=== PATIENT | female | born 1980 | race Caucasian/White ===

== ENCOUNTER 2016-09-12 09:26 | Emergency (ER) | payer OTHER ==
[~2016-09-12] VITALS: Ht 162.6 cm; Wt 96.7 kg
[~2016-09-12 09:26] MED LIST: ALBU1AER9 INH; CIPR-255 PO; CYCL10TA6 PO; DPPI400; GABA1CAP5 PO; IBUP-1450 PO; LISI-461 PO; LPT40 PO; NXM/40 PO
[2016-09-12 09:31] VITALS: TEMP 36.8; Ht 162.6 cm; Wt 96.7 kg
--- NOTE | 2016-09-12 09:58 | DIAGNOSTIC IMAGING REPORT ---
RIGHT HAND MIN 3 VIEWS ROUTINE CLINICAL HISTORY: Right hand pain and swelling. COMPARISON: None DISCUSSION: There is an old fifth metacarpal fracture. There are mild degenerative changes. No acute fractures are visualized. There are no dislocations. There is possible mild osteopenia.. IMPRESSION: 1. Old fifth metacarpal fracture. No acute fractures or dislocations identified. Electronically signed by: Jayro Duke M.D. 09/12/2016 9:57 AM Dictated Date/Time: 09/12/2016 9:55 AM
[2016-09-12] MEDS ORDERED: IBUPROFEN 600 MG TAB PO STA (10:10)
[2016-09-12 10:38] VITALS: BP 119/79; PULSE 95; O2SAT 98
--- NOTE | 2016-09-12 16:39 | EMERGENCY ROOM VISIT NOTE ---
ED Visit Note First contact with patient: 09:37 Chief Complaint: Right hand pain. History of Present Illness: Ms. Gonzalez is a 36-year-old white female who ambulates into the ED complaining of right hand pain over the fifth metacarpal. Historically patient reports she has broken this bone in the past. Patient reports she was struck in the hand over the fifth metacarpal last night with a automatic vulcanizing operator that was on a retract of a leash. She reports since that time she has been having severe sharp pain in that area. She rates her discomfort . Her pain is nonradiating. Her pain worsens with palpation and flexion and extension of the fifth MCP joint. She has not identified any alleviating factors related to the pain. She reports she has been using [id number] medications without relief of her discomfort. Associated with her pain she reports she has a tingling sensation throughout the little finger. She denies forearm pain, wrist pain, hand pain, other finger pain. Review of Systems: As noted above in history of present illness. Past Medical History: (1) Asthma (2) Benign hypertension (3) Deep venous thrombosis (4) Diabetes mellitus (5) Dyslipidemia (6) Kidney stone (7) Sepsis Surgical Problems: (1) Cholecystectomy Current Medications: Medications Dose Route/Sig Max Daily Dose Days Date Category Dose Instructions Cipro (Ciprofloxacin Hcl) 500 Mg Tab 1 Tab PO BID 10 02/12/16 Rx Flexeril (Cyclobenzaprine Hcl) 10 Mg Tab 1 Tab PO BID PRN 30 02/12/16 Reported Motrin (Ibuprofen) 600 Mg Tab 600 Mg PO Q6H PRN 05/05/15 Reported TAKE WITH FOOD Glucophage Ext Rel (Metformin Hcl) 1,000 Mg Tab 1,000 Mg PO BID 03/17/15 Reported Neurontin (Gabapentin) 400 Mg Cap 1 Cap PO TID 30 12/04/14 Reported Depo-Provera Contraceptive (Medroxyprogesterone Acetate (A) 400 Mg/ Inj Q 3 MONTHS 09/26/14 Reported Nexium (Esomeprazole Magnesium) 40 Mg Capcr 40 Mg PO BID 06/01/14 Reported Proair Hfa (Albuterol Sulfate) 108 Mcg/ Aer 2 Puffs INH QID PRN 02/20/14 Reported Atorvastatin Calcium (Atorvastatin) 40 Mg Tab 40 Mg PO HS 02/20/14 Reported Lisinopril 10 Mg Tab 10 Mg PO DAILY 02/20/14 Reported Allergies to Medications: Azithromycin, cephalexin, lidocaine, penicillin, procaine, tramadol. Social History: Patient feels safe in her home environment; she admits to tobacco use. Physical Examination: Vital Signs: Date Time Temp Pulse Resp B/P Pulse Ox O2 Delivery O2 Flow Rate FiO2 09/12/16 10:38 95 119/79 98 Room Air 09/12/16 09:31 36.8 106 22 130/69 96 Room Air GENERAL: 36-year-old female in mild to moderate distress due to pain, nontoxic- appearing, afebrile and hemodynamically stable. NEUROLOGICAL: Awake, alert and oriented to person, place and time. Answering questions appropriately and following commands. SKIN: Warm, dry and pink. No soft tissue trauma noted. RIGHT HAND: No gross bony deformity. No swelling, ecchymosis or erythema. Moderate tenderness over the fifth metacarpal without bony deformity, bony crepitus, swelling or or ecchymosis. No tenderness throughout the distal radius and ulna and the right little finger. Throughout the finger the skin was warm and pink and capillary refill is brisk. She is able to distinguish light sensations through all dermatomes of the finger. She had full range of motion in flexion and extension of the MCP joint and flexion and extension of all interphalangeal joints. ED Course: Patient is assessed as noted above. Patient was given ice for pain and comfort; she initially refused pain medications. Right Hand X-Rays: Were read by myself and the radiologist showing no acute fractures or dislocations. Patient was educated about tonight's findings and instructed on her treatment plan; she verbalizes understanding and agreement with this plan. Patient was placed in a ulnar gutter splint and given 600 mg of ibuprofen by mouth for pain. Patient was educated about today's findings and instructed on her treatment plan ; she verbalizes understanding and agreement with this plan. Clinical Impression: Right hand pain. Possible early contusion. Decision-Making: Initially my differential diagnosis I considered contusion, fracture, dislocation, sprain and other causes. Disposition: Patient discharged home in stable condition; prior to departure she was reassessed and subjectively reported she was feeling slightly better and rated her discomfort 6/10. Plan: Comfort measures were discussed with the patient including rest, splint use, ice and alternating ibuprofen and acetaminophen as needed for pain. Patient was encouraged to follow-up with proposal specialist if no better in 7 -8 days. Patient was encouraged return the ED for worsening pain, worsening numbness/ tingling, swelling, redness, red streaking, fevers or any new/concerning symptoms.
[2016-11-11] MEDS ORDERED: LPT40 PO (14:15)
[2016-11-11] MEDS ORDERED: LSN5 PO (14:15)
[2016-11-11] MEDS ORDERED: TPRSR25 PO (14:15)
[2016-11-11] MEDS ORDERED: ASPEC81 PO (14:15)
[2016-11-11] MEDS ORDERED: PLV75 PO (14:15)
[2016-11-11] MEDS ORDERED: LEVO1TAB34 PO (14:15)
[2016-11-11] MEDS ORDERED: NTRGSL4 SL (14:23)
[2016-11-11] MEDS ORDERED: RANI150T2 PO (14:30)
[2017-03-01] MEDS ORDERED: VNTHFA/IN INH (02:28)
[2017-03-01] MEDS ORDERED: METF1TAB53 PO (09:59)
[2017-03-01] MEDS ORDERED: ASPI81TA28 PO (15:38)
[2017-03-01] MEDS ORDERED: ATOR-26 PO (15:39)
[2017-03-01] MEDS ORDERED: CLOP1TAB15 PO (15:40)
[2017-03-01] MEDS ORDERED: NXM/40 PO (15:40)
[2017-03-01] MEDS ORDERED: LISI-461 PO (15:41)
[2017-03-01] MEDS ORDERED: NTRGSL/4 UT (15:42)
[2017-03-01] MEDS ORDERED: METO25TA3 PO (15:42)
[2017-03-01] MEDS ORDERED: GABA800T PO (16:03)
[2017-03-01] MEDS ORDERED: ACET-1256 PO (16:04)
[2017-03-01] MEDS ORDERED: HYDR-5688 PO (17:07)
[2017-03-01] MEDS ORDERED: SULF800T23 PO (17:07)
[2017-03-01] MEDS ORDERED: FLUC150T54 PO (17:48)
== END 2016-09-12 10:51 | disposition home or self-care (01) ==
LOC: C.EDB 09:28
DX: M79.641 Pain in right hand (principal); I10 Essential (primary) hypertension; E11.9 Type 2 diabetes mellitus without complications; E78.5 Hyperlipidemia, unspecified; J45.909 Unspecified asthma, uncomplicated; Z87.442 Personal history of urinary calculi; Z86.718 Personal history of other venous thrombosis and embolism; Z90.49 Acquired absence of other specified parts of digestive tract; Z88.0 Allergy status to penicillin; Z88.1 Allergy status to other antibiotic agents; Z88.8 Allergy status to other drugs, medicaments and biological substances

== ENCOUNTER 2016-10-09 11:03 | Emergency (ER) | payer OTHER ==
[~2016-10-09] VITALS: Ht 162.6 cm; Wt 96.0 kg
[2016-10-09 11:10] VITALS: TEMP 36.8; Ht 162.6 cm; Wt 96.0 kg
[2016-10-09] MEDS ORDERED: ALBU18002 (11:22)
[2016-10-09] MEDS ORDERED: MEDR150I19 INJ (11:22)
--- NOTE | 2016-10-09 11:59 | EMERGENCY ROOM VISIT NOTE ---
ED Visit Note First contact with patient: 11:30 I have seen and examined this patient with Saba Art and generally agree with the treatment plan as discussed. Problem List Medical Problems: (1) Asthma Status: Chronic (2) Benign hypertension Status: Chronic (3) Deep venous thrombosis Status: Resolved (4) Diabetes mellitus Status: Chronic (5) Dyslipidemia Status: Chronic (6) Kidney stone Status: Resolved Surgical Problems: (1) Cholecystectomy Status: Resolved Current/Historical Medications Scheduled Atorvastatin (Atorvastatin Calcium), 40 MG PO HS Esomeprazole Magnesium (Nexium), 40 MG PO BID Gabapentin (Neurontin), 400 MG PO TID Lisinopril (Lisinopril), 10 MG PO DAILY Metformin Hcl (Glucophage Ext Rel), 1,000 MG PO BID Scheduled PRN Ibuprofen (Motrin), 600 MG PO Q6H PRN for Pain Miscellaneous Medications Albuterol Sulfate (Proair Respiclick) Medroxyprogesterone Acetate (C (Medroxyprogesterone Aceta) Allergies Coded Allergies: Lidocaine (Verified Allergy, Intermediate, HIVES, 10/09/16) Procaine (Verified Allergy, Intermediate, HIVES, 10/09/16) Penicillins (Verified Allergy, Mild, HAD NO PROBLEM WITH ZOSYN, 10/09/16) [place] (Verified Allergy, Mild, HIVES, 10/09/16) Cephalexin (Verified Allergy, Unknown, ., 10/09/16) Egg (Verified Allergy, Unknown, `, 10/09/16) Tramadol (Verified Allergy, Unknown, SEIZURES, 10/09/16) Azithromycin (Verified Adverse Reaction, Mild, STOMACH PAINS, 10/09/16) Vital Signs Date Time Temp Pulse Resp B/P (MAP) Pulse Ox O2 Delivery O2 Flow Rate FiO2 10/09/16 11:10 36.8 124 18 126/64 97 Room Air Departure Information Referrals Irvin Iverson M.D. (PCP) Patient Instructions My [facility]
[2016-10-09] MEDS ORDERED: HYDROCODONE/ACETAMOPHEN 5/325MG TAB PO STA (12:04)
--- NOTE | 2016-10-09 12:13 | EMERGENCY ROOM VISIT NOTE ---
ED Visit Note First contact with patient: 12:01 CHIEF COMPLAINT: Possible abscess in the groin HISTORY OF PRESENT ILLNESS: This 36-year-old female with a history of recurrent abscesses presents the ER with chief complaint of a small area of pain in the left groin area that hurts when it rubs against her inner thigh. The patient thinks she might have an abscess. The patient denies any fevers. REVIEW OF SYSTEMS: 6 system review was performed and was negative unless stated otherwise in history of present illness. PMH: See chronic problem list SOCIAL HISTORY: Unchanged from prior ER visit. PHYSICAL EXAM: Vital Signs: Blood pressure 126/84 Were reviewed Reviewed Nurse' s notes. GENERAL: 36 year-old obese white female appears in no acute distress. MENTAL Status: Alert and oriented 3. GROIN: Left side there are multiple scars from old abscess drainages. No palpable abscess is noted at this time. No erythema or edema noted. The area is tender to palpation. EMERGENCY DEPARTMENT COURSE: The patient's EMR medication list were reviewed. The patient was independently evaluated by Dr. Che who agrees with treatment plan. The patient was evaluated. The patient was given Mullens 5/325 mg to tell as per for pain. I accessed the prescription drug monitoring program and there are no current narcotic prescriptions. Therefore she will be given a few days of pain medications on discharge. The patient was informed that her blood pressure was 126/84 and that we recommend follow-up in her family physician in 2 days for blood pressure recheck. The patient was discharged home in stable condition. DIAGNOSIS: Left groin pain DISCHARGE INSTRUCTIONS & TREATMENT: Keep area is cool and dry as possible. Take doxycycline as prescribed. Ibuprofen as needed for pain. Take Mullens as needed for more severe pain. Do not drive with taking the Mullens. Blood pressure was 126/86 today in the ER. Follow-up with your family doctor in 2 days for blood pressure recheck. Problem List Medical Problems: (1) Asthma Status: Chronic (2) Benign hypertension Status: Chronic (3) Deep venous thrombosis Status: Resolved (4) Diabetes mellitus Status: Chronic (5) Dyslipidemia Status: Chronic (6) Kidney stone Status: Resolved Surgical Problems: (1) Cholecystectomy Status: Resolved Current/Historical Medications Scheduled Atorvastatin (Atorvastatin Calcium), 40 MG PO HS Doxycycline Hyclate (Vibramycin), 100 MG PO BID Esomeprazole Magnesium (Nexium), 40 MG PO BID Gabapentin (Neurontin), 400 MG PO TID Lisinopril (Lisinopril), 10 MG PO DAILY Metformin Hcl (Glucophage Ext Rel), 1,000 MG PO BID Scheduled PRN Hydrocodone/Acetaminophen 5MG/325MG (Mullens 5MG/325MG), 1-2 TABLET PO Q6 PRN for Pain Ibuprofen (Motrin), 600 MG PO Q6H PRN for Pain Miscellaneous Medications Albuterol Sulfate (Proair Respiclick) Medroxyprogesterone Acetate (C (Medroxyprogesterone Aceta) Allergies Coded Allergies: Lidocaine (Verified Allergy, Intermediate, HIVES, 10/09/16) Procaine (Verified Allergy, Intermediate, HIVES, 10/09/16) Penicillins (Verified Allergy, Mild, HAD NO PROBLEM WITH ZOSYN, 10/09/16) [place] (Verified Allergy, Mild, HIVES, 10/09/16) Cephalexin (Verified Allergy, Unknown, ., 10/09/16) Egg (Verified Allergy, Unknown, `, 10/09/16) Tramadol (Verified Allergy, Unknown, SEIZURES, 10/09/16) Azithromycin (Verified Adverse Reaction, Mild, STOMACH PAINS, 10/09/16) Vital Signs Date Time Temp Pulse Resp B/P (MAP) Pulse Ox O2 Delivery O2 Flow Rate FiO2 10/09/16 11:10 36.8 124 18 126/64 97 Room Air Medications Administered Medications (Trade) Dose Ordered Sig/Bonny Route Start Time Stop Time Status Last Admin Dose Admin Acetaminophen/ Hydrocodone Bitart (Mullens 5/325 Tab) 2 tab NOW STAT PO 10/09/16 12:04 10/09/16 12:05 DC 10/09/16 12:09 2 TAB Departure Information Prescriptions Hydrocodone/Acetaminophen 5MG/325MG (Mullens 5MG/325MG) Tab 1-2 TABLET PO Q6 Y for Pain, #14 TAB For Initial Treatment Prov: Destinee Art PA-C 10/09/16 Doxycycline Hyclate (VIBRAMYCIN) 100 Mg Cap 100 MG PO BID for 5 Days, #10 CAP Prov: Destinee Art PA-C 10/09/16 Referrals Irvin Iverson M.D. (PCP) Patient Instructions [facility]
[2016-10-09] MEDS ORDERED: DOXY100C2 PO (12:16)
[2016-10-09] MEDS ORDERED: HYDR-5688 PO (12:16)
[2016-10-09 12:25] VITALS: BP 121/73; PULSE 112; O2SAT 97
[2016-11-11] MEDS ORDERED: LSN5 PO (14:15)
[2016-11-11] MEDS ORDERED: LEVO1TAB34 PO (14:15)
[2016-11-11] MEDS ORDERED: LPT40 PO (14:15)
[2016-11-11] MEDS ORDERED: TPRSR25 PO (14:15)
[2016-11-11] MEDS ORDERED: PLV75 PO (14:15)
[2016-11-11] MEDS ORDERED: ASPEC81 PO (14:15)
[2016-11-11] MEDS ORDERED: NTRGSL4 SL (14:23)
[2016-11-11] MEDS ORDERED: RANI150T2 PO (14:30)
[2017-03-01] MEDS ORDERED: VNTHFA/IN INH (02:28)
[2017-03-01] MEDS ORDERED: METF1TAB53 PO (09:59)
[2017-03-01] MEDS ORDERED: ASPI81TA28 PO (15:38)
[2017-03-01] MEDS ORDERED: ATOR-26 PO (15:39)
[2017-03-01] MEDS ORDERED: CLOP1TAB15 PO (15:40)
[2017-03-01] MEDS ORDERED: NXM/40 PO (15:40)
[2017-03-01] MEDS ORDERED: LISI-461 PO (15:41)
[2017-03-01] MEDS ORDERED: NTRGSL/4 UT (15:42)
[2017-03-01] MEDS ORDERED: METO25TA3 PO (15:42)
[2017-03-01] MEDS ORDERED: GABA800T PO (16:03)
[2017-03-01] MEDS ORDERED: ACET-1256 PO (16:04)
[2017-03-01] MEDS ORDERED: SULF800T23 PO (17:07)
[2017-03-01] MEDS ORDERED: HYDR-5688 PO (17:07)
[2017-03-01] MEDS ORDERED: FLUC150T54 PO (17:48)
== END 2016-10-09 12:26 | disposition home or self-care (01) ==
LOC: C.EDB 11:06 → C.EDC 12:26
DX: R10.30 Lower abdominal pain, unspecified (principal); I10 Essential (primary) hypertension; E11.9 Type 2 diabetes mellitus without complications; E78.5 Hyperlipidemia, unspecified; J45.909 Unspecified asthma, uncomplicated; Z86.718 Personal history of other venous thrombosis and embolism; Z87.442 Personal history of urinary calculi; Z90.49 Acquired absence of other specified parts of digestive tract; Z79.84 Long term (current) use of oral hypoglycemic drugs; Z79.899 Other long term (current) drug therapy; Z88.0 Allergy status to penicillin; Z88.1 Allergy status to other antibiotic agents; Z88.2 Allergy status to sulfonamides; Z88.8 Allergy status to other drugs, medicaments and biological substances; Z91.012 Allergy to eggs; Z91.018 Allergy to other foods; Z91.09 Other allergy status, other than to drugs and biological substances

== ENCOUNTER 2016-11-09 00:23 | Emergency (ER) | payer OTHER ==
[~2016-11-09] VITALS: Ht 162.6 cm; Wt 95.3 kg
[~2016-11-09 00:23] MED LIST changes: +ALBU18002; -ALBU1AER9 INH; -CIPR-255 PO; -CYCL10TA6 PO; +DOXY100C2 PO; -DPPI400; +HYDR-5688 PO; +MEDR150I19 INJ; +METF1TAB53 PO
[2016-11-09 00:37] VITALS: TEMP 37.5; Ht 162.6 cm; Wt 95.3 kg
[2016-11-09] MEDS ORDERED: ALBUT/IPRATROP 3MG/0.5MG NEB 3 ML VIAL INH STA (01:15)
[2016-11-09] MEDS ORDERED: KETOROLAC TROMETHAMINE 30 MG/ML VIAL IV STA (01:15)
[2016-11-09 01:47] LABS: MEAN CELL VOLUME 85.5 fL (80-100); MEAN CORPUSCULAR HEMOGLOBIN 26.6 pg (25-34); MEAN CORPUSCULAR HGB CONC 31.1 g/dl (32-36); MEAN PLATELET VOLUME 9.9 fL (7.4-10.4); PLATELET COUNT 429 K/uL (130-400); RED BLOOD COUNT 4.33 M/uL (4.2-5.4); WHITE BLOOD COUNT 20.93 K/uL (4.8-10.8)
[2016-11-09 02:03] LABS: BUN/CREATININE RATIO 14.5 (10-20); POTASSIUM 3.6 mmol/L (3.5-5.1)
[2016-11-09 02:14] LABS: PREG INTERNAL NEGATIVE QC NEG CLEAR BACKGROUND; PREG INTERNAL POSITIVE QC POS CONTROL LINE
[2016-11-09 02:17] LABS: BASO ABS # 0.19 K/uL (0-0.2); BASOPHIL % 0.9 %; COMPLETE YES; EOSINOPHIL % 0.9 %; LYMPHOCYTE % 33.9 %; MYELOCYTE % 0.9 %; NEUTROPHILS % 59.1 %
[2016-11-09] MEDS ORDERED: VNTHFA/IN INH (02:28)
[2016-11-09] MEDS ORDERED: DOXY100C PO (02:29)
[2016-11-09 02:57] VITALS: BP 114/82; PULSE 90; O2SAT 97
--- NOTE | 2016-11-09 04:55 | EMERGENCY ROOM VISIT NOTE ---
History First contact with patient: 00:51 Chief Complaint: RIB PAIN Stated Complaint: LEFT SIDED RIB PAIN History of Present Illness The patient is a 36 year old female who presents to the Emergency Room with complaints of cough, congestion, left-sided chest pain for the past day he was diagnosed with pneumonia a few days ago by the family care who is currently on doxycycline and prednisone taper pack. Patient continues to smoke. She describes pain as aching, ranging in severity 5 out of 10 worse with coughing and better with rest. Patient felt a pop after coughing and notes when the pain started. Patient does have high blood pressure, cholesterol, diabetes and smokes at the family history of heart disease. No recent heart testing. Patient denies dyspnea, abdominal pain, diaphoresis, back pain, headache, neck stiffness, leg pain or swelling. Review of Systems See HPI for pertinent positives & negatives. A total of 10 systems reviewed and were otherwise negative. Past Medical/Surgical History Medical Problems: (1) Asthma (2) Benign hypertension (3) Deep venous thrombosis (4) Diabetes mellitus (5) Dyslipidemia (6) Kidney stone (7) Sepsis Surgical Problems: (1) Cholecystectomy Family History Diabetes mellitus FH: gallbladder disease FH: heart disease FH: lung disease Hypertension Kidney stones Social History Smoking Status: Current Every Day Smoker Alcohol Use: none Drug Use: none Marital Status: single Housing Status: lives with family Occupation Status: unemployed Current/Historical Medications Scheduled Atorvastatin (Atorvastatin Calcium), 40 MG PO HS Doxycycline Hyclate (Vibramycin), 100 MG PO BID Esomeprazole Magnesium (Nexium), 40 MG PO BID Gabapentin (Neurontin), 400 MG PO TID Lisinopril (Lisinopril), 10 MG PO DAILY Medroxyprogesterone Acetate (C (Medroxyprogesterone Aceta), 1 DOSE INJ [id number] Metformin Hcl (Glucophage Ext Rel), 1,000 MG PO BID Scheduled PRN Albuterol Hfa (Ventolin Hfa), 2 PUFFS INH Q6H PRN for SOB/Wheezing Ibuprofen (Motrin), 600 MG PO Q6H PRN for Pain Allergies Coded Allergies: Lidocaine (Verified Allergy, Intermediate, HIVES, 11/09/16) Procaine (Verified Allergy, Intermediate, HIVES, 11/09/16) Penicillins (Verified Allergy, Mild, HAD NO PROBLEM WITH ZOSYN, 11/09/16) [place] (Verified Allergy, Mild, HIVES, 11/09/16) Cephalexin (Verified Allergy, Unknown, ., 11/09/16) Egg (Verified Allergy, Unknown, `, 11/09/16) Tramadol (Verified Allergy, Unknown, SEIZURES, 11/09/16) Azithromycin (Verified Adverse Reaction, Mild, STOMACH PAINS, 11/09/16) Physical Exam Vital Signs Date Time Temp Pulse Resp B/P (MAP) Pulse Ox O2 Delivery O2 Flow Rate FiO2 11/09/16 02:57 90 18 114/82 97 11/09/16 02:42 92 18 136/72 95 Room Air 11/09/16 01:34 84 11/09/16 01:29 86 18 129/79 98 Room Air 11/09/16 00:37 37.5 89 20 134/77 99 Room Air Pain Rating (0-10): 7.0 Physical Exam VITALS: Vitals are noted on the nurse's note and reviewed by myself. Vital signs stable. GENERAL: Pleasant female, in no acute distress, nondiaphoretic, well-developed well-nourished. SKIN: The skin was without rashes, erythema, edema, or bruising. There is no tenting of the skin. Capillary reflex less than 2 seconds. HEAD: Normocephalic atraumatic. EARS: External auditory canals clear, tympanic membranes pearly bower without erythema or effusion bilaterally. EYES: Pupils equal round and reactive to light and accommodation. Conjunctivae without injection, sclerae without icterus. Extraocular movements intact. NOSE: Patent, turbinates without inflammation or discharge. MOUTH: Mucous membranes moist. pharynx without erythema or exudate. Uvula midline. Airway patent. Tongue does not deviate. NECK: Supple without nuchal rigidity. No lymphadenopathy. No thyromegaly. Cervical spine is nontender. No JVD. HEART: Regular rate and rhythm without murmurs gallops or rubs. Left lateral chest wall tender to palpation easily reproducing symptoms LUNGS: Mild diffuse end expiratory wheezes, without rales or rhonchi. No dullness to percussion. No retractions or accessory muscle use. ABDOMEN: Positive bowel sounds x 4. Normal tympanic percussion. Soft, nontender, without masses or organomegaly. Hunt sign negative. No guarding or rebound tenderness. MUSCULOSKELETAL: No muscle atrophy, erythema, or edema noted. NEURO: Patient was alert and oriented to person place and time. Normal sensation to light and sharp touch. No focal neurological deficits. Medical Decision & Procedures Laboratory Results 11/09/16 01:34 Red Blood Count 4.33, Mean Corpuscular Volume 85.5, Mean Corpuscular Hemoglobin 26.6, Mean Corpuscular Hemoglobin Concent 31.1, Mean Platelet Volume 9.9 11/09/16 01:34 Test 11/09/16 01:34 White Blood Count 20.93 K/uL (4.8-10.8) Red Blood Count 4.33 M/uL (4.2-5.4) Hemoglobin 11.5 g/dL (12.0-16.0) Hematocrit 37.0 % (37-47) Mean Corpuscular Volume 85.5 fL (80-100) Mean Corpuscular Hemoglobin 26.6 pg (25-34) Mean Corpuscular Hemoglobin Concent 31.1 g/dl (32-36) Platelet Count 429 K/uL (130-400) Mean Platelet Volume 9.9 fL (7.4-10.4) RDW Standard Deviation 51.7 fL (36.4-46.3) RDW Coefficient of Variation 16.4 % (11.5-14.5) Neutrophils % (Manual) 59.1 % Lymphocytes % (Manual) 33.9 % Monocytes % (Manual) 4.3 % Eosinophils % (Manual) 0.9 % Basophils % (Manual) 0.9 % Myelocytes % 0.9 % Neutrophils # (Manual) 12.37 K/uL (1.4-6.5) Total Absolute Neutrophils 12.37 K/uL (1.4-6.5) Lymphocytes # (Manual) 7.10 K/uL (1.2-3.4) Total Absolute Lymphocytes 7.10 K/uL (1.2-3.4) Monocytes # (Manual) 0.90 K/uL (0.11-0.59) Eosinophils # (Manual) 0.19 K/uL (0-0.5) Basophils # (Manual) 0.19 K/uL (0-0.2) Myelocytes # 0.19 K/uL (0-0) Red Blood Cell Morphology Unremarkable Anion Gap 11.0 mmol/L (3-11) Est Creatinine Clear Calc Drug Dose 85.4 ml/min Estimated GFR () 82.8 Estimated GFR (Non- 71.4 BUN/Creatinine Ratio 14.5 (10-20) Calcium Level 9.0 mg/dl (8.5-10.1) Troponin I 6.290 ng/ml (0-0.045) Human Chorionic Gonadotropin, Qual NEG (NEG) Medications Administered Medications (Trade) Dose Ordered Sig/Bonny Route Start Time Stop Time Status Last Admin Dose Admin Ketorolac Tromethamine (Toradol Inj) 30 mg NOW STAT IV 11/09/16 01:15 11/09/16 01:18 DC 11/09/16 02:03 30 MG Albuterol/ Ipratropium (Duoneb) 3 ml NOW STAT INH 11/09/16 01:15 11/09/16 01:18 DC 11/09/16 02:04 3 ML ED Course Prior records/ancillary studies reviewed. Triage Nursing notes reviewed. Additional history obtained from round. The patient's history was concerning for chest pain. Differential diagnosis: Etiologies such as cardiac ischemia, aortic dissection, pulmonary embolism, pneumonia, pneumothorax, musculoskeletal, infections, pericarditis, myocarditis , esophageal rupture, gastrointestinal, as well as others were entertained. Physical examination: As above. ER treatment provided: Nebulizer, Toradol On reassessment the patient felt better. Diagnostic interpretation by me: The electrocardiogram was normal sinus, minimal ST depression in the lateral leads, normal axis, rate of 94. Impression normal sinus rhythm with minimal ST depression in the lateral leads interpreted by myself repeat EKG is unchanged. The labs revealed leukocytosis, elevated troponin Imaging studies: Chest CT concerning for pneumonitis Rib x-ray series with no obvious fracture per my interpretation Exam and history seem consistent with non-STEMI. Patient is refusing admission as she is childcare issues. She is requesting to leave. She was informed that she is at risk for cardiac and further heart damage. Patient understands this and states she has to leave to care for her child and figure out childcare issues. Patient is advised she is welcome back in the meantime for further evaluation and workup. She has multiple risk factors for heart disease such as high blood pressure, cholesterol, diabetes, she smokes and her history of this.By the evaluation outlined above emergent etiologies such as aortic dissection, pulmonary embolism, pneumothorax, pericarditis, myocarditis, gastrointestinal, as well as others were deemed relatively unlikely. AMA paperwork was filled out. The pt informed about the findings as listed above. All questions were answered and pleased with the treatment. Return instructions were outlined and the patient was discharged in stable condition. Case reviewed with my attending Referral: The patient was referred back to ER for further workup and primary care physician for follow-up in 2 to 3 days for a recheck of the current condition. Medical Decision As above Impression Primary Impression: Non-STEMI (non-ST elevated myocardial infarction) Additional Impression: Pneumonitis Departure Information Dispostion Against Medical Advice Condition FAIR Forms WORK / SCHOOL INSTRUCTIONS, HOME CARE DOCUMENTATION FORM, IMPORTANT VISIT INFORMATION Patient Instructions Heart Attack Sx, Heart Attack Angina Recognize, My [facility] [employer] Additional Instructions Your are leaving AGAINST MEDICAL ADVICE. You're at risk for heart attack and/ or . I strongly recommend that you return to the ER for further cardiac workup. You're welcome to return at any time for further evaluation and workup. Problem Qualifiers
--- NOTE | 2016-11-09 07:14 | DIAGNOSTIC IMAGING REPORT ---
LEFT RIBS UNILATERAL WITH PA CHEST CLINICAL HISTORY: 36 years-old Female presenting with Left rib pain, cough. TECHNIQUE: Frontal and oblique views of the left ribs and PA view of the chest were obtained. COMPARISON: Chest CT from 2015. FINDINGS: Cardiomediastinal silhouette normal. Lungs and pleural spaces clear. Osseous structures normal. No evidence of rib fracture. Upper abdomen normal. IMPRESSION: 1. No acute cardiopulmonary disease or acute osseous injury. Electronically signed by: Irvin Fox M.D. 11/09/2016 7:12 AM Dictated Date/Time: 11/09/2016 7:10 AM
--- NOTE | 2016-11-09 07:19 | DIAGNOSTIC IMAGING REPORT ---
(CHEST) THORAX WITHOUT CLINICAL HISTORY: Severe left-sided chest pain after coughing. History of pneumonia. COMPARISON STUDY: 01/06/2015 CT DOSE: 1037.42 mGy.cm TECHNIQUE: CT of the thorax was performed from the thoracic inlet to the lung bases. Images are reviewed in the axial, sagittal, and coronal planes. IV contrast was not administered for this examination. FINDINGS: Thyroid: The thyroid appears mildly enlarged. There is an equivocal 18 mm left lobe thyroid nodule. Thoracic aorta: The thoracic aorta is normal in course and caliber, noting standard 3 vessel arch anatomy. Heart: There are coronary artery calcifications. There is no significant pericardial effusion. Lungs and pleural spaces: There is respiratory motion artifact. There are patchy left lower lobe airspace opacities, likely inflammatory. Imaging subsequent to treatment is recommended in follow-up. There is a suggestion of multiple tiny pulmonary nodules. This should be reassessed on follow-up imaging. No pneumothorax is visualized Mediastinum: Mediastinal lymph nodes are the upper limits of normal in size. Sameera: There is no evidence of pathologic hilar adenopathy given the limitations of a noncontrast study Axilla: Clear. Upper abdomen: The gallbladder surgically absent. Skeletal structures: There are old left-sided rib deformities. No acute fractures are evident. IMPRESSION: 1. Technically limited study secondary to respiratory motion artifact 2. Patchy left lower lobe airspace opacities, statistically inflammatory. 3. Equivocal diffuse miliary nodules, a finding not described on the preliminary report. 4. Mediastinal lymph nodes the upper limits of normal in size 5. No evidence of pneumothorax. No acute rib fractures identified 6. A 6 week follow-up CT scan subsequent to antibiotic therapy is recommended 7. 18 mm left lobe thyroid nodule Electronically signed by: Jayro Duke M.D. 11/09/2016 7:18 AM Dictated Date/Time: 11/09/2016 7:10 AM
[2016-11-11] MEDS ORDERED: ASPEC81 PO (14:15)
[2016-11-11] MEDS ORDERED: TPRSR25 PO (14:15)
[2016-11-11] MEDS ORDERED: LEVO1TAB34 PO (14:15)
[2016-11-11] MEDS ORDERED: PLV75 PO (14:15)
[2016-11-11] MEDS ORDERED: LPT40 PO (14:15)
[2016-11-11] MEDS ORDERED: LSN5 PO (14:15)
[2016-11-11] MEDS ORDERED: NTRGSL4 SL (14:23)
[2016-11-11] MEDS ORDERED: RANI150T2 PO (14:30)
== END 2016-11-09 02:57 | disposition left against medical advice (07) ==
LOC: C.EDB 00:24 → C.EDC 02:57
DX: I21.4 Non-ST elevation (NSTEMI) myocardial infarction (principal); J18.9 Pneumonia, unspecified organism; J45.909 Unspecified asthma, uncomplicated; I10 Essential (primary) hypertension; E11.9 Type 2 diabetes mellitus without complications; E78.5 Hyperlipidemia, unspecified; Z83.3 Family history of diabetes mellitus; Z82.49 Family history of ischemic heart disease and other diseases of the circulatory system; F17.200 Nicotine dependence, unspecified, uncomplicated

== ENCOUNTER 2016-11-10 15:58 | Inpatient (IN) | payer OTHER ==
[~2016-11-10] VITALS: Ht 162.6 cm; Wt 93.9 kg
[~2016-11-10 15:58] MED LIST changes: -ALBU18002; +DOXY100C PO; -DOXY100C2 PO; -HYDR-5688 PO; +VNTHFA/IN INH
[2016-11-10] MEDS ORDERED: NITROGLYCERIN OINT 2% 1GM PACKET EXT ONE (16:15)
[2016-11-10] MEDS ORDERED: METOPROLOL TARTRATE 1 MG/ML VIAL IV STA (16:15)
--- NOTE | 2016-11-10 16:23 | EMERGENCY ROOM VISIT NOTE ---
History First contact with patient: 16:03 Chief Complaint: CHEST PAIN Stated Complaint: CHEST PAIN Nursing Triage Summary: Presents via ALS with chest pain starting 1 1/2 hrs ago radiating into the left shoulder 10/10 pain. Verbalizing she was diagnosed with Pnx last Saturday and was started on abx with PCP, then last came to ED with CP, was told "my bloodwork said a probable heart attack but I left AMA because I didn't have anyone to take care of my son. The pain has been constant since then but got significantly worse today". Received 4 baby [employer] by ALS. History of Present Illness The patient is a 36 year old female who presents to the Emergency Room with complaints of severe, left-sided chest pain that started 1 hour prior to arrival. She has been experiencing intermittent chest pain over the last several days. The patient was evaluated in the emergency department 2 days ago for chest pain. She was found to have an elevated troponin and ST depressions on her EKG. It was recommended that she be admitted for an NSTEMI. The patient ended up signing out AGAINST MEDICAL ADVICE ago she did not have anyone to watch her child. Today with the chest pain, she is also complaining of feeling very sweaty and hot. She is mildly nauseated. She also is having slight shortness of breath. She no longer has a productive cough. She denies any fever symptoms. Review of Systems 10 system review performed and negative unless noted in HPI or below Past Medical/Surgical History Medical Problems: (1) Asthma (2) Benign hypertension (3) Chest pain (4) Deep venous thrombosis (5) Diabetes mellitus (6) Dyslipidemia (7) Kidney stone (8) Sepsis Surgical Problems: (1) Cholecystectomy Family History Diabetes mellitus FH: gallbladder disease FH: heart disease FH: lung disease Hypertension Kidney stones Social History Smoking Status: Current Every Day Smoker Alcohol Use: none Drug Use: none Marital Status: single Housing Status: lives with family Occupation Status: unemployed Current/Historical Medications Scheduled Atorvastatin (Atorvastatin Calcium), 40 MG PO HS Doxycycline Hyclate (Vibramycin), 100 MG PO BID Esomeprazole Magnesium (Nexium), 40 MG PO BID Gabapentin (Neurontin), 400 MG PO TID Lisinopril (Lisinopril), 10 MG PO DAILY Medroxyprogesterone Acetate (C (Medroxyprogesterone Aceta), 1 DOSE INJ [id number] Metformin Hcl (Glucophage Ext Rel), 1,000 MG PO BID Scheduled PRN Albuterol Hfa (Ventolin Hfa), 2 PUFFS INH Q6H PRN for SOB/Wheezing Ibuprofen (Motrin), 600 MG PO Q6H PRN for Pain Allergies Coded Allergies: Lidocaine (Verified Allergy, Intermediate, HIVES, 11/09/16) Procaine (Verified Allergy, Intermediate, HIVES, 11/09/16) Penicillins (Verified Allergy, Mild, HAD NO PROBLEM WITH ZOSYN, 11/09/16) Pollock (Verified Allergy, Mild, HIVES, 11/09/16) Cephalexin (Verified Allergy, Unknown, ., 11/09/16) Egg (Verified Allergy, Unknown, `, 11/09/16) Tramadol (Verified Allergy, Unknown, SEIZURES, 11/09/16) Azithromycin (Verified Adverse Reaction, Mild, STOMACH PAINS, 11/09/16) Physical Exam Vital Signs Date Time Temp Pulse Resp B/P (MAP) Pulse Ox O2 Delivery O2 Flow Rate FiO2 11/10/16 17:24 88 18 116/65 99 Nasal Cannula 2.0 11/10/16 16:44 88 22 116/61 97 Nasal Cannula 2.0 11/10/16 16:35 103 138/95 11/10/16 16:30 103 11/10/16 16:09 99 Room Air 11/10/16 16:09 99 Room Air 11/10/16 16:09 37.7 95 20 138/95 99 Room Air Physical Exam VITALS: Vitals are noted on the nurse's note and reviewed by myself. Vital signs stable. GENERAL: 36-year-old female, obese, anxious in appearance, nondiaphoretic SKIN: The skin was without rashes, erythema, edema, or bruising. HEAD: Normocephalic atraumatic. MOUTH: Mucous membranes slightly dry NECK: Supple without nuchal rigidity. No lymphadenopathy. Cervical spine is nontender. No JVD. HEART: Regular rate and rhythm. Faint systolic murmur noted. No rubs or gallops. LUNGS: Mild diffuse wheezing and decreased breath sounds at the left base ABDOMEN: Positive bowel sounds x 4.Soft, nontender, without organomegaly. No guarding or rebound tenderness. MUSCULOSKELETAL: No muscle atrophy, erythema, or edema noted. Strength 5/5 throughout. NEURO: Patient was alert and oriented to person place and time. Normal sensation to touch. No focal neurological deficits. Medical Decision & Procedures ER Provider Diagnostic Interpretation: Patient: ROGER WEEKS Address1: [address] [facility] Rec: [id number] Address2: Acct ID: [id number] [facility] Zip: [id number] Date: 1980 Sex: F Room/Bed: Ref Phy: Irvin Iverson M.D. SC: JACKIE Att Phy: Report #: [id number] Helga Phy: Irvin Iverson M.D. Test: [id number] Admit Phy: Bung Dropper: ANNALISE Interpreting Phy: Dale Art M.D. Diagnosis: CHEST PAIN Ordering Phy: Neela Diego PA-C Service Date: 11/10/16 Admit Date: 11/10/16 MNE: [id number] CONF: DICTATED BY: Dale Art M.D.]] CC: Irvin Iverson M.D., Kevin, D.O. Urban, Angela P., PA-C Endcc: [~ rep ct add3]] CHEST ONE VIEW PORTABLE CLINICAL HISTORY: L sided CP dyspnea COMPARISON STUDY: 12/28/2014 FINDINGS: Patchy basilar parenchymal infiltrates seen patient's recent CT the chest. There are no consolidative infiltrates. Pulmonary procedure clear. Subtle miliary changes present, also described IMPRESSION: Patchy basilar parenchymal infiltrates similar to the patient's CT examination dated 11/09/2016 The above report was generated using voice recognition software. It may contain grammatical, syntax or spelling errors. Electronically signed by: Dale Art M.D. 11/10/2016 5:04 PM Dictated Date/Time: 11/10/2016 5:03 PM The status of this report is Signed. Draft = Not yet reviewed or approved by Radiologist. Signed = Reviewed and approved by Radiologist. <AttendingPhy></AttendingPhy> <FamilyPhy>Irvin Iverson M.D.</FamilyPhy> < PrimaryPhy>Irvin Iverson M.D.</PrimaryPhy> <UnitNumber>[id number]</UnitNumber> < VisitNumber>[id number]</VisitNumber> <PatientName>ROGER WEEKS</PatientName > <DateOfBirth>1980</DateOfBirth> <Location>[facility]</Location> <ServiceDate> 11/10/16</ServiceDate> <MNE>ESINDI</MNE> <OrderingPhy>JohnathonNeela Horacio LAM</ OrderingPhy> <OrderingPhyMNE>f rep ord dr lawler</OrderingPhyMNE> <DictatingPhyMNE> f rep dict dr lawler</DictatingPhyMNE> <CCListMNE>f rep ct mne</CCListMNE> < AdmittingPhyMNE>f pt admit dr lawler</AdmittingPhyMNE> <AttendingPhyMNE Laboratory Results 11/10/16 16:15 Red Blood Count 4.44, Mean Corpuscular Volume 86.0, Mean Corpuscular Hemoglobin 27.7, Mean Corpuscular Hemoglobin Concent 32.2, Mean Platelet Volume 10.0, Neutrophils (%) (Auto) 90.6, Lymphocytes (%) (Auto) 6.8, Monocytes (%) (Auto) 1.9, Eosinophils (%) (Auto) 0.0, Basophils (%) (Auto) 0.1, Neutrophils # (Auto) 20.00, Lymphocytes # (Auto) 1.50, Monocytes # (Auto) 0.41, Eosinophils # (Auto) 0.00, Basophils # (Auto) 0.02 11/10/16 16:15 Test 11/10/16 16:15 White Blood Count 22.06 K/uL (4.8-10.8) Red Blood Count 4.44 M/uL (4.2-5.4) Hemoglobin 12.3 g/dL (12.0-16.0) Hematocrit 38.2 % (37-47) Mean Corpuscular Volume 86.0 fL (80-100) Mean Corpuscular Hemoglobin 27.7 pg (25-34) Mean Corpuscular Hemoglobin Concent 32.2 g/dl (32-36) Platelet Count 459 K/uL (130-400) Mean Platelet Volume 10.0 fL (7.4-10.4) Neutrophils (%) (Auto) 90.6 % Lymphocytes (%) (Auto) 6.8 % Monocytes (%) (Auto) 1.9 % Eosinophils (%) (Auto) 0.0 % Basophils (%) (Auto) 0.1 % Neutrophils # (Auto) 20.00 K/uL (1.4-6.5) Lymphocytes # (Auto) 1.50 K/uL (1.2-3.4) Monocytes # (Auto) 0.41 K/uL (0.11-0.59) Eosinophils # (Auto) 0.00 K/uL (0-0.5) Basophils # (Auto) 0.02 K/uL (0-0.2) RDW Standard Deviation 52.3 fL (36.4-46.3) RDW Coefficient of Variation 16.5 % (11.5-14.5) Immature Granulocyte % (Auto) 0.6 % Immature Granulocyte # (Auto) 0.13 K/uL (0.00-0.02) Prothrombin Time 10.8 SECONDS (9.0-12.0) Prothromb Time International Ratio 1.0 (0.9-1.1) Activated Partial Thromboplast Time 24.3 SECONDS (21.0-31.0) Partial Thromboplastin Ratio 0.9 D-Dimer 230 ug/L FEU (0-500) Anion Gap 13.0 mmol/L (3-11) Est Creatinine Clear Calc Drug Dose 65.7 ml/min Estimated GFR () 60.3 Estimated GFR (Non- 52.0 BUN/Creatinine Ratio 14.8 (10-20) Osmolality 302 mOsm/kg (280-300) Calcium Level 8.9 mg/dl (8.5-10.1) Magnesium Level 2.0 mg/dl (1.8-2.4) Total Bilirubin 0.2 mg/dl (0.2-1) Aspartate Amino Transf (AST/SGOT) 9 U/L (15-37) Alanine Aminotransferase (ALT/SGPT) 29 U/L (12-78) Alkaline Phosphatase 76 U/L (45-117) Total Protein 7.1 gm/dl (6.4-8.2) Albumin 3.7 gm/dl (3.4-5.0) Globulin 3.4 gm/dl (2.5-4.0) Albumin/Globulin Ratio 1.1 (0.9-2) Beta-Hydroxybutyric Acid 2.46 mg/dL (0.2-2.81) Medications Administered Medications (Trade) Dose Ordered Sig/Bonny Route Start Time Stop Time Status Last Admin Dose Admin Morphine Sulfate (MoRPHine SULFATE INJ) 4 mg Q1H PRN IV 11/10/16 16:15 11/10/16 19:51 DC 11/10/16 17:41 4 MG Nitroglycerin (Nitroglycerin 2% Oint) 1 inch NOW ONCE EXT 11/10/16 16:15 11/10/16 16:19 DC 11/10/16 16:35 1 INCH Metoprolol Tartrate (Lopressor Iv) 5 mg NOW STAT IV 11/10/16 16:15 11/10/16 16:19 DC 11/10/16 16:35 5 MG Sodium Chloride 1,000 ml @ 999 mls/hr Q1H1M ONCE IV 11/10/16 17:15 11/10/16 18:15 DC 11/10/16 17:42 999 MLS/HR Enoxaparin Sodium (Lovenox Inj) 100 mg ONE STAT SQ 11/10/16 17:23 11/10/16 17:24 DC 11/10/16 17:41 100 MG ECG Indication: chest pain Rate (beats per minute): 93 Rhythm: normal sinus Findings: nonspecific-ST abn Change: no significant change ED Course Patient was seen and examined Vital signs including blood pressure were reviewed medications list was verified with patient Labs were obtained, and a saline lock was established Nitroglycerin 1 inch was applied. She was given morphine 4 mg IV, Lopressor 5 mg IV The patient received 4 aspirin in route An EKG was performed and reviewed The case was discussed with my supervising physician The patient was given 1 dose of Lovenox 100 mg I discussed the case with the [facility] hospitalist who kindly agreed to admit the patient for further workup and treatment. Medical Decision Differential diagnosis: Acute myocardial infarction, cardiac arrhythmia, anemia , thyroid abnormality, pneumothorax, pneumonia, bronchitis, pericarditis, electrolyte imbalance, musculoskeletal pain, drug-seeking behavior This patient is a 36-year-old female that returns to the emergency department with complains of severe chest pain starting 1 hour prior to arrival. Patient was evaluated in the emergency department on 11/09 with complaints of chest pain. At that time, she had an elevated troponin at 6. The patient signed out AGAINST MEDICAL ADVICE because she did not have early childhood director. She does have significant cardiac risk factors including diabetes, hypertension, hyperlipidemia and a strong family history. She also smokes. Her troponin is now 0.6, which is improved from her troponin from yesterday. I believe she likely did suffer from a NSTEMI. Her EKG appears unchanged. She was started on Lovenox therapy in the emergency department in addition to nitroglycerin, beta vijay, morphine and oxygen. The patient will likely need further cardiac workup. She agreed to stay in the hospital overnight. Of note, the patient will also need further evaluation of possibly an atypical pneumonia, hyperglycemia and acute renal insufficiency Impression Primary Impression: Non-STEMI (non-ST elevated myocardial infarction) Departure Information Referrals No Doctor, Assigned (PCP) Patient Instructions [facility]
[2016-11-10 16:26] LABS: BASO % 0.1 %; BASO ABS # 0.02 K/uL (0-0.2); COMPLETE YES; HEMATOCRIT 38.2 % (37-47); IG% 0.6 %; LYMPH % 6.8 %; MEAN CORPUSCULAR HEMOGLOBIN 27.7 pg (25-34); MEAN CORPUSCULAR HGB CONC 32.2 g/dl (32-36); MONO % 1.9 %; NEUT % 90.6 %; PLATELET COUNT 459 K/uL (130-400); RED BLOOD COUNT 4.44 M/uL (4.2-5.4); WHITE BLOOD COUNT 22.06 K/uL (4.8-10.8)
[2016-11-10] MEDS: MoRPHine SULFATE 4 MG/ML 1 ML CARP IV PRN ×2 (16:35→17:41)
[2016-11-10 16:43] LABS: PARTIAL THROMBOPLASTIN RATIO 0.9; PROTHROMBIN TIME (PATIENT) 10.8 SECONDS (9.0-12.0)
[2016-11-10 16:52] LABS: BUN/CREATININE RATIO 14.8 (10-20); CALCIUM 8.9 mg/dl (8.5-10.1); CREATININE 1.3 mg/dl (0.60-1.20)
[2016-11-10 16:53] LABS: POTASSIUM 4.2 mmol/L (3.5-5.1)
[2016-11-10 16:59] LABS: ALB/GLOB RATIO 1.1 (0.9-2); CKMB/CK RATIO 5.1 (0-3.0)
--- NOTE | 2016-11-10 17:06 | DIAGNOSTIC IMAGING REPORT ---
CHEST ONE VIEW PORTABLE CLINICAL HISTORY: L sided CP dyspnea COMPARISON STUDY: 12/28/2014 FINDINGS: Patchy basilar parenchymal infiltrates seen patient's recent CT the chest. There are no consolidative infiltrates. Pulmonary procedure clear. Subtle miliary changes present, also described IMPRESSION: Patchy basilar parenchymal infiltrates similar to the patient's CT examination dated 11/09/2016 The above report was generated using voice recognition software. It may contain grammatical, syntax or spelling errors. Electronically signed by: Dale Art M.D. 11/10/2016 5:04 PM Dictated Date/Time: 11/10/2016 5:03 PM
[2016-11-10 17:10] LABS: BETA-HYDROXYBUTYRATE 2.46 mg/dL (0.2-2.81)
[2016-11-10] MEDS ORDERED: SODIUM CHLORIDE 0.9% 1000ML 1,000 ML IV ONE (17:15)
[2016-11-10] MEDS ORDERED: ENOXAPARIN 1 MG/KG SQ STA (17:17)
[2016-11-10] MEDS ORDERED: ENOXAPARIN 100 MG/1ML SYR SQ STA (17:23)
[2016-11-10] MEDS ORDERED: SODIUM CHLORIDE 0.9% 1000ML 1,000 ML IV SCH (18:38)
[2016-11-10] MEDS ORDERED: ONDANSETRON INJ 2 MG/ML 2 ML VIAL IV PRN ×2 (18:45→22:45)
[2016-11-10] MEDS ORDERED: ACETAMINOPHEN 325 MG TAB PO PRN (18:45)
[2016-11-10] MEDS ORDERED: LEVALBUTEROL/IPRATROPIUM NEB INH SCH (19:00)
[2016-11-10] MEDS ORDERED: INSULIN ASPART 100 UNITS/ML 3 ML PEN SC SCH (19:00)
[2016-11-10] MEDS ORDERED: LEVOFLOXACIN CONSULT ACTIVE PRN (19:00)
[2016-11-10] MEDS ORDERED: HHS GOAL RANGE 250-350 mg/dl ONE (19:00)
[2016-11-10] MEDS ORDERED: MODERATE STRESS LEVEL ONE (19:00)
[2016-11-10] MEDS ORDERED: PHARMACY GLYCEMIC MGMT CONSULT PRN (19:05)
[2016-11-10] MEDS ORDERED: NITROGLYCERIN 0.4 MG SL PER TAB CHARGE ONE ×2 (19:15→19:48)
--- NOTE | 2016-11-10 19:18 | Pharmacy Progress Note ---
Glycemic Control Intl Consult Date of Service Nov 10, 2016. Scope Glycemic Pharmacist consulted by Dr More on 11/10/16 for glycemic control and to write orders per [facility] inpatient glycemic control protocol Objective Weight (Kilograms): 95.100 Accuchecks BSG (last 24hrs): Test 11/10/16 16:15 Random Glucose 386 mg/dl (70-99) Laboratory Data (last 24hrs) Test 11/10/16 16:15 Anion Gap 13.0 mmol/L BUN/Creatinine Ratio 14.8 Blood Urea Nitrogen 19 mg/dl Creatinine 1.30 mg/dl Potassium Level 4.2 mmol/L Sodium Level 135 mmol/L White Blood Count 22.06 K/uL Red Blood Count 4.44 M/uL Hemoglobin 12.3 g/dL Hematocrit 38.2 % Mean Corpuscular Volume 86.0 fL Mean Corpuscular Hemoglobin 27.7 pg Mean Corpuscular Hemoglobin Concent 32.2 g/dl Platelet Count 459 K/uL Mean Platelet Volume 10.0 fL Neutrophils (%) (Auto) 90.6 % Lymphocytes (%) (Auto) 6.8 % Monocytes (%) (Auto) 1.9 % Eosinophils (%) (Auto) 0.0 % Basophils (%) (Auto) 0.1 % Neutrophils # (Auto) 20.00 K/uL Lymphocytes # (Auto) 1.50 K/uL Monocytes # (Auto) 0.41 K/uL Eosinophils # (Auto) 0.00 K/uL Basophils # (Auto) 0.02 K/uL HbA1c Item Value Date Time Hemoglobin A1c 11.1 % H 05/07/15 0728 Recent Pertinent Medications Outpatient Anti-diabetic Regimen: * Metformin ER 1 g PO BIDM * A1c not current, most recent from 04/2015 Risk Factors for Insulin Resistance: * Chest pain/recent NSTEMI * Recent prednisone taper as outpatient * Infection * Diet Assessment & Plan ASSESSMENT: * 36 yo F admitted with BSGs >350 mg/dL and chest pain (worsening over past 48 hours) * Patient is known to glycemic service from prior admission where her A1c in April 2015 was 11.1% * Of note, patient recently treated with Doxy PO and oral Prednisone as outpatient for pneumonia * Given severe hyperglycemia, has opted for insulin drip which I agree with * I am assuming she has a combination of steroid-induced hyperglycemia as well as baseline insulin resistance given A1c a year ago * Plan will be to initiate insulin drip per moderate stress protocol and attempt transition in the AM if BSGs allow * ADA & AACE recommend a goal blood sugar range 140-180 mg/dl for the majority of critically ill & non-critically ill patients. However, more stringent targets may be selected in individual cases. PLAN FOR INPATIENT GLYCEMIC CONTROL: * Starting IV insulin infusion per moderate stress protocol * Goal Range 140 - 180 mg/dl (tightened goal range to allow possible transition in the AM) * Hold outpatient metformin ER * Please note that the plan above was derived based on current level of insulin resistance and hospital stress. These recommendations are appropriate for inpatient admission only. Plan of care upon discharge will need to be reassessed to avoid potential outpatient hypo/hyperglycemia. Thank you.
[2016-11-10] MEDS ORDERED: INSULIN IV INFUSION PROTOCOL SCH (19:30)
--- NOTE | 2016-11-10 19:31 | History and Physical ---
History & Physical Date & Time of Service: Nov 10, 2016 at 19:22 Chief Complaint: Chest Pain Primary Care Physician: Irvin Iverson M.D. History of Present Illness Source: patient, clinic records, hospital records 36 year old female with history of DM, HTN, HLD, Smoking, and other problems noted below presenting with chest pain starting 2 days ago. Follow[address] with Dr. Iverson for Primary Care. About 5 days ago, patient presented to her PCP for productive cough and chest congestion. CXR showed possible left lower lobe pneumonia, and was given Doxycline and Prednisone taper. Her cough has been improving since then per patient. Patient presented to the ER last midnight for left sided chest pain, EKG showing non specific inferior lead t wave changes. Trop was 6. She declined admission and signed out AMA due to the fact that there was no one to take care of her child. She returns to the ER today with chest pain more on the lateral side. EKG still showing non specific inferior lead t wave changes. Trop 0.6. She was given Aspirin en route to the ER, started on Nitropaste, Metoprolol IV and Lovenox 100mg SC. On exam, patient was alert, oriented x 3, still reports left sided chest pain more on the lateral chest. Still has occasional productive cough but no active dyspnea, palpitations, dizziness. No other symptoms. Past Medical/Surgical History Medical Problems: (1) Asthma Status: Chronic (2) Benign hypertension Status: Chronic (3) Deep venous thrombosis Status: Resolved (4) Diabetes mellitus Status: Chronic (5) Dyslipidemia Status: Chronic (6) Kidney stone Status: Resolved Surgical Problems: (1) Cholecystectomy Status: Resolved Family History Diabetes mellitus FH: gallbladder disease FH: heart disease FH: lung disease Hypertension Kidney stones Social History Smoking Status: Current Every Day Smoker Smokeless Tobacco Use: No Alcohol Use: none Drug Use: none Marital Status: single Housing status: lives with family Occupational Status: unemployed Immunizations History of Influenza Vaccine: N/A History of Tetanus Vaccine?: Yes Tetanus Immunization Date: Aug 16, 2010 History of Pneumococcal: No History of Hepatitis B Vaccine: No Multi-Drug Resistant Organisms History of MDRO: No Allergies Coded Allergies: Lidocaine (Verified Allergy, Intermediate, HIVES, 11/09/16) Procaine (Verified Allergy, Intermediate, HIVES, 11/09/16) Penicillins (Verified Allergy, Mild, HAD NO PROBLEM WITH ZOSYN, 11/09/16) Delaplaine (Verified Allergy, Mild, HIVES, 11/09/16) Cephalexin (Verified Allergy, Unknown, ., 11/09/16) Egg (Verified Allergy, Unknown, `, 11/09/16) Tramadol (Verified Allergy, Unknown, SEIZURES, 11/09/16) Azithromycin (Verified Adverse Reaction, Mild, STOMACH PAINS, 11/09/16) Home Medications Scheduled Atorvastatin (Atorvastatin Calcium), 40 MG PO HS Doxycycline Hyclate (Vibramycin), 100 MG PO BID Esomeprazole Magnesium (Nexium), 40 MG PO BID Gabapentin (Neurontin), 400 MG PO TID Lisinopril (Lisinopril), 10 MG PO DAILY Medroxyprogesterone Acetate (C (Medroxyprogesterone Aceta), 1 DOSE INJ [id number] Metformin Hcl (Glucophage Ext Rel), 1,000 MG PO BID Scheduled PRN Albuterol Hfa (Ventolin Hfa), 2 PUFFS INH Q6H PRN for SOB/Wheezing Ibuprofen (Motrin), 600 MG PO Q6H PRN for Pain Review of Systems Constitutional- no fever; no weight loss Eyes- no acute visual changes ENT- no sinus drainage; no pharyngitis Pulmonary- (+) as noted above Cardiac-(+) as noted above GI- no nausea, no vomiting, no diarrhea, no melena, no hematochezia - no dysuria, no hematuria Musculoskeletal- no arthralgias, no myalgias Derm- no rashes, no new skin lesions, no changing skin lesions Hematologic- no unusual bruising, no unusual bleeding Lymphatics- no adenopathy Endocrine- no polyuria or polydipsia; no heat or cold intolerance Neuro- no headaches, no focal neurologic symptoms Psych- no anxiety, no depression Physical Exam Vital Signs Date Time Temp Pulse Resp B/P (MAP) Pulse Ox O2 Delivery O2 Flow Rate FiO2 11/10/16 17:24 88 18 116/65 99 Nasal Cannula 2.0 11/10/16 16:44 88 22 116/61 97 Nasal Cannula 2.0 11/10/16 16:35 103 138/95 11/10/16 16:30 103 11/10/16 16:09 99 Room Air 11/10/16 16:09 99 Room Air 11/10/16 16:09 37.7 95 20 138/95 99 Room Air General Appearance: WD/WN, no apparent distress Head: normocephalic, atraumatic Eyes: normal inspection, EOMI, sclerae normal ENT: normal ENT inspection, hearing grossly normal, pharynx normal Neck: supple, no adenopathy, thyroid normal, no JVD Respiratory/Chest: chest non-tender, lungs clear, normal breath sounds, no respiratory distress, no accessory muscle use Cardiovascular: regular rate, rhythm, no edema, no JVD, no murmur Abdomen/GI: normal bowel sounds, non tender, soft, no organomegaly Back: normal inspection, no CVA tenderness Extremities/Musculoskelatal: normal inspection, no calf tenderness, no pedal edema, normal range of motion Neurologic/Psych: 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 II-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 nml as tested, no motor/sensory deficits, alert, normal mood/affect, oriented x 3 Skin: normal color, warm/dry, no rash Lymphatic: no adenopathy Diagnostics Laboratory Results Results Past 24 Hours Test 11/10/16 16:15 11/10/16 18:46 Range/Units White Blood Count 22.06 4.8-10.8 K/uL Red Blood Count 4.44 4.2-5.4 M/uL Hemoglobin 12.3 12.0-16.0 g/dL Hematocrit 38.2 37-47 % Mean Corpuscular Volume 86.0 80-100 fL Mean Corpuscular Hemoglobin 27.7 25-34 pg Mean Corpuscular Hemoglobin Concent 32.2 32-36 g/dl Platelet Count 459 130-400 K/uL Mean Platelet Volume 10.0 7.4-10.4 fL Neutrophils (%) (Auto) 90.6 % Lymphocytes (%) (Auto) 6.8 % Monocytes (%) (Auto) 1.9 % Eosinophils (%) (Auto) 0.0 % Basophils (%) (Auto) 0.1 % Neutrophils # (Auto) 20.00 1.4-6.5 K/uL Lymphocytes # (Auto) 1.50 1.2-3.4 K/uL Monocytes # (Auto) 0.41 0.11-0.59 K/uL Eosinophils # (Auto) 0.00 0-0.5 K/uL Basophils # (Auto) 0.02 0-0.2 K/uL RDW Standard Deviation 52.3 36.4-46.3 fL RDW Coefficient of Variation 16.5 11.5-14.5 % Immature Granulocyte % (Auto) 0.6 % Immature Granulocyte # (Auto) 0.13 0.00-0.02 K/uL Prothrombin Time 10.8 9.0-12.0 SECONDS Prothromb Time International Ratio 1.0 0.9-1.1 Activated Partial Thromboplast Time 24.3 21.0-31.0 SECONDS Partial Thromboplastin Ratio 0.9 Sodium Level 135 136-145 mmol/L Potassium Level 4.2 3.5-5.1 mmol/L Chloride Level 104 98-107 mmol/L Carbon Dioxide Level 18 21-32 mmol/L Anion Gap 13.0 3-11 mmol/L Blood Urea Nitrogen 19 7-18 mg/dl Creatinine 1.30 0.60-1.20 mg/dl Est Creatinine Clear Calc Drug Dose 65.7 ml/min Estimated GFR () 60.3 Estimated GFR (Non- 52.0 BUN/Creatinine Ratio 14.8 10-20 Random Glucose 386 70-99 mg/dl Osmolality 302 280-300 mOsm/kg Calcium Level 8.9 8.5-10.1 mg/dl Magnesium Level 2.0 1.8-2.4 mg/dl Total Bilirubin 0.2 0.2-1 mg/dl Aspartate Amino Transf (AST/SGOT) 9 15-37 U/L Alanine Aminotransferase (ALT/SGPT) 29 12-78 U/L Alkaline Phosphatase 76 45-117 U/L Total Creatine Kinase 194 26-192 U/L Creatine Kinase MB 9.9 0.5-3.6 ng/ml Creatine Kinase MB Ratio 5.1 0-3.0 Troponin I 0.692 0-0.045 ng/ml Total Protein 7.1 6.4-8.2 gm/dl Albumin 3.7 3.4-5.0 gm/dl Globulin 3.4 2.5-4.0 gm/dl Albumin/Globulin Ratio 1.1 0.9-2 Beta-Hydroxybutyric Acid 2.46 0.2-2.81 mg/dL Diagnostic Radiology CHEST ONE VIEW PORTABLE CLINICAL HISTORY: L sided CP dyspnea COMPARISON STUDY: 12/28/2014 FINDINGS: Patchy basilar parenchymal infiltrates seen patient's recent CT the chest. There are no consolidative infiltrates. Pulmonary procedure clear. Subtle miliary changes present, also described IMPRESSION: Patchy basilar parenchymal infiltrates similar to the patient's CT examination dated 11/09/2016 EKG per H&P Impression Assessment and Plan 36 year old female with history of DM, HTN, HLD, Smoking, and other problems noted below presenting with chest pain starting 2 days ago. POSSIBLE NSTEMI - trend cardiac markers echo - received Lovenox 100mg SC at around 1800 heparin ordered to start at 6pm tomorrow BILATERAL PNEUMONIA R/O TB - CT chest: 11/09/16 miliary nodules - check sputum culture AFB x 3 - Levaquin IV Nebs Pulmonary Consult HYPERGLYCEMIA, POSSIBLE HHS DM 2 - serum osmolality ordered - Insulin drip for now PRP q4h Pharmacy consulted ACUTE RENAL FAILURE - IV fluids HTN - hold Lisinopril for elevated crea SMOKER - needs counselling on cessation HISTORY OF OPIOID DEPENDENCE - will be cautious on narcotics DVT prophylaxis - Lovenox--> heparin Full Code per patient Disposition - pending VTE Prophylaxis VTE Risk Assessment Done? Y/N: Yes Risk Level: Moderate Given or contraindicated: Enoxaparin (Lovenox)SQ, Unfractionated heparin SQ
[2016-11-10] MEDS: LEVALBUTEROL 1.25MG/0.5ML NEB INH SCH ×2 (19:58→20:01)
[2016-11-10] MEDS: IPRATROPIUM BROMIDE NEB SOLN 0.02% 2.5 ML VIAL INH SCH ×2 (19:58→20:00)
[2016-11-10] MEDS ORDERED: LEVOFLOXACIN / D5W 750 MG in PREMIXED IN D5W 150 ML IV SCH (20:00)
--- NOTE | 2016-11-10 20:27 | Cardiology Consultation ---
Cardiology Consultation Requesting Physician: Dr. Suleiman More Attending Social Work Coordinator: Dr. Tobin Gil History of Present Illness Patient is a 36 year old female presents to the emergency department with left- sided chest discomfort. I was contacted by the hospitalists for evaluation. The patient describes a severe sharp and stabbing chest pain which began approximately at 1 PM. She was recently evaluated in the emergency department on 11/09 due to chest discomfort as well. Recently diagnosed with pneumonia by her PCP on May 08. During her ER visit on 11/09 she was found to have a troponin of approximately 6. Inpatient admission was recommended however patient left AGAINST MEDICAL ADVICE due to childcare concerns. When her chest discomfort recurred earlier today she came back to the emergency department. She was treated with sublingual nitroglycerin, Nitropaste, subcutaneous Lovenox , intravenous Lopressor, and aspirin. Chest discomfort improved initially from 9-7 and then down to 4/10 with sublingual nitroglycerin. Her pain is currently 4/10. Her EKG demonstrates nonspecific ST abnormality. There is no ST elevation. CT angiogram of the chest was performed 11/09 negative for dissection. There is heavy coronary calcification noted. Patient carries a history of valvular disease, possible bicuspid valve with moderate aortic insufficiency. States she was evaluated with in the last year by cardiology, however, I do not have records of that consultation. Currently she is mildly diaphoretic with continued chest discomfort. Past Medical/Surgical History Problem List: Medical Problems: (1) Asthma (2) Benign hypertension (3) Chest pain (4) Deep venous thrombosis (5) Diabetes mellitus (6) Dyslipidemia (7) Kidney stone (8) Sepsis Surgical Problems: (1) Cholecystectomy Family History Diabetes mellitus FH: gallbladder disease FH: heart disease FH: lung disease Hypertension Kidney stones Mother with myocardial infarction at age 38. Social History Smoking Status: Current Every Day Smoker Smokeless Tobacco Use: No Alcohol Use: none Drug Use: none Marital Status: single Housing Status: lives with family Occupation: unemployed Review Of Systems General: The patient denies weight change, night sweats, fever, chills. Head: The patient denies headache and prior head trauma. Cardiovascular: The patient denies chest pain or chest discomfort, dyspnea on exertion, palpitations, PND, orthopnea, edema, spontaneous shortness of breath, syncope and near syncope. Pulmonary: The patient denies cough, wheeze, pleurisy, hemoptysis, sputum, and excessive snoring. Gastrointestinal: The patient denies nausea, vomiting, diarrhea, constipation, bloating, hematemesis, hematochezia, and abdominal pain. Skin: The patient denies diaphoresis and rash. Musculoskeletal: The patient denies joint pain, joint swelling, myalgia, back pain, neck pain and prior injuries. Neurological: The patient denies prior stroke and seizures Allergies Coded Allergies: Lidocaine (Verified Allergy, Intermediate, HIVES, 11/09/16) Procaine (Verified Allergy, Intermediate, HIVES, 11/09/16) Penicillins (Verified Allergy, Mild, HAD NO PROBLEM WITH ZOSYN, 11/09/16) [place] (Verified Allergy, Mild, HIVES, 11/09/16) Cephalexin (Verified Allergy, Unknown, ., 11/09/16) Egg (Verified Allergy, Unknown, `, 11/09/16) Tramadol (Verified Allergy, Unknown, SEIZURES, 11/09/16) Azithromycin (Verified Adverse Reaction, Mild, STOMACH PAINS, 11/09/16) Medications Reported Home Medications Medications Dose Route/Sig Max Daily Dose Days Date Category Dose Instructions Vibramycin (Doxycycline Hyclate) 100 Mg Cap 100 Mg PO BID 11/09/16 Reported Ventolin Hfa (Albuterol) 200 Puffs/07464 Mcg Aers 2 Puffs INH Q6H PRN 11/09/16 Reported Medroxyprogesterone Aceta (Medroxyprogesterone Acetate (C) 150 Mg/Ml Inj 1 Dose INJ [id number] 10/09/16 Reported Motrin (Ibuprofen) 600 Mg Tab 600 Mg PO Q6H PRN 05/05/15 Reported TAKE WITH FOOD Glucophage Ext Rel (Metformin Hcl) 1,000 Mg Tab 1,000 Mg PO BID 03/17/15 Reported Neurontin (Gabapentin) 400 Mg Cap 400 Mg PO TID 12/04/14 Reported Nexium (Esomeprazole Magnesium) 40 Mg Capcr 40 Mg PO BID 06/01/14 Reported Atorvastatin Calcium (Atorvastatin) 40 Mg Tab 40 Mg PO HS 02/20/14 Reported Lisinopril 10 Mg Tab 10 Mg PO DAILY 02/20/14 Reported Physical Exam Vital Signs (Last 8hrs): Last 8 Hrs Date Time Temp Pulse Resp B/P (MAP) Pulse Ox O2 Delivery O2 Flow Rate FiO2 11/10/16 19:32 37.7 80 20 108/75 96 11/10/16 19:10 80 20 108/75 96 Nasal Cannula 2.0 11/10/16 17:24 88 18 116/65 99 Nasal Cannula 2.0 11/10/16 16:44 88 22 116/61 97 Nasal Cannula 2.0 11/10/16 16:35 103 138/95 11/10/16 16:30 103 11/10/16 16:09 99 Room Air 11/10/16 16:09 99 Room Air 11/10/16 16:09 37.7 95 20 138/95 99 Room Air General Appearance: Alert and Oriented x3. Mild distress, mild diaphoresis. Head: Normocephalic Atraumatic. Eyes: PERRLA, EOMI, conjunctiva and sclera clear Neck: Supple. No carotid bruits noted. No JVD. No HJD. Respiratory: Breath sounds clear to auscultation bilaterally. No w/r/r. Cardiovascular: Reg rate and rhythm. S1 and S2 noted. 2/6 mid peaking systolic ejection murmur heard best at the right second intercostal space. No diastolic murmur appreciated. No rubs, gallops. PMI non displace. Abdomen: Normal bowel sounds, soft nontender. no abdominal bruits. Extremities: No edema, no clubbing or cyanosis. distal pulses 2/4 bilaterally. Neuro: No focal deficits. Psychiatric: Normal affect. Data Last 24 Hours Test 11/10/16 16:15 11/10/16 19:17 11/10/16 19:21 11/10/16 19:57 White Blood Count 22.06 K/uL Red Blood Count 4.44 M/uL Hemoglobin 12.3 g/dL Hematocrit 38.2 % Mean Corpuscular Volume 86.0 fL Mean Corpuscular Hemoglobin 27.7 pg Mean Corpuscular Hemoglobin Concent 32.2 g/dl Platelet Count 459 K/uL Mean Platelet Volume 10.0 fL Neutrophils (%) (Auto) 90.6 % Lymphocytes (%) (Auto) 6.8 % Monocytes (%) (Auto) 1.9 % Eosinophils (%) (Auto) 0.0 % Basophils (%) (Auto) 0.1 % Neutrophils # (Auto) 20.00 K/uL Lymphocytes # (Auto) 1.50 K/uL Monocytes # (Auto) 0.41 K/uL Eosinophils # (Auto) 0.00 K/uL Basophils # (Auto) 0.02 K/uL RDW Standard Deviation 52.3 fL RDW Coefficient of Variation 16.5 % Immature Granulocyte % (Auto) 0.6 % Immature Granulocyte # (Auto) 0.13 K/uL Prothrombin Time 10.8 SECONDS Prothromb Time International Ratio 1.0 Activated Partial Thromboplast Time 24.3 SECONDS Partial Thromboplastin Ratio 0.9 D-Dimer 230 ug/L FEU Sodium Level 135 mmol/L Potassium Level 4.2 mmol/L Chloride Level 104 mmol/L Carbon Dioxide Level 18 mmol/L Anion Gap 13.0 mmol/L Blood Urea Nitrogen 19 mg/dl Creatinine 1.30 mg/dl Est Creatinine Clear Calc Drug Dose 65.7 ml/min Estimated GFR () 60.3 Estimated GFR (Non- 52.0 BUN/Creatinine Ratio 14.8 Random Glucose 386 mg/dl Osmolality 302 mOsm/kg Calcium Level 8.9 mg/dl Magnesium Level 2.0 mg/dl Total Bilirubin 0.2 mg/dl Aspartate Amino Transf (AST/SGOT) 9 U/L Alanine Aminotransferase (ALT/SGPT) 29 U/L Alkaline Phosphatase 76 U/L Total Creatine Kinase 194 U/L Creatine Kinase MB 9.9 ng/ml Creatine Kinase MB Ratio 5.1 Troponin I 0.692 ng/ml Total Protein 7.1 gm/dl Albumin 3.7 gm/dl Globulin 3.4 gm/dl Albumin/Globulin Ratio 1.1 Beta-Hydroxybutyric Acid 2.46 mg/dL Bedside Glucose 271 mg/dl Imaging: Chest x-ray demonstrates bibasilar opacities concerning for inflammatory process. CT and examined the chest negative for dissection demonstrating coronary calcifications and a miliary pattern. EKG: Sinus rhythm, diffuse nonspecific ST changes. Telemetry reviewed: Sinus rhythm Assessment & Plan Final Impression: 1. 36-year-old female presents with unstable NSTEMI and ongoing chest discomfort despite intravenous Lopressor, topical nitrates, sublabel nitroglycerin. She is hemodynamically stable. 2. Systolic ejection murmur with probable bicuspid aortic valve per resting 2- D transthoracic echo performed in 2012. 3. Dyslipidemia 4. Active tobacco abuse 5. Family history of premature atherosclerotic coronary artery disease - mother age 36 6. DM-2 requiring insulin 7. Chronically elevated WBC's Plan/Recommendations: Recommend emergent cardiac catheterization with unstable NSTEMI and ongoing chest discomfort despite medical therapy. The risks, benefits, and alternatives to the procedure were discussed with the patient. She is agreeable. I also discussed the case with interventional cardiology who is agreeable to perform procedure at this time. Patient has received aspirin, Lovenox, beta vijay, and nitrates. I will titrate atorvastatin to 80 mg daily. A repeat 2-D transthoracic echo will be performed in the a.m. to assess severity of aortic valve disease. Further recommendations pending results of catheterization. 45 minutes critical care time was spent during bedside evaluation, formulating plan of care, contacting consultants and discussing plan of care, as well as reviewing chart, lab studies, and imaging. Tobin Gil DO, FACC
[2016-11-10] MEDS ORDERED: MIDAZOLAM HCL 1 MG/ML 2ML VIAL ONE ×2 (20:28→21:14)
[2016-11-10] MEDS ORDERED: HEPARIN SOD (PORCINE) 1000 UNIT/ML 10 ML VIAL ONE ×2 (20:28→21:32)
[2016-11-10] MEDS ORDERED: FENTANYL CITRATE INJ 50 MCG/1 ML 2 ML VIAL ONE ×2 (20:28→21:14)
[2016-11-10] MEDS ORDERED: NiCARDipine HCL INJ 2.5 MG/ML 10 ML AMP ONE (20:28)
[2016-11-10] MEDS ORDERED: NITROGLYCERIN/D5W 100MCG/ML 20ML SYR ONE (20:30)
[2016-11-10 20:40] LABS: CKMB/CK RATIO 5.5 (0-3.0)
--- NOTE | 2016-11-10 20:44 | Procedure Note ---
Pre-Mod Sedation Assessment General Date of Moderate Sedation: Nov 10, 2016. Vital Signs: Vital Signs Past 12 Hours Date Time Temp Pulse Resp B/P (MAP) Pulse Ox O2 Delivery O2 Flow Rate FiO2 11/10/16 19:32 37.7 80 20 108/75 96 11/10/16 19:10 80 20 108/75 96 Nasal Cannula 2.0 11/10/16 17:24 88 18 116/65 99 Nasal Cannula 2.0 11/10/16 16:44 88 22 116/61 97 Nasal Cannula 2.0 11/10/16 16:35 103 138/95 11/10/16 16:30 103 11/10/16 16:09 99 Room Air 11/10/16 16:09 99 Room Air 11/10/16 16:09 37.7 95 20 138/95 99 Room Air Review Cardiovascular: regular rate, rhythm, no edema Abdomen: normal bowel sounds, non tender Lungs: chest non-tender, lungs clear Airway Class: II Pre-Sedation Airway Assessment Oral Cavity: WNL Able to Visualize Vocal Cords: No Short Thick Neck: Yes Hx of Sleep Apnea: No Smoking Status: Current Every Day Smoker Mallampati Classification: Class III ASA Classification: Class III Procedure Planning Contraindications-for Mod Sed: None Yes Notes The planned sedation has been discussed with the patient and consent obtained. I have identified the patient, determined the appropriateness of sedation and have assessed the patient immediately prior to the procedure. All medicine(s) and interventions are by my order.
[2016-11-10] MEDS ORDERED: ATORVASTATIN 40 MG TAB PO SCH (21:00)
[2016-11-10] MEDS ORDERED: NITROGLYCERIN OINT 2% 1GM PACKET EXT SCH (22:00)
--- NOTE | 2016-11-10 22:11 | Procedure Note ---
Post-Mod Sedation Assessment General Date of Moderate Sedation Nov 10, 2016. Vital Signs: Vital Signs Past 12 Hours Date Time Temp Pulse Resp B/P (MAP) Pulse Ox O2 Delivery O2 Flow Rate FiO2 11/10/16 19:32 37.7 80 20 108/75 96 11/10/16 19:10 80 20 108/75 96 Nasal Cannula 2.0 11/10/16 17:24 88 18 116/65 99 Nasal Cannula 2.0 11/10/16 16:44 88 22 116/61 97 Nasal Cannula 2.0 11/10/16 16:35 103 138/95 11/10/16 16:30 103 11/10/16 16:09 99 Room Air 11/10/16 16:09 99 Room Air 11/10/16 16:09 37.7 95 20 138/95 99 Room Air Review - Discharge Criteria Vital Signs Stable: Yes Alert/Oriented/Conversant: Yes Returned to Baseline Mental St: Yes Nausea Absent/Minimal: Yes Pain/Discomfort/Absent/Minimal: Yes Normal/Baseline Respirations: Yes Active Bleeding?: No Pt Received D/C Instructions: N/A Prescriptions Given: None Specific Proced. D/C Criteria Distal Pulses Present (Cardiac: Yes Groin site assessed-Card Cath: N/A Voided Prior To Discharge: N/A Discharged Patients Adult Escort/Transportation: Yes
[2016-11-10] MEDS ORDERED: CLOPIDOGREL BISULFATE 300 MG TAB PO ONE (22:13)
--- NOTE | 2016-11-10 22:32 | Cardiac Catheterization ---
Procedure Note Procedure Date Nov 10, 2016. Pre-Procedure Diagnosis Non STEMI AUC Score 8 Post-Procedure Diagnosis Severe CAD, Successful PCI, Normal Intracardiac Pressures Procedure(s) Performed Coronary Angiography, Left Heart Cath, Drug Eluting Stent Government Professor Satnam Bulb Grower(s) Fang Estimated Blood Loss 20 Medication(s) Clopidogrel, Fentanyl, Heparin, Nicardipine, Nitroglycerin, Versed Summary of Findings Indication: High Risk NSTEMI Access: 6Fr Slender Right Radial Artery Catheters: Winkelman, JR4, Pigtail; EBU 3.5 guide Findings: LM - Angiographically normal LAD - Large caliber vessel, 40-50% eccentric plaque just before take-off of 1st diagonal, mid and distal segments with luminal irregularities as wraps around apex. Small 1st diagonal with 50% proximal stenosis. Circumflex - Moderate caliber vessel, luminal irregularities proximally, sequential 95%, 90% lesions in distal circumflex into L-PLB. Ramus - 80-90% mid segment stenosis RCA - Dominant, luminal irregularities, 20% mid R-PDA disease LVEDP - 14 Aortic valve gradient 8 -- PCI -- Antithrombotic therapy: Heparini Procedure: LM cannulated with EBU 3.5 guide BMW wire passed across lesion into distal circumflex/L-PLB Circumflex lesions predilated with 2.0 compliant balloon Dilated lesion stented with 2.25 x 30 Resolute distally overlapped proximally with 2.5 x 18 Resolute Stent post-dilated with 2.5 noncompliant balloon IC vasodilators administered for spasm BMW wire removed from circumflex and placed distally in Ramus Mid Ramus stenosis dilated with 2.0 compliant balloon Dilated lesion stented with 2.25 x 22 Resolute ROJAS, post-dilated with stent balloon. Post procedure GARFIELD 3 flow throughout, stents well expanded with minimal residual stenosis and no apparent cardiac complications. Arterial Closure: TR Band Summary: 1. Severe 2 vessel coronary artery disease - Sequential 95%, 90% distal circumflex lesions - 80-90% mid Ramus 2. Normal intracardiac filling pressure. No significant Aortic valve gradient. 3. Successful PCI of distal circumflex with 2 drug-eluting stents (2.5 x 18, 2.25 x 30 Resolute) 4. Successful PCI of Ramus with 1 drug-eluting stent (2.25 x 18 Resolute) Recommendations: To PCU for continued monitoring Loaded with Clopidogrel 600 mg Continue dual-antiplatelet therapy for at least 1 year Continue statin, ASCVD risk factor modification per Dr. Gil Smoking cessation. Consult cardiac Rehab Hemodynamics Rest Ao: 96/65/80 Final Ao: 105/71/86 LV: 118/14 Recommendations PCI without planned CABG Specimens None Radiation Exposure (mGy) 5340 Contrast (mls) 235 Visi Fluids (cc crystalloids) 192 Drains None Anesthesia Moderate (20:48 -- 22:09) Procedural Complication(s) None Disposition PCU ACC Data Cardiac Status Clinical evaluation leading to the procedure CAD Presntation: Non STEMI Anginal Classification: CCS IV Heart Failure: No, NYHA Class: CCS I Cardiogenic Shock w/in 24Hrs: No Cardiac Arrest w/in 24Hrs: No Imaging studies past 6 months: No Stress studies past 6 months: No Coronary Anatomy Dominant: Right Left Main (% Stenosis): Normal LAD (% Stenosis): Proximal (40-50) D1 (% Stenosis): Proximal (50) Circumflex (% Stenosis): Distal (95) L PL1 (% Stenosis): Proximal (90) RCA (% Stenosis): Normal Ramus (% Stenosis): Mid (80) Diagnostic Physician's Name: Liu Hay MD Status: Urgent Closure Device Percutaneous Entry Location: Radial Closure Device: Radial Band Recommendations: PCI without planned CABG PCI Indication: PCI for high risk Non-STEMI Lesion Segment Name: distal circumflex Culprit Artery: Yes Stenosis Prior to Rx (%): 95, 90 Chronic Total Occlusion: No IVUS: No FFR: No Ratio: less than or equal to 0.75% Pre-Procedure GARFIELD Flow: 3 Previously Treated Lesion: No Lesion Complexity: Non-High/Non-C Lesion Length (mm): 35 Thrombus Present: No Bifurcation Lesion: No Guidewire Across Lesion: Yes Guidewire: Stenosis Post-Procedure (%): 0 Post-Procedure GARFIELD Flow: 3 Device(s) Deployed: Yes Type of Device(s): ROJAS x3 Intraprocedure Events Significant Dissection: No Perforation: No
[2016-11-10 22:53] VITALS: BP 129/74; PULSE 86; TEMP 36.8; O2SAT 99; Ht 162.6 cm; Wt 93.9 kg
[2016-11-10] MEDS: SODIUM CHLORIDE 0.9% 1000ML 1,000 ML IV SCH (23:13)
[2016-11-10] MEDS: GABAPENTIN 400 MG CAP PO SCH (23:13)
[2016-11-10] MEDS: PANTOprazole SOD 40 MG TAB PO SCH (23:14)
[2016-11-10 23:15] VITALS: BP 114/70; PULSE 73; TEMP 36.5; O2SAT 98
[2016-11-10 23:30] VITALS: BP 115/75; PULSE 74; TEMP 36.6; O2SAT 99
[2016-11-10 23:42] VITALS: BP 118/64; PULSE 82; TEMP 36.6; O2SAT 98
[2016-11-10] MEDS ORDERED: DEXTROSE 50% 50 ML SYR IV PRN (23:45)
[2016-11-10] MEDS ORDERED: GLUCOSE 40% GEL 15 GM TUBE PO PRN (23:45)
[2016-11-10] MEDS ORDERED: GLUCOSE 10 TABS/TUBE PO PRN (23:45)
[2016-11-10] MEDS ORDERED: GLUCAGON FOR INJ 1 MG VIAL SQ PRN (23:45)
[2016-11-10] MEDS ORDERED: INSULIN ASPART 100 UNITS/ML 3 ML PEN SC STA (23:56)
[2016-11-10 23:59] LABS: BUN/CREATININE RATIO 20.3 (10-20); CALCIUM 8.3 mg/dl (8.5-10.1); CREATININE 0.88 mg/dl (0.60-1.20); POTASSIUM 4.1 mmol/L (3.5-5.1)
[2016-11-11] VITALS (10 sets, daily range): BP systolic 116–135; BP diastolic 67–84; PULSE 68–81; TEMP 36.6–36.9; O2SAT 96–99
[2016-11-11] MEDS ORDERED: INSULIN GLARGINE SOLOSTAR 100 UNITS/ML 3 ML PEN SC STA (00:24)
[2016-11-11] MEDS: LEVALBUTEROL 1.25MG/0.5ML NEB INH SCH ×3 (01:59→14:24)
[2016-11-11] MEDS: IPRATROPIUM BROMIDE NEB SOLN 0.02% 2.5 ML VIAL INH SCH ×3 (01:59→14:23)
[2016-11-11] MEDS ORDERED: INSULIN ASPART 100 UNITS/ML 3 ML PEN SC SCH (04:00)
[2016-11-11 06:12] LABS: HEMATOCRIT 36.9 % (37-47); MEAN CELL VOLUME 85.4 fL (80-100); MEAN CORPUSCULAR HEMOGLOBIN 26.2 pg (25-34); MEAN CORPUSCULAR HGB CONC 30.6 g/dl (32-36); MEAN PLATELET VOLUME 9.7 fL (7.4-10.4); PLATELET COUNT 426 K/uL (130-400); RED BLOOD COUNT 4.32 M/uL (4.2-5.4); WHITE BLOOD COUNT 20.58 K/uL (4.8-10.8)
[2016-11-11] MEDS: SODIUM CHLORIDE 0.9% 1000ML 1,000 ML IV SCH (06:21)
[2016-11-11 06:40] LABS: BUN/CREATININE RATIO 20.1 (10-20); CALCIUM 8.4 mg/dl (8.5-10.1); CREATININE 0.83 mg/dl (0.60-1.20); POTASSIUM 3.5 mmol/L (3.5-5.1)
[2016-11-11 06:45] LABS: CKMB/CK RATIO 6.9 (0-3.0)
[2016-11-11] MEDS ORDERED: PERFLUTREN LIPID MICROSPHERE (DEFINITY) IV ONE (07:03)
[2016-11-11] MEDS: INSULIN ASPART 100 UNITS/ML 3 ML PEN SC SCH ×2 (07:56→11:44)
[2016-11-11] MEDS: GABAPENTIN 400 MG CAP PO SCH ×2 (08:00→13:59)
[2016-11-11] MEDS: PANTOprazole SOD 40 MG TAB PO SCH (08:01)
[2016-11-11 08:27] LABS: BASO % 0.1 %; BASO ABS # 0.03 K/uL (0-0.2); COMPLETE YES; EOS % 0.6 %; IG% 0.5 %; LYMPH % 28.5 %; LYMPH ABS # 5.87 K/uL (1.2-3.4); MONO % 6.7 %; NEUT % 63.6 %
[2016-11-11] MEDS ORDERED: ASPIRIN 81 MG ECTAB PO SCH (09:00)
[2016-11-11] MEDS ORDERED: CLOPIDOGREL BISULFATE 75 MG TAB PO SCH ×2 (09:00→14:30)
[2016-11-11] MEDS ORDERED: METOPROLOL SUCC 25MG EXT REL TAB PO ONE (09:33)
[2016-11-11] MEDS ORDERED: LISINOPRIL 5 MG TAB PO ONE (09:49)
--- NOTE | 2016-11-11 09:49 | Cardiology Follow-Up ---
Subjective General Date of Service: Nov 11, 2016. Pt evaluation today including: conversation w/ patient, physical exam, chart review, lab review, review of studies, review of inpatient medication list History of Present Illness The patient is a 36 year old female seen in follow-up. Emergent cardiac catheterization performed last evening demonstrated two-vessel coronary disease with severe mid ramus stenosis and severe circumflex stenosis. Patient received drug-eluting stents to both vessels. Chest discomfort has resolved. This morning she is feeling well. Notes mild nonproductive cough. She is anxious for discharge due to childcare issues. Mild right wrist discomfort noted. Offers no other complaints this time. Allergies Coded Allergies: Lidocaine (Verified Allergy, Intermediate, HIVES, 11/09/16) Procaine (Verified Allergy, Intermediate, HIVES, 11/09/16) Penicillins (Verified Allergy, Mild, HAD NO PROBLEM WITH ZOSYN, 11/09/16) [place] (Verified Allergy, Mild, HIVES, 11/09/16) Cephalexin (Verified Allergy, Unknown, ., 11/09/16) Egg (Verified Allergy, Unknown, `, 11/09/16) Tramadol (Verified Allergy, Unknown, SEIZURES, 11/09/16) Azithromycin (Verified Adverse Reaction, Mild, STOMACH PAINS, 11/09/16) Social History Smoking Status: Current Every Day Smoker Hx Tobacco Use In Past Year?: Yes (1/2 PPD) Hx Alcohol Use - Type And Amou: No Hx Substance Use - Type And Am: No Problem List Medical Problems: (1) Abdominal pain Status: Acute (2) Abscess or cellulitis of scalp Status: Acute (3) Asthma Status: Chronic (4) Benign hypertension Status: Chronic (5) Colitis Status: Acute (6) Diabetes mellitus Status: Chronic (7) Dyslipidemia Status: Chronic (8) Infectious colitis Status: Acute (9) Left groin pain Status: Acute (10) Non-STEMI (non-ST elevated myocardial infarction) Status: Acute (11) Non-STEMI (non-ST elevated myocardial infarction) Status: Acute (12) Right hand pain Status: Acute Review of Systems Respiratory: + cough, + dyspnea on exertion, No sputum, No wheezing, No shortness of breath, No dyspnea at rest, No hemoptysis Cardiac: No chest pain, No orthopnea, No PND, No edema, No claudication, No palpitations Physical Exam Vital Signs Last Vital Signs Documentation Date Time Temp Pulse Resp B/P (MAP) Pulse Ox O2 Delivery O2 Flow Rate FiO2 11/11/16 07:43 36.8 81 18 135/84 (101) 96 Room Air 11/10/16 22:09 3 Physical Exam Constitutional: General Apperance: overweight Level of Distress: NAD Ambulation: ambulating normally ENMT: normal ENT inspection Neck: supple, trachea midline Lungs: Auscultation: breath sounds normal, no wheezing, no rales/crackles, no rhonchi Cardiovascular: Heart Auscultation: RRR, normal S1, normal S2, II/ MAXIME Musculoskeletal: normal Extremities: no cyanosis, no edema, no clubbing, no ulcers Neurologic: Gait & Station: pertinent finding (no focal motor deficit.) Cranial Nerves: grossly intact Assessment and Plan Assessment and Plan Final Impression: 1. 36-year-old female presents with NSTEMI s/p urgent cardiac catheterization and drug-eluting stent implantation to left circumflex and ramus intermedius. Moderate mid LAD stenosis noted. 2. Systolic ejection murmur with probable bicuspid aortic valve per resting 2- D transthoracic echo performed in 2012. - No significant gradients on invasive hemodynamic measurements of the aortic valve - 2-D echo pending 3. Dyslipidemia - tolerating 40 mg atorvastatin 4. Active tobacco abuse 5. Family history of premature atherosclerotic coronary artery disease - mother age 36 6. DM-2 requiring insulin 7. Chronically elevated WBC's 8. URI / possible TB Plan/Recommendations: I had long discussion with the patient regarding her NSTEMI and ROJAS implantation. Reviewed importance of continuing dual antiplatelet therapy uninterrupted for a minimum of 12 months post PCI. Patient voices understanding and agreement. Atorvastatin will be titrated to 80 mg daily. Toprol-XL 25 mg will be added today. Lisinopril will be resumed as well. Smoking cessation advised. I will review 2-D transthoracic echo when available. All questions answered to her satisfaction. I'll continue to follow during hospitalization. Laboratory Results Last 24 Hours Test 11/10/16 16:15 11/10/16 19:21 11/10/16 19:57 11/10/16 21:07 White Blood Count 22.06 K/uL Red Blood Count 4.44 M/uL Hemoglobin 12.3 g/dL Hematocrit 38.2 % Mean Corpuscular Volume 86.0 fL Mean Corpuscular Hemoglobin 27.7 pg Mean Corpuscular Hemoglobin Concent 32.2 g/dl Platelet Count 459 K/uL Mean Platelet Volume 10.0 fL Neutrophils (%) (Auto) 90.6 % Lymphocytes (%) (Auto) 6.8 % Monocytes (%) (Auto) 1.9 % Eosinophils (%) (Auto) 0.0 % Basophils (%) (Auto) 0.1 % Neutrophils # (Auto) 20.00 K/uL Lymphocytes # (Auto) 1.50 K/uL Monocytes # (Auto) 0.41 K/uL Eosinophils # (Auto) 0.00 K/uL Basophils # (Auto) 0.02 K/uL RDW Standard Deviation 52.3 fL RDW Coefficient of Variation 16.5 % Immature Granulocyte % (Auto) 0.6 % Immature Granulocyte # (Auto) 0.13 K/uL Prothrombin Time 10.8 SECONDS Prothromb Time International Ratio 1.0 Activated Partial Thromboplast Time 24.3 SECONDS Partial Thromboplastin Ratio 0.9 D-Dimer 230 ug/L FEU Sodium Level 135 mmol/L Potassium Level 4.2 mmol/L Chloride Level 104 mmol/L Carbon Dioxide Level 18 mmol/L Anion Gap 13.0 mmol/L Blood Urea Nitrogen 19 mg/dl Creatinine 1.30 mg/dl Est Creatinine Clear Calc Drug Dose 65.7 ml/min Estimated GFR () 60.3 Estimated GFR (Non- 52.0 BUN/Creatinine Ratio 14.8 Random Glucose 386 mg/dl Osmolality 302 mOsm/kg Calcium Level 8.9 mg/dl Magnesium Level 2.0 mg/dl Total Bilirubin 0.2 mg/dl Aspartate Amino Transf (AST/SGOT) 9 U/L Alanine Aminotransferase (ALT/SGPT) 29 U/L Alkaline Phosphatase 76 U/L Total Creatine Kinase 194 U/L 155 U/L Creatine Kinase MB 9.9 ng/ml 8.6 ng/ml Creatine Kinase MB Ratio 5.1 5.5 Troponin I 0.692 ng/ml 1.060 ng/ml Total Protein 7.1 gm/dl Albumin 3.7 gm/dl Globulin 3.4 gm/dl Albumin/Globulin Ratio 1.1 Beta-Hydroxybutyric Acid 2.46 mg/dL Bedside Glucose 271 mg/dl Lactic Acid Level 2.6 mmol/L [place] Activated Coagulation Time 175 SECONDS Test 11/10/16 21:26 11/10/16 21:41 11/10/16 23:17 11/11/16 00:22 Kaolin Activated Coagulation Time 208 SECONDS 230 SECONDS Sodium Level 139 mmol/L Potassium Level 4.1 mmol/L Chloride Level 108 mmol/L Carbon Dioxide Level 24 mmol/L Anion Gap 7.0 mmol/L Blood Urea Nitrogen 18 mg/dl Creatinine 0.88 mg/dl Est Creatinine Clear Calc Drug Dose 96.3 ml/min Estimated GFR () 96.6 Estimated GFR (Non- 83.3 BUN/Creatinine Ratio 20.3 Random Glucose 184 mg/dl Calcium Level 8.3 mg/dl Bedside Glucose 191 mg/dl Test 11/11/16 02:05 11/11/16 04:08 11/11/16 05:59 Lactic Acid Level 1.5 mmol/L Total Creatine Kinase 263 U/L 239 U/L Creatine Kinase MB 15.7 ng/ml 16.4 ng/ml Creatine Kinase MB Ratio 6.0 6.9 Troponin I 13.300 ng/ml 9.800 ng/ml Bedside Glucose 122 mg/dl White Blood Count 20.58 K/uL Red Blood Count 4.32 M/uL Hemoglobin 11.3 g/dL Hematocrit 36.9 % Mean Corpuscular Volume 85.4 fL Mean Corpuscular Hemoglobin 26.2 pg Mean Corpuscular Hemoglobin Concent 30.6 g/dl Platelet Count 426 K/uL Mean Platelet Volume 9.7 fL Neutrophils (%) (Auto) 63.6 % Lymphocytes (%) (Auto) 28.5 % Monocytes (%) (Auto) 6.7 % Eosinophils (%) (Auto) 0.6 % Basophils (%) (Auto) 0.1 % Neutrophils # (Auto) 13.07 K/uL Lymphocytes # (Auto) 5.87 K/uL Monocytes # (Auto) 1.38 K/uL Eosinophils # (Auto) 0.12 K/uL Basophils # (Auto) 0.03 K/uL RDW Standard Deviation 51.6 fL RDW Coefficient of Variation 16.4 % Immature Granulocyte % (Auto) 0.5 % Immature Granulocyte # (Auto) 0.11 K/uL Sodium Level 139 mmol/L Potassium Level 3.5 mmol/L Chloride Level 109 mmol/L Carbon Dioxide Level 25 mmol/L Anion Gap 5.0 mmol/L Blood Urea Nitrogen 17 mg/dl Creatinine 0.83 mg/dl Est Creatinine Clear Calc Drug Dose 102.1 ml/min Estimated GFR () 103.7 Estimated GFR (Non- 89.5 BUN/Creatinine Ratio 20.1 Random Glucose 122 mg/dl Calcium Level 8.4 mg/dl
--- NOTE | 2016-11-11 10:17 | Progress Note ---
Medicine Progress Note Date & Time of Visit: Nov 11, 2016 at 10:06. Subjective patient s/p Cardiac Cath with 3 stents placed last no acute issues overnight seen resting in bed, comfortable states she feels better overall chest pain has resolved no dyspnea, palpitations, dizziness less dry cough, no fever/chills denies other symptoms eager for discharge Objective Last 8 Hrs Date Time Temp Pulse Resp B/P (MAP) Pulse Ox O2 Delivery O2 Flow Rate FiO2 11/11/16 07:43 36.8 81 18 135/84 (101) 96 Room Air 11/11/16 07:11 68 16 96 Room Air 11/11/16 06:00 36.6 75 20 118/79 (92) 99 Room Air 11/11/16 04:00 Room Air 11/11/16 04:00 36.8 76 16 118/74 (89) 98 Room Air 11/11/16 03:00 36.8 81 16 116/67 (83) 97 Room Air Physical Exam: General- oriented x 3, not in distress, speaks in sentences with no effort Eyes- EOMI, anicteric ENT- oropharynx clear Neck- supple, no JVD Lungs- clear breath sounds bilaterally Heart- regular rhythm; no murmur, normal rate Abdomen- normal bowel sounds, soft, nontender Extremities- no pretibial edema, no calf tenderness Neuro- alert, oriented x 3; no gross focal deficits Skin- warm & dry Laboratory Results: Last 24 Hours Test 11/10/16 16:15 11/10/16 19:21 11/10/16 19:57 11/10/16 21:07 White Blood Count 22.06 K/uL Red Blood Count 4.44 M/uL Hemoglobin 12.3 g/dL Hematocrit 38.2 % Mean Corpuscular Volume 86.0 fL Mean Corpuscular Hemoglobin 27.7 pg Mean Corpuscular Hemoglobin Concent 32.2 g/dl Platelet Count 459 K/uL Mean Platelet Volume 10.0 fL Neutrophils (%) (Auto) 90.6 % Lymphocytes (%) (Auto) 6.8 % Monocytes (%) (Auto) 1.9 % Eosinophils (%) (Auto) 0.0 % Basophils (%) (Auto) 0.1 % Neutrophils # (Auto) 20.00 K/uL Lymphocytes # (Auto) 1.50 K/uL Monocytes # (Auto) 0.41 K/uL Eosinophils # (Auto) 0.00 K/uL Basophils # (Auto) 0.02 K/uL RDW Standard Deviation 52.3 fL RDW Coefficient of Variation 16.5 % Immature Granulocyte % (Auto) 0.6 % Immature Granulocyte # (Auto) 0.13 K/uL Prothrombin Time 10.8 SECONDS Prothromb Time International Ratio 1.0 Activated Partial Thromboplast Time 24.3 SECONDS Partial Thromboplastin Ratio 0.9 D-Dimer 230 ug/L FEU Sodium Level 135 mmol/L Potassium Level 4.2 mmol/L Chloride Level 104 mmol/L Carbon Dioxide Level 18 mmol/L Anion Gap 13.0 mmol/L Blood Urea Nitrogen 19 mg/dl Creatinine 1.30 mg/dl Est Creatinine Clear Calc Drug Dose 65.7 ml/min Estimated GFR () 60.3 Estimated GFR (Non- 52.0 BUN/Creatinine Ratio 14.8 Random Glucose 386 mg/dl Osmolality 302 mOsm/kg Calcium Level 8.9 mg/dl Magnesium Level 2.0 mg/dl Total Bilirubin 0.2 mg/dl Aspartate Amino Transf (AST/SGOT) 9 U/L Alanine Aminotransferase (ALT/SGPT) 29 U/L Alkaline Phosphatase 76 U/L Total Creatine Kinase 194 U/L 155 U/L Creatine Kinase MB 9.9 ng/ml 8.6 ng/ml Creatine Kinase MB Ratio 5.1 5.5 Troponin I 0.692 ng/ml 1.060 ng/ml Total Protein 7.1 gm/dl Albumin 3.7 gm/dl Globulin 3.4 gm/dl Albumin/Globulin Ratio 1.1 Beta-Hydroxybutyric Acid 2.46 mg/dL Bedside Glucose 271 mg/dl Lactic Acid Level 2.6 mmol/L Kaolin Activated Coagulation Time 175 SECONDS Test 11/10/16 21:26 11/10/16 21:41 11/10/16 23:17 11/11/16 00:22 Kaolin Activated Coagulation Time 208 SECONDS 230 SECONDS Sodium Level 139 mmol/L Potassium Level 4.1 mmol/L Chloride Level 108 mmol/L Carbon Dioxide Level 24 mmol/L Anion Gap 7.0 mmol/L Blood Urea Nitrogen 18 mg/dl Creatinine 0.88 mg/dl Est Creatinine Clear Calc Drug Dose 96.3 ml/min Estimated GFR () 96.6 Estimated GFR (Non- 83.3 BUN/Creatinine Ratio 20.3 Random Glucose 184 mg/dl Calcium Level 8.3 mg/dl Bedside Glucose 191 mg/dl Test 11/11/16 02:05 11/11/16 04:08 11/11/16 05:59 Lactic Acid Level 1.5 mmol/L Total Creatine Kinase 263 U/L 239 U/L Creatine Kinase MB 15.7 ng/ml 16.4 ng/ml Creatine Kinase MB Ratio 6.0 6.9 Troponin I 13.300 ng/ml 9.800 ng/ml Bedside Glucose 122 mg/dl White Blood Count 20.58 K/uL Red Blood Count 4.32 M/uL Hemoglobin 11.3 g/dL Hematocrit 36.9 % Mean Corpuscular Volume 85.4 fL Mean Corpuscular Hemoglobin 26.2 pg Mean Corpuscular Hemoglobin Concent 30.6 g/dl Platelet Count 426 K/uL Mean Platelet Volume 9.7 fL Neutrophils (%) (Auto) 63.6 % Lymphocytes (%) (Auto) 28.5 % Monocytes (%) (Auto) 6.7 % Eosinophils (%) (Auto) 0.6 % Basophils (%) (Auto) 0.1 % Neutrophils # (Auto) 13.07 K/uL Lymphocytes # (Auto) 5.87 K/uL Monocytes # (Auto) 1.38 K/uL Eosinophils # (Auto) 0.12 K/uL Basophils # (Auto) 0.03 K/uL RDW Standard Deviation 51.6 fL RDW Coefficient of Variation 16.4 % Immature Granulocyte % (Auto) 0.5 % Immature Granulocyte # (Auto) 0.11 K/uL Sodium Level 139 mmol/L Potassium Level 3.5 mmol/L Chloride Level 109 mmol/L Carbon Dioxide Level 25 mmol/L Anion Gap 5.0 mmol/L Blood Urea Nitrogen 17 mg/dl Creatinine 0.83 mg/dl Est Creatinine Clear Calc Drug Dose 102.1 ml/min Estimated GFR () 103.7 Estimated GFR (Non- 89.5 BUN/Creatinine Ratio 20.1 Random Glucose 122 mg/dl Calcium Level 8.4 mg/dl Assessment & Plan 36 year old female with history of DM, HTN, HLD, Smoking, and other problems noted below presenting with chest pain starting 2 days ago. NSTEMI - s./p Cardiac Cath 11/11/15 1. Severe 2 vessel coronary artery disease - Sequential 95%, 90% distal circumflex lesions - 80-90% mid Ramus 2. Normal intracardiac filling pressure. No significant Aortic valve gradient. 3. Successful PCI of distal circumflex with 2 drug-eluting stents (2.5 x 18, 2.25 x 30 Resolute) 4. Successful PCI of Ramus with 1 drug-eluting stent (2.25 x 18 Resolute) -- started on: Plavix, Aspirin, Metoprolol, Lisinopril -- chest pain free monitor in tele -- appreciate Cardio SVC input BILATERAL PNEUMONIA R/O TB - CT chest: 11/09/16 miliary nodules - check sputum culture: pending AFB x 3: pending - afebrile, WBC slightly better - Levaquin IV Day 2 Nebs Pulmonary Consulted HYPERGLYCEMIA, POSSIBLE HHS DM 2 - serum osmolality ordered: 302 - BSGs improved on ISS - appreciate Pharm Gly Mgt input ACUTE RENAL FAILURE - IV NSS given - resolved HTN - resumed Lisinopril added Metoprolol SMOKER - needs counselling on cessation HISTORY OF OPIOID DEPENDENCE - will be cautious on narcotics LEUKOCYTOSIS - appears chronic monitor as outpatient DVT prophylaxis - Lovenox--> heparin Full Code per patient Disposition - pending anticipate d/c home tomorrow Current Inpatient Medications: Current Inpatient Medications Medications (Trade) Dose Ordered Sig/Bonny Route Start Time Stop Time Status Last Admin Dose Admin Acetaminophen (Tylenol Tab) 650 mg Q4H PRN PO 11/10/16 18:45 12/10/16 18:44 11/11/16 02:08 650 MG Levofloxacin (Consult) 1 ea UD PRN N/A 11/10/16 19:00 12/10/16 18:59 Ipratropium [place] (Atrovent 0.02% 0.5MG/2.5ML Neb) 0.5 mg Q6R INH 11/10/16 21:00 12/10/16 20:59 11/11/16 07:11 0.5 MG Levalbuterol (Xopenex 1.25MG/ 0.5ML Neb) 1.25 mg Q6R INH 11/10/16 21:00 12/10/16 20:59 11/11/16 07:11 1.25 MG Miscellaneous Information (Consult Glycemic Management Pharmacy) 1 ea UD PRN N/A 11/10/16 19:05 12/10/16 19:04 Levofloxacin 750 mg/Prmx 150 ml @ 100 mls/hr Q24H IV 11/10/16 20:00 11/17/16 19:59 11/10/16 23:15 100 MLS/HR Gabapentin (Neurontin Cap) 400 mg TID PO 11/10/16 21:00 12/10/16 20:59 11/11/16 08:00 400 MG Pantoprazole Sodium (Protonix Tab) 40 mg BID PO 11/10/16 21:00 12/10/16 20:59 11/11/16 08:01 40 MG Aspirin (Ecotrin Tab) 81 mg QAM PO 11/11/16 09:00 12/11/16 08:59 11/11/16 08:01 81 MG Ondansetron HCl (Zofran Inj) 4 mg Q6H PRN IV 11/10/16 22:45 12/10/16 22:44 Clopidogrel Bisulfate (plAVix TAB) 75 mg QAM PO 11/11/16 09:00 12/11/16 08:59 11/11/16 08:00 75 MG Insulin Aspart (novoLOG ASPART) ACHS SLIDING SCALE ACHS SC 11/11/16 07:00 12/11/16 06:59 11/11/16 07:56 8 UNITS Glucose (Glucose 40% Gel) 15-30 GRAMS 15 GRAMS... UD PRN PO 11/10/16 23:45 12/10/16 23:44 Glucose (Glucose Chew Tab) 4-8 Tablets 4 Tabl... UD PRN PO 11/10/16 23:45 12/10/16 23:44 Dextrose (Dextrose 50% 50ML Syringe) 25-50ML OF 50% DW IV FOR... UD PRN IV 11/10/16 23:45 12/10/16 23:44 Glucagon (Glucagon Inj) 1 mg UD PRN SQ 11/10/16 23:45 12/10/16 23:44 Atorvastatin Calcium (Lipitor Tab) 80 mg HS PO 11/11/16 21:00 12/10/16 20:59 Metoprolol Succinate (Toprol Xl Tab) 25 mg QAM PO 11/12/16 09:00 12/12/16 08:59 Lisinopril (Zestril Tab) 5 mg QAM PO 11/12/16 09:00 12/12/16 08:59 UNV Lisinopril (Zestril Tab) 5 mg 0949 ONCE PO 11/11/16 09:49 11/11/16 09:50 UNV
--- NOTE | 2016-11-11 10:37 | ECHOCARDIOGRAM REPORT ---
*NOTICE TO RECEIVING [employer] This information is strictly Confidential and protected under [place] law. [place] law prohibits you from making any further disclosure of this information unless further disclosure is expressly permitted by the written consent of the person to whom it pertains or is authorized by law. A general authorization for the release of medical or other information is not sufficient for this purpose. Hospital accepts no responsibility if the information is made available to any other person, INCLUDING THE PATIENT. Interpretation Summary * Name: ROGER WEEKS Study Date: 11/11/2016 06:29 AM BP: 135/84 mmHg * Patient Location: C.2T\S\E215\S\1 HR: 71 * : 1980 (M/d/yyyy) Gender: Female Height: 64 in * Age: 36 yrs Ethnicity: [place] Weight: 209 lb * Ordering Physician: Suleiman More * Referring Physician: Self, Referred * Performed By: Carly Bullock RDCS * * Reason For Study: CHEST PAIN, S/P CATH * BSA: 2.0 m2 * The study was technically adequate. * Compared to prior study, changes are noted. * -- Conclusions -- * Ejection Fraction = 55-60%. * The base and mid lateral wall are mildly hypokinetic. * A bicuspid aortic valve cannot be excluded. * Aortic valve sclerosis mild, without significant aortic valvular stenosis. * Moderate aortic regurgitation. * Diastolic dysfunction, Grade II (pseudonormalization pattern). Procedure Details * A contrast injection of Definity was performed to improve assessment of LV function. * Contrast was injected into an intravenous site in the left arm. * One vial of Definity ultrasound contrast was diluted in normal saline to a total volume of 10 ml. A total of '2' ml of solution was administered during imaging. * Lot # [id number] of Definity utilized for procedure. * Expiration date DEC 14. * The attending nurse who injected the contrast agent was CLAUDIO Rodriguez RN. * A complete two-dimensional transthoracic echocardiogram was performed (2D, M-mode, Doppler and color flow Doppler). Left Ventricle * The left ventricle is normal in size. * There is no thrombus. * There is normal left ventricular wall thickness. * Ejection Fraction = 55-60%. * Left ventricular systolic function is normal. * The base and mid lateral wall are mildly hypokinetic. Right Ventricle * The right ventricle is normal size. * The right ventricular systolic function is normal as assessed by tricuspid annular plane systolic excursion (TAPSE) (normal >1.5 cm). Atria * The left atrial size is normal. * Right atrial size is normal. * There is no evidence of atrial septal defect, but resolution does not allow assessment for a patent foramen ovale. Mitral Valve * The mitral valve is normal. * There is no mitral valve stenosis. * Significant mitral regurgitation is absent. Tricuspid Valve * The tricuspid valve is normal. * There is no tricuspid stenosis. * Significant tricuspid regurgitation is absent. Aortic Valve * A bicuspid aortic valve cannot be excluded. * Aortic valve sclerosis mild, without significant aortic valvular stenosis. * Aortic stenosis is absent. * Moderate aortic regurgitation. Pulmonic Valve * The pulmonary valve is not well seen, but the Doppler examination is normal without significant regurgitation or stenosis. Great Vessels * The aortic root is normal size. Pericardium/Pleural * There is no pericardial effusion. Great Vessels * Normal inferior vena cava diameter and respiratory variation suggests normal central venous pressure. Left Ventricular Diastolic Function * Diastolic dysfunction, Grade II (pseudonormalization pattern). MMode 2D Measurements and Calculations IVSd 0.89 cm IVSs 1.5 cm LVIDd 4.5 cm LVIDs 3.1 cm LVPWd 1.3 cm LVPWs 1.8 cm IVS/LVPW 0.70 FS 30.9 % EDV(Teich) 94.0 ml ESV(Teich) 38.8 ml EF(Teich) 58.7 % EDV(cubed) 93.0 ml ESV(cubed) 30.7 ml EF(cubed) 67.0 % % IVS thick 70.0 % % LVPW thick 41.8 % LV mass(C)d 172.9 grams LV mass(C)dI 86.7 grams/m\S\2 LV mass(C)s 198.4 grams LV mass(C)sI 99.6 grams/m\S\2 SV(Teich) 55.1 ml SI(Teich) 27.7 ml/m\S\2 SV(cubed) 62.4 ml SI(cubed) 31.3 ml/m\S\2 Ao root diam 3.0 cm Ao root area 6.9 cm\S\2 LA dimension 3.8 cm LA/Ao 1.3 LVOT diam 2.4 cm LVOT area 4.5 cm\S\2 LVAd ap4 37.8 cm\S\2 LVLd ap4 9.2 cm EDV(MOD-sp4) 128.4 ml EDV(sp4-el) 131.6 ml LVAs ap4 24.4 cm\S\2 LVLs ap4 8.3 cm ESV(MOD-sp4) 62.7 ml ESV(sp4-el) 61.4 ml EF(MOD-sp4) 51.2 % EF(sp4-el) 53.4 % LVAd ap2 36.2 cm\S\2 LVLd ap2 9.1 cm EDV(MOD-sp2) 118.5 ml EDV(sp2-el) 122.6 ml LVAs ap2 21.8 cm\S\2 LVLs ap2 7.7 cm ESV(MOD-sp2) 50.9 ml ESV(sp2-el) 52.1 ml EF(MOD-sp2) 57.0 % EF(sp2-el) 57.5 % LVLd %diff -1.50 % EDV(MOD-bp) 124.8 ml LVLs %diff -6.66 % ESV(MOD-bp) 57.1 ml EF(MOD-bp) 54.2 % SV(MOD-sp4) 65.7 ml SI(MOD-sp4) 33.0 ml/m\S\2 SV(MOD-sp2) 67.6 ml SI(MOD-sp2) 33.9 ml/m\S\2 SV(MOD-bp) 67.6 ml SI(MOD-bp) 33.9 ml/m\S\2 SV(sp4-el) 70.2 ml SI(sp4-el) 35.2 ml/m\S\2 SV(sp2-el) 70.4 ml SI(sp2-el) 35.3 ml/m\S\2 Doppler Measurements and Calculations MV E max tiffanie 112.0 cm/sec MV A max tiffanie 89.4 cm/sec MV E/A 1.3 MV dec time 0.19 sec Ao V2 max 262.4 cm/sec Ao max PG 27.5 mmHg Ao max PG (full) 22.0 mmHg Ao V2 mean 180.1 cm/sec Ao mean PG 14.8 mmHg Ao mean PG (full) 11.7 mmHg Ao V2 VTI 54.5 cm PEDRO LUIS(I,A) 2.2 cm\S\2 PEDRO LUIS(I,D) 2.2 cm\S\2 PEDRO LUIS(V,A) 2.0 cm\S\2 PEDRO LUIS(V,D) 2.0 cm\S\2 AI max tiffanie 491.4 cm/sec AI max PG 96.6 mmHg AI dec slope 232.0 cm/sec\S\2 AI P1/2t 620.4 msec LV V1 max PG 5.6 mmHg LV V1 mean PG 3.2 mmHg LV V1 max 118.1 cm/sec LV V1 mean 83.3 cm/sec LV V1 VTI 27.3 cm SV(Ao) 376.3 ml SI(Ao) 188.8 ml/m\S\2 SV(LVOT) 122.2 ml SI(LVOT) 61.3 ml/m\S\2 TR max tiffanie 226.7 cm/sec
--- NOTE | 2016-11-11 11:11 | Pulmonary Consultation ---
History General Date of Service: Nov 11, 2016. Stated Complaint: Chest Pain HPI The patient is a 36 year old female who presents to [facility] with complaints of Chest Pain. The patient's primary care provider is Irvin Iverson M.D.. Ms. Gonzalez is a 36-year-old white female with history of mild intermittent asthma , hypertension, dyslipidemia, diabetes type 2, DVT during , previous history of pneumonia And hypoxic respiratory failure status post intubation in 2012, nephrolithiasis who presented on 11/10/2016 with complaints of constant left-sided chest pain that radiated to left-sided jaw and arm associated with diaphoresis. She states that her symptoms started 2 days prior and she was seen in the ER one day prior to admission for similar complaints of chest pain. At that time she had EKG findings of nonspecific T-wave changes in inferior leads and a troponin of 6. However she left AMA to arrange childcare for her son. Repeat EKG in the ER upon her return was unchanged and troponin had decreased to 0.6. Cardiology was consulted and she is status post cardiac cath and PCI with 3 drug eluting stents in two vessels. CT chest on 11/09/2016 showed patchy left lower lobe airspace opacity with diffuse miliary nodules. Chest x-ray from 11/11/2014 showed patchy bibasilar parenchymal infiltrates Patient states that about 5 days prior to admission she saw her PMD for a one- week history of cough with productive sputum associated with fevers and sweats. Outpatient chest x-ray revealed left lower lobe pneumonia. She was subsequently prescribed a course of doxycycline as well as prednisone taper and feels that her symptoms have significantly improved. She denies any further chills, fevers, chest pain, palpitations, shortness of breath, hemoptysis, night sweats, intolerance to hot or cold or weight loss. She still has mild intermittent cough. She has unlimited exercise tolerance. She denies any sick contacts or recent travel. She denies any known exposure to tuberculosis. She denies any inhalation of inhalation of drugs or caustic substances. In terms of her asthma, she uses albuterol prn about two times weekly. Historian: patient Onset: last week Complaint Status: improved Modifying Factors: none Review of Systems Constitutional: reports: as stated in HPI Eyes: reports: no symptoms ENT: reports: no symptoms Cardiovascular: reports: no symptoms Respiratory: reports: cough Gastrointestinal: reports: no symptoms Genitourinary - Female: reports: no symptoms Musculoskeletal: reports: no symptoms Integumentary: reports: no symptoms Neurologic: reports: no symptoms Psychiatric: reports: no symptoms Endocrine: no symptoms Hematologic / Lymphatic: no symptoms, as stated in HPI Allergic / Immunologic: no symptoms All Other Symptoms All Other Systems: Reviewed and Negative Past Medical History Past Medical History: Hypertension, hyperlipidemia, diabetes type 2 with neuropathy,mild intermittent asthma, pneumonia status post intubation Tobacco use disorder, DVT Past Surgical History: Cholecystectomy, right knee surgery, right hand surgery, lower back surgery. Family History Diabetes mellitus FH: gallbladder disease FH: heart disease FH: lung disease Hypertension Kidney stones Mother of premature heart disease in 50s. Had her first UT at 32. Patient unaware of biological father's medical history. Brother is currently in 30s and has throat cancer. Parent: Heart Disease, Sibling: Cancer Social History History of smoking since 12. Currently smokes about 1/2 ppd cigarettes. She has previous history of smoking marijuana, cocaine and dope, states last use was about 6 year ago. She currently takes care of her autistic son. Previously worked as [employer]. She denies any alcohol use. Hx Tobacco Use In Past Year?: Yes (1/2 PPD) Smoking Status: Current Every Day Smoker Alcohol: no current use Marital status: single Housing status: lives with family Occupational Status: unemployed Immunizations History of Influenza Vaccine: N/A History of Tetanus Vaccine?: Yes Tetanus Immunization Date: Aug 16, 2010 History of Pneumococcal: No History of Hepatitis B Vaccine: No History of MDRO History of MDRO: No Allergies Coded Allergies: Lidocaine (Verified Allergy, Intermediate, HIVES, 11/09/16) Procaine (Verified Allergy, Intermediate, HIVES, 11/09/16) Penicillins (Verified Allergy, Mild, HAD NO PROBLEM WITH ZOSYN, 11/09/16) [place] (Verified Allergy, Mild, HIVES, 11/09/16) Cephalexin (Verified Allergy, Unknown, ., 11/09/16) Egg (Verified Allergy, Unknown, `, 11/09/16) Tramadol (Verified Allergy, Unknown, SEIZURES, 11/09/16) Azithromycin (Verified Adverse Reaction, Mild, STOMACH PAINS, 11/09/16) Current Medications Reported Home Medications Medications Dose Route/Sig Max Daily Dose Days Date Category Dose Instructions Vibramycin (Doxycycline Hyclate) 100 Mg Cap 100 Mg PO BID 11/09/16 Reported Ventolin Hfa (Albuterol) 200 Puffs/68186 Mcg Aers 2 Puffs INH Q6H PRN 11/09/16 Reported Medroxyprogesterone Aceta (Medroxyprogesterone Acetate (C) 150 Mg/Ml Inj 1 Dose INJ [id number] 10/09/16 Reported Motrin (Ibuprofen) 600 Mg Tab 600 Mg PO Q6H PRN 05/05/15 Reported TAKE WITH FOOD Glucophage Ext Rel (Metformin Hcl) 1,000 Mg Tab 1,000 Mg PO BID 03/17/15 Reported Neurontin (Gabapentin) 400 Mg Cap 400 Mg PO TID 12/04/14 Reported Nexium (Esomeprazole Magnesium) 40 Mg Capcr 40 Mg PO BID 06/01/14 Reported Atorvastatin Calcium (Atorvastatin) 40 Mg Tab 40 Mg PO HS 02/20/14 Reported Lisinopril 10 Mg Tab 10 Mg PO DAILY 02/20/14 Reported Physical Physical Exam Vital Signs: Date Time Temp Pulse Resp B/P (MAP) Pulse Ox O2 Delivery O2 Flow Rate FiO2 11/11/16 08:00 Room Air 11/11/16 07:43 36.8 81 18 135/84 (101) 96 Room Air 11/11/16 07:11 68 16 96 Room Air 11/11/16 06:00 36.6 75 20 118/79 (92) 99 Room Air 11/11/16 04:00 Room Air 11/11/16 04:00 36.8 76 16 118/74 (89) 98 Room Air 11/11/16 03:00 36.8 81 16 116/67 (83) 97 Room Air 11/11/16 01:59 76 98 Room Air 11/11/16 01:00 36.8 75 20 125/76 (92) 98 Room Air 11/11/16 00:30 36.9 74 20 123/80 (94) 98 Room Air 11/11/16 00:00 Room Air 11/10/16 23:42 36.6 82 18 118/64 (82) 98 Room Air 11/10/16 23:30 36.6 74 18 115/75 (88) 99 Room Air 11/10/16 23:15 36.5 73 20 114/70 (85) 98 Room Air 11/10/16 22:53 36.8 86 20 129/74 99 Room Air 11/10/16 22:33 81 18 135/68 (90) 96 Room Air 11/10/16 22:30 Room Air 11/10/16 22:24 79 16 132/66 (88) 95 Room Air 11/10/16 22:09 83 18 142/89 (106) 99 Mask 3 11/10/16 19:32 37.7 80 20 108/75 96 11/10/16 19:10 80 20 108/75 96 Nasal Cannula 2.0 11/10/16 17:24 88 18 116/65 99 Nasal Cannula 2.0 11/10/16 16:44 88 22 116/61 97 Nasal Cannula 2.0 11/10/16 16:35 103 138/95 11/10/16 16:30 103 11/10/16 16:09 99 Room Air 11/10/16 16:09 99 Room Air 11/10/16 16:09 37.7 95 20 138/95 99 Room Air General Appearance: WD/WN, no apparent distress Head: normocephalic, atraumatic Eyes: normal inspection, EOMI, sclerae normal ENT: normal ENT inspection, hearing grossly normal, pharynx normal Neck: supple, no adenopathy, thyroid normal, no JVD Respiratory/Chest: chest non-tender, lungs clear, normal breath sounds, no respiratory distress, no accessory muscle use Cardiovascular: regular rate, rhythm, no edema, no JVD, no murmur Abdomen/GI: normal bowel sounds, non tender, soft, obese Back: normal inspection, no CVA tenderness Extremities/Musculoskelatal: normal inspection, no calf tenderness, no pedal edema, normal range of motion Neurologic/Psych: paunch trimmer II-XII nml as tested, no motor/sensory deficits, alert, normal mood/affect, oriented x 3 Diagnostics Labs Results Past 24 Hours Test 11/10/16 16:15 11/10/16 19:21 11/10/16 19:57 11/10/16 21:07 Range/Units White Blood Count 22.06 4.8-10.8 K/uL Red Blood Count 4.44 4.2-5.4 M/uL Hemoglobin 12.3 12.0-16.0 g/dL Hematocrit 38.2 37-47 % Mean Corpuscular Volume 86.0 80-100 fL Mean Corpuscular Hemoglobin 27.7 25-34 pg Mean Corpuscular Hemoglobin Concent 32.2 32-36 g/dl Platelet Count 459 130-400 K/uL Mean Platelet Volume 10.0 7.4-10.4 fL Neutrophils (%) (Auto) 90.6 % Lymphocytes (%) (Auto) 6.8 % Monocytes (%) (Auto) 1.9 % Eosinophils (%) (Auto) 0.0 % Basophils (%) (Auto) 0.1 % Neutrophils # (Auto) 20.00 1.4-6.5 K/uL Lymphocytes # (Auto) 1.50 1.2-3.4 K/uL Monocytes # (Auto) 0.41 0.11-0.59 K/uL Eosinophils # (Auto) 0.00 0-0.5 K/uL Basophils # (Auto) 0.02 0-0.2 K/uL RDW Standard Deviation 52.3 36.4-46.3 fL RDW Coefficient of Variation 16.5 11.5-14.5 % Immature Granulocyte % (Auto) 0.6 % Immature Granulocyte # (Auto) 0.13 0.00-0.02 K/uL Prothrombin Time 10.8 9.0-12.0 SECONDS Prothromb Time International Ratio 1.0 0.9-1.1 Activated Partial Thromboplast Time 24.3 21.0-31.0 SECONDS Partial Thromboplastin Ratio 0.9 D-Dimer 230 0-500 ug/L FEU Sodium Level 135 136-145 mmol/L Potassium Level 4.2 3.5-5.1 mmol/L Chloride Level 104 98-107 mmol/L Carbon Dioxide Level 18 21-32 mmol/L Anion Gap 13.0 3-11 mmol/L Blood Urea Nitrogen 19 7-18 mg/dl Creatinine 1.30 0.60-1.20 mg/dl Est Creatinine Clear Calc Drug Dose 65.7 ml/min Estimated GFR () 60.3 Estimated GFR (Non- 52.0 BUN/Creatinine Ratio 14.8 10-20 Random Glucose 386 70-99 mg/dl Osmolality 302 280-300 mOsm/kg Calcium Level 8.9 8.5-10.1 mg/dl Magnesium Level 2.0 1.8-2.4 mg/dl Total Bilirubin 0.2 0.2-1 mg/dl Aspartate Amino Transf (AST/SGOT) 9 15-37 U/L Alanine Aminotransferase (ALT/SGPT) 29 12-78 U/L Alkaline Phosphatase 76 45-117 U/L Total Creatine Kinase 194 155 26-192 U/L Creatine Kinase MB 9.9 8.6 0.5-3.6 ng/ml Creatine Kinase MB Ratio 5.1 5.5 0-3.0 Troponin I 0.692 1.060 0-0.045 ng/ml Total Protein 7.1 6.4-8.2 gm/dl Albumin 3.7 3.4-5.0 gm/dl Globulin 3.4 2.5-4.0 gm/dl Albumin/Globulin Ratio 1.1 0.9-2 Beta-Hydroxybutyric Acid 2.46 0.2-2.81 mg/dL Bedside Glucose 271 70-90 mg/dl Lactic Acid Level 2.6 0.4-2.0 mmol/L Kaolin Activated Coagulation Time 175 94-140 SECONDS Test 11/10/16 21:26 11/10/16 21:41 11/10/16 23:17 11/11/16 00:22 Range/Units Kaolin Activated Coagulation Time 208 230 94-140 SECONDS Sodium Level 139 136-145 mmol/L Potassium Level 4.1 3.5-5.1 mmol/L Chloride Level 108 98-107 mmol/L Carbon Dioxide Level 24 21-32 mmol/L Anion Gap 7.0 3-11 mmol/L Blood Urea Nitrogen 18 7-18 mg/dl Creatinine 0.88 0.60-1.20 mg/dl Est Creatinine Clear Calc Drug Dose 96.3 ml/min Estimated GFR () 96.6 Estimated GFR (Non- 83.3 BUN/Creatinine Ratio 20.3 10-20 Random Glucose 184 70-99 mg/dl Calcium Level 8.3 8.5-10.1 mg/dl Bedside Glucose 191 70-90 mg/dl Test 11/11/16 02:05 11/11/16 04:08 11/11/16 05:59 Range/Units Lactic Acid Level 1.5 0.4-2.0 mmol/L Total Creatine Kinase 263 239 26-192 U/L Creatine Kinase MB 15.7 16.4 0.5-3.6 ng/ml Creatine Kinase MB Ratio 6.0 6.9 0-3.0 Troponin I 13.300 9.800 0-0.045 ng/ml Bedside Glucose 122 70-90 mg/dl White Blood Count 20.58 4.8-10.8 K/uL Red Blood Count 4.32 4.2-5.4 M/uL Hemoglobin 11.3 12.0-16.0 g/dL Hematocrit 36.9 37-47 % Mean Corpuscular Volume 85.4 80-100 fL Mean Corpuscular Hemoglobin 26.2 25-34 pg Mean Corpuscular Hemoglobin Concent 30.6 32-36 g/dl Platelet Count 426 130-400 K/uL Mean Platelet Volume 9.7 7.4-10.4 fL Neutrophils (%) (Auto) 63.6 % Lymphocytes (%) (Auto) 28.5 % Monocytes (%) (Auto) 6.7 % Eosinophils (%) (Auto) 0.6 % Basophils (%) (Auto) 0.1 % Neutrophils # (Auto) 13.07 1.4-6.5 K/uL Lymphocytes # (Auto) 5.87 1.2-3.4 K/uL Monocytes # (Auto) 1.38 0.11-0.59 K/uL Eosinophils # (Auto) 0.12 0-0.5 K/uL Basophils # (Auto) 0.03 0-0.2 K/uL RDW Standard Deviation 51.6 36.4-46.3 fL RDW Coefficient of Variation 16.4 11.5-14.5 % Immature Granulocyte % (Auto) 0.5 % Immature Granulocyte # (Auto) 0.11 0.00-0.02 K/uL Sodium Level 139 136-145 mmol/L Potassium Level 3.5 3.5-5.1 mmol/L Chloride Level 109 98-107 mmol/L Carbon Dioxide Level 25 21-32 mmol/L Anion Gap 5.0 3-11 mmol/L Blood Urea Nitrogen 17 7-18 mg/dl Creatinine 0.83 0.60-1.20 mg/dl Est Creatinine Clear Calc Drug Dose 102.1 ml/min Estimated GFR () 103.7 Estimated GFR (Non- 89.5 BUN/Creatinine Ratio 20.1 10-20 Random Glucose 122 70-99 mg/dl Calcium Level 8.4 8.5-10.1 mg/dl Diagnostic Radiology CXR 11/10/2016 IMPRESSION: Patchy basilar parenchymal infiltrates similar to the patient's CT examination dated 11/09/2016 CT chest on 11/09/2016 IMPRESSION: 1. Technically limited study secondary to respiratory motion artifact 2. Patchy left lower lobe airspace opacities, statistically inflammatory. 3. Equivocal diffuse miliary nodules, a finding not described on the preliminary report. 4. Mediastinal lymph nodes the upper limits of normal in size 5. No evidence of pneumothorax. No acute rib fractures identified 6. A 6 week follow-up CT scan subsequent to antibiotic therapy is recommended 7. 18 mm left lobe thyroid nodule Impression Assessment and Plan Community-acquired pneumonia Tobacco use disorder Multiple subcentimeter pulmonary nodules At the current time patient appears to be improving clinically from pneumonia. Usually imaging lags at least 6 weeks behind patients clinical status. Continue with 1 week course of Levaquin. In regards to the miliary diffuse nodules that have been reported by radiology, this can be seen with infections and malignancies--usually metastatic disease. Pulmonary tuberculosis is unlikely as patient doesnt have any risk factors. I do suggest obtaining sputum AFB 3 to rule out active pulmonary TB, however. A PPD can be placed to determine exposure to mycobacteria. Samples can be obtained every 8 hours. Of note, she is not a candidate for non-emergent bronchoscopy at this time as has just had an NSTEMI, status post cardiac catheterization and PCI with drug eluting stents. She is now dual antiplatelet therapy for at least one year. I would recommend a repeat CT scan in 6-8 weeks after antibiotics to evaluate for interval resolution. Of note patient does have a 1.8 cm left lobe thyroid nodule that should be evaluated as an outpatient. Smoking cessation counseling given.
--- NOTE | 2016-11-11 11:40 | Pharmacy Progress Note ---
Glycemic Control Progress Note Date of Service Nov 11, 2016. Scope Glycemic Pharmacist consulted for glycemic control to write orders per [facility] inpatient glycemic control protocol. Objective Accuchecks BSG (last 24hrs): Test 11/10/16 16:15 11/10/16 19:21 11/10/16 23:17 11/11/16 00:22 Random Glucose 386 mg/dl (70-99) 184 mg/dl (70-99) Bedside Glucose 271 mg/dl (70-90) 191 mg/dl (70-90) Test 11/11/16 04:08 11/11/16 05:59 11/11/16 11:08 Bedside Glucose 122 mg/dl (70-90) 186 mg/dl (70-90) Random Glucose 122 mg/dl (70-99) HbA1c: Test 11/11/16 05:59 Recent Pertinent Medications The patient is currently receiving: * Basal insulin: Lantus 5 units x 1 overnight * Correctional Insulin: Novolog Correction per scale ACHS Goal Range: Low 110 mg/dL - High 140 mg/dL Correction Factor: 25 mg/dL/unit * Prandial insulin: Per carb ratio of 1 unit per 8 grams CHO consumed * Oral Agents: None at this time Outpatient Anti-Diabetic Meds Outpatient Anti-diabetic Regimen: * Metformin ER 1 g PO BIDM * A1c not current, most recent from 04/2015 Assessment & Plan ASSESSMENT: * See progress note from 11/10 for more background info, in short: * Pt receiving SQ basal bolus insulin regimen for hyperglycemia secondary to baseline DM (outpatient regimen on hold),stress/infection,recent surgery * Plan last evening was to initiate an insulin drip but this was never started because the patient went to the cath laboratory technician and had a BSG < 200 afterwards * Changes needed to insulin regimen: * AM Fasting BSG = 122 mg/dl. This is in goal range for patient based on inpatient targets and co-morbidities; however, patient will need more basal based upon insulin calculator estimates using patient's wt and stress level of 1. Will give additional dose now to not get behind with BSG control, then start BID dosing tonight. * Post-prandial BSGs are increasing but CF/CR already at stress of 2. Suspect these are increasing secondary to not enough basal on board. PLAN FOR INPATIENT GLYCEMIC CONTROL: * Additional 5 units of Lantus now, then 10 units BID * Continue correction factor of 25 mg/dl/unit * Continue carb ratio of 1 unit per 8 grams CHO consumed * Continue goal range of Low 110 mg/dL - High 140 mg/dL RECOMMENDATIONS FOR DISCHARGE: * Will be based on A1c, once available. Last A1c available > 1 yr ago and was significantly elevated * Please note that the plan above was derived based on current level of insulin resistance and hospital stress. These recommendations are appropriate for inpatient admission only. Plan of care upon discharge will need to be reassessed to avoid potential outpatient hypo/hyperglycemia. Thank you.
[2016-11-11] MEDS ORDERED: INSULIN GLARGINE SOLOSTAR 100 UNITS/ML 3 ML PEN SC ONE (11:45)
[2016-11-11 12:33] LABS: BUN/CREATININE RATIO 18.1 (10-20); CALCIUM 8.3 mg/dl (8.5-10.1); CREATININE 0.93 mg/dl (0.60-1.20); POTASSIUM 3.7 mmol/L (3.5-5.1)
[2016-11-11] MEDS ORDERED: TUBERCULIN SKIN TEST 5 TU in SYRINGE 0 ML ID ONE (13:00)
[2016-11-11] MEDS ORDERED: TPRSR25 PO (14:15)
[2016-11-11] MEDS ORDERED: PLV75 PO (14:15)
[2016-11-11] MEDS ORDERED: LEVO1TAB34 PO (14:15)
[2016-11-11] MEDS ORDERED: LSN5 PO (14:15)
[2016-11-11] MEDS ORDERED: ASPEC81 PO (14:15)
[2016-11-11] MEDS ORDERED: LPT40 PO (14:15)
[2016-11-11] MEDS ORDERED: NTRGSL4 SL (14:23)
--- NOTE | 2016-11-11 14:28 | Discharge Instructions ---
Discharge Instructions Date of Service Nov 11, 2016. Admission Reason for Admission: Chest Pain Discharge Discharge Diagnosis / Problem: HEART ATTACK (NON ST ELEVATION MYOCARDIAL INFARCTION); PNEUMONIA Discharge Goals Goal(s): Diagnostic testing, Therapeutic intervention Activity Recommendations Activity Limitations: as noted below (NO HEAVY EXERTION UNTIL SEEN BY PRIMARY CARE PHYSICIAN ON FOLLOW UP) Lifting Limitations: until after follow-up appointment Exercise/Sports Limitations: until after follow-up appointment May Resume Sexual Activity: after follow-up appointment Driving or Machine Use: NO DRIVING UNTIL FOLLOW UP WITH PRIMARY CARE PHYSICIAN . Instructions / Follow-Up Instructions / Follow-Up PLEASE REVIEW YOUR NEW MEDICATION LIST AND FOLLOW INSTRUCTIONS CAREFULLY. TAKE YOUR MEDICATIONS REGULARLY DIRECTED. IF YOU ARE HAVING RECURRENCE OF CHEST PAIN, TAKE 1 TABLET OF NITROSTAT AND CALL 911 IMMEDIATELY. CALL -- IMMEDIATELY IF YOU ARE HAVING RECURRENCE OF CHEST PAIN, SHORTNESS OF BREATH, DIZZINESS, WEAKNESS, NAUSEA, VOMITING, SWEATING. CALL YOUR PRIMARY CARE PHYSICIAN IMMEDIATELY IF YOU ARE HAVING WORSENING OF COUGH, FEVER/CHILLS. FOLLOW UP WITH YOUR PRIMARY CARE PHYSICIAN THIS WEEK (CLINIC WILL BE CALLING YOU FOR APPOINTMENT SOON). FOLLOW UP WITH [facility] IN 2 WEEKS. Home Care: * Take your medications exactly as directed. Don't skip doses. * Remember that recovery after a heart attack takes time. Plan to rest for at lease 4-8 weeks while you recover. Then return to normal activity when your doctor says it's okay. * Ask your doctor about joining a heart rehabilitation program. * Tell your doctor if you are feeling depressed. Feelings of sadness are common after a heart attack, but it is important that you speak to someone if you are feeling overwhelmed by these feelings. * If you are having chest pain, call 911 for an ambulance. Do NOT drive yourself to the hospital. * Ask your family members to learn CPR. * Learn to take your own blood pressure and pulse. Keep a record of your results. Ask your doctor when you should seek emergency medical attention. He or she will tell you which blood pressure reading is dangerous. Lifestyle Changes: * Maintain a healthy weight. Get help to lose any extra pounds. * Cut back on salt. * Limit canned, dried, packaged, and fast foods. * Don't add salt to your food. * Season foods with herbs instead of salt when you cook. * Break the smoking habit. Enroll in a stop-smoking program to improve your chances of success. * Limit fatty foods. * Check your lipid levels regularly. (Your doctor can show you how to do this.) * Build up your activity according to your doctor's recommendation. * Ask your doctor when it's okay to resume sexual activity. * Tell your doctor about any erectile dysfunction (ED) medication you are taking. Some ED medications are not safe if you take certain heart medications. * Try to manage stress. Follow Up: It is important for you to keep your follow up appointments with your medical provider. Current Hospital Diet Patient's current hospital diet: Diabetes Type 2 Diet, AHA Diet (Heart Healthy) Discharge Diet Recommended Diet: AHA Diet (Heart Healthy), Diabetes Type 2 Diet Procedures Procedures Performed: CARDIAC CATHETERIZATION, MULTIPLE STENT PLACEMENT Pending Studies Studies pending at discharge: yes List of pending studies: FOLLOW UP WITH [facility] Laboratory Results Hemoglobin A1c Test 11/11/16 05:59 Range/Units Medical Emergencies . Who to Call and When: Medical Emergencies: If at any time you feel your situation is an emergency, please call 911 immediately. Call 911 immediately or go to your nearest Emergency Room if you experience any of the following: Warning Signs and Symptoms of a Heart Attack * Chest pain that is not relieved by medication * Shortness of breath . Non-Emergent Contact Non-Emergency issues call your: Primary Care Provider, Drawer In [employer] Call Non-Emergent contact if: you have a fever, you have any medication questions . . "Provider Documentation" section prepared by Suleiman More. . AMI Core Measures Reason no ASA as I/P: Treatment provided - N/A Reason no ASA at D/C: Treatment provided - N/A Reason no statin as I/P: Treatment provided - N/A Reason no statin at D/C: Treatment provided - N/A VTE Core Measure Inpt VTE Proph given/why not?: Enoxaparin (Lovenox)SQ, Unfractionated heparin SQ
[2016-11-11] MEDS ORDERED: RANI150T2 PO (14:30)
--- NOTE | 2016-11-11 14:45 | Discharge Summary ---
Discharge Summary Date of Service Nov 11, 2016. Discharge Summary Admission Date: Nov 10, 2016 at 18:38 Discharge Date: Nov 11, 2016 Discharge Disposition: Home (AGAINST MEDICAL ADVICE) Principal Diagnosis: NSTEMI - s./p Cardiac Cath 11/11/15 Secondary Diagnoses/Problems: Please refer to hospital course below. Procedures: s/p Cardiac Cath with 3 Stents (11/10/[address] Liu Hay); Echo: -- Conclusions -- * Ejection Fraction = 55-60%. * The base and mid lateral wall are mildly hypokinetic. * A bicuspid aortic valve cannot be excluded. * Aortic valve sclerosis mild, without significant aortic valvular stenosis. * Moderate aortic regurgitation. * Diastolic dysfunction, Grade II (pseudonormalization pattern). (CHEST) THORAX WITHOUT CLINICAL HISTORY: Severe left-sided chest pain after coughing. History of pneumonia. COMPARISON STUDY: 01/06/2015 CT DOSE: 1037.42 mGy.cm TECHNIQUE: CT of the thorax was performed from the thoracic inlet to the lung bases. Images are reviewed in the axial, sagittal, and coronal planes. IV contrast was not administered for this examination. FINDINGS: Thyroid: The thyroid appears mildly enlarged. There is an equivocal 18 mm left lobe thyroid nodule. Thoracic aorta: The thoracic aorta is normal in course and caliber, noting standard 3 vessel arch anatomy. Heart: There are coronary artery calcifications. There is no significant pericardial effusion. Lungs and pleural spaces: There is respiratory motion artifact. There are patchy left lower lobe airspace opacities, likely inflammatory. Imaging subsequent to treatment is recommended in follow-up. There is a suggestion of multiple tiny pulmonary nodules. This should be reassessed on follow-up imaging. No pneumothorax is visualized Mediastinum: Mediastinal lymph nodes are the upper limits of normal in size. Sameera: There is no evidence of pathologic hilar adenopathy given the limitations of a noncontrast study Axilla: Clear. Upper abdomen: The gallbladder surgically absent. Skeletal structures: There are old left-sided rib deformities. No acute fractures are evident. IMPRESSION: 1. Technically limited study secondary to respiratory motion artifact 2. Patchy left lower lobe airspace opacities, statistically inflammatory. 3. Equivocal diffuse miliary nodules, a finding not described on the preliminary report. 4. Mediastinal lymph nodes the upper limits of normal in size 5. No evidence of pneumothorax. No acute rib fractures identified 6. A 6 week follow-up CT scan subsequent to antibiotic therapy is recommended 7. 18 mm left lobe thyroid nodule Consultations: Director Of Video Analytics Dr. Gil, Dr. Glen Hay; Pulmonary Dr. Mayfield Pending Studies/Follow-Up: Please refer to hospital course below. Medication Reconciliation New Medications: Levofloxacin (Levaquin) 500 Mg Tab 1 TAB PO DAILY for 6 Days, #6 TAB 0 Refills Nitroglycerin (Nitrostat) 0.4 Mg/1 Tab Subl 1 TAB SL UD PRN for chest pain, #[address] 1 tab under the tongue if with chest pain, then call immediately Ranitidine HCl (Ranitidine HCl) 150 Mg Tab 1 TAB PO BID for 30 Days, #60 TABS 1 Refill Aspirin (Aspirin EC Low Dose) 81 Mg Ectab 81 MG PO QAM for 30 Days, #30 TABS 1 Refill take with full stomach Atorvastatin (Atorvastatin Calcium) 40 Mg Tab 80 MG PO HS for 30 Days, #60 TAB 1 Refill Clopidogrel Bisulfate (Clopidogrel) 75 Mg Tab 75 MG PO QAM for 30 Days, #30 TAB 1 Refill Lisinopril (Lisinopril) 5 Mg Tab 5 MG PO QAM for 30 Days, #30 TAB 1 Refill Metoprolol Succinate (Metoprolol Succinate ER) 25 Mg Tabcr 25 MG PO QAM for 30 Days, #30 TAB 1 Refill Continued Medications: Albuterol Hfa (Ventolin Hfa) 200 Puffs/42036 Mcg Aers 2 PUFFS INH Q6H PRN for SOB/Wheezing, #1 INHALER Gabapentin (Neurontin) 400 Mg Cap 400 MG PO TID Metformin Hcl (Glucophage Ext Rel) 1,000 Mg Tab 1000 MG PO BID, TAB Discontinued Medications: Atorvastatin (Atorvastatin Calcium) 40 Mg Tab 40 MG PO HS Doxycycline Hyclate (Vibramycin) 100 Mg Cap 100 MG PO BID, CAP Esomeprazole Magnesium (Nexium) 40 Mg Capcr 40 MG PO BID, CAP Ibuprofen (Motrin) 600 Mg Tab 600 MG PO Q6H PRN for Pain, TAB TAKE WITH FOOD Lisinopril (Lisinopril) 10 Mg Tab 10 MG PO DAILY Medroxyprogesterone Acetate (C (Medroxyprogesterone Aceta) 150 Mg/Ml Inj 1 DOSE INJ [id number] Admission Information HPI (per Admitting provider): 36 year old female with history of DM, HTN, HLD, Smoking, and other problems noted below presenting with chest pain starting 2 days ago. Follow[address] with Dr. Iverson for Primary Care. About 5 days ago, patient presented to her PCP for productive cough and chest congestion. CXR showed possible left lower lobe pneumonia, and was given Doxycline and Prednisone taper. Her cough has been improving since then per patient. Patient presented to the ER last midnight for left sided chest pain, EKG showing non specific inferior lead t wave changes. Trop was 6. She declined admission and signed out AMA due to the fact that there was no one to take care of her child. She returns to the ER today with chest pain more on the lateral side. EKG still showing non specific inferior lead t wave changes. Trop 0.6. She was given Aspirin en route to the ER, started on Nitropaste, Metoprolol IV and Lovenox 100mg SC. On exam, patient was alert, oriented x 3, still reports left sided chest pain more on the lateral chest. Still has occasional productive cough but no active dyspnea, palpitations, dizziness. No other symptoms. Physical Exam (per Admitting): General Appearance: WD/WN, no apparent distress Head: normocephalic, atraumatic Eyes: normal inspection, EOMI, sclerae normal ENT: normal ENT inspection, hearing grossly normal, pharynx normal Neck: supple, no adenopathy, thyroid normal, no JVD Respiratory/Chest: chest non-tender, lungs clear, normal breath sounds, no respiratory distress, no accessory muscle use Cardiovascular: regular rate, rhythm, no edema, no JVD, no murmur Abdomen/GI: normal bowel sounds, non tender, soft, no organomegaly Back: normal inspection, no CVA tenderness Extremities/Musculoskelatal: normal inspection, no calf tenderness, no pedal edema, normal range of motion 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 NSTEMI, s/p Cardiac Catheterization with Stent Placement- 3 Drug Eluting Stents - presented to ER on November 09, 2016 with chest pain, Troponin level was 6, EKG non specific t wave changes, left against medical advice due to childcare issues returned to ER November 10, 2016 with persistent chest pain, Troponin 0.6, EKG unchanged - Cardiology consulted taken immediately to Cardiac Cath - s./p Cardiac Cath 11/11/15 1. Severe 2 vessel coronary artery disease - Sequential 95%, 90% distal circumflex lesions - 80-90% mid Ramus 2. Normal intracardiac filling pressure. No significant Aortic valve gradient. 3. Successful PCI of distal circumflex with 2 drug-eluting stents (2.5 x 18, 2.25 x 30 Resolute) 4. Successful PCI of Ramus with 1 drug-eluting stent (2.25 x 18 Resolute) -- started on: Plavix, Aspirin, Metoprolol, Lisinopril, increase dose of Atorvastatin -- chest pain free advised another 24 hour observation but due to childcare issues, she preferred to sign out AMA despite extensive discussion of risks involved discussed with patient and family member regarding medication adherence, precautions, things to watch out for at length -- discharge plan: Plavix 75 mg po daily Aspirin 81 mg po daily Metoprolol Succ 25mg po daily Lisinopril 5mg po daily Atorvastatin 80mg po daily Esomeprazole changed to Ranitidine to avoid interaction with Plavix -- follow up with PCP this week follow up with Director Of Video Analytics in 2 weeks BILATERAL PNEUMONIA, COMMUNITY ACQUIRED - CT chest: 11/09/16 IMPRESSION: 1. Technically limited study secondary to respiratory motion artifact 2. Patchy left lower lobe airspace opacities, statistically inflammatory. 3. Equivocal diffuse miliary nodules, a finding not described on the preliminary report. 4. Mediastinal lymph nodes the upper limits of normal in size 5. No evidence of pneumothorax. No acute rib fractures identified 6. A 6 week follow-up CT scan subsequent to antibiotic therapy is recommended 7. 18 mm left lobe thyroid nodule - afebrile but WBC still in the 20k consulted Pulmonary Dr. Mayfield, suspicion for TB low as patient do not have risk factors recommend PPD and AFB sputum x [address] chest in 6-8 weeks to follow up resolution - given Levaquin 500mg po x 6 days to complete 7 day course HYPERGLYCEMIA, DM 2 - BSGs improved given Insulin Sliding Scale - resume Insulin and Metformin ACUTE RENAL FAILURE - IV NSS given - crea improved from 1.3 to 0.9 HTN - Lisinopril decreased added Metoprolol - BP stable - monitor SMOKER - counselling on cessation done LEUKOCYTOSIS - appears chronic monitor as outpatient THYROID LOBE NODULE seen on CT scan of the chest: 18 mm left lobe thyroid nodule full report on Procedure section above further work up as outpatient HISTORY OF OPIOID DEPENDENCE DVT prophylaxis - Lovenox--> heparin given Full Code per patient Disposition left against medical advice ff up with PCP in 3-5 days ff up with Director Of Video Analytics in 2 weeks Total time spent on discharge = 60 minutes This includes examination of the patient, discharge planning, medication reconciliation, and communication with other providers. Discharge Instructions Discharge Instructions Date of Service Nov 11, 2016. Admission Reason for Admission: Chest Pain Discharge Discharge Diagnosis / Problem: HEART ATTACK (NON ST ELEVATION MYOCARDIAL INFARCTION); PNEUMONIA Discharge Goals Goal(s): Diagnostic testing, Therapeutic intervention Activity Recommendations Activity Limitations: as noted below (NO HEAVY EXERTION UNTIL SEEN BY PRIMARY CARE PHYSICIAN ON FOLLOW UP) Lifting Limitations: until after follow-up appointment Exercise/Sports Limitations: until after follow-up appointment May Resume Sexual Activity: after follow-up appointment Driving or Machine Use: NO DRIVING UNTIL FOLLOW UP WITH PRIMARY CARE PHYSICIAN . Instructions / Follow-Up Instructions / Follow-Up PLEASE REVIEW YOUR NEW MEDICATION LIST AND FOLLOW INSTRUCTIONS CAREFULLY. TAKE YOUR MEDICATIONS REGULARLY DIRECTED. IF YOU ARE HAVING RECURRENCE OF CHEST PAIN, TAKE 1 TABLET OF NITROSTAT AND CALL 911 IMMEDIATELY. CALL 9-1 IMMEDIATELY IF YOU ARE HAVING RECURRENCE OF CHEST PAIN, SHORTNESS OF BREATH, DIZZINESS, WEAKNESS, NAUSEA, VOMITING, SWEATING. CALL YOUR PRIMARY CARE PHYSICIAN IMMEDIATELY IF YOU ARE HAVING WORSENING OF COUGH, FEVER/CHILLS. FOLLOW UP WITH YOUR PRIMARY CARE PHYSICIAN THIS WEEK (CLINIC WILL BE CALLING YOU FOR APPOINTMENT SOON). FOLLOW UP WITH [facility] IN 2 WEEKS. Home Care: * Take your medications exactly as directed. Don't skip doses. * Remember that recovery after a heart attack takes time. Plan to rest for at lease 4-8 weeks while you recover. Then return to normal activity when your doctor says it's okay. * Ask your doctor about joining a heart rehabilitation program. * Tell your doctor if you are feeling depressed. Feelings of sadness are common after a heart attack, but it is important that you speak to someone if you are feeling overwhelmed by these feelings. * If you are having chest pain, call 911 for an ambulance. Do NOT drive yourself to the hospital. * Ask your family members to learn CPR. * Learn to take your own blood pressure and pulse. Keep a record of your results. Ask your doctor when you should seek emergency medical attention. He or she will tell you which blood pressure reading is dangerous. Lifestyle Changes: * Maintain a healthy weight. Get help to lose any extra pounds. * Cut back on salt. * Limit canned, dried, packaged, and fast foods. * Don't add salt to your food. * Season foods with herbs instead of salt when you cook. * Break the smoking habit. Enroll in a stop-smoking program to improve your chances of success. * Limit fatty foods. * Check your lipid levels regularly. (Your doctor can show you how to do this.) * Build up your activity according to your doctor's recommendation. * Ask your doctor when it's okay to resume sexual activity. * Tell your doctor about any erectile dysfunction (ED) medication you are taking. Some ED medications are not safe if you take certain heart medications. * Try to manage stress. Follow Up: It is important for you to keep your follow up appointments with your medical provider. Current Hospital Diet Patient's current hospital diet: Diabetes Type 2 Diet, AHA Diet (Heart Healthy) Discharge Diet Recommended Diet: AHA Diet (Heart Healthy), Diabetes Type 2 Diet Procedures Procedures Performed: CARDIAC CATHETERIZATION, MULTIPLE STENT PLACEMENT Pending Studies Studies pending at discharge: yes List of pending studies: FOLLOW UP WITH [facility] Laboratory Results Hemoglobin A1c Test 11/11/16 05:59 Range/Units Medical Emergencies . Who to Call and When: Medical Emergencies: If at any time you feel your situation is an emergency, please call 911 immediately. Call 911 immediately or go to your nearest Emergency Room if you experience any of the following: Warning Signs and Symptoms of a Heart Attack * Chest pain that is not relieved by medication * Shortness of breath .
[2016-11-11] MEDS ORDERED: INSULIN GLARGINE SOLOSTAR 100 UNITS/ML 3 ML PEN SC SCH (21:00)
[2016-11-11] MEDS ORDERED: ATORVASTATIN 40 MG TAB PO SCH (21:00)
[2016-11-11] MEDS ORDERED: NITROGLYCERIN OINT 2% 1GM PACKET EXT SCH (22:00)
[2016-11-12 06:52] LABS: ESTIMATED AVERAGE GLUCOSE 212 mg/dl; HA1C FLAG Normal (Normal)
[2016-11-12] MEDS ORDERED: LISINOPRIL 5 MG TAB PO SCH (09:00)
[2016-11-12] MEDS ORDERED: METOPROLOL SUCC 25MG EXT REL TAB PO SCH (09:00)
[2016-11-12] MEDS ORDERED: ASPI81TA28 PO (15:38)
[2016-11-12] MEDS ORDERED: ATOR-26 PO (15:39)
[2016-11-12] MEDS ORDERED: CLOP1TAB15 PO (15:40)
[2016-11-12] MEDS ORDERED: NXM/40 PO (15:40)
[2016-11-12] MEDS ORDERED: LISI-461 PO (15:41)
[2016-11-12] MEDS ORDERED: METO25TA3 PO (15:42)
[2016-11-12] MEDS ORDERED: NTRGSL/4 UT (15:42)
[2016-11-13] MEDS ORDERED: PPD CHECK ONE (13:00)
== END 2016-11-11 14:45 | disposition left against medical advice (07) | DRG 246 ==
LOC: EDBD 15:58 → C.EDC 16:01 → C.2T 18:38 → EDBEDREQ 18:47 → ENRESERV 19:02
PROVIDERS: ADMIT Internal Medicine; ATTEND Internal Medicine
PROC: 4A023N7 Measurement of Cardiac Sampling and Pressure, Left Heart, Percutaneous Approach (ICD-10-PCS; principal; 2016-11-10 20:35)
PROC: 027136Z Dilation of Coronary Artery, Two Arteries with Three Drug-eluting Intraluminal Devices, Percutaneous Approach (ICD-10-PCS; principal; 2016-11-10 20:35)
DX: I21.4 Non-ST elevation (NSTEMI) myocardial infarction (principal); J18.9 Pneumonia, unspecified organism; N17.9 Acute kidney failure, unspecified; I10 Essential (primary) hypertension; E11.65 Type 2 diabetes mellitus with hyperglycemia; E78.5 Hyperlipidemia, unspecified; J45.909 Unspecified asthma, uncomplicated; D72.829 Elevated white blood cell count, unspecified; Z79.84 Long term (current) use of oral hypoglycemic drugs; Z79.899 Other long term (current) drug therapy; F17.200 Nicotine dependence, unspecified, uncomplicated

== ENCOUNTER 2016-11-12 14:30 | Emergency (ER) | payer OTHER ==
[~2016-11-12] VITALS: Ht 165.1 cm; Wt 93.2 kg
[~2016-11-12 14:30] MED LIST changes: +ASPEC81 PO; -DOXY100C PO; -IBUP-1450 PO; +LEVO1TAB34 PO; -LISI-461 PO; +LSN5 PO; -MEDR150I19 INJ; +NTRGSL4 SL; +PLV75 PO; +RANI150T2 PO; +TPRSR25 PO
[2016-11-12 14:34] VITALS: TEMP 36.8; Ht 165.1 cm; Wt 93.2 kg
[2016-11-12] MEDS ORDERED: KETOROLAC TROMETHAMINE 60 MG/2 ML VIAL IM STA (15:01)
[2016-11-12] MEDS ORDERED: TUBERCULIN SKIN TEST 5 TU in SYRINGE 0 ML INTRAD ONE (15:15)
[2016-11-12] MEDS ORDERED: ASPI81TA28 PO (15:38)
[2016-11-12] MEDS ORDERED: ATOR-26 PO (15:39)
[2016-11-12] MEDS ORDERED: NXM/40 PO (15:40)
[2016-11-12] MEDS ORDERED: CLOP1TAB15 PO (15:40)
[2016-11-12] MEDS ORDERED: LISI-461 PO (15:41)
[2016-11-12] MEDS ORDERED: NTRGSL/4 UT (15:42)
[2016-11-12] MEDS ORDERED: METO25TA3 PO (15:42)
--- NOTE | 2016-11-12 16:29 | DIAGNOSTIC IMAGING REPORT ---
RIGHT VENOUS DOPPLER UPR EXT UNI HISTORY: Pain. Edema. right arm pain eval for dv Right COMPARISON STUDY: None. FINDINGS: The internal jugular vein is patent. There is normal flow within the subclavian vein. There is normal flow and compressibility within the left axillary, basilic, brachial, radial, ulnar, and visualized cephalic veins. IMPRESSION: No DVT within the upper extremity. The above report was generated using voice recognition software. It may contain grammatical, syntax or spelling errors. Electronically signed by: Dale Art M.D. 11/12/2016 4:27 PM Dictated Date/Time: 11/12/2016 4:27 PM
--- NOTE | 2016-11-12 16:30 | DIAGNOSTIC IMAGING REPORT ---
RIGHT ART DOP DUP UPPER EXT UNI CLINICAL HISTORY: right eval for pseudoaneurysm Right pseudoaneurysm. Pain. TECHNIQUE: Doppler ultrasound COMPARISON STUDY: None FINDINGS: Normal arterial study right arm. No evidence for pseudoaneurysm. IMPRESSION: Normal study. No evidence for pseudoaneurysm. No significant stenosis The above report was generated using voice recognition software. It may contain grammatical, syntax or spelling errors. Electronically signed by: Dale Art M.D. 11/12/2016 4:28 PM Dictated Date/Time: 11/12/2016 4:28 PM
[2016-11-12 17:05] VITALS: BP 112/77; PULSE 100; O2SAT 97
--- NOTE | 2016-11-12 20:52 | EMERGENCY ROOM VISIT NOTE ---
History Report prepared by Dottie: Jordan Smith Under the Supervision of: Dr. Max Estrada M.D. First contact with patient: 14:48 Chief Complaint: WRIST PAIN Stated Complaint: RIGHT WRIST/HAND PAIN History of Present Illness The patient is a 36 year old female who presents to the Emergency Room with complaints of constant right wrist pain beginning two days ago. The patient states that she was hospitalized two days ago for a heart catheterization and had a CT scan of her chest. She notes that the sight of where the IV was placed is now tender and it radiates into her last three fingers. She reports that she was diagnosed with pneumonia and told that she had a cyst. She denies any exposure to tuberculosis or any institutionalization. She states that her cough is getting much better. She notes that her sputum was clear. She denies chest pain, fevers, shortness of breath, night sweats, and chills. Source of History: patient Onset: 2 days ago Position: wrist (right) Timing: constant Associated Symptoms: + cough (mild), No fevers, No chills, No diaphoresis ( night), No chest pain, No SOB, No vomiting Review of Systems See HPI for pertinent positives & negatives. A total of 10 systems reviewed and were otherwise negative. Past Medical & Surgical Medical Problems: (1) Asthma (2) Benign hypertension (3) Chest pain (4) Deep venous thrombosis (5) Diabetes mellitus (6) Dyslipidemia (7) Kidney stone (8) Sepsis Surgical Problems: (1) Cholecystectomy Family History Diabetes mellitus FH: gallbladder disease FH: heart disease FH: lung disease Hypertension Kidney stones Social History Smoking Status: Current Every Day Smoker Alcohol Use: none Drug Use: none Marital Status: single Housing Status: lives with family Occupation Status: unemployed Current/Historical Medications Scheduled Aspirin (Aspirin Ec), 81 MG PO DAILY Atorvastatin (Lipitor), 80 MG PO HS Clopidogrel (Plavix), 75 MG PO QAM Esomeprazole Magnesium (Nexium), 40 MG PO BID Gabapentin (Neurontin), 400 MG PO TID Levofloxacin (Levaquin), 1 TAB PO DAILY Lisinopril (Zestril), 10 MG PO DAILY Metformin Hcl (Glucophage Ext Rel), 1,000 MG PO BID Metoprolol Succ (Toprol Xl) (Toprol-Xl), 25 MG PO QAM Nitroglycerin (Nitrostat), 0.4 MG UT PRN Scheduled PRN Albuterol Hfa (Ventolin Hfa), 2 PUFFS INH Q6H PRN for SOB/Wheezing Allergies Coded Allergies: Lidocaine (Verified Allergy, Intermediate, HIVES, 11/09/16) Procaine (Verified Allergy, Intermediate, HIVES, 11/09/16) Penicillins (Verified Allergy, Mild, HAD NO PROBLEM WITH ZOSYN, 11/09/16) [place] (Verified Allergy, Mild, HIVES, 11/09/16) Cephalexin (Verified Allergy, Unknown, ., 11/09/16) Egg (Verified Allergy, Unknown, `, 11/09/16) Tramadol (Verified Allergy, Unknown, SEIZURES, 11/09/16) Azithromycin (Verified Adverse Reaction, Mild, STOMACH PAINS, 11/09/16) Physical Exam Vital Signs Date Time Temp Pulse Resp B/P (MAP) Pulse Ox O2 Delivery O2 Flow Rate FiO2 11/12/16 17:05 100 20 112/77 97 11/12/16 16:36 100 112/77 11/12/16 14:34 36.8 117 20 113/65 97 Room Air Physical Exam Constitutional: Vital signs reviewed. Eyes: Pupils are equal round reactive to light. Conjunctiva are noninjected. ENT: Pharynx is clear without erythema or exudate. Mucous membranes are moist. Neck supple without meningeal signs. Respiratory: Clear to auscultation bilaterally. Breath sounds are equal bilaterally. Cardiovascular: Regular rate and rhythm. No rubs or gallops. GI: Soft, nondistended and nontender. Bowel sounds are present. Musculoskeletal: No peripheral edema. Right upper extremity: Puncture wound to the right radial artery which is intact with no drainage or erythema. Over the ulnar aspect there is another smaller puncture wound with ecchymosis and swelling extended upon the ulnar aspect of the forearm with tenderness, no evidence for compartment syndrome. Integumentary: As above. Neurological: The patient is awake and alert. No focal deficits. Motor and sensation are intact in the right upper extremity. Psychiatric: Normal affect. Medical Decision & Procedures ER Provider Diagnostic Interpretation: Radiology results as stated below per my review and the radiologist's interpretation: RIGHT ART DOP DUP UPPER EXT UNI CLINICAL HISTORY: right eval for pseudoaneurysm Right pseudoaneurysm. Pain. TECHNIQUE: Doppler ultrasound COMPARISON STUDY: None FINDINGS: Normal arterial study right arm. No evidence for pseudoaneurysm. IMPRESSION: Normal study. No evidence for pseudoaneurysm. No significant stenosis The above report was generated using voice recognition software. It may contain grammatical, syntax or spelling errors. Electronically signed by: Dale Art M.D. 11/12/2016 4:28 PM Dictated Date/Time: 11/12/2016 4:28 PM RIGHT VENOUS DOPPLER UPR EXT UNI HISTORY: Pain. Edema. right arm pain eval for dv Right COMPARISON STUDY: None. FINDINGS: The internal jugular vein is patent. There is normal flow within the subclavian vein. There is normal flow and compressibility within the left axillary, basilic, brachial, radial, ulnar, and visualized cephalic veins. IMPRESSION: No DVT within the upper extremity. The above report was generated using voice recognition software. It may contain grammatical, syntax or spelling errors. Electronically signed by: Dale Art M.D. 11/12/2016 4:27 PM Dictated Date/Time: 11/12/2016 4:27 PM Medications Administered Medications (Trade) Dose Ordered Sig/Bonny Route Start Time Stop Time Status Last Admin Dose Admin Tuberculin PPD 5 tu/Syringe 0.1 ml @ 0 mls/hr ONE ONCE INTRAD 11/12/16 15:15 11/12/16 15:16 DC 11/12/16 15:35 0.1 MLS/HR Ketorolac Tromethamine (Toradol Inj) 60 mg NOW STAT IM 11/12/16 15:01 11/12/16 15:09 DC 11/12/16 15:35 60 MG ED Course 1458: The patient was evaluated in room C12B. A complete history and physical exam was performed. 1501: Ordered Toradol Inj 60 mg IM 1515: Ordered Tuberculin PPD 5 tu/Syringe 0.1 ml @ 0 mls/hr INTRAD 1648: I discussed the patient's case with Dr. Hay, Cardiology. He agrees with discharging the patient home. 165: I reevaluated the patient and discussed her test results and exam findings. 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 The patient reports that she will not stay in the hospital again, even if advised. She has a follow-up appointment with her PCP to have her PPD read. The patient verbalized agreement with the discharge instructions. 1654: I spoke with the upper caser to help the patient schedule her follow-up appointment. Medical Decision This is a 36-year-old female who presents with right arm pain after a cardiac catheterization. Differential diagnosis includes pseudoaneurysm, superficial thrombophlebitis, DVT, strain, compartment syndrome. I did perform a limited focused review of portions of the patient's old chart on the electronic medical record. The patient has had a cardiac catheterization on November [address] Hay. Medication Reconciliation: I attest that I have personally reviewed the patient' s current medication list. Blood Pressure Screening: Patient was found to have normal blood pressure on screening and does not require follow-up. I did evaluate the patient as noted above. The patient is presenting with pain to her right arm after cardiac catheterization. She has ecchymosis and tenderness along the ulnar aspect where she states she had a venipuncture performed. Radial pulses normal. There is no evidence of compartment syndrome. She is neurovascularly intact. There was some question of tuberculosis given her CT findings. She was evaluated by pulmonology on her last admission who felt that tuberculosis is very unlikely. They recommended AFB sputum cultures and a PPD. Apparently this was not performed. I spoke to Dr. More who discharged the patient. 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 I did order a PPD here and Dr. More will arrange for interpretation of the PPD in 48 hours with her PCP. She was given IM Toradol for pain control. I did order Doppler of the right upper extremity. I did review the images myself as well as the radiology report as described above. There is no evidence of DVT or pseudoaneurysm. I did discuss the case with Dr. Hay who perform the catheterization. He agreed with my management and disposition. The patient was informed of her test results and will follow up with her doctor in 2 days for reevaluation and check of her PPD. The PPD was placed on her left arm and shows no signs of induration or inflammation at this time. Consults Time Called: 1645 Consulting Physician: Dr. Hay, Cardiology Returned Call: 1647 I discussed the patient's case with Dr. Hay, Cardiology. He agrees with discharging the patient home. Impression Primary Impression: Right arm pain Scribe Attestation The scribe's documentation has been prepared under my direct and personally reviewed by me in its entirety. I confirm that the note above accurately reflects all work, treatment, procedures, and medical decision making performed by me. Departure Information Dispostion Home / Self-Care Referrals Irvin Iverson M.D. (PCP) Forms HOME CARE DOCUMENTATION FORM, IMPORTANT VISIT INFORMATION, WORK / SCHOOL INSTRUCTIONS Patient Instructions Compartment Syndrome, My [facility] Additional Instructions You have been examined and treated today on an emergency basis only. This is not a substitute for, or an effort to provide, complete comprehensive medical care. It is impossible to recognize and treat all injuries or illnesses in a single emergency department visit. It is therefore important that you follow up closely with your physician within 48 hours for interpretation of your PPD. Call as soon as possible for an appointment. Return for worsening symptoms or if you develop fever, vomiting, chest pain, shortness of breath or any other concerning symptoms.
== END 2016-11-12 17:05 | disposition home or self-care (01) ==
LOC: C.EDB 14:32 → C.EDC 17:05
DX: M79.601 Pain in right arm (principal); J45.909 Unspecified asthma, uncomplicated; I10 Essential (primary) hypertension; Z86.718 Personal history of other venous thrombosis and embolism; E11.9 Type 2 diabetes mellitus without complications; E78.5 Hyperlipidemia, unspecified; Z87.442 Personal history of urinary calculi; Z83.3 Family history of diabetes mellitus; Z83.79 Family history of other diseases of the digestive system; Z82.49 Family history of ischemic heart disease and other diseases of the circulatory system; Z83.6 Family history of other diseases of the respiratory system; Z84.1 Family history of disorders of kidney and ureter; F17.210 Nicotine dependence, cigarettes, uncomplicated; Z79.82 Long term (current) use of aspirin; Z79.02 Long term (current) use of antithrombotics/antiplatelets; Z79.899 Other long term (current) drug therapy

== ENCOUNTER 2017-01-23 21:18 | Emergency (ER) | payer OTHER ==
[~2017-01-23] VITALS: Ht 162.6 cm; Wt 89.3 kg
[~2017-01-23 21:18] MED LIST changes: -ASPEC81 PO; +ASPI81TA28 PO; +ATOR-26 PO; +CLOP1TAB15 PO; +LISI-461 PO; -LPT40 PO; -LSN5 PO; +METO25TA3 PO; +NTRGSL/4 UT; -NTRGSL4 SL; -PLV75 PO; -RANI150T2 PO; -TPRSR25 PO
[2017-01-23 21:21] VITALS: TEMP 37.5; Ht 162.6 cm; Wt 89.3 kg
[2017-01-23] MEDS ORDERED: KETOROLAC TROMETHAMINE 60 MG/2 ML VIAL IM STA (21:43)
--- NOTE | 2017-01-23 22:25 | DIAGNOSTIC IMAGING REPORT ---
L-SPINE MIN 4 VIEWS ROUTINE HISTORY: Trauma. Pain. fall. Low back pain COMPARISON: 04/19/2014 FINDINGS: There is no fracture. No subluxation. Mild degenerative disc space changes throughout. Findings consistent with posterior laminectomy and fusion at L4-L5 and S1. This is unchanged in the prior study. No evidence for compression deformity. No evidence for new or interval process. IMPRESSION: Stable postoperative and mild degenerative change as discussed. No acute process. The above report was generated using voice recognition software. It may contain grammatical, syntax or spelling errors. Electronically signed by: Dale Art M.D. 01/23/2017 10:23 PM Dictated Date/Time: 01/23/2017 10:23 PM
[2017-01-23 23:00] VITALS: BP 158/96; PULSE 99; O2SAT 98
--- NOTE | 2017-01-24 04:23 | EMERGENCY ROOM VISIT NOTE ---
ED Visit Note First contact with patient: 21:34 CHIEF COMPLAINT: Low back pain HISTORY OF PRESENT ILLNESS: This 36-year-old female patient presents to the emergency department complaining of pain in the low back which began about 8 hours ago after falling down several stairs at home. The pain was gradual in onset, is now constant and worse with movement. The patient notes the pain as dull and a 7/10. The patient has taken nothing for relief of the pain. The patient denies any loss of control of their bowel or bladder functions. There has been no leg numbness or weakness, and no change in sensation. No nausea or vomiting or abdominal pain. No chest pain or shortness of breath. The patient has had previous back surgery with [facility]. No dysuria or increased urinary frequency. REVIEW OF SYSTEMS: A review of systems was performed with positives and pertinent negatives listed in the history of present illness. All other systems were reviewed and are negative. ALLERGIES: See EMR MEDICATIONS: See EMR PMH: History of chronic back pain SOCIAL HISTORY: Lives locally PHYSICAL EXAM: VITALS: Vitals are noted on the nurse's note and reviewed by myself. Vital signs stable. GENERAL: White female, in no acute distress, nondiaphoretic, well-developed well -nourished. SKIN: The skin was without rashes, erythema, edema, or bruising. Capillary refill less than 2 seconds. NECK: Supple without nuchal rigidity. No cervical spine tenderness. No paraspinous muscle tenderness. HEART: Regular rate and rhythm without murmurs gallops or rubs. LUNGS: Clear to auscultation bilaterally without wheezes, rales or rhonchi. ABDOMEN: Positive bowel sounds x 4. Normal tympanic percussion. Soft, nontender, without masses or organomegaly. Hunt sign negative. MUSCULOSKELETAL: No muscle atrophy, erythema, or edema noted of the back. There is moderate tenderness over the lumbar spinous processes. There is no significant tenderness over the paraspinous muscles. There is no tenderness over the thoracic spine and no paraspinous muscles. There are no muscle spasms present. The patient is slow to move around with maximum tenderness with flexion. Negative straight leg raise test. NEURO: Patient was alert and oriented to person place and time. Normal sensation to light and sharp touch. Deep tendon reflexes 2+ in the lower extremities. Dorsalis pedis pulse 2+ bilaterally. Strength 5/5 and equal in the bilateral lower extremities. L-SPINE MIN 4 VIEWS ROUTINE HISTORY: Trauma. Pain. fall. Low back pain COMPARISON: 04/19/2014 FINDINGS: There is no fracture. No subluxation. Mild degenerative disc space changes throughout. Findings consistent with posterior laminectomy and fusion at L4-L5 and S1. This is unchanged in the prior study. No evidence for compression deformity. No evidence for new or interval process. IMPRESSION: Stable postoperative and mild degenerative change as discussed. No acute process. EMERGENCY DEPARTMENT COURSE: nursing notes and EMR were reviewed. Physical exam was performed. The patient appears to have back pain for the past several hours after falling at home. She does not have significant neurologic deficit or concerning findings for cauda equina or hematoma. She was given 60 mg IM Toradol here in the department for pain control. X-ray was obtained and does not show evidence of acute process. Overall the patient appears well for discharge home. I suspect her pain is from the contusion from the fall. The patient is on a no narcotic prescription she will plan at this facility. She may use [id number] ibuprofen and Tylenol. She is to follow with her primary care physician for further care and management. She was otherwise invited back to the ER with any new, worsening, or concerning symptoms. Problem List Medical Problems: (1) Asthma Status: Chronic (2) Benign hypertension Status: Chronic (3) Deep venous thrombosis Status: Resolved (4) Diabetes mellitus Status: Chronic (5) Dyslipidemia Status: Chronic (6) Kidney stone Status: Resolved Surgical Problems: (1) Cholecystectomy Status: Resolved Current/Historical Medications Scheduled Aspirin (Aspirin Ec), 81 MG PO DAILY Atorvastatin (Lipitor), 80 MG PO HS Clopidogrel (Plavix), 75 MG PO QAM Esomeprazole Magnesium (Nexium), 40 MG PO BID Gabapentin (Neurontin), 400 MG PO TID Lisinopril (Zestril), 10 MG PO DAILY Metformin Hcl (Glucophage Ext Rel), 1,000 MG PO BID Metoprolol Succ (Toprol Xl) (Toprol-Xl), 25 MG PO QAM Nitroglycerin (Nitrostat), 0.4 MG UT PRN Scheduled PRN Albuterol Hfa (Ventolin Hfa), 2 PUFFS INH Q6H PRN for SOB/Wheezing Allergies Coded Allergies: Lidocaine (Verified Allergy, Intermediate, HIVES, 01/23/17) Procaine (Verified Allergy, Intermediate, HIVES, 01/23/17) Penicillins (Verified Allergy, Mild, HAD NO PROBLEM WITH ZOSYN, 01/23/17) [place] (Verified Allergy, Mild, HIVES, 01/23/17) Cephalexin (Verified Allergy, Unknown, ., 01/23/17) Egg (Verified Allergy, Unknown, `, 01/23/17) Tramadol (Verified Allergy, Unknown, SEIZURES, 01/23/17) Azithromycin (Verified Adverse Reaction, Mild, STOMACH PAINS, 01/23/17) Vital Signs Date Time Temp Pulse Resp B/P (MAP) Pulse Ox O2 Delivery O2 Flow Rate FiO2 01/23/17 23:00 99 19 158/96 98 01/23/17 21:21 37.5 109 18 96 Room Air Medications Administered Medications (Trade) Dose Ordered Sig/Bonny Route Start Time Stop Time Status Last Admin Dose Admin Ketorolac Tromethamine (Toradol Inj) 60 mg NOW STAT IM 01/23/17 21:43 01/23/17 21:47 DC 01/23/17 21:59 60 MG Departure Information Impression Primary Impression: Low back pain Dispostion Home / Self-Care Condition GOOD Forms HOME CARE DOCUMENTATION FORM, IMPORTANT VISIT INFORMATION Patient Instructions [facility] Additional Instructions You were seen and evaluated today on an emergency basis only. This is not a substitute for, or an effort to provide, complete comprehensive medical care. It is not possible to recognize and treat all injuries or illnesses in a single emergency department visit. For this reason it is recommended that you followup with your primary care physician or orthopedic surgeon for ongoing care and evaluation. For baseline pain relief you may alternate ibuprofen and acetaminophen every 4 hours for pain control. Take 600 mg ibuprofen (Advil) and then 4 hours later take 1000 mg acetaminophen (Tylenol). Do not take more than 3000 mg acetaminophen in a single day. You are welcome to return to the emergency department anytime with new, worsening, or concerning symptoms.
== END 2017-01-23 22:55 | disposition home or self-care (01) ==
LOC: C.EDB 21:19 → C.EDD 22:55
DX: S39.92XA Unspecified injury of lower back, initial encounter (principal); M54.5 Low back pain; W10.8XXA Fall (on) (from) other stairs and steps, initial encounter; Y92.89 Other specified places as the place of occurrence of the external cause; Z79.899 Other long term (current) drug therapy; E11.9 Type 2 diabetes mellitus without complications; I10 Essential (primary) hypertension

== ENCOUNTER 2017-03-10 15:08 | Emergency (ER) | payer OTHER ==
[~2017-03-10] VITALS: Ht 162.6 cm; Wt 86.1 kg
[~2017-03-10 15:08] MED LIST changes: +ACET-1256 PO; -GABA1CAP5 PO; +GABA800T PO; +HYDR-5688 PO; -LEVO1TAB34 PO; +SULF800T23 PO
[2017-03-10 15:10] VITALS: TEMP 37.2; Ht 162.6 cm; Wt 86.1 kg
[2017-03-10] MEDS ORDERED: OXYCODONE HCL IR 5 MG TAB (IMMEDIATE RELEASE) PO STA ×2 (15:26→18:30)
[2017-03-10 15:49] LABS: BASO % 0.3 %; BASO ABS # 0.06 K/uL (0-0.2); COMPLETE YES; EOS % 1.6 %; HEMATOCRIT 41.8 % (37-47); IG% 1.4 %; MEAN CELL VOLUME 77.4 fL (80-100); MEAN CORPUSCULAR HEMOGLOBIN 24.8 pg (25-34); MEAN CORPUSCULAR HGB CONC 32.1 g/dl (32-36); MEAN PLATELET VOLUME 9.4 fL (7.4-10.4); MONO % 4.3 %; NEUT % 78.4 %; PLATELET COUNT 480 K/uL (130-400); WHITE BLOOD COUNT 17.92 K/uL (4.8-10.8)
[2017-03-10 16:10] LABS: BUN/CREATININE RATIO 7.4 (10-20); C-REACTIVE PROTEIN 0.57 mg/dl (0-0.29); CALCIUM 9.4 mg/dl (8.5-10.1); CREATININE 0.98 mg/dl (0.60-1.20); POTASSIUM 4.4 mmol/L (3.5-5.1); URIC ACID 6.3 mg/dl (2.6-7.2)
--- NOTE | 2017-03-10 17:23 | EMERGENCY ROOM VISIT NOTE ---
ED Visit Note First contact with patient: 17:23 The patient was seen and examined with NELLY Peña. I agree with the history, physical and findings. Please see the note for disposition and details.
[2017-03-10] MEDS ORDERED: OXYC1TAB3 PO (18:58)
[2017-03-10] MEDS ORDERED: PRED20TA2 PO (18:58)
--- NOTE | 2017-03-10 19:00 | EMERGENCY ROOM VISIT NOTE ---
History First contact with patient: 15:19 Chief Complaint: HAND PAIN/INJURY Stated Complaint: LEFT HAND PAIN History of Present Illness The patient is a 37 year old female who presents to the Emergency Room via private vehicle with complaints of "left hand pain". The patient states that she was here week ago for pain and left hand, and was given antibiotics. She states that the redness is now gone, but the pain persists. She finished her last dose of antibiotics last night. She is afebrile. She is right-handed and unemployed. She rates her pain as a 7/10. Review of Systems A complete 6-point Review of Systems was discussed with the patient, with pertinent positives and negatives listed in the History of Present Illness. All remaining Review of Systems questions can be considered negative unless otherwise specified. Past Medical/Surgical History Medical Problems: (1) Asthma (2) Benign hypertension (3) Chest pain (4) Deep venous thrombosis (5) Diabetes mellitus (6) Dyslipidemia (7) Kidney stone (8) Sepsis Surgical Problems: (1) Cholecystectomy Family History Diabetes mellitus FH: gallbladder disease FH: heart disease FH: lung disease Hypertension Kidney stones Social History Smoking Status: Current Every Day Smoker Alcohol Use: none Drug Use: none Marital Status: single Housing Status: lives with family Occupation Status: unemployed Current/Historical Medications Scheduled Acetaminophen (Tylenol), 1,000 MG PO prn ud Aspirin (Aspirin Ec), 81 MG PO DAILY Atorvastatin (Lipitor), 80 MG PO HS Clopidogrel (Plavix), 75 MG PO QAM Esomeprazole Magnesium (Nexium), 40 MG PO BID Gabapentin (Neurontin), 800 MG PO TID Lisinopril (Zestril), 10 MG PO DAILY Metformin Hcl (Glucophage Ext Rel), 1,000 MG PO BID Metoprolol Succ (Toprol Xl) (Toprol-Xl), 25 MG PO QAM Nitroglycerin (Nitrostat), 0.4 MG UT PRN Prednisone (Prednisone Tab), 2 TAB PO DAILY Scheduled PRN Albuterol Hfa (Ventolin Hfa), 2 PUFFS INH Q6H PRN for SOB/Wheezing Oxycodone Ir (Roxicodone Ir), 1-2 TAB PO Q4H PRN for Pain Physical Exam Vital Signs Date Time Temp Pulse Resp B/P (MAP) Pulse Ox O2 Delivery O2 Flow Rate FiO2 03/10/17 19:12 106 16 121/85 98 03/10/17 17:19 106 18 125/71 100 Room Air 03/10/17 15:10 37.2 88 18 133/81 97 Room Air Physical Exam VITAL SIGNS - Vital signs and nursing notes were reviewed. Stable. GENERAL -37-year-old female appearing her stated age who is in no acute distress. Communicates well with provider and answers questions appropriately. SKIN - Without rashes. No petechial rashes. EXTREMITIES - No clubbing or peripheral cyanosis. No pretibial edema present. She is neurovascularly intact in the left hand. There is a small bump at the dorsal proximal base of the metacarpals. This is slightly fluctuant to palpation. +5/5 strength noted in UE/LE bilaterally. Medical Decision & Procedures Laboratory Results 03/10/17 15:40 Red Blood Count 5.40, Mean Corpuscular Volume 77.4, Mean Corpuscular Hemoglobin 24.8, Mean Corpuscular Hemoglobin Concent 32.1, Mean Platelet Volume 9.4, Neutrophils (%) (Auto) 78.4, Lymphocytes (%) (Auto) 14.0, Monocytes (%) (Auto) 4.3, Eosinophils (%) (Auto) 1.6, Basophils (%) (Auto) 0.3, Neutrophils # (Auto) 14.05, Lymphocytes # (Auto) 2.50, Monocytes # (Auto) 0.77, Eosinophils # (Auto) 0.29, Basophils # (Auto) 0.06 03/10/17 15:40 Test 03/10/17 00:00 03/10/17 15:40 Urine Test NEG (NEG) White Blood Count 17.92 K/uL (4.8-10.8) Red Blood Count 5.40 M/uL (4.2-5.4) Hemoglobin 13.4 g/dL (12.0-16.0) Hematocrit 41.8 % (37-47) Mean Corpuscular Volume 77.4 fL (80-100) Mean Corpuscular Hemoglobin 24.8 pg (25-34) Mean Corpuscular Hemoglobin Concent 32.1 g/dl (32-36) Platelet Count 480 K/uL (130-400) Mean Platelet Volume 9.4 fL (7.4-10.4) Neutrophils (%) (Auto) 78.4 % Lymphocytes (%) (Auto) 14.0 % Monocytes (%) (Auto) 4.3 % Eosinophils (%) (Auto) 1.6 % Basophils (%) (Auto) 0.3 % Neutrophils # (Auto) 14.05 K/uL (1.4-6.5) Lymphocytes # (Auto) 2.50 K/uL (1.2-3.4) Monocytes # (Auto) 0.77 K/uL (0.11-0.59) Eosinophils # (Auto) 0.29 K/uL (0-0.5) Basophils # (Auto) 0.06 K/uL (0-0.2) RDW Standard Deviation 50.7 fL (36.4-46.3) RDW Coefficient of Variation 17.9 % (11.5-14.5) Immature Granulocyte % (Auto) 1.4 % Immature Granulocyte # (Auto) 0.25 K/uL (0.00-0.02) Erythrocyte Sedimentation Rate 60 mm/hr (0-21) Anion Gap 12.0 mmol/L (3-11) Est Creatinine Clear Calc Drug Dose 81.9 ml/min Estimated GFR () 84.2 Estimated GFR (Non- 72.7 BUN/Creatinine Ratio 7.4 (10-20) Uric Acid 6.3 mg/dl (2.6-7.2) Calcium Level 9.4 mg/dl (8.5-10.1) C-Reactive Protein 0.57 mg/dl (0-0.29) Medications Administered Medications (Trade) Dose Ordered Sig/Bonny Route Start Time Stop Time Status Last Admin Dose Admin Oxycodone HCl (Roxicodone Immediate Rel Tab) 5 mg NOW STAT PO 03/10/17 15:26 03/10/17 15:27 DC 03/10/17 16:04 5 MG Oxycodone HCl (Roxicodone Immediate Rel Tab) 5 mg NOW STAT PO 03/10/17 18:30 03/10/17 18:31 DC 03/10/17 18:46 5 MG Medical Decision Patient was seen and evaluated as above. She presents to us today with left hand pain. I personally was involved in the patient's care on her previous visit. This is for near identical presentation with worsening of her symptoms. Fortunately, there is no erythema present at this time and she is no longer tachycardic. Previously when she was here she had left AMA and I was concerned for sepsis. Wrist upon her evaluation at that time I do believe that narcotic medication was warranted for the severity of pain of which was both subjectively and objectively observed. Today, I believe that she is likely experiencing a ganglion cyst. It is possible that last time there may be an underlying infection however today on exam as well as a the attending evaluation with believe she is likely experiencing a ganglion cyst. She has decreased ability to extend the fingers. It certainly does seem painful for her which I do believe warrants an additional short course prescription for her pain. This will only be for 3 or less days. She was informed she is to wear a splint which she was given last time and follow with orthopedics. She was educated upon management. I do not suspect sepsis or septic joint. IV access was established to evaluate for severe or emergent pathology. The PDMP was searched. There is leukocytosis of 17.92 of which appears to be similar to baseline. Platelet count high at 480. ESR high at 60. Sodium low 135. Anion gap of 12. Carbon dioxide low at 19. Glucose high at 292. CRP high 0.57. test negative. I did order an ultrasound however there was a significant delay in obtaining this patient preferred to go home. I believe this is reasonable. She'll be given a short prescription for oxycodone immediate release of which she was given here as well as educated upon management. She will also be given prednisone to help with any underlying potential gout. She was educated upon management, educated upon worrisome symptoms in which to return, had questions answered prior to discharge, and was discharged home in good condition. Medication list was reviewed. In she was found to be hypertensive today slightly which I believe secondary to situation and her level of pain. ] In the evaluation and treatment of this patient, the following differential diagnoses were considered: Wrist Sprain, Wrist Fracture, Wrist Dislocation, Scapholunate Dissociation, Carpal Fracture, Metacarpal Fracture, Radial Styloid Process Fracture, Ulnar Styloid Process Fracture, or Carpal Tunnel Syndrome. Impression Primary Impression: Ganglion cyst of tendon sheath of left hand Departure Information Dispostion Home / Self-Care Condition GOOD Prescriptions Prednisone (Prednisone Tab) 20 Mg Tab 2 TAB PO DAILY for 5 Days, #10 TAB Prov: Shalom Cutler PA-C 03/10/17 Oxycodone Ir (Roxicodone Ir) 5 Mg Tab 1-2 TAB PO Q4H Y for Pain, #15 TAB For Initial Treatment Prov: Shalom Cutler PA-C 03/10/17 Referrals Irvin Iverson M.D. (PCP) Darryl Becerra M.D. Patient Instructions My [facility] Additional Instructions You have been treated in the Emergency Department for Wrist Pain. You have received pain medicine in the emergency department which impairs your ability to operate a vehicle. It is illegal for you to drive after receiving these medicines. You have been prescribed Prednisone 40 mg to be taken orally once a day for the next 5 days. This is an anti-inflammatory medicine to be used to help minimize your symptoms. You should take the COMPLETE course of the medication. You have been prescribed OXY IR to be used for pain control. This is a narcotic medication. You cannot drive or consume alcohol while on this medicine. This medicine should only be used for pain that cannot be controlled with over-the- counter pain medicines. For pain control, you can use the following [id number] medicines : - Regular strength (325mg/tab) Tylenol (acetaminophen) 2 tabs every 4-6 hours as needed. Do not exceed 12 tablets in a 24 hour period. Avoid taking more than 3 grams (3000 mg) of Tylenol per day. This includes any other sources of acetaminophen you may take on a regular basis. - Regular strength (200 mg/tab) Advil (ibuprofen) 1-2 tabs every 4-6 hours as needed. Do not exceed a dose of 3200 mg per day. If this is a recent injury (<24 hrs), ice can be applied to the area of pain for the first 3 days to help decrease pain and inflammation. You have been provided the number for an Orthopaedic Surgeon. You should call this number as soon as possible to establish a follow-up visit from today's Emergency Department visit. Keep the brace/splint in place until evaluated by Orthopedics. Return to the Emergency Department if your current symptoms worsen despite treatment course outlined above, or if you develop any of the following symptoms : intractable pain despite aforementioned treatment course or new onset of numbness or tingling of the fingers. Please return with any new/concerning symptoms.
[2017-03-10 19:12] VITALS: BP 121/85; PULSE 106; O2SAT 98
== END 2017-03-10 19:17 | disposition home or self-care (01) ==
LOC: C.EDB 15:10 → C.EDD 19:17
DX: M67.442 Ganglion, left hand (principal); I10 Essential (primary) hypertension; J45.909 Unspecified asthma, uncomplicated; E11.9 Type 2 diabetes mellitus without complications; E78.5 Hyperlipidemia, unspecified; F17.200 Nicotine dependence, unspecified, uncomplicated; Z86.718 Personal history of other venous thrombosis and embolism; Z87.442 Personal history of urinary calculi; Z79.82 Long term (current) use of aspirin; Z79.84 Long term (current) use of oral hypoglycemic drugs; Z83.3 Family history of diabetes mellitus; Z82.49 Family history of ischemic heart disease and other diseases of the circulatory system; Z84.1 Family history of disorders of kidney and ureter

== ENCOUNTER 2017-06-02 12:24 | Emergency (ER) | payer OTHER ==
[~2017-06-02] VITALS: Ht 162.6 cm; Wt 82.1 kg
[~2017-06-02 12:24] MED LIST changes: -HYDR-5688 PO; +OXYC1TAB3 PO; -SULF800T23 PO
[2017-06-02 12:48] VITALS: TEMP 37; Ht 162.6 cm; Wt 82.1 kg
[2017-06-02] MEDS ORDERED: ETHYL CHLORIDE AER PER SPRAY 100 ML CAN ONE (13:32)
[2017-06-02] MEDS ORDERED: HYDROCODONE/ACETAMIN 5/325MG TAB PO STA (13:55)
[2017-06-02] MEDS ORDERED: CEPHALEXIN MONOHYDRATE 250 MG CAP PO ONE (14:00)
[2017-06-02] MEDS ORDERED: CEPH500C PO (14:00)
[2017-06-02] MEDS ORDERED: SULFAMETHOXAZOLE/TRIMETHOPRIM DS 800/160MG TAB PO ONE (14:00)
[2017-06-02] MEDS ORDERED: SULF800T23 PO (14:00)
[2017-06-02] MEDS ORDERED: GABA600T PO (14:02)
--- NOTE | 2017-06-02 14:03 | EMERGENCY ROOM VISIT NOTE ---
ED Visit Note First contact with patient: 13:05 CHIEF COMPLAINT: Abscess on the right forearm HISTORY OF PRESENT ILLNESS: This 37-year-old female presents to the emergency department with concern for an abscess on her right arm. She states she noticed a hard tender area on the right forearm 2 days ago. It is slowly getting larger, more painful and tender. The pain is constant, aching, 6/10. The patient has not tried any medications for the pain. No fever, chills, or loss of appetite. There has been no drainage from the area. There was no injury to the area preceding the infection. She reports a history of perineal abscesses in the past. She is a diabetic on oral medications only. She denies any history of IV drug abuse. She denies any headaches, chest pain, shortness of breath, abdominal pain, nausea or vomiting, diarrhea, urinary symptoms, or rash. REVIEW OF SYSTEMS: A complete 10 point review of systems was reviewed with the patient with pertinent positives and negatives as per history of present illness. All else were negative. PMH: Reviewed in the chart. SOCIAL HISTORY: Patient lives at home. She is a current every day smoker. ALLERGIES: Reviewed in the chart. Of note, patient states she is not allergic to any antibiotics, but they have caused her to have yeast infections in the past. PHYSICAL EXAM: Vital Signs: Reviewed Nurse's notes. Afebrile. CONSTITUTIONAL: Pleasant and cooperative. No acute distress. Well appearing and well nourished. HEENT: Normocephalic, atraumatic. Pupils equal, round and reactive to light, EOMI. TMs normal. Pharynx normal. NECK: Supple, full active range of motion without discomfort. RESPIRATORY: Clear to auscultation bilaterally with no wheezing, crackles, rhonchi or stridor. Equal expansion bilaterally. CARDIOVASCULAR: Regular rate and rhythm with no murmurs, rubs or gallops. Normal peripheral perfusion. No edema. GASTROINTESTINAL: Soft, nontender, nondistended. No palpable masses or HSM. Bowel sounds present in all quadrants. MUSCULOSKELETAL: Full range of motion of all joints without discomfort. INTEGUMENTARY: There is an indurated area on the anterior mid forearm which measures about 4 cm in diameter. Very tender to palpation. Warm to the touch. It is fluctuant but there is no pointing or drainage. There is a zone of inflammation around it but no lymphangitis. NEUROLOGIC: Alert and oriented X 4 with normal affect. No focal neurologic deficits noted. Normal speech. Normal gait observed. EMERGENCY DEPARTMENT COURSE: I examined the patient. Differential diagnosis includes abscess, cellulitis, sebaceous cyst, MRSA, among others. Exam findings consistent with abscess and surrounding mild cellulitis. Utilizing the bedside ultrasound, the right forearm was scanned, confirming a fluid collection in the area consistent with abscess. I obtained verbal consent from the patient to perform the procedure. The patient states she is allergic to lidocaine, she consented to having the procedure done without local anesthesia. Using saline and Betadine cleansing and sterile technique, the abscess cavity was incised with a #11 scalpel blade. Purulent material drained and more was expressed. Wound culture was collected and sent to the lab. The abscess cavity was flushed with copious amount of normal saline. Hemostasis was achieved. Patient tolerated the procedure well with no occasions. I did not feel the wound warranted packing. The wound was dressed with bacitracin and an occlusive sterile dressing. The patient was provided with syringe for continued flushing of the wound at home. The patient did request something for pain after the I&D, as we were unable to provide anesthesia during the procedure , she was given an oral [place] tablet. Given the mild cellulitis and the patient is a diabetic, will treat with antibiotics. Rx for Keflex and Bactrim were sent to the pharmacy, first dose given in the ED. The patient was given strict instructions for close follow-up regarding her wound, as well as wound care at home, and was given return precautions should her symptoms worsen, she verbalized understanding. The patient was discharged home in stable condition and ambulatory. Problem List Medical Problems: (1) Asthma Status: Chronic (2) Benign hypertension Status: Chronic (3) Deep venous thrombosis Status: Resolved (4) Diabetes mellitus Status: Chronic (5) Dyslipidemia Status: Chronic (6) Kidney stone Status: Resolved Surgical Problems: (1) Cholecystectomy Status: Resolved Current/Historical Medications Scheduled Acetaminophen (Tylenol), 1,000 MG PO prn ud Aspirin (Aspirin Ec), 81 MG PO DAILY Atorvastatin (Lipitor), 80 MG PO HS Cephalexin Monohydrate (Keflex), 500 MG PO QID Clopidogrel (Plavix), 75 MG PO QAM Esomeprazole Magnesium (Nexium), 40 MG PO BID Gabapentin (Neurontin), 600 MG PO TID Lisinopril (Zestril), 10 MG PO DAILY Metformin Hcl (Glucophage Ext Rel), 1,000 MG PO BID Metoprolol Succ (Toprol Xl) (Toprol-Xl), 25 MG PO QAM Nitroglycerin (Nitrostat), 0.4 MG UT PRN Sulfa/Trimethoprim (Bactrim Ds 800MG/160MG), 1 TAB PO BID Scheduled PRN Albuterol Hfa (Ventolin Hfa), 2 PUFFS INH Q6H PRN for SOB/Wheezing Allergies Coded Allergies: Cephalexin (Verified Allergy, Intermediate, YEAST INFECTIONS, 06/02/17) Egg (Verified Allergy, Intermediate, GI UPSET, 06/02/17) Lidocaine (Verified Allergy, Intermediate, HIVES, 06/02/17) Procaine (Verified Allergy, Intermediate, HIVES, 06/02/17) Penicillins (Verified Allergy, Mild, HAD NO PROBLEM WITH ZOSYN, 06/02/17) [place] (Verified Allergy, Mild, HIVES, 06/02/17) Tramadol (Verified Allergy, Unknown, SEIZURES, 06/02/17) Azithromycin (Verified Adverse Reaction, Mild, STOMACH PAINS, 06/02/17) Vital Signs Date Time Temp Pulse Resp B/P (MAP) Pulse Ox O2 Delivery O2 Flow Rate FiO2 06/02/17 14:26 72 20 135/88 99 06/02/17 12:48 37.0 104 16 143/84 100 Room Air Medications Administered Medications (Trade) Dose Ordered Sig/Bonny Route Start Time Stop Time Status Last Admin Dose Admin Acetaminophen/ Hydrocodone Bitart ([place] 5/325 Tab) 1 tab NOW STAT PO 06/02/17 13:55 06/02/17 13:58 DC 06/02/17 14:19 1 TAB Trimethoprim/ Sulfamethoxazole (Septra Ds 800/ 160MG Tab) 1 tab NOW ONCE PO 06/02/17 14:00 06/02/17 14:01 DC 06/02/17 14:19 1 TAB Cephalexin Monohydrate (Keflex Cap) 500 mg NOW ONCE PO 06/02/17 14:00 06/02/17 14:01 DC 06/02/17 14:19 500 MG Departure Information Impression Primary Impression: Abscess of right forearm Dispostion Home / Self-Care Condition GOOD Prescriptions Sulfa/Trimethoprim (Bactrim Ds 800MG/160MG) Tab 1 TAB PO BID for 10 Days, #20 TAB Prov: Gali Veliz, CONTROL PANEL OPERATOR [employer]IT 06/02/17 Cephalexin Monohydrate (Keflex) 500 Mg Cap 500 MG PO QID for 10 Days, #40 CAP Prov: Gali Veliz, CONTROL PANEL OPERATOR [employer] 06/02/17 Referrals Irvin Iverson M.D. (PCP) Patient Instructions ED Abscess Tanya Carter [facility] Additional Instructions You were seen in the Emergency Department for Incision and Drainage of the abscess on your right forearm. You were prescribed Keflex and Bactrim to be taken for 10 days. Both of these medications are antibiotics. Stop these medications and contact a medical provider if you were to develop any significant adverse side effects including: wheezing, shortness of breath, passing out, vomiting, or a diffuse rash. Always take antibiotics as directed and COMPLETE the ENTIRE course regardless of the improvement of your symptoms. All antibiotics have the potential of causing diarrhea, stomach upset, or yeast infections. To help prevent against this, you may take a daily probiotic or eat yogurt every day. Proper wound care is essential for adequate wound healing and infection prevention. You can shower and clean the wound with soap and water. Use the provided syringe to flush the wound 4-5 times twice a day with clean lukewarm tap water. Do not scour over the wound. Pat dry with a towel. Do not submerse the wound (i.e. bathe or dish wash) until the sutures have been removed. You can use an antibiotic ointment with a dressing over the wound for the next 3-4 days. After this time you may leave the wound dry and open to the air. If crust develops over the wound you can use a Q-tip to apply a 1:1 peroxide:water solution to clean the wound. As with any laceration you may have received nerve damage to the surrounding tissues. This damage may or may not be permanent. For pain control, you can use the following [id number] medicines (if >12 yo): - Extra strength (500mg/tab) Tylenol (acetaminophen) 1-2 tabs every 6-8 hours as needed. Do not exceed 6 tablets in a 24 hour period. Avoid taking more than 3 grams (3000 mg) of Tylenol per day. This includes any other sources of acetaminophen you may take on a regular basis. - Regular strength (200 mg/tab) Advil (ibuprofen) 1-2 tabs every 4-6 hours as needed. Do not exceed a dose of 2400 mg per day. Follow-up with your primary care provider in the next 2 days to have your wound rechecked, or sooner for worsening symptoms. If you're unable to get in with her primary care provider, please return to the emergency department to be rechecked. Look for signs of infection of the wound including: increased pain, redness, swelling, foul discharge, streaking up the arm, or fevers/chills. If any of these are noticed you should return to the Emergency Department for further assessment and treatment. Work Instructions Return To Work: 2 days
[2017-06-02 14:26] VITALS: BP 135/88; PULSE 72; O2SAT 99
--- NOTE | 2017-06-04 16:41 | Pharmacy Progress Note ---
ED Pharmacist Culture FollowUp Date of Service: Jun 04, 2017. Called patient regarding wound culture growing pseudomonas. Prescription for levofloxacin 750mg Q24 X 7 days called to [facility] at the patient's request. The patient was also informed to stop taking keflex at his time. Case discussed with Gali Veliz, who is the prescribing provider.
== END 2017-06-02 14:28 | disposition home or self-care (01) ==
LOC: C.EDB 12:25 → C.EDD 14:28
DX: L02.413 Cutaneous abscess of right upper limb (principal); E11.9 Type 2 diabetes mellitus without complications; I10 Essential (primary) hypertension; J45.909 Unspecified asthma, uncomplicated; E78.5 Hyperlipidemia, unspecified; F17.200 Nicotine dependence, unspecified, uncomplicated; Z86.718 Personal history of other venous thrombosis and embolism; Z87.442 Personal history of urinary calculi; Z90.49 Acquired absence of other specified parts of digestive tract; Z79.02 Long term (current) use of antithrombotics/antiplatelets; Z79.82 Long term (current) use of aspirin; Z79.84 Long term (current) use of oral hypoglycemic drugs; Z79.899 Other long term (current) drug therapy

== ENCOUNTER 2017-06-18 16:05 | Emergency (ER) | payer OTHER ==
[~2017-06-18] VITALS: Ht 162.6 cm; Wt 88.8 kg
[~2017-06-18 16:05] MED LIST changes: +GABA600T PO; -GABA800T PO; -OXYC1TAB3 PO
[2017-06-18 16:10] VITALS: TEMP 37.2; Ht 162.6 cm; Wt 88.8 kg
--- NOTE | 2017-06-18 16:26 | EMERGENCY ROOM VISIT NOTE ---
ED Visit Note First contact with patient: 16:13 I have seen and examined this patient with Dolly Rico and generally agree with the treatment plan as discussed. Problem List Medical Problems: (1) Asthma Status: Chronic (2) Benign hypertension Status: Chronic (3) Deep venous thrombosis Status: Resolved (4) Diabetes mellitus Status: Chronic (5) Dyslipidemia Status: Chronic (6) Kidney stone Status: Resolved Surgical Problems: (1) Cholecystectomy Status: Resolved Current/Historical Medications Scheduled Acetaminophen (Tylenol), 1,000 MG PO prn ud Aspirin (Aspirin Ec), 81 MG PO DAILY Atorvastatin (Lipitor), 80 MG PO HS Clopidogrel (Plavix), 75 MG PO QAM Esomeprazole Magnesium (Nexium), 40 MG PO BID Gabapentin (Neurontin), 600 MG PO TID Lisinopril (Zestril), 10 MG PO DAILY Metformin Hcl (Glucophage Ext Rel), 1,000 MG PO BID Metoprolol Succ (Toprol Xl) (Toprol-Xl), 25 MG PO QAM Nitroglycerin (Nitrostat), 0.4 MG UT PRN Scheduled PRN Albuterol Hfa (Ventolin Hfa), 2 PUFFS INH Q6H PRN for SOB/Wheezing Allergies Coded Allergies: Cephalexin (Verified Allergy, Intermediate, YEAST INFECTIONS, 06/02/17) Egg (Verified Allergy, Intermediate, GI UPSET, 06/02/17) Lidocaine (Verified Allergy, Intermediate, HIVES, 06/02/17) Procaine (Verified Allergy, Intermediate, HIVES, 06/02/17) Penicillins (Verified Allergy, Mild, HAD NO PROBLEM WITH ZOSYN, 06/02/17) [place] (Verified Allergy, Mild, HIVES, 06/02/17) Tramadol (Verified Allergy, Unknown, SEIZURES, 06/02/17) Azithromycin (Verified Adverse Reaction, Mild, STOMACH PAINS, 06/02/17) Vital Signs Date Time Temp Pulse Resp B/P (MAP) Pulse Ox O2 Delivery O2 Flow Rate FiO2 06/18/17 16:10 37.2 115 20 137/85 99 Room Air Departure Information Referrals Irvin Iverson M.D. (PCP) Patient Instructions My [facility]
[2017-06-18] MEDS ORDERED: SULFAMETHOXAZOLE/TRIMETHOPRIM DS 800/160MG TAB PO STA (16:28)
[2017-06-18] MEDS ORDERED: SULF800T23 PO (16:38)
--- NOTE | 2017-06-18 16:41 | EMERGENCY ROOM VISIT NOTE ---
ED Visit Note First contact with patient: 16:13 CHIEF COMPLAINT: Infection of the left hand HISTORY OF PRESENT ILLNESS: This [id number] female patient presents to the emergency department approximately 1 week after they noticed a hard, red , tender area on the dorsal aspect of the left hand. She states she was seen by her primary care provider last or Saturday and was started on Keflex. She states she has had no pain medication. She has been taking the Keflex as prescribed, but overnight noticed the wound becoming larger and more painful. It is slowly getting larger, more painful and tender. No fever, or loss of appetite. There has been no drainage from the area. There was no injury to the area preceding the infection. They rate the pain as sharp and 8/10. Tetanus shot is up to date. They have tried warm soaks and Keflex. The patient is diabetic. The patient has no history of subcutaneous abscesses. REVIEW OF SYSTEMS: A 10 system review of systems was performed with positives and pertinent negatives listed in the history of present illness. All other systems were reviewed and are negative. ALLERGIES: Lidocaine, azithromycin, tramadol MEDICATIONS: Metformin, aspirin, clopidogrel, lisinopril, gabapentin PMH: Cardiac stents, diabetes, hypertension, hyperlipidemia SOCIAL HISTORY: The patient lives locally with family. She denies drug, alcohol , tobacco use. PHYSICAL EXAM: Vital Signs: Reviewed Nurse's notes, vital signs stable. GENERAL : This is a 37-year-old white female, no acute distress, non toxic in appearance , well-developed well-nourished. SKIN: There is a mildly erythematous indurated area on the dorsal aspect of the left hand, between metatarsals #3 and 4, which measures about 1.5 cm in diameter. It is fluctuant and mobile but there is no pointing or drainage. There is no obvious zone of inflammation around it and no lymphangitis. Capillary refill less than 2 seconds. MUSCULOSKELETAL: There is mild limitation of the range of motion of the left hand due to pain. EMERGENCY DEPARTMENT COURSE: I examined the patient as above. The patient requests pain medication, and has not taken any medication at this time. I offered Tylenol, Motrin, or Toradol and the patient declines, stating "they do nothing for me." The patient is on our no narcotic list here in the ED due to drug-seeking behavior. Due to the location of the cyst and patient's already scheduled appointment with orthopedics on , the lesion will not be incised or drained at this time. I suspect a ganglion cyst vs. subcutaneous cyst /abscess. There is no pointing at this time and the infection does not seem to have spread significantly. The patient will be started on Bactrim to be taken in addition to Keflex. I did consult PDMP and noted that the patient recently was given a prescription for 5 days worth of Tylenol #[address] Bryan. The patient denies picking up this prescription and states she has not taken the medication. She initially denied even obtaining the prescription, but when I discussed with her that PDMP indicates differently, she states she believes a family member who she is living with picked the script up and she has not taken it. I discussed with her that she could use those narcotics to help with pain until she is able to be seen by orthopedics this . The patient was given her first dose of Bactrim while here in the ED and a prescription was sent to the pharmacy. The patient was discharged home in stable condition. I attest that I have personally reviewed the patient's current medication list. Patient was found to have normal blood pressure on screening and does not require follow-up. DIFFERENTIAL DIAGNOSIS: Abscess, cyst, cellulitis, laceration, ganglion cyst, malignancy, and others DIAGNOSIS: Cyst/abscess of the left hand. Problem List Medical Problems: (1) Asthma Status: Chronic (2) Benign hypertension Status: Chronic (3) Deep venous thrombosis Status: Resolved (4) Diabetes mellitus Status: Chronic (5) Dyslipidemia Status: Chronic (6) Kidney stone Status: Resolved Surgical Problems: (1) Cholecystectomy Status: Resolved Current/Historical Medications Scheduled Acetaminophen (Tylenol), 1,000 MG PO prn ud Aspirin (Aspirin Ec), 81 MG PO DAILY Atorvastatin (Lipitor), 80 MG PO HS Clopidogrel (Plavix), 75 MG PO QAM Esomeprazole Magnesium (Nexium), 40 MG PO BID Gabapentin (Neurontin), 600 MG PO TID Lisinopril (Zestril), 10 MG PO DAILY Metformin Hcl (Glucophage Ext Rel), 1,000 MG PO BID Metoprolol Succ (Toprol Xl) (Toprol-Xl), 25 MG PO QAM Nitroglycerin (Nitrostat), 0.4 MG UT PRN Sulfa/Trimethoprim (Bactrim Ds 800MG/160MG), 1 TAB PO BID Scheduled PRN Albuterol Hfa (Ventolin Hfa), 2 PUFFS INH Q6H PRN for SOB/Wheezing Allergies Coded Allergies: Cephalexin (Verified Allergy, Intermediate, YEAST INFECTIONS, 06/02/17) Egg (Verified Allergy, Intermediate, GI UPSET, 06/02/17) Lidocaine (Verified Allergy, Intermediate, HIVES, 06/02/17) Procaine (Verified Allergy, Intermediate, HIVES, 06/02/17) Penicillins (Verified Allergy, Mild, HAD NO PROBLEM WITH ZOSYN, 06/02/17) [place] (Verified Allergy, Mild, HIVES, 06/02/17) Tramadol (Verified Allergy, Unknown, SEIZURES, 06/02/17) Azithromycin (Verified Adverse Reaction, Mild, STOMACH PAINS, 06/02/17) Vital Signs Date Time Temp Pulse Resp B/P (MAP) Pulse Ox O2 Delivery O2 Flow Rate FiO2 06/18/17 16:59 78 20 137/84 96 06/18/17 16:10 37.2 115 20 137/85 99 Room Air Medications Administered Medications (Trade) Dose Ordered Sig/Bonny Route Start Time Stop Time Status Last Admin Dose Admin Trimethoprim/ Sulfamethoxazole (Septra Ds 800/ 160MG Tab) 1 tab NOW STAT PO 06/18/17 16:28 06/18/17 16:30 DC 06/18/17 16:56 1 TAB Departure Information Impression Primary Impression: Abscess of left hand including fingers Dispostion Home / Self-Care Condition GOOD Prescriptions Sulfa/Trimethoprim (Bactrim Ds 800MG/160MG) Tab 1 TAB PO BID for 10 Days, #20 TAB Prov: Dolly Rico PA-C 06/18/17 Referrals Irvin Iverson M.D. (PCP) Patient Instructions ED Cyst Ganglion, [facility] Additional Instructions You were seen and evaluated in the emergency department today for a cyst/ abscess on the left hand. Please continue taking the Keflex as prescribed. Trimethoprim-Sulfamethoxazole(Bactrim DS): Take one pill twice daily for 10 days for your skin infection. All antibiotics can cause diarrhea. If this occurs and you feel worse or it does not resolve in 1-2 days follow up with your doctor or return to the Emergency Department as this could be signs of serious underlying problems. Any medication can cause an allergic reaction, stop the pills immediately and return to the ER for rash, hives, breathing difficulties, or swelling. Take this medication in addition to Keflex. Continue warm soaks and warm compresses to help with discomfort and potentially aid in drainage. You may take the Tylenol #3 you were previously prescribed for pain. Ibuprofen(Motrin, Advil) may be used for fever or pain. Use 600mg every six hours as needed. Take with food. Avoid using more than 2400mg in a 24 hour period. Do not use 2400mg per day for more than three consecutive days without physician direction. Prolonged inappropriate use can lead to stomach upset or ulcers. (AND/OR) Acetaminophen(Tylenol) may be used for fever or pain. Use 1000mg every six hours as needed. Avoid using more than 3000mg in a 24 hour period. Follow-up with orthopedics as previously scheduled on . Return to the emergency department for significantly worsening redness, swelling , pain, purulent drainage, fever, or other concerning symptoms.
[2017-06-18 16:59] VITALS: BP 137/84; PULSE 78; O2SAT 96
== END 2017-06-18 17:00 | disposition home or self-care (01) ==
LOC: C.EDB 16:06 → C.EDD 17:00
DX: L02.512 Cutaneous abscess of left hand (principal); E11.9 Type 2 diabetes mellitus without complications; Z88.1 Allergy status to other antibiotic agents; Z88.4 Allergy status to anesthetic agent; Z88.8 Allergy status to other drugs, medicaments and biological substances; Z79.899 Other long term (current) drug therapy; Z79.82 Long term (current) use of aspirin; Z95.5 Presence of coronary angioplasty implant and graft; I10 Essential (primary) hypertension; E78.5 Hyperlipidemia, unspecified; J45.909 Unspecified asthma, uncomplicated; Z87.442 Personal history of urinary calculi; Z90.49 Acquired absence of other specified parts of digestive tract; Z86.718 Personal history of other venous thrombosis and embolism; Z79.02 Long term (current) use of antithrombotics/antiplatelets; Z79.84 Long term (current) use of oral hypoglycemic drugs

== ENCOUNTER 2017-08-22 23:07 | Emergency (ER) | payer OTHER ==
[~2017-08-22] VITALS: Ht 162.6 cm; Wt 73.0 kg
[2017-08-22 23:12] VITALS: TEMP 37; Ht 162.6 cm; Wt 73.0 kg
[2017-08-22] MEDS ORDERED: IBUPROFEN 600 MG TAB PO STA (23:19)
[2017-08-22] MEDS ORDERED: OXYCODONE/ACETAMINOPHEN 5-325 TAB PO ONE (23:30)
[2017-08-22 23:51] VITALS: BP 144/83; PULSE 114; O2SAT 98
--- NOTE | 2017-08-23 00:07 | EMERGENCY ROOM VISIT NOTE ---
History Report prepared by Dottie: Jordan Smith Under the Supervision of: Dr. Johan Che M.D. First contact with patient: 23:15 Chief Complaint: ANKLE PAIN Stated Complaint: ROLLED RT ANKLE TWICE History of Present Illness The patient is a 37 year old female who presents to the Emergency Room with complaints of constant, severe, right ankle pain beginning last night. The patient states she rolled her ankle twice at [employer] yesterday. She reports she took Tylenol 6 hours ago, and it is not helping. The patient notes walking increases her discomfort. She states she has been evaluated by [facility] previously. Source of History: patient Onset: last night Position: ankle (right) Symptom Intensity: severe Timing: constant Modifying Factors (Worsening): movement (walking) Review of Systems See HPI for pertinent positives & negatives. A total of 10 systems reviewed and were otherwise negative. Past Medical & Surgical Medical Problems: (1) Asthma (2) Benign hypertension (3) Chest pain (4) Deep venous thrombosis (5) Diabetes mellitus (6) Dyslipidemia (7) Kidney stone (8) Sepsis Surgical Problems: (1) Cholecystectomy Family History Diabetes mellitus FH: gallbladder disease FH: heart disease FH: lung disease Hypertension Kidney stones Social History Smoking Status: Current Every Day Smoker Alcohol Use: none Drug Use: none Marital Status: single Housing Status: lives with family Occupation Status: unemployed Current/Historical Medications Scheduled Acetaminophen (Tylenol), 1,000 MG PO prn ud Aspirin (Aspirin Ec), 81 MG PO DAILY Atorvastatin (Lipitor), 80 MG PO HS Clopidogrel (Plavix), 75 MG PO QAM Esomeprazole Magnesium (Nexium), 40 MG PO BID Gabapentin (Neurontin), 600 MG PO TID Lisinopril (Zestril), 10 MG PO DAILY Metformin Hcl (Glucophage Ext Rel), 1,000 MG PO BID Metoprolol Succ (Toprol Xl) (Toprol-Xl), 25 MG PO QAM Nitroglycerin (Nitrostat), 0.4 MG UT PRN Scheduled PRN Albuterol Hfa (Ventolin Hfa), 2 PUFFS INH Q6H PRN for SOB/Wheezing Allergies Coded Allergies: Cephalexin (Verified Allergy, Intermediate, YEAST INFECTIONS, 06/02/17) Egg (Verified Allergy, Intermediate, GI UPSET, 06/02/17) Lidocaine (Verified Allergy, Intermediate, HIVES, 06/02/17) Procaine (Verified Allergy, Intermediate, HIVES, 06/02/17) Penicillins (Verified Allergy, Mild, HAD NO PROBLEM WITH ZOSYN, 06/02/17) [place] (Verified Allergy, Mild, HIVES, 06/02/17) Tramadol (Verified Allergy, Unknown, SEIZURES, 06/02/17) Azithromycin (Verified Adverse Reaction, Mild, STOMACH PAINS, 06/02/17) Physical Exam Vital Signs Date Time Temp Pulse Resp B/P (MAP) Pulse Ox O2 Delivery O2 Flow Rate FiO2 08/22/17 23:51 114 18 144/83 98 Room Air 08/22/17 23:12 37.0 108 16 127/86 98 Room Air Physical Exam GENERAL: Awake, alert, well-appearing, in no acute distress HENT: Normocephalic, atraumatic. Oropharynx unremarkable. EYES: Normal conjunctiva. Sclera non-icteric. NECK: Supple. No nuchal rigidity. FROM. No JVD. RESPIRATORY: Clear to auscultation. CARDIAC: Regular rate, normal rhythm. Extremities warm and well perfused. Pulses equal. ABDOMEN: Soft, non-distended. No tenderness to palpation. No rebound or guarding. No masses. RECTAL: Deferred. MUSCULOSKELETAL: Chest examination reveals no tenderness. The back is symmetrical on inspection without obvious abnormality. There is no CVA tenderness to palpation. No joint edema to the rT ankle, Rt foot neurovascularly intact. no swelling, contusions to Rt ankle LOWER EXTREMITIES: Calves are equal size bilaterally and non-tender. No edema. No discoloration. NEURO: Normal sensorium. No sensory or motor deficits noted. SKIN: No rash or jaundice noted. Medical Decision & Procedures ER Provider Diagnostic Interpretation: X-ray results as stated below per interpretation by me: Three view right ankle: No evidence of dislocation, subluxation, or fracture. Medications Administered Medications (Trade) Dose Ordered Sig/Bonny Route Start Time Stop Time Status Last Admin Dose Admin Oxycodone/ Acetaminophen (Percocet 5-325mg Tab) 2 tab NOW ONCE PO 08/22/17 23:30 08/22/17 23:31 DC 08/22/17 23:27 2 TAB Ibuprofen (Motrin Tab) 600 mg NOW STAT PO 08/22/17 23:19 08/22/17 23:20 DC 08/22/17 23:27 600 MG ED Course 2317: Past medical records reviewed. The patient was evaluated in room A10. A complete history and physical examination was performed. 2318: Ordered Ibuprofen 600mg PO 2329: Ordered Oxycodone/Acetaminophen 2tab PO 2348: Upon reexamination the patient is resting. I discussed results and treatment plan with the patient. She verbalizes agreement and understanding. The patient is ready for discharge. Medical Decision Differential diagnosis: Etiologies such as fracture, dislocation, neurovascular compromise, compartment syndrome, soft tissue injury, as well as others were entertained. This is a 37-year-old female who presents the emergency department complaining of right ankle pain. I will note that the patient is on the no narcotic prescription list. In addition she has no evidence of injury to the ankle. X- rays do not show any evidence of dislocation subluxation or fracture. I stressed that the x-rays will be reread by radiologist in the morning and at the patient needs follow-up with orthopedics especially if she is continuing to have pain in a week or so. Patient was given Motrin as per as well as Percocet here in the emergency department. She is placed on crutches as well as an ankle splint. Patient will follow up with orthopedics. Medication Reconcilliation Current Medication List: was personally reviewed by me Blood Pressure Screening Patient's blood pressure: Elevated blood pressure Blood pressure disposition: Referred to PCP Impression Primary Impression: Right ankle pain Scribe Attestation The scribe's documentation has been prepared under my direction and personally reviewed by me in its entirety. I confirm that the note above accurately reflects all work, treatment, procedures, and medical decision making performed by me. Departure Information Dispostion Home / Self-Care Referrals Irvin Iverson M.D. (PCP) Kingsley Wright D.O. Forms HOME CARE DOCUMENTATION FORM, School Instructions, Work Instructions, IMPORTANT VISIT INFORMATION Patient Instructions Ankle Sprain, Crutches Non Weight Bearing Hi, My [facility], ED RICE Additional Instructions Follow up with Dr Wright's office You received narcotic or benzodiazepene medication while in the emergency room today. This is an addictive medication that may cause drowziness as well as constipation. Do not drive, operate heavy machinery, or drink alcohol under the influence of this medication. Take 600 mg Ibuprofen every 6 hours Take 1000 mg Tylenol every 6 hours Radiographs and CTs will be reread by a radiologist in the morning. You have been examined and treated today on an emergency basis only. This is not a substitute for, or an effort to provide, complete comprehensive medical care. It is impossible to recognize and treat all injuries or illnesses in a single emergency department visit. It is therefore important that you follow up closely with Dr Iverson. Call as soon as possible for an appointment. Thank you for your time and consideration. I look forward to speaking with you again soon. Please don't hesitate to call us if you have any questions. Problem Qualifiers Primary Impression: Right ankle pain Chronicity: acute Qualified Codes: M25.571 - Pain in right ankle and joints of right foot
--- NOTE | 2017-08-23 06:38 | DIAGNOSTIC IMAGING REPORT ---
R ANKLE MIN 3 VIEWS ROUTINE HISTORY: 37 years-old Female Pt c/o Rt ankle pain acute right-sided ankle pain COMPARISON: None available TECHNIQUE: 3 views of the right ankle FINDINGS: There is mild circumferential soft tissue swelling about the ankle, greatest anterolaterally without acute fracture, dislocation, osteochondral defect or significant degenerative changes identified. Minimal dorsal marginal spurring about the midfoot with small plantar and Achilles enthesophytes about the calcaneus. No radiopaque foreign body. IMPRESSION: Mild soft tissue swelling without fracture or dislocation. The above report was generated using voice recognition software. It may contain grammatical, syntax or spelling errors. Electronically signed by: Isidro Eli M.D. 08/23/2017 6:36 AM Dictated Date/Time: 08/23/2017 6:35 AM
== END 2017-08-22 23:55 | disposition home or self-care (01) ==
LOC: C.EDB 23:08 → C.EDA 23:55
DX: M25.571 Pain in right ankle and joints of right foot (principal); X50.0XXA Overexertion from strenuous movement or load, initial encounter; Y92.512 Supermarket, store or market as the place of occurrence of the external cause; J45.909 Unspecified asthma, uncomplicated; I10 Essential (primary) hypertension; Z86.718 Personal history of other venous thrombosis and embolism; E11.9 Type 2 diabetes mellitus without complications; E78.5 Hyperlipidemia, unspecified; Z87.442 Personal history of urinary calculi; Z90.49 Acquired absence of other specified parts of digestive tract; Z83.3 Family history of diabetes mellitus; Z82.49 Family history of ischemic heart disease and other diseases of the circulatory system; F17.210 Nicotine dependence, cigarettes, uncomplicated; Z79.82 Long term (current) use of aspirin; Z79.01 Long term (current) use of anticoagulants; Z79.84 Long term (current) use of oral hypoglycemic drugs; Z79.899 Other long term (current) drug therapy; Z88.1 Allergy status to other antibiotic agents; Z88.0 Allergy status to penicillin; Z88.8 Allergy status to other drugs, medicaments and biological substances; Z91.012 Allergy to eggs; Z91.018 Allergy to other foods

== ENCOUNTER 2017-08-29 16:25 | Inpatient (IN) | payer OTHER ==
[~2017-08-29] VITALS: Ht 162.6 cm; Wt 85.7 kg
[~2017-08-29 16:25] MED LIST changes: +ETOMIDATE 2 MG/ML 20 ML VIAL IV ONE; +FENTANYL CITRATE INJ 50 MCG/1 ML 2 ML VIAL IV ONE; +MIDAZOLAM HCL 5 MG/ML 2ML VIAL IV ONE; +SODIUM CHLORIDE 0.9% 10ML FLUSH IV ONE; +SUCCINYLCHOLINE CHLORIDE 20 MG/ML 10 ML VIAL IV ONE
[2017-08-29] MEDS ORDERED: SODIUM CHLORIDE 0.9% IV STA (16:58)
[2017-08-29] MEDS ORDERED: VANCOMYCIN IV STA (16:58)
[2017-08-29] MEDS ORDERED: CIPROFLOXACIN 400MG / 200ML D5W IV STA (16:58)
[2017-08-29] MEDS ORDERED: VANCOMYCIN CONSULT ACTIVE PRN ×2 (17:00→19:15)
[2017-08-29 17:15] LABS: BASO % 0.2 %; BASO ABS # 0.03 K/uL (0-0.2); EOS % 0.2 %; EOS ABS # 0.03 K/uL (0-0.5); HEMOGLOBIN 12.3 g/dL (12.0-16.0); IG# 0.04 K/uL (0.00-0.02); LYMPH % 4.4 %; LYMPH ABS # 0.57 K/uL (1.2-3.4); MEAN CELL VOLUME 86.9 fL (80-100); MEAN CORPUSCULAR HEMOGLOBIN 28.9 pg (25-34); MEAN CORPUSCULAR HGB CONC 33.2 g/dl (32-36); MEAN PLATELET VOLUME 10.4 fL (7.4-10.4); MONO % 1.6 %; MONO ABS # 0.21 K/uL (0.11-0.59); NEUT % 93.3 %; NEUT ABS # 11.97 K/uL (1.4-6.5); PLATELET COUNT 254 K/uL (130-400); RED CELL DISTRIBUTION WIDTH CV 15.6 % (11.5-14.5); WHITE BLOOD COUNT 12.85 K/uL (4.8-10.8)
--- NOTE | 2017-08-29 17:23 | DIAGNOSTIC IMAGING REPORT ---
SINGLE VIEW CHEST CLINICAL HISTORY: Fever. Sepsis. FINDINGS: An AP, portable, upright chest radiograph is compared to study dated 11/10/2016 and correlated with chest CT dated 11/09/2016. The heart appears enlarged. Mild pulmonary vascular congestion is suggested. Diffuse interstitial thickening and nodularity is noted. No lobar consolidation or large pleural effusion is identified. No pneumothorax is seen. The bony thorax is grossly intact. IMPRESSION: 1. The heart appears enlarged and mild pulmonary vascular congestion is suggested. 2. Diffuse interstitial thickening and nodularity is identified, which could represent a component of interstitial edema versus an infectious/inflammatory pneumonitis. Clinical correlation will be required. Electronically signed by: Ja Villanueva M.D. 08/29/2017 5:22 PM Dictated Date/Time: 08/29/2017 5:20 PM
[2017-08-29 17:25] LABS: INR 1.1 (0.9-1.1); PTT PATIENT 29.6 SECONDS (21.0-31.0)
[2017-08-29 17:34] LABS: CALCIUM 8.8 mg/dl (8.5-10.1); CREATININE 1.39 mg/dl (0.60-1.20); POTASSIUM 3.5 mmol/L (3.5-5.1)
[2017-08-29 17:37] LABS: TOTAL PROTEIN 6.8 gm/dl (6.4-8.2)
[2017-08-29] MEDS ORDERED: VANCOMYCIN IV 1,750 MG in SODIUM CHLORIDE 0.9% 500ML 500 ML IV STA (17:37)
[2017-08-29] MEDS ORDERED: ACETAMINOPHEN 500 MG TAB PO STA (17:46)
[2017-08-29] MEDS ORDERED: SODIUM CHLORIDE 0.9% 1000ML 1,000 ML IV STA ×2 (17:46)
[2017-08-29] MEDS ORDERED: CRAN1TAB PO (17:50)
[2017-08-29] MEDS ORDERED: MAGNESIUM HYDROXIDE SUSP 30 ML UDC PO PRN (19:00)
[2017-08-29] MEDS ORDERED: ONDANSETRON INJ 2 MG/ML 2 ML VIAL IV PRN (19:00)
[2017-08-29] MEDS ORDERED: DKA GOAL RANGE 150-250 mg/dl 1 EA ONE (19:00)
[2017-08-29] MEDS ORDERED: ICU PROTOCOL FOR HYPERGLYCEMIA PRN (19:00)
[2017-08-29] MEDS ORDERED: SEVERE STRESS LEVEL ONE (19:00)
[2017-08-29] MEDS ORDERED: LORAZEPAM 0.5 MG TAB PO PRN (19:00)
[2017-08-29] MEDS ORDERED: ALUMINUM/MAGNESIUM/SIMETH (MAALOX MAX) 30 ML UDC PO PRN (19:00)
[2017-08-29] MEDS ORDERED: INSULIN IV INFUSION PROTOCOL STA (19:00)
[2017-08-29] MEDS ORDERED: CONSULT PHARMACY STA (19:11)
[2017-08-29] MEDS ORDERED: LACTATED RINGER'S 1000ML 1,000 ML IV ONE (19:11)
[2017-08-29] MEDS ORDERED: LACTATED RINGER'S 1000ML 1,000 ML IV SCH (19:30)
--- NOTE | 2017-08-29 19:52 | History and Physical ---
History & Physical Date & Time of Service: August 29, 2017 at 19:52 Chief Complaint: Fever 103 Primary Care Physician: Irvin Iverson M.D. History of Present Illness Source: patient This is a 37-year-old female with past medical history of poorly controlled diabetes, coronary artery disease status post PTCA, hypertension, dyslipidemia, asthma history of lower extremity DVT off anticoagulation Presented to ER with complaint of fever chills Patient noticed a small boil/abscess on her right wrist which has progressively got larger , denies of any trauma or insect bite Was seen at [facility]- ordered p.o. Bactrim she took 2 tablets did not had any improvement of the pain and swelling on right wrist Developed cough/ fever /chills/ headache In ER patient was febrile/tachycardic/hypotensive/leukocytosis of 12 K Had I & D done of right wrist abscess- drainage of pus Past Medical/Surgical History Medical Problems: (1) Abdominal pain (2) Abscess of left hand including fingers (3) Abscess of right forearm (4) Abscess or cellulitis of scalp (5) Acute otitis media, left (6) Acute pyelonephritis (7) Acute sinusitis (8) Acute sinusitis (9) Allergic reaction (10) Anemia (11) Ankle sprain (12) Asthma (13) Back pain (14) Back strain (15) Benign hypertension (16) Bronchitis (17) Bronchitis (18) Bursitis of left shoulder (19) Cellulitis of buttock (20) Cellulitis of groin, right (21) Chest pain (22) Colitis (23) Conjunctivitis (24) Contusion, hip (25) Deep venous thrombosis (26) Diabetes mellitus (27) Dyslipidemia (28) Elbow contusion (29) Elbow injury (30) Elbow pain (31) Fall (32) Ganglion cyst of tendon sheath of left hand (33) H/O scabies (34) H/O scabies (35) Hand injury (36) Headache (37) Hepatosplenomegaly (38) Infectious colitis (39) Kidney stone (40) Knee pain (41) Knee pain (42) Left against medical advice (43) Left ankle sprain (44) Left groin pain (45) Left rib fracture (46) Left shoulder pain (47) Left thumb sprain (48) Left thumb sprain (49) Leg swelling (50) Low back pain (51) Near syncope (52) Non-STEMI (non-ST elevated myocardial infarction) (53) Non-STEMI (non-ST elevated myocardial infarction) (54) Perianal cellulitis (55) Periorbital cellulitis of right eye (56) Pharyngitis (57) Pneumonia (58) Pneumonitis (59) Rash (60) Renal failure (61) Right ankle pain (62) Right ankle pain (63) Right arm pain (64) Right hand pain (65) Scalp cyst (66) Sepsis (67) Shoulder pain (68) Sinusitis (69) Soft tissue abscess of suprapubic region (70) Sore throat (71) Sprain of knee (72) URI (upper respiratory infection) (73) Urinary tract infection Surgical Problems: (1) Cholecystectomy Family History Diabetes mellitus FH: gallbladder disease FH: heart disease FH: lung disease Hypertension Kidney stones Social History Smoking Status: Current Every Day Smoker Drug Use: none Marital Status: single Housing status: lives with family Occupational Status: unemployed Immunizations History of Influenza Vaccine: N/A History of Tetanus Vaccine?: Yes Tetanus Immunization Date: Aug 16, 2010 History of Pneumococcal: No History of Hepatitis B Vaccine: No Multi-Drug Resistant Organisms History of MDRO: No Allergies Coded Allergies: Cephalexin (Verified Allergy, Intermediate, YEAST INFECTIONS, 08/29/17) Egg (Verified Allergy, Intermediate, GI UPSET, 08/29/17) Lidocaine (Verified Allergy, Intermediate, HIVES, 08/29/17) Procaine (Verified Allergy, Intermediate, HIVES, 08/29/17) Penicillins (Verified Allergy, Mild, HAD NO PROBLEM WITH ZOSYN, 08/29/17) Argyle (Verified Allergy, Mild, HIVES, 08/29/17) Tramadol (Verified Allergy, Unknown, SEIZURES, 08/29/17) Azithromycin (Verified Adverse Reaction, Mild, STOMACH PAINS, 08/29/17) Home Medications Scheduled Acetaminophen (Tylenol), 1,000 MG PO prn ud Aspirin (Aspirin Ec), 81 MG PO DAILY Atorvastatin (Lipitor), 80 MG PO HS Clopidogrel (Plavix), 75 MG PO QAM Cranberry (Vaccinium Macrocarp (Cranberry), 1 TAB PO UD Esomeprazole Magnesium (Nexium), 40 MG PO BID Gabapentin (Neurontin), 600 MG PO TID Lisinopril (Zestril), 10 MG PO DAILY Metformin Hcl (Glucophage Ext Rel), 1,000 MG PO BID Metoprolol Succ (Toprol Xl) (Toprol-Xl), 25 MG PO QAM Nitroglycerin (Nitrostat), 0.4 MG UT PRN Scheduled PRN Albuterol Hfa (Ventolin Hfa), 2 PUFFS INH Q6H PRN for SOB/Wheezing Review of Systems Constitutional: + fever, + chills, + sweats, + weakness, + fatigue Respiratory: + cough, + sputum, + shortness of breath Abdomen: + nausea Musculoskeletal: + problem reported (Abscess in right wrist) Physical Exam Vital Signs Date Time Temp Pulse Resp B/P (MAP) Pulse Ox O2 Delivery O2 Flow Rate FiO2 08/29/17 19:44 112 18 105/64 97 08/29/17 19:18 112 18 105/64 97 Nasal Cannula 2.0 08/29/17 18:55 87 Room Air 08/29/17 18:40 116 18 103/59 93 Room Air 08/29/17 17:55 37.5 08/29/17 17:20 Room Air 08/29/17 17:02 135 08/29/17 16:30 38.4 146 20 118/69 95 Room Air General Appearance: no apparent distress Head: normocephalic, atraumatic Eyes: sclerae normal Neck: thyroid normal, no JVD Respiratory/Chest: no respiratory distress, no accessory muscle use, + crackles Cardiovascular: + tachycardia, + systolic murmur Abdomen/GI: normal bowel sounds, non tender, soft Extremities/Musculoskelatal: + pertinent finding (2.3 cm abscesses in her right wrist/with surrounding erythema and tenderness) Neurologic/Psych: no motor/sensory deficits, alert, oriented x 3 Diagnostics Laboratory Results Results Past 24 Hours Test 08/29/17 16:55 08/29/17 17:25 Range/Units White Blood Count 12.85 4.8-10.8 K/uL Red Blood Count 4.26 4.2-5.4 M/uL Hemoglobin 12.3 12.0-16.0 g/dL Hematocrit 37.0 37-47 % Mean Corpuscular Volume 86.9 80-100 fL Mean Corpuscular Hemoglobin 28.9 25-34 pg Mean Corpuscular Hemoglobin Concent 33.2 32-36 g/dl Platelet Count 254 130-400 K/uL Mean Platelet Volume 10.4 7.4-10.4 fL Neutrophils (%) (Auto) 93.3 % Lymphocytes (%) (Auto) 4.4 % Monocytes (%) (Auto) 1.6 % Eosinophils (%) (Auto) 0.2 % Basophils (%) (Auto) 0.2 % Neutrophils # (Auto) 11.97 1.4-6.5 K/uL Lymphocytes # (Auto) 0.57 1.2-3.4 K/uL Monocytes # (Auto) 0.21 0.11-0.59 K/uL Eosinophils # (Auto) 0.03 0-0.5 K/uL Basophils # (Auto) 0.03 0-0.2 K/uL RDW Standard Deviation 50.0 36.4-46.3 fL RDW Coefficient of Variation 15.6 11.5-14.5 % Immature Granulocyte % (Auto) 0.3 % Immature Granulocyte # (Auto) 0.04 0.00-0.02 K/uL Erythrocyte Sedimentation Rate 31 0-21 mm/hr Prothrombin Time 12.0 9.0-12.0 SECONDS Prothromb Time International Ratio 1.1 0.9-1.1 Activated Partial Thromboplast Time 29.6 21.0-31.0 SECONDS Partial Thromboplastin Ratio 1.1 Sodium Level 132 136-145 mmol/L Potassium Level 3.5 3.5-5.1 mmol/L Chloride Level 103 98-107 mmol/L Carbon Dioxide Level 18 21-32 mmol/L Anion Gap 11.0 3-11 mmol/L Blood Urea Nitrogen 12 7-18 mg/dl Creatinine 1.39 0.60-1.20 mg/dl Est Creatinine Clear Calc Drug Dose 59.1 ml/min Estimated GFR () 55.2 Estimated GFR (Non- 47.6 BUN/Creatinine Ratio 8.6 10-20 Random Glucose 257 70-99 mg/dl Calcium Level 8.8 8.5-10.1 mg/dl Total Bilirubin 0.8 0.2-1 mg/dl Direct Bilirubin 0.6 0-0.2 mg/dl Aspartate Amino Transf (AST/SGOT) 39 15-37 U/L Alanine Aminotransferase (ALT/SGPT) 26 12-78 U/L Alkaline Phosphatase 124 45-117 U/L C-Reactive Protein 10.80 0-0.29 mg/dl Total Protein 6.8 6.4-8.2 gm/dl Albumin 3.0 3.4-5.0 gm/dl Venous Blood pH 7.38 7.36-7.41 Venous Blood Partial Pressure CO2 34 38.0-50.0 mmHg Venous Blood Partial Pressure O2 29 mmHg Venous Blood HCO3 20 mmol/L Venous Blood Oxygen Saturation < 60.0 % Venous Blood Base Excess -5.0 mEq/L Lactic Acid Level 5.0 0.4-2.0 mmol/L Microbiology Results 08/29/17 Blood Culture, Received Pending 08/29/17 Blood Culture, Received Pending Diagnostic Radiology CHEST XRAY : IMPRESSION: 1. The heart appears enlarged and mild pulmonary vascular congestion is suggested. 2. Diffuse interstitial thickening and nodularity is identified, which could represent a component of interstitial edema versus an infectious/inflammatory pneumonitis. Clinical correlation will be required. Impression Assessment and Plan SEVERE SEPSIS: Meets criteria for severe sepsis: Presented with leukocytosis/fever temp 38 degree/tachycardia/hypotension/elevated lactic acid~5 Possible source of infection: Cellulitis/infected wound on right lower arm Status post I and d in ER: With drainage of approximately 3 cc of pus Patient started with fluid resuscitation 30 mL/kg per sepsis protocol Given 2 L normal saline bolus in ER Ordered for 1 more liter of IV LR bolus in 1 hour Then continue IV fluids LR at rate 200 mL/h patient is going to be admitted to ICU for close monitoring of hemodynamics Repeat lactic acid ordered in 4 hours Lactic acid/PRP will be continued to monitor every 4 hours to normalize Started with empiric antibiotic with IV vancomycin/Azactam within (patient is allergic to penicillin) Order for wound culture Blood cultures/urine culture obtained Requested ID evaluation HYPOTENSION Due to above Patient is continued with IV fluid resuscitation per sepsis protocol Admitted to ICU Consider IV pressors if blood pressure remains low after adequate fluid bolus Hold JEFFERY inhibitor Lopressor continued with holding parameters POORLY CONTROLLED DIABETES BSG elevated 237 With normal bicarb/no anion gap Hold metformin Patient started with IV insulin per ICU protocol Pharmacy consulted for glycemic management Order for hemoglobin A1c ACUTE RENAL FAILURE Due to severe sepsis/hypotension/dehydration Continue IV fluids resuscitation Order to monitor basic metabolic panel every 4 hours may need nephrology consultation If renal function does not improve after correction of volume depletion Order to hold JEFFERY inhibitor Avoid NSAID use/contrast studies HISTORY OF CORONARY ARTERY DISEASE /STATUS POST STENT patient denies of any chest pain chest heaviness or anginal symptoms We will continue with aspirin Plavix, beta-vijay with holding parameters JEFFERY inhibitor on hold for AJIT/hypotension HYPONATREMIA Due to dehydration/volume loss due to severe sepsis Continue IV fluids Monitor PRP HYPOXEMIA/PNEUMONIA Chest x-ray shows diffuse interstitial thickening/nodularity which could represent a component of interstitial edema versus an infectious/inflammatory pneumonitis Patient reports of cough for last 3-4 days On empiric antibiotic Continue oxygen supplementation As needed nebs Repeat chest x-ray in the next 24 hours Full code: Discussed with patient DVT prophylaxis: Subcu heparin Disposition: Expected to be discharged home when medically stable Level of Care Critical Care Resuscitation Status FULL RESUSCITATION VTE Prophylaxis Risk Level: Moderate Given or contraindicated: Unfractionated heparin SQ Additional Copies To Irvin Iverson M.D.
[2017-08-29] MEDS ORDERED: CONSULT PHARMACY PRN (20:15)
[2017-08-29] MEDS ORDERED: NovoLIN R BOLUS FROM BAG IV ONE (20:30)
[2017-08-29] MEDS ORDERED: AZTREONAM IV 2,000 MG in DEXTROSE 5% 100ML 100 ML IV SCH (20:45)
--- NOTE | 2017-08-29 20:54 | Pharmacy Progress Note ---
Pharmacy Antibiotic Consult Date of Service: August 29, 2017. Pharmacy Dosing Scope Pharmacy is consulted to initiate vancomycin IV dosing therapy, order appropriate labs and adjust drug dose/frequency. Subjective The patient is a 37 year old female admitted on August 29, 2017 at 19:10. Objective Height (Feet): 5 Height (Inches): 4.00 Weight (Kilograms): 90.000 Lab Results (24hrs): Test 08/29/17 16:55 08/29/17 17:25 08/29/17 20:00 White Blood Count 12.85 K/uL (4.8-10.8) Red Blood Count 4.26 M/uL (4.2-5.4) Hemoglobin 12.3 g/dL (12.0-16.0) Hematocrit 37.0 % (37-47) Mean Corpuscular Volume 86.9 fL (80-100) Mean Corpuscular Hemoglobin 28.9 pg (25-34) Mean Corpuscular Hemoglobin Concent 33.2 g/dl (32-36) Platelet Count 254 K/uL (130-400) Mean Platelet Volume 10.4 fL (7.4-10.4) Neutrophils (%) (Auto) 93.3 % Lymphocytes (%) (Auto) 4.4 % Monocytes (%) (Auto) 1.6 % Eosinophils (%) (Auto) 0.2 % Basophils (%) (Auto) 0.2 % Neutrophils # (Auto) 11.97 K/uL (1.4-6.5) Lymphocytes # (Auto) 0.57 K/uL (1.2-3.4) Monocytes # (Auto) 0.21 K/uL (0.11-0.59) Eosinophils # (Auto) 0.03 K/uL (0-0.5) Basophils # (Auto) 0.03 K/uL (0-0.2) RDW Standard Deviation 50.0 fL (36.4-46.3) RDW Coefficient of Variation 15.6 % (11.5-14.5) Immature Granulocyte % (Auto) 0.3 % Immature Granulocyte # (Auto) 0.04 K/uL (0.00-0.02) Erythrocyte Sedimentation Rate 31 mm/hr (0-21) Prothrombin Time 12.0 SECONDS (9.0-12.0) Prothromb Time International Ratio 1.1 (0.9-1.1) Activated Partial Thromboplast Time 29.6 SECONDS (21.0-31.0) Partial Thromboplastin Ratio 1.1 Sodium Level 132 mmol/L (136-145) Potassium Level 3.5 mmol/L (3.5-5.1) Chloride Level 103 mmol/L (98-107) Carbon Dioxide Level 18 mmol/L (21-32) Anion Gap 11.0 mmol/L (3-11) Blood Urea Nitrogen 12 mg/dl (7-18) Creatinine 1.39 mg/dl (0.60-1.20) Est Creatinine Clear Calc Drug Dose 59.1 ml/min Estimated GFR () 55.2 Estimated GFR (Non- 47.6 BUN/Creatinine Ratio 8.6 (10-20) Random Glucose 257 mg/dl (70-99) Calcium Level 8.8 mg/dl (8.5-10.1) Total Bilirubin 0.8 mg/dl (0.2-1) Direct Bilirubin 0.6 mg/dl (0-0.2) Aspartate Amino Transf (AST/SGOT) 39 U/L (15-37) Alanine Aminotransferase (ALT/SGPT) 26 U/L (12-78) Alkaline Phosphatase 124 U/L (45-117) C-Reactive Protein 10.80 mg/dl (0-0.29) Total Protein 6.8 gm/dl (6.4-8.2) Albumin 3.0 gm/dl (3.4-5.0) Procalcitonin 8.01 ng/ml (0-0.5) Venous Blood pH 7.38 (7.36-7.41) Venous Blood Partial Pressure CO2 34 mmHg (38.0-50.0) Venous Blood Partial Pressure O2 29 mmHg Venous Blood HCO3 20 mmol/L Venous Blood Oxygen Saturation < 60.0 % Venous Blood Base Excess -5.0 mEq/L Lactic Acid Level 5.0 mmol/L (0.4-2.0) Micro Results: Item Value Date Time MRSA DNA Surveillance Screen Received 08/29/172029 Nasal Pending Blood Culture Received 08/29/17 1725 Blood Pending Blood Culture Received 08/29/17 1655 Blood Pending Assessment & Plan Patient started on vancomycin and aztreonam after presenting with fever. Per physician note possible source of infection considering skin/bone/joint. Blood cultures x 2 are pending. MRSA nasal swab pending. Vancomycin: * LD of vancomycin 1750 mg (~20 mg/kg) iv x 1 given in the ED * Will start MD of vancomycin 1250 mg (~14 mg/kg) iv q 14 hr to achieve an estimated trough ~15-20 mcg/ml - will start MD slightly early since not full loading dose given * Baseline Scr closer 1.0 mg/dL - may need to adjust maintenance dose if Scr continues to improve; will order trough if vancomycin is to be continued Pharmacy will continue to follow and will adjust dose/frequency as necessary. Thank you
[2017-08-29 21:00] VITALS: BP 99/65; PULSE 104; TEMP 36; O2SAT 91; BMI 33.5
[2017-08-29] MEDS ORDERED: GLUCOSE 40% GEL 15 GM TUBE PO PRN (21:00)
[2017-08-29] MEDS ORDERED: CARBOHYDRATES FOR HYPOGLYCEMIA PO PRN (21:00)
[2017-08-29] MEDS ORDERED: DEXTROSE 50% 50 ML SYR IV PRN (21:00)
[2017-08-29] MEDS ORDERED: GLUCAGON FOR INJ 1 MG VIAL IM PRN (21:00)
[2017-08-29] MEDS ORDERED: GLUCOSE 10 TABS/TUBE PO PRN (21:00)
[2017-08-29] MEDS: INSULIN REGULAR 250 UNITS in SODIUM CHLORIDE 0.9% 250ML 250 ML IV SCH (21:11)
[2017-08-29] MEDS: HEPARIN SOD 5000 UNIT/0.5 ML CARP SQ SCH (21:20)
[2017-08-29 21:42] LABS: CALCIUM 7.6 mg/dl (8.5-10.1); CREATININE 1.06 mg/dl (0.60-1.20); POTASSIUM 3.9 mmol/L (3.5-5.1)
[2017-08-29] MEDS ORDERED: NITROGLYCERIN 0.4 MG SL PER TAB CHARGE UT PRN (21:45)
[2017-08-29] MEDS ORDERED: ALBUTEROL HFA 8 GM INHALER INH PRN (21:45)
[2017-08-29] MEDS ORDERED: PHARMACY GLYCEMIC MGMT CONSULT PRN (21:57)
[2017-08-29 22:00] VITALS: BP 99/65; PULSE 103; O2SAT 90
[2017-08-29] MEDS ORDERED: ATORVASTATIN 40 MG TAB PO ONE (22:00)
[2017-08-29] MEDS: INSULIN ASPART 100 UNITS/ML 3 ML PEN SC SCH (22:05)
[2017-08-29] MEDS: IMIPENEM-CILASTATIN 500 MG in DEXTROSE 5% 100ML 100 ML IV SCH (22:28)
[2017-08-29 23:58] LABS: CALCIUM 7.6 mg/dl (8.5-10.1); CREATININE 1.11 mg/dl (0.60-1.20)
[2017-08-29 23:59] VITALS: O2SAT 92
[2017-08-30] VITALS (25 sets, daily range): BP systolic 87–125; BP diastolic 51–83; PULSE 86–114; TEMP 36.6–36.9; O2SAT 86–100; BMI 34.7
--- NOTE | 2017-08-30 00:07 | Critical Care Consultation ---
Critical Care Consultation Date of Consultation: August 29, 2017. Attending Physician: Orlin Green M.D. Reason for Consultation: 37-year-old female with a significant past medical history for multiple recurrent skin infections as well as coronary artery disease, hypertension, and diabetes who presents with sepsis with presumed association to new abscess formation to the RIGHT wrist. Patient requiring close hemodynamic monitoring as well as close evaluation of oxygenation status with new O2 requirement. History of Present Illness This document reflects initial patient encounter date of 08/29/2017. Patient is a 37-year-old female with a significant past medical history of COPD , coronary artery disease, ACS, hypertension, diabetes mellitus, and recurrent skin infections who was admitted today secondary to sepsis from presumed skin stores. Patient has had an area of redness and induration to the RIGHT wrist for the past 4 days. She saw her primary care provider yesterday who placed her on Bactrim. She has taken 3 doses of the Bactrim, but reports feeling worse. Earlier today, the patient developed lightheadedness as well as cough and tachycardia shortly after taking her antibiotic. She took her temperature which was found to be 104F. At that point, she did elect to present to the emergency department. While in the emergency department, she received 2 L of normal saline, 1 g of Tylenol, IV vancomycin, and IV Cipro. She was found to have a slight leukocytosis as well as elevation in ESR and sed rate. Lactic acid was elevated at greater than 5 and pro-calcitonin was 8.01. She did have a slight AK I with a creatinine of 1.39. In addition, her blood glucose was moderately elevated at 257. She was started on an insulin drip in the emergency department by hospitalist and placed on aztreonam. She was transferred to the ICU for continued management. On evaluation, the patient is resting comfortably. She complains of slight headache which she reports is not completely uncommon for her. This is not the worst headache of her life. She complains of pain to the RIGHT wrist which she reports developed approximately 4 days ago. She does report a nonproductive cough that started today. She is a daily smoker. She has a significant past medical history of asthma. Despite this, she denies any worsening shortness of breath, pleuritic pain, or chest pain in general. She denies any hemoptysis. She reports no recent long distance travel. She reports a significant family history of pulmonary emboli as her mother had recurrence. She reports a personal history of DVT during . She has reported pain and swelling to the lower extremities bilaterally. She currently denies any blurry vision, double vision, slurred speech, facial droop, unilateral weakness/numbness, chest pain, palpitations, shortness of breath, nausea, vomiting, abdominal pain , hematochezia, melena, hematuria, or dysuria. Patient lives at home with family. She denies any other illicit drug use. She denies significant alcohol use. Past Medical/Surgical History Medical Problems: (1) Asthma (2) Benign hypertension (3) Chest pain (4) Deep venous thrombosis (5) Diabetes mellitus (6) Dyslipidemia (7) Kidney stone (8) Sepsis Surgical Problems: (1) Cholecystectomy Family History Diabetes mellitus FH: gallbladder disease FH: heart disease FH: lung disease Hypertension Kidney stones Social History Smoking Status: Current Every Day Smoker Smokeless Tobacco Use: No Alcohol Use: none Drug Use: none Marital Status: single Housing Status: lives with family Occupation Status: unemployed Allergies Coded Allergies: Cephalexin (Verified Allergy, Intermediate, YEAST INFECTIONS, 08/29/17) Egg (Verified Allergy, Intermediate, GI UPSET, 08/29/17) Lidocaine (Verified Allergy, Intermediate, HIVES, 08/29/17) Procaine (Verified Allergy, Intermediate, HIVES, 08/29/17) Penicillins (Verified Allergy, Mild, HAD NO PROBLEM WITH ZOSYN, 08/29/17) Dos Rios (Verified Allergy, Mild, HIVES, 08/29/17) Tramadol (Verified Allergy, Unknown, SEIZURES, 08/29/17) Azithromycin (Verified Adverse Reaction, Mild, STOMACH PAINS, 08/29/17) Home Medications Scheduled Acetaminophen (Tylenol), 1,000 MG PO prn ud Aspirin (Aspirin Ec), 81 MG PO DAILY Atorvastatin (Lipitor), 80 MG PO HS Clopidogrel (Plavix), 75 MG PO QAM Cranberry (Vaccinium Macrocarp (Cranberry), 1 TAB PO UD Esomeprazole Magnesium (Nexium), 40 MG PO BID Gabapentin (Neurontin), 600 MG PO TID Lisinopril (Zestril), 10 MG PO DAILY Metformin Hcl (Glucophage Ext Rel), 1,000 MG PO BID Metoprolol Succ (Toprol Xl) (Toprol-Xl), 25 MG PO QAM Nitroglycerin (Nitrostat), 0.4 MG UT PRN Scheduled PRN Albuterol Hfa (Ventolin Hfa), 2 PUFFS INH Q6H PRN for SOB/Wheezing Current Inpatient Medications Current Inpatient Medications Medications (Trade) Dose Ordered Sig/Bonny Route Start Time Stop Time Status Last Admin Dose Admin Heparin Sodium (Porcine) (Heparin Sq 5000 Unit/0.5ml) 5,000 unit Q8H SQ 08/29/17 22:00 09/28/17 21:59 08/29/17 21:20 5,000 UNIT Acetaminophen (Tylenol Tab) 650 mg Q4H PRN PO 08/29/17 19:00 09/28/17 18:59 Lorazepam (Ativan Tab) 0.5 mg Q4H PRN PO 08/29/17 19:00 09/28/17 18:59 Al Hydrox/Mg Hydrox/Simethicone (Maalox Max Susp) 15 ml Q4H PRN PO 08/29/17 19:00 09/28/17 18:59 Magnesium Hydroxide (Milk Of Magnesia Susp) 30 ml Q12H PRN PO 08/29/17 19:00 09/28/17 18:59 Ondansetron HCl (Zofran Inj) 4 mg Q6H PRN IV 08/29/17 19:00 09/28/17 18:59 Pantoprazole Sodium (Protonix Tab) 40 mg DAILY PO 08/30/17 09:00 09/29/17 08:59 Miscellaneous Information (Icu Protocol For Hyperglycemia) 1 ea PRN PRN N/A 08/29/17 19:00 08/31/17 18:59 Insulin Aspart (novoLOG ASPART) SLIDING SCALE PCHS SC 08/29/17 21:00 09/28/17 20:59 08/29/17 22:05 8 UNITS Miscellaneous Information (Pharmacy Consult) 1 ea UD PRN N/A 08/29/17 20:15 09/28/17 20:14 Vancomycin HCl 1250 mg/Sodium Chloride 275 ml @ 125 mls/hr Q14H IV 08/30/17 06:00 09/13/17 05:59 Miscellaneous Information (Consult) 1 ea UD PRN N/A 08/29/17 19:15 09/28/17 19:14 Lactated Ringer's 1,000 ml @ 100 mls/hr Q10H IV 08/29/17 19:30 09/28/17 19:29 08/29/17 21:14 200 MLS/HR Insulin Human Regular 250 units/ Sodium Chloride 252.5 ml @ 0 mls/hr Q24H IV 08/29/17 20:30 09/28/17 20:29 08/29/17 21:11 3.4 MLS/HR Glucose (Glucose 40% Gel) 15-30 GRAMS 15 GRAMS... UD PRN PO 08/29/17 21:00 09/28/17 20:59 Glucose (Glucose Chew Tab) 4-8 Tablets 4 Tabl... UD PRN PO 08/29/17 21:00 09/28/17 20:59 Dextrose (Dextrose 50% 50ML Syringe) 25-50ML 25ML FOR ... UD PRN IV 08/29/17 21:00 09/28/17 20:59 Glucagon (Glucagon Inj) 1 mg UD PRN IM 08/29/17 21:00 09/28/17 20:59 Carbohydrates (Carbohydrates For Hypoglycemia) 15-30 GRAMS 15 grams if BSG 54-69... UD PRN PO 08/29/17 21:00 09/28/17 20:59 Albuterol (Ventolin Hfa Inhaler) 2 puffs Q6H PRN INH 08/29/17 21:45 09/28/17 21:44 Aspirin (Ecotrin Tab) 81 mg DAILY PO 08/30/17 09:00 09/29/17 08:59 Atorvastatin Calcium (Lipitor Tab) 80 mg HS PO 08/30/17 21:00 09/29/17 20:59 Clopidogrel Bisulfate (plAVix TAB) 75 mg QAM PO 08/30/17 09:00 09/29/17 08:59 Gabapentin (Neurontin Tab) 600 mg TID PO 08/30/17 09:00 09/29/17 08:59 Metoprolol Succinate (Toprol Xl Tab) 25 mg QAM PO 08/30/17 09:00 09/29/17 08:59 Nitroglycerin (Nitrostat Tab) 0.4 mg UD PRN UT 08/29/17 21:45 09/28/17 21:44 Imipenem/ Cilastatin Sodium 500 mg/Dextrose 120 ml @ 100 mls/hr Q6H IV 08/29/17 22:00 09/08/17 21:59 08/29/17 22:28 100 MLS/HR Miscellaneous Information (Consult Glycemic Management Pharmacy) 1 ea UD PRN N/A 08/29/17 21:57 09/28/17 21:56 Review of Systems A complete 10-point Review of Systems was discussed with the patient, with pertinent positives and negatives listed in the History of Present Illness. All remaining Review of Systems questions can be considered negative unless otherwise specified. Physical Exam Date Time Temp Pulse Resp B/P (MAP) Pulse Ox O2 Delivery O2 Flow Rate FiO2 08/29/17 22:00 103 22 99/65 (76) 90 Nasal Cannula 2.0 08/29/17 21:00 36.0 104 18 99/65 91 Room Air 08/29/17 19:44 112 18 105/64 97 08/29/17 19:18 112 18 105/64 97 Nasal Cannula 2.0 08/29/17 18:55 87 Room Air 08/29/17 18:40 116 18 103/59 93 Room Air 08/29/17 17:55 37.5 08/29/17 17:20 Room Air 08/29/17 17:02 135 08/29/17 16:30 38.4 146 20 118/69 95 Room Air VITAL SIGNS - Vital signs and nursing notes were reviewed. GENERAL - [id number] female appearing much older than her stated age who is in no acute distress. Communicates well with provider and answers questions appropriately. SKIN - I&D site noted to the ventral surface of the distal RIGHT wrist overlying the ulnar surface. No significant surrounding erythema, edema, or ecchymosis present. No lymphangitic streaking present. HEAD - NC/AT. EYES - PERRL with EOMI bilaterally. Sclera anicteric. EARS - No deformities of external structures noted on gross examination bilaterally. NOSE - Midline and without cyanosis. No epistaxis or purulent drainage noted. MOUTH/OROPHARYNX - Without perioral cyanosis. Buccal mucosa pink and moist and without leukoplakia. Tongue midline with equal elevation of palate bilaterally. No tonsillar hypertrophy, erythema, or exudates noted. Edentulous NECK - Neck with FROM. Supple to palpation. LUNGS - Chest wall symmetric without accessory muscle use, intercostals retractions, or central cyanosis. Normal vesicular breath sounds CTA B/L. Inspiratory wheezes noted on exam. No rales or rhonchi appreciated. CARDIAC - RRR with S1/S2. No murmur, rubs, or gallops appreciated. No reproducible tenderness to palpation appreciated over the anterior chest wall. ABDOMEN - Abdominal contour obese and without pulsations or visible masses. BS normoactive all four quadrants. No tenderness, palpable masses, hepatosplenomegaly, or ascites noted. EXTREMITIES - Skin as above. No clubbing or peripheral cyanosis. Slight pretibial edema present bilaterally w/ RIGHT greater than left calf swelling. +3 /5 radial and dorsalis pedis pulses palpated throughout. +5/5 strength noted in UE/LE bilaterally. NEUROLOGIC - Cranial nerves II through XII grossly intact. Sensory intact to light touch throughout. PSYCH - A&Ox3 and cooperates fully with examiner. Pt is very pleasant and interacts well with examiner. Laboratory Results Last 24 Hours Test 08/29/17 16:55 08/29/17 17:25 08/29/17 21:11 08/29/17 21:58 White Blood Count 12.85 K/uL Red Blood Count 4.26 M/uL Hemoglobin 12.3 g/dL Hematocrit 37.0 % Mean Corpuscular Volume 86.9 fL Mean Corpuscular Hemoglobin 28.9 pg Mean Corpuscular Hemoglobin Concent 33.2 g/dl Platelet Count 254 K/uL Mean Platelet Volume 10.4 fL Neutrophils (%) (Auto) 93.3 % Lymphocytes (%) (Auto) 4.4 % Monocytes (%) (Auto) 1.6 % Eosinophils (%) (Auto) 0.2 % Basophils (%) (Auto) 0.2 % Neutrophils # (Auto) 11.97 K/uL Lymphocytes # (Auto) 0.57 K/uL Monocytes # (Auto) 0.21 K/uL Eosinophils # (Auto) 0.03 K/uL Basophils # (Auto) 0.03 K/uL RDW Standard Deviation 50.0 fL RDW Coefficient of Variation 15.6 % Immature Granulocyte % (Auto) 0.3 % Immature Granulocyte # (Auto) 0.04 K/uL Erythrocyte Sedimentation Rate 31 mm/hr Prothrombin Time 12.0 SECONDS Prothromb Time International Ratio 1.1 Activated Partial Thromboplast Time 29.6 SECONDS Partial Thromboplastin Ratio 1.1 Sodium Level 132 mmol/L 134 mmol/L Potassium Level 3.5 mmol/L 3.9 mmol/L Chloride Level 103 mmol/L 108 mmol/L Carbon Dioxide Level 18 mmol/L 18 mmol/L Anion Gap 11.0 mmol/L 8.0 mmol/L Blood Urea Nitrogen 12 mg/dl 11 mg/dl Creatinine 1.39 mg/dl 1.06 mg/dl Est Creatinine Clear Calc Drug Dose 59.1 ml/min 77.4 ml/min Estimated GFR () 55.2 76.6 Estimated GFR (Non- 47.6 66.1 BUN/Creatinine Ratio 8.6 10.7 Random Glucose 257 mg/dl 204 mg/dl Calcium Level 8.8 mg/dl 7.6 mg/dl Total Bilirubin 0.8 mg/dl Direct Bilirubin 0.6 mg/dl Aspartate Amino Transf (AST/SGOT) 39 U/L Alanine Aminotransferase (ALT/SGPT) 26 U/L Alkaline Phosphatase 124 U/L C-Reactive Protein 10.80 mg/dl Total Protein 6.8 gm/dl Albumin 3.0 gm/dl Procalcitonin 8.01 ng/ml Venous Blood pH 7.38 Venous Blood Partial Pressure CO2 34 mmHg Venous Blood Partial Pressure O2 29 mmHg Venous Blood HCO3 20 mmol/L Venous Blood Oxygen Saturation < 60.0 % Venous Blood Base Excess -5.0 mEq/L Lactic Acid Level 5.0 mmol/L 2.6 mmol/L Bedside Glucose 219 mg/dl Test 08/29/17 23:14 08/29/17 23:25 Bedside Glucose 206 mg/dl Sodium Level 136 mmol/L Potassium Level 4.0 mmol/L Chloride Level 109 mmol/L Carbon Dioxide Level 19 mmol/L Anion Gap 8.0 mmol/L Blood Urea Nitrogen 13 mg/dl Creatinine 1.11 mg/dl Est Creatinine Clear Calc Drug Dose 73.3 ml/min Estimated GFR () 72.4 Estimated GFR (Non- 62.5 BUN/Creatinine Ratio 11.5 Random Glucose 187 mg/dl Calcium Level 7.6 mg/dl Diagnostic Results Radiological imaging and reports were reviewed by myself. Radiologist's Interpretation as follows: SINGLE VIEW CHEST CLINICAL HISTORY: Fever. Sepsis. FINDINGS: An AP, portable, upright chest radiograph is compared to study dated 11/10/2016 and correlated with chest CT dated 11/09/2016. The heart appears enlarged. Mild pulmonary vascular congestion is suggested. Diffuse interstitial thickening and nodularity is noted. No lobar consolidation or large pleural effusion is identified. No pneumothorax is seen. The bony thorax is grossly intact. IMPRESSION: 1. The heart appears enlarged and mild pulmonary vascular congestion is suggested. 2. Diffuse interstitial thickening and nodularity is identified, which could represent a component of interstitial edema versus an infectious/inflammatory pneumonitis. Clinical correlation will be required. Assessment & Plan (1) Sepsis affecting skin (2) Abscess of upper extremity (3) Hyperglycemia (4) Hypoxemia (5) Elevated lactic acid level Reason Critically Ill: 37-year-old female with a significant past medical history for multiple recurrent skin infections as well as coronary artery disease, hypertension, and diabetes who presents with sepsis with presumed association to new abscess formation to the RIGHT wrist. Patient requiring close hemodynamic monitoring as well as close evaluation of oxygenation status with new O2 requirement. Neuro - * CAM ICU: NEGATIVE * Chronic pain complaints: * Encourage non-narcotics. * Anxiety: * PRN Ativan Cardiac - * Tachycardia: * Likely demand driven in the setting of fever/sepsis. * EKG: Sinus Tach 115bpm. Of note, T-wave inversions inferiorly (most prominent in III) noted. QTc 462ms. * Has improved w/ IVF. * Will add cardiac enzymes for the sake of completion and to rule out any other contributing factors in a pt w/ significant PMHx of CAD, etc. * CAD: * Continue home Rx. * EKGs w/ c/o pain. * Hypotension: * Currently not requiring any intervention. * Consider Levophed PRN to maintain MAPs >65. Respiratory - * Asthma w/ new cough: * Symptoms started today. * She had mild inspiratory wheezes on exam. * Will add nebs. * She offers no complaints of SOB, pleuritic pain, wheezing, hemoptysis. * CXR w/ ??RLL infiltrative change. Nothing profound, however. * She has a new O2 requirement of 2L NC and remains in the low 90s. At this point, she may certainly be experiencing s/s of a bronchopneumonia process or evolving randy pneumonia. Of concern, the patient has been tachy, has T wave changes on EKG, and significant PMH and FHx of thromboembolic disease. She continues to smoke as well. At this point, will add cardiac enzymes for evaluation of any cardiac strain given EKG. Will also check D-dimer while treating her presumed asthmatic process. * Encouraged smoking cessation. GI - * Prophylaxis: Protonix. * Diet: Diabetic, AHA RENAL/LYTES - * AJIT w/ Cr of 1.39 initially: * Has responded well to IVF. * Received 2L NSS in the ED. * Currently LR@200mL/hr - will change to 100mL/hr. * No significant electrolyte derangements. * Will monitor and replace as needed. - * Likely contaminated urine. * Will await culture. * Currently on Abx. ENDO - * DM w/ Hyperglycemia: * Initial BSG >250. * Insulin gtt stated per protocol. * No h/o Thyroid Dz. HEME - * Stable H&H. * Will monitor ID - * Sepsis from presumed Skin source: * Initially received IV Vanc/Cipro in the ED. * Placed on Aztreonam and Van inpatient. * Review of prior records demonstrates would culture growing out pseudomonas w / resistance to Aztreonam. While patient did receive Cipro in the ED, I feel this is poor overall coverage and lacks need for broad spectrum coverage in the critically ill patient. Based on her presentation w/ ??skin source w/ ??lung process w/ associated abx allergies, will change Aztreonam to Imipenem. Will keep vancomycin. * Currently lacking atypical coverage for ??pulm process. Did receive dose of IV Cipro in the ED. While this is not ideal coverage, will wait to add another agent (i.e. Doxy). * ProCal was elevated at >8. * Lactate >5. Continue to trend both. LINES/IV ACCESS - * PIVs x2 DVT PROPHYLAXIS - * Heparin sq I have personally spent 45 minutes of critical care time in the direct management of this patient. This is a life/limb threatening event. This includes time spent evaluating patient, direct bedside care, chart review, placing orders, interpretation of diagnostic studies, discussion with consultants, patient, and family members, as well as other required patient management activities. This time is exclusive of all separately billable procedures, and teaching time and separate from and in addition to any other critical care service time. Thank you for this consultation allow us to be part of this patient's care. Please refer to my attending physician's documentation for any further recommendations. I have personally evaluated and examined this patient. I agree with assessment and plan of Tiny Solares PA-C.
[2017-08-30 02:00] LABS: CKMB 12.2 ng/ml (0.5-3.6)
[2017-08-30] MEDS ORDERED: OPTIRAY 320 IV PRN ×2 (02:45→19:00)
[2017-08-30] MEDS: IPRATROPIUM BROMIDE NEB SOLN 0.02% 2.5 ML VIAL INH SCH ×3 (02:54→13:24)
[2017-08-30] MEDS: LEVALBUTEROL 1.25MG/0.5ML NEB INH SCH ×3 (02:54→13:24)
[2017-08-30] MEDS ORDERED: LEVALBUTEROL/IPRATROPIUM NEB INH SCH (03:00)
[2017-08-30] MEDS: IMIPENEM-CILASTATIN 500 MG in DEXTROSE 5% 100ML 100 ML IV SCH ×4 (04:18→21:11)
[2017-08-30] MEDS: METHYLPREDNISOLONE IV 40 MG in SYRINGE 0 ML IV SCH ×3 (04:18→19:25)
[2017-08-30 04:19] LABS: BASO % 0.2 %; BASO ABS # 0.03 K/uL (0-0.2); EOS % 0.8 %; HEMATOCRIT 31.2 % (37-47); HEMOGLOBIN 10.3 g/dL (12.0-16.0); IG# 0.05 K/uL (0.00-0.02); LYMPH % 12.2 %; LYMPH ABS # 1.48 K/uL (1.2-3.4); MEAN CELL VOLUME 86.7 fL (80-100); MEAN CORPUSCULAR HEMOGLOBIN 28.6 pg (25-34); MEAN PLATELET VOLUME 10.1 fL (7.4-10.4); MONO % 5.9 %; MONO ABS # 0.72 K/uL (0.11-0.59); NEUT % 80.5 %; NEUT ABS # 9.77 K/uL (1.4-6.5); PLATELET COUNT 209 K/uL (130-400); RED CELL DISTRIBUTION WIDTH CV 15.8 % (11.5-14.5); RED CELL DISTRIBUTION WIDTH SD 50.8 fL (36.4-46.3); WHITE BLOOD COUNT 12.15 K/uL (4.8-10.8)
[2017-08-30 04:37] LABS: INFLUENZA A PCR Neg for Influ A (NEG); INFLUENZA B PCR Neg for Influ B (NEG)
[2017-08-30 04:49] LABS: ALBUMIN 2.3 gm/dl (3.4-5.0); CALCIUM 7.8 mg/dl (8.5-10.1); CREATININE 0.93 mg/dl (0.60-1.20); PHOSPHORUS 3.9 mg/dl (2.5-4.9); TOTAL PROTEIN 5.4 gm/dl (6.4-8.2)
[2017-08-30] MEDS ORDERED: LEVALBUTEROL 1.25MG/3ML NEB INH PRN (05:30)
[2017-08-30] MEDS ORDERED: VANCOMYCIN IV 1,250 MG in SODIUM CHLORIDE 0.9% 250ML 250 ML IV SCH ×2 (06:00→18:00)
[2017-08-30] MEDS: DOXYCYCLINE IV 100 MG in DEXTROSE 5% 100ML 100 ML IV SCH ×2 (06:06→19:36)
[2017-08-30] MEDS: ACETAMINOPHEN 325 MG TAB PO PRN (06:06)
[2017-08-30] MEDS: HEPARIN SOD 5000 UNIT/0.5 ML CARP SQ SCH (06:07)
[2017-08-30] MEDS ORDERED: MAGNESIUM SULFATE 1GM / D5W 100 ML IV STA (06:11)
[2017-08-30 06:14] LABS: HEMOGLOBIN A1C 9.7 % (4.5-5.6)
--- NOTE | 2017-08-30 06:59 | DIAGNOSTIC IMAGING REPORT ---
(CHEST FOR PE) ANGIO WITH CT DOSE: 666.17 mGy.cm HISTORY: Chest pain dyspnea TECHNIQUE: Multiaxial CT images of the chest were performed following the intravenous administration of contrast to evaluate the pulmonary arteries. Maximal intensity projection images were also obtained. A dose lowering technique was utilized adhering to the principles of ALARA. COMPARISON STUDY: 11/09/2016 FINDINGS: The thoracic aorta is unremarkable. Pulmonary arterial vasculature enhances appropriately. There are no filling defects or pulmonary emboli. There are diffuse interstitial and/or groundglass infiltrative changes bilaterally. The appearance suggests a component of pulmonary edema, nonspecific pneumonitis, versus respiratory distress syndrome. IMPRESSION: 1. No evidence for pulmonary embolus. 2. Mild mediastinal and hilar adenopathy with nodes measuring up to 1.5 cm. 3. Diffuse bilateral interstitial and groundglass type infiltrative change suggesting pulmonary edema, adult respiratory distress, versus a nonspecific inflammatory process. The above report was generated using voice recognition software. It may contain grammatical, syntax or spelling errors. Electronically signed by: Dale Art M.D. 08/30/2017 6:58 AM Dictated Date/Time: 08/30/2017 6:55 AM
[2017-08-30] MEDS: GABAPENTIN 600 MG TAB PO SCH ×3 (07:31→19:58)
[2017-08-30] MEDS: CLOPIDOGREL BISULFATE 75 MG TAB PO SCH (07:32)
[2017-08-30] MEDS: INSULIN ASPART 100 UNITS/ML 3 ML PEN SC SCH ×4 (08:08→19:34)
[2017-08-30] MEDS ORDERED: METOPROLOL SUCC 25MG EXT REL TAB PO SCH (09:00)
[2017-08-30] MEDS ORDERED: ASPIRIN 81 MG ECTAB PO SCH (09:00)
[2017-08-30] MEDS ORDERED: PANTOprazole SOD 40 MG TAB PO SCH (09:00)
--- NOTE | 2017-08-30 09:36 | ECHOCARDIOGRAM REPORT ---
*NOTICE TO RECEIVING LIBERTARIAN AGENCY This information is strictly Confidential and protected under [place] law. [place] law prohibits you from making any further disclosure of this information unless further disclosure is expressly permitted by the written consent of the person to whom it pertains or is authorized by law. A general authorization for the release of medical or other information is not sufficient for this purpose. Hospital accepts no responsibility if the information is made available to any other person, INCLUDING THE PATIENT. Interpretation Summary * Name: ROGER WEEKS Study Date: 08/30/2017 06:42 AM BP: 112/66 mmHg * Patient Location: .MSICU\S\E107\S\1 HR: 104 * : 1980 (M/d/yyyy) Gender: Female Height: 64 in * Age: 37 yrs Ethnicity: CA Weight: 198 lb * Ordering Physician: Cande Heard * Referring Physician: Self, Referred * Performed By: Carly Bullock RDCS * * Reason For Study: MURMURS * BSA: 1.9 m2 * -- Conclusions -- * Sinus tachycardia is present during the study * The left ventricle is normal in size. * There is normal left ventricular wall thickness. * The left ventricular wall motion is normal. * Ejection Fraction = 55-60%. * The aortic valve leaflets are thickened and mildly calcified structure suggestive of bicuspid. Velocities are mildly elevated through the valve structure however leaflets appear mobile * No aortic regurgitation is present. Procedure Details * A contrast injection of Definity was performed to improve assessment of LV function. * Contrast was injected into an intravenous site in the left arm. * One vial of Definity ultrasound contrast was diluted in normal saline to a total volume of 10 ml. A total of '2' ml of solution was administered during imaging. * Lot # [id number] of Definity utilized for procedure. * Expiration date 1 JUN 17. * The attending nurse who injected the contrast agent was GALINA MONROE. * A complete two-dimensional transthoracic echocardiogram was performed (2D, M-mode, Doppler and color flow Doppler). Left Ventricle * The left ventricle is normal in size. * There is normal left ventricular wall thickness. * Ejection Fraction = 55-60%. * Left ventricular systolic function is normal. * The left ventricular wall motion is normal. Right Ventricle * The right ventricle is normal in size and function. Atria * The left atrial size is normal. * Right atrial size is normal. * No ASD detected; PFO is not assessed. Mitral Valve * The mitral valve anatomy is normal. * There is no mitral valve stenosis. * There is trace mitral regurgitation. Tricuspid Valve * The tricuspid valve anatomy is normal. * There is no tricuspid stenosis. * There is trace tricuspid regurgitation. Aortic Valve * The aortic valve leaflets are thickened and mildly calcified structure suggestive of bicuspid. Velocities are elevated through the valve structure of the leaflets appear mobile * No aortic regurgitation is present. Pulmonic Valve * The pulmonic valve is not well visualized. Great Vessels * The aortic root is normal size. Pericardium/Pleural * There is no pericardial effusion. Great Vessels * Normal inferior vena cava diameter and respiratory variation suggests normal central venous pressure. MMode 2D Measurements and Calculations IVSd 0.95 cm IVSs 1.2 cm LVIDd 4.1 cm LVIDs 2.8 cm LVPWd 1.1 cm LVPWs 1.3 cm IVS/LVPW 0.83 FS 31.1 % EDV(Teich) 74.5 ml ESV(Teich) 30.3 ml EF(Teich) 59.3 % EDV(cubed) 69.3 ml ESV(cubed) 22.7 ml EF(cubed) 67.3 % % IVS thick 27.6 % % LVPW thick 14.9 % LV mass(C)d 140.6 grams LV mass(C)dI 72.2 grams/m\S\2 LV mass(C)s 108.9 grams LV mass(C)sI 55.9 grams/m\S\2 SV(Teich) 44.2 ml SI(Teich) 22.7 ml/m\S\2 SV(cubed) 46.6 ml SI(cubed) 23.9 ml/m\S\2 LVAd ap4 36.7 cm\S\2 LVLd ap4 8.7 cm EDV(MOD-sp4) 126.9 ml EDV(sp4-el) 132.0 ml LVAs ap4 23.7 cm\S\2 LVLs ap4 7.7 cm ESV(MOD-sp4) 62.4 ml ESV(sp4-el) 62.2 ml EF(MOD-sp4) 50.8 % EF(sp4-el) 52.9 % LVAd ap2 37.4 cm\S\2 LVLd ap2 8.8 cm EDV(MOD-sp2) 133.0 ml EDV(sp2-el) 135.1 ml LVAs ap2 22.6 cm\S\2 LVLs ap2 7.2 cm ESV(MOD-sp2) 58.2 ml ESV(sp2-el) 60.1 ml EF(MOD-sp2) 56.3 % EF(sp2-el) 55.5 % LVLd %diff 1.8 % EDV(MOD-bp) 129.2 ml LVLs %diff -6.48 % ESV(MOD-bp) 62.2 ml EF(MOD-bp) 51.9 % SV(MOD-sp4) 64.5 ml SI(MOD-sp4) 33.1 ml/m\S\2 SV(MOD-sp2) 74.8 ml SI(MOD-sp2) 38.4 ml/m\S\2 SV(MOD-bp) 67.0 ml SI(MOD-bp) 34.4 ml/m\S\2 SV(sp4-el) 69.8 ml SI(sp4-el) 35.8 ml/m\S\2 SV(sp2-el) 75.0 ml SI(sp2-el) 38.5 ml/m\S\2 Doppler Measurements and Calculations MV E max tiffanie 132.8 cm/sec MV A max tiffanie 140.0 cm/sec MV E/A 0.95 MV dec time 0.14 sec Ao V2 max 314.3 cm/sec Ao max PG 39.5 mmHg Ao max PG (full) 29.2 mmHg Ao V2 mean 221.4 cm/sec Ao mean PG 22.3 mmHg Ao mean PG (full) 16.9 mmHg Ao V2 VTI 55.6 cm AI max tiffanie 411.5 cm/sec AI max PG 67.7 mmHg AI dec slope 185.0 cm/sec\S\2 AI P1/2t 651.6 msec LV V1 max PG 10.3 mmHg LV V1 mean PG 5.4 mmHg LV V1 max 160.4 cm/sec LV V1 mean 106.9 cm/sec LV V1 VTI 29.6 cm
[2017-08-30 09:40] LABS: CREATININE 0.95 mg/dl (0.60-1.20); POTASSIUM 3.7 mmol/L (3.5-5.1)
--- NOTE | 2017-08-30 09:45 | DIAGNOSTIC IMAGING REPORT ---
CHEST ONE VIEW PORTABLE CLINICAL HISTORY: Follow up exam. COMPARISON STUDY: Chest radiograph August 29, [address] August 30, 2017. FINDINGS: There is no pneumothorax or pleural effusion. There has been progression of dense bilateral airspace opacity since exam of August 30, 2017. Cardiomediastinal silhouette is stable. No cavitation is identified. IMPRESSION: Progression of extensive bilateral airspace opacities which may reflect multifocal pneumonia or pulmonary edema. Electronically signed by: Kush Rueda M.D. 08/30/2017 9:44 AM Dictated Date/Time: 08/30/2017 9:42 AM
[2017-08-30] MEDS: MAGNESIUM SULFATE 1GM / D5W 100 ML IV SCH ×2 (10:56→11:58)
--- NOTE | 2017-08-30 12:03 | Critical Care Progress Note ---
Critical Care Progress Note Date of Service August 30, 2017. ICU Day ICU Day Number: [address] Jaquez Subjective Some shortness of breath, improved from overnight. Is having subjective fever. No nausea no vomiting Objective General: Alert. nontoxic. Skin: Warm, dry, Head: Atraumatic Ears, nose, mouth and throat: airway patent Cardiovascular: Normal peripheral perfusion Respiratory: no respiratory distress Gastrointestinal: Non distended Musculoskeletal: No deformity Assessment & Plan Neuro - * CAM ICU: NEGATIVE * Chronic pain complaints: * Encourage non-narcotics. * Continue gabapentin * Anxiety: * PRN Ativan Cardiac - * Tachycardia: Resolved * Likely demand driven in the setting of fever/sepsis. * Prolonged QTC. * Avoid QT prolonging agents * CAD: * Continue home Rx. * EKGs w/ c/o pain. * Hypotension: * Resolved Respiratory - * Asthma w/ new cough: * Acute hypoxic respiratory failure * Tobacco abuse * And frankly concerned the patient may be moving towards acute respiratory distress syndrome. 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 * Check CHRISTIAN profile, RF, anti-GBM * Would encourage bronchoscopy if patient is intubated * She has been verbally consented for intubation and bronchoscopy will obtain formal written consent GI - * Prophylaxis: Protonix. * Diet: Diabetic, AHA * Mild elevation in LFTs, check hepatitis panel RENAL/LYTES - * AJIT w/ Cr of 1.39 initially: * Resolved * Repeat urinalysis to check urine sediment. * DC additional fluids at this time * No significant electrolyte derangements. * Will monitor and replace as needed. ENDO - * DM w/ Hyperglycemia: * Initial BSG >250. * Insulin gtt stated per protocol. * No h/o Thyroid Dz. HEME - * Anemia * Check reticulocyte count. * Lovenox for DVT prophylaxis * Patient verbally consented for blood transfusion, history of blood transfusion previously, reports after blood transfusion she had been tested for HIV which was negative ID - * Sepsis * I am concerned more about a pulmonary infection * Initially received IV Vanc/Cipro in the ED. * On vancomycin, Doxy, Primaxin * Unable to use Levaquin secondary to prolonged QTC. * I suspect this is more likely a viral pathogen as opposed to a bacterial pathogen, influenza is negative at this time * Repeat procalcitonin 72 hours * Significant improvement in lactic acidosis * Patient consented to checking HIV, will also check acute hepatitis panel LINES/IV ACCESS - * PIVs x2 DVT PROPHYLAXIS - * Lovenox * I discussed with the patient prognosis and possible decompensation. In the event of decompensation and she is unable to make decisions for herself the patient has designated Susan Gunn as her healthcare surrogate. Patient reports that she does not have parents beyond the stepfather, no living siblings, and one child who is under the age of 18. I have discussed the risks and benefits of central venous access, blood transfusion, intubation, bronchoscopy, arterial line with the patient and she agrees to proceed with procedures should they be warranted. I have personally spent 65 minutes of critical care time in the direct management of this patient. This is a life/limb threatening event. This includes time spent evaluating patient, direct bedside care, chart review, placing orders, interpretation of diagnostic studies, discussion with consultants, patient, and/or family members regarding treatment decisions, as well as other required patient management activities. This time is exclusive of all separately billable procedures, and teaching time and separate from and in addition to any other critical care service time. Data Medications: Current Inpatient Medications Medications (Trade) Dose Ordered Sig/Bonny Route Start Time Stop Time Status Last Admin Dose Admin Heparin Sodium (Porcine) (Heparin Sq 5000 Unit/0.5ml) 5,000 unit Q8H SQ 08/29/17 22:00 09/28/17 21:59 08/30/17 06:07 5,000 UNIT Acetaminophen (Tylenol Tab) 650 mg Q4H PRN PO 08/29/17 19:00 09/28/17 18:59 08/30/17 06:06 650 MG Lorazepam (Ativan Tab) 0.5 mg Q4H PRN PO 08/29/17 19:00 09/28/17 18:59 Al Hydrox/Mg Hydrox/Simethicone (Maalox Max Susp) 15 ml Q4H PRN PO 08/29/17 19:00 09/28/17 18:59 Magnesium Hydroxide (Milk Of Magnesia Susp) 30 ml Q12H PRN PO 08/29/17 19:00 09/28/17 18:59 Ondansetron HCl (Zofran Inj) 4 mg Q6H PRN IV 08/29/17 19:00 09/28/17 18:59 Pantoprazole Sodium (Protonix Tab) 40 mg DAILY PO 08/30/17 09:00 09/29/17 08:59 08/30/17 07:32 40 MG Miscellaneous Information (Icu Protocol For Hyperglycemia) 1 ea PRN PRN N/A 08/29/17 19:00 08/31/17 18:59 Insulin Aspart (novoLOG ASPART) SLIDING SCALE PCHS SC 08/29/17 21:00 09/28/17 20:59 08/30/17 08:08 4 UNITS Miscellaneous Information (Pharmacy Consult) 1 ea UD PRN N/A 08/29/17 20:15 09/28/17 20:14 Vancomycin HCl 1250 mg/Sodium Chloride 275 ml @ 125 mls/hr Q14H IV 08/30/17 06:00 09/06/17 05:59 08/30/17 06:06 125 MLS/HR Miscellaneous Information (Consult) 1 ea UD PRN N/A 08/29/17 19:15 09/28/17 19:14 Insulin Human Regular 250 units/ Sodium Chloride 252.5 ml @ 0 mls/hr Q24H IV 08/29/17 20:30 09/28/17 20:29 08/29/17 21:11 3.4 MLS/HR Glucose (Glucose 40% Gel) 15-30 GRAMS 15 GRAMS... UD PRN PO 08/29/17 21:00 09/28/17 20:59 Glucose (Glucose Chew Tab) 4-8 Tablets 4 Tabl... UD PRN PO 08/29/17 21:00 09/28/17 20:59 Dextrose (Dextrose 50% 50ML Syringe) 25-50ML 25ML FOR ... UD PRN IV 08/29/17 21:00 09/28/17 20:59 Glucagon (Glucagon Inj) 1 mg UD PRN IM 08/29/17 21:00 09/28/17 20:59 Carbohydrates (Carbohydrates For Hypoglycemia) 15-30 GRAMS 15 grams if BSG 54-69... UD PRN PO 08/29/17 21:00 09/28/17 20:59 Albuterol (Ventolin Hfa Inhaler) 2 puffs Q6H PRN INH 08/29/17 21:45 09/28/17 21:44 Aspirin (Ecotrin Tab) 81 mg DAILY PO 08/30/17 09:00 09/29/17 08:59 08/30/17 07:32 81 MG Atorvastatin Calcium (Lipitor Tab) 80 mg HS PO 08/30/17 21:00 09/29/17 20:59 Clopidogrel Bisulfate (plAVix TAB) 75 mg QAM PO 08/30/17 09:00 09/29/17 08:59 08/30/17 07:32 75 MG Gabapentin (Neurontin Tab) 600 mg TID PO 08/30/17 09:00 09/29/17 08:59 08/30/17 07:31 600 MG Metoprolol Succinate (Toprol Xl Tab) 25 mg QAM PO 08/30/17 09:00 09/29/17 08:59 08/30/17 07:32 25 MG Nitroglycerin (Nitrostat Tab) 0.4 mg UD PRN UT 08/29/17 21:45 09/28/17 21:44 Imipenem/ Cilastatin Sodium 500 mg/Dextrose 120 ml @ 100 mls/hr Q6H IV 08/29/17 22:00 09/05/17 21:59 08/30/17 10:06 100 MLS/HR Miscellaneous Information (Consult Glycemic Management Pharmacy) 1 ea UD PRN N/A 08/29/17 21:57 09/28/17 21:56 Ipratropium [place] (Atrovent 0.02% 0.5MG/2.5ML Neb) 0.5 mg Q6R INH 08/30/17 03:00 09/29/17 02:59 08/30/17 07:21 0.5 MG Levalbuterol (Xopenex 1.25MG/ 0.5ML Neb) 1.25 mg Q6R INH 08/30/17 03:00 09/29/17 02:59 08/30/17 07:21 1.25 MG Ioversol (Optiray 320) 93 ml UD PRN IV 08/30/17 02:45 09/03/17 02:44 Levalbuterol (Xopenex 1.25MG/ 3ML Neb) 1.25 mg Q2H PRN INH 08/30/17 05:30 09/29/17 05:29 08/30/17 05:48 1.25 MG Magnesium Sulfate 100 ml @ 100 mls/hr Q1H IV 08/30/17 10:30 08/30/17 12:29 08/30/17 10:56 100 MLS/HR Levofloxacin 750 mg/Prmx 150 ml @ 100 mls/hr Q24H IV 08/30/17 15:00 09/05/17 14:59 Methylprednisolone Sodium Succinate 40 mg/Syringe 0.64 ml @ 1.5 mls/min Q8H IV 08/30/17 20:00 09/29/17 19:59 Vital Signs: Date Time Temp Pulse Resp B/P (MAP) Pulse Ox O2 Delivery O2 Flow Rate FiO2 08/30/17 11:05 90 Nasal Cannula 5.0 08/30/17 11:00 92 27 116/72 (87) 90 Nasal Cannula 5.0 08/30/17 10:46 96 32 110/80 (90) 92 08/30/17 10:00 100 33 96 08/30/17 09:00 98 31 90 08/30/17 08:00 114 27 93 08/30/17 07:30 93 Nasal Cannula 4.0 08/30/17 07:24 36.9 97 20 113/76 (88) 97 Nasal Cannula 4.0 08/30/17 07:22 97 28 89 Nasal Cannula 4.0 08/30/17 07:00 104 33 89 08/30/17 06:00 108 37 112/66 (81) 90 Nasal Cannula 4.0 08/30/17 05:48 112 24 93 Nasal Cannula 3.0 08/30/17 04:00 91 Nasal Cannula 2.0 08/30/17 04:00 36.7 95 31 117/60 (79) 89 Nasal Cannula 2.0 08/30/17 02:54 108 20 95 Nasal Cannula 2.0 08/30/17 02:00 91 33 97/58 (71) 90 Nasal Cannula 2.0 08/30/17 00:00 92 33 98/51 (71) 08/30/17 00:00 36.7 92 33 98/51 (67) 92 Nasal Cannula 2.0 08/29/17 23:59 92 Nasal Cannula 2.0 08/29/17 22:00 103 22 99/65 (76) 90 Nasal Cannula 2.0 08/29/17 21:00 36.0 104 18 99/65 91 Room Air 08/29/17 19:44 112 18 105/64 97 5/3/18 19:18 112 18 105/64 97 Nasal Cannula 2.0 08/29/17 18:55 87 Room Air 08/29/17 18:40 116 18 103/59 93 Room Air 08/29/17 17:55 37.5 08/29/17 17:20 Room Air 08/29/17 17:02 135 08/29/17 16:30 38.4 146 20 118/69 95 Room Air Laboratory Results: Last 24 Hours Test 08/29/17 16:55 08/29/17 17:25 08/29/17 19:25 08/29/17 21:11 White Blood Count 12.85 K/uL Red Blood Count 4.26 M/uL Hemoglobin 12.3 g/dL Hematocrit 37.0 % Mean Corpuscular Volume 86.9 fL Mean Corpuscular Hemoglobin 28.9 pg Mean Corpuscular Hemoglobin Concent 33.2 g/dl Platelet Count 254 K/uL Mean Platelet Volume 10.4 fL Neutrophils (%) (Auto) 93.3 % Lymphocytes (%) (Auto) 4.4 % Monocytes (%) (Auto) 1.6 % Eosinophils (%) (Auto) 0.2 % Basophils (%) (Auto) 0.2 % Neutrophils # (Auto) 11.97 K/uL Lymphocytes # (Auto) 0.57 K/uL Monocytes # (Auto) 0.21 K/uL Eosinophils # (Auto) 0.03 K/uL Basophils # (Auto) 0.03 K/uL RDW Standard Deviation 50.0 fL RDW Coefficient of Variation 15.6 % Immature Granulocyte % (Auto) 0.3 % Immature Granulocyte # (Auto) 0.04 K/uL Erythrocyte Sedimentation Rate 31 mm/hr Prothrombin Time 12.0 SECONDS Prothromb Time International Ratio 1.1 Activated Partial Thromboplast Time 29.6 SECONDS Partial Thromboplastin Ratio 1.1 Sodium Level 132 mmol/L 134 mmol/L Potassium Level 3.5 mmol/L 3.9 mmol/L Chloride Level 103 mmol/L 108 mmol/L Carbon Dioxide Level 18 mmol/L 18 mmol/L Anion Gap 11.0 mmol/L 8.0 mmol/L Blood Urea Nitrogen 12 mg/dl 11 mg/dl Creatinine 1.39 mg/dl 1.06 mg/dl Est Creatinine Clear Calc Drug Dose 59.1 ml/min 77.4 ml/min Estimated GFR () 55.2 76.6 Estimated GFR (Non- 47.6 66.1 BUN/Creatinine Ratio 8.6 10.7 Random Glucose 257 mg/dl 204 mg/dl Estimated Average Glucose 232 mg/dl Hemoglobin A1c 9.7 % Calcium Level 8.8 mg/dl 7.6 mg/dl Total Bilirubin 0.8 mg/dl Direct Bilirubin 0.6 mg/dl Aspartate Amino Transf (AST/SGOT) 39 U/L Alanine Aminotransferase (ALT/SGPT) 26 U/L Alkaline Phosphatase 124 U/L C-Reactive Protein 10.80 mg/dl Total Protein 6.8 gm/dl Albumin 3.0 gm/dl Procalcitonin 8.01 ng/ml Venous Blood pH 7.38 Venous Blood Partial Pressure CO2 34 mmHg Venous Blood Partial Pressure O2 29 mmHg Venous Blood HCO3 20 mmol/L Venous Blood Oxygen Saturation < 60.0 % Venous Blood Base Excess -5.0 mEq/L Lactic Acid Level 5.0 mmol/L 2.6 mmol/L Bedside Glucose 275 mg/dl Test 08/29/17 21:58 08/29/17 23:14 08/29/17 23:25 08/30/17 00:02 Bedside Glucose 219 mg/dl 206 mg/dl 186 mg/dl Sodium Level 136 mmol/L Potassium Level 4.0 mmol/L Chloride Level 109 mmol/L Carbon Dioxide Level 19 mmol/L Anion Gap 8.0 mmol/L Blood Urea Nitrogen 13 mg/dl Creatinine 1.11 mg/dl Est Creatinine Clear Calc Drug Dose 73.3 ml/min Estimated GFR () 72.4 Estimated GFR (Non- 62.5 BUN/Creatinine Ratio 11.5 Random Glucose 187 mg/dl Calcium Level 7.6 mg/dl Test 08/30/17 01:07 08/30/17 01:09 08/30/17 03:01 08/30/17 03:30 Bedside Glucose 169 mg/dl 120 mg/dl D-Dimer 4930 ug/L FEU Total Creatine Kinase 488 U/L Creatine Kinase MB 12.2 ng/ml Creatine Kinase MB Ratio 2.5 Troponin I < 0.015 ng/ml Influenza Type A (RT-PCR) Neg for Influ A Influenza Type B (RT-PCR) Neg for Influ B Test 08/30/17 04:04 08/30/17 04:15 08/30/17 05:09 08/30/17 06:00 White Blood Count 12.15 K/uL Red Blood Count 3.60 M/uL Hemoglobin 10.3 g/dL Hematocrit 31.2 % Mean Corpuscular Volume 86.7 fL Mean Corpuscular Hemoglobin 28.6 pg Mean Corpuscular Hemoglobin Concent 33.0 g/dl Platelet Count 209 K/uL Mean Platelet Volume 10.1 fL Neutrophils (%) (Auto) 80.5 % Lymphocytes (%) (Auto) 12.2 % Monocytes (%) (Auto) 5.9 % Eosinophils (%) (Auto) 0.8 % Basophils (%) (Auto) 0.2 % Neutrophils # (Auto) 9.77 K/uL Lymphocytes # (Auto) 1.48 K/uL Monocytes # (Auto) 0.72 K/uL Eosinophils # (Auto) 0.10 K/uL Basophils # (Auto) 0.03 K/uL RDW Standard Deviation 50.8 fL RDW Coefficient of Variation 15.8 % Immature Granulocyte % (Auto) 0.4 % Immature Granulocyte # (Auto) 0.05 K/uL Sodium Level 136 mmol/L Potassium Level 4.0 mmol/L Chloride Level 109 mmol/L Carbon Dioxide Level 22 mmol/L Anion Gap 5.0 mmol/L Blood Urea Nitrogen 13 mg/dl Creatinine 0.93 mg/dl Est Creatinine Clear Calc Drug Dose 87.5 ml/min Estimated GFR () 89.7 Estimated GFR (Non- 77.4 BUN/Creatinine Ratio 14.4 Random Glucose 118 mg/dl Lactic Acid Level 1.5 mmol/L Calcium Level 7.8 mg/dl Phosphorus Level 3.9 mg/dl Magnesium Level 1.7 mg/dl Total Bilirubin 0.7 mg/dl Direct Bilirubin 0.4 mg/dl Aspartate Amino Transf (AST/SGOT) 51 U/L Alanine Aminotransferase (ALT/SGPT) 23 U/L Alkaline Phosphatase 87 U/L Total Protein 5.4 gm/dl Albumin 2.3 gm/dl Procalcitonin 23.05 ng/ml Bedside Glucose 132 mg/dl 162 mg/dl 174 mg/dl Test 08/30/17 08:15 08/30/17 09:17 08/30/17 10:00 Sodium Level 135 mmol/L Potassium Level 3.7 mmol/L Chloride Level 107 mmol/L Carbon Dioxide Level 20 mmol/L Anion Gap 8.0 mmol/L Blood Urea Nitrogen 12 mg/dl Creatinine 0.95 mg/dl Est Creatinine Clear Calc Drug Dose 87.3 ml/min Estimated GFR () 87.4 Estimated GFR (Non- 75.4 BUN/Creatinine Ratio 12.5 Random Glucose 214 mg/dl Calcium Level 8.0 mg/dl Lactic Acid Level 2.7 mmol/L Absolute Reticulocyte Count 0.08 10^6/uL Percent Reticulocyte Count 2.0 % Prealbumin 8.9 mg/dl Hepatitis B Surface Antigen NEG HIV (1&2) Ab and P24 Ag, 4th Gener NEG Anti-Streptolysin O Antibody Screen POS IU/ml Anti-Streptolysin O Antibody Titer 200 IU/ml
[2017-08-30 13:20] LABS: HEP C IGG 13 YRS+OLDER_RFLX PRELIM POS (NEG)
--- NOTE | 2017-08-30 13:54 | Progress Note ---
Progress Note Date of Service August 30, 2017. Progress Note ID Consult Dictated #[id number] A/P: 1. PNA 2. Right wrist abscess 3. Prelim + HCV -Concerned for IVDA, although denies, would suggest UDS -Follow cultures, blood cultures pending, if + staph vanco would be preferred agent over zyvox as zyvox is not bacterocidal for staph -Check sputum culture if able to provide, tentative bronch scheduled -Thank you
--- NOTE | 2017-08-30 14:28 | Progress Note ---
Internal Med Progress Note Date of Service: August 30, 2017. Provider Documentation: SUBJECTIVE: Patient remains in ICU. She is breathing on nasal cannula and reports that with some exertion she feels short of breath. OBJECTIVE: Exam: General- on nasal cannula Eyes- EOMI Neck- no JVD Lungs- fair air entry, no wheezing, on nasal cannula Heart- normal rate, a murmur is audible but echocardiogram normal Abdomen- soft, nontender, positive bowel sounds Extremities- there is a big red bump above the right wrist, no deficits in hand and finger mobility Neuro- awake and alert ASSESSMENT & PLAN: Admission CT chest 08/30/17 "1. No evidence for pulmonary embolus. 2. Mild mediastinal and hilar adenopathy with nodes measuring up to 1.5 cm. 3. Diffuse bilateral interstitial and groundglass type infiltrative change suggesting pulmonary edema, adult respiratory distress, versus a nonspecific inflammatory process." CXR 08/30/17 7 AM There has been progression of dense bilateral airspace opacity since exam of August 30, 2017 08/30/17 echocardiogram * Sinus tachycardia is present during the study * The left ventricle is normal in size. * There is normal left ventricular wall thickness. * The left ventricular wall motion is normal. * Ejection Fraction = 55-60%. * The aortic valve leaflets are thickened and mildly calcified structure suggestive of bicuspid. Velocities are mildly elevated through the valve structure however leaflets appear mobile * No aortic regurgitation is present. This is a 37 year old female with Acute hypoxic respiratory failure , tachycardia in the setting of fever/ sepsis, may be secondary to pneumonia and/ or right wrist abscess -current antibiotics is IV doxycycline, IV Primaxin, IV Linezolid (Zyvox) -urine toxicology negative -preliminary hepatitis C antibody positive -As per Infectious disease, Follow cultures, blood cultures pending, if there is positive staph then vancomycin would be preferred agent over Linezolid ( Zyvox) as Zyvox is not bactercidal for staph -the ICU has no current plans to do bronchoscopy as of now but this was considered given the diffuse interstitial lung findings on CT scan -ICU also working on the respiratory management, currently patient on nasal cannula, does not require intubation at this time, also getting solumedrol for breathing -Diabetes Type 2, pharmacy glycemic consult for diabetes management especially as patient receiving steroids which can drive hyperglycemia -AJIT resolving after IV fluids -DVT ppx with Lovenox, renal function adequate for Lovenox currently -echocardiogram unremarkable, continue aspirin, plavix, atorvastatin for hsitory of CAD with stent -blood pressure improving, hold lisinopril for now to avoid hypotension which could be exacerbated by sepsis Vital Signs: Date Time Temp Pulse Resp B/P (MAP) Pulse Ox O2 Delivery O2 Flow Rate FiO2 08/30/17 14:00 100 32 113/83 (93) 93 Nasal Cannula 5.0 08/30/17 13:33 101 34 125/71 (89) 91 08/30/17 13:24 86 29 92 Nasal Cannula 5.0 08/30/17 12:00 36.9 93 30 94 Nasal Cannula 5.0 08/30/17 11:05 90 Nasal Cannula 5.0 08/30/17 11:00 92 27 116/72 (87) 90 Nasal Cannula 5.0 08/30/17 10:46 96 32 110/80 (90) 92 08/30/17 10:00 100 33 96 08/30/17 09:00 98 31 90 08/30/17 08:00 114 27 93 08/30/17 07:30 93 Nasal Cannula 4.0 08/30/17 07:24 36.9 97 20 113/76 (88) 97 Nasal Cannula 4.0 08/30/17 07:22 97 28 89 Nasal Cannula 4.0 08/30/17 07:00 104 33 89 08/30/17 06:00 108 37 112/66 (81) 90 Nasal Cannula 4.0 08/30/17 05:48 112 24 93 Nasal Cannula 3.0 08/30/17 04:00 91 Nasal Cannula 2.0 08/30/17 04:00 36.7 95 31 117/60 (79) 89 Nasal Cannula 2.0 08/30/17 02:54 108 20 95 Nasal Cannula 2.0 08/30/17 02:00 91 33 97/58 (71) 90 Nasal Cannula 2.0 08/30/17 00:00 92 33 98/51 (71) 08/30/17 00:00 36.7 92 33 98/51 (67) 92 Nasal Cannula 2.0 08/29/17 23:59 92 Nasal Cannula 2.0 08/29/17 22:00 103 22 99/65 (76) 90 Nasal Cannula 2.0 08/29/17 21:00 36.0 104 18 99/65 91 Room Air 08/29/17 19:44 112 18 105/64 97 08/29/17 19:18 112 18 105/64 97 Nasal Cannula 2.0 08/29/17 18:55 87 Room Air 08/29/17 18:40 116 18 103/59 93 Room Air 08/29/17 17:55 37.5 08/29/17 17:20 Room Air 08/29/17 17:02 135 08/29/17 16:30 38.4 146 20 118/69 95 Room Air Lab Results: Results Past 24 Hours Test 08/29/17 16:55 08/29/17 17:25 08/29/17 19:25 08/29/17 21:11 Range/Units White Blood Count 12.85 4.8-10.8 K/uL Red Blood Count 4.26 4.2-5.4 M/uL Hemoglobin 12.3 12.0-16.0 g/dL Hematocrit 37.0 37-47 % Mean Corpuscular Volume 86.9 80-100 fL Mean Corpuscular Hemoglobin 28.9 25-34 pg Mean Corpuscular Hemoglobin Concent 33.2 32-36 g/dl Platelet Count 254 130-400 K/uL Mean Platelet Volume 10.4 7.4-10.4 fL Neutrophils (%) (Auto) 93.3 % Lymphocytes (%) (Auto) 4.4 % Monocytes (%) (Auto) 1.6 % Eosinophils (%) (Auto) 0.2 % Basophils (%) (Auto) 0.2 % Neutrophils # (Auto) 11.97 1.4-6.5 K/uL Lymphocytes # (Auto) 0.57 1.2-3.4 K/uL Monocytes # (Auto) 0.21 0.11-0.59 K/uL Eosinophils # (Auto) 0.03 0-0.5 K/uL Basophils # (Auto) 0.03 0-0.2 K/uL RDW Standard Deviation 50.0 36.4-46.3 fL RDW Coefficient of Variation 15.6 11.5-14.5 % Immature Granulocyte % (Auto) 0.3 % Immature Granulocyte # (Auto) 0.04 0.00-0.02 K/uL Erythrocyte Sedimentation Rate 31 0-21 mm/hr Prothrombin Time 12.0 9.0-12.0 SECONDS Prothromb Time International Ratio 1.1 0.9-1.1 Activated Partial Thromboplast Time 29.6 21.0-31.0 SECONDS Partial Thromboplastin Ratio 1.1 Sodium Level 132 134 136-145 mmol/L Potassium Level 3.5 3.9 3.5-5.1 mmol/L Chloride Level 103 108 98-107 mmol/L Carbon Dioxide Level 18 18 21-32 mmol/L Anion Gap 11.0 8.0 3-11 mmol/L Blood Urea Nitrogen 12 11 7-18 mg/dl Creatinine 1.39 1.06 0.60-1.20 mg/dl Est Creatinine Clear Calc Drug Dose 59.1 77.4 ml/min Estimated GFR () 55.2 76.6 Estimated GFR (Non- 47.6 66.1 BUN/Creatinine Ratio 8.6 10.7 10-20 Random Glucose 257 204 70-99 mg/dl Estimated Average Glucose 232 mg/dl Hemoglobin A1c 9.7 4.5-5.6 % Calcium Level 8.8 7.6 8.5-10.1 mg/dl Total Bilirubin 0.8 0.2-1 mg/dl Direct Bilirubin 0.6 0-0.2 mg/dl Aspartate Amino Transf (AST/SGOT) 39 15-37 U/L Alanine Aminotransferase (ALT/SGPT) 26 12-78 U/L Alkaline Phosphatase 124 45-117 U/L C-Reactive Protein 10.80 0-0.29 mg/dl Total Protein 6.8 6.4-8.2 gm/dl Albumin 3.0 3.4-5.0 gm/dl Procalcitonin 8.01 0-0.5 ng/ml Venous Blood pH 7.38 7.36-7.41 Venous Blood Partial Pressure CO2 34 38.0-50.0 mmHg Venous Blood Partial Pressure O2 29 mmHg Venous Blood HCO3 20 mmol/L Venous Blood Oxygen Saturation < 60.0 % Venous Blood Base Excess -5.0 mEq/L Lactic Acid Level 5.0 2.6 0.4-2.0 mmol/L Bedside Glucose 275 70-90 mg/dl Test 08/29/17 21:58 08/29/17 23:14 08/29/17 23:25 08/30/17 00:02 Range/Units Bedside Glucose 219 206 186 70-90 mg/dl Sodium Level 136 136-145 mmol/L Potassium Level 4.0 3.5-5.1 mmol/L Chloride Level 109 98-107 mmol/L Carbon Dioxide Level 19 21-32 mmol/L Anion Gap 8.0 3-11 mmol/L Blood Urea Nitrogen 13 7-18 mg/dl Creatinine 1.11 0.60-1.20 mg/dl Est Creatinine Clear Calc Drug Dose 73.3 ml/min Estimated GFR () 72.4 Estimated GFR (Non- 62.5 BUN/Creatinine Ratio 11.5 10-20 Random Glucose 187 70-99 mg/dl Calcium Level 7.6 8.5-10.1 mg/dl Test 08/30/17 01:07 08/30/17 01:09 08/30/17 03:01 08/30/17 03:30 Range/Units Bedside Glucose 169 120 70-90 mg/dl D-Dimer 4930 0-500 ug/L FEU Total Creatine Kinase 488 26-192 U/L Creatine Kinase MB 12.2 0.5-3.6 ng/ml Creatine Kinase MB Ratio 2.5 0-3.0 Troponin I < 0.015 0-0.045 ng/ml Influenza Type A (RT-PCR) Neg for Influ A NEG Influenza Type B (RT-PCR) Neg for Influ B NEG Test 08/30/17 04:04 08/30/17 04:15 08/30/17 05:09 08/30/17 06:00 Range/Units White Blood Count 12.15 4.8-10.8 K/uL Red Blood Count 3.60 4.2-5.4 M/uL Hemoglobin 10.3 12.0-16.0 g/dL Hematocrit 31.2 37-47 % Mean Corpuscular Volume 86.7 80-100 fL Mean Corpuscular Hemoglobin 28.6 25-34 pg Mean Corpuscular Hemoglobin Concent 33.0 32-36 g/dl Platelet Count 209 130-400 K/uL Mean Platelet Volume 10.1 7.4-10.4 fL Neutrophils (%) (Auto) 80.5 % Lymphocytes (%) (Auto) 12.2 % Monocytes (%) (Auto) 5.9 % Eosinophils (%) (Auto) 0.8 % Basophils (%) (Auto) 0.2 % Neutrophils # (Auto) 9.77 1.4-6.5 K/uL Lymphocytes # (Auto) 1.48 1.2-3.4 K/uL Monocytes # (Auto) 0.72 0.11-0.59 K/uL Eosinophils # (Auto) 0.10 0-0.5 K/uL Basophils # (Auto) 0.03 0-0.2 K/uL RDW Standard Deviation 50.8 36.4-46.3 fL RDW Coefficient of Variation 15.8 11.5-14.5 % Immature Granulocyte % (Auto) 0.4 % Immature Granulocyte # (Auto) 0.05 0.00-0.02 K/uL Sodium Level 136 136-145 mmol/L Potassium Level 4.0 3.5-5.1 mmol/L Chloride Level 109 98-107 mmol/L Carbon Dioxide Level 22 21-32 mmol/L Anion Gap 5.0 3-11 mmol/L Blood Urea Nitrogen 13 7-18 mg/dl Creatinine 0.93 0.60-1.20 mg/dl Est Creatinine Clear Calc Drug Dose 87.5 ml/min Estimated GFR () 89.7 Estimated GFR (Non- 77.4 BUN/Creatinine Ratio 14.4 10-20 Random Glucose 118 70-99 mg/dl Lactic Acid Level 1.5 0.4-2.0 mmol/L Calcium Level 7.8 8.5-10.1 mg/dl Phosphorus Level 3.9 2.5-4.9 mg/dl Magnesium Level 1.7 1.8-2.4 mg/dl Total Bilirubin 0.7 0.2-1 mg/dl Direct Bilirubin 0.4 0-0.2 mg/dl Aspartate Amino Transf (AST/SGOT) 51 15-37 U/L Alanine Aminotransferase (ALT/SGPT) 23 12-78 U/L Alkaline Phosphatase 87 45-117 U/L Total Protein 5.4 6.4-8.2 gm/dl Albumin 2.3 3.4-5.0 gm/dl Procalcitonin 23.05 0-0.5 ng/ml Bedside Glucose 132 162 174 70-90 mg/dl Test 08/30/17 08:02 08/30/17 08:15 08/30/17 09:03 08/30/17 09:17 Range/Units Bedside Glucose 223 287 70-90 mg/dl Sodium Level 135 136-145 mmol/L Potassium Level 3.7 3.5-5.1 mmol/L Chloride Level 107 98-107 mmol/L Carbon Dioxide Level 20 21-32 mmol/L Anion Gap 8.0 3-11 mmol/L Blood Urea Nitrogen 12 7-18 mg/dl Creatinine 0.95 0.60-1.20 mg/dl Est Creatinine Clear Calc Drug Dose 87.3 ml/min Estimated GFR () 87.4 Estimated GFR (Non- 75.4 BUN/Creatinine Ratio 12.5 10-20 Random Glucose 214 70-99 mg/dl Calcium Level 8.0 8.5-10.1 mg/dl Pro-B-Type Natriuretic Peptide 847 0-450 pg/ml Lactic Acid Level 2.7 0.4-2.0 mmol/L Test 08/30/17 10:00 08/30/17 12:15 Range/Units Absolute Reticulocyte Count 0.08 0.02-0.10 10^6/uL Percent Reticulocyte Count 2.0 0.5-2.0 % Prealbumin 8.9 20-40 mg/dl Hepatitis B Surface Antigen NEG NEG Hepatitis C Antibody PRELIM POS NEG HIV (1&2) Ab and P24 Ag, 4th Gener NEG NEG Anti-Streptolysin O Antibody Screen POS <200 IU IU/ml Anti-Streptolysin O Antibody Titer 200 <200 IU IU/ml Venous Blood pH 7.32 7.36-7.41 Venous Blood Partial Pressure CO2 41 38.0-50.0 mmHg Venous Blood Partial Pressure O2 25 mmHg Venous Blood HCO3 21 mmol/L Venous Blood Oxygen Saturation < 60.0 % Venous Blood Base Excess -4.8 mEq/L Lactic Acid Level 3.7 0.4-2.0 mmol/L Microbiology Results 08/29/17 Blood Culture, Received Pending 08/29/17 Blood Culture, Received Pending 08/29/17 MRSA DNA Surveillance Screen - Final, Complete Specimen Negative for MRSA by DNA Probe
[2017-08-30] MEDS ORDERED: LEVOFLOXACIN 750MG / D5W IV SCH (15:00)
--- NOTE | 2017-08-30 15:30 | INFECT. DISEASE CONSULTATION ---
DATE OF CONSULTATION: 08/30/2017 DATE OF CONSULTATION: 08/30/2017. HISTORY OF PRESENT ILLNESS: This is a 37-year-old female who was admitted to the hospital with subjective fevers and chills. She also recently noticed an abscess on her right wrist. She states that this was spontaneous and she has had abscesses like this in the past. She was recently seen at an outpatient facility where she was given prescription for Bactrim. She was tolerating this well, but only took a few doses before she began having fevers and was brought to the hospital. She was also noted to have significant shortness of breath. She does have a history of asthma, but states it has been under relatively good control. A flu swab was negative. On CAT scan of the chest, did not show any evidence of PE, but did show hilar lymphadenopathy and some infiltrative changes, which could be inflammatory, infectious or early ARDS. She is currently on nasal cannula oxygen and sitting out of bed to chair. She states her breathing is feeling better. She was given vancomycin in the ER and then placed on imipenem and doxycycline along with IV steroids. Her T-max is 38.4. She currently is afebrile. She denies any cough, shortness of breath or chest pain. She has no nausea, vomiting, diarrhea or abdominal pain. Overall, she is feeling better. A flu swab was negative. HIV testing was also negative. CHRISTIAN and rheumatoid factor are pending. Procalcitonin was elevated at 23. Blood cultures and urine cultures are pending. She is tolerating her antibiotics without difficulty. She denies any sick contacts recently. She does admit to some pain remaining in her right wrist, but otherwise her remaining review of systems is unremarkable. PAST MEDICAL HISTORY: Significant for abscesses, history of pyelonephritis, sinusitis, asthma, anemia, chronic back pain, hypertension, bronchitis, high cholesterol, history of DVT, diabetes, scabies, coronary artery disease. PAST SURGICAL HISTORY: Significant for cholecystectomy. FAMILY HISTORY: Noncontributory. SOCIAL HISTORY: Significant for daily tobacco use. She denies any alcohol or drug use. ALLERGIES: INCLUDE CEPHALEXIN, EGG, LIDOCAINE, PROCAINE, PENICILLIN, TRAMADOL AND AZITHROMYCIN. MEDICATIONS: Lipitor, Lovenox, Solu-Medrol, Zyvox, Protonix, Ecotrin, Plavix, doxycycline, Xopenex, Atrovent, imipenem, Ventolin, Tylenol, Ativan, Maalox, milk of magnesia, Zofran. PHYSICAL EXAMINATION: VITAL SIGNS: She is currently afebrile, pulse 86, respiratory rate is in the 20s, blood pressure 116/72, oxygen saturation is 92-94% on 5 liters nasal cannula. GENERAL: She is awake, alert and oriented x3. She is in no acute distress. HEENT: Mucous membranes are moist. Extraocular muscles are intact. HEART: Regular. LUNGS: Have decreased breath sounds bilaterally, but there is no wheezing. ABDOMEN: Soft and nondistended. There is no lower extremity edema. SKIN: Without rash. There is an abscess on the right forearm. There is no wound opening. There is no bleeding, drainage, surrounding erythema or warmth. LABORATORY STUDIES: CBC today reveals a white blood cell count of 12.1, hemoglobin 10.3, platelets 209. Sed rate is 31. Chemistry panel: Sodium 135, potassium 3.7, chloride 107, bicarbonate 20, BUN 12, creatinine 0.5, glucose 214, AST is 51, ALT is 23, procalcitonin is 23. UA had 10-30 wbc's, moderate leukocyte esterase, greater than 30 epithelial cells and 3+ bacteria. Urine test is negative. Hep C antibody is preliminarily positive. HIV is negative. Flu swab is negative. Urine culture is pinpoint and re-incubating. Blood cultures are pending. Chest x-ray done this morning shows opacities reflecting multifocal pneumonia. ASSESSMENT AND PLAN: 1. Pneumonia. 2. Right arm abscess. She will remain on broad-spectrum antibiotics pending blood and urine culture results. Certainly, there does appear to be a pulmonary component. She does admit to multiple abscesses and has a pulmonary positive Hepatitis C antibody; however, she denies any IV drug use. I would check urine drug screen for confirmation. Pending blood cultures, vancomycin may be superior to Zyvox as there is concern for bloodstream infection and Zyvox is not bacteriocidal for Staph aureus bloodstream infections, but certainly would be superior in treating on an isolated pulmonary event.
[2017-08-30] MEDS: LINEZOLID 600MG / D5W IV SCH (15:39)
--- NOTE | 2017-08-30 16:26 | Pharmacy Progress Note ---
Glycemic: Assessment & Plan Date of Service August 30, 2017. Assessment & Plan The patient is currently receiving an insulin drip (rates fluctuating ~ 2.6- 12.1 units/hr) over the last 24 hours. Patient's insulin drip needs increased dramatically throughout the day, most likely due to the addition of IV steroids. These were decreased from 40mg q6h to 40mg q8h. It is noted that the patient may also be stressed due to infectious processes. As discussed with the critical care team, the insulin drip will remain on given the patient's sensitivity to steroids. May consider the addition of basal lantus to assist with eventual drip transition when patient becomes more stable. The patient is ordered a diet. * Basal insulin: Insulin infusion * Correctional Insulin: Novolog Correction per scale [facility] Goal Range: Low 140 mg/dL - High 180 mg/dL * Prandial insulin: As per drip calculator Pharmacy will continue to monitor patient daily and write orders per [facility] inpatient glycemic control protocol. Thanks. * Please note that the plan above was derived based on current level of insulin resistance and hospital stress. These recommendations are appropriate for inpatient admission only. Plan of care upon discharge will need to be reassessed to avoid potential outpatient hypo/hyperglycemia.
[2017-08-30] MEDS ORDERED: SUCCINYLCHOLINE CHLORIDE 20 MG/ML 10 ML VIAL IV STA (16:29)
[2017-08-30] MEDS ORDERED: ETOMIDATE 2 MG/ML 20 ML VIAL IV ONE (16:30)
[2017-08-30] MEDS ORDERED: RAPID SEQUENCE INDUCTION BAG ONE (16:32)
[2017-08-30] MEDS ORDERED: DexMEDEtomidine HCL IV 200 MCG in SODIUM CHLORIDE 0.9% 50ML 48 ML IV SCH (16:50)
[2017-08-30] MEDS ORDERED: PROPOFOL IV EMULSION 10 MG/ML 100 ML VIAL ONE ×2 (16:53→18:05)
[2017-08-30] MEDS ORDERED: MIDAZOLAM 125MG/250ML D5W ONE (17:12)
[2017-08-30] MEDS: ACYCLOVIR SOD INJ 500 MG in DEXTROSE 5% 100ML 100 ML IV SCH (18:38)
[2017-08-30] MEDS: FENTANYL CITRATE INJ 50 MCG/1 ML 2 ML VIAL IV PRN (18:40)
--- NOTE | 2017-08-30 18:43 | Procedure Note ---
Procedure Note Date of Service August 30, 2017. Procedure Note Procedure date: August 30, 2017 Procedure: fiberoptic bronchoscopy Pre-procedure Diagnosis: Acute hypoxic respiratory failure, acute respiratory distress syndrome Post-procedure Diagnosis: same as above Prior to Procedure: Informed Consent: The risks, benefits, indications, potential complications, and alternatives were explained to the patient/family and informed consent obtained. Attending Staff: Elvin Jaquez DO Resident/APC: Margaret Roberto Skin Prep: Not applicable Anesthesia: IV propofol, IV Versed, 100 mcg fentanyl Indications: Patient is a 37-year-old female with concern for acute respiratory distress syndrome and significant hypoxic respiratory failure.. The identity of the patient was confirmed and a bedside time out was performed. Description of Procedure: Fiberoptic bronchoscopy was performed via endotracheal tube. Serial Bronchioalveolar lavage of the right middle lobe was performed. No evidence of diffuse alveolar hemorrhage was found. Minimal erythema and minimal secretions of the distal airways was noted. Most significantly the patient had excessive dynamic airway collapse and evidence of tracheomalacia with greater than 75% occlusion of the airways Complications: None Specimens: Bronchial washings sent for culture and Gram stain, cytology, fungal elements, and AFB stain and culture, as well as CMV and HSV cultures. Estimated blood loss: Zero
--- NOTE | 2017-08-30 18:46 | Procedure Note ---
Procedure Note Procedure Date August 30, 2017. Procedure Description Procedure Name: Left axillary arterial line Procedure time out: side/site verified, patient ID confirmed, correct procedure Consent obtained: written Time of procedure: 17:00 Performed by: attending Indications: diagnostic Contraindications: none Description: The left axilla was prepped with chlorhexidine and draped in a sterile fashion. Utilizing dynamic ultrasound guidance a 12 cm 20-gauge arterial line was inserted into the left axillary artery by Seldinger technique. The arterial line was secured by a commercial securement device. Complications: none Patient tolerated procedure: well Post-procedure vital signs: reviewed and stable Comments: Critical Care Medicine Point of Care Bedside Ultrasound Procedure: Procedural Ultrasound Procedure Date: August 30, 2017 Indication: Left axillary arterial line placement Attending: Elvin Jaquez DO Resident/Physician Textile Worker: Margaret Roberto Artery AND Vein visualized: Yes Guidewire or Short Catheter seen in artery prior to dilation: Yes Impression: Successful left axillary arterial line placement Images obtained are saved for permanent record
--- NOTE | 2017-08-30 18:47 | Procedure Note ---
Procedure Note Date of Service August 30, 2017. Procedure Note Procedure Date: August 30, 2017 Procedure: Endotracheal intubation Pre-procedure Diagnosis: Acute hypoxic respiratory failure Post-procedure Diagnosis: same as above Prior to Procedure: Informed Consent: Patient was informed of the risks benefits and informed consent was obtained Attending Staff: Elvin Jaquez DO Indications: Acute hypoxic respiratory failure The identity of the patient was confirmed and a bedside time out was performed. Description of Procedure: Patient was evaluated and required intubation for impending respiratory failure. The patient was prepared in the usual fashion. A 2 Lopez laryngoscope was used. A 8.0 Fr endotrachial tube was placed endotracheally to 23 cm at the gumline. A grade 2 view was obtained. The endotracheal tube was noted to pass through the vocal cords. Chest rise was bilateral. Bilateral breath sounds were heard without air sounds in the abdomen. Mist was noted in the endotracheal tube. End-tidal CO2 measurement was positive. Chest x-ray shows proper endotracheal tube placement. Complications: None Findings: not applicable Specimens: not applicable Estimated blood loss: Zero
--- NOTE | 2017-08-30 18:53 | DIAGNOSTIC IMAGING REPORT ---
CHEST ONE VIEW PORTABLE HISTORY: 37 years-old Female intubation bronch acute respiratory failure. COMPARISON: Chest radiograph 08/30/2017 at 9:19 AM TECHNIQUE: Portable AP view of the chest FINDINGS: Status post placement of an endotracheal tube, overlying the midline 4.5 cm superior to the misti. Enteric tube has been placed with distal tip projecting over the left upper quadrant, likely within the mid to distal gastric lumen. Surgical clips of the right upper quadrant are noted. Cardiac silhouette is enlarged. Multifocal mixed interstitial and alveolar opacities are again noted throughout all lung zones bilaterally. No pneumothorax or pleural effusion. Bones appear intact. IMPRESSION: 1. Endotracheal tube overlies the midline, 4.5 cm superior to the misti. 2. Distal enteric tube overlies the left upper quadrant, likely within the mid to distal gastric lumen. 3. Persistent bilateral mixed interstitial and alveolar opacities suggesting multifocal pneumonia or noncardiogenic pulmonary edema. No pleural effusion. The above report was generated using voice recognition software. It may contain grammatical, syntax or spelling errors. Electronically signed by: Isidro Eli M.D. 08/30/2017 6:51 PM Dictated Date/Time: 08/30/2017 6:49 PM
[2017-08-30] MEDS: INSULIN REGULAR 250 UNITS in SODIUM CHLORIDE 0.9% 250ML 250 ML IV SCH (19:25)
[2017-08-30] MEDS: ENOXAPARIN 40 MG/0.4 ML SYR SQ SCH (19:33)
[2017-08-30] MEDS ORDERED: ATORVASTATIN 40 MG TAB PO SCH (21:00)
[2017-08-30] MEDS: PROPOFOL IV EMULSION 10 MG/ML 100 ML VIAL IV PRN (21:18)
[2017-08-30] MEDS: IPRATROPIUM BROMIDE HFA INHALER INH SCH (23:20)
[2017-08-30] MEDS: LEValbuterol HFA 15GM INHALER INH SCH (23:21)
--- NOTE | 2017-08-30 23:55 | DIAGNOSTIC IMAGING REPORT ---
ABDOMEN AND PELVIS CT WITH IV CONTRAST CT DOSE: 1421.47 mGy.cm HISTORY: Acute sepsis with ARDS sepsis/ards TECHNIQUE: Multiaxial CT images of the abdomen and pelvis were performed following the use of intravenous contrast. A dose lowering technique was utilized adhering to the principles of ALARA. COMPARISON STUDY: Chest radiograph of same day at 6:30 PM, CTA chest 08/30/2017. FINDINGS: Extensive consolidative and groundglass opacities of the imaged lung bases without pleural effusion, progressed from comparison CTA chest of same day. Thin-walled 1.3 cm cyst of the posterior basal segment right lower lobe. Motion degraded exam without pneumatosis or pneumoperitoneum. Imaged inferior cardiac chambers are unremarkable. Coronary arterial calcifications are noted. Prior cholecystectomy. Liver is mildly enlarged. Spleen is also enlarged, 17.5 cm. Pancreas and right adrenal gland are unremarkable. There is thickening of the left adrenal gland. Prior cholecystectomy. Kidneys, and ureters are unremarkable. Decompressed bladder with Mayfield catheter in place. Uterus and adnexa are unremarkable. Mild mixed plaquing of the aorta and iliac vasculature. No bulky adenopathy. Enteric tube terminates within the mid gastric body. No bowel obstruction or focal bowel wall thickening. No significant mesenteric inflammatory changes. Mild colonic diverticulosis without diverticulitis. Normal appendix. Mild body wall edema. Posterior decompression with interbody gale and screw fusion L4-S1. Discectomy changes at L5-S1. IMPRESSION: 1. Extensive mixed consolidative and groundglass opacities of the imaged lung bases have progressed from comparison CTA chest earlier today suggesting noncardiogenic pulmonary edema with superimposed pneumonia difficult to exclude. 2. No infectious or inflammatory changes identified within the abdomen or pelvis. Normal appendix. 3. Hepatosplenomegaly. 4. Colonic diverticulosis without diverticulitis. 5. Coronary arterial disease. 6. Prior cholecystectomy. Electronically signed by: Isidro Eli M.D. 08/30/2017 11:54 PM Dictated Date/Time: 08/30/2017 11:46 PM
[2017-08-31] VITALS (29 sets, daily range): BP systolic 109–210; BP diastolic 50–76; PULSE 93–122; TEMP 36.8–37.5; O2SAT 92–100; BMI 36.4
[2017-08-31] MEDS: INSULIN ASPART 100 UNITS/ML 3 ML PEN SC SCH ×8 (00:21→21:00)
[2017-08-31] MEDS: PROPOFOL IV EMULSION 10 MG/ML 100 ML VIAL IV PRN ×7 (00:39→23:41)
[2017-08-31] MEDS: ACYCLOVIR SOD INJ 500 MG in DEXTROSE 5% 100ML 100 ML IV SCH ×2 (00:55→09:24)
[2017-08-31] MEDS: LEValbuterol HFA 15GM INHALER INH SCH ×6 (03:17→23:35)
[2017-08-31] MEDS: IPRATROPIUM BROMIDE HFA INHALER INH SCH ×6 (03:17→23:35)
[2017-08-31] MEDS: MIDAZOLAM 125MG/250ML D5W 250 ML IV PRN ×2 (03:19→15:21)
[2017-08-31] MEDS: LINEZOLID 600MG / D5W IV SCH (04:11)
[2017-08-31] MEDS: IMIPENEM-CILASTATIN 500 MG in DEXTROSE 5% 100ML 100 ML IV SCH ×4 (04:11→21:30)
[2017-08-31] MEDS: METHYLPREDNISOLONE IV 40 MG in SYRINGE 0 ML IV SCH ×2 (04:11→15:46)
[2017-08-31 04:28] LABS: BASO % 0.1 %; BASO ABS # 0.01 K/uL (0-0.2); HEMATOCRIT 30.2 % (37-47); HEMOGLOBIN 10.1 g/dL (12.0-16.0); IG# 0.09 K/uL (0.00-0.02); LYMPH % 7.6 %; LYMPH ABS # 1.33 K/uL (1.2-3.4); MEAN CELL VOLUME 86.5 fL (80-100); MEAN CORPUSCULAR HEMOGLOBIN 28.9 pg (25-34); MEAN CORPUSCULAR HGB CONC 33.4 g/dl (32-36); MONO % 4.7 %; MONO ABS # 0.82 K/uL (0.11-0.59); NEUT % 87.1 %; NEUT ABS # 15.16 K/uL (1.4-6.5); PLATELET COUNT 241 K/uL (130-400); RED CELL DISTRIBUTION WIDTH CV 15.9 % (11.5-14.5); RED CELL DISTRIBUTION WIDTH SD 50.8 fL (36.4-46.3); WHITE BLOOD COUNT 17.41 K/uL (4.8-10.8)
--- NOTE | 2017-08-31 04:31 | Critical Care Progress Note ---
Critical Care Progress Note Date of Service August 31, 2017. ICU Day ICU Day Number: [address] Jaquez Subjective Patient underwent endotracheal intubation with fiberoptic bronchoscopy in the setting of worsening labored breathing and progressive signs and symptoms of ARDS. Relatively unremarkable bronchoscopy reported. BAL pending. PJP/PCP testing added. Bactrim added for empiric coverage of PJP PNA. Started on tube feeds of Peptamen Bariatric with goal of 50mL/hr. Sedated with Propofol/ Midazolam gtts. Continue to titrate down FiO2 as tolerating. Uneventful night otherwise. Objective VITAL SIGNS - Vital signs and nursing notes were reviewed. GENERAL - 37-year-old female appearing much older than her stated age who is in no acute distress. Intubated and sedated. RASS -3. SKIN - I&D site noted to the ventral surface of the distal RIGHT wrist overlying the ulnar surface. No significant surrounding erythema, edema, or ecchymosis present. No lymphangitic streaking present. HEAD - NC/AT. MOUTH/OROPHARYNX - Endotracheally intubated. LUNGS - Tachypnea. Coarse breath sounds with slight inspiratory wheezes noted. No rales appreciated. CARDIAC - RRR with S1/S2. No murmur, rubs, or gallops appreciated. No reproducible tenderness to palpation appreciated over the anterior chest wall. ABDOMEN - Abdominal contour obese and without pulsations or visible masses. BS normoactive all four quadrants. No tenderness, palpable masses, hepatosplenomegaly, or ascites noted. EXTREMITIES - Skin as above. No clubbing or peripheral cyanosis. Slight pretibial edema present bilaterally. Assessment & Plan (1) Sepsis affecting skin (2) Abscess of upper extremity (3) Hyperglycemia (4) Hypoxemia (5) Elevated lactic acid level Neuro - * CAM ICU: Unable to assess 2/2 RASS -3/4 * Sedation: Propofol/Midazolam gtts. High doses noted to maintain sedation. * Agree with heavier than usual sedation in this patient in the setting of ARDS and need for control of ventilation. Cardiac - * Tachycardia: Resolved * Likely demand driven in the setting of fever/sepsis. * Prolonged QTC. * Avoid QT prolonging agents * CAD: * Continue home Rx. * Hypotension: * Resolved Respiratory - * Acute hypoxic respiratory failure --> ARDS: * Currently intubated/sedated. * Proceeding with ARDSNET protocol. Continue to titrate down FiO2 while allowing for higher PEEPs initially. * Pulmonary toilet. * Awaiting BAL results. * Abx coverage - see ID * Tobacco abuse GI - * Prophylaxis: Protonix. * Diet: Tube Feeds * Peptamen Bariatric w/ goal of 50mL/hr - titrate up per nurse-driven protocol. * Positive Hepatitis C serology. * Can be addressed when patient more clinically stable. * CT Abdomen/Pelvis demonstrates no acute findings. RENAL/LYTES - * AJIT w/ Cr of 1.39 initially: * Resolved * Repeat urinalysis to check urine sediment. * No significant electrolyte derangements. * Will monitor and replace as needed. ENDO - * DM w/ Hyperglycemia: * Initial BSG >250. * Insulin gtt stated per protocol. * No h/o Thyroid Dz. HEME - * Anemia * Check reticulocyte count - No significant findings. * Lovenox for DVT prophylaxis * Patient verbally consented for blood transfusion, history of blood transfusion previously, reports after blood transfusion she had been tested for HIV which was negative ID - * Sepsis * I am concerned more about a pulmonary infection * Initially received IV Vanc/Cipro in the ED. * ABX/Antiviral: Acyclovir, Doxy, Imipenem, Linezolid, Bactrim * Unable to use Levaquin secondary to prolonged QTC. * I suspect this is more likely a viral pathogen as opposed to a bacterial pathogen, influenza is negative at this time * Repeat procalcitonin 72 hours * PJP BAL pending - Bactrim for prophylactic tx * HIV NEGATIVE * Hep C POSITIVE * Initial blood cultures positive for yeast. --> Loading dose of Caspofungin 70mg followed by 50mg IV daily. LINES/IV ACCESS - * PIVs x4 * LEFT Axillary Arterial Line * [place] Catheter * Endotracheal Tube DVT PROPHYLAXIS - * Lovenox I have personally spent 35 minutes of critical care time in the direct management of this patient. This is a life/limb threatening event. This includes time spent evaluating patient, direct bedside care, chart review, placing orders, interpretation of diagnostic studies, discussion with consultants, patient, and/or family members regarding treatment decisions, as well as other required patient management activities. This time is exclusive of all separately billable procedures, and teaching time and separate from and in addition to any other critical care service time. I have personally evaluated and examined this patient. I agree with assessment and plan of S. Sujatha PA-C. If patient requires neuromuscular blockade I would utilize cis-atracurium Ophthalmology consult to rule out endophthalmitis Continue broad-spectrum antibiotics, repeat fungal culture tomorrow morning Will attempt to obtain speciation as well as resistant patterns of positive fungal culture Prolonged QT daily EKGs ARDS P to F ratio 255 Patient is hepatitis C positive, she denies IV drug use, however the abscess on her right hand is over superficial veins, and examination of her left hand there felt to be significant scar tissue over her venous system. HIV is negative but will require repeat testing if the patient could be in a window period. Patient has known hardware, will obtain repeat fungal blood cultures. Venous duplex of the bilateral lower extremities ordered. I have personally spent 60 minutes of critical care time in the direct management of this patient. This is a life/limb threatening event. This includes time spent evaluating patient, direct bedside care, chart review, placing orders, interpretation of diagnostic studies, discussion with consultants, patient, and/or family members regarding treatment decisions, as well as other required patient management activities. This time is exclusive of all separately billable procedures, and teaching time and separate from and in addition to any other critical care service time. Consults & Procedures Consultants: Dr. Camila Main Data Medications: Current Inpatient Medications Medications (Trade) Dose Ordered Sig/Bonny Route Start Time Stop Time Status Last Admin Dose Admin Acetaminophen (Tylenol Tab) 650 mg Q4H PRN PO 08/29/17 19:00 09/28/17 18:59 08/30/17 06:06 650 MG Lorazepam (Ativan Tab) 0.5 mg Q4H PRN PO 08/29/17 19:00 09/28/17 18:59 Al Hydrox/Mg Hydrox/Simethicone (Maalox Max Susp) 15 ml Q4H PRN PO 08/29/17 19:00 09/28/17 18:59 Magnesium Hydroxide (Milk Of Magnesia Susp) 30 ml Q12H PRN PO 08/29/17 19:00 09/28/17 18:59 Ondansetron HCl (Zofran Inj) 4 mg Q6H PRN IV 08/29/17 19:00 09/28/17 18:59 Pantoprazole Sodium (Protonix Tab) 40 mg DAILY PO 08/30/17 09:00 09/29/17 08:59 Future Hold 08/30/17 07:32 40 MG Miscellaneous Information (Icu Protocol For Hyperglycemia) 1 ea PRN PRN N/A 08/29/17 19:00 08/31/17 18:59 Insulin Aspart (novoLOG ASPART) SLIDING SCALE [facility] 08/29/17 21:00 09/28/17 20:59 08/30/17 12:05 4 UNITS Miscellaneous Information (Pharmacy Consult) 1 ea UD PRN N/A 08/29/17 20:15 09/28/17 20:14 Insulin Human Regular 250 units/ Sodium Chloride 252.5 ml @ 0 mls/hr Q24H IV 08/29/17 20:30 09/28/17 20:29 08/30/17 19:25 12.1 MLS/HR Glucose (Glucose 40% Gel) 15-30 GRAMS 15 GRAMS... UD PRN PO 08/29/17 21:00 09/28/17 20:59 Glucose (Glucose Chew Tab) 4-8 Tablets 4 Tabl... UD PRN PO 08/29/17 21:00 09/28/17 20:59 Dextrose (Dextrose 50% 50ML Syringe) 25-50ML 25ML FOR ... UD PRN IV 08/29/17 21:00 09/28/17 20:59 Glucagon (Glucagon Inj) 1 mg UD PRN IM 08/29/17 21:00 09/28/17 20:59 Carbohydrates (Carbohydrates For Hypoglycemia) 15-30 GRAMS 15 grams if BSG 54-69... UD PRN PO 08/29/17 21:00 09/28/17 20:59 Albuterol (Ventolin Hfa Inhaler) 2 puffs Q6H PRN INH 08/29/17 21:45 09/28/17 21:44 Aspirin (Ecotrin Tab) 81 mg DAILY PO 08/30/17 09:00 09/29/17 08:59 08/30/17 07:32 81 MG Atorvastatin Calcium (Lipitor Tab) 80 mg HS PO 08/30/17 21:00 09/29/17 20:59 08/30/17 19:33 80 MG Clopidogrel Bisulfate (plAVix TAB) 75 mg QAM PO 08/30/17 09:00 09/29/17 08:59 08/30/17 07:32 75 MG Gabapentin (Neurontin Tab) 600 mg TID PO 08/30/17 09:00 09/29/17 08:59 08/30/17 19:58 600 MG Metoprolol Succinate (Toprol Xl Tab) 25 mg QAM PO 08/30/17 09:00 09/29/17 08:59 08/30/17 07:32 25 MG Nitroglycerin (Nitrostat Tab) 0.4 mg UD PRN UT 08/29/17 21:45 09/28/17 21:44 Imipenem/ Cilastatin Sodium 500 mg/Dextrose 120 ml @ 100 mls/hr Q6H IV 08/29/17 22:00 09/05/17 21:59 08/30/17 21:11 100 MLS/HR Miscellaneous Information (Consult Glycemic Management Pharmacy) 1 ea UD PRN N/A 08/29/17 21:57 09/28/17 21:56 Ioversol (Optiray 320) 93 ml UD PRN IV 08/30/17 02:45 09/03/17 02:44 Doxycycline Hyclate 100 mg/ Dextrose 110 ml @ 50 mls/hr BID@0600,1800 IV 08/30/17 06:00 09/06/17 05:59 08/30/17 19:36 50 MLS/HR Levalbuterol (Xopenex 1.25MG/ 3ML Neb) 1.25 mg Q2H PRN INH 08/30/17 05:30 09/29/17 05:29 08/30/17 05:48 1.25 MG Methylprednisolone Sodium Succinate 40 mg/Syringe 0.64 ml @ 1.5 mls/min Q8H IV 08/30/17 20:00 09/29/17 19:59 08/30/17 19:25 1.5 MLS/MIN Enoxaparin Sodium (Lovenox Inj) 40 mg Q24H SQ 08/30/17 21:00 09/29/17 20:59 08/30/17 19:33 40 MG Linezolid 600 mg/ Prmx 300 ml @ 200 mls/hr Q12H IV 08/30/17 16:00 09/06/17 15:59 08/30/17 15:39 200 MLS/HR Fentanyl Citrate (Fentanyl Inj) 100 mcg Q2H PRN IV 08/30/17 16:30 09/13/17 16:29 08/30/17 18:40 100 MCG Dexmedetomidine HCl 200 mcg/ Sodium Chloride 50 ml @ 0 mls/hr Q0M IV 08/30/17 16:50 09/03/17 16:49 Pantoprazole Sodium 40 mg/ Syringe 10 ml @ 5 mls/min Q24H IV 08/31/17 07:00 09/30/17 06:59 Acyclovir Sodium 500 mg/Dextrose 110 ml @ 110 mls/hr Q8H IV 08/30/17 17:00 09/13/17 16:59 08/31/17 00:55 110 MLS/HR Ioversol (Optiray 320) 100 ml UD PRN IV 08/30/17 19:00 09/03/17 18:59 Enteral Nutritional Formula (Peptamen Intense VHP) 1,000 ml GOAL RATE = 50ML/HR OG 08/31/17 09:00 09/30/17 08:59 08/30/17 21:19 1,000 ML Propofol (Diprivan Iv Emulsion 100ml Vial) 1 dose UD PRN IV 08/30/17 19:15 09/02/17 19:14 08/31/17 00:39 1 DOSE Midazolam HCl 250 ml @ 0 mls/hr Q0M PRN IV 08/30/17 19:06 09/29/17 19:05 08/31/17 03:19 20 MLS/HR Levalbuterol (Xopenex Hfa Inhaler) 4 puffs Q4R INH 08/30/17 20:00 09/29/17 19:59 08/31/17 03:17 4 PUFFS Ipratropium Meridian (Atrovent Hfa Inhaler) 4 puffs Q4R INH 08/30/17 20:00 09/29/17 19:59 08/31/17 03:17 4 PUFFS Trimethoprim/ Sulfamethoxazole (Septra Ds 800/ 160MG Tab) 1 tab Q12 PO 08/31/17 09:00 09/07/17 08:59 Insulin Aspart (novoLOG ASPART) SLIDING SCALE Q4H SC 08/31/17 00:00 08/31/17 12:00 08/31/17 00:21 1 UNITS Vital Signs: Date Time Temp Pulse Resp B/P (MAP) Pulse Ox O2 Delivery O2 Flow Rate FiO2 08/31/17 03:17 65 08/31/17 02:01 65 08/31/17 02:00 104 36 119/65 (83) 97 Mechanical Ventilator 65 08/31/17 02:00 75 08/31/17 00:00 75 08/31/17 00:00 36.8 94 34 114/72 (86) 98 Mechanical Ventilator 75 08/30/17 23:59 98 Mechanical Ventilator 13.0 75 08/30/17 23:59 75 08/30/17 23:18 85 08/30/17 22:00 87 31 123/73 (90) 97 Mechanical Ventilator 85 08/30/17 20:00 36.7 101 28 99/57 (71) 99 Mechanical Ventilator 100 08/30/17 20:00 100 08/30/17 20:00 85 08/30/17 20:00 Mechanical Ventilator 100 08/30/17 18:00 108 16 99/64 (76) 100 Mechanical Ventilator 100 08/30/17 17:15 100 08/30/17 16:00 86 Oxymask 13.0 08/30/17 16:00 36.6 95 36 87/71 (76) 88 Oxymask 8.0 08/30/17 14:00 100 32 113/83 (93) 93 Nasal Cannula 5.0 08/30/17 13:33 101 34 125/71 (89) 91 08/30/17 13:24 86 29 92 Nasal Cannula 5.0 08/30/17 12:00 36.9 93 30 94 Nasal Cannula 5.0 08/30/17 11:05 90 Nasal Cannula 5.0 08/30/17 11:00 92 27 116/72 (87) 90 Nasal Cannula 5.0 08/30/17 10:46 96 32 110/80 (90) 92 08/30/17 10:00 100 33 96 08/30/17 09:00 98 31 90 08/30/17 08:00 114 27 93 08/30/17 07:30 93 Nasal Cannula 4.0 08/30/17 07:24 36.9 97 20 113/76 (88) 97 Nasal Cannula 4.0 08/30/17 07:22 97 28 89 Nasal Cannula 4.0 08/30/17 07:00 104 33 89 08/30/17 06:00 108 37 112/66 (81) 90 Nasal Cannula 4.0 08/30/17 05:48 112 24 93 Nasal Cannula 3.0 08/30/17 04:00 91 Nasal Cannula 2.0 08/30/17 04:00 36.7 95 31 117/60 (79) 89 Nasal Cannula 2.0 Laboratory Results: Last 24 Hours Test 08/30/17 04:04 08/30/17 04:15 08/30/17 05:09 08/30/17 06:00 White Blood Count 12.15 K/uL Red Blood Count 3.60 M/uL Hemoglobin 10.3 g/dL Hematocrit 31.2 % Mean Corpuscular Volume 86.7 fL Mean Corpuscular Hemoglobin 28.6 pg Mean Corpuscular Hemoglobin Concent 33.0 g/dl Platelet Count 209 K/uL Mean Platelet Volume 10.1 fL Neutrophils (%) (Auto) 80.5 % Lymphocytes (%) (Auto) 12.2 % Monocytes (%) (Auto) 5.9 % Eosinophils (%) (Auto) 0.8 % Basophils (%) (Auto) 0.2 % Neutrophils # (Auto) 9.77 K/uL Lymphocytes # (Auto) 1.48 K/uL Monocytes # (Auto) 0.72 K/uL Eosinophils # (Auto) 0.10 K/uL Basophils # (Auto) 0.03 K/uL RDW Standard Deviation 50.8 fL RDW Coefficient of Variation 15.8 % Immature Granulocyte % (Auto) 0.4 % Immature Granulocyte # (Auto) 0.05 K/uL Sodium Level 136 mmol/L Potassium Level 4.0 mmol/L Chloride Level 109 mmol/L Carbon Dioxide Level 22 mmol/L Anion Gap 5.0 mmol/L Blood Urea Nitrogen 13 mg/dl Creatinine 0.93 mg/dl Est Creatinine Clear Calc Drug Dose 87.5 ml/min Estimated GFR () 89.7 Estimated GFR (Non- 77.4 BUN/Creatinine Ratio 14.4 Random Glucose 118 mg/dl Lactic Acid Level 1.5 mmol/L Calcium Level 7.8 mg/dl Phosphorus Level 3.9 mg/dl Magnesium Level 1.7 mg/dl Total Bilirubin 0.7 mg/dl Direct Bilirubin 0.4 mg/dl Aspartate Amino Transf (AST/SGOT) 51 U/L Alanine Aminotransferase (ALT/SGPT) 23 U/L Alkaline Phosphatase 87 U/L Total Protein 5.4 gm/dl Albumin 2.3 gm/dl Procalcitonin 23.05 ng/ml Bedside Glucose 132 mg/dl 162 mg/dl 174 mg/dl Test 08/30/17 08:02 08/30/17 08:15 08/30/17 09:03 08/30/17 09:17 Bedside Glucose 223 mg/dl 287 mg/dl Sodium Level 135 mmol/L Potassium Level 3.7 mmol/L Chloride Level 107 mmol/L Carbon Dioxide Level 20 mmol/L Anion Gap 8.0 mmol/L Blood Urea Nitrogen 12 mg/dl Creatinine 0.95 mg/dl Est Creatinine Clear Calc Drug Dose 87.3 ml/min Estimated GFR () 87.4 Estimated GFR (Non- 75.4 BUN/Creatinine Ratio 12.5 Random Glucose 214 mg/dl Calcium Level 8.0 mg/dl Pro-B-Type Natriuretic Peptide 847 pg/ml Lactic Acid Level 2.7 mmol/L Test 08/30/17 10:00 08/30/17 10:03 08/30/17 11:00 08/30/17 12:00 Absolute Reticulocyte Count 0.08 10^6/uL Percent Reticulocyte Count 2.0 % Prealbumin 8.9 mg/dl Hepatitis B Surface Antigen NEG Hepatitis C Antibody PRELIM POS HIV (1&2) Ab and P24 Ag, 4th Gener NEG Anti-Streptolysin O Antibody Screen POS IU/ml Anti-Streptolysin O Antibody Titer 200 IU/ml Bedside Glucose 332 mg/dl 324 mg/dl 340 mg/dl Test 08/30/17 12:15 08/30/17 13:10 08/30/17 14:30 08/30/17 15:30 Venous Blood pH 7.32 Venous Blood Partial Pressure CO2 41 mmHg Venous Blood Partial Pressure O2 25 mmHg Venous Blood HCO3 21 mmol/L Venous Blood Oxygen Saturation < 60.0 % Venous Blood Base Excess -4.8 mEq/L Lactic Acid Level 3.7 mmol/L Bedside Glucose 316 mg/dl 286 mg/dl 266 mg/dl Test 08/30/17 16:29 08/30/17 17:37 08/30/17 18:30 08/30/17 18:33 Bedside Glucose 249 mg/dl 220 mg/dl 185 mg/dl Test 08/30/17 19:22 08/30/17 20:52 08/30/17 21:22 08/30/17 22:22 Bedside Glucose 166 mg/dl 142 mg/dl 151 mg/dl 124 mg/dl Test 08/30/17 22:50 08/30/17 23:01 08/30/17 23:18 08/31/17 00:13 Bedside Glucose 121 mg/dl 129 mg/dl 157 mg/dl 152 mg/dl Test 08/31/17 01:03 08/31/17 02:05 Bedside Glucose 145 mg/dl 155 mg/dl
[2017-08-31 04:56] LABS: ALBUMIN 2.2 gm/dl (3.4-5.0); CALCIUM 8.1 mg/dl (8.5-10.1); CREATININE 0.69 mg/dl (0.60-1.20); PHOSPHORUS 4.4 mg/dl (2.5-4.9); POTASSIUM 4.4 mmol/L (3.5-5.1); TOTAL PROTEIN 5.8 gm/dl (6.4-8.2)
[2017-08-31] MEDS ORDERED: CASPOFUNGIN INJ 70 MG in SODIUM CHLORIDE 0.9% 250ML 250 ML IV ONE (06:00)
[2017-08-31] MEDS: DOXYCYCLINE IV 100 MG in DEXTROSE 5% 100ML 100 ML IV SCH (06:01)
[2017-08-31 06:23] LABS: HEPATITIS A IGM TC 51813E NON-REACTIVE (NON-REACTIVE); HEPATITIS B CORE IGM TC51854R NON-REACTIVE (NON-REACTIVE)
--- NOTE | 2017-08-31 06:56 | Procedure Note ---
Procedure Note Procedure Date August 30, 2017. Procedure Description Procedure Name: Left radial arterial line Procedure time out: side/site verified, patient ID confirmed, correct procedure Consent obtained: written Time of procedure: 17:15 Performed by: attending Indications: diagnostic Contraindications: none Description: The left patient's left wrist was prepped with chlorhexidine and draped in a sterile fashion. Using dynamic ultrasound guidance a 20-gauge aero catheter was inserted into the left radial artery via modified Seldinger technique. Ultimately pulsatile flow was not noted from the catheter. It did appear to be within the lumen of the artery on ultrasound guidance. The catheter was discontinued and a pressure dressing was applied. Complications: none Patient tolerated procedure: well Post-procedure vital signs: reviewed and stable
[2017-08-31] MEDS ORDERED: PANTOprazole INJ 40 MG in SYRINGE 0 ML IV SCH (07:00)
--- NOTE | 2017-08-31 07:18 | DIAGNOSTIC IMAGING REPORT ---
CHEST ONE VIEW PORTABLE CLINICAL HISTORY: 37 years-old Female presenting with pna/ards. TECHNIQUE: Portable supine AP view of the chest was obtained. COMPARISON: 08/30/2017. FINDINGS: Endotracheal tube terminates in the mid thoracic trachea over 4 cm from the misti. Nasogastric tube descends below the diaphragm, terminus not visualized. Numerous external leads project over the thorax degrading evaluation. The patient is [place] rotated. Allowing for this, the cardiomediastinal silhouette is within normal limits. Persistent diffuse hazy lung opacities which are stable to increased from prior. No large pleural effusion or pneumothorax. Osseous structures normal. Upper abdomen normal. IMPRESSION: 1. Appropriately positioned endotracheal tube. Nasogastric tube descends below the diaphragm. 2. Stable to slight interval increase in diffuse hazy lung opacities most concerning for multifocal pneumonia, diffuse alveolar damage, or inhalation injury. Electronically signed by: Irvin Fox M.D. 08/31/2017 7:17 AM Dictated Date/Time: 08/31/2017 7:14 AM
--- NOTE | 2017-08-31 07:52 | Progress Note ---
Internal Med Progress Note Date of Service: August 31, 2017. Provider Documentation: SUBJECTIVE: Patient is currently s/p intubation, on mechanical ventilation, after she had underwent Patient underwent endotracheal intubation with fiberoptic bronchoscopy in the setting of worsening labored breathing and progressive signs and symptoms of ARDS. OBJECTIVE: Exam: General - sedated, on mechanical ventilation Lungs - on mechanical ventilation Heart- normal rate Abdomen- soft, positive bowel sounds Extremities- patient has arterial line, right wrist bump presumed to be abscess is not draining and no skin breaks of the right hand. Neuro- sedated ASSESSMENT & PLAN: This is a 37 year old female with Acute hypoxic respiratory failure , tachycardia in the setting of fever/ sepsis, may be secondary to pneumonia and/ or right wrist abscess As per ICU notes between 08/30/17 and 08/31/17: Patient underwent endotracheal intubation with fiberoptic bronchoscopy in the setting of worsening labored breathing and progressive signs and symptoms of ARDS. Relatively unremarkable bronchoscopy reported. Sepsis from skin source vs lung source -current antibiotics is IV doxycycline, IV Primaxin, IV Linezolid (Zyvox); bactrim was ordered overnight but not given yet because PCP coverage was considered after the BAL (Bronchoalveolar lavage) was done -also on Acyclovir -blood culture from 08/29/17 grew yeast, also on caspofungin -As per Infectious disease, Follow cultures, blood cultures pending, if there is positive staph then vancomycin would be preferred agent over Linezolid ( Zyvox) as Zyvox is not bactercidal for staph -urine screen was done to identify whether patient had risks of IV drug use, Urine toxicology negative -preliminary hepatitis C antibody positive, Hepatitis IgM antibody non reactive , Hepatitis B core IgM antibody non-reactive, HIV negative -Antistreptolysin is flagged positive but as per infectious disease the level in not clinically significant for streptococci exposure -appreciate further Infectious disease recommendations as patient on multiple agents for bacterial, viral, fungal coverage - Infectious disease consult recommends caspofungin, IV Primaxin, and IV Vancomycin on the telephone consult -ophthalmology consult requested for evaluation of the eyes given yeast growth in blood culture -rule out endocarditis Cardiology - Transthoracic echocardiogram 08/30/17 * Sinus tachycardia is present during the study * The left ventricle is normal in size. * There is normal left ventricular wall thickness. * The left ventricular wall motion is normal. * Ejection Fraction = 55-60%. * The aortic valve leaflets are thickened and mildly calcified structure suggestive of bicuspid. Velocities are mildly elevated through the valve structure however leaflets appear mobile * No aortic regurgitation is present. -have asked cardiology to evaluate with transesophageal echocardiogram to rule out endocarditis Other Cardiovascular -aspirin and atorvastatin can be held for now while STEVEN is being pursued -on this admission patient had tachycardia due to sepsis -previous to the intubation, patient on metoprolol succinate extended release. since this cannot be crushed for effects to work, will switch to metoprolol 5 mg IV q6 hr prn for heart rate above 110 bpm. If a standing longer acting beta vijay needed, can consider metoprolol tartrate crushed and put through NG tube -pressors as needed to maintain a Mean arterial pressure above 65 Respiratory -is intubated on mechanical ventilation, s/p bronchoscopy with BAL ( Bronchoalveolar lavage), follow BAL results -pneumonia vs ARDS -nebulizers as needed -pulmonary consult request Autoimmune workup -rheumatoid factor pending, CHRISTIAN pending, glomerular basement membrane antibody pending Diabetes Type 2, pharmacy glycemic consult for diabetes management especially as patient received steroids which can drive hyperglycemia AJIT - resolved with IV fluids, continue to monitor renal function Nutrition: Tube feeds, Tube feeds to be held while planning for STEVEN DVT PROPHYLAXIS: Heparin sq Full Code Status Patient's Health Care Agent: Susan Ramesh [phone] Vital Signs: Date Time Temp Pulse Resp B/P (MAP) Pulse Ox O2 Delivery O2 Flow Rate FiO2 08/31/17 07:41 60 08/31/17 06:00 99 34 119/65 (83) 99 Mechanical Ventilator 60 08/31/17 05:20 60 08/31/17 05:19 65 08/31/17 04:00 98 Mechanical Ventilator 13.0 65 08/31/17 04:00 65 08/31/17 04:00 36.8 102 39 130/60 (83) 100 Mechanical Ventilator 65 08/31/17 03:17 65 08/31/17 02:01 65 08/31/17 02:00 104 36 119/65 (83) 97 Mechanical Ventilator 65 08/31/17 02:00 75 08/31/17 00:00 75 08/31/17 00:00 36.8 94 34 114/72 (86) 98 Mechanical Ventilator 75 08/30/17 23:59 98 Mechanical Ventilator 13.0 75 08/30/17 23:59 75 08/30/17 23:18 85 08/30/17 22:00 87 31 123/73 (90) 97 Mechanical Ventilator 85 08/30/17 20:00 36.7 101 28 99/57 (71) 99 Mechanical Ventilator 100 08/30/17 20:00 100 08/30/17 20:00 85 08/30/17 20:00 Mechanical Ventilator 100 08/30/17 18:00 108 16 99/64 (76) 100 Mechanical Ventilator 100 08/30/17 17:15 100 08/30/17 16:00 86 Oxymask 13.0 08/30/17 16:00 36.6 95 36 87/71 (76) 88 Oxymask 8.0 08/30/17 14:00 100 32 113/83 (93) 93 Nasal Cannula 5.0 08/30/17 13:33 101 34 125/71 (89) 91 08/30/17 13:24 86 29 92 Nasal Cannula 5.0 08/30/17 12:00 36.9 93 30 94 Nasal Cannula 5.0 08/30/17 11:05 90 Nasal Cannula 5.0 08/30/17 11:00 92 27 116/72 (87) 90 Nasal Cannula 5.0 08/30/17 10:46 96 32 110/80 (90) 92 08/30/17 10:00 100 33 96 08/30/17 09:00 98 31 90 Lab Results: Results Past 24 Hours Test 08/30/17 09:03 08/30/17 09:17 08/30/17 10:00 08/30/17 10:03 Range/Units Bedside Glucose 287 332 70-90 mg/dl Lactic Acid Level 2.7 0.4-2.0 mmol/L Absolute Reticulocyte Count 0.08 0.02-0.10 10^6/uL Percent Reticulocyte Count 2.0 0.5-2.0 % Prealbumin 8.9 20-40 mg/dl Hepatitis A IgM Antibody NON-REACTIVE NON-REACTIVE Hepatitis B Surface Antigen NEG NEG Hepatitis B Core IgM Antibody NON-REACTIVE NON-REACTIVE Hepatitis C Antibody PRELIM POS NEG HIV (1&2) Ab and P24 Ag, 4th Gener NEG NEG Anti-Streptolysin O Antibody Screen POS <200 IU IU/ml Anti-Streptolysin O Antibody Titer 200 <200 IU IU/ml Test 08/30/17 11:00 08/30/17 12:00 08/30/17 12:15 08/30/17 13:10 Range/Units Bedside Glucose 324 340 316 70-90 mg/dl Venous Blood pH 7.32 7.36-7.41 Venous Blood Partial Pressure CO2 41 38.0-50.0 mmHg Venous Blood Partial Pressure O2 25 mmHg Venous Blood HCO3 21 mmol/L Venous Blood Oxygen Saturation < 60.0 % Venous Blood Base Excess -4.8 mEq/L Lactic Acid Level 3.7 0.4-2.0 mmol/L Test 08/30/17 14:30 08/30/17 15:30 08/30/17 16:29 08/30/17 17:37 Range/Units Bedside Glucose 286 266 249 220 70-90 mg/dl Test 08/30/17 18:30 08/30/17 18:33 08/30/17 19:22 08/30/17 20:52 Range/Units Bedside Glucose 185 166 142 70-90 mg/dl Test 08/30/17 21:22 08/30/17 22:22 08/30/17 22:50 08/30/17 23:01 Range/Units Bedside Glucose 151 124 121 129 70-90 mg/dl Test 08/30/17 23:18 08/31/17 00:13 08/31/17 01:03 08/31/17 02:05 Range/Units Bedside Glucose 157 152 145 155 70-90 mg/dl Test 08/31/17 03:00 08/31/17 04:14 08/31/17 04:18 08/31/17 05:04 Range/Units Urine Color YELLOW Urine Appearance CLEAR CLEAR Urine pH 6.5 4.5-7.5 Urine Specific [place] 1.038 1.000-1.030 Urine Protein NEG NEG Urine Glucose (UA) NEG NEG Urine Ketones NEG NEG Urine Occult Blood NEG NEG Urine Nitrite NEG NEG Urine Bilirubin NEG NEG Urine Urobilinogen POS NEG Urine Leukocyte Esterase TRACE NEG Urine WBC (Auto) 1-5 0-5 /hpf Urine RBC (Auto) 0-4 0-4 /hpf Urine Hyaline Casts (Auto) 1-5 0-5 /lpf Urine Epithelial Cells (Auto) >30 0-5 /lpf Urine Bacteria (Auto) NEG NEG Bedside Glucose 112 134 70-90 mg/dl White Blood Count 17.41 4.8-10.8 K/uL Red Blood Count 3.49 4.2-5.4 M/uL Hemoglobin 10.1 12.0-16.0 g/dL Hematocrit 30.2 37-47 % Mean Corpuscular Volume 86.5 80-100 fL Mean Corpuscular Hemoglobin 28.9 25-34 pg Mean Corpuscular Hemoglobin Concent 33.4 32-36 g/dl Platelet Count 241 130-400 K/uL Mean Platelet Volume 10.0 7.4-10.4 fL Neutrophils (%) (Auto) 87.1 % Lymphocytes (%) (Auto) 7.6 % Monocytes (%) (Auto) 4.7 % Eosinophils (%) (Auto) 0.0 % Basophils (%) (Auto) 0.1 % Neutrophils # (Auto) 15.16 1.4-6.5 K/uL Lymphocytes # (Auto) 1.33 1.2-3.4 K/uL Monocytes # (Auto) 0.82 0.11-0.59 K/uL Eosinophils # (Auto) 0.00 0-0.5 K/uL Basophils # (Auto) 0.01 0-0.2 K/uL RDW Standard Deviation 50.8 36.4-46.3 fL RDW Coefficient of Variation 15.9 11.5-14.5 % Immature Granulocyte % (Auto) 0.5 % Immature Granulocyte # (Auto) 0.09 0.00-0.02 K/uL Sodium Level 136 136-145 mmol/L Potassium Level 4.4 3.5-5.1 mmol/L Chloride Level 110 98-107 mmol/L Carbon Dioxide Level 21 21-32 mmol/L Anion Gap 5.0 3-11 mmol/L Blood Urea Nitrogen 14 7-18 mg/dl Creatinine 0.69 0.60-1.20 mg/dl Est Creatinine Clear Calc Drug Dose 120.2 ml/min Estimated GFR () 127.1 Estimated GFR (Non- 109.7 BUN/Creatinine Ratio 19.7 10-20 Random Glucose 102 70-99 mg/dl Calcium Level 8.1 8.5-10.1 mg/dl Phosphorus Level 4.4 2.5-4.9 mg/dl Magnesium Level 2.1 1.8-2.4 mg/dl Total Bilirubin 0.5 0.2-1 mg/dl Direct Bilirubin 0.2 0-0.2 mg/dl Aspartate Amino Transf (AST/SGOT) 51 15-37 U/L Alanine Aminotransferase (ALT/SGPT) 24 12-78 U/L Alkaline Phosphatase 93 45-117 U/L Total Protein 5.8 6.4-8.2 gm/dl Albumin 2.2 3.4-5.0 gm/dl Procalcitonin 14.51 0-0.5 ng/ml Test 08/31/17 06:04 08/31/17 07:40 08/31/17 08:05 Range/Units Bedside Glucose 166 127 149 70-90 mg/dl Microbiology Results 08/30/17 Fungal Smear - Final, Resulted 08/30/17 Fungal Culture, Resulted Pending 08/30/17 Acid Fast Stain, Received Pending 08/30/17 Mycobacterial Culture, Received Pending 08/30/17 Gram Stain - Final, Resulted 08/30/17 Bronchoalveolar Lavage Culture, Resulted Pending
[2017-08-31] MEDS ORDERED: METOPROLOL TARTRATE 1 MG/ML VIAL IV PRN (08:30)
[2017-08-31] MEDS ORDERED: VANCOMYCIN CONSULT ACTIVE PRN ×2 (08:30)
[2017-08-31] MEDS ORDERED: PEPTAMEN INTENSE VHP 1000ML BAG OG SCH (09:00)
[2017-08-31] MEDS: GABAPENTIN 600 MG TAB PO SCH ×4 (09:00→20:57)
[2017-08-31] MEDS ORDERED: VANCOMYCIN IV 2,000 MG in SODIUM CHLORIDE 0.9% 500ML 500 ML IV ONE (09:15)
--- NOTE | 2017-08-31 09:59 | Pharmacy Progress Note ---
Pharmacy Abx Initial Consult Date of Service August 31, 2017. Pharmacy Dosing Scope Date of Consult: 08/31/17 Consultation requested by: Dr. Green Pharmacy is consulted to re-initiate Vancomycin IV dosing therapy, order appropriate labs and adjust drug dose/frequency. Patient is also receiving Primaxin, Bactrim, Acyclovir, and Caspofungin for sepsis secondary to possible pulm vs skin source. Subjective Objective Height (Feet): 5 Height (Inches): 4.00 Weight (Kilograms): 96.300 Vital Signs (Past 12Hrs) Vital Signs Past 12 Hours Date Time Temp Pulse Resp B/P (MAP) Pulse Ox O2 Delivery O2 Flow Rate FiO2 08/31/17 08:00 96 Mechanical Ventilator 50 08/31/17 07:41 60 08/31/17 06:00 99 34 119/65 (83) 99 Mechanical Ventilator 60 08/31/17 05:20 60 08/31/17 05:19 65 08/31/17 04:00 98 Mechanical Ventilator 13.0 65 08/31/17 04:00 65 08/31/17 04:00 36.8 102 39 130/60 (83) 100 Mechanical Ventilator 65 08/31/17 03:17 65 08/31/17 02:01 65 08/31/17 02:00 104 36 119/65 (83) 97 Mechanical Ventilator 65 08/31/17 02:00 75 08/31/17 00:00 75 08/31/17 00:00 36.8 94 34 114/72 (86) 98 Mechanical Ventilator 75 08/30/17 23:59 98 Mechanical Ventilator 13.0 75 08/30/17 23:59 75 08/30/17 23:18 85 08/30/17 22:00 87 31 123/73 (90) 97 Mechanical Ventilator 85 Lab Results (24Hrs) Laboratory Tests (24 Hours) Test 08/30/17 12:15 08/31/17 04:18 Lactic Acid Level 3.7 mmol/L (0.4-2.0) *H White Blood Count 17.41 K/uL (4.8-10.8) H Red Blood Count 3.49 M/uL (4.2-5.4) L Hemoglobin 10.1 g/dL (12.0-16.0) L Hematocrit 30.2 % (37-47) L Mean Corpuscular Volume 86.5 fL (80-100) Mean Corpuscular Hemoglobin 28.9 pg (25-34) Mean Corpuscular Hemoglobin Concent 33.4 g/dl (32-36) Platelet Count 241 K/uL (130-400) Mean Platelet Volume 10.0 fL (7.4-10.4) Neutrophils (%) (Auto) 87.1 % Lymphocytes (%) (Auto) 7.6 % Monocytes (%) (Auto) 4.7 % Eosinophils (%) (Auto) 0.0 % Basophils (%) (Auto) 0.1 % Neutrophils # (Auto) 15.16 K/uL (1.4-6.5) H Lymphocytes # (Auto) 1.33 K/uL (1.2-3.4) Monocytes # (Auto) 0.82 K/uL (0.11-0.59) H Eosinophils # (Auto) 0.00 K/uL (0-0.5) Basophils # (Auto) 0.01 K/uL (0-0.2) Procalcitonin 14.51 ng/ml (0-0.5) H Micro Results Date/Time Source Procedure Growth Status 08/29/17 17:25 Blood Blood Culture - Preliminary YEAST Resulted 08/29/17 16:55 Blood Blood Culture - Preliminary NO GROWTH TO DATE. Resulted 08/29/17 20:30 Nasal MRSA DNA Surveillance Screen - Final Specimen Negative for MRSA by DNA Probe Complete 08/30/17 18:30 Bronchial Washings Right Middle Lobe Fungal Smear - Final Resulted 08/30/17 18:30 Bronchial Washings Right Middle Lobe Fungal Culture Pending Resulted 08/30/17 18:30 Bronchial Washings Right Middle Lobe Acid Fast Stain Pending Received 08/30/17 18:30 Bronchial Washings Right Middle Lobe Mycobacterial Culture Pending Received 08/30/17 18:30 Bronchial Washings Right Middle Lobe Gram Stain - Final Resulted 08/30/17 18:30 Bronchial Washings Right Middle Lobe Bronchoalveolar Lavage Culture Pending Resulted 08/29/17 00:00 Urine , Clean Catch Urine Culture - Preliminary PIN-POINT GROWTH PRESENT, REINCUBATING. Resulted Risk Factors for Resistance * Immunocompromised? * Antimicrobial use within the last 90 days Assessment & Plan Assessment 37 year old Hep C positive female receiving Primaxin, Bactrim PO, Acyclovir, + caspo for sepsis secondary to possible pulmonary/skin source? Caspo is covering yeast+ BC. Bactrim for PJP prophylaxis. If we are concerned for meningitis, would recommend changing primaxin to cefepime (+/- metronidazole) for better CSF penetration. Plan Stop linezolid and doxycycline and change to vancomycin for empiric therapy of sepsis. Continue other abx mentioned above (not pharmacy consult) Vancomycin IV * Loading dose: 2,000 mg (21 mg/kg) * Maintenance dose: 1,250 mg IV (14 mg/kg) every 10 hours * Goal trough level for sepsis : 15 to 20 mcg/mL * No trough/random level ordered at this time as it is just empiric therapy. Will order trough if vanco continued beyond 48hrs. Pharmacy will continue to follow and will adjust dose/frequency as necessary. Thank you.
--- NOTE | 2017-08-31 11:26 | Pulmonary Consultation ---
History General Date of Service: August 31, 2017. Stated Complaint: Sepsis with associated hypercapnia, hypoxemia and abnormal CT imaging: HPI The patient is a 37 year old female who presents to [facility] with complaints of Sepsis. The patient's primary care provider is Irvin Iverson M.D.. 37-year-old female Significant PmHx: Hypertension, obesity, type 2 diabetes, coronary artery disease/PTCA, lumbosacral degenerative disc disease, recurrent pneumonias, my clue nodular pulmonary disease, tobacco dependence, GERD, lower extremity DVT--not anticoagulation. Who presented to the emergency room with fever and chills and has had progressive respiratory insufficiency and abnormal bilateral groundglass/infiltrative process on CT imaging. Patient required prophylactic intubation and underwent bronchoscopy with bronchial lavage. She is currently being mechanically ventilated with a high minute ventilation at 17 L/min with her most recent ABG 7.4 /166/21 on mechanical ventilation of AC, rate set at 20, tidal volume set at 400 and PEEP set at 10 but setting a self rate of 36 breaths per minute. She is currently intubated and sedated and I cannot obtain any history outside of that from the medical records are the day staff. Current in-house workup Serum studies Hepatitis-C antibody: Positive Anti-Streptolysinlysine screening/Titer: Positive/ >200 Hepatitis-B antigen: Negative WBC: [id number] ESR: 31 D-dimer: 4930 CRP: 10.80 Procalcitonin: 8.0123.05--14.51 Albumin: 2.2 Pre-albumin: 8.7 Lactic acid: 5.0-- 2.6--2.7---3.7 Pro-BNP: 847 Total creatinine kinase: 488 CK-MB: 12.2 Troponin: <0.015 EKG: Sinus tachycardia rate 115 EKG 08/30/2017 at 10 100 hours: Normal sinus rhythm, QTC/QTC: 408/510 Echocardiogram 08/30/2017 LV: Mild LVH, EF=55-60% RV: Normal in size and function AV: Bicuspid valve, Mild aortic insufficiency MV: Trace mitral regurgitation TV: Trace tricuspid regurgitation PV: Poorly visualized RA: Normal in size LA: Normal in size IVC: Normal diameter and respiratory variation No pericardial effusion Microbiology Blood: Yeast Radiology CXR 08/29/2017: Hilar fullness, peribronchial cuffing, diffuse interstitial thickening, possible micronodular disease CTA chest 08/30/2017: Thyroid: Enlarge nodule with left cyst Mediastinum/hilum: Diffuse adenopathy Lung: Diffuse bilateral interstitial/ground-glass changes CT abdomen 08/30/2017 Lungs: Diffuse infiltrative pattern bilaterally, progression from earlier CT of the chest on the same day Hepatosplenomegaly Colonic diverticulosis without signs of diverticulitis CXR 08/31/2017: Increased bilateral airspace opacities, ETT 4cm above the misti, NG subdiaphragmatic Pending Venous Doppler evaluation lower extremities Previous workup Cardiac Echocardiogram 08/31/2011 LV: Normal left ventricular size and systolic function, EF equal 60%, mild LVH RV: Normal in size and function AV: Bicuspid valve, Mild aortic insufficiency MV: Mild mitral regurgitation TV: Mild tricuspid regurgitation PV: No pulmonic insufficiency RA: Normal in size LA: Normal in size Cardiac Echocardiogram 06/02/2014 LV: Mild LVH, EF=55-60%, RV: Normal in size and function AV: Bicuspid valve, Mild aortic insufficiency MV: Trace mitral regurgitation TV: Trace tricuspid regurgitation PV: No pulmonic insufficiency RA: Normal in size LA: Normal in size IVC: Normal collapsibility index Non-contrast CT thorax 01/06/2015: Lungs and pleura: Minimal interstitial changes Mediastinum/hilar region: No significant mediastinal adenopathy RLL (RB10) thin walled 15mm cyst Noncontrast CT chest 11/09/2016 Thyroid: Enlarged thyroid, 18 mm left lobe thyroid nodule Lungs: Patchy left lower lobe airspace opacities/multiple tiny nodules Mediastinum: Lymph nodes upper limits of normal Microbiology history Groin abscess 01/05/2011: Corynebacterium, coag-negative Staphylococcus Urine 01/13/2012: Gardnerella, lactobacillus Urine 07/15/2012: Group a beta strep Urine 08/07/2012: Lactobacillus species Urine 09/03/2012: Lactobacillus species Urine 12/02/2012: Lactobacillus species Scalp wound/abscess 05/05/2015: Staph aureus/MSSA Pelvic abscess 10/15/2015: Corynebacterium species, Actinomyces Right arm 06/02/2017 abscess: Pseudomonas, coag-negative Staph coccus Current pulmonary medications 1. Caspofungin 2. Pantoprazole 3. Bactrim 4. Vancomycin 5. Imipenem/Cilastin 6. Enoxaparin 40 mg q.day 7. Methylprednisolone 40 mg q.8 hours (equivalent dose of prednisone 150 daily) 8. Xopenex for puffs Q 4 hours 9. Atrovent 4 puffs q.4 hours 10. Acyclovir 500 mg q.8 hours PmHx: 1. Abnormal chest xray 2. Lower extremity DVT-not on anticoagulation 3. Non STEMI 4. History of infectious colitis 5. History recurrent multifocal cellulitis 6. Diagnosis of asthma 7. Major depression/suicide attempt--status post her mother's 8. History of Acute renal insufficiency 9. Angular cheilitis (528.5) 10. Aortic regurgitation 11. Asthma 12. Bicuspid aortic valve 13. Chronic pain 14. Diabetes mellitus 15. Diabetic peripheral neuropathy associated with type 2 diabetes mellitus 16. Disc degeneration, lumbosacral 17. Dyslipidemia 18. Esophageal reflux 19. History of scabies 20. Hypertension 21. Mitral regurgitation 22. Nicotine dependence 23. Obesity 24. Oral thrush 25. Vitamin B12 deficiency 26. GERD PsHx: 1. Hand surgery 2. Cholecystectomy 3. PTCA Family History: Diabetes, gallbladder disease, heart disease, lung disease, hypertension, kidney stone, valvular heart disease Social history: Tobacco: Current every day smoker IV drug use: Per the records none Marital status: Single Housing status: Lives with family Occupational status: Unemployed Home medications: Acetaminophen (Tylenol), 1,000 MG PO prn ud Aspirin (Aspirin Ec), 81 MG PO DAILY Atorvastatin (Lipitor), 80 MG PO HS Clopidogrel (Plavix), 75 MG PO QAM Cranberry (Vaccinium Macrocarp (Cranberry), 1 TAB PO UD Esomeprazole Magnesium (Nexium), 40 MG PO BID Gabapentin (Neurontin), 600 MG PO TID Lisinopril (Zestril), 10 MG PO DAILY Metformin Hcl (Glucophage Ext Rel), 1,000 MG PO BID Metoprolol Succ (Toprol Xl) (Toprol-Xl), 25 MG PO QAM Nitroglycerin (Nitrostat), 0.4 MG UT PRN Albuterol Hfa (Ventolin Hfa), 2 PUFFS INH Q6H PRN for SOB/Wheezing Allergies 1. Tramadol 2. Azithromycin TABS 3. Egg or Chicken-derived Drugs 4. Keflex TABS Historian: EMS Review of Systems 15 point review of systems unable to obtain as the patient is currently intubated and sedated Past Medical History Past Medical History: Please refer to HPI Past Surgical History: Please refer to HPI Family History Diabetes mellitus FH: gallbladder disease FH: heart disease FH: lung disease Hypertension Kidney stones Please refer to HPI Parent: Heart Disease, Sibling: Cancer Social History Hx Tobacco Use In Past Year?: Yes (1/2 PPD) Smoking Status: Current Every Day Smoker Alcohol: no current use Marital status: single Housing status: lives with family Occupational Status: unemployed Immunizations History of Influenza Vaccine: N/A History of Tetanus Vaccine?: Yes Tetanus Immunization Date: Aug 16, 2010 History of Pneumococcal: No History of Hepatitis B Vaccine: No History of MDRO History of MDRO: No Allergies Coded Allergies: Cephalexin (Verified Allergy, Intermediate, YEAST INFECTIONS, 08/29/17) Egg (Verified Allergy, Intermediate, GI UPSET, 08/29/17) Lidocaine (Verified Allergy, Intermediate, HIVES, 08/29/17) Procaine (Verified Allergy, Intermediate, HIVES, 08/29/17) Penicillins (Verified Allergy, Mild, HAD NO PROBLEM WITH ZOSYN, 08/29/17) [place] (Verified Allergy, Mild, HIVES, 08/29/17) Tramadol (Verified Allergy, Unknown, SEIZURES, 08/29/17) Azithromycin (Verified Adverse Reaction, Mild, STOMACH PAINS, 08/29/17) Current Medications Reported Home Medications Medications Dose Route/Sig Max Daily Dose Days Date Category Dose Instructions Cranberry (Cranberry (Vaccinium Macrocarp) Unknown Strength Tab 1 Tab PO UD 08/29/17 Reported Neurontin (Gabapentin) 600 Mg Tab 600 Mg PO TID 06/02/17 Reported Tylenol (Acetaminophen) 500 Mg Tab 1,000 Mg PO PRN UD 03/01/17 Reported Nitrostat (Nitroglycerin) 0.4 Mg Tab 0.4 Mg UT PRN 11/12/16 Reported NEEDED FOR CHEST PAIN : ONE TABLET UNDER THE TONGUE EVERY 5 MINUTES UP TO 3 DOSES. Toprol-Xl (Metoprolol Succinate) 25 Mg Tabcr 25 Mg PO QAM 11/12/16 Reported Zestril (Lisinopril) 10 Mg Tab 10 Mg PO DAILY 11/12/16 Reported Nexium (Esomeprazole Magnesium) 40 Mg Capcr 40 Mg PO BID 11/12/16 Reported Plavix (Clopidogrel Bisulfate) 75 Mg Tab 75 Mg PO QAM 11/12/16 Reported Lipitor (Atorvastatin Calcium) 80 Mg Tab 80 Mg PO HS 11/12/16 Reported Aspirin Ec (Aspirin) 81 Mg Tab 81 Mg PO DAILY 11/12/16 Reported TAKE THIS MED ON A FULL STOMACH. Ventolin Hfa (Albuterol) 200 Puffs/71966 Mcg Aers 2 Puffs INH Q6H PRN 11/09/16 Reported Glucophage Ext Rel (Metformin Hcl) 1,000 Mg Tab 1,000 Mg PO BID 03/17/15 Reported Physical Physical Exam Vital Signs: Date Time Temp Pulse Resp B/P (MAP) Pulse Ox O2 Delivery O2 Flow Rate FiO2 08/31/17 10:00 93 35 113/70 (84) 95 Mechanical Ventilator 50 08/31/17 09:00 95 34 124/59 (80) 96 Mechanical Ventilator 50 08/31/17 08:00 36.8 97 33 114/66 (82) 96 Mechanical Ventilator 50 08/31/17 08:00 96 Mechanical Ventilator 50 08/31/17 07:41 60 08/31/17 07:00 95 35 119/71 (87) 98 08/31/17 06:00 99 34 119/65 (83) 99 Mechanical Ventilator 60 08/31/17 05:20 60 08/31/17 05:19 65 08/31/17 04:00 98 Mechanical Ventilator 13.0 65 08/31/17 04:00 65 08/31/17 04:00 36.8 102 39 130/60 (83) 100 Mechanical Ventilator 65 08/31/17 03:17 65 08/31/17 02:01 65 08/31/17 02:00 104 36 119/65 (83) 97 Mechanical Ventilator 65 08/31/17 02:00 75 08/31/17 00:00 75 08/31/17 00:00 36.8 94 34 114/72 (86) 98 Mechanical Ventilator 75 08/30/17 23:59 98 Mechanical Ventilator 13.0 75 08/30/17 23:59 75 08/30/17 23:18 85 08/30/17 22:00 87 31 123/73 (90) 97 Mechanical Ventilator 85 08/30/17 20:00 36.7 101 28 99/57 (71) 99 Mechanical Ventilator 100 08/30/17 20:00 100 08/30/17 20:00 85 08/30/17 20:00 Mechanical Ventilator 100 08/30/17 18:00 108 16 99/64 (76) 100 Mechanical Ventilator 100 08/30/17 17:15 100 08/30/17 16:00 86 Oxymask 13.0 08/30/17 16:00 36.6 95 36 87/71 (76) 88 Oxymask 8.0 08/30/17 14:00 100 32 113/83 (93) 93 Nasal Cannula 5.0 08/30/17 13:33 101 34 125/71 (89) 91 08/30/17 13:24 86 29 92 Nasal Cannula 5.0 08/30/17 12:00 36.9 93 30 94 Nasal Cannula 5.0 08/30/17 11:05 90 Nasal Cannula 5.0 08/30/17 11:00 92 27 116/72 (87) 90 Nasal Cannula 5.0 General Appearance: other (Currently intubated sedated appears comfortable on vent but notable tachypnea) Head: NORMOCEPHALIC, ATRAUMATIC Eyes: PERRLA, NO DISCHARGE, EOMI, SCLERAE NORMAL ENT: other (ET tube in place unable to verify position secondary to ET tube rich[place] position, unable to evaluate posterior pharynx or tonsils as the patient has Mallampati of 1 with ET tube in place) Neck: NORMAL RANGE OF MOTION, TRACHEA MIDLINE Respiratory: other (Bilateral rhonchi appreciated, thoracic ultrasound shows B- lines bilaterally right greater than left at the apices) Cardiovasular: other (Tachycardic distant heart sounds 3 out of 6 systolic murmur best appreciated right upper sternal border) Abdomen: other (Obese, no guarding appreciated but patient currently sedated, no hepatosplenomegaly noted) Genitourinary - Female: EXTERNAL GENITALIA NORMAL Back: NORMAL INSPECTION, NO MIDLINE TENDERNESS, NO CVA TENDERNESS Upper Extremities: NO EDEMA, NO DEFORMITY, NORMAL ROM Lower Extremities: NO EDEMA, NO DEFORMITY, NORMAL ROM Pulses: carotid (R) (2+), carotid (L) (2+), posterior tibial (R) (2+), posterior tibial (L) (2+) Neuro: other (Intubated sedated, cranial nerves II through XII grossly intact, patient withdraws to painful stimulus bilaterally,) Reflexes: biceps (R) (1+), bicpes (L) (1+), achilles (R) (1+), achilles (L) (1+ ) Babinski Testing: right (downgoing), left (equivocal) Psychiatric: other (Intubated sedated) Diagnostics Labs Results Past 24 Hours Test 08/30/17 11:00 08/30/17 12:00 08/30/17 12:15 08/30/17 13:10 Range/Units Bedside Glucose 324 340 316 70-90 mg/dl Venous Blood pH 7.32 7.36-7.41 Venous Blood Partial Pressure CO2 41 38.0-50.0 mmHg Venous Blood Partial Pressure O2 25 mmHg Venous Blood HCO3 21 mmol/L Venous Blood Oxygen Saturation < 60.0 % Venous Blood Base Excess -4.8 mEq/L Lactic Acid Level 3.7 0.4-2.0 mmol/L Test 08/30/17 14:30 08/30/17 15:30 08/30/17 16:29 08/30/17 17:37 Range/Units Bedside Glucose 286 266 249 220 70-90 mg/dl Test 08/30/17 18:30 08/30/17 18:33 08/30/17 19:22 08/30/17 20:52 Range/Units Bedside Glucose 185 166 142 70-90 mg/dl Test 08/30/17 21:22 08/30/17 22:22 08/30/17 22:50 08/30/17 23:01 Range/Units Bedside Glucose 151 124 121 129 70-90 mg/dl Test 08/30/17 23:18 08/31/17 00:13 08/31/17 01:03 08/31/17 02:05 Range/Units Bedside Glucose 157 152 145 155 70-90 mg/dl Test 08/31/17 03:00 08/31/17 04:14 08/31/17 04:18 08/31/17 05:04 Range/Units Urine Color YELLOW Urine Appearance CLEAR CLEAR Urine pH 6.5 4.5-7.5 Urine Specific [place] 1.038 1.000-1.030 Urine Protein NEG NEG Urine Glucose (UA) NEG NEG Urine Ketones NEG NEG Urine Occult Blood NEG NEG Urine Nitrite NEG NEG Urine Bilirubin NEG NEG Urine Urobilinogen POS NEG Urine Leukocyte Esterase TRACE NEG Urine WBC (Auto) 1-5 0-5 /hpf Urine RBC (Auto) 0-4 0-4 /hpf Urine Hyaline Casts (Auto) 1-5 0-5 /lpf Urine Epithelial Cells (Auto) >30 0-5 /lpf Urine Bacteria (Auto) NEG NEG Bedside Glucose 112 134 70-90 mg/dl White Blood Count 17.41 4.8-10.8 K/uL Red Blood Count 3.49 4.2-5.4 M/uL Hemoglobin 10.1 12.0-16.0 g/dL Hematocrit 30.2 37-47 % Mean Corpuscular Volume 86.5 80-100 fL Mean Corpuscular Hemoglobin 28.9 25-34 pg Mean Corpuscular Hemoglobin Concent 33.4 32-36 g/dl Platelet Count 241 130-400 K/uL Mean Platelet Volume 10.0 7.4-10.4 fL Neutrophils (%) (Auto) 87.1 % Lymphocytes (%) (Auto) 7.6 % Monocytes (%) (Auto) 4.7 % Eosinophils (%) (Auto) 0.0 % Basophils (%) (Auto) 0.1 % Neutrophils # (Auto) 15.16 1.4-6.5 K/uL Lymphocytes # (Auto) 1.33 1.2-3.4 K/uL Monocytes # (Auto) 0.82 0.11-0.59 K/uL Eosinophils # (Auto) 0.00 0-0.5 K/uL Basophils # (Auto) 0.01 0-0.2 K/uL RDW Standard Deviation 50.8 36.4-46.3 fL RDW Coefficient of Variation 15.9 11.5-14.5 % Immature Granulocyte % (Auto) 0.5 % Immature Granulocyte # (Auto) 0.09 0.00-0.02 K/uL Sodium Level 136 136-145 mmol/L Potassium Level 4.4 3.5-5.1 mmol/L Chloride Level 110 98-107 mmol/L Carbon Dioxide Level 21 21-32 mmol/L Anion Gap 5.0 3-11 mmol/L Blood Urea Nitrogen 14 7-18 mg/dl Creatinine 0.69 0.60-1.20 mg/dl Est Creatinine Clear Calc Drug Dose 120.2 ml/min Estimated GFR () 127.1 Estimated GFR (Non- 109.7 BUN/Creatinine Ratio 19.7 10-20 Random Glucose 102 70-99 mg/dl Calcium Level 8.1 8.5-10.1 mg/dl Phosphorus Level 4.4 2.5-4.9 mg/dl Magnesium Level 2.1 1.8-2.4 mg/dl Total Bilirubin 0.5 0.2-1 mg/dl Direct Bilirubin 0.2 0-0.2 mg/dl Aspartate Amino Transf (AST/SGOT) 51 15-37 U/L Alanine Aminotransferase (ALT/SGPT) 24 12-78 U/L Alkaline Phosphatase 93 45-117 U/L Total Protein 5.8 6.4-8.2 gm/dl Albumin 2.2 3.4-5.0 gm/dl Procalcitonin 14.51 0-0.5 ng/ml Test 08/31/17 06:04 08/31/17 07:40 08/31/17 08:05 08/31/17 09:13 Range/Units Bedside Glucose 166 127 149 167 70-90 mg/dl Test 08/31/17 10:32 Range/Units Bedside Glucose 177 70-90 mg/dl Microbiology Results 08/30/17 Fungal Smear - Final, Resulted 08/30/17 Fungal Culture, Resulted Pending 08/30/17 Acid Fast Stain, Received Pending 08/30/17 Mycobacterial Culture, Received Pending 08/30/17 Gram Stain - Final, Resulted 08/30/17 Bronchoalveolar Lavage Culture, Resulted Pending Diagnostic Radiology Please refer to HPI EKG Please refer to HPI Impression Assessment and Plan 37-year-old female in respiratory failure: #1 Mechanical ventilator: Patient in hypoxic and hypercapnic respiratory insufficiency currently on mechanical ventilation at 7 cc/kg for lung volume protection. Patient continues to be notably tachypneic breathing 15-17 breaths per minute over current setting. At this time the patient is currently hyperventilating and I do agree with recent changes in her mechanical ventilation with a switch of her PEEP to 8 and mild titration down on her FiO2 from 60% to 50%. #2 Hypercapnia/Hypoxemia t: Patient most likely has an underlying atypical pneumonia as she is having an elevated pro-calcitonin as well as bilateral infiltrative process. As her HIV status is negative via serum evaluation and she is mounted appropriate immune response with elevated neutrophil percentage she is most likely not an immunocompetent states of covering at this time with Bactrim and acyclovir is most likely not warranted but will defer antibiotic/ antifungal/antivirals to infectious disease at this time. Patient did have a positive blood fungal culture and is currently treated with caspofungin and transesophageal echocardiogram pending. Atypical etiology such as cryptogenic organizing pneumonia, hypersensitivity pneumonia or even low probability such as acute eosinophilic/chronic use of pneumonias or granulomatous organizing pneumonia are possible but the patient is currently being covered with 150 mg per day of prednisone equivalent/methylprednisolone. The highest dose of steroids most likely necessary would be a prednisone equivalent of 1.5mg/Kg of ideal body weight would be 72 mg of methylprednisolone daily. We will switch her methylprednisolone dosing at this time to 80 mg daily/40 mg twice daily.
--- NOTE | 2017-08-31 11:35 | Pharmacy Progress Note ---
Pharmacy Glycemic Short Note 2 Date of Service August 31, 2017. OUTPATIENT ANTIDIABETIC REGIMEN: * Metformin 1000mg PO BID Test 08/30/17 12:00 08/30/17 13:10 08/30/17 14:30 08/30/17 15:30 Bedside Glucose 340 mg/dl (70-90) 316 mg/dl (70-90) 286 mg/dl (70-90) 266 mg/dl (70-90) Test 08/30/17 16:29 08/30/17 17:37 08/30/17 18:33 08/30/17 19:22 Bedside Glucose 249 mg/dl (70-90) 220 mg/dl (70-90) 185 mg/dl (70-90) 166 mg/dl (70-90) Test 08/30/17 20:52 08/30/17 21:22 08/30/17 22:22 08/30/17 22:50 Bedside Glucose 142 mg/dl (70-90) 151 mg/dl (70-90) 124 mg/dl (70-90) 121 mg/dl (70-90) Test 08/30/17 23:01 08/30/17 23:18 08/31/17 00:13 08/31/17 01:03 Bedside Glucose 129 mg/dl (70-90) 157 mg/dl (70-90) 152 mg/dl (70-90) 145 mg/dl (70-90) Test 08/31/17 02:05 08/31/17 04:14 08/31/17 04:18 08/31/17 05:04 Bedside Glucose 155 mg/dl (70-90) 112 mg/dl (70-90) 134 mg/dl (70-90) Random Glucose 102 mg/dl (70-99) Test 08/31/17 06:04 08/31/17 07:40 08/31/17 08:05 08/31/17 09:13 Bedside Glucose 166 mg/dl (70-90) 127 mg/dl (70-90) 149 mg/dl (70-90) 167 mg/dl (70-90) Test 08/31/17 10:32 Bedside Glucose 177 mg/dl (70-90) ASSESSMENT: * 37 year old female with acute hypoxic respiratory failure, tachycardia, fever/ sepsis, possibly secondary to pneumonia and/or right wrist abscess * On multiple antibiotics, Doxycycline and Zyvox just changed to IV Vancomycin today * On IV Solu-medrol 40mg IV Q8H * Tube feeds were at 20cc/hr prior to being held for STEVEN today, goal 50cc/hr * Patient has been maintained on IV insulin drip since 08/29 d/t all of the above compounding factors; current rate down to 3.5units/hr * Will eventually begin basal insulin in anticipation for drip to be discontinued PLAN FOR INPATIENT GLYCEMIC CONTROL: * Hold outpatient oral diabetes medications * IV Insulin infusion * Goal range - widened to decrease blood sugar checks - 120mg-200mg/dl * Basal insulin * will wait another day before adding basal insulin, as patient is still in critical condition with many changing factors * Bolus insulin * NovoLog Q4H to cover carbohydrates in Peptamen Bariatric - held when TFs held * Nutritional / Prandial insulin per carb ratio of 1 unit per 3 grams CHO consumed PLAN FOR DISCHARGE: * A1c = 9.7% - recommend adding basal insulin to outpatient regimen
[2017-08-31] MEDS ORDERED: MIDAZOLAM HCL 5 MG/ML 1 ML VIAL IV STA (11:37)
[2017-08-31] MEDS ORDERED: FENTANYL CITRATE INJ 50 MCG/1 ML 2 ML VIAL IV ONE (11:45)
[2017-08-31] MEDS: PANTOprazole INJ 40 MG in SYRINGE 0 ML IV SCH (11:50)
--- NOTE | 2017-08-31 11:51 | Procedure Note ---
Procedure Note Procedure Date August 31, 2017. Procedure Description Procedure Name: Gastric lavage Procedure time out: side/site verified, patient ID confirmed, correct procedure Consent obtained: emergent consent implied (Not applicable) Time of procedure: 08:45 Performed by: physician public address systems mechanic (Ja Roberto PA-C) Indications: other (empty stomach of tube feeds in preparation for STEVEN) Contraindications: none Description: OG tube was advanced to maximize suction of stomach contents. OG tube advanced from 53 cm to 65 cm at the lip. A total of 420 mls of sterile water was instilled until secretions were nearly clear. OGT was then placed on LIWS. A total of 400 mls was collected from suction prior to the STEVEN. The patient tolerated the procedure well and had no complications Complications: none Patient tolerated procedure: well Post-procedure vital signs: reviewed and stable
--- NOTE | 2017-08-31 12:27 | DIAGNOSTIC IMAGING REPORT ---
CHEST ONE VIEW PORTABLE CLINICAL HISTORY: 37 years-old Female presenting with Verify ET tube placement and OGT placement. TECHNIQUE: Portable upright AP view of the chest was obtained. COMPARISON: Sinusitis 08/2017 at 6:34 AM. FINDINGS: Endotracheal tube remains in the mid thoracic trachea over 4 cm from the misti. Nasogastric tube descends below the diaphragm though is looped and directed superiorly, terminating in the distal esophagus. Cardiac silhouette mildly prominent. Pulmonary vascular prominence. Mild diffuse patchy hazy lung opacities stable to slightly decreased from prior. No large effusion or pneumothorax. Osseous structures normal. Numerous external leads project over the lower mediastinum and upper abdomen. IMPRESSION: 1. Nasogastric tube is looped in the proximal stomach, directed superiorly and terminates in the distal esophagus. Repositioning recommended. 2. Appropriately positioned endotracheal tube. 3. Diffuse lung opacities stable to slightly decreased from prior. Electronically signed by: Irvin Fox M.D. 08/31/2017 12:26 PM Dictated Date/Time: 08/31/2017 12:24 PM
--- NOTE | 2017-08-31 13:06 | TEE ---
*NOTICE TO RECEIVING [employer] This information is strictly Confidential and protected under [place] law. [place] law prohibits you from making any further disclosure of this information unless further disclosure is expressly permitted by the written consent of the person to whom it pertains or is authorized by law. A general authorization for the release of medical or other information is not sufficient for this purpose. Hospital accepts no responsibility if the information is made available to any other person, INCLUDING THE PATIENT. Interpretation Summary * Name: ROGER WEEKS Study Date: 08/31/2017 10:54 AM BP: 113/70 mmHg * Patient Location: E107 HR: 120 * : 1980 (M/d/yyyy) Gender: Female * Age: 37 yrs Ethnicity: [place] Weight: 212 lb * Ordering Physician: Paresh Gonzales MD, [facility] * Performed By: Yadira Drew [facility] * * Reason For Study: ? AORTIC VEGETATION / POSITIVE BLOOD CULTURES * -- Conclusions -- * See full dictated report Procedure Details * STEVEN Probe #1 utilized for procedure. * The study was performed at bedside. * Time out was conducted by the physician, nurse, and residential tech with positive identification of patient and procedure. * An intravenous line was placed. A topical anesthetic agent was used for oropharangeal anesthesia. A bite block was inserted. * The patient's vital signs, including blood pressure, heart rate, pulse oximetry and cardiac rhythm were monitored throughout the procedure . * A multifrequency, multiplane transesopheageal echocardiographic endoscope was inserted and manipulated in the standard fashion to achieve multiplane views. * The transesophageal probe was passed without difficulty. * The usual views were obtained; basal, mid-esophageal, transgastric and aortic views. * A 2D transesophageal echocardiogram with spectral and color flow Doppler was performed. * A 2D transesophageal echocardiogram with Doppler and color flow Doppler was performed.
--- NOTE | 2017-08-31 13:43 | CARDIOLOGY CONSULTATION ---
DATE OF CONSULTATION: 08/31/2017 REFERRING PHYSICIANS: Enrique Jaquez DO and Dr. Orlin Green. INDICATIONS: Fungal septicemia, history of possibly bicuspid aortic valve. HISTORY OF PRESENT ILLNESS: The patient is a 37-year-old female with complex history of poorly controlled diabetes mellitus, atherosclerotic coronary disease with prior history of PTCA, hypertension, dyslipidemia, asthmatic lung disease, recurrent skin abscesses per records with extensive history as described. She presents this admission with acute worsening cough, shortness of breath, headache, tachycardia, and leukocytosis. The patient had progression in pulmonary decline and ultimately required intubation. Initial blood cultures are possibly growing yeast. She is referred for consideration of transesophageal echocardiogram. The patient intubated and sedated and unable to offer any additional information. Echocardiogram study of fair technical quality demonstrated sinus tachycardia, preserved LV systolic function. The aortic valvular leaflets appeared thickened suggestive of bicuspid aortic valve with velocities elevated through valve structure. No distinct vegetations were observed. Chest x-ray demonstrates increasing diffuse hazy opacity suggestive of either pneumonia or ARDS per records. ALLERGIES: AZITHROMYCIN, CEPHALEXIN\ EGGS, LIDOCAINE, PENICILLIN, PROCAINE, STRAWBERRY, AND TRAMADOL. MEDICATIONS: Per list prior to hospitalization were acetaminophen, albuterol, aspirin, atorvastatin, clopidogrel, cranberry, gabapentin, Nexium with lisinopril, metformin, metoprolol 25 mg q.a.m., and nitroglycerin p.r.n. PAST SURGICAL PROCEDURE: Notable for emergent cardiac catheterization done in 10/2016 demonstrating 2-vessel coronary disease with severe mid ramus and severe circumflex stenoses with drug-eluting stents to both vessels administered. The patient's past surgical history also includes prior cholecystectomy, history of recurrent renal lithiasis. FAMILY HISTORY: Positive for heart disease and lung disease. Mother had myocardial infarction at age 38. SOCIAL HISTORY: The patient is unable to give additional information, but per records carries a history of chronic tobacco use. PHYSICAL EXAMINATION: GENERAL: The patient is intubated and ventilated. VITAL SIGNS: Heart rate is 100, blood pressure is 119/65. NECK: Thick. There are orogastric and endotracheal oral tubes in place. LUNGS: Reveal coarse crackles with upper airway sounds. CARDIOVASCULAR: Regular. There is no S3 gallop. ABDOMEN: Soft. EXTREMITIES: Without cyanosis or clubbing. There is trace pedal edema at most. LABORATORY DATA: Reviewed. EKGs reveal sinus and sinus tachycardia but no ST segment changes or abnormalities. Echocardiogram as described in HPI demonstrated possibly bicuspid aortic valve as previously observed with poor visualization of leaflets, mild increase in LV outflow tract velocities, preserved LV systolic function. IMPRESSION: A 37-year-old female admitted with acute sepsis, possible fungal with respiratory failure and intubation. She has a probable bicuspid valve by past echocardiograms and given the septicemia, increased velocities through valve on resting study, she is referred for transesophageal echocardiogram. This will be performed later this morning. Tube feeds have been held. The patient sedated. Procedure being performed urgently. YOUSIFD
--- NOTE | 2017-08-31 14:19 | DIAGNOSTIC IMAGING REPORT ---
KUB CLINICAL HISTORY: 37 years-old Female presenting with Verify placement of OGT. TECHNIQUE: Single supine view of the abdomen was obtained. COMPARISON: 02/12/[address] from the previous day. FINDINGS: Orogastric tube is looped within the distal esophagus and directed superiorly. The terminus is not visualized as it is beyond the superior extent of the [id number]. Cholecystectomy clips noted. Nonobstructive bowel gas pattern. No gross pneumoperitoneum. Allowing for bowel gas and stool, no calcifications to suggest nephrolithiasis. Posterior lumbar fusion hardware. Lung bases clear. IMPRESSION: 1. The orogastric tube is looped in the distal esophagus and directed superiorly. The terminus is not visualized as it is superior to the [id number]. Repositioning recommended. The report will be called/faxed according to standard departmental protocol. Electronically signed by: Irvin Fox M.D. 08/31/2017 2:17 PM Dictated Date/Time: 08/31/2017 2:16 PM
--- NOTE | 2017-08-31 14:22 | DIAGNOSTIC IMAGING REPORT ---
KUB CLINICAL HISTORY: 37 years-old Female presenting with Verify position of new OGT. TECHNIQUE: Single supine view of the abdomen was obtained. COMPARISON: 08/31/2017 at 1:22 PM. FINDINGS: The orogastric tube has been repositioned, no longer looped in the esophagus but directed inferiorly. The terminus is located in the body the stomach with the sidehole at the fundus. Cholecystectomy clips noted. Nonobstructive bowel gas pattern. No gross pneumoperitoneum. Allowing for bowel gas and stool, no calcifications to suggest nephrolithiasis. Posterior lumbar fusion hardware of L4-S1. Lung bases clear. IMPRESSION: 1. Orogastric tube terminus and sidehole terminate within the stomach. Electronically signed by: Irvin Fox M.D. 08/31/2017 2:20 PM Dictated Date/Time: 08/31/2017 2:19 PM
--- NOTE | 2017-08-31 15:16 | DIAGNOSTIC IMAGING REPORT ---
VENOUS DOPPLER LWR EXT BILA CLINICAL HISTORY: 37 years-old Female presenting with hypoxia. TECHNIQUE: Real-time grayscale and color and spectral Doppler ultrasound imaging of the veins of the bilateral lower extremities was performed. Compression and augmentation were also utilized. COMPARISON: 02/14/2010. FINDINGS: Right: Common femoral vein: Patent. Greater saphenous vein: Patent. Deep femoral vein: Patent. Femoral vein: Patent. Popliteal vein: Patent. Calf veins: Patent. Left: Common femoral vein: Patent. Greater saphenous vein: Patent. Deep femoral vein: Patent. Femoral vein: Patent. Popliteal vein: Patent. Calf veins: Patent. Other: None. IMPRESSION: No evidence of deep venous thrombosis. Electronically signed by: Irvin Fox M.D. 08/31/2017 3:14 PM Dictated Date/Time: 08/31/2017 3:13 PM
[2017-08-31] MEDS: CLOPIDOGREL BISULFATE 75 MG TAB PO SCH (15:18)
[2017-08-31] MEDS: SULFAMETHOXAZOLE/TRIMETHOPRIM DS 800/160MG TAB PO SCH ×2 (15:18→20:57)
[2017-08-31] MEDS: PEPTAMEN INTENSE VHP 1000ML BAG OG SCH (15:46)
[2017-08-31] MEDS: FENTANYL CITRATE INJ 50 MCG/1 ML 2 ML VIAL IV PRN ×3 (17:23→22:52)
--- NOTE | 2017-08-31 19:01 | Critical Care Progress Note ---
Critical Care Progress Note Date of Service August 31, 2017. ICU Day ICU Day Number: [address] Jaquez Subjective Patient continued with progressive signs and symptoms of ARDs throughout the day. She was seen by the pulmonary team. Dr. Jensen input was appreciated. A transesophageal echocardiogram was completed by Dr. Gonzales and revealed no vegetation on the valves. She continues with sedation using propofol, midazolam, fentanyl drips. Her minute volume has been 13.5-15 L for most of the day. Blood pressures have been stable. To this point she has not been started on pressors as of yet. Initial blood cultures revealed yeast. I spoke with Dr. Wallace from infectious disease and will wait for species and sensitivities. He advises that there is no further utility in sending for speciation to reference lab. Patient's cousin called twice for an update with the code word. Patient's stepfather also stop by to visit. Objective GENERAL : Intermittent acute distress EYES: No icterus, gaze conjugate. NOSE: No evidence of epistaxis MOUTH: No lesions or candidiasis. Endotracheal tube and orogastric tube in place NECK: Supple. LUNGS: Coarse crackles at the bases. No rhonchi. HEART: Regular, tachycardic in the 110s. Normal sinus rhythm on telemetry ABDOMEN: Soft, NT, ND, BS Present EXTREMITIES: No LE edema, pedal pulses intact. Teds/SCDs in place NEURO: Sedated for mechanical ventilation Assessment & Plan FUNGEMIA * 1 out of 2 blood cultures with yeast * Continue caspofungin * Dr. Wallace from infectious disease following * STEVEN completed today negative for vegetation but with hyperdynamic * Chest x-ray will continues with multifocal pneumonia * Pulmonary consulted -patient seen by Dr. Jensen GI * Peptamen bariatric held secondary to vomiting * Orogastric tube removed for STEVEN * On replacement of OG tube it was found to be kinked at the tip. Tube was completely removed and replaced * Repeat KUB shows adequate placement * Keep n.p.o. overnight ID * Discontinue acyclovir and Bactrim per Dr. Wallace * Doubt PCP * HIV fourth-generation testing negative * Continue treated with caspofungin, doxycycline, change linezolid to vancomycin , continue imipenem CCT: 60 minutes in direct patient care. Please refer to Rodney Solares PA-C daily progress note for complete assessment and plan for today. Consults & Procedures Consultants: Dr. Camila Main Data Medications: Current Inpatient Medications Medications (Trade) Dose Ordered Sig/Bonny Route Start Time Stop Time Status Last Admin Dose Admin Acetaminophen (Tylenol Tab) 650 mg Q4H PRN PO 08/29/17 19:00 09/28/17 18:59 08/30/17 06:06 650 MG Al Hydrox/Mg Hydrox/Simethicone (Maalox Max Susp) 15 ml Q4H PRN PO 08/29/17 19:00 09/28/17 18:59 Magnesium Hydroxide (Milk Of Magnesia Susp) 30 ml Q12H PRN PO 08/29/17 19:00 09/28/17 18:59 Ondansetron HCl (Zofran Inj) 4 mg Q6H PRN IV 08/29/17 19:00 09/28/17 18:59 08/31/17 17:23 4 MG Miscellaneous Information (Icu Protocol For Hyperglycemia) 1 ea PRN PRN N/A 08/29/17 19:00 08/31/17 18:59 Insulin Aspart (novoLOG ASPART) [facility] 08/29/17 21:00 09/28/17 20:59 08/30/17 12:05 4 UNITS Miscellaneous Information (Pharmacy Consult) 1 ea UD PRN N/A 08/29/17 20:15 09/28/17 20:14 Insulin Human Regular 250 units/ Sodium Chloride 252.5 ml @ 0 mls/hr Q24H IV 08/29/17 20:30 09/28/17 20:29 08/30/17 19:25 12.1 MLS/HR Glucose (Glucose 40% Gel) 15-30 GRAMS 15 GRAMS... UD PRN PO 08/29/17 21:00 09/28/17 20:59 Glucose (Glucose Chew Tab) 4-8 Tablets 4 Tabl... UD PRN PO 08/29/17 21:00 09/28/17 20:59 Dextrose (Dextrose 50% 50ML Syringe) 25-50ML 25ML FOR ... UD PRN IV 08/29/17 21:00 09/28/17 20:59 Glucagon (Glucagon Inj) 1 mg UD PRN IM 08/29/17 21:00 09/28/17 20:59 Carbohydrates (Carbohydrates For Hypoglycemia) 15-30 GRAMS 15 grams if BSG 54-69... UD PRN PO 08/29/17 21:00 09/28/17 20:59 Albuterol (Ventolin Hfa Inhaler) 2 puffs Q6H PRN INH 08/29/17 21:45 09/28/17 21:44 Clopidogrel Bisulfate (plAVix TAB) 75 mg QAM PO 08/30/17 09:00 09/29/17 08:59 08/31/17 15:18 75 MG Gabapentin (Neurontin Tab) 600 mg TID PO 08/30/17 09:00 09/29/17 08:59 08/31/17 15:44 600 MG Nitroglycerin (Nitrostat Tab) 0.4 mg UD PRN UT 08/29/17 21:45 09/28/17 21:44 Imipenem/ Cilastatin Sodium 500 mg/Dextrose 120 ml @ 100 mls/hr Q6H IV 08/29/17 22:00 09/05/17 21:59 08/31/17 15:46 100 MLS/HR Miscellaneous Information (Consult Glycemic Management Pharmacy) 1 ea UD PRN N/A 08/29/17 21:57 09/28/17 21:56 Ioversol (Optiray 320) 93 ml UD PRN IV 08/30/17 02:45 09/03/17 02:44 Levalbuterol (Xopenex 1.25MG/ 3ML Neb) 1.25 mg Q2H PRN INH 08/30/17 05:30 09/29/17 05:29 08/30/17 05:48 1.25 MG Enoxaparin Sodium (Lovenox Inj) 40 mg Q24H SQ 08/30/17 21:00 09/29/17 20:59 08/30/17 19:33 40 MG Fentanyl Citrate (Fentanyl Inj) 100 mcg Q2H PRN IV 08/30/17 16:30 09/13/17 16:29 08/31/17 17:23 100 MCG Ioversol (Optiray 320) 100 ml UD PRN IV 08/30/17 19:00 09/03/17 18:59 Propofol (Diprivan Iv Emulsion 100ml Vial) 1 dose UD PRN IV 08/30/17 19:15 09/02/17 19:14 08/31/17 16:12 1 DOSE Midazolam HCl 250 ml @ 0 mls/hr Q0M PRN IV 08/30/17 19:06 09/29/17 19:05 08/31/17 15:21 20 MLS/HR Levalbuterol (Xopenex Hfa Inhaler) 4 puffs Q4R INH 08/30/17 20:00 09/29/17 19:59 08/31/17 16:03 4 PUFFS Ipratropium [place] (Atrovent Hfa Inhaler) 4 puffs Q4R INH 08/30/17 20:00 09/29/17 19:59 08/31/17 16:02 4 PUFFS Trimethoprim/ Sulfamethoxazole (Septra Ds 800/ 160MG Tab) 1 tab Q12 PO 08/31/17 09:00 09/07/17 08:59 08/31/17 15:18 1 TAB Caspofungin 50 mg/ Sodium Chloride 260 ml @ 250 mls/hr DAILY IV 09/01/17 09:00 09/08/17 08:59 Pantoprazole Sodium 40 mg/ Syringe 10 ml @ 5 mls/min DAILY@11 IV 08/31/17 11:00 09/30/17 10:59 08/31/17 11:50 5 MLS/MIN Miscellaneous Information (Consult) 1 ea UD PRN N/A 08/31/17 08:30 09/30/17 08:29 Vancomycin HCl 2000 mg/Sodium Chloride 540 ml @ 200 mls/hr Q10H IV 08/31/17 20:00 09/02/17 19:59 Metoprolol Tartrate (Lopressor Iv) 5 mg Q6H PRN IV 08/31/17 08:30 09/30/17 08:29 08/31/17 13:55 5 MG Methylprednisolone Sodium Succinate 40 mg/Syringe 0.64 ml @ 1.5 mls/min Q12H IV 08/31/17 16:00 09/30/17 15:59 08/31/17 15:46 1.5 MLS/MIN Enteral Nutritional Formula (Peptamen Intense VHP) 1,000 ml UD OG 08/31/17 13:00 09/30/17 12:59 08/31/17 15:46 1,000 ML I & O: 24-Hour Column 09/01/17 08:00 Intake Total 2113 ml Output Total 1300 ml Balance 813 ml Vital Signs: Date Time Temp Pulse Resp B/P (MAP) Pulse Ox O2 Delivery O2 Flow Rate FiO2 518 16:27 35 5/5/18 16:03 102 32 96 Mechanical Ventilator 35 5/5/18 16:00 93 Mechanical Ventilator 35 5/5/18 16:00 50 5/5/18 14:00 103 34 111/60 (77) 98 Mechanical Ventilator 45 5/5/18 13:55 117 115/58 5/18 13:45 45 5/5/18 13:00 113 36 113/62 (79) 97 Mechanical Ventilator 45 5// 12:00 37.3 110 37 113/50 (71) 95 Mechanical Ventilator 45 5// 12:00 96 Mechanical Ventilator 45 5/09/13 12:00 50 5//18 11:25 117 44 119/60 (79) 95 Mechanical Ventilator 45 5//18 11:20 117 41 113/55 (74) 94 Mechanical Ventilator 45 5/09/13 11:15 120 42 128/54 (78) 95 Mechanical Ventilator 45 5//18 11:10 122 42 120/54 (76) 98 Mechanical Ventilator 45 5//18 11:05 111 17 210/58 (108) 93 Mechanical Ventilator 45 5/09/13 11:00 101 34 117/56 (76) 96 Mechanical Ventilator 45 5/18 10:43 50 5/5/18 10:00 93 35 113/70 (84) 95 Mechanical Ventilator 50 5/18 09:00 95 34 124/59 (80) 96 Mechanical Ventilator 50 5/18 08:00 36.8 97 33 114/66 (82) 96 Mechanical Ventilator 50 5//18 08:00 50 5/5/18 08:00 96 Mechanical Ventilator 50 5//18 07:41 60 5/5/18 07:00 95 35 119/71 (87) 98 5//18 06:00 99 34 119/65 (83) 99 Mechanical Ventilator 60 5/5/18 05:20 60 5/5/18 05:19 65 5/5/18 04:00 98 Mechanical Ventilator 13.0 65 5/5/18 04:00 65 5/5/18 04:00 36.8 102 39 130/60 (83) 100 Mechanical Ventilator 65 08/31/17 03:17 65 08/31/17 02:01 65 08/31/17 02:00 104 36 119/65 (83) 97 Mechanical Ventilator 65 08/31/17 02:00 75 08/31/17 00:00 75 08/31/17 00:00 36.8 94 34 114/72 (86) 98 Mechanical Ventilator 75 08/30/17 23:59 98 Mechanical Ventilator 13.0 75 08/30/17 23:59 75 08/30/17 23:18 85 08/30/17 22:00 87 31 123/73 (90) 97 Mechanical Ventilator 85 08/30/17 20:00 36.7 101 28 99/57 (71) 99 Mechanical Ventilator 100 08/30/17 20:00 100 08/30/17 20:00 85 08/30/17 20:00 Mechanical Ventilator 100 Laboratory Results: Last 24 Hours Test 08/30/17 19:22 08/30/17 20:52 08/30/17 21:22 08/30/17 22:22 Bedside Glucose 166 mg/dl 142 mg/dl 151 mg/dl 124 mg/dl Test 08/30/17 22:50 08/30/17 23:01 08/30/17 23:18 08/31/17 00:13 Bedside Glucose 121 mg/dl 129 mg/dl 157 mg/dl 152 mg/dl Test 08/31/17 01:03 08/31/17 02:05 08/31/17 03:00 08/31/17 04:14 Bedside Glucose 145 mg/dl 155 mg/dl 112 mg/dl Urine Color YELLOW Urine Appearance CLEAR Urine pH 6.5 Urine Specific Siren 1.038 Urine Protein NEG Urine Glucose (UA) NEG Urine Ketones NEG Urine Occult Blood NEG Urine Nitrite NEG Urine Bilirubin NEG Urine Urobilinogen POS Urine Leukocyte Esterase TRACE Urine WBC (Auto) 1-5 /hpf Urine RBC (Auto) 0-4 /hpf Urine Hyaline Casts (Auto) 1-5 /lpf Urine Epithelial Cells (Auto) >30 /lpf Urine Bacteria (Auto) NEG Test 08/31/17 04:18 08/31/17 05:04 08/31/17 06:04 08/31/17 07:40 White Blood Count 17.41 K/uL Red Blood Count 3.49 M/uL Hemoglobin 10.1 g/dL Hematocrit 30.2 % Mean Corpuscular Volume 86.5 fL Mean Corpuscular Hemoglobin 28.9 pg Mean Corpuscular Hemoglobin Concent 33.4 g/dl Platelet Count 241 K/uL Mean Platelet Volume 10.0 fL Neutrophils (%) (Auto) 87.1 % Lymphocytes (%) (Auto) 7.6 % Monocytes (%) (Auto) 4.7 % Eosinophils (%) (Auto) 0.0 % Basophils (%) (Auto) 0.1 % Neutrophils # (Auto) 15.16 K/uL Lymphocytes # (Auto) 1.33 K/uL Monocytes # (Auto) 0.82 K/uL Eosinophils # (Auto) 0.00 K/uL Basophils # (Auto) 0.01 K/uL RDW Standard Deviation 50.8 fL RDW Coefficient of Variation 15.9 % Immature Granulocyte % (Auto) 0.5 % Immature Granulocyte # (Auto) 0.09 K/uL Sodium Level 136 mmol/L Potassium Level 4.4 mmol/L Chloride Level 110 mmol/L Carbon Dioxide Level 21 mmol/L Anion Gap 5.0 mmol/L Blood Urea Nitrogen 14 mg/dl Creatinine 0.69 mg/dl Est Creatinine Clear Calc Drug Dose 120.2 ml/min Estimated GFR () 127.1 Estimated GFR (Non- 109.7 BUN/Creatinine Ratio 19.7 Random Glucose 102 mg/dl Calcium Level 8.1 mg/dl Phosphorus Level 4.4 mg/dl Magnesium Level 2.1 mg/dl Total Bilirubin 0.5 mg/dl Direct Bilirubin 0.2 mg/dl Aspartate Amino Transf (AST/SGOT) 51 U/L Alanine Aminotransferase (ALT/SGPT) 24 U/L Alkaline Phosphatase 93 U/L Total Protein 5.8 gm/dl Albumin 2.2 gm/dl Procalcitonin 14.51 ng/ml Bedside Glucose 134 mg/dl 166 mg/dl 127 mg/dl Test 08/31/17 08:05 08/31/17 09:13 08/31/17 10:32 08/31/17 11:36 Bedside Glucose 149 mg/dl 167 mg/dl 177 mg/dl 198 mg/dl Test 08/31/17 13:51 08/31/17 14:34 08/31/17 15:59 08/31/17 17:33 Bedside Glucose 206 mg/dl 201 mg/dl 172 mg/dl 141 mg/dl
[2017-08-31] MEDS: VANCOMYCIN IV 2,000 MG in SODIUM CHLORIDE 0.9% 500ML 500 ML IV SCH (20:55)
[2017-08-31] MEDS: INSULIN REGULAR 250 UNITS in SODIUM CHLORIDE 0.9% 250ML 250 ML IV SCH (20:56)
[2017-08-31] MEDS: ENOXAPARIN 40 MG/0.4 ML SYR SQ SCH (20:58)
[2017-09-01] VITALS (25 sets, daily range): BP systolic 124–176; BP diastolic 70–106; PULSE 64–93; TEMP 36.8–37.7; O2SAT 95–99
[2017-09-01] MEDS: FENTANYL CITRATE INJ 50 MCG/1 ML 2 ML VIAL IV PRN ×7 (01:02→22:14)
[2017-09-01] MEDS: MIDAZOLAM 125MG/250ML D5W 250 ML IV PRN (02:25)
[2017-09-01] MEDS: PROPOFOL IV EMULSION 10 MG/ML 100 ML VIAL IV PRN ×7 (02:25→23:47)
[2017-09-01] MEDS: IPRATROPIUM BROMIDE HFA INHALER INH SCH ×5 (03:24→20:05)
[2017-09-01] MEDS: LEValbuterol HFA 15GM INHALER INH SCH ×5 (03:24→20:05)
[2017-09-01] MEDS: IMIPENEM-CILASTATIN 500 MG in DEXTROSE 5% 100ML 100 ML IV SCH ×4 (03:32→21:44)
[2017-09-01] MEDS: METHYLPREDNISOLONE IV 40 MG in SYRINGE 0 ML IV SCH ×2 (03:33→14:47)
[2017-09-01 04:18] LABS: BASO % 0.1 %; BASO ABS # 0.01 K/uL (0-0.2); EOS % 0.2 %; EOS ABS # 0.02 K/uL (0-0.5); HEMOGLOBIN 9.3 g/dL (12.0-16.0); IG# 0.13 K/uL (0.00-0.02); LYMPH % 13.8 %; LYMPH ABS # 1.77 K/uL (1.2-3.4); MEAN CELL VOLUME 86.7 fL (80-100); MEAN CORPUSCULAR HEMOGLOBIN 28.8 pg (25-34); MEAN CORPUSCULAR HGB CONC 33.2 g/dl (32-36); MEAN PLATELET VOLUME 10.1 fL (7.4-10.4); MONO % 5.9 %; MONO ABS # 0.75 K/uL (0.11-0.59); NEUT ABS # 10.13 K/uL (1.4-6.5); PLATELET COUNT 212 K/uL (130-400); RED CELL DISTRIBUTION WIDTH CV 15.9 % (11.5-14.5); RED CELL DISTRIBUTION WIDTH SD 51.3 fL (36.4-46.3); WHITE BLOOD COUNT 12.81 K/uL (4.8-10.8)
[2017-09-01 04:49] LABS: ALBUMIN 2.3 gm/dl (3.4-5.0); CREATININE 0.62 mg/dl (0.60-1.20); POTASSIUM 4.4 mmol/L (3.5-5.1)
[2017-09-01 04:52] LABS: PHOSPHORUS 4.2 mg/dl (2.5-4.9); TOTAL PROTEIN 5.9 gm/dl (6.4-8.2)
[2017-09-01] MEDS: VANCOMYCIN IV 2,000 MG in SODIUM CHLORIDE 0.9% 500ML 500 ML IV SCH (05:31)
[2017-09-01] MEDS: INSULIN ASPART 100 UNITS/ML 3 ML PEN SC SCH ×9 (07:14→23:51)
--- NOTE | 2017-09-01 08:17 | DIAGNOSTIC IMAGING REPORT ---
ADDENDUM Left-sided catheter is an arterial line, not a PICC. After confirming with the ICU team, the structure about the left neck is reported to be external to the patient. Electronically signed by: Isidro Eli M.D. 09/01/2017 8:33 AM Dictated Date/Time: 09/01/2017 8:32 AM ORIGINAL REPORT CHEST ONE VIEW PORTABLE HISTORY: 37 years-old Female intubation ARDS acute respiratory failure COMPARISON: Chest radiograph 08/31/2017 TECHNIQUE: Portable AP view of the chest FINDINGS: Cardiac silhouette is within normal limits. Endotracheal tube overlies the midline, 3.7 cm superior to the misti. Enteric tube courses below the diaphragm into the region of the gastric lumen outside the [id number]. Left-sided PICC is in place with distal tip appearing to overlie lateral aspect of the left third rib. Additionally, there is a catheter about the left neck appears to be discontinuous with the left-sided PICC. Small left pleural effusion with unchanged bilateral mixed interstitial and alveolar opacities. Bones of the chest appear grossly intact. IMPRESSION: 1. Left-sided PICC with distal tip overlying the lateral aspect of the left third rib. Apparent additional catheter about the left neck, possibly within the jugular vein or external to the patient. 2. Satisfactory positioning of endotracheal and enteric tubes. 3. Unchanged bilateral mixed interstitial and alveolar opacities with small left pleural effusion. The above report was generated using voice recognition software. It may contain grammatical, syntax or spelling errors. Electronically signed by: Isidro Eli M.D. 09/01/2017 8:16 AM Dictated Date/Time: 09/01/2017 8:11 AM
[2017-09-01] MEDS ORDERED: INSULIN GLARGINE SOLOSTAR 100 UNITS/ML 3 ML PEN SC ONE (08:30)
[2017-09-01] MEDS ORDERED: CASPOFUNGIN INJ 50 MG in SODIUM CHLORIDE 0.9% 250ML 250 ML IV SCH (09:00)
[2017-09-01] MEDS: GABAPENTIN 600 MG TAB PO SCH ×3 (09:17→20:40)
[2017-09-01] MEDS: SULFAMETHOXAZOLE/TRIMETHOPRIM DS 800/160MG TAB PO SCH ×2 (09:17→20:40)
[2017-09-01] MEDS: CLOPIDOGREL BISULFATE 75 MG TAB PO SCH (09:17)
--- NOTE | 2017-09-01 10:01 | Ophthalmology Consultation ---
Ophthalmology Consultation Date of Service: September 01, 2017. Requested By: [facility] ICU History of Present Illness: 37 y/o female admitted for infection of unknown source, respiratory failure requiring intubation. Blood cxs CC: r/o fungal endophthalmitis Vision: unknown, pt is nonverbal intubated Location (of CC): OU Quality/Severity: no vision complaints on presentation to ED Duration: unknown Timing: unknown Context: admitted to ICU Associated Signs/Symptoms: febrile, blood cx with 1 of 2 yeast Modifying Factors: none No other eye complaints. Mood and Affect: nonverbal intubated Past Ocular History: Right Eye: 1. unknown Left Eye: 1. unknown Medications: see EMR Relevant Past Medical History: IVDA, DM, CAD, smoker [place] OD: unable to measure but responds to light stimulus OS: unable to measure but responds to light stimulus IOP: 21 OU tonopen VF: unable to test Motility: unable to test but moves eyes with no apparent deficit External: The ocular adnexae are unremarkable. SLE: Lids/Lashes: wnl OU Conjunctiva/Sclera: quiet OU Cornea: clear OU Anterior Chamber: deep and quiet OU Iris: normal OU; no NVI OU Lens: clear OU Dilated fundus exam OD: vitreous: clear optic nerve: 0.1, no edema/pallor/NVD macula: familial drusen vessels: wnl midperiphery: nasal drusen periphery: no RT/RD Dilated fundus exam OS: vitreous: clear optic nerve: 0.1, no edema/pallor/NVD macula: familial drusen vessels: wnl midperiphery: nasal drusen periphery: no RT/RD Assessment and Plan: 1. Fungemia -no evidence of fungal endophthalmitis OU 2. 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
[2017-09-01] MEDS: PANTOprazole INJ 40 MG in SYRINGE 0 ML IV SCH (10:21)
[2017-09-01] MEDS ORDERED: MIDAZOLAM IV PRN (11:15)
[2017-09-01] MEDS ORDERED: D5W IV PRN (11:15)
[2017-09-01] MEDS: ALBUMIN HUMAN 25% 12.5 GM/50 ML VIAL IV SCH ×2 (13:22→19:20)
--- NOTE | 2017-09-01 13:23 | Pharmacy Progress Note ---
Pharmacy Glycemic Short Note 2 Date of Service September 01, 2017. OUTPATIENT ANTIDIABETIC REGIMEN: * Metformin 1000mg PO BID Test 08/31/17 13:51 08/31/17 14:34 08/31/17 15:59 08/31/17 17:33 Bedside Glucose 206 mg/dl (70-90) 201 mg/dl (70-90) 172 mg/dl (70-90) 141 mg/dl (70-90) Test 08/31/17 19:32 08/31/17 21:32 08/31/17 23:20 09/01/17 01:36 Bedside Glucose 160 mg/dl (70-90) 193 mg/dl (70-90) 160 mg/dl (70-90) 128 mg/dl (70-90) Test 09/01/17 03:28 09/01/17 04:10 09/01/17 04:49 09/01/17 05:29 Bedside Glucose 112 mg/dl (70-90) 128 mg/dl (70-90) 118 mg/dl (70-90) Random Glucose 112 mg/dl (70-99) Test 09/01/17 06:23 09/01/17 07:44 09/01/17 09:22 09/01/17 10:54 Bedside Glucose 128 mg/dl (70-90) 136 mg/dl (70-90) 142 mg/dl (70-90) 144 mg/dl (70-90) ASSESSMENT: 09/01/17 * Pt remains on multiple antibiotics, IV steroids, mechanical ventilation * Possible bronch today, TFs on hold * In anticipation of third spacing, pt placed on albumin and all IVs placed on minimum volume * BSGs at goal on insulin drip, insulin drip at steady rate of 2.7units/hr - will transition pt to basal bolus today 08/31/17 * 37 year old female with acute hypoxic respiratory failure, tachycardia, fever/ sepsis, possibly secondary to pneumonia and/or right wrist abscess * On multiple antibiotics, Doxycycline and Zyvox just changed to IV Vancomycin today * On IV Solu-medrol 40mg IV Q8H * Tube feeds were at 20cc/hr prior to being held for STEVEN today, goal 50cc/hr * Patient has been maintained on IV insulin drip since 08/29 d/t all of the above compounding factors; current rate down to 3.5units/hr * Will eventually begin basal insulin in anticipation for drip to be discontinued PLAN FOR INPATIENT GLYCEMIC CONTROL: * Hold outpatient oral diabetes medications * IV Insulin infusion * Goal range 120mg-200mg/dl * Discontinue at 1430 today (overlap with Lantus x6 hours) * Basal insulin * Lantus 70 units SQ x 1 dose today at 0830 then * Based on BSG: Lantus SQ BID * BSG < 100mg/dl - 0 units * BSG 100-180mg/dl - 35 units * BSG > 180mg/dl - 40 units * Bolus insulin * NovoLog Q4H to cover carbohydrates in Peptamen Bariatric - held when TFs held * NovoLog Q4H * CF: 15 mg/dl/unit * Nutritional / Prandial insulin per carb ratio of 1 unit per 3 grams CHO consumed PLAN FOR DISCHARGE: * A1c = 9.7% - recommend adding basal insulin to outpatient regimen
--- NOTE | 2017-09-01 14:07 | Pulmonology Progress Note ---
Pulmonary Progress Note Date of Service September 01, 2017. Attending Dr. 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 ETT by chest x-ray also notably within proper position. Mechanical ventilation continue current settings. Patient continues at 7 cc/KG for lung volume production. #2 Hypercapnia/Hypoxemia: Patient's hypoxemia has notably improved currently on 35% FiO2 and PEEP of 10. She does continue to have a notable hypercapnic respiratory insufficiency most likely being driven by underlying infection/ septic state. Patient is responding well to current interventions with steroids , antibiotics and antifungals. Once again the exact etiology of the patient's current respiratory distress is unknown. Will continue current methylprednisolone at 80 mg/daily total (40 mg/twice daily). Data Medications: Current Inpatient Medications Medications (Trade) Dose Ordered Sig/Bonny Route Start Time Stop Time Status Last Admin Dose Admin Acetaminophen (Tylenol Tab) 650 mg Q4H PRN PO 08/29/17 19:00 09/28/17 18:59 08/30/17 06:06 650 MG Al Hydrox/Mg Hydrox/Simethicone (Maalox Max Susp) 15 ml Q4H PRN PO 08/29/17 19:00 09/28/17 18:59 Magnesium Hydroxide (Milk Of Magnesia Susp) 30 ml Q12H PRN PO 08/29/17 19:00 09/28/17 18:59 Ondansetron HCl (Zofran Inj) 4 mg Q6H PRN IV 08/29/17 19:00 09/28/17 18:59 08/31/17 17:23 4 MG Miscellaneous Information (Pharmacy Consult) 1 ea UD PRN N/A 08/29/17 20:15 09/28/17 20:14 Insulin Human Regular 250 units/ Sodium Chloride 252.5 ml @ 0 mls/hr Q24H IV 08/29/17 20:30 09/01/17 14:30 08/31/17 20:56 4.2 MLS/HR Glucose (Glucose 40% Gel) 15-30 GRAMS 15 GRAMS... UD PRN PO 08/29/17 21:00 09/28/17 20:59 Glucose (Glucose Chew Tab) 4-8 Tablets 4 Tabl... UD PRN PO 08/29/17 21:00 09/28/17 20:59 Dextrose (Dextrose 50% 50ML Syringe) 25-50ML 25ML FOR ... UD PRN IV 08/29/17 21:00 09/28/17 20:59 Glucagon (Glucagon Inj) 1 mg UD PRN IM 08/29/17 21:00 09/28/17 20:59 Carbohydrates (Carbohydrates For Hypoglycemia) 15-30 GRAMS 15 grams if BSG 54-69... UD PRN PO 08/29/17 21:00 09/28/17 20:59 Albuterol (Ventolin Hfa Inhaler) 2 puffs Q6H PRN INH 08/29/17 21:45 09/28/17 21:44 Clopidogrel Bisulfate (plAVix TAB) 75 mg QAM PO 08/30/17 09:00 09/29/17 08:59 09/01/17 09:17 75 MG Gabapentin (Neurontin Tab) 600 mg TID PO 08/30/17 09:00 09/29/17 08:59 09/01/17 09:17 600 MG Nitroglycerin (Nitrostat Tab) 0.4 mg UD PRN UT 08/29/17 21:45 09/28/17 21:44 Imipenem/ Cilastatin Sodium 500 mg/Dextrose 120 ml @ 100 mls/hr Q6H IV 08/29/17 22:00 09/05/17 21:59 09/01/17 09:17 100 MLS/HR Miscellaneous Information (Consult Glycemic Management Pharmacy) 1 ea UD PRN N/A 08/29/17 21:57 09/28/17 21:56 Ioversol (Optiray 320) 93 ml UD PRN IV 08/30/17 02:45 09/03/17 02:44 Levalbuterol (Xopenex 1.25MG/ 3ML Neb) 1.25 mg Q2H PRN INH 08/30/17 05:30 09/29/17 05:29 08/30/17 05:48 1.25 MG Enoxaparin Sodium (Lovenox Inj) 40 mg Q24H SQ 08/30/17 21:00 09/29/17 20:59 08/31/17 20:58 40 MG Fentanyl Citrate (Fentanyl Inj) 100 mcg Q2H PRN IV 08/30/17 16:30 09/13/17 16:29 09/01/17 13:21 100 MCG Ioversol (Optiray 320) 100 ml UD PRN IV 08/30/17 19:00 09/03/17 18:59 Propofol (Diprivan Iv Emulsion 100ml Vial) 1 dose UD PRN IV 08/30/17 19:15 09/02/17 19:14 09/01/17 13:40 1 DOSE Levalbuterol (Xopenex Hfa Inhaler) 4 puffs Q4R INH 08/30/17 20:00 09/29/17 19:59 09/01/17 11:11 4 PUFFS Ipratropium [place] (Atrovent Hfa Inhaler) 4 puffs Q4R INH 08/30/17 20:00 09/29/17 19:59 09/01/17 11:10 4 PUFFS Trimethoprim/ Sulfamethoxazole (Septra Ds 800/ 160MG Tab) 1 tab Q12 PO 08/31/17 09:00 09/07/17 08:59 09/01/17 09:17 1 TAB Pantoprazole Sodium 40 mg/ Syringe 10 ml @ 5 mls/min DAILY@11 IV 08/31/17 11:00 09/30/17 10:59 09/01/17 10:21 5 MLS/MIN Miscellaneous Information (Consult) 1 ea UD PRN N/A 08/31/17 08:30 09/02/17 23:59 Metoprolol Tartrate (Lopressor Iv) 5 mg Q6H PRN IV 08/31/17 08:30 09/30/17 08:29 08/31/17 13:55 5 MG Methylprednisolone Sodium Succinate 40 mg/Syringe 0.64 ml @ 1.5 mls/min Q12H IV 08/31/17 16:00 09/30/17 15:59 09/01/17 03:33 1.5 MLS/MIN Enteral Nutritional Formula (Peptamen Intense VHP) 1,000 ml UD OG 08/31/17 13:00 09/30/17 12:59 08/31/17 15:46 1,000 ML Insulin Aspart (novoLOG ASPART) SLIDING SCALE Q4 SC 09/01/17 12:00 10/01/17 11:59 Insulin Aspart (novoLOG ASPART) SLIDING SCALE Q4 SC 09/01/17 12:00 10/01/17 11:59 Albumin Human (Albumin 25%) 50 gm Q8H IV 09/01/17 11:00 09/04/17 10:59 09/01/17 13:22 50 GM Caspofungin 50 mg/ Sodium Chloride 110 ml @ 250 mls/hr DAILY IV 09/02/17 09:00 09/08/17 08:59 Vancomycin HCl 2000 mg/Sodium Chloride 290 ml @ 200 mls/hr Q10H IV 09/01/17 16:00 09/02/17 23:59 Midazolam HCl 250 ml @ 0 mls/hr Q0M PRN IV 09/01/17 11:15 10/01/17 11:14 Insulin Glargine (Lantus Solostar Pen) SEE PROTOCOL BID SC 09/01/17 21:00 10/01/17 20:59 I & O: 24-Hour Column 09/02/17 07:59 Intake Total 1852 ml Output Total 950 ml Balance 902 ml Vital Signs: Date Time Temp Pulse Resp B/P (MAP) Pulse Ox O2 Delivery O2 Flow Rate FiO2 09/01/17 12:00 35 09/01/17 12:00 95 Mechanical Ventilator 35 09/01/17 11:12 30 09/01/17 10:25 30 09/01/17 10:00 93 41 155/99 (117) 95 Mechanical Ventilator 30 09/01/17 09:00 83 30 135/85 (102) 95 Mechanical Ventilator 30 09/01/17 08:00 37.2 91 30 150/96 (114) 95 Mechanical Ventilator 30 5/6/18 08:00 95 Mechanical Ventilator 35 5/6/18 08:00 35 5/6/18 07:37 35 5/6/18 07:00 90 31 147/90 (109) 97 Mechanical Ventilator 30 5/6/18 07:00 90 37 147/90 (100) 96 150/83 5/6/18 06:01 35 5/6/18 06:00 81 29 129/81 (92) 95 140/77 5/6/18 05:00 86 32 141/95 (110) 97 157/87 5/6/18 04:00 87 29 130/82 (94) 98 141/82 5/6/18 04:00 97 Mechanical Ventilator 35 5/6/18 04:00 36.9 5/6/18 04:00 35 5/6/18 03:24 35 5/6/18 03:00 88 29 134/79 (95) 97 141/79 5/6/18 02:42 35 5/6/18 02:00 93 30 124/79 (99) 97 138/78 (104) 5/6/18 01:00 92 36 130/83 (100) 97 143/82 5/6/18 00:01 37.2 5/6/18 00:00 90 29 134/81 (106) 97 5//18 23:59 35 5/5/18 23:59 94 Mechanical Ventilator 35 5/5/18 23:35 30 5/5/18 23:00 96 30 125/70 (96) 94 5/5/18 22:00 37.5 101 35 129/76 (101) 94 5/5/18 21:00 104 35 123/68 (93) 92 5/5/18 20:21 30 5/5/18 20:00 94 Mechanical Ventilator 30 5/5/18 20:00 37.5 5/5/18 20:00 30 5/5/18 20:00 105 37 130/67 (93) 94 5/5/18 19:00 101 32 122/68 (86) 94 Mechanical Ventilator 30 5/5/18 18:00 101 31 122/68 (86) 93 Mechanical Ventilator 30 5/5/18 17:16 100 36 113/62 (79) 93 Mechanical Ventilator 30 5/5/18 17:00 105 37 118/59 (78) 94 Mechanical Ventilator 30 08/31/17 16:27 35 08/31/17 16:03 102 32 96 Mechanical Ventilator 35 08/31/17 16:00 37.2 103 33 109/57 (74) 95 Mechanical Ventilator 35 08/31/17 16:00 93 Mechanical Ventilator 35 08/31/17 16:00 50 08/31/17 15:00 103 35 116/61 (79) 98 Mechanical Ventilator 40 Laboratory Results: Last 24 Hours Test 08/31/17 14:34 08/31/17 15:59 08/31/17 17:33 08/31/17 19:32 Bedside Glucose 201 mg/dl 172 mg/dl 141 mg/dl 160 mg/dl Test 08/31/17 21:32 08/31/17 23:20 09/01/17 01:36 09/01/17 03:28 Bedside Glucose 193 mg/dl 160 mg/dl 128 mg/dl 112 mg/dl Test 09/01/17 04:10 09/01/17 04:49 09/01/17 05:29 09/01/17 06:23 White Blood Count 12.81 K/uL Red Blood Count 3.23 M/uL Hemoglobin 9.3 g/dL Hematocrit 28.0 % Mean Corpuscular Volume 86.7 fL Mean Corpuscular Hemoglobin 28.8 pg Mean Corpuscular Hemoglobin Concent 33.2 g/dl Platelet Count 212 K/uL Mean Platelet Volume 10.1 fL Neutrophils (%) (Auto) 79.0 % Lymphocytes (%) (Auto) 13.8 % Monocytes (%) (Auto) 5.9 % Eosinophils (%) (Auto) 0.2 % Basophils (%) (Auto) 0.1 % Neutrophils # (Auto) 10.13 K/uL Lymphocytes # (Auto) 1.77 K/uL Monocytes # (Auto) 0.75 K/uL Eosinophils # (Auto) 0.02 K/uL Basophils # (Auto) 0.01 K/uL RDW Standard Deviation 51.3 fL RDW Coefficient of Variation 15.9 % Immature Granulocyte % (Auto) 1.0 % Immature Granulocyte # (Auto) 0.13 K/uL Sodium Level 135 mmol/L Potassium Level 4.4 mmol/L Chloride Level 109 mmol/L Carbon Dioxide Level 21 mmol/L Anion Gap 5.0 mmol/L Blood Urea Nitrogen 12 mg/dl Creatinine 0.62 mg/dl Est Creatinine Clear Calc Drug Dose 137.2 ml/min Estimated GFR () 131.6 Estimated GFR (Non- 113.6 BUN/Creatinine Ratio 19.2 Random Glucose 112 mg/dl Calcium Level 8.0 mg/dl Phosphorus Level 4.2 mg/dl Magnesium Level 2.0 mg/dl Total Bilirubin 0.4 mg/dl Aspartate Amino Transf (AST/SGOT) 35 U/L Alanine Aminotransferase (ALT/SGPT) 21 U/L Alkaline Phosphatase 104 U/L Total Protein 5.9 gm/dl Albumin 2.3 gm/dl Globulin 3.6 gm/dl Albumin/Globulin Ratio 0.6 Procalcitonin 6.91 ng/ml Bedside Glucose 128 mg/dl 118 mg/dl 128 mg/dl Test 09/01/17 07:44 09/01/17 09:22 09/01/17 10:54 09/01/17 13:18 Bedside Glucose 136 mg/dl 142 mg/dl 144 mg/dl 114 mg/dl
[2017-09-01] MEDS: VANCOMYCIN IV 2,000 MG in SODIUM CHLORIDE 0.9% 250ML 250 ML IV SCH (15:37)
[2017-09-01] MEDS: PEPTAMEN INTENSE VHP 1000ML BAG OG SCH (15:37)
--- NOTE | 2017-09-01 16:44 | Critical Care Progress Note ---
Critical Care Progress Note Date of Service September 01, 2017. ICU Day ICU Day Number: [address] Jaquez Subjective Patient seen and examined at bedside. Unable to obtain review of systems secondary to patient condition. Patient is intubated and currently sedated with midazolam drip and propofol with intermittent fentanyl pushes. She continues to have elevated oxygen requirements with minute volume of 15 L but appears more comfortable on the vent today. She continues on assist-control PRVC and is oxygenating adequately. Blood pressure has improved without pressors. She has no apparent discomfort. She continues to carry a high procalcitonin level. Objective GENERAL : Intermittent acute distress but less than yesterday EYES: No icterus, gaze conjugate. PERRL NOSE: No evidence of epistaxis MOUTH: No lesions or candidiasis. Endotracheal tube and orogastric tube in place NECK: Supple. No stridor or appreciation of air leak LUNGS: Coarse crackles at the bases. No rhonchi. HEART: Regular. Normal sinus rhythm on telemetry with a rate in the 80s ABDOMEN: Soft, NT, ND, BS Present EXTREMITIES: No LE edema, pedal pulses intact. Teds/SCDs in place NEURO: Sedated for mechanical ventilation Assessment & Plan FUNGEMIA * 1/2 blood cultures with yeast; 2/2 with no growth * Continue caspofungin * Dr. Wallace from infectious disease following * STEVEN negative for vegetation but with hyperdynamic wall motion * Chest x-ray with persistent multifocal pneumonia * Pulmonary consulted -patient seen by Dr. Jensen NEURO * Currently sedated on propofol and midazolam PULMONARY * Intubated for concern of developing ARDs * P: F ratio 310 today * Pulmonary on board -appreciate Dr. Jensen's input * No ventilator changes today -continue with assist control * Oxygenating better today * Continue with antibiotic treatment * Chronic tobacco abuser with unfiltered cigarettes that she rolls at home * Question about other inhalation products * Could be autoimmune process * CHRISTIAN, RF, anti-GBM ordered and pending CARDIOVASCULAR * Hemodynamically improved today with blood pressures in the 130s systolically * Tachycardia most likely driven by sepsis but will begin beta-blockade at low doses for known history of CAD * STEVEN yesterday negative for vegetation * Patient with history of CAD * Continue Plavix * Patient on Toprol XL at home -begin metoprolol tartrate 2.5 mg IV every 6 hours while vented * QTC of 440 ms 09/01/2017 * No arrhythmias on monitor FLUID STATUS * Cumulative intake is currently +3318. * Concern with fluid overload * RV and IVC collapsible with ultrasound yesterday which raises a concern for third spacing * Fluid conservation discussed with pharmacy * Concentrate Versed drip * Discontinue insulin drip * Concentrate caspofungin * Concentrated vancomycin today * Concentrate Primaxin * This will account for nearly 1200 cc of fluid * Reevaluate tomorrow * Started albumin 50 g 3 times daily first dose at 1 PM today * May benefit from a single dose of furosemide * Continue daily ultra sound monitoring GI * Peptamen bariatric held yesterday secondary to vomiting -restart at 10 mL/h with an end goal of 20 mL/h * Orogastric tube in good position on x-ray * Continue prophylaxis with pantoprazole * Elevated LFTs -preliminary hepatitis C panel positive -await final results to rule out false positive results ID * Discontinued acyclovir and Bactrim per Dr. Wallace * Doubt PCP * HIV fourth-generation testing negative * Continue treating with caspofungin, doxycycline, imipenem. Changed linezolid to vancomycin yesterday empirically. If no growth on culture by tomorrow, discontinue * Bronchoscopy washings negative for bacteria. Acid-fast bacilli smear is negative -mycobacteria cultures are still pending. Imaging with multilobar pneumonia * Lactic acidosis resolved * Continue broad-spectrum antibiotics per infectious disease but consider viral etiology with her initial cultures ENDOCRINOLOGY * Diabetes mellitus * Insulin drip discontinued today * Hemoglobin A1c 9.7 * Glycemic consult placed * Continue Lantus as well as NovoLog sliding scale insulin * Steroids decreased by pulmonary to 40 mg IV Solu-Medrol every 12 hours RENAL * Admitted with a creatinine of 1.39 * AKA resolved; creatinine 0.62 today * Strict I's and O HEME * Heme 9.3 (admitting hemoglobin was 12.3) * Absolute reticulocyte count 0.08; reticulocyte percentage 2.0 * No active bleeding and has not required transfusion this admission * Previous history of blood transfusion * Follow serial labs DVT PROPHYLAXIS * Enoxaparin 40 mg subcu daily * SCDs CCT: 65 minutes including chart review and discussion with specialists Thank you for including us in the care of this patient. We will continue to follow along. Please refer to Dr. Jaquez's addendum for further recommendations. I have personally reviewed the documentation. I agree with assessment and plan of Margaret Roberto PA-C. Consults & Procedures Consultants: Dr. Jensen -pulmonary Dr. Main -infectious disease Dr. Gonzales -cardiology Dr. Enriquez -ophthalmology Procedures: Endotracheal intubation 08/30/2017 Axillary arterial line 08/30/2017 Fiberoptic bronchoscopy 08/30/2017 Transesophageal echocardiogram 08/31/2017 Data Medications: Current Inpatient Medications Medications (Trade) Dose Ordered Sig/Bonny Route Start Time Stop Time Status Last Admin Dose Admin Acetaminophen (Tylenol Tab) 650 mg Q4H PRN PO 08/29/17 19:00 09/28/17 18:59 08/30/17 06:06 650 MG Al Hydrox/Mg Hydrox/Simethicone (Maalox Max Susp) 15 ml Q4H PRN PO 08/29/17 19:00 09/28/17 18:59 Magnesium Hydroxide (Milk Of Magnesia Susp) 30 ml Q12H PRN PO 08/29/17 19:00 09/28/17 18:59 Ondansetron HCl (Zofran Inj) 4 mg Q6H PRN IV 08/29/17 19:00 09/28/17 18:59 08/31/17 17:23 4 MG Miscellaneous Information (Pharmacy Consult) 1 ea UD PRN N/A 08/29/17 20:15 09/28/17 20:14 Glucose (Glucose 40% Gel) 15-30 GRAMS 15 GRAMS... UD PRN PO 08/29/17 21:00 09/28/17 20:59 Glucose (Glucose Chew Tab) 4-8 Tablets 4 Tabl... UD PRN PO 08/29/17 21:00 09/28/17 20:59 Dextrose (Dextrose 50% 50ML Syringe) 25-50ML 25ML FOR ... UD PRN IV 08/29/17 21:00 09/28/17 20:59 Glucagon (Glucagon Inj) 1 mg UD PRN IM 08/29/17 21:00 09/28/17 20:59 Carbohydrates (Carbohydrates For Hypoglycemia) 15-30 GRAMS 15 grams if BSG 54-69... UD PRN PO 08/29/17 21:00 09/28/17 20:59 Albuterol (Ventolin Hfa Inhaler) 2 puffs Q6H PRN INH 08/29/17 21:45 09/28/17 21:44 Clopidogrel Bisulfate (plAVix TAB) 75 mg QAM PO 08/30/17 09:00 09/29/17 08:59 09/01/17 09:17 75 MG Gabapentin (Neurontin Tab) 600 mg TID PO 08/30/17 09:00 09/29/17 08:59 09/01/17 09:17 600 MG Nitroglycerin (Nitrostat Tab) 0.4 mg UD PRN UT 08/29/17 21:45 09/28/17 21:44 Imipenem/ Cilastatin Sodium 500 mg/Dextrose 120 ml @ 100 mls/hr Q6H IV 08/29/17 22:00 09/05/17 21:59 09/01/17 15:37 100 MLS/HR Miscellaneous Information (Consult Glycemic Management Pharmacy) 1 ea UD PRN N/A 08/29/17 21:57 09/28/17 21:56 Ioversol (Optiray 320) 93 ml UD PRN IV 08/30/17 02:45 09/03/17 02:44 Levalbuterol (Xopenex 1.25MG/ 3ML Neb) 1.25 mg Q2H PRN INH 08/30/17 05:30 09/29/17 05:29 08/30/17 05:48 1.25 MG Enoxaparin Sodium (Lovenox Inj) 40 mg Q24H SQ 08/30/17 21:00 09/29/17 20:59 08/31/17 20:58 40 MG Fentanyl Citrate (Fentanyl Inj) 100 mcg Q2H PRN IV 08/30/17 16:30 09/13/17 16:29 09/01/17 13:21 100 MCG Ioversol (Optiray 320) 100 ml UD PRN IV 08/30/17 19:00 09/03/17 18:59 Propofol (Diprivan Iv Emulsion 100ml Vial) 1 dose UD PRN IV 08/30/17 19:15 09/02/17 19:14 09/01/17 13:40 1 DOSE Levalbuterol (Xopenex Hfa Inhaler) 4 puffs Q4R INH 08/30/17 20:00 09/29/17 19:59 09/01/17 15:16 4 PUFFS Ipratropium [place] (Atrovent Hfa Inhaler) 4 puffs Q4R INH 08/30/17 20:00 09/29/17 19:59 09/01/17 15:16 4 PUFFS Trimethoprim/ Sulfamethoxazole (Septra Ds 800/ 160MG Tab) 1 tab Q12 PO 08/31/17 09:00 09/07/17 08:59 09/01/17 09:17 1 TAB Pantoprazole Sodium 40 mg/ Syringe 10 ml @ 5 mls/min DAILY@11 IV 08/31/17 11:00 09/30/17 10:59 09/01/17 10:21 5 MLS/MIN Miscellaneous Information (Consult) 1 ea UD PRN N/A 08/31/17 08:30 09/02/17 23:59 Metoprolol Tartrate (Lopressor Iv) 5 mg Q6H PRN IV 08/31/17 08:30 09/30/17 08:29 08/31/17 13:55 5 MG Methylprednisolone Sodium Succinate 40 mg/Syringe 0.64 ml @ 1.5 mls/min Q12H IV 08/31/17 16:00 09/30/17 15:59 09/01/17 14:47 1.5 MLS/MIN Enteral Nutritional Formula (Peptamen Intense VHP) 1,000 ml UD OG 08/31/17 13:00 09/30/17 12:59 09/01/17 15:37 1,000 ML Insulin Aspart (novoLOG ASPART) SLIDING SCALE Q4 SC 09/01/17 12:00 10/01/17 11:59 Insulin Aspart (novoLOG ASPART) SLIDING SCALE Q4 SC 09/01/17 12:00 10/01/17 11:59 Albumin Human (Albumin 25%) 50 gm Q8H IV 09/01/17 11:00 09/04/17 10:59 09/01/17 13:22 50 GM Caspofungin 50 mg/ Sodium Chloride 110 ml @ 250 mls/hr DAILY IV 09/02/17 09:00 09/08/17 08:59 Vancomycin HCl 2000 mg/Sodium Chloride 290 ml @ 200 mls/hr Q10H IV 09/01/17 16:00 09/02/17 23:59 09/01/17 15:37 200 MLS/HR Midazolam HCl 250 ml @ 0 mls/hr Q0M PRN IV 09/01/17 11:15 10/01/17 11:14 Insulin Glargine (Lantus Solostar Pen) SEE PROTOCOL BID SC 09/01/17 21:00 10/01/17 20:59 I & O: 24-Hour Column 09/02/17 08:00 Intake Total 1852 ml Output Total 950 ml Balance 902 ml Vital Signs: Date Time Temp Pulse Resp B/P (MAP) Pulse Ox O2 Delivery O2 Flow Rate FiO2 09/01/17 15:19 30 09/01/17 15:00 82 30 142/90 (107) 95 Mechanical Ventilator 30 09/01/17 14:22 30 09/01/17 14:00 79 29 135/85 (102) 95 Mechanical Ventilator 30 09/01/17 13:00 86 31 155/96 (115) 96 Mechanical Ventilator 30 09/01/17 12:00 37.4 89 38 152/96 (114) 96 Mechanical Ventilator 30 09/01/17 12:00 35 09/01/17 12:00 Mechanical Ventilator 09/01/17 11:12 30 09/01/17 10:25 30 09/01/17 10:00 93 41 155/99 (117) 95 Mechanical Ventilator 30 09/01/17 09:00 83 30 135/85 (102) 95 Mechanical Ventilator 30 09/01/17 08:00 37.2 91 30 150/96 (114) 95 Mechanical Ventilator 30 09/01/17 08:00 95 Mechanical Ventilator 35 09/01/17 08:00 35 09/01/17 07:37 35 09/01/17 07:00 90 31 147/90 (109) 97 Mechanical Ventilator 30 09/01/17 07:00 90 37 147/90 (100) 96 150/83 09/01/17 06:01 35 09/01/17 06:00 81 29 129/81 (92) 95 140/77 09/01/17 05:00 86 32 141/95 (110) 97 157/87 09/01/17 04:00 87 29 130/82 (94) 98 141/82 09/01/17 04:00 97 Mechanical Ventilator 35 09/01/17 04:00 36.9 09/01/17 04:00 35 09/01/17 03:24 35 09/01/17 03:00 88 29 134/79 (95) 97 141/79 09/01/17 02:42 35 09/01/17 02:00 93 30 124/79 (99) 97 138/78 (104) 09/01/17 01:00 92 36 130/83 (100) 97 143/82 09/01/17 00:01 37.2 09/01/17 00:00 90 29 134/81 (106) 97 08/31/17 23:59 35 08/31/17 23:59 94 Mechanical Ventilator 35 08/31/17 23:35 30 08/31/17 23:00 96 30 125/70 (96) 94 08/31/17 22:00 37.5 101 35 129/76 (101) 94 08/31/17 21:00 104 35 123/68 (93) 92 08/31/17 20:21 30 08/31/17 20:00 94 Mechanical Ventilator 30 08/31/17 20:00 37.5 08/31/17 20:00 30 08/31/17 20:00 105 37 130/67 (93) 94 08/31/17 19:00 101 32 122/68 (86) 94 Mechanical Ventilator 30 08/31/17 18:00 101 31 122/68 (86) 93 Mechanical Ventilator 30 08/31/17 17:16 100 36 113/62 (79) 93 Mechanical Ventilator 30 08/31/17 17:00 105 37 118/59 (78) 94 Mechanical Ventilator 30 Laboratory Results: Last 24 Hours Test 08/31/17 17:33 08/31/17 19:32 08/31/17 21:32 08/31/17 23:20 Bedside Glucose 141 mg/dl 160 mg/dl 193 mg/dl 160 mg/dl Test 09/01/17 01:36 09/01/17 03:28 09/01/17 04:10 09/01/17 04:49 Bedside Glucose 128 mg/dl 112 mg/dl 128 mg/dl White Blood Count 12.81 K/uL Red Blood Count 3.23 M/uL Hemoglobin 9.3 g/dL Hematocrit 28.0 % Mean Corpuscular Volume 86.7 fL Mean Corpuscular Hemoglobin 28.8 pg Mean Corpuscular Hemoglobin Concent 33.2 g/dl Platelet Count 212 K/uL Mean Platelet Volume 10.1 fL Neutrophils (%) (Auto) 79.0 % Lymphocytes (%) (Auto) 13.8 % Monocytes (%) (Auto) 5.9 % Eosinophils (%) (Auto) 0.2 % Basophils (%) (Auto) 0.1 % Neutrophils # (Auto) 10.13 K/uL Lymphocytes # (Auto) 1.77 K/uL Monocytes # (Auto) 0.75 K/uL Eosinophils # (Auto) 0.02 K/uL Basophils # (Auto) 0.01 K/uL RDW Standard Deviation 51.3 fL RDW Coefficient of Variation 15.9 % Immature Granulocyte % (Auto) 1.0 % Immature Granulocyte # (Auto) 0.13 K/uL Sodium Level 135 mmol/L Potassium Level 4.4 mmol/L Chloride Level 109 mmol/L Carbon Dioxide Level 21 mmol/L Anion Gap 5.0 mmol/L Blood Urea Nitrogen 12 mg/dl Creatinine 0.62 mg/dl Est Creatinine Clear Calc Drug Dose 137.2 ml/min Estimated GFR () 131.6 Estimated GFR (Non- 113.6 BUN/Creatinine Ratio 19.2 Random Glucose 112 mg/dl Calcium Level 8.0 mg/dl Phosphorus Level 4.2 mg/dl Magnesium Level 2.0 mg/dl Total Bilirubin 0.4 mg/dl Aspartate Amino Transf (AST/SGOT) 35 U/L Alanine Aminotransferase (ALT/SGPT) 21 U/L Alkaline Phosphatase 104 U/L Total Protein 5.9 gm/dl Albumin 2.3 gm/dl Globulin 3.6 gm/dl Albumin/Globulin Ratio 0.6 Procalcitonin 6.91 ng/ml Test 09/01/17 05:29 09/01/17 06:23 09/01/17 07:44 09/01/17 09:22 Bedside Glucose 118 mg/dl 128 mg/dl 136 mg/dl 142 mg/dl Test 09/01/17 10:54 09/01/17 13:18 09/01/17 14:25 09/01/17 15:18 Bedside Glucose 144 mg/dl 114 mg/dl 103 mg/dl
[2017-09-01] MEDS ORDERED: FUROSEMIDE INJ 40 MG in SYRINGE 0 ML IV ONE (16:45)
--- NOTE | 2017-09-01 17:05 | Progress Note ---
Internal Med Progress Note Date of Service: September 01, 2017. Provider Documentation: SUBJECTIVE: Patient is currently on mechanical ventilation. Blood pressure on arterial line showing systolic blood pressure 180. Likely due to fluids from IV medications. Will start Lasix OBJECTIVE: Exam: General - sedated, on mechanical ventilation Lungs - on mechanical ventilation Heart- normal rate Abdomen- soft, positive bowel sounds Extremities- patient has arterial line, right wrist bump presumed to be abscess is not draining and no skin breaks of the right hand. Neuro- sedated ASSESSMENT & PLAN: This is a 37 year old female with Acute hypoxic respiratory failure , tachycardia in the setting of fever/ sepsis, may be secondary to pneumonia and/ or right wrist abscess vs fungemia As per ICU notes between 08/30/17 and 08/31/17: Patient underwent endotracheal intubation with fiberoptic bronchoscopy in the setting of worsening labored breathing and progressive signs and symptoms of ARDS. Relatively unremarkable bronchoscopy reported. Sepsis from skin source vs lung source (pneumonia) vs fungemia vs other unknown etiology -started on multiple antibiotics for broad spectrum coverage -was also on Acyclovir -but blood culture from 08/29/17 grew yeast, and started on caspofungin and with yeast identified the antibiotics narrowed to IV Vancomycin an IV Primaxin as per infectious disease consultation discussions -TTE performed on 08/31/17 without finding of endocarditis -BAL on 08/31/17 with results showing no acid fast, no -ophthalmology consult on 09/01/17 did not find evidence of fungal involvement in the eyes -urine screen was done to identify whether patient had risks of IV drug use, Urine toxicology negative, repeated toxicology screen to be sent -preliminary hepatitis C antibody positive, Hepatitis IgM antibody non reactive , Hepatitis B core IgM antibody non-reactive, HIV negative -Antistreptolysin is flagged positive but as per infectious disease the level in not clinically significant for streptococci exposure -fungal smear blood culture 09/01/17 pending, no yeast or fungal isolated -likely can further antibiotic de-escalation by tomorrow Autoimmune workup -rheumatoid factor pending, CHRISTIAN pending, glomerular basement membrane antibody pending Respiratory (pneumonia vs fungemia vs ARDS) -is intubated on mechanical ventilation -pulmonary consult has evaluated mechanical ventilation requirements, continue methylprednisolone at 80 mg/daily total -nebulizers as needed Cardiovascular -on this admission patient had tachycardia due to sepsis -previous to the intubation, patient on metoprolol succinate extended release. since this cannot be crushed for effects to work, will switch to metoprolol 5 mg IV q6 hr prn for heart rate above 110 bpm. If a standing longer acting beta vijay needed, can consider metoprolol tartrate crushed and put through NG tube -aspirin and atorvastatin was stopped while STEVEN was being pursued, STEVEN negative for endocarditics, can restart aspirin and atorvastatin as crushed medication -pressors as needed to maintain a Mean arterial pressure above 65; patient to receive albumin to reduce third spaced, been hypertensive likely from fluids from IV medications, IV Lasix 40 mg ordered x 1 Diabetes Type 2, pharmacy glycemic consult for diabetes management Nutrition: Tube feeds AJIT - resolved with IV fluids, continue to monitor renal function DVT PROPHYLAXIS: Lovenox 40 mg daily Full Code Status Patient's Health Care Agent: Susan Ramesh [phone] Vital Signs: Date Time Temp Pulse Resp B/P (MAP) Pulse Ox O2 Delivery O2 Flow Rate FiO2 09/01/17 15:19 30 09/01/17 15:00 82 30 142/90 (107) 95 Mechanical Ventilator 30 09/01/17 14:22 30 09/01/17 14:00 79 29 135/85 (102) 95 Mechanical Ventilator 30 09/01/17 13:00 86 31 155/96 (115) 96 Mechanical Ventilator 30 09/01/17 12:00 37.4 89 38 152/96 (114) 96 Mechanical Ventilator 30 09/01/17 12:00 35 09/01/17 12:00 Mechanical Ventilator 09/01/17 11:12 30 09/01/17 10:25 30 09/01/17 10:00 93 41 155/99 (117) 95 Mechanical Ventilator 30 09/01/17 09:00 83 30 135/85 (102) 95 Mechanical Ventilator 30 09/01/17 08:00 37.2 91 30 150/96 (114) 95 Mechanical Ventilator 30 09/01/17 08:00 95 Mechanical Ventilator 35 09/01/17 08:00 35 09/01/17 07:37 35 09/01/17 07:00 90 31 147/90 (109) 97 Mechanical Ventilator 30 09/01/17 07:00 90 37 147/90 (100) 96 150/83 09/01/17 06:01 35 09/01/17 06:00 81 29 129/81 (92) 95 140/77 5/6/18 05:00 86 32 141/95 (110) 97 157/87 09/01/17 04:00 87 29 130/82 (94) 98 141/82 09/01/17 04:00 97 Mechanical Ventilator 35 09/01/17 04:00 36.9 09/01/17 04:00 35 09/01/17 03:24 35 09/01/17 03:00 88 29 134/79 (95) 97 141/79 09/01/17 02:42 35 09/01/17 02:00 93 30 124/79 (99) 97 138/78 (104) 09/01/17 01:00 92 36 130/83 (100) 97 143/82 09/01/17 00:01 37.2 09/01/17 00:00 90 29 134/81 (106) 97 08/31/17 23:59 35 08/31/17 23:59 94 Mechanical Ventilator 35 08/31/17 23:35 30 08/31/17 23:00 96 30 125/70 (96) 94 08/31/17 22:00 37.5 101 35 129/76 (101) 94 08/31/17 21:00 104 35 123/68 (93) 92 08/31/17 20:21 30 08/31/17 20:00 94 Mechanical Ventilator 30 08/31/17 20:00 37.5 08/31/17 20:00 30 08/31/17 20:00 105 37 130/67 (93) 94 08/31/17 19:00 101 32 122/68 (86) 94 Mechanical Ventilator 30 08/31/17 18:00 101 31 122/68 (86) 93 Mechanical Ventilator 30 08/31/17 17:16 100 36 113/62 (79) 93 Mechanical Ventilator 30 Lab Results: Results Past 24 Hours Test 08/31/17 17:33 08/31/17 19:32 08/31/17 21:32 08/31/17 23:20 Range/Units Bedside Glucose 141 160 193 160 70-90 mg/dl Test 09/01/17 01:36 09/01/17 03:28 09/01/17 04:10 09/01/17 04:49 Range/Units Bedside Glucose 128 112 128 70-90 mg/dl White Blood Count 12.81 4.8-10.8 K/uL Red Blood Count 3.23 4.2-5.4 M/uL Hemoglobin 9.3 12.0-16.0 g/dL Hematocrit 28.0 37-47 % Mean Corpuscular Volume 86.7 80-100 fL Mean Corpuscular Hemoglobin 28.8 25-34 pg Mean Corpuscular Hemoglobin Concent 33.2 32-36 g/dl Platelet Count 212 130-400 K/uL Mean Platelet Volume 10.1 7.4-10.4 fL Neutrophils (%) (Auto) 79.0 % Lymphocytes (%) (Auto) 13.8 % Monocytes (%) (Auto) 5.9 % Eosinophils (%) (Auto) 0.2 % Basophils (%) (Auto) 0.1 % Neutrophils # (Auto) 10.13 1.4-6.5 K/uL Lymphocytes # (Auto) 1.77 1.2-3.4 K/uL Monocytes # (Auto) 0.75 0.11-0.59 K/uL Eosinophils # (Auto) 0.02 0-0.5 K/uL Basophils # (Auto) 0.01 0-0.2 K/uL RDW Standard Deviation 51.3 36.4-46.3 fL RDW Coefficient of Variation 15.9 11.5-14.5 % Immature Granulocyte % (Auto) 1.0 % Immature Granulocyte # (Auto) 0.13 0.00-0.02 K/uL Sodium Level 135 136-145 mmol/L Potassium Level 4.4 3.5-5.1 mmol/L Chloride Level 109 98-107 mmol/L Carbon Dioxide Level 21 21-32 mmol/L Anion Gap 5.0 3-11 mmol/L Blood Urea Nitrogen 12 7-18 mg/dl Creatinine 0.62 0.60-1.20 mg/dl Est Creatinine Clear Calc Drug Dose 137.2 ml/min Estimated GFR () 131.6 Estimated GFR (Non- 113.6 BUN/Creatinine Ratio 19.2 10-20 Random Glucose 112 70-99 mg/dl Calcium Level 8.0 8.5-10.1 mg/dl Phosphorus Level 4.2 2.5-4.9 mg/dl Magnesium Level 2.0 1.8-2.4 mg/dl Total Bilirubin 0.4 0.2-1 mg/dl Aspartate Amino Transf (AST/SGOT) 35 15-37 U/L Alanine Aminotransferase (ALT/SGPT) 21 12-78 U/L Alkaline Phosphatase 104 45-117 U/L Total Protein 5.9 6.4-8.2 gm/dl Albumin 2.3 3.4-5.0 gm/dl Globulin 3.6 2.5-4.0 gm/dl Albumin/Globulin Ratio 0.6 0.9-2 Procalcitonin 6.91 0-0.5 ng/ml Test 09/01/17 05:29 09/01/17 06:23 09/01/17 07:44 09/01/17 09:22 Range/Units Bedside Glucose 118 128 136 142 70-90 mg/dl Test 09/01/17 10:54 09/01/17 13:18 09/01/17 14:25 09/01/17 15:18 Range/Units Bedside Glucose 144 114 103 70-90 mg/dl Microbiology Results 09/01/17 Fungal Smear, Received Pending 09/01/17 Fungal Culture, Received Pending
[2017-09-01] MEDS: METOPROLOL TARTRATE 1 MG/ML VIAL IV. SCH ×2 (17:50→23:50)
[2017-09-01] MEDS: ENOXAPARIN 40 MG/0.4 ML SYR SQ SCH (20:40)
[2017-09-01] MEDS: INSULIN GLARGINE SOLOSTAR 100 UNITS/ML 3 ML PEN SC SCH (20:47)
[2017-09-01] MEDS ORDERED: FUROSEMIDE INJ 40 MG in SYRINGE 0 ML IV SCH (21:00)
[2017-09-01 21:10] LABS: HEMATOCRIT 29.4 % (37-47); HEMOGLOBIN 9.5 g/dL (12.0-16.0); MEAN CELL VOLUME 87.5 fL (80-100); MEAN CORPUSCULAR HEMOGLOBIN 28.3 pg (25-34); MEAN CORPUSCULAR HGB CONC 32.3 g/dl (32-36); MEAN PLATELET VOLUME 9.3 fL (7.4-10.4); PLATELET COUNT 194 K/uL (130-400); RED CELL DISTRIBUTION WIDTH SD 51.9 fL (36.4-46.3); WHITE BLOOD COUNT 11.44 K/uL (4.8-10.8)
[2017-09-01 21:42] LABS: CALCIUM 8.5 mg/dl (8.5-10.1); CREATININE 0.68 mg/dl (0.60-1.20); PHOSPHORUS 4.4 mg/dl (2.5-4.9); POTASSIUM 4.1 mmol/L (3.5-5.1)
[2017-09-02] VITALS (22 sets, daily range): BP systolic 129–177; BP diastolic 70–93; PULSE 66–112; TEMP 37–37.7; O2SAT 92–100
[2017-09-02] MEDS: VANCOMYCIN IV 2,000 MG in SODIUM CHLORIDE 0.9% 250ML 250 ML IV SCH (02:18)
[2017-09-02] MEDS ORDERED: FENTANYL CITRATE INJ 50 MCG/1 ML 2 ML VIAL IV PRN (02:30)
[2017-09-02] MEDS: ALBUMIN HUMAN 25% 12.5 GM/50 ML VIAL IV SCH ×3 (02:48→18:46)
[2017-09-02] MEDS: PROPOFOL IV EMULSION 10 MG/ML 100 ML VIAL IV PRN (03:18)
[2017-09-02] MEDS: IMIPENEM-CILASTATIN 500 MG in DEXTROSE 5% 100ML 100 ML IV SCH (03:40)
[2017-09-02] MEDS: METHYLPREDNISOLONE IV 40 MG in SYRINGE 0 ML IV SCH ×2 (03:40→16:38)
[2017-09-02] MEDS: INSULIN ASPART 100 UNITS/ML 3 ML PEN SC SCH ×6 (03:51→20:11)
[2017-09-02] MEDS: IPRATROPIUM BROMIDE HFA INHALER INH SCH ×7 (04:00→22:30)
[2017-09-02] MEDS: LEValbuterol HFA 15GM INHALER INH SCH ×7 (04:00→22:30)
[2017-09-02 04:07] LABS: BASO % 0.2 %; BASO ABS # 0.02 K/uL (0-0.2); EOS % 1.1 %; EOS ABS # 0.13 K/uL (0-0.5); HEMATOCRIT 27.5 % (37-47); HEMOGLOBIN 8.9 g/dL (12.0-16.0); IG# 0.19 K/uL (0.00-0.02); LYMPH ABS # 3.18 K/uL (1.2-3.4); MEAN CELL VOLUME 87.6 fL (80-100); MEAN CORPUSCULAR HEMOGLOBIN 28.3 pg (25-34); MEAN CORPUSCULAR HGB CONC 32.4 g/dl (32-36); MONO % 5.8 %; MONO ABS # 0.68 K/uL (0.11-0.59); NEUT % 64.3 %; NEUT ABS # 7.58 K/uL (1.4-6.5); PLATELET COUNT 192 K/uL (130-400); RED CELL DISTRIBUTION WIDTH SD 51.4 fL (36.4-46.3); WHITE BLOOD COUNT 11.78 K/uL (4.8-10.8)
[2017-09-02 04:26] LABS: ALBUMIN 3.8 gm/dl (3.4-5.0); CALCIUM 8.5 mg/dl (8.5-10.1); CREATININE 0.68 mg/dl (0.60-1.20); POTASSIUM 3.9 mmol/L (3.5-5.1)
[2017-09-02 04:33] LABS: PHOSPHORUS 3.8 mg/dl (2.5-4.9); TOTAL PROTEIN 6.8 gm/dl (6.4-8.2)
[2017-09-02] MEDS: METOPROLOL TARTRATE 1 MG/ML VIAL IV. SCH ×3 (05:54→16:37)
[2017-09-02] MEDS: FENTANYL CITRATE INJ 50 MCG/1 ML 2 ML VIAL IV PRN ×7 (06:00→21:27)
--- NOTE | 2017-09-02 07:16 | TEE ---
INDICATIONS: Rule out aortic vegetation, abnormal aortic valve, positive blood cultures. HISTORY OF PRESENT ILLNESS: The patient is a 37-year-old female, intubated in the intensive care unit, critically ill, referred for urgent transesophageal echocardiogram in the setting of possible fungal septicemia. DESCRIPTION OF PROCEDURE: The procedure was performed urgently. The patient was sedated and intubated on the ventilator. Additional sedation was given as well as topical anesthetic agent to the posterior oropharynx, and multiplane transesophageal probe passed into the esophagus without difficulty. Images were obtained using color flow as well as pulse wave and continuous wave Doppler analysis. Patient during the procedure received additional sedation via intensive care unit staffing to aid in sedation. Post procedure probe was removed and patient having tolerated without difficulty. RESULTS: The left ventricle was normal in size. Mild increase in left ventricular wall thickness, with hyperdynamic overall LV function, EF 70% or greater, without wall motion abnormality. The left atrium was mildly enlarged. The right atrium and ventricle upper limits of normal in size. The aortic root was not enlarged. The aortic valve appears congenitally abnormal with thickening of all leaflets and partial fusion of the noncoronary and left cusps. There is no visualized vegetation. Structure opens well. Peak aortic valve velocity through the valve structure was 2.9 m/sec in the setting of hyperdynamic function and tachycardia. The mitral valve and tricuspid valve anatomy was normal. The pulmonary valve and views obtained also appeared normal. There are no visualized vegetations or masses. There is no pericardial effusion. Doppler analysis revealed trivial aortic insufficiency only. The aortic root was normal in size but trending toward the smaller side of normal. The ascending and descending thoracic aorta free of atheroma, disease, or mass. FINAL IMPRESSION: 1. No evidence of infectious endocarditis with absence of vegetation or abscess. 2. Probably congenital abnormal aortic valve with moderate leaflet edge thickening and partial fusion. 3. Trivial aortic and tricuspid insufficiency. 4. Hyperdynamic left ventricular function, ejection fraction greater than 70%.
--- NOTE | 2017-09-02 07:21 | DIAGNOSTIC IMAGING REPORT ---
CHEST ONE VIEW PORTABLE CLINICAL HISTORY: 37 years-old Female presenting with intubation ARDS. TECHNIQUE: Portable upright AP view of the chest was obtained. COMPARISON: 09/01/2017. FINDINGS: Left upper extremity catheter terminates in the axillary region, reportedly an arterial line. Endotracheal tube terminates in the mid thoracic trachea 2.7 cm from the misti. Nasogastric tube descends below the diaphragm. Cardiomediastinal silhouette normal. Pulmonary vascular prominence unchanged. Diffusely increased density of the lungs unchanged. No large effusion or pneumothorax. Osseous structures normal. Upper abdomen normal. IMPRESSION: 1. Appropriately positioned endotracheal tube. 2. Diffusely increased density of the the lungs could be compatible with diffuse alveolar damage. Electronically signed by: Irvin Fox M.D. 09/02/2017 7:19 AM Dictated Date/Time: 09/02/2017 7:16 AM
[2017-09-02] MEDS: CLOPIDOGREL BISULFATE 75 MG TAB PO SCH (08:26)
[2017-09-02] MEDS: LISINOPRIL 10 MG TAB PO SCH (08:26)
[2017-09-02] MEDS: GABAPENTIN 600 MG TAB PO SCH ×3 (08:26→21:28)
[2017-09-02] MEDS: CASPOFUNGIN INJ 50 MG in SODIUM CHLORIDE 0.9% 100ML 100 ML IV SCH (08:27)
[2017-09-02] MEDS: INSULIN GLARGINE SOLOSTAR 100 UNITS/ML 3 ML PEN SC SCH ×2 (08:27→21:37)
[2017-09-02] MEDS: ASPIRIN 81 MG CHEW NG SCH (09:33)
[2017-09-02] MEDS: ATORVASTATIN 40 MG TAB NG SCH (09:33)
[2017-09-02] MEDS: PANTOprazole INJ 40 MG in SYRINGE 0 ML IV SCH (09:34)
--- NOTE | 2017-09-02 09:43 | Pharmacy Progress Note ---
Glycemic Control Progress Note Date of Service September 02, 2017. Scope Glycemic Pharmacist consulted for glycemic control to write orders per [facility] inpatient glycemic control protocol. Objective Accuchecks BSG (last 24hrs): Test 09/01/17 10:54 09/01/17 13:18 09/01/17 14:25 09/01/17 15:46 Bedside Glucose 144 mg/dl (70-90) 114 mg/dl (70-90) 103 mg/dl (70-90) 105 mg/dl (70-90) Test 09/01/17 19:46 09/01/17 20:45 09/01/17 21:01 09/01/17 23:47 Bedside Glucose 167 mg/dl (70-90) 174 mg/dl (70-90) 152 mg/dl (70-90) Random Glucose 174 mg/dl (70-99) Test 09/02/17 03:44 09/02/17 03:58 Bedside Glucose 108 mg/dl (70-90) Random Glucose 105 mg/dl (70-99) HbA1c: Test 08/29/17 16:55 Hemoglobin A1c 9.7 % (4.5-5.6) H Recent Pertinent Medications The patient is currently receiving: * Basal insulin: Lantus 70 units 5/6 AM (to transition off insulin drip) then BID based on BSG * 0 units for BSG less than 100 mg/dL * 35 units for BSG 100-180 mg/dL * 40 units for BSG greater than 180 mg/dL * Correctional Insulin: Novolog Correction per scale q4h Goal Range: Low 140 mg/dL - High 180 mg/dL Correction Factor: 15 mg/dL/unit * Prandial insulin: Per carb ratio of 1 unit per 3 grams CHO consumed * Oral Agents: On hold Outpatient Anti-Diabetic Meds Metformin 1000 mg po BID Assessment & Plan ASSESSMENT: * 37 yo F ventilated and in ICU with acute respiratory failure, sepsis 2nd fungemia and possible pneumonia and/or skin/skin structure infection 2nd abscess (s/p I&D) * Patient was on an insulin drip 08/29 to 09/01 which was running at high rates, ranging 3-12 units/hr * Transitioned to basal/bolus successfully yesterday with BSG's ranging 103-208 mg/dL in the last 24 hours * Assessment of stressors * Continues to require ventilation * Steroids continuing at current dose. * Antibiotics discontinued - now only on antifungal coverage * Per [employer]OT [employer]OVER, tubefeeds were resumed yesterday afternoon at 20 mL/hr. Increased to 40 mL/hr this AM. * OK to decrease goal range as patient should still receive CHO coverage for BSG 's less than 140 mg/dL and correctional insulin for BSG's above 150 mg/dL * Oral agent (metformin) to remain on hold 2nd critical illness PLAN FOR INPATIENT GLYCEMIC CONTROL: * Oral Agents * Continue to hold outpatient oral diabetes medications. * Adjust Basal insulin Lantus SQ BID based on BSG * 15 units for BSG less than 100 mg/dL (hold if tubefeeds less than or equal to 20 mL/hr) * 35 units for BSG 100-180 mg/dL * 50 units for BSG greater than 180 mg/dL * Bolus insulin * NovoLog per scale q4h * Decrease Goal Range: Low 120 mg/dL - High 150 mg/dL * Correction Factor: 15 mg/dL/unit * Nutritional / Prandial insulin per carb ratio of 1 unit per 3 grams CHO consumed * Please note that the plan above was derived based on current level of insulin resistance and hospital stress. These recommendations are appropriate for inpatient admission only. Plan of care upon discharge will need to be reassessed to avoid potential outpatient hypo/hyperglycemia. Thank you.
--- NOTE | 2017-09-02 10:53 | Progress Note ---
Subjective Date of Service: September 02, 2017. Subjective Pt evaluation today including: conversation w/ patient, physical exam, chart review, lab review pt now intubated, awake on vent. afebrile. initial blood cultures with yeast 1 bottle, now on caspo. echo negative, optho eval negative. tolerating antimicrobials. s/p bronch, cultures negative. ct abd pelvis negative but significant pulm edema noted. Problem List Medical Problems: (1) Abdominal pain Status: Acute (2) Abscess of left hand including fingers Status: Acute (3) Abscess of right forearm Status: Acute (4) Abscess of upper extremity Status: Acute (5) Abscess or cellulitis of scalp Status: Acute (6) Anemia Status: Acute (7) Asthma Status: Chronic (8) Benign hypertension Status: Chronic (9) Colitis Status: Acute (10) Diabetes mellitus Status: Chronic (11) Dyslipidemia Status: Chronic (12) Elevated lactic acid level Status: Acute (13) Ganglion cyst of tendon sheath of left hand Status: Acute (14) Hyperglycemia Status: Acute (15) Hypoxemia Status: Acute (16) Infectious colitis Status: Acute (17) Left groin pain Status: Acute (18) Low back pain Status: Acute (19) Non-STEMI (non-ST elevated myocardial infarction) Status: Acute (20) Right ankle pain Status: Acute (21) Right hand pain Status: Acute (22) Sepsis affecting skin Status: Acute Objective Vital Signs Date Time Temp Pulse Resp B/P (MAP) Pulse Ox O2 Delivery O2 Flow Rate FiO2 09/02/17 09:01 37.2 69 30 176/87 (116) 97 09/02/17 09:00 37.1 80 22 174/78 (110) 100 Mechanical Ventilator 09/02/17 08:00 40 09/02/17 08:00 37.0 80 35 143/92 (109) 93 Mechanical Ventilator 09/02/17 08:00 Mechanical Ventilator 40 09/02/17 07:47 40 09/02/17 06:03 72 30 139/84 (92) 95 161/75 09/02/17 06:01 37.1 Mechanical Ventilator 09/02/17 05:54 78 158/74 09/02/17 05:32 112 41 09/02/17 05:10 28 09/02/17 05:00 30 09/02/17 05:00 72 35 148/89 (107) 97 172/80 5/7/18 04:02 37.2 Mechanical Ventilator 09/02/17 04:02 71 31 152/85 (92) 98 168/80 09/02/17 04:00 Mechanical Ventilator 30 09/02/17 04:00 30 09/02/17 03:01 77 35 150/83 (113) 98 167/78 09/02/17 02:26 30 09/02/17 02:00 80 34 151/88 (97) 98 168/79 09/02/17 02:00 37.6 Mechanical Ventilator 09/02/17 01:00 78 32 145/83 (91) 99 163/78 09/02/17 00:00 85 36 129/83 (94) 92 162/78 (115) 09/02/17 00:00 30 09/02/17 00:00 Mechanical Ventilator 30 09/02/17 00:00 37.1 Mechanical Ventilator 30 09/01/17 23:50 73 142/74 5/18 23:23 30 09/01/17 23:00 64 27 142/74 (82) 98 166/73 09/01/17 22:40 68 26 163/79 (114) 98 162/74 09/01/17 22:04 36.8 Mechanical Ventilator 30 09/01/17 22:04 72 37 153/87 (97) 98 176/81 18 21:00 75 34 153/71 (96) 97 172/70 /18 20:06 30 18 20:00 96 Mechanical Ventilator 30 09/01/17 20:00 30 18 20:00 81 31 135/78 (109) 96 153/76 18 20:00 37.7 75 31 135/78 (97) 97 Mechanical Ventilator 30 18 19:00 84 38 164/93 (108) 98 164/84 5/6/18 18:00 78 35 163/106 (125) 99 Mechanical Ventilator 30 18 17:50 79 181/92 56/18 17:22 30 /18 17:00 83 35 175/97 (123) 98 Mechanical Ventilator 30 18 16:00 37.2 85 35 175/104 (127) 96 Mechanical Ventilator 30 18 16:00 35 5//18 16:00 Mechanical Ventilator 09/01/17 15:19 30 09/01/17 15:00 82 30 142/90 (107) 95 Mechanical Ventilator 30 09/01/17 14:22 30 09/01/17 14:00 79 29 135/85 (102) 95 Mechanical Ventilator 30 09/01/17 13:00 86 31 155/96 (115) 96 Mechanical Ventilator 30 09/01/17 12:00 37.4 89 38 152/96 (114) 96 Mechanical Ventilator 30 09/01/17 12:00 35 09/01/17 12:00 Mechanical Ventilator 09/01/17 11:12 30 Physical Exam General Appearance: WD/WN Eyes: normal inspection Neck: supple Respiratory/Chest: lungs clear, + decreased breath sounds Cardiovascular: regular rate, rhythm, no edema Abdomen: soft Extremities: non-tender, no pedal edema Neurologic/Psychiatric: alert Skin: normal color Laboratory Results Item Value Date Time Blood Culture - Preliminary Resulted 08/29/17 1725 Blood YEAST Gram Stain - Final Complete 08/30/17 1830 Bronchial Washings Right Middle Lobe Last 24 Hours Test 09/01/17 10:54 09/01/17 13:18 09/01/17 14:25 09/01/17 15:18 Bedside Glucose 144 mg/dl 114 mg/dl 103 mg/dl Test 09/01/17 15:46 09/01/17 19:46 09/01/17 20:45 09/01/17 21:01 Bedside Glucose 105 mg/dl 167 mg/dl 174 mg/dl White Blood Count 11.44 K/uL Red Blood Count 3.36 M/uL Hemoglobin 9.5 g/dL Hematocrit 29.4 % Mean Corpuscular Volume 87.5 fL Mean Corpuscular Hemoglobin 28.3 pg Mean Corpuscular Hemoglobin Concent 32.3 g/dl RDW Standard Deviation 51.9 fL RDW Coefficient of Variation 16.0 % Platelet Count 194 K/uL Mean Platelet Volume 9.3 fL Sodium Level 139 mmol/L Potassium Level 4.1 mmol/L Chloride Level 107 mmol/L Carbon Dioxide Level 23 mmol/L Anion Gap 9.0 mmol/L Blood Urea Nitrogen 16 mg/dl Creatinine 0.68 mg/dl Est Creatinine Clear Calc Drug Dose 122.9 ml/min Estimated GFR () 127.7 Estimated GFR (Non- 110.2 BUN/Creatinine Ratio 22.8 Random Glucose 174 mg/dl Calcium Level 8.5 mg/dl Phosphorus Level 4.4 mg/dl Magnesium Level 1.8 mg/dl Test 09/01/17 23:47 09/02/17 03:44 09/02/17 03:58 Bedside Glucose 152 mg/dl 108 mg/dl White Blood Count 11.78 K/uL Red Blood Count 3.14 M/uL Hemoglobin 8.9 g/dL Hematocrit 27.5 % Mean Corpuscular Volume 87.6 fL Mean Corpuscular Hemoglobin 28.3 pg Mean Corpuscular Hemoglobin Concent 32.4 g/dl Platelet Count 192 K/uL Mean Platelet Volume 10.0 fL Neutrophils (%) (Auto) 64.3 % Lymphocytes (%) (Auto) 27.0 % Monocytes (%) (Auto) 5.8 % Eosinophils (%) (Auto) 1.1 % Basophils (%) (Auto) 0.2 % Neutrophils # (Auto) 7.58 K/uL Lymphocytes # (Auto) 3.18 K/uL Monocytes # (Auto) 0.68 K/uL Eosinophils # (Auto) 0.13 K/uL Basophils # (Auto) 0.02 K/uL RDW Standard Deviation 51.4 fL RDW Coefficient of Variation 16.0 % Immature Granulocyte % (Auto) 1.6 % Immature Granulocyte # (Auto) 0.19 K/uL Red Blood Cell Morphology Unremarkable Sodium Level 140 mmol/L Potassium Level 3.9 mmol/L Chloride Level 111 mmol/L Carbon Dioxide Level 23 mmol/L Anion Gap 6.0 mmol/L Blood Urea Nitrogen 17 mg/dl Creatinine 0.68 mg/dl Est Creatinine Clear Calc Drug Dose 122.9 ml/min Estimated GFR () 127.7 Estimated GFR (Non- 110.2 BUN/Creatinine Ratio 24.4 Random Glucose 105 mg/dl Calcium Level 8.5 mg/dl Phosphorus Level 3.8 mg/dl Magnesium Level 1.9 mg/dl Total Bilirubin 0.6 mg/dl Aspartate Amino Transf (AST/SGOT) 30 U/L Alanine Aminotransferase (ALT/SGPT) 25 U/L Alkaline Phosphatase 115 U/L Total Protein 6.8 gm/dl Albumin 3.8 gm/dl Globulin 3.0 gm/dl Albumin/Globulin Ratio 1.3 Assessment and Plan (1) Fungemia Assessment & Plan: continue caspo for now, await final ID yeast, repeat blood cultures today. continue supportive care.
--- NOTE | 2017-09-02 11:47 | Critical Care Progress Note ---
Critical Care Progress Note Date of Service September 02, 2017. Attending Dr. Jaquez Subjective Unable to obtain history and ROS due to sedation. Patient does respond to her name and will open her eyes briefly. As the morning went on, she was able to respond to commands. Objective GENERAL : Intermittent acute distress EYES: No icterus, gaze conjugate. PERRL NOSE: No evidence of epistaxis MOUTH: No lesions or candidiasis. Endotracheal tube and orogastric tube in place NECK: Supple. No stridor or appreciation of air leak LUNGS: Coarse crackles at the bases. No rhonchi. HEART: Regular. Normal sinus rhythm on telemetry with a rate in the 80s ABDOMEN: Soft, NT, ND, BS Present EXTREMITIES: No LE edema, pedal pulses intact. Teds/SCDs in place NEURO: Sedated for mechanical ventilation Assessment & Plan Assessment: 37 yo female with a h/o HTN, T2DM, CAD, SC and suspected drug abuse presents with acute respiratory failure, abscess of the right wrist and sepsis. Blood cultures positive for yeast. Patient is being treated for sepsis secondary to fungemia vs pulmonary vs skin source. Overall plan for the day: Dc propofol, start to wean from vent, repeat ABG's, restart home cardio meds, dc vancomycin and imipenem. Follow I/O closely--will assess USG of IVC and right atrium to assess volume status. Neuro - -CAM positive, RASS+1 -Sedation; dc propofol. Continue Versed, Fentanyl -Patient responds to name and throughout the am, the patient was able to respond appropriately to simple commands -CT of the head if consciousness continues to wax and wane despite w/d of propofol and weaning off vent. 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 HCO3 24.2--->20.2 -Pulmonology following -CXR today revealed bilateral diffused increase in densities -Autoimmune work up includes CHRISTIAN, GBM antibodies--pending. RF, WNL GI - -Concern for aspiration--episode over the weekend -HOB>30 degrees -ppx--cont. ppi -Increased LFT's possibly 2/2 hep C (preliminarily positive) RENAL/LYTES - -No significant electrolyte imbalance -Cr. 1.39 at admission, AJIT has since resolved - -[place] intact ENDO - -h/o P5MS--hehfbqdo Lantus and ss NovoLog -A1C--9.7 HEM - -Hgb 8.9 today ID - -Fungemia--continue caspofungin -ID following -Hep c positive preliminarily -STEVEN no vegetations or abscess -CXR--persistent multifocal PNA LINES/IV ACCESS/FLUIDS - -PIVs intact. -follow I/O closely--+842 -USG of RV and IVC today -Concern for overload--concentrated IV medications and started Albumin 50mg 3 x day DVT PROPHYLAXIS - -Enoxaparin 40mg SQ Resident Physician Supervision Note: Dr. Lenin Hung was resident physician during care of patient. I separately evaluated patient and did history and exam. I discussed the case with the resident and generally agree with the findings and plan. Patient was discussed on multidisciplinary rounds. Patient has had significant improvement in her acute respiratory distress syndrome however her minute ventilation is very elevated. I suspect if the patient was extubated today her respiratory rate could lead to respiratory failure, I will continue her mechanical ventilation likely for another 24 hours and reassess tomorrow. We will continue the caspofungin for fungal anemia, there is no evidence of intraocular fungal infections. We have discontinued antibiotics at this time we will continue to monitor. I have personally spent 45 minutes of critical care time in the direct management of this patient. This is a life/limb threatening event. This includes time spent evaluating patient, direct bedside care, chart review, placing orders, interpretation of diagnostic studies, discussion with consultants, patient, and/or family members regarding treatment decisions, as well as other required patient management activities. This time is exclusive of all separately billable procedures, and teaching time and separate from and in addition to any other critical care service time. Documented By: Enrique Jaquez DO Consults & Procedures Consultants: Dr. Jensen -pulmonary Dr. Main -infectious disease Dr. Gonzales -cardiology Dr. Enriquez -ophthalmology Procedures: Endotracheal intubation 08/30/2017 Axillary arterial line 08/30/2017 Fiberoptic bronchoscopy 08/30/2017 Transesophageal echocardiogram 08/31/2017 Data Medications: Current Inpatient Medications Medications (Trade) Dose Ordered Sig/Bonny Route Start Time Stop Time Status Last Admin Dose Admin Acetaminophen (Tylenol Tab) 650 mg Q4H PRN PO 08/29/17 19:00 09/28/17 18:59 08/30/17 06:06 650 MG Al Hydrox/Mg Hydrox/Simethicone (Maalox Max Susp) 15 ml Q4H PRN PO 08/29/17 19:00 09/28/17 18:59 Magnesium Hydroxide (Milk Of Magnesia Susp) 30 ml Q12H PRN PO 08/29/17 19:00 09/28/17 18:59 Ondansetron HCl (Zofran Inj) 4 mg Q6H PRN IV 08/29/17 19:00 09/28/17 18:59 08/31/17 17:23 4 MG Glucose (Glucose 40% Gel) 15-30 GRAMS 15 GRAMS... UD PRN PO 08/29/17 21:00 09/28/17 20:59 Glucose (Glucose Chew Tab) 4-8 Tablets 4 Tabl... UD PRN PO 08/29/17 21:00 09/28/17 20:59 Dextrose (Dextrose 50% 50ML Syringe) 25-50ML 25ML FOR ... UD PRN IV 08/29/17 21:00 09/28/17 20:59 Glucagon (Glucagon Inj) 1 mg UD PRN IM 08/29/17 21:00 09/28/17 20:59 Carbohydrates (Carbohydrates For Hypoglycemia) 15-30 GRAMS 15 grams if BSG 54-69... UD PRN PO 08/29/17 21:00 09/28/17 20:59 Albuterol (Ventolin Hfa Inhaler) 2 puffs Q6H PRN INH 08/29/17 21:45 09/28/17 21:44 Clopidogrel Bisulfate (plAVix TAB) 75 mg QAM PO 08/30/17 09:00 09/29/17 08:59 09/02/17 08:26 75 MG Gabapentin (Neurontin Tab) 600 mg TID PO 08/30/17 09:00 09/29/17 08:59 09/02/17 08:26 600 MG Nitroglycerin (Nitrostat Tab) 0.4 mg UD PRN UT 08/29/17 21:45 09/28/17 21:44 Miscellaneous Information (Consult Glycemic Management Pharmacy) 1 ea UD PRN N/A 08/29/17 21:57 09/28/17 21:56 Ioversol (Optiray 320) 93 ml UD PRN IV 08/30/17 02:45 09/03/17 02:44 Levalbuterol (Xopenex 1.25MG/ 3ML Neb) 1.25 mg Q2H PRN INH 08/30/17 05:30 09/29/17 05:29 08/30/17 05:48 1.25 MG Enoxaparin Sodium (Lovenox Inj) 40 mg Q24H SQ 08/30/17 21:00 09/29/17 20:59 09/01/17 20:40 40 MG Ioversol (Optiray 320) 100 ml UD PRN IV 08/30/17 19:00 09/03/17 18:59 Levalbuterol (Xopenex Hfa Inhaler) 4 puffs Q4R INH 08/30/17 20:00 09/29/17 19:59 09/02/17 07:21 4 PUFFS Ipratropium Balsam (Atrovent Hfa Inhaler) 4 puffs Q4R INH 08/30/17 20:00 09/29/17 19:59 09/02/17 07:22 4 PUFFS Pantoprazole Sodium 40 mg/ Syringe 10 ml @ 5 mls/min DAILY@11 IV 08/31/17 11:00 09/30/17 10:59 09/02/17 09:34 5 MLS/MIN Metoprolol Tartrate (Lopressor Iv) 5 mg Q6H PRN IV 08/31/17 08:30 09/30/17 08:29 08/31/17 13:55 5 MG Methylprednisolone Sodium Succinate 40 mg/Syringe 0.64 ml @ 1.5 mls/min Q12H IV 08/31/17 16:00 09/30/17 15:59 09/02/17 03:40 1.5 MLS/MIN Enteral Nutritional Formula (Peptamen Intense VHP) 1,000 ml UD OG 08/31/17 13:00 09/30/17 12:59 09/01/17 15:37 1,000 ML Insulin Aspart (novoLOG ASPART) SLIDING SCALE Q4 SC 09/01/17 12:00 10/01/17 11:59 09/02/17 08:25 6 UNITS Albumin Human (Albumin 25%) 50 gm Q8H IV 09/01/17 11:00 09/04/17 10:59 09/02/17 02:48 50 GM Caspofungin 50 mg/ Sodium Chloride 110 ml @ 250 mls/hr DAILY IV 09/02/17 09:00 09/08/17 08:59 09/02/17 08:27 250 MLS/HR Midazolam HCl 250 ml @ 0 mls/hr Q0M PRN IV 09/01/17 11:15 10/01/17 11:14 09/01/17 17:11 6 MLS/HR Insulin Glargine (Lantus Solostar Pen) SEE PROTOCOL BID SC 09/01/17 21:00 10/01/17 20:59 09/02/17 08:27 40 UNITS Metoprolol Tartrate (Lopressor Iv) 2.5 mg Q6 IV. 09/01/17 18:00 10/01/17 17:59 09/02/17 05:54 2.5 MG Fentanyl Citrate (Fentanyl Inj) 50 mcg Q1H PRN IV 09/02/17 02:30 09/16/17 02:29 09/02/17 10:02 50 MCG Lisinopril (Zestril Tab) 10 mg DAILY PO 09/02/17 09:00 10/02/17 08:59 09/02/17 08:26 10 MG Aspirin (Aspirin Chew) 81 mg QAM NG 09/02/17 10:00 10/02/17 09:59 09/02/17 09:33 81 MG Atorvastatin Calcium (Lipitor Tab) 80 mg QAM NG 09/02/17 10:00 10/02/17 09:59 09/02/17 09:33 80 MG Vital Signs: Date Time Temp Pulse Resp B/P (MAP) Pulse Ox O2 Delivery O2 Flow Rate FiO2 09/02/17 09:01 37.2 69 30 176/87 (116) 97 09/02/17 09:00 37.1 80 22 174/78 (110) 100 Mechanical Ventilator 09/02/17 08:00 40 09/02/17 08:00 37.0 80 35 143/92 (109) 93 Mechanical Ventilator 09/02/17 08:00 Mechanical Ventilator 40 09/02/17 07:47 40 09/02/17 06:03 72 30 139/84 (92) 95 161/75 09/02/17 06:01 37.1 Mechanical Ventilator 09/02/17 05:54 78 158/74 09/02/17 05:32 112 41 09/02/17 05:10 28 09/02/17 05:00 30 09/02/17 05:00 72 35 148/89 (107) 97 172/80 09/02/17 04:02 37.2 Mechanical Ventilator 09/02/17 04:02 71 31 152/85 (92) 98 168/80 09/02/17 04:00 Mechanical Ventilator 30 09/02/17 04:00 30 09/02/17 03:01 77 35 150/83 (113) 98 167/78 09/02/17 02:26 30 09/02/17 02:00 80 34 151/88 (97) 98 168/79 09/02/17 02:00 37.6 Mechanical Ventilator 09/02/17 01:00 78 32 145/83 (91) 99 163/78 09/02/17 00:00 85 36 129/83 (94) 92 162/78 (115) 09/02/17 00:00 30 09/02/17 00:00 Mechanical Ventilator 30 09/02/17 00:00 37.1 Mechanical Ventilator 30 09/01/17 23:50 73 142/74 09/01/17 23:23 30 09/01/17 23:00 64 27 142/74 (82) 98 166/73 09/01/17 22:40 68 26 163/79 (114) 98 162/74 09/01/17 22:04 36.8 Mechanical Ventilator 30 09/01/17 22:04 72 37 153/87 (97) 98 176/81 09/01/17 21:00 75 34 153/71 (96) 97 172/70 09/01/17 20:06 30 09/01/17 20:00 96 Mechanical Ventilator 30 09/01/17 20:00 30 09/01/17 20:00 81 31 135/78 (109) 96 153/76 09/01/17 20:00 37.7 75 31 135/78 (97) 97 Mechanical Ventilator 30 09/01/17 19:00 84 38 164/93 (108) 98 164/84 09/01/17 18:00 78 35 163/106 (125) 99 Mechanical Ventilator 30 09/01/17 17:50 79 181/92 09/01/17 17:22 30 09/01/17 17:00 83 35 175/97 (123) 98 Mechanical Ventilator 30 09/01/17 16:00 37.2 85 35 175/104 (127) 96 Mechanical Ventilator 30 09/01/17 16:00 35 09/01/17 16:00 Mechanical Ventilator 09/01/17 15:19 30 09/01/17 15:00 82 30 142/90 (107) 95 Mechanical Ventilator 30 09/01/17 14:22 30 09/01/17 14:00 79 29 135/85 (102) 95 Mechanical Ventilator 30 09/01/17 13:00 86 31 155/96 (115) 96 Mechanical Ventilator 30 09/01/17 12:00 37.4 89 38 152/96 (114) 96 Mechanical Ventilator 30 09/01/17 12:00 35 09/01/17 12:00 Mechanical Ventilator 09/01/17 11:12 30 Laboratory Results: Last 24 Hours Test 09/01/17 10:54 09/01/17 13:18 09/01/17 14:25 09/01/17 15:18 Bedside Glucose 144 mg/dl 114 mg/dl 103 mg/dl Test 09/01/17 15:46 09/01/17 19:46 09/01/17 20:45 09/01/17 21:01 Bedside Glucose 105 mg/dl 167 mg/dl 174 mg/dl White Blood Count 11.44 K/uL Red Blood Count 3.36 M/uL Hemoglobin 9.5 g/dL Hematocrit 29.4 % Mean Corpuscular Volume 87.5 fL Mean Corpuscular Hemoglobin 28.3 pg Mean Corpuscular Hemoglobin Concent 32.3 g/dl RDW Standard Deviation 51.9 fL RDW Coefficient of Variation 16.0 % Platelet Count 194 K/uL Mean Platelet Volume 9.3 fL Sodium Level 139 mmol/L Potassium Level 4.1 mmol/L Chloride Level 107 mmol/L Carbon Dioxide Level 23 mmol/L Anion Gap 9.0 mmol/L Blood Urea Nitrogen 16 mg/dl Creatinine 0.68 mg/dl Est Creatinine Clear Calc Drug Dose 122.9 ml/min Estimated GFR () 127.7 Estimated GFR (Non- 110.2 BUN/Creatinine Ratio 22.8 Random Glucose 174 mg/dl Calcium Level 8.5 mg/dl Phosphorus Level 4.4 mg/dl Magnesium Level 1.8 mg/dl Test 09/01/17 23:47 09/02/17 03:44 09/02/17 03:58 Bedside Glucose 152 mg/dl 108 mg/dl White Blood Count 11.78 K/uL Red Blood Count 3.14 M/uL Hemoglobin 8.9 g/dL Hematocrit 27.5 % Mean Corpuscular Volume 87.6 fL Mean Corpuscular Hemoglobin 28.3 pg Mean Corpuscular Hemoglobin Concent 32.4 g/dl Platelet Count 192 K/uL Mean Platelet Volume 10.0 fL Neutrophils (%) (Auto) 64.3 % Lymphocytes (%) (Auto) 27.0 % Monocytes (%) (Auto) 5.8 % Eosinophils (%) (Auto) 1.1 % Basophils (%) (Auto) 0.2 % Neutrophils # (Auto) 7.58 K/uL Lymphocytes # (Auto) 3.18 K/uL Monocytes # (Auto) 0.68 K/uL Eosinophils # (Auto) 0.13 K/uL Basophils # (Auto) 0.02 K/uL RDW Standard Deviation 51.4 fL RDW Coefficient of Variation 16.0 % Immature Granulocyte % (Auto) 1.6 % Immature Granulocyte # (Auto) 0.19 K/uL Red Blood Cell Morphology Unremarkable Sodium Level 140 mmol/L Potassium Level 3.9 mmol/L Chloride Level 111 mmol/L Carbon Dioxide Level 23 mmol/L Anion Gap 6.0 mmol/L Blood Urea Nitrogen 17 mg/dl Creatinine 0.68 mg/dl Est Creatinine Clear Calc Drug Dose 122.9 ml/min Estimated GFR () 127.7 Estimated GFR (Non- 110.2 BUN/Creatinine Ratio 24.4 Random Glucose 105 mg/dl Calcium Level 8.5 mg/dl Phosphorus Level 3.8 mg/dl Magnesium Level 1.9 mg/dl Total Bilirubin 0.6 mg/dl Aspartate Amino Transf (AST/SGOT) 30 U/L Alanine Aminotransferase (ALT/SGPT) 25 U/L Alkaline Phosphatase 115 U/L Total Protein 6.8 gm/dl Albumin 3.8 gm/dl Globulin 3.0 gm/dl Albumin/Globulin Ratio 1.3
--- NOTE | 2017-09-02 14:38 | Progress Note ---
Internal Med Progress Note Date of Service: September 02, 2017. Provider Documentation: SUBJECTIVE: Patient is currently on mechanical ventilation. As per nurses, weaning trial attempted this AM but not successful. When medicine physician examined the patient she had some sedation medication withheld and able to open eyes and track toward medical doctor. Able to follow commands and give hand air conditioning supervisor OBJECTIVE: Exam: General - has been able to follow some commands Lungs - on mechanical ventilation Heart- normal rate Abdomen- soft, positive bowel sounds Extremities- no lower extremity edema, has arterial line for blood pressure monitoring ASSESSMENT & PLAN: This is a 37 year old female h/o HTN, T2DM, CAD, SC and suspected drug abuse presents with acute respiratory failure, abscess of the right wrist and sepsis. Blood cultures positive for yeast. Patient is being treated for sepsis secondary to fungemia vs pulmonary vs skin source. As per ICU notes between 08/30/17 and 08/31/17: Patient underwent endotracheal intubation with fiberoptic bronchoscopy in the setting of worsening labored breathing and progressive signs and symptoms of ARDS. Relatively unremarkable bronchoscopy reported. Sepsis from skin source vs lung source (pneumonia) vs fungemia vs other unknown etiology -started on multiple antibiotics for broad spectrum coverage -was also on Acyclovir -but blood culture from 08/29/17 grew yeast, and started on caspofungin and with yeast identified the antibiotics narrowed to IV Vancomycin an IV Primaxin as per infectious disease consultation discussions -TTE performed on 08/31/17 without finding of endocarditis -BAL on 08/31/17 with results showing no acid fast, no -ophthalmology consult on 09/01/17 did not find evidence of fungal involvement in the eyes -urine screen was done to identify whether patient had risks of IV drug use, Urine toxicology negative, repeated toxicology screen to be sent -preliminary hepatitis C antibody positive, Hepatitis IgM antibody non reactive , Hepatitis B core IgM antibody non-reactive, HIV negative -Antistreptolysin is flagged positive but as per infectious disease the level in not clinically significant for streptococci exposure -fungal smear blood culture 09/01/17 pending, no yeast or fungal isolated -vancomycin and imipenem discontinued on 09/02/17 and only on caspofungin Autoimmune workup -Autoimmune work up includes CHRISTIAN, GBM antibodies--pending. Rheumatoid factor is normal Respiratory (pneumonia vs fungemia vs ARDS) -is intubated on mechanical ventilation -pulmonary consult has evaluated mechanical ventilation requirements, continue methylprednisolone at 80 mg/daily total -nebulizers as needed Cardiovascular: PMH of HTN, T2DM, CAD and SC with stents -on this admission patient had tachycardia due to sepsis -HTN and concern for overload--concentrated IV medications and started Albumin 50mg 3 x day -Continue home meds; Plavix, Lipitor, lisinopril, ASA -Metoprolol IV 2.5 mg q 6h as scheduled, and additional prn if heart rate above 110 bpm Diabetes Type 2, HbA1C is 9.7 pharmacy glycemic consult for diabetes management, on insulin Nutrition: Tube feeds AJIT - resolved with IV fluids, continue to monitor renal function : [place] intact Anemia -Hgb 8.9 today DVT PROPHYLAXIS: Lovenox 40 mg daily Procedures: Endotracheal intubation 08/30/2017 Axillary arterial line 08/30/2017 Fiberoptic bronchoscopy 08/30/2017 Transesophageal echocardiogram 08/31/2017 Full Code Status Patient's Health Care Agent: Susan Ramesh [phone] Vital Signs: Date Time Temp Pulse Resp B/P (MAP) Pulse Ox O2 Delivery O2 Flow Rate FiO2 09/02/17 14:01 37.6 71 31 177/75 (109) 96 09/02/17 13:26 30 09/02/17 12:46 37.4 66 31 131/80 (97) 94 09/02/17 12:04 74 149/78 09/02/17 12:00 93 Mechanical Ventilator 30 09/02/17 12:00 30 09/02/17 12:00 37.3 73 25 160/80 (106) 95 09/02/17 11:14 30 09/02/17 11:01 37.1 71 31 168/76 (106) 94 09/02/17 09:01 37.2 69 30 176/87 (116) 97 09/02/17 09:00 37.1 80 22 174/78 (110) 100 Mechanical Ventilator 09/02/17 08:00 Mechanical Ventilator 40 09/02/17 08:00 40 09/02/17 08:00 37.0 80 35 143/92 (109) 93 Mechanical Ventilator 09/02/17 08:00 Mechanical Ventilator 40 09/02/17 07:47 40 09/02/17 06:03 72 30 139/84 (92) 95 161/75 09/02/17 06:01 37.1 Mechanical Ventilator 09/02/17 05:54 78 158/74 09/02/17 05:32 112 41 09/02/17 05:10 28 09/02/17 05:00 30 09/02/17 05:00 72 35 148/89 (107) 97 172/80 09/02/17 04:02 37.2 Mechanical Ventilator 09/02/17 04:02 71 31 152/85 (92) 98 168/80 09/02/17 04:00 Mechanical Ventilator 30 09/02/17 04:00 30 09/02/17 03:01 77 35 150/83 (113) 98 167/78 09/02/17 02:26 30 09/02/17 02:00 80 34 151/88 (97) 98 168/79 09/02/17 02:00 37.6 Mechanical Ventilator 09/02/17 01:00 78 32 145/83 (91) 99 163/78 09/02/17 00:00 85 36 129/83 (94) 92 162/78 (115) 09/02/17 00:00 30 09/02/17 00:00 Mechanical Ventilator 30 09/02/17 00:00 37.1 Mechanical Ventilator 30 09/01/17 23:50 73 142/74 09/01/17 23:23 30 09/01/17 23:00 64 27 142/74 (82) 98 166/73 09/01/17 22:40 68 26 163/79 (114) 98 162/74 09/01/17 22:04 36.8 Mechanical Ventilator 30 09/01/17 22:04 72 37 153/87 (97) 98 176/81 09/01/17 21:00 75 34 153/71 (96) 97 172/70 09/01/17 20:06 30 09/01/17 20:00 96 Mechanical Ventilator 30 09/01/17 20:00 30 09/01/17 20:00 81 31 135/78 (109) 96 153/76 09/01/17 20:00 37.7 75 31 135/78 (97) 97 Mechanical Ventilator 30 09/01/17 19:00 84 38 164/93 (108) 98 164/84 09/01/17 18:00 78 35 163/106 (125) 99 Mechanical Ventilator 30 09/01/17 17:50 79 181/92 09/01/17 17:22 30 09/01/17 17:00 83 35 175/97 (123) 98 Mechanical Ventilator 30 09/01/17 16:00 37.2 85 35 175/104 (127) 96 Mechanical Ventilator 30 09/01/17 16:00 35 09/01/17 16:00 Mechanical Ventilator 09/01/17 15:19 30 09/01/17 15:00 82 30 142/90 (107) 95 Mechanical Ventilator 30 Lab Results: Results Past 24 Hours Test 09/01/17 15:18 09/01/17 15:46 09/01/17 19:46 09/01/17 20:45 Range/Units Bedside Glucose 105 167 174 70-90 mg/dl Test 09/01/17 21:01 09/01/17 23:47 09/02/17 03:44 09/02/17 03:58 Range/Units White Blood Count 11.44 11.78 4.8-10.8 K/uL Red Blood Count 3.36 3.14 4.2-5.4 M/uL Hemoglobin 9.5 8.9 12.0-16.0 g/dL Hematocrit 29.4 27.5 37-47 % Mean Corpuscular Volume 87.5 87.6 80-100 fL Mean Corpuscular Hemoglobin 28.3 28.3 25-34 pg Mean Corpuscular Hemoglobin Concent 32.3 32.4 32-36 g/dl RDW Standard Deviation 51.9 51.4 36.4-46.3 fL RDW Coefficient of Variation 16.0 16.0 11.5-14.5 % Platelet Count 194 192 130-400 K/uL Mean Platelet Volume 9.3 10.0 7.4-10.4 fL Sodium Level 139 140 136-145 mmol/L Potassium Level 4.1 3.9 3.5-5.1 mmol/L Chloride Level 107 111 98-107 mmol/L Carbon Dioxide Level 23 23 21-32 mmol/L Anion Gap 9.0 6.0 3-11 mmol/L Blood Urea Nitrogen 16 17 7-18 mg/dl Creatinine 0.68 0.68 0.60-1.20 mg/dl Est Creatinine Clear Calc Drug Dose 122.9 122.9 ml/min Estimated GFR () 127.7 127.7 Estimated GFR (Non- 110.2 110.2 BUN/Creatinine Ratio 22.8 24.4 10-20 Random Glucose 174 105 70-99 mg/dl Calcium Level 8.5 8.5 8.5-10.1 mg/dl Phosphorus Level 4.4 3.8 2.5-4.9 mg/dl Magnesium Level 1.8 1.9 1.8-2.4 mg/dl Bedside Glucose 152 108 70-90 mg/dl Neutrophils (%) (Auto) 64.3 % Lymphocytes (%) (Auto) 27.0 % Monocytes (%) (Auto) 5.8 % Eosinophils (%) (Auto) 1.1 % Basophils (%) (Auto) 0.2 % Neutrophils # (Auto) 7.58 1.4-6.5 K/uL Lymphocytes # (Auto) 3.18 1.2-3.4 K/uL Monocytes # (Auto) 0.68 0.11-0.59 K/uL Eosinophils # (Auto) 0.13 0-0.5 K/uL Basophils # (Auto) 0.02 0-0.2 K/uL Immature Granulocyte % (Auto) 1.6 % Immature Granulocyte # (Auto) 0.19 0.00-0.02 K/uL Red Blood Cell Morphology Unremarkable Total Bilirubin 0.6 0.2-1 mg/dl Aspartate Amino Transf (AST/SGOT) 30 15-37 U/L Alanine Aminotransferase (ALT/SGPT) 25 12-78 U/L Alkaline Phosphatase 115 45-117 U/L Total Protein 6.8 6.4-8.2 gm/dl Albumin 3.8 3.4-5.0 gm/dl Globulin 3.0 2.5-4.0 gm/dl Albumin/Globulin Ratio 1.3 0.9-2 Test 09/02/17 05:43 Range/Units Blood Gas Specimen Type ARTERIAL Blood Gas Sample Site Art Line Blood Gas Patient Temperature 37.6 Bedside Blood Gas pH (LAB) 7.42 7.35-7.45 Bedside Blood Gas pCO2 (LAB) 37 35-46 mmHg Bedside Blood Gas pO2 (LAB) 421 80-95 mmHg Bedside Blood Gas HCO3 (LAB) 24 19-24 meq/L Bedside Blood Gas Total CO2 25 24-31 mEq/l Bedside Blood Gas Base Excess (LAB) 0.0 -9-1.8 meq/L Bedside Blood Gas O2 Saturation 100.0 90-95 % Oxygen Saturation (Pulse Oximetry) 100 % Caesar Test NOT PERFORMED Oxygen Delivery Device Ventilator Bedside Oxygen Rate (breaths/min) 20 Blood Gas Minute Ventilation 15 Blood Gas Tidal Volume 400 Blood Gas PEEP 10 Microbiology Results 09/02/17 Blood Culture, Received Pending 09/02/17 Blood Culture, Received Pending 09/01/17 Cryptococcal Antigen - Final, Complete NO CRYPTOCOCCAL ANTIGEN DETECTED
[2017-09-02] MEDS ORDERED: NURSING VERBAL MED ORDER ONE (17:45)
[2017-09-02 18:38] LABS: ANA SCREEN TC 249X NEGATIVE (NEGATIVE)
[2017-09-02] MEDS: DexMEDEtomidine HCL IV 200 MCG in SODIUM CHLORIDE 0.9% 50ML 48 ML IV PRN (20:05)
[2017-09-02] MEDS: ENOXAPARIN 40 MG/0.4 ML SYR SQ SCH (21:36)
--- NOTE | 2017-09-02 21:54 | DIAGNOSTIC IMAGING REPORT ---
VENOUS DOPPLER LWR EXT BILA HISTORY: Pain. Edema. r/o dvt COMPARISON STUDY: None. FINDINGS: There is normal compressibility, flow, and augmentation within the bilateral lower extremity deep venous systems. IMPRESSION: No DVT within the right or left lower extremity. The above report was generated using voice recognition software. It may contain grammatical, syntax or spelling errors. Electronically signed by: Dale Art M.D. 09/02/2017 9:53 PM Dictated Date/Time: 09/02/2017 9:53 PM
[2017-09-03] VITALS (27 sets, daily range): BP systolic 132–185; BP diastolic 66–92; PULSE 61–79; TEMP 37–37.6; O2SAT 93–100; Ht 162.6 cm; Wt 85.7 kg
[2017-09-03] MEDS: INSULIN ASPART 100 UNITS/ML 3 ML PEN SC SCH ×7 (00:38→23:38)
[2017-09-03] MEDS: METOPROLOL TARTRATE 1 MG/ML VIAL IV. SCH ×2 (01:23→05:54)
[2017-09-03] MEDS: ALBUMIN HUMAN 25% 12.5 GM/50 ML VIAL IV SCH (02:40)
[2017-09-03] MEDS: PEPTAMEN INTENSE VHP 1000ML BAG OG SCH (03:18)
[2017-09-03] MEDS: IPRATROPIUM BROMIDE HFA INHALER INH SCH ×2 (03:40→07:36)
[2017-09-03] MEDS: LEValbuterol HFA 15GM INHALER INH SCH ×2 (03:40→07:36)
[2017-09-03] MEDS: DexMEDEtomidine HCL IV 200 MCG in SODIUM CHLORIDE 0.9% 50ML 48 ML IV PRN ×2 (03:52→08:24)
[2017-09-03] MEDS: METHYLPREDNISOLONE IV 40 MG in SYRINGE 0 ML IV SCH (04:06)
[2017-09-03 04:26] LABS: BASO % 0.1 %; BASO ABS # 0.01 K/uL (0-0.2); EOS % 0.8 %; EOS ABS # 0.09 K/uL (0-0.5); HEMOGLOBIN 8.8 g/dL (12.0-16.0); IG# 0.31 K/uL (0.00-0.02); LYMPH % 26.3 %; LYMPH ABS # 3.04 K/uL (1.2-3.4); MEAN CELL VOLUME 87.7 fL (80-100); MEAN CORPUSCULAR HEMOGLOBIN 28.6 pg (25-34); MEAN CORPUSCULAR HGB CONC 32.6 g/dl (32-36); MEAN PLATELET VOLUME 9.7 fL (7.4-10.4); MONO % 6.5 %; MONO ABS # 0.75 K/uL (0.11-0.59); NEUT % 63.6 %; NEUT ABS # 7.37 K/uL (1.4-6.5); PLATELET COUNT 191 K/uL (130-400); RED CELL DISTRIBUTION WIDTH CV 15.4 % (11.5-14.5); RED CELL DISTRIBUTION WIDTH SD 49.9 fL (36.4-46.3); WHITE BLOOD COUNT 11.57 K/uL (4.8-10.8)
[2017-09-03 04:48] LABS: ALBUMIN 4.8 gm/dl (3.4-5.0); CALCIUM 9.1 mg/dl (8.5-10.1); CREATININE 0.66 mg/dl (0.60-1.20); POTASSIUM 3.7 mmol/L (3.5-5.1)
[2017-09-03 04:51] LABS: PHOSPHORUS 3.5 mg/dl (2.5-4.9); TOTAL PROTEIN 7.6 gm/dl (6.4-8.2)
[2017-09-03] MEDS: MAGNESIUM OXIDE 400 MG TAB PO SCH ×3 (05:53→13:59)
--- NOTE | 2017-09-03 06:57 | DIAGNOSTIC IMAGING REPORT ---
CHEST ONE VIEW PORTABLE HISTORY: 37 years-old Female intubation ARDS acute respiratory failure. COMPARISON: Chest radiograph 09/02/2017 TECHNIQUE: Portable AP view of the chest FINDINGS: Cardiomediastinal and hilar silhouettes are within normal limits. Endotracheal tube overlies the midline terminating proximally 3.6 cm superior to the level of the misti. Enteric tube courses below the diaphragm outside the [id number]. No pneumothorax or definite pleural effusion. Multifocal multisegmental distribution of bilateral alveolar opacities are redemonstrated which appear slightly improved from comparison. Bones of the chest are grossly intact. IMPRESSION: 1. Satisfactory positioning of life support apparatus. 2. Mildly improved aeration of the bilateral lungs with persistent multifocal multisegmental distribution of alveolar opacities suggesting persistent noncardiogenic pulmonary edema or pneumonia. The above report was generated using voice recognition software. It may contain grammatical, syntax or spelling errors. Electronically signed by: Isidro Eli M.D. 09/03/2017 6:55 AM Dictated Date/Time: 09/03/2017 6:53 AM
[2017-09-03] MEDS: ATORVASTATIN 40 MG TAB NG SCH (07:34)
[2017-09-03] MEDS: ASPIRIN 81 MG CHEW NG SCH (07:35)
[2017-09-03] MEDS: GABAPENTIN 600 MG TAB PO SCH ×3 (07:35→20:17)
[2017-09-03] MEDS: LISINOPRIL 10 MG TAB PO SCH (07:35)
[2017-09-03] MEDS: CLOPIDOGREL BISULFATE 75 MG TAB PO SCH (07:35)
[2017-09-03] MEDS: PANTOprazole INJ 40 MG in SYRINGE 0 ML IV SCH (07:38)
[2017-09-03] MEDS: INSULIN GLARGINE SOLOSTAR 100 UNITS/ML 3 ML PEN SC SCH ×2 (07:47→21:46)
--- NOTE | 2017-09-03 09:17 | Progress Note ---
Medicine Progress Note Date & Time of Visit: September 03, 2017 at 08:50 . Subjective Remains intubated on ventilator. More alert. Denies significant cough, pain, nausea, vomiting. . Objective Last 8 Hrs Date Time Temp Pulse Resp B/P (MAP) Pulse Ox O2 Delivery O2 Flow Rate FiO2 09/03/17 09:01 37.5 77 14 185/85 (118) 99 Mechanical Ventilator 09/03/17 08:00 97 Mechanical Ventilator 30 09/03/17 08:00 37.4 79 19 161/86 (111) 98 Mechanical Ventilator 09/03/17 08:00 30 09/03/17 07:36 30 09/03/17 06:01 37.3 67 33 144/77 (99) 95 Mechanical Ventilator 09/03/17 05:54 64 162/71 09/03/17 05:40 30 09/03/17 04:02 Mechanical Ventilator 30 09/03/17 04:02 30 09/03/17 04:02 37.6 71 26 152/73 (99) 96 Mechanical Ventilator 09/03/17 03:40 30 09/03/17 02:43 30 09/03/17 02:06 37.5 68 31 132/66 (88) 96 Mechanical Ventilator 157/77 (103) 09/03/17 01:23 71 167/60 Physical Exam: General- lying in bed, somewhat anxious, no acute distress ENT- oral ET tube; oral gastric tube Lungs- few scattered rhonchi, otherwise clear to auscultation; no respiratory distress Cardiovascular- RRR; no murmur or gallop appreciated; no JVD; trace pretibial edema Abdomen- + bowel sounds, soft, nontender Extremities- no cyanosis; no calf tenderness Neuro- alert, oriented, follows commands Skin- warm & dry . Laboratory Results: Last 24 Hours Test 09/02/17 11:54 09/02/17 16:34 09/02/17 20:08 09/03/17 00:34 Bedside Glucose 172 mg/dl 141 mg/dl 241 mg/dl 196 mg/dl Test 09/03/17 04:02 09/03/17 04:16 09/03/17 07:43 Bedside Glucose 159 mg/dl 272 mg/dl White Blood Count 11.57 K/uL Red Blood Count 3.08 M/uL Hemoglobin 8.8 g/dL Hematocrit 27.0 % Mean Corpuscular Volume 87.7 fL Mean Corpuscular Hemoglobin 28.6 pg Mean Corpuscular Hemoglobin Concent 32.6 g/dl Platelet Count 191 K/uL Mean Platelet Volume 9.7 fL Neutrophils (%) (Auto) 63.6 % Lymphocytes (%) (Auto) 26.3 % Monocytes (%) (Auto) 6.5 % Eosinophils (%) (Auto) 0.8 % Basophils (%) (Auto) 0.1 % Neutrophils # (Auto) 7.37 K/uL Lymphocytes # (Auto) 3.04 K/uL Monocytes # (Auto) 0.75 K/uL Eosinophils # (Auto) 0.09 K/uL Basophils # (Auto) 0.01 K/uL RDW Standard Deviation 49.9 fL RDW Coefficient of Variation 15.4 % Immature Granulocyte % (Auto) 2.7 % Immature Granulocyte # (Auto) 0.31 K/uL Stomatocytes 1+ Venous Blood pH 7.44 Venous Blood Partial Pressure CO2 34 mmHg Venous Blood Partial Pressure O2 80 mmHg Venous Blood HCO3 23 mmol/L Venous Blood Oxygen Saturation 94.1 % Venous Blood Base Excess -1.1 mEq/L Sodium Level 140 mmol/L Potassium Level 3.7 mmol/L Chloride Level 112 mmol/L Carbon Dioxide Level 23 mmol/L Anion Gap 5.0 mmol/L Blood Urea Nitrogen 22 mg/dl Creatinine 0.66 mg/dl Est Creatinine Clear Calc Drug Dose 125.1 ml/min Estimated GFR () 129.0 Estimated GFR (Non- 111.3 BUN/Creatinine Ratio 33.7 Random Glucose 149 mg/dl Calcium Level 9.1 mg/dl Phosphorus Level 3.5 mg/dl Magnesium Level 1.9 mg/dl Total Bilirubin 0.8 mg/dl Direct Bilirubin 0.3 mg/dl Aspartate Amino Transf (AST/SGOT) 17 U/L Alanine Aminotransferase (ALT/SGPT) 24 U/L Alkaline Phosphatase 106 U/L Total Protein 7.6 gm/dl Albumin 4.8 gm/dl Date/Time Source Procedure Growth Status 09/02/17 11:52 Blood Blood Culture Pending Received 09/02/17 11:51 Blood Blood Culture Pending Received Assessment & Plan SEVERE SEPSIS Met criteria for sepsis per Sepsis 1 definition and current CMS guidelines. Had abscess right wrist that was I&D'd. Serum lactate was 5.0. Mild hypotension with early systolic BPs in 90s and MAPs 67-76. Blood cultures obtained. Received fluid resuscitation and broad-spectrum antibiotics. 1 out of 2 blood cultures grew yeast, ID pending. ID consulted. Echo did not show any evidence of endocarditis. Chest x-ray showed bilateral infiltrates that have improved Influenza A/B PCR negative. Antimicrobial coverage narrowed to caspofungin for fungemia. Intermittent low-grade temps, but clinically improved. ACUTE HYPOXIC RESPIRATORY FAILURE Underlying asthma. Chest x-rays demonstrated bilateral infiltrates. Worsening oxygenation required intubation and mechanical ventilation. Influenza A/B PCR negative. Initially received broad-spectrum antibiotic coverage for pulmonary pathogens. Bronchoscopy performed 08/30/17-cultures negative. Antibacterial agents subsequently discontinued. Pulmonary status improved. Weaning/extubation per CCM. CORONARY ARTERY DISEASE Continue aspirin, metoprolol, statin. DM TYPE 2 Not well controlled. Hemoglobin A1c 9.7. Pharmacy consulted for glycemic management. Fingerstick blood sugars as high as 340. Blood sugar this morning 272. Management per protocol. Wean steroids as tolerated. ANEMIA Hemoglobin at time of admission was 12.3. Hemoglobin today = 8.8. Anemia probably multifactorial, secondary to infection, multiple phlebotomies, etc. Follow. + HEP C AB Hepatitis C viral load pending. VTE PROPHYLAXIS SQ enoxaparin. Ambulate as able. DISPOSITION To be determined. Family medicine follow-up with Dr. Iverson. . Current Inpatient Medications: Current Inpatient Medications Medications (Trade) Dose Ordered Sig/Bonny Route Start Time Stop Time Status Last Admin Dose Admin Acetaminophen (Tylenol Tab) 650 mg Q4H PRN PO 08/29/17 19:00 09/28/17 18:59 08/30/17 06:06 650 MG Al Hydrox/Mg Hydrox/Simethicone (Maalox Max Susp) 15 ml Q4H PRN PO 08/29/17 19:00 09/28/17 18:59 Magnesium Hydroxide (Milk Of Magnesia Susp) 30 ml Q12H PRN PO 08/29/17 19:00 09/28/17 18:59 Ondansetron HCl (Zofran Inj) 4 mg Q6H PRN IV 08/29/17 19:00 09/28/17 18:59 08/31/17 17:23 4 MG Glucose (Glucose 40% Gel) 15-30 GRAMS 15 GRAMS... UD PRN PO 08/29/17 21:00 6/2/18 20:59 Glucose (Glucose Chew Tab) 4-8 Tablets 4 Tabl... UD PRN PO 08/29/17 21:00 09/28/17 20:59 Dextrose (Dextrose 50% 50ML Syringe) 25-50ML 25ML FOR ... UD PRN IV 08/29/17 21:00 09/28/17 20:59 Glucagon (Glucagon Inj) 1 mg UD PRN IM 08/29/17 21:00 09/28/17 20:59 Carbohydrates (Carbohydrates For Hypoglycemia) 15-30 GRAMS 15 grams if BSG 54-69... UD PRN PO 08/29/17 21:00 09/28/17 20:59 Albuterol (Ventolin Hfa Inhaler) 2 puffs Q6H PRN INH 08/29/17 21:45 09/28/17 21:44 Clopidogrel Bisulfate (plAVix TAB) 75 mg QAM PO 08/30/17 09:00 09/29/17 08:59 09/03/17 07:35 75 MG Gabapentin (Neurontin Tab) 600 mg TID PO 08/30/17 09:00 09/29/17 08:59 09/03/17 07:35 600 MG Nitroglycerin (Nitrostat Tab) 0.4 mg UD PRN UT 08/29/17 21:45 09/28/17 21:44 Miscellaneous Information (Consult Glycemic Management Pharmacy) 1 ea UD PRN N/A 08/29/17 21:57 09/28/17 21:56 Levalbuterol (Xopenex 1.25MG/ 3ML Neb) 1.25 mg Q2H PRN INH 08/30/17 05:30 09/29/17 05:29 08/30/17 05:48 1.25 MG Enoxaparin Sodium (Lovenox Inj) 40 mg Q24H SQ 08/30/17 21:00 09/29/17 20:59 09/02/17 21:36 40 MG Ioversol (Optiray 320) 100 ml UD PRN IV 08/30/17 19:00 09/03/17 18:59 Levalbuterol (Xopenex Hfa Inhaler) 4 puffs Q4R INH 08/30/17 20:00 6/3/18 19:59 09/03/17 07:36 4 PUFFS Ipratropium [place] (Atrovent Hfa Inhaler) 4 puffs Q4R INH 08/30/17 20:00 09/29/17 19:59 09/03/17 07:36 4 PUFFS Pantoprazole Sodium 40 mg/ Syringe 10 ml @ 5 mls/min DAILY@11 IV 08/31/17 11:00 09/30/17 10:59 09/03/17 07:38 5 MLS/MIN Metoprolol Tartrate (Lopressor Iv) 5 mg Q6H PRN IV 08/31/17 08:30 09/30/17 08:29 08/31/17 13:55 5 MG Methylprednisolone Sodium Succinate 40 mg/Syringe 0.64 ml @ 1.5 mls/min Q12H IV 08/31/17 16:00 09/30/17 15:59 09/03/17 04:06 1.5 MLS/MIN Enteral Nutritional Formula (Peptamen Intense VHP) 1,000 ml UD OG 08/31/17 13:00 09/30/17 12:59 09/03/17 03:18 1,000 ML Insulin Aspart (novoLOG ASPART) SLIDING SCALE Q4 SC 09/01/17 12:00 10/01/17 11:59 09/03/17 07:46 13 UNITS Albumin Human (Albumin 25%) 50 gm Q8H IV 09/01/17 11:00 09/04/17 10:59 09/03/17 02:40 50 GM Caspofungin 50 mg/ Sodium Chloride 110 ml @ 250 mls/hr DAILY IV 09/02/17 09:00 09/08/17 08:59 09/02/17 08:27 250 MLS/HR Insulin Glargine (Lantus Solostar Pen) SEE PROTOCOL BID SC 09/01/17 21:00 10/01/17 20:59 09/03/17 07:47 50 UNITS Metoprolol Tartrate (Lopressor Iv) 2.5 mg Q6 IV. 09/01/17 18:00 10/01/17 17:59 09/03/17 05:54 2.5 MG Fentanyl Citrate (Fentanyl Inj) 50 mcg Q1H PRN IV 09/02/17 02:30 09/16/17 02:29 09/02/17 21:27 50 MCG Lisinopril (Zestril Tab) 10 mg DAILY PO 09/02/17 09:00 10/02/17 08:59 09/03/17 07:35 10 MG Aspirin (Aspirin Chew) 81 mg QAM NG 09/02/17 10:00 10/02/17 09:59 09/03/17 07:35 81 MG Atorvastatin Calcium (Lipitor Tab) 80 mg QAM NG 09/02/17 10:00 10/02/17 09:59 09/03/17 07:34 80 MG Dexmedetomidine HCl 200 mcg/ Sodium Chloride 50 ml @ 0 mls/hr Q0M PRN IV 09/02/17 20:00 09/06/17 19:27 09/03/17 08:24 15.3 MLS/HR Magnesium Oxide (Mag-Ox Tab) 400 mg Q4H PO 09/03/17 05:45 09/03/17 13:46 09/03/17 07:38 400 MG
[2017-09-03] MEDS: CASPOFUNGIN INJ 50 MG in SODIUM CHLORIDE 0.9% 100ML 100 ML IV SCH (10:11)
[2017-09-03] MEDS ORDERED: INSULIN HUMAN REGULAR PER UNIT 5 UNITS in SYRINGE 4.95 ML IV STA (10:23)
--- NOTE | 2017-09-03 10:28 | Critical Care Progress Note ---
Critical Care Progress Note Date of Service September 03, 2017. Attending Dr. Jaquez Subjective Patient is alert this morning with mechanical ventilation still in place. Will be extubated this am. The patient is able to respond to verbal commands. She denies pain with palpation of her abdomen and lower extremities. Objective GENERAL :Mild intermittent distress EYES: No icterus, gaze conjugate. PERRL NOSE: No evidence of epistaxis MOUTH: No lesions or candidiasis. Endotracheal tube and orogastric tube in place NECK: Supple. No stridor or appreciation of air leak LUNGS: Bilaterally crackles in the bases HEART: Regular. Normal sinus rhythm on telemetry with a rate in the 80s ABDOMEN: Soft, NT, ND, BS Present EXTREMITIES: No LE edema, pedal pulses intact. Teds/SCDs in place NEURO: alert--weaning mechanical ventilation Assessment & Plan Assessment: 37 yo female with a h/o HTN, T2DM, CAD, [place] and suspected drug abuse presents with acute respiratory failure, abscess of the right wrist and sepsis. Blood cultures positive for yeast. Patient is being treated for sepsis secondary to fungemia vs pulmonary vs skin source. Overall plan for the day: -Extubated this am, weaning O2 -Scaling back and finishing Precedex -Transitioning following meds to PO: steroids, narcotics, ppi, metoprolol -Dc'ing tube feeds, IVF Neuro - -Precedex-- Scale back and cont. until bag runs out -Patient responds to name and throughout the am, the patient was able to respond appropriately to simple commands -Transitioning from Fentanyl to Oxycodone IR, with the following wean; day 1-3: 15 mg q 6h---> 10mg q 6 hrs---> 5 mg q 6hrs -Starting Clonidine today for elevated BP and anxiety/withdraw symptoms. 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 Atrovent/Xopenex -Pulmonology following -CXR today--improved aeration, persistent bilateral opacities -Procalcitonin in the am -Transitioning to PO steroids--prednisone taper 40 mg, 30, 20, 10, 5---three day intervals -Negative autoimmune work up--CHRISTIAN, anti-GBM, RF GI - -Concern for aspiration--episode over the weekend -HOB>30 degrees -ppx--cont. ppi -Increased LFT's possibly 2/2 hep C (preliminarily positive) -LFT q 72 hrs -GI consultation in the outpatient for hep C treatment -Clear liquid diet--advance as tolerated RENAL/LYTES - -No significant electrolyte imbalance -Cr. 1.39 at admission, AJIT has since resolved - -[place] intact ENDO - -h/o Q5CD--jsjzpago Lantus and ss NovoLog -Diabetic education consult placed -A1C--9.7 HEM - -Hgb 8.8 today ID - -Fungemia--continue caspofungin -ID following -Hep c positive preliminarily -STEVEN no vegetations or abscess -CXR--persistent multifocal PNA LINES/IV ACCESS/FLUIDS - -PIVs intact. -follow I/O closely---negative global fluid balance -Dc albumin and IVF today DVT PROPHYLAXIS - -Enoxaparin 40mg SQ Thank you for allowing us to be part of this patient's care. Please refer to Dr. Jaquez's documentation for any further recommendations. Resident Physician Supervision Note: Dr. Lenin Hung was resident physician during care of patient. I separately evaluated patient and did history and exam. I discussed the case with the resident and generally agree with the findings and plan. Patient was successfully extubated this morning, patient did have significant narcotic requirement while on mechanical ventilation and sedation. The consideration of narcotic abuse has been raised, patient is hepatitis C positive , she has had superficial abscesses over areas commonly known for intravenous injection sites, there is a purported history of heavy narcotic use and drug- seeking behavior. Accordingly I have started every 6 hours empiric opiates at a decreased dose to taper over the next 48 hours and I have also started 0.1 mg of clonidine to hopefully ameliorate any aspects of narcotic withdrawal, this should also improve the patient's blood pressure as she does have a significant coronary artery disease history. There is been significant improvement in her acute respiratory distress syndrome. I have personally spent 40 minutes of critical care time in the direct management of this patient. This is a life/limb threatening event. This includes time spent evaluating patient, direct bedside care, chart review, placing orders, interpretation of diagnostic studies, discussion with consultants, patient, and/or family members regarding treatment decisions, as well as other required patient management activities. This time is exclusive of all separately billable procedures, and teaching time and separate from and in addition to any other critical care service time. Documented By: Enrique Jaquez DO Consults & Procedures Consultants: Dr. Jensen -pulmonary Dr. Main -infectious disease Dr. Gonzales -cardiology Dr. Enriquez -ophthalmology Procedures: Endotracheal intubation 08/30/2017 Axillary arterial line 08/30/2017 Fiberoptic bronchoscopy 08/30/2017 Transesophageal echocardiogram 08/31/2017 Data Medications: Current Inpatient Medications Medications (Trade) Dose Ordered Sig/Bonny Route Start Time Stop Time Status Last Admin Dose Admin Acetaminophen (Tylenol Tab) 650 mg Q4H PRN PO 08/29/17 19:00 09/28/17 18:59 08/30/17 06:06 650 MG Al Hydrox/Mg Hydrox/Simethicone (Maalox Max Susp) 15 ml Q4H PRN PO 08/29/17 19:00 09/28/17 18:59 Magnesium Hydroxide (Milk Of Magnesia Susp) 30 ml Q12H PRN PO 08/29/17 19:00 09/28/17 18:59 Ondansetron HCl (Zofran Inj) 4 mg Q6H PRN IV 08/29/17 19:00 09/28/17 18:59 08/31/17 17:23 4 MG Glucose (Glucose 40% Gel) 15-30 GRAMS 15 GRAMS... UD PRN PO 08/29/17 21:00 09/28/17 20:59 Glucose (Glucose Chew Tab) 4-8 Tablets 4 Tabl... UD PRN PO 08/29/17 21:00 09/28/17 20:59 Dextrose (Dextrose 50% 50ML Syringe) 25-50ML 25ML FOR ... UD PRN IV 08/29/17 21:00 09/28/17 20:59 Glucagon (Glucagon Inj) 1 mg UD PRN IM 08/29/17 21:00 09/28/17 20:59 Carbohydrates (Carbohydrates For Hypoglycemia) 15-30 GRAMS 15 grams if BSG 54-69... UD PRN PO 08/29/17 21:00 09/28/17 20:59 Albuterol (Ventolin Hfa Inhaler) 2 puffs Q6H PRN INH 08/29/17 21:45 09/28/17 21:44 Clopidogrel Bisulfate (plAVix TAB) 75 mg QAM PO 08/30/17 09:00 09/29/17 08:59 09/03/17 07:35 75 MG Gabapentin (Neurontin Tab) 600 mg TID PO 08/30/17 09:00 09/29/17 08:59 09/03/17 07:35 600 MG Nitroglycerin (Nitrostat Tab) 0.4 mg UD PRN UT 08/29/17 21:45 09/28/17 21:44 Miscellaneous Information (Consult Glycemic Management Pharmacy) 1 ea UD PRN N/A 08/29/17 21:57 09/28/17 21:56 Enoxaparin Sodium (Lovenox Inj) 40 mg Q24H SQ 08/30/17 21:00 09/29/17 20:59 09/02/17 21:36 40 MG Ioversol (Optiray 320) 100 ml UD PRN IV 08/30/17 19:00 09/03/17 18:59 Pantoprazole Sodium 40 mg/ Syringe 10 ml @ 5 mls/min DAILY@11 IV 08/31/17 11:00 09/30/17 10:59 09/03/17 07:38 5 MLS/MIN Metoprolol Tartrate (Lopressor Iv) 5 mg Q6H PRN IV 08/31/17 08:30 09/30/17 08:29 08/31/17 13:55 5 MG Methylprednisolone Sodium Succinate 40 mg/Syringe 0.64 ml @ 1.5 mls/min Q12H IV 08/31/17 16:00 09/30/17 15:59 09/03/17 04:06 1.5 MLS/MIN Insulin Aspart (novoLOG ASPART) SLIDING SCALE Q4 SC 09/01/17 12:00 10/01/17 11:59 09/03/17 07:46 13 UNITS Caspofungin 50 mg/ Sodium Chloride 110 ml @ 250 mls/hr DAILY IV 09/02/17 09:00 09/08/17 08:59 09/03/17 10:11 250 MLS/HR Insulin Glargine (Lantus Solostar Pen) SEE PROTOCOL BID SC 09/01/17 21:00 10/01/17 20:59 09/03/17 07:47 50 UNITS Fentanyl Citrate (Fentanyl Inj) 50 mcg Q1H PRN IV 09/02/17 02:30 09/16/17 02:29 09/02/17 21:27 50 MCG Lisinopril (Zestril Tab) 10 mg DAILY PO 09/02/17 09:00 10/02/17 08:59 09/03/17 07:35 10 MG Aspirin (Aspirin Chew) 81 mg QAM NG 09/02/17 10:00 10/02/17 09:59 09/03/17 07:35 81 MG Atorvastatin Calcium (Lipitor Tab) 80 mg QAM NG 09/02/17 10:00 10/02/17 09:59 09/03/17 07:34 80 MG Dexmedetomidine HCl 200 mcg/ Sodium Chloride 50 ml @ 0 mls/hr Q0M PRN IV 09/02/17 20:00 09/06/17 19:27 09/03/17 08:24 15.3 MLS/HR Magnesium Oxide (Mag-Ox Tab) 400 mg Q4H PO 09/03/17 05:45 09/03/17 13:46 09/03/17 07:38 400 MG Clonidine HCl (Catapres Tab) 0.1 mg Q6 PO 09/03/17 18:00 10/03/17 17:59 Oxycodone HCl (Roxicodone Immediate Rel Tab) 15 mg Q6 PO 09/03/17 12:00 09/04/17 06:01 Levalbuterol (Xopenex 1.25MG/ 3ML Neb) 1.25 mg Q4R PRN INH 09/03/17 10:15 10/03/17 10:14 Ipratropium [place] (Atrovent 0.02% 0.5MG/2.5ML Neb) 0.5 mg Q4R PRN INH 09/03/17 10:15 10/03/17 10:14 Metoprolol Succinate (Toprol Xl Tab) 25 mg QAM PO 09/03/17 12:00 10/03/17 11:59 I & O: -723 fluid balance since admission Vital Signs: Date Time Temp Pulse Resp B/P (MAP) Pulse Ox O2 Delivery O2 Flow Rate FiO2 09/03/17 09:01 37.5 77 14 185/85 (118) 99 Mechanical Ventilator 09/03/17 08:00 97 Mechanical Ventilator 30 09/03/17 08:00 37.4 79 19 161/86 (111) 98 Mechanical Ventilator 09/03/17 08:00 30 09/03/17 07:36 30 09/03/17 06:01 37.3 67 33 144/77 (99) 95 Mechanical Ventilator 09/03/17 05:54 64 162/71 09/03/17 05:40 30 09/03/17 04:02 Mechanical Ventilator 30 09/03/17 04:02 30 09/03/17 04:02 37.6 71 26 152/73 (99) 96 Mechanical Ventilator 09/03/17 03:40 30 09/03/17 02:43 30 09/03/17 02:06 37.5 68 31 132/66 (88) 96 Mechanical Ventilator 157/77 (103) 09/03/17 01:23 71 167/60 09/03/17 00:02 30 09/03/17 00:02 Mechanical Ventilator 30 09/03/17 00:02 37.4 78 32 161/73 (102) 95 Mechanical Ventilator 30 09/02/17 22:36 30 09/02/17 22:09 67 32 157/85 (109) 95 Mechanical Ventilator 161/70 (100) 09/02/17 20:53 30 09/02/17 20:48 30 09/02/17 20:00 30 09/02/17 20:00 37.6 68 26 164/81 (108) 96 Mechanical Ventilator 30 09/02/17 20:00 Mechanical Ventilator 30 09/02/17 18:00 37.5 68 31 165/70 (101) 95 09/02/17 17:00 37.7 70 29 148/93 (111) 97 09/02/17 16:37 71 155/86 09/02/17 16:01 37.6 72 33 172/76 (108) 97 09/02/17 16:00 30 09/02/17 16:00 97 Mechanical Ventilator 30 09/02/17 15:37 30 09/02/17 14:01 37.6 71 31 177/75 (109) 96 09/02/17 13:26 30 09/02/17 12:46 37.4 66 31 131/80 (97) 94 09/02/17 12:04 74 149/78 09/02/17 12:00 93 Mechanical Ventilator 30 09/02/17 12:00 30 09/02/17 12:00 37.3 73 25 160/80 (106) 95 09/02/17 11:14 30 09/02/17 11:01 37.1 71 31 168/76 (106) 94 Laboratory Results: Last 24 Hours Test 09/02/17 11:54 09/02/17 16:34 09/02/17 20:08 09/03/17 00:34 Bedside Glucose 172 mg/dl 141 mg/dl 241 mg/dl 196 mg/dl Test 09/03/17 04:02 09/03/17 04:16 09/03/17 07:43 Bedside Glucose 159 mg/dl 272 mg/dl White Blood Count 11.57 K/uL Red Blood Count 3.08 M/uL Hemoglobin 8.8 g/dL Hematocrit 27.0 % Mean Corpuscular Volume 87.7 fL Mean Corpuscular Hemoglobin 28.6 pg Mean Corpuscular Hemoglobin Concent 32.6 g/dl Platelet Count 191 K/uL Mean Platelet Volume 9.7 fL Neutrophils (%) (Auto) 63.6 % Lymphocytes (%) (Auto) 26.3 % Monocytes (%) (Auto) 6.5 % Eosinophils (%) (Auto) 0.8 % Basophils (%) (Auto) 0.1 % Neutrophils # (Auto) 7.37 K/uL Lymphocytes # (Auto) 3.04 K/uL Monocytes # (Auto) 0.75 K/uL Eosinophils # (Auto) 0.09 K/uL Basophils # (Auto) 0.01 K/uL RDW Standard Deviation 49.9 fL RDW Coefficient of Variation 15.4 % Immature Granulocyte % (Auto) 2.7 % Immature Granulocyte # (Auto) 0.31 K/uL Stomatocytes 1+ Venous Blood pH 7.44 Venous Blood Partial Pressure CO2 34 mmHg Venous Blood Partial Pressure O2 80 mmHg Venous Blood HCO3 23 mmol/L Venous Blood Oxygen Saturation 94.1 % Venous Blood Base Excess -1.1 mEq/L Sodium Level 140 mmol/L Potassium Level 3.7 mmol/L Chloride Level 112 mmol/L Carbon Dioxide Level 23 mmol/L Anion Gap 5.0 mmol/L Blood Urea Nitrogen 22 mg/dl Creatinine 0.66 mg/dl Est Creatinine Clear Calc Drug Dose 125.1 ml/min Estimated GFR () 129.0 Estimated GFR (Non- 111.3 BUN/Creatinine Ratio 33.7 Random Glucose 149 mg/dl Calcium Level 9.1 mg/dl Phosphorus Level 3.5 mg/dl Magnesium Level 1.9 mg/dl Total Bilirubin 0.8 mg/dl Direct Bilirubin 0.3 mg/dl Aspartate Amino Transf (AST/SGOT) 17 U/L Alanine Aminotransferase (ALT/SGPT) 24 U/L Alkaline Phosphatase 106 U/L Total Protein 7.6 gm/dl Albumin 4.8 gm/dl
[2017-09-03] MEDS ORDERED: OXYCODONE HCL IR 5 MG TAB (IMMEDIATE RELEASE) PO PRN (10:45)
[2017-09-03] MEDS: LEVALBUTEROL 1.25MG/3ML NEB INH PRN ×2 (11:12→14:59)
[2017-09-03] MEDS: IPRATROPIUM BROMIDE NEB SOLN 0.02% 2.5 ML VIAL INH PRN ×2 (11:12→14:59)
[2017-09-03] MEDS: METOPROLOL SUCC 25MG EXT REL TAB PO SCH (12:12)
[2017-09-03] MEDS: OXYCODONE HCL IR 5 MG TAB (IMMEDIATE RELEASE) PO SCH ×3 (12:12→23:31)
[2017-09-03] MEDS ORDERED: INSULIN GLARGINE SOLOSTAR 100 UNITS/ML 3 ML PEN SC ONE (12:15)
--- NOTE | 2017-09-03 12:29 | Pharmacy Progress Note ---
Glycemic Control Progress Note Date of Service September 03, 2017. Scope Glycemic Pharmacist consulted for glycemic control to write orders per [facility] inpatient glycemic control protocol. Objective Accuchecks BSG (last 24hrs): Test 09/02/17 16:34 09/02/17 20:08 09/03/17 00:34 09/03/17 04:02 Bedside Glucose 141 mg/dl (70-90) 241 mg/dl (70-90) 196 mg/dl (70-90) 159 mg/dl (70-90) Test 09/03/17 04:16 09/03/17 07:43 Random Glucose 149 mg/dl (70-99) Bedside Glucose 272 mg/dl (70-90) HbA1c: Test 08/29/17 16:55 Hemoglobin A1c 9.7 % (4.5-5.6) H Recent Pertinent Medications The patient is currently receiving: * Basal insulin: Lantus BID based on BSG (received 40 units 5/7 AM, 50 units 5/ 7 PM, and 50 units 5/8 AM) * Correctional Insulin: Novolog Correction per scale q4h Goal Range: Low 120 mg/dL - High 150 mg/dL Correction Factor: 15 mg/dL/unit * Prandial insulin: Per carb ratio of 1 unit per 3 grams CHO consumed * Oral Agents: On hold Assessment & Plan ASSESSMENT: 09/02/17 * 37 yo F ventilated and in ICU with acute respiratory failure, sepsis 2nd fungemia and possible pneumonia and/or skin/skin structure infection 2nd abscess (s/p I&D) * Patient was on an insulin drip 08/29 to 09/01 which was running at high rates, ranging 3-12 units/hr * Transitioned to basal/bolus successfully yesterday with BSG's ranging 103-208 mg/dL in the last 24 hours * Assessment of stressors * Continues to require ventilation * Steroids continuing at current dose. * Antibiotics discontinued - now only on antifungal coverage * Per [employer], tubefeeds were resumed yesterday afternoon at 20 mL/hr. Increased to 40 mL/hr this AM. * OK to decrease goal range as patient should still receive CHO coverage for BSG 's less than 140 mg/dL and correctional insulin for BSG's above 150 mg/dL * Oral agent (metformin) to remain on hold 2nd critical illness 09/03/17 * BSG's ranging 141-272 mg/dL over the last 24 hours. * Of note, BSG immediately post administration of methylprednisolone are persistently the most elevated (208, 241, and 272 mg/dL) while other BSG's are less so (141, 172, 196 mg/dL) * Steroids tapering today - prednisone starting tonight at time methylprednisolone would have been due, then will be ongoing qAM. Ongoing taper planned by ~10 mg/day every 3 days. * Patient may benefit from switching from Lantus to NPH tomorrow 2nd desirable pharmacokinetic properties of NPH while on once daily insulin. * To try to decrease dose of Lantus tonight to ease transition (and also 2nd hyperglycemia this AM), will give additional dose of Lantus now * BSG to 272 mg/dL this AM - gave IV insulin x1 * Patient extubated this AM and passed swallow eval - Peptamen changing to clear liquid diet (T2DM per protocol). Unclear if this will improve glycemic control as patient will not be getting continuous glucose administration or if it could worsen control as patient is likely to increase CHO intake (was receiving only 12 g q4h via tubefeed) * Will tighten correction factor and CHO ratio 2nd persistently elevated BSG's * Will increase goal range to help prevent hypoglycemia due to more aggressive tightening of correction factor and carb ratio with possible increased CHO intake PLAN FOR INPATIENT GLYCEMIC CONTROL: * Oral Agents * Continue to hold outpatient oral diabetes medications. * Increase Basal insulin with additional 20 units x1 now then resume ongoing Lantus SQ BID based on BSG * 15 units for BSG less than 100 mg/dL (hold if tubefeeds less than or equal to 20 mL/hr) * 35 units for BSG 100-180 mg/dL * 50 units for BSG greater than 180 mg/dL * Bolus insulin * NovoLog per scale ACHS with 2 overnight checks * Increase Goal Range: Low 130 mg/dL - High 160 mg/dL * Tighten Correction Factor: 10 mg/dL/unit * Tighten Nutritional / Prandial insulin per carb ratio of 1 unit per 2.5 grams CHO consumed * Please note that the plan above was derived based on current level of insulin resistance and hospital stress. These recommendations are appropriate for inpatient admission only. Plan of care upon discharge will need to be reassessed to avoid potential outpatient hypo/hyperglycemia. Thank you.
--- NOTE | 2017-09-03 14:38 | Progress Note ---
Subjective Date of Service: September 03, 2017. Subjective repeat blood cultures pending, remains on caspo, tolerating well. extubated.tmax 37.6. bronch cultures remain negative. ID yeast pending. Problem List Medical Problems: (1) Abdominal pain Status: Acute (2) Abscess of left hand including fingers Status: Acute (3) Abscess of right forearm Status: Acute (4) Abscess of upper extremity Status: Acute (5) Abscess or cellulitis of scalp Status: Acute (6) Anemia Status: Acute (7) Asthma Status: Chronic (8) Benign hypertension Status: Chronic (9) Colitis Status: Acute (10) Diabetes mellitus Status: Chronic (11) Dyslipidemia Status: Chronic (12) Elevated lactic acid level Status: Acute (13) Ganglion cyst of tendon sheath of left hand Status: Acute (14) Hyperglycemia Status: Acute (15) Hypoxemia Status: Acute (16) Infectious colitis Status: Acute (17) Left groin pain Status: Acute (18) Low back pain Status: Acute (19) Non-STEMI (non-ST elevated myocardial infarction) Status: Acute (20) Right ankle pain Status: Acute (21) Right hand pain Status: Acute (22) Sepsis affecting skin Status: Acute Objective Vital Signs Date Time Temp Pulse Resp B/P (MAP) Pulse Ox O2 Delivery O2 Flow Rate FiO2 09/03/17 14:01 37.6 68 22 174/69 (104) 95 Room Air 09/03/17 13:56 37.5 64 17 147/75 (99) 95 Room Air 09/03/17 12:01 37.5 73 23 148/68 (94) 95 Room Air 09/03/17 11:45 37.4 76 18 166/71 (102) 96 Room Air 09/03/17 11:30 Room Air 09/03/17 11:30 37.5 73 27 159/73 (101) 93 09/03/17 11:15 37.6 67 21 164/76 (105) 100 09/03/17 11:13 66 30 97 Room Air 09/03/17 11:01 37.6 70 13 161/92 (115) 98 09/03/17 11:00 37.6 64 15 179/82 (114) 99 09/03/17 10:45 37.5 66 23 178/79 (112) 98 09/03/17 10:30 37.5 61 31 175/75 (108) 96 09/03/17 10:15 37.5 62 31 174/78 (110) 96 09/03/17 10:00 37.5 64 30 141/81 (101) 96 09/03/17 09:45 37.4 62 34 173/78 (109) 95 09/03/17 09:30 37.4 63 29 171/77 (108) 95 09/03/17 09:01 37.5 77 14 185/85 (118) 99 Mechanical Ventilator 09/03/17 08:00 97 Mechanical Ventilator 30 09/03/17 08:00 37.4 79 19 161/86 (111) 98 Mechanical Ventilator 09/03/17 08:00 30 09/03/17 07:36 30 09/03/17 06:01 37.3 67 33 144/77 (99) 95 Mechanical Ventilator 09/03/17 05:54 64 162/71 09/03/17 05:40 30 09/03/17 04:02 Mechanical Ventilator 30 09/03/17 04:02 30 09/03/17 04:02 37.6 71 26 152/73 (99) 96 Mechanical Ventilator 09/03/17 03:40 30 09/03/17 02:43 30 09/03/17 02:06 37.5 68 31 132/66 (88) 96 Mechanical Ventilator 157/77 (103) 09/03/17 01:23 71 167/60 09/03/17 00:02 30 09/03/17 00:02 Mechanical Ventilator 30 09/03/17 00:02 37.4 78 32 161/73 (102) 95 Mechanical Ventilator 30 09/02/17 22:36 30 09/02/17 22:09 67 32 157/85 (109) 95 Mechanical Ventilator 161/70 (100) 09/02/17 20:53 30 09/02/17 20:48 30 09/02/17 20:00 30 09/02/17 20:00 37.6 68 26 164/81 (108) 96 Mechanical Ventilator 30 09/02/17 20:00 Mechanical Ventilator 30 09/02/17 18:00 37.5 68 31 165/70 (101) 95 09/02/17 17:00 37.7 70 29 148/93 (111) 97 09/02/17 16:37 71 155/86 09/02/17 16:01 37.6 72 33 172/76 (108) 97 09/02/17 16:00 30 09/02/17 16:00 97 Mechanical Ventilator 30 09/02/17 15:37 30 Laboratory Results Item Value Date Time Blood Culture Received 09/02/17 1152 Blood Pending Blood Culture Received 09/02/17 1151 Blood Pending Blood Culture - Preliminary Resulted 08/29/17 1725 Blood YEAST Gram Stain - Final Complete 08/30/17 1830 Bronchial Washings Right Middle Lobe Last 24 Hours Test 09/02/17 16:34 09/02/17 20:08 09/03/17 00:34 09/03/17 04:02 Bedside Glucose 141 mg/dl 241 mg/dl 196 mg/dl 159 mg/dl Test 09/03/17 04:16 09/03/17 07:43 White Blood Count 11.57 K/uL Red Blood Count 3.08 M/uL Hemoglobin 8.8 g/dL Hematocrit 27.0 % Mean Corpuscular Volume 87.7 fL Mean Corpuscular Hemoglobin 28.6 pg Mean Corpuscular Hemoglobin Concent 32.6 g/dl Platelet Count 191 K/uL Mean Platelet Volume 9.7 fL Neutrophils (%) (Auto) 63.6 % Lymphocytes (%) (Auto) 26.3 % Monocytes (%) (Auto) 6.5 % Eosinophils (%) (Auto) 0.8 % Basophils (%) (Auto) 0.1 % Neutrophils # (Auto) 7.37 K/uL Lymphocytes # (Auto) 3.04 K/uL Monocytes # (Auto) 0.75 K/uL Eosinophils # (Auto) 0.09 K/uL Basophils # (Auto) 0.01 K/uL RDW Standard Deviation 49.9 fL RDW Coefficient of Variation 15.4 % Immature Granulocyte % (Auto) 2.7 % Immature Granulocyte # (Auto) 0.31 K/uL Stomatocytes 1+ Venous Blood pH 7.44 Venous Blood Partial Pressure CO2 34 mmHg Venous Blood Partial Pressure O2 80 mmHg Venous Blood HCO3 23 mmol/L Venous Blood Oxygen Saturation 94.1 % Venous Blood Base Excess -1.1 mEq/L Sodium Level 140 mmol/L Potassium Level 3.7 mmol/L Chloride Level 112 mmol/L Carbon Dioxide Level 23 mmol/L Anion Gap 5.0 mmol/L Blood Urea Nitrogen 22 mg/dl Creatinine 0.66 mg/dl Est Creatinine Clear Calc Drug Dose 125.1 ml/min Estimated GFR () 129.0 Estimated GFR (Non- 111.3 BUN/Creatinine Ratio 33.7 Random Glucose 149 mg/dl Calcium Level 9.1 mg/dl Phosphorus Level 3.5 mg/dl Magnesium Level 1.9 mg/dl Total Bilirubin 0.8 mg/dl Direct Bilirubin 0.3 mg/dl Aspartate Amino Transf (AST/SGOT) 17 U/L Alanine Aminotransferase (ALT/SGPT) 24 U/L Alkaline Phosphatase 106 U/L Total Protein 7.6 gm/dl Albumin 4.8 gm/dl Bedside Glucose 272 mg/dl Assessment and Plan (1) Fungemia Assessment & Plan: continue caspo for now, await final ID yeast, repeat blood cultures today. continue supportive care.
[2017-09-03 15:13] LABS: HERPES SIMPLEX VIRUS CULT NOT ISOLATED (NOT ISOLATED)
[2017-09-03] MEDS: CLONIDINE HCL 0.1 MG TAB PO SCH ×2 (16:31→23:30)
[2017-09-03] MEDS: ENOXAPARIN 40 MG/0.4 ML SYR SQ SCH (20:18)
[2017-09-04] VITALS (16 sets, daily range): BP systolic 130–164; BP diastolic 67–92; PULSE 60–78; TEMP 36.5–37.1; O2SAT 91–100
[2017-09-04] MEDS: INSULIN ASPART 100 UNITS/ML 3 ML PEN SC SCH ×5 (04:00→21:00)
[2017-09-04 04:40] LABS: BASO % 0.1 %; BASO ABS # 0.01 K/uL (0-0.2); EOS % 0.8 %; EOS ABS # 0.13 K/uL (0-0.5); HEMATOCRIT 29.8 % (37-47); HEMOGLOBIN 9.8 g/dL (12.0-16.0); IG# 0.59 K/uL (0.00-0.02); LYMPH % 21.5 %; LYMPH ABS # 3.51 K/uL (1.2-3.4); MEAN CELL VOLUME 87.4 fL (80-100); MEAN CORPUSCULAR HEMOGLOBIN 28.7 pg (25-34); MEAN CORPUSCULAR HGB CONC 32.9 g/dl (32-36); MEAN PLATELET VOLUME 9.8 fL (7.4-10.4); MONO % 6.2 %; MONO ABS # 1.01 K/uL (0.11-0.59); NEUT % 67.8 %; NEUT ABS # 11.04 K/uL (1.4-6.5); PLATELET COUNT 247 K/uL (130-400); RED CELL DISTRIBUTION WIDTH CV 15.2 % (11.5-14.5); RED CELL DISTRIBUTION WIDTH SD 48.1 fL (36.4-46.3); WHITE BLOOD COUNT 16.29 K/uL (4.8-10.8)
[2017-09-04 05:15] LABS: CALCIUM 8.8 mg/dl (8.5-10.1); CREATININE 0.63 mg/dl (0.60-1.20); PHOSPHORUS 4.6 mg/dl (2.5-4.9); POTASSIUM 3.4 mmol/L (3.5-5.1)
[2017-09-04] MEDS: CLONIDINE HCL 0.1 MG TAB PO SCH ×3 (06:00→21:44)
[2017-09-04] MEDS: POTASSIUM CHLORIDE 20 MEQ TABCR PO SCH ×3 (06:00→13:24)
[2017-09-04] MEDS: OXYCODONE HCL IR 5 MG TAB (IMMEDIATE RELEASE) PO SCH ×2 (06:01→21:46)
[2017-09-04] MEDS: GABAPENTIN 600 MG TAB PO SCH ×3 (09:24→21:45)
[2017-09-04] MEDS: ATORVASTATIN 40 MG TAB NG SCH (09:24)
[2017-09-04] MEDS: PANTOprazole SOD 40 MG TAB PO SCH (09:24)
[2017-09-04] MEDS: CLOPIDOGREL BISULFATE 75 MG TAB PO SCH (09:24)
[2017-09-04] MEDS: ASPIRIN 81 MG CHEW NG SCH (09:25)
[2017-09-04] MEDS: METOPROLOL SUCC 25MG EXT REL TAB PO SCH (09:25)
[2017-09-04] MEDS: LISINOPRIL 10 MG TAB PO SCH (09:26)
[2017-09-04] MEDS: CASPOFUNGIN INJ 50 MG in SODIUM CHLORIDE 0.9% 100ML 100 ML IV SCH (10:02)
--- NOTE | 2017-09-04 11:14 | Progress Note ---
Subjective Date of Service: September 04, 2017. Subjective oob to chair, extubated yesterday. remains on caspo, no fevers. tolerating meds. repeat blood cultures negative. tmax 37.6 yesterday afternoon. Problem List Medical Problems: (1) Abdominal pain Status: Acute (2) Abscess of left hand including fingers Status: Acute (3) Abscess of right forearm Status: Acute (4) Abscess of upper extremity Status: Acute (5) Abscess or cellulitis of scalp Status: Acute (6) Anemia Status: Acute (7) Asthma Status: Chronic (8) Benign hypertension Status: Chronic (9) Colitis Status: Acute (10) Diabetes mellitus Status: Chronic (11) Dyslipidemia Status: Chronic (12) Elevated lactic acid level Status: Acute (13) Ganglion cyst of tendon sheath of left hand Status: Acute (14) Hyperglycemia Status: Acute (15) Hypoxemia Status: Acute (16) Infectious colitis Status: Acute (17) Left groin pain Status: Acute (18) Low back pain Status: Acute (19) Non-STEMI (non-ST elevated myocardial infarction) Status: Acute (20) Right ankle pain Status: Acute (21) Right hand pain Status: Acute (22) Sepsis affecting skin Status: Acute Objective Vital Signs Date Time Temp Pulse Resp B/P (MAP) Pulse Ox O2 Delivery O2 Flow Rate FiO2 09/04/17 11:07 37.0 67 19 97 09/04/17 10:00 67 19 09/04/17 09:22 72 19 147/89 (108) 09/04/17 08:00 78 23 97 Room Air 09/04/17 08:00 Room Air 09/04/17 07:00 37.0 63 17 100 Room Air 09/04/17 06:00 71 13 156/82 (106) 100 Room Air 09/04/17 04:00 37.1 77 21 145/83 (103) 92 Room Air 09/04/17 04:00 92 Room Air 09/04/17 02:00 61 20 136/67 (90) 91 Room Air 09/04/17 00:01 36.8 60 23 130/67 (88) 96 Room Air 09/03/17 23:59 96 Room Air 09/03/17 22:00 74 26 157/84 (108) 98 Room Air 09/03/17 20:00 98 Room Air 5/8/18 20:00 37.0 70 18 150/78 (102) 98 Room Air 09/03/17 18:26 71 20 161/88 (112) 98 Room Air 09/03/17 16:00 37.6 71 20 157/84 (108) 97 Room Air 09/03/17 16:00 Room Air 09/03/17 15:00 68 20 99 09/03/17 14:01 37.6 68 22 174/69 (104) 95 Room Air 09/03/17 13:56 37.5 64 17 147/75 (99) 95 Room Air 09/03/17 12:01 37.5 73 23 148/68 (94) 95 Room Air 09/03/17 11:45 37.4 76 18 166/71 (102) 96 Room Air 09/03/17 11:30 Room Air 09/03/17 11:30 37.5 73 27 159/73 (101) 93 09/03/17 11:15 37.6 67 21 164/76 (105) 100 09/03/17 11:13 66 30 97 Room Air Physical Exam General Appearance: WD/WN Neck: supple Respiratory/Chest: no respiratory distress Skin: normal color Laboratory Results Item Value Date Time Blood Culture - Preliminary Resulted 09/02/17 1152 Blood NO GROWTH TO DATE. Blood Culture - Preliminary Resulted 09/02/17 1151 Blood NO GROWTH TO DATE. Blood Culture - Preliminary Resulted 08/29/17 1725 Blood YEAST Last 24 Hours Test 09/03/17 11:59 09/03/17 15:37 09/03/17 20:15 09/03/17 23:34 Bedside Glucose 207 mg/dl 114 mg/dl 182 mg/dl 165 mg/dl Test 09/04/17 04:07 09/04/17 04:29 Bedside Glucose 107 mg/dl White Blood Count 16.29 K/uL Red Blood Count 3.41 M/uL Hemoglobin 9.8 g/dL Hematocrit 29.8 % Mean Corpuscular Volume 87.4 fL Mean Corpuscular Hemoglobin 28.7 pg Mean Corpuscular Hemoglobin Concent 32.9 g/dl Platelet Count 247 K/uL Mean Platelet Volume 9.8 fL Neutrophils (%) (Auto) 67.8 % Lymphocytes (%) (Auto) 21.5 % Monocytes (%) (Auto) 6.2 % Eosinophils (%) (Auto) 0.8 % Basophils (%) (Auto) 0.1 % Neutrophils # (Auto) 11.04 K/uL Lymphocytes # (Auto) 3.51 K/uL Monocytes # (Auto) 1.01 K/uL Eosinophils # (Auto) 0.13 K/uL Basophils # (Auto) 0.01 K/uL RDW Standard Deviation 48.1 fL RDW Coefficient of Variation 15.2 % Immature Granulocyte % (Auto) 3.6 % Immature Granulocyte # (Auto) 0.59 K/uL Sodium Level 140 mmol/L Potassium Level 3.4 mmol/L Chloride Level 111 mmol/L Carbon Dioxide Level 24 mmol/L Anion Gap 5.0 mmol/L Blood Urea Nitrogen 19 mg/dl Creatinine 0.63 mg/dl Est Creatinine Clear Calc Drug Dose 129.2 ml/min Estimated GFR () 131.0 Estimated GFR (Non- 113.0 BUN/Creatinine Ratio 29.6 Random Glucose 90 mg/dl Calcium Level 8.8 mg/dl Phosphorus Level 4.6 mg/dl Magnesium Level 2.1 mg/dl Procalcitonin 0.73 ng/ml Assessment and Plan (1) Fungemia Assessment & Plan: continue caspo will need 14 days from first negative culture , repeat blood cultures remain negative. continue supportive care.
[2017-09-04] MEDS ORDERED: OXYCODONE HCL IR 5 MG TAB (IMMEDIATE RELEASE) PO SCH (12:00)
--- NOTE | 2017-09-04 12:27 | Pharmacy Progress Note ---
Glycemic Control Progress Note Date of Service September 04, 2017. Scope Glycemic Pharmacist consulted for glycemic control to write orders per [facility] inpatient glycemic control protocol. Objective Accuchecks BSG (last 24hrs): Test 09/03/17 15:37 09/03/17 20:15 09/03/17 23:34 09/04/17 04:07 Bedside Glucose 114 mg/dl (70-90) 182 mg/dl (70-90) 165 mg/dl (70-90) 107 mg/dl (70-90) Test 09/04/17 04:29 Random Glucose 90 mg/dl (70-99) HbA1c: Test 08/29/17 16:55 Hemoglobin A1c 9.7 % (4.5-5.6) H Recent Pertinent Medications The patient is currently receiving: * Basal insulin: Lantus BID based on BSG (total of 120 units administered on 09/03 ) * Correctional Insulin: Novolog Correction per scale q4h Goal Range: Low 130 mg/dL - High 160 mg/dL Correction Factor: 10 mg/dL/unit * Prandial insulin: Per carb ratio of 1 unit per 2.5 grams CHO consumed * Oral Agents: On hold Assessment & Plan ASSESSMENT: 09/03/17 * BSG's ranging 141-272 mg/dL over the last 24 hours. * Of note, BSG immediately post administration of methylprednisolone are persistently the most elevated (208, 241, and 272 mg/dL) while other BSG's are less so (141, 172, 196 mg/dL) * Steroids tapering today - prednisone starting tonight at time methylprednisolone would have been due, then will be ongoing qAM. Ongoing taper planned by ~10 mg/day every 3 days. * Patient may benefit from switching from Lantus to NPH tomorrow 2nd desirable pharmacokinetic properties of NPH while on once daily insulin. * To try to decrease dose of Lantus tonight to ease transition (and also 2nd hyperglycemia this AM), will give additional dose of Lantus now * BSG to 272 mg/dL this AM - gave IV insulin x1 * Patient extubated this AM and passed swallow eval - Peptamen changing to clear liquid diet (T2DM per protocol). Unclear if this will improve glycemic control as patient will not be getting continuous glucose administration or if it could worsen control as patient is likely to increase CHO intake (was receiving only 12 g q4h via tubefeed) * Will tighten correction factor and CHO ratio 2nd persistently elevated BSG's * Will increase goal range to help prevent hypoglycemia due to more aggressive tightening of correction factor and carb ratio with possible increased CHO intake 09/04 * BSG's ranging 93-182 mg/dL over the last 24 hours * Steroids continuing to taper - anticipate increased insulin sensitivity therefore will significantly loosen regimen despite adequate BSG control * Switching Lantus to NPH for better PK parameters while on once-daily prednisone. But will still utilize Lantus this evening if BSG's elevated (do not want NPH active overnight 2nd increased risk for hypoglycemia) * Loosened CHO count at breakfast - will continue to loosen more at dinner as breakfast to lunch BSG only increased 93 to 124 mg/dL (and concern for stacking at this time increasing risk for lower BSG obtained at dinner) PLAN FOR INPATIENT GLYCEMIC CONTROL: * Oral Agents * Continue to hold outpatient oral diabetes medications. * Decrease and switch Basal insulin to NPH - 30 units x1 now * Lantus 15 units SC x1 tonight for BSG greater than 180 mg/dL * Ongoing AM NPH anticipated - dose dependent on trend in BSG's today and overnight tonight * Bolus insulin * NovoLog per scale ACHS with 2 overnight checks * Increase Goal Range: Low 140 mg/dL - High 180 mg/dL * Loosen Correction Factor: 15 mg/dL/unit * Loosen Nutritional / Prandial insulin per carb ratio of 1 unit per 5 grams CHO consumed * Please note that the plan above was derived based on current level of insulin resistance and hospital stress. These recommendations are appropriate for inpatient admission only. Plan of care upon discharge will need to be reassessed to avoid potential outpatient hypo/hyperglycemia. Thank you.
[2017-09-04] MEDS ORDERED: INSULIN HUMAN NPH SC ONE ×2 (12:30)
--- NOTE | 2017-09-04 12:33 | Critical Care Progress Note ---
Critical Care Progress Note Date of Service September 04, 2017. ICU Day ICU Day Number: [address] Jaquez Subjective No chest pain no shortness of breath, patient had bowel movement yesterday 2 Objective General: Alert. nontoxic. Skin: Warm, dry, Head: Atraumatic Ears, nose, mouth and throat: airway patent Cardiovascular: Normal peripheral perfusion Respiratory: no respiratory distress Gastrointestinal: Non distended Musculoskeletal: No deformity Assessment & Plan Assessment: 37 yo female with a h/o HTN, T2DM, CAD, TX and suspected drug abuse presents with acute respiratory failure, abscess of the right wrist and sepsis. Blood cultures positive for yeast. Patient is being treated for sepsis secondary to fungemia vs pulmonary vs skin source. 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 Atrovent/Xopenex -Pulmonology following -Transitioning to PO steroids--prednisone taper 40 mg, 30, 20, 10, 5---three day intervals -Negative autoimmune work up--CHRISTIAN, anti-GBM, RF Tracheomalacia -Patient should have pulmonary follow-up GI - -Increased LFT's possibly 2/2 hep C (preliminarily positive) -LFT q 72 hrs -GI consultation in the outpatient for hep C treatment Tolerating full diet RENAL/LYTES - AJIT has since resolved - -[place] discontinued yesterday ENDO - -h/o P1PP--cbpzscho Lantus and ss NovoLog -Diabetic education consult placed -A1C--9.7 HEM - -Hgb 8.8 today ID - -Fungemia--continue caspofungin -ID following -Hep c positive preliminarily -STEVEN no vegetations or abscess LINES/IV ACCESS/FLUIDS - -PIVs intact. -follow I/O closely---negative global fluid balance -Dc albumin and IVF today DVT PROPHYLAXIS - -Enoxaparin 40mg SQ Stable for downgrade to a MedSurg, discussed with Dr. Jennings of the hospitalist service Documented By: Enrique Jaquez DO Consults & Procedures Consultants: Dr. Jensen -pulmonary Dr. Main -infectious disease Dr. Gonzales -cardiology Dr. Enriquez -ophthalmology Procedures: Endotracheal intubation 08/30/2017 Axillary arterial line 08/30/2017 Fiberoptic bronchoscopy 08/30/2017 Transesophageal echocardiogram 08/31/2017 Data Medications: Current Inpatient Medications Medications (Trade) Dose Ordered Sig/Bonny Route Start Time Stop Time Status Last Admin Dose Admin Acetaminophen (Tylenol Tab) 650 mg Q4H PRN PO 08/29/17 19:00 09/28/17 18:59 08/30/17 06:06 650 MG Al Hydrox/Mg Hydrox/Simethicone (Maalox Max Susp) 15 ml Q4H PRN PO 08/29/17 19:00 09/28/17 18:59 Magnesium Hydroxide (Milk Of Magnesia Susp) 30 ml Q12H PRN PO 08/29/17 19:00 09/28/17 18:59 Ondansetron HCl (Zofran Inj) 4 mg Q6H PRN IV 08/29/17 19:00 09/28/17 18:59 08/31/17 17:23 4 MG Glucose (Glucose 40% Gel) 15-30 GRAMS 15 GRAMS... UD PRN PO 08/29/17 21:00 09/28/17 20:59 Glucose (Glucose Chew Tab) 4-8 Tablets 4 Tabl... UD PRN PO 08/29/17 21:00 09/28/17 20:59 Dextrose (Dextrose 50% 50ML Syringe) 25-50ML 25ML FOR ... UD PRN IV 08/29/17 21:00 09/28/17 20:59 Glucagon (Glucagon Inj) 1 mg UD PRN IM 08/29/17 21:00 09/28/17 20:59 Carbohydrates (Carbohydrates For Hypoglycemia) 15-30 GRAMS 15 grams if BSG 54-69... UD PRN PO 5/3/18 21:00 09/28/17 20:59 Albuterol (Ventolin Hfa Inhaler) 2 puffs Q6H PRN INH 08/29/17 21:45 09/28/17 21:44 Clopidogrel Bisulfate (plAVix TAB) 75 mg QAM PO 08/30/17 09:00 09/29/17 08:59 09/04/17 09:24 75 MG Gabapentin (Neurontin Tab) 600 mg TID PO 08/30/17 09:00 09/29/17 08:59 09/04/17 09:24 600 MG Nitroglycerin (Nitrostat Tab) 0.4 mg UD PRN UT 08/29/17 21:45 09/28/17 21:44 Miscellaneous Information (Consult Glycemic Management Pharmacy) 1 ea UD PRN N/A 08/29/17 21:57 09/28/17 21:56 Enoxaparin Sodium (Lovenox Inj) 40 mg Q24H SQ 08/30/17 21:00 09/29/17 20:59 09/03/17 20:18 40 MG Metoprolol Tartrate (Lopressor Iv) 5 mg Q6H PRN IV 08/31/17 08:30 09/30/17 08:29 08/31/17 13:55 5 MG Caspofungin 50 mg/ Sodium Chloride 110 ml @ 250 mls/hr DAILY IV 09/02/17 09:00 09/13/17 23:59 09/04/17 10:02 250 MLS/HR Lisinopril (Zestril Tab) 10 mg DAILY PO 09/02/17 09:00 10/02/17 08:59 09/04/17 09:26 10 MG Atorvastatin Calcium (Lipitor Tab) 80 mg QAM NG 09/02/17 10:00 10/02/17 09:59 09/04/17 09:24 80 MG Clonidine HCl (Catapres Tab) 0.1 mg Q6 PO 09/03/17 18:00 10/03/17 17:59 09/04/17 11:53 0.1 MG Levalbuterol (Xopenex 1.25MG/ 3ML Neb) 1.25 mg Q4R PRN INH 09/03/17 10:15 10/03/17 10:14 09/03/17 14:59 1.25 MG Ipratropium [place] (Atrovent 0.02% 0.5MG/2.5ML Neb) 0.5 mg Q4R PRN INH 09/03/17 10:15 10/03/17 10:14 09/03/17 14:59 0.5 MG Metoprolol Succinate (Toprol Xl Tab) 25 mg QAM PO 09/03/17 12:00 10/03/17 11:59 09/04/17 09:25 25 MG Prednisone (PredniSONE TAB) 40 mg Taper QAM PO 09/04/17 09:00 09/18/17 08:59 09/04/17 09:25 40 MG Oxycodone HCl (Roxicodone Immediate Rel Tab) 10 mg Taper Q6H PO 09/04/17 12:00 09/06/17 11:59 09/04/17 11:53 10 MG Oxycodone HCl (Roxicodone Immediate Rel Tab) 5 mg Q6H PRN PO 09/03/17 10:45 09/17/17 10:44 Pantoprazole Sodium (Protonix Tab) 40 mg QAM PO 09/04/17 09:00 10/04/17 08:59 09/04/17 09:24 40 MG Insulin Aspart (novoLOG ASPART) SLIDING SCALE ACHS SC 09/03/17 11:00 10/03/17 10:59 09/04/17 11:50 3 UNITS Potassium Chloride (Klor-Con Tab) 20 meq Q4H PO 09/04/17 05:30 09/04/17 13:31 09/04/17 09:27 20 MEQ Insulin Aspart (novoLOG ASPART) SLIDING SCALE TODAY@0000,0400 SC 09/05/17 00:00 09/05/17 04:01 Aspirin (Ecotrin Tab) 81 mg QAM PO 09/05/17 09:00 10/05/17 08:59 Insulin Human NPH (novoLIN-N NPH) 30 units TODAY@1230 ONCE SC 09/04/17 12:30 09/04/17 12:31 Vital Signs: Date Time Temp Pulse Resp B/P (MAP) Pulse Ox O2 Delivery O2 Flow Rate FiO2 09/04/17 11:07 37.0 67 19 97 09/04/17 10:00 67 19 09/04/17 09:22 72 19 147/89 (108) 09/04/17 08:00 78 23 97 Room Air 09/04/17 08:00 Room Air 09/04/17 07:00 37.0 63 17 100 Room Air 09/04/17 06:00 71 13 156/82 (106) 100 Room Air 09/04/17 04:00 37.1 77 21 145/83 (103) 92 Room Air 09/04/17 04:00 92 Room Air 09/04/17 02:00 61 20 136/67 (90) 91 Room Air 09/04/17 00:01 36.8 60 23 130/67 (88) 96 Room Air 09/03/17 23:59 96 Room Air 09/03/17 22:00 74 26 157/84 (108) 98 Room Air 09/03/17 20:00 98 Room Air 09/03/17 20:00 37.0 70 18 150/78 (102) 98 Room Air 09/03/17 18:26 71 20 161/88 (112) 98 Room Air 09/03/17 16:00 37.6 71 20 157/84 (108) 97 Room Air 09/03/17 16:00 Room Air 09/03/17 15:00 68 20 99 09/03/17 14:01 37.6 68 22 174/69 (104) 95 Room Air 09/03/17 13:56 37.5 64 17 147/75 (99) 95 Room Air Laboratory Results: Last 24 Hours Test 09/03/17 15:37 09/03/17 20:15 09/03/17 23:34 09/04/17 04:07 Bedside Glucose 114 mg/dl 182 mg/dl 165 mg/dl 107 mg/dl Test 09/04/17 04:29 White Blood Count 16.29 K/uL Red Blood Count 3.41 M/uL Hemoglobin 9.8 g/dL Hematocrit 29.8 % Mean Corpuscular Volume 87.4 fL Mean Corpuscular Hemoglobin 28.7 pg Mean Corpuscular Hemoglobin Concent 32.9 g/dl Platelet Count 247 K/uL Mean Platelet Volume 9.8 fL Neutrophils (%) (Auto) 67.8 % Lymphocytes (%) (Auto) 21.5 % Monocytes (%) (Auto) 6.2 % Eosinophils (%) (Auto) 0.8 % Basophils (%) (Auto) 0.1 % Neutrophils # (Auto) 11.04 K/uL Lymphocytes # (Auto) 3.51 K/uL Monocytes # (Auto) 1.01 K/uL Eosinophils # (Auto) 0.13 K/uL Basophils # (Auto) 0.01 K/uL RDW Standard Deviation 48.1 fL RDW Coefficient of Variation 15.2 % Immature Granulocyte % (Auto) 3.6 % Immature Granulocyte # (Auto) 0.59 K/uL Sodium Level 140 mmol/L Potassium Level 3.4 mmol/L Chloride Level 111 mmol/L Carbon Dioxide Level 24 mmol/L Anion Gap 5.0 mmol/L Blood Urea Nitrogen 19 mg/dl Creatinine 0.63 mg/dl Est Creatinine Clear Calc Drug Dose 129.2 ml/min Estimated GFR () 131.0 Estimated GFR (Non- 113.0 BUN/Creatinine Ratio 29.6 Random Glucose 90 mg/dl Calcium Level 8.8 mg/dl Phosphorus Level 4.6 mg/dl Magnesium Level 2.1 mg/dl Procalcitonin 0.73 ng/ml
--- NOTE | 2017-09-04 14:14 | Surgery Consultation ---
Consultation Date of Consultation: September 04, 2017. Attending Physician: Christiano Jennings M.D. History of Present Illness This is a 37-year-old female with past medical history of poorly controlled diabetes, coronary artery disease status post PTCA, hypertension, dyslipidemia, asthma history of lower extremity DVT off anticoagulation Presented to ER with complaint of fever chills Patient noticed a small boil/abscess on her right wrist which has progressively got larger , denies of any trauma or insect bite Was seen at [facility]- ordered p.o. Bactrim she took 2 tablets did not had any improvement of the pain and swelling on right wrist Developed cough/ fever /chills/ headache I saw pt at ICU, I reviewed pt's H/P with pt. now mpt is recovering from sepsis , pt as abscess on right arm for 3 months, now the abscess is redness, tenderness, Past Medical/Surgical History Medical Problems: (1) Abdominal pain Status: Acute (2) Abscess of left hand including fingers Status: Acute (3) Abscess of right forearm Status: Acute (4) Abscess of upper extremity Status: Acute (5) Abscess or cellulitis of scalp Status: Acute (6) Anemia Status: Acute (7) Asthma Status: Chronic (8) Benign hypertension Status: Chronic (9) Colitis Status: Acute (10) Diabetes mellitus Status: Chronic (11) Dyslipidemia Status: Chronic (12) Elevated lactic acid level Status: Acute (13) Ganglion cyst of tendon sheath of left hand Status: Acute (14) Hyperglycemia Status: Acute (15) Hypoxemia Status: Acute (16) Infectious colitis Status: Acute (17) Left groin pain Status: Acute (18) Low back pain Status: Acute (19) Non-STEMI (non-ST elevated myocardial infarction) Status: Acute (20) Right ankle pain Status: Acute (21) Right hand pain Status: Acute (22) Sepsis affecting skin Status: Acute Family History Diabetes mellitus FH: gallbladder disease FH: heart disease FH: lung disease Hypertension Kidney stones Social History Smoking Status: Current Every Day Smoker Smokeless Tobacco Use: No Alcohol Use: none Drug Use: none Marital Status: single Housing Status: lives with family Occupation Status: unemployed Allergies Coded Allergies: Lidocaine (Verified Allergy, Intermediate, HIVES, 08/29/17) Procaine (Verified Allergy, Intermediate, HIVES, 08/29/17) Penicillins (Verified Allergy, Mild, HAD NO PROBLEM WITH ZOSYN, 08/29/17) [place] (Verified Allergy, Mild, HIVES, 08/29/17) Cephalexin (Verified Adverse Reaction, Intermediate, YEAST INFECTIONS, 09/02) Egg (Verified Adverse Reaction, Intermediate, GI UPSET, 09/02/17) Azithromycin (Verified Adverse Reaction, Mild, STOMACH PAINS, 08/29/17) Tramadol (Verified Adverse Reaction, Unknown, SEIZURES, 09/02/17) Home Medications Scheduled Acetaminophen (Tylenol), 1,000 MG PO prn ud Aspirin (Aspirin Ec), 81 MG PO DAILY Atorvastatin (Lipitor), 80 MG PO HS Clopidogrel (Plavix), 75 MG PO QAM Cranberry (Vaccinium Macrocarp (Cranberry), 1 TAB PO UD Esomeprazole Magnesium (Nexium), 40 MG PO BID Gabapentin (Neurontin), 600 MG PO TID Lisinopril (Zestril), 10 MG PO DAILY Metformin Hcl (Glucophage Ext Rel), 1,000 MG PO BID Metoprolol Succ (Toprol Xl) (Toprol-Xl), 25 MG PO QAM Nitroglycerin (Nitrostat), 0.4 MG UT PRN Scheduled PRN Albuterol Hfa (Ventolin Hfa), 2 PUFFS INH Q6H PRN for SOB/Wheezing Current Inpatient Medications Current Inpatient Medications Medications (Trade) Dose Ordered Sig/Bonny Route Start Time Stop Time Status Last Admin Dose Admin Acetaminophen (Tylenol Tab) 650 mg Q4H PRN PO 08/29/17 19:00 09/28/17 18:59 08/30/17 06:06 650 MG Al Hydrox/Mg Hydrox/Simethicone (Maalox Max Susp) 15 ml Q4H PRN PO 08/29/17 19:00 09/28/17 18:59 Magnesium Hydroxide (Milk Of Magnesia Susp) 30 ml Q12H PRN PO 08/29/17 19:00 09/28/17 18:59 Ondansetron HCl (Zofran Inj) 4 mg Q6H PRN IV 08/29/17 19:00 09/28/17 18:59 08/31/17 17:23 4 MG Glucose (Glucose 40% Gel) 15-30 GRAMS 15 GRAMS... UD PRN PO 08/29/17 21:00 09/28/17 20:59 Glucose (Glucose Chew Tab) 4-8 Tablets 4 Tabl... UD PRN PO 08/29/17 21:00 09/28/17 20:59 Dextrose (Dextrose 50% 50ML Syringe) 25-50ML 25ML FOR ... UD PRN IV 08/29/17 21:00 09/28/17 20:59 Glucagon (Glucagon Inj) 1 mg UD PRN IM 08/29/17 21:00 09/28/17 20:59 Carbohydrates (Carbohydrates For Hypoglycemia) 15-30 GRAMS 15 grams if BSG 54-69... UD PRN PO 08/29/17 21:00 09/28/17 20:59 Albuterol (Ventolin Hfa Inhaler) 2 puffs Q6H PRN INH 08/29/17 21:45 09/28/17 21:44 Clopidogrel Bisulfate (plAVix TAB) 75 mg QAM PO 08/30/17 09:00 09/29/17 08:59 09/04/17 09:24 75 MG Gabapentin (Neurontin Tab) 600 mg TID PO 08/30/17 09:00 09/29/17 08:59 09/04/17 13:24 600 MG Nitroglycerin (Nitrostat Tab) 0.4 mg UD PRN UT 08/29/17 21:45 09/28/17 21:44 Miscellaneous Information (Consult Glycemic Management Pharmacy) 1 ea UD PRN N/A 08/29/17 21:57 09/28/17 21:56 Enoxaparin Sodium (Lovenox Inj) 40 mg Q24H SQ 08/30/17 21:00 09/29/17 20:59 09/03/17 20:18 40 MG Metoprolol Tartrate (Lopressor Iv) 5 mg Q6H PRN IV 08/31/17 08:30 09/30/17 08:29 08/31/17 13:55 5 MG Caspofungin 50 mg/ Sodium Chloride 110 ml @ 250 mls/hr DAILY IV 09/02/17 09:00 09/13/17 23:59 09/04/17 10:02 250 MLS/HR Lisinopril (Zestril Tab) 10 mg DAILY PO 09/02/17 09:00 10/02/17 08:59 09/04/17 09:26 10 MG Atorvastatin Calcium (Lipitor Tab) 80 mg QAM NG 09/02/17 10:00 10/02/17 09:59 09/04/17 09:24 80 MG Clonidine HCl (Catapres Tab) 0.1 mg Q6 PO 09/03/17 18:00 10/03/17 17:59 09/04/17 11:53 0.1 MG Levalbuterol (Xopenex 1.25MG/ 3ML Neb) 1.25 mg Q4R PRN INH 09/03/17 10:15 10/03/17 10:14 09/03/17 14:59 1.25 MG Ipratropium [place] (Atrovent 0.02% 0.5MG/2.5ML Neb) 0.5 mg Q4R PRN INH 09/03/17 10:15 10/03/17 10:14 09/03/17 14:59 0.5 MG Metoprolol Succinate (Toprol Xl Tab) 25 mg QAM PO 09/03/17 12:00 10/03/17 11:59 09/04/17 09:25 25 MG Prednisone (PredniSONE TAB) 40 mg Taper QAM PO 09/04/17 09:00 09/18/17 08:59 09/04/17 09:25 40 MG Oxycodone HCl (Roxicodone Immediate Rel Tab) 10 mg Taper Q6H PO 09/04/17 12:00 09/06/17 11:59 09/04/17 11:53 10 MG Oxycodone HCl (Roxicodone Immediate Rel Tab) 5 mg Q6H PRN PO 09/03/17 10:45 09/17/17 10:44 Pantoprazole Sodium (Protonix Tab) 40 mg QAM PO 09/04/17 09:00 10/04/17 08:59 09/04/17 09:24 40 MG Insulin Aspart (novoLOG ASPART) SLIDING SCALE ACHS SC 09/03/17 11:00 10/03/17 10:59 09/04/17 11:50 3 UNITS Insulin Aspart (novoLOG ASPART) SLIDING SCALE TODAY@0000,0400 SC 09/05/17 00:00 09/05/17 04:01 Aspirin (Ecotrin Tab) 81 mg QAM PO 09/05/17 09:00 10/05/17 08:59 Review of Systems Constitutional: + fever, + chills Eyes: No worsening of vision, No eye pain, No redness, No discharge, No diplopia, No problem reported ENT: No hearing loss, No unusual epistaxis, No nasal symptoms, No sore throat, No tinnitus, No dental problems, No trouble swallowing, No problem reported Respiratory: + shortness of breath Cardiovascular: No chest pain, No orthopnea, No PND, No edema, No claudication , No palpitations, No problem reported Abdomen: No pain, No nausea, No vomiting, No diarrhea, No constipation, No GI bleeding, No problem reported Musculoskeletal: No joint pain, No muscle pain, No swelling, No calf pain, No problem reported Neurologic: No memory loss, No paralysis, No weakness, No numbness/tingling, No vertigo, No balance problems, No problem reported Psychiatric: No depression symptoms, No anhedonism, No anxiety, No insomnia, No substance abuse, No problem reported Endocrine: No fatigue, No excessive thirst, No excessive urination, No problem reported Hematologic / Lymphatic: No abnormal bleeding/bruising, No clotting problems, No swollen lymph nodes, No night sweats, No problem reported Physical Exam Date Time Temp Pulse Resp B/P (MAP) Pulse Ox O2 Delivery O2 Flow Rate FiO2 09/04/17 12:00 Room Air 09/04/17 11:48 36.9 78 26 153/92 (112) 99 Room Air 09/04/17 11:07 37.0 67 19 97 09/04/17 10:00 67 19 09/04/17 09:22 72 19 147/89 (108) 09/04/17 08:00 78 23 97 Room Air 09/04/17 08:00 Room Air 09/04/17 07:00 37.0 63 17 100 Room Air 09/04/17 06:00 71 13 156/82 (106) 100 Room Air 09/04/17 04:00 37.1 77 21 145/83 (103) 92 Room Air 09/04/17 04:00 92 Room Air 09/04/17 02:00 61 20 136/67 (90) 91 Room Air 09/04/17 00:01 36.8 60 23 130/67 (88) 96 Room Air 09/03/17 23:59 96 Room Air 09/03/17 22:00 74 26 157/84 (108) 98 Room Air 09/03/17 20:00 98 Room Air 09/03/17 20:00 37.0 70 18 150/78 (102) 98 Room Air 09/03/17 18:26 71 20 161/88 (112) 98 Room Air 09/03/17 16:00 37.6 71 20 157/84 (108) 97 Room Air 09/03/17 16:00 Room Air 09/03/17 15:00 68 20 99 General Appearance: WD/WN, no apparent distress Head: normocephalic Eyes: normal inspection ENT: normal ENT inspection Neck: supple, no JVD Respiratory/Chest: chest non-tender, lungs clear Cardiovascular: regular rate, rhythm, no edema, no JVD Abdomen/GI: normal bowel sounds, non tender, soft Extremities/Musculoskelatal: + pertinent finding (one abscess on right arm size 2x2cm, redness, tenderness, ) Neurologic/Psych: no motor/sensory deficits, alert, oriented x 3 Skin: normal color, warm/dry, no rash Laboratory Results Last 24 Hours Test 09/03/17 15:37 09/03/17 20:15 09/03/17 23:34 09/04/17 04:07 Bedside Glucose 114 mg/dl 182 mg/dl 165 mg/dl 107 mg/dl Test 09/04/17 04:29 White Blood Count 16.29 K/uL Red Blood Count 3.41 M/uL Hemoglobin 9.8 g/dL Hematocrit 29.8 % Mean Corpuscular Volume 87.4 fL Mean Corpuscular Hemoglobin 28.7 pg Mean Corpuscular Hemoglobin Concent 32.9 g/dl Platelet Count 247 K/uL Mean Platelet Volume 9.8 fL Neutrophils (%) (Auto) 67.8 % Lymphocytes (%) (Auto) 21.5 % Monocytes (%) (Auto) 6.2 % Eosinophils (%) (Auto) 0.8 % Basophils (%) (Auto) 0.1 % Neutrophils # (Auto) 11.04 K/uL Lymphocytes # (Auto) 3.51 K/uL Monocytes # (Auto) 1.01 K/uL Eosinophils # (Auto) 0.13 K/uL Basophils # (Auto) 0.01 K/uL RDW Standard Deviation 48.1 fL RDW Coefficient of Variation 15.2 % Immature Granulocyte % (Auto) 3.6 % Immature Granulocyte # (Auto) 0.59 K/uL Sodium Level 140 mmol/L Potassium Level 3.4 mmol/L Chloride Level 111 mmol/L Carbon Dioxide Level 24 mmol/L Anion Gap 5.0 mmol/L Blood Urea Nitrogen 19 mg/dl Creatinine 0.63 mg/dl Est Creatinine Clear Calc Drug Dose 129.2 ml/min Estimated GFR () 131.0 Estimated GFR (Non- 113.0 BUN/Creatinine Ratio 29.6 Random Glucose 90 mg/dl Calcium Level 8.8 mg/dl Phosphorus Level 4.6 mg/dl Magnesium Level 2.1 mg/dl Procalcitonin 0.73 ng/ml Assessment & Plan Assessment: pt is a 37 year old female who is consult for abscess on right arm, IMP: abscess on right arm, Plan, I recommend to do I/D abscess on right arm, D/W benefits , risks and calternatives of the procedure, the risks - infection, bleeding , sepsis, pt understood, she agrees with the surgery, I answered all questions,
[2017-09-04 16:31] LABS: HEPATITIS C RNA TMA QUAL Detected
--- NOTE | 2017-09-04 19:43 | History & Physical Bridge Note ---
H&P Re-Evaluation Bridge Note: I have examined the patient, reviewed the History & Physical and in the interval since the performance of the History & Physical I have noted the following changes of clinical significance: No changes noted
[2017-09-04] MEDS ORDERED: FENTANYL CITRATE INJ 50 MCG/1 ML 2 ML VIAL ONE (20:10)
[2017-09-04] MEDS ORDERED: MIDAZOLAM HCL 1 MG/ML 2ML VIAL ONE ×2 (20:10)
[2017-09-04] MEDS ORDERED: ATROPINE SULFATE 0.1 MG/ML 5ML SYR IV PRN (20:15)
[2017-09-04] MEDS ORDERED: ONDANSETRON INJ 2 MG/ML 2 ML VIAL IV PRN (20:15)
[2017-09-04] MEDS ORDERED: HYDROmorphone INJ 2 MG/ML SYR/VIAL IV PRN (20:15)
[2017-09-04] MEDS ORDERED: FENTANYL CITRATE INJ 50 MCG/1 ML 2 ML VIAL IV PRN (20:15)
[2017-09-04] MEDS ORDERED: LABETALOL HCL IV 5 MG/ML 20ML IV PRN (20:15)
[2017-09-04] MEDS ORDERED: EpHEDrine SULFATE INJ 50 MG/ML AMP IV PRN (20:15)
[2017-09-04] MEDS ORDERED: MEPERIDINE HCL 25 MG/ML CARP IV PRN (20:15)
[2017-09-04] MEDS ORDERED: BACITRACIN OINT 15 GM TUBE ONE (20:23)
[2017-09-04] MEDS ORDERED: BUPIVACAINE 0.5 % 5 MG/1 ML MPF 30ML VIAL ONE (20:23)
--- NOTE | 2017-09-04 20:43 | [facility] Post Operative Brief Note ---
Immediate Operative Summary Operative Date September 04, 2017. Pre-Operative Diagnosis abscess on right arm Post-Operative Diagnosis same Procedure(s) Performed I & D abscess on right arm Surgeon Crystal Benton Bioinformaticist Surgeon(s) none Estimated Blood Loss 3 ml Findings Consistent with Post-Op Diagnosis abscess, wound culture sent Fluids (cc crystalloids) 300ml Specimens wound culture Drains None packing the wound Anesthesia Type MAC Complication(s) none Disposition Accompanied Pt To Recover: yes Disposition: Recovery Room / PACU
[2017-09-04] MEDS: ENOXAPARIN 40 MG/0.4 ML SYR SQ SCH (21:00)
--- NOTE | 2017-09-04 21:00 | Anesthesiology Progress Note ---
Anesthesia Post Op Note Date & Time September 04, 2017 at 20:58 Vital Signs Pain Intensity: 0.0 Vital Signs Past 12 Hours Date Time Temp Pulse Resp B/P (MAP) Pulse Ox O2 Delivery O2 Flow Rate FiO2 09/04/17 17:35 37.0 18 147/84 (105) 100 Room Air 09/04/17 16:00 100 Room Air 09/04/17 12:00 Room Air 09/04/17 11:48 36.9 78 26 153/92 (112) 99 Room Air 09/04/17 11:07 37.0 67 19 97 09/04/17 10:00 67 19 09/04/17 09:22 72 19 147/89 (108) Notes Mental Status: alert / awake / arousable, participated in evaluation Pt Amnestic to Procedure: Yes Nausea / Vomiting: adequately controlled Pain: adequately controlled Airway Patency, RR, SpO2: stable & adequate BP & HR: stable & adequate Hydration State: stable & adequate Anesthetic Complications: no major complications apparent Pt had procedure completed under minimal sedation. Awake alert and oriented at conclusion. Discharged directly back to 250. VSS. Report given to RN.
[2017-09-04] MEDS ORDERED: PROPOFOL IV EMULSION 10 MG/ML 20 ML VIAL ONE (21:19)
[2017-09-04] MEDS: CLINDAMYCIN 600 MG/54 ML D5W IV SCH (22:23)
--- NOTE | 2017-09-04 22:26 | Progress Note ---
Medicine Progress Note Date & Time of Visit: September 04, 2017 at 10:15 . Subjective Extubated yesterday. Oxygenating well on room air. Occasional cough productive of yellow sputum, no dyspnea. No chest pain. No nausea, vomiting, diarrhea. . Objective Last 8 Hrs Date Time Temp Pulse Resp B/P (MAP) Pulse Ox O2 Delivery O2 Flow Rate FiO2 09/04/17 21:42 36.6 60 20 158/90 (112) 98 Room Air 09/04/17 20:59 36.8 20 164/76 (105) 98 Room Air 09/04/17 17:35 37.0 18 147/84 (105) 100 Room Air 09/04/17 16:00 100 Room Air Physical Exam: General- sitting in chair, no distress Lungs- few scattered rhonchi, otherwise clear to auscultation; no respiratory distress Cardiovascular- RRR; no murmur or gallop appreciated; no JVD; trace pretibial edema Abdomen- + bowel sounds, soft, nontender Extremities- no cyanosis; no calf tenderness; apparent abscess left wrist ~ 2 cm , mild erythema Neuro- alert, oriented Skin- warm & dry . Laboratory Results: Last 24 Hours Test 09/03/17 23:34 09/04/17 04:07 09/04/17 04:29 09/04/17 07:23 Bedside Glucose 165 mg/dl 107 mg/dl 93 mg/dl White Blood Count 16.29 K/uL Red Blood Count 3.41 M/uL Hemoglobin 9.8 g/dL Hematocrit 29.8 % Mean Corpuscular Volume 87.4 fL Mean Corpuscular Hemoglobin 28.7 pg Mean Corpuscular Hemoglobin Concent 32.9 g/dl Platelet Count 247 K/uL Mean Platelet Volume 9.8 fL Neutrophils (%) (Auto) 67.8 % Lymphocytes (%) (Auto) 21.5 % Monocytes (%) (Auto) 6.2 % Eosinophils (%) (Auto) 0.8 % Basophils (%) (Auto) 0.1 % Neutrophils # (Auto) 11.04 K/uL Lymphocytes # (Auto) 3.51 K/uL Monocytes # (Auto) 1.01 K/uL Eosinophils # (Auto) 0.13 K/uL Basophils # (Auto) 0.01 K/uL RDW Standard Deviation 48.1 fL RDW Coefficient of Variation 15.2 % Immature Granulocyte % (Auto) 3.6 % Immature Granulocyte # (Auto) 0.59 K/uL Sodium Level 140 mmol/L Potassium Level 3.4 mmol/L Chloride Level 111 mmol/L Carbon Dioxide Level 24 mmol/L Anion Gap 5.0 mmol/L Blood Urea Nitrogen 19 mg/dl Creatinine 0.63 mg/dl Est Creatinine Clear Calc Drug Dose 129.2 ml/min Estimated GFR () 131.0 Estimated GFR (Non- 113.0 BUN/Creatinine Ratio 29.6 Random Glucose 90 mg/dl Calcium Level 8.8 mg/dl Phosphorus Level 4.6 mg/dl Magnesium Level 2.1 mg/dl Procalcitonin 0.73 ng/ml Test 09/04/17 11:12 09/04/17 16:39 09/04/17 21:09 Bedside Glucose 124 mg/dl 169 mg/dl 103 mg/dl Date/Time Source Procedure Growth Status 09/04/17 20:36 Abscess Arm Gram Stain Pending Received 09/04/17 20:36 Abscess Arm Bacterial Culture Pending Received Assessment & Plan SEVERE SEPSIS Met criteria for sepsis per Sepsis 1 definition and current CMS guidelines. Had abscess right wrist that was I&D'd. Serum lactate was 5.0. Mild hypotension with early systolic BPs in 90s and MAPs 67-76. Blood cultures obtained. Received fluid resuscitation and broad-spectrum antibiotics. 1 out of 2 blood cultures grew yeast, ID pending. ID consulted. Echo did not show any evidence of endocarditis. Chest x-ray showed bilateral infiltrates that have improved Influenza A/B PCR negative. Antimicrobial coverage narrowed to caspofungin for fungemia. Intermittent low-grade temps, but clinically improved. Apparent abscess right wrist- consult General Surgery for I&D. ACUTE HYPOXIC RESPIRATORY FAILURE Underlying asthma. Chest x-rays demonstrated bilateral infiltrates. Worsening oxygenation required intubation and mechanical ventilation. Influenza A/B PCR negative. Initially received broad-spectrum antibiotic coverage for pulmonary pathogens. Bronchoscopy performed 08/30/17-cultures negative. Antibacterial agents subsequently discontinued. Pulmonary status improved. Weaned and extubated. Now oxygenating well on room air. CORONARY ARTERY DISEASE Continue aspirin, metoprolol, statin. DM TYPE 2 Not well controlled. Hemoglobin A1c 9.7. Pharmacy consulted for glycemic management. Fingerstick blood sugars as high as 340. Blood sugar this morning = 93. Management per protocol. Wean steroids as tolerated. ANEMIA Hemoglobin at time of admission was 12.3 and fell as low as 8 8. Anemia probably multifactorial, secondary to infection, multiple phlebotomies, etc. No apparent GI bleeding. Hemoglobin today = 9.8. Follow. + HEP C AB Hepatitis c antibody screen positive; RNA confirmation positive as well. Will need follow-up with GI and / or ID. VTE PROPHYLAXIS SQ enoxaparin. Ambulate as able. DISPOSITION Discharge disposition to be determined. No longer critically ill. Transferred to Med-Surg Unit. PT / OT evals. Family medicine follow-up with Dr. Iverson. . Current Inpatient Medications: Current Inpatient Medications Medications (Trade) Dose Ordered Sig/Bonny Route Start Time Stop Time Status Last Admin Dose Admin Acetaminophen (Tylenol Tab) 650 mg Q4H PRN PO 08/29/17 19:00 09/28/17 18:59 08/30/17 06:06 650 MG Al Hydrox/Mg Hydrox/Simethicone (Maalox Max Susp) 15 ml Q4H PRN PO 08/29/17 19:00 09/28/17 18:59 Magnesium Hydroxide (Milk Of Magnesia Susp) 30 ml Q12H PRN PO 08/29/17 19:00 09/28/17 18:59 Ondansetron HCl (Zofran Inj) 4 mg Q6H PRN IV 08/29/17 19:00 09/28/17 18:59 08/31/17 17:23 4 MG Glucose (Glucose 40% Gel) 15-30 GRAMS 15 GRAMS... UD PRN PO 08/29/17 21:00 09/28/17 20:59 Glucose (Glucose Chew Tab) 4-8 Tablets 4 Tabl... UD PRN PO 08/29/17 21:00 09/28/17 20:59 Dextrose (Dextrose 50% 50ML Syringe) 25-50ML 25ML FOR ... UD PRN IV 08/29/17 21:00 09/28/17 20:59 Glucagon (Glucagon Inj) 1 mg UD PRN IM 08/29/17 21:00 09/28/17 20:59 Carbohydrates (Carbohydrates For Hypoglycemia) 15-30 GRAMS 15 grams if BSG 54-69... UD PRN PO 08/29/17 21:00 09/28/17 20:59 Albuterol (Ventolin Hfa Inhaler) 2 puffs Q6H PRN INH 08/29/17 21:45 09/28/17 21:44 Clopidogrel Bisulfate (plAVix TAB) 75 mg QAM PO 08/30/17 09:00 09/29/17 08:59 09/04/17 09:24 75 MG Gabapentin (Neurontin Tab) 600 mg TID PO 08/30/17 09:00 09/29/17 08:59 09/04/17 21:45 600 MG Nitroglycerin (Nitrostat Tab) 0.4 mg UD PRN UT 08/29/17 21:45 09/28/17 21:44 Miscellaneous Information (Consult Glycemic Management Pharmacy) 1 ea UD PRN N/A 08/29/17 21:57 09/28/17 21:56 Enoxaparin Sodium (Lovenox Inj) 40 mg Q24H SQ 08/30/17 21:00 09/29/17 20:59 09/03/17 20:18 40 MG Metoprolol Tartrate (Lopressor Iv) 5 mg Q6H PRN IV 08/31/17 08:30 09/30/17 08:29 08/31/17 13:55 5 MG Caspofungin 50 mg/ Sodium Chloride 110 ml @ 250 mls/hr DAILY IV 09/02/17 09:00 09/13/17 23:59 09/04/17 10:02 250 MLS/HR Lisinopril (Zestril Tab) 10 mg DAILY PO 09/02/17 09:00 10/02/17 08:59 09/04/17 09:26 10 MG Atorvastatin Calcium (Lipitor Tab) 80 mg QAM NG 09/02/17 10:00 10/02/17 09:59 09/04/17 09:24 80 MG Clonidine HCl (Catapres Tab) 0.1 mg Q6 PO 09/03/17 18:00 10/03/17 17:59 09/04/17 21:44 0.1 MG Levalbuterol (Xopenex 1.25MG/ 3ML Neb) 1.25 mg Q4R PRN INH 09/03/17 10:15 10/03/17 10:14 09/03/17 14:59 1.25 MG Ipratropium E[place]ora (Atrovent 0.02% 0.5MG/2.5ML Neb) 0.5 mg Q4R PRN INH 09/03/17 10:15 10/03/17 10:14 09/03/17 14:59 0.5 MG Metoprolol Succinate (Toprol Xl Tab) 25 mg QAM PO 09/03/17 12:00 10/03/17 11:59 09/04/17 09:25 25 MG Prednisone (PredniSONE TAB) 40 mg Taper QAM PO 09/04/17 09:00 09/18/17 08:59 09/04/17 09:25 40 MG Oxycodone HCl (Roxicodone Immediate Rel Tab) 5 mg Q6H PRN PO 09/03/17 10:45 09/17/17 10:44 Pantoprazole Sodium (Protonix Tab) 40 mg QAM PO 09/04/17 09:00 10/04/17 08:59 09/04/17 09:24 40 MG Insulin Aspart (novoLOG ASPART) SLIDING SCALE ACHS SC 09/03/17 11:00 10/03/17 10:59 09/04/17 11:50 3 UNITS Insulin Aspart (novoLOG ASPART) SLIDING SCALE TODAY@0000,0400 NH 09/05/17 00:00 09/05/17 04:01 Aspirin (Ecotrin Tab) 81 mg QAM PO 09/05/17 09:00 10/05/17 08:59 Clindamycin Phosphate (Cleocin 600mg/ 54ml D5W) 600 mg PREOP IV 09/04/17 20:00 09/05/17 19:59 09/04/17 22:23 600 MG Fentanyl Citrate (Fentanyl Inj) 50 mcg Q5M PRN IV 09/04/17 20:15 09/05/17 01:00 Hydromorphone HCl (Dilaudid Inj) 0.5 mg Q5M PRN IV 09/04/17 20:15 09/05/17 01:00 Meperidine HCl (Demerol Inj) 25 mg Q5M PRN IV 09/04/17 20:15 09/05/17 01:00 Ondansetron HCl (Zofran Inj) 4 mg ONE PRN IV 09/04/17 20:15 09/05/17 01:00 Labetalol HCl (Normodyne IV) 5 mg Q5M PRN IV 09/04/17 20:15 09/05/17 01:00 Ephedrine Sulfate (EpHEDrine SULFATE INJ) 5 mg Q5M PRN IV 09/04/17 20:15 09/05/17 01:00 Atropine Sulfate (Atropine Sulfate 0.1mg/ml Inj) 0.5 mg Q1M PRN IV 09/04/17 20:15 09/05/17 01:00 Oxycodone HCl (Roxicodone Immediate Rel Tab) 10 mg Taper Q6H PO 09/04/17 22:00 09/06/17 15:59 09/04/17 21:46 10 MG
[2017-09-05] VITALS (8 sets, daily range): BP systolic 132–149; BP diastolic 75–87; PULSE 53–74; TEMP 36.6–37.1; O2SAT 97–100
[2017-09-05] MEDS: CLONIDINE HCL 0.1 MG TAB PO SCH ×4 (00:15→18:04)
[2017-09-05] MEDS ORDERED: ZOLPIDEM TARTRATE 5 MG TAB PO ONE (01:15)
--- NOTE | 2017-09-05 02:24 | OPERATIVE REPORT ---
DATE OF OPERATION: 09/04/2017 PREOPERATIVE DIAGNOSIS: Abscess on the right arm. POSTOPERATIVE DIAGNOSIS: Abscess on the right arm. PROCEDURE: I and D, abscess on the right arm. SURGEON: Crystal Barnard MD ANESTHESIA: Conscious sedation plus local. ESTIMATED BLOOD LOSS: About 3 mL FINDINGS: Abscess, wound culture sent. COMPLICATIONS: None. INDICATIONS FOR THE PROCEDURE: This is a 37-year-old gentleman who is admitted to the hospital with the sepsis difficult to breath and patient had abscess on the right arm. The patient require to do I and D abscess on the right arm. I did talk to the patient about the benefit, risk, and alternate procedure. I indicated the risks may include but not limited such as bleeding, infection, sepsis. The patient understands. She signed informed consent and I answered all questions. DETAILS OF PROCEDURE: We brought the patient to the OR, put the patient in the supine position. The patient received SCD on bilateral legs to prevent DVT and patient received conscious sedation by the anesthesiology. The patient received 600 mg clindamycin IV for prophylactic antibiotics. The right arm was appropriately draped in routine sterile fashion. After time out, injection 0.5% Marcaine around the abscess. The abscess size was about 2 x 2 cm redness, tenderness. Then I used a 15 blade to open the abscess and there was some pus come out immediately. We send that for wound culture. Once we cleaned up the abscess. Packing the wound and hemostasis obtained. Then we put the dressing on. The patient tolerated the procedure well. All instrument, needle, sponge count correct x2 at the end the case. The patient transferred to her first room in stable condition. I attest to the content of the Intraoperative Record and any orders documented therein. Any exceptions are noted below. MTDD
[2017-09-05] MEDS: INSULIN ASPART 100 UNITS/ML 3 ML PEN SC SCH ×5 (04:00→17:14)
[2017-09-05] MEDS: OXYCODONE HCL IR 5 MG TAB (IMMEDIATE RELEASE) PO SCH ×3 (04:55→16:07)
[2017-09-05] MEDS: CLINDAMYCIN 600 MG/54 ML D5W IV SCH (06:00)
[2017-09-05 07:18] LABS: HEMATOCRIT 32.5 % (37-47); HEMOGLOBIN 10.3 g/dL (12.0-16.0); MEAN CELL VOLUME 88.3 fL (80-100); MEAN CORPUSCULAR HGB CONC 31.7 g/dl (32-36); MEAN PLATELET VOLUME 10.1 fL (7.4-10.4); PLATELET COUNT 306 K/uL (130-400); RED CELL DISTRIBUTION WIDTH CV 15.4 % (11.5-14.5); RED CELL DISTRIBUTION WIDTH SD 49.1 fL (36.4-46.3); WHITE BLOOD COUNT 15.29 K/uL (4.8-10.8)
[2017-09-05 07:48] LABS: CREATININE 0.76 mg/dl (0.60-1.20); POTASSIUM 3.5 mmol/L (3.5-5.1)
[2017-09-05] MEDS: PANTOprazole SOD 40 MG TAB PO SCH (07:58)
[2017-09-05] MEDS: GABAPENTIN 600 MG TAB PO SCH ×2 (07:59→13:58)
[2017-09-05] MEDS: METOPROLOL SUCC 25MG EXT REL TAB PO SCH (07:59)
[2017-09-05] MEDS: CLOPIDOGREL BISULFATE 75 MG TAB PO SCH (08:00)
[2017-09-05] MEDS: ATORVASTATIN 40 MG TAB NG SCH (08:00)
[2017-09-05] MEDS: LISINOPRIL 10 MG TAB PO SCH (08:08)
[2017-09-05] MEDS: CASPOFUNGIN INJ 50 MG in SODIUM CHLORIDE 0.9% 100ML 100 ML IV SCH (08:35)
[2017-09-05] MEDS ORDERED: ASPIRIN 81 MG ECTAB PO SCH (09:00)
--- NOTE | 2017-09-05 11:02 | Progress Note ---
Subjective Date of Service: September 05, 2017. Subjective Pt evaluation today including: conversation w/ patient, conversation w/ family , physical exam, chart review, lab review Patient is seen in follow-up examination. She has been transferred from the intensive care unit. She remains caspofungin and is tolerating this well. Her initial blood culture is now growing Diana d[place]ensis. Her repeat blood cultures are negative. She did go for I and D of her right forearm abscess yesterday. Wound cultures pending. She is on clindamycin empirically. Her breathing is much improved. She has been afebrile. Her white blood cell remains elevated at 15 but is trending down. She states she is anxious to go home. All remaining review of systems are reviewed and are unremarkable. Problem List Medical Problems: (1) Abdominal pain Status: Acute (2) Abscess of left hand including fingers Status: Acute (3) Abscess of right forearm Status: Acute (4) Abscess of upper extremity Status: Acute (5) Abscess or cellulitis of scalp Status: Acute (6) Anemia Status: Acute (7) Asthma Status: Chronic (8) Benign hypertension Status: Chronic (9) Colitis Status: Acute (10) Diabetes mellitus Status: Chronic (11) Dyslipidemia Status: Chronic (12) Elevated lactic acid level Status: Acute (13) Ganglion cyst of tendon sheath of left hand Status: Acute (14) Hyperglycemia Status: Acute (15) Hypoxemia Status: Acute (16) Infectious colitis Status: Acute (17) Left groin pain Status: Acute (18) Low back pain Status: Acute (19) Non-STEMI (non-ST elevated myocardial infarction) Status: Acute (20) Right ankle pain Status: Acute (21) Right hand pain Status: Acute (22) Sepsis affecting skin Status: Acute Objective Vital Signs Date Time Temp Pulse Resp B/P (MAP) Pulse Ox O2 Delivery O2 Flow Rate FiO2 09/05/17 08:00 97 Room Air 09/05/17 07:04 36.7 62 16 139/81 (100) 97 Room Air 09/05/17 03:20 36.6 74 18 132/78 (96) 98 09/05/17 00:00 37.1 74 17 147/80 (102) 97 Room Air 09/04/17 23:59 36.5 78 18 138/80 (99) 97 Room Air 09/04/17 23:59 Room Air 09/04/17 22:36 36.6 75 20 135/79 (97) 98 Room Air 09/04/17 21:42 36.6 60 20 158/90 (112) 98 Room Air 09/04/17 20:59 36.8 20 164/76 (105) 98 Room Air 09/04/17 17:35 37.0 18 147/84 (105) 100 Room Air 09/04/17 16:00 100 Room Air 09/04/17 12:00 Room Air 09/04/17 11:48 36.9 78 26 153/92 (112) 99 Room Air 09/04/17 11:07 37.0 67 19 97 Physical Exam General Appearance: WD/WN, no apparent distress Eyes: normal inspection, EOMI Neck: supple Respiratory/Chest: lungs clear, normal breath sounds, no respiratory distress Cardiovascular: regular rate, rhythm, no edema, no murmur Abdomen: non tender, soft Extremities: non-tender, no pedal edema Neurologic/Psychiatric: alert, oriented x 3 Skin: normal color Comments: The right hand dressing is clean dry and intact Laboratory Results Item Value Date Time Blood Culture - Final Complete 08/29/17 1725 Blood Diana Dubliniensis Blood Culture - Preliminary Resulted 09/02/17 1151 Blood NO GROWTH TO DATE. Blood Culture - Preliminary Resulted 09/02/17 1152 Blood NO GROWTH TO DATE. Gram Stain - Final Resulted 09/04/17 2036 Abscess Arm Last 24 Hours Test 09/04/17 11:12 09/04/17 16:39 09/04/17 21:09 09/05/17 06:31 Bedside Glucose 124 mg/dl 169 mg/dl 103 mg/dl White Blood Count 15.29 K/uL Red Blood Count 3.68 M/uL Hemoglobin 10.3 g/dL Hematocrit 32.5 % Mean Corpuscular Volume 88.3 fL Mean Corpuscular Hemoglobin 28.0 pg Mean Corpuscular Hemoglobin Concent 31.7 g/dl RDW Standard Deviation 49.1 fL RDW Coefficient of Variation 15.4 % Platelet Count 306 K/uL Mean Platelet Volume 10.1 fL Sodium Level 141 mmol/L Potassium Level 3.5 mmol/L Chloride Level 109 mmol/L Carbon Dioxide Level 21 mmol/L Anion Gap 11.0 mmol/L Blood Urea Nitrogen 21 mg/dl Creatinine 0.76 mg/dl Est Creatinine Clear Calc Drug Dose 105.3 ml/min Estimated GFR () 114.5 Estimated GFR (Non- 98.8 BUN/Creatinine Ratio 27.0 Random Glucose 95 mg/dl Calcium Level 9.0 mg/dl Test 09/05/17 07:10 Bedside Glucose 108 mg/dl Assessment and Plan (1) Fungemia Assessment & Plan: She will be transitioned to oral fluconazole. She will need to complete a 14 day course from her 1st negative blood culture. Her cultures from September 02 remain negative. (2) Abscess Assessment & Plan: She can continue clindamycin pending culture results.
[2017-09-05] MEDS: ACETAMINOPHEN 325 MG TAB PO PRN (12:16)
[2017-09-05] MEDS ORDERED: INSULIN HUMAN NPH SC ONE (12:30)
--- NOTE | 2017-09-05 14:25 | Pharmacy Progress Note ---
Pharmacy Glycemic Short Note 2 Date of Service September 05, 2017. OUTPATIENT ANTIDIABETIC REGIMEN: * Metformin 1000mg PO BID Item Value Date Time Bedside Glucose 107 mg/dl H 09/04/17 0407 Bedside Glucose 93 mg/dl H 09/04/17 0723 Bedside Glucose 124 mg/dl H 09/04/17 1112 Bedside Glucose 169 mg/dl H 09/04/17 1639 Bedside Glucose 103 mg/dl H 09/04/17 2109 Bedside Glucose 108 mg/dl H 09/05/17 0710 Bedside Glucose 221 mg/dl H 09/05/17 1131 ASSESSMENT: 09/04 * BSG's ranging 93-182 mg/dL over the last 24 hours * Steroids continuing to taper - anticipate increased insulin sensitivity therefore will significantly loosen regimen despite adequate BSG control * Switching Lantus to NPH for better PK parameters while on once-daily prednisone. But will still utilize Lantus this evening if BSG's elevated (do not want NPH active overnight 2nd increased risk for hypoglycemia) * Loosened CHO count at breakfast - will continue to loosen more at dinner as breakfast to lunch BSG only increased 93 to 124 mg/dL (and concern for stacking at this time increasing risk for lower BSG obtained at dinner) 09/05/17: * Adequate BSG control over the past 24 hours. Pt received 51 units of insulin. * Continue NPH 30 units daily to cover effect of prednisone 40 mg daily - will decrease NPH dose with each step down in steroid dose * Fasting BSG of 108 mg/dL is at goal * Post prandial BSGs are also at goal with the exception of lunch today (221 mg/ dL). I spoke with the patient's RN, who reported Fritz was drinking a soda just prior to BSG testing. PLAN FOR INPATIENT GLYCEMIC CONTROL: * Hold outpatient oral diabetes medications * Basal insulin * NPH 30 units SQ daily with lunch (while on Pred 40 mg) * Decrease to NPH 24 units on 09/05 * Bolus insulin - no change * NovoLog SQ ACHS * Goal range: 140 - 180 mg/dL * Correction Factor: 15 mg/dl/unit * Nutritional / Prandial insulin per carb ratio of 1 unit per 5 grams CHO consumed PLAN FOR DISCHARGE: * A1c = 9.7% - recommend adding basal insulin to outpatient regimen * Start at 16 units SQ once daily * If patient is discharged on prednisone, consider addition of once daily dose of weight based NPH * Pred 30 mg = NPH 24 units daily * Pred 20 mg or less= NPH 16 units daily
--- NOTE | 2017-09-05 16:22 | Surgery Progress Note ---
Surgery Progress Note Date of Service September 05, 2017. Patient seen at 1 pm Subjective Post OP Day: 1 (s/p I&D abscess right forearm) feeling much better states nurse changed dressing this am and packing fell out. Dressing clean and dry. No nausea or vomiting Objective Vital Signs: Date Time Temp Pulse Resp B/P (MAP) Pulse Ox O2 Delivery O2 Flow Rate FiO2 09/05/17 15:14 36.8 53 16 146/87 (106) 97 Room Air 09/05/17 08:00 97 Room Air 09/05/17 07:04 36.7 62 16 139/81 (100) 97 Room Air 09/05/17 03:20 36.6 74 18 132/78 (96) 98 09/05/17 00:00 37.1 74 17 147/80 (102) 97 Room Air 09/04/17 23:59 36.5 78 18 138/80 (99) 97 Room Air 09/04/17 23:59 Room Air 09/04/17 22:36 36.6 75 20 135/79 (97) 98 Room Air 09/04/17 21:42 36.6 60 20 158/90 (112) 98 Room Air 09/04/17 20:59 36.8 20 164/76 (105) 98 Room Air 09/04/17 17:35 37.0 18 147/84 (105) 100 Room Air General Appearance: WD/WN, no apparent distress Head: normocephalic, atraumatic Neck: trachea midline Respiratory/Chest: no respiratory distress, no accessory muscle use Extremities: + pertinent finding (RUE: dressing of the distal right forearm / wrist clean and dry, no drainage present) Laboratory Results: Results Past 24 Hours Test 09/04/17 16:39 09/04/17 21:09 09/05/17 06:31 09/05/17 07:10 Range/Units Bedside Glucose 169 103 108 70-90 mg/dl White Blood Count 15.29 4.8-10.8 K/uL Red Blood Count 3.68 4.2-5.4 M/uL Hemoglobin 10.3 12.0-16.0 g/dL Hematocrit 32.5 37-47 % Mean Corpuscular Volume 88.3 80-100 fL Mean Corpuscular Hemoglobin 28.0 25-34 pg Mean Corpuscular Hemoglobin Concent 31.7 32-36 g/dl RDW Standard Deviation 49.1 36.4-46.3 fL RDW Coefficient of Variation 15.4 11.5-14.5 % Platelet Count 306 130-400 K/uL Mean Platelet Volume 10.1 7.4-10.4 fL Sodium Level 141 136-145 mmol/L Potassium Level 3.5 3.5-5.1 mmol/L Chloride Level 109 98-107 mmol/L Carbon Dioxide Level 21 21-32 mmol/L Anion Gap 11.0 3-11 mmol/L Blood Urea Nitrogen 21 7-18 mg/dl Creatinine 0.76 0.60-1.20 mg/dl Est Creatinine Clear Calc Drug Dose 105.3 ml/min Estimated GFR () 114.5 Estimated GFR (Non- 98.8 BUN/Creatinine Ratio 27.0 10-20 Random Glucose 95 70-99 mg/dl Calcium Level 9.0 8.5-10.1 mg/dl Test 09/05/17 11:31 Range/Units Bedside Glucose 221 70-90 mg/dl Microbiology Results 09/04/17 Gram Stain - Final, Resulted 09/04/17 Bacterial Culture - Preliminary, Resulted YEAST Assessment & Plan POD # 1 s/p I&D of right forearm/wrist abscess - vitals stable, leukocytosis improving to 15K (16K yesterday), afebrile - decreased pain of the right wrist/forearm Plan: Nurse to change dressing daily, apply bacitracin to the wound daily Patient may follow-up with wound care clinic for further wound care Continue current medical management Wound culture still pending our services signing off, thank you for consultation Dr Barnard has seen and examined pt, agrees with above
--- NOTE | 2017-09-05 19:08 | Progress Note ---
Medicine Progress Note Date & Time of Visit: September 05, 2017 at 19:08 . Subjective Doing well. No fever. Minimal cough. No SOB. No chest pain. No nausea, vomiting, diarrhea. Ambulating. Would like to be discharged. . Objective Last 8 Hrs Date Time Temp Pulse Resp B/P (MAP) Pulse Ox O2 Delivery O2 Flow Rate FiO2 09/05/17 18:03 63 149/75 (99) 98 Room Air 09/05/17 16:00 100 Room Air 09/05/17 15:14 36.8 53 16 146/87 (106) 97 Room Air Physical Exam: General- no distress Lungs- clear to auscultation; no respiratory distress Cardiovascular- RRR; no murmur or gallop appreciated; no JVD; trace pretibial edema Abdomen- + bowel sounds, soft, nontender Extremities- no cyanosis; no calf tenderness; incision right ventral wrist without erythema or drainage Neuro- alert, oriented Skin- warm & dry . Laboratory Results: Last 24 Hours Test 09/04/17 21:09 09/05/17 06:31 09/05/17 07:10 09/05/17 11:31 Bedside Glucose 103 mg/dl 108 mg/dl 221 mg/dl White Blood Count 15.29 K/uL Red Blood Count 3.68 M/uL Hemoglobin 10.3 g/dL Hematocrit 32.5 % Mean Corpuscular Volume 88.3 fL Mean Corpuscular Hemoglobin 28.0 pg Mean Corpuscular Hemoglobin Concent 31.7 g/dl RDW Standard Deviation 49.1 fL RDW Coefficient of Variation 15.4 % Platelet Count 306 K/uL Mean Platelet Volume 10.1 fL Sodium Level 141 mmol/L Potassium Level 3.5 mmol/L Chloride Level 109 mmol/L Carbon Dioxide Level 21 mmol/L Anion Gap 11.0 mmol/L Blood Urea Nitrogen 21 mg/dl Creatinine 0.76 mg/dl Est Creatinine Clear Calc Drug Dose 105.3 ml/min Estimated GFR () 114.5 Estimated GFR (Non- 98.8 BUN/Creatinine Ratio 27.0 Random Glucose 95 mg/dl Calcium Level 9.0 mg/dl Test 09/05/17 16:13 Bedside Glucose 206 mg/dl Date/Time Source Procedure Growth Status 09/04/17 20:36 Abscess Arm Gram Stain - Final Resulted 09/04/17 20:36 Bacterial Culture - Preliminary YEAST Resulted Assessment & Plan SEVERE SEPSIS Met criteria for sepsis per Sepsis 1 definition and current CMS guidelines. Had abscess right wrist that was I&D'd. Serum lactate was 5.0. Mild hypotension with early systolic BPs in 90s and MAPs 67-76. Blood cultures obtained. Received fluid resuscitation and broad-spectrum antibiotics. 1 out of 2 blood cultures grew yeast, ID pending. ID consulted. Echo did not show any evidence of endocarditis. Funduscopic eye exam by Ophthalmology did not reveal any evidence of fungal and endophthalmitis. Chest x-ray showed bilateral infiltrates that have improved Influenza A/B PCR negative. Antimicrobial coverage narrowed to caspofungin for fungemia. Right wrist abscess incised and drained. Gram stain showed many WBC's, no organisms. Culture from abscess growing yeast. No apparent need for anti-bacterial coverage. Discharge on fluconazole 400 mg daily x 14 days. ACUTE HYPOXIC RESPIRATORY FAILURE Underlying asthma. Chest x-rays demonstrated bilateral infiltrates. Worsening oxygenation required intubation and mechanical ventilation. Influenza A/B PCR negative. Initially received broad-spectrum antibiotic coverage for pulmonary pathogens. Bronchoscopy performed 08/30/17-cultures negative. Antibacterial agents subsequently discontinued. Pulmonary status improved. Weaned and extubated. Oxygenating well on room air at time of discharge. CORONARY ARTERY DISEASE Continue aspirin, metoprolol, statin. DM TYPE 2 Not well controlled. Hemoglobin A1c 9.7. Pharmacy consulted for glycemic management. Fingerstick blood sugars as high as 340. Blood sugar this morning = 108. Management per protocol. Wean steroids as tolerated. Discharged on usual regimen. ANEMIA Hemoglobin at time of admission was 12.3 and fell as low as 8 8. Anemia probably multifactorial, secondary to infection, multiple phlebotomies, etc. No apparent GI bleeding. Hemoglobin today = 10.3. Follow. + HEP C AB Hepatitis c antibody screen positive; RNA confirmation positive as well. Discussed with GI. Will need follow-up with GI. VTE PROPHYLAXIS SQ enoxaparin. Ambulating. DISPOSITION Discharged to home. Family medicine follow-up with Dr. Iverson. . Current Inpatient Medications: Current Inpatient Medications Medications (Trade) Dose Ordered Sig/Bonny Route Start Time Stop Time Status Last Admin Dose Admin Acetaminophen (Tylenol Tab) 650 mg Q4H PRN PO 08/29/17 19:00 09/28/17 18:59 09/05/17 12:16 650 MG Al Hydrox/Mg Hydrox/Simethicone (Maalox Max Susp) 15 ml Q4H PRN PO 08/29/17 19:00 09/28/17 18:59 Magnesium Hydroxide (Milk Of Magnesia Susp) 30 ml Q12H PRN PO 08/29/17 19:00 09/28/17 18:59 Ondansetron HCl (Zofran Inj) 4 mg Q6H PRN IV 08/29/17 19:00 09/28/17 18:59 08/31/17 17:23 4 MG Glucose (Glucose 40% Gel) 15-30 GRAMS 15 GRAMS... UD PRN PO 08/29/17 21:00 09/28/17 20:59 Glucose (Glucose Chew Tab) 4-8 Tablets 4 Tabl... UD PRN PO 08/29/17 21:00 09/28/17 20:59 Dextrose (Dextrose 50% 50ML Syringe) 25-50ML 25ML FOR ... UD PRN IV 08/29/17 21:00 09/28/17 20:59 Glucagon (Glucagon Inj) 1 mg UD PRN IM 08/29/17 21:00 09/28/17 20:59 Carbohydrates (Carbohydrates For Hypoglycemia) 15-30 GRAMS 15 grams if BSG 54-69... UD PRN PO 08/29/17 21:00 09/28/17 20:59 Albuterol (Ventolin Hfa Inhaler) 2 puffs Q6H PRN INH 08/29/17 21:45 09/28/17 21:44 Clopidogrel Bisulfate (plAVix TAB) 75 mg QAM PO 08/30/17 09:00 09/29/17 08:59 09/05/17 08:00 75 MG Gabapentin (Neurontin Tab) 600 mg TID PO 08/30/17 09:00 09/29/17 08:59 09/05/17 13:58 600 MG Nitroglycerin (Nitrostat Tab) 0.4 mg UD PRN UT 08/29/17 21:45 09/28/17 21:44 Miscellaneous Information (Consult Glycemic Management Pharmacy) 1 ea UD PRN N/A 08/29/17 21:57 09/28/17 21:56 Enoxaparin Sodium (Lovenox Inj) 40 mg Q24H SQ 08/30/17 21:00 09/29/17 20:59 09/03/17 20:18 40 MG Metoprolol Tartrate (Lopressor Iv) 5 mg Q6H PRN IV 08/31/17 08:30 09/30/17 08:29 08/31/17 13:55 5 MG Lisinopril (Zestril Tab) 10 mg DAILY PO 09/02/17 09:00 10/02/17 08:59 09/05/17 08:08 10 MG Atorvastatin Calcium (Lipitor Tab) 80 mg QAM NG 09/02/17 10:00 10/02/17 09:59 Future Hold 09/05/17 08:00 80 MG Clonidine HCl (Catapres Tab) 0.1 mg Q6 PO 09/03/17 18:00 10/03/17 17:59 09/05/17 18:04 0.1 MG Levalbuterol (Xopenex 1.25MG/ 3ML Neb) 1.25 mg Q4R PRN INH 09/03/17 10:15 10/03/17 10:14 09/03/17 14:59 1.25 MG Ipratropium [place] (Atrovent 0.02% 0.5MG/2.5ML Neb) 0.5 mg Q4R PRN INH 09/03/17 10:15 10/03/17 10:14 09/03/17 14:59 0.5 MG Metoprolol Succinate (Toprol Xl Tab) 25 mg QAM PO 09/03/17 12:00 10/03/17 11:59 09/05/17 07:59 25 MG Prednisone (PredniSONE TAB) 40 mg Taper QAM PO 09/04/17 09:00 09/18/17 08:59 09/05/17 07:59 40 MG Oxycodone HCl (Roxicodone Immediate Rel Tab) 5 mg Q6H PRN PO 09/03/17 10:45 09/17/17 10:44 Pantoprazole Sodium (Protonix Tab) 40 mg QAM PO 09/04/17 09:00 10/04/17 08:59 09/05/17 07:58 40 MG Insulin Aspart (novoLOG ASPART) SLIDING SCALE ACHS SC 09/03/17 11:00 10/03/17 10:59 09/05/17 17:14 8 UNITS Aspirin (Ecotrin Tab) 81 mg QAM PO 09/05/17 09:00 10/05/17 08:59 09/05/17 08:00 81 MG Clindamycin Phosphate (Cleocin 600mg/ 54ml D5W) 600 mg PREOP IV 09/04/17 20:00 09/05/17 19:59 09/04/17 22:23 600 MG Oxycodone HCl (Roxicodone Immediate Rel Tab) 5 mg Taper Q6H PO 09/04/17 22:00 09/06/17 15:59 09/05/17 16:07 5 MG Fluconazole (Diflucan Tab) 400 mg QAM PO 09/06/17 09:00 09/16/17 08:59 Insulin Human NPH (novoLIN-N NPH) 24 units QDL SC 09/06/17 12:00 10/06/17 11:59 Bacitracin (Bacitracin Oint) 1 appln DAILY EXT 09/06/17 09:00 10/06/17 08:59
[2017-09-05] MEDS ORDERED: ATV5X PO (19:22)
[2017-09-05] MEDS ORDERED: TRAZ1TAB52 PO (19:22)
[2017-09-05] MEDS ORDERED: SERT1TAB92 PO (19:22)
[2017-09-05] MEDS ORDERED: DFL100 PO (19:26)
[2017-09-05] MEDS ORDERED: PRD10 PO (19:26)
--- NOTE | 2017-09-05 19:39 | Discharge Instructions ---
Discharge Instructions Date of Service September 05, 2017. Admission Reason for Admission: sepsis, trouble breathing . Discharge Discharge Diagnosis / Problem: sepsis (severe infection) due to yeast in bloodstream Discharge Goals Goal(s): Improve disease control Activity Recommendations Activity Limitations: resume your previous activity . Instructions / Follow-Up Instructions / Follow-Up APPOINTMENTS: FAMILY MEDICINE 09/11/2017 10:40 AM Irvin Iverson MD OTHER INSTRUCTIONS: Apply Bacitracin to incision right wrist daily and cover with sterile gauze dressing. Cultures from your blood and abscess on right wrist grew yeast. Take fluconazole (Diflucan) 400 mg daily for 11 days to complete treatment of yeast infection. Take prednisone as directed: 3 pills (30 mg) for 2 days 2 pills (20 mg) for 2 days 1 pill (10 mg) for 2 days then stop Please do not smoke. Please discuss with Dr. Iverson if you need guidance or assistance. Please do not drink excessive amounts of alcohol. Please do not use any recreation drugs. Seek medical attention if you have: * temperature above 101 * chest pain or trouble breathing * abdominal pain, nausea, vomiting * diarrhea, dark stools or bloody stools * abscess developing again; redness around incision; drainage from incision; poor healing of incision * any unanswered questions or concerns Call 911 if symptoms are severe. Call if you have any questions or problems. My cell # is [phone]. You can also reach a [facility] hospitalist on duty at [facility] 24 hours a day by calling [phone]. Please take good care of yourself. Christiano Jennings . Current Hospital Diet Patient's current hospital diet: Diabetes Type 2 Diet, AHA Diet (Heart Healthy) Discharge Diet Recommended Diet: AHA Diet (Heart Healthy), Diabetes Type 2 Diet Procedures Procedures Performed: Incision and drainage on abscess right arm Pending Studies Studies pending at discharge: no Laboratory Results Hemoglobin A1c Test 08/29/17 16:55 Range/Units Estimated Average Glucose 232 mg/dl Hemoglobin A1c 9.7 H 4.5-5.6 % Medical Emergencies . Who to Call and When: Medical Emergencies: If at any time you feel your situation is an emergency, please call 911 immediately. . Non-Emergent Contact Non-Emergency issues call your: Primary Care Provider, Hospital Doctor . . "Provider Documentation" section prepared by Christiano Jennings. . [facility] Drug Monitoring Program Search Results: patient reviewed within database, no issues identified
--- NOTE | 2017-09-05 20:24 | Progress Note ---
Post ICU Progress Note Date & Time September 05, 2017 at 20:24 Vital Signs Vital Signs Past 12 Hours Date Time Temp Pulse Resp B/P (MAP) Pulse Ox O2 Delivery O2 Flow Rate FiO2 09/05/17 20:08 36.8 63 16 98 Room Air 09/05/17 18:03 63 149/75 (99) 98 Room Air 09/05/17 16:00 100 Room Air 09/05/17 15:14 36.8 53 16 146/87 (106) 97 Room Air Notes Mental Status: alert / awake, participated in evaluation Nausea / Vomiting: adequately controlled Pain: adequately controlled Airway Patency, RR, SpO2: stable & adequate BP & HR: stable & adequate Fritz Gonzalez is a 37yo who entered the ICU on 08/29/2017 for sepsis 2/2 right wrist abscess. Pt ultimately went into ARDS and required intubation on 08/31 with bronchoscopy. Ultimately pts blood cultures returned positive for fungal infection. During hospitalization pt underwent STEVEN to roll out vegetation. Arterial line was placed and since removed without issue. Pt had only PIVs and did not undergo CVL placement or other invasive monitoring. Pt was extubated on 09/03 without issue and downgraded to telemetry the following day. I found her this evening standing in her doorway dressed and ready for discharge. She states she was just waiting for her paperwork to leave. She did undergo I&D of her right wrist yesterday and her bandage today was clean, dry, and intact. Lung sounds are much improved from prior otherwise no changes were found on physical exam. She is stable. Consider outpatient follow up in 1 to 2 weeks with: Appt already set with Dr. Iverson for 09/11 @ 10:40 Repeat imaging needed: NA Follow up cultures: None at this time Reviewed progress notes, labs, and inpatient medication list Continue current management Additional recommendations: * Dr. Jennings provided prescription for fluconazole (Diflucan) 400 mg daily for 11 days to complete treatment of yeast infection. Complete this even if all symptoms had resolved. * Closely monitor blood sugars, they will likely be elevated as you taper off the prednisone steroid. Please feel free to reconsult as needed CCT: 0 minutes; level 1 inpatient billing. Not including any billable procedures. Patient is hemodynamically stable. She is being discharged this evening. Thank you for including us in the care of this patient. Please review Dr. Enrique Jaquez's addendum for further recommendations. Consults & Procedures Consultants: Dr. Jensen -pulmonary Dr. Main -infectious disease Dr. Gonzales -cardiology Dr. Enriquez -ophthalmology Procedures: Endotracheal intubation 08/30/2017 Extubated: 09/03/17 Axillary arterial line 08/30/2017 Fiberoptic bronchoscopy 08/30/2017 Transesophageal echocardiogram 08/31/2017
[2017-09-06] MEDS ORDERED: BACITRACIN OINT 15 GM TUBE EXT SCH (09:00)
[2017-09-06] MEDS ORDERED: FLUCONAZOLE 100 MG TAB PO SCH (09:00)
[2017-09-06] MEDS ORDERED: INSULIN HUMAN NPH SC SCH (12:00)
--- NOTE | 2017-09-06 21:09 | EMERGENCY ROOM VISIT NOTE ---
History Report prepared by Dottie: Hilton Willis Under the Supervision of: Dr. Merlin Wells M.D. First contact with patient: 16:49 Chief Complaint: FEVER Stated Complaint: FEVER 103 History of Present Illness The patient is a 37 year old white female with a past medical history of asthma , hypertension, DVT, dyslipidemia, kidney stone, and diabetes who presents to the Emergency Room with complaints of a constant fever that she first noticed this afternoon at 1400, 3 hours ago. The patient states that she was started on Bactrum 2 days ago for an abscess on her right wrist. She took 2 dosages of this medication yesterday and 1 today. Her symptoms began this morning when she felt "disoriented" and "hazy." Her symptoms worsened at 1400 when her temperature jagjit to 104.1 degrees and she started to feel "shaky." The patient continued to mention that she has pain in her neck. Source of History: patient Onset: 3 hours ago Position: head, other (Globally) Quality: other (fever globally, "hazy" in head) Timing: constant (fever) Associated Symptoms: + neck pain Review of Systems See HPI for pertinent positives and negatives. A total of ten systems were reviewed and were otherwise negative. Past Medical & Surgical Medical Problems: (1) Asthma (2) Benign hypertension (3) Chest pain (4) Deep venous thrombosis (5) Diabetes mellitus (6) Dyslipidemia (7) Kidney stone (8) Sepsis Surgical Problems: (1) Cholecystectomy Family History Diabetes mellitus FH: gallbladder disease FH: heart disease FH: lung disease Hypertension Kidney stones Social History Smoking Status: Current Every Day Smoker Alcohol Use: none Drug Use: none Marital Status: single Housing Status: lives with family Occupation Status: unemployed Current/Historical Medications Scheduled Aspirin (Aspirin Ec), 81 MG PO DAILY Atorvastatin (Lipitor), 80 MG PO HS Clopidogrel (Plavix), 75 MG PO QAM Esomeprazole Magnesium (Nexium), 40 MG PO BID Fluconazole (Fluconazole), 400 MG PO QAM Gabapentin (Neurontin), 600 MG PO TID Lisinopril (Zestril), 10 MG PO DAILY Lorazepam (Lorazepam), 0.5 MG PO HS Metformin Hcl (Glucophage Ext Rel), 1,000 MG PO BID Nitroglycerin (Nitrostat), 0.4 MG UT PRN Prednisone (Prednisone), 0 PO UD Sertraline HCl (Sertraline HCl), 100 MG PO HS Trazodone Hcl (Desyrel), 150 MG PO HS Scheduled PRN Albuterol Hfa (Ventolin Hfa), 2 PUFFS INH Q6H PRN for SOB/Wheezing Allergies Coded Allergies: Lidocaine (Verified Allergy, Intermediate, HIVES, 08/29/17) Procaine (Verified Allergy, Intermediate, HIVES, 08/29/17) Penicillins (Verified Allergy, Mild, HAD NO PROBLEM WITH ZOSYN, 08/29/17) [place] (Verified Allergy, Mild, HIVES, 08/29/17) Cephalexin (Verified Adverse Reaction, Intermediate, YEAST INFECTIONS, 09/02) Egg (Verified Adverse Reaction, Intermediate, GI UPSET, 09/02/17) Azithromycin (Verified Adverse Reaction, Mild, STOMACH PAINS, 08/29/17) Tramadol (Verified Adverse Reaction, Unknown, SEIZURES, 09/02/17) Physical Exam Vital Signs Date Time Temp Pulse Resp B/P (MAP) Pulse Ox O2 Delivery O2 Flow Rate FiO2 08/29/17 19:44 112 18 105/64 97 08/29/17 19:18 112 18 105/64 97 Nasal Cannula 2.0 08/29/17 18:55 87 Room Air 08/29/17 18:40 116 18 103/59 93 Room Air 08/29/17 17:55 37.5 08/29/17 17:20 Room Air 08/29/17 17:02 135 08/29/17 16:30 38.4 146 20 118/69 95 Room Air Physical Exam GENERAL: Awake, alert, well-appearing, NAD HENT: Normocephalic, atraumatic. Patient is edentulous. EYES: Normal conjunctiva. Sclera non-icteric. PERRL. No anisocoria. NECK: Supple. No nuchal rigidity. FROM. RESPIRATORY: CTAB, no rhonchi, wheezing, crackles CARDIAC: Tachycardic rate, regular rhythm. Systolic ejection murmur. No RG ABDOMEN: Soft, NTND, BS+ MSK: No chest wall TTP, no LE edema NEURO: GCS 15, CN 2-12 intact, moves all 4s on command SKIN: No rash or jaundice noted. There is a 2 by 3 cm abscess over the distal volar right forearm, TTP, with fluctuance. Medical Decision & Procedures ER Provider Diagnostic Interpretation: Radiology results as stated below per my review and radiologist interpretation: SINGLE VIEW CHEST CLINICAL HISTORY: Fever. Sepsis. FINDINGS: An AP, portable, upright chest radiograph is compared to study dated 11/10/2016 and correlated with chest CT dated 11/09/2016. The heart appears enlarged. Mild pulmonary vascular congestion is suggested. Diffuse interstitial thickening and nodularity is noted. No lobar consolidation or large pleural effusion is identified. No pneumothorax is seen. The bony thorax is grossly intact. IMPRESSION: 1. The heart appears enlarged and mild pulmonary vascular congestion is suggested. 2. Diffuse interstitial thickening and nodularity is identified, which could represent a component of interstitial edema versus an infectious/inflammatory pneumonitis. Clinical correlation will be required. Electronically signed by: Ja Villanueva M.D. 08/29/2017 5:22 PM Dictated Date/Time: 08/29/2017 5:20 PM Laboratory Results 08/29/17 16:55 Red Blood Count 4.26, Mean Corpuscular Volume 86.9, Mean Corpuscular Hemoglobin 28.9, Mean Corpuscular Hemoglobin Concent 33.2, Mean Platelet Volume 10.4, Neutrophils (%) (Auto) 93.3, Lymphocytes (%) (Auto) 4.4, Monocytes (%) (Auto) 1.6, Eosinophils (%) (Auto) 0.2, Basophils (%) (Auto) 0.2, Neutrophils # (Auto) 11.97, Lymphocytes # (Auto) 0.57, Monocytes # (Auto) 0.21, Eosinophils # (Auto) 0.03, Basophils # (Auto) 0.03 08/29/17 16:55 Test 08/29/17 16:55 08/29/17 17:25 White Blood Count 12.85 K/uL (4.8-10.8) Red Blood Count 4.26 M/uL (4.2-5.4) Hemoglobin 12.3 g/dL (12.0-16.0) Hematocrit 37.0 % (37-47) Mean Corpuscular Volume 86.9 fL (80-100) Mean Corpuscular Hemoglobin 28.9 pg (25-34) Mean Corpuscular Hemoglobin Concent 33.2 g/dl (32-36) Platelet Count 254 K/uL (130-400) Mean Platelet Volume 10.4 fL (7.4-10.4) Neutrophils (%) (Auto) 93.3 % Lymphocytes (%) (Auto) 4.4 % Monocytes (%) (Auto) 1.6 % Eosinophils (%) (Auto) 0.2 % Basophils (%) (Auto) 0.2 % Neutrophils # (Auto) 11.97 K/uL (1.4-6.5) Lymphocytes # (Auto) 0.57 K/uL (1.2-3.4) Monocytes # (Auto) 0.21 K/uL (0.11-0.59) Eosinophils # (Auto) 0.03 K/uL (0-0.5) Basophils # (Auto) 0.03 K/uL (0-0.2) RDW Standard Deviation 50.0 fL (36.4-46.3) RDW Coefficient of Variation 15.6 % (11.5-14.5) Immature Granulocyte % (Auto) 0.3 % Immature Granulocyte # (Auto) 0.04 K/uL (0.00-0.02) Erythrocyte Sedimentation Rate 31 mm/hr (0-21) Prothrombin Time 12.0 SECONDS (9.0-12.0) Prothromb Time International Ratio 1.1 (0.9-1.1) Activated Partial Thromboplast Time 29.6 SECONDS (21.0-31.0) Partial Thromboplastin Ratio 1.1 Anion Gap 11.0 mmol/L (3-11) Est Creatinine Clear Calc Drug Dose 59.1 ml/min Estimated GFR () 55.2 Estimated GFR (Non- 47.6 BUN/Creatinine Ratio 8.6 (10-20) Calcium Level 8.8 mg/dl (8.5-10.1) Total Bilirubin 0.8 mg/dl (0.2-1) Direct Bilirubin 0.6 mg/dl (0-0.2) Aspartate Amino Transf (AST/SGOT) 39 U/L (15-37) Alanine Aminotransferase (ALT/SGPT) 26 U/L (12-78) Alkaline Phosphatase 124 U/L (45-117) C-Reactive Protein 10.80 mg/dl (0-0.29) Total Protein 6.8 gm/dl (6.4-8.2) Albumin 3.0 gm/dl (3.4-5.0) Venous Blood pH 7.38 (7.36-7.41) Venous Blood Partial Pressure CO2 34 mmHg (38.0-50.0) Venous Blood Partial Pressure O2 29 mmHg Venous Blood HCO3 20 mmol/L Venous Blood Oxygen Saturation < 60.0 % Venous Blood Base Excess -5.0 mEq/L Lactic Acid Level 5.0 mmol/L (0.4-2.0) Laboratory results reviewed by me Medications Administered Medications (Trade) Dose Ordered Sig/Bonny Route Start Time Stop Time Status Last Admin Dose Admin Ciprofloxacin/ Dextrose (Cipro / D5W) 400 mg NOW STAT IV 08/29/17 16:58 08/29/17 17:04 DC 08/29/17 17:28 400 MG Vancomycin HCl 1750 mg/Sodium Chloride 535 ml @ 200 mls/hr ONE STAT IV 08/29/17 17:37 08/29/17 20:17 08/29/17 17:52 200 MLS/HR Acetaminophen (Tylenol Tab) 1,000 mg NOW STAT PO 08/29/17 17:46 08/29/17 17:48 DC 08/29/17 17:52 1,000 MG Sodium Chloride 1,000 ml @ 999 mls/hr Q1H1M STAT IV 08/29/17 17:46 08/29/17 18:46 DC 08/29/17 17:30 999 MLS/HR Sodium Chloride 1,000 ml @ 999 mls/hr Q1H1M STAT IV 08/29/17 17:46 08/29/17 18:46 DC 08/29/17 17:00 999 MLS/HR Procedure Incision & Drainage Indication: Abscess. Location: Right volar forearm Verbal consent was obtained after the risks and benefits were explained, including but not limited to bleeding, scarring, infection, pain, and bone/joint /nerve damage. At this time, the risks of the procedure are less than the risks of NOT performing the procedure. A time out was taken and the correct patient and site identified. The skin was prepped with ChloraPrep and a sterile field set. The abscess cavity was entered with a number an 18 tor syringe, 3 cc expressed. A sterile dressing applied. Detailed wound care instructions and signs and symptoms of worsening infection reviewed with the patient. No complications and the patient tolerated the procedure well. ECG Per My Interpretation Indication: other (Sepsis) Rate (beats per minute): 115 Rhythm: sinus tachycardia Findings: other (Normal interval, normal axis, No STS changes, No TWI) ED Course 165: The patient was evaluated in room B3B. A complete history and physical exam was performed. 1835: I discussed the case with Dr. Aaliyah Huerta. She will evaluate the patient for further treatment. Medical Decision The patient is a 37 year old white female with a past medical history of asthma , hypertension, DVT, dyslipidemia, kidney stone, and diabetes who presents to the Emergency Room with complaints of a constant fever that she first noticed this afternoon at 1400, 3 hours ago. Nursing notes reviewed. Ancillary studies and prior records reviewed. Differential diagnosis: Etiologies such as viral syndrome, otitis, pharyngitis, pneumonia, influenza, meningitis, urinary tract infection, sepsis, bacteremia, as well as others were entertained. Patient was seen and evaluated at the bedside. Patient did present with tachycardia and fever.0 patient states that she had been started on some Bactrim the day before. Patient denies any history of alcohol drug abuse specifically IV drug abuse. Of note on exam the patient did have a systolic ejection murmur. The patient does have a notable right upper extremity abscess. Patient did have blood work completed along with IV fluids and broad-spectrum antibiotics. Patient did have an I&D of the abscess without complication. Patient did have an elevated lactate. White blood cell count was elevated. Patient's heart rate and fever improved with antipyretics as well as IV fluids and antibiotics. Patient initially was refusing to stay however after further discussion the patient was willing. Medication Reconcilliation Current Medication List: was personally reviewed by ma Blood Pressure Screening Patient's blood pressure: Normal blood pressure Consults Time Called: 1830 Consulting Physician: Dr. Aaliyah Huerta Returned Call: 1835 I discussed the case with Dr. Aaliyah Huerta. She will evaluate the patient for further treatment. Impression Primary Impression: Sepsis Additional Impressions: Abscess or cellulitis of wrist UTI (urinary tract infection) Hyperglycemia Lactic acid acidosis Critical Care I have personally spent greater than 75 minutes of critical care time in the direct management of this patient. This includes bedside care, interpretation of diagnostic studies, and testing, discussion with consultants, patient, and family members, and other required patient management activities. This 75 minutes is in excess of all separately billable procedures. Scribe Attestation The scribe's documentation has been prepared under my direction and personally reviewed by me in its entirety. I confirm that the note above accurately reflects all work, treatment, procedures, and medical decision making performed by me. Departure Information Dispostion Being Evaluated By Hospitalist Prescriptions Prednisone (Prednisone) 10 Mg Tab 0 PO UD, #12 TAB taper 19-27-30-20-10-10 Prov: Christiano Jennings M.D. 09/05/17 Fluconazole (Fluconazole) 100 Mg Tab 400 MG PO QAM, #44 TAB Take 4 pills (400 mg) daily. Do not take atorvastatin (Lipitor) while taking this medicine. Prov: Christiano Jennings M.D. 09/05/17 Referrals Irvin Iverson M.D. (PCP) Patient Instructions My [facility] Sepsis Post Crystalloid Evaluation Date: August 29, 2017 Time: 16:56 Capillary Refill Exam Normal (less than 2 seconds) Cardiopulmonary Evaluation Lung Exam: chest non-tender, lungs clear Heart Exam: + tachycardia, + systolic murmur Central Venous Evaluation Pulse Ox %: 93 Passive Leg Raise Positive (abnormal) Peripheral Pulse Evaluation Normal Skin Exam Diaphoretic Vitals Last Vital Signs Documentation Date Time Temp Pulse Resp B/P (MAP) Pulse Ox O2 Delivery O2 Flow Rate FiO2 08/29/17 19:44 112 18 105/64 97 08/29/17 19:18 2.0 08/29/17 17:55 37.5 Presence Of Severe Sepsis Problem Qualifiers Primary Impression: Sepsis Sepsis type: sepsis due to unspecified organism Qualified Codes: A41.9 - Sepsis, unspecified organism Additional Impressions: UTI (urinary tract infection) Urinary tract infection type: acute cystitis Hematuria presence: with hematuria Qualified Codes: N30.01 - Acute cystitis with hematuria
--- NOTE | 2017-09-07 19:08 | Discharge Summary ---
Discharge Summary Date of Service Discharge Summary Admission Date: August 29, 2017 at 21:04 Discharge Date: September 05, 2017 Discharge Disposition: Home Principal Diagnosis: severe sepsis secondary to Candidemia OTHER ACUTE / SECONDARY DIAGNOSES: abscess right wrist, Diana acute respiratory failure encephalopathy secondary to sepsis newly diagnosed hepatitis C . Secondary Diagnoses/Problems: Chronic and Resolved Medical Problems: (2) Asthma Status: Chronic (4) Coronary artery disease Status: Chronic (5) Deep venous thrombosis Status: Resolved (7) Diabetes mellitus, type 2 Status: Chronic (8) Dyslipidemia Status: Chronic (10) Hepatosplenomegaly Status: Chronic (11) History of DVT (deep vein thrombosis) Status: Chronic (12) Hypertension Status: Chronic (13) Kidney stone Status: Resolved Surgical Problems: (1) Cholecystectomy . Procedures: Cardiac monitoring IV medications IV fluids Endotracheal intubation Mechanical ventilation Echocardiogram CTA chest CT abdomen and pelvis Venous duplex lower extremities . Consultations: Critical Care Medicine Pulmonary Medicine Infectious Disease Ophthalmology General surgery . Pending Studies/Follow-Up: Please make referral for GI consultation regarding newly diagnosed hepatitis C. . Medication Reconciliation New Medications: Prednisone (Prednisone) 10 Mg Tab 0 PO UD, #12 TAB taper [id number] Fluconazole (Fluconazole) 100 Mg Tab 400 MG PO QAM, #44 TAB Take 4 pills (400 mg) daily. Do not take atorvastatin (Lipitor) while taking this medicine. Continued Medications: Albuterol Hfa (Ventolin Hfa) 200 Puffs/06886 Mcg Aers 2 PUFFS INH Q6H PRN for SOB/Wheezing, #1 INHALER Aspirin (Aspirin Ec) 81 Mg Tab 81 MG PO DAILY TAKE THIS MED ON A FULL STOMACH. Atorvastatin (Lipitor) 80 Mg Tab 80 MG PO HS, TAB Hold for 2 weeks, then restart after you have finished taking fluconazole (Diflucan). Clopidogrel (Plavix) 75 Mg Tab 75 MG PO QAM, TAB Esomeprazole Magnesium (Nexium) 40 Mg Capcr 40 MG PO BID, CAP Gabapentin (Neurontin) 600 Mg Tab 600 MG PO TID, TAB Lisinopril (Zestril) 10 Mg Tab 10 MG PO DAILY, TAB Lorazepam (Lorazepam) 0.5 Mg Tab 0.5 MG PO HS Metformin Hcl (Glucophage Ext Rel) 1,000 Mg Tab 1000 MG PO BID, TAB Nitroglycerin (Nitrostat) 0.4 Mg Tab 0.4 MG UT PRN, BTL NEEDED FOR CHEST PAIN : ONE TABLET UNDER THE TONGUE EVERY 5 MINUTES UP TO 3 DOSES. Sertraline HCl (Sertraline HCl) 100 Mg Tab 100 MG PO HS Trazodone Hcl (Desyrel) 150 Mg Tab 150 MG PO HS Admission Information HPI (per Admitting provider): This is a 37-year-old female with past medical history of poorly controlled diabetes, coronary artery disease status post PTCA, hypertension, dyslipidemia, asthma history of lower extremity DVT off anticoagulation Presented to ER with complaint of fever chills Patient noticed a small boil/abscess on her right wrist which has progressively got larger , denies of any trauma or insect bite Was seen at [facility]- ordered p.o. Bactrim she took 2 tablets did not had any improvement of the pain and swelling on right wrist Developed cough/ fever /chills/ headache In ER patient was febrile/tachycardic/hypotensive/leukocytosis of 12 K Had I & D done of right wrist abscess- drainage of pus Physical Exam (per Admitting): General Appearance: no apparent distress Head: normocephalic, atraumatic Eyes: sclerae normal Neck: thyroid normal, no JVD Respiratory/Chest: no respiratory distress, no accessory muscle use, + crackles Cardiovascular: + tachycardia, + systolic murmur Abdomen/GI: normal bowel sounds, non tender, soft Extremities/Musculoskelatal: + pertinent finding (2.3 cm abscesses in her right wrist/with surrounding erythema and tenderness) Neurologic/Psych: no motor/sensory deficits, alert, oriented x 3 Hospital Course SEVERE SEPSIS / CANDIDEMIA / ABSCESS RIGHT WRIST Met criteria for sepsis per Sepsis 1 definition and current CMS guidelines. Had abscess right wrist that was I&D'd. Serum lactate was 5.0. Mild hypotension with early systolic BPs in 90s and MAPs 67-76. Blood cultures obtained. Received fluid resuscitation and broad-spectrum antibiotics. 1 out of 2 blood cultures grew yeast, ID pending. ID consulted. Echo did not show any evidence of endocarditis. Funduscopic eye exam by Ophthalmology did not reveal any evidence of fungal and endophthalmitis. Chest x-ray showed bilateral infiltrates that have improved Influenza A/B PCR negative. Antimicrobial coverage narrowed to caspofungin for fungemia. Right wrist abscess incised and drained. Gram stain showed many WBC's, no organisms. Culture from abscess growing yeast. No apparent need for anti-bacterial coverage. Discharge on fluconazole 400 mg daily x 14 days. ACUTE HYPOXIC RESPIRATORY FAILURE Underlying asthma. Chest x-rays demonstrated bilateral infiltrates. Worsening oxygenation required intubation and mechanical ventilation. Influenza A/B PCR negative. Initially received broad-spectrum antibiotic coverage for pulmonary pathogens. Bronchoscopy performed 08/30/17-cultures negative. Antibacterial agents subsequently discontinued. Pulmonary status improved. Weaned and extubated. Oxygenating well on room air at time of discharge. CORONARY ARTERY DISEASE Continue aspirin, metoprolol, statin. DM TYPE 2 Not well controlled. Hemoglobin A1c 9.7. Pharmacy consulted for glycemic management. Fingerstick blood sugars as high as 340. Blood sugar this morning = 108. Management per protocol. Wean steroids as tolerated. Discharged on usual regimen. ANEMIA Hemoglobin at time of admission was 12.3 and fell as low as 8 8. Anemia probably multifactorial, secondary to infection, multiple phlebotomies, etc. No apparent GI bleeding. Hemoglobin today = 10.3. Follow. + HEP C AB Hepatitis c antibody screen positive; RNA confirmation positive as well. Discussed with GI. Will need follow-up with GI. VTE PROPHYLAXIS SQ enoxaparin. Ambulating. DISPOSITION Discharged to home. Family medicine follow-up with Dr. Iverson. Total time spent on discharge = 45 min. This includes examination of the patient, discharge planning, medication reconciliation, and communication with other providers. . Discharge Instructions Date of Service September 05, 2017. Admission Reason for Admission: sepsis, trouble breathing . Discharge Discharge Diagnosis / Problem: sepsis (severe infection) due to yeast in bloodstream Discharge Goals Goal(s): Improve disease control Activity Recommendations Activity Limitations: resume your previous activity . Instructions / Follow-Up Instructions / Follow-Up APPOINTMENTS: FAMILY MEDICINE 09/11/2017 10:40 AM Irvin Iverson MD OTHER INSTRUCTIONS: Apply Bacitracin to incision right wrist daily and cover with sterile gauze dressing. Cultures from your blood and abscess on right wrist grew yeast. Take fluconazole (Diflucan) 400 mg daily for 11 days to complete treatment of yeast infection. Take prednisone as directed: 3 pills (30 mg) for 2 days 2 pills (20 mg) for 2 days 1 pill (10 mg) for 2 days then stop Please do not smoke. Please discuss with Dr. Iverson if you need guidance or assistance. Please do not drink excessive amounts of alcohol. Please do not use any recreation drugs. Seek medical attention if you have: * temperature above 101 * chest pain or trouble breathing * abdominal pain, nausea, vomiting * diarrhea, dark stools or bloody stools * abscess developing again; redness around incision; drainage from incision; poor healing of incision * any unanswered questions or concerns Call 911 if symptoms are severe. Call if you have any questions or problems. My cell # is [phone]. You can also reach a [facility] hospitalist on duty at [facility] 24 hours a day by calling [phone]. Please take good care of yourself. Christiano Jennings . Current Hospital Diet Patient's current hospital diet: Diabetes Type 2 Diet, AHA Diet (Heart Healthy) Discharge Diet Recommended Diet: AHA Diet (Heart Healthy), Diabetes Type 2 Diet Procedures Procedures Performed: Incision and drainage on abscess right arm Pending Studies Studies pending at discharge: no Laboratory Results Hemoglobin A1c Test 08/29/17 16:55 Range/Units Estimated Average Glucose 232 mg/dl Hemoglobin A1c 9.7 H 4.5-5.6 % Medical Emergencies . Who to Call and When: Medical Emergencies: If at any time you feel your situation is an emergency, please call 911 immediately. . Non-Emergent Contact Non-Emergency issues call your: Primary Care Provider, Hospital Doctor . . "Provider Documentation" section prepared by Christiano Jennings. . [place] Drug Monitoring Program Search Results: patient reviewed within database, no issues identified Additional Copies To Torie Avalos,DO
== END 2017-09-05 21:00 | disposition home or self-care (01) | DRG 853 ==
LOC: C.EDB 16:25 → C.MSICU 19:10 → UNDOADMIN 19:10 → ENRESERV 19:18 → C.MSICU 19:45 → ENRESERV 09-04 13:51 → C.MS2W 09-04 15:08
PROVIDERS: ADMIT Hospitalist; ATTEND Hospitalist
PROC: 0J9G3ZZ Drainage of Right Lower Arm Subcutaneous Tissue and Fascia, Percutaneous Approach (ICD-10-PCS; principal; 2017-08-29)
PROC: 03HC33Z Insertion of Infusion Device into Left Radial Artery, Percutaneous Approach (ICD-10-PCS; 2017-08-30)
PROC: 0BH17EZ Insertion of Endotracheal Airway into Trachea, Via Natural or Artificial Opening (ICD-10-PCS; 2017-08-30)
PROC: 03H63DZ Insertion of Intraluminal Device into Left Axillary Artery, Percutaneous Approach (ICD-10-PCS; 2017-08-30)
PROC: 5A1945Z Respiratory Ventilation, 24-96 Consecutive Hours (ICD-10-PCS; 2017-08-30)
PROC: 0B9D8ZX Drainage of Right Middle Lung Lobe, Via Natural or Artificial Opening Endoscopic, Diagnostic (ICD-10-PCS; 2017-08-30)
PROC: 0D967ZZ Drainage of Stomach, Via Natural or Artificial Opening (ICD-10-PCS; 2017-08-31)
PROC: 0J9G0ZZ Drainage of Right Lower Arm Subcutaneous Tissue and Fascia, Open Approach (ICD-10-PCS; 2017-09-04)
DX: A41.9 Sepsis, unspecified organism (principal); J18.9 Pneumonia, unspecified organism; J96.01 Acute respiratory failure with hypoxia; J96.02 Acute respiratory failure with hypercapnia; L03.113 Cellulitis of right upper limb; N17.9 Acute kidney failure, unspecified; E87.1 Hypo-osmolality and hyponatremia; L02.413 Cutaneous abscess of right upper limb; B49 Unspecified mycosis; R65.20 Severe sepsis without septic shock; E11.65 Type 2 diabetes mellitus with hyperglycemia; E86.0 Dehydration; I95.9 Hypotension, unspecified; I10 Essential (primary) hypertension; I25.10 Atherosclerotic heart disease of native coronary artery without angina pectoris; R51 Headache; E78.5 Hyperlipidemia, unspecified; F17.200 Nicotine dependence, unspecified, uncomplicated; D64.9 Anemia, unspecified; J45.909 Unspecified asthma, uncomplicated; Z79.02 Long term (current) use of antithrombotics/antiplatelets; Z79.82 Long term (current) use of aspirin; Z79.84 Long term (current) use of oral hypoglycemic drugs; Z79.899 Other long term (current) drug therapy; Z95.5 Presence of coronary angioplasty implant and graft; Z83.3 Family history of diabetes mellitus; Z88.0 Allergy status to penicillin; Z88.1 Allergy status to other antibiotic agents; Z88.6 Allergy status to analgesic agent; Z91.012 Allergy to eggs; Z91.018 Allergy to other foods; Z86.718 Personal history of other venous thrombosis and embolism

== ENCOUNTER 2017-09-06 20:59 | Emergency (ER) | payer OTHER ==
[~2017-09-06] VITALS: Ht 162.6 cm; Wt 86.8 kg
[~2017-09-06 20:59] MED LIST changes: -ACET-1256 PO; +ATV5X PO; +DFL100 PO; -ETOMIDATE 2 MG/ML 20 ML VIAL IV ONE; -FENTANYL CITRATE INJ 50 MCG/1 ML 2 ML VIAL IV ONE; -METO25TA3 PO; -MIDAZOLAM HCL 5 MG/ML 2ML VIAL IV ONE; +PRD10 PO; +SERT1TAB92 PO; -SODIUM CHLORIDE 0.9% 10ML FLUSH IV ONE; -SUCCINYLCHOLINE CHLORIDE 20 MG/ML 10 ML VIAL IV ONE; +TRAZ1TAB52 PO
[2017-09-06 21:06] VITALS: TEMP 36.9; Ht 162.6 cm; Wt 86.8 kg
[2017-09-06] MEDS ORDERED: FLUCONAZOLE 100 MG TAB PO STA (21:21)
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
--- NOTE | 2017-09-06 22:09 | DIAGNOSTIC IMAGING REPORT ---
HEAD CT NONCONTRAST CT DOSE: 537.48 mGy.cm HISTORY: SEIZURE TECHNIQUE: Multiaxial CT images of the head were performed without the use of intravenous contrast. Automated exposure control was utilized for this study. A dose lowering technique was utilized adhering to the principles of ALARA. Comparison: Head CT 05/26/2015. Findings: The paranasal sinuses and mastoid air cells are clear. The calvarium and skull base are intact. The ventricles and sulci are within normal limits. There is no mass, hematoma, midline shift, or acute infarct. Impression: No acute intracranial abnormality. Electronically signed by: Arnol Kenney M.D. 09/06/2017 10:08 PM Dictated Date/Time: 09/06/2017 10:01 PM
[2017-09-06 22:37] LABS: BASO % 0.2 %; BASO ABS # 0.04 K/uL (0-0.2); EOS % 1.1 %; EOS ABS # 0.21 K/uL (0-0.5); HEMATOCRIT 32.7 % (37-47); HEMOGLOBIN 10.6 g/dL (12.0-16.0); IG# 0.28 K/uL (0.00-0.02); LYMPH % 18.5 %; LYMPH ABS # 3.54 K/uL (1.2-3.4); MEAN CELL VOLUME 87.9 fL (80-100); MEAN CORPUSCULAR HEMOGLOBIN 28.5 pg (25-34); MEAN CORPUSCULAR HGB CONC 32.4 g/dl (32-36); MEAN PLATELET VOLUME 10.1 fL (7.4-10.4); MONO % 6.3 %; NEUT % 72.4 %; NEUT ABS # 13.82 K/uL (1.4-6.5); PLATELET COUNT 379 K/uL (130-400); RED CELL DISTRIBUTION WIDTH CV 15.6 % (11.5-14.5); RED CELL DISTRIBUTION WIDTH SD 49.6 fL (36.4-46.3); WHITE BLOOD COUNT 19.09 K/uL (4.8-10.8)
[2017-09-06 22:47] LABS: INR 1.1 (0.9-1.1)
[2017-09-06 22:57] LABS: CALCIUM 8.9 mg/dl (8.5-10.1); CREATININE 0.84 mg/dl (0.60-1.20); PHOSPHORUS 3.8 mg/dl (2.5-4.9); POTASSIUM 3.6 mmol/L (3.5-5.1)
[2017-09-06] MEDS ORDERED: MAGNESIUM OXIDE 400 MG TAB PO STA (23:18)
[2017-09-06] MEDS ORDERED: ACETAMINOPHEN 500 MG TAB ONE (23:23)
[2017-09-06 23:50] VITALS: BP 125/82; PULSE 79; O2SAT 97
== END 2017-09-06 23:52 | disposition home or self-care (01) ==
LOC: EDBD 20:59 → C.EDC 21:01
DX: R56.9 Unspecified convulsions (principal); E83.42 Hypomagnesemia; K08.109 Complete loss of teeth, unspecified cause, unspecified class; F17.200 Nicotine dependence, unspecified, uncomplicated; Z71.6 Tobacco abuse counseling; B49 Unspecified mycosis; E78.5 Hyperlipidemia, unspecified; I10 Essential (primary) hypertension; Z79.02 Long term (current) use of antithrombotics/antiplatelets; Z79.82 Long term (current) use of aspirin; E11.9 Type 2 diabetes mellitus without complications; Z79.84 Long term (current) use of oral hypoglycemic drugs; Z86.718 Personal history of other venous thrombosis and embolism; Z87.09 Personal history of other diseases of the respiratory system; Z86.69 Personal history of other diseases of the nervous system and sense organs; Z88.8 Allergy status to other drugs, medicaments and biological substances; Z88.0 Allergy status to penicillin; Z88.1 Allergy status to other antibiotic agents; Z91.018 Allergy to other foods; Z91.012 Allergy to eggs; Z88.5 Allergy status to narcotic agent

== ENCOUNTER 2018-06-01 15:58 | Observation (INO) ==
[2018-06-01] MEDS ORDERED: KETOROLAC 30 MG/ML VIAL IV STA (16:14)
--- NOTE | 2018-06-01 16:48 | XRay Report ---
XR chest 1V portable CLINICAL HISTORY: Chest Pain dyspnea COMPARISON STUDY: 05/30/2018 FINDINGS: The bones soft tissues and hemidiaphragms are normal. The cardiomediastinal silhouette is n ormal. The lungs are clear. The pulmonary vasculature is normal. IMPRESSION: Negative chest. The above report was generated using voice recognition software. It may contain grammatical, syntax or spelling errors. Electronically signed by: Dale Art M.D. 06/01/2018 4:46 PM
[2018-06-01 16:49] LABS: Basophils # (auto) 0.04 K/uL (0-0.2); Basophils % (auto) 0.4 %; Eosinophils # (auto) 0.28 K/uL (0-0.5); Eosinophils % (auto) 2.5 %; Hematocrit (blood only) 37.3 % (37-47); Hemoglobin 12.1 g/dL (12.0-16.0); Immature Granulocytes # (auto) 0.01 K/uL (0.00-0.02); Immature Granulocytes % (auto) 0.1 %; Lymphocytes # (auto) 3.67 K/uL (1.2-3.4); Lymphocytes % (auto) 32.7 %; Mean Corpuscular Hgb Conc 32.4 g/dL (32-36); Mean Platelet Volume 10.9 fL (7.4-10.4); Monocytes # (auto) 0.74 K/uL (0.11-0.59); Monocytes % (auto) 6.6 %; Neutrophils # (auto) 6.48 K/uL (1.4-6.5); Neutrophils % (auto) 57.7 %; Platelet Count 277 K/uL (130-400); RDW Coefficient of Variation 15.7 % (11.5-14.5); RDW Standard Deviation 50.4 fL (36.4-46.3); Red Blood Count 4.24 M/uL (4.2-5.4); White Blood Count 11.22 K/uL (4.8-10.8)
[2018-06-01] MEDS ORDERED: NITROGLYCERIN 2% OINTMENT 30GM TUBE EXT ONE (16:58)
[2018-06-01 17:06] LABS: BUN Creatinine Ratio 14.2 (10-20); Blood Urea Nitrogen 11 mg/dl (7-18); Calcium 9.2 mg/dl (8.5-10.1); Carbon Dioxide 22 mmol/L (21-32); Chloride 107 mmol/L (98-107); Creatinine Clr Calc Pharmacy 95.8 ml/min; Est GFR (African American) 105.3; Est GFR (Non-African American) 90.8; Glucose 103 mg/dl (70-99); Potassium 4.2 mmol/L (3.5-5.1); Sodium 141 mmol/L (136-145)
--- NOTE | 2018-06-01 19:01 | History & Physical Report ---
Date of Service June 01, 2018 Assessment & Plan (1) Chest pain: (2) Coronary artery disease: Hx CAD, NSTEMI in 2017 s/p cardiac cath and 2 ROJAS to L circumflex and 1 ROJAS to ramus with known 40-50% plaque to LAD Pt reports intermittent L sided CP with radiation to L arm and neck past several days. Reports had some SOB today. Denies N/V, diaphoresis. Has had 3 ER visits for CP over the past couple of weeks. Today was given nitro x 3 and ASA in detention. In ER vitals stable. Has 1" nitropaste and no further CP. EKG without ST elevation, negative POC troponin, negative POC d-dimer. R/O ACS. Risk factors: CAD, HTN, hyperlipidemia, DM, obesity -Monitor Vitals -Repeat EKG in am -Will trend troponin -Echo -lipid panel in am, continue statin. Pt reports was not receiving statin in detention -continue plavix -continue aspirin, metoprolol -Nitropaste -npo after midnight -Cardiology consult appreciate recommendations (3) Diabetes mellitus, type 2: A1c: 9.7 on 08/2017 Pt was insulin dependent, now off insulin -hold glipizide, metformin while in hospital -Novolog, Lantus sliding scale per protocol (4) Hypertension: Stable. SBP: 116 -continue metoprolol -will hold am lisinopril and reassess BP as has nitropaste currently (5) Dyslipidemia: -lipid panel in am -atorvastatin. pt reports was not receiving while in detention (6) Seizure disorder: Denies recent seizure -continue keppra (7) Asthma: No acute exacerbation -albuterol neb prn (8) Depression: -continue buspirone, lexapro (9) GERD (gastroesophageal reflux disease): -continue PPI, H2 vijay (10) History of drug abuse: Denies recent drug abuse DVT Prophylaxis -Heparin SQ Full Code Follows with Dr Iverson for routine care Currently incarcerated [facility] Pt was seen with Dr Moon. See addendum History of Present Illness Chief Complaint: CP Primary Care Provider: [facility] Dr Iverson Pt is 38 y/o F with PMH CAD -NSTEMI in 2017 s/p cardiac cath and 2 ROJAS to L circumflex and 1 ROJAS to ramus with known 40-50% plaque to LAD, HTN, dyslipidemia , seizure disorder, GERD, asthma, Hepatitis C, depression, h/o drug abuse presented to ER from [facility] with c/o CP. This is pt's 3rd ER visit for CP, most recent being on 05/30/18. Pt reports continued intermittent L- sided chest pain with radiation to L arm and L neck that has been occurring 1-3 times a day and lasts for approx 5 minutes. Usually happens at rest. States today had SOB with CP. Denies dizziness, nausea or diaphoresis. Today was given 3 nitro and ASA in detention with some reported relief of CP. In ER has nitropaste and is CP free. Pt states hasn't been receiving her ASA or atorvastatin while in detention. Denies fever/chills, N/V/D/C, SUTTON, dizziness, syncope, vision changes , neck pain, orthopnea, palpitations, cough, sore throat, choking, otalgia, rhinorrhea, abdominal pain, paresthesias, weakness, extremity edema, rashes, urinary symptoms. Denies recent drug or ETOH use. Hx echo 08/2017: EF: 55-60% Hx STEVEN 08/2017: no evidence for endocarditis or vegitation. 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 Allergies Allergy/AdvReac Type Severity Reaction Status Date / Time lidocaine Allergy Intermediate HIVES Verified 06/01/18 16:22 procaine Allergy Intermediate HIVES Verified 06/01/18 16:22 Penicillins Allergy Mild HAD NO Verified 06/01/18 16:22 PROBLEM WITH ZOSYN strawberry Allergy Mild HIVES Verified 06/01/18 16:22 cephalexin AdvReac Intermediate YEAST Verified 06/01/18 16:22 INFECTIONS egg AdvReac Intermediate GI UPSET Verified 06/01/18 16:22 mivacurium AdvReac Mild STOMACH Verified 06/01/18 16:22 PAINS tramadol AdvReac Unknown SEIZURES Verified 06/01/18 16:22 azithromycin AdvReac Unknown Verified 06/01/18 16:22 Home Medications Home Medications Medication Instructions Recorded Confirmed Type clopidogrel [Plavix] 75 mg PO DAILY 05/30/18 06/01/18 History escitalopram oxalate [Lexapro] 20 mg PO DAILY 05/30/18 06/01/18 History glipizide 5 mg PO DAILY 05/30/18 06/01/18 History ibuprofen 400 mg PO BID PRN 05/30/18 06/01/18 History levetiracetam [Keppra] 500 mg PO BID 05/30/18 06/01/18 History lisinopril [Zestril] 10 mg PO DAILY 05/30/18 06/01/18 History metformin 1,000 mg PO BID 05/30/18 06/01/18 History omeprazole 20 mg PO BID 05/30/18 06/01/18 History ranitidine HCl 300 mg PO HS PRN 05/30/18 06/01/18 History trazodone 250 mg PO HS 05/30/18 06/01/18 History buspirone 30 mg PO BID 06/01/18 06/01/18 History trazodone 25 mg PO DAILY 06/01/18 06/01/18 History aspirin 81 mg PO DAILY 30 Days #30 tab 06/03/18 Rx atorvastatin 80 mg PO PM 30 Days #0 tab 06/03/18 06/01/18 Rx metoprolol tartrate 50 mg PO BID 30 Days #60 tab 06/03/18 Rx Past Med/Surg History Medical History History of drug abuse (Chronic) Depression (Chronic) GERD (gastroesophageal reflux disease) (Chronic) Seizure disorder (Chronic) Coronary artery disease (Chronic) Diabetes mellitus, type 2 (Chronic) Hypertension (Chronic) Hepatitis C (Chronic) "Antibiotic screen positive, quantitative RNA positive 08/30/17" Dyslipidemia (Chronic) History of renal calculi (Chronic) Asthma (Chronic) History of DVT (deep vein thrombosis) (Chronic) Hepatosplenomegaly (Chronic) Acute hypoxemic respiratory failure (Resolved) Fungemia (Resolved) Soft tissue abscess of suprapubic region (Resolved) Pneumonitis (Resolved) Sepsis (Resolved) CAD (coronary artery disease) DVT (deep venous thrombosis) Diabetes Surgical History History of lumbar spinal fusion (Resolved) Hx of tonsillectomy (Resolved) History of carpal tunnel surgery (Resolved) History of cardiac cath (Resolved) 2017- 1 ROJAS to ramus, 2 ROJAS to L circumflex. 40-50% plaque to LAD Status post cholecystectomy (Chronic) Family History Other Diabetes Heart disease Hypertension Kidney stones Seizures Social History Current Living Situation: Other Current Living Situation Comment: [facility] Feels Safe at Home: Yes Safety Concerns: Feels Safe At This Time Smoking Status: Current every day smoker Tobacco Type: cigarettes Hx Alcohol Use: No Hx Substance Use: No Beliefs That Will Affect Care: None Preferred Language: Frisian Review of Systems All systems reviewed & are unremarkable except as noted in HPI & below Physical Exam 2 Vital Signs (Past 24 Hours): Last Vital Signs Pulse 85 06/01/18 17:52 Resp 20 06/01/18 17:52 BP 116/73 06/01/18 17:52 Pulse Ox 99 06/01/18 17:52 Physical Exam: General: no distress, obese, appears older than stated age Head: normocephalic, atraumatic Eyes: PERRL, EOM's intact, conjunctiva non-injected, anicteric ENT: normal inspection external ears, nose, mucous membranes moist Neck: supple, trachea midline, non-tender Lungs: clear, no respiratory distress, no wheezing/rhonchi/rales. chest non- tender to palpation CV: RRR, +systolic murmur, no JVD, no pretibial edema Abd: normal BS, soft, non-tender Ext: no cyanosis, no calf tenderness Neuro: A&O x 3, no focal deficits noted, normal affect Skin: warm, dry Results & Data Laboratory Results Short CBC 06/01/18 Range/Units 16:40 WBC 11.22 H (4.8-10.8) K/uL Hgb 12.1 (12.0-16.0) g/dL Hct 37.3 (37-47) % Plt Count 277 (130-400) K/uL BMP 06/01/18 16:40 Sodium 141 Potassium 4.2 Chloride 107 Carbon Dioxide 22 BUN 11 Creatinine 0.81 Glucose 103 H Calcium 9.2 POC D-DIMER: 149 (0-450) POC TROPONIN: <0.03 (0-0.045) Diagnostic Findings CXR: IMPRESSION: Negative chest. ECG Rhythm: normal sinus Additional Comments: T wave inversion III, previous EKG 05/30/18 had flattening t wave III Supervising Physician Co-Signing Physician Notes Pt was seen and examined. Agreed with Trice LAM exam, assessment and plan. Present with intermittent Left sided chest pain intermittent with radiation to L arm and neck past several days. Currently denies any chest pain, palpitation and sob. EKG showed no ischemic changes. Initial troponin negative. Will continue monitor in telemetry. Check echo and follow troponin. Will consult cardiology for possible cardiac cath in am. Will make NPO after midnight. MD Sarai _ (1) Chest pain Chest pain type: other chest pain Ischemic chest pain type: Qualified Code( s): R07.89 - Other chest pain; R07.8 - Other chest pain
--- NOTE | 2018-06-01 19:32 | Emergency Department Note ---
Entered by Yuan Lott acting as a scribe for History of Present Illness General Chief complaint: Chest Pain Stated complaint: CHEST PAIN Source: patient History of Present Illness Onset (ago): day(s) 2 Location: chest (left-sided) Radiation: neck Pain Consistency: + intermittent Quality: + dull Associated symptoms: + other (Positive for SOB, diaphoresis, and leg cramping. Negative for fever, cough, lightheadedness, and leg swelling.) The patient is a 38 year old female who presents to the emergency department with complaints of intermittent, dull, left-sided, chest pain beginning two days ago. The patient states that she has been having intermittent left-sided chest pain for the last two days that worsened today. She notes that her chest pain is dull and now radiates into her neck. She reports that movement and exertion do not make her symptoms worse. The patient states that she was in the emergency department twice within the last month. She notes that her current pain is different than her previous pain as her pain was sharp at that time. She also complains of mild SOB, diaphoresis, and leg cramping. She reports that her leg cramping started two days ago when she started having her intermittent chest pain. She denies any fever, cough, lightheadedness, and leg swelling. The patient states that she had three stents placed in 2017. She notes that she is currently in group home and she reports that she is not very active there. Home Medications Home Medications Medication Instructions Recorded Confirmed Type clopidogrel [Plavix] 75 mg PO DAILY 05/30/18 06/01/18 History escitalopram oxalate [Lexapro] 20 mg PO DAILY 05/30/18 06/01/18 History glipizide 5 mg PO DAILY 05/30/18 06/01/18 History ibuprofen 400 mg PO BID PRN 05/30/18 06/01/18 History levetiracetam [Keppra] 500 mg PO BID 05/30/18 06/01/18 History lisinopril [Zestril] 10 mg PO DAILY 05/30/18 06/01/18 History metformin 1,000 mg PO BID 05/30/18 06/01/18 History metoprolol tartrate 25 mg PO DAILY 05/30/18 06/01/18 History omeprazole 20 mg PO BID 05/30/18 06/01/18 History ranitidine HCl 300 mg PO HS PRN 05/30/18 06/01/18 History trazodone 250 mg PO HS 05/30/18 06/01/18 History aspirin 81 mg PO DAILY 06/01/18 06/01/18 History atorvastatin 80 mg PO PM 06/01/18 06/01/18 History buspirone 30 mg PO BID 06/01/18 06/01/18 History trazodone 25 mg PO DAILY 06/01/18 06/01/18 History Allergies Allergy/AdvReac Type Severity Reaction Status Date / Time lidocaine Allergy Intermediate HIVES Verified 06/01/18 16:22 procaine Allergy Intermediate HIVES Verified 06/01/18 16:22 Penicillins Allergy Mild HAD NO Verified 06/01/18 16:22 PROBLEM WITH ZOSYN strawberry Allergy Mild HIVES Verified 06/01/18 16:22 cephalexin AdvReac Intermediate YEAST Verified 06/01/18 16:22 INFECTIONS egg AdvReac Intermediate GI UPSET Verified 06/01/18 16:22 mivacurium AdvReac Mild STOMACH Verified 06/01/18 16:22 PAINS tramadol AdvReac Unknown SEIZURES Verified 06/01/18 16:22 azithromycin AdvReac Unknown Verified 06/01/18 16:22 Past Med/Surg History Medical History History of drug abuse (Chronic) Depression (Chronic) GERD (gastroesophageal reflux disease) (Chronic) Seizure disorder (Chronic) Coronary artery disease (Chronic) Diabetes mellitus, type 2 (Chronic) Hypertension (Chronic) Hepatitis C (Chronic) "Antibiotic screen positive, quantitative RNA positive 08/30/17" Dyslipidemia (Chronic) History of renal calculi (Chronic) Asthma (Chronic) History of DVT (deep vein thrombosis) (Chronic) Hepatosplenomegaly (Chronic) Acute hypoxemic respiratory failure (Resolved) Fungemia (Resolved) Soft tissue abscess of suprapubic region (Resolved) Pneumonitis (Resolved) Sepsis (Resolved) CAD (coronary artery disease) DVT (deep venous thrombosis) Diabetes Surgical History History of lumbar spinal fusion (Resolved) Hx of tonsillectomy (Resolved) History of carpal tunnel surgery (Resolved) History of cardiac cath (Resolved) 2017- 1 ROJAS to ramus, 2 ROJAS to L circumflex. 40-50% plaque to LAD Status post cholecystectomy (Chronic) Family History Other Diabetes Heart disease Hypertension Kidney stones Seizures Social History Current Living Situation Comment: Currently resides in the local group home Feels Safe at Home: Yes Smoking Status: Former smoker Hx Alcohol Use: No Hx Substance Use: Yes (hx cocaine, meth, oxycodone in past. Denies recent drug use. 01/2018 - rehab) Communication Ability: Effective Visual Impairment: No Limitations Hearing Ability: Normal Review of Systems See HPI for pertinent positives & negatives. and A total of 10 systems reviewed and were otherwise negative Physical Exam Vital Signs Vital Signs - 24 hr 06/01/18 16:06 06/01/18 16:51 06/01/18 17:52 Temperature Source Oral Sepsis Recent Fever Within 48 Hours No Sepsis Action Taken by Nursing No Action Required Pulse Rate 85 Pulse Rate [Apical] 85 Respiratory Rate 20 20 Respiratory Effort / Characteristics Non-Labored Non-Labored Respiratory Depth Normal Blood Pressure 121/71 Blood Pressure [Right Arm] 116/73 Blood Pressure Mean 87 Blood Pressure Mean [Right Arm] 87 Pulse Oximetry 100 99 Oxygen Delivery Method Room Air Room Air Oxygen Flow Rate 96 Constitutional: Vital signs reviewed. Eyes: Pupils are equal round reactive to light. Conjunctiva are noninjected. ENT: Pharynx is clear without erythema or exudate. Mucous membranes are moist. Neck supple without meningeal signs. Respiratory: Clear to auscultation bilaterally. Breath sounds are equal bilaterally. Cardiovascular: Regular rate and rhythm. No rubs or gallops. GI: Soft, nondistended and nontender. Bowel sounds are present. Musculoskeletal: No peripheral edema. No lower extremity tenderness. Integumentary: No cyanosis. Neurological: The patient is awake and alert. No focal deficits. Psychiatric: Normal affect. Course 160: Past medical records reviewed. The patient was evaluated in room A10, and a complete history and physical examination were performed. 1648: I reevaluated and updated the patient. She states that her pain has improved but is still there. 1802: I rechecked the patient. Her chest pain is much better after receiving nitroglycerine. 1805: Upon reevaluation, the patient is stable. I discussed the results and treatment plan with the patient. She verbalizes understanding and agreement. I discussed the patient's case with [facility]. The patient will be evaluated for further management and care. Consultations Consultation #1: I reviewed the patient's case with [facility]. She will evaluate the patient for further management. Time: 18:05 Administered Medications Discontinued Medications Ketorolac Tromethamine (Toradol) 10 mg IV NOW STA Stop: 06/01/18 16:15 Last Admin: 06/01/18 16:57 Dose: 10 mg Nitroglycerin (Nitro-Bid 2%) 1 inch EXT NOW ONE Stop: 06/01/18 16:59 Last Admin: 06/01/18 17:52 Dose: 18 inch Medical Decision Making Differential Diagnosis Differential diagnoses include: pleurisy, unstable angina, MN, PE, pneumothorax , and malingering pain. Medical Records Attestation: I reviewed the patient's medical records. Home Medications Current Medication List: was personally reviewed by me Laboratory Data Attestation: I reviewed the patient's lab results. Result diagrams: 06/01/18 16:40 06/01/18 16:40 Lab Results 06/01/18 06/01/18 06/01/18 Range/Units 16:40 16:40 16:46 WBC 11.22 H (4.8-10.8) K/uL RBC 4.24 (4.2-5.4) M/uL Hgb 12.1 (12.0-16.0) g/dL Hct 37.3 (37-47) % MCV 88.0 (80-100) fL MCH 28.5 (25-34) pg MCHC 32.4 (32-36) g/dL RDW Std Deviation 50.4 H (36.4-46.3) fL RDW Coeff of Hannah 15.7 H (11.5-14.5) % Plt Count 277 (130-400) K/uL MPV 10.9 H (7.4-10.4) fL Immature Gran % (Auto) 0.1 % Neut % (Auto) 57.7 % Lymph % (Auto) 32.7 % [place] % (Auto) 6.6 % Eos % (Auto) 2.5 % Baso % (Auto) 0.4 % Immature Gran # (Auto) 0.01 (0.00-0.02) K/uL Neut # (Auto) 6.48 (1.4-6.5) K/uL Lymph # (Auto) 3.67 H (1.2-3.4) K/uL [place] # (Auto) 0.74 H (0.11-0.59) K/uL Eos # (Auto) 0.28 (0-0.5) K/uL Baso # (Auto) 0.04 (0-0.2) K/uL POC D-Dimer 149 (0-450) ng/mlFEU Sodium 141 (136-145) mmol/L Potassium 4.2 (3.5-5.1) mmol/L Chloride 107 (98-107) mmol/L Carbon Dioxide 22 (21-32) mmol/L Anion Gap 11.0 (3-11) BUN 11 (7-18) mg/dl Creatinine 0.81 (0.6-1.2) mg/dl Est Cr Clr Drug Dosing 95.8 ml/min Est GFR ( Amer) 105.3 Est GFR (Non-Af Amer) 90.8 BUN/Creatinine Ratio 14.2 (10-20) Glucose 103 H (70-99) mg/dl Calcium 9.2 (8.5-10.1) mg/dl POC Troponin I < 0.03 (0-0.045) ng/ml Imaging Data Radiologist's Impression: Radiology results as stated below per my review and the radiologist's interpretation: XR chest 1V portable CLINICAL HISTORY: Chest Pain dyspnea COMPARISON STUDY: 05/30/2018 FINDINGS: The bones soft tissues and hemidiaphragms are normal. The cardiomediastinal silhouette is normal. The lungs are clear. The pulmonary vasculature is normal. IMPRESSION: Negative chest. The above report was generated using voice recognition software. It may contain grammatical, syntax or spelling errors. Electronically signed by: Dale Art M.D. 06/01/2018 4:46 PM ECG Data Attestation: I personally reviewed and interpreted this ECG as follows: Indication: chest pain Rate (beats per minute): 92 Rhythm: normal sinus Findings: no PVC and no ST elevation Blood Pressure Blood Pressure Findings: Normal blood pressure Blood Pressure Disposition: did not require urgent referral MDM Narrative I did perform a limited focused review of portions of the patient's old chart on the electronic medical record. The patient was seen on 05/14/2018 and 2018. She was evaluated in the emergency department but was sent back to group home for follow up. She had an NSTEMI in September,. She had severe two vessel disease and three stents replaced at that time. She does have about 40-50% disease in the LAD. I did evaluate the patient as noted above. The patient has a known history of coronary artery disease with 3 stents placed. She is presenting with left- sided chest pain rating into her neck and her shoulder. IV access was established. The patient was placed on a continuous cardiac technician. I did treat her with Toradol IV and nitroglycerin paste. I did order and personally review the patient's 12-lead EKG and chest x-ray as described above. Her twelve -lead EKG does not demonstrate any acute ischemia. Chest x-ray is unremarkable. I did order and review the patient's blood work as noted in the electronic medical record. Initial troponin and d-dimer are negative. I did reassess the patient. She states her chest pain is significantly improved with the medications. This is her third visit for chest pain within the past month. She has known coronary artery disease and an outpatient stress test was not arranged for her since her first visit. I did feel it would be prudent to keep her in the hospital for repeat cardiac enzymes and possible stress testing in the morning. The patient was happy with this plan. I did discuss the test results with the patient. I did discuss the case with the hospitalist and complex case manager. Impression & Plan Acute chest pain Discharge Plan Visit Data Chief Complaint: Chest Pain Stated Complaint: CHEST PAIN ED Provider: Max Estrada Discharge Problem: Acute chest pain Patient Disposition: Being Evaluated by Hospitalist Forms Stand Alone Forms: Call Back Authorization, My [facility] Prescriptions Prescriptions: No Action levetiracetam [Keppra] 500 mg Tablet 500 mg PO BID RF: 0 ibuprofen 200 mg Capsule 400 mg PO BID PRN (Reason: Pain) RF: 0 clopidogrel [Plavix] 75 mg Tablet 75 mg PO DAILY RF: 0 trazodone 100 mg tablet 250 mg PO HS RF: 0 metformin 1,000 mg Tablet 1,000 mg PO BID RF: 0 ranitidine HCl 150 mg Tablet 300 mg PO HS PRN (Reason: Heartburn) RF: 0 lisinopril [Zestril] 10 mg tablet 10 mg PO DAILY RF: 0 glipizide 5 mg Tablet 5 mg PO DAILY RF: 0 escitalopram oxalate [Lexapro] 20 mg tablet 20 mg PO DAILY RF: 0 metoprolol tartrate 25 mg Tablet 25 mg PO DAILY RF: 0 omeprazole 20 mg Tablet,Delayed Release (Dr/Ec) 20 mg PO BID RF: 0 trazodone 50 mg Tablet 25 mg PO DAILY RF: 0 atorvastatin 80 mg Tablet 80 mg PO PM RF: 0 aspirin 81 mg Tablet,Delayed Release (Dr/Ec) 81 mg PO DAILY RF: 0 buspirone 30 mg Tablet 30 mg PO BID RF: 0 Referrals Referrals: [facility], [facility], [Primary Care Provider] - The osmaribe's documentation has been prepared under my direction and personally reviewed by me in its entirety. I confirm that the note above accurately reflects all work, treatment, procedures, and medical decision making performed by me.
[2018-06-01] MEDS ORDERED: ALBUTEROL 0.083% NEBU SOLN 3 ML VIAL NEB PRN (20:14)
[2018-06-01] MEDS ORDERED: GLUCOSE 40% GEL 15 GM TUBE PO PRN (20:14)
[2018-06-01] MEDS ORDERED: CARBOHYDRATES FOR HYPOGLYCEMIA PO PRN (20:14)
[2018-06-01] MEDS ORDERED: GLUCOSE 10 TABS/TUBE PO PRN (20:14)
[2018-06-01] MEDS ORDERED: DEXTROSE 50% 50 ML SYRINGE IV PRN (20:14)
[2018-06-01] MEDS ORDERED: GLUCAGON FOR INJ 1 MG VIAL SQ PRN (20:14)
[2018-06-01 21:01] LABS: INR 1.1 (0.9-1.1); Prothrombin Time 10.7 Seconds (9.0-12.0)
[2018-06-01 21:08] LABS: Magnesium 1.9 mg/dl (1.8-2.4); Troponin I < 0.015 ng/ml (0-0.045)
[2018-06-01] MEDS: INSULIN GLARGINE SOLOSTAR 100 UNITS/ML 3 ML PEN SC SCH (21:29)
[2018-06-01] MEDS: BusPIRone 15 MG TAB PO SCH (21:29)
[2018-06-01] MEDS: levETIRAcetam 500 MG TAB PO SCH (21:29)
[2018-06-01] MEDS: ATORVASTATIN 40 MG TAB PO SCH (21:29)
[2018-06-01] MEDS: PANTOprazole 40 MG TAB PO SCH (21:30)
[2018-06-01] MEDS: TRAZODONE HCL 100 MG TAB PO SCH (21:30)
[2018-06-01] MEDS: INSULIN ASPART 100 UNITS/ML 3 ML PEN SC SCH (21:30)
[2018-06-01] MEDS: NITROGLYCERIN 2% OINTMENT 30GM TUBE EXT SCH (23:39)
[2018-06-02 00:34] LABS: Amphetamines+Metham, Urine Neg (Neg); Barbiturates, Urine Neg (Neg); Benzodiazepine, Urine Neg (Neg); Cocaine, Urine Neg (Neg); MDMA (Ecstacy), Urine Neg (Neg); Methadone, Urine Neg (Neg); Opiate, Urine Neg (Neg); Phencyclidine, Urine Neg (Neg)
[2018-06-02 00:47] LABS: Partial Thromboplastin Time 25.4 Seconds (21.0-31.0)
[2018-06-02 04:05] LABS: Hematocrit (blood only) 36.6 % (37-47); Hemoglobin 12.1 g/dL (12.0-16.0); Mean Corpuscular Hgb Conc 33.1 g/dL (32-36); Mean Corpuscular Volume 87.8 fL (80-100); Mean Platelet Volume 10.6 fL (7.4-10.4); Platelet Count 236 K/uL (130-400); RDW Coefficient of Variation 15.8 % (11.5-14.5); RDW Standard Deviation 50.5 fL (36.4-46.3); Red Blood Count 4.17 M/uL (4.2-5.4); White Blood Count 10.83 K/uL (4.8-10.8)
[2018-06-02 04:21] LABS: Blood Urea Nitrogen 11 mg/dl (7-18); Calcium 8.9 mg/dl (8.5-10.1); Carbon Dioxide 22 mmol/L (21-32); Chloride 110 mmol/L (98-107); Creatinine Clr Calc Pharmacy 107.8 ml/min; Est GFR (African American) 125.6; Est GFR (Non-African American) 108.4; Glucose 108 mg/dl (70-99); Potassium 3.6 mmol/L (3.5-5.1); Sodium 139 mmol/L (136-145)
[2018-06-02 04:26] LABS: Chol HDL Ratio 7; Cholesterol 191 mg/dl (0-200); HDL Cholesterol 28 mg/dl; LDL Cholesterol Calculated 130 mg/dl; Triglycerides 166 mg/dl (0-150); Troponin I < 0.015 ng/ml (0-0.045); VLDL Cholesterol 33 mg/dl
[2018-06-02] MEDS: NITROGLYCERIN 2% OINTMENT 30GM TUBE EXT SCH ×3 (05:32→17:21)
[2018-06-02] MEDS: HEPARIN SOD 5,000 UNIT/0.5 ML VIAL SQ SCH ×3 (05:32→21:23)
[2018-06-02 07:15] LABS: Estimated Average Glucose 169 mg/dl
[2018-06-02] MEDS: INSULIN ASPART 100 UNITS/ML 3 ML PEN SC SCH ×4 (08:28→21:23)
[2018-06-02] MEDS: INSULIN GLARGINE SOLOSTAR 100 UNITS/ML 3 ML PEN SC SCH ×2 (08:29→21:25)
[2018-06-02] MEDS: BusPIRone 15 MG TAB PO SCH ×2 (08:31→21:21)
[2018-06-02] MEDS: ASPIRIN 81 MG ECTAB PO SCH (08:31)
[2018-06-02] MEDS: ESCITALOPRAM OXALATE 20 MG TAB PO SCH (08:32)
[2018-06-02] MEDS: levETIRAcetam 500 MG TAB PO SCH ×2 (08:32→21:22)
[2018-06-02] MEDS: CLOPIDOGREL BISULFATE 75 MG TAB PO SCH (08:32)
[2018-06-02] MEDS: PANTOprazole 40 MG TAB PO SCH ×2 (08:32→21:24)
[2018-06-02] MEDS: TRAZODONE HCL 50 MG TAB PO SCH (08:38)
[2018-06-02] MEDS ORDERED: METOPROLOL TARTRATE 25 MG TAB PO SCH (09:00)
--- NOTE | 2018-06-02 12:17 | Cardiology Consultation ---
Date of Consultation June 02, 2018 Assessment & Plan (1) Chest pain: Symptoms are concerning for angina though with patient with multiple complaints initial EKGs and enzymes do not reflect acute ischemia. Reviewed diagnostic cardiac catheterization of October 2016 with patient receiving stents to branch vessel coronaries the ramus and distal circumflex. The remainder residual disease in mid left anterior descending. Discussed options of management given persistent symptoms or complaints multiple ER presentations pain relieved by nitroglycerin repeat diagnostic cardiac catheterization will be performed. Will keep patient n.p.o. for the rest of today to allow procedure if schedule allows otherwise performed in a.m. An internal attempt to optimize medical therapy. Resume statin aspirin and appropriate dose beta-vijay. Continue lisinopril (2) History of cardiac cath: As above (3) Hypertension: (4) Dyslipidemia: History of Present Illness Reason for Consultation: Chest pain Requesting Physician: Dr. Debora Moon Attending Physician: Debora Moon MD History of Present Illness Patient is a 38-year-old female with complex history of multiple hospital and ER presentations. Her past cardiac history is notable for presentation with acute coronary syndrome October 2016 undergoing two-vessel coronary intervention for branch vessel stenoses receiving stents to the ramus intermedius and the distal circumflex. Underlying medical problems include type 2 diabetes mellitus , hypertension, hyperlipidemia multiple hospitalizations with infections and soft tissue lesions. Patient presents this admission having had multiple ER presentations with recurrent chest pain radiating to left shoulder and arm. Patient's been off medications including aspirin and statin recently. Symptoms of been recurrent and exacerbated with activity relieved with rest and nitroglycerin. She denies fevers chills or productive cough notes no melena hematochezia dysuria hematuria appetite and weight have been stable to the degree patient has known. Notes no bleeding issues chronically or in the past denies acute neurologic complaints. No prior history of TIA or stroke. Past history of seizure activity noted though no recent recurrence Allergies Allergy/AdvReac Type Severity Reaction Status Date / Time lidocaine Allergy Intermediate HIVES Verified 06/01/18 16:22 procaine Allergy Intermediate HIVES Verified 06/01/18 16:22 Penicillins Allergy Mild HAD NO Verified 06/01/18 16:22 PROBLEM WITH ZOSYN strawberry Allergy Mild HIVES Verified 06/01/18 16:22 cephalexin AdvReac Intermediate YEAST Verified 06/01/18 16:22 INFECTIONS egg AdvReac Intermediate GI UPSET Verified 06/01/18 16:22 mivacurium AdvReac Mild STOMACH Verified 06/01/18 16:22 PAINS tramadol AdvReac Unknown SEIZURES Verified 06/01/18 16:22 azithromycin AdvReac Unknown Verified 06/01/18 16:22 Home Medications Home Medications Medication Instructions Recorded Confirmed Type clopidogrel [Plavix] 75 mg PO DAILY 05/30/18 06/01/18 History escitalopram oxalate [Lexapro] 20 mg PO DAILY 05/30/18 06/01/18 History glipizide 5 mg PO DAILY 05/30/18 06/01/18 History ibuprofen 400 mg PO BID PRN 05/30/18 06/01/18 History levetiracetam [Keppra] 500 mg PO BID 05/30/18 06/01/18 History lisinopril [Zestril] 10 mg PO DAILY 05/30/18 06/01/18 History metformin 1,000 mg PO BID 05/30/18 06/01/18 History metoprolol tartrate 25 mg PO DAILY 05/30/18 06/01/18 History omeprazole 20 mg PO BID 05/30/18 06/01/18 History ranitidine HCl 300 mg PO HS PRN 05/30/18 06/01/18 History trazodone 250 mg PO HS 05/30/18 06/01/18 History aspirin 81 mg PO DAILY 06/01/18 06/01/18 History atorvastatin 80 mg PO PM 06/01/18 06/01/18 History buspirone 30 mg PO BID 06/01/18 06/01/18 History trazodone 25 mg PO DAILY 06/01/18 06/01/18 History Patient History Medical History History of drug abuse (Chronic) Depression (Chronic) GERD (gastroesophageal reflux disease) (Chronic) Seizure disorder (Chronic) Coronary artery disease (Chronic) Diabetes mellitus, type 2 (Chronic) Hypertension (Chronic) Hepatitis C (Chronic) "Antibiotic screen positive, quantitative RNA positive 08/30/17" Dyslipidemia (Chronic) History of renal calculi (Chronic) Asthma (Chronic) History of DVT (deep vein thrombosis) (Chronic) Hepatosplenomegaly (Chronic) Acute hypoxemic respiratory failure (Resolved) Fungemia (Resolved) Soft tissue abscess of suprapubic region (Resolved) Pneumonitis (Resolved) Sepsis (Resolved) CAD (coronary artery disease) DVT (deep venous thrombosis) Diabetes Surgical History History of lumbar spinal fusion (Resolved) Hx of tonsillectomy (Resolved) History of carpal tunnel surgery (Resolved) History of cardiac cath (Resolved) 2017- 1 ROJAS to ramus, 2 ROJAS to L circumflex. 40-50% plaque to LAD Status post cholecystectomy (Chronic) Family History Other Diabetes Heart disease Hypertension Kidney stones Seizures Social History Current Living Situation: Other Current Living Situation Comment: [facility] Feels Safe at Home: Yes Safety Concerns: Feels Safe At This Time Smoking Status: Current every day smoker Tobacco Type: cigarettes Hx Alcohol Use: No Hx Substance Use: No Beliefs That Will Affect Care: None Preferred Language: Kosovan Communication Ability: Effective Logistics Planning Manager Required: No Review of Systems As per HPI full review performed Physical Exam 2 Vital Signs (Past 24 Hours): Last Vital Signs Temp 37.1 C 06/02/18 11:30 Pulse 82 06/02/18 11:30 Resp 18 06/02/18 11:30 BP 119/74 06/02/18 11:30 Pulse Ox 98 06/02/18 11:30 Constitutional: WD/WN, vitals as above Eyes: PERRL, conjunctivae normal, anicteric sclerae ENMT: external ear and nose normal, oropharynx normal Neck: trachea midline, no thyromegaly Respiratory: no respiratory distress and no audible wheezes Auscultation: + diminished lung sounds (Mildly diminished) Cardiovascular: RRR, no murmur, no edema Vessels: femoral pulses present and radial pulses present; no JVD Extremities: no pedal edema Gastrointestinal (Abdomen): normal bowel sounds, soft, nontender, no hepatosplenomegaly Neurologic: Grossly intact Psychiatric: A+Ox3, euthymic affect Results & Data Laboratory Results Laboratory Results - last 24 hr 06/01/18 06/01/18 06/01/18 16:40 16:40 16:40 WBC 11.22 H RBC 4.24 Hgb 12.1 Hct 37.3 MCV 88.0 MCH 28.5 MCHC 32.4 RDW Std Deviation 50.4 H RDW Coeff of Hannah 15.7 H Plt Count 277 MPV 10.9 H Immature Gran % (Auto) 0.1 Neut % (Auto) 57.7 Lymph % (Auto) 32.7 Lane % (Auto) 6.6 Eos % (Auto) 2.5 Baso % (Auto) 0.4 Immature Gran # (Auto) 0.01 Neut # (Auto) 6.48 Lymph # (Auto) 3.[address] # (Auto) 0.74 H Eos # (Auto) 0.28 Baso # (Auto) 0.04 PT 10.7 INR 1.1 APTT PTT Ratio POC D-Dimer Sodium 141 Potassium 4.2 Chloride 107 Carbon Dioxide 22 Anion Gap 11.0 BUN 11 Creatinine 0.81 Est Cr Clr Drug Dosing 95.8 Est GFR ( Amer) 105.3 Est GFR (Non-Af Amer) 90.8 BUN/Creatinine Ratio 14.2 Glucose 103 H POC Glucose Estimat Average Glucose Hemoglobin A1c Calcium 9.2 Magnesium 1.9 POC Troponin I Troponin I < 0.015 Triglycerides Cholesterol LDL Cholesterol, Calc VLDL Cholesterol, Calc HDL Cholesterol Cholesterol/HDL Ratio TSH 0.682 Urine Opiates Screen Ur Methadone, Qual Urine Barbiturates Ur Phencyclidine (PCP) U Amphetamin/Meth Scrn MDMA (Ecstasy) Screen U Benzodiazepines Scrn Ur Cocaine Metabolite U Marijuana (THC) Screen 06/01/18 06/01/18 06/02/18 16:46 20:27 00:00 WBC RBC Hgb Hct MCV MCH MCHC RDW Std Deviation RDW Coeff of Hannah Plt Count MPV Immature Gran % (Auto) Neut % (Auto) Lymph % (Auto) Lane % (Auto) Eos % (Auto) Baso % (Auto) Immature Gran # (Auto) Neut # (Auto) Lymph # (Auto) Lane # (Auto) Eos # (Auto) Baso # (Auto) PT INR APTT PTT Ratio POC D-Dimer 149 Sodium Potassium Chloride Carbon Dioxide Anion Gap BUN Creatinine Est Cr Clr Drug Dosing Est GFR ( Amer) Est GFR (Non-Af Amer) BUN/Creatinine Ratio Glucose POC Glucose 119 H Estimat Average Glucose Hemoglobin A1c Calcium Magnesium POC Troponin I < 0.03 Troponin I Triglycerides Cholesterol LDL Cholesterol, Calc VLDL Cholesterol, Calc HDL Cholesterol Cholesterol/HDL Ratio TSH Urine Opiates Screen Neg Ur Methadone, Qual Neg Urine Barbiturates Neg Ur Phencyclidine (PCP) Neg U Amphetamin/Meth Scrn Neg MDMA (Ecstasy) Screen Neg U Benzodiazepines Scrn Neg Ur Cocaine Metabolite Neg U Marijuana (THC) Screen Neg 06/02/18 06/02/18 06/02/18 00:24 00:24 03:53 WBC RBC Hgb Hct MCV MCH MCHC RDW Std Deviation RDW Coeff of Hannah Plt Count MPV Immature Gran % (Auto) Neut % (Auto) Lymph % (Auto) Lane % (Auto) Eos % (Auto) Baso % (Auto) Immature Gran # (Auto) Neut # (Auto) Lymph # (Auto) Lane # (Auto) Eos # (Auto) Baso # (Auto) PT INR APTT 25.4 PTT Ratio 1.0 POC D-Dimer Sodium 139 Potassium 3.6 Chloride 110 H Carbon Dioxide 22 Anion Gap 7.0 BUN 11 Creatinine 0.70 Est Cr Clr Drug Dosing 107.8 Est GFR ( Amer) 125.6 Est GFR (Non-Af Amer) 108.4 BUN/Creatinine Ratio 15.0 Glucose 108 H POC Glucose Estimat Average Glucose Hemoglobin A1c Calcium 8.9 Magnesium POC Troponin I Troponin I < 0.015 < 0.015 Triglycerides 166 H Cholesterol 191 LDL Cholesterol, Calc 130 VLDL Cholesterol, Calc 33 HDL Cholesterol 28 Cholesterol/HDL Ratio 7 TSH Urine Opiates Screen Ur Methadone, Qual Urine Barbiturates Ur Phencyclidine (PCP) U Amphetamin/Meth Scrn MDMA (Ecstasy) Screen U Benzodiazepines Scrn Ur Cocaine Metabolite U Marijuana (THC) Screen 06/02/18 06/02/18 06/02/18 03:53 03:53 07:37 WBC 10.83 H RBC 4.17 L Hgb 12.1 Hct 36.6 L MCV 87.8 MCH 29.0 MCHC 33.1 RDW Std Deviation 50.5 H RDW Coeff of Hannah 15.8 H Plt Count 236 MPV 10.6 H Immature Gran % (Auto) Neut % (Auto) Lymph % (Auto) Lane % (Auto) Eos % (Auto) Baso % (Auto) Immature Gran # (Auto) Neut # (Auto) Lymph # (Auto) Lane # (Auto) Eos # (Auto) Baso # (Auto) PT INR APTT PTT Ratio POC D-Dimer Sodium Potassium Chloride Carbon Dioxide Anion Gap BUN Creatinine Est Cr Clr Drug Dosing Est GFR ( Amer) Est GFR (Non-Af Amer) BUN/Creatinine Ratio Glucose POC Glucose 148 H Estimat Average Glucose 169 Hemoglobin A1c 7.5 H Calcium Magnesium POC Troponin I Troponin I Triglycerides Cholesterol LDL Cholesterol, Calc VLDL Cholesterol, Calc HDL Cholesterol Cholesterol/HDL Ratio TSH Urine Opiates Screen Ur Methadone, Qual Urine Barbiturates Ur Phencyclidine (PCP) U Amphetamin/Meth Scrn MDMA (Ecstasy) Screen U Benzodiazepines Scrn Ur Cocaine Metabolite U Marijuana (THC) Screen 06/02/18 11:29 WBC RBC Hgb Hct MCV MCH MCHC RDW Std Deviation RDW Coeff of Hannah Plt Count MPV Immature Gran % (Auto) Neut % (Auto) Lymph % (Auto) Lane % (Auto) Eos % (Auto) Baso % (Auto) Immature Gran # (Auto) Neut # (Auto) Lymph # (Auto) Lane # (Auto) Eos # (Auto) Baso # (Auto) PT INR APTT PTT Ratio POC D-Dimer Sodium Potassium Chloride Carbon Dioxide Anion Gap BUN Creatinine Est Cr Clr Drug Dosing Est GFR ( Amer) Est GFR (Non-Af Amer) BUN/Creatinine Ratio Glucose POC Glucose 131 H Estimat Average Glucose Hemoglobin A1c Calcium Magnesium POC Troponin I Troponin I Triglycerides Cholesterol LDL Cholesterol, Calc VLDL Cholesterol, Calc HDL Cholesterol Cholesterol/HDL Ratio TSH Urine Opiates Screen Ur Methadone, Qual Urine Barbiturates Ur Phencyclidine (PCP) U Amphetamin/Meth Scrn MDMA (Ecstasy) Screen U Benzodiazepines Scrn Ur Cocaine Metabolite U Marijuana (THC) Screen ECG Additional Comments: Normal sinus rhythm at [address] segment changes or Q waves _ (1) Chest pain Chest pain type: other chest pain Ischemic chest pain type: Qualified Code( s): R07.89 - Other chest pain; R07.8 - Other chest pain
--- NOTE | 2018-06-02 14:11 | Hospitalist Progress Note ---
Date of Service June 02, 2018 Assessment & Plan (1) Chest pain: (2) Coronary artery disease: Present on admission with Left sided chest pain radiated to Left arm and neck associated with SOB Hx CAD, NSTEMI in 2017 s/p cardiac cath and 2 ROJAS to L circumflex and 1 ROJAS to ramus with known 40-50% plaque to LAD Received Nitro and Asa in detention Currently denies any chest pain Troponin x3 sets negative EKG showed no ischemic changes Echo showed no wall motion abnormality Cardiology on board and plan for cardiac cath later Continue plavix, aspirin and metoprolol and statin Keep NPO for now Continue tele monitor (3) Diabetes mellitus, type 2: Recent A1c: 7.5 on 06/02/18 Hold glipizide, metformin while in hospital Novolog, Lantus sliding scale per protocol Monitor BS (4) Hypertension: BP stable Continue metoprolol Will resume lisinopril in am after cardiac cath (5) Dyslipidemia: LDL 130 , chol 191, HDL 28 Starting on atorvastatin 80mg (6) Seizure disorder: Denies recent seizure Continue keppra (7) Asthma: No acute exacerbation On albuterol neb prn Stable (8) Depression: Continue buspirone, lexapro (9) GERD (gastroesophageal reflux disease): continue PPI, H2 vijay (10) History of drug abuse: UDS negative Stable DVT Prophylaxis On Heparin SQ CODE STATUS Full Code Disposition Will discharge once medically stable by cardio Subjective Pt was seen and examined Lying in bed with no distress with 2 senior security engineer present Pt said that she feels fine Denies any chest pain, palpitation, dizziness and SOB Physical Exam 2 Vital Signs (Past 24 Hours): Last Vital Signs Temp 37.1 C 06/02/18 11:30 Pulse 82 06/02/18 11:30 Resp 18 06/02/18 11:30 BP 119/74 06/02/18 11:30 Pulse Ox 98 06/02/18 11:30 Physical Exam: General- No acute distress Head- atraumatic Eyes- PERRL, EOMI, ENT- oropharynx clear Neck- supple, no JVD Lungs- No wheezing Heart- regular rhythm; no murmur Abdomen- normal bowel sounds, soft, nontender Extremities- no calf tenderness Neuro- alert, oriented x 3; PERRL, EOMI; no facial palsy; no dysarthria Skin- warm & dry _ (1) Chest pain Chest pain type: other chest pain Ischemic chest pain type: Qualified Code( s): R07.89 - Other chest pain; R07.8 - Other chest pain
[2018-06-02] MEDS: ACETAMINOPHEN 325 MG TAB PO PRN ×2 (14:22→18:25)
[2018-06-02] MEDS: METOPROLOL TARTRATE 25 MG TAB PO SCH (21:20)
[2018-06-02] MEDS: ATORVASTATIN 40 MG TAB PO SCH (21:22)
[2018-06-02] MEDS: TRAZODONE HCL 100 MG TAB PO SCH (21:23)
[2018-06-03] MEDS: NITROGLYCERIN 2% OINTMENT 30GM TUBE EXT SCH ×3 (00:45→15:09)
[2018-06-03] MEDS: HEPARIN SOD 5,000 UNIT/0.5 ML VIAL SQ SCH ×2 (06:17→15:14)
[2018-06-03] MEDS: INSULIN ASPART 100 UNITS/ML 3 ML PEN SC SCH ×3 (08:18→17:28)
[2018-06-03] MEDS: INSULIN GLARGINE SOLOSTAR 100 UNITS/ML 3 ML PEN SC SCH (08:22)
[2018-06-03] MEDS: BusPIRone 15 MG TAB PO SCH (08:23)
[2018-06-03] MEDS: TRAZODONE HCL 50 MG TAB PO SCH (08:24)
[2018-06-03] MEDS: METOPROLOL TARTRATE 25 MG TAB PO SCH (08:24)
[2018-06-03] MEDS: ASPIRIN 81 MG ECTAB PO SCH (08:24)
[2018-06-03] MEDS: levETIRAcetam 500 MG TAB PO SCH (08:24)
[2018-06-03] MEDS: ESCITALOPRAM OXALATE 20 MG TAB PO SCH (08:24)
[2018-06-03] MEDS: CLOPIDOGREL BISULFATE 75 MG TAB PO SCH (08:25)
[2018-06-03] MEDS: PANTOprazole 40 MG TAB PO SCH (08:25)
[2018-06-03] MEDS ORDERED: HEPARIN (PORCINE) 1000 UNIT/ML 10 ML (CATH LAB USE ONLY) ONE (08:46)
[2018-06-03] MEDS ORDERED: NITROGLYCERIN/D5W 100MCG/ML 20ML SYR ONE (08:46)
[2018-06-03] MEDS ORDERED: fentaNYL citrate 100 MCG/2 ML VIAL ONE ×2 (08:46→09:40)
[2018-06-03] MEDS ORDERED: NiCARDipine HCL INJ 2.5 MG/ML 10 ML AMP ONE (08:46)
[2018-06-03] MEDS ORDERED: MIDAZOLAM HCL 1 MG/ML 2ML VIAL ONE (08:46)
--- NOTE | 2018-06-03 08:53 | Pre Anesthesia Assessment ---
Date of Service June 03, 2018 Pre Sedation Assessment Vital Signs Temp Pulse Pulse Resp BP BP Pulse Ox 06/03/18 07:29 94 H 06/03/18 07:00 36.9 C 85 18 111/67 97 06/03/18 03:02 37.0 C 81 18 112/67 97 06/03/18 00:00 79 06/02/18 23:12 36.6 C 78 16 114/67 95 06/02/18 19:12 37 C 86 18 130/85 98 06/02/18 16:00 36.2 C L 85 127/83 96 06/02/18 11:30 37.1 C 82 18 119/74 98 Cardiovascular RRR, no murmur, no edema Respiratory + diminished lung sounds Pre-Sedation Airway Assessment Smoking Status: Current every day smoker Procedure Planning Contraindications for Sedation: none Current Medications Reviewed: Yes Notes The planned sedation has been discussed with the patient. Informed Consent was obtained. I have identified the patient, determined the appropriateness of sedation and have assessed the patient immediately prior to the procedure. All medicine(s) and interventions are by my order.
--- NOTE | 2018-06-03 09:46 | Cardiac Catheterization ---
Cardiac Cath Procedure: Brief Procedure Date June 03, 2018 Pre-Procedure Diagnosis Pre-Procedure Diagnosis: Angina and CAD AUC Score AUC Score: 8 Post-Procedure Diagnosis Post-Procedure Diagnosis: Moderate CAD Procedure(s) Performed Procedure(s) Performed: Coronary Angiography, Left Heart Cath and LV Angiography Paint Grinder Paresh Gonzales MD Material Distributor(s) Orville Barbosa RN Estimated Blood Loss Estimated Blood Loss: None Medication(s) Medication(s): Fentanyl, Heparin (5000 units IV), Lidocaine 1%, Nicardipine ( 300 mcg intra-arterial after sheath insertion prior to sheath removal), Nitroglycerin and Versed (1 mg IV x2) Preliminary Findings Right dominant coronary anatomy Widely patent stents in the left circumflex and ramus intermedius Distal branch vessel disease with 80% very distal posterior descending artery stenosis trivial sized vessel Left main: Large in caliber without disease Left anterior descending: Type III distribution giving rise to a large diagonal branch at the end of its proximal third coursing to beyond the apex. Vessel has a 40% narrowing in its proximal third and a 50% narrowing in its midportion smooth Left circumflex: Left circumflex is large but nondominant's rise to an obtuse marginal, trivial second marginal and a very large long posterior lateral branch. Within the left circumflex is a 30% narrowing in its proximal portion and a 30% narrowing within the proximal portion of the obtuse marginal. The distal circumflex has a widely patent stent along the AV groove Ramus intermedius: This is a moderately large vessel with mild luminal irregularities and widely patent stent in its midportion Right coronary artery right coronary artery is large and dominant gives rise to a conus branch at its origin, right ventricular brances in its proximal and mid thirds, at the AV groove gives rise to a long posterior descending artery and along the AV groove 2 small posterior ventricular branchs. In the very distal posterior descending artery as the vessel becomes trivial in size there is an 80 % focal narrowing. The right coronary is moderate irregularities throughout LV angiography: Normal to hyperdynamic ejection fraction EF 65% no mitral insufficiency LVEDP 4 No transaortic valve gradient on pullback Recommendations Recommendations: Medical Therapy and/or Counseling Specimens Specimens: None Fluids (cc crystalloids) Fluids (cc crystalloids): 50 cc Anesthesia Start time 859: Stop time 934 Procedural Complication(s) None Disposition PCU
--- NOTE | 2018-06-03 10:04 | Cardiac Catheterization ---
Cardiac Cath Procedure Full Procedure Date June 03, 2018 Pre-Procedure Diagnosis Pre-Procedure Diagnosis: Angina and CAD AUC Score AUC Score: 8 Post-Procedure Diagnosis Post-Procedure Diagnosis: Moderate CAD Procedure(s) Performed Procedure(s) Performed: Coronary Angiography, Left Heart Cath and LV Angiography Nursing Program Chair Paresh Gonzales MD Relish Blender(s) Orville Barbosa RN Estimated Blood Loss Estimated Blood Loss: None Medication(s) Medication(s): Fentanyl, Heparin (5000 units IV), Lidocaine 1%, Nicardipine ( 300 mcg intra-arterial after sheath insertion prior to sheath removal), Nitroglycerin and Versed (1 mg IV x2) Summary of Findings Right dominant coronary anatomy Widely patent stents in the left circumflex and ramus intermedius Distal branch vessel disease with 80% very distal posterior descending artery stenosis trivial sized vessel Left main: Large in caliber without disease Left anterior descending: Type III distribution giving rise to a large diagonal branch at the end of its proximal third coursing to beyond the apex. Vessel has a 40% narrowing in its proximal third and a 50% narrowing in its midportion smooth Left circumflex: Left circumflex is large but nondominant's rise to an obtuse marginal, trivial second marginal and a very large long posterior lateral branch. Within the left circumflex is a 30% narrowing in its proximal portion and a 30% narrowing within the proximal portion of the obtuse marginal. The distal circumflex has a widely patent stent along the AV groove Ramus intermedius: This is a moderately large vessel with mild luminal irregularities and widely patent stent in its midportion Right coronary artery right coronary artery is large and dominant gives rise to a conus branch at its origin, right ventricular brances in its proximal and mid thirds, at the AV groove gives rise to a long posterior descending artery and along the AV groove 2 small posterior ventricular branchs. In the very distal posterior descending artery as the vessel becomes trivial in size there is an 80 % focal narrowing. The right coronary is moderate irregularities throughout LV angiography: Normal to hyperdynamic ejection fraction EF 65% no mitral insufficiency LVEDP 4 No transaortic valve gradient on pullback Hemodynamics Rest Ao:: 111/70/90 Final Ao: 115/63/86 LV: 112/0/4 Recommendations Recommendations: Medical Therapy and/or Counseling Specimens Specimens: None Radiation Exposure (mGy) 1742 Contrast (mls) 119 Fluids (cc crystalloids) Fluids (cc crystalloids): 50 cc Anesthesia Start time 859: Stop time 934 Procedural Complication(s) None Disposition PCU ACC Data: Textile Chemist Cardiac Status Clinical evaluation leading to the procedure Patient presented with rest chest pain setting of known prior coronary disease, prior coronary intervention CAD Presenation: Unstable angina Anginal Classification: CCS IV Heart Failure: No Cardiogenic Shock within 24 Hours: No Cardiac Arrest within 24 Hours: No Imaging Studies Past 6 Months: Yes Stress Studies Past 6 Months: No Standard Exercise Test: No Stress Echocardiogram: No Stress Testing w/SPECT MPI: No Cardiac CTA: No Coronary Anatomy Dominant: Right Left Main (% Stenosis): Normal D1 (% Stenosis): Proximal (40%), Mid (50%) and Normal Circumflex (% Stenosis): Proximal (30%) OM1 (% Stenosis): Proximal (30%) OM2 (% Stenosis): Normal L PL1 (% Stenosis): Normal (Widely patent stent) RCA (% Stenosis): Normal R PDA (% Stenosis): Distal (Very distal 80%) R PL1 (% Stenosis): Normal R PL2 (% Stenosis): Normal Left Ventricular Angiography EF (%): 65 Mitral Regurgitation: None Diagnostic Physicians Name: Paresh Gonzales MD Status: Urgent Closure Device Percutaneous Entry Location: Radial Closure Device: Radial Band Recommendations: Medical Therapy and/or Counseling
[2018-06-03] MEDS ORDERED: SODIUM CHLORIDE 0.9% 1000ML 1,000 ML IV SCH (10:15)
[2018-06-03] MEDS ORDERED: Nursing to Pharmacy Communication ONE (14:37)
--- NOTE | 2018-06-03 15:21 | Cardiology Progress Note ---
Date of Service June 03, 2018 Assessment & Plan (1) Chest pain: Initial symptoms are concerning for angina though with patient with multiple complaints initial EKGs and enzymes do not reflect acute ischemia. Cardiac catheterization today demonstrated widely patent stents prior intervened vessels ramus intermedius and left circumflex. There is very distal vessel disease of 80% within the posterior descending artery vessel small caliber at this point Plan continued medical therapy, increase beta-vijay resume aspirin and statin consider addition of low-dose amlodipine (2) History of cardiac cath: As above (3) Hypertension: (4) Dyslipidemia: Physical Exam 2 Vital Signs (Past 24 Hours): Last Vital Signs Temp 36.9 C 06/03/18 12:30 Pulse 91 H 06/03/18 12:30 Resp 16 06/03/18 12:30 BP 118/74 06/03/18 12:30 Pulse Ox 98 06/03/18 12:30 Constitutional: WD/WN, vitals as above Eyes: PERRL, conjunctivae normal, anicteric sclerae ENMT: external ear and nose normal, oropharynx normal Neck: trachea midline, no thyromegaly Respiratory: no respiratory distress and no audible wheezes Auscultation: + diminished lung sounds Cardiovascular: RRR, no murmur, no edema Vessels: femoral pulses present and radial pulses present; no JVD Extremities: no pedal edema Right radial artery access site intact Gastrointestinal (Abdomen): normal bowel sounds, soft, nontender, no hepatosplenomegaly Psychiatric: A+Ox3, euthymic affect _ (1) Chest pain Chest pain type: other chest pain Ischemic chest pain type: Qualified Code( s): R07.89 - Other chest pain; R07.8 - Other chest pain
[2018-06-03] MEDS: ACETAMINOPHEN 325 MG TAB PO PRN (16:02)
--- NOTE | 2018-06-03 16:20 | Hospitalist Progress Note ---
Date of Service June 03, 2018 Assessment & Plan (1) Chest pain: (2) Coronary artery disease: Present on admission with Left sided chest pain radiated to Left arm and neck associated with SOB Hx CAD, NSTEMI in 2017 s/p cardiac cath and 2 ROJAS to L circumflex and 1 ROJAS to ramus with known 40-50% plaque to LAD Received Nitro and Asa in [facility] Currently denies any chest pain Troponin x3 sets negative EKG showed no ischemic changes Echo showed no wall motion abnormality Cardiology on board S/P cardiac cath done today showed widely patent stents prior intervened vessels ramus intermedius and left circumflex. There is very distal vessel disease of 80% within the posterior descending artery vessel small caliber at this point Continue plavix, aspirin,and statin Metoprolol increased to BID OK from cardiology standpoint to discharge today (3) Diabetes mellitus, type 2: Recent A1c: 7.5 on 06/02/18 Hold glipizide, metformin while in hospital Novolog, Lantus sliding scale per protocol Resume Glipizide and metformin after 48hr post cardiac cath Monitor BS (4) Hypertension: BP stable Continue metoprolol Resume lisinopril on discharge (5) Dyslipidemia: LDL 130 , chol 191, HDL 28 Continue atorvastatin 80mg (6) Seizure disorder: Denies recent seizure Continue keppra (7) Asthma: No acute exacerbation On albuterol neb prn Stable (8) Depression: Continue buspirone, lexapro (9) GERD (gastroesophageal reflux disease): continue PPI, H2 vijay (10) History of drug abuse: UDS negative Stable DVT Prophylaxis On Heparin SQ CODE STATUS Full Code Disposition Discharge today to correctional facility Subjective Pt was seen and examined Lying in bed with no distress with 2 guards present She had cardiac cath done this morning Denies any any chest pain, palpitation, dizziness and SOB Physical Exam 2 Vital Signs (Past 24 Hours): Last Vital Signs Temp 37.3 C 06/03/18 15:36 Pulse 85 06/03/18 16:16 Resp 24 06/03/18 15:36 BP 114/89 06/03/18 15:36 Pulse Ox 97 06/03/18 15:36 Physical Exam: General- No acute distress Head- atraumatic Eyes- PERRL, EOMI, ENT- oropharynx clear Neck- supple, no JVD Lungs- No wheezing Heart- regular rhythm; no murmur Abdomen- normal bowel sounds, soft, nontender Extremities- no calf tenderness, no hematoma in right wrist area Neuro- alert, oriented x 3; PERRL, EOMI; no facial palsy; no dysarthria Skin- warm & dry _ (1) Chest pain Chest pain type: other chest pain Ischemic chest pain type: Qualified Code( s): R07.89 - Other chest pain; R07.8 - Other chest pain
[2018-06-03] MEDS ORDERED: METOPROLOL TARTRATE 50 MG TAB PO SCH (21:00)
--- NOTE | 2018-06-05 23:33 | Discharge Summary ---
Date of Service June 03, 2018 Admission HPI Per Admitting Provider Pt is 38 y/o F with PMH CAD -NSTEMI in 2017 s/p cardiac cath and 2 ROJAS to L circumflex and 1 ROJAS to ramus with known 40-50% plaque to LAD, HTN, dyslipidemia , seizure disorder, GERD, asthma, Hepatitis C, depression, h/o drug abuse presented to ER from [facility] with c/o CP. This is pt's 3rd ER visit for CP, most recent being on 05/30/18. Pt reports continued intermittent L- sided chest pain with radiation to L arm and L neck that has been occurring 1-3 times a day and lasts for approx 5 minutes. Usually happens at rest. States today had SOB with CP. Denies dizziness, nausea or diaphoresis. Today was given 3 nitro and ASA in [facility] with some reported relief of CP. In ER has nitropaste and is CP free. Pt states hasn't been receiving her ASA or atorvastatin while in [facility]. Denies fever/chills, N/V/D/C, [place], dizziness, syncope, vision changes , neck pain, orthopnea, palpitations, cough, sore throat, choking, otalgia, rhinorrhea, abdominal pain, paresthesias, weakness, extremity edema, rashes, urinary symptoms. Denies recent drug or ETOH use. Hx echo 08/2017: EF: 55-60% Hx STEVEN 08/2017: no evidence for endocarditis or vegitation. 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 Admission Exam Per Admitting Provider General: no distress, obese, appears older than stated age Head: normocephalic, atraumatic Eyes: PERRL, EOM's intact, conjunctiva non-injected, anicteric ENT: normal inspection external ears, nose, mucous membranes moist Neck: supple, trachea midline, non-tender Lungs: clear, no respiratory distress, no wheezing/rhonchi/rales. chest non- tender to palpation CV: RRR, +systolic murmur, no JVD, no pretibial edema Abd: normal BS, soft, non-tender Ext: no cyanosis, no calf tenderness Neuro: A&O x 3, no focal deficits noted, normal affect Skin: warm, dry Principal Diagnosis Chest pain CAD Diabetes type 2 Hypertension Discharge Exam General- No acute distress Head- atraumatic Eyes- PERRL, EOMI, ENT- oropharynx clear Neck- supple, no JVD Lungs- No wheezing Heart- regular rhythm; no murmur Abdomen- normal bowel sounds, soft, nontender Extremities- no calf tenderness, no hematoma in right wrist area Neuro- alert, oriented x 3; PERRL, EOMI; no facial palsy; no dysarthria Skin- warm & dry Discharge Data Allergies Allergy/AdvReac Type Severity Reaction Status Date / Time lidocaine Allergy Intermediate HIVES Verified 06/01/18 16:22 procaine Allergy Intermediate HIVES Verified 06/01/18 16:22 Penicillins Allergy Mild HAD NO Verified 06/01/18 16:22 PROBLEM WITH ZOSYN strawberry Allergy Mild HIVES Verified 06/01/18 16:22 cephalexin AdvReac Intermediate YEAST Verified 06/01/18 16:22 INFECTIONS egg AdvReac Intermediate GI UPSET Verified 06/01/18 16:22 mivacurium AdvReac Mild STOMACH Verified 06/01/18 16:22 PAINS tramadol AdvReac Unknown SEIZURES Verified 06/01/18 16:22 azithromycin AdvReac Unknown Verified 06/01/18 16:22 Consultations 06/01/18 18:06 ED Decision to Admit Stat 06/01/18 20:14 Consult Cardiology Routine Procedures Performed Operation Date: 06/03/18 09:00 Actual Procedures p Cath, Left with Cors and Vent - Paresh Gonzales MD s Cineradiography w/Routine Exam - Paresh Gonzales MD Ordered Studies 06/03/18 07:56 CL Cath Imgs for PACS use only Routine XR chest 1V portable CLINICAL HISTORY: Chest Pain dyspnea COMPARISON STUDY: 05/30/2018 FINDINGS: The bones soft tissues and hemidiaphragms are normal. The cardiomediastinal silhouette is normal. The lungs are clear. The pulmonary vasculature is normal. IMPRESSION: Negative chest. Hospital Course (1) Chest pain: (2) Coronary artery disease: Present on admission with Left sided chest pain radiated to Left arm and neck associated with SOB Hx CAD, NSTEMI in 2017 s/p cardiac cath and 2 ROJAS to L circumflex and 1 ROJAS to ramus with known 40-50% plaque to LAD Received Nitro and Asa in [facility] Currently denies any chest pain Troponin x3 sets negative EKG showed no ischemic changes Echo showed no wall motion abnormality Cardiology on board S/P cardiac cath done today showed widely patent stents prior intervened vessels ramus intermedius and left circumflex. There is very distal vessel disease of 80% within the posterior descending artery vessel small caliber at this point Continue plavix, aspirin,and statin Metoprolol increased to BID OK from cardiology standpoint to discharge today (3) Diabetes mellitus, type 2: Recent A1c: 7.5 on 06/02/18 Hold glipizide, metformin while in hospital Novolog, Lantus sliding scale per protocol Resume Glipizide and metformin after 48hr post cardiac cath Monitor BS (4) Hypertension: BP stable Continue metoprolol Resume lisinopril on discharge (5) Dyslipidemia: LDL 130 , chol 191, HDL 28 Continue atorvastatin 80mg (6) Seizure disorder: Denies recent seizure Continue keppra (7) Asthma: No acute exacerbation On albuterol neb prn Stable (8) Depression: Continue buspirone, lexapro (9) GERD (gastroesophageal reflux disease): continue PPI, H2 vijay (10) History of drug abuse: UDS negative Stable DVT Prophylaxis On Heparin SQ CODE STATUS Full Code Disposition Discharge today to correctional facility Total Time Total Time Spent Total Time Spent (In Minutes): 35 minutes Total Time Includes: Examination of the Patient, Discharge Planning, Medication Reconciliation, Communication With Other Providers and Other Discharge Plan Discharge Items Patient Disposition: Correctional Facility Reason For Visit: CP Discharge Diagnosis: Chest pain CAD Diabetes type 2 Hypertension Discharge Goals: Decrease discomfort, Improve disease control, Improve function and Increase independence Activity: Resume your previous activity Activity Comment: as tolerated Non-emergency contact: Primary Care Provider Call non-emergency contact if: you have any medication questions, your wound has increased redness and your wound has increased drainage Diet: Carb Consistent or DM2 and Heart Healthy Addtl Provider Instructions: Follow up with your primary care provider Metformin and glipizide can resume after 48hr ( ) due to contrast during cardiac cath Keep the area for the cardiac cath clean and dry to avoid any infection Do not use creams, lotions or ointment on the wound site Do not take a bath, tub soak, go in a Jacuzzi, or swim in a pool or [place] for one week after the procedure. Do not participate in strenuous activities for 3 days after the procedure. Gradually increase your activities until you reach your normal activity level within two days after the procedure. Avoid heavy lifting (more than 10 pounds) and pushing or pulling heavy objects for the first 5 days after the procedure. Prescriptions: New metoprolol tartrate 50 mg tablet 50 mg PO BID 30 Days Qty: 60 RF: 0 Continue levetiracetam [Keppra] 500 mg Tablet 500 mg PO BID RF: 0 ibuprofen 200 mg Capsule 400 mg PO BID PRN (Reason: Pain) RF: 0 clopidogrel [Plavix] 75 mg Tablet 75 mg PO DAILY RF: 0 trazodone 100 mg tablet 250 mg PO HS RF: 0 metformin 1,000 mg Tablet 1,000 mg PO BID RF: 0 ranitidine HCl 150 mg Tablet 300 mg PO HS PRN (Reason: Heartburn) RF: 0 lisinopril [Zestril] 10 mg tablet 10 mg PO DAILY RF: 0 glipizide 5 mg Tablet 5 mg PO DAILY RF: 0 escitalopram oxalate [Lexapro] 20 mg tablet 20 mg PO DAILY RF: 0 omeprazole 20 mg Tablet,Delayed Release (Dr/Ec) 20 mg PO BID RF: 0 trazodone 50 mg Tablet 25 mg PO DAILY RF: 0 buspirone 30 mg Tablet 30 mg PO BID RF: 0 atorvastatin 80 mg Tablet 80 mg PO PM 30 Days Qty: 0 RF: 0 aspirin 81 mg Tablet,Delayed Release (Dr/Ec) 81 mg PO DAILY 30 Days Qty: 30 RF: 0 Discontinued metoprolol tartrate 25 mg Tablet 25 mg PO DAILY RF: 0 Stand-Alone Forms: Medication Instructions Krames/Other Patient Handouts: Metoprolol Tartrate Oral tablet, Aspirin Chewable tablet, Angina, Catheterization Cardiac, Heart Risk, Heart Attack Warning Signs Admission Data Admit Date/Time: 06/01/18 18:51 Attending Provider: Debora Moon Admit Provider: Debora Moon Primary Care Provider: [facility], [facility], Other Providers: Debora Moon ; Paresh Gonzales Service: Telemetry Medical Other Interventions: Discharge Summary Assessment (RN) Last Done: 06/03/18 18:02 [place] Date/Time DO NOT enter until pt leaves facility: 06/03/18 18:06
== END 2018-06-03 18:06 ==
LOC: 2N 15:58 → ED 15:58 → 2N 20:03 → 2E 06-03 10:02

== ENCOUNTER 2018-12-19 11:43 | Inpatient (IN) ==
[2018-12-19] MEDS ORDERED: NITROGLYCERIN 2% OINTMENT 30GM TUBE EXT STA (11:56)
[2018-12-19 12:08] LABS: Basophils # (auto) 0.05 K/uL (0-0.2); Basophils % (auto) 0.4 %; Eosinophils # (auto) 0.29 K/uL (0-0.5); Eosinophils % (auto) 2.5 %; Hematocrit (blood only) 38.7 % (37-47); Hemoglobin 12.8 g/dL (12.0-16.0); Immature Granulocytes # (auto) 0.03 K/uL (0.00-0.02); Immature Granulocytes % (auto) 0.3 %; Lymphocytes # (auto) 3.27 K/uL (1.2-3.4); Lymphocytes % (auto) 28.4 %; Mean Corpuscular Hemoglobin 28.5 pg (25-34); Mean Corpuscular Hgb Conc 33.1 g/dL (32-36); Mean Corpuscular Volume 86.2 fL (80-100); Mean Platelet Volume 11.7 fL (7.4-10.4); Monocytes # (auto) 0.63 K/uL (0.11-0.59); Monocytes % (auto) 5.5 %; Neutrophils # (auto) 7.25 K/uL (1.4-6.5); Neutrophils % (auto) 62.9 %; Platelet Count 273 K/uL (130-400); RDW Coefficient of Variation 16.3 % (11.5-14.5); RDW Standard Deviation 51.7 fL (36.4-46.3); Red Blood Count 4.49 M/uL (4.2-5.4); White Blood Count 11.52 K/uL (4.8-10.8)
[2018-12-19] MEDS ORDERED: ONDANSETRON INJ 2 MG/ML 2 ML VIAL IV STA (12:11)
[2018-12-19] MEDS ORDERED: MoRPHine SULFATE 4 MG/ML 1 ML CARP\\VIAL IV STA (12:11)
[2018-12-19 12:30] LABS: Alanine Aminotransferase 252 U/L (12-78); Albumin Level 3.4 gm/dl (3.4-5.0); Aspartate Aminotransferase 68 U/L (15-37); BUN Creatinine Ratio 13.2 (10-20); Blood Urea Nitrogen 12 mg/dl (7-18); Calcium 8.8 mg/dl (8.5-10.1); Carbon Dioxide 21 mmol/L (21-32); Chloride 109 mmol/L (98-107); Creatinine Clr Calc Pharmacy 91.8 ml/min; Est GFR (African American) 95.3; Est GFR (Non-African American) 82.2; Glucose 284 mg/dl (70-99); Lipase 291 U/L (73-393); Potassium 4.1 mmol/L (3.5-5.1); Sodium 138 mmol/L (136-145)
[2018-12-19 12:33] LABS: Pregnancy Test, Serum Negative (Negative)
[2018-12-19 12:37] LABS: Alkaline Phosphatase 95 U/L (45-117); Bilirubin,Total 0.4 mg/dl (0.2-1); Creatine Kinase 130 U/L (26-192); Creatine Kinase MB 6.1 ng/ml (0.5-3.6); Globulin 3.4 gm/dl (2.5-4.0); Total Protein 6.8 gm/dl (6.4-8.2); Troponin I < 0.015 ng/ml (0-0.045)
--- NOTE | 2018-12-19 12:47 | XRay Report ---
XR chest 1V portable CLINICAL HISTORY: Chest Pain dyspnea COMPARISON STUDY: 06/01/2018 FINDINGS: The bones soft tissues and hemidiaphragms are normal. The cardiomediastinal silhouette is n ormal. The lungs are clear. The pulmonary vasculature is normal. IMPRESSION: Negative chest. The above report was generated using voice recognition software. It may contain grammatical, syntax or spelling errors. Electronically signed by: Dale Art M.D. 12/19/2018 12:46 PM
[2018-12-19] MEDS ORDERED: OPTIRAY 320 125ml IV PRN (13:54)
--- NOTE | 2018-12-19 14:09 | CT Scan Report ---
CT ANGIOGRAM OF THE CHEST CLINICAL HISTORY: Atypical chest pain. Possible pulmonary embolism. COMPARISON STUDY: 08/30/2017, chest x-ray dated 11/29/2018 TECHNIQUE: Following the IV administration of 119 mL of [id number]-[id number], CT angiogram of the thorax was p erformed from the thoracic inlet to the lung bases utilizing the pulmonary embolus protocol. Images a re reviewed in the axial, sagittal, and coronal planes. IV contrast was administered without complica tion. MIP imaging was performed. A dose lowering technique was utilized adhering to the principles o f ALARA. CT DOSE: 1436.40 mGy.cm FINDINGS: There is a stable exophytic 11 mm rim calcified nodule arising from the lower pole the left lobe of the thyroid. Atheromatous changes involve the right proximal subclavian artery, similar to t he prior study. No pathologically enlarged axillary mediastinal or hilar lymph nodes were visualized. There was no evidence of thoracic aortic dilatation. There were no pulmonary artery filling defects to indicate acute pulmonary embolism. No pleural effusions are visualized. There are a few scattered lung cysts. There is subtle groundglass attenuation the lungs and a lower l obe predominance. There is an area of focal emphysema within the left lower lobe unchanged from the p rior study. There is no lobar consolidation. There is been near complete interval resolution of the p reviously identified extensive bilateral pulmonary airspace opacities IMPRESSION: 1. No evidence of acute pulmonary embolism 2. Interval resolution of the previously identified mediastinal and hilar adenopathy 3. Interval resolution of the extensive bilateral pulmonary airspace opacities 4. Subtle nonspecific groundglass attenuation the lungs with a lower lung zone predominance 5. Scattered lung cysts and blebs Electronically signed by: Jayro Duke M.D. 12/19/2018 2:08 PM
--- NOTE | 2018-12-19 14:15 | CT Scan Report ---
ABDOMEN AND PELVIS CT WITH IV CONTRAST HISTORY: Acute chest pain with elevated liver enzymes Pt c/o chest pain, elevated liver enzymes TECHNIQUE: Multiaxial CT images of the abdomen and pelvis were performed following the use of intrave nous contrast. A dose lowering technique was utilized adhering to the principles of ALARA. COMPARISON STUDY: CTA of the chest of same day, CT abdomen and pelvis 01/06/2018 FINDINGS: Mild mosaic attenuation of the lung bases is suggestive of air trapping. There are a few thin-walled cyst of the lung bases also noted. No pneumatosis or pneumoperitoneum. The imaged inferior cardiac ch ambers appear unremarkable. Coronary arterial calcifications are noted. Prior cholecystectomy. Mild i ntrahepatic and extrahepatic biliary ductal dilation is noted with the common bile duct measuring up to 9 mm. No filling defects or obstructing lesions of the biliary tree. These findings are likely on a postsurgical basis. Liver otherwise appears unremarkable. Spleen is enlarged measuring up to 15.5 c m in length. Pancreas and adrenal glands appear unremarkable. Patency of the hepatic and portal veins duplicated renal collecting system on the right with 2 ureters, likely emerging along the mid to dis kimberlee portions. Kidneys are otherwise unremarkable. Urinary bladder, uterus and adnexa are within cassia l limits. Mild to moderate mixed plaque about the aorta without aneurysm. Nonspecific mildly enlarged precaval lymph node measures up to 1.37 m in short axis. Mild wall thickening of the distal esophagus with small hiatal hernia. No bowel obstruction. Moderate formed stool of the rectum and sigmoid. Colonic diverticulosis without CT evidence of acute divertic ulitis. No definite bowel wall thickening identified. Normal appendix. No ascites or mesenteric infla mmation. Soft tissues are unremarkable. Bones appear to be intact. Laminectomy changes with posterior interbody gale and screw fusion is noted extending from L4-S1. Discectomy changes at L5-S1. Posterior disc osteophyte complex noted at L4-L5. IMPRESSION: 1. No acute intra-abdominal or intrapelvic abnormality identified. 2. No bowel obstruction or bowel wall thickening. Normal appendix. 3. Colonic diverticulosis without acute diverticulitis. 4. Mild intrahepatic and extrahepatic biliary ductal dilation with cholecystectomy. Findings are like ly postsurgical. Correlate with laboratory analysis. 5. Mild wall thickening of the distal esophagus with small hiatal hernia. 6. 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 Electronically signed by: Isidro Eli M.D. 12/19/2018 2:14 PM
--- NOTE | 2018-12-19 14:32 | Ultrasound Report ---
US abdomen limited HISTORY: Pain. Nausea. Pt c/o RUQ abd pain. COMPARISON: None. FINDINGS: Pancreas: The pancreas demonstrates a normal echotexture. Liver: Unremarkable. Gallbladder: Prior cholecystectomy CBD: 6 mm Right kidney: No hydronephrosis. IMPRESSION: Negative study postcholecystectomy. The above report was generated using voice recognition software. It may contain grammatical, syntax or spelling errors. Electronically signed by: Dale Art M.D. 12/19/2018 2:31 PM
[2018-12-19 14:51] LABS: Appearance Urine Clear (Clear); Bilirubin Urine Negative (Negative); Blood Urine Negative (Negative); Color Urine Yellow; Glucose Urine UA 2+ (Negative); Ketones Urine Negative (Negative); Leukocyte Esterase Urine Negative (Negative); Nitrite Urine Negative (Negative); Protein Urine Negative (Negative); Specific Gravity Urine 1.015 (1.000-1.030); Urobilinogen Urine Negative (Negative); pH Urine 6.5 (4.5-7.5)
--- NOTE | 2018-12-19 15:20 | Emergency Department Note ---
Entered by Jordan Smith acting as a scribe for Johan Che MD History of Present Illness General Chief complaint: Chest Pain Time Seen by Provider: 12/19/18 11:48 Source: patient and EMS History of Present Illness Onset (ago): hour(s) (this morning) Location: chest Pain Consistency: + constant Current Pain Intensity: 5 Relieved By: + medication (nitrogylcerin) Associated symptoms: no shortness of breath The patient is a 38 y/o female who presents to the ED w/ CC of constant chest pain beginning this morning. EMS states that she was given aspirin before arrival, and 2 doses of nitroglycerin in the ambulance which took the pain from an 8/10 to a 5/10, but the pain has since returned. Patient states she has a history of heart problems, including 3 stents, the most recent being placed on November 12, and an AK. EMS reports that she is currently on Plavix, but [facility] resulted in her not being able to take them for 3 weeks. She denies shortness of breath. Home Medications Home Medications Medication Instructions Recorded Confirmed Type escitalopram oxalate [Lexapro] 20 mg PO DAILY 05/30/18 12/19/18 History ibuprofen 400 mg PO BID PRN 05/30/18 12/19/18 History levetiracetam [Keppra] 500 mg PO BID 05/30/18 12/19/18 History trazodone 250 mg PO HS 05/30/18 12/19/18 History aspirin 81 mg PO DAILY 09/08/18 12/19/18 History glipizide 10 mg PO DAILY 09/08/18 12/19/18 History lisinopril 5 mg PO DAILY 09/08/18 12/19/18 History buspirone 30 mg PO BID 12/19/18 12/19/18 History gabapentin 600 mg PO TID 12/19/18 12/19/18 History liraglutide [Victoza 3-Zac] 0.6 mg SUBCUT DAILY 12/19/18 12/19/18 History metformin 1,000 mg PO BID 12/19/18 12/19/18 History metoprolol tartrate 25 mg PO BID 12/19/18 12/19/18 History omeprazole 20 mg PO DAILY 12/19/18 12/19/18 History simvastatin 40 mg PO DAILY 12/19/18 12/19/18 History Allergies Allergy/AdvReac Type Severity Reaction Status Date / Time lidocaine Allergy Intermediate HIVES Verified 12/19/18 12:47 procaine Allergy Intermediate HIVES Verified 12/19/18 12:47 Penicillins Allergy Mild HAD NO Verified 12/19/18 12:47 PROBLEM WITH ZOSYN strawberry Allergy Mild HIVES Verified 12/19/18 12:47 cephalexin AdvReac Intermediate YEAST Verified 12/19/18 12:47 INFECTIONS egg AdvReac Intermediate GI UPSET Verified 12/19/18 12:47 mivacurium AdvReac Mild STOMACH Verified 12/19/18 12:47 PAINS tramadol AdvReac Unknown SEIZURES Verified 12/19/18 12:47 azithromycin AdvReac Unknown Verified 12/19/18 12:47 Past Med/Surg History Medical History History of drug abuse (Chronic) Depression (Chronic) GERD (gastroesophageal reflux disease) (Chronic) Seizure disorder (Chronic) Coronary artery disease (Chronic) Diabetes mellitus, type 2 (Chronic) Hypertension (Chronic) Hepatitis C (Chronic) "Antibiotic screen positive, quantitative RNA positive 08/30/17" Dyslipidemia (Chronic) History of renal calculi (Chronic) Asthma (Chronic) History of DVT (deep vein thrombosis) (Chronic) Hepatosplenomegaly (Chronic) Acute hypoxemic respiratory failure (Resolved) Fungemia (Resolved) Soft tissue abscess of suprapubic region (Resolved) Pneumonitis (Resolved) Sepsis (Resolved) CAD (coronary artery disease) DVT (deep venous thrombosis) Diabetes Surgical History History of lumbar spinal fusion (Resolved) Hx of tonsillectomy (Resolved) History of carpal tunnel surgery (Resolved) History of cardiac cath (Resolved) 2017- 1 ROJAS to ramus, 2 ROJAS to L circumflex. 40-50% plaque to LAD Status post cholecystectomy (Chronic) Family History Other Diabetes Heart disease Hypertension Kidney stones Seizures Social History Preferred Language: Divehi Communication Ability: Effective Visual Impairment: No Limitations Hearing Ability: Normal [employer] [facility] Required: No Beliefs That Will Affect Care: None Current Living Situation: Other Current Living Situation Comment: [facility] Feels Safe at Home: Yes Smoking Status: Current every day smoker Tobacco Type: cigarettes ; Hx Alcohol Use: No Hx Substance Use: No Review of Systems See HPI for pertinent positives & negatives. and A total of 10 systems reviewed and were otherwise negative Physical Exam Vital Signs Vital Signs - 24 hr 12/19/18 11:45 12/19/18 11:52 12/19/18 12:00 Temperature 37.9 C H Temperature Source Oral Sepsis Recent Fever Within 48 Hours No Sepsis New/Unexplained Change in Mental Status No Sepsis Action Taken by Nursing No Action Required Pulse Oximetry Post Tiitration 98 Pulse Rate 87 79 75 Pulse Rate from SpO2 Sensor 80 74 Pulse Rhythm Regular Pulse Strength Normal Respiratory Rate 20 16 15 Respiratory Effort / Characteristics Non-Labored Spontaneous Respiratory Depth Normal Respiratory Pattern Regular Blood Pressure 111/82 132/76 111/82 Blood Pressure Mean 91 94 91 Blood Pressure Position Lying Pulse Oximetry 98 98 98 Oxygen Delivery Method Room Air 12/19/18 12:15 12/19/18 12:30 12/19/18 12:45 Temperature Temperature Source Sepsis Recent Fever Within 48 Hours Sepsis New/Unexplained Change in Mental Status Sepsis Action Taken by Nursing Pulse Oximetry Post Tiitration Pulse Rate 70 87 76 Pulse Rate from SpO2 Sensor 71 82 75 Pulse Rhythm Pulse Strength Respiratory Rate 23 34 H 25 H Respiratory Effort / Characteristics Respiratory Depth Respiratory Pattern Blood Pressure 109/72 Blood Pressure Mean 84 Blood Pressure Position Pulse Oximetry 97 99 97 Oxygen Delivery Method 12/19/18 13:00 12/19/18 13:15 12/19/18 13:30 Temperature Temperature Source Sepsis Recent Fever Within 48 Hours Sepsis New/Unexplained Change in Mental Status Sepsis Action Taken by Nursing Pulse Oximetry Post Tiitration Pulse Rate 97 H 78 77 Pulse Rate from SpO2 Sensor 77 78 Pulse Rhythm Pulse Strength Respiratory Rate 17 24 Respiratory Effort / Characteristics Respiratory Depth Respiratory Pattern Blood Pressure 107/77 134/89 Blood Pressure Mean 87 104 Blood Pressure Position Pulse Oximetry 98 97 Oxygen Delivery Method GENERAL: Awake, alert, well-appearing, in no acute distress HENT: Normocephalic, atraumatic. Oropharynx unremarkable. EYES: Normal conjunctiva. Sclera non-icteric. NECK: Supple. No nuchal rigidity. FROM. No JVD. RESPIRATORY: Clear to auscultation. CARDIAC: Regular rate, normal rhythm. Extremities warm and well perfused. Pulses equal. ABDOMEN: Soft, non-distended. No tenderness to palpation. No rebound or guarding. No masses. RECTAL: Deferred. MUSCULOSKELETAL: Chest examination reveals no tenderness. The back is symmetrical on inspection without obvious abnormality. There is no CVA tenderness to palpation. No joint edema. LOWER EXTREMITIES: Calves are equal size bilaterally and non-tender. No edema. No discoloration. NEURO: Normal sensorium. No sensory or motor deficits noted. SKIN: No rash or jaundice noted. Course 1152: Past medical records reviewed. The patient was evaluated in room B07. A complete history and physical exam was performed. 1418: I reviewed the patient's case with Caroline Perez PA-C, [facility] Hospitalist. She will evaluate the patient for further management. Administered Medications Ioversol (Optiray 320 125ml) 119 ml IV ONCE PRN PRN Reason: Interaction Checking Stop: 12/23/18 13:53 Last Admin: 12/19/18 13:55 Dose: 119 ml Documented by: [id number] Discontinued Medications Morphine Sulfate (Morphine Sulfate) 4 mg IV NOW STA Stop: 12/19/18 12:12 Last Admin: 12/19/18 12:19 Dose: 4 mg Documented by: [id number] Nitroglycerin (Nitro-Bid 2%) 1 inch EXT NOW STA Stop: 12/19/18 11:57 Last Admin: 12/19/18 12:19 Dose: 1 inch Documented by: [id number] Ondansetron HCl (Zofran) 4 mg IV NOW STA Stop: 12/19/18 12:12 Last Admin: 12/19/18 12:19 Dose: 4 mg Documented by: [id number] Medical Decision Making Differential Diagnosis Differential diagnoses includes but is not limited to acute coronary syndrome, myocardial infarction, pericarditis, pulmonary embolus, aortic dissection, pneumonia, pneumothorax, musculoskeletal, shingles, esophageal. Medical Records Attestation: I reviewed the patient's medical records. Home Medications Current Medication List: was personally reviewed by me Laboratory Data Attestation: I reviewed the patient's lab results. Result diagrams: 12/19/18 11:27 12/19/18 11:27 Lab Results 12/19/18 12/19/18 12/19/18 Range/Units 11:27 11:27 11:27 WBC 11.52 H (4.8-10.8) K/uL RBC 4.49 (4.2-5.4) M/uL Hgb 12.8 (12.0-16.0) g/dL Hct 38.7 (37-47) % MCV 86.2 (80-100) fL MCH 28.5 (25-34) pg MCHC 33.1 (32-36) g/dL RDW Std Deviation 51.7 H (36.4-46.3) fL RDW Coeff of Hannah 16.3 H (11.5-14.5) % Plt Count 273 (130-400) K/uL MPV 11.7 H (7.4-10.4) fL Immature Gran % (Auto) 0.3 % Neut % (Auto) 62.9 % Lymph % (Auto) 28.4 % [place] % (Auto) 5.5 % Eos % (Auto) 2.5 % Baso % (Auto) 0.4 % Immature Gran # (Auto) 0.03 H (0.00-0.02) K/uL Neut # (Auto) 7.25 H (1.4-6.5) K/uL Lymph # (Auto) 3.27 (1.2-3.4) K/uL [place] # (Auto) 0.63 H (0.11-0.59) K/uL Eos # (Auto) 0.29 (0-0.5) K/uL Baso # (Auto) 0.05 (0-0.2) K/uL Sodium 138 (136-145) mmol/L Potassium 4.1 (3.5-5.1) mmol/L Chloride 109 H (98-107) mmol/L Carbon Dioxide 21 (21-32) mmol/L Anion Gap 8.0 (3-11) BUN 12 (7-18) mg/dl Creatinine 0.88 (0.6-1.2) mg/dl Est Cr Clr Drug Dosing 91.8 ml/min Est GFR ( Amer) 95.3 Est GFR (Non-Af Amer) 82.2 BUN/Creatinine Ratio 13.2 (10-20) Glucose 284 H (70-99) mg/dl Calcium 8.8 (8.5-10.1) mg/dl Total Bilirubin 0.4 (0.2-1) mg/dl AST 68 H (15-37) U/L ALT 252 H (12-78) U/L Alkaline Phosphatase 95 (45-117) U/L Total Creatine Kinase 130 (26-192) U/L CK-MB (CK-2) 6.1 H (0.5-3.6) ng/ml CK/CKMB % Calc 4.7 H (0-3.0) Troponin I < 0.015 (0-0.045) ng/ml Total Protein 6.8 (6.4-8.2) gm/dl Albumin 3.4 (3.4-5.0) gm/dl Globulin 3.4 (2.5-4.0) gm/dl Albumin/Globulin Ratio 1.0 (0.9-2) Lipase 291 (73-393) U/L HCG, Qual Negative (Negative) Urine Color Urine Appearance (Clear) Urine pH (4.5-7.5) Ur Specific [place] (1.000-1.030) Urine Protein (Negative) Urine Glucose (UA) (Negative) Urine Ketones (Negative) Urine Blood (Negative) Urine Nitrite (Negative) Urine Bilirubin (Negative) Urine Urobilinogen (Negative) Ur Leukocyte Esterase (Negative) 12/19/18 Range/Units 13:25 WBC (4.8-10.8) K/uL RBC (4.2-5.4) M/uL Hgb (12.0-16.0) g/dL Hct (37-47) % MCV (80-100) fL MCH (25-34) pg MCHC (32-36) g/dL RDW Std Deviation (36.4-46.3) fL RDW Coeff of Hannah (11.5-14.5) % Plt Count (130-400) K/uL MPV (7.4-10.4) fL Immature Gran % (Auto) % Neut % (Auto) % Lymph % (Auto) % [place] % (Auto) % Eos % (Auto) % Baso % (Auto) % Immature Gran # (Auto) (0.00-0.02) K/uL Neut # (Auto) (1.4-6.5) K/uL Lymph # (Auto) (1.2-3.4) K/uL [place] # (Auto) (0.11-0.59) K/uL Eos # (Auto) (0-0.5) K/uL Baso # (Auto) (0-0.2) K/uL Sodium (136-145) mmol/L Potassium (3.5-5.1) mmol/L Chloride (98-107) mmol/L Carbon Dioxide (21-32) mmol/L Anion Gap (3-11) BUN (7-18) mg/dl Creatinine (0.6-1.2) mg/dl Est Cr Clr Drug Dosing ml/min Est GFR ( Amer) Est GFR (Non-Af Amer) BUN/Creatinine Ratio (10-20) Glucose (70-99) mg/dl Calcium (8.5-10.1) mg/dl Total Bilirubin (0.2-1) mg/dl AST (15-37) U/L ALT (12-78) U/L Alkaline Phosphatase (45-117) U/L Total Creatine Kinase (26-192) U/L CK-MB (CK-2) (0.5-3.6) ng/ml CK/CKMB % Calc (0-3.0) Troponin I (0-0.045) ng/ml Total Protein (6.4-8.2) gm/dl Albumin (3.4-5.0) gm/dl Globulin (2.5-4.0) gm/dl Albumin/Globulin Ratio (0.9-2) Lipase (73-393) U/L HCG, Qual (Negative) Urine Color Yellow Urine Appearance Clear (Clear) Urine pH 6.5 (4.5-7.5) Ur Specific [place] 1.015 (1.000-1.030) Urine Protein Negative (Negative) Urine Glucose (UA) 2+ H (Negative) Urine Ketones Negative (Negative) Urine Blood Negative (Negative) Urine Nitrite Negative (Negative) Urine Bilirubin Negative (Negative) Urine Urobilinogen Negative (Negative) Ur Leukocyte Esterase Negative (Negative) Imaging Data Radiologist's Impression: Radiology results as stated below per my review and the radiologist's interpretation: XR chest 1V portable CLINICAL HISTORY: Chest Pain dyspnea COMPARISON STUDY: 06/01/2018 FINDINGS: The bones soft tissues and hemidiaphragms are normal. The cardiomediastinal silhouette is normal. The lungs are clear. The pulmonary vasculature is normal. IMPRESSION: Negative chest. The above report was generated using voice recognition software. It may contain grammatical, syntax or spelling errors. Electronically signed by: Dale Art M.D. 12/19/2018 12:[address] ANGIOGRAM OF THE CHEST CLINICAL HISTORY: Atypical chest pain. Possible pulmonary embolism. COMPARISON STUDY: 08/30/2017, chest x-ray dated 11/29/2018 TECHNIQUE: Following the IV administration of 119 mL of [id number]-[id number], CT angiogram of the thorax was performed from the thoracic inlet to the lung bases utilizing the pulmonary embolus protocol. Images are reviewed in the axial, sagittal, and coronal planes. IV contrast was administered without complication. MIP imaging was performed. A dose lowering technique was utilized adhering to the principles of ALARA. CT DOSE: 1436.40 mGy.cm FINDINGS: There is a stable exophytic 11 mm rim calcified nodule arising from the lower pole the left lobe of the thyroid. Atheromatous changes involve the right proximal subclavian artery, similar to the prior study. No pathologically enlarged axillary mediastinal or hilar lymph nodes were visualized. There was no evidence of thoracic aortic dilatation. There were no pulmonary artery filling defects to indicate acute pulmonary embolism. No pleural effusions are visualized. There are a few scattered lung cysts. There is subtle groundglass attenuation the lungs and a lower lobe predominance. There is an area of focal emphysema wit hin the left lower lobe unchanged from the prior study. There is no lobar consolidation. There is been near complete interval resolution of the previously identified extensive bilateral pulmonary airspace opacities IMPRESSION: 1. No evidence of acute pulmonary embolism 2. Interval resolution of the previously identified mediastinal and hilar adenopathy 3. Interval resolution of the extensive bilateral pulmonary airspace opacities 4. Subtle nonspecific groundglass attenuation the lungs with a lower lung zone predominance 5. Scattered lung cysts and blebs Electronically signed by: Jayro Duke M.D. 12/19/2018 2:08 PM ABDOMEN AND PELVIS CT WITH IV CONTRAST HISTORY: Acute chest pain with elevated liver enzymes Pt c/o chest pain, elevated liver enzymes TECHNIQUE: Multiaxial CT images of the abdomen and pelvis were performed following the use of intravenous contrast. A dose lowering technique was utilized adhering to the principles of ALARA. COMPARISON STUDY: CTA of the chest of same day, CT abdomen and pelvis 01/06/2018 FINDINGS: Mild mosaic attenuation of the lung bases is suggestive of air trapping. There are a few thin-walled cyst of the lung bases also noted. No pneumatosis or pneumoperitoneum. The imaged inferior cardiac chambers appear unremarkable. Coronary arterial calcifications are noted. Prior cholecystectomy. Mild intrahepatic and extrahepatic biliary ductal dilation is noted with the common bile duct measuring up to 9 mm. No filling defects or obstructing lesions of the biliary tree. These findings are likely on a postsurgical basis. Liver otherwise appears unremarkable. Spleen is enlarged measuring up to 15.5 cm in length. Pancreas and adrenal glands appear unremarkable. Patency of the hepatic and portal veins duplicated renal collecting system on the right with 2 ureters, likely emerging along the mid to distal portions. Kidneys are otherwise unremarkable. Urinary bladder, uterus and adnexa are within normal limits. Mild to moderate mixed plaque about the aorta without aneurysm. Nonspecific mildly enlarged precaval lymph node measures up to 1.37 m in short axis. Mild wall thickening of the distal esophagus with small hiatal hernia. No bowel obstruction. Moderate formed stool of the rectum and sigmoid. Colonic diverticulosis without CT evidence of acute diverticulitis. No definite bowel wall thickening identified. Normal appendix. No ascites or mesenteric inflammation. Soft tissues are unremarkable. Bones appear to be intact. Laminectomy changes with posterior interbody gale and screw fusion is noted extending from L4-S1. Discectomy changes at L5-S1. Posterior disc osteophyte complex noted at L4-L5. IMPRESSION: 1. No acute intra-abdominal or intrapelvic abnormality identified. 2. No bowel obstruction or bowel wall thickening. Normal appendix. 3. Colonic diverticulosis without acute diverticulitis. 4. Mild intrahepatic and extrahepatic biliary ductal dilation with cholecystectomy. Findings are likely postsurgical. Correlate with laboratory analysis. 5. Mild wall thickening of the distal esophagus with small hiatal hernia. 6. 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 Electronically signed by: Isidro Eli M.D. 12/19/2018 2:14 PM US abdomen limited HISTORY: Pain. Nausea. Pt c/o RUQ abd pain. COMPARISON: None. FINDINGS: Pancreas: The pancreas demonstrates a normal echotexture. Liver: Unremarkable. Gallbladder: Prior cholecystectomy CBD: 6 mm Right kidney: No hydronephrosis. IMPRESSION: Negative study postcholecystectomy. The above report was generated using voice recognition software. It may contain grammatical, syntax or spelling errors Electronically signed by: Dale Art M.D. 12/19/2018 2:31 PM ECG Data Attestation: I personally reviewed and interpreted this ECG as follows: Indication: chest pain Rate (beats per minute): 81 Rhythm: normal sinus Findings: no ST depression, no ST elevation and no acute ischemic change Blood Pressure Blood Pressure Findings: Elevated blood pressure Blood Pressure Disposition: further management by hospitalist MDM Narrative This is a 38-year-old female who presents emergency department complaining of chest pain. Patient is on Plavix which was stopped approximately 3 weeks ago when she went to care home. She also has a history of [address] Based on this I feel the patient should be admitted to the hospital. She was given nitro for pain with some improvement in her pain. The patient does have a slight elevation of the liver enzymes and was sent for a CAT scan of the chest as well as abdomen and pelvis. At this point I feel the patient should be admitted to the hospital and discussed her case with the hospitalist service who readily admitted the patient. Patient was also given morphine and Zofran for her pain. Patient was in agreement with the treatment plan. Impression & Plan Acute chest pain Discharge Plan Visit Data Chief Complaint: Chest Pain ED Provider: Johan Che Discharge Problem: Acute chest pain Patient Disposition: Being Evaluated by Hospitalist Forms Stand Alone Forms: Call Back Authorization, [facility] Prescriptions Prescriptions: No Action levetiracetam [Keppra] 500 mg Tablet 500 mg PO BID RF: 0 ibuprofen 200 mg Capsule 400 mg PO BID PRN (Reason: Pain) RF: 0 trazodone 100 mg tablet 250 mg PO HS RF: 0 escitalopram oxalate [Lexapro] 20 mg tablet 20 mg PO DAILY RF: 0 gabapentin 600 mg Tablet 600 mg PO TID RF: 0 simvastatin 40 mg Tablet 40 mg PO DAILY RF: 0 buspirone 30 mg Tablet 30 mg PO BID RF: 0 omeprazole 20 mg Capsule,Delayed Release(Dr/Ec) 20 mg PO DAILY RF: 0 metoprolol tartrate 25 mg Tablet 25 mg PO BID RF: 0 Victoza 3-Zac 0.6 mg/0.1 mL (18 mg/3 mL) Pen Injector 0.6 mg SUBCUT DAILY RF: 0 metformin 1,000 mg Tablet 1,000 mg PO BID RF: 0 aspirin 81 mg tablet,delayed release (DR/EC) 81 mg PO DAILY RF: 0 glipizide 10 mg Tablet 10 mg PO DAILY RF: 0 lisinopril 5 mg Tablet 5 mg PO DAILY RF: 0 Referrals Referrals: [facility] [Primary Care Provider] - The scribe's documentation has been prepared under my direction and personally reviewed by me in its entirety. I confirm that the note above accurately reflects all work, treatment, procedures, and medical decision making performed by me.
[2018-12-19] MEDS ORDERED: CLOPIDOGREL BISULFATE 75 MG TAB PO ONE (15:37)
--- NOTE | 2018-12-19 15:37 | History & Physical Report ---
Date of Service December 19, 2018 Assessment & Plan (1) Chest pain: This is a 38-year-old [facility] with a PMH of CAD (s/p ROJAS x 3 in 2017), DM II, hepatitis C, asthma, seizure disorder, depression, history of drug abuse and other medical problems listed below who pr esents with chest pain starting this morning. -Has history of CAD with ROJAS x 3 in 2017, repeat cath in May 2018 with evidence of patent stents, distal disease of 80% within PDA. Medical management was encouraged -Patient recently went to senior care 3 weeks ago, has not been receiving Plavix but has been receiving statin and baby aspirin -EKG with normal sinus rhythm, chest x-ray with no acute abnormalities. Initial troponin negative. Chest CTA without any acute evidence of PE but subtle nonspecific groundglass attenuation and scattered lung cysts and blebs -Given 1" ntg paste with some improvement of pain -Noted to have a cardiac murmur on previous admissions and had TTE that revealed abnormal aortic valve morphology with thickened aortic valve and partial fusion of the left coronary cusp and noncoronary cusp -Had repeat TTE in May, that showed mild aortic stenosis as well as mild aortic valve regurgitation -Continue aspirin 81mg daily, clopidogrel 75 mg daily, metoprolol 50 mg twice daily, and atorvastatin 80 mg daily -Consult cardiology (2) Fever: Initial temperature of 37.9 -CXR, CT abd/pelvis without evidence of infection -Gastroenteritis present in senior care, patient had diarrhea 3 days ago that is since resolved -Blood culture pending. Add antibiotics if appropriate -Tylenol PRN (3) Seizure disorder: No recent seizures. Continue Keppra (4) Hypertension: Normotensive -Resumed on previous Lopressor 50 mg twice daily dose, per Dr. Rutherford -Continue lisinopril (5) Diabetes mellitus, type 2: Most recent A1c 7.5 in May 2018 -Repeat a1c -Hold home agents -SSI while in-patient -BSG AC HS (6) GERD (gastroesophageal reflux disease): Continue PPI (7) Depression: Continue SSRI DVT Ppx: SQ heparin Code status: FULL PCP: Lukasz Dispo: Observation telemetry. Plan to return home once medically stable. Patient seen in collaboration with Dr. Smith. Please see addendum. History of Present Illness Chief Complaint: chest pain Primary Care Provider: [facility] This is a 38-year-old female [facility] with a PMH of CAD (s/p ROJAS x 3 in 2017), DM II, hepatitis C, asthma, seizure disorder, depression, history of drug abuse and other medical problems listed below who presents with chest pain starting this morning. Patient states the chest pain is left-sided and feels like someone is sitting on her chest. Has pain radiating to left shoulder and occasionally to jaw. Has had 5 episodes of chest pain today lasting approximately 5-20 minutes that is worse with exertion and improved with rest. Endorses fever, chills, nausea and intermittent shortness of breath. Denies lightheadedness, visual changes, sore throat, cough, wheezing, palpitations, shortness of breath, vomiting, abdominal pain, dysuria, diarrhea, constipation or lower extremity swelling. Patient follows with Dr. Iverson as an outpatient but went to presents 3 weeks ago. States she found out this morning and inform her that she has not been receiving Plavix for the past few weeks. Per med rec in [facility], patient also on metformin, Victoza, gabapentin, Nexium and Suboxone that she has not been receiving in [facility]. States that chest pain is similar to pain experienced during 2017 and 2018 admission when she underwent cardiac cath. Cardiac cath in May 2018 with evidence of patent stents, distal disease of 80% within PDA. Medical management was recommended, with Lopressor increased to twice daily. Denies IV drug use since 1.5 years ago. Smoked crack/cocaine 3 weeks ago, just prior to incarceration. In ED today, found to be mildly febrile at 37.9. Leukocytosis of 11.52. EKG with normal sinus rhythm, chest x-ray with no acute abnormalities. Initial troponin negative. Chest CTA without any acute evidence of PE but subtle nonspecific groundglass attenuation and scattered lung cysts and blebs. CT abdo men pelvis without acute abnormality, evidence of bowel obstruction or diverticulitis. Mild wall thickening of the distal esophagus with small hiatal hernia. Abdomen ultrasound with negative study postcholecystectomy. Given 1" ntg paste but still chest pain has recurred. Allergies Allergy/AdvReac Type Severity Reaction Status Date / Time lidocaine Allergy Intermediate HIVES Verified 12/19/18 12:47 procaine Allergy Intermediate HIVES Verified 12/19/18 12:47 Penicillins Allergy Mild HAD NO Verified 12/19/18 12:47 PROBLEM WITH ZOSYN strawberry Allergy Mild HIVES Verified 12/19/18 12:47 cephalexin AdvReac Intermediate YEAST Verified 12/19/18 12:47 INFECTIONS egg AdvReac Intermediate GI UPSET Verified 12/19/18 12:47 tramadol AdvReac Intermediate SEIZURES Verified 12/20/18 12:17 mivacurium AdvReac Mild STOMACH Verified 12/19/18 12:47 PAINS azithromycin AdvReac Unknown Unknown Verified 12/20/18 12:17 Home Medications Home Medications Medication Instructions Recorded Confirmed Type escitalopram oxalate [Lexapro] 20 mg PO DAILY 05/30/18 12/19/18 History ibuprofen 400 mg PO BID PRN 05/30/18 12/19/18 History levetiracetam [Keppra] 500 mg PO BID 05/30/18 12/19/18 History trazodone 250 mg PO HS 05/30/18 12/19/18 History aspirin 81 mg PO DAILY 09/08/18 12/19/18 History glipizide 10 mg PO DAILY 09/08/18 12/19/18 History lisinopril 5 mg PO DAILY 09/08/18 12/19/18 History buspirone 30 mg PO BID 12/19/18 12/19/18 History gabapentin 600 mg PO TID 12/19/18 12/19/18 History liraglutide [Victoza 3-Zac] 0.6 mg SUBCUT DAILY 12/19/18 12/19/18 History metformin 1,000 mg PO BID 12/19/18 12/19/18 History metoprolol tartrate 25 mg PO BID 12/19/18 12/19/18 History omeprazole 20 mg PO DAILY 12/19/18 12/19/18 History simvastatin 40 mg PO DAILY 12/19/18 12/19/18 History Past Med/Surg History Medical History History of drug abuse (Chronic) Depression (Chronic) GERD (gastroesophageal reflux disease) (Chronic) Seizure disorder (Chronic) Coronary artery disease (Chronic) Diabetes mellitus, type 2 (Chronic) Hypertension (Chronic) Hepatitis C (Chronic) "Antibiotic screen positive, quantitative RNA positive 08/30/17" Dyslipidemia (Chronic) History of renal calculi (Chronic) Asthma (Chronic) History of DVT (deep vein thrombosis) (Chronic) Hepatosplenomegaly (Chronic) Surgical History History of lumbar spinal fusion (Resolved) Hx of tonsillectomy (Resolved) History of carpal tunnel surgery (Resolved) History of cardiac cath (Chronic) 2017- 1 ROJAS to ramus, 2 ROJAS to L circumflex. 40-50% plaque to LAD 2018- distal disease (80%) within PDA Status post cholecystectomy (Chronic) Family History Other Diabetes Heart disease Hypertension Kidney stones Seizures Social History Preferred Language: Vietnamese Communication Ability: Effective Visual Impairment: No Limitations Hearing Ability: Normal Him Clerk Required: No Beliefs That Will Affect Care: None Current Living Situation: Other Current Living Situation Comment: [facility] Feels Safe at Home: Yes Safety Concerns: Feels Safe At This Time Smoking Status: Former smoker Tobacco Type: cigarettes ; Cigarettes Per Day: 10 ; Do You Dip or Chew Tobacco: No ; Smoking End Date: 3 weeks ago ; Hx Alcohol Use: No Hx Substance Use: Yes substance use type: crack/cocaine Last Used Substance: Unknown Last Used Substance Other:: 3 weeks ago. Last used heroin 1.5 years ago Review of Systems Review of Systems: At least ten systems reviewed and negative except as noted in the HPI. Physical Exam Physical Exam: General Appearance: WD/WN, no apparent distress, resting com fortably Head: normocephalic, atraumatic Eyes: normal inspection, PERRL, EOMI ENT: hearing grossly normal, pharynx normal (moist mucous membranes) Neck: supple, no JVD, no adenopathy Respiratory/Chest: lungs clear to auscultation. No wheezes, rales or rhonchi. No respiratory distress or accessory muscle use Cardiovascular: regular rate, rhythm, systolic murmur heard throughout precordium, normal peripheral pulses, no BLE edema Abdomen/GI: normal bowel sounds, soft, RUQ and epigastric TTP but no guarding Extremities/Musculoskelatal: normal inspection, no calf tenderness, normal cap illary refill, no pedal edema Neurologic/Psych: alert, normal mood/affect, oriented x 3 Skin: normal color, warm/dry Results & Data Vital Signs (Past 12 Hours) Vital Signs Temp Pulse Resp BP Pulse Ox 12/19/18 15:30 77 113/78 97 12/19/18 15:15 75 99 12/19/18 15:00 76 98 12/19/18 14:51 88 98 12/19/18 13:30 77 24 134/89 97 12/19/18 13:15 78 17 98 12/19/18 13:00 97 H 107/77 12/19/18 12:45 76 25 H 97 12/19/18 12:30 87 34 H 109/72 99 12/19/18 12:15 70 23 97 12/19/18 12:00 75 15 111/82 98 12/19/18 11:52 79 16 132/76 98 12/19/18 11:45 37.9 C H 87 20 111/82 98 Laboratory Results Short CBC 12/19/18 Range/Units 11:27 WBC 11.52 H (4.8-10.8) K/uL Hgb 12.8 (12.0-16.0) g/dL Hct 38.7 (37-47) % Plt Count 273 (130-400) K/uL BMP 12/19/18 11:27 Sodium 138 Potassium 4.1 Chloride 109 H Carbon Dioxide 21 BUN 12 Creatinine 0.88 Glucose 284 H Calcium 8.8 Cardiac Enzymes 12/19/18 Range/Units 11:27 Total Creatine Kinase 130 (26-192) U/L CK-MB (CK-2) 6.1 H (0.5-3.6) ng/ml Troponin I < 0.015 (0-0.045) ng/ml Liver Function 12/19/18 Range/Units 11:27 Total Bilirubin 0.4 (0.2-1) mg/dl AST 68 H (15-37) U/L ALT 252 H (12-78) U/L Alkaline Phosphatase 95 (45-117) U/L Albumin 3.4 (3.4-5.0) gm/dl Urine 12/19/18 Range/Units 13:25 Urine Color Yellow Urine Appearance Clear (Clear) Urine pH 6.5 (4.5-7.5) Ur Specific Bowie 1.015 (1.000-1.030) Urine Protein Negative (Negative) Urine Glucose (UA) 2+ H (Negative) Diagnostic Findings CXR: IMPRESSION: Negative chest. Chest CTA: IMPRESSION: 1. No evidence of acute pulmonary embolism 2. Interval resolution of the previously identified mediastinal and hilar adenopathy 3. Interval resolution of the extensive bilateral pulmonary airspace opacities 4. Subtle nonspecific groundglass attenuation the lungs with a lower lung zone predominance 5. Scattered lung cysts and blebs Abd ultrasound: IMPRESSION: Negative study postcholecystectomy. CT abd/pelvis: IMPRESSION: 1. No acute intra-abdominal or intrapelvic abnormality identified. 2. No bowel obstruction or bowel wall thickening. Normal appendix. 3. Colonic diverticulosis without acute diverticulitis. 4. Mild intrahepatic and extrahepatic biliary ductal dilation with cholecystectomy. Findings are likely postsurgical. Correlate with laboratory analysis. 5. Mild wall thickening of the distal esophagus with small hiatal hernia. 6. 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 ECG Rhythm: normal sinus Supervising Physician Co-Signing Physician Notes I have seen and examined the patient and have discussed the case with the provider above. I agree with the assessment and plan as stated with the following exceptions. Patient is a 38-year-old prisoner who presents with chest pain. She has a history of cardiac disease status post stent over one year ago. She has been compliant with aspirin but noncompliant with Plavix for the last 3 weeks as she has been incarcerated. She has a history of smoking crack cocaine but denies any other illicit drug use. She is a smoker and was strongly advised to quit in the setting of coronary disease. Chest pain symptoms more present today is a new finding for her. Work-up at this time is unremarkable for active ischemia. However, she is high risk in the setting of known coronary disease and active smoking and should be here overnight for serial troponins and clini jose monitoring on telemetry. On physical exam she was hemodynamically stable and afebrile. She was denying any symptoms. She was tolerating p.o. Cardiac exam was unremarkable with S1-S2 heard without evidence of murmurs gallops or rubs. No peripheral edema was seen. There is no evidence of JVD. Lungs were clear to auscultation bilaterally. Abdomen was soft and nontender. She was in no acute distress or respiratory distress. Assessment: (1) chest pain, concerning for ACS in setting of known CAD, (2) Fever, (3) seizure disorder (4) hypertension (5) diabetes mellitus type 2 (6) GERD (7) depression (8) active smoking. Plan: Agree with plan to trend troponin overnight while monitoring on telemetry. Restart Plavix and continue aspirin, statin, nitroglycerin, metoprolol, and consult cardiology. Will monitor fever curve in the setting of recent gastroenteritis which has resolved. No antibiotics at this time. Continue Keppra for seizure disorder. DO Luis (1) Diabetes mellitus, type 2 Diabetes mellitus complication status: with unspecified complications Diabetes mellitus detention insulin use: without detention use Qualified Code(s): E11.8 - Type 2 diabetes mellitus with unspecified complications
[2018-12-19] MEDS ORDERED: ACETAMINOPHEN 325 MG TAB PO PRN (16:03)
--- NOTE | 2018-12-19 16:13 | Cardiology Consultation ---
Date of Consultation December 19, 2018 Assessment & Plan (1) Acute chest pain: EKG and troponin negative thus far. Given her history of known coronary heart disease, symptoms are certainly concerning. The patient was apparently incarcerated 3 weeks ago. She has had chest pain before she was incarcerated, and again today. She states that she is doing well with her medication prior to her incarceration with documented history of noncompliance per review of her chart. She is more than 1 year removed from her stents. Pt is to be on clopidogrel the time of discharge in May, at this time will be reinitiated. She is also to be on aspirin, metoprolol, and atorvastatin. Trend serial cardiac enzymes. No indication for emergent cardiac catheterization at present. Update echocardiogram. H/o mild noted as above. (2) Fever: check cultures, and start emperic antibiotics as per admitting team. History of Present Illness Attending Physician: Everardo Buchanan MD History of Present Illness Fritz Gonzalez is a 38 year old Female inmate seen in cardiology consultation per the request of Caroline Perez PA-C and Dr. Smith of the [facility] service for the evaluation of chest pain. She presented to the emergency department with chest pain onset this morning which was partially palliated with the administration of nitroglycerin by EMS. She states onset of chest pain was approximately 9 AM this morning. Currently during my interview with the patient in room 211 she continues to have chest discomfort. She is in no acute distress. She has an objective fever with most recent temperature of 37.9. She denies any pleuritic component of her chest pain, denies cough, denies dysuria. She has a history of type 2 diabetes mellitus, hypertension, dyslipidemia, hepatitis C and coronary heart disease with prior circumflex coronary stent and ramus intermediate stent placed in 2016. Her most recent cardiac catheterization took place by Dr. Gonzales of our practice on 06/03/2018 when she presented with chest discomfort. She was found to have a patent stent in the ramus intermedius, and a patent circumflex coronary stent, without significant obstruction. An 80% stenosis was noted in the right posterior descending artery branch of the distal right coronary artery which was 80% however it was a trivial sized vessel and ongoing medication management was recommended. At that time her discharge medications were to include aspirin 81 mg daily, clopidogrel 75 mg daily, metoprolol 50 mg twice daily, and atorvastatin 80 mg daily. She apparently has not been receiving clopidogrel at the [facility], but has been receiving aspirin 81 mg daily and atorvastatin 40 mg daily. In addition to her history of coronary heart disease, she had been ill with fungal septicemia in Aug, 2017. She was noted to have a cardiac murmur, and she underwent a transesophageal echocardiogram that revealed abnormal aortic valve morphology with thickened aortic valve and partial fusion of the left coronary cusp and noncoronary cusp. No stigmata of endocarditis was noted at the time of the transesophageal echocardiogram. This time for repeat transthoracic study in May,, mild aortic stenosis is felt to be present as well as mild aortic valve regurgitation. Allergies Allergy/AdvReac Type Severity Reaction Status Date / Time lidocaine Allergy Intermediate HIVES Verified 12/19/18 12:47 procaine Allergy Intermediate HIVES Verified 12/19/18 12:47 Penicillins Allergy Mild HAD NO Verified 12/19/18 12:47 PROBLEM WITH ZOSYN strawberry Allergy Mild HIVES Verified 12/19/18 12:47 cephalexin AdvReac Intermediate YEAST Verified 12/19/18 12:47 INFECTIONS egg AdvReac Intermediate GI UPSET Verified 12/19/18 12:47 mivacurium AdvReac Mild STOMACH Verified 12/19/18 12:47 PAINS tramadol AdvReac Unknown SEIZURES Verified 12/19/18 12:47 azithromycin AdvReac Unknown Verified 12/19/18 12:47 Home Medications Home Medications Medication Instructions Recorded Confirmed Type escitalopram oxalate [Lexapro] 20 mg PO DAILY 05/30/18 12/19/18 History ibuprofen 400 mg PO BID PRN 05/30/18 12/19/18 History levetiracetam [Keppra] 500 mg PO BID 05/30/18 12/19/18 History trazodone 250 mg PO HS 05/30/18 12/19/18 History aspirin 81 mg PO DAILY 09/08/18 12/19/18 History glipizide 10 mg PO DAILY 09/08/18 12/19/18 History lisinopril 5 mg PO DAILY 09/08/18 12/19/18 History buspirone 30 mg PO BID 12/19/18 12/19/18 History gabapentin 600 mg PO TID 12/19/18 12/19/18 History liraglutide [Victoza 3-Zac] 0.6 mg SUBCUT DAILY 12/19/18 12/19/18 History metformin 1,000 mg PO BID 12/19/18 12/19/18 History metoprolol tartrate 25 mg PO BID 12/19/18 12/19/18 History omeprazole 20 mg PO DAILY 12/19/18 12/19/18 History simvastatin 40 mg PO DAILY 12/19/18 12/19/18 History Patient History Medical History History of drug abuse (Chronic) Depression (Chronic) GERD (gastroesophageal reflux disease) (Chronic) Seizure disorder (Chronic) Coronary artery disease (Chronic) Diabetes mellitus, type 2 (Chronic) Hypertension (Chronic) Hepatitis C (Chronic) "Antibiotic screen positive, quantitative RNA positive 08/30/17" Dyslipidemia (Chronic) History of renal calculi (Chronic) Asthma (Chronic) History of DVT (deep vein thrombosis) (Chronic) Hepatosplenomegaly (Chronic) Acute hypoxemic respiratory failure (Resolved) Fungemia (Resolved) Soft tissue abscess of suprapubic region (Resolved) Pneumonitis (Resolved) Sepsis (Resolved) CAD (coronary artery disease) DVT (deep venous thrombosis) Diabetes Surgical History History of lumbar spinal fusion (Resolved) Hx of tonsillectomy (Resolved) History of carpal tunnel surgery (Resolved) History of cardiac cath (Resolved) 2017- 1 ROJAS to ramus, 2 ROJAS to L circumflex. 40-50% plaque to LAD Status post cholecystectomy (Chronic) Family History Other Diabetes Heart disease Hypertension Kidney stones Seizures Social History Preferred Language: Montserratian Communication Ability: Effective Visual Impairment: No Limitations Hearing Ability: Normal Telemetry Technician Required: No Beliefs That Will Affect Care: None Current Living Situation: Other Current Living Situation Comment: [facility] Feels Safe at Home: Yes Smoking Status: Current every day smoker Tobacco Type: cigarettes ; Hx Alcohol Use: No Hx Substance Use: No Physical Exam Physical Exam: Temp Pulse Resp BP Pulse Ox 37.9 C H 77 24 113/78 97 12/19/18 11:45 12/19/18 15:30 12/19/18 13:30 12/19/18 15:30 12/19/18 15:30 Constitutional: WD/WN, vitals as above Respiratory: normal respiratory effort, lungs clear to auscultation Cardiovascular: Rate/Rhythm: regular rhythm Heart Sounds: normal S1 and + murmur (1/6 systolic murmur) Vessels: no JVD Extremities: no edema Gastrointestinal (Abdomen): normal bowel sounds, soft, nontender, no hepatosplenomegaly Neurologic: PERRL, EOMI, accommodation nl, no face palsy, no dysarthria Results & Data Vital Signs (Past 12 Hours) Vital Signs Temp Pulse Resp BP Pulse Ox 12/19/18 15:30 77 113/78 97 12/19/18 15:15 75 99 12/19/18 15:00 76 98 12/19/18 14:51 88 98 12/19/18 13:30 77 24 134/89 97 12/19/18 13:15 78 17 98 12/19/18 13:00 97 H 107/77 12/19/18 12:45 76 25 H 97 12/19/18 12:30 87 34 H 109/72 99 12/19/18 12:15 70 23 97 12/19/18 12:00 75 15 111/82 98 12/19/18 11:52 79 16 132/76 98 12/19/18 11:45 37.9 C H 87 20 111/82 98 Laboratory Results Cardiac Enzymes 12/19/18 Range/Units 11:27 AST 68 H (15-37) U/L CK-MB (CK-2) 6.1 H (0.5-3.6) ng/ml Troponin I < 0.015 (0-0.045) ng/ml CBC 12/19/18 Range/Units 11:27 WBC 11.52 H (4.8-10.8) K/uL RBC 4.49 (4.2-5.4) M/uL Hgb 12.8 (12.0-16.0) g/dL Hct 38.7 (37-47) % Plt Count 273 (130-400) K/uL Neut # (Auto) 7.25 H (1.4-6.5) K/uL Lymph # (Auto) 3.27 (1.2-3.4) K/uL Sequoyah # (Auto) 0.63 H (0.11-0.59) K/uL Eos # (Auto) 0.29 (0-0.5) K/uL Baso # (Auto) 0.05 (0-0.2) K/uL Comprehensive Metabolic Panel 12/19/18 Range/Units 11:27 Sodium 138 (136-145) mmol/L Potassium 4.1 (3.5-5.1) mmol/L Chloride 109 H (98-107) mmol/L Carbon Dioxide 21 (21-32) mmol/L BUN 12 (7-18) mg/dl Creatinine 0.88 (0.6-1.2) mg/dl Glucose 284 H (70-99) mg/dl Calcium 8.8 (8.5-10.1) mg/dl AST 68 H (15-37) U/L ALT 252 H (12-78) U/L Alkaline Phosphatase 95 (45-117) U/L Total Protein 6.8 (6.4-8.2) gm/dl Albumin 3.4 (3.4-5.0) gm/dl Intake and Output 12/19/18 12/19/18 12/19/18 06:59 14:59 22:59 Other: Weight 89.1 kg Patient Weight 12/20/18 06:59 Weight 89.1 kg Diagnostic Findings EKG performed 12/19/2018 at 1155 and reviewed independently revealed sinus rhythm at 81 bpm, normal ST segments, unchanged compared to 06/02/2018.
[2018-12-19] MEDS ORDERED: GLUCOSE 10 TABS/TUBE PO PRN (16:20)
[2018-12-19] MEDS ORDERED: GLUCOSE 40% GEL 15 GM TUBE PO PRN (16:20)
[2018-12-19] MEDS ORDERED: DEXTROSE 50% 50 ML SYRINGE IV PRN (16:20)
[2018-12-19] MEDS ORDERED: CARBOHYDRATES FOR HYPOGLYCEMIA PO PRN (16:20)
[2018-12-19] MEDS ORDERED: GLUCAGON FOR INJ 1 MG VIAL SQ PRN (16:20)
[2018-12-19] MEDS ORDERED: INSULIN GLARGINE SOLOSTAR 100 UNITS/ML 3 ML PEN SC SCH (17:00)
[2018-12-19] MEDS: INSULIN ASPART 100 UNITS/ML 3 ML PEN SC SCH ×2 (18:27→20:57)
[2018-12-19] MEDS: GABAPENTIN 600 MG TAB PO SCH (19:47)
[2018-12-19] MEDS: BusPIRone 15 MG TAB PO SCH (19:48)
[2018-12-19] MEDS: TRAZODONE HCL 100 MG TAB PO SCH (19:49)
[2018-12-19] MEDS: levETIRAcetam 500 MG TAB PO SCH (19:49)
[2018-12-19 20:19] LABS: Hematocrit (blood only) 38.9 % (37-47); Hemoglobin 12.6 g/dL (12.0-16.0); Mean Corpuscular Hemoglobin 28.1 pg (25-34); Mean Corpuscular Hgb Conc 32.4 g/dL (32-36); Mean Corpuscular Volume 86.6 fL (80-100); Mean Platelet Volume 11.5 fL (7.4-10.4); Platelet Count 282 K/uL (130-400); RDW Coefficient of Variation 16.5 % (11.5-14.5); RDW Standard Deviation 52.1 fL (36.4-46.3); Red Blood Count 4.49 M/uL (4.2-5.4); White Blood Count 14.62 K/uL (4.8-10.8)
[2018-12-19 20:30] LABS: INR 1.1 (0.9-1.1); Partial Thromboplastin Ratio 0.9; Partial Thromboplastin Time 25.4 Seconds (21.0-31.0); Prothrombin Time 11.4 Seconds (9.0-12.0)
[2018-12-19] MEDS: METOPROLOL TARTRATE 50 MG TAB PO SCH (20:59)
[2018-12-19] MEDS: HEPARIN SOD 5,000 UNIT/0.5 ML VIAL SQ SCH (21:51)
[2018-12-20 00:36] LABS: Amphetamines+Metham, Urine Neg (Neg); Barbiturates, Urine Neg (Neg); Benzodiazepine, Urine Neg (Neg); Cocaine, Urine Neg (Neg); MDMA (Ecstacy), Urine Neg (Neg); Methadone, Urine Neg (Neg); Opiate, Urine Pos (Neg); Phencyclidine, Urine Neg (Neg)
[2018-12-20] MEDS: HEPARIN SOD 5,000 UNIT/0.5 ML VIAL SQ SCH ×3 (06:13→21:02)
[2018-12-20] MEDS ORDERED: NITROGLYCERIN SL 0.4 MG/TAB TAB ONE (06:32)
[2018-12-20 06:41] LABS: Hemoglobin 13.1 g/dL (12.0-16.0); Mean Corpuscular Hemoglobin 28.9 pg (25-34); Mean Corpuscular Hgb Conc 33.6 g/dL (32-36); Mean Corpuscular Volume 86.1 fL (80-100); Mean Platelet Volume 11.1 fL (7.4-10.4); Platelet Count 288 K/uL (130-400); RDW Coefficient of Variation 16.5 % (11.5-14.5); RDW Standard Deviation 52.3 fL (36.4-46.3); Red Blood Count 4.53 M/uL (4.2-5.4); White Blood Count 11.26 K/uL (4.8-10.8)
[2018-12-20 07:04] LABS: Estimated Average Glucose 148 mg/dl; Hemoglobin A1C 6.8 % (4.5-5.6)
[2018-12-20 07:15] LABS: BUN Creatinine Ratio 12.4 (10-20); Calcium 8.9 mg/dl (8.5-10.1); Creatinine Clr Calc Pharmacy 92.4 ml/min; Est GFR (African American) 96.6; Est GFR (Non-African American) 83.3; Potassium 4.3 mmol/L (3.5-5.1)
[2018-12-20] MEDS: NITROGLYCERIN SL 0.4 MG/TAB TAB SL PRN ×2 (08:23→08:36)
[2018-12-20] MEDS: METOPROLOL TARTRATE 50 MG TAB PO SCH ×2 (08:23→21:02)
[2018-12-20] MEDS: BusPIRone 15 MG TAB PO SCH ×2 (08:24→21:01)
[2018-12-20] MEDS: GABAPENTIN 600 MG TAB PO SCH ×3 (08:24→21:02)
[2018-12-20] MEDS: levETIRAcetam 500 MG TAB PO SCH ×2 (08:25→21:01)
[2018-12-20] MEDS: ATORVASTATIN 40 MG TAB PO SCH (08:26)
[2018-12-20] MEDS: ESCITALOPRAM OXALATE 20 MG TAB PO SCH (08:26)
[2018-12-20] MEDS: PANTOprazole 40 MG TAB PO SCH (08:26)
[2018-12-20] MEDS: ASPIRIN 81 MG ECTAB PO SCH (08:26)
[2018-12-20] MEDS: LISINOPRIL 5 MG TAB PO SCH (08:26)
[2018-12-20] MEDS: INSULIN GLARGINE SOLOSTAR 100 UNITS/ML 3 ML PEN SC SCH ×2 (08:29→21:00)
[2018-12-20] MEDS: INSULIN ASPART 100 UNITS/ML 3 ML PEN SC SCH ×4 (08:29→20:59)
[2018-12-20] MEDS ORDERED: CLOPIDOGREL BISULFATE 75 MG TAB PO SCH (09:00)
[2018-12-20] MEDS ORDERED: DOBUTamine HCL 12.5 MG/ML 20 ML VIAL IV ONE ×2 (10:42→10:48)
[2018-12-20] MEDS ORDERED: METOPROLOL TARTRATE 1 MG/ML VIAL IV ONE ×2 (10:42→11:46)
[2018-12-20] MEDS ORDERED: ATROPINE SULFATE 0.1 MG/ML 10ML SYR IV ONE ×2 (10:43→11:15)
[2018-12-20] MEDS ORDERED: DOBUTamine 500MG / 250ML D5W (CATH LAB USE ONLY) ONE (10:50)
--- NOTE | 2018-12-20 11:32 | Cardiology Progress Note ---
Date of Service December 20, 2018 Assessment & Plan (1) Chest pain: nonischemic dobutamine stress echocardiogram CE negative x 3 EKG without significant ischemic changes believe discomfort is due to branch vessel disease that has been documented as not suitable for intervention will titrate antianginal meds up cont metoprolol will start imdur 30mg po daily would monitor overight on monitor can give additional imdur later today if chest pain persists (2) Coronary artery disease: nonischemic dobutamine stress echo cardiac cath 06/17 with patent stents and branch vessel disease. cont aspirin stents over a year old, no need for plavix Subjective Pt seen and examined, continued chest discomfort overnight, approx 2/10, constant. Denies sob, palpitations, lightheadedness or dizziness. tele reviewed: sinus rhythm without arrhythmia or significant ectopy. Review of Systems Review of Systems: All systems reviewed & are unremarkable except as noted in HPI & below Physical Exam Physical Exam: General: Awake, alert and oriented x 3. No acute distress. HEENT: Normocephalic, atraumatic. Pupils equal, round and reactive to light and accommodation. Extraocular muscles are intact. Anicteric sclera. Moist mucous membranes. Neck: No JVD. No bruit. Cardiovascular: Regular. Positive S-4. Normal S-1 and S-2. No S-3. No murmurs or rubs. Pulmonary: Clear to auscultation B/L. No rales, rhonchi or wheezing Abdomen: Bowel sounds x 4, soft. No rebound, guarding or tenderness. No organomegaly. Extremities: No clubbing, cyanosis or edema. +2 pedal pulses bilaterally. Skin: Warm and dry. Results & Data Vital Signs (Past 12 Hours) Vital Signs Temp Pulse Resp BP Pulse Ox 12/20/18 07:41 37.6 C H 90 20 106/82 98 12/20/18 03:45 37.3 C 71 18 118/83 97 12/19/18 23:38 37.4 C 74 24 107/61 96
--- NOTE | 2018-12-20 12:29 | Hospitalist Progress Note ---
Date of Service December 20, 2018 Assessment & Plan (1) Chest pain: This is a 38-year-old female [facility] with a PMH of CAD (s/p ROJAS x 3 in 2017), DM II, hepatitis C, asthma, seizure disorder, depression, history of drug abuse and other medical problems listed below who pr esents with chest pain starting this morning. 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 -Tylenol PRN (3) Seizure disorder: No recent seizures. Continue Keppra No more seizures (4) Hypertension: Normotensive -Resumed on previous Lopressor 50 mg twice daily dose, per Dr. Rutherford -Continue lisinopril -Blood pressure is controlled (5) Diabetes mellitus, type 2: Most recent A1c 7.5 in May 2018 -Repeat a1c -improves at 6.8 -Hold home agents -SSI while in-patient -BSG AC HS (6) GERD (gastroesophageal reflux disease): Continue PPI (7) Depression: Continue SSRI DVT Ppx: SQ heparin Code status: FULL PCP: Lukasz Dispo: Observation telemetry. Plan to return home once medically stable. Will observe in telemetry Subjective 12/20 The patient was seen and examined in the telemetry unit This is a 38-year-old female from [facility] with a PMH of CAD (s/p ROJAS x 3 in 2017), DM II, hepatitis C, asthma, seizure disorder, depression, history of drug abuse and other medical problems listed below who presents with chest pain starting in the morning of admission Complaints to have ongoing precordial pain with radiation to left upper extremity without any other associated symptoms Denies any shortness of breath, palpitation, nausea and vomiting Review of Systems Review of Systems: All systems reviewed and are unremarkable except as noted below Cardiovascular: + chest pain (At rest, precordial with radiation to left upper extremity without any associated symptoms) and + radiating jaw, neck or arm pain; no dyspnea and no palpitations Physical Exam Physical Exam: Lying in bed with minimal discomfort due to precordial pain Constitutional: + acute distress (Minimal pain as above); not ill appearing Eyes: PERRL, conjunctivae normal, anicteric sclerae ENMT: external ear and nose normal, oropharynx normal Neck: trachea midline, no thyromegaly Respiratory: normal respiratory effort Auscultation: lungs clear to auscultation bilaterally Cardiovascular: Rate/Rhythm: regular rhythm Heart Sounds: normal S1 and + murmur (1/6 systolic murmur) Vessels: no JVD Extremities: no edema Gastrointestinal (Abdomen): Inspection/Auscultation: abdomen normal to inspection and normal bowel sounds Percussion/Palpation: abdomen soft Musculoskeletal: No precordial tenderness Neurologic: PERRL, EOMI, accommodation nl, no face palsy, no dysarthria Lymphatic: no cervical or axillary lymphadenopathy Results & Data Vital Signs (Past 12 Hours) Vital Signs Temp Pulse Resp BP Pulse Ox 12/20/18 12:04 37.2 C 106 H 25 H 100/78 97 12/20/18 07:41 37.6 C H 90 20 106/82 98 12/20/18 03:45 37.3 C 71 18 118/83 97 Laboratory Results Short CBC 12/19/18 12/20/18 Range/Units 19:56 06:09 WBC 14.62 H 11.26 H (4.8-10.8) K/uL Hgb 12.6 13.1 (12.0-16.0) g/dL Hct 38.9 39.0 (37-47) % Plt Count 282 288 (130-400) K/uL BMP 12/19/18 12/20/18 11:27 06:09 Sodium 138 140 Potassium 4.1 4.3 Chloride 109 H 110 H Carbon Dioxide 21 23 BUN 12 11 Creatinine 0.88 0.87 Glucose 284 H 162 H Calcium 8.8 8.9 Cardiac Enzymes 12/19/18 12/19/18 12/19/18 Range/Units 11:27 17:52 22:52 Total Creatine Kinase 130 (26-192) U/L CK-MB (CK-2) 6.1 H (0.5-3.6) ng/ml Troponin I < 0.015 < 0.015 < 0.015 (0-0.045) ng/ml Liver Function 12/19/18 Range/Units 11:27 Total Bilirubin 0.4 (0.2-1) mg/dl AST 68 H (15-37) U/L ALT 252 H (12-78) U/L Alkaline Phosphatase 95 (45-117) U/L Albumin 3.4 (3.4-5.0) gm/dl Urine 12/19/18 Range/Units 13:25 Urine Color Yellow Urine Appearance Clear (Clear) Urine pH 6.5 (4.5-7.5) Ur Specific [place] 1.015 (1.000-1.030) Urine Protein Negative (Negative) Urine Glucose (UA) 2+ H (Negative) Medications Administered Current Inpatient Medications Acetaminophen (Tylenol) 650 mg PO Q4H PRN PRN Reason: Pain or Fever Stop: 01/18/19 16:02 Aspirin (Ecotrin Ectab) 81 mg PO DAILY [facility] Stop: 01/19/19 08:59 Last Admin: 12/20/18 08:26 Dose: 81 mg Documented by: Atorvastatin Calcium (Lipitor) 80 mg PO QAM [facility] Stop: 01/19/19 08:59 Last Admin: 12/20/18 08:26 Dose: 80 mg Documented by: Buspirone HCl (Buspar) 30 mg PO BID [facility] Stop: 01/18/19 20:59 Last Admin: 12/20/18 08:24 Dose: 30 mg Documented by: Dextrose (Dextrose 50%) 25 - 50 ml IV UD PRN; Protocol PRN Reason: Hypoglycemia Protocol Stop: 01/18/19 16:19 Escitalopram Oxalate (Lexapro Tab) 20 mg PO DAILY [facility] Stop: 01/19/19 08:59 Last Admin: 12/20/18 08:26 Dose: 20 mg Documented by: Gabapentin (Neurontin) 600 mg PO TID [facility] Stop: 01/18/19 20:59 Last Admin: 12/20/18 08:24 Dose: 600 mg Documented by: Glucagon (Glucagen) 1 mg SQ UD PRN; Protocol PRN Reason: Hypoglycemia Protocol Stop: 01/18/19 16:19 Glucose (Glucose 40%) 15 - 30 gm PO UD PRN; Protocol PRN Reason: Hypoglycemia Protocol Stop: 01/18/19 16:19 Glucose (Dex4 Glucose) 4 - 8 tabs PO UD PRN; Protocol PRN Reason: Hypoglycemia Protocol Stop: 01/18/19 16:19 Heparin Sodium (Porcine) (Heparin Sodium (Porcine)) 5,000 units SQ Q8 [facility] Stop: 01/18/19 21:59 Last Admin: 12/20/18 06:13 Dose: 5,000 units Documented by: Insulin Aspart (Novolog Flexpen) 0 units SC ACHS [facility] Stop: 01/18/19 16:29 Last Admin: 12/20/18 08:29 Dose: 7 units Documented by: Insulin Glargine (Lantus Solostar Pen) 0 units SC BID [facility]; Protocol Stop: 01/19/19 08:59 Last Admin: 12/20/18 08:29 Dose: 10 units Documented by: Isosorbide Mononitrate (Imdur Extended Rel) 30 mg PO QAM [facility] Stop: 01/20/19 08:59 Isosorbide Mononitrate (Imdur Extended Rel) 30 mg PO 1230 ONE Stop: 12/20/18 12:31 Levetiracetam (Keppra) 500 mg PO BID [facility] Stop: 01/18/19 20:59 Last Admin: 12/20/18 08:25 Dose: 500 mg Documented by: Lisinopril (Zestril) 5 mg PO DAILY [facility] Stop: 01/19/19 08:59 Last Admin: 12/20/18 08:26 Dose: 5 mg Documented by: Metoprolol Tartrate (Lopressor) 50 mg PO BID [facility] Stop: 01/18/19 20:59 Last Admin: 12/20/18 08:23 Dose: 50 mg Documented by: Miscellaneous (Carbohydrates For Hypoglycemia) 15 - 30 gm PO UD PRN PRN Reason: Hypoglycemia Treatment Stop: 01/18/19 16:19 Nitroglycerin (Nitrostat) 0.4 mg SL PRN PRN PRN Reason: Chest Pain Stop: 01/19/19 06:26 Last Admin: 12/20/18 08:36 Dose: 0.4 mg Documented by: Ondansetron HCl (Zofran) 4 mg IV Q6H PRN PRN Reason: Nausea Stop: 01/18/19 16:02 Pantoprazole Sodium (Protonix) 40 mg PO DAILY [facility] Stop: 01/19/19 08:59 Last Admin: 12/20/18 08:26 Dose: 40 mg Documented by: Trazodone HCl (Desyrel) 250 mg PO HS [facility] Stop: 01/18/19 20:59 Last Admin: 12/19/18 19:49 Dose: 250 mg Documented by: (1) Diabetes mellitus, type 2 Diabetes mellitus complication status: with unspecified complications Diabetes mellitus long-term insulin use: without long term care social worker use Qualified Code(s): E11.8 - Type 2 diabetes mellitus with unspecified complications
[2018-12-20] MEDS ORDERED: ISOSORBIDE MONO EXTENDED REL 30 MG TABCR PO ONE (12:30)
[2018-12-20] MEDS: ONDANSETRON INJ 2 MG/ML 2 ML VIAL IV PRN (19:52)
[2018-12-20] MEDS: TRAZODONE HCL 100 MG TAB PO SCH (21:06)
[2018-12-21] MEDS: HEPARIN SOD 5,000 UNIT/0.5 ML VIAL SQ SCH ×2 (04:59→13:38)
[2018-12-21 06:36] LABS: Hematocrit (blood only) 40.3 % (37-47); Hemoglobin 13.1 g/dL (12.0-16.0); Mean Corpuscular Hemoglobin 28.2 pg (25-34); Mean Corpuscular Hgb Conc 32.5 g/dL (32-36); Mean Corpuscular Volume 86.7 fL (80-100); Mean Platelet Volume 11.1 fL (7.4-10.4); Platelet Count 270 K/uL (130-400); RDW Coefficient of Variation 16.5 % (11.5-14.5); RDW Standard Deviation 52.3 fL (36.4-46.3); Red Blood Count 4.65 M/uL (4.2-5.4); White Blood Count 10.56 K/uL (4.8-10.8)
[2018-12-21 07:13] LABS: BUN Creatinine Ratio 15.7 (10-20); Calcium 8.8 mg/dl (8.5-10.1); Creatinine Clr Calc Pharmacy 85.4 ml/min; Est GFR (Non-African American) 75.9; Potassium 4.1 mmol/L (3.5-5.1)
[2018-12-21] MEDS: ONDANSETRON INJ 2 MG/ML 2 ML VIAL IV PRN (08:52)
[2018-12-21] MEDS: LISINOPRIL 5 MG TAB PO SCH (08:54)
[2018-12-21] MEDS: ASPIRIN 81 MG ECTAB PO SCH (08:54)
[2018-12-21] MEDS: levETIRAcetam 500 MG TAB PO SCH (08:55)
[2018-12-21] MEDS: BusPIRone 15 MG TAB PO SCH (08:55)
[2018-12-21] MEDS: METOPROLOL TARTRATE 50 MG TAB PO SCH (08:55)
[2018-12-21] MEDS: GABAPENTIN 600 MG TAB PO SCH ×2 (08:56→14:01)
[2018-12-21] MEDS: ESCITALOPRAM OXALATE 20 MG TAB PO SCH (08:56)
[2018-12-21] MEDS: PANTOprazole 40 MG TAB PO SCH (08:56)
[2018-12-21] MEDS: ATORVASTATIN 40 MG TAB PO SCH (08:56)
[2018-12-21] MEDS: INSULIN GLARGINE SOLOSTAR 100 UNITS/ML 3 ML PEN SC SCH (08:57)
[2018-12-21] MEDS ORDERED: ISOSORBIDE MONO EXTENDED REL 30 MG TABCR PO SCH (09:00)
[2018-12-21] MEDS: INSULIN ASPART 100 UNITS/ML 3 ML PEN SC SCH ×2 (09:00→11:53)
--- NOTE | 2018-12-21 10:47 | Cardiology Progress Note ---
Date of Service December 21, 2018 Assessment & Plan (1) Chest pain: nonischemic dobutamine stress echocardiogram CE negative x 3 EKG without significant ischemic changes believe discomfort is due to branch vessel disease that has been documented as not suitable for intervention pain now resolved ok to discharge from cardiac standpoint on aspirin 81mg daily imdur 30mg daily metoprolol tartrate 50mg bid lisinopril 5mg daily atorvastatin 80mg daily (2) Coronary artery disease: nonischemic dobutamine stress echo cardiac cath 06/17 with patent stents and branch vessel disease. cont aspirin stents over a year old, no need for plavix ideally, would like to perform genetic testing for familial hyperlipidemia as an outpatient that may tailor medical therapy f/u when able to (currently incarcerated) Subjective Pt seen and examined, states that chest discomfort has all but resolved. Significantly improved after receiving imdur yesterday. Denies sob, palpitations, lightheadedness or dizzziness. tele reviewed: sinus rhythm without arrhythmia or significant ectopy Review of Systems Review of Systems: All systems reviewed & are unremarkable except as noted in HPI & below Physical Exam Physical Exam: General: Awake, alert and oriented x 3. No acute distress. HEENT: Normocephalic, atraumatic. Pupils equal, round and reactive to light and accommodation. Extraocular muscles are intact. Anicteric sclera. Moist mucous membranes. Neck: No JVD. No bruit. Cardiovascular: Regular. Positive S-4. Normal S-1 and S-2. No S-3. No murmurs or rubs. Pulmonary: Clear to auscultation B/L. No rales, rhonchi or wheezing Abdomen: Bowel sounds x 4, soft. No rebound, guarding or tenderness. No organomegaly. Extremities: No clubbing, cyanosis or edema. +2 pedal pulses bilaterally. Skin: Warm and dry. Results & Data Vital Signs (Past 12 Hours) Vital Signs Temp Pulse Pulse Resp BP Pulse Ox 12/21/18 10:14 80 12/21/18 07:50 37.5 C 91 H 20 128/66 96 12/21/18 04:56 116/64 12/21/18 04:09 36.9 C 69 17 89/52 L 97 12/21/18 00:08 37 C 71 16 113/70 95 12/21/18 00:00 80
--- NOTE | 2018-12-21 11:00 | Hospitalist Progress Note ---
Date of Service December 21, 2018 Assessment & Plan (1) Chest pain: This is a 38-year-old female from [facility] with a PMH of CAD (s/p ROJAS x 3 in 2017), DM II, hepatitis C, asthma, seizure disorder, depression, history of drug abuse and other medical problems listed below who pr esents with chest pain starting this morning. 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 mild valvular aortic stenosis with mild aortic regurgitation Nonischemic cath dobutamine stress echo Appreciate cardiology input and recommendation Continue aspirin 81mg daily, clopidogrel 75 mg daily( discontinued), metoprolol 50 mg twice daily, and atorvastatin 80 mg daily Suspected branch vessel disease as per cardiology not amenable to intervention ImDur 30 mg once daily added for pain control Remains stable and denies any more chest pain or cardiac symptoms Will discharge home today (2) Fever: Initial temperature of 37.9 -CXR, CT abd/pelvis without evidence of infection -Gastroenteritis present in custodial, patient had diarrhea 3 days ago that is since resolved -Blood culture -Negative -Tylenol PRN (3) Seizure disorder: No recent seizures. Continue Keppra No more seizures (4) Hypertension: Normotensive -Resumed on previous Lopressor 50 mg twice daily dose, per Dr. Rutherford -Continue lisinopril -Blood pressure is controlled (5) Diabetes mellitus, type 2: Most recent A1c 7.5 in May 2018 -Repeat a1c -improves at 6.8 -Hold home agents -SSI while in-patient -BSG AC HS (6) GERD (gastroesophageal reflux disease): Continue PPI (7) Depression: Continue SSRI DVT Ppx: SQ heparin Code status: FULL PCP: Lukasz Dispo: Observation telemetry. Plan to return home once medically stable. Discharge this afternoon 12/20 The patient was seen and examined in the telemetry unit This is a 38-year-old female from [facility] with a PMH of CAD (s/p ROJAS x 3 in 2017), DM II, hepatitis C, asthma, seizure disorder, depression, history of drug abuse and other medical problems listed below who presents with chest pain starting in the morning of admission Complaints to have ongoing precordial pain with radiation to left upper extremity without any other associated symptoms Denies any shortness of breath, palpitation, nausea and vomiting 12/21 Patient was seen and examined in telemetry unit She has a few nonspecific symptoms but denies to have any chest pain no shortness of breath She has been hemodynamically stable and without any significant blood test abnormalities Will be discharged this afternoon Review of Systems Review of Systems: All systems reviewed and are unremarkable except as noted below Cardiovascular: no chest pain, no dyspnea and no palpitations Physical Exam Physical Exam: No apparent distress at rest Constitutional: no acute distress Eyes: PERRL, conjunctivae normal, anicteric sclerae ENMT: external ear and nose normal, oropharynx normal Neck: trachea midline, no thyromegaly Respiratory: normal respiratory effort Auscultation: lungs clear to auscultation bilaterally Cardiovascular: Rate/Rhythm: regular rhythm Heart Sounds: normal S1 and + murmur (1/6 systolic murmur) Vessels: no JVD Extremities: no edema Gastrointestinal (Abdomen): Inspection/Auscultation: abdomen normal to inspection and normal bowel sounds Percussion/Palpation: abdomen soft Musculoskeletal: Does not have any acute arthritis in any joints Neurologic: PERRL, EOMI, accommodation nl, no face palsy, no dysarthria Lymphatic: no cervical or axillary lymphadenopathy Results & Data Vital Signs (Past 12 Hours) Vital Signs Temp Pulse Pulse Resp BP Pulse Ox 12/21/18 10:14 80 12/21/18 07:50 37.5 C 91 H 20 128/66 96 12/21/18 04:56 116/64 12/21/18 04:09 36.9 C 69 17 89/52 L 97 12/21/18 00:08 37 C 71 16 113/70 95 12/21/18 00:00 80 Laboratory Results Short CBC 12/21/18 Range/Units 06:12 WBC 10.56 (4.8-10.8) K/uL Hgb 13.1 (12.0-16.0) g/dL Hct 40.3 (37-47) % Plt Count 270 (130-400) K/uL BMP 12/21/18 06:12 Sodium 139 Potassium 4.1 Chloride 109 H Carbon Dioxide 23 BUN 15 Creatinine 0.94 Glucose 173 H Calcium 8.8 Diagnostic Findings Nonischemic dobutamine stress echocardiogram Medications Administered Current Inpatient Medications Acetaminophen (Tylenol) 650 mg PO Q4H PRN PRN Reason: Pain or Fever Stop: 01/18/19 16:02 Last Admin: 12/20/18 15:52 Dose: 650 mg Documented by: Aspirin (Ecotrin Ectab) 81 mg PO DAILY [facility] Stop: 01/19/19 08:59 Last Admin: 12/21/18 08:54 Dose: 81 mg Documented by: Atorvastatin Calcium (Lipitor) 80 mg PO QAM [facility] Stop: 01/19/19 08:59 Last Admin: 12/21/18 08:56 Dose: 80 mg Documented by: Buspirone HCl (Buspar) 30 mg PO BID [facility] Stop: 01/18/19 20:59 Last Admin: 12/21/18 08:55 Dose: 30 mg Documented by: Dextrose (Dextrose 50%) 25 - 50 ml IV UD PRN; Protocol PRN Reason: Hypoglycemia Protocol Stop: 01/18/19 16:19 Escitalopram Oxalate (Lexapro Tab) 20 mg PO DAILY [facility] Stop: 01/19/19 08:59 Last Admin: 12/21/18 08:56 Dose: 20 mg Documented by: Gabapentin (Neurontin) 600 mg PO TID [facility] Stop: 01/18/19 20:59 Last Admin: 12/21/18 08:56 Dose: 600 mg Documented by: Glucagon (Glucagen) 1 mg SQ UD PRN; Protocol PRN Reason: Hypoglycemia Protocol Stop: 01/18/19 16:19 Glucose (Glucose 40%) 15 - 30 gm PO UD PRN; Protocol PRN Reason: Hypoglycemia Protocol Stop: 01/18/19 16:19 Glucose (Dex4 Glucose) 4 - 8 tabs PO UD PRN; Protocol PRN Reason: Hypoglycemia Protocol Stop: 01/18/19 16:19 Heparin Sodium (Porcine) (Heparin Sodium (Porcine)) 5,000 units SQ Q8 [facility] Stop: 01/18/19 21:59 Last Admin: 12/21/18 04:59 Dose: 5,000 units Documented by: Insulin Aspart (Novolog Flexpen) 0 units SC ACHS [facility] Stop: 01/18/19 16:29 Last Admin: 12/21/18 09:00 Dose: 9 units Documented by: Insulin Glargine (Lantus Solostar Pen) 0 units SC BID [facility]; Protocol Stop: 01/19/19 08:59 Last Admin: 12/21/18 08:57 Dose: 10 units Documented by: Isosorbide Mononitrate (Imdur Extended Rel) 30 mg PO QAM [facility] Stop: 01/20/19 08:59 Last Admin: 12/21/18 08:57 Dose: 30 mg Documented by: Levetiracetam (Keppra) 500 mg PO BID [facility] Stop: 01/18/19 20:59 Last Admin: 12/21/18 08:55 Dose: 500 mg Documented by: Lisinopril (Zestril) 5 mg PO DAILY [facility] Stop: 01/19/19 08:59 Last Admin: 12/21/18 08:54 Dose: 5 mg Documented by: Metoprolol Tartrate (Lopressor) 50 mg PO BID [facility] Stop: 01/18/19 20:59 Last Admin: 12/21/18 08:55 Dose: 50 mg Documented by: Miscellaneous (Carbohydrates For Hypoglycemia) 15 - 30 gm PO UD PRN PRN Reason: Hypoglycemia Treatment Stop: 01/18/19 16:19 Nitroglycerin (Nitrostat) 0.4 mg SL PRN PRN PRN Reason: Chest Pain Stop: 01/19/19 06:26 Last Admin: 12/20/18 08:36 Dose: 0.4 mg Documented by: Ondansetron HCl (Zofran) 4 mg IV Q6H PRN PRN Reason: Nausea Stop: 01/18/19 16:02 Last Admin: 12/21/18 08:52 Dose: 4 mg Documented by: Pantoprazole Sodium (Protonix) 40 mg PO DAILY [facility] Stop: 01/19/19 08:59 Last Admin: 12/21/18 08:56 Dose: 40 mg Documented by: Trazodone HCl (Desyrel) 250 mg PO HS [facility] Stop: 01/18/19 20:59 Last Admin: 12/20/18 21:06 Dose: 250 mg Documented by: (1) Diabetes mellitus, type 2 Diabetes mellitus complication status: with unspecified complications Diabetes mellitus bander and cellophaner machine helper insulin use: without senior living use Qualified Code(s): E11.8 - Type 2 diabetes mellitus with unspecified complications
[2018-12-21] MEDS ORDERED: PROMETHAZINE HCL 12.5 MG in SODIUM CHLORIDE 0.9% 50 ML IV PRN (12:23)
[2018-12-21] MEDS ORDERED: BISACODYL 10 MG SUPP PR STA (13:02)
[2018-12-21] MEDS ORDERED: SOD PHOSPHATE/SOD BIPHOSPHATE ENEMA 132 ML BTL PR ONE (14:12)
--- NOTE | 2018-12-21 15:41 | Discharge Summary ---
Date of Service December 21, 2018 Admission HPI Per Admitting Provider This is a 38[facility]year-old [facility] with a PMH of CAD (s/p ROJAS x 3 in 2017), DM II, hepatitis C, asthma, seizure disorder, depression, history of drug abuse and other medical problems listed below who presents with chest pain starting this morning. Patient states the chest pain is left-sided and feels like someone is sitting on her chest. Has pain radiating to left shoulder and occasionally to jaw. Has had 5 episodes of chest pain today lasting approximately 5-20 minutes that is worse with exertion and improved with rest. Endorses fever, chills, nausea and intermittent shortness of breath. Denies lightheadedness, visual changes, sore throat, cough, wheezing, palpitations, shortness of breath, vomiting, abdominal pain, dysuria, diarrhea, constipation or lower extremity swelling. Patient follows with Dr. Iverson as an outpatient but went to presents 3 weeks ago. States she found out this morning and inform her that she has not been receiving Plavix for the past few weeks. Per med rec in [facility], patient also on metformin, Victoza, gabapentin, Nexium and Suboxone that she has not been receiving [facility]. States that chest pain is similar to pain experienced during 2017 and 2018 admission when she underwent cardiac cath. Cardiac cath in May 2018 with evidence of patent stents, distal disease of 80% within PDA. Medical management was recommended, with Lopressor increased to twice daily. Denies IV drug use since 1.5 years ago. Smoked crack/cocaine 3 weeks ago, just prior to incarceration. In ED today, found to be mildly febrile at 37.9. Leukocytosis of 11.52. EKG with normal sinus rhythm, chest x-ray with no acute abnormalities. Initial troponin negative. Chest CTA without any acute evidence of PE but subtle nonspecific groundglass attenuation and scattered lung cysts and blebs. CT abdomen pelvis without acute abnormality, evidence of bowel obstruction or diverticulitis. Mild wall thickening of the distal esophagus with small hiatal hernia. Abdomen ultrasound with negative study postcholecystectomy. Given 1" ntg paste but still chest pain has recurred. Admission Exam Per Admitting Provider Physical Exam: General Appearance: WD/WN, no apparent distress, resting comfortably Head: normocephalic, atraumatic Eyes: normal inspection, PERRL, EOMI ENT: hearing grossly normal, pharynx normal (moist mucous membranes) Neck: supple, no JVD, no adenopathy Respiratory/Chest: lungs clear to auscultation. No wheezes, rales or rhonchi. No respiratory distress or accessory muscle use Cardiovascular: regular rate, rhythm, systolic murmur heard throughout precordium, normal peripheral pulses, no BLE edema Abdomen/GI: normal bowel sounds, soft, RUQ and epigastric TTP but no guarding Extremities/Musculoskelatal: normal inspection, no calf tenderness, normal capillary refill, no pedal edema Neurologic/Psych: alert, normal mood/affect, oriented x 3 Skin: normal color, warm/dry Principal Diagnosis Chest pain likely secondary to branch vessel disease,not suitable for intervention, no ACS and negative dobutamine stress echo, h/o CAD status post stent placement Discharge Exam Constitutional no acute distress Eyes PERRL, conjunctivae normal, anicteric sclerae ENMT external ear and nose normal, oropharynx normal Neck trachea midline, no thyromegaly Respiratory normal respiratory effort Auscultation: lungs clear to auscultation bilaterally Cardiovascular Rate/Rhythm: regular rhythm Heart Sounds: normal S1 and + murmur (1/6 systolic murmur) Vessels: no JVD Extremities: no edema Gastrointestinal (Abdomen) Inspection/Auscultation: abdomen normal to inspection and normal bowel sounds Percussion/Palpation: abdomen soft Neurologic PERRL, EOMI, accommodation nl, no face palsy, no dysarthria Lymphatic no cervical or axillary lymphadenopathy Discharge Data Allergies Allergy/AdvReac Type Severity Reaction Status Date / Time lidocaine Allergy Intermediate HIVES Verified 12/19/18 12:47 procaine Allergy Intermediate HIVES Verified 12/19/18 12:47 Penicillins Allergy Mild HAD NO Verified 12/19/18 12:47 PROBLEM WITH ZOSYN strawberry Allergy Mild HIVES Verified 12/19/18 12:47 cephalexin AdvReac Intermediate YEAST Verified 12/19/18 12:47 INFECTIONS egg AdvReac Intermediate GI UPSET Verified 12/19/18 12:47 tramadol AdvReac Intermediate SEIZURES Verified 12/20/18 12:17 mivacurium AdvReac Mild STOMACH Verified 12/19/18 12:47 PAINS azithromycin AdvReac Unknown Unknown Verified 12/20/18 12:17 Consultations 12/19/18 14:18 ED Decision to Admit Stat 12/19/18 16:03 Consult Cardiology Routine Consult Case Management - Discharge Planning Routine Ordered Studies 12/19/18 12:09 CT angio chest PE protocol Stat 12/19/18 12:38 CT abd pelvis IV con only Stat US abdomen limited Stat Hospital Course (1) Chest pain: This is a 38-year-old female from [facility] with a PMH of CAD (s/p ROJAS x 3 in 2017), DM II, hepatitis C, asthma, seizure disorder, depression, history of drug abuse and other medical problems listed below who presents with chest pain starting this morning. 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 mild valvular aortic stenosis with mild aortic regurgitation Nonischemic cath dobutamine stress echo Appreciate cardiology input and recommendation Continue aspirin 81mg daily, clopidogrel 75 mg daily( discontinued), metoprolol 50 mg twice daily, and atorvastatin 80 mg daily Suspected branch vessel disease as per cardiology not amenable to intervention ImDur 30 mg once daily added for pain control Remains stable and denies any more chest pain or cardiac symptoms Will discharge home today (2) Fever: Initial temperature of 37.9 -CXR, CT abd/pelvis without evidence of infection -Gastroenteritis present in half-way, patient had diarrhea 3 days ago that is since resolved -Blood culture -Negative -Tylenol PRN (3) Seizure disorder: No recent seizures. Continue Keppra No more seizures (4) Hypertension: Normotensive -Resumed on previous Lopressor 50 mg twice daily dose, per Dr. Rutherford -Continue lisinopril -Blood pressure is controlled (5) Diabetes mellitus, type 2: Most recent A1c 7.5 in May 2018 -Repeat a1c -improves at 6.8 -Hold home agents -SSI while in-patient -BSG AC HS (6) GERD (gastroesophageal reflux disease): Continue PPI (7) Depression: Continue SSRI DVT Ppx: SQ heparin Code status: FULL PCP: Lukasz Dispo: Observation telemetry. Plan to return home once medically stable. Discharge this afternoon Total Time Total Time Spent Total Time Spent (In Minutes): 35 minutes Total Time Includes: Examination of the Patient, Discharge Planning, Medication Reconciliation and Communication With Other Providers Discharge Plan Discharge Items [facility] Reason For Visit: CHEST PAIN Discharge Diagnosis: Chest pain likely secondary to branch vessel disease,not suitable for intervention, no ACS and negative dobutamine stress echo, h/o CAD status post stent placement Condition: Good Discharge Goals: Decrease discomfort, Improve function and Increase independence Activity: Resume your previous activity Non-emergency contact: Primary Care Provider Call non-emergency contact if: you have any medication questions and your symptoms worsen Follow-up/Referrals: [facility] [Primary Care Provider] - Diet: Carb Consistent or DM2 and Heart Healthy Addtl Provider Instructions: You do not need any more Plavix and that has been discontinued. New medication-M. Dur 30 mg daily Simvastatin and ibuprofen have been discontinued Atorvastatin 80 mg daily and Metoprolol tartrate 50 mg twice daily Prescriptions: New atorvastatin 40 mg Tablet 80 mg PO QAM 30 Days Qty: 60 RF: 0 isosorbide mononitrate 30 mg Tablet Extended Release 24 Hr 30 mg PO QAM 30 Days Qty: 30 RF: 0 metoprolol tartrate 50 mg Tablet 50 mg PO BID 30 Days Qty: 60 RF: 0 Continued levetiracetam [Keppra] 500 mg Tablet 500 mg PO BID RF: 0 trazodone 100 mg tablet 250 mg PO HS RF: 0 escitalopram oxalate [Lexapro] 20 mg tablet 20 mg PO DAILY RF: 0 gabapentin 600 mg Tablet 600 mg PO TID RF: 0 buspirone 30 mg Tablet 30 mg PO BID RF: 0 omeprazole 20 mg Capsule,Delayed Release(Dr/Ec) 20 mg PO DAILY RF: 0 metoprolol tartrate 25 mg Tablet 25 mg PO BID RF: 0 Victoza 3-Zac 0.6 mg/0.1 mL (18 mg/3 mL) Pen Injector 0.6 mg SUBCUT DAILY RF: 0 metformin 1,000 mg Tablet 1,000 mg PO BID RF: 0 aspirin 81 mg tablet,delayed release (DR/EC) 81 mg PO DAILY RF: 0 glipizide 10 mg Tablet 10 mg PO DAILY RF: 0 lisinopril 5 mg Tablet 5 mg PO DAILY RF: 0 Discontinued ibuprofen 200 mg Capsule 400 mg PO BID PRN (Reason: Pain) RF: 0 simvastatin 40 mg Tablet 40 mg PO DAILY RF: 0 Stand-Alone Forms: Call Back Authorization, My [facility] Discharge Orders: Discharge Order (Routine); Ordered 12/21/18 Ordered By: Everardo Buchanan Admission Data Admit Date/Time: 12/20/18 00:15 Attending Provider: Everardo Buchanan Admit Provider: Zina Smith Primary Care Provider: [facility] Other Providers: Sandeep Hall Sabrina M. Service: Telemetry Other Interventions: Discharge Summary Assessment (RN) Last Done: 12/21/18 14:01 DC Date/Time DO NOT enter until pt leaves facility: 12/21/18 14:50
[2018-12-22 12:29] LABS: Codeine Urine NEGATIVE NG/ML (CUTOFF=50); Hydrocodone Urine NEGATIVE NG/ML (CUTOFF=50); Hydromor Urine NEGATIVE NG/ML (CUTOFF=50); Morphine Urine 488 NG/ML (CUTOFF=50); Norhydrocodone Conf Ur NEGATIVE NG/ML (CUTOFF=50); Noroxycodone Urine NEGATIVE NG/ML (CUTOFF=50); Oxycodone Urine NEGATIVE NG/ML (CUTOFF=50); Oxymorph Urine NEGATIVE NG/ML (CUTOFF=50)
== END 2018-12-21 14:50 | DRG 303 ==
LOC: 2E 11:43 → ED 11:43 → 2E 15:42

== ENCOUNTER 2020-02-09 07:41 | Inpatient (IN) ==
[2020-02-09] MEDS ORDERED: methylPREDNISolone 125 MG/2 ML VIAL IV STA (07:54)
[2020-02-09] MEDS ORDERED: ALBUT/IPRATROP 3MG/0.5MG NEB 3 ML VIAL INH STA (07:54)
[2020-02-09 08:12] LABS: Basophils # (auto) 0.02 K/uL (0-0.2); Basophils % (auto) 0.1 %; Eosinophils # (auto) 0.05 K/uL (0-0.5); Eosinophils % (auto) 0.2 %; Hematocrit (blood only) 32.2 % (37-47); Immature Granulocytes # (auto) 0.19 K/uL (0.00-0.02); Immature Granulocytes % (auto) 0.9 %; Lymphocytes # (auto) 1.47 K/uL (1.2-3.4); Lymphocytes % (auto) 6.9 %; Mean Corpuscular Hemoglobin 24.8 pg (25-34); Mean Corpuscular Hgb Conc 31.1 g/dL (32-36); Mean Corpuscular Volume 79.7 fL (80-100); Mean Platelet Volume 10.1 fL (7.4-10.4); Monocytes # (auto) 1.14 K/uL (0.11-0.59); Monocytes % (auto) 5.4 %; Neutrophils # (auto) 18.37 K/uL (1.4-6.5); Neutrophils % (auto) 86.5 %; Nucleated RBC # (auto) 0.09 K/uL (0-0); Nucleated RBC % (auto) 0.4 %; Platelet Count 453 K/uL (130-400); RDW Coefficient of Variation 18.4 % (11.5-14.5); RDW Standard Deviation 53.9 fL (36.4-46.3); Red Blood Count 4.04 M/uL (4.2-5.4); White Blood Count 21.24 K/uL (4.8-10.8)
--- NOTE | 2020-02-09 08:28 | XRay Report ---
XR chest 1V portable CLINICAL HISTORY: Dyspnea COMPARISON STUDY: 12/14/2019 FINDINGS: The heart is mildly enlarged. There are bilateral pulmonary airspace opacities, likely repr esenting pulmonary edema although an infectious/inflammatory processes could appear similar. The find ings are minimally progressive when compared the preceding study. There is subtle underlying nodulari ty of the lungs.[Radiographic follow-up is recommended to exclude true parenchymal nodules IMPRESSION: 1. Slightly progressive diffuse bilateral pulmonary airspace opacities. Pulmonary edema versus a bila teral infectious/inflammatory process. 2. Subtle underlying nodularity of the lung christina. 3. Clinical and radiographic follow-up recommended. ACT 112: Negative or not required by law. Electronically signed by: Jayro Duke M.D. 02/09/2020 8:27 AM
[2020-02-09 08:31] LABS: INR 1.1 (0.9-1.1); Partial Thromboplastin Ratio 0.9; Partial Thromboplastin Time 24.7 Seconds (21.0-31.0); Prothrombin Time 11.7 Seconds (9.0-12.0)
[2020-02-09 08:32] LABS: Albumin Level 2.9 gm/dl (3.4-5.0); BUN Creatinine Ratio 18.9 (10-20); Calcium 9.5 mg/dl (8.5-10.1); Creatinine Clr Calc Pharmacy 111.4 ml/min; Est GFR (African American) 117.7; Est GFR (Non-African American) 101.6; Potassium 3.7 mmol/L (3.5-5.1)
[2020-02-09 08:39] LABS: Albumin Globulin Ratio 0.6 (0.9-2); Bilirubin,Total 0.5 mg/dl (0.2-1); Globulin 5.1 gm/dl (2.5-4.0); Troponin I 0.875 ng/ml (0-0.045)
[2020-02-09 08:50] LABS: Base Excess VBG -1.3 mEq/L; Oxygen Saturation VBG 67.7 %; pH VBG 7.4 (7.36-7.41)
[2020-02-09] MEDS ORDERED: FUROSEMIDE 40 MG/4 ML VIAL IV STA (08:51)
[2020-02-09] MEDS ORDERED: ASPIRIN CHEW 324 MG PO STA (08:58)
[2020-02-09] MEDS ORDERED: levoFLOXacin/D5W 750 MG/150 ML BAG IV STA (08:58)
--- NOTE | 2020-02-09 08:58 | Emergency Department Note ---
History of Present Illness General Chief complaint: Shortness of Breath/Dyspnea Stated complaint: Resp distress Hx COPD Time Seen by Provider: 02/09/20 07:43 Source: patient Mode of arrival: EMS Limitations: no limitations History of Present Illness Provider complaint: Shortness of breath Maximum Pain Intensity: 0 This is a 40-year-old female who presents to the ED with a chief complaint of shortness of breath for the past couple of days. She states that she has been using her nebulizer at home. She has a productive cough for yellowish sputum. She states that she has had this for about a week. She is currently on prednisone. She does not use home oxygen. She does smoke a pack per day of cigarettes. The patient has not had a fever. No nausea or vomiting. No chest pains. Home Medications Home Medications Medication Instructions Recorded Confirmed Type escitalopram oxalate [Lexapro] 20 mg PO QAM 05/30/18 02/09/20 History levetiracetam [Keppra] 500 mg PO BID 05/30/18 02/09/20 History trazodone 250 mg PO HS 05/30/18 02/09/20 History aspirin 81 mg PO QAM 09/08/18 02/09/20 History lisinopril 5 mg PO QAM 09/08/18 02/09/20 History metformin 1,000 mg PO BID 12/19/18 02/09/20 History atorvastatin 80 mg PO HS 12/28/18 02/09/20 History insulin glargine [Lantus Solostar 10 unit SUBCUT HS 05/20/19 02/09/20 History U-100 Insulin] liraglutide [Victoza 2-Zac] 1.2 mg SUBCUT QAM 06/08/19 02/09/20 History albuterol sulfate 2 puff INHALATION Q4 PRN 11/06/19 02/09/20 History albuterol sulfate 2.5 mg INHALATION Q4 PRN 11/06/19 02/09/20 History buprenorphine-naloxone [Suboxone] 0.5 film SUBLINGUAL TID 11/06/19 02/09/20 History buspirone 15 mg PO BID 11/06/19 02/09/20 History clopidogrel [Plavix] 75 mg PO QAM 11/06/19 02/09/20 History diclofenac sodium 75 mg PO BID 11/06/19 02/09/20 History furosemide [Lasix] 20 mg PO QAM 11/06/19 02/09/20 History meclizine 25 mg PO TID PRN 11/06/19 02/09/20 History medroxyprogesterone [Depo-Provera] 150 mg IM Q3M 11/06/19 02/09/20 History nitroglycerin [Nitrostat] 0.4 mg SUBLINGUAL UD PRN 11/06/19 02/09/20 History pantoprazole [Protonix] 40 mg PO DAILY 11/06/19 02/09/20 History potassium chloride [Klor-Con M20] 20 meq PO QAM 11/06/19 02/09/20 History Saccharomyces boulardii [Florastor] 250 mg PO BID #20 cap 12/14/19 02/09/20 Rx Allergies Allergy/AdvReac Type Severity Reaction Status Date / Time lidocaine Allergy Intermediate HIVES Verified 02/09/20 08:41 procaine Allergy Intermediate HIVES Verified 02/09/20 08:41 Penicillins Allergy Mild HAD NO Verified 02/09/20 08:41 PROBLEM WITH ZOSYN strawberry Allergy Mild HIVES Verified 02/09/20 08:41 cephalexin AdvReac Intermediate YEAST Verified 02/09/20 08:41 INFECTIONS egg AdvReac Intermediate GI UPSET Verified 02/09/20 08:41 tramadol AdvReac Intermediate SEIZURES Verified 02/09/20 08:41 azithromycin AdvReac Mild STOMACH Verified 02/09/20 08:41 PAIN Past Med/Surg History Medical History Asthma Coronary artery disease Depression Diabetes mellitus, type 2 Dyslipidemia GERD (gastroesophageal reflux disease) Hepatitis C "Antibiotic screen positive, quantitative RNA positive 08/30/17" Hepatosplenomegaly History of drug abuse History of DVT (deep vein thrombosis) History of renal calculi Hypertension Seizure disorder Surgical History History of cardiac cath 2017- 1 ROJAS to ramus, 2 ROJAS to L circumflex. 40-50% plaque to LAD 2018- distal disease (80%) within PDA History of carpal tunnel surgery History of lumbar spinal fusion Hx of tonsillectomy Status post cholecystectomy Family History Other Diabetes Heart disease Hypertension Kidney stones Seizures Social History Smoking Status: Current every day smoker Tobacco Type: Cigarettes Cigarettes Per Day: 10; Hx Alcohol Use: No Hx Substance Use: Yes Last Used Substance: Unknown Last Used Substance Other:: 3 weeks ago. Last used heroin 1.5 years ago Preferred Language: [place] Communication Ability: Effective Visual Impairment: No Limitations Hearing Ability: Normal Rcis Required: No Beliefs That Will Affect Care: None Current Living Situation: Other Current Living Situation Comment: W/ roommates Feels Safe at Home: Yes Assistive Devices: None Review of Systems A total of 10 systems reviewed and were otherwise negative Physical Exam Vital Signs Vital Signs - 24 hr 02/09/20 07:49 02/09/20 07:55 02/09/20 08:05 Temperature 36.7 C Temperature Source Oral Pulse Rate 104 H Pulse Rate [Apical] 107 H Respiratory Rate 30 H 32 H Respiratory Effort / Characteristics Labored Spontaneous Short of Breath Respiratory Depth Blood Pressure 170/104 H Blood Pressure [Left Arm] Blood Pressure Mean 126 Blood Pressure Mean [Left Arm] Pulse Oximetry 83 L 92 93 Oxygen Delivery Method Nasal Cannula Nasal Cannula Nasal Cannula Oxygen Flow Rate 4 4 4 Sepsis Recent Fever Within 48 Hours No Sepsis New/Unexplained Change in Mental Status No Sepsis Action Taken by Nursing No Action Required Pulse Oximetry Post Tiitration 92 02/09/20 08:07 02/09/20 09:01 02/09/20 09:38 Temperature Temperature Source Pulse Rate Pulse Rate [Apical] 113 H 103 H 112 H Respiratory Rate 24 22 24 Respiratory Effort / Characteristics Non-Labored Respiratory Depth Normal Blood Pressure Blood Pressure [Left Arm] 148/91 H 143/87 H 150/96 H Blood Pressure Mean Blood Pressure Mean [Left Arm] 110 105 114 Pulse Oximetry 95 96 89 L Oxygen Delivery Method Nebulizer Nasal Cannula Nasal Cannula Oxygen Flow Rate 4 4 Sepsis Recent Fever Within 48 Hours Sepsis New/Unexplained Change in Mental Status Sepsis Action Taken by Nursing Pulse Oximetry Post Tiitration 02/09/20 10:38 Temperature Temperature Source Pulse Rate Pulse Rate [Apical] 101 H Respiratory Rate 22 Respiratory Effort / Characteristics Non-Labored Respiratory Depth Normal Blood Pressure Blood Pressure [Left Arm] 149/77 H Blood Pressure Mean Blood Pressure Mean [Left Arm] 101 Pulse Oximetry 94 Oxygen Delivery Method Nasal Cannula Oxygen Flow Rate 4 Sepsis Recent Fever Within 48 Hours Sepsis New/Unexplained Change in Mental Status Sepsis Action Taken by Nursing Pulse Oximetry Post Tiitration CONSTITUTIONAL/VITAL SIGNS: Reviewed / noted above. GENERAL: Non-toxic in appearance. INTEGUMENTARY: Warm, dry, and [place]. HEAD: Normocephalic. EYES: without scleral icterus or trauma. ENT/OROPHARYNX: clear and moist. LYMPHADENOPATHY/NECK: Is supple without lymphadenopathy or meningismus. RESPIRATORY: Lungs reveal some scattered wheezes and rhonchi. Mild increased work of breathing. CARDIOVASCULAR: Regular rate and rhythm. GI/ABDOMEN: Soft and nontender. No organomegaly or pulsatile mass. No rebound or guarding. Normal bowel sounds. EXTREMITIES: Warm and well perfused. BACK: No CVA tenderness. NEUROLOGICAL: Intact without focal deficits. PSYCHIATRIC: normal affect. MUSCULOSKELETAL: Normally developed with good muscle tone. TRIAGE NURSING DOCUMENTATION REVIEWED. Course Administered Medications Discontinued Medications Albuterol (Albut/Ipratrop 3mg/0.5mg Neb 3 Ml Vial) 3 ml INH NOW STA Stop: 02/09/20 07:55 Last Admin: 02/09/20 08:05 Dose: 3 ml Documented by: [id number] Aspirin (Aspirin Chew 324 Mg) 324 mg PO NOW STA Stop: 02/09/20 08:59 Last Admin: 02/09/20 09:32 Dose: 324 mg Documented by: [id number] Furosemide (Furosemide 40 Mg/4 Ml Vial) 40 mg IV NOW STA Stop: 02/09/20 08:52 Last Admin: 02/09/20 09:32 Dose: 40 mg Documented by: [id number] Levofloxacin/Dextrose (Levaquin/D5w) 750 mg in 150 mls @ 100 mls/hr IV NOW STA Stop: 02/09/20 10:27 Last Admin: 02/09/20 09:32 Dose: 100 mls/hr Documented by: [id number] Methylprednisolone (Methylprednisolone 125 Mg/2 Ml Vial) 125 mg IV NOW STA Stop: 02/09/20 07:55 Last Admin: 02/09/20 08:03 Dose: 125 mg Documented by: [id number] Medical Decision Making Differential Diagnosis The differential was considered includes acute myocardial infarction, acute coronary syndrome, myocarditis, pericarditis, pericardial effusions /tamponad, esophageal perforation, pulmonary embolism, pneumonia, pneumothorax, cardiomyopathy, congestive heart, anemia , COPD/asthma exacerbation. Laboratory Data Result diagrams: 02/09/20 08:00 02/09/20 08:00 Lab Results 02/09/20 02/09/20 02/09/20 Range/Units 08:00 08:00 08:00 WBC 21.24 H (4.8-10.8) K/uL RBC 4.04 L (4.2-5.4) M/uL Hgb 10.0 L (12.0-16.0) g/dL Hct 32.2 L (37-47) % MCV 79.7 L (80-100) fL MCH 24.8 L (25-34) pg MCHC 31.1 L (32-36) g/dL RDW Std Deviation 53.9 H (36.4-46.3) fL RDW Coeff of Hannah 18.4 H (11.5-14.5) % Plt Count 453 H (130-400) K/uL MPV 10.1 (7.4-10.4) fL Immature Gran % (Auto) 0.9 % Neut % (Auto) 86.5 % Lymph % (Auto) 6.9 % Vigo % (Auto) 5.4 % Eos % (Auto) 0.2 % Baso % (Auto) 0.1 % Neut # (Auto) 18.37 H (1.4-6.5) K/uL Lymph # (Auto) 1.47 (1.2-3.4) K/uL [place]igo # (Auto) 1.14 H (0.11-0.59) K/uL Eos # (Auto) 0.05 (0-0.5) K/uL Baso # (Auto) 0.02 (0-0.2) K/uL Immature Gran # (Auto) 0.19 H (0.00-0.02) K/uL Absolute Nucleated RBC 0.09 H (0-0) K/uL Nucleated RBC % (auto) 0.4 % PT 11.7 (9.0-12.0) Seconds INR 1.1 (0.9-1.1) APTT 24.7 (21.0-31.0) Seconds PTT Ratio 0.9 VBG pH (7.36-7.41) VBG pCO2 (38-50) mmHg VBG pO2 mmHg VBG HCO3 mmol/L VBG O2 Saturation % VBG Base Excess mEq/L Barometric Pressure mm/Hg Sodium 140 (136-145) mmol/L Potassium 3.7 (3.5-5.1) mmol/L Chloride 109 H (98-107) mmol/L Carbon Dioxide 23 (21-32) mmol/L Anion Gap 8.0 (3-11) BUN 14 (7-18) mg/dl Creatinine 0.73 (0.6-1.2) mg/dl Est Cr Clr Drug Dosing 111.4 ml/min Est GFR ( Amer) 117.7 Est GFR (Non-Af Amer) 101.6 BUN/Creatinine Ratio 18.9 (10-20) Glucose 179 H (70-99) mg/dl Lactate (0.4-2.0) mmol/L Calcium 9.5 (8.5-10.1) mg/dl Total Bilirubin 0.5 (0.2-1) mg/dl AST 88 H (15-37) U/L ALT 51 (12-78) U/L Alkaline Phosphatase 118 H (45-117) U/L Troponin I 0.875 H* (0-0.045) ng/ml NT-Pro-B Natriuret Pep 3405 H (0-450) pg/ml Total Protein 8.0 (6.4-8.2) gm/dl Albumin 2.9 L (3.4-5.0) gm/dl Globulin 5.1 H (2.5-4.0) gm/dl Albumin/Globulin Ratio 0.6 L (0.9-2) Adenovirus (PCR) (NotDetected) B. pertussis DNA (PCR) (NotDetected) B.parapertussis DNA PCR (NotDetected) C. pneumoniae DNA (PCR) (NotDetected) Coronavirus OC43 (PCR) (NotDetected) Coronavirus HKU1 (PCR) (NotDetected) Coronavirus 229E (PCR) (NotDetected) COVID-19 PCR (NotDetected) Coronavirus NL63 (PCR) (NotDetected) Human Metapneumovir PCR (NotDetected) Influenza Type A (PCR) (NotDetected) Influenza Type B (PCR) (NotDetected) M. pneumoniae (PCR) (NotDetected) Parainfluenza 1 (PCR) (NotDetected) Parainfluenza 2 (PCR) (NotDetected) Parainfluenza 3 (PCR) (NotDetected) Parainfluenza 4 (PCR) (NotDetected) RSV (PCR) (NotDetected) Entero/Rhino (PCR) (NotDetected) 02/09/20 02/09/20 02/09/20 Range/Units 08:38 09:17 09:30 WBC (4.8-10.8) K/uL RBC (4.2-5.4) M/uL Hgb (12.0-16.0) g/dL Hct (37-47) % MCV (80-100) fL MCH (25-34) pg MCHC (32-36) g/dL RDW Std Deviation (36.4-46.3) fL RDW Coeff of Hannah (11.5-14.5) % Plt Count (130-400) K/uL MPV (7.4-10.4) fL Immature Gran % (Auto) % Neut % (Auto) % Lymph % (Auto) % [place] % (Auto) % Eos % (Auto) % Baso % (Auto) % Neut # (Auto) (1.4-6.5) K/uL Lymph # (Auto) (1.2-3.4) K/uL [place] # (Auto) (0.11-0.59) K/uL Eos # (Auto) (0-0.5) K/uL Baso # (Auto) (0-0.2) K/uL Immature Gran # (Auto) (0.00-0.02) K/uL Absolute Nucleated RBC (0-0) K/uL Nucleated RBC % (auto) % PT (9.0-12.0) Seconds INR (0.9-1.1) APTT (21.0-31.0) Seconds PTT Ratio VBG pH 7.40 (7.36-7.41) VBG pCO2 39 (38-50) mmHg VBG pO2 39 mmHg VBG HCO3 23 mmol/L VBG O2 Saturation 67.7 % VBG Base Excess -1.3 mEq/L Barometric Pressure 731.0 mm/Hg Sodium (136-145) mmol/L Potassium (3.5-5.1) mmol/L Chloride (98-107) mmol/L Carbon Dioxide (21-32) mmol/L Anion Gap (3-11) BUN (7-18) mg/dl Creatinine (0.6-1.2) mg/dl Est Cr Clr Drug Dosing ml/min Est GFR ( Amer) Est GFR (Non-Af Amer) BUN/Creatinine Ratio (10-20) Glucose (70-99) mg/dl Lactate 1.9 (0.4-2.0) mmol/L Calcium (8.5-10.1) mg/dl Total Bilirubin (0.2-1) mg/dl AST (15-37) U/L ALT (12-78) U/L Alkaline Phosphatase (45-117) U/L Troponin I (0-0.045) ng/ml NT-Pro-B Natriuret Pep (0-450) pg/ml Total Protein (6.4-8.2) gm/dl Albumin (3.4-5.0) gm/dl Globulin (2.5-4.0) gm/dl Albumin/Globulin Ratio (0.9-2) Adenovirus (PCR) Not Detected (NotDetected) B. pertussis DNA (PCR) Not Detected (NotDetected) B.parapertussis DNA PCR Not Detected (NotDetected) C. pneumoniae DNA (PCR) Not Detected (NotDetected) Coronavirus OC43 (PCR) Not Detected (NotDetected) Coronavirus HKU1 (PCR) Not Detected (NotDetected) Coronavirus 229E (PCR) Not Detected (NotDetected) COVID-19 PCR Not Detected (NotDetected) Coronavirus NL63 (PCR) Not Detected (NotDetected) Human Metapneumovir PCR Not Detected (NotDetected) Influenza Type A (PCR) Not Detected (NotDetected) Influenza Type B (PCR) Not Detected (NotDetected) M. pneumoniae (PCR) Not Detected (NotDetected) Parainfluenza 1 (PCR) Not Detected (NotDetected) Parainfluenza 2 (PCR) Not Detected (NotDetected) Parainfluenza 3 (PCR) Not Detected (NotDetected) Parainfluenza 4 (PCR) Not Detected (NotDetected) RSV (PCR) Not Detected (NotDetected) Entero/Rhino (PCR) DETECTED A* (NotDetected) Imaging Data Radiologist's Impression: XR chest 1V portable CLINICAL HISTORY: Dyspnea COMPARISON STUDY: 12/14/2019 FINDINGS: The heart is mildly enlarged. There are bilateral pulmonary airspace opacities, likely representing pulmonary edema although an infectious/inflammatory processes could appear similar. The findings are minimally progressive when compared the preceding study. There is subtle underlying nodularity of the lungs.[Radiographic follow-up is recommended to exclude true parenchymal nodules IMPRESSION: 1. Slightly progressive diffuse bilateral pulmonary airspace opacities. Pulmonary edema versus a bilateral infectious/inflammatory process. 2. Subtle underlying nodularity of the lung christina. 3. Clinical and radiographic follow-up recommended. ECG Data Attestation: I personally reviewed and interpreted this ECG as follows: Indication: + SOB/dyspnea Rate (beats per minute): 102 Rhythm: + sinus rhythm ECG ST segments: no ST elevation ECG Findings: no PVCs MDM Narrative The patient presents with shortness of breath in addition to a productive cough for yellow sputum and history of smoking. She does chronically take Lasix as an outpatient as well. Her exam reveals some rhonchi as well as some scattered wheezes and a little increased work of breathing. Her white blood cell count was 21,000. Hemoglobin is 10. Troponin is elevated at 0.875. BNP is elevated at 3405. EKG did not show any acute ischemic changes/ST elevations. Lactate is normal. VBG is unremarkable. The patient's chest x-ray is suggestive of bilateral pulmonary opacities that could be pulmonary edema or infectious. The patient was given a DuoNeb treatment as well as some IV Solu-Medrol. She was given IV Lasix as well as IV Levaquin and p.o. aspirin. She will be seen by the hospitalist for further inpatient evaluation and care. Biofire testing positive for rhinovirus. Impression & Plan Pneumonia, Congestive heart failure, Acute exacerbation of chronic obstructive pulmonary disease, Non-ST elevation (NSTEMI) myocardial infarction Discharge Plan Visit Data Chief Complaint: Shortness of Breath/Dyspnea Stated Complaint: Resp distress Hx COPD ED Provider: Johan Viveros Discharge Problem: Pneumonia, Congestive heart failure, Acute exacerbation of chronic obstructive pulmonary disease, Non-ST elevation (NSTEMI) myocardial infarction Patient Disposition: Being Evaluated by Hospitalist Forms Stand Alone Forms: [facility] Prescriptions Prescriptions: No Action levetiracetam [Keppra] 500 mg Tablet 500 mg PO BID RF: 0 trazodone 100 mg tablet 250 mg PO HS RF: 0 escitalopram oxalate [Lexapro] 20 mg tablet 20 mg PO QAM RF: 0 metformin 1,000 mg Tablet 1,000 mg PO BID RF: 0 atorvastatin 80 mg Tablet 80 mg PO HS RF: 0 Lantus Solostar U-100 Insulin 100 unit/mL (3 mL) insulin pen 10 unit SUBCUT HS RF: 0 Victoza 2-Zac 0.6 mg/0.1 mL (18 mg/3 mL) pen injector 1.2 mg SUBCUT QAM RF: 0 albuterol sulfate 2.5 mg /3 mL (0.083 %) solution for nebulization 2.5 mg inhalation Q4 PRN (Reason: Shortness Of Breath Or Wheezing) RF: 0 clopidogrel [Plavix] 75 mg tablet 75 mg PO QAM RF: 0 potassium chloride [Klor-Con M20] 20 mEq tablet,ER particles/crystals 20 meq PO QAM RF: 0 meclizine 25 mg tablet 25 mg PO TID PRN (Reason: dizzyness) RF: 0 pantoprazole [Protonix] 40 mg tablet,delayed release (DR/EC) 40 mg PO DAILY RF: 0 nitroglycerin [Nitrostat] 0.4 mg Tablet, Sublingual 0.4 mg sublingual UD PRN (Reason: Chest Pain) RF: 0 diclofenac sodium 75 mg tablet,delayed release (DR/EC) 75 mg PO BID RF: 0 furosemide [Lasix] 20 mg tablet 20 mg PO QAM RF: 0 albuterol sulfate 90 mcg/actuation HFA aerosol inhaler 2 puff INHALATION Q4 PRN (Reason: Shortness Of Breath Or Wheezing) RF: 0 buspirone 15 mg tablet 15 mg PO BID RF: 0 medroxyprogesterone [Depo-Provera] 150 mg/mL Syringe 150 mg IM Q3M RF: 0 buprenorphine-naloxone [Suboxone] 8-2 mg film 0.5 film sublingual TID RF: 0 aspirin 81 mg tablet,delayed release (DR/EC) 81 mg PO QAM RF: 0 lisinopril 5 mg Tablet 5 mg PO QAM RF: 0 Saccharomyces boulardii [Florastor] 250 mg capsule 250 mg PO BID Qty: 20 RF: 0 Referrals Referrals: Irvin Iverson MD [Primary Care Provider] - Discharge Problem: Pneumonia Qualifiers: Pneumonia type: due to unspecified organism Laterality: bilateral Lung location: lower lobe of lung Qualified Code(s): J18.9 - Pneumonia, unspecified organism Congestive heart failure Qualifiers: Heart failure type: unspecified Heart failure chronicity: acute Qualified Code(s): I50.9 - Heart failure, unspecified
[2020-02-09 10:46] LABS: Adenovirus PCR Not Detected (NotDetected); Bordetella parapertussis PCR Not Detected (NotDetected); Bordetella pertussis PCR Not Detected (NotDetected); Chlamydia pneumoniae PCR Not Detected (NotDetected); Coronavirus 229E PCR Not Detected (NotDetected); Coronavirus CoV-2 (COVID19)PCR Not Detected (NotDetected); Coronavirus HKU1 PCR Not Detected (NotDetected); Coronavirus NL63 PCR Not Detected (NotDetected); Coronavirus OC43PCR Not Detected (NotDetected); Human Metapneumovirus PCR Not Detected (NotDetected); Influenza A PCR Not Detected (NotDetected); Influenza B PCR Not Detected (NotDetected); Mycoplasma pneumoniae PCR Not Detected (NotDetected); Parainfluenza Virus 1 PCR Not Detected (NotDetected); Parainfluenza Virus 2 PCR Not Detected (NotDetected); Parainfluenza Virus 3 PCR Not Detected (NotDetected); Parainfluenza Virus 4 PCR Not Detected (NotDetected); Respiratory Syncytial VirusPCR Not Detected (NotDetected)
[2020-02-09 10:49] LABS: Rhinovirus/Enterovirus PCR DETECTED (NotDetected)
--- NOTE | 2020-02-09 12:27 | History & Physical Report ---
Date of Service February 09, 2020 Assessment & Plan (1) Acute respiratory failure with hypoxia: (2) Acute bronchitis due to Rhinovirus: (3) Sepsis: (4) Asthma exacerbation: (5) Acute on chronic diastolic CHF (congestive heart failure): -Admit to telemetry -Patient presenting from home with reports of cough and shortness of breath x1 week. Placed on Augmentin and prednisone by PCP on 02/04 -Upon arrival to ED, saturating 83% on room air. Currently saturating well on 4L oxygen via nasal cannula -COVID-19 testing on 02/04 negative, respiratory panel today negative for COVID- 19 however positive for rhinovirus -CXR showing bilateral opacities, suggestive of pulmonary edema and/or infec tious process. proBNP 3405 -Hypoxia likely multifactorial secondary to bronchitis due to rhinovirus, asthma exacerbation, possible CHF and/or pneumonia -Patient meets sepsis criteria with WBC 21K and tachycardia. Noted that patient was recently on prednisone so that may be contributing to the leukocytosis. BP stable, lactic acid 1.9 -S/p DuoNeb, Solu-Medrol 125 mg IV, Levaquin 750 mg IV, Lasix 40 mg IV in ED -Continue diuresis with Lasix 40 mg IV twice daily -Continue Levaquin, check MRSA nasal swab and if positive, will add vancomycin -Solu-Medrol 40 mg IV every 8 hours, scheduled nebs -Pulmonary toilet with flutter valve and incentive spirometer -Echo 05/201819 grade 1 diastolic dysfunction, mild aortic stenosis. Update resting echo -Cardiology consult (6) Elevated troponin: (7) Coronary artery disease: -History of stent in 2017 to ramus and left circumflex -Troponin 0.875 -Reports of chest pain, EKG without acute ST changes -Likely demand ischemia in the setting of acute illness -Resting echo -Continue aspirin, Plavix, statin (8) Diabetes mellitus, type 2: -Hgb A1c 6.9 10/2019 -Lantus and NovoLog per protocol while hospitalized (9) History of drug abuse: -On Suboxone, will continue (10) Seizure disorder: -Stable, No recent seizures -Continue Keppra (11) DVT prophylaxis: -SQ Lovenox History of Present Illness Chief Complaint: Shortness of breath Primary Care Provider: Irvin Iverson MD 40-year-old female with PMH DM type II, CAD s/p stenting, aortic stenosis, HTN, seizure disorder, asthma, and other problems listed below who presents to the ED for evaluation of shortness of breath. Patient was evaluated by PCP on 02/04 for cough and congestion. COVID-19 testing at that time was negative. Patient was started on Augmentin and prednisone. Patient reports no improvement in her symptoms. She reports shortness of breath with minimal exertion. She has had a cough productive for brown sputum. She denies fevers and chills. She reports some mild orthopnea, no lower extremity edema. She does not weigh herself on a day-to-day basis. She denies chest pain. No lightheadedness, dizziness, diaphoresis, syncopal events. Denies abdominal pain, nausea, vomiting, diarrhea. No urinary symptoms. In the ED, patient was hypoxic on room air at 83%. She is currently saturating well on 4 L of oxygen via nasal cannula. Respiratory panel is positive for rhinovirus. CXR suggest CHF/pneumonia. T roponin 0 0.875, EKG without acute ST changes. proBNP 3405. Blood pressure is stable. She is mildly tachycardic. She received nebulizer treatment, full dose aspirin, Lasix 40 mg IV, Levaquin 750 mg IV, Solu-Medrol 125 mg IV. Allergies Allergy/AdvReac Type Severity Reaction Status Date / Time lidocaine Allergy Intermediate HIVES Verified 02/09/20 08:41 procaine Allergy Intermediate HIVES Verified 02/09/20 08:41 Penicillins Allergy Mild HAD NO Verified 02/09/20 08:41 PROBLEM WITH ZOSYN strawberry Allergy Mild HIVES Verified 02/09/20 08:41 cephalexin AdvReac Intermediate YEAST Verified 02/09/20 08:41 INFECTIONS egg AdvReac Intermediate GI UPSET Verified 02/09/20 08:41 tramadol AdvReac Intermediate SEIZURES Verified 02/09/20 08:41 azithromycin AdvReac Mild STOMACH Verified 02/09/20 08:41 PAIN Home Medications Home Medications Medication Instructions Recorded Confirmed Type escitalopram oxalate [Lexapro] 20 mg PO QAM 05/30/18 02/09/20 History levetiracetam [Keppra] 500 mg PO BID 05/30/18 02/09/20 History trazodone 250 mg PO HS 05/30/18 02/09/20 History aspirin 81 mg PO QAM 09/08/18 02/09/20 History lisinopril 5 mg PO QAM 09/08/18 02/09/20 History metformin 1,000 mg PO BID 12/19/18 02/09/20 History atorvastatin 80 mg PO HS 12/28/18 02/09/20 History insulin glargine [Lantus Solostar 10 unit SUBCUT HS 05/20/19 02/09/20 History U-100 Insulin] liraglutide [Victoza 2-Zac] 1.2 mg SUBCUT QAM 06/08/19 02/09/20 History albuterol sulfate 2 puff INHALATION Q4 PRN 11/06/19 02/09/20 History albuterol sulfate 2.5 mg INHALATION Q4 PRN 11/06/19 02/09/20 History buprenorphine-naloxone [Suboxone] 0.5 film SUBLINGUAL TID 11/06/19 02/09/20 History buspirone 15 mg PO BID 11/06/19 02/09/20 History clopidogrel [Plavix] 75 mg PO QAM 11/06/19 02/09/20 History furosemide [Lasix] 20 mg PO QAM 11/06/19 02/09/20 History meclizine 25 mg PO TID PRN 11/06/19 02/09/20 History medroxyprogesterone [Depo-Provera] 150 mg IM Q3M 11/06/19 02/09/20 History nitroglycerin [Nitrostat] 0.4 mg SUBLINGUAL UD PRN 11/06/19 02/09/20 History potassium chloride [Klor-Con M20] 20 meq PO QAM 11/06/19 02/09/20 History amoxicillin-pot clavulanate 1 tab PO BID 02/09/20 02/09/20 History esomeprazole magnesium 40 mg PO DAILY 02/09/20 02/09/20 History ferrous sulfate 325 mg PO DAILY 02/09/20 02/09/20 History fluticasone propionate [Flovent 2 puff INHALATION BID 02/09/20 02/09/20 History HFA] gabapentin 300 mg PO TID 02/09/20 02/09/20 History meloxicam 15 mg PO DAILY 02/09/20 02/09/20 History prednisone 40 mg PO DAILY 02/09/20 02/09/20 History Past Med/Surg History Medical History (Updated 02/09/20 @ 12:37 by JOSETTE Lowry) Asthma Chronic diastolic CHF (congestive heart failure) Coronary artery disease Depression Diabetes mellitus, type 2 Dyslipidemia GERD (gastroesophageal reflux disease) Hepatitis C "Antibiotic screen positive, quantitative RNA positive 08/30/17" Hepatosplenomegaly History of drug abuse History of DVT (deep vein thrombosis) History of renal calculi Hypertension Seizure disorder Surgical History History of cardiac cath 2017- 1 ROJAS to ramus, 2 ROJAS to L circumflex. 40-50% plaque to LAD 2018- distal disease (80%) within PDA History of carpal tunnel surgery History of lumbar spinal fusion Hx of tonsillectomy Status post cholecystectomy Family History Other Diabetes Heart disease Hypertension Kidney stones Seizures Social History Smoking Status: Current every day smoker Tobacco Type: Cigarettes Cigarettes Per Day: 10; Second Hand Exposure: No; Do You Dip or Chew Tobacco: No; Tobacco Cessation Education Requested by Patient: No Hx Alcohol Use: No Hx Substance Use: Yes Last Used Substance: Unknown Last Used Substance Other:: 3 weeks ago. Last used heroin 1.5 years ago Substance Use Type Other:: 1.5 years ago Preferred Language: Tuvaluan Communication Ability: Effective Visual Impairment: No Limitations Hearing Ability: Normal Rheumatology Specialist Required: No Beliefs That Will Affect Care: None Current Living Situation: Other Current Living Situation Comment: lives with roommates Other Information That Helps Us Care for You: No Feels Safe at Home: Yes Safety Concerns: Feels Safe At This Time Assistive Devices: None Review of Systems Review of Systems: ROS per HPI, all other systems reviewed and negative Physical Exam Constitutional: WD/WN, vitals as above Ill-appearing however in no acute distress Eyes: PERRL, conjunctivae normal, anicteric sclerae ENMT: external ear and nose normal, oropharynx normal Respiratory: + tachypneic (Mild, able to speak in full sentences) Auscultation: + diminished lung sounds, + rhonchi (Bilateral) and + wheezes (Bilateral, expiratory) Cardiovascular: Rate/Rhythm: regular rate and regular rhythm Vessels: normal peripheral pulses Extremities: no edema Gastrointestinal (Abdomen): normal bowel sounds, soft, nontender, no hepatosplenomegaly Musculoskeletal: no cyanosis or clubbing, extremities motor strength 5/5 Skin: no rashes, warm and dry Neurologic: PERRL, EOMI, accommodation nl, no face palsy, no dysarthria Psychiatric: A+Ox3, euthymic affect Results & Data Results & Data ([facility]) Vital Signs (Past 12 Hours) Vital Signs Temp Pulse Pulse Resp BP BP Pulse Ox 02/09/20 11:50 87 16 96 02/09/20 10:38 101 H 22 149/77 H 94 02/09/20 09:38 112 H 24 150/96 H 89 L 02/09/20 09:01 103 H 22 143/87 H 96 02/09/20 08:07 113 H 24 148/91 H 95 02/09/20 08:05 107 H 32 H 93 02/09/20 07:55 92 02/09/20 07:49 36.7 C 104 H 30 H 170/104 H 83 L Laboratory Results Short CBC 02/09/20 Range/Units 08:00 WBC 21.24 H (4.8-10.8) K/uL Hgb 10.0 L (12.0-16.0) g/dL Hct 32.2 L (37-47) % Plt Count 453 H (130-400) K/uL BMP 02/09/20 08:00 Sodium 140 Potassium 3.7 Chloride 109 H Carbon Dioxide 23 BUN 14 Creatinine 0.73 Glucose 179 H Calcium 9.5 Cardiac Enzymes 02/09/20 Range/Units 08:00 Troponin I 0.875 H* (0-0.045) ng/ml Liver Function 02/09/20 Range/Units 08:00 Total Bilirubin 0.5 (0.2-1) mg/dl AST 88 H (15-37) U/L ALT 51 (12-78) U/L Alkaline Phosphatase 118 H (45-117) U/L Albumin 2.9 L (3.4-5.0) gm/dl Diagnostic Findings CXR IMPRESSION: 1. Slightly progressive diffuse bilateral pulmonary airspace opacities. Pulmonary edema versus a bilateral infectious/inflammatory process. 2. Subtle underlying nodularity of the lung christina. 3. Clinical and radiographic follow-up recommended. Code Status & VTE Plan VTE Prophylaxis Plan VTE Prophylaxis will be ordered: Yes Supervising Physician Co-Signing Physician Notes I, Dr. Orlin Green, have seen and examined the patient with nurse practitioner and agree with the assessment and plan as above and would like to comment that On exam General: appears tired in appearance Lungs: no wheezing, diffuse congestion on auscultation Heart: regular rate Abdomen: soft, nontender, positive bowel sounds Neuro: moves all extremities, verbal, no facial droop Extremities: mild edema of bilateral lower extremities Assessment and Plan -This a patient with rhinovirus and pulmonary infiltrates which contribute to the hypoxia. The treatment is to give diuretics and respiratory antibiotics of Levaquin, IV solumedrol, nebulizer treatments. obtain further lung imaging with CTA. cardiac workup with echocardiogram, cardiology consult, and trend the troponins. patient does not appear to have chest pain and likely the elevated troponins are from respiratory illness. on droplet precautions. MRSA nasal swab. management of type 2 diabetes mellitus with insulin. continue home dose suboxone and Keppra -agree with other assessment and plans as documented by nurse practitioner (1) Diabetes mellitus, type 2 Diabetes mellitus complication status: with unspecified complications Diabetes mellitus long-term insulin use: without long-term use Qualified Code(s): E11.8 - Type 2 diabetes mellitus with unspecified complications
[2020-02-09 12:46] LABS: Allen Test Pos (Pos); Base Excess ABG -1.2 mEq/L (-9-1.8); HCO3 ABG 22 mmol/L (19-24); PCO2 ABG 33 mmHg (35-46); PO2 ABG 95 mmHg (80-95); pH ABG 7.45 (7.35-7.45)
[2020-02-09] MEDS ORDERED: GLUCOSE 40% GEL 15 GM TUBE PO PRN (12:48)
[2020-02-09] MEDS ORDERED: GLUCOSE 10 TABS/TUBE PO PRN (12:48)
[2020-02-09] MEDS ORDERED: DEXTROSE 50% 50 ML SYRINGE IV PRN (12:48)
[2020-02-09] MEDS ORDERED: CARBOHYDRATES FOR HYPOGLYCEMIA PO PRN (12:48)
[2020-02-09] MEDS ORDERED: ACETAMINOPHEN 325 MG TAB PO PRN (12:48)
[2020-02-09] MEDS ORDERED: GLUCAGON FOR INJ 1 MG VIAL SQ PRN (12:48)
[2020-02-09] MEDS: BUPRENORPHINE/NALOXONE 8/2 MG TAB SL SCH ×2 (13:36→20:30)
[2020-02-09] MEDS: methylPREDNISolone 40 MG in SYRINGE 0 ML IV SCH ×2 (13:36→22:43)
[2020-02-09] MEDS: GABAPENTIN 300 MG CAP PO SCH ×2 (13:36→20:32)
--- NOTE | 2020-02-09 14:14 | Electrocardiogram Report ---
Test Reason : Blood Pressure : / mmHG Vent. Rate : 102 BPM Atrial Rate : 102 BPM P-R Int : 138 ms QRS Dur : 074 ms QT Int : 358 ms P-R-T Axes : 051 053 -72 degrees QTc Int : 466 ms Poor data quality, interpretation may be adversely affected Sinus tachycardia Possible Left atrial enlargement Abnormal ECG When compared with ECG of 14-DEC-2019 19:39, Inverted T waves have replaced nonspecific T wave abnormality in Inferior leads Confirmed by Carlos Goodman ([id number]) on 02/09/2020 2:14:09 PM Referred By: REFERRED SELF Confirmed By:Carlos Goodman
[2020-02-09] MEDS: ALBUT/IPRATROP 3MG/0.5MG NEB 3 ML VIAL NEB SCH ×3 (14:56→22:49)
--- NOTE | 2020-02-09 15:27 | Cardiology Consultation ---
Date of Consultation February 09, 2020 Assessment & Plan (1) Acute on chronic diastolic CHF (congestive heart failure): -decompensation may be related to dietary indiscretion with salt along with her acute infection. -agree with intravenous Lasix 40 mg b.i.d.. -encouraged to follow a low-salt diet. -instructed on use of daily weights and sliding-scale diuretics. -continue lisinopril. (2) Elevated troponin: -likely demand ischemia related to the acute decompensation. -would trend troponin I levels. -consider addition of low-dose beta-blockade. (3) Coronary artery disease: -LCx and ramus intermedius ROJAS placed back in October 2016. -stents patent at time of cardiac catheterization May 2018. -80% right-sided PDA stenosis, small vessel, medical management, May 2018 -agree with continuation of aspirin, Plavix, and atorvastatin. (4) Aortic valvular disorder: -mild aortic stenosis and aortic insufficiency on echo November 2018. -repeat study pending. History of Present Illness Attending Physician: Orlin Green MD History of Present Illness Ms. Gonzalez is a 40-year-old female admitted earlier today in decompensated diastolic CHF. This consultation was ordered to assist in her cardiac management. The patient claims she was in her usual state of health until approximately 4-6 days prior to presentation. The patient began to experience progressive shortness of breath, increasing orthopnea, and lower extremity edema. At no time did she experience chest discomfort. On presentation to our emergency room, the patient was noted to be hypoxic with an oxygen saturation of 83%. Her COVID test was negative, however, rhino virus was positive. Chest x-ray showed significant pulmonary edema. The patient admits to noncompliance with a low-salt diet. She does not follow daily weights and sliding-scale diuretics. The patient carries a history of coronary artery disease. She had drug-eluting stents placed in the distal LCx and the ramus intermedius in October 2016. She underwent a repeat cardiac catheterization May 2018. This revealed patent stents and an 80% right PDA stenosis. The vessel was small and medical management was recommended. The patient was admitted in November 2018 with a chest pain syndrome. She had a negative dobutamine stress echocardiogram performed at that time. The echocardiogram also noted mild aortic stenosis and mild aortic insufficiency. Currently, patient is resting comfortably in bed without complaints. Past medical and surgical history 1. Coronary artery disease-see above 2. LCx ROJAS-October 2016 3. Ramus intermedius ROJAS-October 2016 4. Hypertension 5. Hypercholesterolemia 6. Mild aortic stenosis 7. Mild aortic insufficiency 8. Diabetes mellitus 9. COPD 10. GERD 11. Seizure disorder 12. Hepatitis-C 13. Nephrolithiasis 14. Depression 15. Carpal tunnel release 16. Lumbar fusion 17. History of IV drug abuse Social history Single, lives with her boyfriend Currently on disability Quit tobacco use in November 2018, 30 pack year history No alcohol No current drug abuse Family history Mother had CABG in her late 40s Father's history is unknown Review of systems A 10 review systems was undertaken and negative except for that described above. Allergies Allergy/AdvReac Type Severity Reaction Status Date / Time lidocaine Allergy Intermediate HIVES Verified 02/09/20 08:41 procaine Allergy Intermediate HIVES Verified 02/09/20 08:41 Penicillins Allergy Mild HAD NO Verified 02/09/20 08:41 PROBLEM WITH ZOSYN strawberry Allergy Mild HIVES Verified 02/09/20 08:41 cephalexin AdvReac Intermediate YEAST Verified 02/09/20 08:41 INFECTIONS egg AdvReac Intermediate GI UPSET Verified 02/09/20 08:41 tramadol AdvReac Intermediate SEIZURES Verified 02/09/20 08:41 azithromycin AdvReac Mild STOMACH Verified 02/09/20 08:41 PAIN Home Medications Home Medications Medication Instructions Recorded Confirmed Type escitalopram oxalate [Lexapro] 20 mg PO QAM 05/30/18 02/09/20 History levetiracetam [Keppra] 500 mg PO BID 05/30/18 02/09/20 History trazodone 250 mg PO 05/30/18 02/09/20 History aspirin 81 mg PO QAM 09/08/18 02/09/20 History lisinopril 5 mg PO QAM 09/08/18 02/09/20 History metformin 1,000 mg PO BID 12/19/18 02/09/20 History atorvastatin 80 mg PO HS 12/28/18 02/09/20 History insulin glargine [Lantus Solostar 10 unit SUBCUT HS 05/20/19 02/09/20 History U-100 Insulin] liraglutide [Victoza 2-Zac] 1.2 mg SUBCUT [facility] 06/08/19 02/09/20 History albuterol sulfate 2 puff INHALATION Q4 PRN 11/06/19 02/09/20 History albuterol sulfate 2.5 mg INHALATION Q4 PRN 11/06/19 02/09/20 History buprenorphine-naloxone [Suboxone] 0.5 film SUBLINGUAL TID 11/06/19 02/09/20 History buspirone 15 mg PO BID 11/06/19 02/09/20 History clopidogrel [Plavix] 75 mg PO QAM 11/06/19 02/09/20 History furosemide [Lasix] 20 mg PO QAM 11/06/19 02/09/20 History meclizine 25 mg PO TID PRN 11/06/19 02/09/20 History medroxyprogesterone [Depo-Provera] 150 mg IM Q3M 11/06/19 02/09/20 History nitroglycerin [Nitrostat] 0.4 mg SUBLINGUAL UD PRN 11/06/19 02/09/20 History potassium chloride [Klor-Con M20] 20 meq PO QAM 11/06/19 02/09/20 History amoxicillin-pot clavulanate 1 tab PO BID 02/09/20 02/09/20 History esomeprazole magnesium 40 mg PO DAILY 02/09/20 02/09/20 History ferrous sulfate 325 mg PO DAILY 02/09/20 02/09/20 History fluticasone propionate [Flovent 2 puff INHALATION BID 02/09/20 02/09/20 History HFA] gabapentin 300 mg PO TID 02/09/20 02/09/20 History meloxicam 15 mg PO DAILY 02/09/20 02/09/20 History prednisone 40 mg PO DAILY 02/09/20 02/09/20 History Patient History Medical History (Updated 02/09/20 @ 15:44 by Carlos Goodman MD) Asthma Chronic diastolic CHF (congestive heart failure) Coronary artery disease Depression Diabetes mellitus, type 2 Dyslipidemia GERD (gastroesophageal reflux disease) Hepatitis C "Antibiotic screen positive, quantitative RNA positive 08/30/17" Hepatosplenomegaly History of drug abuse History of DVT (deep vein thrombosis) History of renal calculi Hypertension Seizure disorder Surgical History History of cardiac cath 2017- 1 ROJAS to ramus, 2 ROJAS to L circumflex. 40-50% plaque to LAD 2018- distal disease (80%) within PDA History of carpal tunnel surgery History of lumbar spinal fusion Hx of tonsillectomy Status post cholecystectomy Family History Other Diabetes Heart disease Hypertension Kidney stones Seizures Social History Smoking Status: Current every day smoker Tobacco Type: Cigarettes Cigarettes Per Day: 10; Second Hand Exposure: No; Do You Dip or Chew Tobacco: No; Tobacco Cessation Education Requested by Patient: No Hx Alcohol Use: No Hx Substance Use: Yes Last Used Substance: Unknown Last Used Substance Other:: 3 weeks ago. Last used heroin 1.5 years ago Substance Use Type Other:: 1.5 years ago Preferred Language: Irish Communication Ability: Effective Visual Impairment: No Limitations Hearing Ability: Normal Vascular Tech Required: No Beliefs That Will Affect Care: None Current Living Situation: Other Current Living Situation Comment: lives with roommates Other Information That Helps Us Care for You: No Feels Safe at Home: Yes Safety Concerns: Feels Safe At This Time Assistive Devices: Denture - Upper and Denture - Lower Physical Exam Physical Exam: In general well-developed well-nourished white female no acute distress. HEENT exam is negative. Neck is supple with full carotid upstrokes. No obvious bruits or transmitted murmurs. Jugular venous pressure is to the angle of the jaw at 90. Cardiovascular exam reveals a regular rhythm with distant heart sounds. There is a 2/6 crescendo decrescendo systolic murmur heard loudest at the base. No diastolic murmurs. Lungs note scattered wheezes and rales. Abdomen is obese without bruits. Extremities reveal intact radial artery pulses bilaterally. There is trace pretibial and pedal edema. Results & Data ([facility]) Vital Signs (Past 12 Hours) Vital Signs Temp Pulse Pulse Resp BP BP Pulse Ox 02/09/20 12:48 36.5 C 91 H 26 H 139/87 94 02/09/20 11:50 87 16 96 02/09/20 10:38 101 H 22 149/77 H 94 02/09/20 09:38 112 H 24 150/96 H 89 L 02/09/20 09:01 103 H 22 143/87 H 96 02/09/20 08:07 113 H 24 148/91 H 95 02/09/20 08:05 107 H 32 H 93 02/09/20 07:55 92 02/09/20 07:49 36.7 C 104 H 30 H 170/104 H 83 L Laboratory Results CBC notes hemoglobin 10.0, hematocrit 32.2, white count 21.2, and platelet count of [id number]. Electrolytes noticed sodium of 140, potassium 3.7, chloride 109, bicarb 23, BUN 14, creatinine 0.73, and glucose of 179. Initial troponin was 0.875 with a follow-up I of 0.814. BNP is elevated at 3405. Diagnostic Findings Quick look at the echocardiogram notes normal left ventricular systolic function. EKG notes baseline artifact along sinus tachycardia and nonspecific ST and T-wave abnormality. This is unchanged from a tracing done December 14 2019. Chest x-ray notes cardiomegaly and diffuse interstitial edema. PG Care Time/CCT Total # of Minutes Spent Total Time Spent with Patient: Total time spent is greater than 50% in coordination of care (as documented) at patient's floor/unit and/or counseling patient: Coding Level of Care Code 96646 Inpt Consult Level 4 Diagnoses Acute on chronic diastolic CHF (congestive heart failure) I50.33 Elevated troponin R77.8 Coronary artery disease I25.10 Aortic valvular disorder I35.9
--- NOTE | 2020-02-09 16:28 | XCELERA ---
[id number]
[2020-02-09] MEDS: INSULIN ASPART 100 UNITS/ML 3 ML PEN SC SCH ×2 (16:40→20:35)
[2020-02-09] MEDS ORDERED: OPTIRAY 320 125ml IV ONE (20:02)
--- NOTE | 2020-02-09 20:28 | CT Scan Report ---
CT ANGIOGRAPHY OF THE CHEST, PULMONARY EMBOLUS PROTOCOL CLINICAL HISTORY: PE, hypoxia COMPARISON STUDY: Chest CT December 19, 2018. Chest radiograph February 09, 2020. TECHNIQUE: Following IV administration of 90 mL of Optiray-320, helical axial images of the chest wer e obtained utilizing the pulmonary embolus protocol. Maximal intensity projections and sagittal and coronal reformats were viewed on an independent 3D workstation. IV contrast was administered without complication. Automated exposure control was utilized for the study. A dose lowering technique was utilized adhering to the principles of ALARA. CT DOSE: 659.89 mGy.cm FINDINGS: No pulmonary emboli are identified. There is no thoracic aortic dissection. Mild cardiomeg araceli is noted. There is moderate coronary artery calcification. No pericardial effusion is noted. Note is made of multiple moderately enlarged mediastinal and bilateral hilar lymph nodes. These have deve loped since CT of December 19, 2018 but similar findings were shown on CT of August 30, 2017. Subcarinal no de measures 2.7 cm in short axis diameter. There is a small right pleural effusion. There is no pneum othorax. Lungs are suboptimally assessed due to respiratory motion. There is interlobular septal thic kening. Extensive airspace opacities within the lungs are also noted. A similar pattern was shown on CT of August 30, 2017. No suspicious lesions within the bony thorax are noted. There is no axillary lymph adenopathy. A 2 cm left thyroid nodule is unchanged. IMPRESSION: 1. No pulmonary emboli identified. 2. Interlobular septal thickening which favors interstitial pulmonary edema. Additional extensive caroline ateral airspace opacities within the lungs are nonspecific although favor alveolar edema. An infectio us process could appear similar. Small right pleural effusion. 3. Moderate mediastinal and bilateral hilar lymphadenopathy which is nonspecific however similar find ings were shown on CT of August 30, 2017 and then subsequently resolved. This lymphadenopathy may be reac tive although a lymphoproliferative process cannot be excluded. Short-term follow-up chest CT in 3 mo nths is recommended. 4. Mild cardiomegaly. Moderate coronary artery calcification. ACT 112: Negative or not required by law. Electronically signed by: Kush Rueda M.D. 02/09/2020 8:27 PM
[2020-02-09] MEDS: FLUTICASONE FUROATE 200MCG 14 PUFFS/INHALER INH SCH (20:31)
[2020-02-09] MEDS: busPIRone 15 MG TAB PO SCH (20:32)
[2020-02-09] MEDS: levETIRAcetam 500 MG TAB PO SCH (20:33)
[2020-02-09] MEDS: traZODone HCL 50 MG TAB PO SCH (20:33)
[2020-02-09] MEDS: ATORVASTATIN 40 MG TAB PO SCH (20:34)
[2020-02-09] MEDS: FUROSEMIDE 40 MG in SYRINGE 0 ML IV SCH (20:34)
[2020-02-09] MEDS: ENOXAPARIN INJ 40 MG/0.4 ML SYR SQ SCH (20:35)
[2020-02-09] MEDS ORDERED: INSULIN GLARGINE SOLOSTAR 100 UNITS/ML 3 ML PEN SQ SCH (21:00)
[2020-02-09] MEDS ORDERED: FUROSEMIDE 40 MG/4 ML VIAL IV SCH (21:00)
[2020-02-10] MEDS: ALBUT/IPRATROP 3MG/0.5MG NEB 3 ML VIAL NEB SCH ×6 (03:11→23:19)
[2020-02-10 05:07] LABS: Hematocrit (blood only) 28.6 % (37-47); Mean Corpuscular Hemoglobin 24.9 pg (25-34); Mean Corpuscular Hgb Conc 31.5 g/dL (32-36); Mean Corpuscular Volume 79.2 fL (80-100); Mean Platelet Volume 10.4 fL (7.4-10.4); Platelet Count 372 K/uL (130-400); RDW Coefficient of Variation 18.3 % (11.5-14.5); RDW Standard Deviation 52.8 fL (36.4-46.3); Red Blood Count 3.61 M/uL (4.2-5.4); White Blood Count 14.84 K/uL (4.8-10.8)
[2020-02-10 05:34] LABS: BUN Creatinine Ratio 23.5 (10-20); Calcium 8.6 mg/dl (8.5-10.1); Creatinine Clr Calc Pharmacy 83.8 ml/min; Est GFR (African American) 83.5; Potassium 3.6 mmol/L (3.5-5.1)
[2020-02-10] MEDS: methylPREDNISolone 40 MG in SYRINGE 0 ML IV SCH ×2 (06:39→14:17)
[2020-02-10 06:45] LABS: Estimated Average Glucose 134 mg/dl; Hemoglobin A1C 6.3 % (4.5-5.6)
[2020-02-10] MEDS: levETIRAcetam 500 MG TAB PO SCH ×2 (08:35→20:44)
[2020-02-10] MEDS: FUROSEMIDE 40 MG in SYRINGE 0 ML IV SCH (08:35)
[2020-02-10] MEDS: ESCITALOPRAM OXALATE 20 MG TAB PO SCH (08:36)
[2020-02-10] MEDS: FERROUS SULFATE 325 MG TAB PO SCH (08:36)
[2020-02-10] MEDS: busPIRone 15 MG TAB PO SCH ×2 (08:36→20:45)
[2020-02-10] MEDS: POTASSIUM CHLORIDE CRTAB 20 MEQ TABCR PO SCH (08:36)
[2020-02-10] MEDS: PANTOprazole 40 MG TAB PO SCH (08:36)
[2020-02-10] MEDS: GABAPENTIN 300 MG CAP PO SCH ×3 (08:36→20:46)
[2020-02-10] MEDS: ASPIRIN 81 MG ECTAB PO SCH (08:36)
[2020-02-10] MEDS: CLOPIDOGREL BISULFATE 75 MG TAB PO SCH (08:36)
[2020-02-10] MEDS: lisinopril 5 MG TAB PO SCH (08:36)
[2020-02-10] MEDS: INSULIN ASPART 100 UNITS/ML 3 ML PEN SC SCH ×4 (08:38→20:47)
[2020-02-10] MEDS: BUPRENORPHINE/NALOXONE 8/2 MG TAB SL SCH ×3 (08:39→20:52)
[2020-02-10] MEDS ORDERED: levoFLOXacin/D5W 750 MG/150 ML BAG IV SCH (09:00)
--- NOTE | 2020-02-10 11:16 | Cardiology Progress Note ---
Date of Service February 10, 2020 Assessment & Plan (1) Acute on chronic diastolic CHF (congestive heart failure): -decompensation may be related to dietary indiscretion with salt. -continue IV Lasix 40 mg b.i.d.. -encouraged to follow a low-salt diet. -daily weights and sliding-scale diuretics. -continue lisinopril. (2) Elevated troponin: -likely demand ischemia related to her acute decompensation. -troponin I level decreasing. -consider addition of low-dose beta-blockade. (3) Coronary artery disease: -LCx and ramus intermedius ROJAS placed back in October 2016. -stents patent at time of cardiac catheterization May 2018. -80% right-sided PDA stenosis, small vessel, medical management, May 2018 -agree with continuation of aspirin, Plavix, and atorvastatin. (4) Aortic valvular disorder: -mild aortic stenosis and aortic insufficiency on current echocardiogram. Admission and Anticipated Discharge Date Admission Date: February 09, 2020 Subjective The patient is resting comfortably in the bedside chair without complaints of chest pain. Her dyspnea is improved. Physical Exam Physical Exam: In general well-developed well-nourished white female no acute distress. HEENT exam is negative. Neck is supple with full carotid upstrokes. No obvious bruits or transmitted murmurs. Jugular venous pressure is flat at 90. Cardiovascular exam reveals a regular rhythm with distant heart sounds. There is a 2/6 crescendo decrescendo systolic murmur heard loudest at the base. No diastolic murmurs. Lungs note scattered wheezes and rales. Abdomen is obese without bruits. Extremities reveal intact radial artery pulses bilaterally. There is trace pretibial and pedal edema. Results & Data ([facility]) Vital Signs (Past 12 Hours) Vital Signs Temp Pulse Pulse Resp BP BP Pulse Ox 02/10/20 10:48 96 H 18 97 02/10/20 08:00 36.6 C 108 H 109 H 22 117/87 100 02/10/20 07:15 84 22 98 02/10/20 04:00 108 H 02/10/20 03:11 102 H 20 95 02/10/20 03:03 36.7 C 93 H 97/72 L 95 02/10/20 00:18 37.0 C 98 H 20 116/71 93 02/10/20 00:00 88 PG Care Time/CCT Total # of Minutes Spent Total Time Spent with Patient: Total time spent is greater than 50% in coordination of care (as documented) at patient's floor/unit and/or counseling patient: Coding Level of Care Code 59062 Subseq Hosp Care Lvl 3 Diagnoses Acute on chronic diastolic CHF (congestive heart failure) I50.33 Elevated troponin R77.8 Coronary artery disease I25.10 Aortic valvular disorder I35.9
[2020-02-10] MEDS ORDERED: INSULIN GLARGINE SOLOSTAR 100 UNITS/ML 3 ML PEN SQ STA (13:14)
--- NOTE | 2020-02-10 13:19 | Electrocardiogram Report ---
Test Reason : Blood Pressure : / mmHG Vent. Rate : 084 BPM Atrial Rate : 084 BPM P-R Int : 124 ms QRS Dur : 090 ms QT Int : 390 ms P-R-T Axes : 066 047 004 degrees QTc Int : 460 ms Poor data quality, interpretation may be adversely affected Normal sinus rhythm with sinus arrhythmia Normal ECG When compared with ECG of 09-FEB-2020 07:49, T wave inversion less evident in Inferior leads T wave inversion no longer evident in Lateral leads Confirmed by Carlos Goodman ([id number]) on 02/10/2020 1:19:16 PM Referred By: REFERRED SELF Confirmed By:Carlos Goodman
--- NOTE | 2020-02-10 16:45 | Hospitalist Progress Note ---
Date of Service February 10, 2020 Assessment & Plan (1) Acute respiratory failure with hypoxia: (2) Acute bronchitis due to Rhinovirus: (3) Sepsis: (4) Asthma exacerbation: (5) Acute on chronic diastolic CHF (congestive heart failure): -Patient presenting from home with reports of cough and shortness of breath x1 week. Placed on Augmentin and prednisone by PCP on 02/05/2020 -Upon arrival to ED on 02/10/2020, saturating 83% on room air and then required 4L/min oxygen via nasal cannula; COVID-19 testing on 02/04 negative, respiratory panel today negative for COVID-19; respiratory panel however positive for rhinovirus -CTA chest on 02/10/2020 No pulmonary emboli identified. Interlobular septal thickening which favors interstitial pulmonary edema. Additional extensive bilateral airspace opacities within the lungs are nonspecific although favor alveolar edema. An infectious process could appear similar. Small right pleural effusion. Moderate mediastinal and bilateral hilar lymphadenopathy which is nonspecific however similar findings were shown on CT of August 30, 2017 and then subsequently resolved. This lymphadenopathy may be reactive although a lymphoproliferative process cannot be excluded. Short-term follow-up chest CT in 3 months is recommended. Mild cardiomegaly. Moderate coronary artery calcification. -Patient met sepsis criteria with WBC 21K and tachycardia. Noted that patient was recently on prednisone so that may be contributing to the leukocytosis. -In the ED, patient was given solumedrol 125 mg IV x 1, Levaquin 750 mg IV x 1, and Lasix 40 mg IV x 1 -as of 02/10/2020, patient on room air in the afternoon. WBC downtrended to 14K. Continue the Levaquin daily, taper down the IV solumedrol dosing, monitor off IV Lasix and instead do Lasix BID orally -from cardiology point of view that some contribution for acute on chronic diastolic CHF (congestive heart failure), decompensation may be related to dietary indiscretion with salt, place on low salt diet -plan is to repeat CXR on 02/11/2020 AM (6) Elevated troponin: -likely demand ischemia related to her acute decompensation. -echocardiogram with normal ejection fraction -consider addition of low-dose beta-blockade as per [facility] cardiology and will give metoprolol succinate 25 mg daily. (7) Coronary artery disease: -History of stent in 2017 to ramus and left circumflex -Continue home dose aspirin, Plavix, statin, lisinopril (8) Diabetes mellitus, type 2: -Hgb A1c 6.9 10/2019 -Lantus and NovoLog per protocol while hospitalized -solumedrol taper as respiratory status improved and to reduce blood sugars (9) History of drug abuse: -On Suboxone, will continue (10) Seizure disorder: -Stable, No recent seizures -Continue Keppra (11) DVT prophylaxis: -SQ Lovenox Admission and Anticipated Discharge Date Admission Date: February 09, 2020 Subjective She was titrated off supplementary oxygen in the afternoon of 02/10/2020. Patient on room air eating the meal. some cough but no respiratory distress. denies acute pain. no chest pain or abdomen pain. denies other symptoms Review of Systems Review of Systems: All systems reviewed & are unremarkable except as noted in Subjective Physical Exam Constitutional: cooperative Eyes: PERRL, conjunctivae normal, anicteric sclerae EOM intact bilaterally ENMT: external ear and nose normal, oropharynx normal Neck: normal visual inspection Respiratory: normal respiratory effort on room air, lung auscultation with some congestion Cardiovascular: Rate/Rhythm: regular rate and regular rhythm Gastrointestinal (Abdomen): normal bowel sounds, soft, nontender, no hepatosplenomegaly Musculoskeletal: Head/Neck/Chest: normocephalic and head atraumatic Neurologic: PERRL, EOMI, accommodation nl, no face palsy, no dysarthria CN's II-XI intact bilaterally Psychiatric: A+Ox3, euthymic affect Results & Data Results & Data ([facility]) Vital Signs (Past 12 Hours) Vital Signs Temp Pulse Pulse Resp BP Pulse Ox 02/10/20 16:00 37.0 C 82 84 22 119/72 93 02/10/20 15:28 90 18 93 02/10/20 12:00 36.8 C 80 20 130/65 94 02/10/20 10:48 96 H 18 97 02/10/20 08:00 36.6 C 108 H 109 H 22 117/87 100 02/10/20 07:15 84 22 98 (1) Diabetes mellitus, type 2 Diabetes mellitus complication status: with unspecified complications 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
[2020-02-10] MEDS: METOPROLOL SUCC 25MG EXT REL TAB PO SCH (17:55)
[2020-02-10] MEDS: FUROSEMIDE 40 MG TAB PO SCH (17:55)
[2020-02-10] MEDS: FLUTICASONE FUROATE 200MCG 14 PUFFS/INHALER INH SCH (20:43)
[2020-02-10] MEDS: ENOXAPARIN INJ 40 MG/0.4 ML SYR SQ SCH (20:44)
[2020-02-10] MEDS: traZODone HCL 50 MG TAB PO SCH (20:45)
[2020-02-10] MEDS: ATORVASTATIN 40 MG TAB PO SCH (20:45)
[2020-02-10] MEDS: INSULIN GLARGINE SOLOSTAR 100 UNITS/ML 3 ML PEN SQ SCH (20:46)
[2020-02-11] MEDS: ALBUT/IPRATROP 3MG/0.5MG NEB 3 ML VIAL NEB SCH ×2 (03:32→07:23)
[2020-02-11 05:09] LABS: Basophils # (auto) 0.01 K/uL (0-0.2); Eosinophils # (auto) 0.04 K/uL (0-0.5); Eosinophils % (auto) 0.2 %; Hemoglobin 9.5 g/dL (12.0-16.0); Immature Granulocytes # (auto) 0.27 K/uL (0.00-0.02); Immature Granulocytes % (auto) 1.3 %; Lymphocytes % (auto) 21.5 %; Mean Corpuscular Hemoglobin 25.3 pg (25-34); Mean Corpuscular Hgb Conc 31.7 g/dL (32-36); Mean Corpuscular Volume 79.8 fL (80-100); Mean Platelet Volume 10.1 fL (7.4-10.4); Monocytes # (auto) 1.23 K/uL (0.11-0.59); Monocytes % (auto) 5.9 %; Neutrophils # (auto) 14.88 K/uL (1.4-6.5); Neutrophils % (auto) 71.1 %; Platelet Count 435 K/uL (130-400); RDW Coefficient of Variation 18.4 % (11.5-14.5); RDW Standard Deviation 53.5 fL (36.4-46.3); Red Blood Count 3.76 M/uL (4.2-5.4); White Blood Count 20.93 K/uL (4.8-10.8)
[2020-02-11 05:24] LABS: Albumin Level 2.9 gm/dl (3.4-5.0); BUN Creatinine Ratio 28.7 (10-20); Creatinine Clr Calc Pharmacy 73.4 ml/min; Est GFR (African American) 76.7; Est GFR (Non-African American) 66.2; Magnesium 1.9 mg/dl (1.8-2.4); Potassium 3.7 mmol/L (3.5-5.1)
[2020-02-11 05:27] LABS: Albumin Globulin Ratio 0.6 (0.9-2); Bilirubin,Total 0.4 mg/dl (0.2-1); Globulin 4.8 gm/dl (2.5-4.0); Phosphorus 4.1 mg/dl (2.5-4.9); Total Protein 7.7 gm/dl (6.4-8.2)
[2020-02-11] MEDS ORDERED: MAGNESIUM SULFATE / D5W 1 GM/100 ML BAG IV ONE (06:48)
[2020-02-11] MEDS: ESCITALOPRAM OXALATE 20 MG TAB PO SCH (07:57)
[2020-02-11] MEDS: levETIRAcetam 500 MG TAB PO SCH (07:57)
[2020-02-11] MEDS: FERROUS SULFATE 325 MG TAB PO SCH (07:57)
[2020-02-11] MEDS: POTASSIUM CHLORIDE CRTAB 20 MEQ TABCR PO SCH (07:57)
[2020-02-11] MEDS: FUROSEMIDE 40 MG TAB PO SCH (07:57)
[2020-02-11] MEDS: PANTOprazole 40 MG TAB PO SCH (07:58)
[2020-02-11] MEDS: METOPROLOL SUCC 25MG EXT REL TAB PO SCH (08:04)
[2020-02-11] MEDS: CLOPIDOGREL BISULFATE 75 MG TAB PO SCH (08:04)
[2020-02-11] MEDS: lisinopril 5 MG TAB PO SCH (08:04)
[2020-02-11] MEDS: GABAPENTIN 300 MG CAP PO SCH (08:04)
[2020-02-11] MEDS: busPIRone 15 MG TAB PO SCH (08:04)
[2020-02-11] MEDS: ASPIRIN 81 MG ECTAB PO SCH (08:04)
[2020-02-11] MEDS: INSULIN GLARGINE SOLOSTAR 100 UNITS/ML 3 ML PEN SQ SCH (08:05)
[2020-02-11] MEDS: INSULIN ASPART 100 UNITS/ML 3 ML PEN SC SCH (08:05)
[2020-02-11] MEDS: BUPRENORPHINE/NALOXONE 8/2 MG TAB SL SCH (08:21)
[2020-02-11] MEDS ORDERED: methylPREDNISolone 40 MG in SYRINGE 0 ML IV SCH (09:00)
--- NOTE | 2020-02-11 10:08 | Hospitalist Progress Note ---
Date of Service February 11, 2020 Assessment & Plan (1) Acute respiratory failure with hypoxia: (2) Acute bronchitis due to Rhinovirus: (3) Sepsis: (4) Asthma exacerbation: (5) Acute on chronic diastolic CHF (congestive heart failure): -Patient presenting from home with reports of cough and shortness of breath x1 week. Placed on Augmentin and prednisone by PCP on 02/05/2020 -Upon arrival to ED on 02/10/2020, saturating 83% on room air and then required 4L/min oxygen via nasal cannula; COVID-19 testing on 02/04 negative, respiratory panel today negative for COVID-19; respiratory panel however positive for rhinovirus -CTA chest on 02/10/[address] scan 1. No pulmonary emboli identified. 2. Interlobular septal thickening which favors interstitial pulmonary edema. Additional extensive bilateral airspace opacities within the lungs are nonspecific although favor alveolar edema. An infectious process could appear similar. Small right pleural effusion. 3. Moderate mediastinal and bilateral hilar lymphadenopathy which is nonspecific however similar findings were shown on CT of August 30, 2017 and then subsequently resolved. This lymphadenopathy may be reactive although a lymphoproliferative process cannot be excluded. Short-term follow-up chest CT in 3 months is recommended. 4. Mild cardiomegaly. Moderate coronary artery calcification. -Patient met sepsis criteria with WBC 21K and tachycardia. Noted that patient was recently on prednisone so that may be contributing to the leukocytosis. -In the ED, patient was given solumedrol 125 mg IV x 1, Levaquin 750 mg IV x 1, and Lasix 40 mg IV x 1 -as of 02/10/2020, patient on room air in the afternoon. WBC downtrended to 14K. Continue the Levaquin daily, taper down the IV solumedrol dosing, monitor off IV Lasix and instead do Lasix BID orally -from cardiology point of view that some contribution for acute on chronic diastolic CHF (congestive heart failure), decompensation may be related to dietary indiscretion with salt, place on low salt diet -02/11/2020 updates Patient is stable and on room air, patient saturating well at rest. However, on 2 step test, patient requires 2 liters/min with ambulation. Ideally, hospitalist would keep patient in the hospital for further inpatient treatment, however, hospital discharge on 02/11/2020 is being expedited because patient reports that her landlord is demanding a meeting in person and patient is in a hurry to return to her current housing for this meeting. store manager requested to arrange patient to have oxygen tank and taxi voucher so that patient can be discharged from hospital so patient can take care of her personal affairs. preferred pharmacy [facility] at [address] [place] [address], [place] [id number] discharge medication sent electronically as Levaquin 750 mg daily for 5 more days and furosemide 40 mg BID for 5 days; and prednisone as 40 mg daily for 3 days and then as 20 mg daily for 3 days; metoprolol succinate 25 mg daily for 30 days Patient advised to follow with primary care doctor for repeat bloodwork and Chest X ray primary care doctor appointment 02/15/2020 9:00 AM Provider Irvin Iverson MD Department [facility] Patient advised to make follow up clinic appointment with [facility] (6) Elevated troponin: -likely demand ischemia related to her acute decompensation. -echocardiogram with normal ejection fraction -consider addition of low-dose beta-blockade as per [facility] and started metoprolol succinate 25 mg daily started on 02/10/2020 (7) Coronary artery disease: -History of stent in 2017 to ramus and left circumflex -Continue home dose aspirin, Plavix, statin, lisinopril (8) Diabetes mellitus, type 2: -Hgb A1c 6.9 10/2019 -Lantus and NovoLog per protocol while hospitalized -patient may return to home dose type 2 diabetes mellitus medications on discharge (9) History of drug abuse: -On Suboxone, will continue (10) Seizure disorder: -Stable, No recent seizures -Continue Keppra (11) DVT prophylaxis: -SQ Lovenox while in the hospital Admission and Anticipated Discharge Date Admission Date: February 09, 2020 Subjective Patient is stable and on room air, patient saturating well at rest. However, on 2 step test, patient requires 2 liters/min with ambulation. Ideally, hospitalist would keep patient in the hospital for further inpatient treatment, however, hospital discharge on 02/11/2020 is being expedited because patient reports that her landlord is demanding a meeting in person and patient is in a hurry to return to her current housing for this meeting. store manager requested to arrange patient to have oxygen tank and taxi voucher so that patient can be discharged from hospital so patient can take care of her personal affairs. Review of Systems Review of Systems: All systems reviewed & are unremarkable except as noted in Subjective Physical Exam Constitutional: cooperative Eyes: PERRL, conjunctivae normal, anicteric sclerae EOM intact bilaterally ENMT: external ear and nose normal, oropharynx normal Neck: normal visual inspection Respiratory: normal respiratory effort Cardiovascular: Rate/Rhythm: regular rhythm Gastrointestinal (Abdomen): normal bowel sounds, soft, nontender, no hepatosplenomegaly Musculoskeletal: Head/Neck/Chest: normocephalic and head atraumatic Neurologic: PERRL, EOMI, accommodation nl, no face palsy, no dysarthria CN's II-XI intact bilaterally Psychiatric: A+Ox3, euthymic affect Results & Data Results & Data ([facility]) Vital Signs (Past 12 Hours) Vital Signs Temp Pulse Pulse Pulse Pulse Pulse Pulse 02/11/20 09:07 108 H 111 H 102 H 103 H 02/11/20 08:00 37.1 C 103 H 116 H 02/11/20 07:25 101 H 02/11/20 04:44 36.6 C 103 H 02/11/20 03:33 88 02/10/20 23:57 36.5 C 124 H 02/10/20 23:21 96 H Resp Resp Resp Resp Resp BP BP 02/11/20 09:07 20 22 20 18 02/11/20 08:00 20 119/61 02/11/20 07:25 20 02/11/20 04:44 16 130/77 02/11/20 03:33 18 02/10/20 23:57 18 124/67 02/10/20 23:21 20 Pulse Ox Pulse Ox Pulse Ox Pulse Ox Pulse Ox 02/11/20 09:07 91 86 L 92 94 02/11/20 08:00 93 02/11/20 07:25 90 02/11/20 04:44 95 02/11/20 03:33 90 02/10/20 23:57 95 02/10/20 23:21 90 (1) Diabetes mellitus, type 2 Diabetes mellitus complication status: with unspecified complications 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
--- NOTE | 2020-02-11 10:09 | Discharge Summary ---
Date of Service February 11, 2020 Admission HPI Per Admitting Provider 40-year-old female with PMH DM type II, CAD s/p stenting, aortic stenosis, HTN, seizure disorder, asthma, and other problems listed below who presents to the ED for evaluation of shortness of breath. Patient was evaluated by PCP on 02/04 for cough and congestion. COVID-19 testing at that time was negative. Patient was started on Augmentin and prednisone. Patient reports no improvement in her symptoms. She reports shortness of breath with minimal exertion. She has had a cough productive for brown sputum. She denies fevers and chills. She reports some mild orthopnea, no lower extremity edema. She does not weigh herself on a day-to-day basis. She denies chest pain. No lightheadedness, dizziness, diaphoresis, syncopal events. Denies abdominal pain, nausea, vomiting, diarrhea. No urinary symptoms. In the ED, patient was hypoxic on room air at 83%. She is currently saturating well on 4 L of oxygen via nasal cannula. Respiratory panel is positive for rhinovirus. CXR suggest CHF/pneumonia. Tro ponin 0 0.875, EKG without acute ST changes. proBNP 3405. Blood pressure is stable. She is mildly tachycardic. She received nebulizer treatment, full dose aspirin, Lasix 40 mg IV, Levaquin 750 mg IV, Solu-Medrol 125 mg IV. Principal Diagnosis Acute respiratory failure with hypoxia Acute bronchitis due to Rhinovirus Sepsis Asthma exacerbation Acute on chronic diastolic CHF (congestive heart failure) History of drug abuse and currently on Suboxone History of Seizure disorder Discharge Exam Constitutional cooperative Eyes PERRL, conjunctivae normal, anicteric sclerae EOM intact bilaterally ENMT external ear and nose normal, oropharynx normal Neck normal visual inspection Respiratory normal respiratory effort Cardiovascular Rate/Rhythm: regular rhythm Gastrointestinal (Abdomen) normal bowel sounds, soft, nontender, no hepatosplenomegaly Musculoskeletal Head/Neck/Chest: normocephalic and head atraumatic Neurologic PERRL, EOMI, accommodation nl, no face palsy, no dysarthria CN's II-XI intact bilaterally Psychiatric A+Ox3, euthymic affect Discharge Data Allergies Allergy/AdvReac Type Severity Reaction Status Date / Time lidocaine Allergy Intermediate HIVES Verified 02/09/20 08:41 procaine Allergy Intermediate HIVES Verified 02/09/20 08:41 Penicillins Allergy Mild HAD NO Verified 02/09/20 08:41 PROBLEM WITH ZOSYN strawberry Allergy Mild HIVES Verified 02/09/20 08:41 cephalexin AdvReac Intermediate YEAST Verified 02/09/20 08:41 INFECTIONS egg AdvReac Intermediate GI UPSET Verified 02/09/20 08:41 tramadol AdvReac Intermediate SEIZURES Verified 02/09/20 08:41 azithromycin AdvReac Mild STOMACH Verified 02/09/20 08:41 PAIN Consultations 02/09/20 11:07 ED Decision to Admit Stat 02/09/20 12:48 Consult Cardiology Routine Ordered Studies 02/09/20 11:17 CT angio chest PE protocol Urgent Hospital Course (1) Acute respiratory failure with hypoxia: (2) Acute bronchitis due to Rhinovirus: (3) Sepsis: (4) Asthma exacerbation: (5) Acute on chronic diastolic CHF (congestive heart failure): -Patient presenting from home with reports of cough and shortness of breath x1 week. Placed on Augmentin and prednisone by PCP on 02/05/2020 -Upon arrival to ED on 02/10/2020, saturating 83% on room air and then required 4L/min oxygen via nasal cannula; COVID-19 testing on 02/04 negative, respiratory panel today negative for COVID-19; respiratory panel however positive for rhinovirus -CTA chest on 02/10/[address] scan 1. No pulmonary emboli identified. 2. Interlobular septal thickening which favors interstitial pulmonary edema. Additional extensive bilateral airspace opacities within the lungs are nonspecific although favor alveolar edema. An infectious process could appear similar. Small right pleural effusion. 3. Moderate mediastinal and bilateral hilar lymphadenopathy which is nonspecific however similar findings were shown on CT of August 30, 2017 and then subsequently resolved. This lymphadenopathy may be reactive although a lymphoproliferative process cannot be excluded. Short-term follow-up chest CT in 3 months is recommended. 4. Mild cardiomegaly. Moderate coronary artery calcification. -Patient met sepsis criteria with WBC 21K and tachycardia. Noted that patient was recently on prednisone so that may be contributing to the leukocytosis. -In the ED, patient was given solumedrol 125 mg IV x 1, Levaquin 750 mg IV x 1, and Lasix 40 mg IV x 1 -as of 02/10/2020, patient on room air in the afternoon. WBC downtrended to 14K. Continue the Levaquin daily, taper down the IV solumedrol dosing, monitor off IV Lasix and instead do Lasix BID orally -from cardiology point of view that some contribution for acute on chronic diastolic CHF (congestive heart failure), decompensation may be related to dietary indiscretion with salt, place on low salt diet -02/11/2020 updates Patient is stable and on room air, patient saturating well at rest. However, on 2 step test, patient requires 2 liters/min with ambulation. Ideally, hospitalist would keep patient in the hospital for further inpatient treatment, however, hospital discharge on 02/11/2020 is being expedited because patient reports that her landlord is demanding a meeting in person and patient is in a hurry to return to her current housing for this meeting. manager roofing requested to arrange patient to have oxygen tank and taxi voucher so that patient can be discharged from hospital so patient can take care of her personal affairs. preferred pharmacy [facility] at [address] [place] [address], [place] [address] discharge medication sent electronically as Levaquin 750 mg daily for 5 more days and furosemide 40 mg BID for 5 days; and prednisone as 40 mg daily for 3 days and then as 20 mg daily for 3 days; metoprolol succinate 25 mg daily for 30 days Patient advised to follow with primary care doctor for repeat bloodwork and Chest X ray primary care doctor appointment 02/15/2020 9:00 AM Provider Irvin Iverson MD Department Family Practice [facility] Patient advised to make follow up clinic appointment with Roya Patel Cardio logy (6) Elevated troponin: -likely demand ischemia related to her acute decompensation. -echocardiogram with normal ejection fraction -consider addition of low-dose beta-blockade as per Roya Patel cardiology and started metoprolol succinate 25 mg daily started on 02/10/2020 (7) Coronary artery disease: -History of stent in 2017 to ramus and left circumflex -Continue home dose aspirin, Plavix, statin, lisinopril (8) Diabetes mellitus, type 2: -Hgb A1c 6.9 10/2019 -Lantus and NovoLog per protocol while hospitalized -patient may return to home dose type 2 diabetes mellitus medications on discharge (9) History of drug abuse: -On Suboxone, will continue (10) Seizure disorder: -Stable, No recent seizures -Continue Keppra (11) DVT prophylaxis: -SQ Lovenox while in the hospital Total Time Total Time Spent Total Time Spent (In Minutes): 40 minutes Total Time Includes: Examination of the Patient, Discharge Planning, Medication Reconciliation and Communication With Other Providers Discharge Plan Discharge Items Patient Disposition: Home - Self-Care Reason For Visit: Resp distress Hx COPD Discharge Diagnosis: Acute respiratory failure with hypoxia Acute bronchitis due to Rhinovirus Sepsis Asthma exacerbation Acute on chronic diastolic CHF (congestive heart failure) History of drug abuse and currently on Suboxone History of Seizure disorder Condition on Discharge: Fair Activity: Per Instructions section Non-emergency contact: Primary Care Provider and Factorer Call non-emergency contact if: you have any medication questions Follow-up/Referrals: Irvin Iverson MD [Primary Care Provider] - Diet: Carb Consistent or DM2 and Low Sodium (2gm) Addtl Attending Provider Instructions: Patient is stable and on room air, patient saturating well at rest. However, on 2 step test, patient requires 2 liters/min with ambulation. Ideally, hospitalist would keep patient in the hospital for further inpatient treatment, however, hospital discharge on 02/11/2020 is being expedited because patient reports that her landlord is demanding a meeting in person and patient is in a hurry to return to her current housing for this meeting. manager roofing requested to arrange patient to have oxygen tank and taxi voucher so that patient can be discharged from hospital so patient can take care of her personal affairs. preferred pharmacy [facility] at [address] [place] [address], [place] [address] discharge medication sent electronically as Levaquin 750 mg daily for 5 more days and furosemide 40 mg BID for 5 days; and prednisone as 40 mg daily for 3 days and then as 20 mg daily for 3 days; metoprolol succinate 25 mg daily for 30 days Patient advised to follow with primary care doctor for repeat bloodwork and Chest X ray primary care doctor appointment 02/15/2020 9:00 AM Provider Irvin Iverson MD Department Family Practice [facility] Patient advised to make follow up clinic appointment with Roya Patel Cardiology admission CT scan 1. No pulmonary emboli identified. 2. Interlobular septal thickening which favors interstitial pulmonary edema. Additional extensive bilateral airspace opacities within the lungs are nonspecific although favor alveolar edema. An infectious process could appear similar. Small right pleural effusion. 3. Moderate mediastinal and bilateral hilar lymphadenopathy which is nonspecific however similar findings were shown on CT of August 30, 2017 and then subsequently resolved. This lymphadenopathy may be reactive although a lymphoproliferative process cannot be excluded. Short-term follow-up chest CT in 3 months is recommended. 4. Mild cardiomegaly. Moderate coronary artery calcification. 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 * Use the same scale. * Wear the same amount of clothing. * Write your weight down on your chart. * Call your doctor if you gain more than 2-3 pounds in 1-2 days. MEDICATIONS * Use this discharge instruction sheet for instructions. * Take your medications at the time your doctor ordered. * Do not skip a dose of your medicines. * If you miss a dose of medicine, take as soon as possible, but DO NOT DOUBLE A DOSE. * Read your medicine information when you get home. * Know all of the side effects of your medicine. * Call your doctor's office if you have any side effects. * Be sure all of your doctors know what medicine and herbs you take (including cold, flu, and herbal medicine). * Pain Medicine: If you do not get relief from your pain, please call your doctor for help. Take the following with you to your follow-up doctor appointments: * Weight Chart * Medication List * List of questions Do not drink excessive alcohol, beer or wine. Pending Studies at Discharge: No Stand-Alone Forms: My [place], Smoking Cessation Medications and DC Order Prescriptions: New furosemide 40 mg Tablet 40 mg PO BID17 5 Days Qty: 5 RF: 0 metoprolol succinate 25 mg Tablet Extended Release 24 Hr 25 mg PO QAM 30 Days Qty: 30 RF: 0 prednisone 20 mg tablet 40 mg PO UD 6 Days Qty: 9 RF: 0 levofloxacin 750 mg tablet 750 mg PO DAILY 5 Days Qty: 5 RF: 0 Continued levetiracetam [Keppra] 500 mg Tablet 500 mg PO BID RF: 0 trazodone 100 mg tablet 250 mg PO HS RF: 0 escitalopram oxalate [Lexapro] 20 mg tablet 20 mg PO QAM RF: 0 metformin 1,000 mg Tablet 1,000 mg PO BID RF: 0 atorvastatin 80 mg Tablet 80 mg PO HS RF: 0 Lantus Solostar U-100 Insulin 100 unit/mL (3 mL) insulin pen 10 unit SUBCUT HS RF: 0 Victoza 2-Zac 0.6 mg/0.1 mL (18 mg/3 mL) pen injector 1.2 mg SUBCUT QAM RF: 0 albuterol sulfate 2.5 mg /3 mL (0.083 %) solution for nebulization 2.5 mg inhalation Q4 PRN (Reason: Shortness Of Breath Or Wheezing) RF: 0 clopidogrel [Plavix] 75 mg tablet 75 mg PO QAM RF: 0 potassium chloride [Klor-Con M20] 20 mEq tablet,ER particles/crystals 20 meq PO QAM RF: 0 meclizine 25 mg tablet 25 mg PO TID PRN (Reason: dizzyness) RF: 0 nitroglycerin [Nitrostat] 0.4 mg Tablet, Sublingual 0.4 mg sublingual UD PRN (Reason: Chest Pain) RF: 0 albuterol sulfate 90 mcg/actuation HFA aerosol inhaler 2 puff INHALATION Q4 PRN (Reason: Shortness Of Breath Or Wheezing) RF: 0 buspirone 15 mg tablet 15 mg PO BID RF: 0 medroxyprogesterone [Depo-Provera] 150 mg/mL Syringe 150 mg IM Q3M RF: 0 buprenorphine-naloxone [Suboxone] 8-2 mg film 0.5 film sublingual TID RF: 0 prednisone 20 mg tablet 40 mg PO DAILY RF: 0 ferrous sulfate 325 mg (65 mg iron) Tablet 325 mg PO DAILY RF: 0 esomeprazole magnesium 40 mg capsule,delayed release(DR/EC) 40 mg PO DAILY RF: 0 gabapentin 300 mg capsule 300 mg PO TID RF: 0 Flovent HFA 220 mcg/actuation HFA aerosol inhaler 2 puff INHALATION BID RF: 0 aspirin 81 mg tablet,delayed release (DR/EC) 81 mg PO QAM RF: 0 lisinopril 5 mg Tablet 5 mg PO QAM RF: 0 Discontinued furosemide [Lasix] 20 mg tablet 20 mg PO QAM RF: 0 meloxicam 15 mg tablet 15 mg PO DAILY RF: 0 amoxicillin-pot clavulanate 875-125 mg tablet 1 tab PO BID RF: 0 Discharge Orders: Discharge Order (Routine); Ordered 02/11/20 Ordered By: Orlin Green Admission Data Admit Date/Time: 02/09/20 10:52 Attending Provider: Orlin Green Admit Provider: Orlin Green Primary Care Provider: Irvin Iverson Other Providers: Orlin Green ; Carlos Goodman
--- NOTE | 2020-02-11 23:39 | Electrocardiogram Report ---
Test Reason : Blood Pressure : / mmHG Vent. Rate : 099 BPM Atrial Rate : 099 BPM P-R Int : 122 ms QRS Dur : 090 ms QT Int : 350 ms P-R-T Axes : 068 063 -26 degrees QTc Int : 449 ms Normal sinus rhythm Nonspecific ST abnormality Abnormal ECG When compared with ECG of 10-FEB-2020 07:33, No significant change was found Confirmed by Mohit Girard ([id number]) on 02/11/2020 11:39:26 PM Referred By: REFERRED SELF Confirmed By:Mohit Girard
== END 2020-02-11 11:15 | disposition home or self-care (01) | DRG 871 ==
LOC: ED 07:41 → 1E 10:52

== ENCOUNTER 2020-02-22 12:57 | Inpatient (IN) ==
--- NOTE | 2020-02-22 13:02 | Emergency Department Note ---
Impression & Plan Atypical chest pain, Acute electrocardiogram changes, Hypocalcemia, Encounter for smoking cessation counseling ED Provider Note NAME: ROGER WEEKS AGE: 40 SEX: F : 1980 ARRIVES VIA: Ambulance INFORMANT: Patient, ED PROVIDER(S): Merlin Wells MD Chief Complaint: Chest pain HPI: Patient does present with concern for chest pains. The patient states that this did begin this morning. The patient has had a mild nonproductive cough and is a smoker. Known history of aortic stenosis as well as CAD status post stenting COPD. Patient does wear 2 L of at home oxygen was noted to be not hypoxic on room air. Patient states that the chest pain is left-sided with radiation to the left arm. Patient has had some unrelated back pain. The patient denies any fevers, chills. The patient has had nausea but no vomiting. The patient states slightly decreased bowel movements but is passing gas. The patient does use Suboxone. Patient was recently admitted back on the and discharged on the with concern for CHF versus asthma exacerbation. The patient did have a CT of the chest that time it did show lymphadenopathy is negative for PE. Patient denies any lower extremity swelling but does have prior history of DVT in the left lower extremity currently not on blood thinning medications but does take aspirin Plavix ROS: See HPI for pertinent positives and negatives. A total of 10 systems were reviewed and otherwise negative. Past medical history: See below Surgical history: See below Social history: See below Physical Exam: GENERAL: Appears older than stated age, nasal cannula in place and wearing a mask. EYE EXAM: Normal conjunctiva. PERRL, no anisocoria and EOM's grossly intact w/o pain. NECK: Supple, no nuchal rigidity, no adenopathy, non-tender. No signs of meningismus. LUNGS: Clear to auscultation. Normal chest wall mechanics. HEART: NSR, systolic ejection murmur noted. ABDOMEN: Abdomen soft, non-tender, normo-active bowel sounds, no masses, no rebound or guarding. BACK: No CVA TTP. SKIN: No rashes and no bruising. UPPER EXTREMITIES: Upper extremities are grossly normal. LOWER EXTREMITIES: Grossly normal, no edema. Negative Homans' sign bilaterally. NEURO EXAM: A&O x3, cranial nerves II-XII grossly intact, normal speech, moves all 4 extremities on command w/o issue. Differential diagnoses: Cardiac ischemia, aortic dissection, pulmonary embolism, pneumothorax, pneumonia, pericarditis, myocarditis, esophageal rupture, GERD, cholecystitis, pancreatitis, musculoskeletal, as well as other pathologies. Course: Patient was seen and evaluated the bedside. Full history physical exam was performed. EKG: Indication: Chest pain Normal sinus rhythm, rate 89, normal intervals, normal axis, T wave inversion inferiorly and laterally. Patient does have new T wave changes compared to February 11, 2020. Imaging Studies: Radiology results as stated below per my review in the radiologist's interpretation: XR chest 1V portable HISTORY: 40 years-old Female Chest Pain . Acute chest pain with shortness of breath COMPARISON: Chest radiograph and CTA chest 02/09/2020 TECHNIQUE: Upright AP view of the chest FINDINGS: Cardiac silhouette is mildly enlarged. No pneumothorax. No large pleural effusion. There is moderately improved aeration of the lungs with persistent pulmonary vascular congestion and interstitial opacities. Degenerative changes of the shoulders and spine. IMPRESSION: Cardiomegaly with moderately improved pulmonary edema. ACT 112: Negative or not required by law. The above report was generated using voice recognition software. It may contain grammatical, syntax or spelling errors. Electronically signed by: Isidro Eli M.D. 02/22/2020 1:35 PM Dictated: 02/22/20 1334 Transcribed: 02/22/20 1334 Cardiac monitoring: An order was placed for continuous cardiac monitoring. The monitor shows a rate of 89 with sinus rhythm. MDM: Patient does present with concern for chest pains. Chest x-ray shows improved pulmonary edema. Patient has a mild white count of 14. Patient does have chronic and stable anemia. The patient's kidney function is unremarkable. Very mild hypercalcemia. Troponin is nondetectable. The patient's EKG changes and improvement with nitro and aspirin with known history of CAD I did speak with the on-call hospitalist Roxi Gallardo PA-C. The patient was being admitted under Dr. More [facility]. I counseled patient on smoking cessation for 3 minutes. Treatment options discussed and resources provided. Patient was receptive. Past Med/Surg History Medical History Asthma Chronic diastolic CHF (congestive heart failure) Coronary artery disease Depression Diabetes mellitus, type 2 Dyslipidemia GERD (gastroesophageal reflux disease) Hepatitis C "Antibiotic screen positive, quantitative RNA positive 08/30/17" Hepatosplenomegaly History of drug abuse History of DVT (deep vein thrombosis) History of renal calculi Hypertension Seizure disorder Surgical History History of cardiac cath 2017- 1 ROJAS to ramus, 2 ROJAS to L circumflex. 40-50% plaque to LAD 2018- distal disease (80%) within PDA History of carpal tunnel surgery History of lumbar spinal fusion Hx of tonsillectomy Status post cholecystectomy Family History Other Diabetes Heart disease Hypertension Kidney stones Seizures Social History Smoking Status: Current every day smoker Tobacco Type: Cigarettes Cigarettes Per Day: 10; Second Hand Exposure: No; Hx Alcohol Use: No Hx Substance Use: Yes Last Used Substance: Unknown Last Used Substance Other:: 3 weeks ago. Last used heroin 1.5 years ago Substance Use Type Other:: 1.5 years ago Preferred Language: Samoan Communication Ability: Effective Visual Impairment: No Limitations Hearing Ability: Normal Clinical Document Improvement Educator Required: No Beliefs That Will Affect Care: None marital status: Single Current Living Situation: Other Current Living Situation Comment: lives with roommates Feels Safe at Home: Yes Assistive Devices: Denture - Upper and Denture - Lower Allergies Allergies Allergy/AdvReac Type Severity Reaction Status Date / Time lidocaine Allergy Intermediate HIVES Verified 02/22/20 14:31 procaine Allergy Intermediate HIVES Verified 02/22/20 14:31 Penicillins Allergy Mild HAD NO Verified 02/22/20 14:31 PROBLEM WITH ZOSYN strawberry Allergy Mild HIVES Verified 02/22/20 14:31 cephalexin AdvReac Intermediate YEAST Verified 02/22/20 14:31 INFECTIONS egg AdvReac Intermediate GI UPSET Verified 02/22/20 14:31 tramadol AdvReac Intermediate SEIZURES Verified 02/22/20 14:31 azithromycin AdvReac Mild STOMACH Verified 02/22/20 14:31 PAIN Home Meds Home Medications Medication Instructions Recorded Confirmed escitalopram oxalate [Lexapro] 20 mg PO QAM 05/30/18 02/22/20 levetiracetam [Keppra] 500 mg PO BID 05/30/18 02/22/20 trazodone 250 mg PO HS 05/30/18 02/22/20 aspirin 81 mg PO QAM 09/08/18 02/22/20 lisinopril 5 mg PO QAM 09/08/18 02/22/20 metformin 1,000 mg PO BID 12/19/18 02/22/20 atorvastatin 80 mg PO HS 12/28/18 02/22/20 Lantus Solostar U-100 Insulin 10 unit SUBCUT HS 05/20/19 02/22/20 Victoza 2-Zac 1.2 mg SUBCUT QAM 06/08/19 02/22/20 albuterol sulfate 2 puff INHALATION Q4 PRN 11/06/19 02/22/20 albuterol sulfate 2.5 mg INHALATION Q4 PRN 11/06/19 02/22/20 buprenorphine-naloxone [Suboxone] 0.5 film SUBLINGUAL TID 11/06/19 02/22/20 buspirone 15 mg PO BID 11/06/19 02/22/20 clopidogrel [Plavix] 75 mg PO QAM 11/06/19 02/22/20 medroxyprogesterone [Depo-Provera] 150 mg IM Q3M 11/06/19 02/22/20 nitroglycerin [Nitrostat] 0.4 mg SUBLINGUAL UD PRN 11/06/19 02/22/20 potassium chloride [Klor-Con M20] 20 meq PO QPM 11/06/19 02/22/20 esomeprazole magnesium 40 mg PO DAILY 02/09/20 02/22/20 ferrous sulfate 325 mg PO DAILY 02/09/20 02/22/20 gabapentin 300 mg PO TID 02/09/20 02/22/20 Previous Rx's Medication Instructions Recorded metoprolol succinate 25 mg PO QAM 30 Days #30 tab 02/11/20 Results & Data (ED) Vital Signs Vital Signs - 24 hr 02/22/20 13:02 02/22/20 13:22 Temperature 36.9 C Temperature Source Oral Pulse Rate 91 H Respiratory Rate 18 Blood Pressure 116/49 L Blood Pressure Mean 71 Pulse Oximetry 97 100 Oxygen Delivery Method Room Air Nasal Cannula Oxygen Flow Rate 2 Sepsis Recent Fever Within 48 Hours No Sepsis New/Unexplained Change in Mental Status N/A Sepsis Action Taken by Nursing No Action Required Home Medications Current Medication List: was personally reviewed by me Laboratory Data Attestation: I reviewed the patient's lab results. Result diagrams: 02/22/20 13:10 02/22/20 13:10 Lab Results 02/22/20 02/22/20 02/22/20 Range/Units 13:10 13:10 13:10 WBC 14.53 H (4.8-10.8) K/uL RBC 3.85 L (4.2-5.4) M/uL Hgb 9.5 L (12.0-16.0) g/dL Hct 30.6 L (37-47) % MCV 79.5 L (80-100) fL MCH 24.7 L (25-34) pg MCHC 31.0 L (32-36) g/dL RDW Std Deviation 50.7 H (36.4-46.3) fL RDW Coeff of Hannah 17.6 H (11.5-14.5) % Plt Count 382 (130-400) K/uL MPV 9.7 (7.4-10.4) fL Immature Gran % (Auto) 0.5 % Neut % (Auto) 65.3 % Lymph % (Auto) 25.1 % [place] % (Auto) 6.0 % Eos % (Auto) 3.0 % Baso % (Auto) 0.1 % Neut # (Auto) 9.49 H (1.4-6.5) K/uL Lymph # (Auto) 3.65 H (1.2-3.4) K/uL [place] # (Auto) 0.87 H (0.11-0.59) K/uL Eos # (Auto) 0.43 (0-0.5) K/uL Baso # (Auto) 0.02 (0-0.2) K/uL Immature Gran # (Auto) 0.07 H (0.00-0.02) K/uL PT 11.0 (9.0-12.0) Seconds INR 1.0 (0.9-1.1) APTT 25.1 (21.0-31.0) Seconds PTT Ratio 0.9 Sodium 139 (136-145) mmol/L Potassium 3.5 (3.5-5.1) mmol/L Chloride 109 H (98-107) mmol/L Carbon Dioxide 21 (21-32) mmol/L Anion Gap 8.0 (3-11) BUN 14 (7-18) mg/dl Creatinine 1.03 (0.6-1.2) mg/dl Est Cr Clr Drug Dosing 73.3 ml/min Est GFR ( Amer) 77.6 Est GFR (Non-Af Amer) 67.0 BUN/Creatinine Ratio 13.9 (10-20) Glucose 116 H (70-99) mg/dl Calcium 8.1 L (8.5-10.1) mg/dl Total Bilirubin 0.3 (0.2-1) mg/dl AST 19 (15-37) U/L ALT 26 (12-78) U/L Alkaline Phosphatase 97 (45-117) U/L Troponin I < 0.015 (0-0.045) ng/ml Total Protein 6.5 (6.4-8.2) gm/dl Albumin 2.7 L (3.4-5.0) gm/dl Globulin 3.8 (2.5-4.0) gm/dl Albumin/Globulin Ratio 0.7 L (0.9-2) Lipase 123 (73-393) U/L Administered Medications Nitroglycerin (Nitroglycerin Sl 0.4 Mg/Tab Tab) 0.4 mg SL UD PRN PRN Reason: Chest Pain Stop: 03/23/20 13:07 Last Admin: 02/22/20 13:29 Dose: 0.4 mg Documented by: [id number] Discontinued Medications Ondansetron HCl (Ondansetron Inj 2 Mg/Ml 2 Ml Vial) 4 mg IV NOW STA Stop: 02/22/20 13:09 Last Admin: 02/22/20 13:28 Dose: 4 mg Documented by: [id number] Discharge Plan Visit Data Chief Complaint: Chest Pain ED Provider: Merlin Wells Discharge Problem: Atypical chest pain, Acute electrocardiogram changes, Hypocalcemia, Encounter for smoking cessation counseling Forms Stand Alone Forms: [facility] Prescriptions Prescriptions: No Action levetiracetam [Keppra] 500 mg Tablet 500 mg PO BID RF: 0 trazodone 100 mg tablet 250 mg PO HS RF: 0 escitalopram oxalate [Lexapro] 20 mg tablet 20 mg PO QAM RF: 0 metformin 1,000 mg Tablet 1,000 mg PO BID RF: 0 atorvastatin 80 mg Tablet 80 mg PO HS RF: 0 Lantus Solostar U-100 Insulin 100 unit/mL (3 mL) insulin pen 10 unit SUBCUT HS RF: 0 Victoza 2-Zac 0.6 mg/0.1 mL (18 mg/3 mL) pen injector 1.2 mg SUBCUT QAM RF: 0 albuterol sulfate 2.5 mg /3 mL (0.083 %) solution for nebulization 2.5 mg inhalation Q4 PRN (Reason: Shortness Of Breath Or Wheezing) RF: 0 clopidogrel [Plavix] 75 mg tablet 75 mg PO QAM RF: 0 potassium chloride [Klor-Con M20] 20 mEq tablet,ER particles/crystals 20 meq PO QPM RF: 0 nitroglycerin [Nitrostat] 0.4 mg Tablet, Sublingual 0.4 mg sublingual UD PRN (Reason: Chest Pain) RF: 0 albuterol sulfate 90 mcg/actuation HFA aerosol inhaler 2 puff INHALATION Q4 PRN (Reason: Shortness Of Breath Or Wheezing) RF: 0 buspirone 15 mg tablet 15 mg PO BID RF: 0 medroxyprogesterone [Depo-Provera] 150 mg/mL Syringe 150 mg IM Q3M RF: 0 buprenorphine-naloxone [Suboxone] 8-2 mg film 0.5 film sublingual TID RF: 0 ferrous sulfate 325 mg (65 mg iron) Tablet 325 mg PO DAILY RF: 0 esomeprazole magnesium 40 mg capsule,delayed release(DR/EC) 40 mg PO DAILY RF: 0 gabapentin 300 mg capsule 300 mg PO TID RF: 0 metoprolol succinate 25 mg Tablet Extended Release 24 Hr 25 mg PO QAM 30 Days Qty: 30 RF: 0 aspirin 81 mg tablet,delayed release (DR/EC) 81 mg PO QAM RF: 0 lisinopril 5 mg Tablet 5 mg PO QAM RF: 0
[2020-02-22] MEDS ORDERED: ONDANSETRON INJ 2 MG/ML 2 ML VIAL IV STA (13:08)
[2020-02-22] MEDS ORDERED: NITROGLYCERIN SL 0.4 MG/TAB TAB SL PRN ×2 (13:08→17:35)
[2020-02-22 13:23] LABS: Basophils # (auto) 0.02 K/uL (0-0.2); Basophils % (auto) 0.1 %; Eosinophils # (auto) 0.43 K/uL (0-0.5); Hematocrit (blood only) 30.6 % (37-47); Hemoglobin 9.5 g/dL (12.0-16.0); Immature Granulocytes # (auto) 0.07 K/uL (0.00-0.02); Immature Granulocytes % (auto) 0.5 %; Lymphocytes # (auto) 3.65 K/uL (1.2-3.4); Lymphocytes % (auto) 25.1 %; Mean Corpuscular Hemoglobin 24.7 pg (25-34); Mean Corpuscular Volume 79.5 fL (80-100); Mean Platelet Volume 9.7 fL (7.4-10.4); Monocytes # (auto) 0.87 K/uL (0.11-0.59); Neutrophils # (auto) 9.49 K/uL (1.4-6.5); Neutrophils % (auto) 65.3 %; Platelet Count 382 K/uL (130-400); RDW Coefficient of Variation 17.6 % (11.5-14.5); RDW Standard Deviation 50.7 fL (36.4-46.3); Red Blood Count 3.85 M/uL (4.2-5.4); White Blood Count 14.53 K/uL (4.8-10.8)
[2020-02-22 13:33] LABS: Partial Thromboplastin Ratio 0.9; Partial Thromboplastin Time 25.1 Seconds (21.0-31.0)
--- NOTE | 2020-02-22 13:37 | XRay Report ---
XR chest 1V portable HISTORY: 40 years-old Female Chest Pain . Acute chest pain with shortness of breath COMPARISON: Chest radiograph and CTA chest 02/09/2020 TECHNIQUE: Upright AP view of the chest FINDINGS: Cardiac silhouette is mildly enlarged. No pneumothorax. No large pleural effusion. There is moderatel y improved aeration of the lungs with persistent pulmonary vascular congestion and interstitial opaci ties. Degenerative changes of the shoulders and spine. IMPRESSION: Cardiomegaly with moderately improved pulmonary edema. ACT 112: Negative or not required by law. The above report was generated using voice recognition software. It may contain grammatical, syntax o r spelling errors. Electronically signed by: Isidro Eli M.D. 02/22/2020 1:35 PM
[2020-02-22 13:39] LABS: Alanine Aminotransferase 26 U/L (12-78); Albumin Level 2.7 gm/dl (3.4-5.0); Aspartate Aminotransferase 19 U/L (15-37); BUN Creatinine Ratio 13.9 (10-20); Blood Urea Nitrogen 14 mg/dl (7-18); Calcium 8.1 mg/dl (8.5-10.1); Carbon Dioxide 21 mmol/L (21-32); Chloride 109 mmol/L (98-107); Creatinine Clr Calc Pharmacy 73.3 ml/min; Est GFR (African American) 77.6; Glucose 116 mg/dl (70-99); Lipase 123 U/L (73-393); Potassium 3.5 mmol/L (3.5-5.1); Sodium 139 mmol/L (136-145)
[2020-02-22 13:42] LABS: Albumin Globulin Ratio 0.7 (0.9-2); Alkaline Phosphatase 97 U/L (45-117); Bilirubin,Total 0.3 mg/dl (0.2-1); Globulin 3.8 gm/dl (2.5-4.0); Total Protein 6.5 gm/dl (6.4-8.2); Troponin I < 0.015 ng/ml (0-0.045)
[2020-02-22] MEDS ORDERED: CALCIUM GLUCONATE 10% 1,000 MG in SODIUM CHLORIDE 0.9% 50 ML IV STA (14:04)
[2020-02-22] MEDS ORDERED: POTASSIUM CHLORIDE 20 MEQ TABCR PO STA (14:24)
--- NOTE | 2020-02-22 15:24 | History & Physical Report ---
Date of Service February 22, 2020 Assessment & Plan (1) Atypical chest pain: (2) Acute electrocardiogram changes: This is a 40-year-old female who has significant past medical history of CAD with history of ROJAS to left circumflex and ramus intermedius 10/2016, HTN, HLD, mild aortic stenosis and aortic insufficiency, insulin-dependent T2DM, COPD, seizure disorder, hepatitis C, GERD, history of IVDA on Suboxone, tobacco abuse who presents to ED secondary to chest pain and shortness of breath that started at approximately 12 PM. In ED she remained hemodynamically stable. She was mildly tachycardic. EKG revealed new T wave inversions inferior laterally compared to prior EKG on 02/10. Lab work notable for WBC 14.5 3K, H&H 9.5 and 30.6, platelet 382, potassium 3.5, BUN 14, creatinine 1.03, mag 1.4, glucose 116, albumin 2.7. Chest x-ray with cardiomegaly with moderately improved pulmonary edema. admit to PCU consult cardiology - discussed with Dr. Girard obtain echocardiogram to assess wall motion CTA chest r/o dissection/PE If negative for dissection start Heparin Gtt cycle troponin, ecg continue asa, plavix, statin, metoprolol and lisinopril NPO after midnight give KCL 40meq x 1 now; keep K > 4; Mag > 2.0 (3) Hypomagnesemia: mag 1.4 give mag sulfate 1g x 2, start oral repletion 400mg mag ox daily repeat mag @ 6pm with next trop (4) Coronary artery disease: hx of ROJAS to Lcx and ramus intermedius 10/[address] [facility] cardiology, but now established with [facility] Continue aspirin, Plavix, statin, Toprol and lisinopril Further plan regarding ischemic work-up as above (5) Chronic heart failure with preserved ejection fraction (HFpEF): recent echo 01/2020 EF 55-60% with mild aortic valve stenosis/aortic regurg euvolemic continue metoprolol and lisinopril (6) Diabetes mellitus, type 2: Last A1c 02/10/2020 6.3 Lantus/NovoLog per protocol Hold Victoza, Metformin and glipizide BSG 116 (7) Hypertension: Blood pressure controlled Continue metoprolol, lisinopril (8) Dyslipidemia: Continue statin (9) Asthma: recent hospitalization secondary to asthma exacerbation secondary to rhinovirus Completed prednisone course as well as antibiotic Levaquin Continue albuterol nebulizer treatment as needed (10) GERD (gastroesophageal reflux disease): continue PPI recommend daily mag supplementation (11) Hx of drug abuse: continue suboxone therapy (12) DVT prophylaxis: SQ Heparin Disposition: admit to PCU Follow up: PCP Dr. Iverson upon discharge Pt was seen and examined in collaboration with Dr. More, please see addendum History of Present Illness Chief Complaint: Chest pain and shortness of breath that started approximately 12 PM. Primary Care Provider: Irvin Iverson MD This is a 40-year-old female who has significant past medical history of CAD with history of ROJAS to left circumflex and ramus intermedius 10/2016, HTN, HLD, mild aortic stenosis and aortic insufficiency, insulin-dependent T2DM, COPD, seizure disorder, hepatitis C, GERD, history of IVDA on Suboxone, tobacco abuse who presents to ED secondary to chest pain and shortness of breath that started at approximately 12 PM. Of significance patient recently hospitalized 02/08- secondary to acute respiratory failure secondary to bronchitis and rhinovirus. She was further diagnosed with asthma exacerbation and acute on chronic CHF. She was discharged on oral Levaquin as well as steroid taper. She is finished her antibiotic and steroid therapy but continues to use nebulizer approximately 4 times daily. She continues to have dry cough but feels it is improving. She was doing well and overall feels she, "did too much after discharge." She admits the last 2 days to having intermittent substernal chest discomfort. Chest discomfort would come on with rest or minimal exertion. Symptoms would resolve within approximately 5 minutes with rest. Chest pain will be substernal with radiation to the bilateral scapular region. She was walking with her niece today when approximately at 12 PM she got severe, 10/10, substernal chest discomfort that radiated to her bilateral scapular region. She sat down and rested immediately which improved pain. She admits to associated diaphoresis and nausea. She felt similar to the prior time when she required stenting, but back pain was new. Niece called EMS and she received a sublingual nitro and full-strength aspirin. This did improve her symptoms. She also received additional sublingual nitro in ED and her pain is currently 1/10. She is concerned secondary to the back discomfort which is new to her. Otherwise she currently feels comfortable. She currently denies any fever, chills, sweats, lightheadedness, dizziness, shortness breath at rest, cough hemoptysis, nausea, vomiting, abdominal pain, change in bowel or urinary habits. She admits to be compliant with her medications specifically aspirin, Plavix, lisinopril in addition to metoprolol since discharge. In ED she remained hemodynamically stable. She was mildly tachycardic. EKG revealed new T wave inversions inferior laterally compared to prior EKG on 02/10. Lab work notable for WBC 14.5 3K, H&H 9.5 and 30.6, platelet 382, potassium 3.5, BUN 14, creatinine 1.03, mag 1.4, glucose 116, albumin 2.7. Chest x-ray with cardiomegaly with moderately improved pulmonary edema. Allergies Allergy/AdvReac Type Severity Reaction Status Date / Time lidocaine Allergy Intermediate HIVES Verified 02/22/20 14:31 procaine Allergy Intermediate HIVES Verified 02/22/20 14:31 Penicillins Allergy Mild HAD NO Verified 02/22/20 14:31 PROBLEM WITH ZOSYN strawberry Allergy Mild HIVES Verified 02/22/20 14:31 cephalexin AdvReac Intermediate YEAST Verified 02/22/20 14:31 INFECTIONS egg AdvReac Intermediate GI UPSET Verified 02/22/20 14:31 tramadol AdvReac Intermediate SEIZURES Verified 02/22/20 14:31 azithromycin AdvReac Mild STOMACH Verified 02/22/20 14:31 PAIN Home Medications Home Medications Medication Instructions Recorded Confirmed Type escitalopram oxalate [Lexapro] 20 mg PO QAM 05/30/18 02/22/20 History levetiracetam [Keppra] 500 mg PO BID 05/30/18 02/22/20 History trazodone 250 mg PO HS 05/30/18 02/22/20 History aspirin 81 mg PO QAM 09/08/18 02/22/20 History lisinopril 5 mg PO QAM 09/08/18 02/22/20 History metformin 1,000 mg PO BID 12/19/18 02/22/20 History atorvastatin 80 mg PO HS 12/28/18 02/22/20 History Lantus Solostar U-100 Insulin 10 unit SUBCUT HS 05/20/19 02/22/20 History Victoza 2-Zac 1.2 mg SUBCUT QAM 06/08/19 02/22/20 History albuterol sulfate 2 puff INHALATION Q4 PRN 11/06/19 02/22/20 History albuterol sulfate 2.5 mg INHALATION Q4 PRN 11/06/19 02/22/20 History buprenorphine-naloxone [Suboxone] 0.5 film SUBLINGUAL TID 11/06/19 02/22/20 History buspirone 15 mg PO BID 11/06/19 02/22/20 History clopidogrel [Plavix] 75 mg PO QAM 11/06/19 02/22/20 History medroxyprogesterone [Depo-Provera] 150 mg IM Q3M 11/06/19 02/22/20 History nitroglycerin [Nitrostat] 0.4 mg SUBLINGUAL UD PRN 11/06/19 02/22/20 History potassium chloride [Klor-Con M20] 20 meq PO QPM 11/06/19 02/22/20 History esomeprazole magnesium 40 mg PO DAILY 02/09/20 02/22/20 History ferrous sulfate 325 mg PO DAILY 02/09/20 02/22/20 History gabapentin 300 mg PO TID 02/09/20 02/22/20 History metoprolol succinate 25 mg PO QAM 30 Days #30 tab 02/11/20 02/22/20 Rx glipizide 10 mg PO DAILYBD 02/22/20 02/22/20 History Past Med/Surg History Medical History (Updated 02/22/20 @ 16:43 by Mohit Girard MD) Aortic regurgitation Aortic stenosis Asthma Chronic diastolic CHF (congestive heart failure) Coronary artery disease Depression Diabetes mellitus, type 2 Dyslipidemia GERD (gastroesophageal reflux disease) Hepatitis C "Antibiotic screen positive, quantitative RNA positive 08/30/17" Hepatosplenomegaly History of drug abuse History of DVT (deep vein thrombosis) History of renal calculi Hypertension Seizure disorder Surgical History (Updated 02/22/20 @ 16:23 by Mohit Girard MD) History of cardiac cath 2017- 1 ROJAS to ramus, 2 ROJAS to L circumflex. 40-50% plaque to LAD 2018- distal disease (80%) within PDA History of carpal tunnel surgery History of lumbar spinal fusion Hx of tonsillectomy S/P coronary artery stent placement Status post cholecystectomy Family History Other Diabetes Heart disease Hypertension Kidney stones Seizures Social History (Updated 02/22/20 @ 15:27 by Roxi Sweet PA-C) Smoking Status: Current every day smoker Tobacco Type: Cigarettes Cigarettes Per Day: 10; Number of Years Since Quit: 31; Second Hand Exposure: No; Hx Alcohol Use: No Hx Substance Use: Yes Non-Prescribed Medications: Heroin, IV Drugs and Methamphetamines Last Used Substance: Unknown Last Used Substance Other:: 1.5 YEARS AGO Substance Use Type Other:: 1.5 years ago Preferred Language: Colombian Communication Ability: Effective Visual Impairment: No Limitations Hearing Ability: Normal Marketing Sales Representative Required: No Beliefs That Will Affect Care: None marital status: Single Current Living Situation: Other Current Living Situation Comment: LIVES WITH ROOMMATES Feels Safe at Home: Yes Assistive Devices: None Review of Systems Review of Systems: All systems reviewed & are unremarkable except as noted in HPI & below Physical Exam Physical Exam: Constitutional: WD/WN, vitals as above, NAD, sitting up in bed, pleasant, conversing easily Head: Normocephalic, Atraumatic Eyes: PERRL, conjunctivae normal, anicteric sclerae ENMT: external ear and nose normal, oropharynx normal poor dentition Neck: trachea midline, no thyromegaly normal visual inspection Respiratory: normal respiratory effort, lungs clear to auscultation, no wheeze, rales, rhonchi. Normal insp/exp effort, no accessory muscle use Cardiovascular: RRR, 1/6 MAXIME noted RUSB, no edema Vessels: no JVD or carotid bruit Chest: normal inspection of chest, pain not reproducible Abdomen: normal bowel sounds, soft, nontender, no hepatosplenomegaly Musculoskeletal: no cyanosis or clubbing, extremities motor strength 5/5 Skin: no rashes, warm and dry normal turgor Neurologic: PERRL, EOMI, accommodation nl, no face palsy, no dysarthria CN's II-XI intact bilaterally and moves all extremities Psychiatric: A+Ox3, euthymic affect Lymphatic: no cervical or axillary lymphadenopathy : deferred Results & Data Results & Data ([facility]) Vital Signs (Past 12 Hours) Vital Signs Temp Pulse Resp BP Pulse Ox 02/22/20 13:22 100 02/22/20 13:02 36.9 C 91 H 18 116/49 L 97 Laboratory Results Short CBC 02/22/20 02/22/20 Range/Units 13:10 13:10 WBC 14.53 H (4.8-10.8) K/uL Hgb 9.5 L (12.0-16.0) g/dL Hct 30.6 L (37-47) % Plt Count 382 (130-400) K/uL Creatinine 1.03 (0.6-1.2) mg/dl BMP 02/22/20 13:10 Sodium 139 Potassium 3.5 Chloride 109 H Carbon Dioxide 21 BUN 14 Creatinine 1.03 Glucose 116 H Calcium 8.1 L Cardiac Enzymes 02/22/20 Range/Units 13:10 Troponin I < 0.015 (0-0.045) ng/ml Liver Function 02/22/20 Range/Units 13:10 Total Bilirubin 0.3 (0.2-1) mg/dl AST 19 (15-37) U/L ALT 26 (12-78) U/L Alkaline Phosphatase 97 (45-117) U/L Albumin 2.7 L (3.4-5.0) gm/dl Diagnostic Findings CXR: Cardiomegaly with moderate improvement to pulmonary edema Medications Administered Nitroglycerin (Nitroglycerin Sl 0.4 Mg/Tab Tab) 0.4 mg SL UD PRN PRN Reason: Chest Pain Stop: 03/23/20 13:07 Last Admin: 02/22/20 13:29 Dose: 0.4 mg Documented by: [id number] Discontinued Medications Calcium Gluconate 1,000 mg/ (Sodium Chloride) 60 mls @ 240 mls/hr IV NOW STA Stop: 02/22/20 14:18 Last Infusion: 02/22/20 15:13 Dose: 0 mls/hr Documented by: [id number] Admin: 02/22/20 14:54 Dose: 240 mls/hr Documented by: [id number] Ondansetron HCl (Ondansetron Inj 2 Mg/Ml 2 Ml Vial) 4 mg IV NOW STA Stop: 02/22/20 13:09 Last Admin: 02/22/20 13:28 Dose: 4 mg Documented by: [id number] Potassium Chloride (Potassium Chloride 20 Meq Tabcr) 40 meq PO NOW STA Stop: 02/22/20 14:25 Last Admin: 02/22/20 14:58 Dose: 40 meq Documented by: [id number] ECG Rate (beats per minute): 89 Rhythm: normal sinus Findings: + T-wave inversion Comparison ECG Date: from (02/10) Change: the following changes noted Additional Comments: T wave inversions inferolateral Code Status & VTE Plan Code Status Full Code VTE Prophylaxis Plan VTE Prophylaxis will be ordered: Yes Supervising Physician Co-Signing Physician Notes Attending Addendum: care coordinated with NELLY Gallardo please refer to her notes for full details, I agree with her notes patient seen and examined, records reviewed by myself as well on exam, patient seen resting in bedside chair, comfortable states that her chest pain has resolved, no shortness of breath, no nausea or vomiting, no palpitations or dizziness next Denies cough, fevers or chills no other symptoms VS noted and reviewed oriented x 3, not in distress, speaks in sentences with no effort nor accessory muscle use normal rate, regular rhythm, positive grade 3/6 holosystolic murmur clear breath sounds bilaterally non distended, soft, nontender no bipedal edema, erythema, warmth no neuro deficits WBC 14.5 Hg 9.5 Crea 1.03 ASSESSMENT AND PLAN CHEST PAIN, R/O ACS HISTORY OF CAD CT chest: no dissection or PE start Heparin drip per Cardio continue usual ASA, Plavix, Lipitor, Metoprolol, Lisinopril NPO post midnight, possible Cardiac cath tomorrow HTN stable continue Metoprolol, Lisinopril other diagnoses and plan of care as per NELLY Leonard's notes Suleiman More MD (1) Diabetes mellitus, type 2 Diabetes mellitus complication status: with unspecified complications Diabetes mellitus roasterman insulin use: without halfway use Qualified Code(s): E11.8 - Type 2 diabetes mellitus with unspecified complications
--- NOTE | 2020-02-22 16:02 | Cardiology Consultation ---
Date of Consultation February 22, 2020 Assessment & Plan (1) Acute coronary syndrome: (2) Chest pain: (3) Abnormal ECG: (4) Coronary artery disease: (5) S/P coronary artery stent placement: (6) Chronic heart failure with preserved ejection fraction (HFpEF): (7) Aortic regurgitation: (8) Aortic stenosis: (9) Dyslipidemia: (10) Hypertension: ASSESSMENT/PLAN: 1. Possible Acute Coronary Syndrome: There are new ECG abnormalities, concerning for ischemic heart disease as the cause of her chest discomfort. No wall motion abnormalities on echo while chest pain free. Given her prior history of CAD with PCI and presenting symptoms, would recommend heparin drip. Continue aspirin, Plavix, betablocker. Keep NPO after midnight if no identifiable cause of her chest discomfort for possible cardiac catheterization, pending other studies and serial troponins. Repeat ECG now. Because she is chest pain-free, there is no urgent indication for cardiac catheterization. 2. CAD s/p Ramus and Cx PCI: Symptoms concerning for angina as above. Continue aspirin 81 mg daily indefinitely. Continue Plavix. Continue other medications such as beta-vijay, high-intensity statin therapy, and JEFFERY-inhibitor. Serial troponins. Repeat serial ECG. 3. Chronic diastolic CHF: She does not appear to be significantly hypervolemic. Can continue her on her home dose of diuretic. Low-sodium diet. Daily weights. I&Os. 4. Aortic stenosis and regurgitation: Noted to have trileaflet valve during transesophageal echo in the past. Non severe as per prior full echo reports. Continue to monitor. 5. Hypertension: Blood pressure reasonably controlled. Continue home regimen. 6. Dyslipidemia: Continue high-intensity statin therapy. 7. Tobacco abuse: Recommended that she stop smoking. 8. Disposition: Cardiology will continue to follow. Plan of care discussed with admitting [facility] hospitalist, Roxi Sweet. Her primary bridge manager, Dr. Goodman, will resume her cardiology care tomorrow. Highly complex medical issues. Thank you for allowing me to participate in the care of your patient. Please call for any other questions or concerns. Sincerely, Yahir Girard M.D. History of Present Illness Reason for Consultation: Chest pain with abnormal ECG Requesting Physician: Micki Attending Physician: Micki History of Present Illness Ms. Gonzalez is a pleasant 40-year-old female with a history significant for CAD s/p ramus and Cx PCI (2017), diastolic CHF, aortic stenosis and regurgitation, hypertension, dyslipidemia, diabetes, COPD, seizure disorder, hepatitis-C, and prior IV drug abuse. Her primary bridge manager is Dr. Goodman. In 2017 she underwent PCI of her circumflex and ramus intermedius in the setting of myocardial infarction. She had a repeat cardiac catheterization in May of 2018 with patent stents and PDA of 80%. The PDA was small and medical management was recommended. She was recently hospitalized on 02/09/2020 with and hypoxia. She was diagnosed with acute bronchitis due to rhino virus, sepsis, asthma exacerbation, and diastolic heart failure exacerbation. She was discharged home on Lasix 40 mg twice daily and the initiation of metoprolol succinate, as well as other medications. She states that she has maintained a rather low-sodium diet. She has had occasional shortness of breath since discharge but is tolerating diuretic therapy and states that she has been compliant. Today, just before noon while sitting and eating lunch, she developed a dull substernal chest discomfort that became sharp and radiating to the left side of her chest and through to her back. The pain was similar to prior NH in 2017 however in 2017, she had no back pain. There was shortness of breath accompanied with her chest discomfort today. There was mild diaphoresis. She called for an ambulance. EMS gave her nitroglycerin x2 with improvement of her symptoms. She received another nitroglycerin x1 in the ER. Her chest pain then resolved. She estimates that her total episode was approximately 20 minutes. While awaiting the ambulance, she admits that she did walk and her pain worsened with ambulation. In the ER, she had an ECG which demonstrated inferolateral T-wave inversions, a change from prior ECG on 02/11/2020. She otherwise has had occasional shortness of breath but no orthopnea. She denies syncope, near-syncope, palpitations, edema, or bleeding such as melena, hematochezia, or hematuria. She has had occasional nausea but no vomiting. No fevers or chills. She has had bilateral leg pain since last night described as a soreness. She states that her pain is similar as if she ran a marathon. She has had a left lower extremity DVT while in 2009. She cannot recall her symptoms during that episode. Review of systems: As above. Review of systems otherwise n egative/unremarkable. Family history: Mother had CABG in her 40s. She does not know her father's history. Social history: Currently smoking less than 0.5 packs per day. She had smoked 30 pack year history and had quit in November of 2018 till recently. She denies alcohol or current drug abuse. She has used IV crystal meth in the past. She lives with her boyfriend. She is unaccompanied in the ER. Allergies Allergy/AdvReac Type Severity Reaction Status Date / Time lidocaine Allergy Intermediate HIVES Verified 02/22/20 14:31 procaine Allergy Intermediate HIVES Verified 02/22/20 14:31 Penicillins Allergy Mild HAD NO Verified 02/22/20 14:31 PROBLEM WITH ZOSYN strawberry Allergy Mild HIVES Verified 02/22/20 14:31 cephalexin AdvReac Intermediate YEAST Verified 02/22/20 14:31 INFECTIONS egg AdvReac Intermediate GI UPSET Verified 02/22/20 14:31 tramadol AdvReac Intermediate SEIZURES Verified 02/22/20 14:31 azithromycin AdvReac Mild STOMACH Verified 02/22/20 14:31 PAIN Home Medications Home Medications Medication Instructions Recorded Confirmed Type escitalopram oxalate [Lexapro] 20 mg PO QAM 05/30/18 02/22/20 History levetiracetam [Keppra] 500 mg PO BID 05/30/18 02/22/20 History trazodone 250 mg PO HS 05/30/18 02/22/20 History aspirin 81 mg PO QAM 09/08/18 02/22/20 History lisinopril 5 mg PO QAM 09/08/18 02/22/20 History metformin 1,000 mg PO BID 12/19/18 02/22/20 History atorvastatin 80 mg PO HS 12/28/18 02/22/20 History Lantus Solostar U-100 Insulin 10 unit SUBCUT HS 05/20/19 02/22/20 History Victoza 2-Zac 1.2 mg SUBCUT QAM 06/08/19 02/22/20 History albuterol sulfate 2 puff INHALATION Q4 PRN 11/06/19 02/22/20 History albuterol sulfate 2.5 mg INHALATION Q4 PRN 11/06/19 02/22/20 History buprenorphine-naloxone [Suboxone] 0.5 film SUBLINGUAL TID 11/06/19 02/22/20 History buspirone 15 mg PO BID 11/06/19 02/22/20 History clopidogrel [Plavix] 75 mg PO QAM 11/06/19 02/22/20 History medroxyprogesterone [Depo-Provera] 150 mg IM Q3M 11/06/19 02/22/20 History nitroglycerin [Nitrostat] 0.4 mg SUBLINGUAL UD PRN 11/06/19 02/22/20 History potassium chloride [Klor-Con M20] 20 meq PO QPM 11/06/19 02/22/20 History esomeprazole magnesium 40 mg PO DAILY 02/09/20 02/22/20 History ferrous sulfate 325 mg PO DAILY 02/09/20 02/22/20 History gabapentin 300 mg PO TID 02/09/20 02/22/20 History metoprolol succinate 25 mg PO QAM 30 Days #30 tab 02/11/20 02/22/20 Rx glipizide 10 mg PO DAILYBD 02/22/20 02/22/20 History Patient History Medical History (Updated 02/22/20 @ 16:43 by Mohit Girard MD) Aortic regurgitation Aortic stenosis Asthma Chronic diastolic CHF (congestive heart failure) Coronary artery disease Depression Diabetes mellitus, type 2 Dyslipidemia GERD (gastroesophageal reflux disease) Hepatitis C "Antibiotic screen positive, quantitative RNA positive 08/30/17" Hepatosplenomegaly History of drug abuse History of DVT (deep vein thrombosis) History of renal calculi Hypertension Seizure disorder Surgical History (Updated 02/22/20 @ 16:23 by Mohit Girard MD) History of cardiac cath 2017- 1 ROJAS to ramus, 2 ROJAS to L circumflex. 40-50% plaque to LAD 2018- distal disease (80%) within PDA History of carpal tunnel surgery History of lumbar spinal fusion Hx of tonsillectomy S/P coronary artery stent placement Status post cholecystectomy Family History Other Diabetes Heart disease Hypertension Kidney stones Seizures Social History (Updated 02/22/20 @ 15:27 by Roxi Sweet PA-C) Smoking Status: Current every day smoker Tobacco Type: Cigarettes Cigarettes Per Day: 10; Number of Years Since Quit: 31; Second Hand Exposure: No; Hx Alcohol Use: No Hx Substance Use: Yes Non-Prescribed Medications: Heroin, IV Drugs and Methamphetamines Last Used Substance: Unknown Last Used Substance Other:: 1.5 YEARS AGO Substance Use Type Other:: 1.5 years ago Preferred Language: Yi Communication Ability: Effective Visual Impairment: No Limitations Hearing Ability: Normal Bisque Finisher Required: No Beliefs That Will Affect Care: None marital status: Single Current Living Situation: Other Current Living Situation Comment: LIVES WITH ROOMMATES Feels Safe at Home: Yes Assistive Devices: None Physical Exam Physical Exam: Gen.: No acute distress. Alert and oriented. HEENT: Anicteric sclera. Neck: No appreciable JVD. No bruits. Normal carotid upstrokes bilaterally. Cardiac: PMI was nonpalpable. No ventricular heave. Regular. Normal S1-S2. 2/6 mid-peaking systolic ejection murmur. No rubs or gallops. Pulmonary: Expiratory wheezing bilaterally. No rales. Abdomen: Soft, nontender, nondistended, with normoactive bowel sounds. No bruits noted. Extremities: 2+ radial pulses bilaterally. 2+ posterior tibialis pulses bilaterally. Trace bilateral lower extremity edema. No palpable cords. No cyanosis. Psychiatric: Affect appears appropriate. Results & Data ([facility]) Vital Signs (Past 12 Hours) Vital Signs Temp Pulse Resp BP Pulse Ox 02/22/20 13:22 100 02/22/20 13:02 36.9 C 91 H 18 116/49 L 97 Laboratory Results Laboratory Results - last 24 hr 02/22/20 02/22/20 02/22/20 13:10 13:10 13:10 WBC 14.53 H RBC 3.85 L Hgb 9.5 L Hct 30.6 L MCV 79.5 L MCH 24.7 L MCHC 31.0 L RDW Std Deviation 50.7 H RDW Coeff of Hannah 17.6 H Plt Count 382 MPV 9.7 Immature Gran % (Auto) 0.5 Neut % (Auto) 65.3 Lymph % (Auto) 25.1 [place] % (Auto) 6.0 Eos % (Auto) 3.0 Baso % (Auto) 0.1 Neut # (Auto) 9.49 H Lymph # (Auto) 3.65 H [place] # (Auto) 0.87 H Eos # (Auto) 0.43 Baso # (Auto) 0.02 Immature Gran # (Auto) 0.07 H PT 11.0 INR 1.0 APTT 25.1 PTT Ratio 0.9 Sodium 139 Potassium 3.5 Chloride 109 H Carbon Dioxide 21 Anion Gap 8.0 BUN 14 Creatinine 1.03 Est Cr Clr Drug Dosing 73.3 Est GFR ( Amer) 77.6 Est GFR (Non-Af Amer) 67.0 BUN/Creatinine Ratio 13.9 Glucose 116 H Calcium 8.1 L Magnesium Total Bilirubin 0.3 AST 19 ALT 26 Alkaline Phosphatase 97 Troponin I < 0.015 Total Protein 6.5 Albumin 2.7 L Globulin 3.8 Albumin/Globulin Ratio 0.7 L Lipase 123 02/22/20 13:10 WBC RBC Hgb Hct MCV MCH MCHC RDW Std Deviation RDW Coeff of Hannah Plt Count MPV Immature Gran % (Auto) Neut % (Auto) Lymph % (Auto) [place] % (Auto) Eos % (Auto) Baso % (Auto) Neut # (Auto) Lymph # (Auto) [place] # (Auto) Eos # (Auto) Baso # (Auto) Immature Gran # (Auto) PT INR APTT PTT Ratio Sodium Potassium Chloride Carbon Dioxide Anion Gap BUN Creatinine Est Cr Clr Drug Dosing Est GFR ( Amer) Est GFR (Non-Af Amer) BUN/Creatinine Ratio Glucose Calcium Magnesium 1.4 L Total Bilirubin AST ALT Alkaline Phosphatase Troponin I Total Protein Albumin Globulin Albumin/Globulin Ratio Lipase Diagnostic Findings ECG personally reviewed: ECG 02/22/2020: Sinus rhythm 89 beats per minute. Inferolateral T-wave inversion. Echo images personally reviewed at the bedside and discussed with patient. Echo 02/22/2020: Limited echo. EF 65-70%. Normal wall motion. Mild LVH. Mild left atrial dilation. Chest x-ray 02/22/2020: Moderately improved pulmonary edema per Radiology. Medications Administered Current Inpatient Medications Buprenorphine/Naloxone (Buprenorphine/Naloxone 8/2 Mg Tab) 0.5 tab SL TID WILMA Stop: 03/23/20 15:09 Magnesium Sulfate/Dextrose (Magnesium Sulfate / D5w) 1 gm in 100 mls @ 50 mls/hr IV Q2H WILMA Stop: 02/22/20 19:29 Insulin Aspart (Insulin Aspart 100 Units/Ml 3 Ml Pen) 0 units SC ACHS WILMA Stop: 03/23/20 16:29 Nitroglycerin (Nitroglycerin Sl 0.4 Mg/Tab Tab) 0.4 mg SL UD PRN PRN Reason: Chest Pain Stop: 03/23/20 13:07 Last Admin: 02/22/20 13:29 Dose: 0.4 mg Documented by: PG Care Time/CCT Total # of Minutes Spent Total Time Spent with Patient: Total time spent is greater than 50% in coordination of care (as documented) at patient's floor/unit and/or counseling patient: Coding Level of Care Code 77509 Initial Inpt Care Lvl 3 Diagnoses Acute coronary syndrome I24.9 Chest pain R07.9 Abnormal ECG R94.31 Coronary artery disease I25.10 S/P coronary artery stent placement Z95.5 Chronic heart failure with preserved ejection fraction (HFpEF) I50.32 Aortic regurgitation I35.1 Aortic stenosis I35.0 Dyslipidemia E78.5 Hypertension I10
--- NOTE | 2020-02-22 16:18 | XCELERA ---
[id number]
[2020-02-22] MEDS ORDERED: OPTIRAY 320 125ml IV ONE (16:31)
[2020-02-22] MEDS: INSULIN ASPART 100 UNITS/ML 3 ML PEN SC SCH ×2 (16:35→21:32)
--- NOTE | 2020-02-22 16:45 | CT Scan Report ---
CT angio chest PE protocol CT DOSE: 512.39 mGy.cm HISTORY: 40 years-old Female with PE. Acute shortness of breath. Follow-up study in a patient with recent pulmonary edema. TECHNIQUE: Multiple CTA images of the chest were obtained after the intravenous administration of 120 ml Optiray 320. Coronal and sagittal MIPS were obtained from the axial data set and were submitted for review. All measurements were obtained according to NASCET criteria. A dose lowering technique w as utilized adhering to the principles of ALARA. COMPARISON: Chest radiograph of same day, CTA chest 02/09/2020 FINDINGS: CTA: Cardiomegaly with moderate coronary artery calcifications. There is no pericardial effusion. There is no thoracic aortic aneurysm or dissection. There is patency of the imaged great vessels. The pulmona ry arterial tree is opacified to the level of the proximal subsegmental branches and demonstrates no filling defects to suggest thromboembolic disease. CT CHEST: Unchanged 2 cm left thyroid nodule. Enlarged mediastinal and bilateral hilar lymph nodes redemonstrat ed which includes a subcarinal lymph node measuring 1.5 cm in short axis mildly decreased in size fro m most recent comparison. No new or progressive adenopathy. Intralobular and bronchial wall thickening is noted with intermixed groundglass densities. Mosaic att enuation is noted within the left lung base. There are a few thin-walled pulmonary cysts present. The re is decreased bilateral airspace opacities with moderately improved aeration of the lungs from most recent CTA. There is a 9 mm subpleural nodular consolidative opacity of the left lower lobe on image 66 series 4 which appears new from comparison. There is an adjacent 4 mm solid nodule on image 70 se jose manuel 4. 3 mm fissural nodule on the left on image 127 series 4 is suggestive of a probable lymph node . Fissural nodules adjacent to the right middle lobe measuring up to 6 mm are also suggestive of prob able lymph nodes. 5 mm subpleural nodule of the right lower lobe, image 57 series 4. Central airways appear patent. Nonspecific mild distal esophageal wall thickening. Bones appear intact. Multilevel intervertebral di sc space narrowing with spondylitic spurring. Healed remote left-sided rib fractures. IMPRESSION: 1. Cardiomegaly with moderately improved aeration of the lungs. There are continued findings of inter stitial pulmonary edema with decreased amount of bilateral airspace and groundglass opacities suggest joanne of resolving alveolar pulmonary edema versus a nonspecific pneumonitis. 2. There are a few subpleural nodular opacities as above including a 9 mm nodular opacity of the left lower lobe which appears new from prior, likely infectious or inflammatory. As a precautionary measu re a one month follow-up study may be considered. 3. Decreased adenopathy of the chest, likely reactive. 4. No evidence of pulmonary thromboembolic disease. ACT 112: Negative or not required by law. The above report was generated using voice recognition software. It may contain grammatical, syntax o r spelling errors. Electronically signed by: Isidro Eli M.D. 02/22/2020 4:43 PM
[2020-02-22] MEDS ORDERED: Heparin IV Standard *NO* Bolus IV SCH (16:57)
[2020-02-22] MEDS ORDERED: HEPARIN SODIUM/DEXTROSE 25,000 UNITS/500 ML BAG IV SCH (17:00)
[2020-02-22] MEDS ORDERED: GLUCAGON FOR INJ 1 MG VIAL SQ PRN (17:35)
[2020-02-22] MEDS ORDERED: GLUCOSE 10 TABS/TUBE PO PRN (17:35)
[2020-02-22] MEDS ORDERED: CARBOHYDRATES FOR HYPOGLYCEMIA PO PRN (17:35)
[2020-02-22] MEDS ORDERED: ONDANSETRON INJ 2 MG/ML 2 ML VIAL IV PRN (17:35)
[2020-02-22] MEDS ORDERED: ALBUTEROL HFA 8 GM INHALER INH PRN (17:35)
[2020-02-22] MEDS ORDERED: ALUMINUM/MAGNESIUM SUSP 30 ML UDC PO PRN (17:35)
[2020-02-22] MEDS ORDERED: POLYETHYLENE (MIRALAX) 17 GM PACK PO PRN (17:35)
[2020-02-22] MEDS ORDERED: MAGNESIUM HYDROXIDE SUSP 30 ML UDC PO PRN (17:35)
[2020-02-22] MEDS ORDERED: DEXTROSE 50% 50 ML SYRINGE IV PRN (17:35)
[2020-02-22] MEDS ORDERED: ALBUTEROL 0.083% NEBU SOLN 3 ML VIAL INH PRN (17:35)
[2020-02-22] MEDS ORDERED: GLUCOSE 40% GEL 15 GM TUBE PO PRN (17:35)
[2020-02-22] MEDS ORDERED: ACETAMINOPHEN 325 MG TAB PO PRN (17:35)
[2020-02-22] MEDS: BUPRENORPHINE/NALOXONE 8/2 MG TAB SL SCH ×2 (17:37→20:54)
[2020-02-22] MEDS: MAGNESIUM OXIDE 400 MG TAB PO SCH (18:29)
[2020-02-22 18:31] LABS: Magnesium 1.5 mg/dl (1.8-2.4); Troponin I < 0.015 ng/ml (0-0.045)
[2020-02-22] MEDS: MAGNESIUM SULFATE / D5W 1 GM/100 ML BAG IV SCH ×2 (19:32→20:32)
[2020-02-22] MEDS: GABAPENTIN 300 MG CAP PO SCH (20:49)
[2020-02-22] MEDS: ATORVASTATIN 40 MG TAB PO SCH (20:49)
[2020-02-22] MEDS: traZODone HCL 50 MG TAB PO SCH (20:50)
[2020-02-22] MEDS: levETIRAcetam 500 MG TAB PO SCH (20:50)
[2020-02-22] MEDS: busPIRone 15 MG TAB PO SCH (20:50)
[2020-02-22] MEDS ORDERED: POTASSIUM CHLORIDE 20 MEQ TABCR PO SCH (21:00)
[2020-02-22] MEDS: INSULIN GLARGINE SOLOSTAR 100 UNITS/ML 3 ML PEN SC SCH (21:33)
[2020-02-22] MEDS ORDERED: HEPARIN SOD 5,000 UNIT/0.5 ML VIAL SQ SCH (22:00)
[2020-02-23 00:45] LABS: Partial Thromboplastin Ratio 1.2; Partial Thromboplastin Time 33.3 Seconds (21.0-31.0)
[2020-02-23] MEDS ORDERED: HEPARIN IV BOLUS 5,000 UNITS in SYRINGE 0 ML IV ONE (01:30)
--- NOTE | 2020-02-23 05:32 | Electrocardiogram Report ---
Test Reason : Blood Pressure : / mmHG Vent. Rate : 089 BPM Atrial Rate : 089 BPM P-R Int : 134 ms QRS Dur : 096 ms QT Int : 370 ms P-R-T Axes : 062 052 -37 degrees QTc Int : 450 ms Normal sinus rhythm Possible Left atrial enlargement T wave abnormality, consider inferolateral ischemia Abnormal ECG When compared with ECG of 11-FEB-2020 06:35, T wave inversion now evident in Anterolateral leads T wave inversion more evident in Inferior leads Confirmed by Mohit Girard ([id number]) on 02/23/2020 5:32:32 AM Referred By: REFERRED SELF Confirmed By:Mohit Girard
[2020-02-23] MEDS: INSULIN ASPART 100 UNITS/ML 3 ML PEN SC SCH ×5 (07:55→21:43)
[2020-02-23] MEDS: CLOPIDOGREL BISULFATE 75 MG TAB PO SCH (08:11)
[2020-02-23] MEDS: PANTOprazole 40 MG TAB PO SCH (08:12)
[2020-02-23] MEDS: ESCITALOPRAM OXALATE 20 MG TAB PO SCH (08:12)
[2020-02-23] MEDS: lisinopril 5 MG TAB PO SCH (08:12)
[2020-02-23] MEDS: busPIRone 15 MG TAB PO SCH ×2 (08:12→21:40)
[2020-02-23] MEDS: levETIRAcetam 500 MG TAB PO SCH ×2 (08:12→21:42)
[2020-02-23] MEDS: ASPIRIN 81 MG ECTAB PO SCH (08:13)
[2020-02-23] MEDS: GABAPENTIN 300 MG CAP PO SCH ×3 (08:13→21:40)
[2020-02-23] MEDS: METOPROLOL SUCC 25MG EXT REL TAB PO SCH (08:13)
[2020-02-23] MEDS: FERROUS SULFATE 325 MG TAB PO SCH (08:13)
[2020-02-23] MEDS: MAGNESIUM OXIDE 400 MG TAB PO SCH (08:14)
[2020-02-23] MEDS: BUPRENORPHINE/NALOXONE 8/2 MG TAB SL SCH ×3 (08:22→21:37)
[2020-02-23 08:30] LABS: Basophils # (auto) 0.02 K/uL (0-0.2); Basophils % (auto) 0.2 %; Eosinophils # (auto) 0.46 K/uL (0-0.5); Hematocrit (blood only) 30.9 % (37-47); Hemoglobin 9.3 g/dL (12.0-16.0); Immature Granulocytes # (auto) 0.05 K/uL (0.00-0.02); Immature Granulocytes % (auto) 0.4 %; Lymphocytes # (auto) 2.42 K/uL (1.2-3.4); Lymphocytes % (auto) 20.8 %; Mean Corpuscular Hemoglobin 24.2 pg (25-34); Mean Corpuscular Hgb Conc 30.1 g/dL (32-36); Mean Corpuscular Volume 80.5 fL (80-100); Mean Platelet Volume 9.6 fL (7.4-10.4); Monocytes % (auto) 6.9 %; Neutrophils # (auto) 7.89 K/uL (1.4-6.5); Neutrophils % (auto) 67.7 %; Platelet Count 369 K/uL (130-400); RDW Coefficient of Variation 17.5 % (11.5-14.5); RDW Standard Deviation 52.1 fL (36.4-46.3); Red Blood Count 3.84 M/uL (4.2-5.4); White Blood Count 11.64 K/uL (4.8-10.8)
[2020-02-23 08:38] LABS: Partial Thromboplastin Ratio 1.5; Partial Thromboplastin Time 42.1 Seconds (21.0-31.0)
[2020-02-23 09:19] LABS: Albumin Globulin Ratio 0.7 (0.9-2); Albumin Level 2.7 gm/dl (3.4-5.0); Bilirubin,Total 0.2 mg/dl (0.2-1); Calcium 8.2 mg/dl (8.5-10.1); Creatinine Clr Calc Pharmacy 86.7 ml/min; Est GFR (African American) 95.2; Est GFR (Non-African American) 82.2; Globulin 3.9 gm/dl (2.5-4.0); Magnesium 1.8 mg/dl (1.8-2.4); Phosphorus 3.6 mg/dl (2.5-4.9); Potassium 4.4 mmol/L (3.5-5.1); Total Protein 6.6 gm/dl (6.4-8.2)
[2020-02-23] MEDS ORDERED: MAGNESIUM SULFATE / D5W 1 GM/100 ML BAG IV ONE (09:33)
--- NOTE | 2020-02-23 09:33 | Hospitalist Progress Note ---
Date of Service February 23, 2020 Assessment & Plan (1) Atypical chest pain: -as per 02/22/2020 admission History and Physical "This is a 40-year-old female who has significant past medical history of CAD with history of ROJAS to left circumflex and ramus intermedius 10/2016, HTN, HLD, mild aortic stenosis and aortic insufficiency, insulin-dependent T2DM, COPD, seizure disorder, hepatitis C, GERD, history of IVDA on Suboxone, tobacco abuse who presents to ED secondary to chest pain and shortness of breath that started at approximately 12 PM" -In ED she remained hemodynamically stable. She was mildly tachycardic. -EKG revealed new T wave inversions inferior laterally compared to prior EKG on 02/10. (2) Acute electrocardiogram changes: -on presentation as above (3) Coronary artery disease: -history of Drug eleuting stents to Lcx and ramus intermedius 10/2016, Initially followed [facility] cardiology but now established with [facility] cardiology -on aspirin, Plavix, statin, metoprolol and lisinopril -patient was started on heparin drip in case of acute coronary syndrome after 02/22/2020 CTA did not find dissection or pulmonary embolism -troponins negative -[facility] cardiology suggested possibly that symptoms were from angina. patient will get cardiac cath on 02/23/2020 as per [facility] cardiology discussion with patient and patient's nurse (patient therefor upgraded from observation to full admission) (4) Chronic heart failure with preserved ejection fraction (HFpEF): -echocardiogram 02/09/2020 EF 55-60% with mild aortic valve stenosis/ aortic regurg -02/23/2020 echocardiogram completed and "more hyperdynamic" but otherwise appears unchanged -on metoprolol and lisinopril (5) Hypomagnesemia: -02/22/2020 serum magnesium 1.4, patient was given mag sulfate 1g IV x 2 and started oral repletion 400mg mag ox daily -serum magnesium 1.8 on 02/23/2020, additional magnesium supplements ordered (6) Diabetes mellitus, type 2: Type 2 diabetes mellitus without emt intermediate current of insulin -HbA1c 02/10/2020 6.3 -Hold Victoza, Metformin and glipizide while inpatient -Lantus/NovoLog based on blood sugars (7) Hypertension: -on metoprolol, lisinopril (8) Dyslipidemia: -on atorvastatin (9) Asthma: Abnormal CTA (CT angiogram) scan -recent hospitalization secondary to asthma exacerbation secondary to rhinovirus and she had completed prednisone course as well as antibiotic Levaquin -the Chest CTA on 02/22/2020 with abnormal imaging findings of nodular opacities 1. Cardiomegaly with moderately improved aeration of the lungs. There are continued findings of interstitial pulmonary edema with decreased amount of bilateral airspace and groundglass opacities suggestive of resolving alveolar pulmonary edema versus a nonspecific pneumonitis. 2. There are a few subpleural nodular opacities as above including a 9 mm nodular opacity of the left lower lobe which appears new from prior, likely infectious or inflammatory. As a precautionary measure a one month follow-up study may be considered. 3. Decreased adenopathy of the chest, likely reactive. 4. No evidence of pulmonary thromboembolic disease. (10) Leukocytosis: -no fever on this presentation -however, patient appears to have chronically elevated WBC because on [facility] records -monitor the WBCs, patient may need hematology clinic referral or pulmonary clinic referral (11) GERD (gastroesophageal reflux disease): -continue PPI (12) Hx of drug abuse: -continue suboxone therapy (13) DVT prophylaxis: -on IV heparin Admission and Anticipated Discharge Date Admission Date: February 22, 2020 Subjective patient on IV heparin drip. denies current chest discomforts, breathing on room air. no shortness of breath. no dizziness. no headache. no vomiting. no abdominal pain. no vomiting. no fevers patient will get cardiac cath on 02/23/2020 as per [facility] cardiology discussion with patient and patient's nurse (patient therefor upgraded from observation to full admission) Review of Systems Review of Systems: All systems reviewed & are unremarkable except as noted in Subjective Physical Exam Constitutional: cooperative and comfortable Eyes: PERRL, conjunctivae normal, anicteric sclerae ENMT: external ear and nose normal, oropharynx normal Neck: normal visual inspection Respiratory: normal respiratory effort, lungs clear to auscultation Cardiovascular: Rate/Rhythm: regular rate Gastrointestinal (Abdomen): normal bowel sounds, soft, nontender, no hepatosplenomegaly Musculoskeletal: Head/Neck/Chest: normocephalic and head atraumatic Neurologic: PERRL, EOMI, accommodation nl, no face palsy, no dysarthria CN's II-XI intact bilaterally and moves all extremities Psychiatric: A+Ox3, euthymic affect Results & Data Results & Data ([facility]) Vital Signs (Past 12 Hours) Vital Signs Temp Pulse Pulse Resp BP Pulse Ox 02/23/20 07:58 36.3 C L 73 20 101/64 96 02/23/20 04:35 36.7 C 77 18 108/71 96 02/23/20 00:10 85 02/22/20 23:59 36.7 C 74 20 100/62 95 (1) Diabetes mellitus, type 2 Diabetes mellitus complication status: with unspecified complications Diabetes mellitus [facility] insulin use: without [facility] use Qualified Code(s): E11.8 - Type 2 diabetes mellitus with unspecified complications
[2020-02-23] MEDS ORDERED: MIDAZOLAM HCL 1 MG/ML 2ML VIAL ONE ×5 (10:36→13:46)
[2020-02-23] MEDS ORDERED: NITROGLYCERIN/D5W 100MCG/ML 20ML SYR ONE (10:36)
[2020-02-23] MEDS ORDERED: HEPARIN (PORCINE) 1000 UNIT/ML 10 ML (CATH LAB USE ONLY) ONE (10:36)
[2020-02-23] MEDS ORDERED: fentaNYL citrate 100 MCG/2 ML VIAL ONE ×2 (10:36→12:45)
[2020-02-23] MEDS ORDERED: niCARdipine HCL INJ 2.5 MG/ML 10 ML AMP ONE (10:36)
[2020-02-23] MEDS ORDERED: BUPIVACAINE 0.25% 30 ML VIAL ONE (10:45)
--- NOTE | 2020-02-23 10:52 | Cardiology Progress Note ---
Date of Service February 23, 2020 Assessment & Plan (1) Acute coronary syndrome: -patient remains pain-free. -troponins remain normal, however, she did demonstrate dynamic EKG changes. -the patient has known coronary artery disease. -will proceed with cardiac catheterization today. (2) Coronary artery disease: -LCx and ramus intermedius ROJAS back in October 2016. -stents patent at time of cardiac catheterization, May 2018. -80% right-sided PDA stenosis, small vessel, medical management, May 2018 -continue aspirin, Plavix, atorvastatin, metoprolol succinate, and lisinopril. (3) Chronic heart failure with preserved ejection fraction (HFpEF): -compensated at this time. (4) Aortic stenosis: -mild aortic stenosis and aortic insufficiency on echocardiogram earlier this month. Admission and Anticipated Discharge Date Admission Date: February 23, 2020 Subjective The patient is resting comfortably in the bedside chair without complaints of chest pain or dyspnea. We have discussed need to proceed with a cardiac catheterization. The patient understands and agrees. Physical Exam Physical Exam: In general well-developed well-nourished white female no acute distress. HEENT exam is negative. Neck is supple with full carotid upstrokes. No obvious bruits or transmitted murmurs. Jugular venous pressure is flat at 90. Cardiovascular exam reveals a regular rhythm with distant heart sounds. There is a 2/6 crescendo decrescendo systolic murmur heard loudest at the base. No diastolic murmurs. Lungs note scattered wheezes and rales. Abdomen is obese without bruits. Extremities reveal intact radial artery pulses bilaterally. There is trace pretibial and pedal edema. Results & Data ([facility]) Vital Signs (Past 12 Hours) Vital Signs Temp Pulse Pulse Resp BP Pulse Ox 02/23/20 07:58 36.3 C L 73 20 101/64 96 02/23/20 04:35 36.7 C 77 18 108/71 96 02/23/20 00:10 85 02/22/20 23:59 36.7 C 74 20 100/62 95 Laboratory Results Troponin I levels remain undetectable. Diagnostic Findings cardiac monitor notes no significant dysrhythmia. PG Care Time/CCT Total # of Minutes Spent Total Time Spent with Patient: Total time spent is greater than 50% in coordination of care (as documented) at patient's floor/unit and/or counseling patient: Coding Level of Care Code 51714 Subseq Hosp Care Lvl 3 Diagnoses Acute coronary syndrome I24.9 Coronary artery disease I25.10 Chronic heart failure with preserved ejection fraction (HFpEF) I50.32 Aortic stenosis I35.0
--- NOTE | 2020-02-23 11:59 | Pre Anesthesia Assessment ---
Date of Service February 23, 2020 Pre Sedation Assessment Vital Signs Temp Pulse Pulse Resp BP BP Pulse Ox 02/23/20 07:58 36.3 C L 73 20 101/64 96 02/23/20 04:35 36.7 C 77 18 108/71 96 02/23/20 00:10 85 02/22/20 23:59 36.7 C 74 20 100/62 95 02/22/20 19:11 36.6 C 87 18 95/60 L 98 02/22/20 16:14 36.6 C 87 22 110/67 99 02/22/20 15:25 80 17 135/78 98 02/22/20 13:22 100 02/22/20 13:02 36.9 C 91 H 18 116/49 L 97 Cardiovascular + murmur Respiratory normal respiratory effort, lungs clear to auscultation Pre-Sedation Airway Assessment Smoking Status: Current every day smoker Hx Sleep Apnea: No Short, Thick Neck: No Mallampati Class: IV ASA: ASA3 NPO Status Date of Last Intake of Fluids: 02/22/20 Time of Last Intake of Fluids: 20:00 Date of Last Intake of Solid Food: 02/22/20 Time of Last Intake of Solid Foods: 20:00 Procedure Planning Contraindications for Sedation: none Current Medications Reviewed: Yes Notes The planned sedation has been discussed with the patient. Informed Consent was obtained. I have identified the patient, determined the appropriateness of sedation and have assessed the patient immediately prior to the procedure. All medicine(s) and interventions are by my order.
--- NOTE | 2020-02-23 13:13 | Cardiac Catheterization ---
[facility] Data: Lapping Machine Tender Cardiac Status Clinical evaluation leading to the procedure CAD Presenation: Unstable angina Anginal Classification: CCS IV Heart Failure: NYHA Class: CCS II Cardiogenic Shock within 24 Hours: No Cardiac Arrest within 24 Hours: No Imaging Studies Past 6 Months: Yes Stress Studies Past 6 Months: No Standard Exercise Test: No Stress Echocardiogram: No Stress Testing w/SPECT MPI: No Cardiac CTA: No Coronary Anatomy Dominant: Co-Dominant Left Ventricular Angiography EF (%): n/a Aortography Aortic Regurgitation: 1+ Diagnostic Physicians Name: Mohit Girard MD Status: Elective Closure Device Percutaneous Entry Location: Radial Closure Device: Radial Band (after PCI attempt) Recommendations: PCI without planned CABG Cardiac Cath Procedure Full Procedure Date February 23, 2020 Pre-Procedure Diagnosis Pre-Procedure Diagnosis: Acute Coronary Syndrome AUC Score AUC Score: 8 Post-Procedure Diagnosis Post-Procedure Diagnosis: Severe CAD Procedure(s) Performed Procedure(s) Performed: Coronary Angiography, Left Heart Cath and Aortography (Aortography was performed to further evaluate aortic regurgitation as there was concern for possible more significant regurgitation than what was visualized on echo based on last echo report.) Reflector Driller And Deburrer Mohit Girard MD Deputy Coroner(s) Fiordaliza Estimated Blood Loss Estimated Blood Loss: < 25 ml Medication(s) Medication(s): Fentanyl, Heparin, Nicardipine and Versed Medication(s): Bupivocaine Summary of Findings Procedures: 1. Coronary angiography 2. Left heart catheterization 3. Supravalvular aortography 4. Moderate sedation Coronary angiography: 1. Left main coronary artery: LMCA is large in caliber. No CAD. 2. Left anterior descending: LAD is a large-caliber vessel that extends to the apex. Mid LAD 30 to 40%. Small D1 and small D2. 3. Circumflex: Large vessel. Codominant. Proximal circumflex 40%. Mid circumflex 20%. Medium caliber OM1. Circumflex PDA stents patent. 4. Right coronary artery: The RCA is large and codominant. Early mid RCA 20%. Distal RCA 10 to 20%. Mid RCA PDA 90%. Distal PDA 70%. 5. Ramus intermedius: Mid ramus stent patent. Just proximal to mid ramus stent there was a 30% stenosis. Left heart catheterization: 1. Left ventriculography was not performed. 2. Peak to peak gradient across the aortic valve was 10-20 mmHg. 3. Mildly elevated LVEDP; 15-18 mmHg. Supravalvular aortography: 1. 1+ aortic regurgitation 2. Aortic root appears normal in size. 3. No dissection. Moderate sedation: 1. Sedation start time: 12:12 PM 2. Sedation end time: 12:46 PM Impression: 1. Severe CAD involving RCA PDA, new severely stenotic area compared to 2019 cath. 2. Patent circumflex PDA and ramus stents. 3. Otherwise, mild to moderate nonobstructive CAD. 4. Aortic regurgitation 1+ 5. Mild to moderate aortic stenosis. 6. Mildly elevated left-sided filling pressure. Plan: 1. Images reviewed with Dr. Hay of interventional cardiology who plans to attend PCI of RCA PDA. Hemodynamics Rest Ao:: 90/54 Final Ao: 83/52 LV: 107/0/18 Recommendations Recommendations: PCI without planned CABG Specimens Specimens: None Radiation Exposure (mGy) 1219 mGy. Fluoro time 5 min. Contrast (mls) 65 ml Procedural Complication(s) None Disposition remains in supervisor dental laboratory for PCI attempt I attest to the content of the Intraoperative Record and any orders documented therein. Any exceptions are noted below. [facility] Card Cath Procedure Codes Cardiac Catheterization Procedure 1: Cardiovascular Cath Procedures: 09151 Coronaries and LHC (+/-LV) Therapeutic Services & Ancillary Proc Procedure 1: Cardiovascular Tx and Anc Procedures: 93364 Supravalvular Aortography Moderate Sedation Procedure 1: Sedation/Anesthesia: 74012 Mod Sedation by the same physician;Init15 Min Child Age 5 & Up Procedure 2: Sedation/Anesthesia: 29667 Mod Sedation by the same physician; Ea [id number] Minutes PG Care Time/CCT Total # of Minutes Spent Total Time Spent with Patient: Total time spent is greater than 50% in coordination of care (as documented) at patient's floor/unit and/or counseling patient:
[2020-02-23] MEDS ORDERED: CLOPIDOGREL BISULFATE 300 MG TAB ONE (13:22)
[2020-02-23] MEDS ORDERED: NITROGLYCERIN 2% OINTMENT 30GM TUBE ONE (13:46)
--- NOTE | 2020-02-23 13:51 | Post Anesthesia Assessment ---
Date of Service February 23, 2020 Post Sedation Assessment Vital Signs Temp Pulse Pulse Resp BP BP Pulse Ox 02/23/20 07:58 97.3 F L 73 20 101/64 96 02/23/20 04:35 98.1 F 77 18 108/71 96 02/23/20 00:10 85 02/22/20 23:59 98.1 F 74 20 100/62 95 02/22/20 19:11 97.9 F 87 18 95/60 L 98 02/22/20 16:14 97.9 F 87 22 110/67 99 02/22/20 15:25 80 17 135/78 98 Recovery Score Activity: Moves 4 extremities Respiration: Deep Breath/Cough Circulation: +/-20% PreAnes Value Consciousness: Fully Awake Oxygen Saturation: O2 needed for >90% Discharge Sedation Level of Care: Fast Track Phase II Post Sedation Plan On clinical assessment, the patient appears to have tolerated the sedation without complications. Patient is recovering as anticipated. Patient will continue to be monitored by nursing and may be discharged when sedation discharge criteria are met per below protocol. Upon Completions of procedure up to 15 minutes continue every 5 minute vital signs and the P.A.R. score; then discharge to a Phase I or Fast Track to Phase II per the following guidelines: * Discharge Patient to appropriate Phase II area if PAR is 8 or greater or return to pre- procedure baseline. The post - procedure orders will be as directed. * If PAR score is less than 8 or not return to pre-procedure baseline then patient will follow Phase I monitoring till PAR is reached for Phase II. The Phase I may be done in procedure room or may call to secure a Phase I area. * If naloxone or flumazenil are used for reversal, hold in Phase I for continued monitoring from when last reversal dose was given for a minimum of 60 minutes or longer pending the nurse and/or physician discretion of patient condition before discharge to Phase II. Please call the Sedation Physician to re-evaluate and complete post-note for discharge to Phase II area. Do NOT discharge from procedure sedation or Phase 1 until post- sedation evaluation note is complete by procedure /sedation MD Sedation Discharge Instructions to be given to the patient at discharge to home.
--- NOTE | 2020-02-23 13:57 | Cardiac Catheterization ---
[facility] Data: Business Project Analyst Cardiac Status Clinical evaluation leading to the procedure CAD Presenation: Unstable angina Anginal Classification: CCS III Heart Failure: No Cardiogenic Shock within 24 Hours: No Cardiac Arrest within 24 Hours: No Imaging Studies Past 6 Months: Yes Stress Studies Past 6 Months: No Diagnostic Physicians Name: Liu Hay MD Status: Elective Closure Device Percutaneous Entry Location: Radial Closure Device: Radial Band Recommendations: PCI without planned CABG PCI Indication: Unstable Angina Lesion Segment Name: mid R-PDA Culprit Artery: Yes Stenosis Prior to Rx (%): 90 Chronic Total Occlusion: No IVUS: No FFR: No Pre-Procedure GARFIELD Flow: 3 Previously Treated Lesion: No Lesion Complexity: Non-High/Non-C Lesion Length (mm): 10 Thrombus Present: No Bifurcation Lesion: No Guidewire Across Lesion: Stenosis Post-Procedure (%): 0 Post-Procedure GARFIELD Flow: 3 Devices(s) Deployed: Yes Yes Intraprocedure Events Significant Disection: No Perforation: No Cardiac Cath Procedure Full Procedure Date February 23, 2020 Pre-Procedure Diagnosis Pre-Procedure Diagnosis: Acute Coronary Syndrome AUC Score AUC Score: 8 Post-Procedure Diagnosis Post-Procedure Diagnosis: Severe CAD and Successful PCI Procedure(s) Performed Procedure(s) Performed: Drug Eluting Stent Agriculture Specialist Liu Hay MD Road Engineer Freight(s) Fiordaliza Estimated Blood Loss Estimated Blood Loss: < 25 ml Medication(s) Medication(s): Clopidogrel, Fentanyl, Heparin, Lidocaine 1%, Nicardipine, Nitroglycerin and Versed Summary of Findings Indication: Acute coronary syndrome Access: 6 Fr right radial artery Catheters: 5 Fr JR4 guide Findings: For full details of patient's coronary angiography please see cath report dictated by Dr. Girard. Briefly, patient found to have severe single-vessel disease with a 90% mid right PDA stenosis. Decision to proceed with PCI. -- PCI -- Antithrombotic therapy: Heparin, clopidogrel Procedure: RCA cannulated with JR4 guide BMW wire passed across lesion into distal vessel Mid PDA lesion predilated with 2.0 compliant balloon Dilated lesion stented with 2.25 x 12 mm Wildrose drug-eluting stent Stent post-dilated with 2.25 noncompliant balloon IC vasodilators administered for spasm Post procedure GARFIELD 3 flow, stent well expanded with minimal residual stenosis and no apparent cardiac complications. Arterial Closure: TR band Summary: 1. Successful PCI of mid right PDA with single drug-eluting stent (2.25 x 12 mm Santosh). Recommendations: To PCU for continued monitoring Reloaded with clopidogrel 300 mg in Business Project Analyst Continue dual-antiplatelet therapy for at least 1 year Continue statin, and ASCVD risk factor modification Consult cardiac Rehab Hemodynamics Rest Ao:: 100/61/78 Final Ao: 103/56/79 LV: -- Recommendations Recommendations: PCI without planned CABG Specimens Specimens: None Radiation Exposure (mGy) 2553 Contrast (mls) 105 Fluids (cc crystalloids) Fluids (cc crystalloids): 350 Drains Drains: none Anesthesia moderate Procedural Complication(s) None Disposition PCU I attest to the content of the Intraoperative Record and any orders documented therein. Any exceptions are noted below. [facility] Card Cath Procedure Codes Moderate Sedation Procedure 1: Sedation/Anesthesia: 29820 Mod Sedation by the same physician; Ea [id number] Minutes Stenting Procedure 1: Cardiovascular Stent Procedures: 29047 Perc transcatheter placement of intracoronary stent(s), with ang PG Care Time/CCT Total # of Minutes Spent Total Time Spent with Patient: Total time spent is greater than 50% in coordination of care (as documented) at patient's floor/unit and/or counseling patient:
[2020-02-23] MEDS ORDERED: SODIUM CHLORIDE 0.9% 1000ML 1,000 ML IV SCH (14:00)
[2020-02-23] MEDS ORDERED: ACETAMINOPHEN 325 MG TAB PO PRN (16:26)
[2020-02-23] MEDS: ATORVASTATIN 40 MG TAB PO SCH (21:41)
[2020-02-23] MEDS: traZODone HCL 50 MG TAB PO SCH (21:41)
[2020-02-23] MEDS: INSULIN GLARGINE SOLOSTAR 100 UNITS/ML 3 ML PEN SC SCH (21:42)
--- NOTE | 2020-02-24 05:54 | Electrocardiogram Report ---
Test Reason : Blood Pressure : / mmHG Vent. Rate : 079 BPM Atrial Rate : 079 BPM P-R Int : 140 ms QRS Dur : 104 ms QT Int : 412 ms P-R-T Axes : 061 059 -05 degrees QTc Int : 472 ms Normal sinus rhythm T wave abnormality, consider inferior ischemia Abnormal ECG When compared with ECG of 22-FEB-2020 13:02, T wave inversion no longer evident in Inferolateral leads Confirmed by Mohit Girard ([id number]) on 02/24/2020 5:53:59 AM Referred By: REFERRED SELF Confirmed By:Mohit Girard
[2020-02-24 07:51] LABS: Basophils # (auto) 0.01 K/uL (0-0.2); Basophils % (auto) 0.1 %; Eosinophils # (auto) 0.37 K/uL (0-0.5); Hematocrit (blood only) 29.7 % (37-47); Immature Granulocytes # (auto) 0.04 K/uL (0.00-0.02); Immature Granulocytes % (auto) 0.4 %; Lymphocytes # (auto) 2.56 K/uL (1.2-3.4); Lymphocytes % (auto) 27.5 %; Mean Corpuscular Hemoglobin 24.5 pg (25-34); Mean Corpuscular Hgb Conc 30.3 g/dL (32-36); Mean Corpuscular Volume 80.7 fL (80-100); Monocytes # (auto) 0.59 K/uL (0.11-0.59); Monocytes % (auto) 6.3 %; Neutrophils # (auto) 5.74 K/uL (1.4-6.5); Neutrophils % (auto) 61.7 %; Platelet Count 361 K/uL (130-400); RDW Coefficient of Variation 17.5 % (11.5-14.5); RDW Standard Deviation 52.3 fL (36.4-46.3); Red Blood Count 3.68 M/uL (4.2-5.4); White Blood Count 9.31 K/uL (4.8-10.8)
[2020-02-24] MEDS: busPIRone 15 MG TAB PO SCH (08:11)
[2020-02-24] MEDS: ESCITALOPRAM OXALATE 20 MG TAB PO SCH (08:15)
[2020-02-24] MEDS: FERROUS SULFATE 325 MG TAB PO SCH (08:15)
[2020-02-24] MEDS: CLOPIDOGREL BISULFATE 75 MG TAB PO SCH (08:15)
[2020-02-24] MEDS: MAGNESIUM OXIDE 400 MG TAB PO SCH (08:15)
[2020-02-24] MEDS: lisinopril 5 MG TAB PO SCH (08:16)
[2020-02-24] MEDS: METOPROLOL SUCC 25MG EXT REL TAB PO SCH (08:16)
[2020-02-24] MEDS: GABAPENTIN 300 MG CAP PO SCH (08:16)
[2020-02-24] MEDS: PANTOprazole 40 MG TAB PO SCH (08:16)
[2020-02-24] MEDS: ASPIRIN 81 MG ECTAB PO SCH (08:17)
[2020-02-24 08:20] LABS: Albumin Level 2.6 gm/dl (3.4-5.0); BUN Creatinine Ratio 11.8 (10-20); Calcium 8.4 mg/dl (8.5-10.1); Creatinine Clr Calc Pharmacy 89.3 ml/min; Est GFR (African American) 93.9; Potassium 4.5 mmol/L (3.5-5.1)
[2020-02-24] MEDS: levETIRAcetam 500 MG TAB PO SCH (08:22)
[2020-02-24 08:23] LABS: Albumin Globulin Ratio 0.7 (0.9-2); Bilirubin,Total 0.5 mg/dl (0.2-1); Globulin 3.8 gm/dl (2.5-4.0); Total Protein 6.4 gm/dl (6.4-8.2)
[2020-02-24] MEDS: INSULIN ASPART 100 UNITS/ML 3 ML PEN SC SCH (08:24)
[2020-02-24] MEDS: BUPRENORPHINE/NALOXONE 8/2 MG TAB SL SCH (08:33)
--- NOTE | 2020-02-24 10:18 | Cardiology Progress Note ---
Date of Service February 24, 2020 Assessment & Plan (1) Acute coronary syndrome: -culprit lesion was in the mid right PDA. -a 2.25 x 12 mm Santsoh ROJAS deployed at that site by Dr. Hay. -continue dual anti-platelet therapy for at least 1 year. -the patient requests follow-up with Dr. Paresh Gonzales. (2) Coronary artery disease: -coronary anatomy as described below. -ROJAS placed in the mid right PDA yesterday. -patent stents within the LCx and ramus intermedius. -continue aspirin, Plavix, atorvastatin, metoprolol succinate, and lisinopril. (3) Chronic heart failure with preserved ejection fraction (HFpEF): -compensated at this time. (4) Aortic stenosis: -mild aortic stenosis and aortic insufficiency on echocardiogram earlier this month. Admission and Anticipated Discharge Date Admission Date: February 23, 2020 Subjective The patient is resting comfortably in the bedside chair without complaints of chest pain or dyspnea. She is anxious for hospital discharge. Physical Exam Physical Exam: In general well-developed well-nourished white female no acute distress. HEENT exam is negative. Neck is supple with full carotid upstrokes. No obvious bruits or transmitted murmurs. Jugular venous pressure is flat at 90. Cardiovascular exam reveals a regular rhythm with distant heart sounds. There is a 2/6 crescendo decrescendo systolic murmur heard loudest at the base. No diastolic murmurs. Lungs note scattered wheezes and rales. Abdomen is obese without bruits. Extremities reveal intact radial artery pulses bilaterally. Right wrist has a dry dressing and is without bruits. There is trace pretibial and pedal edema. Results & Data ([facility]) Vital Signs (Past 12 Hours) Vital Signs Temp Pulse Pulse Resp BP Pulse Ox 02/24/20 07:35 37.0 C 81 20 101/66 98 02/24/20 07:12 72 02/24/20 04:37 36.6 C 77 16 99/59 L 96 02/23/20 23:58 36.7 C 72 18 110/74 95 02/23/20 23:55 83 Laboratory Results CBC notes hemoglobin 9.0, hematocrit 29.7, white count 9.3, and platelet count [id number]. Electrolytes note a sodium of 135, potassium 4.5, chloride 106, bicarb 23, BUN 10, creatinine 0.88, glucose of 151. Diagnostic Findings Cardiac catheterization noted a co dominant system. Normal LM, 30-40% mLAD, 40% pLCx, 20% mLCx, and patent stents in the left PDA. Right coronary noted a 20% mRCS, 20% dRCA, 90% mid right PDA, and a 70% distal right PDA. Proximal ramus intermedius with 30% stenosis, patent mid ramus intermedius stent. A 2.25 x 12 Melrude ROJAS was placed in the mid right PDA. EKG notes normal sinus rhythm with an inferior T-wave abnormality and nonspecific T-wave abnormality in the anterolateral leads. loss control engineer noted 1 brief episode of nonsustained ventricular tachycardia (7 beats in length). PG Care Time/CCT Total # of Minutes Spent Total Time Spent with Patient: Total time spent is greater than 50% in coordination of care (as documented) at patient's floor/unit and/or counseling patient: Coding Level of Care Code 94897 Subseq Hosp Care Lvl 3 Diagnoses Acute coronary syndrome I24.9 Coronary artery disease I25.10 Chronic heart failure with preserved ejection fraction (HFpEF) I50.32 Aortic stenosis I35.0
--- NOTE | 2020-02-24 10:48 | Discharge Summary ---
Date of Service February 24, 2020 Admission HPI Per Admitting Provider This is a 40-year-old female who has significant past medical history of CAD with history of ROJAS to left circumflex and ramus intermedius 10/2016, HTN, HLD, mild aortic stenosis and aortic insufficiency, insulin-dependent T2DM, COPD, seizure disorder, hepatitis C, GERD, history of IVDA on Suboxone, tobacco abuse who presents to ED secondary to chest pain and shortness of breath that started at approximately 12 PM. Of significance patient recently hospitalized 02/08- secondary to acute respiratory failure secondary to bronchitis and rhinovirus. She was further diagnosed with asthma exacerbation and acute on chronic CHF. She was discharged on oral Levaquin as well as steroid taper. She is finished her antibiotic and steroid therapy but continues to use nebulizer approximately 4 times daily. She continues to have dry cough but feels it is improving. She was doing well and overall feels she, "did too much after discharge." She admits the last 2 days to having intermittent substernal chest discomfort. Chest discomfort would come on with rest or minimal exertion. Symptoms would resolve within approximately 5 minutes with rest. Chest pain will be substernal with radiation to the bilateral scapular region. She was walking with her niece today when approximately at 12 PM she got severe, 10/10, substernal chest discomfort that radiated to her bilateral scapular region. She sat down and rested immediately which improved pain. She admits to associated diaphoresis and nausea. She felt similar to the prior time when she required stenting, but back pain was new. Niece called EMS and she received a sublingual nitro and full-strength aspirin. This did improve her symptoms. She also received additional sublingual nitro in ED and her pain is currently 1/10. She is concerned secondary to the back discomfort which is new to her. Otherwise she currently feels comfortable. She currently denies any fever, chills, sweats, lightheadedness, dizziness, shortness breath at rest, cough hemoptysis, nausea, vomiting, abdominal pain, change in bowel or urinary habits. She admits to be compliant with her medications specifically aspirin, Plavix, lisinopril in addition to metoprolol since discharge. In ED she remained hemodynamically stable. She was mildly tachycardic. EKG revealed new T wave inversions inferior laterally compared to prior EKG on 02/10. Lab work notable for WBC 14.5 3K, H&H 9.5 and 30.6, platelet 382, potassium 3.5, BUN 14, creatinine 1.03, mag 1.4, glucose 116, albumin 2.7. Chest x-ray with cardiomegaly with moderately improved pulmonary edema. Principal Diagnosis s/p cardiac catheterization and placement of drug-eluting stent (on this hospital stay, PCI of mid right PDA with single drug-eluting stent on 01/28) Coronary artery disease Hypomagnesemia Type 2 diabetes mellitus without group home current of insulin Abnormal CTA (CT angiogram) scan Leukocytosis Discharge Exam Constitutional cooperative and comfortable Eyes PERRL, conjunctivae normal, anicteric sclerae ENMT external ear and nose normal, oropharynx normal Neck normal visual inspection Respiratory normal respiratory effort, lungs clear to auscultation Cardiovascular Rate/Rhythm: regular rate Gastrointestinal (Abdomen) normal bowel sounds, soft, nontender, no hepatosplenomegaly Musculoskeletal Head/Neck/Chest: normocephalic and head atraumatic Neurologic PERRL, EOMI, accommodation nl, no face palsy, no dysarthria CN's II-XI intact bilaterally and moves all extremities Psychiatric A+Ox3, euthymic affect Discharge Data Allergies Allergy/AdvReac Type Severity Reaction Status Date / Time lidocaine Allergy Intermediate HIVES Verified 02/22/20 14:31 procaine Allergy Intermediate HIVES Verified 02/22/20 14:31 Penicillins Allergy Mild HAD NO Verified 02/22/20 14:31 PROBLEM WITH ZOSYN strawberry Allergy Mild HIVES Verified 02/22/20 14:31 cephalexin AdvReac Intermediate YEAST Verified 02/22/20 14:31 INFECTIONS egg AdvReac Intermediate GI UPSET Verified 02/22/20 14:31 tramadol AdvReac Intermediate SEIZURES Verified 02/22/20 14:31 azithromycin AdvReac Mild STOMACH Verified 02/22/20 14:31 PAIN Consultations 02/22/20 14:04 ED Decision to Admit Stat 02/22/20 14:58 Consult Cardiology Routine 02/23/20 13:58 Consult Cardiac Rehabilitation Routine 02/24/20 07:32 Burn CD for patient Stat Procedures Performed Operation Date: 02/23/20 11:15 Actual Procedures p Drug Eluting Stent SGl Vessel - Anderson Hay MD s Cineradiography w/Routine Exam - Anderson Hay MD s Cath, Left with Cors and Vent - Mohit Girard MD s Injection / Imaging Aorta - Mohit Girard MD Ordered Studies 02/22/20 14:48 CT angio chest PE protocol Stat 02/23/20 10:17 CL Cath Imgs for PACS use only Routine Hospital Course (1) Atypical chest pain: -as per 02/22/2020 admission History and Physical "This is a 40-year-old female who has significant past medical history of CAD with history of ROJAS to left circumflex and ramus intermedius 10/2016, HTN, HLD, mild aortic stenosis and aortic insufficiency, insulin-dependent T2DM, COPD, seizure disorder, hepatitis C, GERD, history of IVDA on Suboxone, tobacco abuse who presents to ED secondary to chest pain and shortness of breath that started at approximately 12 PM" -In ED she remained hemodynamically stable. She was mildly tachycardic. -EKG revealed new T wave inversions inferior laterally compared to prior EKG on 02/10. (2) Acute electrocardiogram changes: -on presentation as above (3) Coronary artery disease: -history of Drug eleuting stents to Lcx and ramus intermedius 10/2016, Initially followed [facility] cardiology but then [place] [facility] [place] was [place] -on aspirin, Plavix, statin, metoprolol and lisinopril -patient was started on heparin drip in case of acute coronary syndrome after 02/22/2020 CTA did not find dissection or pulmonary embolism -troponins negative -[facility] cardiology suggested possibly that symptoms were from angina. patient will get cardiac cath on 02/23/2020 as per [facility] cardiology discussion with patient and patient's nurse (patient therefor upgraded from observation to full admission) patient has completed 2 midnight stay on this hospitalization 02/22/2020 midnight, 02/23/2020 midnight -discharge pharmacy [facility] [address] [facility], [place], [place] [address] includes aspirin 81 mg daily and clopidogrel (Plavix) 75 mg daily (will need to be on these medications for at least 1 year); also the patient's acid reflux medication of esomeprazole replaced with famotidine to prevent drug interaction with clopidogrel, magnesium 400 mg daily for 10 days patient had cardiac catheterization and placement of drug-eluting stent on this hospital stay, PCI of mid right PDA with single drug-eluting stent on 02/23/2020) Dr. Goodman advised patient to follow up with [facility] Cardiology clinic scheduled primary care doctor appointment: 02/29/2020 11:20 AM Provider DO Liliya An [facility] cardiology clinic appointment Niru Oral 03/16/2020 at 3 PM Practice [facility] (4) Chronic heart failure with preserved ejection fraction (HFpEF): -echocardiogram 02/09/2020 EF 55-60% with mild aortic valve stenosis/aortic regurg -02/23/2020 echocardiogram completed and "more hyperdynamic" but otherwise appears unchanged -on metoprolol and lisinopril (5) Hypomagnesemia: -02/22/2020 serum magnesium 1.4, patient was given mag sulfate 1g IV x 2 and started oral repletion 400mg mag ox daily -serum magnesium 1.8 on 02/23/2020, additional magnesium supplements ordered (6) Diabetes mellitus, type 2: 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 Cardiomegaly with moderately improved aeration of the lungs. There are continued findings of interstitial pulmonary edema with decreased amount of bilateral airspace and groundglass opacities suggestive of resolving alveolar pulmonary edema versus a nonspecific pneumonitis. 2. There are a few subpleural nodular opacities as above including a 9 mm nodular opacity of the left lower lobe which appears new from prior, likely infectious or inflammatory. As a precautionary measure a one month follow-up study may be considered. 3. Decreased adenopathy of the chest, likely reactive. 4. No evidence of pulmonary thromboembolic disease. (10) Leukocytosis: Leukocytosis: -no fever on this presentation -patient is former smoker -however, patient appears to have chronically elevated WBC because on [facility] records -monitor the WBCs, patient may need hematology clinic referral or pulmonary clinic referral -patient discharged with CD of lung imaging from 02/09/2020 admission and on this hospital admission -discharge WBC is 9.31 K/ul on 02/24/2020 which is a first normalized WBC at [facility] (11) GERD (gastroesophageal reflux disease): -continue as famotidine on discharge (12) Hx of drug abuse: -continue suboxone therapy (13) DVT prophylaxis: -on IV heparin Total Time Total Time Spent Total Time Spent (In Minutes): 40 minutes Total Time Includes: Examination of the Patient, Discharge Planning, Medication Reconciliation and Communication With Other Providers Discharge Plan Discharge Items Patient Disposition: Home - Self-Care Reason For Visit: CHEST PAIN, ECG CHANGES Discharge Diagnosis: s/p cardiac catheterization and placement of drug-eluting stent (on this hospital stay, PCI of mid right PDA with single drug-eluting stent on 02/23/2020) Coronary artery disease Hypomagnesemia Type 2 diabetes mellitus without group home current of insulin Abnormal CTA (CT angiogram) scan Leukocytosis Condition on Discharge: Good Activity: Per Instructions section Weightbearing: Full weightbearing Non-emergency contact: Primary Care Provider and Fingernail Former Call non-emergency contact if: you have any medication questions Follow-up/Referrals: Irvin Iverson MD [Primary Care Provider] - Diet: Carb Consistent or DM2 and Heart Healthy Addtl Attending Provider Instructions: discharge pharmacy [address] [place] [address] includes aspirin 81 mg daily and clopidogrel (Plavix) 75 mg daily (will need to be on these medications for at least 1 year); also the patient's acid reflux medication of esomeprazole replaced with famotidine to prevent drug interaction with clopidogrel, magnesium 400 mg daily for 10 days patient had cardiac catheterization and placement of drug-eluting stent on this hospital stay, PCI of mid right PDA with single drug-eluting stent on 02/23/2020) Dr. Goodman advised patient to follow up with [facility] Cardiology clinic scheduled primary care doctor appointment: 02/29/2020 11:20 AM Provider DO Liliya An [facility] Practice [facility] cardiology clinic appointment Niru Mixon 03/16/2020 at 3 PM Practice [facility] Provider Instructions: Abnormal CTA (CT angiogram) scan -recent hospitalization secondary to asthma exacerbation secondary to rhinovirus and she had completed prednisone course as well as antibiotic Levaquin -the Chest CTA on 02/22/2020 with abnormal imaging findings of nodular opacities 1. Cardiomegaly with moderately improved aeration of the lungs. There are continued findings of interstitial pulmonary edema with decreased amount of bilateral airspace and groundglass opacities suggestive of resolving alveolar pulmonary edema versus a nonspecific pneumonitis. 2. There are a few subpleural nodular opacities as above including a 9 mm nodular opacity of the left lower lobe which appears new from prior, likely infectious or inflammatory. As a precautionary measure a one month follow-up study may be considered. 3. Decreased adenopathy of the chest, likely reactive. 4. No evidence of pulmonary thromboembolic disease. Leukocytosis: -no fever on this presentation -however, patient appears to have chronically elevated WBC because on [facility] records -monitor the WBCs, patient may need hematology clinic referral or pulmonary clinic referral -patient discharged with CD of lung imaging from 02/09/2020 admission and on this hospital admission -discharge WBC is 9.31 K/ul on 02/24/2020 which is a first normalized WBC at [facility] Pending Studies at Discharge: No Stand-Alone Forms: My [facility], Smoking Cessation Medications and DC Order Prescriptions: New clopidogrel 75 mg Tablet 75 mg PO QAM 30 Days Qty: 30 RF: 2 aspirin 81 mg Tablet,Delayed Release (Dr/Ec) 81 mg PO QAM 30 Days Qty: 30 RF: 2 magnesium oxide 400 mg (241.3 mg magnesium) Tablet 400 mg PO QAM 10 Days Qty: 10 RF: 0 famotidine 20 mg tablet 20 mg PO DAILY 30 Days Qty: 30 RF: 0 Continued levetiracetam [Keppra] 500 mg Tablet 500 mg PO BID RF: 0 trazodone 100 mg tablet 250 mg PO HS RF: 0 escitalopram oxalate [Lexapro] 20 mg tablet 20 mg PO QAM RF: 0 metformin 1,000 mg Tablet 1,000 mg PO BID RF: 0 atorvastatin 80 mg Tablet 80 mg PO HS RF: 0 Lantus Solostar U-100 Insulin 100 unit/mL (3 mL) insulin pen 10 unit SUBCUT HS RF: 0 Victoza 2-Zac 0.6 mg/0.1 mL (18 mg/3 mL) pen injector 1.2 mg SUBCUT QAM RF: 0 albuterol sulfate 2.5 mg /3 mL (0.083 %) solution for nebulization 2.5 mg inhalation Q4 PRN (Reason: Shortness Of Breath Or Wheezing) RF: 0 clopidogrel [Plavix] 75 mg tablet 75 mg PO QAM RF: 0 nitroglycerin [Nitrostat] 0.4 mg Tablet, Sublingual 0.4 mg sublingual UD PRN (Reason: Chest Pain) RF: 0 albuterol sulfate 90 mcg/actuation HFA aerosol inhaler 2 puff INHALATION Q4 PRN (Reason: Shortness Of Breath Or Wheezing) RF: 0 buspirone 15 mg tablet 15 mg PO BID RF: 0 medroxyprogesterone [Depo-Provera] 150 mg/mL Syringe 150 mg IM Q3M RF: 0 buprenorphine-naloxone [Suboxone] 8-2 mg film 0.5 film sublingual TID RF: 0 ferrous sulfate 325 mg (65 mg iron) Tablet 325 mg PO DAILY RF: 0 gabapentin 300 mg capsule 300 mg PO TID RF: 0 metoprolol succinate 25 mg Tablet Extended Release 24 Hr 25 mg PO QAM 30 Days Qty: 30 RF: 0 glipizide 10 mg tablet 10 mg PO DAILYBD RF: 0 aspirin 81 mg tablet,delayed release (DR/EC) 81 mg PO QAM RF: 0 lisinopril 5 mg Tablet 5 mg PO QAM RF: 0 Discontinued potassium chloride [Klor-Con M20] 20 mEq tablet,ER particles/crystals 20 meq PO QPM RF: 0 esomeprazole magnesium 40 mg capsule,delayed release(DR/EC) 40 mg PO DAILY RF: 0 Discharge Orders: Discharge Order (Routine); Ordered 02/24/20 Ordered By: Orlin Connolly/Other Patient Handouts: Healthy Meals for Diabetes, Eating Heart-Healthy Foods Admission Data Admit Date/Time: 02/23/20 09:32 Attending Provider: Orlin Green Admit Provider: Suleiman More Primary Care Provider: Irvin Iverson Providers: Suleiman More ; Mohit Girard
--- NOTE | 2020-02-25 06:10 | Electrocardiogram Report ---
Test Reason : Blood Pressure : / mmHG Vent. Rate : 075 BPM Atrial Rate : 075 BPM P-R Int : 114 ms QRS Dur : 090 ms QT Int : 386 ms P-R-T Axes : 040 062 -21 degrees QTc Int : 431 ms Normal sinus rhythm Cannot rule out Anterior infarct , age undetermined T wave abnormality, consider inferior ischemia Abnormal ECG When compared with ECG of 23-FEB-2020 06:27, Nonspecific T wave abnormality now evident in Anterolateral leads Confirmed by Mohit Girard ([id number]) on 02/25/2020 6:09:30 AM Referred By: REFERRED SELF Confirmed By:Mohit Girard
== END 2020-02-24 11:15 | disposition home or self-care (01) | DRG 247 ==
LOC: ED 12:57 → 2S 12:57 → SUATTDRO 14:24 → 2S 15:25
PROC: CLB.IPA (2020-02-23 11:15)

== ENCOUNTER 2020-05-23 20:36 | Inpatient (IN) ==
--- NOTE | 2020-05-23 20:59 | Emergency Department Note ---
History of Present Illness General Chief complaint: Shortness of Breath/Dyspnea Stated complaint: SHORT OF BREATH Time Seen by Provider: 05/23/20 20:38 Source: patient Mode of arrival: EMS Limitations: no limitations History of Present Illness Provider complaint: Shortness of breath Maximum Pain Intensity: 0 This is a 40-year-old female who presents to the ED with a chief complaint of shortness of breath started tonight. The patient reports a chronic unchanged cough. She states that she feels a little like she could have bronchitis. She does report some swelling in her legs but takes Lasix for this. She did take Lasix a couple of days ago and this improved her leg swelling. The patient does report that she has oxygen at home. She uses oxygen with ambulation because she desaturates. She states that they have attributed this to her COPD and asthma. She denies any chest pains. No fevers. She does have a temperature of 99.9. Pulse ox was noted to be 84% on room air with minimal exertion. At rest on the bed she is 92%. Home Medications Medication Instructions Recorded Confirmed Type escitalopram oxalate [Lexapro] 20 mg PO QAM 05/30/18 02/22/20 History levetiracetam [Keppra] 500 mg PO BID 05/30/18 02/22/20 History trazodone 250 mg PO HS 05/30/18 02/22/20 History aspirin 81 mg PO QAM 09/08/18 02/22/20 History lisinopril 5 mg PO QAM 09/08/18 02/22/20 History metformin 1,000 mg PO BID 12/19/18 02/22/20 History atorvastatin 80 mg PO HS 12/28/18 02/22/20 History Lantus Solostar U-100 Insulin 10 unit SUBCUT 05/20/19 02/22/20 History Victoza 2-Zac 1.2 mg SUBCUT QA 06/08/19 02/22/20 History albuterol sulfate 2 puff INHALATION Q4 PRN 11/06/19 02/22/20 History albuterol sulfate 2.5 mg INHALATION Q4 PRN 11/06/19 02/22/20 History buprenorphine-naloxone [Suboxone] 0.5 film SUBLINGUAL TID 11/06/19 02/22/20 History buspirone 15 mg PO BID 11/06/19 02/22/20 History clopidogrel [Plavix] 75 mg PO QAM 11/06/19 02/22/20 History medroxyprogesterone [Depo-Provera] 150 mg IM Q3M 11/06/19 02/22/20 History nitroglycerin [Nitrostat] 0.4 mg SUBLINGUAL UD PRN 11/06/19 02/22/20 History ferrous sulfate 325 mg PO DAILY 02/09/20 02/22/20 History gabapentin 300 mg PO TID 02/09/20 02/22/20 History glipizide 10 mg PO DAILYBD 02/22/20 02/22/20 History aspirin 81 mg PO QAM 30 Days #30 tab 02/24/20 Rx clopidogrel 75 mg PO QAM 30 Days #30 tab 02/24/20 Rx Allergies Allergy/AdvReac Type Severity Reaction Status Date / Time lidocaine Allergy Intermediate HIVES Verified 02/22/20 14:31 procaine Allergy Intermediate HIVES Verified 02/22/20 14:31 Penicillins Allergy Mild HAD NO Verified 02/22/20 14:31 PROBLEM WITH ZOSYN strawberry Allergy Mild HIVES Verified 02/22/20 14:31 cephalexin AdvReac Intermediate YEAST Verified 02/22/20 14:31 INFECTIONS egg AdvReac Intermediate GI UPSET Verified 02/22/20 14:31 tramadol AdvReac Intermediate SEIZURES Verified 02/22/20 14:31 azithromycin AdvReac Mild STOMACH Verified 02/22/20 14:31 PAIN Past Med/Surg History Medical History Acute electrocardiogram changes Aortic regurgitation Aortic stenosis Asthma Atypical chest pain Chronic diastolic CHF (congestive heart failure) Coronary artery disease Depression Diabetes mellitus, type 2 Dyslipidemia Encounter for smoking cessation counseling GERD (gastroesophageal reflux disease) Hepatitis C "Antibiotic screen positive, quantitative RNA positive 08/30/17" Hepatosplenomegaly History of drug abuse History of DVT (deep vein thrombosis) History of renal calculi Hypertension Hypocalcemia Seizure disorder Surgical History History of cardiac cath 2017- 1 ROJAS to ramus, 2 ROJAS to L circumflex. 40-50% plaque to LAD 2018- distal disease (80%) within PDA History of carpal tunnel surgery History of lumbar spinal fusion Hx of tonsillectomy S/P coronary artery stent placement Status post cholecystectomy Family History Other Diabetes Heart disease Hypertension Kidney stones Seizures Social History Smoking Status: Current every day smoker Tobacco Type: Cigarettes Cigarettes Per Day: 10; Number of Years Since Quit: 31; Second Hand Exposure: No; Hx Alcohol Use: No Hx Substance Use: No Preferred Language: [place] Communication Ability: Effective Visual Impairment: No Limitations Hearing Ability: Normal Product Marketing Coordinator Required: No Beliefs That Will Affect Care: None marital status: Single Current Living Situation: Other Current Living Situation Comment: LIVES WITH ROOMMATES Feels Safe at Home: Yes Assistive Devices: None Review of Systems A total of 10 systems reviewed and were otherwise negative Physical Exam Vital Signs Vital Signs - 24 hr 05/23/20 20:45 05/23/20 20:46 05/23/20 21:21 Temperature 37.7 C H Temperature Source Oral Pulse Rate 124 H Respiratory Rate 26 H Respiratory Effort / Characteristics Non-Labored Spontaneous Spontaneous Spontaneous Labored Short of Breath SOB on Exertion Respiratory Depth Normal Normal Deep Respiratory Pattern Regular Apnea Tachypnea Blood Pressure 130/79 Blood Pressure Mean 96 Blood Pressure Position Sitting Pulse Oximetry 84 L 88 L Oxygen Delivery Method Room Air Room Air Oxygen Flow Rate Sepsis Recent Fever Within 48 Hours Yes Sepsis New/Unexplained Change in Mental Status No Sepsis Action Taken by Nursing Physician Notified Oxygen Flow Rate - Titration 4 Pulse Oximetry Post Tiitration 95 05/23/20 21:26 Temperature Temperature Source Pulse Rate Respiratory Rate Respiratory Effort / Characteristics Respiratory Depth Respiratory Pattern Blood Pressure Blood Pressure Mean Blood Pressure Position Pulse Oximetry 88 L Oxygen Delivery Method Room Air Oxygen Flow Rate 0 Sepsis Recent Fever Within 48 Hours Sepsis New/Unexplained Change in Mental Status Sepsis Action Taken by Nursing Oxygen Flow Rate - Titration 2 Pulse Oximetry Post Tiitration 93 CONSTITUTIONAL/VITAL SIGNS: Reviewed / noted above. GENERAL: Non-toxic in appearance. INTEGUMENTARY: Warm, dry, and [place]. HEAD: Normocephalic. EYES: without scleral icterus or trauma. ENT/OROPHARYNX: clear and moist. LYMPHADENOPATHY/NECK: Is supple without lymphadenopathy or meningismus. RESPIRATORY: Lungs reveal some slight crackles in the bases and equal. CARDIOVASCULAR: Regular rate and rhythm. GI/ABDOMEN: Soft and nontender. No organomegaly or pulsatile mass. No rebound or guarding. Normal bowel sounds. EXTREMITIES: Warm and well perfused. BACK: No CVA tenderness. NEUROLOGICAL: Intact without focal deficits. PSYCHIATRIC: normal affect. MUSCULOSKELETAL: Normally developed with good muscle tone. TRIAGE NURSING DOCUMENTATION REVIEWED. Medical Decision Making Differential Diagnosis The differential was considered includes acute myocardial infarction, acute cor onary syndrome, myocarditis, pericarditis, pericardial effusions /tamponad, esophageal perforation, pulmonary embolism, pneumonia, pneumothorax, cardiomyopathy, congestive heart, anemia , COPD/asthma exacerbation. Medical Records Attestation: I reviewed the patient's medical records. Home Medications Current Medication List: was personally reviewed by me Laboratory Data Attestation: I reviewed the patient's lab results. Result diagrams: 05/23/20 21:00 05/23/20 21:00 Lab Results 05/23/20 05/23/20 05/23/20 Range/Units 20:58 21:00 21:00 WBC 18.26 H (4.8-10.8) K/uL RBC 3.49 L (4.2-5.4) M/uL Hgb 8.3 L (12.0-16.0) g/dL Hct 26.9 L (37-47) % MCV 77.1 L (80-100) fL MCH 23.8 L (25-34) pg MCHC 30.9 L (32-36) g/dL RDW Std Deviation 54.9 H (36.4-46.3) fL RDW Coeff of Hannah 19.7 H (11.5-14.5) % Plt Count 406 H (130-400) K/uL MPV 9.4 (7.4-10.4) fL Immature Gran % (Auto) 0.8 % Neut % (Auto) 78.3 % Lymph % (Auto) 15.7 % Will % (Auto) 3.6 % Eos % (Auto) 1.5 % Baso % (Auto) 0.1 % Neut # (Auto) 14.29 H (1.4-6.5) K/uL Lymph # (Auto) 2.87 (1.2-3.4) K/uL Will # (Auto) 0.65 H (0.11-0.59) K/uL Eos # (Auto) 0.28 (0-0.5) K/uL Baso # (Auto) 0.02 (0-0.2) K/uL Immature Gran # (Auto) 0.15 H (0.00-0.02) K/uL Absolute Nucleated RBC 0.06 H (0-0) K/uL Nucleated RBC % (auto) 0.4 % PT Cancelled INR Cancelled APTT Cancelled PTT Ratio Cancelled D-Dimer Cancelled Sodium (136-145) mmol/L Potassium (3.5-5.1) mmol/L Chloride (98-107) mmol/L Carbon Dioxide (21-32) mmol/L Anion Gap (3-11) BUN (7-18) mg/dl Creatinine (0.6-1.2) mg/dl Est Cr Clr Drug Dosing ml/min Est GFR ( Amer) Est GFR (Non-Af Amer) BUN/Creatinine Ratio (10-20) Glucose (70-99) mg/dl Calcium (8.5-10.1) mg/dl Total Bilirubin (0.2-1) mg/dl AST (15-37) U/L ALT (12-78) U/L Alkaline Phosphatase (45-117) U/L Troponin I (0-0.045) ng/ml NT-Pro-B Natriuret Pep (0-450) pg/ml Total Protein (6.4-8.2) gm/dl Albumin (3.4-5.0) gm/dl Globulin (2.5-4.0) gm/dl Albumin/Globulin Ratio (0.9-2) Urine Color Yellow Urine Appearance Clear (Clear) Urine pH 6.0 (4.5-7.5) Ur Specific [place] 1.013 (1.000-1.030) Urine Protein Negative (Negative) Urine Glucose (UA) Negative (Negative) Urine Ketones Negative (Negative) Urine Blood Negative (Negative) Urine Nitrite Positive A (Negative) Urine Bilirubin Negative (Negative) Urine Urobilinogen Positive H (Negative) Ur Leukocyte Esterase 1+ H (Negative) Urine WBC (Auto) 10-30 H (0-5) /hpf Urine RBC (Auto) 0-4 (0-4) /hpf U Hyaline Cast (Auto) 0 (0-5) /lpf U Epithel Cells (Auto) 0-5 (0-5) /lpf Urine Bacteria (Auto) 1+ H (Negative) COVID-19 Eval Order SARS-CoV-2 (PCR) (Negative) Influenza Type A (PCR) (Neg) Influenza Type B (PCR) (Neg) RSV (RT-PCR) (Neg) 05/23/20 05/23/20 05/23/20 Range/Units 21:00 21:15 21:15 WBC (4.8-10.8) K/uL RBC (4.2-5.4) M/uL Hgb (12.0-16.0) g/dL Hct (37-47) % MCV (80-100) fL MCH (25-34) pg MCHC (32-36) g/dL RDW Std Deviation (36.4-46.3) fL RDW Coeff of Hannah (11.5-14.5) % Plt Count (130-400) K/uL MPV (7.4-10.4) fL Immature Gran % (Auto) % Neut % (Auto) % Lymph % (Auto) % Will % (Auto) % Eos % (Auto) % Baso % (Auto) % Neut # (Auto) (1.4-6.5) K/uL Lymph # (Auto) (1.2-3.4) K/uL Will # (Auto) (0.11-0.59) K/uL Eos # (Auto) (0-0.5) K/uL Baso # (Auto) (0-0.2) K/uL Immature Gran # (Auto) (0.00-0.02) K/uL Absolute Nucleated RBC (0-0) K/uL Nucleated RBC % (auto) % PT INR APTT PTT Ratio D-Dimer Sodium 139 (136-145) mmol/L Potassium 3.1 L (3.5-5.1) mmol/L Chloride 107 (98-107) mmol/L Carbon Dioxide 22 (21-32) mmol/L Anion Gap 10.0 (3-11) BUN 15 (7-18) mg/dl Creatinine 1.04 (0.6-1.2) mg/dl Est Cr Clr Drug Dosing 75.5 ml/min Est GFR ( Amer) 76.7 Est GFR (Non-Af Amer) 66.2 BUN/Creatinine Ratio 14.1 (10-20) Glucose 160 H (70-99) mg/dl Calcium 8.6 (8.5-10.1) mg/dl Total Bilirubin 0.4 (0.2-1) mg/dl AST 24 (15-37) U/L ALT 18 (12-78) U/L Alkaline Phosphatase 99 (45-117) U/L Troponin I 0.118 H* (0-0.045) ng/ml NT-Pro-B Natriuret Pep 5391 H (0-450) pg/ml Total Protein 7.4 (6.4-8.2) gm/dl Albumin 2.7 L (3.4-5.0) gm/dl Globulin 4.7 H (2.5-4.0) gm/dl Albumin/Globulin Ratio 0.6 L (0.9-2) Urine Color Urine Appearance (Clear) Urine pH (4.5-7.5) Ur Specific [place] (1.000-1.030) Urine Protein (Negative) Urine Glucose (UA) (Negative) Urine Ketones (Negative) Urine Blood (Negative) Urine Nitrite (Negative) Urine Bilirubin (Negative) Urine Urobilinogen (Negative) Ur Leukocyte Esterase (Negative) Urine WBC (Auto) (0-5) /hpf Urine RBC (Auto) (0-4) /hpf U Hyaline Cast (Auto) (0-5) /lpf U Epithel Cells (Auto) (0-5) /lpf Urine Bacteria (Auto) (Negative) COVID-19 Eval Order [facility]Rsv at [facility] SARS-CoV-2 (PCR) NEGATIVE (Negative) Influenza Type A (PCR) Negative (Neg) Influenza Type B (PCR) Negative (Neg) RSV (RT-PCR) Negative (Neg) Imaging Data Attestation: I personally reviewed and interpreted this imaging study as follows: My Impression: Chest x-ray: Provide interpretation there are increased vascular markings suggestive of congestive heart failure mild pulmonary edema. ECG Data Attestation: I personally reviewed and interpreted this ECG as follows: Indication: + SOB/dyspnea Rate (beats per minute): 112 Rhythm: + sinus tachycardia ECG ST segments: + T-wave inversions (Lateral) Change: the following changes noted (T wave inversions and ST depressions are new in the lateral leads compared to previous EKG) MDM Narrative Patient presents with shortness of breath at rest. She has a history of asthma COPD. She is does have home oxygen but uses it with exertion only. Denies any new cough. She does report some swelling in her legs but takes Lasix for this. Her vital signs showed 84% on room air after moving from the litter to the bed. She had an ox saturation of 92% on room air at rest on the bed. Exam reveals some mild increased work of breathing initially but this seemed to relax as she was sitting on the bed. The patient's white blood cell count is elevated 18.26. She does have findings suggesting a urinary tract infection. She is anemic with a hemoglobin of 8.3. This is slightly below her baseline. Chemistry panel was unremarkable. Troponin was elevated. EKG showed a sinus tach with some T wave inversions that appear to be new compared to previous EKG. This could be related to the patient's hypoxia as well as her chronic underlying cardiac disease. The patient's BNP and chest x-ray suggest some pulmonary edema and congestive heart failure. The patient was given IV Rocephin for the UTI. She was given IV Lasix for her heart failure. She will be seen by the hospitalist for further evaluation and care. Impression & Plan Hypoxia, Acute CHF (congestive heart failure), UTI (urinary tract infection), Elevated troponin Discharge Plan Visit Data Chief Complaint: Shortness of Breath/Dyspnea Stated Complaint: SHORT OF BREATH ED Provider: Johan Viveros Discharge Problem: Hypoxia, Acute CHF (congestive heart failure), UTI (urinary tract infection), Elevated troponin Forms Stand Alone Forms: [facility] Prescriptions Prescriptions: No Action levetiracetam [Keppra] 500 mg Tablet 500 mg PO BID RF: 0 trazodone 100 mg tablet 250 mg PO HS RF: 0 escitalopram oxalate [Lexapro] 20 mg tablet 20 mg PO QAM RF: 0 metformin 1,000 mg Tablet 1,000 mg PO BID RF: 0 atorvastatin 80 mg Tablet 80 mg PO HS RF: 0 Lantus Solostar U-100 Insulin 100 unit/mL (3 mL) insulin pen 10 unit SUBCUT HS RF: 0 Victoza 2-Zac 0.6 mg/0.1 mL (18 mg/3 mL) pen injector 1.2 mg SUBCUT QAM RF: 0 albuterol sulfate 2.5 mg /3 mL (0.083 %) solution for nebulization 2.5 mg inhalation Q4 PRN (Reason: Shortness Of Breath Or Wheezing) RF: 0 clopidogrel [Plavix] 75 mg tablet 75 mg PO QAM RF: 0 nitroglycerin [Nitrostat] 0.4 mg Tablet, Sublingual 0.4 mg sublingual UD PRN (Reason: Chest Pain) RF: 0 albuterol sulfate 90 mcg/actuation HFA aerosol inhaler 2 puff INHALATION Q4 PRN (Reason: Shortness Of Breath Or Wheezing) RF: 0 buspirone 15 mg tablet 15 mg PO BID RF: 0 medroxyprogesterone [Depo-Provera] 150 mg/mL Syringe 150 mg IM Q3M RF: 0 buprenorphine-naloxone [Suboxone] 8-2 mg film 0.5 film sublingual TID RF: 0 ferrous sulfate 325 mg (65 mg iron) Tablet 325 mg PO DAILY RF: 0 gabapentin 300 mg capsule 300 mg PO TID RF: 0 glipizide 10 mg tablet 10 mg PO DAILYBD RF: 0 clopidogrel 75 mg Tablet 75 mg PO QAM 30 Days Qty: 30 RF: 2 aspirin 81 mg Tablet,Delayed Release (Dr/Ec) 81 mg PO QAM 30 Days Qty: 30 RF: 2 aspirin 81 mg tablet,delayed release (DR/EC) 81 mg PO QAM RF: 0 lisinopril 5 mg Tablet 5 mg PO QAM RF: 0
[2020-05-23 21:22] LABS: Basophils # (auto) 0.02 K/uL (0-0.2); Basophils % (auto) 0.1 %; Eosinophils # (auto) 0.28 K/uL (0-0.5); Eosinophils % (auto) 1.5 %; Hematocrit (blood only) 26.9 % (37-47); Hemoglobin 8.3 g/dL (12.0-16.0); Immature Granulocytes # (auto) 0.15 K/uL (0.00-0.02); Immature Granulocytes % (auto) 0.8 %; Lymphocytes # (auto) 2.87 K/uL (1.2-3.4); Lymphocytes % (auto) 15.7 %; Mean Corpuscular Hemoglobin 23.8 pg (25-34); Mean Corpuscular Hgb Conc 30.9 g/dL (32-36); Mean Corpuscular Volume 77.1 fL (80-100); Mean Platelet Volume 9.4 fL (7.4-10.4); Monocytes # (auto) 0.65 K/uL (0.11-0.59); Monocytes % (auto) 3.6 %; Neutrophils # (auto) 14.29 K/uL (1.4-6.5); Neutrophils % (auto) 78.3 %; Nucleated RBC # (auto) 0.06 K/uL (0-0); Nucleated RBC % (auto) 0.4 %; Platelet Count 406 K/uL (130-400); RDW Coefficient of Variation 19.7 % (11.5-14.5); RDW Standard Deviation 54.9 fL (36.4-46.3); Red Blood Count 3.49 M/uL (4.2-5.4); White Blood Count 18.26 K/uL (4.8-10.8)
[2020-05-23 21:33] LABS: Appearance Urine Clear (Clear); Bacteria Urine Automated 1+ (Negative); Bilirubin Urine Negative (Negative); Blood Urine Negative (Negative); Cast Urine Automated 0 /lpf (0-5); Color Urine Yellow; Epithelial Cell Urine Auto 0-5 /lpf (0-5); Glucose Urine UA Negative (Negative); Ketones Urine Negative (Negative); Leukocyte Esterase Urine 1+ (Negative); Nitrite Urine Positive (Negative); Protein Urine Negative (Negative); RBC Urine Automated 0-4 /hpf (0-4); Specific Gravity Urine 1.013 (1.000-1.030); Urobilinogen Urine Positive (Negative)
[2020-05-23 21:43] LABS: Albumin Level 2.7 gm/dl (3.4-5.0); BUN Creatinine Ratio 14.1 (10-20); Calcium 8.6 mg/dl (8.5-10.1); Creatinine Clr Calc Pharmacy 75.5 ml/min; Est GFR (African American) 76.7; Est GFR (Non-African American) 66.2; Potassium 3.1 mmol/L (3.5-5.1)
[2020-05-23 21:59] LABS: Albumin Globulin Ratio 0.6 (0.9-2); Bilirubin,Total 0.4 mg/dl (0.2-1); Globulin 4.7 gm/dl (2.5-4.0); Total Protein 7.4 gm/dl (6.4-8.2); Troponin I 0.118 ng/ml (0-0.045)
[2020-05-23 22:03] LABS: Influenza A virus by PCR Negative (Neg); Influenza B virus by PCR Negative (Neg); RSV by PCR Negative (Neg); SARS CoV2 RNA(COVID-19) InHosp NEGATIVE (Negative)
[2020-05-23] MEDS ORDERED: FUROSEMIDE 40 MG/4 ML VIAL IV STA (22:15)
[2020-05-23] MEDS ORDERED: cefTRIAXone SODIUM 1,000 MG/50 ML BAG IV STA (22:17)
[2020-05-23 22:44] LABS: INR 1.1 (0.9-1.1); Partial Thromboplastin Time 26.8 Seconds (21.0-31.0)
[2020-05-23 22:50] LABS: D Dimer 2170 ug/L FEU (0-500)
[2020-05-23] MEDS ORDERED: OPTIRAY 320 125ml IV ONE (23:44)
[2020-05-24] MEDS ORDERED: ALBUTEROL HFA 8 GM INHALER INH PRN (00:21)
[2020-05-24] MEDS ORDERED: POLYETHYLENE (MIRALAX) 17 GM PACK PO PRN (00:21)
[2020-05-24] MEDS ORDERED: ALBUTEROL 0.083% NEBU SOLN 3 ML VIAL INH PRN (00:21)
[2020-05-24] MEDS ORDERED: POTASSIUM CHLORIDE CRTAB 20 MEQ TABCR PO STA (00:21)
[2020-05-24] MEDS ORDERED: ONDANSETRON INJ 2 MG/ML 2 ML VIAL IV PRN (00:21)
[2020-05-24] MEDS ORDERED: NITROGLYCERIN SL 0.4 MG/TAB TAB SL PRN (00:21)
[2020-05-24] MEDS: levETIRAcetam 500 MG TAB PO SCH ×3 (01:17→20:18)
[2020-05-24] MEDS: INSULIN ASPART 100 UNITS/ML 3 ML PEN SC SCH ×5 (01:24→20:20)
[2020-05-24] MEDS: ACETAMINOPHEN 325 MG TAB PO PRN ×3 (01:51→20:16)
[2020-05-24] MEDS ORDERED: DEXTROSE 50% 50 ML SYRINGE IV PRN (02:00)
[2020-05-24] MEDS ORDERED: GLUCAGON FOR INJ 1 MG VIAL IM PRN (02:00)
[2020-05-24] MEDS ORDERED: GLUCOSE 40% GEL 15 GM TUBE PO PRN (02:00)
[2020-05-24] MEDS ORDERED: GLUCOSE 10 TABS/TUBE PO PRN (02:00)
[2020-05-24] MEDS ORDERED: CARBOHYDRATES FOR HYPOGLYCEMIA PO PRN (02:00)
--- NOTE | 2020-05-24 02:03 | History and Physical Report ---
DATE OF ADMISSION: 05/23/2020 CHIEF COMPLAINT: Shortness of breath. HISTORY OF PRESENT ILLNESS: This is a 40-year-old female with past medical history significant for type 2 diabetes, premature coronary artery disease status post drug-eluting stent to left circumflex and ramus intermedius in October 2016 and also drug-eluting stent to mid right PDA on 02/23/2020, history of chronic diastolic congestive heart failure, history of mild aortic stenosis and aortic insufficiency, COPD, seizure disorder, hepatitis C, GERD, history of IV drug abuse, on Suboxone, tobacco abuse, history of iron deficiency anemia, depression, who presents with shortness of breath. The patient uses at home oxygen while ambulating. Since yesterday she is having shortness of breath. She has chronic cough with some yellowish white phlegm and today SOB got worse and she called EMS. When EMS arrived, she was saturating in 80s. In the ER, when she was transferred from the litter to the bed, she was saturating at 84%, but later says she was saturating at 92%. On nasal cannula 1 L, she is saturating fine and she has mild temp spike and white count and also urinary tract infection. D-dimer is elevated. The patient is going for CTA of chest,Chest x-ray showed pulmonary congestion. Received a dose of Lasix in ER.And also troponin 0.11. The patient denies any chest pain currently, no nausea, no vomiting, no abdominal pain, no diarrhea, no constipation, no blood in the stool or black stools, no hematuria, no burning micturition. Currently, no headache, no blurred vision, no earache, no runny nose, no sore throat, no loss of sense of smell or taste. No dysphagia. Appetite is okay. Lives with her boyfriend and no contact with COVID patients. She has swelling in the lower extremities. She states that the feeling was a little worse, a few days back, and she took an extra dose of Lasix and that seemed to help. ALLERGIES: AZITHROMYCIN, ENSURE, AND NOVOCAIN. PAST MEDICAL HISTORY: As mentioned above. PAST SURGICAL HISTORY: Status post cardiac stents, carpal tunnel surgery, dental surgery, incision and drainage, lumbar disc arthroplasty, tonsillectomy, cholecystectomy, spinal fusion surgery, knee surgery. MEDICATIONS: The patient is on albuterol sulfate 2.5 inhalation q. 4 hours p.r.n., albuterol nebulization p.r.n., aspirin 81 mg p.o. daily, atorvastatin 80 mg p.o. at bedtime, Suboxone 0.5 sublingual t.i.d., buspirone 15 mg p.o. b.i.d., Plavix 75 mg p.o. daily, Lexapro 20 mg p.o. a.m., Flovent HFA 2 puffs inhalation b.i.d., gabapentin 300 mg p.o. t.i.d., glipizide 10 mg p.o. daily with breakfast, Keppra 500 mg p.o. b.i.d., lisinopril 2.5 mg p.o. a.m., Depo-Provera 150 mg IM every 3 months, metformin 1000 mg p.o. b.i.d., metoprolol succinate 25 mg p.o. daily, Nitrostat 0.4 mg sublingual p.r.n., trazodone 250 mg p.o. at bedtime. FAMILY HISTORY: Significant for mother has diabetes, bypass surgery, hypertension, born with only one kidney; brother has Crohn's disease; aunt has diabetes. SOCIAL HISTORY: Lives with her boyfriend. Smokes 0.4 packs a day for last 19 years. No alcohol use. Used cocaine, methamphetamine, and oxycodone in the past, currently on methadone. REVIEW OF SYSTEMS: As per HPI. Rest of the review of systems negative. PHYSICAL EXAMINATION: GENERAL: The patient is obese, not in acute distress. VITAL SIGNS: Temperature 37.7, pulse 104, respiratory rate 25, blood pressure 111/73, oxygen 95% on 1 L, was 84% to 88% on room air. HEENT: Pupils equal, round, and reactive to light. Oral mucosa moist. NECK: No neck masses. No JVD seen. CARDIOVASCULAR: S1, S2 heard, regular rate and rhythm, no murmur, no gallop. RESPIRATORY SYSTEM: Normal AP diameter. No accessory muscle use. LUNGS: Diminished breath sounds. Mild bibasilar crackles. ABDOMEN: Soft, bowel sounds present, nontender, no distention. CENTRAL NERVOUS SYSTEM: Cranial nerves II-XII grossly intact, nonfocal. EXTREMITIES: Mild pedal edema present. No erythema seen. LABORATORY DATA: WBC 18.2, hemoglobin 8.3, hematocrit 26.9, platelets 406. PT 12, INR 1.1, APTT 26.8. D-dimer 2170. Sodium 139, potassium 3.1, chloride 107, CO2 of 22, BUN 16, creatinine 1.06, serum glucose 168, calcium 8.6, total bilirubin 0.4, AST 24, ALT 18, alkaline phosphatase 99. Troponin 1 of 0.118, BNP 5391. Urinalysis positive for nitrite and leukocyte esterase and +1 bacteria. SARS-CoV-2 PCR negative. Influenza A and B PCR negative, RSV PCR negative. IMAGING DATA: Chest x-ray: Pulmonary congestion. EKG: Sinus tachycardia at a rate of 112, ST-T abnormality seen in inferior and anterolateral leads. ASSESSMENT AND PLAN: This is a 40-year-old female who presents with shortness of breath. 1. Shortness of breath, most likely acute on chronic diastolic congestive heart failure. The patient has some aortic insufficiency with mild aortic stenosis. The patient is on Lasix 20 mg daily. Received IV 40mg of Lasix in the ER, will place on IV 40 mg Lasix daily. Follow serial enzymes, echocardiogram. Monitor on tele and consult cardiology in the a.m. 2. Mild elevation of troponin, most likely demand ischemia: The patient is asymptomatic. Follow serial enzymes, echocardiogram. Monitor in the tele. 3. Urinary tract infection: Leukocytosis. Starting on Rocephin. We will follow the cultures. 4. Elevated D-dimer: The patient going for CTA of the chest, we will follow the results. 5. Hypokalemia: We will replace. Has been recently started on potassium supplement. Needs to monitor the potassium. 6. Premature coronary artery disease with a drug-eluting stent to left circumflex and ramus intermedius in October 2016 and a single drug-eluting stent to PDA on 02/23/2020. Continue her home aspirin, Plavix, statin, and beta vijay. 7. Diabetes: Hold home p.o. medication. Placed on insulin sliding scale and Lantus 5 units daily and monitor the blood sugar. Currently n.p.o. 8. Depression: Continue Lexapro. 9. History of chronic obstructive pulmonary disease and asthma: Continue her Flovent and home inhalers and nebs. 10. History of seizure: Continue Keppra. 11. Hypertension: Continue lisinopril and Toprol-XL. We will monitor the blood pressure. 12. History of hepatitis C. 13. History of drug abuse: Currently on Suboxone. 14. Hyperlipidemia: On statin. 15. Deep venous thrombosis prophylaxis, Lovenox. DISPOSITION: Closely monitor in the tele floor. Level 1 full code. Expect to discharge home and follow with family doctor and cardiology. Addendum: added Doxycycline for possible atypical pneumonitis on ct scan. MTDD
[2020-05-24] MEDS ORDERED: GABAPENTIN 300 MG CAP PO STA (02:33)
[2020-05-24 06:11] LABS: Basophils # (auto) 0.04 K/uL (0-0.2); Basophils % (auto) 0.3 %; Eosinophils # (auto) 0.43 K/uL (0-0.5); Eosinophils % (auto) 2.7 %; Hematocrit (blood only) 26.4 % (37-47); Hemoglobin 8.2 g/dL (12.0-16.0); Immature Granulocytes # (auto) 0.09 K/uL (0.00-0.02); Immature Granulocytes % (auto) 0.6 %; Lymphocytes # (auto) 2.62 K/uL (1.2-3.4); Lymphocytes % (auto) 16.7 %; Mean Corpuscular Hemoglobin 23.8 pg (25-34); Mean Corpuscular Hgb Conc 31.1 g/dL (32-36); Mean Corpuscular Volume 76.5 fL (80-100); Mean Platelet Volume 9.4 fL (7.4-10.4); Monocytes # (auto) 0.71 K/uL (0.11-0.59); Monocytes % (auto) 4.5 %; Neutrophils # (auto) 11.83 K/uL (1.4-6.5); Neutrophils % (auto) 75.2 %; Nucleated RBC # (auto) 0.06 K/uL (0-0); Nucleated RBC % (auto) 0.4 %; Platelet Count 416 K/uL (130-400); RDW Coefficient of Variation 19.6 % (11.5-14.5); RDW Standard Deviation 54.9 fL (36.4-46.3); Red Blood Count 3.45 M/uL (4.2-5.4); White Blood Count 15.72 K/uL (4.8-10.8)
[2020-05-24 06:39] LABS: Calcium 8.7 mg/dl (8.5-10.1); Creatinine Clr Calc Pharmacy 83.6 ml/min; Est GFR (African American) 86.7; Est GFR (Non-African American) 74.8; Magnesium 1.8 mg/dl (1.8-2.4); Potassium 3.7 mmol/L (3.5-5.1)
[2020-05-24 06:43] LABS: Troponin I 0.111 ng/ml (0-0.045)
--- NOTE | 2020-05-24 07:25 | XRay Report ---
SINGLE VIEW CHEST CLINICAL HISTORY: Dyspnea. FINDINGS: An AP, portable, upright chest radiograph is compared to chest x-ray and chest CT dated . The heart is enlarged and there is pulmonary vascular congestion. There are hazy bilateral i nterstitial airspace opacities. No large pleural effusion is identified. No pneumothorax is seen. The bony thorax is grossly intact. IMPRESSION: 1. Cardiomegaly with evidence of congestive failure. 2. There are hazy bilateral interstitial airspace opacities. This could represent pulmonary edema and /or a multifocal infectious/inflammatory pneumonitis. Clinical correlation will be required and radio graphic follow-up to resolution is recommended. ACT 112: Positive. There are findings on this exam that require communication between the performing entity and the patient following Patient Test Result Information Act ([place] Act 112) guidelines. Electronically signed by: Ja Villanueva M.D. 05/24/2020 7:23 AM
[2020-05-24 07:26] LABS: Estimated Average Glucose 143 mg/dl; Hemoglobin A1C 6.6 % (4.5-5.6)
--- NOTE | 2020-05-24 07:31 | CT Scan Report ---
CT ANGIOGRAM OF THE CHEST CLINICAL HISTORY: Shortness of breath. Possible acute pulmonary embolism COMPARISON STUDY: 02/22/2020, chest x-ray dated 05/23/2020 TECHNIQUE: Following the IV administration of 107 mL of Optiray-320, CT angiogram of the thorax was p erformed from the thoracic inlet to the lung bases utilizing the pulmonary embolus protocol. Images a re reviewed in the axial, sagittal, and coronal planes. IV contrast was administered without complica tion. MIP imaging was performed. A dose lowering technique was utilized adhering to the principles o f ALARA. CT DOSE: 738.70 mGy.cm FINDINGS: There is a multinodular thyroid gland. The largest nodule measures 15 mm. There is slight increase in the mediastinal and hilar lymphadenopathy. There was no evidence of thoracic aortic dilatation. There were no pulmonary artery filling defects to indicate acute pulmonary embolism. No pleural effusions are visualized. There is progressive diffuse groundglass attenuation with a mosaic distribution. More focal nodular a irspace opacities are present within the superior segment the right lower lobe. There is interlobular septal edema. IMPRESSION: 1. Persistent multinodular thyroid gland 2. No evidence of acute pulmonary embolism 3. Progressive mediastinal and hilar lymphadenopathy 4. Diffuse groundglass pulmonary opacities with mosaic attenuation. 5. More focal nodular airspace opacities the superior segment the right lower lobe. 6. Diagnostic considerations include among others pulmonary edema, atypical/viral infection, or hyper sensitivity pneumonitis. Clinical and imaging follow-up will be necessary. ACT 112: Negative or not required by law. Electronically signed by: Jayro Duke M.D. 05/24/2020 7:30 AM
[2020-05-24] MEDS: cefTRIAXone SODIUM 2,000 MG in DEXTROSE 5% 50 ML IV SCH (08:21)
[2020-05-24] MEDS: GABAPENTIN 300 MG CAP PO SCH ×3 (08:28→20:19)
[2020-05-24] MEDS: METOPROLOL SUCC 25MG EXT REL TAB PO SCH (08:28)
[2020-05-24] MEDS: CLOPIDOGREL BISULFATE 75 MG TAB PO SCH (08:28)
[2020-05-24] MEDS: lisinopril 2.5 MG TAB PO SCH (08:28)
[2020-05-24] MEDS: ESCITALOPRAM OXALATE 20 MG TAB PO SCH (08:28)
[2020-05-24] MEDS: FLUTICASONE FUROATE 200MCG 14 PUFFS/INHALER INH SCH (08:29)
[2020-05-24] MEDS: ASPIRIN 81 MG ECTAB PO SCH (08:29)
[2020-05-24] MEDS: busPIRone 15 MG TAB PO SCH ×2 (08:29→20:18)
[2020-05-24] MEDS: ENOXAPARIN INJ 40 MG/0.4 ML SYR SQ SCH (08:30)
[2020-05-24] MEDS: FUROSEMIDE 40 MG in SYRINGE 0 ML IV SCH (08:30)
[2020-05-24] MEDS: INSULIN GLARGINE SOLOSTAR 100 UNITS/ML 3 ML PEN SC SCH (08:34)
[2020-05-24] MEDS: BUPRENORPHINE/NALOXONE 8/2 MG TAB SL SCH ×3 (08:36→20:15)
[2020-05-24] MEDS: DOXYCYCLINE HYCLATE 100 MG CAP PO SCH ×2 (08:37→21:52)
[2020-05-24] MEDS ORDERED: FUROSEMIDE 40 MG/4 ML VIAL IV SCH (09:00)
[2020-05-24] MEDS ORDERED: Nursing to Pharmacy Communication SCH (09:30)
--- NOTE | 2020-05-24 10:22 | Cardiology Consultation ---
Date of Consultation May 24, 2020 Assessment & Plan (1) Acute on chronic heart failure with preserved ejection fraction (HFpEF): (2) Bronchitis: (3) Hypoxia: (4) UTI (urinary tract infection): (5) Anemia, iron deficiency: (6) Elevated troponin I level: (7) Coronary artery disease: (8) Bicuspid aortic valve: Complex 40-year-old female admitted with multifactorial shortness of breath/hypoxia secondary to acute bronchitis (recent history significant for bronchitis secondary to rhinovirus), and acute decompensated heart failure with preserved ejection fraction. Repeat echocardiogram demonstrates preserved LV function. Bicuspid aortic valve indices unchanged. Recommend continued IV diuretic therapy, Lasix 40 mg daily. Follow daily weight, fluid balance, GFR, and electrolytes. Continue dual antiplatelet therapy uninterrupted with recent percutaneous intervention 01/2020. Antibiotics per internal medicine. In regard to patient's anemia, I have ordered repeat iron studies. Restart iron supplementation in a.m. Consider IV iron infusion during hospitalization jose alfredo tavares review of lab results. Thank you for allow me to participate in the care of your patient. History of Present Illness Reason for Consultation: SOB, CHF Requesting Physician: Dr. Heard Attending Physician: Cande Heard MD History of Present Illness 40-year-old female presents to the emergency department with 72 hours of progressive shortness of breath. Mild hypoxia on room air noted in ED at rest. Reports chronic cough with mild sputum production. No fever, chills, or sick contacts. History of bronchitis secondary to rhinovirus in January 2020. Denies recurrent chest discomfort. Recent history significant for PCI of the RCA PDA 02/23/2020 in the setting of unstable angina. Denies recurrent anginal symptoms. Note dysuria earlier this week. Drank cranberry juice at home to relieve symptoms. Urine culture positive for gram-negative bacilli. Denies signs/symptoms of GI/ blood loss. Serum hemoglobin reduced from baseline. No recent iron studies on file. Tolerating medications listed below including dual antiplatelet therapy. Treated with empiric antibiotics and intravenous Lasix on admission. Fluid balance negative approximately 1 L since admission. Respiratory status improved. Telemetry demonstrates sinus rhythm. Allergies Allergy/AdvReac Type Severity Reaction Status Date / Time lidocaine Allergy Intermediate HIVES Verified 05/23/20 22:57 procaine Allergy Intermediate HIVES Verified 05/23/20 22:57 Penicillins Allergy Mild HAD NO Verified 05/23/20 22:57 PROBLEM WITH ZOSYN strawberry Allergy Mild HIVES Verified 05/23/20 22:57 cephalexin AdvReac Intermediate YEAST Verified 05/23/20 22:57 INFECTIONS egg AdvReac Intermediate GI UPSET Verified 05/23/20 22:57 tramadol AdvReac Intermediate SEIZURES Verified 05/23/20 22:57 azithromycin AdvReac Mild STOMACH Verified 05/23/20 22:57 PAIN Home Medications Medication Instructions Recorded Confirmed Type escitalopram oxalate [Lexapro] 20 mg PO QAM 05/30/18 05/23/20 History levetiracetam [Keppra] 500 mg PO BID 05/30/18 05/23/20 History trazodone 250 mg PO HS 05/30/18 05/23/20 History lisinopril 2.5 mg PO QAM 09/08/18 05/23/20 History metformin 1,000 mg PO BID 12/19/18 05/23/20 History atorvastatin 80 mg PO HS 12/28/18 05/23/20 History albuterol sulfate 2 puff INHALATION Q4 PRN 11/06/19 05/23/20 History albuterol sulfate 2.5 mg INHALATION Q4 PRN 11/06/19 05/23/20 History buprenorphine-naloxone [Suboxone] 0.5 ea SUBLINGUAL TID 11/06/19 05/23/20 History buspirone 15 mg PO BID 11/06/19 05/23/20 History medroxyprogesterone [Depo-Provera] 150 mg IM Q3M 11/06/19 05/23/20 History nitroglycerin [Nitrostat] 0.4 mg SUBLINGUAL UD PRN 11/06/19 05/23/20 History gabapentin 300 mg PO TID 02/09/20 05/23/20 History glipizide 10 mg PO DAILYBD 02/22/20 05/23/20 History aspirin 81 mg PO QAM 30 Days #30 tab 02/24/20 05/23/20 Rx clopidogrel 75 mg PO QAM 30 Days #30 tab 02/24/20 05/23/20 Rx Flovent HFA 2 puff INHALATION BID 05/23/20 05/23/20 History metoprolol succinate 25 mg PO DAILY 01/25/21 01/25/21 History doxycycline hyclate 100 mg PO BID #10 cap 05/25/20 Rx ferrous sulfate 325 mg PO QDB #30 tab 05/25/20 Rx furosemide [Lasix] 40 mg PO DAILY #60 tab 05/25/20 Rx potassium chloride [Klor-Con] 40 meq PO DAILY #60 ea 05/25/20 Rx Patient History Medical History Acute electrocardiogram changes Aortic regurgitation Aortic stenosis Asthma Atypical chest pain Chronic diastolic CHF (congestive heart failure) Coronary artery disease Depression Diabetes mellitus, type 2 Dyslipidemia Encounter for smoking cessation counseling GERD (gastroesophageal reflux disease) Hepatitis C "Antibiotic screen positive, quantitative RNA positive 08/30/17" Hepatosplenomegaly History of drug abuse History of DVT (deep vein thrombosis) History of renal calculi Hypertension Hypocalcemia Seizure disorder Surgical History History of cardiac cath 2017- 1 ROJAS to ramus, 2 ROJAS to L circumflex. 40-50% plaque to LAD 2018- distal disease (80%) within PDA History of carpal tunnel surgery History of lumbar spinal fusion Hx of tonsillectomy S/P coronary artery stent placement Status post cholecystectomy Family History Other Diabetes Heart disease Hypertension Kidney stones Seizures Social History Smoking Status: Current every day smoker Tobacco Type: Cigarettes Cigarettes Per Day: 10; Number of Years Since Quit: 31; Second Hand Exposure: Yes; Do You Dip or Chew Tobacco: No; Tobacco Cessation Education Requested by Patient: No Hx Alcohol Use: No Hx Substance Use: No Preferred Language: Norwegian Communication Ability: Effective Visual Impairment: No Limitations Hearing Ability: Normal Ekg Monitor Tech Required: No Beliefs That Will Affect Care: None marital status: Single Current Living Situation: Significant Other Current Living Situation Comment: LIVES WITH ROOMMATES Other Information That Helps Us Care for You: No Feels Safe at Home: Yes Safety Concerns: Feels Safe At This Time Assistive Devices: Oxygen - Continuous Review of Systems Review of Systems: All systems reviewed & are unremarkable except as noted in HPI & below Physical Exam Constitutional: + ill appearing; no acute distress Respiratory: no respiratory distress and no labored breathing Auscultation: + rhonchi and + wheezes Cardiovascular: Rate/Rhythm: regular rate and regular rhythm Heart Sounds: normal S1 and + murmur (2-3/6 midsystolic murmur heard best at the right second intercostal space ) Vessels: + carotid bruit (+ Radiating aortic valve systolic murmur) and radial pulses present; no JVD Extremities: + edema (Trace bilateral pedal and ankle edema) Gastrointestinal (Abdomen): Inspection/Auscultation: abdomen normal to inspection and normal bowel sounds; abdomen not distended Percussion/Palpation: abdomen soft; abdomen nontender, no guarding and abdomen not rigid Neurologic: CN's II-XI intact bilaterally and moves all extremities Motor/Sensory: no tremor Psychiatric: A+Ox3, euthymic affect Results & Data ([facility]) Vital Signs (Past 12 Hours) Vital Signs Temp Pulse Pulse Resp BP BP Pulse Ox 05/24/20 08:06 36.5 C 82 18 136/63 96 05/24/20 04:43 36.4 C L 82 18 110/69 92 05/24/20 00:21 36.7 C 100 H 18 119/70 93 05/23/20 23:20 104 H 25 H 95 05/23/20 22:40 106 H 22 97 05/23/20 22:31 115 H 24 111/73 94 Pulse Ox 05/24/20 08:06 05/24/20 04:43 05/24/20 00:21 93 05/23/20 23:20 05/23/20 22:40 05/23/20 22:31 ECG Rate (beats per minute): Sinus rhythm with diffuse ST and T wave abnormality
[2020-05-24 10:42] LABS: Ferritin 93.5 ng/ml (8-388)
--- NOTE | 2020-05-24 11:21 | Electrocardiogram Report ---
Test Reason : Blood Pressure : / mmHG Vent. Rate : 112 BPM Atrial Rate : 112 BPM P-R Int : 134 ms QRS Dur : 084 ms QT Int : 316 ms P-R-T Axes : 054 044 248 degrees QTc Int : 431 ms Sinus tachycardia Nonspecific ST abnormality Abnormal ECG When compared with ECG of 24-FEB-2020 06:40, Vent. rate has increased BY [address] now depressed in Lateral leads Inverted T waves have replaced nonspecific T wave abnormality in Lateral leads Confirmed by Liu Harrington ([id number]) on 05/24/2020 11:21:20 AM Referred By: REFERRED SELF Confirmed By:Angus Harrington
--- NOTE | 2020-05-24 11:27 | Electrocardiogram Report ---
Test Reason : Blood Pressure : / mmHG Vent. Rate : 082 BPM Atrial Rate : 082 BPM P-R Int : 126 ms QRS Dur : 094 ms QT Int : 400 ms P-R-T Axes : 073 081 -32 degrees QTc Int : 468 ms Normal sinus rhythm Nonspecific ST and T wave abnormality Abnormal ECG When compared with ECG of 23-MAY-2020 21:13, (unconfirmed) ST no longer depressed in Lateral leads T wave inversion no longer evident in Anterolateral leads Confirmed by Liu Harrington ([id number]) on 05/24/2020 11:27:20 AM Referred By: REFERRED SELF Confirmed By:Angus Harrington
--- NOTE | 2020-05-24 17:14 | Hospitalist Progress Note ---
Date of Service May 24, 2020 Assessment & Plan (1) Acute on chronic heart failure with preserved ejection fraction (HFpEF): presented with SOB,FINN decompensated CHF appreciate input from cardiology started on Iv lasix (2) Bronchitis: (3) Hypoxia: due to decompensated CHF (4) UTI (urinary tract infection): (5) Anemia, iron deficiency: (6) Elevated troponin I level: (7) Coronary artery disease: (8) Bicuspid aortic valve: Complex 40-year-old female admitted with multifactorial shortness of breath/hypoxia secondary to acute bronchitis and acute decompensated heart failure with preserved ejection fraction. symptoms improved with Intravenous Lasix monitor vol status hx of CAD s/p PTCA no chest pain , SOB due to decompensated CHF . Continue dual antiplatelet therapy uninterrupted with recent percutaneous intervention 01/2020. Full code disposition : expected to be discharged home when medicallly stable Admission and Anticipated Discharge Date Admission Date: May 23, 2020 Subjective Patient seen and examined the bedside. Respiratory status improved with diuretics, Patient denies chest pain or shortness of breath today. No orthopnea, PND, or edema. Review of Systems Review of Systems: All systems reviewed & are unremarkable except as noted in Subjective Physical Exam Constitutional: WD/WN, vitals as above Eyes: PERRL, conjunctivae normal, anicteric sclerae ENMT: external ear and nose normal, oropharynx normal Neck: trachea midline, no thyromegaly Respiratory: + cough Auscultation: + diminished lung sounds Cardiovascular: RRR, no murmur, no edema Gastrointestinal (Abdomen): normal bowel sounds, soft, nontender, no hepatosplenomegaly Musculoskeletal: no cyanosis or clubbing, extremities motor strength 5/5 Skin: no rashes, warm and dry Neurologic: PERRL, EOMI, accommodation nl, no face palsy, no dysarthria Psychiatric: A+Ox3, euthymic affect Results & Data Results & Data ([facility]) Vital Signs (Past 12 Hours) Vital Signs Temp Pulse Resp BP Pulse Ox 05/24/20 14:56 36.2 C L 77 20 118/80 96 05/24/20 11:37 36.8 C 76 20 151/63 H 98 05/24/20 08:06 36.5 C 82 18 136/63 96
[2020-05-24] MEDS ORDERED: ATORVASTATIN 40 MG TAB PO SCH (21:00)
[2020-05-24] MEDS ORDERED: FLUCONAZOLE 50 MG TAB PO ONE (21:00)
[2020-05-24] MEDS ORDERED: traZODone HCL 50 MG TAB PO SCH (21:00)
[2020-05-25] MEDS ORDERED: FERROUS SULFATE 325 MG TAB PO SCH (07:30)
[2020-05-25] MEDS: DOXYCYCLINE HYCLATE 100 MG CAP PO SCH (08:23)
[2020-05-25] MEDS: INSULIN ASPART 100 UNITS/ML 3 ML PEN SC SCH (08:23)
[2020-05-25] MEDS: GABAPENTIN 300 MG CAP PO SCH (08:24)
[2020-05-25] MEDS: lisinopril 2.5 MG TAB PO SCH (08:24)
[2020-05-25] MEDS: ESCITALOPRAM OXALATE 20 MG TAB PO SCH (08:24)
[2020-05-25] MEDS: busPIRone 15 MG TAB PO SCH (08:24)
[2020-05-25] MEDS: METOPROLOL SUCC 25MG EXT REL TAB PO SCH (08:24)
[2020-05-25] MEDS: ASPIRIN 81 MG ECTAB PO SCH (08:25)
[2020-05-25] MEDS: ENOXAPARIN INJ 40 MG/0.4 ML SYR SQ SCH (08:25)
[2020-05-25] MEDS: levETIRAcetam 500 MG TAB PO SCH (08:25)
[2020-05-25] MEDS: CLOPIDOGREL BISULFATE 75 MG TAB PO SCH (08:25)
[2020-05-25] MEDS: FLUTICASONE FUROATE 200MCG 14 PUFFS/INHALER INH SCH (08:26)
[2020-05-25] MEDS: FUROSEMIDE 40 MG in SYRINGE 0 ML IV SCH (08:26)
[2020-05-25] MEDS: INSULIN GLARGINE SOLOSTAR 100 UNITS/ML 3 ML PEN SC SCH (08:27)
[2020-05-25] MEDS: cefTRIAXone SODIUM 2,000 MG in DEXTROSE 5% 50 ML IV SCH (08:31)
[2020-05-25] MEDS: BUPRENORPHINE/NALOXONE 8/2 MG TAB SL SCH (08:31)
--- NOTE | 2020-05-25 09:59 | Electrocardiogram Report ---
Test Reason : Blood Pressure : / mmHG Vent. Rate : 070 BPM Atrial Rate : 070 BPM P-R Int : 130 ms QRS Dur : 102 ms QT Int : 446 ms P-R-T Axes : 067 074 022 degrees QTc Int : 481 ms Normal sinus rhythm Prolonged QT Abnormal ECG When compared with ECG of 24-MAY-2020 06:56, No significant change was found Confirmed by Liu Harrington ([id number]) on 05/25/2020 9:58:42 AM Referred By: REFERRED SELF Confirmed By:Angus Harrington
[2020-05-25 10:06] LABS: Basophils # (auto) 0.03 K/uL (0-0.2); Basophils % (auto) 0.2 %; Eosinophils # (auto) 0.61 K/uL (0-0.5); Eosinophils % (auto) 4.3 %; Hematocrit (blood only) 28.3 % (37-47); Hemoglobin 8.6 g/dL (12.0-16.0); Immature Granulocytes # (auto) 0.21 K/uL (0.00-0.02); Immature Granulocytes % (auto) 1.5 %; Lymphocytes # (auto) 2.86 K/uL (1.2-3.4); Lymphocytes % (auto) 20.1 %; Mean Corpuscular Hemoglobin 23.4 pg (25-34); Mean Corpuscular Hgb Conc 30.4 g/dL (32-36); Mean Corpuscular Volume 77.1 fL (80-100); Mean Platelet Volume 9.6 fL (7.4-10.4); Monocytes # (auto) 0.72 K/uL (0.11-0.59); Neutrophils # (auto) 9.83 K/uL (1.4-6.5); Neutrophils % (auto) 68.9 %; Nucleated RBC # (auto) 0.06 K/uL (0-0); Nucleated RBC % (auto) 0.4 %; Platelet Count 435 K/uL (130-400); RDW Coefficient of Variation 19.6 % (11.5-14.5); RDW Standard Deviation 55.1 fL (36.4-46.3); Red Blood Count 3.67 M/uL (4.2-5.4); White Blood Count 14.26 K/uL (4.8-10.8)
[2020-05-25 10:32] LABS: Albumin Level 2.8 gm/dl (3.4-5.0); BUN Creatinine Ratio 15.6 (10-20); Calcium 8.8 mg/dl (8.5-10.1); Creatinine Clr Calc Pharmacy 84.8 ml/min; Est GFR (Non-African American) 76.8; Magnesium 1.8 mg/dl (1.8-2.4); Potassium 3.8 mmol/L (3.5-5.1)
[2020-05-25 10:35] LABS: Albumin Globulin Ratio 0.6 (0.9-2); Bilirubin,Total 0.2 mg/dl (0.2-1); Globulin 4.8 gm/dl (2.5-4.0); Total Protein 7.6 gm/dl (6.4-8.2)
--- NOTE | 2020-05-25 11:30 | Cardiology Progress Note ---
Date of Service May 25, 2020 Assessment & Plan (1) Acute on chronic heart failure with preserved ejection fraction (HFpEF): (2) Bronchitis: (3) Hypoxia: (4) UTI (urinary tract infection): (5) Anemia, iron deficiency: (6) Elevated troponin I level: (7) Coronary artery disease: (8) Bicuspid aortic valve: Complex 40-year-old female admitted with multifactorial shortness of breath/hypoxia secondary to acute bronchitis and acute decompensated heart failure with preserved ejection fraction. Clinically improved with antibiotic and diuretic therapy. Volume status improved. Intravenous Lasix may be discontinued. Resume Lasix 40 mg p.o. daily. Discussed importance of complianc e with current medical therapies including iron supplementation in the outpatient setting. Patient voiced understanding. Continue dual antiplatelet therapy uninterrupted with recent percutaneous intervention 01/2020. Antibiotics per internal medicine. Thank you for allow me to participate in the care of your patient. Admission and Anticipated Discharge Date Admission Date: May 23, 2020 Subjective Patient seen and examined the bedside. Respiratory status improved with antibiotics, diuretics, and nebulizer treatments. Patient denies chest pain or shortness of breath today. No orthopnea, PND, or edema. Admits to noncompliance with iron supplementation in the outpatient setting. Denies signs/symptoms of GI/ blood loss. Requesting discharge. Offers no other concerns/complaints at this time. Review of Systems Review of Systems: All systems reviewed & are unremarkable except as noted in Subjective Physical Exam Constitutional: + ill appearing; no acute distress Respiratory: no respiratory distress and no labored breathing Auscultation: + rhonchi and + wheezes (Soft end expiratory) Cardiovascular: Rate/Rhythm: regular rate and regular rhythm Heart Sounds: normal S1 and + murmur (2-3/6 midsystolic murmur heard best at the right second intercostal space ) Vessels: + carotid bruit (+ Radiating aortic valve sy stolic murmur) and radial pulses present; no JVD Extremities: + edema (Trace bilateral pedal and ankle edema) Gastrointestinal (Abdomen): Inspection/Auscultation: abdomen normal to inspection and normal bowel sounds; abdomen not distended Percussion/Palpation: abdomen soft; abdomen nontender, no guarding and abdomen not rigid Neurologic: CN's II-XI intact bilaterally and moves all extremities Motor/Sensory: no tremor Psychiatric: A+Ox3, euthymic affect Results & Data ([facility]) Vital Signs (Past 12 Hours) Vital Signs Temp Pulse Pulse Resp BP BP Pulse Ox 05/25/20 11:20 36.8 C 74 16 115/69 104/68 98 05/25/20 07:54 36.8 C 74 16 115/69 98 05/25/20 03:49 36.5 C 73 18 117/74 94 05/25/20 00:00 71 05/24/20 23:38 36.6 C 90 20 109/67 95
--- NOTE | 2020-05-29 15:51 | Hospitalist Progress Note ---
Date of Service delayed entry date of service 05/25/20 May 29, 2020 Assessment & Plan (1) Acute on chronic heart failure with preserved ejection fraction (HFpEF): ASSESSMENT AND PLAN: This is a 40-year-old female who presents with shortness of breath. 1. Acute on chronic diastolic congestive heart failure Echo: EF 60-65% mild to moderate valvular aortic stenosis [facility] consulted- Dr. Gil given IV Lasix with good response discharge on Lasix 40mg PO daily given CHF instructions ff up with [facility] in 2 week also given course of Doxycycline for possible Acute Bronchitis 2. Mild elevation of troponin, most likely demand ischemia - troponin levels flat 0.9 to 0.1 3. Urinary tract infection with Leukocytosis. - Urine culture: E coli - given IV Ceftriaxone x 2 days 4. Elevated D-dimer CT angio: no PE Abnormal CT chest findings: Please refer to full report in the Ordered Studies section 1. Persistent multinodular thyroid gland 2. No evidence of acute pulmonary embolism 3. Progressive mediastinal and hilar lymphadenopathy 4. Diffuse groundglass pulmonary opacities with mosaic attenuation. 5. More focal nodular airspace opacities the superior segment the right lower lobe. 6. Diagnostic considerations include among others pulmonary edema, atypical/viral infection, or hypersensitivity pneumonitis. Clinical and imaging follow-up will be necessary. -- will need further outpatient work up, management and follow up 5. Hypokalemia replaced 6. Premature coronary artery disease with a drug-eluting stent to left circumflex and ramus intermedius in October 2016 and a single drug-eluting stent to PDA on 02/23/2020. Continue aspirin, Plavix, statin, and beta vijay. 7. Diabetes: resume usual regimen 8. Depression: Continue Lexapro. 9. History of chronic obstructive pulmonary disease and asthma: Continue Flovent and home inhalers and nebs. 10. History of seizure: Continue Keppra. 11. Hypertension: Continue lisinopril and Toprol-XL. 12. History of hepatitis C. 13. History of drug abuse: Currently on Suboxone. 14. Hyperlipidemia: On statin. Admission and Anticipated Discharge Date Admission Date: May 23, 2020 Subjective ff up for Acute on Chronic CHF exacerbation called by RN as patient would like to sign out AMA seen at the bedside, pacing around the room states she feels better denies active shortness of breath, chest pain, palpitations, dizziness no abdominal pain, nausea no problems with urination no other symptoms states the pipe of her basement burst and she urgently needs to come home explained that her work up, and management are not yet completed explained consequences of leaving AMA including worsening of medical condition, organ failure, paralysis, patient verbalized understanding and agreement full discharge instructions give will arrange outpatient ff up soon, emphasized to patient to ff up with PCP FLOR she verbalized understanding and agreement Review of Systems Review of Systems: All systems reviewed & are unremarkable except as noted in Subjective Physical Exam Physical Exam: General- oriented x 3, not in distress, speaks in sentences with no effort or accessory muscle use Eyes- anicteric Neck- no JVD Lungs- diminished but clear breath sounds bilaterally, no rales/wheezes Heart- normal rate, regular rhythm; no murmurs Abdomen- normal bowel sounds, nondistended, soft, nontender Extremities- no pretibial edema, no calf tenderness Neuro- alert, oriented x 3; no gross focal neurologic deficits Skin- warm & dry Results & Data Results & Data ([facility]) Laboratory Results all noted and reviewed
--- NOTE | 2020-05-29 16:01 | Discharge Summary ---
Date of Service May 29, 2020 Admission HPI Per Admitting Provider CHIEF COMPLAINT: Shortness of breath. HISTORY OF PRESENT ILLNESS: This is a 40-year-old female with past medical history significant for type 2 diabetes, premature coronary artery disease status post drug-eluting stent to left circumflex and ramus intermedius in October 2016 and also drug-eluting stent to mid right PDA on 02/23/2020, history of chronic diastolic congestive heart failure, history of mild aortic stenosis and aortic insufficiency, COPD, seizure disorder, hepatitis C, GERD, history of IV drug abuse, on Suboxone, tobacco abuse, history of iron deficiency anemia, depression, who presents with shortness of breath. The patient uses at home oxygen while ambulating. Since yesterday she is having shortness of breath. She has chronic cough with some yellowish white phlegm and today SOB got worse and she called EMS. When EMS arrived, she was saturating in 80s. In the ER, when she was transferred from the litter to the bed, she was saturating at 84%, but later says she was saturating at 92%. On nasal cannula 1 L, she is saturating fine and she has mild temp spike and white count and also urinary tract infection. D-dimer is elevated. The patient is going for CTA of chest,Chest x-ray showed pulmonary congestion. Received a dose of Lasix in ER.And also troponin 0.11. The patient denies any chest pain currently, no nausea, no vomiting, no abdominal pain, no diarrhea, no constipation, no blood in the stool or black stools, no hematuria, no burning micturition. Currently, no headache, no blurred vision, no earache, no runny nose, no sore throat, no loss of sense of smell or taste. No dysphagia. Appetite is okay. Lives with her boyfriend and no contact with COVID patients. She has swelling in the lower extremities. She states that the feeling was a little worse, a few days back, and she took an extra dose of Lasix and that seemed to help. Admission Exam Per Admitting Provider GENERAL: The patient is obese, not in acute distress. VITAL SIGNS: Temperature 37.7, pulse 104, respiratory rate 25, blood pressure 111/73, oxygen 95% on 1 L, was 84% to 88% on room air. HEENT: Pupils equal, round, and reactive to light. Oral mucosa moist. NECK: No neck masses. No JVD seen. CARDIOVASCULAR: S1, S2 heard, regular rate and rhythm, no murmur, no gallop. RESPIRATORY SYSTEM: Normal AP diameter. No accessory muscle use. LUNGS: Diminished breath sounds. Mild bibasilar crackles. ABDOMEN: Soft, bowel sounds present, nontender, no distention. CENTRAL NERVOUS SYSTEM: Cranial nerves II-XII grossly intact, nonfocal. EXTREMITIES: Mild pedal edema present. No erythema seen. Principal Diagnosis ACUTE ON CHRONIC HEART FAILURE WITH PRESERVED EJECTION FRACTION Discharge Exam General- oriented x 3, not in distress, speaks in sentences with no effort or accessory muscle use Eyes- anicteric Neck- no JVD Lungs- diminished but clear breath sounds bilaterally, no rales/wheezes Heart- normal rate, regular rhythm; no murmurs Abdomen- normal bowel sounds, nondistended, soft, nontender Extremities- no pretibial edema, no calf tenderness Neuro- alert, oriented x 3; no gross focal neurologic deficits Skin- warm & dry Discharge Data Allergies Allergy/AdvReac Type Severity Reaction Status Date / Time lidocaine Allergy Intermediate HIVES Verified 05/23/20 22:57 procaine Allergy Intermediate HIVES Verified 05/23/20 22:57 Penicillins Allergy Mild HAD NO Verified 05/23/20 22:57 PROBLEM WITH ZOSYN strawberry Allergy Mild HIVES Verified 05/23/20 22:57 cephalexin AdvReac Intermediate YEAST Verified 05/23/20 22:57 INFECTIONS egg AdvReac Intermediate GI UPSET Verified 05/23/20 22:57 tramadol AdvReac Intermediate SEIZURES Verified 05/23/20 22:57 azithromycin AdvReac Mild STOMACH Verified 05/23/20 22:57 PAIN Consultations 05/24/20 00:21 Consult Case Management - Discharge Planning Routine 05/24/20 08:00 Consult Cardiology Routine Ordered Studies 05/23/20 22:51 CT angio chest PE protocol Urgent COMPARISON STUDY: 02/22/2020, chest x-ray dated 05/23/2020 TECHNIQUE: Following the IV administration of 107 mL of Optiray-320, CT angiogram of the thorax was performed from the thoracic inlet to the lung bases utilizing the pulmonary embolus protocol. Images are reviewed in the axial, sagittal, and coronal planes. IV contrast was administered without complication. MIP imaging was performed. A dose lowering technique was utilized adhering to the principles of ALARA. CT DOSE: 738.70 mGy.cm FINDINGS: There is a multinodular thyroid gland. The largest nodule measures 15 mm. There is slight increase in the mediastinal and hilar lymphadenopathy. There was no evidence of thoracic aortic dilatation. There were no pulmonary artery filling defects to indicate acute pulmonary embolism. No pleural effusions are visualized. There is progressive diffuse groundglass attenuation with a mosaic distribution. More focal nodular airspace opacities are present within the superior segment the right lower lobe. There is interlobular septal edema. IMPRESSION: 1. Persistent multinodular thyroid gland 2. No evidence of acute pulmonary embolism 3. Progressive mediastinal and hilar lymphadenopathy 4. Diffuse groundglass pulmonary opacities with mosaic attenuation. 5. More focal nodular airspace opacities the superior segment the right lower lobe. 6. Diagnostic considerations include among others pulmonary edema, atypical/viral infection, or hypersensitivity pneumonitis. Clinical and imaging follow-up will be necessary. Hospital Course (1) Acute on chronic heart failure with preserved ejection fraction (HFpEF): ASSESSMENT AND PLAN: This is a 40-year-old female who presents with shortness of breath. 1. Acute on chronic diastolic congestive heart failure Echo: EF 60-65% mild to moderate valvular aortic stenosis [facility] consulted- Dr. Gil given IV Lasix with good response discharge on Lasix 40mg PO daily given CHF instructions ff up with [facility] in 2 week also given course of Doxycycline for possible Acute Bronchitis 2. Mild elevation of troponin - most likely demand ischemia - troponin levels flat 0.9 to 0.1 3. Urinary tract infection - with Leukocytosis. - Urine culture: E coli - given IV Ceftriaxone x 2 days 4. Elevated D-dimer - CT angio: no PE Abnormal CT chest findings: Please refer to full report in the Ordered Studies section 1. Persistent multinodular thyroid gland 2. No evidence of acute pulmonary embolism 3. Progressive mediastinal and hilar lymphadenopathy 4. Diffuse groundglass pulmonary opacities with mosaic attenuation. 5. More focal nodular airspace opacities the superior segment the right lower lobe. 6. Diagnostic considerations include among others pulmonary edema, atypical/viral infection, or hypersensitivity pneumonitis. Clinical and imaging follow-up will be necessary. -- will need further outpatient work up, management and follow up 5. Hypokalemia replaced 6. Premature coronary artery disease with a drug-eluting stent to left circumflex and ramus intermedius in October 2016 and a single drug-eluting stent to PDA on 02/23/2020. Continue aspirin, Plavix, statin, and beta vijay. 7. Diabetes: resume usual regimen 8. Depression: Continue Lexapro. 9. History of chronic obstructive pulmonary disease and asthma: Continue Flovent and home inhalers and nebs. 10. History of seizure: Continue Keppra. 11. Hypertension: Continue lisinopril and Toprol-XL. 12. History of hepatitis C. 13. History of drug abuse: Currently on Suboxone. 14. Hyperlipidemia: On statin. Total Time Total Time Spent Total Time Spent (In Minutes): > 30 MINUTES Discharge Plan Discharge Items Patient Disposition: Against Medical Advice Reason For Visit: SHORT OF BREATH Activity: As commented below Activity Comment: INCREASE ACTIVITY GRADUALLY TOLERATED, NO HEAVY EXERTION Lifting: Wait until after follow-up appointment Exercise/Sports: Wait until after follow-up appointment Non-emergency contact: Primary Care Provider Follow-up/Referrals: Irvin Iverson MD [Primary Care Provider] - Max Gil DO [[facility]] - Fluids: 1800ml (7 cups) Diet Comment: 2g Na diet, Heart Healthy diet Addtl Subscription Agent Provider Instructions: PLEASE REVIEW YOUR NEW MEDICATION LIST AND FOLLOW INSTRUCTIONS CAREFULLY. FOLLOW LOW SALT (2g sodium) AND HEART HEALTHY DIET. FOLLOW UP WITH YOUR PRIMARY CARE PHYSICIAN THIS WEEK. FOLLOW UP WITH THE [employer]ES [facility] MARKET[employer] EXECUTIVE IN 1-2 WEEKS. CALL PRIMARY CARE PHYSICIAN OR RETURN TO THE ER IF WITH RECURRENCE/WORSENING OF SYMPTOMS, INCLUDING SHORTNESS OF BREATH, CHEST PAIN, FEVER/CHILLS, COUGH, SPUTUM PRODUCTION. Call your Primary Care doctor if any of the following symptoms or problems start or get worse: Shortness of breath or difficulty breathing Wake up at night short of breath Chest pain Cough Swelling of your hands, feet, or legs More fatigued or tired with your normal activity Palpitations - sudden fast heart beats WEIGHT Weigh yourself every morning after using the bathroom. Use the same scale. Wear the same amount of clothing. Write your weight down on a chart. Call your Primary Care doctor if you gain more than 2-3 pounds in 1-2 days. MEDICATIONS Use this discharge instruction sheet for medication instructions. Take your medications at the time your doctor ordered. Do not skip a dose of your medicines. If you miss a dose of medicine, take it as soon as possible, but DO NOT DOUBLE A DOSE. Read your medicine information when you get home. Know all of the side effects of your medicine. If in doubt, ask your pharmacist Call your Primary Care doctor's office if you have any side effects. Be sure all of your doctors know what medicine and herbs you take (including cold, flu, and herbal medicine). Take the following with you to your follow-up doctor appointments: Weight Chart Medication List List of questions Do not drink excessive alcohol, beer or wine. Who to Call and When: Call 911 or go to the Emergency Room if: If at any time you feel your situation is an emergency You have tightness or pain in your chest that does not go away with rest or Nitroglycerin You are very short of breath even with rest . Pending Studies at Discharge: No Stand-Alone Forms: My [employer], Smoking Cessation Skilled Items Patient informed of condition?: Yes DNR: No Discharge Level of Care: Other Medications and DC Order Prescriptions: New doxycycline hyclate 100 mg Capsule 100 mg PO BID Qty: 10 RF: 0 ferrous sulfate 325 mg (65 mg iron) Tablet,Delayed Release (Dr/Ec) 325 mg PO QDB Qty: 30 RF: 0 furosemide [Lasix] 20 mg tablet 40 mg PO DAILY Qty: 60 RF: 0 potassium chloride [Klor-Con] 20 mEq packet 40 meq PO DAILY Qty: 60 RF: 0 Continued levetiracetam [Keppra] 500 mg Tablet 500 mg PO BID RF: 0 trazodone 100 mg tablet 250 mg PO HS RF: 0 escitalopram oxalate [Lexapro] 20 mg tablet 20 mg PO QAM RF: 0 metformin 1,000 mg Tablet 1,000 mg PO BID RF: 0 atorvastatin 80 mg Tablet 80 mg PO HS RF: 0 albuterol sulfate 2.5 mg /3 mL (0.083 %) solution for nebulization 2.5 mg inhalation Q4 PRN (Reason: Shortness Of Breath Or Wheezing) RF: 0 nitroglycerin [Nitrostat] 0.4 mg Tablet, Sublingual 0.4 mg sublingual UD PRN (Reason: Chest Pain) RF: 0 albuterol sulfate 90 mcg/actuation HFA aerosol inhaler 2 puff INHALATION Q4 PRN (Reason: Shortness Of Breath Or Wheezing) RF: 0 buspirone 15 mg tablet 15 mg PO BID RF: 0 medroxyprogesterone [Depo-Provera] 150 mg/mL Syringe 150 mg IM Q3M RF: 0 buprenorphine-naloxone [Suboxone] 8-2 mg film 0.5 ea sublingual TID RF: 0 gabapentin 300 mg capsule 300 mg PO TID RF: 0 glipizide 10 mg tablet 10 mg PO DAILYBD RF: 0 clopidogrel 75 mg Tablet 75 mg PO QAM 30 Days Qty: 30 RF: 2 aspirin 81 mg Tablet,Delayed Release (Dr/Ec) 81 mg PO QAM 30 Days Qty: 30 RF: 2 lisinopril 5 mg Tablet 2.5 mg PO QAM RF: 0 metoprolol succinate 25 mg tablet extended release 24 hr 25 mg PO DAILY RF: 0 Flovent HFA 220 mcg/actuation Hfa Aerosol Inhaler 2 puff INHALATION BID RF: 0 Discharge Orders: Left Against Medical Advice (Routine); Ordered 05/25/20 Ordered By: Suleiman Connolly/Other Patient Handouts: Managing Type 2 Diabetes Admission Data Admit Date/Time: 05/23/20 23:39 Attending Provider: Suleiman More Admit Provider: Charles Friedman Primary Care Provider: Irvin Iverson Other Providers: Wesley Rutherford ; Cande Heard Other Interventions: Discharge Summary Assessment (RN) Last Done: 05/25/20 11:20
== END 2020-05-25 11:28 | disposition left against medical advice (07) | DRG 292 ==
LOC: ED 20:36 → 2S 23:39 → SUATTDRO 23:39 → 2S 05-24 00:54

== ENCOUNTER 2020-08-09 21:09 | Inpatient (IN) ==
[2020-08-09 22:05] LABS: Appearance Urine Clear (Clear); Bacteria Urine Automated Negative (Negative); Bilirubin Urine Negative (Negative); Blood Urine Negative (Negative); Color Urine Yellow; Epithelial Cell Urine Auto >30 /lpf (0-5); Glucose Urine UA Negative (Negative); Ketones Urine Trace (Negative); Leukocyte Esterase Urine Negative (Negative); Nitrite Urine Negative (Negative); Protein Urine Trace (Negative); RBC Urine Automated 0-4 /hpf (0-4); Specific Gravity Urine 1.021 (1.000-1.030); Urobilinogen Urine Negative (Negative); pH Urine 5.5 (4.5-7.5)
[2020-08-09 22:16] LABS: Hematocrit (blood only) 32.3 % (37-47); Hemoglobin 9.9 g/dL (12.0-16.0); Mean Corpuscular Hemoglobin 22.7 pg (25-34); Mean Corpuscular Hgb Conc 30.7 g/dL (32-36); Mean Corpuscular Volume 73.9 fL (80-100); Platelet Count 430 K/uL (130-400); RDW Coefficient of Variation 17.2 % (11.5-14.5); Red Blood Count 4.37 M/uL (4.2-5.4); White Blood Count 15.75 K/uL (4.8-10.8)
[2020-08-09 22:18] LABS: Albumin Level 3.6 gm/dl (3.4-5.0); BUN Creatinine Ratio 10.7 (10-20); Calcium 9.5 mg/dl (8.5-10.1); Creatinine Clr Calc Pharmacy 87.4 ml/min; Est GFR (African American) 95.2; Est GFR (Non-African American) 82.2; Potassium 3.2 mmol/L (3.5-5.1)
[2020-08-09 22:24] LABS: Amphetamines+Metham, Urine Neg (Neg); Barbiturates, Urine Neg (Neg); Benzodiazepine, Urine Neg (Neg); Cocaine, Urine Neg (Neg); MDMA (Ecstacy), Urine Neg (Neg); Methadone, Urine Neg (Neg); Opiate, Urine Pos (Neg); Phencyclidine, Urine Neg (Neg)
[2020-08-09 22:28] LABS: Albumin Globulin Ratio 0.9 (0.9-2); Bilirubin,Total 0.3 mg/dl (0.2-1); Globulin 3.9 gm/dl (2.5-4.0); Thyroid Stimulating Hormone 1.51 uIu/ml (0.300-4.500); Total Protein 7.5 gm/dl (6.4-8.2)
[2020-08-09 22:35] LABS: Acetaminophen < 2 ug/ml (10-30)
[2020-08-09 22:38] LABS: Basophils # (auto) 0.07 K/uL (0-0.2); Basophils % (auto) 0.4 %; Eosinophils # (auto) 0.71 K/uL (0-0.5); Eosinophils % (auto) 4.5 %; Immature Granulocytes # (auto) 0.08 K/uL (0.00-0.02); Immature Granulocytes % (auto) 0.5 %; Lymphocytes # (auto) 5.61 K/uL (1.2-3.4); Lymphocytes % (auto) 35.6 %; Monocytes # (auto) 1.13 K/uL (0.11-0.59); Monocytes % (auto) 7.2 %; Neutrophils # (auto) 8.15 K/uL (1.4-6.5); Neutrophils % (auto) 51.8 %; RBC Morphology Unremarkable
--- NOTE | 2020-08-09 23:09 | Emergency Department Note ---
History of Present Illness General Chief complaint: Overdose (Intentional) Stated complaint: OVERDOSE, MHID Time Seen by Provider: 08/09/20 22:05 Source: patient Mode of arrival: ambulatory Limitations: no limitations History of Present Illness Provider complaint: Overdose This is a 40-year-old female who presents to the ED with a chief complaint of an overdose on her cholesterol pills. The patient states that she has been feeling depressed about her son and having custody issues with her ex-. The patient's boyfriend was angry at her tonight and they were in an argument. She states that she took about 9 cholesterol pills around 8 PM tonight and an overdose wanting to harm herself. She does feel suicidal. The patient denies any other ingestions or any other attempts to harm herself. She has no additional complaints at this time. Home Medications Medication Instructions Recorded Confirmed Type escitalopram oxalate [Lexapro] 20 mg PO QAM 05/30/18 08/09/20 History levetiracetam [Keppra] 500 mg PO BID 05/30/18 08/09/20 History trazodone 250 mg PO HS 05/30/18 08/09/20 History lisinopril 2.5 mg PO QAM 09/08/18 08/09/20 History metformin 1,000 mg PO BID 12/19/18 08/09/20 History atorvastatin 80 mg PO HS 12/28/18 08/09/20 History albuterol sulfate 2 puff INHALATION Q6 PRN 11/06/19 08/10/20 History albuterol sulfate 2.5 mg INHALATION Q4 PRN 11/06/19 08/09/20 History buprenorphine-naloxone [Suboxone] 0.5 ea SUBLINGUAL TID 11/06/19 08/09/20 History buspirone 15 mg PO BID 11/06/19 08/09/20 History medroxyprogesterone [Depo-Provera] 150 mg IM Q3M 11/06/19 08/09/20 History nitroglycerin [Nitrostat] 0.4 mg SUBLINGUAL UD PRN 11/06/19 08/09/20 History glipizide 10 mg PO DAILYBD 02/22/20 08/09/20 History aspirin 81 mg PO QAM 30 Days #30 tab 02/24/20 08/09/20 Rx clopidogrel 75 mg PO QAM 30 Days #30 tab 02/24/20 08/09/20 Rx Flovent HFA 2 puff INHALATION BID 05/23/20 08/09/20 History metoprolol succinate 25 mg PO DAILY 05/23/20 08/09/20 History ferrous sulfate 325 mg PO QDB #30 tab 05/25/20 08/09/20 Rx furosemide [Lasix] 20 mg PO DAILY 08/09/20 08/09/20 History gabapentin 400 mg PO TID 08/09/20 08/09/20 History meloxicam 15 mg PO DAILY 08/09/20 08/09/20 History potassium chloride [Klor-Con M20] 20 meq PO DAILY 08/09/20 08/09/20 History Allergies Allergy/AdvReac Type Severity Reaction Status Date / Time lidocaine Allergy Intermediate HIVES Verified 08/09/20 22:47 procaine Allergy Intermediate HIVES Verified 08/09/20 22:47 Penicillins Allergy Mild HAD NO Verified 08/09/20 22:47 PROBLEM WITH ZOSYN strawberry Allergy Mild HIVES Verified 08/09/20 22:47 cephalexin AdvReac Intermediate YEAST Verified 08/09/20 22:47 INFECTIONS egg AdvReac Intermediate GI UPSET Verified 08/09/20 22:47 tramadol AdvReac Intermediate SEIZURES Verified 08/09/20 22:47 azithromycin AdvReac Mild STOMACH Verified 08/09/20 22:47 PAIN Past Med/Surg History Medical History Acute electrocardiogram changes Aortic regurgitation Aortic stenosis Asthma Atypical chest pain Chronic diastolic CHF (congestive heart failure) Coronary artery disease Depression Diabetes mellitus, type 2 Dyslipidemia Encounter for smoking cessation counseling GERD (gastroesophageal reflux disease) Hepatitis C "Antibiotic screen positive, quantitative RNA positive 08/30/17" Hepatosplenomegaly History of drug abuse History of DVT (deep vein thrombosis) History of renal calculi Hypertension Hypocalcemia Seizure disorder Surgical History History of cardiac cath 2017- 1 ROJAS to ramus, 2 ROJAS to L circumflex. 40-50% plaque to LAD 2018- distal disease (80%) within PDA History of carpal tunnel surgery History of lumbar spinal fusion Hx of tonsillectomy S/P coronary artery stent placement Status post cholecystectomy Family History Other Diabetes Heart disease Hypertension Kidney stones Seizures Social History Smoking Status: Current every day smoker Tobacco Type: Cigarettes Cigarettes Per Day: 10; Number of Years Since Quit: 31; Second Hand Exposure: Yes; Hx Alcohol Use: No Hx Substance Use: No Preferred Language: Croatian Communication Ability: Effective Visual Impairment: No Limitations Hearing Ability: Normal Optometrist Owner Required: No Beliefs That Will Affect Care: None marital status: Single Current Living Situation: Significant Other Current Living Situation Comment: LIVES WITH ROOMMATES Feels Safe at Home: Yes Assistive Devices: Oxygen - Continuous Review of Systems A total of 10 systems reviewed and were otherwise negative Physical Exam Vital Signs Vital Signs - 24 hr 08/09/20 21:17 08/09/20 21:54 Temperature 36.6 C Temperature Source Oral Pulse Rate 106 H Pulse Rate [Bilateral] 100 H Pulse Rhythm Regular Pulse Rhythm [Bilateral] Regular Pulse Strength Normal Pulse Strength [Bilateral] Normal Respiratory Rate 18 18 Respiratory Effort / Characteristics Non-Labored Spontaneous Non-Labored Spontaneous Respiratory Depth Normal Normal Respiratory Pattern Regular Regular Blood Pressure 155/98 H Blood Pressure [Right Arm] 119/77 Blood Pressure Mean 117 Blood Pressure Mean [Right Arm] 91 Blood Pressure Position Sitting Pulse Oximetry 97 98 Oxygen Delivery Method Room Air Room Air Sepsis Recent Fever Within 48 Hours No Sepsis New/Unexplained Change in Mental Status No Sepsis Action Taken by Nursing No Action Required CONSTITUTIONAL/VITAL SIGNS: Reviewed / noted above. GENERAL: Non-toxic in appearance. INTEGUMENTARY: Warm, dry, and [place]. HEAD: Normocephalic. EYES: without scleral icterus or trauma. ENT/OROPHARYNX: clear and moist. LYMPHADENOPATHY/NECK: Is supple without lymphadenopathy or meningismus. RESPIRATORY: Lungs clear and equal. CARDIOVASCULAR: Regular rate and rhythm. GI/ABDOMEN: Soft and nontender. No organomegaly or pulsatile mass. No rebound or guarding. Normal bowel sounds. EXTREMITIES: Warm and well perfused. BACK: No CVA tenderness. NEUROLOGICAL: Intact without focal deficits. PSYCHIATRIC: Depressed affect. MUSCULOSKELETAL: Normally developed with good muscle tone. TRIAGE NURSING DOCUMENTATION REVIEWED. Course Administered Medications Discontinued Medications Al Hydrox/Mg Hydrox/Simethicone (Gi Cocktail Ed Use) 1 dose PO ONE ONE Stop: 08/10/20 00:09 Last Admin: 08/10/20 00:25 Dose: 1 dose Documented by: [id number] Medical Decision Making Differential Diagnosis Differential includes toxic ingestions, self-mutilation, suicidal ideation, suicide attempt, depression. Medical Records Attestation: I reviewed the patient's medical records. Home Medications Current Medication List: was personally reviewed by me Laboratory Data Attestation: I reviewed the patient's lab results. Result diagrams: 08/09/20 21:44 08/09/20 21:44 Lab Results 08/09/20 08/09/20 08/09/20 Range/Units 21:35 21:35 21:44 WBC 15.75 H (4.8-10.8) K/uL RBC 4.37 (4.2-5.4) M/uL Hgb 9.9 L (12.0-16.0) g/dL Hct 32.3 L (37-47) % MCV 73.9 L (80-100) fL MCH 22.7 L (25-34) pg MCHC 30.7 L (32-36) g/dL RDW Std Deviation 47.0 H (36.4-46.3) fL RDW Coeff of Hannah 17.2 H (11.5-14.5) % Plt Count 430 H (130-400) K/uL MPV 10.0 (7.4-10.4) fL Immature Gran % (Auto) 0.5 % Neut % (Auto) 51.8 % Lymph % (Auto) 35.6 % [place] % (Auto) 7.2 % Eos % (Auto) 4.5 % Baso % (Auto) 0.4 % Neut # (Auto) 8.15 H (1.4-6.5) K/uL Lymph # (Auto) 5.61 H (1.2-3.4) K/uL [place] # (Auto) 1.13 H (0.11-0.59) K/uL Eos # (Auto) 0.71 H (0-0.5) K/uL Baso # (Auto) 0.07 (0-0.2) K/uL Immature Gran # (Auto) 0.08 H (0.00-0.02) K/uL RBC Morphology Unremarkable Sodium (136-145) mmol/L Potassium (3.5-5.1) mmol/L Chloride (98-107) mmol/L Carbon Dioxide (21-32) mmol/L Anion Gap (3-11) BUN (7-18) mg/dl Creatinine (0.6-1.2) mg/dl Est Cr Clr Drug Dosing ml/min Est GFR ( Amer) Est GFR (Non-Af Amer) BUN/Creatinine Ratio (10-20) Glucose (70-99) mg/dl Calcium (8.5-10.1) mg/dl Total Bilirubin (0.2-1) mg/dl AST (15-37) U/L ALT (12-78) U/L Alkaline Phosphatase (45-117) U/L Total Protein (6.4-8.2) gm/dl Albumin (3.4-5.0) gm/dl Globulin (2.5-4.0) gm/dl Albumin/Globulin Ratio (0.9-2) TSH (0.300-4.500) uIu/ml HCG, Qual (Negative) Urine Color Yellow Urine Appearance Clear (Clear) Urine pH 5.5 (4.5-7.5) Ur Specific [place] 1.021 (1.000-1.030) Urine Protein Trace H (Negative) Urine Glucose (UA) Negative (Negative) Urine Ketones Trace H (Negative) Urine Blood Negative (Negative) Urine Nitrite Negative (Negative) Urine Bilirubin Negative (Negative) Urine Urobilinogen Negative (Negative) Ur Leukocyte Esterase Negative (Negative) Urine WBC (Auto) 1-5 (0-5) /hpf Urine RBC (Auto) 0-4 (0-4) /hpf U Hyaline Cast (Auto) 5-10 H (0-5) /lpf U Epithel Cells (Auto) >30 H (0-5) /lpf Urine Bacteria (Auto) Negative (Negative) Salicylates (2.8-20) mg/dl Urine Opiates Screen Pos H (Neg) Ur Methadone, Qual Neg (Neg) Acetaminophen (10-30) ug/ml Urine Barbiturates Neg (Neg) Ur Phencyclidine (PCP) Neg (Neg) U Amphetamin/Meth Scrn Neg (Neg) MDMA (Ecstasy) Screen Neg (Neg) U Benzodiazepines Scrn Neg (Neg) Ur Cocaine Metabolite Neg (Neg) U Marijuana (THC) Screen Pos H (Neg) Ethyl Alcohol mg/dL (0-3) mg/dl COVID-19 Eval Order SARS-CoV-2 (PCR) Influenza Type A (PCR) Influenza Type B (PCR) RSV (RT-PCR) 08/09/20 08/09/20 08/09/20 Range/Units 21:44 21:44 21:44 WBC (4.8-10.8) K/uL RBC (4.2-5.4) M/uL Hgb (12.0-16.0) g/dL Hct (37-47) % MCV (80-100) fL MCH (25-34) pg MCHC (32-36) g/dL RDW Std Deviation (36.4-46.3) fL RDW Coeff of Hannah (11.5-14.5) % Plt Count (130-400) K/uL MPV (7.4-10.4) fL Immature Gran % (Auto) % Neut % (Auto) % Lymph % (Auto) % [place] % (Auto) % Eos % (Auto) % Baso % (Auto) % Neut # (Auto) (1.4-6.5) K/uL Lymph # (Auto) (1.2-3.4) K/uL [place] # (Auto) (0.11-0.59) K/uL Eos # (Auto) (0-0.5) K/uL Baso # (Auto) (0-0.2) K/uL Immature Gran # (Auto) (0.00-0.02) K/uL RBC Morphology Sodium 140 (136-145) mmol/L Potassium 3.2 L (3.5-5.1) mmol/L Chloride 110 H (98-107) mmol/L Carbon Dioxide 23 (21-32) mmol/L Anion Gap 7.0 (3-11) BUN 9 (7-18) mg/dl Creatinine 0.87 (0.6-1.2) mg/dl Est Cr Clr Drug Dosing 87.4 ml/min Est GFR ( Amer) 95.2 Est GFR (Non-Af Amer) 82.2 BUN/Creatinine Ratio 10.7 (10-20) Glucose 114 H (70-99) mg/dl Calcium 9.5 (8.5-10.1) mg/dl Total Bilirubin 0.3 (0.2-1) mg/dl AST 14 L (15-37) U/L ALT 20 (12-78) U/L Alkaline Phosphatase 98 (45-117) U/L Total Protein 7.5 (6.4-8.2) gm/dl Albumin 3.6 (3.4-5.0) gm/dl Globulin 3.9 (2.5-4.0) gm/dl Albumin/Globulin Ratio 0.9 (0.9-2) TSH 1.510 (0.300-4.500) uIu/ml HCG, Qual (Negative) Urine Color Urine Appearance (Clear) Urine pH (4.5-7.5) Ur Specific [place] (1.000-1.030) Urine Protein (Negative) Urine Glucose (UA) (Negative) Urine Ketones (Negative) Urine Blood (Negative) Urine Nitrite (Negative) Urine Bilirubin (Negative) Urine Urobilinogen (Negative) Ur Leukocyte Esterase (Negative) Urine WBC (Auto) (0-5) /hpf Urine RBC (Auto) (0-4) /hpf U Hyaline Cast (Auto) (0-5) /lpf U Epithel Cells (Auto) (0-5) /lpf Urine Bacteria (Auto) (Negative) Salicylates 7.0 (2.8-20) mg/dl Urine Opiates Screen (Neg) Ur Methadone, Qual (Neg) Acetaminophen < 2 L (10-30) ug/ml Urine Barbiturates (Neg) Ur Phencyclidine (PCP) (Neg) U Amphetamin/Meth Scrn (Neg) MDMA (Ecstasy) Screen (Neg) U Benzodiazepines Scrn (Neg) Ur Cocaine Metabolite (Neg) U Marijuana (THC) Screen (Neg) Ethyl Alcohol mg/dL < 3.0 (0-3) mg/dl COVID-19 Eval Order SARS-CoV-2 (PCR) Influenza Type A (PCR) Influenza Type B (PCR) RSV (RT-PCR) 08/09/20 08/09/20 08/09/20 Range/Units 21:44 23:40 23:40 WBC (4.8-10.8) K/uL RBC (4.2-5.4) M/uL Hgb (12.0-16.0) g/dL Hct (37-47) % MCV (80-100) fL MCH (25-34) pg MCHC (32-36) g/dL RDW Std Deviation (36.4-46.3) fL RDW Coeff of Hannah (11.5-14.5) % Plt Count (130-400) K/uL MPV (7.4-10.4) fL Immature Gran % (Auto) % Neut % (Auto) % Lymph % (Auto) % [place] % (Auto) % Eos % (Auto) % Baso % (Auto) % Neut # (Auto) (1.4-6.5) K/uL Lymph # (Auto) (1.2-3.4) K/uL [place] # (Auto) (0.11-0.59) K/uL Eos # (Auto) (0-0.5) K/uL Baso # (Auto) (0-0.2) K/uL Immature Gran # (Auto) (0.00-0.02) K/uL RBC Morphology Sodium (136-145) mmol/L Potassium (3.5-5.1) mmol/L Chloride (98-107) mmol/L Carbon Dioxide (21-32) mmol/L Anion Gap (3-11) BUN (7-18) mg/dl Creatinine (0.6-1.2) mg/dl Est Cr Clr Drug Dosing ml/min Est GFR ( Amer) Est GFR (Non-Af Amer) BUN/Creatinine Ratio (10-20) Glucose (70-99) mg/dl Calcium (8.5-10.1) mg/dl Total Bilirubin (0.2-1) mg/dl AST (15-37) U/L ALT (12-78) U/L Alkaline Phosphatase (45-117) U/L Total Protein (6.4-8.2) gm/dl Albumin (3.4-5.0) gm/dl Globulin (2.5-4.0) gm/dl Albumin/Globulin Ratio (0.9-2) TSH (0.300-4.500) uIu/ml HCG, Qual Negative (Negative) Urine Color Urine Appearance (Clear) Urine pH (4.5-7.5) Ur Specific [place] (1.000-1.030) Urine Protein (Negative) Urine Glucose (UA) (Negative) Urine Ketones (Negative) Urine Blood (Negative) Urine Nitrite (Negative) Urine Bilirubin (Negative) Urine Urobilinogen (Negative) Ur Leukocyte Esterase (Negative) Urine WBC (Auto) (0-5) /hpf Urine RBC (Auto) (0-4) /hpf U Hyaline Cast (Auto) (0-5) /lpf U Epithel Cells (Auto) (0-5) /lpf Urine Bacteria (Auto) (Negative) Salicylates (2.8-20) mg/dl Urine Opiates Screen (Neg) Ur Methadone, Qual (Neg) Acetaminophen (10-30) ug/ml Urine Barbiturates (Neg) Ur Phencyclidine (PCP) (Neg) U Amphetamin/Meth Scrn (Neg) MDMA (Ecstasy) Screen (Neg) U Benzodiazepines Scrn (Neg) Ur Cocaine Metabolite (Neg) U Marijuana (THC) Screen (Neg) Ethyl Alcohol mg/dL (0-3) mg/dl COVID-19 Eval Order Cancelled SARS-CoV-2 (PCR) Cancelled Influenza Type A (PCR) Cancelled Influenza Type B (PCR) Cancelled RSV (RT-PCR) Cancelled 08/09/20 08/09/20 Range/Units 23:58 23:58 WBC (4.8-10.8) K/uL RBC (4.2-5.4) M/uL Hgb (12.0-16.0) g/dL Hct (37-47) % MCV (80-100) fL MCH (25-34) pg MCHC (32-36) g/dL RDW Std Deviation (36.4-46.3) fL RDW Coeff of Hannah (11.5-14.5) % Plt Count (130-400) K/uL MPV (7.4-10.4) fL Immature Gran % (Auto) % Neut % (Auto) % Lymph % (Auto) % [place] % (Auto) % Eos % (Auto) % Baso % (Auto) % Neut # (Auto) (1.4-6.5) K/uL Lymph # (Auto) (1.2-3.4) K/uL [place] # (Auto) (0.11-0.59) K/uL Eos # (Auto) (0-0.5) K/uL Baso # (Auto) (0-0.2) K/uL Immature Gran # (Auto) (0.00-0.02) K/uL RBC Morphology Sodium (136-145) mmol/L Potassium (3.5-5.1) mmol/L Chloride (98-107) mmol/L Carbon Dioxide (21-32) mmol/L Anion Gap (3-11) BUN (7-18) mg/dl Creatinine (0.6-1.2) mg/dl Est Cr Clr Drug Dosing ml/min Est GFR ( Amer) Est GFR (Non-Af Amer) BUN/Creatinine Ratio (10-20) Glucose (70-99) mg/dl Calcium (8.5-10.1) mg/dl Total Bilirubin (0.2-1) mg/dl AST (15-37) U/L ALT (12-78) U/L Alkaline Phosphatase (45-117) U/L Total Protein (6.4-8.2) gm/dl Albumin (3.4-5.0) gm/dl Globulin (2.5-4.0) gm/dl Albumin/Globulin Ratio (0.9-2) TSH (0.300-4.500) uIu/ml HCG, Qual (Negative) Urine Color Urine Appearance (Clear) Urine pH (4.5-7.5) Ur Specific [place] (1.000-1.030) Urine Protein (Negative) Urine Glucose (UA) (Negative) Urine Ketones (Negative) Urine Blood (Negative) Urine Nitrite (Negative) Urine Bilirubin (Negative) Urine Urobilinogen (Negative) Ur Leukocyte Esterase (Negative) Urine WBC (Auto) (0-5) /hpf Urine RBC (Auto) (0-4) /hpf U Hyaline Cast (Auto) (0-5) /lpf U Epithel Cells (Auto) (0-5) /lpf Urine Bacteria (Auto) (Negative) Salicylates (2.8-20) mg/dl Urine Opiates Screen (Neg) Ur Methadone, Qual (Neg) Acetaminophen (10-30) ug/ml Urine Barbiturates (Neg) Ur Phencyclidine (PCP) (Neg) U Amphetamin/Meth Scrn (Neg) MDMA (Ecstasy) Screen (Neg) U Benzodiazepines Scrn (Neg) Ur Cocaine Metabolite (Neg) U Marijuana (THC) Screen (Neg) Ethyl Alcohol mg/dL (0-3) mg/dl COVID-19 Eval Order [facility] at [facility] SARS-CoV-2 (PCR) NEGATIVE Influenza Type A (PCR) Negative Influenza Type B (PCR) Negative RSV (RT-PCR) Negative MDM Narrative Patient presents as above for mental health evaluation. She is medically cleared. The mental health case finishing machine adjuster evaluated the patient. She feels the patient would benefit from inpatient. The patient is voluntary. Poison control was contacted with regards to the overdose on atorvastatin. There was no issues with regards to this. She is medically cleared from a poison control standpoint as well. She was admitted to [facility]. Impression & Plan Depression with suicidal ideation, Overdose Discharge Plan Visit Data Chief Complaint: Overdose (Intentional) Stated Complaint: OVERDOSE, MHID ED Provider: Johan Viveros Discharge Problem: Depression with suicidal ideation, Overdose Forms Stand Alone Forms: [facility], Suicide Prevention Resources Prescriptions Prescriptions: No Action levetiracetam [Keppra] 500 mg Tablet 500 mg PO BID RF: 0 trazodone 100 mg tablet 250 mg PO HS RF: 0 escitalopram oxalate [Lexapro] 20 mg tablet 20 mg PO QAM RF: 0 metformin 1,000 mg Tablet 1,000 mg PO BID RF: 0 atorvastatin 80 mg Tablet 80 mg PO HS RF: 0 albuterol sulfate 2.5 mg /3 mL (0.083 %) solution for nebulization 2.5 mg inhalation Q4 PRN (Reason: Shortness Of Breath Or Wheezing) RF: 0 nitroglycerin [Nitrostat] 0.4 mg Tablet, Sublingual 0.4 mg sublingual UD PRN (Reason: Chest Pain) RF: 0 albuterol sulfate 90 mcg/actuation HFA aerosol inhaler 2 puff INHALATION Q6 PRN (Reason: Shortness Of Breath Or Wheezing) RF: 0 buspirone 15 mg tablet 15 mg PO BID RF: 0 medroxyprogesterone [Depo-Provera] 150 mg/mL Syringe 150 mg IM Q3M RF: 0 buprenorphine-naloxone [Suboxone] 8-2 mg film 0.5 ea sublingual TID RF: 0 glipizide 10 mg tablet 10 mg PO DAILYBD RF: 0 clopidogrel 75 mg Tablet 75 mg PO QAM 30 Days Qty: 30 RF: 2 aspirin 81 mg Tablet,Delayed Release (Dr/Ec) 81 mg PO QAM 30 Days Qty: 30 RF: 2 lisinopril 5 mg Tablet 2.5 mg PO QAM RF: 0 metoprolol succinate 25 mg tablet extended release 24 hr 25 mg PO DAILY RF: 0 Flovent HFA 220 mcg/actuation Hfa Aerosol Inhaler 2 puff INHALATION BID RF: 0 ferrous sulfate 325 mg (65 mg iron) Tablet,Delayed Release (Dr/Ec) 325 mg PO QDB Qty: 30 RF: 0 meloxicam 15 mg tablet 15 mg PO DAILY RF: 0 gabapentin 400 mg capsule 400 mg PO TID RF: 0 furosemide [Lasix] 20 mg tablet 20 mg PO DAILY RF: 0 potassium chloride [Klor-Con M20] 20 mEq tablet,ER particles/crystals 20 meq PO DAILY RF: 0 Referrals Referrals: Irvin Iverson MD [Primary Care Provider] - Discharge Problem: Overdose Qualifiers: Encounter type: initial encounter Injury intent: intentional self-harm Qualified Code(s): T50.902A - Poisoning by unspecified drugs, medicaments and biological substances, intentional self-harm, initial encounter
[2020-08-10 00:05] LABS: Pregnancy Test, Serum Negative (Negative)
[2020-08-10] MEDS ORDERED: GI COCKTAIL ED USE PO ONE (00:08)
[2020-08-10 01:03] LABS: Influenza A virus by PCR Negative (Neg); Influenza B virus by PCR Negative (Neg); RSV by PCR Negative (Neg); SARS CoV2 RNA(COVID-19) InHosp NEGATIVE (Negative)
[2020-08-10] MEDS ORDERED: hydrOXYzine HCl 25 MG TAB PO PRN ×2 (02:48)
[2020-08-10] MEDS ORDERED: BISMUTH SUBSALICYLATE LIQD 236 ML PO PRN (02:48)
[2020-08-10] MEDS ORDERED: ACETAMINOPHEN 325 MG TAB PO PRN (02:48)
[2020-08-10] MEDS ORDERED: MAGNESIUM HYDROXIDE SUSP 30 ML UDC PO PRN (02:48)
[2020-08-10] MEDS ORDERED: SODIUM CHLORIDE 0.65% NA SOLN 45 ML (OCEAN) PRN (02:48)
[2020-08-10] MEDS ORDERED: BUPRENORPHINE/NALOXONE 8/2 MG TAB SL ONE (03:15)
[2020-08-10] MEDS ORDERED: ALBUTEROL HFA 8 GM INHALER INH PRN (03:21)
[2020-08-10] MEDS ORDERED: MECLIZINE HCL 25 MG TAB PO PRN (03:25)
[2020-08-10] MEDS: busPIRone 15 MG TAB PO SCH ×3 (03:27→20:38)
[2020-08-10] MEDS: levETIRAcetam 500 MG TAB PO SCH ×3 (03:27→20:39)
[2020-08-10] MEDS: GABAPENTIN 400 MG CAP PO SCH ×4 (03:28→20:39)
[2020-08-10] MEDS ORDERED: PNEUMOCOCCAL Polysaccharide Vaccine 25mcg/0.5mL vial/Syr IM ONE (03:45)
[2020-08-10] MEDS: CLOPIDOGREL BISULFATE 75 MG TAB PO SCH (08:00)
[2020-08-10] MEDS: ASPIRIN 81 MG ECTAB PO SCH (08:37)
[2020-08-10] MEDS: ESCITALOPRAM OXALATE 20 MG TAB PO SCH (08:37)
[2020-08-10] MEDS: MELOXICAM 7.5 MG TAB PO SCH (08:37)
[2020-08-10] MEDS: METOPROLOL SUCC 25MG EXT REL TAB PO SCH (08:38)
[2020-08-10] MEDS: lisinopril 2.5 MG TAB PO SCH (08:38)
[2020-08-10] MEDS: FUROSEMIDE 20 MG TAB PO SCH (08:38)
[2020-08-10] MEDS: POTASSIUM CHLORIDE CRTAB 20 MEQ TABCR PO SCH (08:38)
[2020-08-10] MEDS: metFORMIN HCL 500 MG TAB PO SCH ×2 (08:39→17:44)
[2020-08-10] MEDS: BUPRENORPHINE/NALOXONE 8/2 MG TAB SL SCH ×3 (08:39→20:40)
[2020-08-10] MEDS ORDERED: POTASSIUM CHLORIDE 10 MEQ TABCR PO SCH (09:00)
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
[2020-08-10] MEDS: PANTOprazole 40 MG TAB PO SCH (12:45)
[2020-08-10] MEDS: NICOTINE 7 MG/24 HR TDSY TD SCH (12:45)
[2020-08-10] MEDS: glipiZIDE 5 MG TAB PO SCH (17:43)
[2020-08-10] MEDS: ATORVASTATIN 40 MG TAB PO SCH (20:40)
[2020-08-10] MEDS: ALUMINUM/MAGNESIUM SUSP 30 ML UDC PO PRN (20:41)
[2020-08-11] MEDS: NICOTINE 7 MG/24 HR TDSY TD SCH (08:48)
[2020-08-11] MEDS: busPIRone 15 MG TAB PO SCH ×2 (08:54→20:27)
[2020-08-11] MEDS: ASPIRIN 81 MG ECTAB PO SCH (08:54)
[2020-08-11] MEDS: POTASSIUM CHLORIDE CRTAB 20 MEQ TABCR PO SCH (08:55)
[2020-08-11] MEDS: levETIRAcetam 500 MG TAB PO SCH ×2 (08:55→20:27)
[2020-08-11] MEDS: metFORMIN HCL 500 MG TAB PO SCH ×2 (08:55→17:27)
[2020-08-11] MEDS: ESCITALOPRAM OXALATE 20 MG TAB PO SCH (08:56)
[2020-08-11] MEDS: GABAPENTIN 400 MG CAP PO SCH ×3 (08:56→20:28)
[2020-08-11] MEDS: FUROSEMIDE 20 MG TAB PO SCH (08:56)
[2020-08-11] MEDS: MELOXICAM 7.5 MG TAB PO SCH (08:56)
[2020-08-11] MEDS: CLOPIDOGREL BISULFATE 75 MG TAB PO SCH (08:57)
[2020-08-11] MEDS: BUPRENORPHINE/NALOXONE 8/2 MG TAB SL SCH ×3 (08:58→20:29)
[2020-08-11] MEDS: PANTOprazole 40 MG TAB PO SCH (08:58)
[2020-08-11] MEDS: METOPROLOL SUCC 25MG EXT REL TAB PO SCH (08:59)
[2020-08-11] MEDS: lisinopril 2.5 MG TAB PO SCH (08:59)
--- NOTE | 2020-08-11 09:38 | Psychiatric Progress Note ---
Date of Service August 11, 2020 Impression / Recommendations Impression 40-year-old female who lives with her boyfriend, has a history of multiple medical problems including heart disease, hepatitis C, hypertension, and diabetes, as well as methamphetamine and opiate abuse and depression, who presents after a suicide attempt by overdose in the context of an argument with her boyfriend. She describes an impulsive overdose which she stopped after taking only 9 tablets, as she thought about her son and changed her mind about wanting to . I strongly suspect this is also occurring in the context of relapse on opiates and cannabis, although she is not forthcoming regarding her recent substance use. Inpatient treatment is medically necessary due to the severity of symptoms and risk for suicide if discharged prematurely. (1) Overdose: 08/10 - heartburn continues, offer pantoprazole (takes omeprazole OTC prn at home, nonformulary here). - Suicide checks for safety. -Group and therapy, work on discharge safety plan, involve OP supports as appropriate. (2) Depression: 08/10 -patient reports mood was well controlled on escitalopram and buspirone, and only decompensated yesterday in the context of an argument with her boyfriend. I also suspect her relapse/drug use is playing a role, as UDS + opiates, although she claims she only used cannabis. Although she reports a history of bipolar disorder, she does not endorse any symptoms consistent with manic episodes. For now we will continue Lexapro 20 mg and buspirone 15 mg twice daily, while gathering collateral information. (3) Opiate abuse, continuous: 08/10 - UDS + opiates, patient denies using, but also indicates recent + UDS, not forthcoming with information. Follow-up on confirmatory results, and coordinate care with her substance abuse treatment therapist and physician at [facility]. -Continue Suboxone and coordinate w/ Dr. Max Garcia who is prescribing. Spoke with nurse, Amanda, at [facility]. Reviewed her admission, concern for relapse given UDS opiates. She had recently asked for an early refill, stating she lost her medication, then said she "found" another prescription. Her Suboxone that she brought in is empty, but she should have had several more days left. -Watch for signs of opiate withdrawal, although her Suboxone should help to mitigate that. -Recovery protocol. (4) Cannabis abuse: 08/10 - Continue to provide education about risk of substance abuse and recommendations to abstain from recreational drugs. C/w OP clinicians as above. (5) Methamphetamine abuse: Patient reports last use was approximately 2 years ago. D&A treatment as above. (6) Diabetes mellitus, type 2: Diabetic diet, continue home medication (7) Hypertension: Continue home medication, monitor vital signs (8) Hepatitis C: (9) Coronary artery disease: Continue home medications Risk Factors Assessment Male: No : Yes Do You Have Access To A Gun?: No Health Problems: Yes Mental Health Diagnoses: Yes Substance Use Disorders: Yes Previous Attempt: Yes Previous Psychiatric Hospitalization: Yes Hopelessness: Yes Smoker: Yes Protective Factors Assessment Shinto Beliefs: No : No Responsible for Young Children: No Employed: No (disabled) Stable Relationships: No Supportive Family: No Good Rapport with Provider: No Interval History Identifying Information ROGER WEEKS is a 40-year-old F who currently lives in [place] with her boyfriend, has a history of multiple medical problems including diabetes, seizure disorder, hypertension, hepatitis C, hyperlipidemia, meth and opiate abuse, unspecified mood disorder, and anxiety, and was admitted on 08/10/20 01:48 on a 201 voluntary commitment for suicidality and an overdose on Lipitor. Chief Complaint "[]". Review of Systems Notes Constitutional: [denied] Cardiovascular: [denied] Respiratory: [denied] Gastrointestinal: [denied] Neurological: [denied] Psychiatric: [denies symptoms other than stated above] Total of at least 10 systems reviewed, pertinent positives as above and in HPI. Sleep Information Total Hours of Sleep: 3.75 Sleep Comments: pt awoke and had cereals with milk. pt c/o of being hungry. pt also awoke due to gettiing a roommate. pt on q-15 minute checks Meal Information Percent Meal Consumed - Breakfast: 100 Percent Meal Consumed - Dinner: 100 Subjective Subjective Patient was seen & assessed and interval progress reviewed with [treatment team] [nursing and social work] Physical Exam Vital Signs (Past 24 Hours) Last Vital Signs Temp 36.7 C 08/11/20 06:58 Pulse 81 08/11/20 06:59 Resp 18 08/11/20 06:58 BP 112/72 08/11/20 06:59 Pulse Ox 100 08/10/20 03:02 Results & Data ([facility]) Current Inpatient Medications Current Inpatient Medications: Current Inpatient Medications Acetaminophen (Acetaminophen 325 Mg Tab) 650 mg PO Q4H PRN PRN Reason: Headache or Minor Fever Stop: 09/09/20 02:47 Al Hydrox/Mg Hydrox/Simethicone (Aluminum/Magnesium Susp 30 Ml Udc) 30 ml PO Q4H PRN PRN Reason: GI Upset Stop: 09/09/20 02:47 Last Admin: 08/10/20 20:41 Dose: 30 ml Documented by: Albuterol (Albuterol Hfa 8 Gm Inhaler) 2 puffs INH Q6 PRN PRN Reason: coughing/wheezing Stop: 09/09/20 03:20 Aspirin (Aspirin 81 Mg Ectab) [facility] Stop: 09/09/20 08:59 Last Admin: 08/11/20 08:54 Dose: 81 mg Documented by: Atorvastatin Calcium (Atorvastatin 40 Mg Tab) 80 mg PO HS [facility] Stop: 09/09/20 21:59 Last Admin: 08/10/20 20:40 Dose: 80 mg Documented by: Bismuth Subsalicylate (Bismuth Subsalicylate Liqd 236 Ml) 15 ml PO PRN PRN PRN Reason: Loose Stool Stop: 09/09/20 02:47 Buprenorphine/Naloxone (Buprenorphine/Naloxone 8/2 Mg Tab) 0.5 tab SL TID [facility] Stop: 09/09/20 08:59 Last Admin: 08/11/20 08:58 Dose: 0.5 tab Documented by: Buspirone HCl (Buspirone 15 Mg Tab) 15 mg PO BID [facility] Stop: 09/09/20 03:29 Last Admin: 08/11/20 08:54 Dose: 15 mg Documented by: Clopidogrel Bisulfate (Clopidogrel Bisulfate 75 Mg Tab) 75 [facility] Stop: 09/09/20 08:59 Last Admin: 08/11/20 08:57 Dose: 75 mg Documented by: Escitalopram Oxalate (Escitalopram Oxalate 20 Mg Tab) 20 [facility] Stop: 09/09/20 08:59 Last Admin: 08/11/20 08:56 Dose: 20 mg Documented by: Furosemide (Furosemide 20 Mg Tab) 20 [facility] Stop: 09/09/20 08:59 Last Admin: 08/11/20 08:56 Dose: 20 mg Documented by: Gabapentin (Gabapentin 400 Mg Cap) 400 mg PO TID [facility] Stop: 09/09/20 03:29 Last Admin: 08/11/20 08:56 Dose: 400 mg Documented by: Glipizide (Glipizide 5 Mg Tab) 10 mg PO DAILYBD [facility] Stop: 09/09/20 17:14 Last Admin: 08/10/20 17:43 Dose: 10 mg Documented by: Hydroxyzine HCl (Hydroxyzine Hcl 25 Mg Tab) 50 mg PO HSZ PRN PRN Reason: Insomnia Stop: 09/09/20 02:47 Hydroxyzine HCl (Hydroxyzine Hcl 25 Mg Tab) 25 mg PO Q4H PRN PRN Reason: Anxiety Stop: 09/09/20 02:47 Last Admin: 08/10/20 04:20 Dose: 25 mg Documented by: Levetiracetam (Levetiracetam 500 Mg Tab) 500 mg PO BID [facility] Stop: 09/09/20 03:29 Last Admin: 08/11/20 08:55 Dose: 500 mg Documented by: Lisinopril (Lisinopril 2.5 Mg Tab) 2.5 mg PO QAM [facility] Stop: 09/09/20 08:59 Last Admin: 08/11/20 08:59 Dose: 2.5 mg Documented by: Magnesium Hydroxide (Magnesium Hydroxide Susp 30 Ml Udc) 30 ml PO DAILY PRN PRN Reason: Constipation Stop: 09/09/20 02:47 Meclizine HCl (Meclizine Hcl 25 Mg Tab) 25 mg PO TID PRN PRN Reason: Dizziness or Vertigo Stop: 09/09/20 03:24 Meloxicam (Meloxicam 7.5 Mg Tab) 15 mg PO QAM [facility] Stop: 09/09/20 08:59 Last Admin: 08/11/20 08:56 Dose: 15 mg Documented by: Metformin HCl (Metformin Hcl 500 Mg Tab) 1,000 mg PO BIDM [facility] Stop: 09/09/20 08:59 Last Admin: 08/11/20 08:55 Dose: 1,000 mg Documented by: Metoprolol Succinate (Metoprolol Succ 25mg Ext Rel Tab) 25 mg PO QAM [facility] Stop: 09/09/20 08:59 Last Admin: 08/11/20 08:59 Dose: 25 mg Documented by: Miscellaneous (Remove Nicoderm Patch) 1 ea N/A DAILY@0859 [facility] Stop: 09/10/20 08:58 Last Admin: 08/11/20 08:53 Dose: Not Given Documented by: Nicotine (Nicotine 7 Mg/24 Hr Tdsy) 7 mg TD [facility] Stop: 09/09/20 11:29 Last Admin: 08/11/20 08:48 Dose: 7 mg Documented by: Pantoprazole Sodium (Pantoprazole 40 Mg Tab) 40 [facility] Stop: 09/09/20 11:29 Last Admin: 08/11/20 08:58 Dose: 40 mg Documented by: Potassium Chloride (Potassium Chloride Crtab 20 Meq Tabcr) 20 meq [facility] Stop: 09/09/20 08:59 Last Admin: 08/11/20 08:55 Dose: 20 meq Documented by: Sodium Chloride (Sodium Chloride 0.65% Na Soln 45 Ml ([place])) 1 - 2 sprays NA PRN PRN PRN Reason: Nasal Dryness/Congestion Stop: 09/09/20 02:47 Mental Health & Subst Abuse Tx Psychiatrist Name of Psychiatrist: Dr. Antoine Psychiatrist's Date of Appointment with Psychiatrist: 08/15/20 Time of Appointment with Psychiatrist: 11:00 am Therapist Name of Therapist: Radha Alvarez Therapist's Date of Therapist Appointment: 08/16/20 Time of Therapist Appointment: 12:00 PM Window Shade Cutter Name of Window Shade Cutter: D&A counselor and CM Post Discharge Appointments Primary Care Physician Name Of Family Doctor: Dr. Iverson (1) Overdose Encounter type: initial encounter Injury intent: intentional self-harm Qualified Code(s): T50.902A - Poisoning by unspecified drugs, medicaments and biological substances, intentional self-harm, initial encounter (2) Depression Depression Type: unspecified Qualified Code(s): F32.9 - Major depressive disorder, single episode, unspecified (3) Diabetes mellitus, type 2 Diabetes mellitus complication status: with unspecified complications Diabetes mellitus buttermaker continuous churn insulin use: without retirement use Qualified Code(s): E11.8 - Type 2 diabetes mellitus with unspecified complications
[2020-08-11] MEDS ORDERED: NICOTINE POLACRILEX 2 MG GUM MT PRN (10:52)
--- NOTE | 2020-08-11 12:22 | Psychiatric Progress Note ---
Date of Service August 11, 2020 Impression / Recommendations Impression 40-year-old female who lives with her boyfriend, has a history of multiple medical problems including heart disease, hepatitis C, hypertension, and diabetes, as well as methamphetamine and opiate abuse and depression, who presents after a suicide attempt by overdose in the context of an argument with her boyfriend. She describes an impulsive overdose which she stopped after taking only 9 tablets, as she thought about her son and changed her mind about wanting to . I strongly suspect this is also occurring in the context of relapse on opiates and cannabis, as she had run out of her Suboxone a week early and her UDS was + opiates and THC, although she is not forthcoming regarding her recent substance use. Inpatient treatment is medically necessary due to the severity of symptoms and risk for suicide if discharged prematurely. (1) Overdose: 08/10 - heartburn continues, offer pantoprazole (takes omeprazole OTC prn at home, nonformulary here). - Suicide checks for safety. -Group and therapy, work on discharge safety plan, involve OP supports as appropriate. (2) Depression: 08/10 -patient reports mood was well controlled on escitalopram and buspirone, and only decompensated yesterday in the context of an argument with her boyfriend. I also suspect her relapse/drug use is playing a role, as UDS + opiates, although she claims she only used cannabis. Although she reports a history of bipolar disorder, she does not endorse any symptoms consistent with manic episodes. For now we will continue Lexapro 20 mg and buspirone 15 mg twice daily, while gathering collateral information. 08/11 -patient is reporting improved mood and denying SI. She is slightly more forthcoming regarding her drug use today, and worsening mood was likely triggered by opiate abuse and running out of her Suboxone early. (3) Opiate abuse, continuous: 08/10 - UDS + opiates, patient denies using, but also indicates recent + UDS, not forthcoming with information. Follow-up on confirmatory results, and coordinate care with her substance abuse treatment therapist and physician at [facility]. -Continue Suboxone and coordinate w/ Dr. Max Garcia who is prescribing. Spoke with nurse, Amanda, at [facility]. Reviewed her admission, concern for relapse given UDS opiates. She had recently asked for an early refill, stating she lost her medication, then said she "found" another prescription. Her Suboxone that she brought in is empty, but she should have had several more days left. -Watch for signs of opiate withdrawal, although her Suboxone should help to mitigate that. -Recovery protocol. 08/11 -confirmatory test results still pending. Patient admits to running out of Suboxone a week early, opiate withdrawal symptoms for the past week, outpatient substance abuse clinic aware. She will follow up with them after discharge, nursing to call and see if they would be able to see her tomorrow. (4) Cannabis abuse: 08/10 - Continue to provide education about risk of substance abuse and recommendations to abstain from recreational drugs. C/w OP clinicians as above. (5) Methamphetamine abuse: Patient reports last use was approximately 2 years ago. D&A treatment as above. (6) Diabetes mellitus, type 2: Diabetic diet, continue home medication (7) Hypertension: Continue home medication, monitor vital signs (8) Hepatitis C: (9) Coronary artery disease: Continue home medications Risk Factors Assessment Male: No : Yes Do You Have Access To A Gun?: No Health Problems: Yes Mental Health Diagnoses: Yes Substance Use Disorders: Yes Previous Attempt: Yes Previous Psychiatric Hospitalization: Yes Hopelessness: Yes Smoker: Yes Protective Factors Assessment Faith Beliefs: No : No Responsible for Young Children: No Employed: No (disabled) Stable Relationships: No Supportive Family: No Good Rapport with Provider: No Interval History Identifying Information ROGER WEEKS is a 40-year-old F who currently lives in [place] with her boyfriend, has a history of multiple medical problems including diabetes, seizure disorder, hypertension, hepatitis C, hyperlipidemia, meth and opiate abuse, unspecified mood disorder, and anxiety, and was admitted on 08/10/20 01:48 on a 201 voluntary commitment for suicidality and an overdose on Lipitor. Chief Complaint "[]". Review of Systems Sleep Information Total Hours of Sleep: 3.75 Sleep Comments: pt awoke and had cereals with milk. pt c/o of being hungry. pt also awoke due to gettiing a roommate. pt on q-15 minute checks Meal Information Percent Meal Consumed - Breakfast: 100 Percent Meal Consumed - Dinner: 100 Subjective Subjective Patient was seen & assessed and interval progress reviewed with nursing and social work. She reports she ran out of Suboxone early but isn't "too sure" how that happened, saying someone might have stolen it, but she doesn't know who or when. Then says she ran out about a week ago. She reports poor sleep, getting up frequently overnight which she states is normal for her, getting up to eat, use the bathroom, etc. She denies SI, reports improved mood. She continues to evade direct questions about recent opiate use, but reports intermittent GI upset over the past week, diarrhea, and muscle aches/spasms in her legs. Physical Exam Psychiatric Orientation: alert and cooperative Dressed in the same clothes as yesterday, limited hygiene/grooming Eye Contact: + fair eye contact Motor Behavior: steady gait and station and no abnormal motor movements Speech: normal rate/rhythm/volume of speech Affect: euthymic affect "Doing better" Thought Process: goal directed thought process and + concrete thought process Thought Content: reality based without delusions Not forthcoming re: substance use Suicidal Thoughts: denies suicidal thoughts Homicidal Thoughts: denies homicidal thoughts Hallucinations: no auditory hallucinations and no visual hallucinations Cognition: attention grossly intact and language grossly intact Estimated Intelligence: + below average estimated intelligence Insight: + limited insight Judgement: + limited judgement Vital Signs (Past 24 Hours) Last Vital Signs Temp 36.7 C 08/11/20 06:58 Pulse 81 08/11/20 06:59 Resp 18 08/11/20 06:58 BP 112/72 08/11/20 06:59 Pulse Ox 100 08/10/20 03:02 Results & Data ([facility]) Current Inpatient Medications Current Inpatient Medications: Current Inpatient Medications Acetaminophen (Acetaminophen 325 Mg Tab) 650 mg PO Q4H PRN PRN Reason: Headache or Minor Fever Stop: 09/09/20 02:47 Al Hydrox/Mg Hydrox/Simethicone (Aluminum/Magnesium Susp 30 Ml Udc) 30 ml PO Q4H PRN PRN Reason: GI Upset Stop: 09/09/20 02:47 Last Admin: 08/10/20 20:41 Dose: 30 ml Documented by: Albuterol (Albuterol Hfa 8 Gm Inhaler) 2 puffs INH Q6 PRN PRN Reason: coughing/wheezing Stop: 09/09/20 03:20 Aspirin (Aspirin 81 Mg Ectab) 81 mg PO QAM [facility] Stop: 09/09/20 08:59 Last Admin: 08/11/20 08:54 Dose: 81 mg Documented by: Atorvastatin Calcium (Atorvastatin 40 Mg Tab) 80 mg PO HS [facility] Stop: 09/09/20 21:59 Last Admin: 08/10/20 20:40 Dose: 80 mg Documented by: Bismuth Subsalicylate (Bismuth Subsalicylate Liqd 236 Ml) 15 ml PO PRN PRN PRN Reason: Loose Stool Stop: 09/09/20 02:47 Buprenorphine/Naloxone (Buprenorphine/Naloxone 8/2 Mg Tab) 0.5 tab SL TID [facility] Stop: 09/09/20 08:59 Last Admin: 08/11/20 08:58 Dose: 0.5 tab Documented by: Buspirone HCl (Buspirone 15 Mg Tab) 15 mg PO BID [facility] Stop: 09/09/20 03:29 Last Admin: 08/11/20 08:54 Dose: 15 mg Documented by: Clopidogrel Bisulfate (Clopidogrel Bisulfate 75 Mg Tab) 75 mg PO QAM [facility] Stop: 09/09/20 08:59 Last Admin: 08/11/20 08:57 Dose: 75 mg Documented by: Escitalopram Oxalate (Escitalopram Oxalate 20 Mg Tab) 20 mg PO QAM [facility] Stop: 09/09/20 08:59 Last Admin: 08/11/20 08:56 Dose: 20 mg Documented by: Furosemide (Furosemide 20 Mg Tab) 20 mg PO QAM [facility] Stop: 09/09/20 08:59 Last Admin: 08/11/20 08:56 Dose: 20 mg Documented by: Gabapentin (Gabapentin 400 Mg Cap) 400 mg PO TID [facility] Stop: 09/09/20 03:29 Last Admin: 08/11/20 08:56 Dose: 400 mg Documented by: Glipizide (Glipizide 5 Mg Tab) 10 mg PO DAILYBD [facility] Stop: 09/09/20 17:14 Last Admin: 08/10/20 17:43 Dose: 10 mg Documented by: Hydroxyzine HCl (Hydroxyzine Hcl 25 Mg Tab) 50 mg PO HSZ PRN PRN Reason: Insomnia Stop: 09/09/20 02:47 Hydroxyzine HCl (Hydroxyzine Hcl 25 Mg Tab) 25 mg PO Q4H PRN PRN Reason: Anxiety Stop: 09/09/20 02:47 Last Admin: 08/10/20 04:20 Dose: 25 mg Documented by: Levetiracetam (Levetiracetam 500 Mg Tab) 500 mg PO BID [facility] Stop: 09/09/20 03:29 Last Admin: 08/11/20 08:55 Dose: 500 mg Documented by: Lisinopril (Lisinopril 2.5 Mg Tab) 2.5 mg PO QAM [facility] Stop: 09/09/20 08:59 Last Admin: 08/11/20 08:59 Dose: 2.5 mg Documented by: Magnesium Hydroxide (Magnesium Hydroxide Susp 30 Ml Udc) 30 ml PO DAILY PRN PRN Reason: Constipation Stop: 09/09/20 02:47 Meclizine HCl (Meclizine Hcl 25 Mg Tab) 25 mg PO TID PRN PRN Reason: Dizziness or Vertigo Stop: 09/09/20 03:24 Meloxicam (Meloxicam 7.5 Mg Tab) [facility] Stop: 09/09/20 08:59 Last Admin: 08/11/20 08:56 Dose: 15 mg Documented by: Metformin HCl (Metformin Hcl 500 Mg Tab) 1,000 mg PO BIDM [facility] Stop: 09/09/20 08:59 Last Admin: 08/11/20 08:55 Dose: 1,000 mg Documented by: Metoprolol Succinate (Metoprolol Succ 25mg Ext Rel Tab) 25 mg PO QAM [facility] Stop: 09/09/20 08:59 Last Admin: 08/11/20 08:59 Dose: 25 mg Documented by: Miscellaneous (Remove Nicoderm Patch) 1 ea N/A DAILY@[id number] [facility] Stop: 09/10/20 08:58 Last Admin: 08/11/20 08:53 Dose: Not Given Documented by: Nicotine (Nicotine 7 Mg/24 Hr Tdsy) 7 mg TD [facility] Stop: 09/09/20 11:29 Last Admin: 08/11/20 08:48 Dose: 7 mg Documented by: Nicotine Polacrilex (Nicotine Polacrilex 2 Mg Gum) 1 piece MT Q2H PRN PRN Reason: cravings Stop: 09/10/20 10:51 Pantoprazole Sodium (Pantoprazole 40 Mg Tab) 40 mg PO [facility] Stop: 09/09/20 11:29 Last Admin: 08/11/20 08:58 Dose: 40 mg Documented by: Potassium Chloride (Potassium Chloride Crtab 20 Meq Tabcr) 20 meq PO QAM [facility] Stop: 09/09/20 08:59 Last Admin: 08/11/20 08:55 Dose: 20 meq Documented by: Sodium Chloride (Sodium Chloride 0.65% Na Soln 45 Ml ([place])) 1 - 2 sprays NA PRN PRN PRN Reason: Nasal Dryness/Congestion Stop: 09/09/20 02:47 Mental Health & Subst Abuse Tx Psychiatrist Name of Psychiatrist: Dr. Antoine Psychiatrist's Date of Appointment with Psychiatrist: 08/15/20 Time of Appointment with Psychiatrist: 11:00 am Therapist Name of Therapist: Radha Alvarez Therapist's Date of Therapist Appointment: 08/16/20 Time of Therapist Appointment: 12:00 PM Missile Mechanic Name of Missile Mechanic: D&A counselor and CM Post Discharge Appointments Primary Care Physician Name Of Family Doctor: Dr. Iverson (1) Overdose Encounter type: initial encounter Injury intent: intentional self-harm Qualified Code(s): T50.902A - Poisoning by unspecified drugs, medicaments and biological substances, intentional self-harm, initial encounter (2) Depression Depression Type: unspecified Qualified Code(s): F32.9 - Major depressive disorder, single episode, unspecified (3) Diabetes mellitus, type 2 Diabetes mellitus complication status: with unspecified complications Diabetes mellitus buttermaker continuous churn insulin use: without detention use Qualified Code(s): E11.8 - Type 2 diabetes mellitus with unspecified complications
[2020-08-11] MEDS: glipiZIDE 5 MG TAB PO SCH (17:27)
[2020-08-11] MEDS: ATORVASTATIN 40 MG TAB PO SCH (20:28)
[2020-08-11] MEDS: ALUMINUM/MAGNESIUM SUSP 30 ML UDC PO PRN (22:43)
[2020-08-12] MEDS: ASPIRIN 81 MG ECTAB PO SCH (08:29)
[2020-08-12] MEDS: busPIRone 15 MG TAB PO SCH (08:29)
[2020-08-12] MEDS: metFORMIN HCL 500 MG TAB PO SCH (08:29)
[2020-08-12] MEDS: FUROSEMIDE 20 MG TAB PO SCH (08:30)
[2020-08-12] MEDS: POTASSIUM CHLORIDE CRTAB 20 MEQ TABCR PO SCH (08:30)
[2020-08-12] MEDS: levETIRAcetam 500 MG TAB PO SCH (08:30)
[2020-08-12] MEDS: ESCITALOPRAM OXALATE 20 MG TAB PO SCH (08:30)
[2020-08-12] MEDS: PANTOprazole 40 MG TAB PO SCH (08:31)
[2020-08-12] MEDS: MELOXICAM 7.5 MG TAB PO SCH (08:31)
[2020-08-12] MEDS: GABAPENTIN 400 MG CAP PO SCH (08:31)
[2020-08-12] MEDS: CLOPIDOGREL BISULFATE 75 MG TAB PO SCH (08:31)
[2020-08-12] MEDS: BUPRENORPHINE/NALOXONE 8/2 MG TAB SL SCH (08:32)
[2020-08-12] MEDS: METOPROLOL SUCC 25MG EXT REL TAB PO SCH (08:32)
[2020-08-12] MEDS: lisinopril 2.5 MG TAB PO SCH (08:32)
[2020-08-12] MEDS ORDERED: DESTROY THIS MEDICATION ONE (10:12)
--- NOTE | 2020-08-12 10:18 | Discharge Summary ---
Date of Service August 12, 2020 History of Present Illness Patient presented to the ER last night after overdosing on Lipitor 80 mg tablets in a suicide attempt, stating she took approximately #9 pills around 8 PM with intent to harm herself. She said she plan to overdose on all of her pills, but then changed her mind before taking the mall, and called 911. She reported feeling depressed as she is not able to see her 10-year-old son and is having relationship problems with her boyfriend, whom she had argued with her earlier in the evening. Labs notable for WBC 15.75, UDS + THC and opiates, UA with trace protein, ketones, and > 30 epithelial cells, CMP with potassium 3.2, TSH 1.510, and negative Covid screen. She had GI upset in the ER and received a GI cocktail. She signed in voluntarily, and was continued on her home medications including Suboxone, Keppra, buspirone, Neurontin, Escitalopram. On my assessment, she states her mood was "good" until yesterday morning, when her boyfriend started yelling at her. She thinks he was upset about something else (that his ex-girlfriend's brother would not lend him any money), and "took it out on me." States he wanted money as "we needed cigarettes." She felt "he wasn't there for me, didn't care how I felt." He then calmed down, made dinner, and they sat down to watch TV. He then wanted to have sex and she wouldn't, so he said she had to leave (only his name is on the lease). She got overwhelmed and impulsively took the overdose, initially planning to take all her meds, but then stopped as "my son needs me." Her 10 y/o son lives with his father in , and she has no custody or visitation due to her drug use. She indicates recent + UDS and notes she is in violation of her probation and "hope my hospital security officer won't find out." She has spoken to her boyfriend and says they made up and she plans to return to live with him at discharge. Denies symptoms of david, psychosis, but claims she is diagnosed with "bipolar, that's what the Buspar is for." Physical Exam Psychiatric Orientation: oriented x 3 and cooperative Apperance: appropriately dressed and appropriately groomed Eye Contact: + fair eye contact Motor Behavior: steady gait and station Speech: normal rate/rhythm/volume of speech Affect: euthymic affect "A lot better." Thought Process: goal directed thought process Thought Content: reality based without delusions Suicidal Thoughts: denies suicidal thoughts Homicidal Thoughts: denies homicidal thoughts Hallucinations: no auditory hallucinations, no visual hallucinations and no tactile hallucinations Cognition: recent memory grossly intact, remote memory grossly intact and language grossly intact Estimated Intelligence: average estimated intelligence Insight: + fair insight Judgement: + fair judgement Vital Signs (Past 24 Hours) Last Vital Signs Temp 36.9 C 08/12/20 06:42 Pulse 87 08/12/20 06:43 Resp 18 08/12/20 06:42 BP 120/77 08/12/20 06:43 Pulse Ox 100 08/10/20 03:02 Principal Diagnosis Bipolar II Disorder Psychiatric Data During the course of hospitalization the patient was offered various modalities of psychiatric treatment and education. These included individual,Group, recreational, and chemotherapies.In addition, the In addition, the patient previous the patient's outpatient psychiatric medications were continued.In addition, the patient previous the patient's outpatient psychiatric medications were continued. These included buspirone 15 mg twice a day, and Lexapro 20 mg twice a day.The patient indicated that she tolerated these medications well and offered no complaints Of any adverse effects the patient indicated that she tolerated these medications well and offered no complaints Of any adverse effects of any adverse effects. Of any adverse effects of any adverse effects. Of any adverse effects of any adverse effects. She participated initially, the patient continued to complain of a certain amount of GI distress secondary to her Lipitor overdose the patient indicated that she tolerated these medications well and offered no complaints of any adverse effects of any adverse effects. She participated initially, the patient continued to complain of a certain amount of GI distress secondary to her Lipitor overdose, but this problem resolved fairly quickly. The patient indicated that she tolerated these medications well and offered no complaints.Of any adverse effects of any adverse effects. She participated initially, the patient continued to complain of a certain amount of GI distress secondary to her Lipitor overdose, but this problem resolved fairly quickly. The patient participated actively in treatment And focused primarily on improving her individual coping strategies. The patient said that one of the most helpful things for her during the hospitalization was that she felt that someone was listening to her and understood her problems. Accordingly, we are encouraging the patient to Work collaboratively with her outpatient teamIn order to enjoy the same advantage.Patient expressed regret regarding her suicide attempt and said that shortly after taking the overdose it occurred to her that she could have handled the problem she was experiencing much more appropriately and safely by addressing the through talk therapy and using her support System. Patient's affect brightened considerably, and she began to report that her mood was "much better" and "good." By the day of discharge the patient was continuing to report that she was not having thoughts of suicide. She was also reporting that her mood had improved substantially And she successfully completed her plan for community safety.The treatment team was in agreement that the patient received maximum benefit from her inpatient psychiatric stayAnd was now clinically stable to the degree that she Is able to safely and effectively continue her treatment on an outpatient basis. Day of Discharge Assessment On the day of discharge, the patient was found to be fully cooperative, pleasant, and appropriately dressed and groomed. Her speech was delivered at a normal rate and volume, and was spontaneous. The patient described her mood as being "much better" and "good." More specifically, she was reporting that she was not feeling depressed and, instead, was feeling quite hopeful and eager to return home. The patient's affect was bright. Her thought processes demonstrated tight associations. Her thought content was devoid of any psychotic features. As above, she was focused on her improved individual coping strategies, Particularly within the context of her less than fully satisfactory Romantic relationship. She did not provide any evidence of the presence of any perceptual disturbances. She convincingly denied suicidal ideation, was future oriented, and was conversant with her community safety plan, including triggers, signs, and both solitary coping strategies as well as coping strategies that would involve her identified support system. The patient's intelligence was estimated to be at least average. Her judgment and insight were evaluated as being fair. Transition of Care Transition Of Care Record: was reviewed with the patient Advance Directives Advance Directives Information Provided: Yes Advance Directives: No Mental Health Advance Directive: No Advance Directives on File: No Living Will: No Power of Solar Sales Assessor: No Advance Directives Reason:: Declines as Mental Health Visit. Risk Factors Assessment Male: No : Yes Do You Have Access To A Gun?: No Health Problems: Yes Mental Health Diagnoses: Yes Substance Use Disorders: Yes Previous Attempt: Yes Previous Attempt; Highly Lethal: No Family History of Suicide: No Previous Psychiatric Hospitalization: Yes Hopelessness: Yes Smoker: Yes Protective Factors Assessment Catholic Beliefs: No : No Responsible for Young Children: No Employed: No (disabled) Stable Relationships: No Supportive Family: No Good Rapport with Provider: No Absence of Any Risk Factors Above: No Tobacco Cessation at Discharge Tobacco Cessation Medication Prescribed at Discharge: Offered & Pt Refused Practical counseling provided including: recognizing danger situations, developing coping skills and providing basic information about quitting Tobacco Cessation Outpatient Followup: Referral for outpatient treatment offered and refused Total Time Total Time Spent: Greater Than 30 Minutes Total Time Includes: Examination of the patient, Discharge Planning, Medication Reconciliation and Communication with other providers Discharge Data Lab Results 08/09/20 08/09/20 08/09/20 21:35 21:35 21:44 WBC 15.75 H RBC 4.37 Hgb 9.9 L Hct 32.3 L MCV 73.9 L MCH 22.7 L MCHC 30.7 L RDW Std Deviation 47.0 H RDW Coeff of Hannah 17.2 H Plt Count 430 H MPV 10.0 Immature Gran % (Auto) 0.5 Neut % (Auto) 51.8 Lymph % (Auto) 35.6 Stone % (Auto) 7.2 Eos % (Auto) 4.5 Baso % (Auto) 0.4 Neut # (Auto) 8.15 H Lymph # (Auto) 5.61 H Stone # (Auto) 1.13 H Eos # (Auto) 0.71 H Baso # (Auto) 0.07 Immature Gran # (Auto) 0.08 H RBC Morphology Unremarkable Sodium Potassium Chloride Carbon Dioxide Anion Gap BUN Creatinine Est Cr Clr Drug Dosing Est GFR ( Amer) Est GFR (Non-Af Amer) BUN/Creatinine Ratio Glucose Calcium Total Bilirubin AST ALT Alkaline Phosphatase Total Protein Albumin Globulin Albumin/Globulin Ratio TSH HCG, Qual Urine Color Yellow Urine Appearance Clear Urine pH 5.5 Ur Specific [place] 1.021 Urine Protein Trace H Urine Glucose (UA) Negative Urine Ketones Trace H Urine Blood Negative Urine Nitrite Negative Urine Bilirubin Negative Urine Urobilinogen Negative Ur Leukocyte Esterase Negative Urine WBC (Auto) 1-5 Urine RBC (Auto) 0-4 U Hyaline Cast (Auto) 5-10 H U Epithel Cells (Auto) >30 H Urine Bacteria (Auto) Negative Salicylates Urine Opiates Screen Pos H Ur Methadone, Qual Neg Acetaminophen Urine Barbiturates Neg Ur Phencyclidine (PCP) Neg U Amphetamin/Meth Scrn Neg MDMA (Ecstasy) Screen Neg U Benzodiazepines Scrn Neg Ur Cocaine Metabolite Neg U Marijuana (THC) Screen Pos H Ethyl Alcohol mg/dL COVID-19 Eval Order SARS-CoV-2 (PCR) Influenza Type A (PCR) Influenza Type B (PCR) RSV (RT-PCR) 08/09/20 08/09/20 08/09/20 21:44 21:44 21:44 WBC RBC Hgb Hct MCV MCH MCHC RDW Std Deviation RDW Coeff of Hannah Plt Count MPV Immature Gran % (Auto) Neut % (Auto) Lymph % (Auto) Stone % (Auto) Eos % (Auto) Baso % (Auto) Neut # (Auto) Lymph # (Auto) Stone # (Auto) Eos # (Auto) Baso # (Auto) Immature Gran # (Auto) RBC Morphology Sodium 140 Potassium 3.2 L Chloride 110 H Carbon Dioxide 23 Anion Gap 7.0 BUN 9 Creatinine 0.87 Est Cr Clr Drug Dosing 87.4 Est GFR ( Amer) 95.2 Est GFR (Non-Af Amer) 82.2 BUN/Creatinine Ratio 10.7 Glucose 114 H Calcium 9.5 Total Bilirubin 0.3 AST 14 L ALT 20 Alkaline Phosphatase 98 Total Protein 7.5 Albumin 3.6 Globulin 3.9 Albumin/Globulin Ratio 0.9 TSH 1.510 HCG, Qual Urine Color Urine Appearance Urine pH Ur Specific [place] Urine Protein Urine Glucose (UA) Urine Ketones Urine Blood Urine Nitrite Urine Bilirubin Urine Urobilinogen Ur Leukocyte Esterase Urine WBC (Auto) Urine RBC (Auto) U Hyaline Cast (Auto) U Epithel Cells (Auto) Urine Bacteria (Auto) Salicylates 7.0 Urine Opiates Screen Ur Methadone, Qual Acetaminophen < 2 L Urine Barbiturates Ur Phencyclidine (PCP) U Amphetamin/Meth Scrn MDMA (Ecstasy) Screen U Benzodiazepines Scrn Ur Cocaine Metabolite U Marijuana (THC) Screen Ethyl Alcohol mg/dL < 3.0 COVID-19 Eval Order SARS-CoV-2 (PCR) Influenza Type A (PCR) Influenza Type B (PCR) RSV (RT-PCR) 08/09/20 08/09/20 08/09/20 21:44 23:40 23:40 WBC RBC Hgb Hct MCV MCH MCHC RDW Std Deviation RDW Coeff of Hannah Plt Count MPV Immature Gran % (Auto) Neut % (Auto) Lymph % (Auto) Stone % (Auto) Eos % (Auto) Baso % (Auto) Neut # (Auto) Lymph # (Auto) Stone # (Auto) Eos # (Auto) Baso # (Auto) Immature Gran # (Auto) RBC Morphology Sodium Potassium Chloride Carbon Dioxide Anion Gap BUN Creatinine Est Cr Clr Drug Dosing Est GFR ( Amer) Est GFR (Non-Af Amer) BUN/Creatinine Ratio Glucose Calcium Total Bilirubin AST ALT Alkaline Phosphatase Total Protein Albumin Globulin Albumin/Globulin Ratio TSH HCG, Qual Negative Urine Color Urine Appearance Urine pH Ur Specific [place] Urine Protein Urine Glucose (UA) Urine Ketones Urine Blood Urine Nitrite Urine Bilirubin Urine Urobilinogen Ur Leukocyte Esterase Urine WBC (Auto) Urine RBC (Auto) U Hyaline Cast (Auto) U Epithel Cells (Auto) Urine Bacteria (Auto) Salicylates Urine Opiates Screen Ur Methadone, Qual Acetaminophen Urine Barbiturates Ur Phencyclidine (PCP) U Amphetamin/Meth Scrn MDMA (Ecstasy) Screen U Benzodiazepines Scrn Ur Cocaine Metabolite U Marijuana (THC) Screen Ethyl Alcohol mg/dL COVID-19 Eval Order Cancelled SARS-CoV-2 (PCR) Cancelled Influenza Type A (PCR) Cancelled Influenza Type B (PCR) Cancelled RSV (RT-PCR) Cancelled 08/09/20 08/09/20 23:58 23:58 WBC RBC Hgb Hct MCV MCH MCHC RDW Std Deviation RDW Coeff of Hannah Plt Count MPV Immature Gran % (Auto) Neut % (Auto) Lymph % (Auto) Stone % (Auto) Eos % (Auto) Baso % (Auto) Neut # (Auto) Lymph # (Auto) Stone # (Auto) Eos # (Auto) Baso # (Auto) Immature Gran # (Auto) RBC Morphology Sodium Potassium Chloride Carbon Dioxide Anion Gap BUN Creatinine Est Cr Clr Drug Dosing Est GFR ( Amer) Est GFR (Non-Af Amer) BUN/Creatinine Ratio Glucose Calcium Total Bilirubin AST ALT Alkaline Phosphatase Total Protein Albumin Globulin Albumin/Globulin Ratio TSH HCG, Qual Urine Color Urine Appearance Urine pH Ur Specific [place] Urine Protein Urine Glucose (UA) Urine Ketones Urine Blood Urine Nitrite Urine Bilirubin Urine Urobilinogen Ur Leukocyte Esterase Urine WBC (Auto) Urine RBC (Auto) U Hyaline Cast (Auto) U Epithel Cells (Auto) Urine Bacteria (Auto) Salicylates Urine Opiates Screen Ur Methadone, Qual Acetaminophen Urine Barbiturates Ur Phencyclidine (PCP) U Amphetamin/Meth Scrn MDMA (Ecstasy) Screen U Benzodiazepines Scrn Ur Cocaine Metabolite U Marijuana (THC) Screen Ethyl Alcohol mg/dL COVID-19 Eval Order CovFluRsv at [facility] SARS-CoV-2 (PCR) NEGATIVE Influenza Type A (PCR) Negative Influenza Type B (PCR) Negative RSV (RT-PCR) Negative Hospital Course (1) Overdose: 08/10 - heartburn continues, offer pantoprazole (takes omeprazole OTC prn at home, nonformulary here). - Suicide checks for safety. -Group and therapy, work on discharge safety plan, involve OP supports as appropriate.\\\\08/12 (2) Depression: 08/10 -patient reports mood was well controlled on escitalopram and buspirone, and only decompensated yesterday in the context of an argument with her boyfriend. I also suspect her relapse/drug use is playing a role, as UDS + opiates, although she claims she only used cannabis. Although she reports a history of bipolar disorder, she does not endorse any symptoms consistent with manic episodes. For now we will continue Lexapro 20 mg and buspirone 15 mg twice daily, while gathering collateral information. 08/11 -patient is reporting improved mood and denying SI. She is slightly more forthcoming regarding her drug use today, and worsening mood was likely triggered by opiate abuse and running out of her Suboxone early. 08/12 - Patient is continuing to report that her mood has improved considerably. She also has been consistently denying any further suicidal ideations. She points out that following her delivered overdose of Lipitor she quickly realized that this was not the solution to her problem and, further, that she did not want to . Accordingly, she called 911 and came to the hospital. She has developed a reasonable plan for community safety and is conversant with it.Patient is also tolerating her psychiatric medications, namely buspirone and Lexapro and assures us that she will be adherent with both of these medications following discharge. (3) Opiate abuse, continuous: 08/10 - UDS + opiates, patient denies using, but also indicates recent + UDS, not forthcoming with information. Follow-up on confirmatory results, and coordinate care with her substance abuse treatment therapist and physician at [facility]. -Continue Suboxone and coordinate w/ Dr. Max Garcia who is prescribing. Spoke with nurse, Amanda, at [facility]. Reviewed her admission, concern for relapse given UDS opiates. She had recently asked for an early refill, stating she lost her medication, then said she "found" another prescription. Her Suboxone that she brought in is empty, but she should have had several more days left. -Watch for signs of opiate withdrawal, although her Suboxone should help to mitigate that. -Recovery protocol. 08/11 -confirmatory test results still pending. Patient admits to running out of Suboxone a week early, opiate withdrawal symptoms for the past week, outpatient substance abuse clinic aware. She will follow up with them after discharge, nursing to call and see if they would be able to see her tomorrow. 08/12 - The patient is not currently showing physical symptoms of withdrawal. She does report that she has no Suboxone at home and is contacting her prescribing physicianTo see if she can acquire a small supply pending her next appointment at the Suboxone clinic to which she attends. -She also is reporting that she has committed herself to sustaining abstinence from opioids. DiscussParticipation in self-help groups such as Narcotics Anonymous was asked, but the patient feels that at this point she has been "clean" long enough to Render participation in self-help groups unnecessary.Education was provided. (4) Cannabis abuse: 08/10 - Continue to provide education about risk of substance abuse and recommendations to abstain from recreational drugs. C/w OP clinicians as above. 08/12 -As above (5) Methamphetamine abuse: Patient reports last use was approximately 2 years ago. D&A treatment as above. (6) Diabetes mellitus, type 2: Diabetic diet, continue home medication (7) Hypertension: Continue home medication, monitor vital signs (8) Hepatitis C: (9) Coronary artery disease: Continue home medications Mental Health & Subst Abuse Tx Psychiatrist Name of Psychiatrist: [facility] - Dr. Antoine Psychiatrist's Date of Appointment with Psychiatrist: 08/18/20 Time of Appointment with Psychiatrist: 4:30 p.m. Psychiatric Appointment Comment: [place] office Therapist Name of Therapist: Radha Alvarez Therapist's Date of Therapist Appointment: 08/16/20 Time of Therapist Appointment: 12:00 PM Budget Examiner Name of Budget Examiner: . Post Discharge Appointments Primary Care Physician Name Of Family Doctor: René Iverson Primary [facility] Date of Appointment with PCP: 08/23/20 Time of Appointment with PCP: 12:05 p.m. Provider Appointment Comment: Bao [facility]ender Smoking Cessation Counseling Tobacco Cessation Medication Prescribed at Discharge: Offered & Pt Refused Contact Information Discharge Discharge Address: [address] [place] [address] Discharge Plan Discharge Items Patient Disposition: Home - Self-Care Reason For Visit: BIPOLAR DISORDER Discharge Diagnosis: Bipolar Disorder II Activity: Resume your previous activity Non-emergency contact: Primary Care Provider and Psychiatrist Call non-emergency contact if: you have any medication questions and your symptoms worsen Follow-up/Referrals: Irvin Iverson MD [Primary Care Provider] - Diet: Carb Consistent or DM2 Addtl Attending Provider Instructions: SPECIAL CARE INSTRUCTIONS: 1. Follow through with your scheduled aftercare appointments. If unable to keep an appointment, please call to reschedule. 2. Take your medication only as prescribed. Medication should not be changed or stopped without the approval of your doctor. In the event of worsening symptoms or concerns about side effects, contact your doctor immediately. 3. Utilize new healthy coping skills, anger management skills, and stress management skills learned during your hospitalization. Journal feelings and process them with a support person. Identify stressors or situations that may result in relapse, deterioration or inappropriate behaviors and develop a plan to deal with those issues. 4. If your coping skills are ineffective and you are in crisis, contact your outpatient providers for direction. If unable to reach your providers, please call the [facility] CRISIS LINE AT , go to the [facility] walk-in center at [address] [place] [address], [address], [place], or go to the closest Emergency Room. 5. Avoid alcohol and un-prescribed drugs. 6. You have been provided with the Mental Health Advance Directives Pamphlet for your review. AFTERCARE APPOINTMENTS: * Please call your insurance company prior to your scheduled appointment to confirm your aftercare providers are covered. Take your insurance information to your appointments. WHO TO CALL AND WHEN: Medical Emergencies: For questions or emergencies related to your hospital stay, please contact the Inpatient Behavioral Health Unit at [phone]. A shovel log loader operator is on-call 19/11 for the Behavioral Health Unit for emergencies At any time you feel your situation is an emergency, you may also call 911 immediately. Pending Studies at Discharge: No Stand-Alone Forms: My [facility] [employer], Opioid Pain Management, Smoking Cessation Medications and DC Order Prescriptions: Continued levetiracetam [Keppra] 500 mg Tablet 500 mg PO BID RF: 0 escitalopram oxalate [Lexapro] 20 mg tablet 20 mg PO QAM RF: 0 metformin 1,000 mg Tablet 1,000 mg PO BID RF: 0 atorvastatin 80 mg Tablet 80 mg PO HS RF: 0 nitroglycerin [Nitrostat] 0.4 mg Tablet, Sublingual 0.4 mg sublingual UD PRN (Reason: Chest Pain) RF: 0 albuterol sulfate 90 mcg/actuation HFA aerosol inhaler 2 puff INHALATION Q6 PRN (Reason: Shortness Of Breath Or Wheezing) RF: 0 buspirone 15 mg tablet 15 mg PO BID RF: 0 medroxyprogesterone [Depo-Provera] 150 mg/mL Syringe 150 mg IM Q3M RF: 0 buprenorphine-naloxone [Suboxone] 8-2 mg film 0.5 ea sublingual TID RF: 0 glipizide 10 mg tablet 10 mg PO DAILYBD RF: 0 clopidogrel 75 mg Tablet 75 mg PO QAM 30 Days Qty: 30 RF: 2 aspirin 81 mg Tablet,Delayed Release (Dr/Ec) 81 mg PO QAM 30 Days Qty: 30 RF: 2 lisinopril 5 mg Tablet 2.5 mg PO QAM RF: 0 metoprolol succinate 25 mg tablet extended release 24 hr 25 mg PO DAILY RF: 0 Flovent HFA 220 mcg/actuation Hfa Aerosol Inhaler 2 puff INHALATION BID RF: 0 ferrous sulfate 325 mg (65 mg iron) Tablet,Delayed Release (Dr/Ec) 325 mg PO QDB Qty: 30 RF: 0 meloxicam 15 mg tablet 15 mg PO DAILY RF: 0 gabapentin 400 mg capsule 400 mg PO TID RF: 0 furosemide [Lasix] 20 mg tablet 20 mg PO DAILY RF: 0 potassium chloride [Klor-Con M20] 20 mEq tablet,ER particles/crystals 20 meq PO DAILY RF: 0 Discharge Orders: Discharge Order (Routine); Ordered 08/12/20 Ordered By: Sandeep Espinal Admission Data Admit Date/Time: 08/10/20 01:48 Attending Provider: Bridget Hansen Admit Provider: Ryan Quintanilla I. Primary Care Provider: Irvin Iverson Other Interventions: PSY Interdisciplinary Discharge Planning Last Done: 08/12/20 08:20 Coding [place] [address] D/C day mgmt > 30 min Patient Type Established History Expanded Problem Focused Exam Expanded Problem Focused Medical Decision Making Moderate Complexity Diagnoses Overdose T50.902A Encounter type: initial encounter Injury intent: intentional self-harm Depression F32.9 Depression Type: unspecified Opiate abuse, continuous F11.10 Cannabis abuse F12.10 Methamphetamine abuse F15.10 Diabetes mellitus, type 2 E11.8 Diabetes mellitus complication status: with unspecified complications Diabetes mellitus penitentiary insulin use: without vermin exterminator use Hypertension I10 Hepatitis C B19.20 Coronary artery disease I25.10 Time Spent (min) 45
[2020-08-12 12:12] LABS: Codeine Urine NEGATIVE ng/mL (<50); Hydrocodone Urine NEGATIVE ng/mL (<50); Hydromor Urine NEGATIVE ng/mL (<50); Marijuana Quant, GCMS Urine 74 ng/mL (<5); Morphine Urine 486 ng/mL (<50); Norhydrocodone Conf Ur NEGATIVE ng/mL (<50); Noroxycodone Urine NEGATIVE ng/mL (<50); Oxycodone Urine NEGATIVE ng/mL (<50); Oxymorph Urine NEGATIVE ng/mL (<50)
== END 2020-08-12 11:00 | disposition home or self-care (01) | DRG 885 ==
LOC: ED 21:09 → 3S 08-10 01:48

== ENCOUNTER 2020-09-18 11:21 | Inpatient (IN) ==
[2020-09-18] MEDS ORDERED: RAPID SEQUENCE INDUCTION BAG ONE (11:27)
[2020-09-18] MEDS ORDERED: ALBUT/IPRATROP 3MG/0.5MG NEB 3 ML VIAL NEB ONE (11:30)
[2020-09-18] MEDS ORDERED: ALBUT/IPRATROP 3MG/0.5MG NEB 3 ML VIAL ONE (11:30)
[2020-09-18] MEDS ORDERED: NITROGLYCERIN 2% OINTMENT 30GM TUBE EXT STA (11:36)
[2020-09-18] MEDS ORDERED: FUROSEMIDE 40 MG/4 ML VIAL IV STA ×2 (11:36→12:42)
[2020-09-18] MEDS ORDERED: NITROGLYCERIN 2% OINTMENT 30GM TUBE ONE (11:37)
[2020-09-18] MEDS ORDERED: FUROSEMIDE 10 MG/ML 10 ML VIAL IV ONE (11:37)
--- NOTE | 2020-09-18 11:42 | XRay Report ---
XR chest 1V portable HISTORY: Shortness of breath. COMPARISON: Chest 05/23/2020. FINDINGS: The cardiac silhouette remains enlarged. Near diffuse bilateral airspace opacities which olivares ve progressed in the interval. No pneumothorax. IMPRESSION: Significant progression of the near diffuse bilateral airspace opacities. ACT 112: Negative or not required by law. Electronically signed by: Arnol Kenney M.D. 09/18/2020 11:40 AM
[2020-09-18 11:46] LABS: Base Excess VBG -11.1 mEq/L; pH VBG 7.12 (7.36-7.41)
[2020-09-18] MEDS ORDERED: STAT IV Infusion **Titration per Protocol STA ×4 (11:52→19:18)
[2020-09-18 11:54] LABS: Hematocrit (blood only) 33.1 % (37-47); Mean Corpuscular Hemoglobin 23.1 pg (25-34); Mean Corpuscular Hgb Conc 30.2 g/dL (32-36); Mean Corpuscular Volume 76.4 fL (80-100); Mean Platelet Volume 10.2 fL (7.4-10.4); Nucleated RBC # (auto) 0.17 K/uL (0-0); Nucleated RBC % (auto) 0.4 %; Platelet Count 538 K/uL (130-400); RDW Coefficient of Variation 21.2 % (11.5-14.5); Red Blood Count 4.33 M/uL (4.2-5.4); White Blood Count 48.95 K/uL (4.8-10.8)
[2020-09-18] MEDS ORDERED: CEFEPIME 2,000 MG/20 ML VIAL IV STA (11:55)
[2020-09-18 11:56] LABS: INR 1.2 (0.9-1.1); Partial Thromboplastin Time 25.9 Seconds (21.0-31.0)
[2020-09-18] MEDS ORDERED: propofoL 1,000 MG/100 ML VIAL IV SCH (12:00)
[2020-09-18 12:02] LABS: Albumin Level 3.3 gm/dl (3.4-5.0); BUN Creatinine Ratio 9.4 (10-20); Calcium 8.8 mg/dl (8.5-10.1); Creatinine Clr Calc Pharmacy 74.3 ml/min; Est GFR (African American) 74.2 ml/min; Magnesium 1.9 mg/dl (1.8-2.4); Potassium 4.2 mmol/L (3.5-5.1)
[2020-09-18 12:05] LABS: Pregnancy Test, Serum Negative (Negative)
[2020-09-18 12:07] LABS: Anisocytosis Present; Basophils % (auto) 0.2 %; Eosinophils # (auto) 0.05 K/uL (0-0.5); Eosinophils % (auto) 0.1 %; Immature Granulocytes # (auto) 0.51 K/uL (0.00-0.02); Lymphocytes # (auto) 5.18 K/uL (1.2-3.4); Lymphocytes % (auto) 10.6 %; Microcytosis Present; Monocytes # (auto) 2.56 K/uL (0.11-0.59); Monocytes % (auto) 5.2 %; Neutrophils # (auto) 40.55 K/uL (1.4-6.5); Neutrophils % (auto) 82.9 %; Poikilocytosis Present
[2020-09-18 12:09] LABS: Albumin Globulin Ratio 0.7 (0.9-2); Bilirubin,Total 0.9 mg/dl (0.2-1); Globulin 4.4 gm/dl (2.5-4.0); Total Protein 7.7 gm/dl (6.4-8.2); Troponin I 0.264 ng/ml (0-0.045)
--- NOTE | 2020-09-18 12:15 | XRay Report ---
XR chest 1V portable HISTORY: post intubation COMPARISON: Chest 09/18/2020. FINDINGS: The endotracheal tube terminates approximately 1.7 cm from the misti. Near diffuse bilater al airspace opacities have slightly improved. There appear to be small bilateral pleural effusions. N o pneumothorax. IMPRESSION: 1. The endotracheal tube terminates 1.7 cm from the misti. 2. Near diffuse bilateral airspace opacities have slightly improved. 3. Suspect small bilateral pleural effusions. ACT 112: Negative or not required by law. Electronically signed by: Arnol Kenney M.D. 09/18/2020 12:13 PM
[2020-09-18 12:32] LABS: Base Excess ABG -9.7 mEq/L (-9-1.8); HCO3 ABG 20 mmol/L (19-24); PCO2 ABG 60 mmHg (35-46); PO2 ABG 71 mmHg (80-95)
[2020-09-18 12:36] LABS: pH ABG 7.13 (7.35-7.45)
[2020-09-18 12:37] LABS: Allen Test Pos (Pos)
[2020-09-18] MEDS: PROPOFOL BOLUS FROM BAG IV PRN ×12 (12:38→14:45)
[2020-09-18] MEDS ORDERED: ALBUT/IPRATROP 3MG/0.5MG NEB 3 ML VIAL INH PRN (12:42)
[2020-09-18] MEDS ORDERED: ICU MODERATE HYPERGLYCEMIA PROTOCOL ONE (12:42)
--- NOTE | 2020-09-18 12:44 | Critical Care Consultation ---
Date of Consultation September 18, 2020 Assessment & Plan (1) Hypoxia: (2) Acute CHF (congestive heart failure): (3) Acute on chronic heart failure with preserved ejection fraction (HFpEF): (4) Acute hypoxemic respiratory failure: (5) Pulmonary edema cardiac cause: (6) Lactic acidosis: Impression: 40-year-old female with complex medical history including valvular heart disease, medical noncompliance, obesity, and diastolic heart failure admitted with flash pulmonary edema and profound hypertension. Recommendations: 1. Neurologic: Continue sedation with propofol and as needed fentanyl. The patient has a longstanding history of substance abuse and is on Suboxone in the outpatient setting. Will need to observe for signs of withdrawal. Check urine drug screen. 2. Cardiovascular: Flash pulmonary edema: Continue efforts at diuresis and optimization of blood pressure control. We will place her on hydralazine as needed. Wean off Nitropaste. Cardiology consult will be obtained. Serial troponins and follow-up echocardiogram. 3. Pulmonary: Flash pulmonary edema: Continue mechanical ventilation pending improvement in the patient's hemodynamics and potential SBT. Will check tracheal aspirate for potential pneumonia. Check urinary Legionella antigen given her markedly elevated white blood cell count although this could be due to a stress response. Fairly significant metabolic and respiratory acidosis on presentation 4. Renal: Aggressive diuresis. Electrolyte replacement. Follow serum creatinine. Metabolic and respiratory acidosis with an elevated lactate at 6.5. This will be trended. She was taking Metformin which could contribute to her lactic acidosis. 5. ID: She received cefepime in the emergency room. Continue antibiotics for now. We will follow up on blood cultures if not performed in the emergency room as well as respiratory cultures. Legionella urinary antigen 6. GI: N.p.o. for now. Initiate H2 vijay for prophylaxis 7. Endocrine: History of diabetes. Glycemic consult for glycemic control. May require insulin infusion depending on clinical response. 8. Heme-onc: Marked leukocytosis of unclear etiology. Differential appears to be consistent with a left shift. Initiate subcu heparin for DVT prophylaxis Patient's overall prognosis is guarded at this point time. A total of 50 minutes in critical care time was spent in evaluation management and coordination of care of this patient. History of Present Illness History of Present Illness Called by the ER to assist with critical care management this patient status post intubation mechanical ventilation. History is obtained from review electronic medical record as well as discussion with the ER staff. The patient is intubated and unable to provide any history. No family accompanies her. Patient is a 40-year-old chronically ill female with a complex medical history including bicuspid aortic valve with moderate , MR, diabetes, obesity, substance abuse, and previous suicide attempts who presented to the emergency room with respiratory distress and asking to be intubated. Chest x-ray demonstrated pulmonary edema. She failed noninvasive positive pressure ventilation was intubated. She was profoundly hypertensive and received Nitropaste. Blood gas showed metabolic acidosis with markedly elevated white blood cell count. Allergies Allergy/AdvReac Type Severity Reaction Status Date / Time lidocaine Allergy Intermediate HIVES Verified 08/09/20 22:47 procaine Allergy Intermediate HIVES Verified 08/09/20 22:47 Penicillins Allergy Mild HAD NO Verified 08/09/20 22:47 PROBLEM WITH ZOSYN strawberry Allergy Mild HIVES Verified 08/09/20 22:47 cephalexin AdvReac Intermediate YEAST Verified 08/09/20 22:47 INFECTIONS egg AdvReac Intermediate GI UPSET Verified 08/09/20 22:47 tramadol AdvReac Intermediate SEIZURES Verified 08/09/20 22:47 azithromycin AdvReac Mild STOMACH Verified 08/09/20 22:47 PAIN Home Medications Medication Instructions Recorded Confirmed Type escitalopram oxalate [Lexapro] 20 mg PO QAM 05/30/18 08/09/20 History levetiracetam [Keppra] 500 mg PO BID 05/30/18 08/09/20 History lisinopril 2.5 mg PO QAM 09/08/18 08/09/20 History metformin 1,000 mg PO BID 12/19/18 08/09/20 History atorvastatin 80 mg PO HS 12/28/18 08/09/20 History albuterol sulfate 2 puff INHALATION Q6 PRN 11/06/19 08/10/20 History buprenorphine-naloxone [Suboxone] 0.5 ea SUBLINGUAL TID 11/06/19 08/09/20 Histor y buspirone 15 mg PO BID 11/06/19 08/09/20 History medroxyprogesterone [Depo-Provera] 150 mg IM Q3M 11/06/19 08/09/20 History nitroglycerin [Nitrostat] 0.4 mg SUBLINGUAL UD PRN 11/06/19 08/09/20 History glipizide 10 mg PO DAILYBD 02/22/20 08/09/20 History aspirin 81 mg PO QAM 30 Days #30 tab 02/24/20 08/09/20 Rx clopidogrel 75 mg PO QAM 30 Days #30 tab 02/24/20 08/09/20 Rx Flovent HFA 2 puff INHALATION BID 05/23/20 08/09/20 History metoprolol succinate 25 mg PO DAILY 05/23/20 08/09/20 History ferrous sulfate 325 mg PO QDB #30 tab 05/25/20 08/09/20 Rx furosemide [Lasix] 20 mg PO DAILY 08/09/20 08/09/20 History gabapentin 400 mg PO TID 08/09/20 08/09/20 History meloxicam 15 mg PO DAILY 08/09/20 08/09/20 History potassium chloride [Klor-Con M20] 20 meq PO DAILY 08/09/20 08/09/20 History Patient History Medical History (Updated 09/18/20 @ 12:51 by Chava Armenta MD) Acute electrocardiogram changes Aortic regurgitation Aortic stenosis Asthma Atypical chest pain Cannabis abuse Chronic diastolic CHF (congestive heart failure) Coronary artery disease Depression Diabetes mellitus, type 2 Encounter for smoking cessation counseling GERD (gastroesophageal reflux disease) Hepatitis C "Antibiotic screen positive, quantitative RNA positive 08/30/17" Hepatosplenomegaly History of drug abuse History of DVT (deep vein thrombosis) History of renal calculi Hypertension Hypocalcemia Opiate abuse, continuous Overdose Seizure disorder Surgical History History of cardiac cath 2017- 1 ROJAS to ramus, 2 ROJAS to L circumflex. 40-50% plaque to LAD 2018- distal disease (80%) within PDA History of carpal tunnel surgery History of lumbar spinal fusion Hx of tonsillectomy S/P coronary artery stent placement Status post cholecystectomy Family History Other Diabetes Heart disease Hypertension Kidney stones Seizures Social History Smoking Status: Current every day smoker Tobacco Type: Cigarettes Cigarettes Per Day: 10; Number of Years Since Quit: 31; Second Hand Exposure: Yes; Hx Alcohol Use: No Hx Substance Use: No Preferred Language: Frisian Communication Ability: Effective Visual Impairment: No Limitations Hearing Ability: Normal 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 Cardiovascular: Rate/Rhythm: + tachycardic Heart Sounds: normal S1, normal S2 and + murmur Gastrointestinal (Abdomen): normal bowel sounds, soft, nontender, no hepatosplenomegaly Musculoskeletal: Extremities: extremities normal to inspection Skin: Multiple excoriations and lesions. Neurologic: Intubated and sedated Lymphatic: no cervical lymphadenopathy Results & Data Results & Data ([facility]) Vital Signs (Past 12 Hours) Vital Signs Pulse Pulse Resp BP Pulse Ox 09/18/20 12:21 146 H 21 93 09/18/20 11:49 145 H 46 H 182/95 H 09/18/20 11:20 146 H 146 H 44 H 93 Critical Care Results & Data Vital Signs (Past 12 Hours) Vital Signs Pulse Pulse Resp BP Pulse Ox 09/18/20 12:21 146 H 21 93 09/18/20 11:49 145 H 46 H 182/95 H 09/18/20 11:20 146 H 146 H 44 H 93 Lab & Micro Results (Past 24 Hours) RBC 4.33 M/uL (4.2-5.4) 09/18/20 WBC 48.95 K/uL (4.8-10.8) H* 09/18/20 Hgb 10.0 g/dL (12.0-16.0) L 09/18/20 Hct 33.1 % (37-47) L 09/18/20 MCV 76.4 fL (80-100) L 09/18/20 MCH 23.1 pg (25-34) L 09/18/20 MCHC 30.2 g/dL (32-36) L 09/18/20 RDW Standard Deviation 55.0 fL (36.4-46.3) H 09/18/20 RDW Coefficient of Variation 21.2 % (11.5-14.5) H 09/18/20 Plt Count 538 K/uL (130-400) H 09/18/20 MPV 10.2 fL (7.4-10.4) 09/18/20 Nucleated Red Blood Cells % (auto) 0.4 % 09/18/20 Nucleated RBC Absolute Count (auto) 0.17 K/uL (0-0) H 09/18/20 Neutrophils (%) (Auto) 82.9 % 09/18/20 Lymphocytes (%) (Auto) 10.6 % 09/18/20 Monocytes # (Auto) 2.56 K/uL (0.11-0.59) H 09/18/20 Eosinophils # (Auto) 0.05 K/uL (0-0.5) 09/18/20 Immature Granulocyte % (Auto) 1.0 % 09/18/20 Neutrophils # (Auto) 40.55 K/uL (1.4-6.5) H 09/18/20 Lymphocytes # (Auto) 5.18 K/uL (1.2-3.4) H 09/18/20 Monocytes # (Auto) 2.56 K/uL (0.11-0.59) H 09/18/20 Eosinophils # (Auto) 0.05 K/uL (0-0.5) 09/18/20 Basophils # (Auto) 0.10 K/uL (0-0.2) 09/18/20 Immature Granulocyte # (Auto) 0.51 K/uL (0.00-0.02) H 09/18/20 Poikilocytosis Present 09/18/20 Anisocytosis Present 09/18/20 Microcytosis Present 09/18/20 Na 140 mmol/L (136-145) 09/18/20 K 4.2 mmol/L (3.5-5.1) 09/18/20 Cl 108 mmol/L (98-107) H 09/18/20 CO2 19 mmol/L (21-32) L 09/18/20 Anion Gap 13.0 (3-11) H 09/18/20 BUN 10 mg/dl (7-18) 09/18/20 Creatinine 1.07 mg/dl (0.6-1.2) 09/18/20 Estimated GFR ( Amer) 74.2 ml/min 09/18/20 Estimated GFR (Non-Af Amer) 64.0 ml/min 09/18/20 BUN/Creatinine Ratio 9.4 (10-20) L 09/18/20 Glu 272 mg/dl (70-99) H 09/18/20 Ca 8.8 mg/dl (8.5-10.1) 09/18/20 Total Bilirubin 0.9 mg/dl (0.2-1) 09/18/20 AST 32 U/L (15-37) 09/18/20 ALT 19 U/L (12-78) 09/18/20 Alkaline Phosphatase 79 U/L (45-117) 09/18/20 TP 7.7 gm/dl (6.4-8.2) 09/18/20 Albumin 3.3 gm/dl (3.4-5.0) L 09/18/20 Globulin 4.4 gm/dl (2.5-4.0) H 09/18/20 Albumin/Globulin Ratio 0.7 (0.9-2) L 09/18/20 Mg 1.9 mg/dl (1.8-2.4) 09/18/20 11:34 09/18/20 Calcium Level 8.8 mg/dl (8.5-10.1) 09/18/20 11:34 09/18/20 Prothromb Time International Ratio 1.2 (0.9-1.1) H 09/18/20 11:34 09/18/20 Venous Blood pH 7.12 (7.36-7.41) L 09/18/20 11:34 09/18/20 Venous Blood Partial Pressure CO2 56 mmHg (38-50) H 09/18/20 11:34 09/18/20 Venous Blood Partial Pressure O2 51 mmHg 09/18/20 11:34 09/18/20 Venous Blood HCO3 18 mmol/L 09/18/20 11:34 09/18/20 Venous Blood Base Excess -11.1 mEq/L 09/18/20 11:34 09/18/20 Venous Blood Oxygen Saturation 73.0 % 09/18/20 11:34 09/18/20 Blood Gas Barometric Pressure 731.9 mm/Hg 09/18/20 12:15 09/18/20 Arterial Blood pH 7.13 (7.35-7.45) L* 09/18/20 12:15 09/18/20 Arterial Blood Partial Pressure CO2 60 mmHg (35-46) H 09/18/20 12:15 09/18/20 Arterial Blood Partial Pressure O2 71 mmHg (80-95) L 09/18/20 12:15 09/18/20 Arterial Blood HCO3 20 mmol/L (19-24) 09/18/20 12:15 09/18/20 Arterial Blood Base Excess -9.7 mEq/L (-9-1.8) L 09/18/20 12:15 09/18/20 Arterial Blood Oxygen Saturation 87.0 % (90-95) L 09/18/20 12:15 09/18/20 Blood Gas Oxygen Given 100% 09/18/20 12:15 09/18/20 Caesar Test Pos (Pos) 09/18/20 12:15 09/18/20 Blood Gas Barometric Pressure 731.9 mm/Hg 09/18/20 12:15 09/18/20 Diagnostic Findings (Past 24 Hours) Chest X-Ray 09/18/20 11:30 XR chest 1V portable HISTORY: Shortness of breath. COMPARISON: Chest 05/23/2020. FINDINGS: The cardiac silhouette remains enlarged. Near diffuse bilateral airspace opacities which have progressed in the interval. No pneumothorax. IMPRESSION: Significant progression of the near diffuse bilateral airspace opacities. ACT 112: Negative or not required by law. Electronically signed by: Arnol Kenney M.D. 09/18/2020 11:40 AM Chest X-Ray 09/18/20 11:54 XR chest 1V portable HISTORY: post intubation COMPARISON: Chest 09/18/2020. FINDINGS: The endotracheal tube terminates approximately 1.7 cm from the misti. Near diffuse bilateral airspace opacities have slightly improved. There appear to be small bilateral pleural effusions. No pneumothorax. IMPRESSION: 1. The endotracheal tube terminates 1.7 cm from the misti. 2. Near diffuse bilateral airspace opacities have slightly improved. 3. Suspect small bilateral pleural effusions. ACT 112: Negative or not required by law. Electronically signed by: Arnol Kenney M.D. 09/18/2020 12:13 PM RT Ventilator Mngmt (Last Documented) Ventilator Ordered Settings Ventilator Support Mode Assist Control 09/18/20 12:21 Respiratory Rate 21 09/18/20 12:21 Ventilator Tidal Volume 450 09/18/20 12:21 Setting Minute Ventilation 9.9 09/18/20 12:21 Positive End Expiratory 15 09/18/20 12:21 Pressure Fraction of Inspired Oxygen 100 09/18/20 12:21 Ventilator - PT Measurements Respiratory Rate 21 Exhaled Tidal Volume 440 Minute Ventilation 9.9 Peak Inspiratory Airway 42 Pressure Mean Airway Pressure 23 Respiratory Cycle Inspiratory: 1:2 Expiratory Ratio End-Tidal CO2 45 Dynamic Lung Compliance 16.30 Normal Static Lung Compliance 44.00 Coding Level of Care Code Critical Care 1st 30-74 mins Diagnoses Hypoxia R09.02 Acute CHF (congestive heart failure) I50.9 Acute on chronic heart failure with preserved ejection fraction (HFpEF) I50.33 Acute hypoxemic respiratory failure J96.01 Pulmonary edema cardiac cause I50.1 Lactic acidosis E87.2 Time Spent (min) 50
[2020-09-18] MEDS ORDERED: NORMOSOL-R 1,000 ML IV SCH (12:45)
--- NOTE | 2020-09-18 12:52 | History & Physical Report ---
Date of Service September 18, 2020 Assessment & Plan (1) Acute hypoxemic respiratory failure: (2) Acute on chronic heart failure with preserved ejection fraction (HFpEF): (3) Pulmonary edema cardiac cause: (4) Lactic acidosis: (5) Elevated troponin I level: Patient presented via EMS for increased SOB, and upon presentation to the ED was sedated and intubated. Admit to ICU for further management. Critcal care consulted. CXR showed probable flash pulmonary edema. Aggressive diuresis started in the ED. Possibly secondary to acute CHF. Cardiology consulted. Acute hypoxic and hypercapnic respiratory failure requiring intubation. Critical care team on board to manage and follow. Continue diuresis and monitor renal function closely. CXR appeared slightly improved on recheck- possibly from diuresis vs positive airway pressure Given IV abx in the ED. With markedly elevated WBC count and left shift, continue abx per critical care team. May be stress response. Monitor I&Os. [place] in place. COVID negative. We will continue to follow patient while admitted to ICU. Home meds were confirmed per outpatient records, but not confirmed by patient due to being intubated. (6) Anemia, iron deficiency: (7) Bicuspid aortic valve: (8) Coronary artery disease: (9) Hx of drug abuse: Tox screen negative. (10) Diabetes mellitus, type 2: Stop PO DM medications. Insulin while inpatient (11) Hypertension: (12) Asthma: (13) DVT prophylaxis: Per critical care team- Heparin History of Present Illness Chief Complaint: Acute respiratory failure, acute CHF Primary Care Provider: Irvin Iverson MD History was gathered strictly from ED provider and records as patient was intubated at the time of my exam. Patient is a 40 yo female with extensive PMHx including Type 2 DM, hyperlipidemia, DM neuropathy, asthma, HTN, heart failure with aortic valve stenosis, CAD, Vit D Def, Chronic Hep C, Opioid dependence, iron deficiency anemia, s/p coronary artery stent placement, polysubstance abuse, and depression who was brought to the hospital via ambulance this morning for complaints of worsening SOB. The patient had worsening SOB in route to the hospital and was given IV Solu-Medrol by EMS along with continuous nebulizer and CPAP. The patient was asking for intubation upon arrival. She was found to have worsening vitals upon presentation and continued to have difficulty breathing and hypoxia on BiPap. She was ultimately sedated and intubated in the ED. Lab evaluation revealed marked WBC count elevation of 48K with left shift. Noted to be mildly anemic with hgb 10. Prior Hgb last month was 9.9. ABG showed acidosis with elevated pCO2 of 60 and decreased pO2 of 71. Glucose was 272. Lactic acid initially 6.5. Down to 3.1 on recheck. LFTs within normal. Creatinine 1.07 with GFR 64%. Troponin elevated at 0.264. BNP 3400. COVID negative. Patient also had multiple IVs started in the ED, Propofol drip, [place] cath insertion with aggressive diuresis. Initial CXR showed almost complete opacification of the lungs. Repeat CXR after some diuresis showed mild improvement. Critcal care team was consulted and is involved. Allergies Allergy/AdvReac Type Severity Reaction Status Date / Time lidocaine Allergy Intermediate HIVES Verified 08/09/20 22:47 procaine Allergy Intermediate HIVES Verified 08/09/20 22:47 Penicillins Allergy Mild HAD NO Verified 08/09/20 22:47 PROBLEM WITH ZOSYN strawberry Allergy Mild HIVES Verified 08/09/20 22:47 cephalexin AdvReac Intermediate YEAST Verified 08/09/20 22:47 INFECTIONS egg AdvReac Intermediate GI UPSET Verified 08/09/20 22:47 tramadol AdvReac Intermediate SEIZURES Verified 08/09/20 22:47 azithromycin AdvReac Mild STOMACH Verified 08/09/20 22:47 PAIN Home Medications Medication Instructions Recorded Confirmed Type escitalopram oxalate [Lexapro] 20 mg PO QAM 05/30/18 09/18/20 History levetiracetam [Keppra] 500 mg PO BID 05/30/18 09/18/20 History lisinopril 2.5 mg PO QAM 09/08/18 09/18/20 History metformin 1,000 mg PO BID 12/19/18 09/18/20 History atorvastatin 80 mg PO HS 12/28/18 09/18/20 History albuterol sulfate 2 puff INHALATION Q6 PRN 11/06/19 09/18/20 History buspirone 15 mg PO BID 11/06/19 09/18/20 History medroxyprogesterone [Depo-Provera] 150 mg IM Q3M 11/06/19 09/18/20 History nitroglycerin [Nitrostat] 0.4 mg SUBLINGUAL UD PRN 11/06/19 09/18/20 History glipizide 10 mg PO DAILYBD 02/22/20 09/18/20 History aspirin 81 mg PO QAM 30 Days #30 tab 02/24/20 09/18/20 Rx clopidogrel 75 mg PO QAM 30 Days #30 tab 02/24/20 09/18/20 Rx metoprolol succinate 25 mg PO DAILY 05/23/20 09/18/20 History ferrous sulfate 325 mg PO QDB #30 tab 05/25/20 09/18/20 Rx gabapentin 400 mg PO TID 08/09/20 09/18/20 History potassium chloride [Klor-Con M20] 20 meq PO DAILY 08/09/20 09/18/20 History Asmanex Twisthaler 2 inh INHALATION DAILY 09/18/20 09/18/20 History Lantus Solostar U-100 Insulin 10 unit SUBCUT HS 09/18/20 09/18/20 History Victoza 3-Zac 1.2 mg SUBCUT DAILY 09/18/20 09/18/20 History buprenorphine-naloxone 1 tab SUBLINGUAL DAILY 09/18/20 09/18/20 History meclizine 25 mg PO TID PRN 09/18/20 09/18/20 History doxycycline hyclate 100 mg PO BID 21 Days #42 cap 09/23/20 Rx furosemide [Lasix] 40 mg PO BID #60 tab 09/23/20 Rx Past Med/Surg History Medical History Acute electrocardiogram changes Aortic regurgitation Aortic stenosis Asthma Atypical chest pain Cannabis abuse Chronic diastolic CHF (congestive heart failure) Coronary artery disease Depression Diabetes mellitus, type 2 Encounter for smoking cessation counseling GERD (gastroesophageal reflux disease) Hepatitis C "Antibiotic screen positive, quantitative RNA positive 08/30/17" Hepatosplenomegaly History of drug abuse History of DVT (deep vein thrombosis) History of renal calculi Hypertension Hypocalcemia Opiate abuse, continuous Overdose Seizure disorder Surgical History History of cardiac cath 2017- 1 ROJAS to ramus, 2 ROJAS to L circumflex. 40-50% plaque to LAD 2018- distal disease (80%) within PDA History of carpal tunnel surgery History of lumbar spinal fusion Hx of tonsillectomy S/P coronary artery stent placement Status post cholecystectomy Family History Other Diabetes Heart disease Hypertension Kidney stones Seizures Social History Smoking Status: Current every day smoker Tobacco Type: Cigarettes Cigarettes Per Day: 10; Number of Years Since Quit: 31; Second Hand Exposure: Yes; Hx Alcohol Use: No Hx Substance Use: No Preferred Language: Bengali Communication Ability: Unable Visual Impairment: No Limitations Hearing Ability: Normal Communications Intern Required: No Beliefs That Will Affect Care: None marital status: Single Current Living Situation: Significant Other Current Living Situation Comment: LIVES WITH ROOMMATES Feels Safe at Home: Yes Assistive Devices: Oxygen - Continuous Review of Systems Review of Systems: Unobtainable due to endotracheal tube Physical Exam Constitutional: + morbidly obese and + mechanically ventilated Neck: + thick neck; no tracheal deviation Respiratory: Auscultation: + diminished lung sounds, + crackles and + wheezes Mechanically ventilated. Cardiovascular: Rate/Rhythm: + tachycardic Heart Sounds: normal S1, normal S2 and + murmur Gastrointestinal (Abdomen): Inspection/Auscultation: abdomen normal to inspection and normal bowel sounds; abdomen not distended Percussion/Palpation: abdomen soft Musculoskeletal: Head/Neck/Chest: normocephalic and head atraumatic Skin: Multiple excoriations and scabs on the lower extremities and arms. Neurologic: Sedated Results & Data Results & Data ([facility]) Vital Signs (Past 12 Hours) Vital Signs Temp Pulse Pulse Resp BP Pulse Ox 09/18/20 12:47 36.3 C L 09/18/20 12:21 146 H 21 93 09/18/20 11:49 145 H 46 H 182/95 H 09/18/20 11:20 146 H 146 H 44 H 93 Laboratory Results Laboratory Results - last 24 hr 09/18/20 09/18/20 09/18/20 11:34 11:34 11:34 WBC RBC Hgb Hct MCV MCH MCHC RDW Std Deviation RDW Coeff of Hannah Plt Count MPV Immature Gran % (Auto) Neut % (Auto) Lymph % (Auto) Caroline % (Auto) Eos % (Auto) Baso % (Auto) Neut # (Auto) Lymph # (Auto) Caroline # (Auto) Eos # (Auto) Baso # (Auto) Immature Gran # (Auto) Absolute Nucleated RBC Nucleated RBC % (auto) Poikilocytosis Anisocytosis Microcytosis PT 12.0 INR 1.2 H APTT 25.9 PTT Ratio 1.0 ABG pH ABG pCO2 ABG pO2 ABG HCO3 ABG O2 Saturation ABG Base Excess Caesar Test VBG pH 7.12 L VBG pCO2 56 H VBG pO2 51 VBG HCO3 18 VBG O2 Saturation 73.0 VBG Base Excess -11.1 Barometric Pressure 732.0 Oxygen Given Sodium 140 Potassium 4.2 Chloride 108 H Carbon Dioxide 19 L Anion Gap 13.0 H BUN 10 Creatinine 1.07 Est Cr Clr Drug Dosing 74.3 Est GFR ( Amer) 74.2 Est GFR (Non-Af Amer) 64.0 BUN/Creatinine Ratio 9.4 L Glucose 272 H Lactate Calcium 8.8 Magnesium 1.9 Total Bilirubin 0.9 AST 32 ALT 19 Alkaline Phosphatase 79 Troponin I 0.264 H* NT-Pro-B Natriuret Pep 3498 H Total Protein 7.7 Albumin 3.3 L Globulin 4.4 H Albumin/Globulin Ratio 0.7 L HCG, Qual Urine Opiates Screen Ur Methadone, Qual Urine Barbiturates Ur Phencyclidine (PCP) U Amphetamin/Meth Scrn MDMA (Ecstasy) Screen U Benzodiazepines Scrn Ur Cocaine Metabolite U Marijuana (THC) Screen COVID-19 Eval Order SARS-CoV-2 (PCR) Urine Legionella Ag 09/18/20 09/18/20 09/18/20 11:35 11:35 11:36 WBC 48.95 H* RBC 4.33 Hgb 10.0 L Hct 33.1 L MCV 76.4 L MCH 23.1 L MCHC 30.2 L RDW Std Deviation 55.0 H RDW Coeff of Hannah 21.2 H Plt Count 538 H MPV 10.2 Immature Gran % (Auto) 1.0 Neut % (Auto) 82.9 Lymph % (Auto) 10.6 Caroline % (Auto) 5.2 Eos % (Auto) 0.1 Baso % (Auto) 0.2 Neut # (Auto) 40.55 H Lymph # (Auto) 5.18 H Caroline # (Auto) 2.56 H Eos # (Auto) 0.05 Baso # (Auto) 0.10 Immature Gran # (Auto) 0.51 H Absolute Nucleated RBC 0.17 H Nucleated RBC % (auto) 0.4 Poikilocytosis Present Anisocytosis Present Microcytosis Present PT INR APTT PTT Ratio ABG pH ABG pCO2 ABG pO2 ABG HCO3 ABG O2 Saturation ABG Base Excess Caesar Test VBG pH VBG pCO2 VBG pO2 VBG HCO3 VBG O2 Saturation VBG Base Excess Barometric Pressure Oxygen Given Sodium Potassium Chloride Carbon Dioxide Anion Gap BUN Creatinine Est Cr Clr Drug Dosing Est GFR ( Amer) Est GFR (Non-Af Amer) BUN/Creatinine Ratio Glucose Lactate 6.5 H* Calcium Magnesium Total Bilirubin AST ALT Alkaline Phosphatase Troponin I NT-Pro-B Natriuret Pep Total Protein Albumin Globulin Albumin/Globulin Ratio HCG, Qual Negative Urine Opiates Screen Ur Methadone, Qual Urine Barbiturates Ur Phencyclidine (PCP) U Amphetamin/Meth Scrn MDMA (Ecstasy) Screen U Benzodiazepines Scrn Ur Cocaine Metabolite U Marijuana (THC) Screen COVID-19 Eval Order SARS-CoV-2 (PCR) Urine Legionella Ag 09/18/20 09/18/20 09/18/20 11:50 11:50 12:00 WBC RBC Hgb Hct MCV MCH MCHC RDW Std Deviation RDW Coeff of Hannah Plt Count MPV Immature Gran % (Auto) Neut % (Auto) Lymph % (Auto) Caroline % (Auto) Eos % (Auto) Baso % (Auto) Neut # (Auto) Lymph # (Auto) Caroline # (Auto) Eos # (Auto) Baso # (Auto) Immature Gran # (Auto) Absolute Nucleated RBC Nucleated RBC % (auto) Poikilocytosis Anisocytosis Microcytosis PT INR APTT PTT Ratio ABG pH ABG pCO2 ABG pO2 ABG HCO3 ABG O2 Saturation ABG Base Excess Caesar Test VBG pH VBG pCO2 VBG pO2 VBG HCO3 VBG O2 Saturation VBG Base Excess Barometric Pressure Oxygen Given Sodium Potassium Chloride Carbon Dioxide Anion Gap BUN Creatinine Est Cr Clr Drug Dosing Est GFR ( Amer) Est GFR (Non-Af Amer) BUN/Creatinine Ratio Glucose Lactate Calcium Magnesium Total Bilirubin AST ALT Alkaline Phosphatase Troponin I NT-Pro-B Natriuret Pep Total Protein Albumin Globulin Albumin/Globulin Ratio HCG, Qual Urine Opiates Screen Neg Ur Methadone, Qual Neg Urine Barbiturates Neg Ur Phencyclidine (PCP) Neg U Amphetamin/Meth Scrn Neg MDMA (Ecstasy) Screen Neg U Benzodiazepines Scrn Neg Ur Cocaine Metabolite Neg U Marijuana (THC) Screen Neg COVID-19 Eval Order Covid19 at [facility] SARS-CoV-2 (PCR) NEGATIVE Urine Legionella Ag 09/18/20 09/18/20 09/18/20 12:00 12:15 13:57 WBC RBC Hgb Hct MCV MCH MCHC RDW Std Deviation RDW Coeff of Hannah Plt Count MPV Immature Gran % (Auto) Neut % (Auto) Lymph % (Auto) Caroline % (Auto) Eos % (Auto) Baso % (Auto) Neut # (Auto) Lymph # (Auto) Caroline # (Auto) Eos # (Auto) Baso # (Auto) Immature Gran # (Auto) Absolute Nucleated RBC Nucleated RBC % (auto) Poikilocytosis Anisocytosis Microcytosis PT INR APTT PTT Ratio ABG pH 7.13 L* ABG pCO2 60 H ABG pO2 71 L ABG HCO3 20 ABG O2 Saturation 87.0 L ABG Base Excess -9.7 L Caesar Test Pos VBG pH VBG pCO2 VBG pO2 VBG HCO3 VBG O2 Saturation VBG Base Excess Barometric Pressure 731.9 Oxygen Given 100% Sodium Potassium Chloride Carbon Dioxide Anion Gap BUN Creatinine Est Cr Clr Drug Dosing Est GFR ( Amer) Est GFR (Non-Af Amer) BUN/Creatinine Ratio Glucose Lactate 3.1 H* Calcium Magnesium Total Bilirubin AST ALT Alkaline Phosphatase Troponin I NT-Pro-B Natriuret Pep Total Protein Albumin Globulin Albumin/Globulin Ratio HCG, Qual Urine Opiates Screen Ur Methadone, Qual Urine Barbiturates Ur Phencyclidine (PCP) U Amphetamin/Meth Scrn MDMA (Ecstasy) Screen U Benzodiazepines Scrn Ur Cocaine Metabolite U Marijuana (THC) Screen COVID-19 Eval Order SARS-CoV-2 (PCR) Urine Legionella Ag Pending Diagnostic Findings Initial CXR: IMPRESSION: Significant progression of the near diffuse bilateral airspace opacities. Repeat CXR: IMPRESSION: 1. The endotracheal tube terminates 1.7 cm from the misti. 2. Near diffuse bilateral airspace opacities have slightly improved. 3. Suspect small bilateral pleural effusions. Code Status & VTE Plan VTE Prophylaxis Plan VTE Prophylaxis will be ordered: Yes Supervising Physician Co-Signing Physician Notes Pt was seen and examined. Agreed with Anali LAM exam assessment and plan. History was gathered strictly from ED provider and records as patient was intubated. I called the , unfortunately no one answered. left voicemail to call back. 40 yo female with extensive PMHx including Type 2 DM, hyperlipi demia, DM neuropathy, asthma, HTN, heart failure with aortic valve stenosis, CAD, Vit D Def, Chronic Hep C, Opioid dependence, iron deficiency anemia, s/p coronary artery stent placement, polysubstance abuse, and depression who was brought to the hospital for worsening SOB. She was placed on Cpap during the transport, but when she arrived in the ER her breathing worsening and was intubated. Currently sedated and intubated on mechanical ventilation. CXR on admission showed significant progression of the near diffuse bilateral airspace opacities. Lab showe WBC 48k. ABG with pH 7.13/ pCO2 60/ pO2 71, lactic acid 6.5, troponin 0.264 and BNP 3400. Covid 19 negative. IV abx given in the ER. Will give IV Lasix. Recreation Specialist consulted. Will get an echo. Continue IV abx and propofol drip. Will monitor closely in the ICU. MD Sarai (1) Diabetes mellitus, type 2 Diabetes mellitus complication status: with unspecified complications Diabetes mellitus director long term care insulin use: without [place] [facility] use Qualified Code(s): E11.8 - Type 2 diabetes mellitus with unspecified complications
--- NOTE | 2020-09-18 12:57 | Emergency Department Note ---
Impression & Plan Acute respiratory distress, CHF (congestive heart failure), Tachycardia, Leukocytosis, Elevated lactic acid level ED Provider Note NAME: ROGER WEEKS AGE: 40 SEX: F : 1980 ARRIVES VIA: Ambulance INFORMANT: [ems, patient] ED PROVIDER(S): [Ja Bronson MD] CHIEF COMPLAINT: Respiratory distress HISTORY OF PRESENT ILLNESS: The patient is a 40-year-old female with a history of heart failure and aortic stenosis. As per the EMS crew, the patient began feeling short of breath yesterday especially in the evening. This morning, she was quite short of breath and things worsened as the day went on. The patient has received 125 mg of IV Solu-Medrol in route. She has been on a continuous albuterol nebulizer. She has been on CPAP. Despite these measures, she is tachycardic, struggling to breathe, sweaty and hypoxic. Patient arrives in distress. She is asking for intubation. She has been intubated before and she feels that she is at that level. Given the circumstances and her respiratory distress, no further history obtainable. REVIEW OF SYSTEMS: Unobtainable given the respiratory distress. PMHx/PSHx: See Below SOCIAL HISTORY: See Below. PHYSICAL EXAM: GENERAL: Patient is in significant respiratory distress. HEENT: No acute trauma, normocephalic atraumatic, mucous membranes moist, no nasal congestion, no scleral icterus. BiPAP mask in place. NECK: No stridor, no adenopathy, no meningismus, trachea is midline. LUNGS: Accessory muscle use, increased respiratory rate, significant respiratory distress noted. There are crackles bilaterally. HEART: 3/6 systolic murmur, tachycardic with a regular rhythm. ABDOMEN: Soft, nontender, bowel sounds positive, no hernias, no peritonitis. There is some abdominal distention. EXTREMITIES: No cyanosis, mild bilateral pedal edema, full range of motion of all the joints without pain or difficulty, no signs for acute trauma. NEUROLOGIC: Seems somnolent, no acute motor or sensory deficits, no focal weakness. SKIN: No rash, no jaundice, mild diaphoresis. DIFFERENTIAL DIAGNOSIS: Reactive airway disease, pneumonia, pneumothorax, COPD, CHF, infection, sepsis, cardiac ischemia, COVID-19, pulmonary embolism, bronchitis, musculoskeletal, gastrointestinal, as well as other pathologies. EMERGENCY DEPARTMENT COURSE/PROCEDURES: ECG: Indication was respiratory distress. The ECG shows what appears to be a sinus tachycardia. The rate is 134. There is some nonspecific ST change diffusely. There is no ST elevation, no PVCs. The QTc is 439. Continuous Cardiac Monitoring: An order was placed for continuous cardiac monitoring. The monitor shows a rate of 131 with sinus tachycardia. Critical Care Note: I have personally spent 63 minutes of critical care time in the direct management of this patient. This includes bedside care, interpretation of diagnostic studies, and testing, discussion with consultants, patient, and family members, and other required patient management activities. This 63 minutes is in excess of all separately billable procedures. Endotracheal intubation: This procedure was performed by me. Patient received 28 mg of etomidate IV, 70 mg of rocuronium IV. The patient was hyper oxygenated. Using rapid technique, the patient was intubated with a Lopez two blade. Some suction was required. No complication. The endotracheal tube was placed at 25 centimeters at the the lips. Good CO2 color change. Breath sounds equal bilaterally. Post intubation chest x-ray demonstrated the tube to be in good position. A propofol drip was ordered to help with sedation. MEDICAL DECISION MAKING: There is a marked leukocytosis at 48,000, this could be consistent with infection or the stress of her situation. The patient was anemic with a hemoglobin of 10. She has a history of anemia. There was an elevation to the platelet count at over 500. No coagulopathy. ABG demonstrated an acidosis with a pH of 7.13. The CO2 was high at 60, the O2 was low at 71. Renal panel testing did not show any evidence for significant electrolyte abnormality in need of emergent correction. Lactic acid level was quite high at over 6. Chest x-ray appears to show heart failure. No pneumothorax. BNP was elevated consistent with fluid overload. There was no liver enzyme elevation. testing was negative. ECG shows what appears to be a sinus tachycardia with significant artifact. Cardiac enzyme testing x1 is elevated consistent with cardiac injury or strain. Urine tox was negative. Covid testing was negative. The patient was in respiratory distress. She was placed on BiPAP with a continuous DuoNeb. She was ordered for 3 inches of nitroglycerin paste and 60 mg of IV Lasix. The patient really made no improvement on the BiPAP. She was struggling to breathe and I intubation was necessary. She did consent to intubation. This procedure was performed as mentioned above without complication. She was placed on the ventilator. She was placed on a propofol drip for sedation. She had an OG tube and [place] catheter placed. The patient was given IV cefepime as empiric antibiotic coverage. The patient has made some improvement since intubation. She has diuresed. Her heart rate has decreased, her blood pressure has improved. Her O2 saturation is now in the 90s. There were some adjustments made to her ventilator settings based on the ABG. These adjustments were made by the ICU team. The patient is being hospitalized. I did speak with case management, the on-c all hospitalist and the ICU attending have been consulted. Her respiratory distress may be multifactorial but certainly there is a component of heart failure. Further work-up and testing is required. Past Med/Surg History Medical History Acute electrocardiogram changes Aortic regurgitation Aortic stenosis Asthma Atypical chest pain Cannabis abuse Chronic diastolic CHF (congestive heart failure) Coronary artery disease Depression Diabetes mellitus, type 2 Encounter for smoking cessation counseling GERD (gastroesophageal reflux disease) Hepatitis C "Antibiotic screen positive, quantitative RNA positive 08/30/17" Hepatosplenomegaly History of drug abuse History of DVT (deep vein thrombosis) History of renal calculi Hypertension Hypocalcemia Opiate abuse, continuous Overdose Seizure disorder Surgical History History of cardiac cath 2017- 1 ROJAS to ramus, 2 ROJAS to L circumflex. 40-50% plaque to LAD 2018- distal disease (80%) within PDA History of carpal tunnel surgery History of lumbar spinal fusion Hx of tonsillectomy S/P coronary artery stent placement Status post cholecystectomy Family History Other Diabetes Heart disease Hypertension Kidney stones Seizures Social History Smoking Status: Current every day smoker Tobacco Type: Cigarettes Cigarettes Per Day: 10; Number of Years Since Quit: 31; Second Hand Exposure: Yes; Do You Dip or Chew Tobacco: No; Tobacco Cessation Education Requested by Patient: No Hx Alcohol Use: No Hx Substance Use: No Preferred Language: Indonesian Communication Ability: Effective Visual Impairment: No Limitations Hearing Ability: Normal Insurance Adjustor Required: No Beliefs That Will Affect Care: None marital status: Single Current Living Situation: Significant Other Current Living Situation Comment: LIVES WITH ROOMMATES Other Information That Helps Us Care for You: No Feels Safe at Home: Yes Safety Concerns: Feels Safe At This Time Assistive Devices: None Allergies Allergies Allergy/AdvReac Type Severity Reaction Status Date / Time lidocaine Allergy Intermediate HIVES Verified 08/09/20 22:47 procaine Allergy Intermediate HIVES Verified 08/09/20 22:47 Penicillins Allergy Mild HAD NO Verified 08/09/20 22:47 PROBLEM WITH ZOSYN strawberry Allergy Mild HIVES Verified 08/09/20 22:47 cephalexin AdvReac Intermediate YEAST Verified 08/09/20 22:47 INFECTIONS egg AdvReac Intermediate GI UPSET Verified 08/09/20 22:47 tramadol AdvReac Intermediate SEIZURES Verified 08/09/20 22:47 azithromycin AdvReac Mild STOMACH Verified 08/09/20 22:47 PAIN Home Meds Home Medications Medication Instructions Recorded Confirmed escitalopram oxalate [Lexapro] 20 mg PO QAM 05/30/18 09/18/20 levetiracetam [Keppra] 500 mg PO BID 05/30/18 09/18/20 lisinopril 2.5 mg PO QAM 09/08/18 09/18/20 metformin 1,000 mg PO BID 12/19/18 09/18/20 atorvastatin 80 mg PO HS 12/28/18 09/18/20 albuterol sulfate 2 puff INHALATION Q6 PRN 11/06/19 09/18/20 buspirone 15 mg PO BID 11/06/19 09/18/20 medroxyprogesterone [Depo-Provera] 150 mg IM Q3M 11/06/19 09/18/20 nitroglycerin [Nitrostat] 0.4 mg SUBLINGUAL UD PRN 11/06/19 09/18/20 glipizide 10 mg PO DAILYBD 02/22/20 09/18/20 metoprolol succinate 25 mg PO DAILY 05/23/20 09/18/20 furosemide [Lasix] 20 mg PO DAILY 08/09/20 09/18/20 gabapentin 400 mg PO TID 08/09/20 09/18/20 meloxicam 15 mg PO DAILY 08/09/20 09/18/20 potassium chloride [Klor-Con M20] 20 meq PO DAILY 08/09/20 09/18/20 Asmanex Twisthaler 2 inh INHALATION DAILY 09/18/20 09/18/20 buprenorphine-naloxone 1 tab SUBLINGUAL DAILY 09/18/20 09/18/20 insulin glargine [Lantus Solostar 10 unit SUBCUT HS 09/18/20 09/18/20 U-100 Insulin] liraglutide [Victoza 3-Zac] 1.2 mg SUBCUT DAILY 09/18/20 09/18/20 meclizine 25 mg PO TID PRN 09/18/20 09/18/20 Previous Rx's Medication Instructions Recorded aspirin 81 mg PO QAM 30 Days #30 tab 02/24/20 clopidogrel 75 mg PO QAM 30 Days #30 tab 02/24/20 ferrous sulfate 325 mg PO QDB #30 tab 05/25/20 Results & Data (ED) Vital Signs Vital Signs - 24 hr 09/18/20 11:20 09/18/20 11:25 09/18/20 11:29 Pulse Rate 146 H 143 H 143 H Pulse Rate [Apical] 146 H Pulse Rate from SpO2 Sensor 142 H 144 H Respiratory Rate 44 H Respiratory Effort / Characteristics Spontaneous Short of Breath Respiratory Depth Shallow Respiratory Pattern Tachypnea Blood Pressure 182/95 H Blood Pressure Mean 124 Blood Pressure Position Pulse Oximetry 93 91 91 Oxygen Delivery Method BiPAP CPAP CPAP Fraction of Inspired Oxygen 100 Sepsis Recent Fever Within 48 Hours Sepsis New/Unexplained Change in Mental Status Sepsis Action Taken by Nursing End-Tidal CO2 09/18/20 11:30 09/18/20 11:36 09/18/20 11:40 Pulse Rate 144 H 143 H 143 H Pulse Rate [Apical] Pulse Rate from SpO2 Sensor 143 H 143 H 143 H Respiratory Rate Respiratory Effort / Characteristics Respiratory Depth Respiratory Pattern Blood Pressure 145/100 H Blood Pressure Mean 115 Blood Pressure Position Pulse Oximetry 90 90 87 L Oxygen Delivery Method CPAP CPAP CPAP Fraction of Inspired Oxygen Sepsis Recent Fever Within 48 Hours Sepsis New/Unexplained Change in Mental Status Sepsis Action Taken by Nursing End-Tidal CO2 09/18/20 11:41 09/18/20 11:45 09/18/20 11:49 Pulse Rate 145 H 137 H 145 H Pulse Rate [Apical] Pulse Rate from SpO2 Sensor 146 H 137 H Respiratory Rate 46 H Respiratory Effort / Characteristics Accessory Muscle Use Grunting Labored Respiratory Depth Deep Respiratory Pattern Grunting Rapid/Deep Blood Pressure 159/95 H 169/125 H 182/95 H Blood Pressure Mean 116 139 124 Blood Pressure Position Sitting Pulse Oximetry 92 62 L Oxygen Delivery Method CPAP Fraction of Inspired Oxygen Sepsis Recent Fever Within 48 Hours No Sepsis New/Unexplained Change in Mental Status No Sepsis Action Taken by Nursing MD Previously Notified End-Tidal CO2 09/18/20 11:50 09/18/20 11:55 09/18/20 12:00 Pulse Rate 141 H 140 H 140 H Pulse Rate [Apical] Pulse Rate from SpO2 Sensor 141 H 140 H 139 H Respiratory Rate Respiratory Effort / Characteristics Respiratory Depth Respiratory Pattern Blood Pressure 182/110 H 167/99 H 167/97 H Blood Pressure Mean 134 121 120 Blood Pressure Position Pulse Oximetry 86 L 97 98 Oxygen Delivery Method Mechanical Vent Mechanical Vent Mechanical Vent Fraction of Inspired Oxygen 100 100 100 Sepsis Recent Fever Within 48 Hours Sepsis New/Unexplained Change in Mental Status Sepsis Action Taken by Nursing End-Tidal CO2 46 41 48 09/18/20 12:10 09/18/20 12:20 09/18/20 12:21 Pulse Rate 134 H 132 H 146 H Pulse Rate [Apical] Pulse Rate from SpO2 Sensor 134 H 135 H Respiratory Rate 21 Respiratory Effort / Characteristics Respiratory Depth Respiratory Pattern Blood Pressure Blood Pressure Mean Blood Pressure Position Pulse Oximetry 96 98 93 Oxygen Delivery Method Mechanical Vent Mechanical Vent Fraction of Inspired Oxygen 100 100 100 Sepsis Recent Fever Within 48 Hours Sepsis New/Unexplained Change in Mental Status Sepsis Action Taken by Nursing End-Tidal CO2 48 50 45 09/18/20 12:26 09/18/20 12:30 09/18/20 12:35 Pulse Rate 144 H 129 H 132 H Pulse Rate [Apical] Pulse Rate from SpO2 Sensor 143 H 128 H 132 H Respiratory Rate Respiratory Effort / Characteristics Respiratory Depth Respiratory Pattern Blood Pressure 136/103 H 138/85 128/85 Blood Pressure Mean 114 102 99 Blood Pressure Position Pulse Oximetry 98 99 95 Oxygen Delivery Method Mechanical Vent Mechanical Vent Mechanical Vent Fraction of Inspired Oxygen 100 100 100 Sepsis Recent Fever Within 48 Hours Sepsis New/Unexplained Change in Mental Status Sepsis Action Taken by Nursing End-Tidal CO2 52 50 49 09/18/20 12:40 09/18/20 12:41 Pulse Rate 136 H 146 H Pulse Rate [Apical] Pulse Rate from SpO2 Sensor 137 H 146 H Respiratory Rate Respiratory Effort / Characteristics Respiratory Depth Respiratory Pattern Blood Pressure 128/67 Blood Pressure Mean 87 Blood Pressure Position Pulse Oximetry 92 82 L Oxygen Delivery Method Mechanical Vent Mechanical Vent Fraction of Inspired Oxygen 80 80 Sepsis Recent Fever Within 48 Hours Sepsis New/Unexplained Change in Mental Status Sepsis Action Taken by Nursing End-Tidal CO2 47 45 Home Medications Current Medication List: was personally reviewed by me Laboratory Data Attestation: I reviewed the patient's lab results. Result diagrams: 09/18/20 11:35 09/18/20 11:34 Lab Results 09/18/20 09/18/20 09/18/20 Range/Units 11:34 11:34 11:34 WBC (4.8-10.8) K/uL RBC (4.2-5.4) M/uL Hgb (12.0-16.0) g/dL Hct (37-47) % MCV (80-100) fL MCH (25-34) pg MCHC (32-36) g/dL RDW Std Deviation (36.4-46.3) fL RDW Coeff of Hannah (11.5-14.5) % Plt Count (130-400) K/uL MPV (7.4-10.4) fL Immature Gran % (Auto) % Neut % (Auto) % Lymph % (Auto) % [place] % (Auto) % Eos % (Auto) % Baso % (Auto) % Neut # (Auto) (1.4-6.5) K/uL Lymph # (Auto) (1.2-3.4) K/uL [place] # (Auto) (0.11-0.59) K/uL Eos # (Auto) (0-0.5) K/uL Baso # (Auto) (0-0.2) K/uL Immature Gran # (Auto) (0.00-0.02) K/uL Absolute Nucleated RBC (0-0) K/uL Nucleated RBC % (auto) % Poikilocytosis Anisocytosis Microcytosis PT 12.0 (9.0-12.0) Seconds INR 1.2 H (0.9-1.1) APTT 25.9 (21.0-31.0) Seconds PTT Ratio 1.0 ABG pH (7.35-7.45) ABG pCO2 (35-46) mmHg ABG pO2 (80-95) mmHg ABG HCO3 (19-24) mmol/L ABG O2 Saturation (90-95) % ABG Base Excess (-9-1.8) mEq/L Caesar Test (Pos) VBG pH 7.12 L (7.36-7.41) VBG pCO2 56 H (38-50) mmHg VBG pO2 51 mmHg VBG HCO3 18 mmol/L VBG O2 Saturation 73.0 % VBG Base Excess -11.1 mEq/L Barometric Pressure 732.0 mm/Hg Oxygen Given Sodium 140 (136-145) mmol/L Potassium 4.2 (3.5-5.1) mmol/L Chloride 108 H (98-107) mmol/L Carbon Dioxide 19 L (21-32) mmol/L Anion Gap 13.0 H (3-11) BUN 10 (7-18) mg/dl Creatinine 1.07 (0.6-1.2) mg/dl Est Cr Clr Drug Dosing 74.3 ml/min Est GFR ( Amer) 74.2 ml/min Est GFR (Non-Af Amer) 64.0 ml/min BUN/Creatinine Ratio 9.4 L (10-20) Glucose 272 H (70-99) mg/dl Lactate (0.4-2.0) mmol/L Calcium 8.8 (8.5-10.1) mg/dl Magnesium 1.9 (1.8-2.4) mg/dl Total Bilirubin 0.9 (0.2-1) mg/dl AST 32 (15-37) U/L ALT 19 (12-78) U/L Alkaline Phosphatase 79 (45-117) U/L Troponin I 0.264 H* (0-0.045) ng/ml NT-Pro-B Natriuret Pep 3498 H (0-450) pg/ml Total Protein 7.7 (6.4-8.2) gm/dl Albumin 3.3 L (3.4-5.0) gm/dl Globulin 4.4 H (2.5-4.0) gm/dl Albumin/Globulin Ratio 0.7 L (0.9-2) HCG, Qual (Negative) Urine Opiates Screen (Neg) Ur Methadone, Qual (Neg) Urine Barbiturates (Neg) Ur Phencyclidine (PCP) (Neg) U Amphetamin/Meth Scrn (Neg) MDMA (Ecstasy) Screen (Neg) U Benzodiazepines Scrn (Neg) Ur Cocaine Metabolite (Neg) U Marijuana (THC) Screen (Neg) COVID-19 Eval Order SARS-CoV-2 (PCR) (Negative) 09/18/20 09/18/20 09/18/20 Range/Units 11:35 11:35 11:36 WBC 48.95 H* (4.8-10.8) K/uL RBC 4.33 (4.2-5.4) M/uL Hgb 10.0 L (12.0-16.0) g/dL Hct 33.1 L (37-47) % MCV 76.4 L (80-100) fL MCH 23.1 L (25-34) pg MCHC 30.2 L (32-36) g/dL RDW Std Deviation 55.0 H (36.4-46.3) fL RDW Coeff of Hannah 21.2 H (11.5-14.5) % Plt Count 538 H (130-400) K/uL MPV 10.2 (7.4-10.4) fL Immature Gran % (Auto) 1.0 % Neut % (Auto) 82.9 % Lymph % (Auto) 10.6 % [place] % (Auto) 5.2 % Eos % (Auto) 0.1 % Baso % (Auto) 0.2 % Neut # (Auto) 40.55 H (1.4-6.5) K/uL Lymph # (Auto) 5.18 H (1.2-3.4) K/uL [place] # (Auto) 2.56 H (0.11-0.59) K/uL Eos # (Auto) 0.05 (0-0.5) K/uL Baso # (Auto) 0.10 (0-0.2) K/uL Immature Gran # (Auto) 0.51 H (0.00-0.02) K/uL Absolute Nucleated RBC 0.17 H (0-0) K/uL Nucleated RBC % (auto) 0.4 % Poikilocytosis Present Anisocytosis Present Microcytosis Present PT (9.0-12.0) Seconds INR (0.9-1.1) APTT (21.0-31.0) Seconds PTT Ratio ABG pH (7.35-7.45) ABG pCO2 (35-46) mmHg ABG pO2 (80-95) mmHg ABG HCO3 (19-24) mmol/L ABG O2 Saturation (90-95) % ABG Base Excess (-9-1.8) mEq/L Caesar Test (Pos) VBG pH (7.36-7.41) VBG pCO2 (38-50) mmHg VBG pO2 mmHg VBG HCO3 mmol/L VBG O2 Saturation % VBG Base Excess mEq/L Barometric Pressure mm/Hg Oxygen Given Sodium (136-145) mmol/L Potassium (3.5-5.1) mmol/L Chloride (98-107) mmol/L Carbon Dioxide (21-32) mmol/L Anion Gap (3-11) BUN (7-18) mg/dl Creatinine (0.6-1.2) mg/dl Est Cr Clr Drug Dosing ml/min Est GFR ( Amer) ml/min Est GFR (Non-Af Amer) ml/min BUN/Creatinine Ratio (10-20) Glucose (70-99) mg/dl Lactate 6.5 H* (0.4-2.0) mmol/L Calcium (8.5-10.1) mg/dl Magnesium (1.8-2.4) mg/dl Total Bilirubin (0.2-1) mg/dl AST (15-37) U/L ALT (12-78) U/L Alkaline Phosphatase (45-117) U/L Troponin I (0-0.045) ng/ml NT-Pro-B Natriuret Pep (0-450) pg/ml Total Protein (6.4-8.2) gm/dl Albumin (3.4-5.0) gm/dl Globulin (2.5-4.0) gm/dl Albumin/Globulin Ratio (0.9-2) HCG, Qual Negative (Negative) Urine Opiates Screen (Neg) Ur Methadone, Qual (Neg) Urine Barbiturates (Neg) Ur Phencyclidine (PCP) (Neg) U Amphetamin/Meth Scrn (Neg) MDMA (Ecstasy) Screen (Neg) U Benzodiazepines Scrn (Neg) Ur Cocaine Metabolite (Neg) U Marijuana (THC) Screen (Neg) COVID-19 Eval Order SARS-CoV-2 (PCR) (Negative) 09/18/20 09/18/20 09/18/20 Range/Units 11:50 11:50 12:00 WBC (4.8-10.8) K/uL RBC (4.2-5.4) M/uL Hgb (12.0-16.0) g/dL Hct (37-47) % MCV (80-100) fL MCH (25-34) pg MCHC (32-36) g/dL RDW Std Deviation (36.4-46.3) fL RDW Coeff of Hannah (11.5-14.5) % Plt Count (130-400) K/uL MPV (7.4-10.4) fL Immature Gran % (Auto) % Neut % (Auto) % Lymph % (Auto) % [place] % (Auto) % Eos % (Auto) % Baso % (Auto) % Neut # (Auto) (1.4-6.5) K/uL Lymph # (Auto) (1.2-3.4) K/uL [place] # (Auto) (0.11-0.59) K/uL Eos # (Auto) (0-0.5) K/uL Baso # (Auto) (0-0.2) K/uL Immature Gran # (Auto) (0.00-0.02) K/uL Absolute Nucleated RBC (0-0) K/uL Nucleated RBC % (auto) % Poikilocytosis Anisocytosis Microcytosis PT (9.0-12.0) Seconds INR (0.9-1.1) APTT (21.0-31.0) Seconds PTT Ratio ABG pH (7.35-7.45) ABG pCO2 (35-46) mmHg ABG pO2 (80-95) mmHg ABG HCO3 (19-24) mmol/L ABG O2 Saturation (90-95) % ABG Base Excess (-9-1.8) mEq/L Caesar Test (Pos) VBG pH (7.36-7.41) VBG pCO2 (38-50) mmHg VBG pO2 mmHg VBG HCO3 mmol/L VBG O2 Saturation % VBG Base Excess mEq/L Barometric Pressure mm/Hg Oxygen Given Sodium (136-145) mmol/L Potassium (3.5-5.1) mmol/L Chloride (98-107) mmol/L Carbon Dioxide (21-32) mmol/L Anion Gap (3-11) BUN (7-18) mg/dl Creatinine (0.6-1.2) mg/dl Est Cr Clr Drug Dosing ml/min Est GFR ( Amer) ml/min Est GFR (Non-Af Amer) ml/min BUN/Creatinine Ratio (10-20) Glucose (70-99) mg/dl Lactate (0.4-2.0) mmol/L Calcium (8.5-10.1) mg/dl Magnesium (1.8-2.4) mg/dl Total Bilirubin (0.2-1) mg/dl AST (15-37) U/L ALT (12-78) U/L Alkaline Phosphatase (45-117) U/L Troponin I (0-0.045) ng/ml NT-Pro-B Natriuret Pep (0-450) pg/ml Total Protein (6.4-8.2) gm/dl Albumin (3.4-5.0) gm/dl Globulin (2.5-4.0) gm/dl Albumin/Globulin Ratio (0.9-2) HCG, Qual (Negative) Urine Opiates Screen Neg (Neg) Ur Methadone, Qual Neg (Neg) Urine Barbiturates Neg (Neg) Ur Phencyclidine (PCP) Neg (Neg) U Amphetamin/Meth Scrn Neg (Neg) MDMA (Ecstasy) Screen Neg (Neg) U Benzodiazepines Scrn Neg (Neg) Ur Cocaine Metabolite Neg (Neg) U Marijuana (THC) Screen Neg (Neg) COVID-19 Eval Order Covid19 at [facility] SARS-CoV-2 (PCR) NEGATIVE (Negative) 09/18/20 Range/Units 12:15 WBC (4.8-10.8) K/uL RBC (4.2-5.4) M/uL Hgb (12.0-16.0) g/dL Hct (37-47) % MCV (80-100) fL MCH (25-34) pg MCHC (32-36) g/dL RDW Std Deviation (36.4-46.3) fL RDW Coeff of Hannah (11.5-14.5) % Plt Count (130-400) K/uL MPV (7.4-10.4) fL Immature Gran % (Auto) % Neut % (Auto) % Lymph % (Auto) % [place] % (Auto) % Eos % (Auto) % Baso % (Auto) % Neut # (Auto) (1.4-6.5) K/uL Lymph # (Auto) (1.2-3.4) K/uL [place] # (Auto) (0.11-0.59) K/uL Eos # (Auto) (0-0.5) K/uL Baso # (Auto) (0-0.2) K/uL Immature Gran # (Auto) (0.00-0.02) K/uL Absolute Nucleated RBC (0-0) K/uL Nucleated RBC % (auto) % Poikilocytosis Anisocytosis Microcytosis PT (9.0-12.0) Seconds INR (0.9-1.1) APTT (21.0-31.0) Seconds PTT Ratio ABG pH 7.13 L* (7.35-7.45) ABG pCO2 60 H (35-46) mmHg ABG pO2 71 L (80-95) mmHg ABG HCO3 20 (19-24) mmol/L ABG O2 Saturation 87.0 L (90-95) % ABG Base Excess -9.7 L (-9-1.8) mEq/L Caesar Test Pos (Pos) VBG pH (7.36-7.41) VBG pCO2 (38-50) mmHg VBG pO2 mmHg VBG HCO3 mmol/L VBG O2 Saturation % VBG Base Excess mEq/L Barometric Pressure 731.9 mm/Hg Oxygen Given 100% Sodium (136-145) mmol/L Potassium (3.5-5.1) mmol/L Chloride (98-107) mmol/L Carbon Dioxide (21-32) mmol/L Anion Gap (3-11) BUN (7-18) mg/dl Creatinine (0.6-1.2) mg/dl Est Cr Clr Drug Dosing ml/min Est GFR ( Amer) ml/min Est GFR (Non-Af Amer) ml/min BUN/Creatinine Ratio (10-20) Glucose (70-99) mg/dl Lactate (0.4-2.0) mmol/L Calcium (8.5-10.1) mg/dl Magnesium (1.8-2.4) mg/dl Total Bilirubin (0.2-1) mg/dl AST (15-37) U/L ALT (12-78) U/L Alkaline Phosphatase (45-117) U/L Troponin I (0-0.045) ng/ml NT-Pro-B Natriuret Pep (0-450) pg/ml Total Protein (6.4-8.2) gm/dl Albumin (3.4-5.0) gm/dl Globulin (2.5-4.0) gm/dl Albumin/Globulin Ratio (0.9-2) HCG, Qual (Negative) Urine Opiates Screen (Neg) Ur Methadone, Qual (Neg) Urine Barbiturates (Neg) Ur Phencyclidine (PCP) (Neg) U Amphetamin/Meth Scrn (Neg) MDMA (Ecstasy) Screen (Neg) U Benzodiazepines Scrn (Neg) Ur Cocaine Metabolite (Neg) U Marijuana (THC) Screen (Neg) COVID-19 Eval Order SARS-CoV-2 (PCR) (Negative) Administered Medications Fentanyl Citrate (Fentanyl Bolus From Bag) 50 mcg IV Q60M PRN PRN Reason: Pain or Agitation Stop: 10/02/20 12:41 Last Admin: 09/18/20 14:59 Dose: 50 mcg Documented by: [id number] Admin: 09/18/20 14:46 Dose: 50 mcg Documented by: [id number] Admin: 09/18/20 14:24 Dose: 50 mcg Documented by: [id number] Admin: 09/18/20 13:49 Dose: 50 mcg Documented by: [id number] Propofol (Diprivan) 1,000 mg in 100 mls @ 30 mls/hr IV .Q3H20M [facility]; Protocol Stop: 09/21/20 12:44 Last Admin: 09/18/20 15:25 Dose: 50 mcg/kg/min, 30 mls/hr Documented by: [id number] Cosigned by: [id number] Fentanyl Citrate (Fentanyl Drip) 1,250 mcg in 250 mls @ 25 mls/hr IV .Q10H [facility]; Protocol Stop: 10/02/20 13:44 Last Titration: 09/18/20 14:58 Dose: 125 mcg/hr, 25 mls/hr Documented by: [id number] Cosigned by: [id number] Titration: 09/18/20 14:46 Dose: 100 mcg/hr, 20 mls/hr Documented by: [id number] Cosigned by: [id number] Titration: 09/18/20 14:24 Dose: 75 mcg/hr, 15 mls/hr Documented by: [id number] Cosigned by: [id number] Titration: 09/18/20 14:10 Dose: 50 mcg/hr, 10 mls/hr Documented by: [id number] Cosigned by: [id number] Admin: 09/18/20 13:44 Dose: 25 mcg/hr, 5 mls/hr Documented by: [id number] Cosigned by: [id number] Parenteral Electrolytes (Normosol-R) 1,000 mls @ 15 mls/hr IV .Q24H [facility] Stop: 10/18/20 12:44 Last Admin: 09/18/20 15:34 Dose: 15 mls/hr Documented by: [id number] Famotidine 20 mg/ Syringe 5 mls @ 2.5 mls/min IV DAILY [facility] Stop: 10/18/20 15:59 Last Admin: 09/18/20 15:53 Dose: 2.5 mls/min Documented by: [id number] Azithromycin 250 mg/ Dextrose 252.5 mls @ 125 mls/hr IV Q24H [facility] Stop: 09/25/20 15:59 Last Admin: 09/18/20 15:53 Dose: 125 mls/hr Documented by: [id number] Furosemide 40 mg/ Syringe 4 mls @ 4 mls/min IV BIDM [facility] Stop: 10/18/20 16:59 Last Admin: 09/18/20 16:52 Dose: 4 mls/min Documented by: [id number] Midazolam HCl (Versed) 125 mg in 250 mls @ 6 mls/hr IV .[id number] [facility]; Protocol Stop: 10/18/20 16:14 Last Admin: 09/18/20 16:00 Dose: 3 mg/hr, 6 mls/hr Documented by: [id number] Cosigned by: [id number] Insulin Aspart (Insulin Aspart 100 Units/Ml 3 Ml Pen) 0 units SC Q6 [facility] Stop: 10/18/20 14:29 Last Admin: 09/18/20 15:33 Dose: 6 units Documented by: [id number] Cosigned by: [id number] Insulin Glargine (Insulin Glargine Solostar 100 Units/Ml 3 Ml Pen) 5 units SC QAM [facility] Stop: 10/18/20 14:29 Last Admin: 09/18/20 15:36 Dose: 5 units Documented by: [id number] Cosigned by: [id number] Propofol (Propofol Bolus From Bag) 20 mg IV Q5M PRN PRN Reason: Sedation Stop: 09/21/20 12:41 Last Admin: 09/18/20 14:45 Dose: 20 mg Documented by: [id number] Cosigned by: [id number] Admin: 09/18/20 14:16 Dose: 20 mg Documented by: [id number] Cosigned by: [id number] Admin: 09/18/20 14:08 Dose: 20 mg Documented by: [id number] Cosigned by: [id number] Admin: 09/18/20 14:03 Dose: 20 mg Documented by: [id number] Cosigned by: [id number] Admin: 09/18/20 13:57 Dose: 20 mg Documented by: [id number] Cosigned by: [id number] Discontinued Medications Albuterol (Albut/Ipratrop 3mg/0.5mg Neb 3 Ml Vial) 12 ml NEB ONE ONE Stop: 09/18/20 11:31 Last Admin: 09/18/20 11:40 Dose: 12 ml Documented by: [id number] Albuterol (Albut/Ipratrop 3mg/0.5mg Neb 3 Ml Vial) Confirm Administered Dose 12 ml .ROUTE .STK-MED ONE Stop: 09/18/20 11:31 Last Admin: 09/18/20 12:09 Dose: Not Given Documented by: [id number] Furosemide (Furosemide 40 Mg/4 Ml Vial) 60 mg IV NOW STA Stop: 09/18/20 11:37 Last Admin: 09/18/20 11:40 Dose: 60 mg Documented by: [id number] Furosemide (Furosemide 10 Mg/Ml 10 Ml Vial) Confirm Administered Dose 10 mg IV .STK-MED ONE Stop: 09/18/20 11:38 Last Admin: 09/18/20 12:08 Dose: Not Given Documented by: [id number] Furosemide (Furosemide 40 Mg/4 Ml Vial) 40 mg IV NOW STA Stop: 09/18/20 12:43 Last Admin: 09/18/20 13:44 Dose: 40 mg Documented by: [id number] Propofol (Diprivan) 1,000 mg in 100 mls @ 11.82 mls/hr IV .Q8H28M [facility]; Protocol Stop: 09/21/20 11:59 Last Titration: 09/18/20 13:36 Dose: 50 mcg/kg/min, 29.6 mls/hr Documented by: [id number] Titration: 09/18/20 13:31 Dose: 45 mcg/kg/min, 26.6 mls/hr Documented by: [id number] Titration: 09/18/20 13:26 Dose: 40 mcg/kg/min, 23.6 mls/hr Documented by: [id number] Titration: 09/18/20 13:21 Dose: 30 mcg/kg/min, 17.7 mls/hr Documented by: [id number] Titration: 09/18/20 13:17 Dose: 20 mcg/kg/min, 11.8 mls/hr Documented by: [id number] Titration: 09/18/20 13:06 Dose: 10 mcg/kg/min, 5.9 mls/hr Documented by: [id number] Admin: 09/18/20 12:00 Dose: 5 mcg/kg/min, 3 mls/hr Documented by: [id number] Cosigned by: [id number] Cefepime HCl (Maxipime) 2,000 mg in 20 mls @ 5 mls/min IV NOW STA; Protocol Stop: 09/18/20 11:58 Last Admin: 09/18/20 12:33 Dose: 5 mls/min Documented by: [id number] Midazolam HCl (Midazolam Hcl 125mg/250ml D5w) Confirm Administered Dose 125 mg .ROUTE .STK-MED ONE Stop: 09/18/20 15:55 Last Admin: 09/18/20 16:47 Dose: Not Given Documented by: [id number] Miscellaneous (Rapid Sequence Induction Bag) Confirm Administered Dose 1 ea .ROUTE .STK-MED ONE Stop: 09/18/20 11:28 Last Admin: 09/18/20 12:09 Dose: 1 ea Documented by: [id number] Miscellaneous (Icu Moderate Hyperglycemia Protocol) 1 ea N/A ONE ONE Stop: 09/18/20 12:43 Last Admin: 09/18/20 16:10 Dose: Not Given Documented by: [id number] Nitroglycerin (Nitroglycerin 2% Ointment 30gm Tube) 3 inch EXT NOW STA Stop: 09/18/20 11:37 Last Admin: 09/18/20 11:40 Dose: 3 inch Documented by: [id number] Nitroglycerin (Nitroglycerin 2% Ointment 30gm Tube) Confirm Administered Dose 18 inch .ROUTE .STK-MED ONE Stop: 09/18/20 11:38 Last Admin: 09/18/20 12:08 Dose: Not Given Documented by: [id number] Propofol (Propofol Bolus From Bag) 20 mg IV Q5M PRN PRN Reason: Sedation Stop: 09/21/20 11:51 Last Admin: 09/18/20 13:47 Dose: 20 mg Documented by: [id number] Cosigned by: [id number] Admin: 09/18/20 13:36 Dose: 20 mg Documented by: [id number] Cosigned by: [id number] Admin: 09/18/20 13:31 Dose: 20 mg Documented by: [id number] Cosigned by: [id number] Admin: 09/18/20 13:25 Dose: 20 mg Documented by: [id number] Cosigned by: [id number] Admin: 09/18/20 13:19 Dose: 20 mg Documented by: [id number] Cosigned by: [id number] Admin: 09/18/20 13:07 Dose: 20 mg Documented by: [id number] Cosigned by: [id number] Admin: 09/18/20 12:38 Dose: 20 mg Documented by: [id number] Cosigned by: [id number] Imaging Data Radiologist's Impression: Chest X-Ray 09/18/20 11:30 XR chest 1V portable HISTORY: Shortness of breath. COMPARISON: Chest 05/23/2020. FINDINGS: The cardiac silhouette remains enlarged. Near diffuse bilateral airspace opacities which have progressed in the interval. No pneumothorax. IMPRESSION: Significant progression of the near diffuse bilateral airspace opacities. ACT 112: Negative or not required by law. Electronically signed by: Arnol Kenney M.D. 09/18/2020 11:40 AM Chest X-Ray 09/18/20 11:54 XR chest 1V portable HISTORY: post intubation COMPARISON: Chest 09/18/2020. FINDINGS: The endotracheal tube terminates approximately 1.7 cm from the misti. Near diffuse bilateral airspace opacities have slightly improved. There appear to be small bilateral pleural effusions. No pneumothorax. IMPRESSION: 1. The endotracheal tube terminates 1.7 cm from the misti. 2. Near diffuse bilateral airspace opacities have slightly improved. 3. Suspect small bilateral pleural effusions. ACT 112: Negative or not required by law. Electronically signed by: Arnol Kenney M.D. 09/18/2020 12:13 PM Discharge Plan Visit Data Chief Complaint: Respiratory Distress ED Provider: Ja Bronson Discharge Problem: Acute respiratory distress, CHF (congestive heart failure), Tachycardia, Leukocytosis, Elevated lactic acid level Patient Disposition: Admitted As Inpatient Condition: Critical Discharge Instructions Interventions: ED Discharge Assessment Last Done: 09/18/20 14:42 Discharge Problem: CHF (congestive heart failure) Qualifiers: Heart failure type: unspecified Heart failure chronicity: acute Qualified Code(s): I50.9 - Heart failure, unspecified Leukocytosis Qualifiers: Leukocytosis type: unspecified Qualified Code(s): D72.829 - Elevated white blood cell count, unspecified
[2020-09-18 13:23] LABS: Amphetamines+Metham, Urine Neg (Neg); Barbiturates, Urine Neg (Neg); Benzodiazepine, Urine Neg (Neg); Cocaine, Urine Neg (Neg); MDMA (Ecstacy), Urine Neg (Neg); Methadone, Urine Neg (Neg); Opiate, Urine Neg (Neg); Phencyclidine, Urine Neg (Neg)
[2020-09-18] MEDS: fentaNYL DRIP 1,250 MCG/250 ML BAG IV SCH ×2 (13:44→21:28)
[2020-09-18] MEDS ORDERED: PHARMACY GLYCEMIC MGMT CONSULT PRN (13:51)
[2020-09-18] MEDS ORDERED: GLUCAGON FOR INJ 1 MG VIAL IM PRN (15:15)
[2020-09-18] MEDS ORDERED: GLUCOSE 10 TABS/TUBE PO PRN (15:15)
[2020-09-18] MEDS ORDERED: CARBOHYDRATES FOR HYPOGLYCEMIA PO PRN (15:15)
[2020-09-18] MEDS ORDERED: DEXTROSE 50% 50 ML SYRINGE IV PRN (15:15)
[2020-09-18] MEDS ORDERED: GLUCOSE 40% GEL 15 GM TUBE PO PRN (15:15)
[2020-09-18] MEDS ORDERED: ICU PROTOCOL FOR HYPERGLYCEMIA PRN (15:23)
[2020-09-18] MEDS: propofoL 1,000 MG/100 ML VIAL IV SCH ×4 (15:25→22:40)
[2020-09-18] MEDS: INSULIN ASPART 100 UNITS/ML 3 ML PEN SC SCH ×3 (15:33→21:18)
[2020-09-18] MEDS: INSULIN GLARGINE SOLOSTAR 100 UNITS/ML 3 ML PEN SC SCH (15:36)
[2020-09-18] MEDS: FAMOTIDINE 20 MG in SYRINGE 3 ML IV SCH (15:53)
[2020-09-18] MEDS: MIDAZOLAM HCL 125MG/250ML D5W ONE ×2 (16:00→16:47)
[2020-09-18] MEDS ORDERED: AZITHROMYCIN 250 MG in DEXTROSE 5% 250 ML IV SCH (16:00)
[2020-09-18] MEDS ORDERED: Nursing to Pharmacy Communication SCH ×3 (16:00→19:30)
[2020-09-18] MEDS: MIDAZOLAM HCL 125 MG/250 ML BAG IV SCH (16:00)
[2020-09-18] MEDS ORDERED: MIDAZOLAM BOLUS FROM BAG IV PRN (16:02)
--- NOTE | 2020-09-18 16:28 | XRay Report ---
KUB HISTORY: NG tube placement COMPARISON: None. FINDINGS: The endotracheal tube terminates approximately 1.5 cm from the misti. Near diffuse bilater al airspace opacities and small bilateral pleural effusions persist. A nasogastric tube terminates in the stomach. Partially visualized lumbar spinal fusion hardware is noted. No renal calculi. No uret eral calculi. No pneumoperitoneum or pneumatosis. IMPRESSION: 1. Nasogastric tube terminates in the stomach. 2. Endotracheal tube terminates 1.5 cm from the misti. 3. Near diffuse bilateral airspace opacities persist. ACT 112: Negative or not required by law. Electronically signed by: Arnol Kenney M.D. 09/18/2020 4:27 PM
[2020-09-18] MEDS: FUROSEMIDE 40 MG in SYRINGE 0 ML IV SCH (16:52)
--- NOTE | 2020-09-18 16:52 | Cardiology Consultation ---
Date of Consultation September 18, 2020 Assessment & Plan (1) Acute hypoxemic respiratory failure: (2) Pulmonary edema cardiac cause: (3) Lactic acidosis: (4) Aortic stenosis: (5) S/P coronary artery stent placement: 40-year-old female presents with respiratory failure, has been found to have significant lactic acidosis, minimally elevated troponin I, and abnormal chest x-ray consistent with pulmonary edema from congestive heart failure or atypical pneumonia. Her SARS-CoV-2 PCR test is negative. Echocardiogram reveals preserved LV systolic function, however contractility is somewhat less than expected for heart rate of 130 bpm which was present at the time of the image acquisition just after endotracheal tube intubation. The aortic valve is not well visualized on 2D imaging, but is at least mildly calcified. Although there has been concern for have a congenitally bicuspid aortic valve, previous studies including transesophageal echocardiogram performed Aug, 2017, previously revealed trileaflet aortic valve with congenitally dysmorphic morphology (early onset calcification) with longstanding history of some degree of aortic valve stenosis and regurgitation noted over the last several years. With regards to the hemodynamic assessment of aortic stenosis, there is somewhat discordant data. At the time of cardiac catheterization in January,, peak to peak gradient across the valve was measured to be only 10-20 mmHg suggestive of only mild aortic stenosis at that time. Doppler velocities that increased as of April 2020 consistent with moderate aortic valve stenosis. Echocardiogram performed today reveals transvalvular continuous-wave Doppler velocities in the range of 3.8 to 4 m/s suggestive of moderate to borderline severe or even severe aortic stenosis. It is also concerning that her white blood cell count is 45K. -At present I recommend ongoing ventilator support and diuretic therapy. Agree with evaluation for atypical pneumonia and broad-spectrum antibiotic coverage. -Endocarditis is certainly a consideration and blood cultures were already o btained. Will trend troponin I and EKG tracings. Continue ASA , plavix, atorvastatin. To consider STEVEN evaluation once tachycardia and respiration rate settles down, while patient is on the ventilator for further evaluation. Her oral gastric tube will need to be removed for the procedure. Case discuss with Dr Armenta by phone to coordinate care. History of Present Illness Attending Physician: Suleiman More MD History of Present Illness Ms. Gonzalez is a 40-year-old female seen in cardiology consultation per the request of Anali Damon PA-C of the [facility] service for the evaluation of respiratory failure with suspected congestive heart failure, and aortic valve stenosis. The patient is well-known to our cardiology service and is actually oscillated between our group and [facility] [place] in the last few years. The patient was intubated and on sedation including propofo, fentanyl, and Versed at the time of my assessment in ICU room 104. She remained tachypneic with respiratory rate of around 30 breaths/min, and sinus tachycardia 119 bpm was present. Thus far she has received a total of 100 mg of IV furosemide, with approximately 1.3 L of urine output thus far. Patient reportedly arrived to the emergency room today in fulminant respiratory distress requesting that she be intubated. Chest x-ray revealed bilateral pulmonary edema. She underwent endotracheal intubation in the emergency room and has been admitted to the intensive care unit. As described in the admission history and physical, she has a complex history including cardiac disease as noted below, chronic hepatitis C virus, opioid dependence, polysubstance abuse, and depression. Cardiac History: Evaluation for unstable angina, January,, prompting cardiac catheterization, 02/23/2020 drug-eluting stents to the right PDA branch of the right coronary artery. Per report, findings at the time were notable for 30 to 40% mid LAD stenosis 40% stenosis of the proximal circumflex was large and codominant with a 90% stenosis in the mid PDA (treated with drug-eluting stent), 70% distal PDA stenosis, 20% mid circumflex stenosis The previously placed stent in the ramus intermedius was patent with 30% stenosis just proximal to the stent Longstanding history of abnormal aortic valve Transesophageal echocardiogram performed Aug, 2017 revealing trileaflet aortic valve (per my personal review of images today 09/18/2020) with premature calcification Echocardiogram performed April, suggestive of moderate aortic valve stenosis Allergies Allergy/AdvReac Type Severity Reaction Status Date / Time lidocaine Allergy Intermediate HIVES Verified 08/09/20 22:47 procaine Allergy Intermediate HIVES Verified 08/09/20 22:47 Penicillins Allergy Mild HAD NO Verified 08/09/20 22:47 PROBLEM WITH ZOSYN strawberry Allergy Mild HIVES Verified 08/09/20 22:47 cephalexin AdvReac Intermediate YEAST Verified 08/09/20 22:47 INFECTIONS egg AdvReac Intermediate GI UPSET Verified 08/09/20 22:47 tramadol AdvReac Intermediate SEIZURES Verified 08/09/20 22:47 azithromycin AdvReac Mild STOMACH Verified 08/09/20 22:47 PAIN Home Medications Medication Instructions Recorded Confirmed Type escitalopram oxalate [Lexapro] 20 mg PO QAM 05/30/18 09/18/20 History levetiracetam [Keppra] 500 mg PO BID 05/30/18 09/18/20 History lisinopril 2.5 mg PO QAM 09/08/18 09/18/20 History metformin 1,000 mg PO BID 12/19/18 09/18/20 History atorvastatin 80 mg PO HS 12/28/18 09/18/20 History albuterol sulfate 2 puff INHALATION Q6 PRN 11/06/19 09/18/20 History buspirone 15 mg PO BID 11/06/19 09/18/20 History medroxyprogesterone [Depo-Provera] 150 mg IM Q3M 11/06/19 09/18/20 History nitroglycerin [Nitrostat] 0.4 mg SUBLINGUAL UD PRN 11/06/19 09/18/20 History glipizide 10 mg PO DAILYBD 02/22/20 09/18/20 History aspirin 81 mg PO QAM 30 Days #30 tab 02/24/20 09/18/20 Rx clopidogrel 75 mg PO QAM 30 Days #30 tab 02/24/20 09/18/20 Rx metoprolol succinate 25 mg PO DAILY 05/23/20 09/18/20 History ferrous sulfate 325 mg PO QDB #30 tab 05/25/20 09/18/20 Rx furosemide [Lasix] 20 mg PO DAILY 08/09/20 09/18/20 History gabapentin 400 mg PO TID 08/09/20 09/18/20 History meloxicam 15 mg PO DAILY 08/09/20 09/18/20 History potassium chloride [Klor-Con M20] 20 meq PO DAILY 08/09/20 09/18/20 History Asmanex Twisthaler 2 inh INHALATION DAILY 09/18/20 09/18/20 History buprenorphine-naloxone 1 tab SUBLINGUAL DAILY 09/18/20 09/18/20 History insulin glargine [Lantus Solostar 10 unit SUBCUT HS 09/18/20 09/18/20 History U-100 Insulin] liraglutide [Victoza 3-Zac] 1.2 mg SUBCUT DAILY 09/18/20 09/18/20 History meclizine 25 mg PO TID PRN 09/18/20 09/18/20 History Patient History Medical History Acute electrocardiogram changes Aortic regurgitation Aortic stenosis Asthma Atypical chest pain Cannabis abuse Chronic diastolic CHF (congestive heart failure) Coronary artery disease Depression Diabetes mellitus, type 2 Encounter for smoking cessation counseling GERD (gastroesophageal reflux disease) Hepatitis C "Antibiotic screen positive, quantitative RNA positive 08/30/17" Hepatosplenomegaly History of drug abuse History of DVT (deep vein thrombosis) History of renal calculi Hypertension Hypocalcemia Opiate abuse, continuous Overdose Seizure disorder Surgical History History of cardiac cath 2017- 1 ROJAS to ramus, 2 ROJAS to L circumflex. 40-50% plaque to LAD 2018- distal disease (80%) within PDA History of carpal tunnel surgery History of lumbar spinal fusion Hx of tonsillectomy S/P coronary artery stent placement Status post cholecystectomy Family History Other Diabetes Heart disease Hypertension Kidney stones Seizures Social History Smoking Status: Current every day smoker Tobacco Type: Cigarettes Cigarettes Per Day: 10; Number of Years Since Quit: 31; Second Hand Exposure: Yes; Do You Dip or Chew Tobacco: No; Tobacco Cessation Education Requested by Patient: No Hx Alcohol Use: No Hx Substance Use: No Preferred Language: [place] Communication Ability: Effective Visual Impairment: No Limitations Hearing Ability: Normal Parts Classifier Required: No Beliefs That Will Affect Care: None marital status: Single Current Living Situation: Significant Other Current Living Situation Comment: LIVES WITH ROOMMATES Other Information That Helps Us Care for You: No Feels Safe at Home: Yes Safety Concerns: Feels Safe At This Time Assistive Devices: None Review of Systems Review of Systems: Unobtainable due to endotracheal tube Physical Exam Physical Exam: Temp Pulse Resp BP Pulse Ox 37.4 C 119 H 38 H 113/60 99 09/18/20 15:10 09/18/20 15:10 09/18/20 15:10 09/18/20 15:10 09/18/20 15:10 Constitutional: Chronically ill in appearance Respiratory: Mildly decreased breath sounds the bases Cardiovascular: Tachycardic, 1/6 systolic murmur noted, 1+ edema Neurologic: Sedated Results & Data ([facility]) Vital Signs (Past 12 Hours) Vital Signs Temp Pulse Pulse Resp BP BP Pulse Ox 09/18/20 15:10 37.4 C 119 H 38 H 113/60 99 09/18/20 14:35 133 H 127/70 100 09/18/20 14:30 132 H 111/67 100 09/18/20 14:25 134 H 135/83 97 09/18/20 14:21 140 H 144/90 H 95 09/18/20 14:20 141 H 96 09/18/20 14:16 144 H 109/76 92 09/18/20 14:10 136 H 112/74 99 09/18/20 14:05 138 H 119/75 100 09/18/20 14:01 141 H 100/62 97 09/18/20 14:00 141 H 96 09/18/20 13:55 142 H 118/84 97 09/18/20 13:50 141 H 132/69 98 09/18/20 13:46 142 H 143/77 H 09/18/20 13:40 143 H 111/68 94 09/18/20 13:35 144 H 137/83 09/18/20 13:30 137 H 140/79 91 09/18/20 13:25 143 H 128/80 93 09/18/20 13:20 135 H 149/84 H 93 09/18/20 13:16 130 H 142/84 H 95 09/18/20 13:10 136 H 112/97 97 09/18/20 13:05 135 H 138/89 96 09/18/20 13:00 142 H 126/86 95 09/18/20 12:55 142 H 133/84 100 09/18/20 12:50 145 H 88 L 09/18/20 12:47 36.3 C L 09/18/20 12:46 145 H 142/83 H 86 L 09/18/20 12:41 146 H 128/67 82 L 09/18/20 12:40 136 H 92 09/18/20 12:35 132 H 128/85 95 09/18/20 12:30 129 H 138/85 99 09/18/20 12:26 144 H 136/103 H 98 09/18/20 12:21 146 H 21 93 09/18/20 12:20 132 H 98 09/18/20 12:10 134 H 96 09/18/20 12:00 140 H 167/97 H 98 09/18/20 11:55 140 H 167/99 H 97 09/18/20 11:50 141 H 182/110 H 86 L 09/18/20 11:49 145 H 46 H 182/95 H 09/18/20 11:45 137 H 169/125 H 62 L 09/18/20 11:41 145 H 159/95 H 92 09/18/20 11:40 143 H 87 L 09/18/20 11:36 143 H 145/100 H 90 09/18/20 11:30 144 H 90 09/18/20 11:29 143 H 91 09/18/20 11:25 143 H 182/95 H 91 09/18/20 11:20 146 H 146 H 44 H 93 Pulse Ox 09/18/20 15:10 99 09/18/20 14:35 09/18/20 14:30 09/18/20 14:25 09/18/20 14:21 09/18/20 14:20 09/18/20 14:16 09/18/20 14:10 09/18/20 14:05 09/18/20 14:01 09/18/20 14:00 09/18/20 13:55 09/18/20 13:50 09/18/20 13:46 09/18/20 13:40 09/18/20 13:35 09/18/20 13:30 09/18/20 13:25 09/18/20 13:20 09/18/20 13:16 09/18/20 13:10 09/18/20 13:05 09/18/20 13:00 09/18/20 12:55 09/18/20 12:50 09/18/20 12:47 09/18/20 12:46 09/18/20 12:41 09/18/20 12:40 09/18/20 12:35 09/18/20 12:30 09/18/20 12:26 09/18/20 12:21 09/18/20 12:20 09/18/20 12:10 09/18/20 12:00 09/18/20 11:55 09/18/20 11:50 09/18/20 11:49 09/18/20 11:45 09/18/20 11:41 09/18/20 11:40 09/18/20 11:36 09/18/20 11:30 09/18/20 11:29 09/18/20 11:25 09/18/20 11:20 Laboratory Results Cardiac Enzymes 09/18/20 Range/Units 11:34 AST 32 (15-37) U/L Troponin I 0.264 H* (0-0.045) ng/ml Coagulation 09/18/20 Range/Units 11:34 PT 12.0 (9.0-12.0) Seconds APTT 25.9 (21.0-31.0) Seconds CBC 09/18/20 Range/Units 11:35 WBC 48.95 H* (4.8-10.8) K/uL RBC 4.33 (4.2-5.4) M/uL Hgb 10.0 L (12.0-16.0) g/dL Hct 33.1 L (37-47) % Plt Count 538 H (130-400) K/uL Neut # (Auto) 40.55 H (1.4-6.5) K/uL Lymph # (Auto) 5.18 H (1.2-3.4) K/uL [place] # (Auto) 2.56 H (0.11-0.59) K/uL Eos # (Auto) 0.05 (0-0.5) K/uL Baso # (Auto) 0.10 (0-0.2) K/uL Comprehensive Metabolic Panel 09/18/20 Range/Units 11:34 Sodium 140 (136-145) mmol/L Potassium 4.2 (3.5-5.1) mmol/L Chloride 108 H (98-107) mmol/L Carbon Dioxide 19 L (21-32) mmol/L BUN 10 (7-18) mg/dl Creatinine 1.07 (0.6-1.2) mg/dl Glucose 272 H (70-99) mg/dl Calcium 8.8 (8.5-10.1) mg/dl AST 32 (15-37) U/L ALT 19 (12-78) U/L Alkaline Phosphatase 79 (45-117) U/L Total Protein 7.7 (6.4-8.2) gm/dl Albumin 3.3 L (3.4-5.0) gm/dl Intake and Output 09/18/20 09/18/20 09/18/20 06:59 14:59 22:59 Intake Total 24.828 / 24.828 Balance 24.828 / 24.828 Intake: IV 24.828 / 24.828 fentaNYL DRIP 1,250 mcg In 250 14.000 / 14.000 ml @ 25 MCG/HR 5 mls/hr IV . Q50H [facility] Rx#:[id number] propofoL 1,000 mg In 100 ml @ 10.828 / 10.828 20 MCG/KG/MIN 11.82 mls/hr IV . Q8H28M [facility] Rx#:[id number] Other: Weight 100 kg Weight Measurement Method Built in [facility] Patient Weight 09/19/20 06:59 Weight 100 kg Diagnostic Findings EKG performed 09/18/2020 at 11:34 AM revealed sinus tachycardia 144 bpm, baseline artifact, nonspecific repolarization changes, technically limited tracing. Repeat tracing, 09/18/2020 at 12:41 PM revealed sinus tachycardia 130 bpm, nonspecific ST-T wave abnormality.
[2020-09-18] MEDS ORDERED: CLOPIDOGREL BISULFATE 75 MG TAB PEG ONE (17:15)
[2020-09-18] MEDS ORDERED: cefTRIAXone SODIUM 2,000 MG in DEXTROSE 5% 50 ML IV SCH (18:00)
[2020-09-18] MEDS: ICU ELECTROLYTE REPLACEMENT PROTOCOL SCH (18:10)
[2020-09-18 18:29] LABS: iSTAT Arterial Blood Gas HCO3 23 meg/L (19-24); iSTAT Arterial Blood Gas pCO2 37 mmHg (35-46); iSTAT Arterial Blood Gas pH 7.39 (7.35-7.45); iSTAT Arterial Blood Gas pO2 70 mmHg (80-95); iSTAT Carbon Dioxide 24 mmol/L (24-31)
[2020-09-18] MEDS: ASPIRIN 81 MG CHEW NG SCH (18:30)
[2020-09-18] MEDS ORDERED: fentaNYL DRIP 1,250 MCG/250 ML BAG IV SCH (19:30)
[2020-09-18] MEDS ORDERED: FUROSEMIDE 40 MG/4 ML VIAL IV SCH (21:00)
[2020-09-18] MEDS: HEPARIN SOD 5,000 UNIT/0.5 ML VIAL SQ SCH (21:21)
[2020-09-18] MEDS ORDERED: ETOMIDATE 2 MG/ML 20 ML VIAL IV ONE (21:38)
[2020-09-18] MEDS ORDERED: ROCURONIUM BROMIDE 10 MG/ML 5 ML VIAL IV ONE (21:38)
--- NOTE | 2020-09-18 23:46 | Electrocardiogram Report ---
Test Reason : Blood Pressure : / mmHG Vent. Rate : 144 BPM Atrial Rate : 141 BPM P-R Int : 000 ms QRS Dur : 084 ms QT Int : 320 ms P-R-T Axes : 000 046 242 degrees QTc Int : 495 ms Poor data quality, interpretation may be adversely affected Sinus tachycardia Abnormal ECG When compared with ECG of 25-MAY-2020 06:41, Vent. rate has increased BY 74 BPM T wave inversion now evident in Inferior leads Confirmed by Mohit Girard ([id number]) on 09/18/2020 11:46:10 PM Referred By: REFERRED SELF Confirmed By:Mohit Girard
--- NOTE | 2020-09-18 23:50 | Electrocardiogram Report ---
Test Reason : Blood Pressure : / mmHG Vent. Rate : 134 BPM Atrial Rate : 134 BPM P-R Int : 136 ms QRS Dur : 090 ms QT Int : 294 ms P-R-T Axes : 068 063 -73 degrees QTc Int : 439 ms Poor data quality, interpretation may be adversely affected Sinus tachycardia Possible Left atrial enlargement Nonspecific ST and T wave abnormality Abnormal ECG When compared with ECG of 18-SEP-2020 11:34, No significant change Confirmed by Mohit Girard ([id number]) on 09/18/2020 11:50:10 PM Referred By: REFERRED SELF Confirmed By:Mohit Girard
[2020-09-19] MEDS: INSULIN ASPART 100 UNITS/ML 3 ML PEN SC SCH ×6 (00:25→20:12)
[2020-09-19] MEDS: propofoL 1,000 MG/100 ML VIAL IV SCH ×9 (01:13→21:09)
[2020-09-19] MEDS: MIDAZOLAM HCL 125 MG/250 ML BAG IV SCH ×2 (04:46→19:09)
[2020-09-19] MEDS: fentaNYL DRIP 1,250 MCG/250 ML BAG IV SCH ×6 (04:47→21:09)
[2020-09-19 04:54] LABS: iSTAT Arterial Blood Gas HCO3 23 meg/L (19-24); iSTAT Arterial Blood Gas pCO2 36 mmHg (35-46); iSTAT Arterial Blood Gas pH 7.42 (7.35-7.45); iSTAT Arterial Blood Gas pO2 70 mmHg (80-95); iSTAT Carbon Dioxide 24 mmol/L (24-31)
[2020-09-19 05:27] LABS: Hematocrit (blood only) 24.9 % (37-47); Hemoglobin 7.5 g/dL (12.0-16.0); Mean Corpuscular Hemoglobin 22.7 pg (25-34); Mean Corpuscular Hgb Conc 30.1 g/dL (32-36); Mean Corpuscular Volume 75.2 fL (80-100); Mean Platelet Volume 9.6 fL (7.4-10.4); Nucleated RBC # (auto) 0.06 K/uL (0-0); Nucleated RBC % (auto) 0.2 %; Platelet Count 295 K/uL (130-400); RDW Coefficient of Variation 20.8 % (11.5-14.5); RDW Standard Deviation 54.2 fL (36.4-46.3); Red Blood Count 3.31 M/uL (4.2-5.4); White Blood Count 25.57 K/uL (4.8-10.8)
[2020-09-19 05:46] LABS: Anisocytosis Present; Basophils # (auto) 0.01 K/uL (0-0.2); Eosinophils # (auto) 0.01 K/uL (0-0.5); Hypochromasia Present; Immature Granulocytes # (auto) 0.11 K/uL (0.00-0.02); Immature Granulocytes % (auto) 0.4 %; Lymphocytes # (auto) 1.61 K/uL (1.2-3.4); Lymphocytes % (auto) 6.3 %; Monocytes # (auto) 1.39 K/uL (0.11-0.59); Monocytes % (auto) 5.4 %; Neutrophils # (auto) 22.44 K/uL (1.4-6.5); Neutrophils % (auto) 87.9 %; Polychromasia 1+
[2020-09-19 05:54] LABS: Albumin Level 2.6 gm/dl (3.4-5.0); BUN Creatinine Ratio 22.6 (10-20); Bilirubin Direct 0.2 mg/dl (0-0.2); Calcium 7.7 mg/dl (8.5-10.1); Creatinine Clr Calc Pharmacy 91.3 ml/min; Est GFR (Non-African American) 84.5 ml/min; Magnesium 1.6 mg/dl (1.8-2.4); Potassium 3.6 mmol/L (3.5-5.1)
[2020-09-19 06:04] LABS: Bilirubin,Total 0.4 mg/dl (0.2-1); Phosphorus 4.6 mg/dl (2.5-4.9); Total Protein 6.4 gm/dl (6.4-8.2); Troponin I 0.593 ng/ml (0-0.045)
[2020-09-19] MEDS: ICU ELECTROLYTE REPLACEMENT PROTOCOL SCH ×2 (06:31→17:21)
[2020-09-19] MEDS: MAGNESIUM SULFATE / D5W 1 GM/100 ML BAG IV SCH ×4 (06:41→13:20)
[2020-09-19] MEDS: POTASSIUM CHLORIDE 20 MEQ/15 ML UDC NG SCH ×2 (06:41→12:11)
--- NOTE | 2020-09-19 06:55 | Procedure Note ---
Procedure Note Date of Service September 19, 2020 R radial arterial advice line rn: Chava Armenta Indication: HD monitoring, frequent ABG Consent: emergent EBL less than 5 ml Procedure: the R wrist was preped and draped in sterile fashion. Using US guidance, the R radial artery was identified and using modified modified Seldinger technique, a 20 Ga catheter was placed under direct US visualization. Arterial blood return and arterial wave form transduced. Sterile dressing applied. Pt tolerated well without obvious complications. Coding CPT Codes Tubes, Drains, and Vasc Access - Tubes, Drains, and Vasc Access: [id number] Insertion Catheter, Artery ([id number]) [facility] Procedure Codes (Charges) Tubes, Drains, and Vasc Access Procedure 1: Tubes, Drains, and Vasc Access: [id number] Insertion Catheter, Artery
--- NOTE | 2020-09-19 07:18 | Critical Care Progress Note ---
Date of Service September 19, 2020 Assessment & Plan (1) Hypoxia: (2) Acute CHF (congestive heart failure): (3) Acute on chronic heart failure with preserved ejection fraction (HFpEF): (4) Acute hypoxemic respiratory failure: (5) Pulmonary edema cardiac cause: (6) Lactic acidosis: Impression: 40-year-old female with complex medical history including valvular heart disease, medical noncompliance, obesity, and diastolic heart failure admitted with flash pulmonary edema and profound hypertension. Recommendations: 1. Neurologic: Continue sedation with propofol and as needed fentanyl. The patient has a longstanding history of substance abuse and is on Suboxone in the outpatient setting. Will need to observe for signs of withdrawal. 2. Cardiovascular: Flash pulmonary edema: Continue efforts at diuresis and optimization of blood pressure control. We will place her on hydralazine as needed. Discussed with Cardiology consult will be obtained obtain transesophageal echo today. 3. Pulmonary: Flash pulmonary edema: Wean to SBT. No obvious evidence of pneumonia Check urinary Legionella antigen given her markedly elevated white blood cell count although this could be due to a stress response. Fairly significant metabolic and respiratory acidosis on presentation 4. Renal: Aggressive diuresis. Electrolyte replacement. Follow serum creatinine. Metabolic and respiratory acidosis with an elevated lactate at 6.5: Resolved. 5. ID: Discontinuing IV antibiotics 6. GI: N.p.o. for now. Initiate H2 vijay for prophylaxis 7. Endocrine: History of diabetes. Glycemic consult for glycemic control. May require insulin infusion depending on clinical response. 8. Heme-onc: Marked leukocytosis of unclear etiology. Differential appears to be consistent with a left shift. transition 0.5mg twice daily Lovenox given history of DVT Patient's overall prognosis is guarded at this point time. A total of 50 minutes in critical care time was spent in evaluation management and coordination of care of this patient. Admission and Anticipated Discharge Date Admission Date: September 18, 2020 Subjective No overnight events Review of Systems Review of Systems: Unobtainable due to endotracheal tube Physical Exam Physical Exam: General: sedated. nontoxic. Skin: Warm, dry, No stigmata of endocarditis Head: Atraumatic Ears, nose, mouth and throat: airway Obscured by endotracheal tube Cardiovascular: Normal peripheral perfusion Respiratory: no respiratory distress Gastrointestinal: Non distended Musculoskeletal: No deformity Results & Data Results & Data ([facility]) Vital Signs (Past 12 Hours) Vital Signs Temp Pulse Resp BP Pulse Ox 09/19/20 06:30 37.5 C 86 93/52 L 98 09/19/20 06:15 37.5 C 85 90/52 L 98 09/19/20 06:01 37.5 C 85 98 09/19/20 06:00 37.5 C 85 91/53 L 98 09/19/20 05:45 37.4 C 85 91/54 L 99 09/19/20 05:30 37.4 C 87 91/52 L 99 09/19/20 05:15 37.6 C H 91 H 91/56 L 100 09/19/20 05:00 37.6 C H 94 H 09/19/20 04:45 37.7 C H 93 H 106/59 L 93 09/19/20 04:33 94 H 37 H 93 09/19/20 04:00 37.7 C H 94 H 102/64 94 09/19/20 03:45 37.7 C H 93 H 104/52 L 93 09/19/20 03:30 37.7 C H 94 H 92/63 L 94 09/19/20 03:15 37.7 C H 96 H 101/58 L 93 09/19/20 02:45 37.7 C H 96 H 96/58 L 93 09/19/20 02:30 37.7 C H 95 H 97/58 L 91 09/19/20 02:15 37.7 C H 97 H 92/51 L 92 09/19/20 02:08 97 H 36 H 94 09/19/20 02:00 37.8 C H 96 H 96/59 L 95 09/19/20 01:45 37.8 C H 98 H 102/56 L 94 09/19/20 01:00 37.8 C H 97 H 92/58 L 95 09/19/20 00:32 37.7 C H 97 H 89/46 L 96 09/19/20 00:15 37.7 C H 101 H 98/60 L 99 09/19/20 00:00 37.7 C H 101 H 91/60 L 94 09/18/20 23:55 101 H 09/18/20 23:45 37.6 C H 101 H 96/63 L 94 09/18/20 23:30 37.6 C H 101 H 93/58 L 94 09/18/20 23:15 37.6 C H 102 H 91/59 L 94 09/18/20 23:00 101 H 100/57 L 94 09/18/20 22:45 37.5 C 102 H 95/56 L 94 09/18/20 22:30 102 H 97/55 L 94 09/18/20 22:15 103 H 38 H 101/61 94 09/18/20 22:00 103 H 107/58 L 96 09/18/20 21:45 105 H 94/57 L 96 09/18/20 21:30 105 H 89/62 L 96 09/18/20 21:15 107 H 97/68 L 96 09/18/20 21:00 107 H 104/63 96 09/18/20 20:45 108 H 104/74 96 09/18/20 20:30 110 H 91/70 L 96 09/18/20 20:15 110 H 97/67 L 96 09/18/20 20:00 37.5 C 110 H 95/65 L 97 09/18/20 19:45 110 H 93/59 L 98 09/18/20 19:30 114 H 99/65 L 97 Laboratory Results 09/19/20 09/19/20 09/19/20 Range/Units 07:35 05:17 05:17 WBC (4.8-10.8) K/uL RBC (4.2-5.4) M/uL Hgb (12.0-16.0) g/dL Hct (37-47) % MCV (80-100) fL MCH (25-34) pg MCHC (32-36) g/dL RDW Std Deviation (36.4-46.3) fL RDW Coeff of Hannah (11.5-14.5) % Plt Count (130-400) K/uL MPV (7.4-10.4) fL Immature Gran % (Auto) % Neut % (Auto) % Lymph % (Auto) % [place] % (Auto) % Eos % (Auto) % Baso % (Auto) % Neut # (Auto) (1.4-6.5) K/uL Lymph # (Auto) (1.2-3.4) K/uL [place] # (Auto) (0.11-0.59) K/uL Eos # (Auto) (0-0.5) K/uL Baso # (Auto) (0-0.2) K/uL Immature Gran # (Auto) (0.00-0.02) K/uL Absolute Nucleated RBC (0-0) K/uL Nucleated RBC % (auto) % Polychromasia Hypochromasia Poikilocytosis Anisocytosis Microcytosis PT (9.0-12.0) Seconds INR (0.9-1.1) APTT (21.0-31.0) Seconds PTT Ratio POC pH (7.35-7.45) POC pCO2 (35-46) mmHg POC pO2 (80-95) mmHg POC HCO3 (19-24) quinn/L POC Total CO2 (24-31) mmol/L POC Base Excess (-9-1.8) quinn/L ABG pH (7.35-7.45) ABG pCO2 (35-46) mmHg ABG pO2 (80-95) mmHg ABG HCO3 (19-24) mmol/L POC ABG O2 Sat (90-95) % ABG O2 Saturation (90-95) % ABG Base Excess (-9-1.8) mEq/L Caesar Test (Pos) VBG pH (7.36-7.41) VBG pCO2 (38-50) mmHg VBG pO2 mmHg VBG HCO3 mmol/L VBG O2 Saturation % VBG Base Excess mEq/L Barometric Pressure mm/Hg Oxygen Given Sodium 141 (136-145) mmol/L Potassium 3.6 (3.5-5.1) mmol/L Chloride 110 H (98-107) mmol/L Carbon Dioxide 24 (21-32) mmol/L Anion Gap 7.0 (3-11) BUN 19 H D (7-18) mg/dl Creatinine 0.85 (0.6-1.2) mg/dl Est Cr Clr Drug Dosing 91.3 ml/min Est GFR ( Amer) 98.0 ml/min Est GFR (Non-Af Amer) 84.5 ml/min BUN/Creatinine Ratio 22.6 H (10-20) Glucose 157 H (70-99) mg/dl POC Glucose 168 H (70-99) mg/dl POC Glucose (other) (70-99) mg/dl Estimat Average Glucose 154 mg/dl Hemoglobin A1c 7.0 H (4.5-5.6) % Lactate (0.4-2.0) mmol/L Calcium 7.7 L (8.5-10.1) mg/dl Phosphorus 4.6 (2.5-4.9) mg/dl Magnesium 1.6 L (1.8-2.4) mg/dl Total Bilirubin 0.4 D (0.2-1) mg/dl Direct Bilirubin 0.2 (0-0.2) mg/dl AST 21 (15-37) U/L ALT 14 (12-78) U/L Alkaline Phosphatase 58 (45-117) U/L Troponin I 0.593 H* (0-0.045) ng/ml NT-Pro-B Natriuret Pep (0-450) pg/ml Total Protein 6.4 (6.4-8.2) gm/dl Albumin 2.6 L (3.4-5.0) gm/dl Globulin (2.5-4.0) gm/dl Albumin/Globulin Ratio (0.9-2) HCG, Qual (Negative) Nasal Screen MRSA (PCR) (Negative) Urine Opiates Screen (Neg) Ur Methadone, Qual (Neg) Urine Barbiturates (Neg) Ur Phencyclidine (PCP) (Neg) U Amphetamin/Meth Scrn (Neg) MDMA (Ecstasy) Screen (Neg) U Benzodiazepines Scrn (Neg) Ur Cocaine Metabolite (Neg) U Marijuana (THC) Screen (Neg) COVID-19 Eval Order SARS-CoV-2 (PCR) (Negative) Urine Legionella Ag 09/19/20 09/19/20 09/19/20 Range/Units 05:17 04:41 04:40 WBC 25.57 H D (4.8-10.8) K/uL RBC 3.31 L (4.2-5.4) M/uL Hgb 7.5 L (12.0-16.0) g/dL Hct 24.9 L (37-47) % MCV 75.2 L (80-100) fL MCH 22.7 L (25-34) pg MCHC 30.1 L (32-36) g/dL RDW Std Deviation 54.2 H (36.4-46.3) fL RDW Coeff of Hannah 20.8 H (11.5-14.5) % Plt Count 295 (130-400) K/uL MPV 9.6 (7.4-10.4) fL Immature Gran % (Auto) 0.4 % Neut % (Auto) 87.9 % Lymph % (Auto) 6.3 % [place] % (Auto) 5.4 % Eos % (Auto) 0.0 % Baso % (Auto) 0.0 % Neut # (Auto) 22.44 H (1.4-6.5) K/uL Lymph # (Auto) 1.61 (1.2-3.4) K/uL [place] # (Auto) 1.39 H (0.11-0.59) K/uL Eos # (Auto) 0.01 (0-0.5) K/uL Baso # (Auto) 0.01 (0-0.2) K/uL Immature Gran # (Auto) 0.11 H (0.00-0.02) K/uL Absolute Nucleated RBC 0.06 H (0-0) K/uL Nucleated RBC % (auto) 0.2 % Polychromasia 1+ Hypochromasia Present Poikilocytosis Anisocytosis Present Microcytosis PT (9.0-12.0) Seconds INR (0.9-1.1) APTT (21.0-31.0) Seconds PTT Ratio POC pH 7.42 (7.35-7.45) POC pCO2 36 (35-46) mmHg POC pO2 70 L (80-95) mmHg POC HCO3 23 (19-24) quinn/L POC Total CO2 24 (24-31) mmol/L POC Base Excess -2.0 (-9-1.8) quinn/L ABG pH (7.35-7.45) ABG pCO2 (35-46) mmHg ABG pO2 (80-95) mmHg ABG HCO3 (19-24) mmol/L POC ABG O2 Sat 94.0 (90-95) % ABG O2 Saturation (90-95) % ABG Base Excess (-9-1.8) mEq/L Caesar Test (Pos) VBG pH (7.36-7.41) VBG pCO2 (38-50) mmHg VBG pO2 mmHg VBG HCO3 mmol/L VBG O2 Saturation % VBG Base Excess mEq/L Barometric Pressure mm/Hg Oxygen Given Sodium (136-145) mmol/L Potassium (3.5-5.1) mmol/L Chloride (98-107) mmol/L Carbon Dioxide (21-32) mmol/L Anion Gap (3-11) BUN (7-18) mg/dl Creatinine (0.6-1.2) mg/dl Est Cr Clr Drug Dosing ml/min Est GFR ( Amer) ml/min Est GFR (Non-Af Amer) ml/min BUN/Creatinine Ratio (10-20) Glucose (70-99) mg/dl POC Glucose 174 H (70-99) mg/dl POC Glucose (other) (70-99) mg/dl Estimat Average Glucose mg/dl Hemoglobin A1c (4.5-5.6) % Lactate (0.4-2.0) mmol/L Calcium (8.5-10.1) mg/dl Phosphorus (2.5-4.9) mg/dl Magnesium (1.8-2.4) mg/dl Total Bilirubin (0.2-1) mg/dl Direct Bilirubin (0-0.2) mg/dl AST (15-37) U/L ALT (12-78) U/L Alkaline Phosphatase (45-117) U/L Troponin I (0-0.045) ng/ml NT-Pro-B Natriuret Pep (0-450) pg/ml Total Protein (6.4-8.2) gm/dl Albumin (3.4-5.0) gm/dl Globulin (2.5-4.0) gm/dl Albumin/Globulin Ratio (0.9-2) HCG, Qual (Negative) Nasal Screen MRSA (PCR) (Negative) Urine Opiates Screen (Neg) Ur Methadone, Qual (Neg) Urine Barbiturates (Neg) Ur Phencyclidine (PCP) (Neg) U Amphetamin/Meth Scrn (Neg) MDMA (Ecstasy) Screen (Neg) U Benzodiazepines Scrn (Neg) Ur Cocaine Metabolite (Neg) U Marijuana (THC) Screen (Neg) COVID-19 Eval Order SARS-CoV-2 (PCR) (Negative) Urine Legionella Ag 09/19/20 09/18/20 09/18/20 Range/Units 00:09 Unknown 20:47 WBC (4.8-10.8) K/uL RBC (4.2-5.4) M/uL Hgb (12.0-16.0) g/dL Hct (37-47) % MCV (80-100) fL MCH (25-34) pg MCHC (32-36) g/dL RDW Std Deviation (36.4-46.3) fL RDW Coeff of Hannah (11.5-14.5) % Plt Count (130-400) K/uL MPV (7.4-10.4) fL Immature Gran % (Auto) % Neut % (Auto) % Lymph % (Auto) % [place] % (Auto) % Eos % (Auto) % Baso % (Auto) % Neut # (Auto) (1.4-6.5) K/uL Lymph # (Auto) (1.2-3.4) K/uL [place] # (Auto) (0.11-0.59) K/uL Eos # (Auto) (0-0.5) K/uL Baso # (Auto) (0-0.2) K/uL Immature Gran # (Auto) (0.00-0.02) K/uL Absolute Nucleated RBC (0-0) K/uL Nucleated RBC % (auto) % Polychromasia Hypochromasia Poikilocytosis Anisocytosis Microcytosis PT (9.0-12.0) Seconds INR (0.9-1.1) APTT (21.0-31.0) Seconds PTT Ratio POC pH (7.35-7.45) POC pCO2 (35-46) mmHg POC pO2 (80-95) mmHg POC HCO3 (19-24) quinn/L POC Total CO2 (24-31) mmol/L POC Base Excess (-9-1.8) quinn/L ABG pH (7.35-7.45) ABG pCO2 (35-46) mmHg ABG pO2 (80-95) mmHg ABG HCO3 (19-24) mmol/L POC ABG O2 Sat (90-95) % ABG O2 Saturation (90-95) % ABG Base Excess (-9-1.8) mEq/L Caesar Test (Pos) VBG pH (7.36-7.41) VBG pCO2 (38-50) mmHg VBG pO2 mmHg VBG HCO3 mmol/L VBG O2 Saturation % VBG Base Excess mEq/L Barometric Pressure mm/Hg Oxygen Given Sodium (136-145) mmol/L Potassium (3.5-5.1) mmol/L Chloride (98-107) mmol/L Carbon Dioxide (21-32) mmol/L Anion Gap (3-11) BUN (7-18) mg/dl Creatinine (0.6-1.2) mg/dl Est Cr Clr Drug Dosing ml/min Est GFR ( Amer) ml/min Est GFR (Non-Af Amer) ml/min BUN/Creatinine Ratio (10-20) Glucose (70-99) mg/dl POC Glucose 127 H 236 H (70-99) mg/dl POC Glucose (other) (70-99) mg/dl Estimat Average Glucose mg/dl Hemoglobin A1c (4.5-5.6) % Lactate (0.4-2.0) mmol/L Calcium (8.5-10.1) mg/dl Phosphorus (2.5-4.9) mg/dl Magnesium (1.8-2.4) mg/dl Total Bilirubin (0.2-1) mg/dl Direct Bilirubin (0-0.2) mg/dl AST (15-37) U/L ALT (12-78) U/L Alkaline Phosphatase (45-117) U/L Troponin I (0-0.045) ng/ml NT-Pro-B Natriuret Pep (0-450) pg/ml Total Protein (6.4-8.2) gm/dl Albumin (3.4-5.0) gm/dl Globulin (2.5-4.0) gm/dl Albumin/Globulin Ratio (0.9-2) HCG, Qual (Negative) Nasal Screen MRSA (PCR) Cancelled (Negative) Urine Opiates Screen (Neg) Ur Methadone, Qual (Neg) Urine Barbiturates (Neg) Ur Phencyclidine (PCP) (Neg) U Amphetamin/Meth Scrn (Neg) MDMA (Ecstasy) Screen (Neg) U Benzodiazepines Scrn (Neg) Ur Cocaine Metabolite (Neg) U Marijuana (THC) Screen (Neg) COVID-19 Eval Order SARS-CoV-2 (PCR) (Negative) Urine Legionella Ag 09/18/20 09/18/20 09/18/20 Range/Units 18:53 18:53 18:23 WBC (4.8-10.8) K/uL RBC (4.2-5.4) M/uL Hgb (12.0-16.0) g/dL Hct (37-47) % MCV (80-100) fL MCH (25-34) pg MCHC (32-36) g/dL RDW Std Deviation (36.4-46.3) fL RDW Coeff of Hannah (11.5-14.5) % Plt Count (130-400) K/uL MPV (7.4-10.4) fL Immature Gran % (Auto) % Neut % (Auto) % Lymph % (Auto) % [place] % (Auto) % Eos % (Auto) % Baso % (Auto) % Neut # (Auto) (1.4-6.5) K/uL Lymph # (Auto) (1.2-3.4) K/uL [place] # (Auto) (0.11-0.59) K/uL Eos # (Auto) (0-0.5) K/uL Baso # (Auto) (0-0.2) K/uL Immature Gran # (Auto) (0.00-0.02) K/uL Absolute Nucleated RBC (0-0) K/uL Nucleated RBC % (auto) % Polychromasia Hypochromasia Poikilocytosis Anisocytosis Microcytosis PT (9.0-12.0) Seconds INR (0.9-1.1) APTT (21.0-31.0) Seconds PTT Ratio POC pH (7.35-7.45) POC pCO2 (35-46) mmHg POC pO2 (80-95) mmHg POC HCO3 (19-24) quinn/L POC Total CO2 (24-31) mmol/L POC Base Excess (-9-1.8) quinn/L ABG pH (7.35-7.45) ABG pCO2 (35-46) mmHg ABG pO2 (80-95) mmHg ABG HCO3 (19-24) mmol/L POC ABG O2 Sat (90-95) % ABG O2 Saturation (90-95) % ABG Base Excess (-9-1.8) mEq/L Caesar Test (Pos) VBG pH (7.36-7.41) VBG pCO2 (38-50) mmHg VBG pO2 mmHg VBG HCO3 mmol/L VBG O2 Saturation % VBG Base Excess mEq/L Barometric Pressure mm/Hg Oxygen Given Sodium (136-145) mmol/L Potassium (3.5-5.1) mmol/L Chloride (98-107) mmol/L Carbon Dioxide (21-32) mmol/L Anion Gap (3-11) BUN (7-18) mg/dl Creatinine (0.6-1.2) mg/dl Est Cr Clr Drug Dosing ml/min Est GFR ( Amer) ml/min Est GFR (Non-Af Amer) ml/min BUN/Creatinine Ratio (10-20) Glucose (70-99) mg/dl POC Glucose (70-99) mg/dl POC Glucose (other) 259 H (70-99) mg/dl Estimat Average Glucose mg/dl Hemoglobin A1c (4.5-5.6) % Lactate 1.9 (0.4-2.0) mmol/L Calcium (8.5-10.1) mg/dl Phosphorus (2.5-4.9) mg/dl Magnesium (1.8-2.4) mg/dl Total Bilirubin (0.2-1) mg/dl Direct Bilirubin (0-0.2) mg/dl AST (15-37) U/L ALT (12-78) U/L Alkaline Phosphatase (45-117) U/L Troponin I 0.397 H* (0-0.045) ng/ml NT-Pro-B Natriuret Pep (0-450) pg/ml Total Protein (6.4-8.2) gm/dl Albumin (3.4-5.0) gm/dl Globulin (2.5-4.0) gm/dl Albumin/Globulin Ratio (0.9-2) HCG, Qual (Negative) Nasal Screen MRSA (PCR) (Negative) Urine Opiates Screen (Neg) Ur Methadone, Qual (Neg) Urine Barbiturates (Neg) Ur Phencyclidine (PCP) (Neg) U Amphetamin/Meth Scrn (Neg) MDMA (Ecstasy) Screen (Neg) U Benzodiazepines Scrn (Neg) Ur Cocaine Metabolite (Neg) U Marijuana (THC) Screen (Neg) COVID-19 Eval Order SARS-CoV-2 (PCR) (Negative) Urine Legionella Ag 09/18/20 09/18/20 09/18/20 Range/Units 18:19 18:19 18:16 WBC (4.8-10.8) K/uL RBC (4.2-5.4) M/uL Hgb (12.0-16.0) g/dL Hct (37-47) % MCV (80-100) fL MCH (25-34) pg MCHC (32-36) g/dL RDW Std Deviation (36.4-46.3) fL RDW Coeff of Hannah (11.5-14.5) % Plt Count (130-400) K/uL MPV (7.4-10.4) fL Immature Gran % (Auto) % Neut % (Auto) % Lymph % (Auto) % [place] % (Auto) % Eos % (Auto) % Baso % (Auto) % Neut # (Auto) (1.4-6.5) K/uL Lymph # (Auto) (1.2-3.4) K/uL [place] # (Auto) (0.11-0.59) K/uL Eos # (Auto) (0-0.5) K/uL Baso # (Auto) (0-0.2) K/uL Immature Gran # (Auto) (0.00-0.02) K/uL Absolute Nucleated RBC (0-0) K/uL Nucleated RBC % (auto) % Polychromasia Hypochromasia Poikilocytosis Anisocytosis Microcytosis PT (9.0-12.0) Seconds INR (0.9-1.1) APTT (21.0-31.0) Seconds PTT Ratio POC pH 7.39 (7.35-7.45) POC pCO2 37 (35-46) mmHg POC pO2 70 L (80-95) mmHg POC HCO3 23 (19-24) quinn/L POC Total CO2 24 (24-31) mmol/L POC Base Excess -2.0 (-9-1.8) quinn/L ABG pH (7.35-7.45) ABG pCO2 (35-46) mmHg ABG pO2 (80-95) mmHg ABG HCO3 (19-24) mmol/L POC ABG O2 Sat 94.0 (90-95) % ABG O2 Saturation (90-95) % ABG Base Excess (-9-1.8) mEq/L Caesar Test (Pos) VBG pH (7.36-7.41) VBG pCO2 (38-50) mmHg VBG pO2 mmHg VBG HCO3 mmol/L VBG O2 Saturation % VBG Base Excess mEq/L Barometric Pressure mm/Hg Oxygen Given Sodium (136-145) mmol/L Potassium (3.5-5.1) mmol/L Chloride (98-107) mmol/L Carbon Dioxide (21-32) mmol/L Anion Gap (3-11) BUN (7-18) mg/dl Creatinine (0.6-1.2) mg/dl Est Cr Clr Drug Dosing ml/min Est GFR ( Amer) ml/min Est GFR (Non-Af Amer) ml/min BUN/Creatinine Ratio (10-20) Glucose (70-99) mg/dl POC Glucose (70-99) mg/dl POC Glucose (other) (70-99) mg/dl Estimat Average Glucose mg/dl Hemoglobin A1c (4.5-5.6) % Lactate Cancelled (0.4-2.0) mmol/L Calcium (8.5-10.1) mg/dl Phosphorus (2.5-4.9) mg/dl Magnesium (1.8-2.4) mg/dl Total Bilirubin (0.2-1) mg/dl Direct Bilirubin (0-0.2) mg/dl AST (15-37) U/L ALT (12-78) U/L Alkaline Phosphatase (45-117) U/L Troponin I Cancelled (0-0.045) ng/ml NT-Pro-B Natriuret Pep (0-450) pg/ml Total Protein (6.4-8.2) gm/dl Albumin (3.4-5.0) gm/dl Globulin (2.5-4.0) gm/dl Albumin/Globulin Ratio (0.9-2) HCG, Qual (Negative) Nasal Screen MRSA (PCR) (Negative) Urine Opiates Screen (Neg) Ur Methadone, Qual (Neg) Urine Barbiturates (Neg) Ur Phencyclidine (PCP) (Neg) U Amphetamin/Meth Scrn (Neg) MDMA (Ecstasy) Screen (Neg) U Benzodiazepines Scrn (Neg) Ur Cocaine Metabolite (Neg) U Marijuana (THC) Screen (Neg) COVID-19 Eval Order SARS-CoV-2 (PCR) (Negative) Urine Legionella Ag 09/18/20 09/18/20 09/18/20 Range/Units 15:28 15:25 13:57 WBC (4.8-10.8) K/uL RBC (4.2-5.4) M/uL Hgb (12.0-16.0) g/dL Hct (37-47) % MCV (80-100) fL MCH (25-34) pg MCHC (32-36) g/dL RDW Std Deviation (36.4-46.3) fL RDW Coeff of Hannah (11.5-14.5) % Plt Count (130-400) K/uL MPV (7.4-10.4) fL Immature Gran % (Auto) % Neut % (Auto) % Lymph % (Auto) % [place] % (Auto) % Eos % (Auto) % Baso % (Auto) % Neut # (Auto) (1.4-6.5) K/uL Lymph # (Auto) (1.2-3.4) K/uL [place] # (Auto) (0.11-0.59) K/uL Eos # (Auto) (0-0.5) K/uL Baso # (Auto) (0-0.2) K/uL Immature Gran # (Auto) (0.00-0.02) K/uL Absolute Nucleated RBC (0-0) K/uL Nucleated RBC % (auto) % Polychromasia Hypochromasia Poikilocytosis Anisocytosis Microcytosis PT (9.0-12.0) Seconds INR (0.9-1.1) APTT (21.0-31.0) Seconds PTT Ratio POC pH (7.35-7.45) POC pCO2 (35-46) mmHg POC pO2 (80-95) mmHg POC HCO3 (19-24) quinn/L POC Total CO2 (24-31) mmol/L POC Base Excess (-9-1.8) quinn/L ABG pH (7.35-7.45) ABG pCO2 (35-46) mmHg ABG pO2 (80-95) mmHg ABG HCO3 (19-24) mmol/L POC ABG O2 Sat (90-95) % ABG O2 Saturation (90-95) % ABG Base Excess (-9-1.8) mEq/L Caesar Test (Pos) VBG pH (7.36-7.41) VBG pCO2 (38-50) mmHg VBG pO2 mmHg VBG HCO3 mmol/L VBG O2 Saturation % VBG Base Excess mEq/L Barometric Pressure mm/Hg Oxygen Given Sodium (136-145) mmol/L Potassium (3.5-5.1) mmol/L Chloride (98-107) mmol/L Carbon Dioxide (21-32) mmol/L Anion Gap (3-11) BUN (7-18) mg/dl Creatinine (0.6-1.2) mg/dl Est Cr Clr Drug Dosing ml/min Est GFR ( Amer) ml/min Est GFR (Non-Af Amer) ml/min BUN/Creatinine Ratio (10-20) Glucose (70-99) mg/dl POC Glucose 286 H (70-99) mg/dl POC Glucose (other) (70-99) mg/dl Estimat Average Glucose mg/dl Hemoglobin A1c (4.5-5.6) % Lactate 3.1 H* (0.4-2.0) mmol/L Calcium (8.5-10.1) mg/dl Phosphorus (2.5-4.9) mg/dl Magnesium (1.8-2.4) mg/dl Total Bilirubin (0.2-1) mg/dl Direct Bilirubin (0-0.2) mg/dl AST (15-37) U/L ALT (12-78) U/L Alkaline Phosphatase (45-117) U/L Troponin I (0-0.045) ng/ml NT-Pro-B Natriuret Pep (0-450) pg/ml Total Protein (6.4-8.2) gm/dl Albumin (3.4-5.0) gm/dl Globulin (2.5-4.0) gm/dl Albumin/Globulin Ratio (0.9-2) HCG, Qual (Negative) Nasal Screen MRSA (PCR) Negative (Negative) Urine Opiates Screen (Neg) Ur Methadone, Qual (Neg) Urine Barbiturates (Neg) Ur Phencyclidine (PCP) (Neg) U Amphetamin/Meth Scrn (Neg) MDMA (Ecstasy) Screen (Neg) U Benzodiazepines Scrn (Neg) Ur Cocaine Metabolite (Neg) U Marijuana (THC) Screen (Neg) COVID-19 Eval Order SARS-CoV-2 (PCR) (Negative) Urine Legionella Ag 09/18/20 09/18/20 09/18/20 Range/Units 12:15 12:00 12:00 WBC (4.8-10.8) K/uL RBC (4.2-5.4) M/uL Hgb (12.0-16.0) g/dL Hct (37-47) % MCV (80-100) fL MCH (25-34) pg MCHC (32-36) g/dL RDW Std Deviation (36.4-46.3) fL RDW Coeff of Hannah (11.5-14.5) % Plt Count (130-400) K/uL MPV (7.4-10.4) fL Immature Gran % (Auto) % Neut % (Auto) % Lymph % (Auto) % [place] % (Auto) % Eos % (Auto) % Baso % (Auto) % Neut # (Auto) (1.4-6.5) K/uL Lymph # (Auto) (1.2-3.4) K/uL [place] # (Auto) (0.11-0.59) K/uL Eos # (Auto) (0-0.5) K/uL Baso # (Auto) (0-0.2) K/uL Immature Gran # (Auto) (0.00-0.02) K/uL Absolute Nucleated RBC (0-0) K/uL Nucleated RBC % (auto) % Polychromasia Hypochromasia Poikilocytosis Anisocytosis Microcytosis PT (9.0-12.0) Seconds INR (0.9-1.1) APTT (21.0-31.0) Seconds PTT Ratio POC pH (7.35-7.45) POC pCO2 (35-46) mmHg POC pO2 (80-95) mmHg POC HCO3 (19-24) quinn/L POC Total CO2 (24-31) mmol/L POC Base Excess (-9-1.8) quinn/L ABG pH 7.13 L* (7.35-7.45) ABG pCO2 60 H (35-46) mmHg ABG pO2 71 L (80-95) mmHg ABG HCO3 20 (19-24) mmol/L POC ABG O2 Sat (90-95) % ABG O2 Saturation 87.0 L (90-95) % ABG Base Excess -9.7 L (-9-1.8) mEq/L Caesar Test Pos (Pos) VBG pH (7.36-7.41) VBG pCO2 (38-50) mmHg VBG pO2 mmHg VBG HCO3 mmol/L VBG O2 Saturation % VBG Base Excess mEq/L Barometric Pressure 731.9 mm/Hg Oxygen Given 100% Sodium (136-145) mmol/L Potassium (3.5-5.1) mmol/L Chloride (98-107) mmol/L Carbon Dioxide (21-32) mmol/L Anion Gap (3-11) BUN (7-18) mg/dl Creatinine (0.6-1.2) mg/dl Est Cr Clr Drug Dosing ml/min Est GFR ( Amer) ml/min Est GFR (Non-Af Amer) ml/min BUN/Creatinine Ratio (10-20) Glucose (70-99) mg/dl POC Glucose (70-99) mg/dl POC Glucose (other) (70-99) mg/dl Estimat Average Glucose mg/dl Hemoglobin A1c (4.5-5.6) % Lactate (0.4-2.0) mmol/L Calcium (8.5-10.1) mg/dl Phosphorus (2.5-4.9) mg/dl Magnesium (1.8-2.4) mg/dl Total Bilirubin (0.2-1) mg/dl Direct Bilirubin (0-0.2) mg/dl AST (15-37) U/L ALT (12-78) U/L Alkaline Phosphatase (45-117) U/L Troponin I (0-0.045) ng/ml NT-Pro-B Natriuret Pep (0-450) pg/ml Total Protein (6.4-8.2) gm/dl Albumin (3.4-5.0) gm/dl Globulin (2.5-4.0) gm/dl Albumin/Globulin Ratio (0.9-2) HCG, Qual (Negative) Nasal Screen MRSA (PCR) (Negative) Urine Opiates Screen Neg (Neg) Ur Methadone, Qual Neg (Neg) Urine Barbiturates Neg (Neg) Ur Phencyclidine (PCP) Neg (Neg) U Amphetamin/Meth Scrn Neg (Neg) MDMA (Ecstasy) Screen Neg (Neg) U Benzodiazepines Scrn Neg (Neg) Ur Cocaine Metabolite Neg (Neg) U Marijuana (THC) Screen Neg (Neg) COVID-19 Eval Order SARS-CoV-2 (PCR) (Negative) Urine Legionella Ag Pending 09/18/20 09/18/20 09/18/20 Range/Units 11:50 11:50 11:36 WBC (4.8-10.8) K/uL RBC (4.2-5.4) M/uL Hgb (12.0-16.0) g/dL Hct (37-47) % MCV (80-100) fL MCH (25-34) pg MCHC (32-36) g/dL RDW Std Deviation (36.4-46.3) fL RDW Coeff of Hannah (11.5-14.5) % Plt Count (130-400) K/uL MPV (7.4-10.4) fL Immature Gran % (Auto) % Neut % (Auto) % Lymph % (Auto) % [place] % (Auto) % Eos % (Auto) % Baso % (Auto) % Neut # (Auto) (1.4-6.5) K/uL Lymph # (Auto) (1.2-3.4) K/uL [place] # (Auto) (0.11-0.59) K/uL Eos # (Auto) (0-0.5) K/uL Baso # (Auto) (0-0.2) K/uL Immature Gran # (Auto) (0.00-0.02) K/uL Absolute Nucleated RBC (0-0) K/uL Nucleated RBC % (auto) % Polychromasia Hypochromasia Poikilocytosis Anisocytosis Microcytosis PT (9.0-12.0) Seconds INR (0.9-1.1) APTT (21.0-31.0) Seconds PTT Ratio POC pH (7.35-7.45) POC pCO2 (35-46) mmHg POC pO2 (80-95) mmHg POC HCO3 (19-24) quinn/L POC Total CO2 (24-31) mmol/L POC Base Excess (-9-1.8) quinn/L ABG pH (7.35-7.45) ABG pCO2 (35-46) mmHg ABG pO2 (80-95) mmHg ABG HCO3 (19-24) mmol/L POC ABG O2 Sat (90-95) % ABG O2 Saturation (90-95) % ABG Base Excess (-9-1.8) mEq/L Caesar Test (Pos) VBG pH (7.36-7.41) VBG pCO2 (38-50) mmHg VBG pO2 mmHg VBG HCO3 mmol/L VBG O2 Saturation % VBG Base Excess mEq/L Barometric Pressure mm/Hg Oxygen Given Sodium (136-145) mmol/L Potassium (3.5-5.1) mmol/L Chloride (98-107) mmol/L Carbon Dioxide (21-32) mmol/L Anion Gap (3-11) BUN (7-18) mg/dl Creatinine (0.6-1.2) mg/dl Est Cr Clr Drug Dosing ml/min Est GFR ( Amer) ml/min Est GFR (Non-Af Amer) ml/min BUN/Creatinine Ratio (10-20) Glucose (70-99) mg/dl POC Glucose (70-99) mg/dl POC Glucose (other) (70-99) mg/dl Estimat Average Glucose mg/dl Hemoglobin A1c (4.5-5.6) % Lactate 6.5 H* (0.4-2.0) mmol/L Calcium (8.5-10.1) mg/dl Phosphorus (2.5-4.9) mg/dl Magnesium (1.8-2.4) mg/dl Total Bilirubin (0.2-1) mg/dl Direct Bilirubin (0-0.2) mg/dl AST (15-37) U/L ALT (12-78) U/L Alkaline Phosphatase (45-117) U/L Troponin I (0-0.045) ng/ml NT-Pro-B Natriuret Pep (0-450) pg/ml Total Protein (6.4-8.2) gm/dl Albumin (3.4-5.0) gm/dl Globulin (2.5-4.0) gm/dl Albumin/Globulin Ratio (0.9-2) HCG, Qual (Negative) Nasal Screen MRSA (PCR) (Negative) Urine Opiates Screen (Neg) Ur Methadone, Qual (Neg) Urine Barbiturates (Neg) Ur Phencyclidine (PCP) (Neg) U Amphetamin/Meth Scrn (Neg) MDMA (Ecstasy) Screen (Neg) U Benzodiazepines Scrn (Neg) Ur Cocaine Metabolite (Neg) U Marijuana (THC) Screen (Neg) COVID-19 Eval Order Covid19 at [facility] SARS-CoV-2 (PCR) NEGATIVE (Negative) Urine Legionella Ag 09/18/20 09/18/20 09/18/20 Range/Units 11:35 11:35 11:34 WBC 48.95 H* (4.8-10.8) K/uL RBC 4.33 (4.2-5.4) M/uL Hgb 10.0 L (12.0-16.0) g/dL Hct 33.1 L (37-47) % MCV 76.4 L (80-100) fL MCH 23.1 L (25-34) pg MCHC 30.2 L (32-36) g/dL RDW Std Deviation 55.0 H (36.4-46.3) fL RDW Coeff of Hannah 21.2 H (11.5-14.5) % Plt Count 538 H (130-400) K/uL MPV 10.2 (7.4-10.4) fL Immature Gran % (Auto) 1.0 % Neut % (Auto) 82.9 % Lymph % (Auto) 10.6 % [place] % (Auto) 5.2 % Eos % (Auto) 0.1 % Baso % (Auto) 0.2 % Neut # (Auto) 40.55 H (1.4-6.5) K/uL Lymph # (Auto) 5.18 H (1.2-3.4) K/uL [place] # (Auto) 2.56 H (0.11-0.59) K/uL Eos # (Auto) 0.05 (0-0.5) K/uL Baso # (Auto) 0.10 (0-0.2) K/uL Immature Gran # (Auto) 0.51 H (0.00-0.02) K/uL Absolute Nucleated RBC 0.17 H (0-0) K/uL Nucleated RBC % (auto) 0.4 % Polychromasia Hypochromasia Poikilocytosis Present Anisocytosis Present Microcytosis Present PT (9.0-12.0) Seconds INR (0.9-1.1) APTT (21.0-31.0) Seconds PTT Ratio POC pH (7.35-7.45) POC pCO2 (35-46) mmHg POC pO2 (80-95) mmHg POC HCO3 (19-24) quinn/L POC Total CO2 (24-31) mmol/L POC Base Excess (-9-1.8) quinn/L ABG pH (7.35-7.45) ABG pCO2 (35-46) mmHg ABG pO2 (80-95) mmHg ABG HCO3 (19-24) mmol/L POC ABG O2 Sat (90-95) % ABG O2 Saturation (90-95) % ABG Base Excess (-9-1.8) mEq/L Caesar Test (Pos) VBG pH 7.12 L (7.36-7.41) VBG pCO2 56 H (38-50) mmHg VBG pO2 51 mmHg VBG HCO3 18 mmol/L VBG O2 Saturation 73.0 % VBG Base Excess -11.1 mEq/L Barometric Pressure 732.0 mm/Hg Oxygen Given Sodium (136-145) mmol/L Potassium (3.5-5.1) mmol/L Chloride (98-107) mmol/L Carbon Dioxide (21-32) mmol/L Anion Gap (3-11) BUN (7-18) mg/dl Creatinine (0.6-1.2) mg/dl Est Cr Clr Drug Dosing ml/min Est GFR ( Amer) ml/min Est GFR (Non-Af Amer) ml/min BUN/Creatinine Ratio (10-20) Glucose (70-99) mg/dl POC Glucose (70-99) mg/dl POC Glucose (other) (70-99) mg/dl Estimat Average Glucose mg/dl Hemoglobin A1c (4.5-5.6) % Lactate (0.4-2.0) mmol/L Calcium (8.5-10.1) mg/dl Phosphorus (2.5-4.9) mg/dl Magnesium (1.8-2.4) mg/dl Total Bilirubin (0.2-1) mg/dl Direct Bilirubin (0-0.2) mg/dl AST (15-37) U/L ALT (12-78) U/L Alkaline Phosphatase (45-117) U/L Troponin I (0-0.045) ng/ml NT-Pro-B Natriuret Pep (0-450) pg/ml Total Protein (6.4-8.2) gm/dl Albumin (3.4-5.0) gm/dl Globulin (2.5-4.0) gm/dl Albumin/Globulin Ratio (0.9-2) HCG, Qual Negative (Negative) Nasal Screen MRSA (PCR) (Negative) Urine Opiates Screen (Neg) Ur Methadone, Qual (Neg) Urine Barbiturates (Neg) Ur Phencyclidine (PCP) (Neg) U Amphetamin/Meth Scrn (Neg) MDMA (Ecstasy) Screen (Neg) U Benzodiazepines Scrn (Neg) Ur Cocaine Metabolite (Neg) U Marijuana (THC) Screen (Neg) COVID-19 Eval Order SARS-CoV-2 (PCR) (Negative) Urine Legionella Ag 09/18/20 09/18/20 Range/Units 11:34 11:34 WBC (4.8-10.8) K/uL RBC (4.2-5.4) M/uL Hgb (12.0-16.0) g/dL Hct (37-47) % MCV (80-100) fL MCH (25-34) pg MCHC (32-36) g/dL RDW Std Deviation (36.4-46.3) fL RDW Coeff of Hannah (11.5-14.5) % Plt Count (130-400) K/uL MPV (7.4-10.4) fL Immature Gran % (Auto) % Neut % (Auto) % Lymph % (Auto) % [place] % (Auto) % Eos % (Auto) % Baso % (Auto) % Neut # (Auto) (1.4-6.5) K/uL Lymph # (Auto) (1.2-3.4) K/uL [place] # (Auto) (0.11-0.59) K/uL Eos # (Auto) (0-0.5) K/uL Baso # (Auto) (0-0.2) K/uL Immature Gran # (Auto) (0.00-0.02) K/uL Absolute Nucleated RBC (0-0) K/uL Nucleated RBC % (auto) % Polychromasia Hypochromasia Poikilocytosis Anisocytosis Microcytosis PT 12.0 (9.0-12.0) Seconds INR 1.2 H (0.9-1.1) APTT 25.9 (21.0-31.0) Seconds PTT Ratio 1.0 POC pH (7.35-7.45) POC pCO2 (35-46) mmHg POC pO2 (80-95) mmHg POC HCO3 (19-24) quinn/L POC Total CO2 (24-31) mmol/L POC Base Excess (-9-1.8) quinn/L ABG pH (7.35-7.45) ABG pCO2 (35-46) mmHg ABG pO2 (80-95) mmHg ABG HCO3 (19-24) mmol/L POC ABG O2 Sat (90-95) % ABG O2 Saturation (90-95) % ABG Base Excess (-9-1.8) mEq/L Caesar Test (Pos) VBG pH (7.36-7.41) VBG pCO2 (38-50) mmHg VBG pO2 mmHg VBG HCO3 mmol/L VBG O2 Saturation % VBG Base Excess mEq/L Barometric Pressure mm/Hg Oxygen Given Sodium 140 (136-145) mmol/L Potassium 4.2 (3.5-5.1) mmol/L Chloride 108 H (98-107) mmol/L Carbon Dioxide 19 L (21-32) mmol/L Anion Gap 13.0 H (3-11) BUN 10 (7-18) mg/dl Creatinine 1.07 (0.6-1.2) mg/dl Est Cr Clr Drug Dosing 74.3 ml/min Est GFR ( Amer) 74.2 ml/min Est GFR (Non-Af Amer) 64.0 ml/min BUN/Creatinine Ratio 9.4 L (10-20) Glucose 272 H (70-99) mg/dl POC Glucose (70-99) mg/dl POC Glucose (other) (70-99) mg/dl Estimat Average Glucose mg/dl Hemoglobin A1c (4.5-5.6) % Lactate (0.4-2.0) mmol/L Calcium 8.8 (8.5-10.1) mg/dl Phosphorus (2.5-4.9) mg/dl Magnesium 1.9 (1.8-2.4) mg/dl Total Bilirubin 0.9 (0.2-1) mg/dl Direct Bilirubin (0-0.2) mg/dl AST 32 (15-37) U/L ALT 19 (12-78) U/L Alkaline Phosphatase 79 (45-117) U/L Troponin I 0.264 H* (0-0.045) ng/ml NT-Pro-B Natriuret Pep 3498 H (0-450) pg/ml Total Protein 7.7 (6.4-8.2) gm/dl Albumin 3.3 L (3.4-5.0) gm/dl Globulin 4.4 H (2.5-4.0) gm/dl Albumin/Globulin Ratio 0.7 L (0.9-2) HCG, Qual (Negative) Nasal Screen MRSA (PCR) (Negative) Urine Opiates Screen (Neg) Ur Methadone, Qual (Neg) Urine Barbiturates (Neg) Ur Phencyclidine (PCP) (Neg) U Amphetamin/Meth Scrn (Neg) MDMA (Ecstasy) Screen (Neg) U Benzodiazepines Scrn (Neg) Ur Cocaine Metabolite (Neg) U Marijuana (THC) Screen (Neg) COVID-19 Eval Order SARS-CoV-2 (PCR) (Negative) Urine Legionella Ag Coding Level of Care Code Critical Care 1st 30-74 mins Diagnoses Hypoxia R09.02 Acute CHF (congestive heart failure) I50.9 Acute on chronic heart failure with preserved ejection fraction (HFpEF) I50.33 Acute hypoxemic respiratory failure J96.01 Pulmonary edema cardiac cause I50.1 Lactic acidosis E87.2
[2020-09-19 07:34] LABS: Estimated Average Glucose 154 mg/dl
[2020-09-19] MEDS: INSULIN GLARGINE SOLOSTAR 100 UNITS/ML 3 ML PEN SC SCH (07:57)
[2020-09-19] MEDS: FAMOTIDINE 20 MG in SYRINGE 3 ML IV SCH ×2 (08:11→20:11)
[2020-09-19] MEDS: ATORVASTATIN 40 MG TAB NG SCH (08:11)
[2020-09-19] MEDS: CLOPIDOGREL BISULFATE 75 MG TAB PEG SCH (08:11)
[2020-09-19] MEDS: HEPARIN SOD 5,000 UNIT/0.5 ML VIAL SQ SCH (08:11)
[2020-09-19] MEDS: ASPIRIN 81 MG CHEW NG SCH (08:11)
--- NOTE | 2020-09-19 09:12 | XRay Report ---
XR chest 1V portable HISTORY: Respiratory failure. COMPARISON: Chest 09/18/2020. FINDINGS: Endotracheal tube terminates approximately 1.6 cm from the misti. Nasogastric tube termina andrea below the diaphragm, likely within the stomach. The heart remains mildly enlarged. Bilateral airs pace opacities are stable to slightly improved. No pneumothorax. Suspect trace bilateral pleural effu sions. IMPRESSION: 1. The endotracheal tube terminates approximately 1.6 cm from the misti. This is similar to the prio r study. 2. Nasogastric tube terminates below the diaphragm. 3. Near diffuse bilateral airspace opacities have slightly improved. ACT 112: Negative or not required by law. Electronically signed by: Arnol Kenney M.D. 09/19/2020 9:10 AM
--- NOTE | 2020-09-19 09:52 | Pre Anesthesia Assessment ---
Date of Service September 19, 2020 Pre Sedation Assessment Vital Signs Temp Pulse Pulse Resp BP BP Pulse Ox 09/19/20 08:46 28 H 09/19/20 07:33 33 H 09/19/20 06:30 37.5 C 86 93/52 L 98 09/19/20 06:15 37.5 C 85 90/52 L 98 09/19/20 06:01 37.5 C 85 98 09/19/20 06:00 37.5 C 85 91/53 L 98 09/19/20 05:45 37.4 C 85 91/54 L 99 09/19/20 05:30 37.4 C 87 91/52 L 99 09/19/20 05:15 37.6 C H 91 H 91/56 L 100 09/19/20 05:00 37.6 C H 94 H 09/19/20 04:45 37.7 C H 93 H 106/59 L 93 09/19/20 04:33 94 H 37 H 93 09/19/20 04:00 37.7 C H 94 H 102/64 94 09/19/20 03:45 37.7 C H 93 H 104/52 L 93 09/19/20 03:30 37.7 C H 94 H 92/63 L 94 09/19/20 03:15 37.7 C H 96 H 101/58 L 93 09/19/20 02:45 37.7 C H 96 H 96/58 L 93 09/19/20 02:30 37.7 C H 95 H 97/58 L 91 09/19/20 02:15 37.7 C H 97 H 92/51 L 92 09/19/20 02:08 97 H 36 H 94 09/19/20 02:00 37.8 C H 96 H 96/59 L 95 09/19/20 01:45 37.8 C H 98 H 102/56 L 94 09/19/20 01:00 37.8 C H 97 H 92/58 L 95 09/19/20 00:32 37.7 C H 97 H 89/46 L 96 09/19/20 00:15 37.7 C H 101 H 98/60 L 99 09/19/20 00:00 37.7 C H 101 H 91/60 L 94 09/18/20 23:55 101 H 09/18/20 23:45 37.6 C H 101 H 96/63 L 94 09/18/20 23:30 37.6 C H 101 H 93/58 L 94 09/18/20 23:15 37.6 C H 102 H 91/59 L 94 09/18/20 23:00 101 H 100/57 L 94 09/18/20 22:45 37.5 C 102 H 95/56 L 94 09/18/20 22:30 102 H 97/55 L 94 09/18/20 22:15 103 H 38 H 101/61 94 09/18/20 22:00 103 H 107/58 L 96 09/18/20 21:45 105 H 94/57 L 96 09/18/20 21:30 105 H 89/62 L 96 09/18/20 21:15 107 H 97/68 L 96 09/18/20 21:00 107 H 104/63 96 09/18/20 20:45 108 H 104/74 96 09/18/20 20:30 110 H 91/70 L 96 09/18/20 20:15 110 H 97/67 L 96 09/18/20 20:00 37.5 C 110 H 95/65 L 97 09/18/20 19:45 110 H 93/59 L 98 09/18/20 19:30 114 H 99/65 L 97 09/18/20 19:15 117 H 46 H 92/67 L 94 09/18/20 19:00 117 H 90/70 L 94 09/18/20 18:30 120 H 112/63 94 09/18/20 18:15 119 H 105/69 93 09/18/20 18:01 119 H 93 09/18/20 18:00 119 H 105/85 92 09/18/20 17:46 118 H 93 09/18/20 17:45 118 H 105/71 93 09/18/20 17:31 117 H 94 09/18/20 17:30 117 H 103/70 94 09/18/20 17:16 117 H 94 09/18/20 17:15 117 H 113/62 93 09/18/20 17:01 118 H 89 L 09/18/20 17:00 115 H 95/60 L 89 L 09/18/20 16:58 116 H 96/63 L 95 09/18/20 16:46 114 H 89 L 09/18/20 16:45 116 H 112/60 96 09/18/20 16:31 114 H 96 09/18/20 16:30 114 H 107/64 96 09/18/20 16:16 118 H 95 09/18/20 16:15 117 H 104/67 95 09/18/20 16:01 115 H 95 09/18/20 16:00 115 H 92/66 L 95 09/18/20 15:45 117 H 86/57 L 94 09/18/20 15:31 124 H 92 09/18/20 15:30 123 H 113/60 93 09/18/20 15:21 123 H 100/54 L 97 09/18/20 15:20 123 H 38 H 97 09/18/20 15:15 126 H 88 L 09/18/20 15:10 37.4 C 131 H 119 H 38 H 113/60 99 09/18/20 14:35 133 H 127/70 100 09/18/20 14:30 132 H 111/67 100 09/18/20 14:25 134 H 135/83 97 09/18/20 14:21 140 H 144/90 H 95 09/18/20 14:20 141 H 96 09/18/20 14:16 144 H 109/76 92 09/18/20 14:10 136 H 112/74 99 09/18/20 14:05 138 H 119/75 100 09/18/20 14:01 141 H 100/62 97 09/18/20 14:00 141 H 96 09/18/20 13:55 142 H 118/84 97 09/18/20 13:50 141 H 132/69 98 09/18/20 13:46 142 H 143/77 H 09/18/20 13:40 143 H 111/68 94 09/18/20 13:35 144 H 137/83 09/18/20 13:30 137 H 140/79 91 09/18/20 13:25 143 H 128/80 93 09/18/20 13:20 135 H 149/84 H 93 09/18/20 13:16 130 H 142/84 H 95 09/18/20 13:10 136 H 112/97 97 09/18/20 13:05 135 H 138/89 96 09/18/20 13:00 142 H 126/86 95 09/18/20 12:55 142 H 133/84 100 09/18/20 12:50 145 H 88 L 09/18/20 12:47 36.3 C L 09/18/20 12:46 145 H 142/83 H 86 L 09/18/20 12:41 146 H 128/67 82 L 09/18/20 12:40 136 H 92 09/18/20 12:35 132 H 128/85 95 09/18/20 12:30 129 H 138/85 99 09/18/20 12:26 144 H 136/103 H 98 09/18/20 12:21 146 H 21 93 09/18/20 12:20 132 H 98 09/18/20 12:10 134 H 96 09/18/20 12:00 140 H 167/97 H 98 09/18/20 11:55 140 H 167/99 H 97 09/18/20 11:50 141 H 182/110 H 86 L 09/18/20 11:49 145 H 46 H 182/95 H 09/18/20 11:45 137 H 169/125 H 62 L 09/18/20 11:41 145 H 159/95 H 92 09/18/20 11:40 143 H 87 L 09/18/20 11:36 143 H 145/100 H 90 09/18/20 11:30 144 H 90 09/18/20 11:29 143 H 91 09/18/20 11:25 143 H 182/95 H 91 09/18/20 11:20 146 H 146 H 44 H 93 Pulse Ox 09/19/20 08:46 09/19/20 07:33 09/19/20 06:30 09/19/20 06:15 09/19/20 06:01 09/19/20 06:00 09/19/20 05:45 09/19/20 05:30 09/19/20 05:15 09/19/20 05:00 09/19/20 04:45 09/19/20 04:33 09/19/20 04:00 09/19/20 03:45 09/19/20 03:30 09/19/20 03:15 09/19/20 02:45 09/19/20 02:30 09/19/20 02:15 09/19/20 02:08 09/19/20 02:00 09/19/20 01:45 09/19/20 01:00 09/19/20 00:32 09/19/20 00:15 09/19/20 00:00 09/18/20 23:55 09/18/20 23:45 09/18/20 23:30 09/18/20 23:15 09/18/20 23:00 09/18/20 22:45 09/18/20 22:30 09/18/20 22:15 09/18/20 22:00 09/18/20 21:45 09/18/20 21:30 09/18/20 21:15 09/18/20 21:00 09/18/20 20:45 09/18/20 20:30 09/18/20 20:15 09/18/20 20:00 09/18/20 19:45 09/18/20 19:30 09/18/20 19:15 09/18/20 19:00 09/18/20 18:30 09/18/20 18:15 09/18/20 18:01 09/18/20 18:00 09/18/20 17:46 09/18/20 17:45 09/18/20 17:31 09/18/20 17:30 09/18/20 17:16 09/18/20 17:15 09/18/20 17:01 09/18/20 17:00 09/18/20 16:58 09/18/20 16:46 09/18/20 16:45 09/18/20 16:31 09/18/20 16:30 09/18/20 16:16 09/18/20 16:15 09/18/20 16:01 09/18/20 16:00 09/18/20 15:45 09/18/20 15:31 09/18/20 15:30 09/18/20 15:21 09/18/20 15:20 09/18/20 15:15 09/18/20 15:10 99 09/18/20 14:35 09/18/20 14:30 09/18/20 14:25 09/18/20 14:21 09/18/20 14:20 09/18/20 14:16 09/18/20 14:10 09/18/20 14:05 09/18/20 14:01 09/18/20 14:00 09/18/20 13:55 09/18/20 13:50 09/18/20 13:46 09/18/20 13:40 09/18/20 13:35 09/18/20 13:30 09/18/20 13:25 09/18/20 13:20 09/18/20 13:16 09/18/20 13:10 09/18/20 13:05 09/18/20 13:00 09/18/20 12:55 09/18/20 12:50 09/18/20 12:47 09/18/20 12:46 09/18/20 12:41 09/18/20 12:40 09/18/20 12:35 09/18/20 12:30 09/18/20 12:26 09/18/20 12:21 09/18/20 12:20 09/18/20 12:10 09/18/20 12:00 09/18/20 11:55 09/18/20 11:50 09/18/20 11:49 09/18/20 11:45 09/18/20 11:41 09/18/20 11:40 09/18/20 11:36 09/18/20 11:30 09/18/20 11:29 09/18/20 11:25 09/18/20 11:20 Pre-Sedation Airway Assessment Smoking Status: Current every day smoker Hx Sleep Apnea: No Notes The planned sedation has been discussed with the patient. Informed Consent was obtained. I have identified the patient, determined the appropriateness of sedation and have assessed the patient immediately prior to the procedure. All medicine(s) and interventions are by my order.
[2020-09-19] MEDS: FUROSEMIDE 40 MG in SYRINGE 0 ML IV SCH ×2 (10:19→16:43)
--- NOTE | 2020-09-19 10:19 | Post Anesthesia Assessment ---
Date of Service September 19, 2020 Post Sedation Assessment Vital Signs Temp Pulse Pulse Resp BP BP Pulse Ox 09/19/20 08:46 28 H 09/19/20 07:33 33 H 09/19/20 06:30 37.5 C 86 93/52 L 98 09/19/20 06:15 37.5 C 85 90/52 L 98 09/19/20 06:01 37.5 C 85 98 09/19/20 06:00 37.5 C 85 91/53 L 98 09/19/20 05:45 37.4 C 85 91/54 L 99 09/19/20 05:30 37.4 C 87 91/52 L 99 09/19/20 05:15 37.6 C H 91 H 91/56 L 100 09/19/20 05:00 37.6 C H 94 H 09/19/20 04:45 37.7 C H 93 H 106/59 L 93 09/19/20 04:33 94 H 37 H 93 09/19/20 04:00 37.7 C H 94 H 102/64 94 09/19/20 03:45 37.7 C H 93 H 104/52 L 93 09/19/20 03:30 37.7 C H 94 H 92/63 L 94 09/19/20 03:15 37.7 C H 96 H 101/58 L 93 09/19/20 02:45 37.7 C H 96 H 96/58 L 93 09/19/20 02:30 37.7 C H 95 H 97/58 L 91 09/19/20 02:15 37.7 C H 97 H 92/51 L 92 09/19/20 02:08 97 H 36 H 94 09/19/20 02:00 37.8 C H 96 H 96/59 L 95 09/19/20 01:45 37.8 C H 98 H 102/56 L 94 09/19/20 01:00 37.8 C H 97 H 92/58 L 95 09/19/20 00:32 37.7 C H 97 H 89/46 L 96 09/19/20 00:15 37.7 C H 101 H 98/60 L 99 09/19/20 00:00 37.7 C H 101 H 91/60 L 94 09/18/20 23:55 101 H 09/18/20 23:45 37.6 C H 101 H 96/63 L 94 09/18/20 23:30 37.6 C H 101 H 93/58 L 94 09/18/20 23:15 37.6 C H 102 H 91/59 L 94 09/18/20 23:00 101 H 100/57 L 94 09/18/20 22:45 37.5 C 102 H 95/56 L 94 09/18/20 22:30 102 H 97/55 L 94 09/18/20 22:15 103 H 38 H 101/61 94 09/18/20 22:00 103 H 107/58 L 96 09/18/20 21:45 105 H 94/57 L 96 09/18/20 21:30 105 H 89/62 L 96 09/18/20 21:15 107 H 97/68 L 96 09/18/20 21:00 107 H 104/63 96 09/18/20 20:45 108 H 104/74 96 09/18/20 20:30 110 H 91/70 L 96 09/18/20 20:15 110 H 97/67 L 96 09/18/20 20:00 37.5 C 110 H 95/65 L 97 09/18/20 19:45 110 H 93/59 L 98 09/18/20 19:30 114 H 99/65 L 97 09/18/20 19:15 117 H 46 H 92/67 L 94 09/18/20 19:00 117 H 90/70 L 94 09/18/20 18:30 120 H 112/63 94 09/18/20 18:15 119 H 105/69 93 09/18/20 18:01 119 H 93 09/18/20 18:00 119 H 105/85 92 09/18/20 17:46 118 H 93 09/18/20 17:45 118 H 105/71 93 09/18/20 17:31 117 H 94 09/18/20 17:30 117 H 103/70 94 09/18/20 17:16 117 H 94 09/18/20 17:15 117 H 113/62 93 09/18/20 17:01 118 H 89 L 09/18/20 17:00 115 H 95/60 L 89 L 09/18/20 16:58 116 H 96/63 L 95 09/18/20 16:46 114 H 89 L 09/18/20 16:45 116 H 112/60 96 09/18/20 16:31 114 H 96 09/18/20 16:30 114 H 107/64 96 09/18/20 16:16 118 H 95 09/18/20 16:15 117 H 104/67 95 09/18/20 16:01 115 H 95 09/18/20 16:00 115 H 92/66 L 95 09/18/20 15:45 117 H 86/57 L 94 09/18/20 15:31 124 H 92 09/18/20 15:30 123 H 113/60 93 09/18/20 15:21 123 H 100/54 L 97 09/18/20 15:20 123 H 38 H 97 09/18/20 15:15 126 H 88 L 09/18/20 15:10 37.4 C 131 H 119 H 38 H 113/60 99 09/18/20 14:35 133 H 127/70 100 09/18/20 14:30 132 H 111/67 100 09/18/20 14:25 134 H 135/83 97 09/18/20 14:21 140 H 144/90 H 95 09/18/20 14:20 141 H 96 09/18/20 14:16 144 H 109/76 92 09/18/20 14:10 136 H 112/74 99 09/18/20 14:05 138 H 119/75 100 09/18/20 14:01 141 H 100/62 97 09/18/20 14:00 141 H 96 09/18/20 13:55 142 H 118/84 97 09/18/20 13:50 141 H 132/69 98 09/18/20 13:46 142 H 143/77 H 09/18/20 13:40 143 H 111/68 94 09/18/20 13:35 144 H 137/83 09/18/20 13:30 137 H 140/79 91 09/18/20 13:25 143 H 128/80 93 09/18/20 13:20 135 H 149/84 H 93 09/18/20 13:16 130 H 142/84 H 95 09/18/20 13:10 136 H 112/97 97 09/18/20 13:05 135 H 138/89 96 09/18/20 13:00 142 H 126/86 95 09/18/20 12:55 142 H 133/84 100 09/18/20 12:50 145 H 88 L 09/18/20 12:47 36.3 C L 09/18/20 12:46 145 H 142/83 H 86 L 09/18/20 12:41 146 H 128/67 82 L 09/18/20 12:40 136 H 92 09/18/20 12:35 132 H 128/85 95 09/18/20 12:30 129 H 138/85 99 09/18/20 12:26 144 H 136/103 H 98 09/18/20 12:21 146 H 21 93 09/18/20 12:20 132 H 98 09/18/20 12:10 134 H 96 09/18/20 12:00 140 H 167/97 H 98 09/18/20 11:55 140 H 167/99 H 97 09/18/20 11:50 141 H 182/110 H 86 L 09/18/20 11:49 145 H 46 H 182/95 H 09/18/20 11:45 137 H 169/125 H 62 L 09/18/20 11:41 145 H 159/95 H 92 09/18/20 11:40 143 H 87 L 09/18/20 11:36 143 H 145/100 H 90 09/18/20 11:30 144 H 90 09/18/20 11:29 143 H 91 09/18/20 11:25 143 H 182/95 H 91 09/18/20 11:20 146 H 146 H 44 H 93 Pulse Ox 09/19/20 08:46 09/19/20 07:33 09/19/20 06:30 09/19/20 06:15 09/19/20 06:01 09/19/20 06:00 09/19/20 05:45 09/19/20 05:30 09/19/20 05:15 09/19/20 05:00 09/19/20 04:45 09/19/20 04:33 09/19/20 04:00 09/19/20 03:45 09/19/20 03:30 09/19/20 03:15 09/19/20 02:45 09/19/20 02:30 09/19/20 02:15 09/19/20 02:08 09/19/20 02:00 09/19/20 01:45 09/19/20 01:00 09/19/20 00:32 09/19/20 00:15 09/19/20 00:00 09/18/20 23:55 09/18/20 23:45 09/18/20 23:30 09/18/20 23:15 09/18/20 23:00 09/18/20 22:45 09/18/20 22:30 09/18/20 22:15 09/18/20 22:00 09/18/20 21:45 09/18/20 21:30 09/18/20 21:15 09/18/20 21:00 09/18/20 20:45 09/18/20 20:30 09/18/20 20:15 09/18/20 20:00 09/18/20 19:45 09/18/20 19:30 09/18/20 19:15 09/18/20 19:00 09/18/20 18:30 09/18/20 18:15 09/18/20 18:01 09/18/20 18:00 09/18/20 17:46 09/18/20 17:45 09/18/20 17:31 09/18/20 17:30 09/18/20 17:16 09/18/20 17:15 09/18/20 17:01 09/18/20 17:00 09/18/20 16:58 09/18/20 16:46 09/18/20 16:45 09/18/20 16:31 09/18/20 16:30 09/18/20 16:16 09/18/20 16:15 09/18/20 16:01 09/18/20 16:00 09/18/20 15:45 09/18/20 15:31 09/18/20 15:30 09/18/20 15:21 09/18/20 15:20 09/18/20 15:15 09/18/20 15:10 99 09/18/20 14:35 09/18/20 14:30 09/18/20 14:25 09/18/20 14:21 09/18/20 14:20 09/18/20 14:16 09/18/20 14:10 09/18/20 14:05 09/18/20 14:01 09/18/20 14:00 09/18/20 13:55 09/18/20 13:50 09/18/20 13:46 09/18/20 13:40 09/18/20 13:35 09/18/20 13:30 09/18/20 13:25 09/18/20 13:20 09/18/20 13:16 09/18/20 13:10 09/18/20 13:05 09/18/20 13:00 09/18/20 12:55 09/18/20 12:50 09/18/20 12:47 09/18/20 12:46 09/18/20 12:41 09/18/20 12:40 09/18/20 12:35 09/18/20 12:30 09/18/20 12:26 09/18/20 12:21 09/18/20 12:20 09/18/20 12:10 09/18/20 12:00 09/18/20 11:55 09/18/20 11:50 09/18/20 11:49 09/18/20 11:45 09/18/20 11:41 09/18/20 11:40 09/18/20 11:36 09/18/20 11:30 09/18/20 11:29 09/18/20 11:25 09/18/20 11:20 Discharge Sedation Level of Care: Fast Track Phase II Post Sedation Plan On clinical assessment, the patient appears to have tolerated the sedation without complications. Patient is recovering as anticipated. Patient will continue to be monitored by nursing and may be discharged when sedation discharge criteria are met per below protocol. Upon Completions of procedure up to 15 minutes continue every 5 minute vital signs and the P.A.R. score; then discharge to a Phase I or Fast Track to Phase II per the following guidelines: * Discharge Patient to appropriate Phase II area if PAR is 8 or greater or return to pre- procedure baseline. The post - procedure orders will be as directed. * If PAR score is less than 8 or not return to pre-procedure baseline then patient will follow Phase I monitoring till PAR is reached for Phase II. The Phase I may be done in procedure room or may call to secure a Phase I area. * If naloxone or flumazenil are used for reversal, hold in Phase I for continued monitoring from when last reversal dose was given for a minimum of 60 minutes or longer pending the nurse and/or physician discretion of patient condition before discharge to Phase II. Please call the Sedation Physician to re-evaluate and complete post-note for discharge to Phase II area. Do NOT discharge from procedure sedation or Phase 1 until post- sedation evaluation note is complete by procedure /sedation MD Sedation Discharge Instructions to be given to the patient at discharge to home.
--- NOTE | 2020-09-19 10:21 | Operative Report ---
Post Operative Report Pre & Post Diagnosis Aortic stenosis, r/o endocarditis I identified the patient and participated in the time-out.: Yes Procedure STEVEN performed Moderate no valvular lesions Surgeon Sandeep Hall DO Digital Production Manager Luke RN Estimated Blood Loss 0 Findings Consistent with Post-Op Diagnosis Specimens none Description of Procedure STEVEN Sedation provided by POST DOCTORAL RESEARCHER, already on Fentanyl and Propofol gtts. I attest to the content of the Intraoperative Record and any orders documented therein. Any exceptions are noted below.
--- NOTE | 2020-09-19 10:22 | Cardiology Progress Note ---
Date of Service September 19, 2020 Assessment & Plan (1) Acute hypoxemic respiratory failure: (2) Pulmonary edema cardiac cause: (3) Lactic acidosis: (4) Aortic stenosis: (5) S/P coronary artery stent placement: 40-year-old female presents with respiratory failure, has been found to have significant lactic acidosis, minimally elevated troponin I, and abnormal chest x-ray consistent with pulmonary edema from congestive heart failure or atypical pneumonia. Her SARS-CoV-2 PCR test is negative. Echocardiogram reveals preserved LV systolic function, however contractility is somewhat less than expected for heart rate of 130 bpm which was present at the time of the image acquisition just after endotracheal tube intubation. The aortic valve is not well visualized on 2D imaging, but is at least mildly calcified. Although there has been concern for have a congenitally bicuspid aortic valve, previous studies including transesophageal echocardiogram performed Aug, 2017, previously revealed trileaflet aortic valve with congenitally dysmorphic morphology (early onset calcification) with longstanding history of some degree of aortic valve stenosis and regurgitation noted over the last several years. With regards to the hemodynamic assessment of aortic stenosis, there is somewhat discordant data. At the time of cardiac catheterization in January,, peak to peak gradient across the valve was measured to be only 10-20 mmHg suggestive of only mild aortic stenosis at that time. Doppler velocities that increased as of April 2020 consistent with moderate aortic valve stenosis. STEVEN performed prior to anticipated extubation. No valvular lesions consistent with endocarditis identified. Upon further visualization and planimetry aortic stenosis is moderate with a moderately calcified trileaflet aortic valve. No indication for intervention of the aortic valve at this time. No further cardiac testing intervention necessary at this time. We will defer further management to our critical care colleagues and primary team. Admission and Anticipated Discharge Date Admission Date: September 18, 2020 Subjective Patient seen and examined, chart reviewed. Patient currently intubated and sedated. Multiple attempts made to contact her by 2 different listed phone numbers without success. I was able to contact her primary contact as per records from [facility] and consent for STEVEN obtained. Review of Systems Review of Systems: Unobtainable due to endotracheal tube Physical Exam Physical Exam: General: Intubated and sedated. No acute distress. HEENT: Normocephalic, atraumatic. Pupils equal, round and reactive to light and accommodation. Extraocular muscles are intact. Anicteric sclera. Moist mucous membranes. Neck: No JVD. No bruit. Cardiovascular: Regular. Positive S-4. Normal S-1 and S-2. No S-3. 3/6 mid to late systolic ejection murmur, greatest at the right sternal border, second intercostal space with radiation to the bilateral carotids. No rubs. Pulmonary: Clear to auscultation bilaterally. No rales, rhonchi, or wheezing. Abdomen: Bowel sounds x 4, soft. No rebound, guarding or tenderness. No organomegaly. Extremities: No clubbing, cyanosis or edema. +2 pedal pulses bilaterally. Skin: Warm and dry. Results & Data ([facility]) Vital Signs (Past 12 Hours) Vital Signs Temp Pulse Resp BP Pulse Ox 09/19/20 08:46 28 H 09/19/20 07:33 33 H 09/19/20 06:30 37.5 C 86 93/52 L 98 09/19/20 06:15 37.5 C 85 90/52 L 98 09/19/20 06:01 37.5 C 85 98 09/19/20 06:00 37.5 C 85 91/53 L 98 09/19/20 05:45 37.4 C 85 91/54 L 99 09/19/20 05:30 37.4 C 87 91/52 L 99 09/19/20 05:15 37.6 C H 91 H 91/56 L 100 09/19/20 05:00 37.6 C H 94 H 09/19/20 04:45 37.7 C H 93 H 106/59 L 93 09/19/20 04:33 94 H 37 H 93 09/19/20 04:00 37.7 C H 94 H 102/64 94 09/19/20 03:45 37.7 C H 93 H 104/52 L 93 09/19/20 03:30 37.7 C H 94 H 92/63 L 94 09/19/20 03:15 37.7 C H 96 H 101/58 L 93 09/19/20 02:45 37.7 C H 96 H 96/58 L 93 09/19/20 02:30 37.7 C H 95 H 97/58 L 91 09/19/20 02:15 37.7 C H 97 H 92/51 L 92 09/19/20 02:08 97 H 36 H 94 09/19/20 02:00 37.8 C H 96 H 96/59 L 95 09/19/20 01:45 37.8 C H 98 H 102/56 L 94 09/19/20 01:00 37.8 C H 97 H 92/58 L 95 09/19/20 00:32 37.7 C H 97 H 89/46 L 96 09/19/20 00:15 37.7 C H 101 H 98/60 L 99 09/19/20 00:00 37.7 C H 101 H 91/60 L 94 09/18/20 23:55 101 H 09/18/20 23:45 37.6 C H 101 H 96/63 L 94 09/18/20 23:30 37.6 C H 101 H 93/58 L 94 09/18/20 23:15 37.6 C H 102 H 91/59 L 94 09/18/20 23:00 101 H 100/57 L 94 09/18/20 22:45 37.5 C 102 H 95/56 L 94 09/18/20 22:30 102 H 97/55 L 94
--- NOTE | 2020-09-19 12:10 | XRay Report ---
KUB HISTORY: confirm orogastric tube placement COMPARISON: KUB 09/18/2020. FINDINGS: The bowel gas pattern is unremarkable. There are no dilated loops of small bowel to suggest an obstruction. No renal calculi. No ureteral calculi. No pneumoperitoneum or pneumatosis. The naso gastric tube terminates in the body the stomach. Prior cholecystectomy. Lumbar spinal fusion hardware is again noted. A rectal catheter is in place. Bilateral airspace opacities persist. IMPRESSION: Nasogastric tube terminates in the stomach. ACT 112: Negative or not required by law. Electronically signed by: Arnol Kenney M.D. 09/19/2020 12:09 PM
--- NOTE | 2020-09-19 13:45 | Electrocardiogram Report ---
Test Reason : Blood Pressure : / mmHG Vent. Rate : 093 BPM Atrial Rate : 093 BPM P-R Int : 146 ms QRS Dur : 092 ms QT Int : 386 ms P-R-T Axes : 050 049 001 degrees QTc Int : 479 ms Normal sinus rhythm Nonspecific T wave abnormality Abnormal ECG When compared with ECG of 18-SEP-2020 12:41, Nonspecific T wave abnormality has replaced inverted T waves in Inferior leads Confirmed by Carlos Goodman ([id number]) on 09/19/2020 1:44:51 PM Referred By: REFERRED SELF Confirmed By:Carlos Goodman
--- NOTE | 2020-09-19 16:45 | Hospitalist Progress Note ---
Date of Service September 19, 2020 Assessment & Plan (1) Acute hypoxemic respiratory failure: (2) Acute on chronic heart failure with preserved ejection fraction (HFpEF): (3) Pulmonary edema cardiac cause: (4) Lactic acidosis: (5) Elevated troponin I level: Present on admission with worsening SOB Sedated and intubated on vent support COVID 19 negative CXR showed significant progression of the near diffuse bilateral airspace opacities. ECHO showed showed left ventricular wall motion is normal. EF 60 to 65 % Vent management as Continue IV lasix Zithromax an rocephin discontinued Continue monitor closely in the ICU (6) Anemia, iron deficiency: (7) Bicuspid aortic valve: (8) Coronary artery disease: (9) Hx of drug abuse: Tox screen negative. (10) Diabetes mellitus, type 2: Stop PO DM medications. Insulin while inpatient (11) Hypertension: (12) Asthma: (13) DVT prophylaxis: Per critical care team- Heparin Admission and Anticipated Discharge Date Admission Date: September 18, 2020 Subjective Pt was seen and examined for follow up of respiratory failure Sedated on mechanical Vent support Review of Systems Review of Systems: All systems reviewed & are unremarkable except as noted in Subjective Physical Exam Physical Exam: General- sedated intubated Head- atraumatic Eyes- PERRL, EOMI, ENT- Intubated Neck- supple, no JVD Lungs- clear to auscultation Heart- regular rhythm; no murmur Abdomen- normal bowel sounds, soft, nontender Extremities- no calf tenderness Neuro- Sedated Skin- warm & dry Results & Data Results & Data ([facility]) Vital Signs (Past 12 Hours) Vital Signs Temp Pulse Resp BP Pulse Ox 09/19/20 14:59 92 H 32 H 93 09/19/20 13:27 28 H 09/19/20 10:46 99 H 34 H 93 09/19/20 08:46 28 H 09/19/20 08:00 99 H 09/19/20 07:33 33 H 09/19/20 06:30 37.5 C 86 93/52 L 98 09/19/20 06:15 37.5 C 85 90/52 L 98 09/19/20 06:01 37.5 C 85 98 09/19/20 06:00 37.5 C 85 91/53 L 98 09/19/20 05:45 37.4 C 85 91/54 L 99 09/19/20 05:30 37.4 C 87 91/52 L 99 09/19/20 05:15 37.6 C H 91 H 91/56 L 100 09/19/20 05:00 37.6 C H 94 H (1) Diabetes mellitus, type 2 Diabetes mellitus complication status: with unspecified complications Diabetes mellitus long goods drier insulin use: without penitentiary use Qualified Code(s): E11.8 - Type 2 diabetes mellitus with unspecified complications
[2020-09-19] MEDS: ENOXAPARIN INJ 40 MG/0.4 ML SYR SQ SCH (20:11)
[2020-09-19] MEDS: PROPOFOL BOLUS FROM BAG IV PRN (21:10)
[2020-09-20] MEDS: INSULIN ASPART 100 UNITS/ML 3 ML PEN SC SCH ×6 (00:34→20:41)
[2020-09-20] MEDS: propofoL 1,000 MG/100 ML VIAL IV SCH ×3 (01:53→05:10)
[2020-09-20] MEDS: fentaNYL DRIP 1,250 MCG/250 ML BAG IV SCH ×3 (01:54→05:11)
[2020-09-20] MEDS: PROPOFOL BOLUS FROM BAG IV PRN ×2 (02:00→04:46)
[2020-09-20 04:39] LABS: Basophils # (auto) 0.02 K/uL (0-0.2); Basophils % (auto) 0.1 %; Eosinophils # (auto) 0.68 K/uL (0-0.5); Eosinophils % (auto) 3.9 %; Hemoglobin 7.2 g/dL (12.0-16.0); Immature Granulocytes # (auto) 0.07 K/uL (0.00-0.02); Immature Granulocytes % (auto) 0.4 %; Lymphocytes # (auto) 3.16 K/uL (1.2-3.4); Lymphocytes % (auto) 18.2 %; Mean Corpuscular Hemoglobin 22.6 pg (25-34); Mean Corpuscular Volume 75.2 fL (80-100); Mean Platelet Volume 9.3 fL (7.4-10.4); Monocytes # (auto) 0.95 K/uL (0.11-0.59); Monocytes % (auto) 5.5 %; Neutrophils # (auto) 12.47 K/uL (1.4-6.5); Neutrophils % (auto) 71.9 %; Platelet Count 310 K/uL (130-400); RDW Standard Deviation 55.2 fL (36.4-46.3); Red Blood Count 3.19 M/uL (4.2-5.4); White Blood Count 17.35 K/uL (4.8-10.8)
[2020-09-20 04:47] LABS: iSTAT Arterial Blood Gas HCO3 24 meg/L (19-24); iSTAT Arterial Blood Gas pCO2 39 mmHg (35-46); iSTAT Arterial Blood Gas pH 7.41 (7.35-7.45); iSTAT Arterial Blood Gas pO2 77 mmHg (80-95); iSTAT Carbon Dioxide 26 mmol/L (24-31)
[2020-09-20] MEDS: MIDAZOLAM HCL 125 MG/250 ML BAG IV SCH ×2 (05:10→09:12)
[2020-09-20 05:14] LABS: Albumin Level 2.5 gm/dl (3.4-5.0); BUN Creatinine Ratio 24.8 (10-20); Bilirubin Direct 0.2 mg/dl (0-0.2); Calcium 7.5 mg/dl (8.5-10.1); Est GFR (African American) 121.8 ml/min; Est GFR (Non-African American) 105.1 ml/min; Potassium 3.1 mmol/L (3.5-5.1)
[2020-09-20 05:17] LABS: Bilirubin,Total 0.4 mg/dl (0.2-1); Total Protein 6.4 gm/dl (6.4-8.2)
[2020-09-20 05:31] LABS: Anisocytosis Present; Hypochromasia Present
[2020-09-20 06:46] LABS: Magnesium 2.4 mg/dl (1.8-2.4); Phosphorus 2.9 mg/dl (2.5-4.9)
[2020-09-20] MEDS: ICU ELECTROLYTE REPLACEMENT PROTOCOL SCH ×2 (06:48→16:31)
[2020-09-20] MEDS: POTASSIUM CHLORIDE 20 MEQ/15 ML UDC NG SCH ×2 (08:05→09:03)
[2020-09-20] MEDS: ASPIRIN 81 MG CHEW NG SCH (08:05)
[2020-09-20] MEDS: ENOXAPARIN INJ 40 MG/0.4 ML SYR SQ SCH ×2 (08:05→20:40)
[2020-09-20] MEDS: FUROSEMIDE 40 MG in SYRINGE 0 ML IV SCH ×2 (08:05→16:30)
[2020-09-20] MEDS: FAMOTIDINE 20 MG in SYRINGE 3 ML IV SCH ×2 (08:05→20:41)
[2020-09-20] MEDS: ATORVASTATIN 40 MG TAB NG SCH (08:06)
[2020-09-20] MEDS: CLOPIDOGREL BISULFATE 75 MG TAB PEG SCH (08:06)
[2020-09-20] MEDS: INSULIN GLARGINE SOLOSTAR 100 UNITS/ML 3 ML PEN SC SCH (08:08)
--- NOTE | 2020-09-20 08:08 | XRay Report ---
XR chest 1V portable HISTORY: Respiratory failure. COMPARISON: Chest 09/19/2020. FINDINGS: Endotracheal tube terminates approximately 1 cm from the misti. Nasogastric tube terminate s below the diaphragm. The tip is not included on this study. The heart remains enlarged. Bilateral a irspace opacities and trace bilateral pleural effusions persist. IMPRESSION: 1. The endotracheal tube terminates 1 cm from the misti. This should be pulled back by approximately 1 to 2 cm. 2. No significant change in the bilateral airspace opacities. 3. This report was called/faxed to the referring physician following dictation. ACT 112: Negative or not required by law. Electronically signed by: Arnol Kenney M.D. 09/20/2020 8:07 AM
--- NOTE | 2020-09-20 08:17 | Critical Care Progress Note ---
Date of Service September 20, 2020 Assessment & Plan (1) Hypoxia: (2) Acute CHF (congestive heart failure): (3) Acute on chronic heart failure with preserved ejection fraction (HFpEF): (4) Acute hypoxemic respiratory failure: (5) Pulmonary edema cardiac cause: (6) Lactic acidosis: Impression: 40-year-old female with complex medical history including valvular heart disease, medical noncompliance, obesity, and diastolic heart failure admitted with flash pulmonary edema and profound hypertension. Recommendations: 1. Neurologic: Continue sedation with propofol and as needed fentanyl. The patient has a longstanding history of substance abuse and is on Suboxone in the outpatient setting. Discontinuing sedation and proceeding with extubation 2. Cardiovascular: Flash pulmonary edema: Continue efforts at diuresis and optimization of blood pressure control. We will place her on hydralazine as needed. No evidence of endocarditis on STEVEN. 3. Pulmonary: Flash pulmonary edema: Past spontaneous breathing trial. No obvious evidence of pneumonia Check urinary Legionella antigen given her markedly elevated white blood cell count although this could be due to a stress response. Fairly significant metabolic and respiratory acidosis on presentation -Patient has required BiPAP for bridging 4. Renal: Aggressive diuresis. Electrolyte replacement. Follow serum creatinine. Metabolic and respiratory acidosis with an elevated lactate at 6.5: Resolved. 5. ID: Reinitiate Zithromax for being febrile anticipate total of 5 days of therapy 6. GI: N.p.o. for now. Initiate H2 vijay for prophylaxis 7. Endocrine: History of diabetes. Glycemic consult for glycemic control. May require insulin infusion depending on clinical response. 8. Heme-onc: Marked leukocytosis of unclear etiology; however, improving. transition 0.5mg twice daily Lovenox given history of DVT Admission and Anticipated Discharge Date Admission Date: September 18, 2020 Supervising Physician Co-Signing Physician Notes Patient was discussed in multidisciplinary rounds I have personally spent 45 minutes of critical care time in the direct ma nagement of this patient. This is a life/limb threatening event. This includes time spent evaluating patient, direct bedside care, chart review, placing orders, interpretation of diagnostic studies, discussion with consultants, patient, and/or family members regarding treatment decisions, as well as other required patient management activities. This time is exclusive of all separately billable procedures, and teaching time and separate from and in addition to any other critical care service time. Subjective Pt was seen and examined for follow up of respiratory failure Sedated on mechanical Vent support Review of Systems Review of Systems: Unobtainable due to endotracheal tube Physical Exam Physical Exam: General: sedated. nontoxic. Skin: Warm, dry, No stigmata of endocarditis Head: Atraumatic Ears, nose, mouth and throat: airway Obscured by endotracheal tube Cardiovascular: Normal peripheral perfusion Respiratory: no respiratory distress Gastrointestinal: Non distended Musculoskeletal: No deformity Results & Data Results & Data ([facility]) Vital Signs (Past 12 Hours) Vital Signs Temp Pulse Resp BP Pulse Ox 09/20/20 07:46 100 H 33 H 91 09/20/20 06:00 37.7 C H 90 118/64 94 09/20/20 05:45 37.6 C H 86 114/62 89 L 09/20/20 05:30 37.6 C H 89 117/67 94 09/20/20 05:15 37.5 C 87 116/63 94 09/20/20 05:01 37.4 C 88 92 09/20/20 05:00 37.4 C 86 114/59 L 92 09/20/20 04:45 37.4 C 89 114/64 92 09/20/20 04:30 37.3 C 90 124/73 96 09/20/20 04:15 37.2 C 85 121/61 97 09/20/20 04:01 37.2 C 88 96 09/20/20 04:00 37.2 C 86 119/68 96 09/20/20 03:45 37.1 C 86 27 H 113/63 96 09/20/20 03:30 37.1 C 81 110/62 97 09/20/20 03:15 37.1 C 81 116/64 96 09/20/20 03:01 37.1 C 83 97 09/20/20 03:00 37.1 C 82 113/69 97 09/20/20 02:45 37.2 C 84 107/66 98 09/20/20 02:30 37.2 C 93 H 99/81 L 95 09/20/20 02:01 37.3 C 79 95 09/20/20 02:00 37.3 C 78 98/64 L 94 09/20/20 01:45 37.3 C 79 107/61 94 09/20/20 01:30 37.3 C 79 103/66 94 09/20/20 01:15 37.3 C 79 104/65 94 09/20/20 01:01 37.4 C 80 95 09/20/20 01:00 37.4 C 79 102/60 95 09/20/20 00:45 37.4 C 81 102/64 94 09/20/20 00:30 37.4 C 81 105/61 94 09/20/20 00:16 37.4 C 83 94 09/20/20 00:15 37.4 C 80 102/64 94 09/20/20 00:05 84 09/20/20 00:01 37.4 C 81 94 09/20/20 00:00 37.4 C 82 110/66 94 09/19/20 23:45 37.5 C 83 105/66 94 09/19/20 23:30 37.5 C 83 105/60 94 09/19/20 23:15 37.5 C 84 105/65 94 09/19/20 23:01 37.5 C 86 94 09/19/20 23:00 37.5 C 85 105/63 94 09/19/20 22:45 37.5 C 85 105/63 94 09/19/20 22:30 37.6 C H 86 105/61 94 09/19/20 22:29 97 H 29 H 94 09/19/20 22:15 37.6 C H 85 105/64 94 09/19/20 22:01 37.6 C H 85 94 09/19/20 22:00 37.6 C H 85 100/59 L 94 09/19/20 21:45 37.7 C H 87 100/59 L 95 09/19/20 21:30 37.6 C H 87 111/66 93 09/19/20 21:16 37.7 C H 90 93 09/19/20 21:15 37.7 C H 90 109/72 93 09/19/20 21:01 37.7 C H 90 93 09/19/20 21:00 37.7 C H 88 106/67 93 09/19/20 20:45 37.8 C H 89 105/65 94 09/19/20 20:30 37.8 C H 90 111/63 94 Coding Level of Care Code Critical Care 1st 30-74 mins Diagnoses Hypoxia R09.02 Acute CHF (congestive heart failure) I50.9 Acute on chronic heart failure with preserved ejection fraction (HFpEF) I50.33 Acute hypoxemic respiratory failure J96.01 Pulmonary edema cardiac cause I50.1 Lactic acidosis E87.2
[2020-09-20] MEDS ORDERED: RACEPINEPHRINE 2.25% NEBU SOLN 0.5 ML VIAL NEB STA (08:39)
[2020-09-20] MEDS ORDERED: RACEPINEPHRINE 2.25% NEBU SOLN 0.5 ML VIAL ONE (08:44)
[2020-09-20] MEDS ORDERED: FUROSEMIDE 40 MG in SYRINGE 0 ML IV SCH (09:00)
[2020-09-20] MEDS: AZITHROMYCIN 500 MG in DEXTROSE 5% 250 ML IV SCH (09:06)
[2020-09-20] MEDS ORDERED: SODIUM CHLORIDE 0.9% 250 ML IV PRN (09:41)
[2020-09-20] MEDS: POTASSIUM ACETATE/NSS 10 MEQ/105 ML BAG IV SCH ×2 (10:26→11:24)
[2020-09-20] MEDS: levETIRAcetam 500 MG in 0.9 % SODIUM CHLORIDE 100 ML IV SCH ×2 (10:26→21:19)
--- NOTE | 2020-09-20 11:09 | Pharmacy Report ---
Pharmacy Glycemic Short Note 2 - Date of Service September 20, 2020 - Glycemic Short BSG Results (Last 24 hours): 09/19/20 09/19/20 09/19/20 12:15 16:40 20:07 Glucose POC Glucose 142 H 140 H 131 H 09/20/20 09/20/20 09/20/20 00:29 04:29 04:30 Glucose 104 H POC Glucose 127 H 116 H 09/20/20 08:07 Glucose POC Glucose 112 H OUTPATIENT ANTIDIABETIC REGIMEN: * Glipizide 10mg PO daily w/ dinner * Metformin 1000mg PO BID w/ meals * A1c = 7% 09/19/20 ASSESSMENT: * Well controlled type 2 diabetic admitted to ICU for ADHF, resp failure, flash pulm edema, possible pneumonia * Patient had been intubated, but has been extubated as of this morning * IV abx continue * Patient will remain NPO today * BSGs well controlled over last 24 hrs with current insulin orders PLAN FOR INPATIENT GLYCEMIC CONTROL: * Hold outpatient oral diabetes medications (glipizide, metformin) * Basal insulin * Lantus 5 units SQ Q AM * Bolus insulinQ 4 hrs * Goal Range: Low 110 mg/dL - High 140 mg/dL * Correction Factor: 20 mg/dL/unit * Nutritional / Prandial insulin per carb ratio of 1 unit per 7 grams CHO consumed PLAN FOR DISCHARGE: * may resume home glipizide, metformin regimen on discharge if no contraindications present at time of discharge. Recent A1c 7% at goal for this patient.
[2020-09-20] MEDS ORDERED: ACETAMINOPHEN 650 MG SUPP PR PRN (13:10)
--- NOTE | 2020-09-20 13:24 | Electrocardiogram Report ---
Test Reason : Blood Pressure : / mmHG Vent. Rate : 082 BPM Atrial Rate : 082 BPM P-R Int : 146 ms QRS Dur : 096 ms QT Int : 416 ms P-R-T Axes : 053 050 -57 degrees QTc Int : 486 ms Poor data quality, interpretation may be adversely affected Normal sinus rhythm Nonspecific ST and T wave abnormality Prolonged QT Abnormal ECG When compared with ECG of 19-SEP-2020 04:27, No significant change was found Confirmed by Carlos Goodman ([id number]) on 09/20/2020 1:24:03 PM Referred By: REFERRED SELF Confirmed By:Carlos Goodman
[2020-09-20 13:40] LABS: iSTAT Arterial Blood Gas HCO3 28 meg/L (19-24); iSTAT Arterial Blood Gas pCO2 38 mmHg (35-46); iSTAT Arterial Blood Gas pH 7.47 (7.35-7.45); iSTAT Arterial Blood Gas pO2 64 mmHg (80-95); iSTAT Carbon Dioxide 29 mmol/L (24-31)
--- NOTE | 2020-09-20 15:19 | Cardiology Progress Note ---
Date of Service September 20, 2020 Assessment & Plan (1) Acute hypoxemic respiratory failure: (2) Pulmonary edema cardiac cause: (3) Lactic acidosis: (4) Aortic stenosis: (5) S/P coronary artery stent placement: 40-year-old female presents with respiratory failure, has been found to have significant lactic acidosis, minimally elevated troponin I, and abnormal chest x-ray consistent with pulmonary edema from congestive heart failure or atypical pneumonia. Her SARS-CoV-2 PCR test is negative. STEVEN performed prior to anticipated extubation. No valvular lesions consistent with endocarditis identified. Upon further visualization and planimetry aortic stenosis is moderate with a moderately calcified trileaflet aortic valve. No indication for intervention of the aortic valve at this time. Diuresing well with IV Lasix. Would also consider the possibility of high-output cardiac failure given significant anemia. Recommend transfusing to maintain hemoglobin greater than 9 We will obviously defer airway management to our critical care colleagues. Admission and Anticipated Discharge Date Admission Date: September 18, 2020 Subjective Patient seen and examined, chart reviewed. Currently extubated but having some difficulty with positive pressure ventilation. Diuresing well overnight. Telemetry reviewed: Sinus tachycardia. Review of Systems Review of Systems: Unobtainable due to reduced consciousness Physical Exam Physical Exam: General: Not responding to verbal stimuli and difficulty on positive pressure ventilation HEENT: Normocephalic, atraumatic. Pupils equal, round and reactive to light and accommodation. Extraocular muscles are intact. Anicteric sclera. Moist mucous membranes. Neck: No JVD. No bruit. Cardiovascular: Regular. Positive S-4. Normal S-1 and S-2. No S-3. No mur murs or rubs. Pulmonary: Scattered rhonchi. Abdomen: Bowel sounds x 4, soft. No rebound, guarding or tenderness. No organomegaly. Extremities: No clubbing, cyanosis or edema. +2 pedal pulses bilaterally. Skin: Warm and dry. Results & Data ([facility]) Vital Signs (Past 12 Hours) Vital Signs Temp Pulse Pulse Resp BP Pulse Ox 09/20/20 14:00 38.1 C H 117 H 40 H 134/92 89 L 09/20/20 13:00 38.1 C H 109 H 44 H 148/78 H 94 09/20/20 12:30 38.1 C H 107 H 40 H 162/62 H 95 09/20/20 12:15 38.0 C H 105 H 40 H 164/61 H 94 09/20/20 11:58 37.9 C H 106 H 30 H 165/58 H 90 09/20/20 11:00 37.9 C H 106 H 54 H 140/88 97 09/20/20 10:45 108 H 36 H 98 09/20/20 10:00 37.9 C H 107 H 55 H 125/71 97 09/20/20 09:13 115 H 40 H 91 09/20/20 09:12 115 H 40 H 95 09/20/20 09:00 37.9 C H 110 H 33 H 149/81 H 91 09/20/20 08:00 38.0 C H 98 H 121/76 93 09/20/20 07:46 100 H 33 H 91 09/20/20 07:01 37.9 C H 99 H 118/69 100 09/20/20 06:00 37.7 C H 90 118/64 94 09/20/20 05:45 37.6 C H 86 114/62 89 L 09/20/20 05:30 37.6 C H 89 117/67 94 09/20/20 05:15 37.5 C 87 116/63 94 09/20/20 05:01 37.4 C 88 92 09/20/20 05:00 37.4 C 86 114/59 L 92 09/20/20 04:45 37.4 C 89 114/64 92 09/20/20 04:30 37.3 C 90 124/73 96 09/20/20 04:15 37.2 C 85 121/61 97 09/20/20 04:01 37.2 C 88 96 09/20/20 04:00 37.2 C 86 119/68 96 09/20/20 03:45 37.1 C 86 27 H 113/63 96 09/20/20 03:30 37.1 C 81 110/62 97
[2020-09-20 15:40] LABS: Hemoglobin 8.8 g/dL (12.0-16.0); Mean Corpuscular Hemoglobin 23.2 pg (25-34); Mean Corpuscular Hgb Conc 30.3 g/dL (32-36); Mean Corpuscular Volume 76.3 fL (80-100); Mean Platelet Volume 9.7 fL (7.4-10.4); Platelet Count 358 K/uL (130-400); RDW Coefficient of Variation 21.1 % (11.5-14.5); White Blood Count 16.56 K/uL (4.8-10.8)
[2020-09-20 15:58] LABS: BUN Creatinine Ratio 19.2 (10-20); Calcium 7.9 mg/dl (8.5-10.1); Creatinine Clr Calc Pharmacy 119.8 ml/min; Est GFR (African American) 127.6 ml/min; Est GFR (Non-African American) 110.1 ml/min; Potassium 3.2 mmol/L (3.5-5.1)
[2020-09-20] MEDS: POTASSIUM CHLORIDE / WTR 10 MEQ/100 ML PLCT IV SCH ×7 (16:25→23:13)
[2020-09-20] MEDS: hydrALAZINE HCL 20 MG/ML VIAL IV PRN (16:30)
--- NOTE | 2020-09-20 19:17 | Hospitalist Progress Note ---
Date of Service September 20, 2020 Assessment & Plan (1) Acute hypoxemic respiratory failure: (2) Acute on chronic heart failure with preserved ejection fraction (HFpEF): (3) Pulmonary edema cardiac cause: (4) Lactic acidosis: (5) Elevated troponin I level: Present on admission with worsening SOB Pt was Sedated and intubated on vent support S/P extubation 09/20 COVID 19 negative CXR showed significant progression of the near diffuse bilateral airspace opacities. ECHO showed showed left ventricular wall motion is normal. EF 60 to 65 % Continue oxygen supplement Continue IV lasix Zithromax an rocephin discontinued Continue monitor closely in the ICU (6) Anemia, iron deficiency: S/P 1 unit PRBC to keep hgb above 9 Continue montor CBC (7) Bicuspid aortic valve: (8) Coronary artery disease: (9) Hx of drug abuse: Tox screen negative. (10) Diabetes mellitus, type 2: Stop PO DM medications. Insulin while inpatient (11) Hypertension: (12) Asthma: (13) DVT prophylaxis: Per critical care team- Heparin Admission and Anticipated Discharge Date Admission Date: September 18, 2020 Subjective Pt was seen and examined for follow up of respiratory failure Pt was extubated today Lying in bed with no acute distress Review of Systems Review of Systems: All systems reviewed & are unremarkable except as noted in Subjective Physical Exam Physical Exam: Head- atraumatic Eyes- PERRL, EOMI, ENT- diminished breath sound Neck- supple, no JVD Lungs- clear to auscultation Heart- regular rhythm; no murmur Abdomen- normal bowel sounds, soft, nontender Extremities- no calf tenderness Neuro- Sedated Skin- warm & dry Results & Data Results & Data ([facility]) Vital Signs (Past 12 Hours) Vital Signs Temp Pulse Pulse Resp BP BP Pulse Ox 09/20/20 18:00 38.0 C H 99 H 58 H 123/80 91 09/20/20 17:21 37.9 C H 109 H 45 H 124/95 92 09/20/20 16:33 162/70 H 09/20/20 16:00 38.0 C H 113 H 51 H 138/67 93 09/20/20 15:00 38.1 C H 113 H 49 H 122/76 93 09/20/20 14:06 38 C H 105 H 40 H 140/87 96 09/20/20 14:00 38.1 C H 117 H 40 H 134/92 89 L 09/20/20 13:00 38.1 C H 109 H 44 H 148/78 H 94 09/20/20 12:30 38.1 C H 107 H 40 H 162/62 H 95 09/20/20 12:15 38.0 C H 105 H 40 H 164/61 H 94 09/20/20 11:58 37.9 C H 106 H 30 H 165/58 H 90 09/20/20 11:00 37.9 C H 106 H 54 H 140/88 97 09/20/20 10:45 108 H 36 H 98 09/20/20 10:00 37.9 C H 107 H 55 H 125/71 97 09/20/20 09:13 115 H 40 H 91 09/20/20 09:12 115 H 40 H 95 09/20/20 09:00 37.9 C H 110 H 33 H 149/81 H 91 09/20/20 08:00 38.0 C H 98 H 121/76 93 09/20/20 07:46 100 H 33 H 91 (1) Diabetes mellitus, type 2 Diabetes mellitus complication status: with unspecified complications Diabe andrea mellitus terminal clerk insulin use: without terminal clerk use Qualified Code(s): E11.8 - Type 2 diabetes mellitus with unspecified complications
[2020-09-20 22:42] LABS: BUN Creatinine Ratio 18.9 (10-20); Calcium 8.1 mg/dl (8.5-10.1); Creatinine Clr Calc Pharmacy 125.7 ml/min; Est GFR (African American) 129.6 ml/min; Est GFR (Non-African American) 111.8 ml/min; Potassium 3.2 mmol/L (3.5-5.1)
[2020-09-20 22:49] LABS: Magnesium 1.8 mg/dl (1.8-2.4); Phosphorus 2.5 mg/dl (2.5-4.9)
[2020-09-20] MEDS ORDERED: SODIUM PHOSPHATE 3 MMOL/1 ML INFUSION IV STA (22:51)
[2020-09-20] MEDS: MAGNESIUM SULFATE / D5W 1 GM/100 ML BAG IV SCH (23:14)
[2020-09-21] MEDS: INSULIN ASPART 100 UNITS/ML 3 ML PEN SC SCH ×6 (00:18→20:11)
[2020-09-21] MEDS: POTASSIUM CHLORIDE / WTR 10 MEQ/100 ML PLCT IV SCH ×11 (00:19→23:29)
[2020-09-21] MEDS: MAGNESIUM SULFATE / D5W 1 GM/100 ML BAG IV SCH (01:18)
[2020-09-21] MEDS: hydrALAZINE HCL 20 MG/ML VIAL IV PRN (03:50)
[2020-09-21 04:03] LABS: iSTAT Arterial Blood Gas HCO3 26 meg/L (19-24); iSTAT Arterial Blood Gas pCO2 36 mmHg (35-46); iSTAT Arterial Blood Gas pH 7.46 (7.35-7.45); iSTAT Arterial Blood Gas pO2 67 mmHg (80-95); iSTAT Carbon Dioxide 27 mmol/L (24-31)
[2020-09-21] MEDS ORDERED: LORazepam 1 MG/2 ML VIAL IV STA (04:14)
[2020-09-21] MEDS ORDERED: STAT IV Infusion **Titration per Protocol STA (05:54)
[2020-09-21] MEDS: DEXMEDETOMIDINE HCL 200 MCG in SODIUM CHLORIDE 0.9% 48 ML IV SCH ×4 (06:04→15:12)
--- NOTE | 2020-09-21 06:59 | CT Scan Report ---
CT SCAN OF THE BRAIN WITHOUT IV CONTRAST CLINICAL HISTORY: Change in mental status. COMPARISON STUDY: CT of the brain dated 01/06/2018. TECHNIQUE: Unenhanced axial CT scan of the brain is performed from the vertex to the skull base. A d ose lowering technique was utilized adhering to the principles of ALARA. The examination is significa ntly compromised by motion artifact. The patient was scanned 3 times in an effort to improve image qu ality. CT DOSE: 1842.80 mGy.cm FINDINGS: Brain parenchyma: The brain parenchyma is normal as visualized. There is no hemorrhage, mass effect, or evidence of acute territorial ischemia by CT criteria. Enriquez-white matter differentiation is preser dylon. No extra-axial fluid collection is seen. Ventricles, sulci, cisterns: Normal in configuration. Intracranial vasculature: There is mild atherosclerotic calcification of the cavernous carotid arteri es. Calvarium: Unremarkable. Sinuses and mastoids: The visualized paranasal sinuses are clear. The mastoid air cells are well pneu matized. Orbits: The bony orbits are grossly intact. IMPRESSION: There is no evidence of hemorrhage, mass effect, or acute territorial ischemia by CT crit pre[place] noting a severely motion compromised examination. ACT 112: Negative or not required by law. Electronically signed by: Ja Villanueva M.D. 09/21/2020 6:58 AM
--- NOTE | 2020-09-21 07:20 | Critical Care Progress Note ---
Date of Service September 21, 2020 Assessment & Plan (1) Hypoxia: (2) Acute CHF (congestive heart failure): (3) Acute on chronic heart failure with preserved ejection fraction (HFpEF): (4) Acute hypoxemic respiratory failure: (5) Pulmonary edema cardiac cause: (6) Lactic acidosis: Impression: 40-year-old female with complex medical history including valvular heart disease, medical noncompliance, obesity, and diastolic heart failure admitted with flash pulmonary edema and profound hypertension. Recommendations: 1. Neurologic: - longstanding history of substance abuse and is on Suboxone in the outpatient setting. -ICU delirium -Zyprexa 5 mg every morning -Precedex infusion for today - CT report reviewed 2. Cardiovascular: -Flash pulmonary edema: -No evidence of endocarditis on STEVEN. 3. Pulmonary: Hypoxic respiratory failure -Aggressive diuresis yesterday -5 days total therapy with azithromycin for possible atypical pneumonia awaiting urinary antigen -500 mg Diamox for respiratory versus contraction alkalosis 4. Renal: -Hypokalemia -Aggressive repletion based off of aggressive diuresis 5. ID: Reinitiate Zithromax for being febrile anticipate total of 5 days of therapy 6. GI: N.p.o. for now due to mental status 7. Endocrine: History of diabetes. Glycemic consult for glycemic control. May require insulin infusion depending on clinical response. 8. Heme-onc: Marked leukocytosis of unclear etiology; however, improving. transition 0.5mg twice daily Lovenox given history of DVT Admission and Anticipated Discharge Date Admission Date: September 18, 2020 Supervising Physician Co-Signing Physician Notes Patient was discussed in multidisciplinary rounds I have personally spent 35 minutes of critical care time in the direct management of this patient. This is a life/limb threatening event. This includes time spent evaluating patient, direct bedside care, chart review, placing orders, interpretation of diagnostic studies, discussion with consultants, patient, and/or family members regarding treatment decisions, as well as other required patient management activities. This time is exclusive of all separately billable procedures, and teaching time and separate from and in addition to any other critical care service time. Subjective Continued delirium Review of Systems Review of Systems: Unobtainable due to cognitive status Physical Exam Physical Exam: General: sedated. nontoxic. Skin: Warm, dry, No stigmata of endocarditis Head: Atraumatic Ears, nose, mouth and throat: airway clear, no upper airway sounds Cardiovascular: Normal peripheral perfusion Respiratory: Tachypnea Gastrointestinal: Non distended Musculoskeletal: No deformity Results & Data Results & Data ([facility]) Vital Signs (Past 12 Hours) Vital Signs Temp Pulse Resp BP Pulse Ox 09/21/20 06:00 37.4 C 98 H 45 H 97 09/21/20 05:00 37.3 C 95 H 55 H 97 09/21/20 04:00 37.4 C 96 H 34 H 93 09/21/20 03:00 37.4 C 84 40 H 97 09/21/20 02:00 37.6 C H 85 52 H 96 09/21/20 01:00 37.7 C H 94 H 24 99 09/21/20 00:35 96 H 09/21/20 00:00 37.8 C H 98 H 17 96 09/20/20 23:00 37.8 C H 95 H 34 H 95 09/20/20 22:02 106 H 09/20/20 22:00 37.9 C H 92 H 51 H 95 09/20/20 21:02 38.0 C H 102 H 31 H 97 09/20/20 21:01 38.0 C H 108 H 18 139/113 H 97 09/20/20 20:00 38.0 C H 106 H 38 H 147/88 H 95 Laboratory Results 09/21/20 09/21/20 09/21/20 Range/Units 03:50 03:47 00:10 WBC (4.8-10.8) K/uL RBC (4.2-5.4) M/uL Hgb (12.0-16.0) g/dL Hct (37-47) % MCV (80-100) fL MCH (25-34) pg MCHC (32-36) g/dL RDW Std Deviation (36.4-46.3) fL RDW Coeff of Hannah (11.5-14.5) % Plt Count (130-400) K/uL MPV (7.4-10.4) fL POC pH 7.46 H (7.35-7.45) POC pCO2 36 (35-46) mmHg POC pO2 67 L (80-95) mmHg POC HCO3 26 H (19-24) quinn/L POC Total CO2 27 (24-31) mmol/L POC Base Excess 2.0 H (-9-1.8) quinn/L POC ABG O2 Sat 94.0 (90-95) % Sodium (136-145) mmol/L Potassium (3.5-5.1) mmol/L Chloride (98-107) mmol/L Carbon Dioxide (21-32) mmol/L Anion Gap (3-11) BUN (7-18) mg/dl Creatinine (0.6-1.2) mg/dl Est Cr Clr Drug Dosing ml/min Est GFR ( Amer) ml/min Est GFR (Non-Af Amer) ml/min BUN/Creatinine Ratio (10-20) Glucose (70-99) mg/dl POC Glucose 143 H 149 H (70-99) mg/dl Calcium (8.5-10.1) mg/dl Phosphorus (2.5-4.9) mg/dl Magnesium (1.8-2.4) mg/dl Blood Type Antibody Screen Crossmatch 09/20/20 09/20/20 09/20/20 Range/Units 22:20 20:33 15:28 WBC (4.8-10.8) K/uL RBC (4.2-5.4) M/uL Hgb (12.0-16.0) g/dL Hct (37-47) % MCV (80-100) fL MCH (25-34) pg MCHC (32-36) g/dL RDW Std Deviation (36.4-46.3) fL RDW Coeff of Hannah (11.5-14.5) % Plt Count (130-400) K/uL MPV (7.4-10.4) fL POC pH (7.35-7.45) POC pCO2 (35-46) mmHg POC pO2 (80-95) mmHg POC HCO3 (19-24) quinn/L POC Total CO2 (24-31) mmol/L POC Base Excess (-9-1.8) quinn/L POC ABG O2 Sat (90-95) % Sodium 141 143 (136-145) mmol/L Potassium 3.2 L 3.2 L (3.5-5.1) mmol/L Chloride 109 H 110 H (98-107) mmol/L Carbon Dioxide 26 26 (21-32) mmol/L Anion Gap 7.0 7.0 (3-11) BUN 12 12 (7-18) mg/dl Creatinine 0.61 0.64 (0.6-1.2) mg/dl Est Cr Clr Drug Dosing 125.7 119.8 ml/min Est GFR ( Amer) 129.6 127.6 ml/min Est GFR (Non-Af Amer) 111.8 110.1 ml/min BUN/Creatinine Ratio 18.9 19.2 (10-20) Glucose 151 H 116 H (70-99) mg/dl POC Glucose 146 H (70-99) mg/dl Calcium 8.1 L 7.9 L (8.5-10.1) mg/dl Phosphorus 2.5 (2.5-4.9) mg/dl Magnesium 1.8 (1.8-2.4) mg/dl Blood Type Antibody Screen Crossmatch 09/20/20 09/20/20 09/20/20 Range/Units 15:28 13:26 11:26 WBC 16.56 H (4.8-10.8) K/uL RBC 3.80 L (4.2-5.4) M/uL Hgb 8.8 L (12.0-16.0) g/dL Hct 29.0 L (37-47) % MCV 76.3 L (80-100) fL MCH 23.2 L (25-34) pg MCHC 30.3 L (32-36) g/dL RDW Std Deviation 58.0 H (36.4-46.3) fL RDW Coeff of Hannah 21.1 H (11.5-14.5) % Plt Count 358 (130-400) K/uL MPV 9.7 (7.4-10.4) fL POC pH 7.47 H (7.35-7.45) POC pCO2 38 (35-46) mmHg POC pO2 64 L (80-95) mmHg POC HCO3 28 H (19-24) quinn/L POC Total CO2 29 (24-31) mmol/L POC Base Excess 4.0 H (-9-1.8) quinn/L POC ABG O2 Sat 93.0 (90-95) % Sodium (136-145) mmol/L Potassium (3.5-5.1) mmol/L Chloride (98-107) mmol/L Carbon Dioxide (21-32) mmol/L Anion Gap (3-11) BUN (7-18) mg/dl Creatinine (0.6-1.2) mg/dl Est Cr Clr Drug Dosing ml/min Est GFR ( Amer) ml/min Est GFR (Non-Af Amer) ml/min BUN/Creatinine Ratio (10-20) Glucose (70-99) mg/dl POC Glucose 125 H (70-99) mg/dl Calcium (8.5-10.1) mg/dl Phosphorus (2.5-4.9) mg/dl Magnesium (1.8-2.4) mg/dl Blood Type Antibody Screen Crossmatch 09/20/20 09/20/20 Range/Units 08:07 04:29 WBC (4.8-10.8) K/uL RBC (4.2-5.4) M/uL Hgb (12.0-16.0) g/dL Hct (37-47) % MCV (80-100) fL MCH (25-34) pg MCHC (32-36) g/dL RDW Std Deviation (36.4-46.3) fL RDW Coeff of Hannah (11.5-14.5) % Plt Count (130-400) K/uL MPV (7.4-10.4) fL POC pH (7.35-7.45) POC pCO2 (35-46) mmHg POC pO2 (80-95) mmHg POC HCO3 (19-24) quinn/L POC Total CO2 (24-31) mmol/L POC Base Excess (-9-1.8) quinn/L POC ABG O2 Sat (90-95) % Sodium (136-145) mmol/L Potassium (3.5-5.1) mmol/L Chloride (98-107) mmol/L Carbon Dioxide (21-32) mmol/L Anion Gap (3-11) BUN (7-18) mg/dl Creatinine (0.6-1.2) mg/dl Est Cr Clr Drug Dosing ml/min Est GFR ( Amer) ml/min Est GFR (Non-Af Amer) ml/min BUN/Creatinine Ratio (10-20) Glucose (70-99) mg/dl POC Glucose 112 H (70-99) mg/dl Calcium (8.5-10.1) mg/dl Phosphorus (2.5-4.9) mg/dl Magnesium (1.8-2.4) mg/dl Blood Type O Positive Antibody Screen NEGATIVE Crossmatch See Detail Coding Level of Care Code Critical Care 1st 30-74 mins Diagnoses Hypoxia R09.02 Acute CHF (congestive heart failure) I50.9 Acute on chronic heart failure with preserved ejection fraction (HFpEF) I50.33 Acute hypoxemic respiratory failure J96.01 Pulmonary edema cardiac cause I50.1 Lactic acidosis E87.2
[2020-09-21 07:46] LABS: iSTAT Arterial Blood Gas HCO3 23 meg/L (19-24); iSTAT Arterial Blood Gas pCO2 30 mmHg (35-46); iSTAT Arterial Blood Gas pO2 51 mmHg (80-95); iSTAT Carbon Dioxide 24 mmol/L (24-31)
[2020-09-21] MEDS: OLANZapine ZYDIS 5 MG ORALLY DIS. TAB PO SCH (08:00)
[2020-09-21] MEDS: ENOXAPARIN INJ 40 MG/0.4 ML SYR SQ SCH ×2 (08:10→20:38)
[2020-09-21] MEDS: INSULIN GLARGINE SOLOSTAR 100 UNITS/ML 3 ML PEN SC SCH (08:11)
[2020-09-21] MEDS: FAMOTIDINE 20 MG in SYRINGE 3 ML IV SCH ×2 (08:36→20:38)
[2020-09-21] MEDS ORDERED: acetaZOLAMIDE 500 MG in SYRINGE 0 ML IV ONE (09:45)
[2020-09-21 09:47] LABS: Basophils # (auto) 0.01 K/uL (0-0.2); Basophils % (auto) 0.1 %; Eosinophils # (auto) 0.22 K/uL (0-0.5); Eosinophils % (auto) 1.5 %; Hematocrit (blood only) 29.1 % (37-47); Hemoglobin 8.9 g/dL (12.0-16.0); Immature Granulocytes # (auto) 0.07 K/uL (0.00-0.02); Immature Granulocytes % (auto) 0.5 %; Lymphocytes # (auto) 1.63 K/uL (1.2-3.4); Mean Corpuscular Hemoglobin 23.1 pg (25-34); Mean Corpuscular Hgb Conc 30.6 g/dL (32-36); Mean Corpuscular Volume 75.6 fL (80-100); Mean Platelet Volume 9.7 fL (7.4-10.4); Monocytes # (auto) 0.74 K/uL (0.11-0.59); Neutrophils % (auto) 81.9 %; Platelet Count 361 K/uL (130-400); RDW Coefficient of Variation 20.6 % (11.5-14.5); RDW Standard Deviation 56.5 fL (36.4-46.3); Red Blood Count 3.85 M/uL (4.2-5.4); White Blood Count 14.77 K/uL (4.8-10.8)
[2020-09-21 10:09] LABS: Albumin Level 2.8 gm/dl (3.4-5.0); BUN Creatinine Ratio 24.4 (10-20); Bilirubin Direct 0.3 mg/dl (0-0.2); Bilirubin,Total 0.7 mg/dl (0.2-1); Calcium 7.9 mg/dl (8.5-10.1); Creatinine Clr Calc Pharmacy 162.7 ml/min; Est GFR (African American) 142.2 ml/min; Est GFR (Non-African American) 122.7 ml/min; Magnesium 2.5 mg/dl (1.8-2.4); Phosphorus 2.2 mg/dl (2.5-4.9); Potassium 4.1 mmol/L (3.5-5.1); Total Protein 6.9 gm/dl (6.4-8.2)
[2020-09-21] MEDS: FUROSEMIDE 40 MG in SYRINGE 0 ML IV SCH ×2 (10:12→17:59)
[2020-09-21] MEDS: ASPIRIN 81 MG CHEW NG SCH (10:13)
[2020-09-21] MEDS: CLOPIDOGREL BISULFATE 75 MG TAB PEG SCH (10:13)
[2020-09-21] MEDS: AZITHROMYCIN 500 MG in DEXTROSE 5% 250 ML IV SCH (10:13)
[2020-09-21] MEDS: ATORVASTATIN 40 MG TAB NG SCH (10:13)
[2020-09-21 10:24] LABS: Anisocytosis Present
[2020-09-21] MEDS: ICU ELECTROLYTE REPLACEMENT PROTOCOL SCH ×2 (10:29→19:13)
[2020-09-21] MEDS ORDERED: SODIUM PHOSPHATE 3 MMOL/1 ML 5 ML VIAL IV ONE (10:31)
[2020-09-21] MEDS ORDERED: SODIUM PHOSPHATE 15 MMOL in SODIUM CHLORIDE 0.9% 250 ML IV ONE ×2 (10:45)
--- NOTE | 2020-09-21 11:09 | Cardiology Progress Note ---
Date of Service September 21, 2020 Assessment & Plan (1) Acute hypoxemic respiratory failure: (2) Pulmonary edema cardiac cause: (3) Lactic acidosis: (4) Aortic stenosis: (5) S/P coronary artery stent placement: 40-year-old female presents with respiratory failure, has been found to have significant lactic acidosis, minimally elevated troponin I, and abnormal chest x-ray consistent with pulmonary edema from congestive heart failure or atypical pneumonia. Her SARS-CoV-2 PCR test is negative. STEVEN performed prior to anticipated extubation. No valvular lesions consistent with endocarditis identified. Upon further visualization and planimetry aortic stenosis is moderate with a moderately calcified trileaflet aortic valve. No indication for intervention of the aortic valve at this time. Diuresing well with IV Lasix. Now negative over 7 L. BUN/creatinine ratio remains low, difficult to assess volume status by physical exam. Would continue to diurese until we see a prerenal trend on laboratory tests. Hemoglobin improved status post transfusion. I suspect this will help her cardi ac condition improved. We will obviously defer airway management to our critical care colleagues. Admission and Anticipated Discharge Date Admission Date: September 18, 2020 Subjective Patient seen and examined, chart reviewed. Currently on nasal cannula, unresponsive to verbal stimuli and tachypneic. Telemetry reviewed: Normal sinus rhythm/sinus tachycardia Review of Systems Review of Systems: Unobtainable due to reduced consciousness Physical Exam Physical Exam: General: Not responding to verbal stimuli and difficulty on positive pressure ventilation HEENT: Normocephalic, atraumatic. Pupils equal, round and reactive to light and accommodation. Extraocular muscles are intact. Anicteric sclera. Moist m ucous membranes. Neck: No JVD. No bruit. Cardiovascular: Regular. Positive S-4. Normal S-1 and S-2. No S-3. No murmurs or rubs. Pulmonary: Scattered rhonchi. Abdomen: Bowel sounds x 4, soft. No rebound, guarding or tenderness. No organomegaly. Extremities: No clubbing, cyanosis or edema. +2 pedal pulses bilaterally. Skin: Warm and dry. Results & Data ([facility]) Vital Signs (Past 12 Hours) Vital Signs Temp Pulse Resp Pulse Ox Pulse Ox 09/21/20 07:48 98 H 91 09/21/20 06:00 37.4 C 98 H 45 H 97 09/21/20 05:00 37.3 C 95 H 55 H 97 09/21/20 04:00 37.4 C 96 H 34 H 93 09/21/20 03:00 37.4 C 84 40 H 97 09/21/20 02:00 37.6 C H 85 52 H 96 09/21/20 01:00 37.7 C H 94 H 24 99 09/21/20 00:35 96 H 09/21/20 00:00 37.8 C H 98 H 17 96
[2020-09-21] MEDS: levETIRAcetam 500 MG in 0.9 % SODIUM CHLORIDE 100 ML IV SCH ×2 (11:11→20:39)
--- NOTE | 2020-09-21 11:17 | Ultrasound Report ---
ULTRASOUND BILATERAL LOWER EXTREMITY VENOUS CLINICAL HISTORY: Fever of unknown origin. COMPARISON STUDY: Bilateral lower extremity venous ultrasound dated 09/02/2017. TECHNIQUE: Portable real-time grayscale and color Doppler sonography of the deep veins of the right a nd left lower extremity was performed from the inguinal crease to the calf. Compression and augmentat ion were utilized. FINDINGS: There is no sonographic evidence of deep venous thrombosis identified in the right or left lower extremity. The common femoral, superficial femoral, and popliteal veins are patent and normally compressible bilaterally. The greater saphenous vein and the profunda femoris vein at the junction w ith the common femoral vein are clear in both legs. The visualized calf veins are patent bilaterally. IMPRESSION: There is no sonographic evidence of deep venous thrombosis identified in the right or lef t lower extremity. ACT 112: Negative or not required by law. Electronically signed by: Ja Villanueva M.D. 09/21/2020 11:16 AM
--- NOTE | 2020-09-21 13:49 | Electrocardiogram Report ---
Test Reason : Blood Pressure : / mmHG Vent. Rate : 094 BPM Atrial Rate : 094 BPM P-R Int : 142 ms QRS Dur : 090 ms QT Int : 422 ms P-R-T Axes : 051 059 028 degrees QTc Int : 527 ms Poor data quality, interpretation may be adversely affected Normal sinus rhythm Prolonged QT Abnormal ECG When compared with ECG of 20-SEP-2020 02:23, Nonspecific T wave abnormality, improved in Inferior leads T wave inversion no longer evident in Lateral leads Confirmed by Carlos Goodman [id number]) on 09/21/2020 1:49:18 PM Referred By: REFERRED SELF Confirmed By:Carlos Goodman
[2020-09-21] MEDS: buprenorphine HCL 2 MG SUBL SL SCH ×2 (14:31→20:38)
--- NOTE | 2020-09-21 16:38 | Hospitalist Progress Note ---
Date of Service September 21, 2020 Assessment & Plan (1) Acute hypoxemic respiratory failure: (2) Acute on chronic heart failure with preserved ejection fraction (HFpEF): (3) Pulmonary edema cardiac cause: (4) Lactic acidosis: (5) Elevated troponin I level: Present on admission with worsening SOB /acute hypoxemic resp failure /negative COVID 19 screen due to acute decompensated diastolic CHF required mechanical ventilation CXR showed significant progression of the near diffuse bilateral airspace opacities. ECHO showed showed left ventricular wall motion is normal. EF 60 to 65 % treated with IV Lasix /appreciate input from Cardiology S/P extubation 09/20 resp status stable on 02 via nasal canula altered mental status /metabolic encephalopathy : possible due to drug withdrawal( pt is on chronic Suboxone tx ) vs ICU delirium was placed on IV Precedex gtt acute confusion (6) Anemia, iron deficiency: S/P 1 unit of PRBc tx to keep hgb above 9 Continue monitor CBC no evidence of GI bleed (7) Bicuspid aortic valve: (8) Coronary artery disease: (9) Hx of drug abuse: Tox screen negative. (10) Diabetes mellitus, type 2: Stop PO DM medications. Insulin while inpatient (11) Hypertension: (12) Asthma: (13) DVT prophylaxis: Per critical care team- Heparin Full code Admission and Anticipated Discharge Date Admission Date: September 18, 2020 Subjective Follow up visit for acute hypoxemic resp failure /acute on chronic decompensated CHF with diastolic dysfunction ,confusion pt remains very confused , arousable , not able to follow any command on 2 L 02 via nasal canula has been Off Iv precedex gtt for several hours Review of Systems Review of Systems: All systems reviewed & are unremarkable except as noted in Subjective Physical Exam Physical Exam: Physical exam: General: chronically ill appearing , confused , disoriented HEENT: ani icteric sclera Heart: Regular S1-S2, tachycardic Lungs: diminished , basilar rales Abdomen: Soft Neuro: disoriented , moving all limbs , not able to follow command Results & Data Results & Data ([facility]) Vital Signs (Past 12 Hours) Vital Signs Temp Pulse Resp Pulse Ox Pulse Ox 09/21/20 13:30 37.9 C H 92 H 32 H 97 09/21/20 13:00 37.9 C H 90 33 H 98 09/21/20 12:30 37.9 C H 91 H 22 96 09/21/20 12:00 37.9 C H 89 40 H 97 09/21/20 11:30 37.9 C H 81 37 H 96 09/21/20 11:00 38.0 C H 82 24 96 09/21/20 10:30 38.0 C H 83 34 H 96 09/21/20 10:00 37.9 C H 80 44 H 99 09/21/20 09:30 37.8 C H 88 44 H 98 09/21/20 09:00 37.7 C H 84 47 H 96 09/21/20 08:30 37.5 C 102 H 18 94 09/21/20 08:00 37.4 C 93 H 52 H 92 09/21/20 07:48 98 H 91 09/21/20 07:30 37.4 C 108 H 23 89 L 09/21/20 07:00 108 H 23 92 09/21/20 06:30 103 H 20 96 09/21/20 06:00 37.4 C 98 H 45 H 97 09/21/20 05:00 37.3 C 95 H 55 H 97 (1) Diabetes mellitus, type 2 Diabetes mellitus complication status: with unspecified complications Diabetes mellitus correction insulin use: without predatory animal exterminator use Qualified Code(s): E11.8 - Type 2 diabetes mellitus with unspecified complications
[2020-09-21 18:40] LABS: Potassium 3.5 mmol/L (3.5-5.1)
[2020-09-21 18:45] LABS: BUN Creatinine Ratio 18.3 (10-20); Calcium 8.1 mg/dl (8.5-10.1); Creatinine Clr Calc Pharmacy 113.4 ml/min; Est GFR (African American) 126.3 ml/min
[2020-09-21 18:48] LABS: Magnesium 2.2 mg/dl (1.8-2.4); Phosphorus 3.1 mg/dl (2.5-4.9)
[2020-09-22] MEDS: INSULIN ASPART 100 UNITS/ML 3 ML PEN SC SCH ×7 (00:38→21:13)
[2020-09-22 04:46] LABS: Basophils # (auto) 0.01 K/uL (0-0.2); Basophils % (auto) 0.1 %; Eosinophils # (auto) 0.48 K/uL (0-0.5); Eosinophils % (auto) 3.3 %; Hematocrit (blood only) 30.5 % (37-47); Hemoglobin 9.2 g/dL (12.0-16.0); Immature Granulocytes # (auto) 0.11 K/uL (0.00-0.02); Immature Granulocytes % (auto) 0.8 %; Lymphocytes # (auto) 2.92 K/uL (1.2-3.4); Mean Corpuscular Hemoglobin 23.1 pg (25-34); Mean Corpuscular Hgb Conc 30.2 g/dL (32-36); Mean Corpuscular Volume 76.6 fL (80-100); Mean Platelet Volume 9.4 fL (7.4-10.4); Monocytes # (auto) 1.13 K/uL (0.11-0.59); Monocytes % (auto) 7.8 %; Neutrophils # (auto) 9.92 K/uL (1.4-6.5); Platelet Count 408 K/uL (130-400); RDW Coefficient of Variation 20.8 % (11.5-14.5); Red Blood Count 3.98 M/uL (4.2-5.4); White Blood Count 14.57 K/uL (4.8-10.8)
[2020-09-22 05:01] LABS: BUN Creatinine Ratio 22.7 (10-20); Calcium 8.1 mg/dl (8.5-10.1); Creatinine Clr Calc Pharmacy 112.3 ml/min; Est GFR (African American) 126.9 ml/min; Est GFR (Non-African American) 109.5 ml/min; Magnesium 2.4 mg/dl (1.8-2.4); Phosphorus 3.1 mg/dl (2.5-4.9); Potassium 3.7 mmol/L (3.5-5.1)
[2020-09-22] MEDS: ICU ELECTROLYTE REPLACEMENT PROTOCOL SCH (05:09)
[2020-09-22 05:15] LABS: Anisocytosis Present
[2020-09-22] MEDS: POTASSIUM CHLORIDE / WTR 10 MEQ/100 ML PLCT IV SCH ×4 (05:26→08:28)
--- NOTE | 2020-09-22 07:26 | Critical Care Progress Note ---
Date of Service September 22, 2020 Assessment & Plan (1) Hypoxia: (2) Acute CHF (congestive heart failure): (3) Acute on chronic heart failure with preserved ejection fraction (HFpEF): (4) Acute hypoxemic respiratory failure: (5) Pulmonary edema cardiac cause: (6) Lactic acidosis: Impression: 40-year-old female with complex medical history including valvular heart disease, medical noncompliance, obesity, and diastolic heart failure admitted with flash pulmonary edema and profound hypertension. Recommendations: 1. Neurologic: - longstanding history of substance abuse and is on Suboxone in the outpatient setting. - ICU delirium -Zyprexa 5 mg every morning -Restarted oral Suboxone - CT report reviewed 2. Cardiovascular: -Flash pulmonary edema: -No evidence of endocarditis on STEVEN. 3. Pulmonary: Hypoxic respiratory failure -Aggressive diuresis yesterday -5 days total therapy with azithromycin for possible atypical pneumonia awaiting urinary antigen which is negative 4. Renal: -Hypokalemia: Improved 5. ID: Febrile illness - Zithromax for being febrile total of 5 days of therapy after today's dose -Discontinue [place] today -Check UA no obvious indication for culture history of elevated white counts previously -Repeat blood cultures, procalcitonin mildly elevated 6. GI: N.p.o. for now due to mental status -Speech therapy consult 7. Endocrine: History of diabetes. Glycemic consult for glycemic control. May require insulin infusion depending on clinical response. 8. Heme-onc: Marked leukocytosis of unclear etiology; however, improving. transition 0.5mg twice daily Lovenox given history of DVT Critical care needs have resolved stable for downgrade out of ICU to remote telemetry Admission and Anticipated Discharge Date Admission Date: September 18, 2020 Subjective Continued disorientation however improving Review of Systems Review of Systems: Unobtainable due to cognitive status Physical Exam Physical Exam: General: sedated. nontoxic. Skin: Warm, dry, No stigmata of endocarditis Head: Atraumatic Ears, nose, mouth and throat: airway clear, no upper airway sounds Cardiovascular: Normal peripheral perfusion Respiratory: No respiratory distress Gastrointestinal: Non distended Musculoskeletal: No deformity Results & Data Results & Data ([facility]) Vital Signs (Past 12 Hours) Vital Signs Temp Pulse Resp BP Pulse Ox 09/22/20 04:00 37.7 C H 87 27 H 89 L 05/27/21 02:00 37.8 C H 78 24 92 09/22/20 00:00 37.9 C H 89 28 H 92 09/21/20 22:00 38.0 C H 95 H 31 H 93 09/21/20 21:00 38.0 C H 88 30 H 92 09/21/20 20:30 37.9 C H 93 H 30 H 92 09/21/20 20:26 37.9 C H 94 H 23 132/72 95 09/21/20 20:00 37.9 C H 88 29 H 156/61 H 93 09/21/20 19:30 37.9 C H 85 27 H 92 Laboratory Results 09/22/20 09/22/20 09/22/20 Range/Units 07:28 04:07 04:07 WBC 14.57 H (4.8-10.8) K/uL RBC 3.98 L (4.2-5.4) M/uL Hgb 9.2 L (12.0-16.0) g/dL Hct 30.5 L (37-47) % MCV 76.6 L (80-100) fL MCH 23.1 L (25-34) pg MCHC 30.2 L (32-36) g/dL RDW Std Deviation 58.0 H (36.4-46.3) fL RDW Coeff of Hannah 20.8 H (11.5-14.5) % Plt Count 408 H (130-400) K/uL MPV 9.4 (7.4-10.4) fL Immature Gran % (Auto) 0.8 % Neut % (Auto) 68.0 % Lymph % (Auto) 20.0 % Jerauld % (Auto) 7.8 % Eos % (Auto) 3.3 % Baso % (Auto) 0.1 % Neut # (Auto) 9.92 H (1.4-6.5) K/uL Lymph # (Auto) 2.92 (1.2-3.4) K/uL J[place] # (Auto) 1.13 H (0.11-0.59) K/uL Eos # (Auto) 0.48 (0-0.5) K/uL Baso # (Auto) 0.01 (0-0.2) K/uL Immature Gran # (Auto) 0.11 H (0.00-0.02) K/uL Anisocytosis Present Sodium 145 (136-145) mmol/L Potassium 3.7 (3.5-5.1) mmol/L Chloride 115 H (98-107) mmol/L Carbon Dioxide 21 (21-32) mmol/L Anion Gap 9.0 (3-11) BUN 15 (7-18) mg/dl Creatinine 0.65 (0.6-1.2) mg/dl Est Cr Clr Drug Dosing 112.3 ml/min Est GFR ( Amer) 126.9 ml/min Est GFR (Non-Af Amer) 109.5 ml/min BUN/Creatinine Ratio 22.7 H (10-20) Glucose 92 (70-99) mg/dl POC Glucose 89 (70-99) mg/dl Calcium 8.1 L (8.5-10.1) mg/dl Phosphorus 3.1 (2.5-4.9) mg/dl Magnesium 2.4 (1.8-2.4) mg/dl Total Bilirubin (0.2-1) mg/dl Direct Bilirubin (0-0.2) mg/dl AST (15-37) U/L ALT (12-78) U/L Alkaline Phosphatase (45-117) U/L Total Protein (6.4-8.2) gm/dl Albumin (3.4-5.0) gm/dl Urine Legionella Ag 09/22/20 09/22/20 09/21/20 Range/Units 03:52 00:35 20:06 WBC (4.8-10.8) K/uL RBC (4.2-5.4) M/uL Hgb (12.0-16.0) g/dL Hct (37-47) % MCV (80-100) fL MCH (25-34) pg MCHC (32-36) g/dL RDW Std Deviation (36.4-46.3) fL RDW Coeff of Hannah (11.5-14.5) % Plt Count (130-400) K/uL MPV (7.4-10.4) fL Immature Gran % (Auto) % Neut % (Auto) % Lymph % (Auto) % J[place] % (Auto) % Eos % (Auto) % Baso % (Auto) % Neut # (Auto) (1.4-6.5) K/uL Lymph # (Auto) (1.2-3.4) K/uL J[place] # (Auto) (0.11-0.59) K/uL Eos # (Auto) (0-0.5) K/uL Baso # (Auto) (0-0.2) K/uL Immature Gran # (Auto) (0.00-0.02) K/uL Anisocytosis Sodium (136-145) mmol/L Potassium (3.5-5.1) mmol/L Chloride (98-107) mmol/L Carbon Dioxide (21-32) mmol/L Anion Gap (3-11) BUN (7-18) mg/dl Creatinine (0.6-1.2) mg/dl Est Cr Clr Drug Dosing ml/min Est GFR ( Amer) ml/min Est GFR (Non-Af Amer) ml/min BUN/Creatinine Ratio (10-20) Glucose (70-99) mg/dl POC Glucose 101 H 89 88 (70-99) mg/dl Calcium (8.5-10.1) mg/dl Phosphorus (2.5-4.9) mg/dl Magnesium (1.8-2.4) mg/dl Total Bilirubin (0.2-1) mg/dl Direct Bilirubin (0-0.2) mg/dl AST (15-37) U/L ALT (12-78) U/L Alkaline Phosphatase (45-117) U/L Total Protein (6.4-8.2) gm/dl Albumin (3.4-5.0) gm/dl Urine Legionella Ag 09/21/20 09/21/20 09/21/20 Range/Units 18:18 18:18 16:28 WBC (4.8-10.8) K/uL RBC (4.2-5.4) M/uL Hgb (12.0-16.0) g/dL Hct (37-47) % MCV (80-100) fL MCH (25-34) pg MCHC (32-36) g/dL RDW Std Deviation (36.4-46.3) fL RDW Coeff of Hannah (11.5-14.5) % Plt Count (130-400) K/uL MPV (7.4-10.4) fL Immature Gran % (Auto) % Neut % (Auto) % Lymph % (Auto) % J[place] % (Auto) % Eos % (Auto) % Baso % (Auto) % Neut # (Auto) (1.4-6.5) K/uL Lymph # (Auto) (1.2-3.4) K/uL [place] # (Auto) (0.11-0.59) K/uL Eos # (Auto) (0-0.5) K/uL Baso # (Auto) (0-0.2) K/uL Immature Gran # (Auto) (0.00-0.02) K/uL Anisocytosis Sodium 142 (136-145) mmol/L Potassium 3.5 (3.5-5.1) mmol/L Chloride 112 H (98-107) mmol/L Carbon Dioxide 22 (21-32) mmol/L Anion Gap 8.0 (3-11) BUN 12 (7-18) mg/dl Creatinine 0.66 (0.6-1.2) mg/dl Est Cr Clr Drug Dosing 113.4 ml/min Est GFR ( Amer) 126.3 ml/min Est GFR (Non-Af Amer) 109.0 ml/min BUN/Creatinine Ratio 18.3 (10-20) Glucose 102 H (70-99) mg/dl POC Glucose 105 H (70-99) mg/dl Calcium 8.1 L (8.5-10.1) mg/dl Phosphorus 3.1 Cancelled (2.5-4.9) mg/dl Magnesium 2.2 Cancelled (1.8-2.4) mg/dl Total Bilirubin (0.2-1) mg/dl Direct Bilirubin (0-0.2) mg/dl AST (15-37) U/L ALT (12-78) U/L Alkaline Phosphatase (45-117) U/L Total Protein (6.4-8.2) gm/dl Albumin (3.4-5.0) gm/dl Urine Legionella Ag 09/21/20 09/21/20 09/21/20 Range/Units 12:09 09:27 09:27 WBC 14.77 H (4.8-10.8) K/uL RBC 3.85 L (4.2-5.4) M/uL Hgb 8.9 L (12.0-16.0) g/dL Hct 29.1 L (37-47) % MCV 75.6 L (80-100) fL MCH 23.1 L (25-34) pg MCHC 30.6 L (32-36) g/dL RDW Std Deviation 56.5 H (36.4-46.3) fL RDW Coeff of Hannah 20.6 H (11.5-14.5) % Plt Count 361 (130-400) K/uL MPV 9.7 (7.4-10.4) fL Immature Gran % (Auto) 0.5 % Neut % (Auto) 81.9 % Lymph % (Auto) 11.0 % J[place] % (Auto) 5.0 % Eos % (Auto) 1.5 % Baso % (Auto) 0.1 % Neut # (Auto) 12.10 H (1.4-6.5) K/uL Lymph # (Auto) 1.63 (1.2-3.4) K/uL [place] # (Auto) 0.74 H (0.11-0.59) K/uL Eos # (Auto) 0.22 (0-0.5) K/uL Baso # (Auto) 0.01 (0-0.2) K/uL Immature Gran # (Auto) 0.07 H (0.00-0.02) K/uL Anisocytosis Present Sodium 143 (136-145) mmol/L Potassium 4.1 D (3.5-5.1) mmol/L Chloride 112 H (98-107) mmol/L Carbon Dioxide 24 (21-32) mmol/L Anion Gap 7.0 (3-11) BUN 11 (7-18) mg/dl Creatinine 0.46 L (0.6-1.2) mg/dl Est Cr Clr Drug Dosing 162.7 ml/min Est GFR ( Amer) 142.2 ml/min Est GFR (Non-Af Amer) 122.7 ml/min BUN/Creatinine Ratio 24.4 H (10-20) Glucose 155 H (70-99) mg/dl POC Glucose 165 H (70-99) mg/dl Calcium 7.9 L (8.5-10.1) mg/dl Phosphorus 2.2 L (2.5-4.9) mg/dl Magnesium 2.5 H (1.8-2.4) mg/dl Total Bilirubin 0.7 (0.2-1) mg/dl Direct Bilirubin 0.3 H (0-0.2) mg/dl AST 21 (15-37) U/L ALT 14 (12-78) U/L Alkaline Phosphatase 66 (45-117) U/L Total Protein 6.9 (6.4-8.2) gm/dl Albumin 2.8 L (3.4-5.0) gm/dl Urine Legionella Ag 09/18/20 Range/Units 12:00 WBC (4.8-10.8) K/uL RBC (4.2-5.4) M/uL Hgb (12.0-16.0) g/dL Hct (37-47) % MCV (80-100) fL MCH (25-34) pg MCHC (32-36) g/dL RDW Std Deviation (36.4-46.3) fL RDW Coeff of Hannah (11.5-14.5) % Plt Count (130-400) K/uL MPV (7.4-10.4) fL Immature Gran % (Auto) % Neut % (Auto) % Lymph % (Auto) % [place] % (Auto) % Eos % (Auto) % Baso % (Auto) % Neut # (Auto) (1.4-6.5) K/uL Lymph # (Auto) (1.2-3.4) K/uL [place] # (Auto) (0.11-0.59) K/uL Eos # (Auto) (0-0.5) K/uL Baso # (Auto) (0-0.2) K/uL Immature Gran # (Auto) (0.00-0.02) K/uL Anisocytosis Sodium (136-145) mmol/L Potassium (3.5-5.1) mmol/L Chloride (98-107) mmol/L Carbon Dioxide (21-32) mmol/L Anion Gap (3-11) BUN (7-18) mg/dl Creatinine (0.6-1.2) mg/dl Est Cr Clr Drug Dosing ml/min Est GFR ( Amer) ml/min Est GFR (Non-Af Amer) ml/min BUN/Creatinine Ratio (10-20) Glucose (70-99) mg/dl POC Glucose (70-99) mg/dl Calcium (8.5-10.1) mg/dl Phosphorus (2.5-4.9) mg/dl Magnesium (1.8-2.4) mg/dl Total Bilirubin (0.2-1) mg/dl Direct Bilirubin (0-0.2) mg/dl AST (15-37) U/L ALT (12-78) U/L Alkaline Phosphatase (45-117) U/L Total Protein (6.4-8.2) gm/dl Albumin (3.4-5.0) gm/dl Urine Legionella Ag SEE NOTE Coding Level of Care Code 30342 Subseq Hosp Care Lvl 3 Diagnoses Hypoxia R09.02 Acute CHF (congestive heart failure) I50.9 Acute on chronic heart failure with preserved ejection fraction (HFpEF) I50.33 Acute hypoxemic respiratory failure J96.01 Pulmonary edema cardiac cause I50.1 Lactic acidosis E87.2
[2020-09-22] MEDS: FAMOTIDINE 20 MG in SYRINGE 3 ML IV SCH ×2 (07:52→21:13)
[2020-09-22] MEDS: DEXMEDETOMIDINE HCL 200 MCG in SODIUM CHLORIDE 0.9% 48 ML IV SCH (07:52)
[2020-09-22] MEDS: ENOXAPARIN INJ 40 MG/0.4 ML SYR SQ SCH ×2 (07:52→21:12)
[2020-09-22] MEDS: ATORVASTATIN 40 MG TAB NG SCH (07:53)
[2020-09-22] MEDS: FUROSEMIDE 40 MG in SYRINGE 0 ML IV SCH ×2 (07:53→16:44)
[2020-09-22] MEDS: ASPIRIN 81 MG CHEW NG SCH (07:53)
[2020-09-22] MEDS: CLOPIDOGREL BISULFATE 75 MG TAB PEG SCH (07:54)
[2020-09-22] MEDS: buprenorphine HCL 2 MG SUBL SL SCH ×3 (07:56→21:12)
[2020-09-22] MEDS: OLANZapine ZYDIS 5 MG ORALLY DIS. TAB PO SCH (07:56)
[2020-09-22] MEDS: levETIRAcetam 500 MG in 0.9 % SODIUM CHLORIDE 100 ML IV SCH ×2 (09:43→22:13)
[2020-09-22] MEDS: AZITHROMYCIN 500 MG in DEXTROSE 5% 250 ML IV SCH (10:03)
[2020-09-22 10:36] LABS: Appearance Urine Clear (Clear); Bilirubin Urine Negative (Negative); Blood Urine Negative (Negative); Color Urine Yellow; Glucose Urine UA Negative (Negative); Ketones Urine Trace (Negative); Leukocyte Esterase Urine Negative (Negative); Nitrite Urine Negative (Negative); Protein Urine Negative (Negative); Specific Gravity Urine 1.009 (1.000-1.030); Urobilinogen Urine Negative (Negative); pH Urine 6.5 (4.5-7.5)
--- NOTE | 2020-09-22 11:11 | Cardiology Progress Note ---
Date of Service September 22, 2020 Assessment & Plan (1) Acute hypoxemic respiratory failure: (2) Pulmonary edema cardiac cause: (3) Lactic acidosis: (4) Aortic stenosis: (5) S/P coronary artery stent placement: 40-year-old female presents with respiratory failure, has been found to have significant lactic acidosis, minimally elevated troponin I, and abnormal chest x-ray consistent with pulmonary edema from congestive heart failure or atypical pneumonia. Her SARS-CoV-2 PCR test is negative. STEVEN performed prior to anticipated extubation. No valvular lesions consistent with endocarditis identified. Upon further visualization and planimetry aortic stenosis is moderate with a moderately calcified trileaflet aortic valve. No indication for intervention of the aortic valve at this time. I believe she has now successfully been diuresed and IV diuretics will be discontinued. Hemoglobin is remained stable. Patient significantly improved clinically, okay to transfer to telemetry from a cardiac standpoint. No further cardiac testing necessary at this time. Admission and Anticipated Discharge Date Admission Date: September 18, 2020 Subjective Patient seen and examined, chart reviewed. Much more alert today and responds appropriately to questioning. States that she is feeling much better. States that her breathing has improved and denies any chest pain, palpitations, lightheadedness, dizziness or syncope. Telemetry reviewed: Normal sinus rhythm without arrhythmia. Review of Systems Review of Systems: All systems reviewed & are unremarkable except as noted in HPI & below Physical Exam Physical Exam: General: Awake, alert and oriented x 3. No acute distress. HEENT: Normocephalic, atraumatic. Pupils equal, round and reactive to light and accommodation. Extraocular muscles are intact. Anicteric sclera. Moist mucous membranes. Neck: No JVD. No bruit. Cardiovascular: Regular. Positive S-4. Normal S-1 and S-2. No S-3. No murmurs or rubs. Pulmonary: Clear to auscultation B/L. No rales, rhonchi or wheezing Abdomen: Bowel sounds x 4, soft. No rebound, guarding or tenderness. No organomegaly. Extremities: No clubbing, cyanosis or edema. +2 pedal pulses bilaterally. Skin: Warm and dry. Results & Data ([facility]) Vital Signs (Past 12 Hours) Vital Signs Temp Pulse Pulse Resp BP BP Pulse Ox 09/22/20 09:27 37.6 C H 88 20 112/85 95 05/27/21 09:00 37.6 C H 82 26 H 92 09/22/20 08:01 37.7 C H 97 H 21 94 09/22/20 08:00 37.6 C H 92 H 80 19 125/74 136/67 93 09/22/20 07:24 37.7 C H 82 24 136/67 93 09/22/20 07:00 37.6 C H 86 27 H 91 09/22/20 04:00 37.7 C H 87 27 H 89 L 09/22/20 02:00 37.8 C H 78 24 92 09/22/20 00:00 37.9 C H 89 28 H 92 Pulse Ox 09/22/20 09:27 09/22/20 09:00 09/22/20 08:01 09/22/20 08:00 91 09/22/20 07:24 09/22/20 07:00 09/22/20 04:00 09/22/20 02:00 09/22/20 00:00
--- NOTE | 2020-09-22 12:45 | Hospitalist Progress Note ---
Date of Service September 22, 2020 Assessment & Plan (1) Acute hypoxemic respiratory failure: (2) Acute on chronic heart failure with preserved ejection fraction (HFpEF): (3) Pulmonary edema cardiac cause: (4) Lactic acidosis: (5) Elevated troponin I level: Acute hypoxemic respiratory failure Present on admission with worsening SOB /acute hypoxemic resp failure /negative COVID 19 screen due to acute decompensated diastolic CHF required mechanical ventilation CXR showed significant progression of the near diffuse bilateral airspace opacities. ECHO showed showed left ventricular wall motion is normal. EF 60 to 65 % treated with IV Lasix /appreciate input from Cardiology S/P extubation 09/20 resp status stable on via nasal canula altered mental status /metabolic encephalopathy : Mental status improved, awake and alert, less confusion today, possible due to drug withdrawal( pt is on chronic Suboxone tx ) vs ICU delirium was placed on IV Precedex gtt acute confusion /been discontinued more than 24 hours ago Dysphagia: Possible secondary to acute delirium, patient also had recent intubation. Failed bedside dysphagia screen as patient started to cough with sips of water Ordered for n.p.o., speech evaluation requested (6) Anemia, iron deficiency: S/P 1 unit of PRBc tx Clinic has been stable no evidence of GI bleed (7) Bicuspid aortic valve: (8) Coronary artery disease: (9) Hx of drug abuse: Tox screen negative. Chronic Suboxone, required IV Precedex for acute delirium (10) Diabetes mellitus, type 2: Insulin sliding scale (11) Hypertension: (12) Asthma: (13) DVT prophylaxis: Subcu Lovenox Full code Disposition: Out of bed as tolerated, ordered for PT OT evaluation Admission and Anticipated Discharge Date Admission Date: September 18, 2020 Subjective Follow-up visit for acute hypoxemic respiratory failure/acute on chronic heart failure with diastolic dysfunction/history of substance abuse: Patient is more awake and alert today, able to answer questions, but that she is at [facility], does not have any recollection for the past few days. No complaint of chest pain or shortness of breath, on 2 L oxygen, denies of any chest heaviness or discomfort Stable to be transition out of ICU, Review of Systems Review of Systems: All systems reviewed & are unremarkable except as noted in Subjective Physical Exam Constitutional: + ill appearing Eyes: + anicteric sclerae ENMT: Nose: + dry nasal mucous membranes Neck: trachea midline, no thyromegaly Respiratory: no respiratory distress Auscultation: + diminished lung sounds and + crackles Cardiovascular: Rate/Rhythm: regular rate and regular rhythm Extremities: + pedal edema Gastrointestinal (Abdomen): Percussion/Palpation: abdomen soft; abdomen nontender Neurologic: PERRL, EOMI, accommodation nl, no face palsy, no dysarthria Psychiatric: Orientation: alert, oriented to person and oriented to place Results & Data Results & Data ([facility]) Vital Signs (Past 12 Hours) Vital Signs Temp Pulse Pulse Resp BP BP Pulse Ox 09/22/20 12:01 37.5 C 83 23 93 09/22/20 12:00 37.5 C 80 23 115/57 L 93 09/22/20 11:00 37.6 C H 85 24 111/58 L 93 09/22/20 10:01 37.7 C H 80 24 92 09/22/20 10:00 37.7 C H 83 24 122/66 92 09/22/20 09:28 37.7 C H 74 24 94 09/22/20 09:27 37.6 C H 88 20 112/85 95 09/22/20 09:00 37.6 C H 82 26 H 92 09/22/20 08:01 37.7 C H 97 H 21 94 09/22/20 08:00 37.6 C H 92 H 80 19 125/74 136/67 93 09/22/20 07:24 37.7 C H 82 24 136/67 93 09/22/20 07:00 37.6 C H 86 27 H 91 09/22/20 04:00 37.7 C H 87 27 H 89 L 09/22/20 02:00 37.8 C H 78 24 92 Pulse Ox 09/22/20 12:01 09/22/20 12:00 09/22/20 11:00 09/22/20 10:01 09/22/20 10:00 09/22/20 09:28 09/22/20 09:27 09/22/20 09:00 09/22/20 08:01 09/22/20 08:00 91 09/22/20 07:24 09/22/20 07:00 09/22/20 04:00 09/22/20 02:00 (1) Diabetes mellitus, type 2 Diabetes mellitus complication status: with unspecified complications Diabetes mellitus mcc insulin use: without mcc use Qualified Code(s): E11.8 - Type 2 diabetes mellitus with unspecified complications
[2020-09-22] MEDS ORDERED: ACETAMINOPHEN 325 MG TAB PO PRN (22:27)
[2020-09-23 06:25] LABS: Hematocrit (blood only) 32.8 % (37-47); Hemoglobin 10.2 g/dL (12.0-16.0); Mean Corpuscular Hemoglobin 23.1 pg (25-34); Mean Corpuscular Hgb Conc 31.1 g/dL (32-36); Mean Corpuscular Volume 74.4 fL (80-100); Mean Platelet Volume 9.4 fL (7.4-10.4); Platelet Count 429 K/uL (130-400); RDW Coefficient of Variation 20.8 % (11.5-14.5); RDW Standard Deviation 55.6 fL (36.4-46.3); Red Blood Count 4.41 M/uL (4.2-5.4); White Blood Count 17.04 K/uL (4.8-10.8)
[2020-09-23 07:23] LABS: BUN Creatinine Ratio 23.1 (10-20); Calcium 9.1 mg/dl (8.5-10.1); Creatinine Clr Calc Pharmacy 100.1 ml/min; Est GFR (African American) 119.7 ml/min; Est GFR (Non-African American) 103.3 ml/min; Potassium 3.6 mmol/L (3.5-5.1)
[2020-09-23] MEDS: INSULIN ASPART 100 UNITS/ML 3 ML PEN SC SCH ×2 (08:33→13:21)
[2020-09-23] MEDS: FUROSEMIDE 40 MG in SYRINGE 0 ML IV SCH (08:37)
[2020-09-23] MEDS: ATORVASTATIN 40 MG TAB NG SCH (08:38)
[2020-09-23] MEDS: CLOPIDOGREL BISULFATE 75 MG TAB PEG SCH (08:39)
[2020-09-23] MEDS: ASPIRIN 81 MG CHEW NG SCH (08:40)
[2020-09-23] MEDS: ENOXAPARIN INJ 40 MG/0.4 ML SYR SQ SCH (08:40)
[2020-09-23] MEDS: OLANZapine ZYDIS 5 MG ORALLY DIS. TAB PO SCH (08:40)
[2020-09-23] MEDS: levETIRAcetam 500 MG in 0.9 % SODIUM CHLORIDE 100 ML IV SCH (09:05)
[2020-09-23] MEDS: FAMOTIDINE 20 MG in SYRINGE 3 ML IV SCH (09:05)
[2020-09-23] MEDS: buprenorphine HCL 2 MG SUBL SL SCH ×2 (09:59→14:47)
--- NOTE | 2020-09-23 11:26 | Pharmacy Report ---
Pharmacy Glycemic Short Note 2 - Date of Service September 23, 2020 - Glycemic Short BSG Results (Last 24 hours): 09/22/20 09/22/20 09/23/20 15:34 20:12 06:06 Glucose 87 POC Glucose 86 114 H 09/23/20 09/23/20 07:28 11:17 Glucose POC Glucose 91 103 H OUTPATIENT ANTIDIABETIC REGIMEN: * Glipizide 10mg PO daily w/ dinner * Metformin 1000mg PO BID w/ meals * A1c = 7% 09/19/20 ASSESSMENT: 09/23 * Pt has received 4 units of insulin over the past 24hrs * 0 units of basal * 4 units of bolus with NovoLog * BSGs 130-84-478-86-114-91 mg/dl * Diet advanced to DMT2 but still poor PO intake. * AM fasting BSG is in goal range without basal insulin - likely not needed based on A1c and poor PO * No changes needed to CF/CR insulin 09/20 * Well controlled type 2 diabetic admitted to ICU for ADHF, resp failure, flash pulm edema, possible pneumonia * Patient had been intubated, but has been extubated as of this morning * IV abx continue * Patient will remain NPO today * BSGs well controlled over last 24 hrs with current insulin orders PLAN FOR INPATIENT GLYCEMIC CONTROL: no changes needed at this time * Hold outpatient oral diabetes medications (glipizide, metformin) * Basal insulin * N/A; continue to hold * Bolus insulin ACHS * Goal Range: Low 110 mg/dL - High 140 mg/dL * Correction Factor: 20 mg/dL/unit * Nutritional / Prandial insulin per carb ratio of 1 unit per 7 grams CHO consumed PLAN FOR DISCHARGE: * may resume home glipizide, metformin regimen on discharge if no contraindications present at time of discharge. Recent A1c 7% at goal for this patient.
--- NOTE | 2020-09-23 16:03 | Discharge Summary ---
Date of Service September 23, 2020 Admission HPI Per Admitting Provider History was gathered strictly from ED provider and records as patient was intubated at the time of my exam. Patient is a 40 yo female with extensive PMHx including Type 2 DM, hyperlipidemia, DM neuropathy, asthma, HTN, heart failure with aortic valve stenosis, CAD, Vit D Def, Chronic Hep C, Opioid dependence, iron deficiency anemia, s/p coronary artery stent placement, polysubstance abuse, and depression who was brought to the hospital via ambulance this morning for complaints of worsening SOB. The patient had worsening SOB in route to the hospital and was given IV Solu-Medrol by EMS along with continuous nebulizer and CPAP. The patient was asking for intubation upon arrival. She was found to have worsening vitals upon presentation and continued to have difficulty breathing and hypoxia on BiPap. She was ultimately sedated and intubated in the ED. Lab evaluation revealed marked WBC count elevation of 48K with left shift. Noted to be mildly anemic with hgb 10. Prior Hgb last month was 9.9. ABG showed acidosis with elevated pCO2 of 60 and decreased pO2 of 71. Glucose was 272. Lactic acid initially 6.5. Down to 3.1 on recheck. LFTs within normal. Creatinine 1.07 with GFR 64%. Troponin elevated at 0.264. BNP 3400. COVID negative. Patient also had multiple IVs started in the ED, Propofol drip, [place] cath insertion with aggressive diuresis. Initial CXR showed almost complete opacification of the lungs. Repeat CXR after some diuresis showed mild improvement. Critcal care team was consulted and is involved. Principal Diagnosis LEFT AGAINST MEDICAL ADVICE ADMITTING DIAGNOSIS ACUTE HYPOXEMIC RESPIRATORY FAILURE REQUIRING MECHANICAL VENTILATION DUE TO DECOMPENSATED CHF VALVULAR HEART DISEASE ACUTE METABOLIC ENCEPHALOPATHY REQUIRING IV PRECEDEX GTT -RESOLVED GRAM POSITIVE /STAPH AUREUS BACTEREMIA Discharge Exam Constitutional + ill appearing Eyes + anicteric sclerae ENMT Nose: + dry nasal mucous membranes Neck trachea midline, no thyromegaly Respiratory no respiratory distress Auscultation: + diminished lung sounds and + crackles Cardiovascular Rate/Rhythm: regular rate and regular rhythm Extremities: + pedal edema Gastrointestinal (Abdomen) Percussion/Palpation: abdomen soft; abdomen nontender Neurologic PERRL, EOMI, accommodation nl, no face palsy, no dysarthria Psychiatric Orientation: alert, oriented to person and oriented to place Discharge Data Allergies Allergy/AdvReac Type Severity Reaction Status Date / Time lidocaine Allergy Intermediate HIVES Verified 08/09/20 22:47 procaine Allergy Intermediate HIVES Verified 08/09/20 22:47 Penicillins Allergy Mild HAD NO Verified 08/09/20 22:47 PROBLEM WITH ZOSYN strawberry Allergy Mild HIVES Verified 08/09/20 22:47 cephalexin AdvReac Intermediate YEAST Verified 08/09/20 22:47 INFECTIONS egg AdvReac Intermediate GI UPSET Verified 08/09/20 22:47 tramadol AdvReac Intermediate SEIZURES Verified 08/09/20 22:47 azithromycin AdvReac Mild STOMACH Verified 08/09/20 22:47 PAIN Consultations 09/18/20 12:30 ED Decision to Admit Stat 09/18/20 15:23 Consult Cardiology Routine Consult [place] Routine Ordered Studies 09/21/20 04:55 CT head/brain wo con Urgent 09/21/20 09:36 US venous doppler LE Routine Hospital Course (1) Acute hypoxemic respiratory failure: (2) Acute on chronic heart failure with preserved ejection fraction (HFpEF): (3) Pulmonary edema cardiac cause: (4) Lactic acidosis: (5) Elevated troponin I level: Acute hypoxemic respiratory failure Present on admission with worsening SOB /acute hypoxemic resp failure /negative COVID 19 screen due to acute decompensated diastolic CHF required mechanical ventilation CXR showed significant progression of the near diffuse bilateral airspace opacities. ECHO showed showed left ventricular wall motion is normal. EF 60 to 65 % treated with IV Lasix /appreciate input from Cardiology S/P extubation 09/20 resp status stable on via nasal canula altered mental status /metabolic encephalopathy : possible due to drug withdrawal( pt is on chronic Suboxone tx ) vs ICU delirium was placed on IV Precedex gtt acute confusion /been discontinued more than 24 hours ago transferred out of ICU on 09/22/20 , has been awake and alert , oriented for past 24 hrs with stable vitals PATIENT LEFT AGAINST MEDICAL ADVICE Patient admitted with acute hypoxemic respiratory failure with decompensated CHF,required mechanical ventilation /intubation on admission, post extubation briefly was on Precedex drip for severe delirium/possible drug withdrawal, (history of drug abuse. on Suboxone ) Blood culture sample on 09/22/2020 2 bottles positive : Staph aureus Patient has valvular heart disease/bicuspid aortic valve in ICU STEVEN was done prior to extubation showed trileaflet aortic valve without any evidence of endocarditis. Patient found pacing in the hallway, i had a long discussion with -patient explaining need for hospital stay for treatment : long-term antibiotic given positive blood culture/valvular heart disease Patient insists on leaving AMA. her excuse of leaving hospital FLOR is: EMS had to break down her apartment door to rescue her, when she was found unresponsive,. Her boyfriend been staying at home,Boyfriend did not fix the door./ had to go to work today. she insists on going home as her apartment door is open my Self and patient's nurse spent almost 40 minutes explaining her life- threatening health condition /risk of heart failure /, severe sepsis with endocarditis /cardiac arrest leading to very likely leaving hospital without completing treatment I did offer to speak with patient's boyfriend to explain Patient refused . 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 doxycycline sent to patient's pharmacy She will be contacted for outpatient hospital follow-up Updated to return back to hospital ER with any symptoms of fever /chills /shortness of breath/ chest heaviness Patient verbalized understanding Cande Herad MD (6) Anemia, iron deficiency: S/P 1 unit of PRBc tx Hb been no evidence of GI bleed (7) Bicuspid aortic valve: (8) Coronary artery disease: (9) Hx of drug abuse: Tox screen negative. Chronic Suboxone, required IV Precedex for acute delirium (10) Diabetes mellitus, type 2: Insulin sliding scale (11) Hypertension: (12) Asthma: (13) DVT prophylaxis: Subcu Lovenox Full code Disposition:Patient left against medical advice Total Time Total Time Spent Total Time Spent (In Minutes): 45MINS Total Time Includes: Examination of the Patient, Discharge Planning and Medication Reconciliation Discharge Plan Discharge Items Patient Disposition: Against Medical Advice Reason For Visit: RESP FAILURE Condition on Discharge: Critical Activity: As commented below Activity Comment: as tolerated Non-emergency contact: Primary Care Provider Follow-up/Referrals: Irvin Iverson MD [Primary Care Provider] - 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 Provider Instructions: YOU HAVE BLOOD INFECTION -WITHOUT ADEQUATE TREATMENT CAN CAUSE SEPSIS /OVERWHELMING INFECTION / NEED TO FOLLOW UP WITH FAMILY PHYSICIAN AND DONOR TECHNICIAN TO ADJUST MEDICATION YOU WERE ADMITTED WITH RESPIRATORY FAILURE/HEART FAILURE -NEEDED MECHANICAL VENTILATION /LIFE SUPPORT NOT TAKING MEDS PRESCRIBED CAN CAUSE SIMILAR LIFE THREATENING CONSEQUENCES , Pending Studies at Discharge: No Stand-Alone Forms: [employer], Smoking Cessation Skilled Items Patient informed of condition?: Yes DNR: No Discharge Level of Care: Other Communicable Disease: No Discharge Prognosis: Other Medications and DC Order Prescriptions: New furosemide [Lasix] 40 mg tablet 40 mg PO BID Qty: 60 RF: 2 doxycycline hyclate 100 mg capsule 100 mg PO BID 21 Days Qty: 42 RF: 0 Continued levetiracetam [Keppra] 500 mg Tablet 500 mg PO BID RF: 0 escitalopram oxalate [Lexapro] 20 mg tablet 20 mg PO QAM RF: 0 metformin 1,000 mg Tablet 1,000 mg PO BID RF: 0 atorvastatin 80 mg Tablet 80 mg PO HS RF: 0 nitroglycerin [Nitrostat] 0.4 mg Tablet, Sublingual 0.4 mg sublingual UD PRN (Reason: Chest Pain) RF: 0 albuterol sulfate 90 mcg/actuation HFA aerosol inhaler 2 puff INHALATION Q6 PRN (Reason: Shortness Of Breath Or Wheezing) RF: 0 buspirone 15 mg tablet 15 mg PO BID RF: 0 medroxyprogesterone [Depo-Provera] 150 mg/mL Syringe 150 mg IM Q3M RF: 0 glipizide 10 mg tablet 10 mg PO DAILYBD RF: 0 clopidogrel 75 mg Tablet 75 mg PO QAM 30 Days Qty: 30 RF: 2 aspirin 81 mg Tablet,Delayed Release (Dr/Ec) 81 mg PO QAM 30 Days Qty: 30 RF: 2 lisinopril 5 mg Tablet 2.5 mg PO QAM RF: 0 metoprolol succinate 25 mg tablet extended release 24 hr 25 mg PO DAILY RF: 0 ferrous sulfate 325 mg (65 mg iron) Tablet,Delayed Release (Dr/Ec) 325 mg PO QDB Qty: 30 RF: 0 meclizine 25 mg tablet 25 mg PO TID PRN (Reason: Dizziness) RF: 0 buprenorphine-naloxone 8-2 mg tablet, sublingual 1 tab SUBLINGUAL DAILY RF: 0 Asmanex Twisthaler 220 mcg/ actuation (120) Aerosol Powdr Breath Activated 2 inh INHALATION DAILY RF: 0 Lantus Solostar U-100 Insulin 100 unit/mL (3 mL) insulin pen 10 unit SUBCUT HS RF: 0 Victoza 3-Zac 0.6 mg/0.1 mL (18 mg/3 mL) pen injector 1.2 mg SUBCUT DAILY RF: 0 gabapentin 400 mg capsule 400 mg PO TID RF: 0 potassium chloride [Klor-Con M20] 20 mEq tablet,ER particles/crystals 20 meq PO DAILY RF: 0 Discontinued meloxicam 15 mg tablet 15 mg PO DAILY RF: 0 furosemide [Lasix] 20 mg tablet 20 mg PO DAILY RF: 0 Discharge Orders: Left Against Medical Advice (Routine); Ordered 09/23/20 Ordered By: Cande Connolly/Other Patient Handouts: High Blood Sugar (Hyperglycemia), Hypoglycemia (Low Blood Sugar), Managing Type 2 Diabetes, A1C Admission Data Admit Date/Time: 09/18/20 12:43 Attending Provider: Cande Heard Admit Provider: Suleiman More Primary Care Provider: Irvin Iverson Other Providers: Suleiman More ; Debora Moon ; Wesley Rutherford ; Chava Armenta Other Interventions: Discharge Summary Assessment (RN) Last Done: 09/23/20 18:47
--- NOTE | 2020-09-23 16:50 | Cardiology Progress Note ---
Date of Service September 23, 2020 Assessment & Plan (1) Acute hypoxemic respiratory failure: (2) Pulmonary edema cardiac cause: (3) Lactic acidosis: (4) Aortic stenosis: (5) S/P coronary artery stent placement: 40-year-old female presents with respiratory failure, has been found to have significant lactic acidosis, minimally elevated troponin I, and abnormal chest x-ray consistent with pulmonary edema from congestive heart failure or atypical pneumonia. Her SARS-CoV-2 PCR test is negative. STEVEN performed prior to anticipated extubation. No valvular lesions consistent with endocarditis identified. Upon further visualization and planimetry aortic stenosis is moderate with a moderately calcified trileaflet aortic valve. No indication for intervention of the aortic valve at this time. I believe she has now successfully been diuresed and IV diuretics will be discontinued. Hemoglobin is remained stable. Patient significantly improved clinically, okay to DC to home from a cardiac standpoint. No further cardiac testing necessary at this time. Admission and Anticipated Discharge Date Admission Date: September 18, 2020 Subjective Patient seen and examined, chart reviewed. Today she looks much better than yesterday. She states that she feels great and is back to her baseline. She is very anxious for discharge stating that her front door is locked at home and she is concerned. She denies chest pain, shortness of breath, palpitations, lightheadedness, dizziness or syncope. I asked her point blank if she is anxious for discharge because she is in need of a 'fix' and she denies this. Telemetry reviewed: Normal sinus rhythm without arrhythmia. Review of Systems Review of Systems: All systems reviewed & are unremarkable except as noted in HPI & below Physical Exam Physical Exam: General: Awake, alert and oriented x 3. No acute distress. HEENT: Normocephalic, atraumatic. Pupils equal, round and reactive to light and accommodation. Extraocular muscles are intact. Anicteric sclera. Moist mucous membranes. Neck: No JVD. No bruit. Cardiovascular: Regular. Positive S-4. Normal S-1 and S-2. No S-3. No murmurs or rubs. Pulmonary: Clear to auscultation B/L. No rales, rhonchi or wheezing Abdomen: Bowel sounds x 4, soft. No rebound, guarding or tenderness. No organomegaly. Extremities: No clubbing, cyanosis or edema. +2 pedal pulses bilaterally. Skin: Warm and dry. Results & Data ([facility]) Vital Signs (Past 12 Hours) Vital Signs Temp Pulse Resp BP Pulse Ox Pulse Ox 09/23/20 12:37 92 09/23/20 11:20 36.5 C 96 H 19 124/77 94 09/23/20 07:15 36.8 C 89 20 115/72 93
--- NOTE | 2020-09-24 13:54 | Communication Note ---
Date of Service: September 24, 2020 Attending note: late entry/documentation from yesterday 09/24/2020, patient was seen around 11 AM, Updated by nursing, , Pt wants to leave AGAINST MEDICAL ADVICE Patient admitted with acute hypoxemic respiratory failure with decompensated CHF,required mechanical ventilation /intubation on admission, post extubation briefly was on Precedex drip for severe delirium/possible drug withdrawal, (history of drug abuse. on Suboxone ) blood culture: 1 bottle positive from gram-positive cocci in clusters Patient has valvular heart disease/bicuspid aortic valve in ICU STEVEN was done prior to extubation showed trileaflet aortic valve without any evidence of endocarditis. Patient found pacing in the hallway, i had a long discussion with -patient explaining need for hospital stay for treatment : decompensated CHF, possible long-term antibiotic given positive blood culture, Patient insists on leaving AMA. her excuse of leaving hospital FLOR is: EMS had to break down her apartment door to rescue her, when she was found unresponsive,. Her boyfriend been staying at home,Boyfriend did not fix the door./ had to go to work today. she insists on going home as her apartment door is open my Self and patient's nurse spent almost 40 minutes explaining her life- threatening health condition /risk of heart failure /, severe sepsis with endocarditis /cardiac arrest leading to very likely leaving hospital without completing treatment I did offer to speak with patient's boyfriend to explain Patient refused . 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 Hall updated as well Patient is alert awake and oriented x3 , with full cognitive function, verbaliz ed understanding that she is aware of the risk of leaving the hospital without completing treatment AMA papers signed by patient, prescription for Lasix, and 3 weeks of p.o. doxycycline sent to patient's pharmacy She will be contacted for outpatient hospital follow-up Updated to return back to hospital ER with any symptoms of fever /chills /shortness of breath/ chest heaviness Patient verbalized understanding Cande Heard MD
== END 2020-09-23 15:25 | disposition left against medical advice (07) | DRG 208 ==
LOC: ED 11:21 → SUATTDRO 12:43 → 1E 12:43 → 2S 09-22 19:26

== ENCOUNTER 2020-10-10 16:37 | Inpatient (IN) ==
[2020-10-10] MEDS ORDERED: VANCOMYCIN HCL 1,750 MG in SODIUM CHLORIDE 0.9% 500 ML IV ONE (18:21)
[2020-10-10] MEDS ORDERED: VANCOMYCIN CONSULT ACTIVE PRN (18:21)
--- NOTE | 2020-10-10 18:34 | Emergency Department Note ---
History of Present Illness General Chief complaint: Leg Injury/Pain Stated complaint: REF BY D[employer]ER [employer]T CONVEYOR Time Seen by Provider: 10/10/20 18:11 Source: patient History of Present Illness Provider complaint: Leg pain Onset (ago): day(s) Location: lower extremity, left and right Radiation: non-radiation Pain Consistency: + constant Maximum Pain Intensity: 8 Quality: + burning Relieved By: + none Associated symptoms: + cough and + shortness of breath (Chronic unchanged); no chest pain, no fever/chills, no headaches and no nausea/vomiting Here Bryant is a 40-year-old female with a history of CHF and her doctor's office for admission to the hospital. The patient states that she has cellulitis to both of her legs. She has had pain for the past 3 days. She describes it as burning. She rates it an 8 out of 10 in severity. No alleviating factors. She has associated redness and warmth to the area. She denies any injury. She has had no chest pain. She states that she is chronically short of breath which is unchanged. She has a history of CHF. She was admitted to the hospital for CHF last month but left AMA. She has developed a nonproductive cough over the past 3 days as well. She denies any fever, vomiting, abdominal pain, diarrhea or urinary symptoms. She has had her Covid vaccines. She denies IVDA. Home Medications Medication Instructions Recorded Confirmed Type escitalopram oxalate [Lexapro] 20 mg PO QAM 05/30/18 10/10/20 History levetiracetam [Keppra] 500 mg PO BID 05/30/18 10/10/20 History lisinopril 2.5 mg PO QAM 09/08/18 10/10/20 History metformin 1,000 mg PO BID 12/19/18 10/10/20 History atorvastatin 80 mg PO HS 12/28/18 10/10/20 History albuterol sulfate 2 puff INHALATION Q6 PRN 11/06/19 10/10/20 History buspirone 15 mg PO BID 11/06/19 10/10/20 History medroxyprogesterone [Depo-Provera] 150 mg IM Q3M 11/06/19 10/10/20 History nitroglycerin [Nitrostat] 0.4 mg SUBLINGUAL UD PRN 11/06/19 10/10/20 History glipizide 10 mg PO DAILYBD 02/22/20 10/10/20 History aspirin 81 mg PO QAM 30 Days #30 tab 02/24/20 10/10/20 Rx clopidogrel 75 mg PO QAM 30 Days #30 tab 02/24/20 10/10/20 Rx metoprolol succinate 25 mg PO DAILY 05/23/20 10/10/20 History ferrous sulfate 325 mg PO QDB #30 tab 05/25/20 10/10/20 Rx gabapentin 400 mg PO TID 08/09/20 10/10/20 History potassium chloride [Klor-Con M20] 20 meq PO DAILY 08/09/20 10/10/20 History Asmanex Twisthaler 2 inh INHALATION DAILY 09/18/20 10/10/20 History Lantus Solostar U-100 Insulin 10 unit SUBCUT HS 09/18/20 10/10/20 History Victoza 3-Zac 1.2 mg SUBCUT DAILY 09/18/20 10/10/20 History buprenorphine-naloxone 1 tab SUBLINGUAL DAILY 09/18/20 10/10/20 History meclizine 25 mg PO TID PRN 09/18/20 10/10/20 History doxycycline hyclate 100 mg PO BID 21 Days #42 cap 09/23/20 10/10/20 Rx furosemide [Lasix] See Rx Instructions .ROUTE .COMPLEX 10/10/20 10/10/20 History Allergies Allergy/AdvReac Type Severity Reaction Status Date / Time lidocaine Allergy Intermediate HIVES Verified 10/10/20 18:54 procaine Allergy Intermediate HIVES Verified 10/10/20 18:54 Penicillins Allergy Mild HAD NO Verified 10/10/20 18:54 PROBLEM WITH ZOSYN strawberry Allergy Mild HIVES Verified 10/10/20 18:54 cephalexin AdvReac Intermediate YEAST Verified 10/10/20 18:54 INFECTIONS egg AdvReac Intermediate GI UPSET Verified 10/10/20 18:54 tramadol AdvReac Intermediate SEIZURES Verified 10/10/20 18:54 azithromycin AdvReac Mild STOMACH Verified 10/10/20 18:54 PAIN Past Med/Surg History Medical History Acute electrocardiogram changes Aortic regurgitation Aortic stenosis Asthma Atypical chest pain Cannabis abuse Chronic diastolic CHF (congestive heart failure) Coronary artery disease Depression Diabetes mellitus, type 2 Encounter for smoking cessation counseling GERD (gastroesophageal reflux disease) Hepatitis C "Antibiotic screen positive, quantitative RNA positive 08/30/17" Hepatosplenomegaly History of drug abuse History of DVT (deep vein thrombosis) History of renal calculi Hypertension Hypocalcemia Opiate abuse, continuous Overdose Seizure disorder Surgical History History of cardiac cath 2017- 1 ROJAS to ramus, 2 ROJAS to L circumflex. 40-50% plaque to LAD 2018- distal disease (80%) within PDA History of carpal tunnel surgery History of lumbar spinal fusion Hx of tonsillectomy S/P coronary artery stent placement Status post cholecystectomy Family History Other Diabetes Heart disease Hypertension Kidney stones Seizures Social History Smoking Status: Current every day smoker Tobacco Type: Cigarettes Cigarettes Per Day: 10; Number of Years Since Quit: 31; Second Hand Exposure: Yes; Hx Alcohol Use: No Hx Substance Use: No Preferred Language: Estonian Communication Ability: Unable Visual Impairment: No Limitations Hearing Ability: Normal Compliance Advisor Required: No Beliefs That Will Affect Care: None marital status: Single Current Living Situation: Significant Other Current Living Situation Comment: LIVES WITH ROOMMATES Feels Safe at Home: Yes Assistive Devices: Oxygen - Continuous Review of Systems See HPI for pertinent positives & negatives. and A total of 10 systems reviewed and were otherwise negative Physical Exam Vital Signs Vital Signs - 24 hr 10/10/20 16:52 10/10/20 18:45 10/10/20 18:49 Temperature 36.8 C Temperature Source Oral Pulse Rate 113 H 103 H Pulse Rate [Apical] 101 H Respiratory Rate 18 18 26 H Respiratory Effort / Characteristics Non-Labored Respiratory Depth Normal Blood Pressure 110/63 109/63 Blood Pressure [Left Arm] 109/63 Blood Pressure Mean 78 78 Blood Pressure Mean [Left Arm] 78 Pulse Oximetry 95 94 Oxygen Delivery Method Room Air Room Air Sepsis Recent Fever Within 48 Hours No Sepsis New/Unexplained Change in Mental Status N/A Sepsis Action Taken by Nursing No Action Required Oxygen Flow Rate - Titration Pulse Oximetry Post Tiitration 10/10/20 19:00 10/10/20 19:30 10/10/20 20:00 Temperature Temperature Source Pulse Rate 106 H 106 H 104 H Pulse Rate [Apical] Respiratory Rate 24 18 19 Respiratory Effort / Characteristics Respiratory Depth Blood Pressure 115/62 125/75 107/76 Blood Pressure [Left Arm] Blood Pressure Mean 79 91 86 Blood Pressure Mean [Left Arm] Pulse Oximetry 94 Oxygen Delivery Method Sepsis Recent Fever Within 48 Hours Sepsis New/Unexplained Change in Mental Status Sepsis Action Taken by Nursing Oxygen Flow Rate - Titration Pulse Oximetry Post Tiitration 10/10/20 20:40 10/10/20 22:04 Temperature Temperature Source Pulse Rate 104 H Pulse Rate [Apical] Respiratory Rate 16 Respiratory Effort / Characteristics Respiratory Depth Blood Pressure 108/62 Blood Pressure [Left Arm] Blood Pressure Mean 77 Blood Pressure Mean [Left Arm] Pulse Oximetry 93 87 L Oxygen Delivery Method Room Air Sepsis Recent Fever Within 48 Hours Sepsis New/Unexplained Change in Mental Status Sepsis Action Taken by Nursing Oxygen Flow Rate - Titration 2 Pulse Oximetry Post Tiitration 96 Constitutional: Vital signs reviewed. Eyes: Pupils are equal round reactive to light. Conjunctiva are noninjected. ENT: Pharynx is clear without erythema or exudate. Mucous membranes are moist. Neck supple without meningeal signs. Respiratory: Clear to auscultation bilaterally. Breath sounds are equal bilaterally. Cardiovascular: Tachycardic. Regular rhythm. Early systolic murmur. GI: Soft, nondistended and nontender. Bowel sounds are present. Musculoskeletal: Bilateral pitting edema to lower extremities. There is erythema and increased warmth to both lower extremities greater on the right side. There are multiple skin pockmarks especially on the left lower extremity. Integumentary: No cyanosis. or jaundice. Neurological: The patient is awake and alert. No focal deficits. Psychiatric: Normal affect. Not anxious appearing. Course Administered Medications Discontinued Medications Vancomycin HCl 1,750 mg/ (Sodium Chloride) 535 mls @ 200 mls/hr IV NOW ONE Stop: 10/10/20 21:01 Last Admin: 10/10/20 19:29 Dose: 200 mls/hr Documented by: [id number] Magnesium Sulfate/Dextrose (Magnesium Sulfate / D5w) 1 gm in 100 mls @ 100 mls/hr IV Q1H WILMA Stop: 10/10/20 22:27 Last Admin: 10/10/20 21:56 Dose: 100 mls/hr Documented by: [id number] Infusion: 10/10/20 21:37 Dose: 100 mls/hr Documented by: [id number] Admin: 10/10/20 20:37 Dose: 100 mls/hr Documented by: [id number] Medical Decision Making Differential Diagnosis Cellulitis, sepsis, bacteremia, staph aureus, pneumonia Medical Records Attestation: I reviewed the patient's medical records. I did perform a limited focused review of portions of the patient's old chart on the electronic medical record. The patient left the hospital AMA September 23. She was admitted for respiratory failure due to CHF. She did have 2 blood cultures growing out coag negative staph on September 22. Home Medications Current Medication List: was personally reviewed by me Laboratory Data Attestation: I reviewed the patient's lab results. Result diagrams: 10/10/20 18:52 10/10/20 18:52 Lab Results 10/10/20 10/10/20 10/10/20 Range/Units 18:45 18:45 18:52 WBC 15.71 H (4.8-10.8) K/uL RBC 4.26 (4.2-5.4) M/uL Hgb 10.2 L (12.0-16.0) g/dL Hct 32.0 L (37-47) % MCV 75.1 L (80-100) fL MCH 23.9 L (25-34) pg MCHC 31.9 L (32-36) g/dL RDW Std Deviation 61.0 H (36.4-46.3) fL RDW Coeff of Hannah 22.4 H (11.5-14.5) % Plt Count 334 (130-400) K/uL MPV 10.1 (7.4-10.4) fL Immature Gran % (Auto) 0.3 % Neut % (Auto) 58.4 % Lymph % (Auto) 28.8 % Wilson % (Auto) 6.4 % Eos % (Auto) 5.7 % Baso % (Auto) 0.4 % Neut # (Auto) 9.18 H (1.4-6.5) K/uL Lymph # (Auto) 4.53 H (1.2-3.4) K/uL Wilson # (Auto) 1.01 H (0.11-0.59) K/uL Eos # (Auto) 0.89 H (0-0.5) K/uL Baso # (Auto) 0.06 (0-0.2) K/uL Immature Gran # (Auto) 0.04 H (0.00-0.02) K/uL Polychromasia 1+ Hypochromasia Present Basophilic Stippling Occasional PT (9.0-12.0) Seconds INR (0.9-1.1) APTT (21.0-31.0) Seconds PTT Ratio Sodium (136-145) mmol/L Potassium (3.5-5.1) mmol/L Chloride (98-107) mmol/L Carbon Dioxide (21-32) mmol/L Anion Gap (3-11) BUN (7-18) mg/dl Creatinine (0.6-1.2) mg/dl Est Cr Clr Drug Dosing ml/min Est GFR ( Amer) ml/min Est GFR (Non-Af Amer) ml/min BUN/Creatinine Ratio (10-20) Glucose (70-99) mg/dl Lactate (0.4-2.0) mmol/L Calcium (8.5-10.1) mg/dl Magnesium (1.8-2.4) mg/dl Total Bilirubin (0.2-1) mg/dl AST (15-37) U/L ALT (12-78) U/L Alkaline Phosphatase (45-117) U/L Total Protein (6.4-8.2) gm/dl Albumin (3.4-5.0) gm/dl Globulin (2.5-4.0) gm/dl Albumin/Globulin Ratio (0.9-2) Urine Color Urine Appearance (Clear) Urine pH (4.5-7.5) Ur Specific Arrington (1.000-1.030) Urine Protein (Negative) Urine Glucose (UA) (Negative) Urine Ketones (Negative) Urine Blood (Negative) Urine Nitrite (Negative) Urine Bilirubin (Negative) Urine Urobilinogen (Negative) Ur Leukocyte Esterase (Negative) COVID-19 Eval Order Covid19 at [facility] SARS-CoV-2 (PCR) NEGATIVE (Negative) 10/10/20 10/10/20 10/10/20 Range/Units 18:52 18:52 18:52 WBC (4.8-10.8) K/uL RBC (4.2-5.4) M/uL Hgb (12.0-16.0) g/dL Hct (37-47) % MCV (80-100) fL MCH (25-34) pg MCHC (32-36) g/dL RDW Std Deviation (36.4-46.3) fL RDW Coeff of Hannah (11.5-14.5) % Plt Count (130-400) K/uL MPV (7.4-10.4) fL Immature Gran % (Auto) % Neut % (Auto) % Lymph % (Auto) % Wilson % (Auto) % Eos % (Auto) % Baso % (Auto) % Neut # (Auto) (1.4-6.5) K/uL Lymph # (Auto) (1.2-3.4) K/uL Wilson # (Auto) (0.11-0.59) K/uL Eos # (Auto) (0-0.5) K/uL Baso # (Auto) (0-0.2) K/uL Immature Gran # (Auto) (0.00-0.02) K/uL Polychromasia Hypochromasia Basophilic Stippling PT 11.1 (9.0-12.0) Seconds INR 1.1 (0.9-1.1) APTT 25.3 (21.0-31.0) Seconds PTT Ratio 1.0 Sodium 139 (136-145) mmol/L Potassium 3.3 L (3.5-5.1) mmol/L Chloride 98 (98-107) mmol/L Carbon Dioxide 31 (21-32) mmol/L Anion Gap 10.0 (3-11) BUN 10 (7-18) mg/dl Creatinine 1.00 (0.6-1.2) mg/dl Est Cr Clr Drug Dosing 79.3 ml/min Est GFR ( Amer) 80.5 ml/min Est GFR (Non-Af Amer) 69.4 ml/min BUN/Creatinine Ratio 9.7 L (10-20) Glucose 167 H (70-99) mg/dl Lactate 2.0 (0.4-2.0) mmol/L Calcium 8.4 L (8.5-10.1) mg/dl Magnesium 1.4 L (1.8-2.4) mg/dl Total Bilirubin 0.4 (0.2-1) mg/dl AST 19 (15-37) U/L ALT 42 (12-78) U/L Alkaline Phosphatase 108 (45-117) U/L Total Protein 6.8 (6.4-8.2) gm/dl Albumin 2.9 L (3.4-5.0) gm/dl Globulin 3.9 (2.5-4.0) gm/dl Albumin/Globulin Ratio 0.7 L (0.9-2) Urine Color Urine Appearance (Clear) Urine pH (4.5-7.5) Ur Specific Arrington (1.000-1.030) Urine Protein (Negative) Urine Glucose (UA) (Negative) Urine Ketones (Negative) Urine Blood (Negative) Urine Nitrite (Negative) Urine Bilirubin (Negative) Urine Urobilinogen (Negative) Ur Leukocyte Esterase (Negative) COVID-19 Eval Order SARS-CoV-2 (PCR) (Negative) 10/10/20 Range/Units 21:25 WBC (4.8-10.8) K/uL RBC (4.2-5.4) M/uL Hgb (12.0-16.0) g/dL Hct (37-47) % MCV (80-100) fL MCH (25-34) pg MCHC (32-36) g/dL RDW Std Deviation (36.4-46.3) fL RDW Coeff of Hannah (11.5-14.5) % Plt Count (130-400) K/uL MPV (7.4-10.4) fL Immature Gran % (Auto) % Neut % (Auto) % Lymph % (Auto) % Wilson % (Auto) % Eos % (Auto) % Baso % (Auto) % Neut # (Auto) (1.4-6.5) K/uL Lymph # (Auto) (1.2-3.4) K/uL Wilson # (Auto) (0.11-0.59) K/uL Eos # (Auto) (0-0.5) K/uL Baso # (Auto) (0-0.2) K/uL Immature Gran # (Auto) (0.00-0.02) K/uL Polychromasia Hypochromasia Basophilic Stippling PT (9.0-12.0) Seconds INR (0.9-1.1) APTT (21.0-31.0) Seconds PTT Ratio Sodium (136-145) mmol/L Potassium (3.5-5.1) mmol/L Chloride (98-107) mmol/L Carbon Dioxide (21-32) mmol/L Anion Gap (3-11) BUN (7-18) mg/dl Creatinine (0.6-1.2) mg/dl Est Cr Clr Drug Dosing ml/min Est GFR ( Amer) ml/min Est GFR (Non-Af Amer) ml/min BUN/Creatinine Ratio (10-20) Glucose (70-99) mg/dl Lactate (0.4-2.0) mmol/L Calcium (8.5-10.1) mg/dl Magnesium (1.8-2.4) mg/dl Total Bilirubin (0.2-1) mg/dl AST (15-37) U/L ALT (12-78) U/L Alkaline Phosphatase (45-117) U/L Total Protein (6.4-8.2) gm/dl Albumin (3.4-5.0) gm/dl Globulin (2.5-4.0) gm/dl Albumin/Globulin Ratio (0.9-2) Urine Color Yellow Urine Appearance Clear (Clear) Urine pH 6.5 (4.5-7.5) Ur Specific Arrington 1.008 (1.000-1.030) Urine Protein Negative (Negative) Urine Glucose (UA) Negative (Negative) Urine Ketones Negative (Negative) Urine Blood Negative (Negative) Urine Nitrite Negative (Negative) Urine Bilirubin Negative (Negative) Urine Urobilinogen Negative (Negative) Ur Leukocyte Esterase Negative (Negative) COVID-19 Eval Order SARS-CoV-2 (PCR) (Negative) Imaging Data Radiologist's Impression: Chest X-Ray 10/10/20 18:22 SINGLE VIEW CHEST CLINICAL HISTORY: Sepsis. FINDINGS: An AP, portable, upright chest radiograph is compared to study dated 09/20/2020 and correlated with chest CT dated 05/23/2020. The heart is top normal for projection. There is pulmonary vascular congestion. Interstitial airspace opacities are present in both lungs. No large pleural effusion or pneumothorax is seen. The skeletal structures are osteopenic. The bony thorax is grossly intact. IMPRESSION: 1. Pulmonary vascular congestion. 2. There are bilateral interstitial airspace opacities. This could represent mild pulmonary edema and/or an infectious/inflammatory pneumonitis. Clinical correlation will be required. ACT 112: Negative or not required by law. Electronically signed by: [email or web address] Villanueva M.D. 10/10/2020 8:43 PM ECG Data Attestation: I personally reviewed and interpreted this ECG as follows: Indication: + SOB/dyspnea and + tachycardia Rate (beats per minute): 102 Rhythm: + sinus tachycardia ECG [place]: + Normal ECG ST segments: no ST elevation ECG Findings: no PVCs MDM Narrative I did evaluate the patient as noted above. The patient is presenting with cellulitis to both lower extremities. She was recently hospitalized and had blood cultures growing out coag negative staph. On exam she has cellulitis to both lower extremities. She does have a murmur on exam but she states that is chronic. IV access was established. I did place an order for continuous cardiac monitoring. The monitor showed sinus tachycardia at a rate of 110 bpm. I did order and personally review the patient's 12-lead EKG as described above. She has sinus tachycardia without acute ischemia. I did order and personally reviewed the images of the patient's chest x-ray as described above. I do not see any evidence of pneumonia but the radiologist describes some vascular congestion and bilateral interstitial opacities. I did order a urine analysis. I did order blood cultures. I did treat the patient with vancomycin IV. I did order and review the patient's blood work as noted in the electronic medical record. Her white count is elevated 15.7. Hemoglobin is 10.2. Electrolytes demonstrate a potassium of 3.3. Her magnesium is 1.4. I did treat her with IV magnesium 2 g. I did discuss the test results with the patient. She will be hospitalized for further care and evaluation. I did discuss the case with the hospitalist and therapeutic case manager. 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 [employer] Prescriptions Prescriptions: No Action levetiracetam [Keppra] 500 mg Tablet 500 mg PO BID RF: 0 escitalopram oxalate [Lexapro] 20 mg tablet 20 mg PO QAM RF: 0 metformin 1,000 mg Tablet 1,000 mg PO BID RF: 0 atorvastatin 80 mg Tablet 80 mg PO HS RF: 0 nitroglycerin [Nitrostat] 0.4 mg Tablet, Sublingual 0.4 mg sublingual UD PRN (Reason: Chest Pain) RF: 0 albuterol sulfate 90 mcg/actuation HFA aerosol inhaler 2 puff INHALATION Q6 PRN (Reason: Shortness Of Breath Or Wheezing) RF: 0 buspirone 15 mg tablet 15 mg PO BID RF: 0 medroxyprogesterone [Depo-Provera] 150 mg/mL Syringe 150 mg IM Q3M RF: 0 glipizide 10 mg tablet 10 mg PO DAILYBD RF: 0 clopidogrel 75 mg Tablet 75 mg PO QAM 30 Days Qty: 30 RF: 2 aspirin 81 mg Tablet,Delayed Release (Dr/Ec) 81 mg PO QAM 30 Days Qty: 30 RF: 2 lisinopril 5 mg Tablet 2.5 mg PO QAM RF: 0 metoprolol succinate 25 mg tablet extended release 24 hr 25 mg PO DAILY RF: 0 ferrous sulfate 325 mg (65 mg iron) Tablet,Delayed Release (Dr/Ec) 325 mg PO QDB Qty: 30 RF: 0 meclizine 25 mg tablet 25 mg PO TID PRN (Reason: Dizziness) RF: 0 buprenorphine-naloxone 8-2 mg tablet, sublingual 1 tab SUBLINGUAL DAILY RF: 0 Asmanex Twisthaler 220 mcg/ actuation (120) Aerosol Powdr Breath Activated 2 inh INHALATION DAILY RF: 0 Lantus Solostar U-100 Insulin 100 unit/mL (3 mL) insulin pen 10 unit SUBCUT HS RF: 0 Victoza 3-Zac 0.6 mg/0.1 mL (18 mg/3 mL) pen injector 1.2 mg SUBCUT DAILY RF: 0 doxycycline hyclate 100 mg capsule 100 mg PO BID 21 Days Qty: 42 RF: 0 gabapentin 400 mg capsule 400 mg PO TID RF: 0 potassium chloride [Klor-Con M20] 20 mEq tablet,ER particles/crystals 20 meq PO DAILY RF: 0 furosemide [Lasix] 40 mg tablet See Rx Instructions .ROUTE .COMPLEX RF: 0 Referrals Referrals: Irvin Iverson MD [Primary Care Provider] -
[2020-10-10 19:26] LABS: Basophils # (auto) 0.06 K/uL (0-0.2); Basophils % (auto) 0.4 %; Eosinophils # (auto) 0.89 K/uL (0-0.5); Eosinophils % (auto) 5.7 %; Hemoglobin 10.2 g/dL (12.0-16.0); Immature Granulocytes # (auto) 0.04 K/uL (0.00-0.02); Immature Granulocytes % (auto) 0.3 %; Lymphocytes # (auto) 4.53 K/uL (1.2-3.4); Lymphocytes % (auto) 28.8 %; Mean Corpuscular Hemoglobin 23.9 pg (25-34); Mean Corpuscular Hgb Conc 31.9 g/dL (32-36); Mean Corpuscular Volume 75.1 fL (80-100); Mean Platelet Volume 10.1 fL (7.4-10.4); Monocytes # (auto) 1.01 K/uL (0.11-0.59); Monocytes % (auto) 6.4 %; Neutrophils # (auto) 9.18 K/uL (1.4-6.5); Neutrophils % (auto) 58.4 %; Platelet Count 334 K/uL (130-400); RDW Coefficient of Variation 22.4 % (11.5-14.5); Red Blood Count 4.26 M/uL (4.2-5.4); White Blood Count 15.71 K/uL (4.8-10.8)
[2020-10-10 19:39] LABS: INR 1.1 (0.9-1.1); Partial Thromboplastin Time 25.3 Seconds (21.0-31.0); Prothrombin Time 11.1 Seconds (9.0-12.0)
[2020-10-10 19:43] LABS: Albumin Level 2.9 gm/dl (3.4-5.0); BUN Creatinine Ratio 9.7 (10-20); Calcium 8.4 mg/dl (8.5-10.1); Creatinine Clr Calc Pharmacy 79.3 ml/min; Est GFR (African American) 80.5 ml/min; Est GFR (Non-African American) 69.4 ml/min; Magnesium 1.4 mg/dl (1.8-2.4); Potassium 3.3 mmol/L (3.5-5.1)
[2020-10-10 19:45] LABS: Albumin Globulin Ratio 0.7 (0.9-2); Basophilic Stippling Occasional; Bilirubin,Total 0.4 mg/dl (0.2-1); Globulin 3.9 gm/dl (2.5-4.0); Hypochromasia Present; Polychromasia 1+; Total Protein 6.8 gm/dl (6.4-8.2)
[2020-10-10] MEDS: MAGNESIUM SULFATE / D5W 1 GM/100 ML BAG IV SCH ×2 (20:37→21:56)
--- NOTE | 2020-10-10 20:44 | XRay Report ---
SINGLE VIEW CHEST CLINICAL HISTORY: Sepsis. FINDINGS: An AP, portable, upright chest radiograph is compared to study dated 09/20/2020 and correlat ed with chest CT dated 05/23/2020. The heart is top normal for projection. There is pulmonary vascular congestion. Interstitial airspace opacities are present in both lungs. No large pleural effusion or pneumothorax is seen. The skeletal structures are osteopenic. The bony thorax is grossly intact. IMPRESSION: 1. Pulmonary vascular congestion. 2. There are bilateral interstitial airspace opacities. This could represent mild pulmonary edema and /or an infectious/inflammatory pneumonitis. Clinical correlation will be required. ACT 112: Negative or not required by law. Electronically signed by: Ja Villanueva M.D. 10/10/2020 8:43 PM
[2020-10-10 21:37] LABS: Appearance Urine Clear (Clear); Bilirubin Urine Negative (Negative); Blood Urine Negative (Negative); Color Urine Yellow; Glucose Urine UA Negative (Negative); Ketones Urine Negative (Negative); Leukocyte Esterase Urine Negative (Negative); Nitrite Urine Negative (Negative); Protein Urine Negative (Negative); Specific Gravity Urine 1.008 (1.000-1.030); Urobilinogen Urine Negative (Negative); pH Urine 6.5 (4.5-7.5)
[2020-10-10] MEDS ORDERED: NITROGLYCERIN SL 0.4 MG/TAB TAB SL PRN ×2 (23:33)
[2020-10-10] MEDS ORDERED: FUROSEMIDE 40 MG/4 ML VIAL IV SCH (23:33)
[2020-10-10] MEDS ORDERED: ALBUTEROL HFA 8 GM INHALER INH PRN (23:33)
[2020-10-10] MEDS ORDERED: LEVALBUTEROL HCL 1.25 MG/3 ML NEB NEB PRN (23:33)
[2020-10-10] MEDS ORDERED: ACETAMINOPHEN 325 MG TAB PO PRN (23:33)
[2020-10-10] MEDS ORDERED: MECLIZINE HCL 25 MG TAB PO PRN (23:33)
[2020-10-10] MEDS ORDERED: POTASSIUM CHLORIDE CRTAB 20 MEQ TABCR PO STA (23:33)
[2020-10-11] MEDS: HEPARIN SOD 5,000 UNIT/0.5 ML VIAL SQ SCH ×5 (00:45→21:51)
[2020-10-11] MEDS: levETIRAcetam 500 MG TAB PO SCH ×3 (00:45→20:25)
[2020-10-11] MEDS: INSULIN GLARGINE SOLOSTAR 100 UNITS/ML 3 ML PEN SQ SCH ×2 (00:49→20:27)
[2020-10-11 00:57] LABS: Amphetamines+Metham, Urine Neg (Neg); Barbiturates, Urine Neg (Neg); Benzodiazepine, Urine Neg (Neg); Cocaine, Urine Neg (Neg); MDMA (Ecstacy), Urine Neg (Neg); Methadone, Urine Neg (Neg); Opiate, Urine Neg (Neg); Phencyclidine, Urine Neg (Neg)
[2020-10-11] MEDS: FUROSEMIDE 40 MG in SYRINGE 0 ML IV SCH ×3 (01:32→17:38)
[2020-10-11] MEDS: VANCOMYCIN HCL 1,000 MG in SODIUM CHLORIDE 0.9% 250 ML IV SCH ×3 (04:06→19:35)
[2020-10-11 05:41] LABS: Basophils # (auto) 0.04 K/uL (0-0.2); Basophils % (auto) 0.3 %; Eosinophils # (auto) 0.73 K/uL (0-0.5); Eosinophils % (auto) 5.9 %; Hematocrit (blood only) 30.5 % (37-47); Hemoglobin 9.4 g/dL (12.0-16.0); Immature Granulocytes # (auto) 0.04 K/uL (0.00-0.02); Immature Granulocytes % (auto) 0.3 %; Lymphocytes # (auto) 3.66 K/uL (1.2-3.4); Lymphocytes % (auto) 29.6 %; Mean Corpuscular Hemoglobin 23.8 pg (25-34); Mean Corpuscular Hgb Conc 30.8 g/dL (32-36); Mean Corpuscular Volume 77.2 fL (80-100); Mean Platelet Volume 9.8 fL (7.4-10.4); Monocytes % (auto) 6.5 %; Neutrophils % (auto) 57.4 %; Platelet Count 319 K/uL (130-400); RDW Coefficient of Variation 22.3 % (11.5-14.5); RDW Standard Deviation 62.1 fL (36.4-46.3); Red Blood Count 3.95 M/uL (4.2-5.4); White Blood Count 12.37 K/uL (4.8-10.8)
[2020-10-11 06:09] LABS: BUN Creatinine Ratio 11.2 (10-20); Blood Urea Nitrogen 9 mg/dl (7-18); Calcium 7.9 mg/dl (8.5-10.1); Carbon Dioxide 33 mmol/L (21-32); Chloride 101 mmol/L (98-107); Creatinine Clr Calc Pharmacy 97.7 ml/min; Est GFR (African American) 103.8 ml/min; Est GFR (Non-African American) 89.6 ml/min; Glucose 144 mg/dl (70-99); Potassium 3.7 mmol/L (3.5-5.1); Sodium 139 mmol/L (136-145)
[2020-10-11 06:10] LABS: Anisocytosis Present; Hypochromasia Present
[2020-10-11 06:14] LABS: Troponin I < 0.015 ng/ml (0-0.045)
[2020-10-11 07:11] LABS: Estimated Average Glucose 157 mg/dl; Hemoglobin A1C 7.1 % (4.5-5.6)
--- NOTE | 2020-10-11 08:03 | History and Physical Report ---
DATE OF ADMISSION: 10/10/2020 CHIEF COMPLAINT: Lower extremity cellulitis and edema. 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 Congenital abnormal aortic valve with [id number] aortic stenosis and aortic regurgitation, type 2 diabetes with diabetic neuropathy, hypertension, hyperlipidemia, recurrent soft tissue infection, chronic hepatitis C, opioid dependence, polysubstance abuse, vitamin D deficiency, asthma, diastolic CHF with aortic valve stenosis, iron deficiency anemia, depression. The patient was recently in the hospital due to acute hypoxic respiratory failure, [id number] heart failure with preserved EF, pulmonary edema, She was intubated at that time during hospitalization. During hospitalization, she had an episode of encephalopathy, thought to be secondary to, thought to be from drug withdrawal because of chronic Suboxone use or ICU delirium and was placed on Precedex drip for more than 24 hours. Then the patient did fine and after that she was transferred out of the ICU. Then the patient signed out AMA. Blood culture grew out two bottles positive for staph aureus. The patient was informed of the positive blood culture, still she signed out AMA. The patient went to PCP's office on 10/05/2020 with complaints of lower extremity edema and slight shortness of breath and weight gain of 10 pounds and right lower extremity Doppler was done, but there was no DVT and the lab work seemed to be unremarkable and she went to see cardiology today and because of lower extremity cellulitis and CHF and questionable compliance with the medications, she was advised to come to the hospital. Currently, the patient is drowsy, but answering questions appropriately, speaks in a low voice. Has swelling of the lower extremity and weight gain. Denies any chest pain or shortness of breath. She states she is ambulating okay. She denies any cough. Denies any fevers. No headache, no blurred visions, no runny nose. Her appetite is okay. No nausea, no vomiting, normal bowel movements. The patient lives with her boyfriend. ALLERGIES: LIDOCAINE, PROCAINE, PENICILLIN, STRAWBERRIES, CEPHALEXIN, EGGS, TRAMADOL, AZITHROMYCIN. PAST MEDICAL HISTORY: As mentioned above. PAST SURGICAL HISTORY: Cardiac stent placement, carpal tunnel surgery, dental surgery, incision and drainage, lumbar disk arthroplasty, tonsillectomy, cholecystectomy, spinal fusion of lumbar, right knee surgery, transesophageal echo. MEDICATIONS: The patient is on albuterol 2 puffs inhalation q. 6 hours p.r.n., Asmanex 2 inhalations daily, aspirin 81 mg daily, atorvastatin 80 mg p.o. at bedtime, Suboxone 1 tab sublingual daily, buspirone 15 mg p.o. b.i.d., Plavix 75 mg p.o. daily, doxycycline 100 mg p.o. b.i.d., Lexapro 20 mg p.o. a.m., ferrous sulfate 325 mg p.o. daily, Lasix 80 mg in the a.m. and 40 mg p.m., gabapentin 400 mg p.o. t.i.d., glipizide 10 mg p.o. daily, Lantus 10 units subcutaneous at bedtime, Keppra 500 mg p.o. b.i.d., lisinopril 2.5 mg p.o. a.m., meclizine 25 mg p.o. t.i.d. p.r.n., Depo-Provera 150 mg IM q. 3 months, Metformin 1000 mg p.o. b.i.d., metoprolol succinate 25 mg p.o. daily, nitroglycerin 0.4 mg sublingual p.r.n., potassium chloride 20 mEq p.o. daily, Victoza 1.2 mg subcutaneous daily, and albuterol nebulization p.r.n. FAMILY HISTORY: Significant for mother has type 2 diabetes, bypass surgery, hypertension; brother has Crohn's disease; mother born with only one kidney. SOCIAL HISTORY: Single, smokes 0.4 packs a day for 19 years. No alcohol use. History of cocaine and intravenous oxycodone. REVIEW OF SYSTEMS: As per HPI. Rest of the review of systems are negative. PHYSICAL EXAMINATION: GENERAL: The patient is moderately built, drowsy, but not in acute distress. VITAL SIGNS: Temperature 36.8, pulse 104, respiratory rate 16, blood pressure 108/62, oxygen 93% on room air. HEENT: Pupils equal, round and reactive to light. Oral mucosa moist. NECK: Supple. No neck masses seen. CARDIOVASCULAR: S1 and S2 heard. Regular rate and rhythm. No murmur, no gallop. RESPIRATORY: Normal AP diameter, no accessory muscle use. No wheeze, no crackles. ABDOMEN: Soft, bowel sounds present, nontender, no distention. CENTRAL NERVOUS SYSTEM: Cranial nerves II through XII are grossly intact. Nonfocal. Drowsy, but alert and oriented x3. Speech is low, but clear. No facial droop. Insight good. Moves extremities. EXTREMITIES: Bilateral lower extremity gross edema present with erythematous changes and some scabs seen. LABORATORY DATA: WBC 15.7, hemoglobin 10.2, hematocrit 32, platelets 334. PT 11.1, INR 1.1, APTT 25.3. Sodium 139, potassium 3.3, chloride 98, bicarbonate 31, BUN 10, creatinine 1, serum glucose 167, lactate 2, calcium 8.4, magnesium 1.4, total bilirubin 0.4, AST 19, ALT 42, alkaline phosphatase 108. SARS-CoV-2 PCR negative. IMAGING DATA: Chest x-ray, pulmonary vascular congestion, bilateral interstitial airspace opacities, this could represent mild pulmonary edema or infectious. Clinical correlation warranted. EKG: Sinus tachycardia, possible left atrial enlargement, nonspecific T-wave abnormalities, at a rate of 102. ASSESSMENT AND PLAN: This is a 40-year-old female who presents with acute congestive heart failure and lower extremity cellulitis. 1. Acute congestive heart failure with preserved ejection fraction: The patient is on Lasix 80 mg in the morning and 40 in the afternoon with question of compliance and question of compliance with diet. Will place on IV Lasix 40 b.i.d. Continue her home lisinopril, Toprol-XL. Monitor I's and O's, daily weights. Monitor in the tele floor. Cardiology consult in a.m. 2. Hypokalemia and hypomagnesemia: Will replace. 3. Lower extremity cellulitis: Recent blood cultures showing Staphylococcus aureus, coag-negative staph, resistant to oxacillin. Was placed on empiric vancomycin. Follow the repeat cultures. 4. History of coronary artery disease status post stent: Continue her home aspirin, Plavix, statin, and beta vijay. Currently stable. 5. History of drug abuse: Will do toxicity screen. Will continue her home Suboxone. 6. History of diabetes: Hold her home medications. Placed on insulin sliding scale. Follow the blood sugars. 7. History of hypertension: Continue her lisinopril and continue diuretics and Toprol. 8. History of iron deficiency anemia: On iron supplements. 9. History of asthma: Continue her home inhalers and nebs p.r.n. 10. Depression: Continue Lexapro. 11. History of chronic hepatitis C. 12. Deep venous thrombosis prophylaxis: Will place her on heparin subQ. DISPOSITION: Closely monitor on tele floor. Level 1 full code. PT/OT prior to discharge. Social service to help with discharge planning. Job ID: [id number] [facility]
[2020-10-11] MEDS: FERROUS SULFATE 325 MG TAB PO SCH (08:14)
[2020-10-11] MEDS: CLOPIDOGREL BISULFATE 75 MG TAB PO SCH (08:14)
[2020-10-11] MEDS: ESCITALOPRAM OXALATE 20 MG TAB PO SCH (08:14)
[2020-10-11] MEDS: lisinopril 2.5 MG TAB PO SCH (08:15)
[2020-10-11] MEDS: GABAPENTIN 400 MG CAP PO SCH ×3 (08:15→20:25)
[2020-10-11] MEDS: ASPIRIN 81 MG ECTAB PO SCH (08:15)
[2020-10-11] MEDS: busPIRone 15 MG TAB PO SCH ×2 (08:15→20:25)
[2020-10-11] MEDS: POTASSIUM CHLORIDE CRTAB 20 MEQ TABCR PO SCH (08:15)
[2020-10-11] MEDS: METOPROLOL SUCC 25MG EXT REL TAB PO SCH (08:16)
[2020-10-11] MEDS: FLUTICASONE FUROATE 200MCG 14 PUFFS/INHALER INH SCH (08:16)
[2020-10-11] MEDS: INSULIN ASPART 100 UNITS/ML 3 ML PEN SC SCH ×4 (08:51→20:26)
[2020-10-11] MEDS ORDERED: BUPRENORPHINE/NALOXONE 8/2 MG TAB SL SCH (09:00)
--- NOTE | 2020-10-11 12:03 | Electrocardiogram Report ---
Test Reason : Blood Pressure : / mmHG Vent. Rate : 102 BPM Atrial Rate : 102 BPM P-R Int : 136 ms QRS Dur : 094 ms QT Int : 306 ms P-R-T Axes : 056 045 -12 degrees QTc Int : 398 ms Sinus tachycardia Possible Left atrial enlargement Nonspecific T wave abnormality Abnormal ECG When compared with ECG of 21-SEP-2020 11:06, Nonspecific T wave abnormality, worse in Inferior leads Nonspecific T wave abnormality now evident in Anterolateral leads QT has shortened Confirmed by Liu Harrington ([id number]) on 10/11/2020 12:02:49 PM Referred By: REFERRED SELF Confirmed By:Angus Harrington
--- NOTE | 2020-10-11 12:16 | Electrocardiogram Report ---
Test Reason : Blood Pressure : / mmHG Vent. Rate : 092 BPM Atrial Rate : 092 BPM P-R Int : 154 ms QRS Dur : 084 ms QT Int : 400 ms P-R-T Axes : 051 048 038 degrees QTc Int : 495 ms Normal sinus rhythm Nonspecific ST abnormality Prolonged QT Abnormal ECG When compared with ECG of 10-OCT-2020 18:45, (unconfirmed) Nonspecific T wave abnormality, improved in Inferior leads Nonspecific T wave abnormality no longer evident in Lateral leads QT has lengthened Confirmed by Liu Harrington ([id number]) on 10/11/2020 12:16:22 PM Referred By: REFERRED SELF Confirmed By:Angus Harrington
--- NOTE | 2020-10-11 13:57 | Pharmacy Report ---
Pharmacy Abx Initial Consult - Date of Service October 11, 2020 - Pharmacy Dosing Scope Date of Consult: 10/11/20 Consultation requested by: Dr. Friedman Pharmacy is consulted to initiate vancomycin IV dosing therapy, order appropriate labs and adjust drug dose/frequency. - Subjective The patient is a 40 year old F admitted on 10/10/20 21:44. - Objective Height: 5 ft 4 in Weight: 88.9 kg Vital Signs (Past 12hrs): Vital Signs Temp Pulse Pulse Resp BP Pulse Ox 10/11/20 11:12 36.7 C 79 19 103/64 95 10/11/20 08:00 87 10/11/20 07:21 37.1 C 88 20 106/60 96 10/11/20 03:53 36.7 C 88 18 117/63 96 Lab Results (24hrs): Laboratory Tests (24 Hours) 10/11/20 10/11/20 10/10/20 05:20 05:20 18:52 WBC 12.37 H Neut # (Auto) 7.10 H Creatinine 0.81 1.00 Est Cr Clr Drug Dosing 97.7 79.3 10/10/20 18:52 WBC 15.71 H Neut # (Auto) 9.18 H Creatinine Est Cr Clr Drug Dosing Micro Results: 10/10/20 19:25 Aerobic Blood Culture - Pending Blood Anaerobic Blood Culture - Pending 10/10/20 18:52 Aerobic Blood Culture - Pending Blood Anaerobic Blood Culture - Pending - Assessment & Plan Assessment 40 year old F ordered empiric vancomycin for treatment of bilateral lower extremity cellulitis. Patient has pertinent PMH of diabetes mellitus, CHF, CAD w/ history of stent placement, drug abuse, and asthma, Hepatitis C, and history of seizures. Recently had positive blood cultures (09/22/20) for coagulase negative Staphylococcus that was resistant to oxacillin. Afebrile with WBC of 15 K on admission with improvement to 12 K today (of note, WBC appears to be persistently elevated based on prior admission data). Penicillin allergy noted, but also reports tolerating Zosyn. Repeat blood cultures from 10/10 ordered and pending. Plan Vancomycin IV * Loading dose: 1750 mg (20 mg/kg) * Maintenance dose: 1000 mg IV ( mg/kg) every 8 hours * Goal trough level for cellulitis : 10 to 20 mcg/mL * Trough level ordered for 10/12/20 * Vancomycin appropriate at this time given recent culture data Pharmacy will continue to follow and will adjust dose/frequency as necessary. Thank you.
--- NOTE | 2020-10-11 16:59 | Hospitalist Progress Note ---
Date of Service October 11, 2020 Assessment & Plan (1) Acute on chronic congestive heart failure: presented with shortness of breath , volume overload Acute on chronic CHF with preserved LV function , severe valvular heart disease /aortic stenosis : symptoms improved with Iv Lasix added Aldactone appreciate input from Cardiology (2) Cellulitis of both lower extremities: on Iv vancomycin (3) Bacteremia: recent hx of gram positive bacteremia , MRSA on vancomycin repeat blood culture ordered , follow result (4) Anemia, iron deficiency: microcytic anemia last admission required PRBC transfusion iron studies ordered pt needs to be on dual antiplatelet therapy for hx of CAD s/p PTCA \ given hx of non compliance , drug abuse hx doubt pt will follow up in GI clinic for out patient eval GI eval requested Hx of CAD s/p PTCA : cont cardiac meds hx of drug abuse : on suboxone Full code DVT prophylaxis: sub q heparin Disposition : expected to be discharged home with medically stable Admission and Anticipated Discharge Date Admission Date: October 10, 2020 Subjective pt reports improvement of shortness of breath no complain of chest pain no fever or chills Review of Systems Review of Systems: All systems reviewed & are unremarkable except as noted in Subjective Physical Exam Physical Exam: Physical exam: General: No acute distress, alert awake oriented x3 HEENT: PERRLA, EOMI, Heart: Regular S1-S2, no carotid bruit, no JVD, no lower extremity edema Lungs: Clear to auscultate, no wheeze or rales Abdomen: Soft nontender, no organomegaly Extremity: No cyanosis, no deformity, normal strength 5 out of 5 with upper and lower Neuro: No focal neurological deficit normal speech, normal visual field, Motor strength : normal both upper and lower extremity, sensation intact Psych: Alert awake oriented x3, normal affect Results & Data Results & Data ([facility]) Vital Signs (Past 12 Hours) Vital Signs Temp Pulse Pulse Resp BP Pulse Ox 10/11/20 15:22 36.7 C 68 20 110/68 96 10/11/20 15:05 79 10/11/20 11:12 36.7 C 79 19 103/64 95 10/11/20 08:00 87 10/11/20 07:21 37.1 C 88 20 106/60 96
--- NOTE | 2020-10-11 18:48 | Cardiology Consultation ---
Date of Consultation October 11, 2020 Assessment & Plan (1) Acute on chronic heart failure with preserved ejection fraction (HFpEF): Agree with furosemide 40 mg IV twice daily. Start spironolactone 25 mg daily. Question why this 40-year-old female would have recurrent volume overload issues. Recent transthoracic and transesophageal echo evaluations were consistent with moderate to borderline severe aortic valve stenosis, with CW velocities by transthoracic in the range of 3.8 to 4 m/s, and calculated aortic valve area of just above 1 cm by transesophageal echo last month. In January,, peak to peak gradient across aortic valve measured in the cardiac Department Manager was only 10 to 20 mmHg consistent with mild aortic stenosis at that time. At this time, I think it is prudent to continue medical therapy. Given her history of recurrent infections and concerns with lack of adherence (both lack of medication and healthy lifestyle behaviors), she is certainly not in ideal candidate for valvular intervention and therefore would only proceed if it was clearly to be of benefit. (2) Cellulitis of both lower extremities: Agree with antibiotic therapy. (3) Anemia, iron deficiency: Update iron studies. GI consulted by primary service. Patient remains on chronic dual antiplatelet therapy with aspirin clopidogrel due to past drug-eluting stent to the right PDA branch of the right coronary artery in January 2020. (4) S/P coronary artery stent placement: Status post drug-eluting stent to the PDA branch of the right coronary artery, January,, patient remains on aspirin, clopidogrel, metoprolol, lisinopril, atorvastatin. History of Present Illness Attending Physician: Cande Heard MD History of Present Illness Fritz Gonzalez is a 40-year-old female seen in cardiology consultation per the request of Dr. Friedman and Dr Heard for the evaluation of congestive heart failure. Patient is well-known to our cardiology service and been seen in consultation by the undersigned on 09/18/2020 after presentation to the emergency department at that time with volume overload, ventilator dependent respiratory failure. She underwent endotracheal tube intubation in an emergent fashion, subsequent transesophageal echocardiogram revealed moderate aortic valve stenosis without evidence of vegetation, and she was extubated after responding to diuretic therapy. She was also treated for coag negative staph bacteremia on 2 out of 2 blood cultures performed 09/22/2020. The patient subsequently left AGAINST MEDICAL ADVICE shortly after being extubated. She presented to the outpatient cardiology clinic at [facility] yesterday and was noted to be short of breath with minimal exertion with recurrent significant lower extremity edema I was referred for hospitalization. At the time of my assessment, she is comfortable, sitting upright, eating her meal, she responded well to IV furosemide 40 mg twice daily with significant urine output. She states that she has been adherent to taking her outpatient diuretic therapy, furosemide 40 mg twice daily, and that she had also been on doxycycline as per discharge plan. Cardiac History: Evaluation for unstable angina, January,, prompting cardiac catheterizat ion, 02/23/2020 drug-eluting stents to the right PDA branch of the right coronary artery. Per report, findings at the time were notable for 30 to 40% mid LAD stenosis 40% stenosis of the proximal circumflex was large and codominant with a 90% stenosis in the mid PDA (treated with drug-eluting stent), 70% distal PDA stenosis, 20% mid circumflex stenosis The previously placed stent in the ramus intermedius was patent with 30% stenosis just proximal to the stent Longstanding history of abnormal aortic valve Transesophageal echocardiogram performed Aug, 2017 revealing trileaflet aortic valve (per my personal review of images today 09/18/2020) with premature calcification Transthoracic performed April, suggestive of moderate aortic valve stenosis Transthoracic echocardiogram performed 09/18/2020, interpreted by the undersigned, LVEF 60 to 65% Transesophageal echocardiogram 09/19/2020, moderate aortic valve stenosis (trileaflet valve) Allergies Allergy/AdvReac Type Severity Reaction Status Date / Time lidocaine Allergy Intermediate HIVES Verified 10/10/20 18:54 procaine Allergy Intermediate HIVES Verified 10/10/20 18:54 Penicillins Allergy Mild HAD NO Verified 10/10/20 18:54 PROBLEM WITH ZOSYN strawberry Allergy Mild HIVES Verified 10/10/20 18:54 cephalexin AdvReac Intermediate YEAST Verified 10/10/20 18:54 INFECTIONS tramadol AdvReac Intermediate SEIZURES Verified 10/10/20 18:54 azithromycin AdvReac Mild STOMACH Verified 10/10/20 18:54 PAIN Home Medications Medication Instructions Recorded Confirmed Type escitalopram oxalate [Lexapro] 20 mg PO QAM 05/30/18 10/10/20 History levetiracetam [Keppra] 500 mg PO BID 05/30/18 10/10/20 History lisinopril 2.5 mg PO QAM 09/08/18 10/10/20 History metformin 1,000 mg PO BID 12/19/18 10/10/20 History atorvastatin 80 mg PO HS 12/28/18 10/10/20 History albuterol sulfate 2 puff INHALATION Q6 PRN 11/06/19 10/10/20 History buspirone 15 mg PO BID 11/06/19 10/10/20 History medroxyprogesterone [Depo-Provera] 150 mg IM Q3M 11/06/19 10/10/20 History nitroglycerin [Nitrostat] 0.4 mg SUBLINGUAL UD PRN 11/06/19 10/10/20 History glipizide 10 mg PO DAILYBD 02/22/20 10/10/20 History aspirin 81 mg PO QAM 30 Days #30 tab 02/24/20 10/10/20 Rx clopidogrel 75 mg PO QAM 30 Days #30 tab 02/24/20 10/10/20 Rx metoprolol succinate 25 mg PO DAILY 05/23/20 10/10/20 History ferrous sulfate 325 mg PO QDB #30 tab 05/25/20 10/10/20 Rx gabapentin 400 mg PO TID 08/09/20 10/10/20 History potassium chloride [Klor-Con M20] 20 meq PO DAILY 08/09/20 10/10/20 History Asmanex Twisthaler 2 inh INHALATION DAILY 09/18/20 10/10/20 History Lantus Solostar U-100 Insulin 10 unit SUBCUT HS 09/18/20 10/10/20 History Victoza 3-Zac 1.2 mg SUBCUT DAILY 09/18/20 10/10/20 History buprenorphine-naloxone 1 tab SUBLINGUAL DAILY 09/18/20 10/10/20 History meclizine 25 mg PO TID PRN 09/18/20 10/10/20 History doxycycline hyclate 100 mg PO BID 21 Days #42 cap 09/23/20 10/10/20 Rx furosemide [Lasix] See Rx Instructions .ROUTE .COMPLEX 10/10/20 10/10/20 History Patient History Medical History Acute electrocardiogram changes Aortic regurgitation Aortic stenosis Asthma Atypical chest pain Cannabis abuse Chronic diastolic CHF (congestive heart failure) Coronary artery disease Depression Diabetes mellitus, type 2 Encounter for smoking cessation counseling GERD (gastroesophageal reflux disease) Hepatitis C "Antibiotic screen positive, quantitative RNA positive 08/30/17" Hepatosplenomegaly History of drug abuse History of DVT (deep vein thrombosis) History of renal calculi Hypertension Hypocalcemia Opiate abuse, continuous Overdose Seizure disorder Surgical History History of cardiac cath 2017- 1 ROJAS to ramus, 2 ROJAS to L circumflex. 40-50% plaque to LAD 2018- distal disease (80%) within PDA History of carpal tunnel surgery History of lumbar spinal fusion Hx of tonsillectomy S/P coronary artery stent placement Status post cholecystectomy Family History Other Diabetes Heart disease Hypertension Kidney stones Seizures Social History Smoking Status: Current every day smoker Tobacco Type: Cigarettes Cigarettes Per Day: 1/2 pack per day; Number of Years Since Quit: 31; Second Hand Exposure: Yes; Tobacco Cessation Education Requested by Patient: No Hx Alcohol Use: No (quit in 2006) Hx Substance Use: Yes (3 yrs free of drugs) Non-Prescribed Medications: Heroin, IV Drugs and Methamphetamines Last Used Substance: Unknown Last Used Substance Other:: 1.5 YEARS AGO Substance Use Type Other:: 1.5 years ago Preferred Language: Telugu Communication Ability: Effective Visual Impairment: No Limitations Hearing Ability: Normal Pen Ruler Operator Required: No Beliefs That Will Affect Care: None marital status: Single Current Living Situation: Significant Other Current Living Situation Comment: LIVES WITH ROOMMATES Feels Safe at Home: Yes Safety Concerns: Feels Safe At This Time Assistive Devices: Oxygen - Continuous Review of Systems Review of Systems: All systems reviewed & are unremarkable except as noted in HPI & below Physical Exam Physical Exam: Temp Pulse Resp BP Pulse Ox 36.7 C 68 20 110/68 96 10/11/20 15:22 10/11/20 15:22 10/11/20 15:22 10/11/20 15:22 10/11/20 15:22 Constitutional: WD/WN, vitals as above Respiratory: normal respiratory effort, lungs clear to auscultation Cardiovascular: Rate/Rhythm: regular rhythm Heart Sounds: + murmur (2/6 systolic murmur) Extremities: + edema (Right greater than left lower extremity edema) Gastrointestinal (Abdomen): normal bowel sounds, soft, nontender, no hepatosplenomegaly Neurologic: PERRL, EOMI, accommodation nl, no face palsy, no dysarthria Results & Data ([facility]) Vital Signs (Past 12 Hours) Vital Signs Temp Pulse Pulse Resp BP Pulse Ox 10/11/20 15:22 36.7 C 68 20 110/68 96 10/11/20 15:05 79 10/11/20 11:12 36.7 C 79 19 103/64 95 10/11/20 08:00 87 10/11/20 07:21 37.1 C 88 20 106/60 96 Laboratory Results Cardiac Enzymes 10/10/20 10/11/20 Range/Units 18:52 05:20 AST 19 (15-37) U/L Troponin I < 0.015 (0-0.045) ng/ml Coagulation 10/10/20 Range/Units 18:52 PT 11.1 (9.0-12.0) Seconds APTT 25.3 (21.0-31.0) Seconds CBC 10/10/20 10/11/20 Range/Units 18:52 05:20 WBC 15.71 H 12.37 H (4.8-10.8) K/uL RBC 4.26 3.95 L (4.2-5.4) M/uL Hgb 10.2 L 9.4 L (12.0-16.0) g/dL Hct 32.0 L 30.5 L (37-47) % Plt Count 334 319 (130-400) K/uL Neut # (Auto) 9.18 H 7.10 H (1.4-6.5) K/uL Lymph # (Auto) 4.53 H 3.66 H (1.2-3.4) K/uL Borden # (Auto) 1.01 H 0.80 H (0.11-0.59) K/uL Eos # (Auto) 0.89 H 0.73 H (0-0.5) K/uL Baso # (Auto) 0.06 0.04 (0-0.2) K/uL Comprehensive Metabolic Panel 10/10/20 10/11/20 Range/Units 18:52 05:20 Sodium 139 139 (136-145) mmol/L Potassium 3.3 L 3.7 (3.5-5.1) mmol/L Chloride 98 101 (98-107) mmol/L Carbon Dioxide 31 33 H (21-32) mmol/L BUN 10 9 (7-18) mg/dl Creatinine 1.00 0.81 (0.6-1.2) mg/dl Glucose 167 H 144 H (70-99) mg/dl Calcium 8.4 L 7.9 L (8.5-10.1) mg/dl AST 19 (15-37) U/L ALT 42 (12-78) U/L Alkaline Phosphatase 108 (45-117) U/L Total Protein 6.8 (6.4-8.2) gm/dl Albumin 2.9 L (3.4-5.0) gm/dl Intake and Output 10/11/20 10/11/20 10/11/20 06:59 14:59 22:59 Intake Total 905 / 1005 630 / 630 Output Total 1800 / 1800 1300 / 1300 Balance -895 / -795 -670 / -670 Intake: IV 905 / 1005 270 / 270 Magnesium Sulfate / D5w 1 gm In 100 / 200 100 ml @ 100 mls/hr IV Q1H [facility] Rx#:[id number] Vancomycin HCl 1,000 mg In 270 / 270 270 / 270 Sodium Chloride 0.9% 250 ml @ 200 mls/hr IV Q8H [facility] Rx#: [id number] Vancomycin HCl 1,750 mg In 535 / 535 Sodium Chloride 0.9% 500 ml @ 200 mls/hr IV NOW ONE Rx#: [id number] Oral 360 / 360 Output: Urine 1800 / 1800 400 / 400 Other 900 / 900 Other: Weight 88.9 kg 88.9 kg Weight Measurement Method Standing Scale Patient Weight 10/12/20 06:59 Weight 88.9 kg Diagnostic Findings EKG performed today revealed sinus rhythm at 92 bpm, mild nonspecific repolarization changes, as noted yesterday as well
[2020-10-11] MEDS: ATORVASTATIN 40 MG TAB PO SCH (20:24)
[2020-10-12] MEDS ORDERED: VANCOMYCIN TROUGH ONE (03:30)
[2020-10-12 04:22] LABS: Hematocrit (blood only) 29.9 % (37-47); Hemoglobin 9.1 g/dL (12.0-16.0); Mean Corpuscular Hemoglobin 23.5 pg (25-34); Mean Corpuscular Hgb Conc 30.4 g/dL (32-36); Mean Corpuscular Volume 77.3 fL (80-100); Mean Platelet Volume 10.2 fL (7.4-10.4); Platelet Count 294 K/uL (130-400); RDW Coefficient of Variation 22.6 % (11.5-14.5); RDW Standard Deviation 63.2 fL (36.4-46.3); Red Blood Count 3.87 M/uL (4.2-5.4)
[2020-10-12 04:40] LABS: Calcium 8.6 mg/dl (8.5-10.1); Creatinine Clr Calc Pharmacy 90.9 ml/min; Est GFR (African American) 95.2 ml/min; Est GFR (Non-African American) 82.2 ml/min; Potassium 3.9 mmol/L (3.5-5.1)
[2020-10-12 04:46] LABS: Ferritin 67.3 ng/ml (8-388)
[2020-10-12] MEDS: VANCOMYCIN HCL 1,000 MG in SODIUM CHLORIDE 0.9% 250 ML IV SCH (05:14)
[2020-10-12] MEDS: HEPARIN SOD 5,000 UNIT/0.5 ML VIAL SQ SCH ×3 (05:16→20:55)
[2020-10-12] MEDS ORDERED: FLUCONAZOLE 50 MG TAB PO ONE (05:56)
[2020-10-12] MEDS: BUPRENORPHINE/NALOXONE 8/2 MG TAB SL SCH ×3 (06:30→18:00)
[2020-10-12] MEDS: GABAPENTIN 600 MG TAB PO SCH ×3 (07:57→20:54)
[2020-10-12] MEDS: levETIRAcetam 500 MG TAB PO SCH ×2 (07:58→20:55)
[2020-10-12] MEDS: busPIRone 15 MG TAB PO SCH ×2 (07:58→20:54)
[2020-10-12] MEDS: FERROUS SULFATE 325 MG TAB PO SCH (07:58)
[2020-10-12] MEDS: POTASSIUM CHLORIDE CRTAB 20 MEQ TABCR PO SCH (07:58)
[2020-10-12] MEDS: ASPIRIN 81 MG ECTAB PO SCH (07:59)
[2020-10-12] MEDS: CLOPIDOGREL BISULFATE 75 MG TAB PO SCH (07:59)
[2020-10-12] MEDS: FLUTICASONE FUROATE 200MCG 14 PUFFS/INHALER INH SCH (08:00)
[2020-10-12] MEDS: ESCITALOPRAM OXALATE 20 MG TAB PO SCH (08:00)
[2020-10-12] MEDS: SPIRONOLACTONE 25 MG TAB PO SCH (08:02)
[2020-10-12] MEDS: INSULIN ASPART 100 UNITS/ML 3 ML PEN SC SCH ×4 (08:05→20:58)
[2020-10-12] MEDS: METOPROLOL SUCC 25MG EXT REL TAB PO SCH ×2 (08:17→15:39)
[2020-10-12] MEDS: lisinopril 2.5 MG TAB PO SCH (08:17)
[2020-10-12] MEDS: FUROSEMIDE 40 MG in SYRINGE 0 ML IV SCH ×2 (08:17→15:39)
--- NOTE | 2020-10-12 13:03 | Pharmacy Report ---
Pharmacy Abx Dose Short Note - Date of Service October 12, 2020 - Assessment & Plan Assessment 40 year old F receiving vancomycin for treatment of bilateral lower extremity cellulitis. Leukocytosis improving (15 -> 10 K), remains afebrile. Day # 3 of antimicrobial therapy. Blood cultures x 2 (10/10): no growth to date Blood cultures x 2 (09/22): coagulase negative Staphylococcus (resistant to oxacillin) Plan Vancomycin * Trough level of 20.5 mcg/mL is supratherapeutic * Change to 750 mg IV every 8 hours * Goal trough level for cellulitis : 10 to 20 mcg/mL * Trough or random level ordered for: 10/13/20 @9240 Pharmacy will continue to follow and will adjust dose/frequency as necessary. Thank you.
--- NOTE | 2020-10-12 13:21 | Gastrointestinal Consultation ---
Date of Consultation October 12, 2020 Assessment & Plan (1) Microcytic anemia: It is reasonable to rule out any GI lesions which could be causing slow blood loss. Per Dr. Rutherford, small bowel AVMs are a common in pts with Aortic Stenosis. We will arrange outpatient EGD and colonoscopy. Patient tells us that she has family and friends available to provide transportation and agrees to prepping at home. Discussed with Dr. Rutherford by [place] [facility]. OK to go off Plavix for 5 days prior and OK for OP scopes. Also per Dr. Rutherford - we should consider VCE if no abnormal findings on EGD, Colonoscopy. Our office will contact her to arrange. Present on Admission?: Yes (2) Hepatitis C: Chronic HCV, Seen by Dr. Loya in 2018, did not f/u for fibroscan and labs. Not treated. Will ask our office schedulers to arrange OP f/u w Dr. Loya. Present on Admission?: Yes Supervising Physician Co-Signing Physician Notes I have personally seen and examined the patient with JOSETTE Galvez on 10/12/20. Her note reflects my exam and findings. I agree with her impression and plan. Will arrange out patient bi-directional endoscopy for anemia. Gian Woo M.D. History of Present Illness Reason for Consultation: microcytic anemia Requesting Physician: Dr. Heard Attending Physician: Debora Moon MD History of Present Illness Ms. Fritz Gonzalez is a 40 yr old female pt of Dr. Iverson with a hx of CVD S/PE cardiac stenting with drug-eluting stents x2 vessels in January 2020, CHF, congenitally abnormal aortic valve with mild to moderate aortic stenosis and aortic regurg, DM 2 with neuropathy, HTN, hyperlipidemia, recurrent lower leg cellulitis, prior polysubstance abuse, asthma, continuing to smoke. She had a hospitalization in the beginning of September for respiratory failure, was intubated, had encephalopathy possibly secondary to drug withdrawal from chronic Suboxone use, when her symptoms improved, despite being told that she had staph areas on blood cultures she signed out AMA. She was admitted from her primary care provider's office yesterday when she presented for lower extremity edema, 10 pound weight gain and shortness of breath. GI is consulted for microcytic anemia. It appears that between May 2019 and today her Hb dropped from 13->9.1, with most of that decline occurring between May and January of last year. In August of this year her hemoglobin was at its lowest at 5.7. She has not required transfusion. Currently, MCV is low at 77. It has been decreased since January 2020. She is seen and examined while she is sitting up in bed. She is awake alert oriented. She denies any recent abdominal pain, nausea, vomiting, diarrhea or constipation. She does not recall ever having had any red or black bowel movements. She denies any recent vomiting. She has never undergone EGD or colonoscopy. Allergies Allergy/AdvReac Type Severity Reaction Status Date / Time lidocaine Allergy Intermediate HIVES Verified 10/10/20 18:54 procaine Allergy Intermediate HIVES Verified 10/10/20 18:54 Penicillins Allergy Mild HAD NO Verified 10/10/20 18:54 PROBLEM WITH ZOSYN strawberry Allergy Mild HIVES Verified 10/10/20 18:54 cephalexin AdvReac Intermediate YEAST Verified 10/10/20 18:54 INFECTIONS tramadol AdvReac Intermediate SEIZURES Verified 10/10/20 18:54 azithromycin AdvReac Mild STOMACH Verified 10/10/20 18:54 PAIN Home Medications Medication Instructions Recorded Confirmed Type escitalopram oxalate [Lexapro] 20 mg PO QAM 05/30/18 10/10/20 History levetiracetam [Keppra] 500 mg PO BID 05/30/18 10/10/20 History lisinopril 2.5 mg PO QAM 09/08/18 10/10/20 History metformin 1,000 mg PO BID 12/19/18 10/10/20 History atorvastatin 80 mg PO HS 12/28/18 10/10/20 History albuterol sulfate 2 puff INHALATION Q6 PRN 11/06/19 10/10/20 History buspirone 15 mg PO BID 11/06/19 10/10/20 History medroxyprogesterone [Depo-Provera] 150 mg IM Q3M 11/06/19 10/10/20 History nitroglycerin [Nitrostat] 0.4 mg SUBLINGUAL UD PRN 11/06/19 10/10/20 History glipizide 10 mg PO DAILYBD 02/22/20 10/10/20 History aspirin 81 mg PO QAM 30 Days #30 tab 02/24/20 10/10/20 Rx clopidogrel 75 mg PO QAM 30 Days #30 tab 02/24/20 10/10/20 Rx metoprolol succinate 25 mg PO DAILY 05/23/20 10/10/20 History ferrous sulfate 325 mg PO QDB #30 tab 05/25/20 10/10/20 Rx gabapentin 400 mg PO TID 08/09/20 10/10/20 History potassium chloride [Klor-Con M20] 20 meq PO DAILY 08/09/20 10/10/20 History Asmanex Twisthaler 2 inh INHALATION DAILY 09/18/20 10/10/20 History Lantus Solostar U-100 Insulin 10 unit SUBCUT HS 09/18/20 10/10/20 History Victoza 3-Zac 1.2 mg SUBCUT DAILY 09/18/20 10/10/20 History buprenorphine-naloxone 1 tab SUBLINGUAL DAILY 09/18/20 10/10/20 History meclizine 25 mg PO TID PRN 09/18/20 10/10/20 History doxycycline hyclate 100 mg PO BID 21 Days #42 cap 09/23/20 10/10/20 Rx furosemide [Lasix] See Rx Instructions .ROUTE .COMPLEX 10/10/20 10/10/20 History Patient History Medical History Acute electrocardiogram changes Aortic regurgitation Aortic stenosis Asthma Atypical chest pain Cannabis abuse Chronic diastolic CHF (congestive heart failure) Coronary artery disease Depression Diabetes mellitus, type 2 Encounter for smoking cessation counseling GERD (gastroesophageal reflux disease) Hepatitis C "Antibiotic screen positive, quantitative RNA positive 08/30/17" Hepatosplenomegaly History of drug abuse History of DVT (deep vein thrombosis) History of renal calculi Hypertension Hypocalcemia Opiate abuse, continuous Overdose Seizure disorder Surgical History History of cardiac cath 2017- 1 ROJAS to ramus, 2 ROJAS to L circumflex. 40-50% plaque to LAD 2018- distal disease (80%) within PDA History of carpal tunnel surgery History of lumbar spinal fusion Hx of tonsillectomy S/P coronary artery stent placement Status post cholecystectomy Family History Other Diabetes Heart disease Hypertension Kidney stones Seizures Social History Smoking Status: Current every day smoker Tobacco Type: Cigarettes Cigarettes Per Day: 1/2 pack per day; Number of Years Since Quit: 31; Second Hand Exposure: Yes; Tobacco Cessation Education Requested by Patient: No Hx Alcohol Use: No (quit in 2006) Hx Substance Use: Yes (3 yrs free of drugs) Non-Prescribed Medications: Heroin, IV Drugs and Methamphetamines Last Used Substance: Unknown Last Used Substance Other:: 1.5 YEARS AGO Substance Use Type Other:: 1.5 years ago Preferred Language: Czech Communication Ability: Effective Visual Impairment: No Limitations Hearing Ability: Normal Elementary Classroom Teacher Required: No Beliefs That Will Affect Care: None marital status: Single Current Living Situation: Significant Other Current Living Situation Comment: LIVES WITH ROOMMATES Feels Safe at Home: Yes Safety Concerns: Feels Safe At This Time Assistive Devices: None Review of Systems Review of Systems: ROS: Gen: + 10 pound weight loss; denies weakness, fevers, weight loss Eyes: No eye redness, or pain, no recent vision changes Resp: + Mild SOB, no cough Cardio:+ Weight gain, lower leg edema, no palpitations/irregular beats, no chest pain GI: No abdominal pain, no nausea/vomiting : Denies pain on urination Skin: + Prior lower leg cellulitis, this seems to be resolved now. No jaundice, itching or new rashes Physical Exam Constitutional: WD/WN, vitals as above Eyes: PERRL, conjunctivae normal, anicteric sclerae ENMT: external ear and nose normal, oropharynx normal Neck: trachea midline, no thyromegaly Respiratory: normal respiratory effort, lungs clear to auscultation Cardiovascular: Rate/Rhythm: regular rate and regular rhythm Heart Sounds: + murmur (3/6 systolic murmur consistent with previously diagnosed aortic stenosis) Vessels: no JVD Extremities: + edema (Minimal bilateral lower leg edema) Gastrointestinal (Abdomen): normal bowel sounds, soft, nontender, no he patosplenomegaly Obese Musculoskeletal: no cyanosis or clubbing, extremities motor strength 5/5 Skin: + lesion (From itching, on lower arm); no rashes, no ulcers and no jaundice Neurologic: PERRL, EOMI, accommodation nl, no face palsy, no dysarthria Psychiatric: A+Ox3, euthymic affect Eye Contact: good eye contact Motor Behavior: n tremor Speech: + pressured speech (Slightly) Lymphatic: no cervical or axillary lymphadenopathy Results & Data ([facility]) Vital Signs (Past 12 Hours) Vital Signs Temp Pulse Pulse Resp BP Pulse Ox 10/12/20 11:32 36.8 C 68 19 109/62 99 10/12/20 08:15 72 10/12/20 08:07 74 100/59 L 10/12/20 07:26 36.9 C 68 20 91/50 L 95 10/12/20 03:10 36.7 C 85 18 106/59 L 90 Laboratory Results WBC 10, Hb 9.1, HCT 29, platelets 294, NA 135, K3.7, BUN 10, CR 0.87, glucose 155, MCV 77, iron 37, ferritin 67. Diagnostic Findings CXR 10/10/2020: 1. Pulmonary vascular congestion. 2. There are bilateral interstitial airspace opacities. This could represent mild pulmonary edema and/or an infectious/inflammatory pneumonitis. Clinical correlation will be required.
[2020-10-12] MEDS ORDERED: VANCOMYCIN HCL 750 MG in SODIUM CHLORIDE 0.9% 250 ML IV SCH (14:00)
--- NOTE | 2020-10-12 14:13 | Cardiology Progress Note ---
Date of Service October 12, 2020 Assessment & Plan (1) Acute on chronic congestive heart failure: * Continue furosemide 40 mg IV twice daily. (2) Cellulitis of both lower extremities: * Blood cultures this admission negative thus far. Continue vancomycin for now. (3) Microcytic anemia: * Ongoing macrocytic anemia, iron levels at lower limit of normal. * GI input noted and appreciated. Agree with return for outpatient endoscopy, okay to hold clopidogrel for 5 days prior to procedure as patient is over 6 months removed from her coronary stent. Continue aspirin without interruption for endoscopy. * Of note, small bowel AVMs are associated with aortic stenosis, this may need to be pursued if another source is not identified. Admission and Anticipated Discharge Date Admission Date: October 10, 2020 Subjective Patient seen in follow-up for chief complaint of shortness of breath and lower extremity edema. She is trending toward improvement. Sinus rhythm in the range of 68 bpm noted on telemetry. Physical Exam Physical Exam: Temp Pulse Resp BP Pulse Ox 36.8 C 68 19 109/62 99 10/12/20 11:32 10/12/20 11:32 10/12/20 11:32 10/12/20 11:32 10/12/20 11:32 Constitutional: WD/WN, vitals as above Respiratory: Mildly reduced breath sounds at the bases Cardiovascular: Rate/Rhythm: regular rhythm Heart Sounds: + murmur (1/6 systolic murmur) Extremities: + edema (1+ bilateral lower extremity edema, slightly worse in the right leg) Neurologic: PERRL, EOMI, accommodation nl, no face palsy, no dysarthria Results & Data ([facility]) Vital Signs (Past 12 Hours) Vital Signs Temp Pulse Pulse Resp BP Pulse Ox 10/12/20 11:32 36.8 C 68 19 109/62 99 10/12/20 08:15 72 10/12/20 08:07 74 100/59 L 10/12/20 07:26 36.9 C 68 20 91/50 L 95 10/12/20 03:10 36.7 C 85 18 106/59 L 90 Laboratory Results CBC 10/12/20 Range/Units 03:40 WBC 10.20 (4.8-10.8) K/uL RBC 3.87 L (4.2-5.4) M/uL Hgb 9.1 L (12.0-16.0) g/dL Hct 29.9 L (37-47) % Plt Count 294 (130-400) K/uL Comprehensive Metabolic Panel 10/12/20 Range/Units 03:40 Sodium 135 L (136-145) mmol/L Potassium 3.9 (3.5-5.1) mmol/L Chloride 104 (98-107) mmol/L Carbon Dioxide 31 (21-32) mmol/L BUN 10 (7-18) mg/dl Creatinine 0.87 (0.6-1.2) mg/dl Glucose 175 H (70-99) mg/dl Calcium 8.6 (8.5-10.1) mg/dl Intake and Output 10/11/20 10/12/20 10/12/20 22:59 06:59 14:59 Intake Total 590 / 1730 510 / 1730 Output Total 525 / 1825 Balance 590 / -95 -15 95 Intake: IV 270 / 810 270 / 810 Vancomycin HCl 1,000 mg In 270 / 810 270 / 810 Sodium Chloride 0.9% 250 ml @ 200 mls/hr IV Q8H [facility] Rx#: [id number] Oral 320 / 920 240 / 920 Output: Urine 525 / 925 Other: # Unmeasured Voids 2 Weight 88.9 kg 89 kg Weight Measurement Method Standing Scale
--- NOTE | 2020-10-12 18:04 | Hospitalist Progress Note ---
Date of Service October 12, 2020 Assessment & Plan (1) Acute on chronic congestive heart failure: presented with shortness of breath Acute on chronic CHF with preserved LV function , severe valvular heart disease /aortic stenosis : Continue Lasix IV BID and aldactone Cardiology on board Plan to transition to PO lasix (2) Cellulitis of both lower extremities: Currently on Iv vancomycin, will transition to PO clindamycin 450mg TID in am Blood cx no growth Clinically improves (3) Bacteremia: Recent hx of gram positive bacteremia- Coag neg staph not lugdunensis Blood cx on admission no growth (4) Anemia, iron deficiency: Microcytic anemia last admission required PRBC transfusion iron studies ordered on dual antiplatelet therapy for hx of CAD s/p PTCA Gastro on board Will need outpatient endoscopy okay with cardio to hold clopidogrel for 5 days prior to procedure as patient is over 6 months removed from her coronary stent. Continue aspirin without interruption for endoscopy. Hx of CAD s/p PTCA okay with cardio to hold clopidogrel for 5 days prior to procedure as patient is over 6 months removed from her coronary stent. Continue aspirin without interruption for endoscopy. hx of drug abuse : on suboxone Full code DVT prophylaxis: sub q heparin Disposition : Will discharge once medically stable Admission and Anticipated Discharge Date Admission Date: October 10, 2020 Subjective Pt was seen and examined for follow up of Shortness of breath and cellulitis Lying in bed with no distress Pt said that she feels much better Denies any chest pain, palpitation, dizziness and SOB Review of Systems Review of Systems: All systems reviewed & are unremarkable except as noted in Subjective Physical Exam Physical Exam: General- No acute distress Head- atraumatic Eyes- PERRL, EOMI, ENT- oropharynx clear Neck- supple, no JVD Lungs- clear to auscultation Heart- regular rhythm; +murmur Abdomen- normal bowel sounds, soft, nontender Extremities- no calf tenderness, RLE mild erythema Neuro- alert, oriented x 3; PERRL, EOMI; no facial palsy; no dysarthria Skin- warm & dry Results & Data Results & Data ([facility]) Vital Signs (Past 12 Hours) Vital Signs Temp Pulse Pulse Resp BP Pulse Ox 10/12/20 16:22 69 10/12/20 15:12 36.8 C 71 21 132/60 94 10/12/20 11:32 36.8 C 68 19 109/62 99 10/12/20 08:15 72 10/12/20 08:07 74 100/59 L 10/12/20 07:26 36.9 C 68 20 91/50 L 95
[2020-10-12] MEDS: CLINDAMYCIN HCL 150 MG CAP PO SCH (20:52)
[2020-10-12] MEDS: ATORVASTATIN 40 MG TAB PO SCH (20:54)
[2020-10-12] MEDS: INSULIN GLARGINE SOLOSTAR 100 UNITS/ML 3 ML PEN SQ SCH (21:03)
[2020-10-13] MEDS: CLINDAMYCIN HCL 150 MG CAP PO SCH (05:48)
[2020-10-13] MEDS: BUPRENORPHINE/NALOXONE 8/2 MG TAB SL SCH (05:49)
[2020-10-13] MEDS: HEPARIN SOD 5,000 UNIT/0.5 ML VIAL SQ SCH (05:49)
[2020-10-13 05:56] LABS: Hematocrit (blood only) 32.6 % (37-47); Mean Corpuscular Hemoglobin 23.9 pg (25-34); Mean Corpuscular Hgb Conc 30.7 g/dL (32-36); Mean Platelet Volume 10.4 fL (7.4-10.4); Platelet Count 323 K/uL (130-400); RDW Coefficient of Variation 22.5 % (11.5-14.5); RDW Standard Deviation 63.4 fL (36.4-46.3); Red Blood Count 4.18 M/uL (4.2-5.4)
[2020-10-13 06:32] LABS: Calcium 9.5 mg/dl (8.5-10.1); Creatinine Clr Calc Pharmacy 98.1 ml/min; Est GFR (African American) 103.8 ml/min; Est GFR (Non-African American) 89.6 ml/min; Potassium 4.4 mmol/L (3.5-5.1)
[2020-10-13] MEDS: levETIRAcetam 500 MG TAB PO SCH (09:14)
[2020-10-13] MEDS: POTASSIUM CHLORIDE CRTAB 20 MEQ TABCR PO SCH (09:14)
[2020-10-13] MEDS: GABAPENTIN 600 MG TAB PO SCH (09:14)
[2020-10-13] MEDS: busPIRone 15 MG TAB PO SCH (09:14)
[2020-10-13] MEDS: FERROUS SULFATE 325 MG TAB PO SCH (09:15)
[2020-10-13] MEDS: ESCITALOPRAM OXALATE 20 MG TAB PO SCH (09:15)
[2020-10-13] MEDS: SPIRONOLACTONE 25 MG TAB PO SCH (09:15)
[2020-10-13] MEDS: ASPIRIN 81 MG ECTAB PO SCH (09:15)
[2020-10-13] MEDS: CLOPIDOGREL BISULFATE 75 MG TAB PO SCH (09:15)
[2020-10-13] MEDS: METOPROLOL SUCC 25MG EXT REL TAB PO SCH (09:15)
[2020-10-13] MEDS: lisinopril 2.5 MG TAB PO SCH (09:16)
[2020-10-13] MEDS: FLUTICASONE FUROATE 200MCG 14 PUFFS/INHALER INH SCH (09:16)
[2020-10-13] MEDS: INSULIN ASPART 100 UNITS/ML 3 ML PEN SC SCH (09:17)
--- NOTE | 2020-10-13 11:05 | Cardiology Progress Note ---
Date of Service October 13, 2020 Assessment & Plan (1) Acute on chronic congestive heart failure: * Heart failure with preserved LVEF * Transition to torsemide 20 mg orally two times per day, first think in morning and afternoon (replaces LABOR SERVICE REPRESENTATIVE furosemide) * Spironolactone 25 mg added this admission. * Has moderate to borderline severe , CW Doppler by TTE 08/2020 3.8-4 m/s, PEDRO LUIS by planimetry on STEVEN 1.07 cm2. Concerned with patient's candidacy for cardiac surgery given h/o substance abuse, nonadherence, recent recurrent cellulitis. For now, ongoing medical treatment felt to be best option. * pt states she has been taking furosemide outside hospital , but notes dietary nonadherence, eating salty Albert noodles so this may explain fluid retention. * She is on chronic gabapentin which she states she needs for neuropathic pain. This may contribute to fluid retention. Pt states she cannot take duloxetine. * pt eager for discharge, will send home on medication plan as above, follow up with cardio within 2 weeks. (2) Cellulitis of both lower extremities: * Blood cultures this admission negative thus far. Transition to oral antibiotics (3) Microcytic anemia: * Ongoing macrocytic anemia, iron levels at lower limit of normal. * GI input noted and appreciated. Agree with return for outpatient endoscopy, okay to hold clopidogrel for 5 days prior to procedure as patient is over 6 months removed from her coronary stent. Continue aspirin without interruption for endoscopy. * Of note, small bowel AVMs are associated with aortic stenosis, this may need to be pursued if another source is not identified. Admission and Anticipated Discharge Date Admission Date: October 10, 2020 Subjective Pt was seen and examined for follow up of Shortness of breath and cellulitis Sitting in bed with no distress Pt said that she feels much better Denies any chest pain, palpitation, dizziness and SOB Physical Exam Physical Exam: Temp Pulse Resp BP Pulse Ox 36.8 C 71 18 99/60 L 98 10/13/20 08:09 10/13/20 08:09 10/13/20 08:09 10/13/20 08:09 10/13/20 08:09 Constitutional: WD/WN, vitals as above Respiratory: normal respiratory effort, lungs clear to auscultation Cardiovascular: Rate/Rhythm: regular rhythm Heart Sounds: + murmur (1/6 SM) trace to 1+ LE edema Gastrointestinal (Abdomen): normal bowel sounds, soft, nontender, no hepatosplenomegaly Neurologic: PERRL, EOMI, accommodation nl, no face palsy, no dysarthria Results & Data ([facility]) Vital Signs (Past 12 Hours) Vital Signs Temp Pulse Pulse Resp BP Pulse Ox 10/13/20 08:09 36.8 C 71 18 99/60 L 98 10/13/20 08:00 68 10/13/20 02:56 36.8 C 71 18 96/53 L 93 10/12/20 23:17 37.0 C 68 16 106/66 92 Laboratory Results CBC 10/13/20 Range/Units 05:20 WBC 10.60 (4.8-10.8) K/uL RBC 4.18 L (4.2-5.4) M/uL Hgb 10.0 L (12.0-16.0) g/dL Hct 32.6 L (37-47) % Plt Count 323 (130-400) K/uL Comprehensive Metabolic Panel 10/13/20 Range/Units 05:20 Sodium 138 (136-145) mmol/L Potassium 4.4 (3.5-5.1) mmol/L Chloride 105 (98-107) mmol/L Carbon Dioxide 27 (21-32) mmol/L BUN 14 (7-18) mg/dl Creatinine 0.81 (0.6-1.2) mg/dl Glucose 145 H (70-99) mg/dl Calcium 9.5 (8.5-10.1) mg/dl Intake and Output 10/12/20 10/13/20 10/13/20 22:59 06:59 14:59 Intake Total 240 / 1825 840 / 1825 Output Total 1099 550 / 550 Balance -860 / -275 -160 / -275 -550 / -550 Intake: Oral 240 / 1560 840 / 1560 Output: Urine 1099 550 / 550 Other: Weight 89.6 kg Weight Measurement Method Built in [facility]
--- NOTE | 2020-10-13 11:13 | Hospitalist Progress Note ---
Date of Service October 13, 2020 Assessment & Plan (1) Acute on chronic congestive heart failure: presented with shortness of breath Acute on chronic CHF with preserved LV function , severe valvular heart disease /aortic stenosis : Continue Lasix IV BID and Aldactone Cardiology on board Will transition to PO Torsemide 20mg BID Continue spironolactone 25mg on discharge Case discussed with cardiology Ok from cardiology standpoint to discharge home Follow up with cardiology in 2 weeks Check BMP in 1 week (2) Cellulitis of both lower extremities: Currently on Iv vancomycin, will transition to PO clindamycin 450mg TID in am Blood cx no growth Continue Clindamycin to complete the course Clinically improves (3) Bacteremia: Recent hx of gram positive bacteremia- Coag neg staph not lugdunensis Blood cx on admission no growth (4) Anemia, iron deficiency: Microcytic anemia last admission required PRBC transfusion iron studies ordered on dual antiplatelet therapy for hx of CAD s/p PTCA Gastro on board Will need outpatient endoscopy okay with cardio to hold clopidogrel for 5 days prior to procedure as patient is over 6 months removed from her coronary stent. Continue aspirin without interruption for endoscopy. Follow up with GI outpatient Hx of CAD s/p PTCA okay with cardio to hold clopidogrel for 5 days prior to procedure as patient is over 6 months removed from her coronary stent. Continue aspirin without interruption for endoscopy. Hx of drug abuse Continue Suboxone Full code DVT prophylaxis sub q heparin Disposition Will discharge home today Admission and Anticipated Discharge Date Admission Date: October 10, 2020 Subjective Pt was seen and examined for follow up of Shortness of breath and cellulitis Sitting in chair with no distress and feels comfortable Pt said that she feels much better and getting ready to go home She said that she has to leave around lunch time Denies any chest pain, palpitation, dizziness and SOB Review of Systems Review of Systems: All systems reviewed & are unremarkable except as noted in Subjective Physical Exam Physical Exam: General- No acute distress Head- atraumatic Eyes- PERRL, EOMI, ENT- oropharynx clear Neck- supple, no JVD Lungs- clear to auscultation Heart- regular rhythm; +murmur Abdomen- normal bowel sounds, soft, nontender Extremities- no calf tenderness, RLE mild erythema Neuro- alert, oriented x 3; PERRL, EOMI; no facial palsy; no dysarthria Skin- warm & dry Results & Data Results & Data ([facility]) Vital Signs (Past 12 Hours) Vital Signs Temp Pulse Pulse Resp BP Pulse Ox 10/13/20 08:09 36.8 C 71 18 99/60 L 98 10/13/20 08:00 68 10/13/20 02:56 36.8 C 71 18 96/53 L 93 10/12/20 23:17 37.0 C 68 16 106/66 92
[2020-10-13] MEDS: FUROSEMIDE 40 MG in SYRINGE 0 ML IV SCH (11:22)
--- NOTE | 2020-10-13 11:34 | Discharge Summary ---
Date of Service October 13, 2020 Admission HPI Per Admitting Provider CHIEF COMPLAINT: Lower extremity cellulitis and edema. HISTORY OF PRESENT ILLNESS: A 40-year-old female with a past medical history significant for premature coronary artery disease, status post 2-vessel coronary intervention and drug-eluting stent to ramus intermedius, and distal circumflex and again ACETYLENE BURNER and drug-eluting stents to the RCA, PDA on 02/23/2020. Congenital abnormal aortic valve with akmi-[id number] aortic stenosis and aortic regurgitation, type 2 diabetes with diabetic neuropathy, hypertension, hyperlipidemia, recurrent soft tissue infection, chronic hepatitis C, opioid dependence, polysubstance abuse, vitamin D deficiency, asthma, diastolic CHF with aortic valve stenosis, iron deficiency anemia, depression. The patient was recently in the hospital due to acute hypoxic respiratory failure, [id number] heart failure with preserved EF, pulmonary edema, She was intubated at that time during hospitalization. During hospitalization, she had an episode of encephalopathy, thought to be secondary to, thought to be from drug withdrawal because of chronic Suboxone use or ICU delirium and was placed on Precedex drip for more than 24 hours. Then the patient did fine and after that she was transferred out of the ICU. Then the patient signed out AMA. Blood culture grew out two bottles positive for staph aureus. The patient was informed of the positive blood culture, still she signed out AMA. The patient went to PCP's office on 10/05/2020 with complaints of lower extremity edema and slight shortness of breath and weight gain of 10 pounds and right lower extremity Doppler was done, but there was no DVT and the lab work seemed to be unremarkable and she went to see cardiology today and because of lower extremity cellulitis and CHF and questionable compliance with the medications, she was advised to come to the hospital. Currently, the patient is drowsy, but answering questions appropriately, speaks in a low voice. Has swelling of the lower extremity and weight gain. Denies any chest pain or shortness of breath. She states she is ambulating okay. She denies any cough. Denies any fevers. No headache, no blurred visions, no runny nose. Her appetite is okay. No nausea, no vomiting, normal bowel movements. The patient lives with her boyfriend. Admission Exam Per Admitting Provider GENERAL: The patient is moderately built, drowsy, but not in acute distress. VITAL SIGNS: Temperature 36.8, pulse 104, respiratory rate 16, blood pressure 108/62, oxygen 93% on room air. HEENT: Pupils equal, round and reactive to light. Oral mucosa moist. NECK: Supple. No neck masses seen. CARDIOVASCULAR: S1 and S2 heard. Regular rate and rhythm. No murmur, no gallop. RESPIRATORY: Normal AP diameter, no accessory muscle use. No wheeze, no crackles. ABDOMEN: Soft, bowel sounds present, nontender, no distention. CENTRAL NERVOUS SYSTEM: Cranial nerves II through XII are grossly intact. Nonfocal. Drowsy, but alert and oriented x3. Speech is low, but clear. No facial droop. Insight good. Moves extremities. EXTREMITIES: Bilateral lower extremity gross edema present with erythematous changes and some scabs seen. Principal Diagnosis Acute on chronic congestive heart failure: Cellulitis of both lower extremities: Anemia, iron deficiency: Hx of CAD s/p PTCA Hx of drug abuse Discharge Exam General- No acute distress Head- atraumatic Eyes- PERRL, EOMI, ENT- oropharynx clear Neck- supple, no JVD Lungs- clear to auscultation Heart- regular rhythm; +murmur Abdomen- normal bowel sounds, soft, nontender Extremities- no calf tenderness, RLE mild erythema Neuro- alert, oriented x 3; PERRL, EOMI; no facial palsy; no dysarthria Skin- warm & dry Discharge Data Allergies Allergy/AdvReac Type Severity Reaction Status Date / Time lidocaine Allergy Intermediate HIVES Verified 10/10/20 18:54 procaine Allergy Intermediate HIVES Verified 10/10/20 18:54 Penicillins Allergy Mild HAD NO Verified 10/10/20 18:54 PROBLEM WITH ZOSYN strawberry Allergy Mild HIVES Verified 10/10/20 18:54 cephalexin AdvReac Intermediate YEAST Verified 10/10/20 18:54 INFECTIONS tramadol AdvReac Intermediate SEIZURES Verified 10/10/20 18:54 azithromycin AdvReac Mild STOMACH Verified 10/10/20 18:54 PAIN Consultations 10/10/20 20:28 ED Decision to Admit Stat 10/11/20 08:00 Consult Cardiology Routine 10/11/20 18:39 Consult Gastroenterology Routine Ordered Studies SINGLE VIEW CHEST CLINICAL HISTORY: Sepsis. FINDINGS: An AP, portable, upright chest radiograph is compared to study dated 09/20/2020 and correlated with chest CT dated 05/23/2020. The heart is top normal for projection. There is pulmonary vascular congestion. Interstitial airspace opacities are present in both lungs. No large pleural effusion or pneumothorax is seen. The skeletal structures are osteopenic. The bony thorax is grossly intact. IMPRESSION: 1. Pulmonary vascular congestion. 2. There are bilateral interstitial airspace opacities. This could represent mild pulmonary edema and/or an infectious/inflammatory pneumonitis. Clinical correlation will be required. ACT 112: Negative or not required by law. Electronically signed by: Ja Villanueva M.D. 10/10/2020 8:43 PM Dictated: 10/10/202040Transcribed: 10/10/202040 Hospital Course (1) Acute on chronic congestive heart failure: presented with shortness of breath Acute on chronic CHF with preserved LV function , severe valvular heart disease /aortic stenosis : Continue Lasix IV BID and Aldactone Cardiology on board Will transition to PO Torsemide 20mg BID Continue spironolactone 25mg on discharge Case discussed with cardiology Ok from cardiology standpoint to discharge home Follow up with cardiology in 2 weeks Check BMP in 1 week (2) Cellulitis of both lower extremities: Currently on Iv vancomycin, will transition to PO clindamycin 450mg TID in am Blood cx no growth Continue Clindamycin to complete the course Clinically improves (3) Bacteremia: Recent hx of gram positive bacteremia- Coag neg staph not lugdunensis Blood cx on admission no growth (4) Anemia, iron deficiency: Microcytic anemia last admission required PRBC transfusion iron studies ordered on dual antiplatelet therapy for hx of CAD s/p PTCA Gastro on board Will need outpatient endoscopy okay with cardio to hold clopidogrel for 5 days prior to procedure as patient is over 6 months removed from her coronary stent. Continue aspirin without interruption for endoscopy. Follow up with GI outpatient Hx of CAD s/p PTCA okay with cardio to hold clopidogrel for 5 days prior to procedure as patient is over 6 months removed from her coronary stent. Continue aspirin without interruption for endoscopy. 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 First thing in the morning and in the afternoon. Start spironolactone 25 mg daily. Pending Studies at Discharge: No Stand-Alone Forms: My [employer], Work/School Release, Smoking Cessation Medications and DC Order Prescriptions: New clindamycin HCl 150 mg Capsule 450 mg PO Q8H 5 Days Qty: 45 RF: 0 spironolactone 25 mg Tablet 25 mg PO QAM 30 Days Qty: 30 RF: 0 torsemide 20 mg tablet 20 mg PO BID17 30 Days Qty: 60 RF: 0 Continued levetiracetam [Keppra] 500 mg Tablet 500 mg PO BID RF: 0 escitalopram oxalate [Lexapro] 20 mg tablet 20 mg PO QAM RF: 0 metformin 1,000 mg Tablet 1,000 mg PO BID RF: 0 atorvastatin 80 mg Tablet 80 mg PO HS RF: 0 nitroglycerin [Nitrostat] 0.4 mg Tablet, Sublingual 0.4 mg sublingual UD PRN (Reason: Chest Pain) RF: 0 albuterol sulfate 90 mcg/actuation HFA aerosol inhaler 2 puff INHALATION Q6 PRN (Reason: Shortness Of Breath Or Wheezing) RF: 0 buspirone 15 mg tablet 15 mg PO BID RF: 0 medroxyprogesterone [Depo-Provera] 150 mg/mL Syringe 150 mg IM Q3M RF: 0 glipizide 10 mg tablet 10 mg PO DAILYBD RF: 0 clopidogrel 75 mg Tablet 75 mg PO QAM 30 Days Qty: 30 RF: 2 aspirin 81 mg Tablet,Delayed Release (Dr/Ec) 81 mg PO QAM 30 Days Qty: 30 RF: 2 lisinopril 5 mg Tablet 2.5 mg PO QAM RF: 0 metoprolol succinate 25 mg tablet extended release 24 hr 25 mg PO DAILY RF: 0 ferrous sulfate 325 mg (65 mg iron) Tablet,Delayed Release (Dr/Ec) 325 mg PO QDB Qty: 30 RF: 0 meclizine 25 mg tablet 25 mg PO TID PRN (Reason: Dizziness) RF: 0 buprenorphine-naloxone 8-2 mg tablet, sublingual 1 tab SUBLINGUAL DAILY RF: 0 Asmanex Twisthaler 220 mcg/ actuation (120) Aerosol Powdr Breath Activated 2 inh INHALATION DAILY RF: 0 Lantus Solostar U-100 Insulin 100 unit/mL (3 mL) insulin pen 10 unit SUBCUT HS RF: 0 Victoza 3-Zac 0.6 mg/0.1 mL (18 mg/3 mL) pen injector 1.2 mg SUBCUT DAILY RF: 0 gabapentin 400 mg capsule 400 mg PO TID RF: 0 potassium chloride [Klor-Con M20] 20 mEq tablet,ER particles/crystals 20 meq PO DAILY RF: 0 Discontinued doxycycline hyclate 100 mg capsule 100 mg PO BID 21 Days Qty: 42 RF: 0 furosemide [Lasix] 40 mg tablet See Rx Instructions .ROUTE .COMPLEX RF: 0 Discharge Orders: Discharge Order (Routine); Ordered 10/13/20 Ordered By: Debora Connolly/Other Patient Handouts: Managing Type 2 Diabetes, A1C Admission Data Admit Date/Time: 10/10/20 21:44 Attending Provider: Debora Moon Admit Provider: Charles Friedman Primary Care Provider: Irvin Iverson Other Providers: Charles Friedman ; Wesley Rutherford ; Donell Santana ; Radha Smith ; Pastora Mullins ; Janelle Otoole ; Shane Reina ; George Cavazos ; Malgorzata Means ; Gian Woo ; Meghann Stringer ; Sheela Baird ; Minnie Cadet ; Trang Loya ; Yolanda Krishnamurthy ; Cande Heard Other Interventions: Discharge Summary Assessment (RN) Last Done: 10/13/20 11:14
[2020-10-13] MEDS ORDERED: TORSEMIDE 10 MG TAB PO SCH (14:00)
[2020-10-13] MEDS ORDERED: VANCOMYCIN TROUGH ONE (21:30)
--- NOTE | 2020-10-20 13:38 | Coding Query ---
CODING QUERY To promote full compliance with coding requirements relating to patient care, provider participation is requested in all cases of horseshoer uncertainty. Please assist us with the question(s) below: Coding Question(s): Per documentation, "Bacteremia: Recent hx of gram positive bacteremia. Blood cx on admission no growth." Patient was given antibiotics throughout stay but patient also had cellulitis. Please clarify below: ( ) Patient with (possible) Bacteremia ( ) Bacteremia Ruled Out (x ) Other Please Explain: Possible contamination Thank you Jovon Rodriguez Principal Diagnosis: "that condition established after study, to be chiefly responsible for occasioning the admission of the patient to the hospital for care." Co-Existing Principal Diagnosis: "when two or more diagnoses equally meet the criteria for principal diagnosis as determined by the circumstances of admission, diagnostic work up, and/or therapy provided, and the Alphabetic Index, Tabular List, or another coding guideline does not provide sequencing direction, any one of the diagnoses may be sequenced first." "When the physician has documented what appears to be a current diagnosis in the body of the record, but has not included the diagnosis in the final diagnostic statement, the physician should be asked whether the diagnosis should be added." (Source Coding Clinic 2 QTR90. p3-4) [place]
== END 2020-10-13 12:00 | disposition home or self-care (01) | DRG 292 ==
LOC: ED 16:37 → SUATTDRO 21:44 → 2S 21:44

== ENCOUNTER 2020-11-16 13:06 | Inpatient (IN) ==
--- NOTE | 2020-11-16 14:47 | Emergency Department Note ---
History of Present Illness General Chief complaint: Shortness of Breath/Dyspnea Stated complaint: SOB, LOW O2 Time Seen by Provider: 11/16/20 14:22 Source: patient Mode of arrival: ambulatory Limitations: no limitations History of Present Illness Provider complaint: chest pain, shortness of breath Onset (ago): day(s) Location: chest Radiation: non-radiation Severity: moderate Maximum Pain Intensity: 9 Relieved By: + none Exacerbated By: + movement Associated symptoms: + cough, + fever/chills, + loss of appetite, + malaise, + nausea/vomiting and + shortness of breath This is a 40-year-old female presents emergency department with concern for chest pain and shortness of breath. Patient does have patient with longstanding history of both pulmonary and cardiac comorbidities. Patient states she did have an appointment today with Dr. Gonzales in the office however because she had active chest pain she decided to come here. Patient denies any recent illness or change in activity. Patient states symptoms are similar to prior episodes of congestive heart failure as well as prior episodes of pneumonia. Patient denies any known sick contact or concern for Covid exposure. Patient denies fevers or chills. Patient states she does have a chronic cough, no change in her sputum production. She denies nausea, vomiting, abdominal pain, or diarrhea. Patient denies any lower extremity swelling. Patient denies any recent change in medication. States he does use inhalers at home for COPD, does not wear home oxygen. Pt seen during a time of high acuity and national emergency pandemic while wearing PPE. Home Medications Medication Instructions Recorded Confirmed Type escitalopram oxalate 20 mg tablet 20 mg PO QAM 05/30/18 11/16/20 History (Lexapro) lisinopril 5 mg tablet 2.5 mg PO QAM 09/08/18 11/16/20 History metformin 1,000 mg tablet 1,000 mg PO BID 12/19/18 11/16/20 History atorvastatin 80 mg tablet 80 mg PO HS 12/28/18 11/16/20 History albuterol sulfate 90 mcg/actuation 2 puff INHALATION Q6 PRN 11/06/19 11/16/20 H istory aerosol inhaler buspirone 15 mg tablet 15 mg PO BID 11/06/19 11/16/20 History medroxyprogesterone 150 mg/mL 150 mg IM Q3M 11/06/19 11/16/20 History intramuscular syringe (Depo-Provera) nitroglycerin 0.4 mg sublingual 0.4 mg SUBLINGUAL UD PRN 11/06/19 11/16/20 History tablet (Nitrostat) glipizide 10 mg tablet 10 mg PO DAILYBD 02/22/20 11/16/20 History aspirin 81 mg tablet,delayed 81 mg PO QAM 30 Days #30 tab 02/24/20 11/16/20 Rx release clopidogrel 75 mg tablet 75 mg PO QAM 30 Days #30 tab 02/24/20 11/16/20 Rx metoprolol succinate 25 mg 25 mg PO DAILY 05/23/20 11/16/20 History tablet,extended release 24 hr ferrous sulfate 325 mg (65 mg 325 mg PO QDB #30 tab 05/25/20 11/16/20 Rx iron) tablet,delayed release potassium chloride 20 mEq 20 meq PO DAILY 08/09/20 11/16/20 History tablet,extended release(part/cryst) (Klor-Con M) insulin glargine 100 unit/mL (3 10 unit SUBCUT HS 09/18/20 11/16/20 History mL) subcutaneous pen (Lantus Solostar U-100 Insulin) meclizine 25 mg tablet 25 mg PO TID PRN 09/18/20 11/16/20 History mometasone (Asmanex Twisthaler) 2 inh INHALATION DAILY 09/18/20 11/16/20 History buprenorphine 8 mg-naloxone 2 mg 0.5 tab SUBLINGUAL TID 11/16/20 11/16/20 History sublingual tablet gabapentin 600 mg tablet 600 mg PO TID 11/16/20 11/16/20 History levetiracetam 500 mg tablet 500 mg PO BID 11/16/20 11/16/20 History spironolactone 25 mg tablet 25 mg PO DAILY 11/16/20 11/16/20 History torsemide 20 mg tablet 20 mg PO BID 11/16/20 11/16/20 History Allergies Allergy/AdvReac Type Severity Reaction Status Date / Time lidocaine Allergy Intermediate HIVES Verified 11/16/20 17:56 procaine Allergy Intermediate HIVES Verified 11/16/20 17:56 Penicillins Allergy Mild HAD NO Verified 11/16/20 17:56 PROBLEM WITH ZOSYN strawberry Allergy Mild HIVES Verified 11/16/20 17:56 cephalexin AdvReac Intermediate YEAST Verified 11/16/20 17:56 INFECTIONS tramadol AdvReac Intermediate SEIZURES Verified 11/16/20 17:56 azithromycin AdvReac Mild STOMACH Verified 11/16/20 17:56 PAIN Past Med/Surg History Medical History Acute electrocardiogram changes Aortic regurgitation Aortic stenosis Asthma Atypical chest pain Cannabis abuse Cellulitis of both lower extremities Chronic diastolic CHF (congestive heart failure) Coronary artery disease Depression Diabetes mellitus, type 2 Encounter for smoking cessation counseling GERD (gastroesophageal reflux disease) Gram negative sepsis Hepatitis C "Antibiotic screen positive, quantitative RNA positive 08/30/17" Hepatosplenomegaly History of drug abuse History of DVT (deep vein thrombosis) History of renal calculi Hypertension Hypocalcemia Opiate abuse, continuous Overdose Seizure disorder Surgical History History of cardiac cath 2017- 1 ROJAS to ramus, 2 ROJAS to L circumflex. 40-50% plaque to LAD 2018- distal disease (80%) within PDA History of carpal tunnel surgery History of lumbar spinal fusion Hx of tonsillectomy Status post cholecystectomy Family History Other Diabetes Heart disease Hypertension Kidney stones Seizures Social History Smoking Status: Current every day smoker Tobacco Type: Cigarettes Cigarettes Per Day: 10; Number of Years Since Quit: 31; Second Hand Exposure: Yes; Hx Alcohol Use: No Hx Substance Use: Yes (3 years drug free) Non-Prescribed Medications: Heroin, IV Drugs and Methamphetamines Last Used Substance: Unknown Last Used Substance Other:: 1.5 YEARS AGO Substance Use Type Other:: 1.5 years ago Preferred Language: Azeri Communication Ability: Effective Visual Impairment: No Limitations Hearing Ability: Normal Infrastructure Architect Required: No Beliefs That Will Affect Care: None marital status: Single Current Living Situation: Significant Other Current Living Situation Comment: LIVES WITH ROOMMATES Feels Safe at Home: Yes Assistive Devices: None Review of Systems A total of 10 systems reviewed and were otherwise negative All systems reviewed & are unremarkable except as noted in HPI & below Physical Exam Vital Signs Vital Signs - 24 hr 11/16/20 13:22 11/16/20 15:57 11/16/20 15:59 Temperature 37.9 C H Temperature Source Oral Pulse Rate 116 H 114 H Pulse Rate from SpO2 Sensor Respiratory Rate 20 35 H Respiratory Effort / Characteristics Respiratory Depth Respiratory Pattern Blood Pressure 118/59 L Blood Pressure Mean 78 Pulse Oximetry 97 95 Oxygen Delivery Method Room Air Fraction of Inspired Oxygen Sepsis Recent Fever Within 48 Hours Yes Sepsis New/Unexplained Change in Mental Status N/A Sepsis Action Taken by Nursing No Action Required 11/16/20 16:00 11/16/20 16:30 11/16/20 17:01 Temperature Temperature Source Pulse Rate 114 H 113 H 116 H Pulse Rate from SpO2 Sensor 113 H 115 H Respiratory Rate 36 H 42 H 41 H Respiratory Effort / Characteristics Respiratory Depth Respiratory Pattern Blood Pressure 120/52 L Blood Pressure Mean 74 Pulse Oximetry 94 93 Oxygen Delivery Method Fraction of Inspired Oxygen Sepsis Recent Fever Within 48 Hours Sepsis New/Unexplained Change in Mental Status Sepsis Action Taken by Nursing 11/16/20 17:30 11/16/20 17:45 11/16/20 18:00 Temperature Temperature Source Pulse Rate 130 H 126 H 118 H Pulse Rate from SpO2 Sensor 130 H 125 H 119 H Respiratory Rate 28 H 30 H 32 H Respiratory Effort / Characteristics Spontaneous Respiratory Depth Normal Respiratory Pattern Tachypnea Blood Pressure 142/84 H 130/63 114/68 Blood Pressure Mean 103 85 83 Pulse Oximetry 95 97 97 Oxygen Delivery Method Fraction of Inspired Oxygen 21 Sepsis Recent Fever Within 48 Hours Sepsis New/Unexplained Change in Mental Status Sepsis Action Taken by Nursing 11/16/20 18:15 11/16/20 18:30 11/16/20 19:20 Temperature Temperature Source Pulse Rate 113 H 106 H 88 Pulse Rate from SpO2 Sensor 112 H 106 H 87 Respiratory Rate 26 H 30 H 28 H Respiratory Effort / Characteristics Respiratory Depth Respiratory Pattern Blood Pressure 107/54 L 113/63 120/71 Blood Pressure Mean 71 79 87 Pulse Oximetry 99 97 96 Oxygen Delivery Method Fraction of Inspired Oxygen Sepsis Recent Fever Within 48 Hours Sepsis New/Unexplained Change in Mental Status Sepsis Action Taken by Nursing 11/16/20 19:41 Temperature Temperature Source Pulse Rate 88 Pulse Rate from SpO2 Sensor Respiratory Rate 30 H Respiratory Effort / Characteristics Non-Labored Spontaneous Respiratory Depth Deep Respiratory Pattern Tachypnea Blood Pressure Blood Pressure Mean Pulse Oximetry 97 Oxygen Delivery Method Fraction of Inspired Oxygen 21 Sepsis Recent Fever Within 48 Hours Sepsis New/Unexplained Change in Mental Status Sepsis Action Taken by Nursing GENERAL: alert, unwell appearing, well nourished, mild distress, non-toxic, BMI>30 EYE EXAM: normal conjunctiva, PERRL and EOM's grossly intact OROPHARYNX: no exudate, no erythema, lips, buccal mucosa, and tongue normal and mucous membranes are dry, poor dentition NECK: supple, no nuchal rigidity, no adenopathy, non-tender LUNGS: Decreased b/l to auscultation. Normal chest wall mechanics, no w/r/r, no retractions, mild tachypnea, no increased work of breathing. HEART: no murmurs, S1 normal and S2 normal ABDOMEN: abdomen soft, non-tender, normo-active bowel sounds, no masses, no rebound or guarding. BACK: Back is symmetrical on inspection and there is no deformity, no midline tenderness, no CVA tenderness. SKIN: no rashes and no bruising UPPER EXTREMITIES: upper extremities are grossly normal. FROM, nml pulses b/l. LOWER EXTREMITIES: No pitting edema b/l. FROM, nml pulses b/l. NEURO EXAM: Normal sensorium, cranial nerves II-XII grossly intact, normal speech, no gross weakness of arms, no gross weakness of legs. Gross sensation intact. Course Course 1620: Patient now with a fever. Additional labs and broad-spectrum antibiotics added. 1645: Call placed to respiratory to add high flow nasal cannula as patient with tachypnea despite not being hypoxic. Given concern for patient's prior pulmonary and cardiac etiology, will attempt to ease the patient's work of breathing. 1715: Per RT there is not an appropriate set up for high flow nasal cannula in the patient's room. Will discuss BiPAP with the patient as she has had difficulty tolerating this in the past. Administered Medications Acetaminophen (Acetaminophen 325 Mg Tab) 650 mg PO Q4H PRN PRN Reason: Fever Stop: 12/17/20 03:34 Last Admin: 11/18/20 12:17 Dose: 650 mg Documented by: [id number] Admin: 11/18/20 02:48 Dose: 650 mg Documented by: [id number] Admin: 11/17/20 04:16 Dose: 650 mg Documented by: [id number] Aspirin (Aspirin 81 Mg Ectab) [facility] [place]: 12/17/20 16:03 Last Admin: 11/18/20 08:33 Dose: 81 mg Documented by: [id number] Admin: 11/17/20 16:57 Dose: 81 mg Documented by: [id number] Atorvastatin Calcium (Atorvastatin 40 Mg Tab) 80 mg PO HS [facility] Stop: 12/17/20 20:59 Last Admin: 11/18/20 20:45 Dose: 80 mg Documented by: [id number] Admin: 11/17/20 20:59 Dose: 80 mg Documented by: [id number] Buprenorphine/Naloxone (Buprenorphine/Naloxone 8/2 Mg Tab) 0.5 tab SL TID [facility] Stop: 12/18/20 13:59 Last Admin: 11/18/20 20:46 Dose: 0.5 tab Documented by: [id number] Admin: 11/18/20 14:53 Dose: 0.5 tab Documented by: [id number] Clopidogrel Bisulfate (Clopidogrel Bisulfate 75 Mg Tab) 75 mg PO QAM [facility] Stop: 12/17/20 16:03 Last Admin: 11/18/20 08:34 Dose: 75 mg Documented by: [id number] Admin: 11/17/20 16:57 Dose: 75 mg Documented by: [id number] Enoxaparin Sodium (Enoxaparin Inj 40 Mg/0.4 Ml Syr) 40 mg SQ Q24H [facility] Stop: 12/16/20 21:59 Last Admin: 11/18/20 22:15 Dose: 40 mg Documented by: [id number] Admin: 11/17/20 20:58 Dose: 40 mg Documented by: [id number] Admin: 11/16/20 22:55 Dose: 40 mg Documented by: [id number] Escitalopram Oxalate (Escitalopram Oxalate 20 Mg Tab) 20 mg PO QAM [facility] Stop: 12/17/20 16:03 Last Admin: 11/18/20 08:34 Dose: 20 mg Documented by: [id number] Admin: 11/17/20 16:57 Dose: 20 mg Documented by: [id number] Gabapentin (Gabapentin 400 Mg Cap) 400 mg PO TID [facility] Stop: 12/18/20 20:59 Last Admin: 11/18/20 20:45 Dose: 400 mg Documented by: [id number] Cefepime HCl 2,000 mg/ Syringe 20 mls @ 5 mls/min IV Q8H [facility] Stop: 11/27/20 00:59 Last Admin: 11/18/20 16:44 Dose: 5 mls/min Documented by: [id number] Admin: 11/18/20 09:10 Dose: 5 mls/min Documented by: [id number] Admin: 11/18/20 00:54 Dose: 5 mls/min Documented by: [id number] Admin: 11/17/20 16:45 Dose: 5 mls/min Documented by: [id number] Admin: 11/17/20 08:30 Dose: 5 mls/min Documented by: [id number] Admin: 11/17/20 02:01 Dose: 5 mls/min Documented by: [id number] Doxycycline Hyclate 100 mg/ (Dextrose) 110 mls @ 50 mls/hr IV Q12H [facility]; Protocol Stop: 11/25/20 16:44 Last Infusion: 11/18/20 20:38 Dose: 0 mls/hr Documented by: [id number] Admin: 11/18/20 17:51 Dose: 50 mls/hr Documented by: [id number] Insulin Aspart (Insulin Aspart 100 Units/Ml 3 Ml Pen) 0 units SC ACHS [facility] Stop: 12/16/20 21:45 Last Admin: 11/18/20 21:02 Dose: 1 units Documented by: [id number] Cosigned by: [id number] Admin: 11/18/20 16:42 Dose: 9 units Documented by: [id number] Cosigned by: [id number] Admin: 11/18/20 12:11 Dose: 4 units Documented by: [id number] Cosigned by: [id number] Admin: 11/18/20 09:10 Dose: 3 units Documented by: [id number] Cosigned by: [id number] Admin: 11/17/20 20:39 Dose: Not Given Documented by: [id number] Cosigned by: [id number] Admin: 11/17/20 16:43 Dose: 2 units Documented by: [id number] Cosigned by: [id number] Admin: 11/17/20 11:37 Dose: 5 units Documented by: [id number] Cosigned by: [id number] Admin: 11/17/20 07:38 Dose: Not Given Documented by: [id number] Admin: 11/16/20 22:37 Dose: 2 units Documented by: [id number] Cosigned by: [id number] Lactobacillus Acidoph/Casei/Rhamnos (Advanced Probiotic 1250 Mg Capsule) 2 cap PO DAILY [facility] Stop: 12/18/20 12:14 Last Admin: 11/18/20 14:52 Dose: 2 cap Documented by: [id number] Levetiracetam (Levetiracetam 500 Mg Tab) 500 mg PO BID [facility] Stop: 12/17/20 20:59 Last Admin: 11/18/20 20:45 Dose: 500 mg Documented by: [id number] Admin: 11/18/20 08:35 Dose: 500 mg Documented by: [id number] Admin: 11/17/20 20:59 Dose: 500 mg Documented by: [id number] Lidocaine (Lidocaine 5% 1 Patch) 1 patch TD QAM [facility] Stop: 12/17/20 14:14 Last Admin: 11/18/20 08:35 Dose: 1 patch Documented by: [id number] Admin: 11/17/20 14:41 Dose: 1 patch Documented by: [id number] Lisinopril (Lisinopril 2.5 Mg Tab) 2.5 mg PO QAM [facility] Stop: 12/18/20 08:59 Last Admin: 11/18/20 08:36 Dose: 2.5 mg Documented by: [id number] Metoprolol Succinate (Metoprolol Succ 25mg Ext Rel Tab) 25 mg PO DAILY [facility] Stop: 12/17/20 16:03 Last Admin: 11/18/20 08:36 Dose: 25 mg Documented by: [id number] Admin: 11/17/20 16:56 Dose: 25 mg Documented by: [id number] Miscellaneous (Remove Lidoderm Patch) 1 ea N/A DAILY@2100 [facility] Stop: 12/17/20 20:59 Last Admin: 11/18/20 20:46 Dose: 1 ea Documented by: [id number] Admin: 11/17/20 20:59 Dose: 1 ea Documented by: [id number] Discontinued Medications Gabapentin (Gabapentin 400 Mg Cap) 400 mg PO BID [facility] Stop: 12/17/20 20:59 Last Admin: 11/18/20 08:35 Dose: 400 mg Documented by: [id number] Admin: 11/17/20 20:59 Dose: 400 mg Documented by: [id number] Gabapentin (Gabapentin 100 Mg Cap) 200 mg PO ONE ONE Stop: 11/17/20 14:23 Last Admin: 11/17/20 14:41 Dose: 200 mg Documented by: [id number] Gabapentin (Gabapentin 100 Mg Cap) 200 mg PO ONE ONE Stop: 11/18/20 16:45 Last Admin: 11/18/20 17:51 Dose: 200 mg Documented by: [id number] Acetaminophen (Ofirmev) 1,000 mg in 100 mls @ 400 mls/hr IV NOW STA Stop: 11/16/20 16:38 Last Infusion: 11/16/20 17:40 Dose: 0 mls/hr Documented by: [id number] Admin: 11/16/20 17:25 Dose: 400 mls/hr Documented by: [id number] Vancomycin HCl 2,000 mg/ (Sodium Chloride) 540 mls @ 200 mls/hr IV NOW ONE Stop: 11/16/20 19:13 Last Infusion: 11/16/20 21:15 Dose: 0 mls/hr Documented by: [id number] Admin: 11/16/20 18:15 Dose: 200 mls/hr Documented by: [id number] Cefepime HCl (Maxipime) 2,000 mg in 20 mls @ 5 mls/min IV NOW STA; Protocol Stop: 11/16/20 16:47 Last Admin: 11/16/20 17:27 Dose: 5 mls/min Documented by: [id number] Sodium Chloride (Nss 1000ml) 1,000 mls @ 125 mls/hr IV .Q8H [facility] Stop: 12/16/20 16:59 Last Infusion: 11/16/20 22:19 Dose: 0 mls/hr Documented by: [id number] Admin: 11/16/20 17:27 Dose: 125 mls/hr Documented by: [id number] Magnesium Sulfate/Dextrose (Magnesium Sulfate / D5w) 1 gm in 100 mls @ 100 mls/hr IV Q1H [facility] Stop: 11/16/20 19:28 Last Infusion: 11/16/20 20:19 Dose: 0 mls/hr Documented by: [id number] Admin: 11/16/20 19:11 Dose: 100 mls/hr Documented by: [id number] Infusion: 11/16/20 19:11 Dose: 100 mls/hr Documented by: [id number] Admin: 11/16/20 18:15 Dose: 100 mls/hr Documented by: [id number] Lactated Ringer's (Lr) 500 mls @ 999 mls/hr IV .Q31M ONE Stop: 11/16/20 19:17 Last Infusion: 11/16/20 19:45 Dose: 0 mls/hr Documented by: [id number] Admin: 11/16/20 19:12 Dose: 999 mls/hr Documented by: [id number] Lactated Ringer's (Lr) 1,000 mls @ 125 mls/hr IV .Q8H [facility] Stop: 11/17/20 13:45 Last Infusion: 11/17/20 14:38 Dose: 0 mls/hr Documented by: [id number] Admin: 11/17/20 06:38 Dose: 125 mls/hr Documented by: [id number] Infusion: 11/17/20 06:38 Dose: 125 mls/hr Documented by: [id number] Admin: 11/16/20 22:06 Dose: 125 mls/hr Documented by: [id number] Vancomycin HCl 1,250 mg/ (Sodium Chloride) 275 mls @ 200 mls/hr IV Q12H [facility] Stop: 11/19/20 02:59 Last Infusion: 11/17/20 04:36 Dose: 0 mls/hr Documented by: [id number] Admin: 11/17/20 03:13 Dose: 200 mls/hr Documented by: [id number] Potassium Phosphate 21 mmol/ (Sodium Chloride) 507 mls @ 88 mls/hr IV ONE ONE Stop: 11/17/20 16:15 Last Infusion: 11/17/20 17:57 Dose: 0 mls/hr Documented by: [id number] Admin: 11/17/20 11:36 Dose: 88 mls/hr Documented by: [id number] Miscellaneous Information (Consult Pharmacy) 1 ea N/A NOW STA Stop: 11/16/20 18:53 Last Admin: 11/16/20 19:27 Dose: 1 ea Documented by: [id number] Critical Care Time Critical Care Time: Yes Total Critical Care Time: 48 Critical care of 48 min performed to assess and manage high likelihood of life-threatening dyspnea, involving labs and imaging performed with assessment to evaluate dyspnea diagnosis with frequent reassessment. This time includes bedside time, treatment discussions with patient/family/consultants, documentation time and excludes procedure time. Medical Decision Making Differential Diagnosis Differential diagnoses includes but is not limited to acute coronary syndrome, myocardial infarction, pericarditis, pulmonary embolus, aortic dissection, pneumonia, pneumothorax, musculoskeletal, shingles, esophageal. Medical Records Attestation: I reviewed the patient's medical records. Home Medications Current Medication List: was personally reviewed by me Laboratory Data Attestation: I reviewed the patient's lab results. Result diagrams: 11/18/20 08:05 11/18/20 08:05 Lab Results 11/16/20 11/16/20 11/16/20 Range/Units 16:10 16:10 16:10 WBC 34.10 H* (4.8-10.8) K/uL RBC 3.68 L (4.2-5.4) M/uL Hgb 9.6 L (12.0-16.0) g/dL Hct 29.3 L (37-47) % MCV 79.6 L (80-100) fL MCH 26.1 (25-34) pg MCHC 32.8 (32-36) g/dL RDW Std Deviation 61.5 H (36.4-46.3) fL RDW Coeff of Hannah 20.9 H (11.5-14.5) % Plt Count 415 H (130-400) K/uL MPV 10.3 (7.4-10.4) fL Immature Gran % (Auto) 0.7 % Neut % (Auto) 85.6 % Lymph % (Auto) 7.4 % [place] % (Auto) 6.1 % Eos % (Auto) 0.1 % Baso % (Auto) 0.1 % Neut # (Auto) 29.18 H (1.4-6.5) K/uL Lymph # (Auto) 2.52 (1.2-3.4) K/uL [place] # (Auto) 2.09 H (0.11-0.59) K/uL Eos # (Auto) 0.04 (0-0.5) K/uL Baso # (Auto) 0.02 (0-0.2) K/uL Immature Gran # (Auto) 0.25 H (0.00-0.02) K/uL Hypochromasia Present Anisocytosis Present Sodium 133 L (136-145) mmol/L Potassium 4.0 (3.5-5.1) mmol/L Chloride 104 (98-107) mmol/L Carbon Dioxide 19 L (21-32) mmol/L Anion Gap 10.0 (3-11) BUN 13 (7-18) mg/dl Creatinine 1.02 (0.6-1.2) mg/dl Est Cr Clr Drug Dosing Not Reportable Est GFR ( Amer) 78.6 ml/min Est GFR (Non-Af Amer) 67.8 ml/min BUN/Creatinine Ratio 13.1 (10-20) Glucose 120 H (70-99) mg/dl Calcium 8.7 (8.5-10.1) mg/dl Magnesium 1.5 L (1.8-2.4) mg/dl Total Bilirubin 0.6 (0.2-1) mg/dl AST 39 H (15-37) U/L ALT 41 (12-78) U/L Alkaline Phosphatase 158 H (45-117) U/L Troponin I < 0.015 (0-0.045) ng/ml NT-Pro-B Natriuret Pep 919 H (0-450) pg/ml Total Protein 8.0 (6.4-8.2) gm/dl Albumin 2.4 L (3.4-5.0) gm/dl Globulin 5.6 H (2.5-4.0) gm/dl Albumin/Globulin Ratio 0.4 L (0.9-2) Procalcitonin (0-0.5) ng/ml TSH 0.516 (0.300-4.500) uIu/ml COVID-19 Eval Order Covid19 at [facility] SARS-CoV-2 (PCR) (Negative) 11/16/20 11/16/20 Range/Units 16:10 17:10 WBC (4.8-10.8) K/uL RBC (4.2-5.4) M/uL Hgb (12.0-16.0) g/dL Hct (37-47) % MCV (80-100) fL MCH (25-34) pg MCHC (32-36) g/dL RDW Std Deviation (36.4-46.3) fL RDW Coeff of Hannah (11.5-14.5) % Plt Count (130-400) K/uL MPV (7.4-10.4) fL Immature Gran % (Auto) % Neut % (Auto) % Lymph % (Auto) % [place] % (Auto) % Eos % (Auto) % Baso % (Auto) % Neut # (Auto) (1.4-6.5) K/uL Lymph # (Auto) (1.2-3.4) K/uL [place] # (Auto) (0.11-0.59) K/uL Eos # (Auto) (0-0.5) K/uL Baso # (Auto) (0-0.2) K/uL Immature Gran # (Auto) (0.00-0.02) K/uL Hypochromasia Anisocytosis Sodium (136-145) mmol/L Potassium (3.5-5.1) mmol/L Chloride (98-107) mmol/L Carbon Dioxide (21-32) mmol/L Anion Gap (3-11) BUN (7-18) mg/dl Creatinine (0.6-1.2) mg/dl Est Cr Clr Drug Dosing Est GFR ( Amer) ml/min Est GFR (Non-Af Amer) ml/min BUN/Creatinine Ratio (10-20) Glucose (70-99) mg/dl Calcium (8.5-10.1) mg/dl Magnesium (1.8-2.4) mg/dl Total Bilirubin (0.2-1) mg/dl AST (15-37) U/L ALT (12-78) U/L Alkaline Phosphatase (45-117) U/L Troponin I (0-0.045) ng/ml NT-Pro-B Natriuret Pep (0-450) pg/ml Total Protein (6.4-8.2) gm/dl Albumin (3.4-5.0) gm/dl Globulin (2.5-4.0) gm/dl Albumin/Globulin Ratio (0.9-2) Procalcitonin 0.90 H (0-0.5) ng/ml TSH (0.300-4.500) uIu/ml COVID-19 Eval Order SARS-CoV-2 (PCR) NEGATIVE (Negative) Imaging Data Radiologist's Impression: Chest X-Ray 11/16/20 14:44 XR chest 1V portable CLINICAL HISTORY: Chest pain and shortness of breath COMPARISON STUDY: 10/10/2020 FINDINGS: The heart is the upper limits of normal in size. Subtle lower lung zone airspace opacities are suspected with the markings accentuated by overlying breast tissue.[There are no significant pleural effusions IMPRESSION: Suspected subtle bilateral lower lung zone airspace opacities left greater than right. This could be secondary to infectious/inflammatory process or mild pulmonary vascular congestion. Clinical and radiographic follow-up recommended ACT 112: Negative or not required by law. Electronically signed by: Jayro Duke M.D. 11/16/2020 4:41 PM ECG Data Attestation: I personally reviewed and interpreted this ECG as follows: Indication: + chest pain Rate (beats per minute): 110 Rhythm: + sinus tachycardia ECG Intervals/blocks: + Normal QRS and + Normal QT ECG Fleming: + Normal ECG ST segments: + Normal ST segments MDM Narrative This is an ill-appearing 40-year-old female who presents due to increased dyspnea which she thought was related to evolving congestive heart failure which she has had previously. Patient with significant past medical history of both cardiac and pulmonary etiology of her breathing. Patient uncomfortable appearing here, however has been resistant to be cooperative with staff. Coleen ent with multiple prior admissions. Labs drawn and sent, chest x-ray performed. While awaiting results of this it was noted by staff the patient then developed a fever. Additional blood work was added, as were antibiotics. Patient's white blood cell count was significantly elevated which has happened previously also. Patient's H&H appear stable for her anemia compared to prior. Due to patient's tachypnea and increased work of breathing, I contacted RT for additional airway intervention. Initial plan was to try high flow nasal cannula however the set up was not available in this room and there were no other available rooms to move the patient into. Patient then placed on BiPAP. Patie nt was never hypoxic, however the additional pressure support did aid in the patient's respirations and work of breathing which did seem to ease. Patient was otherwise mentating normally throughout. I do not suspect hypercapnia. After chest x-ray was performed, I did appear the patient likely had underlying pneumonia which would likely explain her symptoms. Patient's exam not otherwise consistent with fulminant congestive heart failure. Patient's troponin and BNP negative. Case discussed with hospitalist for additional evaluation and management. Patient remained hemodynamically stable in the emergency room, work of breathing improved with additional airway support, and fever treated with Tylenol. An order was placed for continuous cardiac monitoring. The monitor shows a rate of _112_ with _sinus tachycardia__ rhythm. Impression & Plan Acute dyspnea, Pneumonia, Anemia Discharge Plan Visit Data Chief Complaint: Shortness of Breath/Dyspnea Stated Complaint: SOB, LOW O2 ED Provider: Laura Flannery Discharge Problem: Acute dyspnea, Pneumonia, Anemia Patient Disposition: Admitted As Inpatient Discharge Instructions Interventions: ED Discharge Assessment Last Done: 11/16/20 20:38 Discharge Problem: Pneumonia Qualifiers: Pneumonia type: due to unspecified organism Laterality: bilateral Lung location: lower lobe of lung Qualified Code(s): J18.9 - Pneumonia, unspecified organism Anemia Qualifiers: Anemia type: unspecified type Qualified Code(s): D64.9 - Anemia, unspecified
[2020-11-16] MEDS ORDERED: ACETAMINOPHEN 1,000 MG/100 ML VIAL IV STA (16:24)
[2020-11-16 16:28] LABS: Hematocrit (blood only) 29.3 % (37-47); Hemoglobin 9.6 g/dL (12.0-16.0); Mean Corpuscular Hemoglobin 26.1 pg (25-34); Mean Corpuscular Hgb Conc 32.8 g/dL (32-36); Mean Corpuscular Volume 79.6 fL (80-100); Mean Platelet Volume 10.3 fL (7.4-10.4); Platelet Count 415 K/uL (130-400); RDW Coefficient of Variation 20.9 % (11.5-14.5); RDW Standard Deviation 61.5 fL (36.4-46.3); Red Blood Count 3.68 M/uL (4.2-5.4)
[2020-11-16 16:39] LABS: Alanine Aminotransferase 41 U/L (12-78); Albumin Level 2.4 gm/dl (3.4-5.0); Aspartate Aminotransferase 39 U/L (15-37); BUN Creatinine Ratio 13.1 (10-20); Blood Urea Nitrogen 13 mg/dl (7-18); Calcium 8.7 mg/dl (8.5-10.1); Carbon Dioxide 19 mmol/L (21-32); Chloride 104 mmol/L (98-107); Est GFR (African American) 78.6 ml/min; Est GFR (Non-African American) 67.8 ml/min; Glucose 120 mg/dl (70-99); Magnesium 1.5 mg/dl (1.8-2.4); Sodium 133 mmol/L (136-145)
--- NOTE | 2020-11-16 16:43 | XRay Report ---
XR chest 1V portable CLINICAL HISTORY: Chest pain and shortness of breath COMPARISON STUDY: 10/10/2020 FINDINGS: The heart is the upper limits of normal in size. Subtle lower lung zone airspace opacities are suspected with the markings accentuated by overlying breast tissue.[There are no significant pleu ral effusions IMPRESSION: Suspected subtle bilateral lower lung zone airspace opacities left greater than right. Th is could be secondary to infectious/inflammatory process or mild pulmonary vascular congestion. Clini jose and radiographic follow-up recommended ACT 112: Negative or not required by law. Electronically signed by: Jayro Duke M.D. 11/16/2020 4:41 PM
[2020-11-16] MEDS ORDERED: VANCOMYCIN CONSULT ACTIVE PRN ×2 (16:44)
[2020-11-16] MEDS ORDERED: VANCOMYCIN HCL 2,000 MG in SODIUM CHLORIDE 0.9% 500 ML IV ONE (16:44)
[2020-11-16] MEDS ORDERED: CEFEPIME 2,000 MG/20 ML VIAL IV STA (16:44)
[2020-11-16 16:51] LABS: Albumin Globulin Ratio 0.4 (0.9-2); Alkaline Phosphatase 158 U/L (45-117); Bilirubin,Total 0.6 mg/dl (0.2-1); Globulin 5.6 gm/dl (2.5-4.0); NT Pro B Type Natriuretic Pept 919 pg/ml (0-450); Thyroid Stimulating Hormone 0.516 uIu/ml (0.300-4.500); Troponin I < 0.015 ng/ml (0-0.045)
[2020-11-16 16:55] LABS: Anisocytosis Present; Basophils # (auto) 0.02 K/uL (0-0.2); Basophils % (auto) 0.1 %; Eosinophils # (auto) 0.04 K/uL (0-0.5); Eosinophils % (auto) 0.1 %; Hypochromasia Present; Immature Granulocytes # (auto) 0.25 K/uL (0.00-0.02); Immature Granulocytes % (auto) 0.7 %; Lymphocytes # (auto) 2.52 K/uL (1.2-3.4); Lymphocytes % (auto) 7.4 %; Monocytes # (auto) 2.09 K/uL (0.11-0.59); Monocytes % (auto) 6.1 %; Neutrophils # (auto) 29.18 K/uL (1.4-6.5); Neutrophils % (auto) 85.6 %
[2020-11-16] MEDS ORDERED: SODIUM CHLORIDE 0.9% 1000ML 1,000 ML IV SCH (17:00)
[2020-11-16] MEDS: MAGNESIUM SULFATE / D5W 1 GM/100 ML BAG IV SCH ×2 (18:15→19:11)
[2020-11-16] MEDS ORDERED: LACTATED RINGER'S 500 ML IV ONE (18:47)
[2020-11-16] MEDS ORDERED: CONSULT PHARMACY STA (18:52)
[2020-11-16 19:09] LABS: Base Excess ABG -5.8 mEq/L (-9-1.8); HCO3 ABG 17 mmol/L (19-24); Oxygen Saturation ABG 99.2 % (90-95); PCO2 ABG 26 mmHg (35-46); PO2 ABG 155 mmHg (80-95); pH ABG 7.44 (7.35-7.45)
[2020-11-16 19:11] LABS: Allen Test Pos (Pos)
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
[2020-11-16 19:58] LABS: Amphetamines+Metham, Urine Neg (Neg); Barbiturates, Urine Neg (Neg); Benzodiazepine, Urine Neg (Neg); Cocaine, Urine Neg (Neg); MDMA (Ecstacy), Urine Neg (Neg); Methadone, Urine Neg (Neg); Opiate, Urine Neg (Neg); Phencyclidine, Urine Neg (Neg)
[2020-11-16 21:14] LABS: BUN Creatinine Ratio 15.5 (10-20); Calcium 8.3 mg/dl (8.5-10.1); Creatinine Clr Calc Pharmacy 86.3 ml/min; Est GFR (African American) 91.4 ml/min; Est GFR (Non-African American) 78.9 ml/min; Magnesium 2.3 mg/dl (1.8-2.4); Potassium 3.7 mmol/L (3.5-5.1)
[2020-11-16 21:15] LABS: Beta-Hydroxybutyrate 3.76 mg/dl (0.2-2.81)
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
[2020-11-16] MEDS ORDERED: GLUCAGON FOR INJ 1 MG VIAL SQ PRN (21:46)
[2020-11-16] MEDS ORDERED: GLUCOSE 10 TABS/TUBE PO PRN (21:46)
[2020-11-16] MEDS ORDERED: DEXTROSE 50% 50 ML SYRINGE IV PRN (21:46)
[2020-11-16] MEDS ORDERED: CARBOHYDRATES FOR HYPOGLYCEMIA PO PRN (21:46)
[2020-11-16] MEDS ORDERED: ICU PROTOCOL FOR HYPERGLYCEMIA PRN (21:46)
[2020-11-16] MEDS ORDERED: GLUCOSE 40% GEL 15 GM TUBE PO PRN (21:46)
[2020-11-16] MEDS ORDERED: ALBUT/IPRATROP 3MG/0.5MG NEB 3 ML VIAL NEB PRN (21:46)
--- NOTE | 2020-11-16 21:55 | Pharmacy Report ---
Pharmacy Abx Dose Short Note - Date of Service November 16, 2020 - Assessment & Plan Assessment 40 year old F receiving vancomycin/cefepime for treatment of acute respiratory failure/sepsis. WBC elevated, procalcitonin 0.9, Tmax 37.9. Recent hospitalization in August/September for respiratory failure requiring ventilation. Possible coag negative staph bacteremia during that admission. Patient has extensive past medical history. Blood cultures pending. Plan Vancomycin * Loading dose 2000 mg x 1 * Maintenance 1250 mg (15 mg/kg) q12H * Goal trough level 15-20 mcg/mL * Trough currently not ordered as currently entered as empiric, will order if medication continued. Pharmacy will continue to follow and will adjust dose/frequency as necessary. Thank you.
[2020-11-16] MEDS ORDERED: CEFEPIME CONSULT ACTIVE PRN (21:56)
[2020-11-16] MEDS: LACTATED RINGER'S 1,000 ML IV SCH (22:06)
[2020-11-16] MEDS: INSULIN ASPART 100 UNITS/ML 3 ML PEN SC SCH (22:37)
[2020-11-16] MEDS: ENOXAPARIN INJ 40 MG/0.4 ML SYR SQ SCH (22:55)
[2020-11-17] MEDS: CEFEPIME 2,000 MG in SYRINGE 0 ML IV SCH ×3 (02:01→16:45)
[2020-11-17] MEDS ORDERED: VANCOMYCIN HCL 1,250 MG in SODIUM CHLORIDE 0.9% 250 ML IV SCH (03:00)
[2020-11-17] MEDS: ACETAMINOPHEN 325 MG TAB PO PRN (04:16)
[2020-11-17 05:22] LABS: Hematocrit (blood only) 26.3 % (37-47); Hemoglobin 8.4 g/dL (12.0-16.0); Mean Corpuscular Hemoglobin 25.5 pg (25-34); Mean Corpuscular Hgb Conc 31.9 g/dL (32-36); Mean Corpuscular Volume 79.7 fL (80-100); Mean Platelet Volume 10.4 fL (7.4-10.4); Platelet Count 388 K/uL (130-400); RDW Coefficient of Variation 20.8 % (11.5-14.5); RDW Standard Deviation 61.8 fL (36.4-46.3); White Blood Count 26.99 K/uL (4.8-10.8)
[2020-11-17 05:50] LABS: BUN Creatinine Ratio 19.3 (10-20); Calcium 8.6 mg/dl (8.5-10.1); Est GFR (African American) 124.4 ml/min; Est GFR (Non-African American) 107.4 ml/min; Magnesium 2.1 mg/dl (1.8-2.4); Phosphorus 2.2 mg/dl (2.5-4.9); Potassium 3.8 mmol/L (3.5-5.1)
[2020-11-17 06:03] LABS: Anisocytosis Present; Basophils # (auto) 0.02 K/uL (0-0.2); Basophils % (auto) 0.1 %; Dohle Bodies Occasional; Eosinophils # (auto) 0.03 K/uL (0-0.5); Eosinophils % (auto) 0.1 %; Hypochromasia Present; Immature Granulocytes # (auto) 0.17 K/uL (0.00-0.02); Immature Granulocytes % (auto) 0.6 %; Lymphocytes # (auto) 1.61 K/uL (1.2-3.4); Monocytes # (auto) 1.45 K/uL (0.11-0.59); Monocytes % (auto) 5.4 %; Neutrophils # (auto) 23.71 K/uL (1.4-6.5); Neutrophils % (auto) 87.8 %
[2020-11-17] MEDS: LACTATED RINGER'S 1,000 ML IV SCH (06:38)
--- NOTE | 2020-11-17 07:04 | CT Scan Report ---
CT SCAN OF THE ABDOMEN AND PELVIS WITHOUT CONTRAST CLINICAL HISTORY: abdominal pain COMPARISON STUDY: November 2018 TECHNIQUE: CT scan of the abdomen and pelvis was performed from the lung bases to the proximal femurs . Images are reviewed in the axial, sagittal, and coronal planes. IV contrast was not administered fo r this examination. A dose lowering technique was utilized adhering to the principles of ALARA. CT DOSE: FINDINGS: Lower chest: There is subtle groundglass attenuation the lungs with a mosaic pattern. Liver: The liver is enlarged measuring 24 cm. No focal masses are visualized on this noncontrast stud y. Gallbladder: Surgically absent Spleen: Enlarged measuring 18 cm Pancreas: Unremarkable. Adrenal glands: Unremarkable. Kidneys: There is mild right-sided hydronephrosis and right-sided perinephric stranding. 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 There is right ureteral dilatation. No ureteral ca lculi are visualized. Diagnostic considerations include a recently passed calculus, radiolucent calcu pérez, infection or other etiology for ureteral obstruction. Urologic follow-up recommended. Bowel: There are no transition zones indicate bowel obstruction. There is colonic diverticulosis. The re is no evidence of acute diverticulitis. The appendix appears normal. Peritoneum: There is no intraperitoneal free air or abdominal ascites. Vasculature: The abdominal aorta is normal in course and caliber. Adenopathy: None. Pelvic viscera: The bladder, and pelvic viscera are unremarkable. Skeletal structures: No destructive osseous lesions are seen. Postsurgical changes are present within the spine IMPRESSION: 1. No evidence of bowel obstruction. No evidence of free air 2. Pandiverticulosis. No evidence of acute diverticulitis 3. Normal appendix 4. Hepatosplenomegaly 5. 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 6. Mild right-sided hydronephrosis and hydroureter with perinephric stranding. No ureteral calculi id entified. Diagnostic considerations include recently passed calculus, infection, radiolucent calculus , or other etiology of ureteral obstruction. Urologic follow-up recommended. ACT 112: Negative or not required by law. Electronically signed by: Jayro Duke M.D. 11/17/2020 7:03 AM
--- NOTE | 2020-11-17 07:14 | CT Scan Report ---
CT chest diagnostic wo con CLINICAL HISTORY: Shortness of breath COMPARISON STUDY: 05/23/2020 CT DOSE: 1213.81 mGy.cm TECHNIQUE: CT of the thorax was performed from the thoracic inlet to the lung bases. Images are revi ewed in the axial, sagittal, and coronal planes. IV contrast was not administered for this examinatio n. A dose lowering technique was utilized adhering to the principles of ALARA. FINDINGS: Thyroid: There is redemonstration of a multinodular thyroid gland including a rim calcified 10 mm lef t lobe nodule and a 2 cm hypoechoic left lobe nodule. Thoracic aorta: The thoracic aorta is normal in course and caliber, noting standard 3 vessel arch jared ankita. Heart: There are coronary artery calcifications. There is no significant pericardial effusion. Lungs and pleural spaces: There is groundglass attenuation the lungs with a mosaic distribution sugge sting an element of air trapping. There are no pleural effusions. There is right upper lobe and right middle lobe peripheral nodularity, likely benign. Mediastinum: There is mild mediastinal lymphadenopathy, diminished when compared the preceding study. Sameera: Minimally enlarged hilar lymph nodes are again suspected. Axilla: There is no evidence of pathologic axillary lymphadenopathy Upper abdomen: There is equivocal mild splenomegaly Skeletal structures: There are no lytic or blastic osseous lesions. IMPRESSION: 1. Decreasing mediastinal and hilar lymphadenopathy 2. Improving bilateral groundglass pulmonary attenuation with a mosaic distribution. Diagnostic consi derations include pulmonary edema, atypical viral infection, hypersensitivity pneumonitis, or airway disease.. 3. Persistent multinodular thyroid gland ACT 112: Negative or not required by law. Electronically signed by: Jayro Duke M.D. 11/17/2020 7:13 AM
[2020-11-17] MEDS: INSULIN ASPART 100 UNITS/ML 3 ML PEN SC SCH ×4 (07:38→20:39)
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
--- NOTE | 2020-11-17 08:34 | Electrocardiogram Report ---
Test Reason : Blood Pressure : / mmHG Vent. Rate : 110 BPM Atrial Rate : 110 BPM P-R Int : 132 ms QRS Dur : 088 ms QT Int : 346 ms P-R-T Axes : 051 046 000 degrees QTc Int : 468 ms Poor data quality, interpretation may be adversely affected Sinus tachycardia Diffuse Minor Nonspecific ST and T wave abnormality Abnormal ECG When compared with ECG of 11-OCT-2020 04:02, No significant change was found Confirmed by Jaxon Valle ([id number]) on 11/17/2020 8:34:28 AM Referred By: REFERRED SELF Confirmed By:Jaxon Valle
--- NOTE | 2020-11-17 08:54 | Urology Consultation ---
Date of Consultation November 17, 2020 Assessment & Plan (1) Hydronephrosis of right kidney: 40-year-old female admitted for acute respiratory distress and metabolic acidosis; right hydronephrosis. - Plan of care reviewed with Dr. Patton, urologist eco industrial development consultant. - Febrile earlier today, Tmax 39.1. - Lab work reviewed - WBC 26.99 (previously 34.10), Creatinine 0.69. - CTAP shows right pyelonephritis, duplicated right collecting system, mild right hydro/hydroureter, no stone, distended bladder. - Hydronephrosis/hydroureter likely chronic due to duplicated system. - BCx prelim gram negative bacilli, presumed pneumonia but cannot exclude urinary source/pyelonephritis. - No urine studies collected on admission. - Pt currently on IV Vancomycin and Cefepime - continue per primary team, follow cultures. - No acute intervention indicated at this time. - Consider stent placement if acute changes, decompensates, persistent fever. - Recommend maintain Mayfield catheter for decompression. - Continue supportive care, antibiotics, and management per primary service. - Follow-up with our service outpatient. Thank you for allowing us to participate in the acute care of Ms. Gonzalez. Please reconsult us with additional questions, concerns or changes in patient status. History of Present Illness Reason for Consultation: R hydronephrosis, hydroureterperinephric stranding Requesting Physician: Dr. Faith Attending Physician: Zenon Faith MD History of Present Illness 40-year-old female with past medical history of diastolic heart failure, CAD s/p ROJAS, aortic stenosis and aortic regurgitation, asthma, DM type II, diabetic neuropathy, HTN, HLD, hep C, history of polysubstance abuse, opioid dependence, admitted for acute respiratory distress and metabolic acidosis. Patient presented to [facility] on 11/16/20 with shortness of breath and chest pain, productive cough x 1 day. Lab work showed leukocytosis with WBC 34.10, Creatinine 1.02, Hgb 9.6, Lactate 0.7. Blood cultures collected. No UA or culture collected on admission. COVID testing negative. ER course included IVF, Acetaminophen, Vancomycin, Cefepime, Magnesium, and Lactated Ringers. She had tachypnea and respiratory fatigue requiring BIPAP. She was admitted to hospital medicine service for acute respiratory distress and metabolic acidosis. Our service is consulted for right hydronephrosis, hydroureterperinephric stranding. Chart review: Febrile today, Tmax 39.1 @0500 Creatinine 0.69 WBC 26.99 Hgb 8.4 BCx prelim gram negative bacilli On IV Vancomycin, Cefepime Imaging CXR: Suspected subtle bilateral lower lung zone airspace opacities left greater than right. CTAP IMPRESSION: 1. No evidence of bowel obstruction. No evidence of free air 2. Pandiverticulosis. No evidence of acute diverticulitis 3. Normal appendix 4. Hepatosplenomegaly 5. 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 6. Mild right-sided hydronephrosis and hydroureter with perinephric stranding. No ureteral calculi identified. Patient seen and examined at bedside this morning. She is resting in bed, awakens easily to her name. Reports some right flank and right sided abdominal pain. Tolerating Mayfield catheter at present. Mayfield intact, patent, and draining cloudy yellow urine with moderate sediment and debris. Denies hematuria. She reports dysuria prior to arrival, but none at present. No nausea or vomiting. Reports intermittent fever/chills. Reports seeing a urologist in the past for kidney stones. She required surgical intervention with stent once in the past. No known family history of kidney stones. Denies family hx of prostate, bladder or kidney cancer. No additional concerns today. Allergies Allergy/AdvReac Type Severity Reaction Status Date / Time lidocaine Allergy Intermediate HIVES Verified 11/16/20 17:56 procaine Allergy Intermediate HIVES Verified 11/16/20 17:56 Penicillins Allergy Mild HAD NO Verified 11/16/20 17:56 PROBLEM WITH ZOSYN strawberry Allergy Mild HIVES Verified 11/16/20 17:56 cephalexin AdvReac Intermediate YEAST Verified 11/16/20 17:56 INFECTIONS tramadol AdvReac Intermediate SEIZURES Verified 11/16/20 17:56 azithromycin AdvReac Mild STOMACH Verified 11/16/20 17:56 PAIN Home Medications Medication Instructions Recorded Confirmed Type escitalopram oxalate 20 mg tablet 20 mg PO QAM 05/30/18 11/16/20 History (Lexapro) lisinopril 5 mg tablet 2.5 mg PO QAM 09/08/18 11/16/20 History metformin 1,000 mg tablet 1,000 mg PO BID 12/19/18 11/16/20 History atorvastatin 80 mg tablet 80 mg PO HS 12/28/18 11/16/20 History albuterol sulfate 90 mcg/actuation 2 puff INHALATION Q6 PRN 11/06/19 11/16/20 History aerosol inhaler buspirone 15 mg tablet 15 mg PO BID 11/06/19 11/16/20 History medroxyprogesterone 150 mg/mL 150 mg IM Q3M 11/06/19 11/16/20 History intramuscular syringe (Depo-Provera) nitroglycerin 0.4 mg sublingual 0.4 mg SUBLINGUAL UD PRN 11/06/19 11/16/20 History tablet (Nitrostat) glipizide 10 mg tablet 10 mg PO DAILYBD 02/22/20 11/16/20 History aspirin 81 mg tablet,delayed 81 mg PO QAM 30 Days #30 tab 02/24/20 11/16/20 Rx release clopidogrel 75 mg tablet 75 mg PO QAM 30 Days #30 tab 02/24/20 11/16/20 Rx metoprolol succinate 25 mg 25 mg PO DAILY 05/23/20 11/16/20 History tablet,extended release 24 hr ferrous sulfate 325 mg (65 mg 325 mg PO QDB #30 tab 05/25/20 11/16/20 Rx iron) tablet,delayed release potassium chloride 20 mEq 20 meq PO DAILY 08/09/20 11/16/20 History tablet,extended release(part/cryst) (Klor-Con M) insulin glargine 100 unit/mL (3 10 unit SUBCUT HS 09/18/20 11/16/20 History mL) subcutaneous pen (Lantus Solostar U-100 Insulin) meclizine 25 mg tablet 25 mg PO TID PRN 09/18/20 11/16/20 History mometasone (Asmanex Twisthaler) 2 inh INHALATION DAILY 09/18/20 11/16/20 History buprenorphine 8 mg-naloxone 2 mg 0.5 tab SUBLINGUAL TID 11/16/20 11/16/20 History sublingual tablet gabapentin 600 mg tablet 600 mg PO TID 11/16/20 11/16/20 History levetiracetam 500 mg tablet 500 mg PO BID 11/16/20 11/16/20 History spironolactone 25 mg tablet 25 mg PO DAILY 11/16/20 11/16/20 History torsemide 20 mg tablet 20 mg PO BID 11/16/20 11/16/20 History Patient History Medical History Acute electrocardiogram changes Aortic regurgitation Aortic stenosis Asthma Atypical chest pain Cannabis abuse Cellulitis of both lower extremities Chronic diastolic CHF (congestive heart failure) Coronary artery disease Depression Diabetes mellitus, type 2 Encounter for smoking cessation counseling GERD (gastroesophageal reflux disease) Gram negative sepsis Hepatitis C "Antibiotic screen positive, quantitative RNA positive 08/30/17" Hepatosplenomegaly History of drug abuse History of DVT (deep vein thrombosis) History of renal calculi Hypertension Hypocalcemia Opiate abuse, continuous Overdose Seizure disorder Surgical History History of cardiac cath 2017- 1 ROJAS to ramus, 2 ROJAS to L circumflex. 40-50% plaque to LAD 2017- distal disease (80%) within PDA History of carpal tunnel surgery History of lumbar spinal fusion Hx of tonsillectomy Status post cholecystectomy Family History Other Diabetes Heart disease Hypertension Kidney stones Seizures Social History Smoking Status: Current every day smoker Tobacco Type: Cigarettes Cigarettes Per Day: 10; Number of Years Since Quit: 31; Second Hand Exposure: Yes; Hx Alcohol Use: No Hx Substance Use: Yes (3 years drug free) Non-Prescribed Medications: Heroin, IV Drugs and Methamphetamines Last Used Substance: Unknown Last Used Substance Other:: 1.5 YEARS AGO Substance Use Type Other:: 1.5 years ago Preferred Language: Swedish Communication Ability: Effective Visual Impairment: No Limitations Hearing Ability: Normal Wired Music Operator Required: No Beliefs That Will Affect Care: None marital status: Single Current Living Situation: Significant Other Current Living Situation Comment: LIVES WITH ROOMMATES Feels Safe at Home: Yes Safety Concerns: Feels Safe At This Time Assistive Devices: Oxygen - Continuous Review of Systems Constitutional: as per Subjective / HPI Respiratory: + cough Gastrointestinal: as per Subjective / HPI Genitourinary: as per Subjective / HPI Physical Exam Constitutional: comfortable; no acute distress Respiratory: no respiratory distress and no labored breathing Cardiovascular: Extremities: no pedal edema Gastrointestinal (Abdomen): Inspection/Auscultation: abdomen normal to inspection; abdomen not distended Percussion/Palpation: + abdomen tender (mildly ttp right abdomen, no rebound or guarding) and abdomen soft Musculoskeletal: Head/Neck/Chest: normocephalic and head atraumatic Neurologic: moves all extremities drowsy, but answers questions Psychiatric: Orientation: alert and oriented x 3 Genitourinary: + CVA tenderness (right side) Mayfield intact, patent and draining cloudy yellow urine with moderate sediment and debris Results & [facility] ([facility]) Vital Signs (Past 12 Hours) Vital Signs Temp Pulse Pulse Resp BP BP Pulse Ox 11/17/20 08:00 85 11/17/20 07:30 87 117/65 96 11/17/20 07:00 36.9 C 80 26 H 117/65 96 11/17/20 06:30 90 90 24 116/65 116/65 97 11/17/20 05:30 99 H 120/58 L 94 11/17/20 05:14 37.6 C H 11/17/20 05:00 39.1 C H 11/17/20 04:31 109 H 113/75 95 11/17/20 03:32 38.6 C H 11/17/20 03:31 139/79 11/17/20 03:30 107 H 139/79 96 11/17/20 03:00 90 95 11/17/20 02:32 94 H 95 11/17/20 02:00 98 11/17/20 01:30 102 H 126/74 99 11/17/20 00:30 87 122/72 100 11/17/20 00:00 36.7 C 11/16/20 23:30 77 114/66 99 11/16/20 22:30 72 114/59 L 99 11/16/20 22:28 70 11/16/20 22:20 74 29 H 99 11/16/20 22:03 36.7 C 75 22 104/56 L 98 11/16/20 21:30 77 104/56 L 97 PG Care Time/CCT Total # of Minutes Spent Total Time Spent with Patient: Total time spent is greater than 50% in coordination of care (as documented) at patient's floor/unit and/or counseling patient: Coding Level of Care Code 15435 Inpt Consult Level 3 Diagnoses Hydronephrosis of right kidney N13.30
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
[2020-11-17] MEDS ORDERED: POTASSIUM PHOSPHATE 21 MMOL in SODIUM CHLORIDE 0.9% 500 ML IV ONE (10:30)
[2020-11-17 12:01] LABS: Appearance Urine Clear (Clear); Bacteria Urine Automated Negative (Negative); Bilirubin Urine Negative (Negative); Blood Urine 2+ (Negative); Color Urine Yellow; Epithelial Cell Urine Auto 20-30 /lpf (0-5); Glucose Urine UA Negative (Negative); Ketones Urine Trace (Negative); Leukocyte Esterase Urine 2+ (Negative); Nitrite Urine Negative (Negative); Protein Urine 1+ (Negative); RBC Urine Automated 0-4 /hpf (0-4); Specific Gravity Urine 1.012 (1.000-1.030); Urobilinogen Urine Negative (Negative); WBC Urine Automated >30 /hpf (0-5); pH Urine 6.5 (4.5-7.5)
[2020-11-17] MEDS ORDERED: GABAPENTIN 100 MG CAP PO ONE (14:22)
[2020-11-17] MEDS: LIDOCAINE 5% 1 PATCH TD SCH (14:41)
[2020-11-17] MEDS: METOPROLOL SUCC 25MG EXT REL TAB PO SCH (16:56)
[2020-11-17] MEDS: ESCITALOPRAM OXALATE 20 MG TAB PO SCH (16:57)
[2020-11-17] MEDS: ASPIRIN 81 MG ECTAB PO SCH (16:57)
[2020-11-17] MEDS: CLOPIDOGREL BISULFATE 75 MG TAB PO SCH (16:57)
[2020-11-17] MEDS: ENOXAPARIN INJ 40 MG/0.4 ML SYR SQ SCH (20:58)
[2020-11-17] MEDS: ATORVASTATIN 40 MG TAB PO SCH (20:59)
[2020-11-17] MEDS: GABAPENTIN 400 MG CAP PO SCH (20:59)
[2020-11-17] MEDS: levETIRAcetam 500 MG TAB PO SCH (20:59)
[2020-11-18] MEDS: CEFEPIME 2,000 MG in SYRINGE 0 ML IV SCH ×3 (00:54→16:44)
[2020-11-18] MEDS: ACETAMINOPHEN 325 MG TAB PO PRN ×2 (02:48→12:17)
[2020-11-18] MEDS: ASPIRIN 81 MG ECTAB PO SCH (08:33)
[2020-11-18] MEDS: CLOPIDOGREL BISULFATE 75 MG TAB PO SCH (08:34)
[2020-11-18] MEDS: ESCITALOPRAM OXALATE 20 MG TAB PO SCH (08:34)
[2020-11-18] MEDS: GABAPENTIN 400 MG CAP PO SCH ×2 (08:35→20:45)
[2020-11-18] MEDS: LIDOCAINE 5% 1 PATCH TD SCH (08:35)
[2020-11-18] MEDS: levETIRAcetam 500 MG TAB PO SCH ×2 (08:35→20:45)
[2020-11-18] MEDS: lisinopril 2.5 MG TAB PO SCH (08:36)
[2020-11-18] MEDS: METOPROLOL SUCC 25MG EXT REL TAB PO SCH (08:36)
[2020-11-18 08:44] LABS: Hematocrit (blood only) 28.2 % (37-47); Hemoglobin 8.9 g/dL (12.0-16.0); Mean Corpuscular Hemoglobin 25.4 pg (25-34); Mean Corpuscular Hgb Conc 31.6 g/dL (32-36); Mean Corpuscular Volume 80.3 fL (80-100); Mean Platelet Volume 10.3 fL (7.4-10.4); Platelet Count 455 K/uL (130-400); RDW Coefficient of Variation 20.8 % (11.5-14.5); RDW Standard Deviation 62.1 fL (36.4-46.3); Red Blood Count 3.51 M/uL (4.2-5.4); White Blood Count 16.82 K/uL (4.8-10.8)
[2020-11-18 09:01] LABS: BUN Creatinine Ratio 18.7 (10-20); Calcium 9.2 mg/dl (8.5-10.1); Creatinine Clr Calc Pharmacy 119.9 ml/min; Est GFR (African American) 126.9 ml/min; Est GFR (Non-African American) 109.5 ml/min; Magnesium 2.1 mg/dl (1.8-2.4); Potassium 3.8 mmol/L (3.5-5.1)
[2020-11-18 09:10] LABS: Albumin Globulin Ratio 0.4 (0.9-2); Bilirubin,Total 0.5 mg/dl (0.2-1); Globulin 5.4 gm/dl (2.5-4.0); Phosphorus 3.3 mg/dl (2.5-4.9); Total Protein 7.4 gm/dl (6.4-8.2)
[2020-11-18] MEDS: INSULIN ASPART 100 UNITS/ML 3 ML PEN SC SCH ×4 (09:10→21:02)
[2020-11-18 09:27] LABS: Anisocytosis Present
[2020-11-18 09:35] LABS: ALC (manual) 1.61 K/uL (1.2-3.4); ANC (manual) 14.18 K/uL (1.4-6.5); Blast # (manual) 0.15 K/uL (0-0); Blast Cells % (manual) 0.9 %; Lymphocytes # (manual) 1.61 K/uL (1.2-3.4); Lymphocytes % (manual) 9.6 %; Monocytes # (manual) 0.87 K/uL (0.11-0.59); Monocytes % (manual) 5.2 %; Neutrophils # (manual) 14.18 K/uL (1.4-6.5); Neutrophils % (manual) 84.3 %
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
[2020-11-18] MEDS: ADVANCED PROBIOTIC 1250 MG CAPSULE PO SCH (14:52)
[2020-11-18] MEDS: BUPRENORPHINE/NALOXONE 8/2 MG TAB SL SCH ×2 (14:53→20:46)
[2020-11-18] MEDS ORDERED: GABAPENTIN 100 MG CAP PO ONE (16:44)
[2020-11-18] MEDS: DOXYCYCLINE HYCLATE 100 MG in DEXTROSE 5% 100 ML IV SCH (17:51)
[2020-11-18] MEDS: ATORVASTATIN 40 MG TAB PO SCH (20:45)
[2020-11-18] MEDS: ENOXAPARIN INJ 40 MG/0.4 ML SYR SQ SCH (22:15)
[2020-11-19] MEDS: CEFEPIME 2,000 MG in SYRINGE 0 ML IV SCH ×3 (00:10→17:13)
[2020-11-19] MEDS: ACETAMINOPHEN 325 MG TAB PO PRN ×2 (00:40→08:00)
[2020-11-19] MEDS: DOXYCYCLINE HYCLATE 100 MG in DEXTROSE 5% 100 ML IV SCH ×2 (04:45→17:13)
[2020-11-19 07:09] LABS: Hematocrit (blood only) 29.3 % (37-47); Hemoglobin 9.3 g/dL (12.0-16.0); Mean Corpuscular Hemoglobin 25.8 pg (25-34); Mean Corpuscular Hgb Conc 31.7 g/dL (32-36); Mean Corpuscular Volume 81.2 fL (80-100); Mean Platelet Volume 10.6 fL (7.4-10.4); Platelet Count 567 K/uL (130-400); RDW Coefficient of Variation 20.8 % (11.5-14.5); RDW Standard Deviation 62.3 fL (36.4-46.3); Red Blood Count 3.61 M/uL (4.2-5.4); White Blood Count 14.31 K/uL (4.8-10.8)
[2020-11-19 07:30] LABS: Albumin Globulin Ratio 0.4 (0.9-2); Albumin Level 2.2 gm/dl (3.4-5.0); BUN Creatinine Ratio 21.8 (10-20); Bilirubin,Total 0.3 mg/dl (0.2-1); Calcium 9.4 mg/dl (8.5-10.1); Creatinine Clr Calc Pharmacy 106.8 ml/min; Est GFR (African American) 117.7 ml/min; Est GFR (Non-African American) 101.6 ml/min; Globulin 5.2 gm/dl (2.5-4.0); Magnesium 1.8 mg/dl (1.8-2.4); Phosphorus 4.3 mg/dl (2.5-4.9); Potassium 4.6 mmol/L (3.5-5.1); Total Protein 7.4 gm/dl (6.4-8.2)
[2020-11-19] MEDS: INSULIN ASPART 100 UNITS/ML 3 ML PEN SC SCH ×4 (07:58→20:17)
[2020-11-19] MEDS: BUPRENORPHINE/NALOXONE 8/2 MG TAB SL SCH ×3 (08:00→20:21)
[2020-11-19] MEDS: levETIRAcetam 500 MG TAB PO SCH ×2 (08:01→20:15)
[2020-11-19] MEDS: GABAPENTIN 400 MG CAP PO SCH ×3 (08:01→20:13)
[2020-11-19] MEDS: METOPROLOL SUCC 25MG EXT REL TAB PO SCH (08:02)
[2020-11-19] MEDS: ASPIRIN 81 MG ECTAB PO SCH (08:02)
[2020-11-19] MEDS: lisinopril 2.5 MG TAB PO SCH (08:02)
[2020-11-19] MEDS: CLOPIDOGREL BISULFATE 75 MG TAB PO SCH (08:03)
[2020-11-19] MEDS: ADVANCED PROBIOTIC 1250 MG CAPSULE PO SCH (08:03)
[2020-11-19] MEDS: ESCITALOPRAM OXALATE 20 MG TAB PO SCH (08:03)
[2020-11-19] MEDS: LIDOCAINE 5% 1 PATCH TD SCH (09:18)
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
[2020-11-19] MEDS ORDERED: MAGNESIUM SULFATE / D5W 1 GM/100 ML BAG IV ONE (11:00)
[2020-11-19] MEDS: ATORVASTATIN 40 MG TAB PO SCH (20:15)
[2020-11-19] MEDS: ENOXAPARIN INJ 40 MG/0.4 ML SYR SQ SCH (20:17)
[2020-11-20] MEDS: ACETAMINOPHEN 325 MG TAB PO PRN (00:49)
[2020-11-20] MEDS: CEFEPIME 2,000 MG in SYRINGE 0 ML IV SCH ×2 (00:50→08:27)
[2020-11-20] MEDS: DOXYCYCLINE HYCLATE 100 MG in DEXTROSE 5% 100 ML IV SCH (04:41)
[2020-11-20 06:14] LABS: Hematocrit (blood only) 29.6 % (37-47); Hemoglobin 9.2 g/dL (12.0-16.0); Mean Corpuscular Hemoglobin 25.6 pg (25-34); Mean Corpuscular Hgb Conc 31.1 g/dL (32-36); Mean Corpuscular Volume 82.2 fL (80-100); Mean Platelet Volume 10.3 fL (7.4-10.4); Platelet Count 586 K/uL (130-400); RDW Coefficient of Variation 20.6 % (11.5-14.5); RDW Standard Deviation 62.5 fL (36.4-46.3)
[2020-11-20 06:30] LABS: BUN Creatinine Ratio 22.3 (10-20); Creatinine Clr Calc Pharmacy 100.3 ml/min; Est GFR (African American) 112.1 ml/min; Est GFR (Non-African American) 96.8 ml/min; Magnesium 1.9 mg/dl (1.8-2.4); Potassium 4.7 mmol/L (3.5-5.1)
[2020-11-20 07:25] VITALS: BP 121/71; TEMP 98.2; O2SAT 96
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
[2020-11-20] MEDS: INSULIN ASPART 100 UNITS/ML 3 ML PEN SC SCH (08:10)
[2020-11-20] MEDS: METOPROLOL SUCC 25MG EXT REL TAB PO SCH (08:16)
[2020-11-20] MEDS: levETIRAcetam 500 MG TAB PO SCH (08:16)
[2020-11-20] MEDS: lisinopril 2.5 MG TAB PO SCH (08:16)
[2020-11-20] MEDS: ADVANCED PROBIOTIC 1250 MG CAPSULE PO SCH (08:17)
[2020-11-20] MEDS: CLOPIDOGREL BISULFATE 75 MG TAB PO SCH (08:17)
[2020-11-20] MEDS: GABAPENTIN 400 MG CAP PO SCH (08:17)
[2020-11-20] MEDS: ESCITALOPRAM OXALATE 20 MG TAB PO SCH (08:18)
[2020-11-20] MEDS: ASPIRIN 81 MG ECTAB PO SCH (08:18)
[2020-11-20] MEDS: BUPRENORPHINE/NALOXONE 8/2 MG TAB SL SCH (08:22)
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
[2020-11-20] MEDS: LIDOCAINE 5% 1 PATCH TD SCH (08:28)
[2020-11-20 09:11] VITALS: PULSE 81
[2020-11-20 12:40] LABS: Phosphorus 5.3 mg/dl (2.5-4.9)
== END 2020-11-20 09:57 | disposition home or self-care (01) | DRG 871 ==
LOC: ED 13:06 → SUATTDRO 18:52 → 1E 18:52 → 2E 11-18 22:53

== ENCOUNTER 2021-07-10 18:32 | Inpatient (IN) ==
[2021-07-10] MEDS ORDERED: ALBUT/IPRATROP 3MG/0.5MG NEB 3 ML VIAL NEB STA (18:56)
[2021-07-10] MEDS ORDERED: DOXYCYCLINE HYCLATE 100 MG CAP PO STA (18:56)
[2021-07-10] MEDS ORDERED: methylPREDNISolone 125 MG/2 ML VIAL IV STA (19:06)
--- NOTE | 2021-07-10 19:06 | Emergency Department Note ---
Impression & Plan Respiratory failure, Multifocal pneumonia, Acute exacerbation of chronic obstructive pulmonary disease, Cellulitis of leg, right, Elevated troponin I level ED Provider Note Provider: Kojo Sauceda MD DATE OF SERVICE: 07/10/2021 CHIEF COMPLAINT: Fatigue, twitch, cough HISTORY OF PRESENT ILLNESS: Patient is a 81-year-old female history of CAD with stents, aortic stenosis, diabetes, peripheral neuropathy, hypertension, hepatitis C, history of polysubstance abuse, history of diastolic CHF, asthma presenting today via ambulance from her house. Patient states her boyfriend stated she seemed more fatigue and off her speech was maybe a bit off earlier. She states that he been having some increased cough and has been feeling more weak and more short of breath. Reports that she has chronic low back pain with radiation down the legs. States she did she did fall to the ground yesterday at home just fell backwards. She states this has happened in the past but denies striking her head. Does complain of some headache at this time and feeling thirsty. Denies any abdominal pain or nausea or vomiting at this point. Denies active chest pain at this time. States he has a little bit of slight numbness of the right hand but denies any other new numbness in the extremities. Patient states her speech does not feel that off at this point. Patient states she has a prior history of alcohol and drug use but states she is no longer using these. Patient has noted some blisters occasionally on her right leg and does have some Band-Aids there is little more red and swollen than normal. Has been taking her home furosemide. Patient states he was previously on home oxygen but not for 5 or 6 months. EMS noted the patient to be hypoxic on room air. Patient states she has been using her home inhalers nebulizers. She continues to smoke. REVIEW OF SYSTEMS: A total of 10 review of systems was obtained and negative except as stated above in the HPI. PAST MEDICAL HISTORY: As noted above MEDICATIONS: Reviewed home medications SOCIAL HISTORY: Smoker, prior history of drug and alcohol use PHYSICAL EXAM: GENERAL: alert and oriented in no acute distress on stretcher, fatigued in appearance Head: normocephalic and atraumatic EYES: No injection, discharge or icterus. PERRL, EOMI. NECK: Trachea midline. Supple without posterior midline tenderness ENT: Mucous membranes pink and slightly dry. LUNGS: Airway patent. No retractions. Breath sounds with diffuse wheeze HEART: Regular tachycardic rate and rhythm. No chest wall tenderness ABDOMEN: Soft and non-tender, without guarding or rebound. SKIN: Acyanotic, warm, dry, without rashes EXTREMITIES: Patient with trace edema left leg with 1-2+ edema of the right leg with some mild erythema of the right lower leg with a bandage and some small abrasions of the lower anterior weiss. No fluctuance noted. Some slight tender ness of the right posterior calf. NEUROLOGICAL: No focal deficits. No aphasia. No facial droop or slurred speech. Normal strength and tone in the extremities. Sensation to gross touch normal except for some slight subjective dislodgment in the left hand. Midline EK bpm sinus tachycardia. No PVC or PAC. No acute ST segment elevation or depression. Nonspecific inferior T wave changes. QTc 475. CONTINUOUS CARDIAC MONITORING: was ordered and showed a heart rate of 110s-120s bpm in sinus tachycardia Patient's laboratory studies and imaging reviewed. Differential includes Infection, dehydration, metabolic abnormality, hypo/hyperglycemia, electrolyte disturbance, anemia, hypoxia, cardiac sources, intracerebral event, toxicologic, neurologic, as well as other pathologies. IMPRESSION/MEDICAL DECISION MAKING: Patient with extensive past medical history. Patient has some asymmetric swelling of the right leg which she states is baseline but increased redness and some slight calf tenderness. Ultrasound to be completed here. Question however this may represent cellulitis. Patient with audible wheeze and significant hypoxia on room air. Oxygen supplementation was ordered. DuoNeb was ordered. Patient given doxycycline to cover any possible pulmonary pathology as well as a ny possible cellulitis in the right leg. Blood cultures and lactate were ordered. Patient does not clinically appear that fluid overload at this time. Patient with a little bit of slight numbness in the left hand but no other significant new neuro deficits noted at this time. I doubt this represents acute CVA at this point. Given her fall yesterday however with her complaints a CT head will be completed. With her history of smoking some steroids were ordered. Chest x-ray here per radiology report concerning for possible pneumonitis versus pulmonary edema. CT for further evaluation will be completed. Blood work with stable mild anemia however increased leukocytosis of 26 today. Procalcitonin elevated. Covered additionally with cefepime for broad antimicrobial coverage. Evidence of acute kidney injury. Hypomagnesemia magnesium supplementation ordered. Slight troponin elevation noted. Aspirin ordered. Believe likely from her hypoxia earlier. Patient given small fluid boluses again clinically I feel like she is more hypovolemic and hypervolemic --received about 250mL of NS. Patient during this with some increased SOB and WOB and thus Bipap ordered. Patient to be admitted. Will defer DVT US till resp improvement. Patient is much more comfortable on BiPAP. Hospitalist team contacted. Later repeat troponin and BMP are trending towards improvement. DIAGNOSIS: Hypoxic respiratory failure, multifocal pneumonia, right leg swelling/cellulitis, COPD exacerbation, elevated troponin DISPOSITION: Hospitalist will evaluate Patient was agreeable with this plan. Critical Care I have personally spent 42 minutes of critical care time in the direct management of this patient. This includes bedside care, interpretation of diagnostic studies, and testing, discussion with consultants, patient, and other required patient management activities. These 42 minutes is in excess of all separately billable procedures. Past Med/Surg History Medical History Acute electrocardiogram changes Aortic regurgitation Aortic stenosis Asthma Atypical chest pain Cannabis abuse Cellulitis of both lower extremities Chronic diastolic CHF (congestive heart failure) Coronary artery disease Depression Diabetes mellitus, type 2 Encounter for smoking cessation counseling GERD (gastroesophageal reflux disease) Gram negative sepsis Hepatitis C "Antibiotic screen positive, quantitative RNA positive 08/30/17" Hepatosplenomegaly History of drug abuse History of DVT (deep vein thrombosis) History of renal calculi Hypertension Hypocalcemia Opiate abuse, continuous Overdose Seizure disorder Surgical History History of cardiac cath 2017- 1 ROJAS to ramus, 2 ROJAS to L circumflex. 40-50% plaque to LAD 2018- distal disease (80%) within PDA History of carpal tunnel surgery History of lumbar spinal fusion Hx of tonsillectomy Status post cholecystectomy Family History Other Diabetes Heart disease Hypertension Kidney stones Seizures Social History Smoking Status: Heavy tobacco smoker Tobacco Type: Cigarettes Cigarettes Per Day: 10; Number of Years Since Quit: 31; Second Hand Exposure: Yes; Hx Alcohol Use: No Hx Substance Use: Yes (3 years drug free) Non-Prescribed Medications: Heroin, IV Drugs and Methamphetamines Last Used Substance: Unknown Last Used Substance Other:: 1.5 YEARS AGO Substance Use Type Other:: 1.5 years ago Preferred Language: Estonian Communication Ability: Effective Visual Impairment: No Limitations Hearing Ability: Normal Wet Chemistry Analyst Required: No Beliefs That Will Affect Care: None marital status: Single Current Living Situation: Significant Other Current Living Situation Comment: LIVES WITH ROOMMATES Feels Safe at Home: Yes Assistive Devices: Oxygen - Continuous (pt wears oxygen as needed) Allergies Allergies Allergy/AdvReac Type Severity Reaction Status Date / Time lidocaine Allergy Intermediate HIVES Verified 07/10/21 21:33 procaine Allergy Intermediate HIVES Verified 07/10/21 21:33 Penicillins Allergy Mild HAD NO Verified 07/10/21 21:33 PROBLEM WITH ZOSYN strawberry Allergy Mild HIVES Verified 07/10/21 21:33 cephalexin AdvReac Intermediate YEAST Verified 07/10/21 21:33 INFECTIONS tramadol AdvReac Intermediate SEIZURES Verified 07/10/21 21:33 azithromycin AdvReac Mild STOMACH Verified 07/10/21 21:33 PAIN Home Meds Home Medications Medication Instructions Recorded Confirmed albuterol sulfate 2.5 mg INHALATION Q4 PRN 07/10/21 07/10/21 albuterol sulfate 90 mcg/actuation 2 puff INHALATION Q4 PRN 07/10/21 07/10/21 aerosol inhaler atorvastatin 80 mg tablet 80 mg PO DAILY 07/10/21 07/10/21 benzonatate 100 mg capsule 100 mg PO TID PRN 07/10/21 07/10/21 buprenorphine 8 mg-naloxone 2 mg 0.5 tab SUBLINGUAL TID 07/10/21 07/10/21 sublingual tablet buspirone 15 mg tablet 15 mg PO BID 07/10/21 07/10/21 clopidogrel 75 mg tablet 75 mg PO DAILY 07/10/21 07/10/21 cyclobenzaprine 10 mg tablet 10 mg PO BID 07/10/21 07/10/21 doxycycline hyclate 100 mg tablet 100 mg PO BID 07/10/21 07/10/21 escitalopram oxalate 20 mg tablet 20 mg PO DAILY 07/10/21 07/10/21 fluconazole 150 mg tablet 150 mg PO .ONE TIME DOSE 07/10/21 07/10/21 glipizide 10 mg tablet 10 mg PO DAILY 07/10/21 07/10/21 levetiracetam 500 mg tablet 500 mg PO BID 07/10/21 07/10/21 lisinopril 5 mg tablet 2.5 mg PO DAILY 07/10/21 07/10/21 loratadine 10 mg tablet 10 mg PO DAILY 07/10/21 07/10/21 medroxyprogesterone 150 mg/mL 150 mg IM .Q3MO 07/10/21 07/10/21 intramuscular suspension meloxicam 7.5 mg tablet 7.5 mg PO DAILY 07/10/21 07/10/21 metformin 1,000 mg tablet 1,000 mg PO BID 07/10/21 07/10/21 metoprolol succinate 25 mg 25 mg PO DAILY 07/10/21 07/10/21 tablet,extended release 24 hr omeprazole 20 mg tablet,delayed 20 mg PO DAILY 07/10/21 07/10/21 release polyethylene glycol 3350 17 gram 17 g PO DAILY PRN 07/10/21 07/10/21 oral powder packet (Miralax) potassium chloride 20 mEq 20 meq PO DAILY 07/10/21 07/10/21 tablet,extended release(part/cryst) (Klor-Con M) spironolactone 25 mg tablet 25 mg PO DAILY 07/10/21 07/10/21 topiramate 25 mg tablet 25 mg PO BID 07/10/21 07/10/21 torsemide 20 mg tablet 20 mg PO BID 07/10/21 07/10/21 trazodone 50 mg tablet 25 - 50 mg PO HS 07/10/21 07/10/21 Results & Data (ED) Vital Signs Vital Signs - 24 hr 07/10/21 18:40 07/10/21 18:48 07/10/21 18:50 Temperature 36.9 C Temperature Source Oral Pulse Rate 121 H 124 H 119 H Pulse Rate from SpO2 Sensor 122 H 118 H Pulse Rhythm Regular Pulse Strength Normal Respiratory Rate 20 26 H 20 Respiratory Effort / Characteristics Non-Labored Respiratory Depth Normal Respiratory Pattern Regular Blood Pressure 99/58 L Blood Pressure Mean 71 Blood Pressure Position Sitting Pulse Oximetry 88 L 74 L 91 Oxygen Delivery Method Room Air Oxygen Flow Rate 0 Fraction of Inspired Oxygen SaO2/FiO2 Ratio Sepsis Recent Fever Within 48 Hours No Sepsis New/Unexplained Change in Mental Status N/A Sepsis Action Taken by Nursing Physician Notified Oxygen Flow Rate - Titration Pulse Oximetry Post Tiitration 07/10/21 18:57 07/10/21 18:59 07/10/21 19:00 Temperature Temperature Source Pulse Rate 122 H Pulse Rate from SpO2 Sensor 122 H Pulse Rhythm Pulse Strength Respiratory Rate 20 Respiratory Effort / Characteristics Spontaneous Labored Respiratory Depth Shallow Respiratory Pattern Tachypnea Blood Pressure 104/57 L Blood Pressure Mean 72 Blood Pressure Position Pulse Oximetry 74 L 88 L Oxygen Delivery Method Room Air Oxygen Flow Rate 0 Fraction of Inspired Oxygen SaO2/FiO2 Ratio Sepsis Recent Fever Within 48 Hours Sepsis New/Unexplained Change in Mental Status Sepsis Action Taken by Nursing Oxygen Flow Rate - Titration 5 Pulse Oximetry Post Tiitration 91 07/10/21 19:10 07/10/21 19:20 07/10/21 19:30 Temperature Temperature Source Pulse Rate 127 H 121 H 123 H Pulse Rate from SpO2 Sensor 128 H 126 H Pulse Rhythm Pulse Strength Respiratory Rate 20 20 20 Respiratory Effort / Characteristics Respiratory Depth Respiratory Pattern Blood Pressure 107/30 L Blood Pressure Mean 55 Blood Pressure Position Pulse Oximetry 88 L 93 Oxygen Delivery Method Oxygen Flow Rate Fraction of Inspired Oxygen SaO2/FiO2 Ratio Sepsis Recent Fever Within 48 Hours Sepsis New/Unexplained Change in Mental Status Sepsis Action Taken by Nursing Oxygen Flow Rate - Titration Pulse Oximetry Post Tiitration 07/10/21 19:40 07/10/21 20:42 07/10/21 21:00 Temperature Temperature Source Pulse Rate 124 H 121 H Pulse Rate from SpO2 Sensor Pulse Rhythm Pulse Strength Respiratory Rate 20 36 H Respiratory Effort / Characteristics Respiratory Depth Respiratory Pattern Blood Pressure 109/66 103/70 Blood Pressure Mean 80 81 Blood Pressure Position Pulse Oximetry Oxygen Delivery Method Oxygen Flow Rate Fraction of Inspired Oxygen SaO2/FiO2 Ratio Sepsis Recent Fever Within 48 Hours Sepsis New/Unexplained Change in Mental Status Sepsis Action Taken by Nursing Oxygen Flow Rate - Titration Pulse Oximetry Post Tiitration 07/10/21 21:07 07/10/21 21:30 07/10/21 22:01 Temperature Temperature Source Pulse Rate 123 H 124 H 127 H Pulse Rate from SpO2 Sensor Pulse Rhythm Pulse Strength Respiratory Rate 35 H 31 H 36 H Respiratory Effort / Characteristics Spontaneous Labored Short of Breath Respiratory Depth Deep Respiratory Pattern Regular Tachypnea Blood Pressure 116/73 125/85 Blood Pressure Mean 87 98 Blood Pressure Position Pulse Oximetry 92 91 96 Oxygen Delivery Method BiPAP Oxygen Flow Rate Fraction of Inspired Oxygen 40 50 SaO2/FiO2 Ratio Sepsis Recent Fever Within 48 Hours Sepsis New/Unexplained Change in Mental Status Sepsis Action Taken by Nursing Oxygen Flow Rate - Titration Pulse Oximetry Post Tiitration 07/10/21 22:02 Temperature Temperature Source Pulse Rate 126 H Pulse Rate from SpO2 Sensor Pulse Rhythm Pulse Strength Respiratory Rate 26 H Respiratory Effort / Characteristics Respiratory Depth Respiratory Pattern Blood Pressure Blood Pressure Mean Blood Pressure Position Pulse Oximetry 92 Oxygen Delivery Method CPAP Oxygen Flow Rate Fraction of Inspired Oxygen 50 SaO2/FiO2 Ratio 184 Sepsis Recent Fever Within 48 Hours Sepsis New/Unexplained Change in Mental Status Sepsis Action Taken by Nursing Oxygen Flow Rate - Titration Pulse Oximetry Post Tiitration Laboratory Data Result diagrams: 07/10/21 19:00 07/10/21 21:20 Lab Results 07/10/21 07/10/21 07/10/21 Range/Units 19:00 19:00 19:00 WBC 26.09 H (4.8-10.8) K/uL RBC 3.93 L (4.2-5.4) M/uL Hgb 10.8 L (12.0-16.0) g/dL Hct 33.1 L (37-47) % MCV 84.2 (80-100) fL MCH 27.5 (25-34) pg MCHC 32.6 (32-36) g/dL RDW Std Deviation 53.9 H (36.4-46.3) fL RDW Coeff of Hannah 17.4 H (11.5-14.5) % Plt Count 296 (130-400) K/uL MPV 10.1 (7.4-10.4) fL Immature Gran % (Auto) 0.4 % Neut % (Auto) 83.6 % Lymph % (Auto) 11.3 % Bay % (Auto) 4.0 % Eos % (Auto) 0.5 % Baso % (Auto) 0.2 % Neut # (Auto) 21.82 H (1.4-6.5) K/uL Lymph # (Auto) 2.94 (1.2-3.4) K/uL Bay # (Auto) 1.04 H (0.11-0.59) K/uL Eos # (Auto) 0.14 (0-0.5) K/uL Baso # (Auto) 0.04 (0-0.2) K/uL Immature Gran # (Auto) 0.11 H (0.00-0.02) K/uL Echinocytes 1+ PT 12.4 H (9.0-12.0) Seconds INR 1.2 H (0.9-1.1) VBG pH (7.36-7.41) VBG pCO2 (38-50) mmHg VBG pO2 mmHg VBG HCO3 mmol/L VBG O2 Saturation % VBG Base Excess mEq/L Barometric Pressure mm/Hg Sodium 133 L (136-145) mmol/L Potassium 3.8 (3.5-5.1) mmol/L Chloride 103 (98-107) mmol/L Carbon Dioxide 20 L (21-32) mmol/L Anion Gap 10 (3-11) BUN 31 H (6-23) mg/dl Creatinine 1.65 H (0.6-1.2) mg/dl Est Cr Clr Drug Dosing 48.2 ml/min Est GFR ( Amer) 43.6 ml/min Est GFR (Non-Af Amer) 37.6 ml/min BUN/Creatinine Ratio 18.8 (10-20) Glucose 55 L (70-99(Fasting)) mg/dl Lactate (0.4-2.0) mmol/L Calcium 7.5 L (8.5-10.1) mg/dl Magnesium 1.4 L (1.7-2.4) mg/dl Total Bilirubin 0.7 (0.2-1.0) mg/dl AST 35 (13-39) U/L ALT 24 (7-52) U/L Alkaline Phosphatase 77 (34-104) U/L Ammonia (18-72) umol/L Troponin I 0.08 H* (0-0.04) ng/ml B-Natriuretic Peptide (0-100) pg/ml Total Protein 6.4 (6.0-8.3) gm/dl Albumin 3.6 (3.4-5.0) gm/dl Globulin 2.8 (2.5-4.0) gm/dl Albumin/Globulin Ratio 1.3 (0.9-2) Procalcitonin (0-0.5) ng/ml TSH (0.300-4.500) uIu/ml Urine Color Urine Appearance (Clear) Urine pH (4.5-7.5) Ur Specific [place] (1.000-1.030) Urine Protein (Negative) Urine Glucose (UA) (Negative) Urine Ketones (Negative) Urine Blood (Negative) Urine Nitrite (Negative) Urine Bilirubin (Negative) Urine Urobilinogen (Negative) Ur Leukocyte Esterase (Negative) SARS-CoV-2, RNA, NAAT (NEGATIVE) 07/10/21 07/10/21 07/10/21 Range/Units 19:00 19:00 19:19 WBC (4.8-10.8) K/uL RBC (4.2-5.4) M/uL Hgb (12.0-16.0) g/dL Hct (37-47) % MCV (80-100) fL MCH (25-34) pg MCHC (32-36) g/dL RDW Std Deviation (36.4-46.3) fL RDW Coeff of Hannah (11.5-14.5) % Plt Count (130-400) K/uL MPV (7.4-10.4) fL Immature Gran % (Auto) % Neut % (Auto) % Lymph % (Auto) % Bay % (Auto) % Eos % (Auto) % Baso % (Auto) % Neut # (Auto) (1.4-6.5) K/uL Lymph # (Auto) (1.2-3.4) K/uL Bay # (Auto) (0.11-0.59) K/uL Eos # (Auto) (0-0.5) K/uL Baso # (Auto) (0-0.2) K/uL Immature Gran # (Auto) (0.00-0.02) K/uL Echinocytes PT (9.0-12.0) Seconds INR (0.9-1.1) VBG pH (7.36-7.41) VBG pCO2 (38-50) mmHg VBG pO2 mmHg VBG HCO3 mmol/L VBG O2 Saturation % VBG Base Excess mEq/L Barometric Pressure mm/Hg Sodium (136-145) mmol/L Potassium (3.5-5.1) mmol/L Chloride (98-107) mmol/L Carbon Dioxide (21-32) mmol/L Anion Gap (3-11) BUN (6-23) mg/dl Creatinine (0.6-1.2) mg/dl Est Cr Clr Drug Dosing ml/min Est GFR ( Amer) ml/min Est GFR (Non-Af Amer) ml/min BUN/Creatinine Ratio (10-20) Glucose (70-99(Fasting)) mg/dl Lactate (0.4-2.0) mmol/L Calcium (8.5-10.1) mg/dl Magnesium (1.7-2.4) mg/dl Total Bilirubin (0.2-1.0) mg/dl AST (13-39) U/L ALT (7-52) U/L Alkaline Phosphatase (34-104) U/L Ammonia (18-72) umol/L Troponin I (0-0.04) ng/ml B-Natriuretic Peptide (0-100) pg/ml Total Protein (6.0-8.3) gm/dl Albumin (3.4-5.0) gm/dl Globulin (2.5-4.0) gm/dl Albumin/Globulin Ratio (0.9-2) Procalcitonin 0.71 H (0-0.5) ng/ml TSH 0.641 (0.300-4.500) uIu/ml Urine Color Urine Appearance (Clear) Urine pH (4.5-7.5) Ur Specific [place] (1.000-1.030) Urine Protein (Negative) Urine Glucose (UA) (Negative) Urine Ketones (Negative) Urine Blood (Negative) Urine Nitrite (Negative) Urine Bilirubin (Negative) Urine Urobilinogen (Negative) Ur Leukocyte Esterase (Negative) SARS-CoV-2, RNA, NAAT NEGATIVE (NEGATIVE) 07/10/21 07/10/21 07/10/21 Range/Units 19:35 19:59 19:59 WBC (4.8-10.8) K/uL RBC (4.2-5.4) M/uL Hgb (12.0-16.0) g/dL Hct (37-47) % MCV (80-100) fL MCH (25-34) pg MCHC (32-36) g/dL RDW Std Deviation (36.4-46.3) fL RDW Coeff of Hannah (11.5-14.5) % Plt Count (130-400) K/uL MPV (7.4-10.4) fL Immature Gran % (Auto) % Neut % (Auto) % Lymph % (Auto) % Bay % (Auto) % Eos % (Auto) % Baso % (Auto) % Neut # (Auto) (1.4-6.5) K/uL Lymph # (Auto) (1.2-3.4) K/uL [place] # (Auto) (0.11-0.59) K/uL Eos # (Auto) (0-0.5) K/uL Baso # (Auto) (0-0.2) K/uL Immature Gran # (Auto) (0.00-0.02) K/uL Echinocytes PT (9.0-12.0) Seconds INR (0.9-1.1) VBG pH 7.43 H (7.36-7.41) VBG pCO2 34 L (38-50) mmHg VBG pO2 42 mmHg VBG HCO3 22 mmol/L VBG O2 Saturation 75.5 % VBG Base Excess -1.6 mEq/L Barometric Pressure 738.1 mm/Hg Sodium (136-145) mmol/L Potassium (3.5-5.1) mmol/L Chloride (98-107) mmol/L Carbon Dioxide (21-32) mmol/L Anion Gap (3-11) BUN (6-23) mg/dl Creatinine (0.6-1.2) mg/dl Est Cr Clr Drug Dosing ml/min Est GFR ( Amer) ml/min Est GFR (Non-Af Amer) ml/min BUN/Creatinine Ratio (10-20) Glucose (70-99(Fasting)) mg/dl Lactate 1.7 (0.4-2.0) mmol/L Calcium (8.5-10.1) mg/dl Magnesium (1.7-2.4) mg/dl Total Bilirubin (0.2-1.0) mg/dl AST (13-39) U/L ALT (7-52) U/L Alkaline Phosphatase (34-104) U/L Ammonia (18-72) umol/L Troponin I (0-0.04) ng/ml B-Natriuretic Peptide 200 H (0-100) pg/ml Total Protein (6.0-8.3) gm/dl Albumin (3.4-5.0) gm/dl Globulin (2.5-4.0) gm/dl Albumin/Globulin Ratio (0.9-2) Procalcitonin (0-0.5) ng/ml TSH (0.300-4.500) uIu/ml Urine Color Urine Appearance (Clear) Urine pH (4.5-7.5) Ur Specific [place] (1.000-1.030) Urine Protein (Negative) Urine Glucose (UA) (Negative) Urine Ketones (Negative) Urine Blood (Negative) Urine Nitrite (Negative) Urine Bilirubin (Negative) Urine Urobilinogen (Negative) Ur Leukocyte Esterase (Negative) SARS-CoV-2, RNA, NAAT (NEGATIVE) 07/10/21 07/10/21 07/10/21 Range/Units 21:20 21:20 22:00 WBC (4.8-10.8) K/uL RBC (4.2-5.4) M/uL Hgb (12.0-16.0) g/dL Hct (37-47) % MCV (80-100) fL MCH (25-34) pg MCHC (32-36) g/dL RDW Std Deviation (36.4-46.3) fL RDW Coeff of Hannah (11.5-14.5) % Plt Count (130-400) K/uL MPV (7.4-10.4) fL Immature Gran % (Auto) % Neut % (Auto) % Lymph % (Auto) % Bay % (Auto) % Eos % (Auto) % Baso % (Auto) % Neut # (Auto) (1.4-6.5) K/uL Lymph # (Auto) (1.2-3.4) K/uL [place] # (Auto) (0.11-0.59) K/uL Eos # (Auto) (0-0.5) K/uL Baso # (Auto) (0-0.2) K/uL Immature Gran # (Auto) (0.00-0.02) K/uL Echinocytes PT (9.0-12.0) Seconds INR (0.9-1.1) VBG pH (7.36-7.41) VBG pCO2 (38-50) mmHg VBG pO2 mmHg VBG HCO3 mmol/L VBG O2 Saturation % VBG Base Excess mEq/L Barometric Pressure mm/Hg Sodium 134 L (136-145) mmol/L Potassium 4.2 (3.5-5.1) mmol/L Chloride 105 (98-107) mmol/L Carbon Dioxide 22 (21-32) mmol/L Anion Gap 7 (3-11) BUN 30 H (6-23) mg/dl Creatinine 1.44 H (0.6-1.2) mg/dl Est Cr Clr Drug Dosing 55.2 ml/min Est GFR ( Amer) 51.4 ml/min Est GFR (Non-Af Amer) 44.4 ml/min BUN/Creatinine Ratio 20.8 H (10-20) Glucose 92 (70-99(Fasting)) mg/dl Lactate (0.4-2.0) mmol/L Calcium 8.2 L (8.5-10.1) mg/dl Magnesium (1.7-2.4) mg/dl Total Bilirubin (0.2-1.0) mg/dl AST (13-39) U/L ALT (7-52) U/L Alkaline Phosphatase (34-104) U/L Ammonia 22.0 (18-72) umol/L Troponin I 0.07 H* (0-0.04) ng/ml B-Natriuretic Peptide (0-100) pg/ml Total Protein (6.0-8.3) gm/dl Albumin (3.4-5.0) gm/dl Globulin (2.5-4.0) gm/dl Albumin/Globulin Ratio (0.9-2) Procalcitonin (0-0.5) ng/ml TSH (0.300-4.500) uIu/ml Urine Color Yellow Urine Appearance Clear (Clear) Urine pH 5.0 (4.5-7.5) Ur Specific [place] 1.013 (1.000-1.030) Urine Protein Negative (Negative) Urine Glucose (UA) Negative (Negative) Urine Ketones Negative (Negative) Urine Blood Negative (Negative) Urine Nitrite Negative (Negative) Urine Bilirubin Negative (Negative) Urine Urobilinogen Negative (Negative) Ur Leukocyte Esterase Negative (Negative) SARS-CoV-2, RNA, NAAT (NEGATIVE) Administered Medications Discontinued Medications Al Hydrox/Mg Hydrox/Simethicone (Gi Cocktail Ed Use) 1 dose PO ONE ONE Stop: 07/10/21 19:59 Last Admin: 07/10/21 20:11 Dose: 1 dose Documented by: [id number] Albuterol (Albut/Ipratrop 3mg/0.5mg Neb 3 Ml Vial) 3 ml NEB NOW STA; Protocol Stop: 07/10/21 18:57 Last Admin: 07/10/21 19:20 Dose: 3 ml Documented by: [id number] Aspirin (Aspirin 81 Mg Chew) 324 mg PO NOW STA Stop: 07/10/21 19:59 Last Admin: 07/10/21 20:11 Dose: 324 mg Documented by: [id number] Doxycycline Hyclate (Doxycycline Hyclate 100 Mg Cap) 100 mg PO NOW STA Stop: 07/10/21 18:57 Last Admin: 07/10/21 19:20 Dose: 100 mg Documented by: [id number] Cefepime HCl (Maxipime) 2,000 mg in 20 mls @ 5 mls/min IV NOW STA; Protocol Stop: 07/10/21 19:35 Last Admin: 07/10/21 20:09 Dose: 5 mls/min Documented by: [id number] Magnesium Sulfate/Dextrose (Magnesium Sulfate / D5w) 1 gm in 100 mls @ 200 mls/hr IV Q30M WILMA Stop: 07/10/21 20:44 Last Infusion: 07/10/21 21:34 Dose: 0 mls/hr Documented by: [id number] Admin: 07/10/21 20:38 Dose: 200 mls/hr Documented by: [id number] Infusion: 07/10/21 20:19 Dose: 0 mls/hr Documented by: [id number] Admin: 07/10/21 19:40 Dose: 200 mls/hr Documented by: [id number] Famotidine (Pepcid 20mg Iv Push) 20 mg in 5 mls @ 2.5 mls/min IV NOW STA Stop: 07/10/21 19:57 Last Admin: 07/10/21 20:14 Dose: 2.5 mls/min Documented by: [id number] Sodium Chloride (Nss 1000ml) 500 mls @ 999 mls/hr IV .Q31M ONE Stop: 07/10/21 20:35 Last Infusion: 07/10/21 21:34 Dose: 0 mls/hr Documented by: [id number] Admin: 07/10/21 20:18 Dose: 999 mls/hr Documented by: [id number] Calcium Gluconate () 1,000 mg in 60 mls @ 240 mls/hr IV NOW STA Stop: 07/10/21 21:25 Last Infusion: 07/10/21 22:05 Dose: 0 mls/hr Documented by: [id number] Admin: 07/10/21 21:48 Dose: 240 mls/hr Documented by: [id number] Methylprednisolone (Methylprednisolone 125 Mg/2 Ml Vial) 60 mg IV NOW STA Stop: 07/10/21 19:07 Last Admin: 07/10/21 19:20 Dose: 60 mg Documented by: [id number] Imaging Data Radiologist's Impression: Chest X-Ray 07/10/21 18:54 SINGLE VIEW CHEST CLINICAL HISTORY: Dyspnea. Hypoxia. FINDINGS: An AP, portable, upright chest radiograph is compared to study dated 11/16/2020. The heart is enlarged. There is pulmonary vascular congestion. Multifocal airspace opacities are seen throughout both lungs. No large pleural effusion or pneumothorax is identified. The bony thorax is grossly intact. IMPRESSION: 1. Cardiomegaly with evidence of congestive failure. 2. Airspace opacities are seen throughout both lungs. This could represent pulmonary edema and/or an infectious/inflammatory pneumonitis. Clinical correlation will be required and radiographic follow-up to resolution is recommended. ACT 112: Negative or not required by law. Electronically signed by: Ja Villanueva M.D. 07/10/2021 7:[address] 07/10/21 18:54 CT SCAN OF THE BRAIN WITHOUT IV CONTRAST CLINICAL HISTORY: Generalized weakness. COMPARISON STUDY: CT of the brain dated 09/21/2020. TECHNIQUE: Unenhanced axial CT scan of the brain is performed from the vertex to the skull base. A dose lowering technique was utilized adhering to the principles of ALARA. FINDINGS: Brain parenchyma: The brain parenchyma is normal in appearance. There is no hemorrhage, mass effect, or evidence of acute territorial ischemia by CT criteria. Enriquez-white matter differentiation is preserved. No extra-axial fluid collection is seen. Ventricles, sulci, cisterns: Normal in configuration. Intracranial vasculature: There is mild atherosclerotic calcification of the cavernous carotid arteries. Calvarium: Unremarkable. Sinuses and mastoids: The visualized paranasal sinuses are clear. The mastoid air cells are well pneumatized. Orbits: The bony orbits are grossly intact. IMPRESSION: No acute intracranial abnormality. ACT 112: Negative or not required by law. Electronically signed by: Ja Villanueva M.D. 07/10/2021 8:[address] 07/10/21 19:33 CT SCAN OF THE CHEST WITHOUT IV CONTRAST CLINICAL HISTORY: Dyspnea. Hypoxia. COMPARISON STUDY: Chest x-ray dated 07/10/2021. Prior chest CT scans, most recently dated 11/16/2020. TECHNIQUE: CT scan of the thorax was performed from the thoracic inlet to the upper abdomen. Images are reviewed in the axial, sagittal, and coronal planes. IV contrast was not administered for this examination as per the referring clinician. A dose lowering technique was utilized adhering to the principles of ALARA. The examination is degraded by motion artifact. CT DOSE: 1789.36 mGy.cm FINDINGS: Thyroid: The thyroid gland is mildly enlarged and heterogeneous. Calcifications are noted in the left lobe. Thoracic aorta: There is atherosclerotic calcification of the thoracic aorta, which is normal in caliber and demonstrates standard 3-vessel arch anatomy. Heart: The heart is enlarged and without pericardial effusion. The coronary arteries are densely calcified. Lungs and pleural spaces: Mild emphysematous change is noted. There is diffuse intralobular septal thickening. Patchy/geographic groundglass opacities are seen throughout both lungs. No pleural effusion is identified. The trachea and central airways are clear. Mediastinum: Mediastinal lymphadenopathy similar to previous. Prevascular nodes measure up to 1.5 cm in short axis. Paratracheal nodes measure up to 1.9 cm in short axis, and subcarinal nodes measure up to 2.4 cm in short axis. Sameera: Not well assessed without IV contrast. Axillae: There is no axillary lymphadenopathy. Upper abdomen: Partially visualized upper abdominal viscera is within normal limits. Skeletal structures: The skeletal structures are osteopenic. No lytic or blastic bony lesions are seen. IMPRESSION: 1. Cardiomegaly and emphysema. 2. Mediastinal lymphadenopathy is similar to previous. 3. There is diffuse intralobular septal thickening with geographic groundglass consolidation in a somewhat mosaic distribution. Differential considerations include pulmonary edema, an infectious/inflammatory pneumonitis, pulmonary hemorrhage, and/or hypersensitivity pneumonitis. This is similar in appearance to prior studies, and has waxed and waned over prior chest CT scans. Clinical correlation will be essential. Pulmonology follow-up is recommended. 4. There is no pleural effusion. 5. Additional findings as above. ACT 112: Negative or not required by law. Electronically signed by: Ja Villanueva M.D. 07/10/2021 8:46 PM Discharge Plan Visit Data Chief Complaint: Shortness of Breath/Dyspnea ED Provider: Kojo Sauceda Discharge Problem: Respiratory failure, Multifocal pneumonia, Acute exacerbation of chronic obstructive pulmonary disease, Cellulitis of leg, right, Elevated troponin I level Forms Stand Alone Forms: [facility] Prescriptions Prescriptions: No Action cyclobenzaprine 10 mg tablet 10 mg PO BID RF: 0 atorvastatin 80 mg tablet 80 mg PO DAILY RF: 0 torsemide 20 mg tablet 20 mg PO BID RF: 0 albuterol sulfate 2.5 mg /3 mL (0.083 %) solution for nebulization 2.5 mg inhalation Q4 PRN (Reason: WHEEZE/COUGH) RF: 0 trazodone 50 mg tablet 25 - 50 mg PO HS RF: 0 polyethylene glycol 3350 [Miralax] 17 gram Powder In Packet 17 g PO DAILY PRN (Reason: Constipation) RF: 0 fluconazole 150 mg Tablet 150 mg PO .ONE TIME DOSE RF: 0 levetiracetam 500 mg tablet 500 mg PO BID RF: 0 glipizide 10 mg Tablet 10 mg PO DAILY RF: 0 topiramate 25 mg tablet 25 mg PO BID RF: 0 clopidogrel 75 mg tablet 75 mg PO DAILY RF: 0 spironolactone 25 mg tablet 25 mg PO DAILY RF: 0 meloxicam 7.5 mg tablet 7.5 mg PO DAILY RF: 0 potassium chloride [Klor-Con M20] 20 mEq tablet,ER particles/crystals 20 meq PO DAILY RF: 0 benzonatate 100 mg capsule 100 mg PO TID PRN (Reason: Cough) RF: 0 metformin 1,000 mg tablet 1,000 mg PO BID RF: 0 lisinopril 5 mg tablet 2.5 mg PO DAILY RF: 0 metoprolol succinate 25 mg tablet extended release 24 hr 25 mg PO DAILY RF: 0 albuterol sulfate 90 mcg/actuation HFA aerosol inhaler 2 puff INHALATION Q4 PRN (Reason: Shortness Of Breath Or Wheezing) RF: 0 medroxyprogesterone 150 mg/mL suspension 150 mg IM .Q3MO RF: 0 doxycycline hyclate 100 mg Tablet 100 mg PO BID RF: 0 loratadine 10 mg Tablet 10 mg PO DAILY RF: 0 buspirone 15 mg Tablet 15 mg PO BID RF: 0 escitalopram oxalate 20 mg tablet 20 mg PO DAILY RF: 0 buprenorphine-naloxone 8-2 mg tablet, sublingual 0.5 tab SUBLINGUAL TID RF: 0 omeprazole 20 mg Tablet,Delayed Release (Dr/Ec) 20 mg PO DAILY RF: 0 Referrals Referrals: Irvin Iverson MD [Primary Care Provider] -
[2021-07-10 19:10] LABS: Hematocrit (blood only) 33.1 % (37-47); Hemoglobin 10.8 g/dL (12.0-16.0); Mean Corpuscular Hemoglobin 27.5 pg (25-34); Mean Corpuscular Hgb Conc 32.6 g/dL (32-36); Mean Corpuscular Volume 84.2 fL (80-100); Mean Platelet Volume 10.1 fL (7.4-10.4); Platelet Count 296 K/uL (130-400); RDW Coefficient of Variation 17.4 % (11.5-14.5); RDW Standard Deviation 53.9 fL (36.4-46.3); Red Blood Count 3.93 M/uL (4.2-5.4); White Blood Count 26.09 K/uL (4.8-10.8)
--- NOTE | 2021-07-10 19:13 | XRay Report ---
SINGLE VIEW CHEST CLINICAL HISTORY: Dyspnea. Hypoxia. FINDINGS: An AP, portable, upright chest radiograph is compared to study dated 11/16/2020. The heart i s enlarged. There is pulmonary vascular congestion. Multifocal airspace opacities are seen throughout both lungs. No large pleural effusion or pneumothorax is identified. The bony thorax is grossly inta ct. IMPRESSION: 1. Cardiomegaly with evidence of congestive failure. 2. Airspace opacities are seen throughout both lungs. This could represent pulmonary edema and/or an infectious/inflammatory pneumonitis. Clinical correlation will be required and radiographic follow-up to resolution is recommended. ACT 112: Negative or not required by law. Electronically signed by: Ja Villanueva M.D. 07/10/2021 7:12 PM
[2021-07-10 19:19] LABS: INR 1.2 (0.9-1.1); Prothrombin Time 12.4 Seconds (9.0-12.0)
[2021-07-10 19:31] LABS: Albumin Globulin Ratio 1.3 (0.9-2); Albumin Level 3.6 gm/dl (3.4-5.0); BUN Creatinine Ratio 18.8 (10-20); Bilirubin,Total 0.7 mg/dl (0.2-1.0); Calcium 7.5 mg/dl (8.5-10.1); Creatinine Clr Calc Pharmacy 48.2 ml/min; Est GFR (African American) 43.6 ml/min; Est GFR (Non-African American) 37.6 ml/min; Globulin 2.8 gm/dl (2.5-4.0); Magnesium 1.4 mg/dl (1.7-2.4); Potassium 3.8 mmol/L (3.5-5.1); Total Protein 6.4 gm/dl (6.0-8.3)
[2021-07-10] MEDS ORDERED: CEFEPIME 2,000 MG/20 ML VIAL IV STA (19:32)
[2021-07-10 19:36] LABS: Basophils # (auto) 0.04 K/uL (0-0.2); Basophils % (auto) 0.2 %; Echinocytes 1+; Eosinophils # (auto) 0.14 K/uL (0-0.5); Eosinophils % (auto) 0.5 %; Immature Granulocytes # (auto) 0.11 K/uL (0.00-0.02); Immature Granulocytes % (auto) 0.4 %; Lymphocytes # (auto) 2.94 K/uL (1.2-3.4); Lymphocytes % (auto) 11.3 %; Monocytes # (auto) 1.04 K/uL (0.11-0.59); Neutrophils # (auto) 21.82 K/uL (1.4-6.5); Neutrophils % (auto) 83.6 %; Troponin I 0.08 ng/ml (0-0.04)
[2021-07-10] MEDS: MAGNESIUM SULFATE / D5W 1 GM/100 ML BAG IV SCH ×2 (19:40→20:38)
[2021-07-10] MEDS ORDERED: FAMOTIDINE 20MG IV PUSH 20 MG/5 ML SYR IV STA (19:56)
[2021-07-10] MEDS ORDERED: ASPIRIN 81 MG CHEW PO STA (19:58)
[2021-07-10] MEDS ORDERED: GI COCKTAIL ED USE PO ONE (19:58)
[2021-07-10] MEDS ORDERED: SODIUM CHLORIDE 0.9% 1000ML 500 ML IV ONE (20:05)
[2021-07-10 20:22] LABS: Base Excess VBG -1.6 mEq/L; Oxygen Saturation VBG 75.5 %; pH VBG 7.43 (7.36-7.41)
--- NOTE | 2021-07-10 20:40 | CT Scan Report ---
CT SCAN OF THE BRAIN WITHOUT IV CONTRAST CLINICAL HISTORY: Generalized weakness. COMPARISON STUDY: CT of the brain dated 09/21/2020. TECHNIQUE: Unenhanced axial CT scan of the brain is performed from the vertex to the skull base. A d ose lowering technique was utilized adhering to the principles of ALARA. FINDINGS: Brain parenchyma: The brain parenchyma is normal in appearance. There is no hemorrhage, mass effect, or evidence of acute territorial ischemia by CT criteria. Enriquez-white matter differentiation is preser dylon. No extra-axial fluid collection is seen. Ventricles, sulci, cisterns: Normal in configuration. Intracranial vasculature: There is mild atherosclerotic calcification of the cavernous carotid arteri es. Calvarium: Unremarkable. Sinuses and mastoids: The visualized paranasal sinuses are clear. The mastoid air cells are well pneu matized. Orbits: The bony orbits are grossly intact. IMPRESSION: No acute intracranial abnormality. ACT 112: Negative or not required by law. Electronically signed by: Ja Villanueva M.D. 07/10/2021 8:37 PM
--- NOTE | 2021-07-10 20:48 | CT Scan Report ---
CT SCAN OF THE CHEST WITHOUT IV CONTRAST CLINICAL HISTORY: Dyspnea. Hypoxia. COMPARISON STUDY: Chest x-ray dated 07/10/2021. Prior chest CT scans, most recently dated 11/16/2020. TECHNIQUE: CT scan of the thorax was performed from the thoracic inlet to the upper abdomen. Images are reviewed in the axial, sagittal, and coronal planes. IV contrast was not administered for this ex amination as per the referring clinician. A dose lowering technique [facility] The examination is degraded by motion artifact. CT DOSE: 1789.36 mGy.cm FINDINGS: Thyroid: The thyroid gland is mildly enlarged and heterogeneous. Calcifications are noted in the left lobe. Thoracic aorta: There is atherosclerotic calcification of the thoracic aorta, which is normal in gum[place] elli and demonstrates standard 3-vessel arch anatomy. Heart: The heart is enlarged and without pericardial effusion. The coronary arteries are densely calc ified. Lungs and pleural spaces: Mild emphysematous change is noted. There is diffuse intralobular septal th ickening. Patchy/geographic groundglass opacities are seen throughout both lungs. No pleural effusion is identified. The trachea and central airways are clear. Mediastinum: Mediastinal lymphadenopathy similar to previous. Prevascular nodes measure up to 1.5 cm in short axis. Paratracheal nodes measure up to 1.9 cm in short axis, and subcarinal nodes measure up to 2.4 cm in short axis. Sameera: Not well assessed without IV contrast. Axillae: There is no axillary lymphadenopathy. Upper abdomen: Partially visualized upper abdominal viscera is within normal limits. Skeletal structures: The skeletal structures are osteopenic. No lytic or blastic bony lesions are see n. IMPRESSION: 1. Cardiomegaly and emphysema. 2. Mediastinal lymphadenopathy is similar to previous. 3. There is diffuse intralobular septal thickening with geographic groundglass consolidation in a chiquis ewhat mosaic distribution. Differential considerations include pulmonary edema, an infectious/inflamm atory pneumonitis, pulmonary hemorrhage, and/or hypersensitivity pneumonitis. This is similar in appe arance to prior studies, and has waxed and waned over prior chest CT scans. Clinical correlation will be essential. Pulmonology follow-up is recommended. 4. There is no pleural effusion. 5. Additional findings as above. ACT 112: Negative or not required by law. Electronically signed by: Ja Villanueva M.D. 07/10/2021 8:46 PM
[2021-07-10] MEDS ORDERED: CALCIUM GLUCONATE 1,000 MG/60 ML BAG IV STA (21:11)
[2021-07-10 21:46] LABS: BUN Creatinine Ratio 20.8 (10-20); Calcium 8.2 mg/dl (8.5-10.1); Creatinine Clr Calc Pharmacy 55.2 ml/min; Est GFR (African American) 51.4 ml/min; Est GFR (Non-African American) 44.4 ml/min; Potassium 4.2 mmol/L (3.5-5.1)
[2021-07-10 21:50] LABS: Troponin I 0.07 ng/ml (0-0.04)
[2021-07-10 22:12] LABS: Appearance Urine Clear (Clear); Bilirubin Urine Negative (Negative); Blood Urine Negative (Negative); Color Urine Yellow; Glucose Urine UA Negative (Negative); Ketones Urine Negative (Negative); Leukocyte Esterase Urine Negative (Negative); Nitrite Urine Negative (Negative); Protein Urine Negative (Negative); Specific Gravity Urine 1.013 (1.000-1.030); Urobilinogen Urine Negative (Negative)
--- NOTE | 2021-07-10 22:17 | History & Physical Report ---
Date of Service July 10, 2021 Assessment & Plan (1) Respiratory failure: Plan: Multifactorial: Asthma exacerbation secondary to CAP Decompensated heart failure , hx diastolic dysfunction, rule out progression of aortic stenosis Severe sepsis SIRS plus ARF plus hypoxemia secondary to pneumonia CAD status post stent hypertension, BP currently borderline hyperlipidemia on statin Rx hx HCV, patient has not been treated, patient follows with [facility] DM2 on oral medications, reasonable control as of recent hemoglobin A1c of 7.1, 2020 Seizure disorder on Keppra Past history DVT status post anticoagulation Seizure medication on Keppra chronic anemia, hemoglobin at baseline chronic pain on Suboxone hx polysubstance abuse ongoing tobacco abuse PCU Continue BiPAP CS, Cefepime doxycycline Solu-Medrol, nebs RTC for asthma exacerbation Pulmonary consult if without improvement Lasix albumin for CHF Follow renal function Strict I/Os, daily weights, CHF education Update TTE, cardiology consult Re: Decompensated heart failure Appropriate to hold home BP meds for now given borderline BP Basal insulin, ISS BG goal 1 10-1 40, update hemoglobin A1c DVT prophylaxis with Heparin subcu Full code Total critical care time was 45 minutes. Text document was generated using [employer] voice recognition software. It may contain grammatical or spelling errors. Kindly contact undersigned for clarification of any documentation item in question. History of Present Illness Chief Complaint: Worsening shortness of breath Primary Care Provider: Irvin Iverson MD History obtained from patient and records. History somewhat limited from patient secondary to lethargic state. Medical history significant for chronic diastolic heart failure (EF 60 to 65%, TTE 2020 ), CAD status post stent, moderate to severe aortic stenosis on TTE 2020, hypertension, hyperlipidemia, hx HCV, DM2 on oral medications, asthma, ongoing tobacco abuse, past history DVT status post oral anticoagulation, seizure disorder, mood disorder, chronic anemia (baseline hemoglobin 9-10), chronic pain on Suboxone, hx polysubstance abuse, ongoing tobacco abuse Last confinement October 2020 for sepsis secondary to respiratory failure secondary to community-acquired pneumonia, gram-negative gale bacteremia. 1 week history of congestion, junky cough symptoms worsening shortness of breath, weight gain and fluid retention as per patient. Patient not sure about sick contacts. Denies aspiration. Covid vaccine 1 dose. Patient feeling more weak as per boyfriend. Noted to be more sleepy. Patient called PCPs office. ER evaluation recommended if with worsening. EMS noted patient to be hypoxemic at home. At the ER, patient received Solu-Medrol, cefepime, doxycycline, and neb treatment at the ER. MEDICAL HISTORY: SURGERIES INCLUDE: Cholecystectomy, Tonsillectomy, Dental procedure, Wrist abscess drainage, back surgery, thigh/knee surgery FAMILY HISTORY: HTN, DM, heart disease, Crohn's disease PERSONAL/SOCIAL HISTORY: Half pack daily, no EtOH intake, unemployed, lives with boyfriend Allergies Allergy/AdvReac Type Severity Reaction Status Date / Time lidocaine Allergy Intermediate HIVES Verified 07/10/21 21:33 procaine Allergy Intermediate HIVES Verified 07/10/21 21:33 Penicillins Allergy Mild HAD NO Verified 07/10/21 21:33 PROBLEM WITH ZOSYN strawberry Allergy Mild HIVES Verified 07/10/21 21:33 cephalexin AdvReac Intermediate YEAST Verified 07/10/21 21:33 INFECTIONS tramadol AdvReac Intermediate SEIZURES Verified 07/10/21 21:33 azithromycin AdvReac Mild STOMACH Verified 07/10/21 21:33 PAIN Home Medications Medication Instructions Recorded Confirmed Type albuterol sulfate 2.5 mg INHALATION Q4 PRN 07/10/21 07/10/21 History albuterol sulfate 90 mcg/actuation 2 puff INHALATION Q4 PRN 07/10/21 07/10/21 History aerosol inhaler atorvastatin 80 mg tablet 80 mg PO DAILY 07/10/21 07/10/21 History benzonatate 100 mg capsule 100 mg PO TID PRN 07/10/21 07/10/21 History buprenorphine 8 mg-naloxone 2 mg 0.5 tab SUBLINGUAL TID 07/10/21 07/10/21 History sublingual tablet buspirone 15 mg tablet 15 mg PO BID 07/10/21 07/10/21 History clopidogrel 75 mg tablet 75 mg PO DAILY 07/10/21 07/10/21 History cyclobenzaprine 10 mg tablet 10 mg PO BID 07/10/21 07/10/21 History doxycycline hyclate 100 mg tablet 100 mg PO BID 07/10/21 07/10/21 History escitalopram oxalate 20 mg tablet 20 mg PO DAILY 07/10/21 07/10/21 History fluconazole 150 mg tablet 150 mg PO .ONE TIME DOSE 07/10/21 07/10/21 History glipizide 10 mg tablet 10 mg PO DAILY 07/10/21 07/10/21 History levetiracetam 500 mg tablet 500 mg PO BID 07/10/21 07/10/21 History lisinopril 5 mg tablet 2.5 mg PO DAILY 07/10/21 07/10/21 History loratadine 10 mg tablet 10 mg PO DAILY 07/10/21 07/10/21 History medroxyprogesterone 150 mg/mL 150 mg IM .Q3MO 07/10/21 07/10/21 History intramuscular suspension meloxicam 7.5 mg tablet 7.5 mg PO DAILY 07/10/21 07/10/21 History metformin 1,000 mg tablet 1,000 mg PO BID 07/10/21 07/10/21 History metoprolol succinate 25 mg 25 mg PO DAILY 07/10/21 07/10/21 History tablet,extended release 24 hr omeprazole 20 mg tablet,delayed 20 mg PO DAILY 07/10/21 07/10/21 History release polyethylene glycol 3350 17 gram 17 g PO DAILY PRN 07/10/21 07/10/21 History oral powder packet (Miralax) potassium chloride 20 mEq 20 meq PO DAILY 07/10/21 07/10/21 History tablet,extended release(part/cryst) (Klor-Con M) spironolactone 25 mg tablet 25 mg PO DAILY 07/10/21 07/10/21 History topiramate 25 mg tablet 25 mg PO BID 07/10/21 07/10/21 History torsemide 20 mg tablet 20 mg PO BID 07/10/21 07/10/21 History trazodone 50 mg tablet 25 - 50 mg PO HS 07/10/21 07/10/21 History Past Med/Surg History Medical History Acute electrocardiogram changes Aortic regurgitation Aortic stenosis Asthma Atypical chest pain Cannabis abuse Cellulitis of both lower extremities Chronic diastolic CHF (congestive heart failure) Coronary artery disease Depression Diabetes mellitus, type 2 Encounter for smoking cessation counseling GERD (gastroesophageal reflux disease) Gram negative sepsis Hepatitis C "Antibiotic screen positive, quantitative RNA positive 08/30/17" Hepatosplenomegaly History of drug abuse History of DVT (deep vein thrombosis) History of renal calculi Hypertension Hypocalcemia Opiate abuse, continuous Overdose Seizure disorder Surgical History History of cardiac cath 2017- 1 ROJAS to ramus, 2 ROJAS to L circumflex. 40-50% plaque to LAD 2018- distal disease (80%) within PDA History of carpal tunnel surgery History of lumbar spinal fusion Hx of tonsillectomy Status post cholecystectomy Family History Other Diabetes Heart disease Hypertension Kidney stones Seizures Social History Smoking Status: Heavy tobacco smoker Tobacco Type: Cigarettes Cigarettes Per Day: 10; Number of Years Since Quit: 31; Second Hand Exposure: Yes; Do You Dip or Chew Tobacco: No; Hx Alcohol Use: Yes Hx Substance Use: Yes (3 years drug free) Non-Prescribed Medications: Heroin, IV Drugs and Methamphetamines Last Used Substance: Unknown Last Used Substance Other:: 1.5 YEARS AGO Substance Use Type Other:: 1.5 years ago Preferred Language: Russian Communication Ability: Effective Visual Impairment: No Limitations Hearing Ability: Normal Internet Marketing Consultant Required: No Beliefs That Will Affect Care: None marital status: Single Current Living Situation: Significant Other Current Living Situation Comment: LIVES WITH ROOMMATES Feels Safe at Home: Yes Safety Concerns: Feels Safe At This Time Assistive Devices: None Review of Systems Review of Systems: Somewhat limited due to lethargic state Physical Exam Physical Exam: GENERAL: uncomfortable, lethargic, obese, respiratory distress SKIN: Pallor , warm HEENT: Pale palpebral conjunctivae, no ptosis, dry buccal mucosa, BiPAP in place NECK : Supple, short neck, no tenderness CHEST : Decreased breath sounds, occasional expiratory wheezes, no tenderness HEART : Tachycardic, systolic murmur ABDOMEN: distention, nontender EXTREMITIES : Bilateral LE swelling, no LE tenderness, no other conspicuous deformities noted NEUROLOGIC : Lethargic, no facial asymmetry, no other gross focality Results & Data Results & Data ([facility]) Vital Signs (Past 12 Hours) Vital Signs Temp Pulse Resp BP Pulse Ox 07/10/21 22:02 126 H 26 H 92 07/10/21 22:01 127 H 36 H 125/85 96 07/10/21 21:30 124 H 31 H 116/73 91 07/10/21 21:07 123 H 35 H 92 07/10/21 21:00 103/70 07/10/21 20:42 121 H 36 H 109/66 07/10/21 19:40 124 H 20 07/10/21 19:30 123 H 20 107/30 L 93 07/10/21 19:20 121 H 20 07/10/21 19:10 127 H 20 88 L 07/10/21 19:00 122 H 20 104/57 L 88 L 07/10/21 18:59 74 L 07/10/21 18:50 119 H 20 91 07/10/21 18:48 36.9 C 124 H 26 H 99/58 L 74 L 07/10/21 18:40 121 H 20 88 L Laboratory Results Laboratory Results WBC 26.09 K/uL (4.8-10.8) H 07/10/21 19:00 RBC 3.93 M/uL (4.2-5.4) L 07/10/21 19:00 Hgb 10.8 g/dL (12.0-16.0) L 07/10/21 19:00 Hct 33.1 % (37-47) L 07/10/21 19:00 MCV 84.2 fL (80-100) 07/10/21 19:00 MCH 27.5 pg (25-34) 07/10/21 19:00 MCHC 32.6 g/dL (32-36) 07/10/21 19:00 RDW Std Deviation 53.9 fL (36.4-46.3) H 07/10/21 19:00 RDW Coeff of Hannah 17.4 % (11.5-14.5) H 07/10/21 19:00 Plt Count 296 K/uL (130-400) 07/10/21 19:00 MPV 10.1 fL (7.4-10.4) 07/10/21 19:00 Immature Gran % (Auto) 0.4 % 07/10/21 19:00 Neut % (Auto) 83.6 % 07/10/21 19:00 Lymph % (Auto) 11.3 % 07/10/21 19:00 [place] % (Auto) 4.0 % 07/10/21 19:00 Eos % (Auto) 0.5 % 07/10/21 19:00 Baso % (Auto) 0.2 % 07/10/21 19:00 Neut # (Auto) 21.82 K/uL (1.4-6.5) H 07/10/21 19:00 Lymph # (Auto) 2.94 K/uL (1.2-3.4) 07/10/21 19:00 [place] # (Auto) 1.04 K/uL (0.11-0.59) H 07/10/21 19:00 Eos # (Auto) 0.14 K/uL (0-0.5) 07/10/21 19:00 Baso # (Auto) 0.04 K/uL (0-0.2) 07/10/21 19:00 Immature Gran # (Auto) 0.11 K/uL (0.00-0.02) H 07/10/21 19:00 Echinocytes 1+ 07/10/21 19:00 PT 12.4 Seconds (9.0-12.0) H 07/10/21 19:00 INR 1.2 (0.9-1.1) H 07/10/21 19:00 VBG pH 7.43 (7.36-7.41) H 07/10/21 19:59 VBG pCO2 34 mmHg (38-50) L 07/10/21 19:59 VBG pO2 42 mmHg 07/10/21 19:59 VBG HCO3 22 mmol/L 07/10/21 19:59 VBG O2 Saturation 75.5 % 07/10/21 19:59 VBG Base Excess -1.6 mEq/L 07/10/21 19:59 Barometric Pressure 738.1 mm/Hg 07/10/21 19:59 Sodium 134 mmol/L (136-145) L 07/10/21 21:20 Potassium 4.2 mmol/L (3.5-5.1) 07/10/21 21:20 Chloride 105 mmol/L (98-107) 07/10/21 21:20 Carbon Dioxide 22 mmol/L (21-32) 07/10/21 21:20 Anion Gap 7 (3-11) 07/10/21 21:20 BUN 30 mg/dl (6-23) H 07/10/21 21:20 Creatinine 1.44 mg/dl (0.6-1.2) H 07/10/21 21:20 Est Cr Clr Drug Dosing 55.2 ml/min 07/10/21 21:20 Est GFR ( Amer) 51.4 ml/min 07/10/21 21:20 Est GFR (Non-Af Amer) 44.4 ml/min 07/10/21 21:20 BUN/Creatinine Ratio 20.8 (10-20) H 07/10/21 21:20 Glucose 92 mg/dl (70-99(Fasting)) 07/10/21 21:20 Lactate 1.7 mmol/L (0.4-2.0) 07/10/21 19:35 Calcium 8.2 mg/dl (8.5-10.1) L 07/10/21 21:20 Magnesium 1.4 mg/dl (1.7-2.4) L 07/10/21 19:00 Total Bilirubin 0.7 mg/dl (0.2-1.0) 07/10/21 19:00 AST 35 U/L (13-39) 07/10/21 19:00 ALT 24 U/L (7-52) 07/10/21 19:00 Alkaline Phosphatase 77 U/L (34-104) 07/10/21 19:00 Ammonia 22.0 umol/L (18-72) 07/10/21 21:20 Troponin I 0.07 ng/ml (0-0.04) H* 07/10/21 21:20 B-Natriuretic Peptide 200 pg/ml (0-100) H 07/10/21 19:59 Total Protein 6.4 gm/dl (6.0-8.3) 07/10/21 19:00 Albumin 3.6 gm/dl (3.4-5.0) 07/10/21 19:00 Globulin 2.8 gm/dl (2.5-4.0) 07/10/21 19:00 Albumin/Globulin Ratio 1.3 (0.9-2) 07/10/21 19:00 Procalcitonin 0.71 ng/ml (0-0.5) H 07/10/21 19:00 TSH 0.641 uIu/ml (0.300-4.500) 07/10/21 19:00 Urine Color Yellow 07/10/21 22:00 Urine Appearance Clear (Clear) 07/10/21 22:00 Urine pH 5.0 (4.5-7.5) 07/10/21 22:00 Ur Specific [place] 1.013 (1.000-1.030) 07/10/21 22:00 Urine Protein Negative (Negative) 07/10/21 22:00 Urine Glucose (UA) Negative (Negative) 07/10/21 22:00 Urine Ketones Negative (Negative) 07/10/21 22:00 Urine Blood Negative (Negative) 07/10/21 22:00 Urine Nitrite Negative (Negative) 07/10/21 22:00 Urine Bilirubin Negative (Negative) 07/10/21 22:00 Urine Urobilinogen Negative (Negative) 07/10/21 22:00 Ur Leukocyte Esterase Negative (Negative) 07/10/21 22:00 SARS-CoV-2, RNA, NAAT NEGATIVE (NEGATIVE) 07/10/21 19:19 Impressions Chest X-Ray 07/10/21 18:54 SINGLE VIEW CHEST CLINICAL HISTORY: Dyspnea. Hypoxia. FINDINGS: An AP, portable, upright chest radiograph is compared to study dated 11/16/2020. The heart is enlarged. There is pulmonary vascular congestion. Multifocal airspace opacities are seen throughout both lungs. No large pleural effusion or pneumothorax is identified. The bony thorax is grossly intact. IMPRESSION: 1. Cardiomegaly with evidence of congestive failure. 2. Airspace opacities are seen throughout both lungs. This could represent pulmonary edema and/or an infectious/inflammatory pneumonitis. Clinical correlation will be required and radiographic follow-up to resolution is recommended. ACT 112: Negative or not required by law. Electronically signed by: Ja Villanueva M.D. 07/10/2021 7:[address] 07/10/21 18:54 CT SCAN OF THE BRAIN WITHOUT IV CONTRAST CLINICAL HISTORY: Generalized weakness. COMPARISON STUDY: CT of the brain dated 09/21/2020. TECHNIQUE: Unenhanced axial CT scan of the brain is performed from the vertex to the skull base. A dose lowering technique was utilized adhering to the principles of ALARA. FINDINGS: Brain parenchyma: The brain parenchyma is normal in appearance. There is no hemorrhage, mass effect, or evidence of acute territorial ischemia by CT criteria. Enriquez-white matter differentiation is preserved. No extra-axial fluid collection is seen. Ventricles, sulci, cisterns: Normal in configuration. Intracranial vasculature: There is mild atherosclerotic calcification of the cavernous carotid arteries. Calvarium: Unremarkable. Sinuses and mastoids: The visualized paranasal sinuses are clear. The mastoid air cells are well pneumatized. Orbits: The bony orbits are grossly intact. IMPRESSION: No acute intracranial abnormality. ACT 112: Negative or not required by law. Electronically signed by: Ja Villanueva M.D. 07/10/2021 8:[address] 07/10/21 19:33 CT SCAN OF THE CHEST WITHOUT IV CONTRAST CLINICAL HISTORY: Dyspnea. Hypoxia. COMPARISON STUDY: Chest x-ray dated 07/10/2021. Prior chest CT scans, most recently dated 11/16/2020. TECHNIQUE: CT scan of the thorax was performed from the thoracic inlet to the upper abdomen. Images are reviewed in the axial, sagittal, and coronal planes. IV contrast was not administered for this examination as per the referring clinician. A dose lowering technique was utilized adhering to the principles of ALARA. The examination is degraded by motion artifact. CT DOSE: 1789.36 mGy.cm FINDINGS: Thyroid: The thyroid gland is mildly enlarged and heterogeneous. Calcifications are noted in the left lobe. Thoracic aorta: There is atherosclerotic calcification of the thoracic aorta, which is normal in caliber and demonstrates standard 3-vessel arch anatomy. Heart: The heart is enlarged and without pericardial effusion. The coronary arteries are densely calcified. Lungs and pleural spaces: Mild emphysematous change is noted. There is diffuse intralobular septal thickening. Patchy/geographic groundglass opacities are seen throughout both lungs. No pleural effusion is identified. The trachea and central airways are clear. Mediastinum: Mediastinal lymphadenopathy similar to previous. Prevascular nodes measure up to 1.5 cm in short axis. Paratracheal nodes measure up to 1.9 cm in short axis, and subcarinal nodes measure up to 2.4 cm in short axis. Sameera: Not well assessed without IV contrast. Axillae: There is no axillary lymphadenopathy. Upper abdomen: Partially visualized upper abdominal viscera is within normal limits. Skeletal structures: The skeletal structures are osteopenic. No lytic or blastic bony lesions are seen. IMPRESSION: 1. Cardiomegaly and emphysema. 2. Mediastinal lymphadenopathy is similar to previous. 3. There is diffuse intralobular septal thickening with geographic groundglass consolidation in a somewhat mosaic distribution. Differential considerations include pulmonary edema, an infectious/inflammatory pneumonitis, pulmonary hemorrhage, and/or hypersensitivity pneumonitis. This is similar in appearance to prior studies, and has waxed and waned over prior chest CT scans. Clinical correlation will be essential. Pulmonology follow-up is recommended. 4. There is no pleural effusion. 5. Additional findings as above. ACT 112: Negative or not required by law. Electronically signed by: Ja Villanueva M.D. 07/10/2021 8:46 PM Diagnostic Findings EKG as per my interpretation:Rate 120, sinus tachycardia, normal axis, T wave abnormalities inferior leads
[2021-07-10] MEDS ORDERED: ALBUMIN 25% 100 mL 25 GM/100 ML VIAL IV ONE (22:53)
[2021-07-10] MEDS ORDERED: CARBOHYDRATES FOR HYPOGLYCEMIA PO PRN (23:58)
[2021-07-10] MEDS ORDERED: PROMETHAZINE HCL 12.5 MG in SODIUM CHLORIDE 0.9% 50 ML IV PRN (23:58)
[2021-07-10] MEDS ORDERED: GLUCOSE 40% GEL 15 GM TUBE PO PRN (23:58)
[2021-07-10] MEDS ORDERED: GLUCOSE 10 TABS/TUBE PO PRN (23:58)
[2021-07-10] MEDS ORDERED: MAGNESIUM SULFATE / D5W 1 GM/100 ML BAG IV ONE (23:58)
[2021-07-10] MEDS ORDERED: POLYETHYLENE (MIRALAX) 17 GM PACK PO PRN (23:58)
[2021-07-10] MEDS ORDERED: GLUCAGON FOR INJ 1 MG VIAL SQ PRN (23:58)
[2021-07-10] MEDS ORDERED: DEXTROSE 50% 50 ML SYRINGE IV PRN (23:58)
[2021-07-10] MEDS ORDERED: ACETAMINOPHEN 325 MG TAB PO PRN (23:58)
[2021-07-11] MEDS: IPRATROPIUM BROMIDE NEB SOLN 0.02% 2.5 ML VIAL INH SCH ×4 (00:29→19:06)
[2021-07-11] MEDS: LEVALBUTEROL 1.25MG/0.5ML NEB INH SCH ×4 (00:29→19:06)
[2021-07-11] MEDS: INSULIN ASPART PER UNIT SC SCH ×5 (00:33→23:50)
[2021-07-11] MEDS ORDERED: XOPENEX/ATROVENT 1.25mg/0.5MG NEB COMBO NEB SCH (01:00)
[2021-07-11] MEDS: INSULIN GLARGINE SOLOSTAR 100 UNITS/ML 3 ML PEN SC SCH (04:14)
[2021-07-11] MEDS ORDERED: METOPROLOL TARTRATE 1 MG/ML VIAL IV STA (04:56)
[2021-07-11] MEDS ORDERED: ALBUMIN 25% 100 mL 25 GM/100 ML VIAL IV ONE (04:57)
[2021-07-11] MEDS ORDERED: FUROSEMIDE INJ 20 MG/2 ML VIAL IV ONE (04:57)
[2021-07-11 05:53] LABS: Hematocrit (blood only) 34.1 % (37-47); Hemoglobin 11.4 g/dL (12.0-16.0); Mean Corpuscular Hemoglobin 27.9 pg (25-34); Mean Corpuscular Hgb Conc 33.4 g/dL (32-36); Mean Corpuscular Volume 83.6 fL (80-100); Mean Platelet Volume 9.8 fL (7.4-10.4); Platelet Count 296 K/uL (130-400); RDW Coefficient of Variation 17.4 % (11.5-14.5); RDW Standard Deviation 53.7 fL (36.4-46.3); Red Blood Count 4.08 M/uL (4.2-5.4); White Blood Count 29.67 K/uL (4.8-10.8)
[2021-07-11 06:13] LABS: Basophils # (auto) 0.03 K/uL (0-0.2); Basophils % (auto) 0.1 %; Echinocytes 1+; Immature Granulocytes # (auto) 0.09 K/uL (0.00-0.02); Immature Granulocytes % (auto) 0.3 %; Lymphocytes # (auto) 0.77 K/uL (1.2-3.4); Lymphocytes % (auto) 2.6 %; Monocytes # (auto) 0.53 K/uL (0.11-0.59); Monocytes % (auto) 1.8 %; Neutrophils # (auto) 28.25 K/uL (1.4-6.5); Neutrophils % (auto) 95.2 %
[2021-07-11 06:21] LABS: BUN Creatinine Ratio 21.6 (10-20); Calcium 8.7 mg/dl (8.5-10.1); Creatinine Clr Calc Pharmacy 68.6 ml/min; Est GFR (African American) 66.8 ml/min; Est GFR (Non-African American) 57.6 ml/min; Magnesium 2.5 mg/dl (1.7-2.4); Potassium 4.7 mmol/L (3.5-5.1)
[2021-07-11] MEDS: CEFEPIME 2,000 MG in SYRINGE 0 ML IV SCH ×3 (06:21→20:48)
[2021-07-11] MEDS: HEPARIN SOD 5,000 UNIT/0.5 ML VIAL SQ SCH ×3 (06:21→20:49)
[2021-07-11 08:07] LABS: Estimated Average Glucose 157 mg/dl; Hemoglobin A1C 7.1 % (4.5-5.6)
[2021-07-11] MEDS ORDERED: methylPREDNISolone 40 MG in SYRINGE 0 ML IV SCH (09:00)
[2021-07-11] MEDS ORDERED: INSULIN GLARGINE SOLOSTAR 100 UNITS/ML 3 ML PEN SC SCH (09:00)
[2021-07-11 09:12] LABS: Base Excess ABG -1.1 mEq/L (-9-1.8); HCO3 ABG 23 mmol/L (19-24); Oxygen Saturation ABG 92.8 % (90-95); PCO2 ABG 37 mmHg (35-46); PO2 ABG 65 mmHg (80-95); pH ABG 7.42 (7.35-7.45)
--- NOTE | 2021-07-11 09:42 | Ultrasound Report ---
US venous doppler LE RT HISTORY: 41 years-old Female swelling acute pain and swelling of the lower legs COMPARISON: 09/21/2020 TECHNIQUE: Multiple real-time sonographic images of the right lower extremity deep venous structures were obtained assessing grayscale appearance, color and spectral flow. FINDINGS: Normal flow, compressibility, phasicity and augmentation. IMPRESSION: No sonographic evidence of deep venous thrombosis. ACT 112: Negative or not required by law. The above report was generated using voice recognition software. It may contain grammatical, syntax o r spelling errors. Electronically signed by: Federico Eli M.D. 07/11/2021 9:40 AM
--- NOTE | 2021-07-11 09:42 | XRay Report ---
SINGLE VIEW CHEST CLINICAL HISTORY: Pneumonia. FINDINGS: 2 AP, portable, upright chest radiographs are compared to chest x-ray and chest CT dated . The heart is enlarged. There is pulmonary vascular congestion. Multifocal airspace opacities are again seen throughout both lungs. This is similar to yesterday. No large pleural effusion or pne umothorax is identified. The bony thorax is grossly intact. IMPRESSION: 1. Cardiomegaly with pulmonary vascular congestion. 2. Extensive/diffuse multifocal airspace opacities are similar to yesterday. ACT 112: Negative or not required by law. Electronically signed by: Ja Villanueva M.D. 07/11/2021 9:41 AM
[2021-07-11 10:44] LABS: Allen Test Pos (Pos)
--- NOTE | 2021-07-11 10:54 | Cardiology Consultation ---
Date of Consultation July 11, 2021 Assessment & Plan (1) Respiratory failure: (2) Elevated troponin I level: (3) Acute respiratory distress: (4) Tachycardia: (5) CHF (congestive heart failure): (6) Aortic stenosis: (7) ASCVD (arteriosclerotic cardiovascular disease): Complex 41 year old female admitted with recurrent acute hypoxemic respiratory failure complicated perhaps by mild acute decompensated diastolic congestive heart failure secondary to underlying mixed valvular heart disease. Minimally elevated troponin noted, likely secondary to the significant critical illness, acute pulmonary exacerbation, tachycardia, decompensation. Recommend consideration for pulmonary/critical care evaluation. Continue cautious IV diuresis. Resume metoprolol succinate soon as possible, as blood pressure permits. Continue antiplatelet therapy as well as statin. Resting echocardiography pending. No overt indication for aortic valve intervention noted at this time; will need to reassess aortic valve status following hospitalization, when compensated from both pulmonary and cardiac standpoint, once heart rate is adequately controlled. Further recommendations pending the above, patient's ongoing hospitalization, and evaluation by Dr. Robertson. Supervising Physician Co-Signing Physician Notes I have seen and examined the patient. She is currently on BiPAP. I reviewed the medical record. Discussed the case with Mr. Sierra. I agree with his plan as outlined above. History of Present Illness Reason for Consultation: CHF Requesting Physician: Yeni Attending Physician: Alyssa History of Present Illness Complex 41-year-old female admitted to [facility] on July 10, 2021, presenting through the ER via ambulance from home with a one week history of cough, chest congestion, worsening shortness of breath, fluid retention, malaise and fatigue. She was notably hypoxic at home, on presentation. Patient received IV Solu- Medrol, cefepime, doxycycline, and nebulizer treatment in the emergency room along with 250 mL of normal saline solution followed by 20 mg IV furosemide. Since admission, she has required BiPAP therapy - working diagnosis of acute multifactorial hypoxic respiratory failure. Cardiology consulted for updating resting echocardiography as well as acute decompensated heart failure. Metoprolol succinate (25 mg/day), lisinopril (2.5 mg/day), and oral diuretics (torsemide 20 mg twice per day, spironolactone 25 mg/day, potassium chloride 20 M EQ/day) were held on admission due to hypotension. EKG on presentation revealed sinus tachycardia at 122 bpm with nonspecific T wave changes. Troponin minimally elevated as follows: 0.08 -> 0.07. Resting echocardiography pending. Continuous telemetry monitoring reveals sinus tachycardia predominantly 100 to 110 bpm. History obtained primarily from chart review due to patient status, BiPAP therapy. Cardiac Problem List: Premature ASCVD Status post 2-vessel coronary intervention in 10/2016, receiving ROJAS to the ramus intermedius and distal circumflex for NTEMI Repeat catheterization on 02/23/2020, s/p PCI with ROJAS to the RCA PDA on 02/23/20 Mixed aortic valve disease, with moderate aortic stenosis and mild aortic regurgitation via September 19, 2020 transesophageal echocardiogram Diastolic congestive heart failure Hypertension Hyperlipidemia Allergies Allergy/AdvReac Type Severity Reaction Status Date / Time lidocaine Allergy Intermediate HIVES Verified 07/10/21 21:33 procaine Allergy Intermediate HIVES Verified 07/10/21 21:33 Penicillins Allergy Mild HAD NO Verified 07/10/21 21:33 PROBLEM WITH ZOSYN strawberry Allergy Mild HIVES Verified 07/10/21 21:33 cephalexin AdvReac Intermediate YEAST Verified 07/10/21 21:33 INFECTIONS tramadol AdvReac Intermediate SEIZURES Verified 07/10/21 21:33 azithromycin AdvReac Mild STOMACH Verified 07/10/21 21:33 PAIN Home Medications Medication Instructions Recorded Confirmed Type albuterol sulfate 2.5 mg INHALATION Q4 PRN 07/10/21 07/10/21 History albuterol sulfate 90 mcg/actuation 2 puff INHALATION Q4 PRN 07/10/21 07/10/21 History aerosol inhaler atorvastatin 80 mg tablet 80 mg PO DAILY 07/10/21 07/10/21 History benzonatate 100 mg capsule 100 mg PO TID PRN 07/10/21 07/10/21 History buprenorphine 8 mg-naloxone 2 mg 0.5 tab SUBLINGUAL TID 07/10/21 07/10/21 History sublingual tablet buspirone 15 mg tablet 15 mg PO BID 07/10/21 07/10/21 History clopidogrel 75 mg tablet 75 mg PO DAILY 07/10/21 07/10/21 History cyclobenzaprine 10 mg tablet 10 mg PO BID 07/10/21 07/10/21 History doxycycline hyclate 100 mg tablet 100 mg PO BID 07/10/21 07/10/21 History escitalopram oxalate 20 mg tablet 20 mg PO DAILY 07/10/21 07/10/21 History fluconazole 150 mg tablet 150 mg PO .ONE TIME DOSE 07/10/21 07/10/21 History glipizide 10 mg tablet 10 mg PO DAILY 07/10/21 07/10/21 History levetiracetam 500 mg tablet 500 mg PO BID 07/10/21 07/10/21 History lisinopril 5 mg tablet 2.5 mg PO DAILY 07/10/21 07/10/21 History loratadine 10 mg tablet 10 mg PO DAILY 07/10/21 07/10/21 History medroxyprogesterone 150 mg/mL 150 mg IM .Q3MO 07/10/21 07/10/21 History intramuscular suspension meloxicam 7.5 mg tablet 7.5 mg PO DAILY 07/10/21 07/10/21 History metformin 1,000 mg tablet 1,000 mg PO BID 07/10/21 07/10/21 History metoprolol succinate 25 mg 25 mg PO DAILY 07/10/21 07/10/21 History tablet,extended release 24 hr omeprazole 20 mg tablet,delayed 20 mg PO DAILY 07/10/21 07/10/21 History release polyethylene glycol 3350 17 gram 17 g PO DAILY PRN 07/10/21 07/10/21 History oral powder packet (Miralax) potassium chloride 20 mEq 20 meq PO DAILY 07/10/21 07/10/21 History tablet,extended release(part/cryst) (Klor-Con M) spironolactone 25 mg tablet 25 mg PO DAILY 07/10/21 07/10/21 History topiramate 25 mg tablet 25 mg PO BID 07/10/21 07/10/21 History torsemide 20 mg tablet 20 mg PO BID 07/10/21 07/10/21 History trazodone 50 mg tablet 25 - 50 mg PO HS 07/10/21 07/10/21 History Patient History Medical History Acute electrocardiogram changes Aortic regurgitation Aortic stenosis Asthma Atypical chest pain Cannabis abuse Cellulitis of both lower extremities Chronic diastolic CHF (congestive heart failure) Coronary artery disease Depression Diabetes mellitus, type 2 Encounter for smoking cessation counseling GERD (gastroesophageal reflux disease) Gram negative sepsis Hepatitis C "Antibiotic screen positive, quantitative RNA positive 08/30/17" Hepatosplenomegaly History of drug abuse History of DVT (deep vein thrombosis) History of renal calculi Hypertension Hypocalcemia Opiate abuse, continuous Overdose Seizure disorder Surgical History History of cardiac cath 2017- 1 ROJAS to ramus, 2 ROJAS to L circumflex. 40-50% plaque to LAD 2018- distal disease (80%) within PDA History of carpal tunnel surgery History of lumbar spinal fusion Hx of tonsillectomy Status post cholecystectomy Family History Other Diabetes Heart disease Hypertension Kidney stones Seizures Social History Smoking Status: Heavy tobacco smoker Tobacco Type: Cigarettes Cigarettes Per Day: 10; Number of Years Since Quit: 31; Second Hand Exposure: Yes; Do You Dip or Chew Tobacco: No; Hx Alcohol Use: Yes Hx Substance Use: Yes (3 years drug free) Non-Prescribed Medications: Heroin, IV Drugs and Methamphetamines Last Used Substance: Unknown Last Used Substance Other:: 1.5 YEARS AGO Substance Use Type Other:: 1.5 years ago Preferred Language: Georgian Communication Ability: Effective Visual Impairment: No Limitations Hearing Ability: Normal [employer] Supervisor Required: No Beliefs That Will Affect Care: None marital status: Single Current Living Situation: Significant Other Current Living Situation Comment: LIVES WITH ROOMMATES Feels Safe at Home: Yes Safety Concerns: Feels Safe At This Time Assistive Devices: None Review of Systems Review of Systems: Complete review of systems unable to be obtained due to the patient's status Physical Exam Physical Exam: General: Respiratory distress. On BiPAP. Lethargic. Obese. HENT: Normocephalic. Atraumatic. Eyes: PER. Conjunctiva pink, sclera clear. Neck: No overt JVD. Heart: Regular at 100 bpm. Soft systolic ejection murmur. No diastolic murmur. No rub. Lungs: Examined anteriorly and laterally. Decreased. Expiratory wheeze. Abdomen: +BS. Soft. Nontender. Extremities: Minimal pretibial edema. No clubbing. No cyanosis Pulses: Posterior tibial=1/4. Results & Data ([facility]) Vital Signs (Past 12 Hours) Vital Signs Temp Pulse Pulse Resp BP BP Pulse Ox 07/11/21 07:52 36.5 C 93 H 33 H 119/73 93 07/11/21 07:09 109 H 33 H 97 07/11/21 07:06 109 H 33 H 97 07/11/21 06:30 109 H 07/11/21 05:04 36.7 C 107 H 20 135/99 99 07/11/21 03:59 36.4 C L 112 H 26 H 123/78 94 07/11/21 02:38 113 H 37 H 93 07/11/21 01:02 37.1 C 07/11/21 00:50 120 H 07/11/21 00:30 120 H 37 H 98 07/11/21 00:01 37.3 C 78 20 114/69 96 07/10/21 23:03 121 H 22 119/76 92 07/10/21 23:00 122 H 20 91 Laboratory Results Laboratory Results - last 24 hr 07/10/21 07/10/21 07/10/21 19:00 19:00 19:00 WBC 26.09 H RBC 3.93 L Hgb 10.8 L Hct 33.1 L MCV 84.2 MCH 27.5 MCHC 32.6 RDW Std Deviation 53.9 H RDW Coeff of Hannah 17.4 H Plt Count 296 MPV 10.1 Immature Gran % (Auto) 0.4 Neut % (Auto) 83.6 Lymph % (Auto) 11.3 [place] % (Auto) 4.0 Eos % (Auto) 0.5 Baso % (Auto) 0.2 Neut # (Auto) 21.82 H Lymph # (Auto) 2.94 [place] # (Auto) 1.04 H Eos # (Auto) 0.14 Baso # (Auto) 0.04 Immature Gran # (Auto) 0.11 H Echinocytes 1+ PT 12.4 H INR 1.2 H ABG pH ABG pCO2 ABG pO2 ABG HCO3 ABG O2 Saturation ABG Base Excess Caesar Test VBG pH VBG pCO2 VBG pO2 VBG HCO3 VBG O2 Saturation VBG Base Excess Barometric Pressure Oxygen Given Sodium 133 L Potassium 3.8 Chloride 103 Carbon Dioxide 20 L Anion Gap 10 BUN 31 H Creatinine 1.65 H Est Cr Clr Drug Dosing 48.2 Est GFR ( Amer) 43.6 Est GFR (Non-Af Amer) 37.6 BUN/Creatinine Ratio 18.8 Glucose 55 L POC Glucose Estimat Average Glucose Hemoglobin A1c Lactate Calcium 7.5 L Magnesium 1.4 L Total Bilirubin 0.7 AST 35 ALT 24 Alkaline Phosphatase 77 Ammonia Troponin I 0.08 H* B-Natriuretic Peptide Total Protein 6.4 Albumin 3.6 Globulin 2.8 Albumin/Globulin Ratio 1.3 Procalcitonin TSH Urine Color Urine Appearance Urine pH Ur Specific [place] Urine Protein Urine Glucose (UA) Urine Ketones Urine Blood Urine Nitrite Urine Bilirubin Urine Urobilinogen Ur Leukocyte Esterase SARS-CoV-2, RNA, NAAT 07/10/21 07/10/21 07/10/21 19:00 19:00 19:19 WBC RBC Hgb Hct MCV MCH MCHC RDW Std Deviation RDW Coeff of Hannah Plt Count MPV Immature Gran % (Auto) Neut % (Auto) Lymph % (Auto) [place] % (Auto) Eos % (Auto) Baso % (Auto) Neut # (Auto) Lymph # (Auto) [place] # (Auto) Eos # (Auto) Baso # (Auto) Immature Gran # (Auto) Echinocytes PT INR ABG pH ABG pCO2 ABG pO2 ABG HCO3 ABG O2 Saturation ABG Base Excess Caesar Test VBG pH VBG pCO2 VBG pO2 VBG HCO3 VBG O2 Saturation VBG Base Excess Barometric Pressure Oxygen Given Sodium Potassium Chloride Carbon Dioxide Anion Gap BUN Creatinine Est Cr Clr Drug Dosing Est GFR ( Amer) Est GFR (Non-Af Amer) BUN/Creatinine Ratio Glucose POC Glucose Estimat Average Glucose Hemoglobin A1c Lactate Calcium Magnesium Total Bilirubin AST ALT Alkaline Phosphatase Ammonia Troponin I B-Natriuretic Peptide Total Protein Albumin Globulin Albumin/Globulin Ratio Procalcitonin 0.71 H TSH 0.641 Urine Color Urine Appearance Urine pH Ur Specific [place] Urine Protein Urine Glucose (UA) Urine Ketones Urine Blood Urine Nitrite Urine Bilirubin Urine Urobilinogen Ur Leukocyte Esterase SARS-CoV-2, RNA, NAAT NEGATIVE 07/10/21 07/10/21 07/10/21 19:35 19:59 19:59 WBC RBC Hgb Hct MCV MCH MCHC RDW Std Deviation RDW Coeff of Hannah Plt Count MPV Immature Gran % (Auto) Neut % (Auto) Lymph % (Auto) [place] % (Auto) Eos % (Auto) Baso % (Auto) Neut # (Auto) Lymph # (Auto) [place] # (Auto) Eos # (Auto) Baso # (Auto) Immature Gran # (Auto) Echinocytes PT INR ABG pH ABG pCO2 ABG pO2 ABG HCO3 ABG O2 Saturation ABG Base Excess Caesar Test VBG pH 7.43 H VBG pCO2 34 L VBG pO2 42 VBG HCO3 22 VBG O2 Saturation 75.5 VBG Base Excess -1.6 Barometric Pressure 738.1 Oxygen Given Sodium Potassium Chloride Carbon Dioxide Anion Gap BUN Creatinine Est Cr Clr Drug Dosing Est GFR ( Amer) Est GFR (Non-Af Amer) BUN/Creatinine Ratio Glucose POC Glucose Estimat Average Glucose Hemoglobin A1c Lactate 1.7 Calcium Magnesium Total Bilirubin AST ALT Alkaline Phosphatase Ammonia Troponin I B-Natriuretic Peptide 200 H Total Protein Albumin Globulin Albumin/Globulin Ratio Procalcitonin TSH Urine Color Urine Appearance Urine pH Ur Specific [place] Urine Protein Urine Glucose (UA) Urine Ketones Urine Blood Urine Nitrite Urine Bilirubin Urine Urobilinogen Ur Leukocyte Esterase SARS-CoV-2, RNA, NAAT 07/10/21 07/10/21 07/10/21 21:20 21:20 22:00 WBC RBC Hgb Hct MCV MCH MCHC RDW Std Deviation RDW Coeff of Hannah Plt Count MPV Immature Gran % (Auto) Neut % (Auto) Lymph % (Auto) [place] % (Auto) Eos % (Auto) Baso % (Auto) Neut # (Auto) Lymph # (Auto) [place] # (Auto) Eos # (Auto) Baso # (Auto) Immature Gran # (Auto) Echinocytes PT INR ABG pH ABG pCO2 ABG pO2 ABG HCO3 ABG O2 Saturation ABG Base Excess Caesar Test VBG pH VBG pCO2 VBG pO2 VBG HCO3 VBG O2 Saturation VBG Base Excess Barometric Pressure Oxygen Given Sodium 134 L Potassium 4.2 Chloride 105 Carbon Dioxide 22 Anion Gap 7 BUN 30 H Creatinine 1.44 H Est Cr Clr Drug Dosing 55.2 Est GFR ( Amer) 51.4 Est GFR (Non-Af Amer) 44.4 BUN/Creatinine Ratio 20.8 H Glucose 92 POC Glucose Estimat Average Glucose Hemoglobin A1c Lactate Calcium 8.2 L Magnesium Total Bilirubin AST ALT Alkaline Phosphatase Ammonia 22.0 Troponin I 0.07 H* B-Natriuretic Peptide Total Protein Albumin Globulin Albumin/Globulin Ratio Procalcitonin TSH Urine Color Yellow Urine Appearance Clear Urine pH 5.0 Ur Specific [place] 1.013 Urine Protein Negative Urine Glucose (UA) Negative Urine Ketones Negative Urine Blood Negative Urine Nitrite Negative Urine Bilirubin Negative Urine Urobilinogen Negative Ur Leukocyte Esterase Negative SARS-CoV-2, RNA, NAAT 07/10/21 07/11/21 07/11/21 22:39 00:31 05:38 WBC 29.67 H RBC 4.08 L Hgb 11.4 L Hct 34.1 L MCV 83.6 MCH 27.9 MCHC 33.4 RDW Std Deviation 53.7 H RDW Coeff of Hannah 17.4 H Plt Count 296 MPV 9.8 Immature Gran % (Auto) 0.3 Neut % (Auto) 95.2 Lymph % (Auto) 2.6 [place] % (Auto) 1.8 Eos % (Auto) 0.0 Baso % (Auto) 0.1 Neut # (Auto) 28.25 H Lymph # (Auto) 0.77 L [place] # (Auto) 0.53 Eos # (Auto) 0.00 Baso # (Auto) 0.03 Immature Gran # (Auto) 0.09 H Echinocytes 1+ PT INR ABG pH ABG pCO2 ABG pO2 ABG HCO3 ABG O2 Saturation ABG Base Excess Caesar Test VBG pH VBG pCO2 VBG pO2 VBG HCO3 VBG O2 Saturation VBG Base Excess Barometric Pressure Oxygen Given Sodium Potassium Chloride Carbon Dioxide Anion Gap BUN Creatinine Est Cr Clr Drug Dosing Est GFR ( Amer) Est GFR (Non-Af Amer) BUN/Creatinine Ratio Glucose POC Glucose 197 H Estimat Average Glucose 157 Hemoglobin A1c 7.1 H Lactate Calcium Magnesium Total Bilirubin AST ALT Alkaline Phosphatase Ammonia Troponin I B-Natriuretic Peptide Total Protein Albumin Globulin Albumin/Globulin Ratio Procalcitonin TSH Urine Color Urine Appearance Urine pH Ur Specific [place] Urine Protein Urine Glucose (UA) Urine Ketones Urine Blood Urine Nitrite Urine Bilirubin Urine Urobilinogen Ur Leukocyte Esterase SARS-CoV-2, RNA, NAAT 07/11/21 07/11/21 07/11/21 05:38 06:06 09:00 WBC RBC Hgb Hct MCV MCH MCHC RDW Std Deviation RDW Coeff of Hannah Plt Count MPV Immature Gran % (Auto) Neut % (Auto) Lymph % (Auto) [place] % (Auto) Eos % (Auto) Baso % (Auto) Neut # (Auto) Lymph # (Auto) [place] # (Auto) Eos # (Auto) Baso # (Auto) Immature Gran # (Auto) Echinocytes PT INR ABG pH 7.42 ABG pCO2 37 ABG pO2 65 L ABG HCO3 23 ABG O2 Saturation 92.8 ABG Base Excess -1.1 Caesar Test Pos VBG pH VBG pCO2 VBG pO2 VBG HCO3 VBG O2 Saturation VBG Base Excess Barometric Pressure 737.7 Oxygen Given 40% Sodium 134 L Potassium 4.7 Chloride 107 Carbon Dioxide 21 Anion Gap 6 BUN 25 H Creatinine 1.16 Est Cr Clr Drug Dosing 68.6 Est GFR ( Amer) 66.8 Est GFR (Non-Af Amer) 57.6 BUN/Creatinine Ratio 21.6 H Glucose 250 H POC Glucose 261 H Estimat Average Glucose Hemoglobin A1c Lactate Calcium 8.7 Magnesium 2.5 H Total Bilirubin AST ALT Alkaline Phosphatase Ammonia Troponin I B-Natriuretic Peptide Total Protein Albumin Globulin Albumin/Globulin Ratio Procalcitonin TSH Urine Color Urine Appearance Urine pH Ur Specific [place] Urine Protein Urine Glucose (UA) Urine Ketones Urine Blood Urine Nitrite Urine Bilirubin Urine Urobilinogen Ur Leukocyte Esterase SARS-CoV-2, RNA, NAAT (1) CHF (congestive heart failure) Heart failure chronicity: acute Heart failure type: unspecified Qualified Code(s): I50.9 - Heart failure, unspecified
[2021-07-11] MEDS: ATORVASTATIN 40 MG TAB PO SCH ×2 (11:00→12:08)
[2021-07-11] MEDS: TOPIRAMATE 25 MG TAB PO SCH ×2 (11:01→20:49)
[2021-07-11] MEDS: levETIRAcetam 500 MG TAB PO SCH ×2 (11:01→12:13)
[2021-07-11] MEDS: ESCITALOPRAM OXALATE 20 MG TAB PO SCH ×2 (11:02→12:08)
[2021-07-11] MEDS: DOXYCYCLINE HYCLATE 100 MG CAP PO SCH ×2 (11:02→12:12)
[2021-07-11] MEDS: PANTOprazole 40 MG TAB PO SCH ×2 (11:02→12:11)
[2021-07-11] MEDS: CLOPIDOGREL BISULFATE 75 MG TAB PO SCH (11:03)
[2021-07-11] MEDS: BUPRENORPHINE/NALOXONE 8/2 MG TAB SL SCH ×4 (11:03→20:49)
[2021-07-11] MEDS ORDERED: DOXYCYCLINE HYCLATE 100 MG in DEXTROSE 5% 100 ML IV ONE (12:30)
[2021-07-11] MEDS ORDERED: PANTOprazole 40 MG in SYRINGE 0 ML IV ONE (12:30)
[2021-07-11] MEDS ORDERED: levETIRAcetam 500 MG in 0.9 % SODIUM CHLORIDE 100 ML IV ONE (12:30)
[2021-07-11] MEDS ORDERED: METOPROLOL SUCC 25MG EXT REL TAB PO SCH (15:30)
--- NOTE | 2021-07-11 15:34 | Hospitalist Progress Note ---
Date of Service July 11, 2021 Assessment & Plan (1) Respiratory failure: Plan: Acute on chronic respiratory failure with Hypoxia Multifactorial:Asthma/COPD exacerbation, CAP, acute on chronic diastolic heart failure Severe sepsis SIRS plus ARF plus hypoxemia secondary to pneumonia --CXR:Cardiomegaly with pulmonary vascular congestion. Extensive/diffuse multifocal airspace opacities are similar to yesterday. --Venous Doppler: No sonographic evidence of deep venous thrombosis. --ECHO: EF 50 to 55%. Right ventricle systolic function is normal. Left atrium size is normal. Right atrial size is normal. Moderate valvular aortic stenosis. --Procalcitonin 0.07 --Blood Cx pending --Continue BiPAP as needed --Continue Solu-medrol, Nebs, Cefepime and Doxy --Appreciate Cardiology Input --Monitor I's and O's, daily weight, volume status IV Lasix as tolerated Consider pulmonary evaluation if needed Will recheck ABG/VBG as needed Consult Pulmonology if no improvement Acute Kidney Injury Cr:1.44>1.16 Monitor renal function Avoid nephrotoxic agents as able Lisinopril held CAD S/P Stent Mild troponin elevation--likely demand ischemia secondary to hypoxia Continue home medications Hypertension Lisinopril held Continue metoprolol Hyperlipidemia on statin H/O HCV Not been treated Patient follows with [facility] DM II HbA1C: 7.1 Hold p.o. meds Continue insulin while hospitalized Monitor BGs Seizure disorder Continue home meds H/O DVT status post anticoagulation Chronic pain H/O polysubstance abuse ongoing tobacco abuse On Suboxone Counseled to quit smoking DVT Px: Heparin SQ Code Status Full Code Admission and Anticipated Discharge Date Admission Date: July 10, 2021 Subjective Patient is seen and examined at bedside States feeling tired Reports dyspnea and intermittent cough Denies chest pain, nausea, dizziness, abd pain Offers no other complaints Review of Systems Review of Systems: All systems reviewed & are unremarkable except as noted in Subjective Physical Exam Physical Exam: Physical Exam: Vitals signs as noted above General Appearance:Obese, Moderately built and nourished, on BiPAP Head: normocephalic, Atraumatic Eyes: normal inspection, EOMI Neck: supple, Trachea midline Respiratory/Chest: Decreased breath sounds, CTA Cardiovascular: S1, S2, +murmur, +Tachycardia Abdomen/GI:Soft, Non tender, Bowel sounds present Extremities/Musculoskeletal:normal inspection, 1+ B/L LE edema Neurologic/Psych:AAOX3, grossly no focal neurological deficits Skin: normal color, warm Results & Data Results & Data ([facility]) Vital Signs (Past 12 Hours) Vital Signs Temp Pulse Pulse Resp BP Pulse Ox 07/11/21 12:40 112 H 34 H 94 07/11/21 12:37 112 H 34 H 94 07/11/21 12:15 30 H 95 07/11/21 11:58 36.6 C 107 H 30 H 132/76 91 07/11/21 11:19 106 H 34 H 92 07/11/21 07:52 36.5 C 93 H 33 H 119/73 93 07/11/21 07:09 109 H 33 H 97 07/11/21 07:06 109 H 33 H 97 07/11/21 06:30 109 H 07/11/21 05:04 36.7 C 107 H 20 135/99 99 07/11/21 03:59 36.4 C L 112 H 26 H 123/78 94 Laboratory Results Short CBC 07/10/21 07/11/21 Range/Units 19:00 05:38 WBC 26.09 H 29.67 H (4.8-10.8) K/uL Hgb 10.8 L 11.4 L (12.0-16.0) g/dL Hct 33.1 L 34.1 L (37-47) % Plt Count 296 296 (130-400) K/uL BMP 07/10/21 07/10/21 07/11/21 19:00 21:20 05:38 Sodium 133 L 134 L 134 L Potassium 3.8 4.2 4.7 Chloride 103 105 107 Carbon Dioxide 20 L 22 21 BUN 31 H 30 H 25 H Creatinine 1.65 H 1.44 H 1.16 Glucose 55 L 92 250 H Calcium 7.5 L 8.2 L 8.7 Cardiac Enzymes 07/10/21 07/10/21 Range/Units 19:00 21:20 Troponin I 0.08 H* 0.07 H* (0-0.04) ng/ml Liver Function 07/10/21 Range/Units 19:00 Total Bilirubin 0.7 (0.2-1.0) mg/dl AST 35 (13-39) U/L ALT 24 (7-52) U/L Alkaline Phosphatase 77 (34-104) U/L Albumin 3.6 (3.4-5.0) gm/dl Urine 07/10/21 Range/Units 22:00 Urine Color Yellow Urine Appearance Clear (Clear) Urine pH 5.0 (4.5-7.5) Ur Specific [place] 1.013 (1.000-1.030) Urine Protein Negative (Negative) Urine Glucose (UA) Negative (Negative)
[2021-07-11] MEDS: levETIRAcetam 500 MG in 0.9 % SODIUM CHLORIDE 100 ML IV SCH (22:51)
[2021-07-11] MEDS: DOXYCYCLINE HYCLATE 100 MG in DEXTROSE 5% 100 ML IV SCH (23:41)
[2021-07-12] MEDS: IPRATROPIUM BROMIDE NEB SOLN 0.02% 2.5 ML VIAL INH SCH ×4 (00:49→19:59)
[2021-07-12] MEDS: LEVALBUTEROL 1.25MG/0.5ML NEB INH SCH ×5 (00:49→19:59)
[2021-07-12] MEDS ORDERED: hydrOXYzine HCl 10 MG TAB PO STA (00:56)
[2021-07-12] MEDS ORDERED: METOPROLOL SUCC 25MG EXT REL TAB PO SCH ×2 (01:00→09:00)
[2021-07-12] MEDS ORDERED: FUROSEMIDE INJ 20 MG/2 ML VIAL IV ONE (01:28)
[2021-07-12] MEDS ORDERED: methylPREDNISolone 40 MG in SYRINGE 0 ML IV SCH (01:30)
[2021-07-12] MEDS ORDERED: METOPROLOL TARTRATE 1 MG/ML VIAL IV STA (01:38)
[2021-07-12] MEDS ORDERED: OLANZapine 10 MG/2.1 ML SDV IM STA (01:38)
[2021-07-12 01:42] LABS: iSTAT Art Bld Gas pCO2 Correct 32 mmHg (35-46); iSTAT Art Bld Gas pH Corrected 7.416 (7.35-7.45); iSTAT Arterial Blood Gas HCO3 21 meg/L (19-24); iSTAT Arterial Blood Gas pCO2 33 mmHg (35-46); iSTAT Arterial Blood Gas pH 7.41 (7.35-7.45); iSTAT Arterial Blood Gas pO2 51 mmHg (80-95); iSTAT Arterial Blood Gas pO2 C 49; iSTAT Carbon Dioxide 22 mmol/L (24-31); iSTAT FiO2 100 %; iSTAT Hematocrit 34 % (37-47); iSTAT Hemoglobin 11.6 g/dl (12.0-16.0); iSTAT Potassium 4.3 mmol/L (3.3-5.0); iSTAT Site R Brachial; iSTAT Sodium 137 mmol/L (135-144)
[2021-07-12] MEDS: CEFEPIME 2,000 MG in SYRINGE 0 ML IV SCH ×3 (05:06→20:53)
[2021-07-12] MEDS: HEPARIN SOD 5,000 UNIT/0.5 ML VIAL SQ SCH ×3 (05:07→21:22)
--- NOTE | 2021-07-12 06:00 | Electrocardiogram Report ---
Test Reason : Blood Pressure : / mmHG Vent. Rate : 122 BPM Atrial Rate : 122 BPM P-R Int : 134 ms QRS Dur : 082 ms QT Int : 334 ms P-R-T Axes : 052 047 049 degrees QTc Int : 475 ms Sinus tachycardia Nonspecific T wave abnormality Abnormal ECG When compared with ECG of 16-NOV-2020 15:57, No significant change Confirmed by Mohit Girard ([id number]) on 07/12/2021 5:59:38 AM Referred By: REFERRED SELF Confirmed By:Mohit Girard
[2021-07-12] MEDS: INSULIN ASPART PER UNIT SC SCH ×4 (06:01→23:39)
[2021-07-12 06:18] LABS: Hematocrit (blood only) 34.3 % (37-47); Hemoglobin 11.3 g/dL (12.0-16.0); Mean Corpuscular Hgb Conc 32.9 g/dL (32-36); Mean Corpuscular Volume 84.9 fL (80-100); Mean Platelet Volume 9.8 fL (7.4-10.4); Platelet Count 319 K/uL (130-400); RDW Coefficient of Variation 17.7 % (11.5-14.5); RDW Standard Deviation 55.3 fL (36.4-46.3); Red Blood Count 4.04 M/uL (4.2-5.4); White Blood Count 28.82 K/uL (4.8-10.8)
[2021-07-12 07:01] LABS: Basophils # (auto) 0.01 K/uL (0-0.2); Eosinophils # (auto) 0.01 K/uL (0-0.5); Immature Granulocytes # (auto) 0.17 K/uL (0.00-0.02); Immature Granulocytes % (auto) 0.6 %; Lymphocytes # (auto) 0.82 K/uL (1.2-3.4); Lymphocytes % (auto) 2.8 %; Monocytes # (auto) 0.84 K/uL (0.11-0.59); Monocytes % (auto) 2.9 %; Neutrophils # (auto) 26.97 K/uL (1.4-6.5); Neutrophils % (auto) 93.7 %
--- NOTE | 2021-07-12 07:14 | XRay Report ---
SINGLE VIEW CHEST CLINICAL HISTORY: Hypoxia FINDINGS: An AP, portable, upright chest radiograph is compared to chest x-ray dated 07/11/2021 and co rrelated with chest CT dated 07/10/2021. The heart is enlarged. There is pulmonary vascular congestion . Multifocal airspace opacities are again seen throughout both lungs. This has increased from yesterd ay. Small pleural effusions are suspected. No pneumothorax is identified. The bony thorax is grossly intact. IMPRESSION: 1. Cardiomegaly with pulmonary vascular congestion. 2. Extensive/diffuse multifocal airspace opacities have increased from yesterday. This could represen t pulmonary edema and/or multifocal pneumonia. Clinical correlation will be required and radiographic follow-up to resolution is recommended. 3. Suspect small pleural effusions. ACT 112: Negative or not required by law. Electronically signed by: Ja Villanueva M.D. 07/12/2021 7:13 AM
[2021-07-12 08:23] LABS: BUN Creatinine Ratio 24.7 (10-20); Calcium 8.5 mg/dl (8.5-10.1); Creatinine Clr Calc Pharmacy 82.6 ml/min; Est GFR (African American) 87.2 ml/min; Est GFR (Non-African American) 75.3 ml/min; Magnesium 2.3 mg/dl (1.7-2.4); Potassium 4.3 mmol/L (3.5-5.1)
--- NOTE | 2021-07-12 09:30 | Cardiology Progress Note ---
Date of Service July 12, 2021 Assessment & Plan (1) Respiratory failure: (2) Elevated troponin I level: (3) Acute respiratory distress: (4) Tachycardia: (5) CHF (congestive heart failure): (6) Aortic stenosis: (7) ASCVD (arteriosclerotic cardiovascular disease): Plan: Complex 41 year old female admitted with recurrent acute hypoxemic respiratory failure complicated by mild acute decompensated diastolic congestive heart failure, underlying mixed valvular heart disease. Minimally elevated troponin secondary to the significant critical illness, acute pulmonary exacerbation, tachycardia, decompensation. Continue cautious IV diuresis. Maintain electrolyt es. Continue metoprolol, antiplatelet therapy, and statin. Reassess aortic valve status following hospitalization, when compensated from both pulmonary and cardiac standpoint, once heart rate is adequately controlled. Admission and Anticipated Discharge Date Admission Date: July 10, 2021 Supervising Physician Co-Signing Physician Notes I have seen and examined the patient. I reviewed the medical record and discussed the case with Mr. Sierra. The patient has been moved to the ICU for better management, otherwise I agree with the plan as outlined above. Subjective Patient seen, examined. Chart, medications, resting echocardiography, and telemetry reviewed. On BiPAP. More alert. Feeling some better. Less dyspnea. No chest pain. Received 20 mg IV furosemide early this AM Metoprolol resumed. I/O's: +959 mL on 07/11, -1,370 mL thus far on 07/12/2021; -411 ml's overall Telemetry: Sinus tachycardia 100-120 bpm. July 11, 2021 TTE Interpretation Summary ([facility], Dr. Robertson): Normal size LV. Normal LV systolic function. EF 50-55%. Normal RV systolic function. Normal LA and RA size. Moderate aortic stenosis. Review of Systems Review of Systems: Very limited due to patient's condition, BiPAP therapy Physical Exam Physical Exam: General: On BiPAP. Answers questions via "thumbs up." Obese. HENT: Normocephalic. Atraumatic. Eyes: PER. Conjunctiva pink, sclera clear. Neck: No overt JVD. Heart: Regular at 110 bpm. Soft systolic ejection murmur. No diastolic murmur. No rub. Lungs: Decreased. Diminished. Tight. Diffuse wheeze and rhonchi. Abdomen: +BS. Soft. Nontender. Extremities: No significant pretibial edema. No clubbing. No cyanosis Pulses: Posterior tibial=1/4. Results & Data ([facility]) Vital Signs (Past 12 Hours) Vital Signs Temp Pulse Pulse Resp BP BP Pulse Ox 07/12/21 08:14 36.5 C 110 H 24 142/88 H 98 07/12/21 07:29 110 H 110 H 32 H 94 07/12/21 07:22 114 H 07/12/21 03:51 36.7 C 104 H 20 145/83 H 93 07/12/21 03:11 113 H 30 H 97 07/12/21 01:58 111 H 168/92 H 07/12/21 01:35 38 H 95 07/12/21 00:11 07/11/21 23:54 36.5 C 111 H 24 168/92 H 90 Pulse Ox 07/12/21 08:14 07/12/21 07:29 07/12/21 07:22 07/12/21 03:51 07/12/21 03:11 07/12/21 01:58 07/12/21 01:35 07/12/21 00:11 90 07/11/21 23:54 Laboratory Results Laboratory Results - last 24 hr 07/11/21 07/11/21 07/11/21 09:00 12:12 18:08 WBC RBC Hgb POC Hgb Hct POC Hct MCV MCH MCHC RDW Std Deviation RDW Coeff of Hannah Plt Count MPV Immature Gran % (Auto) Neut % (Auto) Lymph % (Auto) Morrison % (Auto) Eos % (Auto) Baso % (Auto) Neut # (Auto) Lymph # (Auto) Morrison # (Auto) Eos # (Auto) Baso # (Auto) Immature Gran # (Auto) Sample Site POC pH POC pCO2 POC pO2 POC HCO3 POC Total CO2 POC Base Excess ABG pH 7.42 ABG pH (Temp Correct) ABG pCO2 37 ABG pCO2 (Temp Corrct ABG pO2 65 L POC ABG pO2 at Pt Temp ABG HCO3 23 POC ABG O2 Sat ABG O2 Saturation 92.8 ABG Base Excess -1.1 Caesar Test Pos Barometric Pressure 737.7 Oxygen Given 40% O2 Delivery Device POC FiO2 POC Sodium Sodium POC Potassium Potassium Chloride Carbon Dioxide Anion Gap BUN Creatinine Est Cr Clr Drug Dosing Est GFR ( Amer) Est GFR (Non-Af Amer) BUN/Creatinine Ratio Glucose POC Glucose 209 H 217 H Calcium Magnesium Procalcitonin 07/11/21 07/12/21 07/12/21 23:43 01:26 05:57 WBC RBC Hgb POC Hgb 11.6 L Hct POC Hct 34 L MCV MCH MCHC RDW Std Deviation RDW Coeff of Hannah Plt Count MPV Immature Gran % (Auto) Neut % (Auto) Lymph % (Auto) Morrison % (Auto) Eos % (Auto) Baso % (Auto) Neut # (Auto) Lymph # (Auto) Morrison # (Auto) Eos # (Auto) Baso # (Auto) Immature Gran # (Auto) Sample Site R Brachial POC pH 7.41 POC pCO2 33 L POC pO2 51 L POC HCO3 21 POC Total CO2 22 L POC Base Excess -4.0 ABG pH ABG pH (Temp Correct) 7.416 ABG pCO2 ABG pCO2 (Temp Corrct 32 L ABG pO2 POC ABG pO2 at Pt Temp 49 ABG HCO3 POC ABG O2 Sat 86.0 L ABG O2 Saturation ABG Base Excess Caesar Test NA Barometric Pressure Oxygen Given O2 Delivery Device NonRb Mask POC FiO2 100 POC Sodium 137 Sodium POC Potassium 4.3 Potassium Chloride Carbon Dioxide Anion Gap BUN Creatinine Est Cr Clr Drug Dosing Est GFR ( Amer) Est GFR (Non-Af Amer) BUN/Creatinine Ratio Glucose POC Glucose 202 H 212 H Calcium Magnesium Procalcitonin 07/12/21 07/12/21 07/12/21 05:58 05:58 05:58 WBC 28.82 H RBC 4.04 L Hgb 11.3 L POC Hgb Hct 34.3 L POC Hct MCV 84.9 MCH 28.0 MCHC 32.9 RDW Std Deviation 55.3 H RDW Coeff of Hannah 17.7 H Plt Count 319 MPV 9.8 Immature Gran % (Auto) 0.6 Neut % (Auto) 93.7 Lymph % (Auto) 2.8 Morrison % (Auto) 2.9 Eos % (Auto) 0.0 Baso % (Auto) 0.0 Neut # (Auto) 26.97 H Lymph # (Auto) 0.82 L Morrison # (Auto) 0.84 H Eos # (Auto) 0.01 Baso # (Auto) 0.01 Immature Gran # (Auto) 0.17 H Sample Site POC pH POC pCO2 POC pO2 POC HCO3 POC Total CO2 POC Base Excess ABG pH ABG pH (Temp Correct) ABG pCO2 ABG pCO2 (Temp Corrct ABG pO2 POC ABG pO2 at Pt Temp ABG HCO3 POC ABG O2 Sat ABG O2 Saturation ABG Base Excess Caesar Test Barometric Pressure Oxygen Given O2 Delivery Device POC FiO2 POC Sodium Sodium 136 POC Potassium Potassium 4.3 Chloride 108 H Carbon Dioxide 22 Anion Gap 6 BUN 23 Creatinine 0.93 Est Cr Clr Drug Dosing 82.6 Est GFR ( Amer) 87.2 Est GFR (Non-Af Amer) 75.3 BUN/Creatinine Ratio 24.7 H Glucose 209 H POC Glucose Calcium 8.5 Magnesium 2.3 Procalcitonin 0.30 (1) CHF (congestive heart failure) Heart failure chronicity: acute Heart failure type: unspecified Qualified Code(s): I50.9 - Heart failure, unspecified
[2021-07-12] MEDS: CLOPIDOGREL BISULFATE 75 MG TAB PO SCH (09:45)
[2021-07-12] MEDS: TOPIRAMATE 25 MG TAB PO SCH ×2 (09:45→19:14)
[2021-07-12] MEDS: ATORVASTATIN 40 MG TAB PO SCH (09:45)
[2021-07-12] MEDS: ESCITALOPRAM OXALATE 20 MG TAB PO SCH (09:45)
[2021-07-12] MEDS: BUPRENORPHINE/NALOXONE 8/2 MG TAB SL SCH ×3 (09:50→20:54)
[2021-07-12] MEDS: INSULIN GLARGINE SOLOSTAR 100 UNITS/ML 3 ML PEN SC SCH (09:52)
[2021-07-12] MEDS ORDERED: LORazepam 2 MG/1 ML VIAL IV STA (10:52)
--- NOTE | 2021-07-12 10:54 | Hospitalist Progress Note ---
Date of Service July 12, 2021 Assessment & Plan (1) Respiratory failure: Plan: Acute on chronic respiratory failure with Hypoxia Multifactorial:Asthma/COPD exacerbation, CAP, acute on chronic diastolic heart failure Severe sepsis SIRS plus ARF plus hypoxemia secondary to possible pneumonia -CXR:Cardiomegaly with pulmonary vascular congestion. Extensive/diffuse multifocal airspace opacities are similar to yesterday. -Venous Doppler: No sonographic evidence of deep venous thrombosis. -ECHO: EF 50 to 55%. Right ventricle systolic function is normal. Left atrium size is normal. Right atrial size is normal. Moderate valvular aortic stenosis. -Procalcitonin 0.71->0.30 -Blood Cx negative so far Cardiology on board. Patient has been getting diuresis Patient is currently in resp distress Repeat ABG stat. Called and spoke with ICU Dr Jaquez. Appreciate his recommendations IV morphine 2mg stat. IV lasix given Keep NPO Will transfer to ICU for closer monitoring Low threshold for intubation if needed Continue IV cefepime and doxycycline for now Acute Kidney Injury Cr:1.44->1.16->0.93 AIJT now resolved Lisinopril held CAD S/P Stent Mild troponin elevation--likely demand ischemia secondary to hypoxia Continue home medications Cardiology on board. Recommendations appreciated Hypertension Lisinopril held Continue metoprolol Hyperlipidemia On statin H/O HCV Not been treated Patient to f/u with [facility] outpatient DM II HbA1C: 7.1 Hold p.o. meds Continue insulin while hospitalized Monitor BGs Seizure disorder Keppra po changed to iv while npo H/O DVT Status post anticoagulation Chronic pain H/O polysubstance abuse Ongoing tobacco abuse On Suboxone Will provide more counselling once stabilized DVT Px: Heparin SQ Dispo : Transfer to ICU Code Status Full Code 40mins of critical care provided. This is time involved in chart review, physical examination, lab review, consultation with Intelligence Intern and Survey Crew Chief, ordering medications and coordinating care with patient's washer hand and Anticipated Discharge Date Admission Date: July 10, 2021 Subjective Patient seen and examined Patient appears to be in respiratory distress with tachypnea and use of accessory muscles Currently on BIPAP. Awake, anxious Answers with head nodding Could not get any history or ROS from patient due to respiratory distress Physical Exam Constitutional: + acute distress and + obese Eyes: PERRL, conjunctivae normal, anicteric sclerae ENMT: On BIPAP Respiratory: In resp distress, tachypneic, use of accessory muscles, reduced air entry b/l Cardiovascular: Tachycardic S1 S2 Gastrointestinal (Abdomen): normal bowel sounds, soft, nontender, no hepatosplenomegaly Musculoskeletal: No pedal edema Neurologic: Anxious, awake, moves all extremities Results & Data Results & Data ([facility]) Vital Signs (Past 12 Hours) Vital Signs Temp Pulse Pulse Resp BP BP Pulse Ox 07/12/21 08:14 36.5 C 110 H 24 142/88 H 98 07/12/21 07:29 110 H 110 H 32 H 94 07/12/21 07:22 114 H 07/12/21 03:51 36.7 C 104 H 20 145/83 H 93 07/12/21 03:11 113 H 30 H 97 07/12/21 01:58 111 H 168/92 H 07/12/21 01:35 38 H 95 07/12/21 00:11 07/11/21 23:54 36.5 C 111 H 24 168/92 H 90 Pulse Ox 07/12/21 08:14 07/12/21 07:29 07/12/21 07:22 07/12/21 03:51 07/12/21 03:11 07/12/21 01:58 07/12/21 01:35 07/12/21 00:11 90 07/11/21 23:54 Laboratory Results Abnormal lab results 07/11/21 07/11/21 07/11/21 Range/Units 12:12 18:08 23:43 WBC (4.8-10.8) K/uL RBC (4.2-5.4) M/uL Hgb (12.0-16.0) g/dL POC Hgb (12.0-16.0) g/dl Hct (37-47) % POC Hct (37-47) % RDW Std Deviation (36.4-46.3) fL RDW Coeff of Hannah (11.5-14.5) % Neut # (Auto) (1.4-6.5) K/uL Lymph # (Auto) (1.2-3.4) K/uL Falls # (Auto) (0.11-0.59) K/uL Immature Gran # (Auto) (0.00-0.02) K/uL POC pCO2 (35-46) mmHg POC pO2 (80-95) mmHg POC Total CO2 (24-31) mmol/L ABG pCO2 (Temp Corrct (35-46) mmHg ABG pO2 (80-95) mmHg POC ABG O2 Sat (90-95) % ABG O2 Saturation (90-95) % Chloride (98-107) mmol/L BUN/Creatinine Ratio (10-20) Glucose (70-99(Fasting)) mg/dl POC Glucose 209 H 217 H 202 H (70-99) mg/dl 07/12/21 07/12/21 07/12/21 Range/Units 01:26 05:57 05:58 WBC (4.8-10.8) K/uL RBC (4.2-5.4) M/uL Hgb (12.0-16.0) g/dL POC Hgb 11.6 L (12.0-16.0) g/dl Hct (37-47) % POC Hct 34 L (37-47) % RDW Std Deviation (36.4-46.3) fL RDW Coeff of Hannah (11.5-14.5) % Neut # (Auto) (1.4-6.5) K/uL Lymph # (Auto) (1.2-3.4) K/uL Falls # (Auto) (0.11-0.59) K/uL Immature Gran # (Auto) (0.00-0.02) K/uL POC pCO2 33 L (35-46) mmHg POC pO2 51 L (80-95) mmHg POC Total CO2 22 L (24-31) mmol/L ABG pCO2 (Temp Corrct 32 L (35-46) mmHg ABG pO2 (80-95) mmHg POC ABG O2 Sat 86.0 L (90-95) % ABG O2 Saturation (90-95) % Chloride 108 H (98-107) mmol/L BUN/Creatinine Ratio 24.7 H (10-20) Glucose 209 H (70-99(Fasting)) mg/dl POC Glucose 212 H (70-99) mg/dl 07/12/21 07/12/21 07/12/21 Range/Units 05:58 11:00 11:00 WBC 28.82 H (4.8-10.8) K/uL RBC 4.04 L (4.2-5.4) M/uL Hgb 11.3 L (12.0-16.0) g/dL POC Hgb (12.0-16.0) g/dl Hct 34.3 L (37-47) % POC Hct (37-47) % RDW Std Deviation 55.3 H (36.4-46.3) fL RDW Coeff of Hannah 17.7 H (11.5-14.5) % Neut # (Auto) 26.97 H (1.4-6.5) K/uL Lymph # (Auto) 0.82 L (1.2-3.4) K/uL Falls # (Auto) 0.84 H (0.11-0.59) K/uL Immature Gran # (Auto) 0.17 H (0.00-0.02) K/uL POC pCO2 (35-46) mmHg POC pO2 (80-95) mmHg POC Total CO2 (24-31) mmol/L ABG pCO2 (Temp Corrct (35-46) mmHg ABG pO2 133 H (80-95) mmHg POC ABG O2 Sat (90-95) % ABG O2 Saturation 99.0 H (90-95) % Chloride (98-107) mmol/L BUN/Creatinine Ratio (10-20) Glucose (70-99(Fasting)) mg/dl POC Glucose 234 H (70-99) mg/dl
[2021-07-12] MEDS ORDERED: MoRPHine SULFATE 2 MG/ML CARP IV STA (11:02)
[2021-07-12] MEDS ORDERED: MoRPHine SULFATE 2 MG/ML CARP ONE (11:03)
[2021-07-12] MEDS ORDERED: FUROSEMIDE 40 MG/4 ML VIAL IV ONE ×3 (11:06→18:57)
[2021-07-12] MEDS ORDERED: NITROGLYCERIN 2% OINTMENT 30GM TUBE EXT ONE (11:07)
[2021-07-12] MEDS ORDERED: NITROGLYCERIN 2% OINTMENT 30GM TUBE ONE (11:07)
[2021-07-12 11:15] LABS: Allen Test Pos (Pos); Base Excess ABG -2.3 mEq/L (-9-1.8); HCO3 ABG 23 mmol/L (19-24); PCO2 ABG 44 mmHg (35-46); PO2 ABG 133 mmHg (80-95); pH ABG 7.35 (7.35-7.45)
[2021-07-12] MEDS: levETIRAcetam 500 MG in 0.9 % SODIUM CHLORIDE 100 ML IV SCH ×2 (13:02→23:17)
[2021-07-12] MEDS: DOXYCYCLINE HYCLATE 100 MG in DEXTROSE 5% 100 ML IV SCH ×2 (13:18→23:28)
[2021-07-12] MEDS: PANTOprazole 40 MG in SYRINGE 0 ML IV SCH (13:18)
--- NOTE | 2021-07-12 15:36 | Pulmonary Consultation ---
Date of Consultation July 12, 2021 Assessment & Plan (1) Acute respiratory failure with hypoxia: (2) Abnormal CT scan, chest: (3) Acute CHF (congestive heart failure): (4) Aortic stenosis: 41-year-old female with history of aortic stenosis, diastolic CHF, obesity, opiate abuse, GERD and depression presenting to the hospital due to shortness of breath. Her CT chest findings and acute hypoxemic respiratory failure is likely multifactorial related to acute diastolic CHF, aortic stenosis and a possible element of multifocal pneumonia. Inflammatory lung disease difficult to rule out. Bronchoscopy is recommended, but not possible without intubation and mechanical ventilation at this time given her respiratory failure. Would like to rule out diffuse alveolar hemorrhage, eosinophilic pneumonia, atypical infectious etiology and others. Recommend obtaining an CHRISTIAN screen, ESR, CRP, HIV screen. Patient denies hemoptysis. Hemoglobin stable. Alveolar hemorrhage seems less likely, but remains possible. Continue with empiric antibiotics and steroids for the time being. Continue cautious diuresis and positive airway pressure therapy. Thank you. Pulmonary will continue to follow along with you. History of Present Illness Reason for Consultation: Acute hypoxia with multifocal infiltrates Attending Physician: Daisha Wheatley MD History of Present Illness 41-year-old female with a past medical history of diastolic heart failure, CAD, moderate to severe aortic stenosis, hepatitis C, hypertension and hyperlipidemia who presented to the hospital with shortness of breath. When I saw the patient was difficult to obtain a history given her need for BiPAP. She was also intermittently confused. She denied any hemoptysis or chest pain at that time. Collateral history is obtained from discussion with the hospitalist and review of the electronic medical record. She was on 70% FiO2 via BiPAP support when I saw her. Labs are significant for leukocytosis of 28,000. Procalcitonin 0.3. proBNP minimally elevated. CT chest without IV contrast significant for diffuse alveolar infiltrates and septal thickening. Lower extremity Doppler negative for DVT. She was started on doxycycline, cefepime and methylprednisone by the hospitalist service. She was ultimately moved to the ICU due to worsening respiratory status and altered mental status. Covid 19 testing negative on admission. CHRISTIAN screen from 2018 was negative. Allergies Allergy/AdvReac Type Severity Reaction Status Date / Time lidocaine Allergy Intermediate HIVES Verified 07/10/21 21:33 procaine Allergy Intermediate HIVES Verified 07/10/21 21:33 Penicillins Allergy Mild HAD NO Verified 07/10/21 21:33 PROBLEM WITH ZOSYN strawberry Allergy Mild HIVES Verified 07/10/21 21:33 cephalexin AdvReac Intermediate YEAST Verified 07/10/21 21:33 INFECTIONS tramadol AdvReac Intermediate SEIZURES Verified 07/10/21 21:33 azithromycin AdvReac Mild STOMACH Verified 07/10/21 21:33 PAIN Home Medications Medication Instructions Recorded Confirmed Type albuterol sulfate 2.5 mg INHALATION Q4 PRN 07/10/21 07/10/21 History albuterol sulfate 90 mcg/actuation 2 puff INHALATION Q4 PRN 07/10/21 07/10/21 History aerosol inhaler atorvastatin 80 mg tablet 80 mg PO DAILY 07/10/21 07/10/21 History benzonatate 100 mg capsule 100 mg PO TID PRN 07/10/21 07/10/21 History buprenorphine 8 mg-naloxone 2 mg 0.5 tab SUBLINGUAL TID 07/10/21 07/10/21 History sublingual tablet buspirone 15 mg tablet 15 mg PO BID 07/10/21 07/10/21 History clopidogrel 75 mg tablet 75 mg PO DAILY 07/10/21 07/10/21 History cyclobenzaprine 10 mg tablet 10 mg PO BID 07/10/21 07/10/21 History doxycycline hyclate 100 mg tablet 100 mg PO BID 07/10/21 07/10/21 History escitalopram oxalate 20 mg tablet 20 mg PO DAILY 07/10/21 07/10/21 History fluconazole 150 mg tablet 150 mg PO .ONE TIME DOSE 07/10/21 07/10/21 History glipizide 10 mg tablet 10 mg PO DAILY 07/10/21 07/10/21 History levetiracetam 500 mg tablet 500 mg PO BID 07/10/21 07/10/21 History lisinopril 5 mg tablet 2.5 mg PO DAILY 07/10/21 07/10/21 History loratadine 10 mg tablet 10 mg PO DAILY 07/10/21 07/10/21 History medroxyprogesterone 150 mg/mL 150 mg IM .Q3MO 07/10/21 07/10/21 History intramuscular suspension meloxicam 7.5 mg tablet 7.5 mg PO DAILY 07/10/21 07/10/21 History metformin 1,000 mg tablet 1,000 mg PO BID 07/10/21 07/10/21 History metoprolol succinate 25 mg 25 mg PO DAILY 07/10/21 07/10/21 History tablet,extended release 24 hr omeprazole 20 mg tablet,delayed 20 mg PO DAILY 07/10/21 07/10/21 History release polyethylene glycol 3350 17 gram 17 g PO DAILY PRN 07/10/21 07/10/21 History oral powder packet (Miralax) potassium chloride 20 mEq 20 meq PO DAILY 07/10/21 07/10/21 History tablet,extended release(part/cryst) (Klor-Con M) spironolactone 25 mg tablet 25 mg PO DAILY 07/10/21 07/10/21 History topiramate 25 mg tablet 25 mg PO BID 07/10/21 07/10/21 History torsemide 20 mg tablet 20 mg PO BID 07/10/21 07/10/21 History trazodone 50 mg tablet 25 - 50 mg PO HS 07/10/21 07/10/21 History Patient History Medical History (Updated 07/12/21 @ 15:43 by John Loaiza MD) Abnormal CT scan, chest Acute electrocardiogram changes Acute respiratory failure with hypoxia Aortic regurgitation Aortic stenosis Asthma Atypical chest pain Cannabis abuse Cellulitis of both lower extremities Chronic diastolic CHF (congestive heart failure) Coronary artery disease Depression Diabetes mellitus, type 2 Encounter for smoking cessation counseling GERD (gastroesophageal reflux disease) Gram negative sepsis Hepatitis C "Antibiotic screen positive, quantitative RNA positive 08/30/17" Hepatosplenomegaly History of drug abuse History of DVT (deep vein thrombosis) History of renal calculi Hypertension Hypocalcemia Opiate abuse, continuous Overdose Seizure disorder Surgical History History of cardiac cath 2017- 1 ROJAS to ramus, 2 ROJAS to L circumflex. 40-50% plaque to LAD 2018- distal disease (80%) within PDA History of carpal tunnel surgery History of lumbar spinal fusion Hx of tonsillectomy Status post cholecystectomy Family History Other Diabetes Heart disease Hypertension Kidney stones Seizures Social History Smoking Status: Heavy tobacco smoker Tobacco Type: Cigarettes Cigarettes Per Day: 10; Number of Years Since Quit: 31; Second Hand Exposure: Yes; Do You Dip or Chew Tobacco: No; Hx Alcohol Use: Yes Hx Substance Use: Yes (3 years drug free) Non-Prescribed Medications: Heroin, IV Drugs and Methamphetamines Last Used Substance: Unknown Last Used Substance Other:: 1.5 YEARS AGO Substance Use Type Other:: 1.5 years ago Preferred Language: Wallisian Communication Ability: Unable Visual Impairment: No Limitations Hearing Ability: Normal Binder Caser Required: No Beliefs That Will Affect Care: None marital status: Single Current Living Situation: Significant Other Current Living Situation Comment: LIVES WITH ROOMMATES How many Children do You have: 1 Feels Safe at Home: Yes Safety Concerns: Feels Safe At This Time Assistive Devices: BiPap Review of Systems Review of Systems: Unobtainable due to cognitive status Physical Exam Physical Exam: Constitutional: Anxious appearing female laying in bed. BiPAP mask in place. Eyes: Pupils are equal round and reactive to light. Conjunctivae are normal. Anicteric sclera. Ears nose, mouth and throat: BiPAP in place. Neck: Trachea is midline. Visual inspection is normal. Respiratory: Coarse crackles or rhonchi bilaterally. Cardiovascular: Regular rate and rhythm. No murmurs. No edema. Gastrointestinal: Normal bowel sounds, soft, nontender and nondistended. No hepatosplenomegaly noted. Musculoskeletal: No cyanosis. Patient is able to move all extremities. Skin: No rashes, warm dry and intact. Neurologic: No obvious focal neurological deficits seen. Psychiatric: Anxious. Results & Data Results & Data ([facility]) Vital Signs (Past 12 Hours) Vital Signs Temp Pulse Pulse Resp BP BP Pulse Ox 07/12/21 12:51 114 H 37 H 99 07/12/21 12:43 111 H 34 H 93 07/12/21 11:00 36.4 C L 137 H 155/76 H 98 07/12/21 08:14 36.5 C 110 H 24 142/88 H 98 07/12/21 07:29 110 H 110 H 32 H 94 07/12/21 07:22 114 H 07/12/21 03:51 36.7 C 104 H 20 145/83 H 93 07/12/21 03:11 113 H 30 H 97 07/12/21 01:58 111 H 168/92 H 07/12/21 01:35 38 H 95 PG Care Time/CCT Total # of Minutes Spent Total Time Spent with Patient: Total time spent is greater than 50% in coordination of care (as documented) at patient's floor/unit and/or counseling patient: Coding Level of Care Code 32020 Inpt Consult Level 4 Diagnoses Acute CHF (congestive heart failure) I50.9 Acute respiratory failure with hypoxia J96.01 Aortic stenosis I35.[address] scan, chest R93.89
[2021-07-12 18:07] LABS: Amphetamines+Metham, Urine Neg (Neg); Barbiturates, Urine Neg (Neg); Benzodiazepine, Urine Neg (Neg); Cocaine, Urine Neg (Neg); MDMA (Ecstacy), Urine Neg (Neg); Methadone, Urine Neg (Neg); Opiate, Urine Pos (Neg); Phencyclidine, Urine Neg (Neg)
--- NOTE | 2021-07-12 18:55 | Critical Care Consultation ---
Date of Consultation July 12, 2021 Assessment & Plan (1) Acute respiratory failure with hypoxia: Reason Critically Ill: 41-year-old female with acute hypoxic respiratory failure PLAN: Neuro: Mood disorder -Escitalopram 20 mg daily -Topamax 25 mg twice daily Chronic pain History of substance abuse on Suboxone therapy -continue Suboxone Seizure disorder -Keppra 500 mg twice daily Resp: Acute hypoxic respiratory failure -reviewed pulmonary consultation -Continue antibiotics and positive pressure ventilation -Change Solu-Medrol to prednisone 40 mg -Albuterol and Atrovent nebulizers CV: Heart failure with preserved ejection fraction -reviewed cardiology consult Coronary artery disease -Lipitor 80 mg daily -Plavix 75 mg daily -Metoprolol succinate 25 mg daily Hypertension Bifid aortic valve/aortic stenosis Fluids/Renal: Diuresis with Lasix History of right-sided hydronephrosis -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 -Counseled to follow-up with urology for further evaluation ID: Possible pulmonary infection -Cefepime and doxycycline for community-acquired pathogens -Blood cultures pending -Ordered sputum culture if able to produce -Urine unremarkable GI/Nutrition: Home PPI use Heme: Chronic anemia -Near baseline Reported history of venous thromboembolic disease -reported finish course of anticoagulation DVT prophylaxis: Heparin 5000 units every 8 hours Endocrine: Elevated blood sugar: Diabetes mellitus -Hemoglobin A1c 7.1 ICU hyperglycemia protocol TSH within normal limits Vascular access: Peripheral IVs Code Status: Full code Disposition: ICU (2) Abnormal CT scan, chest: (3) Acute CHF (congestive heart failure): (4) Aortic stenosis: Supervising Physician Co-Signing Physician Notes I have personally spent 85 minutes of critical care time in the direct management of this patient. This is a life/limb threatening event. This includes time spent evaluating patient, direct bedside care, chart review, valorie cing orders, interpretation of diagnostic studies, discussion with consultants, patient, and/or family members regarding treatment decisions, as well as other required patient management activities. This time is exclusive of all separately billable procedures, and teaching time and separate from and in addition to any other critical care service time. History of Present Illness Reason for Consultation: Code purple: Acute hypoxic respiratory failure Requesting Physician: Daisha Wheatley MD Attending Physician: Daisha Wheatley MD History of Present Illness Patient is a 41-year-old female with multiple hospital admissions who presented on July 10 with worsening shortness of breath. She has a extensive past medical history. Chronic diastolic heart failure with preserved ejection fraction, coronary artery disease status post stenting, moderate to severe aortic stenosis from a bifid aortic valve, hypertension, hyperlipidemia, history of hepatitis C, diab etes type 2 on oral medications, lung disease which has been described as asthma or COPD, ongoing tobacco abuse, history of DVT status post oral anticoagulation, seizure disorder, mood disorder, chronic anemia, chronic pain on Suboxone, history of polysubstance abuse, history of respiratory failure requiring intubation. This morning patient became tachycardic and hypoxic which partially responded to noninvasive mechanical ventilation. Patient's mental status also somewhat seem to be altered or her affect is rather flat and she is not engaging very actively with questioning or commands. Did a chart review along with hospitalist medicine who had access to outpatient records. She has had at least 3 follow- ups with pulmonary medicine and has canceled those 3 appointments she has also had follow-up with urology and canceled 2 subsequent follow-up appointments. I believe the patient is rather noncompliant with outpatient follow-ups. Patient appeared to be in acute hypoxic respiratory failure presumptively secondary to flash pulmonary edema/CHF will treat accordingly and transferred to the ICU Allergies Allergy/AdvReac Type Severity Reaction Status Date / Time lidocaine Allergy Intermediate HIVES Verified 07/10/21 21:33 procaine Allergy Intermediate HIVES Verified 07/10/21 21:33 Penicillins Allergy Mild HAD NO Verified 07/10/21 21:33 PROBLEM WITH ZOSYN strawberry Allergy Mild HIVES Verified 07/10/21 21:33 cephalexin AdvReac Intermediate YEAST Verified 07/10/21 21:33 INFECTIONS tramadol AdvReac Intermediate SEIZURES Verified 07/10/21 21:33 azithromycin AdvReac Mild STOMACH Verified 07/10/21 21:33 PAIN Home Medications Medication Instructions Recorded Confirmed Type albuterol sulfate 2.5 mg INHALATION Q4 PRN 07/10/21 07/10/21 History albuterol sulfate 90 mcg/actuation 2 puff INHALATION Q4 PRN 07/10/21 07/10/21 History aerosol inhaler atorvastatin 80 mg tablet 80 mg PO DAILY 07/10/21 07/10/21 History benzonatate 100 mg capsule 100 mg PO TID PRN 07/10/21 07/10/21 History buprenorphine 8 mg-naloxone 2 mg 0.5 tab SUBLINGUAL TID 07/10/21 07/10/21 History sublingual tablet buspirone 15 mg tablet 15 mg PO BID 07/10/21 07/10/21 History clopidogrel 75 mg tablet 75 mg PO DAILY 07/10/21 07/10/21 History cyclobenzaprine 10 mg tablet 10 mg PO BID 07/10/21 07/10/21 History doxycycline hyclate 100 mg tablet 100 mg PO BID 07/10/21 07/10/21 History escitalopram oxalate 20 mg tablet 20 mg PO DAILY 07/10/21 07/10/21 History fluconazole 150 mg tablet 150 mg PO .ONE TIME DOSE 07/10/21 07/10/21 History glipizide 10 mg tablet 10 mg PO DAILY 07/10/21 07/10/21 History levetiracetam 500 mg tablet 500 mg PO BID 07/10/21 07/10/21 History lisinopril 5 mg tablet 2.5 mg PO DAILY 07/10/21 07/10/21 History loratadine 10 mg tablet 10 mg PO DAILY 07/10/21 07/10/21 History medroxyprogesterone 150 mg/mL 150 mg IM .Q3MO 07/10/21 07/10/21 History intramuscular suspension meloxicam 7.5 mg tablet 7.5 mg PO DAILY 07/10/21 07/10/21 History metformin 1,000 mg tablet 1,000 mg PO BID 07/10/21 07/10/21 History metoprolol succinate 25 mg 25 mg PO DAILY 07/10/21 07/10/21 History tablet,extended release 24 hr omeprazole 20 mg tablet,delayed 20 mg PO DAILY 07/10/21 07/10/21 History release polyethylene glycol 3350 17 gram 17 g PO DAILY PRN 07/10/21 07/10/21 History oral powder packet (Miralax) potassium chloride 20 mEq 20 meq PO DAILY 07/10/21 07/10/21 History tablet,extended release(part/cryst) (Klor-Con M) spironolactone 25 mg tablet 25 mg PO DAILY 07/10/21 07/10/21 History topiramate 25 mg tablet 25 mg PO BID 07/10/21 07/10/21 History torsemide 20 mg tablet 20 mg PO BID 07/10/21 07/10/21 History trazodone 50 mg tablet 25 - 50 mg PO HS 07/10/21 07/10/21 History Patient History Medical History Abnormal CT scan, chest Acute electrocardiogram changes Acute respiratory failure with hypoxia Aortic regurgitation Aortic stenosis Asthma Atypical chest pain Cannabis abuse Cellulitis of both lower extremities Chronic diastolic CHF (congestive heart failure) Coronary artery disease Depression Diabetes mellitus, type 2 Encounter for smoking cessation counseling GERD (gastroesophageal reflux disease) Gram negative sepsis Hepatitis C "Antibiotic screen positive, quantitative RNA positive 08/30/17" Hepatosplenomegaly History of drug abuse History of DVT (deep vein thrombosis) History of renal calculi Hypertension Hypocalcemia Opiate abuse, continuous Overdose Seizure disorder Surgical History History of cardiac cath 2017- 1 ROJAS to ramus, 2 ROJAS to L circumflex. 40-50% plaque to LAD 2018- distal disease (80%) within PDA History of carpal tunnel surgery History of lumbar spinal fusion Hx of tonsillectomy Status post cholecystectomy Family History Other Diabetes Heart disease Hypertension Kidney stones Seizures Social History Smoking Status: Heavy tobacco smoker Tobacco Type: Cigarettes Cigarettes Per Day: 10; Number of Years Since Quit: 31; Second Hand Exposure: Yes; Do You Dip or Chew Tobacco: No; Hx Alcohol Use: Yes Hx Substance Use: Yes (3 years drug free) Non-Prescribed Medications: Heroin, IV Drugs and Methamphetamines Last Used Substance: Unknown Last Used Substance Other:: 1.5 YEARS AGO Substance Use Type Other:: 1.5 years ago Preferred Language: Spanish Communication Ability: Unable Visual Impairment: No Limitations Hearing Ability: Normal Quality Assurance Project Manager Required: No Beliefs That Will Affect Care: None marital status: Single Current Living Situation: Significant Other Current Living Situation Comment: LIVES WITH ROOMMATES How many Children do You have: 1 Feels Safe at Home: Yes Safety Concerns: Feels Safe At This Time Assistive Devices: BiPap Physical Exam Physical Exam: General: Alert. Moderate distress Skin: Cool, mild diaphoresis Head: Atraumatic Ears, nose, mouth and throat: BiPAP mask in place Cardiovascular: Decreased peripheral perfusion Respiratory: Moderate tachypnea Gastrointestinal: Non distended Musculoskeletal: No deformity Results & Data Results & Data ([facility]) Vital Signs (Past 12 Hours) Vital Signs Temp Pulse Pulse Resp BP BP Pulse Ox 07/12/21 18:00 123 H 25 H 139/73 98 07/12/21 17:00 131 H 41 H 144/90 H 98 07/12/21 16:54 130 H 36 H 96 07/12/21 16:00 115 H 38 H 155/87 H 89 L 07/12/21 15:00 118 H 38 H 145/80 H 93 07/12/21 14:30 121 H 38 H 94 07/12/21 14:15 121 H 35 H 92 07/12/21 14:00 116 H 32 H 141/90 H 89 L 07/12/21 13:45 115 H 35 H 92 07/12/21 13:30 108 H 33 H 91 07/12/21 13:15 113 H 41 H 90 07/12/21 13:00 118 H 26 H 146/88 H 100 07/12/21 12:51 114 H 37 H 99 07/12/21 12:46 115 H 35 H 138/82 07/12/21 12:45 121 H 28 H 07/12/21 12:43 111 H 34 H 93 07/12/21 12:40 111 H 07/12/21 12:15 119 H 2 L 07/12/21 11:00 36.4 C L 137 H 155/76 H 98 07/12/21 08:14 36.5 C 110 H 24 142/88 H 98 07/12/21 07:29 110 H 110 H 32 H 94 07/12/21 07:22 114 H Critical Care Results & Data Vital Signs (Past 12 Hours) Vital Signs Temp Pulse Pulse Resp BP BP Pulse Ox 07/12/21 18:00 123 H 25 H 139/73 98 07/12/21 17:00 131 H 41 H 144/90 H 98 07/12/21 16:54 130 H 36 H 96 07/12/21 16:00 115 H 38 H 155/87 H 89 L 07/12/21 15:00 118 H 38 H 145/80 H 93 07/12/21 14:30 121 H 38 H 94 07/12/21 14:15 121 H 35 H 92 07/12/21 14:00 116 H 32 H 141/90 H 89 L 07/12/21 13:45 115 H 35 H 92 07/12/21 13:30 108 H 33 H 91 07/12/21 13:15 113 H 41 H 90 07/12/21 13:00 118 H 26 H 146/88 H 100 07/12/21 12:51 114 H 37 H 99 07/12/21 12:46 115 H 35 H 138/82 07/12/21 12:45 121 H 28 H 07/12/21 12:43 111 H 34 H 93 07/12/21 12:40 111 H 07/12/21 12:15 119 H 2 L 07/12/21 11:00 36.4 C L 137 H 155/76 H 98 07/12/21 08:14 36.5 C 110 H 24 142/88 H 98 07/12/21 07:29 110 H 110 H 32 H 94 07/12/21 07:22 114 H Lab & Micro Results (Past 24 Hours) RBC 4.04 M/uL (4.2-5.4) L 07/12/21 WBC 28.82 K/uL (4.8-10.8) H 07/12/21 Hgb 11.3 g/dL (12.0-16.0) L 07/12/21 Hct 34.3 % (37-47) L 07/12/21 MCV 84.9 fL (80-100) 07/12/21 MCH 28.0 pg (25-34) 07/12/21 MCHC 32.9 g/dL (32-36) 07/12/21 RDW Standard Deviation 55.3 fL (36.4-46.3) H 07/12/21 RDW Coefficient of Variation 17.7 % (11.5-14.5) H 07/12/21 Plt Count 319 K/uL (130-400) 07/12/21 MPV 9.8 fL (7.4-10.4) 07/12/21 Neutrophils (%) (Auto) 93.7 % 07/12/21 Lymphocytes (%) (Auto) 2.8 % 07/12/21 Monocytes # (Auto) 0.84 K/uL (0.11-0.59) H 07/12/21 Eosinophils # (Auto) 0.01 K/uL (0-0.5) 07/12/21 Immature Granulocyte % (Auto) 0.6 % 07/12/21 Neutrophils # (Auto) 26.97 K/uL (1.4-6.5) H 07/12/21 Lymphocytes # (Auto) 0.82 K/uL (1.2-3.4) L 07/12/21 Monocytes # (Auto) 0.84 K/uL (0.11-0.59) H 07/12/21 Eosinophils # (Auto) 0.01 K/uL (0-0.5) 07/12/21 Basophils # (Auto) 0.01 K/uL (0-0.2) 07/12/21 Immature Granulocyte # (Auto) 0.17 K/uL (0.00-0.02) H 07/12/21 Na 136 mmol/L (136-145) 07/12/21 K 4.3 mmol/L (3.5-5.1) 07/12/21 Cl 108 mmol/L (98-107) H 07/12/21 CO2 22 mmol/L (21-32) 07/12/21 Anion Gap 6 (3-11) 07/12/21 BUN 23 mg/dl (6-23) 07/12/21 Creatinine 0.93 mg/dl (0.6-1.2) 07/12/21 Estimated GFR ( Amer) 87.2 ml/min 07/12/21 Estimated GFR (Non-Af Amer) 75.3 ml/min 07/12/21 BUN/Creatinine Ratio 24.7 (10-20) H 07/12/21 Glu 209 mg/dl (70-99(Fasting)) H 07/12/21 Ca 8.5 mg/dl (8.5-10.1) 07/12/21 Mg 2.3 mg/dl (1.7-2.4) 07/12/21 05:58 07/12/21 Calcium Level 8.5 mg/dl (8.5-10.1) 07/12/21 05:58 07/12/21 Blood Gas Barometric Pressure 734.9 mm/Hg 07/12/21 11:00 07/12/21 Arterial Blood pH 7.35 (7.35-7.45) 07/12/21 11:00 07/12/21 Arterial Blood Partial Pressure CO2 44 mmHg (35-46) 07/12/21 11:00 07/12/21 Arterial Blood Partial Pressure O2 133 mmHg (80-95) H 07/12/21 11:00 07/12/21 Arterial Blood HCO3 23 mmol/L (19-24) 07/12/21 11:00 07/12/21 Arterial Blood Base Excess -2.3 mEq/L (-9-1.8) 07/12/21 11:00 07/12/21 Arterial Blood Oxygen Saturation 99.0 % (90-95) H 07/12/21 11:00 07/12/21 Blood Gas Oxygen Given 70% 07/12/21 11:00 07/12/21 Caesar Test Pos (Pos) 07/12/21 11:00 07/12/21 Blood Gas Barometric Pressure 734.9 mm/Hg 07/12/21 11:00 07/12/21 Microbiology 07/10/21 20:00 Aerobic Blood Culture - Preliminary Blood No growth in Aerobic bottle after 24 hours. Anaerobic Blood Culture - Final 07/10/21 19:35 Aerobic Blood Culture - Preliminary Blood No growth in Aerobic bottle after 24 hours. Anaerobic Blood Culture - Preliminary No growth in Anaerobic bottle after 24 hours. Diagnostic Findings (Past 24 Hours) Chest X-Ray 07/12/21 00:57 SINGLE VIEW CHEST CLINICAL HISTORY: Hypoxia FINDINGS: An AP, portable, upright chest radiograph is compared to chest x-ray dated 07/11/2021 and correlated with chest CT dated 07/10/2021. The heart is enlarged. There is pulmonary vascular congestion. Multifocal airspace opacities are again seen throughout both lungs. This has increased from yesterday. Small pleural effusions are suspected. No pneumothorax is identified. The bony thorax is grossly intact. IMPRESSION: 1. Cardiomegaly with pulmonary vascular congestion. 2. Extensive/diffuse multifocal airspace opacities have increased from yesterday. This could represent pulmonary edema and/or multifocal pneumonia. Clinical correlation will be required and radiographic follow-up to resolution is recommended. 3. Suspect small pleural effusions. ACT 112: Negative or not required by law. Electronically signed by: Ja Villanueva M.D. 07/12/2021 7:13 AM I & O Totals 24 Hours 07/11/21 07/12/21 07/13/21 06:59 06:59 06:59 Intake Total 960 / 960 530 / 530 215 / 215 Output Total 1900 / 1900 1150 / 1150 Balance 959 / 959 -1370 / -1370 -935 / -935 Cumulative 07/10/21 18:20 thru 07/12/21 18:00 Intake Total 1705 Output Total 3051 Balance -1346 RT Ventilator Mngmt (Last Documented) Ventilator Ordered Settings Respiratory Rate 25 07/12/21 18:00 Fraction of Inspired Oxygen 70 07/12/21 12:51 Ventilator - PT Measurements Respiratory Rate 25 Coding Level of Care Code Critical Care ea addt'l 30 min Diagnoses Acute respiratory failure with hypoxia J96.[address] scan, chest R93.89 Acute CHF (congestive heart failure) I50.9 Aortic stenosis I35.0
[2021-07-12] MEDS: predniSONE 20 MG TAB PO SCH (19:11)
[2021-07-12] MEDS: METOPROLOL TARTRATE 1 MG/ML VIAL IV SCH ×2 (19:33→23:28)
[2021-07-13] MEDS: LEVALBUTEROL 1.25MG/0.5ML NEB INH SCH ×4 (00:24→19:18)
[2021-07-13] MEDS: IPRATROPIUM BROMIDE NEB SOLN 0.02% 2.5 ML VIAL INH SCH ×4 (00:24→19:18)
[2021-07-13] MEDS: METOPROLOL TARTRATE 1 MG/ML VIAL IV SCH ×2 (03:45→08:35)
[2021-07-13 05:06] LABS: Mean Corpuscular Hemoglobin 27.4 pg (25-34); Mean Corpuscular Hgb Conc 32.4 g/dL (32-36); Mean Corpuscular Volume 84.8 fL (80-100); Mean Platelet Volume 9.8 fL (7.4-10.4); Platelet Count 342 K/uL (130-400); RDW Coefficient of Variation 17.6 % (11.5-14.5); RDW Standard Deviation 54.4 fL (36.4-46.3); Red Blood Count 4.01 M/uL (4.2-5.4); White Blood Count 21.18 K/uL (4.8-10.8)
[2021-07-13] MEDS: CEFEPIME 2,000 MG in SYRINGE 0 ML IV SCH ×3 (05:16→21:09)
[2021-07-13] MEDS: INSULIN ASPART PER UNIT SC SCH ×4 (05:16→23:09)
[2021-07-13] MEDS: HEPARIN SOD 5,000 UNIT/0.5 ML VIAL SQ SCH (05:17)
[2021-07-13 05:27] LABS: Albumin Level 3.9 gm/dl (3.4-5.0); BUN Creatinine Ratio 32.9 (10-20); Bilirubin Direct 0.2 mg/dl (0-0.2); Bilirubin,Total 0.7 mg/dl (0.2-1.0); Creatinine Clr Calc Pharmacy 94.7 ml/min; Est GFR (African American) 106.3 ml/min; Est GFR (Non-African American) 91.7 ml/min; Magnesium 2.1 mg/dl (1.7-2.4); Phosphorus 2.4 mg/dl (2.5-4.9); Potassium 3.9 mmol/L (3.5-5.1); Total Protein 7.2 gm/dl (6.0-8.3)
[2021-07-13] MEDS: BUPRENORPHINE/NALOXONE 8/2 MG TAB SL SCH ×3 (08:35→20:08)
[2021-07-13] MEDS: ATORVASTATIN 40 MG TAB PO SCH (08:39)
[2021-07-13] MEDS: ESCITALOPRAM OXALATE 20 MG TAB PO SCH (08:40)
[2021-07-13] MEDS: CLOPIDOGREL BISULFATE 75 MG TAB PO SCH (08:40)
[2021-07-13] MEDS: TOPIRAMATE 25 MG TAB PO SCH ×2 (08:40→20:01)
[2021-07-13] MEDS: predniSONE 20 MG TAB PO SCH (08:41)
[2021-07-13] MEDS: INSULIN GLARGINE SOLOSTAR 100 UNITS/ML 3 ML PEN SC SCH (08:41)
--- NOTE | 2021-07-13 09:30 | Critical Care Progress Note ---
Date of Service July 13, 2021 Assessment & Plan (1) Acute respiratory failure with hypoxia: Plan: Reason Critically Ill: 41-year-old female with acute hypoxic respiratory failure PLAN: Neuro: Mood disorder -Escitalopram 20 mg daily -Topamax 25 mg twice daily Chronic pain History of substance abuse on Suboxone therapy -continue Suboxone Seizure disorder -Keppra 500 mg twice daily Resp: Acute hypoxic respiratory failure -reviewed pulmonary consultation -Continue antibiotics and positive pressure ventilation -CHRISTIAN screen pending, Krystyna antibody pending -Change Solu-Medrol to prednisone 40 mg x 5 days -Albuterol and Atrovent nebulizers CV: Heart failure with preserved ejection fraction -reviewed cardiology consult Coronary artery disease -Lipitor 80 mg daily -Plavix 75 mg daily - Increase to Metoprolol succinate 5 mg daily Hypertension 0Bifid aortic valve/aortic stenosis Fluids/Renal: Diuresis with Bumex x1 History of right-sided hydronephrosis -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 -Counseled to follow-up with urology for further evaluation ID: Possible pulmonary infection -Cefepime and doxycycline for community-acquired pathogens x 7days -Blood cultures no growth to date -Ordered sputum culture if able to produce -Urine unremarkable GI/Nutrition: Home PPI use Heme: Chronic anemia -Near baseline Reported history of venous thromboembolic disease -reported finish course of anticoagulation DVT prophylaxis: Lovneox 40 daily Endocrine: Elevated blood sugar: Diabetes mellitus -Hemoglobin A1c 7.1 ICU hyperglycemia protocol TSH within normal limits Vascular access: Peripheral IVs Code Status: Full code Disposition: ICU Patient has multiple chronic issues that would greatly benefit from outpatient follow-up when not in acute exacerbations of illness. Cannot be completely certain that this is driven totally by a cardiac etiology or if there is underlying pulmonary disease or if this represents a combination of multiple etiologies. She is continuing to improve however, would certainly benefit from outpatient follow-ups. If she is unable to complete outpatient follow-ups may necessitate further invasive evaluation while in the hospital hopefully to prevent recurrent readmissions for exacerbations which she appears to be prone to (2) Abnormal CT scan, chest: (3) Acute CHF (congestive heart failure): (4) Aortic stenosis: Admission and Anticipated Discharge Date Admission Date: July 10, 2021 Supervising Physician Co-Signing Physician Notes I have personally spent 35 minutes of critical care time in the direct management of this patient. This is a life/limb threatening event. This includes time spent evaluating patient, direct bedside care, chart review, placing orders, interpretation of diagnostic studies, discussion with consultants, patient, and/or family members regarding treatment decisions, as well as other required patient management activities. This time is exclusive of all separately billable procedures, and teaching time and separate from and in addition to any other critical care service time. Physical Exam Physical Exam: General: Alert. No acute distress Skin: Warm dry Head: Atraumatic Ears, nose, mouth and throat: BiPAP mask in place Cardiovascular: Normal peripheral perfusion Respiratory: mild tachypnea Gastrointestinal: Non distended Musculoskeletal: No deformity Results & Data Results & Data ([facility]) Vital Signs (Past 12 Hours) Vital Signs Temp Pulse Pulse Resp BP Pulse Ox 07/13/21 08:35 115 H 134/75 07/13/21 07:08 99 H 99 H 28 H 97 07/13/21 06:00 108 H 31 H 134/68 96 07/13/21 05:00 105 H 30 H 144/90 H 96 07/13/21 04:00 105 H 28 H 141/83 H 95 07/13/21 03:51 102 H 34 H 96 07/13/21 03:45 113 H 135/82 07/13/21 03:44 37.4 C 07/13/21 03:05 112 H 25 H 128/77 97 07/13/21 02:00 121 H 29 H 131/73 95 07/13/21 01:00 109 H 36 H 139/84 97 07/13/21 00:24 109 H 33 H 98 07/13/21 00:11 127 H 07/13/21 00:00 117 H 28 H 136/105 H 98 07/12/21 23:36 36.4 C L 07/12/21 23:28 127 H 149/83 H 07/12/21 23:00 126 H 28 H 149/83 H 95 07/12/21 22:33 125 H 38 H 97 07/12/21 22:00 129 H 32 H 137/91 95 Critical Care Results & Data Vital Signs (Past 12 Hours) Vital Signs Temp Pulse Pulse Resp BP Pulse Ox 07/13/21 09:00 99 H 31 H 144/86 H 96 07/13/21 08:35 115 H 134/75 07/13/21 08:00 36.9 C 113 H 28 H 134/75 96 07/13/21 07:08 99 H 99 H 28 H 97 07/13/21 06:00 108 H 31 H 134/68 96 07/13/21 05:00 105 H 30 H 144/90 H 96 07/13/21 04:00 105 H 28 H 141/83 H 95 07/13/21 03:51 102 H 34 H 96 07/13/21 03:45 113 H 135/82 07/13/21 03:44 37.4 C 07/13/21 03:05 112 H 25 H 128/77 97 07/13/21 02:00 121 H 29 H 131/73 95 07/13/21 01:00 109 H 36 H 139/84 97 07/13/21 00:24 109 H 33 H 98 07/13/21 00:11 127 H 07/13/21 00:00 117 H 28 H 136/105 H 98 07/12/21 23:36 36.4 C L 07/12/21 23:28 127 H 149/83 H 07/12/21 23:00 126 H 28 H 149/83 H 95 07/12/21 22:33 125 H 38 H 97 Lab & Micro Results (Past 24 Hours) RBC 4.01 M/uL (4.2-5.4) L 07/13/21 WBC 21.18 K/uL (4.8-10.8) H 07/13/21 Hgb 11.0 g/dL (12.0-16.0) L 07/13/21 Hct 34.0 % (37-47) L 07/13/21 MCV 84.8 fL (80-100) 07/13/21 MCH 27.4 pg (25-34) 07/13/21 MCHC 32.4 g/dL (32-36) 07/13/21 RDW Standard Deviation 54.4 fL (36.4-46.3) H 07/13/21 RDW Coefficient of Variation 17.6 % (11.5-14.5) H 07/13/21 Plt Count 342 K/uL (130-400) 07/13/21 MPV 9.8 fL (7.4-10.4) 07/13/21 Na 141 mmol/L (136-145) 07/13/21 K 3.9 mmol/L (3.5-5.1) 07/13/21 Cl 111 mmol/L (98-107) H 07/13/21 CO2 23 mmol/L (21-32) 07/13/21 Anion Gap 7 (3-11) 07/13/21 BUN 26 mg/dl (6-23) H 07/13/21 Creatinine 0.79 mg/dl (0.6-1.2) 07/13/21 Estimated GFR ( Amer) 106.3 ml/min 07/13/21 Estimated GFR (Non-Af Amer) 91.7 ml/min 07/13/21 BUN/Creatinine Ratio 32.9 (10-20) H 07/13/21 Glu 204 mg/dl (70-99(Fasting)) H 07/13/21 Ca 9.0 mg/dl (8.5-10.1) 07/13/21 Phosphorus Level 2.4 mg/dl (2.5-4.9) L 07/13/21 Total Bilirubin 0.7 mg/dl (0.2-1.0) 07/13/21 Direct Bilirubin 0.2 mg/dl (0-0.2) 07/13/21 AST 18 U/L (13-39) 07/13/21 ALT 17 U/L (7-52) 07/13/21 Alkaline Phosphatase 95 U/L (34-104) 07/13/21 TP 7.2 gm/dl (6.0-8.3) 07/13/21 Albumin 3.9 gm/dl (3.4-5.0) 07/13/21 Mg 2.1 mg/dl (1.7-2.4) 07/13/21 04:31 07/13/21 Calcium Level 9.0 mg/dl (8.5-10.1) 07/13/21 04:31 07/13/21 Microbiology 07/10/21 20:00 Aerobic Blood Culture - Preliminary Blood No growth in Aerobic bottle after 48 hours. Anaerobic Blood Culture - Final 07/10/21 19:35 Aerobic Blood Culture - Preliminary Blood No growth in Aerobic bottle after 48 hours. Anaerobic Blood Culture - Preliminary No growth in Anaerobic bottle after 48 hours. I & O Totals 24 Hours 07/12/21 07/13/21 07/14/21 06:59 06:59 06:59 Intake Total 530 / 530 430 / 430 Output Total 1900 / 1900 2705 / 2705 Balance -1370 / -1370 -2275 / -2275 Cumulative 07/10/21 18:20 thru 07/13/21 06:27 Intake Total 1920 Output Total 4606 Balance -2686 RT Ventilator Mngmt (Last Documented) Ventilator Ordered Settings Respiratory Rate 31 07/13/21 09:00 Fraction of Inspired Oxygen 30 07/13/21 09:00 Ventilator - PT Measurements Respiratory Rate 31 Coding Level of Care Code Critical Care 1st 30-74 mins Diagnoses Acute respiratory failure with hypoxia J96.[address] scan, chest R93.89 Acute CHF (congestive heart failure) I50.9 Aortic stenosis I35.0
--- NOTE | 2021-07-13 09:34 | Cardiology Progress Note ---
Date of Service July 13, 2021 Assessment & Plan (1) Respiratory failure: (2) Elevated troponin I level: (3) Acute respiratory distress: (4) Tachycardia: (5) CHF (congestive heart failure): (6) Aortic stenosis: (7) ASCVD (arteriosclerotic cardiovascular disease): Plan: Admission with acute hypoxemic respiratory failure complicated by mild acute decompensated diastolic congestive heart failure, underlying mixed valvular heart disease. Minimally elevated troponin secondary to the significant critical illness, acute pulmonary exacerbation, tachycardia, decompensation. Volume status appears normovolemic to mildly hypovolemic. Recommend continuation of metoprolol, antiplatelet therapy, and statin. Will need to reassess aortic valve status following hospitalization, when compensated from both pulmonary and cardiac standpoint, once heart rate is adequately controlled. Please contact will any questions. Admission and Anticipated Discharge Date Admission Date: July 10, 2021 Supervising Physician Co-Signing Physician Notes I have seen and examined the patient. I reviewed the medical record and dis cussed the case with Mr. Sierra. I agree with the plan as outlined above. Subjective Patient seen, examined. Chart, medications, and telemetry reviewed. On BiPAP. Seems more alert. When asked about pain she shakes her head 'no.' When asked if her breathing has improved she gives a 'thumbs up.' I/O's: -2,686 mL's overall Telemetry: Sinus tachycardia with rare short runs of SVT/PAT. July 11, 2021 TTE Interpretation Summary ([facility], Dr. Robertson): Normal size LV. Normal LV systolic function. EF 50-55%. Normal RV systolic function. Normal LA and RA size. Moderate aortic stenosis. Physical Exam Physical Exam: General: On BiPAP. HEENT: Normocephalic. Atraumatic. Mucous membranes are dry. Eyes: PER. Conjunctiva pink, sclera clear. Neck: No overt JVD. Heart: Regular at 110 bpm. Soft systolic ejection murmur. No diastolic murmur. No rub. Lungs: Decreased. Diminished. + Wheeze. + Rhonchi. Abdomen: +BS. Soft. Nontender. Extremities: No significant pretibial edema. No clubbing. No cyanosis. Pulses: Posterior tibial=1/4. Results & Data ([facility]) Vital Signs (Past 12 Hours) Vital Signs Temp Pulse Pulse Resp BP Pulse Ox 07/13/21 08:35 115 H 134/75 07/13/21 07:08 99 H 99 H 28 H 97 07/13/21 06:00 108 H 31 H 134/68 96 07/13/21 05:00 105 H 30 H 144/90 H 96 07/13/21 04:00 105 H 28 H 141/83 H 95 07/13/21 03:51 102 H 34 H 96 07/13/21 03:45 113 H 135/82 07/13/21 03:44 37.4 C 07/13/21 03:05 112 H 25 H 128/77 97 07/13/21 02:00 121 H 29 H 131/73 95 07/13/21 01:00 109 H 36 H 139/84 97 07/13/21 00:24 109 H 33 H 98 07/13/21 00:11 127 H 07/13/21 00:00 117 H 28 H 136/105 H 98 07/12/21 23:36 36.4 C L 07/12/21 23:28 127 H 149/83 H 07/12/21 23:00 126 H 28 H 149/83 H 95 07/12/21 22:33 125 H 38 H 97 07/12/21 22:00 129 H 32 H 137/91 95 Laboratory Results Laboratory Results - last 24 hr 07/12/21 07/12/21 07/12/21 05:58 11:00 11:00 WBC RBC Hgb Hct MCV MCH MCHC RDW Std Deviation RDW Coeff of Hannah Plt Count MPV ABG pH 7.35 ABG pCO2 44 ABG pO2 133 H ABG HCO3 23 ABG O2 Saturation 99.0 H ABG Base Excess -2.3 Caesar Test Pos Barometric Pressure 734.9 Oxygen Given 70% Sodium Potassium Chloride Carbon Dioxide Anion Gap BUN Creatinine Est Cr Clr Drug Dosing Est GFR ( Amer) Est GFR (Non-Af Amer) BUN/Creatinine Ratio Glucose POC Glucose 234 H Calcium Phosphorus Magnesium Total Bilirubin Direct Bilirubin AST ALT Alkaline Phosphatase Total Protein Albumin Lipase Urine Opiates Screen U Codeine Confrm GC/MS Ur Morphine (GC/MS) Ur Hydrocodone (GC/MS) Ur Norhydrocodone Ur Noroxycodone Urine Oxycodone (GC/MS) U Oxymorphone GC/MS Ur Methadone, Qual Ur Hydromorphone (GC/MS) Urine Barbiturates Ur Phencyclidine (PCP) U Amphetamin/Meth Scrn MDMA (Ecstasy) Screen U Benzodiazepines Scrn Ur Cocaine Metabolite U Marijuana (THC) Screen Drug Screen Comment CHRISTIAN Screen Pending HIV (1&2) Ag & Ab Conf Cancelled 07/12/21 07/12/21 07/12/21 17:00 17:00 18:13 WBC RBC Hgb Hct MCV MCH MCHC RDW Std Deviation RDW Coeff of Hannah Plt Count MPV ABG pH ABG pCO2 ABG pO2 ABG HCO3 ABG O2 Saturation ABG Base Excess Caesar Test Barometric Pressure Oxygen Given Sodium Potassium Chloride Carbon Dioxide Anion Gap BUN Creatinine Est Cr Clr Drug Dosing Est GFR ( Amer) Est GFR (Non-Af Amer) BUN/Creatinine Ratio Glucose POC Glucose 173 H Calcium Phosphorus Magnesium Total Bilirubin Direct Bilirubin AST ALT Alkaline Phosphatase Total Protein Albumin Lipase Urine Opiates Screen Pos H U Codeine Confrm GC/MS Pending Ur Morphine (GC/MS) Pending Ur Hydrocodone (GC/MS) Pending Ur Norhydrocodone Pending Ur Noroxycodone Pending Urine Oxycodone (GC/MS) Pending U Oxymorphone GC/MS Pending Ur Methadone, Qual Neg Ur Hydromorphone (GC/MS) Pending Urine Barbiturates Neg Ur Phencyclidine (PCP) Neg U Amphetamin/Meth Scrn Neg MDMA (Ecstasy) Screen Neg U Benzodiazepines Scrn Neg Ur Cocaine Metabolite Neg U Marijuana (THC) Screen Neg Drug Screen Comment Pending CHRISTIAN Screen HIV (1&2) Ag & Ab Conf 07/12/21 07/13/21 07/13/21 23:35 04:31 04:31 WBC RBC Hgb Hct MCV MCH MCHC RDW Std Deviation RDW Coeff of Hannah Plt Count MPV ABG pH ABG pCO2 ABG pO2 ABG HCO3 ABG O2 Saturation ABG Base Excess Caesar Test Barometric Pressure Oxygen Given Sodium 141 Potassium 3.9 Chloride 111 H Carbon Dioxide 23 Anion Gap 7 BUN 26 H Creatinine 0.79 Est Cr Clr Drug Dosing 94.7 Est GFR ( Amer) 106.3 Est GFR (Non-Af Amer) 91.7 BUN/Creatinine Ratio 32.9 H Glucose 204 H POC Glucose 213 H Calcium 9.0 Phosphorus 2.4 L Magnesium 2.1 Total Bilirubin 0.7 Direct Bilirubin 0.2 AST 18 ALT 17 Alkaline Phosphatase 95 Total Protein 7.2 Albumin 3.9 Lipase 23 Urine Opiates Screen U Codeine Confrm GC/MS Ur Morphine (GC/MS) Ur Hydrocodone (GC/MS) Ur Norhydrocodone Ur Noroxycodone Urine Oxycodone (GC/MS) U Oxymorphone GC/MS Ur Methadone, Qual Ur Hydromorphone (GC/MS) Urine Barbiturates Ur Phencyclidine (PCP) U Amphetamin/Meth Scrn MDMA (Ecstasy) Screen U Benzodiazepines Scrn Ur Cocaine Metabolite U Marijuana (THC) Screen Drug Screen Comment CHRISTIAN Screen HIV (1&2) Ag & Ab Conf Pending 07/13/21 07/13/21 04:31 05:10 WBC 21.18 H RBC 4.01 L Hgb 11.0 L Hct 34.0 L MCV 84.8 MCH 27.4 MCHC 32.4 RDW Std Deviation 54.4 H RDW Coeff of Hannah 17.6 H Plt Count 342 MPV 9.8 ABG pH ABG pCO2 ABG pO2 ABG HCO3 ABG O2 Saturation ABG Base Excess Caesar Test Barometric Pressure Oxygen Given Sodium Potassium Chloride Carbon Dioxide Anion Gap BUN Creatinine Est Cr Clr Drug Dosing Est GFR ( Amer) Est GFR (Non-Af Amer) BUN/Creatinine Ratio Glucose POC Glucose 208 H Calcium Phosphorus Magnesium Total Bilirubin Direct Bilirubin AST ALT Alkaline Phosphatase Total Protein Albumin Lipase Urine Opiates Screen U Codeine Confrm GC/MS Ur Morphine (GC/MS) Ur Hydrocodone (GC/MS) Ur Norhydrocodone Ur Noroxycodone Urine Oxycodone (GC/MS) U Oxymorphone GC/MS Ur Methadone, Qual Ur Hydromorphone (GC/MS) Urine Barbiturates Ur Phencyclidine (PCP) U Amphetamin/Meth Scrn MDMA (Ecstasy) Screen U Benzodiazepines Scrn Ur Cocaine Metabolite U Marijuana (THC) Screen Drug Screen Comment CHRISTIAN Screen HIV (1&2) Ag & Ab Conf (1) CHF (congestive heart failure) Heart failure chronicity: acute Heart failure type: unspecified Qualified Code(s): I50.9 - Heart failure, unspecified
[2021-07-13] MEDS ORDERED: BUMETANIDE 1 MG in SYRINGE 0 ML IV ONE (10:03)
[2021-07-13] MEDS ORDERED: POTASSIUM PHOS 3 MMOL/1 ML INFUSION IV STA (10:03)
[2021-07-13] MEDS ORDERED: POTASSIUM PHOSPHATE 21 MMOL in SODIUM CHLORIDE 0.9% 500 ML IV ONE (10:30)
[2021-07-13] MEDS: ENOXAPARIN INJ 40 MG/0.4 ML SYR SQ SCH (11:17)
[2021-07-13] MEDS: DOXYCYCLINE HYCLATE 100 MG in DEXTROSE 5% 100 ML IV SCH ×2 (11:18→22:56)
[2021-07-13] MEDS: levETIRAcetam 500 MG in 0.9 % SODIUM CHLORIDE 100 ML IV SCH (11:18)
[2021-07-13] MEDS: PANTOprazole 40 MG in SYRINGE 0 ML IV SCH (11:19)
[2021-07-13] MEDS ORDERED: INSULIN GLARGINE SOLOSTAR 100 UNITS/ML 3 ML PEN SC ONE (11:30)
--- NOTE | 2021-07-13 13:39 | Hospitalist Progress Note ---
Date of Service July 13, 2021 Assessment & Plan (1) Respiratory failure: Plan: Acute on chronic respiratory failure with Hypoxia Multifactorial:Asthma/COPD exacerbation, CAP, acute on chronic diastolic heart failure Severe sepsis SIRS plus ARF plus hypoxemia secondary to possible pneumonia -CXR:Cardiomegaly with pulmonary vascular congestion. Extensive/diffuse multifocal airspace opacities are similar to yesterday. -Venous Doppler: No sonographic evidence of deep venous thrombosis. -ECHO: EF 50 to 55%. Right ventricle systolic function is normal. Left atrium size is normal. Right atrial size is normal. Moderate valvular aortic stenosis. -Procalcitonin 0.71->0.30 -Blood Cx remain negative so far Cardiology on board. Patient has been getting diuresis Billing Spec/ICU board. Continue respiratory support. Currently on BiPAP Continue IV cefepime and doxycycline for now Acute Kidney Injury Cr:1.44->1.16->0.93>0.79 AJIT now resolved Lisinopril has been on hold CAD S/P Stent Mild troponin elevation--likely demand ischemia secondary to hypoxia Continue home medications Cardiology on board. Recommendations appreciated Hypertension Lisinopril held Continue metoprolol Hyperlipidemia On statin H/O HCV Not been treated Patient to f/u with [facility] outpatient DM II HbA1C: 7.1 Hold p.o. meds Continue insulin while hospitalized Monitor BGs Seizure disorder Keppra po H/O DVT Status post anticoagulation Chronic pain H/O polysubstance abuse Ongoing tobacco abuse On Suboxone Will provide more counselling once stabilized DVT Px: Heparin SQ Dispo : ICU Code Status Full Code Admission and Anticipated Discharge Date Admission Date: July 10, 2021 Subjective Patient seen and examined today. Patient on BiPAP. Patient more awake and interactive. Review of systems limited due to BiPAP. Patient able to answer yes or no to certain questions Physical Exam Constitutional: + obese; no acute distress Eyes: PERRL, conjunctivae normal, anicteric sclerae Respiratory: Mild tachypnea, on BiPAP, reduced breath sounds Cardiovascular: Rate/Rhythm: regular rate and regular rhythm S1-S2 Gastrointestinal (Abdomen): normal bowel sounds, soft, nontender, no hepatosplenomegaly Musculoskeletal: no cyanosis or clubbing, extremities motor strength 5/5 Neurologic: Awake and alert, interactive, moves extremities Results & Data Results & Data ([facility]) Vital Signs (Past 12 Hours) Vital Signs Temp Pulse Pulse Resp BP Pulse Ox 07/13/21 12:35 97 H 107 H 26 H 15 L 07/13/21 09:00 99 H 31 H 144/86 H 96 07/13/21 08:35 115 H 134/75 07/13/21 08:00 36.9 C 102 H 28 H 134/75 96 07/13/21 07:08 99 H 99 H 28 H 97 07/13/21 06:00 108 H 31 H 134/68 96 07/13/21 05:00 105 H 30 H 144/90 H 96 07/13/21 04:00 105 H 28 H 141/83 H 95 07/13/21 03:51 102 H 34 H 96 07/13/21 03:45 113 H 135/82 07/13/21 03:44 37.4 C 07/13/21 03:05 112 H 25 H 128/77 97 07/13/21 02:00 121 H 29 H 131/73 95 Laboratory Results Abnormal lab results 07/12/21 07/12/21 07/12/21 Range/Units 17:00 18:13 23:35 WBC (4.8-10.8) K/uL RBC (4.2-5.4) M/uL Hgb (12.0-16.0) g/dL Hct (37-47) % RDW Std Deviation (36.4-46.3) fL RDW Coeff of Hannah (11.5-14.5) % Chloride (98-107) mmol/L BUN (6-23) mg/dl BUN/Creatinine Ratio (10-20) Glucose (70-99(Fasting)) mg/dl POC Glucose 173 H 213 H (70-99) mg/dl Phosphorus (2.5-4.9) mg/dl Urine Opiates Screen Pos H (Neg) 07/13/21 07/13/21 07/13/21 Range/Units 04:31 04:31 05:10 WBC 21.18 H (4.8-10.8) K/uL RBC 4.01 L (4.2-5.4) M/uL Hgb 11.0 L (12.0-16.0) g/dL Hct 34.0 L (37-47) % RDW Std Deviation 54.4 H (36.4-46.3) fL RDW Coeff of Hannah 17.6 H (11.5-14.5) % Chloride 111 H (98-107) mmol/L BUN 26 H (6-23) mg/dl BUN/Creatinine Ratio 32.9 H (10-20) Glucose 204 H (70-99(Fasting)) mg/dl POC Glucose 208 H (70-99) mg/dl Phosphorus 2.4 L (2.5-4.9) mg/dl Urine Opiates Screen (Neg) 07/13/21 07/13/21 Range/Units 12:00 12:02 WBC (4.8-10.8) K/uL RBC (4.2-5.4) M/uL Hgb (12.0-16.0) g/dL Hct (37-47) % RDW Std Deviation (36.4-46.3) fL RDW Coeff of Hannah (11.5-14.5) % Chloride (98-107) mmol/L BUN (6-23) mg/dl BUN/Creatinine Ratio (10-20) Glucose (70-99(Fasting)) mg/dl POC Glucose 237 H 238 H (70-99) mg/dl Phosphorus (2.5-4.9) mg/dl Urine Opiates Screen (Neg)
--- NOTE | 2021-07-13 14:47 | Pulmonology Progress Note ---
Date of Service July 13, 2021 Assessment & Plan (1) Acute respiratory failure with hypoxia: (2) Abnormal CT scan, chest: (3) Acute CHF (congestive heart failure): (4) Aortic stenosis: Plan: 41-year-old female with history of aortic stenosis, diastolic CHF, obesity, opiate abuse, GERD and depression presenting to the hospital due to shortness of breath. Her CT chest findings and acute hypoxemic respiratory failure is likely multifactorial related to acute diastolic CHF, aortic stenosis and a possible element of multifocal pneumonia. Inflammatory lung disease difficult to rule out. Can consider bronchoscopy once respiratory status improved to evaluate inflammatory lung disease. Lung biopsy with VATS may also need to be considered in the future once cardiac status is optimized if she continues to have abnormal CT imaging and PFTs suggestive of ILD. No PFTs available for review as of yet. Unfortunately, medical compliance has been an issue in the past and she has had poor follow-up with her outpatient visits. Repeat chest x-ray ordered for tomorrow to see if diuresis has improved the infiltrates. Continue with prednisone therapy for the time being. CHRISTIAN screen pending. Rheumatoid factor, CHRISTIAN screen and glomerular basement membrane antibody negative in 2018. Urine drug screen largely unremarkable. No signs of renal disease at present. HIV screen pending. ESR/CRP/CK/Jo1 antibody/Aldolase ordered. Urine Legionella antigen and mycoplasma antibodies ordered as well. MRSA screen. Continue broad-spectrum antibiotics. Thank you. Pulmonary will continue to follow along with you. Admission and Anticipated Discharge Date Admission Date: July 10, 2021 Subjective Patient seen and examined. More alert today. I asked her if she is feeling short of breath and she gave me a thumbs up. Denies chest pain. No fevers or chills overnight. Currently on BiPAP, but transitioning to nasal cannula. Review of Systems Review of Systems: All systems reviewed & are unremarkable except as noted in HPI & below Physical Exam Physical Exam: Constitutional: No apparent distress. BiPAP mask in place. Eyes: Pupils are equal round and reactive to light. Conjunctivae are normal. Anicteric sclera. Ears nose, mouth and throat: BiPAP in place. Neck: Trachea is midline. Visual inspection is normal. Respiratory: Coarse crackles or rhonchi bilaterally. Cardiovascular: Regular rhythm. Tachycardic. No edema. Gastrointestinal: Normal bowel sounds, soft, nontender and nondistended. No hepatosplenomegaly noted. Musculoskeletal: No cyanosis. Patient is able to move all extremities. Skin: No rashes, warm dry and intact. Neurologic: No obvious focal neurological deficits seen. Psychiatric: Appears alert and awake. Difficult to determine orientation given BiPAP use. Results & Data Results & Data ([facility]) Vital Signs (Past 12 Hours) Vital Signs Temp Pulse Pulse Resp BP Pulse Ox 07/13/21 12:35 97 H 107 H 26 H 15 L 07/13/21 09:00 99 H 31 H 144/86 H 96 07/13/21 08:35 115 H 134/75 07/13/21 08:00 36.9 C 102 H 28 H 134/75 96 07/13/21 07:08 99 H 99 H 28 H 97 07/13/21 06:00 108 H 31 H 134/68 96 07/13/21 05:00 105 H 30 H 144/90 H 96 07/13/21 04:00 105 H 28 H 141/83 H 95 07/13/21 03:51 102 H 34 H 96 07/13/21 03:45 113 H 135/82 07/13/21 03:44 37.4 C 07/13/21 03:05 112 H 25 H 128/77 97 PG Care Time/CCT Total # of Minutes Spent Total Time Spent with Patient: Total time spent is greater than 50% in coordination of care (as documented) at patient's floor/unit and/or counseling patient: Coding Level of Care Code 39134 Subseq Hosp Care Lvl 3 Diagnoses Acute respiratory failure with hypoxia J96.[address] scan, chest R93.89 Acute CHF (congestive heart failure) I50.9 Aortic stenosis I35.0
[2021-07-13 15:53] LABS: C Reactive Protein 14.44 mg/dl (0-0.5)
[2021-07-13] MEDS ORDERED: ACETAMINOPHEN 325 MG TAB PO PRN (19:58)
[2021-07-13] MEDS: levETIRAcetam 500 MG TAB PO SCH (20:01)
[2021-07-13] MEDS ORDERED: METOPROLOL TARTRATE 1 MG/ML VIAL IV STA (21:51)
[2021-07-14] MEDS: LEVALBUTEROL 1.25MG/0.5ML NEB INH SCH ×4 (00:08→19:47)
[2021-07-14] MEDS: IPRATROPIUM BROMIDE NEB SOLN 0.02% 2.5 ML VIAL INH SCH ×4 (00:08→19:47)
[2021-07-14] MEDS: CEFEPIME 2,000 MG in SYRINGE 0 ML IV SCH ×2 (05:03→14:11)
[2021-07-14] MEDS: INSULIN ASPART PER UNIT SC SCH ×4 (05:04→21:04)
[2021-07-14 05:16] LABS: Hematocrit (blood only) 32.6 % (37-47); Hemoglobin 10.6 g/dL (12.0-16.0); Mean Corpuscular Hemoglobin 27.7 pg (25-34); Mean Corpuscular Hgb Conc 32.5 g/dL (32-36); Mean Corpuscular Volume 85.1 fL (80-100); Mean Platelet Volume 9.6 fL (7.4-10.4); Platelet Count 338 K/uL (130-400); RDW Coefficient of Variation 17.6 % (11.5-14.5); RDW Standard Deviation 55.3 fL (36.4-46.3); Red Blood Count 3.83 M/uL (4.2-5.4); White Blood Count 18.02 K/uL (4.8-10.8)
[2021-07-14 05:35] LABS: BUN Creatinine Ratio 29.1 (10-20); Calcium 9.2 mg/dl (8.5-10.1); Creatinine Clr Calc Pharmacy 73.7 ml/min; Est GFR (African American) 77.1 ml/min; Est GFR (Non-African American) 66.5 ml/min; Magnesium 2.2 mg/dl (1.7-2.4); Phosphorus 2.8 mg/dl (2.5-4.9); Potassium 3.7 mmol/L (3.5-5.1)
--- NOTE | 2021-07-14 08:43 | Pulmonology Progress Note ---
Date of Service July 14, 2021 Assessment & Plan (1) Acute respiratory failure with hypoxia: (2) Abnormal CT scan, chest: (3) Acute CHF (congestive heart failure): (4) Aortic stenosis: (5) Altered mental status, unspecified: Plan: 41-year-old female with history of aortic stenosis, diastolic CHF, obesity, opiate abuse, GERD and depression presenting to the hospital due to shortness of breath. Her CT chest findings and acute hypoxemic respiratory failure is likely multifactorial related to acute diastolic CHF, aortic stenosis and a possible element of multifocal pneumonia. Inflammatory lung disease difficult to rule out. Can consider bronchoscopy once respiratory status improved to evaluate inflammatory lung disease. Lung biopsy with VATS may also need to be considered in the future once cardiac status is optimized if she continues to have abnormal CT imaging and PFTs suggestive of ILD. No PFTs available for review as of yet. Unfortunately, medical compliance has been an issue in the past and she has had poor follow-up with her outpatient visits. Repeat CXR with improvement post diuresis. Continue with prednisone therapy for the time being. CHRISTIAN screen pending. Rheumatoid factor, CHRISTIAN screen and glomerular basement membrane antibody negative in 2018. Urine drug screen largely unremarkable. No signs of renal disease at present. HIV screen pending. ESR/CRP severely elevated. CK normal. JO1 antibody and aldolase pending. Urine Legionella antigen and mycoplasma antibodies ordered as well. Biofire ordered. MRSA screen negative. Continue broad-spectrum antibiotics. Patient with confusion today. ?Meningitis or encephalitis. Thank you. Pulmonary will continue to follow along with you. Admission and Anticipated Discharge Date Admission Date: July 10, 2021 Subjective Fever overnight. Confused today, but oxygen requirements improved significantly. hemodynamics stable. ROS limited given mental status. Physical Exam Physical Exam: Constitutional: No apparent distress. Eyes: Pupils are equal round and reactive to light. Conjunctivae are normal. Anicteric sclera. Ears nose, mouth and throat: No obvious deformities. Neck: Trachea is midline. Visual inspection is normal. Respiratory: Coarse crackles or rhonchi bilaterally. Cardiovascular: Regular rhythm. Tachycardic. No edema. Gastrointestinal: Normal bowel sounds, soft, nontender and nondistended. No hepatosplenomegaly noted. Musculoskeletal: No cyanosis. Patient is able to move all extremities. Skin: No rashes, warm dry and intact. Neurologic: No obvious focal neurological deficits seen. Psychiatric: Appears alert and awake. Confused Results & Data Results & Data ([facility]) Vital Signs (Past 12 Hours) Vital Signs Temp Pulse Pulse Resp BP BP Pulse Ox 07/14/21 07:37 37.1 C 111 H 22 142/81 H 95 07/14/21 07:26 112 H 20 97 07/14/21 06:00 110 H 22 109/61 95 07/14/21 05:20 121 H 27 H 91 07/14/21 05:10 115 H 29 H 100 07/14/21 05:00 114 H 28 H 102/79 96 07/14/21 04:50 107 H 30 H 96 07/14/21 04:40 107 H 29 H 96 07/14/21 04:30 106 H 31 H 96 07/14/21 04:22 37.8 C H 110 H 18 137/77 96 07/14/21 04:20 113 H 30 H 96 07/14/21 04:10 111 H 28 H 95 07/14/21 04:00 113 H 28 H 137/77 99 07/14/21 03:50 107 H 30 H 99 07/14/21 03:40 119 H 32 H 97 07/14/21 03:30 114 H 28 H 99 07/14/21 03:20 109 H 29 H 98 07/14/21 03:10 112 H 29 H 97 07/14/21 03:00 114 H 26 H 139/80 99 07/14/21 02:50 115 H 29 H 100 07/14/21 02:40 112 H 28 H 96 07/14/21 02:30 127 H 25 H 95 07/14/21 02:20 109 H 30 H 97 07/14/21 02:12 109 H 28 H 97 07/14/21 02:10 113 H 24 95 07/14/21 02:00 109 H 23 144/84 H 96 07/14/21 01:50 114 H 30 H 96 07/14/21 01:40 111 H 29 H 95 07/14/21 01:30 111 H 30 H 95 07/14/21 01:20 108 H 23 96 07/14/21 01:10 111 H 30 H 96 07/14/21 01:00 111 H 28 H 147/82 H 96 07/14/21 00:50 110 H 29 H 96 07/14/21 00:40 111 H 28 H 96 07/14/21 00:30 115 H 28 H 97 07/14/21 00:20 124 H 25 H 96 07/14/21 00:10 109 H 25 H 97 07/14/21 00:09 109 H 24 94 07/14/21 00:00 108 H 27 H 116/65 95 07/13/21 23:50 109 H 28 H 97 07/13/21 23:40 108 H 29 H 96 07/13/21 23:30 108 H 27 H 96 07/13/21 23:20 113 H 30 H 96 07/13/21 23:10 110 H 32 H 97 07/13/21 23:00 37.6 C H 108 H 28 H 147/83 H 97 07/13/21 22:50 113 H 24 98 07/13/21 22:48 109 H 07/13/21 22:40 111 H 28 H 97 07/13/21 22:30 112 H 28 H 96 07/13/21 22:20 112 H 32 H 97 07/13/21 22:13 116 H 27 H 96 07/13/21 22:10 112 H 21 95 07/13/21 22:00 114 H 27 H 118/58 L 93 07/13/21 21:50 136 H 24 89 L 07/13/21 21:40 109 H 44 H 94 07/13/21 21:30 106 H 31 H 96 07/13/21 21:20 105 H 28 H 93 07/13/21 21:10 110 H 25 H 96 07/13/21 21:00 108 H 27 H 147/72 H 96 07/13/21 20:50 107 H 30 H 94 PG Care Time/CCT Total # of Minutes Spent Total Time Spent with Patient: Total time spent is greater than 50% in coordination of care (as documented) at patient's floor/unit and/or counseling patient: Coding Level of Care Code 35028 Subseq Hosp Care Lvl 3 Diagnoses Acute respiratory failure with hypoxia J96.[address] scan, chest R93.89 Acute CHF (congestive heart failure) I50.9 Aortic stenosis I35.0 Altered mental status, unspecified R41.82
[2021-07-14] MEDS: ATORVASTATIN 40 MG TAB PO SCH (08:51)
[2021-07-14] MEDS: METOPROLOL SUCC 50MG EXT REL TAB PO SCH (08:51)
[2021-07-14] MEDS: PANTOprazole 40 MG TAB PO SCH (08:51)
[2021-07-14] MEDS: levETIRAcetam 500 MG TAB PO SCH ×2 (08:51→21:04)
[2021-07-14] MEDS: TOPIRAMATE 25 MG TAB PO SCH ×2 (08:51→21:04)
[2021-07-14] MEDS: ESCITALOPRAM OXALATE 20 MG TAB PO SCH (08:51)
[2021-07-14] MEDS: CLOPIDOGREL BISULFATE 75 MG TAB PO SCH (08:51)
[2021-07-14] MEDS: INSULIN GLARGINE SOLOSTAR 100 UNITS/ML 3 ML PEN SC SCH (08:52)
[2021-07-14] MEDS: ENOXAPARIN INJ 40 MG/0.4 ML SYR SQ SCH (08:52)
[2021-07-14] MEDS: BUPRENORPHINE/NALOXONE 8/2 MG TAB SL SCH ×2 (08:56→21:04)
[2021-07-14] MEDS: predniSONE 20 MG TAB PO SCH (08:57)
--- NOTE | 2021-07-14 09:01 | XRay Report ---
XR chest 1V portable CLINICAL HISTORY: Dyspnea TECHNIQUE: Single frontal radiograph of the chest was obtained. Comparison: Comparison is made to chest one view 07/12/2021 FINDINGS: No lines and tubes are seen. The cardiomediastinal silhouette is stable. Multifocal airspace opacitie s are improved from prior exam. No evidence of pleural effusion or pneumothorax. IMPRESSION: Multifocal airspace opacities, improved from prior exam, favored to represent improving alveolar danelle a and/or pneumonia. ACT 112: Negative or not required by law. Electronically signed by: Moi Ring M.D. 07/14/2021 9:00 AM
[2021-07-14] MEDS ORDERED: LORazepam 2 MG/1 ML VIAL IV PRN (09:21)
[2021-07-14] MEDS ORDERED: POTASSIUM CHLORIDE CRTAB 20 MEQ TABCR PO STA (09:26)
--- NOTE | 2021-07-14 09:31 | Critical Care Progress Note ---
Date of Service July 14, 2021 Assessment & Plan (1) Acute respiratory failure with hypoxia: Plan: Reason Critically Ill: 41-year-old female with acute hypoxic respiratory failure PLAN: Neuro: Mood disorder -Escitalopram 20 mg daily -Topamax 25 mg twice daily -I did not appreciate as much as confusion as documented in pulmonary consult, patient has been on several days of antibiotics I think a LP would be of minimal diagnostic accuracy at this time, will order MRI brain to rule out temporal horn lesions Chronic pain History of substance abuse on Suboxone therapy -decrease Suboxone from TID to BID given decreased mentation. ? aspects of withdrawal previously now requiring lower opiate dosing Seizure disorder -Keppra 500 mg twice daily Resp: Acute hypoxic respiratory failure: improved -reviewed pulmonary consultation -Continue antibiotics and positive pressure ventilation -CHRISTIAN screen pending, Krystyna antibody pending -Change Solu-Medrol to prednisone 40 mg x 5 days -Albuterol and Atrovent nebulizers CV: Heart failure with preserved ejection fraction -reviewed cardiology consult Coronary artery disease -Lipitor 80 mg daily -Plavix 75 mg daily - Metoprolol succinate 50 mg daily Hypertension Bifid aortic valve/aortic stenosis -Will be very beneficial to have outpatient follow-up when stabilized Fluids/Renal: -40 M EQ K-Dur x1 today History of right-sided hydronephrosis -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 -Counseled to follow-up with urology for further evaluation ID: Possible pulmonary infection -Cefepime and doxycycline for community-acquired pathogens x 7 days -Blood cultures no growth to date -Ordered sputum culture if able to produce -Urine unremarkable GI/Nutrition: Home PPI use Heme: Chronic anemia -Near baseline Reported history of venous thromboembolic disease -reported finish course of anticoagulation DVT prophylaxis: Lovneox 40 daily Endocrine: Elevated blood sugar: Diabetes mellitus -Hemoglobin A1c 7.1 ICU hyperglycemia protocol TSH within normal limits Vascular access: Peripheral IVs Code Status: Full code Disposition: ICU Patient has multiple chronic issues that would greatly benefit from outpatient follow-up when not in acute exacerbations of illness. Cannot be completely certain that this is driven totally by a cardiac etiology or if there is underlying pulmonary disease or if this represents a combination of multiple etiologies. She is continuing to improve however, would certainly benefit from outpatient follow-ups. If she is unable to complete outpatient follow-ups may necessitate further invasive evaluation while in the hospital hopefully to prevent recurrent readmissions for exacerbations which she appears to be prone to (2) Abnormal CT scan, chest: (3) Acute CHF (congestive heart failure): (4) Aortic stenosis: Dispo: stable for downgrade from ICU (2) Abnormal CT scan, chest: (3) Acute CHF (congestive heart failure): (4) Aortic stenosis: (5) Altered mental status, unspecified: Admission and Anticipated Discharge Date Admission Date: July 10, 2021 Subjective Low-grade temperature overnight, unclear significance. Patient denies being short of breath or having chest pain today. Hemodynamics have improved. Review of Systems Review of Systems: Denies chest pain denies shortness of breath Physical Exam Physical Exam: General: Alert. No acute distress Skin: Warm dry Head: Atraumatic Ears, nose, mouth and throat: Airway patent Cardiovascular: Normal peripheral perfusion Respiratory: mild tachypnea Gastrointestinal: Non distended Musculoskeletal: No deformity Results & Data Results & Data ([facility]) Vital Signs (Past 12 Hours) Vital Signs Temp Pulse Pulse Resp BP BP Pulse Ox 07/14/21 07:37 37.1 C 111 H 22 142/81 H 95 07/14/21 07:26 112 H 20 97 07/14/21 06:00 110 H 22 109/61 95 07/14/21 05:20 121 H 27 H 91 07/14/21 05:10 115 H 29 H 100 07/14/21 05:00 114 H 28 H 102/79 96 07/14/21 04:50 107 H 30 H 96 07/14/21 04:40 107 H 29 H 96 07/14/21 04:30 106 H 31 H 96 07/14/21 04:22 37.8 C H 110 H 18 137/77 96 07/14/21 04:20 113 H 30 H 96 07/14/21 04:10 111 H 28 H 95 07/14/21 04:00 113 H 28 H 137/77 99 07/14/21 03:50 107 H 30 H 99 07/14/21 03:40 119 H 32 H 97 07/14/21 03:30 114 H 28 H 99 07/14/21 03:20 109 H 29 H 98 07/14/21 03:10 112 H 29 H 97 07/14/21 03:00 114 H 26 H 139/80 99 07/14/21 02:50 115 H 29 H 100 07/14/21 02:40 112 H 28 H 96 07/14/21 02:30 127 H 25 H 95 07/14/21 02:20 109 H 30 H 97 07/14/21 02:12 109 H 28 H 97 07/14/21 02:10 113 H 24 95 07/14/21 02:00 109 H 23 144/84 H 96 07/14/21 01:50 114 H 30 H 96 07/14/21 01:40 111 H 29 H 95 07/14/21 01:30 111 H 30 H 95 07/14/21 01:20 108 H 23 96 07/14/21 01:10 111 H 30 H 96 07/14/21 01:00 111 H 28 H 147/82 H 96 07/14/21 00:50 110 H 29 H 96 07/14/21 00:40 111 H 28 H 96 07/14/21 00:30 115 H 28 H 97 07/14/21 00:20 124 H 25 H 96 07/14/21 00:10 109 H 25 H 97 07/14/21 00:09 109 H 24 94 07/14/21 00:00 108 H 27 H 116/65 95 07/13/21 23:50 109 H 28 H 97 07/13/21 23:40 108 H 29 H 96 07/13/21 23:30 108 H 27 H 96 07/13/21 23:20 113 H 30 H 96 07/13/21 23:10 110 H 32 H 97 07/13/21 23:00 37.6 C H 108 H 28 H 147/83 H 97 07/13/21 22:50 113 H 24 98 07/13/21 22:48 109 H 07/13/21 22:40 111 H 28 H 97 07/13/21 22:30 112 H 28 H 96 07/13/21 22:20 112 H 32 H 97 07/13/21 22:13 116 H 27 H 96 07/13/21 22:10 112 H 21 95 07/13/21 22:00 114 H 27 H 118/58 L 93 07/13/21 21:50 136 H 24 89 L 07/13/21 21:40 109 H 44 H 94 07/13/21 21:30 106 H 31 H 96 07/13/21 21:20 105 H 28 H 93 Critical Care Results & Data Vital Signs (Past 12 Hours) Vital Signs Temp Pulse Pulse Resp BP BP Pulse Ox 07/14/21 07:37 37.1 C 111 H 22 142/81 H 95 07/14/21 07:26 112 H 20 97 07/14/21 06:00 110 H 22 109/61 95 07/14/21 05:20 121 H 27 H 91 07/14/21 05:10 115 H 29 H 100 07/14/21 05:00 114 H 28 H 102/79 96 07/14/21 04:50 107 H 30 H 96 07/14/21 04:40 107 H 29 H 96 07/14/21 04:30 106 H 31 H 96 07/14/21 04:22 37.8 C H 110 H 18 137/77 96 07/14/21 04:20 113 H 30 H 96 07/14/21 04:10 111 H 28 H 95 07/14/21 04:00 113 H 28 H 137/77 99 07/14/21 03:50 107 H 30 H 99 07/14/21 03:40 119 H 32 H 97 07/14/21 03:30 114 H 28 H 99 07/14/21 03:20 109 H 29 H 98 07/14/21 03:10 112 H 29 H 97 07/14/21 03:00 114 H 26 H 139/80 99 07/14/21 02:50 115 H 29 H 100 07/14/21 02:40 112 H 28 H 96 07/14/21 02:30 127 H 25 H 95 07/14/21 02:20 109 H 30 H 97 07/14/21 02:12 109 H 28 H 97 07/14/21 02:10 113 H 24 95 07/14/21 02:00 109 H 23 144/84 H 96 07/14/21 01:50 114 H 30 H 96 07/14/21 01:40 111 H 29 H 95 07/14/21 01:30 111 H 30 H 95 07/14/21 01:20 108 H 23 96 07/14/21 01:10 111 H 30 H 96 07/14/21 01:00 111 H 28 H 147/82 H 96 07/14/21 00:50 110 H 29 H 96 07/14/21 00:40 111 H 28 H 96 07/14/21 00:30 115 H 28 H 97 07/14/21 00:20 124 H 25 H 96 07/14/21 00:10 109 H 25 H 97 07/14/21 00:09 109 H 24 94 07/14/21 00:00 108 H 27 H 116/65 95 07/13/21 23:50 109 H 28 H 97 07/13/21 23:40 108 H 29 H 96 07/13/21 23:30 108 H 27 H 96 07/13/21 23:20 113 H 30 H 96 07/13/21 23:10 110 H 32 H 97 07/13/21 23:00 37.6 C H 108 H 28 H 147/83 H 97 07/13/21 22:50 113 H 24 98 07/13/21 22:48 109 H 07/13/21 22:40 111 H 28 H 97 07/13/21 22:30 112 H 28 H 96 07/13/21 22:20 112 H 32 H 97 07/13/21 22:13 116 H 27 H 96 07/13/21 22:10 112 H 21 95 07/13/21 22:00 114 H 27 H 118/58 L 93 07/13/21 21:50 136 H 24 89 L 07/13/21 21:40 109 H 44 H 94 07/13/21 21:30 106 H 31 H 96 07/13/21 21:20 105 H 28 H 93 Lab & Micro Results (Past 24 Hours) RBC 3.83 M/uL (4.2-5.4) L 07/14/21 WBC 18.02 K/uL (4.8-10.8) H 07/14/21 Hgb 10.6 g/dL (12.0-16.0) L 07/14/21 Hct 32.6 % (37-47) L 07/14/21 MCV 85.1 fL (80-100) 07/14/21 MCH 27.7 pg (25-34) 07/14/21 MCHC 32.5 g/dL (32-36) 07/14/21 RDW Standard Deviation 55.3 fL (36.4-46.3) H 07/14/21 RDW Coefficient of Variation 17.6 % (11.5-14.5) H 07/14/21 Plt Count 338 K/uL (130-400) 07/14/21 MPV 9.6 fL (7.4-10.4) 07/14/21 Na 144 mmol/L (136-145) 07/14/21 K 3.7 mmol/L (3.5-5.1) 07/14/21 Cl 114 mmol/L (98-107) H 07/14/21 CO2 22 mmol/L (21-32) 07/14/21 Anion Gap 8 (3-11) 07/14/21 BUN 30 mg/dl (6-23) H 07/14/21 Creatinine 1.03 mg/dl (0.6-1.2) 07/14/21 Estimated GFR ( Amer) 77.1 ml/min 07/14/21 Estimated GFR (Non-Af Amer) 66.5 ml/min 07/14/21 BUN/Creatinine Ratio 29.1 (10-20) H 07/14/21 Glu 105 mg/dl (70-99(Fasting)) H 07/14/21 Ca 9.2 mg/dl (8.5-10.1) 07/14/21 Phosphorus Level 2.8 mg/dl (2.5-4.9) 07/14/21 Mg 2.2 mg/dl (1.7-2.4) 07/14/21 05:01 07/14/21 Calcium Level 9.2 mg/dl (8.5-10.1) 07/14/21 05:01 07/14/21 Diagnostic Findings (Past 24 Hours) Chest X-Ray 07/14/21 07:00 XR chest 1V portable CLINICAL HISTORY: Dyspnea TECHNIQUE: Single frontal radiograph of the chest was obtained. Comparison: Comparison is made to chest one view 07/12/2021 FINDINGS: No lines and tubes are seen. The cardiomediastinal silhouette is stable. Multifocal airspace opacities are improved from prior exam. No evidence of pleural effusion or pneumothorax. IMPRESSION: Multifocal airspace opacities, improved from prior exam, favored to represent improving alveolar edema and/or pneumonia. ACT 112: Negative or not required by law. Electronically signed by: Moi Ring M.D. 07/14/2021 9:00 AM I & O Totals 24 Hours 07/13/21 07/14/21 07/15/21 06:59 06:59 06:59 Intake Total 430 / 430 1032 / 1032 Output Total 2705 / 2705 1500 / 1500 Balance -2275 / -2275 -468 / -468 Cumulative 07/10/21 18:20 thru 07/14/21 04:00 Intake Total 2952 Output Total 6106 Balance -3154 RT Ventilator Mngmt (Last Documented) Ventilator Ordered Settings Respiratory Rate 22 07/14/21 07:37 Fraction of Inspired Oxygen 30 07/14/21 06:00 Ventilator - PT Measurements Respiratory Rate 22 Coding Level of Care Code 38245 Subseq [facility] 3 Diagnoses Acute respiratory failure with hypoxia J96.[address] scan, chest R93.89 Acute CHF (congestive heart failure) I50.9 Aortic stenosis I35.0 Altered mental status, unspecified R41.82
[2021-07-14 10:46] LABS: Anti Nuclear Antibody Screen NEGATIVE (NEGATIVE)
[2021-07-14 11:00] LABS: Adenovirus PCR Not Detected (NotDetected); Bordetella parapertussis PCR Not Detected (NotDetected); Bordetella pertussis PCR Not Detected (NotDetected); Chlamydia pneumoniae PCR Not Detected (NotDetected); Coronavirus 229E PCR Not Detected (NotDetected); Coronavirus CoV-2 (COVID19)PCR Not Detected (NotDetected); Coronavirus HKU1 PCR Not Detected (NotDetected); Coronavirus NL63 PCR Not Detected (NotDetected); Coronavirus OC43PCR Not Detected (NotDetected); Human Metapneumovirus PCR Not Detected (NotDetected); Influenza A PCR Not Detected (NotDetected); Influenza B PCR Not Detected (NotDetected); Mycoplasma pneumoniae PCR Not Detected (NotDetected); Parainfluenza Virus 1 PCR Not Detected (NotDetected); Parainfluenza Virus 2 PCR Not Detected (NotDetected); Parainfluenza Virus 3 PCR Not Detected (NotDetected); Parainfluenza Virus 4 PCR Not Detected (NotDetected); Respiratory Syncytial VirusPCR Not Detected (NotDetected); Rhinovirus/Enterovirus PCR Not Detected (NotDetected)
[2021-07-14] MEDS: DOXYCYCLINE HYCLATE 100 MG in DEXTROSE 5% 100 ML IV SCH (11:05)
[2021-07-14] MEDS ORDERED: METOPROLOL SUCC 25MG EXT REL TAB PO SCH (12:00)
--- NOTE | 2021-07-14 14:18 | XRay Report ---
KUB pre MRI CLINICAL HISTORY: mri clearance TECHNIQUE: 1 view of the abdomen was obtained. Comparison: None available at the time of this dictation. FINDINGS: Posterior fixation hardware is seen in the lumbar spine. Cholecystomy clips are seen. The osseous str uctures are grossly unremarkable. The bowel gas pattern is nonobstructive. A moderate amount of stool is noted within the large bowel. IMPRESSION: Nonobstructive bowel gas pattern. ACT 112: Negative or not required by law. Electronically signed by: Moi Ring M.D. 07/14/2021 2:17 PM
--- NOTE | 2021-07-14 14:20 | XRay Report ---
BONY ORBITS 2 VIEWS CLINICAL HISTORY: MRI clearance. FINDINGS: AP and crosstable lateral views of the bony orbits are obtained. There is no radiodense/me tallic foreign body seen in the region of the bony orbits. The bony orbits are intact as imaged. The visualized paranasal sinuses and the mastoid air cells appear clear. The imaged calvarium appears int act. The patient is edentulous. IMPRESSION: There is no radiodense/metallic foreign body seen in the region of the bony orbits. ACT 112: Negative or not required by law. Electronically signed by: Ja Villanueva M.D. 07/14/2021 2:19 PM
--- NOTE | 2021-07-14 16:48 | Hospitalist Progress Note ---
Date of Service July 14, 2021 Assessment & Plan (1) Respiratory failure: Plan: Acute on chronic respiratory failure with Hypoxia Multifactorial:Asthma/COPD exacerbation, CAP, acute on chronic diastolic heart failure Severe sepsis SIRS plus ARF plus hypoxemia secondary to possible pneumonia -CXR:Cardiomegaly with pulmonary vascular congestion. Extensive/diffuse multifocal airspace opacities are similar to yesterday. -Venous Doppler: No sonographic evidence of deep venous thrombosis. -ECHO: EF 50 to 55%. Right ventricle systolic function is normal. Left atrium size is normal. Right atrial size is normal. Moderate valvular aortic stenosis. -Procalcitonin 0.71->0.30 -Blood Cx remain negative so far Cardiology on board. Patient has been getting diuresis Peer Financial Counselor/ICU board. Continue respiratory support. Patient's respiratory status has improved. However, mental status has not improved Based on this and leukocytosis (was 28k on admission, improved to 18K) , Possibilities include meningitis/encephalitis/metabolic encephalopathy MRI brain did not show acute abnormalities UDS only positive for opioid (patient on suboxone and got morphine on day of test) Will change antibiotics to Ceftriaxone, vancomycin and acyclovir to cover for possible meningitis/encephalitis Discussed with [employer]. Though LP is delayed, Will plan to obtain LP if possible Acute Kidney Injury Cr:1.44->1.16->0.93>0.79>1.03 AJIT now resolved Lisinopril has been on hold CAD S/P Stent Mild troponin elevation--likely demand ischemia secondary to hypoxia Continue home medications Cardiology on board. Recommendations appreciated Hypertension Lisinopril held Continue metoprolol Hyperlipidemia On statin H/O HCV Not been treated Patient to f/u with [facility] outpatient DM II HbA1C: 7.1 Hold p.o. meds Continue insulin while hospitalized Monitor BGs Seizure disorder On keppra H/O DVT Status post anticoagulation Chronic pain H/O polysubstance abuse Ongoing tobacco abuse On Suboxone Will provide more counselling once stabilized DVT Px: Heparin SQ Dispo : PCU Code Status Full Code Admission and Anticipated Discharge Date Admission Date: July 10, 2021 Subjective Patient seen and examined today. Was on BIPAP as she was sleeping. Even when it was taken off briefly to nasal cannula, patient was not answering questions appropriately Patient is lethargic, confused, only able to tell me her name but could not answer other questions Not in respiratory distress. RN reports she has been confused all day. Able to take her meds when prompted, occasionally answers questions Review of systems limited due to this Physical Exam Constitutional: + obese; no acute distress Eyes: PERRL, conjunctivae normal, anicteric sclerae ENMT: external ear and nose normal, oropharynx normal Respiratory: Not in resp distress Cardiovascular: Rate/Rhythm: regular rate and regular rhythm S1 S2 Gastrointestinal (Abdomen): normal bowel sounds, soft, nontender, no hepatosplenomegaly Musculoskeletal: no cyanosis or clubbing, extremities motor strength 5/5 Neurologic: Confused, lethargic, was able to tell me her name when asked but nothing else Moves all extremities spontaneously. Not following commands Results & Data Results & Data ([facility]) Vital Signs (Past 12 Hours) Vital Signs Temp Pulse Pulse Resp BP BP Pulse Ox 07/14/21 16:38 37.1 C 114 H 20 170/89 H 100 07/14/21 15:16 100 H 07/14/21 13:18 104 H 101 H 22 94 07/14/21 11:13 37.1 C 111 H 24 140/78 91 07/14/21 08:00 124 H 07/14/21 07:37 37.1 C 111 H 22 142/81 H 95 07/14/21 07:26 112 H 20 97 07/14/21 06:00 110 H 22 109/61 95 07/14/21 05:20 121 H 27 H 91 07/14/21 05:10 115 H 29 H 100 07/14/21 05:00 114 H 28 H 102/79 96 07/14/21 04:50 107 H 30 H 96 Laboratory Results Abnormal lab results 07/13/21 07/14/21 07/14/21 Range/Units 23:02 05:00 05:01 WBC 18.02 H (4.8-10.8) K/uL RBC 3.83 L (4.2-5.4) M/uL Hgb 10.6 L (12.0-16.0) g/dL Hct 32.6 L (37-47) % RDW Std Deviation 55.3 H (36.4-46.3) fL RDW Coeff of Hannah 17.6 H (11.5-14.5) % Chloride (98-107) mmol/L BUN (6-23) mg/dl BUN/Creatinine Ratio (10-20) Glucose (70-99(Fasting)) mg/dl POC Glucose 144 H 112 H (70-99) mg/dl 07/14/21 07/14/21 07/14/21 Range/Units 05:01 11:10 16:41 WBC (4.8-10.8) K/uL RBC (4.2-5.4) M/uL Hgb (12.0-16.0) g/dL Hct (37-47) % RDW Std Deviation (36.4-46.3) fL RDW Coeff of Hannah (11.5-14.5) % Chloride 114 H (98-107) mmol/L BUN 30 H (6-23) mg/dl BUN/Creatinine Ratio 29.1 H (10-20) Glucose 105 H (70-99(Fasting)) mg/dl POC Glucose 189 H 193 H (70-99) mg/dl
--- NOTE | 2021-07-14 16:49 | Magnetic Resonance Report ---
MRI OF THE BRAIN WITHOUT IV CONTRAST CLINICAL HISTORY: Change in mental status. Seizures. COMPARISON STUDY: CT of the brain dated 07/10/2021. MRI of the brain dated 08/08/2012. TECHNIQUE: MRI of the brain was performed utilizing various T1 and T2-weighted sequences in the axial , sagittal, and coronal planes. IV contrast was not administered for this examination. The examinatio n is performed using the seizure protocol. FINDINGS: Brain parenchyma: The brain parenchyma is normal in appearance. There is no hemorrhage or mass effect . There is no restricted diffusion to suggest acute ischemia. Enriquez-white matter differentiation is pr eserved. No extra-axial fluid collection is seen. Mild cerebellar tonsillar ectopia is unchanged. Ventricles, sulci, and cisterns: Normal in configuration. Pituitary and sella: Unremarkable. Intracranial vasculature: Normal flow voids are maintained at the skull base. Orbits: The bony orbits are grossly intact. Orbital contents are normal in appearance. Sinuses and mastoids: The paranasal sinuses are clear. There is trace left mastoid effusion. Calvarium: Unremarkable. Cervical cord: Partially visualized cervical spinal cord is normal in morphology and signal intensity . IMPRESSION: No acute intracranial abnormality. ACT 112: Negative or not required by law. Electronically signed by: Ja Villanueva M.D. 07/14/2021 4:46 PM
[2021-07-14] MEDS ORDERED: CONSULT PHARMACY STA (18:22)
[2021-07-14] MEDS ORDERED: VANCOMYCIN CONSULT ACTIVE PRN (18:28)
[2021-07-14] MEDS ORDERED: VANCOMYCIN HCL 2,000 MG in SODIUM CHLORIDE 0.9% 500 ML IV ONE (18:30)
[2021-07-14] MEDS ORDERED: ACYCLOVIR CONSULT ACTIVE PRN (18:33)
[2021-07-14] MEDS: ACYCLOVIR SOD 550 MG in DEXTROSE 5% 100 ML IV SCH (19:38)
[2021-07-14] MEDS: cefTRIAXone SODIUM 2,000 MG in DEXTROSE 5% 50 ML IV SCH (19:39)
[2021-07-15] MEDS: IPRATROPIUM BROMIDE NEB SOLN 0.02% 2.5 ML VIAL INH SCH ×4 (00:03→18:51)
[2021-07-15] MEDS: LEVALBUTEROL 1.25MG/0.5ML NEB INH SCH ×4 (00:03→18:51)
[2021-07-15 00:08] LABS: Codeine Urine NEGATIVE ng/mL (<50); Hydrocodone Urine NEGATIVE ng/mL (<50); Hydromor Urine NEGATIVE ng/mL (<50); Morphine Urine 892 ng/mL (<50); Norhydrocodone Conf Ur NEGATIVE ng/mL (<50); Noroxycodone Urine NEGATIVE ng/mL (<50); Oxycodone Urine NEGATIVE ng/mL (<50); Oxymorph Urine NEGATIVE ng/mL (<50)
[2021-07-15] MEDS: ACYCLOVIR SOD 550 MG in DEXTROSE 5% 100 ML IV SCH ×3 (02:48→20:17)
[2021-07-15] MEDS: VANCOMYCIN HCL 1,000 MG in SODIUM CHLORIDE 0.9% 250 ML IV SCH ×2 (04:14→17:09)
[2021-07-15 05:21] LABS: Hematocrit (blood only) 32.9 % (37-47); Hemoglobin 10.5 g/dL (12.0-16.0); Mean Corpuscular Hemoglobin 27.4 pg (25-34); Mean Corpuscular Hgb Conc 31.9 g/dL (32-36); Mean Corpuscular Volume 85.9 fL (80-100); Mean Platelet Volume 9.5 fL (7.4-10.4); Platelet Count 369 K/uL (130-400); RDW Coefficient of Variation 17.5 % (11.5-14.5); RDW Standard Deviation 54.8 fL (36.4-46.3); Red Blood Count 3.83 M/uL (4.2-5.4); White Blood Count 17.82 K/uL (4.8-10.8)
[2021-07-15 05:55] LABS: BUN Creatinine Ratio 28.6 (10-20); C Reactive Protein 4.1 mg/dl (0-0.5); Creatinine Clr Calc Pharmacy 72.4 ml/min; Est GFR (African American) 75.3 ml/min; Potassium 3.9 mmol/L (3.5-5.1)
[2021-07-15] MEDS: ATORVASTATIN 40 MG TAB PO SCH (08:32)
[2021-07-15] MEDS: PANTOprazole 40 MG TAB PO SCH (08:32)
[2021-07-15] MEDS: levETIRAcetam 500 MG TAB PO SCH (08:32)
[2021-07-15] MEDS: INSULIN GLARGINE SOLOSTAR 100 UNITS/ML 3 ML PEN SC SCH (08:32)
[2021-07-15] MEDS: TOPIRAMATE 25 MG TAB PO SCH ×2 (08:33→20:02)
[2021-07-15] MEDS: METOPROLOL SUCC 50MG EXT REL TAB PO SCH (08:33)
[2021-07-15] MEDS: CLOPIDOGREL BISULFATE 75 MG TAB PO SCH (08:33)
[2021-07-15] MEDS: predniSONE 20 MG TAB PO SCH (08:33)
[2021-07-15] MEDS: ESCITALOPRAM OXALATE 20 MG TAB PO SCH (08:33)
[2021-07-15] MEDS: ENOXAPARIN INJ 40 MG/0.4 ML SYR SQ SCH (08:34)
[2021-07-15] MEDS: cefTRIAXone SODIUM 2,000 MG in DEXTROSE 5% 50 ML IV SCH ×2 (08:36→19:40)
[2021-07-15] MEDS: BUPRENORPHINE/NALOXONE 8/2 MG TAB SL SCH ×2 (08:36→20:02)
[2021-07-15] MEDS: INSULIN ASPART PER UNIT SC SCH ×4 (08:40→20:13)
--- NOTE | 2021-07-15 09:41 | Consultation Report ---
DATE OF SERVICE: 07/15/2021. REASON FOR CONSULTATION: Change in mental status. HISTORY OF PRESENT ILLNESS: The patient is a 41-year-old right-handed female with multiple medical comorbidities including chronic diastolic heart failure, coronary artery disease, status post stent, [id number] aortic stenosis on TTE in 2020, hypertension, hyperlipidemia, history of hepatitis C, type 2 diabetes, asthma, ongoing tobacco abuse, past history of DVT, seizure disorder, mood disorder, chronic anemia, chronic pain on Suboxone; history of polysubstance abuse and ongoing tobacco abuse. Patient was last confined in 10/2020 for sepsis secondary to respiratory failure and bacteremia. At that time, she was described as being encephalopathic. On that background 1 week prior to this admission, the patient was congested and had cough, shortness of breath, weight gain and fluid retention. The patient was more sleepy and weaker. The patient was sent to the Emergency Room with respiratory failure, severe sepsis, SIRS plus acute renal failure plus hypoxemia secondary to pneumonia. The patient has had an ongoing complicated course requiring BiPAP. It was felt that her mentation was not improving and thus the reason for consultation. Respiratory status has improved without an improvement on mentation. Leukocytosis, which was 28,000 and is improved to 18,000 and there was a concern regarding meningitis or encephalitis or encephalopathy. MRI of the brain, which I reviewed, does not show any acute abnormalities. Her tox screen on admission was notable for opioids and the patient is on Suboxone and got morphine on the day of the blood draw. Yesterday due to ongoing lack of clearing on mentation, antibiotics were switched to ceftriaxone, vancomycin and acyclovir. The heel coverer machine operator did not feel a lumbar puncture would be helpful as she had received several days of antibiotics. No seizure activity has been noted and the patient is taking Keppra 500 mg b.i.d. without any vomiting. DIAGNOSTICS: White count is 17.8, H and H 10.5/32. Sed rate 87. Electrolytes notable for chloride of 115, CO2 of 20, BUN is 30, glucose of 116, normal calcium and magnesium. Tox screen as above. Viral titers negative. COVID PCR negative. Transaminases normal. MRI of the brain, noncontrast, which I reviewed, shows some atrophy, which is out of proportion to her age. No abnormality within the temporal lobes. No significant ischemic changes. No evidence of a profound hypoxic ischemic injury. Her blood cultures on this admission have been negative. Her echo did not show a thrombus or valvular vegetation. PAST MEDICAL HISTORY: As above and includes seizure, cellulitis, gram-negative sepsis, hepatosplenomegaly, history of kidney stones, hypertension, hypocalcemia, opioid abuse, last use is unknown to this examiner, history of overdose. PAST SURGICAL HISTORY: Cardiac catheterization, carpal tunnel, lumbar fusion, tonsillectomy, cholecystectomy. FAMILY HISTORY: Diabetes, heart disease, hypertension, kidney stones, and seizures. SOCIAL HISTORY: The patient smokes heavily, receives Suboxone by report. Last use opioids 3 years ago. Heroin IV drugs, meth. REVIEW OF SYSTEMS: Unobtainable. ALLERGIES: LIDOCAINE, PROCAINE, PENICILLIN, STRAWBERRY, CEPHALEXIN, TRAMADOL, AZITHROMYCIN. HOME MEDICINES: Albuterol, atorvastatin, benzonatate, Suboxone, buspirone, Plavix, cyclobenzaprine, doxycycline, Lexapro, fluconazole, glipizide, Keppra 500 b.i.d., lisinopril, loratadine, medroxyprogesterone, meloxicam, metformin, omeprazole, spironolactone, Topamax, torsemide, trazodone. CURRENT MEDICATIONS: Ceftriaxone, acyclovir, vancomycin, atorvastatin, Plavix, Lexapro, Keppra 500 b.i.d., pantoprazole, Topamax 25 b.i.d. inhaler, prednisone 40, enoxaparin, metoprolol, Suboxone, insulin; by report, the dose of Suboxone has been decreased. PHYSICAL EXAMINATION: VITAL SIGNS: 172/97, 105, 37.1, O2 sat 100%. The patient has been intermittently modestly hypertensive. GENERAL: On exam, she is sleepy, but arousable. She is perseverative. She is able to state her name, but repeats it multiple times. She follows some simple motoric commands such as raise your arms, raise your legs, but is slow with doing so. She becomes easily sleepy. She was able to count one finger, but then became perseverative. NECK: Her neck is supple. There is no sinus tenderness. CARDIAC: There is a systolic murmur heard best throughout the precordium. ABDOMEN: Soft and nontender. EXTREMITIES: Multiple pigmentary changes are noted in the distal lower extremities. Distal lower extremities are thin. No calf swelling or tenderness is appreciable. Pulses are palpable in both feet. NEUROLOGIC: Her pupils are equal, round and reactive to light. I could not adequately visualize the optic nerves, but the visualized fundus was unremarkable. There is no fixed gaze preference. Visual christina were likely intact and there is no facial asymmetry. Speech is mildly dysarthric consistent with her level of arousal and I could not test naming or repetitions. Motorically, there was normal bulk and tone. I see no seizure activity, resting tremor, cogwheel rigidity or rigidity. She is antigravity in all 4 extremities. Reflexes are symmetric and toes are downgoing. Cerebellar sensory was not testable. IMPRESSION AND PLAN: This patient appears to have hypoactive delirium. She has apparently had a tendency to have delirium with illness previously. My #1 differential would be an unrecognized seizure and I have ordered a stat EEG. #2,if the dose of suboxone has not been decreased I think it is reasonable to do so, unless we see signs of opiate withdrawal. This could be a post-hypoxic event, although MRI of the brain does not show any typical post-hypoxemic changes. As the patient has hepatosplenomegaly, even though her liver functions are normal, we will check an ammonia level. This patient is immunosuppressed, I believe due to chronic steroid use. If EEG is unrevealing and patient is not improving with the reduction in the dose of Suboxone, would consider lumbar puncture and although that could theoretically be aseptic due to pretreatment with antibiotics. We would still obtain some information regarding cell count and total protein. CSF pathogens should be adequately covered with her current antibiotic, antiviral dosing. Reassuringly, I see no meningeal signs. I do not think she has a hypertensive encephalopathy as her blood pressure has only intermittently been elevated. Medications appeared to have been minimized. I would minimize sedative hypnotics. I see no evidence of a new stroke. If the patient has been n.p.o., or had poor oral intake, could consider thiamine supplementation checking a thiamine level as well. We will follow with you. Job ID: [id number] [facility]
--- NOTE | 2021-07-15 10:10 | Hospitalist Progress Note ---
Date of Service July 15, 2021 Assessment & Plan (1) Respiratory failure: Plan: Acute on chronic respiratory failure with Hypoxia Multifactorial:Asthma/COPD exacerbation, CAP, acute on chronic diastolic heart failure Severe sepsis SIRS plus ARF plus hypoxemia secondary to possible pneumonia -CXR:Cardiomegaly with pulmonary vascular congestion. Extensive/diffuse multifocal airspace opacities are similar to yesterday. -Venous Doppler: No sonographic evidence of deep venous thrombosis. -ECHO: EF 50 to 55%. Right ventricle systolic function is normal. Left atrium size is normal. Right atrial size is normal. Moderate valvular aortic stenosis. -Procalcitonin 0.71->0.30 -Blood Cx remain negative so far Cardiology on board. Patient has been getting diuresis [employer] on board. Continue respiratory support. Patient's respiratory status has improved. On prednisone However, mental status has not improved Based on this and leukocytosis (was 28k on admission, improved to 18K) , Possibilities include meningitis/encephalitis/metabolic encephalopathy MRI brain did not show acute abnormalities UDS only positive for opioid (patient on suboxone and got morphine on day of test) Antibiotics was changed to Ceftriaxone, vancomycin and acyclovir to cover for possible meningitis/encephalitis Neuro consulted Suboxone dose had been reduced to half home dose Had temp of 38.3 today. 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 meds Continue insulin while hospitalized Monitor BGs Seizure disorder On keppra H/O DVT Status post anticoagulation Chronic pain H/O polysubstance abuse Ongoing tobacco abuse On Suboxone Will provide more counselling once stabilized DVT Px: Heparin SQ Dispo : PCU Code Status Full Code Admission and Anticipated Discharge Date Admission Date: July 10, 2021 Subjective Patient seen and examined today. Patient is confused, awake, follows simple commands occasionally, answers questions occasionally but perseverating. ROS limited due to mental status Physical Exam Constitutional: + obese; no acute distress Eyes: PERRL, conjunctivae normal, anicteric sclerae ENMT: external ear and nose normal, oropharynx normal Respiratory: normal respiratory effort; no respiratory distress Air entry bilaterally. Crackles reduced Cardiovascular: Rate/Rhythm: regular rate and regular rhythm S1 S2 Gastrointestinal (Abdomen): normal bowel sounds, soft, nontender, no hepatosplenomegaly Musculoskeletal: no cyanosis or clubbing, extremities motor strength 5/5 Neurologic: Awake, follows simple commands, Able to tell me her name but then started perseverating, saying her name to all subsequent questions Moves all extremities Results & Data Results & Data ([facility]) Vital Signs (Past 12 Hours) Vital Signs Temp Pulse Pulse Resp BP Pulse Ox 07/15/21 07:23 105 H 22 100 07/15/21 04:20 172/97 H 07/15/21 03:23 37.1 C 100 H 23 155/84 H 98 07/15/21 03:13 104 H 21 98 07/15/21 00:06 101 H 19 98 07/14/21 23:49 96 H 07/14/21 22:50 96 H 21 95 07/14/21 22:26 37.2 C 94 H 21 158/97 H 97 Laboratory Results Abnormal lab results 07/12/21 07/14/21 07/14/21 Range/Units 17:00 16:41 20:57 WBC (4.8-10.8) K/uL RBC (4.2-5.4) M/uL Hgb (12.0-16.0) g/dL Hct (37-47) % MCHC (32-36) g/dL RDW Std Deviation (36.4-46.3) fL RDW Coeff of Hannah (11.5-14.5) % ESR (0-20) mm/hr Chloride (98-107) mmol/L Carbon Dioxide (21-32) mmol/L BUN (6-23) mg/dl BUN/Creatinine Ratio (10-20) Glucose (70-99(Fasting)) mg/dl POC Glucose 193 H 128 H (70-99) mg/dl C-Reactive Protein (0-0.5) mg/dl Ur Morphine (GC/MS) 892 H (<50) ng/mL 07/15/21 07/15/21 07/15/21 Range/Units 04:59 04:59 04:59 WBC 17.82 H (4.8-10.8) K/uL RBC 3.83 L (4.2-5.4) M/uL Hgb 10.5 L (12.0-16.0) g/dL Hct 32.9 L (37-47) % MCHC 31.9 L (32-36) g/dL RDW Std Deviation 54.8 H (36.4-46.3) fL RDW Coeff of Hannah 17.5 H (11.5-14.5) % ESR 87 H (0-20) mm/hr Chloride 115 H (98-107) mmol/L Carbon Dioxide 20 L (21-32) mmol/L BUN 30 H (6-23) mg/dl BUN/Creatinine Ratio 28.6 H (10-20) Glucose 116 H (70-99(Fasting)) mg/dl POC Glucose (70-99) mg/dl C-Reactive Protein 4.10 H (0-0.5) mg/dl Ur Morphine (GC/MS) (<50) ng/mL 07/15/21 07/15/21 Range/Units 07:26 11:42 WBC (4.8-10.8) K/uL RBC (4.2-5.4) M/uL Hgb (12.0-16.0) g/dL Hct (37-47) % MCHC (32-36) g/dL RDW Std Deviation (36.4-46.3) fL RDW Coeff of Hannah (11.5-14.5) % ESR (0-20) mm/hr Chloride (98-107) mmol/L Carbon Dioxide (21-32) mmol/L BUN (6-23) mg/dl BUN/Creatinine Ratio (10-20) Glucose (70-99(Fasting)) mg/dl POC Glucose 124 H 173 H (70-99) mg/dl C-Reactive Protein (0-0.5) mg/dl Ur Morphine (GC/MS) (<50) ng/mL
--- NOTE | 2021-07-15 10:52 | Pulmonology Progress Note ---
Date of Service July 15, 2021 Assessment & Plan (1) Acute respiratory failure with hypoxia: (2) Abnormal CT scan, chest: (3) Acute CHF (congestive heart failure): (4) Aortic stenosis: (5) Altered mental status, unspecified: Plan: 41-year-old female with history of aortic stenosis, diastolic CHF, obesity, opiate abuse, GERD and depression presenting to the hospital due to shortness of breath. Her CT chest findings and acute hypoxemic respiratory failure is likely multifactorial related to acute diastolic CHF, aortic stenosis and a possible element of multifocal pneumonia. Inflammatory lung disease difficult to rule out. Can consider bronchoscopy once respiratory status improved to evaluate inflammatory lung disease. Lung biopsy with VATS may also need to be considered in the future once cardiac status is optimized if she continues to have abnormal CT imaging and PFTs suggestive of ILD. Unfortunately, medical compliance has been an issue in the past and she has had poor follow-up with her outpatient visits. Repeat CXR with improvement post diuresis. Continue with prednisone therapy for the time being. CHRISTIAN screen negative. Rheumatoid factor, CHRISTIAN screen and glomerular basement membrane antibody negative in 2018 as well. Urine drug screen largely unremarkable. No signs of renal disease at present. HIV screen pending. ESR/CRP trending down. CK normal. JO1 antibody and aldolase pending. Urine Legionella antigen and mycoplasma antibodies pending. Biofire negative. MRSA screen negative. Continue broad-spectrum antibiotics. Unclear etiology for encephalopathy. Likely multifactorial from delirium, hypoxia. MRI brain unremarkable. EEG being completed now. ?Psych disorder/catatonia ?Meningitis or encephalitis. Admission and Anticipated Discharge Date Admission Date: July 10, 2021 Subjective Patient remains confused. Not answering my questions, but apparently answering simple commands at time per discussion with nurse and solid waste technician. Currently undergoing an EEG. No acute events overnight. Tolerated nocturnal BIPAP. Currently on 6L NC. Review of Systems Review of Systems: Limited due to ams Physical Exam Physical Exam: Constitutional: No apparent distress. Eyes: Pupils are equal round and reactive to light. Conjunctivae are normal. Anicteric sclera. Ears nose, mouth and throat: No obvious deformities. Neck: Trachea is midline. Visual inspection is normal. Respiratory: Coarse crackles improved Cardiovascular: Regular rhythm. Tachycardic. No edema. Gastrointestinal: Normal bowel sounds, soft, nontender and nondistended. No hepatosplenomegaly noted. Musculoskeletal: No cyanosis. Patient is able to move all extremities. Skin: No rashes, warm dry and intact. Neurologic: No obvious focal neurological deficits seen. Psychiatric: Appears alert and awake. Confused Results & Data Results & Data ([facility]) Vital Signs (Past 12 Hours) Vital Signs Temp Pulse Pulse Resp BP Pulse Ox 07/15/21 09:00 37 C 97 H 22 153/109 H 96 07/15/21 07:23 105 H 22 100 07/15/21 04:20 172/97 H 07/15/21 03:23 37.1 C 100 H 23 155/84 H 98 07/15/21 03:13 104 H 21 98 07/15/21 00:06 101 H 19 98 07/14/21 23:49 96 H 07/14/21 22:50 96 H 21 95 PG Care Time/CCT Total # of Minutes Spent Total Time Spent with Patient: Total time spent is greater than 50% in coordination of care (as documented) at patient's floor/unit and/or counseling patient: Coding Level of Care Code 47688 Subseq Hosp Care Lvl 2 Diagnoses Acute respiratory failure with hypoxia J96.[address] scan, chest R93.89 Acute CHF (congestive heart failure) I50.9 Aortic stenosis I35.0 Altered mental status, unspecified R41.82
--- NOTE | 2021-07-15 10:56 | Electroencephalogram ---
EEG Procedure Note Date of Service July 15, 2021 Start / End Times Start Time: 10:14 End Time: 10:[address] Gloria Lange History A 41 year old woman with multiple medical comorbidities admitted with encephalopathy. EEG performed for evaluation of epileptiform activity. Home Medication List Medication Instructions Recorded Confirmed Type albuterol sulfate 2.5 mg INHALATION Q4 PRN 07/10/21 07/10/21 History albuterol sulfate 90 mcg/actuation 2 puff INHALATION Q4 PRN 07/10/21 07/10/21 History aerosol inhaler atorvastatin 80 mg tablet 80 mg PO DAILY 07/10/21 07/10/21 History benzonatate 100 mg capsule 100 mg PO TID PRN 07/10/21 07/10/21 History buprenorphine 8 mg-naloxone 2 mg 0.5 tab SUBLINGUAL TID 07/10/21 07/10/21 History sublingual tablet buspirone 15 mg tablet 15 mg PO BID 07/10/21 07/10/21 History clopidogrel 75 mg tablet 75 mg PO DAILY 07/10/21 07/10/21 History cyclobenzaprine 10 mg tablet 10 mg PO BID 07/10/21 07/10/21 History doxycycline hyclate 100 mg tablet 100 mg PO BID 07/10/21 07/10/21 History escitalopram oxalate 20 mg tablet 20 mg PO DAILY 07/10/21 07/10/21 History fluconazole 150 mg tablet 150 mg PO .ONE TIME DOSE 07/10/21 07/10/21 History glipizide 10 mg tablet 10 mg PO DAILY 07/10/21 07/10/21 History levetiracetam 500 mg tablet 500 mg PO BID 07/10/21 07/10/21 History lisinopril 5 mg tablet 2.5 mg PO DAILY 07/10/21 07/10/21 History loratadine 10 mg tablet 10 mg PO DAILY 07/10/21 07/10/21 History medroxyprogesterone 150 mg/mL 150 mg IM .Q3MO 07/10/21 07/10/21 History intramuscular suspension meloxicam 7.5 mg tablet 7.5 mg PO DAILY 07/10/21 07/10/21 History metformin 1,000 mg tablet 1,000 mg PO BID 07/10/21 07/10/21 History metoprolol succinate 25 mg 25 mg PO DAILY 07/10/21 07/10/21 History tablet,extended release 24 hr omeprazole 20 mg tablet,delayed 20 mg PO DAILY 07/10/21 07/10/21 History release polyethylene glycol 3350 17 gram 17 g PO DAILY PRN 07/10/21 07/10/21 History oral powder packet (Miralax) potassium chloride 20 mEq 20 meq PO DAILY 07/10/21 07/10/21 History tablet,extended release(part/cryst) (Klor-Con M) spironolactone 25 mg tablet 25 mg PO DAILY 07/10/21 07/10/21 History topiramate 25 mg tablet 25 mg PO BID 07/10/21 07/10/21 History torsemide 20 mg tablet 20 mg PO BID 07/10/21 07/10/21 History trazodone 50 mg tablet 25 - 50 mg PO HS 07/10/21 07/10/21 History Inpatient Medication List Atorvastatin Calcium (Atorvastatin 40 Mg Tab) 80 mg PO DAILY [facility] Stop: 08/10/21 08:59 Last Admin: 07/15/21 08:32 Dose: 80 mg Documented by: [id number] Admin: 07/14/21 08:51 Dose: 80 mg Documented by: [id number] Admin: 07/13/21 08:39 Dose: 80 mg Documented by: [id number] Admin: 07/12/21 09:45 Dose: Not Given Documented by: [id number] Admin: 07/11/21 12:08 Dose: Not Given Documented by: [id number] Buprenorphine/Naloxone (Buprenorphine/Naloxone 8/2 Mg Tab) 0.5 tab SL BID [facility] Stop: 08/13/21 20:59 Last Admin: 07/15/21 08:36 Dose: 0.5 tab Documented by: [id number] Admin: 07/14/21 21:04 Dose: 0.5 tab Documented by: [id number] Clopidogrel Bisulfate (Clopidogrel Bisulfate 75 Mg Tab) 75 mg PO DAILY [facility] Stop: 08/10/21 08:59 Last Admin: 07/15/21 08:33 Dose: 75 mg Documented by: [id number] Admin: 07/14/21 08:51 Dose: 75 mg Documented by: [id number] Admin: 07/13/21 08:40 Dose: 75 mg Documented by: [id number] Admin: 07/12/21 09:45 Dose: Not Given Documented by: [id number] Admin: 07/11/21 11:03 Dose: 75 mg Documented by: [id number] Doxycycline Hyclate (Doxycycline Hyclate 100 Mg Cap) 100 mg PO BID [facility] Stop: 07/20/21 08:59 Last Admin: 07/11/21 12:12 Dose: Not Given Documented by: [id number] Enoxaparin Sodium (Enoxaparin Inj 40 Mg/0.4 Ml Syr) 40 mg SQ QAM [facility] Stop: 08/12/21 10:14 Last Admin: 07/15/21 08:34 Dose: 40 mg Documented by: [id number] Admin: 07/14/21 08:52 Dose: 40 mg Documented by: [id number] Admin: 07/13/21 11:17 Dose: 40 mg Documented by: [id number] Escitalopram Oxalate (Escitalopram Oxalate 20 Mg Tab) 20 mg PO DAILY [facility] Stop: 08/10/21 08:59 Last Admin: 07/15/21 08:33 Dose: 20 mg Documented by: [id number] Admin: 07/14/21 08:51 Dose: 20 mg Documented by: [id number] Admin: 07/13/21 08:40 Dose: 20 mg Documented by: [id number] Admin: 07/12/21 09:45 Dose: Not Given Documented by: [id number] Admin: 07/11/21 12:08 Dose: Not Given Documented by: [id number] Ceftriaxone Sodium 2,000 mg/ (Dextrose) 70 mls @ 140 mls/hr IV Q12H [facility] Stop: 07/24/21 18:59 Last Infusion: 07/15/21 09:38 Dose: 0 mls/hr Documented by: [id number] Admin: 07/15/21 08:36 Dose: 140 mls/hr Documented by: [id number] Infusion: 07/14/21 20:52 Dose: 0 mls/hr Documented by: [id number] Admin: 07/14/21 19:39 Dose: 140 mls/hr Documented by: [id number] Acyclovir Sodium 550 mg/ (Dextrose) 111 mls @ 100 mls/hr IV Q8H [facility]; Protocol Stop: 07/24/21 18:59 Last Infusion: 07/15/21 03:55 Dose: 0 mls/hr Documented by: [id number] Admin: 07/15/21 02:48 Dose: 100 mls/hr Documented by: [id number] Infusion: 07/14/21 20:48 Dose: 0 mls/hr Documented by: [id number] Admin: 07/14/21 19:38 Dose: 100 mls/hr Documented by: [id number] Vancomycin HCl 1,000 mg/ (Sodium Chloride) 270 mls @ 200 mls/hr IV Q12H [facility] Stop: 07/25/21 03:59 Last Infusion: 07/15/21 05:35 Dose: 0 mls/hr Documented by: [id number] Admin: 07/15/21 04:14 Dose: 200 mls/hr Documented by: [id number] Insulin Aspart (Insulin Aspart Per Unit) 0 units SC ACHS [facility] Stop: 08/13/21 11:29 Last Admin: 07/15/21 08:40 Dose: 1 units Documented by: [id number] Cosigned by: [id number] Admin: 07/14/21 21:04 Dose: Not Given Documented by: [id number] Admin: 07/14/21 16:49 Dose: 3 units Documented by: [id number] Cosigned by: [id number] Admin: 07/14/21 11:21 Dose: 2 units Documented by: [id number] Cosigned by: [id number] Insulin Glargine (Insulin Glargine Solostar 100 Units/Ml 3 Ml Pen) 10 units SC DAILY [facility] Stop: 08/13/21 08:59 Last Admin: 07/15/21 08:32 Dose: 10 units Documented by: [id number] Cosigned by: [id number] Admin: 07/14/21 08:52 Dose: 10 units Documented by: [id number] Cosigned by: [id number] Ipratropium [place] (Ipratropium [place] Neb Soln 0.02% 2.5 Ml Vial) 0.5 mg INH Q6R [facility] Stop: 08/10/21 00:59 Last Admin: 07/15/21 07:23 Dose: 0.5 mg Documented by: [id number] Admin: 07/15/21 00:03 Dose: 0.5 mg Documented by: [id number] Admin: 07/14/21 19:47 Dose: 0.5 mg Documented by: [id number] Admin: 07/14/21 13:15 Dose: 0.5 mg Documented by: [id number] Admin: 07/14/21 07:25 Dose: 0.5 mg Documented by: [id number] Admin: 07/14/21 00:08 Dose: 0.5 mg Documented by: [id number] Admin: 07/13/21 19:18 Dose: 0.5 mg Documented by: [id number] Admin: 07/13/21 12:26 Dose: 0.5 mg Documented by: [id number] Admin: 07/13/21 07:08 Dose: 0.5 mg Documented by: [id number] Admin: 07/13/21 00:24 Dose: 0.5 mg Documented by: [id number] Admin: 07/12/21 19:59 Dose: 0.5 mg Documented by: [id number] Admin: 07/12/21 12:50 Dose: 0.5 mg Documented by: [id number] Admin: 07/12/21 07:09 Dose: 0.5 mg Documented by: [id number] Admin: 07/12/21 00:49 Dose: Not Given Documented by: [id number] Admin: 07/11/21 19:06 Dose: 0.5 mg Documented by: [id number] Admin: 07/11/21 12:36 Dose: 0.5 mg Documented by: [id number] Admin: 07/11/21 07:06 Dose: 0.5 mg Documented by: [id number] Admin: 07/11/21 00:29 Dose: 0.5 mg Documented by: [id number] Levalbuterol HCl (Levalbuterol 1.25mg/0.5ml Neb) 1.25 mg INH Q6R [facility] Stop: 08/10/21 00:59 Last Admin: 07/15/21 07:23 Dose: 1.25 mg Documented by: [id number] Admin: 07/15/21 00:03 Dose: 1.25 mg Documented by: [id number] Admin: 07/14/21 19:47 Dose: 1.25 mg Documented by: [id number] Admin: 07/14/21 13:15 Dose: 1.25 mg Documented by: [id number] Admin: 07/14/21 07:24 Dose: 1.25 mg Documented by: [id number] Admin: 07/14/21 00:08 Dose: 1.25 mg Documented by: [id number] Admin: 07/13/21 19:18 Dose: 1.25 mg Documented by: [id number] Admin: 07/13/21 12:26 Dose: 1.25 mg Documented by: [id number] Admin: 07/13/21 07:08 Dose: 1.25 mg Documented by: [id number] Admin: 07/13/21 00:24 Dose: 1.25 mg Documented by: [id number] Admin: 07/12/21 19:59 Dose: 1.25 mg Documented by: [id number] Admin: 07/12/21 12:50 Dose: 1.25 mg Documented by: [id number] Admin: 07/12/21 07:09 Dose: 1.25 mg Documented by: [id number] Admin: 07/12/21 01:40 Dose: 1.25 mg Documented by: [id number] Admin: 07/12/21 00:49 Dose: Not Given Documented by: [id number] Admin: 07/11/21 19:06 Dose: 1.25 mg Documented by: [id number] Admin: 07/11/21 12:36 Dose: 1.25 mg Documented by: [id number] Admin: 07/11/21 07:06 Dose: 1.25 mg Documented by: [id number] Admin: 07/11/21 00:29 Dose: 1.25 mg Documented by: [id number] Levetiracetam (Levetiracetam 500 Mg Tab) 500 mg PO BID [facility] Stop: 08/10/21 08:59 Last Admin: 07/15/21 08:32 Dose: 500 mg Documented by: [id number] Admin: 07/14/21 21:04 Dose: 500 mg Documented by: [id number] Admin: 07/14/21 08:51 Dose: 500 mg Documented by: [id number] Admin: 07/13/21 20:01 Dose: 500 mg Documented by: [id number] Admin: 07/11/21 12:13 Dose: Not Given Documented by: [id number] Metoprolol Succinate (Metoprolol Succ 50mg Ext Rel Tab) 50 mg PO DAILY [facility] Stop: 08/13/21 08:59 Last Admin: 07/15/21 08:33 Dose: 50 mg Documented by: [id number] Admin: 07/14/21 08:51 Dose: 50 mg Documented by: [id number] Pantoprazole Sodium (Pantoprazole 40 Mg Tab) 40 mg PO DAILY [facility] Stop: 08/10/21 08:59 Last Admin: 07/15/21 08:32 Dose: 40 mg Documented by: [id number] Admin: 07/14/21 08:51 Dose: 40 mg Documented by: [id number] Admin: 07/11/21 12:11 Dose: Not Given Documented by: [id number] Prednisone (Prednisone 20 Mg Tab) 40 mg PO DAILY [facility] Stop: 07/15/21 18:59 Last Admin: 07/15/21 08:33 Dose: 40 mg Documented by: [id number] Admin: 07/14/21 08:57 Dose: 40 mg Documented by: [id number] Admin: 07/13/21 08:41 Dose: 40 mg Documented by: [id number] Admin: 07/12/21 19:11 Dose: Not Given Documented by: [id number] Topiramate (Topiramate 25 Mg Tab) 25 mg PO BID [facility] Stop: 08/10/21 08:59 Last Admin: 07/15/21 08:33 Dose: 25 mg Documented by: [id number] Admin: 07/14/21 21:04 Dose: 25 mg Documented by: [id number] Admin: 07/14/21 08:51 Dose: 25 mg Documented by: [id number] Admin: 07/13/21 20:01 Dose: 25 mg Documented by: [id number] Admin: 07/13/21 08:40 Dose: 25 mg Documented by: [id number] Admin: 07/12/21 19:14 Dose: Not Given Documented by: [id number] Admin: 07/12/21 09:45 Dose: Not Given Documented by: [id number] Admin: 07/11/21 20:49 Dose: 25 mg Documented by: [id number] Admin: 07/11/21 11:01 Dose: 25 mg Documented by: [id number] Discontinued Medications Al Hydrox/Mg Hydrox/Simethicone (Gi Cocktail Ed Use) 1 dose PO ONE ONE Stop: 07/10/21 19:59 Last Admin: 07/10/21 20:11 Dose: 1 dose Documented by: [id number] Albuterol (Albut/Ipratrop 3mg/0.5mg Neb 3 Ml Vial) 3 ml NEB NOW STA; Protocol Stop: 07/10/21 18:57 Last Admin: 07/10/21 19:20 Dose: 3 ml Documented by: [id number] Aspirin (Aspirin 81 Mg Chew) 324 mg PO NOW STA Stop: 07/10/21 19:59 Last Admin: 07/10/21 20:11 Dose: 324 mg Documented by: [id number] Buprenorphine/Naloxone (Buprenorphine/Naloxone 8/2 Mg Tab) 0.5 tab SL TID [facility] Stop: 08/10/21 08:59 Last Admin: 07/14/21 08:56 Dose: 0.5 tab Documented by: [id number] Admin: 07/13/21 20:08 Dose: 0.5 tab Documented by: [id number] Admin: 07/13/21 14:46 Dose: 0.5 tab Documented by: [id number] Admin: 07/13/21 08:35 Dose: 0.5 tab Documented by: [id number] Admin: 07/12/21 20:54 Dose: 0.5 tab Documented by: [id number] Admin: 07/12/21 13:47 Dose: 0.5 tab Documented by: [id number] Admin: 07/12/21 09:50 Dose: 0.5 tab Documented by: [id number] Admin: 07/11/21 20:49 Dose: 0.5 tab Documented by: [id number] Admin: 07/11/21 13:32 Dose: 0.5 tab Documented by: [id number] Admin: 07/11/21 12:06 Dose: Not Given Documented by: [id number] Doxycycline Hyclate (Doxycycline Hyclate 100 Mg Cap) 100 mg PO NOW STA Stop: 07/10/21 18:57 Last Admin: 07/10/21 19:20 Dose: 100 mg Documented by: [id number] Furosemide (Furosemide Inj 20 Mg/2 Ml Vial) 20 mg IV ONE ONE Stop: 07/11/21 04:58 Last Admin: 07/11/21 05:25 Dose: 20 mg Documented by: [id number] Furosemide (Furosemide Inj 20 Mg/2 Ml Vial) 20 mg IV ONE ONE Stop: 07/12/21 01:29 Last Admin: 07/12/21 01:43 Dose: 20 mg Documented by: [id number] Furosemide (Furosemide 40 Mg/4 Ml Vial) 40 mg IV ONE ONE Stop: 07/12/21 11:31 Last Admin: 07/12/21 11:34 Dose: Not Given Documented by: [id number] Furosemide (Furosemide 40 Mg/4 Ml Vial) Confirm Administered Dose 40 mg IV .STK- MED ONE Stop: 07/12/21 11:07 Last Admin: 07/12/21 11:33 Dose: 40 mg Documented by: [id number] Furosemide (Furosemide 40 Mg/4 Ml Vial) 40 mg IV ONE ONE Stop: 07/12/21 18:58 Last Admin: 07/12/21 19:34 Dose: 40 mg Documented by: [id number] Heparin Sodium (Porcine) (Heparin Sod 5,000 Unit/0.5 Ml Vial) 5,000 units SQ Q8 [facility] Stop: 08/10/21 05:59 Last Admin: 07/13/21 05:17 Dose: 5,000 units Documented by: [id number] Admin: 07/12/21 21:22 Dose: 5,000 units Documented by: [id number] Admin: 07/12/21 13:41 Dose: 5,000 units Documented by: [id number] Admin: 07/12/21 05:07 Dose: 5,000 units Documented by: [id number] Admin: 07/11/21 20:49 Dose: 5,000 units Documented by: [id number] Admin: 07/11/21 13:16 Dose: 5,000 units Documented by: [id number] Admin: 07/11/21 06:21 Dose: 5,000 units Documented by: [id number] Hydroxyzine HCl (Hydroxyzine Hcl 10 Mg Tab) 10 mg PO NOW STA Stop: 07/12/21 00:57 Last Admin: 07/12/21 02:23 Dose: Not Given Documented by: [id number] Cefepime HCl (Maxipime) 2,000 mg in 20 mls @ 5 mls/min IV NOW STA; Protocol Stop: 07/10/21 19:35 Last Admin: 07/10/21 20:09 Dose: 5 mls/min Documented by: [id number] Magnesium Sulfate/Dextrose (Magnesium Sulfate / D5w) 1 gm in 100 mls @ 200 mls/hr IV Q30M [facility] Stop: 07/10/21 20:44 Last Infusion: 07/10/21 21:34 Dose: 0 mls/hr Documented by: [id number] Admin: 07/10/21 20:38 Dose: 200 mls/hr Documented by: [id number] Infusion: 07/10/21 20:19 Dose: 0 mls/hr Documented by: [id number] Admin: 07/10/21 19:40 Dose: 200 mls/hr Documented by: [id number] Famotidine (Pepcid 20mg Iv Push) 20 mg in 5 mls @ 2.5 mls/min IV NOW STA Stop: 07/10/21 19:57 Last Admin: 07/10/21 20:14 Dose: 2.5 mls/min Documented by: [id number] Sodium Chloride (Nss 1000ml) 500 mls @ 999 mls/hr IV .Q31M ONE Stop: 07/10/21 20:35 Last Infusion: 07/10/21 21:34 Dose: 0 mls/hr Documented by: [id number] Admin: 07/10/21 20:18 Dose: 999 mls/hr Documented by: [id number] Calcium Gluconate () 1,000 mg in 60 mls @ 240 mls/hr IV NOW STA Stop: 07/10/21 21:25 Last Infusion: 07/10/21 22:05 Dose: 0 mls/hr Documented by: [id number] Admin: 07/10/21 21:48 Dose: 240 mls/hr Documented by: [id number] Albumin Human (Albumin 25% 100 Ml) 25 gm in 100 mls @ 50 mls/hr IV ONE ONE Stop: 07/11/21 00:52 Last Infusion: 07/11/21 01:03 Dose: 0 mls/hr Documented by: [id number] Admin: 07/10/21 23:04 Dose: 50 mls/hr Documented by: [id number] Magnesium Sulfate/Dextrose (Magnesium Sulfate / D5w) 1 gm in 100 mls @ 50 mls/hr IV ONE ONE Stop: 07/11/21 01:57 Last Infusion: 07/11/21 05:12 Dose: 0 mls/hr Documented by: [id number] Admin: 07/11/21 02:43 Dose: 50 mls/hr Documented by: [id number] Cefepime HCl 2,000 mg/ Syringe 20 mls @ 5 mls/min IV Q8H [facility]; Protocol Stop: 07/18/21 05:59 Last Admin: 07/14/21 14:11 Dose: 5 mls/min Documented by: [id number] Admin: 07/14/21 05:03 Dose: 5 mls/min Documented by: [id number] Admin: 07/13/21 21:09 Dose: 5 mls/min Documented by: [id number] Admin: 07/13/21 14:47 Dose: 5 mls/min Documented by: [id number] Admin: 07/13/21 05:16 Dose: 5 mls/min Documented by: [id number] Admin: 07/12/21 20:53 Dose: 5 mls/min Documented by: [id number] Admin: 07/12/21 13:02 Dose: 5 mls/min Documented by: [id number] Admin: 07/12/21 05:06 Dose: 5 mls/min Documented by: [id number] Admin: 07/11/21 20:48 Dose: 5 mls/min Documented by: [id number] Admin: 07/11/21 13:29 Dose: 5 mls/min Documented by: [id number] Admin: 07/11/21 06:21 Dose: 5 mls/min Documented by: [id number] Methylprednisolone 40 mg/ (Syringe) 0.64 mls @ 1.5 mls/min IV DAILY [facility] Stop: 08/10/21 08:59 Last Admin: 07/11/21 08:08 Dose: 1.5 mls/min Documented by: [id number] Albumin Human (Albumin 25% 100 Ml) 25 gm in 100 mls @ 50 mls/hr IV ONE ONE Stop: 07/11/21 06:56 Last Infusion: 07/11/21 08:11 Dose: 0 mls/hr Documented by: [id number] Admin: 07/11/21 05:26 Dose: 50 mls/hr Documented by: [id number] Pantoprazole Sodium 40 mg/ (Syringe) 10 mls @ 5 mls/min IV DAILY@1100 [facility] Stop: 07/13/21 12:00 Last Admin: 07/13/21 11:19 Dose: 5 mls/min Documented by: [id number] Admin: 07/12/21 13:18 Dose: 5 mls/min Documented by: [id number] Levetiracetam 500 mg/ Sodium (Chloride) 105 mls @ 420 mls/hr IV Q12H [facility] Stop: 07/13/21 12:00 Last Infusion: 07/13/21 11:39 Dose: 0 mls/hr Documented by: [id number] Admin: 07/13/21 11:18 Dose: 420 mls/hr Documented by: [id number] Infusion: 07/13/21 00:18 Dose: 0 mls/hr Documented by: [id number] Admin: 07/12/21 23:17 Dose: 420 mls/hr Documented by: [id number] Infusion: 07/12/21 13:25 Dose: 0 mls/hr Documented by: [id number] Admin: 07/12/21 13:02 Dose: 420 mls/hr Documented by: [id number] Infusion: 07/11/21 23:29 Dose: 0 mls/hr Documented by: [id number] Admin: 07/11/21 22:51 Dose: 420 mls/hr Documented by: [id number] Doxycycline Hyclate 100 mg/ (Dextrose) 110 mls @ 50 mls/hr IV Q12H [facility] Stop: 07/18/21 22:59 Last Infusion: 07/14/21 13:06 Dose: 0 mls/hr Documented by: [id number] Admin: 07/14/21 11:05 Dose: 50 mls/hr Documented by: [id number] Infusion: 07/14/21 01:08 Dose: 0 mls/hr Documented by: [id number] Admin: 07/13/21 22:56 Dose: 50 mls/hr Documented by: [id number] Infusion: 07/13/21 14:22 Dose: 0 mls/hr Documented by: [id number] Admin: 07/13/21 11:18 Dose: 50 mls/hr Documented by: [id number] Infusion: 07/13/21 03:00 Dose: 0 mls/hr Documented by: [id number] Admin: 07/12/21 23:28 Dose: 50 mls/hr Documented by: [id number] Infusion: 07/12/21 15:45 Dose: 0 mls/hr Documented by: [id number] Admin: 07/12/21 13:18 Dose: 50 mls/hr Documented by: [id number] Infusion: 07/12/21 02:04 Dose: 0 mls/hr Documented by: [id number] Admin: 07/11/21 23:41 Dose: 50 mls/hr Documented by: [id number] Doxycycline Hyclate 100 mg/ (Dextrose) 110 mls @ 50 mls/hr IV ONE ONE Stop: 07/11/21 14:41 Last Infusion: 07/11/21 15:10 Dose: 0 mls/hr Documented by: [id number] Admin: 07/11/21 13:08 Dose: 50 mls/hr Documented by: [id number] Levetiracetam 500 mg/ Sodium (Chloride) 105 mls @ 420 mls/hr IV ONE ONE Stop: 07/11/21 12:44 Last Infusion: 07/11/21 13:08 Dose: 0 mls/hr Documented by: [id number] Admin: 07/11/21 12:51 Dose: 420 mls/hr Documented by: [id number] Pantoprazole Sodium 40 mg/ (Syringe) 10 mls @ 5 mls/min IV ONE ONE Stop: 07/11/21 12:31 Last Admin: 07/11/21 12:48 Dose: 5 mls/min Documented by: [id number] Methylprednisolone 40 mg/ (Syringe) 0.64 mls @ 1.5 mls/min IV DAILY [facility] Stop: 08/11/21 01:29 Last Admin: 07/12/21 01:43 Dose: 1.5 mls/min Documented by: [id number] Bumetanide 1 mg/ Syringe 4 mls @ 4 mls/min IV ONE ONE Stop: 07/13/21 10:04 Last Admin: 07/13/21 11:19 Dose: 4 mls/min Documented by: [id number] Potassium Phosphate 21 mmol/ (Sodium Chloride) 507 mls @ 145 mls/hr IV ONE ONE Stop: 07/13/21 13:59 Last Infusion: 07/13/21 14:47 Dose: 0 mls/hr Documented by: [id number] Admin: 07/13/21 11:17 Dose: 145 mls/hr Documented by: [id number] Vancomycin HCl 2,000 mg/ (Sodium Chloride) 540 mls @ 200 mls/hr IV ONE ONE Stop: 07/14/21 21:11 Last Infusion: 07/14/21 22:21 Dose: 0 mls/hr Documented by: [id number] Admin: 07/14/21 19:39 Dose: 200 mls/hr Documented by: [id number] Insulin Aspart (Insulin Aspart Per Unit) 0 units SC Q6 [facility] Stop: 08/10/21 00:29 Last Admin: 07/14/21 05:04 Dose: Not Given Documented by: [id number] Admin: 07/13/21 23:09 Dose: 1 units Documented by: [id number] Cosigned by: [id number] Admin: 07/13/21 18:11 Dose: 2 units Documented by: [id number] Cosigned by: [id number] Admin: 07/13/21 12:09 Dose: 4 units Documented by: [id number] Cosigned by: [id number] Admin: 07/13/21 05:16 Dose: 3 units Documented by: [id number] Cosigned by: [id number] Admin: 07/12/21 23:39 Dose: 5 units Documented by: [id number] Cosigned by: [id number] Admin: 07/12/21 18:26 Dose: 2 units Documented by: [id number] Cosigned by: [id number] Admin: 07/12/21 12:20 Dose: 4 units Documented by: [id number] Cosigned by: [id number] Admin: 07/12/21 06:01 Dose: 3 units Documented by: [id number] Cosigned by: [id number] Admin: 07/11/21 23:50 Dose: 3 units Documented by: [id number] Cosigned by: [id number] Admin: 07/11/21 18:15 Dose: 4 units Documented by: [id number] Cosigned by: [id number] Admin: 07/11/21 12:51 Dose: 3 units Documented by: [id number] Cosigned by: [id number] Admin: 07/11/21 06:20 Dose: 5 units Documented by: [id number] Cosigned by: [id number] Admin: 07/11/21 00:33 Dose: 3 units Documented by: [id number] Cosigned by: [id number] Insulin Glargine (Insulin Glargine Solostar 100 Units/Ml 3 Ml Pen) 5 units SC DAILY [facility] Stop: 08/10/21 03:59 Last Admin: 07/13/21 08:41 Dose: 5 units Documented by: [id number] Cosigned by: [id number] Admin: 07/12/21 09:52 Dose: 5 units Documented by: [id number] Cosigned by: [id number] Admin: 07/11/21 04:14 Dose: 5 units Documented by: [id number] Cosigned by: [id number] Insulin Glargine (Insulin Glargine Solostar 100 Units/Ml 3 Ml Pen) 5 units SC TODAY@1130 ONE Stop: 07/13/21 11:31 Last Admin: 07/13/21 11:21 Dose: 5 units Documented by: [id number] Cosigned by: [id number] Lorazepam (Lorazepam 2 Mg/1 Ml Vial) 0.5 mg IV NOW STA Stop: 07/12/21 10:53 Last Admin: 07/12/21 11:35 Dose: Not Given Documented by: [id number] Methylprednisolone (Methylprednisolone 125 Mg/2 Ml Vial) 60 mg IV NOW STA Stop: 07/10/21 19:07 Last Admin: 07/10/21 19:20 Dose: 60 mg Documented by: [id number] Metoprolol Succinate (Metoprolol Succ 25mg Ext Rel Tab) 25 mg PO DAILY [facility] Stop: 08/10/21 15:29 Last Admin: 07/11/21 16:44 Dose: 25 mg Documented by: [id number] Metoprolol Succinate (Metoprolol Succ 25mg Ext Rel Tab) 25 mg PO DAILY [facility] Stop: 08/11/21 00:59 Last Admin: 07/12/21 02:23 Dose: Not Given Documented by: [id number] Metoprolol Succinate (Metoprolol Succ 25mg Ext Rel Tab) 25 mg PO DAILY [facility] Stop: 08/11/21 08:59 Last Admin: 07/12/21 09:45 Dose: Not Given Documented by: [id number] Metoprolol Tartrate (Metoprolol Tartrate 1 Mg/Ml Vial) 2.5 mg IV NOW STA; Protocol Stop: 07/11/21 04:57 Last Admin: 07/11/21 05:25 Dose: 2.5 mg Documented by: [id number] Metoprolol Tartrate (Metoprolol Tartrate 1 Mg/Ml Vial) 2.5 mg IV NOW STA; Protocol Stop: 07/12/21 01:39 Last Admin: 07/12/21 01:58 Dose: 2.5 mg Documented by: [id number] Metoprolol Tartrate (Metoprolol Tartrate 1 Mg/Ml Vial) 5 mg IV Q4 [facility]; Protocol Stop: 08/11/21 19:59 Last Admin: 07/13/21 08:35 Dose: 5 mg Documented by: [id number] Admin: 07/13/21 03:45 Dose: 5 mg Documented by: [id number] Admin: 07/12/21 23:28 Dose: 5 mg Documented by: [id number] Admin: 07/12/21 19:33 Dose: 5 mg Documented by: [id number] Metoprolol Tartrate (Metoprolol Tartrate 1 Mg/Ml Vial) 5 mg IV NOW STA; Protocol Stop: 07/13/21 21:52 Last Admin: 07/13/21 22:00 Dose: Not Given Documented by: [id number] Morphine Sulfate (Morphine Sulfate 2 Mg/Ml Carp) 2 mg IV NOW STA Stop: 07/12/21 11:03 Last Admin: 07/12/21 11:34 Dose: Not Given Documented by: [id number] Morphine Sulfate (Morphine Sulfate 2 Mg/Ml Carp) Confirm Administered Dose 2 mg .ROUTE .STK-MED ONE Stop: 07/12/21 11:04 Last Admin: 07/12/21 11:33 Dose: 2 mg Documented by: [id number] Nitroglycerin (Nitroglycerin 2% Ointment 30gm Tube) Confirm Administered Dose 18 inch .ROUTE .STK-MED ONE Stop: 07/12/21 11:08 Last Admin: 07/12/21 11:35 Dose: Not Given Documented by: [id number] Nitroglycerin (Nitroglycerin 2% Ointment 30gm Tube) 1 inch EXT NOW ONE Stop: 07/12/21 11:08 Last Admin: 07/12/21 11:14 Dose: 1 inch Documented by: [id number] Olanzapine (Olanzapine 10 Mg/2.1 Ml Sdv) 2.5 mg IM NOW STA Stop: 07/12/21 01:39 Last Admin: 07/12/21 01:56 Dose: 2.5 mg Documented by: [id number] Potassium Chloride (Potassium Chloride Crtab 20 Meq Tabcr) 40 meq PO NOW STA Stop: 07/14/21 09:27 Last Admin: 07/14/21 09:53 Dose: 40 meq Documented by: [id number] Description This is a 21 electrode EEG with a single channel dedicated to limited EKG. The electrodes were placed in accordance with the International 10-20 system. REPORT; At the onset of the EEG the patient is in an altered mental state. The background is symmetric but disorganized. There is no posterior dominant rhythm. Instead the background consist of generalized polymorphic 2-3 delta activtiy with intermittent generalized sharply contoured waves with triphasic morphology. Photoc stimulation does not induce any additional abnormalities. Interpretation IMPRESSION: This is an abnormal EEG in a patient with altered mentation due to severe generalized background slowing with intermittent generalized triphasic waves suggestive of severe non specific encephalopathy. Triphasic waves are non specific but often seen in hepatic or uremic encephalopathies.
[2021-07-15 14:27] LABS: Albumin Level 3.9 gm/dl (3.4-5.0); Bilirubin Direct 0.1 mg/dl (0-0.2); Bilirubin,Total 0.4 mg/dl (0.2-1.0); Total Protein 7.5 gm/dl (6.0-8.3)
--- NOTE | 2021-07-15 15:55 | Pharmacy Report ---
Pharmacy Vanc AUC Short Note - Date of Service July 15, 2021 - Assessment & Plan Assessment 41 year old F receiving Vancomycin/Acyclovir/Ceftriaxone for treatment of possible meningitis/encephalitis/metabolic encephalopathy. Day # 2 of antimicrobial therapy. * Patient has been at [facility] since 07/10. Admitted for multifactorial asthma/COPD exacerbation/CAP * Patient does have leukocytosis. Tmax last 24 hours 38.3 at noon 07/15/21. Next temp taken was 37.5 at 1445. * Mental status has not improved, leading to thoughts of possible meningitis/encephalitis/metabolic encephalopathy. * Patient confused but awake. Able to follow simple commands. * Plan to do lumbar puncture. Plan Vancomycin * AUC/YENNI is the preferred PK/PD target for vancomycin * AUC guided dosing is effective and associated with decreased risk of nephrotoxicity compared to traditional trough targets * Trough level of 17.9 mcg/mL is predicted to achieve target AUC/YENNI of 400-600 mg/L.hr and may be associated with a 11 % risk of nephrotoxicity * Continue dose of 1000 mg IV every 12 hours * Trough or random level ordered for: 07/16/21 Acyclovir: Dosing/frequency appropriate based on renal function. Pharmacy will continue to follow and will adjust dose/frequency as necessary. Thank you.
[2021-07-15] MEDS ORDERED: ACETAMINOPHEN 1000 MG/100 ML IV IV PRN (19:34)
[2021-07-15 19:42] LABS: Base Excess ABG -2.3 mEq/L (-9-1.8); HCO3 ABG 21 mmol/L (19-24); Oxygen Saturation ABG 97.4 % (90-95); PCO2 ABG 30 mmHg (35-46); PO2 ABG 90 mmHg (80-95); pH ABG 7.46 (7.35-7.45)
[2021-07-15 19:44] LABS: Allen Test Pos (Pos)
[2021-07-15] MEDS: levETIRAcetam 500 MG in 0.9 % SODIUM CHLORIDE 100 ML IV SCH (20:18)
[2021-07-16] MEDS: LEVALBUTEROL 1.25MG/0.5ML NEB INH SCH ×4 (00:10→19:56)
[2021-07-16] MEDS: IPRATROPIUM BROMIDE NEB SOLN 0.02% 2.5 ML VIAL INH SCH ×4 (00:10→19:56)
[2021-07-16] MEDS: ACYCLOVIR SOD 550 MG in DEXTROSE 5% 100 ML IV SCH ×3 (02:42→19:25)
[2021-07-16] MEDS: VANCOMYCIN HCL 1,000 MG in SODIUM CHLORIDE 0.9% 250 ML IV SCH ×2 (03:58→17:15)
[2021-07-16] MEDS: cefTRIAXone SODIUM 2,000 MG in DEXTROSE 5% 50 ML IV SCH ×2 (06:07→19:26)
[2021-07-16 06:55] LABS: Hematocrit (blood only) 33.8 % (37-47); Hemoglobin 10.8 g/dL (12.0-16.0); Mean Corpuscular Hemoglobin 27.5 pg (25-34); Platelet Count 342 K/uL (130-400); RDW Coefficient of Variation 17.3 % (11.5-14.5); RDW Standard Deviation 54.6 fL (36.4-46.3); Red Blood Count 3.93 M/uL (4.2-5.4); White Blood Count 15.18 K/uL (4.8-10.8)
[2021-07-16 07:22] LABS: Albumin Level 3.9 gm/dl (3.4-5.0); BUN Creatinine Ratio 25.5 (10-20); Bilirubin Direct 0.1 mg/dl (0-0.2); Bilirubin,Total 0.4 mg/dl (0.2-1.0); Calcium 9.1 mg/dl (8.5-10.1); Creatinine Clr Calc Pharmacy 73.4 ml/min; Est GFR (Non-African American) 67.3 ml/min; Magnesium 1.9 mg/dl (1.7-2.4); Phosphorus 3.6 mg/dl (2.5-4.9); Total Protein 7.2 gm/dl (6.0-8.3)
[2021-07-16] MEDS: PANTOprazole 40 MG TAB PO SCH (08:04)
[2021-07-16] MEDS: INSULIN ASPART PER UNIT SC SCH ×4 (08:04→20:28)
[2021-07-16] MEDS: levETIRAcetam 500 MG in 0.9 % SODIUM CHLORIDE 100 ML IV SCH ×2 (08:04→20:27)
[2021-07-16] MEDS: TOPIRAMATE 25 MG TAB PO SCH ×2 (08:04→19:26)
[2021-07-16] MEDS: ESCITALOPRAM OXALATE 20 MG TAB PO SCH (08:05)
[2021-07-16] MEDS: CLOPIDOGREL BISULFATE 75 MG TAB PO SCH (08:05)
[2021-07-16] MEDS: INSULIN GLARGINE SOLOSTAR 100 UNITS/ML 3 ML PEN SC SCH (08:05)
[2021-07-16] MEDS: ATORVASTATIN 40 MG TAB PO SCH (08:05)
[2021-07-16] MEDS: ENOXAPARIN INJ 40 MG/0.4 ML SYR SQ SCH (08:05)
[2021-07-16] MEDS: METOPROLOL SUCC 50MG EXT REL TAB PO SCH (08:05)
[2021-07-16] MEDS: BUPRENORPHINE/NALOXONE 8/2 MG TAB SL SCH ×2 (08:11→19:26)
--- NOTE | 2021-07-16 12:20 | Progress Notes ---
DATE OF SERVICE: 07/16/2021. SUBJECTIVE: I am seeing the patient in followup of encephalopathy. Her EEG yesterday was abnormal d ue to severe generalized background slowing with intermittent generalized triphasic waves suggestive of severe nonspecific encephalopathy. Such waves are nonspecific, but can be seen in hepatic or uremi c encephalopathies. Her hepatic function is normal. Ammonia is normal. BUN and creatinine are not in a range that I would anticipate her to be encephalopathic. The patient was febrile yesterday to a max of 38.4 last evening, current temperature 37.6. Suboxone dose has been decreased in half from a dmission dose. OBJECTIVE: On exam, the patient is awake, still mildly sleepy, but a little more alert than she had been. She denies any pain and is in no distress, although she is slow to answer. She is oriented to person, place, and year. There was no right/left confusion. She followed some simple commands. Na hector was adequate. Her neck is supple. Pupils are equal, not myotic. There is normal facial symmet ry. There is symmetric strength in the upper and lowers. Toes are downgoing. IMPRESSION AND PLAN: Encephalopathy of uncertain etiology, probably poly factorial and related to se psis, hypoxemia, polypharmacy. The patient appears mildly improved today, but has still been febrile . I spoke with Dr. Ashton and by report, the patient is going to have a lumbar puncture today. I n the interim, she has been empirically covered with antibiotics. History of seizure. Continue current dose of Keppra 500 mg b.i.d. No evidence electrically of ongoi ng seizures. We will follow with you. Job ID: [id number]
--- NOTE | 2021-07-16 12:45 | Pulmonology Progress Note ---
Date of Service July 16, 2021 Assessment & Plan (1) Acute respiratory failure with hypoxia: (2) Abnormal CT scan, chest: (3) Acute CHF (congestive heart failure): (4) Aortic stenosis: (5) Altered mental status, unspecified: Plan: 41-year-old female with history of aortic stenosis, diastolic CHF, obesity, opiate abuse, GERD and depression presenting to the hospital due to shortness of breath. Her CT chest findings and acute hypoxemic respiratory failure is likely multifactorial related to acute diastolic CHF, aortic stenosis and a possible element of multifocal pneumonia. Inflammatory lung disease difficult to rule out. Hypoxemia has improved substantially. Recommend outpatient PFTs and chest imaging. Patient has been noncompliant in the past. She is currently off of steroids. She did receive high-dose steroids earlier during this hos pitalization. CHRISTIAN screen negative. Urine drug screen unremarkable. HIV screen pending. ESR and CRP trending down. CK normal. Krystyna 1 antibody and aldolase pending. Urine Legionella antigen and mycoplasma antibodies pending. Bio fire negative. Continue broad-spectrum antibiotics. Encephalopathy is improving and was likely secondary to delirium and hypoxia. Suspect that she likely has some developmental delay or chronic disability. Other etiologies played a factor such as meningitis and/or encephalitis. MRI brain was negative, but without contrast. Neurology following. EEG without sei zure activity. Pulmonary will sign off at this time. Thank you for the consult. Discussed with nursing and hospitalist. Admission and Anticipated Discharge Date Admission Date: July 10, 2021 Subjective Patient is off oxygen at this time. She appears more comfortable. She is answering questions and much more awake and alert. She is slow to answer questions and often repeats herself. Per nursing who has seen her during other admissions, this is not too far from her baseline. She denies any pain. No fevers today. No shortness of breath at rest. She is tolerating her diet. She is asking for more water. Review of Systems Review of Systems: All systems reviewed & are unremarkable except as noted in HPI & below Physical Exam Physical Exam: Constitutional: No apparent distress. Eyes: Pupils are equal round and reactive to light. Conjunctivae are normal. Anicteric sclera. Ears nose, mouth and throat: No obvious deformities. Neck: Trachea is midline. Visual inspection is normal. Respiratory: Coarse crackles improved Cardiovascular: Regular rhythm. Regular rate no edema. Gastrointestinal: Normal bowel sounds, soft, nontender and nondistended. No hepatosplenomegaly noted. Musculoskeletal: No cyanosis. Patient is able to move all extremities. Skin: No rashes, warm dry and intact. Neurologic: No obvious focal neurological deficits seen. Psychiatric: Appears alert and awake. Answers questions appropriately with additional time. Results & Data Results & Data ([facility]) Vital Signs (Past 12 Hours) Vital Signs Temp Pulse Pulse Resp BP Pulse Ox 07/16/21 12:01 37.2 C 94 H 18 142/74 H 98 07/16/21 07:20 82 24 98 07/16/21 07:19 37.6 C H 92 H 18 153/85 H 96 07/16/21 03:07 37.4 C 91 H 20 151/80 H 99 07/16/21 02:58 91 H 22 99 PG Care Time/CCT Total # of Minutes Spent Total Time Spent with Patient: Total time spent is greater than 50% in coordination of care (as documented) at patient's floor/unit and/or counseling patient: Coding Level of Care Code 90529 Subseq Hosp Care Lvl 2 Diagnoses Acute respiratory failure with hypoxia J96.[address] scan, chest R93.89 Acute CHF (congestive heart failure) I50.9 Aortic stenosis I35.0 Altered mental status, unspecified R41.82
--- NOTE | 2021-07-16 13:32 | Procedure Note ---
Procedure Note Date of Service July 16, 2021 Note Procedure Date: July 16, 2021 Procedure: Lumbar puncture Pre-procedure Diagnosis: Encephalopathy fevers Post-procedure Diagnosis: same as above Prior to Procedure: Informed Consent: The risks, benefits, indications, potential complications, and alternatives were explained to the patient and informed consent obtained was assented to. I attempted to contact the patient's contact in the chart; [phone] Ronni Cain. This contact had a voicemail that was not set up and unable to leave message. At this point we will proceed with two-physician consent with myself and Dr. Ashton. Attending Staff: Kirti Jaquez DO Resident/Physician [employer] Manager: Not applicable Indications: Xenia Alvarez is a 41-year-old female patient with encephalopathy and fevers of unclear etiology The identity of the patient was confirmed and a bedside time out was performed. Description of Procedure: Patient was positioned in the upright position, prepped and draped in usual sterile fashion. The L3-4 and L4-5 space located with bilateral iliac crests as landmarks. 1% Lidocaine without epinephrine was used to anesthetize the area. A 19 gauge spinal needle was introduced. After multiple needle passes I was unable to access the subarachnoid space. Further attempts were discontinued. This was an unsuccessful lumbar puncture recommend follow-up with interventional radiology tomorrow. Specimen(s): Not applicable Complications: None Findings: Unsuccessful lumbar puncture Estimated Blood Loss: trace Coding CPT Codes Lumbar Puncture - Lumbar Puncture, Diagnostic: 77496 Lumbar Puncture, Diagnostic ([id number]) [facility] [place] Procedure Codes (Charges) Lumbar Puncture Lumbar Puncture, Diagnostic: 25095 Lumbar Puncture, Diagnostic (Aborted procedure modifier)
--- NOTE | 2021-07-16 13:33 | Hospitalist Progress Note ---
Date of Service July 16, 2021 Assessment & Plan (1) Respiratory failure: Plan: Acute on chronic respiratory failure with Hypoxia Multifactorial:Asthma/COPD exacerbation, CAP, acute on chronic diastolic heart failure Severe sepsis SIRS plus ARF plus hypoxemia secondary to possible pneumonia -CXR:Cardiomegaly with pulmonary vascular congestion. Extensive/diffuse multifocal airspace opacities are similar to yesterday. -Venous Doppler: No sonographic evidence of deep venous thrombosis. -ECHO: EF 50 to 55%. Right ventricle systolic function is normal. Left atrium size is normal. Right atrial size is normal. Moderate valvular aortic stenosis. -Procalcitonin 0.71->0.30 -Blood Cx remain negative so far Cardiology on board. Patient has been getting diuresis [employer] on board. Continue respiratory support. Patient's respiratory status has improved. On prednisone Patient had altered mental status Based on this and leukocytosis (was 28k on admission, improved to 18K) , Possibilities include meningitis/encephalitis/metabolic encephalopathy MRI brain did not show acute abnormalities UDS only positive for opioid (patient on suboxone and got morphine on day of test) Antibiotics was changed to Ceftriaxone, vancomycin and acyclovir to cover for possible meningitis/encephalitis Suboxone dose had been reduced to half home dose Neuro evaluated and recommendations appreciated Though mental status is improving, patient still has fevers Discussed with Neurologist. Recommend to still get LP Plan to get LP by [facility] today. Follow up repeat cultures sent yesterday Acute Kidney Injury Cr:1.44->1.16->0.93>0.79>1.02 AJIT now resolved Lisinopril has been on hold CAD S/P Stent Mild troponin elevation--likely demand ischemia secondary to hypoxia Continue home medications Cardiology recs appreciated Hypertension Lisinopril held Continue metoprolol Hyperlipidemia On statin H/O HCV Not been treated Patient to f/u with [facility] outpatient DM II HbA1C: 7.1 Hold p.o. meds Continue insulin while hospitalized Monitor BGs Seizure disorder On keppra H/O DVT Status post anticoagulation Chronic pain H/O polysubstance abuse Ongoing tobacco abuse On Suboxone Will provide more counselling once stabilized DVT Px: Lovenox held for LP Dispo : PCU Code Status Full Code Admission and Anticipated Discharge Date Admission Date: July 10, 2021 Subjective Patient seen and examined today. Patient is more awake and interactive today Oriented to person and place today Denied any headache, dizziness Denied cough, shortness of breath, chest pain Denied abd pain, nausea, vomiting, diarrhea Was sitting up but occasionally dozes off Currently on room air. Limited insight into current medical illness Physical Exam Constitutional: + obese; no acute distress Eyes: PERRL, conjunctivae normal, anicteric sclerae ENMT: external ear and nose normal, oropharynx normal Respiratory: normal respiratory effort; no respiratory distress Air entry into lungs improved Cardiovascular: Rate/Rhythm: regular rate and regular rhythm S1 S2 Gastrointestinal (Abdomen): normal bowel sounds, soft, nontender, no hepatosplenomegaly Musculoskeletal: no cyanosis or clubbing, extremities motor strength 5/5 Neurologic: Oriented to person and place today Follows simple commands No focal neurological deficits Limited insight Genitourinary: [place] in situ Results & Data Results & Data ([facility]) Vital Signs (Past 12 Hours) Vital Signs Temp Pulse Pulse Resp BP Pulse Ox 07/16/21 12:01 37.2 C 94 H 18 142/74 H 98 07/16/21 07:20 82 24 98 07/16/21 07:19 37.6 C H 92 H 18 153/85 H 96 07/16/21 03:07 37.4 C 91 H 20 151/80 H 99 07/16/21 02:58 91 H 22 99 Laboratory Results Abnormal lab results 07/15/21 07/15/21 07/15/21 Range/Units 16:00 19:33 20:08 WBC (4.8-10.8) K/uL RBC (4.2-5.4) M/uL Hgb (12.0-16.0) g/dL Hct (37-47) % RDW Std Deviation (36.4-46.3) fL RDW Coeff of Hannah (11.5-14.5) % ABG pH 7.46 H (7.35-7.45) ABG pCO2 30 L (35-46) mmHg ABG O2 Saturation 97.4 H (90-95) % Chloride (98-107) mmol/L Carbon Dioxide (21-32) mmol/L BUN (6-23) mg/dl BUN/Creatinine Ratio (10-20) Glucose (70-99(Fasting)) mg/dl POC Glucose 194 H 112 H (70-99) mg/dl 07/16/21 07/16/21 07/16/21 Range/Units 06:16 06:16 07:10 WBC 15.18 H (4.8-10.8) K/uL RBC 3.93 L (4.2-5.4) M/uL Hgb 10.8 L (12.0-16.0) g/dL Hct 33.8 L (37-47) % RDW Std Deviation 54.6 H (36.4-46.3) fL RDW Coeff of Hannah 17.3 H (11.5-14.5) % ABG pH (7.35-7.45) ABG pCO2 (35-46) mmHg ABG O2 Saturation (90-95) % Chloride 119 H (98-107) mmol/L Carbon Dioxide 20 L (21-32) mmol/L BUN 26 H (6-23) mg/dl BUN/Creatinine Ratio 25.5 H (10-20) Glucose 118 H (70-99(Fasting)) mg/dl POC Glucose 152 H (70-99) mg/dl 07/16/21 Range/Units 11:08 WBC (4.8-10.8) K/uL RBC (4.2-5.4) M/uL Hgb (12.0-16.0) g/dL Hct (37-47) % RDW Std Deviation (36.4-46.3) fL RDW Coeff of Hannah (11.5-14.5) % ABG pH (7.35-7.45) ABG pCO2 (35-46) mmHg ABG O2 Saturation (90-95) % Chloride (98-107) mmol/L Carbon Dioxide (21-32) mmol/L BUN (6-23) mg/dl BUN/Creatinine Ratio (10-20) Glucose (70-99(Fasting)) mg/dl POC Glucose 221 H (70-99) mg/dl
[2021-07-16] MEDS ORDERED: LIDOCAINE 1% LOCAL 20 ML VIAL ONE (14:01)
[2021-07-16] MEDS ORDERED: VANCOMYCIN TROUGH ONE (15:30)
[2021-07-16] MEDS: VANCOMYCIN HCL 1,250 MG in SODIUM CHLORIDE 0.9% 250 ML IV SCH (17:46)
--- NOTE | 2021-07-16 19:11 | Pharmacy Report ---
Pharmacy Vanc AUC Short Note - Date of Service July 16, 2021 - Assessment & Plan Assessment 41 year old F receiving vancomycin, ceftriaxone, and acyclovir for empiric treatment of meningitis/encephalitis. Pertinent microbiologic data includes: Blood cultures on 07/10 and 07/15 so far show no growth. Lumbar puncture performed today. Day # 3 of vancomycin therapy. Plan Vancomycin * AUC/YENNI is the preferred PK/PD target for vancomycin * AUC guided dosing is effective and associated with decreased risk of nephrotoxicity compared to traditional trough targets * Trough level of 11.4 mcg/mL is predicted to achieve target AUC/YENNI of 400-600 mg/L.hr, however given concern for meningitis, will increase dose today to 1250 mg IV q12h for higher probability of achieving goal AUC/YENNI with only a 11 % risk of nephrotoxicity Ceftriaxone * 2 g IV q12h remains appropriate while concerned for meningitis Acyclovir * 550 mg IV q8h (10 mg/kg of ideal body weight) remains appropriate based on indication/renal function Pharmacy will continue to follow and will adjust dose/frequency as necessary. Thank you.
[2021-07-17] MEDS: IPRATROPIUM BROMIDE NEB SOLN 0.02% 2.5 ML VIAL INH SCH ×3 (00:32→12:47)
[2021-07-17] MEDS: LEVALBUTEROL 1.25MG/0.5ML NEB INH SCH ×3 (00:32→12:47)
[2021-07-17] MEDS: ACYCLOVIR SOD 550 MG in DEXTROSE 5% 100 ML IV SCH ×2 (02:49→11:18)
[2021-07-17] MEDS: VANCOMYCIN HCL 1,250 MG in SODIUM CHLORIDE 0.9% 250 ML IV SCH (05:27)
[2021-07-17] MEDS: levETIRAcetam 500 MG in 0.9 % SODIUM CHLORIDE 100 ML IV SCH (07:15)
[2021-07-17] MEDS: cefTRIAXone SODIUM 2,000 MG in DEXTROSE 5% 50 ML IV SCH (07:15)
[2021-07-17 07:46] LABS: Hematocrit (blood only) 32.7 % (37-47); Hemoglobin 10.9 g/dL (12.0-16.0); Mean Corpuscular Hemoglobin 28.3 pg (25-34); Mean Corpuscular Hgb Conc 33.3 g/dL (32-36); Mean Corpuscular Volume 84.9 fL (80-100); Mean Platelet Volume 9.9 fL (7.4-10.4); Platelet Count 294 K/uL (130-400); RDW Coefficient of Variation 17.2 % (11.5-14.5); RDW Standard Deviation 53.6 fL (36.4-46.3); Red Blood Count 3.85 M/uL (4.2-5.4); White Blood Count 20.55 K/uL (4.8-10.8)
[2021-07-17] MEDS: ATORVASTATIN 40 MG TAB PO SCH (07:52)
[2021-07-17] MEDS: INSULIN ASPART PER UNIT SC SCH ×2 (07:52→11:50)
[2021-07-17] MEDS: PANTOprazole 40 MG TAB PO SCH (07:53)
[2021-07-17] MEDS: CLOPIDOGREL BISULFATE 75 MG TAB PO SCH (07:53)
[2021-07-17] MEDS: ESCITALOPRAM OXALATE 20 MG TAB PO SCH (07:53)
[2021-07-17] MEDS: INSULIN GLARGINE SOLOSTAR 100 UNITS/ML 3 ML PEN SC SCH (07:53)
[2021-07-17] MEDS: METOPROLOL SUCC 50MG EXT REL TAB PO SCH (07:53)
[2021-07-17] MEDS: TOPIRAMATE 25 MG TAB PO SCH (07:53)
[2021-07-17] MEDS: BUPRENORPHINE/NALOXONE 8/2 MG TAB SL SCH (07:59)
[2021-07-17 08:11] LABS: BUN Creatinine Ratio 21.7 (10-20); Calcium 8.4 mg/dl (8.5-10.1); Creatinine Clr Calc Pharmacy 91.6 ml/min; Est GFR (African American) 100.1 ml/min; Est GFR (Non-African American) 86.4 ml/min; Potassium 3.7 mmol/L (3.5-5.1)
[2021-07-17 11:30] VITALS: O2SAT 97
--- NOTE | 2021-07-17 14:02 | Hospitalist Progress Note ---
Date of Service July 17, 2021 Assessment & Plan (1) Respiratory failure: Plan: Acute on chronic respiratory failure with Hypoxia Multifactorial:Asthma/COPD exacerbation, CAP, acute on chronic diastolic heart failure Severe sepsis SIRS plus ARF plus hypoxemia secondary to possible pneumonia -CXR:Cardiomegaly with pulmonary vascular congestion. Extensive/diffuse multifocal airspace opacities are similar to yesterday. -Venous Doppler: No sonographic evidence of deep venous thrombosis. -ECHO: EF 50 to 55%. Right ventricle systolic function is normal. Left atrium size is normal. Right atrial size is normal. Moderate valvular aortic stenosis. -Procalcitonin 0.71->0.30 -Blood Cx remain negative so far Patient got diuresis Required BIPAP for sometime Respiratory failure improved. Weaned off BIPAP and currently on room air Patient had altered mental status Based on this and leukocytosis (was 28k on admission, improved to 18K) , Possibilities include meningitis/encephalitis/metabolic encephalopathy MRI brain did not show acute abnormalities UDS only positive for opioid (patient on suboxone and got morphine on day of test) Antibiotics was changed to Ceftriaxone, vancomycin and acyclovir to cover for possible meningitis/encephalitis Suboxone dose had been reduced to half home dose Neuro evaluated and recommendations appreciated Multiple LP attempts were unsuccessful Patient AMS has completely resolved now. Patient is back to baseline Still has leukocytosis today at 20k Last fever was 2 days ago Discussed with neurologist. Will stop antibiotics/antiviral for now and monitor Acute Kidney Injury Cr:1.44->1.16->0.93>0.79>0.83 AJIT now resolved Lisinopril has been on hold CAD S/P Stent Mild troponin elevation--likely demand ischemia secondary to hypoxia Continue home medications Cardiology recs appreciated Hypertension Lisinopril held. Plan to resume tomorrow Continue metoprolol Hyperlipidemia On statin H/O HCV Not been treated Patient to f/u with [facility] outpatient DM II HbA1C: 7.1 Hold p.o. meds Continue insulin while hospitalized Monitor BGs Seizure disorder On keppra H/O DVT Status post anticoagulation Chronic pain H/O polysubstance abuse Ongoing tobacco abuse On Suboxone Counseled regarding smoking DVT Px: Lovenox held for LP Dispo : PCU Code Status Full Code Admission and Anticipated Discharge Date Admission Date: July 10, 2021 Subjective Patient seen and examined today. Patient is alert, awake and oriented to person today Denied any headache, dizziness Denied cough, shortness of breath, chest pain Denied abd pain, nausea, vomiting, diarrhea Currently on room air. Physical Exam Constitutional: + obese; no acute distress Eyes: PERRL, conjunctivae normal, anicteric sclerae ENMT: external ear and nose normal, oropharynx normal Respiratory: normal respiratory effort, lungs clear to auscultation Cardiovascular: Rate/Rhythm: regular rate and regular rhythm S1 S2 Gastrointestinal (Abdomen): normal bowel sounds, soft, nontender, no hepatos plenomegaly Musculoskeletal: no cyanosis or clubbing, extremities motor strength 5/5 Neurologic: PERRL, EOMI, accommodation nl, no face palsy, no dysarthria Psychiatric: A+Ox3, euthymic affect Results & Data Results & Data ([facility]) Vital Signs (Past 12 Hours) Vital Signs Temp Pulse Pulse Resp BP Pulse Ox 07/17/21 12:48 84 18 97 07/17/21 11:29 36.6 C 84 16 123/72 97 07/17/21 08:26 82 07/17/21 07:40 65 20 98 07/17/21 07:25 36.5 C 99 H 16 147/83 H 95 07/17/21 03:30 84 20 99 07/17/21 03:00 36.9 C 82 20 144/85 H 100 Laboratory Results Abnormal lab results 07/16/21 07/17/21 07/17/21 Range/Units 20:09 07:06 07:27 WBC 20.55 H (4.8-10.8) K/uL RBC 3.85 L (4.2-5.4) M/uL Hgb 10.9 L (12.0-16.0) g/dL Hct 32.7 L (37-47) % RDW Std Deviation 53.6 H (36.4-46.3) fL RDW Coeff of Hannah 17.2 H (11.5-14.5) % Chloride (98-107) mmol/L Carbon Dioxide (21-32) mmol/L BUN/Creatinine Ratio (10-20) Glucose (70-99(Fasting)) mg/dl POC Glucose 101 H 117 H (70-99) mg/dl Calcium (8.5-10.1) mg/dl 07/17/21 07/17/21 07/17/21 Range/Units 07:27 11:09 16:04 WBC (4.8-10.8) K/uL RBC (4.2-5.4) M/uL Hgb (12.0-16.0) g/dL Hct (37-47) % RDW Std Deviation (36.4-46.3) fL RDW Coeff of Hannah (11.5-14.5) % Chloride 109 H (98-107) mmol/L Carbon Dioxide 20 L (21-32) mmol/L BUN/Creatinine Ratio 21.7 H (10-20) Glucose 113 H (70-99(Fasting)) mg/dl POC Glucose 158 H 153 H (70-99) mg/dl Calcium 8.4 L (8.5-10.1) mg/dl
--- NOTE | 2021-07-17 14:17 | Neurology Progress Note ---
Date of Service July 17, 2021 Assessment & Plan (1) Altered mental status, unspecified: Plan: 1. improving and no longer requiring O2 2. WBC are still elevated and increased from yesterday 3. PT/OT for discharge needs 4. unclear who she follows for her seizure if needed we could see her as outpatient 5. follow up with pulmonary and PCP as scheduled. ok to discharge from neurology stand point (2) Acute respiratory failure with hypoxia: Admission and Anticipated Discharge Date Admission Date: July 10, 2021 Supervising Physician Co-Signing Physician Notes I have seen and discussed above patient with Dr Gloria Lange, neurology Patient seen and examined. She is markedly improved today. Lumbar puncture was attempted unsuccessfully yesterday. Patient is back to baseline and lumbar puncture is not to be performed. Her encephalopathy was likely polyfactorial related to hypoxemia infection hospitalization polypharmacy. She is markedly improved on a lower dose of Suboxone which is of note and she is not complaining of pain. She also does not appear to be in withdrawal. Evidence of seizure was noted on EEG. With regard to the antibiotics that were used empirically to treat presumed meningitis agree with discontinuation and monitoring for fever or elevated of white count which in that case would prompt a lumbar puncture under fluoroscopic guidance. Patient should follow-up with [facility] physician group neurology where she is established. We will sign off Subjective Fritz is a 41 year old right-handed female with PMH- chronic diastolic heart failure, CAD, status post stent, [id number] aortic stenosis on TTE in 2020, HTN, HLD, history of hepatitis C, DM2, asthma, ongoing tobacco abuse, DVT, seizure disorder, mood disorder, chronic anemia, chronic pain on Suboxone; history of polysubstance abuse and ongoing tobacco abuse. She was confined in 10/2020 for sepsis secondary to respiratory failure and bacteremia and encephalopathic at that time.She was congested and had cough, shortness of breath, weight gain and fluid retention and sleepy and weaker she was sent to the ED [facility] 07/10/2021 with respiratory failure, severe sepsis, SIRS plus acute renal failure plus hypoxemia secondary to pneumonia.She has had an ongoing complicated course requiring BiPAP.Neurology was consulted due to not improving with treatment. Respiratory status has improved without an improvement on mentation. Leukocytosis, which was 28,000 and is improved to 18,000 and there was a concern regarding meningitis or encephalitis or encephalopathy. MRI of the brain, does not show any acute abnormalities. Her tox screen on admission was notable for opioids and the patient is on Suboxone and got morphine on the day of the blood draw. she was then started on antibiotics were switched to ceftriaxone, vancomycin and acyclovir LP was not done. She feels ready to go home. She lives with her boyfriend who is going to be primary healthcare or medical. She has been out of bed to the bathroom and is doing well. denies CP SOB, abdominal pain, one sided weakness, numbness tingling. Review of Systems Review of Systems: All systems reviewed & are unremarkable except as noted in HPI & below Physical Exam Physical Exam: Physical Exam: Constitutional: appearance over nourished, healthy Ears, Nose, Mouth and Throat: mucous membranes moist, no injection and skin normal, eyes normal Cardiovascular: normal S-1 and S-2 and regular rate and rhythm Respiratory: clear to auscultation (CTA) and no rales, ronchi or wheeze Musculoskeletal: no peripheral edema and good distal pulses Skin: no stigmata of neurocutaneous disease noted and normal and intact Eyes: extraocular muscles intact (EOMI) and pupils equal, round and reactive to light (PERRL) NEUROLOGIC EXAMINATION: Mental status: Alert and interactive Oriented [facility], lives in [place] on [address] with her boyfriends, 2021, Biden president Oriented to person Speech fluent with no evidence of aphasia Cranial Nerves smile eye brow raise symmetric Reflexes: Deep tendon reflexes were symmetrical and graded 2/5. Sensory: no sensory deficits to light and cool touch Coordination: finger to nose no bipass Gait/Stance: Posture lying in bed Motor: Negative for pronator drift of out stretched arms with eyes closed. Strength: hand floriculturist biceps triceps 5/5 bilaterally hip flex 5/5 plantar flex ext 5/5 Results & Data ([facility]) Vital Signs (Past 12 Hours) Vital Signs Temp Pulse Pulse Resp BP Pulse Ox 07/17/21 12:48 84 18 97 07/17/21 11:29 36.6 C 84 16 123/72 97 07/17/21 08:26 82 07/17/21 07:40 65 20 98 07/17/21 07:25 36.5 C 99 H 16 147/83 H 95 07/17/21 03:30 84 20 99 07/17/21 03:00 36.9 C 82 20 144/85 H 100 Laboratory Results Abnormal lab results 07/16/21 07/16/21 07/17/21 Range/Units 16:31 20:09 07:06 WBC (4.8-10.8) K/uL RBC (4.2-5.4) M/uL Hgb (12.0-16.0) g/dL Hct (37-47) % RDW Std Deviation (36.4-46.3) fL RDW Coeff of Hannah (11.5-14.5) % Chloride (98-107) mmol/L Carbon Dioxide (21-32) mmol/L BUN/Creatinine Ratio (10-20) Glucose (70-99(Fasting)) mg/dl POC Glucose 112 H 101 H 117 H (70-99) mg/dl Calcium (8.5-10.1) mg/dl 07/17/21 07/17/21 07/17/21 Range/Units 07:27 07:27 11:09 WBC 20.55 H (4.8-10.8) K/uL RBC 3.85 L (4.2-5.4) M/uL Hgb 10.9 L (12.0-16.0) g/dL Hct 32.7 L (37-47) % RDW Std Deviation 53.6 H (36.4-46.3) fL RDW Coeff of Hannah 17.2 H (11.5-14.5) % Chloride 109 H (98-107) mmol/L Carbon Dioxide 20 L (21-32) mmol/L BUN/Creatinine Ratio 21.7 H (10-20) Glucose 113 H (70-99(Fasting)) mg/dl POC Glucose 158 H (70-99) mg/dl Calcium 8.4 L (8.5-10.1) mg/dl Diagnostic Findings no new imaging
[2021-07-17 14:33] VITALS: BP 129/71; PULSE 97; TEMP 98.1
--- NOTE | 2021-07-17 17:58 | Discharge Summary ---
Date of Service July 17, 2021 Admission HPI Per Admitting Provider History obtained from patient and records. History somewhat limited from patient secondary to lethargic state. Medical history significant for chronic diastolic heart failure (EF 60 to 65%, TTE 2020 ), CAD status post stent, moderate to severe aortic stenosis on TTE 2020, hypertension, hyperlipidemia, hx HCV, DM2 on oral medications, asthma, ongoing tobacco abuse, past history DVT status post oral anticoagulation, seizure disorder, mood disorder, chronic anemia (baseline hemoglobin 9-10), chronic pain on Suboxone, hx polysubstance abuse, ongoing tobacco abuse Last confinement October 2020 for sepsis secondary to respiratory failure secondary to community-acquired pneumonia, gram-negative gale bacteremia. 1 week history of congestion, junky cough symptoms worsening shortness of breath, weight gain and fluid retention as per patient. Patient not sure about sick contacts. Denies aspiration. Covid vaccine 1 dose. Patient feeling more weak as per boyfriend. Noted to be more sleepy. Patient called PCPs office. ER evaluation recommended if with worsening. EMS noted patient to be hypoxemic at home. At the ER, patient received Solu-Medrol, cefepime, doxycycline, and neb treatment at the ER. MEDICAL HISTORY: SURGERIES INCLUDE: Cholecystectomy, Tonsillectomy, Dental procedure, Wrist abscess drainage, back surgery, thigh/knee surgery FAMILY HISTORY: HTN, DM, heart disease, Crohn's disease PERSONAL/SOCIAL HISTORY: Half pack daily, no EtOH intake, unemployed, lives with boyfriend Admission Exam Per Admitting Provider GENERAL: uncomfortable, lethargic, obese, respiratory distress SKIN: Pallor , warm HEENT: Pale palpebral conjunctivae, no ptosis, dry buccal mucosa, BiPAP in place NECK : Supple, short neck, no tenderness CHEST : Decreased breath sounds, occasional expiratory wheezes, no tenderness HEART : Tachycardic, systolic murmur ABDOMEN: distention, nontender EXTREMITIES : Bilateral LE swelling, no LE tenderness, no other conspicuous deformities noted NEUROLOGIC : Lethargic, no facial asymmetry, no other gross focality Principal Diagnosis Acute respiratory failure with hypoxia Altered mental status, Acute kidney injury Discharge Exam Constitutional + obese; no acute distress Eyes PERRL, conjunctivae normal, anicteric sclerae ENMT external ear and nose normal, oropharynx normal Respiratory normal respiratory effort, lungs clear to auscultation no respiratory distress Cardiovascular Rate/Rhythm: regular rate and regular rhythm S1-S2 Gastrointestinal (Abdomen) normal bowel sounds, soft, nontender, no hepatosplenomegaly Musculoskeletal no cyanosis or clubbing, extremities motor strength 5/5 Neurologic PERRL, EOMI, accommodation nl, no face palsy, no dysarthria Psychiatric A+Ox3, euthymic affect Discharge Data Allergies Allergy/AdvReac Type Severity Reaction Status Date / Time lidocaine Allergy Intermediate HIVES Verified 07/10/21 21:33 procaine Allergy Intermediate HIVES Verified 07/10/21 21:33 Penicillins Allergy Mild HAD NO Verified 07/10/21 21:33 PROBLEM WITH ZOSYN strawberry Allergy Mild HIVES Verified 07/10/21 21:33 cephalexin AdvReac Intermediate YEAST Verified 07/10/21 21:33 INFECTIONS tramadol AdvReac Intermediate SEIZURES Verified 07/10/21 21:33 azithromycin AdvReac Mild STOMACH Verified 07/10/21 21:33 PAIN Consultations 07/10/21 21:05 ED Decision to Admit Stat 07/11/21 06:59 Consult Cardiology Routine 07/12/21 08:40 Consult Pulmonology Routine 07/12/21 11:11 Consult Telecommunication Operator Routine 07/14/21 18:06 Consult Neurology Routine 07/16/21 08:13 Consult Telecommunication Operator Routine Ordered Studies 07/10/21 18:54 CT head/brain wo con Stat Brain parenchyma: The brain parenchyma is normal in appearance. There is no hemorrhage, mass effect, or evidence of acute territorial ischemia by CT criteria. Enriquez-white matter differentiation is preserved. No extra-axial fluid collection is seen. Ventricles, sulci, cisterns: Normal in configuration. Intracranial vasculature: There is mild atherosclerotic calcification of the cavernous carotid arteries. Calvarium: Unremarkable. Sinuses and mastoids: The visualized paranasal sinuses are clear. The mastoid air cells are well pneumatized. Orbits: The bony orbits are grossly intact. IMPRESSION: No acute intracranial abnormality. 07/10/21 19:33 CT chest diagnostic wo con Stat Thyroid: The thyroid gland is mildly enlarged and heterogeneous. Calcifications are noted in the left lobe. Thoracic aorta: There is atherosclerotic calcification of the thoracic aorta, which is normal in caliber and demonstrates standard 3-vessel arch anatomy. Heart: The heart is enlarged and without pericardial effusion. The coronary arteries are densely calcified. Lungs and pleural spaces: Mild emphysematous change is noted. There is diffuse intralobular septal thickening. Patchy/geographic groundglass opacities are seen throughout both lungs. No pleural effusion is identified. The trachea and central airways are clear. Mediastinum: Mediastinal lymphadenopathy similar to previous. Prevascular nodes measure up to 1.5 cm in short axis. Paratracheal nodes measure up to 1.9 cm in short axis, and subcarinal nodes measure up to 2.4 cm in short axis. Sameera: Not well assessed without IV contrast. Axillae: There is no axillary lymphadenopathy. Upper abdomen: Partially visualized upper abdominal viscera is within normal limits. Skeletal structures: The skeletal structures are osteopenic. No lytic or blastic bony lesions are seen. IMPRESSION: 1. Cardiomegaly and emphysema. 2. Mediastinal lymphadenopathy is similar to previous. 3. There is diffuse intralobular septal thickening with geographic groundglass consolidation in a somewhat mosaic distribution. Differential considerations include pulmonary edema, an infectious/inflammatory pneumonitis, pulmonary hemorrhage, and/or hypersensitivity pneumonitis. This is similar in appearance to prior studies, and has waxed and waned over prior chest CT scans. Clinical correlation will be essential. Pulmonology follow-up is recommended. 4. There is no pleural effusion. 5. Additional findings as above. 07/11/21 09:00 US venous doppler LE RT Stat Normal flow, compressibility, phasicity and augmentation. IMPRESSION: No sonographic evidence of deep venous thrombosis. 07/14/21 09:21 MR brain wo con Routine Brain parenchyma: The brain parenchyma is normal in appearance. There is no hemorrhage or mass effect. There is no restricted diffusion to suggest acute ischemia. Enriquez-white matter differentiation is preserved. No extra-axial fluid collection is seen. Mild cerebellar tonsillar ectopia is unchanged. Ventricles, sulci, and cisterns: Normal in configuration. Pituitary and sella: Unremarkable. Intracranial vasculature: Normal flow voids are maintained at the skull base. Orbits: The bony orbits are grossly intact. Orbital contents are normal in appearance. Sinuses and mastoids: The paranasal sinuses are clear. There is trace left mastoid effusion. Calvarium: Unremarkable. Cervical cord: Partially visualized cervical spinal cord is normal in morphology and signal intensity. IMPRESSION: No acute intracranial abnormality. Hospital Course (1) Respiratory failure: Acute on chronic respiratory failure with Hypoxia Multifactorial:Asthma/COPD exacerbation, CAP, acute on chronic diastolic heart failure Severe sepsis SIRS plus ARF plus hypoxemia secondary to possible pneumonia -CXR:Cardiomegaly with pulmonary vascular congestion. Extensive/diffuse multifocal airspace opacities are similar to yesterday. -Venous Doppler: No sonographic evidence of deep venous thrombosis. -ECHO: EF 50 to 55%. Right ventricle systolic function is normal. Left atrium size is normal. Right atrial size is normal. Moderate valvular aortic stenosis. -Procalcitonin 0.71->0.30 -Blood Cx remain negative so far Patient was treated with antibiotics Was comanaged with the Branch Operation Evaluation Manager and Machine Greaser Required brief stay in ICU for resp failure but was not intubated Patient got diuresis Required BIPAP for sometime Respiratory failure improved. Weaned off BIPAP and currently on room air Patient had altered mental status Based on this and leukocytosis (was 28k on admission, 20K today), Possibilities include meningitis/encephalitis/metabolic encephalopathy MRI brain did not show acute abnormalities UDS only positive for opioid (patient on suboxone and got morphine on day of test) Antibiotics was changed to Ceftriaxone, vancomycin and acyclovir to cover for possible meningitis/encephalitis Suboxone dose was reduced to half home dose Neuro evaluated Multiple LP attempts were unsuccessful Patient AMS has completely resolved now. Patient is back to baseline today Still has leukocytosis today at 20k Last fever was 2 days ago Discussed with neurologist. Plan was made to stop antibiotics/antiviral for today and monitor Patient decided she wants to go home I spent sometime explaining to the patient the need to stay to optimize aide tment and ensure full recovery. She understood risks of leaving AMA She signed out AMA Acute Kidney Injury Cr:1.44->1.16->0.93>0.79>0.83 AJIT now resolved CAD S/P Stent Hypertension Mild troponin elevation--likely demand ischemia secondary to hypoxia Continue home medications H/O HCV Not been treated Patient to f/u with [facility] outpatient DM II HbA1C: 7.1 Continue home diabetic regimen Seizure disorder On keppra H/O DVT Status post anticoagulation Chronic pain H/O polysubstance abuse Ongoing tobacco abuse On Suboxone Counseled regarding smoking Total Time Total Time Spent Total Time Spent (In Minutes): 40 Total Time Includes: Examination of the Patient, Communication With Other Providers and Other Discharge Plan Discharge Items Patient Disposition: Against Medical Advice Reason For Visit: RESP FAILURE Activity: Resume your previous activity Non-emergency contact: Primary Care Provider, Machine Greaser and Neurologist Follow-up/Referrals: Irvin Iverson MD [Primary Care Provider] - Pending Studies at Discharge: No Stand-Alone Forms: My [facility], Smoking Cessation Medications and DC Order Prescriptions: Continued cyclobenzaprine 10 mg tablet 10 mg PO BID RF: 0 atorvastatin 80 mg tablet 80 mg PO DAILY RF: 0 torsemide 20 mg tablet 20 mg PO BID RF: 0 albuterol sulfate 2.5 mg /3 mL (0.083 %) solution for nebulization 2.5 mg inhalation Q4 PRN (Reason: WHEEZE/COUGH) RF: 0 trazodone 50 mg tablet 25 - 50 mg PO HS RF: 0 polyethylene glycol 3350 [Miralax] 17 gram Powder In Packet 17 g PO DAILY PRN (Reason: Constipation) RF: 0 levetiracetam 500 mg tablet 500 mg PO BID RF: 0 glipizide 10 mg Tablet 10 mg PO DAILY RF: 0 topiramate 25 mg tablet 25 mg PO BID RF: 0 clopidogrel 75 mg tablet 75 mg PO DAILY RF: 0 spironolactone 25 mg tablet 25 mg PO DAILY RF: 0 meloxicam 7.5 mg tablet 7.5 mg PO DAILY RF: 0 potassium chloride [Klor-Con M20] 20 mEq tablet,ER particles/crystals 20 meq PO DAILY RF: 0 benzonatate 100 mg capsule 100 mg PO TID PRN (Reason: Cough) RF: 0 metformin 1,000 mg tablet 1,000 mg PO BID RF: 0 lisinopril 5 mg tablet 2.5 mg PO DAILY RF: 0 metoprolol succinate 25 mg tablet extended release 24 hr 25 mg PO DAILY RF: 0 albuterol sulfate 90 mcg/actuation HFA aerosol inhaler 2 puff INHALATION Q4 PRN (Reason: Shortness Of Breath Or Wheezing) RF: 0 medroxyprogesterone 150 mg/mL suspension 150 mg IM .Q3MO RF: 0 loratadine 10 mg Tablet 10 mg PO DAILY RF: 0 buspirone 15 mg Tablet 15 mg PO BID RF: 0 escitalopram oxalate 20 mg tablet 20 mg PO DAILY RF: 0 buprenorphine-naloxone 8-2 mg tablet, sublingual 0.5 tab SUBLINGUAL TID RF: 0 omeprazole 20 mg Tablet,Delayed Release (Dr/Ec) 20 mg PO DAILY RF: 0 Discontinued fluconazole 150 mg Tablet 150 mg PO .ONE TIME DOSE RF: 0 doxycycline hyclate 100 mg Tablet 100 mg PO BID RF: 0 Discharge Orders: Discharge Order (Routine); Ordered 07/17/21 Ordered By: Daisha Wheatley Left Against Medical Advice (Routine); Ordered 07/17/21 Ordered By: Daisha Connolly/Other Patient Handouts: Hypoglycemia (Low Blood Sugar), Managing Type 2 Diabetes Admission Data Admit Date/Time: 07/10/21 22:57 Attending Provider: Daisha Wheatley I. Admit Provider: Malvin Jaime Primary Care Provider: Irvin Iverson Other Providers: Kevin Shah ; Malvin Jaime ; Sandeep Hall ; Wesley Rutherford ; Paresh Gonzales ; Max Gil ; Ryan Robertson ; Dale Sierra ; Niru Mixon ; Gloria Casiano ; Laina Greer ; Jeffrey Barbour ; John Loaiza ; Enrique Jaquez ; Gloria Lange Other Interventions: Discharge Summary Assessment (RN) Last Done: 07/17/21 17:01
[2021-07-18] MEDS ORDERED: VANCOMYCIN TROUGH ONE (04:30)
[2021-07-21 22:51] LABS: Aldolase 11.1 U/L (< OR = 8.1); JO 1 Antibody <1.0 NEG AI (<1.0 NEG); Mycoplasma pneumoniae Ab, IgG 1.02 (<=0.90); Mycoplasma pneumoniae Ab, IgM 58 U/mL (<770)
== END 2021-07-17 18:01 | disposition left against medical advice (07) | DRG 871 ==
LOC: ED 18:32 → SUATTDRO 22:57 → 2S 22:57 → 1E 07-12 13:10 → 2S 07-15 14:44

== ENCOUNTER 2022-03-03 03:39 | Inpatient (IN) ==
--- NOTE | 2022-03-03 04:32 | Emergency Department Note ---
History of Present Illness General Chief complaint: Respiratory Distress Time Seen by Provider: 03/03/22 03:43 History of Present Illness 42-year-old female presents emergency department via EMS in respiratory distress reportedly called for shortness of breath that started yesterday. Patient is a patient with COPD pulse oximetry was found to be less than 40% per EMS they started her on a nonrebreather and then changed over to CPAP with great improvement. Patient does state increased shortness of breath cough congestion over the past few days. There are no other complaints. Home Medications Medication Instructions Recorded Confirmed Type albuterol sulfate 2.5 mg/3 mL 2.5 mg inhalation Q4 PRN 07/10/21 07/10/21 History (0.083 %) solution for nebulization WHEEZE/COUGH albuterol sulfate 90 mcg/actuation 2 puff inhalation Q4 PRN Shortness 07/10/21 07/10/21 History aerosol inhaler Of Breath Or Wheezing atorvastatin 80 mg tablet 80 mg PO DAILY 07/10/21 07/10/21 History benzonatate 100 mg capsule 100 mg PO TID PRN Cough 07/10/21 07/10/21 History buprenorphine 8 mg-naloxone 2 mg 0.5 tab sublingual TID 07/10/21 07/10/21 History sublingual tablet buspirone 15 mg tablet 15 mg PO BID 07/10/21 07/10/21 History clopidogrel 75 mg tablet 75 mg PO DAILY 07/10/21 07/10/21 History cyclobenzaprine 10 mg tablet 10 mg PO BID 07/10/21 07/10/21 History escitalopram oxalate 20 mg tablet 20 mg PO DAILY 07/10/21 07/10/21 History glipizide 10 mg tablet 10 mg PO DAILY 07/10/21 07/10/21 History levetiracetam 500 mg tablet 500 mg PO BID 07/10/21 07/10/21 History lisinopril 5 mg tablet 2.5 mg PO DAILY 07/10/21 07/10/21 History loratadine 10 mg tablet 10 mg PO DAILY 07/10/21 07/10/21 History medroxyprogesterone 150 mg/mL 150 mg IM .Q3MO 07/10/21 07/10/21 History intramuscular suspension meloxicam 7.5 mg tablet 7.5 mg PO DAILY 07/10/21 07/10/21 History metformin 1,000 mg tablet 1,000 mg PO BID 07/10/21 07/10/21 History metoprolol succinate 25 mg 25 mg PO DAILY 07/10/21 07/10/21 History tablet,extended release 24 hr omeprazole 20 mg tablet,delayed 20 mg PO DAILY 07/10/21 07/10/21 History release polyethylene glycol 3350 17 gram 17 g PO DAILY PRN Constipation 07/10/21 History oral powder packet (Miralax) potassium chloride 20 mEq 20 meq PO DAILY 07/10/21 07/10/21 History tablet,extended release(part/cryst) (Klor-Con M) spironolactone 25 mg tablet 25 mg PO DAILY 07/10/21 07/10/21 History topiramate 25 mg tablet 25 mg PO BID 07/10/21 07/10/21 History torsemide 20 mg tablet 20 mg PO BID 07/10/21 07/10/21 History trazodone 50 mg tablet 25 - 50 mg PO HS 07/10/21 07/10/21 History Allergies Allergy/AdvReac Type Severity Reaction Status Date / Time lidocaine Allergy Intermediate HIVES Verified 07/10/21 21:33 procaine Allergy Intermediate HIVES Verified 07/10/21 21:33 Penicillins Allergy Mild HAD NO Verified 07/10/21 21:33 PROBLEM WITH ZOSYN strawberry Allergy Mild HIVES Verified 07/10/21 21:33 cephalexin AdvReac Intermediate YEAST Verified 07/10/21 21:33 INFECTIONS tramadol AdvReac Intermediate SEIZURES Verified 07/10/21 21:33 azithromycin AdvReac Mild STOMACH Verified 07/10/21 21:33 PAIN Past Med/Surg History Medical History Abnormal CT scan, chest Acute electrocardiogram changes Acute respiratory failure with hypoxia Altered mental status, unspecified Aortic regurgitation Aortic stenosis Asthma Atypical chest pain Cannabis abuse Cellulitis of both lower extremities Chronic diastolic CHF (congestive heart failure) Coronary artery disease Depression Diabetes mellitus, type 2 Encounter for smoking cessation counseling GERD (gastroesophageal reflux disease) Gram negative sepsis Hepatitis C "Antibiotic screen positive, quantitative RNA positive 08/30/17" Hepatosplenomegaly History of drug abuse History of DVT (deep vein thrombosis) History of renal calculi Hypertension Hypocalcemia Opiate abuse, continuous Overdose Seizure disorder Surgical History History of cardiac cath 2017- 1 ROJAS to ramus, 2 ROJAS to L circumflex. 40-50% plaque to LAD 2018- distal disease (80%) within PDA History of carpal tunnel surgery History of lumbar spinal fusion Hx of tonsillectomy Status post cholecystectomy Family History Other Diabetes Heart disease Hypertension Kidney stones Seizures Social History Smoking Status: Current every day smoker Tobacco Type: Cigarettes Cigarettes Per Day: 10; Number of Years Since Quit: 31; Second Hand Exposure: Yes; Hx Alcohol Use: Yes Hx Substance Use: Yes (3 years drug free) Non-Prescribed Medications: Heroin, IV Drugs and Methamphetamines Last Used Substance: Unknown Last Used Substance Other:: 1.5 YEARS AGO Substance Use Type Other:: 1.5 years ago Preferred Language: Nepali Communication Ability: Unable Visual Impairment: No Limitations Hearing Ability: Normal Burling [employer] Joining Supervisor Required: No Beliefs That Will Affect Care: None marital status: Single Current Living Situation: Significant Other Current Living Situation Comment: LIVES WITH ROOMMATES How many Children do You have: 1 Feels Safe at Home: Yes Assistive Devices: BiPap Review of Systems A total of 10 systems reviewed and were otherwise negative Constitutional: no fever Respiratory: + dyspnea Cardiovascular: no chest pain Physical Exam Vital Signs Vital Signs - 24 hr 03/03/22 04:04 03/03/22 04:09 03/03/22 04:10 Temperature Temperature Source Pulse Rate Pulse Rate [Bilateral Apical] Respiratory Rate Respiratory Effort / Characteristics Accessory Muscle Use Labored Respiratory Depth Deep Respiratory Pattern Irregular Blood Pressure Blood Pressure [Left Arm] Blood Pressure Mean Blood Pressure Mean [Left Arm] Pulse Oximetry 99 99 Oxygen Delivery Method BiPAP BiPAP BiPAP Fraction of Inspired Oxygen Sepsis Recent Fever Within 48 Hours Sepsis New/Unexplained Change in Mental Status Sepsis Action Taken by Nursing 03/03/22 04:10 03/03/22 03:32 03/03/22 03:42 Temperature 36.6 C Temperature Source Axillary Pulse Rate 117 H 116 H Pulse Rate [Bilateral Apical] Respiratory Rate 28 H 38 H Respiratory Effort / Characteristics Labored Short of Breath Spontaneous Accessory Muscle Use Respiratory Depth Deep Respiratory Pattern Tachypnea Blood Pressure 102/64 Blood Pressure [Left Arm] Blood Pressure Mean 76 Blood Pressure Mean [Left Arm] Pulse Oximetry 99 97 96 Oxygen Delivery Method BiPAP BiPAP Fraction of Inspired Oxygen 80 Sepsis Recent Fever Within 48 Hours No Sepsis New/Unexplained Change in Mental Status N/A Sepsis Action Taken by Nursing Previously Notified 03/03/22 04:27 03/03/22 04:25 03/03/22 05:08 Temperature Temperature Source Pulse Rate Pulse Rate [Bilateral Apical] 116 H 118 H Respiratory Rate 26 H 26 H Respiratory Effort / Characteristics Respiratory Depth Respiratory Pattern Blood Pressure Blood Pressure [Left Arm] 116/84 123/88 Blood Pressure Mean Blood Pressure Mean [Left Arm] 94 99 Pulse Oximetry 92 98 96 Oxygen Delivery Method BiPAP Room Air Fraction of Inspired Oxygen 70 Sepsis Recent Fever Within 48 Hours Sepsis New/Unexplained Change in Mental Status Sepsis Action Taken by Nursing GENERAL: Patient is awake alert in moderate respiratory distress on CPAP EYES: The conjunctivae are clear. The pupils are round and reactive. EARS, NOSE, MOUTH AND THROAT: The nose is without any evidence of any deformity. Mucous membranes are moist. Tongue is midline. NECK: The neck is nontender and supple. RESPIRATORY: Respiratory distress rhonchi decreased breath sounds CARDIOVASCULAR: Regular rate and rhythm noted there no murmurs rubs or gallops normal S1 normal S2. GASTROINTESTINAL: The abdomen is soft. Abdomen is nontender. PELVIS: The Pelvis is stable. No tenderness to palpation is noted. BACK: Full range of motion MUSCULOSKELETAL/EXTREMITIES: There is no evidence of gross deformity full range of motion is noted in the hips and shoulders. Bilateral lower extremity edema calves are nontender SKIN: Rash right lower extremity that is bandaged . There are no petechiae, pallor or cyanosis noted. NEUROLOGIC: Patient is awake alert Course Reevaluation(s) Reevaluation #1: Patient was placed on BiPAP, patient was given IV Solu-Medrol, patient was given IV Lasix Time: 05:19 Reevaluation #2: Repeat examination the patient is on BiPAP [place] warm and dry and feeling much improved with stable vital signs Time: 05:19 Consultations [facility] Time: 05:19 Critical Care Time Critical Care Time: Yes Total Critical Care Time: 45 I have personally spent greater than 45 minutes of critical care time in the direct management of this patient. This includes bedside care, interpretation of diagnostic studies, and testing, discussion with consultants, patient, and family members, and other required patient management activities. These minutes are in excess of all separately billable procedures. Medical Decision Making Medical Records Attestation: I reviewed the patient's medical records. Home Medications Current Medication List: was personally reviewed by me Laboratory Data Attestation: I reviewed the patient's lab results. Result diagrams: 03/03/22 04:20 03/03/22 04:20 Lab Results 03/03/22 03/03/22 03/03/22 Range/Units 04:00 04:20 04:20 WBC 31.98 H* (4.8-10.8) K/ul RBC 3.92 L (3.93-5.22) M/uL Hgb 10.9 L (12.0-16.0) g/dl Hct 33.4 L (34.1-44.9) % MCV 85.2 (80.0-100.0) fL MCH 27.8 (25.0-34.0) pg MCHC 32.6 (32.0-36.0) g/dL RDW Std Deviation 54.2 H (36.4-46.3) fL RDW Coeff of Hannah 17.4 H (11.5-14.5) % Plt Count 365 (130-400) K/uL MPV 9.8 (9.4-12.3) fL VBG pH VBG pCO2 VBG pO2 VBG HCO3 VBG O2 Saturation VBG Base Excess Barometric Pressure Sodium 125 L (136-145) mmol/L Potassium 4.9 (3.5-5.1) mmol/L Chloride 89 L (98-107) mmol/L Carbon Dioxide 18 L (21-32) mmol/L Anion Gap 18 H (3-11) BUN 23 (6-23) mg/dl Creatinine 1.51 H (0.6-1.2) mg/dl Est Cr Clr Drug Dosing 51.3 ml/min Est GFR ( Amer) 48.2 ml/min Est GFR (Non-Af Amer) 41.6 ml/min BUN/Creatinine Ratio 15.2 (10-20) Glucose 175 H (70-99(Fasting)) mg/dl Lactate (0.4-2.0) mmol/L Calcium 8.2 L (8.5-10.1) mg/dl Magnesium 1.6 L (1.7-2.4) mg/dl Total Bilirubin 0.7 (0.2-1.0) mg/dl Direct Bilirubin 0.3 H (0-0.2) mg/dl AST 51 H (13-39) U/L ALT 20 (7-52) U/L Alkaline Phosphatase 124 H (34-104) U/L Troponin I High Sens 45.4 H (0-14) pg/ml Total Protein 7.0 (6.0-8.3) gm/dl Albumin 3.5 (3.4-5.0) gm/dl SARS-CoV-2 (PCR) NEGATIVE (Negative) Influenza Type A (PCR) Negative (Neg) Influenza Type B (PCR) Negative (Neg) RSV (RT-PCR) Negative (Neg) 03/03/22 03/03/22 Range/Units 04:20 04:20 WBC (4.8-10.8) K/ul RBC (3.93-5.22) M/uL Hgb (12.0-16.0) g/dl Hct (34.1-44.9) % MCV (80.0-100.0) fL MCH (25.0-34.0) pg MCHC (32.0-36.0) g/dL RDW Std Deviation (36.4-46.3) fL RDW Coeff of Hannah (11.5-14.5) % Plt Count (130-400) K/uL MPV (9.4-12.3) fL VBG pH Cancelled VBG pCO2 Cancelled VBG pO2 Cancelled VBG HCO3 Cancelled VBG O2 Saturation Cancelled VBG Base Excess Cancelled Barometric Pressure Cancelled Sodium (136-145) mmol/L Potassium (3.5-5.1) mmol/L Chloride (98-107) mmol/L Carbon Dioxide (21-32) mmol/L Anion Gap (3-11) BUN (6-23) mg/dl Creatinine (0.6-1.2) mg/dl Est Cr Clr Drug Dosing ml/min Est GFR ( Amer) ml/min Est GFR (Non-Af Amer) ml/min BUN/Creatinine Ratio (10-20) Glucose (70-99(Fasting)) mg/dl Lactate 7.5 H* (0.4-2.0) mmol/L Calcium (8.5-10.1) mg/dl Magnesium (1.7-2.4) mg/dl Total Bilirubin (0.2-1.0) mg/dl Direct Bilirubin (0-0.2) mg/dl AST (13-39) U/L ALT (7-52) U/L Alkaline Phosphatase (34-104) U/L Troponin I High Sens (0-14) pg/ml Total Protein (6.0-8.3) gm/dl Albumin (3.4-5.0) gm/dl SARS-CoV-2 (PCR) (Negative) Influenza Type A (PCR) (Neg) Influenza Type B (PCR) (Neg) RSV (RT-PCR) (Neg) Imaging Data Attestation: I personally reviewed and interpreted this imaging study as follows: ECG Data Attestation: I personally reviewed and interpreted this ECG as follows: Additional Comments: EKG interpreted by me, sinus tachycardia rate of [address]-T change no obvious ST segment elevation or depression poor baseline normal axis normal int ervals MDM Narrative Medical decision making differential diagnosis includes COPD exacerbation CHF acute hypercarbic respiratory failure anemia pneumonia metabolic derangement dehydration. Plan is to check labs, EKG, chest x-ray, admit Patient evaluated for acute respiratory failure, patient's chest x-ray reveals significant pulmonary edema, patient has improved on BiPAP, patient has an elevated white blood cell count, patient also has an elevated lactate. Patient clearly has CHF, patient was started on an empiric antibiotic, this patient was given a diuretic as well. Patient will not be receiving a 30 mL/kg bolus of IV fluids as this patient is in fulminant pulmonary edema. It is not indicated at this time. The lactate may be related to the fact that the patient has respiratory acidosis. Again sepsis is a possibility but the patient due to the fact that she is in fulminant CHF and will not be receiving IV fluids; a [place] catheter will be placed. This case was discussed with the [facility] this patient requires ICU level admission Impression & Plan Acute hypoxemic respiratory failure, Acute exacerbation of chronic obstructive pulmonary disease, Hypoxia, Acute CHF (congestive heart failure), Lactic acidosis, Leukocytosis, Elevated troponin I level Discharge Plan Visit Data Chief Complaint: Respiratory Distress ED Provider: Sandeep Garcia Discharge Problem: Acute hypoxemic respiratory failure, Acute exacerbation of chronic obstructive pulmonary disease, Hypoxia, Acute CHF (congestive heart failure), Lactic acidosis, Leukocytosis, Elevated troponin I level Patient Disposition: Being Evaluated by Hospitalist Forms Stand Alone Forms: My [facility] Prescriptions Prescriptions: No Action cyclobenzaprine 10 mg tablet 10 mg PO BID atorvastatin 80 mg tablet 80 mg PO DAILY torsemide 20 mg tablet 20 mg PO BID albuterol sulfate 2.5 mg /3 mL (0.083 %) solution for nebulization 2.5 mg inhalation Q4 PRN (Reason: WHEEZE/COUGH) trazodone 50 mg tablet 25 - 50 mg PO HS polyethylene glycol 3350 [Miralax] 17 gram Powder In Packet 17 g PO DAILY PRN (Reason: Constipation) levetiracetam 500 mg tablet 500 mg PO BID glipizide 10 mg Tablet 10 mg PO DAILY topiramate 25 mg tablet 25 mg PO BID clopidogrel 75 mg tablet 75 mg PO DAILY spironolactone 25 mg tablet 25 mg PO DAILY meloxicam 7.5 mg tablet 7.5 mg PO DAILY potassium chloride [Klor-Con M20] 20 mEq tablet,ER particles/crystals 20 meq PO DAILY benzonatate 100 mg capsule 100 mg PO TID PRN (Reason: Cough) metformin 1,000 mg tablet 1,000 mg PO BID lisinopril 5 mg tablet 2.5 mg PO DAILY metoprolol succinate 25 mg tablet extended release 24 hr 25 mg PO DAILY albuterol sulfate 90 mcg/actuation HFA aerosol inhaler 2 puff INHALATION Q4 PRN (Reason: Shortness Of Breath Or Wheezing) medroxyprogesterone 150 mg/mL suspension 150 mg IM .Q3MO loratadine 10 mg Tablet 10 mg PO DAILY buspirone 15 mg Tablet 15 mg PO BID escitalopram oxalate 20 mg tablet 20 mg PO DAILY buprenorphine-naloxone 8-2 mg tablet, sublingual 0.5 tab SUBLINGUAL TID omeprazole 20 mg Tablet,Delayed Release (Dr/Ec) 20 mg PO DAILY Referrals Referrals: Irvin Iverson MD [Primary Care Provider] -
[2022-03-03 04:55] LABS: Hematocrit (blood only) 33.4 % (34.1-44.9); Hemoglobin 10.9 g/dl (12.0-16.0); Mean Corpuscular Hemoglobin 27.8 pg (25.0-34.0); Mean Corpuscular Hgb Conc 32.6 g/dL (32.0-36.0); Mean Corpuscular Volume 85.2 fL (80.0-100.0); Mean Platelet Volume 9.8 fL (9.4-12.3); Platelet Count 365 K/uL (130-400); RDW Coefficient of Variation 17.4 % (11.5-14.5); RDW Standard Deviation 54.2 fL (36.4-46.3); Red Blood Count 3.92 M/uL (3.93-5.22); White Blood Count 31.98 K/ul (4.8-10.8)
[2022-03-03 04:57] LABS: Troponin I High Sensitivity 45.4 pg/ml (0-14)
[2022-03-03 05:02] LABS: Albumin Level 3.5 gm/dl (3.4-5.0); BUN Creatinine Ratio 15.2 (10-20); Bilirubin Direct 0.3 mg/dl (0-0.2); Bilirubin,Total 0.7 mg/dl (0.2-1.0); Calcium 8.2 mg/dl (8.5-10.1); Creatinine Clr Calc Pharmacy 51.3 ml/min; Est GFR (African American) 48.2 ml/min; Est GFR (Non-African American) 41.6 ml/min; Magnesium 1.6 mg/dl (1.7-2.4); Potassium 4.9 mmol/L (3.5-5.1)
[2022-03-03] MEDS ORDERED: SODIUM CHLORIDE 0.9% 1000ML 2,000 ML IV ONE ×2 (05:07→05:08)
[2022-03-03] MEDS ORDERED: MEROPENEM 500 MG in SYRINGE 0 ML IV ONE (05:08)
[2022-03-03] MEDS ORDERED: FUROSEMIDE 40 MG/4 ML VIAL IV ONE ×2 (05:10→17:00)
[2022-03-03 05:14] LABS: Influenza A virus by PCR Negative (Neg); Influenza B virus by PCR Negative (Neg); RSV by PCR Negative (Neg); SARS CoV2 RNA(COVID-19)Cepheid NEGATIVE (Negative)
[2022-03-03] MEDS ORDERED: ALBUMIN 25% 100 mL 25 GM/100 ML VIAL IV ONE ×2 (05:25→17:00)
[2022-03-03 05:47] LABS: ALC (manual) 0.64 K/uL (1.2-3.4); ANC (manual) 30.06 K/uL (1.4-6.5); Basophils # (manual) 0.32 K/uL (0-0.2); Basophils % (manual) 1 %; Echinocytes 2+; Lymphocytes # (manual) 0.64 K/uL (1.2-3.4); Lymphocytes % (manual) 2 %; Monocytes # (manual) 0.96 K/uL (0.24-0.82); Monocytes % (manual) 3 %; Neutrophils # (manual) 30.06 K/uL (1.4-6.5); Neutrophils % (manual) 94 %
[2022-03-03 05:51] LABS: iSTAT Arterial Blood Gas HCO3 23 meg/L (19-24); iSTAT Arterial Blood Gas pCO2 41 mmHg (35-46); iSTAT Arterial Blood Gas pH 7.36 (7.35-7.45); iSTAT Arterial Blood Gas pO2 68 mmHg (80-95); iSTAT Carbon Dioxide 24 mmol/L (24-31); iSTAT Hematocrit 33 % (37-47); iSTAT Hemoglobin 11.2 g/dl (12.0-16.0); iSTAT Potassium 4.8 mmol/L (3.3-5.0); iSTAT Sodium 125 mmol/L (135-144)
[2022-03-03] MEDS ORDERED: LEVALBUTEROL 1.25MG/0.5ML NEB INH STA (05:55)
[2022-03-03] MEDS ORDERED: IPRATROPIUM BROMIDE NEB SOLN 0.02% 2.5 ML VIAL INH STA (05:55)
[2022-03-03] MEDS ORDERED: XOPENEX/ATROVENT 1.25mg/0.5MG NEB COMBO NEB STA (05:55)
--- NOTE | 2022-03-03 05:56 | History & Physical Report ---
Date of Service March 03, 2022 Assessment & Plan (1) Acute respiratory failure with hypoxia: Plan: Multifactorial: Asthma exacerbation secondary to CAP, severe sepsis, SIRS plus lactic acidosis plus hypoxemia plus ARF Decompensated heart failure , hx diastolic dysfunction Troponin elevation secondary to illness Hypervolemic hyponatremia CAD status post stent moderate aortic stenosis hypertension, BP stable hyperlipidemia on statin Rx hx HCV, has not received treatment DM2 on oral medications, reasonable control as of recent hemoglobin A1c of 7.1 last June 2021 past history DVT status post oral anticoagulation seizure disorder, stable on regimen chronic anemia, hemoglobin at baseline chronic pain on Suboxone/hx polysubstance abuse ongoing tobacco abuse ICU Continue BiPAP CS, Ceftriaxone, doxycycline, follow lactic acid Steroids, nebs RTC for asthma exacerbation Lasix albumin for CHF Follow renal function, renal ultrasound if without improvement, hold JEFFERY inhibitor until creatinine back to baseline Strict I/Os, daily weights, CHF education Follow troponin, TTE if with progression Cardiology consult Re: Decompensated heart failure Hyponatremia work-up Basal bolus insulin adjusted for n.p.o. status while on BiPAP given tenuous respiratory status, ISS BG goal 1 40-1 80 DVT prophylaxis with Heparin subcu Full code Total critical care time was 50 minutes. Text document was generated using [employer] voice recognition software. It may contain grammatical or spelling errors. Kindly contact undersigned for clarification of any documentation item in question. History of Present Illness Chief Complaint: Shortness of breath Primary Care Provider: Irvin Iverson MD History obtained from patient and records. Medical history significant for chronic diastolic heart failure (EF 50 to 55%, TTE 2021 ), CAD status post stent, moderate aortic stenosis, hypertension, hyperlipidemia, bronchial asthma, hx HCV, DM2 on oral medications, past history DVT status post oral anticoagulation, seizure disorder, mood disorder, chronic anemia (baseline hemoglobin 10-11), chronic pain on Suboxone, hx polysubstance abuse, ongoing tobacco abuse Last June 2021 for respiratory failure secondary to CHF and pneumonia. Patient signed out AGAINST MEDICAL ADVICE. Few days history of junky cough symptoms with worsening shortness of breath. Weight gain and fluid retention despite compliance with medications. Patient not sure about sick contacts. Has not received COVID-19 vaccination secondary to allergy. Denies aspiration. Patient called EMS. O2 sats noted to be 40s at home. CPAP initiated at home. BiPAP initiated upon arrival at the ER. Meropenem and Lasix administered at the ER. MEDICAL HISTORY: SURGERIES : Cholecystectomy, Tonsillectomy, Dental procedure, Wrist abscess drainage, back surgery, thigh/knee surgery FAMILY HISTORY: HTN, DM, heart disease, Crohn's disease PERSONAL/SOCIAL HISTORY: Half pack daily, no EtOH intake, unemployed, lives with boyfriend Allergies Allergy/AdvReac Type Severity Reaction Status Date / Time lidocaine Allergy Intermediate HIVES Verified 07/10/21 21:33 procaine Allergy Intermediate HIVES Verified 07/10/21 21:33 Penicillins Allergy Mild HAD NO Verified 07/10/21 21:33 PROBLEM WITH ZOSYN strawberry Allergy Mild HIVES Verified 07/10/21 21:33 cephalexin AdvReac Intermediate YEAST Verified 07/10/21 21:33 INFECTIONS tramadol AdvReac Intermediate SEIZURES Verified 07/10/21 21:33 azithromycin AdvReac Mild STOMACH Verified 07/10/21 21:33 PAIN Home Medications Medication Instructions Recorded Confirmed Type albuterol sulfate 2.5 mg/3 mL 2.5 mg inhalation Q4 PRN 07/10/21 03/03/22 History (0.083 %) solution for nebulization WHEEZE/COUGH albuterol sulfate 90 mcg/actuation 2 puff inhalation Q4 PRN Shortness 07/10/21 03/03/22 History aerosol inhaler Of Breath Or Wheezing atorvastatin 80 mg tablet 80 mg PO DAILY 07/10/21 03/03/22 History benzonatate 100 mg capsule 100 mg PO TID PRN Cough 07/10/21 03/03/22 History buprenorphine 8 mg-naloxone 2 mg 0.5 tab sublingual TID 07/10/21 03/03/22 History sublingual tablet buspirone 15 mg tablet 15 mg PO BID 07/10/21 03/03/22 History clopidogrel 75 mg tablet 75 mg PO DAILY 07/10/21 03/03/22 History cyclobenzaprine 10 mg tablet 10 mg PO BID 07/10/21 03/03/22 History escitalopram oxalate 20 mg tablet 20 mg PO DAILY 07/10/21 03/03/22 History glipizide 10 mg tablet 10 mg PO DAILY 07/10/21 03/03/22 History levetiracetam 500 mg tablet 500 mg PO BID 07/10/21 03/03/22 History lisinopril 5 mg tablet 2.5 mg PO DAILY 07/10/21 03/03/22 History loratadine 10 mg tablet 10 mg PO DAILY 07/10/21 03/03/22 History medroxyprogesterone 150 mg/mL 150 mg IM .Q3MO 07/10/21 03/03/22 History intramuscular suspension meloxicam 7.5 mg tablet 7.5 mg PO DAILY 07/10/21 03/03/22 History metformin 1,000 mg tablet 1,000 mg PO BID 07/10/21 03/03/22 History metoprolol succinate 25 mg 25 mg PO DAILY 07/10/21 03/03/22 History tablet,extended release 24 hr omeprazole 20 mg tablet,delayed 20 mg PO DAILY 07/10/21 03/03/22 History release polyethylene glycol 3350 17 gram 17 g PO DAILY PRN Constipation 07/10/21 03/03/22 History oral powder packet (Miralax) potassium chloride 20 mEq 20 meq PO DAILY 07/10/21 03/03/22 History tablet,extended release(part/cryst) (Klor-Con M) spironolactone 25 mg tablet 12.5 mg PO QAM 07/10/21 03/03/22 History topiramate 25 mg tablet 25 mg PO BID 07/10/21 03/03/22 History torsemide 20 mg tablet 20 mg PO BID 07/10/21 03/03/22 History trazodone 50 mg tablet 75 mg PO HS 07/10/21 03/03/22 History aspirin 81 mg tablet,delayed 81 mg PO DAILY 03/03/22 03/03/22 History release escitalopram oxalate 10 mg tablet 10 mg PO DAILY 03/03/22 03/03/22 History famotidine 20 mg tablet 20 mg PO BID heartburn 03/03/22 03/03/22 History ferrous sulfate 325 mg (65 mg 325 mg PO DIRECTED 03/03/22 03/03/22 History iron) tablet fluticasone furoate 200 1 inh inhalation DAILY 03/03/22 03/03/22 History mcg-vilanterol 25 mcg/dose inhalation powder (Breo Ellipta) gabapentin 300 mg capsule 300 mg PO TID 03/03/22 03/03/22 History liraglutide 0.6 mg/0.1 mL (18 mg/3 1.2 mg subcut DAILY 03/03/22 03/03/22 History mL) subcutaneous pen injector meclizine 25 mg tablet 25 mg PO TID PRN Dizziness 03/03/22 03/03/22 History ddjhnfyq-xlejjkhkk-uwhpcpwzg 3.5 4 drp otic (ear) TID 03/03/22 03/03/22 History mg/mL-10,000 unit/mL-1 % ear solution nitroglycerin 0.4 mg sublingual 0.4 mg sublingual DAILY PRN Chest 03/03/22 03/03/22 History tablet Pain Past Med/Surg History Medical History Abnormal CT scan, chest Acute electrocardiogram changes Acute respiratory failure with hypoxia Altered mental status, unspecified Aortic regurgitation Aortic stenosis Asthma Atypical chest pain Cannabis abuse Cellulitis of both lower extremities Chronic diastolic CHF (congestive heart failure) Coronary artery disease Depression Diabetes mellitus, type 2 Encounter for smoking cessation counseling GERD (gastroesophageal reflux disease) Gram negative sepsis Hepatitis C "Antibiotic screen positive, quantitative RNA positive 08/30/17" Hepatosplenomegaly History of drug abuse History of DVT (deep vein thrombosis) History of renal calculi Hypertension Hypocalcemia Opiate abuse, continuous Overdose Seizure disorder Surgical History History of cardiac cath 2017- 1 ROJAS to ramus, 2 ROJAS to L circumflex. 40-50% plaque to LAD 2018- distal disease (80%) within PDA History of carpal tunnel surgery History of lumbar spinal fusion Hx of tonsillectomy Status post cholecystectomy Family History Other Diabetes Heart disease Hypertension Kidney stones Seizures Social History Smoking Status: Heavy tobacco smoker Tobacco Type: Cigarettes Cigarettes Per Day: 10; Number of Years Since Quit: 31; Second Hand Exposure: Yes; Hx Alcohol Use: Yes Alcohol type: beer, wine and hard liquor Hx Substance Use: Yes Non-Prescribed Medications: Heroin, IV Drugs and Methamphetamines Last Used Substance: Unknown Last Used Substance Other:: 1.5 YEARS AGO Substance Use Type Other:: 3 years drug free per record Preferred Language: Dominican Communication Ability: Effective Visual Impairment: No Limitations Hearing Ability: Normal Technology Risk Intern Required: No Beliefs That Will Affect Care: None marital status: Single Current Living Situation: Family Current Living Situation Comment: LIVES WITH ROOMMATES How many Children do You have: 1 Feels Safe at Home: Yes Assistive Devices: None Review of Systems Review of Systems: As per HPI, all other systems reviewed and negative Physical Exam Physical Exam: GENERAL: Slightly uncomfortable, obese, looks older than stated age, respiratory distress SKIN: Pallor , warm HEENT: Pale palpebral conjunctivae, no ptosis, dry buccal mucosa, BiPAP in place NECK : Supple, short neck, no tenderness CHEST : Decreased breath sounds, occasional expiratory wheezes, no tenderness HEART : Tachycardic, systolic murmur ABDOMEN: distention, nontender EXTREMITIES : Bilateral LE swelling, no LE tenderness, no other conspicuous deformities noted NEUROLOGIC : Coherent, no facial asymmetry, gait and stance not assessed Results & Data Results & Data ([facility]) Vital Signs (Past 12 Hours) Vital Signs Temp Pulse Pulse Resp BP BP Pulse Ox 03/03/22 05:54 121 H 26 H 106/79 94 03/03/22 05:08 118 H 26 H 123/88 96 03/03/22 04:25 98 03/03/22 04:27 116 H 26 H 116/84 92 03/03/22 03:42 116 H 38 H 96 03/03/22 03:32 97 03/03/22 04:10 36.6 C 117 H 28 H 102/64 99 03/03/22 04:10 99 03/03/22 04:09 99 03/03/22 04:04 O2 Del Method FiO2 03/03/22 05:54 BiPAP 03/03/22 05:08 Room Air 03/03/22 04:25 70 03/03/22 04:27 BiPAP 03/03/22 03:42 80 03/03/22 03:32 BiPAP 03/03/22 04:10 BiPAP 03/03/22 04:10 BiPAP 03/03/22 04:09 BiPAP 03/03/22 04:04 BiPAP Laboratory Results Laboratory Results WBC 31.98 K/ul (4.8-10.8) H* 03/03/22 04:20 RBC 3.92 M/uL (3.93-5.22) L 03/03/22 04:20 Hgb 10.9 g/dl (12.0-16.0) L 03/03/22 04:20 POC Hgb 11.2 g/dl (12.0-16.0) L 03/03/22 05:37 Hct 33.4 % (34.1-44.9) L 03/03/22 04:20 POC Hct 33 % (37-47) L 03/03/22 05:37 MCV 85.2 fL (80.0-100.0) 03/03/22 04:20 MCH 27.8 pg (25.0-34.0) 03/03/22 04:20 MCHC 32.6 g/dL (32.0-36.0) 03/03/22 04:20 RDW Std Deviation 54.2 fL (36.4-46.3) H 03/03/22 04:20 RDW Coeff of Hannah 17.4 % (11.5-14.5) H 03/03/22 04:20 Plt Count 365 K/uL (130-400) 03/03/22 04:20 MPV 9.8 fL (9.4-12.3) 03/03/22 04:20 Neutrophils % (Manual) 94 % 03/03/22 04:20 Lymphocytes % (Manual) 2 % 03/03/22 04:20 Monocytes % (Manual) 3 % 03/03/22 04:20 Basophils % (Manual) 1 % 03/03/22 04:20 Neutrophils # (Manual) 30.06 K/uL (1.4-6.5) H 03/03/22 04:20 Total Absolute Neuts 30.06 K/uL (1.4-6.5) H 03/03/22 04:20 Lymphocytes # (Manual) 0.64 K/uL (1.2-3.4) L 03/03/22 04:20 Total Abs Lymphocytes 0.64 K/uL (1.2-3.4) L 03/03/22 04:20 Monocytes # (Manual) 0.96 K/uL (0.24-0.82) H 03/03/22 04:20 Basophils # (Manual) 0.32 K/uL (0-0.2) H 03/03/22 04:20 Echinocytes 2+ 03/03/22 04:20 POC pH 7.36 (7.35-7.45) 03/03/22 05:37 POC pCO2 41 mmHg (35-46) 03/03/22 05:37 POC pO2 68 mmHg (80-95) L 03/03/22 05:37 POC HCO3 23 quinn/L (19-24) 03/03/22 05:37 POC Total CO2 24 mmol/L (24-31) 03/03/22 05:37 POC Base Excess -3.0 quinn/L (-9-1.8) 03/03/22 05:37 POC ABG O2 Sat 92.0 % (90-95) 03/03/22 05:37 VBG pH Cancelled 03/03/22 04:20 VBG pCO2 Cancelled 03/03/22 04:20 VBG pO2 Cancelled 03/03/22 04:20 VBG HCO3 Cancelled 03/03/22 04:20 VBG O2 Saturation Cancelled 03/03/22 04:20 VBG Base Excess Cancelled 03/03/22 04:20 Barometric Pressure Cancelled 03/03/22 04:20 POC Sodium 125 mmol/L (135-144) L 03/03/22 05:37 Sodium 125 mmol/L (136-145) L 03/03/22 04:20 POC Potassium 4.8 mmol/L (3.3-5.0) 03/03/22 05:37 Potassium 4.9 mmol/L (3.5-5.1) 03/03/22 04:20 Chloride 89 mmol/L (98-107) L 03/03/22 04:20 Carbon Dioxide 18 mmol/L (21-32) L 03/03/22 04:20 Anion Gap 18 (3-11) H 03/03/22 04:20 BUN 23 mg/dl (6-23) 03/03/22 04:20 Creatinine 1.51 mg/dl (0.6-1.2) H 03/03/22 04:20 Est Cr Clr Drug Dosing 51.3 ml/min 03/03/22 04:20 Est GFR ( Amer) 48.2 ml/min 03/03/22 04:20 Est GFR (Non-Af Amer) 41.6 ml/min 03/03/22 04:20 BUN/Creatinine Ratio 15.2 (10-20) 03/03/22 04:20 Glucose 175 mg/dl (70-99(Fasting)) H 03/03/22 04:20 Lactate 7.5 mmol/L (0.4-2.0) H* 03/03/22 04:20 Calcium 8.2 mg/dl (8.5-10.1) L 03/03/22 04:20 Magnesium 1.6 mg/dl (1.7-2.4) L 03/03/22 04:20 Total Bilirubin 0.7 mg/dl (0.2-1.0) 03/03/22 04:20 Direct Bilirubin 0.3 mg/dl (0-0.2) H 03/03/22 04:20 AST 51 U/L (13-39) H 03/03/22 04:20 ALT 20 U/L (7-52) 03/03/22 04:20 Alkaline Phosphatase 124 U/L (34-104) H 03/03/22 04:20 Troponin I High Sens 45.4 pg/ml (0-14) H 03/03/22 04:20 Total Protein 7.0 gm/dl (6.0-8.3) 03/03/22 04:20 Albumin 3.5 gm/dl (3.4-5.0) 03/03/22 04:20 Procalcitonin 0.57 ng/ml (0-0.5) H 03/03/22 04:41 SARS-CoV-2 (PCR) NEGATIVE (Negative) 03/03/22 04:00 Influenza Type A (PCR) Negative (Neg) 03/03/22 04:00 Influenza Type B (PCR) Negative (Neg) 03/03/22 04:00 RSV (RT-PCR) Negative (Neg) 03/03/22 04:00 Diagnostic Findings Chest x-ray as per my interpretation congestion, bilateral infiltrates right greater than the left, cardiomegaly EKG as per my interpretation : Rate 115, sinus tachycardia, normal axis, T wave abnormalities inferior leads
[2022-03-03] MEDS ORDERED: DOXYCYCLINE HYCLATE 100 MG in DEXTROSE 5% 100 ML IV STA (06:07)
[2022-03-03 06:16] LABS: Partial Thromboplastin Ratio 1.1; Partial Thromboplastin Time 31.3 Seconds (21.0-31.0)
[2022-03-03] MEDS ORDERED: methylPREDNISolone 20 MG in SYRINGE 0 ML IV STA (06:16)
[2022-03-03 06:52] LABS: Appearance Urine Cloudy (Clear); Bacteria Urine Automated 1+ (Negative); Bilirubin Urine Negative (Negative); Blood Urine Negative (Negative); Color Urine Yellow; Epithelial Cell Urine Auto >30 /lpf (0-5); Glucose Urine UA Negative (Negative); Ketones Urine Negative (Negative); Leukocyte Esterase Urine Trace (Negative); Nitrite Urine Negative (Negative); Protein Urine Negative (Negative); RBC Urine Automated 0-4 /hpf (0-4); Specific Gravity Urine 1.012 (1.000-1.030); Urobilinogen Urine Negative (Negative)
--- NOTE | 2022-03-03 06:54 | Critical Care Consultation ---
Date of Consultation March 03, 2022 Assessment & Plan (1) Acute respiratory failure with hypoxia: In the setting of CHF exacerbation Continue BIPAP Continue diuresis cautiously as patient is preload dependent Consider continuing Solumedrol Cannot rule out underlying pneumonia, would continue to cover empirically (2) CHF (congestive heart failure): As above Cardiology is consulted, appreciate recommendations BNP pending (3) Elevated lactic acid level: Improving, trend to clearance (4) Aortic stenosis: As above Supervising Physician Co-Signing Physician Notes Seen and examined. EMR reviewed. Discussed with critical care DUSTIN and agree with assessment plan as noted. Please refer to my supplementary documentation from today. History of Present Illness Reason for Consultation: Acute hypoxic respiratory failure History of Present Illness Ms. Fritz Gonzalez is a chronically-ill 42YO F with a history significant for seizures, drug use disorder, COPD, tobacco use disorder, HFpEF, CAD s/p PCI 2016, moderate-severe , DMII, hypertension, hepatitis C, DVT not on LTAC who presented to [facility] ED due to approximately 1 day of shortness of breath. Per report, EMS arrived to find O2 saturation 40%. Patient was placed on NRB and subsequently CPAP with improvement. She also endorses productive cough and congestion for a few days and weight gain. CXR revealed pulmonary edema with bilateral pleural effusions. She was given 80mg Lasix x1 with output of approximately 2L thus far. Solumedrol ordered by primary team. Remainder of work-up was notable for lactate 7.5, WBC 32K, Na 125, AG 18, Cr 1.5. Patient was seen in ED B01. Hemodynamically stable. She is AAOx3. Some respiratory distress, admits to some anxiety with mask on. States she has been taking her medications as prescribed including her "water pills". ROS + anorexia but has been drinking well, productive cough. Denies chest pain, abdominal pain, diarrhea, vomiting, headache, visual disturbance. POCUS performed showing plump IVC, LV grossly hypokinetic without focal wall motion abnormality. Allergies Allergy/AdvReac Type Severity Reaction Status Date / Time lidocaine Allergy Intermediate HIVES Verified 07/10/21 21:33 procaine Allergy Intermediate HIVES Verified 07/10/21 21:33 Penicillins Allergy Mild HAD NO Verified 07/10/21 21:33 PROBLEM WITH ZOSYN strawberry Allergy Mild HIVES Verified 07/10/21 21:33 cephalexin AdvReac Intermediate YEAST Verified 07/10/21 21:33 INFECTIONS tramadol AdvReac Intermediate SEIZURES Verified 07/10/21 21:33 azithromycin AdvReac Mild STOMACH Verified 07/10/21 21:33 PAIN Home Medications Medication Instructions Recorded Confirmed Type albuterol sulfate 2.5 mg/3 mL 2.5 mg inhalation Q4 PRN 07/10/21 03/03/22 History (0.083 %) solution for nebulization WHEEZE/COUGH albuterol sulfate 90 mcg/actuation 2 puff inhalation Q4 PRN Shortness 07/10/21 03/03/22 History aerosol inhaler Of Breath Or Wheezing atorvastatin 80 mg tablet 80 mg PO DAILY 07/10/21 03/03/22 History benzonatate 100 mg capsule 100 mg PO TID PRN Cough 07/10/21 03/03/22 History buprenorphine 8 mg-naloxone 2 mg 0.5 tab sublingual TID 07/10/21 03/03/22 History sublingual tablet buspirone 15 mg tablet 15 mg PO BID 07/10/21 03/03/22 History clopidogrel 75 mg tablet 75 mg PO DAILY 07/10/21 03/03/22 History cyclobenzaprine 10 mg tablet 10 mg PO BID 07/10/21 03/03/22 History escitalopram oxalate 20 mg tablet 20 mg PO DAILY 07/10/21 03/03/22 History glipizide 10 mg tablet 10 mg PO DAILY 07/10/21 03/03/22 History levetiracetam 500 mg tablet 500 mg PO BID 07/10/21 03/03/22 History lisinopril 5 mg tablet 2.5 mg PO DAILY 07/10/21 03/03/22 History loratadine 10 mg tablet 10 mg PO DAILY 07/10/21 03/03/22 History medroxyprogesterone 150 mg/mL 150 mg IM .Q3MO 07/10/21 03/03/22 History intramuscular suspension meloxicam 7.5 mg tablet 7.5 mg PO DAILY 07/10/21 03/03/22 History metformin 1,000 mg tablet 1,000 mg PO BID 07/10/21 03/03/22 History metoprolol succinate 25 mg 25 mg PO DAILY 07/10/21 03/03/22 History tablet,extended release 24 hr omeprazole 20 mg tablet,delayed 20 mg PO DAILY 07/10/21 03/03/22 History release polyethylene glycol 3350 17 gram 17 g PO DAILY PRN Constipation 07/10/21 03/03/22 History oral powder packet (Miralax) potassium chloride 20 mEq 20 meq PO DAILY 07/10/21 03/03/22 History tablet,extended release(part/cryst) (Klor-Con M) spironolactone 25 mg tablet 12.5 mg PO QAM 07/10/21 03/03/22 History topiramate 25 mg tablet 25 mg PO BID 07/10/21 03/03/22 History torsemide 20 mg tablet 20 mg PO BID 07/10/21 03/03/22 History trazodone 50 mg tablet 75 mg PO HS 07/10/21 03/03/22 History aspirin 81 mg tablet,delayed 81 mg PO DAILY 03/03/22 03/03/22 History release escitalopram oxalate 10 mg tablet 10 mg PO DAILY 03/03/22 03/03/22 History famotidine 20 mg tablet 20 mg PO BID heartburn 03/03/22 03/03/22 History ferrous sulfate 325 mg (65 mg 325 mg PO DIRECTED 03/03/22 03/03/22 History iron) tablet fluticasone furoate 200 1 inh inhalation DAILY 03/03/22 03/03/22 History mcg-vilanterol 25 mcg/dose inhalation powder (Breo Ellipta) gabapentin 300 mg capsule 300 mg PO TID 03/03/22 03/03/22 History liraglutide 0.6 mg/0.1 mL (18 mg/3 1.2 mg subcut DAILY 03/03/22 03/03/22 History mL) subcutaneous pen injector meclizine 25 mg tablet 25 mg PO TID PRN Dizziness 03/03/22 03/03/22 History dvzybhxi-iwfhiywwb-hifkooblc 3.5 4 drp otic (ear) TID 03/03/22 03/03/22 History mg/mL-10,000 unit/mL-1 % ear solution nitroglycerin 0.4 mg sublingual 0.4 mg sublingual DAILY PRN Chest 03/03/22 03/03/22 History tablet Pain Patient History Medical History Abnormal CT scan, chest Acute electrocardiogram changes Acute respiratory failure with hypoxia Altered mental status, unspecified Aortic regurgitation Aortic stenosis Asthma Atypical chest pain Cannabis abuse Cellulitis of both lower extremities Chronic diastolic CHF (congestive heart failure) Coronary artery disease Depression Diabetes mellitus, type 2 Encounter for smoking cessation counseling GERD (gastroesophageal reflux disease) Gram negative sepsis Hepatitis C "Antibiotic screen positive, quantitative RNA positive 08/30/17" Hepatosplenomegaly History of drug abuse History of DVT (deep vein thrombosis) History of renal calculi Hypertension Hypocalcemia Opiate abuse, continuous Overdose Seizure disorder Surgical History History of cardiac cath 2017- 1 ROJAS to ramus, 2 ROJAS to L circumflex. 40-50% plaque to LAD 2018- distal disease (80%) within PDA History of carpal tunnel surgery History of lumbar spinal fusion Hx of tonsillectomy Status post cholecystectomy Family History Other Diabetes Heart disease Hypertension Kidney stones Seizures Social History Smoking Status: Current every day smoker Tobacco Type: Cigarettes Cigarettes Per Day: 10; Number of Years Since Quit: 31; Second Hand Exposure: Yes; Hx Alcohol Use: Yes Hx Substance Use: Yes (3 years drug free) Non-Prescribed Medications: Heroin, IV Drugs and Methamphetamines Last Used Substance: Unknown Last Used Substance Other:: 1.5 YEARS AGO Substance Use Type Other:: 1.5 years ago Preferred Language: Slovak Communication Ability: Unable Visual Impairment: No Limitations Hearing Ability: Normal Spinner Operator Required: No Beliefs That Will Affect Care: None marital status: Single Current Living Situation: Significant Other Current Living Situation Comment: LIVES WITH ROOMMATES How many Children do You have: 1 Feels Safe at Home: Yes Assistive Devices: BiPap Physical Exam Constitutional: Chronically-ill appearing female, appears older than stated age Eyes: PERRL, conjunctivae normal, anicteric sclerae Neck: +JVD Respiratory: + labored breathing, + cough, + tachypneic and + audible wheezes Auscultation: + diminished lung sounds, + crackles and + wheezes Cardiovascular: Rate/Rhythm: regular rhythm and + tachycardic Heart Sounds: + murmur Extremities: no edema Gastrointestinal (Abdomen): normal bowel sounds, soft, nontender, no hepatosplenomegaly Skin: Distal RLE lesions and open areas without signs of active infection, diffuse scarring in the setting of prior IVDA Neurologic: No focal deficits Results & Data Results & Data ([facility]) Vital Signs (Past 12 Hours) Vital Signs Temp Pulse Pulse Pulse Resp BP BP 03/03/22 06:45 124 H 124 H 24 115/87 03/03/22 06:22 122 H 24 129/83 03/03/22 06:24 119 H 35 H 03/03/22 06:22 119 H 35 H 03/03/22 05:54 121 H 26 H 106/79 03/03/22 05:08 118 H 26 H 123/88 03/03/22 04:25 03/03/22 04:27 116 H 26 H 116/84 03/03/22 03:42 116 H 38 H 03/03/22 03:32 03/03/22 04:10 36.6 C 117 H 28 H 102/64 03/03/22 04:10 03/03/22 04:09 03/03/22 04:04 Pulse Ox O2 Del Method FiO2 03/03/22 06:45 92 BiPAP 03/03/22 06:22 96 BiPAP 03/03/22 06:24 93 70 03/03/22 06:22 93 BiPAP 70 03/03/22 05:54 94 BiPAP 03/03/22 05:08 96 Room Air 03/03/22 04:25 98 70 03/03/22 04:27 92 BiPAP 03/03/22 03:42 96 80 03/03/22 03:32 97 BiPAP 03/03/22 04:10 99 BiPAP 03/03/22 04:10 99 BiPAP 03/03/22 04:09 99 BiPAP 03/03/22 04:04 BiPAP Coding Level of Care Code 31250 Inpt Consult Level 1 Diagnoses Acute respiratory failure with hypoxia J96.01 CHF (congestive heart failure) I50.9 Heart failure chronicity: acute Heart failure type: unspecified Elevated lactic acid level R79.89 Aortic stenosis I35.0 (1) CHF (congestive heart failure) Heart failure chronicity: acute Heart failure type: unspecified Qualified Code(s): I50.9 - Heart failure, unspecified
[2022-03-03] MEDS ORDERED: RAPID SEQUENCE INDUCTION BAG ONE (07:55)
[2022-03-03] MEDS ORDERED: PROPOFOL IV EMULSION 10 MG/ML 100 ML VIAL IV ONE (07:55)
[2022-03-03] MEDS ORDERED: GLUCOSE 10 TAB/TUBE PO PRN (07:56)
[2022-03-03] MEDS ORDERED: DEXTROSE 50% 50 ML SYRINGE IV PRN (07:56)
[2022-03-03] MEDS ORDERED: GLUCAGON FOR INJ 1 MG VIAL SQ PRN (07:56)
[2022-03-03] MEDS ORDERED: PROMETHAZINE HCL 12.5 MG in SODIUM CHLORIDE 0.9% 50 ML IV PRN (07:56)
[2022-03-03] MEDS ORDERED: GLUCOSE 40% GEL 15 GM TUBE PO PRN (07:56)
[2022-03-03] MEDS ORDERED: CARBOHYDRATES FOR HYPOGLYCEMIA PO PRN (07:56)
[2022-03-03] MEDS ORDERED: STAT IV Infusion **Titration per Protocol STA ×3 (08:07→10:17)
--- NOTE | 2022-03-03 08:44 | Procedure Note ---
Procedure Note Date of Service March 03, 2022 Note INTUBATION PROCEDURE NOTE: Provider: Chava Armenta MD A time-out was completed verifying correct patient, procedure, site, positioning. Patient was evaluated and required intubation for hypoxemic respiratory failure with increased work of breathing. Sedative agent used: Etomidate 40 mg and Versed 2 mg and 5 mL propofol Paralysis agent used: None Patient was admitted on noninvasive positive pressure ventilation. She is fail ing with paradoxical respirations, tachypnea, and increased work of breathing. Discussed intubation with the patient who verbally agrees. The patient was prepared in the appropriate fashion. Sedation was achieved utilizing etomidate and Versed. Patient was preoxygenated using noninvasive positive pressure ventilation. Once the patient was sedated, video laryngoscopy was performed. The cords were easily visualized. An 8.0 endotracheal tube was placed under video laryngoscopy guidance to 20 cm at the lip. The stylette was removed and balloon was inflated with 10mL of air. Appropriate Colorimetric change was appreciated. Bilateral breath sounds were heard without air sounds in the abdomen. Chest x-ray pending Patient tolerated the procedure well and there were no immediate complications. Patient transiently desaturated down to about 78% but improved rapidly with bagging and application of PEEP Coding CPT Codes Resuscitation - Resuscitation: 72365 Endotracheal Intubation, emergency ([id number]) [facility] [place] Codes (Charges) Resuscitation Resuscitation: [id number] Endotracheal Intubation, emergency
--- NOTE | 2022-03-03 08:52 | Procedure Note ---
Procedure Note Date of Service March 03, 2022 Note CENTRAL LINE PROCEDURE NOTE: Procedure: Central Line Placement Provider: Chava Armenta MD Indication: Central Drug Administration, Poor Venous Access, Multiple Lab Draws Necessary, etc. Anesthesia: 3 mL 1% lidocaine without epinephrine Site: Left subclavian Verbal consent was obtained from the patient prior to intubation. She was unable to provide written consent due to gravity of illness and emergent nature of procedure. A time-out was completed verifying correct patient, procedure, site, positioning, and implants(s) or special equipment if applicable. Patients left neck and shoulder were cleansed and draped in the typical sterile fashion using Chloraprep. Landmarks were easily identified. The superficial tissue was anesthetized using 3 mL of 1% lidocaine without epinephrine. After adequate anesthetization was achieved, the left subclavian vein was cannulated under direct ultrasound guidance using an introducer needle on a syringe. Good venous blood return was maintained prior to removal of syringe from introducer needle. Using Seldinger Technique, a guide wire was advanced through the introducer needle without resistance. The introducer needle was removed. A small incision was made in penetrating fashion at the guide wire insertion site utilizing an 11 blade scalpel. The dilator was advanced to the vessel without resistance. The dilator was exchanged for the triple lumen catheter which was advanced into the vessel without resistance. The guide wire was removed intact from the catheter without issue. Claves were placed on each catheter tip with confirmation of good blood flow from each lumen. Each port was easily flushed with sterile saline. The catheter was placed at the hub and sutured in place. BioPatch was applied to the catheter and a sterile Tegaderm dressing was applied over the catheter with careful attention to sterility. Patient tolerated procedure well. No immediate complications were met. Post procedure x-ray was ordered Coding CPT Codes Tubes, Drains, and Vasc Access - Tubes, Drains, and Vasc Access: [id number] Place catheter in vein superior or inferior vena cava ([id number]) [facility] [place] Procedure Codes (Charges) Tubes, Drains, and Vasc Access Procedure 1: Tubes, Drains, and Vasc Access: [id number] Place catheter in vein superior or inferior vena cava
[2022-03-03 08:53] LABS: iSTAT Art Bld Gas pCO2 Correct 75 mmHg (35-46); iSTAT Art Bld Gas pH Corrected 7.168 (7.35-7.45); iSTAT Arterial Blood Gas HCO3 27 meg/L (19-24); iSTAT Arterial Blood Gas pCO2 75 mmHg (35-46); iSTAT Arterial Blood Gas pH 7.17 (7.35-7.45); iSTAT Arterial Blood Gas pO2 99 mmHg (80-95); iSTAT Arterial Blood Gas pO2 C 100; iSTAT Carbon Dioxide 29 mmol/L (24-31); iSTAT FiO2 100 %; iSTAT Hematocrit 33 % (37-47); iSTAT Hemoglobin 11.2 g/dl (12.0-16.0); iSTAT Potassium 4.3 mmol/L (3.3-5.0); iSTAT Site Art Line; iSTAT Sodium 126 mmol/L (135-144)
--- NOTE | 2022-03-03 08:53 | Procedure Note ---
Procedure Note Date of Service March 03, 2022 Note ARTERIAL LINE PROCEDURE NOTE: Procedure: Arterial Line Placement Provider: Chava Armenta MD Indication: Frequent blood gases Anesthesia: None Verbal consent obtained from the patient prior to intubation. Due to the gravity of the situation and urgent need, written consent was not appropriate. A time-out was completed verifying correct patient, procedure, site, positioning, and implant(s) or special equipment if applicable. Allens test was performed to ensure adequate perfusion. Patients left wrist was prepped and draped in the usual sterile fashion. A 20g Arrow arterial line was introduced into the left radial artery. Catheter was threaded, and the needle was removed with appropriate blood return. Good waveform was observed. The patient tolerated the procedure well. Blood Loss: Minimal Complications: None Coding CPT Codes Tubes, Drains, and Vasc Access - Tubes, Drains, and Vasc Access: [id number] Insertion Catheter, Artery ([id number]) [facility] [place] Procedure Codes (Charges) Tubes, Drains, and Vasc Access Procedure 1: Tubes, Drains, and Vasc Access: [id number] Insertion Catheter, Artery
[2022-03-03] MEDS ORDERED: METOPROLOL SUCC 25MG EXT REL TAB PO SCH (09:00)
[2022-03-03] MEDS ORDERED: levETIRAcetam 500 MG TAB PO SCH (09:00)
[2022-03-03] MEDS ORDERED: NON-FORMULARY MEDICATION (Buprenorphine-Naloxone 8-2 mg tablet, sublingual) SL SCH (09:00)
[2022-03-03] MEDS ORDERED: LORATADINE 10 MG TAB PO SCH (09:00)
--- NOTE | 2022-03-03 09:01 | Communication Note ---
Date of Service: March 03, 2022 Patient seen and examined. Discussed with critical care DUSTIN overnight. I assessed the patient early this morning. She was on BiPAP. She remained tach ypneic with paradoxical breathing and appeared to be failing noninvasive positive pressure ventilation. I discussed with her intubation, central line and arterial line placement and she verbally agreed. These procedures were completed. Please refer to separate notes. Patient will be sedated on propofol and as needed pushes of Versed. Will adjust mechanical ventilation to maintain blood gas in appropriate settings. Continue attempts at diuresis. Await cardiology consultation. Given the patient's known aortic stenosis, this may complicate issues we will follow BMP and echocardiogram. Continue antibiotics for questionable pneumonia but may be able to taper based on lower respiratory cultures. The patient has had persistently elevated white blood cell count which is more elevated today. She is also anemic. Unclear if she is ever had a hematology outpatient evaluation. We will trend for now. Will hold additional attempts at diuresis given the patient's acute renal failure. We will trend lactate. Continue glycemic control with assistance of pharmacy. The patient is critically ill at this point in time with significant possibility of clinical deterioration and/or . An additional 70 minutes of critical care time was spent in evaluation management stabilization of this patient. Coding Level of Care Code Critical Care heath torrest'l 30 min
[2022-03-03] MEDS ORDERED: NITROGLYCERIN SL 0.4 MG/TAB TAB SL PRN (09:20)
[2022-03-03] MEDS ORDERED: ASPIRIN 81 MG ECTAB PO SCH (09:30)
[2022-03-03] MEDS: MAGNESIUM SULFATE / D5W 1 GM/100 ML BAG IV SCH ×2 (09:32→10:46)
[2022-03-03] MEDS: PHENYLEPHRINE HCL 20 MG in DEXTROSE 5% 500 ML IV SCH ×3 (09:33→18:17)
[2022-03-03] MEDS: cefTRIAXone SODIUM 2,000 MG in DEXTROSE 5% 50 ML IV SCH (09:38)
[2022-03-03] MEDS: propofoL 1,000 MG/100 ML VIAL IV SCH ×5 (09:39→22:04)
--- NOTE | 2022-03-03 09:42 | XRay Report ---
XR chest 1V portable CLINICAL HISTORY: intubation TECHNIQUE: Single frontal radiograph of the chest was obtained. Comparison: Comparison is made to chest radiograph 03/03/2022 FINDINGS: Endotracheal tube terminates 40 mm from the misti. Enteric tube is normal. Left subclavian catheter tip is in the lower SVC. Cardiomegaly is noted. Multifocal airspace opacities are seen. No evidence o f pleural effusion or pneumothorax. IMPRESSION: 1. Satisfactory position of endotracheal tube, enteric tube, and subclavian venous catheter. 2. Cardiomegaly. 3. Multifocal airspace opacities compatible pneumonia. ACT 112: Negative or not required by law. Electronically signed by: Moi Ring M.D. 03/03/2022 9:39 AM
--- NOTE | 2022-03-03 10:15 | XRay Report ---
XR chest 1V portable CLINICAL HISTORY: Sepsis TECHNIQUE: Single frontal radiograph of the chest was obtained. Comparison: Comparison is made to chest radiograph 07/14/2021 FINDINGS: No lines and tubes are seen. Cardiomegaly is noted. Multifocal airspace opacities are seen. Likely sm all bilateral pleural effusions are seen. IMPRESSION: 1. Multifocal airspace opacities favored to represent multifocal pneumonia with or without superimpo sed aspiration/atelectasis. 2. Likely small bilateral pleural effusions are seen. ACT 112: Negative or not required by law. Electronically signed by: Moi Ring M.D. 03/03/2022 10:13 AM
[2022-03-03 10:19] LABS: iSTAT Art Bld Gas pCO2 Correct 57 mmHg (35-46); iSTAT Art Bld Gas pH Corrected 7.279 (7.35-7.45); iSTAT Arterial Blood Gas HCO3 27 meg/L (19-24); iSTAT Arterial Blood Gas pCO2 57 mmHg (35-46); iSTAT Arterial Blood Gas pH 7.28 (7.35-7.45); iSTAT Arterial Blood Gas pO2 69 mmHg (80-95); iSTAT Arterial Blood Gas pO2 C 69; iSTAT Carbon Dioxide 29 mmol/L (24-31); iSTAT FiO2 100 %; iSTAT Hematocrit 31 % (37-47); iSTAT Hemoglobin 10.5 g/dl (12.0-16.0); iSTAT Potassium 4.4 mmol/L (3.3-5.0); iSTAT Site Art Line; iSTAT Sodium 125 mmol/L (135-144)
[2022-03-03] MEDS: IPRATROPIUM BROMIDE NEB SOLN 0.02% 2.5 ML VIAL INH SCH ×3 (10:29→19:53)
[2022-03-03] MEDS: LEVALBUTEROL 1.25MG/0.5ML NEB INH SCH ×3 (10:29→19:53)
[2022-03-03] MEDS: INSULIN ASPART PER UNIT SC SCH ×4 (10:47→20:28)
[2022-03-03] MEDS: ASPIRIN 81 MG CHEW PO SCH (10:47)
[2022-03-03] MEDS: ESCITALOPRAM OXALATE 20 MG TAB PO SCH (10:48)
[2022-03-03] MEDS: ATORVASTATIN 40 MG TAB PO SCH (10:48)
[2022-03-03] MEDS: TOPIRAMATE 25 MG TAB PO SCH ×2 (10:48→20:25)
[2022-03-03] MEDS: LANTUS PER UNIT CHARGE SQ SCH (10:48)
[2022-03-03] MEDS: CLOPIDOGREL BISULFATE 75 MG TAB PO SCH (10:48)
[2022-03-03] MEDS: fentaNYL citrate 2,500 MCG/250 ML BAG IV SCH ×2 (10:49→18:17)
[2022-03-03] MEDS: GABAPENTIN 250 MG/5 ML 470 ML BTL NG SCH ×2 (10:58→20:25)
[2022-03-03] MEDS: HEPARIN SOD 5,000 UNIT/0.5 ML VIAL SQ SCH ×2 (10:58→20:27)
[2022-03-03] MEDS ORDERED: ROCURONIUM BROMIDE 10 MG/ML 5 ML VIAL IV ONE (11:50)
[2022-03-03] MEDS ORDERED: MIDAZOLAM HCL 5 MG/ML VIAL IV ONE (11:50)
[2022-03-03] MEDS ORDERED: ETOMIDATE 2 MG/ML 20 ML VIAL IV ONE (11:50)
--- NOTE | 2022-03-03 12:06 | Cardiology Consultation ---
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 Blood cultures have been drawn but not yet resulted Luckily, there is not appear to be any abscess tract formation around the annulus, no clear indication for urgent surgery Patient has been started on broad-spectrum antibiotic coverage and will obviously defer to the primary team and infectious disease the choice of agents Her LV systolic function is now significantly reduced as well from baseline. Without objective finding of active ischemia would suspect this is due to catecholamine surge in the setting of significant infection, although, myocarditis cannot be ruled out at this point. Likely though, the patient is hemodynamically stable with only very low-dose vasopressor support Chest x-ray reported as likely multifocal pneumonia, obviously will defer to critical care team Unfortunately, other than antibiotic coverage and supportive care I do not see any further treatment options from a cardiac standpoint. Should the patient become hemodynamically unstable I would suggest transfer to a tertiary care facility with ECMO capabilities should the patient's family wish to pursue aggressive measures We will continue to follow History of Present Illness Reason for Consultation: CHF Requesting Physician: CHRISTIAN Attending Physician: Debora Moon MD History of Present Illness Ms. Gonzalez is a very medically complex 42-year-old woman well-known to our cardiology practice. She presented to [facility] in the early a.m. of 03/03/2022 with complaints of shortness of breath. According to review of her medical records, EMS was summoned and the patient reported shortness of breath and a productive cough that started a few days previously. She also reported several days of weight gain and fluid retention. Upon arrival EMS reported that her pulse ox was 40%. She was started on a nonrebreather and then transition to CPAP. She received 80 mg of IV Lasix with initial 2 L output of urine. She reported that she has been compliant with her medications. Upon arrival to the emergency department she continued to have significant r espiratory distress and was ultimately intubated by the critical care team. Patient is currently intubated and sedated. History obtained through review of medical records and discussion with bedside nursing and Dr. Moon. Cardiac Problem List: Premature ASCVD Status post 2-vessel coronary intervention in 10/2016, receiving ROJAS to the ramus intermedius and distal circumflex for NTEMI Repeat catheterization on 02/23/2020, s/p PCI with ROJAS to the RCA PDA on 02/23/20 Mixed aortic valve disease, with moderate aortic stenosis and mild aortic regurgitation via September 19, 2020 transesophageal echocardiogram Diastolic congestive heart failure Hypertension Hyperlipidemia Allergies Allergy/AdvReac Type Severity Reaction Status Date / Time lidocaine Allergy Intermediate HIVES Verified 07/10/21 21:33 procaine Allergy Intermediate HIVES Verified 07/10/21 21:33 Penicillins Allergy Mild HAD NO Verified 07/10/21 21:33 PROBLEM WITH ZOSYN strawberry Allergy Mild HIVES Verified 07/10/21 21:33 cephalexin AdvReac Intermediate YEAST Verified 07/10/21 21:33 INFECTIONS tramadol AdvReac Intermediate SEIZURES Verified 07/10/21 21:33 azithromycin AdvReac Mild STOMACH Verified 07/10/21 21:33 PAIN Home Medications Medication Instructions Recorded Confirmed Type albuterol sulfate 2.5 mg/3 mL 2.5 mg inhalation Q4 PRN 07/10/21 03/03/22 History (0.083 %) solution for nebulization WHEEZE/COUGH albuterol sulfate 90 mcg/actuation 2 puff inhalation Q4 PRN Shortness 07/10/21 03/03/22 History aerosol inhaler Of Breath Or Wheezing atorvastatin 80 mg tablet 80 mg PO DAILY 07/10/21 03/03/22 History benzonatate 100 mg capsule 100 mg PO TID PRN Cough 07/10/21 03/03/22 History buprenorphine 8 mg-naloxone 2 mg 0.5 tab sublingual TID 07/10/21 03/03/22 History sublingual tablet buspirone 15 mg tablet 15 mg PO BID 07/10/21 03/03/22 History clopidogrel 75 mg tablet 75 mg PO DAILY 07/10/21 03/03/22 History cyclobenzaprine 10 mg tablet 10 mg PO BID 07/10/21 03/03/22 History escitalopram oxalate 20 mg tablet 20 mg PO DAILY 07/10/21 03/03/22 History glipizide 10 mg tablet 10 mg PO DAILY 07/10/21 03/03/22 History levetiracetam 500 mg tablet 500 mg PO BID 07/10/21 03/03/22 History lisinopril 5 mg tablet 2.5 mg PO DAILY 07/10/21 03/03/22 History loratadine 10 mg tablet 10 mg PO DAILY 07/10/21 03/03/22 History medroxyprogesterone 150 mg/mL 150 mg IM .Q3MO 07/10/21 03/03/22 History intramuscular suspension meloxicam 7.5 mg tablet 7.5 mg PO DAILY 07/10/21 03/03/22 History metformin 1,000 mg tablet 1,000 mg PO BID 07/10/21 03/03/22 History metoprolol succinate 25 mg 25 mg PO DAILY 07/10/21 03/03/22 History tablet,extended release 24 hr omeprazole 20 mg tablet,delayed 20 mg PO DAILY 07/10/21 03/03/22 History release polyethylene glycol 3350 17 gram 17 g PO DAILY PRN Constipation 07/10/21 03/03/22 History oral powder packet (Miralax) potassium chloride 20 mEq 20 meq PO DAILY 07/10/21 03/03/22 History tablet,extended release(part/cryst) (Klor-Con M) spironolactone 25 mg tablet 12.5 mg PO QAM 07/10/21 03/03/22 History topiramate 25 mg tablet 25 mg PO BID 07/10/21 03/03/22 History torsemide 20 mg tablet 20 mg PO BID 07/10/21 03/03/22 History trazodone 50 mg tablet 75 mg PO HS 07/10/21 03/03/22 History aspirin 81 mg tablet,delayed 81 mg PO DAILY 03/03/22 03/03/22 History release escitalopram oxalate 10 mg tablet 10 mg PO DAILY 03/03/22 03/03/22 History famotidine 20 mg tablet 20 mg PO BID heartburn 03/03/22 03/03/22 History ferrous sulfate 325 mg (65 mg 325 mg PO DIRECTED 03/03/22 03/03/22 History iron) tablet fluticasone furoate 200 1 inh inhalation DAILY 03/03/22 03/03/22 History mcg-vilanterol 25 mcg/dose inhalation powder (Breo Ellipta) gabapentin 300 mg capsule 300 mg PO TID 03/03/22 03/03/22 History liraglutide 0.6 mg/0.1 mL (18 mg/3 1.2 mg subcut DAILY 03/03/22 03/03/22 History mL) subcutaneous pen injector meclizine 25 mg tablet 25 mg PO TID PRN Dizziness 03/03/22 03/03/22 History ytjqpubr-ecxolanqk-lehaumeny 3.5 4 drp otic (ear) TID 03/03/22 03/03/22 History mg/mL-10,000 unit/mL-1 % ear solution nitroglycerin 0.4 mg sublingual 0.4 mg sublingual DAILY PRN Chest 03/03/22 03/03/22 History tablet Pain Patient History Medical History Abnormal CT scan, chest Acute electrocardiogram changes Acute respiratory failure with hypoxia Altered mental status, unspecified Aortic regurgitation Aortic stenosis Asthma Atypical chest pain Cannabis abuse Cellulitis of both lower extremities Chronic diastolic CHF (congestive heart failure) Coronary artery disease Depression Diabetes mellitus, type 2 Encounter for smoking cessation counseling GERD (gastroesophageal reflux disease) Gram negative sepsis Hepatitis C "Antibiotic screen positive, quantitative RNA positive 08/30/17" Hepatosplenomegaly History of drug abuse History of DVT (deep vein thrombosis) History of renal calculi Hypertension Hypocalcemia Opiate abuse, continuous Overdose Seizure disorder Surgical History History of cardiac cath 2017- 1 ROJAS to ramus, 2 ROJAS to L circumflex. 40-50% plaque to LAD 2018- distal disease (80%) within PDA History of carpal tunnel surgery History of lumbar spinal fusion Hx of tonsillectomy Status post cholecystectomy Family History Other Diabetes Heart disease Hypertension Kidney stones Seizures Social History Smoking Status: Heavy tobacco smoker Tobacco Type: Cigarettes Cigarettes Per Day: 10; Number of Years Since Quit: 31; Second Hand Exposure: Yes; Hx Alcohol Use: Yes Alcohol type: beer, wine and hard liquor Hx Substance Use: Yes Non-Prescribed Medications: Heroin, IV Drugs and Methamphetamines Last Used Substance: Unknown Last Used Substance Other:: 1.5 YEARS AGO Substance Use Type Other:: 3 years drug free per record Preferred Language: Uzbek Communication Ability: Effective Visual Impairment: No Limitations Hearing Ability: Normal Police Clerk Required: No Beliefs That Will Affect Care: None marital status: Single Current Living Situation: Family Current Living Situation Comment: LIVES WITH ROOMMATES How many Children do You have: 1 Feels Safe at Home: Yes Assistive Devices: None Review of Systems Review of Systems: Unobtainable due to endotracheal tube Physical Exam Physical Exam: General: Intubated and sedated. No acute distress. HEENT: Normocephalic, atraumatic. Pupils equal, round and reactive to light and accommodation. Extraocular muscles are intact. Anicteric sclera. Moist mucous membranes. Neck: No JVD. No bruit. Cardiovascular: Regular. Positive S-4. Normal S-1 and S-2. No S-3. 3/6 holosystolic ejection murmur, 5th intercostal space, mid-clavicular line without radiation. No rubs. Pulmonary: Clear to auscultation bilaterally. No rales, rhonchi, or wheezing. Abdomen: Bowel sounds x 4, soft. No rebound, guarding or tenderness. No organomegaly. Extremities: No clubbing, cyanosis or edema. +2 pedal pulses bilaterally. Skin: Warm and dry. Nonspecific lower extremity skin changes. No visible track sparks. No Osler's nodes or [place] lesions identified Results & Data ([facility]) Vital Signs (Past 12 Hours) Vital Signs Temp Pulse Pulse Pulse Pulse Resp BP 03/03/22 10:47 123 H 35 H 03/03/22 09:08 128 H 30 H 03/03/22 08:10 126 H 20 03/03/22 07:49 122 H 28 H 03/03/22 07:25 122 H 24 140/72 03/03/22 07:40 88 22 03/03/22 06:45 124 H 124 H 24 03/03/22 06:22 122 H 24 03/03/22 06:24 119 H 35 H 03/03/22 06:22 119 H 35 H 03/03/22 05:54 121 H 26 H 03/03/22 05:08 118 H 26 H 03/03/22 04:25 03/03/22 04:27 116 H 26 H 03/03/22 03:42 116 H 38 H 03/03/22 03:32 03/03/22 04:10 36.6 C 117 H 28 H 102/64 03/03/22 04:10 03/03/22 04:09 03/03/22 04:04 BP Pulse Ox O2 Del Method FiO2 03/03/22 10:47 94 100 03/03/22 09:08 90 90 03/03/22 08:10 90 100 03/03/22 07:49 136/61 90 03/03/22 07:25 92 BiPAP 03/03/22 07:40 95 70 03/03/22 06:45 115/87 92 BiPAP 03/03/22 06:22 129/83 96 BiPAP 03/03/22 06:24 93 70 03/03/22 06:22 93 BiPAP 70 03/03/22 05:54 106/79 94 BiPAP 03/03/22 05:08 123/88 96 Room Air 03/03/22 04:25 98 70 03/03/22 04:27 116/84 92 BiPAP 03/03/22 03:42 96 80 03/03/22 03:32 97 BiPAP 03/03/22 04:10 99 BiPAP 03/03/22 04:10 99 BiPAP 03/03/22 04:09 99 BiPAP 03/03/22 04:04 BiPAP (1) Diabetes mellitus, type 2 Diabetes mellitus complication status: with unspecified complications 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
[2022-03-03] MEDS ORDERED: XOPENEX/ATROVENT 1.25mg/0.5MG NEB COMBO NEB SCH (13:00)
--- NOTE | 2022-03-03 13:25 | Electrocardiogram Report ---
Test Reason : Blood Pressure : / mmHG Vent. Rate : 117 BPM Atrial Rate : 117 BPM P-R Int : 140 ms QRS Dur : 082 ms QT Int : 334 ms P-R-T Axes : 053 048 -29 degrees QTc Int : 465 ms Poor data quality, interpretation may be adversely affected Sinus tachycardia Nonspecific ST and T wave abnormality Abnormal ECG When compared with ECG of 10-JUL-2021 18:40, No significant change was found Confirmed by Jung Metzger ([id number]) on 03/03/2022 1:24:48 PM Referred By: REFERRED SELF Confirmed By:Jung Metzger
[2022-03-03] MEDS ORDERED: GABAPENTIN 300 MG CAP PO SCH (14:00)
[2022-03-03] MEDS: fentaNYL BOLUS from BAG IV PRN (14:44)
[2022-03-03] MEDS ORDERED: Flu Vaccine (Fluarix) 0.5mL SYR (Standard Dose) IM ONE (14:45)
[2022-03-03] MEDS ORDERED: PNEUMOCOCCAL Polysaccharide Vaccine 25mcg/0.5mL vial/Syr IM ONE (14:45)
[2022-03-03] MEDS: MIDAZOLAM HCL 1 MG/ML 2ML VIAL IV PRN (15:09)
[2022-03-03] MEDS: ICU ELECTROLYTE REPLACEMENT PROTOCOL SCH (16:08)
[2022-03-03 16:11] LABS: iSTAT Art Bld Gas pCO2 Correct 43 mmHg (35-46); iSTAT Art Bld Gas pH Corrected 7.385 (7.35-7.45); iSTAT Arterial Blood Gas HCO3 25 meg/L (19-24); iSTAT Arterial Blood Gas pCO2 42 mmHg (35-46); iSTAT Arterial Blood Gas pH 7.39 (7.35-7.45); iSTAT Arterial Blood Gas pO2 77 mmHg (80-95); iSTAT Arterial Blood Gas pO2 C 79; iSTAT Carbon Dioxide 27 mmol/L (24-31); iSTAT FiO2 60 %; iSTAT Hematocrit 28 % (37-47); iSTAT Hemoglobin 9.5 g/dl (12.0-16.0); iSTAT Site Art Line; iSTAT Sodium 125 mmol/L (135-144)
--- NOTE | 2022-03-03 16:25 | Hospitalist Progress Note ---
Date of Service March 03, 2022 Assessment & Plan (1) Acute respiratory failure with hypoxia: Plan: Mechanical ventilation support Present on admission with worsening SOB, congestion and productive cough CXR showed cardiomegaly. Multifocal airspace opacities compatible pneumonia. received IV solumedrol and meropenem on admission Currently sedated and intubated on vent support Vent management as per hospital unit clerk Continue IV abx with ceftriaxone and doxycycline Sepsis Met sepsis criteria on admission with tachycardia, leukocytosis, elevate RR WBC 31.9 K lactic acid and procalcitonin elevated Blood cx pending Currently on pressors Continue monitor Acute systolic CHF exacerbation BNP 516 on admission Received IV lasix ECHO showed severely reduced LV systolic function with severe global hypokinesis with EF 30-35% cardiology on board Continue Monitor I/O Tricuspid valve mass Severe tricuspid regurgitation Given her newly discovered tricuspid annular lesion and severe tricuspid regurgitation seen on ECHO education reviewer believe the patient 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 there is not appear to be any abscess tract formation around the annulus, no clear indication for urgent surgery Blood cx pending Continue broad spectrum abx Will consult ID Elevated troponin Mostly demand ischemia due to acute respiratory failure troponin on admisison 45.4 then increased to 91.7 Cardiology on board ECHO showed ECHO showed severely reduced LV systolic function with severe global hypokinesis with EF 30-35% Continue aspirin, plavix and statin Metoprolol discontinued due to Low BP Continue monitor closely AJIT Creatinine 1.5 on admission Continue monitor creatinine while received IV lasix Continue monitor BMP DVT px on heparin subq Code status FULL code Admission and Anticipated Discharge Date Admission Date: March 03, 2022 Subjective Pt was seen and examined for respiratory failure Sedated and intubated on mechanical vent support Review of Systems Review of Systems: All systems reviewed & are unremarkable except as noted in Subjective Physical Exam Physical Exam: General- sedated Head- atraumatic Eyes- PERRL ENT- Intubated Neck- supple, no JVD Lungs- Mechanical ventilation support, no wheezing Heart- regular rhythm; +systolic murmur Abdomen- normal bowel sounds, soft, nontender Extremities- no calf tenderness Neuro- sedated Skin- warm & dry, No Osler's nodes or Janeway lesions identified Results & Data Results & Data ([facility]) Vital Signs (Past 12 Hours) Vital Signs Temp Pulse Pulse Pulse Pulse Resp BP 03/03/22 16:00 37.4 C 104 H 25 H 03/03/22 16:00 100/55 L 03/03/22 15:00 37.3 C 102 H 22 03/03/22 15:00 102/69 03/03/22 14:00 37.3 C 105 H 21 03/03/22 14:00 101/68 03/03/22 16:00 03/03/22 16:00 102 H 102/69 03/03/22 16:00 102 H 03/03/22 13:00 37.1 C 110 H 25 H 03/03/22 13:00 109/62 03/03/22 12:00 37.0 C 118 H 32 H 03/03/22 12:00 97/77 L 03/03/22 11:00 103/80 03/03/22 11:00 36.9 C 121 H 29 H 03/03/22 10:13 120/83 03/03/22 10:13 36.9 C 117 H 27 H 03/03/22 10:00 36.9 C 118 H 25 H 03/03/22 08:22 111/80 03/03/22 08:22 130 H 16 03/03/22 08:20 130 H 16 03/03/22 08:20 104/83 03/03/22 08:18 131 H 28 H 03/03/22 08:18 102/78 03/03/22 08:15 104/74 03/03/22 08:15 128 H 16 03/03/22 08:13 126 H 21 03/03/22 08:13 102/73 03/03/22 08:11 100/80 03/03/22 08:11 123 H 20 03/03/22 08:06 122 H 23 03/03/22 08:06 88/65 L 03/03/22 08:04 101/75 03/03/22 08:04 118 H 28 H 03/03/22 08:00 126 H 18 03/03/22 08:00 137/97 03/03/22 07:45 121 H 37 H 03/03/22 08:30 03/03/22 12:24 03/03/22 12:00 03/03/22 10:47 123 H 35 H 03/03/22 09:08 128 H 30 H 03/03/22 08:10 126 H 20 03/03/22 07:49 122 H 28 H 03/03/22 07:25 122 H 24 140/72 03/03/22 07:40 88 22 03/03/22 06:45 124 H 124 H 24 03/03/22 06:22 122 H 24 03/03/22 06:24 119 H 35 H 03/03/22 06:22 119 H 35 H 03/03/22 05:54 121 H 26 H 03/03/22 05:08 118 H 26 H 03/03/22 04:25 03/03/22 04:27 116 H 26 H 03/03/22 04:10 36.6 C 117 H 28 H 102/64 03/03/22 04:10 BP Pulse Ox O2 Del Method FiO2 03/03/22 16:00 95 03/03/22 16:00 03/03/22 15:00 99 03/03/22 15:00 03/03/22 14:00 99 03/03/22 14:00 03/03/22 16:00 50 03/03/22 16:00 03/03/22 16:00 03/03/22 13:00 95 Mechanical Vent 100 03/03/22 13:00 03/03/22 12:00 94 03/03/22 12:00 03/03/22 11:00 03/03/22 11:00 94 03/03/22 10:13 03/03/22 10:13 92 03/03/22 10:00 90 03/03/22 08:22 03/03/22 08:22 92 03/03/22 08:20 91 03/03/22 08:20 03/03/22 08:18 91 03/03/22 08:18 03/03/22 08:15 03/03/22 08:15 91 03/03/22 08:13 89 L 03/03/22 08:13 03/03/22 08:11 03/03/22 08:11 83 L 03/03/22 08:06 78 L 03/03/22 08:06 03/03/22 08:04 03/03/22 08:04 85 L 03/03/22 08:00 99 03/03/22 08:00 03/03/22 07:45 90 03/03/22 08:30 Mechanical Vent 100 03/03/22 12:24 Mechanical Vent 03/03/22 12:00 100 11/05/22 10:47 94 100 03/03/22 09:08 90 90 03/03/22 08:10 90 100 03/03/22 07:49 136/61 90 03/03/22 07:25 92 BiPAP 03/03/22 07:40 95 70 03/03/22 06:45 115/87 92 BiPAP 03/03/22 06:22 129/83 96 BiPAP 03/03/22 06:24 93 70 03/03/22 06:22 93 BiPAP 70 03/03/22 05:54 106/79 94 BiPAP 03/03/22 05:08 123/88 96 Room Air 03/03/22 04:25 98 70 03/03/22 04:27 116/84 92 BiPAP 03/03/22 04:10 99 BiPAP 03/03/22 04:10 99 BiPAP
[2022-03-03] MEDS ORDERED: fentaNYL citrate 2,500 MCG/250 ML BAG IV SCH (18:30)
[2022-03-03] MEDS: FAMOTIDINE 20 MG TAB PO SCH (20:26)
[2022-03-03] MEDS: DOXYCYCLINE HYCLATE 100 MG CAP PO SCH (20:27)
[2022-03-04] MEDS: PROPOFOL BOLUS FROM BAG IV PRN (00:18)
[2022-03-04] MEDS: fentaNYL BOLUS from BAG IV PRN (00:19)
[2022-03-04] MEDS: PHENYLEPHRINE HCL 20 MG in DEXTROSE 5% 500 ML IV SCH ×3 (01:55→21:50)
[2022-03-04] MEDS: propofoL 1,000 MG/100 ML VIAL IV SCH ×6 (01:55→19:40)
[2022-03-04] MEDS: MIDAZOLAM HCL 1 MG/ML 2ML VIAL IV PRN ×2 (03:26→13:02)
[2022-03-04 04:11] LABS: Basophils # (auto) 0.03 K/uL (0-0.2); Basophils % (auto) 0.1 %; Eosinophils # (auto) 0.17 K/uL (0-0.50); Eosinophils % (auto) 0.7 %; Hemoglobin 8.2 g/dl (12.0-16.0); Immature Granulocytes # (auto) 0.16 K/uL (0.00-0.02); Immature Granulocytes % (auto) 0.7 %; Lymphocytes # (auto) 2.68 K/uL (1.2-3.4); Lymphocytes % (auto) 11.5 %; Mean Corpuscular Hgb Conc 34.2 g/dL (32.0-36.0); Mean Corpuscular Volume 81.9 fL (80.0-100.0); Mean Platelet Volume 9.4 fL (9.4-12.3); Monocytes # (auto) 0.67 K/uL (0.24-0.82); Monocytes % (auto) 2.9 %; Neutrophils % (auto) 84.1 %; Platelet Count 371 K/uL (130-400); RDW Standard Deviation 51.5 fL (36.4-46.3); Red Blood Count 2.93 M/uL (3.93-5.22); White Blood Count 23.31 K/ul (4.8-10.8)
[2022-03-04 05:02] LABS: Albumin Globulin Ratio 1.3 (0.9-2); Albumin Level 3.4 gm/dl (3.4-5.0); BUN Creatinine Ratio 18.9 (10-20); Bilirubin,Total 0.5 mg/dl (0.2-1.0); Est GFR (African American) 59.4 ml/min; Est GFR (Non-African American) 51.3 ml/min; Globulin 2.7 gm/dl (2.5-4.0); Magnesium 1.9 mg/dl (1.7-2.4); Potassium 3.8 mmol/L (3.5-5.1); Total Protein 6.1 gm/dl (6.0-8.3)
[2022-03-04] MEDS: fentaNYL citrate 2,500 MCG/250 ML BAG IV SCH ×3 (05:11→17:31)
[2022-03-04 05:21] LABS: iSTAT Art Bld Gas pCO2 Correct 44 mmHg (35-46); iSTAT Art Bld Gas pH Corrected 7.423 (7.35-7.45); iSTAT Arterial Blood Gas HCO3 28 meg/L (19-24); iSTAT Arterial Blood Gas pCO2 43 mmHg (35-46); iSTAT Arterial Blood Gas pH 7.43 (7.35-7.45); iSTAT Arterial Blood Gas pO2 70 mmHg (80-95); iSTAT Arterial Blood Gas pO2 C 72; iSTAT Carbon Dioxide 30 mmol/L (24-31); iSTAT FiO2 50 %; iSTAT Hematocrit 25 % (37-47); iSTAT Hemoglobin 8.5 g/dl (12.0-16.0); iSTAT Potassium 3.7 mmol/L (3.3-5.0); iSTAT Site Art Line; iSTAT Sodium 127 mmol/L (135-144)
[2022-03-04] MEDS ORDERED: MAGNESIUM SULFATE / D5W 1 GM/100 ML BAG IV ONE (05:45)
[2022-03-04] MEDS ORDERED: POTASSIUM CHLORIDE / WTR 10 MEQ/100 ML PLCT IV ONE (05:45)
[2022-03-04] MEDS: HEPARIN SOD 5,000 UNIT/0.5 ML VIAL SQ SCH ×3 (06:41→20:56)
[2022-03-04] MEDS: ICU ELECTROLYTE REPLACEMENT PROTOCOL SCH ×2 (06:48→15:41)
--- NOTE | 2022-03-04 06:58 | XRay Report ---
XR chest 1V portable CLINICAL HISTORY: Respiratory failure. COMPARISON STUDY: Chest radiograph March 03, 2022. Chest CT July 10, 2021. FINDINGS: Tip of endotracheal tube is partially obscured on this exam but approximately 2.3 cm above the misti. There is no pneumothorax. Diffuse interstitial thickening and bilateral opacities have im proved. There are suspected small bilateral pleural effusions. Cardiomegaly is unchanged. Tip of naso gastric tube projects over the body of the stomach. Left subclavian central line is in place. IMPRESSION: 1. Tip of endotracheal tube approximately 2.3 cm above the misti. 2. Improvement in interstitial thickening and bilateral airspace opacities. ACT 112: Negative or not required by law. Electronically signed by: Kush Rueda M.D. 03/04/2022 6:57 AM
[2022-03-04] MEDS: INSULIN ASPART PER UNIT SC SCH ×4 (07:30→21:22)
[2022-03-04] MEDS: IPRATROPIUM BROMIDE NEB SOLN 0.02% 2.5 ML VIAL INH SCH ×4 (07:48→20:04)
[2022-03-04] MEDS: LEVALBUTEROL 1.25MG/0.5ML NEB INH SCH ×4 (07:48→20:04)
[2022-03-04] MEDS ORDERED: predniSONE 20 MG TAB PO SCH (09:00)
[2022-03-04] MEDS ORDERED: FLUTICASONE/VILANTEROL 200/25MCG 14 PUFFS/INHALER INH SCH (09:00)
[2022-03-04] MEDS ORDERED: VANCOMYCIN CONSULT ACTIVE PRN (09:07)
--- NOTE | 2022-03-04 09:10 | Critical Care Progress Note ---
Date of Service March 04, 2022 Assessment & Plan (1) Tricuspid valve mass: (2) Severe tricuspid regurgitation: (3) Aortic stenosis: (4) Acute systolic (congestive) heart failure: (5) Abnormal CT scan, chest: (6) Acute respiratory failure with hypoxia: Plan Impression: 42-year-old female with history of diabetes, opiate abuse, and aortic stenosis admitted with diffuse pulmonary infiltrates and hypoxemic respiratory failure. She was intubated shortly after arrival to the ICU. 24-hour events: Patient was admitted to the ICU. She was promptly intubated central line and arterial lines were placed. She required pressors in the form of Sal-Synephrine for a brief period of time. Echocardiogram demonstrated a 1 cm tricuspid vegetation. She is been on antibiotics but cultures have been negative. Her oxygenation overnight has improved. Recommendations: 1. Neurologic: Continue sedation with propofol and fentanyl until the patient's ventilatory parameters are consistent with ventilator liberation. She has a history of opiate abuse and is on naloxone buprenorphine in the outpatient setting which is currently being held. Questionable prior history of seizure disorder and will continue Keppra, Topamax and gabapentin. Continue Celexa. 2. Cardiovascular: Mobile tricuspid 10 mm lesion concerning for vegetation however cultures are negative to date. Her hypotension is now resolved. Will await final cultures. May consider HACEK organisms if cultures are negative. Repeat blood cultures today. Unclear if STEVEN would offer additional benefit. Defer to cardiology. EF significantly reduced compared to prior echocardiogram. Known aortic stenosis which appears stable. Diuresis as tolerated. Holding antihypertensives given labile hemodynamics. Lactate is clearing. Troponin mildly elevated. ECG unchanged. 3. Pulmonary: Acute hypoxemic respiratory failure secondary to what appears to be pulmonary edema. Respiratory cultures are also positive for Staphylococcus with speciation pending. Continue to wean FiO2 and PEEP as tolerated. Current settings are prohibitive for ventilator liberation. Oxygenation is improved over the last 24 hours. 4. 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 Day #2 Rocephin doxycycline. We will discontinue doxycycline and place on vancomycin. Repeat blood cultures today. Procalcitonin was negative on presentation. ID consultation has been requested by the primary admitting service and is currently pending. Will defer additional antimicrobial agents to ID. Await speciation of staph from respiratory specimens. White blood cell count significantly improved today. Check tox screen. Presence of heart failure in the setting of endocarditis may warrant discussion with cardiac surgery. Defer to cardiology. They felt that transfer given her normal hemodynamics was not indicated initially. At risk for clinical deterioration 5. GI: Dietary consultation for initiation of tube feeding. Continue H2 vijay. 6. Renal: ICU electrolyte replacement protocol. Mild hyponatremia slightly improved today. Continue to follow. Serum creatinine is improving. Acid-base status acceptable and electrolytes acceptable. 7. Heme-onc: Mild anemia. No indication for transfusion currently. Continue to trend. Hemolysis is a consideration given the patient's valvular disease. Check LDH and haptoglobin 8. Endocrine: Glycemic control per protocol. The patient is critically ill at this point time with significant possibility of clinical deterioration and or . A total of 55 minutes in critical care time was spent evaluation management stabilization of this patient including discussion with bedside critical care nurse. Admission and Anticipated Discharge Date Admission Date: March 03, 2022 Subjective Patient is intubated and sedated Review of Systems Review of Systems: Unobtainable due to endotracheal tube Physical Exam Constitutional: WD/WN, vitals as above Neck: trachea midline, no thyromegaly Respiratory: normal respiratory effort, lungs clear to auscultation Cardiovascular: RRR, no murmur, no edema Gastrointestinal (Abdomen): normal bowel sounds, soft, nontender, no hepatosplenomegaly Musculoskeletal: Extremities: extremities normal to inspection Skin: no rashes, warm and dry Neurologic: Nonfocal exam Lymphatic: no cervical lymphadenopathy Results & Data Results & Data ([facility]) Vital Signs (Past 12 Hours) Vital Signs Temp Pulse Resp BP Pulse Ox O2 Del Method FiO2 03/04/22 07:48 93 H 23 95 40 03/04/22 07:48 26 H 95 Mechanical Vent 50 03/04/22 07:00 37.2 C 81 21 95 03/04/22 07:00 127/66 03/04/22 04:00 37.3 C 87 20 90 03/04/22 04:00 102/71 03/04/22 04:00 40 03/04/22 04:00 92 H 115/61 03/04/22 03:00 37.4 C 88 21 92 03/04/22 03:00 113/73 03/04/22 02:00 37.4 C 91 H 20 90 03/04/22 03:26 96 H 19 94 40 03/04/22 01:00 EST 37.4 C 92 H 21 92 03/04/22 01:00 EST 108/63 03/04/22 00:00 37.4 C 89 20 95 03/04/22 00:00 108/74 03/04/22 00:00 40 03/04/22 00:00 90 111/63 03/04/22 00:00 91 H 03/04/22 00:05 89 20 96 40 03/03/22 23:00 37.4 C 91 H 21 95 03/03/22 23:00 96/65 L Critical Care Results & Data Vital Signs (Past 12 Hours) Vital Signs Temp Pulse Resp BP Pulse Ox O2 Del Method FiO2 03/04/22 07:48 93 H 23 95 40 03/04/22 07:48 26 H 95 Mechanical Vent 50 03/04/22 07:00 37.2 C 81 21 95 03/04/22 07:00 127/66 03/04/22 04:00 37.3 C 87 20 90 03/04/22 04:00 102/71 03/04/22 04:00 40 03/04/22 04:00 92 H 115/61 03/04/22 03:00 37.4 C 88 21 92 03/04/22 03:00 113/73 03/04/22 02:00 37.4 C 91 H 20 90 03/04/22 03:26 96 H 19 94 40 03/04/22 01:00 EST 37.4 C 92 H 21 92 03/04/22 01:00 EST 108/63 03/04/22 00:00 37.4 C 89 20 95 03/04/22 00:00 108/74 03/04/22 00:00 40 03/04/22 00:00 90 111/63 03/04/22 00:00 91 H 03/04/22 00:05 89 20 96 40 03/03/22 23:00 37.4 C 91 H 21 95 03/03/22 23:00 96/65 L Lab & Micro Results (Past 24 Hours) RBC 2.93 M/uL (3.93-5.22) L 03/04/22 WBC 23.31 K/ul (4.8-10.8) H 03/04/22 Hgb 8.2 g/dl (12.0-16.0) L 03/04/22 Hct 24.0 % (34.1-44.9) L 03/04/22 MCV 81.9 fL (80.0-100.0) 03/04/22 MCH 28.0 pg (25.0-34.0) 03/04/22 MCHC 34.2 g/dL (32.0-36.0) 03/04/22 RDW Standard Deviation 51.5 fL (36.4-46.3) H 03/04/22 RDW Coefficient of Variation 17.0 % (11.5-14.5) H 03/04/22 Plt Count 371 K/uL (130-400) 03/04/22 MPV 9.4 fL (9.4-12.3) 03/04/22 Neutrophils (%) (Auto) 84.1 % 03/04/22 Lymphocytes (%) (Auto) 11.5 % 03/04/22 Monocytes # (Auto) 0.67 K/uL (0.24-0.82) 03/04/22 Eosinophils # (Auto) 0.17 K/uL (0-0.50) 03/04/22 Immature Granulocyte % (Auto) 0.7 % 03/04/22 Neutrophils # (Auto) 19.60 K/uL (1.4-6.5) H 03/04/22 Lymphocytes # (Auto) 2.68 K/uL (1.2-3.4) 03/04/22 Monocytes # (Auto) 0.67 K/uL (0.24-0.82) 03/04/22 Eosinophils # (Auto) 0.17 K/uL (0-0.50) 03/04/22 Basophils # (Auto) 0.03 K/uL (0-0.2) 03/04/22 Immature Granulocyte # (Auto) 0.16 K/uL (0.00-0.02) H 03/04 Na 127 mmol/L (136-145) L 03/04/22 K 3.8 mmol/L (3.5-5.1) 03/04/22 Cl 91 mmol/L (98-107) L 03/04/22 CO2 27 mmol/L (21-32) 03/04/22 Anion Gap 9 (3-11) 03/04/22 BUN 24 mg/dl (6-23) H 03/04/22 Creatinine 1.27 mg/dl (0.6-1.2) H 03/04/22 Estimated GFR ( Amer) 59.4 ml/min 03/04/22 Estimated GFR (Non-Af Amer) 51.3 ml/min 03/04/22 BUN/Creatinine Ratio 18.9 (10-20) 03/04/22 Glu 99 mg/dl (70-99(Fasting)) 03/04/22 Ca 8.0 mg/dl (8.5-10.1) L 03/04/22 Phosphorus Level 4.0 mg/dl (2.5-4.9) 03/04/22 Total Bilirubin 0.5 mg/dl (0.2-1.0) 03/04/22 AST 30 U/L (13-39) 03/04/22 ALT 13 U/L (7-52) 03/04/22 Alkaline Phosphatase 92 U/L (34-104) 03/04/22 TP 6.1 gm/dl (6.0-8.3) 03/04/22 Albumin 3.4 gm/dl (3.4-5.0) 03/04/22 Globulin 2.7 gm/dl (2.5-4.0) 03/04/22 Albumin/Globulin Ratio 1.3 (0.9-2) 03/04/22 Mg 1.9 mg/dl (1.7-2.4) 03/04/22 03:58 Calcium Level 8.0 mg/dl (8.5-10.1) L 03/04/22 03:58 Caesar Test NA 03/04/22 05:06 Microbiology 03/03/22 Unknown Gram Stain - Final Sputum,Vent Suction Sputum Culture - Preliminary Staphylococcus species 03/03/22 05:25 Urine Culture - Preliminary Urine,Straight Cath Pin-point growth present, reincubating. 03/03/22 04:20 Aerobic Blood Culture - Preliminary Blood No growth in Aerobic bottle after 24 hours. 03/03/22 04:21 Aerobic Blood Culture - Preliminary Blood No growth in Aerobic bottle after 24 hours. Diagnostic Findings (Past 24 Hours) Chest X-Ray 03/03/22 03:43 XR chest 1V portable CLINICAL HISTORY: Sepsis TECHNIQUE: Single frontal radiograph of the chest was obtained. Comparison: Comparison is made to chest radiograph 07/14/2021 FINDINGS: No lines and tubes are seen. Cardiomegaly is noted. Multifocal airspace opacities are seen. Likely small bilateral pleural effusions are seen. IMPRESSION: 1. Multifocal airspace opacities favored to represent multifocal pneumonia with or without superimposed aspiration/atelectasis. 2. Likely small bilateral pleural effusions are seen. ACT 112: Negative or not required by law. Electronically signed by: Moi Ring M.D. 03/03/2022 10:13 AM Chest X-Ray 03/04/22 07:00 XR chest 1V portable CLINICAL HISTORY: Respiratory failure. COMPARISON STUDY: Chest radiograph March 03, 2022. Chest CT July 10, 2021. FINDINGS: Tip of endotracheal tube is partially obscured on this exam but approximately 2.3 cm above the misti. There is no pneumothorax. Diffuse interstitial thickening and bilateral opacities have improved. There are suspected small bilateral pleural effusions. Cardiomegaly is unchanged. Tip of nasogastric tube projects over the body of the stomach. Left subclavian central line is in place. IMPRESSION: 1. Tip of endotracheal tube approximately 2.3 cm above the misti. 2. Improvement in interstitial thickening and bilateral airspace opacities. ACT 112: Negative or not required by law. Electronically signed by: Kush Rueda M.D. 03/04/2022 6:57 AM I & O Totals 24 Hours 03/03/22 03/04/22 03/05/22 07:59 06:59 06:59 Intake Total 200 / 200 Output Total Balance 200 / 200 Cumulative 03/03/22 03:31 thru 03/04/22 07:44 Intake Total 3368.895 Output Total 5525 Balance -2156.105 RT Ventilator Mngmt (Last Documented) Ventilator Ordered Settings Ventilator Support Mode CPAP 03/04/22 07:48 Respiratory Rate 23 03/04/22 07:48 Ventilator Tidal Volume 330 03/03/22 12:00 Setting Minute Ventilation 9.9 03/04/22 07:48 Ventilator Positive Pressure 5 03/04/22 07:48 Support Setting Positive End Expiratory 10 03/04/22 07:48 Pressure Fraction of Inspired Oxygen 40 03/04/22 07:48 Machine Comment Pt's spo2 was 96% on 50% so I 03/04/22 00:05 decreased her to 40% Ventilator - PT Measurements Respiratory Rate 23 Exhaled Tidal Volume 518 Minute Ventilation 9.9 Peak Inspiratory Airway 16 Pressure Plateau Pressure 33.6 Respiratory Cycle Inspiratory: 1:1.3 Expiratory Ratio Inspiratory Phase Time 0.80 End-Tidal CO2 36 Static Lung Compliance 20.86 Dynamic Lung Compliance 86.33 Normal Static Lung Compliance 49.00 Patient Measurements Comment Pt. started coughing and her respiratory rate was in the high 30's after being sx'd. Coding Level of Care Code Critical Care 1st 30-74 mins Diagnoses Tricuspid valve mass I07.8 Severe tricuspid regurgitation I07.1 Aortic stenosis I35.0 Acute systolic (congestive) heart failure I50.[address] scan, chest R93.89 Acute respiratory failure with hypoxia J96.01
[2022-03-04] MEDS ORDERED: VANCOMYCIN HCL 2,000 MG in SODIUM CHLORIDE 0.9% 500 ML IV ONE (09:30)
[2022-03-04] MEDS ORDERED: FUROSEMIDE INJ 20 MG/2 ML VIAL IV ONE (09:54)
[2022-03-04] MEDS: LANTUS PER UNIT CHARGE SQ SCH (10:13)
[2022-03-04] MEDS: TOPIRAMATE 25 MG TAB PO SCH ×2 (10:15→20:56)
[2022-03-04] MEDS: ESCITALOPRAM OXALATE 20 MG TAB PO SCH (10:15)
[2022-03-04] MEDS: ASPIRIN 81 MG CHEW PO SCH (10:15)
[2022-03-04] MEDS: ATORVASTATIN 40 MG TAB PO SCH (10:16)
[2022-03-04] MEDS: FAMOTIDINE 20 MG TAB PO SCH ×2 (10:16→20:56)
[2022-03-04] MEDS: CLOPIDOGREL BISULFATE 75 MG TAB PO SCH (10:16)
[2022-03-04] MEDS: DOXYCYCLINE HYCLATE 100 MG CAP PO SCH (10:17)
[2022-03-04] MEDS: GABAPENTIN 250 MG/5 ML 470 ML BTL NG SCH ×3 (10:21→20:55)
[2022-03-04] MEDS: cefTRIAXone SODIUM 2,000 MG in DEXTROSE 5% 50 ML IV SCH (10:21)
[2022-03-04] MEDS: PEPTAMEN INTENSE VHP 1.0 CAL 1,000 ML BAG OG SCH (11:33)
[2022-03-04] MEDS: TUBE FEEDING WATER FLUSH OG SCH ×3 (11:33→17:35)
--- NOTE | 2022-03-04 13:34 | Hospitalist Progress Note ---
Date of Service March 04, 2022 Assessment & Plan (1) Acute respiratory failure with hypoxia: Plan: Mechanical ventilation support Present on admission with worsening SOB, congestion and productive cough CXR showed cardiomegaly. Multifocal airspace opacities compatible pneumonia. received IV solumedrol and meropenem on admission Currently sedated and intubated on vent support Vent management as per support teacher IV doxycycline discontinued Currently on IV ceftriaxone and Vancomycin Sepsis Met sepsis criteria on admission with tachycardia, leukocytosis, elevate RR WBC 31.9 K, now trending to 23k lactic acid and procalcitonin elevated Blood cx on 03/03 no growth Blood cx repeat today Currently on pressors Continue monitor Acute systolic CHF exacerbation BNP 516 on admission Received IV lasix ECHO showed severely reduced LV systolic function with severe global hypokinesis with EF 30-35% cardiology on board Continue Monitor I/O Tricuspid valve mass Severe tricuspid regurgitation Given her newly discovered tricuspid annular lesion and severe tricuspid regurgitation seen on ECHO dough molder believe the patient 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 there is not appear to be any abscess tract formation aroun d the annulus, no clear indication for urgent surgery Blood cx on 03/03 no growth Currently on broad spectrum abx with vanco and rocephin ID consult pending Elevated troponin Mostly demand ischemia due to acute respiratory failure troponin on admisison 45.4 then increased to 91.7 Cardiology on board ECHO showed ECHO showed severely reduced LV systolic function with severe global hypokinesis with EF 30-35% Continue aspirin, plavix and statin Metoprolol discontinued due to Low BP Continue monitor closely AJIT Creatinine 1.5 on admission Creatinine 1.2 today Continue to avoid nephrotoxic agents Continue monitor BMP Hyponatremia Na 127 today Continue monitor BMP DVT px on heparin subq Code status FULL code Admission and Anticipated Discharge Date Admission Date: March 03, 2022 Subjective Pt was seen and examined for respiratory failure Sedated and intubated on mechanical vent support Review of Systems Review of Systems: All systems reviewed & are unremarkable except as noted in Subjective Physical Exam Physical Exam: General- sedated Head- atraumatic Eyes- PERRL ENT- Intubated Neck- supple, no JVD Lungs- Mechanical ventilation support, no wheezing Heart- regular rhythm; +systolic murmur Abdomen- normal bowel sounds, soft, nontender Extremities- no calf tenderness Neuro- sedated Skin- warm & dry, No Osler's nodes or Janeway lesions identified Results & Data Results & Data ([facility]) Vital Signs (Past 12 Hours) Vital Signs Temp Pulse Pulse Resp BP Pulse Ox O2 Del Method 03/04/22 13:00 37.3 C 113 H 26 H 98 03/04/22 13:00 111/64 03/04/22 12:00 37.2 C 110 H 22 98 03/04/22 12:00 121/70 03/04/22 11:00 37.1 C 105 H 19 97 03/04/22 11:00 105/60 03/04/22 10:00 37.0 C 97 H 22 98 03/04/22 10:00 98/66 L 03/04/22 09:00 37.1 C 94 H 20 96 03/04/22 09:00 113/75 03/04/22 08:00 37.2 C 90 20 97 03/04/22 08:00 130/83 03/04/22 12:00 03/04/22 08:00 03/04/22 08:00 Mechanical Vent 03/04/22 12:24 Mechanical Vent 03/04/22 11:01 92 H 30 H 95 03/04/22 11:00 92 H 30 H 95 Mechanical Vent 03/04/22 07:48 93 H 23 95 03/04/22 07:48 26 H 95 Mechanical Vent 03/04/22 07:00 37.2 C 81 21 95 03/04/22 07:00 127/66 03/04/22 04:00 37.3 C 87 20 90 03/04/22 04:00 102/71 03/04/22 04:00 03/04/22 04:00 92 H 115/61 03/04/22 03:00 37.4 C 88 21 92 03/04/22 03:00 113/73 03/04/22 02:00 37.4 C 91 H 20 90 03/04/22 03:26 96 H 19 94 FiO2 03/04/22 13:00 03/04/22 13:00 03/04/22 12:00 03/04/22 12:00 03/04/22 11:00 03/04/22 11:00 03/04/22 10:00 03/04/22 10:00 03/04/22 09:00 03/04/22 09:00 03/04/22 08:00 03/04/22 08:00 03/04/22 12:00 50 03/04/22 08:00 50 03/04/22 08:00 50 03/04/22 12:24 03/04/22 11:01 50 03/04/22 11:00 50 03/04/22 07:48 40 03/04/22 07:48 50 03/04/22 07:00 03/04/22 07:00 03/04/22 04:00 03/04/22 04:00 03/04/22 04:00 40 03/04/22 04:00 03/04/22 03:00 03/04/22 03:00 03/04/22 02:00 03/04/22 03:26 40
--- NOTE | 2022-03-04 14:11 | Cardiology Progress Note ---
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 Blood cultures have been unremarkable so far. May consider performing STEVEN to further evaluate tricuspid valve mass should blood cultures come back negative Luckily, there is not appear to be any abscess tract formation around the annulus, no clear indication for urgent surgery Patient has been started on broad-spectrum antibiotic coverage and will obviously defer to the primary team and infectious disease the choice of agents Her LV systolic function is now significantly reduced as well from baseline. Without objective finding of active ischemia would suspect this is due to catecholamine surge in the setting of significant infection, although, myocarditis cannot be ruled out at this point. Likely though, the patient is hemodynamically stable Chest x-ray reported as likely multifocal pneumonia, obviously will defer to critical care team Unfortunately, other than antibiotic coverage and supportive care I do not see any further treatment options from a cardiac standpoint. Should the patient become hemodynamically unstable I would suggest transfer to a tertiary care facility with ECMO capabilities should the patient's family wish to pursue aggressive measures We will continue to follow Admission and Anticipated Discharge Date Admission Date: March 03, 2022 Subjective Patient seen and examined. Chart reviewed. Telemetry reviewed. Discussed with nursing. Patient remains intubated and sedated but no longer on vasopressor support. Review of Systems Review of Systems: Unobtainable due to endotracheal tube Physical Exam Physical Exam: General: Intubated and sedated. No acute distress. HEENT: Normocephalic, atraumatic. Pupils equal, round and reactive to light and accommodation. Extraocular muscles are intact. Anicteric sclera. Moist mucous membranes. Neck: No JVD. No bruit. Cardiovascular: Regular. Positive S-4. Normal S-1 and S-2. No S-3. 3/6 holosystolic ejection murmur, 5th intercostal space, mid-clavicular line without radiation. No rubs. Pulmonary: Clear to auscultation bilaterally. No rales, rhonchi, or wheezing. Abdomen: Bowel sounds x 4, soft. No rebound, guarding or tenderness. No organomegaly. Extremities: No clubbing, cyanosis or edema. +2 pedal pulses bilaterally. Skin: Warm and dry. Nonspecific lower extremity skin changes. No visible track sparks. No Osler's nodes or Janeway lesions identified Results & Data ([facility]) Vital Signs (Past 12 Hours) Vital Signs Temp Pulse Pulse Resp BP Pulse Ox O2 Del Method 03/04/22 13:00 37.3 C 113 H 26 H 98 03/04/22 13:00 111/64 03/04/22 12:00 37.2 C 110 H 22 98 03/04/22 12:00 121/70 03/04/22 11:00 37.1 C 105 H 19 97 03/04/22 11:00 105/60 03/04/22 10:00 37.0 C 97 H 22 98 03/04/22 10:00 98/66 L 03/04/22 09:00 37.1 C 94 H 20 96 03/04/22 09:00 113/75 03/04/22 08:00 37.2 C 90 20 97 03/04/22 08:00 130/83 03/04/22 12:00 03/04/22 08:00 03/04/22 08:00 Mechanical Vent 03/04/22 12:24 Mechanical Vent 03/04/22 11:01 92 H 30 H 95 03/04/22 11:00 92 H 30 H 95 Mechanical Vent 03/04/22 07:48 93 H 23 95 03/04/22 07:48 26 H 95 Mechanical Vent 03/04/22 07:00 37.2 C 81 21 95 03/04/22 07:00 127/66 03/04/22 04:00 37.3 C 87 20 90 03/04/22 04:00 102/71 03/04/22 04:00 03/04/22 04:00 92 H 115/61 03/04/22 03:00 37.4 C 88 21 92 03/04/22 03:00 113/73 03/04/22 03:26 96 H 19 94 FiO2 03/04/22 13:00 03/04/22 13:00 03/04/22 12:00 03/04/22 12:00 03/04/22 11:00 03/04/22 11:00 03/04/22 10:00 03/04/22 10:00 03/04/22 09:00 03/04/22 09:00 03/04/22 08:00 03/04/22 08:00 03/04/22 12:00 50 03/04/22 08:00 50 03/04/22 08:00 50 03/04/22 12:24 03/04/22 11:01 50 03/04/22 11:00 50 03/04/22 07:48 40 03/04/22 07:48 50 03/04/22 07:00 03/04/22 07:00 03/04/22 04:00 03/04/22 04:00 03/04/22 04:00 40 03/04/22 04:00 03/04/22 03:00 03/04/22 03:00 03/04/22 03:26 40 (1) Diabetes mellitus, type 2 Diabetes mellitus complication status: with unspecified complications Diabetes mellitus assistant terminal manager insulin use: without assistant terminal manager use Qualified Code(s): E11.8 - Type 2 diabetes mellitus with unspecified complications
--- NOTE | 2022-03-04 14:27 | Pharmacy Report ---
Pharmacy PK ABX Note - Date of Service March 04, 2022 - Assessment and Plan Assessment 42 year old F receiving vancomycin and ceftriaxone for treatment of tricuspid valve endocarditis. Blood cultures negative to date, sputum culture (+) Staph spp (MRSA nasal negative). Initially presented with an AJIT (SCr 1.51), which is resolving. Day #1 of antimicrobial therapy. Plan Vancomycin * Loading dose: 2000 mg IV x 1 * Maintenance dose: 1000 mg IV every 12 hours * Regimen is predicted to achieve target AUC/YENNI of ~600 mg/L.hr * Random level ordered for 03/05 afternoon given change in renal function to guide further dosing Pharmacy will continue to follow and will adjust dose/frequency as necessary. Thank you. Pharmacy has transitioned to AUC monitoring for vancomycin. AUC/YENNI is the preferred PK/PD target and is associated with decreased risk of nephrotoxicity compared to traditional trough targets.
[2022-03-04 15:04] LABS: Amphetamines+Metham, Urine Neg (Neg); Barbiturates, Urine Neg (Neg); Benzodiazepine, Urine Pos (Neg); Cocaine, Urine Neg (Neg); MDMA (Ecstacy), Urine Neg (Neg); Methadone, Urine Neg (Neg); Opiate, Urine Neg (Neg); Phencyclidine, Urine Neg (Neg)
[2022-03-04] MEDS: VANCOMYCIN HCL 1,000 MG in SODIUM CHLORIDE 0.9% 250 ML IV SCH (17:35)
[2022-03-05] MEDS: TUBE FEEDING WATER FLUSH OG SCH ×7 (00:12→21:16)
[2022-03-05] MEDS: propofoL 1,000 MG/100 ML VIAL IV SCH ×14 (00:12→22:59)
[2022-03-05 05:18] LABS: iSTAT Art Bld Gas pCO2 Correct 54 mmHg (35-46); iSTAT Art Bld Gas pH Corrected 7.314 (7.35-7.45); iSTAT Arterial Blood Gas HCO3 27 meg/L (19-24); iSTAT Arterial Blood Gas pCO2 53 mmHg (35-46); iSTAT Arterial Blood Gas pH 7.32 (7.35-7.45); iSTAT Arterial Blood Gas pO2 94 mmHg (80-95); iSTAT Arterial Blood Gas pO2 C 96; iSTAT Carbon Dioxide 29 mmol/L (24-31); iSTAT FiO2 40 %; iSTAT Hematocrit 24 % (37-47); iSTAT Hemoglobin 8.2 g/dl (12.0-16.0); iSTAT Site Art Line; iSTAT Sodium 131 mmol/L (135-144)
[2022-03-05 05:23] LABS: Basophils # (auto) 0.05 K/uL (0-0.2); Basophils % (auto) 0.4 %; Eosinophils # (auto) 0.42 K/uL (0-0.50); Eosinophils % (auto) 3.6 %; Hematocrit (blood only) 24.1 % (34.1-44.9); Hemoglobin 7.8 g/dl (12.0-16.0); Immature Granulocytes # (auto) 0.05 K/uL (0.00-0.02); Immature Granulocytes % (auto) 0.4 %; Lymphocytes % (auto) 25.2 %; Mean Corpuscular Hemoglobin 27.5 pg (25.0-34.0); Mean Corpuscular Hgb Conc 32.4 g/dL (32.0-36.0); Mean Corpuscular Volume 84.9 fL (80.0-100.0); Mean Platelet Volume 9.4 fL (9.4-12.3); Monocytes # (auto) 0.48 K/uL (0.24-0.82); Monocytes % (auto) 4.2 %; Neutrophils # (auto) 7.61 K/uL (1.4-6.5); Neutrophils % (auto) 66.2 %; Platelet Count 316 K/uL (130-400); RDW Coefficient of Variation 17.4 % (11.5-14.5); RDW Standard Deviation 53.8 fL (36.4-46.3); Red Blood Count 2.84 M/uL (3.93-5.22); White Blood Count 11.51 K/ul (4.8-10.8)
[2022-03-05] MEDS: fentaNYL BOLUS from BAG IV PRN ×2 (05:27→12:15)
[2022-03-05] MEDS: PROPOFOL BOLUS FROM BAG IV PRN ×2 (05:28→12:00)
[2022-03-05 05:48] LABS: Albumin Globulin Ratio 1.2 (0.9-2); Albumin Level 3.4 gm/dl (3.4-5.0); BUN Creatinine Ratio 15.3 (10-20); Bilirubin,Total 0.5 mg/dl (0.2-1.0); Calcium 8.4 mg/dl (8.5-10.1); Creatinine Clr Calc Pharmacy 69.8 ml/min; Est GFR (African American) 69.9 ml/min; Est GFR (Non-African American) 60.3 ml/min; Globulin 2.9 gm/dl (2.5-4.0); Magnesium 2.2 mg/dl (1.7-2.4); Phosphorus 4.1 mg/dl (2.5-4.9); Total Protein 6.3 gm/dl (6.0-8.3)
[2022-03-05] MEDS: fentaNYL citrate 2,500 MCG/250 ML BAG IV SCH ×8 (05:58→18:17)
[2022-03-05] MEDS: VANCOMYCIN HCL 1,000 MG in SODIUM CHLORIDE 0.9% 250 ML IV SCH ×2 (06:11→18:39)
[2022-03-05] MEDS: HEPARIN SOD 5,000 UNIT/0.5 ML VIAL SQ SCH ×3 (06:12→21:15)
[2022-03-05] MEDS: PHENYLEPHRINE HCL 20 MG in DEXTROSE 5% 500 ML IV SCH ×3 (06:13→20:13)
[2022-03-05 06:27] LABS: RBC Morphology Unremarkable
[2022-03-05] MEDS: ICU ELECTROLYTE REPLACEMENT PROTOCOL SCH ×2 (06:29→17:18)
[2022-03-05] MEDS: IPRATROPIUM BROMIDE NEB SOLN 0.02% 2.5 ML VIAL INH SCH ×4 (07:09→19:07)
[2022-03-05] MEDS: LEVALBUTEROL 1.25MG/0.5ML NEB INH SCH ×4 (07:09→19:07)
[2022-03-05] MEDS ORDERED: INSULIN ASPART PER UNIT SC SCH (07:30)
[2022-03-05] MEDS: INSULIN ASPART PER UNIT SC SCH ×5 (07:31→23:40)
[2022-03-05] MEDS: CLOPIDOGREL BISULFATE 75 MG TAB PO SCH (08:08)
[2022-03-05] MEDS: ESCITALOPRAM OXALATE 20 MG TAB PO SCH (08:09)
[2022-03-05] MEDS: FAMOTIDINE 20 MG TAB PO SCH ×2 (08:09→20:17)
[2022-03-05] MEDS: ATORVASTATIN 40 MG TAB PO SCH (08:09)
[2022-03-05] MEDS: TOPIRAMATE 25 MG TAB PO SCH ×2 (08:09→20:17)
[2022-03-05] MEDS: ASPIRIN 81 MG CHEW PO SCH (08:09)
[2022-03-05] MEDS: cefTRIAXone SODIUM 2,000 MG in DEXTROSE 5% 50 ML IV SCH (08:13)
[2022-03-05] MEDS: GABAPENTIN 250 MG/5 ML 470 ML BTL NG SCH ×2 (08:15→08:16)
--- NOTE | 2022-03-05 08:40 | Critical Care Progress Note ---
Date of Service March 05, 2022 Assessment & Plan (1) Tricuspid valve mass: (2) Severe tricuspid regurgitation: (3) Aortic stenosis: (4) Acute systolic (congestive) heart failure: (5) Abnormal CT scan, chest: (6) Acute respiratory failure with hypoxia: Plan Impression: 42-year-old female with history of diabetes, opiate abuse, and aortic stenosis admitted with diffuse pulmonary infiltrates and hypoxemic respiratory failure. She was intubated shortly after arrival to the ICU. Recommendations: 1. Neurologic: Continue sedation with propofol and fentanyl until the patient's ventilatory parameters are consistent with ventilator liberation. She has a history of opiate abuse and is on naloxone buprenorphine in the outpatient setting which is currently being held. Questionable prior history of seizure disorder and will continue Keppra, Topamax. Continue Celexa. Hold gabapentin. 2. Cardiovascular: Mobile tricuspid 10 mm lesion concerning for vegetation however cultures are negative to date. Her hypotension is now resolved. Will await final cultures. May consider HACEK organisms if cultures are negative. Repeat blood cultures today. EF significantly reduced compared to prior echocardiogram. Known aortic stenosis which appears stable. Diuresis as tolerated. Cardiology on board. Continue clopidogrel, aspirin and atorvastatin. 3. Pulmonary: Acute hypoxemic respiratory failure secondary to what appears to be pulmonary edema. Respiratory cultures are also positive for Staphylococcus with speciation pending. Continue to wean FiO2 and PEEP as tolerated. Current settings are prohibitive for ventilator liberation. Oxygenation is improved over the last 24 hours. 4. 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 Continue vancomycin and ceftriaxone. Staph species from the sputum. Blood culture negative to date. 5. GI: Dietary consultation for initiation of tube feeding. Continue H2 vijay. 6. Renal: ICU electrolyte replacement protocol. Mild hyponatremia slightly improved today. Continue to follow. Serum creatinine is improving. Acid-base status acceptable and electrolytes acceptable. 7. Heme-onc: Mild anemia. No indication for transfusion currently. Continue to trend. Hemolysis is a consideration given the patient's valvular disease. 8. Endocrine: Glycemic control per protocol. CRITICAL CARE TIME - I have personally spent 44 minutes of critical care time in the direct management of this patient. This is a life/limb threatening event. This includes time spent evaluating patient, direct bedside care, chart review, placing orders, interpretation of diagnostic studies, discussion with consultants, patient, and family members, as well as other required patient management activities. This time is exclusive of all separately billable procedures, and teaching time and separate from and in addition to any other critical care service time. Admission and Anticipated Discharge Date Admission Date: March 03, 2022 Subjective Patient seen and examined. Hemodynamically stable at present. Minimal vent settings at this time. Minimally responsive to commands while on sedation. Review of Systems Review of Systems: Unobtainable due to endotracheal tube Physical Exam Constitutional: WD/WN, vitals as above Neck: trachea midline, no thyromegaly Respiratory: normal respiratory effort, lungs clear to auscultation Cardiovascular: RRR, no murmur, no edema Gastrointestinal (Abdomen): normal bowel sounds, soft, nontender, no hepatosplenomegaly Musculoskeletal: Extremities: extremities normal to inspection Skin: no rashes, warm and dry Neurologic: Nonfocal exam Lymphatic: no cervical lymphadenopathy Results & Data Results & Data ([facility]) Vital Signs (Past 12 Hours) Vital Signs Temp Pulse Pulse Resp BP Pulse Ox O2 Del Method 03/05/22 07:10 85 29 H 99 03/05/22 07:09 85 29 H 99 Mechanical Vent 03/05/22 06:00 37.0 C 87 20 97 03/05/22 06:00 111/61 03/05/22 05:02 112/66 03/05/22 05:02 37.3 C 99 H 23 97 03/05/22 05:38 24 03/05/22 04:00 37.3 C 89 19 95 03/05/22 04:00 110/56 L 03/05/22 03:00 37.3 C 91 H 20 96 03/05/22 03:00 104/69 03/05/22 04:00 03/05/22 04:00 88 111/57 L 03/05/22 03:22 88 19 98 03/05/22 02:00 37.4 C 88 21 97 03/05/22 02:00 110/53 L 03/05/22 01:00 37.4 C 94 H 19 95 03/05/22 01:00 109/60 03/05/22 00:00 37.5 C 97 H 19 98 03/05/22 00:00 109/63 03/04/22 23:59 103 H 21 100 03/04/22 23:00 37.4 C 95 H 18 98 03/04/22 23:00 110/59 L 11/06/22 22:00 37.4 C 100 H 16 98 03/04/22 22:00 114/60 03/05/22 00:00 03/05/22 00:00 97 H 110/55 L 03/05/22 00:00 96 H 03/04/22 21:00 37.3 C 103 H 15 99 03/04/22 21:00 113/57 L FiO2 03/05/22 07:10 40 03/05/22 07:09 40 03/05/22 06:00 03/05/22 06:00 03/05/22 05:02 03/05/22 05:02 03/05/22 05:38 40 03/05/22 04:00 03/05/22 04:00 03/05/22 03:00 03/05/22 03:00 03/05/22 04:00 40 03/05/22 04:00 03/05/22 03:22 40 03/05/22 02:00 03/05/22 02:00 03/05/22 01:00 03/05/22 01:00 03/05/22 00:00 03/05/22 00:00 03/04/22 23:59 50 03/04/22 23:00 03/04/22 23:00 03/04/22 22:00 03/04/22 22:00 03/05/22 00:00 50 03/05/22 00:00 03/05/22 00:00 03/04/22 21:00 03/04/22 21:00 Coding Level of Care Code Critical Care 1st 30-74 mins Diagnoses Tricuspid valve mass I07.8 Severe tricuspid regurgitation I07.1 Aortic stenosis I35.0 Acute systolic (congestive) heart failure I50.[address] scan, chest R93.89 Acute respiratory failure with hypoxia J96.01 Time Spent (min) 44
[2022-03-05] MEDS ORDERED: PHARMACY GLYCEMIC MGMT CONSULT PRN (09:43)
[2022-03-05] MEDS: LANTUS PER UNIT CHARGE SQ SCH (10:42)
--- NOTE | 2022-03-05 11:24 | XRay Report ---
XR chest 1V portable CLINICAL HISTORY: Resp failure TECHNIQUE: Single frontal radiograph of the chest was obtained. Comparison: Comparison is made to chest radiograph 03/04/2022 FINDINGS: Lines and tubes are stable. The cardiomediastinal silhouette is stable. Multifocal airspace opacities are seen, stable to mildly improved from prior exam. No evidence of pleural effusion or pneumothorax . IMPRESSION: 1. Multifocal airspace opacities may represent atelectasis, pneumonia, and/or aspiration. These are stable to mildly improved from prior exam. 2. Lines and tubes are stable. ACT 112: Negative or not required by law. Electronically signed by: Moi Ring M.D. 03/05/2022 11:23 AM
--- NOTE | 2022-03-05 13:09 | Cardiology Progress Note ---
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 Blood cultures have been unremarkable so far. May consider performing STEVEN to further evaluate tricuspid valve mass should blood cultures come back negative Luckily, there is not appear to be any abscess tract formation around the annulus, no clear indication for urgent surgery Patient has been started on broad-spectrum antibiotic coverage and will obviously defer to the primary team and infectious disease the choice of agents Her LV systolic function is now significantly reduced as well from baseline. Without objective finding of active ischemia would suspect this is due to catecholamine surge in the setting of significant infection, although, myocarditis cannot be ruled out at this point. Likely though, the patient is hemodynamically stable Chest x-ray reported as likely multifocal pneumonia, obviously will defer to critical care team Unfortunately, other than antibiotic coverage and supportive care I do not see any further treatment options from a cardiac standpoint. Should the patient become hemodynamically unstable I would suggest transfer to a tertiary care facility with ECMO capabilities should the patient's family wish to pursue aggressive measures We will continue to follow Admission and Anticipated Discharge Date Admission Date: March 03, 2022 Subjective Pt seen and examined. Chart reviewed. Telemetry reviewed. Review of Systems Review of Systems: Unobtainable due to endotracheal tube Physical Exam Physical Exam: General: Intubated and sedated. No acute distress. HEENT: Normocephalic, atraumatic. Pupils equal, round and reactive to light and accommodation. Extraocular muscles are intact. Anicteric sclera. Moist mucous membranes. Neck: No JVD. No bruit. Cardiovascular: Regular. Positive S-4. Normal S-1 and S-2. No S-3. 3/6 holosystolic ejection murmur, 5th intercostal space, mid-clavicular line without radiation. No rubs. Pulmonary: Clear to auscultation bilaterally. No rales, rhonchi, or wheezing. Abdomen: Bowel sounds x 4, soft. No rebound, guarding or tenderness. No organomegaly. Extremities: No clubbing, cyanosis or edema. +2 pedal pulses bilaterally. Skin: Warm and dry. Nonspecific lower extremity skin changes. No visible track sparks. No Osler's nodes or Janeway lesions identified Results & Data ([facility]) Vital Signs (Past 12 Hours) Vital Signs Temp Pulse Pulse Resp BP Pulse Ox O2 Del Method 03/05/22 12:24 96 H 26 H 97 03/05/22 10:29 85 26 H 98 03/05/22 10:28 85 26 H 99 Mechanical Vent 03/05/22 08:00 84 03/05/22 07:10 85 29 H 99 03/05/22 07:09 85 29 H 99 Mechanical Vent 03/05/22 06:00 37.0 C 87 20 97 03/05/22 06:00 111/61 03/05/22 05:02 112/66 03/05/22 05:02 37.3 C 99 H 23 97 03/05/22 05:38 24 03/05/22 04:00 37.3 C 89 19 95 03/05/22 04:00 110/56 L 03/05/22 03:00 37.3 C 91 H 20 96 03/05/22 03:00 104/69 03/05/22 04:00 03/05/22 04:00 88 111/57 L 03/05/22 03:22 88 19 98 03/05/22 02:00 37.4 C 88 21 97 03/05/22 02:00 110/53 L FiO2 03/05/22 12:24 40 03/05/22 10:29 40 03/05/22 10:28 40 03/05/22 08:00 03/05/22 07:10 40 03/05/22 07:09 40 03/05/22 06:00 03/05/22 06:00 03/05/22 05:02 03/05/22 05:02 03/05/22 05:38 40 03/05/22 04:00 03/05/22 04:00 03/05/22 03:00 03/05/22 03:00 03/05/22 04:00 40 03/05/22 04:00 03/05/22 03:22 40 03/05/22 02:00 03/05/22 02:00 (1) Diabetes mellitus, type 2 Diabetes mellitus complication status: with unspecified complications Diabetes mellitus termite exterminator helper insulin use: without termite exterminator helper use Qualified Code(s): E11.8 - Type 2 diabetes mellitus with unspecified complications
--- NOTE | 2022-03-05 13:34 | Pharmacy Report ---
Pharmacy PK ABX Note - Date of Service March 05, 2022 - Assessment and Plan Assessment 42 year old F receiving vancomycin and ceftriaxone for treatment of tricuspid valve endocarditis. Blood cultures negative to date, sputum culture (+) Staph spp (MRSA nasal negative). Initially presented with an AJIT (SCr 1.51), which is resolving. SCr down to 1.11, baseline ~0.8. Day #2 of antimicrobial therapy. Plan Vancomycin * Loading dose: 2000 mg IV x 1 * Maintenance dose: 1000 mg IV every 12 hours * Regimen is predicted to achieve target AUC/YENNI of ~600 mg/L.hr * Random level ordered for 03/06 at noon given change in renal function to guide further dosing Pharmacy will continue to follow and will adjust dose/frequency as necessary. Thank you. Pharmacy has transitioned to AUC monitoring for vancomycin. AUC/YENNI is the preferred PK/PD target and is associated with decreased risk of nephrotoxicity compared to traditional trough targets.
--- NOTE | 2022-03-05 14:27 | Pharmacy Report ---
Pharmacy Glycemic Short Note 2 - Date of Service March 05, 2022 - Glycemic Short BSG Results (Last 24 hours): 03/04/22 03/04/22 03/05/22 17:33 21:00 04:54 Glucose 87 POC Glucose 96 103 H OUTPATIENT ANTIDIABETIC REGIMEN: * Liraglutide 1.2 mg SQ daily * metformin 1 gm PO BID * HbA1C ordered ASSESSMENT: * Ms Gonzalez is a 42 y/o F with a PMH of T2DM who presents with SOB. * Patient is currently intubated on phenylephrine. Tube feeds have been initiated. * Patient originally on Lantus 10 units daily. D/c'ed this AM as patient's BSGs have been trending downwards. * Novolog weight-based stress of 2. PLAN FOR INPATIENT GLYCEMIC CONTROL: * Hold outpatient oral diabetes medications * Basal insulin * HOLD * Bolus insulin * NovoLog per scale ACHS or Q6hrs while NPO * Goal Range: Low 110 mg/dL - High 140 mg/dL * Correction Factor: 30 mg/dL/unit * Nutritional / Prandial insulin per carb ratio of 1 unit per 10 grams CHO consumed
[2022-03-05 14:37] LABS: iSTAT Art Bld Gas pCO2 Correct 44 mmHg (35-46); iSTAT Art Bld Gas pH Corrected 7.373 (7.35-7.45); iSTAT Arterial Blood Gas HCO3 26 meg/L (19-24); iSTAT Arterial Blood Gas pCO2 44 mmHg (35-46); iSTAT Arterial Blood Gas pH 7.37 (7.35-7.45); iSTAT Arterial Blood Gas pO2 108 mmHg (80-95); iSTAT Arterial Blood Gas pO2 C 107; iSTAT Carbon Dioxide 27 mmol/L (24-31); iSTAT Hematocrit 21 % (37-47); iSTAT Hemoglobin 7.1 g/dl (12.0-16.0); iSTAT Potassium 3.4 mmol/L (3.3-5.0); iSTAT Site Art Line; iSTAT Sodium 132 mmol/L (135-144)
--- NOTE | 2022-03-05 16:35 | Hospitalist Progress Note ---
Date of Service March 05, 2022 Assessment & Plan (1) Acute respiratory failure with hypoxia: Plan: Mechanical ventilation support Present on admission with worsening SOB, congestion and productive cough CXR showed cardiomegaly. Multifocal airspace opacities compatible pneumonia. received IV solumedrol and meropenem on admission Currently sedated and intubated on vent support Sputum cx grew staph intermedius Vent management as per information writer IV doxycycline discontinued Currently on IV ceftriaxone and Vancomycin Sepsis Met sepsis criteria on admission with tachycardia, leukocytosis, elevate RR WBC 31.9 K, now trending to 23k lactic acid and procalcitonin elevated Blood cx on 03/03 and 03/04 no growth ID consult pending Currently on pressors Continue monitor Acute systolic CHF exacerbation BNP 516 on admission Received IV lasix ECHO showed severely reduced LV systolic function with severe global hypokinesis with EF 30-35% cardiology on board Continue Monitor I/O Tricuspid valve mass Severe tricuspid regurgitation Given her newly discovered tricuspid annular lesion and severe tricuspid regurgitation seen on ECHO route returner believe the patient 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 there is not appear to be any abscess tract formation around the annulus, no clear indication for urgent surgery Blood cx on 03/03 and 03/04 no growth Currently on broad spectrum abx with IV vanco and rocephin ID consult pending Elevated troponin Mostly demand ischemia due to acute respiratory failure troponin on admisison 45.4 then increased to 91.7 Cardiology on board ECHO showed ECHO showed severely reduced LV systolic function with severe global hypokinesis with EF 30-35% Continue aspirin, plavix and statin Metoprolol discontinued due to Low BP Continue monitor closely AJIT Creatinine 1.5 on admission Creatinine 1.1 today Continue to avoid nephrotoxic agents Continue monitor BMP Hyponatremia Na 132 today Continue monitor BMP DVT px on heparin subq Code status FULL code Admission and Anticipated Discharge Date Admission Date: March 03, 2022 Subjective Pt was seen and examined for respiratory failure Sedated and intubated on mechanical vent support Review of Systems Review of Systems: All systems reviewed & are unremarkable except as noted in Subjective Physical Exam Physical Exam: General- sedated Head- atraumatic Eyes- PERRL ENT- Intubated Neck- supple, no JVD Lungs- Mechanical ventilation support, no wheezing Heart- regular rhythm; +systolic murmur Abdomen- normal bowel sounds, soft, nontender Extremities- no calf tenderness Neuro- sedated Skin- warm & dry, No Osler's nodes or Janeway lesions identified Results & Data Results & Data ([facility]) Vital Signs (Past 12 Hours) Vital Signs Temp Pulse Pulse Resp BP Pulse Ox O2 Del Method 03/05/22 16:00 37.0 C 85 32 H 112/59 L 99 Mechanical Vent 03/05/22 12:00 37 C 03/05/22 16:00 03/05/22 16:00 85 03/05/22 15:55 Mechanical Vent 03/05/22 15:00 36.9 C 88 29 H 113/58 L 98 Mechanical Vent 03/05/22 14:00 36.9 C 94 H 28 H 113/57 L 99 03/05/22 14:32 89 33 H 98 Mechanical Vent 03/05/22 14:30 89 33 H 98 03/05/22 13:00 36.8 C 102 H 33 H 98 Mechanical Vent 03/05/22 13:00 108/60 03/05/22 12:00 37.1 C 109 H 31 H 98 03/05/22 12:00 122/64 03/05/22 11:00 37.0 C 80 22 94 03/05/22 11:00 111/60 03/05/22 10:00 37.0 C 80 21 96 03/05/22 10:00 106/66 03/05/22 09:00 37.0 C 82 23 96 03/05/22 09:00 109/64 03/05/22 08:00 37.1 C 87 21 95 Mechanical Vent 03/05/22 08:00 116/60 03/05/22 07:00 37.0 C 86 27 H 97 03/05/22 07:00 111/62 03/05/22 06:45 37.0 C 83 21 99 Mechanical Vent 03/05/22 08:00 03/05/22 12:24 96 H 26 H 97 03/05/22 10:29 85 26 H 98 03/05/22 10:28 85 26 H 99 Mechanical Vent 03/05/22 08:00 84 03/05/22 07:10 85 29 H 99 03/05/22 07:09 85 29 H 99 Mechanical Vent 03/05/22 06:00 37.0 C 87 20 97 03/05/22 06:00 111/61 03/05/22 05:02 112/66 03/05/22 05:02 37.3 C 99 H 23 97 03/05/22 05:38 24 FiO2 03/05/22 16:00 40 03/05/22 12:00 03/05/22 16:00 40 03/05/22 16:00 03/05/22 15:55 03/05/22 15:00 40 03/05/22 14:00 03/05/22 14:32 30 03/05/22 14:30 30 03/05/22 13:00 40 03/05/22 13:00 03/05/22 12:00 03/05/22 12:00 03/05/22 11:00 03/05/22 11:00 03/05/22 10:00 03/05/22 10:00 03/05/22 09:00 03/05/22 09:00 03/05/22 08:00 40 03/05/22 08:00 03/05/22 07:00 03/05/22 07:00 03/05/22 06:45 40 03/05/22 08:00 40 03/05/22 12:24 40 03/05/22 10:29 40 03/05/22 10:28 40 03/05/22 08:00 03/05/22 07:10 40 03/05/22 07:09 40 03/05/22 06:00 03/05/22 06:00 03/05/22 05:02 03/05/22 05:02 03/05/22 05:38 40
[2022-03-05] MEDS ORDERED: PIPERACILLIN/TAZOBACTAM 3.375 GM in DEXTROSE 5% 100 ML IV SCH (17:15)
[2022-03-05] MEDS ORDERED: PIPERACILLIN/TAZOBACTAM 3.375 GM in DEXTROSE 5% 100 ML IV ONE (17:30)
[2022-03-05] MEDS: PIPERACILLIN/TAZOBACTAM 4.5 GM in DEXTROSE 5% 100 ML IV ONE ×2 (18:36→18:37)
[2022-03-05] MEDS: PIPERACILLIN/TAZOBACTAM 4.5 GM in DEXTROSE 5% 100 ML IV SCH (21:15)
[2022-03-06] MEDS: PEPTAMEN INTENSE VHP 1.0 CAL 1,000 ML BAG OG SCH ×2 (02:14→23:35)
[2022-03-06] MEDS: PROPOFOL BOLUS FROM BAG IV PRN ×4 (03:20→06:36)
[2022-03-06] MEDS: propofoL 1,000 MG/100 ML VIAL IV SCH ×5 (03:40→13:53)
[2022-03-06] MEDS: fentaNYL BOLUS from BAG IV PRN ×3 (03:40→14:00)
[2022-03-06] MEDS: TUBE FEEDING WATER FLUSH OG SCH ×7 (03:54→23:46)
[2022-03-06] MEDS: INSULIN ASPART PER UNIT SC SCH ×6 (03:55→23:48)
[2022-03-06] MEDS: PHENYLEPHRINE HCL 20 MG in DEXTROSE 5% 500 ML IV SCH (03:56)
[2022-03-06 04:56] LABS: Basophils # (auto) 0.04 K/uL (0-0.2); Basophils % (auto) 0.5 %; Eosinophils # (auto) 0.42 K/uL (0-0.50); Eosinophils % (auto) 4.9 %; Hematocrit (blood only) 24.6 % (34.1-44.9); Hemoglobin 7.9 g/dl (12.0-16.0); Immature Granulocytes # (auto) 0.06 K/uL (0.00-0.02); Immature Granulocytes % (auto) 0.7 %; Lymphocytes # (auto) 2.08 K/uL (1.2-3.4); Lymphocytes % (auto) 24.3 %; Mean Corpuscular Hemoglobin 27.2 pg (25.0-34.0); Mean Corpuscular Hgb Conc 32.1 g/dL (32.0-36.0); Mean Corpuscular Volume 84.8 fL (80.0-100.0); Mean Platelet Volume 9.4 fL (9.4-12.3); Monocytes # (auto) 0.35 K/uL (0.24-0.82); Monocytes % (auto) 4.1 %; Neutrophils # (auto) 5.61 K/uL (1.4-6.5); Neutrophils % (auto) 65.5 %; Platelet Count 308 K/uL (130-400); RDW Coefficient of Variation 17.7 % (11.5-14.5); RDW Standard Deviation 54.9 fL (36.4-46.3); White Blood Count 8.56 K/ul (4.8-10.8)
[2022-03-06] MEDS: VANCOMYCIN HCL 1,000 MG in SODIUM CHLORIDE 0.9% 250 ML IV SCH ×2 (05:04→17:39)
[2022-03-06] MEDS: HEPARIN SOD 5,000 UNIT/0.5 ML VIAL SQ SCH ×3 (05:05→21:27)
[2022-03-06 05:17] LABS: RBC Morphology Unremarkable
[2022-03-06 05:21] LABS: Albumin Globulin Ratio 1.1 (0.9-2); Albumin Level 3.4 gm/dl (3.4-5.0); BUN Creatinine Ratio 14.4 (10-20); Bilirubin,Total 0.5 mg/dl (0.2-1.0); Calcium 8.6 mg/dl (8.5-10.1); Creatinine Clr Calc Pharmacy 75.9 ml/min; Est GFR (African American) 82.3 ml/min; Magnesium 2.2 mg/dl (1.7-2.4); Phosphorus 5.3 mg/dl (2.5-4.9); Potassium 4.1 mmol/L (3.5-5.1); Total Protein 6.4 gm/dl (6.0-8.3)
[2022-03-06] MEDS ORDERED: VANCOMYCIN LEVEL ONE (05:30)
[2022-03-06] MEDS: ICU ELECTROLYTE REPLACEMENT PROTOCOL SCH ×2 (05:48→17:40)
[2022-03-06] MEDS: fentaNYL citrate 2,500 MCG/250 ML BAG IV SCH ×3 (05:59→06:26)
[2022-03-06 06:06] LABS: iSTAT Allen Test Pass; iSTAT Arterial Blood Gas HCO3 23 meg/L (19-24); iSTAT Arterial Blood Gas pCO2 44 mmHg (35-46); iSTAT Arterial Blood Gas pH 7.33 (7.35-7.45); iSTAT Arterial Blood Gas pO2 99 mmHg (80-95); iSTAT Carbon Dioxide 24 mmol/L (24-31); iSTAT FiO2 40 %; iSTAT Site Art Line
[2022-03-06] MEDS: PIPERACILLIN/TAZOBACTAM 4.5 GM in DEXTROSE 5% 100 ML IV SCH ×3 (06:27→21:27)
[2022-03-06] MEDS: LEVALBUTEROL 1.25MG/0.5ML NEB INH SCH ×4 (07:01→19:55)
[2022-03-06] MEDS: IPRATROPIUM BROMIDE NEB SOLN 0.02% 2.5 ML VIAL INH SCH ×4 (07:02→19:55)
[2022-03-06] MEDS ORDERED: FUROSEMIDE INJ 20 MG/2 ML VIAL IV ONE (07:27)
[2022-03-06] MEDS: ATORVASTATIN 40 MG TAB PO SCH (08:02)
[2022-03-06] MEDS: CLOPIDOGREL BISULFATE 75 MG TAB PO SCH (08:02)
[2022-03-06] MEDS: FAMOTIDINE 20 MG TAB PO SCH ×2 (08:02→20:06)
[2022-03-06] MEDS: ESCITALOPRAM OXALATE 20 MG TAB PO SCH (08:02)
[2022-03-06] MEDS: TOPIRAMATE 25 MG TAB PO SCH ×2 (08:03→20:07)
[2022-03-06] MEDS: ASPIRIN 81 MG CHEW PO SCH (08:03)
--- NOTE | 2022-03-06 08:21 | Critical Care Progress Note ---
Date of Service March 06, 2022 Assessment & Plan (1) Tricuspid valve mass: (2) Severe tricuspid regurgitation: (3) Aortic stenosis: (4) Acute systolic (congestive) heart failure: (5) Abnormal CT scan, chest: (6) Acute respiratory failure with hypoxia: Plan Impression: 42-year-old female with history of diabetes, opiate abuse, and aortic stenosis admitted with diffuse pulmonary infiltrates and hypoxemic respiratory failure. She was intubated shortly after arrival to the ICU. Recommendations: 1. Neurologic: Continue sedation vacation. Following simple commands. Questionable prior history of seizure disorder and will continue Keppra, Topamax. Continue Celexa. Hold gabapentin. 2. Cardiovascular: Mobile tricuspid 10 mm lesion concerning for vegetation however cultures are negative to date. Her hypotension is now resolved. ID consult appreciated. Zosyn ordered. Continue vancomycin. Consider antifungal therapy. Consider referral to tertiary care center for angio VAC treatment of endocarditis. 3. Pulmonary: Acute hypoxemic respiratory failure secondary to what appears to be pulmonary edema. Respiratory cultures are also positive for Staphylococcus intermedius. Continue to wean FiO2 and PEEP as tolerated. Patient currently on SBT. Possible extubation later today. 4. 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 Continue vancomycin and Zosyn. Beta glucan ordered. 5. GI: Dietary consultation for initiation of tube feeding. Continue H2 vijay. 6. Renal: ICU electrolyte replacement protocol. No significant issues. 7. Heme-onc: Mild anemia. No indication for transfusion currently. Continue to trend. Hemolysis is a consideration given the patient's valvular disease. 8. Endocrine: Glycemic control per protocol. CRITICAL CARE TIME - I have personally spent 49 minutes of critical care time in the direct management of this patient. This is a life/limb threatening event. This includes time spent evaluating patient, direct bedside care, chart review, placing orders, interpretation of diagnostic studies, discussion with consultants, patient, and family members, as well as other required patient management activities. This time is exclusive of all separately billable procedures, and teaching time and separate from and in addition to any other critical care service time. Admission and Anticipated Discharge Date Admission Date: March 03, 2022 Subjective Patient seen and examined. Sedation has been stopped. She is following very simple commands. She is doing well on a spontaneous breathing trial. Tube feeds on hold. No hemodynamic issues. Review of Systems Review of Systems: All systems reviewed & are unremarkable except as noted in HPI & below Physical Exam Constitutional: WD/WN, vitals as above Neck: trachea midline, no thyromegaly Respiratory: normal respiratory effort, lungs clear to auscultation Cardiovascular: RRR, no murmur, no edema Gastrointestinal (Abdomen): normal bowel sounds, soft, nontender, no hepatosplenomegaly Musculoskeletal: Extremities: extremities normal to inspection Skin: no rashes, warm and dry Neurologic: Nonfocal exam Lymphatic: no cervical lymphadenopathy Results & Data Results & Data ([facility]) Vital Signs (Past 12 Hours) Vital Signs Temp Pulse Resp BP Pulse Ox O2 Del Method FiO2 03/06/22 07:00 37.0 C 91 H 21 97 03/06/22 07:00 116/66 03/06/22 06:00 36.7 C 90 31 H 96 03/06/22 06:00 112/64 03/06/22 07:33 92 H 32 H 98 40 03/06/22 05:00 84 29 H 98 03/06/22 04:00 36.7 C 77 27 H 98 03/06/22 04:00 110/64 03/06/22 03:00 36.7 C 73 34 H 99 03/06/22 03:00 107/65 03/06/22 02:00 36.7 C 75 25 H 98 03/06/22 02:00 111/63 03/06/22 04:00 40 03/06/22 04:07 84 27 H 97 40 03/06/22 01:00 36.8 C 76 33 H 98 03/06/22 01:00 113/56 L 03/06/22 00:00 36.8 C 77 29 H 99 03/06/22 00:00 112/65 03/05/22 23:00 36.9 C 85 23 98 03/05/22 23:00 114/63 03/06/22 00:19 Mechanical Vent 40 03/06/22 00:00 40 03/06/22 00:00 78 03/05/22 22:46 78 33 H 98 40 03/05/22 22:00 36.9 C 78 21 99 03/05/22 22:00 108/61 03/05/22 21:00 36.9 C 81 33 H 98 03/05/22 21:00 111/66 Coding Level of Care Code Critical Care 1st 30-74 mins Diagnoses Tricuspid valve mass I07.8 Severe tricuspid regurgitation I07.1 Aortic stenosis I35.0 Acute systolic (congestive) heart failure I50.[address] scan, chest R93.89 Acute respiratory failure with hypoxia J96.01 Time Spent (min) 49
--- NOTE | 2022-03-06 08:29 | Pharmacy Report ---
Pharmacy PK ABX Note - Date of Service March 06, 2022 - Assessment and Plan Assessment 42 year old F receiving vancomycin and zosyn for treatment of tricuspid valve endocarditis. Blood cultures negative to date, sputum culture (+) Staph intermedius, methicillin sensitive (MRSA nasal negative). Initially presented with an AJIT (SCr 1.51), which is resolving. SCr down to 1.11, baseline ~0.8. Day #3 of antimicrobial therapy. Plan Vancomycin * Trough level this AM (~10hr level) 19.1mcg/mL correlates with steady state AUC/YENNI 534mg/L.hr - therapeutic * Continue 1000 mg IV every 12 hours * Given improving renal function (and addition of zosyn), will repeat a level tomorrow AM. Pharmacy will continue to follow and will adjust dose/frequency as necessary. Thank you. Pharmacy has transitioned to AUC monitoring for vancomycin. AUC/YENNI is the preferred PK/PD target and is associated with decreased risk of nephrotoxicity compared to traditional trough targets.
[2022-03-06] MEDS ORDERED: STAT IV Infusion **Titration per Protocol STA (09:17)
[2022-03-06] MEDS: POLYETHYLENE (MIRALAX) 17 GM PACK PO SCH (10:44)
[2022-03-06] MEDS: SENNOSIDES 8.8 MG/5 ML UDC PO SCH (10:44)
[2022-03-06] MEDS: SODIUM CHLORIDE 0.9% IV SCH (10:56)
[2022-03-06] MEDS: CASPOFUNGIN IV SCH (10:56)
[2022-03-06] MEDS: ACETAMINOPHEN 500 MG TAB PO PRN ×2 (10:56→17:38)
--- NOTE | 2022-03-06 12:18 | XRay Report ---
XR chest 1V portable HISTORY: Respiratory failure. Follow-up. COMPARISON: Chest 03/05/2022. FINDINGS: Nasogastric tube terminates below the diaphragm. The tip is not included on this study. Lef t subclavian catheter terminates in the distal SVC. Endotracheal tube terminates approximately 12 mm from the misti. No pneumothorax. Patchy bilateral airspace opacities persist. IMPRESSION: 1. Endotracheal tube terminates approximately 12 mm from the misti. Remaining lines/tubes are unchan ged in position. 2. No change in the patchy bilateral airspace opacities. ACT 112: Negative or not required by law. Electronically signed by: Arnol Kenney M.D. 03/06/2022 12:17 PM
--- NOTE | 2022-03-06 14:59 | Cardiology Progress Note ---
Date of Service March 06, 2022 Assessment & Plan (1) Acute respiratory failure with hypoxia: (2) Multifocal pneumonia: (3) Acute exacerbation of chronic obstructive pulmonary disease: (4) Metabolic acidosis: (5) Opiate abuse, continuous: (6) Chronic heart failure with preserved ejection fraction (HFpEF): (7) Hx of drug abuse: (8) History of cardiac cath: (9) Coronary artery disease: (10) Diabetes mellitus, type 2: (11) Hypertension: (12) History of DVT (deep vein thrombosis): (13) Acute systolic (congestive) heart failure: (14) Aortic stenosis: (15) Severe tricuspid regurgitation: (16) Tricuspid valve mass: Plan Given her newly discovered tricuspid annular lesion and severe tricuspid regurgitation 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 Blood culture now growing staph intermedius. At this point, STEVEN would not change treatment course. Luckily, there is not appear to be any abscess tract formation around the annulus, no clear indication for urgent surgery Patient has been started on broad-spectrum antibiotic coverage and will o bviously defer to the primary team and infectious disease the choice of agents Her LV systolic function is now significantly reduced as well from baseline. Without objective finding of active ischemia would suspect this is due to catecholamine surge in the setting of significant infection, although, myocarditis cannot be ruled out at this point. Likely though, the patient is hemodynamically stable Chest x-ray improved today She is for sedation holiday and spontaneous breathing trials today. No cardiac changes at this time. Admission and Anticipated Discharge Date Admission Date: March 03, 2022 Subjective Patient seen and examined. Chart reviewed. Telemetry reviewed. Case discussed with bedside nursing. Review of Systems Review of Systems: Unobtainable due to endotracheal tube Physical Exam Physical Exam: General: Intubated and sedated. No acute distress. HEENT: Normocephalic, atraumatic. Pupils equal, round and reactive to light and accommodation. Extraocular muscles are intact. Anicteric sclera. Moist mucous membranes. Neck: No JVD. No bruit. Cardiovascular: Regular. Positive S-4. Normal S-1 and S-2. No S-3. 3/6 holosystolic ejection murmur, 5th intercostal space, mid-clavicular line without radiation. No rubs. Pulmonary: Clear to auscultation bilaterally. No rales, rhonchi, or wheezing. Abdomen: Bowel sounds x 4, soft. No rebound, guarding or tenderness. No organomegaly. Extremities: No clubbing, cyanosis or edema. +2 pedal pulses bilaterally. Skin: Warm and dry. Nonspecific lower extremity skin changes. No visible track sparks. No Osler's nodes or Janeway lesions identified Results & Data ([facility]) Vital Signs (Past 12 Hours) Vital Signs Temp Pulse Resp BP Pulse Ox O2 Del Method FiO2 03/06/22 14:00 37.7 C H 106 H 22 95 03/06/22 14:00 134/66 03/06/22 13:00 37.8 C H 104 H 24 99 03/06/22 13:00 130/66 03/06/22 12:00 37.6 C H 106 H 22 94 03/06/22 12:00 128/66 03/06/22 11:13 37.5 C 100 H 20 97 03/06/22 11:13 112/76 03/06/22 12:00 30 03/06/22 10:10 99 H 03/06/22 11:20 88 23 95 40 03/06/22 11:00 37.6 C H 102 H 26 H 93 03/06/22 10:30 37.5 C 99 H 23 97 03/06/22 10:00 37.5 C 102 H 23 98 03/06/22 10:00 122/66 03/06/22 09:30 37.5 C 106 H 23 98 03/06/22 08:00 Mechanical Vent 30 03/06/22 09:00 37.6 C H 106 H 25 H 97 03/06/22 09:00 118/63 03/06/22 08:30 37.5 C 102 H 28 H 91 03/06/22 08:00 37.4 C 100 H 28 H 91 03/06/22 08:00 127/66 03/06/22 07:30 37.2 C 102 H 23 97 03/06/22 08:00 30 03/06/22 07:00 37.0 C 91 H 21 97 03/06/22 07:00 116/66 03/06/22 06:00 36.7 C 90 31 H 96 03/06/22 06:00 112/64 03/06/22 07:33 92 H 32 H 98 40 03/06/22 05:00 84 29 H 98 03/06/22 04:00 36.7 C 77 27 H 98 03/06/22 04:00 110/64 03/06/22 03:00 36.7 C 73 34 H 99 03/06/22 03:00 107/65 03/06/22 04:00 40 03/06/22 04:07 84 27 H 97 40 (1) Diabetes mellitus, type 2 Diabetes mellitus complication status: with unspecified complications 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
[2022-03-06] MEDS: AZITHROMYCIN 500 MG in DEXTROSE 5% 250 ML IV SCH (15:05)
[2022-03-06] MEDS ORDERED: OPTIRAY 320 500ml IV ONE (16:52)
--- NOTE | 2022-03-06 16:57 | Hospitalist Progress Note ---
Date of Service March 06, 2022 Assessment & Plan (1) Acute respiratory failure with hypoxia: Plan: Mechanical ventilation support Present on admission with worsening SOB, congestion and productive cough CXR showed cardiomegaly. Multifocal airspace opacities compatible pneumonia. CTA chest showed no evidence of pulmonary embolus in the main, lobar, or segmental pulmonary arteries. received IV solumedrol and meropenem on admission Currently sedated and intubated on vent support Sputum cx grew staph intermedius Vent management as per associate dentist Failed attempt for extubated Sepsis Met sepsis criteria on admission with tachycardia, leukocytosis, elevate RR WBC 31.9 K, now trending to 23k lactic acid and procalcitonin elevated Pressor discontinued Blood cx on 03/03 and 03/04 no growth ID consult on board Currently on azithromycin, caspofungin, IV Zosyn and Vanco Acute systolic CHF exacerbation BNP 516 on admission Received IV lasix ECHO showed severely reduced LV systolic function with severe global hypokinesis with EF 30-35% cardiology on board Continue Monitor I/O Tricuspid valve mass Severe tricuspid regurgitation Given her newly discovered tricuspid annular lesion and severe tricuspid regurgitation seen on ECHO banquet director believe the patient 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 there is not appear to be any abscess tract formation around the annulus, no clear indication for urgent surgery Blood cx on 03/03 and 03/04 no growth ID on board Currently on broad spectrum abx with azithromycin, caspofungin, IV Zosyn and Vanco Case discussed with cardiology Dr. Alexis Knight at [facility] for possible transfer for angio VAC treatment of endocarditis. Dr. Knight will review the echocardiogram and discuss case with cardiothoracic surgeon to see if patient is a candidate for the angio VAC treatment endocarditis Dr. Knight will contact me tomorrow about the transfer I made our associate dentist Dr Loaiza aware about the transfer pending Elevated troponin Mostly demand ischemia due to acute respiratory failure troponin on admisison 45.4 then increased to 91.7 Cardiology on board ECHO showed ECHO showed severely reduced LV systolic function with severe global hypokinesis with EF 30-35% Continue aspirin, plavix and statin Metoprolol discontinued due to Low BP Continue monitor closely AJIT Creatinine 1.5 on admission Creatinine 0.9 today Continue to avoid nephrotoxic agents Continue monitor BMP Hyponatremia Na 134 today Continue monitor BMP DVT px on heparin subq Code status FULL code Disposition Consider transfer to [facility] for angio VAC treatment endocarditis Admission and Anticipated Discharge Date Admission Date: March 03, 2022 Subjective Pt was seen and examined for respiratory failure Sedated and intubated on mechanical vent support Pt failed weaning today Spoke to Dr. Alexis Knight in [place] for possible transfer Review of Systems Review of Systems: All systems reviewed & are unremarkable except as noted in Subjective Physical Exam Physical Exam: General- sedated Head- atraumatic Eyes- PERRL ENT- Intubated Neck- supple, no JVD Lungs- Mechanical ventilation support, no wheezing Heart- regular rhythm; +systolic murmur Abdomen- normal bowel sounds, soft, nontender Extremities- no calf tenderness Neuro- sedated Skin- warm & dry, No Osler's nodes or Janeway lesions identified Results & Data Results & Data ([facility]) Vital Signs (Past 12 Hours) Vital Signs Temp Pulse Resp BP Pulse Ox O2 Del Method FiO2 03/06/22 15:00 37.7 C H 110 H 23 97 03/06/22 15:00 133/69 03/06/22 14:00 37.7 C H 106 H 22 95 03/06/22 14:00 134/66 03/06/22 13:00 37.8 C H 104 H 24 99 03/06/22 13:00 130/66 03/06/22 12:00 37.6 C H 106 H 22 94 03/06/22 12:00 128/66 03/06/22 11:13 37.5 C 100 H 20 97 03/06/22 11:13 112/76 03/06/22 12:00 30 03/06/22 10:10 99 H 03/06/22 11:20 88 23 95 40 03/06/22 11:00 37.6 C H 102 H 26 H 93 03/06/22 10:30 37.5 C 99 H 23 97 03/06/22 10:00 37.5 C 102 H 23 98 03/06/22 10:00 122/66 03/06/22 09:30 37.5 C 106 H 23 98 03/06/22 08:00 Mechanical Vent 30 03/06/22 09:00 37.6 C H 106 H 25 H 97 03/06/22 09:00 118/63 03/06/22 08:30 37.5 C 102 H 28 H 91 03/06/22 08:00 37.4 C 100 H 28 H 91 03/06/22 08:00 127/66 03/06/22 07:30 37.2 C 102 H 23 97 03/06/22 08:00 30 03/06/22 07:00 37.0 C 91 H 21 97 03/06/22 07:00 116/66 03/06/22 06:00 36.7 C 90 31 H 96 03/06/22 06:00 112/64 03/06/22 07:33 92 H 32 H 98 40 03/06/22 05:00 84 29 H 98
--- NOTE | 2022-03-06 17:15 | CT Scan Report ---
CT ANGIOGRAM OF THE CHEST CLINICAL HISTORY: Respiratory failure. COMPARISON STUDY: Chest x-ray dated 03/06/2022. Chest CT dated 07/10/2021. TECHNIQUE: Following the IV administration of 119 cc of Optiray 320, CT angiogram of the chest was pe rformed from the upper abdomen to the thoracic inlet utilizing the pulmonary embolus protocol. Images are reviewed in the axial, sagittal, and coronal planes. 3-D MIPS images are created and assessed. I V contrast was administered without complication. A dose lowering technique was utilized adhering to the principles of ALARA. The examination is severely degraded by motion artifact. There is also stre ak artifact from the arms which could not be elevated above the chest. CT DOSE: 779.91 mGy.cm FINDINGS: Thyroid: The thyroid gland is enlarged and heterogeneous. Low-attenuation nodules measure up to 1.6 c m. Thoracic aorta: There is mild atherosclerotic calcification of the thoracic aorta, which is normal in caliber and demonstrates standard 3-vessel arch anatomy. No dissection is seen. Pulmonary vasculature: The pulmonary trunk is normal in caliber. There are no filling defects identif ied in main, lobar, or segmental pulmonary branches to suggest pulmonary embolus. Evaluation of the s ubsegmental branches is degraded by motion artifact. Heart: A left subclavian central venous catheter is in place. The heart is mildly enlarged and withou t pericardial effusion. The coronary arteries are densely calcified. Lungs and pleural spaces: An endotracheal tube terminates at the level of the misti. Extensive/diffu se groundglass consolidation is seen throughout both lungs. Foci of air trapping are seen at the left lung base. There is associated intralobular septal thickening. Mediastinum: There is bulky mediastinal lymphadenopathy. A subcarinal node measures 3.8 cm short axis . Prevascular nodes measure up to 1.4 cm short axis. Sameera: There is bilateral hilar adenopathy. Hilar nodes measure up to 1.6 cm in short axis. Axillae: There is no axillary lymphadenopathy. Upper abdomen: An enteric tube is in place. This extends below the diaphragm into the stomach. The li pearl is enlarged and steatotic. Reflux of contrast into the IVC and hepatic veins suggest cardiac dysf unction. The spleen is enlarged. Skeletal structures: The skeletal structures are osteopenic. There is a mild superior endplate compre ssion deformity of L1. No lytic or blastic bony lesions are seen. IMPRESSION: 1. Streak and motion compromised examination 2. An endotracheal tube terminates at the level of the misti. Consider repositioning. 3. There is no evidence of pulmonary embolus in the main, lobar, or segmental pulmonary arteries. 4. Cardiomegaly and coronary artery calcification. 5. Groundglass consolidation is seen throughout both lungs with associated intralobular septal thicke chrissy. Differential considerations include pulmonary edema, multifocal pneumonia, and/or ARDS. Clinica l correlation will be essential and radiographic follow-up to resolution is recommended. 6. There is bulky mediastinal and hilar lymphadenopathy. Clinical correlation required. 7. Hepatomegaly with hepatic steatosis. 8. Splenomegaly. 9. Enlarged multinodular thyroid gland. Nonemergent/outpatient thyroid ultrasound is recommended in f ollow-up. 10. Additional findings as above. ACT 112: Negative or not required by law. Electronically signed by: Ja Villanueva M.D. 03/06/2022 5:14 PM
[2022-03-06] MEDS: propofoL 1,000 MG/100 ML VIAL IV PRN ×2 (18:40→23:36)
[2022-03-06] MEDS: DOCUSATE SODIUM SYRUP 100 MG/10 ML UDC PO SCH (20:06)
[2022-03-07] MEDS: fentaNYL citrate 2,500 MCG/250 ML BAG IV SCH ×3 (01:16→13:28)
[2022-03-07 01:57] LABS: 7-Aminoclonaz, Confirm NEGATIVE ng/mL (<25); Hydro-Alp Ur, GC/MS NEGATIVE ng/mL (<25); Hydroxyethylflurazepam, Conf NEGATIVE ng/mL (<50); Hydroxymidazolam Ur, GC/MS 408 ng/mL (<50); Hydroxytriazolam NEGATIVE ng/mL (<50); Lorazepam, Ur GC/MS NEGATIVE ng/mL (<50); Nordiazepam, Confirm NEGATIVE ng/mL (<50); Oxazepam Ur, GC/MS NEGATIVE ng/mL (<50); Temazepam, Confirm NEGATIVE ng/mL (<50)
[2022-03-07 04:15] LABS: Basophils # (auto) 0.04 K/uL (0-0.2); Basophils % (auto) 0.4 %; Eosinophils # (auto) 0.38 K/uL (0-0.50); Eosinophils % (auto) 4.2 %; Hematocrit (blood only) 23.9 % (34.1-44.9); Hemoglobin 7.7 g/dl (12.0-16.0); Immature Granulocytes # (auto) 0.13 K/uL (0.00-0.02); Immature Granulocytes % (auto) 1.4 %; Lymphocytes # (auto) 2.07 K/uL (1.2-3.4); Lymphocytes % (auto) 22.9 %; Mean Corpuscular Hemoglobin 27.2 pg (25.0-34.0); Mean Corpuscular Hgb Conc 32.2 g/dL (32.0-36.0); Mean Corpuscular Volume 84.5 fL (80.0-100.0); Mean Platelet Volume 8.7 fL (9.4-12.3); Monocytes # (auto) 0.65 K/uL (0.24-0.82); Monocytes % (auto) 7.2 %; Neutrophils # (auto) 5.75 K/uL (1.4-6.5); Neutrophils % (auto) 63.9 %; Platelet Count 320 K/uL (130-400); RDW Coefficient of Variation 17.8 % (11.5-14.5); RDW Standard Deviation 54.5 fL (36.4-46.3); Red Blood Count 2.83 M/uL (3.93-5.22); White Blood Count 9.02 K/ul (4.8-10.8)
[2022-03-07] MEDS: INSULIN ASPART PER UNIT SC SCH ×5 (04:18→19:57)
[2022-03-07] MEDS: propofoL 1,000 MG/100 ML VIAL IV PRN ×2 (04:18→09:29)
[2022-03-07 04:51] LABS: BUN Creatinine Ratio 14.7 (10-20); Calcium 8.8 mg/dl (8.5-10.1); Creatinine Clr Calc Pharmacy 72.5 ml/min; Est GFR (African American) 77.5 ml/min; Est GFR (Non-African American) 66.8 ml/min; Potassium 3.6 mmol/L (3.5-5.1)
[2022-03-07] MEDS ORDERED: VANCOMYCIN LEVEL ONE (05:00)
[2022-03-07] MEDS: fentaNYL BOLUS from BAG IV PRN (05:24)
[2022-03-07] MEDS: TUBE FEEDING WATER FLUSH OG SCH ×6 (05:24→23:15)
[2022-03-07 05:39] LABS: iSTAT Arterial Blood Gas HCO3 22 meg/L (19-24); iSTAT Arterial Blood Gas pCO2 38 mmHg (35-46); iSTAT Arterial Blood Gas pH 7.36 (7.35-7.45); iSTAT Arterial Blood Gas pO2 100 mmHg (80-95); iSTAT Carbon Dioxide 23 mmol/L (24-31); iSTAT FiO2 30 %; iSTAT Site R Brachial
[2022-03-07] MEDS: ICU ELECTROLYTE REPLACEMENT PROTOCOL SCH ×2 (05:40→17:49)
[2022-03-07] MEDS: PIPERACILLIN/TAZOBACTAM 4.5 GM in DEXTROSE 5% 100 ML IV SCH ×3 (05:46→21:03)
[2022-03-07] MEDS: VANCOMYCIN HCL 1,000 MG in SODIUM CHLORIDE 0.9% 250 ML IV SCH ×2 (05:47→17:48)
[2022-03-07] MEDS: HEPARIN SOD 5,000 UNIT/0.5 ML VIAL SQ SCH (05:47)
[2022-03-07] MEDS: MAGNESIUM OXIDE 400 MG TAB NG SCH ×2 (06:14→09:29)
[2022-03-07] MEDS: POTASSIUM CHLORIDE 20 MEQ/15 ML UDC NG SCH ×2 (06:14→09:29)
[2022-03-07] MEDS ORDERED: POTASSIUM CHLORIDE 20 MEQ/15 ML UDC PO STA ×2 (06:42→07:47)
[2022-03-07 07:05] LABS: RBC Morphology Unremarkable
[2022-03-07] MEDS: IPRATROPIUM BROMIDE NEB SOLN 0.02% 2.5 ML VIAL INH SCH ×4 (07:05→19:26)
[2022-03-07] MEDS: LEVALBUTEROL 1.25MG/0.5ML NEB INH SCH ×4 (07:05→19:20)
[2022-03-07 07:16] LABS: Estimated Average Glucose 117 mg/dl; Hemoglobin A1C 5.7 % (4.5-5.6)
[2022-03-07] MEDS ORDERED: FUROSEMIDE 40 MG/4 ML VIAL IV ONE (07:47)
--- NOTE | 2022-03-07 08:13 | Critical Care Progress Note ---
Date of Service March 07, 2022 Assessment & Plan (1) Tricuspid valve mass: (2) Severe tricuspid regurgitation: (3) Aortic stenosis: (4) Acute systolic (congestive) heart failure: (5) Abnormal CT scan, chest: (6) Acute respiratory failure with hypoxia: Plan Impression: 42-year-old female with history of diabetes, opiate abuse, and aortic stenosis admitted with diffuse pulmonary infiltrates and hypoxemic respiratory failure. She was intubated shortly after arrival to the ICU. Recommendations: 1. Neurologic: Continue sedation vacations daily. Following simple commands. Questionable prior history of seizure disorder and will continue Keppra, Topamax. Continue Celexa. Hold gabapentin. 2. Cardiovascular: Mobile tricuspid 10 mm lesion concerning for vegetation however cultures are negative to date. Her hypotension is now resolved. ID consult appreciated. Zosyn ordered. Continue vancomycin. Continue caspofungin. Consider referral to tertiary care center for angio VAC treatment of endocarditis. Patient is being evaluated by the [facility] service for possible transfer. 3. Pulmonary: Acute hypoxemic respiratory failure secondary to what appears to be pulmonary edema. Respiratory cultures are also positive for Staphylococcus intermedius. Continue to wean FiO2 and PEEP as tolerated. Failed SBT attempts due to pulmonary edema. CT chest with contrast obtained 03/06/2022 with diffuse groundglass opacities. No pulm embolism seen. 4. 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 Continue vancomycin and Zosyn. Beta glucan ordered. Continue caspofungin. Appreciate ID consultation. 5. GI: Continue antireflux medication and tube feeds. 6. Renal: ICU electrolyte replacement protocol. No significant issues. 7. Heme-onc: Mild anemia. No indication for transfusion currently. Continue to trend. 8. Endocrine: Glycemic control per protocol. CRITICAL CARE TIME - I have personally spent 44 minutes of critical care time in the direct management of this patient. This is a life/limb threatening event. This includes time spent evaluating patient, direct bedside care, chart review, placing orders, interpretation of diagnostic studies, discussion with consultants, patient, and family members, as well as other required patient management activities. This time is exclusive of all separately billable procedures, and teaching time and separate from and in addition to any other critical care service time. Admission and Anticipated Discharge Date Admission Date: March 03, 2022 Subjective Remains hemodynamically stable. No significant events overnight. Remains on minimal vent support. Review of Systems Review of Systems: Unobtainable due to endotracheal tube Physical Exam Constitutional: WD/WN, vitals as above Neck: trachea midline, no thyromegaly Respiratory: normal respiratory effort, lungs clear to auscultation Cardiovascular: RRR, no murmur, no edema Gastrointestinal (Abdomen): normal bowel sounds, soft, nontender, no hepatosplenomegaly Musculoskeletal: Extremities: extremities normal to inspection Skin: no rashes, warm and dry Neurologic: Nonfocal exam Lymphatic: no cervical lymphadenopathy Results & Data Results & Data ([facility]) Vital Signs (Past 12 Hours) Vital Signs Temp Pulse Resp BP Pulse Ox O2 Del Method FiO2 03/07/22 07:00 37.5 C 82 20 98 Mechanical Vent 30 03/07/22 07:00 131/69 03/07/22 07:18 81 29 H 95 30 03/07/22 06:00 37.4 C 85 21 03/07/22 06:00 132/74 03/07/22 05:00 37.4 C 87 21 03/07/22 05:00 122/69 03/07/22 04:00 37.6 C H 91 H 24 97 03/07/22 04:00 125/74 03/07/22 03:35 88 32 H 98 30 03/07/22 04:00 30 03/07/22 03:00 37.5 C 81 20 97 03/07/22 03:00 121/68 03/07/22 02:00 37.6 C H 79 22 97 03/07/22 02:00 122/66 03/07/22 01:00 37.6 C H 82 20 97 03/07/22 01:00 120/68 03/07/22 00:00 37.7 C H 85 21 97 03/07/22 00:00 123/67 03/06/22 23:00 37.6 C H 85 21 98 03/06/22 23:00 125/66 03/06/22 22:00 37.5 C 85 19 99 03/06/22 22:00 121/64 03/06/22 23:50 85 30 H 98 30 03/07/22 00:00 30 03/07/22 00:00 84 03/06/22 21:00 37.5 C 90 24 98 03/06/22 21:00 127/64 03/06/22 21:38 Mechanical Vent 30 Coding Level of Care Code Critical Care 1st 30-74 mins Diagnoses Tricuspid valve mass I07.8 Severe tricuspid regurgitation I07.1 Aortic stenosis I35.0 Acute systolic (congestive) heart failure I50.[address] scan, chest R93.89 Acute respiratory failure with hypoxia J96.01 Time Spent (min) 44
--- NOTE | 2022-03-07 08:23 | Pharmacy Report ---
Pharmacy PK ABX Note - Date of Service March 07, 2022 - Assessment and Plan Assessment 42 year old F receiving vancomycin, zosyn, and caspofungin for treatment of tricuspid valve endocarditis. Blood cultures negative to date, sputum culture (+) Staph intermedius, methicillin sensitive (MRSA nasal negative). Fungal culture pending. Patient remains intubated, however no longer requiring pressor support. Resolving AJIT. ID consulted. Day #4 of antimicrobial therapy. Plan Vancomycin * Random level this AM (~10hr level) 21.4mcg/mL (true trough ~19.6) correlates with steady state AUC/YENNI ~600mg/L.hr - therapeutic. * Demonstrating accumulation at this point. Given site of infection/severity, will continue 1gm q12h for today to target higher end of AUC/YENNI range. Repeat level in AM. Will likely require dose adjustment. Pharmacy will continue to follow and will adjust dose/frequency as necessary. Thank you. Pharmacy has transitioned to AUC monitoring for vancomycin. AUC/YENNI is the preferred PK/PD target and is associated with decreased risk of nephrotoxicity compared to traditional trough targets.
[2022-03-07] MEDS: ESCITALOPRAM OXALATE 20 MG TAB PO SCH (08:36)
[2022-03-07] MEDS: ATORVASTATIN 40 MG TAB PO SCH (08:36)
[2022-03-07] MEDS: CLOPIDOGREL BISULFATE 75 MG TAB PO SCH (08:36)
[2022-03-07] MEDS: FAMOTIDINE 20 MG TAB PO SCH ×2 (08:36→21:05)
[2022-03-07] MEDS: ASPIRIN 81 MG CHEW PO SCH (08:36)
[2022-03-07] MEDS: DOCUSATE SODIUM SYRUP 100 MG/10 ML UDC PO SCH ×2 (08:36→19:29)
[2022-03-07] MEDS: TOPIRAMATE 25 MG TAB PO SCH ×2 (08:37→21:05)
[2022-03-07] MEDS: SENNOSIDES 8.8 MG/5 ML UDC PO SCH (08:37)
[2022-03-07] MEDS: POLYETHYLENE (MIRALAX) 17 GM PACK PO SCH (08:37)
[2022-03-07] MEDS: SODIUM CHLORIDE 0.9% IV SCH (11:24)
[2022-03-07] MEDS: CASPOFUNGIN IV SCH (11:24)
--- NOTE | 2022-03-07 12:18 | Hospitalist Progress Note ---
Date of Service March 07, 2022 Assessment & Plan (1) Acute respiratory failure with hypoxia: Plan: - Mechanical ventilation support - Present on admission with worsening SOB, congestion and productive cough - CXR showed cardiomegaly. Multifocal airspace opacities compatible pneumonia. - CTA chest showed no evidence of pulmonary embolus in the main, lobar, or segmental pulmonary arteries. - Currently sedated and intubated on vent support - Sputum cx grew staph intermedius - Vent management as per retail cashier - wean as tolerated - minimal vent settings but failed spontaneous breathing trial 03/06/2022 - concern for endocarditis but negative blood cultures [place] [facility] [place] evaluated and do not feel there is vegetation and even so, not candidate for AngioVac procedure (2) Multifocal pneumonia: Plan: - seen on CXR and CT chest - vent management as above - wean as tolerated - on broad abx with vanc, Zosyn, caspofungin per ID - follow up ID - blood cultures negative to date (3) Sepsis: Plan: - Met sepsis criteria on admission with tachycardia, leukocytosis, elevate RR - WBC 31.9 K, now trending down - lactic acid and procalcitonin elevated on admission - Pressor discontinued - BP maintaining - Blood cx on 03/03 and 03/04 no growth to date - ID consult on board - Currently on azithromycin, caspofungin, IV Zosyn and Vanco - continue (4) Elevated troponin I level: Plan: - Mostly demand ischemia due to acute respiratory failure - troponin on admisison 45.4 then increased to 91.7 - Cardiology on board - ECHO showed ECHO showed severely reduced LV systolic function with severe global hypokinesis with EF 30-35% - Continue aspirin, plavix and statin - no cardiology intervention at this time - Metoprolol discontinued due to Low BP - will consider restarting per Cardiology - Continue monitor closely (5) CHF (congestive heart failure): Plan: - BNP 516 on admission - Received IV lasix - ECHO showed severely reduced LV systolic function with severe global hypokinesis with EF 30-35% - cardiology on board - Continue Monitor I/O (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 there is not appear to be any abscess tract formation around the annulus, no clear indication for urgent surgery - Blood cx on 03/03 and 03/04 no growth - ID on board - Currently on broad spectrum abx with azithromycin, caspofungin, IV Zosyn and Vanco - Case discussed with cardiology Dr. Alexis Knight [place] [facility] [place] transfer for angio VAC treatment of endocarditis - follow up with [place] [facility] [place] not believe this is vegetation but difficult to assess, STEVEN would be definitive, however, AngioVac procedure would not benefit patient and so patient will not be transferred at this time - will continue empiric treatment with IV abx - consider STEVEN if positive blood cultures or clinical deterioration Plan DVT ppx: heparin SC Code Status: Full Code Dispo: ICU Dylon Aldrich MD Hospital Medicine Admission and Anticipated Discharge Date Admission Date: March 03, 2022 Subjective Patient with DM, OUD, admitted for acute hypoxic respiratory failure and diffuse pulmonary infiltrates on mechancial ventelation. On vancomycin, zosyn, capsofungin per ID. Question of endocarditis, evaluated by [facility] who do not feel patient would benefit from intervention on potential vegetation and not accepting transfer at this time. Blood cultures have been negative. Patient is intubated and sedated on minimal vent settings at this time. Failed spontaneous breathing trial 03/05/2022. Review of Systems Review of Systems: Unobtainable due to endotracheal tube Physical Exam Physical Exam: General- sedated Head- atraumatic Eyes- PERRL ENT- Intubated Neck- supple, no JVD Lungs- Mechanical ventilation support, no wheezing Heart- regular rhythm; +systolic murmur Abdomen- normal bowel sounds, soft, nontender Extremities- no calf tenderness Neuro- sedated Skin- warm & dry, No Osler's nodes or [place] lesions identified Results & Data Results & Data ([facility]) Vital Signs (Past 12 Hours) Vital Signs Temp Pulse Resp BP Pulse Ox O2 Del Method FiO2 03/07/22 09:05 81 03/07/22 10:00 37.6 C H 78 21 99 03/07/22 10:00 125/68 03/07/22 09:00 37.5 C 87 25 H 99 03/07/22 09:00 126/71 03/07/22 08:06 133/73 03/07/22 08:06 37.5 C 105 H 31 H 88 L 03/07/22 08:00 37.6 C H 99 H 25 H 96 03/07/22 08:00 30 03/07/22 07:00 37.5 C 82 20 98 Mechanical Vent 30 03/07/22 07:00 131/69 03/07/22 07:18 81 29 H 95 30 03/07/22 06:00 37.4 C 85 21 03/07/22 06:00 132/74 03/07/22 05:00 37.4 C 87 21 03/07/22 05:00 122/69 03/07/22 04:00 37.6 C H 91 H 24 97 03/07/22 04:00 125/74 03/07/22 03:35 88 32 H 98 30 03/07/22 04:00 30 03/07/22 03:00 37.5 C 81 20 97 03/07/22 03:00 121/68 03/07/22 02:00 37.6 C H 79 22 97 03/07/22 02:00 122/66 03/07/22 01:00 37.6 C H 82 20 97 03/07/22 01:00 120/68 Diagnostic Findings Laboratory Results WBC 9.02 K/ul (4.8-10.8) 03/07/22 04:00 RBC 2.83 M/uL (3.93-5.22) L 03/07/22 04:00 Hgb 7.7 g/dl (12.0-16.0) L 03/07/22 04:00 POC Hgb 7.1 g/dl (12.0-16.0) L 03/05/22 14:23 Hct 23.9 % (34.1-44.9) L 03/07/22 04:00 POC Hct 21 % (37-47) L 03/05/22 14:23 MCV 84.5 fL (80.0-100.0) 03/07/22 04:00 MCH 27.2 pg (25.0-34.0) 03/07/22 04:00 MCHC 32.2 g/dL (32.0-36.0) 03/07/22 04:00 RDW Std Deviation 54.5 fL (36.4-46.3) H 03/07/22 04:00 RDW Coeff of Hannah 17.8 % (11.5-14.5) H 03/07/22 04:00 Plt Count 320 K/uL (130-400) 03/07/22 04:00 MPV 8.7 fL (9.4-12.3) L 03/07/22 04:00 Immature Gran % (Auto) 1.4 % 03/07/22 04:00 Neut % (Auto) 63.9 % 03/07/22 04:00 Lymph % (Auto) 22.9 % 03/07/22 04:00 [place] % (Auto) 7.2 % 03/07/22 04:00 Eos % (Auto) 4.2 % 03/07/22 04:00 Baso % (Auto) 0.4 % 03/07/22 04:00 Neut # (Auto) 5.75 K/uL (1.4-6.5) 03/07/22 04:00 Lymph # (Auto) 2.07 K/uL (1.2-3.4) 03/07/22 04:00 [place] # (Auto) 0.65 K/uL (0.24-0.82) 03/07/22 04:00 Eos # (Auto) 0.38 K/uL (0-0.50) 03/07/22 04:00 Baso # (Auto) 0.04 K/uL (0-0.2) 03/07/22 04:00 Immature Gran # (Auto) 0.13 K/uL (0.00-0.02) H 03/07/22 04:00 Neutrophils % (Manual) 94 % 03/03/22 04:20 Lymphocytes % (Manual) 2 % 03/03/22 04:20 Monocytes % (Manual) 3 % 03/03/22 04:20 Basophils % (Manual) 1 % 03/03/22 04:20 Neutrophils # (Manual) 30.06 K/uL (1.4-6.5) H 03/03/22 04:20 Total Absolute Neuts 30.06 K/uL (1.4-6.5) H 03/03/22 04:20 Lymphocytes # (Manual) 0.64 K/uL (1.2-3.4) L 03/03/22 04:20 Total Abs Lymphocytes 0.64 K/uL (1.2-3.4) L 03/03/22 04:20 Monocytes # (Manual) 0.96 K/uL (0.24-0.82) H 03/03/22 04:20 Basophils # (Manual) 0.32 K/uL (0-0.2) H 03/03/22 04:20 RBC Morphology Unremarkable 03/07/22 04:00 Echinocytes 2+ 03/03/22 04:20 Haptoglobin 211 mg/dL (43-212) 03/04/22 10:10 APTT 31.3 Seconds (21.0-31.0) H 03/03/22 04:20 PTT Ratio 1.1 03/03/22 04:20 Sample Site R Brachial 03/07/22 05:24 POC pH 7.36 (7.35-7.45) 03/07/22 05:24 POC pCO2 38 mmHg (35-46) 03/07/22 05:24 POC pO2 100 mmHg (80-95) H 03/07/22 05:24 POC HCO3 22 quinn/L (19-24) 03/07/22 05:24 POC Total CO2 23 mmol/L (24-31) L 03/07/22 05:24 POC Base Excess -4.0 quinn/L (-9-1.8) 03/07/22 05:24 ABG pH (Temp Correct) 7.373 (7.35-7.45) 03/05/22 14:23 ABG pCO2 (Temp Corrct 44 mmHg (35-46) 03/05/22 14:23 POC ABG pO2 at Pt Temp 107 03/05/22 14:23 POC ABG O2 Sat 97.0 % (90-95) H 03/07/22 05:24 Caesar Test NA 03/07/22 05:24 VBG pH Cancelled 03/03/22 04:20 VBG pCO2 Cancelled 03/03/22 04:20 VBG pO2 Cancelled 03/03/22 04:20 VBG HCO3 Cancelled 03/03/22 04:20 VBG O2 Saturation Cancelled 03/03/22 04:20 VBG Base Excess Cancelled 03/03/22 04:20 Barometric Pressure Cancelled 03/03/22 04:20 O2 Delivery Device Ventilator 03/07/22 05:24 POC O2 Rate 24 03/07/22 05:24 POC FiO2 30 % 03/07/22 05:24 Tidal Volume 330 03/03/22 10:06 PEEP 5 03/07/22 05:24 POC Sodium 132 mmol/L (135-144) L 03/05/22 14:23 Sodium 140 mmol/L (136-145) 03/07/22 04:00 POC Potassium 3.4 mmol/L (3.3-5.0) 03/05/22 14:23 Potassium 3.6 mmol/L (3.5-5.1) 03/07/22 04:00 Chloride 109 mmol/L (98-107) H 03/07/22 04:00 Carbon Dioxide 23 mmol/L (21-32) 03/07/22 04:00 Anion Gap 8 (3-11) 03/07/22 04:00 BUN 15 mg/dl (6-23) 03/07/22 04:00 Creatinine 1.02 mg/dl (0.6-1.2) 03/07/22 04:00 Est Cr Clr Drug Dosing 72.5 ml/min 03/07/22 04:00 Est GFR ( Amer) 77.5 ml/min 03/07/22 04:00 Est GFR (Non-Af Amer) 66.8 ml/min 03/07/22 04:00 BUN/Creatinine Ratio 14.7 (10-20) 03/07/22 04:00 Glucose 97 mg/dl (70-99(Fasting)) 03/07/22 04:00 POC Glucose 136 mg/dl (70-99) H 03/07/22 08:31 POC Glucose (other) 128 mg/dl (70-99) H 03/03/22 20:26 Estimat Average Glucose 117 mg/dl 03/07/22 04:00 Hemoglobin A1c 5.7 % (4.5-5.6) H 03/07/22 04:00 Osmolality 269 mOsm/kg (280-300) L 03/03/22 06:08 Lactate 2.1 mmol/L (0.4-2.0) H* 03/03/22 12:27 Calcium 8.8 mg/dl (8.5-10.1) 03/07/22 04:00 Phosphorus 4.0 mg/dl (2.5-4.9) D 03/07/22 04:00 Magnesium 2.0 mg/dl (1.7-2.4) 03/07/22 04:00 Total Bilirubin 0.5 mg/dl (0.2-1.0) 03/06/22 04:31 Direct Bilirubin 0.3 mg/dl (0-0.2) H 03/03/22 04:20 AST 26 U/L (13-39) 03/06/22 04:31 ALT 14 U/L (7-52) 03/06/22 04:31 Alkaline Phosphatase 114 U/L (34-104) H 03/06/22 04:31 Lactate Dehydrogenase 619 U/L (86-244) H 03/04/22 10:10 Troponin I High Sens 91.7 pg/ml (0-14) H* D 03/03/22 06:08 B-Natriuretic Peptide 516 pg/ml (0-100) H 03/03/22 09:38 Total Protein 6.4 gm/dl (6.0-8.3) 03/06/22 04:31 Albumin 3.4 gm/dl (3.4-5.0) 03/06/22 04:31 Globulin 3.0 gm/dl (2.5-4.0) 03/06/22 04:31 Albumin/Globulin Ratio 1.1 (0.9-2) 03/06/22 04:31 Triglycerides 193 mg/dl (0-150) H 03/07/22 09:47 Procalcitonin 0.46 ng/ml (0-0.5) 03/04/22 10:10 TSH 0.451 uIu/ml (0.300-4.500) 03/03/22 06:08 Urine Color Yellow 03/03/22 05:25 Urine Appearance Cloudy (Clear) A 03/03/22 05:25 Urine pH 5.0 (4.5-7.5) 03/03/22 05:25 Ur Specific [place] 1.012 (1.000-1.030) 03/03/22 05:25 Urine Protein Negative (Negative) 03/03/22 05:25 Urine Glucose (UA) Negative (Negative) 03/03/22 05:25 Urine Ketones Negative (Negative) 03/03/22 05:25 Urine Blood Negative (Negative) 03/03/22 05:25 Urine Nitrite Negative (Negative) 03/03/22 05:25 Urine Bilirubin Negative (Negative) 03/03/22 05:25 Urine Urobilinogen Negative (Negative) 03/03/22 05:25 Ur Leukocyte Esterase Trace (Negative) H 03/03/22 05:25 Urine WBC (Auto) 1-5 /hpf (0-5) 03/03/22 05:25 Urine RBC (Auto) 0-4 /hpf (0-4) 03/03/22 05:25 U Hyaline Cast (Auto) 1-5 /lpf (0-5) 03/03/22 05:25 U Epithel Cells (Auto) >30 /lpf (0-5) H 03/03/22 05:25 Urine Bacteria (Auto) 1+ (Negative) H 03/03/22 05:25 Urine Osmolality 258 mOsm/kg (500-800) L 03/03/22 11:20 Ur Random Sodium 50 mmol/L 03/03/22 11:20 Nasal Screen MRSA (PCR) Negative (Negative) 03/03/22 08:07 Vancomycin Trough 19.1 mcg/ml (10-20) 03/06/22 04:35 Random Vancomycin 21.4 mcg/ml (10-20) H 03/07/22 04:00 Ur Butalbital Confirm Cancelled 03/04/22 13:10 Urine Opiates Screen Cancelled 03/04/22 13:10 Urine Opiates Screen Neg (Neg) 03/04/22 13:10 U Codeine Confrm GC/MS Cancelled 03/04/22 13:10 Ur Morphine (GC/MS) Cancelled 03/04/22 13:10 Ur Hydrocodone (GC/MS) Cancelled 03/04/22 13:10 U Norhydrocodone Conf Cancelled 03/04/22 13:10 Ur Oxycodone Screen Cancelled 03/04/22 13:10 U Noroxycodone Confirm Cancelled 03/04/22 13:10 Ur Oxycodone GC/MS Cancelled 03/04/22 13:10 U Oxymorphone GC/MS Cancelled 03/04/22 13:10 EDDP Confirm Cancelled 03/04/22 13:10 Ur Methadone, Qual Cancelled 03/04/22 13:10 Ur Methadone, Qual Neg (Neg) 03/04/22 13:10 Ur Methadone Cancelled 03/04/22 13:10 Ur Hydromorphone (GC/MS) Cancelled 03/04/22 13:10 Urine Barbiturates Cancelled 03/04/22 13:10 Urine Barbiturates Neg (Neg) 03/04/22 13:10 Ur Phencyclidine Scrn Cancelled 03/04/22 13:10 Ur Phencyclidine (PCP) Neg (Neg) 03/04/22 13:10 Urine PCP Confirm Cancelled 03/04/22 13:10 Ur Amphetamines Screen Cancelled 03/04/22 13:10 U Amphetamines Confirm Cancelled 03/04/22 13:10 U Amphetamin/Meth Scrn Neg (Neg) 03/04/22 13:10 Methamphetamine GC/MS Cancelled 03/04/22 13:10 MDMA (Ecstasy) Screen Neg (Neg) 03/04/22 13:10 Ur Amobarbital GC/MS Cancelled 03/04/22 13:10 U Pentobarbital GC/MS Cancelled 03/04/22 13:10 U Phenobarbital GC/MS Cancelled 03/04/22 13:10 U Secobarbital GC/MS Cancelled 03/04/22 13:10 U OH-Alprazolam Confrm NEGATIVE ng/mL (<25) 03/04/22 13:10 U [id number] GC/MS Cancelled 03/04/22 13:10 U Benzodiazepines Scrn Cancelled 03/04/22 13:10 U Benzodiazepines Scrn Pos (Neg) H 03/04/22 13:10 7-Amino Clonazepam NEGATIVE ng/mL (<25) 03/04/22 13:10 U 7-Aminoclonazepam Screen Cancelled 03/04/22 13:10 Ur Nordiazepam Confirm NEGATIVE ng/mL (<50) 03/04/22 13:10 Ur Nordiazepam GC/MS Cancelled 03/04/22 13:10 U OH-ethylflurazepam NEGATIVE ng/mL (<50) 03/04/22 13:10 U OH-ethylfluraz GC/MS Cancelled 03/04/22 13:10 U Lorazepam Cnf GC/MS Cancelled 03/04/22 13:10 U Lorazepam Cnf GC/MS NEGATIVE ng/mL (<50) 03/04/22 13:10 U Oxazepam Confm GC/MS Cancelled 03/04/22 13:10 U Oxazepam Confm GC/MS NEGATIVE ng/mL (<50) 03/04/22 13:10 Ur Temazepam Confirm NEGATIVE ng/mL (<50) 03/04/22 13:10 Ur Temazepam Cnf GC/MS Cancelled 03/04/22 13:10 U a-Hydroxytriaz GC/MS Cancelled 03/04/22 13:10 U OH-Triazolam Confirm NEGATIVE ng/mL (<50) 03/04/22 13:10 U [id number] Cancelled 03/04/22 13:10 U OH-Midazolam Confirm 408 ng/mL (<50) H 03/04/22 13:10 Urine Cocaine Cancelled 03/04/22 13:10 Ur Cocaine Metabolite Neg (Neg) 03/04/22 13:10 U Cocaine Metab Confirm Cancelled 03/04/22 13:10 Tetrahydrocannabinol Cancelled 03/04/22 13:10 U Marijuana (THC) Screen Cancelled 03/04/22 13:10 U Marijuana (THC) Screen Neg (Neg) 03/04/22 13:10 Drug Screen Comment Cancelled 03/04/22 13:10 Drug Screen Comment SEE NOTE 03/04/22 13:10 SARS-CoV-2 (PCR) NEGATIVE (Negative) 03/03/22 04:00 Influenza Type A (PCR) Negative (Neg) 03/03/22 04:00 Influenza Type B (PCR) Negative (Neg) 03/03/22 04:00 RSV (RT-PCR) Negative (Neg) 03/03/22 04:00 Reference Lab Cancelled 03/04/22 13:10 Impressions Chest X-Ray 03/06/22 07:00 XR chest 1V portable HISTORY: Respiratory failure. Follow-up. COMPARISON: Chest 03/05/2022. FINDINGS: Nasogastric tube terminates below the diaphragm. The tip is not included on this study. Left subclavian catheter terminates in the distal SVC. Endotracheal tube terminates approximately 12 mm from the misti. No pneumothorax. Patchy bilateral airspace opacities persist. IMPRESSION: 1. Endotracheal tube terminates approximately 12 mm from the misti. Remaining lines/tubes are unchanged in position. 2. No change in the patchy bilateral airspace opacities. ACT 112: Negative or not required by law. Electronically signed by: Arnol Kenney M.D. 03/06/2022 12:17 PM Chest CTA 03/06/22 15:47 CT ANGIOGRAM OF THE CHEST CLINICAL HISTORY: Respiratory failure. COMPARISON STUDY: Chest x-ray dated 03/06/2022. Chest CT dated 07/10/2021. TECHNIQUE: Following the IV administration of 119 cc of Optiray 320, CT angiogram of the chest was performed from the upper abdomen to the thoracic inlet utilizing the pulmonary embolus protocol. Images are reviewed in the axial, sagittal, and coronal planes. 3-D MIPS images are created and assessed. IV contrast was administered without complication. A dose lowering technique was utilized adhering to the principles of ALARA. The examination is severely degraded by motion artifact. There is also streak artifact from the arms which could not be elevated above the chest. CT DOSE: 779.91 mGy.cm FINDINGS: Thyroid: The thyroid gland is enlarged and heterogeneous. Low-attenuation nodules measure up to 1.6 cm. Thoracic aorta: There is mild atherosclerotic calcification of the thoracic aorta, which is normal in caliber and demonstrates standard 3-vessel arch anatomy. No dissection is seen. Pulmonary vasculature: The pulmonary trunk is normal in caliber. There are no filling defects identified in main, lobar, or segmental pulmonary branches to suggest pulmonary embolus. Evaluation of the subsegmental branches is degraded by motion artifact. Heart: A left subclavian central venous catheter is in place. The heart is mildly enlarged and without pericardial effusion. The coronary arteries are densely calcified. Lungs and pleural spaces: An endotracheal tube terminates at the level of the misti. Extensive/diffuse groundglass consolidation is seen throughout both lungs. Foci of air trapping are seen at the left lung base. There is associated intralobular septal thickening. Mediastinum: There is bulky mediastinal lymphadenopathy. A subcarinal node measures 3.8 cm short axis. Prevascular nodes measure up to 1.4 cm short axis. Sameera: There is bilateral hilar adenopathy. Hilar nodes measure up to 1.6 cm in short axis. Axillae: There is no axillary lymphadenopathy. Upper abdomen: An enteric tube is in place. This extends below the diaphragm into the stomach. The liver is enlarged and steatotic. Reflux of contrast into the IVC and hepatic veins suggest cardiac dysfunction. The spleen is enlarged. Skeletal structures: The skeletal structures are osteopenic. There is a mild superior endplate compression deformity of L1. No lytic or blastic bony lesions are seen. IMPRESSION: 1. Streak and motion compromised examination 2. An endotracheal tube terminates at the level of the misti. Consider repositioning. 3. There is no evidence of pulmonary embolus in the main, lobar, or segmental pulmonary arteries. 4. Cardiomegaly and coronary artery calcification. 5. Groundglass consolidation is seen throughout both lungs with associated intralobular septal thickening. Differential considerations include pulmonary edema, multifocal pneumonia, and/or ARDS. Clinical correlation will be essential and radiographic follow-up to resolution is recommended. 6. There is bulky mediastinal and hilar lymphadenopathy. Clinical correlation required. 7. Hepatomegaly with hepatic steatosis. 8. Splenomegaly. 9. Enlarged multinodular thyroid gland. Nonemergent/outpatient thyroid ultrasound is recommended in follow-up. 10. Additional findings as above. ACT 112: Negative or not required by law. Electronically signed by: Ja Villanueva M.D. 03/06/2022 5:14 PM Medications Administered Current Inpatient Medications Acetaminophen (Acetaminophen 500 Mg Tab) 500 mg PO Q6H PRN PRN Reason: pain/fever Stop: 04/02/22 07:55 Last Admin: 03/06/22 17:38 Dose: 500 mg Aspirin (Aspirin 81 Mg Chew) 81 mg PO DAILY WILMA Stop: 04/02/22 10:14 Last Admin: 03/07/22 08:36 Dose: 81 mg Atorvastatin Calcium (Atorvastatin 40 Mg Tab) 80 mg PO DAILY WILMA Stop: 04/02/22 08:59 Last Admin: 03/07/22 08:36 Dose: 80 mg Clopidogrel Bisulfate (Clopidogrel Bisulfate 75 Mg Tab) 75 mg PO DAILY WILMA Stop: 04/02/22 08:59 Last Admin: 03/07/22 08:36 Dose: 75 mg Dextrose (Dextrose 50% 50 Ml Syringe) 25 - 50 ml IV UD PRN; Protocol PRN Reason: Hypoglycemia Protocol Stop: 04/02/22 07:55 Docusate Sodium (Docusate Sodium Syrup 100 Mg/10 Ml Udc) 100 mg PO BID WILMA Stop: 04/05/22 20:59 Last Admin: 03/07/22 08:36 Dose: 100 mg Enoxaparin Sodium (Enoxaparin Inj 40 Mg/0.4 Ml Syr) 40 mg SQ QAM WILMA Stop: 04/07/22 08:59 Escitalopram Oxalate (Escitalopram Oxalate 20 Mg Tab) 20 mg PO DAILY WILMA Stop: 04/02/22 08:59 Last Admin: 03/07/22 08:36 Dose: 20 mg Famotidine (Famotidine 20 Mg Tab) 20 mg PO BID WILMA Stop: 04/02/22 20:59 Last Admin: 03/07/22 08:36 Dose: 20 mg Fentanyl Citrate (Fentanyl Bolus From Bag) 50 mcg IV Q60M PRN PRN Reason: Pain or Agitation Stop: 03/17/22 10:16 Last Admin: 03/07/22 05:24 Dose: 50 mcg Gabapentin (Gabapentin 250 Mg/5 Ml 470 Ml Btl) 300 mg NG TID WILMA Stop: 04/02/22 13:59 Last Admin: 03/05/22 08:16 Dose: Not Given Glucagon (Glucagon For Inj 1 Mg Vial) 1 mg SQ UD PRN; Protocol PRN Reason: Hypoglycemia Protocol Stop: 04/02/22 07:55 Glucose (Glucose 40% Gel 15 Gm Tube) 15 - 30 gm PO UD PRN; Protocol PRN Reason: Hypoglycemia Protocol Stop: 04/02/22 07:55 Glucose (Glucose 10 Tab/Tube) 4 - 8 tab PO UD PRN; Protocol PRN Reason: Hypoglycemia Treatment Stop: 04/02/22 07:55 Fentanyl Citrate (Fentanyl Citrate) 2,500 mcg in 250 mls @ 15 mls/hr IV .[id number] WILMA; Protocol Stop: 03/17/22 10:29 Last Titration: 03/07/22 06:49 Dose: 150 mcg/hr, 15 mls/hr Vancomycin HCl 1,000 mg/ (Sodium Chloride) 270 mls @ 200 mls/hr IV Q12H WILMA; Protocol Stop: 04/15/22 17:59 Last Infusion: 03/07/22 07:35 Dose: Infused Piperacillin Sod/Tazobactam (Sod 4.5 gm/ Dextrose) 120 mls @ 30 mls/hr IV Q8H WILMA; Protocol Stop: 04/16/22 21:59 Last Infusion: 03/07/22 09:55 Dose: Infused Propofol (Diprivan) 1,000 mg in 100 mls @ 9.72 mls/hr IV .[id number] PRN; Protocol PRN Reason: sedation Stop: 03/09/22 09:29 Last Admin: 03/07/22 09:29 Dose: 40 mcg/kg/min, 19.4 mls/hr Caspofungin 150 mg/ Sodium (Chloride) 310 mls @ 260 mls/hr IV Q24H [facility] Stop: 04/17/22 10:29 Last Admin: 03/07/22 11:24 Dose: 260 mls/hr Azithromycin 500 mg/ Dextrose 255 mls @ 127.5 mls/hr IV Q24H [facility] Stop: 03/13/22 13:59 Last Infusion: 03/06/22 17:19 Dose: Infused Insulin Aspart (Insulin Aspart Per Unit) 0 units SC Q4 [facility]; Protocol Stop: 04/04/22 07:29 Last Admin: 03/07/22 08:35 Dose: 2 units Ipratropium [place] (Ipratropium [place] Neb Soln 0.02% 2.5 Ml Vial) 0.5 mg INH QIDR [facility] Stop: 04/02/22 10:59 Last Admin: 03/07/22 11:17 Dose: 0.5 mg Levalbuterol HCl (Levalbuterol 1.25mg/0.5ml Neb) 1.25 mg INH QIDR [facility] Stop: 04/02/22 10:59 Last Admin: 03/07/22 11:17 Dose: 1.25 mg Levetiracetam (Levetiracetam Soln 500 Mg/5 Ml Udp) 500 mg NG Q12 [facility] Stop: 04/02/22 10:14 Last Admin: 03/07/22 08:37 Dose: 500 mg Midazolam HCl (Midazolam Hcl 1 Mg/Ml 2ml Vial) 2 mg IV Q2H PRN PRN Reason: RASS goal -1 Stop: 04/02/22 08:53 Last Admin: 03/04/22 13:02 Dose: 2 mg Miscellaneous (Carbohydrates For Hypoglycemia ) 15 - 30 gm PO UD PRN PRN Reason: Hypoglycemia Protocol Stop: 04/02/22 07:55 Miscellaneous (Icu Electrolyte Replacement Protocol) 1 each N/A BID@06,18 [facility]; Protocol Stop: 03/10/22 17:59 Last Admin: 03/07/22 05:40 Dose: 1 each Miscellaneous Information (Vancomycin Consult Active) 1 each N/A UD PRN PRN Reason: Consult Stop: 04/03/22 09:06 Miscellaneous Information (Pharmacy Glycemic Mgmt Consult) 1 each N/A UD PRN; Protocol PRN Reason: Consult Stop: 04/04/22 09:42 Nutritional Formula (Peptamen Intense Vhp 1.0 Eduard 1,000 Ml Bag) 1,000 ml OG UD [facility]; Protocol Stop: 04/03/22 10:44 Last Admin: 03/06/22 23:35 Dose: 1,000 ml Polyethylene Glycol (Polyethylene (Miralax) 17 Gm Pack) 17 gm PO DAILY WILMA Stop: 04/05/22 09:34 Last Admin: 03/07/22 08:37 Dose: 17 gm Sennosides (Sennosides 8.8 Mg/5 Ml Udc) 8.8 mg PO QAM WILMA Stop: 04/05/22 09:44 Last Admin: 03/07/22 08:37 Dose: 8.8 mg Sterile Water (Tube Feeding Water Flush) 30 ml OG Q4H WILMA Stop: 04/03/22 10:44 Last Admin: 03/07/22 10:57 Dose: 30 ml Topiramate (Topiramate 25 Mg Tab) 25 mg PO BID WILMA Stop: 04/02/22 08:59 Last Admin: 03/07/22 08:37 Dose: 25 mg (1) CHF (congestive heart failure) Heart failure chronicity: acute Heart failure type: unspecified Qualified Code(s): I50.9 - Heart failure, unspecified
[2022-03-07] MEDS ORDERED: ACETAMINOPHEN 1,000 MG/100 ML VIAL IV STA (13:42)
[2022-03-07] MEDS: AZITHROMYCIN 500 MG in DEXTROSE 5% 250 ML IV SCH (13:51)
--- NOTE | 2022-03-07 14:02 | Cardiology Progress Note ---
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 Blood culture now growing staph intermedius. At this point, STEVEN would not change treatment course. Luckily, there is not appear to be any abscess tract formation around the annulus, no clear indication for urgent surgery Patient has been started on broad-spectrum antibiotic coverage and will o bviously defer to the primary team and infectious disease the choice of agents Her LV systolic function is now significantly reduced as well from baseline. Without objective finding of active ischemia would suspect this is due to catecholamine surge in the setting of significant infection, although, myocarditis cannot be ruled out at this point. Likely though, the patient is hemodynamically stable Chest x-ray improved today She is for sedation holiday and spontaneous breathing trials today. No cardiac changes at this time. Admission and Anticipated Discharge Date Admission Date: March 03, 2022 Subjective Pt seen and examined. Chart reviewed. Telemetry reviewed. Physical Exam Physical Exam: General: Intubated and sedated. No acute distress. HEENT: Normocephalic, atraumatic. Pupils equal, round and reactive to light and accommodation. Extraocular muscles are intact. Anicteric sclera. Moist mucous membranes. Neck: No JVD. No bruit. Cardiovascular: Regular. Positive S-4. Normal S-1 and S-2. No S-3. 3/6 holosystolic ejection murmur, 5th intercostal space, mid-clavicular line without radiation. No rubs. Pulmonary: Clear to auscultation bilaterally. No rales, rhonchi, or wheezing. Abdomen: Bowel sounds x 4, soft. No rebound, guarding or tenderness. No organomegaly. Extremities: No clubbing, cyanosis or edema. +2 pedal pulses bilaterally. Skin: Warm and dry. Nonspecific lower extremity skin changes. No visible track sparks. No Osler's nodes or Janeway lesions identified Results & Data ([facility]) Vital Signs (Past 12 Hours) Vital Signs Temp Pulse Resp BP Pulse Ox O2 Del Method FiO2 03/07/22 12:15 101 H 32 H 94 30 03/07/22 11:00 95 H 28 H 95 30 03/07/22 12:00 37.7 C H 87 24 98 03/07/22 12:00 121/67 03/07/22 11:00 37.7 C H 82 26 H 98 03/07/22 11:00 124/71 03/07/22 12:00 30 03/07/22 09:05 81 03/07/22 10:00 37.6 C H 78 21 99 03/07/22 10:00 125/68 03/07/22 09:00 37.5 C 87 25 H 99 03/07/22 09:00 126/71 03/07/22 08:06 133/73 03/07/22 08:06 37.5 C 105 H 31 H 88 L 03/07/22 08:00 37.6 C H 99 H 25 H 96 03/07/22 08:00 30 03/07/22 07:00 37.5 C 82 20 98 Mechanical Vent 30 03/07/22 07:00 131/69 03/07/22 07:18 81 29 H 95 30 03/07/22 06:00 37.4 C 85 21 03/07/22 06:00 132/74 03/07/22 05:00 37.4 C 87 21 03/07/22 05:00 122/69 03/07/22 04:00 37.6 C H 91 H 24 97 03/07/22 04:00 125/74 03/07/22 03:35 88 32 H 98 30 03/07/22 04:00 30 03/07/22 03:00 37.5 C 81 20 97 03/07/22 03:00 121/68 (1) Diabetes mellitus, type 2 Diabetes mellitus complication status: with unspecified complications Diabetes mellitus fpc insulin use: without online journalist use Qualified Code(s): E11.8 - Type 2 diabetes mellitus with unspecified complications
--- NOTE | 2022-03-07 15:40 | CT Scan Report ---
HEAD CT NONCONTRAST CT DOSE: 691.05 mGy.cm HISTORY: Altered mental status. TECHNIQUE: Multiaxial CT images of the head were performed without the use of intravenous contrast. A utomated exposure control was utilized for this study. A dose lowering technique was utilized adheri ng to the principles of ALARA. Comparison: Head CT 09/07/2021. Findings: Partially visualized endotracheal tube and orogastric tube noted. The paranasal sinuses and right mastoid air cells are clear. Small left mastoid effusion. The calvarium and skull base are int act. The ventricles and sulci are within normal limits. There is no mass, hematoma, midline shift, or acute infarct. Impression: No acute intracranial abnormality. Partially visualized endotracheal tube and orogastric tube noted. ACT 112: Negative or not required by law. Electronically signed by: Arnol Kenney M.D. 03/07/2022 3:39 PM
[2022-03-07] MEDS: GABAPENTIN 250 MG/5 ML 470 ML BTL NG SCH ×2 (16:29→21:04)
--- NOTE | 2022-03-07 16:55 | Electrocardiogram Report ---
Test Reason : Blood Pressure : / mmHG Vent. Rate : 075 BPM Atrial Rate : 075 BPM P-R Int : 138 ms QRS Dur : 092 ms QT Int : 430 ms P-R-T Axes : 026 040 -04 degrees QTc Int : 480 ms Normal sinus rhythm Prolonged QT Abnormal ECG When compared with ECG of 03-MAR-2022 03:50, Vent. rate has decreased BY 42 BPM Confirmed by Carlos Goodman ([id number]) on 03/07/2022 4:55:21 PM Referred By: REFERRED SELF Confirmed By:Carlos Goodman
[2022-03-08] MEDS: INSULIN ASPART PER UNIT SC SCH ×5 (00:25→18:01)
[2022-03-08] MEDS: fentaNYL citrate 2,500 MCG/250 ML BAG IV SCH (02:39)
[2022-03-08 04:23] LABS: iSTAT Art Bld Gas pCO2 Correct 34 mmHg (35-46); iSTAT Art Bld Gas pH Corrected 7.416 (7.35-7.45); iSTAT Arterial Blood Gas HCO3 22 meg/L (19-24); iSTAT Arterial Blood Gas pCO2 33 mmHg (35-46); iSTAT Arterial Blood Gas pH 7.43 (7.35-7.45); iSTAT Arterial Blood Gas pO2 116 mmHg (80-95); iSTAT Arterial Blood Gas pO2 C 120; iSTAT Carbon Dioxide 23 mmol/L (24-31); iSTAT Hematocrit 26 % (37-47); iSTAT Hemoglobin 8.8 g/dl (12.0-16.0); iSTAT Potassium 3.5 mmol/L (3.3-5.0); iSTAT Site L Radial; iSTAT Sodium 144 mmol/L (135-144)
[2022-03-08] MEDS: TUBE FEEDING WATER FLUSH OG SCH ×5 (04:46→22:59)
[2022-03-08] MEDS ORDERED: VANCOMYCIN LEVEL ONE (05:00)
[2022-03-08] MEDS: PIPERACILLIN/TAZOBACTAM 4.5 GM in DEXTROSE 5% 100 ML IV SCH (05:20)
[2022-03-08] MEDS: VANCOMYCIN HCL 1,000 MG in SODIUM CHLORIDE 0.9% 250 ML IV SCH ×2 (05:20→17:45)
[2022-03-08 05:47] LABS: Basophils # (auto) 0.06 K/uL (0-0.2); Basophils % (auto) 0.5 %; Eosinophils % (auto) 0.8 %; Hematocrit (blood only) 26.1 % (34.1-44.9); Hemoglobin 8.5 g/dl (12.0-16.0); Immature Granulocytes # (auto) 0.45 K/uL (0.00-0.02); Immature Granulocytes % (auto) 3.7 %; Lymphocytes % (auto) 17.2 %; Mean Corpuscular Hemoglobin 27.4 pg (25.0-34.0); Mean Corpuscular Hgb Conc 32.6 g/dL (32.0-36.0); Mean Corpuscular Volume 84.2 fL (80.0-100.0); Mean Platelet Volume 8.8 fL (9.4-12.3); Monocytes # (auto) 1.14 K/uL (0.24-0.82); Monocytes % (auto) 9.3 %; Neutrophils # (auto) 8.37 K/uL (1.4-6.5); Neutrophils % (auto) 68.5 %; Platelet Count 395 K/uL (130-400); RDW Coefficient of Variation 17.7 % (11.5-14.5); RDW Standard Deviation 54.6 fL (36.4-46.3); White Blood Count 12.22 K/ul (4.8-10.8)
[2022-03-08 06:37] LABS: BUN Creatinine Ratio 17.6 (10-20); Calcium 9.4 mg/dl (8.5-10.1); Creatinine Clr Calc Pharmacy 69.5 ml/min; Est GFR (African American) 77.5 ml/min; Est GFR (Non-African American) 66.8 ml/min; Magnesium 2.1 mg/dl (1.7-2.4); Phosphorus 3.8 mg/dl (2.5-4.9); Potassium 3.5 mmol/L (3.5-5.1)
[2022-03-08] MEDS ORDERED: POTASSIUM CHLORIDE / WTR 20 MEQ/100 ML PLCT IV STA ×2 (06:57→10:05)
[2022-03-08] MEDS: ICU ELECTROLYTE REPLACEMENT PROTOCOL SCH (07:02)
[2022-03-08] MEDS: IPRATROPIUM BROMIDE NEB SOLN 0.02% 2.5 ML VIAL INH SCH ×4 (07:31→19:49)
[2022-03-08] MEDS: LEVALBUTEROL 1.25MG/0.5ML NEB INH SCH ×4 (07:44→19:49)
--- NOTE | 2022-03-08 08:42 | Critical Care Progress Note ---
Date of Service March 08, 2022 Assessment & Plan (1) Tricuspid valve mass: (2) Severe tricuspid regurgitation: (3) Aortic stenosis: (4) Acute systolic (congestive) heart failure: (5) Abnormal CT scan, chest: (6) Acute respiratory failure with hypoxia: Plan Impression: 42-year-old female with history of diabetes, opiate abuse, and aortic stenosis admitted with diffuse pulmonary infiltrates and hypoxemic respiratory failure. She was intubated shortly after arrival to the ICU. Recommendations: 1. Neurologic: Extubated. Continue gabapentin, Keppra and Topamax. CT head yesterday without acute findings. 2. Cardiovascular: Mobile tricuspid 10 mm lesion concerning for vegetation however cultures are negative to date. Her hypotension is now resolved. ID consult appreciated. Zosyn ordered. Continue vancomycin. Continue caspo fungin. Jay Doyle does not feel that the patient is a good candidate for angio VAC. 3. Pulmonary: Acute hypoxemic respiratory failure secondary to what appears to be pulmonary edema. Respiratory cultures are also positive for Staphylococcus intermedius. Patient extubated 03/08/2022. 4. 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 Continue vancomycin and Zosyn. Beta glucan ordered. Continue caspofungin. Appreciate ID consultation. Will defer further antibiotic treatment to the hospitalist team. Blood cultures from 03/06/2022 are negative. Final cultures from the same day negative as well. Blood cultures from 03/04/2022 negative. Sputum cultures from 03/03/2022 for Staphylococcus intermedius. Urine cultures from 03/03/2022 with diphtheroids. HIV testing negative. 5. GI: Continue antireflux medication and tube feeds. 6. Renal: ICU electrolyte replacement protocol. No significant issues. 7. Heme-onc: Mild anemia. No indication for transfusion currently. Continue to trend. 8. Endocrine: Glycemic control per protocol. CRITICAL CARE TIME - I have personally spent 38 minutes of critical care time in the direct management of this patient. This is a life/limb threatening event. This includes time spent evaluating patient, direct bedside care, chart review, placing orders, interpretation of diagnostic studies, discussion with consultants, patient, and family members, as well as other required patient management activities. This time is exclusive of all separately billable procedures, and teaching time and separate from and in addition to any other critical care service time. Admission and Anticipated Discharge Date Admission Date: March 03, 2022 Subjective Patient was following commands on sedation vacation and doing well on the spontaneous breathing trial. She was extubated to aerosolized oxygen mask. He is doing well at this time. Hemodynamically stable. Review of Systems Review of Systems: All systems reviewed & are unremarkable except as noted in HPI & below Physical Exam Physical Exam: Constitutional: Appears older than stated age. Mild distress. Eyes: Pupils are equal round and reactive to light. Conjunctivae are normal. Anicteric sclera. Ears nose, mouth and throat: Mallampati class 2. Normal posterior oropharynx. Uvula is midline. Neck: Trachea is midline. Visual inspection is normal. Respiratory: Diminished bilaterally. No wheezes. Cardiovascular: Regular rate and rhythm. No murmurs. No edema. Gastrointestinal: Normal bowel sounds, soft, nontender and nondistended. No hepatosplenomegaly noted. Musculoskeletal: No cyanosis. Patient is able to move all extremities. Skin: No rashes, warm dry and intact. Neurologic: No obvious focal neurological deficits seen. Psychiatric: Anxious appearing. Oriented to person. Results & Data Results & Data ([facility]) Vital Signs (Past 12 Hours) Vital Signs Temp Pulse Resp BP Pulse Ox O2 Del Method FiO2 03/08/22 08:00 38.4 C H 94 H 39 H 96 Aerosol Mask 30 03/08/22 08:00 142/73 H 03/08/22 07:00 38.2 C H 91 H 31 H 99 Mechanical Vent 30 03/08/22 07:00 158/86 H 03/08/22 08:15 94 H 03/08/22 08:00 90 32 H 100 30 03/08/22 06:00 38.0 C H 86 27 H 100 03/08/22 06:00 159/76 H 03/08/22 05:00 37.9 C H 73 33 H 100 03/08/22 05:00 149/73 H 03/08/22 04:00 81 22 100 Mechanical Vent 30 03/08/22 04:00 37.7 C H 154/79 H 03/08/22 03:00 101 H 17 99 03/08/22 03:00 151/78 H 03/08/22 04:00 30 03/08/22 04:29 82 34 H 100 30 03/08/22 02:00 88 33 H 100 03/08/22 02:00 148/78 H 03/08/22 01:00 100 H 38 H 100 03/08/22 01:00 146/78 H 03/08/22 00:00 37.6 C H 84 33 H 100 03/08/22 00:00 159/75 H 03/08/22 00:00 30 03/07/22 23:30 85 03/07/22 23:00 88 28 H 100 03/07/22 23:00 147/78 H 03/07/22 22:00 94 H 34 H 100 03/07/22 22:00 144/84 H 03/07/22 22:44 34 H 30 03/07/22 21:00 37.8 C H 96 H 35 H 100 Mechanical Vent 30 03/07/22 21:00 157/83 H Coding Level of Care Code Critical Care 1st 30-74 mins Diagnoses Tricuspid valve mass I07.8 Severe tricuspid regurgitation I07.1 Aortic stenosis I35.0 Acute systolic (congestive) heart failure I50.[address] scan, chest R93.89 Acute respiratory failure with hypoxia J96.01 Time Spent (min) 38
[2022-03-08] MEDS: ATORVASTATIN 40 MG TAB PO SCH (10:07)
[2022-03-08] MEDS: ASPIRIN 81 MG CHEW PO SCH (10:07)
[2022-03-08] MEDS: CLOPIDOGREL BISULFATE 75 MG TAB PO SCH (10:07)
[2022-03-08] MEDS: FAMOTIDINE 20 MG TAB PO SCH (10:08)
[2022-03-08] MEDS: SENNOSIDES 8.8 MG/5 ML UDC PO SCH (10:08)
[2022-03-08] MEDS: GABAPENTIN 250 MG/5 ML 470 ML BTL NG SCH ×3 (10:08→20:51)
[2022-03-08] MEDS: TOPIRAMATE 25 MG TAB PO SCH ×2 (10:08→20:51)
[2022-03-08] MEDS: POLYETHYLENE (MIRALAX) 17 GM PACK PO SCH (10:08)
[2022-03-08] MEDS: ESCITALOPRAM OXALATE 20 MG TAB PO SCH (10:08)
[2022-03-08] MEDS: DOCUSATE SODIUM SYRUP 100 MG/10 ML UDC PO SCH ×2 (10:08→20:51)
[2022-03-08] MEDS: ENOXAPARIN INJ 40 MG/0.4 ML SYR SQ SCH (10:12)
[2022-03-08] MEDS: ACETAMINOPHEN 1,000 MG/100 ML VIAL IV PRN (10:13)
[2022-03-08] MEDS: CASPOFUNGIN IV SCH (10:21)
[2022-03-08] MEDS: SODIUM CHLORIDE 0.9% IV SCH (10:21)
[2022-03-08] MEDS: levETIRAcetam 500 MG in 0.9 % SODIUM CHLORIDE 100 ML IV SCH ×2 (10:24→22:59)
--- NOTE | 2022-03-08 10:55 | Pharmacy Report ---
Pharmacy PK ABX Note - Date of Service March 08, 2022 - Assessment and Plan Assessment 42 year old F receiving vancomycin, meropenem, caspofungin, and azithromycin for treatment of suspected tricuspid valve endocarditis and multifocal PNA. Blood cultures negative to date, sputum culture (+) Staph intermedius, methicillin sensitive (MRSA nasal negative). Fungal culture/[id number] pending. Mycoplasma, Brucella, Bartonella serology pending. Extubated this AM. Resolving AJIT/renal function stable. ID consulted. Day #5 of antimicrobial therapy. Plan 03/08:Vancomycin * Trough level this AM 16.9mcg/mL (true trough), AUC/YENNI-580mg/L.hr - therapeutic * Continue vancomycin 1gm IV q12h * Repeat level ~48hr or sooner if clinically indicated Pharmacy will continue to follow and will adjust dose/frequency as necessary. Thank you. Pharmacy has transitioned to AUC monitoring for vancomycin. AUC/YENNI is the preferred PK/PD target and is associated with decreased risk of nephrotoxicity compared to traditional trough targets.
[2022-03-08] MEDS: MEROPENEM 2,000 MG in 0.9 % SODIUM CHLORIDE 58 ML IV SCH ×2 (11:02→17:45)
[2022-03-08] MEDS: FAMOTIDINE 20 MG in SYRINGE 3 ML IV SCH ×2 (11:02→20:51)
--- NOTE | 2022-03-08 11:06 | Hospitalist Progress Note ---
Date of Service March 08, 2022 Assessment & Plan (1) Acute respiratory failure with hypoxia: Plan: - Mechanical ventilation support - Present on admission with worsening SOB, congestion and productive cough - CXR showed cardiomegaly. Multifocal airspace opacities compatible pneumonia. - CTA chest showed no evidence of pulmonary embolus in the main, lobar, or segmental pulmonary arteries. - Currently sedated and intubated on vent support - Sputum cx grew staph intermedius - concern for endocarditis but negative blood cultures - [facility] redrawer evaluated and do not feel there is vegetation and even so, not candidate for AngioVac procedure - patient successfully extubated 03/08/2022 and tolerating well - supplemental oxygen to maintain SpO2 >92% (2) Multifocal pneumonia: Plan: - seen on CXR and CT chest - vent management as above - wean as tolerated - on broad abx with vanc, Zosyn, caspofungin per ID - follow up ID - blood cultures negative to date - improving on CXR 03/08/2022 and extubated - respiratory status improving (3) Sepsis: Plan: - Met sepsis criteria on admission with tachycardia, leukocytosis, elevate RR - WBC 31.9 K, now trending down - lactic acid and procalcitonin elevated on admission - Pressor discontinued - BP maintaining - Blood cx on 03/03 and 03/04 no growth to date - ID consult on board - Currently on azithromycin, caspofungin, IV Zosyn and Vanco - spiking fevers on above - escalated to meropenem, Zosyn dc'd 03/08/2022 - repeat blood cultures ordered 03/08/2022 (4) Elevated troponin I level: Plan: - Mostly demand ischemia due to acute respiratory failure - troponin on admisison 45.4 then increased to 91.7 - Cardiology on board - ECHO showed ECHO showed severely reduced LV systolic function with severe global hypokinesis with EF 30-35% - Continue aspirin, plavix and statin - no cardiology intervention at this time - Metoprolol discontinued due to Low BP - will consider restarting per Cardiology - Continue monitor closely (5) CHF (congestive heart failure): Plan: - BNP 516 on admission - Received IV lasix - ECHO showed severely reduced LV systolic function with severe global hypokinesis with EF 30-35% - cardiology on board - Continue Monitor I/O (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 there is not appear to be any abscess tract formation around the annulus, no clear indication for urgent surgery - Blood cx on 03/03 and 03/04 no growth - ID on board - Currently on broad spectrum abx with azithromycin, caspofungin, IV Zosyn and Vanco - Case discussed with cardiology Dr. Alexis Knight at [facility] for possible transfer for angio VAC treatment of endocarditis - follow up with CTS at [facility] does not believe this is vegetation but difficult to assess, STEVEN would be definitive, however, AngioVac procedure would not benefit patient and so patient will not be trans ferred at this time - will continue empiric treatment with IV abx as above - consider STEVEN if positive blood cultures or clinical deterioration Plan DVT ppx: heparin SC Code Status: Full Code Dispo: ICU Dylon Aldrich MD [facility] Medicine Admission and Anticipated Discharge Date Admission Date: March 03, 2022 Subjective Patient with DM, OUD, admitted for acute hypoxic respiratory failure and diffuse pulmonary infiltrates on mechancial ventelation. On vancomycin, zosyn, capsofungin per ID. Question of endocarditis, evaluated by [facility] Cardiology who do not feel patient would benefit from intervention on potential vegetation and not accepting transfer at this time. Blood cultures have been negative. Spiking fevers, zosyn changed to meropenem 03/08/2022, repeat blood cultures 03/08/2022. Extubated successfully 03/08/2022. Patient successfully extubated 03/08/2022 to face mask. Patient following commands but still lethargic. Spiking fevers to 38.4C in last 24 hours, upgraded to meropenem, repeat blood cultures ordered. Review of Systems Review of Systems: Unobtainable due to reduced consciousness Physical Exam Physical Exam: General- lethargic but following commands Head- atraumatic Eyes- PERRL ENT- Intubated Neck- supple, no JVD Lungs- on face mask, extubated, no wheezing, but with course breath sounds throughout Heart- regular rhythm; +systolic murmur Abdomen- normal bowel sounds, soft, nontender Extremities- no calf tenderness Neuro- following simple commands, lethargic still Skin- warm & dry, No Osler's nodes or [place] lesions identified Results & Data Results & Data ([facility]) Vital Signs (Past 12 Hours) Vital Signs Temp Pulse Resp BP Pulse Ox O2 Del Method FiO2 03/08/22 08:00 38.4 C H 94 H 39 H 96 Aerosol Mask 30 03/08/22 08:00 142/73 H 03/08/22 07:00 38.2 C H 91 H 31 H 99 Mechanical Vent 30 03/08/22 07:00 158/86 H 03/08/22 08:15 94 H 03/08/22 08:00 90 32 H 100 30 03/08/22 06:00 38.0 C H 86 27 H 100 03/08/22 06:00 159/76 H 03/08/22 05:00 37.9 C H 73 33 H 100 03/08/22 05:00 149/73 H 03/08/22 04:00 81 22 100 Mechanical Vent 30 03/08/22 04:00 37.7 C H 154/79 H 03/08/22 03:00 101 H 17 99 03/08/22 03:00 151/78 H 03/08/22 04:00 30 03/08/22 04:29 82 34 H 100 30 03/08/22 02:00 88 33 H 100 03/08/22 02:00 148/78 H 03/08/22 01:00 100 H 38 H 100 03/08/22 01:00 146/78 H 03/08/22 00:00 37.6 C H 84 33 H 100 03/08/22 00:00 159/75 H 03/08/22 00:00 30 03/07/22 23:30 85 03/07/22 23:00 88 28 H 100 03/07/22 23:00 147/78 H Diagnostic Findings Laboratory Results WBC 12.22 K/ul (4.8-10.8) H 03/08/22 05:17 RBC 3.10 M/uL (3.93-5.22) L 03/08/22 05:17 Hgb 8.5 g/dl (12.0-16.0) L 03/08/22 05:17 POC Hgb 8.8 g/dl (12.0-16.0) L 03/08/22 04:09 Hct 26.1 % (34.1-44.9) L 03/08/22 05:17 POC Hct 26 % (37-47) L 03/08/22 04:09 MCV 84.2 fL (80.0-100.0) 03/08/22 05:17 MCH 27.4 pg (25.0-34.0) 03/08/22 05:17 MCHC 32.6 g/dL (32.0-36.0) 03/08/22 05:17 RDW Std Deviation 54.6 fL (36.4-46.3) H 03/08/22 05:17 RDW Coeff of Hannah 17.7 % (11.5-14.5) H 03/08/22 05:17 Plt Count 395 K/uL (130-400) 03/08/22 05:17 MPV 8.8 fL (9.4-12.3) L 03/08/22 05:17 Immature Gran % (Auto) 3.7 % 03/08/22 05:17 Neut % (Auto) 68.5 % 03/08/22 05:17 Lymph % (Auto) 17.2 % 03/08/22 05:17 Platte % (Auto) 9.3 % 03/08/22 05:17 Eos % (Auto) 0.8 % 03/08/22 05:17 Baso % (Auto) 0.5 % 03/08/22 05:17 Neut # (Auto) 8.37 K/uL (1.4-6.5) H 03/08/22 05:17 Lymph # (Auto) 2.10 K/uL (1.2-3.4) 03/08/22 05:17 [place]atte # (Auto) 1.14 K/uL (0.24-0.82) H 03/08/22 05:17 Eos # (Auto) 0.10 K/uL (0-0.50) 03/08/22 05:17 Baso # (Auto) 0.06 K/uL (0-0.2) 03/08/22 05:17 Immature Gran # (Auto) 0.45 K/uL (0.00-0.02) H 03/08/22 05:17 Neutrophils % (Manual) 94 % 03/03/22 04:20 Lymphocytes % (Manual) 2 % 03/03/22 04:20 Monocytes % (Manual) 3 % 03/03/22 04:20 Basophils % (Manual) 1 % 03/03/22 04:20 Neutrophils # (Manual) 30.06 K/uL (1.4-6.5) H 03/03/22 04:20 Total Absolute Neuts 30.06 K/uL (1.4-6.5) H 03/03/22 04:20 Lymphocytes # (Manual) 0.64 K/uL (1.2-3.4) L 03/03/22 04:20 Total Abs Lymphocytes 0.64 K/uL (1.2-3.4) L 03/03/22 04:20 Monocytes # (Manual) 0.96 K/uL (0.24-0.82) H 03/03/22 04:20 Basophils # (Manual) 0.32 K/uL (0-0.2) H 03/03/22 04:20 RBC Morphology Unremarkable 03/07/22 04:00 Echinocytes 2+ 03/03/22 04:20 Haptoglobin 211 mg/dL (43-212) 03/04/22 10:10 APTT 31.3 Seconds (21.0-31.0) H 03/03/22 04:20 PTT Ratio 1.1 03/03/22 04:20 Sample Site L Radial 03/08/22 04:09 POC pH 7.43 (7.35-7.45) 03/08/22 04:09 POC pCO2 33 mmHg (35-46) L 03/08/22 04:09 POC pO2 116 mmHg (80-95) H 03/08/22 04:09 POC HCO3 22 quinn/L (19-24) 03/08/22 04:09 POC Total CO2 23 mmol/L (24-31) L 03/08/22 04:09 POC Base Excess -3.0 quinn/L (-9-1.8) 03/08/22 04:09 ABG pH (Temp Correct) 7.416 (7.35-7.45) 03/08/22 04:09 ABG pCO2 (Temp Corrct 34 mmHg (35-46) L 03/08/22 04:09 POC ABG pO2 at Pt Temp 120 03/08/22 04:09 POC ABG O2 Sat 99.0 % (90-95) H 03/08/22 04:09 Caesar Test NA 11/10/22 04:09 VBG pH Cancelled 03/03/22 04:20 VBG pCO2 Cancelled 03/03/22 04:20 VBG pO2 Cancelled 03/03/22 04:20 VBG HCO3 Cancelled 03/03/22 04:20 VBG O2 Saturation Cancelled 03/03/22 04:20 VBG Base Excess Cancelled 03/03/22 04:20 Barometric Pressure Cancelled 03/03/22 04:20 O2 Delivery Device Ventilator 03/08/22 04:09 POC O2 Rate 16 03/08/22 04:09 POC FiO2 30 % 03/07/22 05:24 Tidal Volume 330 03/03/22 10:06 PEEP 5 03/08/22 04:09 POC Sodium 144 mmol/L (135-144) 03/08/22 04:09 Sodium 143 mmol/L (136-145) 03/08/22 05:17 POC Potassium 3.5 mmol/L (3.3-5.0) 03/08/22 04:09 Potassium 3.5 mmol/L (3.5-5.1) 03/08/22 05:17 Chloride 111 mmol/L (98-107) H 03/08/22 05:17 Carbon Dioxide 22 mmol/L (21-32) 03/08/22 05:17 Anion Gap 10 (3-11) 03/08/22 05:17 BUN 18 mg/dl (6-23) 03/08/22 05:17 Creatinine 1.02 mg/dl (0.6-1.2) 03/08/22 05:17 Est Cr Clr Drug Dosing 69.5 ml/min 03/08/22 05:17 Est GFR ( Amer) 77.5 ml/min 03/08/22 05:17 Est GFR (Non-Af Amer) 66.8 ml/min 03/08/22 05:17 BUN/Creatinine Ratio 17.6 (10-20) 03/08/22 05:17 Glucose 118 mg/dl (70-99(Fasting)) H 03/08/22 05:17 POC Glucose 139 mg/dl (70-99) H 03/08/22 08:05 POC Glucose (other) 128 mg/dl (70-99) H 03/03/22 20:26 Estimat Average Glucose 117 mg/dl 03/07/22 04:00 Hemoglobin A1c 5.7 % (4.5-5.6) H 03/07/22 04:00 Osmolality 269 mOsm/kg (280-300) L 03/03/22 06:08 Lactate 2.1 mmol/L (0.4-2.0) H* 03/03/22 12:27 Calcium 9.4 mg/dl (8.5-10.1) 03/08/22 05:17 Phosphorus 3.8 mg/dl (2.5-4.9) 03/08/22 05:17 Magnesium 2.1 mg/dl (1.7-2.4) 03/08/22 05:17 Total Bilirubin 0.5 mg/dl (0.2-1.0) 03/06/22 04:31 Direct Bilirubin 0.3 mg/dl (0-0.2) H 03/03/22 04:20 AST 26 U/L (13-39) 03/06/22 04:31 ALT 14 U/L (7-52) 03/06/22 04:31 Alkaline Phosphatase 114 U/L (34-104) H 03/06/22 04:31 Lactate Dehydrogenase 619 U/L (86-244) H 03/04/22 10:10 Troponin I High Sens 91.7 pg/ml (0-14) H* D 03/03/22 06:08 B-Natriuretic Peptide 516 pg/ml (0-100) H 03/03/22 09:38 Total Protein 6.4 gm/dl (6.0-8.3) 03/06/22 04:31 Albumin 3.4 gm/dl (3.4-5.0) 03/06/22 04:31 Globulin 3.0 gm/dl (2.5-4.0) 03/06/22 04:31 Albumin/Globulin Ratio 1.1 (0.9-2) 03/06/22 04:31 Triglycerides 193 mg/dl (0-150) H 03/07/22 09:47 Procalcitonin 0.46 ng/ml (0-0.5) 03/04/22 10:10 TSH 0.451 uIu/ml (0.300-4.500) 03/03/22 06:08 Urine Color Yellow 03/03/22 05:25 Urine Appearance Cloudy (Clear) A 03/03/22 05:25 Urine pH 5.0 (4.5-7.5) 03/03/22 05:25 Ur Specific [place] 1.012 (1.000-1.030) 03/03/22 05:25 Urine Protein Negative (Negative) 03/03/22 05:25 Urine Glucose (UA) Negative (Negative) 03/03/22 05:25 Urine Ketones Negative (Negative) 03/03/22 05:25 Urine Blood Negative (Negative) 03/03/22 05:25 Urine Nitrite Negative (Negative) 03/03/22 05:25 Urine Bilirubin Negative (Negative) 03/03/22 05:25 Urine Urobilinogen Negative (Negative) 03/03/22 05:25 Ur Leukocyte Esterase Trace (Negative) H 03/03/22 05:25 Urine WBC (Auto) 1-5 /hpf (0-5) 03/03/22 05:25 Urine RBC (Auto) 0-4 /hpf (0-4) 03/03/22 05:25 U Hyaline Cast (Auto) 1-5 /lpf (0-5) 03/03/22 05:25 U Epithel Cells (Auto) >30 /lpf (0-5) H 03/03/22 05:25 Urine Bacteria (Auto) 1+ (Negative) H 03/03/22 05:25 Urine Osmolality 258 mOsm/kg (500-800) L 03/03/22 11:20 Ur Random Sodium 50 mmol/L 03/03/22 11:20 Nasal Screen MRSA (PCR) Negative (Negative) 03/03/22 08:07 Vancomycin Trough 16.9 mcg/ml (10-20) 03/08/22 05:17 Random Vancomycin 21.4 mcg/ml (10-20) H 03/07/22 04:00 Ur Butalbital Confirm Cancelled 03/04/22 13:10 Urine Opiates Screen Cancelled 03/04/22 13:10 Urine Opiates Screen Neg (Neg) 03/04/22 13:10 U Codeine Confrm GC/MS Cancelled 03/04/22 13:10 Ur Morphine (GC/MS) Cancelled 03/04/22 13:10 Ur Hydrocodone (GC/MS) Cancelled 03/04/22 13:10 U Norhydrocodone Conf Cancelled 03/04/22 13:10 Ur Oxycodone Screen Cancelled 03/04/22 13:10 U Noroxycodone Confirm Cancelled 03/04/22 13:10 Ur Oxycodone GC/MS Cancelled 03/04/22 13:10 U Oxymorphone GC/MS Cancelled 03/04/22 13:10 EDDP Confirm Cancelled 03/04/22 13:10 Ur Methadone, Qual Cancelled 03/04/22 13:10 Ur Methadone, Qual Neg (Neg) 03/04/22 13:10 Ur Methadone Cancelled 03/04/22 13:10 Ur Hydromorphone (GC/MS) Cancelled 03/04/22 13:10 Urine Barbiturates Cancelled 03/04/22 13:10 Urine Barbiturates Neg (Neg) 03/04/22 13:10 Ur Phencyclidine Scrn Cancelled 03/04/22 13:10 Ur Phencyclidine (PCP) Neg (Neg) 03/04/22 13:10 Urine PCP Confirm Cancelled 03/04/22 13:10 Ur Amphetamines Screen Cancelled 03/04/22 13:10 U Amphetamines Confirm Cancelled 03/04/22 13:10 U Amphetamin/Meth Scrn Neg (Neg) 03/04/22 13:10 Methamphetamine GC/MS Cancelled 03/04/22 13:10 MDMA (Ecstasy) Screen Neg (Neg) 03/04/22 13:10 Ur Amobarbital GC/MS Cancelled 03/04/22 13:10 U Pentobarbital GC/MS Cancelled 03/04/22 13:10 U Phenobarbital GC/MS Cancelled 03/04/22 13:10 U Secobarbital GC/MS Cancelled 03/04/22 13:10 U OH-Alprazolam Confrm NEGATIVE ng/mL (<25) 03/04/22 13:10 U [id number] GC/MS Cancelled 03/04/22 13:10 U Benzodiazepines Scrn Cancelled 03/04/22 13:10 U Benzodiazepines Scrn Pos (Neg) H 03/04/22 13:10 7-Amino Clonazepam NEGATIVE ng/mL (<25) 03/04/22 13:10 U 7-Aminoclonazepam Screen Cancelled 03/04/22 13:10 Ur Nordiazepam Confirm NEGATIVE ng/mL (<50) 03/04/22 13:10 Ur Nordiazepam GC/MS Cancelled 03/04/22 13:10 U OH-ethylflurazepam NEGATIVE ng/mL (<50) 03/04/22 13:10 U OH-ethylfluraz GC/MS Cancelled 03/04/22 13:10 U Lorazepam Cnf GC/MS Cancelled 03/04/22 13:10 U Lorazepam Cnf GC/MS NEGATIVE ng/mL (<50) 03/04/22 13:10 U Oxazepam Confm GC/MS Cancelled 03/04/22 13:10 U Oxazepam Confm GC/MS NEGATIVE ng/mL (<50) 03/04/22 13:10 Ur Temazepam Confirm NEGATIVE ng/mL (<50) 03/04/22 13:10 Ur Temazepam Cnf GC/MS Cancelled 03/04/22 13:10 U a-Hydroxytriaz GC/MS Cancelled 03/04/22 13:10 U OH-Triazolam Confirm NEGATIVE ng/mL (<50) 03/04/22 13:10 U [id number] Cancelled 03/04/22 13:10 U OH-Midazolam Confirm 408 ng/mL (<50) H 03/04/22 13:10 Urine Cocaine Cancelled 03/04/22 13:10 Ur Cocaine Metabolite Neg (Neg) 03/04/22 13:10 U Cocaine Metab Confirm Cancelled 03/04/22 13:10 Tetrahydrocannabinol Cancelled 03/04/22 13:10 U Marijuana (THC) Screen Cancelled 03/04/22 13:10 U Marijuana (THC) Screen Neg (Neg) 03/04/22 13:10 Drug Screen Comment Cancelled 03/04/22 13:10 Drug Screen Comment SEE NOTE 03/04/22 13:10 SARS-CoV-2 (PCR) NEGATIVE (Negative) 03/03/22 04:00 HIV (1&2) Ag & Ab Conf NON-REACTIVE (NON-REACTIVE) 03/06/22 10:31 Influenza Type A (PCR) Negative (Neg) 03/03/22 04:00 Influenza Type B (PCR) Negative (Neg) 03/03/22 04:00 RSV (RT-PCR) Negative (Neg) 03/03/22 04:00 Reference Lab Cancelled 03/04/22 13:10 Impressions Chest CTA 03/06/22 15:47 CT ANGIOGRAM OF THE CHEST CLINICAL HISTORY: Respiratory failure. COMPARISON STUDY: Chest x-ray dated 03/06/2022. Chest CT dated 07/10/2021. TECHNIQUE: Following the IV administration of 119 cc of Optiray 320, CT angiogram of the chest was performed from the upper abdomen to the thoracic inlet utilizing the pulmonary embolus protocol. Images are reviewed in the axial, sagittal, and coronal planes. 3-D MIPS images are created and assessed. IV contrast was administered without complication. A dose lowering technique was utilized adhering to the principles of ALARA. The examination is severely degraded by motion artifact. There is also streak artifact from the arms which could not be elevated above the chest. CT DOSE: 779.91 mGy.cm FINDINGS: Thyroid: The thyroid gland is enlarged and heterogeneous. Low-attenuation nodules measure up to 1.6 cm. Thoracic aorta: There is mild atherosclerotic calcification of the thoracic aorta, which is normal in caliber and demonstrates standard 3-vessel arch anatomy. No dissection is seen. Pulmonary vasculature: The pulmonary trunk is normal in caliber. There are no filling defects identified in main, lobar, or segmental pulmonary branches to suggest pulmonary embolus. Evaluation of the subsegmental branches is degraded by motion artifact. Heart: A left subclavian central venous catheter is in place. The heart is mildly enlarged and without pericardial effusion. The coronary arteries are densely calcified. Lungs and pleural spaces: An endotracheal tube terminates at the level of the misti. Extensive/diffuse groundglass consolidation is seen throughout both lungs. Foci of air trapping are seen at the left lung base. There is associated intralobular septal thickening. Mediastinum: There is bulky mediastinal lymphadenopathy. A subcarinal node measures 3.8 cm short axis. Prevascular nodes measure up to 1.4 cm short axis. Sameera: There is bilateral hilar adenopathy. Hilar nodes measure up to 1.6 cm in short axis. Axillae: There is no axillary lymphadenopathy. Upper abdomen: An enteric tube is in place. This extends below the diaphragm into the stomach. The liver is enlarged and steatotic. Reflux of contrast into the IVC and hepatic veins suggest cardiac dysfunction. The spleen is enlarged. Skeletal structures: The skeletal structures are osteopenic. There is a mild superior endplate compression deformity of L1. No lytic or blastic bony lesions are seen. IMPRESSION: 1. Streak and motion compromised examination 2. An endotracheal tube terminates at the level of the misti. Consider repositioning. 3. There is no evidence of pulmonary embolus in the main, lobar, or segmental pulmonary arteries. 4. Cardiomegaly and coronary artery calcification. 5. Groundglass consolidation is seen throughout both lungs with associated intralobular septal thickening. Differential considerations include pulmonary edema, multifocal pneumonia, and/or ARDS. Clinical correlation will be essential and radiographic follow-up to resolution is recommended. 6. There is bulky mediastinal and hilar lymphadenopathy. Clinical correlation required. 7. Hepatomegaly with hepatic steatosis. 8. Splenomegaly. 9. Enlarged multinodular thyroid gland. Nonemergent/outpatient thyroid ultrasound is recommended in follow-up. 10. Additional findings as above. ACT 112: Negative or not required by law. Electronically signed by: Ja Villanueva M.D. 03/06/2022 5:[address] 03/07/22 14:[address] DOSE: 691.05 mGy.cm HISTORY: Altered mental status. TECHNIQUE: Multiaxial CT images of the head were performed without the use of intravenous contrast. Automated exposure control was utilized for this study. A dose lowering technique was utilized adhering to the principles of ALARA. Comparison: Head CT 09/07/2021. Findings: Partially visualized endotracheal tube and orogastric tube noted. The paranasal sinuses and right mastoid air cells are clear. Small left mastoid effusion. The calvarium and skull base are intact. The ventricles and sulci are within normal limits. There is no mass, hematoma, midline shift, or acute infarct. Impression: No acute intracranial abnormality. Partially visualized endotracheal tube and orogastric tube noted. ACT 112: Negative or not required by law. Electronically signed by: Arnol Kenney M.D. 03/07/2022 3:39 PM Medications Administered Current Inpatient Medications Acetaminophen (Acetaminophen 500 Mg Tab) 500 mg PO Q6H PRN PRN Reason: pain/fever Stop: 04/02/22 07:55 Last Admin: 03/06/22 17:38 Dose: 500 mg Aspirin (Aspirin 81 Mg Chew) 81 mg PO DAILY WILMA Stop: 04/02/22 10:14 Last Admin: 03/08/22 10:07 Dose: Not Given Atorvastatin Calcium (Atorvastatin 40 Mg Tab) 80 mg PO DAILY WILMA Stop: 04/02/22 08:59 Last Admin: 03/08/22 10:07 Dose: Not Given Clopidogrel Bisulfate (Clopidogrel Bisulfate 75 Mg Tab) 75 mg PO DAILY WILMA Stop: 04/02/22 08:59 Last Admin: 03/08/22 10:07 Dose: Not Given Dextrose (Dextrose 50% 50 Ml Syringe) 25 - 50 ml IV UD PRN; Protocol PRN Reason: Hypoglycemia Protocol Stop: 04/02/22 07:55 Docusate Sodium (Docusate Sodium Syrup 100 Mg/10 Ml Udc) 100 mg PO BID WILMA Stop: 04/05/22 20:59 Last Admin: 03/08/22 10:08 Dose: Not Given Enoxaparin Sodium (Enoxaparin Inj 40 Mg/0.4 Ml Syr) 40 mg SQ QAM WILMA Stop: 04/07/22 08:59 Last Admin: 03/08/22 10:12 Dose: 40 mg Escitalopram Oxalate (Escitalopram Oxalate 20 Mg Tab) 20 mg PO DAILY WILMA Stop: 04/02/22 08:59 Last Admin: 03/08/22 10:08 Dose: Not Given Famotidine (Famotidine 20 Mg Tab) 20 mg PO BID WILMA Stop: 04/02/22 20:59 Last Admin: 03/08/22 10:08 Dose: Not Given Gabapentin (Gabapentin 250 Mg/5 Ml 470 Ml Btl) 300 mg NG TID WILMA Stop: 04/02/22 13:59 Last Admin: 03/08/22 10:08 Dose: Not Given Glucagon (Glucagon For Inj 1 Mg Vial) 1 mg SQ UD PRN; Protocol PRN Reason: Hypoglycemia Protocol Stop: 04/02/22 07:55 Glucose (Glucose 40% Gel 15 Gm Tube) 15 - 30 gm PO UD PRN; Protocol PRN Reason: Hypoglycemia Protocol Stop: 04/02/22 07:55 Glucose (Glucose 10 Tab/Tube) 4 - 8 tab PO UD PRN; Protocol PRN Reason: Hypoglycemia Treatment Stop: 04/02/22 07:55 Vancomycin HCl 1,000 mg/ (Sodium Chloride) 270 mls @ 200 mls/hr IV Q12H WILMA; Protocol Stop: 04/15/22 17:59 Last Infusion: 03/08/22 06:55 Dose: Infused Caspofungin 150 mg/ Sodium (Chloride) 310 mls @ 260 mls/hr IV Q24H [facility] Stop: 04/17/22 10:29 Last Admin: 03/08/22 10:21 Dose: 260 mls/hr Azithromycin 500 mg/ Dextrose 255 mls @ 127.5 mls/hr IV Q24H [facility] Stop: 03/13/22 13:59 Last Infusion: 03/07/22 16:30 Dose: Infused Acetaminophen (Ofirmev) 1,000 mg in 100 mls @ 400 mls/hr IV Q8H PRN PRN Reason: Fever Stop: 03/10/22 13:49 Last Infusion: 03/08/22 10:28 Dose: Infused Meropenem 2,000 mg/ Sodium (Chloride) 100 mls @ 200 mls/hr IV Q8H [facility]; Protocol Stop: 04/19/22 09:59 Last Admin: 03/08/22 11:02 Dose: 200 mls/hr Levetiracetam 500 mg/ Sodium (Chloride) 105 mls @ 420 mls/hr IV Q12H [facility] Stop: 04/07/22 10:14 Last Admin: 03/08/22 10:24 Dose: 420 mls/hr Potassium Chloride (K Jonatan / Wtr) 20 meq in 100 mls @ 50 mls/hr IV TODAY@1006 STA Stop: 03/08/22 12:04 Last Admin: 03/08/22 10:12 Dose: 50 mls/hr Famotidine 20 mg/ Syringe 5 mls @ 2.5 mls/min IV BID [facility] Stop: 04/07/22 10:29 Last Admin: 03/08/22 11:02 Dose: 2.5 mls/min Insulin Aspart (Insulin Aspart Per Unit) 0 units SC Q4 [facility]; Protocol Stop: 04/04/22 07:29 Last Admin: 03/08/22 08:13 Dose: Not Given Ipratropium [place] (Ipratropium [place] Neb Soln 0.02% 2.5 Ml Vial) 0.5 mg INH QIDR WILMA Stop: 04/02/22 10:59 Last Admin: 03/08/22 10:53 Dose: 0.5 mg Levalbuterol HCl (Levalbuterol 1.25mg/0.5ml Neb) 1.25 mg INH QIDR [facility] Stop: 04/02/22 10:59 Last Admin: 03/08/22 10:53 Dose: 1.25 mg Levetiracetam (Levetiracetam Soln 500 Mg/5 Ml Udp) 500 mg NG Q12 [facility] Stop: 04/02/22 10:14 Last Admin: 03/08/22 10:08 Dose: Not Given Miscellaneous (Carbohydrates For Hypoglycemia ) 15 - 30 gm PO UD PRN PRN Reason: Hypoglycemia Protocol Stop: 04/02/22 07:55 Miscellaneous (Icu Electrolyte Replacement Protocol) 1 each N/A BID@06,18 [facility]; Protocol Stop: 03/10/22 17:59 Last Admin: 03/08/22 07:02 Dose: 1 each Miscellaneous Information (Vancomycin Consult Active) 1 each N/A UD PRN PRN Reason: Consult Stop: 04/03/22 09:06 Miscellaneous Information (Pharmacy Glycemic Mgmt Consult) 1 each N/A UD PRN; Protocol PRN Reason: Consult Stop: 04/04/22 09:42 Nutritional Formula (Peptamen Intense Vhp 1.0 Eduard 1,000 Ml Bag) 1,000 ml OG UD [facility]; Protocol Stop: 04/03/22 10:44 Last Admin: 03/06/22 23:35 Dose: 1,000 ml Polyethylene Glycol (Polyethylene (Miralax) 17 Gm Pack) 17 gm PO DAILY [facility] Stop: 04/05/22 09:34 Last Admin: 03/08/22 10:08 Dose: Not Given Sennosides (Sennosides 8.8 Mg/5 Ml Udc) 8.8 mg PO QAM [facility] Stop: 04/05/22 09:44 Last Admin: 03/08/22 10:08 Dose: Not Given Sterile Water (Tube Feeding Water Flush) 30 ml OG Q4H [facility] Stop: 04/03/22 10:44 Last Admin: 03/08/22 11:02 Dose: Not Given Topiramate (Topiramate 25 Mg Tab) 25 mg PO BID [facility] Stop: 04/02/22 08:59 Last Admin: 03/08/22 10:08 Dose: Not Given (1) CHF (congestive heart failure) Heart failure chronicity: acute Heart failure type: unspecified Qualified Code(s): I50.9 - Heart failure, unspecified
--- NOTE | 2022-03-08 12:41 | XRay Report ---
SINGLE VIEW CHEST CLINICAL HISTORY: Respiratory failure. FINDINGS: An AP, portable, upright chest radiograph is compared to chest x-ray and chest CT dated 03/06/2022. An endotracheal tube, enteric tube, and a left subclavian central venous catheter are again n oted. The heart is enlarged. There is pulmonary vascular congestion. Bilateral airspace opacities are again seen throughout both lungs. These have modestly cleared from yesterday. No large pleural effus ion or pneumothorax is seen. The bony thorax is grossly intact. IMPRESSION: 1. Lines and tubes as above. 2. Cardiomegaly with pulmonary vascular congestion. 3. Bilateral airspace opacities could represent pulmonary edema and/or multifocal pneumonia. This has modestly cleared as compared to yesterday. ACT 112: Negative or not required by law. Electronically signed by: Ja Villanueva M.D. 03/08/2022 12:39 PM
--- NOTE | 2022-03-08 13:01 | Cardiology Progress Note ---
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 Blood culture now growing staph intermedius. At this point, STEVEN would not change treatment course. Case was reportedly discussed at cardiothoracic surgery rounds No further recommendations from a cardiac standpoint at this time. Will likely repeat limited echocardiogram in the a.m. to follow LV systolic function and tricuspid valve anatomy Admission and Anticipated Discharge Date Admission Date: March 03, 2022 Subjective Patient seen and examined. Chart reviewed. Telemetry reviewed. Case discussed with bedside nursing. Patient extubated but now febrile. Review of Systems Review of Systems: All systems reviewed & are unremarkable except as noted in HPI & below Physical Exam Physical Exam: General: Intubated and sedated. No acute distress. HEENT: Normocephalic, atraumatic. Pupils equal, round and reactive to light and accommodation. Extraocular muscles are intact. Anicteric sclera. Moist mucous membranes. Neck: No JVD. No bruit. Cardiovascular: Regular. Positive S-4. Normal S-1 and S-2. No S-3. 3/6 holosystolic ejection murmur, 5th intercostal space, mid-clavicular line without radiation. No rubs. Pulmonary: Clear to auscultation bilaterally. No rales, rhonchi, or wheezing. Abdomen: Bowel sounds x 4, soft. No rebound, guarding or tenderness. No organomegaly. Extremities: No clubbing, cyanosis or edema. +2 pedal pulses bilaterally. Skin: Warm and dry. Nonspecific lower extremity skin changes. No visible track sparks. No Osler's nodes or [place] lesions identified Results & Data ([facility]) Vital Signs (Past 12 Hours) Vital Signs Temp Pulse Pulse Resp BP Pulse Ox O2 Del Method 03/08/22 12:00 38.5 C H 83 21 94 03/08/22 12:00 149/72 H 03/08/22 11:00 38.4 C H 77 41 H 100 03/08/22 11:00 163/82 H 03/08/22 10:00 38.5 C H 88 20 100 03/08/22 10:00 158/79 H 03/08/22 09:00 38.4 C H 82 33 H 100 03/08/22 09:00 152/68 H 03/08/22 07:30 Mechanical Vent 03/08/22 10:58 75 32 H 98 Oxymask 03/08/22 08:00 38.4 C H 94 H 39 H 96 Aerosol Mask 03/08/22 08:00 142/73 H 03/08/22 07:00 38.2 C H 91 H 31 H 99 Mechanical Vent 03/08/22 07:00 158/86 H 03/08/22 08:15 94 H 03/08/22 08:00 90 32 H 100 03/08/22 06:00 38.0 C H 86 27 H 100 03/08/22 06:00 159/76 H 03/08/22 05:00 37.9 C H 73 33 H 100 03/08/22 05:00 149/73 H 03/08/22 04:00 81 22 100 Mechanical Vent 03/08/22 04:00 37.7 C H 154/79 H 03/08/22 03:00 101 H 17 99 03/08/22 03:00 151/78 H 03/08/22 04:00 03/08/22 04:29 82 34 H 100 03/08/22 02:00 88 33 H 100 03/08/22 02:00 148/78 H 03/08/22 01:00 100 H 38 H 100 03/08/22 01:00 146/78 H O2 Flow Rate FiO2 03/08/22 12:00 03/08/22 12:00 03/08/22 11:00 03/08/22 11:00 03/08/22 10:00 03/08/22 10:00 03/08/22 09:00 03/08/22 09:00 03/08/22 07:30 30 03/08/22 10:58 4 03/08/22 08:00 30 03/08/22 08:00 03/08/22 07:00 30 03/08/22 07:00 03/08/22 08:15 03/08/22 08:00 30 03/08/22 06:00 03/08/22 06:00 03/08/22 05:00 03/08/22 05:00 03/08/22 04:00 30 03/08/22 04:00 03/08/22 03:00 03/08/22 03:00 03/08/22 04:00 30 03/08/22 04:29 30 03/08/22 02:00 03/08/22 02:00 03/08/22 01:00 03/08/22 01:00 (1) Diabetes mellitus, type 2 Diabetes mellitus complication status: with unspecified complications 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
[2022-03-08] MEDS: AZITHROMYCIN 500 MG in DEXTROSE 5% 250 ML IV SCH (13:42)
[2022-03-08 21:33] LABS: Base Excess ABG -4.5 mEq/L (-9-1.8); HCO3 ABG 17 mmol/L (19-24); Oxygen Saturation ABG > 100.0 % (90-95); PCO2 ABG 23 mmHg (35-46); PO2 ABG 101 mmHg (80-95); pH ABG 7.48 (7.35-7.45)
[2022-03-08 21:35] LABS: Allen Test Pos (Pos)
[2022-03-09] MEDS: INSULIN ASPART PER UNIT SC SCH ×5 (00:25→21:21)
[2022-03-09] MEDS: MEROPENEM 2,000 MG in 0.9 % SODIUM CHLORIDE 58 ML IV SCH ×3 (03:14→17:33)
[2022-03-09] MEDS: TUBE FEEDING WATER FLUSH OG SCH ×5 (03:23→10:50)
[2022-03-09] MEDS: ACETAMINOPHEN 1,000 MG/100 ML VIAL IV PRN (03:53)
[2022-03-09] MEDS: VANCOMYCIN HCL 1,000 MG in SODIUM CHLORIDE 0.9% 250 ML IV SCH ×2 (05:48→17:32)
[2022-03-09 06:14] LABS: Basophils # (auto) 0.07 K/uL (0-0.2); Basophils % (auto) 0.4 %; Eosinophils # (auto) 0.01 K/uL (0-0.50); Eosinophils % (auto) 0.1 %; Hematocrit (blood only) 27.5 % (34.1-44.9); Hemoglobin 8.9 g/dl (12.0-16.0); Lymphocytes % (auto) 15.5 %; Mean Corpuscular Hemoglobin 27.6 pg (25.0-34.0); Mean Corpuscular Hgb Conc 32.4 g/dL (32.0-36.0); Mean Corpuscular Volume 85.4 fL (80.0-100.0); Monocytes # (auto) 1.26 K/uL (0.24-0.82); Monocytes % (auto) 7.8 %; Neutrophils # (auto) 11.47 K/uL (1.4-6.5); Neutrophils % (auto) 71.2 %; Platelet Count 441 K/uL (130-400); RDW Coefficient of Variation 17.5 % (11.5-14.5); RDW Standard Deviation 54.3 fL (36.4-46.3); Red Blood Count 3.22 M/uL (3.93-5.22); White Blood Count 16.11 K/ul (4.8-10.8)
[2022-03-09 06:37] LABS: BUN Creatinine Ratio 21.6 (10-20); Bilirubin Direct 0.2 mg/dl (0-0.2); Bilirubin,Total 0.7 mg/dl (0.2-1.0); Calcium 9.4 mg/dl (8.5-10.1); Creatinine Clr Calc Pharmacy 69.5 ml/min; Est GFR (African American) 77.5 ml/min; Est GFR (Non-African American) 66.8 ml/min; Magnesium 2.3 mg/dl (1.7-2.4); Phosphorus 3.3 mg/dl (2.5-4.9); Potassium 3.3 mmol/L (3.5-5.1); Total Protein 7.8 gm/dl (6.0-8.3)
[2022-03-09] MEDS: LEVALBUTEROL 1.25MG/0.5ML NEB INH SCH (06:59)
[2022-03-09] MEDS: IPRATROPIUM BROMIDE NEB SOLN 0.02% 2.5 ML VIAL INH SCH (06:59)
[2022-03-09] MEDS: CLOPIDOGREL BISULFATE 75 MG TAB PO SCH (08:08)
[2022-03-09] MEDS: POTASSIUM CHLORIDE 20 MEQ in DEXTROSE 5% 1,000 ML IV SCH ×2 (08:08→15:15)
[2022-03-09] MEDS: ATORVASTATIN 40 MG TAB PO SCH (08:08)
[2022-03-09] MEDS: ASPIRIN 81 MG CHEW PO SCH (08:08)
[2022-03-09] MEDS: ESCITALOPRAM OXALATE 20 MG TAB PO SCH (08:09)
[2022-03-09] MEDS: POLYETHYLENE (MIRALAX) 17 GM PACK PO SCH (08:09)
[2022-03-09] MEDS: TOPIRAMATE 25 MG TAB PO SCH ×2 (08:09→20:13)
[2022-03-09] MEDS: GABAPENTIN 250 MG/5 ML 470 ML BTL NG SCH (08:09)
[2022-03-09] MEDS: SENNOSIDES 8.8 MG/5 ML UDC PO SCH (08:09)
[2022-03-09] MEDS: DOCUSATE SODIUM SYRUP 100 MG/10 ML UDC PO SCH ×2 (08:09→21:00)
[2022-03-09] MEDS: ENOXAPARIN INJ 40 MG/0.4 ML SYR SQ SCH (08:09)
[2022-03-09] MEDS: FAMOTIDINE 20 MG in SYRINGE 3 ML IV SCH (08:15)
[2022-03-09] MEDS: CASPOFUNGIN IV SCH (09:31)
[2022-03-09] MEDS: SODIUM CHLORIDE 0.9% IV SCH (09:31)
[2022-03-09] MEDS: MoRPHine SULFATE 2 MG/ML CARP IV PRN ×3 (09:46→19:31)
[2022-03-09] MEDS ORDERED: LEVALBUTEROL 1.25MG/0.5ML NEB INH PRN (10:13)
[2022-03-09] MEDS ORDERED: IPRATROPIUM BROMIDE NEB SOLN 0.02% 2.5 ML VIAL INH PRN (10:13)
[2022-03-09] MEDS: levETIRAcetam 500 MG in 0.9 % SODIUM CHLORIDE 100 ML IV SCH (10:15)
[2022-03-09] MEDS: ACETAMINOPHEN 500 MG TAB PO PRN (12:14)
--- NOTE | 2022-03-09 12:18 | Hospitalist Progress Note ---
Date of Service March 09, 2022 Assessment & Plan (1) Acute respiratory failure with hypoxia: Plan: - now extubated on 2-3L NC - Present on admission with worsening SOB, congestion and productive cough - CXR showed cardiomegaly. Multifocal airspace opacities compatible pneumonia. - CTA chest showed no evidence of pulmonary embolus in the main, lobar, or segmental pulmonary arteries. - Currently sedated and intubated on vent support - Sputum cx grew staph intermedius - concern for endocarditis but negative blood cultures - [facility] [place] specialist evaluated and do not feel there is vegetation and even so, not candidate for AngioVac procedure - patient successfully extubated 03/08/2022 and tolerating well - supplemental oxygen to maintain SpO2 >92% (2) Multifocal pneumonia: Plan: - seen on CXR and CT chest - vent management as above - wean as tolerated - on broad abx with vanc, Zosyn, caspofungin per ID - follow up ID - blood cultures negative to date - improving on CXR 03/08/2022 and extubated - respiratory status improving - continue to wean O2 as tolerated (3) Sepsis: Plan: - Met sepsis criteria on admission with tachycardia, leukocytosis, elevate RR - WBC 31.9 K, now trending down - lactic acid and procalcitonin elevated on admission - Pressor discontinued - BP maintaining - Blood cx on 03/03 and 03/04 no growth to date - ID consult on board - Currently on azithromycin, caspofungin, IV Zosyn and Vanco - spiking fevers on above - escalated to meropenem, Zosyn dc'd 03/08/2022 - repeat blood cultures ordered 03/08/2022 - vital stable - WBC still rising but improving clinically (4) CHF (congestive heart failure): Plan: - BNP 516 on admission - Received IV lasix - ECHO showed severely reduced LV systolic function with severe global hypokinesis with EF 30-35% - cardiology on board - Continue Monitor I/O (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 there is not appear to be any abscess tract formation around the annulus, no clear indication for urgent surgery - Blood cx on 03/03 and 03/04 no growth - ID on board - Currently on broad spectrum abx with azithromycin, caspofungin, IV Zosyn and V anco - Case discussed with cardiology Dr. Alexis Knight at [facility] for possible transfer for angio VAC treatment of endocarditis - follow up with CTS at [facility] does not believe this is vegetation but difficult to assess, STEVEN would be definitive, however, AngioVac procedure would not benefit patient and so patient will not be transferred at this time - will continue empiric treatment with IV abx as above - consider STEVEN if positive blood cultures or clinical deterioration Plan DVT ppx: heparin SC Code Status: Full Code Dispo: ICU Dylon Aldrich MD [facility] Medicine Admission and Anticipated Discharge Date Admission Date: March 03, 2022 Subjective Patient with DM, OUD, admitted for acute hypoxic respiratory failure and diffuse pulmonary infiltrates on mechanical ventilation. On vancomycin, Zosyn, caspofungin per ID. Question of endocarditis, evaluated by [facility] Cardiology who do not feel patient would benefit from intervention on potential vegetation and not accepting transfer at this time. Blood cultures have been negative. Spiking fevers, Zosyn changed to meropenem 03/08/2022, repeat blood cultures 03/08/2022. Extubated successfully 03/08/2022. Downgraded from ICU 03/08/2022, tolerating minimal NC. Patient successfully extubated 03/08/2022, now on NC tolerating well, somewhat tachypneic at times but seems to be anxiety related. Patient awake and alert, follows commands and nods head "yes" and "no" but does not speak, seems like she tries to speak but does not say anything. Answers yes with nod if asked if having pain but does not specify where. Review of Systems Review of Systems: As per HPI, all other systems reviewed and negative Physical Exam 2 Physical Exam: General- awake and alert, nods yes and no but does not answer with speech Head- atraumatic Eyes- PERRL ENT- oral mucosa moist, no lesions noted Neck- supple, no JVD Lungs- on face mask, extubated, no wheezing, CTAB Heart- regular rhythm; +systolic murmur Abdomen- normal bowel sounds, soft, nontender Extremities- no calf tenderness Neuro- following simple commands, awake and alert, moving all extremities spontaneously Skin- warm & dry, No Osler's nodes or [place] lesions identified Results & Data Results & Data ([facility]) Vital Signs (Past 12 Hours) Vital Signs Temp Pulse Resp BP Pulse Ox O2 Del Method O2 Flow Rate 03/09/22 12:01 37.9 C H 102 H 20 140/77 98 Nasal Cannula 3 03/09/22 08:33 Nasal Cannula 3 03/09/22 07:27 37.3 C 97 H 21 156/77 H 99 Nasal Cannula 3 03/09/22 06:59 92 H 24 94 Nasal Cannula 3 03/09/22 03:54 38.2 C H 92 H 30 H 160/88 H 97 Nasal Cannula 3 03/09/22 00:20 36.8 C 88 20 166/77 H 98 Nasal Cannula 3 Diagnostic Findings Laboratory Results WBC 16.11 K/ul (4.8-10.8) H 03/09/22 05:35 RBC 3.22 M/uL (3.93-5.22) L 03/09/22 05:35 Hgb 8.9 g/dl (12.0-16.0) L 03/09/22 05:35 POC Hgb 8.8 g/dl (12.0-16.0) L 03/08/22 04:09 Hct 27.5 % (34.1-44.9) L 03/09/22 05:35 POC Hct 26 % (37-47) L 03/08/22 04:09 MCV 85.4 fL (80.0-100.0) 03/09/22 05:35 MCH 27.6 pg (25.0-34.0) 03/09/22 05:35 MCHC 32.4 g/dL (32.0-36.0) 03/09/22 05:35 RDW Std Deviation 54.3 fL (36.4-46.3) H 03/09/22 05:35 RDW Coeff of Hannah 17.5 % (11.5-14.5) H 03/09/22 05:35 Plt Count 441 K/uL (130-400) H 03/09/22 05:35 MPV 9.0 fL (9.4-12.3) L 03/09/22 05:35 Immature Gran % (Auto) 5.0 % 03/09/22 05:35 Neut % (Auto) 71.2 % 03/09/22 05:35 Lymph % (Auto) 15.5 % 03/09/22 05:35 Walton % (Auto) 7.8 % 03/09/22 05:35 Eos % (Auto) 0.1 % 03/09/22 05:35 Baso % (Auto) 0.4 % 03/09/22 05:35 Neut # (Auto) 11.47 K/uL (1.4-6.5) H 03/09/22 05:35 Lymph # (Auto) 2.50 K/uL (1.2-3.4) 03/09/22 05:35 Walton # (Auto) 1.26 K/uL (0.24-0.82) H 03/09/22 05:35 Eos # (Auto) 0.01 K/uL (0-0.50) 03/09/22 05:35 Baso # (Auto) 0.07 K/uL (0-0.2) 03/09/22 05:35 Immature Gran # (Auto) 0.80 K/uL (0.00-0.02) H 03/09/22 05:35 Neutrophils % (Manual) 94 % 03/03/22 04:20 Lymphocytes % (Manual) 2 % 03/03/22 04:20 Monocytes % (Manual) 3 % 03/03/22 04:20 Basophils % (Manual) 1 % 03/03/22 04:20 Neutrophils # (Manual) 30.06 K/uL (1.4-6.5) H 03/03/22 04:20 Total Absolute Neuts 30.06 K/uL (1.4-6.5) H 03/03/22 04:20 Lymphocytes # (Manual) 0.64 K/uL (1.2-3.4) L 03/03/22 04:20 Total Abs Lymphocytes 0.64 K/uL (1.2-3.4) L 03/03/22 04:20 Monocytes # (Manual) 0.96 K/uL (0.24-0.82) H 03/03/22 04:20 Basophils # (Manual) 0.32 K/uL (0-0.2) H 03/03/22 04:20 RBC Morphology Unremarkable 03/07/22 04:00 Echinocytes 2+ 03/03/22 04:20 Haptoglobin 211 mg/dL (43-212) 03/04/22 10:10 APTT 31.3 Seconds (21.0-31.0) H 03/03/22 04:20 PTT Ratio 1.1 03/03/22 04:20 Sample Site L Radial 03/08/22 04:09 POC pH 7.43 (7.35-7.45) 03/08/22 04:09 POC pCO2 33 mmHg (35-46) L 03/08/22 04:09 POC pO2 116 mmHg (80-95) H 03/08/22 04:09 POC HCO3 22 quinn/L (19-24) 03/08/22 04:09 POC Total CO2 23 mmol/L (24-31) L 03/08/22 04:09 POC Base Excess -3.0 quinn/L (-9-1.8) 03/08/22 04:09 ABG pH 7.48 (7.35-7.45) H 03/08/22 21:18 ABG pH (Temp Correct) 7.416 (7.35-7.45) 03/08/22 04:09 ABG pCO2 23 mmHg (35-46) L 03/08/22 21:18 ABG pCO2 (Temp Corrct 34 mmHg (35-46) L 03/08/22 04:09 ABG pO2 101 mmHg (80-95) H 03/08/22 21:18 POC ABG pO2 at Pt Temp 120 03/08/22 04:09 ABG HCO3 17 mmol/L (19-24) L 03/08/22 21:18 POC ABG O2 Sat 99.0 % (90-95) H 03/08/22 04:09 ABG O2 Saturation > 100.0 % (90-95) H 03/08/22 21:18 ABG Base Excess -4.5 mEq/L (-9-1.8) 03/08/22 21:18 Caesar Test Pos (Pos) 03/08/22 21:18 VBG pH Cancelled 03/03/22 04:20 VBG pCO2 Cancelled 03/03/22 04:20 VBG pO2 Cancelled 03/03/22 04:20 VBG HCO3 Cancelled 03/03/22 04:20 VBG O2 Saturation Cancelled 03/03/22 04:20 VBG Base Excess Cancelled 03/03/22 04:20 Barometric Pressure Cancelled 03/03/22 04:20 Oxygen Given 3L 03/08/22 21:18 O2 Delivery Device Ventilator 03/08/22 04:09 POC O2 Rate 16 03/08/22 04:09 POC FiO2 30 % 03/07/22 05:24 Tidal Volume 330 03/03/22 10:06 PEEP 5 03/08/22 04:09 POC Sodium 144 mmol/L (135-144) 03/08/22 04:09 Sodium 148 mmol/L (136-145) H 03/09/22 05:35 POC Potassium 3.5 mmol/L (3.3-5.0) 03/08/22 04:09 Potassium 3.3 mmol/L (3.5-5.1) L 03/09/22 05:35 Chloride 116 mmol/L (98-107) H 03/09/22 05:35 Carbon Dioxide 19 mmol/L (21-32) L 03/09/22 05:35 Anion Gap 13 (3-11) H 03/09/22 05:35 BUN 22 mg/dl (6-23) 03/09/22 05:35 Creatinine 1.02 mg/dl (0.6-1.2) 03/09/22 05:35 Est Cr Clr Drug Dosing 69.5 ml/min 03/09/22 05:35 Est GFR ( Amer) 77.5 ml/min 03/09/22 05:35 Est GFR (Non-Af Amer) 66.8 ml/min 03/09/22 05:35 BUN/Creatinine Ratio 21.6 (10-20) H 03/09/22 05:35 Glucose 132 mg/dl (70-99(Fasting)) H 03/09/22 05:35 POC Glucose 290 mg/dl (70-99) H 03/09/22 11:10 POC Glucose (other) 128 mg/dl (70-99) H 03/03/22 20:26 Estimat Average Glucose 117 mg/dl 03/07/22 04:00 Hemoglobin A1c 5.7 % (4.5-5.6) H 03/07/22 04:00 Osmolality 269 mOsm/kg (280-300) L 03/03/22 06:08 Lactate 2.1 mmol/L (0.4-2.0) H* 03/03/22 12:27 Calcium 9.4 mg/dl (8.5-10.1) 03/09/22 05:35 Phosphorus 3.3 mg/dl (2.5-4.9) 03/09/22 05:35 Magnesium 2.3 mg/dl (1.7-2.4) 03/09/22 05:35 Total Bilirubin 0.7 mg/dl (0.2-1.0) 03/09/22 05:35 Direct Bilirubin 0.2 mg/dl (0-0.2) 03/09/22 05:35 AST 28 U/L (13-39) 03/09/22 05:35 ALT 18 U/L (7-52) 03/09/22 05:35 Alkaline Phosphatase 98 U/L (34-104) 03/09/22 05:35 Ammonia 40.0 umol/L (18-72) 03/08/22 21:18 Lactate Dehydrogenase 619 U/L (86-244) H 03/04/22 10:10 Troponin I High Sens 91.7 pg/ml (0-14) H* D 03/03/22 06:08 B-Natriuretic Peptide 516 pg/ml (0-100) H 03/03/22 09:38 Total Protein 7.8 gm/dl (6.0-8.3) 03/09/22 05:35 Albumin 4.0 gm/dl (3.4-5.0) 03/09/22 05:35 Globulin 3.0 gm/dl (2.5-4.0) 03/06/22 04:31 Albumin/Globulin Ratio 1.1 (0.9-2) 03/06/22 04:31 Triglycerides 193 mg/dl (0-150) H 03/07/22 09:47 Procalcitonin 0.46 ng/ml (0-0.5) 03/04/22 10:10 TSH 0.451 uIu/ml (0.300-4.500) 03/03/22 06:08 Urine Color Yellow 03/03/22 05:25 Urine Appearance Cloudy (Clear) A 03/03/22 05:25 Urine pH 5.0 (4.5-7.5) 03/03/22 05:25 Ur Specific [place] 1.012 (1.000-1.030) 03/03/22 05:25 Urine Protein Negative (Negative) 03/03/22 05:25 Urine Glucose (UA) Negative (Negative) 03/03/22 05:25 Urine Ketones Negative (Negative) 03/03/22 05:25 Urine Blood Negative (Negative) 03/03/22 05:25 Urine Nitrite Negative (Negative) 03/03/22 05:25 Urine Bilirubin Negative (Negative) 03/03/22 05:25 Urine Urobilinogen Negative (Negative) 03/03/22 05:25 Ur Leukocyte Esterase Trace (Negative) H 03/03/22 05:25 Urine WBC (Auto) 1-5 /hpf (0-5) 03/03/22 05:25 Urine RBC (Auto) 0-4 /hpf (0-4) 03/03/22 05:25 U Hyaline Cast (Auto) 1-5 /lpf (0-5) 03/03/22 05:25 U Epithel Cells (Auto) >30 /lpf (0-5) H 03/03/22 05:25 Urine Bacteria (Auto) 1+ (Negative) H 03/03/22 05:25 Urine Osmolality 258 mOsm/kg (500-800) L 03/03/22 11:20 Ur Random Sodium 50 mmol/L 03/03/22 11:20 Nasal Screen MRSA (PCR) Negative (Negative) 03/03/22 08:07 Vancomycin Trough 16.9 mcg/ml (10-20) 03/08/22 05:17 Random Vancomycin 21.4 mcg/ml (10-20) H 03/07/22 04:00 Ur Butalbital Confirm Cancelled 03/04/22 13:10 Urine Opiates Screen Cancelled 03/04/22 13:10 Urine Opiates Screen Neg (Neg) 03/04/22 13:10 U Codeine Confrm GC/MS Cancelled 03/04/22 13:10 Ur Morphine (GC/MS) Cancelled 03/04/22 13:10 Ur Hydrocodone (GC/MS) Cancelled 03/04/22 13:10 U Norhydrocodone Conf Cancelled 03/04/22 13:10 Ur Oxycodone Screen Cancelled 03/04/22 13:10 U Noroxycodone Confirm Cancelled 03/04/22 13:10 Ur Oxycodone GC/MS Cancelled 03/04/22 13:10 U Oxymorphone GC/MS Cancelled 03/04/22 13:10 EDDP Confirm Cancelled 03/04/22 13:10 Ur Methadone, Qual Cancelled 03/04/22 13:10 Ur Methadone, Qual Neg (Neg) 03/04/22 13:10 Ur Methadone Cancelled 03/04/22 13:10 Ur Hydromorphone (GC/MS) Cancelled 03/04/22 13:10 Urine Barbiturates Cancelled 03/04/22 13:10 Urine Barbiturates Neg (Neg) 03/04/22 13:10 Ur Phencyclidine Scrn Cancelled 03/04/22 13:10 Ur Phencyclidine (PCP) Neg (Neg) 03/04/22 13:10 Urine PCP Confirm Cancelled 03/04/22 13:10 Ur Amphetamines Screen Cancelled 03/04/22 13:10 U Amphetamines Confirm Cancelled 03/04/22 13:10 U Amphetamin/Meth Scrn Neg (Neg) 03/04/22 13:10 Methamphetamine GC/MS Cancelled 03/04/22 13:10 MDMA (Ecstasy) Screen Neg (Neg) 03/04/22 13:10 Ur Amobarbital GC/MS Cancelled 03/04/22 13:10 U Pentobarbital GC/MS Cancelled 03/04/22 13:10 U Phenobarbital GC/MS Cancelled 03/04/22 13:10 U Secobarbital GC/MS Cancelled 03/04/22 13:10 U OH-Alprazolam Confrm NEGATIVE ng/mL (<25) 03/04/22 13:10 U [id number] GC/MS Cancelled 03/04/22 13:10 U Benzodiazepines Scrn Cancelled 03/04/22 13:10 U Benzodiazepines Scrn Pos (Neg) H 03/04/22 13:10 7-Amino Clonazepam NEGATIVE ng/mL (<25) 03/04/22 13:10 U 7-Aminoclonazepam Screen Cancelled 03/04/22 13:10 Ur Nordiazepam Confirm NEGATIVE ng/mL (<50) 03/04/22 13:10 Ur Nordiazepam GC/MS Cancelled 03/04/22 13:10 U OH-ethylflurazepam NEGATIVE ng/mL (<50) 03/04/22 13:10 U OH-ethylfluraz GC/MS Cancelled 03/04/22 13:10 U Lorazepam Cnf GC/MS Cancelled 03/04/22 13:10 U Lorazepam Cnf GC/MS NEGATIVE ng/mL (<50) 03/04/22 13:10 U Oxazepam Confm GC/MS Cancelled 03/04/22 13:10 U Oxazepam Confm GC/MS NEGATIVE ng/mL (<50) 03/04/22 13:10 Ur Temazepam Confirm NEGATIVE ng/mL (<50) 03/04/22 13:10 Ur Temazepam Cnf GC/MS Cancelled 03/04/22 13:10 U a-Hydroxytriaz GC/MS Cancelled 03/04/22 13:10 U OH-Triazolam Confirm NEGATIVE ng/mL (<50) 03/04/22 13:10 U [id number] Cancelled 03/04/22 13:10 U OH-Midazolam Confirm 408 ng/mL (<50) H 03/04/22 13:10 Urine Cocaine Cancelled 03/04/22 13:10 Ur Cocaine Metabolite Neg (Neg) 03/04/22 13:10 U Cocaine Metab Confirm Cancelled 03/04/22 13:10 Tetrahydrocannabinol Cancelled 03/04/22 13:10 U Marijuana (THC) Screen Cancelled 03/04/22 13:10 U Marijuana (THC) Screen Neg (Neg) 03/04/22 13:10 Drug Screen Comment Cancelled 03/04/22 13:10 Drug Screen Comment SEE NOTE 03/04/22 13:10 SARS-CoV-2 (PCR) NEGATIVE (Negative) 03/03/22 04:00 HIV (1&2) Ag & Ab Conf NON-REACTIVE (NON-REACTIVE) 03/06/22 10:31 Influenza Type A (PCR) Negative (Neg) 03/03/22 04:00 Influenza Type B (PCR) Negative (Neg) 03/03/22 04:00 Urine Legionella Ag SEE NOTE 03/08/22 10:56 RSV (RT-PCR) Negative (Neg) 03/03/22 04:00 Reference Lab Cancelled 03/04/22 13:10 Impressions Chest CTA 03/06/22 15:47 CT ANGIOGRAM OF THE CHEST CLINICAL HISTORY: Respiratory failure. COMPARISON STUDY: Chest x-ray dated 03/06/2022. Chest CT dated 07/10/2021. TECHNIQUE: Following the IV administration of 119 cc of Optiray 320, CT angiogram of the chest was performed from the upper abdomen to the thoracic inlet utilizing the pulmonary embolus protocol. Images are reviewed in the axial, sagittal, and coronal planes. 3-D MIPS images are created and assessed. IV contrast was administered without complication. A dose lowering technique was utilized adhering to the principles of ALARA. The examination is severely degraded by motion artifact. There is also streak artifact from the arms which could not be elevated above the chest. CT DOSE: 779.91 mGy.cm FINDINGS: Thyroid: The thyroid gland is enlarged and heterogeneous. Low-attenuation nodules measure up to 1.6 cm. Thoracic aorta: There is mild atherosclerotic calcification of the thoracic aorta, which is normal in caliber and demonstrates standard 3-vessel arch anatomy. No dissection is seen. Pulmonary vasculature: The pulmonary trunk is normal in caliber. There are no filling defects identified in main, lobar, or segmental pulmonary branches to suggest pulmonary embolus. Evaluation of the subsegmental branches is degraded by motion artifact. Heart: A left subclavian central venous catheter is in place. The heart is mildly enlarged and without pericardial effusion. The coronary arteries are densely calcified. Lungs and pleural spaces: An endotracheal tube terminates at the level of the misti. Extensive/diffuse groundglass consolidation is seen throughout both lungs. Foci of air trapping are seen at the left lung base. There is associated intralobular septal thickening. Mediastinum: There is bulky mediastinal lymphadenopathy. A subcarinal node measures 3.8 cm short axis. Prevascular nodes measure up to 1.4 cm short axis. Sameera: There is bilateral hilar adenopathy. Hilar nodes measure up to 1.6 cm in short axis. Axillae: There is no axillary lymphadenopathy. Upper abdomen: An enteric tube is in place. This extends below the diaphragm into the stomach. The liver is enlarged and steatotic. Reflux of contrast into the IVC and hepatic veins suggest cardiac dysfunction. The spleen is enlarged. Skeletal structures: The skeletal structures are osteopenic. There is a mild superior endplate compression deformity of L1. No lytic or blastic bony lesions are seen. IMPRESSION: 1. Streak and motion compromised examination 2. An endotracheal tube terminates at the level of the misti. Consider repositioning. 3. There is no evidence of pulmonary embolus in the main, lobar, or segmental pulmonary arteries. 4. Cardiomegaly and coronary artery calcification. 5. Groundglass consolidation is seen throughout both lungs with associated intralobular septal thickening. Differential considerations include pulmonary edema, multifocal pneumonia, and/or ARDS. Clinical correlation will be essential and radiographic follow-up to resolution is recommended. 6. There is bulky mediastinal and hilar lymphadenopathy. Clinical correlation required. 7. Hepatomegaly with hepatic steatosis. 8. Splenomegaly. 9. Enlarged multinodular thyroid gland. Nonemergent/outpatient thyroid ultrasound is recommended in follow-up. 10. Additional findings as above. ACT 112: Negative or not required by law. Electronically signed by: Ja Villanueva M.D. 03/06/2022 5:[address] 03/07/22 14:[address] DOSE: 691.05 mGy.cm HISTORY: Altered mental status. TECHNIQUE: Multiaxial CT images of the head were performed without the use of intravenous contrast. Automated exposure control was utilized for this study. A dose lowering technique was utilized adhering to the principles of ALARA. Comparison: Head CT 09/07/2021. Findings: Partially visualized endotracheal tube and orogastric tube noted. The paranasal sinuses and right mastoid air cells are clear. Small left mastoid effusion. The calvarium and skull base are intact. The ventricles and sulci are within normal limits. There is no mass, hematoma, midline shift, or acute infarct. Impression: No acute intracranial abnormality. Partially visualized endotracheal tube and orogastric tube noted. ACT 112: Negative or not required by law. Electronically signed by: Arnol Kenney M.D. 03/07/2022 3:39 PM Chest X-Ray 03/08/22 07:00 SINGLE VIEW CHEST CLINICAL HISTORY: Respiratory failure. FINDINGS: An AP, portable, upright chest radiograph is compared to chest x-ray and chest CT dated 03/06/2022. An endotracheal tube, enteric tube, and a left subclavian central venous catheter are again noted. The heart is enlarged. There is pulmonary vascular congestion. Bilateral airspace opacities are again seen throughout both lungs. These have modestly cleared from yesterday. No large pleural effusion or pneumothorax is seen. The bony thorax is grossly intact. IMPRESSION: 1. Lines and tubes as above. 2. Cardiomegaly with pulmonary vascular congestion. 3. Bilateral airspace opacities could represent pulmonary edema and/or multifocal pneumonia. This has modestly cleared as compared to yesterday. ACT 112: Negative or not required by law. Electronically signed by: Ja Villanueva M.D. 03/08/2022 12:39 PM Medications Administered Current Inpatient Medications Acetaminophen (Acetaminophen 500 Mg Tab) 500 mg PO Q6H PRN PRN Reason: pain/fever Stop: 04/02/22 07:55 Last Admin: 03/09/22 12:14 Dose: 500 mg Aspirin (Aspirin 81 Mg Chew) 81 mg PO DAILY [facility]ILMA Stop: 04/02/22 10:14 Last Admin: 03/09/22 08:08 Dose: Not Given Atorvastatin Calcium (Atorvastatin 40 Mg Tab) 80 mg PO DAILY WILMA Stop: 04/02/22 08:59 Last Admin: 03/09/22 08:08 Dose: Not Given Azithromycin (Azithromycin 250 Mg Tab) 500 mg PO QAM WILMA Stop: 03/12/22 08:59 Clopidogrel Bisulfate (Clopidogrel Bisulfate 75 Mg Tab) 75 mg PO DAILY WILMA Stop: 04/02/22 08:59 Last Admin: 03/09/22 08:08 Dose: Not Given Dextrose (Dextrose 50% 50 Ml Syringe) 25 - 50 ml IV UD PRN; Protocol PRN Reason: Hypoglycemia Protocol Stop: 04/02/22 07:55 Docusate Sodium (Docusate Sodium Syrup 100 Mg/10 Ml Udc) 100 mg PO BID WILMA Stop: 04/05/22 20:59 Last Admin: 03/09/22 08:09 Dose: Not Given Enoxaparin Sodium (Enoxaparin Inj 40 Mg/0.4 Ml Syr) 40 mg SQ QAM WILMA Stop: 04/07/22 08:59 Last Admin: 03/09/22 08:09 Dose: Not Given Escitalopram Oxalate (Escitalopram Oxalate 20 Mg Tab) 20 mg PO DAILY WILMA Stop: 04/02/22 08:59 Last Admin: 03/09/22 08:09 Dose: Not Given Famotidine (Famotidine 20 Mg Tab) 20 mg PO BID WILMA Stop: 04/02/22 20:59 Last Admin: 03/08/22 10:08 Dose: Not Given Gabapentin (Gabapentin 250 Mg/5 Ml 470 Ml Btl) 300 mg PO TID WILMA Stop: 04/08/22 13:59 Glucagon (Glucagon For Inj 1 Mg Vial) 1 mg SQ UD PRN; Protocol PRN Reason: Hypoglycemia Protocol Stop: 04/02/22 07:55 Glucose (Glucose 40% Gel 15 Gm Tube) 15 - 30 gm PO UD PRN; Protocol PRN Reason: Hypoglycemia Protocol Stop: 04/02/22 07:55 Glucose (Glucose 10 Tab/Tube) 4 - 8 tab PO UD PRN; Protocol PRN Reason: Hypoglycemia Treatment Stop: 04/02/22 07:55 Vancomycin HCl 1,000 mg/ (Sodium Chloride) 270 mls @ 200 mls/hr IV Q12H WILMA; Protocol Stop: 04/15/22 17:59 Last Infusion: 03/09/22 07:12 Dose: Infused Caspofungin 150 mg/ Sodium (Chloride) 310 mls @ 260 mls/hr IV Q24H [facility] Stop: 04/17/22 10:29 Last Infusion: 03/09/22 10:53 Dose: Infused Meropenem 2,000 mg/ Sodium (Chloride) 100 mls @ 200 mls/hr IV Q8H [facility]ILMA; Protocol Stop: 04/19/22 09:59 Last Infusion: 03/09/22 10:15 Dose: Infused Potassium Chloride 20 meq/ (Dextrose) 1,010 mls @ 125 mls/hr IV .Q8H5M [facility] Stop: 03/09/22 23:30 Last Admin: 03/09/22 08:08 Dose: 125 mls/hr Insulin Aspart (Insulin Aspart Per Unit) 0 units SC Q6 [facility]ILMA; Protocol Stop: 04/04/22 11:59 Last Admin: 03/09/22 11:16 Dose: 5 units Ipratropium [place] (Ipratropium [place] Neb Soln 0.02% 2.5 Ml Vial) 0.5 mg INH QIDR PRN PRN Reason: Wheezing Stop: 04/02/22 10:59 Levalbuterol HCl (Levalbuterol 1.25mg/0.5ml Neb) 1.25 mg INH QIDR PRN PRN Reason: Wheezing Stop: 04/02/22 10:59 Levetiracetam (Levetiracetam Soln 500 Mg/5 Ml Udp) 500 mg PO Q12 [facility] Stop: 04/08/22 20:59 Miscellaneous (Carbohydrates For Hypoglycemia ) 15 - 30 gm PO UD PRN PRN Reason: Hypoglycemia Protocol Stop: 04/02/22 07:55 Miscellaneous Information (Vancomycin Consult Active) 1 each N/A UD PRN PRN Reason: Consult Stop: 04/03/22 09:06 Miscellaneous Information (Pharmacy Glycemic Mgmt Consult) 1 each N/A UD PRN; Protocol PRN Reason: Consult Stop: 04/04/22 09:42 Morphine Sulfate (Morphine Sulfate 2 Mg/Ml Carp) 2 mg IV Q4H PRN PRN Reason: Pain Stop: 03/23/22 09:31 Last Admin: 03/09/22 09:46 Dose: 2 mg Polyethylene Glycol (Polyethylene (Miralax) 17 Gm Pack) 17 gm PO DAILY [facility] Stop: 04/05/22 09:34 Last Admin: 03/09/22 08:09 Dose: Not Given Sennosides (Sennosides 8.8 Mg/5 Ml Udc) 8.8 mg PO QAM [facility] Stop: 04/05/22 09:44 Last Admin: 03/09/22 08:09 Dose: Not Given Topiramate (Topiramate 25 Mg Tab) 25 mg PO BID [facility] Stop: 04/02/22 08:59 Last Admin: 03/09/22 08:09 Dose: Not Given (1) CHF (congestive heart failure) Heart failure chronicity: acute Heart failure type: unspecified Qualified Code(s): I50.9 - Heart failure, unspecified
[2022-03-09] MEDS: GABAPENTIN 250 MG/5 ML 470 ML BTL PO SCH ×2 (13:36→20:11)
--- NOTE | 2022-03-09 14:11 | Pharmacy Report ---
Pharmacy Glycemic Short Note 2 - Date of Service March 09, 2022 - Glycemic Short BSG Results (Last 24 hours): 03/08/22 03/09/22 03/09/22 17:51 00:18 05:35 Glucose 132 H POC Glucose 118 H 133 H 03/09/22 03/09/22 05:46 11:10 Glucose POC Glucose 157 H 290 H OUTPATIENT ANTIDIABETIC REGIMEN: * Liraglutide 1.2 mg SQ daily * metformin 1 gm PO BID * HbA1C ordered ASSESSMENT: 03/09 * Patient received no insulin yesterday - was extubated BSGs within range yesterday * Fasting BSG 132 mg/dL - no basal indicated currently. Provider starting some fluids with dextrose this morning x 1 liter * Lunch BSG trending upward. I spoke with RN and she reports patient is eating now, but minimal * Will continue to trend BSGs for now - no change with CF/CR indicated just yet 03/05 * Ms Gonzalez is a 42 y/o F with a PMH of T2DM who presents with SOB. * Patient is currently intubated on phenylephrine. Tube feeds have been initiated. * Patient originally on Lantus 10 units daily. D/c'ed this AM as patient's BSGs have been trending downwards. * Novolog weight-based stress of 2. PLAN FOR INPATIENT GLYCEMIC CONTROL: * Hold outpatient oral diabetes medications * Basal insulin * HOLD * Bolus insulin * NovoLog per scale ACHS or Q6hrs while NPO * Goal Range: Low 110 mg/dL - High 140 mg/dL * Correction Factor: 30 mg/dL/unit * Nutritional / Prandial insulin per carb ratio of 1 unit per 10 grams CHO consumed
[2022-03-09] MEDS: FAMOTIDINE 20 MG TAB PO SCH (20:13)
[2022-03-09 20:43] LABS: HIV 1 RNA PCR Copies/ML Not Detected Copies/mL; HIV-1 RNA Log Copies/mL Not Detected Log cps/mL; Hepatitis C Vira RNA (Log) PCR 3.65 Log IU/mL (NOT DETECTED); Hepatitis C Viral RNA by PCR 4500 IU/mL (NOT DETECTED)
[2022-03-10] MEDS: MEROPENEM 2,000 MG in 0.9 % SODIUM CHLORIDE 58 ML IV SCH ×3 (01:37→17:45)
[2022-03-10 04:19] LABS: Basophils # (auto) 0.09 K/uL (0-0.2); Basophils % (auto) 0.6 %; Eosinophils # (auto) 0.09 K/uL (0-0.50); Eosinophils % (auto) 0.6 %; Hematocrit (blood only) 27.6 % (34.1-44.9); Hemoglobin 9.1 g/dl (12.0-16.0); Immature Granulocytes # (auto) 0.43 K/uL (0.00-0.02); Lymphocytes # (auto) 3.51 K/uL (1.2-3.4); Lymphocytes % (auto) 24.9 %; Mean Corpuscular Hemoglobin 27.5 pg (25.0-34.0); Mean Corpuscular Volume 83.4 fL (80.0-100.0); Mean Platelet Volume 9.1 fL (9.4-12.3); Monocytes # (auto) 1.28 K/uL (0.24-0.82); Monocytes % (auto) 9.1 %; Neutrophils # (auto) 8.72 K/uL (1.4-6.5); Neutrophils % (auto) 61.8 %; Platelet Count 406 K/uL (130-400); RDW Coefficient of Variation 17.2 % (11.5-14.5); Red Blood Count 3.31 M/uL (3.93-5.22); White Blood Count 14.12 K/ul (4.8-10.8)
[2022-03-10 04:29] LABS: INR 1.2 (0.9-1.1); Prothrombin Time 12.7 Seconds (9.0-12.0)
[2022-03-10 04:37] LABS: BUN Creatinine Ratio 21.1 (10-20); Calcium 8.9 mg/dl (8.5-10.1); Creatinine Clr Calc Pharmacy 78.8 ml/min; Est GFR (African American) 90.1 ml/min; Est GFR (Non-African American) 77.8 ml/min; Magnesium 1.8 mg/dl (1.7-2.4); Potassium 3.3 mmol/L (3.5-5.1)
[2022-03-10] MEDS: VANCOMYCIN HCL 1,000 MG in SODIUM CHLORIDE 0.9% 250 ML IV SCH ×2 (05:54→17:45)
[2022-03-10] MEDS: INSULIN ASPART PER UNIT SC SCH ×4 (08:37→20:42)
[2022-03-10] MEDS: ASPIRIN 81 MG CHEW PO SCH (08:38)
[2022-03-10] MEDS: FAMOTIDINE 20 MG TAB PO SCH ×2 (08:39→20:15)
[2022-03-10] MEDS: CLOPIDOGREL BISULFATE 75 MG TAB PO SCH (08:39)
[2022-03-10] MEDS: ESCITALOPRAM OXALATE 20 MG TAB PO SCH (08:40)
[2022-03-10] MEDS: ATORVASTATIN 40 MG TAB PO SCH (08:40)
[2022-03-10] MEDS: DOCUSATE SODIUM SYRUP 100 MG/10 ML UDC PO SCH ×2 (08:41→20:09)
[2022-03-10] MEDS: POLYETHYLENE (MIRALAX) 17 GM PACK PO SCH (08:41)
[2022-03-10] MEDS: AZITHROMYCIN 250 MG TAB PO SCH (08:41)
[2022-03-10] MEDS: SENNOSIDES 8.8 MG/5 ML UDC PO SCH (08:42)
[2022-03-10] MEDS: MoRPHine SULFATE 2 MG/ML CARP IV PRN ×3 (08:43→22:03)
[2022-03-10] MEDS: GABAPENTIN 250 MG/5 ML 470 ML BTL PO SCH ×3 (08:49→20:15)
[2022-03-10] MEDS: ENOXAPARIN INJ 40 MG/0.4 ML SYR SQ SCH (08:54)
[2022-03-10] MEDS: CASPOFUNGIN IV SCH (10:13)
[2022-03-10] MEDS: SODIUM CHLORIDE 0.9% IV SCH (10:13)
[2022-03-10] MEDS: TOPIRAMATE 25 MG TAB PO SCH ×2 (10:14→20:15)
[2022-03-10] MEDS: POTASSIUM CHLORIDE PWD 20 MEQ PACK PO SCH ×3 (10:14→20:15)
--- NOTE | 2022-03-10 12:33 | Hospitalist Progress Note ---
Date of Service March 10, 2022 Assessment & Plan (1) Acute respiratory failure with hypoxia: Plan: - now extubated on 2-3L NC - Present on admission with worsening SOB, congestion and productive cough - CXR showed cardiomegaly. Multifocal airspace opacities compatible pneumonia. - CTA chest showed no evidence of pulmonary embolus in the main, lobar, or segmental pulmonary arteries. - Currently sedated and intubated on vent support - Sputum cx grew staph intermedius - concern for endocarditis but negative blood cultures - [facility] corn breeder evaluated and do not feel there is vegetation and even so, not candidate for AngioVac procedure - patient successfully extubated 03/08/2022 and tolerating well - will continue on vancomycin and meropenem for now given patient has now been afebrile for at least 24 hours - supplemental oxygen to maintain SpO2 >92% - on baseline 2-3L NC per patient (2) Multifocal pneumonia: Plan: - seen on CXR and CT chest - vent management as above - wean as tolerated - on broad abx with vanc, Zosyn, caspofungin per ID - will hold caspofungin for now as fungal smear and cultures negative so far - follow up ID - blood cultures negative to date - improving on CXR 03/08/2022 and extubated - respiratory status improving - continue to wean O2 as tolerated - on baseline 2-3L NC per patient - continue vancomycin and meropenem, azithromycin for now as patient has been afebrile for about 24 hours (3) Sepsis: Plan: - Met sepsis criteria on admission with tachycardia, leukocytosis, elevate RR - WBC 31.9 K, now trending down - lactic acid and procalcitonin elevated on admission - Pressor discontinued - BP maintaining - Blood cx on 03/03 and 03/04 no growth to date - ID consult on board - Currently on azithromycin, caspofungin, IV Zosyn and Vanco - hold caspofungin for now given negative cultures - spiking fevers on above - escalated to meropenem, Zosyn dc'd 03/08/2022 - repeat blood cultures 03/08/2022 - NGTD - vital stable - WBC now mproving and clinically much improved - sepsis resolving/resolved - continue to monitor closely (4) CHF (congestive heart failure): Plan: - BNP 516 on admission - Received IV lasix - ECHO showed severely reduced LV systolic function with severe global hypokinesis with EF 30-35% - cardiology on board - Continue Monitor I/O - will hold further diuretics at this point - monitor fluid status (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 there is not appear to be any abscess tract formation around the annulus, no clear indication for urgent surgery - Blood cx on 03/03 and 03/04 no growth - ID on board - Currently on broad spectrum abx with azithromycin, caspofungin, IV Zosyn and Vanco - Case discussed with cardiology Dr. Alexis Knight at [facility] for possible transfer for angio VAC treatment of endocarditis - follow up with CTS at [facility] does not believe this is vegetation but difficult to assess, STEVEN would be definitive, however, AngioVac procedure would not benefit patient and so patient will not be transferred at this time - will continue empiric treatment with IV abx as above - consider STEVEN if positive blood cultures or clinical deterioration - patient improving and cultures negative to date Plan DVT ppx: heparin SC Code Status: Full Code Dispo: ICU Dylon Aldrich MD Hospital Medicine Admission and Anticipated Discharge Date Admission Date: March 03, 2022 Subjective Patient with DM, OUD, admitted for acute hypoxic respiratory failure and diffuse pulmonary infiltrates on mechanical ventilation. On vancomycin, Zosyn, caspofungin per ID. Question of endocarditis, evaluated by [facility] Cardiology who do not feel patient would benefit from intervention on potential vegetation and not accepting transfer at this time. Blood cultures have been negative. Spiking fevers, Zosyn changed to meropenem 03/08/2022, repeat blood cultures 03/08/2022. Extubated successfully 03/08/2022. Downgraded from ICU 03/08/2022, tolerating minimal NC. Patient more awake today. Denies chest pain, shortness of breath, n/v/d, abdominal pain, dysuria. Reports she is on oxygen at baseline and feels breathing is at baseline. Patient has been afebrile for just over 24 hours now. Review of Systems Review of Systems: As per HPI, all other systems reviewed and negative Physical Exam Physical Exam: General- awake and alert, oriented x3. NAD Head- atraumatic Eyes- PERRL ENT- oral mucosa moist, no lesions noted Neck- supple, no JVD Lungs- on baseline 3L NC, no wheezing, CTAB Heart- regular rhythm; +systolic murmur Abdomen- normal bowel sounds, soft, nontender Extremities- no calf tenderness Neuro- AAOx3, no focal deficits Skin- warm & dry, No Osler's nodes or Janeway lesions identified Results & Data Results & Data ([facility]) Vital Signs (Past 12 Hours) Vital Signs Temp Pulse Resp BP Pulse Ox O2 Del Method O2 Flow Rate 03/10/22 11:28 36.3 C L 71 16 157/89 H 100 Nasal Cannula 3 03/10/22 08:00 36.3 C L 72 16 167/80 H 100 Nasal Cannula 3 03/10/22 07:23 Nasal Cannula 3 03/10/22 03:30 36.6 C 78 20 151/78 H 100 Nasal Cannula 3 Diagnostic Findings Laboratory Results WBC 14.12 K/ul (4.8-10.8) H 03/10/22 03:58 RBC 3.31 M/uL (3.93-5.22) L 03/10/22 03:58 Hgb 9.1 g/dl (12.0-16.0) L 03/10/22 03:58 POC Hgb 8.8 g/dl (12.0-16.0) L 03/08/22 04:09 Hct 27.6 % (34.1-44.9) L 03/10/22 03:58 POC Hct 26 % (37-47) L 03/08/22 04:09 MCV 83.4 fL (80.0-100.0) 03/10/22 03:58 MCH 27.5 pg (25.0-34.0) 03/10/22 03:58 MCHC 33.0 g/dL (32.0-36.0) 03/10/22 03:58 RDW Std Deviation 53.0 fL (36.4-46.3) H 03/10/22 03:58 RDW Coeff of Hannah 17.2 % (11.5-14.5) H 03/10/22 03:58 Plt Count 406 K/uL (130-400) H 03/10/22 03:58 MPV 9.1 fL (9.4-12.3) L 03/10/22 03:58 Immature Gran % (Auto) 3.0 % 03/10/22 03:58 Neut % (Auto) 61.8 % 03/10/22 03:58 Lymph % (Auto) 24.9 % 03/10/22 03:58 [place] % (Auto) 9.1 % 03/10/22 03:58 Eos % (Auto) 0.6 % 03/10/22 03:58 Baso % (Auto) 0.6 % 03/10/22 03:58 Neut # (Auto) 8.72 K/uL (1.4-6.5) H 03/10/22 03:58 Lymph # (Auto) 3.51 K/uL (1.2-3.4) H 03/10/22 03:58 [place] # (Auto) 1.28 K/uL (0.24-0.82) H 03/10/22 03:58 Eos # (Auto) 0.09 K/uL (0-0.50) 03/10/22 03:58 Baso # (Auto) 0.09 K/uL (0-0.2) 03/10/22 03:58 Immature Gran # (Auto) 0.43 K/uL (0.00-0.02) H 03/10/22 03:58 Neutrophils % (Manual) 94 % 03/03/22 04:20 Lymphocytes % (Manual) 2 % 03/03/22 04:20 Monocytes % (Manual) 3 % 03/03/22 04:20 Basophils % (Manual) 1 % 03/03/22 04:20 Neutrophils # (Manual) 30.06 K/uL (1.4-6.5) H 03/03/22 04:20 Total Absolute Neuts 30.06 K/uL (1.4-6.5) H 03/03/22 04:20 Lymphocytes # (Manual) 0.64 K/uL (1.2-3.4) L 03/03/22 04:20 Total Abs Lymphocytes 0.64 K/uL (1.2-3.4) L 03/03/22 04:20 Monocytes # (Manual) 0.96 K/uL (0.24-0.82) H 03/03/22 04:20 Basophils # (Manual) 0.32 K/uL (0-0.2) H 03/03/22 04:20 RBC Morphology Unremarkable 03/07/22 04:00 Echinocytes 2+ 03/03/22 04:20 Haptoglobin 211 mg/dL (43-212) 03/04/22 10:10 PT 12.7 Seconds (9.0-12.0) H 03/10/22 03:58 INR 1.2 (0.9-1.1) H 03/10/22 03:58 APTT 31.3 Seconds (21.0-31.0) H 03/03/22 04:20 PTT Ratio 1.1 03/03/22 04:20 Sample Site L Radial 03/08/22 04:09 POC pH 7.43 (7.35-7.45) 03/08/22 04:09 POC pCO2 33 mmHg (35-46) L 03/08/22 04:09 POC pO2 116 mmHg (80-95) H 03/08/22 04:09 POC HCO3 22 quinn/L (19-24) 03/08/22 04:09 POC Total CO2 23 mmol/L (24-31) L 03/08/22 04:09 POC Base Excess -3.0 quinn/L (-9-1.8) 03/08/22 04:09 ABG pH 7.48 (7.35-7.45) H 03/08/22 21:18 ABG pH (Temp Correct) 7.416 (7.35-7.45) 03/08/22 04:09 ABG pCO2 23 mmHg (35-46) L 03/08/22 21:18 ABG pCO2 (Temp Corrct 34 mmHg (35-46) L 03/08/22 04:09 ABG pO2 101 mmHg (80-95) H 03/08/22 21:18 POC ABG pO2 at Pt Temp 120 03/08/22 04:09 ABG HCO3 17 mmol/L (19-24) L 03/08/22 21:18 POC ABG O2 Sat 99.0 % (90-95) H 03/08/22 04:09 ABG O2 Saturation > 100.0 % (90-95) H 03/08/22 21:18 ABG Base Excess -4.5 mEq/L (-9-1.8) 03/08/22 21:18 Caesar Test Pos (Pos) 03/08/22 21:18 VBG pH Cancelled 03/03/22 04:20 VBG pCO2 Cancelled 03/03/22 04:20 VBG pO2 Cancelled 03/03/22 04:20 VBG HCO3 Cancelled 03/03/22 04:20 VBG O2 Saturation Cancelled 03/03/22 04:20 VBG Base Excess Cancelled 03/03/22 04:20 Barometric Pressure Cancelled 03/03/22 04:20 Oxygen Given 3L 03/08/22 21:18 O2 Delivery Device Ventilator 03/08/22 04:09 POC O2 Rate 16 03/08/22 04:09 POC FiO2 30 % 03/07/22 05:24 Tidal Volume 330 03/03/22 10:06 PEEP 5 03/08/22 04:09 POC Sodium 144 mmol/L (135-144) 03/08/22 04:09 Sodium 140 mmol/L (136-145) 03/10/22 03:58 POC Potassium 3.5 mmol/L (3.3-5.0) 03/08/22 04:09 Potassium 3.3 mmol/L (3.5-5.1) L 03/10/22 03:58 Chloride 110 mmol/L (98-107) H 03/10/22 03:58 Carbon Dioxide 21 mmol/L (21-32) 03/10/22 03:58 Anion Gap 9 (3-11) 03/10/22 03:58 BUN 19 mg/dl (6-23) 03/10/22 03:58 Creatinine 0.90 mg/dl (0.6-1.2) 03/10/22 03:58 Est Cr Clr Drug Dosing 78.8 ml/min 03/10/22 03:58 Est GFR ( Amer) 90.1 ml/min 03/10/22 03:58 Est GFR (Non-Af Amer) 77.8 ml/min 03/10/22 03:58 BUN/Creatinine Ratio 21.1 (10-20) H 03/10/22 03:58 Glucose 132 mg/dl (70-99(Fasting)) H 03/10/22 03:58 POC Glucose 107 mg/dl (70-99) H 03/10/22 11:52 POC Glucose (other) 128 mg/dl (70-99) H 03/03/22 20:26 Estimat Average Glucose 117 mg/dl 03/07/22 04:00 Hemoglobin A1c 5.7 % (4.5-5.6) H 03/07/22 04:00 Osmolality 269 mOsm/kg (280-300) L 03/03/22 06:08 Lactate 2.1 mmol/L (0.4-2.0) H* 03/03/22 12:27 Calcium 8.9 mg/dl (8.5-10.1) 03/10/22 03:58 Phosphorus 3.0 mg/dl (2.5-4.9) 03/10/22 03:58 Magnesium 1.8 mg/dl (1.7-2.4) 03/10/22 03:58 Total Bilirubin 0.7 mg/dl (0.2-1.0) 03/09/22 05:35 Direct Bilirubin 0.2 mg/dl (0-0.2) 03/09/22 05:35 AST 28 U/L (13-39) 03/09/22 05:35 ALT 18 U/L (7-52) 03/09/22 05:35 Alkaline Phosphatase 98 U/L (34-104) 03/09/22 05:35 Ammonia 40.0 umol/L (18-72) 03/08/22 21:18 Lactate Dehydrogenase 619 U/L (86-244) H 03/04/22 10:10 Troponin I High Sens 91.7 pg/ml (0-14) H* D 03/03/22 06:08 B-Natriuretic Peptide 516 pg/ml (0-100) H 03/03/22 09:38 Total Protein 7.8 gm/dl (6.0-8.3) 03/09/22 05:35 Albumin 4.0 gm/dl (3.4-5.0) 03/09/22 05:35 Globulin 3.0 gm/dl (2.5-4.0) 03/06/22 04:31 Albumin/Globulin Ratio 1.1 (0.9-2) 03/06/22 04:31 Triglycerides 193 mg/dl (0-150) H 03/07/22 09:47 Procalcitonin 0.46 ng/ml (0-0.5) 03/04/22 10:10 TSH 0.451 uIu/ml (0.300-4.500) 03/03/22 06:08 Urine Color Yellow 03/03/22 05:25 Urine Appearance Cloudy (Clear) A 03/03/22 05:25 Urine pH 5.0 (4.5-7.5) 03/03/22 05:25 Ur Specific Amalia 1.012 (1.000-1.030) 03/03/22 05:25 Urine Protein Negative (Negative) 03/03/22 05:25 Urine Glucose (UA) Negative (Negative) 03/03/22 05:25 Urine Ketones Negative (Negative) 03/03/22 05:25 Urine Blood Negative (Negative) 03/03/22 05:25 Urine Nitrite Negative (Negative) 03/03/22 05:25 Urine Bilirubin Negative (Negative) 03/03/22 05:25 Urine Urobilinogen Negative (Negative) 03/03/22 05:25 Ur Leukocyte Esterase Trace (Negative) H 03/03/22 05:25 Urine WBC (Auto) 1-5 /hpf (0-5) 03/03/22 05:25 Urine RBC (Auto) 0-4 /hpf (0-4) 03/03/22 05:25 U Hyaline Cast (Auto) 1-5 /lpf (0-5) 03/03/22 05:25 U Epithel Cells (Auto) >30 /lpf (0-5) H 03/03/22 05:25 Urine Bacteria (Auto) 1+ (Negative) H 03/03/22 05:25 Urine Osmolality 258 mOsm/kg (500-800) L 03/03/22 11:20 Ur Random Sodium 50 mmol/L 03/03/22 11:20 Nasal Screen MRSA (PCR) Negative (Negative) 03/03/22 08:07 Stl C. diff Tox B Gene Negative Cdiff Gene (Neg) 03/10/22 02:50 Vancomycin Trough 16.9 mcg/ml (10-20) 03/08/22 05:17 Random Vancomycin 21.4 mcg/ml (10-20) H 03/07/22 04:00 Ur Butalbital Confirm Cancelled 03/04/22 13:10 Urine Opiates Screen Cancelled 03/04/22 13:10 Urine Opiates Screen Neg (Neg) 03/04/22 13:10 U Codeine Confrm GC/MS Cancelled 03/04/22 13:10 Ur Morphine (GC/MS) Cancelled 03/04/22 13:10 Ur Hydrocodone (GC/MS) Cancelled 03/04/22 13:10 U Norhydrocodone Conf Cancelled 03/04/22 13:10 Ur Oxycodone Screen Cancelled 03/04/22 13:10 U Noroxycodone Confirm Cancelled 03/04/22 13:10 Ur Oxycodone GC/MS Cancelled 03/04/22 13:10 U Oxymorphone GC/MS Cancelled 03/04/22 13:10 EDDP Confirm Cancelled 03/04/22 13:10 Ur Methadone, Qual Cancelled 03/04/22 13:10 Ur Methadone, Qual Neg (Neg) 03/04/22 13:10 Ur Methadone Cancelled 03/04/22 13:10 Ur Hydromorphone (GC/MS) Cancelled 03/04/22 13:10 Urine Barbiturates Cancelled 03/04/22 13:10 Urine Barbiturates Neg (Neg) 03/04/22 13:10 Ur Phencyclidine Scrn Cancelled 03/04/22 13:10 Ur Phencyclidine (PCP) Neg (Neg) 03/04/22 13:10 Urine PCP Confirm Cancelled 03/04/22 13:10 Ur Amphetamines Screen Cancelled 03/04/22 13:10 U Amphetamines Confirm Cancelled 03/04/22 13:10 U Amphetamin/Meth Scrn Neg (Neg) 03/04/22 13:10 Methamphetamine GC/MS Cancelled 03/04/22 13:10 MDMA (Ecstasy) Screen Neg (Neg) 03/04/22 13:10 Ur Amobarbital GC/MS Cancelled 03/04/22 13:10 U Pentobarbital GC/MS Cancelled 03/04/22 13:10 U Phenobarbital GC/MS Cancelled 03/04/22 13:10 U Secobarbital GC/MS Cancelled 03/04/22 13:10 U OH-Alprazolam Confrm NEGATIVE ng/mL (<25) 03/04/22 13:10 U [id number] GC/MS Cancelled 03/04/22 13:10 U Benzodiazepines Scrn Cancelled 03/04/22 13:10 U Benzodiazepines Scrn Pos (Neg) H 03/04/22 13:10 7-Amino Clonazepam NEGATIVE ng/mL (<25) 03/04/22 13:10 U 7-Aminoclonazepam Screen Cancelled 03/04/22 13:10 Ur Nordiazepam Confirm NEGATIVE ng/mL (<50) 03/04/22 13:10 Ur Nordiazepam GC/MS Cancelled 03/04/22 13:10 U OH-ethylflurazepam NEGATIVE ng/mL (<50) 03/04/22 13:10 U OH-ethylfluraz GC/MS Cancelled 03/04/22 13:10 U Lorazepam Cnf GC/MS Cancelled 03/04/22 13:10 U Lorazepam Cnf GC/MS NEGATIVE ng/mL (<50) 03/04/22 13:10 U Oxazepam Confm GC/MS Cancelled 03/04/22 13:10 U Oxazepam Confm GC/MS NEGATIVE ng/mL (<50) 03/04/22 13:10 Ur Temazepam Confirm NEGATIVE ng/mL (<50) 03/04/22 13:10 Ur Temazepam Cnf GC/MS Cancelled 03/04/22 13:10 U a-Hydroxytriaz GC/MS Cancelled 03/04/22 13:10 U OH-Triazolam Confirm NEGATIVE ng/mL (<50) 03/04/22 13:10 U [id number] Cancelled 03/04/22 13:10 U OH-Midazolam Confirm 408 ng/mL (<50) H 03/04/22 13:10 Urine Cocaine Cancelled 03/04/22 13:10 Ur Cocaine Metabolite Neg (Neg) 03/04/22 13:10 U Cocaine Metab Confirm Cancelled 03/04/22 13:10 Tetrahydrocannabinol Cancelled 03/04/22 13:10 U Marijuana (THC) Screen Cancelled 03/04/22 13:10 U Marijuana (THC) Screen Neg (Neg) 03/04/22 13:10 Drug Screen Comment Cancelled 03/04/22 13:10 Drug Screen Comment SEE NOTE 03/04/22 13:10 C.trachomatis RNA Not Detected (NotDetected) 03/08/22 10:56 SARS-CoV-2 (PCR) NEGATIVE (Negative) 03/03/22 04:00 HCV RNA (PCR) IUs/ml 4500 IU/mL (NOT DETECTED) H 03/06/22 10:31 HCV RNA PCR log IUs/ml 3.65 Log IU/mL (NOT DETECTED) H 03/06/22 10:31 HIV-1 RNA copies/mL Not Detected Copies/mL 03/06/22 10:31 HIV-1 RNA logcopies/mL Not Detected Log cps/mL 03/06/22 10:31 HIV (1&2) Ag & Ab Conf NON-REACTIVE (NON-REACTIVE) 03/06/22 10:31 Influenza Type A (PCR) Negative (Neg) 03/03/22 04:00 Influenza Type B (PCR) Negative (Neg) 03/03/22 04:00 Urine Legionella Ag SEE NOTE 03/08/22 10:56 RSV (RT-PCR) Negative (Neg) 03/03/22 04:00 Reference Lab Cancelled 03/04/22 13:10 Impressions Chest CTA 03/06/22 15:47 CT ANGIOGRAM OF THE CHEST CLINICAL HISTORY: Respiratory failure. COMPARISON STUDY: Chest x-ray dated 03/06/2022. Chest CT dated 07/10/2021. TECHNIQUE: Following the IV administration of 119 cc of Optiray 320, CT angiogram of the chest was performed from the upper abdomen to the thoracic inlet utilizing the pulmonary embolus protocol. Images are reviewed in the axial, sagittal, and coronal planes. 3-D MIPS images are created and assessed. IV contrast was administered without complication. A dose lowering technique was utilized adhering to the principles of ALARA. The examination is severely degraded by motion artifact. There is also streak artifact from the arms which could not be elevated above the chest. CT DOSE: 779.91 mGy.cm FINDINGS: Thyroid: The thyroid gland is enlarged and heterogeneous. Low-attenuation nodules measure up to 1.6 cm. Thoracic aorta: There is mild atherosclerotic calcification of the thoracic aor ta, which is normal in caliber and demonstrates standard 3-vessel arch anatomy. No dissection is seen. Pulmonary vasculature: The pulmonary trunk is normal in caliber. There are no filling defects identified in main, lobar, or segmental pulmonary branches to suggest pulmonary embolus. Evaluation of the subsegmental branches is degraded by motion artifact. Heart: A left subclavian central venous catheter is in place. The heart is mildly enlarged and without pericardial effusion. The coronary arteries are densely calcified. Lungs and pleural spaces: An endotracheal tube terminates at the level of the misti. Extensive/diffuse groundglass consolidation is seen throughout both lungs. Foci of air trapping are seen at the left lung base. There is associated intralobular septal thickening. Mediastinum: There is bulky mediastinal lymphadenopathy. A subcarinal node measures 3.8 cm short axis. Prevascular nodes measure up to 1.4 cm short axis. Sameera: There is bilateral hilar adenopathy. Hilar nodes measure up to 1.6 cm in short axis. Axillae: There is no axillary lymphadenopathy. Upper abdomen: An enteric tube is in place. This extends below the diaphragm into the stomach. The liver is enlarged and steatotic. Reflux of contrast into the IVC and hepatic veins suggest cardiac dysfunction. The spleen is enlarged. Skeletal structures: The skeletal structures are osteopenic. There is a mild superior endplate compression deformity of L1. No lytic or blastic bony lesions are seen. IMPRESSION: 1. Streak and motion compromised examination 2. An endotracheal tube terminates at the level of the misti. Consider repositioning. 3. There is no evidence of pulmonary embolus in the main, lobar, or segmental pulmonary arteries. 4. Cardiomegaly and coronary artery calcification. 5. Groundglass consolidation is seen throughout both lungs with associated intralobular septal thickening. Differential considerations include pulmonary edema, multifocal pneumonia, and/or ARDS. Clinical correlation will be essential and radiographic follow-up to resolution is recommended. 6. There is bulky mediastinal and hilar lymphadenopathy. Clinical correlation required. 7. Hepatomegaly with hepatic steatosis. 8. Splenomegaly. 9. Enlarged multinodular thyroid gland. Nonemergent/outpatient thyroid ultrasound is recommended in follow-up. 10. Additional findings as above. ACT 112: Negative or not required by law. Electronically signed by: Ja Villanueva M.D. 03/06/2022 5:[address] 03/07/22 14:[address] DOSE: 691.05 mGy.cm HISTORY: Altered mental status. TECHNIQUE: Multiaxial CT images of the head were performed without the use of intravenous contrast. Automated exposure control was utilized for this study. A dose lowering technique was utilized adhering to the principles of ALARA. Comparison: Head CT 09/07/2021. Findings: Partially visualized endotracheal tube and orogastric tube noted. The paranasal sinuses and right mastoid air cells are clear. Small left mastoid effusion. The calvarium and skull base are intact. The ventricles and sulci are within normal limits. There is no mass, hematoma, midline shift, or acute infarct. Impression: No acute intracranial abnormality. Partially visualized endotracheal tube and orogastric tube noted. ACT 112: Negative or not required by law. Electronically signed by: Arnol Kenney M.D. 03/07/2022 3:39 PM Chest X-Ray 03/08/22 07:00 SINGLE VIEW CHEST CLINICAL HISTORY: Respiratory failure. FINDINGS: An AP, portable, upright chest radiograph is compared to chest x-ray and chest CT dated 03/06/2022. An endotracheal tube, enteric tube, and a left subclavian central venous catheter are again noted. The heart is enlarged. There is pulmonary vascular congestion. Bilateral airspace opacities are again seen throughout both lungs. These have modestly cleared from yesterday. No large pleural effusion or pneumothorax is seen. The bony thorax is grossly intact. IMPRESSION: 1. Lines and tubes as above. 2. Cardiomegaly with pulmonary vascular congestion. 3. Bilateral airspace opacities could represent pulmonary edema and/or multifocal pneumonia. This has modestly cleared as compared to yesterday. ACT 112: Negative or not required by law. Electronically signed by: Ja Villanueva M.D. 03/08/2022 12:39 PM Medications Administered Current Inpatient Medications Acetaminophen (Acetaminophen 500 Mg Tab) 500 mg PO Q6H PRN PRN Reason: pain/fever Stop: 04/02/22 07:55 Last Admin: 03/09/22 12:14 Dose: 500 mg Aspirin (Aspirin 81 Mg Chew) 81 mg PO DAILY [facility] Stop: 04/02/22 10:14 Last Admin: 03/10/22 08:38 Dose: 81 mg Atorvastatin Calcium (Atorvastatin 40 Mg Tab) 80 mg PO DAILY [facility] Stop: 04/02/22 08:59 Last Admin: 03/10/22 08:40 Dose: 80 mg Azithromycin (Azithromycin 250 Mg Tab) 500 mg PO QAM [facility] Stop: 03/12/22 08:59 Last Admin: 03/10/22 08:41 Dose: 500 mg Clopidogrel Bisulfate (Clopidogrel Bisulfate 75 Mg Tab) 75 mg PO DAILY [facility] Stop: 04/02/22 08:59 Last Admin: 03/10/22 08:39 Dose: 75 mg Dextrose (Dextrose 50% 50 Ml Syringe) 25 - 50 ml IV UD PRN; Protocol PRN Reason: Hypoglycemia Protocol Stop: 04/02/22 07:55 Docusate Sodium (Docusate Sodium Syrup 100 Mg/10 Ml Udc) 100 mg PO BID [facility] Stop: 04/05/22 20:59 Last Admin: 03/10/22 08:41 Dose: Not Given Enoxaparin Sodium (Enoxaparin Inj 40 Mg/0.4 Ml Syr) 40 mg SQ QAM [facility] Stop: 04/07/22 08:59 Last Admin: 03/10/22 08:54 Dose: Not Given Escitalopram Oxalate (Escitalopram Oxalate 20 Mg Tab) 20 mg PO DAILY [facility] Stop: 04/02/22 08:59 Last Admin: 03/10/22 08:40 Dose: 20 mg Famotidine (Famotidine 20 Mg Tab) 20 mg PO BID [facility] Stop: 04/02/22 20:59 Last Admin: 03/10/22 08:39 Dose: 20 mg Gabapentin (Gabapentin 250 Mg/5 Ml 470 Ml Btl) 300 mg PO TID [facility] Stop: 04/08/22 13:59 Last Admin: 03/10/22 08:49 Dose: 300 mg Glucagon (Glucagon For Inj 1 Mg Vial) 1 mg SQ UD PRN; Protocol PRN Reason: Hypoglycemia Protocol Stop: 04/02/22 07:55 Glucose (Glucose 40% Gel 15 Gm Tube) 15 - 30 gm PO UD PRN; Protocol PRN Reason: Hypoglycemia Protocol Stop: 04/02/22 07:55 Glucose (Glucose 10 Tab/Tube) 4 - 8 tab PO UD PRN; Protocol PRN Reason: Hypoglycemia Treatment Stop: 04/02/22 07:55 Vancomycin HCl 1,000 mg/ (Sodium Chloride) 270 mls @ 200 mls/hr IV Q12H [facility]; Protocol Stop: 04/15/22 17:59 Last Infusion: 03/10/22 07:22 Dose: Infused Caspofungin 150 mg/ Sodium (Chloride) 310 mls @ 260 mls/hr IV Q24H [facility] Stop: 04/17/22 10:29 Last Infusion: 03/10/22 11:34 Dose: Infused Meropenem 2,000 mg/ Sodium (Chloride) 100 mls @ 200 mls/hr IV Q8H [facility]; Protocol Stop: 04/19/22 09:59 Last Infusion: 03/10/22 10:44 Dose: Infused Insulin Aspart (Insulin Aspart Per Unit) 0 units SC ACHS [facility] Stop: 04/08/22 16:29 Last Admin: 03/10/22 08:37 Dose: 5 units Ipratropium Hiko (Ipratropium Hiko Neb Soln 0.02% 2.5 Ml Vial) 0.5 mg INH QIDR PRN PRN Reason: Wheezing Stop: 04/02/22 10:59 Levalbuterol HCl (Levalbuterol 1.25mg/0.5ml Neb) 1.25 mg INH QIDR PRN PRN Reason: Wheezing Stop: 04/02/22 10:59 Levetiracetam (Levetiracetam Soln 500 Mg/5 Ml Udp) 500 mg PO Q12 WILMA Stop: 04/08/22 20:59 Last Admin: 03/10/22 08:39 Dose: 500 mg Miscellaneous (Carbohydrates For Hypoglycemia ) 15 - 30 gm PO UD PRN PRN Reason: Hypoglycemia Protocol Stop: 04/02/22 07:55 Miscellaneous Information (Vancomycin Consult Active) 1 each N/A UD PRN PRN Reason: Consult Stop: 04/03/22 09:06 Miscellaneous Information (Pharmacy Glycemic Mgmt Consult) 1 each N/A UD PRN; Protocol PRN Reason: Consult Stop: 04/04/22 09:42 Morphine Sulfate (Morphine Sulfate 2 Mg/Ml Carp) 2 mg IV Q4H PRN PRN Reason: Pain Stop: 03/23/22 09:31 Last Admin: 03/10/22 08:43 Dose: 2 mg Polyethylene Glycol (Polyethylene (Miralax) 17 Gm Pack) 17 gm PO DAILY WILMA Stop: 04/05/22 09:34 Last Admin: 03/10/22 08:41 Dose: Not Given Potassium Chloride (Potassium Chloride Pwd 20 Meq Pack) 20 meq PO TID WILMA Stop: 03/11/22 07:59 Last Admin: 03/10/22 10:14 Dose: 20 meq Sennosides (Sennosides 8.8 Mg/5 Ml Udc) 8.8 mg PO QAM WILMA Stop: 04/05/22 09:44 Last Admin: 03/10/22 08:42 Dose: Not Given Topiramate (Topiramate 25 Mg Tab) 25 mg PO BID WILMA Stop: 04/02/22 08:59 Last Admin: 03/10/22 10:14 Dose: 25 mg (1) CHF (congestive heart failure) Heart failure chronicity: acute Heart failure type: unspecified Qualified Code(s): I50.9 - Heart failure, unspecified
[2022-03-10 19:25] LABS: Fungitell (1-3)-B-D-Glucan <31 pg/mL
[2022-03-10] MEDS: ACETAMINOPHEN 500 MG TAB PO PRN (20:14)
[2022-03-11] MEDS: MoRPHine SULFATE 2 MG/ML CARP IV PRN ×6 (02:05→22:21)
[2022-03-11] MEDS: MEROPENEM 2,000 MG in 0.9 % SODIUM CHLORIDE 58 ML IV SCH ×3 (02:05→18:19)
[2022-03-11 05:25] LABS: Hematocrit (blood only) 27.7 % (34.1-44.9); Mean Corpuscular Hemoglobin 27.4 pg (25.0-34.0); Mean Corpuscular Hgb Conc 32.5 g/dL (32.0-36.0); Mean Corpuscular Volume 84.2 fL (80.0-100.0); Mean Platelet Volume 9.3 fL (9.4-12.3); Platelet Count 371 K/uL (130-400); RDW Standard Deviation 51.8 fL (36.4-46.3); Red Blood Count 3.29 M/uL (3.93-5.22); White Blood Count 13.02 K/ul (4.8-10.8)
[2022-03-11] MEDS ORDERED: VANCOMYCIN LEVEL ONE (05:30)
[2022-03-11 05:48] LABS: BUN Creatinine Ratio 23.6 (10-20); Calcium 8.8 mg/dl (8.5-10.1); Creatinine Clr Calc Pharmacy 80.3 ml/min; Est GFR (African American) 91.4 ml/min; Est GFR (Non-African American) 78.8 ml/min; Magnesium 1.8 mg/dl (1.7-2.4); Phosphorus 3.5 mg/dl (2.5-4.9); Potassium 3.8 mmol/L (3.5-5.1)
[2022-03-11] MEDS: VANCOMYCIN HCL 1,000 MG in SODIUM CHLORIDE 0.9% 250 ML IV SCH ×2 (06:52→18:19)
[2022-03-11] MEDS: FAMOTIDINE 20 MG TAB PO SCH ×2 (08:07→20:17)
[2022-03-11] MEDS: TOPIRAMATE 25 MG TAB PO SCH ×2 (08:07→20:18)
[2022-03-11] MEDS: AZITHROMYCIN 250 MG TAB PO SCH (08:08)
[2022-03-11] MEDS: POLYETHYLENE (MIRALAX) 17 GM PACK PO SCH (08:08)
[2022-03-11] MEDS: SENNOSIDES 8.8 MG/5 ML UDC PO SCH (08:08)
[2022-03-11] MEDS: ATORVASTATIN 40 MG TAB PO SCH (08:08)
[2022-03-11] MEDS: CLOPIDOGREL BISULFATE 75 MG TAB PO SCH (08:09)
[2022-03-11] MEDS: ENOXAPARIN INJ 40 MG/0.4 ML SYR SQ SCH (08:09)
[2022-03-11] MEDS: ESCITALOPRAM OXALATE 20 MG TAB PO SCH (08:09)
[2022-03-11] MEDS: DOCUSATE SODIUM SYRUP 100 MG/10 ML UDC PO SCH ×2 (08:09→20:47)
[2022-03-11] MEDS: ASPIRIN 81 MG CHEW PO SCH (08:19)
[2022-03-11] MEDS: INSULIN ASPART PER UNIT SC SCH ×4 (08:58→20:18)
[2022-03-11] MEDS: GABAPENTIN 300 MG CAP PO SCH ×3 (09:17→20:17)
--- NOTE | 2022-03-11 10:27 | Pharmacy Report ---
Pharmacy PK ABX Note - Date of Service March 11, 2022 - Assessment and Plan Assessment 03/11 * Patient afebrile for past 48 hours, completes azithromycin today, caspofungin held as fungal cultures negative, WBC downtrending. Continuing meropenem/vancomycin for now. 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 Blood cultures negative to date, sputum culture (+) Staph intermedius, methicillin sensitive (MRSA nasal negative). Fungal culture/[id number] pending. Mycoplasma, Brucella, Bartonella serology pending. Extubated this AM. Resolving AJIT/renal function stable. ID consulted. Day #5 of antimicrobial therapy. Plan 03/11: * Trough level this AM 18.5 mcg/mL, predicts therapeutic AUC/YENNI * Continue vancomycin 1 gm IV q12H * Repeat level 3-4 days or sooner if clinically indicated 03/08:Vancomycin * Trough level this AM 16.9mcg/mL (true trough), AUC/YENNI-580mg/L.hr - therapeutic * Continue vancomycin 1gm IV q12h * Repeat level ~48hr or sooner if clinically indicated Pharmacy will continue to follow and will adjust dose/frequency as necessary. Thank you. Pharmacy has transitioned to AUC monitoring for vancomycin. AUC/YENNI is the preferred PK/PD target and is associated with decreased risk of nephrotoxicity compared to traditional trough targets.
--- NOTE | 2022-03-11 14:20 | Hospitalist Progress Note ---
Date of Service March 11, 2022 Assessment & Plan (1) Acute respiratory failure with hypoxia: Plan: - now extubated on 2-3L NC - Present on admission with worsening SOB, congestion and productive cough - CXR showed cardiomegaly. Multifocal airspace opacities compatible pneumonia. - CTA chest showed no evidence of pulmonary embolus in the main, lobar, or segmental pulmonary arteries. - Currently sedated and intubated on vent support - Sputum cx grew staph intermedius - concern for endocarditis but negative blood cultures - [facility] veterinary nurse evaluated and do not feel there is vegetation and even so, not candidate for AngioVac procedure - patient successfully extubated 03/08/2022 and tolerating well - will continue on vancomycin and meropenem - supplemental oxygen to maintain SpO2 >92% - on baseline 2-3L NC per patient (2) Multifocal pneumonia: Plan: - seen on CXR and CT chest - vent management as above - wean as tolerated - on broad abx with vanc, Zosyn, caspofungin per ID - will hold caspofungin for now as fungal smear and cultures negative so far - follow up ID - blood cultures negative to date - improving on CXR 03/08/2022 and extubated - respiratory status improving - continue to wean O2 as tolerated - on baseline 2-3L NC per patient - continue vancomycin and meropenem, azithromycin for now (3) Sepsis: Plan: - Met sepsis criteria on admission with tachycardia, leukocytosis, elevate RR - WBC 31.9 K, now trending down - lactic acid and procalcitonin elevated on admission - Pressor discontinued - BP maintaining - Blood cx on 03/03 and 03/04 no growth to date - ID consult on board - Currently on azithromycin, caspofungin, IV Zosyn and Vanco - hold caspofungin for now given negative cultures - spiking fevers on above - escalated to meropenem, Zosyn dc'd 03/08/2022 - repeat blood cultures 03/08/2022 - NGTD - vital stable - WBC now mproving and clinically much improved - sepsis resolving/resolved - continue to monitor closely - will repeat TTE to evaluate for endocarditis - if negative will treat for 7-10 days of pneumonia (4) CHF (congestive heart failure): Plan: - BNP 516 on admission - Received IV lasix - ECHO showed severely reduced LV systolic function with severe global hypokinesis with EF 30-35% - cardiology on board - Continue Monitor I/O - will hold further diuretics at this point - monitor fluid status (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 there is not appear to be any abscess tract formation around the annulus, no clear indication for urgent surgery - Blood cx on 03/03 and 03/04 no growth - ID on board - Currently on broad spectrum abx with azithromycin, caspofungin, IV Zosyn and Vanco - Case discussed with cardiology Dr. Alexis Knight at [facility] for possible transfer for angio VAC treatment of endocarditis - follow up with CTS at [facility] does not believe this is vegetation but difficult to assess, STEVEN would be definitive, however, AngioVac procedure would not benefit patient and so patient will not be transferred at this time - will continue empiric treatment with IV abx as above - consider STEVEN if positive blood cultures or clinical deterioration - patient improving and cultures negative to date - will repeat TTE and evaluate valves - if negative - treat for pneumonia as above Plan DVT ppx: heparin SC Code Status: Full Code Dispo: telemetry Dylon Aldrich MD Hospital Medicine Admission and Anticipated Discharge Date Admission Date: March 03, 2022 Subjective Patient with DM, OUD, admitted for acute hypoxic respiratory failure and diffuse pulmonary infiltrates on mechanical ventilation. On vancomycin, Zosyn, caspofungin per ID. Question of endocarditis, evaluated by [facility] Cardiology who do not feel patient would benefit from intervention on potential vegetation and not accepting transfer at this time. Blood cultures have been negative. Spiking fevers, Zosyn changed to meropenem 03/08/2022, repeat blood cultures 03/08/2022. Extubated successfully 03/08/2022. Downgraded from ICU 03/08/2022, tolerating minimal NC. Patient awake and alert. Denies chest pain, shortness of breath, n/v/d, abdominal pain, dysuria. Reports she is on oxygen at baseline and feels breathing is at baseline. Review of Systems Review of Systems: As per HPI, all other systems reviewed and negative Physical Exam Physical Exam: General- awake and alert, oriented x3. NAD Head- atraumatic Eyes- PERRL ENT- oral mucosa moist, no lesions noted Neck- supple, no JVD Lungs- on baseline 3L NC, no wheezing, CTAB Heart- regular rhythm; +systolic murmur Abdomen- normal bowel sounds, soft, nontender Extremities- no calf tenderness Neuro- AAOx3, no focal deficits Skin- warm & dry, No Osler's nodes or [place] lesions identified Results & Data Results & Data ([facility]) Vital Signs (Past 12 Hours) Vital Signs Temp Pulse Pulse Resp BP Pulse Ox O2 Del Method 03/11/22 10:15 Nasal Cannula 03/11/22 08:00 71 03/11/22 07:28 36.4 C L 75 18 149/80 H 100 Nasal Cannula 03/11/22 02:46 36.8 C 73 18 120/57 L 96 Nasal Cannula O2 Flow Rate 03/11/22 10:15 2 03/11/22 08:00 03/11/22 07:28 2 03/11/22 02:46 2 Diagnostic Findings Laboratory Results WBC 13.02 K/ul (4.8-10.8) H 03/11/22 05:18 RBC 3.29 M/uL (3.93-5.22) L 03/11/22 05:18 Hgb 9.0 g/dl (12.0-16.0) L 03/11/22 05:18 POC Hgb 8.8 g/dl (12.0-16.0) L 03/08/22 04:09 Hct 27.7 % (34.1-44.9) L 03/11/22 05:18 POC Hct 26 % (37-47) L 03/08/22 04:09 MCV 84.2 fL (80.0-100.0) 03/11/22 05:18 MCH 27.4 pg (25.0-34.0) 03/11/22 05:18 MCHC 32.5 g/dL (32.0-36.0) 03/11/22 05:18 RDW Std Deviation 51.8 fL (36.4-46.3) H 03/11/22 05:18 RDW Coeff of Hannah 17.0 % (11.5-14.5) H 03/11/22 05:18 Plt Count 371 K/uL (130-400) 03/11/22 05:18 MPV 9.3 fL (9.4-12.3) L 03/11/22 05:18 Immature Gran % (Auto) 3.0 % 03/10/22 03:58 Neut % (Auto) 61.8 % 03/10/22 03:58 Lymph % (Auto) 24.9 % 03/10/22 03:58 Hoke % (Auto) 9.1 % 03/10/22 03:58 Eos % (Auto) 0.6 % 03/10/22 03:58 Baso % (Auto) 0.6 % 03/10/22 03:58 Neut # (Auto) 8.72 K/uL (1.4-6.5) H 03/10/22 03:58 Lymph # (Auto) 3.51 K/uL (1.2-3.4) H 03/10/22 03:58 [place]oke # (Auto) 1.28 K/uL (0.24-0.82) H 03/10/22 03:58 Eos # (Auto) 0.09 K/uL (0-0.50) 03/10/22 03:58 Baso # (Auto) 0.09 K/uL (0-0.2) 03/10/22 03:58 Immature Gran # (Auto) 0.43 K/uL (0.00-0.02) H 03/10/22 03:58 Neutrophils % (Manual) 94 % 03/03/22 04:20 Lymphocytes % (Manual) 2 % 03/03/22 04:20 Monocytes % (Manual) 3 % 03/03/22 04:20 Basophils % (Manual) 1 % 03/03/22 04:20 Neutrophils # (Manual) 30.06 K/uL (1.4-6.5) H 03/03/22 04:20 Total Absolute Neuts 30.06 K/uL (1.4-6.5) H 03/03/22 04:20 Lymphocytes # (Manual) 0.64 K/uL (1.2-3.4) L 03/03/22 04:20 Total Abs Lymphocytes 0.64 K/uL (1.2-3.4) L 03/03/22 04:20 Monocytes # (Manual) 0.96 K/uL (0.24-0.82) H 03/03/22 04:20 Basophils # (Manual) 0.32 K/uL (0-0.2) H 03/03/22 04:20 RBC Morphology Unremarkable 03/07/22 04:00 Echinocytes 2+ 03/03/22 04:20 Haptoglobin 211 mg/dL (43-212) 03/04/22 10:10 PT 12.7 Seconds (9.0-12.0) H 03/10/22 03:58 INR 1.2 (0.9-1.1) H 03/10/22 03:58 APTT 31.3 Seconds (21.0-31.0) H 03/03/22 04:20 PTT Ratio 1.1 03/03/22 04:20 Sample Site L Radial 03/08/22 04:09 POC pH 7.43 (7.35-7.45) 03/08/22 04:09 POC pCO2 33 mmHg (35-46) L 03/08/22 04:09 POC pO2 116 mmHg (80-95) H 03/08/22 04:09 POC HCO3 22 quinn/L (19-24) 03/08/22 04:09 POC Total CO2 23 mmol/L (24-31) L 03/08/22 04:09 POC Base Excess -3.0 quinn/L (-9-1.8) 03/08/22 04:09 ABG pH 7.48 (7.35-7.45) H 03/08/22 21:18 ABG pH (Temp Correct) 7.416 (7.35-7.45) 03/08/22 04:09 ABG pCO2 23 mmHg (35-46) L 03/08/22 21:18 ABG pCO2 (Temp Corrct 34 mmHg (35-46) L 03/08/22 04:09 ABG pO2 101 mmHg (80-95) H 03/08/22 21:18 POC ABG pO2 at Pt Temp 120 03/08/22 04:09 ABG HCO3 17 mmol/L (19-24) L 03/08/22 21:18 POC ABG O2 Sat 99.0 % (90-95) H 03/08/22 04:09 ABG O2 Saturation > 100.0 % (90-95) H 03/08/22 21:18 ABG Base Excess -4.5 mEq/L (-9-1.8) 03/08/22 21:18 Caesar Test Pos (Pos) 03/08/22 21:18 VBG pH Cancelled 03/03/22 04:20 VBG pCO2 Cancelled 03/03/22 04:20 VBG pO2 Cancelled 03/03/22 04:20 VBG HCO3 Cancelled 03/03/22 04:20 VBG O2 Saturation Cancelled 03/03/22 04:20 VBG Base Excess Cancelled 03/03/22 04:20 Barometric Pressure Cancelled 03/03/22 04:20 Oxygen Given 3L 03/08/22 21:18 O2 Delivery Device Ventilator 03/08/22 04:09 POC O2 Rate 16 03/08/22 04:09 POC FiO2 30 % 03/07/22 05:24 Tidal Volume 330 03/03/22 10:06 PEEP 5 03/08/22 04:09 POC Sodium 144 mmol/L (135-144) 03/08/22 04:09 Sodium 138 mmol/L (136-145) 03/11/22 05:18 POC Potassium 3.5 mmol/L (3.3-5.0) 03/08/22 04:09 Potassium 3.8 mmol/L (3.5-5.1) 03/11/22 05:18 Chloride 111 mmol/L (98-107) H 03/11/22 05:18 Carbon Dioxide 19 mmol/L (21-32) L 03/11/22 05:18 Anion Gap 8 (3-11) 03/11/22 05:18 BUN 21 mg/dl (6-23) 03/11/22 05:18 Creatinine 0.89 mg/dl (0.6-1.2) 03/11/22 05:18 Est Cr Clr Drug Dosing 80.3 ml/min 03/11/22 05:18 Est GFR ( Amer) 91.4 ml/min 03/11/22 05:18 Est GFR (Non-Af Amer) 78.8 ml/min 03/11/22 05:18 BUN/Creatinine Ratio 23.6 (10-20) H 03/11/22 05:18 Glucose 115 mg/dl (70-99(Fasting)) H 03/11/22 05:18 POC Glucose 119 mg/dl (70-99) H 03/11/22 13:20 POC Glucose (other) 128 mg/dl (70-99) H 03/03/22 20:26 Estimat Average Glucose 117 mg/dl 03/07/22 04:00 Hemoglobin A1c 5.7 % (4.5-5.6) H 03/07/22 04:00 Osmolality 269 mOsm/kg (280-300) L 03/03/22 06:08 Lactate 2.1 mmol/L (0.4-2.0) H* 03/03/22 12:27 Calcium 8.8 mg/dl (8.5-10.1) 03/11/22 05:18 Phosphorus 3.5 mg/dl (2.5-4.9) 03/11/22 05:18 Magnesium 1.8 mg/dl (1.7-2.4) 03/11/22 05:18 Total Bilirubin 0.7 mg/dl (0.2-1.0) 03/09/22 05:35 Direct Bilirubin 0.2 mg/dl (0-0.2) 03/09/22 05:35 AST 28 U/L (13-39) 03/09/22 05:35 ALT 18 U/L (7-52) 03/09/22 05:35 Alkaline Phosphatase 98 U/L (34-104) 03/09/22 05:35 Ammonia 40.0 umol/L (18-72) 03/08/22 21:18 Lactate Dehydrogenase 619 U/L (86-244) H 03/04/22 10:10 Troponin I High Sens 91.7 pg/ml (0-14) H* D 03/03/22 06:08 B-Natriuretic Peptide 516 pg/ml (0-100) H 03/03/22 09:38 Total Protein 7.8 gm/dl (6.0-8.3) 03/09/22 05:35 Albumin 4.0 gm/dl (3.4-5.0) 03/09/22 05:35 Globulin 3.0 gm/dl (2.5-4.0) 03/06/22 04:31 Albumin/Globulin Ratio 1.1 (0.9-2) 03/06/22 04:31 Triglycerides 193 mg/dl (0-150) H 03/07/22 09:47 Procalcitonin 0.46 ng/ml (0-0.5) 03/04/22 10:10 TSH 0.451 uIu/ml (0.300-4.500) 03/03/22 06:08 Urine Color Yellow 03/03/22 05:25 Urine Appearance Cloudy (Clear) A 03/03/22 05:25 Urine pH 5.0 (4.5-7.5) 03/03/22 05:25 Ur Specific [place] 1.012 (1.000-1.030) 03/03/22 05:25 Urine Protein Negative (Negative) 03/03/22 05:25 Urine Glucose (UA) Negative (Negative) 03/03/22 05:25 Urine Ketones Negative (Negative) 03/03/22 05:25 Urine Blood Negative (Negative) 03/03/22 05:25 Urine Nitrite Negative (Negative) 03/03/22 05:25 Urine Bilirubin Negative (Negative) 03/03/22 05:25 Urine Urobilinogen Negative (Negative) 03/03/22 05:25 Ur Leukocyte Esterase Trace (Negative) H 03/03/22 05:25 Urine WBC (Auto) 1-5 /hpf (0-5) 03/03/22 05:25 Urine RBC (Auto) 0-4 /hpf (0-4) 03/03/22 05:25 U Hyaline Cast (Auto) 1-5 /lpf (0-5) 03/03/22 05:25 U Epithel Cells (Auto) >30 /lpf (0-5) H 03/03/22 05:25 Urine Bacteria (Auto) 1+ (Negative) H 03/03/22 05:25 Urine Osmolality 258 mOsm/kg (500-800) L 03/03/22 11:20 Ur Random Sodium 50 mmol/L 03/03/22 11:20 Nasal Screen MRSA (PCR) Negative (Negative) 03/03/22 08:07 Stl C. diff Tox B Gene Negative Cdiff Gene (Neg) 03/10/22 02:50 Vancomycin Trough 18.5 mcg/ml (10-20) 03/11/22 05:18 Random Vancomycin 21.4 mcg/ml (10-20) H 03/07/22 04:00 Ur Butalbital Confirm Cancelled 03/04/22 13:10 Urine Opiates Screen Cancelled 03/04/22 13:10 Urine Opiates Screen Neg (Neg) 03/04/22 13:10 U Codeine Confrm GC/MS Cancelled 03/04/22 13:10 Ur Morphine (GC/MS) Cancelled 03/04/22 13:10 Ur Hydrocodone (GC/MS) Cancelled 03/04/22 13:10 U Norhydrocodone Conf Cancelled 03/04/22 13:10 Ur Oxycodone Screen Cancelled 03/04/22 13:10 U Noroxycodone Confirm Cancelled 03/04/22 13:10 Ur Oxycodone GC/MS Cancelled 03/04/22 13:10 U Oxymorphone GC/MS Cancelled 03/04/22 13:10 EDDP Confirm Cancelled 03/04/22 13:10 Ur Methadone, Qual Cancelled 03/04/22 13:10 Ur Methadone, Qual Neg (Neg) 03/04/22 13:10 Ur Methadone Cancelled 03/04/22 13:10 Ur Hydromorphone (GC/MS) Cancelled 03/04/22 13:10 Urine Barbiturates Cancelled 03/04/22 13:10 Urine Barbiturates Neg (Neg) 03/04/22 13:10 Ur Phencyclidine Scrn Cancelled 03/04/22 13:10 Ur Phencyclidine (PCP) Neg (Neg) 03/04/22 13:10 Urine PCP Confirm Cancelled 03/04/22 13:10 Ur Amphetamines Screen Cancelled 03/04/22 13:10 U Amphetamines Confirm Cancelled 03/04/22 13:10 U Amphetamin/Meth Scrn Neg (Neg) 03/04/22 13:10 Methamphetamine GC/MS Cancelled 03/04/22 13:10 MDMA (Ecstasy) Screen Neg (Neg) 03/04/22 13:10 Ur Amobarbital GC/MS Cancelled 03/04/22 13:10 U Pentobarbital GC/MS Cancelled 03/04/22 13:10 U Phenobarbital GC/MS Cancelled 03/04/22 13:10 U Secobarbital GC/MS Cancelled 03/04/22 13:10 U OH-Alprazolam Confrm NEGATIVE ng/mL (<25) 03/04/22 13:10 U [id number] GC/MS Cancelled 03/04/22 13:10 U Benzodiazepines Scrn Cancelled 03/04/22 13:10 U Benzodiazepines Scrn Pos (Neg) H 03/04/22 13:10 7-Amino Clonazepam NEGATIVE ng/mL (<25) 03/04/22 13:10 U 7-Aminoclonazepam Screen Cancelled 03/04/22 13:10 Ur Nordiazepam Confirm NEGATIVE ng/mL (<50) 03/04/22 13:10 Ur Nordiazepam GC/MS Cancelled 03/04/22 13:10 U OH-ethylflurazepam NEGATIVE ng/mL (<50) 03/04/22 13:10 U OH-ethylfluraz GC/MS Cancelled 03/04/22 13:10 U Lorazepam Cnf GC/MS Cancelled 03/04/22 13:10 U Lorazepam Cnf GC/MS NEGATIVE ng/mL (<50) 03/04/22 13:10 U Oxazepam Confm GC/MS Cancelled 03/04/22 13:10 U Oxazepam Confm GC/MS NEGATIVE ng/mL (<50) 03/04/22 13:10 Ur Temazepam Confirm NEGATIVE ng/mL (<50) 03/04/22 13:10 Ur Temazepam Cnf GC/MS Cancelled 03/04/22 13:10 U a-Hydroxytriaz GC/MS Cancelled 03/04/22 13:10 U OH-Triazolam Confirm NEGATIVE ng/mL (<50) 03/04/22 13:10 U [id number] Cancelled 03/04/22 13:10 U OH-Midazolam Confirm 408 ng/mL (<50) H 03/04/22 13:10 Urine Cocaine Cancelled 03/04/22 13:10 Ur Cocaine Metabolite Neg (Neg) 03/04/22 13:10 U Cocaine Metab Confirm Cancelled 03/04/22 13:10 Tetrahydrocannabinol Cancelled 03/04/22 13:10 U Marijuana (THC) Screen Cancelled 03/04/22 13:10 U Marijuana (THC) Screen Neg (Neg) 03/04/22 13:10 Drug Screen Comment Cancelled 03/04/22 13:10 Drug Screen Comment SEE NOTE 03/04/22 13:10 C.trachomatis RNA Not Detected (NotDetected) 03/08/22 10:56 SARS-CoV-2 (PCR) NEGATIVE (Negative) 03/03/22 04:00 HCV RNA (PCR) IUs/ml 4500 IU/mL (NOT DETECTED) H 03/06/22 10:31 HCV RNA PCR log IUs/ml 3.65 Log IU/mL (NOT DETECTED) H 03/06/22 10:31 HIV-1 RNA copies/mL Not Detected Copies/mL 03/06/22 10:31 HIV-1 RNA logcopies/mL Not Detected Log cps/mL 03/06/22 10:31 HIV (1&2) Ag & Ab Conf NON-REACTIVE (NON-REACTIVE) 03/06/22 10:31 Influenza Type A (PCR) Negative (Neg) 03/03/22 04:00 Influenza Type B (PCR) Negative (Neg) 03/03/22 04:00 Urine Legionella Ag SEE NOTE 03/08/22 10:56 RSV (RT-PCR) Negative (Neg) 03/03/22 04:00 Beta-(1,3)-D-Glucan <31 pg/mL 03/06/22 04:31 B-(1,3)-D-Glucan Intrp NEGATIVE 03/06/22 04:31 Reference Lab Cancelled 03/04/22 13:10 Impressions Chest CTA 03/06/22 15:47 CT ANGIOGRAM OF THE CHEST CLINICAL HISTORY: Respiratory failure. COMPARISON STUDY: Chest x-ray dated 03/06/2022. Chest CT dated 07/10/2021. TECHNIQUE: Following the IV administration of 119 cc of Optiray 320, CT angiogram of the chest was performed from the upper abdomen to the thoracic inlet utilizing the pulmonary embolus protocol. Images are reviewed in the axial, sagittal, and coronal planes. 3-D MIPS images are created and assessed. IV contrast was administered without complication. A dose lowering technique was utilized adhering to the principles of ALARA. The examination is severely degraded by motion artifact. There is also streak artifact from the arms which could not be elevated above the chest. CT DOSE: 779.91 mGy.cm FINDINGS: Thyroid: The thyroid gland is enlarged and heterogeneous. Low-attenuation nodules measure up to 1.6 cm. Thoracic aorta: There is mild atherosclerotic calcification of the thoracic aorta, which is normal in caliber and demonstrates standard 3-vessel arch anatomy. No dissection is seen. Pulmonary vasculature: The pulmonary trunk is normal in caliber. There are no filling defects identified in main, lobar, or segmental pulmonary branches to suggest pulmonary embolus. Evaluation of the subsegmental branches is degraded by motion artifact. Heart: A left subclavian central venous catheter is in place. The heart is mildly enlarged and without pericardial effusion. The coronary arteries are densely calcified. Lungs and pleural spaces: An endotracheal tube terminates at the level of the ca sofia. Extensive/diffuse groundglass consolidation is seen throughout both lungs. Foci of air trapping are seen at the left lung base. There is associated intralobular septal thickening. Mediastinum: There is bulky mediastinal lymphadenopathy. A subcarinal node measures 3.8 cm short axis. Prevascular nodes measure up to 1.4 cm short axis. Sameera: There is bilateral hilar adenopathy. Hilar nodes measure up to 1.6 cm in short axis. Axillae: There is no axillary lymphadenopathy. Upper abdomen: An enteric tube is in place. This extends below the diaphragm into the stomach. The liver is enlarged and steatotic. Reflux of contrast into the IVC and hepatic veins suggest cardiac dysfunction. The spleen is enlarged. Skeletal structures: The skeletal structures are osteopenic. There is a mild superior endplate compression deformity of L1. No lytic or blastic bony lesions are seen. IMPRESSION: 1. Streak and motion compromised examination 2. An endotracheal tube terminates at the level of the misti. Consider repositioning. 3. There is no evidence of pulmonary embolus in the main, lobar, or segmental pulmonary arteries. 4. Cardiomegaly and coronary artery calcification. 5. Groundglass consolidation is seen throughout both lungs with associated intralobular septal thickening. Differential considerations include pulmonary edema, multifocal pneumonia, and/or ARDS. Clinical correlation will be essential and radiographic follow-up to resolution is recommended. 6. There is bulky mediastinal and hilar lymphadenopathy. Clinical correlation required. 7. Hepatomegaly with hepatic steatosis. 8. Splenomegaly. 9. Enlarged multinodular thyroid gland. Nonemergent/outpatient thyroid ultrasound is recommended in follow-up. 10. Additional findings as above. ACT 112: Negative or not required by law. Electronically signed by: Ja Villanueva M.D. 03/06/2022 5:[address] 03/07/22 14:[address] DOSE: 691.05 mGy.cm HISTORY: Altered mental status. TECHNIQUE: Multiaxial CT images of the head were performed without the use of intravenous contrast. Automated exposure control was utilized for this study. A dose lowering technique was utilized adhering to the principles of ALARA. Comparison: Head CT 09/07/2021. Findings: Partially visualized endotracheal tube and orogastric tube noted. The paranasal sinuses and right mastoid air cells are clear. Small left mastoid effusion. The calvarium and skull base are intact. The ventricles and sulci are within normal limits. There is no mass, hematoma, midline shift, or acute infarct. Impression: No acute intracranial abnormality. Partially visualized endotracheal tube and orogastric tube noted. ACT 112: Negative or not required by law. Electronically signed by: Arnol Kenney M.D. 03/07/2022 3:39 PM Chest X-Ray 03/08/22 07:00 SINGLE VIEW CHEST CLINICAL HISTORY: Respiratory failure. FINDINGS: An AP, portable, upright chest radiograph is compared to chest x-ray and chest CT dated 03/06/2022. An endotracheal tube, enteric tube, and a left subclavian central venous catheter are again noted. The heart is enlarged. There is pulmonary vascular congestion. Bilateral airspace opacities are again seen throughout both lungs. These have modestly cleared from yesterday. No large pleural effusion or pneumothorax is seen. The bony thorax is grossly intact. IMPRESSION: 1. Lines and tubes as above. 2. Cardiomegaly with pulmonary vascular congestion. 3. Bilateral airspace opacities could represent pulmonary edema and/or multifocal pneumonia. This has modestly cleared as compared to yesterday. ACT 112: Negative or not required by law. Electronically signed by: Ja Villanueva M.D. 03/08/2022 12:39 PM Medications Administered Current Inpatient Medications Acetaminophen (Acetaminophen 500 Mg Tab) 500 mg PO Q6H PRN PRN Reason: pain/fever Stop: 04/02/22 07:55 Last Admin: 03/10/22 20:14 Dose: 500 mg Aspirin (Aspirin 81 Mg Chew) 81 mg PO DAILY WILMA Stop: 04/02/22 10:14 Last Admin: 03/11/22 08:19 Dose: 81 mg Atorvastatin Calcium (Atorvastatin 40 Mg Tab) 80 mg PO DAILY WILMA Stop: 04/02/22 08:59 Last Admin: 03/11/22 08:08 Dose: 80 mg Azithromycin (Azithromycin 250 Mg Tab) 500 mg PO QAM WILMA Stop: 03/12/22 08:59 Last Admin: 03/11/22 08:08 Dose: 500 mg Clopidogrel Bisulfate (Clopidogrel Bisulfate 75 Mg Tab) 75 mg PO DAILY WILMA Stop: 04/02/22 08:59 Last Admin: 03/11/22 08:09 Dose: 75 mg Dextrose (Dextrose 50% 50 Ml Syringe) 25 - 50 ml IV UD PRN; Protocol PRN Reason: Hypoglycemia Protocol Stop: 04/02/22 07:55 Docusate Sodium (Docusate Sodium Syrup 100 Mg/10 Ml Udc) 100 mg PO BID WILMA Stop: 04/05/22 20:59 Last Admin: 03/11/22 08:09 Dose: Not Given Enoxaparin Sodium (Enoxaparin Inj 40 Mg/0.4 Ml Syr) 40 mg SQ QAM [facility] Stop: 04/07/22 08:59 Last Admin: 03/11/22 08:09 Dose: 40 mg Escitalopram Oxalate (Escitalopram Oxalate 20 Mg Tab) 20 mg PO DAILY WILMA Stop: 04/02/22 08:59 Last Admin: 03/11/22 08:09 Dose: 20 mg Famotidine (Famotidine 20 Mg Tab) 20 mg PO BID WILMA Stop: 04/02/22 20:59 Last Admin: 03/11/22 08:07 Dose: 20 mg Gabapentin (Gabapentin 300 Mg Cap) 300 mg PO TID WILMA Stop: 04/10/22 08:59 Last Admin: 03/11/22 09:17 Dose: 300 mg Glucagon (Glucagon For Inj 1 Mg Vial) 1 mg SQ UD PRN; Protocol PRN Reason: Hypoglycemia Protocol Stop: 04/02/22 07:55 Glucose (Glucose 40% Gel 15 Gm Tube) 15 - 30 gm PO UD PRN; Protocol PRN Reason: Hypoglycemia Protocol Stop: 04/02/22 07:55 Glucose (Glucose 10 Tab/Tube) 4 - 8 tab PO UD PRN; Protocol PRN Reason: Hypoglycemia Treatment Stop: 04/02/22 07:55 Vancomycin HCl 1,000 mg/ (Sodium Chloride) 270 mls @ 200 mls/hr IV Q12H WILMA; Protocol Stop: 04/15/22 17:59 Last Infusion: 03/11/22 08:13 Dose: Infused Caspofungin 150 mg/ Sodium (Chloride) 310 mls @ 260 mls/hr IV Q24H [facility] Stop: 04/17/22 10:29 Last Infusion: 03/10/22 11:34 Dose: Infused Meropenem 2,000 mg/ Sodium (Chloride) 100 mls @ 200 mls/hr IV Q8H [facility]; Protocol Stop: 04/19/22 09:59 Last Infusion: 03/11/22 10:24 Dose: Infused Insulin Aspart (Insulin Aspart Per Unit) 0 units SC ACHS WILMA Stop: 04/08/22 16:29 Last Admin: 03/11/22 13:50 Dose: 3 units Ipratropium Stephen (Ipratropium Stephen Neb Soln 0.02% 2.5 Ml Vial) 0.5 mg INH QIDR PRN PRN Reason: Wheezing Stop: 04/02/22 10:59 Levalbuterol HCl (Levalbuterol 1.25mg/0.5ml Neb) 1.25 mg INH QIDR PRN PRN Reason: Wheezing Stop: 04/02/22 10:59 Levetiracetam (Levetiracetam 500 Mg Tab) 500 mg PO Q12 [facility]ILMA Stop: 04/10/22 20:59 Miscellaneous (Carbohydrates For Hypoglycemia ) 15 - 30 gm PO UD PRN PRN Reason: Hypoglycemia Protocol Stop: 04/02/22 07:55 Miscellaneous Information (Vancomycin Consult Active) 1 each N/A UD PRN PRN Reason: Consult Stop: 04/03/22 09:06 Miscellaneous Information (Pharmacy Glycemic Mgmt Consult) 1 each N/A UD PRN; Protocol PRN Reason: Consult Stop: 04/04/22 09:42 Morphine Sulfate (Morphine Sulfate 2 Mg/Ml Carp) 2 mg IV Q4H PRN PRN Reason: Pain Stop: 03/23/22 09:31 Last Admin: 03/11/22 14:12 Dose: 2 mg Polyethylene Glycol (Polyethylene (Miralax) 17 Gm Pack) 17 gm PO DAILY [facility] Stop: 04/05/22 09:34 Last Admin: 03/11/22 08:08 Dose: Not Given Sennosides (Sennosides 8.8 Mg/5 Ml Udc) 8.8 mg PO QAM WILMA Stop: 04/05/22 09:44 Last Admin: 03/11/22 08:08 Dose: Not Given Topiramate (Topiramate 25 Mg Tab) 25 mg PO BID WILMA Stop: 04/02/22 08:59 Last Admin: 03/11/22 08:07 Dose: 25 mg (1) CHF (congestive heart failure) Heart failure chronicity: acute Heart failure type: unspecified Qualified Code(s): I50.9 - Heart failure, unspecified
--- NOTE | 2022-03-11 14:48 | Pharmacy Report ---
Pharmacy Glycemic Sign Off Nt - Date of Service March 11, 2022 - Assessment & Plan ASSESSMENT: * Pharmacy was consulted by Dr. Loaiza on 03/05/22 for glycemic control and to write orders per [facility] inpatient glycemic control protocol. * Major changes made by pharmacy to antidiabetic regimen include: * none * Patient has been receiving 7-9 units of bolus insulin per day for adequate glycemic control * BSGs ranging from 107 to 149 mg/dl * Regimen has only required minor adjustments over the past 48hrs to achieve this level of control * Do not anticipate further changes in patient status that would quickly deteriorate glycemic control PLAN FOR INPATIENT GLYCEMIC CONTROL: No changes needed to current regimen. * No basal insulin * Continue NovoLog per scale ACHS/Q6hrs while NPO * Goal range = 110- 140 mg/dl * CF = 30 mg/dl/unit * CR = 1 unit for ever 12 g CHO consumed * Pharmacy is signing off of glycemic consult and will no longer be making adjustments to inpatient regimen. Please feel free to re-consult if needed. Thank you.
[2022-03-11] MEDS: levETIRAcetam 500 MG TAB PO SCH (20:18)
[2022-03-11] MEDS: BACITRACIN OINT 15 GM TUBE EXT SCH (20:18)
[2022-03-12] MEDS: MEROPENEM 2,000 MG in 0.9 % SODIUM CHLORIDE 58 ML IV SCH ×2 (02:19→10:04)
[2022-03-12] MEDS: MoRPHine SULFATE 2 MG/ML CARP IV PRN ×4 (02:20→14:12)
[2022-03-12] MEDS ORDERED: SODIUM CHLORIDE 0.65% NA SOLN 45 ML (OCEAN) PRN (04:35)
[2022-03-12] MEDS: VANCOMYCIN HCL 1,000 MG in SODIUM CHLORIDE 0.9% 250 ML IV SCH (06:09)
[2022-03-12 06:22] LABS: Hematocrit (blood only) 26.1 % (34.1-44.9); Hemoglobin 8.4 g/dl (12.0-16.0); Mean Corpuscular Hemoglobin 27.5 pg (25.0-34.0); Mean Corpuscular Hgb Conc 32.2 g/dL (32.0-36.0); Mean Corpuscular Volume 85.6 fL (80.0-100.0); Mean Platelet Volume 9.5 fL (9.4-12.3); Platelet Count 314 K/uL (130-400); RDW Coefficient of Variation 16.9 % (11.5-14.5); RDW Standard Deviation 52.9 fL (36.4-46.3); Red Blood Count 3.05 M/uL (3.93-5.22); White Blood Count 10.01 K/ul (4.8-10.8)
[2022-03-12 06:46] LABS: BUN Creatinine Ratio 20.7 (10-20); Calcium 8.9 mg/dl (8.5-10.1); Creatinine Clr Calc Pharmacy 78.4 ml/min; Est GFR (African American) 87.8 ml/min; Est GFR (Non-African American) 75.7 ml/min; Magnesium 1.9 mg/dl (1.7-2.4); Phosphorus 4.3 mg/dl (2.5-4.9)
[2022-03-12] MEDS: INSULIN ASPART PER UNIT SC SCH ×2 (07:59→12:44)
[2022-03-12] MEDS: TOPIRAMATE 25 MG TAB PO SCH (09:58)
[2022-03-12] MEDS: ESCITALOPRAM OXALATE 20 MG TAB PO SCH (09:58)
[2022-03-12] MEDS: CLOPIDOGREL BISULFATE 75 MG TAB PO SCH (09:59)
[2022-03-12] MEDS: DOCUSATE SODIUM SYRUP 100 MG/10 ML UDC PO SCH (09:59)
[2022-03-12] MEDS: ENOXAPARIN INJ 40 MG/0.4 ML SYR SQ SCH (09:59)
[2022-03-12] MEDS: GABAPENTIN 300 MG CAP PO SCH ×2 (09:59→15:06)
[2022-03-12] MEDS: FAMOTIDINE 20 MG TAB PO SCH (09:59)
[2022-03-12] MEDS: ATORVASTATIN 40 MG TAB PO SCH (09:59)
[2022-03-12] MEDS: levETIRAcetam 500 MG TAB PO SCH (09:59)
[2022-03-12] MEDS: POLYETHYLENE (MIRALAX) 17 GM PACK PO SCH (10:00)
[2022-03-12] MEDS: BACITRACIN OINT 15 GM TUBE EXT SCH (10:00)
[2022-03-12] MEDS: SENNOSIDES 8.8 MG/5 ML UDC PO SCH (10:00)
[2022-03-12] MEDS: ASPIRIN 81 MG CHEW PO SCH (10:05)
--- NOTE | 2022-03-12 16:03 | Hospitalist Progress Note ---
Date of Service March 12, 2022 Assessment & Plan (1) Acute respiratory failure with hypoxia: Plan: - now extubated on 2-3L NC - Present on admission with worsening SOB, congestion and productive cough - CXR showed cardiomegaly. Multifocal airspace opacities compatible pneumonia. - CTA chest showed no evidence of pulmonary embolus in the main, lobar, or segmental pulmonary arteries. - Currently sedated and intubated on vent support - Sputum cx grew staph intermedius - concern for endocarditis but negative blood cultures - [facility] rn hospital evaluated and do not feel there is vegetation and even so, not candidate for AngioVac procedure - patient successfully extubated 03/08/2022 and tolerating well - will continue on vancomycin and meropenem - supplemental oxygen to maintain SpO2 >92% - on baseline 2-3L NC per patient (2) Multifocal pneumonia: Plan: - seen on CXR and CT chest - vent management as above - wean as tolerated - on broad abx with vanc, Zosyn, caspofungin per ID - will hold caspofungin for now as fungal smear and cultures negative so far - follow up ID - blood cultures negative to date - improving on CXR 03/08/2022 and extubated - respiratory status improving - continue to wean O2 as tolerated - on baseline 2-3L NC per patient - continue vancomycin and meropenem, azithromycin for now (3) Sepsis: Plan: - Met sepsis criteria on admission with tachycardia, leukocytosis, elevate RR - WBC 31.9 K, now trending down - lactic acid and procalcitonin elevated on admission - Pressor discontinued - BP maintaining - Blood cx on 03/03 and 03/04 no growth to date - ID consult on board - Currently on azithromycin, caspofungin, IV Zosyn and Vanco - hold caspofungin for now given negative cultures - spiking fevers on above - escalated to meropenem, Zosyn dc'd 03/08/2022 - repeat blood cultures 03/08/2022 - NGTD - vital stable - WBC now mproving and clinically much improved - sepsis resolving/resolved - continue to monitor closely - will repeat TTE to evaluate for endocarditis - if negative will treat for 7-10 days of pneumonia (4) CHF (congestive heart failure): Plan: - BNP 516 on admission - Received IV lasix - ECHO showed severely reduced LV systolic function with severe global hypokinesis with EF 30-35% - cardiology on board - Continue Monitor I/O - will hold further diuretics at this point - monitor fluid status (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 there is not appear to be any abscess tract formation around the annulus, no clear indication for urgent surgery - Blood cx on 03/03 and 03/04 no growth - ID on board - Currently on broad spectrum abx with azithromycin, caspofungin, IV Zosyn and Vanco - Case discussed with cardiology Dr. Alexis Knight at [facility] for possible transfer for angio VAC treatment of endocarditis - follow up with CTS at [facility] does not believe this is vegetation but difficult to assess, STEVEN would be definitive, however, AngioVac procedure would not benefit patient and so patient will not be transferred at this time - will continue empiric treatment with IV abx as above - consider STEVEN if positive blood cultures or clinical deterioration - patient improving and cultures negative to date - will repeat TTE and evaluate valves - if negative - treat for pneumonia as above - repeat TTE read pending Plan DVT ppx: heparin SC Code Status: Full Code Dispo: telemetry Dylon Aldrich MD Hospital Medicine Admission and Anticipated Discharge Date Admission Date: March 03, 2022 Subjective Patient with DM, OUD, admitted for acute hypoxic respiratory failure and diffuse pulmonary infiltrates on mechanical ventilation. On vancomycin, Zosyn, caspofungin per ID. Question of endocarditis, evaluated by [facility] Cardiology who do not feel patient would benefit from intervention on potential vegetation and not accepting transfer at this time. Blood cultures have been negative. Spiking fevers, Zosyn changed to meropenem 03/08/2022, repeat blood cultures 03/08/2022. Extubated successfully 03/08/2022. Downgraded from ICU 03/08/2022, tolerating minimal NC. Patient awake and alert. Denies chest pain, shortness of breath, n/v/d, abdominal pain, dysuria. Reports she is on oxygen at baseline and feels breathing is at baseline. Feels well. Would like to go home today but explained that we must wait for results of TTE to confirm she does not have endocarditis because would need longer duration of abx if indeed has endocarditis. Review of Systems Review of Systems: As per HPI, all other systems reviewed and negative Physical Exam Physical Exam: General- awake and alert, oriented x3. NAD Head- atraumatic Eyes- PERRL ENT- oral mucosa moist, no lesions noted Neck- supple, no JVD Lungs- on baseline 3L NC, no wheezing, CTAB Heart- regular rhythm; +systolic murmur Abdomen- normal bowel sounds, soft, nontender Extremities- no calf tenderness Neuro- AAOx3, no focal deficits Skin- warm & dry, No Osler's nodes or [place] lesions identified Results & Data Results & Data ([facility]) Vital Signs (Past 12 Hours) Vital Signs Temp Pulse Pulse Resp BP Pulse Ox O2 Del Method 03/12/22 12:11 36.4 C L 75 19 134/75 100 Nasal Cannula 03/12/22 08:00 92 H 03/12/22 08:00 36.6 C 65 19 122/70 100 Nasal Cannula 03/12/22 07:44 Nasal Cannula 03/12/22 07:42 92 H O2 Flow Rate 03/12/22 12:11 2.0 03/12/22 08:00 03/12/22 08:00 2.0 03/12/22 07:44 2 03/12/22 07:42 Diagnostic Findings Laboratory Results WBC 10.01 K/ul (4.8-10.8) 03/12/22 05:59 RBC 3.05 M/uL (3.93-5.22) L 03/12/22 05:59 Hgb 8.4 g/dl (12.0-16.0) L 03/12/22 05:59 POC Hgb 8.8 g/dl (12.0-16.0) L 03/08/22 04:09 Hct 26.1 % (34.1-44.9) L 03/12/22 05:59 POC Hct 26 % (37-47) L 03/08/22 04:09 MCV 85.6 fL (80.0-100.0) 03/12/22 05:59 MCH 27.5 pg (25.0-34.0) 03/12/22 05:59 MCHC 32.2 g/dL (32.0-36.0) 03/12/22 05:59 RDW Std Deviation 52.9 fL (36.4-46.3) H 03/12/22 05:59 RDW Coeff of Ahnnah 16.9 % (11.5-14.5) H 03/12/22 05:59 Plt Count 314 K/uL (130-400) 03/12/22 05:59 MPV 9.5 fL (9.4-12.3) 03/12/22 05:59 Immature Gran % (Auto) 3.0 % 03/10/22 03:58 Neut % (Auto) 61.8 % 03/10/22 03:58 Lymph % (Auto) 24.9 % 03/10/22 03:58 Harris % (Auto) 9.1 % 03/10/22 03:58 Eos % (Auto) 0.6 % 03/10/22 03:58 Baso % (Auto) 0.6 % 03/10/22 03:58 Neut # (Auto) 8.72 K/uL (1.4-6.5) H 03/10/22 03:58 Lymph # (Auto) 3.51 K/uL (1.2-3.4) H 03/10/22 03:58 Harris # (Auto) 1.28 K/uL (0.24-0.82) H 03/10/22 03:58 Eos # (Auto) 0.09 K/uL (0-0.50) 03/10/22 03:58 Baso # (Auto) 0.09 K/uL (0-0.2) 03/10/22 03:58 Immature Gran # (Auto) 0.43 K/uL (0.00-0.02) H 03/10/22 03:58 Neutrophils % (Manual) 94 % 03/03/22 04:20 Lymphocytes % (Manual) 2 % 03/03/22 04:20 Monocytes % (Manual) 3 % 03/03/22 04:20 Basophils % (Manual) 1 % 03/03/22 04:20 Neutrophils # (Manual) 30.06 K/uL (1.4-6.5) H 03/03/22 04:20 Total Absolute Neuts 30.06 K/uL (1.4-6.5) H 03/03/22 04:20 Lymphocytes # (Manual) 0.64 K/uL (1.2-3.4) L 03/03/22 04:20 Total Abs Lymphocytes 0.64 K/uL (1.2-3.4) L 03/03/22 04:20 Monocytes # (Manual) 0.96 K/uL (0.24-0.82) H 03/03/22 04:20 Basophils # (Manual) 0.32 K/uL (0-0.2) H 03/03/22 04:20 RBC Morphology Unremarkable 03/07/22 04:00 Echinocytes 2+ 03/03/22 04:20 Haptoglobin 211 mg/dL (43-212) 03/04/22 10:10 PT 12.7 Seconds (9.0-12.0) H 03/10/22 03:58 INR 1.2 (0.9-1.1) H 03/10/22 03:58 APTT 31.3 Seconds (21.0-31.0) H 03/03/22 04:20 PTT Ratio 1.1 03/03/22 04:20 Sample Site L Radial 03/08/22 04:09 POC pH 7.43 (7.35-7.45) 03/08/22 04:09 POC pCO2 33 mmHg (35-46) L 03/08/22 04:09 POC pO2 116 mmHg (80-95) H 03/08/22 04:09 POC HCO3 22 quinn/L (19-24) 03/08/22 04:09 POC Total CO2 23 mmol/L (24-31) L 03/08/22 04:09 POC Base Excess -3.0 quinn/L (-9-1.8) 03/08/22 04:09 ABG pH 7.48 (7.35-7.45) H 03/08/22 21:18 ABG pH (Temp Correct) 7.416 (7.35-7.45) 03/08/22 04:09 ABG pCO2 23 mmHg (35-46) L 03/08/22 21:18 ABG pCO2 (Temp Corrct 34 mmHg (35-46) L 03/08/22 04:09 ABG pO2 101 mmHg (80-95) H 03/08/22 21:18 POC ABG pO2 at Pt Temp 120 03/08/22 04:09 ABG HCO3 17 mmol/L (19-24) L 03/08/22 21:18 POC ABG O2 Sat 99.0 % (90-95) H 03/08/22 04:09 ABG O2 Saturation > 100.0 % (90-95) H 03/08/22 21:18 ABG Base Excess -4.5 mEq/L (-9-1.8) 03/08/22 21:18 Caesar Test Pos (Pos) 03/08/22 21:18 VBG pH Cancelled 03/03/22 04:20 VBG pCO2 Cancelled 03/03/22 04:20 VBG pO2 Cancelled 03/03/22 04:20 VBG HCO3 Cancelled 03/03/22 04:20 VBG O2 Saturation Cancelled 03/03/22 04:20 VBG Base Excess Cancelled 03/03/22 04:20 Barometric Pressure Cancelled 03/03/22 04:20 Oxygen Given 3L 03/08/22 21:18 O2 Delivery Device Ventilator 03/08/22 04:09 POC O2 Rate 16 03/08/22 04:09 POC FiO2 30 % 03/07/22 05:24 Tidal Volume 330 03/03/22 10:06 PEEP 5 03/08/22 04:09 POC Sodium 144 mmol/L (135-144) 03/08/22 04:09 Sodium 139 mmol/L (136-145) 03/12/22 05:59 POC Potassium 3.5 mmol/L (3.3-5.0) 03/08/22 04:09 Potassium 4.0 mmol/L (3.5-5.1) 03/12/22 05:59 Chloride 113 mmol/L (98-107) H 03/12/22 05:59 Carbon Dioxide 21 mmol/L (21-32) 03/12/22 05:59 Anion Gap 5 (3-11) 03/12/22 05:59 BUN 19 mg/dl (6-23) 03/12/22 05:59 Creatinine 0.92 mg/dl (0.6-1.2) 03/12/22 05:59 Est Cr Clr Drug Dosing 78.4 ml/min 03/12/22 05:59 Est GFR ( Amer) 87.8 ml/min 03/12/22 05:59 Est GFR (Non-Af Amer) 75.7 ml/min 03/12/22 05:59 BUN/Creatinine Ratio 20.7 (10-20) H 03/12/22 05:59 Glucose 100 mg/dl (70-99(Fasting)) H 03/12/22 05:59 POC Glucose 107 mg/dl (70-99) H 03/12/22 11:48 POC Glucose (other) 128 mg/dl (70-99) H 03/03/22 20:26 Estimat Average Glucose 117 mg/dl 03/07/22 04:00 Hemoglobin A1c 5.7 % (4.5-5.6) H 03/07/22 04:00 Osmolality 269 mOsm/kg (280-300) L 03/03/22 06:08 Lactate 2.1 mmol/L (0.4-2.0) H* 03/03/22 12:27 Calcium 8.9 mg/dl (8.5-10.1) 03/12/22 05:59 Phosphorus 4.3 mg/dl (2.5-4.9) 03/12/22 05:59 Magnesium 1.9 mg/dl (1.7-2.4) 03/12/22 05:59 Total Bilirubin 0.7 mg/dl (0.2-1.0) 03/09/22 05:35 Direct Bilirubin 0.2 mg/dl (0-0.2) 03/09/22 05:35 AST 28 U/L (13-39) 03/09/22 05:35 ALT 18 U/L (7-52) 03/09/22 05:35 Alkaline Phosphatase 98 U/L (34-104) 03/09/22 05:35 Ammonia 40.0 umol/L (18-72) 03/08/22 21:18 Lactate Dehydrogenase 619 U/L (86-244) H 03/04/22 10:10 Troponin I High Sens 91.7 pg/ml (0-14) H* D 03/03/22 06:08 B-Natriuretic Peptide 516 pg/ml (0-100) H 03/03/22 09:38 Total Protein 7.8 gm/dl (6.0-8.3) 03/09/22 05:35 Albumin 4.0 gm/dl (3.4-5.0) 03/09/22 05:35 Globulin 3.0 gm/dl (2.5-4.0) 03/06/22 04:31 Albumin/Globulin Ratio 1.1 (0.9-2) 03/06/22 04:31 Triglycerides 193 mg/dl (0-150) H 03/07/22 09:47 Procalcitonin 0.46 ng/ml (0-0.5) 03/04/22 10:10 TSH 0.451 uIu/ml (0.300-4.500) 03/03/22 06:08 Urine Color Yellow 03/03/22 05:25 Urine Appearance Cloudy (Clear) A 03/03/22 05:25 Urine pH 5.0 (4.5-7.5) 03/03/22 05:25 Ur Specific [place] 1.012 (1.000-1.030) 03/03/22 05:25 Urine Protein Negative (Negative) 03/03/22 05:25 Urine Glucose (UA) Negative (Negative) 03/03/22 05:25 Urine Ketones Negative (Negative) 03/03/22 05:25 Urine Blood Negative (Negative) 03/03/22 05:25 Urine Nitrite Negative (Negative) 03/03/22 05:25 Urine Bilirubin Negative (Negative) 03/03/22 05:25 Urine Urobilinogen Negative (Negative) 03/03/22 05:25 Ur Leukocyte Esterase Trace (Negative) H 03/03/22 05:25 Urine WBC (Auto) 1-5 /hpf (0-5) 03/03/22 05:25 Urine RBC (Auto) 0-4 /hpf (0-4) 03/03/22 05:25 U Hyaline Cast (Auto) 1-5 /lpf (0-5) 03/03/22 05:25 U Epithel Cells (Auto) >30 /lpf (0-5) H 03/03/22 05:25 Urine Bacteria (Auto) 1+ (Negative) H 03/03/22 05:25 Urine Osmolality 258 mOsm/kg (500-800) L 03/03/22 11:20 Ur Random Sodium 50 mmol/L 03/03/22 11:20 Nasal Screen MRSA (PCR) Negative (Negative) 03/03/22 08:07 Stl C. diff Tox B Gene Negative Cdiff Gene (Neg) 03/10/22 02:50 Vancomycin Trough 18.5 mcg/ml (10-20) 03/11/22 05:18 Random Vancomycin 21.4 mcg/ml (10-20) H 03/07/22 04:00 Ur Butalbital Confirm Cancelled 03/04/22 13:10 Urine Opiates Screen Cancelled 03/04/22 13:10 Urine Opiates Screen Neg (Neg) 03/04/22 13:10 U Codeine Confrm GC/MS Cancelled 03/04/22 13:10 Ur Morphine (GC/MS) Cancelled 03/04/22 13:10 Ur Hydrocodone (GC/MS) Cancelled 03/04/22 13:10 U Norhydrocodone Conf Cancelled 03/04/22 13:10 Ur Oxycodone Screen Cancelled 03/04/22 13:10 U Noroxycodone Confirm Cancelled 03/04/22 13:10 Ur Oxycodone GC/MS Cancelled 03/04/22 13:10 U Oxymorphone GC/MS Cancelled 03/04/22 13:10 EDDP Confirm Cancelled 03/04/22 13:10 Ur Methadone, Qual Cancelled 03/04/22 13:10 Ur Methadone, Qual Neg (Neg) 03/04/22 13:10 Ur Methadone Cancelled 03/04/22 13:10 Ur Hydromorphone (GC/MS) Cancelled 03/04/22 13:10 Urine Barbiturates Cancelled 03/04/22 13:10 Urine Barbiturates Neg (Neg) 03/04/22 13:10 Ur Phencyclidine Scrn Cancelled 03/04/22 13:10 Ur Phencyclidine (PCP) Neg (Neg) 03/04/22 13:10 Urine PCP Confirm Cancelled 03/04/22 13:10 Ur Amphetamines Screen Cancelled 03/04/22 13:10 U Amphetamines Confirm Cancelled 03/04/22 13:10 U Amphetamin/Meth Scrn Neg (Neg) 03/04/22 13:10 Methamphetamine GC/MS Cancelled 03/04/22 13:10 MDMA (Ecstasy) Screen Neg (Neg) 03/04/22 13:10 Ur Amobarbital GC/MS Cancelled 03/04/22 13:10 U Pentobarbital GC/MS Cancelled 03/04/22 13:10 U Phenobarbital GC/MS Cancelled 03/04/22 13:10 U Secobarbital GC/MS Cancelled 03/04/22 13:10 U OH-Alprazolam Confrm NEGATIVE ng/mL (<25) 03/04/22 13:10 U k-OP-[id number] GC/MS Cancelled 03/04/22 13:10 U Benzodiazepines Scrn Cancelled 03/04/22 13:10 U Benzodiazepines Scrn Pos (Neg) H 03/04/22 13:10 7-Amino Clonazepam NEGATIVE ng/mL (<25) 03/04/22 13:10 U 7-Aminoclonazepam Screen Cancelled 03/04/22 13:10 Ur Nordiazepam Confirm NEGATIVE ng/mL (<50) 03/04/22 13:10 Ur Nordiazepam GC/MS Cancelled 03/04/22 13:10 U OH-ethylflurazepam NEGATIVE ng/mL (<50) 03/04/22 13:10 U OH-ethylfluraz GC/MS Cancelled 03/04/22 13:10 U Lorazepam Cnf GC/MS Cancelled 03/04/22 13:10 U Lorazepam Cnf GC/MS NEGATIVE ng/mL (<50) 03/04/22 13:10 U Oxazepam Confm GC/MS Cancelled 03/04/22 13:10 U Oxazepam Confm GC/MS NEGATIVE ng/mL (<50) 03/04/22 13:10 Ur Temazepam Confirm NEGATIVE ng/mL (<50) 03/04/22 13:10 Ur Temazepam Cnf GC/MS Cancelled 03/04/22 13:10 U a-Hydroxytriaz GC/MS Cancelled 03/04/22 13:10 U OH-Triazolam Confirm NEGATIVE ng/mL (<50) 03/04/22 13:10 U e-PZ-Rvbirumms Cancelled 03/04/22 13:10 U OH-Midazolam Confirm 408 ng/mL (<50) H 03/04/22 13:10 Urine Cocaine Cancelled 03/04/22 13:10 Ur Cocaine Metabolite Neg (Neg) 03/04/22 13:10 U Cocaine Metab Confirm Cancelled 03/04/22 13:10 Tetrahydrocannabinol Cancelled 03/04/22 13:10 U Marijuana (THC) Screen Cancelled 03/04/22 13:10 U Marijuana (THC) Screen Neg (Neg) 03/04/22 13:10 Drug Screen Comment Cancelled 03/04/22 13:10 Drug Screen Comment SEE NOTE 03/04/22 13:10 C.trachomatis RNA Not Detected (NotDetected) 03/08/22 10:56 SARS-CoV-2 (PCR) NEGATIVE (Negative) 03/03/22 04:00 HCV RNA (PCR) IUs/ml 4500 IU/mL (NOT DETECTED) H 03/06/22 10:31 HCV RNA PCR log IUs/ml 3.65 Log IU/mL (NOT DETECTED) H 03/06/22 10:31 HIV-1 RNA copies/mL Not Detected Copies/mL 03/06/22 10:31 HIV-1 RNA logcopies/mL Not Detected Log cps/mL 03/06/22 10:31 HIV (1&2) Ag & Ab Conf NON-REACTIVE (NON-REACTIVE) 03/06/22 10:31 Influenza Type A (PCR) Negative (Neg) 03/03/22 04:00 Influenza Type B (PCR) Negative (Neg) 03/03/22 04:00 Urine Legionella Ag SEE NOTE 03/08/22 10:56 RSV (RT-PCR) Negative (Neg) 03/03/22 04:00 Beta-(1,3)-D-Glucan <31 pg/mL 03/06/22 04:31 B-(1,3)-D-Glucan Intrp NEGATIVE 03/06/22 04:31 Reference Lab Cancelled 03/04/22 13:10 Impressions Chest CTA 03/06/22 15:47 CT ANGIOGRAM OF THE CHEST CLINICAL HISTORY: Respiratory failure. COMPARISON STUDY: Chest x-ray dated 03/06/2022. Chest CT dated 07/10/2021. TECHNIQUE: Following the IV administration of 119 cc of Optiray 320, CT angiogram of the chest was performed from the upper abdomen to the thoracic inlet utilizing the pulmonary embolus protocol. Images are reviewed in the axial, sagittal, and coronal planes. 3-D MIPS images are created and assessed. IV contrast was administered without complication. A dose lowering technique was utilized adhering to the principles of ALARA. The examination is severely degraded by motion artifact. There is also streak artifact from the arms which c ould not be elevated above the chest. CT DOSE: 779.91 mGy.cm FINDINGS: Thyroid: The thyroid gland is enlarged and heterogeneous. Low-attenuation nodules measure up to 1.6 cm. Thoracic aorta: There is mild atherosclerotic calcification of the thoracic aorta, which is normal in caliber and demonstrates standard 3-vessel arch anatomy. No dissection is seen. Pulmonary vasculature: The pulmonary trunk is normal in caliber. There are no filling defects identified in main, lobar, or segmental pulmonary branches to suggest pulmonary embolus. Evaluation of the subsegmental branches is degraded by motion artifact. Heart: A left subclavian central venous catheter is in place. The heart is mildly enlarged and without pericardial effusion. The coronary arteries are densely calcified. Lungs and pleural spaces: An endotracheal tube terminates at the level of the misti. Extensive/diffuse groundglass consolidation is seen throughout both lungs. Foci of air trapping are seen at the left lung base. There is associated intralobular septal thickening. Mediastinum: There is bulky mediastinal lymphadenopathy. A subcarinal node measures 3.8 cm short axis. Prevascular nodes measure up to 1.4 cm short axis. Sameera: There is bilateral hilar adenopathy. Hilar nodes measure up to 1.6 cm in short axis. Axillae: There is no axillary lymphadenopathy. Upper abdomen: An enteric tube is in place. This extends below the diaphragm into the stomach. The liver is enlarged and steatotic. Reflux of contrast into the IVC and hepatic veins suggest cardiac dysfunction. The spleen is enlarged. Skeletal structures: The skeletal structures are osteopenic. There is a mild superior endplate compression deformity of L1. No lytic or blastic bony lesions are seen. IMPRESSION: 1. Streak and motion compromised examination 2. An endotracheal tube terminates at the level of the misti. Consider repositioning. 3. There is no evidence of pulmonary embolus in the main, lobar, or segmental p ulmonary arteries. 4. Cardiomegaly and coronary artery calcification. 5. Groundglass consolidation is seen throughout both lungs with associated intralobular septal thickening. Differential considerations include pulmonary edema, multifocal pneumonia, and/or ARDS. Clinical correlation will be essential and radiographic follow-up to resolution is recommended. 6. There is bulky mediastinal and hilar lymphadenopathy. Clinical correlation required. 7. Hepatomegaly with hepatic steatosis. 8. Splenomegaly. 9. Enlarged multinodular thyroid gland. Nonemergent/outpatient thyroid ultrasound is recommended in follow-up. 10. Additional findings as above. ACT 112: Negative or not required by law. Electronically signed by: Ja Villanueva M.D. 03/06/2022 5:[address] 03/07/22 14:[address] DOSE: 691.05 mGy.cm HISTORY: Altered mental status. TECHNIQUE: Multiaxial CT images of the head were performed without the use of intravenous contrast. Automated exposure control was utilized for this study. A dose lowering technique was utilized adhering to the principles of ALARA. Comparison: Head CT 09/07/2021. Findings: Partially visualized endotracheal tube and orogastric tube noted. The paranasal sinuses and right mastoid air cells are clear. Small left mastoid effusion. The calvarium and skull base are intact. The ventricles and sulci are within normal limits. There is no mass, hematoma, midline shift, or acute infarct. Impression: No acute intracranial abnormality. Partially visualized endotracheal tube and or ogastric tube noted. ACT 112: Negative or not required by law. Electronically signed by: Arnol Kenney M.D. 03/07/2022 3:39 PM Chest X-Ray 03/08/22 07:00 SINGLE VIEW CHEST CLINICAL HISTORY: Respiratory failure. FINDINGS: An AP, portable, upright chest radiograph is compared to chest x-ray and chest CT dated 03/06/2022. An endotracheal tube, enteric tube, and a left subclavian central venous catheter are again noted. The heart is enlarged. There is pulmonary vascular congestion. Bilateral airspace opacities are again seen throughout both lungs. These have modestly cleared from yesterday. No large pleural effusion or pneumothorax is seen. The bony thorax is grossly intact. IMPRESSION: 1. Lines and tubes as above. 2. Cardiomegaly with pulmonary vascular congestion. 3. Bilateral airspace opacities could represent pulmonary edema and/or multifocal pneumonia. This has modestly cleared as compared to yesterday. ACT 112: Negative or not required by law. Electronically signed by: Ja Villanueva M.D. 03/08/2022 12:39 PM Medications Administered Current Inpatient Medications Acetaminophen (Acetaminophen 500 Mg Tab) 500 mg PO Q6H PRN PRN Reason: pain/fever Stop: 04/02/22 07:55 Last Admin: 03/10/22 20:14 Dose: 500 mg Aspirin (Aspirin 81 Mg Chew) 81 mg PO DAILY WILMA Stop: 04/02/22 10:14 Last Admin: 03/12/22 10:05 Dose: 81 mg Atorvastatin Calcium (Atorvastatin 40 Mg Tab) 80 mg PO DAILY WILMA Stop: 04/02/22 08:59 Last Admin: 03/12/22 09:59 Dose: 80 mg Bacitracin (Bacitracin Oint 15 Gm Tube) 1 appln EXT BID WILMA Stop: 03/14/22 20:59 Last Admin: 03/12/22 10:00 Dose: 1 appln Clopidogrel Bisulfate (Clopidogrel Bisulfate 75 Mg Tab) 75 mg PO DAILY WILMA Stop: 04/02/22 08:59 Last Admin: 03/12/22 09:59 Dose: 75 mg Dextrose (Dextrose 50% 50 Ml Syringe) 25 - 50 ml IV UD PRN; Protocol PRN Reason: Hypoglycemia Protocol Stop: 04/02/22 07:55 Docusate Sodium (Docusate Sodium Syrup 100 Mg/10 Ml Udc) 100 mg PO BID WILMA Stop: 04/05/22 20:59 Last Admin: 03/12/22 09:59 Dose: Not Given Enoxaparin Sodium (Enoxaparin Inj 40 Mg/0.4 Ml Syr) 40 mg SQ QAM WILMA Stop: 04/07/22 08:59 Last Admin: 03/12/22 09:59 Dose: 40 mg Escitalopram Oxalate (Escitalopram Oxalate 20 Mg Tab) 20 mg PO DAILY WILMA Stop: 04/02/22 08:59 Last Admin: 03/12/22 09:58 Dose: 20 mg Famotidine (Famotidine 20 Mg Tab) 20 mg PO BID WILMA Stop: 04/02/22 20:59 Last Admin: 03/12/22 09:59 Dose: 20 mg Gabapentin (Gabapentin 300 Mg Cap) 300 mg PO TID WILMA Stop: 04/10/22 08:59 Last Admin: 03/12/22 15:06 Dose: 300 mg Glucagon (Glucagon For Inj 1 Mg Vial) 1 mg SQ UD PRN; Protocol PRN Reason: Hypoglycemia Protocol Stop: 04/02/22 07:55 Glucose (Glucose 40% Gel 15 Gm Tube) 15 - 30 gm PO UD PRN; Protocol PRN Reason: Hypoglycemia Protocol Stop: 04/02/22 07:55 Glucose (Glucose 10 Tab/Tube) 4 - 8 tab PO UD PRN; Protocol PRN Reason: Hypoglycemia Treatment Stop: 04/02/22 07:55 Vancomycin HCl 1,000 mg/ (Sodium Chloride) 270 mls @ 200 mls/hr IV Q12H WILMA; Protocol Stop: 04/15/22 17:59 Last Infusion: 03/12/22 07:32 Dose: Infused Meropenem 2,000 mg/ Sodium (Chloride) 100 mls @ 200 mls/hr IV Q8H WILMA; Protocol Stop: 04/19/22 09:59 Last Infusion: 03/12/22 10:34 Dose: Infused Insulin Aspart (Insulin Aspart Per Unit) 0 units SC ACHS WILMA Stop: 04/08/22 16:29 Last Admin: 03/12/22 12:44 Dose: 2 units Ipratropium [place] (Ipratropium [place] Soln 0.02% 2.5 Ml Vial) 0.5 mg INH QIDR PRN PRN Reason: Wheezing Stop: 04/02/22 10:59 Levalbuterol HCl (Levalbuterol 1.25mg/0.5ml Neb) 1.25 mg INH QIDR PRN PRN Reason: Wheezing Stop: 04/02/22 10:59 Levetiracetam (Levetiracetam 500 Mg Tab) 500 mg PO Q12 WILMA Stop: 04/10/22 20:59 Last Admin: 03/12/22 09:59 Dose: 500 mg Miscellaneous (Carbohydrates For Hypoglycemia ) 15 - 30 gm PO UD PRN PRN Reason: Hypoglycemia Protocol Stop: 04/02/22 07:55 Miscellaneous Information (Vancomycin Consult Active) 1 each N/A UD PRN PRN Reason: Consult Stop: 04/03/22 09:06 Morphine Sulfate (Morphine Sulfate 2 Mg/Ml [place]) 2 mg IV Q4H PRN PRN Reason: Pain Stop: 03/23/22 09:31 Last Admin: 03/12/22 14:12 Dose: 2 mg Polyethylene Glycol (Polyethylene (Miralax) 17 Gm Pack) 17 gm PO DAILY WILMA Stop: 04/05/22 09:34 Last Admin: 03/12/22 10:00 Dose: Not Given Sennosides (Sennosides 8.8 Mg/5 Ml Udc) 8.8 mg PO QAM WILMA Stop: 04/05/22 09:44 Last Admin: 03/12/22 10:00 Dose: Not Given Sodium Chloride (Sodium Chloride 0.65% Na Soln 45 Ml ([place])) 0 sprays NA NOW PRN PRN Reason: Dryness Stop: 04/11/22 04:34 Topiramate (Topiramate 25 Mg Tab) 25 mg PO BID WILMA Stop: 04/02/22 08:59 Last Admin: 03/12/22 09:58 Dose: 25 mg (1) CHF (congestive heart failure) Heart failure chronicity: acute Heart failure type: unspecified Qualified Code(s): I50.9 - Heart failure, unspecified
--- NOTE | 2022-03-12 16:05 | Communication Note ---
Date of Service: March 12, 2022 Got TigerText from nurse saying patient will be leaving when ride gets here. Patient was waiting for TTE results to assess valves for endocarditis as intial TTE noted 1cm mobile vegetation on MV and there was concern for endocarditis. Blood cultures were negative but can have culture negative endocarditis and reevaluating TTE with possibility of STEVEN if inconclusive was explained to patient on rounds. Patient was insisting to nurse she leave and AMA papers were signed, nurse removed CVC and patient left.
--- NOTE | 2022-03-12 16:23 | Discharge Summary ---
Date of Service March 12, 2022 Admission HPI Per Admitting Provider History obtained from patient and records. Medical history significant for chronic diastolic heart failure (EF 50 to 55%, TTE 2021 ), CAD status post stent, moderate aortic stenosis, hypertension, hyperlipidemia, bronchial asthma, hx HCV, DM2 on oral medications, past history DVT status post oral anticoagulation, seizure disorder, mood disorder, chronic anemia (baseline hemoglobin 10-11), chronic pain on Suboxone, hx polysubstance abuse, ongoing tobacco abuse Last confinement June 2021 for respiratory failure secondary to CHF and pneumonia. Patient signed out AGAINST MEDICAL ADVICE. Few days history of junky cough symptoms with worsening shortness of breath. Weight gain and fluid retention despite compliance with medications. Patient not sure about sick contacts. Has not received COVID-19 vaccination secondary to allergy. Denies aspiration. Patient called EMS. O2 sats noted to be 40s at home. CPAP initiated at home. BiPAP initiated upon arrival at the ER. Meropenem and Lasix administered at the ER. MEDICAL HISTORY: SURGERIES : Cholecystectomy, Tonsillectomy, Dental procedure, Wrist abscess drainage, back surgery, thigh/knee surgery FAMILY HISTORY: HTN, DM, heart disease, Crohn's disease PERSONAL/SOCIAL HISTORY: Half pack daily, no EtOH intake, unemployed, lives with boyfriend Admission Exam Per Admitting Provider GENERAL: Slightly uncomfortable, obese, looks older than stated age, respiratory distress SKIN: Pallor , warm HEENT: Pale palpebral conjunctivae, no ptosis, dry buccal mucosa, BiPAP in place NECK : Supple, short neck, no tenderness CHEST : Decreased breath sounds, occasional expiratory wheezes, no tenderness HEART : Tachycardic, systolic murmur ABDOMEN: distention, nontender EXTREMITIES : Bilateral LE swelling, no LE tenderness, no other conspicuous deformities noted NEUROLOGIC : Coherent, no facial asymmetry, gait and stance not assessed Principal Diagnosis severe sepsis, multifocal pneumonia, possible culture negative endocarditis Discharge Exam General- awake and alert, oriented x3. NAD Head- atraumatic Eyes- PERRL ENT- oral mucosa moist, no lesions noted Neck- supple, no JVD Lungs- on baseline 3L NC, no wheezing, CTAB Heart- regular rhythm; +systolic murmur Abdomen- normal bowel sounds, soft, nontender Extremities- no calf tenderness Neuro- AAOx3, no focal deficits Skin- warm & dry, No Osler's nodes or [place] lesions identified Discharge Data Allergies Allergy/AdvReac Type Severity Reaction Status Date / Time lidocaine Allergy Intermediate HIVES Verified 07/10/21 21:33 procaine Allergy Intermediate HIVES Verified 07/10/21 21:33 Penicillins Allergy Mild HAD NO Verified 07/10/21 21:33 PROBLEM WITH ZOSYN strawberry Allergy Mild HIVES Verified 07/10/21 21:33 cephalexin AdvReac Intermediate YEAST Verified 07/10/21 21:33 INFECTIONS tramadol AdvReac Intermediate SEIZURES Verified 07/10/21 21:33 azithromycin AdvReac Mild STOMACH Verified 07/10/21 21:33 PAIN Consultations 03/03/22 05:16 ED Decision to Admit Stat 03/03/22 06:28 Consult Cardiology Routine 03/03/22 07:56 Consult Wood Pile Driver Operator Routine 03/03/22 16:39 Consult Infectious Diseases Routine Ordered Studies 03/06/22 15:47 CT angio chest PE protocol Urgent 03/07/22 14:32 CT head/brain wo con Stat Hospital Course (1) Acute respiratory failure with hypoxia: - now extubated on 2-3L NC - Present on admission with worsening SOB, congestion and productive cough - CXR showed cardiomegaly. Multifocal airspace opacities compatible pneumonia. - CTA chest showed no evidence of pulmonary embolus in the main, lobar, or segmental pulmonary arteries. - Currently sedated and intubated on vent support - Sputum cx grew staph intermedius - concern for endocarditis but negative blood cultures - [facility] [place] clerk evaluated and do not feel there is vegetation and even so, not candidate for AngioVac procedure - patient successfully extubated 03/08/2022 and tolerating well - will continue on vancomycin and meropenem - supplemental oxygen to maintain SpO2 >92% - on baseline 2-3L NC per patient (2) Multifocal pneumonia: - seen on CXR and CT chest - vent management as above - wean as tolerated - on broad abx with vanc, Zosyn, caspofungin per ID - will hold caspofungin for now as fungal smear and cultures negative so far - follow up ID - blood cultures negative to date - improving on CXR 03/08/2022 and extubated - respiratory status improving - continue to wean O2 as tolerated - on baseline 2-3L NC per patient - continue vancomycin and meropenem, azithromycin for now (3) Sepsis: - Met sepsis criteria on admission with tachycardia, leukocytosis, elevate RR - WBC 31.9 K, now trending down - lactic acid and procalcitonin elevated on admission - Pressor discontinued - BP maintaining - Blood cx on 03/03 and 03/04 no growth to date - ID consult on board - Currently on azithromycin, caspofungin, IV Zosyn and Vanco - hold caspofungin for now given negative cultures - spiking fevers on above - escalated to meropenem, Zosyn dc'd 03/08/2022 - repeat blood cultures 03/08/2022 - NGTD - vital stable - WBC now mproving and clinically much improved - sepsis resolving/resolved - continue to monitor closely - will repeat TTE to evaluate for endocarditis - if negative will treat for 7-10 days of pneumonia (4) CHF (congestive heart failure): - BNP 516 on admission - Received IV lasix - ECHO showed severely reduced LV systolic function with severe global hypokinesis with EF 30-35% - cardiology on board - Continue Monitor I/O - will hold further diuretics at this point - monitor fluid status (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 there is not appear to be any abscess tract formation around the annulus, no clear indication for urgent surgery - Blood cx on 03/03 and 03/04 no growth - ID on board - Currently on broad spectrum abx with azithromycin, caspofungin, IV Zosyn and Vanco - Case discussed with cardiology Dr. Alexis Knight at [facility] for possible transfer for angio VAC treatment of endocarditis - follow up with CTS at [facility] does not believe this is vegetation but difficult to assess, STEVEN would be definitive, however, AngioVac procedure would not benefit patient and so patient will not be transferred at this time - will continue empiric treatment with IV abx as above - consider STEVEN if positive blood cultures or clinical deterioration - patient improving and cultures negative to date - will repeat TTE and evaluate valves - if negative - treat for pneumonia as above - repeat TTE read pending Plan DVT ppx: heparin SC Code Status: Full Code Dispo: telemetry ----> patient did not want to wait for TTE result and insisted on leaving AMA despite the risks of leaving before medically cleared Dylon Aldrich MD [facility] Medicine Total Time Total Time Spent Total Time Spent (In Minutes): 25 Total Time Includes: Examination of the Patient, Discharge Planning and Medication Reconciliation Discharge Plan Discharge Items Reason For Visit: RESP FAILURE Follow-up/Referrals: Irvin Iverson MD [Primary Care Provider] - Medications and DC Order Prescriptions: No Action [id number] 3.5-10,000-1 mg/mL-unit/mL-% Solution 4 drp OTIC (EAR) TID aspirin 81 mg Tablet,Delayed Release (Dr/Ec) 81 mg PO DAILY famotidine 20 mg Tablet 20 mg PO BID meclizine 25 mg tablet 25 mg PO TID PRN (Reason: Dizziness) ferrous sulfate 325 mg (65 mg iron) Tablet 325 mg PO DIRECTED Rx Instructions: take every other day nitroglycerin 0.4 mg Tablet, Sublingual 0.4 mg sublingual DAILY PRN (Reason: Chest Pain) gabapentin 300 mg capsule 300 mg PO TID escitalopram oxalate 10 mg Tablet 10 mg PO DAILY liraglutide 0.6 mg/0.1 mL (18 mg/3 mL) Pen Injector 1.2 mg SUBCUT DAILY fluticasone furoate-vilanterol [Breo Ellipta] 200-25 mcg/dose Blister With Device 1 inh INHALATION DAILY cyclobenzaprine 10 mg tablet 10 mg PO BID atorvastatin 80 mg tablet 80 mg PO DAILY torsemide 20 mg tablet 20 mg PO BID albuterol sulfate 2.5 mg /3 mL (0.083 %) solution for nebulization 2.5 mg inhalation Q4 PRN (Reason: WHEEZE/COUGH) trazodone 50 mg tablet 75 mg PO HS polyethylene glycol 3350 [Miralax] 17 gram Powder In Packet 17 g PO DAILY PRN (Reason: Constipation) levetiracetam 500 mg tablet 500 mg PO BID glipizide 10 mg Tablet 10 mg PO DAILY topiramate 25 mg tablet 25 mg PO BID clopidogrel 75 mg tablet 75 mg PO DAILY spironolactone 25 mg tablet 12.5 mg PO QAM meloxicam 7.5 mg tablet 7.5 mg PO DAILY potassium chloride [Klor-Con M20] 20 mEq tablet,ER particles/crystals 20 meq PO DAILY benzonatate 100 mg capsule 100 mg PO TID PRN (Reason: Cough) metformin 1,000 mg tablet 1,000 mg PO BID lisinopril 5 mg tablet 2.5 mg PO DAILY metoprolol succinate 25 mg tablet extended release 24 hr 25 mg PO DAILY albuterol sulfate 90 mcg/actuation HFA aerosol inhaler 2 puff INHALATION Q4 PRN (Reason: Shortness Of Breath Or Wheezing) medroxyprogesterone 150 mg/mL suspension 150 mg IM .Q3MO loratadine 10 mg Tablet 10 mg PO DAILY buspirone 15 mg Tablet 15 mg PO BID escitalopram oxalate 20 mg tablet 20 mg PO DAILY buprenorphine-naloxone 8-2 mg tablet, sublingual 0.5 tab SUBLINGUAL TID omeprazole 20 mg Tablet,Delayed Release (Dr/Ec) 20 mg PO DAILY Admission Data Admit Date/Time: 03/03/22 06:17 Attending Provider: Dylon Aldrich Admit Provider: Malvin Jaime Primary Care Provider: Irvin Iverson Other Providers: Malvin Jaime ; Sandeep Hall ; Wesley Rutherford ; Paresh Gonzales ; Max Gil ; Ryan Robertson ; Dale Sierra ; Niru Mixon ; Gloria Casiano ; Laina Greer ; Jeffrey Barbour ; Enrique Jaquez ; Maxwell Gunderson ; Fernando Maxwell ; Demetri Perez I. ; Buck Segura II ; Teresa Xie ; Dale Ryan ; Lloyd Galvez ; Marcela Plascencia
[2022-03-13 23:01] LABS: Bartonella henselae IgG Negative; Bartonella henselae IgM Ab Negative; Bartonella quintana IgG Ab Negative; Bartonella quintana IgM Ab Negative; Mycoplasma pneumoniae Ab, IgG 0.99 (<=0.90); Mycoplasma pneumoniae Ab, IgM 97 U/mL (<770)
[2022-03-15] MEDS ORDERED: VANCOMYCIN LEVEL ONE (05:30)
== END 2022-03-12 16:00 | disposition left against medical advice (07) | DRG 870 ==
LOC: ED 03:39 → SUATTDRO 06:17 → 1E 06:17 → 4W 03-08 18:36

== ENCOUNTER 2022-04-21 19:38 | Inpatient (IN) ==
[2022-04-21] MEDS ORDERED: ALBUT/IPRATROP 3MG/0.5MG NEB 3 ML VIAL NEB ONE (20:07)
[2022-04-21 20:30] LABS: Basophils # (auto) 0.03 K/uL (0-0.2); Basophils % (auto) 0.2 %; Eosinophils # (auto) 0.01 K/uL (0-0.50); Eosinophils % (auto) 0.1 %; Hematocrit (blood only) 27.7 % (34.1-44.9); Hemoglobin 9.3 g/dl (12.0-16.0); Immature Granulocytes # (auto) 0.11 K/uL (0.00-0.02); Immature Granulocytes % (auto) 0.6 %; Lymphocytes % (auto) 10.2 %; Mean Corpuscular Hemoglobin 27.9 pg (25.0-34.0); Mean Corpuscular Hgb Conc 33.6 g/dL (32.0-36.0); Mean Corpuscular Volume 83.2 fL (80.0-100.0); Mean Platelet Volume 10.6 fL (9.4-12.3); Monocytes # (auto) 1.09 K/uL (0.24-0.82); Monocytes % (auto) 5.8 %; Neutrophils % (auto) 83.1 %; Platelet Count 293 K/uL (130-400); RDW Coefficient of Variation 16.2 % (11.5-14.5); RDW Standard Deviation 49.2 fL (36.4-46.3); Red Blood Count 3.33 M/uL (3.93-5.22); White Blood Count 18.64 K/ul (4.8-10.8)
[2022-04-21 20:55] LABS: Alanine Aminotransferase 21 U/L (7-52); Albumin Globulin Ratio 1.1 (0.9-2); Albumin Level 3.7 gm/dl (3.4-5.0); Alkaline Phosphatase 98 U/L (34-104); Anion Gap 12 (3-11); Aspartate Aminotransferase 30 U/L (13-39); BUN Creatinine Ratio 12.7 (10-20); Bilirubin,Total 0.5 mg/dl (0.2-1.0); Blood Urea Nitrogen 15 mg/dl (6-23); Calcium 8.3 mg/dl (8.5-10.1); Carbon Dioxide 23 mmol/L (21-32); Chloride 96 mmol/L (98-107); Globulin 3.3 gm/dl (2.5-4.0); Glucose 88 mg/dl (70-99(Fasting)); Lipase 6 U/L (11-82); Potassium 4.2 mmol/L (3.5-5.1); Sodium 131 mmol/L (136-145)
[2022-04-21 20:58] LABS: Troponin I High Sensitivity 8.3 pg/ml (0-14)
--- NOTE | 2022-04-21 21:12 | XRay Report ---
XR chest 1V portable CLINICAL HISTORY: Chest pain, nonspecific TECHNIQUE: Single frontal radiograph of the chest was obtained. Comparison: Comparison is made to chest radiograph 03/08/2022 FINDINGS: No lines and tubes are seen. The cardiomediastinal silhouette is normal. Worsening airspace opacities are seen in the right greater than left lower lung. No evidence of pleural effusion or pneumothorax. IMPRESSION: Worsening airspace opacities in the lower lungs which may represent multifocal pneumonia. ACT 112: Negative or not required by law. Electronically signed by: Moi Ring M.D. 04/21/2022 9:09 PM
[2022-04-21 21:17] LABS: Influenza B virus by PCR Negative (Neg); RSV by PCR Negative (Neg); SARS CoV2 RNA(COVID-19) Ceph NEGATIVE (Negative)
[2022-04-21] MEDS ORDERED: CEFEPIME 2,000 MG in SYRINGE 0 ML IV STA (21:20)
[2022-04-21 21:28] LABS: Influenza A virus by PCR Positive (Neg)
[2022-04-21 21:43] LABS: Base Excess VBG -2.3 mEq/L; HCO3 VBG 21 mmol/L; PCO2 VBG 32 mmHg (38-50); PO2 VBG 70 mmHg; pH VBG 7.43 (7.36-7.41)
[2022-04-21] MEDS ORDERED: VANCOMYCIN CONSULT ACTIVE PRN (22:28)
[2022-04-21] MEDS ORDERED: Patient's HEIGHT & WEIGHT Needed STA (22:46)
[2022-04-21] MEDS ORDERED: OSELTAMIVIR PHOSPHATE 75 MG CAP PO STA (22:48)
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
[2022-04-21] MEDS ORDERED: SODIUM CHLORIDE 0.9% 500 ML IV SCH (23:15)
[2022-04-21] MEDS ORDERED: VANCOMYCIN HCL 2,000 MG in SODIUM CHLORIDE 0.9% 500 ML IV STA (23:31)
[2022-04-22] MEDS ORDERED: SODIUM CHLORIDE 0.9% 1000ML 1,000 ML IV SCH (00:09)
[2022-04-22] MEDS ORDERED: BENZONATATE 100 MG CAPSULE PO PRN (00:09)
[2022-04-22] MEDS ORDERED: ALBUTEROL HFA 8 GM INHALER INH PRN (00:09)
[2022-04-22] MEDS ORDERED: ACETAMINOPHEN 325 MG TAB PO PRN (00:09)
[2022-04-22] MEDS ORDERED: GLUCAGON FOR INJ 1 MG VIAL SQ PRN (00:09)
[2022-04-22] MEDS ORDERED: NITROGLYCERIN SL 0.4 MG/TAB TAB SL PRN ×2 (00:09)
[2022-04-22] MEDS ORDERED: GLUCOSE 40% GEL 15 GM TUBE PO PRN (00:09)
[2022-04-22] MEDS ORDERED: GLUCOSE 10 TAB/TUBE PO PRN (00:09)
[2022-04-22] MEDS ORDERED: DEXTROSE 50% 50 ML SYRINGE IV PRN (00:09)
[2022-04-22] MEDS ORDERED: POLYETHYLENE (MIRALAX) 17 GM PACK PO PRN (00:09)
[2022-04-22] MEDS ORDERED: CARBOHYDRATES FOR HYPOGLYCEMIA PO PRN (00:09)
[2022-04-22] MEDS: levETIRAcetam 500 MG TAB PO SCH ×3 (02:07→21:19)
[2022-04-22] MEDS: ENOXAPARIN INJ 40 MG/0.4 ML SYR SQ SCH ×2 (02:07→21:18)
[2022-04-22] MEDS: TOPIRAMATE 25 MG TAB PO SCH ×3 (02:07→21:20)
[2022-04-22] MEDS: OSELTAMIVIR PHOSPHATE 75 MG CAP PO SCH ×3 (02:07→21:22)
[2022-04-22] MEDS: DOXYCYCLINE HYCLATE 100 MG CAP PO SCH ×3 (02:07→21:17)
[2022-04-22] MEDS: INSULIN ASPART PER UNIT SC SCH ×5 (02:27→20:45)
--- NOTE | 2022-04-22 03:36 | History and Physical Report ---
DATE OF ADMISSION: 04/21/2022. CHIEF COMPLAINT: Shortness of breath. 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 The patient was somewhat tachycardic in the ER. Temperature spike of 37.8, saturating 93% on 4 L. The patient able to talk and give all history. Influenza A PCR came back positive. Chest x-ray showing worsening airspace opacity in the lower lungs representing multifocal pneumonia. The patient was in the hospital on 03/03/2022 with acute respiratory failure, multifocal pneumonia. She was intubated at that time. Sputum culture grew Staphylococcus intermedius. There was a question of endocarditis of tricuspid valve on echo, but negative blood cultures. As pr progress notes at that [place] [facility] [place] and they did not feel any vegetation and even if so thought she was not a candidate for AngioVac procedure.Also there was a plan for transthoracic echocardiogram, but it seems like the patient signed out AMA before it was done . The patient sometimes complains of chest tightness, cough, brining up phlegm, feeling palpitations,denies any fever at home. Has headache, some neck pain, but no neck stiffness. Has chronic back issues, ambulating without support, sometimes uses a cane. No nausea, no vomiting, no abdominal pain. Normal bowel and bladder movements. ALLERGIES: LIDOCAINE, PROCAINE, PENICILLIN, STRAWBERRIES, CEPHALEXIN, TRAMADOL, AZITHROMYCIN. PAST MEDICAL HISTORY: As mentioned above. PAST SURGICAL HISTORY: Cardiac catheterization, carpal tunnel surgery, dental surgery, incision and drainage, lumbar disc arthroplasty, lumbar puncture, cardiac stent placement, tonsillectomy, cholecystectomy, spinal fusion surgery, transesophageal echo in 2020. MEDICATIONS: The patient is on albuterol 2 puffs inhalation q. 4 hours p.r.n., aspirin 81 mg p.o. daily, atorvastatin 80 mg p.o. daily, benzonatate 100 mg p.o. t.i.d. p.r.n., buprenorphine naloxone 8-2mg tablet sublingual t.i.d., buspirone 15 mg p.o. b.i.d., Plavix 75 mg p.o. daily, cyclobenzaprine 10 mg p.o. b.i.d., Lexapro 10 mg p.o. daily, famotidine 20 mg p.o. b.i.d., ferrous sulfate 325 mg every other day, Breo Ellipta 1 inhalation daily, gabapentin 300 mg p.o. daily, glipizide 10 mg p.o. daily, Keppra 500 mg p.o. b.i.d., lisinopril 2.5 mg p.o. daily, medroxyprogesterone 150 mg IM q. 3 months, meloxicam 7.5 mg p.o. daily, metformin 1000 mg p.o. b.i.d., metoprolol succinate 25 mg p.o. daily, nitroglycerin 0.4 mg sublingual p.r.n., omeprazole 20 mg p.o. daily, MiraLax 17 grams p.o. daily p.r.n., potassium chloride 20 mEq p.o. daily, spironolactone 12.5 mg p.o. a.m., Bactrim 1 tablet p.o. b.i.d. 20 tablets, topiramate 25 mg p.o. b.i.d., torsemide 20 mg p.o. b.i.d., trazodone 75 mg p.o. at bedtime. FAMILY HISTORY: Significant for aunt has diabetes; mother has diabetes, bypass surgery, hypertension. Brother has Crohn's disease. Mother born with only one kidney. SOCIAL HISTORY: Single, smokes 2 packs of cigarettes for 31 years. No alcohol use. The patient does not use drugs currently, history of cocaine, methamphetamine in the past. REVIEW OF SYSTEMS: As per HPI. Rest of review of systems is negative. PHYSICAL EXAMINATION: GENERAL: The patient is of moderate build, not in acute distress. VITAL SIGNS: Temperature 37.8, pulse 140, respiratory rate 20, blood pressure 102/54, oxygen 93% on 4 L. HEENT: Pupils equal, round and reactive to light. Oral mucosa moist. NECK: No JVD, no neck masses. CARDIOVASCULAR: S1 and S2 heard. Tachycardia. No obvious murmurs heard. RESPIRATORY SYSTEM: Normal AP diameter. No accessory muscle use. Mild bilateral rhonchi heard. No wheezing or crackles. ABDOMEN: Soft, bowel sounds present, nontender, no distention. CENTRAL NERVOUS SYSTEM: Alert and oriented. Speech is clear. No facial droops. Able to give history. Obeys simple commands. Insight is okay. Moves extremities. EXTREMITIES: Bilateral lower extremities mild pedal edema present, no erythema seen. LABORATORY DATA: WBC 18.6, hemoglobin 9.3, hematocrit 27.7, platelets 293. Venous blood gas, pH 7.43, pCO2 . Sodium 131, potassium 4.2, chloride 96, bicarbonate 23, BUN 15, creatinine 1.1, serum glucose 88, calcium 8.3, total bilirubin 0.5, AST 30, ALT 21, alkaline phosphatase 98. Troponin I high sensitivity 8.3, lipase 6. SARS-CoV-2 PCR negative. Influenza A PCR positive. Influenza B PCR negative. RSV PCR negative. IMAGING DATA: Chest x-ray, worsening of airspace opacities in the lower lungs, this might represents multifocal pneumonia. EKG: Sinus tachycardia at rate of 141. Nonspecific ST abnormalities. QTc of 431. ASSESSMENT AND PLAN: This is a 42-year-old female presents with shortness of breath. 1. Shortness of breath secondary to bilateral multifocal pneumonia, asthma exacerbation, influenza A positive. We will continue with nebs around the clock and p.r.n., IV Solu-Medrol 40 t.i.d. and IV antibiotics, Tamiflu. Monitor in the tele floor. 2. Acute on chronic respiratory failure secondary to above. 3. History of systolic and diastolic CHF, recent echo showed EF of 30-35% and also moderate valvular aortic stenosis and diastolic congestive heart failure: Holding diuretics for now. Continue metoprolol with hold parameters. Monitor for volume overload. restart diuretics as soon as possible. Follow echocardiogram. Consult cardiology in the a.m. 4. Endocarditis? In last admission echo showed possible vegetation. Blood cultures negative. Sputum culture grew Staphylococcus intermedius, patient was treated with IV antibiotics. It looks like [facility] [place] the patient and did not feel there is vegetation and even so thought the patient was not a candidate for AngioVac procedure and it looks like there was a plan for STEVEN, but the patient signed out AMA. Continue with IV cefepime and IV vancomycin and p.o. doxycycline for now and we will repeat echo and consult cardiology and follow the blood cultures. Monitor the patient closely. 5. Sepsis. The patient meets criteria for sepsis with tachycardia, fever and elevated white count, pneumonia. Placed on fluids,500cc bolus and then normal saline 75 mL per hour as the patient has history of congestive heart failure.Monitor volume status. Getting antibiotics . Closely monitor the hemodynamics 6. Diabetes: Hold home medication. Place on insulin sliding scale. Follow blood sugars closely. 7. History of coronary artery disease, status post stent. On aspirin, Plavix, statin and beta vijay. Follow an echocardiogram. 8. History of depression and anxiety. Continue buspirone and Lexapro. 9. Hypertension, on lisinopril, metoprolol and diuretics .. Will hold lisinopril and diuretics for now until sepsis improves We will monitor the blood pressure. 10. History of seizures. On Keppra. 11. History of chronic kidney disease, stage III: Presently with creatinine of 1.1. We will follow the labs. 12. History of iron deficiency anemia, hemoglobin of 9.3, seems stable. We will monitor.Will check Hemoccult.. 13. History of narcotic addiction, on Suboxone. We will continue it. 14. Deep venous thrombosis prophylaxis: Placed on Lovenox. DISPOSITION: Closely monitor in the tele floor. PT/OT prior to discharge. Social service to help with discharge planning. Level 1 full code. Job ID: [id number] [facility]
[2022-04-22] MEDS: CEFEPIME 2,000 MG in SYRINGE 0 ML IV SCH ×3 (05:51→21:22)
--- NOTE | 2022-04-22 06:28 | Communication Note ---
Date of Service: April 22, 2022 Held Home diuretics and potassium supplement. To monior volume status. Thanks
[2022-04-22 06:31] LABS: Basophils # (auto) 0.03 K/uL (0-0.2); Basophils % (auto) 0.2 %; Hematocrit (blood only) 26.2 % (34.1-44.9); Hemoglobin 8.6 g/dl (12.0-16.0); Immature Granulocytes # (auto) 0.12 K/uL (0.00-0.02); Immature Granulocytes % (auto) 0.7 %; Lymphocytes # (auto) 1.44 K/uL (1.2-3.4); Lymphocytes % (auto) 8.5 %; Mean Corpuscular Hemoglobin 27.3 pg (25.0-34.0); Mean Corpuscular Hgb Conc 32.8 g/dL (32.0-36.0); Mean Corpuscular Volume 83.2 fL (80.0-100.0); Mean Platelet Volume 10.6 fL (9.4-12.3); Monocytes # (auto) 0.58 K/uL (0.24-0.82); Monocytes % (auto) 3.4 %; Neutrophils # (auto) 14.81 K/uL (1.4-6.5); Neutrophils % (auto) 87.2 %; Platelet Count 283 K/uL (130-400); RDW Coefficient of Variation 16.3 % (11.5-14.5); RDW Standard Deviation 49.6 fL (36.4-46.3); Red Blood Count 3.15 M/uL (3.93-5.22); White Blood Count 16.98 K/ul (4.8-10.8)
[2022-04-22 06:51] LABS: BUN Creatinine Ratio 16.4 (10-20); Calcium 7.5 mg/dl (8.5-10.1); Creatinine Clr Calc Pharmacy 60.2 ml/min; Est GFR (African American) 62.4 ml/min; Est GFR (Non-African American) 53.8 ml/min; Magnesium 1.5 mg/dl (1.7-2.4); Potassium 4.9 mmol/L (3.5-5.1)
[2022-04-22 06:57] LABS: Troponin I High Sensitivity 5.6 pg/ml (0-14)
[2022-04-22] MEDS: IPRATROPIUM BROMIDE NEB SOLN 0.02% 2.5 ML VIAL INH SCH ×4 (07:13→18:02)
[2022-04-22] MEDS: LEVALBUTEROL 1.25MG/0.5ML NEB INH SCH ×4 (07:13→18:02)
[2022-04-22] MEDS: MAGNESIUM SULFATE / D5W 1 GM/100 ML BAG IV SCH ×2 (08:33→10:30)
[2022-04-22] MEDS: methylPREDNISolone 40 MG in SYRINGE 0 ML IV SCH ×2 (08:34→21:16)
[2022-04-22] MEDS: CYCLOBENZAPRINE HCL 10 MG TAB PO SCH ×2 (08:35→21:17)
[2022-04-22] MEDS: busPIRone 15 MG TAB PO SCH ×2 (08:36→21:16)
[2022-04-22] MEDS: LORATADINE 10 MG TAB PO SCH (08:36)
[2022-04-22] MEDS: ASPIRIN 81 MG ECTAB PO SCH (08:36)
[2022-04-22] MEDS: ATORVASTATIN 40 MG TAB PO SCH (08:36)
[2022-04-22] MEDS: SPIRONOLACTONE 12.5 MG TAB PO SCH (08:36)
[2022-04-22] MEDS: FAMOTIDINE 20 MG TAB PO SCH ×2 (08:36→21:19)
[2022-04-22] MEDS: CLOPIDOGREL BISULFATE 75 MG TAB PO SCH (08:36)
[2022-04-22] MEDS: GABAPENTIN 300 MG CAP PO SCH ×3 (08:36→21:19)
[2022-04-22] MEDS: PANTOprazole 40 MG TAB PO SCH (08:37)
[2022-04-22] MEDS: METOPROLOL SUCC 25MG EXT REL TAB PO SCH (08:37)
[2022-04-22] MEDS: FLUTICASONE/VILANTEROL 200/25MCG 14 PUFFS/INHALER INH SCH (08:37)
[2022-04-22] MEDS: ESCITALOPRAM OXALATE 20 MG TAB PO SCH (08:37)
[2022-04-22] MEDS: ESCITALOPRAM OXALATE 10 MG TAB PO SCH (08:37)
[2022-04-22] MEDS: NEOMYCIN/POLYMYX/HYDROCORT OT SOLN 10 ML BTL OT SCH ×3 (08:38→21:20)
[2022-04-22] MEDS: BUPRENORPHINE/NALOXONE 8/2 MG TAB SL SCH ×3 (08:49→21:16)
[2022-04-22] MEDS ORDERED: POTASSIUM CHLORIDE CRTAB 20 MEQ TABCR PO SCH (09:00)
[2022-04-22] MEDS ORDERED: XOPENEX/ATROVENT 1.25mg/0.5MG NEB COMBO NEB SCH (09:00)
[2022-04-22] MEDS ORDERED: TORSEMIDE 20 MG TAB PO SCH (09:00)
[2022-04-22] MEDS ORDERED: lisinopril 2.5 MG TAB PO SCH (09:00)
--- NOTE | 2022-04-22 09:48 | Pharmacy Report ---
Pharmacy PK ABX Note - Date of Service April 22, 2022 - Assessment and Plan Assessment 42 year old F receiving vancomycin and cefepime for treatment of multifocal pneumonia. Influenza A (+), MRSA nasal pending. Blood cultures pending. Renal function is slightly elevated from baseline and trending upward (1.18 --> 1.22; baseline ~ 0.9) Day #1 of antimicrobial therapy. Plan Vancomycin * Loading dose: 2000 mg IV x 1 * Maintenance dose: 1500 mg IV every 24 hours * Regimen is predicted to achieve target AUC/YENNI of 400-600 mg/L.hr * Will obtain a non-steady state level tomorrow given changing renal function Pharmacy will continue to follow and will adjust dose/frequency as necessary. Thank you. Pharmacy has transitioned to AUC monitoring for vancomycin. AUC/YENNI is the preferred PK/PD target and is associated with decreased risk of nephrotoxicity compared to traditional trough targets.
[2022-04-22] MEDS ORDERED: VANCOMYCIN HCL 1,000 MG in SODIUM CHLORIDE 0.9% 250 ML IV SCH (12:00)
[2022-04-22] MEDS: VANCOMYCIN HCL 1,500 MG in SODIUM CHLORIDE 0.9% 500 ML IV SCH (12:46)
--- NOTE | 2022-04-22 12:51 | Hospitalist Progress Note ---
Date of Service April 22, 2022 Assessment & Plan (1) Acute exacerbation of chronic obstructive pulmonary disease: Plan: - in the setting of influenza A infection - on home O2 at 2-4L NC baseline - increase O2 as needed, wean as tolerated - started on steroids - will continue for now - continue Tamiflu for 5 days - IVF as needed - supportive care - telemetry monitoring (2) Influenza A: Plan: - Tamiflu as above as symptoms started about 2 days [employer] - supportive care (3) Tricuspid valve mass: Plan: - noted on last admission after patient left AMA - was planning on STEVEN but patient left - will get TTE to evaluate any changes - repeat blood cultures drawn on this admission - negative on last admission - likely not vegetation given stable clinical status prior to influenza A infection (4) Multifocal pneumonia: Plan: - noted on last admission - will get TTE as above - blood cultures - could be related to influenza pneumonia ths time - will need follow up CT scan at some point, possibly this admission - started on vancomycin and cefepime - will follow cultures and discontinue in 48 hours if negative (5) Sepsis: Plan: - likely due to influenza infection - Tamiflu and supportive care as above - blood cultures pending - vancomycin and cefepime pending cultures - TTE to evaluate for vegetation (6) CHF (congestive heart failure): Plan: - does not appear to be in exacerbation - holding diuretics in setting of sepsis - will monitor fluid status - restart diuretics and BP meds as tolerated (7) HTN (hypertension): Plan: - BP well controlled at this time - holding BP meds in the setting of sepsis - restart as tolerated (8) HLD (hyperlipidemia): Plan: - continue statin Plan DVT ppx: lovenox Code Status: Full Code Dispo: PCU Dylon Aldrich MD [facility] Medicine Admission and Anticipated Discharge Date Admission Date: April 21, 2022 Subjective Patient with DM2, chronic hypoxemic respiratory failure on home O2 NC 2-4L in setting of moderate persistent asthma, HFrEF (EF 30% 02/2022), HLD, HTN, AV stenosis, CAD s/p stenting, chronic hep C, CKD, anemai, h/o OUD on suboxone, tobacco use disorder presented with shortness of breath, found to have Influenza infection. Started on IVF and Tamiflu. On home O2, being supported here with O2 NC. Patient feeling short of breath with cough productive of sputum. Denies chest pain, n/v/d, abdominal pain, dysuria. had decreased appetite but feeling a little better. Review of Systems Review of Systems: All systems reviewed & are unremarkable except as noted in Subjective Physical Exam Physical Exam: GENERAL: The patient is of moderate build, not in acute distress. HEENT: Pupils equal, round and reactive to light. Oral mucosa moist. NECK: No JVD, no neck masses. CARDIOVASCULAR: S1 and S2 heard. Tachycardia. No obvious murmurs heard. RESPIRATORY SYSTEM: Normal AP diameter. No accessory muscle use. Mild bilateral rhonchi heard. No wheezing or crackles. ABDOMEN: Soft, bowel sounds present, nontender, no distention. CENTRAL NERVOUS SYSTEM: Alert and oriented. Speech is clear. No facial droops. Able to give history. Obeys simple commands. Insight is okay. Moves extremities. EXTREMITIES: Bilateral lower extremities mild pedal edema present, no erythema seen. Results & Data Results & Data ([facility]) Vital Signs (Past 12 Hours) Vital Signs Temp Pulse Pulse Resp BP Pulse Ox O2 Del Method 04/22/22 11:29 36.3 C L 95 H 20 122/75 95 Nasal Cannula 04/22/22 11:08 87 18 99 Nasal Cannula 04/22/22 08:00 106 H 04/22/22 08:00 Nasal Cannula 04/22/22 07:15 104 H 18 90 Nasal Cannula 04/22/22 03:03 108 H O2 Flow Rate 04/22/22 11:29 5 04/22/22 11:08 5 04/22/22 08:00 04/22/22 08:00 4 04/22/22 07:15 4 04/22/22 03:03 Diagnostic Findings Laboratory Results WBC 16.98 K/ul (4.8-10.8) H 04/22/22 06:10 RBC 3.15 M/uL (3.93-5.22) L 04/22/22 06:10 Hgb 8.6 g/dl (12.0-16.0) L 04/22/22 06:10 Hct 26.2 % (34.1-44.9) L 04/22/22 06:10 MCV 83.2 fL (80.0-100.0) 04/22/22 06:10 MCH 27.3 pg (25.0-34.0) 04/22/22 06:10 MCHC 32.8 g/dL (32.0-36.0) 04/22/22 06:10 RDW Std Deviation 49.6 fL (36.4-46.3) H 04/22/22 06:10 RDW Coeff of Hannah 16.3 % (11.5-14.5) H 04/22/22 06:10 Plt Count 283 K/uL (130-400) 04/22/22 06:10 MPV 10.6 fL (9.4-12.3) 04/22/22 06:10 Immature Gran % (Auto) 0.7 % 04/22/22 06:10 Neut % (Auto) 87.2 % 04/22/22 06:10 Lymph % (Auto) 8.5 % 04/22/22 06:10 [place] % (Auto) 3.4 % 04/22/22 06:10 Eos % (Auto) 0.0 % 04/22/22 06:10 Baso % (Auto) 0.2 % 04/22/22 06:10 Neut # (Auto) 14.81 K/uL (1.4-6.5) H 04/22/22 06:10 Lymph # (Auto) 1.44 K/uL (1.2-3.4) 04/22/22 06:10 [place] # (Auto) 0.58 K/uL (0.24-0.82) 04/22/22 06:10 Eos # (Auto) 0.00 K/uL (0-0.50) 04/22/22 06:10 Baso # (Auto) 0.03 K/uL (0-0.2) 04/22/22 06:10 Immature Gran # (Auto) 0.12 K/uL (0.00-0.02) H 04/22/22 06:10 VBG pH 7.43 (7.36-7.41) H 04/21/22 21:35 VBG pCO2 32 mmHg (38-50) L 04/21/22 21:35 VBG pO2 70 mmHg 04/21/22 21:35 VBG HCO3 21 mmol/L 04/21/22 21:35 VBG O2 Saturation 96.0 % 04/21/22 21:35 VBG Base Excess -2.3 mEq/L 04/21/22 21:35 Sodium 131 mmol/L (136-145) L 04/22/22 06:10 Potassium 4.9 mmol/L (3.5-5.1) 04/22/22 06:10 Chloride 101 mmol/L (98-107) 04/22/22 06:10 Carbon Dioxide 22 mmol/L (21-32) 04/22/22 06:10 Anion Gap 8 (3-11) 04/22/22 06:10 BUN 20 mg/dl (6-23) 04/22/22 06:10 Creatinine 1.22 mg/dl (0.6-1.2) H 04/22/22 06:10 Est Cr Clr Drug Dosing 60.2 ml/min 04/22/22 06:10 Est GFR ( Amer) 62.4 ml/min 04/22/22 06:10 Est GFR (Non-Af Amer) 53.8 ml/min 04/22/22 06:10 BUN/Creatinine Ratio 16.4 (10-20) 04/22/22 06:10 Glucose 138 mg/dl (70-99(Fasting)) H 04/22/22 06:10 POC Glucose 160 mg/dl (70-99) H 04/22/22 05:16 Calcium 7.5 mg/dl (8.5-10.1) L 04/22/22 06:10 Magnesium 1.5 mg/dl (1.7-2.4) L 04/22/22 06:10 Total Bilirubin 0.5 mg/dl (0.2-1.0) 04/21/22 20:19 AST 30 U/L (13-39) 04/21/22 20:19 ALT 21 U/L (7-52) 04/21/22 20:19 Alkaline Phosphatase 98 U/L (34-104) 04/21/22 20:19 Troponin I High Sens 5.6 pg/ml (0-14) 04/22/22 06:10 Total Protein 7.0 gm/dl (6.0-8.3) 04/21/22 20:19 Albumin 3.7 gm/dl (3.4-5.0) 04/21/22 20:19 Globulin 3.3 gm/dl (2.5-4.0) 04/21/22 20:19 Albumin/Globulin Ratio 1.1 (0.9-2) 04/21/22 20:19 Lipase 6 U/L (11-82) L 04/21/22 20:19 Nasal Screen MRSA (PCR) Negative (Negative) 04/22/22 09:20 SARS-CoV-2 (PCR) NEGATIVE (Negative) 04/21/22 20:19 Influenza Type A (PCR) Positive (Neg) A* 04/21/22 20:19 Influenza Type B (PCR) Negative (Neg) 04/21/22 20:19 RSV (RT-PCR) Negative (Neg) 04/21/22 20:19 Impressions Chest X-Ray 04/21/22 20:08 XR chest 1V portable CLINICAL HISTORY: Chest pain, nonspecific TECHNIQUE: Single frontal radiograph of the chest was obtained. Comparison: Comparison is made to chest radiograph 03/08/2022 FINDINGS: No lines and tubes are seen. The cardiomediastinal silhouette is normal. Worsening airspace opacities are seen in the right greater than left lower lung. No evidence of pleural effusion or pneumothorax. IMPRESSION: Worsening airspace opacities in the lower lungs which may represent multifocal pneumonia. ACT 112: Negative or not required by law. Electronically signed by: Mio Ring M.D. 04/21/2022 9:09 PM Medications Administered Current Inpatient Medications Acetaminophen (Acetaminophen 325 Mg Tab) 650 mg PO Q4H PRN PRN Reason: Pain or Fever Stop: 05/22/22 00:08 Albuterol (Albuterol Hfa 8 Gm Inhaler) 2 puffs INH Q4 PRN PRN Reason: Shortness Of Breath Or Wheezin Stop: 05/22/22 00:08 Aspirin (Aspirin 81 Mg Ectab) 81 mg PO DAILY [facility] Stop: 05/22/22 08:59 Last Admin: 04/22/22 08:36 Dose: 81 mg Atorvastatin Calcium (Atorvastatin 40 Mg Tab) 80 mg PO DAILY [facility] Stop: 05/22/22 08:59 Last Admin: 04/22/22 08:36 Dose: 80 mg Benzonatate (Benzonatate 100 Mg Capsule) 100 mg PO TID PRN PRN Reason: Cough Stop: 05/22/22 00:08 Buprenorphine/Naloxone (Buprenorphine/Naloxone 8/2 Mg Tab) 0.5 tab SL TID [facility] Stop: 05/22/22 08:59 Last Admin: 04/22/22 08:49 Dose: 0.5 tab Buspirone HCl (Buspirone 15 Mg Tab) 15 mg PO BID [facility] Stop: 05/22/22 08:59 Last Admin: 04/22/22 08:36 Dose: 15 mg Clopidogrel Bisulfate (Clopidogrel Bisulfate 75 Mg Tab) 75 mg PO DAILY [facility] Stop: 05/22/22 08:59 Last Admin: 04/22/22 08:36 Dose: 75 mg Cyclobenzaprine HCl (Cyclobenzaprine Hcl 10 Mg Tab) 10 mg PO BID [facility] Stop: 05/22/22 08:59 Last Admin: 04/22/22 08:35 Dose: 10 mg Dextrose (Dextrose 50% 50 Ml Syringe) 25 - 50 ml IV UD PRN; Protocol PRN Reason: Hypoglycemia Protocol Stop: 05/22/22 00:08 Doxycycline Hyclate (Doxycycline Hyclate 100 Mg Cap) 100 mg PO BID [facility] Stop: 04/29/22 00:08 Last Admin: 04/22/22 08:35 Dose: 100 mg Enoxaparin Sodium (Enoxaparin Inj 40 Mg/0.4 Ml Syr) 40 mg SQ HS [facility] Stop: 05/22/22 00:08 Last Admin: 04/22/22 02:07 Dose: 40 mg Escitalopram Oxalate (Escitalopram Oxalate 10 Mg Tab) 10 mg PO DAILY [facility] Stop: 05/22/22 08:59 Last Admin: 04/22/22 08:37 Dose: 10 mg Escitalopram Oxalate (Escitalopram Oxalate 20 Mg Tab) 20 mg PO DAILY [facility] Stop: 05/22/22 08:59 Last Admin: 04/22/22 08:37 Dose: 20 mg Famotidine (Famotidine 20 Mg Tab) 20 mg PO BID [facility] Stop: 05/22/22 08:59 Last Admin: 04/22/22 08:36 Dose: 20 mg Fluticasone/Vilanterol (Fluticasone/Vilanterol 200/25mcg 14 Puffs/Inhaler) 1 puffs INH DAILY [facility] Stop: 05/22/22 08:59 Last Admin: 04/22/22 08:37 Dose: 1 puffs Gabapentin (Gabapentin 300 Mg Cap) 300 mg PO TID [facility] Stop: 05/22/22 08:59 Last Admin: 12/25/22 08:36 Dose: 300 mg Glucagon (Glucagon For Inj 1 Mg Vial) 1 mg SQ UD PRN; Protocol PRN Reason: Hypoglycemia Protocol Stop: 05/22/22 00:08 Glucose (Glucose 40% Gel 15 Gm Tube) 15 - 30 gm PO UD PRN; Protocol PRN Reason: Hypoglycemia Protocol Stop: 05/22/22 00:08 Glucose (Glucose 10 Tab/Tube) 4 - 8 tab PO UD PRN; Protocol PRN Reason: Hypoglycemia Treatment Stop: 05/22/22 00:08 Cefepime HCl 2,000 mg/ Syringe 20 mls @ 5 mls/min IV Q8H [facility]; Protocol Stop: 04/29/22 05:59 Last Admin: 04/22/22 05:51 Dose: 5 mls/min Methylprednisolone 40 mg/ (Syringe) 0.64 mls @ 1.5 mls/min IV Q12H [facility] Stop: 05/22/22 08:59 Last Admin: 04/22/22 08:34 Dose: 1.5 mls/min Vancomycin HCl 1,500 mg/ (Sodium Chloride) 530 mls @ 200 mls/hr IV Q24H [facility]; Protocol Stop: 04/29/22 11:59 Last Admin: 04/22/22 12:46 Dose: 200 mls/hr Insulin Aspart (Insulin Aspart Per Unit) 0 units SC Q6 [facility] Stop: 05/22/22 01:59 Last Admin: 04/22/22 12:42 Dose: Not Given Ipratropium [place] (Ipratropium [place] Neb Soln 0.02% 2.5 Ml Vial) 0.5 mg INH QIDR [facility] Stop: 05/22/22 06:59 Last Admin: 04/22/22 11:07 Dose: 0.5 mg Levalbuterol HCl (Levalbuterol 1.25mg/0.5ml Neb) 1.25 mg INH QIDR [facility] Stop: 05/22/22 06:59 Last Admin: 04/22/22 11:07 Dose: 1.25 mg Levetiracetam (Levetiracetam 500 Mg Tab) 500 mg PO BID [facility] Stop: 05/22/22 00:08 Last Admin: 04/22/22 08:35 Dose: 500 mg Lisinopril (Lisinopril 2.5 Mg Tab) 2.5 mg PO DAILY [facility] Stop: 05/22/22 08:59 Loratadine (Loratadine 10 Mg Tab) 10 mg PO DAILY [facility] Stop: 05/22/22 08:59 Last Admin: 04/22/22 08:36 Dose: 10 mg Metoprolol Succinate (Metoprolol Succ 25mg Ext Rel Tab) 25 mg PO DAILY [facility] Stop: 05/22/22 08:59 Last Admin: 04/22/22 08:37 Dose: 25 mg Miscellaneous (Carbohydrates For Hypoglycemia ) 15 - 30 gm PO UD PRN PRN Reason: Hypoglycemia Protocol Stop: 05/22/22 00:08 Miscellaneous Information (Vancomycin Consult Active) 1 each N/A UD PRN PRN Reason: Consult Stop: 05/21/22 22:27 Neomycin/Polymyxin/Hydrocortisone (Neomycin/Polymyx/Hydrocort Ot Soln 10 Ml Btl) 4 drops OT TID [facility] Stop: 05/22/22 08:59 Last Admin: 04/22/22 08:38 Dose: Not Given Nitroglycerin (Nitroglycerin Sl 0.4 Mg/Tab Tab) 0.4 mg SL UD PRN PRN Reason: Chest Pain Stop: 05/22/22 00:08 Oseltamivir Phosphate (Oseltamivir Phosphate 75 Mg Cap) 75 mg PO BID [facility]; Protocol Stop: 04/27/22 00:59 Last Admin: 04/22/22 08:34 Dose: 75 mg Pantoprazole Sodium (Pantoprazole 40 Mg Tab) 40 mg PO DAILY [facility] Stop: 05/22/22 08:59 Last Admin: 04/22/22 08:37 Dose: 40 mg Polyethylene Glycol (Polyethylene (Miralax) 17 Gm Pack) 17 gm PO DAILY PRN PRN Reason: Constipation Stop: 05/22/22 00:08 Potassium Chloride (Potassium Chloride Crtab 20 Meq Tabcr) 20 meq PO DAILY [facility] Stop: 05/22/22 08:59 Spironolactone (Spironolactone 12.5 Mg Tab) 12.5 mg PO QAM [facility] Stop: 05/22/22 08:59 Last Admin: 04/22/22 08:36 Dose: 12.5 mg Topiramate (Topiramate 25 Mg Tab) 25 mg PO BID [facility] Stop: 05/22/22 00:08 Last Admin: 04/22/22 08:35 Dose: 25 mg Torsemide (Torsemide 20 Mg Tab) 20 mg PO BID17 [facility] Stop: 05/22/22 08:59 Trazodone HCl (Trazodone Hcl 50 Mg Tab) 75 mg PO HS [facility] Stop: 05/22/22 20:59 (1) CHF (congestive heart failure) Heart failure chronicity: acute Heart failure type: unspecified Qualified Code(s): I50.9 - Heart failure, unspecified
[2022-04-22] MEDS ORDERED: Nursing to Pharmacy Communication SCH (13:15)
--- NOTE | 2022-04-22 14:35 | Electrocardiogram Report ---
Test Reason : Blood Pressure : / mmHG Vent. Rate : 141 BPM Atrial Rate : 141 BPM P-R Int : 132 ms QRS Dur : 076 ms QT Int : 282 ms P-R-T Axes : 062 053 162 degrees QTc Int : 431 ms Poor data quality, interpretation may be adversely affected Sinus tachycardia Nonspecific ST and T wave abnormality Abnormal ECG When compared with ECG of 07-MAR-2022 10:50, Vent. rate has increased BY 66 BPM Nonspecific T wave abnormality now evident in Lateral leads Confirmed by Jung Metzger ([id number]) on 04/22/2022 2:35:43 PM Referred By: REFERRED SELF Confirmed By:Jung Metzger
--- NOTE | 2022-04-22 16:34 | Cardiology Consultation ---
Date of Consultation April 22, 2022 Assessment & Plan (1) Influenza A: (2) Hypoxia: (3) Acute respiratory distress: (4) HTN (hypertension): (5) HLD (hyperlipidemia): (6) Tricuspid valve mass: (7) Severe tricuspid regurgitation: (8) Aortic stenosis: (9) Opiate abuse, continuous: (10) Bicuspid aortic valve: (11) Hx of drug abuse: (12) History of cardiac cath: Plan Pt presents with acute on chronic hypoxic respiratory failure in the setting of acute Infulenza A infection previous echo suggested tricuspid valve endocarditis with severe tricuspid regurgitation pt was transferred to [facility] at that time for CT surgery eval, TTE repeated at that time and no vegetation visualized repeat echo today shows: normal tricuspid valve in structure and function LV systolic function has also normalized no indication for STEVEN at this time will defer to primary team to treat hypoxic respiratory failure with worsening lower lobe opacities suggestive of multifocal pneumonia History of Present Illness Reason for Consultation: tricuspid valve endocarditis Requesting Physician: CHRISTIAN Attending Physician: Dylon Aldrich MD History of Present Illness Ms. Gonzalez is a medically complex 42-year-old woman who presented to [facility] emergency department on 04/21/2022 with complaints of shortness of breath. She states that this started 1 day prior to presentation. Upon arrival to the emergency department she was found to be hypoxic and chest x-ray revealed worsening bilateral lower lobe opacifications. Influenza a screen came back positive. She was admitted to telemetry. Cardiology consulted given her most recent presentation in February where she came in septic and echocardiogram revealed significantly reduced LV systolic function along with possible tricuspid valve endocarditis and severe tricuspid regurgitation. She was ultim ately transferred to [facility] for cardiothoracic surgery evaluation. There transthoracic echocardiogram did not show the tricuspid valve vegetation and STEVEN was planned, however, the patient left AMA prior to having it completed. Cardiac Problem List: Premature ASCVD Status post 2-vessel coronary intervention in 10/2016, receiving ROJAS to the ramus intermedius and distal circumflex for NTEMI Repeat catheterization on 02/23/2020, s/p PCI with ROJAS to the RCA PDA on 02/23/20 Mixed aortic valve disease, with moderate aortic stenosis and mild aortic regurgitation via September 19, 2020 transesophageal echocardiogram Diastolic congestive heart failure Hypertension Hyperlipidemia Possible tricuspid valve endocarditis 03/20 Allergies Allergy/AdvReac Type Severity Reaction Status Date / Time lidocaine Allergy Intermediate HIVES Verified 07/10/21 21:33 procaine Allergy Intermediate HIVES Verified 07/10/21 21:33 Penicillins Allergy Mild HAD NO Verified 07/10/21 21:33 PROBLEM WITH ZOSYN strawberry Allergy Mild HIVES Verified 07/10/21 21:33 cephalexin AdvReac Intermediate YEAST Verified 07/10/21 21:33 INFECTIONS tramadol AdvReac Intermediate SEIZURES Verified 07/10/21 21:33 azithromycin AdvReac Mild STOMACH Verified 07/10/21 21:33 PAIN Covid vaccine AdvReac Severe stopped Uncoded 04/21/22 23:21 breathing next day Home Medications Medication Instructions Recorded Confirmed Type albuterol sulfate 2.5 mg/3 mL 2.5 mg inhalation Q4 PRN 07/10/21 04/21/22 History (0.083 %) solution for nebulization WHEEZE/COUGH albuterol sulfate 90 mcg/actuation 2 puff inhalation Q4 PRN Shortness 07/10/21 04/21/22 History aerosol inhaler Of Breath Or Wheezing atorvastatin 80 mg tablet 80 mg PO DAILY 07/10/21 04/21/22 History buprenorphine 8 mg-naloxone 2 mg 0.5 tab sublingual TID 07/10/21 04/21/22 Hi story sublingual tablet buspirone 15 mg tablet 15 mg PO BID 07/10/21 04/21/22 History clopidogrel 75 mg tablet 75 mg PO DAILY 07/10/21 04/21/22 History cyclobenzaprine 10 mg tablet 10 mg PO BID 07/10/21 04/21/22 History escitalopram oxalate 20 mg tablet 20 mg PO DAILY 07/10/21 04/21/22 History glipizide 10 mg tablet 10 mg PO DAILY 07/10/21 04/21/22 History levetiracetam 500 mg tablet 500 mg PO BID 07/10/21 04/21/22 History lisinopril 5 mg tablet 2.5 mg PO DAILY 07/10/21 04/21/22 History medroxyprogesterone 150 mg/mL 150 mg IM .Q3MO 07/10/21 04/21/22 History intramuscular suspension meloxicam 7.5 mg tablet 7.5 mg PO DAILY 07/10/21 04/21/22 History metformin 1,000 mg tablet 1,000 mg PO BID 07/10/21 04/21/22 History metoprolol succinate 25 mg 25 mg PO DAILY 07/10/21 04/21/22 History tablet,extended release 24 hr omeprazole 20 mg tablet,delayed 20 mg PO DAILY 07/10/21 04/21/22 History release polyethylene glycol 3350 17 gram 17 g PO DAILY PRN Constipation 07/10/21 04/21/22 History oral powder packet (Miralax) potassium chloride 20 mEq 20 meq PO DAILY 07/10/21 04/21/22 History tablet,extended release(part/cryst) (Klor-Con M) spironolactone 25 mg tablet 12.5 mg PO QAM 07/10/21 04/21/22 History torsemide 20 mg tablet 20 mg PO DAILY PRN Edema 07/10/21 04/21/22 History trazodone 50 mg tablet 75 mg PO HS 07/10/21 04/21/22 History aspirin 81 mg tablet,delayed 81 mg PO DAILY 03/03/22 04/21/22 History release escitalopram oxalate 10 mg tablet 10 mg PO DAILY 03/03/22 04/21/22 History famotidine 20 mg tablet 20 mg PO BID heartburn 03/03/22 04/21/22 History fluticasone furoate 200 1 inh inhalation DAILY PRN 03/03/22 04/21/22 History mcg-vilanterol 25 mcg/dose Shortness Of Breath Or Wheezing inhalation powder (Breo Ellipta) gabapentin 300 mg capsule 300 mg PO TID 03/03/22 04/21/22 History meclizine 25 mg tablet 25 mg PO TID PRN Dizziness 03/03/22 04/21/22 History [id number] 3.5 4 drp otic (ear) TID PRN .. 03/03/22 04/21/22 History mg/mL-10,000 unit/mL-1 % ear solution nitroglycerin 0.4 mg sublingual 0.4 mg sublingual DAILY PRN Chest 03/03/22 04/21/22 History tablet Pain Patient History Medical History Abnormal CT scan, chest Acute electrocardiogram changes Acute respiratory failure with hypoxia Altered mental status, unspecified Aortic regurgitation Aortic stenosis Asthma Atypical chest pain Cannabis abuse Cellulitis of both lower extremities Chronic diastolic CHF (congestive heart failure) Coronary artery disease Depression Diabetes mellitus, type 2 Encounter for smoking cessation counseling GERD (gastroesophageal reflux disease) Gram negative sepsis Hepatitis C "Antibiotic screen positive, quantitative RNA positive 08/30/17" Hepatosplenomegaly History of drug abuse History of DVT (deep vein thrombosis) History of renal calculi Hypertension Hypocalcemia Opiate abuse, continuous Overdose Seizure disorder Surgical History History of cardiac cath 2017- 1 ROJAS to ramus, 2 ROJAS to L circumflex. 40-50% plaque to LAD 2018- distal disease (80%) within PDA History of carpal tunnel surgery History of lumbar spinal fusion Hx of tonsillectomy Status post cholecystectomy Family History Other Diabetes Heart disease Hypertension Kidney stones Seizures Social History Smoking Status: Current every day smoker Tobacco Type: Cigarettes Cigarettes Per Day: <20; Second Hand Exposure: Yes; Hx Alcohol Use: No Hx Substance Use: Yes Non-Prescribed Medications: Heroin, IV Drugs and Methamphetamines Last Used Substance: Unknown Last Used Substance Other:: 4 years ago Substance Use Type Other:: 3 years drug free per record Preferred Language: Ethiopian Communication Ability: Effective Visual Impairment: No Limitations Hearing Ability: Normal 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 No acute distress. HEENT: Normocephalic, atraumatic. Pupils equal, round and reactive to light and accommodation. Extraocular muscles are intact. Anicteric sclera. Moist mucous membranes. Neck: No JVD. No bruit. Cardiovascular: Regular. Positive S-4. Normal S-1 and S-2. No S-3. 3/6 mid to late systolic ejection murmur, greatest at the right sternal border, second intercostal space with radiation to the bilateral carotids. No rubs. Pulmonary: Clear to auscultation bilaterally. No rales, rhonchi, or wheezing. Abdomen: Bowel sounds x 4, soft. No rebound, guarding or tenderness. No organomegaly. Extremities: No clubbing, cyanosis or edema. +2 pedal pulses bilaterally. Skin: Warm and dry. Results & Data ([facility]) Vital Signs (Past 12 Hours) Vital Signs Temp Pulse Pulse Resp BP Pulse Ox O2 Del Method 04/22/22 15:35 36.5 C 96 H 20 96 Nasal Cannula 04/22/22 15:33 90 18 94 Nasal Cannula 04/22/22 13:05 Nasal Cannula 04/22/22 11:29 36.3 C L 95 H 20 122/75 95 Nasal Cannula 04/22/22 11:08 87 18 99 Nasal Cannula 04/22/22 08:00 106 H 04/22/22 08:00 Nasal Cannula 04/22/22 07:15 104 H 18 90 Nasal Cannula O2 Flow Rate 04/22/22 15:35 4 04/22/22 15:33 4 04/22/22 13:05 4 04/22/22 11:29 5 04/22/22 11:08 5 04/22/22 08:00 04/22/22 08:00 4 04/22/22 07:15 4
[2022-04-22] MEDS: traZODone HCL 50 MG TAB PO SCH (21:21)
[2022-04-23] MEDS ORDERED: FLUCONAZOLE 50 MG TAB PO ONE (05:41)
[2022-04-23] MEDS: CEFEPIME 2,000 MG in SYRINGE 0 ML IV SCH (05:42)
[2022-04-23] MEDS: IPRATROPIUM BROMIDE NEB SOLN 0.02% 2.5 ML VIAL INH SCH ×4 (05:52→18:13)
[2022-04-23] MEDS: LEVALBUTEROL 1.25MG/0.5ML NEB INH SCH ×4 (05:53→18:13)
[2022-04-23 07:39] LABS: Hematocrit (blood only) 27.7 % (34.1-44.9); Hemoglobin 8.8 g/dl (12.0-16.0); Mean Corpuscular Hemoglobin 27.2 pg (25.0-34.0); Mean Corpuscular Hgb Conc 31.8 g/dL (32.0-36.0); Mean Corpuscular Volume 85.5 fL (80.0-100.0); Mean Platelet Volume 10.2 fL (9.4-12.3); Platelet Count 306 K/uL (130-400); RDW Coefficient of Variation 16.3 % (11.5-14.5); RDW Standard Deviation 51.4 fL (36.4-46.3); Red Blood Count 3.24 M/uL (3.93-5.22); White Blood Count 12.64 K/ul (4.8-10.8)
[2022-04-23] MEDS: INSULIN ASPART PER UNIT SC SCH ×4 (07:57→20:48)
[2022-04-23 08:01] LABS: Albumin Globulin Ratio 1.1 (0.9-2); Albumin Level 3.6 gm/dl (3.4-5.0); BUN Creatinine Ratio 20.4 (10-20); Bilirubin,Total 0.3 mg/dl (0.2-1.0); Calcium 8.5 mg/dl (8.5-10.1); Creatinine Clr Calc Pharmacy 66.8 ml/min; Est GFR (African American) 72.3 ml/min; Est GFR (Non-African American) 62.4 ml/min; Globulin 3.4 gm/dl (2.5-4.0); Magnesium 2.4 mg/dl (1.7-2.4); Potassium 4.5 mmol/L (3.5-5.1)
[2022-04-23 08:22] LABS: Prothrombin Time 10.9 Seconds (9.0-12.0)
[2022-04-23] MEDS: methylPREDNISolone 40 MG in SYRINGE 0 ML IV SCH ×2 (08:59→21:02)
[2022-04-23] MEDS: CLOPIDOGREL BISULFATE 75 MG TAB PO SCH (09:00)
[2022-04-23] MEDS: ASPIRIN 81 MG ECTAB PO SCH (09:00)
[2022-04-23] MEDS: OSELTAMIVIR PHOSPHATE 75 MG CAP PO SCH ×2 (09:00→21:02)
[2022-04-23] MEDS: PANTOprazole 40 MG TAB PO SCH (09:01)
[2022-04-23] MEDS: LORATADINE 10 MG TAB PO SCH (09:01)
[2022-04-23] MEDS: ESCITALOPRAM OXALATE 10 MG TAB PO SCH (09:01)
[2022-04-23] MEDS: METOPROLOL SUCC 25MG EXT REL TAB PO SCH (09:01)
[2022-04-23] MEDS: ESCITALOPRAM OXALATE 20 MG TAB PO SCH (09:01)
[2022-04-23] MEDS: TOPIRAMATE 25 MG TAB PO SCH ×2 (09:02→21:02)
[2022-04-23] MEDS: ATORVASTATIN 40 MG TAB PO SCH (09:02)
[2022-04-23] MEDS: levETIRAcetam 500 MG TAB PO SCH ×2 (09:03→21:02)
[2022-04-23] MEDS: DOXYCYCLINE HYCLATE 100 MG CAP PO SCH (09:03)
[2022-04-23] MEDS: CYCLOBENZAPRINE HCL 10 MG TAB PO SCH ×2 (09:03→21:02)
[2022-04-23] MEDS: GABAPENTIN 300 MG CAP PO SCH ×3 (09:03→21:02)
[2022-04-23] MEDS: FAMOTIDINE 20 MG TAB PO SCH ×2 (09:03→21:02)
[2022-04-23] MEDS: busPIRone 15 MG TAB PO SCH ×2 (09:03→21:02)
[2022-04-23] MEDS: FLUTICASONE/VILANTEROL 200/25MCG 14 PUFFS/INHALER INH SCH (09:04)
[2022-04-23] MEDS: NEOMYCIN/POLYMYX/HYDROCORT OT SOLN 10 ML BTL OT SCH ×3 (09:04→21:02)
[2022-04-23] MEDS: BUPRENORPHINE/NALOXONE 8/2 MG TAB SL SCH ×3 (09:04→21:01)
[2022-04-23 09:34] LABS: Estimated Average Glucose 117 mg/dl; Hemoglobin A1C 5.7 % (4.5-5.6)
[2022-04-23] MEDS ORDERED: VANCOMYCIN LEVEL ONE (11:00)
--- NOTE | 2022-04-23 11:48 | Hospitalist Progress Note ---
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 - supportive care (3) Tricuspid valve mass: Plan: - noted on last admission after patient left AMA - was planning on STEVEN but patient left - TTE without evidence of endocarditis - dc broad spectrum abx (4) Multifocal pneumonia: Plan: - noted on last admission - TTE as above - blood cultures NGTD - could be related to influenza pneumonia ths time - will need follow up CT scan at some point, possibly this admission - started on vancomycin and cefepime - deescalate to CAP coverage with levofloxacin and doxycycline given recent hospitalization - will follow cultures and discontinue in 48 hours if negative (5) Sepsis: Plan: - likely due to influenza infection - Tamiflu and supportive care as above - blood cultures NGTD - vancomycin and cefepime - see abx as above - TTE negative for vegtation (6) CHF (congestive heart failure): Plan: - does not appear to be in exacerbation - holding diuretics in setting of sepsis - will monitor fluid status - restart diuretics and BP meds as tolerated (7) HTN (hypertension): Plan: - BP well controlled at this time - holding BP meds in the setting of sepsis - restart as tolerated (8) HLD (hyperlipidemia): Plan: - continue statin Plan DVT ppx: lovenox Code Status: Full Code Dispo: PCU - downgrade to med/surg Dylon Aldrich MD [facility] Medicine Admission and Anticipated Discharge Date Admission Date: April 21, 2022 Subjective Patient with DM2, chronic hypoxemic respiratory failure on home O2 NC 2-4L in setting of moderate persistent asthma, HFrEF (EF 30% 02/2022), HLD, HTN, AV stenosis, CAD s/p stenting, chronic hep C, CKD, anemai, h/o OUD on suboxone, tobacco use disorder presented with shortness of breath, found to have Influenza infection. Started on IVF and Tamiflu. On home O2, being supported here with O2 NC. Patient feeling much better today but still with some FINN. Denies chest pain, n/v/d, abdominal pain, dysuria. Appetite improved. Review of Systems Review of Systems: All systems reviewed & are unremarkable except as noted in Subjective Physical Exam Physical Exam: GENERAL: The patient is of moderate build, not in acute distress. HEENT: Pupils equal, round and reactive to light. Oral mucosa moist. NECK: No JVD, no neck masses. CARDIOVASCULAR: S1 and S2 heard. RRR. No obvious murmurs heard. RESPIRATORY SYSTEM: Normal AP diameter. No accessory muscle use. CTAB. No wheezing or crackles. ABDOMEN: Soft, bowel sounds present, nontender, no distention. CENTRAL NERVOUS SYSTEM: Alert and oriented. Speech is clear. No facial droops. Able to give history. Obeys simple commands. Insight is okay. Moves extremities. EXTREMITIES: Bilateral lower extremities mild pedal edema present, no erythema seen. Results & Data Results & Data ([facility]) Vital Signs (Past 12 Hours) Vital Signs Temp Pulse Pulse Resp BP BP Pulse Ox 04/23/22 11:09 90 16 98 04/23/22 11:00 36.6 C 89 18 131/78 100 04/23/22 07:00 87 04/23/22 07:31 36.7 C 91 H 16 128/76 100 04/23/22 05:53 96 H 18 98 04/23/22 03:17 36.7 C 93 H 18 108/69 98 04/23/22 00:00 36.5 C 93 H 18 122/79 99 O2 Del Method O2 Flow Rate FiO2 04/23/22 11:09 Nasal Cannula 3 04/23/22 11:00 Nasal Cannula 2 04/23/22 07:00 04/23/22 07:31 Room Air 04/23/22 05:53 Nasal Cannula 3 04/23/22 03:17 Nasal Cannula 3 04/23/22 00:00 Nasal Cannula 4 Diagnostic Findings Laboratory Results WBC 12.64 K/ul (4.8-10.8) H 04/23/22 07:13 RBC 3.24 M/uL (3.93-5.22) L 04/23/22 07:13 Hgb 8.8 g/dl (12.0-16.0) L 04/23/22 07:13 Hct 27.7 % (34.1-44.9) L 04/23/22 07:13 MCV 85.5 fL (80.0-100.0) 04/23/22 07:13 MCH 27.2 pg (25.0-34.0) 04/23/22 07:13 MCHC 31.8 g/dL (32.0-36.0) L 04/23/22 07:13 RDW Std Deviation 51.4 fL (36.4-46.3) H 04/23/22 07:13 RDW Coeff of Hannah 16.3 % (11.5-14.5) H 04/23/22 07:13 Plt Count 306 K/uL (130-400) 04/23/22 07:13 MPV 10.2 fL (9.4-12.3) 04/23/22 07:13 Immature Gran % (Auto) 0.7 % 04/22/22 06:10 Neut % (Auto) 87.2 % 04/22/22 06:10 Lymph % (Auto) 8.5 % 04/22/22 06:10 [place] % (Auto) 3.4 % 04/22/22 06:10 Eos % (Auto) 0.0 % 04/22/22 06:10 Baso % (Auto) 0.2 % 04/22/22 06:10 Neut # (Auto) 14.81 K/uL (1.4-6.5) H 04/22/22 06:10 Lymph # (Auto) 1.44 K/uL (1.2-3.4) 04/22/22 06:10 [place] # (Auto) 0.58 K/uL (0.24-0.82) 04/22/22 06:10 Eos # (Auto) 0.00 K/uL (0-0.50) 04/22/22 06:10 Baso # (Auto) 0.03 K/uL (0-0.2) 04/22/22 06:10 Immature Gran # (Auto) 0.12 K/uL (0.00-0.02) H 04/22/22 06:10 PT 10.9 Seconds (9.0-12.0) 04/23/22 07:13 INR 1.0 (0.9-1.1) 04/23/22 07:13 VBG pH 7.43 (7.36-7.41) H 04/21/22 21:35 VBG pCO2 32 mmHg (38-50) L 04/21/22 21:35 VBG pO2 70 mmHg 04/21/22 21:35 VBG HCO3 21 mmol/L 04/21/22 21:35 VBG O2 Saturation 96.0 % 04/21/22 21:35 VBG Base Excess -2.3 mEq/L 04/21/22 21:35 Sodium 134 mmol/L (136-145) L 04/23/22 07:13 Potassium 4.5 mmol/L (3.5-5.1) 04/23/22 07:13 Chloride 104 mmol/L (98-107) 04/23/22 07:13 Carbon Dioxide 23 mmol/L (21-32) 04/23/22 07:13 Anion Gap 7 (3-11) 04/23/22 07:13 BUN 22 mg/dl (6-23) 04/23/22 07:13 Creatinine 1.08 mg/dl (0.6-1.2) 04/23/22 07:13 Est Cr Clr Drug Dosing 66.8 ml/min 04/23/22 07:13 Est GFR ( Amer) 72.3 ml/min 04/23/22 07:13 Est GFR (Non-Af Amer) 62.4 ml/min 04/23/22 07:13 BUN/Creatinine Ratio 20.4 (10-20) H 04/23/22 07:13 Glucose 125 mg/dl (70-99(Fasting)) H 04/23/22 07:13 POC Glucose 138 mg/dl (70-99) H 04/23/22 07:29 Estimat Average Glucose 117 mg/dl 04/22/22 06:10 Hemoglobin A1c 5.7 % (4.5-5.6) H 04/22/22 06:10 Calcium 8.5 mg/dl (8.5-10.1) 04/23/22 07:13 Phosphorus 3.0 mg/dl (2.5-4.9) 04/23/22 07:13 Magnesium 2.4 mg/dl (1.7-2.4) 04/23/22 07:13 Total Bilirubin 0.3 mg/dl (0.2-1.0) 04/23/22 07:13 AST 29 U/L (13-39) 04/23/22 07:13 ALT 20 U/L (7-52) 04/23/22 07:13 Alkaline Phosphatase 86 U/L (34-104) 04/23/22 07:13 Troponin I High Sens 5.6 pg/ml (0-14) 04/22/22 06:10 Total Protein 7.0 gm/dl (6.0-8.3) 04/23/22 07:13 Albumin 3.6 gm/dl (3.4-5.0) 04/23/22 07:13 Globulin 3.4 gm/dl (2.5-4.0) 04/23/22 07:13 Albumin/Globulin Ratio 1.1 (0.9-2) 04/23/22 07:13 Lipase 6 U/L (11-82) L 04/21/22 20:19 Nasal Screen MRSA (PCR) Negative (Negative) 04/22/22 09:20 SARS-CoV-2 (PCR) NEGATIVE (Negative) 04/21/22 20:19 Influenza Type A (PCR) Positive (Neg) A* 04/21/22 20:19 Influenza Type B (PCR) Negative (Neg) 04/21/22 20:19 RSV (RT-PCR) Negative (Neg) 04/21/22 20:19 Impressions Chest X-Ray 04/21/22 20:08 XR chest 1V portable CLINICAL HISTORY: Chest pain, nonspecific TECHNIQUE: Single frontal radiograph of the chest was obtained. Comparison: Comparison is made to chest radiograph 03/08/2022 FINDINGS: No lines and tubes are seen. The cardiomediastinal silhouette is normal. Worsening airspace opacities are seen in the right greater than left lower lung. No evidence of pleural effusion or pneumothorax. IMPRESSION: Worsening airspace opacities in the lower lungs which may represent multifocal pneumonia. ACT 112: Negative or not required by law. Electronically signed by: Moi Ring M.D. 04/21/2022 9:09 PM Medications Administered Current Inpatient Medications Acetaminophen (Acetaminophen 325 Mg Tab) 650 mg PO Q4H PRN PRN Reason: Pain or Fever Stop: 05/22/22 00:08 Albuterol (Albuterol Hfa 8 Gm Inhaler) 2 puffs INH Q4 PRN PRN Reason: Shortness Of Breath Or Wheezin Stop: 05/22/22 00:08 Aspirin (Aspirin 81 Mg Ectab) 81 mg PO DAILY [facility] Stop: 05/22/22 08:59 Last Admin: 04/23/22 09:00 Dose: 81 mg Atorvastatin Calcium (Atorvastatin 40 Mg Tab) 80 mg PO DAILY [facility] Stop: 05/22/22 08:59 Last Admin: 04/23/22 09:02 Dose: 80 mg Benzonatate (Benzonatate 100 Mg Capsule) 100 mg PO TID PRN PRN Reason: Cough Stop: 05/22/22 00:08 Buprenorphine/Naloxone (Buprenorphine/Naloxone 8/2 Mg Tab) 0.5 tab SL TID [facility] Stop: 05/22/22 08:59 Last Admin: 04/23/22 09:04 Dose: 0.5 tab Buspirone HCl (Buspirone 15 Mg Tab) 15 mg PO BID [facility] Stop: 05/22/22 08:59 Last Admin: 04/23/22 09:03 Dose: 15 mg Clopidogrel Bisulfate (Clopidogrel Bisulfate 75 Mg Tab) 75 mg PO DAILY [facility] Stop: 05/22/22 08:59 Last Admin: 04/23/22 09:00 Dose: 75 mg Cyclobenzaprine HCl (Cyclobenzaprine Hcl 10 Mg Tab) 10 mg PO BID [facility] Stop: 05/22/22 08:59 Last Admin: 04/23/22 09:03 Dose: 10 mg Dextrose (Dextrose 50% 50 Ml Syringe) 25 - 50 ml IV UD PRN; Protocol PRN Reason: Hypoglycemia Protocol Stop: 05/22/22 00:08 Doxycycline Hyclate (Doxycycline Hyclate 100 Mg Cap) 100 mg PO BID [facility] Stop: 04/29/22 00:08 Last Admin: 04/23/22 09:03 Dose: 100 mg Enoxaparin Sodium (Enoxaparin Inj 40 Mg/0.4 Ml Syr) 40 mg SQ HS [facility] Stop: 05/22/22 00:08 Last Admin: 04/22/22 21:18 Dose: 40 mg Escitalopram Oxalate (Escitalopram Oxalate 10 Mg Tab) 10 mg PO DAILY [facility] Stop: 05/22/22 08:59 Last Admin: 04/23/22 09:01 Dose: 10 mg Escitalopram Oxalate (Escitalopram Oxalate 20 Mg Tab) 20 mg PO DAILY [facility] Stop: 05/22/22 08:59 Last Admin: 04/23/22 09:01 Dose: 20 mg Famotidine (Famotidine 20 Mg Tab) 20 mg PO BID [facility] Stop: 05/22/22 08:59 Last Admin: 04/23/22 09:03 Dose: 20 mg Fluticasone/Vilanterol (Fluticasone/Vilanterol 200/25mcg 14 Puffs/Inhaler) 1 puffs INH DAILY [facility] Stop: 05/22/22 08:59 Last Admin: 04/23/22 09:04 Dose: 1 puffs Gabapentin (Gabapentin 300 Mg Cap) 300 mg PO TID [facility] Stop: 05/22/22 08:59 Last Admin: 04/23/22 09:03 Dose: 300 mg Glucagon (Glucagon For Inj 1 Mg Vial) 1 mg SQ UD PRN; Protocol PRN Reason: Hypoglycemia Protocol Stop: 05/22/22 00:08 Glucose (Glucose 40% Gel 15 Gm Tube) 15 - 30 gm PO UD PRN; Protocol PRN Reason: Hypoglycemia Protocol Stop: 05/22/22 00:08 Glucose (Glucose 10 Tab/Tube) 4 - 8 tab PO UD PRN; Protocol PRN Reason: Hypoglycemia Treatment Stop: 05/22/22 00:08 Cefepime HCl 2,000 mg/ Syringe 20 mls @ 5 mls/min IV Q8H [facility]; Protocol Stop: 04/29/22 05:59 Last Admin: 04/23/22 05:42 Dose: 5 mls/min Methylprednisolone 40 mg/ (Syringe) 0.64 mls @ 1.5 mls/min IV Q12H [facility] Stop: 05/22/22 08:59 Last Admin: 04/23/22 08:59 Dose: 1.5 mls/min Vancomycin HCl 1,500 mg/ (Sodium Chloride) 530 mls @ 200 mls/hr IV Q24H [facility]; Protocol Stop: 04/29/22 11:59 Last Infusion: 04/22/22 15:28 Dose: Infused Insulin Aspart (Insulin Aspart Per Unit) 0 units SC ACHS [facility] Stop: 05/22/22 16:29 Last Admin: 04/23/22 07:57 Dose: 3 units Ipratropium [place] (Ipratropium [place] Neb Soln 0.02% 2.5 Ml Vial) 0.5 mg INH QIDR [facility] Stop: 05/22/22 06:59 Last Admin: 04/23/22 11:08 Dose: 0.5 mg Levalbuterol HCl (Levalbuterol 1.25mg/0.5ml Neb) 1.25 mg INH QIDR [facility] Stop: 05/22/22 06:59 Last Admin: 04/23/22 11:08 Dose: 1.25 mg Levetiracetam (Levetiracetam 500 Mg Tab) 500 mg PO BID [facility] Stop: 05/22/22 00:08 Last Admin: 04/23/22 09:03 Dose: 500 mg Lisinopril (Lisinopril 2.5 Mg Tab) 2.5 mg PO DAILY [facility] Stop: 05/22/22 08:59 Loratadine (Loratadine 10 Mg Tab) 10 mg PO DAILY [facility] Stop: 05/22/22 08:59 Last Admin: 04/23/22 09:01 Dose: 10 mg Metoprolol Succinate (Metoprolol Succ 25mg Ext Rel Tab) 25 mg PO DAILY [facility] Stop: 05/22/22 08:59 Last Admin: 04/23/22 09:01 Dose: 25 mg Miscellaneous (Carbohydrates For Hypoglycemia ) 15 - 30 gm PO UD PRN PRN Reason: Hypoglycemia Protocol Stop: 05/22/22 00:08 Miscellaneous Information (Vancomycin Consult Active) 1 each N/A UD PRN PRN Reason: Consult Stop: 05/21/22 22:27 Neomycin/Polymyxin/Hydrocortisone (Neomycin/Polymyx/Hydrocort Ot Soln 10 Ml Btl) 4 drops OT TID [facility] Stop: 05/22/22 08:59 Last Admin: 04/23/22 09:04 Dose: Not Given Nitroglycerin (Nitroglycerin Sl 0.4 Mg/Tab Tab) 0.4 mg SL UD PRN PRN Reason: Chest Pain Stop: 05/22/22 00:08 Oseltamivir Phosphate (Oseltamivir Phosphate 75 Mg Cap) 75 mg PO BID [facility]; Protocol Stop: 04/27/22 00:59 Last Admin: 04/23/22 09:00 Dose: 75 mg Pantoprazole Sodium (Pantoprazole 40 Mg Tab) 40 mg PO DAILY [facility] Stop: 05/22/22 08:59 Last Admin: 12/26/22 09:01 Dose: 40 mg Polyethylene Glycol (Polyethylene (Miralax) 17 Gm Pack) 17 gm PO DAILY PRN PRN Reason: Constipation Stop: 05/22/22 00:08 Potassium Chloride (Potassium Chloride Crtab 20 Meq Tabcr) 20 meq PO DAILY [facility] Stop: 05/22/22 08:59 Spironolactone (Spironolactone 12.5 Mg Tab) 12.5 mg PO QAM [facility] Stop: 05/22/22 08:59 Last Admin: 04/22/22 08:36 Dose: 12.5 mg Topiramate (Topiramate 25 Mg Tab) 25 mg PO BID [facility] Stop: 05/22/22 00:08 Last Admin: 04/23/22 09:02 Dose: 25 mg Torsemide (Torsemide 20 Mg Tab) 20 mg PO BID17 [facility] Stop: 05/22/22 08:59 Trazodone HCl (Trazodone Hcl 50 Mg Tab) 75 mg PO HS [facility] Stop: 05/22/22 20:59 Last Admin: 04/22/22 21:21 Dose: 75 mg (1) CHF (congestive heart failure) Heart failure chronicity: acute Heart failure type: unspecified Qualified Code(s): I50.9 - Heart failure, unspecified
--- NOTE | 2022-04-23 12:25 | Electrocardiogram Report ---
Test Reason : Blood Pressure : / mmHG Vent. Rate : 096 BPM Atrial Rate : 096 BPM P-R Int : 130 ms QRS Dur : 082 ms QT Int : 370 ms P-R-T Axes : 056 048 045 degrees QTc Int : 467 ms Poor data quality, interpretation may be adversely affected Normal sinus rhythm Normal ECG When compared with ECG of 21-APR-2022 19:59, Nonspecific T wave abnormality no longer evident in Inferior leads Nonspecific T wave abnormality no longer evident in Lateral leads Confirmed by Carlos Goodman [id number]) on 04/23/2022 12:25:05 PM Referred By: REFERRED SELF Confirmed By:Carlos Goodman
[2022-04-23] MEDS: VANCOMYCIN HCL 1,500 MG in SODIUM CHLORIDE 0.9% 500 ML IV SCH (12:29)
[2022-04-23] MEDS: levoFLOXacin 750 MG TAB PO SCH (12:42)
[2022-04-23] MEDS: ENOXAPARIN INJ 40 MG/0.4 ML SYR SQ SCH (21:01)
[2022-04-23] MEDS: traZODone HCL 50 MG TAB PO SCH (21:03)
[2022-04-24] MEDS: IPRATROPIUM BROMIDE NEB SOLN 0.02% 2.5 ML VIAL INH SCH ×3 (06:45→14:53)
[2022-04-24] MEDS: LEVALBUTEROL 1.25MG/0.5ML NEB INH SCH ×3 (06:45→14:53)
[2022-04-24] MEDS: INSULIN ASPART PER UNIT SC SCH ×3 (08:41→17:31)
[2022-04-24 08:43] LABS: Hematocrit (blood only) 27.8 % (34.1-44.9); Hemoglobin 8.9 g/dl (12.0-16.0); Mean Corpuscular Hemoglobin 27.4 pg (25.0-34.0); Mean Corpuscular Volume 85.5 fL (80.0-100.0); Mean Platelet Volume 10.6 fL (9.4-12.3); Platelet Count 304 K/uL (130-400); RDW Coefficient of Variation 16.4 % (11.5-14.5); RDW Standard Deviation 51.6 fL (36.4-46.3); Red Blood Count 3.25 M/uL (3.93-5.22); White Blood Count 18.67 K/ul (4.8-10.8)
[2022-04-24] MEDS: FLUTICASONE/VILANTEROL 200/25MCG 14 PUFFS/INHALER INH SCH (08:45)
[2022-04-24] MEDS: SPIRONOLACTONE 12.5 MG TAB PO SCH (08:46)
[2022-04-24] MEDS: ESCITALOPRAM OXALATE 10 MG TAB PO SCH (08:48)
[2022-04-24] MEDS: levETIRAcetam 500 MG TAB PO SCH (08:48)
[2022-04-24] MEDS: LORATADINE 10 MG TAB PO SCH (08:49)
[2022-04-24] MEDS: FAMOTIDINE 20 MG TAB PO SCH (08:49)
[2022-04-24] MEDS: ATORVASTATIN 40 MG TAB PO SCH (08:49)
[2022-04-24] MEDS: METOPROLOL SUCC 25MG EXT REL TAB PO SCH (08:49)
[2022-04-24] MEDS: GABAPENTIN 300 MG CAP PO SCH ×2 (08:49→15:04)
[2022-04-24] MEDS: CLOPIDOGREL BISULFATE 75 MG TAB PO SCH (08:49)
[2022-04-24] MEDS: PANTOprazole 40 MG TAB PO SCH (08:50)
[2022-04-24] MEDS: CYCLOBENZAPRINE HCL 10 MG TAB PO SCH (08:50)
[2022-04-24] MEDS: ESCITALOPRAM OXALATE 20 MG TAB PO SCH (08:50)
[2022-04-24] MEDS: TOPIRAMATE 25 MG TAB PO SCH (08:50)
[2022-04-24] MEDS: levoFLOXacin 750 MG TAB PO SCH (08:50)
[2022-04-24] MEDS: OSELTAMIVIR PHOSPHATE 75 MG CAP PO SCH (08:50)
[2022-04-24] MEDS: busPIRone 15 MG TAB PO SCH (08:50)
[2022-04-24] MEDS: ASPIRIN 81 MG ECTAB PO SCH (08:50)
[2022-04-24] MEDS: methylPREDNISolone 40 MG in SYRINGE 0 ML IV SCH (08:51)
[2022-04-24] MEDS: NEOMYCIN/POLYMYX/HYDROCORT OT SOLN 10 ML BTL OT SCH ×2 (08:56→15:04)
[2022-04-24 09:02] LABS: BUN Creatinine Ratio 19.3 (10-20); Calcium 9.2 mg/dl (8.5-10.1); Creatinine Clr Calc Pharmacy 60.6 ml/min; Est GFR (African American) 64.3 ml/min; Est GFR (Non-African American) 55.5 ml/min; Magnesium 2.1 mg/dl (1.7-2.4); Phosphorus 2.7 mg/dl (2.5-4.9)
[2022-04-24] MEDS: BUPRENORPHINE/NALOXONE 8/2 MG TAB SL SCH ×2 (09:15→14:14)
--- NOTE | 2022-04-24 12:27 | Discharge Summary ---
Date of Service April 24, 2022 Admission HPI Per Admitting Provider This is a 42-year-old female with past medical history significant for type 2 diabetes, diabetic peripheral neuropathy, chronic hypoxemic respiratory failure, chronic systolic and diastolic CHF, history of moderate persistent asthma, hyperlipidemia, hypertension, non-rheumatic aortic valve stenosis, CAD s/p stent, questionable tricuspid valve vegetation,chronic hepatitis C, vitamin D deficiency, recurrent UTIs, ureteral dilatation, right side, chronic kidney disease stage III, lumbar disc disease, iron deficiency anemia, history of narcotic addiction, on Suboxone, depression, tobacco use disorder, presents wi th shortness of breath since yesterday. The patient was somewhat tachycardic in the ER. Temperature spike of 37.8, saturating 93% on 4 L. The patient able to talk and give all history. Influenza A PCR came back positive. Chest x-ray showing worsening airspace opacity in the lower lungs representing multifocal pneumonia. The patient was in the hospital on 03/03/2022 with acute respiratory failure, multifocal pneumonia. She was intubated at that time. Sputum culture grew Staphylococcus intermedius. There was a question of endocarditis of tricuspid valve on echo, but negative blood cultures. As pr progress notes at that time [facility] [place] and they did not feel any vegetation and even if so thought she was not a candidate for AngioVac procedure.Also there was a plan for transthoracic echocardiogram, but it seems like the patient signed out AMA before it was done . The patient sometimes complains of chest tightness, cough, brining up phlegm, feeling palpitations,denies any fever at home. Has headache, some neck pain, but no neck stiffness. Has chronic back issues, ambulating without support, sometimes uses a cane. No nausea, no vomiting, no abdominal pain. Normal bowel and bladder movements. Admission Exam Per Admitting Provider GENERAL: The patient is of moderate build, not in acute distress. VITAL SIGNS: Temperature 37.8, pulse 140, respiratory rate 20, blood pressure 102/54, oxygen 93% on 4 L. HEENT: Pupils equal, round and reactive to light. Oral mucosa moist. NECK: No JVD, no neck masses. CARDIOVASCULAR: S1 and S2 heard. Tachycardia. No obvious murmurs heard. RESPIRATORY SYSTEM: Normal AP diameter. No accessory muscle use. Mild bilateral rhonchi heard. No wheezing or crackles. ABDOMEN: Soft, bowel sounds present, nontender, no distention. CENTRAL NERVOUS SYSTEM: Alert and oriented. Speech is clear. No facial droops. Able to give history. Obeys simple commands. Insight is okay. Moves extremities. EXTREMITIES: Bilateral lower extremities mild pedal edema present, no erythema seen. Principal Diagnosis influenza pneumonia Discharge Exam GENERAL: The patient is of moderate build, not in acute distress. HEENT: Pupils equal, round and reactive to light. Oral mucosa moist. NECK: No JVD, no neck masses. CARDIOVASCULAR: S1 and S2 heard. RRR. No obvious murmurs heard. RESPIRATORY SYSTEM: Normal AP diameter. No accessory muscle use. CTAB with some coarse upper air ways sounds occasionally, No wheezing or crackles. ABDOMEN: Soft, bowel sounds present, nontender, no distention. CENTRAL NERVOUS SYSTEM: Alert and oriented. Speech is clear. No facial droops. Able to give history. Obeys simple commands. Insight is okay. Moves extremities. EXTREMITIES: Bilateral lower extremities mild pedal edema present, no erythema seen. Discharge Data Allergies Allergy/AdvReac Type Severity Reaction Status Date / Time lidocaine Allergy Intermediate HIVES Verified 07/10/21 21:33 procaine Allergy Intermediate HIVES Verified 07/10/21 21:33 Penicillins Allergy Mild HAD NO Verified 07/10/21 21:33 PROBLEM WITH ZOSYN strawberry Allergy Mild HIVES Verified 07/10/21 21:33 cephalexin AdvReac Intermediate YEAST Verified 07/10/21 21:33 INFECTIONS tramadol AdvReac Intermediate SEIZURES Verified 07/10/21 21:33 azithromycin AdvReac Mild STOMACH Verified 07/10/21 21:33 PAIN Covid vaccine AdvReac Severe stopped Uncoded 04/21/22 23:21 breathing next day Consultations 04/21/22 21:22 ED Decision to Admit Stat 04/22/22 08:00 Consult Cardiology Routine Hospital Course (1) Acute exacerbation of chronic obstructive pulmonary disease: - in the setting of influenza A infection - on home O2 at 2-4L NC baseline - increase O2 as needed, wean as tolerated - will continue steroids for 5 days - change to PO tomorrow 04/24/2022 - continue Tamiflu for 5 days - will give 5 days of abx for possible superimposed bacterial pneumonia - IVF as needed - tolerating diet well - supportive care - ok for discharge with 5 days of Tamiflu and steroids as well as levofloxacin for total of 5 days - telemetry monitoring (2) Influenza A: - Tamiflu as above as symptoms started about 2 days [employer] - supportive care (3) Multifocal pneumonia: - noted on last admission - TTE as above - blood cultures NGTD - could be related to influenza pneumonia ths time - will need follow up CT scan at some point, possibly this admission - started on vancomycin and cefepime - deescalate to CAP coverage with levofloxacin and doxycycline given recent hospitalization - will follow cultures and discontinue in 48 hours if negative (4) CHF (congestive heart failure): - does not appear to be in exacerbation - holding diuretics in setting of sepsis - will monitor fluid status - restart diuretics and BP meds as tolerated (5) HTN (hypertension): - BP well controlled at this time - holding BP meds in the setting of sepsis - restart as tolerated (6) HLD (hyperlipidemia): - continue statin Plan DVT ppx: lovenox Code Status: Full Code Dispo: PCU - downgrade to med/surg Dylon Aldrich MD [facility] Medicine Total Time Total Time Spent Total Time Spent (In Minutes): 25 Total Time Includes: Examination of the Patient, Discharge Planning and Medication Reconciliation Discharge Plan Discharge Items Patient Disposition: Home - Self-Care Reason For Visit: SOB Discharge Diagnosis: Influenza pneumonia Activity: Resume your previous activity Non-emergency contact: 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 You were started on Tamiflu, antibiotics, and steroids. You improve and were back to baseline. You should finish a total of five days of antibiotics, Tamiflu, and steroids, last day should be 04/26/2022. Please follow up with your primary care doctor on discharge. Pending Studies at Discharge: No Stand-Alone Forms: [employer], Smoking Cessation Medications and DC Order Prescriptions: New levofloxacin 750 mg Tablet 750 mg PO DAILY@1100 2 Days Qty: 2 0RF oseltamivir [Tamiflu] 75 mg Capsule 75 mg PO BID Qty: 5 0RF prednisone 20 mg tablet 40 mg PO DAILY 3 Days Qty: 6 0RF Continued dseadacz-hyxhhsrei-DX 3.5-10,000-1 mg/mL-unit/mL-% Solution 4 drp OTIC (EAR) TID PRN (Reason: ..) aspirin 81 mg Tablet,Delayed Release (Dr/Ec) 81 mg PO DAILY famotidine 20 mg Tablet 20 mg PO BID meclizine 25 mg tablet 25 mg PO TID PRN (Reason: Dizziness) nitroglycerin 0.4 mg Tablet, Sublingual 0.4 mg sublingual DAILY PRN (Reason: Chest Pain) gabapentin 300 mg capsule 300 mg PO TID escitalopram oxalate 10 mg Tablet 10 mg PO DAILY fluticasone furoate-vilanterol [Breo Ellipta] 200-25 mcg/dose Blister With Device 1 inh INHALATION DAILY PRN (Reason: Shortness Of Breath Or Wheezing) cyclobenzaprine 10 mg tablet 10 mg PO BID atorvastatin 80 mg tablet 80 mg PO DAILY torsemide 20 mg tablet 20 mg PO DAILY PRN (Reason: Edema) Rx Instructions: instructions per Patient albuterol sulfate 2.5 mg /3 mL (0.083 %) solution for nebulization 2.5 mg inhalation Q4 PRN (Reason: WHEEZE/COUGH) trazodone 50 mg tablet 75 mg PO HS polyethylene glycol 3350 [Miralax] 17 gram Powder In Packet 17 g PO DAILY PRN (Reason: Constipation) levetiracetam 500 mg tablet 500 mg PO BID glipizide 10 mg Tablet 10 mg PO DAILY clopidogrel 75 mg tablet 75 mg PO DAILY spironolactone 25 mg tablet 12.5 mg PO QAM meloxicam 7.5 mg tablet 7.5 mg PO DAILY potassium chloride [Klor-Con M20] 20 mEq tablet,ER particles/crystals 20 meq PO DAILY metformin 1,000 mg tablet 1,000 mg PO BID lisinopril 5 mg tablet 2.5 mg PO DAILY metoprolol succinate 25 mg tablet extended release 24 hr 25 mg PO DAILY albuterol sulfate 90 mcg/actuation HFA aerosol inhaler 2 puff INHALATION Q4 PRN (Reason: Shortness Of Breath Or Wheezing) medroxyprogesterone 150 mg/mL suspension 150 mg IM .Q3MO buspirone 15 mg Tablet 15 mg PO BID escitalopram oxalate 20 mg tablet 20 mg PO DAILY buprenorphine-naloxone 8-2 mg tablet, sublingual 0.5 tab SUBLINGUAL TID omeprazole 20 mg Tablet,Delayed Release (Dr/Ec) 20 mg PO DAILY Discharge Orders: Discharge Order (Routine); Ordered 04/24/22 Ordered By: Dylon Aldrich Admission Data Admit Date/Time: 04/21/22 22:25 Attending Provider: Dylon Aldrich Admit Provider: Charles Friedman Primary Care Provider: Irvin Iverson Other Providers: Charles Friedman ; Sandeep Hall ; Wesley Rutherford ; Paresh Gonzales ; Max Gil ; Ryan Robertson ; Dale Sierra ; Niru Mixon ; Gloria Casiano ; Laina Greer ; Jeffrey Barbour Other Interventions: Discharge Summary Assessment (RN) Last Done: 04/24/22 11:45
== END 2022-04-24 17:32 | disposition home or self-care (01) | DRG 871 ==
LOC: ED 19:38 → 2S 22:25

== ENCOUNTER 2022-12-04 15:15 | Inpatient (IN) ==
[~2022-12-04 15:15] MED LIST changes: -ASPI81TA28 PO; -ATOR-26 PO; -ATV5X PO; -CLOP1TAB15 PO; -DFL100 PO; -GABA600T PO; +KETAMINE HCL INJ 50 MG/ML 10 ML VIAL IV ONE; -LISI-461 PO; -METF1TAB53 PO; -NTRGSL/4 UT; -NXM/40 PO; -PRD10 PO; +RAPID SEQUENCE INDUCTION BAG ONE; +ROCURONIUM BROMIDE 10 MG/ML 5 ML VIAL IV ONE; -SERT1TAB92 PO; -TRAZ1TAB52 PO; -VNTHFA/IN INH
[2022-12-04] MEDS ORDERED: ALBUT/IPRATROP 3MG/0.5MG NEB 3 ML VIAL NEB ONE (15:21)
[2022-12-04] MEDS ORDERED: ALBUT/IPRATROP 3MG/0.5MG NEB 3 ML VIAL ONE (15:21)
[2022-12-04] MEDS ORDERED: SODIUM CHLORIDE 0.9% 500 ML IV ONE (15:25)
--- NOTE | 2022-12-04 15:25 | Emergency Department Note ---
Impression & Plan Respiratory failure, Sepsis, Pneumonia, Acute hypotension, Hypoxia ED Provider Note NAME: ROGER WEEKS AGE: 42 SEX: F : 1980 ARRIVES VIA: Ambulance INFORMANT: Patient ED PROVIDER(S): Yusuf Robertson DO CHIEF COMPLAINT: cough, congestion and runny nose HPI: Patient is a 42-year-old female with a past medical history type 2 diabetes, diabetic peripheral neuropathy, chronic hypoxemic respiratory failure, chronic systolic and diastolic CHF, history of moderate persistent asthma, hyperlipidemia, hypertension, non-rheumatic aortic valve stenosis, CAD s/p st ent, questionable tricuspid valve vegetation,chronic hepatitis C, vitamin D deficiency, recurrent UTIs, chronic kidney disease stage III, lumbar disc disease, iron deficiency anemia, history of narcotic addiction, on Suboxone, depression, tobacco use disorder who presents to the ER for shortness of breath which started this morning and has significantly worsened. She admits to cough, congestion, and runny nose which has been present since this morning as well. She denies any chest pain. No belly pain, nausea, vomiting, or diarrhea. She admits to chronic swelling in her lower extremities. No dysuria, urgency, or frequency. No other exacerbating or remitting factors. She notes that she wears 3 L nasal cannula only at night. She was found down by EMS confused not oriented. They placed her on nonrebreather and she eventually woke up and mentation improved. PAST MEDICAL HISTORY:See Below PAST SURGICAL HISTORY:See Below FAMILY HISTORY:See Below SOCIAL HISTORY:See Below HOME MEDICATIONS:See Below ALLERGIES:See Below VITALS:See Below PHYSICAL EXAMINATION: GENERAL: Sitting up in bed, alert, ill-appearing, moderate distress on 15 L nasal cannula EYE EXAM: normal conjunctiva. OROPHARYNX: no exudate, no erythema, lips, buccal mucosa, and tongue normal and mucous membranes are moist NECK: supple, no nuchal rigidity, no adenopathy, non-tender LUNGS: Diffuse wheezing bilaterally. Normal chest wall mechanics HEART: +MAXIME, S1 normal and S2 normal ABDOMEN: abdomen soft, non-tender, normo-active bowel sounds, no masses, no rebound or guarding. UPPER EXTREMITIES: upper extremities are grossly normal. LOWER EXTREMITIES: Pitting edema in the lower extremities NEURO EXAM: Normal sensorium, cranial nerves II-XII grossly intact, normal speech, no gross weakness of arms, no gross weakness of legs. MEDICAL DECISION MAKING: Patient is a 42-year-old female with extensive past medical history that presents to the ER for above-stated complaint. IV was established blood work is obtained. External records reviewed. Labs show leukocytosis of 30,000. Mild anemia at 9. BMP with a CO2 of 16 and a creatinine in the twos up from baseline of 1. Lactate was significantly elevated at 4. Troponin was elevated at 800. proBNP elevated at 230. Pro-Eduard 1.9. UA was clean. Tox was negative. Viral panel was negative. Patient was placed on 15 L nasal cannula and given hour- long neb treatment and given steroids initially upon arrival. Chest x-ray was obtained immediately. I was concerned for failure as patient did have bilateral pitting edema. She also has extensive cardiac history and consequently I contacted Dr. Marlow who is on-call for cardiology. We were able to get a formal echo and upon our review at bedside she did have collapse of the IVC. At this p oint it was felt that this was more/secondary to infectious as opposed to pulmonary edema. Patient was given IV fluids. Patient began to become very tired. She is dropped her sats to 82% on 15 L. I had a conversation with the patient at bedside. She will wants to be intubated. She does not want to do BiPAP or CPAP as she notes this is claustrophobic to her. Patient was electively intubated at this time as she was clinically deteriorating and her pulse ox was dropping. Chest x-ray confirmed ET tube placement. She was taken to obtain a CT of the chest that she could tolerate it now laying flat. Contrast was not used secondary to her AJIT. Did show bilateral infiltrates. Patient was covered with IV antibiotics. Updated bedside. Discussed with the hospitalist Judith diane for further evaluation. Following intubation patient was placed on Versed and fentanyl drips but due to difficulty obtaining the Versed she was given push doses until getting into the unit. Patient was also initially started on a low-dose Levophed at 0.05 to maintain pressures throughout the stay in the ER. This was done through a peripheral line as patient did not want a central line initially. Triage Nursing notes reviewed. Limited review of prior medical records performed Vital Signs: reviewed and remarkable for hypoxic and hypotensive Differential diagnosis: Differential diagnoses includes but is not limited to pneumonia, bronchitis, COPD/Asthma exacerbation, pneumothorax, pulmonary embolism, congestive heart failure, acute coronary syndrome ER treatment provided: See below Diagnostics interpreted by me include EKG and cardiac monitoring as listed below: -Cardiac Monitoring: An order was placed for continuous cardiac monitoring. The monitor shows a rate of 110 with atrial tachycardia rhythm. -ECG: Atrial tachycardia rate of 110 Normal axis Poor baseline QTc 462 -Laboratory studies:Interpreted by me as stated above in [facility] and shown below. Imaging studies: Xrays: As interpreted by me: Portable AP upright 1 view of the chest shows infiltrates in the bilateral bases and throughout both lungs CTs show: none Consultation(s): As described in [facility] Procedures:EM PROCEDURE NOTE - Endotracheal Intubation PROCEDURE NOTE: Informed consent was obtained by the patient. Verify Correct Patient: yes Procedure: Endotracheal intubation Indication: Respiratory failure The procedure was done emergently. Description of the Procedure: The patient was seen and properly identified. The patient was pre-oxygenated and intubated after rapid sequence induction with meds: Rocuronium and ketamine. Intubation was performed using a curved blade and a 7.5 cuffed endotracheal tube. The tube was visualized going through the cords and secured with the 25cm klaudia at the lips. The patient had good bi lateral breath sounds in the axillae with good chest rise. Proper ET tube placement was confirmed by end tidal CO2 detector. The patient tolerated the procedure well. Critical Care: I have personally spent 75 minutes of critical care time in the direct management of this patient. This includes bedside care, interpretation of diagnostic studies, and testing, discussion with consultants, patient, and family members, and other required patient management activities. This 75 minutes is in excess of all separately billable procedures. Past Med/Surg History Medical History Anemia, iron deficiency Aortic regurgitation Aortic stenosis Asthma Asthma exacerbation Cannabis abuse Chronic diastolic CHF (congestive heart failure) Coronary artery disease Premature atherosclerotic coronary disease s/p 2-vessel coronary intervention 10/2016 receiving ROJAS to the ramus intermedius and distal circumflex for NTEMI, Repeat catheterization 02/23/2020, s/p PCI with ROJAS to the RCA PDA on 02/23/20 Depression Diabetes mellitus, type 2 GERD (gastroesophageal reflux disease) Hepatitis C "Antibiotic screen positive, quantitative RNA positive 08/30/17" Hepatosplenomegaly History of drug abuse History of DVT (deep vein thrombosis) History of renal calculi Hx of drug abuse Hypertension Methamphetamine abuse Opiate abuse, continuous Polysubstance abuse Seizure disorder Surgical History History of cardiac cath 2017- 1 ROJAS to ramus, 2 ROJAS to L circumflex. 40-50% plaque to LAD 2018- distal disease (80%) within PDA History of carpal tunnel surgery History of lumbar spinal fusion Hx of tonsillectomy S/P coronary artery stent placement Status post cholecystectomy Family History Other Diabetes Heart disease Hypertension Kidney stones Seizures Social History Smoking Status: Heavy tobacco smoker Tobacco Type: Cigarettes Cigarettes Per Day: <20; Second Hand Exposure: Yes; Do You Dip or Chew Tobacco: No; Hx Alcohol Use: Yes Alcohol type: beer, wine and hard liquor Hx Substance Use: Yes Non-Prescribed Medications: Heroin, IV Drugs and Methamphetamines Last Used Substance: Unknown Last Used Substance Other:: 4 years ago Substance Use Type Other:: 3 years drug free per record Preferred Language: German Communication Ability: Impaired Communication Ability Comment: Patient is intubated and sedated Visual Impairment: No Limitations Hearing Ability: Normal Diamond Picker Required: No Beliefs That Will Affect Care: None marital status: Single Current Living Situation: Significant Other Current Living Situation Comment: Unknown due to pt condition How many Children do You have: 1 Feels Safe at Home: Yes Assistive Devices: Walker Allergies Allergies Allergy/AdvReac Type Severity Reaction Status Date / Time lidocaine Allergy Intermediate HIVES Verified 07/10/21 21:33 procaine Allergy Intermediate HIVES Verified 07/10/21 21:33 Penicillins Allergy Mild HAD NO Verified 07/10/21 21:33 PROBLEM WITH ZOSYN strawberry Allergy Mild HIVES Verified 07/10/21 21:33 cephalexin AdvReac Intermediate YEAST Verified 07/10/21 21:33 INFECTIONS tramadol AdvReac Intermediate SEIZURES Verified 07/10/21 21:33 azithromycin AdvReac Mild STOMACH Verified 03/14/22 21:33 PAIN Covid vaccine AdvReac Severe stopped Uncoded 04/21/22 23:21 breathing next day Home Meds Home Medications Medication Instructions Recorded Confirmed albuterol sulfate 2.5 mg/3 mL 2.5 mg inhalation Q4 PRN 07/10/21 12/04/22 (0.083 %) solution for nebulization WHEEZE/COUGH albuterol sulfate 90 mcg/actuation 2 puff inhalation Q4 PRN cough or 07/10/21 12/04/22 aerosol inhaler wheezing atorvastatin 80 mg tablet 80 mg PO QAM 07/10/21 12/04/22 buspirone 15 mg tablet 15 mg PO AMHS 07/10/21 12/04/22 clopidogrel 75 mg tablet 75 mg PO DAILY 07/10/21 12/04/22 cyclobenzaprine 10 mg tablet 10 mg PO BID 07/10/21 12/04/22 escitalopram oxalate 20 mg tablet 20 mg PO QAM 07/10/21 12/04/22 levetiracetam 500 mg tablet 500 mg PO AMHS 07/10/21 12/04/22 lisinopril 5 mg tablet 5 mg PO QAM 07/10/21 12/04/22 medroxyprogesterone 150 mg/mL 150 mg IM .Q3MO 07/10/21 12/04/22 intramuscular suspension metformin 1,000 mg tablet 1,000 mg PO BID 07/10/21 12/04/22 metoprolol succinate 25 mg 25 mg PO DAILY 07/10/21 12/04/22 tablet,extended release 24 hr polyethylene glycol 3350 17 gram 17 g PO DAILY PRN Constipation 07/10/21 12/04/22 oral powder packet (Miralax) potassium chloride 20 mEq 20 meq PO QAM 07/10/21 12/04/22 tablet,extended release(part/cryst) (Klor-Con M) torsemide 20 mg tablet 20 mg PO AMHS 07/10/21 12/04/22 trazodone 50 mg tablet 75 mg PO HS 07/10/21 12/04/22 aspirin 81 mg tablet,delayed 81 mg PO DAILY 03/03/22 12/04/22 release escitalopram oxalate 10 mg tablet 10 mg PO QAM 03/03/22 12/04/22 famotidine 20 mg tablet 20 mg PO BID PRN Heartburn 03/03/22 12/04/22 fluticasone furoate 200 1 inh inhalation QAM 03/03/22 12/04/22 mcg-vilanterol 25 mcg/dose inhalation powder (Breo Ellipta) gabapentin 300 mg capsule 300 mg PO TID 03/03/22 12/04/22 nitroglycerin 0.4 mg sublingual 0.4 mg sublingual DAILY PRN Chest 03/03/22 12/04/22 tablet Pain buprenorphine 8 mg-naloxone 2 mg 1 film sublingual DAILY 12/04/22 12/04/22 sublingual film Results & Data (ED) Vital Signs Vital Signs - 24 hr 12/04/22 15:21 12/04/22 15:21 12/04/22 15:28 Temperature 36.8 C Temperature Source Oral Pulse Rate 111 H 110 H Pulse Rate [Apical] Pulse Rhythm Regular Regular Pulse Rhythm [Apical] Pulse Strength [Apical] Respiratory Rate 28 H 30 H Respiratory Effort / Characteristics Short of Breath Short of Breath Respiratory Pattern Regular Regular Blood Pressure 85/50 L Blood Pressure [Right Arm] Blood Pressure Mean 61 Blood Pressure Mean [Right Arm] Blood Pressure Position Semi-fowlers Blood Pressure Position [Right Arm] Pulse Oximetry 90 96 Oxygen Delivery Method Non-rebreather Non-rebreather Non-rebreather Oxygen Flow Rate 15 15 15 Sepsis Recent Fever Within 48 Hours No Sepsis New/Unexplained Change in Mental Status No Sepsis Action Taken by Nursing Physician Notified 12/04/22 15:25 12/04/22 15:35 12/04/22 15:52 Temperature Temperature Source Pulse Rate 110 H Pulse Rate [Apical] 107 H 107 H Pulse Rhythm Pulse Rhythm [Apical] Regular Regular Pulse Strength [Apical] Normal Respiratory Rate 27 H 29 H Respiratory Effort / Characteristics Short of Breath Short of Breath Respiratory Pattern Regular Blood Pressure Blood Pressure [Right Arm] 87/54 L 82/53 L Blood Pressure Mean Blood Pressure Mean [Right Arm] 65 62 Blood Pressure Position Blood Pressure Position [Right Arm] Sitting Pulse Oximetry 95 98 Oxygen Delivery Method Non-rebreather Oxymask Oxygen Flow Rate 15 15 Sepsis Recent Fever Within 48 Hours Sepsis New/Unexplained Change in Mental Status Sepsis Action Taken by Nursing 12/04/22 15:56 12/04/22 16:15 Temperature Temperature Source Pulse Rate Pulse Rate [Apical] 110 H 108 H Pulse Rhythm Pulse Rhythm [Apical] Regular Pulse Strength [Apical] Respiratory Rate 30 H 26 H Respiratory Effort / Characteristics Spontaneous Accessory Muscle Use Labored Short of Breath Short of Breath Respiratory Pattern Regular Blood Pressure Blood Pressure [Right Arm] 103/73 Blood Pressure Mean Blood Pressure Mean [Right Arm] 83 Blood Pressure Position Blood Pressure Position [Right Arm] Sitting Pulse Oximetry 95 94 Oxygen Delivery Method Non-rebreather Oxymask Oxygen Flow Rate 15 15 Sepsis Recent Fever Within 48 Hours Sepsis New/Unexplained Change in Mental Status Sepsis Action Taken by Nursing Laboratory Data 12/04/22 15:35 12/04/22 19:58 Lab Results 12/04/22 12/04/22 12/04/22 Range/Units 15:35 15:35 15:35 WBC 29.78 H (4.8-10.8) K/ul RBC 3.45 L (4.20-5.40) M/uL Hgb 9.1 L (12.0-16.0) g/dl POC Hgb (12.0-16.0) g/dl Hct 29.5 L (37.0-47.0) % POC Hct (37-47) % MCV 85.5 (80.0-100.0) fL MCH 26.4 (25.0-34.0) pg MCHC 30.8 L (32.0-36.0) g/dL RDW Std Deviation 62.0 H (36.4-46.3) fL RDW Coeff of Hannah 20.0 H (11.5-14.5) % Plt Count 305 (130-400) K/uL MPV 10.4 (9.4-12.4) fL Immature Gran % (Auto) 0.8 % Neut % (Auto) 83.2 % Lymph % (Auto) 12.8 % [place] % (Auto) 2.8 % Eos % (Auto) 0.1 % Baso % (Auto) 0.3 % Neut # (Auto) 24.74 H (1.40-6.50) K/uL Lymph # (Auto) 3.82 H (1.2-3.4) K/uL [place] # (Auto) 0.84 H (0.11-0.59) K/uL Eos # (Auto) 0.04 (0-0.50) K/uL Baso # (Auto) 0.09 (0-0.2) K/uL Immature Gran # (Auto) 0.25 H (0.01-0.20) K/uL POC pH (7.35-7.45) POC pCO2 (35-46) mmHg POC pO2 (80-95) mmHg POC HCO3 (19-24) quinn/L POC Base Excess (-9-1.8) quinn/L POC ABG O2 Sat (90-95) % POC Sodium (135-144) mmol/L Sodium 136 (136-145) mmol/L POC Potassium (3.3-5.0) mmol/L Potassium 4.7 (3.5-5.1) mmol/L POC Chloride (101-112) mmol/L Chloride 108 H (98-107) mmol/L Carbon Dioxide 16 L (21-32) mmol/L POC Total CO2 (24-31) mmol/L Anion Gap 12 H (3-11) POC Anion Gap (16-25) mmol/L POC BUN (7-18) mg/dl BUN 24 H (6-23) mg/dl Creatinine 2.24 H (0.6-1.2) mg/dl POC Creatinine (0.6-1.3) mg/dl Est Cr Clr Drug Dosing 33.1 ml/min Est GFR ( Amer) 29.9 ml/min Est GFR (Non-Af Amer) 25.8 ml/min BUN/Creatinine Ratio 10.7 (10-20) Glucose 70 (70-99(Fasting)) mg/dl POC Glucose (other) (70-99) mg/dl Calcium 8.0 L (8.6-10.3) mg/dl POC Ioniz Calcium Chuy (1.12-1.32) mmol/l Total Bilirubin 0.5 (0.2-1.0) mg/dl AST 46 H (13-39) U/L ALT 13 (7-52) U/L Alkaline Phosphatase 82 (34-104) U/L Troponin I High Sens 843.8 H* (0-14) pg/ml B-Natriuretic Peptide 228 H (0-100) pg/ml Total Protein 6.4 (6.0-8.3) gm/dl Albumin 3.4 (3.4-5.0) gm/dl Globulin 3.0 (2.5-4.0) gm/dl Albumin/Globulin Ratio 1.1 (0.9-2) Lipase 11 (11-82) U/L Procalcitonin (0-0.5) ng/ml Urine Color Urine Appearance (Clear) Urine pH (4.5-7.5) Ur Specific [place] (1.000-1.030) Urine Protein (Negative) Urine Glucose (UA) (Negative) Urine Ketones (Negative) Urine Blood (Negative) Urine Nitrite (Negative) Urine Bilirubin (Negative) Urine Urobilinogen (Negative) Ur Leukocyte Esterase (Negative) Urine WBC (Auto) (0-5) /hpf Urine RBC (Auto) (0-4) /hpf U Hyaline Cast (Auto) (0-5) /lpf U Epithel Cells (Auto) (0-5) /lpf Urine Bacteria (Auto) (Negative) Urine Opiates Screen (Neg) Ur Methadone, Qual (Neg) Urine Barbiturates (Neg) Ur Phencyclidine (PCP) (Neg) U Amphetamin/Meth Scrn (Neg) MDMA (Ecstasy) Screen (Neg) U Benzodiazepines Scrn (Neg) Ur Cocaine Metabolite (Neg) U Marijuana (THC) Screen (Neg) Adenovirus (PCR) (NotDetected) B. pertussis DNA (PCR) (NotDetected) B.parapertussis DNA PCR (NotDetected) C. pneumoniae DNA (PCR) (NotDetected) Coronavirus OC43 (PCR) (NotDetected) Coronavirus HKU1 (PCR) (NotDetected) Coronavirus 229E (PCR) (NotDetected) SARS-CoV-2 (PCR) (NotDetected) Coronavirus NL63 (PCR) (NotDetected) Human Metapneumovir PCR (NotDetected) Influenza Type A (PCR) (NotDetected) Influenza Type B (PCR) (NotDetected) M. pneumoniae (PCR) (NotDetected) Parainfluenza 1 (PCR) (NotDetected) Parainfluenza 2 (PCR) (NotDetected) Parainfluenza 3 (PCR) (NotDetected) Parainfluenza 4 (PCR) (NotDetected) RSV (PCR) (NotDetected) Entero/Rhino (PCR) (NotDetected) 12/04/22 12/04/22 12/04/22 Range/Units 15:35 15:37 15:47 WBC (4.8-10.8) K/ul RBC (4.20-5.40) M/uL Hgb (12.0-16.0) g/dl POC Hgb 10.2 L 8.8 L (12.0-16.0) g/dl Hct (37.0-47.0) % POC Hct 30 L 26 L (37-47) % MCV (80.0-100.0) fL MCH (25.0-34.0) pg MCHC (32.0-36.0) g/dL RDW Std Deviation (36.4-46.3) fL RDW Coeff of Hannah (11.5-14.5) % Plt Count (130-400) K/uL MPV (9.4-12.4) fL Immature Gran % (Auto) % Neut % (Auto) % Lymph % (Auto) % [place] % (Auto) % Eos % (Auto) % Baso % (Auto) % Neut # (Auto) (1.40-6.50) K/uL Lymph # (Auto) (1.2-3.4) K/uL [place] # (Auto) (0.11-0.59) K/uL Eos # (Auto) (0-0.50) K/uL Baso # (Auto) (0-0.2) K/uL Immature Gran # (Auto) (0.01-0.20) K/uL POC pH 7.36 (7.35-7.45) POC pCO2 29 L (35-46) mmHg POC pO2 74 L (80-95) mmHg POC HCO3 16 L (19-24) quinn/L POC Base Excess -9.0 (-9-1.8) quinn/L POC ABG O2 Sat 94.0 (90-95) % POC Sodium 136 136 (135-144) mmol/L Sodium (136-145) mmol/L POC Potassium 4.7 4.7 (3.3-5.0) mmol/L Potassium (3.5-5.1) mmol/L POC Chloride 108 (101-112) mmol/L Chloride (98-107) mmol/L Carbon Dioxide (21-32) mmol/L POC Total CO2 17 L 17 L (24-31) mmol/L Anion Gap (3-11) POC Anion Gap 17.0 (16-25) mmol/L POC BUN 21 H (7-18) mg/dl BUN (6-23) mg/dl Creatinine (0.6-1.2) mg/dl POC Creatinine 2.5 H (0.6-1.3) mg/dl Est Cr Clr Drug Dosing ml/min Est GFR ( Amer) ml/min Est GFR (Non-Af Amer) ml/min BUN/Creatinine Ratio (10-20) Glucose (70-99(Fasting)) mg/dl POC Glucose (other) 75 (70-99) mg/dl Calcium (8.6-10.3) mg/dl POC Ioniz Calcium Chuy 0.99 L (1.12-1.32) mmol/l Total Bilirubin (0.2-1.0) mg/dl AST (13-39) U/L ALT (7-52) U/L Alkaline Phosphatase (34-104) U/L Troponin I High Sens (0-14) pg/ml B-Natriuretic Peptide (0-100) pg/ml Total Protein (6.0-8.3) gm/dl Albumin (3.4-5.0) gm/dl Globulin (2.5-4.0) gm/dl Albumin/Globulin Ratio (0.9-2) Lipase (11-82) U/L Procalcitonin 1.90 H (0-0.5) ng/ml Urine Color Urine Appearance (Clear) Urine pH (4.5-7.5) Ur Specific [place] (1.000-1.030) Urine Protein (Negative) Urine Glucose (UA) (Negative) Urine Ketones (Negative) Urine Blood (Negative) Urine Nitrite (Negative) Urine Bilirubin (Negative) Urine Urobilinogen (Negative) Ur Leukocyte Esterase (Negative) Urine WBC (Auto) (0-5) /hpf Urine RBC (Auto) (0-4) /hpf U Hyaline Cast (Auto) (0-5) /lpf U Epithel Cells (Auto) (0-5) /lpf Urine Bacteria (Auto) (Negative) Urine Opiates Screen (Neg) Ur Methadone, Qual (Neg) Urine Barbiturates (Neg) Ur Phencyclidine (PCP) (Neg) U Amphetamin/Meth Scrn (Neg) MDMA (Ecstasy) Screen (Neg) U Benzodiazepines Scrn (Neg) Ur Cocaine Metabolite (Neg) U Marijuana (THC) Screen (Neg) Adenovirus (PCR) (NotDetected) B. pertussis DNA (PCR) (NotDetected) B.parapertussis DNA PCR (NotDetected) C. pneumoniae DNA (PCR) (NotDetected) Coronavirus OC43 (PCR) (NotDetected) Coronavirus HKU1 (PCR) (NotDetected) Coronavirus 229E (PCR) (NotDetected) SARS-CoV-2 (PCR) (NotDetected) Coronavirus NL63 (PCR) (NotDetected) Human Metapneumovir PCR (NotDetected) Influenza Type A (PCR) (NotDetected) Influenza Type B (PCR) (NotDetected) M. pneumoniae (PCR) (NotDetected) Parainfluenza 1 (PCR) (NotDetected) Parainfluenza 2 (PCR) (NotDetected) Parainfluenza 3 (PCR) (NotDetected) Parainfluenza 4 (PCR) (NotDetected) RSV (PCR) (NotDetected) Entero/Rhino (PCR) (NotDetected) 12/04/22 12/04/22 12/04/22 Range/Units 16:13 16:13 16:20 WBC (4.8-10.8) K/ul RBC (4.20-5.40) M/uL Hgb (12.0-16.0) g/dl POC Hgb (12.0-16.0) g/dl Hct (37.0-47.0) % POC Hct (37-47) % MCV (80.0-100.0) fL MCH (25.0-34.0) pg MCHC (32.0-36.0) g/dL RDW Std Deviation (36.4-46.3) fL RDW Coeff of Hannah (11.5-14.5) % Plt Count (130-400) K/uL MPV (9.4-12.4) fL Immature Gran % (Auto) % Neut % (Auto) % Lymph % (Auto) % [place] % (Auto) % Eos % (Auto) % Baso % (Auto) % Neut # (Auto) (1.40-6.50) K/uL Lymph # (Auto) (1.2-3.4) K/uL [place] # (Auto) (0.11-0.59) K/uL Eos # (Auto) (0-0.50) K/uL Baso # (Auto) (0-0.2) K/uL Immature Gran # (Auto) (0.01-0.20) K/uL POC pH (7.35-7.45) POC pCO2 (35-46) mmHg POC pO2 (80-95) mmHg POC HCO3 (19-24) quinn/L POC Base Excess (-9-1.8) quinn/L POC ABG O2 Sat (90-95) % POC Sodium (135-144) mmol/L Sodium (136-145) mmol/L POC Potassium (3.3-5.0) mmol/L Potassium (3.5-5.1) mmol/L POC Chloride (101-112) mmol/L Chloride (98-107) mmol/L Carbon Dioxide (21-32) mmol/L POC Total CO2 (24-31) mmol/L Anion Gap (3-11) POC Anion Gap (16-25) mmol/L POC BUN (7-18) mg/dl BUN (6-23) mg/dl Creatinine (0.6-1.2) mg/dl POC Creatinine (0.6-1.3) mg/dl Est Cr Clr Drug Dosing ml/min Est GFR ( Amer) ml/min Est GFR (Non-Af Amer) ml/min BUN/Creatinine Ratio (10-20) Glucose (70-99(Fasting)) mg/dl POC Glucose (other) (70-99) mg/dl Calcium (8.6-10.3) mg/dl POC Ioniz Calcium Chuy (1.12-1.32) mmol/l Total Bilirubin (0.2-1.0) mg/dl AST (13-39) U/L ALT (7-52) U/L Alkaline Phosphatase (34-104) U/L Troponin I High Sens (0-14) pg/ml B-Natriuretic Peptide (0-100) pg/ml Total Protein (6.0-8.3) gm/dl Albumin (3.4-5.0) gm/dl Globulin (2.5-4.0) gm/dl Albumin/Globulin Ratio (0.9-2) Lipase (11-82) U/L Procalcitonin (0-0.5) ng/ml Urine Color Yellow Urine Appearance Clear (Clear) Urine pH 5.0 (4.5-7.5) Ur Specific [place] 1.011 (1.000-1.030) Urine Protein Negative (Negative) Urine Glucose (UA) Negative (Negative) Urine Ketones Negative (Negative) Urine Blood Negative (Negative) Urine Nitrite Negative (Negative) Urine Bilirubin Negative (Negative) Urine Urobilinogen Negative (Negative) Ur Leukocyte Esterase Trace H (Negative) Urine WBC (Auto) 1-5 (0-5) /hpf Urine RBC (Auto) 0-4 (0-4) /hpf U Hyaline Cast (Auto) 1-5 (0-5) /lpf U Epithel Cells (Auto) 10-20 H (0-5) /lpf Urine Bacteria (Auto) 1+ H (Negative) Urine Opiates Screen Neg (Neg) Ur Methadone, Qual Neg (Neg) Urine Barbiturates Neg (Neg) Ur Phencyclidine (PCP) Neg (Neg) U Amphetamin/Meth Scrn Neg (Neg) MDMA (Ecstasy) Screen Neg (Neg) U Benzodiazepines Scrn Neg (Neg) Ur Cocaine Metabolite Neg (Neg) U Marijuana (THC) Screen Neg (Neg) Adenovirus (PCR) Not Detected (NotDetected) B. pertussis DNA (PCR) Not Detected (NotDetected) B.parapertussis DNA PCR Not Detected (NotDetected) C. pneumoniae DNA (PCR) Not Detected (NotDetected) Coronavirus OC43 (PCR) Not Detected (NotDetected) Coronavirus HKU1 (PCR) Not Detected (NotDetected) Coronavirus 229E (PCR) Not Detected (NotDetected) SARS-CoV-2 (PCR) Not Detected (NotDetected) Coronavirus NL63 (PCR) Not Detected (NotDetected) Human Metapneumovir PCR Not Detected (NotDetected) Influenza Type A (PCR) Not Detected (NotDetected) Influenza Type B (PCR) Not Detected (NotDetected) M. pneumoniae (PCR) Not Detected (NotDetected) Parainfluenza 1 (PCR) Not Detected (NotDetected) Parainfluenza 2 (PCR) Not Detected (NotDetected) Parainfluenza 3 (PCR) Not Detected (NotDetected) Parainfluenza 4 (PCR) Not Detected (NotDetected) RSV (PCR) Not Detected (NotDetected) Entero/Rhino (PCR) Not Detected (NotDetected) Administered Medications Albuterol (Albuterol 0.083% Nebu Soln 3 Ml Vial) 2.5 mg INH Q6R WILMA; Protocol Stop: 01/03/23 19:44 Last Admin: 12/04/22 20:05 Dose: 2.5 mg Documented By: YANET Fentanyl Citrate (Fentanyl Bolus From Bag) 50 mcg IV Q60M PRN PRN Reason: Pain or Agitation Stop: 12/18/22 17:21 Last Admin: 12/04/22 20:47 Dose: 50 mcg Documented By: DOREEN Co-signed By: GAVI Admin: 12/04/22 20:40 Dose: 50 mcg Documented By: DOREEN Co-signed By: GAVI Admin: 12/04/22 20:32 Dose: 50 mcg Documented By: DOREEN Co-signed By: GAVI Heparin Sodium (Porcine) (Heparin Sod 5,000 Unit/0.5 Ml Vial) 5,000 units SQ Q8H [facility] Stop: 01/03/23 18:43 Last Admin: 12/04/22 20:20 Dose: 5,000 units Documented By: GAVI Norepinephrine Bitartrate (Levophed/D5w) 4 mg in 250 mls @ 0 mls/hr IV .Q0M WILMA; Protocol Stop: 01/03/23 15:59 Last Titration: 12/04/22 21:32 Dose: 0.05 mcg/kg/min, 15.9 mls/hr Documented By: Titration: 12/04/22 19:19 Dose: 0 mcg/kg/min, 0 mls/hr Documented By: Titration: 12/04/22 17:48 Dose: 0 mcg/kg/min, 0 mls/hr Documented By: Admin: 12/04/22 16:04 Dose: 0.05 mcg/kg/min, 15.9 mls/hr Documented By: [place] Co-signed By: EDI Fentanyl Citrate (Fentanyl Citrate) 2,500 mcg in 250 mls @ 10 mls/hr IV .Q25H WILMA; Protocol Stop: 12/18/22 17:29 Last Titration: 12/04/22 20:39 Dose: 100 mcg/hr, 10 mls/hr Documented By: SWETAP Co-signed By: GAVI Titration: 12/04/22 20:33 Dose: 50 mcg/hr, 5 mls/hr Documented By: DOREEN Co-signed By: GAVI Titration: 12/04/22 19:19 Dose: 25 mcg/hr, 2.5 mls/hr Documented By: MARYK Co-signed By: GAVI Admin: 12/04/22 17:32 Dose: 25 mcg/hr, 2.5 mls/hr Documented By: [place] Co-signed By: JOSLYN Propofol (Diprivan) 1,000 mg in 100 mls @ 20.4 mls/hr IV .Q4H55M WILMA; Protocol Stop: 12/07/22 18:43 Last Titration: 12/04/22 20:39 Dose: 40 mcg/kg/min, 20.4 mls/hr Documented By: Titration: 12/04/22 20:32 Dose: 30 mcg/kg/min, 15.3 mls/hr Documented By: Titration: 12/04/22 19:19 Dose: 20 mcg/kg/min, 10.2 mls/hr Documented By: BERTRAND Co-signed By: GAVI Admin: 12/04/22 19:18 Dose: 20 mcg/kg/min, 10.2 mls/hr Documented By: BERTRAND Co-signed By: GAVI Vancomycin HCl 2,000 mg/ (Sodium Chloride) 540 mls @ 200 mls/hr IV NOW ONE Stop: 12/04/22 22:41 Last Admin: 12/04/22 20:23 Dose: 200 mls/hr Documented By: GAVI Parenteral Electrolytes (Plasma-Lyte A Ph 7.4) 1,000 mls @ 100 mls/hr IV .Q10H [facility] Stop: 01/03/23 19:59 Last Admin: 12/04/22 20:27 Dose: 100 mls/hr Documented By: GAVI Methylprednisolone 40 mg/ (Syringe) 0.64 mls @ 1.5 mls/min IV BID WILMA Stop: 01/03/23 21:59 Last Admin: 12/04/22 21:30 Dose: 1.5 mls/min Documented By: DOREEN Magnesium Sulfate/Dextrose (Magnesium Sulfate / D5w) 1 gm in 100 mls @ 50 mls/hr IV Q2H [facility] Stop: 12/05/22 03:29 Last Admin: 12/04/22 21:33 Dose: 50 mls/hr Documented By: DOREEN Levetiracetam (Levetiracetam Soln 500 Mg/5 Ml Udp) 500 mg NG Q12 [facility] Stop: 01/03/23 21:14 Last Admin: 12/04/22 21:29 Dose: 500 mg Documented By: DOREEN Miscellaneous (Icu Protocol For Hyperglycemia) 1 each N/A ACHS [facility] Stop: 12/06/22 20:59 Last Admin: 12/04/22 20:41 Dose: 1 each Documented By: DOREEN Propofol (Propofol Bolus From Bag) 20 mg IV Q5M PRN PRN Reason: Sedation Stop: 12/07/22 18:43 Last Admin: 12/04/22 20:48 Dose: 20 mg Documented By: DOREEN Co-signed By: GAVI Admin: 12/04/22 20:40 Dose: 20 mg Documented By: DOREEN Co-signed By: GAVI Admin: 12/04/22 20:31 Dose: 20 mg Documented By: DOREEN Co-signed By: GAVI Discontinued Medications Albuterol (Albut/Ipratrop 3mg/0.5mg Neb 3 Ml Vial) Confirm Administered Dose 12 ml .ROUTE .STK-MED ONE Stop: 12/04/22 15:22 Last Admin: 12/04/22 15:55 Dose: Not Given Documented By: EM Albuterol (Albut/Ipratrop 3mg/0.5mg Neb 3 Ml Vial) 12 ml NEB ONE ONE; Protocol Stop: 12/04/22 15:22 Last Admin: 12/04/22 15:55 Dose: 12 ml Documented By: EM Fentanyl Citrate (Fentanyl Citrate Pf 100 Mcg/2 Ml Vial) Confirm Administered Dose 100 mcg .ROUTE .STK-MED ONE Stop: 12/04/22 17:24 Last Admin: 12/04/22 17:27 Dose: Not Given Documented By: NA Sodium Chloride (Nss) 500 mls @ 999 mls/hr IV .Q31M ONE Stop: 12/04/22 15:55 Last Admin: 12/04/22 15:45 Dose: Not Given Documented By: [place] Cefepime HCl (Maxipime) 2,000 mg in 20 mls @ 5 mls/min IV NOW STA; Protocol Stop: 12/04/22 16:00 Last Admin: 12/04/22 16:32 Dose: 5 mls/min Documented By: [place] Azithromycin 500 mg/ Dextrose 255 mls @ 127.5 mls/hr IV NOW STA Stop: 12/04/22 17:56 Last Infusion: 12/04/22 18:46 Dose: 0 mls/hr Documented By: Admin: 12/04/22 16:40 Dose: 127.5 mls/hr Documented By: [place] Midazolam HCl (Versed) 125 mg in 250 mls @ 2 mls/hr IV .Q96H [facility]; Protocol Stop: 01/03/23 17:29 Last Admin: 12/04/22 18:46 Dose: Not Given Documented By: BERTRAND Sodium Chloride (Nss 1000ml) 1,000 mls @ 999 mls/hr IV .Q1H1M ONE Stop: 12/04/22 18:31 Last Infusion: 12/04/22 19:17 Dose: 0 mls/hr Documented By: Admin: 12/04/22 17:48 Dose: 999 mls/hr Documented By: [place] Calcium Chloride 1,000 mg/ (Dextrose) 60 mls @ 240 mls/hr IV NOW ONE Stop: 12/04/22 20:14 Last Infusion: 12/04/22 20:39 Dose: 0 mls/hr Documented By: Admin: 12/04/22 20:24 Dose: 240 mls/hr Documented By: GAVI Piperacillin Sod/Tazobactam (Sod 4.5 gm/ Dextrose) 120 mls @ 240 mls/hr IV NOW ONE; Protocol Stop: 12/04/22 20:29 Last Admin: 12/04/22 20:24 Dose: 240 mls/hr Documented By: GAVI Insulin Aspart (Insulin Aspart Per Unit Charge) 0 units SC NOW STA Stop: 12/04/22 20:58 Last Admin: 12/04/22 21:20 Dose: 7 units Documented By: GAVI Co-signed By: AG Insulin Glargine (Lantus Per Unit Charge) 10 units SC ONE ONE Stop: 12/04/22 21:01 Last Admin: 12/04/22 21:21 Dose: 10 units Documented By: GAVI Co-signed By: AG Methylprednisolone (Methylprednisolone 40 Mg/Ml Vial) 40 mg IV NOW STA Stop: 12/04/22 15:22 Last Admin: 12/04/22 15:34 Dose: 40 mg Documented By: [place] Midazolam HCl (Midazolam Hcl 5 Mg/Ml 2ml Vial) Confirm Administered Dose 10 mg .ROUTE .STK-MED ONE Stop: 12/04/22 17:24 Last Admin: 12/04/22 17:27 Dose: Not Given Documented By: [place] Midazolam HCl (Midazolam Hcl 1 Mg/Ml 2ml Vial) Confirm Administered Dose 4 mg .ROUTE .STK-MED ONE Stop: 12/04/22 18:00 Last Increment: 12/04/22 18:01 Dose: 2 mg Documented By: [place] Guallpaaneous (Stat Iv Infusion Titration Per Protocol) 1 each N/A NOW STA Stop: 12/04/22 15:56 Last Admin: 12/04/22 16:23 Dose: Not Given Documented By: [place] Miscellaneous (Rapid Sequence Induction Bag) Confirm Administered Dose 1 each N/A .STK-MED ONE Stop: 12/04/22 17:13 Last Admin: 12/04/22 17:28 Dose: 1 each Documented By: [place] Guallpaaneous (Stat Iv Infusion Titration Per Protocol) 1 each N/A NOW STA Stop: 12/04/22 17:23 Last Admin: 12/04/22 19:27 Dose: Not Given Documented By: BERTRAND Odell (Stat Iv Infusion Titration Per Protocol) 1 each N/A NOW STA Stop: 12/04/22 18:45 Last Admin: 12/04/22 19:27 Dose: Not Given Documented By: BERTRAND Propofol (Propofol Iv Emulsion 10 Mg/Ml 100 Ml Vial) Confirm Administered Dose 1,000 mg IV .STK-MED ONE Stop: 12/04/22 18:40 Last Admin: 12/04/22 19:15 Dose: Not Given Documented By: BERTRAND Imaging Data Radiologist's Impression: Chest X-Ray 12/04/22 15:21 SINGLE VIEW CHEST CLINICAL HISTORY: Atypical chest pain. FINDINGS: An AP, portable, upright chest radiograph is compared to study dated 04/21/2022 and correlated with chest CT dated 03/06/2022. The heart is enlarged. Extensive multifocal airspace opacities are seen throughout both lungs. No large pleural effusion or pneumothorax is seen. The bony thorax is grossly intact. IMPRESSION: 1. Cardiomegaly. 2. Diffuse airspace opacities are seen throughout both lungs. This could represent pulmonary edema and/or multifocal pneumonia. Clinical correlation will be required and radiographic follow-up to resolution is recommended. ACT 112: Negative or not required by law. Electronically signed by: Ja Villanueva M.D. 12/04/2022 3:45 PM Discharge Plan Visit Data Chief Complaint: Respiratory Distress ED Provider: Yusuf Robertson Discharge Problem: Respiratory failure, Sepsis, Pneumonia, Acute hypotension, Hypoxia Patient Disposition: Admitted As Inpatient Discharge Instructions Interventions: ED Discharge Assessment Last Done: 12/04/22 17:54
--- NOTE | 2022-12-04 15:47 | XRay Report ---
SINGLE VIEW CHEST CLINICAL HISTORY: Atypical chest pain. FINDINGS: An AP, portable, upright chest radiograph is compared to study dated 04/21/2022 and correla lisette with chest CT dated 03/06/2022. The heart is enlarged. Extensive multifocal airspace opacities are seen throughout both lungs. No large pleural effusion or pneumothorax is seen. The bony thorax is gr ossly intact. IMPRESSION: 1. Cardiomegaly. 2. Diffuse airspace opacities are seen throughout both lungs. This could represent pulmonary edema an d/or multifocal pneumonia. Clinical correlation will be required and radiographic follow-up to resolu tion is recommended. ACT 112: Negative or not required by law. Electronically signed by: Ja Villanueva M.D. 12/04/2022 3:45 PM
[2022-12-04 15:51] LABS: iSTAT Creatinine 2.5 mg/dl (0.6-1.3); iSTAT Hemoglobin 10.2 g/dl (12.0-16.0); iSTAT Ionized Calcium 0.99 mmol/l (1.12-1.32); iSTAT Potassium 4.7 mmol/L (3.3-5.0)
[2022-12-04] MEDS ORDERED: STAT IV Infusion **Titration per Protocol STA ×4 (15:55→22:22)
[2022-12-04] MEDS ORDERED: CEFEPIME 2,000 MG/20 ML VIAL IV STA (15:57)
[2022-12-04] MEDS ORDERED: AZITHROMYCIN 500 MG in DEXTROSE 5% 250 ML IV STA (15:57)
[2022-12-04 15:59] LABS: Hematocrit (blood only) 29.5 % (37.0-47.0); Hemoglobin 9.1 g/dl (12.0-16.0); Mean Corpuscular Hemoglobin 26.4 pg (25.0-34.0); Mean Corpuscular Hgb Conc 30.8 g/dL (32.0-36.0); Mean Corpuscular Volume 85.5 fL (80.0-100.0); Mean Platelet Volume 10.4 fL (9.4-12.4); Platelet Count 305 K/uL (130-400); Red Blood Count 3.45 M/uL (4.20-5.40); White Blood Count 29.78 K/ul (4.8-10.8)
[2022-12-04] MEDS ORDERED: NOREPINEPHRINE/D5W 4 MG/250 ML PLCT IV SCH (16:00)
[2022-12-04 16:01] LABS: iSTAT Arterial Blood Gas HCO3 16 meg/L (19-24); iSTAT Arterial Blood Gas pCO2 29 mmHg (35-46); iSTAT Arterial Blood Gas pH 7.36 (7.35-7.45); iSTAT Arterial Blood Gas pO2 74 mmHg (80-95); iSTAT Carbon Dioxide 17 mmol/L (24-31); iSTAT Hematocrit 26 % (37-47); iSTAT Hemoglobin 8.8 g/dl (12.0-16.0); iSTAT Potassium 4.7 mmol/L (3.3-5.0); iSTAT Sodium 136 mmol/L (135-144)
[2022-12-04 16:20] LABS: Basophils # (auto) 0.09 K/uL (0-0.2); Basophils % (auto) 0.3 %; Eosinophils # (auto) 0.04 K/uL (0-0.50); Eosinophils % (auto) 0.1 %; Immature Granulocytes # (auto) 0.25 K/uL (0.01-0.20); Immature Granulocytes % (auto) 0.8 %; Lymphocytes # (auto) 3.82 K/uL (1.2-3.4); Lymphocytes % (auto) 12.8 %; Monocytes # (auto) 0.84 K/uL (0.11-0.59); Monocytes % (auto) 2.8 %; Neutrophils # (auto) 24.74 K/uL (1.40-6.50); Neutrophils % (auto) 83.2 %
[2022-12-04 16:21] LABS: Troponin I High Sensitivity 843.8 pg/ml (0-14)
[2022-12-04 16:33] LABS: Appearance Urine Clear (Clear); Bacteria Urine Automated 1+ (Negative); Bilirubin Urine Negative (Negative); Blood Urine Negative (Negative); Color Urine Yellow; Glucose Urine UA Negative (Negative); Ketones Urine Negative (Negative); Leukocyte Esterase Urine Trace (Negative); Nitrite Urine Negative (Negative); Protein Urine Negative (Negative); RBC Urine Automated 0-4 /hpf (0-4); Specific Gravity Urine 1.011 (1.000-1.030); Urobilinogen Urine Negative (Negative)
[2022-12-04 16:37] LABS: Albumin Level 3.4 gm/dl (3.4-5.0); Bilirubin,Total 0.5 mg/dl (0.2-1.0); Potassium 4.7 mmol/L (3.5-5.1)
--- NOTE | 2022-12-04 16:41 | Cardiology Consultation ---
Date of Consultation December 04, 2022 Assessment & Plan (1) Hypoxia: Plan 42 yo woman presenting with severe Hypoxia (Acute) + Troponin EKG - no ST segment elevations CXR - bilateral infiltrates Hypotension noted Patient started on Levophed for BP support Marked Leukocytosis Significant Metabolic Acidosis No major hypercarbia STAT Bedside ECHO performed. I was present as images were obtained Preliminary report LVEF 60% No dense wall motion abnormalities noted No major valvular stenotic or regurgitant lesions RV was not markedly dilated RV function was WNL No major TR IVC was not dilated No significant Pericardial Effusion noted. ECHO was very helpful to guide search for etiology Hypotension would be difficult to attribute to: * LV systolic dysfunction * Severe (not present) * Severe RV dysfunction * Severe Pulmonary Hypertension * Large acute PE * Cardiac Tamponade Furthermore, there was no major evidence of Right to Left Shunting - difficult to attribute Hypoxia to an intracardiac shunt. Although this was not a bubble study, given the degree of hypoxia, would suspect that a shunt would be visible on color doppler and it WAS NOT present. Given the degree of hypoxia, would focus on pulmonary pathology as potential cause of Hypoxia Lactate is 4 Creat appears to be c/w AJIT LFTs - as of yet - do not appear to be c/w shock liver Concur with Pressor Support Consider CT of Chest Consider Broad Spectrum ABX Pt may be slightly volume contracted Troponin elevation appears to be secondary to demand No immediate need for radiographer cardiac catheterization mobilization Please call with any acute issues Dylon Sheppard History of Present Illness Reason for Consultation: Hypoxia Requesting Physician: ED Staff History of Present Illness 42 yo woman presenting with profound hypoxia CXR - question of CHF Troponin - elevated Question if hypoxia is being driven primarily by a cardiac etiology No complaints of Chest Pain EKG - sans ST segment elevations Allergies Allergy/AdvReac Type Severity Reaction Status Date / Time lidocaine Allergy Intermediate HIVES Verified 07/10/21 21:33 procaine Allergy Intermediate HIVES Verified 07/10/21 21:33 Penicillins Allergy Mild HAD NO Verified 07/10/21 21:33 PROBLEM WITH ZOSYN strawberry Allergy Mild HIVES Verified 07/10/21 21:33 cephalexin AdvReac Intermediate YEAST Verified 07/10/21 21:33 INFECTIONS tramadol AdvReac Intermediate SEIZURES Verified 07/10/21 21:33 azithromycin AdvReac Mild STOMACH Verified 07/10/21 21:33 PAIN Covid vaccine AdvReac Severe stopped Uncoded 04/21/22 23:21 breathing next day Home Medications Medication Instructions Recorded Confirmed Type albuterol sulfate 2.5 mg/3 mL 2.5 mg inhalation Q4 PRN 07/10/21 12/04/22 History (0.083 %) solution for nebulization WHEEZE/COUGH albuterol sulfate 90 mcg/actuation 2 puff inhalation Q4 PRN cough or 07/10/21 12/04/22 History aerosol inhaler wheezing atorvastatin 80 mg tablet 80 mg PO QAM 07/10/21 12/04/22 History buprenorphine 8 mg-naloxone 2 mg 0.5 tab sublingual TID 07/10/21 12/04/22 History sublingual tablet buspirone 15 mg tablet 15 mg PO AMHS 07/10/21 12/04/22 History clopidogrel 75 mg tablet 75 mg PO DAILY 07/10/21 12/04/22 History cyclobenzaprine 10 mg tablet 10 mg PO BID 07/10/21 12/04/22 History escitalopram oxalate 20 mg tablet 20 mg PO QAM 07/10/21 12/04/22 History levetiracetam 500 mg tablet 500 mg PO AMHS 07/10/21 12/04/22 History lisinopril 5 mg tablet 5 mg PO QAM 07/10/21 12/04/22 History medroxyprogesterone 150 mg/mL 150 mg IM .Q3MO 07/10/21 12/04/22 History intramuscular suspension metformin 1,000 mg tablet 1,000 mg PO BID 07/10/21 12/04/22 History metoprolol succinate 25 mg 25 mg PO DAILY 07/10/21 12/04/22 History tablet,extended release 24 hr polyethylene glycol 3350 17 gram 17 g PO DAILY PRN Constipation 07/10/21 12/04/22 History oral powder packet (Miralax) potassium chloride 20 mEq 20 meq PO QAM 07/10/21 12/04/22 History tablet,extended release(part/cryst) (Klor-Con M) torsemide 20 mg tablet 20 mg PO AMHS 07/10/21 12/04/22 History trazodone 50 mg tablet 75 mg PO HS 07/10/21 12/04/22 History aspirin 81 mg tablet,delayed 81 mg PO DAILY 03/03/22 12/04/22 History release escitalopram oxalate 10 mg tablet 10 mg PO QAM 03/03/22 12/04/22 History famotidine 20 mg tablet 20 mg PO BID PRN Heartburn 03/03/22 12/04/22 History fluticasone furoate 200 1 inh inhalation QAM 03/03/22 12/04/22 History mcg-vilanterol 25 mcg/dose inhalation powder (Breo Ellipta) gabapentin 300 mg capsule 300 mg PO TID 03/03/22 12/04/22 History nitroglycerin 0.4 mg sublingual 0.4 mg sublingual DAILY PRN Chest 03/03/22 12/04/22 History tablet Pain buprenorphine 8 mg-naloxone 2 mg 1 film sublingual DAILY 12/04/22 12/04/22 History sublingual film Patient History Medical History Abnormal CT scan, chest Acute electrocardiogram changes Acute respiratory failure with hypoxia Altered mental status, unspecified Aortic regurgitation Aortic stenosis Asthma Atypical chest pain Cannabis abuse Cellulitis of both lower extremities Chronic diastolic CHF (congestive heart failure) Coronary artery disease Depression Diabetes mellitus, type 2 Encounter for smoking cessation counseling GERD (gastroesophageal reflux disease) Gram negative sepsis Hepatitis C "Antibiotic screen positive, quantitative RNA positive 08/30/17" Hepatosplenomegaly History of drug abuse History of DVT (deep vein thrombosis) History of renal calculi Hypertension Hypocalcemia Opiate abuse, continuous Overdose Seizure disorder Surgical History History of cardiac cath 2017- 1 ROJAS to ramus, 2 ROJAS to L circumflex. 40-50% plaque to LAD 2018- distal disease (80%) within PDA History of carpal tunnel surgery History of lumbar spinal fusion Hx of tonsillectomy Status post cholecystectomy Family History Other Diabetes Heart disease Hypertension Kidney stones Seizures Social History Smoking Status: Current every day smoker Tobacco Type: Cigarettes Cigarettes Per Day: <20; Second Hand Exposure: Yes; Do You Dip or Chew Tobacco: No; Hx Alcohol Use: No Hx Substance Use: Yes Non-Prescribed Medications: Heroin, IV Drugs and Methamphetamines Last Used Substance: Unknown Last Used Substance Other:: 4 years ago Substance Use Type Other:: 3 years drug free per record Preferred Language: Azerbaijani Communication Ability: Effective Visual Impairment: No Limitations Hearing Ability: Normal 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 Induction Required: No Beliefs That Will Affect Care: None marital status: Single Current Living Situation: Significant Other Current Living Situation Comment: LIVES WITH ROOMMATES How many Children do You have: 1 Feels Safe at Home: Yes Assistive Devices: Walker Review of Systems Review of Systems: All systems reviewed & are unremarkable except as noted in HPI & below Physical Exam Physical Exam: Obese JVP difficult to assess S1S2 tachy 2/6 systolic murmur + Abdomen -soft No LE edema Results & Data Vital Signs (Past 12 Hours) Vital Signs Temp Pulse Pulse Resp BP BP Pulse Ox 12/04/22 16:35 114 H 29 H 91/68 L 94 12/04/22 16:15 108 H 26 H 103/73 94 12/04/22 15:56 110 H 30 H 95 12/04/22 15:52 107 H 29 H 82/53 L 98 12/04/22 15:35 107 H 27 H 87/54 L 95 12/04/22 15:25 110 H 12/04/22 15:28 110 H 30 H 96 12/04/22 15:21 36.8 C 111 H 28 H 85/50 L 90 12/04/22 15:21 O2 Del Method O2 Flow Rate 12/04/22 16:35 Oxyhood 15 12/04/22 16:15 Oxymask 15 12/04/22 15:56 Non-rebreather 15 12/04/22 15:52 Oxymask 15 12/04/22 15:35 Non-rebreather 15 12/04/22 15:25 12/04/22 15:28 Non-rebreather 15 12/04/22 15:21 Non-rebreather 15 12/04/22 15:21 Non-rebreather 15 Laboratory Results Cardiac Enzymes 12/04/22 Range/Units 15:35 Troponin I High Sens 843.8 H* (0-14) pg/ml CBC 12/04/22 Range/Units 15:35 WBC 29.78 H (4.8-10.8) K/ul RBC 3.45 L (4.20-5.40) M/uL Hgb 9.1 L (12.0-16.0) g/dl Hct 29.5 L (37.0-47.0) % Plt Count 305 (130-400) K/uL Neut # (Auto) 24.74 H (1.40-6.50) K/uL Lymph # (Auto) 3.82 H (1.2-3.4) K/uL Bollinger # (Auto) 0.84 H (0.11-0.59) K/uL Eos # (Auto) 0.04 (0-0.50) K/uL Baso # (Auto) 0.09 (0-0.2) K/uL Comprehensive Metabolic Panel 12/04/22 Range/Units 15:35 Sodium 136 (136-145) mmol/L Potassium 4.7 (3.5-5.1) mmol/L Chloride 108 H (98-107) mmol/L Carbon Dioxide 16 L (21-32) mmol/L Calcium 8.0 L (8.6-10.3) mg/dl Albumin 3.4 (3.4-5.0) gm/dl Intake and Output 12/04/22 12/04/22 12/04/22 06:59 14:59 22:59 Other: Weight 85 kg Weight Measurement Method Built in [facility] Patient Weight 12/05/22 06:59 Weight 85 kg Medications Administered Current Inpatient Medications Norepinephrine Bitartrate (Levophed/D5w) 4 mg in 250 mls @ 15.938 mls/hr IV .[id number] [facility]; Protocol Stop: 01/03/23 15:59 Last Admin: 12/04/22 16:04 Dose: 0.05 mcg/kg/min, 15.9 mls/hr Azithromycin 500 mg/ Dextrose 255 mls @ 127.5 mls/hr IV NOW STA Stop: 12/04/22 17:56 Last Admin: 12/04/22 16:40 Dose: 127.5 mls/hr
[2022-12-04 16:43] LABS: Albumin Globulin Ratio 1.1 (0.9-2); BUN Creatinine Ratio 10.7 (10-20); Creatinine Clr Calc Pharmacy 33.1 ml/min; Est GFR (African American) 29.9 ml/min; Est GFR (Non-African American) 25.8 ml/min; Total Protein 6.4 gm/dl (6.0-8.3)
[2022-12-04] MEDS ORDERED: RAPID SEQUENCE INDUCTION BAG ONE (17:12)
[2022-12-04] MEDS ORDERED: MIDAZOLAM BOLUS FROM BAG IV PRN (17:22)
[2022-12-04] MEDS ORDERED: MIDAZOLAM HCL 5 MG/ML 2ML VIAL ONE (17:23)
[2022-12-04] MEDS ORDERED: fentaNYL citrate PF 100 MCG/2 ML VIAL ONE (17:23)
[2022-12-04 17:25] LABS: Adenovirus PCR Not Detected (NotDetected); Bordetella parapertussis PCR Not Detected (NotDetected); Bordetella pertussis PCR Not Detected (NotDetected); Chlamydia pneumoniae PCR Not Detected (NotDetected); Coronavirus 229E PCR Not Detected (NotDetected); Coronavirus CoV-2 (COVID19)PCR Not Detected (NotDetected); Coronavirus HKU1 PCR Not Detected (NotDetected); Coronavirus NL63 PCR Not Detected (NotDetected); Coronavirus OC43PCR Not Detected (NotDetected); Human Metapneumovirus PCR Not Detected (NotDetected); Influenza A PCR Not Detected (NotDetected); Influenza B PCR Not Detected (NotDetected); Mycoplasma pneumoniae PCR Not Detected (NotDetected); Parainfluenza Virus 1 PCR Not Detected (NotDetected); Parainfluenza Virus 2 PCR Not Detected (NotDetected); Parainfluenza Virus 3 PCR Not Detected (NotDetected); Parainfluenza Virus 4 PCR Not Detected (NotDetected); Respiratory Syncytial VirusPCR Not Detected (NotDetected); Rhinovirus/Enterovirus PCR Not Detected (NotDetected)
[2022-12-04] MEDS ORDERED: MIDAZOLAM HCL 125 MG/250 ML BAG IV SCH (17:30)
[2022-12-04] MEDS ORDERED: fentaNYL citrate 2,500 MCG/250 ML BAG IV SCH (17:30)
[2022-12-04] MEDS ORDERED: SODIUM CHLORIDE 0.9% 1000ML 1,000 ML IV ONE (17:31)
--- NOTE | 2022-12-04 17:35 | XRay Report ---
XR chest 1V portable CLINICAL HISTORY: ett TECHNIQUE: Single frontal radiograph of the chest was obtained. Comparison: Comparison is made to chest radiograph 12/04/2022 FINDINGS: Endotracheal tube terminates 4 cm from the misti. Cardiomegaly is noted. Multiple airspace opacities are again seen. No evidence of pleural effusion or pneumothorax. IMPRESSION: Satisfactory appearance of the endotracheal tube. Redemonstration of pneumonia. ACT 112: Negative or not required by law. Electronically signed by: Moi Ring M.D. 12/04/2022 5:33 PM
--- NOTE | 2022-12-04 17:36 | Electrocardiogram Report ---
Test Reason : Blood Pressure : / mmHG Vent. Rate : 110 BPM Atrial Rate : 000 BPM P-R Int : 000 ms QRS Dur : 074 ms QT Int : 342 ms P-R-T Axes : 000 046 040 degrees QTc Int : 462 ms Normal sinus rhythm Confirmed by Liu Harrington ([id number]) on 12/04/2022 5:36:14 PM Referred By: Confirmed By:Angus Harrington
--- NOTE | 2022-12-04 17:42 | Communication Note ---
Date of Service: December 04, 2022 42 yo diabetic female presented in acute respiratory distress. She was in the process of being intubated so I was unable to perform an independent history from the patient. Per record review and discussion wtih the DUSTIN providers who did speak with her the shortness of breath began this morning and worsened. She reported cough, congestion and runny nose also present. Denied chest pain, n/v/diarrhea. She had been placed on a 15L NRB in triage and remains on this and is tachypenic and ill appearing. She has a history of chronic hypoxemic respiratory failure, chronic systolic and diastolic CHF, history of moderate persistent asthma, nonrheumatic aortic valve stenosis, CAD status post stent, questionable tricuspid valve vegetation, chronic hepatitis C, CKD stage III, history of narcotic addiction on Suboxone with depression. She has multiple other comorbidities also. In the ER she was tachycardic and hypotensive. She was treated with Solu-Medrol 40 mg IV and an albuterol neb for 1 hour. Normal saline was considered however out of concern for pulmonary edema this was held until acute echocardiogram could be performed. Norepinephrine was started and she was given cefepime and azithromycin to cover for possible bilateral pneumonia. Per cardiology consultation EF was 60% and IVC was not dilated. There was no significant pericardial effusion noted. Pulmonary pathology was felt to be the potential cause of hypoxia. With lactate up to 4 she was administered IV fluids. As a result of persistent respiratory distress she was ultimately intubated and sedated. She was transition to the ICU for treatment of septic shock with multifocal pneumonia. Bacteria was also present on workup. On exam she was significantly tachypneic and oriented. There was no gross focal neurologic deficits. Lower extremities were warm and well-perfused without significant edema. Abdomen was soft nontender nondistended. She was tachycardic. Skin was warm and dry. Pulmonary auscultation revealed coarse rhonchi throughout. S1-S2 heard with regular rhythm and tachy rate. No significant murmur. Workup includes a CBC with no 30 K leukocytosis. H&H is around her baseline of 9.1/29.5. Chemistry reveals worsening kidney function with a creatinine of 2.24 . There is evidence of acidosis. Lactate is 4.1. Magnesium is 1.2, phosphorus 5.6, calcium 7.6. She is hyperglycemic. Chest CT confirms multifocal groundglass and consolidative opacities compatible with pneumonia. Reactive lymphadenopathy is also seen. EKG reviewed and reveals sinus tachycardia. 1. Acute on chronic respiratory failure 2. Septic shock secondary to pneumonia +/- UTI 3. Acute renal failure-baseline creatinine is normal and now worsened at 2.24. 4. Anemia 5. DMII with hyperglycemia 6. Suboxone use Cont transfer to ICU for care of respiratory failure and septic shock requiring pressor support. Correct electrolyte abnormalities. Acute kidney injury likely related to septic shock. Cont to trend and avoid contrast and other nephrotoxic substances. Consider alternative empiric abx regimen than vanc/zosyn to avoid worsening AJIT. Defer abx to ICU team. Cont steroid therapy in septic shock. Cont with overall resuscitative efforts overnight. Monitor for signs of withdrawal and cont suboxone therapy as soon as able. DO Luis
--- NOTE | 2022-12-04 17:50 | History & Physical Report ---
Date of Service December 04, 2022 Assessment & Plan (1) Septic shock: (2) Acute on chronic respiratory failure with hypoxia: (3) Multifocal pneumonia: Plan: Admit to ICU Patient presenting from home with reports of worsening shortness of breath. Initially required 15L NRB and subsequent intubation due to respiratory distress. On presentation, hypotensive requiring Levophed, tachycardic, WBC 29 K, lactic acid 4.1, creatinine 2.2 CT chest showing multifocal pneumonia Received IV azithromycin, cefepime in the ED, additional antibiotics as per ICU Follow cultures (4) Elevated troponin: (5) Coronary artery disease: Plan: HS troponin 843 No reports of chest pain, EKG without acute ST changes Stat echo obtained in ED with cardiology at the bedside --no wall motion abnormalities noted, EF 60% Elevated troponin likely secondary to demand ischemia in the setting of septic shock, continue to trend troponin (6) Chronic diastolic CHF (congestive heart failure): (7) Aortic stenosis: Plan: Monitor volume status closely proBNP 228 (8) Seizure disorder: Plan: On Keppra, consider IV administration while intubated (9) Polysubstance abuse: Plan: History of, on Suboxone DVT PROPHYLAXIS SQ heparin Patient seen in collaboration with Dr. Smith. I spent a total of 75 minutes coordinating, documenting, and providing care for this patient excluding time spent in the performance of separately billed services. This included personally reviewing all current laboratories and imaging studies, medication reconciliation, outpatient chart review, and discussion with specialists. 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 Patient reports that when she woke up this morning she had shortness of breath with minimal exertion. Shortness of breath progressed and she presented to the ED for further evaluation. Patient states she has been having chronic allergy symptoms and congestion for the past several weeks. She denies cough and sputum production. No fever or chills. Reports a poor appetite but denies abdominal pain, nausea, vomiting, or diarrhea. No urinary symptoms. In the ED, patient required 15L NRB to maintain saturations. She was hypotensive and place on Levophed infusion. Labs show WBC 29K, creat 2.2, lactate 4.1, HS trop 843, proBNP 228, procal 1.9. CXR suggestive of pulmonary edema and/or multifocal pneumonia. Patient was given neb treatment, IV azithromycin, IV cefepime, IV solumedrol. Allergies Allergy/AdvReac Type Severity Reaction Status Date / Time lidocaine Allergy Intermediate HIVES Verified 07/10/21 21:33 procaine Allergy Intermediate HIVES Verified 07/10/21 21:33 Penicillins Allergy Mild HAD NO Verified 07/10/21 21:33 PROBLEM WITH ZOSYN strawberry Allergy Mild HIVES Verified 07/10/21 21:33 cephalexin AdvReac Intermediate YEAST Verified 07/10/21 21:33 INFECTIONS tramadol AdvReac Intermediate SEIZURES Verified 07/10/21 21:33 azithromycin AdvReac Mild STOMACH Verified 07/10/21 21:33 PAIN Covid vaccine AdvReac Severe stopped Uncoded 04/21/22 23:21 breathing next day Home Medications Medication Instructions Recorded Confirmed Type albuterol sulfate 2.5 mg/3 mL 2.5 mg inhalation Q4 PRN 07/10/21 12/04/22 History (0.083 %) solution for nebulization WHEEZE/COUGH albuterol sulfate 90 mcg/actuation 2 puff inhalation Q4 PRN cough or 07/10/21 12/04/22 History aerosol inhaler wheezing atorvastatin 80 mg tablet 80 mg PO QAM 07/10/21 12/04/22 History buspirone 15 mg tablet 15 mg PO [facility] 07/10/21 12/04/22 History clopidogrel 75 mg tablet 75 mg PO DAILY 07/10/21 12/04/22 History cyclobenzaprine 10 mg tablet 10 mg PO BID 07/10/21 12/04/22 History escitalopram oxalate 20 mg tablet 20 mg PO QAM 07/10/21 12/04/22 History levetiracetam 500 mg tablet 500 mg PO [facility] 07/10/21 12/04/22 History lisinopril 5 mg tablet 5 mg PO QAM 07/10/21 12/04/22 History medroxyprogesterone 150 mg/mL 150 mg IM .Q3MO 07/10/21 12/04/22 History intramuscular suspension metformin 1,000 mg tablet 1,000 mg PO BID 07/10/21 12/04/22 History metoprolol succinate 25 mg 25 mg PO DAILY 07/10/21 12/04/22 History tablet,extended release 24 hr polyethylene glycol 3350 17 gram 17 g PO DAILY PRN Constipation 07/10/21 12/04/22 History oral powder packet (Miralax) potassium chloride 20 mEq 20 meq PO QAM 07/10/21 12/04/22 History tablet,extended release(part/cryst) (Klor-Con M) torsemide 20 mg tablet 20 mg PO [facility] 07/10/21 12/04/22 History trazodone 50 mg tablet 75 mg PO HS 07/10/21 12/04/22 History aspirin 81 mg tablet,delayed 81 mg PO DAILY 03/03/22 12/04/22 History release escitalopram oxalate 10 mg tablet 10 mg PO QAM 03/03/22 12/04/22 History famotidine 20 mg tablet 20 mg PO BID PRN Heartburn 03/03/22 12/04/22 History fluticasone furoate 200 1 inh inhalation QAM 03/03/22 12/04/22 History mcg-vilanterol 25 mcg/dose inhalation powder (Breo Ellipta) gabapentin 300 mg capsule 300 mg PO TID 03/03/22 12/04/22 History nitroglycerin 0.4 mg sublingual 0.4 mg sublingual DAILY PRN Chest 03/03/22 12/04/22 History tablet Pain buprenorphine 8 mg-naloxone 2 mg 1 film sublingual DAILY 12/04/22 12/04/22 History sublingual film Past Med/Surg History Medical History Anemia, iron deficiency Aortic regurgitation Aortic stenosis Asthma Asthma exacerbation Cannabis abuse Chronic diastolic CHF (congestive heart failure) Coronary artery disease Premature atherosclerotic coronary disease s/p 2-vessel coronary intervention 10/2016 receiving ROJAS to the ramus intermedius and distal circumflex for NTEMI, Repeat catheterization 02/23/2020, s/p PCI with ROJAS to the RCA PDA on 02/23/20 Depression Diabetes mellitus, type 2 GERD (gastroesophageal reflux disease) Hepatitis C "Antibiotic screen positive, quantitative RNA positive 08/30/17" Hepatosplenomegaly History of drug abuse History of DVT (deep vein thrombosis) History of renal calculi Hx of drug abuse Hypertension Methamphetamine abuse Opiate abuse, continuous Polysubstance abuse Seizure disorder Surgical History History of cardiac cath 2016- 1 ROJAS to ramus, 2 ROJAS to L circumflex. 40-50% plaque to LAD 2017- distal disease (80%) within PDA History of carpal tunnel surgery History of lumbar spinal fusion Hx of tonsillectomy S/P coronary artery stent placement Status post cholecystectomy Family History Other Diabetes Heart disease Hypertension Kidney stones Seizures Social History Smoking Status: Heavy tobacco smoker Tobacco Type: Cigarettes Cigarettes Per Day: <20; Second Hand Exposure: Yes; Do You Dip or Chew Tobacco: No; Hx Alcohol Use: Yes Alcohol type: beer, wine and hard liquor Hx Substance Use: Yes Non-Prescribed Medications: Heroin, IV Drugs and Methamphetamines Last Used Substance: Unknown Last Used Substance Other:: 4 years ago Substance Use Type Other:: 3 years drug free per record Preferred Language: Latvian Communication Ability: Impaired Communication Ability Comment: Patient is intubated and sedated Visual Impairment: No Limitations Hearing Ability: Normal It Instructor Required: No Beliefs That Will Affect Care: None marital status: Single Current Living Situation: Significant Other Current Living Situation Comment: Unknown due to pt condition How many Children do You have: 1 Feels Safe at Home: Yes Assistive Devices: Walker Review of Systems Review of Systems: ROS per HPI, all other systems reviewed and negative Physical Exam Constitutional: + ill appearing appears older than stated age Eyes: PERRL, conjunctivae normal, anicteric sclerae ENMT: external ear and nose normal, oropharynx normal Respiratory: + tachypneic Auscultation: + crackles (BL mid/lower lung christina ) Cardiovascular: Rate/Rhythm: regular rhythm and + tachycardic Vessels: normal peripheral pulses Extremities: + edema (+1 edema BLE ) Gastrointestinal (Abdomen): normal bowel sounds, soft, nontender, no hepatosplenomegaly Musculoskeletal: no cyanosis or clubbing, extremities motor strength 5/5 Skin: no rashes, warm and dry Neurologic: PERRL, EOMI, accommodation nl, no face palsy, no dysarthria Psychiatric: A+Ox3, euthymic affect Results & Data Results & Data Vital Signs (Past 12 Hours) Vital Signs Temp Pulse Pulse Resp BP BP Pulse Ox 12/04/22 17:09 86 L 12/04/22 17:06 121 H 32 H 106/66 82 L 12/04/22 16:49 114 H 28 H 116/83 91 12/04/22 16:35 114 H 29 H 91/68 L 94 12/04/22 16:15 108 H 26 H 103/73 94 12/04/22 15:56 110 H 30 H 95 12/04/22 15:52 107 H 29 H 82/53 L 98 12/04/22 15:35 107 H 27 H 87/54 L 95 12/04/22 15:25 110 H 12/04/22 15:28 110 H 30 H 96 12/04/22 15:21 36.8 C 111 H 28 H 85/50 L 90 12/04/22 15:21 O2 Del Method O2 Flow Rate 12/04/22 17:09 Non-rebreather 15 12/04/22 17:06 Non-rebreather 15 12/04/22 16:49 Oxymask 15 12/04/22 16:35 Oxyhood 15 12/04/22 16:15 Oxymask 15 12/04/22 15:56 Non-rebreather 15 12/04/22 15:52 Oxymask 15 12/04/22 15:35 Non-rebreather 15 12/04/22 15:25 12/04/22 15:28 Non-rebreather 15 12/04/22 15:21 Non-rebreather 15 12/04/22 15:21 Non-rebreather 15 Laboratory Results Short CBC 12/04/22 Range/Units 15:35 WBC 29.78 H (4.8-10.8) K/ul Hgb 9.1 L (12.0-16.0) g/dl Hct 29.5 L (37.0-47.0) % Plt Count 305 (130-400) K/uL BMP 12/04/22 15:35 Sodium 136 Potassium 4.7 Chloride 108 H Carbon Dioxide 16 L BUN 24 H Creatinine 2.24 H Glucose 70 Calcium 8.0 L Liver Function 12/04/22 Range/Units 15:35 Total Bilirubin 0.5 (0.2-1.0) mg/dl AST 46 H (13-39) U/L ALT 13 (7-52) U/L Alkaline Phosphatase 82 (34-104) U/L Albumin 3.4 (3.4-5.0) gm/dl Urine 12/04/22 Range/Units 16:13 Urine Color Yellow Urine Appearance Clear (Clear) Urine pH 5.0 (4.5-7.5) Ur Specific [place] 1.011 (1.000-1.030) Urine Protein Negative (Negative) Urine Glucose (UA) Negative (Negative) Diagnostic Findings Chest X-Ray 12/04/22 15:21 SINGLE VIEW CHEST CLINICAL HISTORY: Atypical chest pain. FINDINGS: An AP, portable, upright chest radiograph is compared to study dated 04/21/2022 and correlated with chest CT dated 03/06/2022. The heart is enlarged. Extensive multifocal airspace opacities are seen throughout both lungs. No large pleural effusion or pneumothorax is seen. The bony thorax is grossly intact. IMPRESSION: 1. Cardiomegaly. 2. Diffuse airspace opacities are seen throughout both lungs. This could represent pulmonary edema and/or multifocal pneumonia. Clinical correlation will be required and radiographic follow-up to resolution is recommended. ACT 112: Negative or not required by law. Electronically signed by: Ja Villanueva M.D. 12/04/2022 3:[address] 12/04/22 17:03 CT chest diagnostic wo con CLINICAL HISTORY: hypoxic TECHNIQUE: Multidetector row helical CT of the chest was performed. Coronal and sagittal reformations were obtained. Automated dose lowering techniques and/or adjustment according to patient size were utilized for this exam. CT DOSE: 968.36 mGy.cm Comparison: Comparison is made to CT chest of 822 FINDINGS: Lungs and pleura: Multifocal groundglass and consolidative opacities are seen. No pleural effusions or pneumothorax. Heart and pericardium: Cardiomegaly is seen with biatrial enlargement. Vessels: Severe atherosclerotic changes in the aorta and coronary arteries. Mediastinum and katty: Numerous enlarged mediastinal lymph nodes measure up to 11 mm in diameter. Chest wall and lower neck: An 18 mm thyroid nodule is seen. Abdomen: Unremarkable. Bones: Unremarkable. IMPRESSION: Multifocal groundglass and consolidative opacities compatible with pneumonia. Reactive lymphadenopathy is seen. ACT 112: Negative or not required by law. Electronically signed by: Moi Ring M.D. 12/04/2022 7:03 PM Chest X-Ray 12/04/22 17:15 XR chest 1V portable CLINICAL HISTORY: ett TECHNIQUE: Single frontal radiograph of the chest was obtained. Comparison: Comparison is made to chest radiograph 12/04/2022 FINDINGS: Endotracheal tube terminates 4 cm from the misti. Cardiomegaly is noted. Multiple airspace opacities are again seen. No evidence of pleural effusion or pneumothorax. IMPRESSION: Satisfactory appearance of the endotracheal tube. Redemonstration of pneumonia. ACT 112: Negative or not required by law. Electronically signed by: Moi Ring M.D. 12/04/2022 5:33 PM Supervising Physician Co-Signing Physician Notes I have seen and examined the patient and have discussed the case with the provider above. I agree with the assessment and plan as stated . 42 yo diabetic female presented in acute respiratory distress. She was in the process of being intubated so I was unable to perform an independent history from the patient. Per record review and discussion wtih the DUSTIN providers who did speak with her the shortness of breath began this morning and worsened. She reported cough, congestion and runny nose also present. Denied chest pain, n/v/diarrhea. She had been placed on a 15L NRB in triage and remains on this and is tachypenic and ill appearing. She has a history of chronic hypoxemic respiratory failure, chronic systolic and diastolic CHF, history of moderate persistent asthma, nonrheumatic aortic valve stenosis, CAD status post stent, questionable tricuspid valve vegetation, chronic hepatitis C, CKD stage III, history of narcotic addiction on Suboxone with depression. She has multiple other comorbidities also. In the ER she was tachycardic and hypotensive. She was treated with Solu-Medrol 40 mg IV and an albuterol neb for 1 hour. Normal saline was considered however out of concern for pulmonary edema this was held until acute echocardiogram could be performed. Norepinephrine was started and she was given cefepime and azithromycin to cover for possible bilateral pneumonia. Per cardiology consultation EF was 60% and IVC was not dilated. There was no significant pericardial effusion noted. Pulmonary pathology was felt to be the potential cause of hypoxia. With lactate up to 4 she was administered IV fluids. As a result of persistent respiratory distress she was ultimately intubated and sedated. She was transition to the ICU for treatment of septic shock with multifocal pneumonia. Bacteria was also present on workup. On exam she was significantly tachypneic and oriented. There was no gross focal neurologic deficits. Lower extremities were warm and well-perfused without significant edema. Abdomen was soft nontender nondistended. She was tachycardi c. Skin was warm and dry. Pulmonary auscultation revealed coarse rhonchi throughout. S1-S2 heard with regular rhythm and tachy rate. No significant murmur. Workup includes a CBC with no 30 K leukocytosis. H&H is around her baseline of 9.1/29.5. Chemistry reveals worsening kidney function with a creatinine of 2.24 . There is evidence of acidosis. Lactate is 4.1. Magnesium is 1.2, phosphorus 5.6, calcium 7.6. She is hyperglycemic. Chest CT confirms multifocal groundglass and consolidative opacities compatible with pneumonia. Reactive lymphadenopathy is also seen. EKG reviewed and reveals sinus tachycardia. 1. Acute on chronic respiratory failure 2. Septic shock secondary to pneumonia +/- UTI 3. Acute renal failure-baseline creatinine is normal and now worsened at 2.24. 4. Anemia 5. DMII with hyperglycemia 6. Suboxone use Cont transfer to ICU for care of respiratory failure and septic shock requiring pressor support. Correct electrolyte abnormalities. Acute kidney injury likely related to septic shock. Cont to trend and avoid contrast and other nephrotoxic substances. Consider alternative empiric abx regimen than vanc/zosyn to avoid worsening AJIT. Defer abx to ICU team. Cont steroid therapy in septic shock. Cont with overall resuscitative efforts overnight. Monitor for signs of withdrawal and cont suboxone therapy as soon as able. DO Luis
[2022-12-04] MEDS ORDERED: MIDAZOLAM HCL 1 MG/ML 2ML VIAL ONE ×2 (17:59→22:06)
[2022-12-04] MEDS ORDERED: PROPOFOL IV EMULSION 10 MG/ML 100 ML VIAL IV ONE (18:39)
[2022-12-04] MEDS ORDERED: POLYETHYLENE (MIRALAX) 17 GM PACK PO PRN (18:44)
[2022-12-04] MEDS ORDERED: ALBUTEROL 0.083% NEBU SOLN 3 ML VIAL INH PRN (18:44)
--- NOTE | 2022-12-04 19:06 | CT Scan Report ---
CT chest diagnostic wo con CLINICAL HISTORY: hypoxic TECHNIQUE: Multidetector row helical CT of the chest was performed. Coronal and sagittal reformations were obtained. Automated dose lowering techniques and/or adjustment according to patient size were u tilized for this exam. CT DOSE: 968.36 mGy.cm Comparison: Comparison is made to CT chest of 822 FINDINGS: Lungs and pleura: Multifocal groundglass and consolidative opacities are seen. No pleural effusions o r pneumothorax. Heart and pericardium: Cardiomegaly is seen with biatrial enlargement. Vessels: Severe atherosclerotic changes in the aorta and coronary arteries. Mediastinum and katty: Numerous enlarged mediastinal lymph nodes measure up to 11 mm in diameter. Chest wall and lower neck: An 18 mm thyroid nodule is seen. Abdomen: Unremarkable. Bones: Unremarkable. IMPRESSION: Multifocal groundglass and consolidative opacities compatible with pneumonia. Reactive lymphadenopath y is seen. ACT 112: Negative or not required by law. Electronically signed by: Moi Ring M.D. 12/04/2022 7:03 PM
[2022-12-04] MEDS: propofoL 1,000 MG/100 ML VIAL IV SCH ×2 (19:18→22:40)
[2022-12-04] MEDS ORDERED: VANCOMYCIN CONSULT ACTIVE PRN ×2 (19:42)
--- NOTE | 2022-12-04 19:52 | Procedure Note ---
Procedure Note Date of Service December 04, 2022 Note INTERNAL JUGULAR CENTRAL LINE PROCEDURE NOTE: Procedure: Internal Jugular Central Line Placement Proceduralist: Vladimir FINCH ([facility] Attending: Dr. ARMENTA Indication: Central Drug Administration, Poor Venous Access, Multiple Lab Draws Necessary, etc. Anesthesia:[x]Lidocaine 1% Consent was implied as patient intubated, needing sedation, vasopressors, and with poor access as well as no immediate family members immediately available. A time-out was completed verifying correct patient, procedure, site, positioning, and implants(s) or special equipment if applicable. Patients RIGHT Neck was cleansed and draped in the typical sterile fashion using Chloraprep. The Internal Jugular Vein and Carotid Artery were identified using ultrasound. The superficial tissue was anesthetized using 8 mL of 1% lidocaine without epi nephrine under direct visualization with the ultrasound. After adequate anesthetization was achieved, the Internal Jugular vein was cannulated under direct ultrasound guidance using an introducer needle on a syringe. Good venous blood return was maintained prior to removal of syringe from introducer needle. Using Seldinger Technique, a guide wire was advanced through the introducer needle without resistance. The introducer needle was removed and ultrasound images were obtained of the guide wire within the Internal Jugular Vein. A small incision was made in penetrating fashion at the guide wire insertion site utilizing an 11 blade scalpel. The dilator was advanced to the vessel without resistance. The dilator was exchanged for the triple lumen catheter which was advanced into the vessel without resistance. The guide wire was removed intact from the catheter without issue. Claves were placed on each catheter tip with confirmation of good blood flow from each lumen. Each port was easily flushed with sterile saline. The catheter was placed at 17 cm and sut[address] in place. BioPatch was applied to the catheter and a sterile Tegaderm dressing was applied over the catheter with careful attention to sterility. Patient tolerated procedure well. No immediate complications were met. Post procedure x-ray was completed, placement was appropriate and no pneumothorax was noted. Images obtained are saved for permanent record Procedural Ultrasound Guidance: Procedure Date: 12/04/22 Indication: Direct Visualization for central venous access Proceduralist: Vladimir FINCH ([facility]) Attending: Dr. Armenta Artery AND Vein visualized: YES Compressible Vein: YES Guidewire or Short Catheter seen in vein prior to dilation: YES Images obtained were not saved to the EMR secondary to urgency of need for central access Coding CPT Codes Tubes, Drains, and Vasc Access - Tubes, Drains, and Vasc Access: [id number] Insertion Of Non-tunneled Catheter Age 5 Yrs> ([id number]) Tubes, Drains, and Vasc Access - Tubes, Drains, and Vasc Access: [id number] Ultrasound Guidance For Vascular ([id number]) [facility] Procedure Codes (Charges) Tubes, Drains, and Vasc Access Procedure 1: Tubes, Drains, and Vasc Access: [id number] Insertion Of Non-tunneled Catheter Age 5 Yrs> Procedure 2: Tubes, Drains, and Vasc Access: [id number] Ultrasound Guidance For Vascular
--- NOTE | 2022-12-04 19:52 | Critical Care Consultation ---
Patient seen and examined. EMR reviewed. Discussed with critical care DUSTIN overnight. Agree with assessment plan as noted. Please refer to my progress note from 12/05/2022 for additional details Date of Consultation December 04, 2022 Assessment & Plan (1) Acute on chronic respiratory failure with hypoxia: (2) Multifocal pneumonia: (3) Chronic diastolic CHF (congestive heart failure): (4) HLD (hyperlipidemia): (5) HTN (hypertension): (6) Aortic stenosis: (7) Diabetes mellitus, type 2: (8) Coronary artery disease: (9) Asthma: Plan Reason Critically Ill: 42 YOF presents with hypoxic respiratory failure likely secondary to multifocal pneumonia- mechanically intubated and sedated. Neuro - Sedation for mechanical ventilation, Poly-substance abuse, Seizure disorder. Peripheral Neuropathy, CAM ICU: MEG[place]NA - Sedation with Fentanyl and Propofol for VIOLETA goal -2 to -1 to maintain ventilator synchrony - Hold Suboxone - Hold Buspirone, cyclobenzaprine, escitalopram, gabapentin, Trazadone - Seizure disorder - Continue with Keppra- bioavailability is good so will continue with administration down NGT - change to IV if vasopressor requirement is high - Will send urine tox screen- however likely to be effected by her medications listed Cardiac - Septic shock, CAD, HTN, HLD, Elevated HsCTNI, HFpEF - Septic shock secondary to pulmonary source- with organ dysfucntion of cardiac, pulmonary, and renals - Lactate improving - continue to trend- vasopressor to maintain MAP >65 - Cyrstalloids for urine output support - ECHO performed in the EMD in the setting of elevated HsCTNI without ischemic ECG changes- was without reported RWMA or other valve abnormalities- of note aortic valve not visualized well - For her elevated HsCTNI- trend ECG- likely demand in setting of respiratory distress - BNP at 228 diurese as hemodynamics allow - relative hypotension at this time appears sedation related however continue with vasopressors as needed Respiratory - Acute hypoxic respiratory failure, bilateral multifocal pneumonia with ground glass opacities, Asthma - [employer] LOW peep, HIGH FIo2 ventilator strategy- Pplt 22 on arrival PEEP -8 - Driving pressure of 14 - Scheduled nebulizers - Ground glass opacities with multifactorial pneumonia- DDX- PJP, DAH, Atypical bacterial/viral Pneumonia - BAL performed after reviewing CT scan findings- is without blood or hemorrhage making DAH unlikely- Will send PJP, Cytology, gram stain and culture Eosinophils from sputum - Serum- Legionella, Cryptococcus, Histo, Aspergillus and PJP PCR - ABX therapy - Zosyn, Vancomycin, Azithromycin +/- Bactrim at this time follow renal indices - Following Bronchoscopy will place on Methylpred 80mg IV Daily (40mg BID) GI - No acute needs - NPO - OGT placed - LIWS - Initiate trickle feeds in AM if vasopressor requirements remain low RENAL/LYTES - AJIT, [place], Hyopcalcemia, - AJIT likely pre-renal from sepsis/hypovolemia- follow renal dose medications - Replace electrolytes - Adequate Urine output at this time - UA negative for blood or protein- urine culture is pending - As above - [place] to gravity ENDO - DMII - Hyperglycemic ICU protocol - goal BG <180mg/DL HEME - Leukocytosis, anemia - Chronic anemia- unsure of previous workup or heme/onc evaluation - Normocytic - will send iron and b12 labs- last available in our system is from 2020 ID - Multilobar pneumonia with ground glass opacities - Bronch negative for bleeding - Blood culture pending - Sputum from BAL - cytology, eos count, PJP, - Serum Legionella, Cryptococcus, Histo, Aspergillus and PJP PCR - ABX: Zosyn, Vanco, Azithromycin- +/- bactrim at this time for empiric coverage of PJP- de-escelate as able and directed by clinical picture and culture data LINES/IV ACCESS - CVL, [place], [place], ETT, OGT Continue use of these lines DVT PROPHYLAXIS - Heparin subq, SCDS DISPO: ICU while intubated and mechanically ventilated, follow hemodynamics and defend MAP and oxygenation I have personally spent 70 minutes of critical care time in the direct management of this patient. This is a life/limb threatening event. This includes time spent evaluating patient, direct bedside care, chart review, placing orders, interpretation of diagnostic studies, discussion with consultants, patient, and family members, as well as other required patient management activities. This time is exclusive of all separately billable procedures, and separate from and in addition to any other critical care service time. Thank you for allowing us to participate in the care of this patient. Please refer to my attending physician's documentation for any further recommendations. History of Present Illness Reason for Consultation: intubation requiring mechanical ventilation Requesting Physician: Zina Smith Attending Physician: Zina Smith, DO History of Present Illness 42 YOF arrives to the ICU intubated and sedated without any family available. Information obtained for this HPI and consultation is obtained by record review. Medical history known at this time- DMII, Chronic respiratory failure on 3L oxygen at home, asthma, HFpEF, HTN, Aortic Stenosis, reported polysubstance abuse for which she is on Suboxone at home, CAD with ROJAS to ramus/circ with residual CAD ([id number]). Patient reported to the EMD in respiratory distress and hypoxia- reportedly refused NIVV and requested intubation. She had routine labs performed to include VBG, HsCTNI, BNP and respiratory biofire performed. She had a ECHO performed and interpreted by cardiology at the bedside for concern of NSTEMI- there was reported no RWMA or worsening of valve abnormalities, nor mention of previous Tricuspid Valve mass noted in the fall of 2021. A CT scan of her chest was obtained following intubation, however not performed with contrast to rule out PE- she is with good oxygenation and likely other source for her pulmonary distress. She is noted to have Leukocytosis to 29, Lacate of 4, as well as PCT of 1.90. She appears to have received dose of Cefepime and Azithromycin in the EMD and 40mg of Methylpred. On arrival to ICU the patient was sedated with Fentanyl, hypoxic while lying flat. She was prepped and draped for CVL and Arterial line placement. See separate procedure notes. Overall patient appears to be septic from pulmonary source noting bilateral ground glass opacities and opacifications on CXR. She was noted to have Staph intermedius from previous sputum culture when she was intubated in February- this was pansensetive at that time- will add on Vancomycin until MRSA/sputum sample obtained, coverage with Zosyn for reported history of PCN allergy but previously tolerated Zosyn, and Azithromycin, send legionella and aspergillus AG. COVID/RESP BiOFIRE/Flu- NEGATIVE CODE: FULL Allergies Allergy/AdvReac Type Severity Reaction Status Date / Time lidocaine Allergy Intermediate HIVES Verified 07/10/21 21:33 procaine Allergy Intermediate HIVES Verified 07/10/21 21:33 Penicillins Allergy Mild HAD NO Verified 07/10/21 21:33 PROBLEM WITH ZOSYN strawberry Allergy Mild HIVES Verified 07/10/21 21:33 cephalexin AdvReac Intermediate YEAST Verified 07/10/21 21:33 INFECTIONS tramadol AdvReac Intermediate SEIZURES Verified 07/10/21 21:33 azithromycin AdvReac Mild STOMACH Verified 07/10/21 21:33 PAIN Covid vaccine AdvReac Severe stopped Uncoded 04/21/22 23:21 breathing next day Home Medications Medication Instructions Recorded Confirmed Type albuterol sulfate 2.5 mg/3 mL 2.5 mg inhalation Q4 PRN 07/10/21 12/04/22 History (0.083 %) solution for nebulization WHEEZE/COUGH albuterol sulfate 90 mcg/actuation 2 puff inhalation Q4 PRN cough or 07/10/21 12/04/22 History aerosol inhaler wheezing atorvastatin 80 mg tablet 80 mg PO QAM 07/10/21 12/04/22 History buspirone 15 mg tablet 15 mg PO AMHS 07/10/21 12/04/22 History clopidogrel 75 mg tablet 75 mg PO DAILY 07/10/21 12/04/22 History cyclobenzaprine 10 mg tablet 10 mg PO BID 07/10/21 12/04/22 History escitalopram oxalate 20 mg tablet 20 mg PO QAM 07/10/21 12/04/22 History levetiracetam 500 mg tablet 500 mg PO AMHS 07/10/21 12/04/22 History lisinopril 5 mg tablet 5 mg PO QAM 07/10/21 12/04/22 History medroxyprogesterone 150 mg/mL 150 mg IM .Q3MO 07/10/21 12/04/22 History intramuscular suspension metformin 1,000 mg tablet 1,000 mg PO BID 07/10/21 12/04/22 History metoprolol succinate 25 mg 25 mg PO DAILY 07/10/21 12/04/22 History tablet,extended release 24 hr polyethylene glycol 3350 17 gram 17 g PO DAILY PRN Constipation 07/10/21 12/04/22 History oral powder packet (Miralax) potassium chloride 20 mEq 20 meq PO QAM 07/10/21 12/04/22 History tablet,extended release(part/cryst) (Klor-Con M) torsemide 20 mg tablet 20 mg PO AMHS 07/10/21 12/04/22 History trazodone 50 mg tablet 75 mg PO HS 07/10/21 12/04/22 History aspirin 81 mg tablet,delayed 81 mg PO DAILY 03/03/22 12/04/22 History release escitalopram oxalate 10 mg tablet 10 mg PO QAM 03/03/22 12/04/22 History famotidine 20 mg tablet 20 mg PO BID PRN Heartburn 03/03/22 12/04/22 History fluticasone furoate 200 1 inh inhalation QAM 03/03/22 12/04/22 History mcg-vilanterol 25 mcg/dose inhalation powder (Breo Ellipta) gabapentin 300 mg capsule 300 mg PO TID 03/03/22 12/04/22 History nitroglycerin 0.4 mg sublingual 0.4 mg sublingual DAILY PRN Chest 03/03/22 12/04/22 History tablet Pain buprenorphine 8 mg-naloxone 2 mg 1 film sublingual DAILY 12/04/22 12/04/22 History sublingual film Patient History Medical History Anemia, iron deficiency Aortic regurgitation Aortic stenosis Asthma Asthma exacerbation Cannabis abuse Chronic diastolic CHF (congestive heart failure) Coronary artery disease Premature atherosclerotic coronary disease s/p 2-vessel coronary intervention 10/2016 receiving ROJAS to the ramus intermedius and distal circumflex for NTEMI, Repeat catheterization 02/23/2020, s/p PCI with ROJAS to the RCA PDA on 02/23/20 Depression Diabetes mellitus, type 2 GERD (gastroesophageal reflux disease) Hepatitis C "Antibiotic screen positive, quantitative RNA positive 08/30/17" Hepatosplenomegaly History of drug abuse History of DVT (deep vein thrombosis) History of renal calculi Hx of drug abuse Hypertension Methamphetamine abuse Opiate abuse, continuous Polysubstance abuse Seizure disorder Surgical History History of cardiac cath 2016- 1 ROJAS to ramus, 2 ROJAS to L circumflex. 40-50% plaque to LAD 2018- distal disease (80%) within PDA History of carpal tunnel surgery History of lumbar spinal fusion Hx of tonsillectomy S/P coronary artery stent placement Status post cholecystectomy Family History Other Diabetes Heart disease Hypertension Kidney stones Seizures Social History Smoking Status: Heavy tobacco smoker Tobacco Type: Cigarettes Cigarettes Per Day: <20; Second Hand Exposure: Yes; Do You Dip or Chew Tobacco: No; Hx Alcohol Use: Yes Alcohol type: beer, wine and hard liquor Hx Substance Use: Yes Non-Prescribed Medications: Heroin, IV Drugs and Methamphetamines Last Used Substance: Unknown Last Used Substance Other:: 4 years ago Substance Use Type Other:: 3 years drug free per record Preferred Language: Latvian Communication Ability: Impaired Communication Ability Comment: Patient is intubated and sedated Visual Impairment: No Limitations Hearing Ability: Normal Right Of Way Appraiser Required: No Beliefs That Will Affect Care: None marital status: Single Current Living Situation: Significant Other Current Living Situation Comment: Unknown due to pt condition How many Children do You have: 1 Feels Safe at Home: Yes Assistive Devices: Walker Review of Systems Review of Systems: REVIEW OF SYSTEMS: Unable to be obtained secondary to intubation and mechanical ventilation Physical Exam Physical Exam: PHYSICAL EXAM: General: Intubated and Sedated Head: Normocephalic, atraumatic ENT: PERRLA, EOMI, no pharyngeal exudate, mucous membranes dry Neuro: Inbutabed and sedated, no spontaneous movements, withdraw to painful stimuli and grimaces with trapezius squeeze Chest: equal rise and fall of the chest, scattered rhonchi throughout with wheeze bilaterally, diminished in the bases bilaterally Cardiac: Regular rate and rhythm, telemetry reviewed- sinus tachycardia, skin warm dry, cap refill <3 seconds, peripheral pulses +2 no JVD, grade I-II systolic Murmur LSB GI: NABS x 4 quadrants, soft, not distended or firm : [place] to gravity draining light yellow urine Psych: MEGHANA Skin: healed scabs to lower extremities Results & Data Results & Data Vital Signs (Past 12 Hours) Vital Signs Temp Pulse Pulse Resp BP BP Pulse Ox 12/04/22 18:30 135 H 24 92 12/04/22 17:26 130 H 24 97 12/04/22 18:16 133 H 24 124/84 98 12/04/22 17:54 138 H 24 166/89 H 97 12/04/22 17:46 136 H 24 170/92 H 93 12/04/22 17:09 86 L 12/04/22 17:06 121 H 32 H 106/66 82 L 12/04/22 16:49 114 H 28 H 116/83 91 12/04/22 16:35 114 H 29 H 91/68 L 94 12/04/22 16:15 108 H 26 H 103/73 94 12/04/22 15:56 110 H 30 H 95 12/04/22 15:52 107 H 29 H 82/53 L 98 12/04/22 15:35 107 H 27 H 87/54 L 95 12/04/22 15:25 110 H 12/04/22 15:28 110 H 30 H 96 12/04/22 15:21 36.8 C 111 H 28 H 85/50 L 90 12/04/22 15:21 O2 Del Method O2 Flow Rate FiO2 12/04/22 18:30 80 12/04/22 17:26 100 12/04/22 18:16 Mechanical Vent 60 12/04/22 17:54 Mechanical Vent 60 12/04/22 17:46 Mechanical Vent 60 12/04/22 17:09 Non-rebreather 15 12/04/22 17:06 Non-rebreather 15 12/04/22 16:49 Oxymask 15 12/04/22 16:35 Oxyhood 15 12/04/22 16:15 Oxymask 15 12/04/22 15:56 Non-rebreather 15 12/04/22 15:52 Oxymask 15 12/04/22 15:35 Non-rebreather 15 12/04/22 15:25 12/04/22 15:28 Non-rebreather 15 12/04/22 15:21 Non-rebreather 15 12/04/22 15:21 Non-rebreather 15 Laboratory Results Abnormal lab results 12/04/22 12/04/22 12/04/22 Range/Units 15:35 15:35 15:35 WBC 29.78 H (4.8-10.8) K/ul RBC 3.45 L (4.20-5.40) M/uL Hgb 9.1 L (12.0-16.0) g/dl POC Hgb (12.0-16.0) g/dl Hct 29.5 L (37.0-47.0) % POC Hct (37-47) % MCHC 30.8 L (32.0-36.0) g/dL RDW Std Deviation 62.0 H (36.4-46.3) fL RDW Coeff of Hannah 20.0 H (11.5-14.5) % Neut # (Auto) 24.74 H (1.40-6.50) K/uL Lymph # (Auto) 3.82 H (1.2-3.4) K/uL Thayer # (Auto) 0.84 H (0.11-0.59) K/uL Immature Gran # (Auto) 0.25 H (0.01-0.20) K/uL POC pH (7.35-7.45) POC pCO2 (35-46) mmHg POC pO2 (80-95) mmHg POC HCO3 (19-24) quinn/L ABG pH (Temp Correct) (7.35-7.45) ABG pCO2 (Temp Corrct (35-46) mmHg POC ABG O2 Sat (90-95) % Chloride 108 H (98-107) mmol/L Carbon Dioxide 16 L (21-32) mmol/L POC Total CO2 (24-31) mmol/L Anion Gap 12 H (3-11) POC BUN (7-18) mg/dl BUN 24 H (6-23) mg/dl Creatinine 2.24 H (0.6-1.2) mg/dl POC Creatinine (0.6-1.3) mg/dl POC Glucose (70-99) mg/dl Lactate (0.4-2.0) mmol/L Calcium 8.0 L (8.6-10.3) mg/dl POC Ioniz Calcium Chuy (1.12-1.32) mmol/l AST 46 H (13-39) U/L Troponin I High Sens 843.8 H* (0-14) pg/ml B-Natriuretic Peptide 228 H (0-100) pg/ml Procalcitonin (0-0.5) ng/ml Ur Leukocyte Esterase (Negative) U Epithel Cells (Auto) (0-5) /lpf Urine Bacteria (Auto) (Negative) 12/04/22 12/04/22 12/04/22 Range/Units 15:35 15:37 15:47 WBC (4.8-10.8) K/ul RBC (4.20-5.40) M/uL Hgb (12.0-16.0) g/dl POC Hgb 10.2 L 8.8 L (12.0-16.0) g/dl Hct (37.0-47.0) % POC Hct 30 L 26 L (37-47) % MCHC (32.0-36.0) g/dL RDW Std Deviation (36.4-46.3) fL RDW Coeff of Hannah (11.5-14.5) % Neut # (Auto) (1.40-6.50) K/uL Lymph # (Auto) (1.2-3.4) K/uL Thayer # (Auto) (0.11-0.59) K/uL Immature Gran # (Auto) (0.01-0.20) K/uL POC pH (7.35-7.45) POC pCO2 29 L (35-46) mmHg POC pO2 74 L (80-95) mmHg POC HCO3 16 L (19-24) quinn/L ABG pH (Temp Correct) (7.35-7.45) ABG pCO2 (Temp Corrct (35-46) mmHg POC ABG O2 Sat (90-95) % Chloride (98-107) mmol/L Carbon Dioxide (21-32) mmol/L POC Total CO2 17 L 17 L (24-31) mmol/L Anion Gap (3-11) POC BUN 21 H (7-18) mg/dl BUN (6-23) mg/dl Creatinine (0.6-1.2) mg/dl POC Creatinine 2.5 H (0.6-1.3) mg/dl POC Glucose (70-99) mg/dl Lactate (0.4-2.0) mmol/L Calcium (8.6-10.3) mg/dl POC Ioniz Calcium Chuy 0.99 L (1.12-1.32) mmol/l AST (13-39) U/L Troponin I High Sens (0-14) pg/ml B-Natriuretic Peptide (0-100) pg/ml Procalcitonin 1.90 H (0-0.5) ng/ml Ur Leukocyte Esterase (Negative) U Epithel Cells (Auto) (0-5) /lpf Urine Bacteria (Auto) (Negative) 12/04/22 12/04/22 12/04/22 Range/Units 16:13 16:33 19:37 WBC (4.8-10.8) K/ul RBC (4.20-5.40) M/uL Hgb (12.0-16.0) g/dl POC Hgb (12.0-16.0) g/dl Hct (37.0-47.0) % POC Hct (37-47) % MCHC (32.0-36.0) g/dL RDW Std Deviation (36.4-46.3) fL RDW Coeff of Hannah (11.5-14.5) % Neut # (Auto) (1.40-6.50) K/uL Lymph # (Auto) (1.2-3.4) K/uL Thayer # (Auto) (0.11-0.59) K/uL Immature Gran # (Auto) (0.01-0.20) K/uL POC pH (7.35-7.45) POC pCO2 (35-46) mmHg POC pO2 (80-95) mmHg POC HCO3 (19-24) quinn/L ABG pH (Temp Correct) (7.35-7.45) ABG pCO2 (Temp Corrct (35-46) mmHg POC ABG O2 Sat (90-95) % Chloride (98-107) mmol/L Carbon Dioxide (21-32) mmol/L POC Total CO2 (24-31) mmol/L Anion Gap (3-11) POC BUN (7-18) mg/dl BUN (6-23) mg/dl Creatinine (0.6-1.2) mg/dl POC Creatinine (0.6-1.3) mg/dl POC Glucose 280 H (70-99) mg/dl Lactate 4.1 H* (0.4-2.0) mmol/L Calcium (8.6-10.3) mg/dl POC Ioniz Calcium Chuy (1.12-1.32) mmol/l AST (13-39) U/L Troponin I High Sens (0-14) pg/ml B-Natriuretic Peptide (0-100) pg/ml Procalcitonin (0-0.5) ng/ml Ur Leukocyte Esterase Trace H (Negative) U Epithel Cells (Auto) 10-20 H (0-5) /lpf Urine Bacteria (Auto) 1+ H (Negative) 12/04/22 Range/Units 19:41 WBC (4.8-10.8) K/ul RBC (4.20-5.40) M/uL Hgb (12.0-16.0) g/dl POC Hgb 10.2 L (12.0-16.0) g/dl Hct (37.0-47.0) % POC Hct 30 L (37-47) % MCHC (32.0-36.0) g/dL RDW Std Deviation (36.4-46.3) fL RDW Coeff of Hannah (11.5-14.5) % Neut # (Auto) (1.40-6.50) K/uL Lymph # (Auto) (1.2-3.4) K/uL Thayer # (Auto) (0.11-0.59) K/uL Immature Gran # (Auto) (0.01-0.20) K/uL POC pH 7.12 L* (7.35-7.45) POC pCO2 63 H (35-46) mmHg POC pO2 143 H (80-95) mmHg POC HCO3 (19-24) quinn/L ABG pH (Temp Correct) 7.116 L* (7.35-7.45) ABG pCO2 (Temp Corrct 64 H (35-46) mmHg POC ABG O2 Sat 98.0 H (90-95) % Chloride (98-107) mmol/L Carbon Dioxide (21-32) mmol/L POC Total CO2 23 L (24-31) mmol/L Anion Gap (3-11) POC BUN (7-18) mg/dl BUN (6-23) mg/dl Creatinine (0.6-1.2) mg/dl POC Creatinine (0.6-1.3) mg/dl POC Glucose (70-99) mg/dl Lactate (0.4-2.0) mmol/L Calcium (8.6-10.3) mg/dl POC Ioniz Calcium Chuy (1.12-1.32) mmol/l AST (13-39) U/L Troponin I High Sens (0-14) pg/ml B-Natriuretic Peptide (0-100) pg/ml Procalcitonin (0-0.5) ng/ml Ur Leukocyte Esterase (Negative) U Epithel Cells (Auto) (0-5) /lpf Urine Bacteria (Auto) (Negative) Diagnostic Findings Chest X-Ray 12/04/22 15:21 SINGLE VIEW CHEST CLINICAL HISTORY: Atypical chest pain. FINDINGS: An AP, portable, upright chest radiograph is compared to study dated 04/21/2022 and correlated with chest CT dated 03/06/2022. The heart is enlarged. Extensive multifocal airspace opacities are seen throughout both lungs. No large pleural effusion or pneumothorax is seen. The bony thorax is grossly intact. IMPRESSION: 1. Cardiomegaly. 2. Diffuse airspace opacities are seen throughout both lungs. This could repr esent pulmonary edema and/or multifocal pneumonia. Clinical correlation will be required and radiographic follow-up to resolution is recommended. ACT 112: Negative or not required by law. Electronically signed by: Ja Villanueva M.D. 12/04/2022 3:[address] 12/04/22 17:03 CT chest diagnostic wo con CLINICAL HISTORY: hypoxic TECHNIQUE: Multidetector row helical CT of the chest was performed. Coronal and sagittal reformations were obtained. Automated dose lowering techniques and/or adjustment according to patient size were utilized for this exam. CT DOSE: 968.36 mGy.cm Comparison: Comparison is made to CT chest of 822 FINDINGS: Lungs and pleura: Multifocal groundglass and consolidative opacities are seen. No pleural effusions or pneumothorax. Heart and pericardium: Cardiomegaly is seen with biatrial enlargement. Vessels: Severe atherosclerotic changes in the aorta and coronary arteries. Mediastinum and katty: Numerous enlarged mediastinal lymph nodes measure up to 11 mm in diameter. Chest wall and lower neck: An 18 mm thyroid nodule is seen. Abdomen: Unremarkable. Bones: Unremarkable. IMPRESSION: Multifocal groundglass and consolidative opacities compatible with pneumonia. Reactive lymphadenopathy is seen. ACT 112: Negative or not required by law. Electronically signed by: Moi Ring M.D. 12/04/2022 7:03 PM Chest X-Ray 12/04/22 17:15 XR chest 1V portable CLINICAL HISTORY: ett TECHNIQUE: Single frontal radiograph of the chest was obtained. Comparison: Comparison is made to chest radiograph 12/04/2022 FINDINGS: Endotracheal tube terminates 4 cm from the misti. Cardiomegaly is noted. Multiple airspace opacities are again seen. No evidence of pleural effusion or pneumothorax. IMPRESSION: Satisfactory appearance of the endotracheal tube. Redemonstration of pneumonia. ACT 112: Negative or not required by law. Electronically signed by: oMi Ring M.D. 12/04/2022 5:33 PM Medications Administered Home Medications albuterol sulfate 2.5 mg/3 mL (0.083 %) solution for nebulization 2.5 mg inhalation Q4 PRN WHEEZE/COUGH 07/10/21 [History Confirmed 12/04/22] albuterol sulfate 90 mcg/actuation aerosol inhaler 2 puff inhalation Q4 PRN cough or wheezing 07/10/21 [History Confirmed 12/04/22] atorvastatin 80 mg tablet 80 mg PO QAM 07/10/21 [History Confirmed 12/04/22] buspirone 15 mg tablet 15 mg PO AMHS 07/10/21 [History Confirmed 12/04/22] clopidogrel 75 mg tablet 75 mg PO DAILY 07/10/21 [History Confirmed 12/04/22] cyclobenzaprine 10 mg tablet 10 mg PO BID 07/10/21 [History Confirmed 12/04/22] escitalopram oxalate 20 mg tablet 20 mg PO QAM 07/10/21 [History Confirmed 0 12/04/22] levetiracetam 500 mg tablet 500 mg PO AMHS 07/10/21 [History Confirmed 12/04/22] lisinopril 5 mg tablet 5 mg PO QAM 07/10/21 [History Confirmed 12/04/22] medroxyprogesterone 150 mg/mL intramuscular suspension 150 mg IM .Q3MO 07/10/21 [History Confirmed 12/04/22] metformin 1,000 mg tablet 1,000 mg PO BID 07/10/21 [History Confirmed 12/04/22] metoprolol succinate 25 mg tablet,extended release 24 hr 25 mg PO DAILY 07/10/21 [History Confirmed 12/04/22] polyethylene glycol 3350 17 gram oral powder packet (Miralax) 17 g PO DAILY PRN Constipation 07/10/21 [History Confirmed 12/04/22] potassium chloride 20 mEq tablet,extended release(part/cryst) (Klor-Con M) 20 meq PO QAM 07/10/21 [History Confirmed 12/04/22] torsemide 20 mg tablet 20 mg PO AMHS 07/10/21 [History Confirmed 12/04/22] trazodone 50 mg tablet 75 mg PO HS 07/10/21 [History Confirmed 12/04/22] aspirin 81 mg tablet,delayed release 81 mg PO DAILY 03/03/22 [History Confirmed 12/04/22] escitalopram oxalate 10 mg tablet 10 mg PO QAM 03/03/22 [History Confirmed 12/04/22] famotidine 20 mg tablet 20 mg PO BID PRN Heartburn 03/03/22 [History Confirmed 12/04/22] fluticasone furoate 200 mcg-vilanterol 25 mcg/dose inhalation powder (Breo Ellipta) 1 inh inhalation QAM 03/03/22 [History Confirmed 12/04/22] gabapentin 300 mg capsule 300 mg PO TID 03/03/22 [History Confirmed 12/04/22] nitroglycerin 0.4 mg sublingual tablet 0.4 mg sublingual DAILY PRN Chest Pain 03/03/22 [History Confirmed 12/04/22] buprenorphine 8 mg-naloxone 2 mg sublingual film 1 film sublingual DAILY 12/04/22 [History Confirmed 12/04/22] Active Medications Albuterol (Albuterol 0.083% Nebu Soln 3 Ml Vial) 2.5 mg INH Q6R WILMA; Protocol Stop: 01/03/23 19:44 Last Admin: 12/04/22 20:05 Dose: 2.5 mg Atorvastatin Calcium (Atorvastatin 40 Mg Tab) 80 mg PO QAM WILMA Stop: 01/04/23 08:59 Fentanyl Citrate (Fentanyl Bolus From Bag) 50 mcg IV Q60M PRN PRN Reason: Pain or Agitation Stop: 12/18/22 17:21 Heparin Sodium (Porcine) (Heparin Sod 5,000 Unit/0.5 Ml Vial) 5,000 units SQ Q8H WILMA Stop: 01/03/23 18:43 Norepinephrine Bitartrate (Levophed/D5w) 4 mg in 250 mls @ 0 mls/hr IV .Q0M WILMA; Protocol Stop: 01/03/23 15:59 Last Titration: 12/04/22 19:19 Dose: 0 mcg/kg/min, 0 mls/hr Fentanyl Citrate (Fentanyl Citrate) 2,500 mcg in 250 mls @ 2.5 mls/hr IV .Q96H WILMA; Protocol Stop: 12/18/22 17:29 Last Titration: 12/04/22 19:19 Dose: 25 mcg/hr, 2.5 mls/hr Propofol (Diprivan) 1,000 mg in 100 mls @ 10.2 mls/hr IV .[id number] [facility]; Protocol Stop: 12/07/22 18:43 Last Titration: 12/04/22 19:19 Dose: 20 mcg/kg/min, 10.2 mls/hr Piperacillin Sod/Tazobactam (Sod 4.5 gm/ Dextrose) 120 mls @ 30 mls/hr IV Q8H [facility]; Protocol Stop: 12/11/22 01:59 Vancomycin HCl 2,000 mg/ (Sodium Chloride) 540 mls @ 200 mls/hr IV NOW ONE Stop: 12/04/22 22:41 Parenteral Electrolytes (Plasma-Lyte A Ph 7.4) 1,000 mls @ 100 mls/hr IV .Q10H [facility] Stop: 01/03/23 19:59 Piperacillin Sod/Tazobactam (Sod 4.5 gm/ Dextrose) 120 mls @ 240 mls/hr IV NOW ONE; Protocol Stop: 12/04/22 20:29 Miscellaneous (Icu Protocol For Hyperglycemia) 1 each N/A ACHS WILMA Stop: 12/06/22 20:59 Miscellaneous Information (Vancomycin Consult Active) 1 each N/A UD PRN PRN Reason: Consult Stop: 01/03/23 19:41 Polyethylene Glycol (Polyethylene (Miralax) 17 Gm Pack) 17 gm PO DAILY PRN PRN Reason: Constipation Stop: 01/03/23 18:43 Propofol (Propofol Bolus From Bag) 20 mg IV Q5M PRN PRN Reason: Sedation Stop: 12/07/22 18:43 ECG Additional Comments: Normal sinus rhythm Confirmed by Liu Harrington ([id number]) on 12/04/2022 5:36:14 PM Coding Level of Care Code 02672 CRITICAL CARE 1ST 30-74M Diagnoses Acute on chronic respiratory failure with hypoxia J96.21 Multifocal pneumonia J18.9 Chronic diastolic CHF (congestive heart failure) I50.32 HLD (hyperlipidemia) E78.5 HTN (hypertension) I10 Aortic stenosis I35.0 Diabetes mellitus, type 2 E11.8 Diabetes mellitus complication status: with unspecified complications Diabetes mellitus assisted insulin use: without firestopper technician use Coronary artery disease I25.10 Asthma J45.909 (7) Diabetes mellitus, type 2 Diabetes mellitus complication status: with unspecified complications Diabetes mellitus firestopper technician insulin use: without assisted use Qualified Code(s): E11.8 - Type 2 diabetes mellitus with unspecified complications
--- NOTE | 2022-12-04 19:52 | Procedure Note ---
Procedure Note Date of Service December 04, 2022 Note ARTERIAL LINE PROCEDURE NOTE: Procedure: Arterial Line Placement Proceduralist: Vladimir FINCH ([facility] Attending: Dr. ABBASI Indication: Monitoring on Pressors, frequent lab draws Anesthesia: [x]None Consent was implied as she is full code, urgent need and no family immediately available A time-out was completed verifying correct patient, procedure, site, positioning. Allens test was performed to ensure adequate perfusion. Patients LEFT wrist was prepped and draped in the usual sterile fashion. Ultrasound guidance was used to aid needle placement. A 20g Arrow arterial line was introduced into the LEFT RADIAL artery. Brisk Blood turn was noted, wire was threaded without resistance, and catheter was threaded. Needle was then removed with appropriate blood return, pressure tubing was connected and Good arterial waveform was observed. The patient tolerated the procedure well with no immediate complications noted. Blood Loss: Minimal Complications: None Procedural Ultrasound Guidance: Procedure Date: 12/04/22 Indication: Direct Visualization for hemodyanmic monitoring Attending: Dr. ABBASI Artery Identified: YES Direct Visualization of catheter into artery: YES Complications: NONE Patient tolerated procedure: WELL Images not saved to EMR secondary to urgent need Coding CPT Codes Tubes, Drains, and Vasc Access - Tubes, Drains, and Vasc Access: [id number] Arterial Cath/Cannulation Sampling/Monitoring/Transfusion ([id number]) Tubes, Drains, and Vasc Access - Tubes, Drains, and Vasc Access: [id number] Ultrasound Guidance For Vascular ([id number]) [facility] [place] (Charges) Tubes, Drains, and Vasc Access Procedure 1: Tubes, Drains, and Vasc Access: [id number] Arterial Cath/Cannulation Sampling/Monitoring/Transfusion Procedure 2: Tubes, Drains, and Vasc Access: [id number] Ultrasound Guidance For Vascular
[2022-12-04 19:56] LABS: iSTAT Allen Test Pass; iSTAT Art Bld Gas pCO2 Correct 64 mmHg (35-46); iSTAT Art Bld Gas pH Corrected 7.116 (7.35-7.45); iSTAT Arterial Blood Gas HCO3 21 meg/L (19-24); iSTAT Arterial Blood Gas pCO2 63 mmHg (35-46); iSTAT Arterial Blood Gas pH 7.12 (7.35-7.45); iSTAT Arterial Blood Gas pO2 143 mmHg (80-95); iSTAT Arterial Blood Gas pO2 C 146; iSTAT Carbon Dioxide 23 mmol/L (24-31); iSTAT FiO2 60 %; iSTAT Hematocrit 30 % (37-47); iSTAT Hemoglobin 10.2 g/dl (12.0-16.0); iSTAT Potassium 4.4 mmol/L (3.3-5.0); iSTAT Site Art Line; iSTAT Sodium 137 mmol/L (135-144)
[2022-12-04] MEDS ORDERED: VANCOMYCIN HCL 2,000 MG in SODIUM CHLORIDE 0.9% 500 ML IV ONE (20:00)
[2022-12-04] MEDS ORDERED: PLASMA-LYTE A 1,000 ML IV SCH (20:00)
[2022-12-04] MEDS ORDERED: PIPERACILLIN/TAZOBACTAM 4.5 GM in DEXTROSE 5% 100 ML IV ONE (20:00)
[2022-12-04] MEDS ORDERED: CALCIUM CHLORIDE 10% 1,000 MG in DEXTROSE 5% 50 ML IV ONE (20:00)
[2022-12-04] MEDS: ALBUTEROL 0.083% NEBU SOLN 3 ML VIAL INH SCH (20:05)
[2022-12-04] MEDS: HEPARIN SOD 5,000 UNIT/0.5 ML VIAL SQ SCH (20:20)
[2022-12-04 20:29] LABS: BUN Creatinine Ratio 12.4 (10-20); Calcium 7.6 mg/dl (8.6-10.3); Creatinine Clr Calc Pharmacy 35.3 ml/min; Est GFR (African American) 32.4 ml/min; Est GFR (Non-African American) 27.9 ml/min; Magnesium 1.2 mg/dl (1.7-2.4); Phosphorus 5.6 mg/dl (2.5-4.9); Potassium 4.6 mmol/L (3.5-5.1)
--- NOTE | 2022-12-04 20:29 | Procedure Note ---
Procedure Note Date of Service December 04, 2022 Note BRONCHOSCOPY - Procedure: Flexible Bronchoscopy Attending/[employer] Buffer: Vladimir FINCH ([facility]-) Anesthetic/Sedation: Intubated and sedated with Fentanyl and Propofol Indication: Sputum sample and evaluation of airways for hemorrhage SCOPE: Glidescope Bflex 5.8 Consent was implied as patient is intubated and full code. No immediate family immediately available for consent A time-out was completed verifying correct patient, procedure, site, positioning, and implant(s) or special equipment if applicable. Procedure: Bronchoscope was advanced down ETT, misti visualized- sharp. The right side was entered noting pink non-inflamed airways- thick white mucous noted, saline administered and suctioned back moderate amount of secretions, no blood noted. RML was entered next as well noting thick secretions, saline was again administered with suctioning back thick mucoid secretions again without blood. The scope was then withdrawn back to the misti- the left side was then entered noting thick mucoid secretions- saline was instilled and sputum sample obtained, again non bleeding. This was repeated for LLL with similar findings. The scope was then withdrawn noting good placement above the misti. The patient tolerated the procedure well. Post procedural CXR negative for pneumothorax Findings: Main Misti - sharp LEFT Mainstem Bronchus: CHARIS - pink without blood, noted mucoid sputum LLL - pink without blood, noted mucoid sputum RIGHT Mainstem Bronchus: RUL: pink without blood, noted mucoid sputum RIGHT Bronchus Intermedius: RML - pink without blood, noted mucoid sputum RLL - pink without blood, noted mucoid sputum Specimens: BAL - 15 mL x [RUL,RML, CHARIS, LLL], Complications: NONE immediate Impression: No bleeding making DAH unlikely- samples for cytology and atypical organisms Plan: Sent BAL for Culture & Sensitivities, Gram Stain, PJP, Eosinophil count Coding CPT Codes Pulmonary/Thoracic - Pulmonary and Thoracic: 99250 Bronchoscopy, clear airways ([id number]) [facility] [place] Codes (Charges) Pulmonary/Thoracic Procedure 1: Pulmonary and Thoracic: 77114 Bronchoscopy, clear airways
[2022-12-04] MEDS: PROPOFOL BOLUS FROM BAG IV PRN ×4 (20:31→22:22)
[2022-12-04] MEDS: fentaNYL BOLUS from BAG IV PRN ×5 (20:32→22:22)
[2022-12-04] MEDS ORDERED: PHARMACY GLYCEMIC MGMT CONSULT PRN (20:35)
[2022-12-04] MEDS ORDERED: INSULIN ASPART PER UNIT CHARGE SC STA (20:57)
[2022-12-04] MEDS ORDERED: busPIRone 15 MG TAB NG SCH (21:00)
[2022-12-04] MEDS ORDERED: CARBOHYDRATES FOR HYPOGLYCEMIA PO PRN (21:00)
[2022-12-04] MEDS ORDERED: LANTUS PER UNIT CHARGE SC ONE (21:00)
[2022-12-04] MEDS ORDERED: GLUCOSE 10 TAB/TUBE PO PRN (21:00)
[2022-12-04] MEDS ORDERED: GLUCOSE 40% GEL 15 GM TUBE PO PRN (21:00)
[2022-12-04] MEDS ORDERED: DEXTROSE 50% 50 ML SYRINGE IV PRN (21:00)
[2022-12-04] MEDS ORDERED: ICU Protocol for HYPERglycemia SCH (21:00)
[2022-12-04] MEDS ORDERED: GLUCAGON FOR INJ 1 MG VIAL IM PRN (21:00)
[2022-12-04 21:10] LABS: Amphetamines+Metham, Urine Neg (Neg); Barbiturates, Urine Neg (Neg); Benzodiazepine, Urine Neg (Neg); Cocaine, Urine Neg (Neg); MDMA (Ecstacy), Urine Neg (Neg); Methadone, Urine Neg (Neg); Opiate, Urine Neg (Neg); Phencyclidine, Urine Neg (Neg)
--- NOTE | 2022-12-04 21:18 | Pharmacy Report ---
Pharmacy PK ABX Note - Date of Service December 04, 2022 - Assessment and Plan Assessment 42 year old F receiving IV Vancomycin and Zosyn for treatment of sepsis secondary to pneumonia. Day # 1 of antimicrobial therapy. Plan Vancomycin * Loading dose: 2000 mg (~23.5mg/kg) IV x 1 * Due to AJIT/unstable renal function, unable to determine optimal maintenance regimen at this time. Will dose Vancomycin prn based on random levels until renal function stabilizes. MRSA nasal swab pending. * Random level ordered for: 12/05/22 Pharmacy will continue to follow and will adjust dose/frequency as necessary. Thank you. Pharmacy has transitioned to AUC monitoring for vancomycin. AUC/YENNI is the preferred PK/PD target and is associated with decreased risk of nephrotoxicity compared to traditional trough targets.
[2022-12-04] MEDS ORDERED: ALBUTEROL 0.083% NEBU SOLN 3 ML VIAL NEB PRN (21:27)
[2022-12-04] MEDS: methylPREDNISolone 40 MG in SYRINGE 0 ML IV SCH (21:30)
[2022-12-04] MEDS: MAGNESIUM SULFATE / D5W 1 GM/100 ML BAG IV SCH ×2 (21:33→23:30)
[2022-12-04] MEDS ORDERED: MIDAZOLAM HCL 5 MG/ML 1 ML VIAL IV STA (21:55)
[2022-12-04 22:20] LABS: iSTAT Allen Test Pass; iSTAT Art Bld Gas pCO2 Correct 42 mmHg (35-46); iSTAT Art Bld Gas pH Corrected 7.259 (7.35-7.45); iSTAT Arterial Blood Gas HCO3 19 meg/L (19-24); iSTAT Arterial Blood Gas pCO2 42 mmHg (35-46); iSTAT Arterial Blood Gas pH 7.26 (7.35-7.45); iSTAT Arterial Blood Gas pO2 157 mmHg (80-95); iSTAT Arterial Blood Gas pO2 C 157; iSTAT Carbon Dioxide 20 mmol/L (24-31); iSTAT FiO2 80 %; iSTAT Hematocrit 26 % (37-47); iSTAT Hemoglobin 8.8 g/dl (12.0-16.0); iSTAT Potassium 4.1 mmol/L (3.3-5.0); iSTAT Site Art Line; iSTAT Sodium 135 mmol/L (135-144)
--- NOTE | 2022-12-04 22:41 | XRay Report ---
SINGLE VIEW CHEST CLINICAL HISTORY: Status post bronchoscopy. Respiratory failure. FINDINGS: An AP, portable, upright chest radiograph is compared to chest x-rays and chest CT performe d earlier the same day 12/04/2022. An endotracheal tube, an enteric tube, and a right internal jugular central venous catheter are unchanged in position. The heart is enlarged. Extensive/diffuse multifoca l airspace opacities are again seen throughout both lungs. Small pleural effusions are suspected. No pneumothorax is seen. The bony thorax is grossly intact. IMPRESSION: 1. Stable lines and tubes. 2. No pneumothorax is seen post procedure. 3. Diffuse/multifocal airspace opacities are again seen throughout both lungs. This could represent p ulmonary edema, ARDS, and/or multifocal pneumonia. Clinical correlation will be required and radiogra [facility] follow-up to resolution is recommended. 4. Cardiomegaly. 5. Small pleural effusions. ACT 112: Negative or not required by law. Electronically signed by: Ja Villanueva M.D. 12/04/2022 10:39 PM
[2022-12-04] MEDS ORDERED: VECURONIUM BROMIDE 10 MG VIAL IV STA (22:53)
[2022-12-04 23:11] LABS: Iron < 10 mcg/dl (35-150); Unsaturated Iron Binding Cap 300 mcg/dl (155-355)
[2022-12-04 23:11] LABS: BUN Creatinine Ratio 13.1 (10-20); Calcium 8.1 mg/dl (8.6-10.3); Est GFR (African American) 33.1 ml/min; Est GFR (Non-African American) 28.6 ml/min; Potassium 3.9 mmol/L (3.5-5.1)
[2022-12-04] MEDS: fentaNYL citrate 2,500 MCG/250 ML BAG IV SCH (23:16)
[2022-12-04 23:17] LABS: Troponin I High Sensitivity 751.7 pg/ml (0-14)
[2022-12-05] MEDS ORDERED: SULFAMETHOXAZOLE/TRIMETHOPRIM DS 800/160MG TAB PO SCH
[2022-12-05] MEDS ORDERED: INSULIN ASPART PER UNIT CHARGE SC SCH
[2022-12-05] MEDS ORDERED: VECURONIUM BROMIDE 10 MG VIAL IV PRN ×2 (00:16→03:14)
[2022-12-05] MEDS: MAGNESIUM SULFATE / D5W 1 GM/100 ML BAG IV SCH (01:31)
[2022-12-05] MEDS: PIPERACILLIN/TAZOBACTAM 4.5 GM in DEXTROSE 5% 100 ML IV SCH ×3 (01:34→17:51)
[2022-12-05] MEDS: MIDAZOLAM HCL 1 MG/ML 2ML VIAL IV PRN ×2 (03:02→05:12)
[2022-12-05] MEDS: propofoL 1,000 MG/100 ML VIAL IV SCH ×3 (03:06→13:36)
[2022-12-05] MEDS: HEPARIN SOD 5,000 UNIT/0.5 ML VIAL SQ SCH ×3 (03:07→18:12)
[2022-12-05] MEDS: fentaNYL BOLUS from BAG IV PRN ×4 (03:07→17:57)
[2022-12-05 04:00] LABS: iSTAT Allen Test Pass; iSTAT Art Bld Gas pCO2 Correct 47 mmHg (35-46); iSTAT Art Bld Gas pH Corrected 7.257 (7.35-7.45); iSTAT Arterial Blood Gas HCO3 21 meg/L (19-24); iSTAT Arterial Blood Gas pCO2 47 mmHg (35-46); iSTAT Arterial Blood Gas pH 7.26 (7.35-7.45); iSTAT Arterial Blood Gas pO2 75 mmHg (80-95); iSTAT Arterial Blood Gas pO2 C 75; iSTAT Carbon Dioxide 22 mmol/L (24-31); iSTAT Hematocrit 25 % (37-47); iSTAT Hemoglobin 8.5 g/dl (12.0-16.0); iSTAT Potassium 3.7 mmol/L (3.3-5.0); iSTAT Site Art Line; iSTAT Sodium 137 mmol/L (135-144)
[2022-12-05] MEDS: INSULIN ASPART PER UNIT CHARGE SC SCH ×6 (04:02→23:43)
[2022-12-05] MEDS: SULFAMETHOXAZOLE/TRIMETHOPRIM 200MG/40MG/5ML SUSP PO SCH ×4 (05:03→23:37)
[2022-12-05 05:07] LABS: Hematocrit (blood only) 25.1 % (37.0-47.0); Hemoglobin 7.9 g/dl (12.0-16.0); Mean Corpuscular Hemoglobin 26.7 pg (25.0-34.0); Mean Corpuscular Hgb Conc 31.5 g/dL (32.0-36.0); Mean Corpuscular Volume 84.8 fL (80.0-100.0); Mean Platelet Volume 10.1 fL (9.4-12.4); Platelet Count 244 K/uL (130-400); RDW Coefficient of Variation 19.5 % (11.5-14.5); RDW Standard Deviation 59.5 fL (36.4-46.3); Red Blood Count 2.96 M/uL (4.20-5.40); White Blood Count 21.86 K/ul (4.8-10.8)
[2022-12-05 05:19] LABS: Magnesium 2.3 mg/dl (1.7-2.4)
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
[2022-12-05 05:39] LABS: Ferritin 101.1 ng/ml (8-388)
[2022-12-05] MEDS ORDERED: IOVERSOL 350 MG 125mL Prefilled Syringe IV ONE (05:45)
[2022-12-05] MEDS ORDERED: FUROSEMIDE INJ 20 MG/2 ML VIAL IV ONE (06:00)
[2022-12-05 06:18] LABS: Basophils # (auto) 0.02 K/uL (0-0.2); Basophils % (auto) 0.1 %; Hypochromasia Present; Immature Granulocytes # (auto) 0.19 K/uL (0.01-0.20); Immature Granulocytes % (auto) 0.9 %; Lymphocytes # (auto) 1.26 K/uL (1.2-3.4); Lymphocytes % (auto) 5.8 %; Monocytes # (auto) 0.41 K/uL (0.11-0.59); Monocytes % (auto) 1.9 %; Neutrophils # (auto) 19.98 K/uL (1.40-6.50); Neutrophils % (auto) 91.3 %
[2022-12-05 06:29] LABS: BUN Creatinine Ratio 13.9 (10-20); Calcium 7.9 mg/dl (8.6-10.3); Creatinine Clr Calc Pharmacy 38.7 ml/min; Est GFR (African American) 37.2 ml/min; Est GFR (Non-African American) 32.1 ml/min; Potassium 3.7 mmol/L (3.5-5.1)
[2022-12-05 06:31] LABS: Folate (Folic Acid),Ser orPlas 11.55 ng/ml (>5.38)
[2022-12-05 06:45] LABS: Troponin I High Sensitivity 754.3 pg/ml (0-14)
[2022-12-05] MEDS ORDERED: POTASSIUM CHLORIDE 20 MEQ/15 ML UDC PO STA (06:54)
--- NOTE | 2022-12-05 06:54 | CT Scan Report ---
HEAD CTA HISTORY: unequal pupils TECHNIQUE: Multiaxial CT images of the head were performed both before and after the intravenous admi nistration of contrast to evaluate the major cerebral vessels. 3D/MIP images were also obtained. Sag ittal and coronal reformats were reviewed. A dose lowering technique was utilized adhering to the pedro pablo Baltazar. COMPARISON: Head CT 03/07/2022. FINDINGS: There is no mass, hematoma, midline shift, or acute infarct. Visualized intracranial event marketing intern al carotid arteries, distal vertebral arteries, and basilar artery are widely patent. There is no sig nificant stenosis, occlusion, or aneurysm seen within the bilateral ACAs, MCAs, or zinc furnace charger. Partially vi sualized endotracheal tube and nasogastric tube. The major dural venous sinuses are patent. Mild calc ified plaque within the bilateral carotid siphons. IMPRESSION: 1. No acute intracranial abnormality. 2. No significant stenosis, occlusion, or aneurysm within the [place]. ACT 112: Negative or not required by law. Electronically signed by: Arnol Kenney M.D. 12/05/2022 6:52 AM
[2022-12-05] MEDS: ALBUTEROL 0.083% NEBU SOLN 3 ML VIAL INH SCH ×4 (07:00→19:20)
--- NOTE | 2022-12-05 07:28 | Cardiology Consultation ---
Date of Consultation December 05, 2022 Assessment & Plan (1) Septic shock: (2) Acute on chronic respiratory failure with hypoxia: (3) Multifocal pneumonia: (4) Elevated troponin: Plan Please refer to physician addendum regarding further information as well as full plan of care. Plan 42 yo woman presenting with severe Hypoxia (Acute) + Hypotension + Troponin EKG - no ST segment elevations CXR - bilateral infiltrates Hypotension noted - Rx transiently with Levophed for BP support Marked Leukocytosis Significant Metabolic Acidosis No major hypercarbia Bedside ECHO performed. LVEF 65% No dense wall motion abnormalities noted No major valvular stenotic or regurgitant lesions RV was not markedly dilated RV function was WNL No major TR IVC was not dilated No significant Pericardial Effusion noted. Patient is being treated for Infection with broad spectrum ABX Metabolic acidosis improving Lactate back to normal - 1.6 Creat appears to be c/w AJIT No chemical evidence of shock liver Pressor Support - as needed Currently MAP >[address] of Chest - c/w PNA Continue Broad Spectrum ABX Troponin elevation appears to be secondary to demand + Hx of Stents Please continue ASA 81 mg po per day Please continue Plavix 75 mg po per day Statin may be held and restarted after acute issues resolve K+ gola 4.5-5 Mag++ goal >2 Continue with aggressive supportive care Dylon Sheppard Supervising Physician Co-Signing Physician Notes Attending Staff: Pt was seen and evaluated with [facility] staff. Concur with observations and plans. 52 min spent addressing challenges and advancing daily plan of care. Dylon Shpepard History of Present Illness Reason for Consultation: Hypoxic resp failure and septic shock Requesting Physician: Jay fernandez Attending Physician: Zina Smith DO History of Present Illness Medically complex 42-year-old female who initially presented to [facility] emergency department for evaluation of progressive shortness of breath. Found to be in hypoxic respiratory secondary to multifocal pneumonia failure with septic shock (pulmonary source). Patient required high level of supplemental oxygen therapy on presentation and was ultimately intubated. Treatment with nebulizer, IV steroids, and IV antibiotics started. Patient was hypotensive and placed on Levophed infusion. -ECHO performed in the ED in the setting of elevated HsCTNI without ischemic ECG changes- was without reported RWMA or other valve abnormalities- of note aortic valve not visualized well. -Prior Echo dated 03/2022 showed an hyperdynamic LV EF of 60 to 65% without wall motion abnormalities. Tricuspid valve lesion no longer visualized and TR resolved. Mild AI with moderate aortic stenosis however aortic valve poorly visualized. -HS tropinin elevated- (843.8>>751.7>>754.3) -EKG-sinus tachycardia without acute ST segment changes suggestive of ischemia Primary outpatient Personal Injury Paralegal: Dr. Gonzales Cardiac problems 1. Premature atherosclerotic coronary disease s/p 2-vessel coronary intervention 10/2016 receiving ROJAS to the ramus intermedius and distal circumflex for NTEMI, Repeat catheterization 02/23/2020, s/p PCI with ROJAS to the RCA PDA on 02/23/20 2. Congenitally abnormal aortic valve with moderate aortic stenosis and +1 aortic regurgitation. 3. Type 2 diabetes mellitus with diabetic neuropathy 4. Hypertension. 5. Hyperlipidemia. 6. Recurrent soft tissue infections. 7. Chronic hepatitis-C 8. Opioid dependence, polysubstance abuse on chronic Suboxone 9. Vitamin-D deficiency 10. Chronic hypoxic respiratory failure/COPD, following with Pulmonary. Chronic supplemental home oxygen, 3 L. 11. 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 Seizure disorder Allergies Allergy/AdvReac Type Severity Reaction Status Date / Time lidocaine Allergy Intermediate HIVES Verified 07/10/21 21:33 procaine Allergy Intermediate HIVES Verified 07/10/21 21:33 Penicillins Allergy Mild HAD NO Verified 07/10/21 21:33 PROBLEM WITH ZOSYN strawberry Allergy Mild HIVES Verified 07/10/21 21:33 cephalexin AdvReac Intermediate YEAST Verified 07/10/21 21:33 INFECTIONS tramadol AdvReac Intermediate SEIZURES Verified 07/10/21 21:33 azithromycin AdvReac Mild STOMACH Verified 07/10/21 21:33 PAIN Covid vaccine AdvReac Severe stopped Uncoded 04/21/22 23:21 breathing next day Home Medications Medication Instructions Recorded Confirmed Type albuterol sulfate 2.5 mg/3 mL 2.5 mg inhalation Q4 PRN 07/10/21 12/04/22 History (0.083 %) solution for nebulization WHEEZE/COUGH albuterol sulfate 90 mcg/actuation 2 puff inhalation Q4 PRN cough or 07/10/21 12/04/22 History aerosol inhaler wheezing atorvastatin 80 mg tablet 80 mg PO QAM 07/10/21 12/04/22 History buspirone 15 mg tablet 15 mg PO AMHS 07/10/21 12/04/22 History clopidogrel 75 mg tablet 75 mg PO DAILY 07/10/21 12/04/22 History cyclobenzaprine 10 mg tablet 10 mg PO BID 07/10/21 12/04/22 History escitalopram oxalate 20 mg tablet 20 mg PO QAM 07/10/21 12/04/22 History levetiracetam 500 mg tablet 500 mg PO AMHS 07/10/21 12/04/22 History lisinopril 5 mg tablet 5 mg PO QAM 07/10/21 12/04/22 History medroxyprogesterone 150 mg/mL 150 mg IM .Q3MO 07/10/21 12/04/22 History intramuscular suspension metformin 1,000 mg tablet 1,000 mg PO BID 07/10/21 12/04/22 History metoprolol succinate 25 mg 25 mg PO DAILY 07/10/21 12/04/22 History tablet,extended release 24 hr polyethylene glycol 3350 17 gram 17 g PO DAILY PRN Constipation 07/10/21 12/04/22 History oral powder packet (Miralax) potassium chloride 20 mEq 20 meq PO QAM 07/10/21 12/04/22 History tablet,extended release(part/cryst) (Klor-Con M) torsemide 20 mg tablet 20 mg PO AMHS 07/10/21 12/04/22 History trazodone 50 mg tablet 75 mg PO HS 07/10/21 12/04/22 History aspirin 81 mg tablet,delayed 81 mg PO DAILY 03/03/22 12/04/22 History release escitalopram oxalate 10 mg tablet 10 mg PO QAM 03/03/22 12/04/22 History famotidine 20 mg tablet 20 mg PO BID PRN Heartburn 03/03/22 12/04/22 History fluticasone furoate 200 1 inh inhalation QA 03/03/22 12/04/22 History mcg-vilanterol 25 mcg/dose inhalation powder (Breo Ellipta) gabapentin 300 mg capsule 300 mg PO TID 03/03/22 12/04/22 History nitroglycerin 0.4 mg sublingual 0.4 mg sublingual DAILY PRN Chest 03/03/22 12/04/22 History tablet Pain buprenorphine 8 mg-naloxone 2 mg 1 film sublingual DAILY 12/04/22 12/04/22 History sublingual film Patient History Medical History Anemia, iron deficiency Aortic regurgitation Aortic stenosis Asthma Asthma exacerbation Cannabis abuse Chronic diastolic CHF (congestive heart failure) Coronary artery disease Premature atherosclerotic coronary disease s/p 2-vessel coronary intervention 10/2016 receiving ROJAS to the ramus intermedius and distal circumflex for NTEMI, Repeat catheterization 02/23/2020, s/p PCI with ROJAS to the RCA PDA on 02/23/20 Depression Diabetes mellitus, type 2 GERD (gastroesophageal reflux disease) Hepatitis C "Antibiotic screen positive, quantitative RNA positive 08/30/17" Hepatosplenomegaly History of drug abuse History of DVT (deep vein thrombosis) History of renal calculi Hx of drug abuse Hypertension Methamphetamine abuse Opiate abuse, continuous Polysubstance abuse Seizure disorder Surgical History History of cardiac cath 2016- 1 ROJAS to ramus, 2 ROJAS to L circumflex. 40-50% plaque to LAD 2018- distal disease (80%) within PDA History of carpal tunnel surgery History of lumbar spinal fusion Hx of tonsillectomy S/P coronary artery stent placement Status post cholecystectomy Family History Other Diabetes Heart disease Hypertension Kidney stones Seizures Social History Smoking Status: Heavy tobacco smoker Tobacco Type: Cigarettes Cigarettes Per Day: <20; Second Hand Exposure: Yes; Do You Dip or Chew Tobacco: No; Hx Alcohol Use: Yes Alcohol type: beer, wine and hard liquor Hx Substance Use: Yes Non-Prescribed Medications: Heroin, IV Drugs and Methamphetamines Last Used Substance: Unknown Last Used Substance Other:: 4 years ago Substance Use Type Other:: 3 years drug free per record Preferred Language: Icelandic Communication Ability: Impaired Communication Ability Comment: Patient is intubated and sedated Visual Impairment: No Limitations Hearing Ability: Normal Archery Equipment Hay Sorter Required: No Beliefs That Will Affect Care: None marital status: Single Current Living Situation: Significant Other Current Living Situation Comment: Unknown due to pt condition How many Children do You have: 1 Feels Safe at Home: Yes Assistive Devices: Walker Physical Exam Physical Exam: Obese Intubated and sedated JVP difficult to assess S1S2 tachy 2/6 systolic murmur + Abdomen -soft No LE edema Warm and perfusing Results & Data Vital Signs (Past 12 Hours) Vital Signs Temp Pulse Pulse Resp BP BP Pulse Ox 12/05/22 06:00 36.9 C 99 H 25 H 96 12/05/22 05:51 100/59 L 12/05/22 05:51 101 H 29 H 95 12/05/22 05:00 36.9 C 103 H 22 94 12/05/22 05:00 110/68 12/05/22 04:00 36.8 C 109 H 24 94 12/05/22 04:00 110/57 L 12/05/22 03:42 12/05/22 03:40 12/05/22 03:37 111 H 111/51 L 12/05/22 02:49 109 H 29 H 92 12/05/22 02:30 36.7 C 109 H 27 H 93 12/05/22 02:00 36.8 C 110 H 26 H 92 12/05/22 02:00 101/64 12/05/22 01:30 36.8 C 111 H 26 H 93 12/05/22 01:00 36.9 C 113 H 26 H 93 12/05/22 01:00 103/64 12/05/22 00:30 116 H 23 94 12/05/22 00:00 36.9 C 116 H 21 94 12/05/22 00:00 117/58 L 12/04/22 23:30 113 H 21 93 12/04/22 23:00 108 H 30 H 93 12/04/22 23:00 112/60 12/05/22 00:00 12/05/22 00:32 26 H 12/05/22 00:00 12/05/22 00:00 108 H 12/04/22 22:57 108 H 34 H 92 12/04/22 22:50 36.9 C 108 H 35 H 91 12/04/22 22:40 109 H 35 H 87 L 12/04/22 22:30 109 H 31 H 87 L 12/04/22 22:20 111 H 39 H 89 L 12/04/22 22:10 112 H 40 H 90 12/04/22 22:00 112 H 40 H 100 12/04/22 22:00 113/71 12/04/22 21:50 113 H 39 H 94 12/04/22 21:40 114 H 36 H 93 12/04/22 20:00 12/04/22 20:00 12/04/22 21:30 115 H 35 H 92 12/04/22 21:00 118 H 35 H 91 12/04/22 21:00 109/51 L 12/04/22 20:30 122 H 27 H 93 12/04/22 20:05 113/62 12/04/22 20:05 123 H 29 H 92 12/04/22 20:00 124 H 29 H 92 12/04/22 20:00 112/70 12/04/22 19:55 112/60 12/04/22 19:55 125 H 29 H 87 L 12/04/22 19:50 126 H 28 H 89 L 12/04/22 19:50 112/61 12/04/22 19:45 113/67 12/04/22 19:45 126 H 26 H 91 12/04/22 19:41 98/60 L 12/04/22 19:41 126 H 25 H 97 12/04/22 19:35 126 H 24 97 12/04/22 19:35 107/68 12/04/22 19:30 127 H 24 97 12/04/22 19:30 105/57 L 12/04/22 19:25 103/70 12/04/22 19:20 103/61 12/04/22 19:15 37.4 C 108/67 12/04/22 21:15 12/04/22 20:07 123 H 28 H 94 12/04/22 20:07 123 H 28 H 92 12/04/22 19:54 135 H 122/75 92 O2 Del Method FiO2 12/05/22 06:00 12/05/22 05:51 12/05/22 05:51 12/05/22 05:00 12/05/22 05:00 12/05/22 04:00 12/05/22 04:00 12/05/22 03:42 Mechanical Vent 12/05/22 03:40 55 12/05/22 03:37 12/05/22 02:49 55 12/05/22 02:30 12/05/22 02:00 12/05/22 02:00 12/05/22 01:30 Mechanical Vent 55 12/05/22 01:00 12/05/22 01:00 12/05/22 00:30 12/05/22 00:00 12/05/22 00:00 12/04/22 23:30 12/04/22 23:00 12/04/22 23:00 12/05/22 00:00 Mechanical Vent 12/05/22 00:32 55 12/05/22 00:00 55 12/05/22 00:00 12/04/22 22:57 55 12/04/22 22:50 12/04/22 22:40 12/04/22 22:30 12/04/22 22:20 12/04/22 22:10 12/04/22 22:00 12/04/22 22:00 12/04/22 21:50 12/04/22 21:40 12/04/22 20:00 Mechanical Vent 12/04/22 20:00 50 12/04/22 21:30 Mechanical Vent 80 12/04/22 21:00 12/04/22 21:00 12/04/22 20:30 12/04/22 20:05 12/04/22 20:05 12/04/22 20:00 12/04/22 20:00 12/04/22 19:55 12/04/22 19:55 12/04/22 19:50 12/04/22 19:50 12/04/22 19:45 12/04/22 19:45 12/04/22 19:41 12/04/22 19:41 12/04/22 19:35 12/04/22 19:35 12/04/22 19:30 12/04/22 19:30 12/04/22 19:25 12/04/22 19:20 12/04/22 19:15 12/04/22 21:15 Mechanical Vent 12/04/22 20:07 Mechanical Vent 50 12/04/22 20:07 50 12/04/22 19:54 Mechanical Vent 80 Laboratory Results Cardiac Enzymes 12/04/22 12/04/22 12/04/22 Range/Units 15:35 15:35 21:00 AST 46 H (13-39) U/L Lactate Dehydrogenase 843 H (86-244) U/L Troponin I High Sens 843.8 H* (0-14) pg/ml B-Natriuretic Peptide 228 H (0-100) pg/ml 12/04/22 12/05/22 Range/Units 22:35 04:46 AST (13-39) U/L Lactate Dehydrogenase (86-244) U/L Troponin I High Sens 751.7 H* 754.3 H* (0-14) pg/ml B-Natriuretic Peptide (0-100) pg/ml Coagulation 12/04/22 Range/Units 15:35 B-Natriuretic Peptide 228 H (0-100) pg/ml CBC 12/04/22 12/04/22 12/05/22 Range/Units 15:35 21:00 04:46 WBC 29.78 H 21.86 H (4.8-10.8) K/ul RBC 3.45 L 2.96 L (4.20-5.40) M/uL Hgb 9.1 L 7.9 L (12.0-16.0) g/dl Hct 29.5 L 25.1 L (37.0-47.0) % Plt Count 305 244 (130-400) K/uL Neut # (Auto) 24.74 H 19.98 H (1.40-6.50) K/uL Lymph # (Auto) 3.82 H 1.26 (1.2-3.4) K/uL [place] # (Auto) 0.84 H 0.41 (0.11-0.59) K/uL Eos # (Auto) 0.04 Cancelled 0.00 (0-0.50) K/uL Baso # (Auto) 0.09 0.02 (0-0.2) K/uL Comprehensive Metabolic Panel 12/04/22 12/04/22 12/04/22 Range/Units 15:35 19:58 22:35 Sodium 136 135 L 134 L (136-145) mmol/L Potassium 4.7 4.6 3.9 (3.5-5.1) mmol/L Chloride 108 H 106 107 (98-107) mmol/L Carbon Dioxide 16 L 20 L 18 L (21-32) mmol/L BUN 24 H 26 H 27 H (6-23) mg/dl Creatinine 2.24 H 2.10 H 2.06 H (0.6-1.2) mg/dl Glucose 70 255 H 311 H* (70-99(Fasting)) mg/dl Calcium 8.0 L 7.6 L 8.1 L (8.6-10.3) mg/dl AST 46 H (13-39) U/L ALT 13 (7-52) U/L Alkaline Phosphatase 82 (34-104) U/L Total Protein 6.4 (6.0-8.3) gm/dl Albumin 3.4 (3.4-5.0) gm/dl 12/05/22 Range/Units 04:46 Sodium 135 L (136-145) mmol/L Potassium 3.7 (3.5-5.1) mmol/L Chloride 107 (98-107) mmol/L Carbon Dioxide 20 L (21-32) mmol/L BUN 26 H (6-23) mg/dl Creatinine 1.87 H (0.6-1.2) mg/dl Glucose 218 H (70-99(Fasting)) mg/dl Calcium 7.9 L (8.6-10.3) mg/dl AST (13-39) U/L ALT (7-52) U/L Alkaline Phosphatase (34-104) U/L Total Protein (6.0-8.3) gm/dl Albumin (3.4-5.0) gm/dl Intake and Output 12/04/22 12/05/22 12/05/22 22:59 06:59 14:59 Intake Total 1671.181 / 3428.617 1757.436 / 3428.617 11.675 / 11.675 Output Total 651 / 1361 710 / 1361 Balance 1020.181 / 2067.617 1047.436 / 2067.617 11.675 / 11.675 Intake: IV 1571.181 / 3328.617 1757.436 / 3328.617 11.675 / 11.675 Azithromycin 500 mg In Dextrose 255 / 255 5% 250 ml @ 127.5 mls/hr IV NOW STA Rx#:[id number] Calcium Chloride 10% 1,000 mg 60 / 60 In Dextrose 5% 50 ml @ 240 mls/ hr IV NOW ONE Rx#:[id number] Magnesium Sulfate / D5w 1 gm In 297.5 / 297.5 100 ml @ 50 mls/hr IV Q2H [facility] Rx#:[id number] Norepinephrine/D5w 4 mg In 250 48.495 / 78.255 29.76 / 78.255 ml @ 0 MCG/KG/MIN IV .Q0M [facility] Rx#:[id number] Piperacillin/Tazobactam 4.5 gm 120 / 240 120 / 240 In Dextrose 5% 100 ml @ 30 mls/ hr IV Q8H [facility] Rx#:[id number] Plasma-Lyte A 1,000 ml @ 100 1000 / 1000 mls/hr IV .Q10H [facility] Rx#: [id number] Sodium Chloride 0.9% 1000ML 1, 1000 / 1000 000 ml @ 999 mls/hr IV .Q1H1M ONE Rx#:[id number] fentaNYL citrate 2,500 mcg In 27.166 / 162.665 135.499 / 162.665 4.875 / 4.875 250 ml @ 50 MCG/HR 5 mls/hr IV .Q50H [facility] Rx#:[id number] propofoL 1,000 mg In 100 ml @ 60.520 / 235.197 174.677 / 235.197 6.8 / 6.8 10 MCG/KG/MIN 5.1 mls/hr IV . [id number] [facility] Rx#:[id number] Tube Irrigant 100 / 100 Output: Urine Amount (Catheter) 650 / 1360 710 / 1360 [place]/Indwelling 650 / 1360 710 / 1360 # Bowel Movements Other: Weight 85 kg 81 kg 81 kg Weight Measurement Method Built in [facility] Built in [facility] Built in [facility] Patient Weight 12/06/22 06:59 Weight 81 kg Medications Administered Current Inpatient Medications Albuterol (Albuterol 0.083% Nebu Soln 3 Ml Vial) 2.5 mg INH Q6R WILMA; Protocol Stop: 01/03/23 19:44 Last Admin: 12/05/22 07:00 Dose: 2.5 mg Albuterol (Albuterol 0.083% Nebu Soln 3 Ml Vial) 2.5 mg NEB Q4 PRN; Protocol PRN Reason: wheezing, coughing Stop: 01/03/23 21:26 Atorvastatin Calcium (Atorvastatin 40 Mg Tab) 80 mg PO QAM [facility] Stop: 01/04/23 08:59 Last Admin: 12/05/22 08:04 Dose: 80 mg Dextrose (Dextrose 50% 50 Ml Syringe) 25 - 50 ml IV UD PRN; Protocol PRN Reason: Hypoglycemia Protocol Stop: 01/03/23 20:59 Escitalopram Oxalate (Escitalopram Oxalate Oral Soln 20 Mg/20 Ml Udp) 20 mg PO QAM WILMA Stop: 01/04/23 10:29 Last Admin: 12/05/22 10:55 Dose: 20 mg Fentanyl Citrate (Fentanyl Bolus From Bag) 50 mcg IV Q60M PRN PRN Reason: Pain or Agitation Stop: 12/18/22 22:21 Last Admin: 12/05/22 10:25 Dose: 50 mcg Gabapentin (Gabapentin 250 Mg/5 Ml 470 Ml Btl) 300 mg PO BID [facility] Stop: 01/04/23 10:59 Last Admin: 12/05/22 11:38 Dose: 300 mg Glucagon (Glucagon For Inj 1 Mg Vial) 1 mg IM UD PRN; Protocol PRN Reason: Hypoglycemia Protocol Stop: 01/03/23 20:59 Glucose (Glucose 40% Gel 15 Gm Tube) 15 - 30 gm PO UD PRN; Protocol PRN Reason: Hypoglycemia Protocol Stop: 01/03/23 20:59 Glucose (Glucose 10 Tab/Tube) 4 - 8 tab PO UD PRN; Protocol PRN Reason: Hypoglycemia Protocol Stop: 01/03/23 20:59 Heparin Sodium (Porcine) (Heparin Sod 5,000 Unit/0.5 Ml Vial) 5,000 units SQ Q8H [facility] Stop: 01/03/23 18:43 Last Admin: 12/05/22 10:55 Dose: 5,000 units Norepinephrine Bitartrate (Levophed/D5w) 4 mg in 250 mls @ 0 mls/hr IV .Q0M [facility]; Protocol Stop: 01/03/23 15:59 Last Titration: 12/05/22 03:30 Dose: 0 mcg/kg/min, 0 mls/hr Propofol (Diprivan) 1,000 mg in 100 mls @ 10.2 mls/hr IV .Q9H49M [facility]; Protocol Stop: 12/07/22 18:43 Last Titration: 12/05/22 11:43 Dose: 20 mcg/kg/min, 10.2 mls/hr Piperacillin Sod/Tazobactam (Sod 4.5 gm/ Dextrose) 120 mls @ 30 mls/hr IV Q8H [facility]; Protocol Stop: 12/11/22 01:59 Last Admin: 12/05/22 10:09 Dose: 30 mls/hr Methylprednisolone 40 mg/ (Syringe) 0.64 mls @ 1.5 mls/min IV BID [facility] Stop: 01/03/23 21:59 Last Admin: 12/05/22 08:04 Dose: 1.5 mls/min Fentanyl Citrate (Fentanyl Citrate) 2,500 mcg in 250 mls @ 7.5 mls/hr IV .[id number] [facility]; Protocol Stop: 12/18/22 22:29 Last Admin: 12/05/22 08:50 Dose: 75 mcg/hr, 7.5 mls/hr Pantoprazole Sodium 40 mg/ (Syringe) 10 mls @ 5 mls/min IV DAILY@1100 [facility] Stop: 01/04/23 10:59 Last Admin: 12/05/22 10:55 Dose: 5 mls/min Azithromycin 250 mg/ Dextrose 252.5 mls @ 125 mls/hr IV DAILY [facility] Stop: 12/12/22 08:59 Last Infusion: 12/05/22 10:07 Dose: Infused Dexmedetomidine/Sodium Chloride (Precedex) 200 mcg in 50 mls @ 8.1 mls/hr IV .Q6H11M [facility]; Protocol Stop: 12/09/22 10:44 Last Admin: 12/05/22 11:09 Dose: 0.4 mcg/kg/hr, 8.1 mls/hr Vancomycin HCl 1,250 mg/ (Sodium Chloride) 275 mls @ 200 mls/hr IV Q24H [facility] Stop: 12/12/22 19:59 Insulin Aspart (Insulin Aspart Per Unit Charge) 0 units SC Q4 [facility] Stop: 01/04/23 03:59 Last Admin: 12/05/22 11:35 Dose: Not Given Levetiracetam (Levetiracetam Soln 500 Mg/5 Ml Udp) 500 mg NG Q12 [facility] Stop: 01/03/23 21:14 Last Admin: 12/05/22 08:04 Dose: 500 mg Miscellaneous (Carbohydrates For Hypoglycemia ) 15 - 30 gm PO UD PRN PRN Reason: Hypoglycemia Treatment Stop: 01/03/23 20:59 Miscellaneous Information (Vancomycin Consult Active) 1 each N/A UD PRN PRN Reason: Consult Stop: 01/03/23 19:41 Miscellaneous Information (Pharmacy Glycemic Mgmt Consult) 1 each N/A UD PRN; Protocol PRN Reason: Consult Stop: 01/03/23 20:34 Multivitamins/Minerals (Multi Vit W/Minerals Liquid 15 Ml Udp) 15 ml PO QAM WILMA Stop: 01/05/23 08:59 Nutritional Formula (Peptamen Intense Vhp 1.0 Eduard 1,000 Ml Bag) 1,000 ml OG .See Protocol WILMA; Protocol Stop: 01/04/23 10:14 Last Admin: 12/05/22 12:58 Dose: 1,000 ml Polyethylene Glycol (Polyethylene (Miralax) 17 Gm Pack) 17 gm PO DAILY PRN PRN Reason: Constipation Stop: 01/03/23 18:43 Propofol (Propofol Bolus From Bag) 20 mg IV Q5M PRN PRN Reason: Sedation Stop: 12/07/22 18:43 Last Admin: 12/05/22 10:25 Dose: 20 mg Sterile Water (Tube Feeding Water Flush) 30 ml OG Q4H WILMA Stop: 01/04/23 10:14 Last Admin: 12/05/22 10:55 Dose: 30 ml Trimethoprim/Sulfamethoxazole (Sulfamethoxazole/Trimethoprim 200mg/40mg/5ml Susp) 320 mg PO Q6 WILMA Stop: 12/12/22 05:59 Last Admin: 12/05/22 11:13 Dose: 320 mg
--- NOTE | 2022-12-05 07:41 | Critical Care Progress Note ---
Date of Service December 05, 2022 Assessment & Plan (1) Acute on chronic respiratory failure with hypoxia: Plan: Reason critically ill: Patient is a 42 yo female with a PMH significant for HTN, HLD, COPD requiring 3L NC at night, , diastolic HF, seizure disorder, and hx of polysubstance abuse (methamphetamine, opioids, cannabis) who presented with SOB and cough. She was found to be in respiratory failure and hypotensive- she was admitted to the ICU after intubation and blood pressure management requiring vasopressors. Neuro: Hx of seizure disorder, currently intubated/sedated Sedation: propofol- Analgesia: fentanyl- VIOLETA goal of -1 to -2 - urine tox neg - unequal pupils noted overnight; head CTA neg - hold psychoactive medications; suboxone, buspirone, cyclobenzaprine, trazodone - continue with home keppra 500 mg BID - will resume gabapentin, lexapro to avoid potential withdrawal Cardiac: Septic shock, CAD, HTN, HLD, diastolic heart failure - Septic shock secondary to pulmonary source with subsequent organ dysfunction - Lactate downtrending; BP stable w/o vasopressors - echo upon admission showed hyperdynamic LV with EF of 70%, moderate-severe - troponin peaked at 843 but has since downtrended- likely demand in the setting of sepsis - BNP mildly elevated at 228- unlikely to be the main cause of her respiratory distress is due to fluid overload, however, gentle diuresis may help if respiratory status/volume status does not improve Respiratory: Acute on chronic respiratory failure, bilateral atypical pneumonia, asthma/COPD - CXR on admission showed diffuse bilateral opacities, chest CT showed multifocal ground glass opacities consistent with atypical PNA - continue scheduled albuterol, IV steroids - atypical studies pending (legionella, cryptococcus, histo, aspergillus, PJP) - current ABX therapy: zosyn, vancomycin, azithromycin, and bactrim - repeat bronchoscopy this AM GI: No acute concerns - NPO, OG tube in place - GI ppx ordered - will begin trickle feeds today Renal/electrolytes: AJIT, hypocalcemic, hypomagnesemia, hyperphosphatemia - Cr downtrending after IVF - replace electrolytes as needed : No acute concerns - bell in place Endo: DM - Follow ICU hyperglycemic protocols Heme: Leukocytosis with left shift, chronic normocytic anemia - B12 low normal, folate WNL, iron <10, ferritin 101 - although pt appears iron deficient, will not supplement in the setting of active infection - as anemia appears chronic with mild worsening, recommend further outpatient work up - continue to monitor Hgb, WBC ID: Atypical bilateral pneumonia with ground glass opacities - MRSA nares neg; will await blood cx results before d/c vanco - BAL pending bronch this AM - urine cx pending - atypical studies pending, HIV test ordered - continue zosyn, vanco, azithromycin, and bactrim Lines/IV access: - central line and arterial line in place DVT ppx: - heparin, SCDs Please refer to Dr. Armenta's documentation for any further recommendations. (2) Multifocal pneumonia: (3) Chronic diastolic CHF (congestive heart failure): (4) HLD (hyperlipidemia): (5) HTN (hypertension): (6) Aortic stenosis: (7) Diabetes mellitus, type 2: (8) Coronary artery disease: (9) Seizure disorder: Admission and Anticipated Discharge Date Admission Date: December 04, 2022 Supervising Physician Co-Signing Physician Notes Patient seen and examined. EMR reviewed. Discussed on multidisciplinary rounds and with bedside critical care nurse as well as with family practice resident and overnight critical care DUSTIN. Agree with assessment plan as noted. Patient has multifocal airspace opacities of unclear etiology. Her procalcitonin and white blood cell count are elevated and infection is possible although this would be an atypical infection. Will cover for etiologies such as Legionella as well as pneumocystis. Bronchoscopy cultures are pending. Will continue steroids for now which would be indicated if this were pneumocystis pneumonia. Other etiologies including acute eosinophilic pneumonia and Caesar Rich syndrome would be on the differential as well. She initially had hypoten thu but is now off blood pressure medications. She is having issues with sedation so we will continue propofol and as needed fentanyl (the patient is on Suboxone as an outpatient) and add Precedex with low threshold for consideration of antipsychotics if agitation remains problematic. Her ventilator settings are adequate currently and she is oxygenating better. Will continue ARDSnet ventilatory strategy with sick cc per kilo and adjust FiO2 and PEEP based on ARDS net tables. Given her prior history of a tricuspid vegetation and potential endocarditis, STEVEN while the patient is intubated would not be unreasonable. If her infiltrates fail to improve, would have a low threshold for consideration of pulmonary artery catheterization to better define her hemodynamics. Repeat bronchoscopy was conducted today which did not demonstrate alveolar hemorrhage and she does not have hematuria so vasculitis or pulmonary renal syndrome appears less likely. It is possible the patient could have an old or ingested an illicit substance causing this clinical pattern. If that were the case supportive care would be recommended. Given the fact that she had a similar presentation about 10 months ago raises the possibility potential inhalational exposure. Will have nutrition initiate trophic tube feeds and see how she does. She remains critically ill at this point in time. Significant possibility of clinical decline and or . A total of 65 minutes in critical care time was spent in evaluation management stabilization of this patient. Subjective Pt intubated and sedated. Appears comfortable. She has been off levophed since 3 AM. Review of Systems Review of Systems: Unobtainable due to endotracheal tube Physical Exam Physical Exam: Constitutional: ill appearing, no acute distress HEENT: normocephalic CV: regular rhythm, regular rate, systolic 2/6 murmur, no LE edema Respiratory: Course breath sounds throughout. No wheezing noted but air movement is decreased throughout. MSK: no gross deformities noted Skin: warm, dry, no rashes Neuro: sedated Results & Data Results & Data Vital Signs (Past 12 Hours) Vital Signs Temp Pulse Pulse Resp BP BP Pulse Ox 12/05/22 07:10 99 H 32 H 95 12/05/22 07:10 99 H 31 H 95 12/05/22 06:00 36.9 C 99 H 25 H 96 12/05/22 05:51 100/59 L 12/05/22 05:51 101 H 29 H 95 12/05/22 05:00 36.9 C 103 H 22 94 12/05/22 05:00 110/68 12/05/22 04:00 36.8 C 109 H 24 94 12/05/22 04:00 110/57 L 12/05/22 03:42 12/05/22 03:40 12/05/22 03:37 111 H 111/51 L 12/05/22 02:49 109 H 29 H 92 12/05/22 02:30 36.7 C 109 H 27 H 93 12/05/22 02:00 36.8 C 110 H 26 H 92 12/05/22 02:00 101/64 12/05/22 01:30 36.8 C 111 H 26 H 93 12/05/22 01:00 36.9 C 113 H 26 H 93 12/05/22 01:00 103/64 12/05/22 00:30 116 H 23 94 12/05/22 00:00 36.9 C 116 H 21 94 12/05/22 00:00 117/58 L 12/04/22 23:30 113 H 21 93 12/04/22 23:00 108 H 30 H 93 12/04/22 23:00 112/60 12/05/22 00:00 12/05/22 00:32 26 H 12/05/22 00:00 12/05/22 00:00 108 H 12/04/22 22:57 108 H 34 H 92 12/04/22 22:50 36.9 C 108 H 35 H 91 12/04/22 22:40 109 H 35 H 87 L 12/04/22 22:30 109 H 31 H 87 L 12/04/22 22:20 111 H 39 H 89 L 12/04/22 22:10 112 H 40 H 90 12/04/22 22:00 112 H 40 H 100 12/04/22 22:00 113/71 12/04/22 21:50 113 H 39 H 94 12/04/22 21:40 114 H 36 H 93 12/04/22 20:00 12/04/22 20:00 12/04/22 21:30 115 H 35 H 92 12/04/22 21:00 118 H 35 H 91 12/04/22 21:00 109/51 L 12/04/22 20:30 122 H 27 H 93 12/04/22 20:05 113/62 12/04/22 20:05 123 H 29 H 92 12/04/22 20:00 124 H 29 H 92 12/04/22 20:00 112/70 12/04/22 19:55 112/60 12/04/22 19:55 125 H 29 H 87 L 12/04/22 19:50 126 H 28 H 89 L 12/04/22 19:50 112/61 12/04/22 19:45 113/67 12/04/22 19:45 126 H 26 H 91 12/04/22 19:41 98/60 L 12/04/22 19:41 126 H 25 H 97 12/04/22 19:35 126 H 24 97 12/04/22 19:35 107/68 12/04/22 19:30 127 H 24 97 12/04/22 19:30 105/57 L 12/04/22 19:25 103/70 12/04/22 19:20 103/61 12/04/22 19:15 37.4 C 108/67 12/04/22 21:15 12/04/22 20:07 123 H 28 H 94 12/04/22 20:07 123 H 28 H 92 12/04/22 19:54 135 H 122/75 92 O2 Del Method FiO2 12/05/22 07:10 50 12/05/22 07:10 Mechanical Vent 50 12/05/22 06:00 12/05/22 05:51 12/05/22 05:51 12/05/22 05:00 12/05/22 05:00 12/05/22 04:00 12/05/22 04:00 12/05/22 03:42 Mechanical Vent 12/05/22 03:40 55 12/05/22 03:37 12/05/22 02:49 55 12/05/22 02:30 12/05/22 02:00 12/05/22 02:00 12/05/22 01:30 Mechanical Vent 55 12/05/22 01:00 12/05/22 01:00 12/05/22 00:30 12/05/22 00:00 12/05/22 00:00 12/04/22 23:30 12/04/22 23:00 12/04/22 23:00 12/05/22 00:00 Mechanical Vent 12/05/22 00:32 55 12/05/22 00:00 55 12/05/22 00:00 12/04/22 22:57 55 12/04/22 22:50 12/04/22 22:40 12/04/22 22:30 12/04/22 22:20 12/04/22 22:10 12/04/22 22:00 12/04/22 22:00 12/04/22 21:50 12/04/22 21:40 12/04/22 20:00 Mechanical Vent 12/04/22 20:00 50 12/04/22 21:30 Mechanical Vent 80 12/04/22 21:00 12/04/22 21:00 12/04/22 20:30 12/04/22 20:05 12/04/22 20:05 12/04/22 20:00 12/04/22 20:00 12/04/22 19:55 12/04/22 19:55 12/04/22 19:50 12/04/22 19:50 12/04/22 19:45 12/04/22 19:45 12/04/22 19:41 12/04/22 19:41 12/04/22 19:35 12/04/22 19:35 12/04/22 19:30 12/04/22 19:30 12/04/22 19:25 12/04/22 19:20 12/04/22 19:15 12/04/22 21:15 Mechanical Vent 12/04/22 20:07 Mechanical Vent 50 12/04/22 20:07 50 12/04/22 19:54 Mechanical Vent 80 Resident Activity Tracking Resident Involvement: Resident Care Provided Care Provided: Adult Hospital Medicine (ICU) (7) Diabetes mellitus, type 2 Diabetes mellitus complication status: with unspecified complications Diabetes mellitus mcfp insulin use: without mcfp use Qualified Code(s): E11.8 - Type 2 diabetes mellitus with unspecified complications
--- NOTE | 2022-12-05 07:43 | XRay Report ---
XR chest 1V portable HISTORY: Respiratory failure. while intubated- eval ETT, lines, lung christina COMPARISON: Chest 12/04/2022. FINDINGS: Endotracheal tube terminates 3.7 cm from the misti. A nasogastric tube terminates in the s tomach. A right jugular central venous catheter terminates at the distal SVC. Diffuse patchy bilatera l airspace opacities and interstitial thickening persists. The heart remains mildly enlarged. No pneu mothorax. No acute fractures identified. IMPRESSION: 1. Satisfactory support line placement. 2. No change in the diffuse patchy bilateral airspace opacities. ACT 112: Negative or not required by law. Electronically signed by: Arnol Kenney M.D. 12/05/2022 7:42 AM
--- NOTE | 2022-12-05 07:46 | XRay Report ---
XR chest 1V portable CLINICAL HISTORY: NGT placement, intubation, central line insertion TECHNIQUE: Single frontal radiograph of the chest was obtained. Comparison: Comparison is made to chest radiograph 12/14/2022 FINDINGS: Endotracheal tube is stable. Right IJ catheter tip is in the cavoatrial junction. Enteric tube is in satisfactory position with the tip and side-port below the diaphragm. The cardiomediastinal silhouett e is normal. Multifocal airspace opacities are seen. No evidence of pleural effusion or pneumothorax. IMPRESSION: Satisfactory appearance of enteric tube an venous catheter. Stable pneumonia. ACT 112: Negative or not required by law. Electronically signed by: Moi Ring M.D. 12/05/2022 7:45 AM
[2022-12-05] MEDS: AZITHROMYCIN 250 MG in DEXTROSE 5% 250 ML IV SCH (08:00)
[2022-12-05] MEDS: methylPREDNISolone 40 MG in SYRINGE 0 ML IV SCH ×2 (08:04→20:07)
[2022-12-05] MEDS: ATORVASTATIN 40 MG TAB PO SCH (08:04)
[2022-12-05] MEDS: PROPOFOL BOLUS FROM BAG IV PRN ×5 (08:06→18:11)
[2022-12-05 08:12] LABS: Estimated Average Glucose 126 mg/dl
[2022-12-05] MEDS: fentaNYL citrate 2,500 MCG/250 ML BAG IV SCH (08:50)
[2022-12-05 08:53] LABS: Fluid Mono/Macrophage 6 %; Lymphocyte Body Fluid Man 0 %; Neutrophil Body Fluid Man 94 %
[2022-12-05] MEDS ORDERED: LANTUS PER UNIT CHARGE SC ONE (09:00)
[2022-12-05] MEDS ORDERED: PEPTAMEN INTENSE VHP 1.0 CAL 1,000 ML BAG OG SCH (10:15)
[2022-12-05] MEDS ORDERED: VECURONIUM BROMIDE 10 MG VIAL IV ONE (10:32)
[2022-12-05] MEDS ORDERED: STAT IV Infusion **Titration per Protocol STA (10:43)
--- NOTE | 2022-12-05 10:51 | Procedure Note ---
Procedure Note: Bronchoscopy Procedure Procedure: Fiberoptic bronchoscopy Bronchoalveolar lavage Provider: Chava Armenta MD Consent: Procedure was emergent. No family immediately available Indication: Diffuse pulmonary infiltrates. Estimated blood loss: None Procedure: Patient was in the ICU on mechanical ventilator. She has diffuse pulmonary infiltrates and there was some question regarding the viability of the prior samples from bronchoscopy last evening so repeat assessment was requested. In addition sequential BALs were to be performed to exclude alveolar hemorrhage. Patient was intubated on the mechanical ventilator. Sedation was being administered with continuous infusions of fentanyl and propofol. Patient was continuously monitored throughout the procedure. She was difficult to sedate and eventually a dose of vecuronium 10 mg had to be administered to facilitate compliance with the procedure. The patient was adequately sedated and was oxygenating well, the fiberoptic bronchoscope was advanced through the existing endotracheal tube via the Bodai adapter. The tube was approximately 2 cm above the misti. There were clear mucoid secretions present throughout the tracheobronchial tree which were lavaged free. A sequential and systematic inspection of the airways was conducted. No significant endobronchial irregularity was identified and the tracheobronchial tree appeared unremarkable. There were minimal purulent secretions identified. After the inspection bronchoscopy was completed, the scope was wedged into the left upper lobe. Sequential BAL was performed with instillation of 3 aliquots of 60 cc of saline. The return was optimal with a greater than 50% return. The return did become slightly more cloudy but not bloody and there was not a significant change between the second and third aliquot, making alveolar hemorrhage less likely. The bronchoscope was then removed from the airways. The patient tolerated the procedure well without obvious complication. Patient remained intubated in the ICU Impression: 1. Endotracheal tube in good position. 2. Unremarkable tracheobronchial tree with the exception of some mild mucoid secretions. 3. Successful BAL left upper lobe. No evidence of pulmonary hemorrhage. [facility] [place] Codes (Charges) Pulmonary/Thoracic Procedure 1: Pulmonary and Thoracic: 54870 Dx bronchoscopy/BAL
[2022-12-05] MEDS: ESCITALOPRAM OXALATE ORAL SOLN 20 MG/20 ML UDP PO SCH (10:55)
[2022-12-05] MEDS: PANTOprazole 40 MG in SYRINGE 0 ML IV SCH (10:55)
[2022-12-05] MEDS: TUBE FEEDING WATER FLUSH OG SCH ×4 (10:55→22:33)
[2022-12-05] MEDS: dexMEDEtomidine 200 MCG/50 ML BAG IV SCH ×3 (11:09→19:56)
[2022-12-05] MEDS: GABAPENTIN 250 MG/5 ML 470 ML BTL PO SCH ×2 (11:38→20:06)
--- NOTE | 2022-12-05 11:46 | Pharmacy Report ---
Pharmacy PK ABX Note - Date of Service December 05, 2022 - Assessment and Plan Assessment 42 year old F receiving IV Vancomycin and Zosyn for treatment of sepsis secondary to pneumonia. MRSA nasal swab negative, but continuing for now pending BAL cxs. Renal function improved somewhat today (scr 2.1->1.87). Will schedule maintenance dose, but andre monitor closely for needed changes due to fluctuating renal function. Day # 1 of antimicrobial therapy. Plan Vancomycin * Random level obtained 12/05/22 resulted as 21.3 mcg/mL after loading dose only. * Initiate Regimen: 1250 mg IV every 24 hours. This is predicted to achieve target AUC/YENNI of 400-600 mg/L.hr. Predicted AUC at steady state: 579 mg/L.hr * Repeat random level ordered for: 12/07/22 with AM labs or sooner if indicated due to changing renal function. Pharmacy will continue to follow and will adjust dose/frequency as necessary. Thank you. Pharmacy has transitioned to AUC monitoring for vancomycin. AUC/YENNI is the preferred PK/PD target and is associated with decreased risk of nephrotoxicity compared to traditional trough targets.
--- NOTE | 2022-12-05 11:52 | Pharmacy Report ---
Pharmacy Glycemic Short Note 2 - Date of Service December 05, 2022 - Glycemic Short BSG Results (Last 24 hours): 12/04/22 12/04/22 12/04/22 15:35 15:37 19:37 Glucose 70 POC Glucose 280 H POC Glucose (other) 75 12/04/22 12/04/22 12/04/22 19:58 21:09 22:35 Glucose 255 H 311 H* POC Glucose 298 H POC Glucose (other) 12/05/22 12/05/22 12/05/22 03:46 04:46 07:51 Glucose 218 H POC Glucose 258 H 137 H POC Glucose (other) 12/05/22 11:28 Glucose POC Glucose 139 H POC Glucose (other) OUTPATIENT ANTIDIABETIC REGIMEN: * metformin 1000mg BID * A1c: 6.0 12/05/22 ASSESSMENT: * Patient presenting with sepsis/pneumonia experiencing hyperglycemia on admission. * Patient received a total 24 units of insulin yesterday (10 basal, 14 bolus) * Patient is continued on IV solumedrol 40mg q12 and was initiated on trickle feeds this morning * BSGs normalized this morning with a fasting of 137mg/dL. Will order a small dose of lantus and proceed with CF only for now. IF TFs increased, Carb coverage likely will need to be added. PLAN FOR INPATIENT GLYCEMIC CONTROL: * Hold outpatient oral diabetes medications * Basal insulin * Lantus 5 units SQ this morning X 1 * Bolus insulin * NovoLog per scale q4h * Goal Range: Low 110 mg/dL - High 140 mg/dL * Correction Factor: 20 mg/dL/unit * Nutritional / Prandial insulin none while NPO/on trickle feeds
[2022-12-05 13:06] LABS: Eosinophil Body Fluid Man 1 %; Fluid Mono/Macrophage 72 %; Lymphocyte Body Fluid Man 1 %; Neutrophil Body Fluid Man 26 %
--- NOTE | 2022-12-05 14:16 | Electrocardiogram Report ---
Test Reason : Blood Pressure : / mmHG Vent. Rate : 103 BPM Atrial Rate : 103 BPM P-R Int : 160 ms QRS Dur : 090 ms QT Int : 368 ms P-R-T Axes : 060 047 033 degrees QTc Int : 482 ms Sinus tachycardia Otherwise normal ECG When compared with ECG of 04-DEC-2022 15:19, No significant change was found Confirmed by Liu Harrington [id number]) on 12/05/2022 2:15:51 PM Referred By: REFERRED SELF Confirmed By:Angus Harrington
--- NOTE | 2022-12-05 14:18 | Billing Data ---
Date of Service December 05, 2022 Coding Level of Care Code 76527 CRITICAL CARE
--- NOTE | 2022-12-05 14:41 | Hospitalist Progress Note ---
Date of Service December 05, 2022 Assessment & Plan (1) Septic shock: Plan: Secondary to multifocal pneumonia and sepsis Has been requiring multiple pressor agents to maintain blood pressure Appreciate hand picker input and recommendation (2) Acute on chronic respiratory failure with hypoxia: Plan: Secondary to multifocal pneumonia with history of asthma/COPD Will continue with intravenous Solu-Medrol (3) Multifocal pneumonia: Plan: Admitted to ICU Patient presenting from home with reports of worsening shortness of breath. In itially required 15L NRB and subsequent intubation due to respiratory distress. On presentation, hypotensive requiring Levophed, tachycardic, WBC 29 K, lactic acid 4.1, creatinine 2.2 CT chest showing multifocal pneumonia Received IV azithromycin, cefepime in the ED and will be continued Blood and urine cultures are pending White cell count is slightly improved at 22 K and lactate has been normalized Appreciate hand picker input and recommendation Has been getting intravenous Zosyn, vancomycin, azithromycin and oral Bactrim Status post bronchoscopy-results are pending Remains sedated on ventilator Not showing any improvement-will continue current management (4) Elevated troponin: (5) Coronary artery disease: Plan: Initial troponin was 843 and subsequent troponins did not show any increased No reports of chest pain, EKG without acute ST changes Stat echo obtained in ED with cardiology at the bedside --no wall motion abnormalities noted, EF 60% Elevated troponins likely secondary to sepsis with strain Appreciate cardiology input and recommendation Will continue aspirin 81 mg daily and Plavix (6) Chronic diastolic CHF (congestive heart failure): (7) Aortic stenosis: Plan: Monitor volume status closely proBNP 228 (8) Seizure disorder: Plan: On Keppra, consider IV administration while intubated (9) Polysubstance abuse: Plan: History of, on Suboxone DVT PROPHYLAXIS SQ heparin Admission and Anticipated Discharge Date Admission Date: December 04, 2022 Subjective 12/05/2022 The patient was seen and examined in ICU She remains intubated and sedated Review of Systems Review of Systems: Unobtainable due to endotracheal tube Physical Exam Physical Exam: Remains on vent, on sedation Constitutional: well developed, well nourished, + ill appearing and + obese Eyes: Closed ENMT: external ear and nose normal, oropharynx normal Neck: trachea midline, no thyromegaly Respiratory: Auscultation: + diminished lung sounds and + crackles (Minimal crackles at the bases) Cardiovascular: Rate/Rhythm: regular rate and regular rhythm; not tachycardic Heart Sounds: normal S1, normal S2 and + murmur Extremities: + edema (Trace edema bilaterally) Gastrointestinal (Abdomen): Inspection/Auscultation: normal bowel sounds; abdomen not distended Percussion/Palpation: abdomen soft Musculoskeletal: No acute arthritis involving any joint Neurologic: Remains sedated on mechanical ventilator Results & Data Results & Data Vital Signs (Past 12 Hours) Vital Signs Temp Pulse Pulse Resp BP Pulse Ox O2 Del Method 12/05/22 14:05 98 H 24 96 Mechanical Vent 12/05/22 14:00 37.1 C 107 H 22 95 12/05/22 13:00 37.0 C 112 H 21 96 12/05/22 13:00 121/65 12/05/22 12:00 37.1 C 116 H 21 96 12/05/22 12:00 119/61 12/05/22 12:00 12/05/22 11:00 37.5 C 118 H 21 95 12/05/22 11:00 119/64 12/05/22 10:00 37.6 C H 106 H 20 97 12/05/22 10:00 106/61 12/05/22 11:12 99 H 24 97 12/05/22 11:12 Mechanical Vent 12/05/22 09:15 Mechanical Vent 12/05/22 09:10 37.4 C 109 H 24 97 12/05/22 09:00 37.4 C 110 H 23 99 12/05/22 09:00 109/68 12/05/22 08:00 37.2 C 108 H 26 H 97 12/05/22 08:00 107/60 12/05/22 07:00 37.1 C 98 H 23 96 12/05/22 07:00 102/59 L 12/05/22 08:38 103 H 12/05/22 08:00 12/05/22 08:00 110 H 109/54 L 12/05/22 08:28 Mechanical Vent 12/05/22 07:10 99 H 32 H 95 12/05/22 07:10 99 H 31 H 95 Mechanical Vent 12/05/22 06:00 36.9 C 99 H 25 H 96 12/05/22 05:51 100/59 L 12/05/22 05:51 101 H 29 H 95 12/05/22 05:00 36.9 C 103 H 22 94 12/05/22 05:00 110/68 12/05/22 04:00 36.8 C 109 H 24 94 12/05/22 04:00 110/57 L 12/05/22 03:42 Mechanical Vent 12/05/22 03:40 12/05/22 03:37 111 H 111/51 L 12/05/22 02:49 109 H 29 H 92 12/05/22 02:30 36.7 C 109 H 27 H 93 FiO2 12/05/22 14:05 40 12/05/22 14:00 12/05/22 13:00 12/05/22 13:00 12/05/22 12:00 12/05/22 12:00 12/05/22 12:00 40 12/05/22 11:00 12/05/22 11:00 12/05/22 10:00 12/05/22 10:00 12/05/22 11:12 40 12/05/22 11:12 12/05/22 09:15 12/05/22 09:10 12/05/22 09:00 12/05/22 09:00 12/05/22 08:00 12/05/22 08:00 12/05/22 07:00 12/05/22 07:00 12/05/22 08:38 12/05/22 08:00 50 12/05/22 08:00 12/05/22 08:28 50 12/05/22 07:10 50 12/05/22 07:10 50 12/05/22 06:00 12/05/22 05:51 12/05/22 05:51 12/05/22 05:00 12/05/22 05:00 12/05/22 04:00 12/05/22 04:00 12/05/22 03:42 12/05/22 03:40 55 12/05/22 03:37 12/05/22 02:49 55 12/05/22 02:30 Laboratory Results Short CBC 12/04/22 12/05/22 Range/Units 15:35 04:46 WBC 29.78 H 21.86 H (4.8-10.8) K/ul Hgb 9.1 L 7.9 L (12.0-16.0) g/dl Hct 29.5 L 25.1 L (37.0-47.0) % Plt Count 305 244 (130-400) K/uL BMP 12/04/22 12/04/22 12/04/22 15:35 19:58 22:35 Sodium 136 135 L 134 L Potassium 4.7 4.6 3.9 Chloride 108 H 106 107 Carbon Dioxide 16 L 20 L 18 L BUN 24 H 26 H 27 H Creatinine 2.24 H 2.10 H 2.06 H Glucose 70 255 H 311 H* Calcium 8.0 L 7.6 L 8.1 L 12/05/22 04:46 Sodium 135 L Potassium 3.7 Chloride 107 Carbon Dioxide 20 L BUN 26 H Creatinine 1.87 H Glucose 218 H Calcium 7.9 L Liver Function 12/04/22 Range/Units 15:35 Total Bilirubin 0.5 (0.2-1.0) mg/dl AST 46 H (13-39) U/L ALT 13 (7-52) U/L Alkaline Phosphatase 82 (34-104) U/L Albumin 3.4 (3.4-5.0) gm/dl Urine 12/04/22 Range/Units 16:13 Urine Color Yellow Urine Appearance Clear (Clear) Urine pH 5.0 (4.5-7.5) Ur Specific [place] 1.011 (1.000-1.030) Urine Protein Negative (Negative) Urine Glucose (UA) Negative (Negative) Medications Administered Current Inpatient Medications Albuterol (Albuterol 0.083% Nebu Soln 3 Ml Vial) 2.5 mg INH Q6R [facility]; Protocol Stop: 01/03/23 19:44 Last Admin: 12/05/22 14:05 Dose: Not Given Albuterol (Albuterol 0.083% Nebu Soln 3 Ml Vial) 2.5 mg NEB Q4 PRN; Protocol PRN Reason: wheezing, coughing Stop: 01/03/23 21:26 Atorvastatin Calcium (Atorvastatin 40 Mg Tab) 80 mg PO QAM [facility] Stop: 01/04/23 08:59 Last Admin: 12/05/22 08:04 Dose: 80 mg Dextrose (Dextrose 50% 50 Ml Syringe) 25 - 50 ml IV UD PRN; Protocol PRN Reason: Hypoglycemia Protocol Stop: 01/03/23 20:59 Escitalopram Oxalate (Escitalopram Oxalate Oral Soln 20 Mg/20 Ml Udp) 20 mg PO QAM [facility] Stop: 01/04/23 10:29 Last Admin: 12/05/22 10:55 Dose: 20 mg Fentanyl Citrate (Fentanyl Bolus From Bag) 50 mcg IV Q60M PRN PRN Reason: Pain or Agitation Stop: 12/18/22 22:21 Last Admin: 12/05/22 10:25 Dose: 50 mcg Gabapentin (Gabapentin 250 Mg/5 Ml 470 Ml Btl) 300 mg PO BID [facility] Stop: 01/04/23 10:59 Last Admin: 12/05/22 11:38 Dose: 300 mg Glucagon (Glucagon For Inj 1 Mg Vial) 1 mg IM UD PRN; Protocol PRN Reason: Hypoglycemia Protocol Stop: 01/03/23 20:59 Glucose (Glucose 40% Gel 15 Gm Tube) 15 - 30 gm PO UD PRN; Protocol PRN Reason: Hypoglycemia Protocol Stop: 01/03/23 20:59 Glucose (Glucose 10 Tab/Tube) 4 - 8 tab PO UD PRN; Protocol PRN Reason: Hypoglycemia Protocol Stop: 01/03/23 20:59 Heparin Sodium (Porcine) (Heparin Sod 5,000 Unit/0.5 Ml Vial) 5,000 units SQ Q8H [facility] Stop: 01/03/23 18:43 Last Admin: 12/05/22 10:55 Dose: 5,000 units Norepinephrine Bitartrate (Levophed/D5w) 4 mg in 250 mls @ 0 mls/hr IV .Q0M [facility]; Protocol Stop: 01/03/23 15:59 Last Titration: 12/05/22 03:30 Dose: 0 mcg/kg/min, 0 mls/hr Propofol (Diprivan) 1,000 mg in 100 mls @ 10.2 mls/hr IV .Q9H49M [facility]; Protocol Stop: 12/07/22 18:43 Last Admin: 12/05/22 13:36 Dose: 20 mcg/kg/min, 10.2 mls/hr Piperacillin Sod/Tazobactam (Sod 4.5 gm/ Dextrose) 120 mls @ 30 mls/hr IV Q8H [facility]; Protocol Stop: 12/11/22 01:59 Last Infusion: 12/05/22 14:16 Dose: Infused Methylprednisolone 40 mg/ (Syringe) 0.64 mls @ 1.5 mls/min IV BID [facility] Stop: 01/03/23 21:59 Last Admin: 12/05/22 08:04 Dose: 1.5 mls/min Fentanyl Citrate (Fentanyl Citrate) 2,500 mcg in 250 mls @ 7.5 mls/hr IV .[id number] [facility]; Protocol Stop: 12/18/22 22:29 Last Admin: 12/05/22 08:50 Dose: 75 mcg/hr, 7.5 mls/hr Pantoprazole Sodium 40 mg/ (Syringe) 10 mls @ 5 mls/min IV DAILY@1100 [facility] Stop: 01/04/23 10:59 Last Admin: 12/05/22 10:55 Dose: 5 mls/min Azithromycin 250 mg/ Dextrose 252.5 mls @ 125 mls/hr IV DAILY [facility] Stop: 12/12/22 08:59 Last Infusion: 12/05/22 10:07 Dose: Infused Dexmedetomidine/Sodium Chloride (Precedex) 200 mcg in 50 mls @ 8.1 mls/hr IV .Q6H11M [facility]; Protocol Stop: 12/09/22 10:44 Last Admin: 12/05/22 11:09 Dose: 0.4 mcg/kg/hr, 8.1 mls/hr Vancomycin HCl 1,250 mg/ (Sodium Chloride) 275 mls @ 200 mls/hr IV Q24H [facility] Stop: 12/12/22 19:59 Insulin Aspart (Insulin Aspart Per Unit Charge) 0 units SC Q4 [facility] Stop: 01/04/23 03:59 Last Admin: 12/05/22 11:35 Dose: Not Given Levetiracetam (Levetiracetam Soln 500 Mg/5 Ml Udp) 500 mg NG Q12 [facility] Stop: 01/03/23 21:14 Last Admin: 12/05/22 08:04 Dose: 500 mg Miscellaneous (Carbohydrates For Hypoglycemia ) 15 - 30 gm PO UD PRN PRN Reason: Hypoglycemia Treatment Stop: 01/03/23 20:59 Miscellaneous Information (Vancomycin Consult Active) 1 each N/A UD PRN PRN Reason: Consult Stop: 01/03/23 19:41 Miscellaneous Information (Pharmacy Glycemic Mgmt Consult) 1 each N/A UD PRN; Protocol PRN Reason: Consult Stop: 01/03/23 20:34 Multivitamins/Minerals (Multi Vit W/Minerals Liquid 15 Ml Udp) 15 ml PO QAM [facility] Stop: 01/05/23 08:59 Nutritional Formula (Peptamen Intense Vhp 1.0 Eduard 1,000 Ml Bag) 1,000 ml OG .See Protocol [facility]; Protocol Stop: 01/04/23 10:14 Last Admin: 12/05/22 12:58 Dose: 1,000 ml Polyethylene Glycol (Polyethylene (Miralax) 17 Gm Pack) 17 gm PO DAILY PRN PRN Reason: Constipation Stop: 01/03/23 18:43 Propofol (Propofol Bolus From Bag) 20 mg IV Q5M PRN PRN Reason: Sedation Stop: 12/07/22 18:43 Last Admin: 12/05/22 10:25 Dose: 20 mg Sterile Water (Tube Feeding Water Flush) 30 ml OG Q4H [facility] Stop: 01/04/23 10:14 Last Admin: 12/05/22 14:16 Dose: 30 ml Trimethoprim/Sulfamethoxazole (Sulfamethoxazole/Trimethoprim 200mg/40mg/5ml Susp) 320 mg PO Q6 [facility] Stop: 12/12/22 05:59 Last Admin: 12/05/22 11:13 Dose: 320 mg
[2022-12-05] MEDS ORDERED: VANCOMYCIN HCL 1,250 MG in SODIUM CHLORIDE 0.9% 250 ML IV SCH (20:00)
[2022-12-06] MEDS: ALBUTEROL 0.083% NEBU SOLN 3 ML VIAL INH SCH ×5 (00:13→23:56)
[2022-12-06] MEDS: propofoL 1,000 MG/100 ML VIAL IV SCH ×5 (01:29→19:02)
[2022-12-06] MEDS: TUBE FEEDING WATER FLUSH OG SCH ×6 (02:12→22:13)
[2022-12-06] MEDS: HEPARIN SOD 5,000 UNIT/0.5 ML VIAL SQ SCH ×3 (02:13→18:09)
[2022-12-06] MEDS: PIPERACILLIN/TAZOBACTAM 4.5 GM in DEXTROSE 5% 100 ML IV SCH ×3 (02:19→18:09)
[2022-12-06] MEDS ORDERED: Nursing to Pharmacy Communication SCH (02:30)
[2022-12-06 02:42] LABS: iSTAT Art Bld Gas pCO2 Correct 38 mmHg (35-46); iSTAT Art Bld Gas pH Corrected 7.355 (7.35-7.45); iSTAT Arterial Blood Gas HCO3 21 meg/L (19-24); iSTAT Arterial Blood Gas pCO2 37 mmHg (35-46); iSTAT Arterial Blood Gas pH 7.36 (7.35-7.45); iSTAT Arterial Blood Gas pO2 140 mmHg (80-95); iSTAT Arterial Blood Gas pO2 C 144; iSTAT Carbon Dioxide 22 mmol/L (24-31); iSTAT FiO2 40 %; iSTAT Hematocrit 23 % (37-47); iSTAT Hemoglobin 7.8 g/dl (12.0-16.0); iSTAT Site Art Line; iSTAT Sodium 141 mmol/L (135-144)
[2022-12-06] MEDS: INSULIN ASPART PER UNIT CHARGE SC SCH ×5 (04:02→20:50)
[2022-12-06] MEDS: dexMEDEtomidine 200 MCG/50 ML BAG IV SCH ×4 (04:02→19:33)
[2022-12-06] MEDS: PROPOFOL BOLUS FROM BAG IV PRN ×6 (04:11→18:32)
[2022-12-06] MEDS: fentaNYL BOLUS from BAG IV PRN ×3 (04:18→06:32)
[2022-12-06] MEDS: SULFAMETHOXAZOLE/TRIMETHOPRIM 200MG/40MG/5ML SUSP PO SCH ×3 (06:01→18:09)
[2022-12-06 06:07] LABS: Creatinine Clr Calc Pharmacy 40.6 ml/min
[2022-12-06 06:15] LABS: Basophils # (auto) 0.02 K/uL (0-0.2); Basophils % (auto) 0.1 %; Hematocrit (blood only) 23.6 % (37.0-47.0); Hemoglobin 7.6 g/dl (12.0-16.0); Immature Granulocytes # (auto) 0.18 K/uL (0.01-0.20); Immature Granulocytes % (auto) 0.9 %; Lymphocytes % (auto) 6.9 %; Mean Corpuscular Hemoglobin 26.6 pg (25.0-34.0); Mean Corpuscular Hgb Conc 32.2 g/dL (32.0-36.0); Mean Corpuscular Volume 82.5 fL (80.0-100.0); Mean Platelet Volume 10.4 fL (9.4-12.4); Monocytes # (auto) 0.82 K/uL (0.11-0.59); Monocytes % (auto) 4.3 %; Neutrophils # (auto) 16.63 K/uL (1.40-6.50); Neutrophils % (auto) 87.8 %; Platelet Count 265 K/uL (130-400); RDW Coefficient of Variation 19.9 % (11.5-14.5); RDW Standard Deviation 58.9 fL (36.4-46.3); Red Blood Count 2.86 M/uL (4.20-5.40); White Blood Count 18.95 K/ul (4.8-10.8)
[2022-12-06 06:44] LABS: Echinocytes 1+; Ovalocytes 1+
--- NOTE | 2022-12-06 07:30 | Cardiology Progress Note ---
Date of Service December 06, 2022 Assessment & Plan (1) Septic shock: (2) Acute on chronic respiratory failure with hypoxia: (3) Multifocal pneumonia: (4) Elevated troponin: Plan Please refer to physician addendum regarding further information as well as full plan of care. Plan 42 yo woman presenting with severe Hypoxia (Acute) + Hypotension + Troponin EKG - no ST segment elevations CXR - bilateral infiltrates Hypotension noted - Rx transiently with Levophed for BP support Marked Leukocytosis Significant Metabolic Acidosis No major hypercarbia ECHOcardiogram: LVEF 65% No dense wall motion abnormalities noted No major valvular stenotic or regurgitant lesions RV was not markedly dilated RV function was WNL No major TR IVC was not dilated No significant Pericardial Effusion noted. Patient is being treated for Infection with broad spectrum ABX Metabolic acidosis (improving) Lactate back to normal - 1.6 Creat appears to be c/w AJIT (improving) No chemical evidence of shock liver Pressor Support - as needed Currently MAP >[address] of Chest - c/w PNA Continue Broad Spectrum ABX Troponin elevation appears to be secondary to demand + Hx of Stents Please continue ASA 81 mg po per day Please continue Plavix 75 mg po per day Check LFTs Continue Lipitor 80 mg po per day Statin may be held and restarted after acute issues resolve When patient returns to baseline, would recommend coronary angiography to jf allan given NSTEMI/demand ischemia on presentation K+ goal 4.5-5 Mag++ goal >2 Continue with aggressive supportive care Please call back when patient has recovered re: potential cardiac catheterization Dylon Sheppard Admission and Anticipated Discharge Date Admission Date: December 04, 2022 Supervising Physician Co-Signing Physician Notes Pt seen and evaluate with [facility] staff Concur with observations and plans Dylon Sheppard Subjective Events overnight: None reported Review of Systems Review of Systems: Unobtainable due to cognitive status Physical Exam Physical Exam: Obese Intubated and sedated JVP difficult to assess S1S2 tachy 2/6 systolic murmur + Abdomen -soft No LE edema Warm and perfusing Results & Data Vital Signs (Past 12 Hours) Vital Signs Temp Pulse Pulse Resp BP Pulse Ox O2 Del Method 12/06/22 06:50 101 H 32 H 99 12/06/22 06:50 101 H 32 H 97 Mechanical Vent 12/06/22 03:00 37.6 C H 97 H 19 97 12/06/22 03:00 114/71 12/06/22 03:38 Mechanical Vent 12/06/22 03:35 12/06/22 03:33 98 H 120/55 L 12/06/22 02:36 108 H 28 H 100 12/06/22 02:00 37.6 C H 104 H 19 99 12/06/22 02:00 122/63 12/06/22 01:00 37.6 C H 108 H 19 99 12/06/22 01:00 110/62 12/06/22 00:00 37.6 C H 92 H 18 100 12/06/22 00:00 115/72 12/05/22 23:00 37.6 C H 88 20 100 12/05/22 23:00 111/65 12/06/22 00:27 Mechanical Vent 12/06/22 00:00 12/06/22 00:00 92 H 120/57 L 12/05/22 23:26 89 12/05/22 22:59 87 29 H 100 12/05/22 22:30 37.6 C H 87 18 100 12/05/22 22:00 37.6 C H 87 19 100 12/05/22 22:00 110/67 12/05/22 21:00 103/61 12/05/22 20:00 111/65 12/05/22 20:00 101 H 114/57 L 12/05/22 19:40 37.8 C H 106 H 20 100 12/05/22 19:30 37.8 C H 101 H 21 92 12/05/22 19:44 89 29 H 94 FiO2 12/06/22 06:50 40 12/06/22 06:50 40 12/06/22 03:00 12/06/22 03:00 12/06/22 03:38 12/06/22 03:35 40 12/06/22 03:33 12/06/22 02:36 40 12/06/22 02:00 12/06/22 02:00 12/06/22 01:00 12/06/22 01:00 12/06/22 00:00 12/06/22 00:00 12/05/22 23:00 12/05/22 23:00 12/06/22 00:27 12/06/22 00:00 50 12/06/22 00:00 12/05/22 23:26 12/05/22 22:59 50 12/05/22 22:30 12/05/22 22:00 12/05/22 22:00 12/05/22 21:00 12/05/22 20:00 12/05/22 20:00 12/05/22 19:40 12/05/22 19:30 12/05/22 19:44 60 Laboratory Results Cardiac Enzymes 12/05/22 Range/Units 11:19 Troponin I High Sens 785.3 H* (0-14) pg/ml CBC 12/06/22 Range/Units 05:27 WBC 18.95 H (4.8-10.8) K/ul RBC 2.86 L (4.20-5.40) M/uL Hgb 7.6 L (12.0-16.0) g/dl Hct 23.6 L (37.0-47.0) % Plt Count 265 (130-400) K/uL Neut # (Auto) 16.63 H (1.40-6.50) K/uL Lymph # (Auto) 1.30 (1.2-3.4) K/uL Cooper # (Auto) 0.82 H (0.11-0.59) K/uL Eos # (Auto) 0.00 (0-0.50) K/uL Baso # (Auto) 0.02 (0-0.2) K/uL Comprehensive Metabolic Panel 12/06/22 Range/Units 05:27 Sodium 139 (136-145) mmol/L Potassium 4.2 (3.5-5.1) mmol/L Chloride 112 H (98-107) mmol/L Carbon Dioxide 21 (21-32) mmol/L BUN 29 H (6-23) mg/dl Creatinine 1.77 H (0.6-1.2) mg/dl Glucose 117 H (70-99(Fasting)) mg/dl Calcium 8.0 L (8.6-10.3) mg/dl Intake and Output 12/05/22 12/06/22 12/06/22 22:59 06:59 14:59 Intake Total 598.013 / 1964.901 685.545 / 1964.901 158.180 / 158.180 Output Total 650 / 3675 600 / 3675 Balance -51.987 / -1710.099 85.545 / -1710.099 158.180 / 158.180 Intake: IV 598.013 / 1504.901 225.545 / 1504.901 158.180 / 158.180 Piperacillin/Tazobactam 4.5 gm 120 / 360 120 / 360 In Dextrose 5% 100 ml @ 30 mls/ hr IV Q8H [facility] Rx#:[id number] Vancomycin HCl 1,250 mg In 275 / 275 Sodium Chloride 0.9% 250 ml @ 200 mls/hr IV Q24H [facility] Rx#: [id number] dexMEDEtomidine 200 mcg In 50 70.378 / 131.683 61.305 / 131.683 9.585 / 9.585 ml @ 0.4 MCG/KG/HR 8.1 mls/hr IV .Q6H11M [facility] Rx#:[id number] fentaNYL citrate 2,500 mcg In 76.875 / 94.875 90.625 / 90.625 250 ml @ 75 MCG/HR 7.5 mls/hr IV .[id number] [facility] Rx#:[id number] propofoL 1,000 mg In 100 ml @ 55.76 / 179.51 44.24 / 179.51 57.97 / 57.97 20 MCG/KG/MIN 10.2 mls/hr IV . Q9H49M [facility] Rx#:[id number] Tube Feeding 210 / 210 Tube Irrigant 250 / 250 Output: Urine Amount (Catheter) 650 / 3675 600 / 3675 [place]/Indwelling 650 / 3675 600 / 3675 Other: Weight 80 kg Weight Measurement Method Built in [facility] Medications Administered Current Inpatient Medications Albuterol (Albuterol 0.083% Nebu Soln 3 Ml Vial) 2.5 mg INH Q6R [facility]; Protocol Stop: 01/03/23 19:44 Last Admin: 12/06/22 06:50 Dose: 2.5 mg Albuterol (Albuterol 0.083% Nebu Soln 3 Ml Vial) 2.5 mg NEB Q4 PRN; Protocol PRN Reason: wheezing, coughing Stop: 01/03/23 21:26 Atorvastatin Calcium (Atorvastatin 40 Mg Tab) 80 mg PO QAM [facility] Stop: 01/04/23 08:59 Last Admin: 12/05/22 08:04 Dose: 80 mg Dextrose (Dextrose 50% 50 Ml Syringe) 25 - 50 ml IV UD PRN; Protocol PRN Reason: Hypoglycemia Protocol Stop: 01/03/23 20:59 Escitalopram Oxalate (Escitalopram Oxalate Oral Soln 20 Mg/20 Ml Udp) 20 mg PO QAM [facility] Stop: 01/04/23 10:29 Last Admin: 12/05/22 10:55 Dose: 20 mg Fentanyl Citrate (Fentanyl Bolus From Bag) 50 mcg IV Q60M PRN PRN Reason: Pain or Agitation Stop: 12/18/22 22:21 Last Admin: 12/06/22 06:32 Dose: 50 mcg Gabapentin (Gabapentin 250 Mg/5 Ml 470 Ml Btl) 300 mg PO BID [facility] Stop: 01/04/23 10:59 Last Admin: 12/05/22 20:06 Dose: 300 mg Glucagon (Glucagon For Inj 1 Mg Vial) 1 mg IM UD PRN; Protocol PRN Reason: Hypoglycemia Protocol Stop: 01/03/23 20:59 Glucose (Glucose 40% Gel 15 Gm Tube) 15 - 30 gm PO UD PRN; Protocol PRN Reason: Hypoglycemia Protocol Stop: 01/03/23 20:59 Glucose (Glucose 10 Tab/Tube) 4 - 8 tab PO UD PRN; Protocol PRN Reason: Hypoglycemia Protocol Stop: 01/03/23 20:59 Heparin Sodium (Porcine) (Heparin Sod 5,000 Unit/0.5 Ml Vial) 5,000 units SQ Q8H [facility] Stop: 01/03/23 18:43 Last Admin: 12/06/22 02:13 Dose: 5,000 units Norepinephrine Bitartrate (Levophed/D5w) 4 mg in 250 mls @ 0 mls/hr IV .Q0M [facility]; Protocol Stop: 01/03/23 15:59 Last Titration: 12/05/22 03:30 Dose: 0 mcg/kg/min, 0 mls/hr Propofol (Diprivan) 1,000 mg in 100 mls @ 10.2 mls/hr IV .Q9H49M [facility]; Protocol Stop: 12/07/22 18:43 Last Titration: 12/06/22 07:10 Dose: 20 mcg/kg/min, 10.2 mls/hr Piperacillin Sod/Tazobactam (Sod 4.5 gm/ Dextrose) 120 mls @ 30 mls/hr IV Q8H [facility]; Protocol Stop: 12/11/22 01:59 Last Infusion: 12/06/22 06:34 Dose: Infused Methylprednisolone 40 mg/ (Syringe) 0.64 mls @ 1.5 mls/min IV BID [facility] Stop: 01/03/23 21:59 Last Admin: 12/05/22 20:07 Dose: 1.5 mls/min Fentanyl Citrate (Fentanyl Citrate) 2,500 mcg in 250 mls @ 7.5 mls/hr IV .[id number] [facility]; Protocol Stop: 12/18/22 22:29 Last Titration: 12/06/22 07:10 Dose: 75 mcg/hr, 7.5 mls/hr Pantoprazole Sodium 40 mg/ (Syringe) 10 mls @ 5 mls/min IV DAILY@1100 [facility] Stop: 01/04/23 10:59 Last Admin: 12/05/22 10:55 Dose: 5 mls/min Azithromycin 250 mg/ Dextrose 252.5 mls @ 125 mls/hr IV DAILY [facility] Stop: 12/12/22 08:59 Last Infusion: 12/05/22 10:07 Dose: Infused Dexmedetomidine/Sodium Chloride (Precedex) 200 mcg in 50 mls @ 8.1 mls/hr IV .Q6H11M [facility]; Protocol Stop: 12/09/22 10:44 Last Titration: 12/06/22 07:10 Dose: 0.4 mcg/kg/hr, 8.1 mls/hr Vancomycin HCl 1,250 mg/ (Sodium Chloride) 275 mls @ 200 mls/hr IV Q24H [facility] Stop: 12/12/22 19:59 Last Infusion: 12/05/22 21:32 Dose: Infused Insulin Aspart (Insulin Aspart Per Unit Charge) 0 units SC Q4 [facility] Stop: 01/04/23 03:59 Last Admin: 12/06/22 04:02 Dose: 2 units Levetiracetam (Levetiracetam Soln 500 Mg/5 Ml Udp) 500 mg NG Q12 [facility] Stop: 01/03/23 21:14 Last Admin: 12/05/22 20:01 Dose: 500 mg Miscellaneous (Carbohydrates For Hypoglycemia ) 15 - 30 gm PO UD PRN PRN Reason: Hypoglycemia Treatment Stop: 01/03/23 20:59 Miscellaneous Information (Vancomycin Consult Active) 1 each N/A UD PRN PRN Reason: Consult Stop: 01/03/23 19:41 Miscellaneous Information (Pharmacy Glycemic Mgmt Consult) 1 each N/A UD PRN; Protocol PRN Reason: Consult Stop: 01/03/23 20:34 Multivitamins/Minerals (Multi Vit W/Minerals Liquid 15 Ml Udp) 15 ml PO QAM [facility] Stop: 01/05/23 08:59 Nutritional Formula (Peptamen Intense Vhp 1.0 Eduard 1,000 Ml Bag) 1,000 ml OG .See Protocol [facility]; Protocol Stop: 01/04/23 10:14 Last Admin: 12/05/22 12:58 Dose: 1,000 ml Polyethylene Glycol (Polyethylene (Miralax) 17 Gm Pack) 17 gm PO DAILY PRN PRN Reason: Constipation Stop: 01/03/23 18:43 Propofol (Propofol Bolus From Bag) 20 mg IV Q5M PRN PRN Reason: Sedation Stop: 12/07/22 18:43 Last Admin: 12/06/22 06:32 Dose: 20 mg Sterile Water (Tube Feeding Water Flush) 30 ml OG Q4H [facility] Stop: 01/04/23 10:14 Last Admin: 12/06/22 05:57 Dose: 30 ml Trimethoprim/Sulfamethoxazole (Sulfamethoxazole/Trimethoprim 200mg/40mg/5ml Susp) 320 mg PO Q6 [facility] Stop: 12/12/22 05:59 Last Admin: 12/06/22 06:01 Dose: 320 mg
[2022-12-06] MEDS: methylPREDNISolone 40 MG in SYRINGE 0 ML IV SCH ×2 (07:43→20:54)
[2022-12-06] MEDS: fentaNYL citrate 2,500 MCG/250 ML BAG IV SCH ×3 (07:46→23:58)
[2022-12-06] MEDS: ATORVASTATIN 40 MG TAB PO SCH (07:53)
[2022-12-06] MEDS: ESCITALOPRAM OXALATE ORAL SOLN 20 MG/20 ML UDP PO SCH (07:53)
[2022-12-06] MEDS: MULTI VIT W/MINERALS LIQUID 15 ML UDP PO SCH (07:53)
[2022-12-06] MEDS: GABAPENTIN 250 MG/5 ML 470 ML BTL PO SCH ×2 (07:53→20:54)
--- NOTE | 2022-12-06 08:02 | XRay Report ---
XR chest 1V portable CLINICAL HISTORY: while intubated- eval ETT, lines, lung christina TECHNIQUE: Single frontal radiograph of the chest was obtained. Comparison: Comparison is made to chest radiograph dated 01/16/2023 FINDINGS: Endotracheal tube terminates 3.6 cm from the misti. Enteric tube side-port and tip lies below the di aphragm. Cardiomegaly is noted. Multifocal airspace opacities are seen. No evidence of pleural effusi on or pneumothorax. IMPRESSION: 1. Satisfactory appearance of enteric and endotracheal tubes. 2. Stable multifocal airspace opacities. ACT 112: Negative or not required by law. Electronically signed by: Moi Ring M.D. 12/06/2022 8:00 AM
[2022-12-06] MEDS: AZITHROMYCIN 250 MG in DEXTROSE 5% 250 ML IV SCH (08:22)
--- NOTE | 2022-12-06 09:00 | Critical Care Progress Note ---
Date of Service December 06, 2022 Assessment & Plan (1) Acute on chronic respiratory failure with hypoxia: Plan: Reason critically ill: Patient is a 42 yo female with a PMH significant for HTN, HLD, COPD requiring 3L NC at night, , diastolic HF, seizure disorder, and hx of polysubstance abuse (methamphetamine, opioids, cannabis) who presented with SOB and cough. She was found to be in respiratory failure and hypotensive- she was admitted to the ICU after intubation and blood pressure management requiring vasopressors. Neuro: Hx of seizure disorder, currently intubated/sedated Sedation: propofol, precedex- Analgesia: fentanyl- VIOLETA goal of -1 to -2 - urine tox neg - continue to hold home psychoactive medications; suboxone, buspirone, cyclobenzaprine, trazodone - continue with home keppra 500 mg BID - continue gabapentin and lexapro to avoid withdrawal Cardiac: Septic shock, CAD, HTN, HLD, diastolic heart failure - Septic shock secondary to pulmonary source with subsequent organ dysfunction - Lactate downtrended; BP continues to be stable w/o vasopressors - echo upon admission showed hyperdynamic LV with EF of 70%, moderate-severe - troponin peaked at 843 but has since downtrended- likely demand in the setting of sepsis - pt in net negative fluid balance which could be contributing to her respiratory improvement Respiratory: Acute on chronic respiratory failure, bilateral atypical pneumonia, asthma/COPD - CXR, exam, and vent settings improvement from yesterday - continue scheduled albuterol, IV steroids - atypical studies pending (legionella, cryptococcus, histo, aspergillus, PJP) - current ABX therapy: zosyn, azithromycin (5 day course), and bactrim - bronchoscopy gram stain neg, other studies pending GI: No acute concerns - NPO, OG tube in place - GI ppx ordered - continue trickle feeds Renal/electrolytes: AJIT, hypocalcemia, hypomagnesemia, hyperphosphatemia - Cr continuing to improve - replace electrolytes as needed : No acute concerns - bell in place Endo: DM - Follow ICU hyperglycemic protocols Heme: Leukocytosis with left shift, worsening chronic normocytic anemia - B12 low normal, folate WNL, iron <10, ferritin 101 - although pt appears iron deficient, will not supplement in the setting of active infection - Haptoglobin, reticulocyte count ordered to evaluate for hemolysis - continue to monitor Hgb, WBC ID: Atypical bilateral pneumonia with ground glass opacities - MRSA nares neg; blood cx neg- will d/c vanco - BAL gram stain neg, other studies pending - urine cx showed pinpoint growth - atypical studies pending, HIV test neg - continue zosyn, azithromycin, and bactrim Lines/IV access: - central line and arterial line in place DVT ppx: - heparin, SCDs Please refer to Dr. Armenta's documentation for any further recommendations. (2) Multifocal pneumonia: (3) Chronic diastolic CHF (congestive heart failure): (4) HLD (hyperlipidemia): (5) HTN (hypertension): (6) Aortic stenosis: (7) Diabetes mellitus, type 2: (8) Coronary artery disease: (9) Seizure disorder: Admission and Anticipated Discharge Date Admission Date: December 04, 2022 Supervising Physician Co-Signing Physician Notes Patient seen and examined. EMR reviewed. Discussed on multidisciplinary rounds and with bedside critical care nurse as well as with family practice resident. Agree with assessment plan as noted above with the following exceptions. The patient is shown improvement in her oxygenation. Her PF ratio is better. She is tolerating pressure support ventilation with pressure support of 4 and PEEP of 6 and FiO2 0.4 with adequate oxygenation. Given the rapid improvement, unclear if this is related to steroids or volume removal. The clinical improvement appears too rapid to be associated with an infectious process although there may be some superimposed infection. Will discontinue vancomycin. Continue Zosyn. Awaiting PJP studies as well as Legionella antigen so we will continue azithromycin and Bactrim and steroids. Sedation is somewhat problematic. Continue Precedex for now. Will try and wean propofol and fentanyl as tolerated. Cardiology has recommended cardiac catheterization at some point to evaluate coronary anatomy. Will continue Plavix and aspirin. If she continues to improve, may consider SBT and potential trial of extubation in the next 12 to 24 hours. No family immediately available Subjective Pt remains intubated and sedated this AM. Appears comfortable and neurologically reactive to stimuli. Review of Systems Review of Systems: Unobtainable due to endotracheal tube Physical Exam Physical Exam: Constitutional: ill appearing, no acute distress HEENT: normocephalic, no conjunctival injection, PERRL CV: regular rhythm, regular rate, 2/6 systolic murmur noted, no LE edema Respiratory: Course breath sounds heard throughout, improved from yesterday. No wheezing or crackles. No increased work of breathing GI: soft, nondistended, positive bowel sounds MSK: no gross deformities noted Neuro: sedated, reactive to painful stimuli, moving all 4 limbs appropriately Results & Data Results & Data Vital Signs (Past 12 Hours) Vital Signs Temp Pulse Pulse Resp BP Pulse Ox O2 Del Method 12/06/22 08:00 37.7 C H 95 H 34 H 97 Mechanical Vent 12/06/22 08:00 120/73 12/06/22 07:00 37.6 C H 96 H 34 H 99 12/06/22 07:00 117/70 12/06/22 08:13 Mechanical Vent 12/06/22 08:00 12/06/22 08:00 Mechanical Vent 12/06/22 08:00 94 H 129/61 12/06/22 08:00 95 H 12/06/22 06:50 101 H 32 H 99 12/06/22 06:50 101 H 32 H 97 Mechanical Vent 12/06/22 03:00 37.6 C H 97 H 19 97 12/06/22 03:00 114/71 12/06/22 03:38 Mechanical Vent 12/06/22 03:35 12/06/22 03:33 98 H 120/55 L 12/06/22 02:36 108 H 28 H 100 12/06/22 02:00 37.6 C H 104 H 19 99 12/06/22 02:00 122/63 12/06/22 01:00 37.6 C H 108 H 19 99 12/06/22 01:00 110/62 12/06/22 00:00 37.6 C H 92 H 18 100 12/06/22 00:00 115/72 12/05/22 23:00 37.6 C H 88 20 100 12/05/22 23:00 111/65 12/06/22 00:27 Mechanical Vent 12/06/22 00:00 12/06/22 00:00 92 H 120/57 L 12/05/22 23:26 89 12/05/22 22:59 87 29 H 100 12/05/22 22:30 37.6 C H 87 18 100 12/05/22 22:00 37.6 C H 87 19 100 12/05/22 22:00 110/67 12/05/22 21:00 103/61 FiO2 12/06/22 08:00 12/06/22 08:00 12/06/22 07:00 12/06/22 07:00 12/06/22 08:13 12/06/22 08:00 40 12/06/22 08:00 40 12/06/22 08:00 12/06/22 08:00 12/06/22 06:50 40 12/06/22 06:50 40 12/06/22 03:00 12/06/22 03:00 12/06/22 03:38 12/06/22 03:35 40 12/06/22 03:33 12/06/22 02:36 40 12/06/22 02:00 12/06/22 02:00 12/06/22 01:00 12/06/22 01:00 12/06/22 00:00 12/06/22 00:00 12/05/22 23:00 12/05/22 23:00 12/06/22 00:27 12/06/22 00:00 50 12/06/22 00:00 12/05/22 23:26 12/05/22 22:59 50 12/05/22 22:30 12/05/22 22:00 12/05/22 22:00 12/05/22 21:00 Resident Activity Tracking Resident Involvement: Resident Care Provided Care Provided: Adult Hospital Medicine (ICU) (7) Diabetes mellitus, type 2 Diabetes mellitus complication status: with unspecified complications Diabetes mellitus fdc insulin use: without fdc use Qualified Code(s): E11.8 - Type 2 diabetes mellitus with unspecified complications
--- NOTE | 2022-12-06 09:27 | Hospitalist Progress Note ---
Date of Service December 06, 2022 Assessment & Plan (1) Septic shock: Plan: 2/2 pneumonia, she is off pressors (2) Acute on chronic respiratory failure with hypoxia: Plan: continues on pressor support and steroids, per ICU team, if she continues to improve will perform spontaneous breathing trial in 12 to 24 hours. (3) Multifocal pneumonia: Plan: Admitted to ICU Patient presenting from home with reports of worsening shortness of breath. Initially required 15L NRB and subsequent intubation in the ER due to respiratory distress. On presentation, hypotensive requiring Levophed, tachycardic, WBC 29 K, lactic acid 4.1, creatinine 2.2 CT chest showing multifocal pneumonia, bedside echo confirmed she was not volume overloaded Cont Zosyn, azithromycin, Bactrim with Vanc discontinued Blood cultures negative to date Status post bronchoscopy on 12/05-results are pending Remains sedated on ventilator (4) Elevated troponin: Plan: 2/2 demand ischemia per cardiology in setting os sepiss (5) Coronary artery disease: Plan: Initial troponin was 843 and subsequent troponins did not show any increased No reports of chest pain, EKG without acute ST changes Stat echo obtained in ED with cardiology at the bedside --no wall motion abnormalities noted, EF 60% Elevated troponins likely secondary to sepsis with strain Appreciate cardiology input and recommendation Will continue aspirin 81 mg daily and Plavix (6) Chronic diastolic CHF (congestive heart failure): Plan: chronic typically on torsemide bid, she did receive one dose of furosemide 20mg IV this admission, however, resp failure attributed mostly to infection at this point. (7) Aortic stenosis: Plan: moderate, chronic, monitor volume status during resuscitation. (8) Seizure disorder: Plan: chronic, stable. Cont AED (9) Polysubstance abuse: Plan: History of, on Suboxone DVT PROPHYLAXIS SQ heparin Full Code Zina Smith DO [facility] Hospitalist Admission and Anticipated Discharge Date Admission Date: December 04, 2022 Subjective 42-year-old critically ill female presented with septic shock secondary to pneumonia. She remains intubated and sedated on Precedex She easily awakens to physical touch but remains calm She is on pressor support Vancomycin was discontinued, continue Zosyn, azithromycin and Bactrim and steroids Tube feeds running through OG tube at trickle rate of 10 cc an hour. Review of Systems Review of Systems: Could not obtain review of systems as she is sedated and intubated. Physical Exam Physical Exam: CONSTITUTIONAL: WNWD, vitals as above, generally well-appearing, NAD EYES: pupils are round and equal bilaterally, normal conjunctivae, no scleral icterus, ENT: external ear and nose normal, oropharynx clear, NECK: trachea midline, ETT in place RESPIRATORY: coarse rhonchi throughout CARDIOVASCULAR: regular rate and rhythm, S1 and 2 heard without murmurs, gallops or rubs, no JVD, no peripheral edema CHEST: inspection of chest was normal GASTROINTESTINAL: soft, nontender, ND, no guarding MUSCULOSKELETAL: sedated, cannot assess, WNWD SKIN: warm and dry NEUROLOGIC: sedated, cannot assess PSYCHIATRIC: sedated Results & Data Results & Data Vital Signs (Past 12 Hours) Vital Signs Temp Pulse Pulse Resp BP Pulse Ox O2 Del Method 12/06/22 08:00 37.7 C H 95 H 34 H 97 Mechanical Vent 12/06/22 08:00 120/73 12/06/22 07:00 37.6 C H 96 H 34 H 99 12/06/22 07:00 117/70 12/06/22 08:13 Mechanical Vent 12/06/22 08:00 12/06/22 08:00 Mechanical Vent 12/06/22 08:00 94 H 129/61 12/06/22 08:00 95 H 12/06/22 06:50 101 H 32 H 99 12/06/22 06:50 101 H 32 H 97 Mechanical Vent 12/06/22 03:00 37.6 C H 97 H 19 97 12/06/22 03:00 114/71 12/06/22 03:38 Mechanical Vent 12/06/22 03:35 12/06/22 03:33 98 H 120/55 L 12/06/22 02:36 108 H 28 H 100 12/06/22 02:00 37.6 C H 104 H 19 99 12/06/22 02:00 122/63 12/06/22 01:00 37.6 C H 108 H 19 99 12/06/22 01:00 110/62 12/06/22 00:00 37.6 C H 92 H 18 100 12/06/22 00:00 115/72 12/05/22 23:00 37.6 C H 88 20 100 12/05/22 23:00 111/65 12/06/22 00:27 Mechanical Vent 12/06/22 00:00 12/06/22 00:00 92 H 120/57 L 12/05/22 23:26 89 12/05/22 22:59 87 29 H 100 12/05/22 22:30 37.6 C H 87 18 100 12/05/22 22:00 37.6 C H 87 19 100 12/05/22 22:00 110/67 FiO2 12/06/22 08:00 12/06/22 08:00 12/06/22 07:00 12/06/22 07:00 12/06/22 08:13 12/06/22 08:00 40 12/06/22 08:00 40 12/06/22 08:00 12/06/22 08:00 12/06/22 06:50 40 12/06/22 06:50 40 12/06/22 03:00 12/06/22 03:00 12/06/22 03:38 12/06/22 03:35 40 12/06/22 03:33 12/06/22 02:36 40 12/06/22 02:00 12/06/22 02:00 12/06/22 01:00 12/06/22 01:00 12/06/22 00:00 12/06/22 00:00 12/05/22 23:00 12/05/22 23:00 12/06/22 00:27 12/06/22 00:00 50 12/06/22 00:00 12/05/22 23:26 12/05/22 22:59 50 12/05/22 22:30 12/05/22 22:00 12/05/22 22:00 Laboratory Results Short CBC 12/06/22 Range/Units 05:27 WBC 18.95 H (4.8-10.8) K/ul Hgb 7.6 L (12.0-16.0) g/dl Hct 23.6 L (37.0-47.0) % Plt Count 265 (130-400) K/uL BMP 12/06/22 05:27 Sodium 139 Potassium 4.2 Chloride 112 H Carbon Dioxide 21 BUN 29 H Creatinine 1.77 H Glucose 117 H Calcium 8.0 L Diagnostic Findings Chest X-Ray 12/06/22 00:30 XR chest 1V portable CLINICAL HISTORY: while intubated- eval ETT, lines, lung christina TECHNIQUE: Single frontal radiograph of the chest was obtained. Comparison: Comparison is made to chest radiograph dated 01/16/2023 FINDINGS: Endotracheal tube terminates 3.6 cm from the misti. Enteric tube side-port and tip lies below the diaphragm. Cardiomegaly is noted. Multifocal airspace opacities are seen. No evidence of pleural effusion or pneumothorax. IMPRESSION: 1. Satisfactory appearance of enteric and endotracheal tubes. 2. Stable multifocal airspace opacities. ACT 112: Negative or not required by law. Electronically signed by: Moi Ring M.D. 12/06/2022 8:00 AM Medications Administered Current Inpatient Medications Albuterol (Albuterol 0.083% Nebu Soln 3 Ml Vial) 2.5 mg INH Q6R WILMA; Protocol Stop: 01/03/23 19:44 Last Admin: 12/06/22 06:50 Dose: 2.5 mg Albuterol (Albuterol 0.083% Nebu Soln 3 Ml Vial) 2.5 mg NEB Q4 PRN; Protocol PRN Reason: wheezing, coughing Stop: 01/03/23 21:26 Atorvastatin Calcium (Atorvastatin 40 Mg Tab) 80 mg PO QAM [facility] Stop: 01/04/23 08:59 Last Admin: 12/06/22 07:53 Dose: 80 mg Dextrose (Dextrose 50% 50 Ml Syringe) 25 - 50 ml IV UD PRN; Protocol PRN Reason: Hypoglycemia Protocol Stop: 01/03/23 20:59 Escitalopram Oxalate (Escitalopram Oxalate Oral Soln 20 Mg/20 Ml Udp) 20 mg PO QAM [facility]IL[facility] Stop: 01/04/23 10:29 Last Admin: 12/06/22 07:53 Dose: 20 mg Fentanyl Citrate (Fentanyl Bolus From Bag) 50 mcg IV Q60M PRN PRN Reason: Pain or Agitation Stop: 12/18/22 22:21 Last Admin: 12/06/22 06:32 Dose: 50 mcg Gabapentin (Gabapentin 250 Mg/5 Ml 470 Ml Btl) 300 mg PO BID [facility]IL[facility] Stop: 01/04/23 10:59 Last Admin: 12/06/22 07:53 Dose: 300 mg Glucagon (Glucagon For Inj 1 Mg Vial) 1 mg IM UD PRN; Protocol PRN Reason: Hypoglycemia Protocol Stop: 01/03/23 20:59 Glucose (Glucose 40% Gel 15 Gm Tube) 15 - 30 gm PO UD PRN; Protocol PRN Reason: Hypoglycemia Protocol Stop: 01/03/23 20:59 Glucose (Glucose 10 Tab/Tube) 4 - 8 tab PO UD PRN; Protocol PRN Reason: Hypoglycemia Protocol Stop: 01/03/23 20:59 Heparin Sodium (Porcine) (Heparin Sod 5,000 Unit/0.5 Ml Vial) 5,000 units SQ Q8H [facility] Stop: 01/03/23 18:43 Last Admin: 12/06/22 02:13 Dose: 5,000 units Norepinephrine Bitartrate (Levophed/D5w) 4 mg in 250 mls @ 0 mls/hr IV .Q0M [facility]ILMA; Protocol Stop: 01/03/23 15:59 Last Titration: 12/05/22 03:30 Dose: 0 mcg/kg/min, 0 mls/hr Propofol (Diprivan) 1,000 mg in 100 mls @ 10.2 mls/hr IV .Q9H49M [facility]ILMA; Protocol Stop: 12/07/22 18:43 Last Admin: 12/06/22 07:49 Dose: 20 mcg/kg/min, 10.2 mls/hr Piperacillin Sod/Tazobactam (Sod 4.5 gm/ Dextrose) 120 mls @ 30 mls/hr IV Q8H [facility]IL[facility]; Protocol Stop: 12/11/22 01:59 Last Infusion: 12/06/22 06:34 Dose: Infused Methylprednisolone 40 mg/ (Syringe) 0.64 mls @ 1.5 mls/min IV BID [facility] Stop: 01/03/23 21:59 Last Admin: 12/06/22 07:43 Dose: 1.5 mls/min Fentanyl Citrate (Fentanyl Citrate) 2,500 mcg in 250 mls @ 7.5 mls/hr IV .[id number] [facility]ILMA; Protocol Stop: 12/18/22 22:29 Last Admin: 12/06/22 07:46 Dose: 75 mcg/hr, 7.5 mls/hr Pantoprazole Sodium 40 mg/ (Syringe) 10 mls @ 5 mls/min IV DAILY@1100 [facility] Stop: 01/04/23 10:59 Last Admin: 12/05/22 10:55 Dose: 5 mls/min Azithromycin 250 mg/ Dextrose 252.5 mls @ 125 mls/hr IV DAILY [facility] Stop: 12/12/22 08:59 Last Admin: 12/06/22 08:22 Dose: 125 mls/hr Dexmedetomidine/Sodium Chloride (Precedex) 200 mcg in 50 mls @ 8.1 mls/hr IV .Q6H11M [facility]; Protocol Stop: 12/09/22 10:44 Last Titration: 12/06/22 07:10 Dose: 0.4 mcg/kg/hr, 8.1 mls/hr Vancomycin HCl 1,250 mg/ (Sodium Chloride) 275 mls @ 200 mls/hr IV Q24H [facility] Stop: 12/12/22 19:59 Last Infusion: 12/05/22 21:32 Dose: Infused Insulin Aspart (Insulin Aspart Per Unit Charge) 0 units SC Q4 [facility] Stop: 01/04/23 03:59 Last Admin: 12/06/22 07:50 Dose: Not Given Insulin Glargine (Lantus Per Unit Charge) 0 units SC TODAY@2000 ONE; Protocol Stop: 12/06/22 20:01 Levetiracetam (Levetiracetam Soln 500 Mg/5 Ml Udp) 500 mg NG Q12 [facility] Stop: 01/03/23 21:14 Last Admin: 12/06/22 07:53 Dose: 500 mg Miscellaneous (Carbohydrates For Hypoglycemia ) 15 - 30 gm PO UD PRN PRN Reason: Hypoglycemia Treatment Stop: 01/03/23 20:59 Miscellaneous Information (Vancomycin Consult Active) 1 each N/A UD PRN PRN Reason: Consult Stop: 01/03/23 19:41 Miscellaneous Information (Pharmacy Glycemic Mgmt Consult) 1 each N/A UD PRN; Protocol PRN Reason: Consult Stop: 01/03/23 20:34 Multivitamins/Minerals (Multi Vit W/Minerals Liquid 15 Ml Udp) 15 ml PO QAM [facility] Stop: 01/05/23 08:59 Last Admin: 12/06/22 07:53 Dose: 15 ml Nutritional Formula (Peptamen Intense Vhp 1.0 Eduard 1,000 Ml Bag) 1,000 ml OG .See Protocol [facility]ILMA; Protocol Stop: 01/04/23 10:14 Last Admin: 12/05/22 12:58 Dose: 1,000 ml Polyethylene Glycol (Polyethylene (Miralax) 17 Gm Pack) 17 gm PO DAILY PRN PRN Reason: Constipation Stop: 01/03/23 18:43 Propofol (Propofol Bolus From Bag) 20 mg IV Q5M PRN PRN Reason: Sedation Stop: 12/07/22 18:43 Last Admin: 12/06/22 06:32 Dose: 20 mg Sterile Water (Tube Feeding Water Flush) 30 ml OG Q4H [facility] Stop: 01/04/23 10:14 Last Admin: 12/06/22 05:57 Dose: 30 ml Trimethoprim/Sulfamethoxazole (Sulfamethoxazole/Trimethoprim 200mg/40mg/5ml Susp) 320 mg PO Q6 [facility] Stop: 12/12/22 05:59 Last Admin: 12/06/22 06:01 Dose: 320 mg
[2022-12-06] MEDS: PANTOprazole 40 MG in SYRINGE 0 ML IV SCH (10:22)
[2022-12-06 10:39] LABS: Reticulocyte % 1.5 % (0.5-2.0); Reticulocytes # 0.04 10^6/uL (0.02-0.10)
--- NOTE | 2022-12-06 11:12 | Electrocardiogram Report ---
Test Reason : Blood Pressure : / mmHG Vent. Rate : 097 BPM Atrial Rate : 097 BPM P-R Int : 146 ms QRS Dur : 080 ms QT Int : 358 ms P-R-T Axes : 060 045 065 degrees QTc Int : 454 ms Poor data quality, interpretation may be adversely affected Normal sinus rhythm Normal ECG When compared with ECG of 05-DEC-2022 04:59, No significant change was found Confirmed by Liu Harrington ([id number]) on 12/06/2022 11:12:00 AM Referred By: REFERRED SELF Confirmed By:Angus Harrington
--- NOTE | 2022-12-06 12:04 | Pharmacy Report ---
Pharmacy Glycemic Short Note 2 - Date of Service December 06, 2022 - Glycemic Short BSG Results (Last 24 hours): 12/05/22 12/05/22 12/05/22 15:59 16:00 19:44 Glucose POC Glucose 204 H 183 H 163 H 12/05/22 12/06/22 12/06/22 23:35 03:54 05:27 Glucose 117 H POC Glucose 163 H 165 H 12/06/22 12/06/22 07:39 11:53 Glucose POC Glucose 120 H 170 H OUTPATIENT ANTIDIABETIC REGIMEN: * metformin 1000mg BID * A1c: 6.0 12/05/22 ASSESSMENT: 12/06 * Patient remains critically ill in ICU - goal BSG 140-180 mg/dL. Remains on steroids and Peptamen trickle feeds. * BSG below goal of 140-180 mg/dL x1 this AM. Will hold Lantus for now. Will resume this evening if BSG > 180 mg/dL * Keep Novolog as correctional only. Goal range in *order* is 110-140 mg/dL (to provide some "basal" insulin as Novolog mini boluses for BSG's between 140-180 mg/dL if BSG is >140 mg/dL, but will also hold "basal" Novolog if BSG again falls below 140 mg/dL) 12/05 * Patient presenting with sepsis/pneumonia experiencing hyperglycemia on admission. * Patient received a total 24 units of insulin yesterday (10 basal, 14 bolus) * Patient is continued on IV solumedrol 40mg q12 and was initiated on trickle feeds this morning * BSGs normalized this morning with a fasting of 137mg/dL. Will order a small dose of lantus and proceed with CF only for now. IF TFs increased, Carb coverage likely will need to be added. PLAN FOR INPATIENT GLYCEMIC CONTROL: * Hold outpatient oral diabetes medications * Basal insulin * Hold Lantus this AM. Give 5 units in PM if BSG > 180 mg/dL * Bolus insulin * NovoLog per scale q4h * Goal Range: Low 110 mg/dL - High 140 mg/dL * Correction Factor: 20 mg/dL/unit * Nutritional / Prandial insulin none while NPO/on trickle feeds
[2022-12-06 13:01] LABS: BUN Creatinine Ratio 15.6 (10-20); Calcium 8.1 mg/dl (8.6-10.3); Est GFR (African American) 40.9 ml/min; Est GFR (Non-African American) 35.3 ml/min; Magnesium 2.3 mg/dl (1.7-2.4); Potassium 4.3 mmol/L (3.5-5.1)
--- NOTE | 2022-12-06 13:18 | Billing Data ---
Date of Service December 06, 2022 Coding Level of Care Code 16268 SUB INP/OBS CARE MIN
[2022-12-06] MEDS: ASPIRIN 81 MG CHEW PO SCH (13:44)
[2022-12-06] MEDS: CLOPIDOGREL BISULFATE 75 MG TAB PO SCH (13:44)
[2022-12-06] MEDS ORDERED: LANTUS PER UNIT CHARGE SC ONE (20:00)
[2022-12-07] MEDS: SULFAMETHOXAZOLE/TRIMETHOPRIM 200MG/40MG/5ML SUSP PO SCH ×4 (00:04→18:03)
[2022-12-07] MEDS: INSULIN ASPART PER UNIT CHARGE SC SCH ×6 (00:05→20:58)
[2022-12-07] MEDS: dexMEDEtomidine 200 MCG/50 ML BAG IV SCH ×5 (01:41→10:21)
[2022-12-07] MEDS: propofoL 1,000 MG/100 ML VIAL IV SCH (01:41)
[2022-12-07] MEDS: PIPERACILLIN/TAZOBACTAM 4.5 GM in DEXTROSE 5% 100 ML IV SCH ×3 (01:52→18:03)
[2022-12-07] MEDS: TUBE FEEDING WATER FLUSH OG SCH ×6 (01:53→20:58)
[2022-12-07] MEDS: HEPARIN SOD 5,000 UNIT/0.5 ML VIAL SQ SCH ×3 (01:55→18:03)
[2022-12-07 04:31] LABS: iSTAT Art Bld Gas pCO2 Correct 33 mmHg (35-46); iSTAT Arterial Blood Gas HCO3 20 meg/L (19-24); iSTAT Arterial Blood Gas pCO2 32 mmHg (35-46); iSTAT Arterial Blood Gas pO2 86 mmHg (80-95); iSTAT Arterial Blood Gas pO2 C 91; iSTAT Carbon Dioxide 21 mmol/L (24-31); iSTAT FiO2 40 %; iSTAT Hematocrit 20 % (37-47); iSTAT Hemoglobin 6.8 g/dl (12.0-16.0); iSTAT Potassium 4.4 mmol/L (3.3-5.0); iSTAT Site Art Line; iSTAT Sodium 142 mmol/L (135-144)
[2022-12-07 06:16] LABS: Basophils # (auto) 0.01 K/uL (0-0.2); Basophils % (auto) 0.1 %; Eosinophils # (auto) 0.01 K/uL (0-0.50); Eosinophils % (auto) 0.1 %; Hematocrit (blood only) 25.1 % (37.0-47.0); Hemoglobin 7.9 g/dl (12.0-16.0); Immature Granulocytes # (auto) 0.19 K/uL (0.01-0.20); Immature Granulocytes % (auto) 1.2 %; Lymphocytes # (auto) 2.47 K/uL (1.2-3.4); Lymphocytes % (auto) 15.9 %; Mean Corpuscular Hemoglobin 26.2 pg (25.0-34.0); Mean Corpuscular Hgb Conc 31.5 g/dL (32.0-36.0); Mean Corpuscular Volume 83.1 fL (80.0-100.0); Monocytes # (auto) 0.75 K/uL (0.11-0.59); Monocytes % (auto) 4.8 %; Neutrophils # (auto) 12.07 K/uL (1.40-6.50); Neutrophils % (auto) 77.9 %; Platelet Count 298 K/uL (130-400); RDW Coefficient of Variation 20.1 % (11.5-14.5); RDW Standard Deviation 60.5 fL (36.4-46.3); Red Blood Count 3.02 M/uL (4.20-5.40)
[2022-12-07 06:37] LABS: BUN Creatinine Ratio 14.6 (10-20); Calcium 8.4 mg/dl (8.6-10.3); Creatinine Clr Calc Pharmacy 44.8 ml/min; Est GFR (African American) 43.6 ml/min; Est GFR (Non-African American) 37.6 ml/min; Magnesium 2.5 mg/dl (1.7-2.4); Phosphorus 4.8 mg/dl (2.5-4.9); Potassium 4.4 mmol/L (3.5-5.1)
[2022-12-07 06:54] LABS: Anisocytosis Present; Polychromasia 1+
[2022-12-07] MEDS: ALBUTEROL 0.083% NEBU SOLN 3 ML VIAL INH SCH ×3 (07:30→19:49)
--- NOTE | 2022-12-07 07:36 | Critical Care Progress Note ---
Date of Service December 07, 2022 Assessment & Plan (1) Acute on chronic respiratory failure with hypoxia: Plan: Reason critically ill: Patient is a 42 yo female with a PMH significant for HTN, HLD, COPD requiring 3L NC at night, , diastolic HF, seizure disorder, and hx of polysubstance abuse (methamphetamine, opioids, cannabis) who presented with SOB and cough. She was found to be in respiratory failure and hypotensive- she was admitted to the ICU after intubation and blood pressure management requiring vasopressors. Neuro: Hx of seizure disorder Sedation/analgesia: weaned off prior to extubation - urine tox neg - continue to hold home psychoactive medications; suboxone, buspirone, cyclobenzaprine, trazodone - continue with home keppra 500 mg BID - continue gabapentin and lexapro to avoid withdrawal - speech eval ordered; will advance diet/PO meds pending evaluation Cardiac: Septic shock, CAD, HTN, HLD, diastolic heart failure - Septic shock secondary to pulmonary source with subsequent organ dysfunction - Lactate downtrended; BP continues to be stable w/o vasopressors - echo upon admission showed hyperdynamic LV with EF of 70%, moderate-severe - troponin peaked at 843 but has since downtrended- likely demand in the setting of sepsis - per cardiology, recommend angiography to evaluate ischemia once pt returns to baseline - given 40 mg lasix today; -1.7 L since admission Respiratory: Acute on chronic respiratory failure, bilateral atypical pneumonia, asthma/COPD - CXR, exam, and vent settings continue to show improvement; plan for extubation today - continue scheduled albuterol, IV steroids - atypical studies pending (legionella, cryptococcus, histo, aspergillus, PJP) - current ABX therapy: zosyn (day 3), azithromycin (day 3 of 5 day course), and bactrim (day 3) - bronchoscopy gram stain neg, other studies pending GI: No acute concerns - NPO, OG tube in place - continue GI ppx - continue trickle feeds Renal/electrolytes: AJIT, hypocalcemia, hypomagnesemia, hyperphosphatemia - Cr continuing to improve - replace electrolytes as needed : No acute concerns - bell in place Endo: DM - Follow ICU hyperglycemic protocols Heme: Leukocytosis with left shift, worsening chronic normocytic anemia - B12 low normal, folate WNL, iron <10, ferritin 101 - although pt appears iron deficient, will not supplement in the setting of active infection - reticulocyte normal; haptoglobin pending - continue to monitor Hgb, WBC ID: Atypical bilateral pneumonia with ground glass opacities - MRSA nares neg; blood cx neg - BAL gram stain neg, fungal smear neg, AFB neg; cultures pending - urine cx neg - atypical studies pending, HIV test neg - continue zosyn, azithromycin, and bactrim; will continue broad coverage until further studies result Lines/IV access: - central line and arterial line in place; plan to d/c arterial line once pt remains stable after extubation DVT ppx: - heparin, SCDs Please refer to Dr. Armenta's documentation for any further recommendations. (2) Multifocal pneumonia: (3) Chronic diastolic CHF (congestive heart failure): (4) HLD (hyperlipidemia): (5) HTN (hypertension): (6) Aortic stenosis: (7) Diabetes mellitus, type 2: (8) Coronary artery disease: (9) Seizure disorder: Admission and Anticipated Discharge Date Admission Date: December 04, 2022 Supervising Physician Co-Signing Physician Notes Patient seen and examined. EMR reviewed. Discussed with bedside critical care nurse and on multidisciplinary rounds as well as with family practice resident. Agree with assessment plan as noted. Patient continues to show significant clinical improvement. A radiograph is a little more hazy today. 1 dose of Lasix was administered. She had been on pressure support ventilation with a rapid shallow breathing index between 60 and 70 for several hours. Will extubate on Precedex. Will use Zyprexa IM if needed for agitation. Once the patient is extubated we will get speech therapy evaluation and advance diet if her swallow is functional. She will need PT OT and out of bed to chair as tolerated. Can discontinue arterial line. Will keep central line for now but can likely be discontinued in the next 12 hours. Bell catheter can also come out at some point in time. With regards to her antimicrobial therapy, or awaiting final results from the bronchoscopy cultures. Seems reasonable to continue azithromycin until Legionella is resulted as well as Bactrim until PJP is resulted. With regards to her antimicrobial therapy, or awaiting final results from the bronchoscopy cultures. Seems reasonable to continue azithromycin until Legionella is resulted as well as Bactrim until PJP is resulted. Can decrease her prednisone to oral once she is taking pills. Determination how long to continue this medication will be somewhat problematic as it is typically 21 days for PJP although this clinical scenario appears to be less and less consistent with that and more consistent with fluid overload. Would continue Bactrim and steroids for now but can transition to oral prednisone. Will likely follow in ICU 1 additional day to ensure her respiratory status is improving. If she has issues, CPAP or BiPAP might be appropriate Subjective Pt remains intubated and sedated. Sedation being weaned yesterday as able. Review of Systems Review of Systems: Unobtainable due to endotracheal tube Physical Exam Physical Exam: Constitutional: ill appearing, no acute distress HEENT: normocephalic, no conjunctival injection CV: regular rhythm, regular rate, 2/6 systolic murmur, no LE edema Respiratory: Course, diminished breath sounds throughout. No wheezes or crackles. GI: soft, nondistended, nontender MSK: no gross deformities noted Skin: warm, dry, no rashes Neuro: follows commands, spontaneously moves all 4 extremities Results & Data Results & Data Vital Signs (Past 12 Hours) Vital Signs Temp Pulse Resp BP Pulse Ox O2 Del Method FiO2 12/07/22 07:30 89 28 H 96 40 12/07/22 06:15 37.6 C H 93 H 28 H 98 12/07/22 06:00 37.7 C H 98 H 32 H 99 12/07/22 06:00 130/78 12/07/22 05:45 37.6 C H 100 12/07/22 05:30 37.7 C H 85 23 96 12/07/22 05:15 37.8 C H 86 25 H 95 12/07/22 05:00 37.8 C H 84 23 97 12/07/22 04:45 37.8 C H 85 24 96 12/07/22 04:30 37.8 C H 85 22 97 12/07/22 04:15 37.8 C H 85 23 97 12/07/22 04:00 37.9 C H 86 23 96 12/07/22 03:45 37.9 C H 86 23 95 12/07/22 03:30 37.8 C H 86 27 H 96 12/07/22 04:00 40 12/07/22 04:00 144/67 H 12/07/22 03:15 37.8 C H 89 25 H 94 12/07/22 03:00 37.8 C H 89 28 H 95 12/07/22 02:45 37.8 C H 88 24 95 12/07/22 02:30 37.8 C H 92 H 27 H 96 12/07/22 02:15 37.8 C H 94 H 29 H 98 12/07/22 02:00 37.8 C H 91 H 29 H 96 12/07/22 01:45 37.8 C H 95 H 22 96 12/07/22 01:30 37.8 C H 93 H 30 H 98 12/07/22 01:15 37.8 C H 94 H 26 H 97 12/07/22 01:00 37.8 C H 96 H 24 98 12/07/22 00:45 37.8 C H 98 H 30 H 98 12/07/22 00:30 37.8 C H 100 H 27 H 98 12/07/22 00:15 37.9 C H 99 H 17 98 12/07/22 02:10 94 H 28 H 96 40 12/07/22 00:00 37.9 C H 93 H 23 98 12/06/22 23:30 37.9 C H 85 26 H 99 12/06/22 23:00 37.8 C H 87 30 H 99 12/06/22 22:30 37.7 C H 86 26 H 99 12/06/22 22:00 37.6 C H 91 H 30 H 100 12/06/22 21:30 37.6 C H 87 26 H 100 12/06/22 21:00 37.6 C H 85 27 H 99 12/07/22 00:00 40 12/07/22 00:00 125/53 L 12/06/22 22:02 85 26 H 100 40 12/06/22 20:30 37.6 C H 86 29 H 100 12/06/22 20:15 37.6 C H 89 28 H 100 12/06/22 20:00 37.6 C H 92 H 26 H 99 12/06/22 19:45 37.7 C H 96 H 27 H 99 12/06/22 20:00 Mechanical Vent 12/06/22 20:00 40 12/06/22 20:00 87 124/59 L Resident Activity Tracking Resident Involvement: Resident Care Provided Care Provided: Adult Hospital Medicine (ICU) (7) Diabetes mellitus, type 2 Diabetes mellitus complication status: with unspecified complications 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
--- NOTE | 2022-12-07 07:54 | XRay Report ---
XR chest 1V portable HISTORY: Respiratory failure. COMPARISON: Chest 12/06/2022. FINDINGS: Endotracheal tube terminates 3 cm from the misti. The nasogastric tube terminates below th e diaphragm. The tip is not included on this study. A right jugular central venous catheter terminate s at the distal SVC, unchanged. No pneumothorax. The heart remains enlarged. There are low lung volum es. Patchy bilateral airspace opacities persist. No fractures. IMPRESSION: 1. Satisfactory support line placement. 2. Patchy bilateral airspace opacities, unchanged. ACT 112: Negative or not required by law. Electronically signed by: Arnol Kenney M.D. 12/07/2022 7:52 AM
[2022-12-07] MEDS: MULTI VIT W/MINERALS LIQUID 15 ML UDP PO SCH (08:18)
[2022-12-07] MEDS: CLOPIDOGREL BISULFATE 75 MG TAB PO SCH (08:19)
[2022-12-07] MEDS: ATORVASTATIN 40 MG TAB PO SCH (08:20)
[2022-12-07] MEDS: ASPIRIN 81 MG CHEW PO SCH (08:20)
[2022-12-07] MEDS: methylPREDNISolone 40 MG in SYRINGE 0 ML IV SCH (08:20)
[2022-12-07] MEDS: GABAPENTIN 250 MG/5 ML 470 ML BTL PO SCH (08:22)
[2022-12-07] MEDS ORDERED: FUROSEMIDE 40 MG/4 ML VIAL IV ONE (08:22)
[2022-12-07] MEDS: AZITHROMYCIN 250 MG in DEXTROSE 5% 250 ML IV SCH (08:23)
[2022-12-07] MEDS: OLANZapine 10 MG/2.1 ML SDV IM PRN ×2 (08:41→21:40)
[2022-12-07] MEDS: ESCITALOPRAM OXALATE ORAL SOLN 20 MG/20 ML UDP PO SCH (08:54)
[2022-12-07] MEDS: fentaNYL citrate 2,500 MCG/250 ML BAG IV SCH (08:57)
[2022-12-07] MEDS: PANTOprazole 40 MG in SYRINGE 0 ML IV SCH (10:12)
--- NOTE | 2022-12-07 10:37 | Hospitalist Progress Note ---
Date of Service December 07, 2022 Assessment & Plan (1) Septic shock: Plan: 2/2 pneumonia, she is off pressors and now extubated. Hemodynamically stable. (2) Acute on chronic respiratory failure with hypoxia: Plan: extubated successfully today. Continues on nebulized bronchodilators today, Zosyn, Azithromycin and Bactrim. Continues on prednisone 20mg daily. (3) Multifocal pneumonia: Plan: Admitted to ICU Patient presenting from home with reports of worsening shortness of breath. Initially required 15L NRB and subsequent intubation in the ER due to respiratory distress. On presentation, hypotensive requiring Levophed, tachycardic, WBC 29 K, lactic acid 4.1, creatinine 2.2 CT chest showing multifocal pneumonia, bedside echo confirmed she was not volume overloaded Cont Zosyn, azithromycin, Bactrim with Vanc discontinued Blood cultures negative to date Status post bronchoscopy on 12/05-results are pending Extubated 12/07 successfully. Cont abx and steroids as noted above. (4) Elevated troponin: Plan: 2/2 demand ischemia per cardiology in setting of sepsis (5) Coronary artery disease: Plan: Initial troponin was 843 and subsequent troponins did not show any increased No reports of chest pain, EKG without acute ST changes Stat echo obtained in ED with cardiology at the bedside --no wall motion abnormalities noted, EF 60% Elevated troponins likely secondary to sepsis with strain Appreciate cardiology input and recommendation Continue aspirin 81 mg daily and Plavix (6) Chronic diastolic CHF (congestive heart failure): Plan: chronic typically on torsemide bid, she did receive one dose of furosemide 20mg IV this admission, however, resp failure attributed mostly to infection at this point. (7) Aortic stenosis: Plan: moderate, chronic, monitor volume status during resuscitation. (8) Seizure disorder: Plan: chronic, stable. Cont AED (9) Polysubstance abuse: Plan: History of, on Suboxone DVT PROPHYLAXIS SQ heparin Full Code [facility] Admission and Anticipated Discharge Date Admission Date: December 04, 2022 Subjective 42-year-old critically ill female presented with septic shock secondary to pneumonia. Extubated successfully she denies any pain or difficulty breathing oriented Physical Exam Physical Exam: CONSTITUTIONAL: WNWD, vitals as above, generally well-appearing, NAD EYES: normal conjunctivae, no scleral icterus, ENT: external ear and nose normal, oropharynx clear, NECK: trachea midline RESPIRATORY: clear to auscultation throughout. CARDIOVASCULAR: regular rate and rhythm, S1 and 2 heard without murmurs, gallops or rubs, no JVD, no peripheral edema CHEST: inspection of chest was normal GASTROINTESTINAL: soft, nontender, ND, no guarding MUSCULOSKELETAL: WNWD, moves all extremities equally SKIN: warm and dry NEUROLOGIC: no gross focal deficits. Speech intact. PSYCHIATRIC: alert and oriented. Results & Data Results & Data Vital Signs (Past 12 Hours) Vital Signs Temp Pulse Resp BP Pulse Ox O2 Del Method FiO2 12/07/22 10:00 37.3 C 92 H 29 H 98 12/07/22 10:00 123/73 12/07/22 09:00 37.4 C 133 H 19 100 12/07/22 08:00 37.4 C 99 H 26 H 97 12/07/22 08:00 133/79 12/07/22 09:00 Aerosol Mask 12/07/22 08:00 Mechanical Vent 40 12/07/22 08:00 40 12/07/22 08:00 162/74 H 12/07/22 08:00 99 H 12/07/22 07:00 37.6 C H 90 29 H 97 12/07/22 07:30 89 28 H 96 40 12/07/22 06:15 37.6 C H 93 H 28 H 98 12/07/22 06:00 37.7 C H 98 H 32 H 99 12/07/22 06:00 130/78 12/07/22 05:45 37.6 C H 100 12/07/22 05:30 37.7 C H 85 23 96 12/07/22 05:15 37.8 C H 86 25 H 95 12/07/22 05:00 37.8 C H 84 23 97 12/07/22 04:45 37.8 C H 85 24 96 12/07/22 04:30 37.8 C H 85 22 97 12/07/22 04:15 37.8 C H 85 23 97 12/07/22 04:00 37.9 C H 86 23 96 12/07/22 03:45 37.9 C H 86 23 95 12/07/22 03:30 37.8 C H 86 27 H 96 12/07/22 04:00 40 12/07/22 04:00 144/67 H 08/11/23 03:15 37.8 C H 89 25 H 94 12/07/22 03:00 37.8 C H 89 28 H 95 12/07/22 02:45 37.8 C H 88 24 95 12/07/22 02:30 37.8 C H 92 H 27 H 96 12/07/22 02:15 37.8 C H 94 H 29 H 98 12/07/22 02:00 37.8 C H 91 H 29 H 96 12/07/22 01:45 37.8 C H 95 H 22 96 12/07/22 01:30 37.8 C H 93 H 30 H 98 12/07/22 01:15 37.8 C H 94 H 26 H 97 12/07/22 01:00 37.8 C H 96 H 24 98 12/07/22 00:45 37.8 C H 98 H 30 H 98 12/07/22 00:30 37.8 C H 100 H 27 H 98 12/07/22 00:15 37.9 C H 99 H 17 98 12/07/22 02:10 94 H 28 H 96 40 12/07/22 00:00 37.9 C H 93 H 23 98 12/06/22 23:30 37.9 C H 85 26 H 99 12/06/22 23:00 37.8 C H 87 30 H 99 12/07/22 00:00 40 12/07/22 00:00 125/53 L Laboratory Results Short CBC 12/07/22 Range/Units 05:54 WBC 15.50 H (4.8-10.8) K/ul Hgb 7.9 L (12.0-16.0) g/dl Hct 25.1 L (37.0-47.0) % Plt Count 298 (130-400) K/uL BMP 12/06/22 12/07/22 05:27 05:54 Sodium 141 140 Potassium 4.3 4.4 Chloride 113 H 114 H Carbon Dioxide 19 L 20 L BUN 27 H 24 H Creatinine 1.73 H 1.64 H Glucose 118 H 103 H Calcium 8.1 L 8.4 L Diagnostic Findings Chest X-Ray 12/07/22 07:00 XR chest 1V portable HISTORY: Respiratory failure. COMPARISON: Chest 12/06/2022. FINDINGS: Endotracheal tube terminates 3 cm from the misti. The nasogastric tube terminates below the diaphragm. The tip is not included on this study. A right jugular central venous catheter terminates at the distal SVC, unchanged. No pneumothorax. The heart remains enlarged. There are low lung volumes. Patchy bilateral airspace opacities persist. No fractures. IMPRESSION: 1. Satisfactory support line placement. 2. Patchy bilateral airspace opacities, unchanged. ACT 112: Negative or not required by law. Electronically signed by: Arnol Kenney M.D. 12/07/2022 7:52 AM Medications Administered Current Inpatient Medications Albuterol (Albuterol 0.083% Nebu Soln 3 Ml Vial) 2.5 mg INH Q6R [facility]ILMA; Protocol Stop: 01/03/23 19:44 Last Admin: 12/07/22 07:30 Dose: 2.5 mg Albuterol (Albuterol 0.083% Nebu Soln 3 Ml Vial) 2.5 mg NEB Q4 PRN; Protocol PRN Reason: wheezing, coughing Stop: 01/03/23 21:26 Aspirin (Aspirin 81 Mg Chew) 81 mg PO DAILY [facility]ILMA Stop: 01/05/23 13:29 Last Admin: 12/07/22 08:20 Dose: 81 mg Atorvastatin Calcium (Atorvastatin 40 Mg Tab) 80 mg PO QAM [facility] Stop: 01/04/23 08:59 Last Admin: 12/07/22 08:20 Dose: 80 mg Clopidogrel Bisulfate (Clopidogrel Bisulfate 75 Mg Tab) 75 mg PO QAM [facility] Stop: 01/05/23 13:29 Last Admin: 12/07/22 08:19 Dose: 75 mg Dextrose (Dextrose 50% 50 Ml Syringe) 25 - 50 ml IV UD PRN; Protocol PRN Reason: Hypoglycemia Protocol Stop: 01/03/23 20:59 Escitalopram Oxalate (Escitalopram Oxalate Oral Soln 20 Mg/20 Ml Udp) 20 mg PO QAM [facility] Stop: 01/04/23 10:29 Last Admin: 12/07/22 08:54 Dose: 20 mg Gabapentin (Gabapentin 250 Mg/5 Ml 470 Ml Btl) 300 mg PO BID [facility] Stop: 01/04/23 10:59 Last Admin: 12/07/22 08:22 Dose: 300 mg Glucagon (Glucagon For Inj 1 Mg Vial) 1 mg IM UD PRN; Protocol PRN Reason: Hypoglycemia Protocol Stop: 01/03/23 20:59 Glucose (Glucose 40% Gel 15 Gm Tube) 15 - 30 gm PO UD PRN; Protocol PRN Reason: Hypoglycemia Protocol Stop: 01/03/23 20:59 Glucose (Glucose 10 Tab/Tube) 4 - 8 tab PO UD PRN; Protocol PRN Reason: Hypoglycemia Protocol Stop: 01/03/23 20:59 Heparin Sodium (Porcine) (Heparin Sod 5,000 Unit/0.5 Ml Vial) 5,000 units SQ Q8H [facility]IL[facility] Stop: 01/03/23 18:43 Last Admin: 12/07/22 10:11 Dose: 5,000 units Norepinephrine Bitartrate (Levophed/D5w) 4 mg in 250 mls @ 0 mls/hr IV .Q0M [facility]; Protocol Stop: 01/03/23 15:59 Last Titration: 12/07/22 08:39 Dose: Infused Piperacillin Sod/Tazobactam (Sod 4.5 gm/ Dextrose) 120 mls @ 30 mls/hr IV Q8H [facility]; Protocol Stop: 12/11/22 01:59 Last Admin: 12/07/22 10:11 Dose: 30 mls/hr Methylprednisolone 40 mg/ (Syringe) 0.64 mls @ 1.5 mls/min IV BID [facility] Stop: 01/03/23 21:59 Last Admin: 12/07/22 08:20 Dose: 1.5 mls/min Pantoprazole Sodium 40 mg/ (Syringe) 10 mls @ 5 mls/min IV DAILY@1100 [facility] Stop: 01/04/23 10:59 Last Admin: 12/07/22 10:12 Dose: 5 mls/min Azithromycin 250 mg/ Dextrose 252.5 mls @ 125 mls/hr IV DAILY [facility] Stop: 12/08/22 23:59 Last Infusion: 12/07/22 10:18 Dose: Infused Insulin Aspart (Insulin Aspart Per Unit Charge) 0 units SC Q4 [facility] Stop: 01/04/23 03:59 Last Admin: 12/07/22 08:36 Dose: Not Given Levetiracetam (Levetiracetam Soln 500 Mg/5 Ml Udp) 500 mg NG Q12 [facility] Stop: 01/03/23 21:14 Last Admin: 12/07/22 08:18 Dose: 500 mg Miscellaneous (Carbohydrates For Hypoglycemia ) 15 - 30 gm PO UD PRN PRN Reason: Hypoglycemia Treatment Stop: 01/03/23 20:59 Miscellaneous Information (Pharmacy Glycemic Mgmt Consult) 1 each N/A UD PRN; Protocol PRN Reason: Consult Stop: 01/03/23 20:34 Multivitamins/Minerals (Multi Vit W/Minerals Liquid 15 Ml Udp) 15 ml PO QAM [facility] Stop: 01/05/23 08:59 Last Admin: 12/07/22 08:18 Dose: 15 ml Nutritional Formula (Peptamen Intense Vhp 1.0 Eduard 1,000 Ml Bag) 1,000 ml OG .See Protocol WILMA; Protocol Stop: 01/04/23 10:14 Last Admin: 12/05/22 12:58 Dose: 1,000 ml Olanzapine (Olanzapine 10 Mg/2.1 Ml Sdv) 5 mg IM Q8H PRN PRN Reason: Agitation Stop: 01/05/23 13:16 Last Admin: 12/07/22 08:41 Dose: 5 mg Polyethylene Glycol (Polyethylene (Miralax) 17 Gm Pack) 17 gm PO DAILY PRN PRN Reason: Constipation Stop: 01/03/23 18:43 Sterile Water (Tube Feeding Water Flush) 30 ml OG Q4H [facility]ILMA Stop: 01/04/23 10:14 Last Admin: 12/07/22 10:22 Dose: Not Given Trimethoprim/Sulfamethoxazole (Sulfamethoxazole/Trimethoprim 200mg/40mg/5ml Susp) 320 mg PO Q6 [facility]IL[facility] Stop: 12/12/22 05:59 Last Admin: 12/07/22 06:17 Dose: 320 mg
--- NOTE | 2022-12-07 12:16 | Billing Data ---
Date of Service December 07, 2022 Coding Level of Care Code 67143 SUB INP/OBS CARE MIN
--- NOTE | 2022-12-07 14:53 | Pharmacy Report ---
Pharmacy Glycemic Short Note 2 - Date of Service December 07, 2022 - Glycemic Short BSG Results (Last 24 hours): 12/06/22 12/06/22 12/07/22 16:09 20:47 00:03 Glucose POC Glucose 146 H 111 H 137 H 12/07/22 12/07/22 12/07/22 04:17 05:54 08:24 Glucose 103 H POC Glucose 154 H 105 H 12/07/22 12:26 Glucose POC Glucose 139 H OUTPATIENT ANTIDIABETIC REGIMEN: * metformin 1000mg BID * A1c: 6.0 12/05/22 ASSESSMENT: 12/07 * Patient remains critically ill in ICU but is improving. Now extubated and ordered a diet. Steroids are tapering. * Unclear at this point what impact steroids may have on post-prandial BSG's and unclear what PO intake may be * Will hold off on basal insulin unless BSG's increase >180 mg/dL at HS * Will adjust Novolog to include CHO ratio, but looser parameters than a typical patient on steroids as some BSG's remain below goal for ICU status patients 12/06 * Patient remains critically ill in ICU - goal BSG 140-180 mg/dL. Remains on steroids and Peptamen trickle feeds. * BSG below goal of 140-180 mg/dL x1 this AM. Will hold Lantus for now. Will resume this evening if BSG > 180 mg/dL * Keep Novolog as correctional only. Goal range in *order* is 110-140 mg/dL (to provide some "basal" insulin as Novolog mini boluses for BSG's between 140-180 mg/dL if BSG is >140 mg/dL, but will also hold "basal" Novolog if BSG again falls below 140 mg/dL) 12/05 * Patient presenting with sepsis/pneumonia experiencing hyperglycemia on admission. * Patient received a total 24 units of insulin yesterday (10 basal, 14 bolus) * Patient is continued on IV solumedrol 40mg q12 and was initiated on trickle feeds this morning * BSGs normalized this morning with a fasting of 137mg/dL. Will order a small dose of lantus and proceed with CF only for now. IF TFs increased, Carb coverage likely will need to be added. PLAN FOR INPATIENT GLYCEMIC CONTROL: * Hold outpatient oral diabetes medications * Basal insulin * Give 5 units in PM if BSG > 180 mg/dL * Bolus insulin * NovoLog per scale q4h * Goal Range: Low 110 mg/dL - High 140 mg/dL * Correction Factor: 30 mg/dL/unit * Carb ratio: 9 g CHO/unit
[2022-12-07] MEDS ORDERED: LANTUS PER UNIT CHARGE SC ONE (21:00)
[2022-12-07] MEDS: levETIRAcetam 500 MG TAB PO SCH (21:34)
[2022-12-07] MEDS: GABAPENTIN 300 MG CAP PO SCH (21:34)
[2022-12-08] MEDS: SULFAMETHOXAZOLE/TRIMETHOPRIM 200MG/40MG/5ML SUSP PO SCH ×2 (00:05→06:06)
[2022-12-08] MEDS: ALBUTEROL 0.083% NEBU SOLN 3 ML VIAL INH SCH ×3 (01:53→11:49)
[2022-12-08] MEDS: PIPERACILLIN/TAZOBACTAM 4.5 GM in DEXTROSE 5% 100 ML IV SCH (02:32)
[2022-12-08] MEDS: TUBE FEEDING WATER FLUSH OG SCH ×2 (02:33→06:07)
[2022-12-08] MEDS: HEPARIN SOD 5,000 UNIT/0.5 ML VIAL SQ SCH ×2 (02:36→11:55)
[2022-12-08 05:32] LABS: Basophils # (auto) 0.01 K/uL (0-0.2); Basophils % (auto) 0.1 %; Eosinophils # (auto) 0.19 K/uL (0-0.50); Eosinophils % (auto) 1.7 %; Hematocrit (blood only) 26.2 % (37.0-47.0); Hemoglobin 8.3 g/dl (12.0-16.0); Immature Granulocytes % (auto) 0.9 %; Lymphocytes # (auto) 2.89 K/uL (1.2-3.4); Lymphocytes % (auto) 25.4 %; Mean Corpuscular Hemoglobin 25.9 pg (25.0-34.0); Mean Corpuscular Hgb Conc 31.7 g/dL (32.0-36.0); Mean Corpuscular Volume 81.6 fL (80.0-100.0); Mean Platelet Volume 9.8 fL (9.4-12.4); Monocytes # (auto) 0.58 K/uL (0.11-0.59); Monocytes % (auto) 5.1 %; Neutrophils # (auto) 7.61 K/uL (1.40-6.50); Neutrophils % (auto) 66.8 %; Platelet Count 266 K/uL (130-400); RDW Coefficient of Variation 19.8 % (11.5-14.5); RDW Standard Deviation 58.2 fL (36.4-46.3); Red Blood Count 3.21 M/uL (4.20-5.40); White Blood Count 11.38 K/ul (4.8-10.8)
[2022-12-08 06:06] LABS: Calcium 8.6 mg/dl (8.6-10.3); Creatinine Clr Calc Pharmacy 53.2 ml/min; Est GFR (African American) 53.8 ml/min; Est GFR (Non-African American) 46.4 ml/min; Magnesium 1.8 mg/dl (1.7-2.4); Phosphorus 3.5 mg/dl (2.5-4.9); Potassium 3.3 mmol/L (3.5-5.1)
[2022-12-08] MEDS ORDERED: POTASSIUM CHLORIDE 20 MEQ/15 ML UDC PO STA (06:27)
[2022-12-08] MEDS: MAGNESIUM SULFATE / D5W 1 GM/100 ML BAG IV SCH ×2 (06:50→08:17)
[2022-12-08] MEDS: POTASSIUM CHLORIDE / WTR 20 MEQ/100 ML PLCT IV SCH ×2 (06:50→08:17)
--- NOTE | 2022-12-08 07:19 | Hospitalist Progress Note ---
Date of Service December 08, 2022 Assessment & Plan (1) Septic shock: Plan: 2/2 pneumonia, she is off pressors and now extubated. Hemodynamically stable. (2) Acute on chronic respiratory failure with hypoxia: Plan: extubated successfully on 12/07. Continues on nebulized bronchodilators today, Zosyn, Azithromycin and Bactrim. Continues on prednisone 20mg daily. (3) Multifocal pneumonia: Plan: Admitted to ICU Patient presenting from home with reports of worsening shortness of breath. Initially required 15L NRB and subsequent intubation in the ER due to respiratory distress. On presentation, hypotensive requiring Levophed, tachycardic, WBC 29 K, lactic acid 4.1, creatinine 2.2 CT chest showing multifocal pneumonia, bedside echo confirmed she was not volume overloaded Cont Zosyn, azithromycin, Bactrim Day 4 with Vanc discontinued Blood cultures negative to date Status post bronchoscopy on 12/05 PJP still pending, Legionella Ag was negative. Extubated 12/07 successfully. Cont abx and steroids as noted above. (4) Elevated troponin: Plan: 2/2 demand ischemia per cardiology in setting of sepsis (5) Coronary artery disease: Plan: Initial troponin was 843 and subsequent troponins did not show any increased No reports of chest pain, EKG without acute ST changes Stat echo obtained in ED with cardiology at the bedside --no wall motion abnormalities noted, EF 60% Elevated troponin likely secondary to sepsis with strain Continue aspirin 81 mg daily and Plavix Cardiac cath per cardiology when she is improved. Creatinine is still elevated-will discuss this with the team after the weekend. (6) Chronic diastolic CHF (congestive heart failure): Plan: chronic typically on torsemide bid, she did receive one dose of furosemide 20mg IV this admission, however, resp failure attributed mostly to infection at this point. (7) Aortic stenosis: Plan: moderate, chronic, monitor volume status during resuscitation. (8) Seizure disorder: Plan: chronic, stable. Cont AED (9) Polysubstance abuse: Plan: History of, on Suboxone DVT PROPHYLAXIS SQ heparin Full Code I spent a total [id number] coordinating, documenting, and providing care for this patient excluding time spent in the performance of separately billed services [facility] Smith [facility] and Anticipated Discharge Date Admission Date: December 04, 2022 Subjective 42-year-old critically ill female presented with septic shock secondary to pneumonia. she is breathing better today on 3LPM supplemental oxygen reports some cough that is productive feeling much better afebrile tolerating PO Review of Systems Review of Systems: All systems were reviewed and negative except as indicated on subjective above. Physical Exam Physical Exam: CONSTITUTIONAL: WNWD, vitals as above, generally well-appearing, NAD EYES: normal conjunctivae, no scleral icterus, ENT: external ear and nose normal, oropharynx clear, NECK: trachea midline RESPIRATORY: rales on lower right lung, scant rhonchi, good diaphragmatic excursion, no increased respiratory effort. CARDIOVASCULAR: regular rate and rhythm, 3/6 MAXIME, no gallops or rubs, no JVD, no peripheral edema CHEST: inspection of chest was normal GASTROINTESTINAL: soft, nontender, ND, no guarding MUSCULOSKELETAL: WNWD, moves all extremities equally SKIN: warm and dry NEUROLOGIC: no gross focal deficits. Speech intact. PSYCHIATRIC: alert and oriented. Results & Data Results & Data Vital Signs (Past 12 Hours) Vital Signs Pulse Pulse Resp BP Pulse Ox O2 Del Method O2 Flow Rate 12/08/22 05:00 95 H 33 H 91 12/08/22 05:00 129/79 12/08/22 04:00 85 28 H 94 12/08/22 04:00 152/82 H 12/08/22 03:00 108 H 34 H 93 12/08/22 03:00 138/79 12/08/22 02:00 85 29 H 100 12/08/22 02:00 138/83 12/08/22 01:00 87 35 H 88 L 12/08/22 01:00 133/79 12/08/22 00:00 82 31 H 97 12/08/22 00:00 122/75 12/07/22 23:00 94 H 29 H 98 12/07/22 23:00 130/69 12/07/22 22:00 94 H 31 H 94 12/07/22 22:00 130/72 12/08/22 01:54 89 17 94 Nasal Cannula 3 12/07/22 21:30 96 H 33 H 93 12/07/22 21:00 93 H 35 H 95 12/07/22 21:00 131/81 12/07/22 20:30 101 H 24 93 12/07/22 20:00 94 H 31 H 93 12/07/22 20:00 134/77 12/07/22 19:30 83 35 H 94 12/07/22 20:00 Nasal Cannula 3 12/07/22 19:50 87 16 94 Nasal Cannula 3 Laboratory Results Short CBC 12/08/22 Range/Units 05:22 WBC 11.38 H (4.8-10.8) K/ul Hgb 8.3 L (12.0-16.0) g/dl Hct 26.2 L (37.0-47.0) % Plt Count 266 (130-400) K/uL BMP 12/08/22 05:22 Sodium 142 Potassium 3.3 L D Chloride 112 H Carbon Dioxide 24 BUN 18 Creatinine 1.38 H Glucose 79 Calcium 8.6 Medications Administered Current Inpatient Medications Albuterol (Albuterol 0.083% Nebu Soln 3 Ml Vial) 2.5 mg INH Q6R [facility]; Protocol Stop: 01/03/23 19:44 Last Admin: 12/08/22 01:53 Dose: 2.5 mg Albuterol (Albuterol 0.083% Nebu Soln 3 Ml Vial) 2.5 mg NEB Q4 PRN; Protocol PRN Reason: wheezing, coughing Stop: 01/03/23 21:26 Aspirin (Aspirin 81 Mg Chew) 81 mg PO DAILY [facility] Stop: 01/05/23 13:29 Last Admin: 12/07/22 08:20 Dose: 81 mg Atorvastatin Calcium (Atorvastatin 40 Mg Tab) [facility] [place] Stop: 01/04/23 08:59 Last Admin: 12/07/22 08:20 Dose: 80 mg Clopidogrel Bisulfate (Clopidogrel Bisulfate 75 Mg Tab) [facility] [place] Stop: 01/05/23 13:29 Last Admin: 12/07/22 08:19 Dose: 75 mg Dextrose (Dextrose 50% 50 Ml Syringe) 25 - 50 ml IV UD PRN; Protocol PRN Reason: Hypoglycemia Protocol Stop: 01/03/23 20:59 Escitalopram Oxalate (Escitalopram Oxalate Oral Soln 20 Mg/20 Ml Udp) 20 mg PO QAM [facility] Stop: 01/04/23 10:29 Last Admin: 12/07/22 08:54 Dose: 20 mg Gabapentin (Gabapentin 300 Mg Cap) 300 mg PO BID [facility] Stop: 01/06/23 20:59 Last Admin: 12/07/22 21:34 Dose: 300 mg Glucagon (Glucagon For Inj 1 Mg Vial) 1 mg IM UD PRN; Protocol PRN Reason: Hypoglycemia Protocol Stop: 01/03/23 20:59 Glucose (Glucose 40% Gel 15 Gm Tube) 15 - 30 gm PO UD PRN; Protocol PRN Reason: Hypoglycemia Protocol Stop: 01/03/23 20:59 Glucose (Glucose 10 Tab/Tube) 4 - 8 tab PO UD PRN; Protocol PRN Reason: Hypoglycemia Protocol Stop: 01/03/23 20:59 Heparin Sodium (Porcine) (Heparin Sod 5,000 Unit/0.5 Ml Vial) 5,000 units SQ Q8H [facility] Stop: 01/03/23 18:43 Last Admin: 12/08/22 02:36 Dose: 5,000 units Norepinephrine Bitartrate (Levophed/D5w) 4 mg in 250 mls @ 0 mls/hr IV .Q0M [facility]; Protocol Stop: 01/03/23 15:59 Last Titration: 12/07/22 08:39 Dose: Infused Piperacillin Sod/Tazobactam (Sod 4.5 gm/ Dextrose) 120 mls @ 30 mls/hr IV Q8H [facility]; Protocol Stop: 12/11/22 01:59 Last Infusion: 12/08/22 06:32 Dose: Infused Azithromycin 250 mg/ Dextrose 252.5 mls @ 125 mls/hr IV DAILY [facility] Stop: 12/08/22 23:59 Last Infusion: 12/07/22 10:18 Dose: Infused Potassium Chloride (K Jonatan / Wtr) 20 meq in 100 mls @ 50 mls/hr IV Q2H [facility] Stop: 12/08/22 10:44 Last Admin: 12/08/22 06:50 Dose: 50 mls/hr Magnesium Sulfate/Dextrose (Magnesium Sulfate / D5w) 1 gm in 100 mls @ 50 mls/hr IV Q2H [facility] Stop: 12/08/22 10:29 Last Admin: 12/08/22 06:50 Dose: 50 mls/hr Insulin Aspart (Insulin Aspart Per Unit Charge) 0 units SC ACHS [facility] Stop: 01/06/23 16:29 Last Admin: 12/07/22 20:58 Dose: Not Given Levetiracetam (Levetiracetam 500 Mg Tab) 500 mg PO BID [facility] Stop: 01/06/23 20:59 Last Admin: 12/07/22 21:34 Dose: 500 mg Miscellaneous (Carbohydrates For Hypoglycemia ) 15 - 30 gm PO UD PRN PRN Reason: Hypoglycemia Treatment Stop: 01/03/23 20:59 Miscellaneous Information (Pharmacy Glycemic Mgmt Consult) 1 each N/A UD PRN; Protocol PRN Reason: Consult Stop: 01/03/23 20:34 Multivitamins/Minerals (Multi Vit W/Minerals Liquid 15 Ml Udp) 15 ml PO QAM [facility] Stop: 01/05/23 08:59 Last Admin: 12/07/22 08:18 Dose: 15 ml Olanzapine (Olanzapine 10 Mg/2.1 Ml Sdv) 5 mg IM Q8H PRN PRN Reason: Agitation Stop: 01/05/23 13:16 Last Admin: 12/07/22 21:40 Dose: 5 mg Pantoprazole Sodium (Pantoprazole 40 Mg Tab) 40 mg PO QAM [facility] Stop: 01/07/23 08:59 Polyethylene Glycol (Polyethylene (Miralax) 17 Gm Pack) 17 gm PO DAILY PRN PRN Reason: Constipation Stop: 01/03/23 18:43 Prednisone (Prednisone 20 Mg Tab) 20 mg PO DAILY [facility] Stop: 01/07/23 08:59 Sterile Water (Tube Feeding Water Flush) 30 ml OG Q4H [facility] Stop: 01/04/23 10:14 Last Admin: 12/08/22 06:07 Dose: Not Given Trimethoprim/Sulfamethoxazole (Sulfamethoxazole/Trimethoprim 200mg/40mg/5ml Susp) 320 mg PO Q6 [facility] Stop: 12/12/22 05:59 Last Admin: 12/08/22 06:06 Dose: 320 mg
--- NOTE | 2022-12-08 07:40 | Critical Care Progress Note ---
Date of Service December 08, 2022 Assessment & Plan (1) Acute on chronic respiratory failure with hypoxia: Plan: Reason critically ill: Patient is a 42 yo female with a PMH significant for HTN, HLD, COPD requiring 3L NC at night, , diastolic HF, seizure disorder, and hx of polysubstance abuse (methamphetamine, opioids, cannabis) who presented with SOB and cough. CT scan showed multifocal airspace opacity and the patient was intubated initiated on vasopressors and transferred to the ICU. 24-hour events: The patient Plast a spontaneous breathing trial. She was extubated to nasal cannula. She has done well overnight. Serum creatinine continues to improve. Hemoglobin stable. Recommendations: Neuro: History of seizure disorder. Continue buspirone cyclobenzaprine and trazodone as well as Keppra gabapentin and Lexapro. Holding on Suboxone for now. PT OT and out of bed to chair as tolerated Cardiac: Hypotension/septic shock: Now resolved. Off vasopressors. Cardiology has recommended cardiac catheterization given elevated troponin during this ho spitalization when stable. Will defer to hospitalist as to when she is medically appropriate, likely next week if her creatinine continues to improve. Echocardiogram did show aortic stenosis. Unclear if this could have been contributing to her diffuse pulmonary infiltrates. Respiratory: Acute on chronic respiratory failure with diffuse pulmonary infiltrates (groundglass and extensive septal thickening). Given the patient's rapid improvement, this appears more consistent with a pulmonary edema pattern. Cannot rule out infectious etiologies and multiple serologies and cultures are currently pending. Continue supplemental oxygen titrated to keep saturations at or above 90%. Out of bed to chair. Incentive spirometry. Pigmented histiocytes are identified on cytology which may be consistent with a history of tobacco exposure. Unclear if the patient was vaping or using other illicit inhalational substances which may have resulted in acute lung injury. Patient was counseled on importance of avoiding any inhalational exposures. GI: Advancing diet as tolerated. Can discontinue PPI Renal/electrolytes: Acute renal failure: Serum creatinine improving. Electrolytes stable. Acid-base status improved. : Discontinue [place] Endo: No acute issues. Glycemic control per protocol Heme: Mild anemia. Leukocytosis improving. No evidence of blood loss. No indication for transfusion currently. Low iron. Haptoglobin was high arguing against hemolysis. Outpatient work-up for iron deficiency anemia recommended ID: Cannot rule out infectious etiology. HIV negative. Multiple serologies pending. Patient is currently day #4 Zosyn, Bactrim, and azithromycin. Recommend following up on cultures and anticipate a 7-day course of azithromycin and some gram-negative coverage (will discontinue Zosyn as no Pseudomonas or anaerobic organisms identified and transition to oral Ceftin). We will need to follow-up on Legionella studies as well as PJP PCR. Would continue steroids for now until the PCR for pneumocystis is resulted. If it is negative, steroids can be discontinued. Lines/IV access: Discontinue central line. Arterial line out DVT ppx: - heparin, SCDs Patient appears to have achieved maximal benefit from ICU stay and no longer has critical care issues. She will be transferred to the floor under the care of the hospitalist. Critical care services will sign off. Feel free to contact us with questions or concerns (2) Multifocal pneumonia: (3) Chronic diastolic CHF (congestive heart failure): (4) HLD (hyperlipidemia): (5) HTN (hypertension): (6) Aortic stenosis: (7) Diabetes mellitus, type 2: (8) Coronary artery disease: (9) Seizure disorder: Admission and Anticipated Discharge Date Admission Date: December 04, 2022 Subjective Patient seen and examined. EMR reviewed. Discussed with bedside critical care nurse and with pharmacy on multidisciplinary rounds. The patient was extubated yesterday. She is doing well. She denies any chest pain shortness of breath or problems breathing. No significant cough or sputum production. She has not yet been out of bed. She has not noted any significant lower extremity edema. No skin rashes. No nausea vomiting or diarrhea. She has a diet in place. Review of Systems Review of Systems: All systems reviewed & are unremarkable except as noted in Subjective Physical Exam Constitutional: WD/WN, vitals as above Neck: trachea midline, no thyromegaly Respiratory: normal respiratory effort, lungs clear to auscultation Cardiovascular: RRR, no murmur, no edema Gastrointestinal (Abdomen): normal bowel sounds, soft, nontender, no hepatosplenomegaly Musculoskeletal: Extremities: extremities normal to inspection Skin: no rashes, warm and dry Neurologic: Nonfocal exam Lymphatic: no cervical lymphadenopathy Results & Data Results & Data Vital Signs (Past 12 Hours) Vital Signs Pulse Pulse Resp BP Pulse Ox O2 Del Method O2 Flow Rate 12/08/22 05:00 95 H 33 H 91 12/08/22 05:00 129/79 12/08/22 04:00 85 28 H 94 12/08/22 04:00 152/82 H 12/08/22 03:00 108 H 34 H 93 12/08/22 03:00 138/79 12/08/22 02:00 85 29 H 100 12/08/22 02:00 138/83 12/08/22 01:00 87 35 H 88 L 12/08/22 01:00 133/79 12/08/22 00:00 82 31 H 97 12/08/22 00:00 122/75 12/07/22 23:00 94 H 29 H 98 12/07/22 23:00 130/69 12/07/22 22:00 94 H 31 H 94 12/07/22 22:00 130/72 12/08/22 01:54 89 17 94 Nasal Cannula 3 12/07/22 21:30 96 H 33 H 93 12/07/22 21:00 93 H 35 H 95 12/07/22 21:00 131/81 12/07/22 20:30 101 H 24 93 12/07/22 20:00 94 H 31 H 93 12/07/22 20:00 134/77 12/07/22 19:30 83 35 H 94 12/07/22 20:00 Nasal Cannula 3 12/07/22 19:50 87 16 94 Nasal Cannula 3 Critical Care Results & Data Vital Signs (Past 12 Hours) Vital Signs Pulse Pulse Resp BP Pulse Ox O2 Del Method O2 Flow Rate 12/08/22 05:00 95 H 33 H 91 12/08/22 05:00 129/79 12/08/22 04:00 85 28 H 94 12/08/22 04:00 152/82 H 12/08/22 03:00 108 H 34 H 93 12/08/22 03:00 138/79 12/08/22 02:00 85 29 H 100 12/08/22 02:00 138/83 12/08/22 01:00 87 35 H 88 L 12/08/22 01:00 133/79 12/08/22 00:00 82 31 H 97 12/08/22 00:00 122/75 12/07/22 23:00 94 H 29 H 98 12/07/22 23:00 130/69 12/07/22 22:00 94 H 31 H 94 08/11/23 22:00 130/72 12/08/22 01:54 89 17 94 Nasal Cannula 3 12/07/22 21:30 96 H 33 H 93 12/07/22 21:00 93 H 35 H 95 12/07/22 21:00 131/81 12/07/22 20:30 101 H 24 93 12/07/22 20:00 94 H 31 H 93 12/07/22 20:00 134/77 12/07/22 20:00 Nasal Cannula 3 12/07/22 19:50 87 16 94 Nasal Cannula 3 Lab & Micro Results (Past 24 Hours) RBC 3.21 M/uL (4.20-5.40) L 12/08/22 WBC 11.38 K/ul (4.8-10.8) H 12/08/22 Hgb 8.3 g/dl (12.0-16.0) L 12/08/22 Hct 26.2 % (37.0-47.0) L 12/08/22 MCV 81.6 fL (80.0-100.0) 12/08/22 MCH 25.9 pg (25.0-34.0) 12/08/22 MCHC 31.7 g/dL (32.0-36.0) L 12/08/22 RDW Standard Deviation 58.2 fL (36.4-46.3) H 12/08/22 RDW Coefficient of Variation 19.8 % (11.5-14.5) H 12/08/22 Plt Count 266 K/uL (130-400) 12/08/22 MPV 9.8 fL (9.4-12.4) 12/08/22 Neutrophils (%) (Auto) 66.8 % 12/08/22 Lymphocytes (%) (Auto) 25.4 % 12/08/22 Monocytes # (Auto) 0.58 K/uL (0.11-0.59) 12/08/22 Eosinophils # (Auto) 0.19 K/uL (0-0.50) 12/08/22 Immature Granulocyte % (Auto) 0.9 % 12/08/22 Neutrophils # (Auto) 7.61 K/uL (1.40-6.50) H 12/08/22 Lymphocytes # (Auto) 2.89 K/uL (1.2-3.4) 12/08/22 Monocytes # (Auto) 0.58 K/uL (0.11-0.59) 12/08/22 Eosinophils # (Auto) 0.19 K/uL (0-0.50) 12/08/22 Basophils # (Auto) 0.01 K/uL (0-0.2) 12/08/22 Immature Granulocyte # (Auto) 0.10 K/uL (0.01-0.20) 3 Na 142 mmol/L (136-145) 12/08/22 K 3.3 mmol/L (3.5-5.1) L 12/08/22 Cl 112 mmol/L (98-107) H 12/08/22 CO2 24 mmol/L (21-32) 12/08/22 Anion Gap 6 (3-11) 12/08/22 BUN 18 mg/dl (6-23) 12/08/22 Creatinine 1.38 mg/dl (0.6-1.2) H 12/08/22 Estimated GFR ( Amer) 53.8 ml/min 12/08/22 Estimated GFR (Non-Af Amer) 46.4 ml/min 12/08/22 BUN/Creatinine Ratio 13.0 (10-20) 12/08/22 Glu 79 mg/dl (70-99(Fasting)) 12/08/22 Ca 8.6 mg/dl (8.6-10.3) 12/08/22 Phosphorus Level 3.5 mg/dl (2.5-4.9) 12/08/22 Mg 1.8 mg/dl (1.7-2.4) 12/08/22 05:22 Calcium Level 8.6 mg/dl (8.6-10.3) 12/08/22 05:22 Microbiology 12/05/22 10:30 Gram Stain - Final Ba Lavage,Left Upper Lobe Bronchial Culture - Final Scant normal fuad. Diagnostic Findings (Past 24 Hours) Chest X-Ray 12/07/22 07:00 XR chest 1V portable HISTORY: Respiratory failure. COMPARISON: Chest 12/06/2022. FINDINGS: Endotracheal tube terminates 3 cm from the misti. The nasogastric tube terminates below the diaphragm. The tip is not included on this study. A right jugular central venous catheter terminates at the distal SVC, unchanged. No pneumothorax. The heart remains enlarged. There are low lung volumes. Patchy bilateral airspace opacities persist. No fractures. IMPRESSION: 1. Satisfactory support line placement. 2. Patchy bilateral airspace opacities, unchanged. ACT 112: Negative or not required by law. Electronically signed by: Arnol Kenney M.D. 12/07/2022 7:52 AM I & O Totals 24 Hours 12/07/22 12/08/22 12/09/22 06:59 06:59 06:59 Intake Total 1273.429 / 2228.124 8728.355 / 1411.355 Output Total 3563 / 3563 5346 / 5346 Balance -2289.571 / -2289.571 -3934.645 / -3934.645 Cumulative 12/04/22 15:00 thru 12/08/22 06:32 Intake Total 8078.302 Output Total 79300 Balance -5866.698 RT Ventilator Mngmt (Last Documented) Ventilator Ordered Settings Ventilator Support Mode CPAP 12/07/22 08:00 Respiratory Rate 33 12/08/22 05:00 Ventilator Tidal Volume 315 12/06/22 06:50 Setting Minute Ventilation 10.3 12/07/22 07:30 Ventilator Positive Pressure 4 12/07/22 07:30 Support Setting Positive End Expiratory 6 12/07/22 08:00 Pressure Fraction of Inspired Oxygen 40 12/07/22 13:45 Machine Comment changes made per by JOSETTE 12/04/22 22:57 Ventilator - PT Measurements Respiratory Rate 33 Exhaled Tidal Volume 359 Minute Ventilation 10.3 Peak Inspiratory Airway 12 Pressure Plateau Pressure 14 Respiratory Cycle Inspiratory: 1:2.6 Expiratory Ratio Inspiratory Phase Time 0.7 End-Tidal CO2 31 Static Lung Compliance 38.88 Dynamic Lung Compliance 59.83 Normal Static Lung Compliance 49.00 Patient Measurements Comment pt extubated per provider order and placed on 10L/40%. Sat 96% post extubation. pt able to vocalize name post extubation, no stridor present. Coding Level of Care Code 52414 SUB INP/OBS CARE 3/50MIN Diagnoses Acute on chronic respiratory failure with hypoxia J96.21 Multifocal pneumonia J18.9 Chronic diastolic CHF (congestive heart failure) I50.32 HLD (hyperlipidemia) E78.5 HTN (hypertension) I10 Aortic stenosis I35.0 Diabetes mellitus, type 2 E11.8 Diabetes mellitus complication status: with unspecified complications Diabetes mellitus watermelon inspector insulin use: without nursing home use Coronary artery disease I25.10 Seizure disorder G40.909 (7) Diabetes mellitus, type 2 Diabetes mellitus complication status: with unspecified complications Diabetes mellitus watermelon inspector insulin use: without watermelon inspector use Qualified Code(s): E11.8 - Type 2 diabetes mellitus with unspecified complications
[2022-12-08] MEDS: INSULIN ASPART PER UNIT CHARGE SC SCH ×4 (08:16→19:55)
[2022-12-08] MEDS: GABAPENTIN 300 MG CAP PO SCH ×2 (08:20→20:09)
[2022-12-08] MEDS: ASPIRIN 81 MG CHEW PO SCH (08:20)
[2022-12-08] MEDS: AZITHROMYCIN 250 MG TAB PO SCH (08:20)
[2022-12-08] MEDS: predniSONE 20 MG TAB PO SCH (08:20)
[2022-12-08] MEDS: levETIRAcetam 500 MG TAB PO SCH ×2 (08:21→20:10)
[2022-12-08] MEDS: CLOPIDOGREL BISULFATE 75 MG TAB PO SCH (08:21)
[2022-12-08] MEDS: ATORVASTATIN 40 MG TAB PO SCH (08:21)
[2022-12-08] MEDS: cefUROXime axetil 500 MG TAB PO SCH ×2 (08:29→20:08)
[2022-12-08] MEDS ORDERED: Nursing to Pharmacy Communication SCH (08:30)
[2022-12-08] MEDS ORDERED: PANTOprazole 40 MG TAB PO SCH (09:00)
[2022-12-08] MEDS: ESCITALOPRAM OXALATE 20 MG TAB PO SCH (09:40)
[2022-12-08] MEDS ORDERED: ALBUTEROL 0.083% NEBU SOLN 3 ML VIAL INH PRN (11:57)
[2022-12-08] MEDS: SULFAMETHOXAZOLE/TRIMETHOPRIM DS 800/160MG TAB PO SCH ×3 (12:20→20:10)
[2022-12-08] MEDS: ENOXAPARIN INJ 40 MG/0.4 ML SYR SQ SCH (13:58)
[2022-12-08 16:42] LABS: Aspergillus Ag Index 0.04 (<0.50); Aspergillus Antigen, Serum Not Detected (Not Detected)
[2022-12-08 18:12] LABS: Cryptococcal Antigen Not Detected (Not Detected); Source Serum
[2022-12-08] MEDS ORDERED: ACETAMINOPHEN 500 MG TAB PO PRN (21:39)
[2022-12-08] MEDS: BUPRENORPHINE/NALOXONE 8/2 MG TAB SL SCH (21:52)
[2022-12-09] MEDS: SULFAMETHOXAZOLE/TRIMETHOPRIM DS 800/160MG TAB PO SCH ×3 (05:32→16:58)
[2022-12-09 06:25] LABS: Basophils # (auto) 0.02 K/uL (0-0.2); Basophils % (auto) 0.1 %; Eosinophils # (auto) 0.44 K/uL (0-0.50); Eosinophils % (auto) 3.1 %; Hematocrit (blood only) 27.8 % (37.0-47.0); Hemoglobin 8.9 g/dl (12.0-16.0); Immature Granulocytes % (auto) 2.8 %; Lymphocytes # (auto) 4.25 K/uL (1.2-3.4); Mean Corpuscular Hemoglobin 26.2 pg (25.0-34.0); Mean Corpuscular Volume 81.8 fL (80.0-100.0); Mean Platelet Volume 10.1 fL (9.4-12.4); Monocytes # (auto) 0.66 K/uL (0.11-0.59); Monocytes % (auto) 4.7 %; Neutrophils # (auto) 8.39 K/uL (1.40-6.50); Neutrophils % (auto) 59.3 %; Platelet Count 321 K/uL (130-400); RDW Coefficient of Variation 19.5 % (11.5-14.5); RDW Standard Deviation 57.7 fL (36.4-46.3); White Blood Count 14.16 K/ul (4.8-10.8)
[2022-12-09 06:44] LABS: BUN Creatinine Ratio 11.6 (10-20); Calcium 9.1 mg/dl (8.6-10.3); Creatinine Clr Calc Pharmacy 51.4 ml/min; Est GFR (African American) 53.8 ml/min; Est GFR (Non-African American) 46.4 ml/min; Magnesium 1.9 mg/dl (1.7-2.4); Phosphorus 3.3 mg/dl (2.5-4.9); Potassium 4.2 mmol/L (3.5-5.1)
[2022-12-09] MEDS: INSULIN ASPART PER UNIT CHARGE SC SCH ×4 (07:56→20:43)
[2022-12-09] MEDS: ASPIRIN 81 MG CHEW PO SCH (08:36)
[2022-12-09] MEDS: ATORVASTATIN 40 MG TAB PO SCH (08:36)
[2022-12-09] MEDS: CLOPIDOGREL BISULFATE 75 MG TAB PO SCH (08:37)
[2022-12-09] MEDS: AZITHROMYCIN 250 MG TAB PO SCH (08:37)
[2022-12-09] MEDS: cefUROXime axetil 500 MG TAB PO SCH ×2 (08:37→20:44)
[2022-12-09] MEDS: FLUTICASONE/VILANTEROL 200/25MCG 14 PUFFS/INHALER INH SCH (08:38)
[2022-12-09] MEDS: GABAPENTIN 300 MG CAP PO SCH ×2 (08:38→20:45)
[2022-12-09] MEDS: ESCITALOPRAM OXALATE 20 MG TAB PO SCH (08:38)
[2022-12-09] MEDS: levETIRAcetam 500 MG TAB PO SCH ×2 (08:38→20:45)
[2022-12-09] MEDS: predniSONE 20 MG TAB PO SCH (08:39)
[2022-12-09] MEDS: BUPRENORPHINE/NALOXONE 8/2 MG TAB SL SCH (08:41)
[2022-12-09] MEDS ORDERED: BUPRENORPHINE/NALOXONE 8/2 MG TAB SL SCH (09:00)
--- NOTE | 2022-12-09 10:14 | Hospitalist Progress Note ---
Date of Service December 09, 2022 Assessment & Plan (1) Septic shock: Plan: 2/2 pneumonia, she is off pressors and now extubated. Hemodynamically stable. (2) Acute on chronic respiratory failure with hypoxia: Plan: extubated successfully on 12/07. Continues on nebulized bronchodilators as needed today, Zosyn, Azithromycin and Bactrim. Continues on prednisone 20mg daily. (3) Multifocal pneumonia: Plan: Admitted to ICU Patient presenting from home with reports of worsening shortness of breath. Initially required 15L NRB and subsequent intubation in the ER due to respiratory distress. On presentation, hypotensive requiring Levophed, tachycardic, WBC 29 K, lactic acid 4.1, creatinine 2.2 CT chest showing multifocal pneumonia, bedside echo confirmed she was not volume overloaded Cont Zosyn, azithromycin, Bactrim Day 5 with Vanc discontinued Blood cultures negative to date Status post bronchoscopy on 12/05 PJP still pending, Legionella Ag was negative. Extubated 12/07 successfully. Cont abx and steroids as noted above. (4) Elevated troponin: Plan: 2/2 demand ischemia per cardiology in setting of sepsis (5) Coronary artery disease: Plan: Initial troponin was 843 and subsequent troponins did not show any increased No reports of chest pain, EKG without acute ST changes Stat echo obtained in ED with cardiology at the bedside --no wall motion abnormalities noted, EF 60% Elevated troponin likely secondary to sepsis with strain Continue aspirin 81 mg daily and Plavix Cardiac cath per cardiology when she is improved. Creatinine is still elevated-will discuss this with the team for after the weekend. (6) Chronic diastolic CHF (congestive heart failure): Plan: chronic typically on torsemide bid, she did receive one dose of furosemide 20mg IV this admission, however, resp failure attributed mostly to infection at this point. will hold off on restarting home torsemide given recentl illness and renal failure just now resolved and because of possible plans for heart catheterization to avoid PAMELA. (7) Aortic stenosis: Plan: moderate, chronic, monitor volume status during resuscitation. Currently appears euvolemic. Cont current therapy. (8) Seizure disorder: Plan: chronic, stable. Cont AED (9) Polysubstance abuse: Plan: History of, on Suboxone which has been restarted. She also requested Trazodone 75mg qHS which was restarted after she reported insomnia last evening. DVT PROPHYLAXIS SQ heparin Full Code I spent a total [id number] coordinating, documenting, and providing care for this patient excluding time spent in the performance of separately billed services Zina Smith DO [facility] Hospitalist Admission and Anticipated Discharge Date Admission Date: December 04, 2022 Subjective 42-year-old critically ill female presented with septic shock secondary to pneumonia. reports her cough present yesterday has resolved she is now breathing well on room air. feeling much better afebrile tolerating PO I reached out to cardiology regarding the cardiac catheterization and they will see her today creat is back to baseline (1.3) per outpatient records review. Review of Systems Review of Systems: All systems were reviewed and negative except as indicated on subjective above. Physical Exam Physical Exam: CONSTITUTIONAL: WNWD, vitals as above, generally well-appearing, NAD EYES: normal conjunctivae, no scleral icterus, ENT: external ear and nose normal, oropharynx clear, NECK: trachea midline RESPIRATORY: CTAB, good diaphragmatic excursion, no increased respiratory effort. CARDIOVASCULAR: regular rate and rhythm, 3/6 MAXIME, no gallops or rubs, no JVD, no peripheral edema CHEST: inspection of chest was normal GASTROINTESTINAL: soft, nontender, ND, no guarding MUSCULOSKELETAL: WNWD, moves all extremities equally SKIN: warm and dry NEUROLOGIC: no gross focal deficits. Speech intact. PSYCHIATRIC: alert and oriented. Results & Data Results & Data Vital Signs (Past 12 Hours) Vital Signs Temp Pulse Pulse Resp BP Pulse Ox O2 Del Method 12/09/22 07:30 Room Air 12/09/22 08:00 113 H 12/09/22 07:09 36.7 C 108 H 20 120/80 96 Room Air 12/09/22 03:54 36.9 C 82 14 125/73 97 Nasal Cannula 12/08/22 23:26 100 H 12/08/22 23:05 36.4 C L 98 H 16 134/76 100 Nasal Cannula 12/08/22 22:34 Nasal Cannula O2 Flow Rate 12/09/22 07:30 12/09/22 08:00 12/09/22 07:09 12/09/22 03:54 1 12/08/22 23:26 12/08/22 23:05 1 12/08/22 22:34 1 Laboratory Results Short CBC 12/09/22 Range/Units 06:07 WBC 14.16 H (4.8-10.8) K/ul Hgb 8.9 L (12.0-16.0) g/dl Hct 27.8 L (37.0-47.0) % Plt Count 321 (130-400) K/uL [facility] 12/09/22 06:07 Sodium 135 L Potassium 4.2 D Chloride 109 H Carbon Dioxide 20 L BUN 16 Creatinine 1.38 H Glucose 72 Calcium 9.1 Medications Administered Current Inpatient Medications Acetaminophen (Acetaminophen 500 Mg Tab) 500 mg PO Q6H PRN PRN Reason: Pain/Fever Stop: 01/07/23 21:38 Last Admin: 12/08/22 21:52 Dose: 500 mg Albuterol (Albuterol 0.083% Nebu Soln 3 Ml Vial) 2.5 mg NEB Q4 PRN; Protocol PRN Reason: wheezing, coughing Stop: 01/03/23 21:26 Albuterol (Albuterol 0.083% Nebu Soln 3 Ml Vial) 2.5 mg INH Q6R PRN; Protocol PRN Reason: SOB/wheezing Stop: 01/03/23 19:44 Aspirin (Aspirin 81 Mg Chew) 81 mg PO DAILY [facility] Stop: 01/05/23 13:29 Last Admin: 12/09/22 08:36 Dose: 81 mg Atorvastatin Calcium ([facility]vastatin 40 Mg Tab) [facility] Stop: 01/04/23 08:59 Last Admin: 12/09/22 08:36 Dose: 80 mg Azithromycin (Azithromycin 250 Mg Tab) 250 mg PO QAM [facility] Stop: 12/12/22 08:59 Last Admin: 12/09/22 08:37 Dose: 250 mg Buprenorphine/Naloxone (Buprenorphine/Naloxone 8/2 Mg Tab) 1 tab SL DAILY [facility] Stop: 01/07/23 21:39 Last Admin: 12/09/22 08:41 Dose: 1 tab Cefuroxime Axetil (Cefuroxime Axetil 500 Mg Tab) 500 mg PO BID [facility] Stop: 12/15/22 08:59 Last Admin: 12/09/22 08:37 Dose: 500 mg Clopidogrel Bisulfate (Clopidogrel Bisulfate 75 Mg Tab) 75 mg PO QAM [facility] Stop: 01/05/23 13:29 Last Admin: 12/09/22 08:37 Dose: 75 mg Dextrose (Dextrose 50% 50 Ml Syringe) 25 - 50 ml IV UD PRN; Protocol PRN Reason: Hypoglycemia Protocol Stop: 01/03/23 20:59 Enoxaparin Sodium (Enoxaparin Inj 40 Mg/0.4 Ml Syr) 40 mg SQ Q24H [facility] Stop: 01/07/23 11:59 Last Admin: 12/08/22 13:58 Dose: Not Given Escitalopram Oxalate (Escitalopram Oxalate 20 Mg Tab) 20 mg PO QAM [facility] Stop: 01/07/23 08:59 Last Admin: 12/09/22 08:38 Dose: 20 mg Famotidine (Famotidine 20 Mg Tab) 20 mg PO BID PRN PRN Reason: Heartburn Stop: 01/07/23 15:12 Fluticasone/Vilanterol (Fluticasone/Vilanterol 200/25mcg 14 Puffs/Inhaler) 1 puffs INH QAM [facility] Stop: 01/08/23 08:59 Last Admin: 12/09/22 08:38 Dose: Not Given Gabapentin (Gabapentin 300 Mg Cap) 300 mg PO BID [facility] Stop: 01/06/23 20:59 Last Admin: 12/09/22 08:38 Dose: 300 mg Glucagon (Glucagon For Inj 1 Mg Vial) 1 mg IM UD PRN; Protocol PRN Reason: Hypoglycemia Protocol Stop: 01/03/23 20:59 Glucose (Glucose 40% Gel 15 Gm Tube) 15 - 30 gm PO UD PRN; Protocol PRN Reason: Hypoglycemia Protocol Stop: 01/03/23 20:59 Glucose (Glucose 10 Tab/Tube) 4 - 8 tab PO UD PRN; Protocol PRN Reason: Hypoglycemia Protocol Stop: 01/03/23 20:59 Insulin Aspart (Insulin Aspart Per Unit Charge) 0 units SC ACHS [facility] Stop: 01/06/23 16:29 Last Admin: 12/09/22 07:56 Dose: 3 units Levetiracetam (Levetiracetam 500 Mg Tab) 500 mg PO BID [facility] Stop: 01/06/23 20:59 Last Admin: 12/09/22 08:38 Dose: 500 mg Miscellaneous (Carbohydrates For Hypoglycemia ) 15 - 30 gm PO UD PRN PRN Reason: Hypoglycemia Treatment Stop: 01/03/23 20:59 Miscellaneous Information (Pharmacy Glycemic Mgmt Consult) 1 each N/A UD PRN; Protocol PRN Reason: Consult Stop: 01/03/23 20:34 Polyethylene Glycol (Polyethylene (Miralax) 17 Gm Pack) 17 gm PO DAILY PRN PRN Reason: Constipation Stop: 01/03/23 18:43 Prednisone (Prednisone 20 Mg Tab) 20 mg PO DAILY [facility] Stop: 01/07/23 08:59 Last Admin: 12/09/22 08:39 Dose: 20 mg Trimethoprim/Sulfamethoxazole (Sulfamethoxazole/Trimethoprim Ds 800/160mg Tab) 2 tab PO Q6 [facility] Stop: 12/12/22 05:59 Last Admin: 12/09/22 05:32 Dose: 2 tab
--- NOTE | 2022-12-09 10:27 | Cardiology Progress Note ---
Date of Service December 09, 2022 Assessment & Plan (1) Septic shock: Admission and Anticipated Discharge Date Admission Date: December 04, 2022 Supervising Physician Co-Signing Physician Notes Plan 42 yo woman presenting with severe Hypoxia (Acute) + Hypotension + Troponin EKG - no ST segment elevations CXR - bilateral infiltrates Hypotension noted - Rx transiently with Levophed for BP support Marked Leukocytosis Significant Metabolic Acidosis No major hypercarbia ECHOcardiogram: 12/05/2022 LVEF 65% No dense wall motion abnormalities noted No major valvular stenotic or regurgitant lesions RV was not markedly dilated RV function was WNL No major TR IVC was not dilated No significant Pericardial Effusion noted. Patient is treated for Infection with broad spectrum ABX AJIT on presentation (improving) No chemical evidence of shock liver Pressor Support - OFF CT of Chest - c/w PNA Broad Spectrum ABX to complete course Troponin elevation appears to be secondary to demand Peak Troponin 800+ + Hx of Stents (4 stents as per patient - all placed @ [facility]) Please continue ASA 81 mg po per day Please continue Plavix 75 mg po per day Continue Lipitor 80 mg po per day K+ goal 4.5-5 Mag++ goal >2 Plans for coronary angiography to evaluate given NSTEMI/demand ischemia on presentation Pt may have PVD - Prominent right femoral arterial bruit NPO past MN for potential cath on 12/10/2022 Dylon Sheppard Subjective Events Overnight: * none reported Subjective: * Recovering * Breathing improving * No chest pain or pressure reported Review of Systems Review of Systems: All systems reviewed & are unremarkable except as noted in HPI & below Physical Exam Physical Exam: Obese Intubated and sedated JVP difficult to assess S1S2 tachy 2/6 systolic murmur + Abdomen -soft + Right femoral bruit 2-/2 radial pulse on right No LE edema Warm and perfusing Results & Data Vital Signs (Past 12 Hours) Vital Signs Temp Pulse Pulse Resp BP Pulse Ox O2 Del Method 12/09/22 07:30 Room Air 12/09/22 08:00 113 H 12/09/22 07:09 36.7 C 108 H 20 120/80 96 Room Air 12/09/22 03:54 36.9 C 82 14 125/73 97 Nasal Cannula 12/08/22 23:26 100 H 12/08/22 23:05 36.4 C L 98 H 16 134/76 100 Nasal Cannula 12/08/22 22:34 Nasal Cannula O2 Flow Rate 12/09/22 07:30 12/09/22 08:00 12/09/22 07:09 12/09/22 03:54 1 12/08/22 23:26 12/08/22 23:05 1 12/08/22 22:34 1 Laboratory Results CBC 12/09/22 Range/Units 06:07 WBC 14.16 H (4.8-10.8) K/ul RBC 3.40 L (4.20-5.40) M/uL Hgb 8.9 L (12.0-16.0) g/dl Hct 27.8 L (37.0-47.0) % Plt Count 321 (130-400) K/uL Neut # (Auto) 8.39 H (1.40-6.50) K/uL Lymph # (Auto) 4.25 H (1.2-3.4) K/uL [place] # (Auto) 0.66 H (0.11-0.59) K/uL Eos # (Auto) 0.44 (0-0.50) K/uL Baso # (Auto) 0.02 (0-0.2) K/uL Comprehensive Metabolic Panel 12/09/22 Range/Units 06:07 Sodium 135 L (136-145) mmol/L Potassium 4.2 D (3.5-5.1) mmol/L Chloride 109 H (98-107) mmol/L Carbon Dioxide 20 L (21-32) mmol/L BUN 16 (6-23) mg/dl Creatinine 1.38 H (0.6-1.2) mg/dl Glucose 72 (70-99(Fasting)) mg/dl Calcium 9.1 (8.6-10.3) mg/dl Intake and Output 12/08/22 12/09/22 12/09/22 22:59 06:59 14:59 Intake Total 356 / 356 Balance 356 / 356 Intake: Oral 356 / 356 Other: Weight 77.9 kg Weight Measurement Method Built in [facility] Medications Administered Current Inpatient Medications Acetaminophen (Acetaminophen 500 Mg Tab) 500 mg PO Q6H PRN PRN Reason: Pain/Fever Stop: 01/07/23 21:38 Last Admin: 12/08/22 21:52 Dose: 500 mg Albuterol (Albuterol 0.083% Nebu Soln 3 Ml Vial) 2.5 mg NEB Q4 PRN; Protocol PRN Reason: wheezing, coughing Stop: 01/03/23 21:26 Albuterol (Albuterol 0.083% Nebu Soln 3 Ml Vial) 2.5 mg INH Q6R PRN; Protocol PRN Reason: SOB/wheezing Stop: 01/03/23 19:44 Aspirin (Aspirin 81 Mg Chew) 81 mg PO DAILY [facility] Stop: 01/05/23 13:29 Last Admin: 12/09/22 08:36 Dose: 81 mg Atorvastatin Calcium ([facility]atin 40 Mg Tab) [facility] Stop: 01/04/23 08:59 Last Admin: 12/09/22 08:36 Dose: 80 mg Azithromycin (Azithromycin 250 Mg Tab) [facility] Stop: 12/12/22 08:59 Last Admin: 12/09/22 08:37 Dose: 250 mg Buprenorphine/Naloxone (Buprenorphine/Naloxone 8/2 Mg Tab) 1 tab SL DAILY [facility] Stop: 01/07/23 21:39 Last Admin: 12/09/22 08:41 Dose: 1 tab Cefuroxime Axetil (Cefuroxime Axetil 500 Mg Tab) 500 mg PO BID [facility] Stop: 12/15/22 08:59 Last Admin: 12/09/22 08:37 Dose: 500 mg Clopidogrel Bisulfate (Clopidogrel Bisulfate 75 Mg Tab) 75 mg PO QAM [facility] Stop: 01/05/23 13:29 Last Admin: 12/09/22 08:37 Dose: 75 mg Dextrose (Dextrose 50% 50 Ml Syringe) 25 - 50 ml IV UD PRN; Protocol PRN Reason: Hypoglycemia Protocol Stop: 01/03/23 20:59 Enoxaparin Sodium (Enoxaparin Inj 40 Mg/0.4 Ml Syr) 40 mg SQ Q24H [facility] Stop: 01/07/23 11:59 Last Admin: 12/08/22 13:58 Dose: Not Given Escitalopram Oxalate (Escitalopram Oxalate 20 Mg Tab) 20 mg PO QAM [facility] Stop: 01/07/23 08:59 Last Admin: 12/09/22 08:38 Dose: 20 mg Famotidine (Famotidine 20 Mg Tab) 20 mg PO BID PRN PRN Reason: Heartburn Stop: 01/07/23 15:12 Fluticasone/Vilanterol (Fluticasone/Vilanterol 200/25mcg 14 Puffs/Inhaler) 1 puffs INH QAM [facility] Stop: 01/08/23 08:59 Last Admin: 12/09/22 08:38 Dose: Not Given Gabapentin (Gabapentin 300 Mg Cap) 300 mg PO BID [facility] Stop: 01/06/23 20:59 Last Admin: 12/09/22 08:38 Dose: 300 mg Glucagon (Glucagon For Inj 1 Mg Vial) 1 mg IM UD PRN; Protocol PRN Reason: Hypoglycemia Protocol Stop: 01/03/23 20:59 Glucose (Glucose 40% Gel 15 Gm Tube) 15 - 30 gm PO UD PRN; Protocol PRN Reason: Hypoglycemia Protocol Stop: 01/03/23 20:59 Glucose (Glucose 10 Tab/Tube) 4 - 8 tab PO UD PRN; Protocol PRN Reason: Hypoglycemia Protocol Stop: 01/03/23 20:59 Insulin Aspart (Insulin Aspart Per Unit Charge) 0 units SC ACHS [facility] Stop: 01/06/23 16:29 Last Admin: 12/09/22 07:56 Dose: 3 units Levetiracetam (Levetiracetam 500 Mg Tab) 500 mg PO BID [facility] Stop: 01/06/23 20:59 Last Admin: 12/09/22 08:38 Dose: 500 mg Miscellaneous (Carbohydrates For Hypoglycemia ) 15 - 30 gm PO UD PRN PRN Reason: Hypoglycemia Treatment Stop: 01/03/23 20:59 Miscellaneous Information (Pharmacy Glycemic Mgmt Consult) 1 each N/A UD PRN; Protocol PRN Reason: Consult Stop: 01/03/23 20:34 Polyethylene Glycol (Polyethylene (Miralax) 17 Gm Pack) 17 gm PO DAILY PRN PRN Reason: Constipation Stop: 01/03/23 18:43 Prednisone (Prednisone 20 Mg Tab) 20 mg PO DAILY [facility] Stop: 01/07/23 08:59 Last Admin: 12/09/22 08:39 Dose: 20 mg Trimethoprim/Sulfamethoxazole (Sulfamethoxazole/Trimethoprim Ds 800/160mg Tab) 2 tab PO Q6 [facility] Stop: 12/12/22 05:59 Last Admin: 12/09/22 05:32 Dose: 2 tab
[2022-12-09] MEDS: ENOXAPARIN INJ 40 MG/0.4 ML SYR SQ SCH (11:44)
[2022-12-09] MEDS: traZODone HCL 50 MG TAB PO SCH (20:48)
[2022-12-09] MEDS ORDERED: SODIUM CHLORIDE 0.9% 1000ML 1,000 ML IV SCH (21:00)
[2022-12-10] MEDS: SULFAMETHOXAZOLE/TRIMETHOPRIM DS 800/160MG TAB PO SCH ×4 (00:28→17:07)
[2022-12-10 06:58] LABS: Basophils # (auto) 0.06 K/uL (0-0.2); Basophils % (auto) 0.4 %; Eosinophils % (auto) 3.6 %; Hematocrit (blood only) 29.8 % (37.0-47.0); Hemoglobin 9.3 g/dl (12.0-16.0); Immature Granulocytes # (auto) 0.68 K/uL (0.01-0.20); Immature Granulocytes % (auto) 4.8 %; Lymphocytes # (auto) 4.61 K/uL (1.2-3.4); Lymphocytes % (auto) 32.8 %; Mean Corpuscular Hemoglobin 26.1 pg (25.0-34.0); Mean Corpuscular Hgb Conc 31.2 g/dL (32.0-36.0); Mean Corpuscular Volume 83.7 fL (80.0-100.0); Mean Platelet Volume 10.1 fL (9.4-12.4); Monocytes # (auto) 0.72 K/uL (0.11-0.59); Monocytes % (auto) 5.1 %; Neutrophils # (auto) 7.47 K/uL (1.40-6.50); Neutrophils % (auto) 53.3 %; Platelet Count 348 K/uL (130-400); RDW Coefficient of Variation 19.4 % (11.5-14.5); RDW Standard Deviation 59.1 fL (36.4-46.3); Red Blood Count 3.56 M/uL (4.20-5.40); White Blood Count 14.04 K/ul (4.8-10.8)
[2022-12-10 07:18] LABS: BUN Creatinine Ratio 11.9 (10-20); Calcium 9.1 mg/dl (8.6-10.3); Creatinine Clr Calc Pharmacy 42.4 ml/min; Est GFR (African American) 42.4 ml/min; Est GFR (Non-African American) 36.6 ml/min; Potassium 4.3 mmol/L (3.5-5.1)
[2022-12-10] MEDS: INSULIN ASPART PER UNIT CHARGE SC SCH ×4 (07:38→20:12)
--- NOTE | 2022-12-10 07:38 | Cardiology Progress Note ---
Date of Service December 10, 2022 Assessment & Plan (1) Septic shock: Plan Plan 42 yo woman presenting with severe Hypoxia (Acute) + Hypotension + Troponin EKG - no ST segment elevations CXR - bilateral infiltrates Hypotension noted - Rx transiently with Levophed for BP support Marked Leukocytosis Significant Metabolic Acidosis No major hypercarbia ECHOcardiogram: LVEF 65% No dense wall motion abnormalities noted No major valvular stenotic or regurgitant lesions + Aortic Sclerosis RV was not markedly dilated RV function was WNL No major TR IVC was not dilated No significant Pericardial Effusion noted. Patient treated for Infection with broad spectrum ABX Metabolic acidosis on presentation Lactate back to normal - 1.6 Creat appears to be c/w AJIT on presentation (improving) No chemical evidence of shock liver K+ goal 4.5-5 Mag++ goal >2 Currently MAP >[address] of Chest - c/w PNA Troponin elevation appears to be secondary to demand + Hx of Stents Please continue ASA 81 mg po per day Please continue Plavix 75 mg po per day LFTs - not markedly elevated Continue Lipitor 80 mg po per day Plans for: * Coronary angiography to evaluate given NSTEMI/demand ischemia on presentation * Crossing Aortic Valve - harsh murmur - Aortic valve appears to be opening on ECHO Pt is NPO Creatinine jagjit slightly overnight - consider mild hydration with NS (250 cc NS F/B 100 cc/hr for total of 550 cc) +/_ repeat BMP Dylon Sheppard Admission and Anticipated Discharge Date Admission Date: December 04, 2022 Supervising Physician Co-Signing Physician Notes Plan 42 yo woman presenting with severe Hypoxia (Acute) + Hypotension + Troponin EKG - no ST segment elevations CXR - bilateral infiltrates Hypotension noted - Rx transiently with Levophed for BP support Marked Leukocytosis Significant Metabolic Acidosis No major hypercarbia ECHOcardiogram: 12/05/2022 LVEF 65% No dense wall motion abnormalities noted No major valvular stenotic or regurgitant lesions RV was not markedly dilated RV function was WNL No major TR IVC was not dilated No significant Pericardial Effusion noted. Patient is treated for Infection with broad spectrum ABX AJIT on presentation (improving) No chemical evidence of shock liver Pressor Support - OFF CT of Chest - c/w PNA Broad Spectrum ABX to complete course Troponin elevation appears to be secondary to demand Peak Troponin 800+ + Hx of Stents (4 stents as per patient - all placed @ [facility]) Please continue ASA 81 mg po per day Please continue Plavix 75 mg po per day Continue Lipitor 80 mg po per day K+ goal 4.5-5 Mag++ goal >2 Plans for coronary angiography to evaluate given NSTEMI/demand ischemia on presentation Pt may have PVD - Prominent right femoral arterial bruit NPO past MN for potential cath on 12/10/2022 Dylon Sheppard Subjective Events overnight: * None reported * No telemetry events Subjective: * No chest pain * No dyspnea * No palpitations Review of Systems Review of Systems: All systems reviewed & are unremarkable except as noted in HPI & below Physical Exam Physical Exam: Obese Intubated and sedated JVP at base of neck S1S2 tachy 2/6 systolic murmur (Harsh) + Abdomen -soft + Right femoral bruit 2-/2 radial pulse on right No LE edema Warm and perfusing Results & Data Vital Signs (Past 12 Hours) Vital Signs Temp Pulse Pulse Resp BP Pulse Ox O2 Del Method 12/10/22 07:26 36.7 C 97 H 18 123/79 97 Room Air 12/10/22 03:45 36.7 C 79 14 116/73 97 Nasal Cannula 12/09/22 23:44 88 12/09/22 23:23 36.9 C 80 14 108/69 97 Nasal Cannula 12/09/22 20:09 Room Air 12/09/22 20:01 37.3 C 91 H 16 122/76 95 Room Air O2 Flow Rate 12/10/22 07:26 12/10/22 03:45 2 12/09/22 23:44 12/09/22 23:23 3 12/09/22 20:09 12/09/22 20:01 Laboratory Results CBC 12/10/22 Range/Units 06:13 WBC 14.04 H (4.8-10.8) K/ul RBC 3.56 L (4.20-5.40) M/uL Hgb 9.3 L (12.0-16.0) g/dl Hct 29.8 L (37.0-47.0) % Plt Count 348 (130-400) K/uL Neut # (Auto) 7.47 H (1.40-6.50) K/uL Lymph # (Auto) 4.61 H (1.2-3.4) K/uL [place] # (Auto) 0.72 H (0.11-0.59) K/uL Eos # (Auto) 0.50 (0-0.50) K/uL Baso # (Auto) 0.06 (0-0.2) K/uL Comprehensive Metabolic Panel 12/10/22 Range/Units 06:13 Sodium 138 (136-145) mmol/L Potassium 4.3 (3.5-5.1) mmol/L Chloride 112 H (98-107) mmol/L Carbon Dioxide 18 L (21-32) mmol/L BUN 20 (6-23) mg/dl Creatinine 1.68 H D (0.6-1.2) mg/dl Glucose 73 (70-99(Fasting)) mg/dl Calcium 9.1 (8.6-10.3) mg/dl Intake and Output 12/09/22 12/10/22 12/10/22 22:59 06:59 14:59 Intake Total 450 / 1066 Output Total 1 / 2 Balance 449 / 1064 Intake: Oral 450 / 1066 Output: Urine Other: Weight 78.7 kg Weight Measurement [facility] Medications Administered Current Inpatient Medications Acetaminophen (Acetaminophen 500 Mg Tab) 500 mg PO Q6H PRN PRN Reason: Pain/Fever Stop: 01/07/23 21:38 Last Admin: 12/08/22 21:52 Dose: 500 mg Albuterol (Albuterol 0.083% Nebu Soln 3 Ml Vial) 2.5 mg NEB Q4 PRN; Protocol PRN Reason: wheezing, coughing Stop: 01/03/23 21:26 Albuterol (Albuterol 0.083% Nebu Soln 3 Ml Vial) 2.5 mg INH Q6R PRN; Protocol PRN Reason: SOB/wheezing Stop: 01/03/23 19:44 Aspirin (Aspirin 81 Mg Chew) 81 mg PO DAILY [facility] Stop: 01/05/23 13:29 Last Admin: 12/09/22 08:36 Dose: 81 mg Atorvastatin Calcium (Atorvastatin 40 Mg Tab) 80 mg PO QAM [facility] Stop: 01/04/23 08:59 Last Admin: 12/09/22 08:36 Dose: 80 mg Azithromycin (Azithromycin 250 Mg Tab) 250 mg PO QAM [facility] Stop: 12/12/22 08:59 Last Admin: 12/09/22 08:37 Dose: 250 mg Buprenorphine/Naloxone (Buprenorphine/Naloxone 8/2 Mg Tab) 1 tab SL DAILY [facility] Stop: 01/07/23 21:39 Last Admin: 12/09/22 08:41 Dose: 1 tab Cefuroxime Axetil (Cefuroxime Axetil 500 Mg Tab) 500 mg PO BID [facility] Stop: 12/15/22 08:59 Last Admin: 12/09/22 20:44 Dose: 500 mg Clopidogrel Bisulfate (Clopidogrel Bisulfate 75 Mg Tab) 75 mg PO QAM [facility] Stop: 01/05/23 13:29 Last Admin: 12/09/22 08:37 Dose: 75 mg Dextrose (Dextrose 50% 50 Ml Syringe) 25 - 50 ml IV UD PRN; Protocol PRN Reason: Hypoglycemia Protocol Stop: 01/03/23 20:59 Enoxaparin Sodium (Enoxaparin Inj 40 Mg/0.4 Ml Syr) 40 mg SQ Q24H [facility] Stop: 01/07/23 11:59 Last Admin: 12/09/22 11:44 Dose: 40 mg Escitalopram Oxalate (Escitalopram Oxalate 20 Mg Tab) 20 mg PO QAM [facility] Stop: 01/07/23 08:59 Last Admin: 12/09/22 08:38 Dose: 20 mg Famotidine (Famotidine 20 Mg Tab) 20 mg PO BID PRN PRN Reason: Heartburn Stop: 01/07/23 15:12 Fluticasone/Vilanterol (Fluticasone/Vilanterol 200/25mcg 14 Puffs/Inhaler) 1 puffs INH QAM [facility] Stop: 01/08/23 08:59 Last Admin: 12/09/22 08:38 Dose: Not Given Gabapentin (Gabapentin 300 Mg Cap) 300 mg PO BID [facility] Stop: 01/06/23 20:59 Last Admin: 12/09/22 20:45 Dose: 300 mg Glucagon (Glucagon For Inj 1 Mg Vial) 1 mg IM UD PRN; Protocol PRN Reason: Hypoglycemia Protocol Stop: 01/03/23 20:59 Glucose (Glucose 40% Gel 15 Gm Tube) 15 - 30 gm PO UD PRN; Protocol PRN Reason: Hypoglycemia Protocol Stop: 01/03/23 20:59 Glucose (Glucose 10 Tab/Tube) 4 - 8 tab PO UD PRN; Protocol PRN Reason: Hypoglycemia Protocol Stop: 01/03/23 20:59 Sodium Chloride (Nss 1000ml) 1,000 mls @ 65 mls/hr IV .[id number] [facility] Stop: 01/08/23 20:59 Last Admin: 12/09/22 20:48 Dose: 65 mls/hr Insulin Aspart (Insulin Aspart Per Unit Charge) 0 units SC ACHS [facility] Stop: 01/06/23 16:29 Last Admin: 12/09/22 20:43 Dose: 3 units Levetiracetam (Levetiracetam 500 Mg Tab) 500 mg PO BID [facility] Stop: 01/06/23 20:59 Last Admin: 12/09/22 20:45 Dose: 500 mg Miscellaneous (Carbohydrates For Hypoglycemia ) 15 - 30 gm PO UD PRN PRN Reason: Hypoglycemia Treatment Stop: 01/03/23 20:59 Miscellaneous Information (Pharmacy Glycemic Mgmt Consult) 1 each N/A UD PRN; Protocol PRN Reason: Consult Stop: 01/03/23 20:34 Polyethylene Glycol (Polyethylene (Miralax) 17 Gm Pack) 17 gm PO DAILY PRN PRN Reason: Constipation Stop: 01/03/23 18:43 Prednisone (Prednisone 20 Mg Tab) 20 mg PO DAILY [facility] Stop: 01/07/23 08:59 Last Admin: 12/09/22 08:39 Dose: 20 mg Trazodone HCl (Trazodone Hcl 50 Mg Tab) 75 mg PO HS [facility] Stop: 01/08/23 20:59 Last Admin: 12/09/22 20:48 Dose: 75 mg Trimethoprim/Sulfamethoxazole (Sulfamethoxazole/Trimethoprim Ds 800/160mg Tab) 2 tab PO Q6 [facility] Stop: 12/12/22 05:59 Last Admin: 12/10/22 06:04 Dose: 2 tab
[2022-12-10] MEDS: predniSONE 20 MG TAB PO SCH (08:54)
[2022-12-10] MEDS: ESCITALOPRAM OXALATE 20 MG TAB PO SCH (08:54)
[2022-12-10] MEDS: AZITHROMYCIN 250 MG TAB PO SCH (08:54)
[2022-12-10] MEDS: FAMOTIDINE 20 MG TAB PO PRN ×2 (08:55→12:40)
[2022-12-10] MEDS: GABAPENTIN 300 MG CAP PO SCH ×2 (08:55→20:11)
[2022-12-10] MEDS: ATORVASTATIN 40 MG TAB PO SCH (08:55)
[2022-12-10] MEDS: cefUROXime axetil 500 MG TAB PO SCH ×2 (08:55→20:12)
[2022-12-10] MEDS: CLOPIDOGREL BISULFATE 75 MG TAB PO SCH (08:55)
[2022-12-10] MEDS: levETIRAcetam 500 MG TAB PO SCH ×2 (08:55→20:11)
[2022-12-10] MEDS: FLUTICASONE/VILANTEROL 200/25MCG 14 PUFFS/INHALER INH SCH (08:57)
[2022-12-10] MEDS: ASPIRIN 81 MG CHEW PO SCH (09:10)
[2022-12-10] MEDS ORDERED: niCARdipine HCL INJ 2.5 MG/ML 10 ML AMP ONE (09:36)
[2022-12-10] MEDS ORDERED: MIDAZOLAM HCL 1 MG/ML 2ML VIAL ONE ×3 (09:36→10:31)
[2022-12-10] MEDS ORDERED: HEPARIN (PORCINE) 1000 UNIT/ML 10 ML (CATH LAB USE ONLY) ONE (09:36)
[2022-12-10] MEDS ORDERED: NITROGLYCERIN/D5W 100MCG/ML 20ML SYR ONE (09:37)
[2022-12-10] MEDS ORDERED: fentaNYL citrate PF 100 MCG/2 ML VIAL ONE ×2 (09:37→10:24)
--- NOTE | 2022-12-10 09:57 | Pre Anesthesia Assessment ---
Date of Service December 10, 2022 Pre Sedation Assessment Vital Signs Temp Pulse Pulse Resp BP BP Pulse Ox 12/10/22 09:00 12/10/22 09:26 103 H 16 122/85 97 12/10/22 08:00 85 12/10/22 07:26 98.1 F 97 H 18 123/79 97 12/10/22 03:45 98.1 F 79 14 116/73 97 12/09/22 23:44 88 12/09/22 23:23 98.4 F 80 14 108/69 97 12/09/22 20:09 12/09/22 20:01 99.1 F 91 H 16 122/76 95 12/09/22 15:58 113 H 12/09/22 15:50 98.1 F 87 20 127/84 99 12/09/22 10:48 98.1 F 105 H 21 119/80 92 O2 Del Method O2 Flow Rate 12/10/22 09:00 Room Air 12/10/22 09:26 Room Air 12/10/22 08:00 12/10/22 07:26 Room Air 12/10/22 03:45 Nasal Cannula 2 12/09/22 23:44 12/09/22 23:23 Nasal Cannula 3 12/09/22 20:09 Room Air 12/09/22 20:01 Room Air 12/09/22 15:58 12/09/22 15:50 Room Air 12/09/22 10:48 Room Air Cardiovascular + regular rate Respiratory + respiratory effort normal Pre-Sedation Airway Assessment Smoking Status: Heavy tobacco smoker Hx Sleep Apnea: No Hx Difficult Intubation: No Short, Thick Neck: No Thyromental Distance: > or= 3.5 Finger Breadths Oral Cavity: + WNL Mallampati Class: IV ASA: ASA4 NPO Status Date of Last Intake of Fluids: 12/10/22 Time of Last Intake of Fluids: 08:00 Last Oral Intake of Fluids Comment: sip with meds Date of Last Intake of Solid Food: 12/09/22 Time of Last Intake of Solid Foods: 18:30 Procedure Planning Contraindications for Sedation: none Current Medications Reviewed: Yes Notes The planned sedation has been discussed with the patient. Informed Consent was obtained. I have identified the patient, determined the appropriateness of sedation and have assessed the patient immediately prior to the procedure. All medicine(s) and interventions are by my order.
[2022-12-10] MEDS ORDERED: SODIUM CHLORIDE 0.9% 1000ML 250 ML IV ONE (10:14)
[2022-12-10] MEDS ORDERED: SODIUM CHLORIDE 0.9% 500 ML IV SCH (10:15)
--- NOTE | 2022-12-10 10:19 | Hospitalist Progress Note ---
Date of Service December 10, 2022 Assessment & Plan (1) Septic shock: Plan: 2/2 pneumonia, she is off pressors and now extubated. Hemodynamically stable. (2) Acute on chronic respiratory failure with hypoxia: Plan: extubated successfully on 12/07. Continues on nebulized bronchodilators as needed today, Zosyn, Azithromycin and Bactrim. Continues on prednisone 20mg daily. (3) Acute renal failure: Plan: creatinine was improving, but is now increased to 1.68. She received contrast today in her cardiac cath. Will cont to trend BMP. This may be related to ongoing Bactrim. Alternative treatment for PJP pneumonia may need to be considered, but serology is not back yet. She should be finished with treatment tomorrow. Cont for now and monitor creatinine and potassium. (4) Multifocal pneumonia: Plan: Admitted to ICU Patient presenting from home with reports of worsening shortness of breath. Initially required 15L NRB and subsequent intubation in the ER due to respiratory distress. On presentation, hypotensive requiring Levophed, tachycardic, WBC 29 K, lactic acid 4.1, creatinine 2.2 CT chest showing multifocal pneumonia, bedside echo confirmed she was not volume overloaded Cont Zosyn, azithromycin, Bactrim Day 5 with Vanc discontinued Blood cultures negative to date Status post bronchoscopy on 12/05 PJP still pending, Legionella Ag was negative. Extubated 12/07 successfully. Cont abx and steroids as noted above. (5) Elevated troponin: Plan: 2/2 demand ischemia per cardiology in setting of sepsis (6) Coronary artery disease: Plan: Initial troponin was 843 and subsequent troponins did not show any increased No reports of chest pain, EKG without acute ST changes Stat echo obtained in ED with cardiology at the bedside --no wall motion abnormalities noted, EF 60% Elevated troponin likely secondary to sepsis with strain Continue aspirin 81 mg daily and Plavix Cardiac cath per cardiology when she is improved. Creatinine is still elevated-will discuss this with the team for after the weekend. (7) Chronic diastolic CHF (congestive heart failure): Plan: chronic typically on torsemide bid, she did receive one dose of furosemide 20mg IV this admission, however, resp failure attributed mostly to infection at this point. will hold off on restarting home torsemide given recentl illness and renal failure just now resolved and because of possible plans for heart catheterization to avoid PAMELA. (8) Aortic stenosis: Plan: moderate, chronic, monitor volume status during resuscitation. Currently appears euvolemic. Cont current therapy. (9) Seizure disorder: Plan: chronic, stable. Cont AED (10) Polysubstance abuse: Plan: History of, on Suboxone which has been restarted. She also requested Trazodone 75mg qHS which was restarted after she reported insomnia last evening. DVT PROPHYLAXIS SQ heparin Full Code I spent a total [id number] coordinating, documenting, and providing care for this patient excluding time spent in the performance of separately billed services Zina Smith DO [facility] Hospitalist Admission and Anticipated Discharge Date Admission Date: December 04, 2022 Subjective 42-year-old critically ill female presented with septic shock secondary to pneumonia. reports her cough present yesterday has resolved she is now breathing well on room air no SOB or coughing afebrile tolerating PO Cardiac catheterization performed this am renal function worse today, she did receive preoperative IVf. Review of Systems Review of Systems: All systems were reviewed and negative except as indicated on subjective above. Physical Exam Physical Exam: CONSTITUTIONAL: WNWD, vitals as above, generally well-appearing, NAD EYES: normal conjunctivae, no scleral icterus, ENT: external ear and nose normal, oropharynx clear, NECK: trachea midline RESPIRATORY: CTAB, good diaphragmatic excursion, no increased respiratory effort. CARDIOVASCULAR: regular rate and rhythm, 3/6 MAXIME, no gallops or rubs, no JVD, no peripheral edema CHEST: inspection of chest was normal GASTROINTESTINAL: soft, nontender, ND, no guarding MUSCULOSKELETAL: WNWD, moves all extremities equally SKIN: warm and dry NEUROLOGIC: no gross focal deficits. Speech intact. PSYCHIATRIC: alert and oriented. Results & Data Results & Data Vital Signs (Past 12 Hours) Vital Signs Temp Pulse Pulse Resp BP Pulse Ox O2 Del Method 12/10/22 09:00 Room Air 12/10/22 09:26 103 H 16 122/85 97 Room Air 12/10/22 08:00 85 12/10/22 07:26 36.7 C 97 H 18 123/79 97 Room Air 12/10/22 03:45 36.7 C 79 14 116/73 97 Nasal Cannula 12/09/22 23:44 88 12/09/22 23:23 36.9 C 80 14 108/69 97 Nasal Cannula O2 Flow Rate 12/10/22 09:00 12/10/22 09:26 12/10/22 08:00 12/10/22 07:26 12/10/22 03:45 2 12/09/22 23:44 12/09/22 23:23 3 Laboratory Results Short CBC 12/10/22 Range/Units 06:13 WBC 14.04 H (4.8-10.8) K/ul Hgb 9.3 L (12.0-16.0) g/dl Hct 29.8 L (37.0-47.0) % Plt Count 348 (130-400) K/uL BMP 12/10/22 06:13 Sodium 138 Potassium 4.3 Chloride 112 H Carbon Dioxide 18 L BUN 20 Creatinine 1.68 H D Glucose 73 Calcium 9.1 Medications Administered Current Inpatient Medications Acetaminophen (Acetaminophen 500 Mg Tab) 500 mg PO Q6H PRN PRN Reason: Pain/Fever Stop: 01/07/23 21:38 Last Admin: 12/08/22 21:52 Dose: 500 mg Albuterol (Albuterol 0.083% Nebu Soln 3 Ml Vial) 2.5 mg NEB Q4 PRN; Protocol PRN Reason: wheezing, coughing Stop: 01/03/23 21:26 Albuterol (Albuterol 0.083% Nebu Soln 3 Ml Vial) 2.5 mg INH Q6R PRN; Protocol PRN Reason: SOB/wheezing Stop: 01/03/23 19:44 Aspirin (Aspirin 81 Mg Chew) 81 mg PO DAILY [facility] Stop: 01/05/23 13:29 Last Admin: 12/10/22 09:10 Dose: 81 mg Atorvastatin Calcium (Atorvastatin 40 Mg Tab) 80 mg PO QAM [facility] Stop: 01/04/23 08:59 Last Admin: 12/10/22 08:55 Dose: 80 mg Azithromycin (Azithromycin 250 Mg Tab) 250 mg PO QAM [facility] Stop: 12/12/22 08:59 Last Admin: 12/10/22 08:54 Dose: 250 mg Buprenorphine/Naloxone (Buprenorphine/Naloxone 8/2 Mg Tab) 1 tab SL DAILY [facility] Stop: 01/07/23 21:39 Last Admin: 12/09/22 08:41 Dose: 1 tab Cefuroxime Axetil (Cefuroxime Axetil 500 Mg Tab) 500 mg PO BID [facility] Stop: 12/15/22 08:59 Last Admin: 12/10/22 08:55 Dose: 500 mg Clopidogrel Bisulfate (Clopidogrel Bisulfate 75 Mg Tab) 75 mg PO QAM [facility] Stop: 01/05/23 13:29 Last Admin: 12/10/22 08:55 Dose: 75 mg Dextrose (Dextrose 50% 50 Ml Syringe) 25 - 50 ml IV UD PRN; Protocol PRN Reason: Hypoglycemia Protocol Stop: 01/03/23 20:59 Enoxaparin Sodium (Enoxaparin Inj 40 Mg/0.4 Ml Syr) 40 mg SQ Q24H [facility] Stop: 01/07/23 11:59 Last Admin: 12/09/22 11:44 Dose: 40 mg Escitalopram Oxalate (Escitalopram Oxalate 20 Mg Tab) 20 mg PO QAM [facility] Stop: 01/07/23 08:59 Last Admin: 12/10/22 08:54 Dose: 20 mg Famotidine (Famotidine 20 Mg Tab) 20 mg PO BID PRN PRN Reason: Heartburn Stop: 01/07/23 15:12 Last Admin: 12/10/22 08:55 Dose: 20 mg Fluticasone/Vilanterol (Fluticasone/Vilanterol 200/25mcg 14 Puffs/Inhaler) 1 puffs INH QAM [facility] Stop: 01/08/23 08:59 Last Admin: 12/10/22 08:57 Dose: Not Given Gabapentin (Gabapentin 300 Mg Cap) 300 mg PO BID [facility] Stop: 01/06/23 20:59 Last Admin: 12/10/22 08:55 Dose: 300 mg Glucagon (Glucagon For Inj 1 Mg Vial) 1 mg IM UD PRN; Protocol PRN Reason: Hypoglycemia Protocol Stop: 01/03/23 20:59 Glucose (Glucose 40% Gel 15 Gm Tube) 15 - 30 gm PO UD PRN; Protocol PRN Reason: Hypoglycemia Protocol Stop: 01/03/23 20:59 Glucose (Glucose 10 Tab/Tube) 4 - 8 tab PO UD PRN; Protocol PRN Reason: Hypoglycemia Protocol Stop: 01/03/23 20:59 Insulin Aspart (Insulin Aspart Per Unit Charge) 0 units SC ACHS [facility] Stop: 01/06/23 16:29 Last Admin: 12/10/22 07:38 Dose: Not Given Levetiracetam (Levetiracetam 500 Mg Tab) 500 mg PO BID [facility] Stop: 01/06/23 20:59 Last Admin: 12/10/22 08:55 Dose: 500 mg Miscellaneous (Carbohydrates For Hypoglycemia ) 15 - 30 gm PO UD PRN PRN Reason: Hypoglycemia Treatment Stop: 01/03/23 20:59 Miscellaneous Information (Pharmacy Glycemic Mgmt Consult) 1 each N/A UD PRN; Protocol PRN Reason: Consult Stop: 01/03/23 20:34 Polyethylene Glycol (Polyethylene (Miralax) 17 Gm Pack) 17 gm PO DAILY PRN PRN Reason: Constipation Stop: 01/03/23 18:43 Prednisone (Prednisone 20 Mg Tab) 20 mg PO DAILY [facility] Stop: 01/07/23 08:59 Last Admin: 12/10/22 08:54 Dose: 20 mg Trazodone HCl (Trazodone Hcl 50 Mg Tab) 75 mg PO HS [facility] Stop: 01/08/23 20:59 Last Admin: 12/09/22 20:48 Dose: 75 mg Trimethoprim/Sulfamethoxazole (Sulfamethoxazole/Trimethoprim Ds 800/160mg Tab) 2 tab PO Q6 [facility] Stop: 12/12/22 05:59 Last Admin: 12/10/22 06:04 Dose: 2 tab
[2022-12-10 10:47] LABS: iSTAT Arterial Blood Gas HCO3 17 meg/L (19-24); iSTAT Arterial Blood Gas pCO2 31 mmHg (35-46); iSTAT Arterial Blood Gas pH 7.35 (7.35-7.45); iSTAT Arterial Blood Gas pO2 34 mmHg (80-95); iSTAT Carbon Dioxide 18 mmol/L (24-31); iSTAT Hematocrit 26 % (37-47); iSTAT Hemoglobin 8.8 g/dl (12.0-16.0); iSTAT Potassium 4.3 mmol/L (3.3-5.0); iSTAT Sodium 139 mmol/L (135-144)
[2022-12-10] MEDS ORDERED: ADENOSINE IV SOLN 3 MG/ML 20 ML VIAL IV ONE (10:50)
[2022-12-10 11:24] LABS: iSTAT Arterial Blood Gas HCO3 15 meg/L (19-24); iSTAT Arterial Blood Gas pCO2 25 mmHg (35-46); iSTAT Arterial Blood Gas pH 7.38 (7.35-7.45); iSTAT Arterial Blood Gas pO2 60 mmHg (80-95); iSTAT Carbon Dioxide 16 mmol/L (24-31); iSTAT Hematocrit 25 % (37-47); iSTAT Hemoglobin 8.5 g/dl (12.0-16.0); iSTAT Potassium 4.2 mmol/L (3.3-5.0); iSTAT Sodium 140 mmol/L (135-144)
--- NOTE | 2022-12-10 11:28 | Post Anesthesia Assessment ---
Date of Service December 10, 2022 Post Sedation Assessment Vital Signs Temp Pulse Pulse Resp BP BP Pulse Ox 12/10/22 11:15 90 16 120/85 97 12/10/22 09:00 12/10/22 09:26 103 H 16 122/85 97 12/10/22 08:00 85 12/10/22 07:26 98.1 F 97 H 18 123/79 97 12/10/22 03:45 98.1 F 79 14 116/73 97 12/09/22 23:44 88 12/09/22 23:23 98.4 F 80 14 108/69 97 12/09/22 20:09 12/09/22 20:01 99.1 F 91 H 16 122/76 95 12/09/22 15:58 113 H 12/09/22 15:50 98.1 F 87 20 127/84 99 O2 Del Method O2 Flow Rate 12/10/22 11:15 Room Air 12/10/22 09:00 Room Air 12/10/22 09:26 Room Air 12/10/22 08:00 12/10/22 07:26 Room Air 12/10/22 03:45 Nasal Cannula 2 12/09/22 23:44 12/09/22 23:23 Nasal Cannula 3 12/09/22 20:09 Room Air 12/09/22 20:01 Room Air 12/09/22 15:58 12/09/22 15:50 Room Air Recovery Score Activity: Moves 4 extremities Respiration: Deep Breath/Cough Circulation: +/-20% PreAnes Value Consciousness: Fully Awake Oxygen Saturation: > 92% On Room Air Post Anesthesia Score: 10 Discharge Sedation Level of Care: Fast Track Phase II Post Sedation Plan On clinical assessment, the patient appears to have tolerated the sedation without complications. Patient is recovering as anticipated. Patient will continue to be monitored by nursing and may be discharged when sedation discharge criteria are met per below protocol. Upon Completions of procedure up to 15 minutes continue every 5 minute vital signs and the P.A.R. score; then discharge to a Phase I or Fast Track to Phase II per the following guidelines: * Discharge Patient to appropriate Phase II area if PAR is 8 or greater or return to pre- procedure baseline. The post - procedure orders will be as directed. * If PAR score is less than 8 or not return to pre-procedure baseline then patient will follow Phase I monitoring till PAR is reached for Phase II. The Phase I may be done in procedure room or may call to secure a Phase I area. * If naloxone or flumazenil are used for reversal, hold in Phase I for continued monitoring from when last reversal dose was given for a minimum of 60 minutes or longer pending the nurse and/or physician discretion of patient condition before discharge to Phase II. Please call the Sedation Physician to re-evaluate and complete post-note for discharge to Phase II area. Do NOT discharge from procedure sedation or Phase 1 until post- sedation evaluation note is complete by procedure /sedation MD Sedation Discharge Instructions to be given to the patient at discharge to home.
--- NOTE | 2022-12-10 11:45 | Cardiac Catheterization ---
[facility] Data: Remediation Technician Cardiac Status Clinical evaluation leading to the procedure CAD Presenation: Unstable angina Anginal Classification: CCS IV Diagnostic Physicians Name: Liu Hay MD Closure Device Recommendations: Medical Therapy and/or Counseling Cardiac Cath Procedure Full Procedure Date December 10, 2022 Pre-Procedure Diagnosis Pre-Procedure Diagnosis: Non STEMI and CAD AUC Score AUC Score: 8 Post-Procedure Diagnosis Post-Procedure Diagnosis: Severe CAD and Elevated Intracardiac Pressures Procedure(s) Performed Procedure(s) Performed: Coronary Angiography, Left Heart Cath, Right Heart Cath, Ultrasound Guided Vascular Access and Fractional Flow [place] [employer] Liu Hay MD Work Adjustment Instructor(s) Sea Estimated Blood Loss Estimated Blood Loss: 15 Medication(s) Medication(s): Fentanyl, Heparin, Lidocaine 1%, Nicardipine, Nitroglycerin and Versed Summary of Findings Indication: NSTEMI, history of coronary disease, aortic stenosis Access: 6 Fr left radial artery, 6 Fr left brachial vein, 6 Fr right common femoral vein all under ultrasound guidance Catheters: 6 Fr [place], JR4, JL 3.5, EBU 3.5 guide Findings: LM -normal caliber, no significant disease LAD -large caliber vessel, calcified, 50 to 60% mid stenosis at takeoff of D1, 30% distal stenosis with myocardial bridging, apical vessel continues around apex without significant disease. Small to medium D1 without disease. Ramussmall to medium caliber, 30% ostial, mid segment stent widely patent Circumflex -medium caliber, 30% mid segment stenosis, distal stent into left PLB widely patent without significant in-stent restenosis. RCA -dominant, medium caliber, 30% mid segment disease, 30% distal stenosis just before PDA. Mid RPDA stent widely patent. RA 2 RV 28/6 PA. 23/10 (14) PAWP 9 LV 9 PaSat 63% AoSat 91% Lori CO/CI 7.7/4.2 Thermo CO/CI 7.8/4.3 Aortic valve: Peak BP gradient 30 Calculated mean gradient 26.3 Calculated PEDRO LUIS 1.33 For full details of patient's coronary angiography please see cath report dictated by []. IFR of LAD procedure: -Left main cannulated with EBU 3.5 guide -[facility] ([facility]) FFR wire placed into distal LAD -IFR 0.87 -Coronary angiography revealed no apparent complications post wire/catheter removal Summary: 1. Widely patent ramus, circumflex, PDA stents 2. Chronic, moderate to severe, calcified mid LAD stenosis at bifurcation with D1 (LAD obstructive by IFR 0.87). 3. Moderate aortic stenosis (peak to peak gradient 30, mean gradient 26, PEDRO LUIS 1.33). 4. Normal right and left-sided filling pressures 5. Normal cardiac output 6. Normal pulmonary artery pressures Recommendations: No high-risk, acute CAD. Recommend medical management of chronic mid LAD bifurcation lesion. If refractory angina in the future LAD appears amenable to PCI. Continue ASCVD risk factor modification and aortic valve surveillance per Dr. Rutherford and Dr. Sheppard. Hemodynamics Rest Ao:: 118/89/95 Final Ao: 118/79/95 LV: 140/9 Recommendations Recommendations: Medical Therapy and/or Counseling Specimens Specimens: None Radiation Exposure (mGy) 161 Contrast (mls) 75 Anesthesia Moderate 7940-1795 Procedural Complication(s) None Disposition PCU I attest to the content of the Intraoperative Record and any orders documented therein. Any exceptions are noted below. [facility] Card Cath Procedure Codes Cardiac Catheterization Procedure 1: Cardiovascular Cath Procedures: 42867 Coronaries and LHC (+/-LV) Moderate Sedation Procedure 1: Sedation/Anesthesia: 85960 Mod Sedation by the same physician;Init15 Min Child Age 5 & Up PG Care Time/CCT Total # of Minutes Spent Total Time Spent with Patient: Total time spent is greater than 50% in coordination of care (as documented) at patient's floor/unit and/or counseling patient:
[2022-12-10] MEDS ORDERED: SODIUM CHLORIDE 0.9% 1000ML 1,000 ML IV SCH (12:00)
--- NOTE | 2022-12-10 12:20 | Pharmacy Report ---
Pharmacy Glycemic Sign Off Nt - Date of Service December 10, 2022 - Assessment & Plan ASSESSMENT: * Pharmacy was consulted by Dr Armenta on 12/04/22 for glycemic control and to write orders per [facility] inpatient glycemic control protocol. * Major changes made by pharmacy to antidiabetic regimen include: * titration of basal/bolus insulin while steroids tapered * Patient has been receiving/requiring 0-12 units of insulin per day for adequate glycemic control * BSGs ranging 73-129 mg/dl * Regimen has only required minor adjustments over the past 48hrs to achieve this level of control * Do not anticipate further changes in patient status that would quickly deteriorate glycemic control (i.e. patient to be NPO for upcoming procedure, steroids tapering, starting tube feedings, etc). * Please see recommendations for outpatient antidiabetic regimen below. PLAN FOR INPATIENT GLYCEMIC CONTROL: No changes needed to current regimen. * Continue holding basal insulin * Continue NovoLog per scale ACHS/Q6hrs while NPO * Goal range = 110-140 mg/dl * CF = 30 mg/dl/unit * CR = 1 unit for ever 12 g CHO consumed * Pharmacy is signing off of glycemic consult and will no longer be making adjustments to inpatient regimen. Please feel free to re-consult if needed. Thank you.
[2022-12-10] MEDS: BUPRENORPHINE/NALOXONE 8/2 MG TAB SL SCH (12:49)
[2022-12-10 16:45] LABS: BUN Creatinine Ratio 9.9 (10-20); Calcium 8.7 mg/dl (8.6-10.3); Creatinine Clr Calc Pharmacy 35.1 ml/min; Est GFR (African American) 33.7 ml/min; Est GFR (Non-African American) 29.1 ml/min; Potassium 5.3 mmol/L (3.5-5.1)
[2022-12-10] MEDS: traZODone HCL 50 MG TAB PO SCH (20:15)
[2022-12-10] MEDS: SODIUM CHLORIDE 0.9% 1000ML 1,000 ML IV SCH (22:18)
[2022-12-11] MEDS: SODIUM CHLORIDE 0.9% 1000ML 1,000 ML IV SCH (05:47)
[2022-12-11 07:59] LABS: BUN Creatinine Ratio 11.6 (10-20); Calcium 8.9 mg/dl (8.6-10.3); Creatinine Clr Calc Pharmacy 39.6 ml/min; Est GFR (African American) 38.7 ml/min; Est GFR (Non-African American) 33.4 ml/min; Potassium 4.2 mmol/L (3.5-5.1)
[2022-12-11 08:01] LABS: Hematocrit (blood only) 27.3 % (37.0-47.0); Hemoglobin 8.4 g/dl (12.0-16.0); Mean Corpuscular Hemoglobin 26.2 pg (25.0-34.0); Mean Corpuscular Hgb Conc 30.8 g/dL (32.0-36.0); Mean Platelet Volume 9.7 fL (9.4-12.4); Platelet Count 362 K/uL (130-400); RDW Coefficient of Variation 19.4 % (11.5-14.5); RDW Standard Deviation 59.2 fL (36.4-46.3); Red Blood Count 3.21 M/uL (4.20-5.40); White Blood Count 12.23 K/ul (4.8-10.8)
[2022-12-11] MEDS: INSULIN ASPART PER UNIT CHARGE SC SCH ×2 (08:12→11:53)
[2022-12-11] MEDS: cefUROXime axetil 500 MG TAB PO SCH (08:25)
[2022-12-11] MEDS: levETIRAcetam 500 MG TAB PO SCH (08:25)
[2022-12-11] MEDS: GABAPENTIN 300 MG CAP PO SCH (08:25)
[2022-12-11] MEDS: predniSONE 20 MG TAB PO SCH (08:26)
[2022-12-11] MEDS: CLOPIDOGREL BISULFATE 75 MG TAB PO SCH (08:26)
[2022-12-11] MEDS: ASPIRIN 81 MG CHEW PO SCH (08:26)
[2022-12-11] MEDS: ATORVASTATIN 40 MG TAB PO SCH (08:27)
[2022-12-11] MEDS: ESCITALOPRAM OXALATE 20 MG TAB PO SCH (08:27)
[2022-12-11] MEDS: AZITHROMYCIN 250 MG TAB PO SCH (08:27)
[2022-12-11] MEDS: BUPRENORPHINE/NALOXONE 8/2 MG TAB SL SCH (08:31)
[2022-12-11] MEDS: FLUTICASONE/VILANTEROL 200/25MCG 14 PUFFS/INHALER INH SCH (08:31)
[2022-12-11] MEDS: FAMOTIDINE 20 MG TAB PO PRN (10:41)
[2022-12-11] MEDS ORDERED: CALCIUM CARBONATE 500 MG CHEWABLE TAB PO ONE (11:35)
[2022-12-11] MEDS ORDERED: FLUCONAZOLE 50 MG TAB PO ONE (11:45)
[2022-12-11 13:13] LABS: Pneumocystis jirovecii PCRQual NOT DETECTED; Pneumocystis jirovecii Source SPUTUM
--- NOTE | 2022-12-11 15:42 | Discharge Summary ---
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 Patient reports that when she woke up this morning she had shortness of breath with minimal exertion. Shortness of breath progressed and she presented to the ED for further evaluation. Patient states she has been having chronic allergy symptoms and congestion for the past several weeks. She denies cough and sputum production. No fever or chills. Reports a poor appetite but denies abdominal pain, nausea, vomiting, or diarrhea. No urinary symptoms. In the ED, patient required 15L NRB to maintain saturations. She was hypotensive and place on Levophed infusion. Labs show WBC 29K, creat 2.2, lactate 4.1, HS trop 843, proBNP 228, procal 1.9. CXR suggestive of pulmonary edema and/or multifocal pneumonia. Patient was given neb treatment, IV azithromycin, IV cefepime, IV solumedrol. Principal Dx & Hospital Course #1 = Principal Diagnosis (1) Septic shock: 2/2 pneumonia, she is off pressors and now extubated. Hemodynamically stable. (2) Acute on chronic respiratory failure with hypoxia: extubated successfully on 12/07. Continues on nebulized bronchodilators as needed today, Zosyn, Azithromycin and Bactrim. Continues on prednisone 20mg daily. (3) Acute renal failure: creatinine was improving, but is now increased to 1.68. She received contrast today in her cardiac cath. Will cont to trend BMP. This may be related to ongoing Bactrim. Alternative treatment for PJP pneumonia may need to be considered, but serology is not back yet. She should be finished with treatment tomorrow. Cont for now and monitor creatinine and potassium. (4) Multifocal pneumonia: Admitted to ICU Patient presenting from home with reports of worsening shortness of breath. Initially required 15L NRB and subsequent intubation in the ER due to respiratory distress. On presentation, hypotensive requiring Levophed, tachycardic, WBC 29 K, lactic acid 4.1, creatinine 2.2 CT chest showing multifocal pneumonia, bedside echo confirmed she was not volume overloaded Cont Zosyn, azithromycin, Bactrim Day 5 with Vanc discontinued Blood cultures negative to date Status post bronchoscopy on 12/05 PJP still pending, Legionella Ag was negative. Extubated 12/07 successfully. Cont abx and steroids as noted above. (5) Elevated troponin: 2/2 demand ischemia per cardiology in setting of sepsis (6) Coronary artery disease: Initial troponin was 843 and subsequent troponins did not show any increased No reports of chest pain, EKG without acute ST changes Stat echo obtained in ED with cardiology at the bedside --no wall motion abnormalities noted, EF 60% Elevated troponin likely secondary to sepsis with strain Continue aspirin 81 mg daily and Plavix Cardiac cath per cardiology when she is improved. Creatinine is still elevated-will discuss this with the team for after the weekend. (7) Chronic diastolic CHF (congestive heart failure): chronic typically on torsemide bid, she did receive one dose of furosemide 20mg IV this admission, however, resp failure attributed mostly to infection at this point. will hold off on restarting home torsemide given recentl illness and renal failure just now resolved and because of possible plans for heart catheterization to avoid PAMELA. (8) Aortic stenosis: moderate, chronic, monitor volume status during resuscitation. Currently appears euvolemic. Cont current therapy. (9) Seizure disorder: chronic, stable. Cont AED (10) Polysubstance abuse: History of, on Suboxone which has been restarted. She also requested Trazodone 75mg qHS which was restarted after she reported insomnia last evening. DVT PROPHYLAXIS SQ heparin Full Code I spent a total [id number] coordinating, documenting, and providing care for this patient excluding time spent in the performance of separately billed services Zina Smith DO [facility] Hospitalist Discharge Exam CONSTITUTIONAL: WNWD, vitals as above, generally well-appearing, NAD EYES: normal conjunctivae, no scleral icterus, ENT: external ear and nose normal, oropharynx clear, NECK: trachea midline RESPIRATORY: CTAB, good diaphragmatic excursion, no increased respiratory effort. CARDIOVASCULAR: regular rate and rhythm, 3/6 MAXIME, no gallops or rubs, no JVD, no peripheral edema CHEST: inspection of chest was normal GASTROINTESTINAL: soft, nontender, ND, no guarding MUSCULOSKELETAL: WNWD, moves all extremities equally SKIN: warm and dry NEUROLOGIC: no gross focal deficits. Speech intact. PSYCHIATRIC: alert and oriented. Updated Medication List Medication Instructions Recorded Confirmed Type albuterol sulfate 2.5 mg/3 mL 2.5 mg inhalation Q4 PRN 07/10/21 12/04/22 History (0.083 %) solution for nebulization WHEEZE/COUGH albuterol sulfate 90 mcg/actuation 2 puff inhalation Q4 PRN cough or 07/10/21 12/04/22 History aerosol inhaler wheezing atorvastatin 80 mg tablet 80 mg PO QAM 07/10/21 12/04/22 History buspirone 15 mg tablet 15 mg PO AMHS 07/10/21 12/04/22 History clopidogrel 75 mg tablet 75 mg PO DAILY 07/10/21 12/04/22 History cyclobenzaprine 10 mg tablet 10 mg PO BID 07/10/21 12/04/22 History escitalopram oxalate 20 mg tablet 20 mg PO QAM 07/10/21 12/04/22 History levetiracetam 500 mg tablet 500 mg PO AMHS 07/10/21 12/04/22 History lisinopril 5 mg tablet 5 mg PO QAM 07/10/21 12/04/22 History medroxyprogesterone 150 mg/mL 150 mg IM .Q3MO 07/10/21 12/04/22 History intramuscular suspension metformin 1,000 mg tablet 1,000 mg PO BID 07/10/21 12/04/22 History metoprolol succinate 25 mg 25 mg PO DAILY 07/10/21 12/04/22 History tablet,extended release 24 hr polyethylene glycol 3350 17 gram 17 g PO DAILY PRN Constipation 07/10/21 12/04/22 History oral powder packet (Miralax) potassium chloride 20 mEq 20 meq PO QAM 07/10/21 12/04/22 History tablet,extended release(part/cryst) (Klor-Con M) torsemide 20 mg tablet 20 mg PO AMHS 07/10/21 12/04/22 History trazodone 50 mg tablet 75 mg PO HS 07/10/21 12/04/22 History aspirin 81 mg tablet,delayed 81 mg PO DAILY 03/03/22 12/04/22 History release famotidine 20 mg tablet 20 mg PO BID PRN Heartburn 03/03/22 12/04/22 History fluticasone furoate 200 1 inh inhalation QAM 03/03/22 12/04/22 History mcg-vilanterol 25 mcg/dose inhalation powder (Breo Ellipta) gabapentin 300 mg capsule 300 mg PO TID 03/03/22 12/04/22 History nitroglycerin 0.4 mg sublingual 0.4 mg sublingual DAILY PRN Chest 03/03/22 12/04/22 History tablet Pain buprenorphine 8 mg-naloxone 2 mg 1 film sublingual DAILY 12/04/22 12/04/22 History sublingual film Hospital Stay Data Consultations 12/04/22 16:23 ED Decision to Admit Stat 12/04/22 18:44 Consult Cardiology Routine Consult Hairspring Studder Routine 12/10/22 07:00 Consult Cardiac Catheterization Routine Procedures Performed Operation Date: 12/10/22 09:00 Actual Procedures s Cineradiography w/Routine Exam - Anderson Hay MD p Cath, Right and Left Heart - Anderson Hay MD Diagnostic Imagining Performed 12/04/22 17:03 CT chest diagnostic wo con Stat 12/05/22 05:22 CTA head wo/w [CT angio head wo/w] Stat 12/10/22 07:52 CL Cath Imgs for PACS use only Routine Pending Results Patient Have Any Pending Studies at Discharge: Yes Discharge Instructions Given to Patient (Per Discharging Provider) Please take all medications as instructed on discharge as below. Please hold off on taking torsemide or Metformin until you followup with your primary care physician. Please follow-up with your primary care doctor at that time and date scheduled next week. Please note cardiology will call you regarding setting up the time and date of your follow-up. You were admitted and found to have a pneumonia. One of your antibiotics named Bactrim, likely because your kidney function to become slightly worse. Bactrim was stopped on the evening of 12/10 and your kidney function was improving at time of discharge. Please ensure a basic metabolic panel (nonfasting blood work) is rechecked next week by your primary care doctor. In the meantime please avoid any Motrin, ibuprofen, naproxen or other nonsteroidal anti- inflammatory drugs. You completed your course of antibiotics in the hospital. It is recommended that you undergo chest imaging in 4 to 6 weeks to ensure complete resolution of pneumonia. Your primary care doctor can order this for you. While you were admitted you underwent a cardiac catheterization on 12/10. Please ensure you follow all activity restrictions and postoperative management of your wounds, as described below. You have valvular disease that will need to be followed by a cardiac ultrasound every year to ensure no progression of disease. Please continue with dual antiplatelet therapy which includes baby aspirin and Plavix.
== END 2022-12-11 16:25 | disposition home health service (06) | DRG 871 ==
LOC: ED 15:15 → SUATTDRO 16:31 → 1E 16:31 → 2S 12-08 14:49

== ENCOUNTER 2023-04-22 11:09 | Inpatient (IN) ==
--- OUTSIDE RECORDS SUMMARY | 2023-04-22 11:16 | External Medical Summary | Summary of Care ---
Author Name Unknown Organization [facility] Address [address] [place] [address] Phone [phone] Care Team Providers Care Employment Representative Name Role Phone Irvin Iverson MD Primary Care Provider + Reason for Visit * Reason Onset Date Comments Medication Refill 04/12/2023 Encounter Details Date Type Department Care Team ([facility] Contact Info) Description 04/12/2023 Refill Neurology [facility] [address] [place] [address] Gloria Florez PA-C [address] [place] [address] Allergies Active Allergy Reactions Criticality Noted Date Comments Azithromycin Other (Please comment) 03/28/2004 cramps Covid-19 Mrna Vacc (Moderna) 07/24/2021 Severe SOB/ hospitalized. Eggs Or Egg-Derived Products 05/25/2022 Other reaction(s): vomiting Ensure 02/10/2007 Vomiting, diarrhea Mushroom Extract Complex Itching 12/17/2022 Mushrooms Novocain 02/15/2010 hives Nova Extract 05/25/2022 Other reaction(s): Hives Tramadol Seizure High 09/09/2012 documented as of this encounter (statuses as of 04/12/2023) Medications Medication Sig Dispensed Refills Start Date End Date Status Nitroglycerin 0.4 MG Sublingual Tablet Sublingual (Nitrostat) Place 1 Tab under the tongue every 5 minutes as needed for Pain, Chest. Max dose 3 tablets in 15 minutes 25 Tab 3 03/16/2020 Active glipiZIDE 10 MG Oral Tablet (Glucotrol) TAKE 1 TABLET BY MOUTH EVERY DAY TAKE 30 MINUTES BEFORE DINNER 90 Tab 3 10/09/2020 Active Buprenorphine HCl-Naloxone HCl 8-2 MG Sublingual Tablet Sublingual (Suboxone) Place 1.5 Tablets under the tongue in the morning. 0 Active Omeprazole 20 MG Oral Capsule Delayed Release Take 1 Capsule by mouth in the morning. 0 Active Polyethylene Glycol 3350 17 GM/SCOOP Oral Powder (MiraLax)Indications :Constipation, unspecified constipation type Take 17 g by mouth as needed for Constipation. Dissolve one heaping tablespoon in 8 ounces of water or juice. 507 g 5 01/18/2021 Active Albuterol Sulfate (2.5 MG/3ML) 0.083% Inhalation Nebulization Solution (Proventil)Indicatio ns:Mild intermittent asthma without complication Inhale 1 Vial via nebulizer every 4 hours as needed for Wheezing. 300 mL 1 03/21/2021 Active oxygen IN GASIndications:Noctu rnal hypoxemia Use as directed 2 L/min(Oxygen) as needed (via nasal cannula with exertion). titrate to off if SpO2 90-94%. 3 LPM via nasal cannula at bedtime and with all sleep. 1 Each 0 09/28/2021 Active Atorvastatin Calcium 80 MG Oral Tablet (Lipitor)Indications :HTN, goal below 140/80,Coronary artery disease involving [place] heart without angina pectoris, unspecified vessel or lesion type,Nonrheumatic aortic valve stenosis,Dyslipidemi a, goal LDL below 100 Take 1 Tablet by mouth in the morning. 90 Tablet 3 08/30/2022 Active Escitalopram Oxalate 10 MG Oral Tablet (Lexapro)Indications :KELLY (generalized anxiety disorder) Take 1 Tablet by mouth in the morning. 90 Tablet 3 08/30/2022 Active busPIRone HCl 15 MG Oral Tablet (Buspar) Take 1 Tablet by mouth in the morning and 1 Tablet before bedtime. 180 Tablet 3 08/30/2022 Active ProAir HFA 108 (90 Base) MCG/ACT Inhalation Aerosol Solution Inhale 2 Puffs by mouth every 4 hours as needed for Cough or Wheezing. 54 g 1 09/05/2022 Active Aspirin Low Dose 81 MG Oral Tablet Delayed Release (aspirin enteric coated)Indications:T ype 2 diabetes mellitus with hemoglobin A1c goal of less than 8.0% ([facility]) TAKE 1 TABLET BY MOUTH EVERY DAY 100 Tablet 3 09/27/2022 Active Famotidine 20 MG Oral Tablet (Pepcid) TAKE 1 TABLET BY MOUTH 2 TIMES A DAY NEEDED FOR HEARTBURN. 180 Tablet 2 09/27/2022 Active Clopidogrel Bisulfate 75 MG Oral Tablet (pLAVix)Indications: Coronary artery disease involving [place] heart without angina pectoris, unspecified vessel or lesion type,S/P coronary artery stent placement TAKE 1 TABLET BY MOUTH EVERY DAY 90 Tablet 1 12/13/2022 Active Acetaminophen ER 650 MG Oral Tablet Extended Release (Tylenol 8 Hour)Indications:Acu te nonintractable headache, unspecified headache type Take 1 Tablet by mouth every 8 hours as needed for Pain, Moderate. 30 Tablet 0 12/15/2022 Active Meclizine HCl 25 MG Oral Tablet (Antivert)Indication s:Vertigo Take 1 Tablet by mouth 3 times a day as needed for Dizziness. 90 Tablet 3 12/17/2022 Active Ferrous Sulfate 325 (65 Fe) MG Oral Tablet (Feosol)Indications: Iron deficiency anemia, unspecified iron deficiency anemia type Take 1 Tablet by mouth every other day. 45 Tablet 3 01/04/2023 Active levETIRAcetam 500 MG Oral Tablet (Keppra) TAKE ONE (1) TABLET BY MOUTH TWICE DAILY IN THE MORNING AND BEFORE BEDTIME 60 Tablet 11 03/03/2023 Active Lisinopril 5 MG Oral Tablet (Prinivil)Indication s:HTN, goal below 130/80 TAKE 1 TABLET BY MOUTH EVERY DAY IN THE MORNING 90 Tablet 3 03/04/2023 Active Torsemide 20 MG Oral Tablet (Demadex)Indications :Chronic diastolic CHF (congestive heart failure) (HCC),Coronary artery disease involving [place] coronary artery of [place] heart without angina pectoris,Nonrheumati c aortic valve stenosis,HTN, goal below 140/90 Take 1 Tablet by mouth in the morning. 90 Tablet 3 03/04/2023 Active Potassium Chloride Yvonne ER 20 MEQ Oral Tablet Extended ReleaseIndications:E sha, unspecified type TAKE 1 TABLET BY MOUTH IN THE MORNING 30 Tablet 5 03/28/2023 Active Cyclobenzaprine HCl 10 MG Oral Tablet (Flexeril)Indication s:Lumbar disc disease TAKE 1 TABLET BY MOUTH IN THE MORNING AND BEFORE BEDTIME 60 Tablet 0 04/01/2023 Active traZODone HCl 100 MG Oral Tablet (Desyrel) Take 1 Tablet by mouth at bedtime. 90 Tablet 3 04/03/2023 Active Metoprolol Succinate ER 25 MG Oral Tablet Extended Release 24 Hour (toPROL XL)Indications:HTN, goal below 130/80 TAKE 1 TABLET BY MOUTH EVERY DAY 90 Tablet 3 04/09/2023 Active Escitalopram Oxalate 20 MG Oral Tablet (Lexapro)Indications :Depression with anxiety TAKE 1 TABLET BY MOUTH EVERY DAY 90 Tablet 1 04/09/2023 Active Gabapentin 300 MG Oral Capsule (Neurontin) Take 2 tablets twice daily and 3 tab at bedtime 180 Capsule 1 04/11/2023 Active Hospital, Clinic, or Other Facility Administered Medication Ordered Dose Route Frequency Start Date End Date Status lidocaine 1 % inj 21 mgIndications:Cellulitis of arm, left,Abscess of multiple sites of upper arm 21 mg IJ Daily(AM) 09/20/2017 Active medroxyPROGESTERone acetate (DEPO-PROVERA) inj NORBERTO 150 mgIndications:Surveillance for Depo-Provera contraception 150 mg IM [id number] 09/09/2019 Active documented as of this encounter (statuses as of 04/12/2023) Active Problems Problem Noted Date Diagnosed Date Nonintractable epilepsy without status epileptic us 04/10/2023 Adrenal adenoma, right 08/10/2022 Overview: 11mm, CT scan 07/2022. Benign by imaging, needs hormonal w/u. Tricuspid valve vegetation 03/20/2022 Chronic kidney disease, stage 3a 11/06/2021 Overview: Per CKD protocol Chronic hypoxemic respiratory failure 07/24/2021 Recurrent UTI 12/06/2020 Ureteral duplication, right 12/06/2020 Moderate recurrent major depression 08/26/2020 Chronic diastolic heart failure 08/26/2020 Diabetic peripheral neuropathy 11/11/2018 Chronic hepatitis C without hepatic coma 018 Overview: 09/13 dx [facility]. Genotype 1A. Confirmed 2021. New since 2015. Hx shared needles. Coronary artery disease invo lving [place] heart without angina pectoris 12/19/2016 S/P coronary artery stent placement 12/19/2016 Nonrheumatic aortic valve stenosis 11/16/2016 History of narcotic addiction 01/20/2015 Overview: OD 01/2018 with neurontin Caution with neurontin, issues getting different scrips with different doses TERMINATED MEDICATION USAGE AGREEMENT 01/20/2015 Well adult exam 09/03/2014 Overview: NEED PAP 12/19 Cardiac cath -mod-severe CAD LAD., consider stent if angina 07/18 admitted AMS. EEG--encephalopathy, abnormal. 2019-need restart atorv 80?. 02/23/20 PCI mid right PDA with single ROJAS [facility]. EF stable 55-60%. Lung nodules inc9mm LLL. ?infection. Consider kailyn 1mo CT. 11/14 Dr Michael LEDESMA Trazodone 100mg? Suboxone Dr Max Garcia 06/17 incarcerated 01/14 admit [facility]/[place] ODvs suicide attempt. 02/13 d/c to [facility] in [place]. 09/13 ICU/intubated-fungal mbdolo-uvdkb-Cbrjcnn dubliniensis. , hand abscess dayna albicans MED USE AGREEMENT CANCELLED. Hx narcotic abuse , now in remission. 11/12 TTE-mod Aortic stenosis Tobacco use disorder 09/03/2014 Vitamin D deficiency 06/02/2014 Iron deficiency anemia 09/09/2012 Dyslipidemia 01/18/2012 HTN, goal below 130/80 12/17/2011 Lumbar disc disease 07/31/2011 Moderate persistent asthma without complication 10/20/2009 Overview: Per Provider Protocol. Per Asthma Taxonomy Using albuterol 3-4x weeks-growth scans in 3rd trimester Using nebulizer prn, last used three weeks ago Yun peak flow not doing at this time Type 2 diabetes mellitus wit h hemoglobin A1c goal of less than 8.0% 02/10/2009 Overview: lantus + metformin documented as of this encounter (statuses as of 04/12/2023) Resolved Problems Problem Noted Date Diagnosed Date Resolved Date Hydronephrosis, right 12/06/20202020 Acute on chronic diastolic c ongestive heart failure 03/03/2020 08/26/2020 Major depressive disorder, r ecurrent, unspecified 12/30/2019 12/14/2021 Uncomplicated opioid dependence 06/23/2019 03/19/2022 Coronary artery disease invo lving [place] coronary artery of [place] heart without angina pectoris 06/23/2019 12/14/2021 Encounter for monitoring Sub oxone maintenance therapy 09/24/2018 12/14/2021 Polysubstance abuse 02/26/2018 03/19/20 Overview: Fall 2017 rehab [place]-meth, etc will establish w/[facility] 02/2018 Suicide attempt by drug ingestion 02/20/2018 02/26/2018 Overview: gabapentin Seizure 09/09/2017 07/19/2020 Overview: 09/13 seizure noted. ?prior approx 5ya --placed on gabapentin Homeless 06/14/2017 11/27/2018 Tobacco abuse 04/15/2017 08/12/2017 Systolic murmur 03/04/2016 04/11/2021 Overview: 09/13 [place]-congential thickening Partial fusion aortica valve, trivial AI, no vegetation. 2012 TTE--mild-mod AR, ?bicuspid. 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/2014 senior living current use of ant icoagulant therapy 08/07/2010 12/04/2011 Overview: ICD-10 update of inactive term Anticoagulation management encounter 08/07/2010 12/04/2011 ADVANCE DIRECTIVE INFORMATION 03/02/2010 12/04/2011 Overview: No, Advance Directive brochure offered , patient declined. Cervical incompetence, antepartum 03/02/2010 04/11/2016 Enterococcus UTI 02/16/2010 12/04/2011 Other pulmonary embolism and infarction 02/15/2010 07/29/2014 Overview: On lovenox 1 ml q 12 hr Supervision of high-risk pre gnancy of young multigravida 02/13/2010 08/04/2012 Overview: H/o loss at 20-22wks due to ? Incompetent cervix in 1997-no records on file, needs cervical length check 01/11: WBC elevated at 23; platelets elevated at 464, repeat CBC at nv [facility] 02/08: Repeat ultrasound is recommended in 3 weeks for TVS to assess cervical length. FTS negative- offer MSAFP after 15w [facility]FM 03/02: Repeat ultrasound is recommended for anatomy in 5-6 weeks at your location and then q 4 weeks for growth due to CHTN, Type II DM, and Asthma. Mitral valve disorder 02/08/20102010 Backache 01/11/2010 08/04/2010 Overview: Pt follows with Dr. Mccall for chronic back pain-was taking Percocet for the first 6 weeks of . I advised no pain meds for first 12 weeks if possible. Then f/u with Dr. Mccall after 12wks if she feels she needs to continue. Percocet and Vicodin both Cat. C. INFORMATION 01/11/2010 12/04/2011 Overview: FOB with spina bifida-pt to initiate 4mg folic acid daily The nuchal translucency measured 1.2 mm, which is the 25 percentile for this fetus' crown-rump length. This is not indicative of increased risk for chromosome abnormality. Supervision of high-risk pre gnancy of young multigravida 01/11/2010 02/08/2010 Overview: H/o loss at 20-22 weeks due to ?incompetent cervix in 1997-no records on file; needs cervical length check 16-18w 01/11: WBC elevated at 23; plt elevated at 464; repeat CBC at nv Asthma with severity to be determined 10/20/2009 08/09/2011 Overview: Per Asthma Taxonomy Using albuterol 3-4x weeks-growth scans in 3rd trimester Using nebulizer prn, last used three weeks ago Yun peak flow not doing at this time ICD-10 update of inactive term Severe obesity with body mas s index (BMI) of 35.0 to 39.9 with serious comorbidity 07/25/2009 Overview: Per Obesity Taxonomy ICD-10 update of inactive diagnosis HTN, goal below 130/80 05/26/200912/19 Overview: Per HTN Taxonomy. Taking Lisinopril/HCTZ 10-12.5mg at NOB visit-switched to Labetolol 100mg BID Baseline 24hr urine protein (140mg), creat. Clearance (serum creat low, creat clearance high), CMP with hep fx panel-normal Begin twice weekly NST's, weekly LEAH/growth scans at 32wks Dyslipidemia, goal LDL below 70 04/13/2009 12/14/2021 Overview: Per Lipid Taxonomy. Taking simvastatin qd at NOB visit- cat. X-pt to stop med Tobacco use disorder 04/08/2009 013 Overview: Smoking 2ppd at NOB visit; we discussed risks of PTL and IUGR; continue to discuss tapering and cessation Continues to smoke one pack daily, advise attempt to quit Tobacco use disorder 11/04/2008 009 Esophageal reflux 12/22/2007 08/04/2010 ADJ DISORDER W/DEPRES MOOD 11/28/2005 0 08/04/2010 ADVANCE DIRECTIVE INFORMATION 09/21/2005 02/08/2010 Overview: Pt given booklet. DM type 2, not at goal 09/01/200402/10 Overview: Modified per Diabetes protocol #14. Calculus of kidney 07/12/2004 0 OBESITY, UNSPECIFIED 05/24/2003 010 Overview: Per Obesity Taxonomy EXTRINSIC ASTHMA, UNSPEC 05/21/2003 PURE HYPERCHOLESTEROLEM 09/12/200003/29 Overview: Per Lipid Taxonomy. HTN, goal below 140/90 07/25/200012/14 Overview: Per HTN Taxonomy. Carpal tunnel syndrome of left wrist 01/19/1999 04/11/2021 Dental disorder NEC 07/20/1998 02/09/20 10 Tobacco use disorder 008 documented as of this encounter (statuses as of 04/12/2023) Immunizations Name Administration Dates Next Due COVID-19 mRNA, LNP-s, No Pre serve, 2-Dose Series (Moderna) 09/16/2020 Hepatitis B, 20+ yrs 08/26/2018,10/03/19 18,09/16/2017,12/19(Deferred: Patient Refused),03/02/2016,10/18/2014 Pneumococcal Polysaccharide PPV23 (Pneumovax) 11/28/2005 Seasonal Influenza, PF, 6 M & above, IM , (FluLaval or Fluzone) 02/10/2021,01/18/2021(Deferred: Patient Refused),03/03/2020 TDAP (age 10 and older)(Boostrix) 08/28/2017 TDAP (age 11 and older)(Adacel) 02/10/2007 documented as of this encounter Social History Tobacco Use Types Packs/Day Years Used Date Smoking Tobacco: Every Day Cigarettes 2 31 Smokeless Tobacco: Never Comments:started age 10- enriqueta n to a few cigarettes a day Alcohol Use Standard Drinks/Week Comments No 0 (1 standard drink = 0.6 oz pur e alcohol) PHQ-2 Answer Date Recorded PHQ-2 Score -1 03/03/2020 Hunger Vital Sign Answer Date Recorded Within the past 12 months, y ou worried that your food would run out before you got the money to buy more. Patient refused Within the past 12 months, t he food you bought just didn't last and you didn't have money to get more. Patient refused Sex and Gender Information Value Date Recorded Sex Assigned at Female 03/03/2020 11:37 AM EST Gender Identity Female 03/03/2020 11:37 AM EST Sexual Orientation Straight 03/03/2020 11 :37 AM EST Job Start Date Occupation Industry Not on file Not on file Not on file documented as of this encounter Miscellaneous Notes * Telephone Encounter - Jinny Acevedo PHARM Tech - 04/12/2023 1:27 PM EST Pt called for a refill on gabapentin 100 mg. That script was refused to a dose increase in Gabapentin 300 mg. Pt understood Thank you, Jinny Acevedo, [facility] [employer]oth Boil Off Machine Operator II [facility]) 04/12/2023,1:28 PM documented in this encounter Plan of Treatment Upcoming Encounters Date Type Department Care Team (Late st Contact Info) Description 05/20/2023 2:00 PM EST Office Visit Gynecology/Obstetrics [facility] [address] [place] [phone] BackerHailey CRNP [address] [place] [address] 11/11/2023 11:00 AM EDT Office Visit Family Practice [facility] [address] [place] [phone] Irvin Iverson MD [address] [place] [address] Health Maintenance Due Date Last Done Comments Pneumococcal Vaccine: Pediatrics (0 to 5 Years) and At-Risk Patients (6 to 64 Years) (2 - PCV) 11/28/2006 11/28/2005 Diabetic Eye Exam 11/03/2020 11/04/2019, , 01/31/2013, Additional history exists Depression Screening 03/03/2021 03/03/2020, 08/29/19 18 Diabetic Foot Exam 03/03/2021 03/03/2020, 0 09/24/2018, 09/20/2017, Additional history exists *SPIROMETRY ONCE FOR ASTHMA-ADULT 08/06/2021 DISCUSS TOBACCO CESSATION (REFER TO SMARTSET #3291) 08/04/2022 08/04/2021, 08/28/2017 COVID-19 Vaccine (2 - 24 season) 2022 09/16/2020 Influenza Vaccine (FLU shot) (#1) 2022 02/10/2021, 03/03/2020 Cologuard 2023 Colonoscopy 2023 Colorectal Cancer Screening 2023 Fecal Occult Blood Test 2023 HbA1c 2023 08/06/2022, 06/0 12/2020, 11/04/2019, Additional history exists Sigmoidoscopy 2023 GFR 06/19/2023 12/17/2022, 07/29, 08/06/2022, Additional history exists PAP SMEAR-ANNUAL AGES 18-100 07/26/2023 07/25/2022, 09/24/2017, 07/14/2014, Additional history exists CKD HGB USE SMARTSET 49925 08/07/202308/06, 08/06/2022, 11/03/2021, Additional history exists Mammogram 08/08/2023 08/07/2022 Albumin/Creatinine Ratio 12/18/2023 023, 10/05/2020, 05/28/2019, Additional history exists CKD PHOS USE SMARTSET 58352 12/18/202311/28, 11/20/2020, 09/06/2017 DTaP,Tdap,and Td Vaccines (3 - Td or Tdap) 08/29/2027 08/28/2017, 08/28/2017, 02/10/2007 Pap Smear Discontinued 07/25/2022, 08/28, 08/28/2017, Additional history exists GARDASIL-HPV IMMUNIZATION SERIES Aged Out No longer eligible based on patient's age to complete this topic MENINGOCOCCAL (MENACTRA/MENVEO) Aged Out No longer eligible based on patient's age to complete this topic documented as of this encounter Medical Devices Not on filedocumented as of this encounter Advance Directives Latest Code Status on File Code Status Date Activated Date Inactivated Comments Full Code 02/15/2010 3:36 AM 02/16/2010 9:42 PM Thi s order reflects the patients wishes and were consensually agreed upon. Question Answer Comments Discussion of Advance Directives occurred with: Patient Care Teams Employment Representative Relationship Specialty Start Date End Date Irvin Iverson MD [address] [place] [address] PCP - General Family Medicine 04/02/22 documented as of this encounter
--- OUTSIDE RECORDS SUMMARY | 2023-04-22 11:16 | External Medical Summary | Summary of Care ---
Author Name Unknown Organization [facility] Address [address] [place] [address] Phone [phone] Care Team Providers Care Manager Of Merchandising Name Role Phone Irvin Iverson MD Primary Care Provider + Reason for Visit * Reason Onset Date Comments Medication Question 04/10/2023 Encounter Details Date Type Department Care Team ([facility] Contact Info) Description 04/10/2023 Telephone Neurology [facility] [address] [place] [address] Gloria Florez PA-C [address] [place] [address] Medication Question Allergies Active Allergy Reactions Criticality Noted Date Comments Azithromycin Other (Please comment) 03/28/2004 cramps Covid-19 Mrna Vacc (Moderna) 07/24/2021 Severe SOB/ hospitalized. Eggs Or Egg-Derived Products 05/25/2022 Other reaction(s): vomiting Ensure 02/10/2007 Vomiting, diarrhea Mushroom Extract Complex Itching 12/17/2022 Mushrooms Novocain 02/15/2010 hives [place] Extract 05/25/2022 Other reaction(s): Hives Tramadol Seizure [...] Polyethylene Glycol 3350 17 GM/SCOOP Oral Powder (MiraLax)Indication s:Constipation, unspecified constipation type Take 17 g by mouth as needed for Constipation. Dissolve one heaping tablespoon in 8 ounces of water or juice. 507 g 5 01/18/2021 Active Albuterol Sulfate (2.5 MG/3ML) 0.083% Inhalation Nebulization Solution (Proventil)Indicati ons:Mild intermittent asthma without complication Inhale 1 Vial via nebulizer every 4 hours as needed for Wheezing. 300 mL 1 03/21/2021 Active oxygen IN GASIndications:Noct urnal hypoxemia Use as directed 2 L/min(Oxygen) as needed (via nasal cannula with exertion). titrate to off if SpO2 90-94%. 3 LPM via nasal cannula at bedtime and with all sleep. 1 Each 0 09/28/2021 Active Atorvastatin Calcium 80 MG Oral Tablet (Lipitor)Indication s:HTN, goal below 140/80,Coronary artery disease involving timbi-sha shoshone heart without angina pectoris, unspecified vessel or lesion type,Nonrheumatic aortic valve stenosis,Dyslipidem ia, goal LDL below 100 Take 1 Tablet by mouth in the morning. 90 Tablet 3 08/30/2022 Active Escitalopram Oxalate 10 MG Oral Tablet (Lexapro)Indication s:KELLY (generalized anxiety disorder) Take 1 Tablet by [...] MG Oral Tablet Delayed Release (aspirin enteric coated)Indications: Type 2 diabetes mellitus with hemoglobin A1c goal of less than 8.0% (HCC) TAKE 1 TABLET BY MOUTH EVERY DAY 100 Tablet 3 09/27/2022 Active Famotidine 20 MG Oral Tablet (Pepcid) TAKE 1 TABLET BY MOUTH 2 TIMES A DAY NEEDED FOR HEARTBURN. 180 Tablet 2 09/27/2022 Active Clopidogrel Bisulfate 75 MG Oral Tablet (pLAVix)Indications :Coronary artery disease involving timbi-sha shoshone heart without angina pectoris, unspecified vessel or lesion type,S/P coronary artery stent placement TAKE 1 TABLET BY MOUTH EVERY DAY 90 Tablet 1 12/13/2022 Active Acetaminophen ER 650 MG Oral Tablet Extended Release (Tylenol 8 Hour)Indications:Ac [place] nonintractable headache, unspecified headache type Take 1 Tablet by mouth every 8 hours as needed for Pain, Moderate. 30 Tablet 0 12/15/2022 Active Meclizine HCl 25 MG Oral Tablet (Antivert)Indicatio ns:Vertigo Take 1 Tablet by mouth 3 times a day as needed for Dizziness. 90 Tablet 3 12/17/2022 Active Ferrous Sulfate 325 (65 Fe) MG Oral Tablet (Feosol)Indications :Iron deficiency anemia, unspecified iron deficiency anemia type Take 1 Tablet by mouth every other day. 45 Tablet 3 01/04/2023 Active levETIRAcetam 500 MG Oral Tablet (Keppra) TAKE ONE (1) TABLET BY MOUTH TWICE DAILY IN THE MORNING AND BEFORE BEDTIME 60 Tablet 11 03/03/2023 Active Lisinopril 5 MG Oral Tablet (Prinivil)Indicatio ns:HTN, goal below 130/80 TAKE 1 TABLET BY MOUTH EVERY DAY IN THE MORNING 90 Tablet 3 03/04/2023 Active Torsemide 20 MG Oral Tablet (Demadex)Indication s:Chronic diastolic CHF (congestive heart failure) (HCC),Coronary artery disease involving tim[place] shoshone coronary artery of timbi-sha shoshone heart without angina pectoris,Nonrheumat ic aortic valve stenosis,HTN, goal below 140/90 Take 1 Tablet by mouth in the morning. 90 Tablet 3 03/04/2023 Active Potassium Chloride Yvonne ER 20 MEQ Oral Tablet Extended ReleaseIndications: Edema, unspecified type TAKE 1 TABLET BY MOUTH IN THE MORNING 30 Tablet 5 03/28/2023 Active Cyclobenzaprine HCl 10 MG Oral Tablet (Flexeril)Indicatio ns:Lumbar disc disease TAKE 1 TABLET BY MOUTH [...] Active Escitalopram Oxalate 20 MG Oral Tablet (Lexapro)Indication s:Depression with anxiety TAKE 1 TABLET BY MOUTH EVERY DAY 90 Tablet 1 04/09/2023 Active Gabapentin 300 MG Oral Capsule (Neurontin) Take 2 tablets twice daily and 3 tab at bedtime 180 Capsule 1 04/11/2023 Active Gabapentin 300 MG Oral Capsule (Neurontin) Take 2 tablets three times daily 180 Capsule 1 03/19/2023 3 Discontinu ed(Refill) Hospital, Clinic, or Other Facility Administered Medication Ordered Dose Route Frequency Start Date End Date Status lidocaine 1 % inj 21 mgIndications:Cellulitis of arm, left,Abscess of multiple sites of upper arm 21 mg IJ Daily(AM) 09/20/2017 Active medroxyPROGESTERone acetate (DEPO-PROVERA) inj NORBERTO 150 mgIndications:Surveillance for Depo-Provera contraception 150 mg IM [id number] 09/09/2019 Active documented as of this encounter [...] without hepatic coma 018 Overview: 09/13 dx [facility]. Genotype 1A. Confirmed 2021. New since 2015. Hx shared needles. Coronary artery disease invo lving tim[place]sha shoshone heart without angina pectoris 12/19/2016 S/P coronary [...] PCI mid right PDA with single ROJAS [facility]. EF stable 55-60%. Lung nodules inc9mm [place]. ?infection. Consider kailyn 1mo CT. 11/14 Dr Michael LEDESMA Trazodone 100mg? Suboxone Dr Max Garcia 06/17 incarcerated 01/14 admit [facility]/[place] ODvs suicide attempt. 02/13 [facility] [place] 09/13 ICU/intubated-fungal [id number]-Zxhvpym dubliniensis. , hand abscess dayna albicans MED [...] 06/23/2019 03/19/2022 Coronary artery disease invo lving [place] shosh[place] coronary artery of timbi-sha shoshone heart without angina pectoris 06/23/2019 12/14/2021 Encounter for monitoring Sub oxone maintenance therapy 09/24/2018 12/14/2021 Polysubstance abuse 02/26/2018 03/19/20 22 Overview: Fall 2017 rehab [place]-meth, etc will establish w/[facility] 02/2018 Suicide attempt by drug ingestion 02/20/2018 02/26/2018 Overview: gabapentin Seizure 09/09/2017 07/19/2020 Overview: 09/13 seizure noted. ?prior approx 5ya --placed on gabapentin Homeless 06/14/2017 11/27/2018 Tobacco abuse 04/15/2017 08/12/2017 Systolic murmur 03/04/2016 04/11/2021 Overview: 09/13 [facility]-cong[facility] thickening Partial fusion aortica valve, trivial AI, no vegetation. 2012 TTE--mild-mod AR, ?bicuspid. 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/2014 [facility] current use of ant icoagulant therapy 08/07/2010 [...] platelets elevated at 464, repeat CBC at [facility] 02/08: Repeat ultrasound is recommended in 3 [...] plt elevated at 464; repeat CBC at co Asthma with severity to be determined 10/20/2009 [...] encounter Miscellaneous Notes * Telephone Encounter - Valeria Ji, MED ASSIST - 04/12/2023 2:20 PM EST Spoke to pharmacy. They received the new rx. Pt needs to use what she has left of the 300 mg tabs (previous rx) and can sampler pickup prescription on Apr 23. Made pt aware and they expressed understanding. * Telephone Encounter - Bonnie Hernandez OSA - 04/12/2023 12:07 PM EST Pt calling stating that the pharmacy would need a new prescription if Gloria Florez would like the pt to continue taking the extra 100 mg of the gabapentin Plz contact the pt and advise [phone] Thank you * Telephone Encounter - Valeria Ji MED ASSIST - 04/12/2023 8:45 AM EST Made pt aware of Gabapentin instructions and they expressed understanding. * Telephone Encounter - Mike Palmer, charger - 04/11/2023 3:59 PM EST Pt requesting a call back from DR office directly. PT has been waiting for directions from and has not received ay. Please call pt at [phone]. Thank You, Mike Palmer [facility] Director Of Nurses Registry II Centralized Clinical Pharmacy Services (Formerly Telepharmacy) 04/11/2023, 4:00 PM * Addendum Note - Gloria Florez PA-C - 04/11/2023 3:54 PM ESTAddended by: GLORIA FLOREZ on: 04/11/2023 03:54 PM Modules accepted: Orders * Telephone Encounter - Ifeoma Dinero charger - 04/11/2023 1:38 PM EST Pt calling to check the status of gabapentin increase. Thank you, Ifeoma Dinero [facility] Horizontal Resaw Operator II Centralized Clinical Pharmacy Services ([facility]PS) (Formerly Telepharmacy) 04/11/2023, 1:38 PM * Addendum Note - Jennifer Acevedo PHARM Tech - 04/11/2023 10:25 AM ESTAddended by: JENNIFER ACEVEDO on: 04/11/2023 10:25 AM Modules accepted: Orders * Telephone Encounter - Jennifer Acevedo charger - 04/11/2023 10:18 AM EST Pt stated that she is already taking 2 300 mg three times daily for 5-6 months Please advise pt Thank you, Jennifer Acevedo [facility] Horizontal Resaw Operator II Centralized Clinical Pharmacy Services([facility]PS)(Formerly Telepharmacy) 04/11/2023,10:20 AM * Telephone Encounter - Hermelinda Roper OSA - 04/10/2023 4:27 PM EST Pt agreeable to 300mg at one of the dosing times. Reg pain-nothing is worst in AM or PM its all the same unless she is sleeping it gets a little better. She stated she take 600mg in am and PM Ty * Telephone Encounter - Maricruz Yadav CPhT - 04/10/2023 4:16 PM EST Pt calling regarding dose change for specialty med transfer Pt to [facility]. Thank you, Maricruz Yadav CPhT Director Of Nurses Registry II Centralized Clinical Pharmacy Services ([facility]PS) (Formerly Telepharmacy) 04/10/2023,4:16 PM * Telephone Encounter - Valeria Ji MED ASSIST - 04/10/2023 2:32 PM EST ----- Message from Gloria Florez PA-C sent at 04/10/2023 12:17 PM EST ----- Regarding: FW: gabapentin Please call patient and see when her sciatic pain is bothering her the most. We can increase by 300mg at one of the dosing times to start with. We can get up to 600 mg TID if she tolerates but wouldlike to do just the 300 mg at bedtime or at time she is having the most pain. Thank you, KK ----- Message ----- From: Irvin Iverson MD Sent: 04/10/2023 11:47 AM EST To: Gloria Florez PA-C Subject: gabapentin Hi Gloria, I hope your week is going well. I saw Ms. Gonzalez today--c/o inc b/l sciatica, she is wondering about possible gabapentin increase. I asked her to f/u with you for this as you are prescribing. I ordered new xrays, likely will need newMRI as well, but will get xray first. Thank you, Irvin documented in this encounter Plan of Treatment Upcoming Encounters Date Type Department Care Team (Late st Contact Info) Description 05/20/2023 2:00 PM EST Office Visit Gynecology/Obstetrics [facility] [address] [address] BackerHailey CRNP [address] [place] [address] 11/11/2023 11:00 AM EDT Office Visit Family Practice [facility] [address] [place] [address] Irvin Iverson MD [address] [place] [address] Health Maintenance Due Date Last Done Comments [...] SMARTSET #3291) 08/04/2022 08/04/2021, 08/28/2017 COVID-19 Vaccine ( - 2022- season) 2022 09/16/2020 Influenza Vaccine (FLU shot) (#1) 2022 02/10/2021, 03/03/2020 Cologuard 2023 Colonoscopy 2023 Colorectal Cancer Screening 2023 Fecal Occult Blood Test 2023 HbA1c 2023 08/06/2022, 06/0 12/2020, 11/04/2019, Additional history exists Sigmoidoscopy 2023 GFR 06/19/2023 12/17/2022, 07/29, 08/06/2022, Additional history exists PAP SMEAR-ANNUAL AGES 18-100 07/26/2023 07/25/2022, 09/24/2017, 07/14/2014, Additional history exists CKD HGB USE SMARTSET 75113 08/07/202308/06, 08/06/2022, 11/03/2021, Additional history exists Mammogram 08/08/2023 08/07/2022 Albumin/Creatinine Ratio 12/18/2023 023, 10/05/2020, 05/28/2019, Additional history exists CKD PHOS USE SMARTSET 50843 12/18/202311/28, 11/20/2020, 09/06/2017 DTaP,Tdap,and Td Vaccines (3 [...] Advance Directives occurred with: Patient Care Teams Manager Of Merchandising Relationship Specialty Start Date End Date Irvin Iverson MD [address] [address] PCP - General Family Medicine 04/02/22 documented as of this encounter
--- OUTSIDE RECORDS SUMMARY | 2023-04-22 11:16 | External Medical Summary | Summary of Care ---
Author Name Unknown Organization [facility] Address [address] [place] [address] Phone [phone] Care Team Providers Care Forge Shop Supervisor Name Role Phone Irvin Iverson MD Primary Care Provider + Reason for Visit * Reason Onset Date Comments Medication Question 04/10/2023 Encounter Details Date Type Department Care Team ([facility] Contact Info) Description 04/10/2023 Telephone Neurology [facility] [address] [place] [address] Gloria Florez PA-C [address] [place] [address] Medication Question Allergies Active Allergy Reactions Criticality Noted Date Comments Azithromycin Other (Please comment) 03/28/2004 cramps Covid-19 Mrna Vacc (Moderna) 07/24/2021 Severe SOB/ hospitalized. Eggs Or Egg-Derived Products 05/25/2022 Other reaction(s): vomiting Ensure 02/10/2007 Vomiting, diarrhea Mushroom Extract Complex Itching 12/17/2022 Mushrooms Novocain 02/15/2010 hives [place] Extract 05/25/2022 Other reaction(s): Hives Tramadol Seizure [...] s:HTN, goal below 140/80,Coronary artery disease involving menominee heart without angina pectoris, unspecified vessel or [...] Oral Tablet (pLAVix)Indications :Coronary artery disease involving menominee heart without angina pectoris, unspecified vessel or lesion type,S/P coronary artery stent placement TAKE 1 TABLET BY MOUTH EVERY DAY 90 Tablet 1 12/13/2022 Active Acetaminophen ER 650 MG Oral Tablet Extended Release (Tylenol 8 Hour)Indications:Ac [place] nonintractable headache, unspecified headache type Take 1 [...] (congestive heart failure) (HCC),Coronary artery disease involving menominee coronary artery of menominee heart without angina pectoris,Nonrheumat ic aortic valve [...] mgIndications:Surveillance for Depo-Provera contraception 150 mg IM [id number] 09/09/2019 Active documented as of this encounter [...] without hepatic coma 018 Overview: 09/13 dx [facility]. Genotype 1A. Confirmed 2021. New since 2015. Hx shared needles. Coronary artery disease invo lving menominee heart without angina pectoris 12/19/2016 S/P coronary [...] PCI mid right PDA with single ROJAS [facility]. EF stable 55-60%. Lung nodules inc9mm LLL. ?infection. Consider kailyn 1mo CT. 11/14 Dr Michael LEDESMA Trazodone 100mg? Suboxone Dr Max Garcia 06/17 incarcerated 01/14 admit [facility]/[place] ODvs suicide attempt. 02/13 [facility] [place]. 09/13 ICU/intubated-fungal [id number]-zhrod-Gpskfab dubliniensis. , hand abscess dayna albicans MED [...] 06/23/2019 03/19/2022 Coronary artery disease invo lving menominee coronary artery of menominee heart without angina pectoris 06/23/2019 12/14/2021 Encounter for monitoring Sub oxone maintenance therapy 09/24/2018 12/14/2021 Polysubstance abuse 02/26/2018 03/19/20 22 Overview: Fall 2017 rehab [place]-meth, etc will establish w/[facility] 02/2018 Suicide attempt [...] Sciatica 03/11/2013 04/11/2021 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 03/31/201211/2014 intermediate current use of ant icoagulant therapy 08/07/2010 [...] platelets elevated at 464, repeat CBC at [facility] 02/08: Repeat ultrasound is recommended in [...] plt elevated at 464; repeat CBC at al Asthma with severity to be determined 10/20/2009 [...] encounter Miscellaneous Notes * Telephone Encounter - Bonnie Hernandez OSA - 04/12/2023 12:07 PM EST Pt calling stating that the pharmacy would need a new prescription if Gloria Florez would like the pt to continue taking the extra 100 mg of the gabapentin Plz contact the pt and advise [phone] Thank you * Telephone Encounter - Valeria Ji MED ASSIST - 04/12/2023 8:45 AM EST Made pt aware of Gabapentin instructions and they expressed understanding. * Telephone Encounter - Mike Palmer production control analyst - 04/11/2023 3:59 PM EST Pt requesting a call back from DR office directly. PT has been waiting for directions from and has not received ay. Please call pt at [phone]. Thank You, Mike Palmer [facility] Roll Plugger II Centralized Clinical Pharmacy Services (Formerly Telepharmacy) 04/11/2023, 4:00 PM * Addendum Note - Gloria Florez PA-C - 04/11/2023 3:54 PM ESTAddended by: GLORIA FLOREZ on: 04/11/2023 03:54 PM Modules accepted: Orders * Telephone Encounter - Ifeoma Dinero production control analyst - 04/11/2023 1:38 PM EST Pt calling to check the status of gabapentin increase. Thank you, Ifeoma Dinero [facility] Pattern Marker II Centralized Clinical Pharmacy Services (CCPS) (Formerly Telepharmacy) 04/11/2023, 1:38 PM * Addendum Note - Jennifer Acevedo PHARM Tech - 04/11/2023 10:25 AM ESTAddended by: JENNIFER ACEVEDO on: 04/11/2023 10:25 AM Modules accepted: Orders * Telephone Encounter - Jennifer Acevedo PHARM Tech - 04/11/2023 10:18 AM EST Pt stated that she is already taking 2 300 mg three times daily for 5-6 months Please advise pt Thank you, Jennifer Acevedo [facility] Pattern Marker II Centralized Clinical Pharmacy Services(CCPS)(Formerly Telepharmacy) 04/11/2023,10:20 [...] change for specialty med transfer Pt to [facility]. Thank you, Maricruz Yadav CPhT Roll Plugger II Centralized Clinical Pharmacy Services (CCPS) (Formerly [...] 05/20/2023 2:00 PM EST Office Visit Gynecology/Obstetrics [facility] [address] [address] [place], JOSETTE Castillo [address] [address] 11/11/2023 11:00 AM EDT Office Visit Family Practice [facility] [address] [address] Irvin Iverson MD [address] [address] Health Maintenance Due Date Last Done Comments [...] SMARTSET #3291) 08/04/2022 08/04/2021, 08/28/2017 COVID-19 Vaccine (2022-24 season) 2022 09/16/2020 Influenza Vaccine (FLU shot) (#1) 2022 02/10/2021, 03/03/2020 Cologuard 2023 Colonoscopy 2023 Colorectal Cancer Screening 2023 Fecal Occult Blood Test 2023 HbA1c 2023 08/06/2022, 06/0 12/2020, 11/04/2019, Additional history exists Sigmoidoscopy 2023 GFR 06/19/2023 12/17/2022, 07/29, 08/06/2022, Additional history exists PAP SMEAR-ANNUAL AGES 18-100 07/26/2023 07/25/2022, 09/24/2017, 07/14/2014, Additional history exists CKD HGB USE SMARTSET 78373 08/07/202308/06, 08/06/2022, 11/03/2021, Additional history exists Mammogram 08/08/2023 08/07/2022 Albumin/Creatinine Ratio 12/18/2023 023, 10/05/2020, 05/28/2019, Additional history exists CKD PHOS USE SMARTSET 06735 12/18/202311/28, 11/20/2020, 09/06/2017 DTaP,Tdap,and Td Vaccines (3 [...] Advance Directives occurred with: Patient Care Teams Forge Shop Supervisor Relationship Specialty Start Date End Date Irvin Iverson MD [address] [address] PCP - General Family Medicine 04/02/22 documented as of this encounter
--- OUTSIDE RECORDS SUMMARY | 2023-04-22 11:16 | External Medical Summary | Summary of Care ---
Author Name Unknown Organization [facility] Address [address] [place] [address] Phone [phone] Care Team Providers Care Managed Care Provider Name Role Phone Irvin Iverson MD Primary Care Provider + Reason for Visit * Reason Onset Date Comments Medication Question 04/10/2023 Encounter Details Date Type Department Care Team ([facility] Contact Info) Description 04/10/2023 Telephone Neurology [facility] [address] [place] [address] Gloria Florez PA-C [address] [place] [address] Medication Question Allergies Active Allergy Reactions Criticality Noted Date Comments Azithromycin Other (Please comment) 03/28/2004 cramps Covid-19 Mrna Vacc (Moderna) 07/24/2021 Severe SOB/ hospitalized. Eggs Or Egg-Derived Products 05/25/2022 Other reaction(s): vomiting Ensure 02/10/2007 Vomiting, diarrhea Mushroom Extract Complex Itching 12/17/2022 Mushrooms Novocain 02/15/2010 hives [place] Extract 05/25/2022 Other reaction(s): Hives Tramadol Seizure [...] s:HTN, goal below 140/80,Coronary artery disease involving ho-chunk heart without angina pectoris, unspecified vessel or [...] Oral Tablet (pLAVix)Indications :Coronary artery disease involving ho-chunk heart without angina pectoris, unspecified vessel or lesion type,S/P coronary artery stent placement TAKE 1 TABLET BY MOUTH EVERY DAY 90 Tablet 1 12/13/2022 Active Acetaminophen ER 650 MG Oral Tablet Extended Release (Tylenol 8 Hour)Indications:Ac newtok nonintractable headache, unspecified headache type Take 1 [...] (congestive heart failure) (HCC),Coronary artery disease involving ho-chunk coronary artery of ho-chunk heart without angina pectoris,Nonrheumat ic aortic valve [...] mgIndications:Surveillance for Depo-Provera contraception 150 mg IM [id number] 09/09/2019 Active documented as of this encounter [...] without hepatic coma 018 Overview: 09/13 dx [facility]. Genotype 1A. Confirmed 2021. New since 2015. Hx shared needles. Coronary artery disease invo lving ho-chunk heart without angina pectoris 12/19/2016 S/P coronary [...] PCI mid right PDA with single ROJAS [facility]. EF stable 55-60%. Lung nodules inc9mm LLL. ?infection. Consider kailyn 1mo CT. 11/14 Dr Michael LEDESMA Trazodone 100mg? Suboxone Dr Max Garcia 06/17 incarcerated 01/14 admit [facility]/Ashkan ODvs suicide attempt. 02[facility] [place] 09/13 ICU/intubated-fungal grgaex-fxvnj-Grfftfc dubliniensis. , hand abscess dayna albicans MED [...] 06/23/2019 03/19/2022 Coronary artery disease invo lving ho-chunk coronary artery of ho-chunk heart without angina pectoris 06/23/2019 12/14/2021 Encounter for monitoring Sub oxone maintenance therapy 09/24/2018 12/14/2021 Polysubstance abuse 02/26/2018 03/19/20 22 Overview: Fall 2017 rehab [place]-meth, etc will establish w/[facility] 02/2018 Suicide attempt [...] Sciatica 03/11/2013 04/11/2021 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 03/31/201211/2014 assisted current use of ant icoagulant therapy 08/07/2010 [...] platelets elevated at 464, repeat CBC at [facility] 02/08: Repeat ultrasound is recommended in [...] plt elevated at 464; [facility] with severity to be determined 10/20/2009 [...] gabapentin Plz contact the pt and advise [phone] Thank you * Telephone Encounter - Valeria Ji MED ASSIST - 04/12/2023 8:45 AM EST Made pt aware of Gabapentin instructions and they expressed understanding. * Telephone Encounter - Mike Palmer fine chemicals operator - 04/11/2023 3:59 PM EST Pt requesting a call back from DR office directly. PT has been waiting for directions from and has not received ay. Please call pt at [phone]. Thank You, Mike Palmer [facility] Can Tender II Centralized Clinical Pharmacy Services (Formerly Telepharmacy) 04/11/2023, 4:00 PM * Addendum Note - Gloria Florez PA-C - 04/11/2023 3:54 PM ESTAddended by: GLORIA FLOREZ on: 04/11/2023 03:54 PM Modules accepted: Orders * Telephone Encounter - Ifeoma Dinero fine chemicals operator - 04/11/2023 1:38 PM EST Pt calling to check the status of gabapentin increase. Thank you, Ifeoma Dinero [facility] Efficiency Expert II [facility] ([facility]) (Formerly [...] Please advise pt Thank you, Jennifer Acevedo [facility] Efficiency Expert II [facility])(Formerly Telepharmacy) 04/11/2023,10:20 [...] psychiatric center. Thank you, Maricruz Yadav CPhT Can Tender II [facility] ([facility]) (Formerly [...] 05/20/2023 2:00 PM EST Office Visit Gynecology/Obstetrics [facility] [address] [address] [place], JOSETTE Castillo [address] [place] [address] 11/11/2023 11:00 AM EDT Office Visit Family Practice [facility] [address] [address] Irvin Iverson MD [address] [place] [address] Health Maintenance Due Date Last Done Comments [...] Additional history exists CKD HGB USE SMARTSET 43589 08/07/202308/06, 08/06/2022, 11/03/2021, Additional history exists Mammogram 08/08/2023 08/07/2022 Albumin/Creatinine Ratio 12/18/2023 023, 10/05/2020, 05/28/2019, Additional history exists CKD PHOS USE SMARTSET 41766 12/18/202311/28, 11/20/2020, 09/06/2017 DTaP,Tdap,and Td Vaccines (3 [...] Advance Directives occurred with: Patient Care Teams Managed Care Provider Relationship Specialty Start Date End Date Irvin Iverson MD [address] [place] [address] PCP - General Family Medicine 04/02/22 documented as of this encounter
--- OUTSIDE RECORDS SUMMARY | 2023-04-22 11:16 | External Medical Summary | Summary of Care ---
Author Name Unknown Organization [facility] Address [address] [place] [place] [address] Phone [phone] Care Team Providers Care Vendor Relationship Manager Name Role Phone Irvin Iverson MD Primary Care Provider + Reason for Visit * Reason Comments eRx-Medication Refill Encounter Details Date Type Department Care Team ([facility] Contact Info) Description 04/12/2023 Refill Neurology [facility] Roberta Hedrick [address] [place] [address] Gloria Florez PA-C [address] [place] [address] Allergies Active Allergy Reactions Criticality Noted Date Comments Azithromycin Other (Please comment) 03/28/2004 cramps Covid-19 Mrna Vacc (Moderna) 07/24/2021 Severe SOB/ hospitalized. Eggs Or Egg-Derived Products 05/25/2022 Other reaction(s): vomiting Ensure 02/10/2007 Vomiting, diarrhea Mushroom Extract Complex Itching 12/17/2022 Mushrooms Novocain 02/15/2010 hives [place] Extract 05/25/2022 Other reaction(s): Hives Tramadol Seizure [...] :HTN, goal below 140/80,Coronary artery disease involving [place] heart without angina pectoris, unspecified vessel or [...] hemoglobin A1c goal of less than 8.0% ([facility]) TAKE 1 TABLET BY MOUTH EVERY DAY 100 Tablet 3 09/27/2022 Active Famotidine 20 MG Oral Tablet (Pepcid) TAKE 1 TABLET BY MOUTH 2 TIMES A DAY NEEDED FOR HEARTBURN. 180 Tablet 2 09/27/2022 Active Clopidogrel Bisulfate 75 MG Oral Tablet (pLAVix)Indications: Coronary artery disease involving [place]chester heart without angina pectoris, unspecified vessel or [...] (congestive heart failure) (HCC),Coronary artery disease involving manchester coronary artery of manchester heart without angina pectoris,Nonrheumati c aortic valve [...] mgIndications:Surveillance for Depo-Provera contraception 150 mg IM [id number] 09/09/2019 Active documented as of this encounter [...] without hepatic coma 018 Overview: 09/13 dx [facility]. Genotype 1A. Confirmed 2021. New since 2015. Hx shared needles. Coronary artery disease invo lving [place] heart without angina pectoris 12/19/2016 S/P coronary [...] PCI mid right PDA with single ROJAS [facility]. EF stable 55-60%. Lung nodules inc9mm LLL. ?infection. Consider kailyn 1mo CT. 11/14 Dr Michael LEDESMA Trazodone 100mg? Suboxone Dr Max Garcia 06/17 incarcerated 01/14 admit [facility]/Ashkan ODvs suicide attempt. 02/13 [facility] [place] 09/13 ICU/intubated-fungal ibnqqo-lygoq-Ciigqok dubliniensis. , hand abscess dayna albicans MED [...] 06/23/2019 03/19/2022 Coronary artery disease invo lving [place] coronary artery of [place]chester heart without angina pectoris 06/23/2019 12/14/2021 Encounter for monitoring Sub oxone maintenance therapy 09/24/2018 12/14/2021 Polysubstance abuse 02/26/2018 03/19/20 Overview: Fall 2017 rehab [place]-meth, etc will establish w/[facility] 02/2018 Suicide attempt by drug ingestion 02/20/2018 02/26/2018 Overview: gabapentin Seizure 09/09/2017 07/19/2020 Overview: 09/13 seizure noted. ?prior approx 5ya --placed on gabapentin Homeless 06/14/2017 11/27/2018 Tobacco abuse 04/15/2017 08/12/2017 Systolic murmur 03/04/2016 04/11/2021 Overview: 09/13 [facility]-congential thickening Partial fusion aortica valve, trivial AI, no vegetation. 2012 TTE--mild-mod AR, ?bicuspid. 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 08/07/2010 [...] elevated at 464, repeat CBC at [place] [facility] 02/08: Repeat ultrasound is recommended in 3 [...] encounter Miscellaneous Notes * Telephone Encounter - Vicki Roman [facility] - 04/12/2023 1:13 PM ESTRefused Prescriptions: Disp Refills Gabapentin 100 MG Oral Capsule (Neurontin) 90 Cap*2 Sig: TAKE 1CAPSULE BY MOUTH THREE TIMES A DAY WITH 300MGRefused By: VICKI ROMAN TReason for Refusal: Refill Not AppropriateReason for Refusal Comment: inc to 300 mg - new rx sent to pharmacy documented in this encounter Plan of Treatment Upcoming Encounters Date Type Department Care Team (Late st Contact Info) Description 05/20/2023 2:00 PM EST Office Visit Gynecology/Obstetrics [facility] [address] [address] Hailey Lee CRNP [address] [address] 11/11/2023 11:00 AM EDT Office Visit Family Practice [facility] [address] [address] Irvin Iverson MD [address] [place] [address] Health Maintenance Due Date Last Done Comments [...] 08/04/2022 08/04/2021, 08/28/2017 COVID-19 Vaccine (2 - season) 2022 09/16/2020 Influenza Vaccine (FLU shot) (#1) 2022 02/10/2021, 03/03/2020 Cologuard 2023 Colonoscopy 2023 Colorectal Cancer Screening 2023 Fecal Occult Blood Test 2023 HbA1c 2023 08/06/2022, 0612/2020, 11/04/2019, Additional history exists Sigmoidoscopy 2023 GFR 06/19/2023 12/17/2022, 07/29, 08/06/2022, Additional history exists PAP SMEAR-ANNUAL AGES 18-100 07/26/2023 07/25/2022, 09/24/2017, 07/14/2014, Additional history exists CKD HGB USE SMARTSET 81624 08/07/202308/06, 08/06/2022, 11/03/2021, Additional history exists Mammogram 08/08/2023 08/07/2022 Albumin/Creatinine Ratio 12/18/2023 023, 10/05/2020, 05/28/2019, Additional history exists CKD PHOS USE SMARTSET 36638 12/18/202311/28, 11/20/2020, 09/06/2017 DTaP,Tdap,and Td Vaccines (3 [...] Advance Directives occurred with: Patient Care Teams Vendor Relationship Manager Relationship Specialty Start Date End Date Irvin Iverson MD [address] [place] [address] PCP - General Family Medicine 04/02/22 documented as of this encounter
--- OUTSIDE RECORDS SUMMARY | 2023-04-22 11:17 | External Medical Summary | Summary of Care ---
Author Name Unknown Organization [facility] Address [address] [place] [address] Phone [phone] Care Team Providers Care Lead Application Architect Name Role Phone Irvin Iverson MD Primary Care Provider + Reason for Visit * Reason Onset Date Comments Medication Question 04/10/2023 Encounter Details Date Type Department Care Team ([facility] Contact Info) Description 04/10/2023 Telephone Neurology [facility] [address] [place] [address] Gloria Florez PA-C [address] [place] [address] Medication Question Allergies Active Allergy Reactions Criticality Noted Date Comments Azithromycin Other (Please comment) 03/28/2004 cramps Covid-19 Mrna Vacc (Moderna) 07/24/2021 Severe SOB/ hospitalized. Eggs Or Egg-Derived Products 05/25/2022 Other reaction(s): vomiting Ensure 02/10/2007 Vomiting, diarrhea Mushroom Extract Complex Itching 12/17/2022 Mushrooms Novocain 02/15/2010 hives [place] Extract 05/25/2022 Other reaction(s): Hives Tramadol Seizure High 09/09/2012 documented as of this encounter (statuses as of 04/11/2023) Medications Medication Sig Dispensed Refills Start Date [...] :HTN, goal below 140/80,Coronary artery disease involving council heart without angina pectoris, unspecified vessel or [...] hemoglobin A1c goal of less than 8.0% ([facility]) TAKE 1 TABLET BY MOUTH EVERY DAY 100 Tablet 3 09/27/2022 Active Famotidine 20 MG Oral Tablet (Pepcid) TAKE 1 TABLET BY MOUTH 2 TIMES A DAY NEEDED FOR HEARTBURN. 180 Tablet 2 09/27/2022 Active Clopidogrel Bisulfate 75 MG Oral Tablet (pLAVix)Indications: Coronary artery disease involving council heart without angina pectoris, unspecified vessel or [...] (congestive heart failure) (HCC),Coronary artery disease involving council coronary artery of council heart without angina pectoris,Nonrheumati c aortic valve stenosis,HTN, goal below 140/90 Take 1 Tablet by mouth in the morning. 90 Tablet 3 03/04/2023 Active Gabapentin 300 MG Oral Capsule (Neurontin) Take 2 tablets three times daily 180 Capsule 1 03/19/2023 Active Potassium Chloride Yvonne ER 20 MEQ [...] EVERY DAY 90 Tablet 1 04/09/2023 Active Hospital, Clinic, or Other Facility Administered Medication Ordered Dose Route Frequency Start Date End Date Status lidocaine 1 % inj 21 mgIndications:Cellulitis of arm, left,Abscess of multiple sites of upper arm 21 mg IJ Daily(AM) 09/20/2017 Active medroxyPROGESTERone acetate (DEPO-PROVERA) inj NORBERTO 150 mgIndications:Surveillance for Depo-Provera contraception 150 mg IM [id number] 09/09/2019 Active documented as of this encounter (statuses as of 04/11/2023) Active Problems Problem Noted Date Diagnosed Date [...] without hepatic coma 018 Overview: 09/13 dx [facility]. Genotype 1A. Confirmed 2021. New since 2015. Hx shared needles. Coronary artery disease invo lving council heart without angina pectoris 12/19/2016 S/P coronary [...] PCI mid right PDA with single ROJAS [facility]. EF stable 55-60%. Lung nodules inc9mm LLL. ?infection. Consider kailyn 1mo CT. 11/14 Dr Michael LEDESMA Trazodone 100mg? Suboxone Dr Max Garcia 06/17 incarcerated 01/14 admit [facility]/Ashkan ODvs suicide attempt. 02/13 [facility] [place] 09/13 ICU/intubated-fungal pufhrn-ukppo-Raiupzy dubliniensis. , hand abscess dayna albicans MED [...] as of this encounter (statuses as of 04/11/2023) Resolved Problems Problem Noted Date Diagnosed Date Resolved Date Hydronephrosis, right 12/06/20202020 Acute on chronic diastolic c ongestive heart failure 03/03/2020 08/26/2020 Major depressive disorder, r ecurrent, unspecified 12/30/2019 12/14/2021 Uncomplicated opioid dependence 06/23/2019 03/19/2022 Coronary artery disease invo lving council coronary artery of council heart without angina pectoris 06/23/2019 12/14/2021 Encounter for monitoring Sub oxone maintenance therapy 09/24/2018 12/14/2021 Polysubstance abuse 02/26/2018 03/19/20 Overview: Fall 2017 rehab [place]-meth, etc will establish w/[facility] 02/2018 Suicide attempt by drug ingestion 02/20/2018 02/26/2018 Overview: gabapentin Seizure 09/09/2017 07/19/2020 Overview: 09/13 seizure noted. ?prior approx 5ya --placed on gabapentin Homeless 06/14/2017 11/27/2018 Tobacco abuse 04/15/2017 08/12/2017 Systolic murmur 03/04/2016 04/11/2021 Overview: 09/13 [facility]-congential thickening Partial fusion aortica valve, trivial AI, no vegetation. 2012 TTE--mild-mod AR, ?bicuspid. 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 Thank you, Maricruz Yadav CPhT [facility] ([facility]) (Formerly Telepharmacy) 04/10/2023,4:16 PM * Telephone Encounter - Valeria Ji, MED ASSIST - 04/10/2023 2:32 PM EST [...] EST To: Gloria Florez PA-C Subject: gabapentin Abrahan Castro, I hope your week is going well. [...] Care Team (Late st Contact Info) Description 04/19/2023 9:30 AM EST Office Visit Cardiology, [facility] [address] [place] [address] Laina Greer CRNP [address] [place] [address] 05/20/2023 2:00 PM EST Office Visit Gynecology/Obstetrics [facility] [address] [place] [address] Hailey Lee CRNP [address] [place] [address] 11/11/2023 11:00 AM EDT Office Visit Family Practice [facility] [address] [place] [address] Irvin Iverson MD [address] [place] [address] Health Maintenance Due Date Last Done Comments [...] Additional history exists CKD HGB USE SMARTSET 99062 08/07/202308/06, 08/06/2022, 11/03/2021, Additional history exists Mammogram 08/08/2023 08/07/2022 Albumin/Creatinine Ratio 12/18/2023 023, 10/05/2020, 05/28/2019, Additional history exists CKD PHOS USE SMARTSET 34082 12/18/202311/28, 11/20/2020, 09/06/2017 DTaP,Tdap,and Td Vaccines (3 [...] Advance Directives occurred with: Patient Care Teams Lead Application Architect Relationship Specialty Start Date End Date Irvin Iverson MD [address] [address] PCP - General Family Medicine 04/02/22 documented as of this encounter
--- OUTSIDE RECORDS SUMMARY | 2023-04-22 11:17 | External Medical Summary | Summary of Care ---
Author Name Unknown Organization [facility] Address [address] [place] [address] Phone [phone] Care Team Providers Care Disability Benefits Specialist Name Role Phone Irvin Iverson MD Primary Care Provider + Reason for Visit * Reason Comments Return Visit 6 month follow up-re ports increased pain in back and legs. Unable to walk far without needed to stop. Reports nausea over the last week. Feels she doesn't have much of an appetite. Encounter Details Date Type Department Care Team ([facility] Contact Info) Description 04/10/2023 11:00 AM EST Office Visit Family Practice [facility] [address] [place] [address] Irvin Iverson MD [address] [place] [address] Bilateral sciatica*; Iron deficiency anemia, unspecified iron deficiency anemia type; Coronary artery disease involving [place] heart without angina pectoris, unspecified vessel or lesion type; Chronic kidney disease, stage 3a ([facility]); Anemia in stage 3a chronic kidney disease ; Type 2 diabetes mellitus with hemoglobin A1c goal of less than 8.0% ([facility]); Moderate recurrent major depression ([facility]); Nonintractable epilepsy without status epilepticus, unspecified epilepsy type ([facility]) Allergies Active Allergy Reactions Criticality Noted Date Comments Azithromycin Other (Please comment) 03/28/2004 cramps Covid-19 Mrna Vacc (Moderna) 07/24/2021 Severe SOB/ hospitalized. Eggs Or Egg-Derived Products 05/25/2022 Other reaction(s): vomiting Ensure 02/10/2007 Vomiting, diarrhea Mushroom Extract Complex Itching 12/17/2022 Mushrooms Novocain 02/15/2010 hives [place] Extract 05/25/2022 Other reaction(s): Hives Tramadol Seizure High 09/09/2012 documented as of this encounter (statuses as of 04/10/2023) Medications Medication Sig Dispensed Refills Start Date End Date Status Nitroglycerin 0.4 MG Sublingual Tablet Sublingual (Nitrostat) Place 1 Tab under the tongue every 5 minutes as needed for Pain, Chest. Max dose 3 tablets in 15 minutes 25 Tab 3 0 Active glipiZIDE 10 MG Oral Tablet (Glucotrol) TAKE 1 TABLET BY MOUTH EVERY DAY TAKE 30 MINUTES BEFORE DINNER 90 Tab 3 1 Active Buprenorphine HCl-Naloxone HCl 8-2 MG Sublingual Tablet Sublingual (Suboxone) Place 1.5 Tablets under the tongue in the morning. 0 Active Omeprazole 20 MG Oral Capsule Delayed Release Take 1 Capsule by mouth in the morning. 0 Active Polyethylene Glycol 3350 17 GM/SCOOP Oral Powder (MiraLax)Indicatio ns:Constipation, unspecified constipation type Take 17 g by mouth as needed for Constipation. Dissolve one heaping tablespoon in 8 ounces of water or juice. 507 g 5 1 Active Albuterol Sulfate (2.5 MG/3ML) 0.083% Inhalation Nebulization Solution (Proventil)Indicat ions:Mild intermittent asthma without complication Inhale 1 Vial via nebulizer every 4 hours as needed for Wheezing. 300 mL 1 1 Active oxygen IN GASIndications:Noc turnal hypoxemia Use as directed 2 L/min(Oxygen) as needed (via nasal cannula with exertion). titrate to off if SpO2 90-94%. 3 LPM via nasal cannula at bedtime and with all sleep. 1 Each 0 2 Active Atorvastatin Calcium 80 MG Oral Tablet (Lipitor)Indicatio ns:HTN, goal below 140/80,Coronary artery disease involving [place] heart without angina pectoris, unspecified vessel or lesion type,Nonrheumatic aortic valve stenosis,Dyslipide nguyen, goal LDL below 100 Take 1 Tablet by mouth in the morning. 90 Tablet 3 3 Active Escitalopram Oxalate 10 MG Oral Tablet (Lexapro)Indicatio ns:KELLY (generalized anxiety disorder) Take 1 Tablet by mouth in the morning. 90 Tablet 3 3 Active busPIRone HCl 15 MG Oral Tablet (Buspar) Take 1 Tablet by mouth in the morning and 1 Tablet before bedtime. 180 Tablet 3 3 Active ProAir HFA 108 (90 Base) MCG/ACT Inhalation Aerosol Solution Inhale 2 Puffs by mouth every 4 hours as needed for Cough or Wheezing. 54 g 1 3 Active Aspirin Low Dose 81 MG Oral Tablet Delayed Release (aspirin enteric coated)Indications :Type 2 diabetes mellitus with hemoglobin A1c goal of less than 8.0% (HCC) TAKE 1 TABLET BY MOUTH EVERY DAY 100 Tablet 3 3 Active Famotidine 20 MG Oral Tablet (Pepcid) TAKE 1 TABLET BY MOUTH 2 TIMES A DAY NEEDED FOR HEARTBURN. 180 Tablet 2 3 Active Clopidogrel Bisulfate 75 MG Oral Tablet (pLAVix)Indication s:Coronary artery disease involving [place] heart without angina pectoris, unspecified vessel or lesion type,S/P coronary artery stent placement TAKE 1 TABLET BY MOUTH EVERY DAY 90 Tablet 1 3 Active Acetaminophen ER 650 MG Oral Tablet Extended Release (Tylenol 8 Hour)Indications:A cute nonintractable headache, unspecified headache type Take 1 Tablet by mouth every 8 hours as needed for Pain, Moderate. 30 Tablet 0 3 Active Meclizine HCl 25 MG Oral Tablet (Antivert)Indicati ons:Vertigo Take 1 Tablet by mouth 3 times a day as needed for Dizziness. 90 Tablet 3 3 Active Ferrous Sulfate 325 (65 Fe) MG Oral Tablet (Feosol)Indication s:Iron deficiency anemia, unspecified iron deficiency anemia type Take 1 Tablet by mouth every other day. 45 Tablet 3 3 Active levETIRAcetam 500 MG Oral Tablet (Keppra) TAKE ONE (1) TABLET BY MOUTH TWICE DAILY IN THE MORNING AND BEFORE BEDTIME 60 Tablet 11 3 Active Lisinopril 5 MG Oral Tablet (Prinivil)Indicati ons:HTN, goal below 130/80 TAKE 1 TABLET BY MOUTH EVERY DAY IN THE MORNING 90 Tablet 3 3 Active Torsemide 20 MG Oral Tablet (Demadex)Indicatio ns:Chronic diastolic CHF (congestive heart failure) (HCC),Coronary artery disease involving [place] coronary artery of [place] heart without angina pectoris,Nonrheuma tic aortic valve stenosis,HTN, goal below 140/90 Take 1 Tablet by mouth in the morning. 90 Tablet 3 3 Active Gabapentin 300 MG Oral Capsule (Neurontin) Take 2 tablets three times daily 180 Capsule 1 3 Active Potassium Chloride Yvonne ER 20 MEQ Oral Tablet Extended ReleaseIndications :Edema, unspecified type TAKE 1 TABLET BY MOUTH IN THE MORNING 30 Tablet 5 3 Active Cyclobenzaprine HCl 10 MG Oral Tablet (Flexeril)Indicati ons:Lumbar disc disease TAKE 1 TABLET BY MOUTH IN THE MORNING AND BEFORE BEDTIME 60 Tablet 0 3 Active traZODone HCl 100 MG Oral Tablet (Desyrel) Take 1 Tablet by mouth at bedtime. 90 Tablet 3 3 Active Metoprolol Succinate ER 25 MG Oral Tablet Extended Release 24 Hour (toPROL XL)Indications:HTN , goal below 130/80 TAKE 1 TABLET BY MOUTH EVERY DAY 90 Tablet 3 3 Active Escitalopram Oxalate 20 MG Oral Tablet (Lexapro)Indicatio ns:Depression with anxiety TAKE 1 TABLET BY MOUTH EVERY DAY 90 Tablet 1 3 Active LANCET DEVICE MISCIndications:DM type 2, not at goal ([facility]) use as directed - for One Touch Ultra 1 box 5 0 04/10/20 Discontinu ed(Medicat ion List Clean Up) Blood Glucose Monitoring Suppl (ONETOUCH VERIO FLEX SYSTEM) w/Device KIT Use as directed. 0 04/10/20 23 Discontinu ed(Medicat ion List Clean Up) Insulin Syringe-Needle U-100 27G X 1/2" 1 ML Use as directed. 0 04/10/20 Discontinu ed(Medicat ion List Clean Up) ONETOUCH DELICA LANCETS 33G MISCIndications:Ty pe 2 diabetes mellitus with hemoglobin A1c goal of less than 8.0% ([facility]) Test as directed. Pt test 2 times daily. E11.9 100 Each 11 9 04/10/20 23 Discontinu ed(Medicat ion List Clean Up) NOVOFINE 32G PEN NEEDLE 32G X 6 MM MISCIndications:Ty pe 2 diabetes mellitus with hemoglobin A1c goal of less than 8.0% ([facility]) USE ONCE DAILY 100 Each 1 0 04/10/20 Discontinu ed(Medicat ion List Clean Up) Loratadine 10 MG Oral Capsule Take 1 Capsule by mouth daily as needed. 0 04/10/20 Discontinu ed(Medicat ion List Clean Up) Topiramate 25 MG Oral Tablet (Topamax)Indicatio ns:Chronic bilateral low back pain with right-sided sciatica Take 1 Tablet by mouth 2 times a day. 60 Tablet 1 2 04/10/20 Discontinu ed(Medicat ion List Clean Up) OneTouch Ultra Blue In Vitro Strip (Glucose Blood) Test three times daily. Dx E11.9 poorly controlled 300 Strip 3 2 04/10/20 Discontinu ed(Medicat ion List Clean Up) Spironolactone 25 MG Oral Tablet (Aldactone)Indicat ions:Fatigue, unspecified type Take by mouth 0.5 Tablets in the morning. 90 Tablet 1 2 04/10/20 Discontinu ed(Medicat ion List Clean Up) medroxyPROGESTERon e Acetate 150 MG/ML Intramuscular Suspension (Depo-Provera)Kaylen cations:Surveillan ce for Depo-Provera contraception INJECT 1 ML INTRAMUSCULARLY EVERY 3 MONTHS 1 mL 3 2 04/10/20 Discontinu ed(Medicat ion List Clean Up) Mupirocin 2 % External Ointment (Bactroban) APPLY TOPICALLY TO AFFECTED AREA THREE TIMES A DAY FOR UP TO 14 DAYS 22 g 10 3 04/10/20 Discontinu ed(Medicat ion List Clean Up) Breo Ellipta 200-25 MCG/ACT Inhalation Aerosol Powder Breath Activated INHALE ONE (1) PUFF BY MOUTH IN THE MORNING PLEASE RINSE MOUTH OUT AFTER USE 180 Blister Dosing Unit 3 3 04/10/20 Discontinu ed(Medicat ion List Clean Up) Hospital, Clinic, or Other Facility Administered Medication Ordered Dose Route Frequency Start Date End Date Status lidocaine 1 % inj 21 mgIndications:Cellulitis of arm, left,Abscess of multiple sites of upper arm 21 mg IJ Daily(AM) 09/20/2017 Active medroxyPROGESTERone acetate (DEPO-PROVERA) inj NORBERTO 150 mgIndications:Surveillance for Depo-Provera contraception 150 mg IM [id number] 09/09/2019 Active documented as of this encounter (statuses as of 04/10/2023) Active Problems Problem Noted Date Diagnosed Date [...] shared needles. Coronary artery disease invo lving [place] heart without angina pectoris 12/19/2016 S/P coronary [...] ?infection. Consider kailyn 1mo CT. 11/14 Dr Micahel VERGARA Trazodone 100mg? Suboxone Dr Max Garcia 06/17 incarcerated 01/14 admit [facility] ODvs suicide attempt. 02/13 d/c to [facility] in [place]. 09/13 ICU/intubated-fungal lnvamo-jaorm-Osxlxli dubliniensis. , hand abscess dayna albicans MED [...] as of this encounter (statuses as of 04/10/2023) Resolved Problems Problem Noted Date Diagnosed Date Resolved Date Hydronephrosis, right 12/06/20202020 Acute on chronic diastolic c ongestive heart failure 03/03/2020 08/26/2020 Major depressive disorder, r ecurrent, unspecified 12/30/2019 12/14/2021 Uncomplicated opioid dependence 06/23/2019 03/19/2022 Coronary artery disease invo lving [place] coronary artery of [place] heart without angina pectoris 06/23/2019 12/14/2021 Encounter for monitoring Sub oxone maintenance therapy 09/24/2018 12/14/2021 Polysubstance abuse 02/26/2018 03/19/20 22 Overview: Fall 2017 rehab [facility], etc will establish w/[facility] 02/2018 Suicide attempt [...] Sciatica 03/11/2013 04/11/2021 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 03/31/201211/2014 alf current use of ant icoagulant therapy 08/07/2010 [...] [facility] Repeat ultrasound is recommended in 3 [...] as of this encounter (statuses as of 04/10/2023) Immunizations Name Administration Dates Next Due COVID-19 [...] Day Cigarettes 2 31 Smokeless Tobacco: Never Tobacco Cessation:Ready to Q uit: Not Asked; Counseling Given: Not Answered Comments:started age 10- down to a few cigarettes a day Alcohol [...] on file documented as of this encounter Last Filed Vital Signs Vital Sign Reading Time Taken Comments Blood Pressure 112/62 04/10/2023 11:08 AM EST Pulse 88 04/10/2023 11:08 AM EST Temperature - - Respiratory Rate 14 04/10/2023 11:08 AM EST Oxygen Saturation 97% 04/10/2023 11:08 AM EST Inhaled Oxygen Concentration - - Weight 80.3 kg (177 lb) 04/10/2023 11:08 AM EST Height - - Body Mass Index 30.38 08/22/2022 10:02 AM EDT documented in this encounter Progress Notes * Irvin Iverson MD - 04/10/2023 5:07 PM EST SUBJECTIVE: Fritz Gonzalez is a 43 year old female here for Return Visit (6 month follow up- reports increased pain in back and legs. Unable to walk far without needed to stop. /Reports nausea over the last week.Feels she doesn't have much of an appetite. ) . Here w/fiance Mr. Cain. Patient states that over the last year has had increased sciatica pain especially with walking. She feels better sitting or lying. She is on gabapentin by Neurology. She thinks it is helpful somewhat but is interested in a dose increase. No weakness/numbness/incontinence Sometimes uses rolling walker. No new fevers chills chest pain shortness for breath nausea vomiting diarrhea constipation Her breathing has been okay since she was hospitalized over the summer. Hasn't had f/u CXR yet. She is taking oral iron supplements for her chronic anemia. ROS: Negative except above. Past Medical History: Diagnosis Date Adrenal adenoma, right 08/10/2022 Cervical incompetence, antepartum 03/02/2010 Chronic hepatitis C without hepatic coma (HCC) 09/09/201709/13 dx [facility]. New since 2015. Hx shared needles. NEEDS repeat Hep B series. Chronic hypoxemic respiratory failure (HCC) 07/24/2021 Coronary artery disease involving [place] heart without angina pectoris 12/19/2016 DM type 2, not at goal (HCC) Dyslipidemia 01/18/2012 Encounter for monitoring Suboxone maintenance therapy 09/24/2018 Epilepsy without status epilepticus, not intractable (HCC) 09/09/2017 Heart failure, diastolic (HCC) 08/26/2020 Hepatitis C antibody positive in blood 09/09/201709/13 dx [facility] History of narcotic addiction (HCC) 01/20/2015 Homeless 06/14/2017 HTN, goal below 140/90 INFORMATION herniated disc Leukocytosis, unspecified 09/03/2014 chronic Mitral valve disorder Mitral Valve Prolapse with SBE S/P coronary artery stent placement 12/19/2016 TERMINATED MEDICATION USAGE AGREEMENT 01/20/2015 Tricuspid valve vegetation 03/20/2022 Type 2 diabetes mellitus with hemoglobin A1c goal of less than 8.0% (HCC) 02/10/2009 lantus + metformin Past Surgical History: Procedure Laterality Date CARDIAC CATH-CARDIOLOGY ONLY 12/04/2022 mod-severe stenosis LAD + some other CAD. patent prior stent(s). Dr Avani Hay [facility] CARDIAC STENT PLACEMENT, ATHERECTOMY, 1 VESSEL 02/23/2020 PCI of mid right PDA with single ROJAS. [facility]. Dr. Glen Hay. CARPAL TUNNEL SURGERY 02/2009 R - by Dr Becerra DENTAL SURGERY PROCEDURE NEC Dental Surgery Procedure INCISION & DRAINAGE Right 09/04/2017 Dr Akil DOZIER-recurrent abscess. [facility] OR INCISION & DRAINAGE Left 09/11/2017 Office procedure - incision and drainage of abscess left wrist performed by Dr. Crystal Barnard 09/11/2017 LUMBAR DISC ARTHROPLAST,REVS,ADDL INTERSPCE 08/2011 [facility] LUMBAR PUNCTURE 07/16/2021 Dr Jaquez [facility]. encephalopathy. PATIENT HAS A CORONARY ARTERY STENT 2016 REMOVAL OF TONSILS, UNDER AGE 10 1990 Tonsils Removal,<10 Y/O REMOVE GALLBLADDER 1998 Cholecystectomy SPINAL FUSION, LUMBAR, COMBINED 11/2012 lumbar - [facility] THIGH OR KNEE SURGERY NEC 1994 Knee/Leg Other Procedures Unlisted TRANSESOPHAGEAL ECHO 09/18/2020 [facility] Dr Hall. Social History Socioeconomic History Marital status: Single Spouse name: Not on file Number of children: Not on file Years of education: Not on file Highest education level: Not on file Occupational History Occupation: unemployed Occupation: 2019 [employer] Tobacco Use Smoking status: Every Day Packs/day: 2.00 Years: 31.00 Additional pack years: 0.00 Total pack years: 62.00 Types: Cigarettes Smokeless tobacco: Never Tobacco comments: started age 10- down to a few cigarettes a day Vaping Use Vaping Use: Never used Substance and Sexual Activity Alcohol use: No Drug use: Not Currently Types: Cocaine, Methamphetamines, Oxycodone Comment: 08/15 & 02/13 [facility]. 2018-meth, cocaine in past. pills in past. IV narcotics Sexual activity: Not Currently Partners: Male control/protection: Injection Comment: Mar-Mr. Cain. son Kirk w/dad's custody Other Topics Concern Service Not Asked Blood Transfusions Not Asked Caffeine Concern Not Asked Occupational Exposure Not Asked Hobby Hazards Not Asked Sleep Concern Not Asked Stress Concern Not Asked Weight Concern Not Asked Special Diet Not Asked Back Care Not Asked Exercise Yes Comment: walks Bike Helmet Not Asked Seat Belt Not Asked Self-Exams Yes Comment: breast Social History Narrative 2019 incarcerated until 04/16/19 then did 1mo inpatient rehab at [facility]. 2019--outpatient rehab [facility], [facility], peer to peer w/Selena christina. 10/14 3 y probation for theft 05/2017-homeless since brother . Son in his dad's custody. CYS involved. 1 dog anjum No mold Social Determinants of Health Financial Resource Strain: Not on file Food Insecurity: Unknown (02/11/2023) Hunger Vital Sign Worried About Running Out of Food in the Last Year: Patient refused Ran Out of Food in the Last Year: Patient refused Transportation Needs: Not on file Physical Activity: Not on file Stress: Not on file Social Connections: Not on file Intimate Partner Violence: Not on file Housing Stability: Not on file Family History Problem Relation Age of Onset Diabetes Aunt (Unspecified) Heart Disorder Mother bypass surgery x2 Hypertension Mother Renal Hx Mother born with only one kidney Endocrine Disorder Mother T2 DM No Past Hx Brother breast/toll patrolman/colon at the age of 34 Other (Other) Brother Crohns disease Current Outpatient Medications Medication Sig Dispense Refill Nitroglycerin 0.4 MG Sublingual Tablet Sublingual (Nitrostat) Place 1 Tab under the tongue every 5 minutes as needed for Pain, Chest. Max dose 3 tablets in 15 minutes 25 Tab 3 glipiZIDE 10 MG Oral Tablet (Glucotrol) TAKE 1 TABLET BY MOUTH EVERY DAY TAKE 30 MINUTES BEFORE DINNER 90 Tab 3 Buprenorphine HCl-Naloxone HCl 8-2 MG Sublingual Tablet Sublingual (Suboxone) Place 1.5 Tablets under the tongue in the morning. Omeprazole 20 MG Oral Capsule Delayed Release Take 1 Capsule by mouth in the morning. Polyethylene Glycol 3350 17 GM/SCOOP Oral Powder (MiraLax) Take 17 g by mouth as needed for Constipation. Dissolve one heaping tablespoon in 8 ounces of water or juice. 507 g 5 Albuterol Sulfate (2.5 MG/3ML) 0.083% Inhalation Nebulization Solution (Proventil) Inhale 1 Vial via nebulizer every 4 hours as needed for Wheezing. 300 mL 1 oxygen IN GAS Use as directed 2 L/min(Oxygen) as needed (via nasal cannula with exertion). titrate to off if SpO2 90-94%. 3 LPM via nasal cannula at bedtime and with all sleep. 1 Each 0 Atorvastatin Calcium 80 MG Oral Tablet (Lipitor) Take 1 Tablet by mouth in the morning. 90 Tablet 3 Escitalopram Oxalate 10 MG Oral Tablet (Lexapro) Take 1 Tablet by mouth in the morning. 90 Tablet 3 busPIRone HCl 15 MG Oral Tablet (Buspar) Take 1 Tablet by mouth in the morning and 1 Tablet before bedtime. 180 Tablet 3 ProAir HFA 108 (90 Base) MCG/ACT Inhalation Aerosol Solution Inhale 2 Puffs by mouth every 4 hours as needed for Cough or Wheezing. 54 g 1 Aspirin Low Dose 81 MG Oral Tablet Delayed Release (aspirin enteric coated) TAKE 1 TABLET BY MOUTH EVERY DAY 100 Tablet 3 Famotidine 20 MG Oral Tablet (Pepcid) TAKE 1 TABLET BY MOUTH 2 TIMES A DAY NEEDED FOR HEARTBURN.180 Tablet 2 Clopidogrel Bisulfate 75 MG Oral Tablet (pLAVix) TAKE 1 TABLET BY MOUTH EVERY DAY 90 Tablet 1 Acetaminophen ER 650 MG Oral Tablet Extended Release (Tylenol 8 Hour) Take 1 Tablet by mouth every 8 hours as needed for Pain, Moderate. 30 Tablet 0 Meclizine HCl 25 MG Oral Tablet (Antivert) Take 1 Tablet by mouth 3 times a day as needed for Dizziness. 90 Tablet 3 Ferrous Sulfate 325 (65 Fe) MG Oral Tablet (Feosol) Take 1 Tablet by mouth every other day. 45 Tablet 3 levETIRAcetam 500 MG Oral Tablet (Keppra) TAKE ONE (1) TABLET BY MOUTH TWICE DAILY IN THE MORNING AND BEFORE BEDTIME 60 Tablet 11 Lisinopril 5 MG Oral Tablet (Prinivil) TAKE 1 TABLET BY MOUTH EVERY DAY IN THE MORNING 90 Tablet 3 Torsemide 20 MG Oral Tablet (Demadex) Take 1 Tablet by mouth in the morning. 90 Tablet 3 Gabapentin 300 MG Oral Capsule (Neurontin) Take 2 tablets three times daily 180 Capsule 1 Potassium Chloride Yvonne ER 20 MEQ Oral Tablet Extended Release TAKE 1 TABLET BY MOUTH IN THE MORNING 30 Tablet 5 Cyclobenzaprine HCl 10 MG Oral Tablet (Flexeril) TAKE 1 TABLET BY MOUTH IN THE MORNING AND BEFORE BEDTIME 60 Tablet 0 traZODone HCl 100 MG Oral Tablet (Desyrel) Take 1 Tablet by mouth at bedtime. 90 Tablet 3 Metoprolol Succinate ER 25 MG Oral Tablet Extended Release 24 Hour (toPROL XL) TAKE 1 TABLET BY MOUTH EVERY DAY 90 Tablet 3 Escitalopram Oxalate 20 MG Oral Tablet (Lexapro) TAKE 1 TABLET BY MOUTH EVERY DAY 90 Tablet 1 Current Facility-Administered Medications Medication Dose Route Frequency Provider Last Rate Last Admin lidocaine 1 % inj 21 mg 2.1 mL Injection Daily(AM) Irvin Iverson MD 21 mg at 09/26/17 1542 medroxyPROGESTERone acetate (DEPO-PROVERA) inj NORBERTO 150 mg 150 mg Intramuscular Q90 Days Tania GonzalezJOSETTE 150 mg at 05/17/21 1414 Physical: BP 112/62 | Pulse 88 | Resp 14 | Wt 80.3 kg (177 lb) | SpO2 97% | BMI 30.38 kg/m | BSA 1.9 m General-No apparent Distress Head, Eyes, Ears, Nose, Throat--Normocephalic, atraumatic Neck-Supple Lymph-no lymphadenopathy Lungs-Clear to Auscultation bilaterally Cardiovascular--Regular rate & Rhythm, +s1, s2, no murmur Abdomen-soft, nontender, nondistended + bowel sounds Extremities--no edema Mskel back tight, mostly NT Neuro-alert & oriented x3 2+dtr b/l 5/5 strength b/l +Straight leg raise b/l (M54.31, M54.32) Bilateral sciatica (primary encounter diagnosis) Plan: XR L SPINE COMPLETE W BENDING 6 VIEWS Get updated xray, may need MRI updated as well. She will f/u K Gautam re: possible gabapentin increase. (D50.9) Iron deficiency anemia, unspecified iron deficiency anemia type Plan: CBC WITH WBC DIFFERENTIAL, IRON SCREEN, INCLUDING TIBC, FERRITIN Kailyn. If still low , needs refer for IV iron (I25.10) Coronary artery disease involving [place] heart without angina pectoris, unspecified vesselor lesion type Plan: cont med mgmt (N18.31) Chronic kidney disease, stage 3a (HCC) Plan: stable. (N18.31, D63.1) Anemia in stage 3a chronic kidney disease Plan: as above (E11.9) Type 2 diabetes mellitus with hemoglobin A1c goal of less than 8.0% (HCC) Plan: stable cont mgmt (F33.1) Moderate recurrent major depression (HCC) Plan: chronic, no change (G40.909) Nonintractable epilepsy without status epilepticus, unspecified epilepsy type (HCC) Plan: stable, f/u neuro (This note was completed using the dictation program Fluency Direct. As such, there may be misspellings, word substitutions, or other variations that should not change the essence of the clinical content of this encounter note.If there is need for further clarification, please direct questions to the provider listed above.) Irvin Iverson MD documented in this encounter Nursing Notes * Meghann Sorensen LPN - 04/10/2023 11:08 AM EST The patient has been properly identified by confirmation of name and date of . Chief Complaint Patient presents with Return Visit 6 month follow up-reports increased pain in back and legs. Unable to walk far without needed to stop. Reports nausea over the last week. Feels she doesn't have much of an appetite. documented in this encounter Plan of Treatment Upcoming Encounters Date Type Department Care Team (Late st Contact Info) Description 04/19/2023 9:30 AM EST Office Visit Cardiology, [facility] [address] [place] [id number] Laina Greer CRNP [address] [place] [id number] 05/20/2023 2:00 PM EST Office Visit Gynecology/Obstetrics [facility] [address] [place] [phone] Hailey Lee CRNP [address] [place] [id number] 11/11/2023 11:00 AM EDT Office Visit Family Practice [facility] [address] [place] [phone] Irvin Iverson MD [address] [place] [id number] Scheduled Orders Name Type Priority Associated Diagnoses Orde r Schedule CBC WITH WBC DIFFERENTIAL Lab Routine Iron deficiency anemia, unspecified iron deficiency anemia type Expected: 04/10/2023 (Approximate), Expires: 04/10/2024 IRON SCREEN, INCLUDING TIBC Lab Routine Iron deficiency anemia, unspecified iron deficiency anemia type Expected: 04/10/2023 (Approximate), Expires: 04/09/2024 FERRITIN Lab Routine Iron deficiency anemia, unspecified iron deficiency anemia type Expected: 04/10/2023 (Approximate), Expires: 04/09/2024 XR L SPINE COMPLETE W BENDING 6 VIEWS Medical Imaging Routine Bilateral sciatica Ordered: 04/10/2023 Health Maintenance Due Date Last Done Comments [...] #[id number]) 08/04/2022 08/04/2021, 08/28/2017 COVID-19 Vaccine ( season) 2022 09/16/2020 Influenza Vaccine (FLU shot) (#1) 2022 02/10/2021, 03/03/2020 Cologuard 2023 Colonoscopy 2023 Colorectal Cancer Screening 2023 Fecal Occult Blood Test 2023 HbA1c 2023 08/06/2022, 06/0 12/2020, 11/04/2019, Additional history exists Sigmoidoscopy 2023 GFR 06/19/2023 12/17/2022, 07/29, 08/06/2022, Additional history exists PAP SMEAR-ANNUAL AGES 18-100 07/26/2023 07/25/2022, 09/24/2017, 07/14/2014, Additional history exists CKD HGB USE SMARTSET 30317 08/07/202308/06, 08/06/2022, 11/03/2021, Additional history exists Mammogram 08/08/2023 08/07/2022 Albumin/Creatinine Ratio 12/18/2023 023, 10/05/2020, 05/28/2019, Additional history exists CKD PHOS USE SMARTSET 53480 12/18/202311/28, 11/20/2020, 09/06/2017 DTaP,Tdap,and Td Vaccines (3 [...] Not on filedocumented as of this encounter Visit Diagnoses Diagnosis Bilateral sciatica- Primary Sciatica Iron deficiency anemia, unspecified iron deficiency anemia type Coronary artery disease involving [place] heart without angina pectoris, unspecified vessel or lesion type Chronic kidney disease, stage 3a (HCC) Anemia in stage 3a chronic kidney disease Type 2 diabetes mellitus with hemoglobin A1c goal of less than 8.0% (HCC) Moderate recurrent major depression (HCC) Major depressive disorder, recurrent episode, moderate Nonintractable epilepsy without status epilepticus, unspecified epilepsy type (HCC) documented in this encounter Advance Directives Latest Code Status on File Code Status Date Activated Date Inactivated Comments Full Code 02/15/2010 3:36 AM 02/16/2010 9:42 PM Thi s order reflects the patients wishes and were consensually agreed upon. Question Answer Comments Discussion of Advance Directives occurred with: Patient Care Teams Disability Benefits Specialist Relationship Specialty Start Date End Date Irvin Iverson MD [address] [address] PCP - General Family Medicine 04/02/22 documented as of this encounter
--- OUTSIDE RECORDS SUMMARY | 2023-04-22 11:17 | External Medical Summary | Summary of Care ---
Author Name Unknown Organization [facility] Address [address] [place] [address] Phone [phone] Care Team Providers Care Real Property Appraiser Name Role Phone Irvin Iverson MD Primary Care Provider + Reason for Visit * Reason Onset Date Comments Medication Question 04/10/2023 Encounter Details Date Type Department Care Team ([facility] Contact Info) Description 04/10/2023 Telephone Neurology [facility] [address] [place] [address] Gloria Florez PA-C [address] [place] [address] Medication Question Allergies Active Allergy Reactions Criticality Noted Date Comments Azithromycin Other (Please comment) 03/28/2004 cramps Covid-19 Mrna Vacc (Moderna) 07/24/2021 Severe SOB/ hospitalized. Eggs Or Egg-Derived Products 05/25/2022 Other reaction(s): vomiting Ensure 02/10/2007 Vomiting, diarrhea Mushroom Extract Complex Itching 12/17/2022 Mushrooms Novocain 02/15/2010 hives [place] Extract 05/25/2022 Other reaction(s): Hives Tramadol Seizure [...] :HTN, goal below 140/80,Coronary artery disease involving [place] heart without angina pectoris, unspecified vessel or [...] hemoglobin A1c goal of less than 8.0% ([facility]) TAKE 1 TABLET BY MOUTH EVERY DAY 100 Tablet 3 09/27/2022 Active Famotidine 20 MG Oral Tablet (Pepcid) TAKE 1 TABLET BY MOUTH 2 TIMES A DAY NEEDED FOR HEARTBURN. 180 Tablet 2 09/27/2022 Active Clopidogrel Bisulfate 75 MG Oral Tablet (pLAVix)Indications: Coronary artery disease involving [place] heart without angina pectoris, unspecified vessel or [...] (congestive heart failure) (HCC),Coronary artery disease involving [place] coronary artery of [place] heart without angina pectoris,Nonrheumati c aortic valve [...] mgIndications:Surveillance for Depo-Provera contraception 150 mg IM [id number] 09/09/2019 Active documented as of this encounter [...] hepatic coma 018 Overview: 09/13 dx [facility]. Genotype 1A. Confirmed 2021. New since 2015. Hx shared needles. Coronary artery disease invo lving [place] heart without angina pectoris 12/19/2016 S/P coronary [...] mid right PDA with single ROJAS [facility]. EF stable 55-60%. Lung nodules inc9mm LLL. ?infection. Consider kailyn 1mo CT. 11/14 Dr Michael LEDESMA Trazodone 100mg? Suboxone Dr Max Garcia 06/17 incarcerated 01/14 admit [facility]/[place] ODvs suicide attempt. 02/[facility] [place] 09/13 ICU/intubated-fungal dqsgmd-vzmdr-Sylyjfc dubliniensis. , hand abscess dayna albicans MED [...] 06/23/2019 03/19/2022 Coronary artery disease invo lving creek coronary artery of [place] heart without angina pectoris 06/23/2019 12/14/2021 Encounter for monitoring Sub oxone maintenance therapy 09/24/2018 12/14/2021 Polysubstance abuse 02/26/2018 03/19/20 Overview: Fall 2017 rehab [place]-[facility], etc will establish w/[facility] 02/2018 Suicide attempt by drug ingestion 02/20/2018 02/26/2018 Overview: gabapentin Seizure 09/09/2017 07/19/2020 Overview: 09/13 seizure noted. ?prior approx 5ya --placed on gabapentin Homeless 06/14/2017 11/27/2018 Tobacco abuse 04/15/2017 08/12/2017 Systolic murmur 03/04/2016 04/11/2021 Overview: 09/13 STEVEN [facility]-congential thickening Partial fusion aortica valve, trivial AI, no vegetation. 2012 TTE--mild-mod AR, ?bicuspid. 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/2014 [facility] current use of ant icoagulant therapy 08/07/2010 [...] encounter Miscellaneous Notes * Telephone Encounter - Ifeoma Dinero PHARM Tech - 04/11/2023 1:38 PM EST Pt calling to check the status of gabapentin increase. Thank you, Ifeoma Dinero [facility] Apartment Leasing Consultant II Centralized Clinical Pharmacy Services (CCPS) (Formerly [...] Please advise pt Thank you, Jennifer Acevedo [facility] Apartment Leasing Consultant II Centralized Clinical Pharmacy Services(CCPS)(Formerly Telepharmacy) 04/11/2023,10:20 [...] change for specialty med transfer Pt to [facility]. Thank you, Maricruz Yadav [facility] Sql Consultant II Centralized Clinical Pharmacy Services (CCPS) (Formerly [...] 04/19/2023 9:30 AM EST Office Visit Cardiology, [facility] [address] [place] [address] Laina Greer CRNP [address] [place] [address] 05/20/2023 2:00 PM EST Office Visit Gynecology/Obstetrics [facility] [address] [place] [address] Hailey Lee CRNP [address] [place] [address] 11/11/2023 11:00 AM EDT Office Visit Family Practice [facility] [address] [place] [address] Irvin Iverson MD [address] [place] [address] Health Maintenance Due Date Last Done Comments [...] SMARTSET #[id number]) 08/04/2022 08/04/2021, 08/28/2017 COVID-19 Vaccine (2022- season) 2022 09/16/2020 Influenza Vaccine (FLU shot) (#1) 2022 02/10/2021, 03/03/2020 Cologuard 2023 Colonoscopy 2023 Colorectal Cancer Screening 2023 Fecal Occult Blood Test 2023 HbA1c 2023 08/06/2022, 06/0 12/2020, 11/04/2019, Additional history exists Sigmoidoscopy 2023 GFR 06/19/2023 12/17/2022, 07/29, 08/06/2022, Additional history exists PAP SMEAR-ANNUAL AGES 18-100 07/26/2023 07/25/2022, 09/24/2017, 07/14/2014, Additional history exists CKD HGB USE SMARTSET 94023 08/07/202308/06, 08/06/2022, 11/03/2021, Additional history exists Mammogram 08/08/2023 08/07/2022 Albumin/Creatinine Ratio 12/18/2023 023, 10/05/2020, 05/28/2019, Additional history exists CKD PHOS USE SMARTSET 35764 12/18/202311/28, 11/20/2020, 09/06/2017 DTaP,Tdap,and Td Vaccines (3 [...] Advance Directives occurred with: Patient Care Teams Real Property Appraiser Relationship Specialty Start Date End Date Irvin Iverson MD [address] [place] [address] PCP - General Family Medicine 04/02/22 documented as of this encounter
--- OUTSIDE RECORDS SUMMARY | 2023-04-22 11:17 | External Medical Summary | Summary of Care ---
Author Name Unknown Organization [facility] Address [address] [place] [address] Phone [phone] Care Team Providers Care Underground Drill Operator Name Role Phone Irvin Iverson MD Primary Care Provider + Reason for Visit * Reason Onset Date Comments Medication Question 04/10/2023 Encounter Details Date Type Department Care Team ([facility] Contact Info) Description 04/10/2023 Telephone Neurology [facility] [address] [place] [address] Gloria Florez PA-C [address] [place] [address] Medication Question Allergies Active Allergy Reactions Criticality Noted Date Comments Azithromycin Other (Please comment) 03/28/2004 cramps Covid-19 Mrna Vacc (Moderna) 07/24/2021 Severe SOB/ hospitalized. Eggs Or Egg-Derived Products 05/25/2022 Other reaction(s): vomiting Ensure 02/10/2007 Vomiting, diarrhea Mushroom Extract Complex Itching 12/17/2022 Mushrooms Novocain 02/15/2010 hives [place] Extract 05/25/2022 Other reaction(s): Hives Tramadol Seizure [...] s:HTN, goal below 140/80,Coronary artery disease involving [place] heart without angina pectoris, unspecified vessel or [...] Oral Tablet (pLAVix)Indications :Coronary artery disease involving [place] heart without angina pectoris, unspecified vessel or lesion type,S/P coronary artery stent placement TAKE 1 TABLET BY MOUTH EVERY DAY 90 Tablet 1 12/13/2022 Active Acetaminophen ER 650 MG Oral Tablet Extended Release (Tylenol 8 Hour)Indications:Ac [place] nonintractable headache, unspecified headache type Take 1 [...] (congestive heart failure) (HCC),Coronary artery disease involving [place] coronary artery of [place] heart without angina pectoris,Nonrheumat ic aortic valve [...] mgIndications:Surveillance for Depo-Provera contraception 150 mg IM [id number] 09/09/2019 Active documented as of this encounter [...] hepatic coma 018 Overview: 09/13 dx [facility]. Genotype 1A. Confirmed 2021. New since 2015. Hx shared needles. Coronary artery disease invo lving [place] heart without angina pectoris 12/19/2016 S/P coronary [...] mid right PDA with single ROJAS [facility]. EF stable 55-60%. Lung nodules inc9mm LLL. ?infection. Consider kailyn 1mo CT. 11/14 Dr Michael LEDESMA Trazodone 100mg? Suboxone Dr Max Garcia 06/17 incarcerated 01/14 admit [facility]/[place] ODvs suicide attempt. 02/13 [facility] [place] 09/13 ICU/intubated-fungal hjvdvc-rlxaj-Ystvkcg dubliniensis. , hand abscess dayna albicans MED [...] 06/23/2019 03/19/2022 Coronary artery disease invo lving [place] coronary artery of [place] heart without angina pectoris 06/23/2019 12/14/2021 Encounter for monitoring Sub oxone maintenance therapy 09/24/2018 12/14/2021 Polysubstance abuse 02/26/2018 03/19/20 22 Overview: Fall 2017 rehab [place], etc will establish w[facility] 02/2018 Suicide attempt [...] Sciatica 03/11/2013 04/11/2021 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 03/31/201211/2014 prison current use of ant icoagulant therapy 08/07/2010 [...] platelets elevated at 464, repeat CBC at [facility] 02/08: Repeat ultrasound is recommended in 3 [...] plt elevated at 464; repeat CBC at [facility] Asthma with severity to be determined 10/20/2009 [...] encounter Miscellaneous Notes * Telephone Encounter - Mike Palmer groundskeeping maintenance worker - 04/11/2023 3:59 PM EST Pt requesting a call back from office directly. PT has been waiting for directions from and has not received ay. Please call pt at [phone]. Thank You, Mike Palmer [facility] News Specialist II Centralized Clinical Pharmacy Services (Formerly Telepharmacy) 04/11/2023, 4:00 PM * Addendum Note - Gloria Florez PA-C - 04/11/2023 3:54 PM ESTAddended by: GLORIA FLOREZ on: 04/11/2023 03:54 PM Modules accepted: Orders * Telephone Encounter - Ifeoma Dinero groundskeeping maintenance worker - 04/11/2023 1:38 PM EST Pt calling to check the status of gabapentin increase. Thank you, Ifeoma Dinero [facility] County Program Technician II Centralized Clinical Pharmacy Services (CCPS) (Formerly Telepharmacy) 04/11/2023, 1:38 PM * Addendum Note - Jennifer Acevedo groundskeeping maintenance worker - 04/11/2023 10:25 AM ESTAddended by: JENNIFER ACEVEDO on: 04/11/2023 10:25 AM Modules accepted: Orders * Telephone Encounter - Jennifer Acevedo groundskeeping maintenance worker - 04/11/2023 10:18 AM EST Pt stated that she is already taking 2 300 mg three times daily for 5-6 months Please advise pt Thank you, Jennifer Acevedo [facility] County Program Technician II Centralized Clinical Pharmacy Services(CCPS)(Formerly Telepharmacy) 04/11/2023,10:20 [...] change for specialty med transfer Pt to [facility]. Thank you, Maricruz Yadav [facility]Ph[facility] News Specialist II Centralized Clinical Pharmacy Services (CCPS) (Formerly [...] 04/19/2023 9:30 AM EST Office Visit Cardiology, [facility] [address] [place] [address] Laina Greer CRNP [address] [place] [address] 05/20/2023 2:00 PM EST Office Visit Gynecology/Obstetrics [facility] [address] [place] [address] Hailey Lee CRNP [address] [place] [address] 11/11/2023 11:00 AM EDT Office Visit Family Practice [facility] [address] [address] rIvin Iverson MD [address] [place] [address] Health Maintenance Due Date Last Done Comments [...] Additional history exists CKD HGB USE SMARTSET 44414 08/07/202308/06, 08/06/2022, 11/03/2021, Additional history exists Mammogram 08/08/2023 08/07/2022 Albumin/Creatinine Ratio 12/18/2023 023, 10/05/2020, 05/28/2019, Additional history exists CKD PHOS USE SMARTSET 23978 12/18/202311/28, 11/20/2020, 09/06/2017 DTaP,Tdap,and Td Vaccines (3 [...] Advance Directives occurred with: Patient Care Teams Underground Drill Operator Relationship Specialty Start Date End Date Irvin Iverson MD [address] [place] [address] PCP - General Family Medicine 04/02/22 documented as of this encounter
--- OUTSIDE RECORDS SUMMARY | 2023-04-22 11:17 | External Medical Summary | Summary of Care ---
Author Name Unknown Organization [facility] Address [address] [place] [address] Phone [phone] Care Team Providers Care Hand Packager Name Role Phone Irvin Iverson MD Primary Care Provider + Reason for Visit * Reason Onset Date Comments Medication Question 04/10/2023 Encounter Details Date Type Department Care Team ([facility] Contact Info) Description 04/10/2023 Telephone Neurology [facility] [address] [place] [address] Gloria Florez PA-C [address] [place] [address] Medication Question Allergies Active Allergy Reactions Criticality Noted Date Comments Azithromycin Other (Please comment) 03/28/2004 cramps Covid-19 Mrna Vacc (Moderna) 07/24/2021 Severe SOB/ hospitalized. Eggs Or Egg-Derived Products 05/25/2022 Other reaction(s): vomiting Ensure 02/10/2007 Vomiting, diarrhea Mushroom Extract Complex Itching 12/17/2022 Mushrooms Novocain 02/15/2010 hives [place] Extract 05/25/2022 Other reaction(s): Hives Tramadol Seizure [...] :HTN, goal below 140/80,Coronary artery disease involving [place] heart without angina pectoris, unspecified vessel or [...] hemoglobin A1c goal of less than 8.0% ([facility]) TAKE 1 TABLET BY MOUTH EVERY DAY 100 Tablet 3 09/27/2022 Active Famotidine 20 MG Oral Tablet (Pepcid) TAKE 1 TABLET BY MOUTH 2 TIMES A DAY NEEDED FOR HEARTBURN. 180 Tablet 2 09/27/2022 Active Clopidogrel Bisulfate 75 MG Oral Tablet (pLAVix)Indications: Coronary artery disease involving [place] heart without angina pectoris, unspecified vessel or [...] (congestive heart failure) (HCC),Coronary artery disease involving [place] coronary artery of [place] heart without angina pectoris,Nonrheumati c aortic valve [...] mgIndications:Surveillance for Depo-Provera contraception 150 mg IM [id number] 09/09/2019 Active documented as of this encounter [...] without hepatic coma 018 Overview: 09/13 dx [facility]. Genotype 1A. Confirmed 2021. New since 2015. Hx shared needles. Coronary artery disease invo lving [place] heart without angina pectoris 12/19/2016 S/P coronary [...] PCI mid right PDA with single ROJAS [facility]. EF stable 55-60%. Lung nodules inc9mm LLL. ?infection. Consider kailyn 1mo CT. 11/14 Dr Michael LEDESMA Trazodone 100mg? Suboxone Dr Max Garcia 06/17 incarcerated 01/14 admit [facility]/[place] ODvs suicide attempt. 02/[facility] [place] 09/13 ICU/intubated-fungal mhmdkn-gmuio-Ozxvtfg dubliniensis. , hand abscess dayna albicans MED [...] 06/23/2019 03/19/2022 Coronary artery disease invo lving [place] coronary artery of [place] heart without angina pectoris 06/23/2019 12/14/2021 Encounter for monitoring Sub oxone maintenance therapy 09/24/2018 12/14/2021 Polysubstance abuse 02/26/2018 03/19/20 Overview: Fall 2017 rehab [place]-[facility], etc will establish w/[facility] 02/2018 Suicide attempt by drug ingestion 02/20/2018 02/26/2018 Overview: gabapentin Seizure 09/09/2017 07/19/2020 Overview: 09/13 seizure noted. ?prior approx 5ya --placed on gabapentin Homeless 06/14/2017 11/27/2018 Tobacco abuse 04/15/2017 08/12/2017 Systolic murmur 03/04/2016 04/11/2021 Overview: 09/13 STEVEN [facility]-congential thickening Partial fusion aortica valve, trivial AI, no vegetation. 2012 TTE--mild-mod AR, ?bicuspid. 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/2014 halfway current use of ant icoagulant therapy 08/07/2010 [...] as of this encounter Miscellaneous Notes * Addendum Note - Jennifer Acevedo PHARM Tech - 04/11/2023 10:25 AM ESTAddended by: JENNIFER ACEVEDO on: 04/11/2023 10:25 AM Modules accepted: Orders * Telephone Encounter - Jennifer Acevedo PHARM Tech - 04/11/2023 10:18 AM EST Pt stated that she is already taking 2 300 mg three times daily for 5-6 months Please advise pt Thank you, Jennifer Acevedo CPhT Mobile Lab Technician II Centralized Clinical Pharmacy Services(CCPS)(Formerly Telepharmacy) [...] change for specialty med transfer Pt to [facility]. Thank you, Maricurz Yadav CPhT Stacker Attendant II Centralized Clinical Pharmacy Services (CCPS) (Formerly [...] is having the most pain. Thank you, GENNA ----- Message ----- From: Irvin Iverson MD [...] 04/19/2023 9:30 AM EST Office Visit Cardiology, [facility] [address] [address] Laina Greer CRNP [address] [place] [address] 05/20/2023 2:00 PM EST Office Visit Gynecology/Obstetrics [facility] [address] [address] Hailey Lee CRNP [address] [place] [address] 11/11/2023 11:00 AM EDT Office Visit Family Practice [facility] [address] [address] Irvin Iverson MD [address] [place] [address] Health Maintenance Due Date Last Done Comments [...] Additional history exists CKD HGB USE SMARTSET 78001 08/07/202308/06, 08/06/2022, 11/03/2021, Additional history exists Mammogram 08/08/2023 08/07/2022 Albumin/Creatinine Ratio 12/18/2023 023, 10/05/2020, 05/28/2019, Additional history exists CKD PHOS USE SMARTSET 29113 12/18/2023 08/2 04/2022, 11/20/2020, 09/06/2017 DTaP,Tdap,and Td Vaccines (3 - [...] Advance Directives occurred with: Patient Care Teams Hand Packager Relationship Specialty Start Date End Date Irvin Iverson MD [address] [facility] [place] [address] PCP - General Family Medicine 04/02/22 documented as of this encounter
--- OUTSIDE RECORDS SUMMARY | 2023-04-22 11:17 | External Medical Summary | Summary of Care ---
Author Name Unknown Organization [facility] Address [address] [place] [address] Phone [phone] Care Team Providers Care Street Sweeper Operator Name Role Phone Irvin Iverson MD Primary Care Provider + Reason for Visit * Reason Onset Date Comments Medication Question 04/10/2023 Encounter Details Date Type Department Care Team ([facility] Contact Info) Description 04/10/2023 Telephone Neurology [facility] [address] [place] [address] Gloria Florez PA-C [address] [place] [address] Medication Question Allergies Active Allergy Reactions Criticality Noted Date Comments Azithromycin Other (Please comment) 03/28/2004 cramps Covid-19 Mrna Vacc (Moderna) 07/24/2021 Severe SOB/ hospitalized. Eggs Or Egg-Derived Products 05/25/2022 Other reaction(s): vomiting Ensure 02/10/2007 Vomiting, diarrhea Mushroom Extract Complex Itching 12/17/2022 Mushrooms Novocain 02/15/2010 hives [place] Extract 05/25/2022 Other reaction(s): Hives Tramadol Seizure [...] :HTN, goal below 140/80,Coronary artery disease involving minto heart without angina pectoris, unspecified vessel or [...] hemoglobin A1c goal of less than 8.0% ([facility]) TAKE 1 TABLET BY MOUTH EVERY DAY 100 Tablet 3 09/27/2022 Active Famotidine 20 MG Oral Tablet (Pepcid) TAKE 1 TABLET BY MOUTH 2 TIMES A DAY NEEDED FOR HEARTBURN. 180 Tablet 2 09/27/2022 Active Clopidogrel Bisulfate 75 MG Oral Tablet (pLAVix)Indications: Coronary artery disease involving minto heart without angina pectoris, unspecified vessel or [...] (congestive heart failure) (HCC),Coronary artery disease involving minto coronary artery of minto heart without angina pectoris,Nonrheumati c aortic valve [...] mgIndications:Surveillance for Depo-Provera contraception 150 mg IM [id number] 09/09/2019 Active documented as of this encounter [...] without hepatic coma 018 Overview: 09/13 dx [facility]. Genotype 1A. Confirmed 2021. New since 2015. Hx shared needles. Coronary artery disease invo lving minto heart without angina pectoris 12/19/2016 S/P coronary [...] PCI mid right PDA with single ROJAS [facility]. EF stable 55-60%. Lung nodules inc9mm LLL. ?infection. Consider kailyn 1mo CT. 11/14 Dr Michael LEDESMA Trazodone 100mg? Suboxone Dr Max Garcia 06/17 incarcerated 01/14 admit [facility]/[place]kan ODvs suicide attempt. 02/[facility] [place] 09/13 ICU/intubated-fungal fqwvvx-oxoxn-Rieznux dubliniensis. , hand abscess dayna albicans MED [...] 06/23/2019 03/19/2022 Coronary artery disease invo lving minto coronary artery of minto heart without angina pectoris 06/23/2019 12/14/2021 Encounter for monitoring Sub oxone maintenance therapy 09/24/2018 12/14/2021 Polysubstance abuse 02/26/2018 03/19/20 Overview: Fall 2017 rehab [place], etc will establish w/[facility] 02/2018 Suicide attempt by drug ingestion 02/20/2018 02/26/2018 Overview: gabapentin Seizure 09/09/2017 07/19/2020 Overview: 09/13 seizure noted. ?prior approx 5ya --placed on gabapentin Homeless 06/14/2017 11/27/2018 Tobacco abuse 04/15/2017 08/12/2017 Systolic murmur 03/04/2016 04/11/2021 Overview: 09/13 STEVEN [facility]-congential thickening Partial fusion aortica valve, trivial AI, no vegetation. 2012 TTE--mild-mod AR, ?bicuspid. 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/2014 [facility] current use of ant icoagulant therapy 08/07/2010 [...] elevated at 464, repeat CBC at [facility] 02/08: Repeat ultrasound is recommended in 3 [...] advise pt Thank you, Jennifer Acevedo CPhT [place] Assessor II Centralized Clinical Pharmacy Services(CCPS)(Formerly Telepharmacy) 04/11/2023,10:20 [...] change for specialty med transfer Pt to [facility]. Thank you, Maricruz Yadav CPhT Machine Tool Technology Instructor II Centralized Clinical Pharmacy Services (CCPS) (Formerly [...] 04/19/2023 9:30 AM EST Office Visit Cardiology, [facility] [address] [address] Laina Greer CRNP [address] [place] [address] 05/20/2023 2:00 PM EST Office Visit Gynecology/Obstetrics [facility] [address] [address] Hailey Lee CRNP [address] [place] [address] 11/11/2023 11:00 AM EDT Office Visit Family Practice [facility] [address] [address] Irvin Iverson MD [address] [place] [address] Health Maintenance Due Date Last Done Comments [...] Additional history exists CKD HGB USE SMARTSET 27216 08/07/202308/06, 08/06/2022, 11/03/2021, Additional history exists Mammogram 08/08/2023 08/07/2022 Albumin/Creatinine Ratio 12/18/2023 023, 10/05/2020, 05/28/2019, Additional history exists CKD PHOS USE SMARTSET 11243 12/18/2023 08/2 04/2022, 11/20/2020, 09/06/2017 DTaP,Tdap,and Td [...] Advance Directives occurred with: Patient Care Teams Street Sweeper Operator Relationship Specialty Start Date End Date Irvin Iverson MD [address] [facility] [place] [address] PCP - General Family Medicine 04/02/22 documented as of this encounter
--- OUTSIDE RECORDS SUMMARY | 2023-04-22 11:17 | External Medical Summary | Summary of Care ---
Author Name Unknown Organization [facility] Address [address] [place] [address] Phone [phone] Care Team Providers Care Automatic Log Cut Off Sawyer Name Role Phone Irvin Iverson MD Primary Care Provider + Reason for Visit * Reason Onset Date Comments Medication Question 04/10/2023 Encounter Details Date Type Department Care Team ([facility] Contact Info) Description 04/10/2023 Telephone Neurology [facility] [address] [place] [address] Gloria Florez PA-C [address] [place] [address] Medication Question Allergies Active Allergy Reactions Criticality Noted Date Comments Azithromycin Other (Please comment) 03/28/2004 cramps Covid-19 Mrna Vacc (Moderna) 07/24/2021 Severe SOB/ hospitalized. Eggs Or Egg-Derived Products 05/25/2022 Other reaction(s): vomiting Ensure 02/10/2007 Vomiting, diarrhea Mushroom Extract Complex Itching 12/17/2022 Mushrooms Novocain 02/15/2010 hives [place] Extract 05/25/2022 Other reaction(s): Hives Tramadol Seizure [...] s:HTN, goal below 140/80,Coronary artery disease involving [place] heart without angina pectoris, unspecified vessel or [...] Oral Tablet (pLAVix)Indications :Coronary artery disease involving [place] heart without angina pectoris, unspecified vessel or lesion type,S/P coronary artery stent placement TAKE 1 TABLET BY MOUTH EVERY DAY 90 Tablet 1 12/13/2022 Active Acetaminophen ER 650 MG Oral Tablet Extended Release (Tylenol 8 Hour)Indications:Ac [place] nonintractable headache, unspecified headache type Take 1 [...] (congestive heart failure) (HCC),Coronary artery disease involving [place] coronary artery of [place] heart without angina pectoris,Nonrheumat ic aortic valve [...] mgIndications:Surveillance for Depo-Provera contraception 150 mg IM [id number] 09/09/2019 Active documented as of this encounter [...] without hepatic coma 018 Overview: 09/13 dx [facility]. Genotype 1A. Confirmed 2021. New since 2015. Hx shared needles. Coronary artery disease invo lving [place] heart without angina pectoris 12/19/2016 S/P coronary [...] PCI mid right PDA with single ROJAS [facility]. EF stable 55-60%. Lung nodules inc9mm LLL. ?infection. Consider kailyn 1mo CT. 11/14 Dr Michael LEDESMA Trazodone 100mg? Suboxone Dr Max Garcia 06/17 incarcerated 01/14 admit [facility]/Ashkan ODvs suicide attempt. 02/[facility] [place] 09/13 ICU/intubated-fungal hxtjlp-mvlbj-Dtzngnj dubliniensis. , hand abscess dayna albicans MED [...] 06/23/2019 03/19/2022 Coronary artery disease invo lving [place] coronary artery of [place] heart without angina pectoris 06/23/2019 12/14/2021 Encounter for monitoring Sub oxone maintenance therapy 09/24/2018 12/14/2021 Polysubstance abuse 02/26/2018 03/19/20 22 Overview: Fall 2017 rehab [place]-meth, etc will establish w[facility] 02/2018 Suicide attempt [...] Sciatica 03/11/2013 04/11/2021 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 03/31/201211/2014 snf current use of ant icoagulant therapy 08/07/2010 [...] platelets elevated at 464, repeat CBC at [facility] 02/08: Repeat ultrasound is recommended in [...] plt elevated at 464; repeat CBC at pr Asthma with severity to be determined 10/20/2009 [...] - Valeria Ji, MED ASSIST - 04/12/2023 8:45 AM EST Made pt aware of Gabapentin instructions and they expressed understanding. * Telephone Encounter - Mike Palmer header machine operator - 04/11/2023 3:59 PM EST Pt requesting a call back from office directly. PT has been waiting for directions from and has not received ay. Please call pt at [phone]. Thank You, Mike Palmer [facility] Greeting Card Maker II Centralized Clinical Pharmacy Services (Formerly Telepharmacy) 04/11/2023, 4:00 PM * Addendum Note - Gloria Florez PA-C - 04/11/2023 3:54 PM ESTAddended by: GLORIA FLOREZ on: 04/11/2023 03:54 PM Modules accepted: Orders * Telephone Encounter - Ifeoma Dinero header machine operator - 04/11/2023 1:38 PM EST Pt calling to check the status of gabapentin increase. Thank you, Ifeoma Dinero [facility] Manager Special Events II Centralized Clinical Pharmacy Services (CCPS) (Formerly Telepharmacy) 04/11/2023, 1:38 PM * Addendum Note - Jennifer Acevedo header machine operator - 04/11/2023 10:25 AM ESTAddended by: JENNIFER ACEVEDO on: 04/11/2023 10:25 AM Modules accepted: Orders * Telephone Encounter - Jennifer Acevedo PHARM Tech - 04/11/2023 10:18 AM EST Pt stated that she is already taking 2 300 mg three times daily for 5-6 months Please advise pt Thank you, Jennifer Acevedo CPhT Manager Special Events II Centralized Clinical Pharmacy Services(CCPS)(Formerly Telepharmacy) 04/11/2023,10:20 [...] for specialty med transfer Pt to [facility]. Thank you, Maricruz Yadav CPhT Greeting Card Maker II Centralized Clinical Pharmacy Services (CCPS) (Formerly [...] 04/19/2023 9:30 AM EST Office Visit Cardiology, [facility] [address] [address] Laina Greer CRNP [address] [place] [address] 05/20/2023 2:00 PM EST Office Visit Gynecology/Obstetrics [facility] [address] [address] Hailey Lee CRNP [address] [place] [address] 11/11/2023 11:00 AM EDT Office Visit Family Practice [facility] [address] [address] Irvin Iverson MD [address] [place] [address] Health Maintenance Due Date Last Done Comments [...] Additional history exists CKD HGB USE SMARTSET 79523 08/07/202308/06, 08/06/2022, 11/03/2021, Additional history exists Mammogram 08/08/2023 08/07/2022 Albumin/Creatinine Ratio 12/18/2023 023, 10/05/2020, 05/28/2019, Additional history exists CKD PHOS USE SMARTSET 82789 12/18/202311/28, 11/20/2020, 09/06/2017 DTaP,Tdap,and Td Vaccines (3 [...] Code 02/15/2010 3:36 AM 02/16/2010 9:42 PM Th is order reflects the patients wishes and were consensually agreed upon. Question Answer Comments Discussion of Advance Directives occurred with: Patient Care Teams Automatic Log Cut Off Sawyer Relationship Specialty Start Date End Date Irvin Iverson MD [address] [facility] [place] [address] PCP - General Family Medicine 04/02/22 documented as of this encounter
--- OUTSIDE RECORDS SUMMARY | 2023-04-22 11:17 | External Medical Summary | Summary of Care ---
Author Name Unknown Organization [facility] Address [address] [place] [address] Phone [phone] Care Team Providers Care Grocery Clerk Name Role Phone Irvin Iverson MD Primary Care Provider + Reason for Visit * Reason Onset Date Comments Medication Question 04/10/2023 Encounter Details Date Type Department Care Team ([facility] Contact Info) Description 04/10/2023 Telephone Neurology [facility] [address] [place] [address] Gloria Florez PA-C [address] [place] [address] Medication Question Allergies Active Allergy Reactions Criticality Noted Date Comments Azithromycin Other (Please comment) 03/28/2004 cramps Covid-19 Mrna Vacc (Moderna) 07/24/2021 Severe SOB/ hospitalized. Eggs Or Egg-Derived Products 05/25/2022 Other reaction(s): vomiting Ensure 02/10/2007 Vomiting, diarrhea Mushroom Extract Complex Itching 12/17/2022 Mushrooms Novocain 02/15/2010 hives [place] Extract 05/25/2022 Other reaction(s): Hives Tramadol Seizure [...] s:HTN, goal below 140/80,Coronary artery disease involving [place] heart without angina pectoris, unspecified vessel or [...] Oral Tablet (pLAVix)Indications :Coronary artery disease involving [place] heart without angina pectoris, unspecified vessel or lesion type,S/P coronary artery stent placement TAKE 1 TABLET BY MOUTH EVERY DAY 90 Tablet 1 12/13/2022 Active Acetaminophen ER 650 MG Oral Tablet Extended Release (Tylenol 8 Hour)Indications:Ac [place] nonintractable headache, unspecified headache type Take 1 [...] (congestive heart failure) (HCC),Coronary artery disease involving [place] coronary artery of [place] heart without angina pectoris,Nonrheumat ic aortic valve [...] mgIndications:Surveillance for Depo-Provera contraception 150 mg IM [id number] 09/09/2019 Active documented as of this encounter [...] without hepatic coma 018 Overview: 09/13 dx [facility]. Genotype 1A. Confirmed 2021. New since 2015. Hx shared needles. Coronary artery disease invo lving [place] heart without angina pectoris 12/19/2016 S/P coronary [...] PCI mid right PDA with single ROJAS [facility]. EF stable 55-60%. Lung nodules inc9mm LLL. ?infection. Consider kailyn 1mo CT. 11/14 Dr Michael LEDESMA Trazodone 100mg? Suboxone Dr Max Garcia 06/17 incarcerated 01/14 admit [facility]/Ashkan ODvs suicide attempt. 02/13 [facility] [place]. 09/13 ICU/intubated-fungal bjyeil-bklyr-Ewzumwt dubliniensis. , hand abscess dayna albicans MED [...] 06/23/2019 03/19/2022 Coronary artery disease invo lving [place] coronary artery of [place] heart without angina pectoris 06/23/2019 12/14/2021 Encounter for monitoring Sub oxone maintenance therapy 09/24/2018 12/14/2021 Polysubstance abuse 02/26/2018 03/19/20 22 Overview: Fall 2017 rehab [place]-meth, etc will establish w[facility] 02/2018 Suicide attempt [...] Sciatica 03/11/2013 04/11/2021 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 03/31/201211/2014 skilled nursing current use of ant icoagulant therapy 08/07/2010 [...] platelets elevated at 464, repeat CBC at [facility] 02/08: Repeat ultrasound is recommended in [...] plt elevated at 464; repeat CBC at de Asthma with severity to be determined 10/20/2009 [...] encounter Miscellaneous Notes * Addendum Note - Gloria Florez PA-C - 04/11/2023 3:54 PM ESTAddended by: GLORIA FLOREZ on: 04/11/2023 03:54 PM Modules accepted: Orders * Telephone Encounter - Ifeoma Dinero PHARM Tech - 04/11/2023 1:38 PM EST Pt calling to check the status of gabapentin increase. Thank you, Ifeoma Dinero [facility] Tax Services Manager II Centralized Clinical Pharmacy Services (CCPS) (Formerly [...] Please advise pt Thank you, Jennifer Acevedo [facility] Tax Services Manager II Centralized Clinical Pharmacy Services(CCPS)(Formerly Telepharmacy) 04/11/2023,10:20 [...] change for specialty med transfer Pt to . Thank you, Maricruz Yadav CPhT Morphology Teacher II Centralized Clinical Pharmacy Services (CCPS) (Formerly [...] 04/19/2023 9:30 AM EST Office Visit Cardiology, [facility] [address] [place] [address] Laina Greer CRNP [address] [place] [address] 05/20/2023 2:00 PM EST Office Visit Gynecology/Obstetrics [facility] [address] [place] [address] Hailey Lee CRNP [address] [place] [address] 11/11/2023 11:00 AM EDT Office Visit Family Practice [facility] [address] [place] [address] Irvin Iverson MD [address] [place] [address] Health Maintenance Due Date Last Done Comments [...] Additional history exists CKD HGB USE SMARTSET 02395 08/07/202308/06, 08/06/2022, 11/03/2021, Additional history exists Mammogram 08/08/2023 08/07/2022 Albumin/Creatinine Ratio 12/18/2023 023, 10/05/2020, 05/28/2019, Additional history exists CKD PHOS USE SMARTSET 45721 12/18/202311/28, 11/20/2020, 09/06/2017 DTaP,Tdap,and Td Vaccines (3 [...] Advance Directives occurred with: Patient Care Teams Grocery Clerk Relationship Specialty Start Date End Date Irvin Iverson MD [address] [address] PCP - General Family Medicine 04/02/22 documented as of this encounter
--- OUTSIDE RECORDS SUMMARY | 2023-04-22 11:17 | External Medical Summary | Summary of Care ---
Author Name Unknown Organization [facility] Address [address] [place] [address] Phone [phone] Care Team Providers Care Drawing Hand Name Role Phone Irvin Iverson MD Primary Care Provider + Reason for Visit * Reason Onset Date Comments Medication Question 04/10/2023 Encounter Details Date Type Department Care Team ([facility] Contact Info) Description 04/10/2023 Telephone Neurology [facility] [address] [place] [address] Gloria Florez PA-C [address] [place] [address] Medication Question Allergies Active Allergy Reactions Criticality Noted Date Comments Azithromycin Other (Please comment) 03/28/2004 cramps Covid-19 Mrna Vacc (Moderna) 07/24/2021 Severe SOB/ hospitalized. Eggs Or Egg-Derived Products 05/25/2022 Other reaction(s): vomiting Ensure 02/10/2007 Vomiting, diarrhea Mushroom Extract Complex Itching 12/17/2022 Mushrooms Novocain 02/15/2010 hives [place] Extract 05/25/2022 Other reaction(s): Hives Tramadol Seizure [...] :HTN, goal below 140/80,Coronary artery disease involving [place] heart without angina pectoris, unspecified vessel or [...] hemoglobin A1c goal of less than 8.0% ([facility]) TAKE 1 TABLET BY MOUTH EVERY DAY 100 Tablet 3 09/27/2022 Active Famotidine 20 MG Oral Tablet (Pepcid) TAKE 1 TABLET BY MOUTH 2 TIMES A DAY NEEDED FOR HEARTBURN. 180 Tablet 2 09/27/2022 Active Clopidogrel Bisulfate 75 MG Oral Tablet (pLAVix)Indications: Coronary artery disease involving [place] heart without angina pectoris, unspecified vessel or [...] (congestive heart failure) (HCC),Coronary artery disease involving [place] coronary artery of [place] heart without angina pectoris,Nonrheumati c aortic valve [...] mgIndications:Surveillance for Depo-Provera contraception 150 mg IM [id number] 09/09/2019 Active documented as of this encounter [...] without hepatic coma 018 Overview: 09/13 dx [facility]. Genotype 1A. Confirmed 2021. New since 2015. Hx shared needles. Coronary artery disease invo lving [place] heart without angina pectoris 12/19/2016 S/P coronary [...] PCI mid right PDA with single ROJAS [facility]. EF stable 55-60%. Lung nodules inc9mm LLL. ?infection. Consider kailyn 1mo CT. 11/14 Dr Michael LEDESMA Trazodone 100mg? Suboxone Dr Max Garcia 06/17 incarcerated 01/14 admit [facility]/Ashkan ODvs suicide attempt. 02/[facility] [place] 09/13 ICU/intubated-fungal dtynhv-kwagy-Exasrqo dubliniensis. , hand abscess dayna albicans MED [...] 06/23/2019 03/19/2022 Coronary artery disease invo lving [place] coronary artery of [place] heart without angina pectoris 06/23/2019 12/14/2021 Encounter for monitoring Sub oxone maintenance therapy 09/24/2018 12/14/2021 Polysubstance abuse 02/26/2018 03/19/20 Overview: Fall 2017 rehab [place]-meth, etc will establish w[facility] 02/2018 Suicide attempt by drug ingestion 02/20/2018 02/26/2018 Overview: gabapentin Seizure 09/09/2017 07/19/2020 Overview: 09/13 seizure noted. ?prior approx 5ya --placed on gabapentin Homeless 06/14/2017 11/27/2018 Tobacco abuse 04/15/2017 08/12/2017 Systolic murmur 03/04/2016 04/11/2021 Overview: 09/13 [facility]-congential thickening Partial fusion aortica valve, trivial [...] elevated at 464, repeat CBC at nv [facility] 02/08: Repeat ultrasound is recommended in [...] change for specialty med transfer Pt to [facility]. Thank you, Maricruz Yadav CPhT Machining And Assembly Supervisor II Centralized Clinical Pharmacy Services (CCPS) (Formerly [...] 04/19/2023 9:30 AM EST Office Visit Cardiology, [facility] [address] [place] [address] Laina Greer CRNP [address] [place] [address] 05/20/2023 2:00 PM EST Office Visit Gynecology/Obstetrics [facility] [address] [place] [address] Hailey Lee CRNP [address] [place] [address] 11/11/2023 11:00 AM EDT Office Visit Family Practice [facility] [address] [place] [address] Irvin Iverson MD [address] [place] [address] Health Maintenance Due Date Last Done Comments [...] Additional history exists CKD HGB USE SMARTSET 58824 08/07/202308/06, 08/06/2022, 11/03/2021, Additional history exists Mammogram 08/08/2023 08/07/2022 Albumin/Creatinine Ratio 12/18/2023 023, 10/05/2020, 05/28/2019, Additional history exists CKD PHOS USE SMARTSET 92944 12/18/202311/28, 11/20/2020, 09/06/2017 DTaP,Tdap,and Td Vaccines (3 [...] Advance Directives occurred with: Patient Care Teams Drawing Hand Relationship Specialty Start Date End Date Irvin Iverson MD [address] [place] [address] PCP - General Family Medicine 04/02/22 documented as of this encounter
--- OUTSIDE RECORDS SUMMARY | 2023-04-22 11:17 | External Medical Summary | Summary of Care ---
Author Name Unknown Organization [facility] Address [address] [place] [address] Phone [phone] Care Team Providers Care Jammer Hooker Name Role Phone Irvin Iverson MD Primary Care Provider + Reason for Visit * Reason Onset Date Comments Medication Question 04/10/2023 Encounter Details Date Type Department Care Team ([facility] Contact Info) Description 04/10/2023 Telephone Neurology [facility] [address] [place] [address] Gloria Florez PA-C [address] [place] [address] Medication Question Allergies Active Allergy Reactions Criticality Noted Date Comments Azithromycin Other (Please comment) 03/28/2004 cramps Covid-19 Mrna Vacc (Moderna) 07/24/2021 Severe SOB/ hospitalized. Eggs Or Egg-Derived Products 05/25/2022 Other reaction(s): vomiting Ensure 02/10/2007 Vomiting, diarrhea Mushroom Extract Complex Itching 12/17/2022 Mushrooms Novocain 02/15/2010 hives [place] Extract 05/25/2022 Other reaction(s): Hives Tramadol Seizure [...] :HTN, goal below 140/80,Coronary artery disease involving north fork heart without angina pectoris, unspecified vessel or [...] hemoglobin A1c goal of less than 8.0% ([facility]) TAKE 1 TABLET BY MOUTH EVERY DAY 100 Tablet 3 09/27/2022 Active Famotidine 20 MG Oral Tablet (Pepcid) TAKE 1 TABLET BY MOUTH 2 TIMES A DAY NEEDED FOR HEARTBURN. 180 Tablet 2 09/27/2022 Active Clopidogrel Bisulfate 75 MG Oral Tablet (pLAVix)Indications: Coronary artery disease involving north fork heart without angina pectoris, unspecified vessel or [...] (congestive heart failure) (HCC),Coronary artery disease involving north fork coronary artery of north fork heart without angina pectoris,Nonrheumati c aortic valve [...] mgIndications:Surveillance for Depo-Provera contraception 150 mg IM [id number] 09/09/2019 Active documented as of this encounter [...] hepatic coma 018 Overview: 09/13 dx [facility]. Genotype 1A. Confirmed 2021. New since 2015. Hx shared needles. Coronary artery disease invo lving north fork heart without angina pectoris 12/19/2016 S/P coronary [...] mid right PDA with single ROJAS [facility]. EF stable 55-60%. Lung nodules inc9mm LLL. ?infection. Consider kailyn 1mo CT. 11/14 Dr Michael LEDESMA Trazodone 100mg? Suboxone Dr Max Garcia 06/17 incarcerated 01/14 admit [facility]/Ashkan ODvs suicide attempt. 02/13 d[facility] [place]. 09/13 ICU/intubated-fungal ubaxel-zfplm-Cutuqyh dubliniensis. , hand abscess dayna albicans MED [...] 06/23/2019 03/19/2022 Coronary artery disease invo lving north fork coronary artery of north fork heart without angina pectoris 06/23/2019 12/14/2021 Encounter for monitoring Sub oxone maintenance therapy 09/24/2018 12/14/2021 Polysubstance abuse 02/26/2018 03/19/20 Overview: Fall 2017 rehab [facility]-meth, etc will establish w/[facility] 02/2018 Suicide attempt by drug ingestion 02/20/2018 02/26/2018 Overview: gabapentin Seizure 09/09/2017 07/19/2020 Overview: 09/13 seizure noted. ?prior approx 5ya --placed on gabapentin Homeless 06/14/2017 11/27/2018 Tobacco abuse 04/15/2017 08/12/2017 Systolic murmur 03/04/2016 04/11/2021 Overview: 09/13 STEVEN [facility]-congential thickening Partial fusion aortica valve, trivial AI, no vegetation. 2012 TTE--mild-mod AR, ?bicuspid. 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/2014 jail current use of ant icoagulant therapy 08/07/2010 [...] elevated at 464, repeat CBC at [facility] 02/08: Repeat ultrasound is recommended in [...] encounter Miscellaneous Notes * Telephone Encounter - Chrissy Dunbar formerly [facility] - 04/10/2023 5:08 PM EST See follow up on this in other telephone encounter today 04/10/23. Thank you, Chrissy Dunbar PharmD Clinical Pharmacist [facility] ([facility]) (formerly [email or web address]) [phone] 04/10/2023, 5:08 PM * Telephone Encounter - Chrissy Dunbar formerly [facility] - 04/10/2023 12:06 PM EST Pt had appt with PCP today and would like to increase Gabapentin dose from 600mg TID to 800mg TID due to not working as well. Pt said that PCP wanted her to discuss it with neurologist for approval. As per UpToDate, recommended maxium maintenance dose for current renal function is 1,800 mg/day in 3 divided doses. 800mg TID would exceed this. Serum creatinine: 1.3 mg/dL (H) 12/17/22 1524 Estimated creatinine clearance: 56 mL/min (A) Forwarding to neurologist to please further review and advise. Pt can be contacted at [phone]. Thank you, Chrissy Dunbar PharmD Clinical Pharmacist [facility] ([facility]) (formerly [email or web address]) [phone] 04/10/2023, 12:12 PM * Telephone Encounter - Radha Leija CPhT - 04/10/2023 11:57 AM EST Pt calling in to request a dose change on their Gabapentin. Current dose: 300 mg Requested dose: 800 mg Reason for request: not working Preferred pharmacy: [id number] Warm-transferred pt to pharmacist for consultation. Thank you, Radha Leija Edger Automatic [facility] ([facility]) (formerly [facility]) 04/10/2023, 11:57 AM documented in this encounter Plan of Treatment Upcoming Encounters Date Type Department Care Team (Late st Contact Info) Description 04/19/2023 9:30 AM EST Office Visit Cardiology, [facility] [address] [place] [address] Laina Greer CRNP [address] [place] [address] 05/20/2023 2:00 PM EST Office Visit Gynecology/Obstetrics [facility] [address] [place] [address] Hailey Lee CRNP [address] [place] [address] 11/11/2023 11:00 AM EDT Office Visit Family Practice [facility] [address] [address] Irvin Iverson MD [address] [place] [address] Health Maintenance Due Date Last Done Comments [...] 08/04/2022 08/04/2021, 08/28/2017 COVID-19 Vaccine (2 - 2022-24 season) 2022 09/16/2020 Influenza Vaccine (FLU shot) (#1) 2022 02/10/2021, 03/03/2020 Cologuard 2023 Colonoscopy 2023 Colorectal Cancer Screening 2023 Fecal Occult Blood Test 2023 HbA1c 2023 08/06/2022, 06/0 12/2020, 11/04/2019, Additional history exists Sigmoidoscopy 2023 GFR 06/19/2023 12/17/2022, 07/29, 08/06/2022, Additional history exists PAP SMEAR-ANNUAL AGES 18-100 07/26/2023 07/25/2022, 09/24/2017, 07/14/2014, Additional history exists CKD HGB USE SMARTSET 66006 08/07/202308/06, 08/06/2022, 11/03/2021, Additional history exists Mammogram 08/08/2023 08/07/2022 Albumin/Creatinine Ratio 12/18/2023 023, 10/05/2020, 05/28/2019, Additional history exists CKD PHOS USE SMARTSET 96834 12/18/202311/28, 11/20/2020, 09/06/2017 DTaP,Tdap,and Td Vaccines (3 [...] Advance Directives occurred with: Patient Care Teams Jammer Hooker Relationship Specialty Start Date End Date Irvin Iverson MD [address] [place] [address] PCP - General Family Medicine 04/02/22 documented as of this encounter
--- OUTSIDE RECORDS SUMMARY | 2023-04-22 11:18 | External Medical Summary | Summary of Care ---
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 Eggs Or Egg-Derived Products 05/25/2022 Other reaction(s): vomiting Ensure 02/10/2007 Vomiting, diarrhea Mushroom Extract Complex Itching 12/17/2022 Mushrooms Novocain 02/15/2010 hives [place] Extract 05/25/2022 Other reaction(s): Hives Tramadol Seizure High 09/09/2012 documented as of this encounter (statuses as of 04/09/2023) Medications Medication Sig Dispensed Refills Start Date End Date Status LANCET DEVICE MISCIndications:DM type 2, not at goal (HCC) use as directed - for One Touch Ultra 1 box 5 05/09/19 10 Active Additional Information Patient not taking.Informant: Patient, Reported on 12/17/2022 Blood Glucose Monitoring Suppl (ONETOUCH VERIO FLEX SYSTEM) w/Device KIT Use as directed. 0 Active Insulin Syringe-Needle U-100 27G X 1/2" 1 ML Use as directed. 0 Active ONETOUCH DELICA LANCETS 33G MISCIndications:Ty pe 2 diabetes mellitus with hemoglobin A1c goal of less than 8.0% (HCC) Test as directed. Pt test 2 times daily. E11.9 100 Each 11 08/27/19 19 Active Additional Information Patient not taking.Informant: Patient, Reported on 12/17/2022 NOVOFINE 32G PEN NEEDLE 32G X 6 MM MISCIndications:Ty pe 2 diabetes mellitus with hemoglobin A1c goal of less than 8.0% (HCC) USE ONCE DAILY 100 Each 1 10/01/19 20 Active Additional Information Patient not taking.Informant: Patient, Reported on 12/17/2022 Nitroglycerin 0.4 MG Sublingual Tablet Sublingual (Nitrostat) Place 1 Tab under the tongue every 5 minutes as needed for Pain, Chest. Max dose 3 tablets in 15 minutes 25 Tab 3 03/16/20 20 Active glipiZIDE 10 MG Oral Tablet (Glucotrol) TAKE 1 TABLET BY MOUTH EVERY DAY TAKE 30 MINUTES BEFORE DINNER 90 Tab 3 10/10/19 21 Active Buprenorphine HCl-Naloxone HCl 8-2 MG Sublingual Tablet Sublingual (Suboxone) Place 1.5 Tablets under the tongue in the morning. 0 Active Loratadine 10 MG Oral Capsule Take 1 Capsule by mouth daily as needed. 0 Active Omeprazole 20 MG Oral Capsule Delayed Release Take 1 Capsule by mouth in the morning. 0 Active Polyethylene Glycol 3350 17 GM/SCOOP Oral Powder (MiraLax)Indicatio ns:Constipation, unspecified constipation type Take 17 g by mouth as needed for Constipation. Dissolve one heaping tablespoon in 8 ounces of water or juice. 507 g 5 01/19/20 21 Active Albuterol Sulfate (2.5 MG/3ML) 0.083% Inhalation Nebulization Solution (Proventil)Indicat ions:Mild intermittent asthma without complication Inhale 1 Vial via nebulizer every 4 hours as needed for Wheezing. 300 mL 1 03/21/20 21 Active Topiramate 25 MG Oral Tablet (Topamax)Indicatio ns:Chronic bilateral low back pain with right-sided sciatica Take 1 Tablet by mouth 2 times a day. 60 Tablet 1 05/17/19 Active Additional Information Patient not taking.Informant: Patient, Reported on 12/17/2022 OneTouch Ultra Blue In Vitro Strip (Glucose Blood) Test three times daily. Dx E11.9 poorly controlled 300 Strip 3 07/25/19 Active Additional Information Patient not taking.Informant: Patient, Reported on 12/17/2022 oxygen IN GASIndications:Noc turnal hypoxemia Use as directed 2 L/min(Oxygen) as needed (via nasal cannula with exertion). titrate to off if SpO2 90-94%. 3 LPM via nasal cannula at bedtime and with all sleep. 1 Each 0 09/29/19 Active Spironolactone 25 MG Oral Tablet (Aldactone)Indicat ions:Fatigue, unspecified type Take by mouth 0.5 Tablets in the morning. 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 90 Tablet 3 08/31/19 23 Active Escitalopram Oxalate 10 MG Oral Tablet (Lexapro)Indicatio ns:KELLY (generalized anxiety disorder) Take 1 Tablet by mouth in the morning. 90 Tablet 3 08/31/19 23 Active busPIRone HCl 15 MG Oral Tablet (Buspar) Take 1 Tablet by mouth in the morning and 1 Tablet before bedtime. 180 Tablet 3 08/31/19 23 Active Escitalopram Oxalate 20 MG Oral Tablet (Lexapro)Indicatio ns:Depression with anxiety Take 1 Tablet by mouth in the morning. 90 Tablet 3 08/31/19 23 Active ProAir HFA 108 (90 Base) MCG/ACT Inhalation Aerosol Solution Inhale 2 Puffs by mouth every 4 hours as needed for Cough or Wheezing. 54 g 1 09/06/19 23 Active Aspirin Low Dose 81 MG Oral Tablet Delayed Release (aspirin enteric coated)Indications :Type 2 diabetes mellitus with hemoglobin A1c goal of less than 8.0% (HCC) TAKE 1 TABLET BY MOUTH EVERY DAY 100 Tablet 3 09/28/19 23 Active Famotidine 20 MG Oral Tablet (Pepcid) TAKE 1 TABLET BY MOUTH 2 TIMES A DAY NEEDED FOR HEARTBURN. 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 30 Tablet 0 12/16/19 23 Active Meclizine HCl 25 MG Oral Tablet (Antivert)Indicati ons:Vertigo Take 1 Tablet by mouth 3 times a day as needed for Dizziness. 90 Tablet 3 12/18/19 23 Active Ferrous Sulfate 325 (65 Fe) MG Oral Tablet (Feosol)Indication s:Iron deficiency anemia, unspecified iron deficiency anemia type Take 1 Tablet by mouth every other day. 45 Tablet 3 01/05/20 23 Active Breo Ellipta 200-25 MCG/ACT Inhalation Aerosol Powder Breath Activated INHALE ONE (1) PUFF BY MOUTH IN THE MORNING PLEASE RINSE MOUTH OUT AFTER USE 180 Blister Dosing Unit 3 02/27/20 23 Active levETIRAcetam 500 MG Oral Tablet (Keppra) TAKE ONE (1) TABLET BY MOUTH TWICE DAILY IN THE MORNING AND BEFORE BEDTIME 60 Tablet 11 03/03/20 23 Active Lisinopril 5 MG Oral Tablet (Prinivil)Indicati ons:HTN, goal below 130/80 TAKE 1 TABLET BY MOUTH EVERY DAY IN THE MORNING 90 Tablet 3 03/04/20 23 Active Torsemide 20 MG Oral Tablet (Demadex)Indicatio ns:Chronic diastolic CHF (congestive heart failure) (HCC),Coronary artery disease involving burns paiute coronary artery of burns paiute heart without angina pectoris,Nonrheuma tic aortic valve stenosis,HTN, goal below 140/90 Take 1 Tablet by mouth in the morning. 90 Tablet 3 03/04/20 23 Active Gabapentin 300 MG Oral Capsule (Neurontin) Take 2 tablets three times daily 180 Capsule 1 03/19/20 23 Active Potassium Chloride Yvonne ER 20 MEQ Oral Tablet Extended ReleaseIndications :Edema, unspecified type TAKE 1 TABLET BY MOUTH IN THE MORNING 30 Tablet 5 03/28/20 23 Active Cyclobenzaprine HCl 10 MG Oral Tablet (Flexeril)Indicati ons:Lumbar disc disease TAKE 1 TABLET BY MOUTH IN THE MORNING AND BEFORE BEDTIME 60 Tablet 0 04/01/20 23 Active traZODone HCl 100 MG Oral Tablet (Desyrel) Take 1 Tablet by mouth at bedtime. 90 Tablet 3 04/03/20 23 Active Metoprolol Succinate ER 25 MG Oral Tablet Extended Release 24 Hour (toPROL XL)Indications:HTN , goal below 130/80 TAKE 1 TABLET BY MOUTH EVERY DAY 90 Tablet 3 04/09/20 23 Active Metoprolol Succinate ER 25 MG Oral Tablet Extended Release 24 Hour (toPROL XL) Take 1 Tablet by mouth in the morning. 90 Tablet 1 09/01/19 23 023 Discontinued Hospital, Clinic, or Other Facility Administered Medication Ordered Dose Route Frequency Start Date End Date Status lidocaine 1 % inj 21 mgIndications:Cellulitis of arm, left,Abscess of multiple sites of upper arm 21 mg IJ Daily(AM) 09/20/2017 Active medroxyPROGESTERone acetate (DEPO-PROVERA) inj NORBERTO 150 mgIndications:Surveillance for Depo-Provera contraception 150 mg IM [id number] 09/09/2019 Active documented as of this encounter (statuses as of 04/09/2023) Active Problems Problem Noted Date Diagnosed Date Adrenal adenoma, right 08/10/2022 Overview: 11mm, CT [...] without hepatic coma 018 Overview: 09/13 dx [facility]. Genotype 1A. Confirmed 2021. New since 2015. Hx shared needles. Coronary artery disease invo lving burns paiute heart without angina pectoris 12/19/2016 S/P coronary [...] PCI mid right PDA with single ROJAS [facility]. EF stable 55-60%. Lung nodules inc9mm LLL. ?infection. Consider kaiyln 1mo CT. 11/14 Dr Michael LEDESMA Trazodone 100mg? Suboxone Dr Max Garcia 06/17 incarcerated 01/14 admit [facility]/Ashkan ODvs suicide attempt. 02/13 d/c to [facility] in [place]. 09/13 ICU/intubated-fungal jatgib-rqwnc-Uthiybr dubliniensis. , hand abscess dayna albicans MED [...] as of this encounter (statuses as of 04/09/2023) Resolved Problems Problem Noted Date Diagnosed Date Resolved Date Hydronephrosis, right 12/06/20202020 Acute on chronic diastolic c ongestive heart failure 03/03/2020 08/26/2020 Major depressive disorder, r ecurrent, unspecified 12/30/2019 12/14/2021 Uncomplicated opioid dependence 06/23/2019 03/19/2022 Coronary artery disease invo lving burns paiute coronary artery of burns paiute heart without angina pectoris 06/23/2019 12/14/2021 Encounter for monitoring Sub oxone maintenance therapy 09/24/2018 12/14/2021 Polysubstance abuse 02/26/2018 03/19/20 22 Overview: Fall 2017 rehab [place], etc will establish w/[facility] 02/2018 Suicide attempt [...] Sciatica 03/11/2013 04/11/2021 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 08/07/2010 [...] platelets elevated at 464, [facility] 02/08: Repeat ultrasound is recommended in 3 [...] as of this encounter (statuses as of 04/09/2023) Immunizations Name Administration Dates Next Due COVID-19 mRNA, LNP-s, No Pre serve, 2-Dose Series (Moderna) 09/16/2020 Hepatitis B, 20+ yrs 08/26/2018,10/03/19 18,09/16/2017,12/19(Deferred: Patient Refused),03/02/2016,10/18/2014 Pneumococcal Polysaccharide PPV23 (Pneumovax) 11/28/2005 SEASONAL INFLUENZA, PF, 6 M & Above, IM , (FLULAVAL or FLUZONE) 02/10/2021,01/18/2021(Deferred: Patient Refused),03/03/2020 TDAP (age 10 and [...] encounter Miscellaneous Notes * Telephone Encounter - Spike Teran CRNP - 04/09/2023 7:02 AM EST Signed Prescriptions: Disp Refills Metoprolol Succinate ER 25 MG Oral Tablet *90 Tab*3 Sig: TAKE 1 TABLET BY MOUTH EVERY DAY Authorizing Provider: SPIKE TERAN * Telephone Encounter - Bridget Christie COT - 04/08/2023 8:56 AM ESTPending Prescriptions: Disp Refills Metoprolol Succinate ER 25 MG Oral Tablet *90 Tab*3 Sig: TAKE 1 TABLET BY MOUTH EVERY DAY * Telephone Encounter - Bridget Christie COT - 04/08/2023 8:55 AM EST Did you pend patient's preferred pharmacy and medication before forwarding?yes Pharmacy: [id number] [address] [facility] Pending Prescriptions: Disp Refills Metoprolol Succinate ER 25 MG Oral Tablet*90 Tab*3 Sig: TAKE 1 TABLET BY MOUTH EVERY DAY Last Visit: 12/17/2022 (in office), Visit date not found (telemedicine) Next Visit: 04/19/2023 If no future appointments scheduled, and last appointment is greater than a year ago, please schedule patient for a follow-up appointment Last date the medication was ordered: 08-31-2022 Is this request for a controlled substance?No Urine Drug Screen: Results for orders placed or performed in visit on 11/03/21 TOXICOLOGY, URINE SCREEN W/ CONFIRMATION Result Value Amphetamine Negative Benzodiazepines Negative Cannabinoids Negative Cocaine Metabolite Negative Fentanyl Negative Hydrocodone / Hydromorphone Negative Methadone Metabolite Negative Morphine / Codeine Negative Oxycodone / Oxymorphone Negative Narrative Cutoff Concentrations: Drug Level Amphetamines 500 ng/mL Benzodiazepines 100 ng/mL Cannabinoids 50 ng/mL Cocaine Metabolite 150 ng/mL Fentanyl 1 ng/mL Hydrocodone / Hydromorphone 300 ng/mL Methadone Metabolite 100 ng/mL Morphine / Codeine 300 ng/mL Oxycodone / Oxymorphone 100 ng/mL Screening results are presumptive and can only be used for medical purposes. Positive screening results are reflexed to confirmatory testing. *Note: Due to a large number of results and/or encounters for the requested time period, some results have not been displayed. A complete set of results can be found in Results Review. Patient Phone Numbers mobile [phone] Labs: Lab Results Component Value Date/Time CREAT 1.3 (H) 12/17/2022 03:24 PM CREAT 0.76 11/20/2020 12:00 AM CREAT 0.9 11/04/2019 03:30 PM POTASSIUM 5.0 12/17/2022 03:24 PM POTASSIUM 4.7 11/20/2020 12:00 AM POTASSIUM 4.8 11/04/2019 03:30 PM TSH 1.75 11/03/2021 09:08 AM TSH 0.516 11/16/2020 12:00 AM TSH 0.85 01/26/2009 11:11 AM LDLCALC 70 08/06/2022 03:36 PM LDLCALC 63 08/26/2018 03:42 PM LDLDIRECT 69 10/02/2021 12:06 PM LDLDIRECT 100 05/28/2019 11:10 AM LDLDIRECT 96 05/29/2012 10:49 AM ALT 23 08/06/2022 03:36 PM ALT 453 (A) 09/07/2018 10:35 PM HGBA1C 5.9 (H) 08/06/2022 03:36 PM HGBA1C 6.9 (H) 11/04/2019 03:30 PM documented in this encounter Plan of Treatment Upcoming Encounters Date Type Department Care Team (Late st Contact Info) Description 04/10/2023 11:00 AM EST Office Visit Family Practice [facility] [address] [place] [address] Irvin Iverson MD [address] [place] [address] 04/19/2023 9:30 AM EST Office Visit Cardiology, [facility] [address] [place] [address] Spike Teran CRNP [address] [place] [address] 05/20/2023 2:00 PM EST Office Visit Gynecology/Obstetrics [facility] [address] [place] [address] Hailey Lee CRNP [address] [place] [address] Health Maintenance Due Date Last Done Comments [...] Additional history exists CKD HGB USE SMARTSET 50332 08/07/202308/06, 08/06/2022, 11/03/2021, Additional history exists Mammogram 08/08/2023 08/07/2022 Albumin/Creatinine Ratio 12/18/2023 023, 10/05/2020, 05/28/2019, Additional history exists CKD PHOS USE SMARTSET 31012 12/18/202311/28, 11/20/2020, 09/06/2017 DTaP,Tdap,and Td Vaccines (3 [...] as of this encounter Visit Diagnoses Diagnosis HTN, goal below 130/80- Primary Unspecified essential hypertension documented in this encounter Advance Directives Latest Code Status on File Code Status Date Activated Date Inactivated Comments Full Code 02/15/2010 3:36 AM 02/16/2010 9:42 PM Thi s order reflects the patients wishes and were consensually agreed upon. 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
--- OUTSIDE RECORDS SUMMARY | 2023-04-22 11:18 | External Medical Summary | Summary of Care ---
Author Name Unknown Organization [facility] Address [address] [place] [address] Phone [phone] Care Team Providers Care Fence Manufacture Supervisor Name Role Phone Irvin Iverson MD Primary Care Provider + Reason for Visit * Reason Comments eRx-Medication Refill Encounter Details Date Type Department Care Team ([facility] Contact Info) Description 03/28/2023 Refill Family Practice [facility] [address] [place] [address] Irvin Iverson MD [address] [place] [address] Type 2 diabetes mellitus with hemoglobin A1c goal of less than 8.0% ([facility]) Allergies Active Allergy Reactions Criticality Noted Date Comments Azithromycin Other (Please comment) 03/28/2004 cramps Covid-19 Mrna Vacc (Moderna) 07/24/2021 Severe SOB/ hospitalized. Eggs Or Egg-Derived Products 05/25/2022 Other reaction(s): vomiting Ensure 02/10/2007 Vomiting, diarrhea Mushroom Extract Complex Itching 12/17/2022 Mushrooms Novocain 02/15/2010 hives [place] Extract 05/25/2022 Other reaction(s): Hives Tramadol Seizure High 09/09/2012 documented as of this encounter (statuses as of 03/29/2023) Medications Medication Sig Dispensed Refills Start Date End Date Status LANCET DEVICE MISCIndications:DM type 2, not at goal ([facility]) use as directed - for One Touch Ultra 1 box 5 0 Active Additional Information Patient not taking.Informant: Patient, Reported on 12/17/2022 Blood Glucose Monitoring Suppl (SinDelantal.MxUCH VERIO FLEX SYSTEM) w/Device KIT Use as directed. 0 Active Insulin Syringe-Needle U-100 27G X 1/2" 1 ML Use as directed. 0 Active ONETOUCH DELICA LANCETS 33G MISCIndications:Typ e 2 diabetes mellitus with hemoglobin A1c goal of less than 8.0% (HCC) Test as directed. Pt test 2 times daily. E11.9 100 Each 11 9 Active Additional Information Patient not taking.Informant: Patient, Reported on 12/17/2022 NOVOFINE 32G PEN NEEDLE 32G X 6 MM MISCIndications:Typ e 2 diabetes mellitus with hemoglobin A1c goal of less than 8.0% (HCC) USE ONCE DAILY 100 Each 1 0 Active Additional Information Patient not taking.Informant: Patient, [...] for Wheezing. 300 mL 1 1 Active Topiramate 25 MG Oral Tablet (Topamax)Indication s:Chronic bilateral low back pain with right-sided sciatica Take 1 Tablet by mouth 2 times a day. 60 Tablet 1 2 Active Additional Information Patient not taking.Informant: Patient, Reported on 12/17/2022 OneTouch Ultra Blue In Vitro Strip (Glucose Blood) Test three times daily. Dx E11.9 poorly controlled 300 Strip 3 2 Active Additional Information Patient not taking.Informant: Patient, Reported on 12/17/2022 oxygen IN GASIndications:Noct urnal hypoxemia Use as directed 2 L/min(Oxygen) as needed (via nasal cannula with exertion). titrate to off if SpO2 90-94%. 3 LPM via nasal cannula at bedtime and with all sleep. 1 Each 0 2 Active Spironolactone 25 MG Oral Tablet (Aldactone)Indicati ons:Fatigue, unspecified type Take by mouth 0.5 Tablets in the morning. 90 Tablet 1 2 Active Additional Information Patient not taking.Informant: Patient, Reported on 12/17/2022 medroxyPROGESTERone Acetate 150 MG/ML Intramuscular Suspension (Depo-Provera)Indic ations:Surveillance for Depo-Provera contraception INJECT 1 ML INTRAMUSCULARLY EVERY 3 MONTHS 1 mL 3 2 Active Additional Information Patient not taking.Informant: Patient, Reported on 12/17/2022 Atorvastatin Calcium 80 MG Oral Tablet (Lipitor)Indication s:HTN, goal below 140/80,Coronary artery disease involving [place] heart without angina pectoris, unspecified vessel or lesion type,Nonrheumatic aortic valve stenosis,Dyslipidem ia, goal LDL below 100 Take 1 Tablet by mouth in the morning. 90 Tablet 3 3 Active Escitalopram Oxalate 10 MG Oral Tablet (Lexapro)Indication s:KELLY (generalized anxiety disorder) Take 1 Tablet by mouth in the morning. 90 Tablet 3 3 Active traZODone HCl 50 MG Oral Tablet (Desyrel) Take 1.5 Tablets by mouth at bedtime. 135 Tablet 1 3 Active busPIRone HCl 15 MG Oral Tablet (Buspar) Take 1 Tablet by mouth in the morning and 1 Tablet before bedtime. 180 Tablet 3 3 Active Escitalopram Oxalate 20 MG Oral Tablet (Lexapro)Indication s:Depression with anxiety Take 1 Tablet by mouth in the morning. 90 Tablet 3 3 Active Metoprolol Succinate ER 25 MG Oral Tablet Extended Release 24 Hour (toPROL XL) Take 1 Tablet by mouth in the morning. 90 Tablet 1 3 Active ProAir HFA 108 (90 Base) [...] FOR HEARTBURN. 180 Tablet 2 3 Active Mupirocin 2 % External Ointment (Bactroban) APPLY TOPICALLY TO AFFECTED AREA THREE TIMES A DAY FOR UP TO 14 DAYS 22 g 10 3 Active Additional Information Patient not taking.Informant: Patient, Reported on 12/17/2022 Clopidogrel Bisulfate 75 MG Oral Tablet (pLAVix)Indications :Coronary artery disease involving [place] heart without angina pectoris, unspecified vessel or lesion type,S/P coronary artery stent placement TAKE 1 TABLET BY MOUTH EVERY DAY 90 Tablet 1 3 Active Acetaminophen ER 650 MG Oral Tablet Extended Release (Tylenol 8 Hour)Indications:Ac tolowa dee-ni' nonintractable headache, unspecified headache type Take 1 [...] other day. 45 Tablet 3 3 Active Breo Ellipta 200-25 MCG/ACT Inhalation Aerosol Powder Breath Activated INHALE ONE (1) PUFF BY MOUTH IN THE MORNING PLEASE RINSE MOUTH OUT AFTER USE 180 Blister Dosing Unit 3 3 Active Cyclobenzaprine HCl 10 MG Oral Tablet (Flexeril)Indicatio ns:Lumbar disc disease TAKE 1 TABLET BY MOUTH IN THE MORNING AND BEFORE BEDTIME 60 Tablet 0 3 Active levETIRAcetam 500 MG Oral Tablet (Keppra) TAKE ONE (1) TABLET BY MOUTH TWICE DAILY IN THE MORNING AND BEFORE BEDTIME 60 Tablet 11 3 Active Lisinopril 5 MG Oral Tablet (Prinivil)Indicatio ns:HTN, goal below 130/80 TAKE 1 TABLET BY MOUTH EVERY DAY IN THE MORNING 90 Tablet 3 3 Active Torsemide 20 MG Oral Tablet (Demadex)Indication s:Chronic diastolic CHF (congestive heart failure) (HCC),Coronary artery disease involving [place] coronary artery of [place] heart without angina pectoris,Nonrheumat ic aortic valve [...] THE MORNING 30 Tablet 5 3 Active Hospital, Clinic, or Other Facility Administered Medication Ordered Dose Route Frequency Start Date End Date Status lidocaine 1 % inj 21 mgIndications:Cellulitis of arm, left,Abscess of multiple sites of upper arm 21 mg IJ Daily(AM) 09/20/2017 Active medroxyPROGESTERone acetate (DEPO-PROVERA) inj NORBERTO 150 mgIndications:Surveillance for Depo-Provera contraception 150 mg IM [id number] 09/09/2019 Active documented as of this encounter (statuses as of 03/29/2023) Active Problems Problem Noted Date Diagnosed Date [...] without hepatic coma 018 Overview: 09/13 dx [facility]. Genotype 1A. Confirmed 2021. New since 2015. Hx shared needles. Coronary artery disease invo lving [place] heart without angina pectoris 12/19/2016 S/P coronary [...] PCI mid right PDA with single ROJAS [facility]. EF stable 55-60%. Lung nodules inc9mm LLL. ?infection. Consider kailyn 1mo CT. 11/14 Dr Michael LEDESMA Trazodone 100mg? Suboxone Dr Max Garcia 06/17 incarcerated 01/14 admit [facility]/Ashkan ODvs suicide attempt. 02/13 d/c to [facility] in [place]. 09/13 ICU/intubated-fungal zmrxza-cudbj-Lkrpmqb dubliniensis. , hand abscess dayna albicans MED [...] as of this encounter (statuses as of 03/29/2023) Resolved Problems Problem Noted Date Diagnosed Date Resolved Date Hydronephrosis, right 12/06/20202020 Acute on chronic diastolic c ongestive heart failure 03/03/2020 08/26/2020 Major depressive disorder, r ecurrent, unspecified 12/30/2019 12/14/2021 Uncomplicated opioid dependence 06/23/2019 03/19/2022 Coronary artery disease invo lving [place] coronary artery of [place] heart without angina pectoris 06/23/2019 12/14/2021 Encounter for monitoring Sub oxone maintenance therapy 09/24/2018 12/14/2021 Polysubstance abuse 02/26/2018 03/19/20 22 Overview: Fall 2017 rehab [facility], etc will establish w/[facility] 02/2018 Suicide attempt by drug ingestion 02/20/2018 02/26/2018 Overview: gabapentin Seizure 09/09/2017 07/19/2020 Overview: 09/13 seizure noted. ?prior approx 5ya --placed on gabapentin Homeless 06/14/2017 11/27/2018 Tobacco abuse 04/15/2017 08/12/2017 Systolic murmur 03/04/2016 04/11/2021 Overview: 09/13 [facility]-congential thickening Partial fusion aortica valve, trivial AI, no vegetation. 2012 TTE--mild-mod AR, ?bicuspid. 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 08/07/2010 [...] platelets elevated at 464, repeat CBC at [facility] 02/08: Repeat ultrasound is recommended in [...] as of this encounter (statuses as of 03/29/2023) Immunizations Name Administration Dates Next Due COVID-19 [...] encounter Miscellaneous Notes * Telephone Encounter - Federico Francis RPh - 03/29/2023 8:29 AM ESTRefused Prescriptions: Disp Refills metFORMIN HCl 1000 MG Oral Tablet (Glucoph*60 Tab*10 Sig: TAKE ONE (1) TABLET BY MOUTH TWICE DAILY IN THE MORNING AND BEFORE BEDTIME WITH FOODRefused By: Charanjit FRANCIS for Refusal: Course of treatment complete * Telephone Encounter - Federico Francis RPh - 03/29/2023 8:26 AM EST DC on 12/17 by provider Isidro Cisneros, PharmD Clinical Pharmacist [facility] ([facility]) (Formerly [facility]pharm[facility]) [phone] 03/29/2023 8:28 AM documented in this encounter Plan of Treatment Upcoming Encounters Date Type Department Care Team (Late st Contact Info) Description 04/19/2023 9:30 AM EST Office Visit Cardiology, [facility] [address] [place] [address] Laina Greer CRNP [address] [place] [address] 05/20/2023 2:00 PM EST Office Visit Gynecology/Obstetrics Rose Bender [address] [place] [address] [place], JOSETTE Castillo [address] [place] [address] Scheduled Orders Name Type Priority Associated Diagnoses Orde r Schedule HEMOGLOBIN A1C Lab Routine Type 2 diabetes mellitus with hemoglobin A1c goal of less than 8.0% (HCC) Expected: 03/29/2023 (Approximate), Expires: 03/29/2024 Health Maintenance Due Date Last Done Comments [...] 08/06/2021 DISCUSS TOBACCO CESSATION (REFER TO SMARTSET #2820) 08/04/2022 08/04/2021, 08/28/2017 COVID-19 Vaccine ( season) 2022 09/16/2020 Influenza Vaccine (FLU shot) (#1) 2022 02/10/2021, 03/03/2020 Cologuard 2023 Colonoscopy 2023 Colorectal Cancer Screening 2023 Fecal Occult Blood Test 2023 HbA1c 2023 08/06/2022, 06/0 12/2020, 11/04/2019, Additional history exists Sigmoidoscopy 2023 GFR 06/19/2023 12/17/2022, 04/2 09/2022, 08/06/2022, Additional history exists PAP SMEAR-ANNUAL AGES 18-100 07/26/2023 07/25/2022, 09/24/2017, 07/14/2014, Additional history exists CKD HGB USE SMARTSET 18996 08/07/202308/06, 08/06/2022, 11/03/2021, Additional history exists Mammogram 08/08/2023 08/07/2022 Albumin/Creatinine Ratio 12/18/2023 023, 10/05/2020, 05/28/2019, Additional history exists CKD PHOS USE SMARTSET 93500 12/18/202311/28, 11/20/2020, 09/06/2017 DTaP,Tdap,and Td Vaccines (3 [...] as of this encounter Visit Diagnoses Diagnosis Type 2 diabetes mellitus with hemoglobin A1c goal of less than 8.0% ([facility]) documented in this encounter Advance Directives Latest Code Status on File Code Status Date Activated Date Inactivated Comments Full Code 02/15/2010 3:36 AM 02/16/2010 9:42 PM Thi s order reflects the patients wishes and were consensually agreed upon. Question Answer Comments Discussion of Advance Directives occurred with: Patient Care Teams Fence Manufacture Supervisor Relationship Specialty Start Date End Date Irvin Iverson MD [address] [place] [address] PCP - General Family Medicine 04/02/22 documented as of this encounter
--- OUTSIDE RECORDS SUMMARY | 2023-04-22 11:18 | External Medical Summary | Summary of Care ---
Author Name Unknown Organization [facility] Address [address] [place] [address] Phone [phone] Care Team Providers Care Rehab Spec Name Role Phone Irvin Iverson MD Primary Care Provider + Reason for Visit * Reason Onset Date Comments Med Request 04/03/2023 Encounter Details Date Type Department Care Team ([facility] Contact Info) Description 04/03/2023 Telephone Family Practice [facility] [address] [place] [facility] [place] [address] Irvin Iverson MD [address] [place] [address] Med Request Allergies Active Allergy Reactions Criticality Noted Date Comments Azithromycin Other (Please comment) 03/28/2004 cramps Covid-19 Mrna Vacc (Moderna) 07/24/2021 Severe SOB/ hospitalized. Eggs Or Egg-Derived Products 05/25/2022 Other reaction(s): vomiting Ensure 02/10/2007 Vomiting, diarrhea Mushroom Extract Complex Itching 12/17/2022 Mushrooms Novocain 02/15/2010 hives [place] Extract 05/25/2022 Other reaction(s): Hives Tramadol Seizure High 09/09/2012 documented as of this encounter (statuses as of 04/03/2023) Medications Medication Sig Dispensed Refills Start Date [...] 1 Active Topiramate 25 MG Oral Tablet (Topamax)Indicatio [...] 2 Active Spironolactone 25 MG Oral Tablet (Aldactone)Indicat [...] ns:HTN, goal below 140/80,Coronary artery disease involving [place] heart without angina pectoris, unspecified vessel or [...] Oral Tablet (pLAVix)Indication s:Coronary artery disease involving [place] heart without angina pectoris, unspecified vessel or [...] 180 Blister Dosing Unit 3 3 Active levETIRAcetam 500 MG Oral [...] (congestive heart failure) (HCC),Coronary artery disease involving [place] coronary artery of [place] heart without angina pectoris,Nonrheuma tic aortic valve [...] at bedtime. 90 Tablet 3 3 Active traZODone HCl 50 MG Oral Tablet (Desyrel) Take 1.5 Tablets by mouth at bedtime. 135 Tablet 1 3 04/03/20 23 Discontinu ed(Refill) Hospital, Clinic, or Other Facility Administered Medication Ordered Dose Route Frequency Start Date End Date Status lidocaine 1 % inj 21 mgIndications:Cellulitis of arm, left,Abscess of multiple sites of upper arm 21 mg IJ Daily(AM) 09/20/2017 Active medroxyPROGESTERone acetate (DEPO-PROVERA) inj NORBERTO 150 mgIndications:Surveillance for Depo-Provera contraception 150 mg IM [id number] 09/09/2019 Active documented as of this encounter (statuses as of 04/03/2023) Active Problems Problem Noted Date Diagnosed Date [...] hepatic coma 018 Overview: 09/13 dx [facility]. Genotype 1A. Confirmed 2021. New since 2015. Hx shared needles. Coronary artery disease invo lving [place] heart without angina pectoris 12/19/2016 S/P coronary [...] mid right PDA with single ROJAS [facility]. EF stable 55-60%. Lung nodules inc9mm LLL. ?infection. Consider kailyn 1mo CT. 11/14 Dr Michael LEDESMA Trazodone 100mg? Suboxone Dr Max Garcia 06/17 incarcerated 01/14 admit [facility]/Ashkan ODvs suicide attempt. 02/13 d/c to [facility] in [place]. 09/13 ICU/intubated-fungal fxkfil-hcorc-Cjqduhb dubliniensis. , hand abscess dayna albicans MED [...] as of this encounter (statuses as of 04/03/2023) Resolved Problems Problem Noted Date Diagnosed Date Resolved Date Hydronephrosis, right 12/06/20202020 Acute on chronic diastolic c ongestive heart failure 03/03/2020 08/26/2020 Major depressive disorder, r ecurrent, unspecified 12/30/2019 12/14/2021 Uncomplicated opioid dependence 06/23/2019 03/19/2022 Coronary artery disease invo lving [place] coronary artery of [place] heart without angina pectoris 06/23/2019 12/14/2021 Encounter for monitoring Sub oxone maintenance therapy 09/24/2018 12/14/2021 Polysubstance abuse 02/26/2018 03/19/20 22 Overview: Fall 2017 rehab [facility], etc will establish w/[facility] 02/2018 Suicide attempt [...] Sciatica 03/11/2013 04/11/2021 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 03/31/201211/2014 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 of ant icoagulant therapy [...] platelets [facility] at 464, [facility] Repeat ultrasound is recommended [...] as of this encounter (statuses as of 04/03/2023) Immunizations Name Administration Dates Next Due COVID-19 [...] encounter Miscellaneous Notes * Telephone Encounter - Juliann Zaidi LPN - 04/03/2023 2:21 PM EST Patient aware and verbalized understanding * Telephone Encounter - Irvin Iverson MD - 04/03/2023 1:42 PM EST New rx sent for 1 100mg pill * Telephone Encounter - Meghann Sorensen LPN - 04/03/2023 11:17 AM EST Pending if appropriate for increase * Telephone Encounter - Haylee Dominguez oncology radiation physician - 04/03/2023 9:59 AM EST Pt called requesting refill for trazodone. Pt said she has been taking 2 tabs a night instead of 1.5 tabs. Pt said 1.5 tabs were not working for her but 2 tabs are. Pt was wondering if dr could send in rx for 2 tabs at bedtime. Thanks, Haylee Dominguez Asphalt Surface Heater Operator [facility] ([facility]) 04/03/2023,10:01 AM documented in this encounter Plan of Treatment Upcoming Encounters Date Type Department Care Team (Late st Contact Info) Description 04/19/2023 9:30 AM EST Office Visit Cardiology, [facility] [address] [place] [address] Laina Greer CRNP [address] [place] [address] 05/20/2023 2:00 PM EST Office Visit Gynecology/Obstetrics [facility] [address] [place] [address] Hailey Lee CRNP [address] [place] [address] Health Maintenance Due Date Last Done Comments [...] 08/04/2022 08/04/2021, 08/28/2017 COVID-19 Vaccine (2 - 2022- season) 2022 09/16/2020 Influenza Vaccine (FLU shot) (#1) 2022 02/10/2021, 03/03/2020 Cologuard 2023 Colonoscopy 2023 Colorectal Cancer Screening 2023 Fecal Occult Blood Test 2023 HbA1c 2023 08/06/2022, 06/0 12/2020, 11/04/2019, Additional history exists Sigmoidoscopy 2023 GFR 06/19/2023 12/17/2022, 07/29, 08/06/2022, Additional history exists PAP SMEAR-ANNUAL AGES 18-100 07/26/2023 07/25/2022, 09/24/2017, 07/14/2014, Additional history exists CKD HGB USE SMARTSET 79148 08/07/202308/06, 08/06/2022, 11/03/2021, Additional history exists Mammogram 08/08/2023 08/07/2022 Albumin/Creatinine Ratio 12/18/2023 023, 10/05/2020, 05/28/2019, Additional history exists CKD PHOS USE SMARTSET 99132 12/18/202311/28, 11/20/2020, 09/06/2017 DTaP,Tdap,and Td Vaccines (3 [...] Advance Directives occurred with: Patient Care Teams Rehab Spec Relationship Specialty Start Date End Date Irvin Iverson MD [address] [place] [address] PCP - General Family Medicine 04/02/22 documented as of this encounter
--- OUTSIDE RECORDS SUMMARY | 2023-04-22 11:18 | External Medical Summary | Summary of Care ---
Author Name Unknown Organization [facility] Address [address] [place] [address] Phone [phone] Care Team Providers Care Engine Repair Supervisor Name Role Phone Irvin Kramer MD Primary Care Provider + Reason for Visit * Reason Comments eRx-Medication Refill Encounter Details Date Type Department Care Team ([facility] Contact Info) Description 04/09/2023 Refill Family Practice [facility] [address] [place] [address] Irvin Kramer MD [address] [place] [place] [address] Depression with anxiety Allergies Active Allergy Reactions Criticality Noted Date Comments Azithromycin Other (Please comment) 03/28/2004 cramps Covid-19 Mrna Vacc (Moderna) 07/24/2021 Severe SOB/ hospitalized. Eggs Or Egg-Derived Products 05/25/2022 Other reaction(s): vomiting Ensure 02/10/2007 Vomiting, diarrhea Mushroom Extract Complex Itching 12/17/2022 Mushrooms Novocain 02/15/2010 hives [place] Extract 05/25/2022 Other reaction(s): Hives Tramadol Seizure [...] Reported on 12/17/2022 Blood Glucose Monitoring Suppl ([employer] VERIO FLEX SYSTEM) w/Device KIT Use as [...] E11.9 poorly controlled 300 Strip 3 07/25/19 22 Active Additional Information Patient not taking.Informant: Patient, [...] ns:HTN, goal below 140/80,Coronary artery disease involving ute heart without angina pectoris, unspecified vessel or [...] bedtime. 180 Tablet 3 08/31/19 23 Active ProAir HFA [...] Oral Tablet (pLAVix)Indication s:Coronary artery disease involving ute heart without angina pectoris, unspecified vessel or [...] (Demadex)Indicatio ns:Chronic diastolic CHF (congestive heart failure) ([facility]),Coronary artery disease involving ute coronary artery of ute heart without angina pectoris,Nonrheuma tic aortic valve [...] DAY 90 Tablet 3 04/09/20 23 Active Escitalopram Oxalate 20 MG Oral Tablet (Lexapro)Indicatio ns:Depression with anxiety TAKE 1 TABLET BY MOUTH EVERY DAY 90 Tablet 1 04/09/20 23 Active Escitalopram Oxalate 20 MG Oral Tablet (Lexapro)Indicatio ns:Depression with anxiety Take 1 Tablet by mouth in the morning. 90 Tablet 3 08/31/19 23 023 Discontinued Hospital, Clinic, or Other Facility Administered Medication Ordered Dose Route Frequency Start Date End Date Status lidocaine 1 % inj 21 mgIndications:Cellulitis of arm, left,Abscess of multiple sites of upper arm 21 mg IJ Daily(AM) 09/20/2017 Active medroxyPROGESTERone acetate (DEPO-PROVERA) inj NORBERTO 150 mgIndications:Surveillance for Depo-Provera contraception 150 mg IM [id number] 09/09/2019 Active documented as of this encounter [...] needles. Coronary artery disease invo lving ute heart without angina pectoris 12/19/2016 S/P coronary [...] Consider kailyn 1mo CT. 11/14 Dr Michael VERGARA Trazodone 100mg? Suboxone Dr Max Garcia 06/17 incarcerated 01/14 admit [facility] [facility] suicide attempt. 02/13 d/c to [facility] in [place]. 09/13 ICU/intubated-fungal jduijq-pebep-Xumdroq dubliniensis. , hand abscess dayna albicans MED [...] 03/19/2022 Coronary artery disease invo lving ute coronary artery of ute heart without angina pectoris 06/23/2019 12/14/2021 Encounter for monitoring Sub oxone maintenance therapy 09/24/2018 12/14/2021 Polysubstance abuse 02/26/2018 03/19/20 22 Overview: Fall 2017 rehab [facility], etc will establish w/[facility] 02/2018 Suicide attempt [...] Sciatica 03/11/2013 04/11/2021 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 03/31/201211/2014 [facility] current use of ant icoagulant therapy 08/07/2010 [...] platelets elevated at 464, [facility]: Repeat ultrasound is recommended in 3 [...] encounter Miscellaneous Notes * Telephone Encounter - Jian Thakur RPh - 04/09/2023 1:46 PM ESTSigned Prescriptions: Disp Refills Escitalopram Oxalate 20 MG Oral Tablet (Le*90 Tab*1 Sig: TAKE 1 TABLET BY MOUTH EVERY DAYAuthorizing Provider: IRVIN KRAMEROrdergabbie User: JIAN THAKUR------ documented in this encounter Plan of Treatment Upcoming Encounters Date Type Department Care Team (Late st Contact Info) Description 04/10/2023 11:00 AM EST Office Visit Family Practice [facility] [address] [address] Irvin Kramer MD [address] [place] [address] 04/19/2023 9:30 AM EST Office Visit Cardiology, [facility] [address] [address] Laina Greer CRNP [address] [address] 05/20/2023 2:00 PM EST Office Visit Gynecology/Obstetrics [facility] [address] [place] [address] Back[place], Hailey BrownJOSETTE [address] [place] [address] Health Maintenance Due Date Last Done Comments [...] Additional history exists CKD HGB USE SMARTSET 00041 08/07/202308/06, 08/06/2022, 11/03/2021, Additional history exists Mammogram 08/08/2023 08/07/2022 Albumin/Creatinine Ratio 12/18/2023 023, 10/05/2020, 05/28/2019, Additional history exists CKD PHOS USE SMARTSET 67853 12/18/202311/28, 11/20/2020, 09/06/2017 DTaP,Tdap,and Td Vaccines (3 [...] as of this encounter Visit Diagnoses Diagnosis Depression with anxiety Dysthymic disorder documented in this encounter Advance Directives Latest Code Status on File Code Status Date Activated Date Inactivated Comments Full Code 02/15/2010 3:36 AM 02/16/2010 9:42 PM Thi s order reflects the patients wishes and were consensually agreed upon. Question Answer Comments Discussion of Advance Directives occurred with: Patient Care Teams Engine Repair Supervisor Relationship Specialty Start Date End Date Irvin Kramer MD [address] [facility] [place] [address] PCP - General Family Medicine 04/02/22 documented as of this encounter
--- OUTSIDE RECORDS SUMMARY | 2023-04-22 11:18 | External Medical Summary | Summary of Care ---
Author Name Unknown Organization [facility] Address [address] [place] [address] Phone [phone] Care Team Providers Care Fixer Supervisor Name Role Phone Irvin Iverson MD Primary Care Provider + Reason for Visit * Reason Onset Date Comments Medication Question 04/10/2023 Encounter Details Date Type Department Care Team ([facility] Contact Info) Description 04/10/[address] [facility] [address] [place] [address] Gloria Florez PA-C [address] [place] [address] Medication Question Allergies Active Allergy Reactions Criticality Noted Date Comments Azithromycin Other (Please comment) 03/28/2004 cramps Covid-19 Mrna Vacc (Moderna) 07/24/2021 Severe SOB/ hospitalized. Eggs Or Egg-Derived Products 05/25/2022 Other reaction(s): vomiting Ensure 02/10/2007 Vomiting, diarrhea Mushroom Extract Complex Itching 12/17/2022 Mushrooms Novocain 02/15/2010 hives [place] Extract 05/25/2022 Other reaction(s): Hives Tramadol Seizure [...] :HTN, goal below 140/80,Coronary artery disease involving [place] heart without angina pectoris, unspecified vessel or [...] hemoglobin A1c goal of less than 8.0% ([facility]) TAKE 1 TABLET BY MOUTH EVERY DAY 100 Tablet 3 09/27/2022 Active Famotidine 20 MG Oral Tablet (Pepcid) TAKE 1 TABLET BY MOUTH 2 TIMES A DAY NEEDED FOR HEARTBURN. 180 Tablet 2 09/27/2022 Active Clopidogrel Bisulfate 75 MG Oral Tablet (pLAVix)Indications: Coronary artery disease involving [place] heart without angina pectoris, unspecified vessel or [...] (congestive heart failure) (HCC),Coronary artery disease involving [place] coronary artery of [place]ashik heart without angina pectoris,Nonrheumati c aortic valve [...] mgIndications:Surveillance for Depo-Provera contraception 150 mg IM [id number] 09/09/2019 Active documented as of this encounter [...] hepatic coma 018 Overview: 09/13 dx [facility]. Genotype 1A. Confirmed 2021. New since 2015. Hx shared needles. Coronary artery disease invo lving [place] heart without angina pectoris 12/19/2016 S/P coronary [...] mid right PDA with single ROJAS [facility]. EF stable 55-60%. Lung nodules inc9mm LLL. ?infection. Consider kailyn 1mo CT. 11/14 Dr Michael LEDESMA Trazodone 100mg? Suboxone Dr Max Garcia 06/17 incarcerated 01/14 admit [facility] ODvs suicide attempt. 02/[facility] [place] 09/13 ICU/intubated-fungal uisctg-snkyb-Qlpxojg dubliniensis. , hand abscess dayna albicans MED [...] 06/23/2019 03/19/2022 Coronary artery disease invo lving [place] coronary artery of ugashik heart without angina pectoris 06/23/2019 12/14/2021 Encounter for monitoring Sub oxone maintenance therapy 09/24/2018 12/14/2021 Polysubstance abuse 02/26/2018 03/19/20 Overview: Fall 2017 rehab [place]-meth, etc will establish w/[facility] 02/2018 Suicide attempt by drug ingestion 02/20/2018 02/26/2018 Overview: gabapentin Seizure 09/09/2017 07/19/2020 Overview: 09/13 seizure noted. ?prior approx 5ya --placed on gabapentin Homeless 06/14/2017 11/27/2018 Tobacco abuse 04/15/2017 08/12/2017 Systolic murmur 03/04/2016 04/11/2021 Overview: 09/13 [facility]-congential thickening Partial fusion aortica valve, trivial AI, no vegetation. 2012 [facility]TE--mild-mod AR, ?bicuspid. 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/2014 [facility] current use of ant icoagulant therapy 08/07/2010 [...] elevated at 464, repeat CBC at [facility] 02/08: Repeat ultrasound is recommended in [...] Notes * Telephone Encounter - Chrissy Dunbar [facility] - 04/10/2023 12:06 PM EST Pt had [...] and advise. Pt can be contacted at [phone]. Thank you, Chrissy Dunbar, PharmD Clinical Pharmacist [facility] ([facility]) (formerly Telepharmacy) [phone] 04/10/2023, 12:12 PM * Telephone Encounter - Radha Leija CPhT - 04/10/2023 11:57 AM EST Pt calling in to request a dose change on their Gabapentin. Current dose: 300 mg Requested dose: 800 mg Reason for request: not working Preferred pharmacy: [id number] Warm-transferred pt to pharmacist for consultation. Thank you, Radha Leija Bindery Supervisor [facility] ([facility]) (formerly Telepharmacy) 04/10/2023, 11:57 AM documented in this encounter Plan of Treatment Upcoming Encounters Date Type Department Care Team (Late st Contact Info) Description 04/19/2023 9:30 AM EST [facility] [place] [address] Laina Greer CRNP [address] [address] 05/20/2023 2:00 PM EST Office Visit Gynecology/Obstetrics [facility] [address] [place] [address] Hailey Lee CRNP [address] [place] [address] 11/11/2023 11:00 AM EDT Office Visit Family Practice [facility] [address] [place] [address] Irvin Iverson MD [address] [place] [address] Health Maintenance Due Date Last Done Comments [...] 08/06/2021 DISCUSS TOBACCO CESSATION (REFER TO SMARTSET #8824) 08/04/2022 08/04/2021, 08/28/2017 COVID-19 Vaccine (2 - [...] Additional history exists CKD HGB USE SMARTSET 35853 08/07/202308/06, 08/06/2022, 11/03/2021, Additional history exists Mammogram 08/08/2023 08/07/2022 Albumin/Creatinine Ratio 12/18/2023 023, 10/05/2020, 05/28/2019, Additional history exists CKD PHOS USE SMARTSET 88907 12/18/202311/28, 11/20/2020, 09/06/2017 DTaP,Tdap,and Td Vaccines (3 [...] Advance Directives occurred with: Patient Care Teams Fixer Supervisor Relationship Specialty Start Date End Date Irvin Iverson MD [address] [place] [address] PCP - General Family Medicine 04/02/22 documented as of this encounter
--- OUTSIDE RECORDS SUMMARY | 2023-04-22 11:18 | External Medical Summary | Summary of Care ---
Author Name Unknown Organization [facility] Address [address] [place] [address] Phone [phone] Care Team Providers Care Financial Rep Name Role Phone Irvin Kramer MD Primary Care Provider + Reason for Visit * Reason Comments eRx-Medication Refill Encounter Details Date Type Department Care Team ([facility] Contact Info) Description 03/26/2023 Refill Family Practice [facility] [address] [place] [address] Irvin Kramer MD [address] [place] [address] Edema, unspecified type Allergies Active Allergy Reactions Criticality Noted Date Comments Azithromycin Other (Please comment) 03/28/2004 cramps Covid-19 Mrna Vacc (Moderna) 07/24/2021 Severe SOB/ hospitalized. Eggs Or Egg-Derived Products 05/25/2022 Other reaction(s): vomiting Ensure 02/10/2007 Vomiting, diarrhea Mushroom Extract Complex Itching 12/17/2022 Mushrooms Novocain 02/15/2010 hives [place] Extract 05/25/2022 Other reaction(s): Hives Tramadol Seizure High 09/09/2012 documented as of this encounter (statuses as of 03/28/2023) Medications Medication Sig Dispensed Refills Start Date [...] ns:HTN, goal below 140/80,Coronary artery disease involving [place] heart without angina pectoris, unspecified vessel or lesion type,Nonrheumatic aortic valve stenosis,Dyslipide nguyen, goal LDL below 100 Take 1 Tablet by mouth in the morning. 90 Tablet 3 08/31/19 23 Active Escitalopram Oxalate 10 MG Oral Tablet (Lexapro)Indicatio ns:KELLY (generalized anxiety disorder) Take 1 Tablet by mouth in the morning. 90 Tablet 3 08/31/19 23 Active traZODone HCl 50 MG Oral Tablet (Desyrel) Take 1.5 Tablets by mouth at bedtime. 135 Tablet 1 08/31/19 23 Active busPIRone HCl 15 MG Oral Tablet (Buspar) Take 1 Tablet by mouth in the morning and 1 Tablet before bedtime. 180 Tablet 3 08/31/19 23 Active Escitalopram Oxalate 20 MG Oral Tablet (Lexapro)Indicatio ns:Depression with anxiety Take 1 Tablet by mouth in the morning. 90 Tablet 3 08/31/19 23 Active Metoprolol Succinate ER 25 MG Oral Tablet Extended Release 24 Hour (toPROL XL) Take 1 Tablet by mouth in the morning. 90 Tablet 1 09/01/19 23 Active ProAir HFA 108 (90 Base) [...] Oral Tablet (pLAVix)Indication s:Coronary artery disease involving [place] heart without angina pectoris, unspecified vessel or [...] Blister Dosing Unit 3 02/27/20 23 Active Cyclobenzaprine HCl 10 MG Oral Tablet (Flexeril)Indicati ons:Lumbar disc disease TAKE 1 TABLET BY MOUTH IN THE MORNING AND BEFORE BEDTIME 60 Tablet 0 03/01/20 23 Active levETIRAcetam 500 MG Oral Tablet [...] (congestive heart failure) (HCC),Coronary artery disease involving [place] coronary artery of [place] heart without angina pectoris,Nonrheuma tic aortic valve [...] MORNING 30 Tablet 5 03/28/20 23 Active Potassium Chloride Yvonne ER 20 MEQ Oral Tablet Extended Release (Klor-Con M20)Indications:Ed donald, unspecified type Take 1 Tablet by mouth in the [...] mgIndications:Surveillance for Depo-Provera contraception 150 mg IM [id number] 09/09/2019 Active documented as of this encounter (statuses as of 03/28/2023) Active Problems Problem Noted Date Diagnosed Date [...] hepatic coma 018 Overview: 09/13 dx [facility]. Genotype 1A. Confirmed 2021. New since 2015. Hx shared needles. Coronary artery disease invo lving [place] heart without angina pectoris 12/19/2016 S/P coronary [...] mid right PDA with single ROJAS [facility]. EF stable 55-60%. Lung nodules inc9mm LLL. ?infection. Consider kailyn 1mo CT. 11/14 Dr Michael LEDESMA Trazodone 100mg? Suboxone Dr Max Garcia 06/17 incarcerated 01/14 admit [facility] ODvs suicide attempt. 02/13 [facility] [place] 09/13 ICU/intubated-fungal pszkff-hejjg-Zvbnafk dubliniensis. , hand abscess dayna albicans MED [...] as of this encounter (statuses as of 03/28/2023) Resolved Problems Problem Noted Date Diagnosed Date Resolved Date Hydronephrosis, right 12/06/20202020 Acute on chronic diastolic c ongestive heart failure 03/03/2020 08/26/2020 Major depressive disorder, r ecurrent, unspecified 12/30/2019 12/14/2021 Uncomplicated opioid dependence 06/23/2019 03/19/2022 Coronary artery disease invo lving [place] coronary artery of [place]obscot heart without angina pectoris 06/23/2019 12/14/2021 Encounter for monitoring Sub oxone maintenance therapy 09/24/2018 12/14/2021 Polysubstance abuse 02/26/2018 03/19/20 Overview: Fall 2017 rehab [place]-meth, etc will establish w[facility] 02/2018 Suicide attempt [...] Sciatica 03/11/2013 04/11/2021 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 03/31/201211/2014 [facility] current use of ant icoagulant therapy 08/07/2010 [...] platelets elevated at 464, repeat CBC [facility] 02/08: Repeat ultrasound is recommended in 3 [...] as of this encounter (statuses as of 03/28/2023) Immunizations Name Administration Dates Next Due COVID-19 [...] encounter Miscellaneous Notes * Telephone Encounter - Irvin Kramer MD - 03/28/2023 9:38 PM ESTSigned Prescriptions: Disp Refills Potassium Chloride Yvonne ER 20 MEQ Oral Tab*30 Tab*5 Sig: TAKE 1 TABLET BY MOUTH IN THE MORNING Authorizing Provider: IRVIN KRAMER * Telephone Encounter - Elyssa Olivares LPN - 03/28/2023 8:56 AM EST Awaiting pt to get labs prior to med refills * Telephone Encounter - Justina Valverde CPhT - 03/27/2023 4:46 PM EST Received message from [facility] regarding patient needing labs. Placed call to patient to advise. Left message on voicemail advising of required labs Thank you, Justina Valverde Dealer Sales Manager III [facility] ([facility]) (formerly Telepharmacy) 03/27/2023, 4:46 PM * Telephone Encounter - Aurora Kumar [facility] - 03/27/2023 1:02 PM EST Pending Prescriptions: Disp Refills Potassium Chloride Yvonne ER 20 MEQ Oral Tab*30 Tab* Sig: TAKE 1 TABLET BY MOUTH IN THE MORNING * Telephone Encounter - Aurora Kumar [facility] - 03/27/2023 1:01 PM EST Unable to authorize medication refills for pended medication(s) at this time. Per refill protocol patient should have repeat BMP on file per cardio since Torsemide restart (12/18/2022). Reviewed AMP report, Care Gaps/Health Maintenance, medications list, and for any routine labs typically ordered for this patient. Lab orders placed. Please contact patient to advise of labs ordered for blood draw. Fasting is not required. Advise toobtain labs before requesting the next refill. Thank you, Aurora Kumar, PharmD Clinical Pharmacist [facility] ([facility]) (formerly Telepharmacy) 03/27/23 1:01 PM [phone] * Telephone Encounter - Aurora Kumar [facility] - 03/27/2023 1:00 PM EST Did you pend patient's preferred pharmacy and medication before forwarding?yes Pharmacy: [id number] [address] [facility] Pending Prescriptions: Disp Refills Potassium Chloride Yvonne ER 20 MEQ Oral Ta*30 Tab* Sig: TAKE 1 TABLET BY MOUTH IN THE MORNING Last Visit: 12/17/2022 (in office), 12/15/2021 (telemedicine) Next Visit: Visit date not found If no future appointments scheduled, and last appointment is greater than a year ago, please schedule patient for a follow-up appointment Last date the medication was ordered: 195204 Is this request for a controlled substance?No [...] found in Results Review. Patient Phone Numbers Labs: Lab Results Component Value Date/Time CREAT [...] 04/19/2023 9:30 AM EST Office Visit Cardiology, [facility] [address] [place] [address] Laina Greer CRNP [address] [place] [address] 05/20/2023 2:00 PM EST Office Visit Gynecology/Obstetrics [facility] [address] [place] [address] Hailey Lee CRNP [address] [place] [address] Health Maintenance Due Date Last Done Comments [...] 08/06/2021 DISCUSS TOBACCO CESSATION (REFER TO SMARTSET #2481) 08/04/2022 08/04/2021, 08/28/2017 COVID-19 Vaccine ( - [...] Additional history exists CKD HGB USE SMARTSET 42259 08/07/202308/06, 08/06/2022, 11/03/2021, Additional history exists Mammogram 08/08/2023 08/07/2022 Albumin/Creatinine Ratio 12/18/2023 023, 10/05/2020, 05/28/2019, Additional history exists CKD PHOS USE SMARTSET 26217 12/18/202311/28, 11/20/2020, 09/06/2017 DTaP,Tdap,and Td Vaccines (3 [...] as of this encounter Visit Diagnoses Diagnosis Edema, unspecified type documented in this encounter Advance Directives Latest Code Status on File Code Status Date Activated Date Inactivated Comments Full Code 02/15/2010 3:36 AM 02/16/2010 9:42 PM Thi s order reflects the patients wishes and were consensually agreed upon. Question Answer Comments Discussion of Advance Directives occurred with: Patient Care Teams Financial Rep Relationship Specialty Start Date End Date Irvin Kramer MD [address] [place] [address] PCP - General Family Medicine 04/02/22 documented as of this encounter
--- OUTSIDE RECORDS SUMMARY | 2023-04-22 11:18 | External Medical Summary | Summary of Care ---
Author Name Unknown Organization [facility] Address [address] [place] [address] Phone [phone] Care Team Providers Care Workers Compensation Examiner Name Role Phone Irvin Kramer MD Primary Care Provider + Reason for Visit * Reason Comments eRx-Medication Refill Encounter Details Date Type Department Care Team ([facility] Contact Info) Description 03/30/2023 Refill Family Practice [facility] [address] [place] [address] Irvin Kramer MD [address] [facility] [address] Lumbar disc disease Allergies Active Allergy Reactions Criticality Noted Date Comments Azithromycin Other (Please comment) 03/28/2004 cramps Covid-19 Mrna Vacc (Moderna) 07/24/2021 Severe SOB/ hospitalized. Eggs Or Egg-Derived Products 05/25/2022 Other reaction(s): vomiting Ensure 02/10/2007 Vomiting, diarrhea Mushroom Extract Complex Itching 12/17/2022 Mushrooms Novocain 02/15/2010 hives [place] Extract 05/25/2022 Other reaction(s): Hives Tramadol Seizure High 09/09/2012 documented as of this encounter (statuses as of 04/01/2023) Medications Medication Sig Dispensed Refills Start Date [...] ns:HTN, goal below 140/80,Coronary artery disease involving [place] heart without angina pectoris, unspecified vessel or [...] Oral Tablet (pLAVix)Indication s:Coronary artery disease involving [place] heart without angina pectoris, unspecified vessel or [...] (congestive heart failure) (HCC),Coronary artery disease involving [place] coronary artery of [place] heart without angina pectoris,Nonrheuma tic aortic valve [...] BEDTIME 60 Tablet 0 04/01/20 23 Active Cyclobenzaprine HCl 10 MG Oral Tablet (Flexeril)Indicati ons:Lumbar disc disease TAKE 1 TABLET BY MOUTH IN THE MORNING AND BEFORE BEDTIME 60 Tablet 0 03/01/20 23 023 Discontinued Hospital, Clinic, or Other Facility Administered Medication Ordered Dose Route Frequency Start Date End Date Status lidocaine 1 % inj 21 mgIndications:Cellulitis of arm, left,Abscess of multiple sites of upper arm 21 mg IJ Daily(AM) 09/20/2017 Active medroxyPROGESTERone acetate (DEPO-PROVERA) inj NORBERTO 150 mgIndications:Surveillance for Depo-Provera contraception 150 mg IM [id number] 09/09/2019 Active documented as of this encounter (statuses as of 04/01/2023) Active Problems Problem Noted Date Diagnosed Date [...] hepatic coma 018 Overview: 09/13 dx [facility]. Genotype 1A. Confirmed 2021. New since 2015. Hx shared needles. Coronary artery disease invo lving [place] heart without angina pectoris 12/19/2016 S/P coronary [...] mid right PDA with single ROJAS [facility]. EF stable 55-60%. Lung nodules inc9mm LLL. ?infection. Consider kailyn 1mo CT. 11/14 Dr Michael LEDESMA Trazodone 100mg? Suboxone Dr Max Garcia 06/17 incarcerated 01/14 admit [facility]/Ashkan ODvs suicide attempt. 02/13 d/c to [facility] in [place]. 09/13 ICU/intubated-fungal tizmea-gblfk-Hcdtuub dubliniensis. , hand abscess dayna albicans MED [...] as of this encounter (statuses as of 04/01/2023) Resolved Problems Problem Noted Date Diagnosed Date Resolved Date Hydronephrosis, right 12/06/20202020 Acute on chronic diastolic c ongestive heart failure 03/03/2020 08/26/2020 Major depressive disorder, r ecurrent, unspecified 12/30/2019 12/14/2021 Uncomplicated opioid dependence 06/23/2019 03/19/2022 Coronary artery disease invo lving [place] coronary artery of [place] heart without angina pectoris 06/23/2019 12/14/2021 Encounter for monitoring Sub oxone maintenance therapy 09/24/2018 12/14/2021 Polysubstance abuse 02/26/2018 03/19/20 22 Overview: Fall 2017 rehab [place], etc will establish w[facility] 02/2018 Suicide attempt [...] Sciatica 03/11/2013 04/11/2021 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 03/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 of ant icoagulant [...] platelets elevated at 464, repeat CBC at [facility] 02/08: Repeat ultrasound is recommended in [...] as of this encounter (statuses as of 04/01/2023) Immunizations Name Administration Dates Next Due COVID-19 [...] Telephone Encounter - Irvin Kramer MD - 04/01/2023 10:48 PM EST Signed Prescriptions: Disp Refills Cyclobenzaprine HCl 10 MG Oral Tablet (Fle*60 Tab*0 Sig: TAKE 1 TABLET BY MOUTH IN THE MORNING AND BEFORE BEDTIME Authorizing Provider: IRVIN KRAMER * Telephone Encounter - Elyssa Olivares LPN - 04/01/2023 8:28 AM ESTPending Prescriptions: Disp Refills Cyclobenzaprine HCl 10 MG Oral Tablet [Pha*60 Tab*0 Sig: TAKE 1 TABLET BY MOUTH IN THE MORNING AND BEFORE BEDTIME * Telephone Encounter - Elyssa Olivares LPN - 04/01/2023 8:27 AM EST Did you pend patient's preferred pharmacy and medication before forwarding?yes Pharmacy: [id number] Pending Prescriptions: Disp Refills Cyclobenzaprine HCl 10 MG Oral Tablet (Fl*60 Tab*0 Sig: TAKE 1 TABLET BY MOUTH IN THE MORNING AND BEFORE BEDTIME Last Visit: 12/17/2022 (in office), 12/15/2021 (telemedicine) Next Visit: Visit date not found If no future appointments scheduled, and last appointment is greater than a year ago, please schedule patient for a follow-up appointment Last date the medication was ordered: 03/01/2023 Is this request for a controlled substance?No [...] PM HGBA1C 6.9 (H) 11/04/2019 03:30 PM * Telephone Encounter - Pipe [place] - 03/30/2023 1:23 PM ESTPending Prescriptions: Disp Refills Cyclobenzaprine HCl 10 MG Oral Tablet [Pha*60 Tab*0 Sig: TAKE 1TABLET BY MOUTH IN THE MORNING AND BEFORE BEDTIME documented in this encounter Plan of Treatment Upcoming Encounters Date Type Department Care Team (Late st Contact Info) Description 04/19/2023 9:30 AM EST Office Visit Cardiology, [facility] [address] [address] Laina Greer CRNP [address] [address] 05/20/2023 2:00 PM EST Office Visit Gynecology/Obstetrics [facility] [address] [address] Hailey Lee CRNP [address] [place] [address] Health Maintenance Due Date Last Done Comments [...] 08/06/2021 DISCUSS TOBACCO CESSATION (REFER TO SMARTSET #9372) 08/04/2022 08/04/2021, 08/28/2017 COVID-19 Vaccine ( - [...] Additional history exists CKD HGB USE SMARTSET 89848 08/07/202308/06, 08/06/2022, 11/03/2021, Additional history exists Mammogram 08/08/2023 08/07/2022 Albumin/Creatinine Ratio 12/18/2023 023, 10/05/2020, 05/28/2019, Additional history exists CKD PHOS USE SMARTSET 43729 12/18/20232 04/2022, 11/20/2020, 09/06/2017 DTaP,Tdap,and Td Vaccines (3 [...] as of this encounter Visit Diagnoses Diagnosis Lumbar disc disease Other and unspecified disc disorder of lumbar region documented in this encounter Advance Directives Latest Code Status on File Code Status Date Activated Date Inactivated Comments Full Code 02/15/2010 3:36 AM 02/16/2010 9:42 PM Thi s order reflects the patients wishes and were consensually agreed upon. Question Answer Comments Discussion of Advance Directives occurred with: Patient Care Teams Workers Compensation Examiner Relationship Specialty Start Date End Date Irvin Kramer MD [address] [place] [address] PCP - General Family Medicine 04/02/22 documented as of this encounter
--- OUTSIDE RECORDS SUMMARY | 2023-04-22 11:18 | External Medical Summary | Summary of Care ---
Author Name Unknown Organization [facility] Address [address] [place] [address] Phone [phone] Care Team Providers Care Boiler Reliner Name Role Phone Irvin Iverson MD Primary Care Provider + Reason for Visit * Reason Onset Date Comments Medication Refill 03/18/2023 Encounter Details Date Type Department Care Team ([facility] st Contact Info) Description 03/18/2023 [facility]ill [facility] [address] [place] [address] Gloria Florez PA-C [address] [place] [address] Allergies Active Allergy Reactions Criticality Noted Date Comments Azithromycin Other (Please comment) 03/28/2004 cramps Covid-19 Mrna Vacc (Moderna) 07/24/2021 Severe SOB/ hospitalized. Eggs Or Egg-Derived Products 05/25/2022 Other reaction(s): vomiting Ensure 02/10/2007 Vomiting, diarrhea Mushroom Extract Complex Itching 12/17/2022 Mushrooms Novocain 02/15/2010 hives [place] Extract 05/25/2022 Other reaction(s): Hives Tramadol Seizure High 09/09/2012 documented as of this encounter (statuses as of 03/19/2023) Medications Medication Sig Dispensed Refills Start Date [...] ns:HTN, goal below 140/80,Coronary artery disease involving [place] heart without angina pectoris, unspecified vessel or [...] the morning. 90 Tablet 3 3 Active Potassium Chloride Yvonne ER 20 MEQ Oral Tablet Extended Release (Klor-Con M20)Indications:Ed donald, unspecified type Take 1 Tablet by mouth in the morning. 90 Tablet 1 3 Active Metoprolol Succinate ER 25 MG [...] hemoglobin A1c goal of less than 8.0% ([facility]) TAKE 1 TABLET BY [...] Oral Tablet (pLAVix)Indication s:Coronary artery disease involving [place] heart without angina pectoris, unspecified vessel or [...] (congestive heart failure) (HCC),Coronary artery disease involving [place] coronary artery of gray[place] heart without angina pectoris,Nonrheuma tic aortic valve stenosis,HTN, goal below 140/90 Take 1 Tablet by mouth in the morning. 90 Tablet 3 3 Active Gabapentin 300 MG Oral Capsule (Neurontin) Take 2 tablets three times daily 180 Capsule 1 3 Active Gabapentin 300 MG Oral Capsule (Neurontin) Take 2 tablets three times daily 180 Capsule 1 3 03/18/20 23 Discontinu ed(Refill) Hospital, Clinic, or Other Facility Administered Medication Ordered Dose Route Frequency Start Date End Date Status lidocaine 1 % inj 21 mgIndications:Cellulitis of arm, left,Abscess of multiple sites of upper arm 21 mg IJ Daily(AM) 09/20/2017 Active medroxyPROGESTERone acetate (DEPO-PROVERA) inj NORBERTO 150 mgIndications:Surveillance for Depo-Provera contraception 150 mg IM [id number] 09/09/2019 Active documented as of this encounter (statuses as of 03/19/2023) Active Problems Problem Noted Date Diagnosed Date [...] without hepatic coma 018 Overview: 09/13 dx [facility]. Genotype 1A. Confirmed 2021. New since 2015. Hx shared needles. Coronary artery disease invo lving grayling heart without angina pectoris 12/19/2016 S/P coronary [...] PCI mid right PDA with single ROJAS [facility]. EF stable 55-60%. Lung nodules inc9mm LLL. ?infection. Consider kailyn 1mo CT. 11/14 Dr Michael LEDESMA Trazodone 100mg? Suboxone Dr Max Garcia 06/17 incarcerated 01/14 admit [facility]/Ashkan ODvs suicide attempt. 02/13 d/c to [facility] in [place]. 09/13 ICU/intubated-fungal tnzyav-azmso-Lahquzr dubliniensis. , hand abscess dayna albicans MED [...] as of this encounter (statuses as of 03/19/2023) Resolved Problems Problem Noted Date Diagnosed Date Resolved Date Hydronephrosis, right 12/06/20202020 Acute on chronic diastolic c ongestive heart failure 03/03/2020 08/26/2020 Major depressive disorder, r ecurrent, unspecified 12/30/2019 12/14/2021 Uncomplicated opioid dependence 06/23/2019 03/19/2022 Coronary artery disease invo lving [place] coronary artery of gray[place] heart without angina pectoris 06/23/2019 12/14/2021 Encounter for monitoring Sub oxone maintenance therapy 09/24/2018 12/14/2021 Polysubstance abuse 02/26/2018 03/19/20 22 Overview: Fall 2017 rehab [place]-[facility], etc will establish w/[facility] 02/2018 Suicide attempt [...] 03/11/2013 04/11/2021 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 03/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 Repeat ultrasound is recommended in [...] as of this encounter (statuses as of 03/19/2023) Immunizations Name Administration Dates Next Due COVID-19 [...] encounter Miscellaneous Notes * Telephone Encounter - Gifty Oliver PA-C - 03/19/2023 12:27 PM ESTSigned Prescriptions: Disp Refills Gabapentin 300 MG Oral Capsule (Neurontin) 180 Ca*1 Sig: Take 2 tablets three times daily Authorizing Provider: GIFTY OLIVER * Telephone Encounter - Ifeoma Dinero, associate director of nursing - 03/19/2023 11:23 AM EST Did you pend patient's preferred pharmacy and medication before forwarding?yes Pharmacy: [id number] [place] Pending Prescriptions: Disp Refills Gabapentin 300 MG Oral Capsule (Neurontin)180 Ca*1 Sig: Take 2 tablets three times daily Last Visit: 08/15/2022 (in office), Visit date not found (telemedicine) Next Visit: Visit date not found If no future appointments scheduled, and last appointment is greater than a year ago, please schedule patient for a follow-up appointment Last date the medication was ordered: 01/21/23 Is this request for a controlled substance?No [...] in Results Review. Patient Phone Numbers mobile [phone] Labs: Lab Results Component Value Date/Time CREAT [...] 11/04/2019 03:30 PM * Telephone Encounter - Mary Chanel LPN - 03/19/2023 8:56 AM ESTPending Prescriptions: Disp Refills Gabapentin 300 MG Oral Capsule (Neurontin) 180 Ca*1 Sig: Take 2 tablets three times daily * Telephone Encounter - Sherri Padgett [facility] - 03/19/2023 8:32 AM EST Pending Prescriptions: Disp Refills Gabapentin 300 MG Oral Capsule (Neurontin) 180 Ca*1 Sig: Take 2 tablets three times daily * Telephone Encounter - Radha Leija flight teacher - 03/18/2023 8:29 AM EST Please reroute Rx to [facility] [id number] Pending Prescriptions: Disp Refills Gabapentin 300 MG Oral Capsule (Neurontin)180 Ca*1 Sig: Take 2 tablets three times daily Last Visit: 08/15/2022 (in office), Visit date not found (telemedicine) Visit date not found If no future appointments scheduled, and last appointment is greater than a year ago, please schedule patient for a follow-up appointment Last date the medication was ordered: 01/21/23 Patient Phone Numbers Labs: Lab Results Component [...] 04/19/2023 9:30 AM EST Office Visit Cardiology, [facility] [address] [address] Laina Greer CRNP [address] [address] 05/20/2023 2:00 PM EST Office Visit Gynecology/Obstetrics [facility] [address] [address] Hailey Lee CRNP [address] [address] Health Maintenance Due Date Last Done Comments [...] Additional history exists CKD HGB USE SMARTSET 56660 08/07/202308/06, 08/06/2022, 11/03/2021, Additional history exists Mammogram 08/08/2023 08/07/2022 Albumin/Creatinine Ratio 12/18/2023 023, 10/05/2020, 05/28/2019, Additional history exists CKD PHOS USE SMARTSET 29295 12/18/202311/28, 11/20/2020, 09/06/2017 DTaP,Tdap,and Td Vaccines (3 [...] Advance Directives occurred with: Patient Care Teams Boiler Reliner Relationship Specialty Start Date End Date Irvin Iverson MD [address] [place] [address] PCP - General Family Medicine 04/02/22 documented as of this encounter
--- OUTSIDE RECORDS SUMMARY | 2023-04-22 11:18 | External Medical Summary | Summary of Care ---
Author Name Unknown Organization [facility] Address [address] [place] [address] Phone [phone] Care Team Providers Care Cane Burner Name Role Phone Irvin Iverson MD Primary Care Provider + Encounter Details Date Type Department Care Team ([facility] st Contact Info) Description 03/18/2023 Orders Only Outcomes Research Department [address] [place] [address] Chey Petit CHRA My[facility] Research Other*[id number] Allergies Active Allergy Reactions Criticality Noted Date Comments Azithromycin Other (Please comment) 03/28/2004 cramps Covid-19 Mrna Vacc (Moderna) 07/24/2021 Severe SOB/ hospitalized. Eggs Or Egg-Derived Products 05/25/2022 Other reaction(s): vomiting Ensure 02/10/2007 Vomiting, diarrhea Mushroom Extract Complex Itching 12/17/2022 Mushrooms Novocain 02/15/2010 hives [place] Extract 05/25/2022 Other reaction(s): Hives Tramadol Seizure High 09/09/2012 documented as of this encounter (statuses as of 03/18/2023) Medications Medication Sig Dispensed Refills Start Date [...] A1c goal of less than 8.0% ([facility]) Test as directed. Pt test 2 times daily. E11.9 100 Each 11 9 Active Additional Information Patient not taking.Informant: Patient, Reported on 12/17/2022 NOVOFINE 32G PEN NEEDLE 32G X 6 MM MISCIndications:Typ e 2 diabetes mellitus with hemoglobin A1c goal of less than 8.0% ([facility]) USE ONCE DAILY 100 Each 1 0 [...] s:HTN, goal below 140/80,Coronary artery disease involving [place] heart without angina pectoris, unspecified vessel or [...] 20 MEQ Oral Tablet Extended Release (Klor-Con M20)Indications:Jamal ma, unspecified type Take 1 Tablet by mouth [...] Oral Tablet (pLAVix)Indications :Coronary artery disease involving [place] heart without angina pectoris, unspecified vessel or lesion type,S/P coronary artery stent placement TAKE 1 TABLET BY MOUTH EVERY DAY 90 Tablet 1 3 Active Acetaminophen ER 650 MG Oral Tablet Extended Release (Tylenol 8 Hour)Indications:Ac [place] nonintractable headache, unspecified headache type Take 1 [...] other day. 45 Tablet 3 3 Active Gabapentin 300 MG Oral Capsule (Neurontin) Take 2 tablets three times daily 180 Capsule 1 3 Active Breo Ellipta 200-25 MCG/ACT Inhalation [...] (congestive heart failure) (HCC),Coronary artery disease involving [place] coronary artery of [place] heart without angina pectoris,Nonrheumat ic aortic valve stenosis,HTN, goal below 140/90 Take 1 Tablet by mouth in the morning. 90 Tablet 3 3 Active Hospital, Clinic, or Other Facility Administered Medication Ordered Dose Route Frequency Start Date End Date Status lidocaine 1 % inj 21 mgIndications:Cellulitis of arm, left,Abscess of multiple sites of upper arm 21 mg IJ Daily(AM) 09/20/2017 Active medroxyPROGESTERone acetate (DEPO-PROVERA) inj NORBERTO 150 mgIndications:Surveillance for Depo-Provera contraception 150 mg IM [id number] 09/09/2019 Active documented as of this encounter (statuses as of 03/18/2023) Active Problems Problem Noted Date Diagnosed Date [...] without hepatic coma 018 Overview: 09/13 dx [facility]. Genotype 1A. Confirmed 2021. New since 2015. Hx shared needles. Coronary artery disease invo lving [place] heart without angina pectoris 12/19/2016 S/P coronary [...] PCI mid right PDA with single ROJAS [facility]. EF stable 55-60%. Lung nodules inc9mm LLL. ?infection. Consider kailyn 1mo CT. 11/14 Dr Michael VERGARA Trazodone 100mg? Suboxone Dr Max Garcia 06/17 incarcerated 01/14 admit [facility]/Ashkan ODvs suicide attempt. 02/13 [facility] [place]. 09/13 ICU/intubated-fungal laewsp-hdfbb-Ntipkcl dubliniensis. , hand abscess dayna albicans MED [...] as of this encounter (statuses as of 03/18/2023) Resolved Problems Problem Noted Date Diagnosed Date Resolved Date Hydronephrosis, right 12/06/20202020 Acute on chronic diastolic c ongestive heart failure 03/03/2020 08/26/2020 Major depressive disorder, r ecurrent, unspecified 12/30/2019 12/14/2021 Uncomplicated opioid dependence 06/23/2019 03/19/2022 Coronary artery disease invo lving [place] coronary artery of [place] heart without angina pectoris 06/23/2019 12/14/2021 Encounter for monitoring Sub oxone maintenance therapy 09/24/2018 12/14/2021 Polysubstance abuse 02/26/2018 03/19/20 Overview: Fall 2017 rehab [place]-meth, etc will establish w/[facility] 02/2018 Suicide attempt by drug ingestion 02/20/2018 02/26/2018 Overview: gabapentin Seizure 09/09/2017 07/19/2020 Overview: 09/13 seizure noted. ?prior approx 5ya --placed on gabapentin Homeless 06/14/2017 11/27/2018 Tobacco abuse 04/15/2017 08/12/2017 Systolic murmur 03/04/2016 04/11/2021 Overview: 09/13 [facility]-congential thickening Partial fusion aortica valve, trivial AI, no vegetation. 2012 TTE--mild-mod AR, ?bicuspid. 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 FTS negative- offer MSAFP after 15w [facility] 11/: Repeat ultrasound is recommended for anatomy in [...] as of this encounter (statuses as of 03/18/2023) Immunizations Name Administration Dates Next Due COVID-19 [...] on file documented as of this encounter Plan of Treatment Upcoming Encounters Date Type Department Care Team (Late st Contact Info) Description 04/19/2023 9:30 AM EST Office Visit Cardiology, [facility] [address] [place] [address] Laina Greer CRNP [address] [place] [address] 05/20/2023 2:00 PM EST Office Visit Gynecology/Obstetrics [facility] [address] [place] [address] Hailey Lee CRNP [address] [place] [address] Scheduled Orders Name Type Priority Associated Diagnoses Orde r Schedule MYCODE INITIAL ADULT Lab Routine My[facility] Research Other*[id number] Expected: 03/18/2023 (Approximate), Expires: 04/06/2024 Health Maintenance Due Date Last Done Comments [...] Additional history exists CKD HGB USE SMARTSET 23666 08/07/202308/06, 08/06/2022, 11/03/2021, Additional history exists Mammogram 08/08/2023 08/07/2022 Albumin/Creatinine Ratio 12/18/2023 023, 10/05/2020, 05/28/2019, Additional history exists CKD PHOS USE SMARTSET 67083 12/18/202311/28, 11/20/2020, 09/06/2017 DTaP,Tdap,and Td Vaccines (3 [...] as of this encounter Visit Diagnoses Diagnosis My[facility] Research Other*[id number] documented in this encounter Advance Directives Latest Code Status on File Code Status Date Activated Date Inactivated Comments Full Code 02/15/2010 3:36 AM 02/16/2010 9:42 PM Thi s order reflects the patients wishes and were consensually agreed upon. Question Answer Comments Discussion of Advance Directives occurred with: Patient Care Teams Cane Burner Relationship Specialty Start Date End Date Irvin Iverson MD [address] [place] [address] PCP - General Family Medicine 04/02/22 documented as of this encounter
--- OUTSIDE RECORDS SUMMARY | 2023-04-22 11:18 | External Medical Summary | Summary of Care ---
Author Name Unknown Organization [facility] Address [address] [place] [address] Phone [phone] Care Team Providers Care Machine I Coremaker Name Role Phone Irvin Iverson MD Primary Care Provider + Reason for Visit * Reason Onset Date Comments Medication Question 04/10/2023 Encounter Details Date Type Department Care Team ([facility] Contact Info) Description 04/10/2023 Telephone Neurology [facility] [address] [place] [address] Gloria Florez PA-C [address] [place] [address] Medication Question Allergies Active Allergy Reactions Criticality Noted Date Comments Azithromycin Other (Please comment) 03/28/2004 cramps Covid-19 Mrna Vacc (Moderna) 07/24/2021 Severe SOB/ hospitalized. Eggs Or Egg-Derived Products 05/25/2022 Other reaction(s): vomiting Ensure 02/10/2007 Vomiting, diarrhea Mushroom Extract Complex Itching 12/17/2022 Mushrooms Novocain 02/15/2010 hives [place] Extract 05/25/2022 Other reaction(s): Hives Tramadol Seizure [...] A1c goal of less than 8.0% (FORMERLY [facility]) TAKE 1 TABLET BY MOUTH EVERY DAY [...] mgIndications:Surveillance for Depo-Provera contraception 150 mg IM [id number] 09/09/2019 Active documented as of this encounter [...] without hepatic coma 018 Overview: 09/13 dx [facility]. Genotype 1A. Confirmed 2021. New since [...] PCI mid right PDA with single ROJAS [facility]. EF stable 55-60%. Lung nodules inc9mm LLL. ?infection. Consider kailyn 1mo CT. 11/14 Dr Michael LEDESMA Trazodone 100mg? Suboxone Dr Max Garcia 06/17 incarcerated 01/14 admit [facility] ODvs suicide attempt. 02/13 [facility] [place]. 09/13 ICU/intubated-fungal tdvnia-narot-Xltbnia dubliniensis. , hand abscess dayna albicans MED [...] abuse 02/26/2018 03/19/20 Overview: Fall 2017 rehab [place]-meth, etc will establish w/[facility] 02/2018 Suicide attempt by drug ingestion 02/20/2018 02/26/2018 Overview: gabapentin Seizure 09/09/2017 07/19/2020 Overview: 09/13 seizure noted. ?prior approx 5ya --placed on gabapentin Homeless 06/14/2017 11/27/2018 Tobacco abuse 04/15/2017 08/12/2017 Systolic murmur 03/04/2016 04/11/2021 Overview: 09/13 [place]-congential thickening Partial fusion aortica valve, trivial AI, no vegetation. 2012 TTE--mild-mod AR, ?bicuspid. 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/2014 detention current use of ant icoagulant therapy 08/07/2010 [...] elevated at 464, repeat CBC at [facility] 02/08: Repeat ultrasound is recommended in [...] Notes * Telephone Encounter - Chrissy Dunbar [facility] - 04/10/2023 12:06 PM EST Pt had [...] and advise. Pt can be contacted at [phone]. Thank you, Chrissy Dunbar, PharmD Clinical Pharmacist [facility] ([facility]) (formerly Telepharmacy) [phone] 04/10/2023, 12:12 PM * Telephone Encounter - Radha Leija CPhT - 04/10/2023 11:57 AM EST Pt calling in to request a dose change on their Gabapentin. Current dose: 300 mg Requested dose: 800 mg Reason for request: not working Preferred pharmacy: [id number] Warm-transferred pt to pharmacist for consultation. Thank you, Radha Leija Non Profit Director [facility] ([facility]) (formerly Telepharmacy) 04/10/2023, 11:57 AM documented in this encounter Plan of Treatment Upcoming Encounters Date Type Department Care Team (Late st Contact Info) Description 04/19/2023 9:30 AM EST [facility] [place] [address] Laina Greer CRNP [address] [place] [address] 05/20/2023 2:00 PM EST Office Visit Gynecology/Obstetrics [facility] [address] [place] [address] Hailey Lee CRNP [address] [place] [address] 11/11/2023 11:00 AM EDT Office Visit Family Practice [facility] [address] [place] [address] Irvin Iverson MD [address] [place] [address] Health Maintenance Due Date Last Done Comments [...] 08/06/2021 DISCUSS TOBACCO CESSATION (REFER TO SMARTSET #6104) 08/04/2022 08/04/2021, 08/28/2017 COVID-19 Vaccine (2 - [...] Additional history exists CKD HGB USE SMARTSET 42076 08/07/202308/06, 08/06/2022, 11/03/2021, Additional history exists Mammogram 08/08/2023 08/07/2022 Albumin/Creatinine Ratio 12/18/2023 023, 10/05/2020, 05/28/2019, Additional history exists CKD PHOS USE SMARTSET 43131 12/18/202311/28, 11/20/2020, 09/06/2017 DTaP,Tdap,and Td Vaccines (3 [...] Advance Directives occurred with: Patient Care Teams Machine I Coremaker Relationship Specialty Start Date End Date Irvin Iverson MD [address] [place] [address] PCP - General Family Medicine 04/02/22 documented as of this encounter
--- OUTSIDE RECORDS SUMMARY | 2023-04-22 11:19 | External Medical Summary | Summary of Care ---
Author Name Unknown Organization [facility] Address [address] [place] [address] Phone [phone] Care Team Providers Care Chemists Name Role Phone Irvin Kramer MD Primary Care Provider + Reason for Visit * Reason Comments eRx-Medication Refill Encounter Details Date Type Department Care Team ([facility] Contact Info) Description 02/25/2023 Refill Family Practice [facility] [address] [place] [address] Irvin Kramer MD [address] [place] [address] Allergies Active Allergy Reactions Criticality Noted Date Comments Azithromycin Other (Please comment) 03/28/2004 cramps Covid-19 Mrna Vacc (Moderna) 07/24/2021 Severe SOB/ hospitalized. Eggs Or Egg-Derived Products 05/25/2022 Other reaction(s): vomiting Ensure 02/10/2007 Vomiting, diarrhea Mushroom Extract Complex Itching 12/17/2022 Mushrooms Novocain 02/15/2010 hives [place] Extract 05/25/2022 Other reaction(s): Hives Tramadol Seizure High 09/09/2012 documented as of this encounter (statuses as of 02/26/2023) Medications Medication Sig Dispensed Refills Start Date [...] ns:HTN, goal below 140/80,Coronary artery disease involving [place]sh[place] heart without angina pectoris, unspecified vessel or [...] bedtime. 180 Tablet 3 08/31/19 23 Active levETIRAcetam 500 MG Oral Tablet (Keppra) Take 1 Tablet by mouth in the morning and 1 Tablet before bedtime. 180 Tablet 1 08/31/19 23 Active Escitalopram Oxalate 20 MG Oral Tablet (Lexapro)Indicatio ns:Depression with anxiety Take 1 Tablet by mouth in the morning. 90 Tablet 3 08/31/19 23 Active Potassium Chloride Yvonne ER 20 MEQ Oral Tablet Extended Release (Klor-Con M20)Indications:Ed donald, unspecified type Take 1 Tablet by mouth in the morning. 90 Tablet 1 09/01/19 23 Active Metoprolol Succinate ER 25 MG [...] HEARTBURN. 180 Tablet 2 09/28/19 23 Active Lisinopril 5 MG Oral Tablet (Prinivil)Pedroti ons:HTN, goal below 130/80 TAKE 1 TABLET BY MOUTH EVERY DAY IN THE MORNING 90 Tablet 1 10/14/19 23 Active Mupirocin 2 % External Ointment (Bactroban) APPLY TOPICALLY TO AFFECTED AREA THREE TIMES A DAY FOR UP TO 14 DAYS 22 g 10 10/24/19 23 Active Additional Information Patient not taking.Informant: Patient, Reported on 12/17/2022 Clopidogrel Bisulfate 75 MG Oral Tablet (pLAVix)Indication s:Coronary artery disease involving [place]shosh[place] heart without angina pectoris, unspecified vessel or lesion type,S/P coronary artery stent placement TAKE 1 TABLET BY MOUTH EVERY DAY 90 Tablet 1 12/14/19 23 Active Acetaminophen ER 650 MG Oral Tablet Extended Release (Tylenol 8 Hour)Indications:A cute nonintractable headache, unspecified headache type Take 1 Tablet by mouth every 8 hours as needed for Pain, Moderate. 30 Tablet 0 12/16/19 23 Active Torsemide 20 MG Oral Tablet (Demadex)Indicatio ns:Chronic diastolic CHF (congestive heart failure) (HCC),Coronary artery disease involving [place] coronary artery of [place]oshone heart without angina pectoris,Nonrheuma tic aortic valve stenosis,HTN, goal below 140/90,Dyslipidemi a, goal LDL below 70 Take 1 Tablet by mouth in the morning. 60 Tablet 5 12/18/19 Active Additional Information Patient not taking.Informant: Patient, Reported on 12/17/2022 Meclizine HCl 25 MG Oral Tablet (Antivert)Indicati ons:Vertigo Take 1 Tablet by mouth 3 times a day as needed for Dizziness. 90 Tablet 3 12/18/19 Active Ferrous Sulfate 325 (65 Fe) MG Oral Tablet (Feosol)Indication s:Iron deficiency anemia, unspecified iron deficiency anemia type Take 1 Tablet by mouth every other day. 45 Tablet 3 01/05/20 Active Gabapentin 300 MG Oral Capsule (Neurontin) Take 2 tablets three times daily 180 Capsule 1 01/22/20 Active Cyclobenzaprine HCl 10 MG Oral Tablet (Flexeril)Indicati ons:Lumbar disc disease TAKE 1 TABLET BY MOUTH IN THE MORNING AND BEFORE BEDTIME 60 Tablet 0 02/05/20 Active Breo Ellipta 200-25 MCG/ACT Inhalation Aerosol Powder Breath Activated INHALE ONE (1) PUFF BY MOUTH IN THE MORNING PLEASE RINSE MOUTH OUT AFTER USE 180 Blister Dosing Unit 3 02/27/20 Active Fluticasone Furoate-Vilanterol 200-25 MCG/ACT Inhalation Aerosol Powder Breath Activated (BREO ellipta) Inhale 1 Puff by mouth in the morning. Please rinse mouth out after using.. 180 Blister Dosing Unit 1 09/06/19 23 023 Discontinued Hospital, Clinic, or Other Facility Administered Medication Ordered Dose Route Frequency Start Date End Date Status lidocaine 1 % inj 21 mgIndications:Cellulitis of arm, left,Abscess of multiple sites of upper arm 21 mg IJ Daily(AM) 09/20/2017 Active medroxyPROGESTERone acetate (DEPO-PROVERA) inj NORBERTO 150 mgIndications:Surveillance for Depo-Provera contraception 150 mg IM [id number] 09/09/2019 Active documented as of this encounter (statuses as of 02/26/2023) Active Problems Problem Noted Date Diagnosed Date [...] without hepatic coma 018 Overview: 09/13 dx [facility]. Genotype 1A. Confirmed 2021. New since 2015. Hx shared needles. Coronary artery disease invo lving [place]sh[place] heart without angina pectoris 12/19/2016 S/P coronary [...] PCI mid right PDA with single ROJAS [facility]. EF stable 55-60%. Lung nodules inc9mm LLL. ?infection. Consider kailyn 1mo CT. 11/14 Dr Michael VERGARA Trazodone 100mg? Suboxone Dr Max Garcia 06/17 incarcerated 01/14 admit [facility]/[place] ODvs suicide attempt. 02/13 [facility] [place]. 09/13 ICU/intubated-fungal deljzt-iooin-Xvbmwso dubliniensis. , hand abscess dayna albicans MED [...] as of this encounter (statuses as of 02/26/2023) Resolved Problems Problem Noted Date Diagnosed Date Resolved Date Hydronephrosis, right 12/06/20202020 Acute on chronic diastolic c ongestive heart failure 03/03/2020 08/26/2020 Major depressive disorder, r ecurrent, unspecified 12/30/2019 12/14/2021 Uncomplicated opioid dependence 06/23/2019 03/19/2022 Coronary artery disease invo lving [place] coronary artery of [place] heart without angina pectoris 06/23/2019 12/14/2021 Encounter for monitoring Sub oxone maintenance therapy 09/24/2018 12/14/2021 Polysubstance abuse 02/26/2018 03/19/20 Overview: Fall 2017 rehab [place]-meth, etc will establish w/[facility] 02/2018 Suicide [...] Sciatica 03/11/2013 04/11/2021 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 03/31/201211/2014 [facility] current use of ant icoagulant therapy 08/07/2010 [...] at 464, repeat CBC at [facility] 02/08: Repeat ultrasound is recommended in [...] as of this encounter (statuses as of 02/26/2023) Immunizations Name Administration Dates Next Due COVID-19 [...] encounter Miscellaneous Notes * Telephone Encounter - Isael Irvin RPh - 02/26/2023 3:48 PM EDTSigned Prescriptions: Disp Refills Breo Ellipta 200-25 MCG/ACT Inhalation Aer*180 Bl*3 Sig: INHALEONE (1) PUFF BY MOUTH IN THE MORNING PLEASE RINSE MOUTH OUT AFTER USEAuthorizing Provider: IRVIN KRAMER User: ISAEL IRVIN documented in this encounter Plan of Treatment Upcoming Encounters Date Type Department Care Team (Late st Contact Info) Description 04/19/2023 9:30 AM EST Office Visit Cardiology, [facility] [address] [place] [address] Laina Greer CRNP [address] [place] [address] 05/20/2023 2:00 PM EST Office Visit Gynecology/Obstetrics [facility] [address] [place] [address] [place], Hailey BrownJOSETTE [address] [place] [address] Health Maintenance Due Date Last Done Comments Pneumococcal Vaccine: Pediatrics (0 to 5 Years) and At-Risk Patients (6 to 64 Years) (2 - PCV) 11/28/2006 11/28/2005 Diabetic Eye Exam 11/03/2020 11/04/2019, , 06/29/2008 (Done elsewhere), Additional history exists Depression Screening 03/03/2021 03/03/2020, [...] Additional history exists CKD HGB USE SMARTSET 41084 08/07/202308/06, 08/06/2022, 11/03/2021, Additional history exists Mammogram 08/08/2023 08/07/2022 Albumin/Creatinine Ratio 12/18/2023 023, 10/05/2020, 05/28/2019, Additional history exists CKD PHOS USE SMARTSET 73441 12/18/202311/28, 11/20/2020, 09/06/2017 DTaP,Tdap,and Td Vaccines (3 [...] Advance Directives occurred with: Patient Care Teams Chemists Relationship Specialty Start Date End Date Irvin Kramer MD [address] [place] [address] PCP - General Family Medicine 04/02/22 documented as of this encounter
--- OUTSIDE RECORDS SUMMARY | 2023-04-22 11:19 | External Medical Summary | Summary of Care ---
Author Name Unknown Organization [facility] Address [address] [place] [address] Phone [phone] Care Team Providers Care Administrative Accountant Name Role Phone Irvin Kramer MD Primary Care Provider + Reason for Visit * Reason Comments eRx-Medication Refill Encounter Details Date Type Department Care Team ([facility] Contact Info) Description 03/03/2023 Refill Family Practice [facility] [address] [place] [address] Irvin Kramer MD [address] [place] [address] HTN, goal below 130/80 Allergies Active Allergy Reactions Criticality Noted Date Comments Azithromycin Other (Please comment) 03/28/2004 cramps Covid-19 Mrna Vacc (Moderna) 07/24/2021 Severe SOB/ hospitalized. Eggs Or Egg-Derived Products 05/25/2022 Other reaction(s): vomiting Ensure 02/10/2007 Vomiting, diarrhea Mushroom Extract Complex Itching 12/17/2022 Mushrooms Novocain 02/15/2010 hives [place] Extract 05/25/2022 Other reaction(s): Hives Tramadol Seizure High 09/09/2012 documented as of this encounter (statuses as of 03/04/2023) Medications Medication Sig Dispensed Refills Start Date [...] ns:HTN, goal below 140/80,Coronary artery disease involving [place] heart without angina pectoris, unspecified vessel or [...] Oral Tablet (pLAVix)Indication s:Coronary artery disease involving [place] heart without angina pectoris, unspecified vessel or [...] day. 45 Tablet 3 01/05/20 23 Active Gabapentin 300 MG Oral Capsule (Neurontin) Take 2 tablets three times daily 180 Capsule 1 01/22/20 23 Active Breo Ellipta 200-25 MCG/ACT Inhalation [...] MORNING 90 Tablet 3 03/04/20 23 Active Lisinopril 5 MG Oral Tablet (Prinivil)Indicati ons:HTN, goal below 130/80 TAKE 1 TABLET BY MOUTH EVERY DAY IN THE MORNING 90 Tablet 1 10/14/19 23 023 Discontinued Hospital, Clinic, or Other Facility Administered Medication Ordered Dose Route Frequency Start Date End Date Status lidocaine 1 % inj 21 mgIndications:Cellulitis of arm, left,Abscess of multiple sites of upper arm 21 mg IJ Daily(AM) 09/20/2017 Active medroxyPROGESTERone acetate (DEPO-PROVERA) inj NORBERTO 150 mgIndications:Surveillance for Depo-Provera contraception 150 mg IM [id number] 09/09/2019 Active documented as of this encounter (statuses as of 03/04/2023) Active Problems Problem Noted Date Diagnosed Date [...] shared needles. Coronary artery disease invo lving [place] heart without angina pectoris 12/19/2016 S/P coronary [...] 02/13 [facility] [place]. 09/13 ICU/intubated-fungal jyjqer-yfkpt-Bdnbjch dubliniensis. , hand abscess dayna albicans MED [...] as of this encounter (statuses as of 03/04/2023) Resolved Problems Problem Noted Date Diagnosed Date Resolved Date Hydronephrosis, right 12/06/20202020 Acute on chronic diastolic c ongestive heart failure 03/03/2020 08/26/2020 Major depressive disorder, r ecurrent, unspecified 12/30/2019 12/14/2021 Uncomplicated opioid dependence 06/23/2019 03/19/2022 Coronary artery disease invo lving [place] coronary artery of [place] heart without angina pectoris 06/23/2019 12/14/2021 Encounter for monitoring Sub oxone maintenance therapy 09/24/2018 12/14/2021 Polysubstance abuse 02/26/2018 03/19/20 Overview: Fall 2017 rehab [place]-meth, etc will establish w/[facility] 02/2018 Suicide attempt [...] Sciatica 03/11/2013 04/11/2021 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 03/31/201211/2014 [employer] oil [employer] current use of ant icoagulant therapy 08/07/2010 [...] platelets elevated at 464, repeat CBC at [facility] 02/08: Repeat ultrasound is recommended in 3 [...] as of this encounter (statuses as of 03/04/2023) Immunizations Name Administration Dates Next Due COVID-19 [...] encounter Miscellaneous Notes * Telephone Encounter - Nayeli Thakur RPh - 03/04/2023 2:16 PM ESTSigned Prescriptions: Disp Refills Lisinopril 5 MG Oral Tablet (Prinivil) 90 Tab*3 Sig: TAKE 1 TABLET BY MOUTH EVERY DAY IN THE MORNINGAuthorizing Provider: IRVIN KRAMER User: Dagoberto THAKUR documented in this encounter Plan of Treatment Upcoming Encounters Date Type Department Care Team (Late st Contact Info) Description 04/19/2023 9:30 AM EST Office Visit Cardiology, [facility] [address] [address] Laina Greer CRNP [address] [address] 05/20/2023 2:00 PM EST Office Visit Gynecology/Obstetrics [facility] [address] [address] Hailey Lee CRNP [address] [place] [address] Health Maintenance Due Date Last Done Comments [...] Additional history exists CKD HGB USE SMARTSET 71376 08/07/202308/06, 08/06/2022, 11/03/2021, Additional history exists Mammogram 08/08/2023 08/07/2022 Albumin/Creatinine Ratio 12/18/2023 023, 10/05/2020, 05/28/2019, Additional history exists CKD PHOS USE SMARTSET 08760 12/18/202311/28, 11/20/2020, 09/06/2017 DTaP,Tdap,and Td Vaccines (3 [...] encounter Visit Diagnoses Diagnosis HTN, goal below 130/80 Unspecified essential hypertension documented in this encounter Advance Directives Latest Code Status on File Code Status Date Activated Date Inactivated Comments Full Code 02/15/2010 3:36 AM 02/16/2010 9:42 PM Thi s order reflects the patients wishes and were consensually agreed upon. Question Answer Comments Discussion of Advance Directives occurred with: Patient Care Teams Administrative Accountant Relationship Specialty Start Date End Date Irvin Kramer MD [address] [facility] [place] [address] PCP - General Family Medicine 04/02/22 documented as of this encounter
--- OUTSIDE RECORDS SUMMARY | 2023-04-22 11:19 | External Medical Summary | Summary of Care ---
Author Name Unknown Organization [facility] Address [address] [place] [address] Phone [phone] Care Team Providers Care Purchasing/Receiving Name Role Phone Irvin Iverson MD Primary Care Provider + Reason for Visit * Reason Onset Date Comments Medication Refill 01/21/2023 Encounter Details Date Type Department Care Team Description 01/21/2023 Telephone Neurology [facility] [place] [place] [address] [place] [address] Gloria Dubois PA-C [address] [place] [address] Medication Refill Allergies Active Allergy Reactions Severity Noted Date Comments Azithromycin Other (Please comment) 03/28/2004 cramps Covid-19 Mrna Vacc (Moderna) 07/24/2021 Severe SOB/ hospitalized. Eggs Or Egg-Derived Products 05/25/2022 Other reaction(s): vomiting Ensure 02/10/2007 Vomiting, diarrhea Mushroom Extract Complex Itching 12/17/2022 Mushrooms Novocain 02/15/2010 hives [place] Extract 05/25/2022 Other reaction(s): Hives Tramadol Seizure High 09/09/2012 documented as of this encounter (statuses as of 01/21/2023) Medications Medication Sig Dispensed Refills Start Date [...] ns:HTN, goal below 140/80,Coronary artery disease involving [place] heart without angina pectoris, unspecified vessel or [...] before bedtime. 180 Tablet 3 3 Active levETIRAcetam 500 MG Oral Tablet (Keppra) Take 1 Tablet by mouth in the morning and 1 Tablet before bedtime. 180 Tablet 1 3 Active Escitalopram Oxalate 20 MG Oral [...] or Wheezing. 54 g 1 3 Active Fluticasone Furoate-Vilanterol 200-25 MCG/ACT Inhalation Aerosol Powder Breath Activated (BREO ellipta) Inhale 1 Puff by mouth in the morning. Please rinse mouth out after using.. 180 Blister Dosing Unit 1 3 Active Aspirin Low Dose 81 MG Oral Tablet Delayed Release (aspirin enteric coated)Indications :Type 2 diabetes mellitus with hemoglobin A1c goal of less than 8.0% (HCC) TAKE 1 TABLET BY MOUTH EVERY DAY 100 Tablet 3 3 Active Famotidine 20 MG Oral Tablet (Pepcid) TAKE 1 TABLET BY MOUTH 2 TIMES A DAY NEEDED FOR HEARTBURN. 180 Tablet 2 3 Active Lisinopril 5 MG Oral Tablet (Prinivil)Indicati ons:HTN, goal below 130/80 TAKE 1 TABLET BY MOUTH EVERY DAY IN THE MORNING 90 Tablet 1 3 Active Mupirocin 2 % External Ointment (Bactroban) APPLY TOPICALLY TO AFFECTED AREA THREE TIMES A DAY FOR UP TO 14 DAYS 22 g 10 3 Active Additional Information Patient not taking.Informant: Patient, Reported on 12/17/2022 Clopidogrel Bisulfate 75 MG Oral Tablet (pLAVix)Indication s:Coronary artery disease involving [place] heart without angina pectoris, unspecified vessel or lesion type,S/P coronary artery stent placement TAKE 1 TABLET BY MOUTH EVERY DAY 90 Tablet 1 3 Active Acetaminophen ER 650 MG Oral Tablet Extended Release (Tylenol 8 Hour)Indications:A cute nonintractable headache, unspecified headache type Take 1 Tablet by mouth every 8 hours as needed for Pain, Moderate. 30 Tablet 0 3 Active Torsemide 20 MG Oral Tablet (Demadex)Indicatio ns:Chronic diastolic CHF (congestive heart failure) (HCC),Coronary artery disease involving [place] coronary artery of [place] heart without angina pectoris,Nonrheuma tic aortic valve stenosis,HTN, goal below 140/90,Dyslipidemi a, goal LDL below 70 Take 1 Tablet by mouth in the morning. 60 Tablet 5 3 Active Additional Information Patient not taking.Informant: [...] other day. 45 Tablet 3 3 Active Cyclobenzaprine HCl 10 MG Oral Tablet (Flexeril)Indicati ons:Lumbar disc disease TAKE 1 TABLET BY MOUTH IN THE MORNING AND BEFORE BEDTIME 60 Tablet 0 3 Active Gabapentin 300 MG Oral Capsule (Neurontin) Take 2 tablets three times daily 180 Capsule 1 3 Active Gabapentin 300 MG Oral Capsule (Neurontin) TAKE 1 CAPSULE BY MOUTH THREE TIMES A DAY 90 Capsule 1 3 01/22/20 23 Discontinu ed(Refill) Gabapentin 100 MG Oral Capsule (Neurontin) Take 1 cap three times daily with 300 mg tablets for a total of 400 mg three time daily 90 Capsule 2 3 01/22/20 23 Discontinu ed(Patient preference /discontin uation) Hospital, Clinic, or Other Facility Administered Medication Ordered Dose Route Frequency Start Date End Date Status lidocaine 1 % inj 21 mgIndications:Cellulitis of arm, left,Abscess of multiple sites of upper arm 21 mg IJ Daily(AM) 09/20/2017 Active medroxyPROGESTERone acetate (DEPO-PROVERA) inj NORBERTO 150 mgIndications:Surveillance for Depo-Provera contraception 150 mg IM [id number] 09/09/2019 Active documented as of this encounter (statuses as of 01/21/2023) Active Problems Problem Noted Date Adrenal adenoma, right 08/10/2022 Overview: 11mm, CT scan 07/2022. Benign by imaging, needs hormonal w/u. Tricuspid valve vegetation 03/20/2022 Chronic kidney disease, stage 3a 022 Overview: Per CKD protocol Chronic hypoxemic respiratory failure Recurrent UTI 12/06/2020 Ureteral duplication, right 12/06/2020 Moderate recurrent major depression 07/30 Chronic diastolic heart failure 08/27/19 21 Diabetic peripheral neuropathy 9 Chronic hepatitis C without hepatic coma 09/09/2017 Overview: 09/13 dx [facility]. Genotype 1A. Confirmed 2021. New since 2015. Hx shared needles. Coronary artery disease involving [place] heart without angina pectoris 12/19/2016 S/P coronary artery stent placement 11/28 Nonrheumatic aortic valve stenosis 11/16 History of narcotic addiction 01/20/2015 Overview: OD 01/2018 with neurontin Caution with neurontin, issues getting different scrips with different doses TERMINATED MEDICATION USAGE AGREEMENT Well adult exam 09/03/2014 Overview: NEED PAP 12/19 Cardiac cath -mod-severe CAD LAD., consider stent if angina 07/18 admitted [facility]. EEG--encephalopathy, abnormal. 2019-need restart atorv 80?. 02/23/20 PCI mid right PDA with single ROJAS [facility]. EF stable 55-60%. Lung nodules inc9mm LLL. ?infection. Consider kailyn 1mo CT. 11/14 Dr Michael LEDESMA Trazodone 100mg? Suboxone Dr Max Garcia 06/17 incarcerated 01/14 admit [facility] ODvs suicide attempt. 02/13 d/c to [facility] in [place]. 09/13 ICU/intubated-fungal qzfpcq-vztql-Pidatyl dubliniensis. , hand abscess dayna albicans MED USE AGREEMENT CANCELLED. Hx narcotic abuse , now in remission. 11/12 TTE-mod Aortic stenosis Tobacco use disorder 09/03/2014 Vitamin D deficiency 06/02/2014 Iron deficiency anemia 09/09/2012 Dyslipidemia 01/18/2012 HTN, goal below 130/80 12/17/2011 Lumbar disc disease 07/31/2011 Moderate persistent asthma without compl ication 10/20/2009 Overview: Per Provider Protocol. Per Asthma Taxonomy Using albuterol 3-4x weeks-growth scans in 3rd trimester Using nebulizer prn, last used three weeks ago Yun peak flow not doing at this time Type 2 diabetes mellitus with hemoglobin A1c goal of less than 8.0% 02/10/2009 Overview: lantus + metformin documented as of this encounter (statuses as of 01/21/2023) Resolved Problems Problem Noted Date Resolved Date Hydronephrosis, right 12/06/2020 04/11/2021 Acute on chronic diastolic congestive heart fail ure 03/03/2020 08/26/2020 Major depressive disorder, recurrent, unspecifie d 12/30/2019 12/14/2021 Uncomplicated opioid dependence 06/23/2019 03/19/2022 Coronary artery disease invo lving [place] coronary artery of [place] heart without angina pectoris 06/23/2019 12/14/2021 Encounter for monitoring Suboxone maintenance th erapy 09/24/2018 12/14/2021 Polysubstance abuse 02/26/2018 03/19/2022 Overview: Fall 2017 rehab [place]-meth, etc will establish w/[facility] 02/2018 Suicide attempt by drug ingestion 02/20/2018 02/26/2018 Overview: gabapentin Seizure 09/09/2017 07/19/2020 Overview: 09/13 seizure noted. ?prior approx 5ya --placed on gabapentin Homeless 06/14/2017 11/27/2018 Tobacco abuse 04/15/2017 08/12/2017 Systolic murmur 03/04/2016 04/11/2021 Overview: 09/13 [facility]-congential thickening Partial fusion aortica valve, trivial AI, no vegetation. 2012 TTE--mild-mod AR, ?bicuspid. 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 Cervical incompetence, antepartum 03/02/2010 04/11/2016 Enterococcus UTI 02/16/2010 12/04/2011 Other pulmonary embolism and infarction 02/16/20 10 07/29/2014 Overview: On lovenox 1 ml q 12 hr Supervision of high-risk of young myriam baez 02/13/2010 08/04/2012 Overview: H/o loss at 20-22wks due to ? Incompetent cervix in 1997-no records on file, needs cervical length check 01/11: WBC elevated at 23; platelets elevated at 464, repeat CBC at [facility] 02/08: Repeat ultrasound is recommended in 3 weeks for TVS to assess cervical length. FTS negative- offer MSAFP after 15w MFM 03/02: Repeat ultrasound is recommended for anatomy in 5-6 weeks at your location and then q 4 weeks for growth due to CHTN, Type II DM, and Asthma. Mitral valve disorder 02/08/2010 08/04/2010 Backache 01/11/2010 08/04/2010 Overview: Pt follows with [...] risk for chromosome abnormality. Supervision of high-risk of young myriam sasha 01/11/2010 02/08/2010 Overview: H/o loss at 20-22 weeks due to ?incompetent cervix in 1997-no records on file; needs cervical length check 16-18w 01/11: WBC elevated at 23; plt elevated at 464; repeat CBC at [place] Asthma with severity to be determined 10/20/2009 08/09/2011 Overview: Per Asthma Taxonomy Using albuterol 3-4x weeks-growth scans in 3rd trimester Using nebulizer prn, last used three weeks ago Yun peak flow not doing at this time ICD-10 update of inactive term Severe obesity with body mas s index (BMI) of 35.0 to 39.9 with serious comorbidity 07/25/2009 02/20/2018 Overview: Per Obesity Taxonomy ICD-10 update of inactive diagnosis HTN, goal below 130/80 05/26/2009 2 Overview: Per HTN Taxonomy. Taking Lisinopril/HCTZ 10-12.5mg [...] to stop med Tobacco use disorder 04/08/2009 11/19/2012 Overview: Smoking 2ppd at NOB visit; we discussed risks of PTL and IUGR; continue to discuss tapering and cessation Continues to smoke one pack daily, advise attempt to quit Tobacco use disorder 11/04/2008 12/06/2008 Esophageal reflux 12/22/2007 08/04/2010 ADJ DISORDER W/DEPRES MOOD 11/28/200508/04 ADVANCE DIRECTIVE INFORMATION 09/21/2005 Overview: Pt given booklet. DM type 2, not at goal 09/01/2004 10/ 9 Overview: Modified per Diabetes protocol #14. Calculus of kidney 07/12/2004 02/08/2010 OBESITY, UNSPECIFIED 05/24/2003 07/25/2009 Overview: Per Obesity Taxonomy EXTRINSIC ASTHMA, UNSPEC 05/21/2003 010 PURE HYPERCHOLESTEROLEM 09/12/2000 04/13/20 09 Overview: Per Lipid Taxonomy. HTN, goal below 140/90 07/25/2000 2 Overview: Per HTN Taxonomy. Carpal tunnel syndrome of left wrist 01/19/1999 04/11/2021 Dental disorder NEC 07/20/1998 02/08/2010 Tobacco use disorder 12/22/2007 documented as of this encounter (statuses as of 01/21/2023) Immunizations Name Administration Dates Next Due COVID-19 mRNA, LNP-s, No Pre serve, 2-Dose Series (Moderna) 09/16/2020 Hepatitis B, 20+ yrs 08/26/2018,10/03/19 18,09/16/2017,12/19(Deferred: Patient Refused),03/02/2016,10/18/2014 Pneumococcal Polysaccharide PPV23 (Pneumovax) 11/28/2005 Seasonal Influenza, PF, 6 mo ns & Above, IM , (Flulaval) 02/10/2021,01/18/2021(Deferred: Patient Refused),03/03/2020 TDAP (age 10 and [...] drink = 0.6 oz pur e alcohol) Food Insecurity Answer Date Recorded Within the past 12 months, y ou worried that your food would run out before you got money to buy more. Never true 07/25/2020 Within the past 12 months, t he food you bought just didn't last and you didn't have money to get more. Never true 07/25/2020 Sex Assigned at Date Recorded Female 03/03/2020 11:37 AM EST Job Start Date Occupation Industry Not on file Not on file Not on file documented as of this encounter Miscellaneous Notes * Addendum Note - Gloria Dubois PA-C - 01/21/2023 12:01 PM EDTAddended by: GLORIA DUBOIS on: 01/21/2023 12:01 PM Modules accepted: Orders * Telephone Encounter - Gloria Dubois PA-C - 01/21/2023 11:55 AM EDT Gabapentin 300 mg take 2 tab three times daily. With her kidney function this is the highest she will be allowed to have. Will need to watch kidney function. Thank you KK * Telephone Encounter - Marissa Garsia RPh - 01/21/2023 11:05 AM EDT Pt calling in to request a dose change on their gabapentin Current dose: 400 mg Requested dose: 600 mg Reason for request: 400 not working Please advise if a dose increase is appropriate. Thanks, Marissa Garsia RPh Clinical Pharmacist [facility] ([facility]) (Formerly Telepharm[facility]) [phone] * Telephone Encounter - RICHARDSON Fall - 01/21/2023 10:38 AM EDT Pt calling in to request a dose change on their gabapentin Current dose: 400 mg Requested dose: 600 mg Reason for request: 400 not working Preferred pharmacy: [id number] Patient unwilling to speak with pharmacist at this time. Routing to pharmacist pool to advise. Thank you, Jinny Acevedo, [facility] [employer] II [facility])(Formerly [facility]pharmacy) 01/21/2023,10:39 AM documented in this encounter Plan of Treatment Upcoming Encounters Date Type Specialty Care Team Description 01/23/2023 Office Visit Neurology Gloria Dubois PA-C [address] [place] [address] 02/20/2023 Office Visit Family Medicine Irvin Iverson MD [address] [place] [address] 04/19/2023 Office Visit Cardiology Laina Greer CRNP [address] [place] [address] Health Maintenance Due Date Last Done Comments Pneumococcal Vaccine: Pediatrics (0 to 5 Years) and At-Risk Patients (6 to 64 Years) (2 - PCV) 11/28/2006 11/28/2005 DIABETES-EYE EXAM 11/03/2020 11/04/2019, , 06/29/2008 (Done elsewhere), Additional history exists COVID-19 Vaccine (2 - Moderna series) 11/11/2020 09/16/2020 Depression Screening 03/03/2021 03/03/2020, 08/29/19 18 Diabetic Foot Exam 03/03/2021 03/03/2020, 0 09/24/2018, 09/20/2017, Additional history exists *SPIROMETRY ONCE FOR ASTHMA-ADULT 08/06/2021 DISCUSS TOBACCO CESSATION (REFER TO SMARTSET #3291) 08/04/2022 08/04/2021, 08/28/2017 Influenza Vaccine (FLU shot) (#1) 2022 02/10/2021, 03/03/2020 HbA1c 2023 08/06/2022, 06/0 12/2020, 11/04/2019, Additional history exists GFR 06/19/2023 12/17/2022, 07/29, 08/06/2022, Additional history exists PAP SMEAR-ANNUAL AGES 18-100 07/26/2023 07/25/2022, 09/24/2017, 07/14/2014, Additional history exists CKD HGB USE SMARTSET 35878 08/07/202308/06, 08/06/2022, 11/03/2021, Additional history exists Mammogram 08/08/2023 08/07/2022 Albumin/Creatinine Ratio 12/18/2023 023, 10/05/2020, 05/28/2019, Additional history exists CKD PHOS USE SMARTSET 57001 12/18/202311/28, 11/20/2020, 09/06/2017 DTaP,Tdap,and Td Vaccines (3 [...] Advance Directives occurred with: Patient Care Teams Purchasing/Receiving Relationship Specialty Start Date End Date Irvin Iverson MD [address] [place] [address] PCP - General Family Medicine 04/02/22 documented as of this encounter
--- OUTSIDE RECORDS SUMMARY | 2023-04-22 11:19 | External Medical Summary | Summary of Care ---
Author Name Unknown Organization [facility] Address [address] [place] [address] Phone [phone] Care Team Providers Care Diversified Crops Farmer Name Role Phone Irvin Kramer MD Primary Care Provider + Reason for Visit * Reason Comments eRx-Medication Refill Encounter Details Date Type Department Care Team ([facility] Contact Info) Description 03/01/2023 Refill Family Practice [facility] [address] [place] [address] Irvin Kramer MD [address] [place] [place] [address] Allergies Active Allergy Reactions Criticality Noted Date Comments Azithromycin Other (Please comment) 03/28/2004 cramps Covid-19 Mrna Vacc (Moderna) 07/24/2021 Severe SOB/ hospitalized. Eggs Or Egg-Derived Products 05/25/2022 Other reaction(s): vomiting Ensure 02/10/2007 Vomiting, diarrhea Mushroom Extract Complex Itching 12/17/2022 Mushrooms Novocain 02/15/2010 hives [place] Extract 05/25/2022 Other reaction(s): Hives Tramadol Seizure High 09/09/2012 documented as of this encounter (statuses as of 03/03/2023) Medications Medication Sig Dispensed Refills Start Date [...] ns:HTN, goal below 140/80,Coronary artery disease involving [place] heart without angina pectoris, unspecified vessel or [...] Oral Tablet (pLAVix)Indication s:Coronary artery disease involving [place] heart without angina pectoris, unspecified vessel or [...] (Demadex)Indicatio ns:Chronic diastolic CHF (congestive heart failure) ([facility]),Coronary artery disease involving [place] coronary artery of [place] heart without angina pectoris,Nonrheuma tic aortic valve stenosis,HTN, goal below 140/90,Dyslipidemi a, goal LDL below 70 Take 1 Tablet by mouth in the morning. 60 Tablet 5 12/18/19 23 Active Additional Information Patient not taking.Informant: [...] times daily 180 Capsule 1 01/22/20 Active Breo Ellipta 200-25 MCG/ACT Inhalation Aerosol Powder Breath Activated INHALE ONE (1) PUFF BY MOUTH IN THE MORNING PLEASE RINSE MOUTH OUT AFTER USE 180 Blister Dosing Unit 3 02/27/20 Active Cyclobenzaprine HCl 10 MG Oral Tablet (Flexeril)Indicati ons:Lumbar disc disease TAKE 1 TABLET BY MOUTH IN THE MORNING AND BEFORE BEDTIME 60 Tablet 0 03/01/20 23 Active levETIRAcetam 500 MG Oral Tablet (Keppra) TAKE ONE (1) TABLET BY MOUTH TWICE DAILY IN THE MORNING AND BEFORE BEDTIME 60 Tablet 11 03/03/20 23 Active levETIRAcetam 500 MG Oral Tablet (Keppra) Take 1 Tablet by mouth in the morning and 1 Tablet before bedtime. 180 Tablet 1 08/31/19 23 023 Discontinued Hospital, Clinic, or Other Facility Administered Medication Ordered Dose Route Frequency Start Date End Date Status lidocaine 1 % inj 21 mgIndications:Cellulitis of arm, left,Abscess of multiple sites of upper arm 21 mg IJ Daily(AM) 09/20/2017 Active medroxyPROGESTERone acetate (DEPO-PROVERA) inj NORBERTO 150 mgIndications:Surveillance for Depo-Provera contraception 150 mg IM [id number] 09/09/2019 Active documented as of this encounter (statuses as of 03/03/2023) Active Problems Problem Noted Date Diagnosed Date [...] hepatic coma 018 Overview: 09/13 dx [facility]. Genotype 1A. Confirmed 2021. New since 2015. Hx shared needles. Coronary artery disease invo lving alt[place] heart without angina pectoris 12/19/2016 S/P coronary [...] mid right PDA with single ROJAS [facility]. EF stable 55-60%. Lung nodules inc9mm LLL. ?infection. Consider kailyn 1mo CT. 11/14 Dr Michael VERGARA Trazodone 100mg? Suboxone Dr Max Garcia 06/17 incarcerated 01/14 admit [facility]/[place] ODvs suicide attempt. 02/13 d/c to [facility] in [place]. 09/13 ICU/intubated-fungal zmchnl-nyndc-Pichwbo dubliniensis. , hand abscess dayna albicans MED [...] as of this encounter (statuses as of 03/03/2023) Resolved Problems Problem Noted Date Diagnosed Date Resolved Date Hydronephrosis, right 12/06/20202020 Acute on chronic diastolic c ongestive heart failure 03/03/2020 08/26/2020 Major depressive disorder, r ecurrent, unspecified 12/30/2019 12/14/2021 Uncomplicated opioid dependence 06/23/2019 03/19/2022 Coronary artery disease invo lving alt[place] coronary artery of [place] heart without angina pectoris 06/23/2019 12/14/2021 Encounter for monitoring Sub oxone maintenance therapy 09/24/2018 12/14/2021 Polysubstance abuse 02/26/2018 03/19/20 Overview: Fall 2017 rehab [facility], etc will establish w/[facility] 02/2018 Suicide attempt [...] Sciatica 03/11/2013 04/11/2021 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 03/31/201211/2014 long-term current use of ant icoagulant therapy 08/07/2010 [...] elevated at 464, repeat CBC at [place] [facility] 02/08: Repeat ultrasound is recommended in 3 [...] as of this encounter (statuses as of 03/03/2023) Immunizations Name Administration Dates Next Due COVID-19 [...] Telephone Encounter - Irvin Kramer MD - 03/03/2023 10:31 PM EST Signed Prescriptions: Disp Refills levETIRAcetam 500 MG Oral Tablet (Keppra) 60 Tab*11 Sig: TAKE ONE (1) TABLET BY MOUTH TWICE DAILY IN THE MORNING AND BEFORE BEDTIME Authorizing Provider: IRVIN KRAMER * Telephone Encounter - Sherri Padgett [facility] - 03/02/2023 2:32 PM EDT Pending Prescriptions: Disp Refills levETIRAcetam 500 MG Oral Tablet (Keppra) 60 Tab*10 Sig: TAKE ONE (1) TABLET BY MOUTH TWICE DAILY IN THE MORNING AND BEFORE BEDTIME * Telephone Encounter - Sherri Padgett RPh - 03/02/2023 2:32 PM EDT Refill pharmacists currently not authorized to approve refills for this class of medication per refill protocol. Please approve if appropriate. Thank you, Sherri Padgett, PharmD. Clinical Pharmacist Pharmacy Refill Call Center 03/02/2023, 2:32 PM documented in this encounter Plan of Treatment Upcoming Encounters Date Type Department Care Team (Late st Contact Info) Description 04/19/2023 9:30 AM EST Office Visit Cardiology, [facility] [address] [place] [address] Laina Greer CRNP [address] [place] [address] 05/20/2023 2:00 PM EST Office Visit Gynecology/Obstetrics [facility] [address] [place] [address] Hailey Lee CRNP [address] [place] [address] Health Maintenance Due Date Last Done Comments [...] Additional history exists CKD HGB USE SMARTSET 74000 08/07/202308/06, 08/06/2022, 11/03/2021, Additional history exists Mammogram 08/08/2023 08/07/2022 Albumin/Creatinine Ratio 12/18/2023 023, 10/05/2020, 05/28/2019, Additional history exists CKD PHOS USE SMARTSET 11514 12/18/202311/28, 11/20/2020, 09/06/2017 DTaP,Tdap,and Td Vaccines (3 [...] Advance Directives occurred with: Patient Care Teams Diversified Crops Farmer Relationship Specialty Start Date End Date Irvin Kramer MD [address] [place] [address] PCP - General Family Medicine 04/02/22 documented as of this encounter
--- OUTSIDE RECORDS SUMMARY | 2023-04-22 11:19 | External Medical Summary | Summary of Care ---
Author Name Unknown Organization [facility] Address [address] [place] [address] Phone [phone] Care Team Providers Care Protective Signal Repairer Name Role Phone Irvin Kramer MD Primary Care Provider + Reason for Visit * Reason Comments eRx-Medication Refill Encounter Details Date Type Department Care Team Description 02/01/2023 Refill Family Practice [facility] [address] [facility] [place] [address] Irvin Kramer MD [address] [facility] [address] Lumbar disc disease Allergies Active Allergy Reactions Severity Noted Date Comments Azithromycin Other (Please comment) 03/28/2004 cramps Covid-19 Mrna Vacc (Moderna) 07/24/2021 Severe SOB/ hospitalized. Eggs Or Egg-Derived Products 05/25/2022 Other reaction(s): vomiting Ensure 02/10/2007 Vomiting, diarrhea Mushroom Extract Complex Itching 12/17/2022 Mushrooms Novocain 02/15/2010 hives [place] Extract 05/25/2022 Other reaction(s): Hives Tramadol Seizure High 09/09/2012 documented as of this encounter (statuses as of 02/04/2023) Medications Medication Sig Dispensed Refills Start Date [...] 1 ML Use as directed. 0 Active Figure 8 SurgicalTOUCH DELICA LANCETS 33G MISCIndications:Ty pe 2 diabetes [...] 2 times a day. 60 Tablet 1 01/19/20 22 Active Additional Information Patient not taking.Informant: [...] ns:HTN, goal below 140/80,Coronary artery disease involving nulato heart without angina pectoris, unspecified vessel or [...] Wheezing. 54 g 1 09/06/19 23 Active Fluticasone Furoate-Vilanterol 200-25 MCG/ACT Inhalation Aerosol Powder Breath Activated (BREO ellipta) Inhale 1 Puff by mouth in the morning. Please rinse mouth out after using.. 180 Blister Dosing Unit 1 09/06/19 23 Active Aspirin Low Dose [...] Oral Tablet (pLAVix)Indication s:Coronary artery disease involving nulato heart without angina pectoris, unspecified vessel or [...] (congestive heart failure) (HCC),Coronary artery disease involving nulato coronary artery of nulato heart without angina pectoris,Nonrheuma tic aortic valve [...] daily 180 Capsule 1 01/22/20 23 Active Cyclobenzaprine HCl 10 MG Oral Tablet (Flexeril)Indicati ons:Lumbar disc disease TAKE 1 TABLET BY MOUTH IN THE MORNING AND BEFORE BEDTIME 60 Tablet 0 02/05/20 23 Active Cyclobenzaprine HCl 10 MG Oral Tablet (Flexeril)Indicati ons:Lumbar disc disease TAKE 1 TABLET BY MOUTH IN THE MORNING AND BEFORE BEDTIME 60 Tablet 0 01/12/20 23 023 Discontinued Hospital, Clinic, or Other Facility Administered Medication Ordered Dose Route Frequency Start Date End Date Status lidocaine 1 % inj 21 mgIndications:Cellulitis of arm, left,Abscess of multiple sites of upper arm 21 mg IJ Daily(AM) 09/20/2017 Active medroxyPROGESTERone acetate (DEPO-PROVERA) inj NORBERTO 150 mgIndications:Surveillance for Depo-Provera contraception 150 mg IM [id number] 09/09/2019 Active documented as of this encounter (statuses as of 02/04/2023) Active Problems Problem Noted Date Adrenal adenoma, right 08/10/2022 Overview: 11mm, CT scan 07/2022. Benign by imaging, needs hormonal w/u. Tricuspid valve vegetation 03/20/2022 Chronic kidney disease, stage 3a 022 Overview: Per CKD protocol Chronic hypoxemic respiratory failure Recurrent UTI 12/06/2020 Ureteral duplication, right 12/06/2020 Moderate recurrent major depression 07/30 Chronic diastolic heart failure 08/27/19 Diabetic peripheral neuropathy 9 Chronic hepatitis C without hepatic coma 09/09/2017 Overview: 09/13 dx [facility]. Genotype 1A. Confirmed 2021. New since 2015. Hx shared needles. Coronary artery disease involving nulato heart without angina pectoris 12/19/2016 S/P coronary [...] PCI mid right PDA with single ROJAS [facility]. EF stable 55-60%. Lung nodules inc9mm LLL. ?infection. Consider kailyn 1mo CT. 11/14 Dr Michael VERGARA Trazodone 100mg? Suboxone Dr Max Garcia 06/17 incarcerated 01/14 admit [facility]/Ashkan ODvs suicide attempt. 02/13 d/c to [facility] in [place]. 09/13 ICU/intubated-fungal eclgnh-xrmbz-Qaayume dubliniensis. , hand abscess dayna albicans MED [...] as of this encounter (statuses as of 02/04/2023) Resolved Problems Problem Noted Date Resolved Date Hydronephrosis, right 12/06/2020 04/11/2021 Acute on chronic diastolic congestive heart fail ure 03/03/2020 08/26/2020 Major depressive disorder, recurrent, unspecifie d 12/30/2019 12/14/2021 Uncomplicated opioid dependence 06/23/2019 03/19/2022 Coronary artery disease invo lving nulato coronary artery of nulato heart without angina pectoris 06/23/2019 12/14/2021 Encounter for monitoring Suboxone maintenance th erapy 09/24/2018 12/14/2021 Polysubstance abuse 02/26/2018 03/19/2022 Overview: Fall 2017 rehab [place], etc will establish w/[facility] 02/2018 Suicide attempt [...] 03/11/2013 04/11/2021 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 03/31/2012 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 Cervical incompetence, antepartum 03/02/2010 04/11/2016 Enterococcus UTI 02/16/2010 12/04/2011 Other pulmonary embolism and infarction 02/16/20 10 07/29/2014 Overview: On lovenox 1 ml q 12 hr Supervision of high-risk of young mult igravida 02/13/2010 08/04/2012 Overview: H/o loss at 20-22wks due to ? Incompetent cervix in 1997-no records on file, needs cervical length check 01/11: WBC elevated at 23; platelets elevated at 464, repeat CBC [facility] 02/08: Repeat ultrasound is recommended in [...] Lipid Taxonomy. HTN, goal below 140/90 07/25/2000 Overview: Per HTN Taxonomy. Carpal tunnel syndrome of left wrist 01/19/1999 04/11/2021 Dental disorder NEC 07/20/1998 02/08/2010 Tobacco use disorder 12/22/2007 documented as of this encounter (statuses as of 02/04/2023) Immunizations Name Administration Dates Next Due COVID-19 [...] Telephone Encounter - Irvin Kramer MD - 02/04/2023 10:33 PM EDTSigned Prescriptions: Disp Refills Cyclobenzaprine HCl 10 MG Oral Tablet (Fle*60 Tab*0 Sig: TAKE 1 TABLET BY MOUTH IN THE MORNING AND BEFORE BEDTIME Authorizing Provider: IRVIN KRAMER * Telephone Encounter - Pop Beatty [facility] - 02/02/2023 2:23 PM EDT Pending Prescriptions: Disp Refills Cyclobenzaprine HCl 10 MG Oral Tablet [Pha*60 Tab*0 Sig: TAKE 1 TABLET BY MOUTH IN THE MORNING AND BEFORE BEDTIME * Telephone Encounter - Pop Beatty [facility] - 02/02/2023 2:22 PM EDT Pending Prescriptions: Disp Refills Cyclobenzaprine HCl 10 MG Oral Tablet [Pha*60 Tab*0 Sig: TAKE 1 TABLET BY MOUTH IN THE MORNING AND BEFORE BEDTIME 12/17/2022 (in office), 12/15/2021 (telemedicine) 02/20/2023 If no future appointments scheduled, and last appointment is greater than a year ago, please schedule patient for a follow-up appointment Last date the medication was ordered: 01/11/23 Pharmacy: [id number] [facility] Is this request for a controlled substance?No Patient Phone Numbers [employer] [phone] Labs: Lab Results Component Value Date/Time CREAT [...] Encounters Date Type Specialty Care Team Description 02/20/2023 Office Visit Family Medicine Irvin Kramer MD [address] [place] [address] 04/19/2023 Office Visit Cardiology Laina Greer CRNP [address] [place] [address] Health Maintenance Due Date Last Done Comments [...] Additional history exists CKD HGB USE SMARTSET 99727 08/07/202308/06, 08/06/2022, 11/03/2021, Additional history exists Mammogram 08/08/2023 08/07/2022 Albumin/Creatinine Ratio 12/18/2023 023, 10/05/2020, 05/28/2019, Additional history exists CKD PHOS USE SMARTSET 21230 12/18/202311/28, 11/20/2020, 09/06/2017 DTaP,Tdap,and Td Vaccines (3 [...] Advance Directives occurred with: Patient Care Teams Protective Signal Repairer Relationship Specialty Start Date End Date Irvin Kramer MD [address] [place] [address] PCP - General Family Medicine 04/02/22 documented as of this encounter
--- OUTSIDE RECORDS SUMMARY | 2023-04-22 11:19 | External Medical Summary | Summary of Care ---
Author Name Unknown Organization [facility] Address [address] [place] [address] Phone [phone] Care Team Providers Care Remote Sensing Specialist Name Role Phone Irvin Iverson MD Primary Care Provider + Reason for Visit * Reason Onset Date Comments Medication Question 01/21/2023 Encounter Details Date Type Department Care Team Description 01/21/2023 Telephone Neurology [facility] [place] [address] [place] [address] Gloria Florez PA-C [address] [place] [address] Medication Question Allergies Active Allergy Reactions Severity Noted Date Comments Azithromycin Other (Please comment) 03/28/2004 cramps Covid-19 Mrna Vacc (Moderna) 07/24/2021 Severe SOB/ hospitalized. Eggs Or Egg-Derived Products 05/25/2022 Other reaction(s): vomiting Ensure 02/10/2007 Vomiting, diarrhea Mushroom Extract Complex Itching 12/17/2022 Mushrooms Novocain 02/15/2010 hives [place] Extract 05/25/2022 Other reaction(s): Hives Tramadol Seizure High 09/09/2012 documented as of this encounter (statuses as of 01/23/2023) Medications Medication Sig Dispensed Refills Start Date [...] goal of less than 8.0% ([facility]) Test as directed. Pt test 2 times [...] s:HTN, goal below 140/80,Coronary artery disease involving akutan heart without angina pectoris, unspecified vessel or [...] Oral Tablet (pLAVix)Indications :Coronary artery disease involving akutan heart without angina pectoris, unspecified vessel or lesion type,S/P coronary artery stent placement TAKE 1 TABLET BY MOUTH EVERY DAY 90 Tablet 1 3 Active Acetaminophen ER 650 MG Oral Tablet Extended Release (Tylenol 8 Hour)Indications:Ac kapil nonintractable headache, unspecified headache type Take 1 Tablet by mouth every 8 hours as needed for Pain, Moderate. 30 Tablet 0 3 Active Torsemide 20 MG Oral Tablet (Demadex)Indication s:Chronic diastolic CHF (congestive heart failure) (HCC),Coronary artery disease involving akutan coronary artery of akutan heart without angina pectoris,Nonrheumat ic aortic valve stenosis,HTN, goal below 140/90,Dyslipidemia , goal LDL below 70 Take 1 Tablet by mouth in the morning. 60 Tablet 5 3 Active Additional Information Patient not taking.Informant: Patient, Reported on 12/17/2022 Meclizine HCl 25 MG Oral Tablet (Antivert)Indicatio [...] BEFORE BEDTIME 60 Tablet 0 3 Active Hospital, Clinic, or Other Facility Administered Medication Ordered Dose Route Frequency Start Date End Date Status lidocaine 1 % inj 21 mgIndications:Cellulitis of arm, left,Abscess of multiple sites of upper arm 21 mg IJ Daily(AM) 09/20/2017 Active medroxyPROGESTERone acetate (DEPO-PROVERA) inj NORBERTO 150 mgIndications:Surveillance for Depo-Provera contraception 150 mg IM [id number] 09/09/2019 Active documented as of this encounter (statuses as of 01/23/2023) Active Problems Problem Noted Date Adrenal adenoma, [...] without hepatic coma 09/09/2017 Overview: 09/13 dx [facility]. Genotype 1A. Confirmed 2021. New since 2015. Hx shared needles. Coronary artery disease involving akutan heart without angina pectoris 12/19/2016 S/P coronary [...] PCI mid right PDA with single ROJAS [facility]. EF stable 55-60%. Lung nodules inc9mm LLL. ?infection. Consider kailyn 1mo CT. 11/14 Dr Michael LEDESMA Trazodone 100mg? Suboxone Dr Max Garcia 06/17 incarcerated 01/14 admit [facility]/[place]kan ODvs suicide attempt. 02/[facility] [place] 09/13 ICU/intubated-fungal bnaesr-mkife-Asdiwlh dubliniensis. , hand abscess dayna albicans MED [...] as of this encounter (statuses as of 01/23/2023) Resolved Problems Problem Noted Date Resolved Date Hydronephrosis, right 12/06/2020 04/11/2021 Acute on chronic diastolic congestive heart fail ure 03/03/2020 08/26/2020 Major depressive disorder, recurrent, unspecifie d 12/30/2019 12/14/2021 Uncomplicated opioid dependence 06/23/2019 03/19/2022 Coronary artery disease invo lving akutan coronary artery of akutan heart without angina pectoris 06/23/2019 12/14/2021 Encounter for monitoring Suboxone maintenance th erapy 09/24/2018 12/14/2021 Polysubstance abuse 02/26/2018 03/19/2022 Overview: Fall 2017 rehab [place], etc will establish w[facility] 02/2018 Suicide attempt [...] 03/11/2013 04/11/2021 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 03/31/2012 015 residential current use of anticoagulant therapy 0 08/07/2010 12/04/2011 Overview: ICD-10 update of inactive term Anticoagulation management encounter 08/07/2010 12/04/2011 ADVANCE DIRECTIVE INFORMATION 03/02/2010 Overview: No, Advance Directive brochure offered , patient declined. Cervical incompetence, antepartum 03/02/2010 04/11/2016 Enterococcus UTI 02/16/2010 12/04/2011 Other pulmonary embolism and infarction 02/16/20 10 07/29/2014 Overview: On lovenox 1 ml q 12 hr Supervision of high-risk of swathi [place]av[place] 02/13/2010 08/04/2012 Overview: H/o loss at 20-22wks [...] for chromosome abnormality. Supervision of high-risk of swathi [place]ahertyavida 01/11/2010 02/08/2010 Overview: H/o loss at 20-22 [...] DM type 2, not at goal 09/01/2004 10/200 9 Overview: Modified per Diabetes protocol #14. [...] as of this encounter (statuses as of 01/23/2023) Immunizations Name Administration Dates Next Due COVID-19 [...] encounter Miscellaneous Notes * Telephone Encounter - Viry Rosenberg LPN - 01/21/2023 9:22 AM EDT Pt currently on Gabapentin 300mg TID. Okay to increase to 600mg? * Telephone Encounter - Radha Leija CPhT - 01/21/2023 8:36 AM EDT Patient requesting refills for Gabapentin 600 MG Oral Tablet (Neurontin) . Upon chart review, medication is listed as discontinued, with discontinuation reason as "none". Please advise if you wish tocontinue this therapy for the patient. Pt said she wants to go back on the 600 MG. Thank you, Radha Leija Conference Interpreter [facility] ([facility]) 01/21/2023, 8:36 AM documented in this encounter Plan of Treatment Upcoming Encounters Date Type Specialty Care Team Description 02/20/2023 Office Visit Family Medicine Irvin Iverson MD [address] [place] [address] 04/19/2023 Office Visit Cardiology Laina Greer CRNP [address] [place] [address] Health Maintenance Due Date Last Done Comments [...] (#1) 2022 02/10/2021, 03/03/2020 HbA1c 2023 08/06/2022, 06/12/2020, 11/04/2019, Additional history exists GFR 06/19/2023 12/17/2022, 07/29, 08/06/2022, Additional history exists PAP SMEAR-ANNUAL AGES 18-100 07/26/2023 07/25/2022, 09/24/2017, 07/14/2014, Additional history exists CKD HGB USE SMARTSET 89508 08/07/202308/06, 08/06/2022, 11/03/2021, Additional history exists Mammogram 08/08/2023 08/07/2022 Albumin/Creatinine Ratio 12/18/2023 023, 10/05/2020, 05/28/2019, Additional history exists CKD PHOS USE SMARTSET 22208 12/18/202311/28, 11/20/2020, 09/06/2017 DTaP,Tdap,and Td Vaccines (3 [...] Advance Directives occurred with: Patient Care Teams Remote Sensing Specialist Relationship Specialty Start Date End Date Irvin Iverson MD [address] [place] [address] PCP - General Family Medicine 04/02/22 documented as of this encounter
--- OUTSIDE RECORDS SUMMARY | 2023-04-22 11:19 | External Medical Summary | Summary of Care ---
Author Name Unknown Organization [facility] Address [address] [place] [address] Phone [phone] Care Team Providers Care Speeder Tender Name Role Phone Irvin Iverson MD Primary Care Provider + Reason for Visit * Reason Comments eRx-Medication Refill Encounter Details Date Type Department Care Team Description 01/30/2023 Refill Family Practice [facility] [address] [place] [address] Irvin Iverson MD [address] [address] Chronic diastolic CHF (congestive heart failure) (HCC); Coronary artery disease involving wiyot coronary artery of wiyot heart without angina pectoris; Nonrheumatic aortic valve stenosis; HTN, goal below 140/90; Dyslipidemia, goal LDL below 70 Allergies Active Allergy Reactions Severity Noted Date Comments Azithromycin Other (Please comment) 03/28/2004 cramps Covid-19 Mrna Vacc (Moderna) 07/24/2021 Severe SOB/ hospitalized. Eggs Or Egg-Derived Products 05/25/2022 Other reaction(s): vomiting Ensure 02/10/2007 Vomiting, diarrhea Mushroom Extract Complex Itching 12/17/2022 Mushrooms Novocain 02/15/2010 hives [place] Extract 05/25/2022 Other reaction(s): Hives Tramadol Seizure High 09/09/2012 documented as of this encounter (statuses as of 01/31/2023) Medications Medication Sig Dispensed Refills Start Date End Date Status LANCET DEVICE MISCIndications:DM type 2, not at goal ([facility]) use as directed - for One Touch Ultra 1 box 5 0 Active Additional Information Patient not taking.Informant: Patient, Reported on 12/17/2022 Blood Glucose Monitoring Suppl (Simulation ApplianceTOUCH VERIO FLEX SYSTEM) w/Device KIT Use as [...] s:HTN, goal below 140/80,Coronary artery disease involving wiyot heart without angina pectoris, unspecified vessel or [...] Oral Tablet (pLAVix)Indications :Coronary artery disease involving wiyot heart without angina pectoris, unspecified vessel or [...] (congestive heart failure) (HCC),Coronary artery disease involving wiyot coronary artery of wiyot heart without angina pectoris,Nonrheumat ic aortic valve [...] times daily 180 Capsule 1 3 Active Hospital, Clinic, or Other Facility Administered Medication Ordered Dose Route Frequency Start Date End Date Status lidocaine 1 % inj 21 mgIndications:Cellulitis of arm, left,Abscess of multiple sites of upper arm 21 mg IJ Daily(AM) 09/20/2017 Active medroxyPROGESTERone acetate (DEPO-PROVERA) inj NORBERTO 150 mgIndications:Surveillance for Depo-Provera contraception 150 mg IM [id number] 09/09/2019 Active documented as of this encounter (statuses as of 01/31/2023) Active Problems Problem Noted Date Adrenal adenoma, [...] without hepatic coma 09/09/2017 Overview: 09/13 dx [facility]. Genotype 1A. Confirmed 2021. New since 2015. Hx shared needles. Coronary artery disease involving wiyot heart without angina pectoris 12/19/2016 S/P coronary [...] PCI mid right PDA with single ROJAS [facility]. EF stable 55-60%. Lung nodules inc9mm LLL. ?infection. Consider kailyn 1mo CT. 11/14 Dr Michael LEDESMA Trazodone 100mg? Suboxone Dr Max Garcia 06/17 incarcerated 01/14 admit [facility]/Ashkan ODvs suicide attempt. 02/[facility] [place] 09/13 ICU/intubated-fungal htjubl-yjpor-Ouyiczw dubliniensis. , hand abscess dayna albicans MED [...] as of this encounter (statuses as of 01/31/2023) Resolved Problems Problem Noted Date Resolved Date Hydronephrosis, right 12/06/2020 04/11/2021 Acute on chronic diastolic congestive heart fail ure 03/03/2020 08/26/2020 Major depressive disorder, recurrent, unspecifie d 12/30/2019 12/14/2021 Uncomplicated opioid dependence 06/23/2019 03/19/2022 Coronary artery disease invo lving wiyot coronary artery of wiyot heart without angina pectoris 06/23/2019 12/14/2021 Encounter for monitoring Suboxone maintenance th erapy 09/24/2018 12/14/2021 Polysubstance abuse 02/26/2018 03/19/2022 Overview: Fall 2017 rehab [place], etc will establish w[facility] 02/2018 Suicide attempt [...] 03/11/2013 04/11/2021 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 03/31/2012 015 [facility] current use of anticoagulant therapy 0 08/07/2010 12/04/2011 Overview: ICD-10 update of inactive term Anticoagulation management encounter 08/07/2010 12/04/2011 ADVANCE DIRECTIVE INFORMATION 03/02/2010 Overview: No, Advance Directive brochure offered , patient declined. Cervical incompetence, antepartum 03/02/2010 04/11/2016 Enterococcus UTI 02/16/2010 12/04/2011 Other pulmonary embolism and infarction 02/16/20 10 07/29/2014 Overview: On lovenox 1 ml q 12 hr Supervision of high-risk of young myriam igravida 02/13/2010 08/04/2012 Overview: H/o loss at 20-22wks due to ? Incompetent cervix in 1997-no records on file, needs cervical length check 01/11: WBC elevated at 23; platelets elevated at 464, [facility] Repeat ultrasound is recommended in 3 [...] plt elevated at 464; repeat CBC at [facility] with severity to be determined 10/20/2009 [...] DM type 2, not at goal 09/01/2004 9 Overview: Modified per Diabetes protocol #14. [...] as of this encounter (statuses as of 01/31/2023) Immunizations Name Administration Dates Next Due COVID-19 [...] encounter Miscellaneous Notes * Telephone Encounter - Pop Beatty RPh - 01/31/2023 12:43 PM EDT Refused Prescriptions: Disp Refills Torsemide 20 MG Oral Tablet (Demadex) 60 Tab*10 Sig: TAKE 1 TABLET BY MOUTH IN THE MORNING AND TAKE 1 TABLET BEFORE BEDTIMERefused By: POP BEATTYReasonfor Refusal: Too soon documented in this encounter Plan of Treatment Upcoming Encounters Date Type Specialty Care Team Description 02/20/2023 Office Visit Family Medicine Irvin Iverson MD [address] [place] [address] 04/19/2023 Office Visit Cardiology Laina Greer CRNP [address] [place] [address] Health Maintenance Due Date Last Done Comments [...] (#1) 2022 02/10/2021, 03/03/2020 HbA1c 2023 08/06/2022, 0612/2020, 11/04/2019, Additional history exists GFR 06/19/2023 12/17/2022, 07/29, 08/06/2022, Additional history exists PAP SMEAR-ANNUAL AGES 18-100 07/26/2023 07/25/2022, 09/24/2017, 07/14/2014, Additional history exists CKD HGB USE SMARTSET 49704 08/07/202308/06, 08/06/2022, 11/03/2021, Additional history exists Mammogram 08/08/2023 08/07/2022 Albumin/Creatinine Ratio 12/18/2023 023, 10/05/2020, 05/28/2019, Additional history exists CKD PHOS USE SMARTSET 75062 12/18/202311/28, 11/20/2020, 09/06/2017 DTaP,Tdap,and Td Vaccines (3 [...] as of this encounter Visit Diagnoses Diagnosis Chronic diastolic CHF (congestive heart failure) (HCC) Chronic diastolic heart failure Coronary artery disease involving wiyot coronary artery of wiyot heart without angina pectoris Nonrheumatic aortic valve stenosis Aortic valve disorders HTN, goal below 140/90 Unspecified essential hypertension Dyslipidemia, goal LDL below 70 Other and unspecified hyperlipidemia documented in this encounter Advance Directives Latest Code Status on File Code Status Date Activated Date Inactivated Comments Full Code 02/15/2010 3:36 AM 02/16/2010 9:42 PM Thi s order reflects the patients wishes and were consensually agreed upon. Question Answer Comments Discussion of Advance Directives occurred with: Patient Care Teams Speeder Tender Relationship Specialty Start Date End Date Irvin Iverson MD [address] [place] [address] PCP - General Family Medicine 04/02/22 documented as of this encounter
--- OUTSIDE RECORDS SUMMARY | 2023-04-22 11:19 | External Medical Summary | Summary of Care ---
Author Name Unknown Organization [facility] Address [address] [place] [address] Phone [phone] Care Team Providers Care Radiophone Operator Name Role Phone Irvin Kramer MD Primary Care Provider + Reason for Visit * Reason Comments eRx-Medication Refill Encounter Details Date Type Department Care Team ([facility] Contact Info) Description 02/28/2023 Refill Family Practice [facility] [address] [place] [address] Irvin Kramer MD [address] [facility] [place] [address] Lumbar disc disease Allergies Active Allergy Reactions Criticality Noted Date Comments Azithromycin Other (Please comment) 03/28/2004 cramps Covid-19 Mrna Vacc (Moderna) 07/24/2021 Severe SOB/ hospitalized. Eggs Or Egg-Derived Products 05/25/2022 Other reaction(s): vomiting Ensure 02/10/2007 Vomiting, diarrhea Mushroom Extract Complex Itching 12/17/2022 Mushrooms Novocain 02/15/2010 hives [place] Extract 05/25/2022 Other reaction(s): Hives Tramadol Seizure High 09/09/2012 documented as of this encounter (statuses as of 03/01/2023) Medications Medication Sig Dispensed Refills Start Date [...] ns:HTN, goal below 140/80,Coronary artery disease involving tanacross heart without angina pectoris, unspecified vessel or [...] Active Escitalopram Oxalate 20 MG Oral Tablet (Lexapro)Pedrotio ns:Depression with anxiety Take 1 Tablet by [...] Oral Tablet (pLAVix)Indication s:Coronary artery disease involving tanacross heart without angina pectoris, unspecified vessel or [...] (congestive heart failure) (HCC),Coronary artery disease involving tanacross coronary artery of tanacross heart without angina pectoris,Nonrheuma tic aortic valve [...] BEDTIME 60 Tablet 0 03/01/20 23 Active Cyclobenzaprine HCl 10 MG Oral Tablet (Flexeril)Indicati ons:Lumbar disc disease TAKE 1 TABLET BY MOUTH IN THE MORNING AND BEFORE BEDTIME 60 Tablet 0 02/05/20 23 023 Discontinued Hospital, Clinic, or Other Facility Administered Medication Ordered Dose Route Frequency Start Date End Date Status lidocaine 1 % inj 21 mgIndications:Cellulitis of arm, left,Abscess of multiple sites of upper arm 21 mg IJ Daily(AM) 09/20/2017 Active medroxyPROGESTERone acetate (DEPO-PROVERA) inj NORBERTO 150 mgIndications:Surveillance for Depo-Provera contraception 150 mg IM [id number] 09/09/2019 Active documented as of this encounter (statuses as of 03/01/2023) Active Problems Problem Noted Date Diagnosed Date [...] without hepatic coma 018 Overview: 09/13 dx [facility]. Genotype 1A. Confirmed 2021. New since 2015. Hx shared needles. Coronary artery disease invo lving tanacross heart without angina pectoris 12/19/2016 S/P coronary [...] PCI mid right PDA with single ROJAS [facility]. EF stable 55-60%. Lung nodules inc9mm LLL. ?infection. Consider kailyn 1mo CT. 11/14 Dr Michael VERGARA Trazodone 100mg? Suboxone Dr Max Garcia 06/17 incarcerated 01/14 admit [facility]/Ashkan ODvs suicide attempt. 02/13 d/c to [facility] in [place]. 09/13 ICU/intubated-fungal lytdgw-tjetn-Pouikco dubliniensis. , hand abscess dayna albicans MED [...] as of this encounter (statuses as of 03/01/2023) Resolved Problems Problem Noted Date Diagnosed Date Resolved Date Hydronephrosis, right 12/06/20202020 Acute on chronic diastolic c ongestive heart failure 03/03/2020 08/26/2020 Major depressive disorder, r ecurrent, unspecified 12/30/2019 12/14/2021 Uncomplicated opioid dependence 06/23/2019 03/19/2022 Coronary artery disease invo lving tanacross coronary artery of tanacross heart without angina pectoris 06/23/2019 12/14/2021 Encounter for monitoring Sub oxone maintenance therapy 09/24/2018 12/14/2021 Polysubstance abuse 02/26/2018 03/19/20 22 Overview: Fall 2017 rehab [facility] will establish w/[facility] 02/2018 Suicide attempt [...] as of this encounter (statuses as of 03/01/2023) Immunizations Name Administration Dates Next Due COVID-19 [...] Telephone Encounter - Irvin Kramer MD - 03/01/2023 4:38 PM EDTSigned Prescriptions: Disp Refills Cyclobenzaprine HCl 10 MG Oral Tablet (Fle*60 Tab*0 Sig: TAKE 1 TABLET BY MOUTH IN THE MORNING AND BEFORE BEDTIME Authorizing Provider: IRVIN KRAMER * Telephone Encounter - Pop Beatty [facility] - 03/01/2023 9:36 AM EDT Pending Prescriptions: Disp Refills Cyclobenzaprine HCl 10 MG Oral Tablet [Pha*60 Tab*0 Sig: TAKE 1 TABLET BY MOUTH IN THE MORNING AND BEFORE BEDTIME * Telephone Encounter - Pop Beatty RPh - 03/01/2023 9:36 AM EDT Pending Prescriptions: Disp Refills Cyclobenzaprine HCl 10 MG Oral Tablet [Pha*60 Tab*0 Sig: TAKE 1 TABLET BY MOUTH IN THE MORNING AND BEFORE BEDTIME 12/17/2022 (in office), 12/15/2021 (telemedicine) Visit date not found If no future appointments scheduled, and last appointment is greater than a year ago, please schedule patient for a follow-up appointment Last date the medication was ordered: 02/04/23 Pharmacy: [id number] [place] Is this request for a controlled substance?No Patient Phone Numbers [facility] TEK [phone] Labs: Lab Results Component Value Date/Time CREAT [...] 04/19/2023 9:30 AM EST Office Visit Cardiology, [facility] [address] [place] [address] Laina Greer CRNP [address] [place] [address] 05/20/2023 2:00 PM EST Office Visit Gynecology/Obstetrics [facility] [address] [place] [address] Hailey Lee CRNP [address] [place] [address] Health Maintenance Due Date Last Done Comments [...] Additional history exists CKD HGB USE SMARTSET 60364 08/07/202308/06, 08/06/2022, 11/03/2021, Additional history exists Mammogram 08/08/2023 08/07/2022 Albumin/Creatinine Ratio 12/18/2023 023, 10/05/2020, 05/28/2019, Additional history exists CKD PHOS USE SMARTSET 85967 12/18/202311/28, 11/20/2020, 09/06/2017 DTaP,Tdap,and Td Vaccines (3 [...] Advance Directives occurred with: Patient Care Teams Radiophone Operator Relationship Specialty Start Date End Date Irvin Kramer MD [address] [place] [address] PCP - General Family Medicine 04/02/22 documented as of this encounter
--- OUTSIDE RECORDS SUMMARY | 2023-04-22 11:19 | External Medical Summary | Summary of Care ---
Author Name Unknown Organization [facility] Address [address] [place] [address] Phone [phone] Care Team Providers Care Property Portfolio Officer Name Role Phone Irvin Iverson MD Primary Care Provider + Reason for Visit * Reason Onset Date Comments Fax Refill 03/04/2023 Encounter Details Date Type Department Care Team ([facility] Contact Info) Description 03/04/2023 Telephone Cardiology, [facility] [address] [place] [address] Laina Greer CRNP [address] [place] [address] Fax Refill Allergies Active Allergy Reactions Criticality Noted Date Comments Azithromycin Other (Please comment) 03/28/2004 cramps Covid-19 Mrna Vacc (Moderna) 07/24/2021 Severe SOB/ hospitalized. Eggs Or Egg-Derived Products 05/25/2022 Other reaction(s): vomiting Ensure 02/10/2007 Vomiting, diarrhea Mushroom Extract Complex Itching 12/17/2022 Mushrooms Novocain 02/15/2010 hives [place] Extract 05/25/2022 Other reaction(s): Hives Tramadol Seizure High 09/09/2012 documented as of this encounter (statuses as of 03/04/2023) Medications Medication Sig Dispensed Refills Start Date End Date Status LANCET DEVICE MISCIndications:DM type 2, not at goal (HCC) use as directed - for One Touch Ultra 1 box 5 0 Active Additional Information Patient not taking.Informant: Patient, Reported on 12/17/2022 Blood Glucose Monitoring Suppl ([employer] SystemsTOUCH VERIO FLEX SYSTEM) w/Device KIT Use as [...] ns:HTN, goal below 140/80,Coronary artery disease involving chilkoot heart without angina pectoris, unspecified vessel or [...] Oral Tablet (pLAVix)Indication s:Coronary artery disease involving chilkoot heart without angina pectoris, unspecified vessel or [...] BEFORE BEDTIME 60 Tablet 11 3 Active Torsemide 20 MG Oral Tablet (Demadex)Indicatio ns:Chronic diastolic CHF (congestive heart failure) (HCC),Coronary artery disease involving chilkoot coronary artery of chilkoot heart without angina pectoris,Nonrheuma tic aortic valve stenosis,HTN, goal below 140/90 Take 1 Tablet by mouth in the morning. 90 Tablet 3 3 Active Torsemide 20 MG Oral Tablet (Demadex)Indicatio ns:Chronic diastolic CHF (congestive heart failure) (HCC),Coronary artery disease involving chilkoot coronary artery of chilkoot heart without angina pectoris,Nonrheuma tic aortic valve stenosis,HTN, goal below 140/90,Dyslipidemi a, goal LDL below 70 Take 1 Tablet by mouth in the morning. 60 Tablet 5 3 03/04/20 23 Discontinu ed(Refill) Hospital, Clinic, or Other Facility Administered Medication Ordered Dose Route Frequency Start Date End Date Status lidocaine 1 % inj 21 mgIndications:Cellulitis of arm, left,Abscess of multiple sites of upper arm 21 mg IJ Daily(AM) 09/20/2017 Active medroxyPROGESTERone acetate (DEPO-PROVERA) inj NORBERTO 150 mgIndications:Surveillance for Depo-Provera contraception 150 mg IM [id number] 09/09/2019 Active documented as of this encounter [...] shared needles. Coronary artery disease invo lving chilkoot heart without angina pectoris 12/19/2016 S/P coronary [...] CENTER/Ashkan ODvs suicide attempt. 02/13 [facility] [place] 09/13 ICU/intubated-fungal fyhrid-nhidd-Uzjqgqk dubliniensis. 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 documented in this encounter Plan of Treatment Upcoming Encounters Date Type Department Care Team (Late st Contact Info) Description 04/19/2023 9:30 AM EST Office Visit Cardiology, [facility] [address] [place] [address] Laina Greer CRNP [address] [place] [address] 05/20/2023 2:00 PM EST Office Visit Gynecology/Obstetrics [facility] [address] [place] [address] Hailey Lee CRNP [address] [place] [address] Health Maintenance Due Date Last Done Comments [...] 08/06/2021 DISCUSS TOBACCO CESSATION (REFER TO SMARTSET #7762) 08/04/2022 08/04/2021, 08/28/2017 COVID-19 Vaccine ( - [...] Additional history exists CKD HGB USE SMARTSET 91707 08/07/202308/06, 08/06/2022, 11/03/2021, Additional history exists Mammogram 08/08/2023 08/07/2022 Albumin/Creatinine Ratio 12/18/2023 023, 10/05/2020, 05/28/2019, Additional history exists CKD PHOS USE SMARTSET 41121 12/18/202311/28, 11/20/2020, 09/06/2017 DTaP,Tdap,and Td Vaccines (3 [...] diastolic heart failure Coronary artery disease involving chilkoot coronary artery of chilkoot heart without angina pectoris Nonrheumatic aortic valve [...] Advance Directives occurred with: Patient Care Teams Property Portfolio Officer Relationship Specialty Start Date End Date Irvin Iverson MD [address] [place] [address] PCP - General Family Medicine 04/02/22 documented as of this encounter
--- OUTSIDE RECORDS SUMMARY | 2023-04-22 11:19 | External Medical Summary | Summary of Care ---
Author Name Unknown Organization [facility] Address [address] [place] [address] Phone [phone] Care Team Providers Care Payable Representative Name Role Phone Irvin Iverson MD Primary Care Provider + Reason for Visit * Reason Comments eRx-Medication Refill Encounter Details Date Type Department Care Team Description 02/04/2023 Refill Family Practice [facility] [address] [facility] [place] [address] Irvin Iverson MD [address] [place] [address] Type 2 diabetes mellitus with hemoglobin A1c goal of less than 8.0% ([facility]) Allergies Active Allergy Reactions Severity Noted Date Comments Azithromycin Other (Please comment) 03/28/2004 cramps Covid-19 Mrna Vacc (Moderna) 07/24/2021 Severe SOB/ hospitalized. Eggs Or Egg-Derived Products 05/25/2022 Other reaction(s): vomiting Ensure 02/10/2007 Vomiting, diarrhea Mushroom Extract Complex Itching 12/17/2022 Mushrooms Novocain 02/15/2010 hives [place] Extract 05/25/2022 Other reaction(s): Hives Tramadol Seizure High 09/09/2012 documented as of this encounter (statuses as of 2023) Medications Medication Sig Dispensed Refills Start Date End Date Status LANCET DEVICE MISCIndications:DM type 2, not at goal ([facility]) use as directed - for [...] s:HTN, goal below 140/80,Coronary artery disease involving huslia heart without angina pectoris, unspecified vessel or [...] Oral Tablet (pLAVix)Indications :Coronary artery disease involving huslia heart without angina pectoris, unspecified vessel or lesion type,S/P coronary artery stent placement TAKE 1 TABLET BY MOUTH EVERY DAY 90 Tablet 1 3 Active Acetaminophen ER 650 MG Oral Tablet Extended Release (Tylenol 8 Hour)Indications:Ac [place] nonintractable headache, unspecified headache type Take 1 Tablet by mouth every 8 hours as needed for Pain, Moderate. 30 Tablet 0 3 Active Torsemide 20 MG Oral Tablet (Demadex)Indication s:Chronic diastolic CHF (congestive heart failure) (HCC),Coronary artery disease involving huslia coronary artery of huslia heart without angina pectoris,Nonrheumat ic aortic valve [...] times daily 180 Capsule 1 3 Active Cyclobenzaprine HCl 10 MG Oral [...] mgIndications:Surveillance for Depo-Provera contraception 150 mg IM [id number] 09/09/2019 Active documented as of this encounter (statuses as of 2023) Active Problems Problem Noted Date Adrenal adenoma, [...] without hepatic coma 09/09/2017 Overview: 09/13 dx [facility]. Genotype 1A. Confirmed 2021. New since 2015. Hx shared needles. Coronary artery disease involving huslia heart without angina pectoris 12/19/2016 S/P coronary [...] mid right PDA with single ROJAS [facility]. EF stable 55-60%. Lung nodules inc9mm LLL. ?infection. Consider kailyn 1mo CT. 11/14 Dr Michael LEDESMA Trazodone 100mg? Suboxone Dr Max Garcia 06/17 incarcerated 01/14 admit [facility]/Ashkan ODvs suicide attempt. 02/13 d/c to [facility] in [place]. 09/13 ICU/intubated-fungal bdxadi-jpuez-Ynojqed dubliniensis. , hand abscess dayna albicans MED [...] as of this encounter (statuses as of 2023) Resolved Problems Problem Noted Date Resolved Date Hydronephrosis, right 12/06/2020 04/11/2021 Acute on chronic diastolic congestive heart fail ure 03/03/2020 08/26/2020 Major depressive disorder, recurrent, unspecifie d 12/30/2019 12/14/2021 Uncomplicated opioid dependence 06/23/2019 03/19/2022 Coronary artery disease invo lving huslia coronary artery of huslia heart without angina pectoris 06/23/2019 12/14/2021 Encounter for monitoring Suboxone maintenance th erapy 09/24/2018 12/14/2021 Polysubstance abuse 02/26/2018 03/19/2022 Overview: Fall 2017 rehab [facility], etc will establish w/[facility] 02/2018 Suicide attempt by drug ingestion 02/20/2018 02/26/2018 Overview: gabapentin Seizure 09/09/2017 07/19/2020 Overview: 09/13 seizure noted. ?prior approx 5ya --placed on gabapentin Homeless 06/14/2017 11/27/2018 Tobacco abuse 04/15/2017 08/12/2017 Systolic murmur 03/04/2016 04/11/2021 Overview: 09/13 STEVEN [facility]-congential thickening Partial fusion aortica valve, trivial AI, no vegetation. 2012 TTE--mild-mod [place], ?bicuspid. Diverticulosis of large intestine without hemorr quyen 02/15/2016 01/18/2017 Leukocytosis 09/03/2014 12/14/2021 Overview: Chronic, s/p bone marrow biopsy Sciatica 03/11/2013 04/11/2021 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 03/31/2012 05/08/2 015 long-term current use of anticoagulant therapy 0 08/07/2010 [...] platelets [facility] at 464, [facility] Repeat ultrasound is recommended in 3 [...] abnormality. Supervision of high-risk of young myriam igravida 01/11/2010 02/08/2010 Overview: H/o loss at 20-22 [...] as of this encounter (statuses as of 2023) Immunizations Name Administration Dates Next Due COVID-19 [...] encounter Miscellaneous Notes * Telephone Encounter - Celso Shook [facility] - 2023 5:20 PM EDT Refused Prescriptions: Disp Refills Aspirin Low Dose 81 MG Oral Tablet Delayed*30 Tab*10 Sig: TAKE 1 TABLET BY MOUTH IN THE MORNINGRefused By: CELSO SHOOK for Refusal: Too soon------- documented in this encounter Plan of Treatment Upcoming Encounters Date Type Specialty Care Team Description 02/20/2023 Office Visit Family Medicine Irvin Iverson MD [address] [place] [address] 04/19/2023 Office Visit Cardiology Laina Greer CRNP [address] [place] [address] Health Maintenance Due Date Last Done Comments [...] 08/04/2022 08/04/2021, 08/28/2017 COVID-19 Vaccine ( - season) 2022 09/16/2020 Influenza Vaccine (FLU shot) (#1) 2022 02/10/2021, 03/03/2020 Cologuard 2023 Colonoscopy 2023 Colorectal Cancer Screening 2023 Fecal Occult Blood Test 2023 HbA1c 2023 08/06/2022, 06/0 12/2020, 11/04/2019, Additional history exists Sigmoidoscopy 2023 GFR 06/19/2023 12/17/2022, 07/29, 08/06/2022, Additional history exists PAP SMEAR-ANNUAL AGES 18-100 07/26/2023 07/25/2022, 09/24/2017, 07/14/2014, Additional history exists CKD HGB USE SMARTSET 56292 08/07/202308/06, 08/06/2022, 11/03/2021, Additional history exists Mammogram 08/08/2023 08/07/2022 Albumin/Creatinine Ratio 12/18/2023 023, 10/05/2020, 05/28/2019, Additional history exists CKD PHOS USE SMARTSET 49526 12/18/202311/28, 11/20/2020, 09/06/2017 DTaP,Tdap,and Td Vaccines (3 [...] A1c goal of less than 8.0% (HCC) documented in this encounter Advance Directives Latest Code Status on File Code Status Date Activated Date Inactivated Comments Full Code 02/15/2010 3:36 AM 02/16/2010 9:42 PM Thi s order reflects the patients wishes and were consensually agreed upon. Question Answer Comments Discussion of Advance Directives occurred with: Patient Care Teams Payable Representative Relationship Specialty Start Date End Date Irvin Iverson MD [address] [place] [address] PCP - General Family Medicine 04/02/22 documented as of this encounter
--- OUTSIDE RECORDS SUMMARY | 2023-04-22 11:20 | External Medical Summary | Summary of Care ---
Author Name Unknown Organization [facility] Address [address] [place] [address] Phone [phone] Care Team Providers Care Dressmaker Or Tailor Name Role Phone Irvin Iverson MD Primary Care Provider + Reason for Visit * Reason Onset Date Comments Medication Refill 01/21/2023 Encounter Details Date Type Department Care Team Description 01/21/2023 Telephone Neurology [facility] [place] [address] [place] [address] Gloria Florez PA-C [address] [place] [address] Medication Refill Allergies Active Allergy Reactions Severity Noted Date Comments Azithromycin Other (Please comment) 03/28/2004 cramps Covid-19 Mrna Vacc (Moderna) 07/24/2021 Severe SOB/ hospitalized. Eggs Or Egg-Derived Products 05/25/2022 Other reaction(s): vomiting Ensure 02/10/2007 Vomiting, diarrhea Mushroom Extract Complex Itching 12/17/2022 Mushrooms Novocain 02/15/2010 hives [place] Extract 05/25/2022 Other reaction(s): Hives Tramadol Seizure [...] hemoglobin A1c goal of less than 8.0% ([facility]) Test as directed. Pt test 2 times [...] s:HTN, goal below 140/80,Coronary artery disease involving [place] heart without angina pectoris, unspecified vessel or [...] Oral Tablet (pLAVix)Indications :Coronary artery disease involving [place] heart without angina pectoris, unspecified vessel or lesion type,S/P coronary artery stent placement TAKE 1 TABLET BY MOUTH EVERY DAY 90 Tablet 1 3 Active Acetaminophen ER 650 MG Oral Tablet Extended Release (Tylenol 8 Hour)Indications:[place] nonintractable headache, unspecified headache type Take 1 Tablet by mouth every 8 hours as needed for Pain, Moderate. 30 Tablet 0 3 Active Torsemide 20 MG Oral Tablet (Demadex)Indication s:Chronic diastolic CHF (congestive heart failure) (HCC),Coronary artery disease involving [place] coronary artery of [place] heart without angina pectoris,Nonrheumat ic aortic valve [...] for Dizziness. 90 Tablet 3 3 Active Gabapentin 300 MG Oral Capsule (Neurontin) TAKE 1 CAPSULE BY MOUTH THREE TIMES A DAY 90 Capsule 1 3 Active Ferrous Sulfate 325 (65 Fe) MG Oral Tablet (Feosol)Indications :Iron deficiency anemia, unspecified iron deficiency anemia type Take 1 Tablet by mouth every other day. 45 Tablet 3 3 Active Cyclobenzaprine HCl 10 MG Oral Tablet (Flexeril)Indicatio ns:Lumbar disc disease TAKE 1 TABLET BY MOUTH IN THE MORNING AND BEFORE BEDTIME 60 Tablet 0 3 Active Gabapentin 100 MG Oral Capsule (Neurontin) Take 1 cap three times daily with 300 mg tablets for a total of 400 mg three time daily 90 Capsule 2 3 Active Hospital, Clinic, or Other Facility Administered Medication Ordered Dose Route Frequency Start Date End Date Status lidocaine 1 % inj 21 mgIndications:Cellulitis of arm, left,Abscess of multiple sites of upper arm 21 mg IJ Daily(AM) 09/20/2017 Active medroxyPROGESTERone acetate (DEPO-PROVERA) inj NORBERTO 150 mgIndications:Surveillance for Depo-Provera contraception 150 mg IM [id number] 09/09/2019 Active documented as of this encounter [...] hepatic coma 09/09/2017 Overview: 09/13 dx [facility]. Genotype 1A. Confirmed 2021. New since 2015. Hx shared needles. Coronary artery disease involving [place] heart without angina pectoris 12/19/2016 S/P coronary [...] mid right PDA with single ROJAS [facility]. EF stable 55-60%. Lung nodules inc9mm LLL. ?infection. Consider kailyn 1mo CT. 11/14 Dr Michael LEDESMA Trazodone 100mg? Suboxone Dr Max Garcia 06/17 incarcerated 01/14 admit [facility] ODvs suicide attempt. 02/13 d[facility] [place]. 09/13 ICU/intubated-fungal ehqfqy-xubdi-Pvrxjzg dubliniensis. 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 Thanks, Marissa Garsia [facility] Clinical Pharmacist [facility] ([facility]) (Formerly Telepharmacy) [phone] * Telephone Encounter - RICHARDSON Fall - 01/21/2023 10:38 AM EDT Pt calling in to request a dose change on their gabapentin Current dose: 400 mg Requested dose: 600 mg Reason for request: 400 not working Preferred pharmacy: [id number] Patient unwilling to speak with pharmacist at this time. Routing to pharmacist pool to advise. Thank you, Jinny Acevedo CPhT Retail Service Technician II [facility])(Formerly Telepharmacy) 01/21/2023,10:39 AM documented in this encounter Plan of Treatment Upcoming Encounters Date Type Specialty Care Team Description 01/23/2023 Office Visit Neurology Gloria Florez PA-C [address] [place] [address] 02/20/2023 Office Visit Family Medicine Irvin Iverson MD [address] [place] [address] 04/19/2023 Office Visit Cardiology Laina Greer CRNP [address] [place] [address] Health Maintenance Due Date Last Done Comments [...] Additional history exists CKD HGB USE SMARTSET 21989 08/07/202308/06, 08/06/2022, 11/03/2021, Additional history exists Mammogram 08/08/2023 08/07/2022 Albumin/Creatinine Ratio 12/18/2023 023, 10/05/2020, 05/28/2019, Additional history exists CKD PHOS USE SMARTSET 66160 12/18/202311/28, 11/20/2020, 09/06/2017 DTaP,Tdap,and Td Vaccines (3 [...] Advance Directives occurred with: Patient Care Teams Dressmaker Or Tailor Relationship Specialty Start Date End Date Irvin Iverson MD [address] [place] [address] PCP - General Family Medicine 04/02/22 documented as of this encounter
--- OUTSIDE RECORDS SUMMARY | 2023-04-22 11:20 | External Medical Summary | Summary of Care ---
Author Name Unknown Organization [facility] Address [address] [place] [address] Phone [phone] Care Team Providers Care Radio Program Checker Name Role Phone Irvin Iverson MD Primary Care Provider + Reason for Visit * Reason Comments eRx-Medication Refill Encounter Details Date Type Department Care Team Description 01/10/2023 Refill Neurology [facility] [place] [address] [place] [address] Gloria Florez PA-C [address] [place] [address] Allergies Active Allergy Reactions Severity Noted Date Comments Azithromycin Other (Please comment) 03/28/2004 cramps Covid-19 Mrna Vacc (Moderna) 07/24/2021 Severe SOB/ hospitalized. Eggs Or Egg-Derived Products 05/25/2022 Other reaction(s): vomiting Ensure 02/10/2007 Vomiting, diarrhea Mushroom Extract Complex Itching 12/17/2022 Mushrooms Novocain 02/15/2010 hives [place] Extract 05/25/2022 Other reaction(s): Hives Tramadol Seizure High 09/09/2012 documented as of this encounter (statuses as of 01/11/2023) Medications Medication Sig Dispensed Refills Start Date End Date Status LANCET DEVICE MISCIndications:DM type 2, not at goal (HCC) use as directed - for One Touch Ultra 1 box 5 05/09/19 10 Active Additional Information Patient not taking.Informant: Patient, Reported on 12/17/2022 Blood Glucose Monitoring Suppl (Zhitu VERIO FLEX SYSTEM) w/Device KIT Use as [...] times a day. 60 Tablet 1 05/17/19 22 Active Additional Information Patient not taking.Informant: [...] ns:HTN, goal below 140/80,Coronary artery disease involving [place] heart without angina pectoris, unspecified vessel or [...] needed for Cough or Wheezing. 54 g 09/06/19 23 Active Fluticasone Furoate-Vilanterol 200-25 MCG/ACT [...] Oral Tablet (pLAVix)Indication s:Coronary artery disease involving [place] heart without angina pectoris, unspecified vessel or [...] (congestive heart failure) (HCC),Coronary artery disease involving [place] coronary artery of [place] heart without angina pectoris,Nonrheuma tic aortic valve [...] Dizziness. 90 Tablet 3 12/18/19 23 Active Gabapentin 300 MG Oral Capsule (Neurontin) TAKE 1 CAPSULE BY MOUTH THREE TIMES A DAY 90 Capsule 1 01/02/20 23 Active Ferrous Sulfate 325 (65 Fe) MG Oral Tablet (Feosol)Indication s:Iron deficiency anemia, unspecified iron deficiency anemia type Take 1 Tablet by mouth every other day. 45 Tablet 3 01/05/20 23 Active Gabapentin 100 MG Oral Capsule (Neurontin) Take 1 cap three times daily with 300 mg tablets for a total of 400 mg three time daily 90 Capsule 2 01/10/20 23 Active Cyclobenzaprine HCl 10 MG Oral Tablet (Flexeril)Indicati ons:Lumbar disc disease TAKE 1 TABLET BY MOUTH IN THE MORNING AND BEFORE BEDTIME 60 Tablet 0 12/14/19 23 023 Discontinued Hospital, Clinic, or Other Facility Administered Medication Ordered Dose Route Frequency Start Date End Date Status lidocaine 1 % inj 21 mgIndications:Cellulitis of arm, left,Abscess of multiple sites of upper arm 21 mg IJ Daily(AM) 09/20/2017 Active medroxyPROGESTERone acetate (DEPO-PROVERA) inj NORBERTO 150 mgIndications:Surveillance for Depo-Provera contraception 150 mg IM [id number] 09/09/2019 Active documented as of this encounter (statuses as of 01/11/2023) Active Problems Problem Noted Date Adrenal adenoma, [...] without hepatic coma 09/09/2017 Overview: 09/13 dx [facility]. Genotype 1A. Confirmed 2021. New since 2015. Hx shared needles. Coronary artery disease involving [place] heart without angina pectoris 12/19/2016 S/P coronary [...] HOSPITAL/[facility]kan ODvs suicide attempt. 02/13 d/c to [facility] in [place]. 09/13 ICU/intubated-fungal xtqwco-hdlon-Ruveusx dubliniensis. , hand abscess dayna albicans MED [...] as of this encounter (statuses as of 01/11/2023) Resolved Problems Problem Noted Date Resolved Date Hydronephrosis, right 12/06/2020 04/11/2021 Acute on chronic diastolic congestive heart fail ure 03/03/2020 08/26/2020 Major depressive disorder, recurrent, unspecifie d 12/30/2019 12/14/2021 Uncomplicated opioid dependence 06/23/2019 03/19/2022 Coronary artery disease invo lving [place] coronary artery of [place] heart without angina pectoris 06/23/2019 12/14/2021 Encounter for monitoring Suboxone maintenance th erapy 09/24/2018 12/14/2021 Polysubstance abuse 02/26/2018 03/19/2022 Overview: Fall 2017 rehab [facility], etc will establish w/[facility] 02/2018 Suicide attempt [...] 03/11/2013 04/11/2021 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 03/31/2012 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 Cervical incompetence, antepartum 03/02/2010 04/11/2016 Enterococcus UTI 02/16/2010 12/04/2011 Other pulmonary embolism and infarction 02/16/20 10 07/29/2014 Overview: On lovenox 1 ml q 12 hr Supervision of high-risk of young shanaet igravida 02/13/2010 08/04/2012 Overview: H/o loss at 20-22wks due to ? Incompetent cervix in 1997-no records on file, needs cervical length check 01/11: WBC elevated at 23; platelets elevated at 464, [facility] Repeat ultrasound is recommended [...] abnormality. Supervision of high-risk of young myriam reynoldavishayne 01/11/2010 02/08/2010 Overview: H/o loss at 20-22 [...] as of this encounter (statuses as of 01/11/2023) Immunizations Name Administration Dates Next Due COVID-19 [...] encounter Miscellaneous Notes * Telephone Encounter - Tammie Coy CPhT - 01/11/2023 2:25 PM EDTRefused Prescriptions: Disp Refills Gabapentin 300 MG Oral Capsule (Neurontin) 90 Cap*10 Sig: TAKE 1 CAPSULE BY MOUTH IN THE MORNING, 1 CAPSULE AT NOON AND 1 CAPSULE BEFORE BEDTIMERefused By: Victor Manuel COY for Refusal: Request already responded to by other means * Telephone Encounter - Tammie Coy CPhT - 01/11/2023 2:23 PM EDT [facility] Thank you, Katie Coy Dental Practitioner III [facility] ([facility]) 01/11/2023,2:23 PM documented in this encounter Plan of Treatment Upcoming Encounters Date Type Specialty Care Team Description 01/21/2023 Imaging Radiology 02/19/2023 Office Visit Neurology Gloria Florez PA-C [address] [facility] [place] [address] 02/20/2023 Office Visit Family Medicine Irvin Iverson MD [address] [place] [address] 04/19/2023 Office Visit Cardiology Laina Greer CRNP [address] [place] [address] Health Maintenance Due Date Last Done Comments [...] Additional history exists CKD HGB USE SMARTSET 10930 08/07/202308/06, 08/06/2022, 11/03/2021, Additional history exists Mammogram 08/08/2023 08/07/2022 Albumin/Creatinine Ratio 12/18/2023 023, 10/05/2020, 05/28/2019, Additional history exists CKD PHOS USE SMARTSET 17300 12/18/202311/28, 11/20/2020, 09/06/2017 DTaP,Tdap,and Td Vaccines (3 [...] Advance Directives occurred with: Patient Care Teams Radio Program Checker Relationship Specialty Start Date End Date Irvin Iverson MD [address] [place] [address] PCP - General Family Medicine 04/02/22 documented as of this encounter
--- OUTSIDE RECORDS SUMMARY | 2023-04-22 11:20 | External Medical Summary | Summary of Care ---
Author Name Unknown Organization [facility] Address [address] [place] [address] Phone [phone] Care Team Providers Care Mycology Teacher Name Role Phone Irvin Kramer MD Primary Care Provider + Reason for Visit * Reason Comments eRx-Medication Refill Encounter Details Date Type Department Care Team Description 01/07/2023 Refill Family Practice [facility] [address] [facility] [place] [address] [facility] [address] [facility] [address] Lumbar disc disease Allergies Active Allergy Reactions Severity Noted Date Comments Azithromycin Other (Please comment) 03/28/2004 cramps Covid-19 Mrna Vacc (Moderna) 07/24/2021 Severe SOB/ hospitalized. Eggs Or Egg-Derived Products 05/25/2022 Other reaction(s): vomiting Ensure 02/10/2007 Vomiting, diarrhea Mushroom Extract Complex Itching 12/17/2022 Mushrooms Novocain 02/15/2010 hives [place] Extract 05/25/2022 Other reaction(s): Hives Tramadol Seizure [...] 1 ML Use as directed. 0 Active JustinmindTOUCH DELICA LANCETS 33G MISCIndications:Ty pe 2 diabetes [...] ns:HTN, goal below 140/80,Coronary artery disease involving [place] heart without angina pectoris, unspecified vessel or [...] Oral Tablet (pLAVix)Indication s:Coronary artery disease involving [place] heart without angina pectoris, unspecified vessel or [...] (congestive heart failure) (HCC),Coronary artery disease involving [place] coronary artery of [place] heart without angina pectoris,Nonrheuma tic aortic valve [...] day. 45 Tablet 3 01/05/20 23 Active Cyclobenzaprine HCl 10 MG Oral Tablet (Flexeril)Indicati ons:Lumbar disc disease TAKE 1 TABLET BY MOUTH IN THE MORNING AND BEFORE BEDTIME 60 Tablet 0 01/12/20 23 Active Cyclobenzaprine HCl 10 MG Oral [...] mgIndications:Surveillance for Depo-Provera contraception 150 mg IM [id number] 09/09/2019 Active documented as of this encounter [...] hepatic coma 09/09/2017 Overview: 09/13 dx [facility]. Genotype 1A. Confirmed 2021. New since 2015. Hx shared needles. Coronary artery disease involving [place] heart without angina pectoris 12/19/2016 S/P coronary [...] [facility] ODvs suicide attempt. 02/13 d/c to [facility] in [place]. 09/13 ICU/intubated-fungal ewjvie-phbnh-Ldsvzmr dubliniensis. 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 Cervical incompetence, antepartum 03/02/2010 04/11/2016 Enterococcus UTI 02/16/2010 12/04/2011 Other pulmonary embolism and infarction 02/16/20 10 07/29/2014 Overview: On lovenox 1 ml q 12 hr Supervision of high-risk of young myriam esquivelda 02/13/2010 08/04/2012 Overview: H/o loss at 20-22wks [...] abnormality. Supervision of high-risk of young myriam reynoldavida 01/11/2010 02/08/2010 Overview: H/o loss at 20-22 [...] Telephone Encounter - Irvin Kramer MD - 01/11/2023 10:22 AM EDTSigned Prescriptions: Disp Refills Cyclobenzaprine HCl 10 MG Oral Tablet (Fle*60 Tab*0 Sig: TAKE 1 TABLET BY MOUTH IN THE MORNING AND BEFORE BEDTIME Authorizing Provider: IRVIN KRAMER * Telephone Encounter - Sherri Padgett [facility] - 01/11/2023 5:36 AM EDTPending Prescriptions: Disp Refills Cyclobenzaprine HCl 10 MG Oral Tablet [Pha*60 Tab*0 Sig: TAKE 1 TABLET BY MOUTH IN THE MORNING AND BEFORE BEDTIME * Telephone Encounter - Irvin Kramer MD - 01/09/2023 1:56 PM EDTPending Prescriptions: Disp Refills Cyclobenzaprine HCl 10 MG Oral Tablet [Pha*60 Tab*0 Sig: TAKE 1 TABLET BY MOUTH IN THE MORNING AND BEFORE BEDTIME * Telephone Encounter - Irvin Kramer MD - 01/09/2023 1:56 PM EDT Refill request is early--will refill Saturday * Telephone Encounter - [employer], [facility] - 01/09/2023 12:42 PM EDT Pending Prescriptions: Disp Refills Cyclobenzaprine HCl 10 MG Oral Tablet [Pha*60 Tab*0 Sig: TAKE 1 TABLET BY MOUTH IN THE MORNING AND BEFORE BEDTIME * Telephone Encounter - Sherri Padgett [facility] - 01/08/2023 12:49 PM EDT Pending Prescriptions: Disp Refills Cyclobenzaprine HCl 10 MG Oral Tablet [Pha*60 Tab*0 Sig: TAKE 1TABLET BY MOUTH IN THE MORNING AND BEFORE BEDTIME documented in this encounter Plan of Treatment Upcoming Encounters Date Type Specialty Care Team Description 01/21/2023 Imaging Radiology 02/19/2023 Office Visit Neurology Gloria Florez PA-C [address] [facility] [place] [address] 02/20/2023 Office Visit Family Medicine Irvin Kramer MD [address] [place] [address] 04/19/2023 Office Visit Cardiology Laina Greer CRNP [address] [place] [address] Health Maintenance Due Date Last Done Comments [...] 11/04/2019, Additional history exists GFR 06/19/2023 12/17/2022, 0409/2022, 08/06/2022, Additional history exists PAP SMEAR-ANNUAL AGES 18-100 07/26/2023 07/25/2022, 09/24/2017, 07/14/2014, Additional history exists CKD HGB USE SMARTSET 53174 08/07/202308/06, 08/06/2022, 11/03/2021, Additional history exists Mammogram 08/08/2023 08/07/2022 Albumin/Creatinine Ratio 12/18/2023 023, 10/05/2020, 05/28/2019, Additional history exists CKD PHOS USE SMARTSET 22232 12/18/202311/28, 11/20/2020, 09/06/2017 DTaP,Tdap,and Td Vaccines (3 [...] Advance Directives occurred with: Patient Care Teams Mycology Teacher Relationship Specialty Start Date End Date Irvin Kramer MD [address] [place] [address] PCP - General Family Medicine 04/02/22 documented as of this encounter
--- OUTSIDE RECORDS SUMMARY | 2023-04-22 11:20 | External Medical Summary | Summary of Care ---
Author Name Unknown Organization [facility] Address [address] [place] [address] Phone [phone] Care Team Providers Care Construction Tech Name Role Phone Irvin Iverson MD Primary Care Provider + Reason for Visit * Reason Comments eRx-Medication Refill Encounter Details Date Type Department Care Team Description 01/01/2023 Refill Neurology [facility] Roberta [place] [address] [place] [address] Gloria Florez PA-C [address] [place] [address] Allergies Active Allergy Reactions Severity Noted Date Comments Azithromycin Other (Please comment) 03/28/2004 cramps Covid-19 Mrna Vacc (Moderna) 07/24/2021 Severe SOB/ hospitalized. Eggs Or Egg-Derived Products 05/25/2022 Other reaction(s): vomiting Ensure 02/10/2007 Vomiting, diarrhea Mushroom Extract Complex Itching 12/17/2022 Mushrooms Novocain 02/15/2010 hives Bonesteel Extract 05/25/2022 Other reaction(s): Hives Tramadol Seizure High 09/09/2012 documented as of this encounter (statuses as of 01/09/2023) Medications Medication Sig Dispensed Refills Start Date End Date Status LANCET DEVICE MISCIndications:D M type 2, not at goal (HCC) use as directed - for One Touch Ultra 1 box 5 05/09/19 10 Active Additional Information Patient not taking.Informant: Patient, Reported on 12/17/2022 Blood Glucose Monitoring Suppl (SnapDash VERIO FLEX SYSTEM) w/Device KIT Use as directed. 0 Active Insulin Syringe-Needle U-100 27G X 1/2" 1 ML Use as directed. 0 Active ONETOUCH DELICA LANCETS 33G MISCIndications:T ype 2 diabetes mellitus with hemoglobin A1c goal of less than 8.0% ([facility]) Test as directed. Pt test 2 times daily. E11.9 100 Each 11 08/27/19 19 Active Additional Information Patient not taking.Informant: Patient, Reported on 12/17/2022 NOVOFINE 32G PEN NEEDLE 32G X 6 MM MISCIndications:T ype 2 diabetes mellitus with hemoglobin A1c [...] Polyethylene Glycol 3350 17 GM/SCOOP Oral Powder (MiraLax)Indicati ons:Constipation, unspecified constipation type Take 17 g by mouth as needed for Constipation. Dissolve one heaping tablespoon in 8 ounces of water or juice. 507 g 5 01/19/20 21 Active Albuterol Sulfate (2.5 MG/3ML) 0.083% Inhalation Nebulization Solution (Proventil)Indica tions:Mild intermittent asthma without complication Inhale 1 Vial via nebulizer every 4 hours as needed for Wheezing. 300 mL 1 03/21/20 21 Active Topiramate 25 MG Oral Tablet (Topamax)Indicati ons:Chronic bilateral low back pain with right-sided sciatica [...] taking.Informant: Patient, Reported on 12/17/2022 oxygen IN GASIndications:No cturnal hypoxemia Use as directed 2 L/min(Oxygen) as needed (via nasal cannula with exertion). titrate to off if SpO2 90-94%. 3 LPM via nasal cannula at bedtime and with all sleep. 1 Each 0 09/29/19 Active Spironolactone 25 MG Oral Tablet (Aldactone)Indica tions:Fatigue, unspecified type Take by mouth 0.5 Tablets in the morning. 90 Tablet 1 10/28/19 Active Additional Information Patient not taking.Informant: Patient, Reported on 12/17/2022 medroxyPROGESTERo ne Acetate 150 MG/ML Intramuscular Suspension (Depo-Provera)Ind ications:Surveill ance for Depo-Provera contraception INJECT 1 ML INTRAMUSCULARLY EVERY 3 MONTHS 1 mL 3 12/01/19 Active Additional Information Patient not taking.Informant: Patient, Reported on 12/17/2022 Atorvastatin Calcium 80 MG Oral Tablet (Lipitor)Indicati ons:HTN, goal below 140/80,Coronary artery disease involving [place]na heart without angina pectoris, unspecified vessel or lesion type,Nonrheumatic aortic valve stenosis,Dyslipid emia, goal LDL below 100 Take 1 Tablet by mouth in the morning. 90 Tablet 3 08/31/19 23 Active Escitalopram Oxalate 10 MG Oral Tablet (Lexapro)Indicati ons:KELLY (generalized anxiety disorder) Take 1 Tablet by [...] Active Escitalopram Oxalate 20 MG Oral Tablet (Lexapro)Indicati ons:Depression with anxiety Take 1 Tablet by mouth in the morning. 90 Tablet 3 08/31/19 23 Active Potassium Chloride Yvonne ER 20 MEQ Oral Tablet Extended Release (Klor-Con M20)Indications:E sha, unspecified type Take 1 Tablet by mouth [...] 54 g 1 09/06/19 23 Active Fluticasone Furoate-Vilantero l 200-25 MCG/ACT Inhalation Aerosol Powder Breath Activated (BREO ellipta) Inhale 1 Puff by mouth in the morning. Please rinse mouth out after using.. 180 Blister Dosing Unit 1 09/06/19 23 Active Aspirin Low Dose 81 MG Oral Tablet Delayed Release (aspirin enteric coated)Indication s:Type 2 diabetes mellitus with hemoglobin A1c goal of less than 8.0% (HCC) TAKE 1 TABLET BY MOUTH EVERY DAY 100 Tablet 3 09/28/19 23 Active Famotidine 20 MG Oral Tablet (Pepcid) TAKE 1 TABLET BY MOUTH 2 TIMES A DAY NEEDED FOR HEARTBURN. 180 Tablet 2 09/28/19 23 Active Lisinopril 5 MG Oral Tablet (Prinivil)Indicat ions:HTN, goal below 130/80 TAKE 1 TABLET BY MOUTH EVERY DAY IN THE MORNING 90 Tablet 1 10/14/19 23 Active Mupirocin 2 % External Ointment (Bactroban) APPLY TOPICALLY TO AFFECTED AREA THREE TIMES A DAY FOR UP TO 14 DAYS 22 g 10 10/24/19 23 Active Additional Information Patient not taking.Informant: Patient, Reported on 12/17/2022 Cyclobenzaprine HCl 10 MG Oral Tablet (Flexeril)Indicat ions:Lumbar disc disease TAKE 1 TABLET BY MOUTH IN THE MORNING AND BEFORE BEDTIME 60 Tablet 0 12/14/19 23 Active Clopidogrel Bisulfate 75 MG Oral Tablet (pLAVix)Indicatio ns:Coronary artery disease involving cheesh-na heart without angina pectoris, unspecified vessel or lesion type,S/P coronary artery stent placement TAKE 1 TABLET BY MOUTH EVERY DAY 90 Tablet 1 12/14/19 23 Active Acetaminophen ER 650 MG Oral Tablet Extended Release (Tylenol 8 Hour)Indications: Acute nonintractable headache, unspecified headache type Take 1 Tablet by mouth every 8 hours as needed for Pain, Moderate. 30 Tablet 0 12/16/19 23 Active Torsemide 20 MG Oral Tablet (Demadex)Indicati ons:Chronic diastolic CHF (congestive heart failure) (HCC),Coronary artery disease involving cheesh-na coronary artery of cheesh-na heart without angina pectoris,Nonrheum atic aortic valve stenosis,HTN, goal below 140/90,Dyslipidem ia, goal LDL below 70 Take 1 Tablet by mouth in the morning. 60 Tablet 5 12/18/19 23 Active Additional Information Patient not taking.Informant: Patient, Reported on 12/17/2022 Meclizine HCl 25 MG Oral Tablet (Antivert)Indicat ions:Vertigo Take 1 Tablet by mouth 3 times a day as needed for Dizziness. 90 Tablet 3 12/18/19 23 Active Gabapentin 300 MG Oral Capsule (Neurontin) TAKE 1 CAPSULE BY MOUTH THREE TIMES A DAY 90 Capsule 1 01/02/20 23 Active Ferrous Sulfate 325 (65 Fe) MG Oral Tablet (Feosol)Indicatio ns:Iron deficiency anemia, unspecified iron deficiency anemia type Take by mouth 1 Tablet every other day . 45 Tablet 3 12/07/19 22 023 Discontinued(Re fill) Gabapentin 300 MG Oral Capsule (Neurontin) TAKE 1 CAPSULE BY MOUTH THREE TIMES A DAY 90 Capsule 1 11/17/19 23 023 Discontinued Hospital, Clinic, or Other Facility Administered Medication Ordered Dose Route Frequency Start Date End Date Status lidocaine 1 % inj 21 mgIndications:Cellulitis of arm, left,Abscess of multiple sites of upper arm 21 mg IJ Daily(AM) 09/20/2017 Active medroxyPROGESTERone acetate (DEPO-PROVERA) inj NORBERTO 150 mgIndications:Surveillance for Depo-Provera contraception 150 mg IM [id number] 09/09/2019 Active documented as of this encounter (statuses as of 01/09/2023) Active Problems Problem Noted Date Adrenal adenoma, [...] without hepatic coma 09/09/2017 Overview: 09/13 dx [facility]. Genotype 1A. Confirmed 2021. New since 2015. Hx shared needles. Coronary artery disease involving cheesh-na heart without angina pectoris 12/19/2016 S/P coronary [...] with single ROJAS [facility]. EF stable 55-60%. Lung nodules inc9mm LLL. ?infection. Consider kailyn 1mo CT. 11/14 Dr Rodriguez [facility] Trazodone 100mg? Suboxone Dr Max Garcia 06/17 incarcerated 01/14 admit [facility]/Ashkan ODvs suicide attempt. 02/13 d/c to [facility] in [place]. 09/13 ICU/intubated-fungal qagjkw-gyzjh-Jzkuasi dubliniensis. , hand abscess dayna albicans MED [...] as of this encounter (statuses as of 01/09/2023) Resolved Problems Problem Noted Date Resolved Date Hydronephrosis, right 12/06/2020 04/11/2021 Acute on chronic diastolic congestive heart fail ure 03/03/2020 08/26/2020 Major depressive disorder, recurrent, unspecifie d 12/30/2019 12/14/2021 Uncomplicated opioid dependence 06/23/2019 03/19/2022 Coronary artery disease invo lving cheesh-na coronary artery of cheesh-na heart without angina pectoris 06/23/2019 12/14/2021 Encounter for monitoring Suboxone maintenance th erapy 09/24/2018 12/14/2021 Polysubstance abuse 02/26/2018 03/19/2022 Overview: Fall 2017 rehab [facility], etc will establish w/[facility] 02/2018 Suicide attempt [...] 03/11/2013 04/11/2021 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 03/31/2012 015 custodial current use of anticoagulant therapy 0 08/07/2010 [...] platelets elevated at 464, repeat CBC at [facility] 02/08: Repeat ultrasound is recommended in [...] as of this encounter (statuses as of 01/09/2023) Immunizations Name Administration Dates Next Due COVID-19 [...] Notes * Telephone Encounter - Marissa Garsia [facility] - 01/09/2023 9:37 AM EDT Pt calling in to request a dose change on their Gabapentin. Current dose: 300 mg TID Requested dose: 400 mg TID Reason for request: not working Patient still has back pain and still has headaches. The 300mg takes the edge off but does not get rid of the pain. Please advise if you feel dose increase is appropriate. Thanks, Marissa Garsia [facility] Clinical Pharmacist [facility] ([facility]) ([facility]) [phone] * Telephone Encounter - Radha Leija CPhT - 01/09/2023 9:35 AM EDT Pt calling in to request a dose change on their Gabapentin. Current dose: 300 mg Requested dose: 400 mg Reason for request: not working Preferred pharmacy: [id number] [place]-transferred pt to pharmacist for consultation. Thank you, Radha Leija [place] [employer] [facility] ([facility]) ([facility]) 01/09/2023, 9:35 AM * Telephone Encounter - Mike Au [facility] - 01/01/2023 3:58 PM EDTSigned Prescriptions: Disp Refills Gabapentin 300 MG Oral Capsule (Neurontin) 90 Cap*1 Sig: TAKE 1 CAPSULE BY MOUTH THREE TIMES A DAYAuthorizing Provider: GLORIA ANDERSON * Telephone Encounter - Gloria Anderson MD - 01/01/2023 3:29 PM EDTSigned Prescriptions: Disp Refills Gabapentin 300 MG Oral Capsule (Neurontin) 90 Cap*1 Sig: TAKE 1 CAPSULE BY MOUTH THREE TIMES A DAY Authorizing Provider: GLORIA ANDERSON * Telephone Encounter - Valeria Ji [employer] - 01/01/2023 2:37 PM EDT Pending Prescriptions: Disp Refills Gabapentin 300 MG Oral Capsule [Pharmacy M*90 Cap*1 Sig: TAKE 1 CAPSULE BY MOUTH THREE TIMES A DAY * Telephone Encounter - Kathleen Gan CPhT - 01/01/2023 2:26 PM EDT Patient is requesting high priority Did you pend patient's preferred pharmacy and medication before forwarding?yes Pharmacy: [id number] [address] [facility] Pending Prescriptions: Disp Refills Gabapentin 300 MG Oral Capsule (Neurontin*90 Cap*1 Sig: TAKE 1 CAPSULE BY MOUTH THREE TIMES A DAY Last Visit: 08/15/2022 (in office), Visit date not found (telemedicine) Next Visit: 02/19/2023 If no future appointments scheduled, and last appointment is greater than a year ago, please schedule patient for a follow-up appointment Last date the medication was ordered: 11/16/22 Is this request for a controlled substance?No [...] in Results Review. Patient Phone Numbers mobile [phone] Labs: Lab Results Component Value Date/Time CREAT [...] Office Visit Neurology [facility] [address] [facility] [address] 02/20/2023 Office Visit Family Medicine Irvin Iverson MD [address] [place] [address] 04/19/2023 Office Visit Cardiology Laina Greer CRNP [address] [place] [address] Health Maintenance Due Date Last Done Comments [...] Additional history exists CKD HGB USE SMARTSET 95826 08/07/202308/06, 08/06/2022, 11/03/2021, Additional history exists Mammogram 08/08/2023 08/07/2022 Albumin/Creatinine Ratio 12/18/2023 023, 10/05/2020, 05/28/2019, Additional history exists CKD PHOS USE SMARTSET 21244 12/18/202311/28, 11/20/2020, 09/06/2017 DTaP,Tdap,and Td Vaccines (3 [...] Advance Directives occurred with: Patient Care Teams Construction Tech Relationship Specialty Start Date End Date Irvin Iverson MD [address] [place] [address] PCP - General Family Medicine 04/02/22 documented as of this encounter
--- OUTSIDE RECORDS SUMMARY | 2023-04-22 11:20 | External Medical Summary | Summary of Care ---
Author Name Unknown Organization [facility] Address [address] [place] [address] Phone [phone] Care Team Providers Care Tufter Operator Name Role Phone Irvin Iverson MD Primary Care Provider + Reason for Visit * Reason Onset Date Comments Medication Refill 01/21/2023 Encounter Details Date Type Department Care Team Description 01/21/2023 Telephone Neurology [facility] [place] [address] [place] [address] Gloria Florez PA-C [address] [place] [address] Medication Refill Allergies Active Allergy Reactions Severity Noted Date Comments Azithromycin Other (Please comment) 03/28/2004 cramps Covid-19 Mrna Vacc (Moderna) 07/24/2021 Severe SOB/ hospitalized. Eggs Or Egg-Derived Products 05/25/2022 Other reaction(s): vomiting Ensure 02/10/2007 Vomiting, diarrhea Mushroom Extract Complex Itching 12/17/2022 Mushrooms Novocain 02/15/2010 hives [place]ma Extract 05/25/2022 Other reaction(s): Hives Tramadol Seizure [...] hemoglobin A1c goal of less than 8.0% ([facility]) Test as directed. Pt test [...] Oral Tablet Extended Release (Tylenol 8 Hour)Indications:Ac alturas nonintractable headache, unspecified headache type Take 1 [...] mgIndications:Surveillance for Depo-Provera contraception 150 mg IM [id number] 09/09/2019 Active documented as of this encounter [...] without hepatic coma 09/09/2017 Overview: 09/13 dx [facility]. Genotype 1A. Confirmed 2021. New [...] PCI mid right PDA with single ROJAS [facility]. EF stable 55-60%. Lung nodules inc9mm LLL. ?infection. Consider kailyn 1mo CT. 11/14 Dr Michael LEDESMA Trazodone 100mg? Suboxone Dr Max Garcia 06/17 incarcerated 01/14 admit [facility]/Ashkan ODvs suicide attempt. 02/13 d/c to [facility] [place]. 09/13 ICU/intubated-fungal ffdnej-mzlxj-Orzvysa dubliniensis. , hand abscess dayna albicans MED [...] abuse 02/26/2018 03/19/2022 Overview: Fall 2017 rehab [facility], etc will establish w/[facility] 02/2018 Suicide attempt [...] 03/11/2013 04/11/2021 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 03/31/2012 015 [place] current use of anticoagulant therapy 0 08/07/2010 [...] platelets elevated at 464, repeat CBC at [facility] 02/08: Repeat ultrasound is recommended in [...] dose increase is appropriate. Thanks, Marissa Garsia [facility] Clinical Pharmacist [facility] ([facility]) (Formerly [facility]) [phone] * Telephone Encounter - RICHARDSON Fall - 01/21/2023 10:38 AM EDT Pt calling in to request a dose change on their gabapentin Current dose: 400 mg Requested dose: 600 mg Reason for request: 400 not working Preferred pharmacy: [id number] Patient unwilling to speak with pharmacist at this time. Routing to pharmacist pool to advise. Thank you, Jinny Acevedo CPhT Interactive Digital Media Specialist II [facility]) 01/21/2023,10:39 AM documented in this encounter Plan of Treatment Upcoming Encounters Date Type Specialty Care Team Description 01/23/2023 Office Visit Neurology Gloria Florez PA-C [address] [facility] [place] [address] 02/20/2023 Office Visit Family Medicine Irvin Iverson MD [address] [place] [address] 04/19/2023 Office Visit Cardiology Laina Greer CRNP [address] [place] [address] Health Maintenance Due Date Last Done Comments [...] Additional history exists CKD HGB USE SMARTSET 56097 08/07/202308/06, 08/06/2022, 11/03/2021, Additional history exists Mammogram 08/08/2023 08/07/2022 Albumin/Creatinine Ratio 12/18/2023 023, 10/05/2020, 05/28/2019, Additional history exists CKD PHOS USE SMARTSET 61877 12/18/202311/28, 11/20/2020, 09/06/2017 DTaP,Tdap,and Td Vaccines (3 [...] Advance Directives occurred with: Patient Care Teams Tufter Operator Relationship Specialty Start Date End Date Irvin Iverson MD [address] [place] [address] PCP - General Family Medicine 04/02/22 documented as of this encounter
--- OUTSIDE RECORDS SUMMARY | 2023-04-22 11:20 | External Medical Summary | Summary of Care ---
Author Name Unknown Organization [facility] Address [address] [place] [address] Phone [phone] Care Team Providers Care Escrow Manager Name Role Phone Irvin Iverson MD Primary Care Provider + Reason for Visit * Reason Onset Date Comments Test Results 12/18/2022 Encounter Details Date Type Department Care Team Description 12/18/2022 Telephone Cardiology, [facility] [address] [facility] [place] [address] Laina Greer CRNP [address] [place] [address] Test Results Allergies Active Allergy Reactions Severity Noted Date Comments Azithromycin Other (Please comment) 03/28/2004 cramps Covid-19 Mrna Vacc (Moderna) 07/24/2021 Severe SOB/ hospitalized. Eggs Or Egg-Derived Products 05/25/2022 Other reaction(s): vomiting Ensure 02/10/2007 Vomiting, diarrhea Mushroom Extract Complex Itching 12/17/2022 Mushrooms Novocain 02/15/2010 hives [place] Extract 05/25/2022 Other reaction(s): Hives Tramadol Seizure High 09/09/2012 documented as of this encounter (statuses as of 01/18/2023) Medications Medication Sig Dispensed Refills Start Date End Date Status LANCET DEVICE MISCIndications:D M type 2, not at goal (HCC) use as directed - for One Touch Ultra 1 box 5 05/09/19 10 Active Additional Information Patient not taking.Informant: Patient, Reported on 12/17/2022 Blood Glucose Monitoring Suppl ([employer] VERIO FLEX SYSTEM) w/Device KIT Use as [...] ons:HTN, goal below 140/80,Coronary artery disease involving [place] heart without angina pectoris, unspecified vessel or [...] 12/17/2022 Clopidogrel Bisulfate 75 MG Oral Tablet (pLAVix)Indicatio ns:Coronary artery disease involving [place] heart without angina pectoris, unspecified vessel or [...] failure) (HCC),Coronary artery disease involving [place] coronary artery of [place] heart without angina pectoris,Nonrheum atic aortic valve [...] 90 Capsule 1 11/17/19 23 023 Discontinued Cyclobenzaprine HCl 10 MG Oral Tablet (Flexeril)Indicat [...] mgIndications:Surveillance for Depo-Provera contraception 150 mg IM [id number] 09/09/2019 Active documented as of this encounter (statuses as of 01/18/2023) Active Problems Problem Noted Date Adrenal adenoma, [...] without hepatic coma 09/09/2017 Overview: 09/13 dx [facility]. Genotype 1A. Confirmed 2021. New since 2015. Hx shared needles. Coronary artery disease involving [place] heart without angina pectoris 12/19/2016 S/P coronary [...] PCI mid right PDA with single ROJAS [facility]. EF stable 55-60%. Lung nodules inc9mm LLL. ?infection. Consider kailyn 1mo CT. 11/14 Dr Michael LEDESMA Trazodone 100mg? Suboxone Dr Max Garcia 06/17 incarcerated 01/14 admit [facility]/Ashkan ODvs suicide attempt. 02/13 d/c to [facility] in [place]. 09/13 ICU/intubated-fungal zmiiml-bohpb-Ulwvbwf dubliniensis. , hand abscess dayna albicans MED [...] as of this encounter (statuses as of 01/18/2023) Resolved Problems Problem Noted Date Resolved Date Hydronephrosis, right 12/06/2020 04/11/2021 Acute on chronic diastolic congestive heart fail ure 03/03/2020 08/26/2020 Major depressive disorder, recurrent, unspecifie d 12/30/2019 12/14/2021 Uncomplicated opioid dependence 06/23/2019 03/19/2022 Coronary artery disease invo lving [place] coronary artery of [place] heart without angina pectoris 06/23/2019 12/14/2021 Encounter for monitoring Suboxone maintenance th erapy 09/24/2018 12/14/2021 Polysubstance abuse 02/26/2018 03/19/2022 Overview: Fall 2017 rehab [facility], etc will establish w/[facility] 02/2018 Suicide attempt [...] 03/11/2013 04/11/2021 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 03/31/2012 015 salvage determiner current use of anticoagulant therapy 0 08/07/2010 [...] platelets elevated at 464, repeat CBC at [facility] 02/08: Repeat ultrasound is recommended in 3 [...] as of this encounter (statuses as of 01/18/2023) Immunizations Name Administration Dates Next Due COVID-19 [...] encounter Miscellaneous Notes * Telephone Encounter - Ashlie Davis LPN - 01/18/2023 11:54 AM EDT Pt notified via phone and states understanding. * Telephone Encounter - Kamille Bergman CMA - 12/18/2022 1:09 PM EDT LMTRC. Order placed for bmp * Telephone Encounter - Kamille Bergman CMA - 12/18/2022 1:09 PM EDT ----- Message from JOSETTE Herrera sent at 12/18/2022 9:17 AM EDT ----- Stable renal function- torsemide restarted 12/17, repeat BMP in 1 week. documented in this encounter Plan of Treatment Upcoming Encounters Date Type Specialty Care Team Description 01/21/2023 Imaging Radiology 01/23/2023 Office Visit Neurology Gloria Florez PA-C [address] [place] [address] 02/20/2023 Office Visit Family Medicine Irvin Iverson MD [address] [place] [address] 04/19/2023 Office Visit Cardiology Laina Greer CRNP [address] [place] [address] Scheduled Orders Name Type Priority Associated Diagnoses Orde r Schedule BASIC METABOLIC PANEL Lab Routine HTN, goal below 130/80 Dyslipidemia Expected: 12/25/2022 (Approximate), Expires: 12/19/2023 Health Maintenance Due Date Last Done Comments [...] Additional history exists CKD HGB USE SMARTSET 70772 08/07/202308/06, 08/06/2022, 11/03/2021, Additional history exists Mammogram 08/08/2023 08/07/2022 Albumin/Creatinine Ratio 12/18/2023 023, 10/05/2020, 05/28/2019, Additional history exists CKD PHOS USE SMARTSET 43028 12/18/202311/28, 11/20/2020, 09/06/2017 DTaP,Tdap,and Td Vaccines (3 [...] goal below 130/80- Primary Unspecified essential hypertension Dyslipidemia Other and unspecified hyperlipidemia Chronic hypoxemic respiratory failure (HCC) Chronic respiratory failure documented in this encounter Advance Directives Latest Code Status on File Code Status Date Activated Date Inactivated Comments Full Code 02/15/2010 3:36 AM 02/16/2010 9:42 PM Thi s order reflects the patients wishes and were consensually agreed upon. Question Answer Comments Discussion of Advance Directives occurred with: Patient Care Teams Escrow Manager Relationship Specialty Start Date End Date Irvin Iverson MD [address] [place] [address] PCP - General Family Medicine 04/02/22 documented as of this encounter
--- OUTSIDE RECORDS SUMMARY | 2023-04-22 11:20 | External Medical Summary | Summary of Care ---
Author Name Unknown Organization [facility] Address [address] [place] [address] Phone [phone] Care Team Providers Care Pump Service Supervisor Name Role Phone Irvin Iverson MD Primary Care Provider + Reason for Visit * Reason Comments eRx-Medication Refill Encounter Details Date Type Department Care Team Description 01/01/2023 Refill Neurology [facility] Roberta [place] [address] [place] [address] Gloria Florez PA-C [address] [place] [address] Allergies Active Allergy Reactions Severity Noted Date Comments Azithromycin Other (Please comment) 03/28/2004 cramps Covid-19 Mrna Vacc (Moderna) 07/24/2021 Severe SOB/ hospitalized. Eggs Or Egg-Derived Products 05/25/2022 Other reaction(s): vomiting Ensure 02/10/2007 Vomiting, diarrhea Mushroom Extract Complex Itching 12/17/2022 Mushrooms Novocain 02/15/2010 hives [place] Extract 05/25/2022 Other reaction(s): Hives Tramadol Seizure [...] Reported on 12/17/2022 Blood Glucose Monitoring Suppl ([employer] VERIO FLEX SYSTEM) w/Device KIT Use as directed. 0 Active Insulin Syringe-Needle U-100 27G X 1/2" 1 ML Use as directed. 0 Active ONETOUCH DELICA LANCETS 33G MISCIndications:T ype 2 diabetes mellitus with hemoglobin A1c goal of less than 8.0% ([facility]) Test as directed. Pt test [...] ons:HTN, goal below 140/80,Coronary artery disease involving [place] heart without angina pectoris, unspecified vessel or [...] Oral Tablet (pLAVix)Indicatio ns:Coronary artery disease involving [place] heart without angina pectoris, unspecified vessel or [...] (congestive heart failure) (HCC),Coronary artery disease involving [place] coronary artery of [place] heart without angina pectoris,Nonrheum atic aortic valve [...] DAY 90 Capsule 1 01/02/20 23 Active Gabapentin 100 MG Oral Capsule (Neurontin) Take 1 cap three times daily with 300 mg tablets for a total of 400 mg three time daily 90 Capsule 2 01/10/20 23 Active Ferrous Sulfate 325 (65 Fe) [...] mgIndications:Surveillance for Depo-Provera contraception 150 mg IM [id number] 09/09/2019 Active documented as of this encounter [...] without hepatic coma 09/09/2017 Overview: 09/[address] [facility]. Genotype 1A. Confirmed 2021. New since 2015. Hx shared needles. Coronary artery disease involving [place] heart without angina pectoris 12/19/2016 S/P coronary [...] PCI mid right PDA with single ROJAS [facility]. EF stable 55-60%. Lung nodules inc9mm LLL. ?infection. Consider kailyn 1mo CT. 11/14 Dr Michael LEDESMA Trazodone 100mg? Suboxone Dr Max Garcia 06/17 incarcerated 01/[address] [facility]/[place]kan ODvs suicide attempt. 02/13 d/c to [facility] in [place]. 09/13 ICU/intubated-fungal yzxpxt-iyylz-Omyqmww dubliniensis. 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 Cervical incompetence, antepartum 03/02/2010 04/11/2016 Enterococcus UTI 02/16/2010 12/04/2011 Other pulmonary embolism and infarction 02/16/20 10 07/29/2014 Overview: On lovenox 1 ml q 12 hr Supervision of high-risk of young myriam flahertyavishayne 02/13/2010 08/04/2012 Overview: H/o loss at 20-22wks due to ? Incompetent cervix in 1997-no records on file, needs cervical length check 01/11: WBC elevated at 23; platelets elevated at 464[facility] Repeat ultrasound is recommended [...] DM type 2, not at goal 09/01/2004 10 9 Overview: Modified per Diabetes protocol #14. [...] Addendum Note - Gloria Florez PA-C - 01/09/2023 10:04 AM EDTAddended by: GLORIA FLOREZ on: 01/09/2023 10:04 AM Modules accepted: Orders * Telephone Encounter - Marissa Garsia RP - 01/09/2023 9:37 AM EDT Pt calling [...] dose increase is appropriate. Thanks, Marissa Garsia [facility] Clinical Pharmacist [facility] ([facility]) (Formerly [facility]) [phone] * Telephone Encounter - Radha Leija CPhT - 01/09/2023 9:35 AM EDT Pt calling in to request a dose change on their Gabapentin. Current dose: 300 mg Requested dose: 400 mg Reason for request: not working Preferred pharmacy: [id number] Warm-transferred pt to pharmacist for consultation. Thank you, Radha Leija Statistician Theoretical [facility] ([facility]) (formerly [facility]) 01/09/2023, 9:35 AM * Telephone Encounter - Mike Au [facility] - 01/01/2023 3:58 PM EDTSigned Prescriptions: Disp [...] Provider: GLORIA ANDERSON * Telephone Encounter - ABI Vasquez - 01/01/2023 2:37 PM EDT Pending Prescriptions: Disp Refills Gabapentin 300 MG Oral Capsule [Pharmacy M*90 Cap*1 Sig: TAKE 1 CAPSULE BY MOUTH THREE TIMES A DAY * Telephone Encounter - Kathleen Ivette Gan CPhT - 01/01/2023 2:26 PM EDT Patient is requesting high priority Did you pend patient's preferred pharmacy and medication before forwarding?yes [id number] [facility] Pending Prescriptions: Disp Refills Gabapentin 300 [...] Office Visit Neurology [facility] [address] [facility] [address] 02/20/2023 Office Visit Family Medicine Irvin Iverson MD [address] [place] [address] 04/19/2023 Office Visit Cardiology Laina Greer CRNP [address] [place] [address] Health Maintenance Due Date Last Done Comments [...] Additional history exists CKD HGB USE SMARTSET 53238 08/07/202308/06, 08/06/2022, 11/03/2021, Additional history exists Mammogram 08/08/2023 08/07/2022 Albumin/Creatinine Ratio 12/18/2023 023, 10/05/2020, 05/28/2019, Additional history exists CKD PHOS USE SMARTSET 50410 12/18/202311/28, 11/20/2020, 09/06/2017 DTaP,Tdap,and Td Vaccines (3 [...] Advance Directives occurred with: Patient Care Teams Pump Service Supervisor Relationship Specialty Start Date End Date Irvin Iverson MD [address] [place] [address] PCP - General Family Medicine 04/02/22 documented as of this encounter
--- OUTSIDE RECORDS SUMMARY | 2023-04-22 11:20 | External Medical Summary | Summary of Care ---
Author Name Unknown Organization [facility] Address [address] [place] [address] Phone [phone] Care Team Providers Care Instructor Looping Name Role Phone Irvin Iverson MD Primary Care Provider + Reason for Visit * Reason Comments eRx-Medication Refill Encounter Details Date Type Department Care Team Description 01/01/2023 Refill Neurology [facility] Roberta [place] [address] [place] [address] Gloria Florez PA-C [address] [place] [address] Allergies Active Allergy Reactions Severity Noted Date Comments Azithromycin Other (Please comment) 03/28/2004 cramps Covid-19 Mrna Vacc (Moderna) 07/24/2021 Severe SOB/ hospitalized. Eggs Or Egg-Derived Products 05/25/2022 Other reaction(s): vomiting Ensure 02/10/2007 Vomiting, diarrhea Mushroom Extract Complex Itching 12/17/2022 Mushrooms Novocain 02/15/2010 hives [place] Extract 05/25/2022 Other reaction(s): Hives Tramadol Seizure [...] Reported on 12/17/2022 Blood Glucose Monitoring Suppl ([employer] VERIO FLEX SYSTEM) w/Device KIT Use as directed. 0 Active Insulin Syringe-Needle U-100 27G X 1/2" 1 ML Use as directed. 0 Active ONETOUCH DELICA LANCETS 33G MISCIndications:T ype 2 diabetes mellitus with hemoglobin A1c goal of less than 8.0% ([facility]) Test as directed. Pt test [...] ons:HTN, goal below 140/80,Coronary artery disease involving [place] heart without angina pectoris, unspecified vessel or [...] Oral Tablet (pLAVix)Indicatio ns:Coronary artery disease involving [place] heart without angina pectoris, unspecified vessel or [...] (congestive heart failure) (HCC),Coronary artery disease involving [place] coronary artery of [place] heart without angina pectoris,Nonrheum atic aortic valve [...] mgIndications:Surveillance for Depo-Provera contraception 150 mg IM [id number] 09/09/2019 Active documented as of this encounter [...] Overview: 09/13 dx [facility]. Genotype 1A. Confirmed 2021. New since 2015. Hx shared needles. Coronary artery disease involving [place] heart without angina pectoris 12/19/2016 S/P coronary [...] with single ROJAS [facility]. EF stable 55-60%. Lung nodules inc9mm LLL. ?infection. Consider kailyn 1mo CT. 11/14 Dr Michael LEDESMA Trazodone 100mg? Suboxone Dr Max Garcia 06/17 incarcerated 01/14 admit [facility]/Ashkan ODvs suicide attempt. 02/13 d/c to [facility] in [place]. 09/13 ICU/intubated-fungal nrxidh-rjtzb-Olcfglk dubliniensis. 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 Cervical incompetence, antepartum 03/02/2010 04/11/2016 Enterococcus UTI 02/16/2010 12/04/2011 Other pulmonary embolism and infarction 02/16/20 10 07/29/2014 Overview: On lovenox 1 ml q 12 hr Supervision of high-risk of young myriam flahertyavihsayne 02/13/2010 08/04/2012 Overview: H/o loss at 20-22wks due to ? Incompetent cervix in 1997-no records on file, needs cervical length check 01/11: WBC elevated at 23; platelets elevated at 464, [facility] Repeat ultrasound is recommended in [...] encounter Miscellaneous Notes * Telephone Encounter - Radha Leija CPhT - 01/09/2023 10:21 AM EDT Pt calling to request Gabapentin. Informed pt that RX is available at their pharmacy. Pt verbalizedunderstanding and stated they will check with their pharmacy regarding this medication. Thank you, Radha Leija Fuel Buyer [facility] ([facility]) (formerly [facility]) 01/09/2023, 10:21 AM * Addendum Note - Gloria Florez PA-C - 01/09/2023 10:04 AM EDTAddended by: GLORIA FLOREZ on: 01/09/2023 10:04 AM Modules accepted: Orders * Telephone Encounter - Marissa Garsia [facility] - 01/09/2023 9:37 AM EDT Pt calling [...] dose increase is appropriate. Thanks, Marissa Garsia [facility] Clinical Pharmacist [facility] Pharm[facility] ([facility]) ([facility]) [phone] * Telephone Encounter - Radha Leija CPhT - 01/09/2023 9:35 AM EDT Pt calling in to request a dose change on their Gabapentin. Current dose: 300 mg Requested dose: 400 mg Reason for request: not working Pref[facility]: [id number] Warm-transferred pt to pharmacist for consultation. Thank you, Radha Leija Fuel Buyer [facility] ([facility]) (formerly [facility]) 01/09/2023, 9:35 AM * Telephone Encounter - Mike Au [facility] - 01/01/2023 3:58 PM EDTSigned Prescriptions: Disp [...] ANDERSON * Telephone Encounter - Valeria Ji MED ASSIST - 01/01/2023 2:37 PM EDT Pending Prescriptions: Disp Refills Gabapentin 300 MG Oral Capsule [Pharmacy M*90 Cap*1 Sig: TAKE 1 CAPSULE BY MOUTH THREE TIMES A DAY * Telephone Encounter - Kathleen Gna CPhT - 01/01/2023 2:26 PM EDT Patient is requesting high priority Did you pend patient's preferred pharmacy and medication before forwarding?yes [id number] Pending Prescriptions: Disp Refills Gabapentin 300 MG [...] Office Visit Neurology Gloria [facility] [address] [facility] [address] 02/20/2023 Office Visit Family Medicine Irvin Iverson MD [address] [facility] [place] [address] 04/19/2023 Office Visit Cardiology Laina Greer CRNP [address] [place] [address] Health Maintenance Due Date Last Done Comments [...] Additional history exists CKD HGB USE SMARTSET 86059 08/07/202308/06, 08/06/2022, 11/03/2021, Additional history exists Mammogram 08/08/2023 08/07/2022 Albumin/Creatinine Ratio 12/18/2023 023, 10/05/2020, 05/28/2019, Additional history exists CKD PHOS USE SMARTSET 44173 12/18/2023 08/2 04/2022, 11/20/2020, 09/06/2017 DTaP,Tdap,and Td [...] Advance Directives occurred with: Patient Care Teams Instructor Looping Relationship Specialty Start Date End Date Irvin Ivesron MD [address] [place] [address] PCP - General Family Medicine 04/02/22 documented as of this encounter
--- OUTSIDE RECORDS SUMMARY | 2023-04-22 11:20 | External Medical Summary | Summary of Care ---
Author Name Unknown Organization [facility] Address [address] [place] [address] Phone [phone] Care Team Providers Care Forestry Aid Name Role Phone Irvin Iverson MD Primary Care Provider + Reason for Visit * Reason Onset Date Comments Test Results 12/18/2022 Encounter Details Date Type Department Care Team Description 12/18/2022 Telephone Cardiology, [facility] [address] [place] [address] Laina Greer CRNP [address] [facility] [place] [address] Test Results Allergies Active Allergy Reactions Severity Noted Date Comments Azithromycin Other (Please comment) 03/28/2004 cramps Covid-19 Mrna Vacc (Moderna) 07/24/2021 Severe SOB/ hospitalized. Eggs Or Egg-Derived Products 05/25/2022 Other reaction(s): vomiting Ensure 02/10/2007 Vomiting, diarrhea Mushroom Extract Complex Itching 12/17/2022 Mushrooms Novocain 02/15/2010 hives [place] Extract 05/25/2022 Other reaction(s): Hives Tramadol Seizure [...] Reported on 12/17/2022 Blood Glucose Monitoring Suppl ([employer] VERIO FLEX SYSTEM) w/Device KIT Use as [...] ons:HTN, goal below 140/80,Coronary artery disease involving [place] heart without angina pectoris, unspecified vessel or [...] Oral Tablet (pLAVix)Indicatio ns:Coronary artery disease involving [place] heart without angina pectoris, unspecified vessel or [...] (congestive heart failure) (HCC),Coronary artery disease involving [place] coronary artery of [place] heart without angina pectoris,Nonrheum atic aortic valve [...] mgIndications:Surveillance for Depo-Provera contraception 150 mg IM [id number] 09/09/2019 Active documented as of this encounter [...] hepatic coma 09/09/2017 Overview: 09/13 dx [facility]. Genotype 1A. Confirmed 2021. New since 2015. Hx shared needles. Coronary artery disease involving [place] heart without angina pectoris 12/19/2016 S/P coronary [...] mid right PDA with single ROJAS [facility]. EF stable 55-60%. Lung nodules inc9mm LLL. ?infection. Consider kailyn 1mo CT. 11/14 Dr Michael LEDESMA Trazodone 100mg? Suboxone Dr Max Garcia 06/17 incarcerated 01/14 admit [facility]/Ashkan ODvs suicide attempt. 02/13 d/c to [facility] in [place]. 09/13 ICU/intubated-fungal jslthr-vsomf-Mvnqwtr dubliniensis. 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 Order placed for bmp * Telephone Encounter [...] Office Visit Neurology Gloria Florez PA-C [address] [facility] [place] [address] 02/20/2023 Office Visit Family Medicine Irvin Iverson MD [address] [place] [address] 04/19/2023 Office Visit Cardiology Laina Greer CRNP [address] [place] [address] Scheduled Orders Name Type Priority Associated Diagnoses [...] 08/06/2021 DISCUSS TOBACCO CESSATION (REFER TO SMARTSET #5370) 08/04/2022 08/04/2021, 08/28/2017 Influenza Vaccine (FLU shot) (#1) 2022 02/10/2021, 03/03/2020 HbA1c 2023 08/06/2022, 06/0 12/2020, 11/04/2019, Additional history exists GFR 06/19/2023 12/17/2022, 07/29, 08/06/2022, Additional history exists PAP SMEAR-ANNUAL AGES 18-100 07/26/2023 07/25/2022, 09/24/2017, 07/14/2014, Additional history exists CKD HGB USE SMARTSET 47221 08/07/202308/06, 08/06/2022, 11/03/2021, Additional history exists Mammogram 08/08/2023 08/07/2022 Albumin/Creatinine Ratio 12/18/2023 023, 10/05/2020, 05/28/2019, Additional history exists CKD PHOS USE SMARTSET 71003 12/18/20232 04/2022, 11/20/2020, 09/06/2017 DTaP,Tdap,and Td Vaccines [...] Advance Directives occurred with: Patient Care Teams Forestry Aid Relationship Specialty Start Date End Date Irvin Iverson MD [address] [place] [address] PCP - General Family Medicine 04/02/22 documented as of this encounter
--- OUTSIDE RECORDS SUMMARY | 2023-04-22 11:21 | External Medical Summary | Summary of Care ---
Author Name Unknown Organization [facility] Address [address] [place] [address] Phone [phone] Care Team Providers Care Sea Shell Gatherer Name Role Phone Irvin Iverson MD Primary Care Provider + Reason for Visit * Reason Comments eRx-Medication Refill Encounter Details Date Type Department Care Team Description 01/01/2023 Refill Neurology [facility] Roberta [place] [address] [place] [address] Gloria Florez PA-C [address] [place] [address] Allergies Active Allergy Reactions Severity Noted Date Comments Azithromycin Other (Please comment) 03/28/2004 cramps Covid-19 Mrna Vacc (Moderna) 07/24/2021 Severe SOB/ hospitalized. Eggs Or Egg-Derived Products 05/25/2022 Other reaction(s): vomiting Ensure 02/10/2007 Vomiting, diarrhea Mushroom Extract Complex Itching 12/17/2022 Mushrooms Novocain 02/15/2010 hives [place] Extract 05/25/2022 Other reaction(s): Hives Tramadol Seizure [...] Reported on 12/17/2022 Blood Glucose Monitoring Suppl ([employer] VERIO FLEX SYSTEM) w/Device KIT Use as [...] ons:HTN, goal below 140/80,Coronary artery disease involving [place] heart without angina pectoris, unspecified vessel or [...] Oral Tablet (pLAVix)Indicatio ns:Coronary artery disease involving [place] heart without angina pectoris, unspecified vessel or [...] (congestive heart failure) (HCC),Coronary artery disease involving [place] coronary artery of [place] heart without angina pectoris,Nonrheum atic aortic valve [...] mgIndications:Surveillance for Depo-Provera contraception 150 mg IM [id number] 09/09/2019 Active documented as of this encounter [...] without hepatic coma 09/09/2017 Overview: 09/13 dx [facility]. Genotype 1A. Confirmed 2021. New since 2015. Hx shared needles. Coronary artery disease involving [place] heart without angina pectoris 12/19/2016 S/P coronary [...] Consider kailyn 1mo CT. 11/14 Dr Rodriguez [facility] Trazodone 100mg? Suboxone Dr Max Garcia 06/17 incarcerated 01/14 admit [facility]/Ashkan ODvs suicide attempt. 02/13 d/c to [facility] in [place]. 09/13 ICU/intubated-fungal eihqyl-ywked-Lkhcnzb dubliniensis. , hand abscess dayna albicans MED [...] 06/23/2019 03/19/2022 Coronary artery disease invo lving [place] coronary artery of benton heart without angina pectoris 06/23/2019 12/14/2021 Encounter for monitoring Suboxone maintenance th erapy 09/24/2018 12/14/2021 Polysubstance abuse 02/26/2018 03/19/2022 Overview: Fall 2017 rehab [place]-meth, etc will establish w/[facility] 02/2018 Suicide attempt [...] 03/11/2013 04/11/2021 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 03/31/2012 015 intermediate current use of anticoagulant therapy 0 08/07/2010 [...] platelets elevated at 464, repeat CBC at in [facility] 02/08: Repeat ultrasound is recommended in [...] not working Preferred pharmacy: [id number] Warm-transferred pt to pharmacist for consultation. Thank you, Radha Leija Health Safety Engineer [facility] ([facility]) (formerly [facility]) 01/09/2023, 9:35 AM * Telephone Encounter - Mike Au RPh - 01/01/2023 3:58 PM EDTSigned Prescriptions: Disp Refills Gabapentin 300 MG Oral Capsule (Neurontin) 90 Cap*1 Sig: TAKE 1CAPSULE BY MOUTH THREE TIMES A DAYAuthorizing Provider: GLORIA LANGE * Telephone Encounter - Gloria Lange MD - 01/01/2023 3:29 PM EDTSigned Prescriptions: Disp Refills Gabapentin 300 MG Oral Capsule (Neurontin) 90 Cap*1 Sig: TAKE 1 CAPSULE BY MOUTH THREE TIMES A DAY Authorizing Provider: GLORIA LANGE * Telephone Encounter - Valeria Ji MED [...] and medication before forwarding?yes [facility]acy[id number] Pending Prescriptions: Disp Refills Gabapentin 300 [...] Office Visit Neurology Gloria Florez PA-C [address] [facility] [place] [address] 02/20/2023 Office Visit Family Medicine Irvin Iverson MD [address] [place] [address] 04/19/2023 Office Visit Cardiology Laina Greer CRNP [address] [place] [address] Health Maintenance Due Date Last Done Comments [...] Additional history exists CKD HGB USE SMARTSET 75532 08/07/202308/06, 08/06/2022, 11/03/2021, Additional history exists Mammogram 08/08/2023 08/07/2022 Albumin/Creatinine Ratio 12/18/2023 023, 10/05/2020, 05/28/2019, Additional history exists CKD PHOS USE SMARTSET 80593 12/18/202311/28, 11/20/2020, 09/06/2017 DTaP,Tdap,and Td Vaccines (3 [...] Advance Directives occurred with: Patient Care Teams Sea Shell Gatherer Relationship Specialty Start Date End Date Irvin Iverson MD [address] [place] [address] PCP - General Family Medicine 04/02/22 documented as of this encounter
--- OUTSIDE RECORDS SUMMARY | 2023-04-22 11:21 | External Medical Summary | Summary of Care ---
Author Name Unknown Organization [facility] Address [address] [place] [address] Phone [phone] Care Team Providers Care Time Signal Wirer Name Role Phone Irvin Iverson MD Primary Care Provider + Reason for Visit * Reason Comments Follow Up Encounter Details Date Type Department Care Team Description 12/17/2022 Office Visit [facility] [address] [place] [address] Laina Greer CRNP [address] [facility] [place] [address] Chronic diastolic CHF (congestive heart failure) (HCC)*; Coronary artery disease involving passamaquoddy coronary artery of passamaqu[place]dy heart without angina pectoris; Nonrheumatic aortic valve stenosis; HTN, goal below 140/90; Dyslipidemia, goal LDL below 70 Allergies Active Allergy Reactions Severity Noted Date Comments Azithromycin Other (Please comment) 03/28/2004 cramps Covid-19 Mrna Vacc (Moderna) 07/24/2021 Severe SOB/ hospitalized. Eggs Or Egg-Derived Products 05/25/2022 Other reaction(s): vomiting Ensure 02/10/2007 Vomiting, diarrhea Novocain 02/15/2010 hives Independence Extract 05/25/2022 Other reaction(s): Hives Tramadol Seizure High 09/09/2012 documented as of this encounter (statuses as of 12/17/2022) Medications Medication Sig Dispensed Refills Start Date End Date Status LANCET DEVICE MISCIndications:DM type 2, not at goal (HCC) use as directed - for One Touch Ultra 1 box 5 0 Active Blood Glucose Monitoring Suppl (ONETOUCH VERIO FLEX SYSTEM) w/Device KIT Use as directed. 0 Active Insulin Syringe-Needle U-100 27G X 1/2" 1 ML Use as directed. 0 Active ONETOUCH DELICA LANCETS 33G MISCIndications:Ty pe 2 diabetes mellitus with hemoglobin A1c goal of less than 8.0% (HCC) Test as directed. Pt test 2 times daily. E11.9 100 Each 11 9 Active NOVOFINE 32G PEN NEEDLE 32G X 6 MM MISCIndications:Ty pe 2 diabetes mellitus with hemoglobin A1c goal of less than 8.0% (HCC) USE ONCE DAILY 100 Each 1 0 Active Nitroglycerin 0.4 MG Sublingual Tablet Sublingual (Nitrostat) [...] Oral Capsule Take 1 Capsule by mouth in the morning. 0 Active Omeprazole 20 [...] a day. 60 Tablet 1 2 Active OneTouch Ultra Blue In Vitro Strip (Glucose Blood) Test three times daily. Dx E11.9 poorly controlled 300 Strip 3 2 Active Meclizine HCl 25 MG Oral Tablet (Antivert)Indicati ons:Vertigo TAKE 1 TABLET BY MOUTH THREE TIMES A DAY NEEDED FOR DIZZINESS 90 Tablet 3 2 Active oxygen IN GASIndications:Noc turnal hypoxemia Use as directed 2 L/min(Oxygen) as needed (via nasal cannula with exertion). titrate to off if SpO2 90-94%. 3 LPM via nasal cannula at bedtime and with all sleep. 1 Each 0 2 Active Spironolactone 25 MG Oral Tablet (Aldactone)Indicat ions:Fatigue, unspecified type Take by mouth 0.5 Tablets in the morning. 90 Tablet 1 2 Active medroxyPROGESTERon e Acetate 150 MG/ML Intramuscular Suspension (Depo-Provera)Kaylen cations:Surveillan ce for Depo-Provera contraception INJECT 1 ML INTRAMUSCULARLY EVERY 3 MONTHS 1 mL 3 2 Active Ferrous Sulfate 325 (65 Fe) MG Oral Tablet (Feosol)Indication s:Iron deficiency anemia, unspecified iron deficiency anemia type Take by mouth 1 Tablet every other day . 45 Tablet 3 2 Active Atorvastatin Calcium 80 MG Oral Tablet (Lipitor)Indicatio ns:HTN, goal below 140/80,Coronary artery disease involving pass[place]quoddy heart without angina pectoris, unspecified vessel or [...] 14 DAYS 22 g 10 3 Active Gabapentin 300 MG Oral Capsule (Neurontin) TAKE 1 CAPSULE BY MOUTH THREE TIMES A DAY 90 Capsule 1 3 Active Cyclobenzaprine HCl 10 MG Oral Tablet (Flexeril)Indicati ons:Lumbar disc disease TAKE 1 TABLET BY MOUTH IN THE MORNING AND BEFORE BEDTIME 60 Tablet 0 3 Active Clopidogrel Bisulfate 75 MG Oral Tablet (pLAVix)Indication s:Coronary artery disease involving pass[place]quoddy heart without angina pectoris, unspecified vessel or [...] (Demadex)Indicatio ns:Chronic diastolic CHF (congestive heart failure) ([facility]),Coronary artery disease involving pass[place]dy coronary artery of passamaquoddy heart without angina pectoris,Nonrheuma tic aortic valve stenosis,HTN, goal below 140/90,Dyslipidemi a, goal LDL below 70 Take 1 Tablet by mouth in the morning. 60 Tablet 5 3 Active Torsemide 20 MG Oral Tablet (Demadex) Take 1 Tablet by mouth in the morning and 1 Tablet before bedtime. 60 Tablet 5 3 12/18/19 23 Discontinu ed(Refill) metFORMIN HCl 1000 MG Oral Tablet (Glucophage)Indica tions:Type 2 diabetes mellitus with hemoglobin A1c goal of less than 8.0% ([facility]) Take 1 Tablet by mouth in the morning and 1 Tablet before bedtime. With food.. 180 Tablet 0 3 12/18/19 23 Discontinu ed(Patient preference /discontin uation) Hospital, Clinic, or Other Facility Administered Medication Ordered Dose Route Frequency Start Date End Date Status lidocaine 1 % inj 21 mgIndications:Cellulitis of arm, left,Abscess of multiple sites of upper arm 21 mg IJ Daily(AM) 09/20/2017 Active medroxyPROGESTERone acetate (DEPO-PROVERA) inj NORBERTO 150 mgIndications:Surveillance for Depo-Provera contraception 150 mg IM [id number] 09/09/2019 Active documented as of this encounter (statuses as of 12/17/2022) Active Problems Problem Noted Date Adrenal adenoma, [...] without hepatic coma 09/09/2017 Overview: 09/13 dx [facility]. Genotype 1A. Confirmed 2021. New since 2015. Hx shared needles. Coronary artery disease involving passamaquoddy heart without angina pectoris 12/19/2016 S/P coronary [...] Consider kailyn 1mo CT. 11/14 Dr Michael LEEDSMA Trazodone 100mg? Suboxone Dr Max Garcia 06/17 incarcerated 01/14 admit [facility] ODvs suicide attempt. 02/13 d/c to [facility] in [place]. 09/13 ICU/intubated-fungal [id number] dubliniensis. , hand abscess dayna albicans MED [...] as of this encounter (statuses as of 12/17/2022) Resolved Problems Problem Noted Date Resolved Date Hydronephrosis, right 12/06/2020 04/11/2021 Acute on chronic diastolic congestive heart fail ure 03/03/2020 08/26/2020 Major depressive disorder, recurrent, unspecifie d 12/30/2019 12/14/2021 Uncomplicated opioid dependence 06/23/2019 03/19/2022 Coronary artery disease invo lving passamaquoddy coronary artery of pass[place]qu[place]dy heart without angina pectoris 06/23/2019 12/14/2021 Encounter for monitoring Suboxone maintenance th erapy 09/24/2018 12/14/2021 Polysubstance abuse 02/26/2018 03/19/2022 Overview: Fall 2017 rehab [facility] will establish w/[facility] 02/2018 Suicide attempt [...] 03/11/2013 04/11/2021 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 03/31/2012 015 [facility] current use of anticoagulant therapy 0 08/07/2010 12/04/2011 Overview: ICD-10 update of inactive term Anticoagulation management encounter 08/07/2010 12/04/2011 ADVANCE DIRECTIVE INFORMATION 03/02/2010 Overview: No, Advance Directive brochure offered , patient declined. Cervical incompetence, antepartum 03/02/2010 04/11/2016 Enterococcus UTI 02/16/2010 12/04/2011 Other pulmonary embolism and infarction 02/16/20 10 07/29/2014 Overview: On lovenox 1 ml q 12 hr Supervision of high-risk of young myriam sasha 02/13/2010 08/04/2012 Overview: H/o loss at 20-22wks due to ? Incompetent cervix in 1997-no records on file, needs cervical length check 01/11: WBC elevated at 23; platelets elevated at 464, repeat CBC at [facility] 02/08: Repeat ultrasound is recommended in [...] as of this encounter (statuses as of 12/17/2022) Immunizations Name Administration Dates Next Due COVID-19 [...] Sign Reading Time Taken Comments Blood Pressure 108/64 12/17/2022 1:08 PM EDT Pulse 84 12/17/2022 1:08 PM EDT Temperature - - Respiratory Rate - - Oxygen Saturation 96% 12/17/2022 1:08 PM EDT Inhaled Oxygen Concentration - - Weight 80.3 kg (177 lb) 12/17/2022 1:08 PM EDT Height - - Body Mass Index 30.38 08/22/2022 10:02 AM EDT documented in this encounter Progress Notes * JOSETTE Herrera - 12/17/2022 1:30 PM EDT Images from the original note were not included. Cardiology Outpatient Visit 12/17/2022 Primary Entry Level Sales Representative: Dr. Gonzales Cardiac problems Premature atherosclerotic coronary disease s/p 2-vessel coronary intervention 10/2016 receiving ROJAS to the ramus intermedius and distal circumflex for NTEMI Repeat catheterization 02/23/2020, s/p PCI with ROJAS to the RCA PDA on 02/23/20 Widely patent ramus, circumflex, PDA stents.Chronic, moderate to severe, calcified mid LAD stenosisat bifurcation with D1 (LAD obstructive by IFR 0.87), per cardiac cath 12/10/2022 Congenitally abnormal aortic valve with moderate aortic stenosis and +1 aortic regurgitation. Moderate confirmed per cath 12/10/2022 COPD with chronic hypoxic respiratory failure- follows with pulmonary. Mild-moderate pulmonary HTN. Type 2 diabetes mellitus with diabetic neuropathy Hypertension. Hyperlipidemia. Recurrent soft tissue infections. Chronic hepatitis-C Opioid dependence, polysubstance abuse Vitamin-D deficiency HPI Medically complex 42-year-old female presents after recent hospital admission to [facility]. Has "no-showed" to multiple appointments over the last year. This admission found to be in hypoxic respiratory failure secondary to multifocal pneumonia and septic shock. Patient required high level of supplemental oxygen therapy on presentation and was ultimately intubated (extubated 12/07/2022). Treated with nebulizers, IV steroids, and IV antibiotics. HS tropinin elevated (843.8>>751.7>>754.3). EKG-sinus tachycardia without acute ST segment changes suggestive of ischemia. Ultimately, underwent a heart catheterization showing widely patent ramus, circumflex, PDA stents, chronic, moderate to severe, calcified mid LAD stenosis at bifurcation with D1 (LAD obstructive by IFR 0.87) and moderate aortic stenosis. Medical management recommended of chronic mid LAD bifurcation lesion with consideration of PCI to the LAD should refractory angina occur. Today the patient presents feeling generally well, but does note some weakness since discharge fromthe hospital. Today she was able to ambulate back the hallway with the assistance of pushing a wheelchair. She denies any chest pain. Does have some mild dyspnea with exertion. No palpitations. Denies lightheadedness or dizziness. No syncope. No orthopnea or PND. Does have some mild lower extremityedema. Torsemide was discontinued while inpatient. She states she is compliant with all medications and offers no side effects. Current Outpatient Medications Medication Sig Dispense Refill LANCET DEVICE MISC use as directed - for One Touch Ultra 1 box 5 Blood Glucose Monitoring Suppl ([employer] VERIO FLEX SYSTEM) w/Device KIT Use as directed. Insulin Syringe-Needle U-100 27G X 1/2" 1 ML Use as directed. ZENTTOUCH DELICA LANCETS 33G MISC Test as directed. Pt test 2 times daily. E11.9 100 Each 11 NOVOFINE 32G PEN NEEDLE 32G X 6 MM MISC USE ONCE DAILY 100 Each 1 Nitroglycerin 0.4 MG Sublingual Tablet Sublingual (Nitrostat) [...] Tablets under the tongue in the morning. Loratadine 10 MG Oral Capsule Take 1 Capsule by mouth in the morning. Omeprazole 20 MG Oral [...] as needed for Wheezing. 300 mL 1 Topiramate 25 MG Oral Tablet (Topamax) Take 1 Tablet by mouth 2 times a day. 60 Tablet 1 OneTouch Ultra Blue In Vitro Strip (Glucose Blood) Test three times daily. Dx E11.9 poorly controlled 300 Strip 3 Meclizine HCl 25 MG Oral Tablet (Antivert) TAKE 1 TABLET BY MOUTH THREE TIMES A DAY NEEDED FOR DIZZINESS 90 Tablet 3 oxygen IN GAS Use as directed 2 L/min(Oxygen) as needed (via nasal cannula with exertion). titrate to off if SpO2 90-94%. 3 LPM via nasal cannula at bedtime and with all sleep. 1 Each 0 Spironolactone 25 MG Oral Tablet (Aldactone) Take by mouth 0.5 Tablets in the morning. 90 Tablet 1 medroxyPROGESTERone Acetate 150 MG/ML Intramuscular Suspension (Depo-Provera) INJECT 1 ML INTRAMUSCULARLY EVERY 3 MONTHS 1 mL 3 Ferrous Sulfate 325 (65 Fe) MG Oral Tablet (Feosol) Take by mouth 1 Tablet every other day . 45 Tablet 3 Atorvastatin Calcium 80 MG Oral Tablet (Lipitor) Take 1 Tablet by mouth in the morning. 90 Tablet 3 Escitalopram Oxalate 10 MG Oral Tablet (Lexapro) Take 1 Tablet by mouth in the morning. 90 Tablet 3 traZODone HCl 50 MG Oral Tablet (Desyrel) Take 1.5 Tablets by mouth at bedtime. 135 Tablet 1 busPIRone HCl 15 MG Oral Tablet (Buspar) Take 1 Tablet by mouth in the morning and 1 Tablet before bedtime. 180 Tablet 3 levETIRAcetam 500 MG Oral Tablet (Keppra) Take 1 Tablet by mouth in the morning and 1 Tablet beforebedtime. 180 Tablet 1 Escitalopram Oxalate 20 MG Oral Tablet (Lexapro) Take 1 Tablet by mouth in the morning. 90 Tablet 3 Potassium Chloride Yvonne ER 20 MEQ Oral Tablet Extended Release (Klor-Con M20) Take 1 Tablet by mouth in the morning. 90 Tablet 1 Metoprolol Succinate ER 25 MG Oral Tablet Extended Release 24 Hour (toPROL XL) Take 1 Tablet by mouth in the morning. 90 Tablet 1 ProAir HFA 108 (90 Base) MCG/ACT Inhalation Aerosol Solution Inhale 2 Puffs by mouth every 4 hours as needed for Cough or Wheezing. 54 g 1 Fluticasone Furoate-Vilanterol 200-25 MCG/ACT Inhalation Aerosol Powder Breath Activated (BREO ellipta) Inhale 1 Puff by mouth in the morning. Please rinse mouth out after using.. 180 Blister Dosing Unit 1 Aspirin Low Dose 81 MG Oral Tablet Delayed Release (aspirin enteric coated) TAKE 1 TABLET BY MOUTH EVERY DAY 100 Tablet 3 Famotidine 20 MG Oral Tablet (Pepcid) TAKE 1 TABLET BY MOUTH 2 TIMES A DAY NEEDED FOR HEARTBURN.180 Tablet 2 Lisinopril 5 MG Oral Tablet (Prinivil) TAKE 1 TABLET BY MOUTH EVERY DAY IN THE MORNING 90 Tablet 1 Mupirocin 2 % External Ointment (Bactroban) APPLY TOPICALLY TO AFFECTED AREA THREE TIMES A DAY FOR UP TO 14 DAYS 22 g 10 Gabapentin 300 MG Oral Capsule (Neurontin) TAKE 1 CAPSULE BY MOUTH THREE TIMES A DAY 90 Capsule 1 Cyclobenzaprine HCl 10 MG Oral Tablet (Flexeril) TAKE 1 TABLET BY MOUTH IN THE MORNING AND BEFORE BEDTIME 60 Tablet 0 Clopidogrel Bisulfate 75 MG Oral Tablet (pLAVix) TAKE 1 TABLET BY MOUTH EVERY DAY 90 Tablet 1 Acetaminophen ER 650 MG Oral Tablet Extended Release (Tylenol 8 Hour) Take 1 Tablet by mouth every 8 hours as needed for Pain, Moderate. 30 Tablet 0 Torsemide 20 MG Oral Tablet (Demadex) Take 1 Tablet by mouth in the morning. 60 Tablet 5 metFORMIN HCl 1000 MG Oral Tablet (Glucophage) Take 1 Tablet by mouth in the morning and 1 Tablet before bedtime. With food.. (Patient not taking: Reported on 12/17/2022) 180 Tablet 0 Current Facility-Administered Medications Medication Dose Route Frequency Provider Last Rate Last Admin lidocaine 1 % inj 21 mg 2.1 mL Injection Daily(AM) Irvin Iverson MD 21 mg at 09/26/17 1542 medroxyPROGESTERone acetate (DEPO-PROVERA) inj NORBERTO 150 mg 150 mg Intramuscular Q90 Days JOSETTE Sloan 150 mg at 05/17/21 1414 Past Medical History: Diagnosis Date Adrenal adenoma, right 08/10/2022 Cervical incompetence, antepartum 03/02/2010 Chronic hepatitis C without hepatic coma (HCC) 09/09/201709/13 dx [facility]. New since 2015. Hx shared needles. NEEDS repeat Hep B series. Chronic hypoxemic respiratory failure (HCC) 07/24/2021 Coronary artery disease involving passama[place]oddy heart without angina pectoris 12/19/2016 DM type [...] less than 8.0% ([facility]) 02/10/2009 lantus + metformin Past Surgical History: [...] encephalopathy. PATIENT HAS A CORONARY ARTERY STENT 2017 REMOVAL OF TONSILS, UNDER AGE 10 1990 Tonsils Removal,<10 Y/O REMOVE GALLBLADDER 1998 Cholecystectomy SPINAL FUSION, LUMBAR, COMBINED 11/2012 lumbar - Toretti THIGH OR KNEE SURGERY NEC 1994 Knee/Leg Other Procedures Unlisted TRANSESOPHAGEAL ECHO 09/18/2020 [facility] Dr Hall. Social History Tobacco Use Smoking status: Every Day Packs/day: 2.00 Years: 31.00 Pack years: 62.00 Types: Cigarettes Smokeless tobacco: Never Tobacco comments: started age 10- down to a few cigarettes a day Vaping Use Vaping Use: Never used Substance Use Topics Alcohol use: No Drug use: Not Currently Types: Cocaine, Methamphetamines, Oxycodone Comment: [facility], cocaine in past. pills in past. IV narcotics Review of patient's allergies indicates: Allergen Reactions Tramadol Seizure Azithromycin Other (Please comment) cramps Covid-19 Mrna Vacc (Moderna) Severe SOB/ hospitalized. Eggs Or Egg-Derived Products Other reaction(s): vomiting Ensure Vomiting, diarrhea Novocain hives Strawberries [Independence Extract] Other reaction(s): Hives Review of Systems: See HPI for pertinent positives. All others negative, other than those noted in HPI. Physical Exam BP 108/64 | Pulse 84 | Wt 80.3 kg (177 lb) | SpO2 96% | BMI 30.38 kg/m | BSA 1.9 m General: No acute distress. A+Ox3. HEENT: Normocephalic. Atraumatic. PERRL. EOMI. Conjunctiva and sclera clear. NECK: No carotid bruits. No JVD. Carotid upstrokes are brisk. Heart: RRR. S1 and S2 noted. +3/6 systolic murmur. No rubs, gallops. Lungs: + expiratory wheezing. Abdomen: Normal bowel sounds. Soft. Nontender. No masses or organomegaly. No abdominal bruits. Extremities: +1 BLLE pitting edema. No clubbing or cyanosis. Pulses: radial=2/4, posterior tibial=2/4, dorsalis pedis = 2/4. NEURO: No focal deficits. PSYCH: Normal. Lab data/imaging study review: Cardiac cath at [facility] 12/10/2022 LM -normal caliber, no significant disease LAD -large caliber vessel, calcified, 50 to 60% mid stenosis at takeoff of D1, 30% distal stenosis with myocardial bridging, apical vessel continues around apex without significant disease. Small to medium D1 without disease. Ramus-small to medium caliber, 30% ostial, mid segment stent widely patent Circumflex -medium caliber, 30% mid segment stenosis, distal stent into left PLB widely patent without significant in-stent restenosis. RCA -dominant, medium caliber, 30% mid segment disease, 30% distal stenosis just before PDA. Mid RPDA stent widely patent. Echo 12/05/2022 Echocardiogram 07/11/2021 at [facility] LVEF 50-55% RV systolic function normal Left atrium and right atrium normal in size. Moderate aortic stenosis STEVEN 09/19/2020 at [facility] Trileaflet aortic valve, moderately calcified with moderate aortic stenosis. Aortic valve area calculated to be 1.07 cm2 by plain imagery consistent with moderate stenosis. No valvular lesions consistent with endocarditis Cardiac cath report reviewed dated 02/23/20: Impression: 1. Severe CAD involving RCA PDA, new severely stenotic area compared to 2019 cath. 2. Patent circumflex PDA and ramus stents. 3. Otherwise, mild to moderate nonobstructive CAD. 4. Aortic regurgitation 1+ 5. Mild to moderate aortic stenosis. 6. Mildly elevated left-sided filling pressure. Plan: 1. Images reviewed with Dr. Hay of interventional cardiology who plans to attend PCI of RCA PDA. *Successful PCI of mid right PDA with single drug-eluting stent (2.25 x 12 mm Bells). Echo February 22, 2020 at [facility]: Normal LV size and systolic function with ejection fraction 65-70%. No wall motion abnormalities. Mild concentric LVH. Mild left atrial dilation. Echocardiogram February 09, 2020 at [facility]: LV systolic function is normal. Mild concentric LVH. Ejection fraction 55-60%. Mild valvular aortic stenosis with mild AI. Impression/Plan: 1. Chronic diastolic congestive heart failure, NYHA class 3 -NYHA class 2-3 -Mildly hypervolemic on exam 1. Continue GDMT with lisinopril 5 mg daily, metoprolol succinate 25 mg daily, spironolactone 12.5 mg daily. Restart Torsemide at a lower dose, 20 mg daily (previously on 20 mg BID). Repeat BMP following today's appt. 2. Follow a low-sodium diet (less than 2g/2000mg daily). Start daily weights- weigh first thing in the morning after using the bathroom. Should weight increase 3 pounds in 1 day or 5 pounds in 1 week, notify cardiology. 3. Caution use of flexeril. 2. Coronary artery disease involving pass[place] coronary artery of [place]dy heart without angina pectoris -Premature atherosclerotic coronary disease s/p 2-vessel coronary intervention 10/2016 receiving DESto the ramus intermedius and distal circumflex for NTEMI -Repeat catheterization 02/23/2020, s/p PCI with ROJAS to the RCA PDA on 02/23/20 -Widely patent ramus, circumflex, PDA stents.Chronic, moderate to severe, calcified mid LAD stenosis at bifurcation with D1 (LAD obstructive by IFR 0.87), per cardiac cath 12/10/2022 -Stable, no angina. EKG showing NSR without acute ST segment changes. 1. Continue DAPT with Plavix 75 mg daily and aspirin 81 [address] daily[address]. Hay at [facility]: Medical management recommended of chronic mid LAD bifurcation lesion withconsideration of PCI to the LAD should refractory angina occur. 3. Continue metoprolol 25 mg daily 4. Avoid NSAIDs 3. Nonrheumatic aortic valve stenosis -Congenitally abnormal aortic valve with moderate aortic stenosis noted on echo 07/11/2021 -Stable moderate per cath 11/2022. 1. Recommend repeat echo in 1 year to reassess AV gradients 4. HTN, goal below 140/90 Well controlled. No changes indicated at this time. 5. Dyslipidemia, goal LDL below 70 LDL 70- controlled. 1. Continue atorvastatin 80 mg daily There are no Patient Instructions on file for this visit. The patient agrees to the above plan and will call with additional questions or concerns. ER with all emergencies advised. Follow Up: Return in about 3 months (around 03/19/2023). I spent a total of 45 minutes on the date of service in preparation, delivery, and documentation ofthe care provided to Fritz Gonzalez excluding any time spent in the performance of separately billed services. JOSETTE Charles, Department of Cardiology This chart was completed in part utilizing [employer] Speech Voice Recognition Software. Grammatical errors, random word insertions, prounoun errors, and incomplete sentences are an occasional consequence of this system due to software limitations, ambient noise, and hardware issues. Any formal questions or concerns about the content, text, or information contained within the body of this dictation should be directly addressed to the provider for clarification. documented in this encounter Nursing Notes * Kamille Bergman CMA - 12/17/2022 1:10 PM EDT Examination Room: 7 Name: Fritz Gonzalez Date of : (1980) Reason for Visit: annual Interim Hospitalization(s): Nov 2022 Problems/Concerns: denied Chest Pain/SOB: denied My [facility] is a way you can talk to your provider online through e-mail. Would you like to sign up? I can activate it for you? DECLINES Patient was instructed to not get up on the exam table until directed and assisted by their provider; patient is to remain seated in the chair/ wheelchair/ exam table for fall prevention and safety reasons. Patient is aware to have assistance to step down off exam table with personnel. Patient voiced full comprehension of instructions. documented in this encounter Miscellaneous Notes * Addendum Note - AUSTIN Chapin - 12/17/2022 1:59 PM EDTAddended by: HECTOR THORNTON on: 12/17/2022 01:59 PM Modules accepted: Orders documented in this encounter Plan of Treatment Upcoming Encounters Date Type Specialty Care Team Description 12/17/2022 Office Visit Family Medicine Marielena Cline CRNP [address] [place] [id number] Arrived 02/19/2023 Office Visit Neurology Gloria Florez PA-C [address] [place], [place] [address] [address] 02/20/2023 Office Visit Family Medicine Irvin Iverson MD [address] [place] [address] 04/19/2023 Office Visit Cardiology Laina Greer CRNP [address] [place] [address] Scheduled Orders Name Type Priority Associated Diagnoses Orde r Schedule BASIC METABOLIC PANEL Lab Routine Chronic diastolic CHF (congestive heart failure) (HCC) Coronary artery disease involving pass[place] coronary artery of pass[place]dy heart without angina pectoris Nonrheumatic aortic valve stenosis HTN, goal below 140/90 Dyslipidemia, goal LDL below 70 Expected: 12/17/2022, Expires: 12/18/2023 EKG EKG Routine Chronic diastolic CHF (congestive heart failure) (HCC) Ordered: 12/17/2022 Health Maintenance Due Date Last Done Comments Pneumococcal Vaccine: Pediatrics (0 to 5 Years) and At-Risk Patients (6 to 64 Years) (2 - PCV) 11/28/2006 11/28/2005 B-12 11/03/2020 11/04/2019, 07/30, 08/28/2017 DIABETES-EYE EXAM 11/03/2020 11/04/2019, , 06/29/2008 (Done elsewhere), Additional history exists COVID-19 Vaccine (2 - Moderna series) 11/11/2020 09/16/2020 DIABETES-FOOT EXAM 03/03/2021 03/03/2020, 0 09/24/2018, 09/20/2017, Additional history exists Depression Screening, Annual for Pts 12 and Over 03/03/2021 03/03/2020, 08/28/2017 *SPIROMETRY ONCE FOR ASTHMA-ADULT 08/06/2021 Albumin/Creatinine Ratio 10/05/2021 021, 05/28/2019, 08/26/2018, Additional history exists CKD PHOS USE SMARTSET 33142 11/20/2021 11/20/2020, 0 09/06/2017 DISCUSS TOBACCO CESSATION (REFER TO SMARTSET #4966) 08/04/2022 08/04/2021, 08/28/2017 Influenza Vaccine (FLU shot) (#1) 2022 02/10/2021, 03/03/2020 HbA1c 2023 08/06/2022, 06/0 12/2020, 11/04/2019, Additional history exists GFR 02/21/2023 08/22/2022, 07/28, 11/03/2021, Additional history exists PAP SMEAR-ANNUAL AGES 18-100 07/26/2023 07/25/2022, 09/24/2017, 07/14/2014, Additional history exists CKD HGB USE SMARTSET 61652 08/07/202308/06, 08/06/2022, 11/03/2021, Additional history exists Mammogram 08/08/2023 08/07/2022 DTaP,Tdap,and Td Vaccines (3 - Td or [...] Diagnosis Chronic diastolic CHF (congestive heart failure) (HCC)- Primary Chronic diastolic heart failure Coronary artery disease involving [place] coronary artery of [place] heart without angina pectoris Nonrheumatic aortic valve [...] Advance Directives occurred with: Patient Care Teams Time Signal Wirer Relationship Specialty Start Date End Date Irvin Iverson MD [address] [place] [address] PCP - General Family Medicine 04/02/22 documented as of this encounter
--- OUTSIDE RECORDS SUMMARY | 2023-04-22 11:21 | External Medical Summary | Summary of Care ---
Author Name Unknown Organization [facility] Address [address] [place] [address] Phone [phone] Care Team Providers Care Counsellors Name Role Phone Irvin Kramer MD Primary Care Provider + Reason for Visit * Reason Onset Date Comments Medication Refill 01/03/2023 Encounter Details Date Type Department Care Team Description 01/03/2023 Refill [facility] [address] [facility] [address] Irvin Kramer MD [address] [address] Iron deficiency anemia, unspecified iron deficiency anemia type Allergies Active Allergy Reactions Severity Noted Date Comments Azithromycin Other (Please comment) 03/28/2004 cramps Covid-19 Mrna Vacc (Moderna) 07/24/2021 Severe SOB/ hospitalized. Eggs Or Egg-Derived Products 05/25/2022 Other reaction(s): vomiting Ensure 02/10/2007 Vomiting, diarrhea Mushroom Extract Complex Itching 12/17/2022 Mushrooms Novocain 02/15/2010 hives [place] Extract 05/25/2022 Other reaction(s): Hives Tramadol Seizure High 09/09/2012 documented as of this encounter (statuses as of 01/04/2023) Medications Medication Sig Dispensed Refills Start Date [...] ns:HTN, goal below 140/80,Coronary artery disease involving [place] heart without angina pectoris, unspecified vessel or [...] 12/17/2022 Cyclobenzaprine HCl 10 MG Oral Tablet (Flexeril)Indicati ons:Lumbar disc disease TAKE 1 TABLET BY MOUTH IN THE MORNING AND BEFORE BEDTIME 60 Tablet 0 3 Active Clopidogrel Bisulfate 75 MG Oral Tablet (pLAVix)Indication s:Coronary artery disease involving [place] heart without angina pectoris, unspecified vessel or [...] (congestive heart failure) (HCC),Coronary artery disease involving cra[place] coronary artery of craig heart without angina pectoris,Nonrheuma tic aortic valve [...] other day. 45 Tablet 3 3 Active Ferrous Sulfate 325 (65 Fe) MG Oral Tablet (Feosol)Indication s:Iron deficiency anemia, unspecified iron deficiency anemia type Take by mouth 1 Tablet every other day . 45 Tablet 3 2 01/04/20 23 Discontinu ed(Refill) Hospital, Clinic, or Other Facility Administered Medication Ordered Dose Route Frequency Start Date End Date Status lidocaine 1 % inj 21 mgIndications:Cellulitis of arm, left,Abscess of multiple sites of upper arm 21 mg IJ Daily(AM) 09/20/2017 Active medroxyPROGESTERone acetate (DEPO-PROVERA) inj NORBERTO 150 mgIndications:Surveillance for Depo-Provera contraception 150 mg IM [id number] 09/09/2019 Active documented as of this encounter (statuses as of 01/04/2023) Active Problems Problem Noted Date Adrenal adenoma, [...] hepatic coma 09/09/2017 Overview: 09/13 dx [facility]. Genotype 1A. Confirmed 2021. New since 2015. Hx shared needles. Coronary artery disease involving craig heart without angina pectoris 12/19/2016 S/P coronary [...] mid right PDA with single ROJAS [facility]. EF stable 55-60%. Lung nodules inc9mm LLL. ?infection. Consider kailyn 1mo CT. 11/14 Dr Michael LEDESMA Trazodone 100mg? Suboxone Dr Max Garcia 06/17 incarcerated 01/14 admit [facility]/Ashkan ODvs suicide attempt. 02/13 d/c to [facility] in [place]. 09/13 ICU/intubated-fungal pxfmtr-eierc-Yajpezv dubliniensis. , hand abscess dayna albicans MED [...] as of this encounter (statuses as of 01/04/2023) Resolved Problems Problem Noted Date Resolved Date Hydronephrosis, right 12/06/2020 04/11/2021 Acute on chronic diastolic congestive heart fail ure 03/03/2020 08/26/2020 Major depressive disorder, recurrent, unspecifie d 12/30/2019 12/14/2021 Uncomplicated opioid dependence 06/23/2019 03/19/2022 Coronary artery disease invo lving craig coronary artery of craig heart without angina pectoris 06/23/2019 12/14/2021 Encounter for monitoring Suboxone maintenance th erapy 09/24/2018 12/14/2021 Polysubstance abuse 02/26/2018 03/19/2022 Overview: Fall 2017 rehab [place]-[facility], etc will establish w/[facility] 02/2018 Suicide attempt [...] 03/11/2013 04/11/2021 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 03/31/2012 015 [facility] current use of anticoagulant therapy 0 08/07/2010 [...] platelets elevated at 464, repeat CBC at [facility] 02/08: Repeat ultrasound is recommended in [...] plt elevated at 464; repeat CBC at [facility] Asthma with severity to be determined 10/20/2009 [...] as of this encounter (statuses as of 01/04/2023) Immunizations Name Administration Dates Next Due COVID-19 [...] Telephone Encounter - Irvin Kramer MD - 01/04/2023 10:14 AM EDTSigned Prescriptions: Disp Refills Ferrous Sulfate 325 (65 Fe) MG Oral Tablet*45 Tab*3 Sig: Take 1 Tablet by mouth every other day. Authorizing Provider: IRVIN KRAMER * Telephone Encounter - Colleen Mireles RP - 01/04/2023 9:59 AM EDTPending Prescriptions: Disp Refills Ferrous Sulfate 325 (65 Fe) MG Oral Tablet*45 Tab*3 Sig: Take 1 Tablet by mouth every other day. * Telephone Encounter - Anali Malloy CPhT - 01/03/2023 8:19 AM EDT Did you pend patient's preferred pharmacy and medication before forwarding?yes Pharmacy: [id number] [address] [facility] Pending Prescriptions: Disp Refills Ferrous Sulfate 325 (65 Fe) MG Oral Table*45 Tab*3 Sig: Take 1 Tablet by mouth every other day. Last Visit: 12/17/2022 (in office), 12/15/2021 (telemedicine) Next Visit: 02/20/2023 If no future appointments scheduled, and last appointment is greater than a year ago, please schedule patient for a follow-up appointment Last date the medication was ordered: 12/06/2021 Is this request for a controlled substance?No [...] Office Visit Neurology Gloria Florez PA-C [address] [place] [address] 02/20/2023 Office Visit Family Medicine Irvin Kramer MD [address] [place] [address] 04/19/2023 Office Visit Cardiology Laina Greer CRNP [address] [place] [address] Health Maintenance Due Date Last Done Comments [...] Additional history exists CKD HGB USE SMARTSET 15189 08/07/202308/06, 08/06/2022, 11/03/2021, Additional history exists Mammogram 08/08/2023 08/07/2022 Albumin/Creatinine Ratio 12/18/2023 023, 10/05/2020, 05/28/2019, Additional history exists CKD PHOS USE SMARTSET 15582 12/18/202311/28, 11/20/2020, 09/06/2017 DTaP,Tdap,and Td Vaccines (3 [...] as of this encounter Visit Diagnoses Diagnosis Iron deficiency anemia, unspecified iron deficiency anemia type documented in this encounter Advance Directives Latest Code Status on File Code Status Date Activated Date Inactivated Comments Full Code 02/15/2010 3:36 AM 02/16/2010 9:42 PM Thi s order reflects the patients wishes and were consensually agreed upon. Question Answer Comments Discussion of Advance Directives occurred with: Patient Care Teams Counsellors Relationship Specialty Start Date End Date Irvin Kramer MD [address] [place] [address] PCP - General Family Medicine 04/02/22 documented as of this encounter
--- OUTSIDE RECORDS SUMMARY | 2023-04-22 11:21 | External Medical Summary ---
Author Name Unknown Address Unknown Organization K01:[facility] [facility] - [address] [facility] [address] Laboratory Report Ordering Provider Test Date Status SELWYNMASHAMYLES 12/17/2022 15:25:16 Final Normal: <30 mg/g creatinine< br/>High: 30-300 mg/g creatinine
Very High: >300 mg/g creatinine
Nephrotic: >2200 mg/g creatinine Observation Date Value Abnormality Reference (Units) Status Albumin, Urine 12/17/2022 15:25:16 <1.20 (mg/dL) Final Creatinine, Urine 12/17/2022 15:25:16 29 (mg/dL) Final ALBUMIN/CREATININE RATIO, HIDE 12/17/2022 15:25:16 Uninterpretable Albumin/Creatinine ratio due to very low albumin and creatinine values. <30 (mg/g Creat) Final Performing Location [facility] [place] - [address] [place] [address]
--- OUTSIDE RECORDS SUMMARY | 2023-04-22 11:21 | External Medical Summary | Summary of Care ---
Author Name Unknown Organization [facility] Address [address] [place] [address] Phone [phone] Care Team Providers Care Hairspring Setter Name Role Phone Irvin Iverson MD Primary Care Provider + Reason for Visit * Reason Comments Follow Up Encounter Details Date Type Department Care Team Description 12/17/2022 Office Visit Cardiology, [facility] [address] [place] [address] Laina Greer CRNP [address] [place] [address] Chronic diastolic CHF (congestive heart failure) (HCC)*; Coronary artery disease involving [place] coronary artery of [place] heart without angina pectoris; Nonrheumatic aortic valve stenosis; HTN, goal below 140/90; Dyslipidemia, goal LDL below 70 Allergies Active Allergy Reactions Severity Noted Date Comments Azithromycin Other (Please comment) 03/28/2004 cramps Covid-19 Mrna Vacc (Moderna) 07/24/2021 Severe SOB/ hospitalized. Eggs Or Egg-Derived Products 05/25/2022 Other reaction(s): vomiting Ensure 02/10/2007 Vomiting, diarrhea Novocain 02/15/2010 hives [place] Extract 05/25/2022 Other reaction(s): Hives Tramadol Seizure [...] ns:HTN, goal below 140/80,Coronary artery disease involving [place] heart without angina pectoris, unspecified vessel or [...] Oral Tablet (pLAVix)Indication s:Coronary artery disease involving [place] heart without angina pectoris, unspecified vessel or [...] (Demadex)Indicatio ns:Chronic diastolic CHF (congestive heart failure) ([facility]),Coronary artery disease involving [place] coronary artery of [place] heart without angina pectoris,Nonrheuma tic aortic valve [...] A1c goal of less than 8.0% ([facility]) Take 1 Tablet by mouth in the [...] mgIndications:Surveillance for Depo-Provera contraception 150 mg IM [id number] 09/09/2019 Active documented as of this encounter [...] without hepatic coma 09/09/2017 Overview: 09/13 dx [facility]. Genotype 1A. Confirmed 2021. New since 2015. Hx shared needles. Coronary artery disease involving [place] heart without angina pectoris 12/19/2016 S/P coronary [...] right PDA with single ROJAS [facility]. EF stable 55-60%. Lung nodules inc9mm LLL. ?infection. Consider kailyn 1mo CT. 11/14 Dr Michael LEDESMA Trazodone 100mg? Suboxone Dr Max Garcia 06/17 incarcerated 01/14 admit [facility]/Ashkan ODvs suicide attempt. 02/13 d/c to [facility] in [place]. 09/13 ICU/intubated-fungal cicrqn-gmvaq-Lbxwjzh dubliniensis. , hand abscess dayna albicans MED [...] 06/23/2019 03/19/2022 Coronary artery disease invo lving [place] coronary artery of [place] heart without angina pectoris 06/23/2019 12/14/2021 Encounter for monitoring Suboxone maintenance th erapy 09/24/2018 12/14/2021 Polysubstance abuse 02/26/2018 03/19/2022 Overview: Fall 2017 rehab [place], etc will establish w/[facility] 02/2018 Suicide attempt by drug ingestion 02/20/2018 02/26/2018 Overview: gabapentin Seizure 09/09/2017 07/19/2020 Overview: 09/13 seizure noted. ?prior approx 5ya --placed on gabapentin Homeless 06/14/2017 11/27/2018 Tobacco abuse 04/15/2017 08/12/2017 Systolic murmur 03/04/2016 04/11/2021 Overview: 09/13 STEVEN [facility]-congential thickening Partial fusion aortica valve, trivial AI, [...] platelets elevated at 464, repeat CBC at [facility] 02/08: Repeat ultrasound is recommended in [...] not included. Cardiology Outpatient Visit 12/17/2022 Primary Rf Test Engineer: Dr. Gonzales Cardiac problems Premature atherosclerotic coronary [...] female presents after recent hospital admission to [facility]. Has "no-showed" to multiple appointments over the [...] 1 box 5 Blood Glucose Monitoring Suppl ([employer] VERIO FLEX SYSTEM) w/Device KIT Use as directed. Insulin Syringe-Needle U-100 27G X 1/2" 1 ML Use as directed. [employer]OUCH DELICA LANCETS 33G MISC Test as directed. [...] C without hepatic coma (HCC) 09/09/201709/13 dx [facility]. New since 2015. Hx shared needles. NEEDS repeat Hep B series. Chronic hypoxemic respiratory failure (HCC) 07/24/2021 Coronary artery disease involving [place] heart without angina pectoris 12/19/2016 DM type 2, not at goal (HCC) Dyslipidemia 01/18/2012 Encounter for monitoring Suboxone maintenance therapy 09/24/2018 Epilepsy without status epilepticus, not intractable (HCC) 09/09/2017 Heart failure, diastolic (HCC) 08/26/2020 Hepatitis C antibody positive in blood 09/09/201709/13 dx [facility] History of narcotic addiction (HCC) 01/20/2015 Homeless 06/14/2017 HTN, goal below 140/90 INFORMATION herniated disc Leukocytosis, unspecified 09/03/2014 chronic Mitral valve disorder Mitral Valve Prolapse with SBE S/P coronary artery stent placement 12/19/2016 TERMINATED MEDICATION USAGE AGREEMENT 01/20/2015 Tricuspid valve vegetation 03/20/2022 Type 2 diabetes mellitus with hemoglobin A1c goal of less than 8.0% ([facility]) 02/10/2009 lantus + metformin Past Surgical History: Procedure Laterality Date CARDIAC CATH-CARDIOLOGY ONLY 12/04/2022 mod-severe stenosis LAD + some other CAD. patent prior stent(s). Dr Avani Hay [facility] CARDIAC STENT PLACEMENT, ATHERECTOMY, 1 VESSEL 02/23/2020 PCI of mid right PDA with single ROJAS. [facility]. Dr. Glen Hay. CARPAL TUNNEL SURGERY 02/2009 R - by Dr Becerra DENTAL SURGERY PROCEDURE NEC Dental Surgery Procedure INCISION & DRAINAGE Right 09/04/2017 Dr Akil DOZIER-recurrent abscess. [facility] OR INCISION & DRAINAGE Left 09/11/2017 Office procedure - incision and drainage of abscess left wrist performed by Dr. Crystal Barnard 09/11/2017 LUMBAR DISC ARTHROPLAST,REVS,ADDL INTERSPCE 08/2011 [facility] LUMBAR PUNCTURE 07/16/2021 Dr Jaquez [facility]. encephalopathy. PATIENT HAS A CORONARY ARTERY STENT 2017 REMOVAL OF TONSILS, UNDER AGE 10 1990 Tonsils Removal,<10 Y/O REMOVE GALLBLADDER 1998 Cholecystectomy SPINAL FUSION, LUMBAR, COMBINED 11/2012 lumbar - [facility] THIGH OR KNEE SURGERY NEC 1994 Knee/Leg Other Procedures Unlisted TRANSESOPHAGEAL ECHO 09/18/[address] [facility] [address] Hall. Social History Tobacco Use Smoking status: Every Day Packs/day: 2.00 Years: 31.00 Pack years: 62.00 Types: Cigarettes Smokeless tobacco: Never Tobacco comments: started age 10- down to a few cigarettes a day Vaping Use Vaping Use: Never used Substance Use Topics Alcohol use: No Drug use: Not Currently Types: Cocaine, Methamphetamines, Oxycodone [facility], cocaine in past. pills in past. IV narcotics Review of patient's allergies indicates: Allergen Reactions Tramadol Seizure Azithromycin Other (Please comment) cramps Covid-19 Mrna Vacc (Moderna) Severe SOB/ hospitalized. Eggs Or Egg-Derived Products Other reaction(s): vomiting Ensure Vomiting, diarrhea Novocain hives Strawberries [[place] Extract] Other reaction(s): Hives Review of Systems: [...] Lab data/imaging study review: Cardiac cath at [facility] 12/10/2022 LM -normal caliber, no significant disease [...] widely patent. Echo 12/05/2022 Echocardiogram 07/11/2021 at [facility] LVEF 50-55% RV systolic function normal Left atrium and right atrium normal in size. Moderate aortic stenosis STEVEN 09/19/2020 at [facility] Trileaflet aortic valve, moderately calcified with moderate [...] single drug-eluting stent (2.25 x 12 mm Moon). Echo February 22, 2020 at [facility]: Normal LV size and systolic function with ejection fraction 65-70%. No wall motion abnormalities. Mild concentric LVH. Mild left atrial dilation. Echocardiogram February 09, 2020 at [facility]: LV systolic function is normal. Mild concentric [...] of flexeril. 2. Coronary artery disease involving [place] coronary artery of [place] heart without angina pectoris -Premature atherosclerotic coronary [...] mg daily. 2. Per Dr. Hay at [facility]: Medical management recommended of chronic mid LAD [...] This chart was completed in part utilizing [employer] Speech Voice Recognition Software. Grammatical errors, random [...] Visit Family Medicine Marielena Cline CRNP [address] [place] [address] Arrived 02/19/2023 Office Visit Neurology Gloria Florez PA-C [address] [place], [place] [address] [address] 02/20/2023 Office Visit Family Medicine Irvin Iverson MD [address] [place] [address] 04/19/2023 Office Visit Cardiology Laina Greer CRNP [address] [place] [address] Scheduled Orders Name Type Priority Associated Diagnoses Orde r Schedule BASIC METABOLIC PANEL Lab Routine Chronic diastolic CHF (congestive heart failure) (HCC) Coronary artery disease involving [place] coronary artery of [place] heart without angina pectoris Nonrheumatic aortic valve [...] Additional history exists CKD PHOS USE SMARTSET 02766 11/20/2021 11/20/2020, 0 09/06/2017 DISCUSS TOBACCO CESSATION (REFER TO SMARTSET #4729) 08/04/2022 08/04/2021, 08/28/2017 Influenza Vaccine (FLU shot) (#1) 2022 02/10/2021, 03/03/2020 HbA1c 2023 08/06/2022, 06/0 12/2020, 11/04/2019, Additional history exists GFR 02/21/2023 08/22/2022, 07/28, 11/03/2021, Additional history exists PAP SMEAR-ANNUAL AGES 18-100 07/26/2023 07/25/2022, 09/24/2017, 07/14/2014, Additional history exists CKD HGB USE SMARTSET 20235 08/07/202308/06, 08/06/2022, 11/03/2021, Additional history exists Mammogram [...] diastolic heart failure Coronary artery disease involving [place] coronary artery of [place] heart without angina pectoris Nonrheumatic aortic valve [...] Advance Directives occurred with: Patient Care Teams Hairspring Setter Relationship Specialty Start Date End Date Irvin Iverson MD [address] [place] [address] PCP - General Family Medicine 04/02/22 documented as of this encounter
--- OUTSIDE RECORDS SUMMARY | 2023-04-22 11:21 | External Medical Summary | Summary of Care ---
Author Name Unknown Organization [facility] Address [address] [place] [address] Phone [phone] Care Team Providers Care Service Counselor Name Role Phone Irvin Iversno MD Primary Care Provider + Reason for Visit * Reason Onset Date Comments transfer of records 12/28/2022 Encounter Details Date Type Department Care Team Description 12/28/2022 Telephone Neurology [facility] [place] [address] [place] [address] Gloria Florez PA-C [address] [place] [address] transfer of records Allergies Active Allergy Reactions Severity Noted Date Comments Azithromycin Other (Please comment) 03/28/2004 cramps Covid-19 Mrna Vacc (Moderna) 07/24/2021 Severe SOB/ hospitalized. Eggs Or Egg-Derived Products 05/25/2022 Other reaction(s): vomiting Ensure 02/10/2007 Vomiting, diarrhea Mushroom Extract Complex Itching 12/17/2022 Mushrooms Novocain 02/15/2010 hives [place] Extract 05/25/2022 Other reaction(s): Hives Tramadol Seizure High 09/09/2012 documented as of this encounter (statuses as of 01/01/2023) Medications Medication Sig Dispensed Refills Start Date [...] goal of less than 8.0% ([facility]) Test as directed. Pt test 2 [...] Patient not taking.Informant: Patient, Reported on 12/17/2022 Ferrous Sulfate 325 (65 Fe) MG Oral Tablet (Feosol)Indications :Iron deficiency anemia, unspecified iron deficiency anemia type Take by mouth 1 Tablet every other day . 45 Tablet 3 2 Active Additional Information Patient not taking.Informant: Patient, Reported on 12/17/2022 Atorvastatin Calcium 80 MG Oral Tablet (Lipitor)Indication s:HTN, goal below 140/80,Coronary artery disease involving squaxin heart without angina pectoris, unspecified vessel or [...] Patient not taking.Informant: Patient, Reported on 12/17/2022 Gabapentin 300 MG Oral Capsule (Neurontin) TAKE 1 CAPSULE BY MOUTH THREE TIMES A DAY 90 Capsule 1 3 Active Cyclobenzaprine HCl 10 MG Oral Tablet (Flexeril)Indicatio ns:Lumbar disc disease TAKE 1 TABLET BY MOUTH IN THE MORNING AND BEFORE BEDTIME 60 Tablet 0 3 Active Clopidogrel Bisulfate 75 MG Oral Tablet (pLAVix)Indications :Coronary artery disease involving squaxin heart without angina pectoris, unspecified vessel or lesion type,S/P coronary artery stent placement TAKE 1 TABLET BY MOUTH EVERY DAY 90 Tablet 1 3 Active Acetaminophen ER 650 MG Oral Tablet Extended Release (Tylenol 8 Hour)Indications:Ac quileute nonintractable headache, unspecified headache type Take 1 Tablet by mouth every 8 hours as needed for Pain, Moderate. 30 Tablet 0 3 Active Torsemide 20 MG Oral Tablet (Demadex)Indication s:Chronic diastolic CHF (congestive heart failure) (HCC),Coronary artery disease involving squaxin coronary artery of squaxin heart without angina pectoris,Nonrheumat ic aortic valve [...] for Dizziness. 90 Tablet 3 3 Active Hospital, Clinic, or Other Facility Administered Medication Ordered Dose Route Frequency Start Date End Date Status lidocaine 1 % inj 21 mgIndications:Cellulitis of arm, left,Abscess of multiple sites of upper arm 21 mg IJ Daily(AM) 09/20/2017 Active medroxyPROGESTERone acetate (DEPO-PROVERA) inj NORBERTO 150 mgIndications:Surveillance for Depo-Provera contraception 150 mg IM [id number] 09/09/2019 Active documented as of this encounter (statuses as of 01/01/2023) Active Problems Problem Noted Date Adrenal adenoma, right 08/10/2022 Overview: 11mm, CT scan 07/2022. Benign by imaging, needs hormonal w/u. Tricuspid valve vegetation 03/20/2022 Chronic kidney disease, stage 3a 022 Overview: Per CKD protocol Chronic hypoxemic respiratory failure 03 / Recurrent UTI 12/06/2020 Ureteral duplication, right 12/06/2020 Moderate recurrent major depression 07/30 Chronic diastolic heart failure 08/27/19 21 Diabetic peripheral neuropathy 9 Chronic hepatitis C without hepatic coma 09/09/2017 Overview: 09/13 dx [facility]. Genotype 1A. Confirmed 2021. New since 2015. Hx shared needles. Coronary artery disease involving squaxin heart without angina pectoris 12/19/2016 S/P coronary [...] PCI mid right PDA with single ROJAS [facility]. EF stable 55-60%. Lung nodules inc9mm LLL. ?infection. Consider kailyn 1mo CT. 11/14 Dr Michael VERGARA Trazodone 100mg? Suboxone Dr Max Garcia 06/17 incarcerated 01/14 admit [facility]/Ashkna ODvs suicide attempt. 02/[facility] [place]. 09/13 ICU/intubated-fungal osmmkw-ysuik-Ynfnnby dubliniensis. , hand abscess dayna albicans MED [...] as of this encounter (statuses as of 01/01/2023) Resolved Problems Problem Noted Date Resolved Date Hydronephrosis, right 12/06/2020 04/11/2021 Acute on chronic diastolic congestive heart fail ure 03/03/2020 08/26/2020 Major depressive disorder, recurrent, unspecifie d 12/30/2019 12/14/2021 Uncomplicated opioid dependence 06/23/2019 03/19/2022 Coronary artery disease invo lving squaxin coronary artery of squaxin heart without angina pectoris 06/23/2019 12/14/2021 Encounter for monitoring Suboxone maintenance th erapy 09/24/2018 12/14/2021 Polysubstance abuse 02/26/2018 03/19/2022 Overview: Fall 2017 rehab [place]-meth, etc will establish w/[facility] 02/2018 Suicide attempt [...] 03/11/2013 04/11/2021 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 The requestor would need to send release to them to get any records * Telephone Encounter - CHANDRIKA Hale - 12/28/2022 11:09 AM EDT Pt is requesting med recs from start of her injury, back a year be faxed to [facility]. Phis [phone] she does not have fax. Advised to ask med recs but pt insisted talk to you. Pt of [facility]. Transferred to med recs as well. documented in this encounter Plan of Treatment Upcoming Encounters Date Type Specialty Care Team Description 01/21/2023 Imaging Radiology 02/19/2023 Office Visit Neurology Gloria Florez PA-C [address] [facility], [place] [address] 02/20/2023 Office Visit Family Medicine Irvin Iverson MD [address] [place] [address] 04/19/2023 Office Visit Cardiology Laina Greer CRNP [address] [address] Health Maintenance Due Date Last Done Comments [...] 03/03/2020, 08/28/2017 *SPIROMETRY ONCE FOR ASTHMA-ADULT 08/06/2021 DISCUSS TOBACCO CESSATION (REFER TO SMARTSET #3291) 08/04/2022 08/04/2021, 08/28/2017 Influenza Vaccine (FLU shot) (#1) 2022 02/10/2021, 03/03/2020 HbA1c 2023 08/06/2022, 06/0 12/2020, 11/04/2019, Additional history exists GFR 06/19/2023 12/17/2022, 07/29, 08/06/2022, Additional history exists PAP SMEAR-ANNUAL AGES 18-100 07/26/2023 07/25/2022, 09/24/2017, 07/14/2014, Additional history exists CKD HGB USE SMARTSET 77201 08/07/202308/06, 08/06/2022, 11/03/2021, Additional history exists Mammogram 08/08/2023 08/07/2022 Albumin/Creatinine Ratio 12/18/2023 023, 10/05/2020, 05/28/2019, Additional history exists CKD PHOS USE SMARTSET 88470 12/18/202311/28, 11/20/2020, 09/06/2017 DTaP,Tdap,and Td Vaccines (3 [...] Advance Directives occurred with: Patient Care Teams Service Counselor Relationship Specialty Start Date End Date Irvin Iverson MD [address] [place] [address] PCP - General Family Medicine 04/02/22 documented as of this encounter
--- OUTSIDE RECORDS SUMMARY | 2023-04-22 11:21 | External Medical Summary ---
Author Name Unknown Address Unknown Organization K01:[facility] [address] [place] [address] Laboratory Report Ordering Provider Test Date Status JA SAMANO 12/17/2022 15:24:33 Final Observation Date Value Abnormality Reference (Units ) Status Phosphate 12/17/2022 15:24:33 4.5 2.5-4.8 (m g/dL) Final Performing Location [facility] - [address] [place] [address]
--- OUTSIDE RECORDS SUMMARY | 2023-04-22 11:21 | External Medical Summary | Summary of Care ---
Author Name Unknown Organization [facility] Address [address] [place] [address] Phone [phone] Care Team Providers Care Asbestos Wire Finisher Name Role Phone Irvin Iverson MD Primary Care Provider + Reason for Visit * Reason Comments Outpatient Testing Encounter Details Date Type Department Care Team Description 12/17/2022 Laboratory Laboratory, [facility] [address] [facility] [place] [address] [facility] [address] [place] [address] Type 2 diabetes mellitus with hemoglobin A1c goal of less than 8.0% ([facility]); Chronic kidney disease, stage 3a ([facility]); Chronic diastolic CHF (congestive heart failure) ([facility]); Coronary artery disease involving tribal coronary artery of tribal heart without angina pectoris; Nonrheumatic aortic valve stenosis; HTN, goal below 140/90; Dyslipidemia, goal LDL below 70; Elevated serum creatinine; HTN, goal below 140/80 Allergies Active Allergy Reactions Severity Noted Date Comments Azithromycin Other (Please comment) 03/28/2004 cramps Covid-19 Mrna Vacc (Moderna) 07/24/2021 Severe SOB/ hospitalized. Eggs Or Egg-Derived Products 05/25/2022 Other reaction(s): vomiting Ensure 02/10/2007 Vomiting, diarrhea Mushroom Extract Complex Itching 12/17/2022 Mushrooms Novocain 02/15/2010 hives [place] Extract 05/25/2022 Other reaction(s): Hives Tramadol Seizure [...] s:HTN, goal below 140/80,Coronary artery disease involving tribal heart without angina pectoris, unspecified vessel or [...] Oral Tablet (pLAVix)Indications :Coronary artery disease involving tribal heart without angina pectoris, unspecified vessel or lesion type,S/P coronary artery stent placement TAKE 1 TABLET BY MOUTH EVERY DAY 90 Tablet 1 3 Active Acetaminophen ER 650 MG Oral Tablet Extended Release (Tylenol 8 Hour)Indications:Ac comanche nonintractable headache, unspecified headache type Take 1 Tablet by mouth every 8 hours as needed for Pain, Moderate. 30 Tablet 0 3 Active Torsemide 20 MG Oral Tablet (Demadex)Indication s:Chronic diastolic CHF (congestive heart failure) (HCC),Coronary artery disease involving tribal coronary artery of tribal heart without angina pectoris,Nonrheumat ic aortic valve [...] mgIndications:Surveillance for Depo-Provera contraception 150 mg IM [id number] 09/09/2019 Active documented as of this encounter [...] Hx shared needles. Coronary artery disease involving tribal heart without angina pectoris 12/19/2016 S/P coronary [...] HOSPITAL/Ashkan ODvs suicide attempt. [facility] [place] 09/13 ICU/intubated-fungal sszlds-aziek-Zdcjrfd dubliniensis. , hand abscess dayna albicans MED [...] 06/23/2019 03/19/2022 Coronary artery disease invo lving tribal coronary artery of tribal heart without angina pectoris 06/23/2019 12/14/2021 Encounter for monitoring Suboxone maintenance th erapy 09/24/2018 12/14/2021 Polysubstance abuse 02/26/2018 03/19/2022 Overview: Fall 2017 rehab [place]-meth, etc will establish w/[facility] 02/2018 Suicide [...] 03/11/2013 04/11/2021 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 03/31/2012 015 [facility] current use of anticoagulant therapy 0 08/07/2010 12/04/2011 Overview: ICD-10 update of inactive term Anticoagulation management encounter 08/07/2010 12/04/2011 ADVANCE DIRECTIVE INFORMATION 03/02/2010 Overview: No, Advance Directive brochure offered , patient declined. Cervical incompetence, antepartum 03/02/2010 04/11/2016 Enterococcus UTI 02/16/2010 12/04/2011 Other pulmonary embolism and infarction 02/16/20 10 07/29/2014 Overview: On lovenox 1 ml q 12 hr Supervision of high-risk of young myriam flahertyavida 02/13/2010 08/04/2012 Overview: H/o loss at 20-22wks due to ? Incompetent cervix in 1997-no records on file, needs cervical length check 01/11: WBC elevated at 23; platelets elevated at 464, [facility] Repeat ultrasound is recommended [...] Office Visit Neurology Gloria Florez PA-C [address] [place] [address] 02/20/2023 Office Visit Family Medicine Irvin Iverson MD [address] [place] [address] 04/19/2023 Office Visit Cardiology Laina Greer CRNP [address] [place] [address] Pending Results Name Type Priority Associated Diagnoses Date /Time VITAMIN B12 Lab Routine Type 2 diabetes mellitus with hemoglobin A1c goal of less than 8.0% ([facility]) 12/17/2022 3:24 PM EDT PHOSPHORUS Lab Routine Chronic kidney disease, stage 3a ([facility]) 12/17/2022 3:24 PM EDT BASIC METABOLIC PANEL Lab Routine Chronic diastolic CHF (congestive heart failure) ([facility]) Coronary artery disease involving tribal coronary artery of tribal heart without angina pectoris Nonrheumatic aortic valve stenosis HTN, goal below 140/90 Dyslipidemia, goal LDL below 70 12/17/2022 3:24 PM EDT URINALYSIS WITH MICROSCOPIC EXAM Lab Routine Elevated serum creatinine 12/17/2022 3:25 PM EDT ALBUMIN / CREATININE RATIO, URINE Lab Routine HTN, goal below 140/80 12/17/2022 3:25 PM EDT Health Maintenance Due Date Last Done Comments [...] Additional history exists CKD PHOS USE SMARTSET 25265 11/20/2021 11/20/2020, 0 09/06/2017 DISCUSS TOBACCO CESSATION (REFER TO SMARTSET #3291) 08/04/2022 08/04/2021, 08/28/2017 Influenza Vaccine (FLU shot) (#1) 2022 02/10/2021, 03/03/2020 HbA1c 2023 08/06/2022, 06/0 12/2020, 11/04/2019, Additional history exists GFR 02/21/2023 08/22/2022, 04/, 11/03/2021, Additional history exists PAP SMEAR-ANNUAL AGES 18-100 07/26/2023 07/25/2022, 09/24/2017, 07/14/2014, Additional history exists CKD HGB USE SMARTSET 33494 08/07/202308/06, 08/06/2022, 11/03/2021, Additional history exists Mammogram [...] A1c goal of less than 8.0% (HCC) Chronic kidney disease, stage 3a (HCC) Chronic diastolic CHF (congestive heart failure) (HCC) Chronic diastolic heart failure Coronary artery disease involving tribal coronary artery of tribal heart without angina pectoris Nonrheumatic aortic valve stenosis Aortic valve disorders HTN, goal below 140/90 Unspecified essential hypertension Dyslipidemia, goal LDL below 70 Other and unspecified hyperlipidemia Elevated serum creatinine Other nonspecific findings on examination of blood HTN, goal below 140/80 Unspecified essential hypertension documented in this encounter Advance Directives Latest Code Status on File Code Status Date Activated Date Inactivated Comments Full Code 02/15/2010 3:36 AM 02/16/2010 9:42 PM Thi s order reflects the patients wishes and were consensually agreed upon. Question Answer Comments Discussion of Advance Directives occurred with: Patient Care Teams Asbestos Wire Finisher Relationship Specialty Start Date End Date Irvin Iverson MD [address] [place] [address] PCP - General Family Medicine 04/02/22 documented as of this encounter
--- OUTSIDE RECORDS SUMMARY | 2023-04-22 11:21 | External Medical Summary | Summary of Care ---
Author Name Unknown Organization [facility] Address [address] [place] [address] Phone [phone] Care Team Providers Care Tire Fabric Inspector Name Role Phone Irvin Iverson MD Primary Care Provider + Reason for Visit * Reason Comments Follow Up Encounter Details Date Type Department Care Team Description 12/17/2022 Office Visit Cardiology, [facility] [address] [place] [address] Laina Greer CRNP [address] [place] [address] Chronic diastolic CHF (congestive heart failure) (HCC)*; Coronary artery disease involving [place] coronary artery of [place] heart without angina pectoris; Nonrheumatic aortic valve stenosis; HTN, goal below 140/90; Dyslipidemia, goal LDL below 70 Allergies Active Allergy Reactions Severity Noted Date Comments Azithromycin Other (Please comment) 03/28/2004 cramps Covid-19 Mrna Vacc (Moderna) 07/24/2021 Severe SOB/ hospitalized. Eggs Or Egg-Derived Products 05/25/2022 Other reaction(s): vomiting Ensure 02/10/2007 Vomiting, diarrhea Novocain 02/15/2010 hives Cardwell Extract 05/25/2022 Other reaction(s): Hives Tramadol Seizure [...] ns:HTN, goal below 140/80,Coronary artery disease involving [place] heart without angina pectoris, unspecified vessel or [...] Oral Tablet (pLAVix)Indication s:Coronary artery disease involving [place] heart without angina pectoris, unspecified vessel or [...] (Demadex)Indicatio ns:Chronic diastolic CHF (congestive heart failure) ([facility]),Coronary artery disease involving [place] coronary artery of [place] heart without angina pectoris,Nonrheuma tic aortic valve [...] hemoglobin A1c goal of less than 8.0% ([facility]) Take 1 Tablet by mouth in [...] mgIndications:Surveillance for Depo-Provera contraception 150 mg IM [id number] 09/09/2019 Active documented as of this encounter [...] without hepatic coma 09/09/2017 Overview: 09/13 dx [facility]. Genotype 1A. Confirmed 2021. New since 2015. Hx shared needles. Coronary artery disease involving [place] heart without angina pectoris 12/19/2016 S/P coronary [...] PCI mid right PDA with single ROJAS [facility]. EF stable 55-60%. Lung nodules inc9mm LLL. ?infection. Consider kailyn 1mo CT. 11/14 Dr Michael LEDESMA Trazodone 100mg? Suboxone Dr Max Garcia 06/17 incarcerated 01/14 admit [facility]/Ashkan ODvs suicide attempt. 02/13 d/c to [facility] in [place]. 09/13 ICU/intubated-fungal dgzwcn-xnrea-Ltrzxid dubliniensis. , hand abscess dayna albicans MED [...] 06/23/2019 03/19/2022 Coronary artery disease invo lving [place] coronary artery of [place] heart without angina pectoris 06/23/2019 12/14/2021 Encounter for monitoring Suboxone maintenance th erapy 09/24/2018 12/14/2021 Polysubstance abuse 02/26/2018 03/19/2022 Overview: Fall 2017 rehab [facility], etc will establish w/[facility] 02/2018 Suicide attempt by drug ingestion 02/20/2018 02/26/2018 Overview: gabapentin Seizure 09/09/2017 07/19/2020 Overview: 09/13 seizure noted. ?prior approx 5ya --placed on gabapentin Homeless 06/14/2017 11/27/2018 Tobacco abuse 04/15/2017 08/12/2017 Systolic murmur 03/04/2016 04/11/2021 Overview: 09/13 STEVEN [facility]-congential thickening Partial fusion aortica valve, trivial AI, no vegetation. 2012 TTE--mild-mod AR, ?bicuspid. Diverticulosis of large intestine without hemorr quyen 02/15/2016 01/18/2017 Leukocytosis 09/03/2014 12/14/2021 Overview: Chronic, s/p bone marrow biopsy Sciatica 03/11/2013 04/11/2021 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 03/31/2012 015 long-term current use of anticoagulant therapy [...] platelets elevated at 464, repeat CBC at [facility] 02/08: Repeat ultrasound is recommended in [...] not included. Cardiology Outpatient Visit 12/17/2022 Primary Pot Tender: Dr. Gonzales Cardiac problems Premature atherosclerotic coronary [...] female presents after recent hospital admission to [facility]. Has "no-showed" to multiple appointments over the [...] 1 box 5 Blood Glucose Monitoring Suppl ([employer] VERIO FLEX SYSTEM) w/Device KIT Use as directed. Insulin Syringe-Needle U-100 27G X 1/2" 1 ML Use as directed. HstryTOUCH DELICA LANCETS 33G MISC Test as directed. 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 New since 2015. Hx shared needles. NEEDS repeat Hep B series. Chronic hypoxemic respiratory failure (HCC) 07/24/2021 Coronary artery disease involving [place] heart without angina pectoris 12/19/2016 DM type 2, not at goal (HCC) Dyslipidemia 01/18/2012 Encounter for monitoring Suboxone maintenance therapy 09/24/2018 Epilepsy without status epilepticus, not intractable (HCC) 09/09/2017 Heart failure, diastolic (HCC) 08/26/2020 Hepatitis C antibody positive in blood 09/09/201709/13 dx [facility] History of narcotic addiction (HCC) 01/20/2015 Homeless 06/14/2017 HTN, goal below 140/90 INFORMATION herniated disc Leukocytosis, unspecified 09/03/2014 chronic Mitral valve disorder Mitral Valve Prolapse with SBE S/P coronary artery stent placement 12/19/2016 TERMINATED MEDICATION USAGE AGREEMENT 01/20/2015 Tricuspid valve vegetation 03/20/2022 Type 2 diabetes mellitus with hemoglobin A1c goal of less than 8.0% ([facility]) 02/10/2009 lantus + metformin Past Surgical History: Procedure Laterality Date CARDIAC CATH-CARDIOLOGY ONLY 12/04/2022 mod-severe stenosis LAD + some other CAD. patent prior stent(s). Dr Avani Hay [facility] CARDIAC STENT PLACEMENT, ATHERECTOMY, 1 VESSEL 02/23/2020 PCI of mid right PDA with single ROJAS. [facility]. Dr. Glen Hay. CARPAL TUNNEL SURGERY 02/2009 R - by Dr Becerra DENTAL SURGERY PROCEDURE NEC Dental Surgery Procedure INCISION & DRAINAGE Right 09/04/2017 Dr Akil DOZIER-recurrent abscess. [facility] OR INCISION & DRAINAGE Left 09/11/2017 Office procedure - incision and drainage of abscess left wrist performed by Dr. Crystal Barnard 09/11/2017 LUMBAR DISC ARTHROPLAST,REVS,ADDL INTERSPCE 08/2011 [facility] LUMBAR PUNCTURE 07/16/2021 Dr Jaquez [facility]. encephalopathy. PATIENT HAS A CORONARY ARTERY STENT 2017 REMOVAL OF TONSILS, UNDER AGE 10 1990 Tonsils Removal,<10 Y/O REMOVE GALLBLADDER 1998 Cholecystectomy SPINAL FUSION, LUMBAR, COMBINED 11/2012 lumbar - [facility] THIGH OR KNEE SURGERY NEC 1994 Knee/Leg Other Procedures Unlisted TRANSESOPHAGEAL ECHO 09/18/[address] [facility] [address] Hall. Social History Tobacco Use Smoking status: Every Day Packs/day: 2.00 Years: 31.00 Pack years: 62.00 Types: Cigarettes Smokeless tobacco: Never Tobacco comments: started age 10- down to a few cigarettes a day Vaping Use Vaping Use: Never used Substance Use Topics Alcohol use: No Drug use: Not Currently Types: Cocaine, Methamphetamines, Oxycodone Comment[facility], cocaine in past. pills in past. IV narcotics Review of patient's allergies indicates: Allergen Reactions Tramadol Seizure Azithromycin Other (Please comment) cramps Covid-19 Mrna Vacc (Moderna) Severe SOB/ hospitalized. Eggs Or Egg-Derived Products Other reaction(s): vomiting Ensure Vomiting, diarrhea Novocain hives Strawberries [Cardwell Extract] Other reaction(s): Hives Review of Systems: [...] Lab data/imaging study review: Cardiac cath at [facility] 12/10/2022 LM -normal caliber, no significant disease [...] widely patent. Echo 12/05/2022 Echocardiogram 07/11/2021 at [facility] LVEF 50-55% RV systolic function normal Left atrium and right atrium normal in size. Moderate aortic stenosis STEVEN 09/19/2020 at [facility] Trileaflet aortic valve, moderately calcified with moderate [...] single drug-eluting stent (2.25 x 12 mm Coram). Echo February 22, 2020 at [facility]: Normal LV size and systolic function with ejection fraction 65-70%. No wall motion abnormalities. Mild concentric LVH. Mild left atrial dilation. Echocardiogram February 09, 2020 at [facility]: LV systolic function is normal. [...] of flexeril. 2. Coronary artery disease involving [place] coronary artery of [place] heart without angina pectoris -Premature atherosclerotic coronary [...] mg daily. 2. Per Dr. Hay at [facility]: Medical management recommended of chronic mid LAD [...] This chart was completed in part utilizing [employer] Speech Voice Recognition Software. Grammatical errors, random [...] comprehension of instructions. documented in this encounter Plan of Treatment Upcoming Encounters Date Type Specialty Care Team Description 12/17/2022 Office Visit Family Medicine Marielena Cline CRNP [address] [place] [id number] Arrived 02/19/2023 Office Visit Neurology Gloria Florez PA-C [address] [place] [id number] 02/20/2023 Office Visit Family Medicine Irvin Iverson MD [address] [place] [address] 04/19/2023 Office Visit Cardiology Laina Greer CRNP [address] [place] [address] Scheduled Orders Name Type Priority Associated Diagnoses Orde r Schedule BASIC METABOLIC PANEL Lab Routine Chronic diastolic CHF (congestive heart failure) (HCC) Coronary artery disease involving [place] coronary artery of [place] heart without angina pectoris Nonrheumatic aortic valve stenosis HTN, goal below 140/90 Dyslipidemia, goal LDL below 70 Expected: 12/17/2022, Expires: 12/18/2023 Health Maintenance Due Date Last Done Comments [...] Additional history exists CKD PHOS USE SMARTSET 72536 11/20/2021 11/20/2020, 0 09/06/2017 DISCUSS TOBACCO CESSATION (REFER TO SMARTSET #4099) 08/04/2022 08/04/2021, 08/28/2017 Influenza Vaccine (FLU shot) (#1) 2022 02/10/2021, 03/03/2020 HbA1c 2023 08/06/2022, 06/0 12/2020, 11/04/2019, Additional history exists GFR 02/21/2023 08/22/2022, 04/1 , 11/03/2021, Additional history exists PAP SMEAR-ANNUAL AGES 18-100 07/26/2023 07/25/2022, 09/24/2017, 07/14/2014, Additional history exists CKD HGB USE SMARTSET 96270 08/07/202308/06, 08/06/2022, 11/03/2021, Additional history exists Mammogram [...] diastolic heart failure Coronary artery disease involving [place] coronary artery of [place] heart without angina pectoris Nonrheumatic aortic valve [...] Advance Directives occurred with: Patient Care Teams Tire Fabric Inspector Relationship Specialty Start Date End Date Irvin Iverson MD [address] [place] [address] PCP - General Family Medicine 04/02/22 documented as of this encounter
--- OUTSIDE RECORDS SUMMARY | 2023-04-22 11:21 | External Medical Summary | Summary of Care ---
Author Name Unknown Organization [facility] Address [address] [place] [address] Phone [phone] Care Team Providers Care Hand Tapper Name Role Phone Irvin Iverson MD Primary Care Provider + Reason for Visit * Reason Comments Hospital Follow-Up Sepsis, pneumonia - patient states her back and legs are hurting today Runny Nose Sinus Problem pain Cough Slightly productive for white mucous - started this past Saturday Encounter Details Date Type Department Care Team Description 12/17/2022 Office Visit Family Practice [facility] [address] [place] [address] Marielena Cline CRNP [address] [place] [address] Hospital discharge follow-up*; Sinus pressure; Vertigo; Decreased GFR; Pneumonia due to infectious organism, unspecified laterality, unspecified part of lung; Generalized weakness; Type 2 diabetes mellitus with hemoglobin A1c goal of less than 8.0% ([facility]); Coronary artery disease involving [place] heart without angina pectoris, unspecified vessel or lesion type; HTN, goal below 140/80; Tobacco use Allergies Active Allergy Reactions Severity Noted Date Comments Azithromycin Other (Please comment) 03/28/2004 cramps Covid-19 Mrna Vacc (Moderna) 07/24/2021 Severe SOB/ hospitalized. Eggs Or Egg-Derived Products 05/25/2022 Other reaction(s): vomiting Ensure 02/10/2007 Vomiting, diarrhea Mushroom Extract Complex Itching 12/17/2022 Mushrooms Novocain 02/15/2010 hives [place] Extract 05/25/2022 Other reaction(s): Hives Tramadol Seizure High 09/09/2012 documented as of this encounter (statuses as of 12/18/2022) Medications Medication Sig Dispensed Refills Start Date End Date Status LANCET DEVICE MISCIndications:DM type 2, not at goal (HCC) use as directed - for One Touch Ultra 1 box 5 0 Active Additional Information Patient not taking.Informant: Patient, Reported on 12/17/2022 Blood Glucose Monitoring Suppl (Buyou VERIO FLEX SYSTEM) w/Device KIT Use as [...] of water or juice. 507 g 5 09/22/202 1 Active Albuterol Sulfate (2.5 MG/3ML) 0.083% [...] ns:HTN, goal below 140/80,Coronary artery disease involving [place] heart without angina pectoris, unspecified vessel or [...] Oral Tablet (pLAVix)Indication s:Coronary artery disease involving [place] heart without angina pectoris, unspecified vessel or [...] (congestive heart failure) (HCC),Coronary artery disease involving [place] coronary artery of [place] heart without angina pectoris,Nonrheuma tic aortic valve [...] for Dizziness. 90 Tablet 3 3 Active Meclizine HCl 25 MG Oral Tablet (Antivert)Indicati ons:Vertigo TAKE 1 TABLET BY MOUTH THREE TIMES A DAY NEEDED FOR DIZZINESS 90 Tablet 3 2 12/18/19 23 Discontinu ed(Refill) Hospital, Clinic, or Other Facility Administered Medication Ordered Dose Route Frequency Start Date End Date Status lidocaine 1 % inj 21 mgIndications:Cellulitis of arm, left,Abscess of multiple sites of upper arm 21 mg IJ Daily(AM) 09/20/2017 Active medroxyPROGESTERone acetate (DEPO-PROVERA) inj NORBERTO 150 mgIndications:Surveillance for Depo-Provera contraception 150 mg IM [id number] 09/09/2019 Active documented as of this encounter (statuses as of 12/18/2022) Active Problems Problem Noted Date Adrenal adenoma, [...] hepatic coma 09/09/2017 Overview: 09/13 dx [facility]. Genotype 1A. Confirmed 2021. New since 2015. Hx shared needles. Coronary artery disease involving [place] heart without angina pectoris 12/19/2016 S/P coronary [...] PCI mid right PDA with single ROJAS [place]. EF stable 55-60%. Lung nodules inc9mm LLL. ?infection. Consider kailyn 1mo CT. 11/14 Dr Michael VERGARA Trazodone 100mg? Suboxone Dr Max Garcia 06/17 incarcerated 01/14 admit [facility]/Ashkan ODvs suicide attempt. 02/13 d/c to [facility] in [place]. 09/13 ICU/intubated-fungal hzlkcm-bkblu-Pdnbujx dubliniensis. , hand abscess dayna albicans MED [...] as of this encounter (statuses as of 12/18/2022) Resolved Problems Problem Noted Date Resolved Date Hydronephrosis, right 12/06/2020 04/11/2021 Acute on chronic diastolic congestive heart fail ure 03/03/2020 08/26/2020 Major depressive disorder, recurrent, unspecifie d 12/30/2019 12/14/2021 Uncomplicated opioid dependence 06/23/2019 03/19/2022 Coronary artery disease invo lving [place] coronary artery of [place] heart without angina pectoris 06/23/2019 12/14/2021 Encounter for monitoring Suboxone maintenance th erapy 09/24/2018 12/14/2021 Polysubstance abuse 02/26/2018 03/19/2022 Overview: Fall 2017 rehab [facility] etc will establish w/[facility] 02/2018 Suicide attempt by drug ingestion 02/20/2018 02/26/2018 Overview: gabapentin Seizure 09/09/2017 07/19/2020 Overview: 09/13 seizure noted. ?prior approx 5ya --placed on gabapentin Homeless 06/14/2017 11/27/2018 Tobacco abuse 04/15/2017 08/12/2017 Systolic murmur 03/04/2016 04/11/2021 Overview: 09/13 STEVEN [facility]-congential thickening Partial fusion aortica valve, trivial AI, no vegetation. 2012 TTE--mild-mod AR, ?bicuspid. Diverticulosis of large intestine without hemorr quyen 02/15/2016 01/18/2017 Leukocytosis 09/03/2014 12/14/2021 Overview: Chronic, s/p bone marrow biopsy Sciatica 03/11/2013 04/11/2021 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 03/31/2012 015 FDC current use of anticoagulant therapy 0 08/07/2010 12/04/2011 Overview: ICD-10 update of inactive term Anticoagulation management encounter 08/07/2010 12/04/2011 ADVANCE DIRECTIVE INFORMATION 03/02/2010 Overview: No, Advance Directive brochure offered , patient declined. Cervical incompetence, antepartum 03/02/2010 04/11/2016 Enterococcus UTI 02/16/2010 12/04/2011 Other pulmonary embolism and infarction 02/16/20 10 07/29/2014 Overview: On lovenox 1 ml q 12 hr Supervision of high-risk of young myriam reynodlavishayne 02/13/2010 08/04/2012 Overview: H/o loss at 20-22wks [...] chromosome abnormality. Supervision of high-risk of swathi miguel igravida 01/11/2010 02/08/2010 Overview: H/o loss at [...] nebulizer prn, last used three weeks ago Ynu peak flow not doing at this time [...] DM type 2, not at goal 09/01/2004 10//200 9 Overview: Modified per Diabetes protocol #14. [...] as of this encounter (statuses as of 12/18/2022) Immunizations Name Administration Dates Next Due COVID-19 [...] Tobacco: Never Tobacco Cessation:Ready to Q uit: Yes; Counseling Given: Yes Comments:started age 10- down to a few [...] Sign Reading Time Taken Comments Blood Pressure 94/56 12/17/2022 2:33 PM EDT Pulse 80 12/17/2022 2:33 PM EDT Temperature 36.6 C (97.8 F) 12/17/2022 2:33 PM ED T Respiratory Rate 16 12/17/2022 2:33 PM EDT Oxygen Saturation 99% 12/17/2022 2:33 PM EDT room air Inhaled Oxygen Concentration - - Weight 80.8 kg (178 lb 3.2 oz) 12/17/2022 2:33 P M EDT Height - - Body Mass Index 30.59 08/22/2022 10:02 AM EDT documented in this encounter Progress Notes * JOSETTE Bloom - 12/17/2022 2:46 PM EDT Images from the original note were not included. Follow up Family Medicine Visit History of Present Illness Fritz Gonzalez is a very pleasant 42 year old female with complicated PMH listed below presenting with hospital follow up. Septic shock due to pneumonia, required IV antibiotics, steroids, neb, intubation, and she was extubated on 12/07. Increased trop trends led her to cardiac cath, showed chronic mid LAD stenosis and moderate aortic stenosis. Her creatinine was increase to 1.68 after contrast. She feels much better than she was in the hospital. Denies SOB, chest pain, lightheadedness. She was holding on an empty wheelchair to assist with her gait and balance Requesting scooter that can be fold her generalized weakness. Sinus pressure past 2 days. No fever or chills. 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 2017-meth, cocaine in past. pills in past. IV narcotics Sexual activity: Not Currently Partners: Male control/protection: Injection Comment: 2019 new BF. live together. son Kirk w/dad's custody Other Topics Concern [...] Self-Exams Yes Comment: breast Social History Narrative 2018 incarcerated until 04/16/19 then did 1mo inpatient rehab at [facility]. 2019--outpatient rehab [facility], [facility], peer to peer w/Selena christina. 10/14 3 y probation for theft 05/2017-homeless since brother . Son in his dad's custody. CYS involved. 1 dog anjum No mold Social Determinants of Health Financial Resource Strain: Not on file Food Insecurity: Not on file Transportation Needs: Not on file Physical Activity: Not on file Stress: Not on file Social Connections: Not on file Intimate Partner Violence: Not on file Housing Stability: Not on file PMH: Past Medical History: Diagnosis Date Adrenal adenoma, right 08/10/2022 Cervical incompetence, antepartum 03/02/2010 Chronic hepatitis C without hepatic coma (HCC) 09/09/201709/13 dx [facility]. New since 2015. Hx shared needles. NEEDS repeat Hep B series. Chronic hypoxemic respiratory failure (HCC) 07/24/2021 Coronary artery disease involving [place] heart without angina pectoris 12/19/2016 DM type 2, not at goal (HCC) Dyslipidemia 01/18/2012 Encounter for monitoring Suboxone maintenance therapy 09/24/2018 Epilepsy without status epilepticus, not intractable (HCC) 09/09/2017 Heart failure, diastolic (HCC) 08/26/2020 Hepatitis C antibody positive in blood 09/09/201709/13 dx [facility] History of narcotic addiction (HCC) 01/20/2015 Homeless 06/14/2017 HTN, goal below 140/90 INFORMATION herniated disc Leukocytosis, unspecified 09/03/2014 chronic Mitral valve disorder Mitral Valve Prolapse with SBE S/P coronary artery stent placement 12/19/2016 TERMINATED MEDICATION USAGE AGREEMENT 01/20/2015 Tricuspid valve vegetation 03/20/2022 Type 2 diabetes mellitus with hemoglobin A1c goal of less than 8.0% ([facility]) 02/10/2009 lantus + metformin Past Surgical History: Procedure Laterality Date CARDIAC CATH-CARDIOLOGY ONLY 12/04/2022 mod-severe stenosis LAD + some other CAD. patent prior stent(s). Dr Avani Hay [facility] CARDIAC STENT PLACEMENT, ATHERECTOMY, 1 VESSEL 02/23/2020 PCI of mid right PDA with single ROJAS. [facility]. Dr. Glen Hay. CARPAL TUNNEL SURGERY 02/2009 R - by Dr Becerra DENTAL SURGERY PROCEDURE NEC Dental Surgery Procedure INCISION & DRAINAGE Right 09/04/2017 Dr Akil DOZIER-recurrent abscess. [facility] OR INCISION & DRAINAGE Left 09/11/2017 Office procedure - incision and drainage of abscess left wrist performed by Dr. Crystal Barnard 09/11/2017 LUMBAR DISC ARTHROPLAST,REVS,ADDL INTERSPCE 08/2011 [facility] LUMBAR PUNCTURE 07/16/2021 Dr Jaquez [facility]. encephalopathy. PATIENT HAS A CORONARY ARTERY STENT 2016 REMOVAL OF TONSILS, UNDER AGE 10 1990 Tonsils Removal,<12 Y/O REMOVE GALLBLADDER 1998 Cholecystectomy SPINAL FUSION, LUMBAR, COMBINED 11/2012 lumbar - [facility] THIGH OR KNEE SURGERY NEC 1994 Knee/Leg Other Procedures Unlisted TRANSESOPHAGEAL ECHO 09/18/2020 [facility] Dr Hall. Outpatient Medications Marked as Taking for the 12/17/22 encounter (Office Visit) with JOSETTE Bloom Medication Sig Acetaminophen ER 650 MG Oral Tablet Extended Release (Tylenol 8 Hour) Take 1 Tablet by mouth every 8 hours as needed for Pain, Moderate. Clopidogrel Bisulfate 75 MG Oral Tablet (pLAVix) TAKE 1 TABLET BY MOUTH EVERY DAY Cyclobenzaprine HCl 10 MG Oral Tablet (Flexeril) TAKE 1 TABLET BY MOUTH IN THE MORNING AND BEFORE BEDTIME Gabapentin 300 MG Oral Capsule (Neurontin) TAKE 1 CAPSULE BY MOUTH THREE TIMES A DAY Lisinopril 5 MG Oral Tablet (Prinivil) TAKE 1 TABLET BY MOUTH EVERY DAY IN THE MORNING Aspirin Low Dose 81 MG Oral Tablet Delayed Release (aspirin enteric coated) TAKE 1 TABLET BY MOUTH EVERY DAY Famotidine 20 MG Oral Tablet (Pepcid) TAKE 1 TABLET BY MOUTH 2 TIMES A DAY NEEDED FOR HEARTBURN. Fluticasone Furoate-Vilanterol 200-25 MCG/ACT Inhalation Aerosol Powder Breath Activated (BREO ellipta) Inhale 1 Puff by mouth in the morning. Please rinse mouth out after using.. ProAir HFA 108 (90 Base) MCG/ACT Inhalation Aerosol Solution Inhale 2 Puffs by mouth every 4 hours as needed for Cough or Wheezing. Metoprolol Succinate ER 25 MG Oral Tablet Extended Release 24 Hour (toPROL XL) Take 1 Tablet by mouth in the morning. Potassium Chloride Yvonne ER 20 MEQ Oral Tablet Extended Release (Klor-Con M20) Take 1 Tablet by mouth in the morning. Atorvastatin Calcium 80 MG Oral Tablet (Lipitor) Take 1 Tablet by mouth in the morning. busPIRone HCl 15 MG Oral Tablet (Buspar) Take 1 Tablet by mouth in the morning and 1 Tablet before bedtime. Escitalopram Oxalate 10 MG Oral Tablet (Lexapro) Take 1 Tablet by mouth in the morning. Escitalopram Oxalate 20 MG Oral Tablet (Lexapro) Take 1 Tablet by mouth in the morning. levETIRAcetam 500 MG Oral Tablet (Keppra) Take 1 Tablet by mouth in the morning and 1 Tablet beforebedtime. traZODone HCl 50 MG Oral Tablet (Desyrel) Take 1.5 Tablets by mouth at bedtime. oxygen IN GAS Use as directed 2 L/min(Oxygen) as needed (via nasal cannula with exertion). titrate to off if SpO2 90-94%. 3 LPM via nasal cannula at bedtime and with all sleep. Meclizine HCl 25 MG Oral Tablet (Antivert) TAKE 1 TABLET BY MOUTH THREE TIMES A DAY NEEDED FOR DIZZINESS Albuterol Sulfate (2.5 MG/3ML) 0.083% Inhalation Nebulization Solution (Proventil) Inhale 1 Vial via nebulizer every 4 hours as needed for Wheezing. Polyethylene Glycol 3350 17 GM/SCOOP Oral Powder (MiraLax) Take 17 g by mouth as needed for Constipation. Dissolve one heaping tablespoon in 8 ounces of water or juice. Loratadine 10 MG Oral Capsule Take 1 Capsule by mouth daily as needed. Omeprazole 20 MG Oral Capsule Delayed Release Take 1 Capsule by mouth in the morning. Buprenorphine HCl-Naloxone HCl 8-2 MG Sublingual Tablet Sublingual (Suboxone) Place 1.5 Tablets under the tongue in the morning. glipiZIDE 10 MG Oral Tablet (Glucotrol) TAKE 1 TABLET BY MOUTH EVERY DAY TAKE 30 MINUTES BEFORE DINNER Nitroglycerin 0.4 MG Sublingual Tablet Sublingual (Nitrostat) Place 1 Tab under the tongue every 5 minutes as needed for Pain, Chest. Max dose 3 tablets in 15 minutes Current Facility-Administered Medications for the 12/17/22 encounter (Office Visit) with JOSETTE Bloom Medication medroxyPROGESTERone acetate (DEPO-PROVERA) inj NORBERTO 150 mg lidocaine 1 % inj 21 mg Review of patient's allergies indicates: Allergen Reactions Tramadol Seizure Azithromycin Other (Please comment) cramps Covid-19 Mrna Vacc (Moderna) Severe SOB/ hospitalized. Eggs Or Egg-Derived Products Other reaction(s): vomiting Ensure Vomiting, diarrhea Mushroom Extract Complex Itching Mushrooms Novocain hives Strawberries [[place] Extract] Other reaction(s): Hives Most Recent Immunizations Administered Date(s) Administered COVID-19 mRNA, LNP-s, No Preserve, 2-Dose Series (Moderna) 09/16/2020 Depo-Provera 07/01/2014 Hepatitis B, 20+ yrs 08/26/2018 Pneumococcal Polysaccharide PPV23 (Pneumovax) 11/28/2005 Seasonal Influenza, PF, 6 mons & Above, IM , (Flulaval) 02/10/2021 TDAP (age 10 and older)(Boostrix) 08/28/2017 TDAP (age 11 and older)(Adacel) 02/10/2007 Review of Systems: Physical Exam BP 94/56 (BP Site: Left Arm, BP Position: Sitting, BP Cuff Size: Regular) | Pulse 80 | Temp 36.6 C (97.8 F) (Tympanic) | Resp 16 | Wt 80.8 kg (178 lb 3.2 oz) | SpO2 99% Comment: room air | BMI 30.59 kg/m | BSA 1.91 m Physical Exam Constitutional: Appearance: Normal appearance. HENT: Head: Normocephalic. Right Ear: Tympanic membrane, ear canal and external ear normal. Left Ear: Tympanic membrane, ear canal and external ear normal. Nose: Rhinorrhea present. Right Sinus: No maxillary sinus tenderness or frontal sinus tenderness. Left Sinus: No maxillary sinus tenderness or frontal sinus tenderness. Mouth/Throat: Pharynx: No posterior oropharyngeal erythema. Cardiovascular: Rate and Rhythm: Normal rate and regular rhythm. Pulmonary: Effort: Pulmonary effort is normal. No respiratory distress. Breath sounds: Wheezing and rhonchi present. Musculoskeletal: Cervical back: Neck supple. Skin: General: Skin is warm. Neurological: Mental Status: She is alert and oriented to person, place, and time. Psychiatric: Mood and Affect: Mood normal. Assessment and Plan 1. Hospital discharge follow-up Sepsis, pneumonia, elevated trop, cardiac cath, AJIT 2. Sinus pressure Neti pot, Flonase Call if symptoms worse or develop fever 3. Vertigo - Meclizine HCl 25 MG Oral Tablet (Antivert); Take 1 Tablet by mouth 3 times a day as needed for Dizziness. Dispense: 90 Tablet; Refill: 3 4. Decreased GFR Repeat BMP today 6. Pneumonia due to infectious organism, unspecified laterality, unspecified part of lung F/u x-ray 4-6 weeks - XR CHEST 2 VIEWS; Future 7. Generalized weakness - POWER MOBILITY DEVICE ASSESSMENT 8. Coronary artery disease involving [place] heart without angina pectoris, unspecified vessel or lesion type Cont current meds, f/u cardiology 9. HTN, goal below 140/80 10. Tobacco use Wrap-Up I have advised the patient to call our office with any worsening or new symptoms. I spent a total of 30-39 minutes (exact time 38 mins) on the date of service in preparation, delivery, and documentation of the care provided to Fritz Gonzalez excluding any time spent in the performance of separately billed services. Marielena Cline, MSN, [facility]TE [facility] documented in this encounter Nursing Notes * Pop Blackman RN - 12/17/2022 2:25 PM EDT Chief Complaint Patient presents with Hospital Follow-Up Sepsis, pneumonia - patient states her back and legs are hurting today Runny Nose Sinus Problem pain Cough Slightly productive for white mucous - started this past Saturday documented in this encounter Miscellaneous Notes * Pt Handout (on AVS) - CODY, PATIENT HANDOUT - 12/17/2022 2:39 PM EDT Images from the original note were not included. 2843 Quit-Smoking Tools: Help for Kicking Your Habit If you're a smoker and you need some more reasons to quit, look at what the U.[place]. Surgeon General has to say: If you stop now, you'll have a better quality of life and more years to live it. As you likely already know, quitting smoking isn't easy. But millions of other people have done it.And you can, too. Quit-smoking aids, such as those listed here, can increase your chance of success: Quit lines. When you call a quit line, you can talk with someone who's trained to help people quit smoking. It's free. And you can call almost any time. Find a quit line by calling the [place] [employer]. Nicotine patches. They give you a measured dose of nicotine through your skin to fight cravings.And you can buy patches without a prescription. Several types and strengths are available. The 1 you choose depends on your body size. And it also depends on how much you smoked. Try to slowly decrease your dose. These patches have been known to cause trouble sleeping. If this happens to you, remove the patch before going to bed. Replace it when you wake up. Nicotine gum. This fast-acting form of nicotine replacement doesn't need a prescription. And it comes in 2 strengths: 2 mg and 4 mg. Chew the gum slowly until it tastes peppery. Then place the gumagainst your cheek. Switch between chewing it and placing it next to your cheek. Do this for about 20 to 30 minutes. But don't eat or drink anything when using the gum. This reduces nicotine absorption. Scheduling your doses throughout the day may work better to calm your cravings. Nicotine nasal spray. A prescription nasal spray sends nicotine quickly to the bloodstream. So, it eases withdrawal symptoms right away. The spray offers a sense of control over your cravings. Most smokers using it report great results. But it can cause sneezing and watery eyes because it tastespeppery. The FDA advises using it for up to 6 months only. Nicotine inhalers. Using this prescription device is like smoking a cigarette. When you puff on the inhaler, a cartridge inside the plastic tube gives off nicotine. But the medicine doesn't go into your lungs. It's delivered to your mouth for quick absorption. Nicotine lozenges. These umop-vcg-tttkckc lozenges also are available in 2-mg and 4-mg strengths. You decide which dose to take. This is based on when you often had your first cigarette of the day. You'll absorb less nicotine if you eat or drink while using a lozenge. Bupropion. This non-nicotine prescription medicine affects chemicals that are responsible for cravings. So, it reduces withdrawal symptoms. It has the active ingredient bupropion. This is used as an antidepressant. You can use it alone or with nicotine-replacement therapy. Varenicline. This oral prescription medicine reduces nicotine withdrawal symptoms. It also decreases the pleasure you get from smoking. Side effects can include changes in mood or behavior. It's important to use this medicine under medical supervision. Quit-smoking aids can help you have a smoke-free future. But it's also smart to develop a plan to change your personal habits. And to set up a network of emotional support. Turn to family and friends, and your healthcare provider. They can give you valuable information on quitting. Also go to www.smokefree.gov for support and tips. Last Reviewed Date: 07/28/202119992289-8537 The [employer]. All rights reserved. This information is not intended as a substitute for professional medical care. Always follow your healthcare professional's instructions. * Pt Handout (on AVS) - COYD PATIENT HANDOUT - 12/17/2022 2:39 PM EDT Images from the original note were not included. [id number] Kicking the Smoking Habit If you smoke, it doubles your risk of heart disease. Quitting is one of the best changes you can make for your heart and your overall health. Your risk of heart attack goes down within one day of putting out that last cigarette. As you go longer without smoking, your risk drops even more. Quitting isn?t easy. But millions of people have done it. You can, too. It?s never too late to quit. Getting started Boost your chances of success by deciding on your quit plan. Your healthcare provider and cardiac rehab team can help you create this plan. Even if you?ve already quit, it?s easy to slip back into smoking. Your plan can help you prevent and recover from relapse. Start by setting a date to quit within a month. And then do it. [place] to your quit plan Talk with your healthcare provider about prescription medicines and nicotine replacement products that help stop the urge to smoke. Join a support group or quit-smoking program. Talking with others about the challenges of quitting can help you get through them. For more support options, try www.smokefree.gov. Ask other smokers in your home to quit with you. Look for the cues in your life that you connect with smoking. Stay away from them. Track your triggers What gives you that ?M-panw-q-cigarette? feeling? List all the situations that make you want a cigarette. Then think of other ways to deal with these situations. Here are some examples: Situation How I'll handle it Finishing a meal Get up from the table and take a walk. Having an argument Find a quiet place and breathe deeply. Feeling lonely or bored Call a friend to talk. Tips for quitting successfully List the benefits of quitting, such as reducing heart risks and saving money. Keep this list andreview it whenever you feel like smoking. Get support. Let your friends know you may call them to talk when you have an urge to smoke. If you?ve tried to quit before without success, this time stay away from the triggers that may cause relapse. Make the most of slip-ups. Try to learn from them, and then get back on track. Be accountable to your friends and your quit calendar so that you stay on track. For family and friends Be supportive and patient. Quitting smoking can be hard and stressful. If you smoke, now?s a great time to quit. Even if you don?t quit, never smoke around your loved one. Exposing others to secondhand smoke increases their risk for heart disease, cancer, and stroke. The best goals are reached as a team. Remember that when your loved one says they want to stop smoking. Last Reviewed Date: 10/27/202119992521-3709 The [employer]. All rights reserved. This information is not intended as a substitute for professional medical care. Always follow your healthcare professional's instructions. * Pt Handout (on AVS) - [facility] PATIENT HANDOUT - 12/17/2022 2:39 PM EDT Images from the original note were not included. [id number] Planning to Quit Smoking You may have been thinking about quitting smoking. Or your healthcare provider may have told you that you need to quit. Only you can decide if and when you are ready to quit. Quitting is hard to do. It's not unusual to try a number of times before you completely stop. But don't get discouraged. Thebenefits will be worth it. When you decide to quit, come up with a plan that?s right for you. Discuss your plan with your healthcare provider. And make sure you talk about medicines that can help you quit. Support to quit First, pick a quit date within the next 2 weeks. Use the time to make a plan and arrange for support. such as: Support groups and counselors. Smoking-cessation groups can be very helpful. Group members can support each other both during and outside of group meetings. Counseling, even by phone, is also effective for some people. Ask your healthcare provider, local hospital, or public health department about available programs. Or call your state quit line at 836-IVKG-WMJ (300-033-4175). Also look for programs online such as smokefree.gov and BeTobaccoFree.gov. Family and friends. Tell your family and friends about your quit date and ask for their support.If they smoke, arrange to see them in smoke-free places. Don?t allow smoking in your home or car. Smoking-cessation medicines There are several medicines that can help you quit smoking. Some contain nicotine and some don't. And some are prescription while others are not. They can help control the desire to smoke and the uncomfortable symptoms people have when they try to quit. Others slowly lessen the level of nicotine inthe body. It is the nicotine that makes it hard to quit. Your healthcare provider and pharmacist can tell you about all the choices available. Prescription medicines. Bupropion, varenicline, and nicotine nasal spray or inhaler. Nicotine replacement therapy. Gum, inhaler, lozenge, and patch. My Plan My quit date is: Friends and family who will support me are: If I want to smoke, I will: I will remove tobacco products/not smoke on: Last Reviewed Date: 04/29/202019991908-4896 [employer]. All rights reserved. This information is not intended as a substitute for professional medical care. Always follow your healthcare professional's instructions. * Pt Handout (on AVS) - C[facility], PATIENT HANDOUT - 12/17/2022 2:39 PM EDT Images from the original note were not included. 93266 Tips for Quitting Smoking (Cardiovascular) Quitting smoking is a gift to yourself. It's one of the best things you can do to keep your heart disease from getting worse. Smoking reduces oxygen flow to your heart. It does this in two ways. It speeds the buildup of plaque along the artery cr. And it changes the health of your blood vessels.This raises your risk for heart attack, also known as acute myocardial infarction (AMI). Quitting helps reduce smoking's harmful effects. You may have tried to quit before, but don?t give up. Try again. Many smokers try a few times before they succeed. It's never too early to benefit from quitting smoking. This is especially true if you already have ongoing (chronic) conditions, such as high blood pressure and high cholesterol. These put you at higher risk for cardiovascular disease. Quitting smoking is a powerful way to reduce your risk for coronary disease. Line up help Ask for the support of your family and friends. Join a smoking cessation class. Or ask your healthcare provider for a referral to a psychologistwho specializes in helping people quit smoking. Ask your healthcare provider about nicotine replacement products. Also ask about prescription medicines that can help you quit. It may take some time to find a product and schedule that works for you. Set a quit date Choose a date in the next 2 to 4 weeks. After picking a day, dale it in bold letters on a calendar. Your quit list Ideas to stop smoking include: 1. Start by giving up cigarettes at the times you least need them. 2. Keep some fruit close by at the times you are most likely to reach for a cigarette. For many people, smoking has an oral fixation component. This must be recognized and replaced by a healthy habit. 3. Use a nicotine replacement product instead of a cigarette. Write down a few more ideas: Set limits Limit where you can smoke. Pick a room or a porch. Smoke only in that place. Make smoking outdoors a house rule. Other smokers won?t tempt you as much. Talk with smokers around you about your intent to stop smoking. Then they can show considerationfor you and limit their smoking around you. Hang a list of ?quit benefits? in the spot where you smoke. Put one on the refrigerator and another on your car dashboard. For more information National Cancer [place] Smoking Quitline smokefree.gov/yzzo-sc-ub-expert 497-02O-HOKE (592-294-0240) Last Reviewed Date: 11/27/202119998417-6947 [employer]. All rights reserved. This information is not intended as a substitute for professional medical care. Always follow your healthcare professional's instructions. * Pt Handout (on AVS) - [facility] PATIENT HANDOUT - 12/17/2022 2:39 PM EDT Images from the original note were not included. 00292 Getting Support for Quitting Smoking You don?t have to go through the process of quitting smoking without support. Tell people you are quitting. The support of friends, coworkers, and family members can make a big difference. Qycy-gw-aojq or telephone counseling can also be helpful, as can a stop-smoking class or an ex-smokers? group. Set a quit date If you?re serious about quitting smoking, choose a specific quit date within the next 2 to 4 weeks.Dale it in bright, bold letters on a calendar you use often. Tell people about your quit date. Ask for their support. Let your friends, coworkers, and family know how they can help you quit. Make a contract A quit-smoking contract gives you a goal. Write out the contract and sign it. Have it witnessed, ifyou like. Then keep the contract where you?ll see it often, or carry it with you. Read the contractwhen you?re tempted to smoke. Take action On the day you quit, reread your quit contract. Think about the benefits you gain by quitting, suchas better health and an improved sense of taste, as well as the money you will save from not smoking. Also: Remove cigarettes from your home, car, or any other place where you stash them. Throw away all smoking materials, including matches, lighters, and ashtrays. Review your list of triggers and your plan for coping with each of them. Stay away from people or settings you link with smoking. Make a quit kit that includes gum, mints, carrot sticks, and things to keep your hands and mouthbusy. Talk to your healthcare provider about using quit-smoking products, such as medicine or a nicotine patch, inhaler, nasal spray, gum, or lozenges. Ask for help Sometimes you may just need to talk when you miss smoking. Ex-smokers are good to talk to, because they?re likely to know how you feel. You may need extra support in the first few weeks after you quit. Ask a friend to call you each day to see how you?re doing. Telephone counseling can also help youkeep on track. Ask your healthcare provider, local hospital, or public health department to put youin touch with a phone counselor. You may also have to deal with doubters when you decide to quit. Explain to any doubters why you are quitting. Tell them that quitting is important to you. Ask for their support. Tell your smoking buddies that you can walk together instead of smoking together. If someone thinksyou won?t succeed, say that you have a good quit plan and ask for their support. Let them know you?re sticking with it. If they can't give you support, consider limiting contact with them for a while. Stay positive, and if you slip, start again. Quitting smoking often requires repeated attempts. Butsmokers do quit for good. It's hard, but with determination and support, you can do it. To learn more Get more tips from these resources: CDC at www.cdc.gov/tobacco/quit_smoking or 392-XLQU-NKM (412-085-6964) National Cancer Ber[employer] at www.smokefree.gov or 365-40U-ABZM (291-117-3998) [place] [employer] at www.lung.org/stop-smoking or 800-LUNGUSA (756-572-5054) Last Reviewed Date: 04/29/202119995334-6162 [employer]. All rights reserved. This information is not intended as a substitute for professional medical care. Always follow your healthcare professional's instructions. documented in this encounter Plan of Treatment Upcoming Encounters Date Type Specialty Care Team Description 01/21/2023 Imaging Radiology 02/19/2023 Office Visit Neurology Gloria Florez PA-C [address] [place] [address] 02/20/2023 Office Visit Family Medicine Irvin Iverson MD [address] [place] [address] 04/19/2023 Office Visit Cardiology Laina Greer CRNP [address] [place] [address] Scheduled Orders Name Type Priority Associated Diagnoses Orde r Schedule XR CHEST 2 VIEWS Medical Imaging Routine Pneumonia due to infectious organism, unspecified laterality, unspecified part of lung Expected: 01/17/2023 (Approximate), Expires: 01/18/2024 Health Maintenance Due Date Last Done Comments [...] Additional history exists CKD HGB USE SMARTSET 01742 08/07/202308/06, 08/06/2022, 11/03/2021, Additional history exists Mammogram 08/08/2023 08/07/2022 Albumin/Creatinine Ratio 12/18/2023 023, 10/05/2020, 05/28/2019, Additional history exists CKD PHOS USE SMARTSET 22724 12/18/20232 04/2022, 11/20/2020, 09/06/2017 DTaP,Tdap,and Td Vaccines [...] as of this encounter Visit Diagnoses Diagnosis Hospital discharge follow-up- Primary Other follow-up examination Sinus pressure Other diseases of nasal cavity and sinuses Vertigo Dizziness and giddiness Decreased GFR Nonspecific abnormal results of kidney function study Pneumonia due to infectious organism, unspecified laterality, unspecified part of lung Generalized weakness Other malaise and fatigue Type 2 diabetes mellitus with hemoglobin A1c goal of less than 8.0% ([facility]) Coronary artery disease involving [place] heart without angina pectoris, unspecified vessel or lesion type HTN, goal below 140/80 Unspecified essential hypertension Tobacco use Tobacco use disorder documented in this encounter Advance Directives Latest Code Status on File Code Status Date Activated Date Inactivated Comments Full Code 02/15/2010 3:36 AM 02/16/2010 9:42 PM Thi s order reflects the patients wishes and were consensually agreed upon. Question Answer Comments Discussion of Advance Directives occurred with: Patient Care Teams Hand Tapper Relationship Specialty Start Date End Date Irvin Iverson MD [address] [place] [address] PCP - General Family Medicine 04/02/22 documented as of this encounter
--- OUTSIDE RECORDS SUMMARY | 2023-04-22 11:21 | External Medical Summary | Summary of Care ---
Author Name Unknown Organization [facility] Address [address] [place] [address] Phone [phone] Care Team Providers Care Braker Passenger Train Name Role Phone Irvin Iverson MD Primary Care Provider + Reason for Visit * Reason Comments eRx-Medication Refill Encounter Details Date Type Department Care Team Description 01/01/2023 Refill Neurology [facility] [place] [address] [place] [address] Gloria Florez PA-C [address] [place] [address] Allergies Active Allergy Reactions Severity Noted Date Comments Azithromycin Other (Please comment) 03/28/2004 cramps Covid-19 Mrna Vacc (Moderna) 07/24/2021 Severe SOB/ hospitalized. Eggs Or Egg-Derived Products 05/25/2022 Other reaction(s): vomiting Ensure 02/10/2007 Vomiting, diarrhea Mushroom Extract Complex Itching 12/17/2022 Mushrooms Novocain 02/15/2010 hives [place] Extract 05/25/2022 Other reaction(s): Hives Tramadol Seizure [...] Reported on 12/17/2022 Blood Glucose Monitoring Suppl ([employer] VERIO FLEX SYSTEM) w/Device KIT Use as [...] day . 45 Tablet 3 12/07/19 22 Active Additional Information Patient not taking.Informant: Patient, Reported on 12/17/2022 Atorvastatin Calcium 80 MG Oral Tablet (Lipitor)Indicatio ns:HTN, goal below 140/80,Coronary artery disease involving [place] heart without angina pectoris, unspecified vessel or [...] Oral Tablet (pLAVix)Indication s:Coronary artery disease involving [place] heart without angina pectoris, unspecified vessel or [...] (congestive heart failure) (HCC),Coronary artery disease involving [place] coronary artery of [place] heart without angina pectoris,Nonrheuma tic aortic valve [...] 90 Capsule 1 01/02/20 23 Active Gabapentin 300 MG Oral Capsule [...] mgIndications:Surveillance for Depo-Provera contraception 150 mg IM [id number] 09/09/2019 Active documented as of this encounter [...] without hepatic coma 09/09/2017 Overview: 09/13 dx [facility]. Genotype 1A. Confirmed 2021. New since 2015. Hx shared needles. Coronary artery disease involving [place] heart without angina pectoris 12/19/2016 S/P coronary [...] PCI mid right PDA with single ROJAS [facility]. EF stable 55-60%. Lung nodules inc9mm LLL. ?infection. Consider kailyn 1mo CT. 11/14 Dr Michael VERGARA Trazodone 100mg? Suboxone Dr Max Garcia 06/17 incarcerated 01/14 admit [facility] ODvs suicide attempt. 02/13 d/c to [facility] in [place]. 09/13 ICU/intubated-fungal izihof-wfvvy-Rdyutjo dubliniensis. , hand abscess dayna albicans MED [...] 06/23/2019 03/19/2022 Coronary artery disease invo lving [place] coronary artery of [place] heart without angina pectoris 06/23/2019 12/14/2021 Encounter for monitoring Suboxone maintenance th erapy 09/24/2018 12/14/2021 Polysubstance abuse 02/26/2018 03/19/2022 Overview: Fall 2017 rehab [facility] will establish w[facility] 02/2018 Suicide attempt [...] 03/11/2013 04/11/2021 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 03/31/2012 015 group home current use of anticoagulant therapy 0 08/07/2010 [...] platelets elevated at 464, repeat CBC at [place] [facility] 02/08: Repeat ultrasound is recommended in [...] encounter Miscellaneous Notes * Telephone Encounter - Gloria Lange MD - 01/01/2023 3:29 PM EDTSigned Prescriptions: Disp Refills Gabapentin 300 MG Oral Capsule (Neurontin) 90 Cap*1 Sig: TAKE 1 CAPSULE BY MOUTH THREE TIMES A DAY Authorizing Provider: GLORIA LANGE * Telephone Encounter - Valeria Ji MED [employer] - 01/01/2023 2:37 PM EDT Pending Prescriptions: Disp Refills Gabapentin 300 MG Oral Capsule [Pharmacy M*90 Cap*1 Sig: TAKE 1 CAPSULE BY MOUTH THREE TIMES A DAY * Telephone Encounter - Kathleen Gan CPhT - 01/01/2023 2:26 PM EDT Patient is requesting high priority Did you pend patient's preferred pharmacy and medication before forwarding?yes Pharmacy: [id number] [address] [place] Pending Prescriptions: Disp Refills Gabapentin [...] in Results Review. Patient Phone Numbers mobile [phone] Labs: Lab Results Component Value Date/Time CREAT [...] Office Visit Neurology [facility] [address] [facility] [address] 02/20/2023 Office Visit Family Medicine Irvin Iverson MD [address] [place] [address] 04/19/2023 Office Visit Cardiology Laina Greer CRNP [address] [place] [address] Health Maintenance Due Date Last Done Comments [...] Additional history exists CKD HGB USE SMARTSET 64066 08/07/202308/06, 08/06/2022, 11/03/2021, Additional history exists Mammogram 08/08/2023 08/07/2022 Albumin/Creatinine Ratio 12/18/2023 023, 10/05/2020, 05/28/2019, Additional history exists CKD PHOS USE SMARTSET 05174 12/18/202311/28, 11/20/2020, 09/06/2017 DTaP,Tdap,and Td Vaccines (3 [...] Advance Directives occurred with: Patient Care Teams Braker Passenger Train Relationship Specialty Start Date End Date Irvin Iverson MD [address] [place] [address] PCP - General Family Medicine 04/02/22 documented as of this encounter
--- OUTSIDE RECORDS SUMMARY | 2023-04-22 11:22 | External Medical Summary | Summary of Care ---
Author Name Unknown Organization [facility] Address [address] [place] [address] Phone [phone] Care Team Providers Care Bingo Caller Name Role Phone Irvin Kramer MD Primary Care Provider + Reason for Visit * Reason Comments eRx-Medication Refill Encounter Details Date Type Department Care Team Description 11/06/2022 Refill Family Practice [facility] [address] [place] [address] Margarette Curtis MD [address] [place] [address] Lumbar disc disease Allergies Active Allergy Reactions Severity Noted Date Comments Azithromycin Other (Please comment) 03/28/2004 cramps Covid-19 Mrna Vacc (Moderna) 07/24/2021 Severe SOB/ hospitalized. Eggs Or Egg-Derived Products 05/25/2022 Other reaction(s): vomiting Ensure 02/10/2007 Vomiting, diarrhea Novocain 02/15/2010 hives [place] Extract 05/25/2022 Other reaction(s): Hives Tramadol Seizure High 09/09/2012 documented as of this encounter (statuses as of 11/09/2022) Medications Medication Sig Dispensed Refills Start Date End Date Status LANCET DEVICE MISCIndications:D M type 2, not at goal (HCC) use as directed - for One Touch Ultra 1 box 5 05/09/19 10 Active Blood Glucose Monitoring Suppl (ONETOUCH VERIO FLEX SYSTEM) w/Device KIT Use as directed. 0 Active Insulin Syringe-Needle U-100 27G X 1/2" 1 ML Use as directed. 0 Active ONETOUCH DELICA LANCETS 33G MISCIndications:T ype 2 diabetes mellitus with hemoglobin A1c goal of less than 8.0% ([facility]) Test as directed. Pt test 2 times daily. E11.9 100 Each 11 08/27/19 19 Active NOVOFINE 32G PEN NEEDLE 32G X 6 MM MISCIndications:T ype 2 diabetes mellitus with hemoglobin A1c goal of less than 8.0% ([facility]) USE ONCE DAILY 100 Each 1 10/01/19 20 Active Nitroglycerin 0.4 MG Sublingual Tablet Sublingual [...] day. 60 Tablet 1 05/17/19 22 Active OneTouch Ultra Blue In Vitro Strip (Glucose Blood) Test three times daily. Dx E11.9 poorly controlled 300 Strip 3 07/25/19 22 Active Meclizine HCl 25 MG Oral Tablet (Antivert)Indicat ions:Vertigo TAKE 1 TABLET BY MOUTH THREE TIMES A DAY NEEDED FOR DIZZINESS 90 Tablet 3 07/27/19 22 Active oxygen IN GASIndications:No cturnal hypoxemia Use as directed 2 L/min(Oxygen) as needed (via nasal cannula with exertion). titrate to off if SpO2 90-94%. 3 LPM via nasal cannula at bedtime and with all sleep. 1 Each 0 09/29/19 22 Active Spironolactone 25 MG Oral Tablet (Aldactone)Indica tions:Fatigue, unspecified type Take by mouth 0.5 Tablets in the morning. 90 Tablet 1 10/28/19 22 Active medroxyPROGESTERo ne Acetate 150 MG/ML Intramuscular Suspension (Depo-Provera)Ind ications:Surveill ance for Depo-Provera contraception INJECT 1 ML INTRAMUSCULARLY EVERY 3 MONTHS 1 mL 3 12/01/19 22 Active Ferrous Sulfate 325 (65 Fe) MG Oral Tablet (Feosol)Indicatio ns:Iron deficiency anemia, unspecified iron deficiency anemia type Take by mouth 1 Tablet every other day . 45 Tablet 3 12/07/19 22 Active Clopidogrel Bisulfate 75 MG Oral Tablet (pLAVix)Indicatio ns:Coronary artery disease involving otoe-[place]ouria heart without angina pectoris, unspecified vessel or lesion type,S/P coronary artery stent placement TAKE 1 TABLET BY MOUTH EVERY DAY 90 Tablet 1 08/20/19 23 Active Atorvastatin Calcium 80 MG Oral Tablet (Lipitor)Indicati ons:HTN, goal below 140/80,Coronary artery disease involving otoe-[place]ou[place] heart without angina pectoris, unspecified vessel or [...] morning. 90 Tablet 1 09/01/19 23 Active Torsemide 20 MG Oral Tablet (Demadex) Take 1 Tablet by mouth in the morning and 1 Tablet before bedtime. 60 Tablet 5 09/02/19 23 Active Metoprolol Succinate ER 25 MG [...] HEARTBURN. 180 Tablet 2 09/28/19 23 Active metFORMIN HCl 1000 MG Oral Tablet (Glucophage)Indic ations:Type 2 diabetes mellitus with hemoglobin A1c goal of less than 8.0% (HCC) Take 1 Tablet by mouth in the morning and 1 Tablet before bedtime. With food.. 180 Tablet 0 09/28/19 23 Active Gabapentin 300 MG Oral Capsule (Neurontin) TAKE BY MOUTH 1 CAPSULE IN THE MORNING AND 1 CAPSULE AT NOON AND 1 CAPSULE BEFORE BEDTIME. 90 Capsule 1 09/29/19 23 Active Lisinopril 5 MG Oral Tablet (Prinivil)Indicat ions:HTN, goal below 130/80 TAKE 1 TABLET BY MOUTH EVERY DAY IN THE MORNING 90 Tablet 1 10/14/19 23 Active Mupirocin 2 % External Ointment (Bactroban) APPLY TOPICALLY TO AFFECTED AREA THREE TIMES A DAY FOR UP TO 14 DAYS 22 g 10 10/24/19 23 Active Cyclobenzaprine HCl 10 MG Oral Tablet (Flexeril)Indicat ions:Lumbar disc disease TAKE 1 TABLET BY MOUTH IN THE MORNING AND BEFORE BEDTIME 60 Tablet 0 11/10/19 23 Active Cyclobenzaprine HCl 10 MG Oral Tablet (Flexeril)Indicat ions:Lumbar disc disease TAKE 1 TABLET BY MOUTH IN THE MORNING AND BEFORE BEDTIME 60 Tablet 0 09/28/19 23 023 Discontinued Hospital, Clinic, or Other Facility Administered Medication Ordered Dose Route Frequency Start Date End Date Status lidocaine 1 % inj 21 mgIndications:Cellulitis of arm, left,Abscess of multiple sites of upper arm 21 mg IJ Daily(AM) 09/20/2017 Active medroxyPROGESTERone acetate (DEPO-PROVERA) inj NORBERTO 150 mgIndications:Surveillance for Depo-Provera contraception 150 mg IM [id number] 09/09/2019 Active documented as of this encounter (statuses as of 11/09/2022) Active Problems Problem Noted Date Adrenal adenoma, [...] hepatic coma 09/09/2017 Overview: 09/13 dx [facility]. Genotype 1A. Confirmed 2021. New since 2015. Hx shared needles. Coronary artery disease involving otoe-missouria heart without angina pectoris 12/19/2016 S/P coronary artery stent placement 11/28 Nonrheumatic aortic valve stenosis 11/16 History of narcotic addiction 01/20/2015 Overview: OD 01/2018 with neurontin Caution with neurontin, issues getting different scrips with different doses TERMINATED MEDICATION USAGE AGREEMENT Medical home patient encounter 5 Overview: NEED PAP 07/18 admitted [facility]. EEG--encephalopathy, abnormal. 2019-need restart atorv 80?. 02/23/20 PCI mid right PDA with single ROJAS [facility]. EF stable 55-60%. Lung nodules inc9mm LLL. ?infection. Consider kailyn 1mo CT. 11/14 Dr Michael LEDESMA Trazodone 100mg? Suboxone Dr Max Garcia 06/17 incarcerated 01/14 admit [facility]/Ashkan ODvs suicide attempt. 02/13 [facility] [place]. 09/13 ICU/intubated-fungal macffs-yuqdh-Fotnpwc dubliniensis. , hand abscess dayna albicans MED [...] as of this encounter (statuses as of 11/09/2022) Resolved Problems Problem Noted Date Resolved Date Hydronephrosis, right 12/06/2020 04/11/2021 Acute on chronic diastolic congestive heart fail ure 03/03/2020 08/26/2020 Major depressive disorder, recurrent, unspecifie d 12/30/2019 12/14/2021 Uncomplicated opioid dependence 06/23/2019 03/19/2022 Coronary artery disease invo lving otoe-missouria coronary artery of otoe-missouria heart without angina pectoris 06/23/2019 12/14/2021 Encounter for monitoring Suboxone maintenance th erapy 09/24/2018 12/14/2021 Polysubstance abuse 02/26/2018 03/19/2022 Overview: Fall 2017 rehab [facility]-meth, etc will establish w/[facility] 02/2018 Suicide attempt by drug ingestion 02/20/2018 02/26/2018 Overview: gabapentin Seizure 09/09/2017 07/19/2020 Overview: 09/13 seizure noted. 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 Supervision of high-risk of swathi baez 01/11/2010 02/08/2010 Overview: H/o loss at 20-22 [...] Per Lipid Taxonomy. HTN, goal below 140/90 07/25/200012/14/202 2 Overview: Per HTN Taxonomy. Carpal tunnel syndrome of left wrist 01/19/1999 04/11/2021 Dental disorder NEC 07/20/1998 02/08/2010 Tobacco use disorder 12/22/2007 documented as of this encounter (statuses as of 11/09/2022) Immunizations Name Administration Dates Next Due COVID-19 mRNA, LNP-s, No Pre serve, 2-Dose Series (Moderna) 09/16/2020 Hepatitis B, 20+ yrs 08/26/2018,10/03/19 18,09/16/2017,12/19(Deferred: Patient Refused),03/02/2016,10/18/2014 Pneumococcal Polysaccharide PPV23 (Pneumovax) 11/28/2005 Seasonal Influenza, Quadriva lent, No Preserve, 6 Mons & Above, IM 02/10/2021,01/18/2021(Deferred: Patient Refused),03/03/2020 TDAP (age 10 and [...] Telephone Encounter - Irvin Kramer MD - 11/09/2022 5:07 PM EDTSigned Prescriptions: Disp Refills Cyclobenzaprine HCl 10 MG Oral Tablet (Fle*60 Tab*0 Sig: TAKE 1 TABLET BY MOUTH IN THE MORNING AND BEFORE BEDTIME Authorizing Provider: IRVIN KRAMER * Telephone Encounter - Interface, E-Rx Ss Inbound - 11/08/2022 2:50 PM EDT Pending Prescriptions: Disp Refills Cyclobenzaprine HCl 10 MG Oral Tablet [Pha*60 Tab*0 Sig: TAKE 1 TABLET BY MOUTH IN THE MORNING AND BEFORE BEDTIME * Telephone Encounter - Augusta Maldonado [facility] - 11/08/2022 12:21 PM EDTPending Prescriptions: Disp Refills Cyclobenzaprine HCl 10 MG Oral Tablet [Pha*60 Tab*0 Sig: TAKE 1 TABLET BY MOUTH IN THE MORNING AND BEFORE BEDTIME * Telephone Encounter - Augusta Maldonado [facility] - 11/08/2022 12:21 PM EDT Did you pend patient's preferred pharmacy and medication before forwarding?yes Pharmacy: [id number] Pending Prescriptions: Disp Refills Cyclobenzaprine HCl 10 MG Oral Tablet (Fl*60 Tab*0 Sig: TAKE 1 TABLET BY MOUTH IN THE MORNING AND BEFORE BEDTIME Last Visit: 08/06/2022 (in office), 12/15/2021 (telemedicine) Next Visit: 11/14/2022 If no future appointments scheduled, and last appointment is greater than a year ago, please schedule patient for a follow-up appointment Last date the medication was ordered: 09/27/22 Is this request for a controlled substance?No Urine Drug Screen: Results for orders placed or performed in visit on 11/03/21 TOXICOLOGY, URINESCREEN W/ CONFIRMATION Result Value Amphetamine Negative Benzodiazepines [...] Labs: Lab Results Component Value Date/Time CREAT 1.29 (H) 08/22/2022 10:31 AM CREAT 0.76 11/20/2020 12:00 AM CREAT 0.9 11/04/2019 03:30 PM POTASSIUM 4.4 08/22/2022 10:31 AM POTASSIUM 4.7 11/20/2020 12:00 AM POTASSIUM 4.8 [...] Encounters Date Type Specialty Care Team Description 11/14/2022 Office Visit Family Medicine Sheryl Villalpando CRNP [address] [place] [address] 11/21/2022 Office Visit Cardiology Paresh Gonzales MD [address] [place] [address] 02/19/2023 Office Visit Neurology Gloria Florez PA-C [address] [place] [address] 02/20/2023 Office Visit Family Medicine Irvin Kramer MD [address] [place] [address] Health Maintenance Due Date Last Done Comments [...] Additional history exists CKD PHOS USE SMARTSET 96217 11/20/2021 11/20/2020, 0 09/06/2017 DISCUSS TOBACCO CESSATION (REFER TO SMARTSET #3291) 08/04/2022 08/04/2021, 08/28/2017 Influenza Vaccine (FLU shot) (#1) 2022 02/10/2021, 03/03/2020 HbA1c 2023 08/06/2022, 06/0 12/2020, 11/04/2019, Additional history exists GFR 02/21/2023 08/22/2022, 07/28, 11/03/2021, Additional history exists PAP SMEAR-ANNUAL AGES 18-100 07/26/2023 07/25/2022, 09/24/2017, 07/14/2014, Additional history exists CKD HGB USE SMARTSET 60537 08/07/202308/06, 08/06/2022, 11/03/2021, Additional history exists Mammogram [...] Advance Directives occurred with: Patient Care Teams Bingo Caller Relationship Specialty Start Date End Date Irvin Kramer MD [address] [place] [address] PCP - General Family Medicine 04/02/22 documented as of this encounter
--- OUTSIDE RECORDS SUMMARY | 2023-04-22 11:22 | External Medical Summary | Summary of Care ---
Author Name Unknown Organization [facility] Address [address] [place] [address] Phone [phone] Care Team Providers Care Toy [employer] Former Supervisor Name Role Phone Irvin Iverson MD Primary Care Provider + Encounter Details Date Type Department Care Team Description 12/10/2022 Result Scan Unspecified Department <No scans attached> Allergies Active Allergy Reactions Severity Noted Date Comments Azithromycin Other (Please comment) 03/28/2004 cramps Covid-19 Mrna Vacc (Moderna) 07/24/2021 Severe SOB/ hospitalized. Eggs Or Egg-Derived Products 05/25/2022 Other reaction(s): vomiting Ensure 02/10/2007 Vomiting, diarrhea Novocain 02/15/2010 hives [place] Extract 05/25/2022 Other reaction(s): Hives Tramadol Seizure High 09/09/2012 documented as of this encounter (statuses as of 12/11/2022) Medications Medication Sig Dispensed Refills Start Date End Date Status LANCET DEVICE MISCIndications:DM type 2, not at goal (HCC) use as directed - for One Touch Ultra 1 box 5 05/09/2009 Active Blood Glucose Monitoring Suppl (ONETOUCH VERIO FLEX SYSTEM) w/Device KIT Use as directed. 0 Active Insulin Syringe-Needle U-100 27G X 1/2" 1 ML Use as directed. 0 Active ONETOUCH DELICA LANCETS 33G MISCIndications:Ty pe 2 diabetes mellitus with hemoglobin A1c goal of less than 8.0% (HCC) Test as directed. Pt test 2 times daily. E11.9 100 Each 11 08/26/2018 Active NOVOFINE 32G PEN NEEDLE 32G X 6 MM MISCIndications:Ty pe 2 diabetes mellitus with hemoglobin A1c goal of less than 8.0% ([facility]) USE ONCE DAILY 100 Each 1 10/01/2019 Active Nitroglycerin 0.4 MG Sublingual Tablet Sublingual [...] for Wheezing. 300 mL 1 03/21/2021 Active Topiramate 25 MG Oral Tablet (Topamax)Indicatio ns:Chronic bilateral low back pain with right-sided sciatica Take 1 Tablet by mouth 2 times a day. 60 Tablet 1 05/17/2021 Active OneTouch Ultra Blue In Vitro Strip (Glucose Blood) Test three times daily. Dx E11.9 poorly controlled 300 Strip 3 07/24/2021 Active Meclizine HCl 25 MG Oral Tablet (Antivert)Indicati ons:Vertigo TAKE 1 TABLET BY MOUTH THREE TIMES A DAY NEEDED FOR DIZZINESS 90 Tablet 3 07/26/2021 Active oxygen IN GASIndications:Noc turnal hypoxemia Use as directed 2 L/min(Oxygen) as needed (via nasal cannula with exertion). titrate to off if SpO2 90-94%. 3 LPM via nasal cannula at bedtime and with all sleep. 1 Each 0 09/28/2021 Active Spironolactone 25 MG Oral Tablet (Aldactone)Indicat ions:Fatigue, unspecified type Take by mouth 0.5 Tablets in the morning. 90 Tablet 1 10/27/2021 Active medroxyPROGESTERon e Acetate 150 MG/ML Intramuscular Suspension (Depo-Provera)Kaylen cations:Surveillan ce for Depo-Provera contraception INJECT 1 ML INTRAMUSCULARLY EVERY 3 MONTHS 1 mL 3 11/30/2021 Active Ferrous Sulfate 325 (65 Fe) MG Oral Tablet (Feosol)Indication s:Iron deficiency anemia, unspecified iron deficiency anemia type Take by mouth 1 Tablet every other day . 45 Tablet 3 12/06/2021 Active Clopidogrel Bisulfate 75 MG Oral Tablet (pLAVix)Indication s:Coronary artery disease involving [place] heart without angina pectoris, unspecified vessel or lesion type,S/P coronary artery stent placement TAKE 1 TABLET BY MOUTH EVERY DAY 90 Tablet 1 08/19/2022 Active Atorvastatin Calcium 80 MG Oral Tablet (Lipitor)Indicatio ns:HTN, goal below 140/80,Coronary artery disease involving [place] heart without angina pectoris, unspecified vessel or lesion type,Nonrheumatic aortic valve stenosis,Dyslipide nguyen, goal LDL below 100 Take 1 Tablet by mouth in the morning. 90 Tablet 3 08/30/2022 Active Escitalopram Oxalate 10 MG Oral Tablet (Lexapro)Indicatio ns:KELLY (generalized anxiety disorder) Take 1 Tablet by mouth in the morning. 90 Tablet 3 08/30/2022 Active traZODone HCl 50 MG Oral Tablet (Desyrel) Take 1.5 Tablets by mouth at bedtime. 135 Tablet 1 08/30/2022 Active busPIRone HCl 15 MG Oral Tablet (Buspar) Take 1 Tablet by mouth in the morning and 1 Tablet before bedtime. 180 Tablet 3 08/30/2022 Active levETIRAcetam 500 MG Oral Tablet (Keppra) Take 1 Tablet by mouth in the morning and 1 Tablet before bedtime. 180 Tablet 1 08/30/2022 Active Escitalopram Oxalate 20 MG Oral Tablet (Lexapro)Indicatio ns:Depression with anxiety Take 1 Tablet by mouth in the morning. 90 Tablet 3 08/30/2022 Active Potassium Chloride Yvonne ER 20 MEQ Oral Tablet Extended Release (Klor-Con M20)Indications:Ed donald, unspecified type Take 1 Tablet by mouth in the morning. 90 Tablet 1 08/31/2022 Active Torsemide 20 MG Oral Tablet (Demadex) Take 1 Tablet by mouth in the morning and 1 Tablet before bedtime. 60 Tablet 5 09/01/2022 Active Metoprolol Succinate ER 25 MG Oral Tablet Extended Release 24 Hour (toPROL XL) Take 1 Tablet by mouth in the morning. 90 Tablet 1 08/31/2022 Active ProAir HFA 108 (90 Base) MCG/ACT Inhalation Aerosol Solution Inhale 2 Puffs by mouth every 4 hours as needed for Cough or Wheezing. 54 g 1 09/05/2022 Active Fluticasone Furoate-Vilanterol 200-25 MCG/ACT Inhalation Aerosol Powder Breath Activated (BREO ellipta) Inhale 1 Puff by mouth in the morning. Please rinse mouth out after using.. 180 Blister Dosing Unit 1 09/05/2022 Active Aspirin Low Dose 81 MG Oral Tablet Delayed Release (aspirin enteric coated)Indications :Type 2 diabetes mellitus with hemoglobin A1c goal of less than 8.0% (HCC) TAKE 1 TABLET BY MOUTH EVERY DAY 100 Tablet 3 09/27/2022 Active Famotidine 20 MG Oral Tablet (Pepcid) TAKE 1 TABLET BY MOUTH 2 TIMES A DAY NEEDED FOR HEARTBURN. 180 Tablet 2 09/27/2022 Active metFORMIN HCl 1000 MG Oral Tablet (Glucophage)Indica tions:Type 2 diabetes mellitus with hemoglobin A1c goal of less than 8.0% (HCC) Take 1 Tablet by mouth in the morning and 1 Tablet before bedtime. With food.. 180 Tablet 0 09/27/2022 Active Lisinopril 5 MG Oral Tablet (Prinivil)Indicati ons:HTN, goal below 130/80 TAKE 1 TABLET BY MOUTH EVERY DAY IN THE MORNING 90 Tablet 1 10/13/2022 Active Mupirocin 2 % External Ointment (Bactroban) APPLY TOPICALLY TO AFFECTED AREA THREE TIMES A DAY FOR UP TO 14 DAYS 22 g 10 10/23/2022 Active Cyclobenzaprine HCl 10 MG Oral Tablet (Flexeril)Indicati ons:Lumbar disc disease TAKE 1 TABLET BY MOUTH IN THE MORNING AND BEFORE BEDTIME 60 Tablet 0 11/09/2022 Active Gabapentin 300 MG Oral Capsule (Neurontin) TAKE 1 CAPSULE BY MOUTH THREE TIMES A DAY 90 Capsule 1 11/16/2022 Active Hospital, Clinic, or Other Facility Administered Medication Ordered Dose Route Frequency Start Date End Date Status lidocaine 1 % inj 21 mgIndications:Cellulitis of arm, left,Abscess of multiple sites of upper arm 21 mg IJ Daily(AM) 09/20/2017 Active medroxyPROGESTERone acetate (DEPO-PROVERA) inj NORBERTO 150 mgIndications:Surveillance for Depo-Provera contraception 150 mg IM [id number] 09/09/2019 Active documented as of this encounter (statuses as of 12/11/2022) Active Problems Problem Noted Date Adrenal adenoma, [...] without hepatic coma 09/09/2017 Overview: 09/13 dx [facility]. Genotype 1A. Confirmed 2021. New since 2015. Hx shared needles. Coronary artery disease involving [place]ix heart without angina pectoris 12/19/2016 S/P coronary [...] PCI mid right PDA with single ROJAS [facility]. EF stable 55-60%. Lung nodules inc9mm LLL. ?infection. Consider kailyn 1mo CT. 11/14 Dr Michael VERGARA Trazodone 100mg? Suboxone Dr Max Garcia 06/17 incarcerated 01/14 admit [facility]/Ashkan ODvs suicide attempt. 02/13 d/c to [facility] in [place]. 09/13 ICU/intubated-fungal [id number]-ybfvp-Aeldmlg dubliniensis. , hand abscess dayna albicans MED [...] as of this encounter (statuses as of 12/11/2022) Resolved Problems Problem Noted Date Resolved Date Hydronephrosis, right 12/06/2020 04/11/2021 Acute on chronic diastolic congestive heart fail ure 03/03/2020 08/26/2020 Major depressive disorder, recurrent, unspecifie d 12/30/2019 12/14/2021 Uncomplicated opioid dependence 06/23/2019 03/19/2022 Coronary artery disease invo lving [place] croix coronary artery of [place]ix heart without angina pectoris 06/23/2019 12/14/2021 Encounter for monitoring Suboxone maintenance th erapy 09/24/2018 12/14/2021 Polysubstance abuse 02/26/2018 03/19/2022 Overview: Fall 2017 rehab [facility]-meth, etc will establish w/[facility] 02/2018 Suicide attempt by drug ingestion 02/20/2018 02/26/2018 Overview: gabapentin Seizure 09/09/2017 07/19/2020 Overview: 09/13 seizure noted. ?prior approx 5ya --placed on gabapentin Homeless 06/14/2017 11/27/2018 Tobacco abuse 04/15/2017 08/12/2017 Systolic murmur 03/04/2016 04/11/2021 Overview: 09/13 [facility]-congential thickening Partial fusion aortica valve, [...] platelets [facility] at 464[facility] Repeat ultrasound is recommended in 3 weeks for TVS to assess cervical length. FTS negative- offer MSAFP after 15w MFM 11: Repeat ultrasound is recommended for anatomy in [...] as of this encounter (statuses as of 12/11/2022) Immunizations Name Administration Dates Next Due COVID-19 [...] Encounters Date Type Specialty Care Team Description 02/19/2023 Office Visit Neurology Gloria Florez PA-C [address] [place] [address] 02/20/2023 Office Visit Family Medicine Irvin Iverson MD [address] [facility] [place] [address] Health Maintenance Due Date Last Done Comments [...] Additional history exists CKD PHOS USE SMARTSET 24277 11/20/2021 11/20/2020, 0 09/06/2017 DISCUSS TOBACCO CESSATION (REFER TO SMARTSET #3291) 08/04/2022 08/04/2021, 08/28/2017 Influenza Vaccine (FLU shot) (#1) 2022 02/10/2021, 03/03/2020 HbA1c 2023 08/06/2022, 06/0 12/2020, 11/04/2019, Additional history exists GFR 02/21/2023 08/22/2022, 04/, 11/03/2021, Additional history exists PAP SMEAR-ANNUAL AGES 18-100 07/26/2023 07/25/2022, 09/24/2017, 07/14/2014, Additional history exists CKD HGB USE SMARTSET 28670 08/07/202308/06, 08/06/2022, 11/03/2021, Additional history exists Mammogram [...] Not on filedocumented as of this encounter Procedures Procedure Name Priority Date/Time Associated Diagnosis Comments CARDIAC CATH SCANNED RESULT 12/10/2022 documented in this encounter Results * CARDIAC CATH SCANNED RESULT (12/10/2022) 12/10/2022 No Physician Data Unknown CARD CATH documented in this encounter Advance Directives Latest Code Status on File Code Status Date Activated Date Inactivated Comments Full Code 02/15/2010 3:36 AM 02/16/2010 9:42 PM Thi s order reflects the patients wishes and were consensually agreed upon. Question Answer Comments Discussion of Advance Directives occurred with: Patient Care Teams [employer] Former Supervisor Relationship Specialty Start Date End Date Irvin Iverson MD [address] [place] [phone] PCP - General Family Medicine 04/02/22 documented as of this encounter
--- OUTSIDE RECORDS SUMMARY | 2023-04-22 11:22 | External Medical Summary | Summary of Care ---
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 Eggs Or Egg-Derived Products 05/25/2022 Other reaction(s): vomiting Ensure 02/10/2007 Vomiting, diarrhea Novocain 02/15/2010 hives [place] Extract 05/25/2022 Other reaction(s): Hives Tramadol Seizure High 09/09/2012 documented as of this encounter (statuses as of 11/16/2022) Medications Medication Sig Dispensed Refills Start Date [...] (HCC) USE ONCE DAILY 100 Each 1 10/01/2019 [...] With food.. 180 Tablet 0 09/27/2022 Active Gabapentin 300 MG Oral Capsule (Neurontin) TAKE BY MOUTH 1 CAPSULE IN THE MORNING AND 1 CAPSULE AT NOON AND 1 CAPSULE BEFORE BEDTIME. 90 Capsule 1 09/28/2022 Active Lisinopril 5 MG Oral Tablet (Prinivil)Indicati [...] BEFORE BEDTIME 60 Tablet 0 11/09/2022 Active Hospital, Clinic, or Other Facility Administered Medication Ordered Dose Route Frequency Start Date End Date Status lidocaine 1 % inj 21 mgIndications:Cellulitis of arm, left,Abscess of multiple sites of upper arm 21 mg IJ Daily(AM) 09/20/2017 Active medroxyPROGESTERone acetate (DEPO-PROVERA) inj NORBERTO 150 mgIndications:Surveillance for Depo-Provera contraception 150 mg IM [id number] 09/09/2019 Active documented as of this encounter (statuses as of 11/16/2022) Active Problems Problem Noted Date Adrenal adenoma, [...] Hx shared needles. 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 02/13 d/c to [facility] in [place]. 09/13 ICU/intubated-fungal emjujf-fazvc-Xrwlmhp dubliniensis. , hand abscess dayna albicans MED [...] as of this encounter (statuses as of 11/16/2022) Resolved Problems Problem Noted Date Resolved Date [...] abuse 02/26/2018 03/19/2022 Overview: Fall 2017 rehab [place]-meth, etc will establish w/[facility] 02/2018 Suicide attempt [...] 03/11/2013 04/11/2021 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 03/31/2012 015 skilled nursing current use of anticoagulant therapy 0 08/07/2010 [...] elevated at 464, repeat CBC at [facility] 02/08: Repeat ultrasound is recommended in [...] chromosome abnormality. Supervision of high-risk of swathi myriam sasha 01/11/2010 02/08/2010 Overview: H/o loss [...] as of this encounter (statuses as of 11/16/2022) Immunizations Name Administration Dates Next Due COVID-19 [...] encounter Miscellaneous Notes * Telephone Encounter - Colleen Izaguirre, [facility] - 11/16/2022 9:33 AM EDTRefused Prescriptions: Disp Refills Atorvastatin Calcium 80 MG Oral Tablet (Li*90 Tab*3 Sig: TAKE 1TABLET BY MOUTH EVERY DAY IN THE MORNINGRefused By: COLLEEN IZAGUIRRE for Refusal: Too soon documented in this encounter Plan of Treatment Upcoming Encounters Date Type Specialty Care Team Description 11/21/2022 Office Visit Cardiology Paresh Gonzales MD [address] [place] [address] 02/19/2023 Office Visit Neurology Gloria Florez PA-C [address] [facility] [place] [address] 02/20/2023 Office Visit Family Medicine Irvin Iverson MD [address] [place] [address] Health Maintenance Due Date Last Done Comments [...] ONCE FOR ASTHMA-ADULT 08/06/2021 Albumin/Creatinine Ratio 10/05/2021 06 021, 05/28/2019, 08/26/2018, Additional history exists CKD PHOS USE SMARTSET 06125 11/20/2021 11/20/2020, 0 09/06/2017 DISCUSS TOBACCO CESSATION (REFER TO SMARTSET #3291) 08/04/2022 08/04/2021, 08/28/2017 Influenza Vaccine (FLU shot) (#1) 2022 02/10/2021, 03/03/2020 HbA1c 2023 08/06/2022, 06/0 12/2020, 11/04/2019, Additional history exists GFR 02/21/2023 08/22/2022, 07/28, 11/03/2021, Additional history exists PAP SMEAR-ANNUAL AGES 18-100 07/26/2023 07/25/2022, 09/24/2017, 07/14/2014, Additional history exists CKD HGB USE SMARTSET 06328 08/07/202308/06, 08/06/2022, 11/03/2021, Additional history exists Mammogram [...] encounter Visit Diagnoses Diagnosis HTN, goal below 140/80 Unspecified essential hypertension 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 Question Answer Comments Discussion of Advance Directives occurred with: Patient Care Teams Acute Care Clinical Nurse Specialist Relationship Specialty Start Date End Date Irvin Iverson MD [address] [place] [address] PCP - General Family Medicine 04/02/22 documented as of this encounter
--- OUTSIDE RECORDS SUMMARY | 2023-04-22 11:22 | External Medical Summary ---
Author Name Unknown Address Unknown Organization K01:[facility] - [address] [facility] [address] Laboratory Report Ordering Provider Test Date Status JEFFRY LALA 12/17/2022 15:24:33 Final Observation Date Value Abnormality Reference (Units ) Status BUN 12/17/2022 15:24:33 10 6-20 (mg/dL) Final Creatinine 12/17/2022 15:24:33 1.3 Above high normal 0.5-1.0 (mg/dL) Final Glomerular filtration rate/1.73 sq M.predicted [Volume Rate/Area] in Serum, Plasma or Blood by Creatinine-based formula (CKD-EPI) 12/17/2022 15:24:33 52 Below low normal >=60 (mL/min) Final eGFR is calculated based on the CKD-EPI 2020 equation SODIUM 12/17/2022 15:24:33 137 135-146 (m mol/L) Final Potassium 12/17/2022 15:24:33 5.0 3.5-5.1 (m mol/L) Final Cl 12/17/2022 15:24:33 107 98-107 (mm ol/L) Final CO2 12/17/2022 15:24:33 17 Below low normal 22- 32 (mmol/L) Final Anion gap 12/17/2022 15:24:33 13 7-15 (mmol /L) Final Glucose 12/17/2022 15:24:33 75 70-120 (mg /dL) Final Calcium 12/17/2022 15:24:33 9.5 8.4-10.2 ( mg/dL) Final Performing Location [facility] - [address] [facility] [address]
--- OUTSIDE RECORDS SUMMARY | 2023-04-22 11:22 | External Medical Summary | Summary of Care ---
Author Name Unknown Organization [facility] Address [address] [place] [address] Phone [phone] Care Team Providers Care Oil Analyst Name Role Phone Irvin Kramer MD Primary Care Provider + Reason for Visit * Reason Comments eRx-Medication Refill Encounter Details Date Type Department Care Team Description 12/12/2022 Refill Family Practice [facility] [address] [facility] [address] Irvin Kramer MD [address] [facility] [place] [address] Coronary artery disease involving [place] heart without angina pectoris, unspecified vessel or lesion type; S/P coronary artery stent placement Allergies Active Allergy Reactions Severity Noted Date Comments Azithromycin Other (Please comment) 03/28/2004 cramps Covid-19 Mrna Vacc (Moderna) 07/24/2021 Severe SOB/ hospitalized. Eggs Or Egg-Derived Products 05/25/2022 Other reaction(s): vomiting Ensure 02/10/2007 Vomiting, diarrhea Novocain 02/15/2010 hives [place] Extract 05/25/2022 Other reaction(s): Hives Tramadol Seizure High 09/09/2012 documented as of this encounter (statuses as of 12/13/2022) Medications Medication Sig Dispensed Refills Start Date End Date Status LANCET DEVICE MISCIndications:D M type 2, not at goal (HCC) use as directed - for One Touch Ultra 1 box 5 05/09/19 10 Active Blood Glucose Monitoring Suppl (LoopportTOPogojo VERIO FLEX SYSTEM) w/Device KIT Use as directed. 0 Active Insulin Syringe-Needle U-100 27G X 1/2" 1 ML Use as directed. 0 Active ONETOUCH DELICA LANCETS 33G MISCIndications:T ype 2 diabetes mellitus with hemoglobin A1c goal of less than 8.0% ([facility]) Test as directed. Pt test 2 [...] . 45 Tablet 3 12/07/19 22 Active Atorvastatin Calcium 80 MG Oral Tablet (Lipitor)Indicati ons:HTN, goal below 140/80,Coronary artery disease involving [place] heart without angina pectoris, unspecified vessel or [...] food.. 180 Tablet 0 09/28/19 23 Active Lisinopril 5 MG Oral Tablet (Prinivil)Indicat ions:HTN, goal below 130/80 TAKE 1 TABLET BY MOUTH EVERY DAY IN THE MORNING 90 Tablet 1 10/14/19 23 Active Mupirocin 2 % External Ointment (Bactroban) APPLY TOPICALLY TO AFFECTED AREA THREE TIMES A DAY FOR UP TO 14 DAYS 22 g 10 10/24/19 23 Active Gabapentin 300 MG Oral Capsule (Neurontin) TAKE 1 CAPSULE BY MOUTH THREE TIMES A DAY 90 Capsule 1 11/17/19 23 Active Clopidogrel Bisulfate 75 MG Oral Tablet (pLAVix)Indicatio ns:Coronary artery disease involving [place] heart without angina pectoris, unspecified vessel or lesion type,S/P coronary artery stent placement TAKE 1 TABLET BY MOUTH EVERY DAY 90 Tablet 1 12/14/19 23 Active Clopidogrel Bisulfate 75 MG Oral Tablet (pLAVix)Indicatio ns:Coronary artery disease involving [place] heart without angina pectoris, unspecified vessel or lesion type,S/P coronary artery stent placement TAKE 1 TABLET BY MOUTH EVERY DAY 90 Tablet 1 08/20/19 23 023 Discontinued Cyclobenzaprine HCl 10 MG Oral Tablet (Flexeril)Indicat ions:Lumbar disc disease TAKE 1 TABLET BY MOUTH IN THE MORNING AND BEFORE BEDTIME 60 Tablet 0 11/10/19 23 023 Discontinued Hospital, Clinic, or Other Facility Administered Medication Ordered Dose Route Frequency Start Date End Date Status lidocaine 1 % inj 21 mgIndications:Cellulitis of arm, left,Abscess of multiple sites of upper arm 21 mg IJ Daily(AM) 09/20/2017 Active medroxyPROGESTERone acetate (DEPO-PROVERA) inj NORBERTO 150 mgIndications:Surveillance for Depo-Provera contraception 150 mg IM [id number] 09/09/2019 Active documented as of this encounter (statuses as of 12/13/2022) Active Problems Problem Noted Date Adrenal adenoma, [...] without hepatic coma 09/09/2017 Overview: 09/13 dx [facility]. Genotype 1A. Confirmed 2021. New since 2015. Hx shared needles. Coronary artery disease involving [place] heart without angina pectoris 12/19/2016 S/P coronary [...] PCI mid right PDA with single ROJAS [facility]. EF stable 55-60%. Lung nodules inc9mm LLL. ?infection. Consider kailyn 1mo CT. 11/14 Dr Michael LEDESMA Trazodone 100mg? Suboxone Dr Max Garcia 06/17 incarcerated 01/14 admit [facility]/Ashkan ODvs suicide attempt. 02/13 d/c to [facility] in [place]. 09/13 ICU/intubated-fungal jaidbc-vbfeq-Kkwntzn dubliniensis. , hand abscess dayna albicans MED [...] as of this encounter (statuses as of 12/13/2022) Resolved Problems Problem Noted Date Resolved Date Hydronephrosis, right 12/06/2020 04/11/2021 Acute on chronic diastolic congestive heart fail ure 03/03/2020 08/26/2020 Major depressive disorder, recurrent, unspecifie d 12/30/2019 12/14/2021 Uncomplicated opioid dependence 06/23/2019 03/19/2022 Coronary artery disease invo lving [place] coronary artery of [place] heart without angina pectoris 06/23/2019 12/14/2021 Encounter for monitoring Suboxone maintenance th erapy 09/24/2018 12/14/2021 Polysubstance abuse 02/26/2018 03/19/2022 Overview: Fall 2017 rehab [place]-meth, etc will establish w/[facility] 02/2018 Suicide attempt by drug ingestion 02/20/2018 02/26/2018 Overview: gabapentin Seizure 09/09/2017 07/19/2020 Overview: 09/13 seizure noted. ?prior approx 5ya --placed on gabapentin Homeless 06/14/2017 11/27/2018 Tobacco abuse 04/15/2017 08/12/2017 Systolic murmur 03/04/2016 04/11/2021 Overview: 09/13 [facility]-congential thickening Partial fusion aortica valve, trivial AI, no vegetation. 2012 TTE--mild-mod AR, ?bicuspid. Diverticulosis of large intestine without hemorr quyen 02/15/2016 01/18/2017 Leukocytosis 09/03/2014 12/14/2021 Overview: Chronic, s/p bone marrow biopsy Sciatica 03/11/2013 04/11/2021 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 03/31/2012 015 superintendent container terminal current use of anticoagulant therapy 0 08/07/2010 12/04/2011 Overview: ICD-10 update of inactive term Anticoagulation management encounter 08/07/2010 12/04/2011 ADVANCE DIRECTIVE INFORMATION 03/02/2010 Overview: No, Advance Directive brochure offered , patient declined. Cervical incompetence, antepartum 03/02/2010 04/11/2016 Enterococcus UTI 02/16/2010 12/04/2011 Other pulmonary embolism and infarction 02/16/20 10 07/29/2014 Overview: On lovenox 1 ml q 12 hr Supervision of high-risk of swathi baez 02/13/2010 08/04/2012 Overview: H/o loss at [...] as of this encounter (statuses as of 12/13/2022) Immunizations Name Administration Dates Next Due COVID-19 [...] Telephone Encounter - Irvin Kramer MD - 12/13/2022 3:27 PM EDTSigned Prescriptions: Disp Refills Clopidogrel Bisulfate 75 MG Oral Tablet (p*90 Tab*1 Sig: TAKE 1 TABLET BY MOUTH EVERY DAY Authorizing Provider: IRVIN KRAMER * Telephone Encounter - Ryan Antoine [facility] - 12/13/2022 11:40 AM EDTPending Prescriptions: Disp Refills Clopidogrel Bisulfate 75 MG Oral Tablet (p*90 Tab*1 Sig: TAKE 1 TABLET BY MOUTH EVERY DAY * Telephone Encounter - Ryan Antoine [facility] - 12/13/2022 11:39 AM EDT Unable to authorize medication refills for pended medication(s) at this time. Part of the protocol criteria used for refill authorization was not satisfied. Patient needs HGB and HCT within protocol parameters. HGB Date Value Ref Range Status 08/06/2022 8.8 (L) 12.0 - 15.3 g/dL Final Comment: Anemia reflex testing triggers on a HGB < 12.0 for Females and HGB < 13.0 for Males in accordance with the WHO Anemia Guidelines Anemia reflex testing triggers on a HGB < 12.0 for Females and HGB < 13.0 for Males in accordance with the WHO Anemia Guidelines 11/03/2021 9.9 (L) 12.0 - 15.3 g/dL Final Comment: Anemia reflex testing triggers on a HGB < 12.0 for Females and HGB < 13.0 for Males in accordance with the WHO Anemia Guidelines 08/21/2021 11.4 (L) 12.0 - 15.3 g/dL Final HCT Date Value Ref Range Status 08/06/2022 28.1 (L) 36.0 - 45.2 % Final 11/03/2021 32.4 (L) 36.0 - 45.2 % Final 08/21/2021 36.9 36.0 - 45.2 % Final Please advise. Thank You, Ryan Bell [facility] Clinical Pharmacist [facility] ([facility]) (formerly Telepharmacy) 12/13/2022, 11:39 AM * Telephone Encounter - Ryan Antoine [facility] - 12/13/2022 11:37 AM EDT Pending Prescriptions: Disp Refills Clopidogrel Bisulfate 75 MG Oral Tablet (*30 Tab*10 Sig: TAKE 1 TABLET BY MOUTH EVERY DAY Last Visit: 08/06/2022 (in office), 12/15/2021 (telemedicine) Next Visit: 12/17/2022 If no future appointments scheduled, and last appointment is greater than a year ago, please schedule patient for a follow-up appointment Last date the medication was ordered: 08/19/22 Pharmacy: [id number] [address] [facility] Is this request for a controlled substance? No Urine Drug Screen: Results for orders placed [...] Specialty Care Team Description 12/17/2022 Office Visit Cardiology Laina Greer CRNP [address] [place] [address] 12/17/2022 Office Visit Family Medicine Mareilena Cline CRNP [address] [place] [address] 02/19/2023 Office Visit Neurology [facility] [address] [facility] [address] 02/20/2023 Office Visit Family Medicine Irvin Kramer MD [address] [place] [address] Health Maintenance Due Date Last Done Comments [...] Additional history exists CKD PHOS USE SMARTSET 11674 11/20/2021 11/20/2020, 0 09/06/2017 DISCUSS TOBACCO CESSATION (REFER TO SMARTSET #2353) 08/04/2022 08/04/2021, 08/28/2017 Influenza Vaccine (FLU shot) (#1) 2022 02/10/2021, 03/03/2020 HbA1c 2023 08/06/2022, 06/0 12/2020, 11/04/2019, Additional history exists GFR 02/21/2023 08/22/2022, 04/1 , 11/03/2021, Additional history exists PAP SMEAR-ANNUAL AGES 18-100 07/26/2023 07/25/2022, 09/24/2017, 07/14/2014, Additional history exists CKD HGB USE SMARTSET 01835 08/07/202308/06, 08/06/2022, 11/03/2021, Additional history exists Mammogram [...] as of this encounter Visit Diagnoses Diagnosis Coronary artery disease involving [place] heart without angina pectoris, unspecified vessel or lesion type S/P coronary artery stent placement Postsurgical percutaneous transluminal coronary angioplasty status documented in this encounter Advance Directives Latest Code Status on File Code Status Date Activated Date Inactivated Comments Full Code 02/15/2010 3:36 AM 02/16/2010 9:42 PM Thi s order reflects the patients wishes and were consensually agreed upon. Question Answer Comments Discussion of Advance Directives occurred with: Patient Care Teams Oil Analyst Relationship Specialty Start Date End Date Irvin Kramer MD [address] [place] [address] PCP - General Family Medicine 04/02/22 documented as of this encounter
--- OUTSIDE RECORDS SUMMARY | 2023-04-22 11:22 | External Medical Summary | Summary of Care ---
Author Name Unknown Organization [facility] Address [address] [place] [address] Phone [phone] Care Team Providers Care It Architecture Consultant Name Role Phone Irvin Iverson MD Primary Care Provider + Reason for Visit * Reason Comments eRx-Medication Refill Encounter Details Date Type Department Care Team Description 11/16/2022 Refill Neurology [facility] [place] [address] [place] [address] Gloria Florez PA-C [address] [place] [address] Allergies Active Allergy Reactions Severity Noted Date Comments Azithromycin Other (Please comment) 03/28/2004 cramps Covid-19 Mrna Vacc (Moderna) 07/24/2021 Severe SOB/ hospitalized. Eggs Or Egg-Derived Products 05/25/2022 Other reaction(s): vomiting Ensure 02/10/2007 Vomiting, diarrhea Novocain 02/15/2010 hives [place] Extract 05/25/2022 Other reaction(s): Hives Tramadol Seizure [...] 8.0% ([facility]) USE ONCE DAILY 100 Each 1 10/01/19 [...] Oral Tablet (pLAVix)Indicatio ns:Coronary artery disease involving ely shoshone heart without angina pectoris, unspecified vessel or lesion type,S/P coronary artery stent placement TAKE 1 TABLET BY MOUTH EVERY DAY 90 Tablet 1 08/20/19 23 Active Atorvastatin Calcium 80 MG Oral Tablet (Lipitor)Indicati ons:HTN, goal below 140/80,Coronary artery disease involving ely shoshone heart without angina pectoris, unspecified vessel [...] FOR UP TO 14 DAYS 22 g 10/24/19 23 Active Cyclobenzaprine HCl 10 MG Oral Tablet (Flexeril)Indicat ions:Lumbar disc disease TAKE 1 TABLET BY MOUTH IN THE MORNING AND BEFORE BEDTIME 60 Tablet 0 11/10/19 23 Active Gabapentin 300 MG Oral Capsule (Neurontin) TAKE 1 CAPSULE BY MOUTH THREE TIMES A DAY 90 Capsule 1 11/17/19 23 Active Gabapentin 300 MG Oral Capsule (Neurontin) TAKE BY MOUTH 1 CAPSULE IN THE MORNING AND 1 CAPSULE AT NOON AND 1 CAPSULE BEFORE BEDTIME. 90 Capsule 1 09/29/19 23 023 Discontinued Hospital, Clinic, or Other Facility Administered Medication Ordered Dose Route Frequency Start Date End Date Status lidocaine 1 % inj 21 mgIndications:Cellulitis of arm, left,Abscess of multiple sites of upper arm 21 mg IJ Daily(AM) 09/20/2017 Active medroxyPROGESTERone acetate (DEPO-PROVERA) inj NORBERTO 150 mgIndications:Surveillance for Depo-Provera contraception 150 mg IM [id number] 09/09/2019 Active documented as of this encounter [...] without hepatic coma 09/09/2017 Overview: 09/13 dx [facility]. Genotype 1A. Confirmed 2021. New since 2015. Hx shared needles. Coronary artery disease involving ely shoshone heart without angina pectoris 12/19/2016 S/P [...] PCI mid right PDA with single ROJAS [facility]. EF stable 55-60%. Lung nodules inc9mm LLL. ?infection. Consider kailyn 1mo CT. 11/14 Dr Michael LEDESMA Trazodone 100mg? Suboxone Dr Max Garcia 06/17 incarcerated 01/14 admit [facility]/[place] ODvs suicide attempt. 02/13 [facility] [place]. 09/13 ICU/intubated-fungal lesuxy-ekkjk-Fkarfxg dubliniensis. , hand abscess dayna albicans MED [...] 06/23/2019 03/19/2022 Coronary artery disease invo lving ely shoshone coronary artery of ely shoshone heart without angina pectoris 06/23/2019 12/14/2021 Encounter for monitoring Suboxone maintenance th erapy 09/24/2018 12/14/2021 Polysubstance abuse 02/26/2018 03/19/2022 Overview: Fall 2017 rehab [place]-meth, etc will establish w/[facility] 02/2018 Suicide attempt [...] booklet. DM type 2, not at goal 09/01/200402/10/ 9 Overview: Modified per Diabetes protocol #14. [...] Miscellaneous Notes * Telephone Encounter - Gloria Florez PA-C - 11/16/2022 12:38 PM EDT Signed Prescriptions: Disp Refills Gabapentin 300 MG Oral Capsule (Neurontin) 90 Cap*1 Sig: TAKE 1 CAPSULE BY MOUTH THREE TIMES A DAY Authorizing Provider: GLORIA FLOREZ * Telephone Encounter - [facility] - 11/16/2022 11:56 AM EDTPending Prescriptions: Disp Refills Gabapentin 300 MG Oral Capsule [Pharmacy M*90 Cap*1 Sig: TAKE 1 CAPSULE BY MOUTH THREE TIMES A DAY * Telephone Encounter - Valeria Ji MED ASSIST - 11/16/2022 10:50 AM EDT Pending Prescriptions: Disp Refills Gabapentin 300 MG Oral Capsule [Pharmacy M*90 Cap*1 Sig: TAKE 1 CAPSULE BY MOUTH THREE TIMES A DAY * Telephone Encounter - Brittney Guillen fried cake maker - 11/16/2022 10:42 AM EDT Did you pend patient's preferred pharmacy and medication before forwarding?yes Pharmacy: [id number] [place] Pending Prescriptions: Disp Refills [...] appointment Last date the medication was ordered: 09-28-22 Is this request for a controlled substance?No [...] Visit Cardiology Paresh Gonzales MD [address] [place] [address] 02/19/2023 Office Visit Neurology Gloria Florez PA-C [address] [place] [address] 02/20/2023 Office Visit Family Medicine Irvin Iverson MD [address] [place] [address] Health Maintenance Due Date Last Done Comments [...] Additional history exists CKD PHOS USE SMARTSET 65737 11/20/2021 11/20/2020, 0 09/06/2017 DISCUSS TOBACCO CESSATION (REFER TO SMARTSET #5816) 08/04/2022 08/04/2021, 08/28/2017 Influenza Vaccine (FLU shot) (#1) 2022 02/10/2021, 03/03/2020 HbA1c 2023 08/06/2022, 06/0 12/2020, 11/04/2019, Additional history exists GFR 02/21/2023 08/22/2022, 04, 11/03/2021, Additional history exists PAP SMEAR-ANNUAL AGES 18-100 07/26/2023 07/25/2022, 09/24/2017, 07/14/2014, Additional history exists CKD HGB USE SMARTSET 90754 08/07/202308/06, 08/06/2022, 11/03/2021, Additional history exists Mammogram [...] Advance Directives occurred with: Patient Care Teams It Architecture Consultant Relationship Specialty Start Date End Date Irvin Iverson MD [address] [place] [address] PCP - General Family Medicine 04/02/22 documented as of this encounter
--- OUTSIDE RECORDS SUMMARY | 2023-04-22 11:22 | External Medical Summary | Summary of Care ---
Author Name Unknown Organization [facility] Address [address] [place] [address] Phone [phone] Care Team Providers Care Accounting Recruiter Name Role Phone Irvin Kramer MD Primary Care Provider + Reason for Visit * Reason Onset Date Comments eRx-Medication Refill Status Check 12/11/2022 Medication refil l Encounter Details Date Type Department Care Team Description 12/11/2022 Refill Family Practice [facility] [address] [place] [address] Irvin Kramer MD [address] [place] [address] Lumbar disc disease Allergies Active Allergy Reactions Severity Noted Date Comments Azithromycin Other (Please comment) 03/28/2004 cramps Covid-19 Mrna Vacc (Moderna) 07/24/2021 Severe SOB/ hospitalized. Eggs Or Egg-Derived Products 05/25/2022 Other reaction(s): vomiting Ensure 02/10/2007 Vomiting, diarrhea Novocain 02/15/2010 hives [place] Extract 05/25/2022 Other reaction(s): Hives Tramadol [...] ons:HTN, goal below 140/80,Coronary artery disease involving anvik heart without angina pectoris, unspecified vessel or [...] DAY 90 Capsule 1 11/17/19 23 Active Cyclobenzaprine HCl 10 MG Oral Tablet (Flexeril)Indicat ions:Lumbar disc disease TAKE 1 TABLET BY MOUTH IN THE MORNING AND BEFORE BEDTIME 60 Tablet 0 12/14/19 23 Active Clopidogrel Bisulfate 75 MG Oral Tablet (pLAVix)Indicatio ns:Coronary artery disease involving anvik heart without angina pectoris, unspecified vessel or [...] mgIndications:Surveillance for Depo-Provera contraception 150 mg IM [id number] 09/09/2019 Active documented as of this encounter [...] hepatic coma 09/09/2017 Overview: 09/13 dx [facility]. Genotype 1A. Confirmed 2021. New since 2015. Hx shared needles. Coronary artery disease involving anvik heart without angina pectoris 12/19/2016 S/P coronary [...] mid right PDA with single ROJAS [facility]. EF stable 55-60%. Lung nodules inc9mm LLL. ?infection. Consider kailyn 1mo CT. 11/14 Dr Michael LEDESMA Trazodone 100mg? Suboxone Dr Max Garcia 06/17 incarcerated 01/14 admit [facility] ODvs suicide attempt. 02/13 d/[facility] in [place]. 09/13 ICU/intubated-fungal acntge-zxdow-Wmougmp dubliniensis. , hand abscess dayna albicans MED [...] 06/23/2019 03/19/2022 Coronary artery disease invo lving anvik coronary artery of anvik heart without angina pectoris 06/23/2019 12/14/2021 Encounter for monitoring Suboxone maintenance th erapy 09/24/2018 12/14/2021 Polysubstance abuse 02/26/2018 03/19/2022 Overview: Fall 2017 rehab [place]-meth, etc will establish w/[facility] 02/2018 Suicide attempt by drug ingestion 02/20/2018 02/26/2018 Overview: gabapentin Seizure 09/09/2017 07/19/2020 Overview: 09/13 seizure noted. ?prior approx 5ya --placed on gabapentin Homeless 06/14/2017 11/27/2018 Tobacco abuse 04/15/2017 08/12/2017 Systolic murmur 03/04/2016 04/11/2021 Overview: 09/13 STEVEN [facility]-congential thickening Partial fusion aortica valve, trivial AI, no vegetation. 2012 TTE--mild-mod AR, ?bicuspid. Diverticulosis of large intestine without hemorr quyen 02/15/2016 01/18/2017 Leukocytosis 09/03/2014 12/14/2021 Overview: Chronic, s/p bone marrow biopsy Sciatica 03/11/2013 04/11/2021 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 03/31/2012 015 shelter current use of anticoagulant therapy 0 08/07/2010 12/04/2011 Overview: ICD-10 update of inactive term Anticoagulation management encounter 08/07/2010 12/04/2011 ADVANCE DIRECTIVE INFORMATION 03/02/2010 Overview: No, Advance Directive brochure offered , patient declined. Cervical incompetence, antepartum 03/02/2010 04/11/2016 Enterococcus UTI 02/16/2010 12/04/2011 Other pulmonary embolism and infarction 02/16/20 10 07/29/2014 Overview: On lovenox 1 ml q 12 hr Supervision of high-risk of swathi esquivelda 02/13/2010 08/04/2012 Overview: H/o loss at 20-22wks due to ? Incompetent cervix in 1997-no records on file, needs cervical length check 01/11: WBC elevated at 23; platelets elevated at 464, repeat CBC at [facility] 02/08: Repeat ultrasound is recommended [...] Encounter - Irvin Kramer MD - 12/13/2022 3:30 PM EDTSigned Prescriptions: Disp Refills Cyclobenzaprine HCl 10 MG Oral Tablet (Fle*60 Tab*0 Sig: TAKE 1 TABLET BY MOUTH IN THE MORNING AND BEFORE BEDTIMEAuthorizing Provider: IRVIN KRAMER--------- * Telephone Encounter - Irvin Kramer MD - 12/13/2022 3:26 PM EDTSigned Prescriptions: Disp Refills Cyclobenzaprine HCl 10 MG Oral Tablet (Fle*60 Tab*0 Sig: TAKE 1 TABLET BY MOUTH IN THE MORNING AND BEFORE BEDTIME Authorizing Provider: IRVIN KRAMER * Telephone Encounter - Demetrice Gould LPN - 12/13/2022 10:49 AM EDTPending Prescriptions: Disp Refills Cyclobenzaprine HCl 10 MG Oral Tablet [Pha*60 Tab*0 Sig: TAKE 1 TABLET BY MOUTH IN THE MORNING AND BEFORE BEDTIME * Telephone Encounter - CHANDRIKA Herzog - 12/13/2022 10:38 AM EDT Patient calling to check the status of the medication refill request. Patient advised that the Cyclobenzaprine should be able to be refilled today. * Telephone Encounter - RICHARDSON Leon - 12/12/2022 3:44 PM EDT Pt checking status, advised in progress. Thank you, Olga Lee fence erector Bar Gauger And Lubricator Tender II [facility] ([facility]) 12/12/2022,3:45 PM * Telephone Encounter - Mike Richards [facility] - 12/12/2022 1:09 PM EDTPending Prescriptions: Disp Refills Cyclobenzaprine HCl 10 MG Oral Tablet [Pha*60 Tab*0 Sig: TAKE 1 TABLET BY MOUTH IN THE MORNING AND BEFORE BEDTIME * Telephone Encounter - Mike Maurice [facility] - 12/12/2022 1:08 PM EDT [facility] is currently not authorized to approve refills for the pended medication(s) per refill protocol. Please approve if appropriate. Did you pend patient's preferred pharmacy and medication before forwarding?yes Pharmacy: [id number] Pending Prescriptions: Disp Refills Cyclobenzaprine HCl 10 MG Oral Tablet (Fl*60 Tab*0 Sig: TAKE 1 TABLET BY MOUTH IN THE MORNING AND BEFORE BEDTIME Last Visit: 08/06/2022 (in office), 12/15/2021 (telemedicine) Next Visit: 12/17/2022 If no future appointments scheduled, and last appointment is greater than a year ago, please schedule patient for a follow-up appointment Last date the medication was ordered: 11/09/22 Is this request for a controlled substance?No [...] Laina Greer CRNP [address] [place] [address] 12/17/2022 Office Visit Family Medicine Marielena Cline CRNP [address] [place] [address] 02/19/2023 Office Visit Neurology [facility] [address] [facility] [address] 02/20/2023 Office Visit Family Medicine Irvin Kramer MD [address] [place] [address] Health Maintenance Due Date Last Done Comments [...] Additional history exists CKD PHOS USE SMARTSET 46006 11/20/2021 11/20/2020, 0 09/06/2017 DISCUSS TOBACCO CESSATION (REFER TO SMARTSET #1178) 08/04/2022 08/04/2021, 08/28/2017 Influenza Vaccine (FLU shot) (#1) 2022 02/10/2021, 03/03/2020 HbA1c 2023 08/06/2022, 06/0 12/2020, 11/04/2019, Additional history exists GFR 02/21/2023 08/22/2022, 07/28, 11/03/2021, Additional history exists PAP SMEAR-ANNUAL AGES 18-100 07/26/2023 07/25/2022, 09/24/2017, 07/14/2014, Additional history exists CKD HGB USE SMARTSET 50933 08/07/202308/06, 08/06/2022, 11/03/2021, Additional history exists Mammogram [...] Advance Directives occurred with: Patient Care Teams Accounting Recruiter Relationship Specialty Start Date End Date Irvin Kramer MD [address] [place] [address] PCP - General Family Medicine 04/02/22 documented as of this encounter
--- OUTSIDE RECORDS SUMMARY | 2023-04-22 11:22 | External Medical Summary | Summary of Care ---
Author Name Unknown Organization [facility] Address [address] [place] [address] Phone [phone] Care Team Providers Care Chief Information Officer Name Role Phone Irvin Iverson MD Primary Care Provider + Reason for Visit * Reason Onset Date Comments Advice 12/15/2022 Encounter Details Date Type Department Care Team Description 12/15/2022 Telephone Family [address] [id number] Alexa Weston MD [address] [place] [address] [place] [address] Advice Allergies Active Allergy Reactions Severity Noted Date Comments Azithromycin Other (Please comment) 03/28/2004 cramps Covid-19 Mrna Vacc (Moderna) 07/24/2021 Severe SOB/ hospitalized. Eggs Or Egg-Derived Products 05/25/2022 Other reaction(s): vomiting Ensure 02/10/2007 Vomiting, diarrhea Novocain 02/15/2010 hives [place] Extract 05/25/2022 Other reaction(s): Hives Tramadol Seizure High 09/09/2012 documented as of this encounter (statuses as of 12/15/2022) Medications Medication Sig Dispensed Refills Start Date [...] than 8.0% ([facility]) Test as directed. Pt test 2 times daily. E11.9 100 Each 11 9 Active NOVOFINE 32G PEN NEEDLE 32G X 6 MM MISCIndications:Typ e 2 diabetes mellitus with hemoglobin A1c goal of less than 8.0% ([facility]) USE ONCE DAILY 100 Each 1 0 [...] HCl 25 MG Oral Tablet (Antivert)Indicatio ns:Vertigo TAKE 1 TABLET BY MOUTH THREE TIMES A DAY NEEDED FOR DIZZINESS 90 Tablet 3 2 Active oxygen IN GASIndications:Noct urnal hypoxemia Use as directed 2 L/min(Oxygen) as needed (via nasal cannula with exertion). titrate to off if SpO2 90-94%. 3 LPM via nasal cannula at bedtime and with all sleep. 1 Each 0 2 Active Spironolactone 25 MG Oral Tablet (Aldactone)Indicati ons:Fatigue, unspecified type Take by mouth 0.5 Tablets in the morning. 90 Tablet 1 2 Active medroxyPROGESTERone Acetate 150 MG/ML Intramuscular Suspension (Depo-Provera)Indic [...] s:HTN, goal below 140/80,Coronary artery disease involving [place] heart without angina pectoris, unspecified vessel or [...] the morning. 90 Tablet 1 3 Active Torsemide 20 MG Oral Tablet (Demadex) Take 1 Tablet by mouth in the morning and 1 Tablet before bedtime. 60 Tablet 5 3 Active Metoprolol Succinate ER 25 MG [...] FOR HEARTBURN. 180 Tablet 2 3 Active metFORMIN HCl 1000 MG Oral Tablet (Glucophage)Indicat ions:Type 2 diabetes mellitus with hemoglobin A1c goal of less than 8.0% (HCC) Take 1 Tablet by mouth in the morning and 1 Tablet before bedtime. With food.. 180 Tablet 0 3 Active Lisinopril 5 MG Oral Tablet [...] MORNING AND BEFORE BEDTIME 60 Tablet 0 08/17/202 3 Active Clopidogrel Bisulfate 75 MG Oral Tablet (pLAVix)Indications :Coronary artery disease involving [place] heart without angina pectoris, unspecified vessel or lesion type,S/P coronary artery stent placement TAKE 1 TABLET BY MOUTH EVERY DAY 90 Tablet 1 3 Active Acetaminophen ER 650 MG Oral Tablet Extended Release (Tylenol 8 Hour)Indications:Ac kapil nonintractable headache, unspecified headache type Take 1 Tablet by mouth every 8 hours as needed for Pain, Moderate. 30 Tablet 0 3 Active Hospital, Clinic, or Other Facility Administered Medication Ordered Dose Route Frequency Start Date End Date Status lidocaine 1 % inj 21 mgIndications:Cellulitis of arm, left,Abscess of multiple sites of upper arm 21 mg IJ Daily(AM) 09/20/2017 Active medroxyPROGESTERone acetate (DEPO-PROVERA) inj NORBERTO 150 mgIndications:Surveillance for Depo-Provera contraception 150 mg IM [id number] 09/09/2019 Active documented as of this encounter (statuses as of 12/15/2022) Active Problems Problem Noted Date Adrenal adenoma, [...] Hx shared needles. Coronary artery disease involving [place] heart without angina pectoris 12/19/2016 S/P coronary [...] HOSPITAL/[facility] ODvs suicide attempt. 02/13 d/c to [facility] in [place]. 09/13 ICU/intubated-fungal lctucz-iydmj-Qtarfwy dubliniensis. , hand abscess dayna albicans MED [...] as of this encounter (statuses as of 12/15/2022) Resolved Problems Problem Noted Date Resolved Date Hydronephrosis, right 12/06/2020 04/11/2021 Acute on chronic diastolic congestive heart fail ure 03/03/2020 08/26/2020 Major depressive disorder, recurrent, unspecifie d 12/30/2019 12/14/2021 Uncomplicated opioid dependence 06/23/2019 03/19/2022 Coronary artery disease invo lving [place] coronary artery of [place] heart without angina pectoris 06/23/2019 12/14/2021 Encounter for monitoring Suboxone maintenance th erapy 09/24/2018 12/14/2021 Polysubstance abuse 02/26/2018 03/19/2022 Overview: Fall 2017 rehab [place]-meth, etc will establish w/[facility] 02/2018 Suicide attempt [...] 03/11/2013 04/11/2021 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 03/31/2012 015 care home current use of anticoagulant therapy 0 [...] as of this encounter (statuses as of 12/15/2022) Immunizations Name Administration Dates Next Due COVID-19 [...] encounter Miscellaneous Notes * Telephone Encounter - Alexa Weston MD - 12/15/2022 9:41 PM EDT Received a tiger text at 9:35pm -msg: pt was told she can not take Advil and pt would like to know what she can take for SUTTON Called the pt Pt is having frontal SUTTON -denied any fever or change in vision -she stated that she only had Advil at home -when I recommended Tylenol -- pt stated that she does not have Tylenol at home therefore would like something else to send to her pharmacy -Tylenol 650mg sent to pharmacy documented in this encounter Plan of Treatment Upcoming Encounters Date Type Specialty Care Team Description 12/17/2022 Office Visit Cardiology Laina Greer CRNP [address] [place] [address] 12/17/2022 Office Visit Family Medicine Marielena Cline CRNP [address] [place] [address] 02/19/2023 Office Visit Neurology Gloria Florez PA-C [address] [place] [address] 02/20/2023 Office Visit Family Medicine Irvin Iverson MD [address] [place] [address] Health Maintenance Due Date Last Done Comments [...] Additional history exists CKD PHOS USE SMARTSET 36295 11/20/2021 11/20/2020, 0 09/06/2017 DISCUSS TOBACCO CESSATION (REFER TO SMARTSET #3291) 08/04/2022 08/04/2021, 08/28/2017 Influenza Vaccine (FLU shot) (#1) 2022 02/10/2021, 03/03/2020 HbA1c 2023 08/06/2022, 06/0 12/2020, 11/04/2019, Additional history exists GFR 02/21/2023 08/22/2022, 07/28, 11/03/2021, Additional history exists PAP SMEAR-ANNUAL AGES 18-100 07/26/2023 07/25/2022, 09/24/2017, 07/14/2014, Additional history exists CKD HGB USE SMARTSET 83422 08/07/202308/06, 08/06/2022, 11/03/2021, Additional history exists Mammogram [...] as of this encounter Visit Diagnoses Diagnosis Acute nonintractable headache, unspecified headache type- Primary documented in this encounter Advance Directives Latest Code Status on File Code Status Date Activated Date Inactivated Comments Full Code 02/15/2010 3:36 AM 02/16/2010 9:42 PM Thi s order reflects the patients wishes and were consensually agreed upon. Question Answer Comments Discussion of Advance Directives occurred with: Patient Care Teams Chief Information Officer Relationship Specialty Start Date End Date Irvin Iverson MD [address] [place] [address] PCP - General Family Medicine 04/02/22 documented as of this encounter
--- OUTSIDE RECORDS SUMMARY | 2023-04-22 11:22 | External Medical Summary | Summary of Care ---
Author Name Unknown Organization [facility] Address [address] [place] [address] Phone [phone] Care Team Providers Care Bicycle Rental Clerk Name Role Phone Irvin Iverson MD Primary Care Provider + Reason for Visit * Reason Onset Date Comments Hospital Follow-Up 12/12/2022 [facility] 12/11 Encounter Details Date Type Department Care Team Description 12/12/2022 Telephone [facility] [address] [place] [address] Rebecca Morales, RN Hospital Follow-Up ([facility] 12/11) Allergies Active Allergy Reactions Severity Noted Date Comments Azithromycin Other (Please comment) 03/28/2004 cramps Covid-19 Mrna Vacc (Moderna) 07/24/2021 Severe SOB/ hospitalized. Eggs Or Egg-Derived Products 05/25/2022 Other reaction(s): vomiting Ensure 02/10/2007 Vomiting, diarrhea Novocain 02/15/2010 hives [place] Extract 05/25/2022 Other reaction(s): Hives Tramadol Seizure [...] than 8.0% ([facility]) Test as directed. Pt test 2 [...] Oral Tablet (pLAVix)Indication s:Coronary artery disease involving [place] ira heart without angina pectoris, unspecified vessel or lesion type,S/P coronary artery stent placement TAKE 1 TABLET BY MOUTH EVERY DAY 90 Tablet 1 08/19/2022 Active Atorvastatin Calcium 80 MG Oral Tablet (Lipitor)Indicatio ns:HTN, goal below 140/80,Coronary artery disease involving [place] ira heart without angina pectoris, unspecified vessel or [...] mgIndications:Surveillance for Depo-Provera contraception 150 mg IM [id number] 09/09/2019 Active documented as of this encounter [...] Hx shared needles. Coronary artery disease involving [place] ira heart without angina pectoris 12/19/2016 S/P coronary [...] 01/14 admit [facility] ODvs suicide attempt. 02/13 d/c to [facility] in [place]. 09/13 ICU/intubated-fungal axvclk-gzumw-Qesroxm dubliniensis. , hand abscess dayna albicans MED [...] 06/23/2019 03/19/2022 Coronary artery disease invo lving [place] ir[place] coronary artery of [place] ira heart without angina pectoris 06/23/2019 12/14/2021 Encounter for monitoring Suboxone maintenance th erapy 09/24/2018 12/14/2021 Polysubstance abuse 02/26/2018 03/19/2022 Overview: Fall 2017 rehab [facility]-meth, etc will establish w/[facility] 02/2018 Suicide attempt by drug ingestion 02/20/2018 02/26/2018 Overview: gabapentin Seizure 09/09/2017 07/19/2020 Overview: 09/13 seizure noted. ?prior approx 5ya --placed on gabapentin Homeless 06/14/2017 11/27/2018 Tobacco abuse 04/15/2017 08/12/2017 Systolic murmur 03/04/2016 04/11/2021 Overview: 09/13 [facility]EVEN [facility]-congential thickening Partial fusion aortica valve, trivial AI, no vegetation. 2012 TTE--mild-mod AR, ?bicuspid. 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 Supervision of high-risk of swathi miguel sasha 01/11/2010 02/08/2010 Overview: H/o loss at [...] encounter Miscellaneous Notes * Telephone Encounter - Rebecca Morales RN - 12/13/2022 10:19 AM EDT Transitions of Care Note Reason for Referral:Recent Admission Phone visit for follow up: IRAM Admitted to: [facility], Date: 12/04/22 Discharged to: home, Date: 12/11/22 Diagnosis driving hospitalization: severe sepsis with shock secondary to pneumonia Attempted to call pt. No answer/voicemail * Telephone Encounter - Rebecca Morales RN - 12/12/2022 1:05 PM EDT Transitions of Care Note Reason for Referral:Recent Admission Phone visit for follow up: IRAM Admitted to: [facility], Date: 12/04/22 Discharged to: home, Date: 12/11/22 Diagnosis driving hospitalization: severe sepsis with shock secondary to pneumonia Attempted to call pt. No answer/voicemail. Will try again later documented in this encounter Plan of Treatment Upcoming Encounters Date Type Specialty Care Team Description 12/17/2022 Office Visit Cardiology Laina Greer CRNP [address] [place] [address] 12/17/2022 Office Visit Family Medicine Marielena Cline CRNP [address] [place] [address] 02/19/2023 Office Visit Neurology Gloria Florez PA-C [address] [facility], [place] [address] 02/20/2023 Office Visit Family Medicine Irvin Iverson MD [address] [place] [address] Health Maintenance Due Date Last Done Comments [...] Additional history exists CKD PHOS USE SMARTSET 59751 11/20/2021 11/20/2020, 0 09/06/2017 DISCUSS TOBACCO CESSATION (REFER TO SMARTSET #3291) 08/04/2022 08/04/2021, 08/28/2017 Influenza Vaccine (FLU shot) (#1) 2022 02/10/2021, 03/03/2020 HbA1c 2023 08/06/2022, 06/12/2020, 11/04/2019, Additional history exists GFR 02/21/2023 08/22/2022, 04, 11/03/2021, Additional history exists PAP SMEAR-ANNUAL AGES 18-100 07/26/2023 07/25/2022, 09/24/2017, 07/14/2014, Additional history exists CKD HGB USE SMARTSET 12150 08/07/202308/06, 08/06/2022, 11/03/2021, Additional history exists Mammogram [...] Advance Directives occurred with: Patient Care Teams Bicycle Rental Clerk Relationship Specialty Start Date End Date Irvin Iverson MD [address] [place] [address] PCP - General Family Medicine 04/02/22 documented as of this encounter
--- OUTSIDE RECORDS SUMMARY | 2023-04-22 11:22 | External Medical Summary ---
Author Name Unknown Address Unknown Organization K01:[facility] [place] [address] [place] [address] Laboratory Report Ordering Provider Test Date Status JA SAMANO 12/17/2022 15:24:33 Final Observation Date Value Abnormality Reference (Units ) Status Vitamin B12 12/17/2022 15:24:33 [id number] (pg/mL) Final Performing Location [facility] [place] [address] [place] [address]
[2023-04-22 11:40] LABS: iSTAT Creatinine 2.4 mg/dl (0.6-1.3); iSTAT Hemoglobin 12.2 g/dl (12.0-16.0); iSTAT Ionized Calcium 1.03 mmol/l (1.12-1.32)
--- NOTE | 2023-04-22 11:40 | XRay Report ---
XR chest 1V portable CLINICAL HISTORY: Sepsis TECHNIQUE: Single frontal radiograph of the chest was obtained. Comparison: Comparison is made to chest radiograph 12/07/2022 FINDINGS: No lines and tubes are seen. Cardiomegaly is noted. Multifocal airspace opacities are seen. No eviden ce of pleural effusion or pneumothorax. IMPRESSION: Multifocal airspace opacities may represent atelectasis, pneumonia, and/or aspiration. ACT 112: Negative or not required by law. Electronically signed by: Moi Ring M.D. 04/22/2023 11:38 AM
[2023-04-22] MEDS ORDERED: NOREPINEPHRINE/D5W 4 MG/250 ML IV ONE (11:51)
[2023-04-22 11:58] LABS: iSTAT Arterial Blood Gas HCO3 12 meg/L (19-24); iSTAT Arterial Blood Gas pCO2 35 mmHg (35-46); iSTAT Arterial Blood Gas pH 7.15 (7.35-7.45); iSTAT Arterial Blood Gas pO2 54 mmHg (80-95); iSTAT Carbon Dioxide 13 mmol/L (24-31); iSTAT Hematocrit 33 % (37-47); iSTAT Hemoglobin 11.2 g/dl (12.0-16.0); iSTAT Potassium 4.9 mmol/L (3.3-5.0); iSTAT Sodium 131 mmol/L (135-144)
[2023-04-22] MEDS ORDERED: RAPID SEQUENCE INDUCTION BAG ONE (11:59)
[2023-04-22 12:00] LABS: Hematocrit (blood only) 34.1 % (37.0-47.0); Hemoglobin 10.5 g/dl (12.0-16.0); Mean Corpuscular Hemoglobin 26.9 pg (25.0-34.0); Mean Corpuscular Hgb Conc 30.8 g/dL (32.0-36.0); Mean Corpuscular Volume 87.4 fL (80.0-100.0); Mean Platelet Volume 11.9 fL (9.4-12.4); Platelet Count 280 K/uL (130-400); RDW Coefficient of Variation 18.2 % (11.5-14.5); RDW Standard Deviation 58.4 fL (36.4-46.3); White Blood Count 37.59 K/ul (4.8-10.8)
[2023-04-22] MEDS ORDERED: STAT IV Infusion **Titration per Protocol STA ×3 (12:01→16:50)
--- NOTE | 2023-04-22 12:08 | Critical Care Consultation ---
Date of Consultation April 22, 2023 Assessment & Plan (1) Acute respiratory failure: (2) Sepsis: (3) Polysubstance abuse: (4) Seizure disorder: (5) Multifocal pneumonia: (6) HTN (hypertension): (7) HLD (hyperlipidemia): (8) Aortic stenosis: (9) Depression: (10) AJIT (acute kidney injury): (11) Coronary artery disease: (12) High anion gap metabolic acidosis: Plan Reason Critically Ill: 43-year-old female past medical history of polysubstance abuse on Suboxone, aortic stenosis moderate coronary artery disease presented to hospital with shortness of breath Neuro - [facility] ICU: Unable to assess Fentanyl for sedation Patient was moving all her extremities and talking when presented to the ED. No indication for CT of the head right now U tox was negative for everything except for ecstasy, ecstasy could be falsely positive in somebody was taking escitalopram. --History of depression On escitalopram along with trazodone at home Cardiac - --Elevated troponin Likely type II IN Continue trend EKG and troponin EKG 04/22/2023, 12:42 PM: Sinus tachycardia, normal axis, no ST-T wave changes appreciated -- Coronary artery disease On Plavix and aspirin along with atorvastatin at home --Pulmonary hypertension Type II with moderate aortic stenosis On spironolactone, metoprolol succinate 25 mg as well as torsemide at home Right heart cath 12/10/2022: Interestingly showed normal wedge of 9 as well as normal PA pressure RA 2 RV 28/6 PA. 23/10 (14) PAWP 9 LV 9 2D echo 12/05/2022: EF greater than 70%, mild concentric LVH, mild to moderate pulmonary hypertension, PASP 50 mmHg, mild to moderate aortic stenosis, RV normal in size and function Respiratory - -- VDRF with acute hypoxic respiratory failure Factorial Continue with ventilatory support Keep RASS -1 Respiratory bio fire negative for everything BNP 198 Nasal MRSA negative Follow-up urine Legionella Patient did have bronchoscopy on the previous admission which was 12/05/2022, neutrophilic and monocytic, bronc cultures were negative for everything, lavage cytology was negative except for chronic inflammatory cells Beta D glucan was negative at that time --Abnormal chest CT 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 UA negative for ketones Follow up serum osm, urine osm, urine lytes Monitor -- AJIT on CKD Follow-up urine lites Monitor BUN/creatinine Avoid nephrotoxic medications Strict ins and outs ENDO - --Diabetes type 2 ICU hypoglycemia protocol HEME - -- Normocytic anemia Monitor H&H ID - -- Leukocytosis Questionable pneumonia, UA clean Continue with broad antibiotic Follow-up culture and sputum culture ESR 36, CRP 19.8 Procalcitonin 4.33 --Prophylaxis VTE: Heparin GI: Pantoprazole Lines: Right IJ, left radial, positive Mayfield, positive ETT Diet: Tube feeds Plan: Strict in and out Bedside POCUS showed collapsible RV, good ejection fraction, no pericardial effusion. B-lines appreciated bilaterally posteriorly, mild B-lines appreciated anteriorly especially on the left side. No pleural effusion Although the patient's BNP was elevated. I will give the patient 1 L of Plasma- Lyte Strict in and out. Metabolic acidosis is most likely from lactic acidosis. Follow-up urine lites for non-anion gap component. Will consider bicarb if there is no improvement Continue to hyperventilate the patient right now. Repeat ABG Continue with broad-spectrum antibiotics. Okay to discontinue vancomycin given nasal MRSA negative Whether to consider bronchoscopy again will be decided based on how patient progresses Azithromycin for atypical coverage. QTc 428 Patient's CBC with differential has been showing high percentage of immature granulocytes. Will see if they are still elevated tomorrow then we will get a pathology consult I have personally spent 68 minutes of critical care time in the direct management of this patient. This is a life/limb threatening event. This includes time spent evaluating patient, direct bedside care, chart review, placing orders, interpretation of diagnostic studies, discussion with consultants, patient, and family members, as well as other required patient management activities. This time is exclusive of all separately billable procedures, and teaching time and separate from and in addition to any other critical care service time. History of Present Illness History of Present Illness 43-year-old female presented to hospital with complaints of shortness of breath Past medical history: Moderate to severe aortic stenosis, coronary artery disease, seizure disorder, polysubstance abuse ICU was consulted because of hypotension and hypoxia Case was discussed on the phone with Dr. Jernigan. As per Dr. Jernigan patient was awake alert, moving all extremities. Making sense when she came to the hospital she was very tachypneic in the hide 30s to low 40s requiring BiPAP that is when the plan was made to intubate her. At the time of examination patient was on 80% FiO2, saturating 98%, respirate was 26 and she was breathing with the vent Peak pressure was 32. Tmax 37 Patient was afebrile. Her systolic blood pressure was in the 130s without any vasopressors. Patient had gotten antibiotics in the ED Rest of the history obtained from previous chart Allergies Allergy/AdvReac Type Severity Reaction Status Date / Time lidocaine Allergy Intermediate HIVES Verified 07/10/21 21:33 procaine Allergy Intermediate HIVES Verified 07/10/21 21:33 Penicillins Allergy Mild HAD NO Verified 07/10/21 21:33 PROBLEM WITH ZOSYN strawberry Allergy Mild HIVES Verified 07/10/21 21:33 mushroom Allergy Unknown Unknown Verified 12/11/22 15:32 COVID-19 (SARS-CoV-2) AdvReac Severe stopped Verified 12/05/22 20:06 vaccine, zoraida breathing next day cephalexin AdvReac Intermediate YEAST Verified 07/10/21 21:33 INFECTIONS tramadol AdvReac Intermediate SEIZURES Verified 07/10/21 21:33 azithromycin AdvReac Mild STOMACH Verified 07/10/21 21:33 PAIN Home Medications Medication Instructions Recorded Confirmed Type albuterol sulfate 2.5 mg/3 mL 2.5 mg inhalation Q4 PRN 07/10/21 12/04/22 History (0.083 %) solution for nebulization WHEEZE/COUGH albuterol sulfate 90 mcg/actuation 2 puff inhalation Q4 PRN cough or 07/10/21 12/04/22 History aerosol inhaler wheezing atorvastatin 80 mg tablet 80 mg PO QAM 07/10/21 12/04/22 History buspirone 15 mg tablet 15 mg PO AMHS 07/10/21 12/04/22 History clopidogrel 75 mg tablet 75 mg PO DAILY 07/10/21 12/04/22 History cyclobenzaprine 10 mg tablet 10 mg PO BID 07/10/21 12/04/22 History escitalopram oxalate 20 mg tablet 20 mg PO QAM 07/10/21 12/04/22 History levetiracetam 500 mg tablet 500 mg PO AMHS 07/10/21 12/04/22 History lisinopril 5 mg tablet 5 mg PO QAM 07/10/21 12/04/22 History medroxyprogesterone 150 mg/mL 150 mg IM .Q3MO 07/10/21 12/04/22 History intramuscular suspension metformin 1,000 mg tablet 1,000 mg PO BID 07/10/21 12/04/22 History metoprolol succinate 25 mg 25 mg PO DAILY 07/10/21 12/04/22 History tablet,extended release 24 hr polyethylene glycol 3350 17 gram 17 g PO DAILY PRN Constipation 07/10/21 12/04/22 History oral powder packet (Miralax) potassium chloride 20 mEq 20 meq PO QAM 07/10/21 12/04/22 History tablet,extended release(part/cryst) (Klor-Con M) torsemide 20 mg tablet 20 mg PO AMHS 07/10/21 12/04/22 History trazodone 50 mg tablet 75 mg PO HS 07/10/21 12/04/22 History aspirin 81 mg tablet,delayed 81 mg PO DAILY 03/03/22 12/04/22 History release famotidine 20 mg tablet 20 mg PO BID PRN Heartburn 03/03/22 12/04/22 History fluticasone furoate 200 1 inh inhalation QAM 03/03/22 12/04/22 History mcg-vilanterol 25 mcg/dose inhalation powder (Breo Ellipta) gabapentin 300 mg capsule 300 mg PO TID 03/03/22 12/04/22 History nitroglycerin 0.4 mg sublingual 0.4 mg sublingual DAILY PRN Chest 03/03/22 12/04/22 History tablet Pain buprenorphine 8 mg-naloxone 2 mg 1 film sublingual DAILY 12/04/22 12/04/22 History sublingual film Patient History Medical History (Updated 04/22/23 @ 14:37 by Charlette De Jesus MD, [facility]) Acute renal failure Polysubstance abuse Methamphetamine abuse Cannabis abuse Opiate abuse, continuous Anemia, iron deficiency Aortic stenosis Aortic regurgitation Hx of drug abuse Asthma exacerbation Chronic diastolic CHF (congestive heart failure) History of drug abuse Depression GERD (gastroesophageal reflux disease) Seizure disorder Hepatosplenomegaly History of DVT (deep vein thrombosis) Asthma History of renal calculi Hepatitis C "Antibiotic screen positive, quantitative RNA positive 08/30/17" Hypertension Diabetes mellitus, type 2 Coronary artery disease Premature atherosclerotic coronary disease s/p 2-vessel coronary intervention 10/2016 receiving ROJAS to the ramus intermedius and distal circumflex for NTEMI, Repeat catheterization 02/23/2020, s/p PCI with ROJAS to the RCA PDA on 02/23/20 Surgical History S/P coronary artery stent placement History of lumbar spinal fusion Hx of tonsillectomy History of carpal tunnel surgery History of cardiac cath 2017- 1 ROJAS to ramus, 2 ROJAS to L circumflex. 40-50% plaque to LAD 2018- distal disease (80%) within PDA Status post cholecystectomy Family History Other Diabetes Heart disease Hypertension Kidney stones Seizures Social History Smoking Status: Current every day smoker Tobacco Type: Cigarettes Cigarettes Per Day: <20; Second Hand Exposure: Yes; Do You Dip or Chew Tobacco: No; Hx Alcohol Use: Yes Alcohol type: beer, wine and hard liquor Hx Substance Use: Yes Non-Prescribed Medications: Heroin, IV Drugs and Methamphetamines Last Used Substance: Unknown Last Used Substance Other:: 4 years ago Substance Use Type Other:: 3 years drug free per record Preferred Language: Maltese Communication Ability: Unable Communication Ability Comment: Patient is intubated and sedated Visual Impairment: No Limitations Hearing Ability: Normal Synoptic Meteorologist Required: No Beliefs That Will Affect Care: None marital status: Single Current Living Situation: Significant Other Current Living Situation Comment: Unknown due to pt condition How many Children do You have: 1 Feels Safe at Home: Yes Assistive Devices: Oxygen - at Night and Walker Review of Systems 2 Review of Systems: Unobtainable due to endotracheal tube Physical Exam 2 Physical Exam: Constitutional: No acute distress HEENT: PERRLA Respiratory system: Decreased air entry bilaterally, no wheeze, minimal rhonchi especially on the left side, positive crackles bilateral lower lobes CVS: S1-S2 positive, positive 3 out of 6 systolic murmur appreciated best at apex, tachycardia Abdomen: Soft, nontender, nondistended, positive bowel sounds x4 Extremities: +2 pulses bilaterally radialis/ dorsalis pedis, no cyanosis, minimal pitting edema bilateral lower extremity Neuro: Intubated, sedated, trying to move her lower extremities Psych: Unable to assess G/U: Positive May[place] Skin: no rashes, warm and dry Lymphatic: no cervical or axillary lymphadenopathy Results & Data Results & Data Vital Signs (Past 12 Hours) Vital Signs Temp Pulse Resp BP BP Pulse Ox O2 Del Method 04/22/23 11:53 72/58 L 04/22/23 11:50 124 H 41 H 04/22/23 11:50 43/31 L 04/22/23 11:50 96/54 L 04/22/23 11:47 BiPAP 04/22/23 11:47 33 H 04/22/23 11:47 98 BiPAP 04/22/23 11:47 37 C 135 H 35 H 96/54 L 97 BiPAP 04/22/23 11:45 79/36 L 04/22/23 11:45 129 H 41 H 98 04/22/23 11:42 129 H 36 H 99 04/22/23 11:42 70/53 L 04/22/23 11:40 130 H 35 H 91 04/22/23 11:30 131 H 28 H 100 04/22/23 11:20 135 H 44 H 100 04/22/23 11:19 138 H 04/22/23 11:15 138 H 36 H 100 Laboratory Results 04/22/23 11:38 Coding Level of Care Code 10431 CRITICAL CARE 1ST 30-74M Diagnoses Acute respiratory failure J96.00 Sepsis A41.9 Polysubstance abuse F19.10 Seizure disorder G40.909 Multifocal pneumonia J18.9 HTN (hypertension) I10 HLD (hyperlipidemia) E78.5 Aortic stenosis I35.0 Depression, unspecified depression type F32.9 Depression Type: unspecified AJIT (acute kidney injury) N17.9 Coronary artery disease I25.10 High anion gap metabolic acidosis E87.29 (9) Depression Depression Type: unspecified Qualified Code(s): F32.9 - Major depressive disorder, single episode, unspecified
[2023-04-22] MEDS ORDERED: fentaNYL citrate PF 100 MCG/2 ML VIAL IV STA (12:11)
[2023-04-22] MEDS ORDERED: MIDAZOLAM HCL 1 MG/ML 2ML VIAL IV STA (12:11)
[2023-04-22 12:13] LABS: Albumin Level 3.4 gm/dl (3.4-5.0); BUN Creatinine Ratio 15.4 (10-20); Bilirubin Direct 0.2 mg/dl (0-0.2); Bilirubin,Total 0.6 mg/dl (0.2-1.0); Calcium 8.5 mg/dl (8.6-10.3); Creatinine Clr Calc Pharmacy 30.8 ml/min; Est GFR (African American) 29.2 ml/min; Est GFR (Non-African American) 25.2 ml/min; Magnesium 1.8 mg/dl (1.7-2.4); Potassium 5.1 mmol/L (3.5-5.1); Total Protein 6.4 gm/dl (6.0-8.3)
[2023-04-22] MEDS ORDERED: VANCOMYCIN CONSULT ACTIVE PRN (12:15)
[2023-04-22] MEDS ORDERED: VANCOMYCIN HCL 1,500 MG in SODIUM CHLORIDE 0.9% 500 ML IV ONE (12:15)
[2023-04-22] MEDS ORDERED: CEFEPIME 2,000 MG/20 ML VIAL IV STA (12:15)
[2023-04-22] MEDS: NOREPINEPHRINE/D5W 4 MG/250 ML PLCT IV SCH (12:16)
[2023-04-22 12:22] LABS: INR 1.2 (0.9-1.1); Partial Thromboplastin Time 29 Seconds (21-31)
[2023-04-22] MEDS: fentaNYL citrate 2,500 MCG/250 ML BAG IV SCH (12:25)
[2023-04-22 12:26] LABS: Troponin I High Sensitivity 114.7 pg/ml (0-14)
--- NOTE | 2023-04-22 12:34 | XRay Report ---
XR chest 1V portable CLINICAL HISTORY: ett placement TECHNIQUE: Single frontal radiograph of the chest was obtained. Comparison: Comparison is made to chest radiograph 04/22/2023 FINDINGS: Endotracheal tube terminates 2.6 cm from the misti. Enteric tube tip and side port lie below the ric phragm. Cardiomegaly is noted. Multifocal airspace opacities are seen. No evidence of pleural effusio n or pneumothorax. IMPRESSION: Satisfactory appearance of endotracheal and enteric tubes. Stable multifocal airspace opacities. ACT 112: Negative or not required by law. Electronically signed by: Moi Ring M.D. 04/22/2023 12:32 PM
[2023-04-22 12:39] LABS: Acanthocytes 1+; Basophils # (auto) 0.16 K/uL (0.00-0.20); Basophils % (auto) 0.4 %; Echinocytes 2+; Eosinophils # (auto) 0.01 K/uL (0.00-0.50); Immature Granulocytes # (auto) 0.38 K/uL (0.01-0.20); Lymphocytes # (auto) 2.07 K/uL (1.20-3.40); Lymphocytes % (auto) 5.5 %; Monocytes # (auto) 1.07 K/uL (0.11-0.59); Monocytes % (auto) 2.8 %; Neutrophils % (auto) 90.3 %; Polychromasia 1+
[2023-04-22] MEDS ORDERED: VANCOMYCIN HCL 2,000 MG in SODIUM CHLORIDE 0.9% 500 ML IV ONE (12:45)
[2023-04-22 12:49] LABS: C Reactive Protein 19.89 mg/dl (0-0.5)
[2023-04-22 12:50] LABS: Adenovirus PCR Not Detected (NotDetected); Bordetella parapertussis PCR Not Detected (NotDetected); Bordetella pertussis PCR Not Detected (NotDetected); Chlamydia pneumoniae PCR Not Detected (NotDetected); Coronavirus 229E PCR Not Detected (NotDetected); Coronavirus CoV-2 (COVID19)PCR Not Detected (NotDetected); Coronavirus HKU1 PCR Not Detected (NotDetected); Coronavirus NL63 PCR Not Detected (NotDetected); Coronavirus OC43PCR Not Detected (NotDetected); Human Metapneumovirus PCR Not Detected (NotDetected); Influenza A PCR Not Detected (NotDetected); Influenza B PCR Not Detected (NotDetected); Mycoplasma pneumoniae PCR Not Detected (NotDetected); Parainfluenza Virus 1 PCR Not Detected (NotDetected); Parainfluenza Virus 2 PCR Not Detected (NotDetected); Parainfluenza Virus 3 PCR Not Detected (NotDetected); Parainfluenza Virus 4 PCR Not Detected (NotDetected); Respiratory Syncytial VirusPCR Not Detected (NotDetected); Rhinovirus/Enterovirus PCR Not Detected (NotDetected)
--- NOTE | 2023-04-22 12:50 | History & Physical Report ---
Date of Service April 22, 2023 Assessment & Plan (1) Acute respiratory failure: (2) Septic shock: Plan: Sepsis with shock and respiratory failure likely related to pneumonia. Cont ICU vent management, broad abx, pressor support while awaiting culture results and clinical improvement. Patient is a smoker increasing her risk for pneumonia. (3) Multifocal pneumonia: Plan: ICU/pulm worked up significantly with bronch last admission. She appears to have a new, bacterial process. Biofire is negative. Continue on broad spectrum abx. (4) Acute renal failure: Plan: Initial creatinine was 06/25, which is improving closer to baseline with treatment. Cont to trend BMP (5) Demand ischemia: Plan: Likely the cause for elevated troponin is demand ischemia in the setting shock with known CAD disease and valvulopathy. (6) Chronic diastolic CHF (congestive heart failure): Plan: chronic, low normal BNP. Pt appears euvolemic to dry. Hold torsemide in setting of shock. Cautious fluid administration in the ER. (7) Aortic stenosis: Plan: known history of this. Cont to monitor with yearly echocardiogram. Followed by cardiology. (8) Depression: Plan: chronic, stable. Cont escitalopram per home regimen. Also takes buspar, flexeril and trazodone at night which was recently increased. (9) Coronary artery disease: Plan: chronic, stable. elevated trop is likely related to demand ischemia in septic shock. Cont home meds when able to tolerate PO. (10) Diabetes mellitus, type 2: Plan: chronic, stable. A1C reflects good overall control. Hold metformin and utilize insulin for glucose management while hospitalized. (11) Hypertension: Plan: chronic, currently in shock state. Hold all antihypertensives. (12) Polysubstance abuse: Plan: history of this, currently taking suboxone, Lexapro, gabapentin, buspar, flexeril and trazodone, also. (13) Anemia, iron deficiency: Plan: chronic, present but at her baseline. Likely related to chronic disease. Cont to monitor. Hold iron while hospitalized to avoid unwanted side effects. (14) Seizure disorder: Plan: chronic, stable. Cont home meds in IV form while intubated. RESTART HOME ORAL MEDS ONCE ABLE. DVT proph: heparin GI proph: protonix Full Code Dispo- ICU I spent a total of75 minutes coordinating, documenting, and providing care for this patient excluding time spent in the performance of separately billed services Zina Smith DO [facility] Hospitalist History of Present Illness Chief Complaint: shortness of breath Primary Care Provider: Irvin Iverson MD 43 yo F presented with acute shortness of breath. Hypoxic to 20% on room air per ER staff and was A&O x 3. Unable to assess history prior to intubation, however. Recent hospitalization in November with a similar presentation requiring intubation and pressor support temporarily. Respiratory failure at that time thought most likely 2/2 pulmonary edema. She did undergo a cardiac cath on 12/10/22 and nonobstructive disease with patent prior stents was seen. Since discharge from the hospital in November 2022, she was seen by [facility] on 12/17. The torsemide that was stopped was restarted at a lower dose of 20mg PO daily (she was prev on 20mg BID). She was continued on GDMT including lisinopril 5mg daily, metop succ 25mg daily, spironolactone 12.5mg daily. She was also continued on DAPT with ASA/Plavix 75 and atorvastatin 80mg daily. Regarding her CAD, there was a note per Dr. Hay-Medical management recommended of chronic mid LAD bifurcation lesion with consideration of PCI to the LAD should refractory angina occur. She has known and repeat echo was recommended in one year (performed during Nov 2022 admission). She did not see pulmonology. She came back to her PCP on 04/10/23 with rpeorts of increased sciatica pain causing difficulty walking and nausea wtih poor appetite. Breathing was reportedly "ok" at that time. Per ER physician she arrived today and was able to answer some questions, however, heart rate was in the 130s in sinus rhythm, blood pressure was in the 70s systolic and she was oxygenating poorly. She was placed on oxygen supplementation and quickly switched to BiPAP. Chest x-ray revealed bilateral fluffy infiltrates suggestive of possible pneumonia. Creatinine was elevated to 2.4 and [id number] VBG revealed a pH of 7.15. She was still tachypneic with respiratory rate in the 40s despite ongoing BiPAP and was becoming hypotensive. Saline bolus was ordered however there was a concern with overload with loading her given her history of aortic stenosis. She was started on Levophed, intubated and admitted to the ICU. White blood cell count was 34 K with evidence of anemia. Sodium was 130, potassium 5.6, bicarb 16, BUN 34, creatinine 1.93 lactate was 10.5. CRP was 19.9, troponin was elevated at 115, procalcitonin was elevated. Her clinical picture was consistent with a bacterial pneumonia. I attempted to contact her by phone today but was unable to connect successfully. The patient was continued on broad-spectrum antibiotics. Allergies Allergy/AdvReac Type Severity Reaction Status Date / Time lidocaine Allergy Intermediate HIVES Verified 07/10/21 21:33 procaine Allergy Intermediate HIVES Verified 07/10/21 21:33 Penicillins Allergy Mild HAD NO Verified 07/10/21 21:33 PROBLEM WITH ZOSYN strawberry Allergy Mild HIVES Verified 07/10/21 21:33 mushroom Allergy Unknown Unknown Verified 12/11/22 15:32 COVID-19 (SARS-CoV-2) AdvReac Severe stopped Verified 12/05/22 20:06 vaccine, zoraida breathing next day cephalexin AdvReac Intermediate YEAST Verified 07/10/21 21:33 INFECTIONS tramadol AdvReac Intermediate SEIZURES Verified 07/10/21 21:33 azithromycin AdvReac Mild STOMACH Verified 07/10/21 21:33 PAIN Home Medications Medication Instructions Recorded Confirmed Type albuterol sulfate 2.5 mg/3 mL 2.5 mg inhalation Q4 PRN 07/10/21 04/22/23 History (0.083 %) solution for nebulization WHEEZE/COUGH albuterol sulfate 90 mcg/actuation 2 puff inhalation Q4 PRN cough or 07/10/21 04/22/23 History aerosol inhaler wheezing atorvastatin 80 mg tablet 80 mg PO QAM 07/10/21 04/22/23 History buspirone 15 mg tablet 15 mg PO AMHS 07/10/21 04/22/23 History clopidogrel 75 mg tablet 75 mg PO DAILY 07/10/21 04/22/23 History cyclobenzaprine 10 mg tablet 10 mg PO BID 07/10/21 04/22/23 History escitalopram oxalate 20 mg tablet 20 mg PO QAM 07/10/21 04/22/23 History levetiracetam 500 mg tablet 500 mg PO AMHS 07/10/21 04/22/23 History lisinopril 5 mg tablet 5 mg PO QAM 07/10/21 04/22/23 History metformin 1,000 mg tablet 1,000 mg PO BID 07/10/21 04/22/23 History metoprolol succinate 25 mg 25 mg PO DAILY 07/10/21 04/22/23 History tablet,extended release 24 hr polyethylene glycol 3350 17 gram 17 g PO DAILY PRN Constipation 07/10/21 04/22/23 History oral powder packet (Miralax) potassium chloride 20 mEq 20 meq PO QAM 07/10/21 04/22/23 History tablet,extended release(part/cryst) (Klor-Con M) torsemide 20 mg tablet 20 mg PO DAILY 07/10/21 04/22/23 History trazodone 50 mg tablet 100 mg PO HS 07/10/21 04/22/23 History aspirin 81 mg tablet,delayed 81 mg PO DAILY 03/03/22 04/22/23 History release famotidine 20 mg tablet 20 mg PO BID PRN Heartburn 03/03/22 04/22/23 History fluticasone furoate 200 1 inh inhalation QAM 03/03/22 04/22/23 History mcg-vilanterol 25 mcg/dose inhalation powder (Breo Ellipta) gabapentin 300 mg capsule 600 mg PO BID@0800,1400 03/03/22 04/22/23 History nitroglycerin 0.4 mg sublingual 0.4 mg sublingual DAILY PRN Chest 03/03/22 04/22/23 History tablet Pain buprenorphine 8 mg-naloxone 2 mg 1 film sublingual DAILY 12/04/22 04/22/23 History sublingual film ferrous sulfate 325 mg (65 mg 325 mg PO Q2D 04/22/23 04/22/23 History iron) tablet gabapentin 300 mg capsule 900 mg PO HS 04/22/23 04/22/23 History meclizine 25 mg tablet 25 mg PO TID PRN Dizziness 04/22/23 04/22/23 History Past Med/Surg History Medical History Acute renal failure Polysubstance abuse Methamphetamine abuse Cannabis abuse Opiate abuse, continuous Anemia, iron deficiency Aortic stenosis Aortic regurgitation Hx of drug abuse Asthma exacerbation Chronic diastolic CHF (congestive heart failure) History of drug abuse Depression GERD (gastroesophageal reflux disease) Seizure disorder Hepatosplenomegaly History of DVT (deep vein thrombosis) Asthma History of renal calculi Hepatitis C "Antibiotic screen positive, quantitative RNA positive 08/30/17" Hypertension Diabetes mellitus, type 2 Coronary artery disease Premature atherosclerotic coronary disease s/p 2-vessel coronary intervention 10/2016 receiving ROJAS to the ramus intermedius and distal circumflex for NTEMI, Repeat catheterization 02/23/2020, s/p PCI with ROJAS to the RCA PDA on 02/23/20 Surgical History S/P coronary artery stent placement History of lumbar spinal fusion Hx of tonsillectomy History of carpal tunnel surgery History of cardiac cath 2017- 1 ROJAS to ramus, 2 ROJAS to L circumflex. 40-50% plaque to LAD 2018- distal disease (80%) within PDA Status post cholecystectomy Family History Other Diabetes Heart disease Hypertension Kidney stones Seizures Social History Smoking Status: Current every day smoker Tobacco Type: Cigarettes Cigarettes Per Day: <20; Second Hand Exposure: Yes; Do You Dip or Chew Tobacco: No; Hx Alcohol Use: Yes Alcohol type: beer, wine and hard liquor Hx Substance Use: Yes Non-Prescribed Medications: Heroin, IV Drugs and Methamphetamines Last Used Substance: Unknown Last Used Substance Other:: 4 years ago Substance Use Type Other:: 3 years drug free per record Preferred Language: Azeri Communication Ability: Impaired Communication Ability Comment: Intubated/sedated Visual Impairment: No Limitations Hearing Ability: Normal Technology Applications Consultant Required: No Beliefs That Will Affect Care: None marital status: Single Current Living Situation: Spouse Current Living Situation Comment: Unknown due to pt condition How many Children do You have: 1 Feels Safe at Home: Yes Assistive Devices: Oxygen - at Night and Walker Physical Exam Physical Exam: CONSTITUTIONAL: WNWD, intubated and sedated EYES: anisocoria with right pupil larger than left and both reactive to light. Normal conjunctivae, no scleral icterus ENT: external ear and nose normal, MMM NECK: trachea midline RESPIRATORY: coarse rhonchi throughout. No rales or wheezes, normal respiratory effort, intubated. CARDIOVASCULAR: regular rate and rhythm, S1 and 2 heard without murmurs, gallops or rubs, no JVD, no peripheral edema CHEST: inspection of chest was normal GASTROINTESTINAL: soft, nontender, ND, no guarding MUSCULOSKELETAL: sedated, cannot assess SKIN: warm and dry NEUROLOGIC: could not elicit patellar DTRs, sedated, cannot assess further. PSYCHIATRIC: sedated, cannot assess. Results & Data Results & Data Vital Signs (Past 12 Hours) Vital Signs Temp Pulse Resp BP BP Pulse Ox O2 Del Method 04/22/23 11:53 72/58 L 04/22/23 11:50 124 H 41 H 04/22/23 11:50 43/31 L 04/22/23 11:50 96/54 L 04/22/23 11:47 BiPAP 04/22/23 11:47 33 H 04/22/23 11:47 98 BiPAP 04/22/23 11:47 37 C 135 H 35 H 96/54 L 97 BiPAP 04/22/23 11:45 79/36 L 04/22/23 11:45 129 H 41 H 98 04/22/23 11:42 129 H 36 H 99 04/22/23 11:42 70/53 L 04/22/23 11:40 130 H 35 H 91 04/22/23 11:30 131 H 28 H 100 04/22/23 11:20 135 H 44 H 100 04/22/23 11:19 138 H 04/22/23 11:15 138 H 36 H 100 Laboratory Results Short CBC 04/22/23 Range/Units 11:38 WBC 37.59 H* (4.8-10.8) K/ul Hgb 10.5 L (12.0-16.0) g/dl Hct 34.1 L (37.0-47.0) % Plt Count 280 (130-400) K/uL BMP 04/22/23 11:38 Sodium 130 L Potassium 5.1 Chloride 100 Carbon Dioxide 12 L BUN 35 H Creatinine 2.27 H Glucose 126 H Calcium 8.5 L Liver Function 04/22/23 Range/Units 11:38 Total Bilirubin 0.6 (0.2-1.0) mg/dl Direct Bilirubin 0.2 (0-0.2) mg/dl AST 52 H (13-39) U/L ALT 13 (7-52) U/L Alkaline Phosphatase 77 (34-104) U/L Albumin 3.4 (3.4-5.0) gm/dl Diagnostic Findings Chest X-Ray 04/22/23 11:12 XR chest 1V portable CLINICAL HISTORY: Sepsis TECHNIQUE: Single frontal radiograph of the chest was obtained. Comparison: Comparison is made to chest radiograph 12/07/2022 FINDINGS: No lines and tubes are seen. Cardiomegaly is noted. Multifocal airspace opacities are seen. No evidence of pleural effusion or pneumothorax. IMPRESSION: Multifocal airspace opacities may represent atelectasis, pneumonia, and/or aspiration. ACT 112: Negative or not required by law. Electronically signed by: Moi Ring M.D. 04/22/2023 11:38 AM Chest X-Ray 04/22/23 12:17 XR chest 1V portable CLINICAL HISTORY: ett placement TECHNIQUE: Single frontal radiograph of the chest was obtained. Comparison: Comparison is made to chest radiograph 04/22/2023 FINDINGS: Endotracheal tube terminates 2.6 cm from the misti. Enteric tube tip and side port lie below the diaphragm. Cardiomegaly is noted. Multifocal airspace opacities are seen. No evidence of pleural effusion or pneumothorax. IMPRESSION: Satisfactory appearance of endotracheal and enteric tubes. Stable multifocal airspace opacities. ACT 112: Negative or not required by law. Electronically signed by: Moi Ring M.D. 04/22/2023 12:32 PM Code Status & VTE Plan VTE Prophylaxis Plan VTE Prophylaxis will be ordered: Yes (8) Depression Depression Type: unspecified Qualified Code(s): F32.9 - Major depressive disorder, single episode, unspecified (10) Diabetes mellitus, type 2 Diabetes mellitus complication status: with unspecified complications Diabetes mellitus chcf insulin use: without parts counterman use Qualified Code(s): E11.8 - Type 2 diabetes mellitus with unspecified complications
[2023-04-22 12:57] LABS: Appearance Urine Clear (Clear); Bilirubin Urine Negative (Negative); Blood Urine Negative (Negative); Color Urine Yellow; Glucose Urine UA Negative (Negative); Ketones Urine Negative (Negative); Leukocyte Esterase Urine Negative (Negative); Nitrite Urine Negative (Negative); Protein Urine Negative (Negative); Specific Gravity Urine 1.012 (1.000-1.030); Urobilinogen Urine Negative (Negative)
[2023-04-22] MEDS ORDERED: GLUCOSE 10 TAB/TUBE PO PRN (13:11)
[2023-04-22] MEDS ORDERED: DEXTROSE 50% 50 ML SYRINGE IV PRN (13:11)
[2023-04-22] MEDS ORDERED: GLUCOSE 40% GEL 15 GM TUBE PO PRN (13:11)
[2023-04-22] MEDS ORDERED: GLUCAGON FOR INJ 1 MG VIAL SQ PRN (13:11)
[2023-04-22] MEDS ORDERED: CARBOHYDRATES FOR HYPOGLYCEMIA PO PRN (13:11)
[2023-04-22 13:14] LABS: Acetaminophen < 3 ug/ml (10-30); Salicylate < 3.0 mg/dl (3.0-30)
[2023-04-22 13:23] LABS: Potassium Random Urine 40.4 mmol/L
[2023-04-22 13:28] LABS: Amphetamines+Metham, Urine Neg (Neg); Barbiturates, Urine Neg (Neg); Benzodiazepine, Urine Neg (Neg); Cocaine, Urine Neg (Neg); MDMA (Ecstacy), Urine Pos (Neg); Marijuana, Urine Neg (Neg); Methadone, Urine Neg (Neg); Opiate, Urine Neg (Neg); Phencyclidine, Urine Neg (Neg)
[2023-04-22 13:31] LABS: Creatinine Urine Random 65.8 mg/dl
--- NOTE | 2023-04-22 14:24 | XRay Report ---
XR chest 1V portable CLINICAL HISTORY: CVC placement COMPARISON STUDY: Chest CT December 04, 2022 and chest radiograph April 22, 2023 at 12:23 PM. FINDINGS: Tip of the right internal jugular central venous catheter projects over the distal SVC. The tip of the endotracheal tube is 1.6 cm above the misti. Tip of nasogastric tube is at least within the body of the stomach. There is no pneumothorax. No definite pleural effusion is identified. Extens joanne bilateral airspace opacities and interstitial thickening are present. Lung aeration has slightly improved since prior chest radiograph. Cardiomediastinal silhouette is stable. IMPRESSION: 1. No pneumothorax following placement of a right internal jugular central line. Tip is within the di stal SVC. 2. Satisfactory positioning of the endotracheal and nasogastric tubes. 3. Extensive bilateral airspace opacities and interstitial thickening. Slight improvement in lung aer ation. The findings could reflect pulmonary edema or multifocal pneumonia. ACT 112: Negative or not required by law. Electronically signed by: Kush Rueda M.D. 04/22/2023 2:21 PM
--- NOTE | 2023-04-22 14:38 | Procedure Note ---
Procedure Note Date of Service April 22, 2023 Note Bedside Ultrasound: Lung: Right:-B-lines appreciated posteriorly, minimal B-lines anteriorly, no pleural effusion Left:-B-lines appreciated posteriorly as well as anteriorly, no pleural effusion Heart: RV collapsible, good EF, no pericardial effusion Abdomen: No ascites Please note the above document was generated using voice recognition software. It may contain grammatical, syntax or spelling errors.Any formal questions or concerns about the content, text or information contained within the body of this dictation should be directly addressed to the provider for clarification. Coding CPT Codes Pulmonary/Thoracic - Pulmonary and Thoracic: 46579 US, Chest, real time with imaging documentation ([id number]) [facility] [facility] [place]odes (Charges) Pulmonary/Thoracic Procedure 1: Pulmonary and Thoracic: 70450 US, Chest, real time with imaging documentation
--- NOTE | 2023-04-22 14:40 | Procedure Note ---
Procedure Note Date of Service April 22, 2023 Note Procedure: Inserting ultrasound-guided central electric utility lineworker: Dr. Charlette De Jesus Indication: Difficult stick and critically ill patient Consent: Emergent consent was applied Anesthesia: 1% lidocaine without epinephrine local. Procedure: Consent was verified and timeout performed. Appropriate imaging studies were reviewed prior to the procedure. Under aseptic and sterile condition, right IJ vein was accessed under direct ultrasound guidance. Guidewire was confirmed to be within the lumen of vein with the help of ultrasound. Catheter was introduced via Seldinger technique. Guide a wire was removed. Good non-pulsatile blood flow was appreciated from all the ports. The catheter was placed at 16 cm and sut[address] in place. BioPatch was applied to the catheter and a sterile Tegaderm dressing was applied over the catheter with careful attention to sterility. Lung sliding was appreciated post procedure with the help ultrasound. Chest x-ray to follow Patient tolerated the procedure well. Blood loss: Less than 2 cc Complications: None Coding CPT Codes Tubes, Drains, and Vasc Access - Tubes, Drains, and Vasc Access: [id number] Place catheter in vein superior or inferior vena cava ([id number]) Tubes, Drains, and Vasc Access - Tubes, Drains, and Vasc Access: [id number] Ultrasound Guidance For Vascular ([id number]) [facility] [place] Codes (Charges) Tubes, Drains, and Vasc Access Procedure 1: Tubes, Drains, and Vasc Access: [id number] Place catheter in vein superior or inferior vena cava Procedure 2: Tubes, Drains, and Vasc Access: [id number] Ultrasound Guidance For Vascular
[2023-04-22] MEDS: fentaNYL BOLUS from BAG IV PRN (14:41)
--- NOTE | 2023-04-22 14:42 | Procedure Note ---
Procedure Note Date of Service April 22, 2023 Note ARTERIAL LINE PROCEDURE NOTE: Procedure: Arterial Line Placement Attending: Dr. Charlette De Jesus MD Indication: Frequent ABGs Anesthesia: General anesthesia Emergent consent was applied A time-out was completed verifying correct patient, procedure, site, positioning, and implant(s) or special equipment if applicable. Allens test was performed to ensure adequate perfusion. Patients left wrist was prepped and draped in the usual sterile fashion. Ultrasound guidance was used to aid needle placement. A 20g Arrow arterial line was introduced into the left radial artery. Catheter was threaded, and the n eedle was removed with appropriate pulsatile blood return. Good waveform was observed on the monitor. The patient tolerated the procedure well. Confirmation of placement with ultrasound. Images saved to medical record. Complications: None Blood Loss: Less than 1 cc Coding CPT Codes Tubes, Drains, and Vasc Access - Tubes, Drains, and Vasc Access: [id number] Arterial Cath/Cannulation Sampling/Monitoring/Transfusion ([id number]) Tubes, Drains, and Vasc Access - Tubes, Drains, and Vasc Access: [id number] Ultrasound Guidance For Vascular ([id number]) [facility] [place] Procedure Codes (Charges) Tubes, Drains, and Vasc Access Procedure 1: Tubes, Drains, and Vasc Access: [id number] Arterial Cath/Cannulation Sampling/Monitoring/Transfusion Procedure 2: Tubes, Drains, and Vasc Access: [id number] Ultrasound Guidance For Vascular
[2023-04-22 14:49] LABS: Troponin I High Sensitivity 148.6 pg/ml (0-14)
[2023-04-22] MEDS ORDERED: SODIUM BICARB 8.4% INJ 50 MEQ/50 ML SYR IV STA (14:58)
[2023-04-22 15:10] LABS: iSTAT Art Bld Gas pCO2 Correct 47 mmHg (35-46); iSTAT Art Bld Gas pH Corrected 7.172 (7.35-7.45); iSTAT Arterial Blood Gas HCO3 17 meg/L (19-24); iSTAT Arterial Blood Gas pCO2 48 mmHg (35-46); iSTAT Arterial Blood Gas pH 7.17 (7.35-7.45); iSTAT Arterial Blood Gas pO2 96 mmHg (80-95); iSTAT Arterial Blood Gas pO2 C 93; iSTAT Carbon Dioxide 19 mmol/L (24-31); iSTAT FiO2 50 %; iSTAT Hematocrit 30 % (37-47); iSTAT Hemoglobin 10.2 g/dl (12.0-16.0); iSTAT Potassium 5.6 mmol/L (3.3-5.0); iSTAT Site Art Line; iSTAT Sodium 131 mmol/L (135-144)
[2023-04-22] MEDS ORDERED: INFLUENZA VIRUS QUADRIVALENT VACCINE (IIV4) 0.5 ML SYR IM ONE (15:18)
[2023-04-22] MEDS ORDERED: PNEUMOCOCCAL VACCINE (PCV20) 20-VAL CONJ-DIP CRM/PF 0.5 ML SYR IM ONE (15:18)
[2023-04-22] MEDS: AZITHROMYCIN 500 MG in DEXTROSE 5% 250 ML IV SCH (15:23)
[2023-04-22 15:36] LABS: Hematocrit (blood only) 30.5 % (37.0-47.0); Hemoglobin 9.7 g/dl (12.0-16.0); Mean Corpuscular Hemoglobin 27.5 pg (25.0-34.0); Mean Corpuscular Hgb Conc 31.8 g/dL (32.0-36.0); Mean Corpuscular Volume 86.4 fL (80.0-100.0); Mean Platelet Volume 12.4 fL (9.4-12.4); Platelet Count 234 K/uL (130-400); RDW Coefficient of Variation 17.9 % (11.5-14.5); RDW Standard Deviation 56.8 fL (36.4-46.3); Red Blood Count 3.53 M/uL (4.20-5.40); White Blood Count 34.23 K/ul (4.8-10.8)
[2023-04-22 15:41] LABS: Albumin Globulin Ratio 1.1 (0.9-2); BUN Creatinine Ratio 17.6 (10-20); Bilirubin,Total 0.5 mg/dl (0.2-1.0); Calcium 7.6 mg/dl (8.6-10.3); Creatinine Clr Calc Pharmacy 36.1 ml/min; Est GFR (African American) 35.6 ml/min; Est GFR (Non-African American) 30.7 ml/min; Globulin 2.7 gm/dl (2.5-4.0); Potassium 5.6 mmol/L (3.5-5.1); Total Protein 5.7 gm/dl (6.0-8.3)
[2023-04-22] MEDS ORDERED: VANCOMYCIN HCL 500 MG in NSS 100mL IV ONE (16:00)
[2023-04-22] MEDS ORDERED: D5W AND NSS 1,000 ML IV SCH (16:00)
[2023-04-22] MEDS ORDERED: INSULIN ASPART PER UNIT CHARGE SC SCH (16:30)
[2023-04-22] MEDS ORDERED: PROPOFOL BOLUS FROM BAG IV PRN (16:50)
[2023-04-22] MEDS: ICU Protocol for HYPERglycemia SCH ×2 (17:02→20:42)
[2023-04-22] MEDS: propofoL 1,000 MG/100 ML VIAL IV SCH (17:04)
[2023-04-22] MEDS ORDERED: Nursing to Pharmacy Communication SCH ×2 (17:15→18:45)
[2023-04-22] MEDS: INSULIN ASPART PER UNIT CHARGE SC SCH (17:59)
--- NOTE | 2023-04-22 18:04 | Emergency Department Note ---
History of Present Illness General Chief Complaint: Shortness of Breath/Dyspnea Stated Complaint: breathing difficulty Time Seen by Provider: 04/22/23 11:12 Source: EMS History of Present Illness Provider Complaint: shortness of breath Onset (ago): day(s) (1) Relieved By: + oxygen Exacerbated By: + coughing Known history of: COPD and congestive heart failure Associated symptoms: + wheezing Treatment prior to arrival: oxygen and bronchodilator HPI Narrative: 43-year-old female presented to the emergency department via EMS for difficulty breathing. EMS reported that the patient was having shortness of breath at home. EMS reports that the patient has a history of CHF and actively smokes and has COPD. EMS reports that when they arrived the patient had pinpoint pupils. Patient does take trazodone regularly. Home Medications Medication Instructions Recorded Confirmed Type albuterol sulfate 2.5 mg/3 mL 2.5 mg inhalation Q4 PRN 07/10/21 04/22/23 History (0.083 %) solution for nebulization WHEEZE/COUGH albuterol sulfate 90 mcg/actuation 2 puff inhalation Q4 PRN cough or 07/10/21 04/22/23 History aerosol inhaler wheezing atorvastatin 80 mg tablet 80 mg PO QAM 07/10/21 04/22/23 History buspirone 15 mg tablet 15 mg PO AMHS 07/10/21 04/22/23 History clopidogrel 75 mg tablet 75 mg PO DAILY 07/10/21 04/22/23 History cyclobenzaprine 10 mg tablet 10 mg PO BID 07/10/21 04/22/23 History escitalopram oxalate 20 mg tablet 20 mg PO QAM 07/10/21 04/22/23 History levetiracetam 500 mg tablet 500 mg PO AMHS 07/10/21 04/22/23 History lisinopril 5 mg tablet 5 mg PO QAM 07/10/21 04/22/23 History metformin 1,000 mg tablet 1,000 mg PO BID 07/10/21 04/22/23 History metoprolol succinate 25 mg 25 mg PO DAILY 07/10/21 04/22/23 History tablet,extended release 24 hr polyethylene glycol 3350 17 gram 17 g PO DAILY PRN Constipation 07/10/21 04/22/23 History oral powder packet (Miralax) potassium chloride 20 mEq 20 meq PO QAM 07/10/21 04/22/23 History tablet,extended release(part/cryst) (Klor-Con M) torsemide 20 mg tablet 20 mg PO DAILY 07/10/21 04/22/23 History trazodone 50 mg tablet 100 mg PO HS 07/10/21 04/22/23 History aspirin 81 mg tablet,delayed 81 mg PO DAILY 03/03/22 04/22/23 History release famotidine 20 mg tablet 20 mg PO BID PRN Heartburn 03/03/22 04/22/23 History fluticasone furoate 200 1 inh inhalation QAM 03/03/22 04/22/23 History mcg-vilanterol 25 mcg/dose inhalation powder (Breo Ellipta) gabapentin 300 mg capsule 600 mg PO BID@0800,1400 03/03/22 04/22/23 History nitroglycerin 0.4 mg sublingual 0.4 mg sublingual DAILY PRN Chest 03/03/22 04/22/23 History tablet Pain buprenorphine 8 mg-naloxone 2 mg 1 film sublingual DAILY 12/04/22 04/22/23 History sublingual film ferrous sulfate 325 mg (65 mg 325 mg PO Q2D 04/22/23 04/22/23 History iron) tablet gabapentin 300 mg capsule 900 mg PO HS 04/22/23 04/22/23 History meclizine 25 mg tablet 25 mg PO TID PRN Dizziness 04/22/23 04/22/23 History Allergies Allergy/AdvReac Type Severity Reaction Status Date / Time lidocaine Allergy Intermediate HIVES Verified 07/10/21 21:33 procaine Allergy Intermediate HIVES Verified 07/10/21 21:33 Penicillins Allergy Mild HAD NO Verified 07/10/21 21:33 PROBLEM WITH ZOSYN strawberry Allergy Mild HIVES Verified 07/10/21 21:33 mushroom Allergy Unknown Unknown Verified 12/11/22 15:32 COVID-19 (SARS-CoV-2) AdvReac Severe stopped Verified 12/05/22 20:06 vaccine, zoraida breathing next day cephalexin AdvReac Intermediate YEAST Verified 07/10/21 21:33 INFECTIONS tramadol AdvReac Intermediate SEIZURES Verified 07/10/21 21:33 azithromycin AdvReac Mild STOMACH Verified 07/10/21 21:33 PAIN Past Med/Surg History Medical History Acute renal failure Polysubstance abuse Methamphetamine abuse Cannabis abuse Opiate abuse, continuous Anemia, iron deficiency Aortic stenosis Aortic regurgitation Hx of drug abuse Asthma exacerbation Chronic diastolic CHF (congestive heart failure) History of drug abuse Depression GERD (gastroesophageal reflux disease) Seizure disorder Hepatosplenomegaly History of DVT (deep vein thrombosis) Asthma History of renal calculi Hepatitis C "Antibiotic screen positive, quantitative RNA positive 08/30/17" Hypertension Diabetes mellitus, type 2 Coronary artery disease Premature atherosclerotic coronary disease s/p 2-vessel coronary intervention 10/2016 receiving ROJAS to the ramus intermedius and distal circumflex for NTEMI, Repeat catheterization 02/23/2020, s/p PCI with ROJAS to the RCA PDA on 02/23/20 Surgical History S/P coronary artery stent placement History of lumbar spinal fusion Hx of tonsillectomy History of carpal tunnel surgery History of cardiac cath 2016- 1 ROJAS to ramus, 2 ROJAS to L circumflex. 40-50% plaque to LAD 2017- distal disease (80%) within PDA Status post cholecystectomy Family History Other Diabetes Heart disease Hypertension Kidney stones Seizures Social History Smoking Status: Current every day smoker Tobacco Type: Cigarettes Cigarettes Per Day: <20; Second Hand Exposure: Yes; Do You Dip or Chew Tobacco: No; Hx Alcohol Use: Yes Alcohol type: beer, wine and hard liquor Hx Substance Use: Yes Non-Prescribed Medications: Heroin, IV Drugs and Methamphetamines Last Used Substance: Unknown Last Used Substance Other:: 4 years ago Substance Use Type Other:: 3 years drug free per record Preferred Language: Martiniquais Communication Ability: Impaired Communication Ability Comment: Intubated/sedated Visual Impairment: No Limitations Hearing Ability: Normal Account Resolution Specialist Required: No Beliefs That Will Affect Care: None marital status: Single Current Living Situation: Spouse Current Living Situation Comment: Unknown due to pt condition How many Children do You have: 1 Feels Safe at Home: Yes Assistive Devices: Oxygen - at Night and Walker Physical Exam 2 Vital Signs: Vital Signs - 24 hr 04/22/23 11:15 04/22/23 11:19 04/22/23 11:20 Temperature Temperature Source Pulse Rate 138 H 138 H 135 H Pulse Rate from Sp O2 Sensor 138 H 134 H Respiratory Rate 36 H 44 H Respiratory Effort / Characteristics Respiratory Depth Respiratory Patter n Blood Pressure Blood Pressure [Le ft Arm] Blood Pressure Queta n Blood Pressure Queta n [Left Arm] Pulse Oximetry 100 100 Oxygen Delivery Me thod Fraction of Inspir ed Oxygen Sepsis Recent Feve r Within 48 Hours Sepsis New/Unexpla ined Change in Men kimberlee Status Sepsis Action Take n by Nursing End-Tidal CO2 04/22/23 11:30 04/22/23 11:40 04/22/23 11:42 Temperature Temperature Source Pulse Rate 131 H 130 H Pulse Rate from Sp O2 Sensor 130 H 131 H Respiratory Rate 28 H 35 H Respiratory Effort / Characteristics Respiratory Depth Respiratory Patter n Blood Pressure 70/53 L Blood Pressure [Le ft Arm] Blood Pressure Queta n 56 Blood Pressure Queta n [Left Arm] Pulse Oximetry 100 91 Oxygen Delivery Me thod Fraction of Inspir ed Oxygen Sepsis Recent Feve r Within 48 Hours Sepsis New/Unexpla ined Change in Men kimberlee Status Sepsis Action Take n by Nursing End-Tidal CO2 04/22/23 11:42 04/22/23 11:45 04/22/23 11:45 Temperature Temperature Source Pulse Rate 129 H 129 H Pulse Rate from Sp O2 Sensor 129 H 128 H Respiratory Rate 36 H 41 H Respiratory Effort / Characteristics Respiratory Depth Respiratory Patter n Blood Pressure 79/36 L Blood Pressure [Le ft Arm] Blood Pressure Queta n 65 Blood Pressure Queta n [Left Arm] Pulse Oximetry 99 98 Oxygen Delivery Me thod Fraction of Inspir ed Oxygen Sepsis Recent Feve r Within 48 Hours Sepsis New/Unexpla ined Change in Men kimberlee Status Sepsis Action Take n by Nursing End-Tidal CO2 04/22/23 11:45 04/22/23 11:47 04/22/23 11:47 Temperature 37 C Temperature Source Axillary Pulse Rate 135 H Pulse Rate from Sp O2 Sensor Respiratory Rate 37 H 35 H Respiratory Effort / Characteristics Spontaneous Short of Breath Spontaneous Short of Breath SOB on E xertion Respiratory Depth Deep Shallow Respiratory Patter n Regular Blood Pressure 96/54 L Blood Pressure [Le ft Arm] Blood Pressure Queta n 68 Blood Pressure Queta n [Left Arm] Pulse Oximetry 97 97 98 Oxygen Delivery Me thod BiPAP BiPAP Fraction of Inspir ed Oxygen 50 Sepsis Recent Feve r Within 48 Hours No Sepsis New/Unexpla ined Change in Men kimberlee Status Yes Sepsis Action Take n by Nursing Physician Notified End-Tidal CO2 04/22/23 11:47 04/22/23 11:47 04/22/23 11:50 Temperature Temperature Source Pulse Rate Pulse Rate from Sp O2 Sensor Respiratory Rate 33 H Respiratory Effort / Characteristics Respiratory Depth Respiratory Patter n Blood Pressure 96/54 L Blood Pressure [Le ft Arm] Blood Pressure Queta n 66 Blood Pressure Queta n [Left Arm] Pulse Oximetry Oxygen Delivery Me thod BiPAP Fraction of Inspir ed Oxygen Sepsis Recent Feve r Within 48 Hours Sepsis New/Unexpla ined Change in Men kimberlee Status Sepsis Action Take n by Nursing End-Tidal CO2 04/22/23 11:50 04/22/23 11:50 04/22/23 11:53 Temperature Temperature Source Pulse Rate 124 H Pulse Rate from Sp O2 Sensor Respiratory Rate 41 H Respiratory Effort / Characteristics Respiratory Depth Respiratory Patter n Blood Pressure 43/31 L Blood Pressure [Le ft Arm] 72/58 L Blood Pressure Queta n 34 Blood Pressure Queta n [Left Arm] 62 Pulse Oximetry Oxygen Delivery Me thod Fraction of Inspir ed Oxygen Sepsis Recent Feve r Within 48 Hours Sepsis New/Unexpla ined Change in Men kimberlee Status Sepsis Action Take n by Nursing End-Tidal CO2 04/22/23 11:54 04/22/23 11:54 04/22/23 12:00 Temperature Temperature Source Pulse Rate 124 H 124 H Pulse Rate from Sp O2 Sensor 126 H 123 H Respiratory Rate 40 H 43 H Respiratory Effort / Characteristics Respiratory Depth Respiratory Patter n Blood Pressure 83/52 L Blood Pressure [Le ft Arm] Blood Pressure Queta n 58 Blood Pressure Queta n [Left Arm] Pulse Oximetry 99 97 Oxygen Delivery Me thod Fraction of Inspir ed Oxygen Sepsis Recent Feve r Within 48 Hours Sepsis New/Unexpla ined Change in Men kimberlee Status Sepsis Action Take n by Nursing End-Tidal CO2 04/22/23 12:00 04/22/23 12:05 04/22/23 12:05 Temperature Temperature Source Pulse Rate 120 H Pulse Rate from Sp O2 Sensor 120 H Respiratory Rate 23 Respiratory Effort / Characteristics Respiratory Depth Respiratory Patter n Blood Pressure 93/56 L 114/62 Blood Pressure [Le ft Arm] Blood Pressure Queta n 68 71 Blood Pressure Queta n [Left Arm] Pulse Oximetry 100 Oxygen Delivery Me thod Fraction of Inspir ed Oxygen Sepsis Recent Feve r Within 48 Hours Sepsis New/Unexpla ined Change in Men kimberlee Status Sepsis Action Take n by Nursing End-Tidal CO2 04/22/23 12:10 04/22/23 12:10 04/22/23 12:16 Temperature Temperature Source Pulse Rate 120 H Pulse Rate from Sp O2 Sensor 122 H Respiratory Rate Respiratory Effort / Characteristics Respiratory Depth Respiratory Patter n Blood Pressure 86/66 L 151/83 H Blood Pressure [Le ft Arm] Blood Pressure Queta n 76 111 Blood Pressure Queta n [Left Arm] Pulse Oximetry 97 Oxygen Delivery Me thod Fraction of Inspir ed Oxygen Sepsis Recent Feve r Within 48 Hours Sepsis New/Unexpla ined Change in Men kimberlee Status Sepsis Action Take n by Nursing End-Tidal CO2 04/22/23 12:16 04/22/23 12:20 04/22/23 12:20 Temperature Temperature Source Pulse Rate 138 H 140 H Pulse Rate from Sp O2 Sensor 139 H 140 H Respiratory Rate 18 26 H Respiratory Effort / Characteristics Respiratory Depth Respiratory Patter n Blood Pressure 147/72 H Blood Pressure [Le ft Arm] Blood Pressure Uqeta n 112 Blood Pressure Queta n [Left Arm] Pulse Oximetry 86 L 98 Oxygen Delivery Me thod Fraction of Inspir ed Oxygen Sepsis Recent Feve r Within 48 Hours Sepsis New/Unexpla ined Change in Men kimberlee Status Sepsis Action Take n by Nursing End-Tidal CO2 32 31 04/22/23 12:20 04/22/23 12:25 04/22/23 12:25 Temperature Temperature Source Pulse Rate 147 H 142 H Pulse Rate from Sp O2 Sensor 142 H Respiratory Rate 26 H 26 H Respiratory Effort / Characteristics Respiratory Depth Respiratory Patter n Blood Pressure 134/78 Blood Pressure [Le ft Arm] Blood Pressure Queta n 91 Blood Pressure Queta n [Left Arm] Pulse Oximetry 99 98 Oxygen Delivery Me thod Fraction of Inspir ed Oxygen 100 Sepsis Recent Feve r Within 48 Hours Sepsis New/Unexpla ined Change in Men kimberlee Status Sepsis Action Take n by Nursing End-Tidal CO2 31 32 Physical Exam: Physical Exam GENERAL: She is oriented to person, place, and time. She does not distressed. HENT: Exam performed. -Head: Normocephalic and atraumatic. -Right Ear: External ear normal. No mastoid erythema -Left Ear: External ear normal. No mastoid erythema -Mouth/Throat: The oropharynx is clear and moist. No trismus in the jaw. No dental abscesses or uvula swelling. No oropharyngeal exudate or tonsillar abscesses. EYES: Conjunctivae and EOM are normal. Pupils are pinpoint. Right eye exhibits no discharge. Left eye exhibits no discharge. No scleral icterus. NECK: Normal range of motion. Neck supple. No JVD present. CV: Tachycardia rate, regular rhythm, normal heart sounds and intact distal pulses. There is no peripheral edema. Palpable radial pulses bue. PULM/CHEST: Inspiratory rales at the bases rhonchi bilaterally scant expiratory wheeze ABD: The abdomen is soft. MUSC/SKEL: Normal range of motion. There is no peripheral edema, tenderness or deformity. NEURO: She is alert and oriented to person, place, and time. She has normal strength. No cranial nerve deficit or sensory deficit. Procedures Intubation Time out performed: Yes sedative: Etomidate Mg Given: 20 paralytic: Rocuronium Mg Given: 80 Laryngoscope: other (glidescope) ET Tube Size: 7 Tube Placement Confirmation: equal breath sounds bilaterally, no breath sounds over epigastrium and confirmation by capnometry Patient Tolerated Procedure: well Intubation Complications: none Course Course 1112: The patient was evaluated in room B1. A complete history and physical exam was performed Cardiac monitoring: An order was placed for continuous cardiac monitoring. The monitor shows a rate of 130 with sinus rhythm interpreted by me Patient tachypneic. Oxygen saturation in the 20s on room air. Patient switched to BiPAP. 1120: Chest x-ray viewed by me shows bilateral fluffy infiltrates cardiomegaly and cephalization. 1145: Wycxv-gx-guyr creatinine 2.4 jmkrm-tm-bnit potassium of 5. Fxbaj-ke-yjir VBG shows venous pH is 7.148 venous pCO2 34.6. 1155: Patient is still tachypneic with respiratory rate in the 40s. Patient currently on BiPAP FiO2 50% 12/8. Patient is becoming hypotensive with a manual blood pressure 70/40. Normal saline 500 cc bolus ordered for the patient. Discussed the case with Dr. Neal PALOMO who states that the patient has a history of being intubated and aortic stenosis. He recommends starting patient on a Levophed drip to improve her blood pressure and once the pressure is better to intubate the patient and admit her to the ICU. 1225: Patient intubated. See procedure note. 1240: Patient becoming more tachycardic and blood pressure going up Levophed drip discontinued. Administered Medications Fentanyl Citrate (Fentanyl Bolus From Bag) 50 mcg IV Q60M PRN PRN Reason: Pain or Agitation Stop: 05/06/23 12:13 Last Admin: 04/22/23 14:41 Dose: 50 mcg Documented By: LILIANA Co-signed By: JOSIE Norepinephrine Bitartrate (Levophed/D5w) 4 mg in 250 mls @ 0 mls/hr IV .Q0M [facility]; Protocol Stop: 05/22/23 12:14 Last Titration: 04/22/23 12:26 Dose: 0 mcg/kg/min, 0 mls/hr Documented By: Titration: 04/22/23 12:18 Dose: 0.05 mcg/kg/min, 15.2 mls/hr Documented By: Admin: 04/22/23 12:16 Dose: 0.1 mcg/kg/min, 30.3 mls/hr Documented By: CHELSEA Co-signed By: EDI Fentanyl Citrate (Fentanyl Citrate) 2,500 mcg in 250 mls @ 2.5 mls/hr IV .Q96H [facility]; Protocol Stop: 05/06/23 12:14 Last Titration: 04/22/23 17:07 Dose: 25 mcg/hr, 2.5 mls/hr Documented By: LILIANA Co-signed By: JOSIE Titration: 04/22/23 15:36 Dose: 75 mcg/hr, 7.5 mls/hr Documented By: LILIANA Co-signed By: JOSIE Titration: 04/22/23 14:42 Dose: 50 mcg/hr, 5 mls/hr Documented By: LILIANA Co-signed By: JOSIE Admin: 04/22/23 12:25 Dose: 25 mcg/hr, 2.5 mls/hr Documented By: EDI Co-signed By: CHELSEA Azithromycin 500 mg/ Dextrose 255 mls @ 125 mls/hr IV Q24H [facility] Stop: 04/29/23 14:59 Last Admin: 04/22/23 15:23 Dose: 125 mls/hr Documented By: LILIANA Dextrose/Sodium Chloride (D5w And Nss) 1,000 mls @ 75 mls/hr IV .[id number] [facility] Stop: 04/23/23 05:19 Last Admin: 04/22/23 16:04 Dose: 75 mls/hr Documented By: LILIANA Propofol (Diprivan) 1,000 mg in 100 mls @ 9.6 mls/hr IV .[id number] [facility]; Protocol Stop: 04/25/23 16:59 Last Admin: 04/22/23 17:04 Dose: 20 mcg/kg/min, 9.6 mls/hr Documented By: LILIANA Co-signed By: JOSIE Odell (Icu Protocol For Hyperglycemia) 1 each N/A ACHS [facility] Stop: 04/24/23 16:29 Last Admin: 04/22/23 17:02 Dose: Not Given Documented By: LILIANA Discontinued Medications Fentanyl Citrate (Fentanyl Citrate Pf 100 Mcg/2 Ml Vial) 100 mcg IV NOW STA Stop: 04/22/23 12:12 Last Admin: 04/22/23 12:14 Dose: 100 mcg Documented By: CHELSEA Cefepime HCl (Maxipime) 2,000 mg in 20 mls @ 5 mls/min IV NOW STA; Protocol Stop: 04/22/23 12:18 Last Admin: 04/22/23 12:25 Dose: 5 mls/min Documented By: EDI Vancomycin HCl 500 mg/ Sodium (Chloride) 110 mls @ 132 mls/hr IV ONE ONE Stop: 04/22/23 16:49 Last Admin: 04/22/23 16:59 Dose: 132 mls/hr Documented By: LILIANA Midazolam HCl (Midazolam Hcl 1 Mg/Ml 2ml Vial) 2 mg IV NOW STA Stop: 04/22/23 12:12 Last Admin: 04/22/23 12:15 Dose: 2 mg Documented By: CHELSEA Odell (Stat Iv Infusion Titration Per Protocol) 1 each N/A NOW STA Stop: 04/22/23 12:02 Last Admin: 04/22/23 14:41 Dose: 1 each Documented By: LILIANA Sodium Bicarbonate (Sodium Bicarb 8.4% Inj 50 Meq/50 Ml Syr) 100 meq IV NOW STA Stop: 04/22/23 14:59 Last Admin: 04/22/23 15:22 Dose: 100 meq Documented By: LILIANA Medical Decision Making Laboratory Data Attestation: I reviewed the patient's lab results. 04/22/23 15:04 04/22/23 14:06 Lab Results 04/22/23 04/22/23 04/22/23 Range/Units 11:23 11:27 11:38 WBC 37.59 H* (4.8-10.8) K/ul RBC 3.90 L (4.20-5.40) M/uL Hgb 10.5 L (12.0-16.0) g/dl POC Hgb 12.2 (12.0-16.0) g/dl Hct 34.1 L (37.0-47.0) % POC Hct 36 L (37-47) % MCV 87.4 (80.0-100.0) fL MCH 26.9 (25.0-34.0) pg MCHC 30.8 L (32.0-36.0) g/dL RDW Std Deviation 58.4 H (36.4-46.3) fL RDW Coeff of Hannah 18.2 H (11.5-14.5) % Plt Count 280 (130-400) K/uL MPV 11.9 (9.4-12.4) fL Immature Gran % (Auto) 1.0 % Neut % (Auto) 90.3 % Lymph % (Auto) 5.5 % [place] % (Auto) 2.8 % Eos % (Auto) 0.0 % Baso % (Auto) 0.4 % Neut # (Auto) 33.90 H (1.40-6.50) K/uL Lymph # (Auto) 2.07 (1.20-3.40) K/uL [place] # (Auto) 1.07 H (0.11-0.59) K/uL Eos # (Auto) 0.01 (0.00-0.50) K/uL Baso # (Auto) 0.16 (0.00-0.20) K/uL Immature Gran # (Auto) 0.38 H (0.01-0.20) K/uL Polychromasia 1+ Echinocytes 2+ Acanthocytes (Spur) 1+ ESR 36 H (0-20) mm/hr PT 13.0 H (9.0-12.0) Seconds INR 1.2 H (0.9-1.1) APTT 29 (21-31) Seconds PTT Ratio 1.0 POC pH (7.35-7.45) POC pCO2 (35-46) mmHg POC pO2 (80-95) mmHg POC HCO3 (19-24) quinn/L POC Base Excess (-9-1.8) quinn/L POC ABG O2 Sat (90-95) % POC Sodium 131 L (135-144) mmol/L Sodium 130 L (136-145) mmol/L POC Potassium 5.0 (3.3-5.0) mmol/L Potassium 5.1 (3.5-5.1) mmol/L POC Chloride 104 (101-112) mmol/L Chloride 100 (98-107) mmol/L Carbon Dioxide 12 L (21-32) mmol/L POC Total CO2 14 L (24-31) mmol/L Anion Gap 18 H (3-11) POC Anion Gap 19.0 (16-25) mmol/L POC BUN 34 H (7-18) mg/dl BUN 35 H (6-23) mg/dl Creatinine 2.27 H (0.6-1.2) mg/dl POC Creatinine 2.4 H (0.6-1.3) mg/dl Est Cr Clr Drug Dosing 30.8 ml/min Est GFR ( Amer) 29.2 ml/min Est GFR (Non-Af Amer) 25.2 ml/min BUN/Creatinine Ratio 15.4 (10-20) Glucose 126 H (70-99(Fasting)) mg/dl POC Glucose 134 H (70-99) mg/dl POC Glucose (other) 122 H (70-99) mg/dl Osmolality 283 (280-300) mOsm/kg Lactate 10.5 H* (0.4-2.0) mmol/L Calcium 8.5 L (8.6-10.3) mg/dl POC Ioniz Calcium Chuy 1.03 L (1.12-1.32) mmol/l Magnesium 1.8 (1.7-2.4) mg/dl Total Bilirubin 0.6 (0.2-1.0) mg/dl Direct Bilirubin 0.2 (0-0.2) mg/dl AST 52 H (13-39) U/L ALT 13 (7-52) U/L Alkaline Phosphatase 77 (34-104) U/L Troponin I High Sens 114.7 H* (0-14) pg/ml C-Reactive Protein 19.89 H (0-0.5) mg/dl B-Natriuretic Peptide (0-100) pg/ml Total Protein (6.0-8.3) gm/dl Albumin (3.4-5.0) gm/dl Procalcitonin (0-0.5) ng/ml Random Cortisol mcg/dl Adenovirus (PCR) (NotDetected) B. pertussis DNA (PCR) (NotDetected) B.parapertussis DNA PCR (NotDetected) C. pneumoniae DNA (PCR) (NotDetected) Coronavirus OC43 (PCR) (NotDetected) Coronavirus HKU1 (PCR) (NotDetected) Coronavirus 229E (PCR) (NotDetected) SARS-CoV-2 (PCR) (NotDetected) Coronavirus NL63 (PCR) (NotDetected) Human Metapneumovir PCR (NotDetected) Influenza Type A (PCR) (NotDetected) Influenza Type B (PCR) (NotDetected) M. pneumoniae (PCR) (NotDetected) Parainfluenza 1 (PCR) (NotDetected) Parainfluenza 2 (PCR) (NotDetected) Parainfluenza 3 (PCR) (NotDetected) Parainfluenza 4 (PCR) (NotDetected) RSV (PCR) (NotDetected) Entero/Rhino (PCR) (NotDetected) Blood Type Antibody Screen 04/22/23 04/22/23 04/22/23 Range/Units 11:38 11:40 11:45 WBC (4.8-10.8) K/ul RBC (4.20-5.40) M/uL Hgb (12.0-16.0) g/dl POC Hgb 11.2 L (12.0-16.0) g/dl Hct (37.0-47.0) % POC Hct 33 L (37-47) % MCV (80.0-100.0) fL MCH (25.0-34.0) pg MCHC (32.0-36.0) g/dL RDW Std Deviation (36.4-46.3) fL RDW Coeff of Hannah (11.5-14.5) % Plt Count (130-400) K/uL MPV (9.4-12.4) fL Immature Gran % (Auto) % Neut % (Auto) % Lymph % (Auto) % [place] % (Auto) % Eos % (Auto) % Baso % (Auto) % Neut # (Auto) (1.40-6.50) K/uL Lymph # (Auto) (1.20-3.40) K/uL [place] # (Auto) (0.11-0.59) K/uL Eos # (Auto) (0.00-0.50) K/uL Baso # (Auto) (0.00-0.20) K/uL Immature Gran # (Auto) (0.01-0.20) K/uL Polychromasia Echinocytes Acanthocytes (Spur) ESR (0-20) mm/hr PT (9.0-12.0) Seconds INR (0.9-1.1) APTT (21-31) Seconds PTT Ratio POC pH 7.15 L* (7.35-7.45) POC pCO2 35 (35-46) mmHg POC pO2 54 L (80-95) mmHg POC HCO3 12 L (19-24) quinn/L POC Base Excess -17.0 L (-9-1.8) quinn/L POC ABG O2 Sat 78.0 L (90-95) % POC Sodium 131 L (135-144) mmol/L Sodium (136-145) mmol/L POC Potassium 4.9 (3.3-5.0) mmol/L Potassium (3.5-5.1) mmol/L POC Chloride (101-112) mmol/L Chloride (98-107) mmol/L Carbon Dioxide (21-32) mmol/L POC Total CO2 13 L (24-31) mmol/L Anion Gap (3-11) POC Anion Gap (16-25) mmol/L POC BUN (7-18) mg/dl BUN (6-23) mg/dl Creatinine (0.6-1.2) mg/dl POC Creatinine (0.6-1.3) mg/dl Est Cr Clr Drug Dosing ml/min Est GFR ( Amer) ml/min Est GFR (Non-Af Amer) ml/min BUN/Creatinine Ratio (10-20) Glucose (70-99(Fasting)) mg/dl POC Glucose (70-99) mg/dl POC Glucose (other) (70-99) mg/dl Osmolality (280-300) mOsm/kg Lactate (0.4-2.0) mmol/L Calcium (8.6-10.3) mg/dl POC Ioniz Calcium Chuy (1.12-1.32) mmol/l Magnesium (1.7-2.4) mg/dl Total Bilirubin (0.2-1.0) mg/dl Direct Bilirubin (0-0.2) mg/dl AST (13-39) U/L ALT (7-52) U/L Alkaline Phosphatase (34-104) U/L Troponin I High Sens (0-14) pg/ml C-Reactive Protein Cancelled (0-0.5) mg/dl B-Natriuretic Peptide (0-100) pg/ml Total Protein 6.4 (6.0-8.3) gm/dl Albumin 3.4 (3.4-5.0) gm/dl Procalcitonin 4.33 H (0-0.5) ng/ml Random Cortisol 54.27 mcg/dl Adenovirus (PCR) Not Detected (NotDetected) B. pertussis DNA (PCR) Not Detected (NotDetected) B.parapertussis DNA PCR Not Detected (NotDetected) C. pneumoniae DNA (PCR) Not Detected (NotDetected) Coronavirus OC43 (PCR) Not Detected (NotDetected) Coronavirus HKU1 (PCR) Not Detected (NotDetected) Coronavirus 229E (PCR) Not Detected (NotDetected) SARS-CoV-2 (PCR) Not Detected (NotDetected) Coronavirus NL63 (PCR) Not Detected (NotDetected) Human Metapneumovir PCR Not Detected (NotDetected) Influenza Type A (PCR) Not Detected (NotDetected) Influenza Type B (PCR) Not Detected (NotDetected) M. pneumoniae (PCR) Not Detected (NotDetected) Parainfluenza 1 (PCR) Not Detected (NotDetected) Parainfluenza 2 (PCR) Not Detected (NotDetected) Parainfluenza 3 (PCR) Not Detected (NotDetected) Parainfluenza 4 (PCR) Not Detected (NotDetected) RSV (PCR) Not Detected (NotDetected) Entero/Rhino (PCR) Not Detected (NotDetected) Blood Type Antibody Screen 04/22/23 04/22/23 Range/Units 11:49 11:50 WBC (4.8-10.8) K/ul RBC (4.20-5.40) M/uL Hgb (12.0-16.0) g/dl POC Hgb (12.0-16.0) g/dl Hct (37.0-47.0) % POC Hct (37-47) % MCV (80.0-100.0) fL MCH (25.0-34.0) pg MCHC (32.0-36.0) g/dL RDW Std Deviation (36.4-46.3) fL RDW Coeff of Hannah (11.5-14.5) % Plt Count (130-400) K/uL MPV (9.4-12.4) fL Immature Gran % (Auto) % Neut % (Auto) % Lymph % (Auto) % [place] % (Auto) % Eos % (Auto) % Baso % (Auto) % Neut # (Auto) (1.40-6.50) K/uL Lymph # (Auto) (1.20-3.40) K/uL [place] # (Auto) (0.11-0.59) K/uL Eos # (Auto) (0.00-0.50) K/uL Baso # (Auto) (0.00-0.20) K/uL Immature Gran # (Auto) (0.01-0.20) K/uL Polychromasia Echinocytes Acanthocytes (Spur) ESR (0-20) mm/hr PT (9.0-12.0) Seconds INR (0.9-1.1) APTT (21-31) Seconds PTT Ratio POC pH (7.35-7.45) POC pCO2 (35-46) mmHg POC pO2 (80-95) mmHg POC HCO3 (19-24) quinn/L POC Base Excess (-9-1.8) quinn/L POC ABG O2 Sat (90-95) % POC Sodium (135-144) mmol/L Sodium (136-145) mmol/L POC Potassium (3.3-5.0) mmol/L Potassium (3.5-5.1) mmol/L POC Chloride (101-112) mmol/L Chloride (98-107) mmol/L Carbon Dioxide (21-32) mmol/L POC Total CO2 (24-31) mmol/L Anion Gap (3-11) POC Anion Gap (16-25) mmol/L POC BUN (7-18) mg/dl BUN (6-23) mg/dl Creatinine (0.6-1.2) mg/dl POC Creatinine (0.6-1.3) mg/dl Est Cr Clr Drug Dosing ml/min Est GFR ( Amer) ml/min Est GFR (Non-Af Amer) ml/min BUN/Creatinine Ratio (10-20) Glucose (70-99(Fasting)) mg/dl POC Glucose (70-99) mg/dl POC Glucose (other) (70-99) mg/dl Osmolality (280-300) mOsm/kg Lactate (0.4-2.0) mmol/L Calcium (8.6-10.3) mg/dl POC Ioniz Calcium Chuy (1.12-1.32) mmol/l Magnesium (1.7-2.4) mg/dl Total Bilirubin (0.2-1.0) mg/dl Direct Bilirubin (0-0.2) mg/dl AST (13-39) U/L ALT (7-52) U/L Alkaline Phosphatase (34-104) U/L Troponin I High Sens (0-14) pg/ml C-Reactive Protein (0-0.5) mg/dl B-Natriuretic Peptide 198 H (0-100) pg/ml Total Protein (6.0-8.3) gm/dl Albumin (3.4-5.0) gm/dl Procalcitonin (0-0.5) ng/ml Random Cortisol mcg/dl Adenovirus (PCR) (NotDetected) B. pertussis DNA (PCR) (NotDetected) B.parapertussis DNA PCR (NotDetected) C. pneumoniae DNA (PCR) (NotDetected) Coronavirus OC43 (PCR) (NotDetected) Coronavirus HKU1 (PCR) (NotDetected) Coronavirus 229E (PCR) (NotDetected) SARS-CoV-2 (PCR) (NotDetected) Coronavirus NL63 (PCR) (NotDetected) Human Metapneumovir PCR (NotDetected) Influenza Type A (PCR) (NotDetected) Influenza Type B (PCR) (NotDetected) M. pneumoniae (PCR) (NotDetected) Parainfluenza 1 (PCR) (NotDetected) Parainfluenza 2 (PCR) (NotDetected) Parainfluenza 3 (PCR) (NotDetected) Parainfluenza 4 (PCR) (NotDetected) RSV (PCR) (NotDetected) Entero/Rhino (PCR) (NotDetected) Blood Type O Positive Antibody Screen NEGATIVE Imaging Data Attestation: I personally reviewed and interpreted this imaging study as follows: My Impression: Chest x-ray viewed by me shows bilateral fluffy infiltrates cardiomegaly and cephalization. Radiologist's Impression: Chest X-Ray 04/22/23 11:12 XR chest 1V portable CLINICAL HISTORY: Sepsis TECHNIQUE: Single frontal radiograph of the chest was obtained. Comparison: Comparison is made to chest radiograph 12/07/2022 FINDINGS: No lines and tubes are seen. Cardiomegaly is noted. Multifocal airspace opacities are seen. No evidence of pleural effusion or pneumothorax. IMPRESSION: Multifocal airspace opacities may represent atelectasis, pneumonia, and/or aspiration. ACT 112: Negative or not required by law. Electronically signed by: Moi Ring M.D. 04/22/2023 11:38 AM Chest X-Ray 04/22/23 12:17 XR chest 1V portable CLINICAL HISTORY: ett placement TECHNIQUE: Single frontal radiograph of the chest was obtained. Comparison: Comparison is made to chest radiograph 04/22/2023 FINDINGS: Endotracheal tube terminates 2.6 cm from the misti. Enteric tube tip and side port lie below the diaphragm. Cardiomegaly is noted. Multifocal airspace opacities are seen. No evidence of pleural effusion or pneumothorax. IMPRESSION: Satisfactory appearance of endotracheal and enteric tubes. Stable multifocal airspace opacities. ACT 112: Negative or not required by law. Electronically signed by: Moi Ring M.D. 04/22/2023 12:32 PM ECG Data Attestation: I personally reviewed and interpreted this ECG as follows: Interpretation: Sinus tachycardia with rate of 147. VT 88 QRS [address] elevation or ST depression. MDM Narrative 1112: The patient was evaluated in room B1. A complete history and physical exam was performed Cardiac monitoring: An order was placed for continuous cardiac monitoring. The monitor shows a rate of 130 with sinus rhythm interpreted by me Patient tachypneic. Oxygen saturation in the 20s on room air. Patient switched to BiPAP. 1120: Chest x-ray viewed by me shows bilateral fluffy infiltrates cardiomegaly and cephalization. 1145: Mbcia-nv-bfsu creatinine 2.4 dwjld-tb-rqfa potassium of 5. Eudbg-kl-qymm VBG shows venous pH is 7.148 venous pCO2 34.6. 1155: Patient is still tachypneic with respiratory rate in the 40s. Patient currently on BiPAP FiO2 50% 04/05. Patient is becoming hypotensive with a manual blood pressure 70/40. Normal saline 500 cc bolus ordered for the patient. Discussed the case with Dr. Neal PALOMO who states that the patient has a history of being intubated and aortic stenosis. He recommends starting patient on a Levophed drip to improve her blood pressure and once the pressure is better to intubate the patient and admit her to the ICU. 1225: Patient intubated. See procedure note. 1240: Patient becoming more tachycardic and blood pressure going up Levophed drip discontinued. Impression & Plan Respiratory failure Critical Care Time Critical Care Time: Yes Total Critical Care Time: 54 I have personally spent greater than 54 minutes of critical care time in the direct management of this patient. This includes bedside care, interpretation of diagnostic studies, and testing, discussion with consultants, patient, and family members, and other required patient management activities. This 54 minutes is in excess of all separately billable procedures. Discharge Plan Visit Data Chief Complaint: Shortness of Breath/Dyspnea Stated Complaint: breathing difficulty ED Provider: Tony Jernigan Discharge Problem: Respiratory failure Patient Disposition: Admitted As Inpatient Discharge Instructions Interventions: ED Discharge Assessment Last Done: 04/22/23 12:44 Discharge Problem: Respiratory failure Qualifiers: Chronicity: acute Respiratory failure complication: hypoxia Qualified Code(s): J96.01 - Acute respiratory failure with hypoxia
[2023-04-22] MEDS: HEPARIN SOD 5,000 UNIT/0.5 ML VIAL SQ SCH (18:33)
[2023-04-22] MEDS ORDERED: PANTOprazole 40 MG in SYRINGE 0 ML IV ONE (19:00)
[2023-04-22] MEDS ORDERED: PATIROMER CALCIUM SORBITEX 8.4 GM PACK PO ONE (19:51)
[2023-04-22 20:41] LABS: iSTAT Arterial Blood Gas HCO3 22 meg/L (19-24); iSTAT Arterial Blood Gas pCO2 37 mmHg (35-46); iSTAT Arterial Blood Gas pH 7.39 (7.35-7.45); iSTAT Arterial Blood Gas pO2 83 mmHg (80-95); iSTAT Carbon Dioxide 23 mmol/L (24-31); iSTAT Hematocrit 24 % (37-47); iSTAT Hemoglobin 8.2 g/dl (12.0-16.0); iSTAT Potassium 4.5 mmol/L (3.3-5.0); iSTAT Sodium 132 mmol/L (135-144)
[2023-04-22] MEDS: LANTUS PER UNIT CHARGE SQ SCH (20:43)
[2023-04-22 20:46] LABS: BUN Creatinine Ratio 18.6 (10-20); Calcium 7.6 mg/dl (8.6-10.3); Creatinine Clr Calc Pharmacy 39.3 ml/min; Est GFR (African American) 39.5 ml/min; Est GFR (Non-African American) 34.1 ml/min; Potassium 4.6 mmol/L (3.5-5.1)
[2023-04-22] MEDS: CEFEPIME 2,000 MG in SYRINGE 0 ML IV SCH (21:16)
[2023-04-22] MEDS: levETIRAcetam 500 MG in SODIUM CHLOR 0.9% MINI-B 100 ML IV SCH (21:22)
[2023-04-22] MEDS ORDERED: CEFEPIME 1,000 MG in SYRINGE 0 ML IV SCH (23:00)
[2023-04-23] MEDS ORDERED: ACETAMINOPHEN SUSP 500 MG/15.6 ML UDP PO PRN (00:08)
[2023-04-23] MEDS: INSULIN ASPART PER UNIT CHARGE SC SCH ×4 (01:02→17:31)
[2023-04-23] MEDS: propofoL 1,000 MG/100 ML VIAL IV SCH ×6 (01:27→23:21)
[2023-04-23 05:26] LABS: iSTAT Arterial Blood Gas HCO3 22 meg/L (19-24); iSTAT Arterial Blood Gas pCO2 36 mmHg (35-46); iSTAT Arterial Blood Gas pO2 108 mmHg (80-95); iSTAT Carbon Dioxide 23 mmol/L (24-31); iSTAT Hematocrit 27 % (37-47); iSTAT Hemoglobin 9.2 g/dl (12.0-16.0); iSTAT Potassium 4.3 mmol/L (3.3-5.0); iSTAT Sodium 137 mmol/L (135-144)
[2023-04-23 06:32] LABS: Basophils # (auto) 0.06 K/uL (0.00-0.20); Basophils % (auto) 0.3 %; Eosinophils # (auto) 0.21 K/uL (0.00-0.50); Hematocrit (blood only) 27.4 % (37.0-47.0); Hemoglobin 8.8 g/dl (12.0-16.0); Immature Granulocytes # (auto) 0.13 K/uL (0.01-0.20); Immature Granulocytes % (auto) 0.6 %; Lymphocytes # (auto) 2.69 K/uL (1.20-3.40); Lymphocytes % (auto) 13.1 %; Mean Corpuscular Hgb Conc 32.1 g/dL (32.0-36.0); Mean Platelet Volume 11.7 fL (9.4-12.4); Monocytes # (auto) 0.94 K/uL (0.11-0.59); Monocytes % (auto) 4.6 %; Neutrophils # (auto) 16.56 K/uL (1.40-6.50); Neutrophils % (auto) 80.4 %; Platelet Count 251 K/uL (130-400); RDW Coefficient of Variation 18.1 % (11.5-14.5); Red Blood Count 3.26 M/uL (4.20-5.40); White Blood Count 20.59 K/ul (4.8-10.8)
[2023-04-23 06:56] LABS: Calcium 8.2 mg/dl (8.6-10.3); Creatinine Clr Calc Pharmacy 42.2 ml/min; Est GFR (African American) 42.4 ml/min; Est GFR (Non-African American) 36.6 ml/min; Magnesium 1.8 mg/dl (1.7-2.4); Potassium 4.3 mmol/L (3.5-5.1)
[2023-04-23 07:12] LABS: Estimated Average Glucose 105 mg/dl; Hemoglobin A1C 5.3 % (4.5-5.6)
--- NOTE | 2023-04-23 07:24 | Critical Care Progress Note ---
Date of Service April 23, 2023 Assessment & Plan (1) Acute respiratory failure: (2) Sepsis: (3) Polysubstance abuse: (4) Seizure disorder: (5) Multifocal pneumonia: (6) HTN (hypertension): (7) HLD (hyperlipidemia): (8) Aortic stenosis: (9) Depression: (10) AJIT (acute kidney injury): (11) Coronary artery disease: (12) High anion gap metabolic acidosis: Plan Reason Critically Ill: 43-year-old female past medical history of polysubstance abuse on Suboxone, aortic stenosis moderate coronary artery disease presented to hospital with shortness of breath Neuro - [facility] ICU: Unable to assess Fentanyl and propofol for sedation Patient was moving all her extremities and talking when presented to the ED. No indication for CT of the head right now U tox was negative for everything except for ecstasy, ecstasy could be falsely positive in somebody was taking escitalopram. --History of depression On escitalopram along with trazodone at home Cardiac - --Elevated troponin Likely type II OR Continue trend EKG and troponin EKG 04/22/2023, 12:42 PM: Sinus tachycardia, normal axis, no ST-T wave changes appreciated -- Coronary artery disease On Plavix and aspirin along with atorvastatin at home --Pulmonary hypertension Type II with moderate aortic stenosis On spironolactone, metoprolol succinate 25 mg as well as torsemide at home Right heart cath 12/10/2022: Interestingly showed normal wedge of 9 as well as normal PA pressure RA 2 RV 28/6 PA. 23/10 (14) PAWP 9 LV 9 2D echo 12/05/2022: EF greater than 70%, mild concentric LVH, mild to moderate pulmonary hypertension, PASP 50 mmHg, mild to moderate aortic stenosis, RV normal in size and function Respiratory - -- VDRF with acute hypoxic respiratory failure Factorial Continue with ventilatory support Keep RASS -1 Respiratory bio fire negative for everything BNP 198 Nasal MRSA negative Follow-up urine Legionella Patient did have bronchoscopy on the previous admission which was 12/05/2022, neutrophilic and monocytic, bronc cultures were negative for everything, lavage cytology was negative except for chronic inflammatory cells Beta D glucan was negative at that time --Abnormal chest CT Underlying [employer] with his other autoimmune processes cannot be ruled out Follow-up autoimmune workup GI - --Mild elevation of AST Likely from type II OR Continue to trend RENAL/LYTES - -- HAGMA Delta-delta: Less than 1, gap plus nongap Gap is likely from metabolic acidosis, nongap could be from renal loss. UA negative for ketones Urinary gap Positive, likely the cause of non-anion gap acidosis Osmolar gap was negative Monitor -- AJIT on CKD --> improving Monitor BUN/creatinine Avoid nephrotoxic medications Strict ins and outs ENDO - --Diabetes type 2 ICU hypoglycemia protocol HEME - -- Normocytic anemia Monitor H&H ID - -- Leukocytosis Questionable pneumonia, UA clean Continue with Zosyn, vancomycin discontinued 04/23/2023 as nasal MRSA negative Follow-up culture and sputum culture ESR 36, CRP 19.8 Procalcitonin 4.33 --Prophylaxis VTE: Heparin on hold GI: Pantoprazole Lines: Right IJ, left radial, positive [place], positive ETT Diet: Start tube feeds Plan: In/out: -89 mL, urine output 1750 AB.40/36/108 on 40%, I went down on FiO2 to 30% and decrease the respiratory to 20. Patient was breathing over the vent Try to titrate the patient off of vasopressors while keeping the MAP greater than 65 CT chest without contrast to be done later today Patient will have bronchoscopy done today to send for BAL. Magnesium being replaced Start patient on tube feeds Hemoglobin is trending down. Repeat H&H later today 2D echo to be done to look at the right-sided pressures Pathology consult to look at the peripheral smear for immature granulocytes I have personally spent 42 minutes of critical care time in the direct management of this patient. This is a life/limb threatening event. This includes time spent evaluating patient, direct bedside care, chart review, placing orders, interpretation of diagnostic studies, discussion with consultants, patient, and family members, as well as other required patient management activities. This time is exclusive of all separately billable procedures, and teaching time and separate from and in addition to any other critical care service time. Admission and Anticipated Discharge Date Admission Date: April 22, 2023 Subjective Patient seen and examined at bedside. No acute distress, no deficits overnight She was on Levophed 0.05 at the time of examination with map in the mid 70s Propofol 40, fentanyl 75 She was RASS -1 and answering questions appropriately. Moving all the extremities. She is spiking fever low-grade, Tmax 37.8 Review of Systems 2 Review of Systems: All systems reviewed & are unremarkable except as noted in Subjective Physical Exam 2 Physical Exam: Constitutional: No acute distress HEENT: PERRLA left eye, right eye pupil deformed, EOMI Respiratory system: Decreased air entry bilaterally, no wheeze, no rhonchi, positive crackles bilateral lower lobes CVS: S1-S2 positive, positive 3 out of 6 systolic murmur appreciated best at apex, tachycardia Abdomen: Soft, nontender, nondistended, positive bowel sounds x4 Extremities: +2 pulses bilaterally radialis/ dorsalis pedis, no cyanosis, minimal pitting edema bilateral lower extremity Neuro: Intubated, sedated, RASS -1, moving all extremities on command Psych: Unable to assess G/U: Positive [place] Skin: no rashes, warm and dry Lymphatic: no cervical or axillary lymphadenopathy Results & Data Results & Data Vital Signs (Past 12 Hours) Vital Signs Temp Pulse Resp BP Pulse Ox O2 Del Method FiO2 04/23/23 06:20 37.7 C H 98 H 26 H 97 04/23/23 06:10 37.7 C H 100 H 26 H 97 04/23/23 06:00 37.7 C H 98 H 26 H 96 04/23/23 05:50 37.7 C H 100 H 28 H 96 04/23/23 05:40 37.7 C H 103 H 27 H 95 04/23/23 05:30 37.7 C H 105 H 27 H 95 04/23/23 05:20 37.7 C H 110 H 32 H 95 04/23/23 05:10 37.7 C H 99 H 27 H 96 04/23/23 05:09 37.7 C H 100 H 26 H 96 04/23/23 05:09 123/73 04/23/23 05:00 37.7 C H 99 H 26 H 97 04/23/23 04:50 37.7 C H 100 H 27 H 96 04/23/23 04:40 37.7 C H 99 H 26 H 97 04/23/23 04:30 37.7 C H 100 H 26 H 96 04/23/23 04:20 37.7 C H 99 H 26 H 97 04/23/23 04:10 37.7 C H 98 H 26 H 96 04/23/23 04:00 37.7 C H 97 H 26 H 96 04/23/23 04:00 98 H 04/23/23 04:00 40 04/23/23 03:50 37.7 C H 96 H 26 H 97 04/23/23 03:40 37.7 C H 98 H 26 H 96 04/23/23 03:30 98 H 27 H 96 40 04/23/23 03:30 37.7 C H 97 H 27 H 96 04/23/23 03:20 37.7 C H 98 H 26 H 96 04/23/23 03:10 37.7 C H 98 H 26 H 96 04/23/23 03:00 37.8 C H 100 H 28 H 96 04/23/23 02:50 37.8 C H 104 H 28 H 96 04/23/23 02:40 37.8 C H 102 H 27 H 95 04/23/23 02:30 37.8 C H 102 H 29 H 96 04/23/23 02:20 37.8 C H 103 H 29 H 95 04/23/23 02:10 37.8 C H 102 H 28 H 95 04/23/23 02:00 37.8 C H 102 H 28 H 95 04/23/23 01:50 37.8 C H 100 H 26 H 95 04/23/23 01:40 37.8 C H 101 H 28 H 95 04/23/23 01:30 37.8 C H 100 H 26 H 95 04/23/23 01:20 37.8 C H 101 H 27 H 95 04/23/23 01:10 37.8 C H 98 H 27 H 95 04/23/23 01:00 37.8 C H 97 H 27 H 95 04/23/23 00:50 37.8 C H 97 H 27 H 95 04/23/23 00:40 37.8 C H 98 H 26 H 95 04/23/23 00:30 37.8 C H 98 H 27 H 95 04/23/23 00:20 37.8 C H 99 H 28 H 95 04/23/23 00:10 37.9 C H 100 H 26 H 95 04/23/23 00:00 37.9 C H 99 H 27 H 94 04/23/23 00:00 99 H 04/23/23 00:00 99 H 04/23/23 00:00 40 04/22/23 23:50 37.9 C H 96 H 27 H 95 04/22/23 23:48 98 H 28 H 95 40 04/22/23 23:40 37.9 C H 95 H 26 H 95 04/22/23 23:30 37.9 C H 96 H 26 H 95 04/22/23 23:20 37.9 C H 96 H 27 H 96 04/22/23 23:10 37.9 C H 99 H 27 H 95 04/22/23 23:00 37.9 C H 101 H 27 H 95 04/22/23 22:50 37.9 C H 98 H 27 H 95 04/22/23 22:40 37.9 C H 98 H 27 H 95 04/22/23 22:30 37.9 C H 100 H 29 H 95 04/22/23 22:20 37.9 C H 99 H 26 H 95 04/22/23 22:10 37.9 C H 99 H 26 H 95 04/22/23 22:00 37.9 C H 98 H 27 H 95 04/22/23 21:50 37.8 C H 99 H 26 H 95 04/22/23 21:40 37.8 C H 99 H 26 H 95 04/22/23 21:30 37.8 C H 100 H 27 H 95 04/22/23 21:20 37.8 C H 97 H 27 H 95 04/22/23 21:10 37.8 C H 95 H 27 H 95 04/22/23 21:00 37.7 C H 97 H 27 H 95 04/22/23 20:50 37.7 C H 97 H 27 H 95 04/22/23 20:40 37.7 C H 96 H 28 H 95 04/22/23 20:30 37.7 C H 97 H 28 H 95 04/22/23 20:20 37.6 C H 97 H 26 H 94 04/22/23 20:10 37.6 C H 97 H 26 H 94 04/22/23 20:00 37.6 C H 92 H 27 H 95 04/22/23 20:00 40 04/22/23 19:50 37.6 C H 92 H 26 H 95 04/22/23 19:44 Mechanical Vent 04/22/23 19:40 37.6 C H 93 H 28 H 95 04/22/23 19:31 37.6 C H 93 H 28 H 95 04/22/23 19:31 111/65 04/22/23 19:30 37.6 C H 93 H 27 H 95 Laboratory Results 04/23/23 05:55 04/23/23 05:55 Coding Level of Care Code 47812 CRITICAL CARE 1ST 30-74M Diagnoses Acute respiratory failure J96.00 Sepsis A41.9 Polysubstance abuse F19.10 Seizure disorder G40.909 Multifocal pneumonia J18.9 HTN (hypertension) I10 HLD (hyperlipidemia) E78.5 Aortic stenosis I35.0 Depression, unspecified depression type F32.9 Depression Type: unspecified AJIT (acute kidney injury) N17.9 Coronary artery disease I25.10 High anion gap metabolic acidosis E87.29 Time Spent (min) 42 (9) Depression Depression Type: unspecified Qualified Code(s): F32.9 - Major depressive disorder, single episode, unspecified
[2023-04-23] MEDS: MAGNESIUM SULFATE / D5W 1 GM/100 ML BAG IV SCH ×2 (08:25→10:30)
[2023-04-23] MEDS: ICU Protocol for HYPERglycemia SCH (08:26)
[2023-04-23] MEDS ORDERED: ROCURONIUM BROMIDE 10 MG/ML 5 ML VIAL IV ONE (08:29)
[2023-04-23] MEDS ORDERED: MIDAZOLAM HCL 1 MG/ML 2ML VIAL IV ONE (08:29)
[2023-04-23] MEDS ORDERED: fentaNYL citrate PF 100 MCG/2 ML VIAL IV ONE (08:29)
[2023-04-23] MEDS ORDERED: ETOMIDATE 2 MG/ML 20 ML VIAL IV ONE (08:29)
--- NOTE | 2023-04-23 08:31 | XRay Report ---
XR chest 1V portable HISTORY: 43 years-old Female f/u acute respiratory failure COMPARISON: 04/22/2023 TECHNIQUE: AP view of the chest FINDINGS: Endotracheal tube overlies the midline, approximately 3 cm superior to the misti. Right IJ central v enous catheter is noted with distal tip in the SPECT location of the mid to inferior SVC. An enteric tube courses into the stomach with distal tip outside the [id number]. No pneumothorax. Small pleural effusions are noted. Pulmonary vascular congestion with interstitial c oarsening and bibasilar airspace opacities which are mildly improved. IMPRESSION: 1. Cardiomegaly with findings suggestive of improving pulmonary edema. 2. Lines and tubes as above. 3. Small pleural effusions with persistent bibasilar opacities, also mildly improved. ACT 112: Negative or not required by law. The above report was generated using voice recognition software. It may contain grammatical, syntax o r spelling errors. Electronically signed by: Federico Eli M.D. 04/23/2023 8:29 AM
[2023-04-23] MEDS: NOREPINEPHRINE/D5W 4 MG/250 ML PLCT IV SCH ×2 (08:44→20:20)
[2023-04-23] MEDS: fentaNYL BOLUS from BAG IV PRN (09:18)
--- NOTE | 2023-04-23 10:14 | Procedure Note ---
Procedure Note: Bronchoscopy Procedure PREOPERATIVE DIAGNOSIS: Multilobar pneumonia with acute hypoxic respiratory failure POSTOPERATIVE DIAGNOSIS: Multilobar pneumonia with acute hypoxic respiratory failure PROCEDURE PERFORMED: Flexible fiberoptic bronchoscopy with bronchoalveolar lavage COMPLICATIONS: None. INDICATION: Rule out infection PROCEDURE: After obtaining dual physician consent and informing the patient's partner on the phone, plan to proceed with bronchoscopy was made. The patient had appropriate oxygen, blood pressure, heart rate, and respiratory rate monitoring applied and monitored continuously throughout the procedure. Patient was already intubated and was on propofol and fentanyl for sedation. FiO2 was increased to 100% and PEEP was decreased to 6 She was given total of 60 mg of propofol and 100 of fentanyl during the procedure. Disposable flexible bronc was introduced through the ET tube The trachea appeared normal.The bronchoscope was then advanced through the misti, which was sharp. The scope was then advanced into the right main stem and each segment, subsegement in the right upper lobe, right middle lobe and right lower lobe were visualized. There were minimal amount of clear secretion which was suctioned out. Minimal ecchymosis is appreciated at the uptake of right middle lobe. There were no other findings including evidence of mass, anatomic distortions, or hemorrhage. The bronchoscope was subsequently withdrawn and advanced into the left mainstem. Again, each segment and subsegment was well visualized. No specific masses or other lesions were identified throughout the tracheobronchial tree on the left. There was minimal amount of clear secretions which were suctioned out. Moderate amount of ecchymosis was appreciated at the uptake of left upper lobe with no active bleeding The bronchoscope was then wedged in the right lower lobe and bronchoalveolar lavage samples were obtained. 60 ml of saline was instilled and 35 ml of fluid was aspirated back.The bronchoscope was withdrawn and the area was suctioned clear. The bronchoscope was then wedged in the left lower lobe and bronchoalveolar lavage samples were obtained. 90 ml of saline was instilled and 40 ml of fluid was aspirated back.The bronchoscope was withdrawn and the area was suctioned clear. The bronchoscope was then withdrawn to the mainstem. The area was suctioned clear. The bronchoscope was then withdrawn. The patient tolerated the procedure well without evidence of desaturation or complications. Bronchoalveolar lavage samples were sent for cell count, Gram stain and bacterial culture, AFB culture and smear, fungal culture and smear, flow cytometry, PJP PCR, and cytology. Recommendations: Follow-up micro, cytology Follow-up chest x-ray Please note the above document was generated using voice recognition software. It may contain grammatical, syntax or spelling errors.Any formal questions or concerns about the content, text or information contained within the body of this dictation should be directly addressed to the provider for clarification. [facility] [place] Codes (Charges) Pulmonary/Thoracic Procedure 1: Pulmonary and Thoracic: 13167 Dx bronchoscopy/BAL
--- NOTE | 2023-04-23 10:24 | Electrocardiogram Report ---
Test Reason : Blood Pressure : / mmHG Vent. Rate : 141 BPM Atrial Rate : 141 BPM P-R Int : 136 ms QRS Dur : 086 ms QT Int : 280 ms P-R-T Axes : 064 051 215 degrees QTc Int : 428 ms Sinus tachycardia Abnormal ECG When compared with ECG of 06-DEC-2022 05:24, T wave inversion now evident in Inferior leads Nonspecific T wave abnormality now evident in Lateral leads Confirmed by Liu Harrington ([id number]) on 04/23/2023 10:23:51 AM Referred By: REFERRED SELF Confirmed By:Angus Harrington
[2023-04-23] MEDS: levETIRAcetam 500 MG in SODIUM CHLOR 0.9% MINI-B 100 ML IV SCH ×2 (10:28→21:08)
[2023-04-23] MEDS: LANTUS PER UNIT CHARGE SQ SCH ×2 (10:28→20:34)
[2023-04-23] MEDS ORDERED: PEPTAMEN INTENSE VHP 1.0 CAL 1,000 ML BAG OG SCH (11:00)
[2023-04-23 11:04] LABS: Eosinophil Body Fluid Man 2 %; Fluid Mono/Macrophage 49 %; Lymphocyte Body Fluid Man 2 %; Neutrophil Body Fluid Man 47 %
[2023-04-23] MEDS: PANTOprazole 40 MG in SYRINGE 0 ML IV SCH (11:32)
[2023-04-23] MEDS: CEFEPIME 2,000 MG in SYRINGE 0 ML IV SCH ×2 (11:37→23:11)
[2023-04-23] MEDS: TUBE FEEDING WATER FLUSH OG SCH ×3 (11:43→20:19)
[2023-04-23 11:49] LABS: Hematocrit (blood only) 27.2 % (37.0-47.0); Hemoglobin 8.9 g/dl (12.0-16.0)
--- NOTE | 2023-04-23 12:02 | Electrocardiogram Report ---
Test Reason : Blood Pressure : / mmHG Vent. Rate : 104 BPM Atrial Rate : 104 BPM P-R Int : 140 ms QRS Dur : 092 ms QT Int : 354 ms P-R-T Axes : 059 054 045 degrees QTc Int : 465 ms Sinus tachycardia Otherwise normal ECG When compared with ECG of 22-APR-2023 12:42, (unconfirmed) T wave inversion no longer evident in Inferior leads Nonspecific T wave abnormality no longer evident in Lateral leads Confirmed by Liu Harrington ([id number]) on 04/23/2023 12:01:34 PM Referred By: REFERRED SELF Confirmed By:Angus Harrington
--- NOTE | 2023-04-23 12:33 | Hospitalist Progress Note ---
Date of Service April 23, 2023 Assessment & Plan (1) Acute respiratory failure: Plan: Secondary to possible pneumonia with sepsis Remains intubated on pressors and sedation Clinically better Appreciate process controller input and recommendation Status post bronchoscopy-bronchial lavage was sent for test Will continue with current antibiotic (2) Septic shock: Plan: Sepsis with shock and respiratory failure likely related to pneumonia. Cont ICU vent management, broad abx, pressor support while awaiting culture results and clinical improvement. Patient is a smoker increasing her risk for pneumonia. Lactic acid has been normalized Still requiring small doses of norepinephrine to maintain blood pressure (3) Multifocal pneumonia: Plan: ICU/pulm worked up significantly with bronch last admission. She appears to have a new, bacterial process. Biofire is negative. Continue on broad spectrum abx. Has been on Zosyn,cefepime and azithromycin was added to cover atypicals. Vancomycin has been discontinued with negative MRSA Status post bronchoscopy in the [facility] was sent for study-no one was available to get the consent so the consent was signed by 2 physicians before the procedure. Clinically better with improving white cell count to 21 K and without any fever Sputum culture and blood cultures are pending BAL has been sent for studies (4) Acute renal failure: Plan: Initial creatinine was 2/, which is improving closer to baseline with marianne atment. Received intravenous fluid Creatinine has improved to 1.67 Will monitor PRP Nutritional support Add tube feeding has been started from today (5) Demand ischemia: Plan: Likely the cause for elevated troponin is demand ischemia in the setting shock with known CAD disease and valvulopathy. Mildly increased troponin without significant improvement does not support ACS (6) Chronic diastolic CHF (congestive heart failure): Plan: Chronic, low normal BNP. Pt appears euvolemic to dry. Hold torsemide in setting of shock. Cautious fluid administration in the ER. Has not been getting any intravenous fluid 2D echo 12/05/2022: EF greater than 70%, mild concentric LVH, mild to moderate pulmonary hypertension, PASP 50 mmHg, mild to moderate aortic stenosis, RV normal in size and function (7) Aortic stenosis: Plan: Known history of this. Cont to monitor with yearly echocardiogram. Followed by cardiology. (8) Depression: Plan: Chronic, stable. Cont escitalopram per home regimen. Also takes buspar, flexeril and trazodone at night which was recently increased. (9) Coronary artery disease: Plan: Chronic, stable. elevated trop is likely related to demand ischemia in septic shock. Cont home meds when able to tolerate PO. (10) Diabetes mellitus, type 2: Plan: chronic, stable. A1C reflects good overall control. Hold metformin and utilize insulin for glucose management while hospitalized. (11) Hypertension: Plan: Chronic, currently in shock state. Hold all antihypertensives. Came in with septic shock and low blood pressure Requiring small doses of norepinephrine to maintain the blood pressure Pulmonary hypertension Type II with moderate aortic stenosis Has been on spironolactone, metoprolol succinate as well as torsemide at home Echo in November of this year did not show any pulmonary hypertension (12) Polysubstance abuse: Plan: History of this, currently taking suboxone, Lexapro, gabapentin, buspar, flexeril and trazodone, also. (13) Anemia, iron deficiency: Plan: Chronic, present but at her baseline. Likely related to chronic disease. Cont to monitor. Hold iron while hospitalized to avoid unwanted side effects. (14) Seizure disorder: Plan: Chronic, stable. Cont home meds in IV form while intubated. RESTART HOME ORAL MEDS ONCE ABLE. DVT proph: heparin GI proph: protonix Full Code Dispo- ICU Admission and Anticipated Discharge Date Admission Date: April 22, 2023 Subjective 04/23/2023 The patient was seen and examined in telemetry with ICU status She remains intubated at secondary to severe sepsis and requiring pressors to maintain blood pressure Has been responding to vocal commands by opening eyes and also squeezing fingers and moving the toes Clinically better Review of Systems Review of Systems: Unobtainable due to endotracheal tube Physical Exam Physical Exam: Lying in bed without any acute distress. Remains on mechanical ventilator and on sedation Constitutional: well developed, well nourished, + ill appearing and + obese Eyes: PERRL, conjunctivae normal, anicteric sclerae ENMT: external ear and nose normal, oropharynx normal Neck: trachea midline, no thyromegaly Respiratory: + respiratory distress (Minimal distress at rest on vent) A uscultation: + diminished lung sounds and + crackles (Coarse crackles all over) Cardiovascular: Rate/Rhythm: regular rate and regular rhythm; not tachycardic Heart Sounds: normal S1, normal S2 and + murmur (2/6 ESM over precordium) Extremities: + edema (Trace edema bilaterally) Gastrointestinal (Abdomen): Inspection/Auscultation: normal bowel sounds; abdomen not distended Percussion/Palpation: abdomen nontender Musculoskeletal: No acute arthritis involving any of the joint Neurologic: Remains intubated and on sedation. Moving all limbs and commands Lymphatic: no cervical or axillary lymphadenopathy Results & Data Results & Data Vital Signs (Past 12 Hours) Vital Signs Temp Pulse Resp BP Pulse Ox O2 Del Method O2 Flow Rate 04/23/23 10:00 37.2 C 86 26 H 94 04/23/23 09:59 Mechanical Vent 04/23/23 09:00 37.4 C 93 H 29 H 99 04/23/23 08:29 Mechanical Vent 04/23/23 08:00 37.5 C 95 H 26 H 98 04/23/23 08:00 04/23/23 08:00 Mechanical Vent 04/23/23 08:00 99 H 04/23/23 07:54 94 H 26 H 95 04/23/23 07:30 37.6 C H 96 H 26 H 97 Mechanical Vent 40 04/23/23 07:02 37.6 C H 99 H 26 H 114/63 98 Mechanical Vent 40 04/23/23 06:20 37.7 C H 98 H 26 H 97 04/23/23 06:10 37.7 C H 100 H 26 H 97 04/23/23 06:00 37.7 C H 98 H 26 H 96 04/23/23 05:50 37.7 C H 100 H 28 H 96 04/23/23 05:40 37.7 C H 103 H 27 H 95 04/23/23 05:30 37.7 C H 105 H 27 H 95 04/23/23 05:20 37.7 C H 110 H 32 H 95 04/23/23 05:10 37.7 C H 99 H 27 H 96 04/23/23 05:09 37.7 C H 100 H 26 H 96 04/23/23 05:09 123/73 04/23/23 05:00 37.7 C H 99 H 26 H 97 04/23/23 04:50 37.7 C H 100 H 27 H 96 04/23/23 04:40 37.7 C H 99 H 26 H 97 04/23/23 04:30 37.7 C H 100 H 26 H 96 04/23/23 04:20 37.7 C H 99 H 26 H 97 04/23/23 04:10 37.7 C H 98 H 26 H 96 04/23/23 04:00 37.7 C H 97 H 26 H 96 04/23/23 04:00 98 H 04/23/23 04:00 04/23/23 03:50 37.7 C H 96 H 26 H 97 04/23/23 03:40 37.7 C H 98 H 26 H 96 04/23/23 03:30 98 H 27 H 96 04/23/23 03:30 37.7 C H 97 H 27 H 96 04/23/23 03:20 37.7 C H 98 H 26 H 96 04/23/23 03:10 37.7 C H 98 H 26 H 96 04/23/23 03:00 37.8 C H 100 H 28 H 96 04/23/23 02:50 37.8 C H 104 H 28 H 96 04/23/23 02:40 37.8 C H 102 H 27 H 95 04/23/23 02:30 37.8 C H 102 H 29 H 96 04/23/23 02:20 37.8 C H 103 H 29 H 95 04/23/23 02:10 37.8 C H 102 H 28 H 95 04/23/23 02:00 37.8 C H 102 H 28 H 95 04/23/23 01:50 37.8 C H 100 H 26 H 95 04/23/23 01:40 37.8 C H 101 H 28 H 95 04/23/23 01:30 37.8 C H 100 H 26 H 95 04/23/23 01:20 37.8 C H 101 H 27 H 95 04/23/23 01:10 37.8 C H 98 H 27 H 95 04/23/23 01:00 37.8 C H 97 H 27 H 95 04/23/23 00:50 37.8 C H 97 H 27 H 95 04/23/23 00:40 37.8 C H 98 H 26 H 95 04/23/23 00:30 37.8 C H 98 H 27 H 95 04/23/23 00:20 37.8 C H 99 H 28 H 95 FiO2 04/23/23 10:00 04/23/23 09:59 04/23/23 09:00 04/23/23 08:29 04/23/23 08:00 04/23/23 08:00 40 04/23/23 08:00 40 04/23/23 08:00 04/23/23 07:54 40 04/23/23 07:30 04/23/23 07:02 04/23/23 06:20 04/23/23 06:10 04/23/23 06:00 04/23/23 05:50 04/23/23 05:40 04/23/23 05:30 04/23/23 05:20 04/23/23 05:10 04/23/23 05:09 04/23/23 05:09 04/23/23 05:00 04/23/23 04:50 04/23/23 04:40 04/23/23 04:30 04/23/23 04:20 04/23/23 04:10 04/23/23 04:00 04/23/23 04:00 04/23/23 04:00 40 04/23/23 03:50 04/23/23 03:40 04/23/23 03:30 40 04/23/23 03:30 04/23/23 03:20 04/23/23 03:10 04/23/23 03:00 04/23/23 02:50 04/23/23 02:40 04/23/23 02:30 04/23/23 02:20 04/23/23 02:10 04/23/23 02:00 04/23/23 01:50 04/23/23 01:40 04/23/23 01:30 04/23/23 01:20 04/23/23 01:10 04/23/23 01:00 04/23/23 00:50 04/23/23 00:40 04/23/23 00:30 04/23/23 00:20 Laboratory Results Short CBC 04/22/23 04/23/23 04/23/23 Range/Units 15:04 05:55 10:14 WBC 34.23 H* 20.59 H (4.8-10.8) K/ul Hgb 9.7 L 8.8 L 8.9 L (12.0-16.0) g/dl Hct 30.5 L 27.4 L 27.2 L (37.0-47.0) % Plt Count 234 251 (130-400) K/uL BMP 04/22/23 04/22/23 04/23/23 14:06 20:06 05:55 Sodium 130 L 133 L 137 Potassium 5.6 H 4.6 4.3 Chloride 102 103 106 Carbon Dioxide 16 L 24 24 BUN 34 H 33 H 30 H Creatinine 1.93 H D 1.77 H 1.67 H Glucose 145 H 140 H 103 H Calcium 7.6 L 7.6 L 8.2 L Cardiac Enzymes 04/23/23 Range/Units 05:55 Total Creatine Kinase 131 (26-192) U/L Liver Function 04/22/23 Range/Units 14:06 Total Bilirubin 0.5 (0.2-1.0) mg/dl AST 53 H (13-39) U/L ALT 11 (7-52) U/L Alkaline Phosphatase 69 (34-104) U/L Albumin 3.0 L (3.4-5.0) gm/dl Urine 04/22/23 Range/Units 12:38 Urine Color Yellow Urine Appearance Clear (Clear) Urine pH 5.0 (4.5-7.5) Ur Specific Depue 1.012 (1.000-1.030) Urine Protein Negative (Negative) Urine Glucose (UA) Negative (Negative) Medications Administered Current Inpatient Medications Acetaminophen (Acetaminophen Susp 500 Mg/15.6 Ml Udp) 500 mg PO Q6H PRN PRN Reason: Fever Stop: 05/23/23 00:07 Dextrose (Dextrose 50% 50 Ml Syringe) 25 - 50 ml IV UD PRN; Protocol PRN Reason: Hypoglycemia Protocol Stop: 05/22/23 13:10 Fentanyl Citrate (Fentanyl Bolus From Bag) 50 mcg IV Q60M PRN PRN Reason: Pain or Agitation Stop: 05/06/23 12:13 Last Admin: 04/23/23 09:18 Dose: 50 mcg Glucagon (Glucagon For Inj 1 Mg Vial) 1 mg SQ UD PRN; Protocol PRN Reason: Hypoglycemia Protocol Stop: 05/22/23 13:10 Glucose (Glucose 10 Tab/Tube) 4 - 8 tab PO UD PRN; Protocol PRN Reason: Hypoglycemia Treatment Stop: 05/22/23 13:10 Glucose (Glucose 40% Gel 15 Gm Tube) 15 - 30 gm PO UD PRN; Protocol PRN Reason: Hypoglycemia Protocol Stop: 05/22/23 13:10 Heparin Sodium (Porcine) (Heparin Sod 5,000 Unit/0.5 Ml Vial) 5,000 units SQ Q12 REPLACED BY [facility] Stop: 05/22/23 20:59 Last Admin: 04/22/23 18:33 Dose: Not Given Norepinephrine Bitartrate (Levophed/D5w) 4 mg in 250 mls @ 9.101 mls/hr IV .Q24H REPLACED BY [facility]; Protocol Stop: 05/22/23 12:14 Last Admin: 04/23/23 08:44 Dose: 0.03 mcg/kg/min, 9.1 mls/hr Fentanyl Citrate (Fentanyl Citrate) 2,500 mcg in 250 mls @ 5 mls/hr IV .Q50H REPLACED BY [facility]; Protocol Stop: 05/06/23 12:14 Last Titration: 04/23/23 02:41 Dose: 50 mcg/hr, 5 mls/hr Pantoprazole Sodium 40 mg/ (Syringe) 10 mls @ 5 mls/min IV DAILY@1100 REPLACED BY [facility] Stop: 05/23/23 10:59 Last Admin: 04/23/23 11:32 Dose: 5 mls/min Azithromycin 500 mg/ Dextrose 255 mls @ 125 mls/hr IV Q24H REPLACED BY [facility] Stop: 04/29/23 14:59 Last Infusion: 04/22/23 17:26 Dose: Infused Propofol (Diprivan) 1,000 mg in 100 mls @ 19.2 mls/hr IV .Q5H13M REPLACED BY [facility]; Protocol Stop: 04/25/23 16:59 Last Admin: 04/23/23 07:38 Dose: 40 mcg/kg/min, 19.2 mls/hr Levetiracetam 500 mg/ Sodium (Chloride) 105 mls @ 420 mls/hr IV Q12H REPLACED BY [facility] Stop: 05/22/23 20:59 Last Infusion: 04/23/23 10:53 Dose: Infused Cefepime HCl 2,000 mg/ Syringe 20 mls @ 5 mls/min IV Q12H REPLACED BY [facility] Stop: 04/29/23 22:59 Last Admin: 04/23/23 11:37 Dose: 5 mls/min Insulin Aspart (Insulin Aspart Per Unit Charge) 0 units SC Q6 REPLACED BY [facility] Stop: 05/22/23 16:29 Last Admin: 04/23/23 11:37 Dose: 1 units Insulin Glargine (Lantus Per Unit Charge) 10 units SQ HS WILMA Stop: 05/22/23 20:59 Miscellaneous (Carbohydrates For Hypoglycemia ) 15 - 30 gm PO UD PRN PRN Reason: Hypoglycemia Protocol Stop: 05/22/23 13:10 Multivitamins/Minerals (Multi Vit W/Minerals Liquid 15 Ml Udc) 15 ml PO QAM WILMA Stop: 05/24/23 08:59 Nutritional Formula (Peptamen Intense Vhp 1.0 Eduard 1,000 Ml Bag) 1,000 ml OG .See Protocol WILMA; Protocol Stop: 05/23/23 10:59 Last Admin: 04/23/23 11:43 Dose: 1,000 ml Propofol (Propofol Bolus From Bag) 20 mg IV Q5M PRN PRN Reason: Sedation Stop: 04/25/23 16:49 Last Admin: 04/23/23 09:18 Dose: 20 mg Sterile Water (Tube Feeding Water Flush) 30 ml OG Q4H WILMA Stop: 05/23/23 10:59 Last Admin: 04/23/23 11:43 Dose: 30 ml (8) Depression Depression Type: unspecified Qualified Code(s): F32.9 - Major depressive disorder, single episode, unspecified (10) Diabetes mellitus, type 2 Diabetes mellitus complication status: with unspecified complications Diabetes mellitus skilled nursing insulin use: without lobsterman use Qualified Code(s): E11.8 - Type 2 diabetes mellitus with unspecified complications
[2023-04-23 14:36] LABS: Fluid Mono/Macrophage 21 %; Lymphocyte Body Fluid Man 6 %; Neutrophil Body Fluid Man 73 %
[2023-04-23] MEDS ORDERED: Nursing to Pharmacy Communication SCH (15:00)
[2023-04-23] MEDS: AZITHROMYCIN 500 MG in DEXTROSE 5% 250 ML IV SCH (15:15)
[2023-04-23] MEDS: fentaNYL citrate 2,500 MCG/250 ML BAG IV SCH (16:25)
--- NOTE | 2023-04-23 17:08 | CT Scan Report ---
CT SCAN OF THE CHEST WITHOUT IV CONTRAST CLINICAL HISTORY: Respiratory failure. COMPARISON STUDY: Chest x-ray dated 04/23/2023. Chest CT dated 12/04/2022. TECHNIQUE: CT scan of the thorax was performed from the thoracic inlet to the upper abdomen. Images are reviewed in the axial, sagittal, and coronal planes. IV contrast was not administered for this ex amination as per the referring clinician. A dose lowering technique was utilized adhering to the pedro pablo palacios of [place]. The examination is significantly degraded by motion artifact, as well as by streak artifact from the arms which could not be elevated above the chest. CT DOSE: 816.14 mGy.cm FINDINGS: Thyroid: The thyroid gland is mildly enlarged and heterogeneous. Thoracic aorta: There is mild atherosclerotic calcification of the thoracic aorta, which is normal in caliber and demonstrates standard 3-vessel arch anatomy. Heart: The heart is mildly enlarged and without pericardial effusion. The coronary arteries are dense ly calcified. This is advanced for age. Lungs and pleural spaces: An endotracheal tube terminates above the misti. Evaluation of the lung pa renchyma is degraded by motion artifact. There is diffuse intralobular septal thickening. Diffuse philly undglass change is seen throughout both lungs. Air trapping is noted at the left lung base. More foca l areas of patchy airspace consolidation are seen throughout both lungs, greatest at the apices and a t the lung bases. No pneumothorax is identified. Secretions are noted in the upper trachea. Mediastinum: There is mediastinal lymphadenopathy. Prevascular nodes measure up to 11 mm in short axi s. Paratracheal nodes measure up to 18 mm in short axis. A subcarinal node measures up to 25 mm in sh ort axis. Sameera: Not well assessed without IV contrast. Axillae: There is no axillary lymphadenopathy. Upper abdomen: An enteric tube terminates below the diaphragm in the stomach. There is trace perihepa tic ascites. Skeletal structures: Degenerative change and mild hyperkyphosis is noted in the spine. There is a min imal superior endplate compression deformity of L1. No lytic or blastic bony lesions are seen. There are chronic bilateral anterior rib fractures. IMPRESSION: 1. Endotracheal and enteric tubes are in place. 2. The heart is mildly enlarged and the coronary arteries are densely calcified. This is advanced for age. 3. Diffuse intralobular septal thickening suggests fluid overload/congestive change. 4. There is diffuse groundglass change seen throughout both lungs with more focal areas of patchy air space consolidation. This could represent pulmonary edema, ARDS, and/or a nonspecific infectious/infl ammatory pneumonitis. Clinical correlation will be essential. Follow-up to resolution is recommended. 5. No pleural effusion is seen. 6. Mediastinal lymphadenopathy is nonspecific and similar previous. 7. Trace perihepatic ascites. 8. Additional findings as above. ACT 112: Negative or not required by law. Electronically signed by: Ja Villanueva M.D. 04/23/2023 5:06 PM
[2023-04-24] MEDS: TUBE FEEDING WATER FLUSH OG SCH ×4 (00:07→10:21)
[2023-04-24] MEDS: INSULIN ASPART PER UNIT CHARGE SC SCH ×5 (00:11→19:50)
[2023-04-24] MEDS: propofoL 1,000 MG/100 ML VIAL IV SCH ×2 (01:15→07:20)
[2023-04-24 05:14] LABS: Basophils # (auto) 0.06 K/uL (0.00-0.20); Basophils % (auto) 0.5 %; Eosinophils # (auto) 0.81 K/uL (0.00-0.50); Eosinophils % (auto) 6.5 %; Hematocrit (blood only) 25.2 % (37.0-47.0); Hemoglobin 8.1 g/dl (12.0-16.0); Immature Granulocytes # (auto) 0.06 K/uL (0.01-0.20); Immature Granulocytes % (auto) 0.5 %; Lymphocytes # (auto) 2.27 K/uL (1.20-3.40); Lymphocytes % (auto) 18.2 %; Mean Corpuscular Hemoglobin 26.9 pg (25.0-34.0); Mean Corpuscular Hgb Conc 32.1 g/dL (32.0-36.0); Mean Corpuscular Volume 83.7 fL (80.0-100.0); Mean Platelet Volume 11.3 fL (9.4-12.4); Monocytes % (auto) 4.8 %; Neutrophils # (auto) 8.68 K/uL (1.40-6.50); Neutrophils % (auto) 69.5 %; Platelet Count 254 K/uL (130-400); RDW Coefficient of Variation 18.2 % (11.5-14.5); RDW Standard Deviation 56.1 fL (36.4-46.3); Red Blood Count 3.01 M/uL (4.20-5.40); White Blood Count 12.48 K/ul (4.8-10.8)
[2023-04-24 05:19] LABS: Albumin Globulin Ratio 1.1 (0.9-2); Albumin Level 2.9 gm/dl (3.4-5.0); BUN Creatinine Ratio 15.4 (10-20); Bilirubin,Total 0.4 mg/dl (0.2-1.0); Calcium 8.4 mg/dl (8.6-10.3); Creatinine Clr Calc Pharmacy 49.3 ml/min; Est GFR (African American) 51.1 ml/min; Est GFR (Non-African American) 44.1 ml/min; Globulin 2.6 gm/dl (2.5-4.0); Magnesium 2.1 mg/dl (1.7-2.4); Phosphorus 3.1 mg/dl (2.5-4.9); Potassium 4.1 mmol/L (3.5-5.1); Total Protein 5.5 gm/dl (6.0-8.3)
--- NOTE | 2023-04-24 07:28 | Critical Care Progress Note ---
Date of Service April 24, 2023 Assessment & Plan (1) Acute respiratory failure: (2) Sepsis: (3) Polysubstance abuse: (4) Seizure disorder: (5) Multifocal pneumonia: (6) HTN (hypertension): (7) HLD (hyperlipidemia): (8) Aortic stenosis: (9) Depression: (10) AJIT (acute kidney injury): (11) Coronary artery disease: (12) High anion gap metabolic acidosis: Plan Reason Critically Ill: 43-year-old female past medical history of polysubstance abuse on Suboxone, aortic stenosis moderate coronary artery disease presented to hospital with shortness of breath Neuro - [facility]: Unable to assess Fentanyl and propofol for sedation Patient was moving all her extremities and talking when presented to the ED. No indication for CT of the head right now U tox was negative for everything except for ecstasy, ecstasy could be falsely positive in somebody was taking escitalopram. --History of depression On escitalopram along with trazodone at home Cardiac - --Elevated troponin Likely type II OK Continue trend EKG and troponin EKG 04/22/2023, 12:42 PM: Sinus tachycardia, normal axis, no ST-T wave changes appreciated -- Coronary artery disease On Plavix and aspirin along with atorvastatin at home --Pulmonary hypertension Type II with moderate aortic stenosis On spironolactone, metoprolol succinate 25 mg as well as torsemide at home Right heart cath 12/10/2022: Interestingly showed normal wedge of 9 as well as normal PA pressure RA 2 RV 28/6 PA. 23/10 (14) PAWP 9 LV 9 2D echo 04/23/2023: EF 65-70%, mild concentric LVH, moderate aortic stenosis, mild AR, mild TR, PASP 42 mmHg 2D echo 12/05/2022: EF greater than 70%, mild concentric LVH, mild to moderate pulmonary hypertension, PASP 50 mmHg, mild to moderate aortic stenosis, RV normal in size and function Respiratory - -- VDRF with acute hypoxic respiratory failure Factorial Continue with ventilatory support Keep RASS -1 Respiratory bio fire negative for everything BNP 198 Nasal MRSA negative Follow-up urine Legionella S/p repeat bronc 04/23/2023, follow-up cultures Patient did have bronchoscopy on the previous admission which was 12/05/2022, neutrophilic and monocytic, bronc cultures were negative for everything, lavage cytology was negative except for chronic inflammatory cells Beta D glucan was negative at that time --Abnormal chest CT Underlying MOLD CLOSER with his other autoimmune processes cannot be ruled out Follow-up autoimmune workup CT chest 04/23/2023 personally reviewed: Diffuse groundglass opacities appreciated bilaterally upper and lower lobes Mild mediastinal lymphadenopathy CAT scan of the chest seems to have improved compared to November 2022 although groundglass opacity still persist GI - --Mild elevation of AST Likely from type II OK Continue to trend RENAL/LYTES - --S/p HAGMA Delta-delta: Less than 1, gap plus nongap Gap is likely from metabolic acidosis, nongap could be from renal loss. UA negative for ketones Urinary gap Positive, likely the cause of non-anion gap acidosis Osmolar gap was negative Monitor -- AJIT on CKD --> improving Monitor BUN/creatinine Avoid nephrotoxic medications Strict ins and outs ENDO - --Diabetes type 2 ICU hypoglycemia protocol HEME - -- Normocytic anemia Monitor H&H Follow-up anemia workup ID - -- Leukocytosis Questionable pneumonia, UA clean Continue with Zosyn, vancomycin discontinued 04/23/2023 as nasal MRSA negative Pathology consult did not show any abnormalities related to immature granulocytes Follow-up culture and sputum culture --> negative to date ESR 36, CRP 19.8 Procalcitonin 4.33 --Prophylaxis VTE: Heparin on hold GI: Pantoprazole Lines: Right IJ, left radial, positive [place], positive ETT Diet: Start tube feeds Plan: In/out: -58, urine output 1870, -148 since coming to the hospital Try patient on pressure support, extubated to BiPAP if she does well Given the history of abuse she might need Precedex Patient hemoglobin is back to her baseline. Keep a close eye on it. If it goes less than 7.5 transfuse 1 unit I have personally spent 38 minutes of critical care time in the direct management of this patient. This is a life/limb threatening event. This includes time spent evaluating patient, direct bedside care, chart review, placing orders, interpretation of diagnostic studies, discussion with consultants, patient, and family members, as well as other required patient management activities. This time is exclusive of all separately billable procedures, and teaching time and separate from and in addition to any other critical care service time. Admission and Anticipated Discharge Date Admission Date: April 22, 2023 Subjective Patient seen and examined at bedside. No acute distress. No adverse events overnight She was on fentanyl 75, propofol 30 at the time of examination Saturation was 91% on 40% FiO2 She was breathing over the vent She was easily arousable, answering questions appropriately. Denied any headache, no nausea, no vomiting No chest pain, no abdominal pain Review of Systems 2 Review of Systems: All systems reviewed & are unremarkable except as noted in Subjective Physical Exam 2 Physical Exam: Constitutional: No acute distress HEENT: PERRLA left eye, right eye pupil deformed, EOMI Respiratory system: Decreased air entry bilaterally, no wheeze, no rhonchi, positive crackles bilateral lower lobes CVS: S1-S2 positive, positive 3 out of 6 systolic murmur appreciated best at aorta Abdomen: Soft, nontender, nondistended, positive bowel sounds x4 Extremities: +2 pulses bilaterally radialis/ dorsalis pedis, no cyanosis, minimal pitting edema bilateral lower extremity Neuro: Intubated, sedated, RASS -1, moving all extremities on command Psych: Unable to assess G/U: Positive [place] Skin: no rashes, warm and dry Lymphatic: no cervical or axillary lymphadenopathy Results & Data Results & Data Vital Signs (Past 12 Hours) Vital Signs Temp Pulse Resp BP Pulse Ox Pulse Ox O2 Del Method 04/24/23 06:00 37.1 C 84 21 120/68 99 Mechanical Vent 04/24/23 05:00 37.0 C 87 22 123/68 98 Mechanical Vent 04/24/23 04:00 37.3 C 82 21 119/66 99 Mechanical Vent 04/24/23 04:00 04/24/23 04:00 90 127/55 L 04/24/23 04:00 86 22 98 04/24/23 03:00 37.3 C 86 21 121/68 97 Mechanical Vent 04/24/23 02:00 37.3 C 85 21 116/66 95 Mechanical Vent 04/24/23 01:00 37.3 C 85 22 96 04/24/23 01:00 120/67 04/24/23 00:30 37.3 C 87 23 94 04/24/23 00:06 84 21 99 04/24/23 00:00 37.3 C 86 20 99 04/24/23 00:00 119/64 04/24/23 00:00 04/24/23 00:00 84 127/57 L 04/24/23 00:00 87 04/23/23 23:32 Mechanical Vent 04/23/23 23:32 04/23/23 23:30 37.3 C 87 21 98 04/23/23 23:00 37.3 C 85 21 98 04/23/23 23:00 114/66 04/23/23 22:30 37.2 C 85 20 98 04/23/23 22:15 85 04/23/23 22:00 37.2 C 84 20 99 04/23/23 22:00 115/68 04/23/23 21:30 37.1 C 86 20 97 04/23/23 21:00 116/67 04/23/23 21:00 37.1 C 85 20 100 04/23/23 20:30 37.1 C 83 20 99 04/23/23 20:00 109/68 04/23/23 20:00 85 20 97 04/23/23 20:00 98 04/23/23 20:00 04/23/23 20:00 87 124/59 L 04/23/23 19:33 86 20 96 04/23/23 19:33 111/64 04/23/23 19:30 86 20 96 O2 Del Method FiO2 04/24/23 06:00 40 04/24/23 05:00 40 04/24/23 04:00 40 04/24/23 04:00 40 04/24/23 04:00 04/24/23 04:00 40 04/24/23 03:00 40 04/24/23 02:00 40 04/24/23 01:00 04/24/23 01:00 04/24/23 00:30 04/24/23 00:06 40 04/24/23 00:00 04/24/23 00:00 04/24/23 00:00 40 04/24/23 00:00 04/24/23 00:00 04/23/23 23:32 40 04/23/23 23:32 40 04/23/23 23:30 04/23/23 23:00 04/23/23 23:00 04/23/23 22:30 04/23/23 22:15 04/23/23 22:00 04/23/23 22:00 04/23/23 21:30 04/23/23 21:00 04/23/23 21:00 04/23/23 20:30 04/23/23 20:00 04/23/23 20:00 04/23/23 20:00 Mechanical Vent 04/23/23 20:00 40 04/23/23 20:00 04/23/23 19:33 04/23/23 19:33 04/23/23 19:30 Laboratory Results 04/24/23 04:32 04/24/23 04:32 Coding Level of Care Code 67421 CRITICAL CARE 1ST 30-74M Diagnoses Acute respiratory failure J96.00 Sepsis A41.9 Polysubstance abuse F19.10 Seizure disorder G40.909 Multifocal pneumonia J18.9 HTN (hypertension) I10 HLD (hyperlipidemia) E78.5 Aortic stenosis I35.0 Depression, unspecified depression type F32.9 Depression Type: unspecified AJIT (acute kidney injury) N17.9 Coronary artery disease I25.10 High anion gap metabolic acidosis E87.29 Time Spent (min) 38 (9) Depression Depression Type: unspecified Qualified Code(s): F32.9 - Major depressive disorder, single episode, unspecified
[2023-04-24 08:08] LABS: Reticulocyte % 1.8 % (0.5-2.0); Reticulocytes # 0.06 10^6/uL (0.02-0.10)
[2023-04-24] MEDS ORDERED: MULTI VIT W/MINERALS LIQUID 15 ML UDC PO SCH (09:00)
[2023-04-24] MEDS: CEFEPIME 2,000 MG in SYRINGE 0 ML IV SCH ×2 (10:21→22:57)
[2023-04-24] MEDS: PANTOprazole 40 MG in SYRINGE 0 ML IV SCH (10:21)
[2023-04-24] MEDS: levETIRAcetam 500 MG in SODIUM CHLOR 0.9% MINI-B 100 ML IV SCH (10:21)
[2023-04-24] MEDS: ATORVASTATIN 40 MG TAB PO SCH (11:29)
[2023-04-24] MEDS: TORSEMIDE 20 MG TAB PO SCH (11:29)
[2023-04-24] MEDS: ESCITALOPRAM OXALATE 20 MG TAB PO SCH (11:29)
[2023-04-24 12:23] LABS: Anti-dsDNA Recombinant <1 IU/mL
[2023-04-24 12:54] LABS: Hematocrit (blood only) 27.8 % (37.0-47.0); Hemoglobin 8.9 g/dl (12.0-16.0)
[2023-04-24] MEDS ORDERED: Nursing to Pharmacy Communication SCH (14:00)
--- NOTE | 2023-04-24 15:26 | Hospitalist Progress Note ---
Date of Service April 24, 2023 Assessment & Plan (1) Acute respiratory failure: Plan: Acute on chronic respiratory failure with hypoxia VDRF Multifactorial Suspected pneumonia Pulmonary hypertension Fluid overload Chronic oxygen dependency --CT Chest:Endotracheal and enteric tubes are in place. The heart is mildly enlarged and the coronary arteries are densely calcified. This is advanced for age. Diffuse intralobular septal thickening suggests fluid overload/congestive change. There is diffuse groundglass change seen throughout both lungs with more focal areas of patchy airspace consolidation. This could represent pulmonary edema, ARDS, and/or a nonspecific infectious/inflammatory pneumonitis. Clinical correlation will be essential. Follow-up to resolution is recommended. No pleural effusion is seen. Mediastinal lymphadenopathy is nonspecific and similar previous. Trace perihepatic ascites. --S/P extubation on 04/24/2023 --S/P bronchoscopy/bronchial lavage. Bronchial cultures pending --BioFire negative -- Procalcitonin 4.3 --Blood cultures negative to date --Sputum culture showed light normal fuad --Workup for mycoplasma, Legionella, autoimmune process pending --Appreciate varnish mixer help --Weaned off of pressors --Aggressive pulmonary hygiene --Empirically on azithromycin, cefepime --Wean off of supplemental oxygen as able (2) Septic shock: Plan: Management as above (3) Multifocal pneumonia: Plan: Management as above (4) Acute renal failure: Plan: High Anion gap Metabolic acidosis AJIT on CKD II-III--ATN likely Cr improved to 1.40 Monitor renal function Received IV fluids Avoid nephrotoxic agents as able (5) Demand ischemia: Plan: Troponin elevation likely demand ischemia secondary to septic shock (6) Chronic diastolic CHF (congestive heart failure): Plan: Chronic, low normal BNP. --ECHO: EF 60 to 70%. Mild concentric LVH. Evaluate trileaflet. Moderate focal calcification of the noncoronary aortic valve cusp. Moderate valvular aortic stenosis. Mild aortic regurgitation. Mild mitral and tricuspid regurgitation. Estimated systolic pulmonary pressure is 40 mmHg --Monitor volume status closely Resumed torsemide (7) Aortic stenosis: Plan: Echo as above Continue current medications (8) Depression: Plan: Continue escitalopram, Buspar, trazodone (9) Coronary artery disease: Plan: Continue Lipitor Resume aspirin, Plavix, metoprolol as able (10) Diabetes mellitus, type 2: Plan: HbA1c 5.3 Hold metformin Continue insulin while hospitalized Monitor BGs (11) Hypertension: Plan: Metoprolol, lisinopril held due to septic shock Monitor BP Resume home medications as able Pulmonary hypertension Type II with moderate aortic stenosis Has been on spironolactone, metoprolol succinate as well as torsemide at home Echo as above Resume home medications as able (12) Polysubstance abuse: Plan: currently on suboxone, Lexapro, gabapentin, buspar, flexeril and trazodone Toxicology screen not contributory Cautious we will resume his home medications Monitor for withdrawal (13) Anemia, iron deficiency: Plan: Chronic Resume iron supplements as able Monitor (14) Seizure disorder: Plan: Continue Keppra DVT Px: SCDs Heparin SQ held Code Status Full Code Admission and Anticipated Discharge Date Admission Date: April 22, 2023 Subjective Patient is seen and examined at bedside Extubated this morning Discussed with ICU team Patient complains of back pain, cough, dyspnea Denies any other complaints Saturating well on supplemental oxygen Review of Systems Review of Systems: All systems reviewed & are unremarkable except as noted in Subjective Physical Exam Physical Exam: Physical Exam: Vitals signs as noted above General Appearance:Moderately built and nourished, no apparent distress Head: normocephalic, Atraumatic Eyes: normal inspection, EOMI Neck: supple, Trachea midline Respiratory/Chest: Decreased breath sounds, basal crackles, No accessory muscle use Cardiovascular: S1, S2, + murmur Abdomen/GI:Soft, Non tender, Bowel sounds present Extremities/Musculoskeletal:normal inspection, Trace pedal edema Neurologic/Psych:AAOX3, grossly no focal neurological deficits Skin: normal color, warm Results & Data Results & Data Vital Signs (Past 12 Hours) Vital Signs Temp Pulse Resp BP Pulse Ox O2 Del Method O2 Flow Rate 04/24/23 13:18 Nasal Cannula 4 04/24/23 13:01 138/76 04/24/23 13:01 37.2 C 87 26 H 138/76 94 04/24/23 12:00 37.2 C 87 28 H 93 04/24/23 11:00 37.1 C 93 H 40 H 135/75 90 04/24/23 10:00 37.2 C 99 H 31 H 124/78 91 04/24/23 09:25 100 H 40 H 95 04/24/23 09:00 37.2 C 97 H 35 H 134/78 97 04/24/23 08:00 37.1 C 94 H 26 H 124/71 93 04/24/23 07:28 101 H 22 93 04/24/23 07:00 37.0 C 83 20 122/70 99 04/24/23 06:00 37.1 C 84 21 120/68 99 Mechanical Vent 04/24/23 05:00 37.0 C 87 22 123/68 98 Mechanical Vent 04/24/23 04:00 37.3 C 82 21 119/66 99 Mechanical Vent 04/24/23 04:00 04/24/23 04:00 90 127/55 L 04/24/23 04:00 86 22 98 FiO2 04/24/23 13:18 04/24/23 13:01 04/24/23 13:01 04/24/23 12:00 04/24/23 11:00 04/24/23 10:00 04/24/23 09:25 40 04/24/23 09:00 04/24/23 08:00 04/24/23 07:28 40 04/24/23 07:00 04/24/23 06:00 40 04/24/23 05:00 40 04/24/23 04:00 40 04/24/23 04:00 40 04/24/23 04:00 04/24/23 04:00 40 Laboratory Results Short CBC 04/24/23 04/24/23 Range/Units 04:32 12: WBC 12.48 H (4.8-10.8) K/ul Hgb 8.1 L 8.9 L (12.0-16.0) g/dl Hct 25.2 L 27.8 L (37.0-47.0) % Plt Count 254 (130-400) K/uL BMP 04/24/23 04:32 Sodium 139 Potassium 4.1 Chloride 110 H Carbon Dioxide 24 BUN 22 Creatinine 1.43 H Glucose 83 Calcium 8.4 L Liver Function 04/24/23 Range/Units 04:32 Total Bilirubin 0.4 (0.2-1.0) mg/dl AST 29 (13-39) U/L ALT 13 (7-52) U/L Alkaline Phosphatase 71 (34-104) U/L Albumin 2.9 L (3.4-5.0) gm/dl (8) Depression Depression Type: unspecified Qualified Code(s): F32.9 - Major depressive disorder, single episode, unspecified (10) Diabetes mellitus, type 2 Diabetes mellitus complication status: with unspecified complications Diabetes mellitus alf insulin use: without alf use Qualified Code(s): E11.8 - Type 2 diabetes mellitus with unspecified complications
[2023-04-24] MEDS: AZITHROMYCIN 500 MG in DEXTROSE 5% 250 ML IV SCH (16:25)
[2023-04-24] MEDS: GABAPENTIN 600 MG TAB PO SCH (19:58)
[2023-04-24] MEDS: LANTUS PER UNIT CHARGE SQ SCH (19:59)
[2023-04-24] MEDS: busPIRone 15 MG TAB PO SCH (19:59)
[2023-04-24] MEDS: traZODone HCL 100 MG TAB PO SCH (19:59)
[2023-04-24] MEDS: levETIRAcetam 500 MG TAB PO SCH (19:59)
[2023-04-24] MEDS: PANTOprazole 40 MG TAB PO SCH (19:59)
[2023-04-25 04:15] LABS: Hemoglobin 8.7 g/dl (12.0-16.0); Mean Corpuscular Hemoglobin 27.1 pg (25.0-34.0); Mean Corpuscular Hgb Conc 32.2 g/dL (32.0-36.0); Mean Corpuscular Volume 84.1 fL (80.0-100.0); Mean Platelet Volume 10.9 fL (9.4-12.4); Platelet Count 262 K/uL (130-400); RDW Coefficient of Variation 17.6 % (11.5-14.5); RDW Standard Deviation 53.9 fL (36.4-46.3); Red Blood Count 3.21 M/uL (4.20-5.40)
[2023-04-25 04:28] LABS: BUN Creatinine Ratio 13.3 (10-20); Calcium 8.5 mg/dl (8.6-10.3); Creatinine Clr Calc Pharmacy 62.3 ml/min; Est GFR (Non-African American) 58.6 ml/min; Magnesium 1.9 mg/dl (1.7-2.4); Potassium 3.6 mmol/L (3.5-5.1)
[2023-04-25] MEDS ORDERED: POTASSIUM CHLORIDE CRTAB 20 MEQ TABCR PO STA (07:27)
--- NOTE | 2023-04-25 07:31 | Critical Care Progress Note ---
Date of Service April 25, 2023 Assessment & Plan (1) Acute respiratory failure: (2) Sepsis: (3) Polysubstance abuse: (4) Seizure disorder: (5) Multifocal pneumonia: (6) HTN (hypertension): (7) HLD (hyperlipidemia): (8) Aortic stenosis: (9) Depression: (10) AJIT (acute kidney injury): (11) Coronary artery disease: (12) High anion gap metabolic acidosis: Plan Reason Critically Ill: 43-year-old female past medical history of polysubstance abuse on Suboxone, aortic stenosis moderate coronary artery disease presented to hospital with shortness of breath Neuro - [facility]: Unable to assess U tox was negative for everything except for ecstasy, ecstasy could be falsely positive in somebody was taking escitalopram. --History of depression On escitalopram along with trazodone at home Cardiac - --Elevated troponin Likely type II DE Continue trend EKG and troponin EKG 04/22/2023, 12:42 PM: Sinus tachycardia, normal axis, no ST-T wave changes appreciated -- Coronary artery disease On Plavix and aspirin along with atorvastatin at home --Pulmonary hypertension Type II with moderate aortic stenosis On spironolactone, metoprolol succinate 25 mg as well as torsemide at home Right heart cath 12/10/2022: Interestingly showed normal wedge of 9 as well as normal PA pressure RA 2 RV 28/6 PA. 23/10 (14) PAWP 9 LV 9 2D echo 04/23/2023: EF 65-70%, mild concentric LVH, moderate aortic stenosis, mild AR, mild TR, PASP 42 mmHg 2D echo 12/05/2022: EF greater than 70%, mild concentric LVH, mild to moderate pulmonary hypertension, PASP 50 mmHg, mild to moderate aortic stenosis, RV normal in size and function Respiratory - -- VDRF with acute hypoxic respiratory failure S/p extubation 04/24/2023 Respiratory bio fire negative for everything BNP 198 Nasal MRSA negative Follow-up urine Legionella S/p repeat bronc 04/23/2023, follow-up cultures Patient did have bronchoscopy on the previous admission which was 12/05/2022, neutrophilic and monocytic, bronc cultures were negative for everything, lavage cytology was negative except for chronic inflammatory cells Beta D glucan was negative at that time --Abnormal chest CT Underlying MULTIMEDIA MANAGER with his other autoimmune processes cannot be ruled out Follow-up autoimmune workup CT chest 04/23/2023 personally reviewed: Diffuse groundglass opacities appreciated bilaterally upper and lower lobes Mild mediastinal lymphadenopathy CAT scan of the chest seems to have improved compared to November 2022 although groundglass opacity still persist GI - --Mild elevation of AST Likely from type II DE Continue to trend RENAL/LYTES - --S/p HAGMA Delta-delta: Less than 1, gap plus nongap Gap is likely from metabolic acidosis, nongap could be from renal loss. UA negative for ketones Urinary gap Positive, likely the cause of non-anion gap acidosis Osmolar gap was negative Monitor -- AJIT on CKD --> improving Monitor BUN/creatinine Avoid nephrotoxic medications Strict ins and outs ENDO - --Diabetes type 2 ICU hypoglycemia protocol HEME - -- Normocytic anemia Monitor H&H Follow-up anemia workup ID - -- Leukocytosis Questionable pneumonia, UA clean Continue with Zosyn, vancomycin discontinued 04/23/2023 as nasal MRSA negative Pathology consult did not show any abnormalities related to immature granulocytes Follow-up culture and sputum culture --> negative to date ESR 36, CRP 19.8 Procalcitonin 4.33 --Prophylaxis VTE: Heparin GI: Pantoprazole Lines: Right IJ, left radial, positive [place] Diet: Start tube feeds Plan: In/out: -2.1 L, urine output 2635 Potassium and magnesium being replaced Resume subcu heparin Patient hemodynamically stable to be downgrade to medical floor. Complete the course of antibiotics for 5 days and then stop Continue with diuretics to keep the patient negative balance DC [place] as well as central line prior to downgrade Case was discussed with Dr. Shah Please note the above document was generated using voice recognition software. It may contain grammatical, syntax or spelling errors.Any formal questions or concerns about the content, text or information contained within the body of this dictation should be directly addressed to the provider for clarification. Admission and Anticipated Discharge Date Admission Date: April 22, 2023 Subjective Patient seen and examined at bedside. No acute distress, no adverse events overnight She was saturating 89-90% on 1 L nasal cannula Denies any chest pain, no headache, no nausea, no vomiting Fair appetite. Coughing, does complain of difficulty bringing up the phlegm Has been afebrile Review of Systems 2 Review of Systems: All systems reviewed & are unremarkable except as noted in Subjective Physical Exam 2 Physical Exam: Constitutional: No acute distress HEENT: PERRLA left eye, right eye pupil deformed, EOMI Respiratory system: Decreased air entry bilaterally, no wheeze, no rhonchi, positive crackles bilateral lower lobes CVS: S1-S2 positive, positive 3 out of 6 systolic murmur appreciated best at aorta Abdomen: Soft, nontender, nondistended, positive bowel sounds x4 Extremities: +2 pulses bilaterally radialis/ dorsalis pedis, no cyanosis, minimal pitting edema bilateral lower extremity Neuro: Awake alert oriented x 3 Psych: Normal mood and affect G/U: Positive [place] Skin: no rashes, warm and dry Lymphatic: no cervical or axillary lymphadenopathy Results & Data Results & Data Vital Signs (Past 12 Hours) Vital Signs Temp Pulse Resp BP Pulse Ox Pulse Ox O2 Del Method 04/25/23 05:00 126/75 04/25/23 05:00 36.9 C 80 28 H 95 04/25/23 04:00 122/65 04/25/23 04:00 36.8 C 77 27 H 96 04/25/23 03:00 127/67 04/25/23 03:00 36.7 C 72 30 H 94 04/25/23 02:30 36.7 C 81 33 H 130/73 95 04/25/23 01:30 36.9 C 74 31 H 97 04/25/23 01:00 36.9 C 73 32 H 136/72 95 04/25/23 00:00 37.0 C 77 33 H 97 04/25/23 00:00 127/65 04/25/23 00:00 76 04/24/23 23:00 37.0 C 93 H 35 H 89 L 04/24/23 23:00 118/70 04/24/23 22:00 37.1 C 77 30 H 97 04/24/23 22:00 135/69 04/24/23 22:00 97 04/24/23 21:00 129/73 04/24/23 21:00 37.1 C 69 29 H 97 04/24/23 20:00 37.3 C 78 31 H 95 04/24/23 20:00 158/79 H 04/24/23 20:00 Nasal Cannula 04/24/23 19:40 133/75 04/24/23 19:40 37.2 C 80 32 H 92 O2 Del Method O2 Flow Rate O2 Flow Rate 04/25/23 05:00 04/25/23 05:00 04/25/23 04:00 04/25/23 04:00 04/25/23 03:00 04/25/23 03:00 04/25/23 02:30 04/25/23 01:30 04/25/23 01:00 3 04/25/23 00:00 4 04/25/23 00:00 04/25/23 00:00 04/24/23 23:00 6 04/24/23 23:00 04/24/23 22:00 3 04/24/23 22:00 04/24/23 22:00 Nasal Cannula 3 04/24/23 21:00 04/24/23 21:00 4 04/24/23 20:00 4 04/24/23 20:00 04/24/23 20:00 4 04/24/23 19:40 04/24/23 19:40 Laboratory Results 04/25/23 03:39 04/25/23 03:39 Coding Level of Care Code 76512 SUB INP/OBS CARE 3/50MIN Diagnoses Acute respiratory failure J96.00 Sepsis A41.9 Polysubstance abuse F19.10 Seizure disorder G40.909 Multifocal pneumonia J18.9 HTN (hypertension) I10 HLD (hyperlipidemia) E78.5 Aortic stenosis I35.0 Depression, unspecified depression type F32.9 Depression Type: unspecified AJIT (acute kidney injury) N17.9 Coronary artery disease I25.10 High anion gap metabolic acidosis E87.29 (9) Depression Depression Type: unspecified Qualified Code(s): F32.9 - Major depressive disorder, single episode, unspecified
[2023-04-25 07:58] LABS: Phosphorus 3.6 mg/dl (2.5-4.9)
[2023-04-25] MEDS: GABAPENTIN 600 MG TAB PO SCH ×2 (08:00→20:10)
[2023-04-25] MEDS: busPIRone 15 MG TAB PO SCH ×2 (08:01→20:10)
[2023-04-25] MEDS: levETIRAcetam 500 MG TAB PO SCH ×2 (08:01→20:09)
[2023-04-25] MEDS: ATORVASTATIN 40 MG TAB PO SCH (08:01)
[2023-04-25] MEDS: PANTOprazole 40 MG TAB PO SCH ×2 (08:01→20:10)
[2023-04-25] MEDS: ESCITALOPRAM OXALATE 20 MG TAB PO SCH (08:01)
[2023-04-25] MEDS: TORSEMIDE 20 MG TAB PO SCH (08:01)
[2023-04-25] MEDS: CEROVITE ADV FORMULA TAB PO SCH (08:01)
[2023-04-25] MEDS: MAGNESIUM SULFATE / D5W 1 GM/100 ML BAG IV SCH ×2 (08:05→10:20)
[2023-04-25] MEDS: INSULIN ASPART PER UNIT CHARGE SC SCH ×5 (08:09→20:07)
[2023-04-25] MEDS: BUPRENORPHINE/NALOXONE 8/2 MG TAB SL SCH (08:12)
[2023-04-25] MEDS: FLUTICASONE/VILANTEROL 100/25MCG 14 PUFFS/INHALER INH SCH (08:21)
--- NOTE | 2023-04-25 09:39 | XRay Report ---
XR chest 1V portable CLINICAL HISTORY: f/u COMPARISON STUDY: Chest radiograph and chest CT April 23, 2023. FINDINGS: The endotracheal and nasogastric tubes have been removed. Right internal jugular central li ne remains in place. There is no pneumothorax or pleural effusion. Diffuse interstitial thickening an d bilateral airspace opacities persist. Cardiomegaly is again noted. IMPRESSION: Diffuse interstitial thickening and bilateral airspace opacities, similar to prior chest radiograph and chest CT. These remain nonspecific. Primary considerations include pulmonary edema or an infectious etiology. ACT 112: Negative or not required by law. Electronically signed by: Kush Rueda M.D. 04/25/2023 9:38 AM
[2023-04-25] MEDS: guaiFENesin 600 MG TABCR PO SCH ×2 (10:42→20:09)
[2023-04-25] MEDS: CEFEPIME 2,000 MG in SYRINGE 0 ML IV SCH ×2 (11:24→17:28)
[2023-04-25] MEDS: HEPARIN SOD 5,000 UNIT/0.5 ML VIAL SQ SCH ×2 (12:11→20:12)
[2023-04-25 14:12] LABS: Uric Acid, Random Urine 12 mg/dL
[2023-04-25] MEDS: AZITHROMYCIN 500 MG in DEXTROSE 5% 250 ML IV SCH (15:19)
--- NOTE | 2023-04-25 17:06 | Hospitalist Progress Note ---
Date of Service April 25, 2023 Assessment & Plan (1) Acute respiratory failure: Plan: Acute on chronic respiratory failure with hypoxia VDRF Multifactorial Suspected pneumonia Pulmonary hypertension Fluid overload Chronic oxygen dependency --CT Chest:Endotracheal and enteric tubes are in place. The heart is mildly enlarged and the coronary arteries are densely calcified. This is advanced for age. Diffuse intralobular septal thickening suggests fluid overload/congestive change. There is diffuse groundglass change seen throughout both lungs with more focal areas of patchy airspace consolidation. This could represent pulmonary edema, ARDS, and/or a nonspecific infectious/inflammatory pneumonitis. Clinical correlation will be essential. Follow-up to resolution is recommended. No pleural effusion is seen. Mediastinal lymphadenopathy is nonspecific and similar previous. Trace perihepatic ascites. --S/P extubation on 04/24/2023 --S/P bronchoscopy/bronchial lavage. Bronchial cultures pending --BioFire negative -- Procalcitonin 4.3 --Blood cultures negative to date --Sputum culture showed light normal fuad --Workup for mycoplasma, Legionella, autoimmune process pending --Appreciate senior communications specialist help --Weaned off of pressors --Aggressive pulmonary hygiene --Empirically on azithromycin, cefepime --Wean off of supplemental oxygen as able Plan to discontinue antibiotics after 5-day course Leukocytosis trending down Chest x-ray today no significant change Transfer out of ICU today (2) Septic shock: Plan: Management as above (3) Multifocal pneumonia: Plan: Management as above (4) Acute renal failure: Plan: High Anion gap Metabolic acidosis 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 --ECHO: EF 60 to 70%. Mild concentric LVH. Evaluate trileaflet. Moderate focal calcification of the noncoronary aortic valve cusp. Moderate valvular aortic stenosis. Mild aortic regurgitation. Mild mitral and tricuspid regurgitation. Estimated systolic pulmonary pressure is 40 mmHg --Monitor volume status closely Resumed torsemide (7) Aortic stenosis: Plan: Echo as above Continue current medications (8) Depression: Plan: Continue escitalopram, Buspar, trazodone (9) Coronary artery disease: Plan: Continue Lipitor, aspirin, Plavix, metoprolol (10) Diabetes mellitus, type 2: Plan: HbA1c 5.3 Hold metformin Continue insulin while hospitalized Monitor BGs (11) Hypertension: Plan: Lisinopril held due to septic shock Monitor BP Resume home medications as able Pulmonary hypertension Type II with moderate aortic stenosis Has been on spironolactone, metoprolol succinate as well as torsemide at home Echo as above Continue current meds (12) Polysubstance abuse: Plan: currently on suboxone, Lexapro, gabapentin, buspar, flexeril and trazodone Toxicology screen not contributory Continue home medications Will adjust gabapentin dose based on renal function (13) Anemia, iron deficiency: Plan: Chronic Resume iron supplements as able Monitor (14) Seizure disorder: Plan: Continue Keppra DVT Px: SCDs Heparin SQ Code Status Full Code Admission and Anticipated Discharge Date Admission Date: April 22, 2023 Subjective Patient is seen and examined at bedside Reports cough with brownish expectoration Also states having back pain Discussed with pulmonology today Saturating well on 2 L supplemental oxygen Eager to get discharged Denies any chest pain, significant dyspnea, nausea, vomiting, abdominal pain Review of Systems Review of Systems: All systems reviewed & are unremarkable except as noted in Subjective Physical Exam Physical Exam: Physical Exam: Vitals signs as noted above General Appearance:Moderately built and nourished, no apparent distress Head: normocephalic, Atraumatic Eyes: normal inspection, EOMI Neck: supple, Trachea midline Respiratory/Chest: Decreased breath sounds, basal crackles, No accessory muscle use Cardiovascular: S1, S2, + murmur Abdomen/GI:Soft, Non tender, Bowel sounds present Extremities/Musculoskeletal:normal inspection, Trace pedal edema Neurologic/Psych:AAOX3, grossly no focal neurological deficits Skin: normal color, warm Results & Data Results & Data Vital Signs (Past 12 Hours) Vital Signs Temp Pulse Pulse Resp BP BP Pulse Ox 04/25/23 15:20 36.5 C 80 19 114/74 98 04/25/23 13:09 04/25/23 12:53 04/25/23 12:53 36.8 C 91 H 18 123/73 96 04/25/23 12:00 37.1 C 90 27 H 96 04/25/23 12:00 113/70 04/25/23 11:00 107/69 04/25/23 11:00 37.0 C 97 H 17 95 04/25/23 10:00 121/78 04/25/23 10:00 37.0 C 85 20 96 04/25/23 09:00 37.1 C 85 28 H 91 04/25/23 09:00 129/77 04/25/23 08:00 139/68 04/25/23 08:00 36.9 C 80 32 H 91 04/25/23 07:00 139/73 04/25/23 07:00 37.0 C 83 27 H 94 04/25/23 06:45 37.0 C 80 30 H 94 04/25/23 05:00 126/75 04/25/23 05:00 36.9 C 80 28 H 95 O2 Del Method O2 Flow Rate 04/25/23 15:20 Nasal Cannula 2 04/25/23 13:09 Nasal Cannula 2 04/25/23 12:53 Nasal Cannula 2 04/25/23 12:53 Room Air, Nasal Cannula 2 04/25/23 12:00 Nasal Cannula 2 04/25/23 12:00 04/25/23 11:00 04/25/23 11:00 04/25/23 10:00 04/25/23 10:00 04/25/23 09:00 04/25/23 09:00 04/25/23 08:00 04/25/23 08:00 Nasal Cannula 2 04/25/23 07:00 04/25/23 07:00 04/25/23 06:45 04/25/23 05:00 04/25/23 05:00 Laboratory Results Short CBC 04/25/23 Range/Units 03:39 WBC 10.90 H (4.8-10.8) K/ul Hgb 8.7 L (12.0-16.0) g/dl Hct 27.0 L (37.0-47.0) % Plt Count 262 (130-400) K/uL BMP 04/25/23 03:39 Sodium 143 Potassium 3.6 Chloride 110 H Carbon Dioxide 26 BUN 15 Creatinine 1.13 D Glucose 73 Calcium 8.5 L (8) Depression Depression Type: unspecified Qualified Code(s): F32.9 - Major depressive disorder, single episode, unspecified (10) Diabetes mellitus, type 2 Diabetes mellitus complication status: with unspecified complications Diabetes mellitus salvage determiner insulin use: without residential use Qualified Code(s): E11.8 - Type 2 diabetes mellitus with unspecified complications
[2023-04-25] MEDS: LANTUS PER UNIT CHARGE SQ SCH (20:07)
[2023-04-25] MEDS: traZODone HCL 100 MG TAB PO SCH (20:10)
[2023-04-26 02:07] LABS: Pneumocystis jirovecii PCRQual NOT DETECTED; Pneumocystis jirovecii Source BRONCH LAV
[2023-04-26] MEDS: CEFEPIME 2,000 MG in SYRINGE 0 ML IV SCH ×2 (02:18→10:15)
[2023-04-26] MEDS: INSULIN ASPART PER UNIT CHARGE SC SCH ×2 (08:26→12:06)
[2023-04-26] MEDS: GABAPENTIN 600 MG TAB PO SCH (08:29)
[2023-04-26] MEDS: guaiFENesin 600 MG TABCR PO SCH (08:30)
[2023-04-26] MEDS: levETIRAcetam 500 MG TAB PO SCH (08:30)
[2023-04-26] MEDS: busPIRone 15 MG TAB PO SCH (08:30)
[2023-04-26] MEDS: TORSEMIDE 20 MG TAB PO SCH (08:30)
[2023-04-26] MEDS: PANTOprazole 40 MG TAB PO SCH (08:30)
[2023-04-26] MEDS: ATORVASTATIN 40 MG TAB PO SCH (08:31)
[2023-04-26] MEDS: CEROVITE ADV FORMULA TAB PO SCH (08:31)
[2023-04-26] MEDS: HEPARIN SOD 5,000 UNIT/0.5 ML VIAL SQ SCH (08:32)
[2023-04-26] MEDS: FLUTICASONE/VILANTEROL 100/25MCG 14 PUFFS/INHALER INH SCH (08:32)
[2023-04-26] MEDS: BUPRENORPHINE/NALOXONE 8/2 MG TAB SL SCH (08:35)
[2023-04-26] MEDS: ESCITALOPRAM OXALATE 20 MG TAB PO SCH (08:44)
[2023-04-26] MEDS ORDERED: METOPROLOL SUCC 25MG EXT REL TAB PO SCH (09:00)
[2023-04-26] MEDS ORDERED: CLOPIDOGREL BISULFATE 75 MG TAB PO SCH (09:00)
[2023-04-26] MEDS ORDERED: ASPIRIN 81 MG ECTAB PO SCH (09:00)
[2023-04-26 10:08] LABS: HBSAG NON-REACTIVE (NON-REACTIVE); Hepatitis A Antibody IgM NON-REACTIVE (NON-REACTIVE); Hepatitis B Core Antibody IgM NON-REACTIVE (NON-REACTIVE)
[2023-04-26 11:26] LABS: Hematocrit (blood only) 32.8 % (37.0-47.0); Hemoglobin 10.4 g/dl (12.0-16.0); Mean Corpuscular Hemoglobin 26.7 pg (25.0-34.0); Mean Corpuscular Hgb Conc 31.7 g/dL (32.0-36.0); Mean Corpuscular Volume 84.1 fL (80.0-100.0); Mean Platelet Volume 10.4 fL (9.4-12.4); Platelet Count 333 K/uL (130-400); RDW Coefficient of Variation 17.6 % (11.5-14.5); RDW Standard Deviation 54.5 fL (36.4-46.3); White Blood Count 13.33 K/ul (4.8-10.8)
[2023-04-26 11:43] LABS: BUN Creatinine Ratio 11.8 (10-20); Calcium 8.9 mg/dl (8.6-10.3); Creatinine Clr Calc Pharmacy 44.5 ml/min; Est GFR (African American) 47.5 ml/min; Magnesium 1.8 mg/dl (1.7-2.4); Potassium 4.2 mmol/L (3.5-5.1)
[2023-04-26 11:44] LABS: Hepatitis C Vira RNA (Log) PCR 2.65 Log IU/mL (NOT DETECTED); Hepatitis C Viral RNA by PCR 445 IU/mL (NOT DETECTED)
--- NOTE | 2023-04-26 14:30 | Hospitalist Progress Note ---
Date of Service April 26, 2023 Assessment & Plan (1) Acute respiratory failure: Plan: Acute on chronic respiratory failure with hypoxia VDRF Multifactorial Suspected pneumonia Pulmonary hypertension Fluid overload Chronic oxygen dependency --CT Chest:Endotracheal and enteric tubes are in place. The heart is mildly enlarged and the coronary arteries are densely calcified. This is advanced for age. Diffuse intralobular septal thickening suggests fluid overload/congestive change. There is diffuse groundglass change seen throughout both lungs with more focal areas of patchy airspace consolidation. This could represent pulmonary edema, ARDS, and/or a nonspecific infectious/inflammatory pneumonitis. Clinical correlation will be essential. Follow-up to resolution is recommended. No pleural effusion is seen. Mediastinal lymphadenopathy is nonspecific and similar previous. Trace perihepatic ascites. --S/P extubation on 04/24/2023 --S/P bronchoscopy/bronchial lavage. Bronchial cultures pending --BioFire negative -- Procalcitonin 4.3 --Blood cultures negative to date --Sputum culture showed light normal fuad --Workup for mycoplasma, Legionella, autoimmune process pending --Appreciate security assurance specialist help --Weaned off of pressors --Aggressive pulmonary hygiene --Empirically on azithromycin, cefepime --Wean off of supplemental oxygen as able Plan to discontinue antibiotics after 5-day course Leukocytosis trending down Chest x-ray today no significant change Transferred out of ICU on 04/25/23 2 step: Needed 2 L of supplemental oxygen with activity Despite explaining the risks and complications, patient preferred to sign out AGAINST MEDICAL ADVICE. Advised to follow-up with her primary care physician on discharge. Also advised to complete the antibiotic course as prescribed. Supplemental oxygen was arranged. 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 --ECHO: EF 60 to 70%. Mild concentric LVH. Evaluate trileaflet. Moderate focal calcification of the noncoronary aortic valve cusp. Moderate valvular aortic stenosis. Mild aortic regurgitation. Mild mitral and tricuspid regurgitation. Estimated systolic pulmonary pressure is 40 mmHg --Monitor volume status closely Resumed torsemide (7) Aortic stenosis: Plan: Echo as above Continue current medications (8) Depression: Plan: Continue escitalopram, Buspar, trazodone (9) Coronary artery disease: Plan: Continue Lipitor, aspirin, Plavix, metoprolol (10) Diabetes mellitus, type 2: Plan: HbA1c 5.3 Hold metformin Continue insulin while hospitalized Monitor BGs (11) Hypertension: Plan: Lisinopril held due to septic shock Monitor BP Resume home medications as able Pulmonary hypertension Type II with moderate aortic stenosis Has been on spironolactone, metoprolol succinate as well as torsemide at home Echo as above Continue current meds (12) Polysubstance abuse: Plan: currently on suboxone, Lexapro, gabapentin, buspar, flexeril and trazodone Toxicology screen not contributory Continue home medications Will adjust gabapentin dose based on renal function (13) Anemia, iron deficiency: Plan: Chronic Resume iron supplements as able Monitor (14) Seizure disorder: Plan: Continue Keppra DVT Px: SCDs Heparin SQ Code Status Full Code Disposition Left AGAINST MEDICAL ADVICE Admission and Anticipated Discharge Date Admission Date: April 22, 2023 Subjective Patient is seen and examined at bedside Reports chronic back pain Cough better today Tachycardic with minimal ambulation Had 2 step earlier today Eager to get discharged Denies any chest pain, significant dyspnea, nausea, vomiting, abdominal pain Review of Systems Review of Systems: All systems reviewed & are unremarkable except as noted in Subjective Physical Exam Physical Exam: Physical Exam: Vitals signs as noted above General Appearance:Moderately built and nourished, no apparent distress Head: normocephalic, Atraumatic Eyes: normal inspection, EOMI Neck: supple, Trachea midline Respiratory/Chest: Decreased breath sounds, basal crackles, No accessory muscle use Cardiovascular: S1, S2, + murmur Abdomen/GI:Soft, Non tender, Bowel sounds present Extremities/Musculoskeletal:normal inspection, Trace pedal edema Neurologic/Psych:AAOX3, grossly no focal neurological deficits Skin: normal color, warm Results & Data Results & Data Vital Signs (Past 12 Hours) Vital Signs Temp Pulse Pulse Pulse Pulse Pulse Pulse 04/26/23 14:02 37.0 C 111 H 04/26/23 11:48 121 H 124 H 120 H 95 H 04/26/23 11:04 37.0 C 111 H 04/26/23 08:00 04/26/23 07:30 36.8 C 87 04/26/23 07:00 85 04/26/23 03:08 36.5 C 71 Resp Resp Resp Resp Resp BP BP 04/26/23 14:02 20 138/68 116/72 04/26/23 11:48 18 18 18 16 04/26/23 11:04 20 116/72 04/26/23 08:00 04/26/23 07:30 20 118/69 04/26/23 07:00 04/26/23 03:08 18 126/76 Pulse Ox Pulse Ox Pulse Ox Pulse Ox Pulse Ox O2 Del Method O2 Flow Rate 04/26/23 14:02 91 04/26/23 11:48 85 L 93 85 L 94 04/26/23 11:04 91 Room Air 04/26/23 08:00 Nasal Cannula 2 04/26/23 07:30 99 Nasal Cannula 2 04/26/23 07:00 04/26/23 03:08 96 Nasal Cannula 2 O2 Flow Rate O2 Flow Rate 04/26/23 14:02 04/26/23 11:48 1 2 04/26/23 11:04 04/26/23 08:00 04/26/23 07:30 04/26/23 07:00 04/26/23 03:08 Laboratory Results Short CBC 04/26/23 Range/Units 11:01 WBC 13.33 H (4.8-10.8) K/ul Hgb 10.4 L (12.0-16.0) g/dl Hct 32.8 L (37.0-47.0) % Plt Count 333 (130-400) K/uL BMP 04/26/23 11:01 Sodium 140 Potassium 4.2 Chloride 109 H Carbon Dioxide 23 BUN 18 Creatinine 1.52 H D Glucose 101 H Calcium 8.9 (8) Depression Depression Type: unspecified Qualified Code(s): F32.9 - Major depressive disorder, single episode, unspecified (10) Diabetes mellitus, type 2 Diabetes mellitus complication status: with unspecified complications Diabetes mellitus nursing home insulin use: without extermination supervisor use Qualified Code(s): E11.8 - Type 2 diabetes mellitus with unspecified complications
--- NOTE | 2023-04-26 15:32 | Discharge Summary ---
Date of Service April 26, 2023 Admission HPI Per Admitting Provider 43 yo F presented with acute shortness of breath. Hypoxic to 20% on room air per ER staff and was A&O x 3. Unable to assess history prior to intubation, however. Recent hospitalization in November with a similar presentation requiring intubation and pressor support temporarily. Respiratory failure at that time thought most likely 2/2 pulmonary edema. She did undergo a cardiac cath on 12/10/22 and nonobstructive disease with patent prior stents was seen. Since discharge from the hospital in November 2022, she was seen by [facility] on 12/17. The torsemide that was stopped was restarted at a lower dose of 20mg PO daily (she was prev on 20mg BID). She was continued on GDMT including lisinopril 5mg daily, metop succ 25mg daily, spironolactone 12.5mg daily. She was also continued on DAPT with ASA/Plavix 75 and atorvastatin 80mg daily. Regarding her CAD, there was a note per Dr. Hay-Medical management recommended of chronic mid LAD bifurcation lesion with consideration of PCI to the LAD should refractory angina occur. She has known and repeat echo was recommended in one year (performed during Nov 2022 admission). She did not see pulmonology. She came back to her PCP on 04/10/23 with rpeorts of increased sciatica pain causing difficulty walking and nausea wtih poor appetite. Breathing was reportedly "ok" at that time. Per ER physician she arrived today and was able to answer some questions, however, heart rate was in the 130s in sinus rhythm, blood pressure was in the 70s systolic and she was oxygenating poorly. She was placed on oxygen supplemen tation and quickly switched to BiPAP. Chest x-ray revealed bilateral fluffy infiltrates suggestive of possible pneumonia. Creatinine was elevated to 2.4 and [id number] VBG revealed a pH of 7.15. She was still tachypneic with respiratory rate in the 40s despite ongoing BiPAP and was becoming hypotensive. Saline bolus was ordered however there was a concern with overload with loading her given her history of aortic stenosis. She was started on Levophed, intubated and admitted to the ICU. White blood cell count was 34 K with evidence of anemia. Sodium was 130, potassium 5.6, bicarb 16, BUN 34, creatinine 1.93 lactate was 10.5. CRP was 19.9, troponin was elevated at 115, procalcitonin was elevated. Her clinical picture was consistent with a bacterial pneumonia. I attempted to contact her by phone today but was unable to connect successfully. The patient was continued on broad-spectrum antibiotics. Admission Exam Per Admitting Provider CONSTITUTIONAL: WNWD, intubated and sedated EYES: anisocoria with right pupil larger than left and both reactive to light. Normal conjunctivae, no scleral icterus ENT: external ear and nose normal, MMM NECK: trachea midline RESPIRATORY: coarse rhonchi throughout. No rales or wheezes, normal respiratory effort, intubated. CARDIOVASCULAR: regular rate and rhythm, S1 and 2 heard without murmurs, gallops or rubs, no JVD, no peripheral edema CHEST: inspection of chest was normal GASTROINTESTINAL: soft, nontender, ND, no guarding MUSCULOSKELETAL: sedated, cannot assess SKIN: warm and dry NEUROLOGIC: could not elicit patellar DTRs, sedated, cannot assess further. PSYCHIATRIC: sedated, cannot assess. Principal Diagnosis Acute on chronic respiratory failure with hypoxia Ventilator dependent respiratory failure Septic shock Multifocal pneumonia Pulmonary hypertension Volume overload AJIT on CKD Pulmonary hypertension Discharge Data Allergies Allergy/AdvReac Type Severity Reaction Status Date / Time lidocaine Allergy Intermediate HIVES Verified 07/10/21 21:33 procaine Allergy Intermediate HIVES Verified 07/10/21 21:33 Penicillins Allergy Mild HAD NO Verified 07/10/21 21:33 PROBLEM WITH ZOSYN strawberry Allergy Mild HIVES Verified 07/10/21 21:33 mushroom Allergy Unknown Unknown Verified 12/11/22 15:32 onion Allergy Verified 04/25/23 10:00 COVID-19 (SARS-CoV-2) AdvReac Severe stopped Verified 12/05/22 20:06 vaccine, zoraida breathing next day cephalexin AdvReac Intermediate YEAST Verified 07/10/21 21:33 INFECTIONS tramadol AdvReac Intermediate SEIZURES Verified 07/10/21 21:33 azithromycin AdvReac Mild STOMACH Verified 07/10/21 21:33 PAIN Consultations 04/22/23 12:12 ED Decision to Admit Stat 04/22/23 14:15 Consult Wood Room Hand Routine Procedures Performed Laboratory Results WBC 13.33 K/ul (4.8-10.8) H 04/26/23 11:01 RBC 3.90 M/uL (4.20-5.40) L 04/26/23 11:01 Hgb 10.4 g/dl (12.0-16.0) L 04/26/23 11:01 POC Hgb 9.2 g/dl (12.0-16.0) L 04/23/23 05:11 Hct 32.8 % (37.0-47.0) L 04/26/23 11:01 POC Hct 27 % (37-47) L 04/23/23 05:11 MCV 84.1 fL (80.0-100.0) 04/26/23 11:01 MCH 26.7 pg (25.0-34.0) 04/26/23 11:01 MCHC 31.7 g/dL (32.0-36.0) L 04/26/23 11:01 RDW Std Deviation 54.5 fL (36.4-46.3) H 04/26/23 11:01 RDW Coeff of Hannah 17.6 % (11.5-14.5) H 04/26/23 11:01 Plt Count 333 K/uL (130-400) 04/26/23 11:01 MPV 10.4 fL (9.4-12.4) 04/26/23 11:01 Immature Gran % (Auto) 0.5 % 04/24/23 04:32 Neut % (Auto) 69.5 % 04/24/23 04:32 Lymph % (Auto) 18.2 % 04/24/23 04:32 Stephenson % (Auto) 4.8 % 04/24/23 04:32 Eos % (Auto) 6.5 % 04/24/23 04:32 Baso % (Auto) 0.5 % 04/24/23 04:32 Reticulocyte % (Auto) 1.8 % (0.5-2.0) 04/24/23 07:45 Neut # (Auto) 8.68 K/uL (1.40-6.50) H 04/24/23 04:32 Lymph # (Auto) 2.27 K/uL (1.20-3.40) 04/24/23 04:32 Stephenson # (Auto) 0.60 K/uL (0.11-0.59) H 04/24/23 04:32 Eos # (Auto) 0.81 K/uL (0.00-0.50) H 04/24/23 04:32 Baso # (Auto) 0.06 K/uL (0.00-0.20) 04/24/23 04:32 Reticulocyte # 0.06 10^6/uL (0.02-0.10) 04/24/23 07:45 Immature Gran # (Auto) 0.06 K/uL (0.01-0.20) 04/24/23 04:32 Polychromasia 1+ 04/22/23 11:38 Echinocytes 2+ 04/22/23 11:38 Acanthocytes (Spur) 1+ 04/22/23 11:38 Peripher Smr Path Cons 04/23/23 10:14 ESR 36 mm/hr (0-20) H 04/22/23 11:38 PT 13.0 Seconds (9.0-12.0) H 04/22/23 11:38 INR 1.2 (0.9-1.1) H 04/22/23 11:38 APTT 29 Seconds (21-31) 04/22/23 11:38 PTT Ratio 1.0 04/22/23 11:38 Sample Site Art Line 04/22/23 14:50 POC pH 7.40 (7.35-7.45) 04/23/23 05:11 POC pCO2 36 mmHg (35-46) 04/23/23 05:11 POC pO2 108 mmHg (80-95) H 04/23/23 05:11 POC HCO3 22 quinn/L (19-24) 04/23/23 05:11 POC Total CO2 23 mmol/L (24-31) L 04/23/23 05:11 POC Base Excess -2.0 quinn/L (-9-1.8) 04/23/23 05:11 ABG pH (Temp Correct) 7.172 (7.35-7.45) L* 04/22/23 14:50 ABG pCO2 (Temp Corrct 47 mmHg (35-46) H 04/22/23 14:50 POC ABG pO2 at Pt Temp 93 04/22/23 14:50 POC ABG O2 Sat 98.0 % (90-95) H 04/23/23 05:11 Caesar Test NA 04/22/23 14:50 O2 Delivery Device Ventilator 04/22/23 14:50 POC O2 Rate 26 04/22/23 14:50 Minute Ventilation 10.9 04/22/23 14:50 POC FiO2 50 % 04/22/23 14:50 Tidal Volume 380 04/22/23 14:50 PEEP 10 04/22/23 14:50 POC Sodium 137 mmol/L (135-144) 04/23/23 05:11 Sodium 140 mmol/L (136-145) 04/26/23 11:01 POC Potassium 4.3 mmol/L (3.3-5.0) 04/23/23 05:11 Potassium 4.2 mmol/L (3.5-5.1) 04/26/23 11:01 POC Chloride 104 mmol/L (101-112) 04/22/23 11:27 Chloride 109 mmol/L (98-107) H 04/26/23 11:01 Carbon Dioxide 23 mmol/L (21-32) 04/26/23 11:01 POC Total CO2 14 mmol/L (24-31) L 04/22/23 11:27 Anion Gap 8 (3-11) 04/26/23 11:01 POC Anion Gap 19.0 mmol/L (16-25) 04/22/23 11:27 POC BUN 34 mg/dl (7-18) H 04/22/23 11:27 BUN 18 mg/dl (6-23) 04/26/23 11:01 Creatinine 1.52 mg/dl (0.6-1.2) H D 04/26/23 11:01 POC Creatinine 2.4 mg/dl (0.6-1.3) H 04/22/23 11:27 Est Cr Clr Drug Dosing 44.5 ml/min 04/26/23 11:01 Est GFR ( Amer) 47.5 ml/min 04/26/23 11:01 Est GFR (Non-Af Amer) 41.0 ml/min 04/26/23 11:01 BUN/Creatinine Ratio 11.8 (10-20) 04/26/23 11:01 Glucose 101 mg/dl (70-99(Fasting)) H 04/26/23 11:01 POC Glucose 113 mg/dl (70-99) H 04/26/23 11:09 POC Glucose (other) 122 mg/dl (70-99) H 04/22/23 11:27 Estimat Average Glucose 105 mg/dl 04/23/23 05:55 Hemoglobin A1c 5.3 % (4.5-5.6) 04/23/23 05:55 Osmolality 287 mOsm/kg (280-300) 04/22/23 20:06 Lactate 1.7 mmol/L (0.4-2.0) 04/22/23 20:06 Calcium 8.9 mg/dl (8.6-10.3) 04/26/23 11:01 POC Ioniz Calcium Chuy 1.03 mmol/l (1.12-1.32) L 04/22/23 11:27 Phosphorus 3.6 mg/dl (2.5-4.9) 04/25/23 03:39 Magnesium 1.8 mg/dl (1.7-2.4) 04/26/23 11:01 Iron 14 mcg/dl (35-150) L 04/24/23 07:45 Transferrin 194 mg/dl (200-360) L 04/24/23 07:45 Ferritin 113.0 ng/ml (8-388) 04/24/23 07:45 Total Bilirubin 0.4 mg/dl (0.2-1.0) 04/24/23 04:32 Direct Bilirubin 0.2 mg/dl (0-0.2) 04/22/23 11:38 AST 29 U/L (13-39) 04/24/23 04:32 ALT 13 U/L (7-52) 04/24/23 04:32 Alkaline Phosphatase 71 U/L (34-104) 04/24/23 04:32 Total Creatine Kinase 131 U/L (26-192) 04/23/23 05:55 Troponin I High Sens 148.6 pg/ml (0-14) H* D 04/22/23 14:06 C-Reactive Protein 19.89 mg/dl (0-0.5) H 04/22/23 11:38 C-Reactive Protein Cancelled 04/22/23 11:38 B-Natriuretic Peptide 198 pg/ml (0-100) H 04/22/23 11:50 Total Protein 5.5 gm/dl (6.0-8.3) L 04/24/23 04:32 Albumin 2.9 gm/dl (3.4-5.0) L 04/24/23 04:32 Globulin 2.6 gm/dl (2.5-4.0) 04/24/23 04:32 Albumin/Globulin Ratio 1.1 (0.9-2) 04/24/23 04:32 Vitamin B12 227 pg/ml (180-914) 04/24/23 07:45 Folate 10.57 ng/ml (>5.38) 04/24/23 07:45 Procalcitonin 4.33 ng/ml (0-0.5) H 04/22/23 11:38 Random Cortisol 54.27 mcg/dl 04/22/23 11:38 Urine Color Yellow 04/22/23 12:38 Urine Appearance Clear (Clear) 04/22/23 12:38 Urine pH 5.0 (4.5-7.5) 04/22/23 12:38 Ur Specific [place] 1.012 (1.000-1.030) 04/22/23 12:38 Urine Protein Negative (Negative) 04/22/23 12:38 Urine Glucose (UA) Negative (Negative) 04/22/23 12:38 Urine Ketones Negative (Negative) 04/22/23 12:38 Urine Blood Negative (Negative) 04/22/23 12:38 Urine Nitrite Negative (Negative) 04/22/23 12:38 Urine Bilirubin Negative (Negative) 04/22/23 12:38 Urine Urobilinogen Negative (Negative) 04/22/23 12:38 Ur Leukocyte Esterase Negative (Negative) 04/22/23 12:38 Urine Osmolality 277 mOsm/kg (500-800) L 04/22/23 12:38 Ur Random Creatinine 65.8 mg/dl 04/22/23 12:38 Ur Random Sodium 25 mmol/L 04/22/23 12:38 Ur Random Potassium 40.4 mmol/L 04/22/23 12:38 Ur Random Chloride 45 mmol/L 04/22/23 12:38 Ur Random Uric Acid 12 mg/dL 04/22/23 12:38 Fluid Neutrophils % 47 % 04/23/23 09:20 Fluid Neutrophils % 73 % 04/23/23 09:20 Fluid Lymphocytes % 2 % 04/23/23 09:20 Fluid Lymphocytes % 6 % 04/23/23 09:20 Fluid Eosinophils % 2 % 04/23/23 09:20 Fl Monocyt/Macrophag % 21 % 04/23/23 09:20 Fl Monocyt/Macrophag % 49 % 04/23/23 09:20 Fluid Slide Review 04/23/23 09:20 Fluid Slide Review 04/23/23 09:20 Fluid Comment 04/23/23 09:20 Fluid Comment 04/23/23 09:20 Nasal Screen MRSA (PCR) Negative (Negative) 04/22/23 12:43 BAL CD4/CD8 Ratio See Comment 04/23/23 09:20 Salicylates < 3.0 mg/dl (3.0-30) L 04/22/23 12:38 Urine Opiates Screen Neg (Neg) 04/22/23 12:38 Ur Methadone, Qual Neg (Neg) 04/22/23 12:38 Acetaminophen < 3 ug/ml (10-30) L 04/22/23 12:38 Urine Barbiturates Neg (Neg) 04/22/23 12:38 Ur Phencyclidine (PCP) Neg (Neg) 04/22/23 12:38 U Amphetamin/Meth Scrn Neg (Neg) 04/22/23 12:38 MDMA (Ecstasy) Screen Pos (Neg) H 04/22/23 12:38 U Benzodiazepines Scrn Neg (Neg) 04/22/23 12:38 Ur Cocaine Metabolite Neg (Neg) 04/22/23 12:38 U Marijuana (THC) Screen Neg (Neg) 04/22/23 12:38 Ethyl Alcohol mg/dL < 10.0 mg/dl (<10.0) 04/22/23 14:06 Rheumatoid Factor 14 IU/mL (<14) H 04/23/23 05:55 Double Strand DNA Ab <1 IU/mL 04/22/23 12:39 Adenovirus (PCR) Not Detected (NotDetected) 04/22/23 11:40 B. pertussis DNA (PCR) Not Detected (NotDetected) 04/22/23 11:40 B.parapertussis DNA PCR Not Detected (NotDetected) 04/22/23 11:40 C. pneumoniae DNA (PCR) Not Detected (NotDetected) 04/22/23 11:40 Coronavirus OC43 (PCR) Not Detected (NotDetected) 04/22/23 11:40 Coronavirus HKU1 (PCR) Not Detected (NotDetected) 04/22/23 11:40 Coronavirus 229E (PCR) Not Detected (NotDetected) 04/22/23 11:40 SARS-CoV-2 (PCR) Not Detected (NotDetected) 04/22/23 11:40 Coronavirus NL63 (PCR) Not Detected (NotDetected) 04/22/23 11:40 Hepatitis A IgM Ab NON-REACTIVE (NON-REACTIVE) 04/24/23 04:32 Hep Bs Antigen NON-REACTIVE (NON-REACTIVE) 04/24/23 04:32 Hep Bs Ag Confirmation TNP 04/24/23 04:32 Hep B Core IgM Ab NON-REACTIVE (NON-REACTIVE) 04/24/23 04:32 Hepatitis C Ab (EIA) REACTIVE (NON-REACTIVE) A 04/24/23 04:32 HCV RNA (PCR) IUs/ml 445 IU/mL (NOT DETECTED) H 04/24/23 04:32 HCV RNA PCR log IUs/ml 2.65 Log IU/mL (NOT DETECTED) H 04/24/23 04:32 Hepatitis C RNA Comment SEE NOTE 04/24/23 04:32 HIV (1&2) Ag & Ab Conf NON-REACTIVE (NON-REACTIVE) 04/24/23 04:32 Human Metapneumovir PCR Not Detected (NotDetected) 04/22/23 11:40 Influenza Type A (PCR) Not Detected (NotDetected) 04/22/23 11:40 Influenza Type B (PCR) Not Detected (NotDetected) 04/22/23 11:40 Urine Legionella Ag SEE NOTE 04/22/23 12:38 M. pneumoniae (PCR) Not Detected (NotDetected) 04/22/23 11:40 Parainfluenza 1 (PCR) Not Detected (NotDetected) 04/22/23 11:40 Parainfluenza 2 (PCR) Not Detected (NotDetected) 04/22/23 11:40 Parainfluenza 3 (PCR) Not Detected (NotDetected) 04/22/23 11:40 Parainfluenza 4 (PCR) Not Detected (NotDetected) 04/22/23 11:40 Pneumocystis Source BRONCH LAV 04/23/23 09:20 Pneumocyst jirovecii PCR NOT DETECTED 04/23/23 09:20 RSV (PCR) Not Detected (NotDetected) 04/22/23 11:40 Entero/Rhino (PCR) Not Detected (NotDetected) 04/22/23 11:40 Blood Type O Positive 04/22/23 11:49 Antibody Screen NEGATIVE 04/22/23 11:[address] 04/23/23 17:00 CT SCAN OF THE CHEST WITHOUT IV CONTRAST CLINICAL HISTORY: Respiratory failure. COMPARISON STUDY: Chest x-ray dated 04/23/2023. Chest CT dated 12/04/2022. TECHNIQUE: CT scan of the thorax was performed from the thoracic inlet to the upper abdomen. Images are reviewed in the axial, sagittal, and coronal planes. IV contrast was not administered for this examination as per the referring clinician. A dose lowering technique was utilized adhering to the principles of ALARA. The examination is significantly degraded by motion artifact, as well as by streak artifact from the arms which could not be elevated above the chest. CT DOSE: 816.14 mGy.cm FINDINGS: Thyroid: The thyroid gland is mildly enlarged and heterogeneous. Thoracic aorta: There is mild atherosclerotic calcification of the thoracic aorta, which is normal in caliber and demonstrates standard 3-vessel arch anatomy. Heart: The heart is mildly enlarged and without pericardial effusion. The coronary arteries are densely calcified. This is advanced for age. Lungs and pleural spaces: An endotracheal tube terminates above the misti. Evaluation of the lung parenchyma is degraded by motion artifact. There is diffuse intralobular septal thickening. Diffuse groundglass change is seen throughout both lungs. Air trapping is noted at the left lung base. More focal areas of patchy airspace consolidation are seen throughout both lungs, greatest at the apices and at the lung bases. No pneumothorax is identified. Secretions are noted in the upper trachea. Mediastinum: There is mediastinal lymphadenopathy. Prevascular nodes measure up to 11 mm in short axis. Paratracheal nodes measure up to 18 mm in short axis. A subcarinal node measures up to 25 mm in short axis. Sameera: Not well assessed without IV contrast. Axillae: There is no axillary lymphadenopathy. Upper abdomen: An enteric tube terminates below the diaphragm in the stomach. There is trace perihepatic ascites. Skeletal structures: Degenerative change and mild hyperkyphosis is noted in the spine. There is a minimal superior endplate compression deformity of L1. No lytic or blastic bony lesions are seen. There are chronic bilateral anterior rib fractures. IMPRESSION: 1. Endotracheal and enteric tubes are in place. 2. The heart is mildly enlarged and the coronary arteries are densely calcified. This is advanced for age. 3. Diffuse intralobular septal thickening suggests fluid overload/congestive change. 4. There is diffuse groundglass change seen throughout both lungs with more focal areas of patchy airspace consolidation. This could represent pulmonary edema, ARDS, and/or a nonspecific infectious/inflammatory pneumonitis. Clinical correlation will be essential. Follow-up to resolution is recommended. 5. No pleural effusion is seen. 6. Mediastinal lymphadenopathy is nonspecific and similar previous. 7. Trace perihepatic ascites. 8. Additional findings as above. ACT 112: Negative or not required by law. Electronically signed by: Ja Villanueva M.D. 04/23/2023 5:06 PM Chest X-Ray 04/25/23 07:29 XR chest 1V portable CLINICAL HISTORY: f/u COMPARISON STUDY: Chest radiograph and chest CT April 23, 2023. FINDINGS: The endotracheal and nasogastric tubes have been removed. Right internal jugular central line remains in place. There is no pneumothorax or pleural effusion. Diffuse interstitial thickening and bilateral airspace opacities persist. Cardiomegaly is again noted. IMPRESSION: Diffuse interstitial thickening and bilateral airspace opacities, similar to prior chest radiograph and chest CT. These remain nonspecific. Primary considerations include pulmonary edema or an infectious etiology. ACT 112: Negative or not required by law. Electronically signed by: Kush Rueda M.D. 04/25/2023 9:38 AM Ordered Studies 04/22/23 12:49 US point of care ultrasound Urgent 04/23/23 17:00 CT chest diagnostic wo con Routine Hospital Course (1) Acute respiratory failure: Acute on chronic respiratory failure with hypoxia VDRF Multifactorial Suspected pneumonia Pulmonary hypertension Fluid overload Chronic oxygen dependency --CT Chest:Endotracheal and enteric tubes are in place. The heart is mildly enlarged and the coronary arteries are densely calcified. This is advanced for age. Diffuse intralobular septal thickening suggests fluid overload/congestive change. There is diffuse groundglass change seen throughout both lungs with more focal areas of patchy airspace consolidation. This could represent pulmonary edema, ARDS, and/or a nonspecific infectious/inflammatory pneumonitis. Clinical correlation will be essential. Follow-up to resolution is recommended. No pleural effusion is seen. Mediastinal lymphadenopathy is nonspecific and similar previous. Trace perihepatic ascites. --S/P extubation on 04/24/2023 --S/P bronchoscopy/bronchial lavage. 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 Advised to follow-up with her primary care physician on discharge. Also advised to complete the antibiotic course as prescribed. Supplemental oxygen was arranged. 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 --ECHO: EF 60 to 70%. Mild concentric LVH. Evaluate trileaflet. Moderate focal calcification of the noncoronary aortic valve cusp. Moderate valvular aortic stenosis. Mild aortic regurgitation. Mild mitral and tricuspid regurgitation. Estimated systolic pulmonary pressure is 40 mmHg --Monitor volume status closely Resumed torsemide (7) Aortic stenosis: Echo as above Continue current medications (8) Depression: Continue escitalopram, Buspar, trazodone (9) Coronary artery disease: Continue Lipitor, aspirin, Plavix, metoprolol (10) Diabetes mellitus, type 2: HbA1c 5.3 Hold metformin Continue insulin while hospitalized Monitor BGs (11) Hypertension: Lisinopril held due to septic shock Monitor BP Resume home medications as able Pulmonary hypertension Type II with moderate aortic stenosis Has been on spironolactone, metoprolol succinate as well as torsemide at home Echo as above Continue current meds (12) Polysubstance abuse: currently on suboxone, Lexapro, gabapentin, buspar, flexeril and trazodone Toxicology screen not contributory Continue home medications Will adjust gabapentin dose based on renal function (13) Anemia, iron deficiency: Chronic Resume iron supplements as able Monitor (14) Seizure disorder: Continue Keppra DVT Px: SCDs Heparin SQ Code Status Full Code Disposition Left AGAINST MEDICAL ADVICE Total Time Total Time Spent Total Time Spent (In Minutes): 56 minutes Discharge Plan Discharge Items Patient Disposition: Against Medical Advice Reason For Visit: ACUTE HYPOXIC RESPIRATORY FAILURE Activity: Per Instructions section Non-emergency contact: Primary Care Provider Follow-up/Referrals: Irvin Iverson MD [Primary Care Provider] - (Date & Time 04/30/2023 3:20 PM Provider Marielena Cline CRNP Department [facility] ) Addtl Case Briefer Provider Instructions: Follow-up with your physician Dr. Iverson in 1 week as scheduled -Your blood test and bronchial cultures are pending at the time of discharge. Follow-up with your physician for results. -Use oxygen via nasal cannula 2 L with activity as advised. -Complete antibiotic course azithromycin, cefdinir as prescribed. Seek immediate medical attention if your symptoms reoccur or worsen Please take all medications as instructed on discharge list below. Please call if you have any questions or problems. You can reach a [facility] hospitalist on duty at [facility] 24 hours a day by calling [phone] Pending Studies at Discharge: Yes Stand-Alone Forms: [facility], Smoking Cessation Medications and DC Order Prescriptions: New pantoprazole 40 mg Tablet,Delayed Release (Dr/Ec) 40 mg PO DAILY Qty: 30 0RF azithromycin 500 mg tablet 500 mg PO DAILY Qty: 2 0RF cefdinir 300 mg capsule 300 mg PO BID Qty: 7 0RF Continued aspirin 81 mg Tablet,Delayed Release (Dr/Ec) 81 mg PO DAILY famotidine 20 mg Tablet 20 mg PO BID PRN (Reason: Heartburn) nitroglycerin 0.4 mg Tablet, Sublingual 0.4 mg sublingual DAILY PRN (Reason: Chest Pain) gabapentin 300 mg capsule 600 mg PO BID@0800,1400 fluticasone furoate-vilanterol [Breo Ellipta] 200-25 mcg/dose Blister With Device 1 inh INHALATION QAM buprenorphine-naloxone 8-2 mg film 1 film sublingual DAILY meclizine 25 mg tablet 25 mg PO TID PRN (Reason: Dizziness) ferrous sulfate 325 mg (65 mg iron) tablet 325 mg PO Q2D gabapentin 300 mg Capsule 900 mg PO HS cyclobenzaprine 10 mg tablet 10 mg PO BID atorvastatin 80 mg tablet 80 mg PO QAM torsemide 20 mg tablet 20 mg PO DAILY Hold Instructions: Resume on 12/18/22. Please check with primary care physician prior to resuming this. albuterol sulfate 2.5 mg /3 mL (0.083 %) solution for nebulization 2.5 mg inhalation Q4 PRN (Reason: WHEEZE/COUGH) trazodone 50 mg tablet 100 mg PO HS polyethylene glycol 3350 [Miralax] 17 gram Powder In Packet 17 g PO DAILY PRN (Reason: Constipation) levetiracetam 500 mg tablet 500 mg PO AMHS clopidogrel 75 mg tablet 75 mg PO DAILY potassium chloride [Klor-Con M20] 20 mEq tablet,ER particles/crystals 20 meq PO QAM metformin 1,000 mg tablet 1,000 mg PO BID Hold Instructions: Resume on 12/18/22. Please check with primary care physician prior to resuming. lisinopril 5 mg tablet 5 mg PO QAM metoprolol succinate 25 mg tablet extended release 24 hr 25 mg PO DAILY albuterol sulfate 90 mcg/actuation HFA aerosol inhaler 2 puff INHALATION Q4 PRN (Reason: cough or wheezing) buspirone 15 mg Tablet 15 mg PO AMHS escitalopram oxalate 20 mg tablet 20 mg PO QAM Discharge Orders: Left Against Medical Advice (Routine); Ordered 04/26/23 Ordered By: Kevin Shah Admission Data Admit Date/Time: 04/22/23 12:30 Attending Provider: Kevin Shah Admit Provider: Zina Smith Primary Care Provider: Irvin Iverson Other Providers: Fany Iraheta; Charlette De Jesus
[2023-04-27 11:57] LABS: MDA negative; MDEA negative; MDMA (Ecstasy) Urine, Confirm negative
[2023-04-30 23:47] LABS: Anti-Centromere Ab <1.0 NEG AI (<1.0 NEG); Anti-Glom Basement Antibody <1.0 AI (<1.0); Anti-Neutrophil Antibody NONE DETECTED (NONE DETECTED); Anti-SS-A <1.0 NEG AI (<1.0 NEG); Anti-SS-B <1.0 NEG AI (<1.0 NEG); Cyclic Citrullinated Pep IgG <16 UNITS; JO 1 Antibody <1.0 NEG AI (<1.0 NEG); Mycoplasma pneumoniae Ab, IgM 156 U/mL (<770); Proteinase-3 Ab <1.0 AI; RNP Antibody <1.0 NEG AI (<1.0 NEG); Scleroderma Anti Scl-70 Ab <1.0 NEG AI (<1.0 NEG); Sm Antibody <1.0 NEG AI (<1.0 NEG)
== END 2023-04-26 14:48 | disposition left against medical advice (07) | DRG 871 ==
LOC: ED 11:09 → 1E 12:30 → SUATTDRO 12:30 → 1E 12:44 → 2E 18:14 → 1E 04-23 18:58 → 2S 04-25 13:00

== ENCOUNTER 2023-05-31 14:49 | Inpatient (IN) ==
--- NOTE | 2023-05-31 14:55 | ED Triage Note ---
Date of Service May 31, 2023 Provider in Triage Author: Gardenia Kruger History of Present Illness This patient was briefly evaluated while in triage. An abbreviated physical exam was performed. This patient is a 43-year-old Female who presents to the ED for evaluation of chest pressure and SOB started today diagnosed with COVID 05/28 recent admission/intubation for acute respiratory failure Physical Exam GENERAL: NAD, ambulatory into triage CARDIOVASCULAR: RRR RESPIRATORY: BS diminished with harsh rhonchi and wheezes throughout Initial orders for labs and / or imaging were placed and patient was placed in the waiting area until a bed is available. Please see further documentation for the full ED course.
[2023-05-31 15:45] LABS: Basophils # (auto) 0.03 K/uL (0.00-0.20); Basophils % (auto) 0.4 %; Eosinophils # (auto) 0.12 K/uL (0.00-0.50); Eosinophils % (auto) 1.5 %; Hematocrit (blood only) 25.7 % (37.0-47.0); Immature Granulocytes # (auto) 0.03 K/uL (0.01-0.20); Immature Granulocytes % (auto) 0.4 %; Lymphocytes # (auto) 2.07 K/uL (1.20-3.40); Lymphocytes % (auto) 25.7 %; Mean Corpuscular Hemoglobin 26.1 pg (25.0-34.0); Mean Corpuscular Hgb Conc 31.1 g/dL (32.0-36.0); Mean Corpuscular Volume 83.7 fL (80.0-100.0); Mean Platelet Volume 10.4 fL (9.4-12.4); Platelet Count 282 K/uL (130-400); RDW Coefficient of Variation 17.3 % (11.5-14.5); RDW Standard Deviation 53.1 fL (36.4-46.3); Red Blood Count 3.07 M/uL (4.20-5.40); White Blood Count 8.05 K/ul (4.8-10.8)
[2023-05-31 15:47] LABS: Appearance Urine Clear (Clear); Bilirubin Urine Negative (Negative); Blood Urine Negative (Negative); Color Urine Yellow; Glucose Urine UA Negative (Negative); Ketones Urine Negative (Negative); Leukocyte Esterase Urine Negative (Negative); Nitrite Urine Negative (Negative); Protein Urine Negative (Negative); Specific Gravity Urine 1.009 (1.000-1.030); Urobilinogen Urine Negative (Negative); pH Urine 5.5 (4.5-7.5)
[2023-05-31 16:00] LABS: Albumin Level 3.1 gm/dl (3.4-5.0); BUN Creatinine Ratio 13.4 (10-20); Bilirubin,Total 0.2 mg/dl (0.2-1.0); Calcium 8.1 mg/dl (8.6-10.3); Creatinine Clr Calc Pharmacy 38.3 ml/min; Est GFR (African American) 37.2 ml/min; Est GFR (Non-African American) 32.1 ml/min; Potassium 4.1 mmol/L (3.5-5.1); Total Protein 6.1 gm/dl (6.0-8.3)
[2023-05-31 16:07] LABS: Troponin I High Sensitivity 7.7 pg/ml (0-14)
[2023-05-31] MEDS: dexAMETHasone**PF** 10 MG/ML VIAL IV ONE (16:08)
[2023-05-31] MEDS: ALBUT/IPRATROP 3MG/0.5MG NEB 3 ML VIAL NEB STA (16:09)
[2023-05-31 16:13] LABS: Partial Thromboplastin Ratio 1.2; Partial Thromboplastin Time 35 Seconds (21-31); Prothrombin Time 10.7 Seconds (9.0-12.0)
--- NOTE | 2023-05-31 16:20 | Emergency Department Note ---
Impression & Plan Pneumonia due to severe acute respiratory syndrome coronavirus 2 (SARS-CoV-2), Hypoxia, Anemia, AJIT (acute kidney injury) ED Provider Note NAME: ROGER WEEKS AGE: 43 SEX: F : 1980 ARRIVES VIA: Walk-In INFORMANT: Patient, ED PROVIDER(S): Carlos Posada DO CHIEF COMPLAINT: Shortness of breath HPI: The patient is a 43-year-old female who has a history of renal insufficiency who was recently diagnosed with COVID-19 presented to the emergency department for evaluation of difficulty breathing. She was seen our facility recently for similar complaints. She was diagnosed with COVID-19. She states that she is doing her albuterol nebulizer with only minimal relief of her symptoms. She started having chest tightness and more difficulty breathing so she presented to the emergency department today for further evaluation. She denies having any leg swelling or hemoptysis. ROS: See above HPI for pertinent positives & negatives. A total of 10 systems reviewed and were otherwise negative. PAST MEDICAL HISTORY: See Below PAST SURGICAL HISTORY: See Below FAMILY HISTORY: See Below SOCIAL HISTORY: See Below HOME MEDICATIONS: See Below ALLERGIES: See Below VITALS: See Below PHYSICAL EXAMINATION: GENERAL: Patient is awake alert in no acute distress patient is resting comfortably and showing no signs of anxiety EYES: The conjunctivae are clear. The pupils are round and reactive. EARS, NOSE, MOUTH AND THROAT: The nose is without any evidence of any deformity. Mucous membranes are moist. Tongue is midline. NECK: The neck is nontender and supple. RESPIRATORY: Diminished breath sounds are noted throughout with expiratory wheezing. There is no conversational dyspnea appreciated. CARDIOVASCULAR: Regular rate and rhythm noted there no murmurs rubs or gallops normal S1 normal S2. GASTROINTESTINAL: The abdomen is soft. Abdomen is nontender. MUSCULOSKELETAL/EXTREMITIES: There is no evidence of gross deformity full range of motion is noted in the hips and shoulders. SKIN: There is no obvious evidence of any rash. There are no petechiae, pallor or cyanosis noted. NEUROLOGIC: Patient is awake alert and oriented x3 MEDICAL DECISION MAKING: The patient is a 43-year-old female who presented to the emergency department for an evaluation of difficulty breathing. She was seen in our facility recently. She was diagnosed with COVID and was able to be discharged home. She presents to the emergency department today with worsening symptoms. She was treated with steroids as well as bronchodilators. She was significantly improved but started having episodes of hypoxia. She was treated with supplemental oxygen. I discussed her condition with the on-call [facility]. They have agreed to evaluate the patient in the emergency department. She does have underlying kidney disease as well as anemia. I do feel that these are not helping her with this infection. She was treated with IV fluids. Triage Nursing notes reviewed. Prior medical records reviewed Vital Signs: reviewed and remarkable for hypoxia. Differential diagnosis: Reactive airway disease, pneumonia, pneumothorax, COPD, CHF, infections, cardiac ischemia, pulmonary embolism, musculoskeletal, gastrointestinal, as well as other pathologies. ER treatment provided: See below Diagnostics interpreted by me: ECG: EKG was obtained in the emergency department. Interpretation is normal sinus rhythm at 80 bpm. There is no ectopy. There is no acute ST segment abnormalities noted. This was compared to a tracing from May 28, 2023. No changes were noted. Cardiac Monitoring: An order was placed for continuous cardiac monitoring. The monitor shows a rate of 89 bpm with sinus rhythm. Laboratory studies: As stated above and show below. Imaging studies: See below. Radiographic imaging was reviewed by myself Consultation(s): I discussed this case with Judith who is on-call for the [facility] group. Past Med/Surg History Medical History CKD (chronic kidney disease), stage III Polysubstance abuse Methamphetamine abuse Cannabis abuse Opiate abuse, continuous Anemia, iron deficiency Aortic stenosis Aortic regurgitation Chronic diastolic CHF (congestive heart failure) History of drug abuse Depression GERD (gastroesophageal reflux disease) Seizure disorder Hepatosplenomegaly History of DVT (deep vein thrombosis) Asthma History of renal calculi Hepatitis C "Antibiotic screen positive, quantitative RNA positive 08/30/17" Hypertension Diabetes mellitus, type 2 Coronary artery disease Premature atherosclerotic coronary disease s/p 2-vessel coronary intervention 10/2016 receiving ROJAS to the ramus intermedius and distal circumflex for NTEMI, Repeat catheterization 02/23/2020, s/p PCI with ROJAS to the RCA PDA on 02/23/20 Surgical History S/P coronary artery stent placement History of lumbar spinal fusion Hx of tonsillectomy History of carpal tunnel surgery History of cardiac cath 2017- 1 ROJAS to ramus, 2 ROJAS to L circumflex. 40-50% plaque to LAD 2018- distal disease (80%) within PDA Status post cholecystectomy Family History Other Diabetes Heart disease Hypertension Kidney stones Seizures Social History Smoking Status: Current every day smoker Tobacco Type: Cigarettes Cigarettes Per Day: <20; Second Hand Exposure: Yes; Do You Dip or Chew Tobacco: No; Hx Alcohol Use: Yes Alcohol type: beer, wine and hard liquor Hx Substance Use: Yes Non-Prescribed Medications: Heroin, IV Drugs and Methamphetamines Last Used Substance: Unknown Last Used Substance Other:: 4 years ago Substance Use Type Other:: 3 years drug free per record Preferred Language: Icelandic Communication Ability: Unable Communication Ability Comment: Intubated/sedated Visual Impairment: No Limitations Hearing Ability: Normal Brake Lining Curer Required: No Beliefs That Will Affect Care: None marital status: Single Current Living Situation: Spouse Current Living Situation Comment: Unknown due to pt condition How many Children do You have: 1 Feels Safe at Home: Yes Assistive Devices: Walker Allergies Allergies Allergy/AdvReac Type Severity Reaction Status Date / Time lidocaine Allergy Intermediate HIVES Verified 05/28/23 16:42 procaine Allergy Intermediate HIVES Verified 05/28/23 16:42 strawberry Allergy Intermediate HIVES Verified 05/28/23 16:42 Penicillins Allergy Mild HAD NO Verified 05/28/23 16:42 PROBLEM WITH ZOSYN mushroom Allergy Unknown Unknown Verified 05/28/23 16:42 onion Allergy Unknown Unknown Verified 05/28/23 16:42 COVID-19 (SARS-CoV-2) AdvReac Severe stopped Verified 05/28/23 16:42 vaccine, zoraida breathing next day cephalexin AdvReac Intermediate YEAST Verified 05/28/23 16:42 INFECTIONS tramadol AdvReac Intermediate SEIZURES Verified 05/28/23 16:42 azithromycin AdvReac Mild STOMACH Verified 05/28/23 16:42 PAIN Home Meds Home Medications Medication Instructions Recorded Confirmed albuterol sulfate 2.5 mg/3 mL 2.5 mg inhalation Q4 PRN 07/10/21 05/31/23 (0.083 %) solution for nebulization WHEEZE/COUGH albuterol sulfate 90 mcg/actuation 2 puff inhalation Q4 PRN cough or 07/10/21 05/31/23 aerosol inhaler wheezing atorvastatin 80 mg tablet 80 mg PO QAM 07/10/21 05/31/23 buspirone 15 mg tablet 15 mg PO AMHS 07/10/21 05/31/23 clopidogrel 75 mg tablet 75 mg PO DAILY 07/10/21 05/31/23 cyclobenzaprine 10 mg tablet 10 mg PO BID 07/10/21 05/31/23 escitalopram oxalate 20 mg tablet 20 mg PO QAM 07/10/21 05/31/23 levetiracetam 500 mg tablet 500 mg PO AMHS 07/10/21 05/31/23 lisinopril 5 mg tablet 5 mg PO QAM 07/10/21 05/31/23 metformin 1,000 mg tablet 1,000 mg PO BID 07/10/21 05/31/23 metoprolol succinate 25 mg 25 mg PO DAILY 07/10/21 05/31/23 tablet,extended release 24 hr polyethylene glycol 3350 17 gram 17 g PO DAILY PRN Constipation 07/10/21 05/31/23 oral powder packet (Miralax) potassium chloride 20 mEq 20 meq PO QAM 07/10/21 05/31/23 tablet,extended release(part/cryst) (Klor-Con M) torsemide 20 mg tablet 20 mg PO DAILY 07/10/21 05/31/23 trazodone 50 mg tablet 100 mg PO HS 07/10/21 05/31/23 aspirin 81 mg tablet,delayed 81 mg PO DAILY 03/03/22 05/31/23 release famotidine 20 mg tablet 20 mg PO BID PRN Heartburn 03/03/22 05/31/23 fluticasone furoate 200 1 inh inhalation QA 03/03/22 05/31/23 mcg-vilanterol 25 mcg/dose inhalation powder (Breo Ellipta) gabapentin 300 mg capsule 600 mg PO BID@0800,1400 03/03/22 05/31/23 nitroglycerin 0.4 mg sublingual 0.4 mg sublingual DAILY PRN Chest 03/03/22 05/31/23 tablet Pain ferrous sulfate 325 mg (65 mg 325 mg PO Q2D 04/22/23 05/31/23 iron) tablet gabapentin 300 mg capsule 900 mg PO HS 04/22/23 05/31/23 meclizine 25 mg tablet 25 mg PO TID PRN Dizziness 04/22/23 05/31/23 buprenorphine 8 mg-naloxone 2 mg 1 tab sublingual DAILY 05/28/23 05/31/23 sublingual tablet Results & Data (ED) Vital Signs Vital Signs - 24 hr 05/31/23 14:55 05/31/23 14:55 05/31/23 15:27 Temperature 36.5 C Temperature Source Temporal Artery Scan Pulse Rate 92 H Pulse Rate [Apical] 81 Pulse Rhythm [Apical] Regular Pulse Strength [Apical] Normal Respiratory Rate 22 19 Respiratory Effort / Characteristics Spontaneous SOB on Exertion Respiratory Depth Normal Respiratory Pattern Regular Regular Regular Blood Pressure 99/64 L Blood Pressure [Right Arm] 127/82 Blood Pressure Mean 75 Blood Pressure Mean [Right Arm] 97 Pulse Oximetry 95 96 Oxygen Delivery Method Room Air Room Air Room Air Oxygen Flow Rate Sepsis Recent Fever Within 48 Hours No Sepsis New/Unexplained Change in Mental Status No Sepsis Action Taken by Nursing No Action Required Oxygen Flow Rate - Titration Pulse Oximetry Post Tiitration 05/31/23 15:29 05/31/23 17:17 05/31/23 18:00 Temperature Temperature Source Pulse Rate Pulse Rate [Apical] Pulse Rhythm [Apical] Pulse Strength [Apical] Respiratory Rate 19 Respiratory Effort / Characteristics Non-Labored Spontaneous Respiratory Depth Normal Respiratory Pattern Regular Blood Pressure Blood Pressure [Right Arm] 114/68 Blood Pressure Mean Blood Pressure Mean [Right Arm] 83 Pulse Oximetry 95 88 L 95 Oxygen Delivery Method Room Air Room Air Nasal Cannula Oxygen Flow Rate 2 Sepsis Recent Fever Within 48 Hours Sepsis New/Unexplained Change in Mental Status Sepsis Action Taken by Nursing Oxygen Flow Rate - Titration 2 Pulse Oximetry Post Tiitration 95 Home Medications Current Medication List: was personally reviewed by me Laboratory Data Attestation: I reviewed the patient's lab results. 05/31/23 Unknown 05/31/23 Unknown Lab Results 05/31/23 Range/Units Unknown WBC 8.05 (4.8-10.8) K/ul RBC 3.07 L (4.20-5.40) M/uL Hgb 8.0 L (12.0-16.0) g/dl Hct 25.7 L (37.0-47.0) % MCV 83.7 (80.0-100.0) fL MCH 26.1 (25.0-34.0) pg MCHC 31.1 L (32.0-36.0) g/dL RDW Std Deviation 53.1 H (36.4-46.3) fL RDW Coeff of Hannah 17.3 H (11.5-14.5) % Plt Count 282 (130-400) K/uL MPV 10.4 (9.4-12.4) fL Immature Gran % (Auto) 0.4 % Neut % (Auto) 67.0 % Lymph % (Auto) 25.7 % Sumner % (Auto) 5.0 % Eos % (Auto) 1.5 % Baso % (Auto) 0.4 % Neut # (Auto) 5.40 (1.40-6.50) K/uL Lymph # (Auto) 2.07 (1.20-3.40) K/uL Sumner # (Auto) 0.40 (0.11-0.59) K/uL Eos # (Auto) 0.12 (0.00-0.50) K/uL Baso # (Auto) 0.03 (0.00-0.20) K/uL Immature Gran # (Auto) 0.03 (0.01-0.20) K/uL PT 10.7 (9.0-12.0) Seconds INR 1.0 (0.9-1.1) APTT 35 H (21-31) Seconds PTT Ratio 1.2 Sodium 139 (136-145) mmol/L Potassium 4.1 (3.5-5.1) mmol/L Chloride 109 H (98-107) mmol/L Carbon Dioxide 21 (21-32) mmol/L Anion Gap 9 (3-11) BUN 25 H (6-23) mg/dl Creatinine 1.86 H (0.6-1.2) mg/dl Est Cr Clr Drug Dosing 38.3 ml/min Est GFR ( Amer) 37.2 ml/min Est GFR (Non-Af Amer) 32.1 ml/min BUN/Creatinine Ratio 13.4 (10-20) Glucose 84 (70-99(Fasting)) mg/dl Calcium 8.1 L (8.6-10.3) mg/dl Total Bilirubin 0.2 (0.2-1.0) mg/dl AST 27 (13-39) U/L ALT 16 (7-52) U/L Alkaline Phosphatase 82 (34-104) U/L Troponin I High Sens 7.7 (0-14) pg/ml Total Protein 6.1 (6.0-8.3) gm/dl Albumin 3.1 L (3.4-5.0) gm/dl Globulin 3.0 (2.5-4.0) gm/dl Albumin/Globulin Ratio 1.0 (0.9-2) Urine Color Yellow Urine Appearance Clear (Clear) Urine pH 5.5 (4.5-7.5) Ur Specific Myra 1.009 (1.000-1.030) Urine Protein Negative (Negative) Urine Glucose (UA) Negative (Negative) Urine Ketones Negative (Negative) Urine Blood Negative (Negative) Urine Nitrite Negative (Negative) Urine Bilirubin Negative (Negative) Urine Urobilinogen Negative (Negative) Ur Leukocyte Esterase Negative (Negative) Administered Medications Discontinued Medications Albuterol (Albut/Ipratrop 3mg/0.5mg Neb 3 Ml Vial) 3 ml NEB NOW STA; Protocol Stop: 05/31/23 16:01 Last Admin: 05/31/23 16:09 Dose: 3 ml Documented By: CAROLINA Dexamethasone Sodium Phosphate (DexamethasonePf 10 Mg/Ml Vial) 10 mg IV NOW ONE Stop: 05/31/23 16:01 Last Admin: 05/31/23 16:08 Dose: 10 mg Documented By: CAROLINA Sodium Chloride (Nss) 1,000 mls @ 999 mls/hr IV .Q1H1M ONE Stop: 05/31/23 18:08 Last Infusion: 05/31/23 18:59 Dose: Infused Documented By: Admin: 05/31/23 17:16 Dose: 999 mls/hr Documented By: CAROLINA Imaging Data Attestation: I personally reviewed and interpreted this imaging study as follows: My Impression: 1 view chest x-ray was obtained in the emergency department. My interpretation is bilateral lower lobe infiltrates, final report below Radiologist's Impression: Chest X-Ray 05/31/23 14:57 SINGLE VIEW CHEST CLINICAL HISTORY: Dyspnea FINDINGS: An AP, portable, upright chest radiograph is compared to study dated 05/28/2023. The heart is enlarged. There is evidence of congestive failure. Bilateral airspace opacities likely represent pulmonary edema. No large pleural effusion or pneumothorax is seen. The bony thorax is grossly intact. IMPRESSION: 1. Cardiomegaly with evidence of congestive failure. This has worsened as compared to 05/28/2023. 2. Bilateral airspace opacities likely represent pulmonary edema. Correlate clinically for evidence of a superimposed pneumonia. ACT 112: Negative or not required by law. Electronically signed by: Ja Villanueva M.D. 05/31/2023 4:39 PM Discharge Plan Visit Data Chief Complaint: Respiratory Problems Stated Complaint: SOB/CHEST FEELS TIGHTER ED Provider: Carlos Posada Discharge Problem: Pneumonia due to severe acute respiratory syndrome coronavirus 2 (SARS-CoV-2), Hypoxia, Anemia, AJIT (acute kidney injury) Patient Disposition: Being Evaluated by Hospitalist Forms Stand Alone Forms: My [facility] Prescriptions Prescriptions: No Action aspirin 81 mg Tablet,Delayed Release (Dr/Ec) 81 mg PO DAILY famotidine 20 mg Tablet 20 mg PO BID PRN (Reason: Heartburn) nitroglycerin 0.4 mg Tablet, Sublingual 0.4 mg sublingual DAILY PRN (Reason: Chest Pain) gabapentin 300 mg capsule 600 mg PO BID@0800,1400 fluticasone furoate-vilanterol [Breo Ellipta] 200-25 mcg/dose Blister With Device 1 inh INHALATION QAM meclizine 25 mg tablet 25 mg PO TID PRN (Reason: Dizziness) ferrous sulfate 325 mg (65 mg iron) tablet 325 mg PO Q2D gabapentin 300 mg Capsule 900 mg PO HS cyclobenzaprine 10 mg tablet 10 mg PO BID atorvastatin 80 mg tablet 80 mg PO QAM torsemide 20 mg tablet 20 mg PO DAILY Hold Instructions: Resume on 12/18/22. Please check with primary care physician prior to resuming this. albuterol sulfate 2.5 mg /3 mL (0.083 %) solution for nebulization 2.5 mg inhalation Q4 PRN (Reason: WHEEZE/COUGH) trazodone 50 mg tablet 100 mg PO HS polyethylene glycol 3350 [Miralax] 17 gram Powder In Packet 17 g PO DAILY PRN (Reason: Constipation) levetiracetam 500 mg tablet 500 mg PO AMHS clopidogrel 75 mg tablet 75 mg PO DAILY potassium chloride [Klor-Con M20] 20 mEq tablet,ER particles/crystals 20 meq PO QAM metformin 1,000 mg tablet 1,000 mg PO BID Hold Instructions: Resume on 12/18/22. Please check with primary care physician prior to resuming. lisinopril 5 mg tablet 5 mg PO QAM metoprolol succinate 25 mg tablet extended release 24 hr 25 mg PO DAILY albuterol sulfate 90 mcg/actuation HFA aerosol inhaler 2 puff INHALATION Q4 PRN (Reason: cough or wheezing) buspirone 15 mg Tablet 15 mg PO AMHS escitalopram oxalate 20 mg tablet 20 mg PO QAM buprenorphine-naloxone 8-2 mg tablet, sublingual 1 tab SUBLINGUAL DAILY Referrals Referrals: Irvin Iverson MD [Primary Care Provider] - Discharge Problem: Anemia Qualifiers: Anemia type: unspecified type Qualified Code(s): D64.9 - Anemia, unspecified
--- NOTE | 2023-05-31 16:40 | XRay Report ---
SINGLE VIEW CHEST CLINICAL HISTORY: Dyspnea FINDINGS: An AP, portable, upright chest radiograph is compared to study dated 05/28/2023. The heart i s enlarged. There is evidence of congestive failure. Bilateral airspace opacities likely represent pu lmonary edema. No large pleural effusion or pneumothorax is seen. The bony thorax is grossly intact. IMPRESSION: 1. Cardiomegaly with evidence of congestive failure. This has worsened as compared to 05/28/2023. 2. Bilateral airspace opacities likely represent pulmonary edema. Correlate clinically for evidence o f a superimposed pneumonia. ACT 112: Negative or not required by law. Electronically signed by: Ja Villanueva M.D. 05/31/2023 4:39 PM
[2023-05-31] MEDS: SODIUM CHLORIDE 0.9% 1,000 ML IV ONE (17:16)
--- NOTE | 2023-05-31 18:48 | History & Physical Report ---
Date of Service May 31, 2023 Assessment & Plan (1) Hypoxia: (2) COVID-19: Plan: Admit to [facility] with telemetry Patient presenting from home with reports of worsening shortness of breath, cough, wheezing. Seen in ED on 05/28 and diagnosed with COVID-19. Patient with history of chronic hypoxic respiratory failure, wears 3 L of oxygen via nasal cannula on as-needed basis, has had increased use over the past few days. In the ED, hypoxic on room air at 88%, currently requiring 2 L of oxygen via nasal cannula CXR shows bilateral airspace opacities Check procalcitonin S/p IV dexamethasone in the ED, continue with IV dexamethasone 6 mg daily Discussed remdesivir with patient, she is hesitant to start at this time Pulmonary toilet with Mucinex, nebs, incentive spirometer, flutter valve (3) AJIT (acute kidney injury): (4) CKD (chronic kidney disease), stage III: Plan: Creatinine 1.8, mildly elevated from baseline Received IVF in the ED, will hold on additional at this time given underlying diastolic CHF and aortic stenosis Hold lisinopril, diuretics, potassium supplement pending repeat a.m. labs (5) Aortic stenosis: (6) Chronic diastolic CHF (congestive heart failure): Plan: Holding diuretics as above, resume as able CXR suggesting possible volume overload however patient examines euvolemic currently Check proBNP (7) Coronary artery disease: Plan: Appears stable, no reports of chest pain Continue ASA, Plavix, statin, beta-vijay (8) Diabetes mellitus, type 2: Plan: HgbA1c 5.3 03/2023 Hold metformin, utilize NovoLog per protocol while hospitalized (9) Polysubstance abuse: Plan: History of, Continue Suboxone (10) Seizure disorder: Plan: Chronic, stable Continue Keppra DVT PROPHYLAXIS SQ heparin Patient seen in collaboration with Dr. Garcia. I spent a total of 75 minutes coordinating, documenting, and providing care for this patient excluding time spent in the performance of separately billed services. This included personally reviewing all current laboratories and imaging studies, medication reconciliation, outpatient chart review, and discussion with specialists. History of Present Illness Chief Complaint: Shortness of breath Primary Care Provider: Irvin Iverson MD 42 year old female with PMH DM type II, diabetic peripheral neuropathy, chronic hypoxic respiratory failure on 3L oxygen, dyslipidemia, asthma, chronic diastolic heart failure, history of possible tricuspid valve endocarditis, HTN, aortic stenosis, premature CAD 10/2016 receiving ROJAS to the ramus intermedius and distal circumflex for NTEMI, s/p PCI with ROJAS to the RCA PDA on 02/23/20, chronic hepatitis C, history of polysubstance abuse on Suboxone, medical non compliance, and other problems listed below who presents to the ED for evaluation of shortness of breath. History obtained from the patient and review of outpatient PCP records. Patient reports that 4 days ago, she developed shortness of breath and chest congestion. Seen in the ED on 05/28 and diagnosed with COVID-19. Patient was discharged home. She reports progressive worsening shortness of breath, wheezing, cough. Cough is not productive for thick, yellow sputum. Patient has oxygen at home that she wears 3 L on a as needed basis. Reports increased use of oxygen over the past few days. She reports running intermittent fevers, last time she checked her temperature was yesterday and it was 102. She reports having bodyaches and chills. Has mild chronic lower extremity edema which is unchanged from baseline. She denies chest pain. No lightheadedness, dizziness, diaphoresis, syncopal events. She denies abdominal pain, nausea, vomiting, diarrhea. No urinary symptoms. In the ED, patient was hypoxic on room air at 88%, currently requiring 2 L of oxygen via nasal cannula. Labs show creatinine 1.8, mildly elevated from baseline. Hgb 8.0 which is at baseline. CXR shows bilateral airspace opacities. She was given nebulizer treatment, IV dexamethasone 10 mg, IVF. Allergies Allergy/AdvReac Type Severity Reaction Status Date / Time lidocaine Allergy Intermediate HIVES Verified 05/28/23 16:42 procaine Allergy Intermediate HIVES Verified 05/28/23 16:42 strawberry Allergy Intermediate HIVES Verified 05/28/23 16:42 Penicillins Allergy Mild HAD NO Verified 05/28/23 16:42 PROBLEM WITH ZOSYN mushroom Allergy Unknown Unknown Verified 05/28/23 16:42 onion Allergy Unknown Unknown Verified 05/28/23 16:42 COVID-19 (SARS-CoV-2) AdvReac Severe stopped Verified 05/28/23 16:42 vaccine, zoraida breathing next day cephalexin AdvReac Intermediate YEAST Verified 05/28/23 16:42 INFECTIONS tramadol AdvReac Intermediate SEIZURES Verified 05/28/23 16:42 azithromycin AdvReac Mild STOMACH Verified 05/28/23 16:42 PAIN Home Medications Medication Instructions Recorded Confirmed Type albuterol sulfate 2.5 mg/3 mL 2.5 mg inhalation Q4 PRN 07/10/21 05/31/23 History (0.083 %) solution for nebulization WHEEZE/COUGH albuterol sulfate 90 mcg/actuation 2 puff inhalation Q4 PRN cough or 07/10/21 05/31/23 History aerosol inhaler wheezing atorvastatin 80 mg tablet 80 mg PO QA 07/10/21 05/31/23 History buspirone 15 mg tablet 15 mg PO [facility] 07/10/21 05/31/23 History clopidogrel 75 mg tablet 75 mg PO DAILY 07/10/21 05/31/23 History cyclobenzaprine 10 mg tablet 10 mg PO BID 07/10/21 05/31/23 History escitalopram oxalate 20 mg tablet 20 mg PO QA 07/10/21 05/31/23 History levetiracetam 500 mg tablet 500 mg PO [facility] 07/10/21 05/31/23 History lisinopril 5 mg tablet 5 mg PO QA 07/10/21 05/31/23 History metformin 1,000 mg tablet 1,000 mg PO BID 07/10/21 05/31/23 History metoprolol succinate 25 mg 25 mg PO DAILY 07/10/21 05/31/23 History tablet,extended release 24 hr polyethylene glycol 3350 17 gram 17 g PO DAILY PRN Constipation 07/10/21 05/31/23 History oral powder packet (Miralax) potassium chloride 20 mEq 20 meq PO QAM 07/10/21 05/31/23 History tablet,extended release(part/cryst) (Klor-Con M) torsemide 20 mg tablet 20 mg PO DAILY 07/10/21 05/31/23 History trazodone 50 mg tablet 100 mg PO HS 07/10/21 05/31/23 History aspirin 81 mg tablet,delayed 81 mg PO DAILY 03/03/22 05/31/23 History release famotidine 20 mg tablet 20 mg PO BID PRN Heartburn 03/03/22 05/31/23 History fluticasone furoate 200 1 inh inhalation QA 03/03/22 05/31/23 History mcg-vilanterol 25 mcg/dose inhalation powder (Breo Ellipta) gabapentin 300 mg capsule 600 mg PO BID@0800,1400 03/03/22 05/31/23 History nitroglycerin 0.4 mg sublingual 0.4 mg sublingual DAILY PRN Chest 03/03/22 05/31/23 History tablet Pain ferrous sulfate 325 mg (65 mg 325 mg PO Q2D 04/22/23 05/31/23 History iron) tablet gabapentin 300 mg capsule 900 mg PO HS 04/22/23 05/31/23 History meclizine 25 mg tablet 25 mg PO TID PRN Dizziness 04/22/23 05/31/23 History buprenorphine 8 mg-naloxone 2 mg 1 tab sublingual DAILY 05/28/23 05/31/23 History sublingual tablet Past Med/Surg History Medical History CKD (chronic kidney disease), stage III Polysubstance abuse Methamphetamine abuse Cannabis abuse Opiate abuse, continuous Anemia, iron deficiency Aortic stenosis Aortic regurgitation Chronic diastolic CHF (congestive heart failure) History of drug abuse Depression GERD (gastroesophageal reflux disease) Seizure disorder Hepatosplenomegaly History of DVT (deep vein thrombosis) Asthma History of renal calculi Hepatitis C "Antibiotic screen positive, quantitative RNA positive 08/30/17" Hypertension Diabetes mellitus, type 2 Coronary artery disease Premature atherosclerotic coronary disease s/p 2-vessel coronary intervention 10/2016 receiving ROJAS to the ramus intermedius and distal circumflex for NTEMI, Repeat catheterization 02/23/2020, s/p PCI with ROJAS to the RCA PDA on 02/23/20 Surgical History S/P coronary artery stent placement History of lumbar spinal fusion Hx of tonsillectomy History of carpal tunnel surgery History of cardiac cath 2016- 1 ROJAS to ramus, 2 ROJAS to L circumflex. 40-50% plaque to LAD 2017- distal disease (80%) within PDA Status post cholecystectomy Family History Other Diabetes Heart disease Hypertension Kidney stones Seizures Social History Smoking Status: Current every day smoker Tobacco Type: Cigarettes Cigarettes Per Day: 10; Second Hand Exposure: Yes; Do You Dip or Chew Tobacco: No; Hx Alcohol Use: Yes Alcohol type: beer, wine and hard liquor Hx Substance Use: Yes Non-Prescribed Medications: Heroin, IV Drugs and Methamphetamines Last Used Substance: Unknown Substance Use Type Other:: 3 years drug free per record Preferred Language: Swazi Communication Ability: Effective Visual Impairment: No Limitations Hearing Ability: Normal Procurement Clerk Required: No Beliefs That Will Affect Care: None marital status: Single Current Living Situation: Significant Other Current Living Situation Comment: Unknown due to pt condition How many Children do You have: 1 Feels Safe at Home: Yes Assistive Devices: Oxygen - Continuous and Walker Physical Exam Constitutional: WD/WN, vitals as above no acute distress Eyes: PERRL, conjunctivae normal, anicteric sclerae ENMT: external ear and nose normal, oropharynx normal Respiratory: normal respiratory effort; no respiratory distress Auscul tation: + diminished lung sounds rhonci and expiratory wheezing noted in the anterior lung christina Cardiovascular: Rate/Rhythm: regular rate and regular rhythm Heart Sounds: + murmur (Grade 3/6, systolic) Vessels: normal peripheral pulses Extremities: + edema (Trace edema BLE) Gastrointestinal (Abdomen): normal bowel sounds, soft, nontender, no hepatosplenomegaly Musculoskeletal: no cyanosis or clubbing, extremities motor strength 5/5 Skin: no rashes, warm and dry Neurologic: PERRL, EOMI, accommodation nl, no face palsy, no dysarthria Psychiatric: A+Ox3, euthymic affect Results & Data Results & Data Vital Signs (Past 12 Hours) Vital Signs Temp Pulse Pulse Resp BP BP Pulse Ox 05/31/23 17:17 88 L 05/31/23 15:29 95 05/31/23 15:27 81 19 127/82 96 05/31/23 14:55 36.5 C 92 H 22 99/64 L 95 05/31/23 14:55 O2 Del Method 05/31/23 17:17 Room Air 05/31/23 15:29 Room Air 05/31/23 15:27 Room Air 05/31/23 14:55 Room Air 05/31/23 14:55 Room Air Laboratory Results Short CBC 05/31/23 Range/Units Unknown WBC 8.05 (4.8-10.8) K/ul Hgb 8.0 L (12.0-16.0) g/dl Hct 25.7 L (37.0-47.0) % Plt Count 282 (130-400) K/uL BMP 05/31/23 Unknown Sodium 139 Potassium 4.1 Chloride 109 H Carbon Dioxide 21 BUN 25 H Creatinine 1.86 H Glucose 84 Calcium 8.1 L Liver Function 05/31/23 Range/Units Unknown Total Bilirubin 0.2 (0.2-1.0) mg/dl AST 27 (13-39) U/L ALT 16 (7-52) U/L Alkaline Phosphatase 82 (34-104) U/L Albumin 3.1 L (3.4-5.0) gm/dl Urine 05/31/23 Range/Units Unknown Urine Color Yellow Urine Appearance Clear (Clear) Urine pH 5.5 (4.5-7.5) Ur Specific [place] 1.009 (1.000-1.030) Urine Protein Negative (Negative) Urine Glucose (UA) Negative (Negative) Code Status & VTE Plan VTE Prophylaxis Plan VTE Prophylaxis will be ordered: Yes Supervising Physician Co-Signing Physician Notes Pt seen and examined by myself, Joyce Garcia MD on the day of service. Care was coordinated with Judith Garcia PA-C. 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 Was seen recently and diagnosed with COVID, tested positive for COVID on 05/28/2023. States that she uses oxygen at home occasionally, on 2-3L at baseline per pt. Hgb 8.0, Cr 1.86, glucose of 84, UA negative, + COVID on 05/28/23, BNP 169, hs- trop 7.7 EKG NSR, procalcitonin 0.25 Chest XR with cardiomegaly, suggestion of acute CHF, pulm edema vs. pneumonia Echo 04/20- EF 65-70%, mild aortic stenosis BP 99/64 on presentation, HR 92 At time of exam, pt was AAOx3, comfortable on RA saturating >90% RRR, breath sounds coarse with scattered wheezes, +edema in lower extremities Acute on chronic hypoxic respiratory failure- likely acute flare in setting of recent COVID infection. Possible component of acute CHF. Low suspicion for superimposed bacterial pneumonia based on normal procal, chest xray findings. COVID infection- continue with Dexamethasone started in the ED per current recommendations for associated hypoxia, supplemental oxygen prn, wean as tolerated. Supportive measures. Acute CHF/Aortic Stenosis- BNP lower than last check, chest XRAY suggestive of acute flare. Consider CT chest for further evaluation, repeat echo. Received 1L of fluids in the ED. Consider gentle diuresis while monitoring BP. Was on RA at the time of admission. DMII- Basal/bolus per protocol. Consider glycemic consult in setting of need for dexamethasone with DM. AM hgba1c. Otherwise as above. (8) Diabetes mellitus, type 2 Diabetes mellitus complication status: with unspecified complications Diabetes mellitus supervisor intermediates insulin use: without senior living use Qualified Code(s): E11.8 - Type 2 diabetes mellitus with unspecified complications
[2023-05-31] MEDS ORDERED: GLUCOSE 40% GEL 15 GM TUBE PO PRN (21:50)
[2023-05-31] MEDS ORDERED: GLUCAGON FOR INJ 1 MG VIAL SQ PRN (21:50)
[2023-05-31] MEDS ORDERED: DEXTROSE 50% 50 ML SYRINGE IV PRN (21:50)
[2023-05-31] MEDS ORDERED: CARBOHYDRATES FOR HYPOGLYCEMIA PO PRN (21:50)
[2023-05-31] MEDS ORDERED: ACETAMINOPHEN 325 MG TAB PO PRN (21:50)
[2023-05-31] MEDS ORDERED: GLUCOSE 10 TAB/TUBE PO PRN (21:50)
[2023-05-31] MEDS: GABAPENTIN 300 MG CAP PO SCH (22:22)
[2023-05-31] MEDS: busPIRone 15 MG TAB PO SCH (22:23)
[2023-05-31] MEDS: CYCLOBENZAPRINE HCL 10 MG TAB PO SCH (22:24)
[2023-05-31] MEDS: levETIRAcetam 500 MG TAB PO SCH (22:24)
[2023-05-31] MEDS: guaiFENesin 600 MG TABCR PO SCH (22:25)
[2023-05-31] MEDS: traZODone HCL 100 MG TAB PO SCH (22:25)
[2023-05-31] MEDS: INSULIN HUMAN REGULAR PER UNIT 6 UNITS in SYRINGE 5.94 ML IV STA (22:46)
[2023-05-31] MEDS: INSULIN ASPART PER UNIT CHARGE SC SCH (22:47)
[2023-05-31] MEDS: BUPRENORPHINE/NALOXONE 8/2 MG TAB SL SCH (22:48)
[2023-05-31] MEDS: HEPARIN SOD 5,000 UNIT/0.5 ML VIAL SQ SCH (22:49)
[2023-05-31] MEDS: ALBUT/IPRATROP 3MG/0.5MG NEB 3 ML VIAL NEB SCH (23:19)
[2023-05-31] MEDS ORDERED: PHARMACY GLYCEMIC MGMT CONSULT PRN (23:46)
[2023-06-01] MEDS: INSULIN ASPART PER UNIT CHARGE SC STA ×2 (00:09→01:15)
[2023-06-01] MEDS: INSULIN ASPART PER UNIT CHARGE SC SCH ×2 (03:45→09:41)
--- OUTSIDE RECORDS SUMMARY | 2023-06-01 06:58 | External Medical Summary | Summary of Care ---
Author Name Unknown Organization [facility] Address [address] [place] [address] Phone [phone] Care Team Providers Care Spreader Operator Name Role Phone Irvin Iverson MD Primary Care Provider + Reason for Visit * Reason Comments eRx-Medication Refill Encounter Details Date Type Department Care Team ([facility] Contact Info) Description 05/30/2023 Refill Neurology [facility] [address] [place] [address] Gloria Dubois PA-C [address] [place] [address] Allergies Active Allergy Reactions Criticality Noted Date Comments Azithromycin Other (Please comment) 03/28/2004 cramps Covid-19 Mrna Vacc (Moderna) 07/24/2021 Severe SOB/ hospitalized. Eggs Or Egg-Derived Products 05/25/2022 Other reaction(s): vomiting Ensure 02/10/2007 Vomiting, diarrhea Mushroom Extract Complex Itching 12/17/2022 Mushrooms Novocain 02/15/2010 hives [place] Extract 05/25/2022 Other reaction(s): Hives Tramadol Seizure High 09/09/2012 documented as of this encounter (statuses as of 05/31/2023) Medications Medication Sig Dispensed Refills Start Date [...] 300 mL 1 1 Active oxygen IN GASIndications:Noct urnal hypoxemia Use as directed 2 L/min(Oxygen) as needed (via nasal cannula with exertion). titrate to off if SpO2 90-94%. 3 LPM via nasal cannula at bedtime and with all sleep. 1 Each 0 2 Active Atorvastatin Calcium 80 MG Oral Tablet (Lipitor)Indication s:HTN, goal below 140/80,Coronary artery disease involving [place] heart without angina pectoris, unspecified vessel or [...] EVERY DAY 100 Tablet 3 3 Active Acetaminophen ER 650 MG Oral Tablet Extended Release (Tylenol 8 Hour)Indications:Ac [place] nonintractable headache, unspecified headache type Take 1 [...] (congestive heart failure) (HCC),Coronary artery disease involving napaim[place] coronary artery of [place] heart without angina pectoris,Nonrheumat ic aortic valve stenosis,HTN, goal below 140/90 Take 1 Tablet by mouth in the morning. 90 Tablet 3 3 Active Potassium Chloride Yvonne ER 20 MEQ Oral Tablet Extended ReleaseIndications: Edema, unspecified type TAKE 1 TABLET BY MOUTH IN THE MORNING 30 Tablet 5 3 Active traZODone HCl 100 MG Oral Tablet (Desyrel) Take 1 Tablet by mouth at bedtime. 90 Tablet 3 3 Active Escitalopram Oxalate 20 MG Oral Tablet (Lexapro)Indication s:Depression with anxiety TAKE 1 TABLET BY MOUTH EVERY DAY 90 Tablet 1 3 Active Cyclobenzaprine HCl 10 MG Oral Tablet (Flexeril)Indicatio ns:Lumbar disc disease TAKE 1 TABLET BY MOUTH IN THE MORNING AND BEFORE BEDTIME 60 Tablet 0 4 Active Metoprolol Succinate ER 25 MG Oral Tablet Extended Release 24 Hour (toPROL XL)Indications:HTN, goal below 130/80 TAKE 1 TABLET BY MOUTH IN THE MORNING 90 Tablet 3 4 Active Clopidogrel Bisulfate 75 MG Oral Tablet (pLAVix)Indications :Coronary artery disease involving [place] heart without angina pectoris, unspecified vessel or lesion type,S/P coronary artery stent placement TAKE 1 TABLET BY MOUTH EVERY DAY 90 Tablet 1 4 Active Famotidine 20 MG Oral Tablet (Pepcid) TAKE 1 TABLET BY MOUTH 2 TIMES A DAY NEEDED FOR HEARTBURN. 180 Tablet 3 4 Active Gabapentin 300 MG Oral Capsule (Neurontin) TAKE 2 CAPS TWICE DAILY AND 3 CAPS AT BEDTIME 180 Capsule 1 4 Active Gabapentin 300 MG Oral Capsule (Neurontin) Take 2 tablets twice daily and 3 tab at bedtime 180 Capsule 1 3 05/31/19 24 Discontinued Hospital, Clinic, or Other Facility Administered Medication Ordered Dose Route Frequency Start Date End Date Status lidocaine 1 % inj 21 mgIndications:Cellulitis of arm, left,Abscess of multiple sites of upper arm 21 mg IJ Daily(AM) 09/20/2017 Active medroxyPROGESTERone acetate (DEPO-PROVERA) inj NORBERTO 150 mgIndications:Surveillance for Depo-Provera contraception 150 mg IM [id number] 09/09/2019 Active medroxyPROGESTERone (contracep) (Depo-Provera) inj 150 mgIndications:Encounter for surveillance of injectable contraceptive 150 mg IM [id number] 05/11/2023 05/05/2024 Active documented as of this encounter (statuses as of 05/31/2023) Active Problems Problem Noted Date Diagnosed Date [...] without hepatic coma 018 Overview: 09/13 dx [facility]. Genotype 1A. Confirmed 2021. New since 2015. Hx shared needles. Coronary artery disease invo lving napaimute heart without angina pectoris 12/19/2016 S/P coronary artery stent placement 12/19/2016 Nonrheumatic aortic valve stenosis 11/16/2016 History of narcotic addiction 01/20/2015 Overview: OD 01/2018 with neurontin Caution with neurontin, issues getting different scrips with different doses TERMINATED MEDICATION USAGE AGREEMENT 01/20/2015 Well adult exam 09/03/2014 Overview: NEED PAP 04/20 CT chest--poor quality diffuse septal thickening, PNA, ground glass b/l 04/20 TTE [facility]- normal EF+mod . 12/19 Cardiac cath -mod-severe CAD LAD., consider stent if angina 07/18 admitted [facility]. EEG--encephalopathy, abnormal. 2019-need restart atorv 80?. 02/23/20 PCI mid right PDA with single ROJAS [facility]. EF stable 55-60%. Lung nodules inc9mm LLL. ?infection. Consider kailyn 1mo CT. 11/14 Dr Michael LEDESMA Trazodone 100mg? Suboxone Dr Max Garcia 06/17 incarcerated 01/14 admit [facility]/Ashkan ODvs suicide attempt. 02/13 d/c to [facility] in [place]. 09/13 ICU/intubated-fungal [id number]-ofzzc-Mynpbjp dubliniensis. , hand abscess dayna albicans MED [...] as of this encounter (statuses as of 05/31/2023) Resolved Problems Problem Noted Date Diagnosed Date Resolved Date Hydronephrosis, right 12/06/20202020 Acute on chronic diastolic c ongestive heart failure 03/03/2020 08/26/2020 Major depressive disorder, r ecurrent, unspecified 12/30/2019 12/14/2021 Uncomplicated opioid dependence 06/23/2019 03/19/2022 Coronary artery disease invo lving napaimute coronary artery of napaim[place] heart without angina pectoris 06/23/2019 12/14/2021 Encounter for monitoring Sub oxone maintenance therapy 09/24/2018 12/14/2021 Polysubstance abuse 02/26/2018 03/19/20 Overview: Fall 2017 rehab [place]-[facility], etc will establish w/[facility] 02/2018 Suicide attempt by drug ingestion 02/20/2018 02/26/2018 Overview: gabapentin Seizure 09/09/2017 07/19/2020 Overview: 09/13 seizure noted. ?prior approx 5ya --placed on gabapentin Homeless 06/14/2017 11/27/2018 Tobacco abuse 04/15/2017 08/12/2017 Systolic murmur 03/04/2016 04/11/2021 Overview: 09/13 STEVEN [facility]-congential thickening Partial fusion aortica valve, trivial AI, no vegetation. 2012 TTE--mild-mod AR, ?bicuspid. 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 therapy [...] platelets elevated at 464, repeat CBC at [facility] 02/08: Repeat ultrasound is recommended [...] as of this encounter (statuses as of 05/31/2023) Immunizations Name Administration Dates Next Due COVID-19 mRNA, LNP-s, No Pre serve, 2-Dose Series (Moderna) 09/16/2020 Hepatitis B, 20+ yrs 08/26/2018,10/03/19 18,09/16/2017,12/19(Deferred: Patient Refused),03/02/2016,10/18/2014 Pneumococcal Conjugate Vacci ne, 20-valent ([id number]) 05/21/2023 Pneumococcal Polysaccharide PPV23 (Pneumovax) 11/28/2005 Seasonal Influenza, PF, 6 M & above, IM , (FluLaval or Fluzone) 05/21/2023,02/10/2021,01/18/2021(Defer red: Patient Refused),03/03/2020 TDAP (age 10 and older)(Boostrix) [...] Miscellaneous Notes * Telephone Encounter - Mike Au [facility] - 05/31/2023 9:44 AM ESTSigned Prescriptions: Disp Refills Gabapentin 300 MG Oral Capsule (Neurontin) 180 Ca*1 Sig: TAKE 2CAPS TWICE DAILY AND 3 CAPS AT BEDTIMEAuthorizing Provider: GLORIA DUBOIS * Telephone Encounter - Gloria Dubois PA-C - 05/31/2023 9:43 AM EST Signed Prescriptions: Disp Refills Gabapentin 300 MG Oral Capsule (Neurontin) 180 Ca*1 Sig: TAKE 2 CAPS TWICE DAILY AND 3 CAPS AT BEDTIME Authorizing Provider: GLORIA DUBOIS * Telephone Encounter - Valeria Ji, MED ASSIST - 05/31/2023 8:40 AM EST Pending Prescriptions: Disp Refills Gabapentin 300 MG Oral Capsule [Pharmacy M*180 Ca*1 Sig: TAKE 2 CAPS TWICE DAILY AND 3 CAPS AT BEDTIME * Telephone Encounter - Halie Brown principal process engineer - 05/30/2023 4:21 PM EST Pt is needing for tomorrow. Pt will call back to reschedule appt. Due to pt having COVID Patient is up to date for office visits. Pending Prescriptions: Disp Refills Gabapentin 300 MG Oral Capsule (Neurontin*180 Ca*1 Sig: TAKE 2 CAPS TWICE DAILY AND 3 CAPS AT BEDTIME Last Visit: 08/15/2022 (in office), Visit date not found (telemedicine) Next Visit: Visit date not found If no future appointments scheduled, and last appointment is greater than a year ago, please schedule patient for a follow-up appointment Last date the medication was ordered: 04/11/23 Pharmacy: [id number] Is this request for a controlled substance?No it is not controlled. Urine Drug Screen: Results for orders placed or performed in visit on 11/03/21 TOXICOLOGY, URINE SCREEN W/ CONFIRMATION Result Value Amphetamines Screen, U Negative Benzodiazepines Screen, U Negative Cannabinoids Screen, U Negative Cocaine Metabolite Screen, U Negative Fentanyl Screen, U Negative Hydrocodone Screen, U Negative Methadone Metabolite Screen, U Negative Morphine/Codeine Screen, U Negative Oxycodone Screen, U Negative Narrative Cutoff Concentrations: Drug Level Amphetamines [...] 11/04/2019 03:30 PM * Telephone Encounter - Kirti Paige PHARM Tech - 05/30/2023 4:16 PM EST Pt calling in for refill on med from Neuro. Transferred to specialty for assistance. Thank You, Kirti Paige, [facility] Electrical Test Engineer II [facility] ([facility]) (Formerly Telepharmacy) 05/30/2023, 4:17 PM documented in this encounter Plan of Treatment Upcoming Encounters Date Type Department Care Team (Late st Contact Info) Description 06/04/2023 9:00 AM EST Office Visit Pulmonary Medicine, [facility] [address] [facility] [place] [address] Franko Mcnair MD [address] [place] [address] 06/20/2023 11:00 AM EST Imaging Radiology [facility] 1st Floor, [place] [address] [facility] [place] [address] 11/11/2023 11:00 AM EDT Office Visit Family Practice [facility] [address] [facility] [place] [address] Irvin Iverson MD [address] [place] [address] Health Maintenance Due Date Last Done Comments Diabetic Eye Exam 11/03/2020 11/04/2019, , 01/31/2013, Additional history exists Depression Screening 03/03/2021 03/03/2020, 08/29/19 18 Diabetic Foot Exam 03/03/2021 03/03/2020, 0 09/24/2018, 09/20/2017, Additional history exists *SPIROMETRY ONCE FOR ASTHMA-ADULT 08/06/2021 DISCUSS TOBACCO CESSATION (REFER TO SMARTSET #3291) 08/04/2022 08/04/2021, 08/28/2017 COVID-19 Vaccine ( season) 2022 09/16/2020 Cologuard 2023 Colonoscopy 2023 Colorectal Cancer Screening 2023 Fecal Occult Blood Test 2023 HbA1c 2023 08/06/2022, 06/0 12/2020, 11/04/2019, Additional history exists Sigmoidoscopy 2023 GFR 06/19/2023 12/17/2022, 04/2 09/2022, 08/06/2022, Additional history exists PAP SMEAR-ANNUAL AGES 18-100 07/26/2023 07/25/2022, 09/24/2017, 07/14/2014, Additional history exists CKD HGB USE SMARTSET 50501 08/07/202308/06, 08/06/2022, 11/03/2021, Additional history exists Mammogram 08/08/2023 08/07/2022 Albumin/Creatinine Ratio 12/18/2023 023, 10/05/2020, 05/28/2019, Additional history exists CKD PHOS USE SMARTSET 84790 12/18/202311/28, 11/20/2020, 09/06/2017 DTaP,Tdap,and Td Vaccines (3 - Td or Tdap) 08/29/2027 08/28/2017, 08/28/2017, 02/10/2007 Pap Smear Discontinued 07/25/2022, 08/28, 08/28/2017, Additional history exists Influenza Vaccine (FLU shot) Completed 05/21/2023, 02/10/2021, 03/03/2020 Pneumococcal Vaccine: Pediatrics (0 to 5 Years) and At-Risk Patients (6 to 64 Years) Completed 05/21/2023, 11/28/2005 GARDASIL-HPV IMMUNIZATION SERIES Aged Out No longer [...] Advance Directives occurred with: Patient Care Teams Spreader Operator Relationship Specialty Start Date End Date Irvin Iverson MD [address] [place] [address] PCP - General Family Medicine 04/02/22 documented as of this encounter
--- OUTSIDE RECORDS SUMMARY | 2023-06-01 06:58 | External Medical Summary | Summary of Care ---
Author Name Unknown Organization [facility] Address [address] [place] [address] Phone [phone] Care Team Providers Care High School Football Coach Name Role Phone Irvin Kramer MD Primary Care Provider + Reason for Visit * Reason Onset Date Comments Medication Refill 05/27/2023 Encounter Details Date Type Department Care Team ([facility] Contact Info) Description 05/27/2023 Refill Family Practice [facility] [address] [facility] [place] [address] Irvin Kramer MD [address] [place] [address] Allergies Active Allergy Reactions Criticality Noted Date Comments Azithromycin Other (Please comment) 03/28/2004 cramps Covid-19 Mrna Vacc (Moderna) 07/24/2021 Severe SOB/ hospitalized. Eggs Or Egg-Derived Products 05/25/2022 Other reaction(s): vomiting Ensure 02/10/2007 Vomiting, diarrhea Mushroom Extract Complex Itching 12/17/2022 Mushrooms Novocain 02/15/2010 hives [place] Extract 05/25/2022 Other reaction(s): Hives Tramadol Seizure High 09/09/2012 documented as of this encounter (statuses as of 05/28/2023) Medications Medication Sig Dispensed Refills Start Date [...] ns:HTN, goal below 140/80,Coronary artery disease involving [place] heart without angina pectoris, unspecified vessel or [...] hemoglobin A1c goal of less than 8.0% ([facility]) TAKE 1 TABLET BY MOUTH [...] (Demadex)Indicatio ns:Chronic diastolic CHF (congestive heart failure) ([facility]),Coronary artery disease involving [place] coronary artery of [place] heart without angina pectoris,Nonrheuma tic aortic valve [...] EVERY DAY 90 Tablet 1 3 Active Gabapentin 300 MG Oral Capsule (Neurontin) Take 2 tablets twice daily and 3 tab at bedtime 180 Capsule 1 3 Active Cyclobenzaprine HCl 10 MG Oral Tablet (Flexeril)Indicati ons:Lumbar disc disease TAKE 1 TABLET BY MOUTH IN THE MORNING AND BEFORE BEDTIME 60 Tablet 0 4 Active Metoprolol Succinate ER 25 MG Oral Tablet Extended Release 24 Hour (toPROL XL)Indications:HTN , goal below 130/80 TAKE 1 TABLET BY MOUTH IN THE MORNING 90 Tablet 3 4 Active Famotidine 20 MG Oral Tablet (Pepcid) TAKE 1 TABLET BY MOUTH 2 TIMES A DAY NEEDED FOR HEARTBURN. 180 Tablet 3 4 Active Famotidine 20 MG Oral Tablet (Pepcid) TAKE 1 TABLET BY MOUTH 2 TIMES A DAY NEEDED FOR HEARTBURN. 180 Tablet 2 3 05/27/19 24 Discontinued(Re fill) Clopidogrel Bisulfate 75 MG Oral Tablet (pLAVix)Indication s:Coronary artery disease involving [place] heart without angina pectoris, unspecified vessel or lesion type,S/P coronary artery stent placement TAKE 1 TABLET BY MOUTH EVERY DAY 90 Tablet 1 3 05/28/19 24 Discontinued Hospital, Clinic, or Other Facility Administered Medication Ordered Dose Route Frequency Start Date End Date Status lidocaine 1 % inj 21 mgIndications:Cellulitis of arm, left,Abscess of multiple sites of upper arm 21 mg IJ Daily(AM) 09/20/2017 Active medroxyPROGESTERone acetate (DEPO-PROVERA) inj NORBERTO 150 mgIndications:Surveillance for Depo-Provera contraception 150 mg IM [id number] 09/09/2019 Active medroxyPROGESTERone (contracep) (Depo-Provera) inj 150 mgIndications:Encounter for surveillance of injectable contraceptive 150 mg IM [id number] 05/11/2023 05/05/2024 Active documented as of this encounter (statuses as of 05/28/2023) Active Problems Problem Noted Date Diagnosed Date [...] without hepatic coma 018 Overview: 09/13 dx [facility]. Genotype 1A. Confirmed 2021. New since 2015. Hx shared needles. Coronary artery disease invo lving [place] heart without angina pectoris 12/19/2016 S/P coronary artery stent placement 12/19/2016 Nonrheumatic aortic valve stenosis 11/16/2016 History of narcotic addiction 01/20/2015 Overview: OD 01/2018 with neurontin Caution with neurontin, issues getting different scrips with different doses TERMINATED MEDICATION USAGE AGREEMENT 01/20/2015 Well adult exam 09/03/2014 Overview: NEED PAP 04/20 CT chest--poor quality diffuse septal thickening, PNA, ground glass b/l 04/20 TTE [facility]- normal EF+mod . 12/19 Cardiac cath -mod-severe CAD LAD., consider stent if angina 07/18 admitted [facility]. EEG--encephalopathy, abnormal. 2019-need restart atorv 80?. 02/23/20 PCI mid right PDA with single ROJAS [facility]. EF stable 55-60%. Lung nodules inc9mm LLL. ?infection. Consider kailyn 1mo CT. 11/14 Dr Michael LEDESMA Trazodone 100mg? Suboxone Dr Max Garcia 06/17 incarcerated 01/14 admit [facility]/Ashkan ODvs suicide attempt. 02/13 d/c to [facility] in [place]. 09/13 ICU/intubated-fungal visafg-utkkq-Uyvjtpw dubliniensis. , hand abscess dayna albicans MED [...] as of this encounter (statuses as of 05/28/2023) Resolved Problems Problem Noted Date Diagnosed Date Resolved Date Hydronephrosis, right 12/06/20202020 Acute on chronic diastolic c ongestive heart failure 03/03/2020 08/26/2020 Major depressive disorder, r ecurrent, unspecified 12/30/2019 12/14/2021 Uncomplicated opioid dependence 06/23/2019 03/19/2022 Coronary artery disease invo lving [place] coronary artery of [place] heart without angina pectoris 06/23/2019 12/14/2021 Encounter for monitoring Sub oxone maintenance therapy 09/24/2018 12/14/2021 Polysubstance abuse 02/26/2018 03/19/20 22 Overview: Fall 2017 rehab [facility], etc will establish w/[facility] 02/2018 Suicide attempt [...] platelets elevated at 464, [facility] Repeat ultrasound is recommended in [...] as of this encounter (statuses as of 05/28/2023) Immunizations Name Administration Dates Next Due COVID-19 mRNA, LNP-s, No Pre serve, 2-Dose Series (Moderna) 09/16/2020 Hepatitis B, 20+ yrs 08/26/2018,10/03/19 18,09/16/2017,12/19(Deferred: Patient Refused),03/02/2016,10/18/2014 Pneumococcal Conjugate Vacci ne, 20-valent ([id number]) 05/21/2023 Pneumococcal Polysaccharide PPV23 (Pneumovax) 11/28/2005 Seasonal [...] Telephone Encounter - Irvin Kramer MD - 05/28/2023 8:56 PM ESTSigned Prescriptions: Disp Refills Famotidine 20 MG Oral Tablet (Pepcid) 180 Ta*3 Sig: TAKE 1 TABLET BY MOUTH 2 TIMES A DAY NEEDED FOR HEARTBURN. Authorizing Provider: IRVIN KRAMER * Telephone Encounter - Demetrice Gould LPN - 05/28/2023 6:21 AM ESTPending Prescriptions: Disp Refills Famotidine 20 MG Oral Tablet (Pepcid) 180 Ta*2 Sig: TAKE 1 TABLET BY MOUTH 2 TIMES A DAY NEEDED FOR HEARTBURN. * Telephone Encounter - EstradaKmShradaCHANDRIKA - 05/27/2023 7:29 PM EST Did you pend patient's preferred pharmacy and medication before forwarding?no Pharmacy: [id number] [address] [facility] Pending Prescriptions: Disp Refills Famotidine 20 MG Oral Tablet (Pepcid) 180 Ta*2 Sig: TAKE 1 TABLET BY MOUTH 2 TIMES A DAY NEEDED FOR HEARTBURN. Last Visit: 05/21/2023 (in office), 12/15/2021 (telemedicine) Next Visit: 11/11/2023 If no future appointments scheduled, and last appointment is greater than a year ago, please schedule patient for a follow-up appointment Last date the medication was ordered: 09/27/2022 90 day refill Is this request for a controlled substance?No [...] 9:00 AM EST Office Visit Pulmonary Medicine, [facility] [address] [facility] [place] [address] Franko Mcnair MD [address] [facility] [place] [address] 06/20/2023 11:00 AM EST Imaging Radiology [facility] [facility] [address] [facility] [place] [address] 11/11/2023 11:00 AM EDT Office Visit Family Practice [facility] [address] [facility] [place] [address] Irvin Kramer MD [address] [place] [address] Health Maintenance Due Date Last Done Comments [...] Additional history exists CKD HGB USE SMARTSET 84687 08/07/202308/06, 08/06/2022, 11/03/2021, Additional history exists Mammogram 08/08/2023 08/07/2022 Albumin/Creatinine Ratio 12/18/2023 023, 10/05/2020, 05/28/2019, Additional history exists CKD PHOS USE SMARTSET 04084 12/18/2023 082 04/2022, 11/20/2020, 09/06/2017 DTaP,Tdap,and Td Vaccines (3 [...] Advance Directives occurred with: Patient Care Teams 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
--- OUTSIDE RECORDS SUMMARY | 2023-06-01 06:58 | External Medical Summary | Summary of Care ---
Author Name Unknown Organization [facility] Address [address] [place] [address] Phone [phone] Care Team Providers Care Blower Insulator Name Role Phone Irvin Kramer MD Primary Care Provider + Reason for Visit * Reason Comments eRx-Medication Refill Encounter Details Date Type Department Care Team ([facility] Contact Info) Description 05/27/2023 Refill Family Practice [facility] [address] [place] [address] Irvin Kramer MD [address] [address] Coronary artery disease involving klamath heart without angina pectoris, unspecified vessel or lesion type; S/P coronary artery stent placement Allergies Active Allergy Reactions Criticality Noted Date Comments Azithromycin Other (Please comment) 03/28/2004 cramps Covid-19 Mrna Vacc (Moderna) 07/24/2021 Severe SOB/ hospitalized. Eggs Or Egg-Derived Products 05/25/2022 Other reaction(s): vomiting Ensure 02/10/2007 Vomiting, diarrhea Mushroom Extract Complex Itching 12/17/2022 Mushrooms Novocain 02/15/2010 hives [place] Extract 05/25/2022 Other reaction(s): Hives Tramadol Seizure [...] s:HTN, goal below 140/80,Coronary artery disease involving k[place] heart without angina pectoris, unspecified vessel or [...] A1c goal of less than 8.0% ([facility]) TAKE 1 TABLET BY MOUTH EVERY DAY 100 Tablet 3 3 Active Famotidine 20 MG Oral Tablet (Pepcid) TAKE 1 TABLET BY MOUTH 2 TIMES A DAY NEEDED FOR HEARTBURN. 180 Tablet 2 3 Active Acetaminophen ER 650 MG Oral [...] (Demadex)Indication s:Chronic diastolic CHF (congestive heart failure) ([facility]),Coronary artery disease involving klamath coronary artery of klamath heart without angina pectoris,Nonrheumat ic aortic valve [...] Oral Tablet (pLAVix)Indications :Coronary artery disease involving [place] heart without angina pectoris, unspecified vessel or lesion type,S/P coronary artery stent placement TAKE 1 TABLET BY MOUTH EVERY DAY 90 Tablet 1 4 Active Clopidogrel Bisulfate 75 MG Oral Tablet (pLAVix)Indications :Coronary artery disease involving k[place] heart without angina pectoris, unspecified vessel or [...] mgIndications:Surveillance for Depo-Provera contraception 150 mg IM [id number] 09/09/2019 Active medroxyPROGESTERone (contracep) (Depo-Provera) inj 150 mgIndications:Encounter for surveillance of injectable contraceptive 150 mg IM [id number] 05/11/2023 05/05/2024 Active documented as of this [...] hepatic coma 018 Overview: 09/13 dx [facility]. Genotype 1A. Confirmed 2021. New since 2015. Hx shared needles. Coronary artery disease invo lving klamath heart without angina pectoris 12/19/2016 S/P coronary artery stent placement 12/19/2016 Nonrheumatic aortic valve stenosis 11/16/2016 History of narcotic addiction 01/20/2015 Overview: OD 01/2018 with neurontin Caution with neurontin, issues getting different scrips with different doses TERMINATED MEDICATION USAGE AGREEMENT 01/20/2015 Well adult exam 09/03/2014 Overview: NEED PAP 04/20 CT chest--poor quality diffuse septal thickening, PNA, ground glass b/l 04/20 TTE [facility]- normal EF+mod . 12/19 Cardiac cath -mod-severe CAD LAD., consider stent if angina 07/18 admitted [facility]. EEG--encephalopathy, abnormal. 2019-need restart atorv 80?. 02/23/20 PCI mid right PDA with single ROJAS [facility]. EF stable 55-60%. Lung nodules inc9mm LLL. ?infection. Consider kailyn 1mo CT. 11/14 Dr Michael VERGARA Trazodone 100mg? Suboxone Dr Max Garcia 06/17 incarcerated 01/14 admit [facility]/Ashkan ODvs suicide attempt. 02/13 d/c to [facility] in [place]. 09/13 ICU/intubated-fungal [id number]-nkoot-Vthazxn dubliniensis. 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 08/07/2010 [...] platelets elevated at 464, repeat CBC [facility] 02/08: Repeat ultrasound is recommended in [...] Patient Refused),03/02/2016,10/18/2014 Pneumococcal Conjugate Vacci ne, 20-valent ([id number]) 05/21/2023 Pneumococcal Polysaccharide PPV23 (Pneumovax) 11/28/2005 Seasonal [...] Telephone Encounter - Pop Beatty RPh - 05/28/2023 4:10 PM EST Signed Prescriptions: Disp Refills Clopidogrel Bisulfate 75 MG Oral Tablet (p*90 Tab*1 Sig: TAKE 1 TABLET BY MOUTH EVERY DAYAuthorizing Provider: IRVIN KRAMER User: POP BEATTYRefused Prescriptions: Disp Refills traZODone HCl 50 MG Oral Tablet (Desyrel) 45 Tab*10 Sig: TAKE 1 AND 1/2 TABLETS BY MOUTH AT BEDTIMERefused By: POP BEATTYReasonfor Refusal: Dose needs clarificationReason for Refusal Comment: dose increased to 100mg 04/03/23--- documented in this encounter Plan of Treatment Upcoming Encounters Date Type Department Care Team (Late st Contact Info) Description 06/04/2023 9:00 AM EST Office Visit Pulmonary Medicine, [facility] [address] [facility] [place] [address] Franko Mcnair MD [address] [place] [address] 06/20/2023 11:00 AM EST Imaging Radiology [address] 132 [facility] [place] [address] 11/11/2023 11:00 AM EDT Office Visit Family Practice [facility] [address] [facility] [place] [address] Irvin Kramer MD [address] [place] [address] Health Maintenance Due Date Last Done Comments Diabetic Eye Exam 11/03/2020 11/04/2019, , 01/31/2013, Additional history exists Depression Screening 03/03/2021 03/03/2020, 08/29/19 18 Diabetic Foot Exam 03/03/2021 03/03/2020, 0 09/24/2018, 09/20/2017, Additional history exists *SPIROMETRY ONCE FOR ASTHMA-ADULT 08/06/2021 DISCUSS TOBACCO CESSATION (REFER TO SMARTSET #8565) 08/04/2022 08/04/2021, 08/28/2017 COVID-19 Vaccine ( season) 2022 09/16/2020 Cologuard 2023 Colonoscopy 2023 Colorectal Cancer Screening 2023 Fecal Occult Blood Test 2023 HbA1c 2023 08/06/2022, 06/0 12/2020, 11/04/2019, Additional history exists Sigmoidoscopy 2023 GFR 06/19/2023 12/17/2022, 042 09/2022, 08/06/2022, Additional history exists PAP SMEAR-ANNUAL AGES 18-100 07/26/2023 07/25/2022, 09/24/2017, 07/14/2014, Additional history exists CKD HGB USE SMARTSET 50671 08/07/202308/06, 08/06/2022, 11/03/2021, Additional history exists Mammogram 08/08/2023 08/07/2022 Albumin/Creatinine Ratio 12/18/2023 023, 10/05/2020, 05/28/2019, Additional history exists CKD PHOS USE SMARTSET 01244 12/18/202311/28, 11/20/2020, 09/06/2017 DTaP,Tdap,and Td Vaccines (3 [...] Visit Diagnoses Diagnosis Coronary artery disease involving klamath heart without angina pectoris, unspecified vessel or [...] Advance Directives occurred with: Patient Care Teams Blower Insulator Relationship Specialty Start Date End Date Irvin Kramer MD [address] [place] [address] PCP - General Family Medicine 04/02/22 documented as of this encounter
--- OUTSIDE RECORDS SUMMARY | 2023-06-01 06:58 | External Medical Summary | Summary of Care ---
Author Name Unknown Organization [facility] Address [address] [place] [address] Phone [phone] Care Team Providers Care Philatelic Consultant Name Role Phone Irvin Iverson MD Primary Care Provider + Reason for Visit * Reason Comments eRx-Medication Refill Encounter Details Date Type Department Care Team ([facility] Contact Info) Description 05/29/2023 Refill Family Practice [facility] [address] [facility] [place] [address] Ir[facility]on MD [address] [facility] [address] Allergies Active Allergy Reactions Criticality Noted Date Comments Azithromycin Other (Please comment) 03/28/2004 cramps Covid-19 Mrna Vacc (Moderna) 07/24/2021 Severe SOB/ hospitalized. Eggs Or Egg-Derived Products 05/25/2022 Other reaction(s): vomiting Ensure 02/10/2007 Vomiting, diarrhea Mushroom Extract Complex Itching 12/17/2022 Mushrooms Novocain 02/15/2010 hives [place] Extract 05/25/2022 Other reaction(s): Hives Tramadol Seizure High 09/09/2012 documented as of this encounter (statuses as of 05/30/2023) Medications Medication Sig Dispensed Refills Start Date [...] :HTN, goal below 140/80,Coronary artery disease involving [place] heart without angina pectoris, unspecified vessel or [...] goal of less than 8.0% ([facility]) TAKE 1 TABLET BY MOUTH EVERY DAY 100 Tablet 3 09/27/2022 Active Acetaminophen ER 650 MG Oral Tablet [...] (Demadex)Indications :Chronic diastolic CHF (congestive heart failure) ([facility]),Coronary artery disease involving [place] coronary artery of [place] heart without angina pectoris,Nonrheumati c aortic valve stenosis,HTN, goal below 140/90 Take 1 Tablet by mouth in the morning. 90 Tablet 3 03/04/2023 Active Potassium Chloride Yvonne ER 20 MEQ Oral Tablet Extended ReleaseIndications:E sha, unspecified type TAKE 1 TABLET BY MOUTH IN THE MORNING 30 Tablet 5 03/28/2023 Active traZODone HCl 100 MG Oral Tablet (Desyrel) Take 1 Tablet by mouth at bedtime. 90 Tablet 3 04/03/2023 Active Escitalopram Oxalate 20 MG Oral Tablet (Lexapro)Indications :Depression with anxiety TAKE 1 TABLET BY MOUTH EVERY DAY 90 Tablet 1 04/09/2023 Active Gabapentin 300 MG Oral Capsule (Neurontin) Take 2 tablets twice daily and 3 tab at bedtime 180 Capsule 1 04/11/2023 Active Cyclobenzaprine HCl 10 MG Oral Tablet (Flexeril)Indication s:Lumbar disc disease TAKE 1 TABLET BY MOUTH IN THE MORNING AND BEFORE BEDTIME 60 Tablet 0 05/02/2023 Active Metoprolol Succinate ER 25 MG Oral Tablet Extended Release 24 Hour (toPROL XL)Indications:HTN, goal below 130/80 TAKE 1 TABLET BY MOUTH IN THE MORNING 90 Tablet 3 05/02/2023 Active Clopidogrel Bisulfate 75 MG Oral Tablet (pLAVix)Indications: Coronary artery disease involving [place] heart without angina pectoris, unspecified vessel or lesion type,S/P coronary artery stent placement TAKE 1 TABLET BY MOUTH EVERY DAY 90 Tablet 1 05/28/2023 Active Famotidine 20 MG Oral Tablet (Pepcid) TAKE 1 TABLET BY MOUTH 2 TIMES A DAY NEEDED FOR HEARTBURN. 180 Tablet 3 05/28/2023 Active Hospital, Clinic, or Other Facility Administered Medication Ordered Dose Route Frequency Start Date End Date Status lidocaine 1 % inj 21 mgIndications:Cellulitis of arm, left,Abscess of multiple sites of upper arm 21 mg IJ Daily(AM) 09/20/2017 Active medroxyPROGESTERone acetate (DEPO-PROVERA) inj NORBERTO 150 mgIndications:Surveillance for Depo-Provera contraception 150 mg IM [id number] 09/09/2019 Active medroxyPROGESTERone (contracep) (Depo-Provera) inj 150 mgIndications:Encounter for surveillance of injectable contraceptive 150 mg IM [id number] 05/11/2023 05/05/2024 Active documented as of this encounter (statuses as of 05/30/2023) Active Problems Problem Noted Date Diagnosed Date [...] without hepatic coma 018 Overview: 09/13 dx [facility]. Genotype 1A. Confirmed 2021. New since 2015. Hx shared needles. Coronary artery disease invo lving [place] heart without angina pectoris 12/19/2016 S/P coronary artery stent placement 12/19/2016 Nonrheumatic aortic valve stenosis 11/16/2016 History of narcotic addiction 01/20/2015 Overview: OD 01/2018 with neurontin Caution with neurontin, issues getting different scrips with different doses TERMINATED MEDICATION USAGE AGREEMENT 01/20/2015 Well adult exam 09/03/2014 Overview: NEED PAP 04/20 CT chest--poor quality diffuse septal thickening, PNA, ground glass b/l 04/20 TTE [facility]- normal EF+mod . 12/19 Cardiac cath -mod-severe [...] [place] ODvs suicide attempt. 02/13 [facility] [place] 09/13 ICU/intubated-fungal [id number]-Rantfmw dubliniensis. , hand abscess dayna albicans MED [...] as of this encounter (statuses as of 05/30/2023) Resolved Problems Problem Noted Date Diagnosed Date Resolved Date Hydronephrosis, right 12/06/20202020 Acute on chronic diastolic c ongestive heart failure 03/03/2020 08/26/2020 Major depressive disorder, r ecurrent, unspecified 12/30/2019 12/14/2021 Uncomplicated opioid dependence 06/23/2019 03/19/2022 Coronary artery disease invo lving [place] coronary artery of [place] heart without angina pectoris 06/23/2019 12/14/2021 Encounter for monitoring Sub oxone maintenance therapy 09/24/2018 12/14/2021 Polysubstance abuse 02/26/2018 03/19/20 Overview: Fall 2017 rehab [facility], etc will establish w/[facility] 02/2018 Suicide attempt [...] Sciatica 03/11/2013 04/11/2021 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 03/31/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 08/07/2010 [...] platelets elevated at 464, repeat CBC at [facility] 02/08: Repeat ultrasound is recommended in [...] as of this encounter (statuses as of 05/30/2023) Immunizations Name Administration Dates Next Due COVID-19 mRNA, LNP-s, No Pre serve, 2-Dose Series (Moderna) 09/16/2020 Hepatitis B, 20+ yrs 08/26/2018,10/03/19 18,09/16/2017,12/19(Deferred: Patient Refused),03/02/2016,10/18/2014 Pneumococcal Conjugate Vacci ne, 20-valent ([id number]) 05/21/2023 Pneumococcal Polysaccharide PPV23 (Pneumovax) 11/28/2005 Seasonal [...] Notes * Telephone Encounter - Vicki Roman [facility] - 05/30/2023 7:52 AM ESTRefused Prescriptions: Disp Refills metFORMIN HCl 1000 MG Oral Tablet (Glucoph*60 Tab*10 Sig: TAKE 1 TABLET BY MOUTH TWICE DAILY IN THE MORNING AND BEFORE BEDTIME WITH FOOD *EMERGENCY REFILL*Refused By: VICKI ROMAN for Refusal: Refill Not AppropriateReason for Refusal Comment: med d/c - pt preference documented in this encounter Plan of Treatment Upcoming Encounters Date Type Department Care Team (Late st Contact Info) Description 06/04/2023 9:00 AM EST Office Visit Pulmonary Medicine, [facility] [address] [facility] [place] [address] Franko Mcnair MD [address] [place] [address] 06/20/2023 11:00 AM EST Imaging Radiology [address] [place] [address] 11/11/2023 11:00 AM EDT Office Visit Family Practice [facility] [address] [place] [address] Irvin Iverson MD [address] [place] [address] Health Maintenance Due Date Last Done Comments [...] Additional history exists CKD HGB USE SMARTSET 25901 08/07/202308/06, 08/06/2022, 11/03/2021, Additional history exists Mammogram 08/08/2023 08/07/2022 Albumin/Creatinine Ratio 12/18/2023 023, 10/05/2020, 05/28/2019, Additional history exists CKD PHOS USE SMARTSET 17371 12/18/202311/28, 11/20/2020, 09/06/2017 DTaP,Tdap,and Td Vaccines (3 [...] Advance Directives occurred with: Patient Care Teams Philatelic Consultant Relationship Specialty Start Date End Date Irvin Iverson MD [address] [place] [address] PCP - General Family Medicine 04/02/22 documented as of this encounter
--- NOTE | 2023-06-01 07:16 | Hospitalist Progress Note ---
Date of Service June 01, 2023 Assessment & Plan (1) Hypoxia: (2) COVID-19: (3) AJIT (acute kidney injury): (4) CKD (chronic kidney disease), stage III: (5) Aortic stenosis: (6) Chronic diastolic CHF (congestive heart failure): (7) Coronary artery disease: (8) Diabetes mellitus, type 2: (9) Polysubstance abuse: (10) Seizure disorder: Plan Ms. 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 #Acute on chronic respiratory failure #Nocturnal Hypoxia 3L #COVID 19 infection Recent admission 03/2023 requiring 2L on exertion, now using nocturnally and prn Worsening shortness of breath, cough, wheezing. Seen in ED on 05/28 and diagnosed with COVID-19. In the ED, hypoxic on room air at 88%, currently requiring 2 L of oxygen via nasal cannula CXR shows bilateral airspace opacities Procal0.25 Continue with IV dexamethasone 6 mg daily, declined remdesivir Pulmonary toilet with Mucinex, nebs, incentive spirometer, flutter valve #Chronic heart failure with preserved EF #Premature CAD s/p stents #Nonrheumatic aortic valve stenosis BNP 169, lower than usual presentations -Continue Metoprolol 25mg daily -Continue Atorvastatin 80mg -Continue ASA and plavix -Resume home torsemide #Seizure disorder Chronic, stable Continue Lonnieedna #Polysubstance abuse History of, Continue Suboxone #Acute on chronic RLE edema -Ordered venous Doppler #DMTII HgbA1c 5.3 03/2023; 6.0% on admission Hold metformin, utilize NovoLog per protocol while hospitalized #Moderate Persistant Asthma #Tobacco use -Continue ICS/LABA #AJIT on CKD Creatinine 1.8, mildly elevated from baseline Hold lisinopril Resume torsemide 2/2 edema Repeat am [facility] DVT PROPHYLAXIS SQ heparin Admission and Anticipated Discharge Date Admission Date: May 31, 2023 Subjective Reports feeling notably better than when admitted. States she feels as if she will be ready in am, discussed checking in given history of multiple intubations to prevent return Physical Exam Constitutional: WD/WN, vitals as above Respiratory: normal respiratory effort, lungs clear to auscultation Cardiovascular: RRR, no murmur appreciated R> L lower extremity edema Gastrointestinal (Abdomen): normal bowel sounds, soft, nontender, no hepatosplenomegaly Results & Data Results & Data Vital Signs (Past 12 Hours) Vital Signs Temp Pulse Pulse Resp BP Pulse Ox O2 Del Method 06/01/23 04:55 36.5 C 93 H 20 123/74 92 Room Air 06/01/23 03:39 78 18 92 Room Air 05/31/23 23:57 79 16 95 Room Air 05/31/23 23:45 Room Air 05/31/23 23:19 36.9 C 84 20 110/68 93 Room Air 05/31/23 22:45 93 H 05/31/23 21:10 79 05/31/23 21:03 37.1 C 78 18 120/73 94 Room Air Laboratory Results Short CBC 06/01/23 Range/Units 07:04 WBC 3.46 L (4.8-10.8) K/ul Hgb 8.1 L (12.0-16.0) g/dl Hct 26.7 L (37.0-47.0) % Plt Count 226 (130-400) K/uL [facility] 06/01/23 07:04 Sodium 137 Potassium 4.2 Chloride 106 Carbon Dioxide 21 BUN 23 Creatinine 1.56 H D Glucose 193 H Calcium 7.9 L Medications Administered Home Medications Medication Instructions Recorded Confirmed Last Taken albuterol sulfate 2.5 mg/3 mL 2.5 mg inhalation Q4 PRN 07/10/21 05/31/23 Unknown (0.083 %) solution for nebulization WHEEZE/COUGH albuterol sulfate 90 mcg/actuation 2 puff inhalation Q4 PRN cough or 07/10/21 05/31/23 Unknown aerosol inhaler wheezing atorvastatin 80 mg tablet 80 mg PO QAM 07/10/21 05/31/23 05/28/23 buspirone 15 mg tablet 15 mg PO [facility] 07/10/21 05/31/23 05/28/23 08:00 clopidogrel 75 mg tablet 75 mg PO DAILY 07/10/21 05/31/23 05/28/23 cyclobenzaprine 10 mg tablet 10 mg PO BID 07/10/21 05/31/23 05/28/23 08:00 escitalopram oxalate 20 mg tablet 20 mg PO [facility] 07/10/21 05/31/23 05/28/23 levetiracetam 500 mg tablet 500 mg PO [facility] 07/10/21 05/31/23 05/28/23 08:00 lisinopril 5 mg tablet 5 mg PO [facility] 07/10/21 05/31/23 05/28/23 metformin 1,000 mg tablet 1,000 mg PO BID 07/10/21 05/31/23 05/28/23 08:00 metoprolol succinate 25 mg 25 mg PO DAILY 07/10/21 05/31/23 05/28/23 tablet,extended release 24 hr polyethylene glycol 3350 17 gram 17 g PO DAILY PRN Constipation 07/10/21 05/31/23 05/28/23 oral powder packet (Miralax) potassium chloride 20 mEq 20 meq PO [facility] 07/10/21 05/31/23 05/28/23 tablet,extended release(part/cryst) (Klor-Con M) torsemide 20 mg tablet 20 mg PO DAILY 07/10/21 05/31/23 05/28/23 trazodone 50 mg tablet 100 mg PO HS 07/10/21 05/31/23 05/27/23 aspirin 81 mg tablet,delayed 81 mg PO DAILY 03/03/22 05/31/23 05/28/23 release famotidine 20 mg tablet 20 mg PO BID PRN Heartburn 03/03/22 05/31/23 Unknown fluticasone furoate 200 1 inh inhalation [facility] 03/03/22 05/31/23 05/28/23 mcg-vilanterol 25 mcg/dose inhalation powder (Breo Ellipta) gabapentin 300 mg capsule 600 mg PO BID@0800,1400 03/03/22 05/31/23 05/28/23 08:00 nitroglycerin 0.4 mg sublingual 0.4 mg sublingual DAILY PRN Chest 03/03/22 05/31/23 05/28/23 tablet Pain ferrous sulfate 325 mg (65 mg 325 mg PO Q2D 04/22/23 05/31/23 05/27/23 iron) tablet gabapentin 300 mg capsule 900 mg PO HS 04/22/23 05/31/23 05/27/23 meclizine 25 mg tablet 25 mg PO TID PRN Dizziness 04/22/23 05/31/23 Unknown buprenorphine 8 mg-naloxone 2 mg 1 tab sublingual DAILY 05/28/23 05/31/23 05/27/23 sublingual tablet Active Medications Generic Name Dose Route Start Last Admin Trade Name Kate PRN Reason Stop Dose Admin Albuterol 3 ml 05/31/23 21:50 06/01/23 15:24 Albut/Ipratrop 3mg/0.5mg Neb 3 Ml Vial NEB 06/30/23 21:49 3 ml Q4R WILMA Administration Protocol Aspirin 81 mg 06/01/23 09:00 06/01/23 08:09 Aspirin 81 Mg Ectab PO 07/01/23 08:59 81 mg DAILY WILMA Administration Atorvastatin Calcium 80 mg 06/01/23 09:00 06/01/23 08:08 Atorvastatin 40 Mg Tab PO 07/01/23 08:59 80 mg QAM WILMA Administration Buprenorphine/Naloxone 1 tab 05/31/23 21:50 06/01/23 09:47 Buprenorphine/Naloxone 8/2 Mg Tab SL 06/30/23 21:49 1 tab DAILY WILMA Administration Buspirone HCl 15 mg 05/31/23 21:50 06/01/23 08:09 Buspirone 15 Mg Tab PO 06/30/23 21:49 15 mg BID WILMA Administration Clopidogrel Bisulfate 75 mg 06/01/23 09:00 06/01/23 08:09 Clopidogrel Bisulfate 75 Mg Tab PO 07/01/23 08:59 75 mg DAILY WILMA Administration Cyclobenzaprine HCl 10 mg 05/31/23 21:50 06/01/23 08:09 Cyclobenzaprine Hcl 10 Mg Tab PO 06/30/23 21:49 10 mg BID WILMA Administration Escitalopram Oxalate 20 mg 06/01/23 09:00 06/01/23 08:09 Escitalopram Oxalate 20 Mg Tab PO 07/01/23 08:59 20 mg QAM WILMA Administration Fluticasone/Vilanterol 1 puffs 06/01/23 09:00 06/01/23 08:10 Fluticasone/Vilanterol 200/25mcg 14 Puffs/Inhaler INH 07/01/23 08:59 1 puffs QAM WILMA Administration Gabapentin 900 mg 05/31/23 21:50 05/31/23 22:22 Gabapentin 300 Mg Cap PO 06/30/23 21:49 900 mg HS WILMA Administration Gabapentin 600 mg 06/01/23 08:00 06/01/23 13:29 Gabapentin 600 Mg Tab PO 07/01/23 07:59 600 mg BID@0800,1400 WILMA Administration Guaifenesin 1,200 mg 05/31/23 21:50 06/01/23 08:08 Guaifenesin 600 Mg Tabcr PO 06/30/23 21:49 1,200 mg Q12 WILMA Administration Heparin Sodium (Porcine) 5,000 units 05/31/23 22:00 06/01/23 13:29 Heparin Sod 5,000 Unit/0.5 Ml Vial SQ 06/30/23 21:59 5,000 units Q8 WILMA Administration Dexamethasone 6 mg/ Syringe 1.5 mls @ 1 mls/min 06/01/23 09:00 06/01/23 09:47 IV 06/11/23 08:59 1 mls/min Q24H WILMA Administration Insulin Aspart 0 units 06/01/23 07:00 06/01/23 13:02 Insulin Aspart Per Unit Charge SC 07/01/23 06:59 6 units ACHS WILMA Administration Insulin Human NPH 25 units 06/01/23 09:00 06/01/23 09:41 Insulin Human Nph SC 07/01/23 08:59 25 units DAILY WILMA Administration Levetiracetam 500 mg 05/31/23 21:50 06/01/23 08:09 Levetiracetam 500 Mg Tab PO 06/30/23 21:49 500 mg BID WILMA Administration Metoprolol Succinate 25 mg 06/01/23 09:00 06/01/23 08:09 Metoprolol Succ 25mg Ext Rel Tab PO 07/01/23 08:59 25 mg DAILY WILMA Administration Trazodone HCl 100 mg 05/31/23 21:50 05/31/23 22:25 Trazodone Hcl 100 Mg Tab PO 06/30/23 21:49 100 mg HS WILMA Administration (8) Diabetes mellitus, type 2 Diabetes mellitus complication status: with unspecified complications 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
[2023-06-01 07:35] LABS: Hematocrit (blood only) 26.7 % (37.0-47.0); Hemoglobin 8.1 g/dl (12.0-16.0); Mean Corpuscular Hemoglobin 25.6 pg (25.0-34.0); Mean Corpuscular Hgb Conc 30.3 g/dL (32.0-36.0); Mean Corpuscular Volume 84.5 fL (80.0-100.0); Mean Platelet Volume 10.7 fL (9.4-12.4); Platelet Count 226 K/uL (130-400); RDW Coefficient of Variation 17.4 % (11.5-14.5); RDW Standard Deviation 54.2 fL (36.4-46.3); Red Blood Count 3.16 M/uL (4.20-5.40); White Blood Count 3.46 K/ul (4.8-10.8)
[2023-06-01 07:45] LABS: BUN Creatinine Ratio 14.7 (10-20); Calcium 7.9 mg/dl (8.6-10.3); Creatinine Clr Calc Pharmacy 45.7 ml/min; Est GFR (Non-African American) 39.7 ml/min; Potassium 4.2 mmol/L (3.5-5.1)
[2023-06-01] MEDS: GABAPENTIN 600 MG TAB PO SCH (08:07)
[2023-06-01] MEDS: ATORVASTATIN 40 MG TAB PO SCH (08:08)
[2023-06-01] MEDS: METOPROLOL SUCC 25MG EXT REL TAB PO SCH (08:09)
[2023-06-01] MEDS: ESCITALOPRAM OXALATE 20 MG TAB PO SCH (08:09)
[2023-06-01] MEDS: ASPIRIN 81 MG ECTAB PO SCH (08:09)
[2023-06-01] MEDS: CLOPIDOGREL BISULFATE 75 MG TAB PO SCH (08:09)
[2023-06-01] MEDS: FLUTICASONE/VILANTEROL 200/25MCG 14 PUFFS/INHALER INH SCH (08:10)
[2023-06-01 08:34] LABS: Estimated Average Glucose 126 mg/dl
[2023-06-01] MEDS: INSULIN HUMAN NPH SC SCH (09:41)
[2023-06-01] MEDS: dexAMETHasone 6 MG in SYRINGE 0 ML IV SCH (09:47)
--- NOTE | 2023-06-01 14:18 | Pharmacy Report ---
Pharmacy Glycemic Short Note 2 - Date of Service June 01, 2023 - Glycemic Short BSG Results (Last 24 hours): 05/31/23 05/31/23 05/31/23 22:17 23:02 23:40 Glucose POC Glucose 410 H* 385 H* 327 H* 05/31/23 06/01/23 06/01/23 Unknown 00:56 03:39 Glucose 84 POC Glucose 334 H* 240 H 06/01/23 06/01/23 06/01/23 07:04 08:44 12:31 Glucose 193 H POC Glucose 180 H 221 H OUTPATIENT ANTIDIABETIC REGIMEN: * metformin 1 gm bid ASSESSMENT: * 43 year old female admitted with hypoxia/COVID. Steroids started on admission. Pharmacy consulted to assist with glycemic management. Will start NPH 0.3 units/kg SQ daily with iv dexamethasone and stress 3 novolog PLAN FOR INPATIENT GLYCEMIC CONTROL: * Hold outpatient oral diabetes medications * Basal insulin * NPH 25 units daily * Bolus insulin * NovoLog per scale ACHS or Q6hrs while NPO * Goal Range: Low 110 mg/dL - High 140 mg/dL * Correction Factor: 15 mg/dL/unit * Nutritional / Prandial insulin per carb ratio of 1 unit per 7 grams CHO consumed
[2023-06-01] MEDS: TORSEMIDE 10 MG TAB PO SCH (17:50)
--- NOTE | 2023-06-01 22:22 | Electrocardiogram Report ---
Test Reason : Blood Pressure : / mmHG Vent. Rate : 080 BPM Atrial Rate : 080 BPM P-R Int : 144 ms QRS Dur : 082 ms QT Int : 408 ms P-R-T Axes : 021 039 038 degrees QTc Int : 470 ms Normal sinus rhythm Nonspecific ST abnormality Abnormal ECG When compared with ECG of 28-MAY-2023 16:09, Nonspecific T wave abnormality no longer evident in Anterolateral leads Confirmed by Mohit Girard ([id number]) on 06/01/2023 10:22:03 PM Referred By: Confirmed By:Mohit Girard
--- NOTE | 2023-06-02 07:11 | Ultrasound Report ---
US venous doppler LE RT HISTORY: 43 years-old Female unilateral edema acute pain and swelling right lower leg COMPARISON: None TECHNIQUE: Multiple real-time sonographic images of the right lower extremity deep venous structures were obtained assessing grayscale appearance, color and spectral flow. FINDINGS: Normal flow, compressibility, phasicity and augmentation. Subcutaneous edema. IMPRESSION: No sonographic evidence of deep venous thrombosis. ACT 112: Negative or not required by law. The above report was generated using voice recognition software. It may contain grammatical, syntax o r spelling errors. Electronically signed by: Federico Eli M.D. 06/02/2023 7:08 AM
[2023-06-02 09:07] LABS: Hemoglobin 8.6 g/dl (12.0-16.0); Mean Corpuscular Hemoglobin 25.7 pg (25.0-34.0); Mean Corpuscular Hgb Conc 30.7 g/dL (32.0-36.0); Mean Corpuscular Volume 83.8 fL (80.0-100.0); Mean Platelet Volume 10.7 fL (9.4-12.4); Platelet Count 242 K/uL (130-400); RDW Coefficient of Variation 17.3 % (11.5-14.5); RDW Standard Deviation 53.1 fL (36.4-46.3); Red Blood Count 3.34 M/uL (4.20-5.40); White Blood Count 7.03 K/ul (4.8-10.8)
[2023-06-02 09:27] LABS: BUN Creatinine Ratio 18.6 (10-20); Calcium 8.5 mg/dl (8.6-10.3); Creatinine Clr Calc Pharmacy 45.7 ml/min; Est GFR (Non-African American) 39.7 ml/min; Potassium 4.5 mmol/L (3.5-5.1)
[2023-06-02] MEDS: FERROUS SULFATE 325 MG TAB PO SCH (09:47)
[2023-06-02] MEDS: lisinopril 5 MG TAB PO ONE (09:49)
[2023-06-02] MEDS: NYSTATIN SUSP 500,000 U/5 ML UDC PO SCH (09:49)
[2023-06-02] MEDS: dexAMETHasone 6 MG in SYRINGE 0 ML PO SCH (09:50)
[2023-06-02] MEDS: PANTOprazole 40 MG TAB PO SCH (09:50)
--- NOTE | 2023-06-02 15:39 | Discharge Summary ---
Discharge Summary Date of Service June 02, 2023 Notes For Next Care Provider Medication Changes From Visit -Dexamethasone 6mg daily for COVID infection/hypoxia -Nystatin given concerns for developing thrush Admission HPI Per Admitting Provider 42 year old female with PMH DM type II, diabetic peripheral neuropathy, chronic hypoxic respiratory failure on 3L oxygen, dyslipidemia, asthma, chronic diastolic heart failure, history of possible tricuspid valve endocarditis, HTN, aortic stenosis, premature CAD 10/2016 receiving ROJAS to the ramus intermedius and distal circumflex for NTEMI, s/p PCI with ROJAS to the RCA PDA on 02/23/20, chronic hepatitis C, history of polysubstance abuse on Suboxone, medical non compliance, and other problems listed below who presents to the ED for evaluation of shortness of breath. History obtained from the patient and review of outpatient PCP records. Patient reports that 4 days ago, she developed shortness of breath and chest congestion. Seen in the ED on 05/28 and diagnosed with COVID-19. Patient was discharged home. She reports progressive worsening shortness of breath, wheezing, cough. Cough is not productive for thick, yellow sputum. Patient has oxygen at home that she wears 3 L on a as needed basis. Reports increased use of oxygen over the past few days. She reports running intermittent fevers, last time she checked her temperature was yesterday and it was 102. She reports having bodyaches and chills. Has mild chronic lower extremity edema which is unchanged from baseline. She denies chest pain. No lightheadedness, dizziness, diaphoresis, syncopal events. She denies abdominal pain, nausea, vomiting, diarrhea. No urinary symptoms. In the ED, patient was hypoxic on room air at 88%, currently requiring 2 L of oxygen via nasal cannula. Labs show creatinine 1.8, mildly elevated from baseline. Hgb 8.0 which is at baseline. CXR shows bilateral airspace opacities. She was given nebulizer treatment, IV dexamethasone 10 mg, IVF. Admission Exam Per Admitting Provider Constitutional: WD/WN, vitals as above no acute distress Eyes: PERRL, conjunctivae normal, anicteric sclerae ENMT: external ear and nose normal, oropharynx normal Respiratory: normal respiratory effort; no respiratory distress Auscultation: + diminished lung sounds rhonci and expiratory wheezing noted in the anterior lung christina Cardiovascular: Rate/Rhythm: regular rate and regular rhythm Heart Sounds: + murmur (Grade 3/6, systolic) Vessels: normal peripheral pulses Extremities: + edema (Trace edema BLE) Gastrointestinal (Abdomen): normal bowel sounds, soft, nontender, no hepatosplenomegaly Musculoskeletal: no cyanosis or clubbing, extremities motor strength 5/5 Skin: no rashes, warm and dry Neurologic: PERRL, EOMI, accommodation nl, no face palsy, no dysarthria Psychiatric: A+Ox3, euthymic affect Principal Dx & Hospital Course #1 = Principal Diagnosis (1) Hypoxia: (2) COVID-19: (3) AJIT (acute kidney injury): (4) CKD (chronic kidney disease), stage III: (5) Aortic stenosis: (6) Chronic diastolic CHF (congestive heart failure): (7) Coronary artery disease: (8) Diabetes mellitus, type 2: (9) Polysubstance abuse: (10) Seizure disorder: Plan Ms. 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 Patient experienced notable improvement on IV dexamethasone and did not require oxygen at rest. Patient did not experience fevers, no leukocytosis, no other infectious symptoms. Patient noted concerns for thrush given erythema on gums, similar to prior episodes. Counseled patient on proper inhaler use and supplied nystatin. On day of discharge, patient eager to leave given Pulmonary appointment on Saturday. Given clinical stability, discharged with dexamethsone x 7 days to complete 10 days course, as well as nystatin swish and spit. Patient denied cough/chest pain, palpitations, SOB or other acute concerns. #Acute on chronic respiratory failure *resolved #Nocturnal Hypoxia 3L #COVID 19 infection Recent admission 03/2023 requiring 2L on exertion, now using nocturnally and prn Worsening shortness of breath, cough, wheezing. Seen in ED on 05/28 and diagnosed with COVID-19. In the ED, hypoxic on room air at 88%, currently requiring 2 L of oxygen via nasal cannula CXR shows bilateral airspace opacities Procal0.25 Transitioned from IV dex to PO dex for 10 day course Continue home symptomatic treatment, follow up with pulm 06/03 #Chronic heart failure with preserved EF #Premature CAD s/p stents #Nonrheumatic aortic valve stenosis BNP 169, lower than usual presentations -Continue Metoprolol 25mg daily -Continue Atorvastatin 80mg -Continue ASA and plavix -Continue home torsemide #Seizure disorder Chronic, stable Continue Keppra #Polysubstance abuse History of, Continue Suboxone #Acute on chronic RLE edema *stable -Ordered venous Doppler: negative DVT, improved with resumption of torsemide #DMTII HgbA1c 5.3 03/2023; 6.0% on admission Resume home regimen #Moderate Persistant Asthma #Tobacco use -Continue ICS/LABA, inhaler education provided #AJIT on CKD *resolved Creatinine 1.8, mildly elevated from baseline Resume lisinopril Resume torsemide 2/2 edema Discharge Exam Constitutional WD/WN, vitals as above ENMT erythema along gumline ridge Respiratory normal respiratory effort, lungs clear to auscultation Cardiovascular RRR, no murmur, no edema Gastrointestinal (Abdomen) normal bowel sounds, soft, nontender, no hepatosplenomegaly Updated Medication List Medication Instructions Recorded Confirmed Type albuterol sulfate 2.5 mg/3 mL 2.5 mg inhalation Q4 PRN 07/10/21 05/31/23 History (0.083 %) solution for nebulization WHEEZE/COUGH albuterol sulfate 90 mcg/actuation 2 puff inhalation Q4 PRN cough or 07/10/21 05/31/23 History aerosol inhaler wheezing atorvastatin 80 mg tablet 80 mg PO QAM 07/10/21 05/31/23 History buspirone 15 mg tablet 15 mg PO AMHS 07/10/21 05/31/23 History clopidogrel 75 mg tablet 75 mg PO DAILY 07/10/21 05/31/23 History cyclobenzaprine 10 mg tablet 10 mg PO BID 07/10/21 05/31/23 History escitalopram oxalate 20 mg tablet 20 mg PO QAM 07/10/21 05/31/23 History levetiracetam 500 mg tablet 500 mg PO AMHS 07/10/21 05/31/23 History lisinopril 5 mg tablet 5 mg PO QAM 07/10/21 05/31/23 History metformin 1,000 mg tablet 1,000 mg PO BID 07/10/21 05/31/23 History metoprolol succinate 25 mg 25 mg PO DAILY 07/10/21 05/31/23 History tablet,extended release 24 hr polyethylene glycol 3350 17 gram 17 g PO DAILY PRN Constipation 07/10/21 05/31/23 History oral powder packet (Miralax) potassium chloride 20 mEq 20 meq PO QAM 07/10/21 05/31/23 History tablet,extended release(part/cryst) (Klor-Con M) torsemide 20 mg tablet 20 mg PO DAILY 07/10/21 05/31/23 History trazodone 50 mg tablet 100 mg PO HS 07/10/21 05/31/23 History aspirin 81 mg tablet,delayed 81 mg PO DAILY 03/03/22 05/31/23 History release famotidine 20 mg tablet 20 mg PO BID PRN Heartburn 03/03/22 05/31/23 History fluticasone furoate 200 1 inh inhalation QAM 03/03/22 05/31/23 History mcg-vilanterol 25 mcg/dose inhalation powder (Breo Ellipta) gabapentin 300 mg capsule 600 mg PO BID@0800,1400 03/03/22 05/31/23 History nitroglycerin 0.4 mg sublingual 0.4 mg sublingual DAILY PRN Chest 03/03/22 05/31/23 History tablet Pain ferrous sulfate 325 mg (65 mg 325 mg PO Q2D 04/22/23 05/31/23 History iron) tablet gabapentin 300 mg capsule 900 mg PO HS 04/22/23 05/31/23 History meclizine 25 mg tablet 25 mg PO TID PRN Dizziness 04/22/23 05/31/23 History buprenorphine 8 mg-naloxone 2 mg 1 tab sublingual DAILY 05/28/23 05/31/23 History sublingual tablet dexamethasone 6 mg tablet 6 mg PO DAILY #7 tabs 06/02/23 Rx nystatin 100,000 unit/mL oral 5 ml PO QID 7 days #140 mL 06/02/23 Rx suspension Hospital Stay Data Consultations 05/31/23 17:37 ED Decision to Admit Stat Diagnostic Imagining Performed 06/01/23 16:42 US venous doppler LE RT Routine Pending Results Patient Have Any Pending Studies at Discharge: No Discharge Instructions Given to Patient (Per Discharging Provider) You were admitted for shortness of breath with COVID infection. You were treated with IV steroids and experienced notable improvement. You will complete 7 more days of dexamethasone by mouth--your next dose is tomorrow 06/03/2023. You noted some gum/mouth pain consistent with prior thrush episodes, and noted to have some redness. A prescription was sent to your pharmacy for nystatin to use 4 times a day, swish and spit for 7 days. Please ensure that you rinse and spit with water at least after using your inhalers. Please resume all other medications as prescribed. Please continue to use your oxygen when needed and while sleeping Total Time Total Time Spent Total Time Spent (In Minutes): 45
== END 2023-06-02 11:55 | disposition home or self-care (01) | DRG 178 ==
LOC: ED 14:49 → SUATTDRO 17:42 → 2N 17:42

== ENCOUNTER 2023-09-18 12:15 | Inpatient (IN) ==
[2023-09-18 13:15] LABS: Basophils # (auto) 0.08 K/uL (0.00-0.20); Basophils % (auto) 0.6 %; Eosinophils # (auto) 0.52 K/uL (0.00-0.50); Eosinophils % (auto) 4.1 %; Hematocrit (blood only) 26.4 % (37.0-47.0); Hemoglobin 8.1 g/dl (12.0-16.0); Immature Granulocytes # (auto) 0.09 K/uL (0.01-0.20); Immature Granulocytes % (auto) 0.7 %; Lymphocytes % (auto) 28.2 %; Mean Corpuscular Hemoglobin 23.4 pg (25.0-34.0); Mean Corpuscular Hgb Conc 30.7 g/dL (32.0-36.0); Mean Corpuscular Volume 76.3 fL (80.0-100.0); Monocytes # (auto) 0.73 K/uL (0.11-0.59); Monocytes % (auto) 5.7 %; Neutrophils # (auto) 7.74 K/uL (1.40-6.50); Neutrophils % (auto) 60.7 %; Platelet Count 393 K/uL (130-400); RDW Coefficient of Variation 19.7 % (11.5-14.5); RDW Standard Deviation 53.7 fL (36.4-46.3); Red Blood Count 3.46 M/uL (4.20-5.40); White Blood Count 12.76 K/ul (4.8-10.8)
--- NOTE | 2023-09-18 13:23 | Emergency Department Note ---
Impression & Plan Diabetic infection of left foot, Acute osteomyelitis of toe of left foot ED Provider Note Provider: Kojo Sauceda MD DATE OF SERVICE: 09/18/2023 CHIEF COMPLAINT: Left foot infection HISTORY OF PRESENT ILLNESS: Patient is a 43-year-old diabetic history of CKD and DVT on aspirin and Plavix presenting referred from podiatry for wound on her left fourth toe. Has been following in wound clinic. On ciprofloxacin recently although states he gives a little bit of heartburn. Concern for osteomyelitis developing in the foot and podiatry recommended admission to the hospital. Called by podiatry office today and referred here supposed to see them in person tomorrow. Has had increased pain here over the past month. On Suboxone and reports he has been using "a bunch "of Advil. Denies issue in the right lower extremity. Denies significant pain in the left leg isolated left foot region. PAST MEDICAL HISTORY: As noted above MEDICATIONS: Reviewed home medications SOCIAL HISTORY: Smoker PHYSICAL EXAM: GENERAL: alert and oriented in no acute distress playing on cell phone in wheelchair Head: normocephalic and atraumatic EYES: No injection, discharge or icterus. NECK: Trachea midline. Supple. ENT: Mucous membranes pink and moist. LUNGS: Airway patent. No retractions or tachypnea HEART: Regular rate and rhythm. No chest wall tenderness ABDOMEN: Soft and non-tender, without guarding or rebound. SKIN: Acyanotic, warm, dry EXTREMITIES: Without swelling, tenderness or deformity except with erythema and chronic wound noted to the left fourth toe mildly tender. No significant tenderness over the left foot or crepitus appreciated. NEUROLOGICAL:No aphasia. No facial droop or slurred speech. Patient's laboratory studies and imaging reviewed. Differential includes Foreign body, fracture, dislocation, joint compromise, infection, soft tissue injury, tendon injury, vascular compromise, compartment syndrome, as well as other pathologies. IMPRESSION/MEDICAL DECISION MAKING: Wound record noted. Reviewed prior microbiology with pharmacist. Will place on Zosyn which she is tolerated before as well as vancomycin at least 1 dose. Diabetic smoker with a foot wound. Concerns for deeper infection. Podiatry evaluated in office today and recommended admission and inpatient consultation of them. Inflammatory markers were sent and x-ray obtained. X-ray concerning for possible osteomyelitic changes to the left fourth toe. Mild leukocytosis of 12 noted today with stable mild anemia. CKD noted we will try to avoid NSAIDs. Difficult situation for pain control given Suboxone use but given some dose of morphine. Will bring into the hospital for further care. Hospitalist contacted. DIAGNOSIS: Diabetic left foot infection with left fourth toe osteomyelitis DISPOSITION: Hospitalist will evaluate Patient was agreeable with this plan. Past Med/Surg History Problem List Acute osteomyelitis of toe of left foot (Acute) Diabetic infection of left foot (Acute) Peripheral neuropathy Venous ulcer of left leg (Acute) Pain of left calf Diabetic foot ulcer (Acute) Abnormal ankle brachial index (GIOVANNI) Anemia (Acute) Pneumonia due to severe acute respiratory syndrome coronavirus 2 (SARS-CoV-2) (Acute) CKD (chronic kidney disease), stage III Hypoxia (Acute) COVID-19 (Acute) AJIT (acute kidney injury) Seizure disorder Polysubstance abuse Chronic diastolic CHF (congestive heart failure) HLD (hyperlipidemia) HTN (hypertension) Aortic stenosis Cannabis abuse Opiate abuse, continuous Bicuspid aortic valve Aortic stenosis Aortic regurgitation Depression (Chronic) GERD (gastroesophageal reflux disease) (Chronic) Coronary artery disease (Chronic) Premature atherosclerotic coronary disease s/p 2-vessel coronary intervention 10/2016 receiving ROJAS to the ramus intermedius and distal circumflex for NTEMI, Repeat catheterization 02/23/2020, s/p PCI with ROJAS to the RCA PDA on 02/23/20 Diabetes mellitus, type 2 (Chronic) Hypertension (Chronic) History of renal calculi (Chronic) Asthma (Chronic) History of DVT (deep vein thrombosis) (Chronic) Hepatosplenomegaly (Chronic) Status post cholecystectomy (Chronic) Medical History AJIT (acute kidney injury) Methamphetamine abuse Anemia, iron deficiency History of drug abuse Hepatitis C "Antibiotic screen positive, quantitative RNA positive 08/30/17" Surgical History S/P coronary artery stent placement History of cardiac cath 2016- 1 ROJAS to ramus, 2 ROJAS to L circumflex. 40-50% plaque to LAD 2018- distal disease (80%) within PDA Family History Other Diabetes Heart disease Hypertension Kidney stones Seizures Social History Smoking Status: Current every day smoker Tobacco Type: Cigarettes Cigarettes Per Day: 10; Second Hand Exposure: Yes; Do You Dip or Chew Tobacco: No; Hx Alcohol Use: Yes Alcohol type: beer, wine and hard liquor Hx Substance Use: Yes Non-Prescribed Medications: Heroin, IV Drugs and Methamphetamines Last Used Substance: Unknown Substance Use Type Other:: 3 years drug free per record Preferred Language: Macedonian Communication Ability: Effective Visual Impairment: No Limitations Hearing Ability: Normal Boarding Mother Required: No Beliefs That Will Affect Care: None marital status: Single Current Living Situation: Significant Other Current Living Situation Comment: Unknown due to pt condition How many Children do You have: 1 Feels Safe at Home: Yes Assistive Devices: Oxygen - Continuous and Walker Allergies Allergies Allergy/AdvReac Type Severity Reaction Status Date / Time lidocaine Allergy Intermediate HIVES Verified 09/18/23 15:04 procaine Allergy Intermediate HIVES Verified 09/18/23 15:04 strawberry Allergy Intermediate HIVES Verified 09/18/23 15:04 Penicillins Allergy Mild HAD NO Verified 09/18/23 15:04 PROBLEM WITH ZOSYN mushroom Allergy Unknown Unknown Verified 09/18/23 15:04 onion Allergy Unknown Unknown Verified 09/18/23 15:04 COVID-19 (SARS-CoV-2) AdvReac Severe stopped Verified 09/18/23 15:04 vaccine, zoraida breathing next day cephalexin AdvReac Intermediate YEAST Verified 09/18/23 15:04 INFECTIONS tramadol AdvReac Intermediate SEIZURES Verified 09/18/23 15:04 azithromycin AdvReac Mild STOMACH Verified 09/18/23 15:04 PAIN Home Meds Home Medications Medication Instructions Recorded Confirmed albuterol sulfate 2.5 mg/3 mL 2.5 mg inhalation Q4 PRN 07/10/21 09/18/23 (0.083 %) solution for nebulization WHEEZE/COUGH albuterol sulfate 90 mcg/actuation 2 puff inhalation Q4 PRN cough or 07/10/21 09/18/23 aerosol inhaler wheezing atorvastatin 80 mg tablet 80 mg PO QAM 07/10/21 09/18/23 buspirone 15 mg tablet 15 mg PO AMHS 07/10/21 09/18/23 clopidogrel 75 mg tablet 75 mg PO DAILY 07/10/21 09/18/23 cyclobenzaprine 10 mg tablet 10 mg PO BID 07/10/21 09/18/23 levetiracetam 500 mg tablet 500 mg PO AMHS 07/10/21 09/18/23 lisinopril 5 mg tablet 5 mg PO QAM 07/10/21 09/18/23 metformin 1,000 mg tablet 1,000 mg PO BID 07/10/21 09/18/23 metoprolol succinate 25 mg 25 mg PO DAILY 07/10/21 09/18/23 tablet,extended release 24 hr polyethylene glycol 3350 17 gram 17 g PO DAILY PRN Constipation 07/10/21 09/18/23 oral powder packet (Miralax) potassium chloride 20 mEq 20 meq PO QAM 07/10/21 09/18/23 tablet,extended release(part/cryst) (Klor-Con M) torsemide 20 mg tablet 20 mg PO DAILY 07/10/21 09/18/23 trazodone 50 mg tablet 100 mg PO HS 07/10/21 09/18/23 aspirin 81 mg tablet,delayed 81 mg PO DAILY 03/03/22 09/18/23 release famotidine 20 mg tablet 20 mg PO BID PRN Heartburn 03/03/22 09/18/23 fluticasone furoate 200 1 inh inhalation QA 03/03/22 09/18/23 mcg-vilanterol 25 mcg/dose inhalation powder (Breo Ellipta) gabapentin 300 mg capsule 600 mg PO BID@0800,1400 03/03/22 09/18/23 nitroglycerin 0.4 mg sublingual 0.4 mg sublingual DAILY PRN Chest 03/03/22 09/18/23 tablet Pain ferrous sulfate 325 mg (65 mg 325 mg PO Q2D 04/22/23 09/18/23 iron) tablet gabapentin 300 mg capsule 900 mg PO HS 04/22/23 09/18/23 meclizine 25 mg tablet 25 mg PO TID PRN Dizziness 04/22/23 09/18/23 buprenorphine 8 mg-naloxone 2 mg 1 tab sublingual DAILY 05/28/23 09/18/23 sublingual tablet escitalopram oxalate 20 mg tablet 30 mg PO QAM 08/19/23 09/18/23 Previous Rx's Medication Instructions Recorded dexamethasone 6 mg tablet 6 mg PO DAILY #7 tabs 06/02/23 collagenase clostridium histo. 250 1 applic topical DAILY #30 grams 09/09/23 unit/gram topical ointment (Santyl) ciprofloxacin HCl 500 mg tablet 500 mg PO BID 14 days #28 tabs 09/11/23 Results & Data (ED) Vital Signs Vital Signs - 24 hr 09/18/23 12:23 Temperature 36.7 C Temperature Source Temporal Artery Scan Pulse Rate 96 H Respiratory Rate 18 Respiratory Effort / Characteristics Non-Labored Spontaneous Respiratory Depth Normal Blood Pressure 108/68 Blood Pressure Mean 81 Blood Pressure Position Sitting Pulse Oximetry 99 Oxygen Delivery Method Room Air Sepsis Recent Fever Within 48 Hours No Sepsis New/Unexplained Change in Mental Status No Sepsis Action Taken by Nursing No Action Required Laboratory Data 09/18/23 12:48 09/18/23 12:48 Lab Results 09/18/23 Range/Units 12:48 WBC 12.76 H (4.8-10.8) K/ul RBC 3.46 L (4.20-5.40) M/uL Hgb 8.1 L (12.0-16.0) g/dl Hct 26.4 L (37.0-47.0) % MCV 76.3 L (80.0-100.0) fL MCH 23.4 L (25.0-34.0) pg MCHC 30.7 L (32.0-36.0) g/dL RDW Std Deviation 53.7 H (36.4-46.3) fL RDW Coeff of Hannah 19.7 H (11.5-14.5) % Plt Count 393 (130-400) K/uL MPV 10.0 (9.4-12.4) fL Immature Gran % (Auto) 0.7 % Neut % (Auto) 60.7 % Lymph % (Auto) 28.2 % [place] % (Auto) 5.7 % Eos % (Auto) 4.1 % Baso % (Auto) 0.6 % Neut # (Auto) 7.74 H (1.40-6.50) K/uL Lymph # (Auto) 3.60 H (1.20-3.40) K/uL [place] # (Auto) 0.73 H (0.11-0.59) K/uL Eos # (Auto) 0.52 H (0.00-0.50) K/uL Baso # (Auto) 0.08 (0.00-0.20) K/uL Immature Gran # (Auto) 0.09 (0.01-0.20) K/uL ESR 71 H (0-20) mm/hr Sodium 134 L (136-145) mmol/L Potassium 3.8 (3.5-5.1) mmol/L Chloride 106 (98-107) mmol/L Carbon Dioxide 19 L (21-32) mmol/L Anion Gap 9 (3-11) BUN 14 (6-23) mg/dl Creatinine 1.63 H (0.6-1.2) mg/dl Est Cr Clr Drug Dosing 45.5 ml/min Est GFR ( Amer) 43.6 ml/min Est GFR (Non-Af Amer) 37.7 ml/min BUN/Creatinine Ratio 8.6 L (10-20) Glucose 111 H (70-99(Fasting)) mg/dl Calcium 8.7 (8.6-10.3) mg/dl Total Bilirubin 0.2 (0.2-1.0) mg/dl AST 15 (13-39) U/L ALT 11 (7-52) U/L Alkaline Phosphatase 93 (34-104) U/L C-Reactive Protein 1.89 H (0-0.5) mg/dl Total Protein 7.0 (6.0-8.3) gm/dl Albumin 3.4 (3.4-5.0) gm/dl Globulin 3.6 (2.5-4.0) gm/dl Albumin/Globulin Ratio 0.9 (0.9-2) Procalcitonin 0.04 (0-0.5) ng/ml Imaging Data Radiologist's Impression: Foot X-Ray 09/18/23 12:27 XR foot LT min 3V routine CLINICAL HISTORY: pain TECHNIQUE: 3 views of the left foot were obtained. Comparison: Comparison is made to foot radiographs 09/04/2023 FINDINGS: There is erosion of the distal phalanx of the fourth digit with a few bony fragments noted at the tip. The joint spaces are well preserved. Soft tissue swelling is seen in the fourth digit. IMPRESSION: Findings concerning for osteomyelitis of the fourth digit distal phalanx with prominent bony erosion. ACT 112: Negative or not required by law. Electronically signed by: Moi Ring M.D. 09/18/2023 1:47 PM Discharge Plan Visit Data Chief Complaint: Infection, Wound Stated Complaint: TOE ON RT FOOT, WOUND CENTER SENT ED Provider: Kojo Sauceda Discharge Problem: Diabetic infection of left foot, Acute osteomyelitis of toe of left foot Patient Disposition: Admitted As Inpatient Discharge Instructions Interventions: ED Discharge Assessment Last Done: 09/18/23 15:02 Forms Stand Alone Forms: [facility] [employer] Prescriptions Prescriptions: No Action Santyl 250 unit/gram ointment 1 applic topical DAILY Qty: 30 0RF Rx Instructions: apply to wound daily ciprofloxacin HCl 500 mg tablet 500 mg PO BID 14 Days Qty: 28 0RF Rx Instructions: ORDERED 09/11/23, DID NOT START UNTIL 09/16/23 FOR 14 DAYS aspirin 81 mg Tablet,Delayed Release (Dr/Ec) 81 mg PO DAILY famotidine 20 mg Tablet 20 mg PO BID PRN (Reason: Heartburn) nitroglycerin 0.4 mg Tablet, Sublingual 0.4 mg sublingual DAILY PRN (Reason: Chest Pain) gabapentin 300 mg capsule 600 mg PO BID@0800,1400 fluticasone furoate-vilanterol [Breo Ellipta] 200-25 mcg/dose Blister With Device 1 inh INHALATION QAM meclizine 25 mg tablet 25 mg PO TID PRN (Reason: Dizziness) ferrous sulfate 325 mg (65 mg iron) tablet 325 mg PO Q2D gabapentin 300 mg Capsule 900 mg PO HS cyclobenzaprine 10 mg tablet 10 mg PO BID atorvastatin 80 mg tablet 80 mg PO QAM torsemide 20 mg tablet 20 mg PO DAILY Hold Instructions: Resume on 12/18/22. Please check with primary care physician prior to resuming this. albuterol sulfate 2.5 mg /3 mL (0.083 %) solution for nebulization 2.5 mg inhalation Q4 PRN (Reason: WHEEZE/COUGH) trazodone 50 mg tablet 100 mg PO HS polyethylene glycol 3350 [Miralax] 17 gram Powder In Packet 17 g PO DAILY PRN (Reason: Constipation) levetiracetam 500 mg tablet 500 mg PO AMHS clopidogrel 75 mg tablet 75 mg PO DAILY potassium chloride [Klor-Con M20] 20 mEq tablet,ER particles/crystals 20 meq PO QAM metformin 1,000 mg tablet 1,000 mg PO BID Hold Instructions: Resume on 12/18/22. Please check with primary care physician prior to resuming. lisinopril 5 mg tablet 5 mg PO QAM metoprolol succinate 25 mg tablet extended release 24 hr 25 mg PO DAILY albuterol sulfate 90 mcg/actuation HFA aerosol inhaler 2 puff INHALATION Q4 PRN (Reason: cough or wheezing) buspirone 15 mg Tablet 15 mg PO AMHS escitalopram oxalate 20 mg tablet 30 mg PO QAM buprenorphine-naloxone 8-2 mg tablet, sublingual 1 tab SUBLINGUAL DAILY dexamethasone 6 mg tablet 6 mg PO DAILY Qty: 7 0RF Referrals Referrals: Irvin Iverson MD [Primary Care Provider] -
[2023-09-18 13:33] LABS: Albumin Globulin Ratio 0.9 (0.9-2); Albumin Level 3.4 gm/dl (3.4-5.0); BUN Creatinine Ratio 8.6 (10-20); Bilirubin,Total 0.2 mg/dl (0.2-1.0); C Reactive Protein 1.89 mg/dl (0-0.5); Calcium 8.7 mg/dl (8.6-10.3); Creatinine Clr Calc Pharmacy 45.5 ml/min; Est GFR (African American) 43.6 ml/min; Est GFR (Non-African American) 37.7 ml/min; Globulin 3.6 gm/dl (2.5-4.0); Potassium 3.8 mmol/L (3.5-5.1)
--- NOTE | 2023-09-18 13:48 | XRay Report ---
XR foot LT min 3V routine CLINICAL HISTORY: pain TECHNIQUE: 3 views of the left foot were obtained. Comparison: Comparison is made to foot radiographs 09/04/2023 FINDINGS: There is erosion of the distal phalanx of the fourth digit with a few bony fragments noted at the tip . The joint spaces are well preserved. Soft tissue swelling is seen in the fourth digit. IMPRESSION: Findings concerning for osteomyelitis of the fourth digit distal phalanx with prominent bony erosion. ACT 112: Negative or not required by law. Electronically signed by: Moi Ring M.D. 09/18/2023 1:47 PM
[2023-09-18] MEDS ORDERED: VANCOMYCIN CONSULT ACTIVE PRN (13:52)
--- NOTE | 2023-09-18 14:38 | History & Physical Report ---
Date of Service September 18, 2023 Assessment & Plan (1) Diabetic infection of left foot: (2) Peripheral neuropathy: (3) AJIT (acute kidney injury): (4) Polysubstance abuse: (5) HTN (hypertension): (6) HLD (hyperlipidemia): (7) Coronary artery disease: (8) Diabetes mellitus, type 2: (9) Hypertension: (10) History of DVT (deep vein thrombosis): (11) CKD (chronic kidney disease), stage III: (12) Diabetic foot ulcer: (13) History of seizure: Plan Ms. Gonzalez is a 43 year old female that presented to the ED as recommended by her python java developer. She has been being followed as an outpatient for a 4th toe wound infection through the wound clinic as well. Her wound has been dressed with Aquacel Ag. She was started on Ciprofloxacin on 09/17. Her original injury to her toe occurred in July 2023 and has been worsening since. An MRI was scheduled for September/2023 to evaluate for osteomyelitis and she was referred to Dr. Boyd for surgical consultation which was to take place tomorrow 09/18. Additionally patient was to have arterial venous studies done on 10/03/2023. Additional past medical history includes DVT, dfy-mxrembr-cvpegskxv diabetes, CKD, meth use, history of IVDA (last use 6 years ago), hepatitis C, h/o seizures (On Keppra). Her last seizure was a few years ago. She takes Keppra compliantly. Left foot x-ray: Findings concerning for osteomyelitis of the fourth digit distal phalanx with prominent bony erosion. Leukocytosis 12.76, AJIT creatinine 1.63, elevated CRP 1.89, lactate is pending. Patient was started on Zosyn plus Vanco and ED which we will switch to daptomycin given her AJIT. Foot x-ray left indicates findings concerning for osteomyelitis of the fourth distal phalanx with prominent bony erosion. Patient will be admitted for further evaluation of her left toe infection that meets SIRS criteria with IV fluids, WOCN, Podiatry consult, blood cultures, continued IV abx including Zosyn + Daptomycin, hold statin. Sepsis secondary to diabetic infection of left 4th toe: Peripheral neuropathy: Foot x-ray left foot concerning of osteomyelitis fourth digit proximal bony erosion. IV Zosyn started in ED; continue for now and adjust based on wound culture and blood culture results Vancomycin given in ED; will change to Dapto given AJIT Follows wound clinic outpatient continue while inpatient here Foot x-ray : Findings concerning for osteomyelitis of the fourth digit distal phalanx with prominent bony erosion. Takes gabapentin; continue Podiatry consult placed Lactate 1.1 blood cultures ordered CKD: Chronic serum creatinine 1.63; baseline 1.57-1.90 HTN: Chronic Takes lisinopril; continue CAD: Chronic Status post two-vessel ROJAS placed 10/2016 Takes aspirin plus Plavix; continue Dxe-rqxyvxu-xgjrzttau diabetic: Chronic Takes metformin; hold 1 patient placed on SSI ACHS Recheck A1c in the morning COPD: Chronic Takes Breo-Ellipta;continue History of DVT: Chronic Years ago not on any anticoagulation History of IVDA: Chronic Reports last use 6 years ago Takes Suboxone; continue Depression: Chronic Takes Lexapro; continue Disposition: PCP: Dr. Iverson CODE STATUS: Full code VTE prophylaxis: Lovenox subcu I spent a total of 87 minutes coordinating, documenting, and providing care for this patient excluding time spent in the performance of separately billed services. All of the aforementioned completed while collaborating with the assigned attending physician for a full treatment plan. Please see their addendum for further details. History of Present Illness Chief Complaint: poorly healing toe ulcer Primary Care Provider: Irvin Iverson MD Ms. Gonzalez is a 43 year old female that presented to the ED as recommended by her python java developer. She has been being followed as an outpatient for a 4th toe wound infection through the wound clinic as well. Her wound has been dressed with Aquacel Ag. She was started on Ciprofloxacin on 09/17. Her original injury to her toe occurred in July 2023 and has been worsening since. An MRI was scheduled for September/2023 to evaluate for osteomyelitis and she was referred to Dr. Boyd for surgical consultation which was to take place tomorrow 09/18. Additionally patient was to have arterial venous studies done on 10/03/2023. Additional past medical history includes DVT, jxm-lplijam-xnwcegjfo diabetes, CKD, meth use, history of IVDA (last use 6 years ago), hepatitis C, h/o seizures (On Keppra). Her last seizure was a few years ago. She takes Keppra compliantly. Left foot c-ray: Findings concerning for osteomyelitis of the fourth digit distal phalanx with prominent bony erosion. Leukocytosis 12.76, AJIT creatinine 1.63, elevated CRP 1.89, lactate is pending. Patient was started on Zosyn plus Vanco and ED which we will switch to daptomycin given her AJIT. Foot x-ray left indicates findings concerning for osteomyelitis of the fourth distal phalanx with prominent bony erosion. Patient will be admitted for further evaluation of her left toe infection that meets SIRS criteria with IV fluids, WOCN, Podiatry consult, blood cultures, continued IV abx including Zosyn + Daptomycin, hold statin. Allergies Allergy/AdvReac Type Severity Reaction Status Date / Time lidocaine Allergy Intermediate HIVES Verified 09/18/23 15:04 procaine Allergy Intermediate HIVES Verified 09/18/23 15:04 strawberry Allergy Intermediate HIVES Verified 09/18/23 15:04 Penicillins Allergy Mild HAD NO Verified 09/18/23 15:04 PROBLEM WITH ZOSYN mushroom Allergy Unknown Unknown Verified 09/18/23 15:04 onion Allergy Unknown Unknown Verified 09/18/23 15:04 COVID-19 (SARS-CoV-2) AdvReac Severe stopped Verified 09/18/23 15:04 vaccine, zoraida breathing next day cephalexin AdvReac Intermediate YEAST Verified 09/18/23 15:04 INFECTIONS tramadol AdvReac Intermediate SEIZURES Verified 09/18/23 15:04 azithromycin AdvReac Mild STOMACH Verified 09/18/23 15:04 PAIN Home Medications Medication Instructions Recorded Confirmed Type albuterol sulfate 2.5 mg/3 mL 2.5 mg inhalation Q4 PRN 07/10/21 09/18/23 History (0.083 %) solution for nebulization WHEEZE/COUGH albuterol sulfate 90 mcg/actuation 2 puff inhalation Q4 PRN cough or 07/10/21 09/18/23 History aerosol inhaler wheezing atorvastatin 80 mg tablet 80 mg PO QAM 07/10/21 09/18/23 History buspirone 15 mg tablet 15 mg PO AMHS 07/10/21 09/18/23 History clopidogrel 75 mg tablet 75 mg PO DAILY 07/10/21 09/18/23 History cyclobenzaprine 10 mg tablet 10 mg PO BID 07/10/21 09/18/23 History levetiracetam 500 mg tablet 500 mg PO AMHS 07/10/21 09/18/23 History lisinopril 5 mg tablet 5 mg PO QAM 07/10/21 09/18/23 History metformin 1,000 mg tablet 1,000 mg PO BID 07/10/21 09/18/23 History metoprolol succinate 25 mg 25 mg PO DAILY 07/10/21 09/18/23 History tablet,extended release 24 hr polyethylene glycol 3350 17 gram 17 g PO DAILY PRN Constipation 07/10/21 09/18/23 History oral powder packet (Miralax) potassium chloride 20 mEq 20 meq PO QAM 07/10/21 09/18/23 History tablet,extended release(part/cryst) (Klor-Con M) torsemide 20 mg tablet 20 mg PO DAILY 07/10/21 09/18/23 History trazodone 50 mg tablet 100 mg PO HS 07/10/21 09/18/23 History aspirin 81 mg tablet,delayed 81 mg PO DAILY 03/03/22 09/18/23 History release famotidine 20 mg tablet 20 mg PO BID PRN Heartburn 03/03/22 09/18/23 History fluticasone furoate 200 1 inh inhalation QAM 03/03/22 09/18/23 History mcg-vilanterol 25 mcg/dose inhalation powder (Breo Ellipta) gabapentin 300 mg capsule 600 mg PO BID@0800,1400 03/03/22 09/18/23 History nitroglycerin 0.4 mg sublingual 0.4 mg sublingual DAILY PRN Chest 03/03/22 09/18/23 History tablet Pain ferrous sulfate 325 mg (65 mg 325 mg PO Q2D 04/22/23 09/18/23 History iron) tablet gabapentin 300 mg capsule 900 mg PO HS 04/22/23 09/18/23 History meclizine 25 mg tablet 25 mg PO TID PRN Dizziness 04/22/23 09/18/23 History buprenorphine 8 mg-naloxone 2 mg 1 tab sublingual DAILY 05/28/23 09/18/23 History sublingual tablet dexamethasone 6 mg tablet 6 mg PO DAILY #7 tabs 06/02/23 09/18/23 Rx escitalopram oxalate 20 mg tablet 20 mg PO QAM 08/19/23 09/18/23 History collagenase clostridium histo. 250 1 applic topical DAILY #30 grams 09/09/23 09/18/23 Rx unit/gram topical ointment (Santyl) ciprofloxacin HCl 500 mg tablet 500 mg PO BID 14 days #28 tabs 09/11/23 09/18/23 Rx Past Med/Surg History Problem List History of seizure Acute osteomyelitis of toe of left foot (Acute) Diabetic infection of left foot (Acute) Peripheral neuropathy Venous ulcer of left leg (Acute) Pain of left calf Diabetic foot ulcer (Acute) Abnormal ankle brachial index (GIOVANNI) Anemia (Acute) Pneumonia due to severe acute respiratory syndrome coronavirus 2 (SARS-CoV-2) (Acute) CKD (chronic kidney disease), stage III Hypoxia (Acute) COVID-19 (Acute) AJIT (acute kidney injury) Seizure disorder Polysubstance abuse Chronic diastolic CHF (congestive heart failure) HLD (hyperlipidemia) HTN (hypertension) Aortic stenosis Cannabis abuse Opiate abuse, continuous Bicuspid aortic valve Aortic stenosis Aortic regurgitation Depression (Chronic) GERD (gastroesophageal reflux disease) (Chronic) Coronary artery disease (Chronic) Premature atherosclerotic coronary disease s/p 2-vessel coronary int ervention 10/2016 receiving ROJAS to the ramus intermedius and distal circumflex for NTEMI, Repeat catheterization 02/23/2020, s/p PCI with ROJAS to the RCA PDA on 02/23/20 Diabetes mellitus, type 2 (Chronic) Hypertension (Chronic) History of renal calculi (Chronic) Asthma (Chronic) History of DVT (deep vein thrombosis) (Chronic) Hepatosplenomegaly (Chronic) Status post cholecystectomy (Chronic) Medical History AJIT (acute kidney injury) Methamphetamine abuse Anemia, iron deficiency History of drug abuse Hepatitis C "Antibiotic screen positive, quantitative RNA positive 08/30/17" Surgical History S/P coronary artery stent placement History of cardiac cath 2016- 1 ROJAS to ramus, 2 ROJAS to L circumflex. 40-50% plaque to LAD 2018- distal disease (80%) within PDA Family History Other Diabetes Heart disease Hypertension Kidney stones Seizures Social History Smoking Status: Current every day smoker Tobacco Type: Cigarettes Cigarettes Per Day: 10; Second Hand Exposure: Yes; Do You Dip or Chew Tobacco: No; Hx Alcohol Use: No Hx Substance Use: Yes (hx in remission. subutex.) Non-Prescribed Medications: Heroin, IV Drugs and Methamphetamines Last Used Substance: Unknown Substance Use Type Other:: 3 years drug free per record Preferred Language: Slovenian Communication Ability: Effective Visual Impairment: No Limitations Hearing Ability: Normal Education Dean Required: No Beliefs That Will Affect Care: None marital status: Single Current Living Situation: Alone Current Living Situation Comment: home don How many Children do You have: 1 Other Information That Helps Us Care for You: No Feels Safe at Home: Yes Safety Concerns: Feels Safe At This Time Assistive Devices: None Review of Systems Review of Systems: Neuro: (-) Falls, trauma, slurred speech HEENT: (-) SUTTON, dizziness, dysphagia, visual or auditory changes CV: (-) CP, palpitations, swelling Resp: (-) SOB GI: (-) appetite changes, N/V/D, bowel changes : (-) urinary changes Skin: (-) rashes (+) open area on dorsal plantar aspect of left 4th toe. Psych: (-) anxiety, depression Physical Exam Physical Exam: Neuro: AAOx4, PERRLA, no aphagia, memory changes, CNII-XII grossly intact HEENT: head normocephalic, moist mucus membranes CV: S1/S2, (+) M (-) G/R, (-) edema, cap refill < 3 seconds Resp: Lungs CTA in all christina. On RA GI: Abdomen S/NT/ND, Ax4 bowel sounds, (-) CVA tenderness Musculoskeletal: 5/5 B/L UE strength, 5/5 B/L LE strength. No gait disturbance Skin: (-) rashes , (-) erythema. L distal plantar arterial ulcer dime-sized. (+) neuropathy 2/3 up calf. (-) malodor. (+) green/yellow drainage. Numerous arterial ulcers on both legs. Psych: euthymic mood Results & Data Results & Data Vital Signs (Past 12 Hours) Vital Signs Temp Pulse Resp BP Pulse Ox O2 Del Method 09/18/23 12:23 36.7 C 96 H 18 108/68 99 Room Air Laboratory Results Short CBC 09/18/23 Range/Units 12:48 WBC 12.76 H (4.8-10.8) K/ul Hgb 8.1 L (12.0-16.0) g/dl Hct 26.4 L (37.0-47.0) % Plt Count 393 (130-400) K/uL BMP 09/18/23 12:48 Sodium 134 L Potassium 3.8 Chloride 106 Carbon Dioxide 19 L BUN 14 Creatinine 1.63 H Glucose 111 H Calcium 8.7 Liver Function 09/18/23 Range/Units 12:48 Total Bilirubin 0.2 (0.2-1.0) mg/dl AST 15 (13-39) U/L ALT 11 (7-52) U/L Alkaline Phosphatase 93 (34-104) U/L Albumin 3.4 (3.4-5.0) gm/dl Diagnostic Findings Foot X-Ray 09/18/23 12:27 XR foot LT min 3V routine CLINICAL HISTORY: pain TECHNIQUE: 3 views of the left foot were obtained. Comparison: Comparison is made to foot radiographs 09/04/2023 FINDINGS: There is erosion of the distal phalanx of the fourth digit with a few bony fragments noted at the tip. The joint spaces are well preserved. Soft tissue swelling is seen in the fourth digit. IMPRESSION: Findings concerning for osteomyelitis of the fourth digit distal phalanx with prominent bony erosion. ACT 112: Negative or not required by law. Electronically signed by: Moi Ring M.D. 09/18/2023 1:47 PM Code Status & VTE Plan Code Status Full Code in the event of cardiac or respiratory arrest VTE Prophylaxis Plan VTE Prophylaxis will be ordered: Yes Supervising Physician Co-Signing Physician Notes Patient is a 43-year-old female with history of diabetes mellitus, drug abuse, CKD stage III, diastolic CHF and other medical problems presents to ED on recommendation by her python java developer for further evaluation of left fourth toe wound infection. She was recently prescribed ciprofloxacin. Patient states having significant toe pain and also noted some discharge with no foul smell. Please review HPI for complete details of presentation. Blood work suggestive of sepsis with elevated leukocytosis, CRP. Normal procalcitonin and lactate levels. Blood cultures obtained. History of Pseudomonas, Klebsiella noted. Foot x-ray showed findings concerning for osteomyelitis of the fourth distal distal phalanx. Physical Exam: Vitals signs as noted above General Appearance:Obese, no apparent distress Head: normocephalic, Atraumatic Eyes: normal inspection, EOMI Neck: supple, Trachea midline Respiratory/Chest: Normal breath sounds, CTA, No accessory muscle use Cardiovascular: S1, S2, + murmur Abdomen/GI:Soft, Non tender, Bowel sounds present Extremities/Musculoskeletal:normal inspection, 1+ edema, left distal toe ulcer, decreased foot sensation, discharge noted. Neurologic/Psych:AAOX3, grossly no focal neurological deficits Skin: normal color, warm Sepsis Left fourth toe osteomyelitis Left foot cellulitis Agree with broad-spectrum antibiotics Dapto, Zosyn Hold statin while on Dapto Blood cultures obtained Consulted podiatry IV fluids Pain control I personally interviewed and examined at bedside. Patient's care is coordinated with Ana FINCH. I have reviewed the advanced practitioner's documentation, and I agree with plan of care. Please refer to the documentation above for details of patient's presentation and for discussion of other issues. I spent a total of26 minutes coordinating, documenting, and providing care for this patient excluding time spent in the performance of separately billed services. (8) Diabetes mellitus, type 2 Diabetes mellitus complication status: with unspecified complications Diabetes mellitus detention insulin use: without detention use Qualified Code(s): E11.8 - Type 2 diabetes mellitus with unspecified complications (11) Diabetic foot ulcer Diabetes mellitus type: type 2 Diabetic foot ulcer location: toe Laterality: unspecified laterality Non-pressure ulcer stage: with fat layer exposed Qualified Code(s): E11.621 - Type 2 diabetes mellitus with foot ulcer; L97.502 - Non-pressure chronic ulcer of other part of unspecified foot with fat layer exposed
[2023-09-18] MEDS: MoRPHine SULFATE 4 MG/ML 1 ML CARP\\VIAL IV STA (15:21)
[2023-09-18] MEDS: PIPERACILLIN/TAZOBACTAM 4.5 GM/100 ML BAG IV ONE (15:51)
[2023-09-18] MEDS: SODIUM CHLORIDE 0.9% 1,000 ML IV SCH (15:53)
[2023-09-18] MEDS: DAPTOmycin 400 MG in SYRINGE 0 ML IV SCH ×2 (16:27→16:35)
[2023-09-18] MEDS: VANCOMYCIN HCL 1,750 MG in SODIUM CHLORIDE 0.9% 500 ML IV ONE (16:27)
[2023-09-18] MEDS: MoRPHine SULFATE 2 MG/ML CARP IV PRN (17:53)
[2023-09-18] MEDS ORDERED: CARBOHYDRATES FOR HYPOGLYCEMIA PO PRN (19:37)
[2023-09-18] MEDS ORDERED: GLUCOSE 10 TAB/TUBE PO PRN (19:37)
[2023-09-18] MEDS ORDERED: GLUCOSE 40% GEL 15 GM TUBE PO PRN (19:37)
[2023-09-18] MEDS ORDERED: GLUCAGON FOR INJ 1 MG VIAL SQ PRN (19:37)
[2023-09-18] MEDS ORDERED: DEXTROSE 50% 50 ML SYRINGE IV PRN (19:37)
[2023-09-18] MEDS: INSULIN ASPART PER UNIT CHARGE SC SCH (20:32)
[2023-09-18] MEDS: busPIRone 15 MG TAB PO SCH (20:34)
[2023-09-18] MEDS: GABAPENTIN 300 MG CAP PO SCH (20:35)
[2023-09-18] MEDS: CYCLOBENZAPRINE HCL 10 MG TAB PO SCH (20:35)
[2023-09-18] MEDS: traZODone HCL 100 MG TAB PO SCH (20:37)
[2023-09-18] MEDS: PIPERACILLIN/TAZOBACTAM 4.5 GM in DEXTROSE 5% MINI-B 100 ML IV SCH (20:37)
[2023-09-18] MEDS: levETIRAcetam 500 MG TAB PO SCH (20:37)
[2023-09-18] MEDS: HEPARIN SOD 5,000 UNIT/0.5 ML VIAL SQ SCH (21:18)
--- NOTE | 2023-09-19 07:30 | Ultrasound Report ---
US arterial duplex LE LT CLINICAL HISTORY: Nonhealing wound/Osteomyelitis TECHNIQUE: Real-time grayscale and color and spectral Doppler ultrasound imaging of the left lower ex tremity arteries was performed. Measurements calculated based on NASCET criteria. COMPARISON: None available at the time of this dictation. FINDINGS: LEFT: Common femoral artery: Triphasic waveforms. Peak systolic velocity (PSV) 322 cm/s. Deep femoral artery: Monophasic waveforms. PSV 119 cm/s. Superficial femoral artery: Monophasic waveforms. PSV 320 cm/s. Popliteal artery: Monophasic waveforms. PSV 99 cm/s. Anterior tibial artery: Monophasic waveforms. PSV 188 cm/s. Posterior tibial artery: Monophasic waveforms. PSV 58 cm/s. Peroneal artery: Monophasic waveforms. PSV 46 cm/s. Dorsalis pedis: Monophasic waveforms. PSV 66 cm/s. Shadowing plaques are seen throughout the left lower extremity, limiting evaluation. Multiple sites o f increased velocity are seen. IMPRESSION: Multiple foci of increased velocity and monophasic waveforms, compatible with hemodynamically signifi cant vascular disease. ACT 112: Negative or not required by law. Electronically signed by: Moi Ring M.D. 09/19/2023 7:28 AM
[2023-09-19] MEDS: lisinopril 5 MG TAB PO SCH (08:05)
[2023-09-19] MEDS: POTASSIUM CHLORIDE CRTAB 20 MEQ TABCR PO SCH (08:05)
[2023-09-19] MEDS: METOPROLOL SUCC 25MG EXT REL TAB PO SCH (08:05)
[2023-09-19] MEDS: ESCITALOPRAM OXALATE 20 MG TAB PO SCH (08:05)
[2023-09-19] MEDS: FLUTICASONE/VILANTEROL 200/25MCG 14 PUFFS/INHALER INH SCH (08:05)
[2023-09-19] MEDS: CLOPIDOGREL BISULFATE 75 MG TAB PO SCH (08:06)
[2023-09-19] MEDS: ASPIRIN 81 MG ECTAB PO SCH (08:06)
[2023-09-19] MEDS: GABAPENTIN 300 MG CAP PO SCH (08:06)
[2023-09-19] MEDS: FERROUS SULFATE 325 MG TAB PO SCH (08:08)
[2023-09-19 08:09] LABS: Basophils # (auto) 0.09 K/uL (0.00-0.20); Basophils % (auto) 0.9 %; Eosinophils # (auto) 0.38 K/uL (0.00-0.50); Eosinophils % (auto) 3.9 %; Hematocrit (blood only) 25.5 % (37.0-47.0); Hemoglobin 7.7 g/dl (12.0-16.0); Immature Granulocytes # (auto) 0.07 K/uL (0.01-0.20); Immature Granulocytes % (auto) 0.7 %; Lymphocytes # (auto) 2.42 K/uL (1.20-3.40); Lymphocytes % (auto) 24.7 %; Mean Corpuscular Hemoglobin 23.1 pg (25.0-34.0); Mean Corpuscular Hgb Conc 30.2 g/dL (32.0-36.0); Mean Corpuscular Volume 76.3 fL (80.0-100.0); Mean Platelet Volume 9.8 fL (9.4-12.4); Monocytes # (auto) 0.59 K/uL (0.11-0.59); Neutrophils # (auto) 6.25 K/uL (1.40-6.50); Neutrophils % (auto) 63.8 %; Platelet Count 351 K/uL (130-400); RDW Coefficient of Variation 19.8 % (11.5-14.5); RDW Standard Deviation 54.6 fL (36.4-46.3); Red Blood Count 3.34 M/uL (4.20-5.40)
[2023-09-19] MEDS: BUPRENORPHINE/NALOXONE 8/2 MG TAB SL SCH (08:14)
[2023-09-19 08:30] LABS: BUN Creatinine Ratio 9.6 (10-20); Calcium 8.6 mg/dl (8.6-10.3); Creatinine Clr Calc Pharmacy 47.1 ml/min; Est GFR (African American) 45.7 ml/min; Est GFR (Non-African American) 39.4 ml/min; Magnesium 1.9 mg/dl (1.7-2.4); Potassium 4.7 mmol/L (3.5-5.1)
[2023-09-19 08:42] LABS: Hypochromasia Present
[2023-09-19] MEDS ORDERED: MEROPENEM 1,000 MG in 0.9 % SODIUM CHLORIDE 60 ML IV SCH (10:30)
[2023-09-19] MEDS: MEROPENEM 500 MG in SYRINGE 0 ML IV SCH ×2 (11:48→20:06)
--- OUTSIDE RECORDS SUMMARY | 2023-09-19 12:46 | External Medical Summary | Summary of Care ---
Author Name Unknown Organization [facility] Address [address] [place] [address] Phone [phone] Care Team Providers Care Grout Machine Tender Name Role Phone Irvin Iverson MD Primary Care Provider + Reason for Visit * Reason Onset Date Comments Fax 09/06/2023 Encounter Details Date Type Department Care Team (Late st Contact Info) Description 09/06/2023 Telephone Family Practice [facility] [address] [facility] [place] [address] Irvin Iverson MD [address] [place] [address] Fax Allergies Active Allergy Reactions Criticality Noted Date Comments Azithromycin Other (Please comment) 03/28/2004 cramps Covid-19 Mrna Vacc (Moderna) 07/24/2021 Severe SOB/ hospitalized. Egg-Derived Products 05/25/2022 Other reaction(s): vomiting Ensure 02/10/2007 Vomiting, diarrhea Mushroom Extract Complex Itching 12/17/2022 Mushrooms Novocain 02/15/2010 hives [place] Extract 05/25/2022 Other reaction(s): Hives Tramadol Seizure High 09/09/2012 documented as of this encounter (statuses as of 09/10/2023) Medications Medication Sig Dispensed Refills Start Date End Date Status Nitroglycerin 0.4 MG Sublingual Tablet Sublingual (Nitrostat) Place 1 Tab under the tongue every 5 minutes as needed for Pain, Chest. Max dose 3 tablets in 15 minutes 25 Tab 3 03/16/2020 Active Buprenorphine HCl-Naloxone HCl 8-2 MG Sublingual [...] all sleep. 1 Each 0 09/28/2021 Active ProAir HFA 108 (90 Base) MCG/ACT [...] EVERY DAY 100 Tablet 3 09/27/2022 Active Meclizine HCl 25 MG Oral Tablet (Antivert)Indicatio ns:Vertigo Take 1 Tablet by mouth 3 times a day as needed for Dizziness. 90 Tablet 3 12/17/2022 Active levETIRAcetam 500 MG Oral Tablet (Keppra) TAKE ONE (1) TABLET BY MOUTH TWICE DAILY IN THE MORNING AND BEFORE BEDTIME 60 Tablet 11 03/03/2023 Active Metoprolol Succinate ER 25 MG Oral Tablet Extended Release 24 Hour (toPROL XL)Indications:HTN, goal below 130/80 TAKE 1 TABLET BY MOUTH IN THE MORNING 90 Tablet 3 05/02/2023 Active Famotidine 20 MG Oral Tablet (Pepcid) TAKE 1 TABLET BY MOUTH 2 TIMES A DAY NEEDED FOR HEARTBURN. 180 Tablet 3 05/28/2023 Active Cyclobenzaprine HCl 10 MG Oral Tablet (Flexeril)Indicatio ns:Lumbar disc disease TAKE 1 TABLET BY MOUTH IN THE MORNING AND BEFORE BEDTIME 60 Tablet 5 06/03/2023 Active Acetaminophen ER 650 MG Oral Tablet Extended Release (Tylenol 8 Hour) Take 1 Tablet by mouth every 8 hours as needed for Pain, Moderate. 90 Tablet 0 07/10/2023 Active Escitalopram Oxalate 10 MG Oral Tablet (Lexapro)Indication s:KELLY (generalized anxiety disorder) TAKE 1 TABLET BY MOUTH EVERY MORNING 90 Tablet 3 07/25/2023 Active Gabapentin 300 MG Oral Capsule (Neurontin) TAKE 2 CAPS TWICE DAILY AND 3 CAPS AT BEDTIME 180 Capsule 1 08/05/2023 Active Clopidogrel Bisulfate 75 MG Oral Tablet (pLAVix)Indications :Coronary artery disease involving comanche heart without angina pectoris, unspecified vessel or lesion type,S/P coronary artery stent placement TAKE 1 TABLET BY MOUTH EVERY DAY 90 Tablet 0 08/05/2023 Active Atorvastatin Calcium 80 MG Oral Tablet (Lipitor)Indication s:Coronary artery disease involving com[place] heart without angina pectoris, unspecified vessel or lesion type,HTN, goal below 140/80,Nonrheumatic aortic valve stenosis,Dyslipidem ia, goal LDL below 100 TAKE 1 TABLET BY MOUTH EVERY DAY IN THE MORNING 90 Tablet 0 08/05/2023 Active Torsemide 20 MG Oral Tablet (Demadex)Indication s:Chronic diastolic CHF (congestive heart failure) (HCC),Coronary artery disease involving comanche coronary artery of comanche heart without angina pectoris,Nonrheumat ic aortic valve stenosis,HTN, goal below 140/90 Take 2 Tablets by mouth in the morning. Take 2 tabs in AM. 60 Tablet 3 08/13/2023 Active Potassium Chloride Yvonne ER 20 MEQ Oral Tablet Extended ReleaseIndications: Edema, unspecified type Take 1 Tablet by mouth in the morning. 90 Tablet 3 08/13/2023 Active busPIRone HCl 15 MG Oral Tablet (Buspar) TAKE ONE (1) TABLET BY MOUTH TWICE DAILY IN THE MORNING AND BEFORE BEDTIME 60 Tablet 10 08/26/2023 Active Lisinopril 5 MG Oral Tablet (Prinivil)Indicatio ns:HTN, goal below 130/80 TAKE 1 TABLET BY MOUTH IN THE MORNING 90 Tablet 2 08/24/2023 Active Escitalopram Oxalate 20 MG Oral Tablet (Lexapro)Indication s:Depression with anxiety TAKE 1 TABLET BY MOUTH EVERY MORNING 30 Tablet 10 08/28/2023 Active Ferrous Sulfate 325 (65 Fe) MG Oral Tablet (Feosol)Indications :Iron deficiency anemia, unspecified iron deficiency anemia type Take 1 Tablet by mouth every other day. 45 Tablet 3 08/29/2023 Active traZODone HCl 100 MG Oral Tablet (Desyrel) Take 1 Tablet by mouth at bedtime. 90 Tablet 0 08/29/2023 Active B-12 1000 MCG Oral TabletIndications:B 12 deficiency Take 1,000 mcg by mouth in the morning. 90 Tablet 3 09/01/2023 Active Vitamin D3 50 MCG (1999 UT) Oral CapsuleIndications: Vitamin D deficiency Take 1 Capsule by mouth in the morning. 90 Capsule 3 09/01/2023 Active Hospital, Clinic, or Other Facility Administered Medication Ordered Dose Route Frequency Start Date End Date Status medroxyPROGESTERone (contracep) (Depo-Provera) inj 150 mgIndications:Encounter for surveillance of injectable contraceptive 150 mg IM [id number] 05/11/2023 05/05/2024 Active documented as of this encounter (statuses as of 09/10/2023) Active Problems Problem Noted Date Diagnosed Date B12 deficiency 09/01/2023 Diabetic ulcer of toe of lef t foot associated with type 2 diabetes mellitus 08/08/2023 Injury of right great toe 08/08/2023 Nonintractable epilepsy without status epileptic us 04/10/2023 [...] shared needles. Coronary artery disease invo lving comanche heart without angina pectoris 12/19/2016 S/P coronary artery stent placement 12/19/2016 Nonrheumatic aortic valve stenosis 11/16/2016 History of narcotic addiction 01/20/2015 Overview: OD 01/2018 with neurontin Caution with neurontin, issues getting different scrips with different doses TERMINATED MEDICATION USAGE AGREEMENT 01/20/2015 Tobacco use disorder 09/03/2014 Vitamin D deficiency [...] as of this encounter (statuses as of 09/10/2023) Resolved Problems Problem Noted Date Diagnosed Date Resolved Date Hydronephrosis, right 12/06/20202020 Acute on chronic diastolic c ongestive heart failure 03/03/2020 08/26/2020 Major depressive disorder, r ecurrent, unspecified 12/30/2019 12/14/2021 Uncomplicated opioid dependence 06/23/2019 03/19/2022 Coronary artery disease invo lving comanche coronary artery of comanche heart without angina pectoris 06/23/2019 12/14/2021 Encounter for monitoring Sub oxone maintenance therapy 09/24/2018 12/14/2021 Polysubstance abuse 02/26/2018 03/19/20 22 Overview: Fall 2017 rehab [place], etc will establish w[facility] 02/2018 Suicide attempt [...] large inte cruz without hemorrhage 02/15/2016 01/18/2017 Well adult exam 09/03/2014 07/18/2023 Overview: NEED PAP 04/20 CT chest--poor quality diffuse septal thickening, PNA, ground glass b/l 04/20 TTE [facility]- normal EF+mod . 12/19 Cardiac cath -mod-severe [...] [place]/[facility] ODvs suicide attempt. [facility] [place] 09/13 ICU/intubated-fungal [id number]-hswrn-[id number] dubliniensis. , hand abscess dayna albicans MED USE AGREEMENT CANCELLED. Hx narcotic abuse , now in remission. 11/12 TTE-mod Aortic stenosis Leukocytosis 09/03/2014 12/14/2021 Overview: Chronic, s/p bone marrow biopsy Sciatica 03/11/2013 04/11/2021 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 03/31/201211/2014 intermediate card tender current use of ant icoagulant therapy 08/07/2010 [...] platelets elevated at 464, repeat CBC at [facility] 02/08: Repeat ultrasound is recommended in 3 [...] as of this encounter (statuses as of 09/10/2023) Immunizations Name Administration Dates Next Due COVID-19 mRNA, LNP-s, No Pre serve, 2-Dose Series (Moderna) 09/16/2020 Hepatitis B, 20+ yrs 08/26/2018,10/03/19 18,09/16/2017,12/19(Deferred: Patient Refused),03/02/2016,10/18/2014 Pneumococcal Conjugate Vacci ne, 20-valent ([id number]) 05/21/2023 Pneumococcal Polysaccharide PPV23 (Pneumovax) 11/28/2005 Seasonal [...] got the money to buy more. Patient declined Within the past 12 months, t he food you bought just didn't last and you didn't have money to get more. Patient declined Sex and Gender Information Value Date Recorded Sex Assigned at Female 03/03/2020 11:37 AM EST Gender Identity Female 03/03/2020 11:37 AM EST Sexual Orientation Straight 03/03/2020 11 :37 AM EST Job Start Date Occupation Industry Not on file Not on file Not on file documented as of this encounter Miscellaneous Notes * Telephone Encounter - Meghann Sorensen LPN - 09/10/2023 12:24 PM EDT 08/08/23 OV note printed and put in PCP mailbox for signature. Once signed will fax per request. * Telephone Encounter - Judith Stanton OSA - 09/06/2023 4:05 PM EDT Caller requesting the following information to be faxed: Name/Company of caller: [facility] Information requested to be faxed: office notes from 08/08/2023, needs to be signed by a , not a [place] or JOSETTE Fax number: [phone] Attention to Name/Company: na Any additional information?: this is for diabetic shoes for pt documented in this encounter Plan of Treatment Upcoming Encounters Date Type Department Care Team (Late st Contact Info) Description 10/01/2023 1:00 PM EDT Office Visit Hematology/Oncology [facility] [address] [place] [phone] Bridget Santana CRNP [address] [place] [address] 11/08/2023 1:30 PM EDT Office Visit Orthopaedics Spine Surgery, [place] [address] [place] [address] Mac Mina MD [address] [place] [address] 11/11/2023 11:00 AM EDT Office Visit Family Practice [facility] [address] [place] [address] Irvin Iverson MD [address] [place] [address] 11/20/2023 12:00 PM EDT Immunization/Inje ction Ancillary [facility] [address] [place] [address] Nurse [facility] [address] [place] [address] 12/13/2023 11:30 AM EDT Office Visit Orthopaedics Spine Surgery, [facility] [address] [place] [address] Mac Mina MD [address] [place] [address] 12/27/2023 9:00 AM EDT Office Visit Cardiology, [facility] [address] [place] [address] Laina Greer CRNP [address] [place] [address] Health Maintenance Due Date Last Done Comments Diabetic Eye Exam 11/03/2020 11/04/2019, , 01/31/2013, Additional history exists Diabetic Foot Exam 03/03/2021 03/03/2020, 0 09/24/2018, 09/20/2017, Additional history exists *SPIROMETRY ONCE FOR ASTHMA-ADULT 08/06/2021 DISCUSS TOBACCO CESSATION (REFER TO SMARTSET #3291) 08/04/2022 08/04/2021, 08/28/2017 COVID-19 Vaccine ( season) 2022 09/16/2020 Cologuard 2023 Colonoscopy 2023 Colorectal Cancer Screening 2023 Fecal Occult Blood Test 2023 Sigmoidoscopy 2023 PAP SMEAR-ANNUAL AGES 18-100 07/26/2023 07/25/2022, 09/24/2017, 07/14/2014, Additional history exists Albumin/Creatinine Ratio 12/18/2023 023, 10/05/2020, 05/28/2019, Additional history exists CKD PHOS USE SMARTSET 55331 12/18/202311/28, 11/20/2020, 09/06/2017 GFR 02/06/2024 08/07/2023, 03/30, 12/17/2022, Additional history exists HbA1c 02/06/2024 08/07/2023, 07/28, 10/05/2020, Additional history exists CKD HGB USE SMARTSET 95735 08/06/202408/06, 08/07/2023, 08/06/2022, Additional history exists Mammogram 08/28/2024 08/29/2023, 08/07/2022 DTaP,Tdap,and Td Vaccines (3 - Td [...] Advance Directives occurred with: Patient Care Teams Grout Machine Tender Relationship Specialty Start Date End Date Irvin Iverson MD [address] [place] [address] PCP - General Family Medicine 04/02/22 documented as of this encounter
--- OUTSIDE RECORDS SUMMARY | 2023-09-19 12:46 | External Medical Summary | Summary of Care ---
Author Name Unknown Organization [facility] Address [address] [place] [address] Phone [phone] Care Team Providers Care Dump Motorman Name Role Phone Irvin Iverson MD Primary Care Provider + Encounter Details Date Type Department Care Team (Late st Contact Info) Description 08/29/2023 1:00 PM EDT Imaging Radiology [address] [place] [address] Encounter for screening mammogram for breast cancer Allergies Active Allergy Reactions Criticality Noted Date Comments Azithromycin Other (Please comment) 03/28/2004 cramps Covid-19 Mrna Vacc (Moderna) 07/24/2021 Severe SOB/ hospitalized. Egg-Derived Products 05/25/2022 Other reaction(s): vomiting Ensure 02/10/2007 Vomiting, diarrhea Mushroom Extract Complex Itching 12/17/2022 Mushrooms Novocain 02/15/2010 hives [place] Extract 05/25/2022 Other reaction(s): Hives Tramadol [...] Oral Tablet (pLAVix)Indications :Coronary artery disease involving unalakleet heart without angina pectoris, unspecified vessel or lesion type,S/P coronary artery stent placement TAKE 1 TABLET BY MOUTH EVERY DAY 90 Tablet 0 08/05/2023 Active Atorvastatin Calcium 80 MG Oral Tablet (Lipitor)Indication s:Coronary artery disease involving [place] heart without angina pectoris, unspecified vessel or lesion type,HTN, goal below 140/80,Nonrheumatic aortic valve stenosis,Dyslipidem ia, goal LDL below 100 TAKE 1 TABLET BY MOUTH EVERY DAY IN THE MORNING 90 Tablet 0 08/05/2023 Active Torsemide 20 MG Oral Tablet (Demadex)Indication s:Chronic diastolic CHF (congestive heart failure) (HCC),Coronary artery disease involving [place] coronary artery of [place] heart without angina pectoris,Nonrheumat ic aortic valve [...] 3 09/01/2023 Active Vitamin D3 50 MCG (2000 UT) Oral CapsuleIndications: Vitamin D deficiency Take 1 Capsule by mouth in the morning. 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 Genotype 1A. Confirmed 2021. New since 2015. Hx shared needles. Coronary artery disease invo lving [place] heart without angina pectoris 12/19/2016 S/P coronary [...] 06/23/2019 03/19/2022 Coronary artery disease invo lving [place] coronary artery of [place] heart without angina pectoris 06/23/2019 12/14/2021 Encounter for monitoring Sub oxone maintenance therapy 09/24/2018 12/14/2021 Polysubstance abuse 02/26/2018 03/19/20 22 Overview: Fall 2017 rehab [place], etc will establish w[facility] 02/2018 Suicide attempt by drug ingestion 02/20/2018 02/26/2018 Overview: gabapentin Seizure 09/09/2017 07/19/2020 Overview: 09/13 seizure noted. ?prior approx 5ya --placed on gabapentin Homeless 06/14/2017 11/27/2018 Tobacco abuse 04/15/2017 08/12/2017 Systolic murmur 03/04/2016 04/11/2021 Overview: 09/13 STEVEN [facility]-congential thickening Partial fusion aortica valve, trivial AI, no vegetation. 2012 TTE--mild-mod AR, ?bicuspid. Diverticulosis of large inte cruz without hemorrhage 02/15/2016 01/18/2017 Well adult exam 09/03/2014 07/18/2023 Overview: NEED PAP 04/20 CT chest--poor quality diffuse septal thickening, PNA, ground glass b/l 04/20 TTE [facility]- normal EF+mod . 12/19 Cardiac cath -mod-severe CAD LAD., consider stent if angina 07/18 admitted [facility]. EEG--encephalopathy, abnormal. 2019-need restart atorv 80?. 02/23/20 PCI mid right PDA with single ROJAS [facility]. EF stable 55-60%. Lung nodules inc9mm LLL. ?infection. Consider kailyn 1mo CT. 11/14 Dr Michael LEDESMA Trazodone 100mg? Suboxone Dr Max Garcia 06/17 incarcerated 01/14 admit [facility]/Ashkan ODvs suicide attempt. [facility] [place] 09/13 ICU/intubated-fungal [id number]-ievea-[id number] dubliniensis. , hand abscess dayna albicans MED [...] platelets elevated at 464, repeat CBC at [facility] 02/08: Repeat ultrasound is recommended in [...] Patient Refused),03/02/2016,10/18/2014 Pneumococcal Conjugate Vacci ne, 20-valent ([id number]) 05/21/2023 Pneumococcal Polysaccharide PPV23 (Pneumovax) 11/28/2005 Seasonal [...] 10/01/2023 1:00 PM EDT Office Visit Hematology/On[facility] [place] [address] [facility] [phone] Bridget Santana CRNP [address] [place] [address] 11/08/2023 1:30 PM EDT Office Visit Orthopaedics Spine Surgery, [place] [address] [place] [address] Mac Mina MD [address] [place] [address] 11/11/2023 11:00 AM EDT Office Visit Family Practice [facility] [address] [facility] [place] [address] Irvin Iverson MD [address] [facility] [place] [address] 11/20/2023 12:00 PM EDT Immunization/Inje ction Ancillary [facility] [address] [place] [address] Nurse Michele Bender [facility] [address] [facility] [place] [address] 12/13/2023 11:30 AM EDT Office Visit Orthopaedics Spine Surgery [facility] [address] [facility] [place] [address] Mac Mina MD [address] [place] [address] 12/27/2023 9:00 AM EDT Office Visit Cardiology, [facility] [address] [place] [address] Laina Greer CRNP [address] [place] [address] Health Maintenance Due Date Last Done Comments [...] Additional history exists CKD PHOS USE SMARTSET 55361 12/18/202311/28, 11/20/2020, 09/06/2017 GFR 02/06/2024 08/07/2023, 03/30, 12/17/2022, Additional history exists HbA1c 02/06/2024 08/07/2023, 04, 10/05/2020, Additional history exists CKD HGB USE SMARTSET 19458 08/06/202408/06, 08/07/2023, 08/06/2022, Additional history exists Mammogram [...] Procedure Name Priority Date/Time Associated Diagnosis Comments MAMMOGRAM SCREENING NAKUL BILATERAL Routine 08/29/2023 1:14 PM EDT Encounter for screening mammogram for breast cancer documented in this encounter Results * MAMMOGRAM SCREENING NAUKL BILATERAL (08/29/2023 1:14 PM EDT) Anatomical Region Laterality Modality Breast Bilateral Mammography Narrative 08/29/2023 3:09 PM EDT Result MAMMOGRAM SCREENING NAKUL BILATERAL History Encounter for screening mammogram for breast cancer The patient has no documented relevant family history. Films Compared 08/07/2022 MAMMOGRAM DIAGNOSTIC NAKUL BILATERAL Findings The breasts have scattered areas of fibroglandular density. There is no evidence of suspicious masses, calcifications, or other abnormal findings. Impression Bilateral No mammographic evidence of malignancy. BI-RADS Category: 1 - Negative. Recommendation Screening mammogram in 1 year is recommended for both breasts. Digital breast tomosynthesis was performed. This digital mammogram has been analyzed with the computer aided detection system. This notice contains the results of your recent mammogram, including information about breast density. If your mammogram shows that your breast tissue is dense, you should know that dense breast tissue is a common finding and is not abnormal. Statistics show many women could have dense or highly dense breasts. Dense breast tissue can make it harder to find cancer on a mammogram and may be associated with an increased risk of cancer. This information about the result of your mammogram is given to you to raise your awareness and to inform your conversations with your physician. Together, you can decide which screening options are right for you, based on your mammogram results, individual risk factors or physical examination. A report of your results was sent to your physician. Your mammographic breast density on today's study is described above. There are four categories of breast density on mammography. Fatty breasts and those with scattered fibroglandular tissue are not considered dense. Heterogeneously dense or extremely dense tissue is considered "dense". Please understand that assessment of breast density may vary from year to year. This examination was performed at [facility], [address] [place], [place] [address] [address]. Irvin Iverson MD RAD MAMMOGRAPHY documented in this encounter Visit Diagnoses Diagnosis Encounter for screening mammogram for breast cancer documented in this encounter Advance Directives Latest Code Status on File Code Status Date Activated Date Inactivated Comments Full Code 02/15/2010 3:36 AM 02/16/2010 9:42 PM Thi s order reflects the patients wishes and were consensually agreed upon. Question Answer Comments Discussion of Advance Directives occurred with: Patient Care Teams Dump Motorman Relationship Specialty Start Date End Date Irvin Iverson MD [address] [place] [address] [place] [address] PCP - General Family Medicine 04/02/22 documented as of this encounter
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
--- OUTSIDE RECORDS SUMMARY | 2023-09-19 12:47 | External Medical Summary ---
Author Name Unknown Address Unknown Organization K01:LABORATORY [address] [address] Laboratory Report Ordering Provider Test Date Status RAMIN GRIMES 08/29/2023 14:44:00 Final Observation Date Value Abnormality Reference (Units ) Status Human papilloma virus E6+E7 mRNA [Presence] in Cervix by JANEEN with probe detection 08/29/2023 14:44:00 Negative Not Applicable Final No high/intermediate-risk Hu man Papillomavirus (HPV E6/E7 messenger RNA) detected by [...] developed, and its performance characteristics determined by [employer]. It has not been cleared or approved by the U.S. Food and Drug Administration (FDA). The FDA has determined that such clearance or approval is not necessary.
This assay has been performed at [employer] [facility], [address] [place] [address], [place]. [address]. Performing Location LABORATORY [address] [address]
--- OUTSIDE RECORDS SUMMARY | 2023-09-19 12:47 | External Medical Summary | Summary of Care ---
Author Name Unknown Organization [facility] Address [address] [place] [address] Phone [phone] Care Team Providers Care Cms Expert Name Role Phone Irvin Iverson MD Primary Care Provider + Reason for Visit * Reason Comments eRx-Medication Refill Encounter Details Date Type Department Care Team (Late st Contact Info) Description 09/04/[address] [facility] [address] [facility] [place] [address] Irvin Iverson MD [address] [facility] [place] [address] Coronary artery disease involving paskenta heart without angina pectoris, unspecified vessel or lesion type; HTN, goal below 140/80; Nonrheumatic aortic valve stenosis; Dyslipidemia, goal LDL below 100 Allergies Active Allergy Reactions Criticality Noted Date Comments Azithromycin Other (Please comment) 03/28/2004 cramps Covid-19 Mrna Vacc (Moderna) 07/24/2021 Severe SOB/ hospitalized. Egg-Derived Products 05/25/2022 Other reaction(s): vomiting Ensure 02/10/2007 Vomiting, diarrhea Mushroom Extract Complex Itching 12/17/2022 Mushrooms Novocain 02/15/2010 hives [place] Extract 05/25/2022 Other reaction(s): Hives Tramadol Seizure High 09/09/2012 documented as of this encounter (statuses as of 09/05/2023) Medications Medication Sig Dispensed Refills Start Date [...] Oral Tablet (pLAVix)Indications :Coronary artery disease involving paskenta heart without angina pectoris, unspecified vessel or lesion type,S/P coronary artery stent placement TAKE 1 TABLET BY MOUTH EVERY DAY 90 Tablet 0 08/05/2023 Active Atorvastatin Calcium 80 MG Oral Tablet (Lipitor)Indication s:Coronary artery disease involving paskenta heart without angina pectoris, unspecified vessel or lesion type,HTN, goal below 140/80,Nonrheumatic aortic valve stenosis,Dyslipidem ia, goal LDL below 100 TAKE 1 TABLET BY MOUTH EVERY DAY IN THE MORNING 90 Tablet 0 08/05/2023 Active Torsemide 20 MG Oral Tablet (Demadex)Indication s:Chronic diastolic CHF (congestive heart failure) (HCC),Coronary artery disease involving paskenta coronary artery of paskenta heart without angina pectoris,Nonrheumat ic aortic valve [...] surveillance of injectable contraceptive 150 mg IM [id number] 05/11/2023 05/05/2024 Active documented as of this encounter (statuses as of 09/05/2023) Active Problems Problem Noted Date Diagnosed Date [...] without hepatic coma 018 Overview: 09/13 dx [facility]. Genotype 1A. Confirmed 2021. New since 2015. [...] as of this encounter (statuses as of 09/05/2023) Resolved Problems Problem Noted Date Diagnosed Date [...] 02/26/2018 03/19/20 22 Overview: Fall 2017 rehab [place], etc will establish w/[facility] 02/2018 Suicide attempt by drug ingestion 02/20/2018 02/26/2018 Overview: gabapentin Seizure 09/09/2017 07/19/2020 Overview: 09/13 seizure noted. ?prior approx 5ya --placed on gabapentin Homeless 06/14/2017 11/27/2018 Tobacco abuse 04/15/2017 08/12/2017 Systolic murmur 03/04/2016 04/11/2021 Overview: 09/13 [facility]-congential thickening Partial fusion aortica valve, trivial AI, no vegetation. 2012 TTE--mild-mod AR, ?bicuspid. Diverticulosis of large inte cruz without hemorrhage 02/15/2016 01/18/2017 Well adult exam 09/03/2014 07/18/2023 Overview: NEED PAP 04/20 CT chest--poor quality diffuse septal thickening, PNA, ground glass b/l 04/20 TTE [facility]- normal EF+mod . 12/19 Cardiac cath -mod-severe CAD LAD., consider stent if angina 07/18 admitted [facility]. EEG--encephalopathy, abnormal. 2019-need restart atorv 80?. 02/23/20 PCI mid right PDA with single ROJAS [facility]. EF stable 55-60%. Lung nodules inc9mm LLL. ?infection. Consider kailyn 1mo CT. 11/14 Dr Michael LEDESMA Trazodone 100mg? Suboxone Dr Max Garcia 06/17 incarcerated 01/14 admit [facility]/Ashkan ODvs suicide attempt. 02/13 d/c to [facility] in [place]. 09/13 ICU/intubated-fungal sbolgv-weyxw-Gvdzdsh dubliniensis. , hand abscess dayna albicans MED USE AGREEMENT CANCELLED. Hx narcotic abuse , now in remission. 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 08/07/2010 [...] platelets elevated at 464, repeat CBC [facility] 02/08: Repeat ultrasound is recommended in [...] as of this encounter (statuses as of 09/05/2023) Immunizations Name Administration Dates Next Due COVID-19 mRNA, LNP-s, No Pre serve, 2-Dose Series (Moderna) 09/16/2020 Hepatitis B, 20+ yrs 08/26/2018,10/03/19 18,09/16/2017,12/19(Deferred: Patient Refused),03/02/2016,10/18/2014 Pneumococcal Conjugate Vacci ne, 20-valent ([id number]) 05/21/2023 Pneumococcal Polysaccharide PPV23 (Pneumovax) 11/28/2005 Seasonal [...] Telephone Encounter - Nayeli Thakur RPh - 09/05/2023 9:54 AM EDTRefused Prescriptions: Disp Refills Atorvastatin Calcium 80 MG Oral Tablet (Li*30 Tab*10 Sig: TAKE 1 TABLET BY MOUTH EVERY MORNINGRefused By: Ceci THAKUR for Refusal: Too soonReason for Refusal Comment: sent to [facility] Famotidine 20 MG Oral Tablet (Pepcid) 30 Tab*10 Sig: TAKE 1 TABLET BY MOUTH ONCE DAILYRefused By: Ceci THAKUR for Refusal: Too soonReason for Refusal Comment: sent to [facility] documented in this encounter Plan of Treatment Upcoming Encounters Date Type Department Care Team (Late st Contact Info) Description 10/01/2023 1:00 PM EDT Office Visit Hematology/Oncology [place] [facility] [address] [place] [phone] Bridget Santana CRNP [address] [place] [address] 11/08/2023 1:30 PM EDT Office Visit Orthopaedics Spine Surgery, [facility] [address] [place] [address] Mac Mina MD [address] [place] [address] 11/11/2023 11:00 AM EDT Office Visit Family Practice [facility] [address] [place] [address] Irvin Iverson MD [address] [place] [address] 11/20/2023 12:00 PM EDT Immunization/Inje ction Ancillary [facility] [address] [place] [address] Nurse Napoleon [facility] [address] [place] [address] 12/13/2023 11:30 AM EDT Office Visit Orthopaedics Spine Surgery, [facility] [address] [place] [address] Mac Mina MD [address] [place] [address] 12/27/2023 9:00 AM EDT Office Visit Cardiology, [facility] [address] [place] [address] Laina Greer CRNP [address] [place] [address] Health Maintenance Due Date Last Done Comments Diabetic Eye Exam 11/03/2020 11/04/2019, , 01/31/2013, Additional history exists Diabetic Foot Exam 03/03/2021 03/03/2020, 0 09/24/2018, 09/20/2017, Additional history exists *SPIROMETRY ONCE FOR ASTHMA-ADULT 08/06/2021 DISCUSS TOBACCO CESSATION (REFER TO SMARTSET #8021) 08/04/2022 08/04/2021, 08/28/2017 COVID-19 Vaccine (2022- season) 2022 09/16/2020 Cologuard 2023 Colonoscopy 2023 Colorectal Cancer Screening 2023 Fecal Occult Blood Test 2023 Sigmoidoscopy 2023 PAP SMEAR-ANNUAL AGES 18-100 07/26/2023 07/25/2022, 09/24/2017, 07/14/2014, Additional history exists Albumin/Creatinine Ratio 12/18/2023 023, 10/05/2020, 05/28/2019, Additional history exists CKD PHOS USE SMARTSET 99870 12/18/[address] 04/2022, 11/20/2020, 09/06/2017 GFR 02/06/2024 08/07/2023, 03/30, 12/17/2022, Additional history exists HbA1c 02/06/2024 08/07/2023, 07/28, 10/05/2020, Additional history exists CKD HGB USE SMARTSET 62373 08/06/202408/06, 08/07/2023, 08/06/2022, Additional history exists Mammogram [...] Visit Diagnoses Diagnosis Coronary artery disease involving paskenta heart without angina pectoris, unspecified vessel or lesion type HTN, goal below 140/80 Unspecified essential hypertension Nonrheumatic aortic valve stenosis Aortic valve disorders [...] Advance Directives occurred with: Patient Care Teams Cms Expert Relationship Specialty Start Date End Date Irvin Iverson MD [address] [place] [address] PCP - General Family Medicine 04/02/22 documented as of this encounter
--- NOTE | 2023-09-19 13:52 | Vascular Medicine Consultation ---
Date of Consultation September 19, 2023 Assessment & Plan (1) Diabetic infection of left foot: With osteomyelitis of fourth toe 2. Peripheral arterial diseaseleft NEEDLE LEADER/SFA/popliteal disease ultrasound 3. Type 2 diabetes with neuropathy 4. Coronary artery diseasepost multivessel stenting 5. Moderate aortic stenosis 6. Anemia 7. Stage III CKD Patient seen today in the setting of nonhealing left fourth toe ulceration now complicated by osteomyelitis. Exam and non-invasive vascular testing suggestive of severe arterial insufficiency. Patient seen today with podiatry. Plan is for fourth toe amputation. Recommend revascularization of femoral/popliteal artery disease in effort to assist future surgical wound healing and improve long-term claudication. We tentatively discussed left lower extremity angiogram and intervention tomorrow. Will attempt to coordinate with podiatry. Thank you for allowing us to participate in the care of this patient. Please contact with any questions. History of Present Illness Attending Physician: Fany Iraheta MD History of Present Illness Ms. Gonzalez is a pleasant 43 year-old woman seen today in hospital in the setting of nonhealing diabetic foot ulcer, osteomyelitis and PAD. She is followed by [facility] cardiology for her cardiac issues. Has a history of multivessel CAD post prior stents to her ramus, circumflex and PDA. She has a known calcified intermediate mid LAD bifurcation lesion (last cath 11/2022). Also with moderate aortic stenosis (peak to peak gradient 30). Other medical issues include type 2 diabetes with neuropathy, hypertension, dyslipidemia, hepatitis C, COPD with prior respiratory failure, polysubstance abuse on chronic Suboxone resolved tricuspid valve endocarditis and seizure disorder. She developed a nonhealing wound on her left fourth toe on 08/05/2023 while clipping her nails. Has been followed by wound clinic since 08/19/2023. Has been waiting to see Dr. Holland with podiatry. Referred to ED due to deterioration of fourth toe wound and signs of infection. Now on IV antibiotics. X-ray consistent with osteomyelitis, surface wound cultures growing Pseudomonas, Klebsiella. Left lower extremity arterial duplex evidence of flow-limiting stenosis and left NEEDLE LEADER, and diffuse SFA, likely popliteal disease. Appears to have three-vessel distal runoff. Social history: Ongoing smoker. Lives alone. Allergies Allergy/AdvReac Type Severity Reaction Status Date / Time lidocaine Allergy Intermediate HIVES Verified 09/18/23 15:04 procaine Allergy Intermediate HIVES Verified 09/18/23 15:04 strawberry Allergy Intermediate HIVES Verified 09/18/23 15:04 Penicillins Allergy Mild HAD NO Verified 09/18/23 15:04 PROBLEM WITH ZOSYN mushroom Allergy Unknown Unknown Verified 09/18/23 15:04 onion Allergy Unknown Unknown Verified 09/18/23 15:04 COVID-19 (SARS-CoV-2) AdvReac Severe stopped Verified 09/18/23 15:04 vaccine, zoraida breathing next day cephalexin AdvReac Intermediate YEAST Verified 09/18/23 15:04 INFECTIONS tramadol AdvReac Intermediate SEIZURES Verified 09/18/23 15:04 azithromycin AdvReac Mild STOMACH Verified 09/18/23 15:04 PAIN Home Medications Medication Instructions Recorded Confirmed Type albuterol sulfate 2.5 mg/3 mL 2.5 mg inhalation Q4 PRN 07/10/21 09/18/23 History (0.083 %) solution for nebulization WHEEZE/COUGH albuterol sulfate 90 mcg/actuation 2 puff inhalation Q4 PRN cough or 07/10/21 09/18/23 History aerosol inhaler wheezing atorvastatin 80 mg tablet 80 mg PO QAM 07/10/21 09/18/23 History buspirone 15 mg tablet 15 mg PO AMHS 07/10/21 09/18/23 History clopidogrel 75 mg tablet 75 mg PO DAILY 07/10/21 09/18/23 History cyclobenzaprine 10 mg tablet 10 mg PO BID 07/10/21 09/18/23 History levetiracetam 500 mg tablet 500 mg PO AMHS 07/10/21 09/18/23 History lisinopril 5 mg tablet 5 mg PO QAM 07/10/21 09/18/23 History metformin 1,000 mg tablet 1,000 mg PO BID 07/10/21 09/18/23 History metoprolol succinate 25 mg 25 mg PO DAILY 07/10/21 09/18/23 History tablet,extended release 24 hr polyethylene glycol 3350 17 gram 17 g PO DAILY PRN Constipation 07/10/21 09/18/23 History oral powder packet (Miralax) potassium chloride 20 mEq 20 meq PO QAM 07/10/21 09/18/23 History tablet,extended release(part/cryst) (Klor-Con M) torsemide 20 mg tablet 20 mg PO DAILY 07/10/21 09/18/23 History trazodone 50 mg tablet 100 mg PO HS 07/10/21 09/18/23 History aspirin 81 mg tablet,delayed 81 mg PO DAILY 03/03/22 09/18/23 History release famotidine 20 mg tablet 20 mg PO BID PRN Heartburn 03/03/22 09/18/23 History fluticasone furoate 200 1 inh inhalation QAM 03/03/22 09/18/23 History mcg-vilanterol 25 mcg/dose inhalation powder (Breo Ellipta) gabapentin 300 mg capsule 600 mg PO BID@0800,1400 03/03/22 09/18/23 History nitroglycerin 0.4 mg sublingual 0.4 mg sublingual DAILY PRN Chest 03/03/22 09/18/23 History tablet Pain ferrous sulfate 325 mg (65 mg 325 mg PO Q2D 04/22/23 09/18/23 History iron) tablet gabapentin 300 mg capsule 900 mg PO HS 04/22/23 09/18/23 History meclizine 25 mg tablet 25 mg PO TID PRN Dizziness 04/22/23 09/18/23 History buprenorphine 8 mg-naloxone 2 mg 1 tab sublingual DAILY 05/28/23 09/18/23 History sublingual tablet dexamethasone 6 mg tablet 6 mg PO DAILY #7 tabs 06/02/23 09/18/23 Rx escitalopram oxalate 20 mg tablet 20 mg PO QAM 08/19/23 09/18/23 History collagenase clostridium histo. 250 1 applic topical DAILY #30 grams 09/09/23 09/18/23 Rx unit/gram topical ointment (Santyl) ciprofloxacin HCl 500 mg tablet 500 mg PO BID 14 days #28 tabs 09/11/23 09/18/23 Rx Patient History Medical History AJIT (acute kidney injury) Methamphetamine abuse Anemia, iron deficiency History of drug abuse Hepatitis C "Antibiotic screen positive, quantitative RNA positive 08/30/17" Surgical History S/P coronary artery stent placement History of cardiac cath 2017- 1 ROJAS to ramus, 2 ROJAS to L circumflex. 40-50% plaque to LAD 2018- distal disease (80%) within PDA Family History Other Diabetes Heart disease Hypertension Kidney stones Seizures Social History Smoking Status: Current every day smoker Tobacco Type: Cigarettes Cigarettes Per Day: 10; Second Hand Exposure: Yes; Do You Dip or Chew Tobacco: No; Hx Alcohol Use: No Hx Substance Use: Yes (hx in remission. subutex.) Non-Prescribed Medications: Heroin, IV Drugs and Methamphetamines Last Used Substance: Unknown Substance Use Type Other:: 3 years drug free per record Preferred Language: Malawian Communication Ability: Effective Visual Impairment: No Limitations Hearing Ability: Normal Equal Opportunity Director Required: No Beliefs That Will Affect Care: None marital status: Single Current Living Situation: Alone Current Living Situation Comment: home don How many Children do You have: 1 Other Information That Helps Us Care for You: No Feels Safe at Home: Yes Safety Concerns: Feels Safe At This Time Assistive Devices: Oxygen - at Night and Walker Review of Systems Review of Systems: All systems reviewed & are unremarkable except as noted in HPI & below Physical Exam Physical Exam: General: Comfortable, no acute distress Eyes: Sclerae anicteric Lungs: Clear to auscultation bilaterally Cardiac: Regular rate and rhythm, 2 out of 6 systolic ejection murmur heard best at right upper sternal border Abdomen: Soft Neuro: Nonfocal Psych: Alert orient x3, normal affect and mood Extremities/Vascular: -- Nonpalpable DP/PT pulses on left. Sluggish capillary refill in toes 1 through 5. -- Fourth toe - Dark, with areas of necrosis, mild erythema extending to forefoot, no significant drainage. -- No lower extremity edema bilaterally Results & Data Vital Signs (Past 12 Hours) Vital Signs Temp Pulse Pulse Resp BP Pulse Ox O2 Del Method 09/19/23 10:47 98.1 F 87 18 104/69 97 Room Air 09/19/23 08:05 Room Air 09/19/23 07:24 98.4 F 89 18 116/76 97 Room Air 09/19/23 07:00 84 09/19/23 03:36 98.4 F 76 18 114/59 L 95 Room Air PG Care Time/CCT Total # of Minutes Spent Total Time Spent with Patient: Total time spent is greater than 50% in coordination of care (as documented) at patient's floor/unit and/or counseling patient: Coding Level of Care Code 91870 INT INP/OBS CARE MIN Diagnoses Diabetic infection of left foot E11.628; L08.9
--- NOTE | 2023-09-19 15:52 | Hospitalist Progress Note ---
Date of Service September 19, 2023 Assessment & Plan (1) Diabetic infection of left foot: (2) Peripheral neuropathy: (3) AJIT (acute kidney injury): (4) Polysubstance abuse: (5) HTN (hypertension): (6) HLD (hyperlipidemia): (7) Coronary artery disease: (8) Diabetes mellitus, type 2: (9) History of DVT (deep vein thrombosis): (10) CKD (chronic kidney disease), stage III: (11) Diabetic foot ulcer: (12) History of seizure: Plan Ms. Gonzalez is a 43 year old female that presented to the ED as recommended by her auction assistant. She has been being followed as an outpatient for a 4th toe wound infection through the wound clinic as well. Her wound has been dressed with Aquacel Ag. She was started on Ciprofloxacin on 09/17. Her original injury to her toe occurred in July 2023 and has been worsening since. An MRI was scheduled for September/2023 to evaluate for osteomyelitis and she was referred to Dr. Boyd for surgical consultation which was to take place tomorrow 09/18. Additionally patient was to have arterial venous studies done on 10/03/2023. Additional past medical history includes DVT, [id number] diabetes, CKD, meth use, history of IVDA (last use 6 years ago), hepatitis C, h/o seizures (On Keppra). Her last seizure was a few years ago. She takes Keppra compliantly. Left foot x-ray: Findings concerning for osteomyelitis of the fourth digit distal phalanx with prominent bony erosion. Patient started on meropenem for pseudomonas/klebsiella given susceptibility YENNI <16 for zosyn, <1 with miriam. Podiatry and Vascular on consult: planning revascularization and amputation. Sepsis secondary to diabetic infection of left 4th toe: #osteomyelitis of 4th toe #Peripheral neuropathy: Foot x-ray left foot concerning of osteomyelitis fourth digit proximal bony erosion. IV Zosyn started in ED; continue for now and adjust based on wound culture and blood culture results discontinued zosyn/dapto Follows wound clinic outpatient continue while inpatient here Foot x-ray : Findings concerning for osteomyelitis of the fourth digit distal phalanx with prominent bony erosion. Takes gabapentin; continue Podiatry consult placed -amputation tomorrow Lactate 1.1 blood cultures ordered Meropenem started 2/2 YENNI <1 v <16 for zosyn ID consult #PAD with left PANTS CUTTER/SFA/popliteal disease on US -Revascularization tomorrow #CKD: Chronic serum creatinine 1.63; baseline 1.57-1.90 #HTN: Chronic Takes lisinopril; continue #CAD: Chronic Status post two-vessel ROJAS placed 10/2016 Takes aspirin plus Plavix; hold #Trt-hbldrsd-vhtpvaxtg diabetic: Chronic Takes metformin; hold patient placed on SSI ACHS 6.0% 09/18 #COPD: Chronic Takes Breo-Ellipta;continue #History of DVT: Chronic Years ago not on any anticoagulation #History of IVDA: Chronic Reports last use 6 years ago Takes Suboxone; continue #Depression: Chronic Takes Lexapro; continue Disposition: PCP: Dr. Iverson CODE STATUS: Full code VTE prophylaxis: heparin sq *hold NPO midnight Admission and Anticipated Discharge Date Admission Date: September 18, 2023 Subjective Patient evaluated at bedside Physical Exam Constitutional: WD/WN, vitals as above Cardiovascular: RRR, no murmur, no edema Gastrointestinal (Abdomen): normal bowel sounds, soft, nontender, no hepatosplenomegaly Skin: left foot with bandage in place over fourth digit Results & Data Results & Data Vital Signs (Past 12 Hours) Vital Signs Temp Pulse Pulse Resp BP Pulse Ox O2 Del Method 09/19/23 15:36 36.8 C 72 18 138/86 100 Room Air 09/19/23 15:00 81 09/19/23 10:47 36.7 C 87 18 104/69 97 Room Air 09/19/23 08:05 Room Air 09/19/23 07:24 36.9 C 89 18 116/76 97 Room Air 09/19/23 07:00 84 Laboratory Results Short CBC 09/19/23 Range/Units 07:33 WBC 9.80 (4.8-10.8) K/ul Hgb 7.7 L (12.0-16.0) g/dl Hct 25.5 L (37.0-47.0) % Plt Count 351 (130-400) K/uL BMP 09/19/23 07:33 Sodium 139 Potassium 4.7 D Chloride 112 H Carbon Dioxide 21 BUN 15 Creatinine 1.57 H Glucose 104 H Calcium 8.6 Cardiac Enzymes 09/19/23 Range/Units 16:35 Total Creatine Kinase 120 (26-192) U/L Medications Administered Home Medications Medication Instructions Recorded Confirmed Last Taken albuterol sulfate 2.5 mg/3 mL 2.5 mg inhalation Q4 PRN 07/10/21 09/18/23 Unknown (0.083 %) solution for nebulization WHEEZE/COUGH albuterol sulfate 90 mcg/actuation 2 puff inhalation Q4 PRN cough or 07/10/21 09/18/23 Unknown aerosol inhaler wheezing atorvastatin 80 mg tablet 80 mg PO [facility] 07/10/21 09/18/23 05/28/23 buspirone 15 mg tablet 15 mg PO [facility] 07/10/21 09/18/23 05/28/23 08:00 clopidogrel 75 mg tablet 75 mg PO DAILY 07/10/21 09/18/23 05/28/23 cyclobenzaprine 10 mg tablet 10 mg PO BID 07/10/21 09/18/23 05/28/23 08:00 levetiracetam 500 mg tablet 500 mg PO [facility] 07/10/21 09/18/23 05/28/23 08:00 lisinopril 5 mg tablet 5 mg PO [facility] 07/10/21 09/18/23 05/28/23 metformin 1,000 mg tablet 1,000 mg PO BID 07/10/21 09/18/23 05/28/23 08:00 metoprolol succinate 25 mg 25 mg PO DAILY 07/10/21 09/18/23 05/28/23 tablet,extended release 24 hr polyethylene glycol 3350 17 gram 17 g PO DAILY PRN Constipation 07/10/21 09/18/23 05/28/23 oral powder packet (Miralax) potassium chloride 20 mEq 20 meq PO M 07/10/21 09/18/23 05/28/23 tablet,extended release(part/cryst) (Klor-Con M) torsemide 20 mg tablet 20 mg PO DAILY 07/10/21 09/18/23 05/28/23 trazodone 50 mg tablet 100 mg PO HS 07/10/21 09/18/23 05/27/23 aspirin 81 mg tablet,delayed 81 mg PO DAILY 03/03/22 09/18/23 05/28/23 release famotidine 20 mg tablet 20 mg PO BID PRN Heartburn 03/03/22 09/18/23 Unknown fluticasone furoate 200 1 inh inhalation QAM 03/03/22 09/18/23 05/28/23 mcg-vilanterol 25 mcg/dose inhalation powder (Breo Ellipta) gabapentin 300 mg capsule 600 mg PO BID@0800,1400 03/03/22 09/18/23 05/28/23 08:00 nitroglycerin 0.4 mg sublingual 0.4 mg sublingual DAILY PRN Chest 03/03/22 09/18/23 05/28/23 tablet Pain ferrous sulfate 325 mg (65 mg 325 mg PO Q2D 04/22/23 09/18/23 05/27/23 iron) tablet gabapentin 300 mg capsule 900 mg PO HS 04/22/23 09/18/23 05/27/23 meclizine 25 mg tablet 25 mg PO TID PRN Dizziness 04/22/23 09/18/23 Unknown buprenorphine 8 mg-naloxone 2 mg 1 tab sublingual DAILY 05/28/23 09/18/23 05/27/23 sublingual tablet dexamethasone 6 mg tablet 6 mg PO DAILY #7 tabs 06/02/23 09/18/23 Unknown escitalopram oxalate 20 mg tablet 20 mg PO QAM 08/19/23 09/18/23 Unknown collagenase clostridium histo. 250 1 applic topical DAILY #30 grams 09/09/23 09/18/23 Unknown unit/gram topical ointment (Santyl) ciprofloxacin HCl 500 mg tablet 500 mg PO BID 14 days #28 tabs 09/11/23 09/18/23 Unknown Active Medications Generic Name Dose Route Start Last Admin Trade Name Freq PRN Reason Stop Dose Admin Aspirin 81 mg 09/19/23 09:00 09/19/23 08:06 Aspirin 81 Mg Ectab PO 10/19/23 08:59 81 mg DAILY WILMA Administration Buprenorphine/Naloxone 1 tab 09/19/23 09:00 09/19/23 08:14 Buprenorphine/Naloxone 8/2 Mg Tab SL 10/19/23 08:59 1 tab DAILY WILMA Administration Buspirone HCl 15 mg 09/18/23 21:00 09/19/23 08:06 Buspirone 15 Mg Tab PO 10/18/23 20:59 15 mg AMHS WILMA Administration Clopidogrel Bisulfate 75 mg 09/19/23 09:00 09/19/23 08:06 Clopidogrel Bisulfate 75 Mg Tab PO 10/19/23 08:59 75 mg DAILY WILMA Administration Cyclobenzaprine HCl 10 mg 09/18/23 21:00 09/19/23 08:06 Cyclobenzaprine Hcl 10 Mg Tab PO 10/18/23 20:59 10 mg BID WILMA Administration Escitalopram Oxalate 20 mg 09/19/23 09:00 09/19/23 08:05 Escitalopram Oxalate 20 Mg Tab PO 10/19/23 08:59 20 mg QAM WILMA Administration Ferrous Sulfate 325 mg 09/19/23 09:00 09/19/23 08:08 Ferrous Sulfate 325 Mg Tab PO 10/19/23 08:59 325 mg Q2D@0900 WILMA Administration Fluticasone/Vilanterol 1 puffs 09/19/23 09:00 09/19/23 08:05 Fluticasone/Vilanterol 200/25mcg 14 Puffs/Inhaler INH 10/19/23 08:59 1 puffs QAM WILMA Administration Gabapentin 600 mg 09/19/23 08:00 09/19/23 14:24 Gabapentin 300 Mg Cap PO 10/19/23 07:59 600 mg BID@0800,1400 WILMA Administration Gabapentin 900 mg 09/18/23 21:00 09/18/23 20:35 Gabapentin 300 Mg Cap PO 10/18/23 20:59 900 mg HS WILMA Administration Heparin Sodium (Porcine) 5,000 units 09/18/23 21:00 09/19/23 08:07 Heparin Sod 5,000 Unit/0.5 Ml Vial SQ 10/18/23 20:59 Not Given Q12 WILMA Insulin Aspart 0 units 09/18/23 20:00 09/19/23 18:10 Insulin Aspart Per Unit Charge SC 10/18/23 19:59 4 units Q6 WILMA Administration Levetiracetam 500 mg 09/18/23 21:00 09/19/23 08:06 Levetiracetam 500 Mg Tab PO 10/18/23 20:59 500 mg AMHS WILMA Administration Lisinopril 5 mg 09/19/23 09:00 09/19/23 08:05 Lisinopril 5 Mg Tab PO 10/19/23 08:59 5 mg QAM WILMA Administration Metoprolol Succinate 25 mg 09/19/23 09:00 09/19/23 08:05 Metoprolol Succ 25mg Ext Rel Tab PO 10/19/23 08:59 25 mg DAILY WILMA Administration Morphine Sulfate 2 mg 09/18/23 17:36 09/19/23 16:05 Morphine Sulfate 2 Mg/Ml Carp IV 10/02/23 17:35 2 mg Q4H PRN Administration Severe Pain (Scale 7, 8, 9,10) Potassium Chloride 20 meq 09/19/23 09:00 09/19/23 08:05 Potassium Chloride Crtab 20 Meq Tabcr PO 10/19/23 08:59 20 meq QAM WILMA Administration Trazodone HCl 100 mg 09/18/23 21:00 09/18/23 20:37 Trazodone Hcl 100 Mg Tab PO 10/18/23 20:59 100 mg HS WILMA Administration (8) Diabetes mellitus, type 2 Diabetes mellitus complication status: with unspecified complications Diabetes mellitus senior living insulin use: without intermediate accountant use Qualified Code(s): E11.8 - Type 2 diabetes mellitus with unspecified complications (11) Diabetic foot ulcer Diabetes mellitus type: type 2 Diabetic foot ulcer location: toe Laterality: unspecified laterality Non-pressure ulcer stage: with fat layer exposed Qualified Code(s): E11.621 - Type 2 diabetes mellitus with foot ulcer; L97.502 - Non-pressure chronic ulcer of other part of unspecified foot with fat layer exposed
--- NOTE | 2023-09-19 16:44 | Podiatry Consultation ---
Date of Consultation September 19, 2023 Assessment & Plan (1) Acute osteomyelitis of toe of left foot: (2) Diabetic infection of left foot: (3) Peripheral neuropathy: Peripheral neuropathy type: polyneuropathy associated with underlying disease Qualified Code(s): G63 - Polyneuropathy in diseases classified elsewhere (4) Diabetic foot ulcer: Diabetic foot ulcer location: toe Diabetes mellitus type: type 2 Laterality: unspecified laterality Non-pressure ulcer stage: with fat layer exposed Qualified Code(s): E11.621 - Type 2 diabetes mellitus with foot ulcer; L97.502 - Non-pressure chronic ulcer of other part of unspecified foot with fat layer exposed Plan - Pt seen at bedside, examined and evaluated. - Plan for fourth toe amputation tomorrow, likely. Can be performed outpatient, too, but would ideally be done here due to transportation concerns. - Ideally, revascularization performed with Dr. Hay in AM, then our toe amp in the afternoon. discussed this plan at bedside with both patient and Dr. Hay. She seems amenable to this. - If she is too fatigued from first procedure, can plan on amp at another time, likely Saturday. - Continue IV abx for now; daily dressing changes until surgery. History of Present Illness Reason for Consultation: left foot osteomyelitis Attending Physician: Fany Iraheta MD History of Present Illness patient seen at bedside. She presents to the emergency department after meeting with the wound care center on multiple occasions for left fourth toe ulceration. She was sent from the wound care center as an outpatient referral to our office, but rescheduled multiple times. After she missed her last appointment, she presented again to the wound care center who sent clinical images to our office. After visualizing these images, and discussing with the wound care team, I stated that if she was unable to make her next scheduled appoint with us because of further difficulties in arranging care, she would benefit from percent into the emergency department for urgent care of this underlying osteomyelitis. Further, an x-ray did reveal acute osteomyelitis of the distal phalanx of the left fourth toe. She states that she has had difficulty in healing this ulcer and has had some systemic signs of infection as well. She denies any new or recent medical history change otherwise. Allergies Allergy/AdvReac Type Severity Reaction Status Date / Time lidocaine Allergy Intermediate HIVES Verified 09/18/23 15:04 procaine Allergy Intermediate HIVES Verified 09/18/23 15:04 strawberry Allergy Intermediate HIVES Verified 09/18/23 15:04 Penicillins Allergy Mild HAD NO Verified 09/18/23 15:04 PROBLEM WITH ZOSYN mushroom Allergy Unknown Unknown Verified 09/18/23 15:04 onion Allergy Unknown Unknown Verified 09/18/23 15:04 COVID-19 (SARS-CoV-2) AdvReac Severe stopped Verified 09/18/23 15:04 vaccine, zoraida breathing next day cephalexin AdvReac Intermediate YEAST Verified 09/18/23 15:04 INFECTIONS tramadol AdvReac Intermediate SEIZURES Verified 09/18/23 15:04 azithromycin AdvReac Mild STOMACH Verified 09/18/23 15:04 PAIN Home Medications Medication Instructions Recorded Confirmed Type albuterol sulfate 2.5 mg/3 mL 2.5 mg inhalation Q4 PRN 07/10/21 09/18/23 History (0.083 %) solution for nebulization WHEEZE/COUGH albuterol sulfate 90 mcg/actuation 2 puff inhalation Q4 PRN cough or 07/10/21 09/18/23 History aerosol inhaler wheezing atorvastatin 80 mg tablet 80 mg PO QAM 07/10/21 09/18/23 History buspirone 15 mg tablet 15 mg PO AMHS 07/10/21 09/18/23 History clopidogrel 75 mg tablet 75 mg PO DAILY 07/10/21 09/18/23 History cyclobenzaprine 10 mg tablet 10 mg PO BID 07/10/21 09/18/23 History levetiracetam 500 mg tablet 500 mg PO AMHS 07/10/21 09/18/23 History lisinopril 5 mg tablet 5 mg PO QAM 07/10/21 09/18/23 History metformin 1,000 mg tablet 1,000 mg PO BID 07/10/21 09/18/23 History metoprolol succinate 25 mg 25 mg PO DAILY 07/10/21 09/18/23 History tablet,extended release 24 hr polyethylene glycol 3350 17 gram 17 g PO DAILY PRN Constipation 07/10/21 09/18/23 History oral powder packet (Miralax) potassium chloride 20 mEq 20 meq PO QAM 07/10/21 09/18/23 History tablet,extended release(part/cryst) (Klor-Con M) torsemide 20 mg tablet 20 mg PO DAILY 07/10/21 09/18/23 History trazodone 50 mg tablet 100 mg PO HS 07/10/21 09/18/23 History aspirin 81 mg tablet,delayed 81 mg PO DAILY 03/03/22 09/18/23 History release famotidine 20 mg tablet 20 mg PO BID PRN Heartburn 03/03/22 09/18/23 History fluticasone furoate 200 1 inh inhalation QAM 03/03/22 09/18/23 History mcg-vilanterol 25 mcg/dose inhalation powder (Breo Ellipta) gabapentin 300 mg capsule 600 mg PO BID@0800,1400 03/03/22 09/18/23 History nitroglycerin 0.4 mg sublingual 0.4 mg sublingual DAILY PRN Chest 03/03/22 09/18/23 History tablet Pain ferrous sulfate 325 mg (65 mg 325 mg PO Q2D 04/22/23 09/18/23 History iron) tablet gabapentin 300 mg capsule 900 mg PO HS 04/22/23 09/18/23 History meclizine 25 mg tablet 25 mg PO TID PRN Dizziness 04/22/23 09/18/23 History buprenorphine 8 mg-naloxone 2 mg 1 tab sublingual DAILY 05/28/23 09/18/23 History sublingual tablet dexamethasone 6 mg tablet 6 mg PO DAILY #7 tabs 06/02/23 09/18/23 Rx escitalopram oxalate 20 mg tablet 20 mg PO QAM 08/19/23 09/18/23 History collagenase clostridium histo. 250 1 applic topical DAILY #30 grams 09/09/23 09/18/23 Rx unit/gram topical ointment (Santyl) ciprofloxacin HCl 500 mg tablet 500 mg PO BID 14 days #28 tabs 09/11/23 09/18/23 Rx Patient History Medical History AJIT (acute kidney injury) Methamphetamine abuse Anemia, iron deficiency History of drug abuse Hepatitis C "Antibiotic screen positive, quantitative RNA positive 08/30/17" Surgical History S/P coronary artery stent placement History of cardiac cath 2017- 1 ROJAS to ramus, 2 ROJAS to L circumflex. 40-50% plaque to LAD 2018- distal disease (80%) within PDA Family History Other Diabetes Heart disease Hypertension Kidney stones Seizures Social History Smoking Status: Current every day smoker Tobacco Type: Cigarettes Cigarettes Per Day: 10; Second Hand Exposure: Yes; Do You Dip or Chew Tobacco: No; Hx Alcohol Use: No Hx Substance Use: Yes (hx in remission. subutex.) Non-Prescribed Medications: Heroin, IV Drugs and Methamphetamines Last Used Substance: Unknown Substance Use Type Other:: 3 years drug free per record Preferred Language: [place] Communication Ability: Effective Visual Impairment: No Limitations Hearing Ability: Normal Machine Repairer Required: No Beliefs That Will Affect Care: None marital status: Single Current Living Situation: Alone Current Living Situation Comment: home don How many Children do You have: 1 Other Information That Helps Us Care for You: No Feels Safe at Home: Yes Safety Concerns: Feels Safe At This Time Assistive Devices: Oxygen - at Night and Walker Review of Systems Review of Systems: All systems reviewed & are unremarkable except as noted in HPI & below Constitutional: + fever and + fatigue; no chills Eyes: no problem reported Ear, Nose, Mouth, Throat: no problem reported Respiratory: no problem reported Cardiovascular: + edema; no problem reported Gastrointestinal: no nausea, no vomiting and no problem reported Genitourinary: no problem reported Musculoskeletal: no problem reported Integumentary: + non-healing lesions, + skin ulcer, + w ounds and + erythema Neurologic: + loss of sensation, + numbness and + pa resthesia; no generalized weakness Psychiatric: no problem reported Physical Exam Physical Exam: lower extremity focused exam: DP/PT pulses 0/4 bilaterally. Advanced trophic changes are noted to the bilateral lower extremity with distal cooling, atrophic skin, dystrophic nails, and this ulceration to the left fourth toe. The ulceration probes to bone immediately along the distal aspect of the toe. There is no randy purulence, though the toe is diffusely erythematous and edematous. No ascending cellulitis is noted. Plain film radiographs do reveal essentially complete destruction of the fourth distal phalanx. Arterial Dopplers ordered last night did reveal extensive peripheral arterial disease throughout the arterial tree. No other open lesions are noted. No further proximal infection is noted. Protective sensation is diminished. There is no pain on palpation of this ulceration at bedside. Wound bed is fibrotic and dry. The wound itself measures 1 cm in diameter and again probes deep to the distal phalanx. Constitutional: WD/WN, vitals as above + ill appearing and + obese Eyes: PERRL, conjunctivae normal, anicteric sclerae ENMT: external ear and nose normal, oropharynx normal Mouth: + edentulous and + poor dentition Neck: trachea midline, no thyromegaly normal visual inspection Respiratory: normal respiratory effort; no respiratory distress Cardiovascular: Rate/Rhythm: regular rate and regular rhythm Vessels: + posterior tibial pulses abnormal and + dorsalis pedis pulses abnormal Chest (Breasts): Chest: normal inspection of chest Gastrointestinal (Abdomen): Inspection/Auscultation: abdomen normal to inspection Percussion/Palpation: + abdomen tender and abdomen soft Musculoskeletal: no cyanosis or clubbing, extremities motor strength 5/5 Head/Neck/Chest: normocephalic and head atraumatic Extremities: extremities normal to inspection Skin: + ulcer, + skin tightening, + wound, + s kin atrophy, + dry skin and + nails dystrophic Neurologic: awake; + abnormal sensation to monofilament and no focal motor deficits Psychiatric: A+Ox3, euthymic affect Results & Data Vital Signs (Past 12 Hours) Vital Signs Temp Pulse Pulse Resp BP Pulse Ox O2 Del Method 09/19/23 15:36 36.8 C 72 18 138/86 100 Room Air 09/19/23 15:00 81 09/19/23 10:47 36.7 C 87 18 104/69 97 Room Air 09/19/23 08:05 Room Air 09/19/23 07:24 36.9 C 89 18 116/76 97 Room Air 09/19/23 07:00 84
[2023-09-20] MEDS: FAMOTIDINE 20 MG TAB PO STA (03:09)
--- NOTE | 2023-09-20 07:38 | Pre Anesthesia Assessment ---
Date of Service September 20, 2023 Pre Sedation Assessment Vital Signs Temp Pulse Pulse Resp BP Pulse Ox O2 Del Method 09/20/23 07:10 99.1 F 80 14 131/68 96 Room Air 09/20/23 07:00 72 09/20/23 04:25 98.1 F 78 20 118/73 97 Room Air 09/19/23 23:37 98.4 F 72 20 128/76 95 Room Air 09/19/23 22:54 76 09/19/23 21:17 Room Air 09/19/23 20:23 99.3 F 60 18 134/79 93 Room Air 09/19/23 15:36 98.2 F 72 18 138/86 100 Room Air 09/19/23 15:00 81 09/19/23 10:47 98.1 F 87 18 104/69 97 Room Air 09/19/23 08:05 Room Air Cardiovascular + regular rate Respiratory + respiratory effort normal Pre-Sedation Airway Assessment Smoking Status: Current every day smoker Hx Sleep Apnea: No Hx Difficult Intubation: No Short, Thick Neck: No Thyromental Distance: > or= 3.5 Finger Breadths Oral Cavity: + Dentures Mallampati Class: III ASA: ASA3 Procedure Planning Contraindications for Sedation: none Current Medications Reviewed: Yes Notes The planned sedation has been discussed with the patient. Informed Consent was obtained. I have identified the patient, determined the appropriateness of sedation and have assessed the patient immediately prior to the procedure. All medicine(s) and interventions are by my order.
[2023-09-20] MEDS: LIDOCAINE 1% LOCAL 20 ML VIAL ONE (08:46)
[2023-09-20] MEDS: HEPARIN (PORCINE) 1000 UNIT/ML 10 ML (CATH LAB USE ONLY) ONE (08:47)
[2023-09-20] MEDS: niCARdipine HCL INJ 2.5 MG/ML 10 ML AMP ONE (08:49)
[2023-09-20] MEDS: MIDAZOLAM HCL 1 MG/ML 2ML VIAL ONE ×2 (08:50→09:09)
[2023-09-20] MEDS: fentaNYL citrate PF 100 MCG/2 ML VIAL ONE ×2 (08:51→09:09)
[2023-09-20] MEDS: NITROGLYCERIN/D5W 100MCG/ML 20ML SYR ONE (09:10)
[2023-09-20] MEDS: IODIXANOL (VISIPAQUE) 320 MG/ML 100ML IV ONE (09:12)
--- NOTE | 2023-09-20 09:19 | Post Anesthesia Assessment ---
Date of Service September 20, 2023 Post Sedation Assessment Vital Signs Temp Pulse Pulse Resp BP Pulse Ox O2 Del Method 09/20/23 07:10 99.1 F 80 14 131/68 96 Room Air 09/20/23 07:00 72 09/20/23 04:25 98.1 F 78 20 118/73 97 Room Air 09/19/23 23:37 98.4 F 72 20 128/76 95 Room Air 09/19/23 22:54 76 09/19/23 21:17 Room Air 09/19/23 20:23 99.3 F 60 18 134/79 93 Room Air 09/19/23 15:36 98.2 F 72 18 138/86 100 Room Air 09/19/23 15:00 81 09/19/23 10:47 98.1 F 87 18 104/69 97 Room Air Recovery Score Activity: Moves 4 extremities Respiration: Deep Breath/Cough Circulation: +/-20% PreAnes Value Consciousness: Fully Awake Oxygen Saturation: O2 needed for >90% Discharge Sedation Level of Care: Fast Track Phase II Post Sedation Plan On clinical assessment, the patient appears to have tolerated the sedation without complications. Patient is recovering as anticipated. Patient will continue to be monitored by nursing and may be discharged when sedation discharge criteria are met per below protocol. Upon Completions of procedure up to 15 minutes continue every 5 minute vital signs and the P.A.R. score; then discharge to a Phase I or Fast Track to Phase II per the following guidelines: * Discharge Patient to appropriate Phase II area if PAR is 8 or greater or return to pre- procedure baseline. The post - procedure orders will be as directed. * If PAR score is less than 8 or not return to pre-procedure baseline then patient will follow Phase I monitoring till PAR is reached for Phase II. The Phase I may be done in procedure room or may call to secure a Phase I area. * If naloxone or flumazenil are used for reversal, hold in Phase I for continued monitoring from when last reversal dose was given for a minimum of 60 minutes or longer pending the nurse and/or physician discretion of patient condition before discharge to Phase II. Please call the Sedation Physician to re-evaluate and complete post-note for discharge to Phase II area. Do NOT discharge from procedure sedation or Phase 1 until post- sedation evaluation note is complete by procedure /sedation MD Sedation Discharge Instructions to be given to the patient at discharge to home.
--- NOTE | 2023-09-20 09:20 | Endovascular Procedure Note ---
[facility] Endovascular Procedure Rpt Pre & Post Diagnosis Peripheral arterial disease I identified the patient and participated in the time-out.: Yes Procedure Operation Date: 09/20/23 07:00 Actual Procedures p Cineradiography w/Routine Exam - Liu Hay MD Surgeon Liu Hay MD Preassembler And Inspector Lynne Sidhu Estimated Blood Loss 25 Findings See Below Abdominal aorta--no significant aneurysmal or stenotic disease Right lower extremity-- -Common iliacwidely patent -External iliacwidely patent -Internal iliacpatent -CFAdiffuse calcified disease up to 50% -[id number]% ostial -[id number]% ostial stenosis Left lower extremity-- -Common iliacwidely patent -External iliacwidely patent -Internal iliacpatent -WTN42-70% distal stenosis prior to bifurcation -Profunda--widely patent -SFAcalcified diffuse mid disease up to 60%, heavily calcified 90% distal stenosis -[id number]% mid segment stenosis, 50% distal stenosis. Angulated/calcified 40% stenosis just prior to bifurcation with ELVIS. -ATAwidely patent into the foot -PTAwidely patent to the foot -Peronealwidely patent, tapers to ankle -DPA widely patent in the forefoot, medial/lateral plantar arteries patent with intact pedal arch Anesthesia Type RN Sedation Radiation Exposure (mGv) Radiation (mGy): 530 Contrast Contrast: 125 Complications none Disposition Disposition: PCU Description of Procedure Right WATER POLLUTION CONTROL TECHNICIAN access obtained under ultrasound guidance, short 5Fr sheath placed Abdominal aortogram and proximal left lower extremity angiogram performed with RIM catheter. Selective angiography with quick cross catheter placed in left SFA 6 Fr 45 cm destination sheath placed from right WATER POLLUTION CONTROL TECHNICIAN to left SFA. Mid to distal SFA disease crossed with glide advantage wire and quick cross support catheter. Angioplasty of mid to distal SFA with 4.0 balloon Intravascular lithotripsy (shockwave) with 5.0 balloon, 240 pulses Left mid popliteal back to mid SFA treated with 5.0 x 220 mm Lutonix drug- eluting balloon Residual mid to distal popliteal stenosis and earlymid SFA stenosis noted Mid to distal popliteal treated with 5.0 x 60 mm Lutonix drug-eluting balloon. Earlymid SFA dilated with same balloon. IA vasodilators administered Post procedure good angiographic result, no evidence of dissection and brisk 3 vessel run-off. Contrast used: 125 Moderate sedation: [id number] Access closure: StarClose Summary: 1. Left lower extremity --30-40% distal WATER POLLUTION CONTROL TECHNICIAN, diffuse calcified SFA disease up to 90% distally, sequential 60% popliteal lesions. Three-vessel distal runoff with intact DPA/plantar arteries and pedal arch. 2. Right lower extremity --diffuse calcified WATER POLLUTION CONTROL TECHNICIAN 50%, 70% ostial SFA, 50% ostial profunda. 3. Successful left SFA/popliteal intravascular lithotripsy (5.0 shockwave) and angioplasty with drug-eluting balloons (5.0 x 220, 5.0 x 60). Recommendations: Continue DAPT with ASA/Clopidogrel for 1 months Follow-up non-invasive vascular testing in 2 weeks. I attest to the content of the Intraoperative Record and any orders documented therein. Any exceptions are noted below. Vascular Charges Angiography/Venography Procedure 1: Angiography/Venography charges: [id number] Initial 3rd order or selective abd, pelvic, or LE branch Procedure 2: Angiography/Venography charges: [id number] Aortography, abd + b/l iliofem LE, catheter, radiological S&I Lower Extremity Interventions Procedure 1: Lower Extremity Intervention charges: [id number] Angioplasty, femoral, popliteal artery(s), unilateral Additional Services Procedure 1: Additional Services Charges: 24249 Ultrasound guidance - vascular access Procedure 2: Additional Services Charges: 06605 Moderate sedation initial 15 min Procedure 3: Additional Services Charges: 39671 Moderate sedation, each additional 15 min
[2023-09-20] MEDS: CLOPIDOGREL BISULFATE 300 MG TAB ONE (10:00)
[2023-09-20] MEDS: FAMOTIDINE 20 MG TAB PO SCH (10:36)
[2023-09-20] MEDS: SODIUM CHLORIDE 0.9% 1,000 ML IV SCH (10:36)
[2023-09-20] MEDS ORDERED: Nursing to Pharmacy Communication SCH (11:15)
[2023-09-20] MEDS: ACETAMINOPHEN 1,000 MG/100 ML VIAL IV STA (11:51)
[2023-09-20 11:58] LABS: Albumin Level 3.4 gm/dl (3.4-5.0); BUN Creatinine Ratio 10.6 (10-20); Bilirubin,Total 0.2 mg/dl (0.2-1.0); Calcium 8.9 mg/dl (8.6-10.3); Creatinine Clr Calc Pharmacy 51.9 ml/min; Est GFR (African American) 51.6 ml/min; Est GFR (Non-African American) 44.5 ml/min; Globulin 3.5 gm/dl (2.5-4.0); Potassium 4.8 mmol/L (3.5-5.1); Total Protein 6.9 gm/dl (6.0-8.3)
[2023-09-20] MEDS: PIPER/TAZO 4.5g in D5W MINI-B 100 ML IV ONE (12:25)
[2023-09-20] MEDS: INSULIN ASPART PER UNIT CHARGE SC SCH (12:38)
--- NOTE | 2023-09-20 14:58 | Infectious Disease Consult ---
Date of Service September 20, 2023 Telehealth Information I performed this visit using a real-time telehealth connection between my location and the patients location ([facility]). After connecting through interactive tele-video, patient was identified by name and date of and/or wristband check.Patient (or authorized healthcare malt liquors sales representative) was informed that this was a telemedicine visit and it was being conducted confidentially over secure lines. My office door was closed and no one else was present in the room with me.Patient (or authorized healthcare malt liquors sales representative) provided consent to proceed with the visit, expressed an understanding of privacy and security of the telemedicine visit, and gave permission to have a hospital malt liquors sales representative in the room in order to assist with the visit and to conduct portions of the visit, as needed. I informed the patient (or authorized healthcare malt liquors sales representative) that I reviewed their record and presented the opportunity for them to ask any questions regarding the visit today. The patient agreed to participate. Assessment & Plan (1) Acute osteomyelitis of toe of left foot: Plan: 43-year-old female with a acute osteomyelitis of the left foot, 4th digit currently status post angioplasty and planned for amputation with Podiatry either today or tomorrow. She has been started on broad-spectrum antibiotics with a superficial culture of Pseudomonas aeruginosa. In an ideal scenario patient would be off antibiotics for approximately 2 weeks prior to amputation to have the best chance at isolation of an organism to avoid subjecting patient to long-term broad-spectrum antibiotics for osteomyelitis, patient has already received multiple days of broad-spectrum. Given this would continue with broad- spectrum antibiotics and remain hopeful of bacterial isolation. Regarding the YENNI of the Pseudomonas culture the current FDA in CLSI recommended break points are within range for current isolate to be sensitive to Zosyn and in this case is reasonable and appropriate to continue. Would recommend discontinuation of meropenem and continue with Zosyn, vancomycin Pending cultures intraoperatively. - Vancomycin IV, per pharmacy - Zosyn 4.5 g Q 8 hours - discontinue meropenem - final recommendations pending surgical cultures /amount of infection removed - Fluconazole 150 mg p.o. once if patient describes symptoms consistent with Diana vulvovaginitis. Appreciate consultation, please do not hesitate to reach out for any further questions or concerns. Ronald Hartman MD PGY4 Infectious Disease History of Present Illness History of Present Illness 43 year old female presenting for a diabetic left foot wound as recommended from her air sampler, being treated for a 4th digit wound infection through the wound clinic. Was initiated on ciprofloxacin starting 09/17, planned amputation. Past medical history includes CKD, diabetes mellitus type 2, history of IV drug use, hepatitis-C, seizure disorder on Keppra, peripheral vascular disease. Left foot x-ray consistent with osteomyelitis of the 4th toe, patient for planned vascularization procedure due to significant PVD that was completed today with amputation for Podiatry taking place afterwards. Patient was initially started on Zosyn, daptomycin. Superficial wound culture with Pseudomonas aeruginosa, patient was switched to meropenem due to YENNI. patient also states that she has a history of yeast infections when placed on antibiotics. Allergies Allergy/AdvReac Type Severity Reaction Status Date / Time lidocaine Allergy Intermediate HIVES Verified 09/18/23 15:04 procaine Allergy Intermediate HIVES Verified 09/18/23 15:04 strawberry Allergy Intermediate HIVES Verified 09/18/23 15:04 Penicillins Allergy Mild HAD NO Verified 09/18/23 15:04 PROBLEM WITH ZOSYN mushroom Allergy Unknown Unknown Verified 09/18/23 15:04 onion Allergy Unknown Unknown Verified 09/18/23 15:04 COVID-19 (SARS-CoV-2) AdvReac Severe stopped Verified 09/18/23 15:04 vaccine, zoraida breathing next day cephalexin AdvReac Intermediate YEAST Verified 09/18/23 15:04 INFECTIONS tramadol AdvReac Intermediate SEIZURES Verified 09/18/23 15:04 azithromycin AdvReac Mild STOMACH Verified 09/18/23 15:04 PAIN Home Medications Medication Instructions Recorded Confirmed Type albuterol sulfate 2.5 mg/3 mL 2.5 mg inhalation Q4 PRN 07/10/21 09/18/23 History (0.083 %) solution for nebulization WHEEZE/COUGH albuterol sulfate 90 mcg/actuation 2 puff inhalation Q4 PRN cough or 07/10/21 09/18/23 History aerosol inhaler wheezing atorvastatin 80 mg tablet 80 mg PO QAM 07/10/21 09/18/23 History buspirone 15 mg tablet 15 mg PO AMHS 07/10/21 09/18/23 History clopidogrel 75 mg tablet 75 mg PO DAILY 07/10/21 09/18/23 History cyclobenzaprine 10 mg tablet 10 mg PO BID 07/10/21 09/18/23 History levetiracetam 500 mg tablet 500 mg PO AMHS 07/10/21 09/18/23 History lisinopril 5 mg tablet 5 mg PO QAM 07/10/21 09/18/23 History metformin 1,000 mg tablet 1,000 mg PO BID 07/10/21 09/18/23 History metoprolol succinate 25 mg 25 mg PO DAILY 07/10/21 09/18/23 History tablet,extended release 24 hr polyethylene glycol 3350 17 gram 17 g PO DAILY PRN Constipation 07/10/21 09/18/23 History oral powder packet (Miralax) potassium chloride 20 mEq 20 meq PO QAM 07/10/21 09/18/23 History tablet,extended release(part/cryst) (Klor-Con M) torsemide 20 mg tablet 20 mg PO DAILY 07/10/21 09/18/23 History trazodone 50 mg tablet 100 mg PO HS 07/10/21 09/18/23 History aspirin 81 mg tablet,delayed 81 mg PO DAILY 03/03/22 09/18/23 History release famotidine 20 mg tablet 20 mg PO BID PRN Heartburn 03/03/22 09/18/23 History fluticasone furoate 200 1 inh inhalation QAM 03/03/22 09/18/23 History mcg-vilanterol 25 mcg/dose inhalation powder (Breo Ellipta) gabapentin 300 mg capsule 600 mg PO BID@0800,1400 03/03/22 09/18/23 History nitroglycerin 0.4 mg sublingual 0.4 mg sublingual DAILY PRN Chest 03/03/22 09/18/23 History tablet Pain ferrous sulfate 325 mg (65 mg 325 mg PO Q2D 04/22/23 09/18/23 History iron) tablet gabapentin 300 mg capsule 900 mg PO HS 04/22/23 09/18/23 History meclizine 25 mg tablet 25 mg PO TID PRN Dizziness 04/22/23 09/18/23 History buprenorphine 8 mg-naloxone 2 mg 1 tab sublingual DAILY 05/28/23 09/18/23 History sublingual tablet dexamethasone 6 mg tablet 6 mg PO DAILY #7 tabs 06/02/23 09/18/23 Rx escitalopram oxalate 20 mg tablet 20 mg PO QAM 08/19/23 09/18/23 History collagenase clostridium histo. 250 1 applic topical DAILY #30 grams 09/09/23 09/18/23 Rx unit/gram topical ointment (Santyl) ciprofloxacin HCl 500 mg tablet 500 mg PO BID 14 days #28 tabs 09/11/23 09/18/23 Rx Patient History Medical History AJIT (acute kidney injury) Methamphetamine abuse Anemia, iron deficiency History of drug abuse Hepatitis C "Antibiotic screen positive, quantitative RNA positive 08/30/17" Surgical History S/P coronary artery stent placement History of cardiac cath 2017- 1 ROJAS to ramus, 2 ROJAS to L circumflex. 40-50% plaque to LAD 2018- distal disease (80%) within PDA Family History Other Diabetes Heart disease Hypertension Kidney stones Seizures Social History Smoking Status: Current every day smoker Tobacco Type: Cigarettes Cigarettes Per Day: 10; Second Hand Exposure: Yes; Do You Dip or Chew Tobacco: No; Hx Alcohol Use: No Hx Substance Use: No Preferred Language: Armenian Communication Ability: Effective Visual Impairment: No Limitations Hearing Ability: Normal Manager Decision Support Required: No Beliefs That Will Affect Care: None marital status: Single Current Living Situation: Alone Current Living Situation Comment: home don How many Children do You have: 1 Other Information That Helps Us Care for You: No Feels Safe at Home: Yes Safety Concerns: Feels Safe At This Time Assistive Devices: Oxygen - at Night and Walker Review of Systems CONSTITUTIONAL: Denies weight loss, fever and chills. HEENT: Denies changes in vision and hearing. RESPIRATORY: Denies SOB and cough. CV: Denies palpitations and CP. GI: Denies abdominal pain, nausea, vomiting and diarrhea. : Denies dysuria and urinary frequency. MSK: Denies myalgia and joint pain. SKIN: Denies rash and pruritus. NEUROLOGICAL: Denies headache and syncope PSYCHIATRIC: Denies recent changes in mood. Denies anxiety and depression. Results & Data Vital Signs (Past 12 Hours) Vital Signs Temp Pulse Pulse Resp BP Pulse Ox O2 Del Method 09/20/23 14:47 36.5 C 85 17 109/70 98 Room Air 09/20/23 13:08 82 16 152/81 H 97 Room Air 09/20/23 12:08 85 19 123/85 97 Room Air 09/20/23 11:38 87 16 136/80 100 Room Air 09/20/23 11:10 87 17 145/87 H 96 Room Air 09/20/23 10:55 94 H 20 128/91 96 Room Air 09/20/23 10:40 81 20 148/85 H 96 Room Air 09/20/23 10:25 36.6 C 102 H 20 147/88 H 96 Room Air 09/20/23 10:05 36.8 C 84 18 132/84 95 Room Air 09/20/23 09:50 36.8 C 85 18 129/81 96 Room Air 09/20/23 09:20 36.8 C 86 18 134/68 94 Room Air 09/20/23 07:10 37.3 C 80 14 131/68 96 Room Air 09/20/23 07:00 72 09/20/23 04:25 36.7 C 78 20 118/73 97 Room Air Diagnostic Findings 09/18/23 12:48 Aerobic Blood Culture - Preliminary Blood No growth in Aerobic bottle after 48 hours. Anaerobic Blood Culture - Preliminary No growth in Anaerobic bottle after 48 hours. 09/18/23 16:19 Aerobic Blood Culture - Preliminary Blood No growth in Aerobic bottle after 24 hours. Anaerobic Blood Culture - Final 09/20/23 09/20/23 09/20/23 11:19 11:17 08:36 Activ Coag Time Kaolin 244 H Sodium 138 Potassium 4.8 Chloride 111 H Carbon Dioxide 21 Anion Gap 6 BUN 15 Creatinine 1.42 H Est Cr Clr Drug Dosing 51.9 Est GFR ( Amer) 51.6 Est GFR (Non-Af Amer) 44.5 BUN/Creatinine Ratio 10.6 Glucose 97 POC Glucose 120 H Calcium 8.9 Total Bilirubin 0.2 AST 16 ALT 10 Alkaline Phosphatase 82 Total Creatine Kinase Total Protein 6.9 Albumin 3.4 Globulin 3.5 Albumin/Globulin Ratio 1.0 09/20/23 09/19/23 09/19/23 05:46 23:12 17:22 Activ Coag Time Kaolin Sodium Potassium Chloride Carbon Dioxide Anion Gap BUN Creatinine Est Cr Clr Drug Dosing Est GFR ( Amer) Est GFR (Non-Af Amer) BUN/Creatinine Ratio Glucose POC Glucose 98 120 H 126 H Calcium Total Bilirubin AST ALT Alkaline Phosphatase Total Creatine Kinase Total Protein Albumin Globulin Albumin/Globulin Ratio 09/19/23 16:35 Activ Coag Time Kaolin Sodium Potassium Chloride Carbon Dioxide Anion Gap BUN Creatinine Est Cr Clr Drug Dosing Est GFR ( Amer) Est GFR (Non-Af Amer) BUN/Creatinine Ratio Glucose POC Glucose Calcium Total Bilirubin AST ALT Alkaline Phosphatase Total Creatine Kinase 120 Total Protein Albumin Globulin Albumin/Globulin Ratio Laboratory Results WBC 9.80 K/ul (4.8-10.8) 09/19/23 07:33 RBC 3.34 M/uL (4.20-5.40) L 09/19/23 07:33 Hgb 7.7 g/dl (12.0-16.0) L 09/19/23 07:33 Hct 25.5 % (37.0-47.0) L 09/19/23 07:33 MCV 76.3 fL (80.0-100.0) L 09/19/23 07:33 MCH 23.1 pg (25.0-34.0) L 09/19/23 07:33 MCHC 30.2 g/dL (32.0-36.0) L 09/19/23 07:33 RDW Std Deviation 54.6 fL (36.4-46.3) H 09/19/23 07:33 RDW Coeff of Hannah 19.8 % (11.5-14.5) H 09/19/23 07:33 Plt Count 351 K/uL (130-400) 09/19/23 07:33 MPV 9.8 fL (9.4-12.4) 09/19/23 07:33 Immature Gran % (Auto) 0.7 % 09/19/23 07:33 Neut % (Auto) 63.8 % 09/19/23 07:33 Lymph % (Auto) 24.7 % 09/19/23 07:33 [place] % (Auto) 6.0 % 09/19/23 07:33 Eos % (Auto) 3.9 % 09/19/23 07:33 Baso % (Auto) 0.9 % 09/19/23 07:33 Neut # (Auto) 6.25 K/uL (1.40-6.50) 09/19/23 07:33 Lymph # (Auto) 2.42 K/uL (1.20-3.40) 09/19/23 07:33 [place] # (Auto) 0.59 K/uL (0.11-0.59) 09/19/23 07:33 Eos # (Auto) 0.38 K/uL (0.00-0.50) 09/19/23 07:33 Baso # (Auto) 0.09 K/uL (0.00-0.20) 09/19/23 07:33 Immature Gran # (Auto) 0.07 K/uL (0.01-0.20) 09/19/23 07:33 Hypochromasia Present 09/19/23 07:33 ESR 71 mm/hr (0-20) H 09/18/23 12:48 Activ Coag Time Kaolin 244 SECONDS (94-140) H 09/20/23 08:36 Sodium 138 mmol/L (136-145) 09/20/23 11:19 Potassium 4.8 mmol/L (3.5-5.1) 09/20/23 11:19 Chloride 111 mmol/L (98-107) H 09/20/23 11:19 Carbon Dioxide 21 mmol/L (21-32) 09/20/23 11:19 Anion Gap 6 (3-11) 09/20/23 11:19 BUN 15 mg/dl (6-23) 09/20/23 11:19 Creatinine 1.42 mg/dl (0.6-1.2) H 09/20/23 11:19 Est Cr Clr Drug Dosing 51.9 ml/min 09/20/23 11:19 Est GFR ( Amer) 51.6 ml/min 09/20/23 11:19 Est GFR (Non-Af Amer) 44.5 ml/min 09/20/23 11:19 BUN/Creatinine Ratio 10.6 (10-20) 09/20/23 11:19 Glucose 97 mg/dl (70-99(Fasting)) 09/20/23 11:19 POC Glucose 120 mg/dl (70-99) H 09/20/23 11:17 Lactate 1.1 mmol/L (0.4-2.0) 09/18/23 16:20 Calcium 8.9 mg/dl (8.6-10.3) 09/20/23 11:19 Magnesium 1.9 mg/dl (1.7-2.4) 09/19/23 07:33 Total Bilirubin 0.2 mg/dl (0.2-1.0) 09/20/23 11:19 AST 16 U/L (13-39) 09/20/23 11:19 ALT 10 U/L (7-52) 09/20/23 11:19 Alkaline Phosphatase 82 U/L (34-104) 09/20/23 11:19 Total Creatine Kinase 120 U/L (26-192) 09/19/23 16:35 C-Reactive Protein 1.89 mg/dl (0-0.5) H 09/18/23 12:48 Total Protein 6.9 gm/dl (6.0-8.3) 09/20/23 11:19 Albumin 3.4 gm/dl (3.4-5.0) 09/20/23 11:19 Globulin 3.5 gm/dl (2.5-4.0) 09/20/23 11:19 Albumin/Globulin Ratio 1.0 (0.9-2) 09/20/23 11:19 Procalcitonin < 0.02 ng/ml (0-0.5) 09/19/23 07:33 Nasal Screen MRSA (PCR) Negative (Negative) 09/18/23 21:24 Impressions Foot X-Ray 09/18/23 12:27 XR foot LT min 3V routine CLINICAL HISTORY: pain TECHNIQUE: 3 views of the left foot were obtained. Comparison: Comparison is made to foot radiographs 09/04/2023 FINDINGS: There is erosion of the distal phalanx of the fourth digit with a few bony fragments noted at the tip. The joint spaces are well preserved. Soft tissue swelling is seen in the fourth digit. IMPRESSION: Findings concerning for osteomyelitis of the fourth digit distal phalanx with prominent bony erosion. ACT 112: Negative or not required by law. Electronically signed by: Moi Ring M.D. 09/18/2023 1:47 PM Duplex Scan Lower Extremity Artery 09/18/23 22:06 US arterial duplex LE LT CLINICAL HISTORY: Nonhealing wound/Osteomyelitis TECHNIQUE: Real-time grayscale and color and spectral Doppler ultrasound imaging of the left lower extremity arteries was performed. Measurements calculated based on NASCET criteria. COMPARISON: None available at the time of this dictation. FINDINGS: LEFT: Common femoral artery: Triphasic waveforms. Peak systolic velocity (PSV) 322 cm/s. Deep femoral artery: Monophasic waveforms. PSV 119 cm/s. Superficial femoral artery: Monophasic waveforms. PSV 320 cm/s. Popliteal artery: Monophasic waveforms. PSV 99 cm/s. Anterior tibial artery: Monophasic waveforms. PSV 188 cm/s. Posterior tibial artery: Monophasic waveforms. PSV 58 cm/s. Peroneal artery: Monophasic waveforms. PSV 46 cm/s. Dorsalis pedis: Monophasic waveforms. PSV 66 cm/s. Shadowing plaques are seen throughout the left lower extremity, limiting evaluation. Multiple sites of increased velocity are seen. IMPRESSION: Multiple foci of increased velocity and monophasic waveforms, compatible with hemodynamically significant vascular disease. ACT 112: Negative or not required by law. Electronically signed by: Moi Ring M.D. 09/19/2023 7:28 AM
[2023-09-20] MEDS ORDERED: MIDAZOLAM HCL 1 MG/ML 2ML VIAL ONE (15:17)
[2023-09-20] MEDS ORDERED: fentaNYL citrate PF 100 MCG/2 ML VIAL ONE (15:17)
[2023-09-20] MEDS ORDERED: ONDANSETRON INJ 2 MG/ML 2 ML VIAL ONE (15:17)
[2023-09-20] MEDS ORDERED: LIDOCAINE 2% 2 ML VIAL/AMP(20MG/ML) INFIL ONE (15:17)
[2023-09-20] MEDS ORDERED: PROPOFOL IV EMULSION 10 MG/ML 20 ML VIAL IV ONE (15:17)
[2023-09-20] MEDS ORDERED: VANCOMYCIN CONSULT ACTIVE PRN (15:46)
--- NOTE | 2023-09-20 15:50 | Hospitalist Progress Note ---
Date of Service September 20, 2023 Assessment & Plan (1) Diabetic infection of left foot: (2) Peripheral neuropathy: (3) AJIT (acute kidney injury): (4) Polysubstance abuse: (5) HTN (hypertension): (6) HLD (hyperlipidemia): (7) Coronary artery disease: (8) Diabetes mellitus, type 2: (9) History of DVT (deep vein thrombosis): (10) CKD (chronic kidney disease), stage III: (11) Diabetic foot ulcer: (12) History of seizure: Plan Ms. 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 She has been being followed as an outpatient for a 4th toe wound infection through the wound clinic as well. Her wound has been dressed with Aquacel Ag. She was started on Ciprofloxacin on 09/17. Her original injury to her toe occurred in July 2023 and has been worsening since. An MRI was scheduled for September/2023 to evaluate for osteomyelitis and she was referred to Dr. Boyd for surgical consultation which was to take place tomorrow 09/18. Additionally patient was to have arterial venous studies done on 10/03/2023. Additional past medical history includes DVT, eni-rflehxu-[id number] diabetes, CKD, meth use, history of IVDA (last use 6 years ago), hepatitis C, h/o seizures (On Keppra). Her last seizure was a few years ago. She takes Keppra compliantly. Left foot x-ray: Findings concerning for osteomyelitis of the fourth digit distal phalanx with prominent bony erosion. Patient started on meropenem for pseudomonas/klebsiella given susceptibility YENNI <16 for zosyn, <1 with miriam; however, ID highlighted CLSI breakpoints which indicate that Zosyn would remain the appropriate choice. Vanc/Zosyn started Podiatry and Vascular on consult: planning revascularization and amputation. #Sepsis secondary to diabetic infection of left 4th toe: POA, resolved #osteomyelitis of 4th toe #Peripheral neuropathy: Foot x-ray left foot concerning of osteomyelitis fourth digit proximal bony erosion. IV Zosyn started in ED; continue for now and adjust based on wound culture and blood culture results Follows wound clinic outpatient continue while inpatient here Foot x-ray : Findings concerning for osteomyelitis of the fourth digit distal phalanx with prominent bony erosion. Takes gabapentin; continue Podiatry consult placed -amputation likely Saturday Lactate 1.1 blood cultures NGTD ID consult D/C meropenem, Zosyn and Vanc per ID #PAD with left PATIENT SCHEDULER/SFA/popliteal disease on US -Revascularization 09/19, dapt for 1 months 1. Left lower extremity --30-40% distal PATIENT SCHEDULER, diffuse calcified SFA disease up to 90% distally, sequential 60% popliteal lesions. Three-vessel distal runoff with intact DPA/plantar arteries and pedal arch. 2. Right lower extremity --diffuse calcified PATIENT SCHEDULER 50%, 70% ostial SFA, 50% ostial profunda. 3. Successful left SFA/popliteal intravascular lithotripsy (5.0 shockwave) and angioplasty with drug-eluting balloons (5.0 x 220, 5.0 x 60). Follow-up non-invasive vascular testing in 2 weeks. #CKD III Chronic serum creatinine 1.63; baseline 1.57-1.90 #HTN: Chronic Takes lisinopril; continue #CAD: Chronic Status post two-vessel ROJAS placed 10/2016 Takes aspirin plus Plavix; resume #Say-prbquac-hqfbqyqqw diabetic: Chronic Takes metformin; hold patient placed on SSI ACHS 6.0% 09/18 #COPD: Chronic Takes Breo-Ellipta;continue #History of DVT: Chronic Years ago not on any anticoagulation #History of IVDA: Chronic Reports last use 6 years ago Takes Suboxone; continue #Depression: Chronic Takes Lexapro; continue Disposition: PCP: Dr. Iverson CODE STATUS: Full code VTE prophylaxis: heparin sq Admission and Anticipated Discharge Date Admission Date: September 18, 2023 Subjective Patient evaluated post revascularization Reports feeling tired and with back pain--the pain started prior to the procedure and is consistent with her chronic pain She denies any other acute concerns Physical Exam Constitutional: WD/WN, vitals as above laying supine Respiratory: normal respiratory effort, lungs clear to auscultation Cardiovascular: RRR, no murmur, no edema Gastrointestinal (Abdomen): normal bowel sounds, soft, nontender, no hepatosplenomegaly Results & Data Results & Data Vital Signs (Past 12 Hours) Vital Signs Temp Pulse Pulse Resp BP Pulse Ox O2 Del Method 09/20/23 14:47 36.5 C 85 17 109/70 98 Room Air 09/20/23 13:08 82 16 152/81 H 97 Room Air 09/20/23 12:08 85 19 123/85 97 Room Air 09/20/23 11:38 87 16 136/80 100 Room Air 09/20/23 11:10 87 17 145/87 H 96 Room Air 09/20/23 10:55 94 H 20 128/91 96 Room Air 09/20/23 10:40 81 20 148/85 H 96 Room Air 09/20/23 10:25 36.6 C 102 H 20 147/88 H 96 Room Air 09/20/23 10:05 36.8 C 84 18 132/84 95 Room Air 09/20/23 09:50 36.8 C 85 18 129/81 96 Room Air 09/20/23 09:20 36.8 C 86 18 134/68 94 Room Air 09/20/23 07:10 37.3 C 80 14 131/68 96 Room Air 09/20/23 07:00 72 09/20/23 04:25 36.7 C 78 20 118/73 97 Room Air Laboratory Results [facility] 09/20/23 11:19 Sodium 138 Potassium 4.8 Chloride 111 H Carbon Dioxide 21 BUN 15 Creatinine 1.42 H Glucose 97 Calcium 8.9 Cardiac Enzymes 09/19/23 Range/Units 16:35 Total Creatine Kinase 120 (26-192) U/L Liver Function 09/20/23 Range/Units 11:19 Total Bilirubin 0.2 (0.2-1.0) mg/dl AST 16 (13-39) U/L ALT 10 (7-52) U/L Alkaline Phosphatase 82 (34-104) U/L Albumin 3.4 (3.4-5.0) gm/dl Medications Administered Home Medications Medication Instructions Recorded Confirmed Last Taken albuterol sulfate 2.5 mg/3 mL 2.5 mg inhalation Q4 PRN 07/10/21 09/18/23 Unknown (0.083 %) solution for nebulization WHEEZE/COUGH albuterol sulfate 90 mcg/actuation 2 puff inhalation Q4 PRN cough or 07/10/21 09/18/23 Unknown aerosol inhaler wheezing atorvastatin 80 mg tablet 80 mg PO QAM 07/10/21 09/18/23 05/28/23 buspirone 15 mg tablet 15 mg PO AMHS 07/10/21 09/18/23 05/28/23 08:00 clopidogrel 75 mg tablet 75 mg PO DAILY 07/10/21 09/18/23 05/28/23 cyclobenzaprine 10 mg tablet 10 mg PO BID 07/10/21 09/18/23 05/28/23 08:00 levetiracetam 500 mg tablet 500 mg PO AMHS 07/10/21 09/18/23 05/28/23 08:00 lisinopril 5 mg tablet 5 mg PO QAM 07/10/21 09/18/23 05/28/23 metformin 1,000 mg tablet 1,000 mg PO BID 07/10/21 09/18/23 05/28/23 08:00 metoprolol succinate 25 mg 25 mg PO DAILY 07/10/21 09/18/23 05/28/23 tablet,extended release 24 hr polyethylene glycol 3350 17 gram 17 g PO DAILY PRN Constipation 07/10/2108/2805/28/23 oral powder packet (Miralax) potassium chloride 20 mEq 20 meq PO QAM 07/10/21 09/18/23 05/28/23 tablet,extended release(part/cryst) (Klor-Con M) torsemide 20 mg tablet 20 mg PO DAILY 07/10/21 09/18/23 05/28/23 trazodone 50 mg tablet 100 mg PO HS 07/10/21 09/18/23 05/27/23 aspirin 81 mg tablet,delayed 81 mg PO DAILY 03/03/22 09/18/23 05/28/23 release famotidine 20 mg tablet 20 mg PO BID PRN Heartburn 03/03/22 09/18/23 Unknown fluticasone furoate 200 1 inh inhalation QA 03/03/22 09/18/23 05/28/23 mcg-vilanterol 25 mcg/dose inhalation powder (Breo Ellipta) gabapentin 300 mg capsule 600 mg PO BID@0800,1400 03/03/22 09/18/23 05/28/23 08:00 nitroglycerin 0.4 mg sublingual 0.4 mg sublingual DAILY PRN Chest 03/03/22 09/18/23 05/28/23 tablet Pain ferrous sulfate 325 mg (65 mg 325 mg PO Q2D 04/22/23 09/18/23 05/27/23 iron) tablet gabapentin 300 mg capsule 900 mg PO HS 1209/18/23 05/27/23 meclizine 25 mg tablet 25 mg PO TID PRN Dizziness 04/22/23 09/18/23 Unknown buprenorphine 8 mg-naloxone 2 mg 1 tab sublingual DAILY 05/28/23 09/18/23 05/27/23 sublingual tablet dexamethasone 6 mg tablet 6 mg PO DAILY #7 tabs 06/02/23 09/18/23 Unknown escitalopram oxalate 20 mg tablet 20 mg PO QAM 08/19/23 09/18/23 Unknown collagenase clostridium histo. 250 1 applic topical DAILY #30 grams 09/09/23 09/18/23 Unknown unit/gram topical ointment (Santyl) ciprofloxacin HCl 500 mg tablet 500 mg PO BID 14 days #28 tabs 09/11/23 09/18/23 Unknown Active Medications Generic Name Dose Route Start Last Admin Trade Name Freq PRN Reason Stop Dose Admin Aspirin 81 mg 09/19/23 09:00 09/20/23 10:35 Aspirin 81 Mg Ectab PO 10/19/23 08:59 81 mg DAILY WILMA Administration Buprenorphine/Naloxone 1 tab 09/19/23 09:00 09/20/23 10:46 Buprenorphine/Naloxone 8/2 Mg Tab SL 10/19/23 08:59 1 tab DAILY WILMA Administration Buspirone HCl 15 mg 09/18/23 21:00 09/20/23 10:35 Buspirone 15 Mg Tab PO 10/18/23 20:59 15 mg AMHS WILMA Administration Clopidogrel Bisulfate 75 mg 09/19/23 09:00 09/19/23 08:06 Clopidogrel Bisulfate 75 Mg Tab PO 10/19/23 08:59 75 mg DAILY WILMA Administration Cyclobenzaprine HCl 10 mg 09/18/23 21:00 09/20/23 10:35 Cyclobenzaprine Hcl 10 Mg Tab PO 10/18/23 20:59 10 mg BID WILMA Administration Escitalopram Oxalate 20 mg 09/19/23 09:00 09/20/23 10:34 Escitalopram Oxalate 20 Mg Tab PO 10/19/23 08:59 20 mg QAM WILMA Administration Famotidine 20 mg 09/20/23 09:00 09/20/23 10:36 Famotidine 20 Mg Tab PO 09/24/23 08:59 20 mg QAM WILMA Administration Ferrous Sulfate 325 mg 09/19/23 09:00 09/19/23 08:08 Ferrous Sulfate 325 Mg Tab PO 10/19/23 08:59 325 mg Q2D@0900 WILMA Administration Fluticasone/Vilanterol 1 puffs 09/19/23 09:00 09/20/23 10:34 Fluticasone/Vilanterol 200/25mcg 14 Puffs/Inhaler INH 10/19/23 08:59 1 puffs QAM WILMA Administration Gabapentin 600 mg 09/19/23 08:00 09/20/23 13:32 Gabapentin 300 Mg Cap PO 10/19/23 07:59 600 mg BID@0800,1400 WILMA Administration Gabapentin 900 mg 09/18/23 21:00 09/19/23 20:01 Gabapentin 300 Mg Cap PO 10/18/23 20:59 900 mg HS WILMA Administration Heparin Sodium (Porcine) 5,000 units 09/18/23 21:00 09/19/23 08:07 Heparin Sod 5,000 Unit/0.5 Ml Vial SQ 10/18/23 20:59 Not Given Q12 WILMA Insulin Aspart 0 units 09/20/23 11:30 09/20/23 12:38 Insulin Aspart Per Unit Charge SC 10/18/23 19:59 Not Given ACHS WILMA Levetiracetam 500 mg 09/18/23 21:00 09/20/23 10:35 Levetiracetam 500 Mg Tab PO 10/18/23 20:59 500 mg AMHS WILMA Administration Lisinopril 5 mg 09/19/23 09:00 09/20/23 10:34 Lisinopril 5 Mg Tab PO 10/19/23 08:59 5 mg QAM WILMA Administration Metoprolol Succinate 25 mg 09/19/23 09:00 09/20/23 10:34 Metoprolol Succ 25mg Ext Rel Tab PO 10/19/23 08:59 25 mg DAILY WILMA Administration Morphine Sulfate 2 mg 09/18/23 17:36 09/20/23 05:53 Morphine Sulfate 2 Mg/Ml Carp IV 10/02/23 17:35 2 mg Q4H PRN Administration Severe Pain (Scale 7, 8, 9,10) Potassium Chloride 20 meq 09/19/23 09:00 09/20/23 10:35 Potassium Chloride Crtab 20 Meq Tabcr PO 10/19/23 08:59 20 meq QAM WILMA Administration Trazodone HCl 100 mg 09/18/23 21:00 09/19/23 20:01 Trazodone Hcl 100 Mg Tab PO 10/18/23 20:59 100 mg HS WILMA Administration (2) Peripheral neuropathy Peripheral neuropathy type: polyneuropathy associated with underlying disease Qualified Code(s): G63 - Polyneuropathy in diseases classified elsewhere (8) Diabetes mellitus, type 2 Diabetes mellitus complication status: with unspecified complications Diabetes mellitus group home insulin use: without group home use Qualified Code(s): E11.8 - Type 2 diabetes mellitus with unspecified complications (11) Diabetic foot ulcer Diabetic foot ulcer location: toe Diabetes mellitus type: type 2 Laterality: unspecified laterality Non-pressure ulcer stage: with fat layer exposed Qualified Code(s): E11.621 - Type 2 diabetes mellitus with foot ulcer; L97.502 - Non-pressure chronic ulcer of other part of unspecified foot with fat layer exposed
[2023-09-20] MEDS: VANCOMYCIN HCL 2,000 MG in SODIUM CHLORIDE 0.9% 500 ML IV ONE (16:20)
[2023-09-20] MEDS: PIPER/TAZO 4.5g in D5W MINI-B 100 ML IV SCH (17:53)
--- NOTE | 2023-09-20 21:09 | Podiatry Progress Note ---
Date of Service September 20, 2023 Assessment & Plan (1) Acute osteomyelitis of toe of left foot: (2) Diabetic infection of left foot: (3) Peripheral neuropathy: (4) Diabetic foot ulcer: Plan - Pt examined and evaluated. - Plan for fourth toe amputation tomorrow. Delaying due to PO drink prior to surgery today. - Could have performed under local anesthesia only, but patient deferred until she could be safely sedated. - Pulses now palpable on clinical exam; should improve chances of healing uneventfully. - Will see in morning prior to amputation. Admission and Anticipated Discharge Date Admission Date: September 18, 2023 Subjective Pt seen at bedside. No new concerns. Had successful revasc with Dr. Hay this morning. Now, doing well postoperatively. She did have a large soda just a little bit ago. Also, had versed, with the revasc, prior to consent of this planned digital amputation. Otherwise, no new concerns. Review of Systems Constitutional: + fever and + fatigue; no chills Eyes: no problem reported Ear, Nose, Mouth, Throat: no problem reported Respiratory: no problem reported Cardiovascular: + edema; no problem reported Gastrointestinal: no nausea, no vomiting and no problem reported Genitourinary: no problem reported Musculoskeletal: no problem reported Integumentary: + non-healing lesions, + skin ulcer, + w ounds and + erythema Neurologic: + loss of sensation, + numbness and + pa resthesia; no generalized weakness Psychiatric: no problem reported Physical Exam Physical Exam: lower extremity focused exam: DP/PT pulses 1/4 bilaterally. Advanced trophic changes are noted to the bilateral lower extremity with distal cooling, atrophic skin, dystrophic nails, and this ulceration to the left fourth toe. The ulceration probes to bone immediately along the distal aspect of the toe. There is no randy purulence, though the toe is diffusely erythematous and edematous. No ascending cellulitis is noted. Plain film radiographs do reveal essentially complete destruction of the fourth distal phalanx. Arterial Dopplers ordered last night did reveal extensive peripheral arterial disease throughout the arterial tree. No other open lesions are noted. No further proximal infection is noted. Protective sensation is diminished. There is no pain on palpation of this ulceration at bedside. Wound bed is fibrotic and dry. The wound itself measures 1 cm in diameter and again probes deep to the distal phalanx. Constitutional: WD/WN, vitals as above + ill appearing and + obese Eyes: PERRL, conjunctivae normal, anicteric sclerae ENMT: external ear and nose normal, oropharynx normal Mouth: + edentulous and + poor dentition Neck: trachea midline, no thyromegaly normal visual inspection Respiratory: normal respiratory effort; no respiratory distress Cardiovascular: Rate/Rhythm: regular rate and regular rhythm Vessels: + posterior tibial pulses abnormal and + dorsalis pedis pulses abnormal Chest (Breasts): Chest: normal inspection of chest Gastrointestinal (Abdomen): Inspection/Auscultation: abdomen normal to inspection Percussion/Palpation: + abdomen tender and abdomen soft Musculoskeletal: no cyanosis or clubbing, extremities motor strength 5/5 Head/Neck/Chest: normocephalic and head atraumatic Extremities: extremities normal to inspection Skin: + ulcer, + skin tightening, + wound, + s kin atrophy, + dry skin and + n ails dystrophic Neurologic: awake; + abnormal sensation to monofilament and no focal motor deficits Psychiatric: A+Ox3, euthymic affect Results & Data Results & Data Vital Signs (Past 12 Hours) Vital Signs Temp Pulse Resp BP Pulse Ox O2 Del Method 09/20/23 19:43 36.4 C L 79 18 119/62 97 Room Air 09/20/23 14:47 36.5 C 85 17 109/70 98 Room Air 09/20/23 13:08 82 16 152/81 H 97 Room Air 09/20/23 12:08 85 19 123/85 97 Room Air 09/20/23 11:38 87 16 136/80 100 Room Air 09/20/23 11:10 87 17 145/87 H 96 Room Air 09/20/23 10:55 94 H 20 128/91 96 Room Air 09/20/23 10:40 81 20 148/85 H 96 Room Air 09/20/23 10:25 36.6 C 102 H 20 147/88 H 96 Room Air 09/20/23 10:05 36.8 C 84 18 132/84 95 Room Air 09/20/23 09:50 36.8 C 85 18 129/81 96 Room Air 09/20/23 09:20 36.8 C 86 18 134/68 94 Room Air (3) Peripheral neuropathy Peripheral neuropathy type: polyneuropathy associated with underlying disease Qualified Code(s): G63 - Polyneuropathy in diseases classified elsewhere (4) Diabetic foot ulcer Diabetic foot ulcer location: toe Diabetes mellitus type: type 2 Laterality: unspecified laterality Non-pressure ulcer stage: with fat layer exposed Qualified Code(s): E11.621 - Type 2 diabetes mellitus with foot ulcer; L97.502 - Non-pressure chronic ulcer of other part of unspecified foot with fat layer exposed
[2023-09-21] MEDS ORDERED: VANCOMYCIN HCL 1,250 MG in SODIUM CHLORIDE 0.9% 500 ML IV SCH
[2023-09-21 06:55] LABS: Hematocrit (blood only) 26.6 % (37.0-47.0); Hemoglobin 8.1 g/dl (12.0-16.0); Mean Corpuscular Hemoglobin 23.3 pg (25.0-34.0); Mean Corpuscular Hgb Conc 30.5 g/dL (32.0-36.0); Mean Corpuscular Volume 76.7 fL (80.0-100.0); Mean Platelet Volume 10.3 fL (9.4-12.4); Platelet Count 366 K/uL (130-400); RDW Coefficient of Variation 19.9 % (11.5-14.5); RDW Standard Deviation 55.4 fL (36.4-46.3); Red Blood Count 3.47 M/uL (4.20-5.40); White Blood Count 10.19 K/ul (4.8-10.8)
[2023-09-21 07:24] LABS: BUN Creatinine Ratio 9.9 (10-20); Calcium 8.4 mg/dl (8.6-10.3); Creatinine Clr Calc Pharmacy 48.6 ml/min; Est GFR (African American) 47.5 ml/min; Phosphorus 5.4 mg/dl (2.5-4.9); Potassium 4.5 mmol/L (3.5-5.1)
--- NOTE | 2023-09-21 07:25 | Anesthesiology Consultation ---
Date of Service September 21, 2023 Assessment & Plan (1) Encounter for pre-operative examination: Chart Review Chart Review: Acceptable Risk for Surgery History Surgery Operation Date: 09/20/23 07:00 Proposed Procedures p Angio Extremity Unilateral - Liu Hay MD Operation Date: 09/21/23 08:55 Proposed Procedures p Left 4th toe Amputation - Anali Holland DPM Height/Weight Height: 5 ft 4 in Weight: 82.6 kg Allergies Allergy/AdvReac Type Severity Reaction Status Date / Time lidocaine Allergy Intermediate HIVES Verified 09/18/23 15:04 procaine Allergy Intermediate HIVES Verified 09/18/23 15:04 strawberry Allergy Intermediate HIVES Verified 09/18/23 15:04 Penicillins Allergy Mild HAD NO Verified 09/18/23 15:04 PROBLEM WITH ZOSYN mushroom Allergy Unknown Unknown Verified 09/18/23 15:04 onion Allergy Unknown Unknown Verified 09/18/23 15:04 COVID-19 (SARS-CoV-2) AdvReac Severe stopped Verified 09/18/23 15:04 vaccine, zoraida breathing next day cephalexin AdvReac Intermediate YEAST Verified 09/18/23 15:04 INFECTIONS tramadol AdvReac Intermediate SEIZURES Verified 09/18/23 15:04 azithromycin AdvReac Mild STOMACH Verified 09/18/23 15:04 PAIN Medications Home Medications Medication Instructions Recorded Confirmed Last Taken albuterol sulfate 2.5 mg/3 mL 2.5 mg inhalation Q4 PRN 07/10/21 09/18/23 Unknown (0.083 %) solution for nebulization WHEEZE/COUGH albuterol sulfate 90 mcg/actuation 2 puff inhalation Q4 PRN cough or 07/10/21 09/18/23 Unknown aerosol inhaler wheezing atorvastatin 80 mg tablet 80 mg PO QAM 07/10/21 09/18/23 05/28/23 buspirone 15 mg tablet 15 mg PO [facility] 07/10/21 09/18/23 05/28/23 08:00 clopidogrel 75 mg tablet 75 mg PO DAILY 07/10/21 09/18/23 05/28/23 cyclobenzaprine 10 mg tablet 10 mg PO BID 07/10/21 09/18/23 05/28/23 08:00 levetiracetam 500 mg tablet 500 mg PO [facility] 07/10/21 09/18/2324 08:00 lisinopril 5 mg tablet 5 mg PO QAM 07/10/21 09/18/23 05/28/23 metformin 1,000 mg tablet 1,000 mg PO BID 07/10/21 09/18/23 05/28/23 08:00 metoprolol succinate 25 mg 25 mg PO DAILY 07/10/21 09/18/23 05/28/23 tablet,extended release 24 hr polyethylene glycol 3350 17 gram 17 g PO DAILY PRN Constipation 07/10/21 09/18/23 05/28/23 oral powder packet (Miralax) potassium chloride 20 mEq 20 meq PO QAM 07/10/21 09/18/23 05/28/23 tablet,extended release(part/cryst) (Klor-Con M) torsemide 20 mg tablet 20 mg PO DAILY 07/10/21 09/18/23 05/28/23 trazodone 50 mg tablet 100 mg PO HS 07/10/21 09/18/23 05/27/23 aspirin 81 mg tablet,delayed 81 mg PO DAILY 03/03/22 09/18/23 05/28/23 release famotidine 20 mg tablet 20 mg PO BID PRN Heartburn 03/03/22 09/18/23 Unknown fluticasone furoate 200 1 inh inhalation QA 03/03/22 09/18/23 05/28/23 mcg-vilanterol 25 mcg/dose inhalation powder (Breo Ellipta) gabapentin 300 mg capsule 600 mg PO BID@0800,1400 03/03/22 09/18/23 05/28/23 08:00 nitroglycerin 0.4 mg sublingual 0.4 mg sublingual DAILY PRN Chest 03/03/22 09/18/23 05/28/23 tablet Pain ferrous sulfate 325 mg (65 mg 325 mg PO Q2D 04/22/23 09/18/23 05/27/23 iron) tablet gabapentin 300 mg capsule 900 mg PO HS 04/22/23 09/18/23 05/27/23 meclizine 25 mg tablet 25 mg PO TID PRN Dizziness 04/22/23 09/18/23 Unknown buprenorphine 8 mg-naloxone 2 mg 1 tab sublingual DAILY 05/28/23 09/18/23 05/27/23 sublingual tablet dexamethasone 6 mg tablet 6 mg PO DAILY #7 tabs 06/02/23 09/18/23 Unknown escitalopram oxalate 20 mg tablet 20 mg PO QAM 08/19/23 09/18/23 Unknown collagenase clostridium histo. 250 1 applic topical DAILY #30 grams 09/09/23 09/18/23 Unknown unit/gram topical ointment (Santyl) ciprofloxacin HCl 500 mg tablet 500 mg PO BID 14 days #28 tabs 09/11/23 09/18/23 Unknown Active Medications Generic Name Dose Route Start Last Admin Trade Name Kate PRN Reason Stop Dose Admin Aspirin 81 mg 09/19/23 09:00 09/20/23 10:35 Aspirin 81 Mg Ectab PO 10/19/23 08:59 81 mg DAILY WILMA Administration Buprenorphine/Naloxone 1 tab 09/19/23 09:00 09/20/23 10:46 Buprenorphine/Naloxone 8/2 Mg Tab SL 10/19/23 08:59 1 tab DAILY WILMA Administration Buspirone HCl 15 mg 09/18/23 21:00 09/20/23 21:27 Buspirone 15 Mg Tab PO 10/18/23 20:59 15 mg AMHS WILMA Administration Clopidogrel Bisulfate 75 mg 09/19/23 09:00 09/19/23 08:06 Clopidogrel Bisulfate 75 Mg Tab PO 10/19/23 08:59 75 mg DAILY WILMA Administration Cyclobenzaprine HCl 10 mg 09/18/23 21:00 09/20/23 20:20 Cyclobenzaprine Hcl 10 Mg Tab PO 10/18/23 20:59 10 mg BID WILMA Administration Escitalopram Oxalate 20 mg 09/19/23 09:00 09/20/23 10:34 Escitalopram Oxalate 20 Mg Tab PO 10/19/23 08:59 20 mg QAM WILMA Administration Famotidine 20 mg 09/20/23 09:00 09/20/23 10:36 Famotidine 20 Mg Tab PO 09/24/23 08:59 20 mg QAM WILMA Administration Ferrous Sulfate 325 mg 09/19/23 09:00 09/19/23 08:08 Ferrous Sulfate 325 Mg Tab PO 10/19/23 08:59 325 mg Q2D@0900 WILMA Administration Fluticasone/Vilanterol 1 puffs 09/19/23 09:00 09/20/23 10:34 Fluticasone/Vilanterol 200/25mcg 14 Puffs/Inhaler INH 10/19/23 08:59 1 puffs QAM WILMA Administration Gabapentin 600 mg 09/19/23 08:00 09/20/23 13:32 Gabapentin 300 Mg Cap PO 10/19/23 07:59 600 mg BID@0800,1400 WILMA Administration Gabapentin 900 mg 09/18/23 21:00 09/20/23 20:19 Gabapentin 300 Mg Cap PO 10/18/23 20:59 900 mg HS WILMA Administration Heparin Sodium (Porcine) 5,000 units 09/18/23 21:00 09/19/23 08:07 Heparin Sod 5,000 Unit/0.5 Ml Vial SQ 10/18/23 20:59 Not Given Q12 WILMA Piperacillin Sod/Tazobactam 100 mls @ 25 mls/hr 09/20/23 18:00 09/21/23 03:12 Sod 4.5 gm/ Dextrose IV 10/30/23 17:59 25 mls/hr Q8H WILMA Administration Protocol Insulin Aspart 0 units 09/20/23 11:30 09/20/23 21:25 Insulin Aspart Per Unit Charge SC 10/18/23 19:59 Not Given ACHS WILMA Levetiracetam 500 mg 09/18/23 21:00 09/20/23 20:19 Levetiracetam 500 Mg Tab PO 10/18/23 20:59 500 mg AMHS WILMA Administration Lisinopril 5 mg 09/19/23 09:00 09/20/23 10:34 Lisinopril 5 Mg Tab PO 10/19/23 08:59 5 mg QAM WILMA Administration Metoprolol Succinate 25 mg 09/19/23 09:00 09/20/23 10:34 Metoprolol Succ 25mg Ext Rel Tab PO 10/19/23 08:59 25 mg DAILY WILMA Administration Morphine Sulfate 2 mg 09/18/23 17:36 09/21/23 05:21 Morphine Sulfate 2 Mg/Ml Carp IV 10/02/23 17:35 2 mg Q4H PRN Administration Severe Pain (Scale 7, 8, 9,10) Potassium Chloride 20 meq 09/19/23 09:00 09/20/23 10:35 Potassium Chloride Crtab 20 Meq Tabcr PO 10/19/23 08:59 20 meq QAM WILMA Administration Trazodone HCl 100 mg 09/18/23 21:00 09/20/23 20:19 Trazodone Hcl 100 Mg Tab PO 10/18/23 20:59 100 mg HS WILMA Administration Past Medical History Medical History (Updated 09/21/23 @ 07:24 by Jovon Urbina MD) Peripheral neuropathy Diabetic foot ulcer Anemia CKD (chronic kidney disease), stage III HTN (hypertension) Aortic stenosis Seizure disorder History of DVT (deep vein thrombosis) Diabetes mellitus, type 2 Coronary artery disease Premature atherosclerotic coronary disease s/p 2-vessel coronary intervention 10/2016 receiving ROJAS to the ramus intermedius and distal circumflex for NTEMI, Repeat catheterization 02/23/2020, s/p PCI with ROJAS to the RCA PDA on 02/23/20 AJIT (acute kidney injury) Methamphetamine abuse Anemia, iron deficiency History of drug abuse Hepatitis C "Antibiotic screen positive, quantitative RNA positive 08/30/17" Past Family History Family History Other Diabetes Heart disease Hypertension Kidney stones Seizures Past Surgical History Surgical History (Updated 09/21/23 @ 07:22 by Jovon Urbina MD) History of lumbar spinal fusion Status post cholecystectomy S/P coronary artery stent placement History of cardiac cath 2017- 1 ROJAS to ramus, 2 ROJAS to L circumflex. 40-50% plaque to LAD 2018- distal disease (80%) within PDA Social History Smoking Status: Current every day smoker tobacco type: cigarettes Smoking cigarettes per day: 10 Do You Dip or Chew Tobacco: No Hx Alcohol Use: No Alcohol type: beer, wine and hard liquor alcohol intake frequency: holidays/special occasions only Hx Substance Use: No substance use type: does not use Substance Use Type Other:: 3 years drug free per record Last Used Substance: Unknown Physical Exam Vital Signs Last Vital Signs Temp 36.9 C 09/21/23 03:37 Pulse 66 09/21/23 03:37 Resp 18 09/21/23 03:37 BP 110/69 09/21/23 03:37 Pulse Ox 96 09/21/23 03:37 O2 Del Method Room Air 09/21/23 03:37 Testing Laboratory Results 09/21/23 05:37 09/18/23 16:19 Aerobic Blood Culture - Preliminary Blood No growth in Aerobic bottle after 48 hours. Anaerobic Blood Culture - Final 09/18/23 12:48 Aerobic Blood Culture - Preliminary Blood No growth in Aerobic bottle after 48 hours. Anaerobic Blood Culture - Preliminary No growth in Anaerobic bottle after 48 hours. 09/20/23 19:56 POC Glucose 107 H Electrocardiogram Date: 05/31/23 Findings: + NSR @ (80) and + NSST changes Echocardiogram Date: 04/23/23 EF: 60% LV Function: normal Valvular Disease: + (moderate) max pressure grad AV 53mmHg
--- NOTE | 2023-09-21 07:37 | Hospitalist Progress Note ---
Date of Service September 21, 2023 Assessment & Plan (1) Diabetic infection of left foot: (2) Peripheral neuropathy: (3) AJIT (acute kidney injury): (4) Polysubstance abuse: (5) HTN (hypertension): (6) HLD (hyperlipidemia): (7) Coronary artery disease: (8) Diabetes mellitus, type 2: (9) History of DVT (deep vein thrombosis): (10) CKD (chronic kidney disease), stage III: (11) Diabetic foot ulcer: (12) History of seizure: Plan Ms. 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 She has been being followed as an outpatient for a 4th toe wound infection through the wound clinic as well. Her wound has been dressed with Aquacel Ag. She was started on Ciprofloxacin on 09/17. Her original injury to her toe occurred in July 2023 and has been worsening since. An MRI was scheduled for September/2023 to evaluate for osteomyelitis and she was referred to Dr. Boyd for surgical consultation which was to take place tomorrow 09/18. Additionally patient was to have arterial venous studies done on 10/03/2023. Additional past medical history includes DVT, xnp-uehuspf-bakfasbcw diabetes, CKD, meth use, history of IVDA (last use 6 years ago), hepatitis C, h/o seizures (On Keppra). Her last seizure was a few years ago. She takes Keppra compliantly. Left foot x-ray: Findings concerning for osteomyelitis of the fourth digit distal phalanx with prominent bony erosion. Patient started on meropenem for pseudomonas/klebsiella given susceptibility YENNI <16 for zosyn, <1 with miriam; however, ID highlighted CLSI breakpoints which indicate that Zosyn would remain the appropriate choice. Vanc/Zosyn started Podiatry and Vascular on consult: planning revascularization and amputation. #Sepsis secondary to diabetic infection of left 4th toe: POA, resolved #osteomyelitis of 4th toe #Peripheral neuropathy: Foot x-ray left foot concerning of osteomyelitis fourth digit proximal bony erosion. IV Zosyn started in ED; continue for now and adjust based on wound culture and blood culture results Follows wound clinic outpatient continue while inpatient here Foot x-ray : Findings concerning for osteomyelitis of the fourth digit distal phalanx with prominent bony erosion. Takes gabapentin; continue Podiatry consult placed -amputation per 09/20 Lactate 1.1 blood cultures NGTD ID consult D/C meropenem,continue Zosyn and Vanc per ID Discussion to be had regarding duration of therapy per ID based up on biospy results #PAD with left WEAVER HAND LOOM/SFA/popliteal disease on US -Revascularization 09/19, dapt for 1 months 1. Left lower extremity --30-40% distal WEAVER HAND LOOM, diffuse calcified SFA disease up to 90% distally, sequential 60% popliteal lesions. Three-vessel distal runoff with intact DPA/plantar arteries and pedal arch. 2. Right lower extremity --diffuse calcified WEAVER HAND LOOM 50%, 70% ostial SFA, 50% ostial profunda. 3. Successful left SFA/popliteal intravascular lithotripsy (5.0 shockwave) and angioplasty with drug-eluting balloons (5.0 x 220, 5.0 x 60). Follow-up non-invasive vascular testing in 2 weeks. #CKD III Chronic serum creatinine 1.63; baseline 1.57-1.90 #HTN: Chronic Takes lisinopril; continue #CAD: Chronic Status post two-vessel ROJAS placed 10/2016 Takes aspirin plus Plavix; resume #Old-kocrhiv-fvusgyedm diabetic: Chronic Takes metformin; hold patient placed on SSI ACHS 6.0% 09/18 #COPD: Chronic Takes Breo-Ellipta;continue #History of DVT: Chronic Years ago not on any anticoagulation #History of IVDA: Chronic Reports last use 6 years ago Takes Suboxone; continue #Depression: Chronic Takes Lexapro; continue Disposition: PCP: Dr. Iverson CODE STATUS: Full code VTE prophylaxis: heparin sq PT/OT Admission and Anticipated Discharge Date Admission Date: September 18, 2023 Subjective s/p amputation sitting in bedside chair Reports feeling happy she is over the surgical process, eager for dispo planning Denies any acute concerns out side of post surgical pain returning Physical Exam Constitutional: WD/WN, vitals as above Respiratory: normal respiratory effort, lungs clear to auscultation Cardiovascular: RRR, no murmur, no edema Gastrointestinal (Abdomen): normal bowel sounds, soft, nontender, no hepatosplenomegaly Skin: cam boot in place Results & Data Results & Data Vital Signs (Past 12 Hours) Vital Signs Temp Pulse Pulse Resp BP Pulse Ox O2 Del Method 09/21/23 07:33 75 09/21/23 03:37 36.9 C 66 18 110/69 96 Room Air 09/20/23 22:55 36.7 C 77 18 110/72 18 L Room Air 09/20/23 21:57 81 09/20/23 19:43 36.4 C L 79 18 119/62 97 Room Air Laboratory Results Short CBC 09/21/23 Range/Units 05:37 WBC 10.19 (4.8-10.8) K/ul Hgb 8.1 L (12.0-16.0) g/dl Hct 26.6 L (37.0-47.0) % Plt Count 366 (130-400) K/uL BMP 09/21/23 05:37 Sodium 139 Potassium 4.5 Chloride 112 H Carbon Dioxide 21 BUN 15 Creatinine 1.52 H Glucose 85 Calcium 8.4 L Medications Administered Home Medications Medication Instructions Recorded Confirmed Last Taken albuterol sulfate 2.5 mg/3 mL 2.5 mg inhalation Q4 PRN 07/10/21 09/18/23 Unknown (0.083 %) solution for nebulization WHEEZE/COUGH albuterol sulfate 90 mcg/actuation 2 puff inhalation Q4 PRN cough or 07/10/21 09/18/23 Unknown aerosol inhaler wheezing atorvastatin 80 mg tablet 80 mg PO QAM 07/10/21 09/18/23 05/28/23 buspirone 15 mg tablet 15 mg PO [facility] 07/10/21 09/18/23 05/28/23 08:00 clopidogrel 75 mg tablet 75 mg PO DAILY 07/10/21 09/18/23 05/28/23 cyclobenzaprine 10 mg tablet 10 mg PO BID 07/10/21 09/18/23 05/28/23 08:00 levetiracetam 500 mg tablet 500 mg PO [facility] 07/10/21 09/18/23 05/28/23 08:00 lisinopril 5 mg tablet 5 mg PO [facility] 07/10/21 09/18/23 05/28/23 metformin 1,000 mg tablet 1,000 mg PO BID 07/10/21 09/18/23 05/28/23 08:00 metoprolol succinate 25 mg 25 mg PO DAILY 07/10/21 09/18/23 05/28/23 tablet,extended release 24 hr polyethylene glycol 3350 17 gram 17 g PO DAILY PRN Constipation 07/10/21 09/18/23 05/28/23 oral powder packet (Miralax) potassium chloride 20 mEq 20 meq PO QAM 07/10/21 09/18/23 05/28/23 tablet,extended release(part/cryst) (Klor-Con M) torsemide 20 mg tablet 20 mg PO DAILY 07/10/21 09/18/23 05/28/23 trazodone 50 mg tablet 100 mg PO HS 07/10/21 09/18/23 05/27/23 aspirin 81 mg tablet,delayed 81 mg PO DAILY 03/03/22 09/18/23 05/28/23 release famotidine 20 mg tablet 20 mg PO BID PRN Heartburn 03/03/22 09/18/23 Unknown fluticasone furoate 200 1 inh inhalation QAM 03/03/22 09/18/23 05/28/23 mcg-vilanterol 25 mcg/dose inhalation powder (Breo Ellipta) gabapentin 300 mg capsule 600 mg PO BID@0800,1400 03/03/22 09/18/23 05/28/23 08:00 nitroglycerin 0.4 mg sublingual 0.4 mg sublingual DAILY PRN Chest 03/03/22 09/18/23 05/28/23 tablet Pain ferrous sulfate 325 mg (65 mg 325 mg PO Q2D 04/22/23 09/18/23 05/27/23 iron) tablet gabapentin 300 mg capsule 900 mg PO HS 04/22/23 09/18/23 05/27/23 meclizine 25 mg tablet 25 mg PO TID PRN Dizziness 04/22/23 09/18/23 Unknown buprenorphine 8 mg-naloxone 2 mg 1 tab sublingual DAILY 05/28/23 09/18/23 05/27/23 sublingual tablet dexamethasone 6 mg tablet 6 mg PO DAILY #7 tabs 06/02/23 09/18/23 Unknown escitalopram oxalate 20 mg tablet 20 mg PO QAM 08/19/23 09/18/23 Unknown collagenase clostridium histo. 250 1 applic topical DAILY #30 grams 09/09/23 09/18/23 Unknown unit/gram topical ointment (Santyl) ciprofloxacin HCl 500 mg tablet 500 mg PO BID 14 days #28 tabs 09/11/23 09/18/23 Unknown Active Medications Generic Name Dose Route Start Last Admin Trade Name Kate PRN Reason Stop Dose Admin Aspirin 81 mg 09/19/23 09:00 09/20/23 10:35 Aspirin 81 Mg Ectab PO 10/19/23 08:59 81 mg DAILY WILMA Administration Buprenorphine/Naloxone 1 tab 09/19/23 09:00 09/21/23 12:35 Buprenorphine/Naloxone 8/2 Mg Tab SL 10/19/23 08:59 1 tab DAILY WILMA Administration Buspirone HCl 15 mg 09/18/23 21:00 09/21/23 12:36 Buspirone 15 Mg Tab PO 10/18/23 20:59 15 mg AMHS WILMA Administration Clopidogrel Bisulfate 75 mg 09/19/23 09:00 09/21/23 12:30 Clopidogrel Bisulfate 75 Mg Tab PO 10/19/23 08:59 Not Given DAILY WILMA Cyclobenzaprine HCl 10 mg 09/18/23 21:00 09/21/23 12:27 Cyclobenzaprine Hcl 10 Mg Tab PO 10/18/23 20:59 10 mg BID WILMA Administration Escitalopram Oxalate 20 mg 09/19/23 09:00 09/21/23 12:25 Escitalopram Oxalate 20 Mg Tab PO 10/19/23 08:59 20 mg QAM WILMA Administration Famotidine 20 mg 09/20/23 09:00 09/21/23 12:28 Famotidine 20 Mg Tab PO 09/24/23 08:59 20 mg QAM WILMA Administration Ferrous Sulfate 325 mg 09/19/23 09:00 09/21/23 12:27 Ferrous Sulfate 325 Mg Tab PO 10/19/23 08:59 325 mg Q2D@0900 WILMA Administration Fluticasone/Vilanterol 1 puffs 09/19/23 09:00 09/21/23 12:28 Fluticasone/Vilanterol 200/25mcg 14 Puffs/Inhaler INH 10/19/23 08:59 1 puffs QAM WILMA Administration Gabapentin 600 mg 09/19/23 08:00 09/21/23 13:41 Gabapentin 300 Mg Cap PO 10/19/23 07:59 600 mg BID@0800,1400 WILMA Administration Gabapentin 900 mg 09/18/23 21:00 09/20/23 20:19 Gabapentin 300 Mg Cap PO 10/18/23 20:59 900 mg HS WILMA Administration Heparin Sodium (Porcine) 5,000 units 09/18/23 21:00 09/21/23 12:29 Heparin Sod 5,000 Unit/0.5 Ml Vial SQ 10/18/23 20:59 Not Given Q12 WILMA Piperacillin Sod/Tazobactam 100 mls @ 25 mls/hr 09/20/23 18:00 09/21/23 12:30 Sod 4.5 gm/ Dextrose IV 10/30/23 17:59 25 mls/hr Q8H WILMA Administration Protocol Vancomycin HCl 1,500 mg/ 530 mls @ 200 mls/hr 09/21/23 08:00 09/21/23 12:57 Sodium Chloride IV 09/28/23 07:59 Infused Q24H WILMA Infusion Insulin Aspart 0 units 09/20/23 11:30 09/21/23 13:40 Insulin Aspart Per Unit Charge SC 10/18/23 19:59 Not Given ACHS WILMA Levetiracetam 500 mg 09/18/23 21:00 09/21/23 12:29 Levetiracetam 500 Mg Tab PO 10/18/23 20:59 500 mg AMHS WILMA Administration Lisinopril 5 mg 09/19/23 09:00 09/21/23 12:27 Lisinopril 5 Mg Tab PO 10/19/23 08:59 5 mg QAM WILMA Administration Metoprolol Succinate 25 mg 09/19/23 09:00 09/21/23 12:26 Metoprolol Succ 25mg Ext Rel Tab PO 10/19/23 08:59 25 mg DAILY WILMA Administration Morphine Sulfate 2 mg 09/18/23 17:36 09/21/23 12:34 Morphine Sulfate 2 Mg/Ml Carp IV 10/02/23 17:35 2 mg Q4H PRN Administration Severe Pain (Scale 7, 8, 9,10) Potassium Chloride 20 meq 09/19/23 09:00 09/21/23 12:27 Potassium Chloride Crtab 20 Meq Tabcr PO 10/19/23 08:59 20 meq QAM WILMA Administration Trazodone HCl 100 mg 09/18/23 21:00 09/20/23 20:19 Trazodone Hcl 100 Mg Tab PO 10/18/23 20:59 100 mg HS WILMA Administration (2) Peripheral neuropathy Peripheral neuropathy type: polyneuropathy associated with underlying disease Qualified Code(s): G63 - Polyneuropathy in diseases classified elsewhere (8) Diabetes mellitus, type 2 Diabetes mellitus complication status: with unspecified complications Diabetes mellitus supervisor intermediates insulin use: without supervisor intermediates use Qualified Code(s): E11.8 - Type 2 diabetes mellitus with unspecified complications (11) Diabetic foot ulcer Diabetes mellitus type: type 2 Diabetic foot ulcer location: toe Laterality: unspecified laterality Non-pressure ulcer stage: with fat layer exposed Qualified Code(s): E11.621 - Type 2 diabetes mellitus with foot ulcer; L97.502 - Non-pressure chronic ulcer of other part of unspecified foot with fat layer expo sed
[2023-09-21] MEDS: VANCOMYCIN HCL 1,500 MG in SODIUM CHLORIDE 0.9% 500 ML IV SCH (08:30)
--- NOTE | 2023-09-21 09:33 | History & Physical Bridge Note ---
Date of Service September 21, 2023 History & Physical Bridge Note I have examined the patient, reviewed the History & Physical and in the interval since the performance of the History & Physical I have noted the following changes of clinical significance: no changes noted
[2023-09-21] MEDS ORDERED: PROPOFOL IV EMULSION 10 MG/ML 20 ML VIAL IV ONE ×2 (09:46→09:56)
[2023-09-21] MEDS ORDERED: MIDAZOLAM HCL 1 MG/ML 2ML VIAL ONE (09:46)
[2023-09-21] MEDS ORDERED: fentaNYL citrate PF 100 MCG/2 ML VIAL ONE (09:46)
[2023-09-21] MEDS ORDERED: ONDANSETRON INJ 2 MG/ML 2 ML VIAL ONE (09:56)
[2023-09-21] MEDS: BUPIVACAINE 0.25% PF 30 ML VIAL ONE (10:06)
[2023-09-21] MEDS ORDERED: ATROPINE SULFATE 0.1 MG/ML 10ML SYR IV PRN (10:30)
[2023-09-21] MEDS: fentaNYL citrate PF 100 MCG/2 ML VIAL IV PRN (10:35)
--- NOTE | 2023-09-21 10:36 | Post Operative Brief Note ---
Immediate Post Op Note v1 Date of Surgery September 21, 2023 Pre & Post Diagnosis Operation Date: 09/21/23 08:55 Pre-Op Diagnosis: (1) Acute osteomyelitis of toe of left foot: (2) Diabetic infection of left foot: (3) Peripheral neuropathy: (4) Diabetic foot ulcer: Post-Op Diagnosis: (1) Acute osteomyelitis of toe of left foot: (2) Diabetic infection of left foot: (3) Peripheral neuropathy: (4) Diabetic foot ulcer: I identified the patient and participated in the time-out.: Yes Procedure Operation Date: 09/21/23 08:55 Actual Procedures p Left 4th toe Amputation(Left) - Anali Holland DPM Surgeon Anali Holland DPM [employer] none Estimated Blood Loss 25 Findings See Below osteonecrosis noted of distal phalanx left 4th toe consistent with osteomyelitis. Specimens left 4th toe for pathology left 4th toe tissue for aerobic and anaerobic cultures with gram stain Anesthesia Type MAC Complications none Disposition Accompanied Patient To Recovery: Yes
--- NOTE | 2023-09-21 11:19 | Anesthesiology Progress Note ---
Date of Service September 21, 2023 Anesthesia Post Procedure Vital Signs Vital Signs: Temp Pulse Pulse Pulse Resp BP Pulse Ox 09/21/23 11:00 37 C 78 14 125/71 97 09/21/23 10:50 79 18 129/82 96 09/21/23 10:40 76 16 122/79 95 09/21/23 10:32 36 C L 82 18 137/74 99 09/21/23 07:38 36.6 C 84 18 131/83 100 09/21/23 07:33 75 09/21/23 03:37 36.9 C 66 18 110/69 96 09/20/23 22:55 36.7 C 77 18 110/72 18 L 09/20/23 21:57 81 09/20/23 19:43 36.4 C L 79 18 119/62 97 09/20/23 14:47 36.5 C 85 17 109/70 98 09/20/23 13:08 82 16 152/81 H 97 09/20/23 12:08 85 19 123/85 97 09/20/23 11:38 87 16 136/80 100 O2 Del Method 09/21/23 11:00 Room Air 09/21/23 10:50 Room Air 09/21/23 10:40 Room Air 09/21/23 10:32 Room Air 09/21/23 07:38 Room Air 09/21/23 07:33 09/21/23 03:37 Room Air 09/20/23 22:55 Room Air 09/20/23 21:57 09/20/23 19:43 Room Air 09/20/23 14:47 Room Air 09/20/23 13:08 Room Air 09/20/23 12:08 Room Air 09/20/23 11:38 Room Air Pain Intensity Left Foot: Pain Intensity: 4 Transfer of Care Handoff Completed per policy Notes Mental Status: alert / awake / arousable Patient Amnestic to Procedure: Yes Nausea / Vomiting: adequately controlled Pain: adequately controlled Airway Patency, RR, SpO2: stable & adequate BP & HR: stable & adequate Hydration State: stable & adequate Anesthetic Complications: no major complications apparent
[2023-09-21] MEDS: fentaNYL citrate PF 100 MCG/2 ML VIAL ONE (12:31)
[2023-09-21] MEDS: MoRPHine SULFATE 2 MG/ML CARP IV STA (14:36)
[2023-09-21] MEDS: ACETAMINOPHEN 1,000 MG/100 ML VIAL IV STA (23:19)
[2023-09-22 05:48] LABS: Hematocrit (blood only) 24.4 % (37.0-47.0); Hemoglobin 7.3 g/dl (12.0-16.0); Mean Corpuscular Hemoglobin 23.1 pg (25.0-34.0); Mean Corpuscular Hgb Conc 29.9 g/dL (32.0-36.0); Mean Corpuscular Volume 77.2 fL (80.0-100.0); Mean Platelet Volume 10.2 fL (9.4-12.4); Platelet Count 320 K/uL (130-400); RDW Coefficient of Variation 19.9 % (11.5-14.5); RDW Standard Deviation 56.1 fL (36.4-46.3); Red Blood Count 3.16 M/uL (4.20-5.40); White Blood Count 9.88 K/ul (4.8-10.8)
[2023-09-22 05:49] LABS: BUN Creatinine Ratio 10.1 (10-20); Calcium 8.5 mg/dl (8.6-10.3); Creatinine Clr Calc Pharmacy 50.2 ml/min; Est GFR (African American) 49.1 ml/min; Est GFR (Non-African American) 42.3 ml/min; Magnesium 1.9 mg/dl (1.7-2.4); Phosphorus 5.4 mg/dl (2.5-4.9); Potassium 4.3 mmol/L (3.5-5.1)
[2023-09-22] MEDS: VANCOMYCIN LEVEL ONE (09:10)
--- NOTE | 2023-09-22 09:41 | Pharmacy Report ---
Pharmacy PK ABX Note - Date of Service September 22, 2023 - Assessment and Plan Assessment * 43 year old F receiving Zosyn and vancomycin for treatment of SSTI L foot. * Pertinent microbiologic data includes: 09/17 blood cultures w NGTD, 09/20 L 4th toe culture with no organisms on gram stain * SCr is elevated but stable Plan Vancomycin * Target AUC/YENNI of 400-600 mg/L.hr * Random level of 15.4 mcg/mL this AM associated with supratherapeutic AUC of 653 mg/L.hr * Will decrease maintenance dose to 1250 mg IV q24h * Repeat random level in 2 days, 09/23 AM Pharmacy will continue to follow and will adjust dose/frequency as necessary. Thank you. Pharmacy has transitioned to AUC monitoring for vancomycin. AUC/YENNI is the preferred PK/PD target and is associated with decreased risk of nephrotoxicity compared to traditional trough targets.
[2023-09-22] MEDS ORDERED: SODIUM CHLORIDE 0.9% 250 ML IV PRN (12:16)
--- NOTE | 2023-09-22 12:35 | Hospitalist Progress Note ---
Date of Service September 22, 2023 Assessment & Plan (1) Diabetic infection of left foot: (2) Peripheral neuropathy: (3) AJIT (acute kidney injury): (4) Polysubstance abuse: (5) HTN (hypertension): (6) HLD (hyperlipidemia): (7) Coronary artery disease: (8) Diabetes mellitus, type 2: (9) History of DVT (deep vein thrombosis): (10) CKD (chronic kidney disease), stage III: (11) Diabetic foot ulcer: (12) History of seizure: Plan Ms. Gonzalez is a 43 year old female that presented to the ED as recommended by her seismograph observer. She has been being followed as an outpatient for a 4th toe wound infection through the wound clinic as well. Her wound has been dressed with Aquacel Ag. She was started on Ciprofloxacin on 09/17. Her original injury to her toe occurred in July 2023 and has been worsening since. An MRI was scheduled for September/2023 to evaluate for osteomyelitis and she was referred to Dr. Boyd for surgical consultation which was to take place tomorrow 09/18. Additionally patient was to have arterial venous studies done on 10/03/2023. Additional past medical history includes DVT, kqk-nsuuruq-qchtnzftd diabetes, CKD, meth use, history of IVDA (last use 6 years ago), hepatitis C, h/o seizures (On Keppra). Her last seizure was a few years ago. She takes Keppra compliantly. Left foot x-ray: Findings concerning for osteomyelitis of the fourth digit distal phalanx with prominent bony erosion. Patient started on meropenem for pseudomonas/klebsiella given susceptibility YENNI <16 for zosyn, <1 with miriam; however, ID highlighted CLSI breakpoints which indicate that Zosyn would remain the appropriate choice. Vanc/Zosyn started Podiatry and Vascular on consult: completed revascularization at 09/19 and amputation on 09/20 #Acute on chronic anemia, post op Hgb baseline 8-9, 7.3 this morning Given revascularization and severe vascular disease/CAD will transfuse to goal >8 1 UPRBC ordered #Sepsis secondary to diabetic infection of left 4th toe: POA, resolved #osteomyelitis of 4th toe #Peripheral neuropathy: Foot x-ray left foot concerning of osteomyelitis fourth digit proximal bony erosion. IV Zosyn started in ED; continue for now and adjust based on wound culture and blood culture results Follows wound clinic outpatient continue while inpatient here Foot x-ray : Findings concerning for osteomyelitis of the fourth digit distal phalanx with prominent bony erosion. Takes gabapentin; continue Podiatry consult placed -amputation per 09/20 Lactate 1.1 blood cultures NGTD ID consult D/C meropenem,continue Zosyn and Vanc per ID---will discontinue after EKG and po antibiotic regimen cooridnated -Discussed final abx recommendations with Dr. 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 Left lower extremity --30-40% distal [employer], diffuse calcified SFA disease up to 90% distally, sequential 60% popliteal lesions. Three-vessel distal runoff with intact DPA/plantar arteries and pedal arch. 2. Right lower extremity --diffuse calcified [employer]IST 50%, 70% ostial SFA, 50% ostial profunda. 3. Successful left SFA/popliteal intravascular lithotripsy (5.0 shockwave) and angioplasty with drug-eluting balloons (5.0 x 220, 5.0 x 60). Follow-up non-invasive vascular testing in 2 weeks. h #CKD III Chronic serum creatinine 1.63; baseline 1.57-1.90 #HTN: Chronic Takes lisinopril; continue #CAD: Chronic Status post two-vessel ROJAS placed 10/2016 Takes aspirin plus Plavix;continue #Slm-jxlwebn-gljhhmzye diabetic: Chronic Takes metformin; hold patient placed on SSI ACHS 6.0% 09/18 #COPD: Chronic Takes Breo-Ellipta;continue #History of DVT: Chronic Years ago not on any anticoagulation #History of IVDA: Chronic Reports last use 6 years ago Takes Suboxone; continue #Depression: Chronic Takes Lexapro; continue Disposition: PCP: Dr. Iverson CODE STATUS: Full code VTE prophylaxis: heparin sq PT/OT Admission and Anticipated Discharge Date Admission Date: September 18, 2023 Subjective Patient evaluated in bedside chair Denies any acute concerns Reports eagerness to discharge as soon as possible Physical Exam Constitutional: WD/WN, vitals as above Respiratory: normal respiratory effort, lungs clear to auscultation Cardiovascular: RRR, no murmur, no edema Musculoskeletal: no cyanosis or clubbing, extremities motor strength 5/5 left foot with cam boot in place Results & Data Results & Data Vital Signs (Past 12 Hours) Vital Signs Temp Pulse Pulse Resp BP Pulse Ox O2 Del Method 09/22/23 11:13 36.7 C 80 12 117/72 97 Room Air 09/22/23 07:26 36.9 C 78 18 132/79 98 Room Air 09/22/23 07:08 69 09/22/23 04:04 36.9 C 70 18 117/71 98 Room Air Laboratory Results Short CBC 09/22/23 Range/Units 05:17 WBC 9.88 (4.8-10.8) K/ul Hgb 7.3 L (12.0-16.0) g/dl Hct 24.4 L (37.0-47.0) % Plt Count 320 (130-400) K/uL BMP 09/22/23 05:16 Sodium 137 Potassium 4.3 Chloride 112 H Carbon Dioxide 21 BUN 15 Creatinine 1.48 H Glucose 184 H Calcium 8.5 L Medications Administered Home Medications Medication Instructions Recorded Confirmed Last Taken albuterol sulfate 2.5 mg/3 mL 2.5 mg inhalation Q4 PRN 07/10/21 09/18/23 Unknown (0.083 %) solution for nebulization WHEEZE/COUGH albuterol sulfate 90 mcg/actuation 2 puff inhalation Q4 PRN cough or 07/10/21 09/18/23 Unknown aerosol inhaler wheezing atorvastatin 80 mg tablet 80 mg PO QAM 07/10/21 09/18/23 05/28/23 buspirone 15 mg tablet 15 mg PO [facility] 07/10/21 09/18/23 05/28/23 08:00 clopidogrel 75 mg tablet 75 mg PO DAILY 07/10/21 09/18/23 05/28/23 cyclobenzaprine 10 mg tablet 10 mg PO BID 07/10/21 09/18/23 05/28/23 08:00 levetiracetam 500 mg tablet 500 mg PO [facility] 07/10/21 09/18/23 05/28/23 08:00 lisinopril 5 mg tablet 5 mg PO QAM 07/10/21 09/18/23 05/28/23 metformin 1,000 mg tablet 1,000 mg PO BID 07/10/21 09/18/23 05/28/23 08:00 metoprolol succinate 25 mg 25 mg PO DAILY 07/10/21 09/18/23 05/28/23 tablet,extended release 24 hr polyethylene glycol 3350 17 gram 17 g PO DAILY PRN Constipation 07/10/21 09/18/23 05/28/23 oral powder packet (Miralax) potassium chloride 20 mEq 20 meq PO QAM 07/10/21 09/18/23 05/28/23 tablet,extended release(part/cryst) (Klor-Con M) torsemide 20 mg tablet 20 mg PO DAILY 07/10/21 09/18/23 05/28/23 trazodone 50 mg tablet 100 mg PO HS 07/10/21 09/18/23 05/27/23 aspirin 81 mg tablet,delayed 81 mg PO DAILY 03/03/22 09/18/23 05/28/23 release famotidine 20 mg tablet 20 mg PO BID PRN Heartburn 03/03/22 09/18/23 Unknown fluticasone furoate 200 1 inh inhalation [facility] 03/03/22 09/18/23 05/28/23 mcg-vilanterol 25 mcg/dose inhalation powder (Breo Ellipta) gabapentin 300 mg capsule 600 mg PO BID@0800,1400 03/03/22 09/18/23 05/28/23 08:00 nitroglycerin 0.4 mg sublingual 0.4 mg sublingual DAILY PRN Chest 03/03/22 09/18/23 05/28/23 tablet Pain ferrous sulfate 325 mg (65 mg 325 mg PO Q2D 04/22/23 09/18/23 05/27/23 iron) tablet gabapentin 300 mg capsule 900 mg PO HS 04/22/23 09/18/23 05/27/23 meclizine 25 mg tablet 25 mg PO TID PRN Dizziness 04/22/23 09/18/23 Unknown buprenorphine 8 mg-naloxone 2 mg 1 tab sublingual DAILY 05/28/23 09/18/23 05/27/23 sublingual tablet dexamethasone 6 mg tablet 6 mg PO DAILY #7 tabs 06/02/23 09/18/23 Unknown escitalopram oxalate 20 mg tablet 20 mg PO QAM 08/19/23 09/18/23 Unknown collagenase clostridium histo. 250 1 applic topical DAILY #30 grams 09/09/23 09/18/23 Unknown unit/gram topical ointment (Santyl) ciprofloxacin HCl 500 mg tablet 500 mg PO BID 14 days #28 tabs 09/11/23 09/18/23 Unknown Active Medications Generic Name Dose Route Start Last Admin Trade Name Choloq PRN Reason Stop Dose Admin Aspirin 81 mg 09/19/23 09:00 09/22/23 08:03 Aspirin 81 Mg Ectab PO 10/19/23 08:59 81 mg DAILY WILMA Administration Buprenorphine/Naloxone 1 tab 09/19/23 09:00 09/22/23 08:11 Buprenorphine/Naloxone 8/2 Mg Tab SL 10/19/23 08:59 1 tab DAILY WILMA Administration Buspirone HCl 15 mg 09/18/23 21:00 09/22/23 08:03 Buspirone 15 Mg Tab PO 10/18/23 20:59 15 mg AMHS WILMA Administration Clopidogrel Bisulfate 75 mg 09/19/23 09:00 09/22/23 08:03 Clopidogrel Bisulfate 75 Mg Tab PO 10/19/23 08:59 75 mg DAILY WILMA Administration Cyclobenzaprine HCl 10 mg 09/18/23 21:00 09/22/23 08:11 Cyclobenzaprine Hcl 10 Mg Tab PO 10/18/23 20:59 10 mg BID WILMA Administration Escitalopram Oxalate 20 mg 09/19/23 09:00 09/22/23 08:03 Escitalopram Oxalate 20 Mg Tab PO 10/19/23 08:59 20 mg QAM WILMA Administration Famotidine 20 mg 09/20/23 09:00 09/22/23 08:03 Famotidine 20 Mg Tab PO 09/24/23 08:59 20 mg QAM WILMA Administration Ferrous Sulfate 325 mg 09/19/23 09:00 09/21/23 12:27 Ferrous Sulfate 325 Mg Tab PO 10/19/23 08:59 325 mg Q2D@0900 WILMA Administration Fluticasone/Vilanterol 1 puffs 09/19/23 09:00 05/26/24 08:04 Fluticasone/Vilanterol 200/25mcg 14 Puffs/Inhaler INH 10/19/23 08:59 1 puffs QAM WILMA Administration Gabapentin 600 mg 09/19/23 08:00 09/22/23 08:03 Gabapentin 300 Mg Cap PO 10/19/23 07:59 600 mg BID@0800,1400 WILMA Administration Gabapentin 900 mg 09/18/23 21:00 09/21/23 20:40 Gabapentin 300 Mg Cap PO 10/18/23 20:59 900 mg HS WILMA Administration Heparin Sodium (Porcine) 5,000 units 09/18/23 21:00 09/22/23 08:04 Heparin Sod 5,000 Unit/0.5 Ml Vial SQ 10/18/23 20:59 5,000 units Q12 WILMA Administration Piperacillin Sod/Tazobactam 100 mls @ 25 mls/hr 09/20/23 18:00 09/22/23 10:09 Sod 4.5 gm/ Dextrose IV 10/30/23 17:59 25 mls/hr Q8H WILMA Administration Protocol Insulin Aspart 0 units 09/20/23 11:30 09/22/23 12:04 Insulin Aspart Per Unit Charge SC 10/18/23 19:59 3 units ACHS WILMA Administration Levetiracetam 500 mg 09/18/23 21:00 09/22/23 08:03 Levetiracetam 500 Mg Tab PO 10/18/23 20:59 500 mg AMHS WILMA Administration Lisinopril 5 mg 09/19/23 09:00 09/22/23 08:03 Lisinopril 5 Mg Tab PO 10/19/23 08:59 5 mg QAM WILMA Administration Metoprolol Succinate 25 mg 09/19/23 09:00 09/22/23 08:03 Metoprolol Succ 25mg Ext Rel Tab PO 10/19/23 08:59 25 mg DAILY WILMA Administration Morphine Sulfate 2 mg 09/18/23 17:36 09/22/23 12:12 Morphine Sulfate 2 Mg/Ml Carp IV 10/02/23 17:35 2 mg Q4H PRN Administration Severe Pain (Scale 7, 8, 9,10) Potassium Chloride 20 meq 09/19/23 09:00 09/22/23 08:11 Potassium Chloride Crtab 20 Meq Tabcr PO 10/19/23 08:59 20 meq QAM WILMA Administration Trazodone HCl 100 mg 09/18/23 21:00 09/21/23 20:39 Trazodone Hcl 100 Mg Tab PO 10/18/23 20:59 100 mg HS WILMA Administration (2) Peripheral neuropathy Peripheral neuropathy type: polyneuropathy associated with underlying disease Qualified Code(s): G63 - Polyneuropathy in diseases classified elsewhere (8) Diabetes mellitus, type 2 Diabetes mellitus complication status: with unspecified complications 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
--- NOTE | 2023-09-22 22:51 | Electrocardiogram Report ---
Test Reason : Blood Pressure : / mmHG Vent. Rate : 073 BPM Atrial Rate : 073 BPM P-R Int : 154 ms QRS Dur : 082 ms QT Int : 400 ms P-R-T Axes : 027 048 050 degrees QTc Int : 440 ms Normal sinus rhythm Normal ECG When compared with ECG of 31-MAY-2023 15:09, No significant change was found Confirmed by Maurice Mattson ([id number]) on 09/22/2023 10:50:51 PM Referred By: REFERRED SELF Confirmed By:Maurice Mattson
[2023-09-23 07:00] LABS: BUN Creatinine Ratio 10.1 (10-20); Calcium 8.4 mg/dl (8.6-10.3); Creatinine Clr Calc Pharmacy 46.9 ml/min; Est GFR (African American) 45.3 ml/min; Est GFR (Non-African American) 39.1 ml/min; Potassium 4.5 mmol/L (3.5-5.1)
[2023-09-23 07:12] LABS: Hematocrit (blood only) 28.2 % (37.0-47.0); Hemoglobin 8.6 g/dl (12.0-16.0); Mean Corpuscular Hgb Conc 30.5 g/dL (32.0-36.0); Mean Corpuscular Volume 78.6 fL (80.0-100.0); Mean Platelet Volume 10.1 fL (9.4-12.4); Platelet Count 341 K/uL (130-400); RDW Standard Deviation 56.6 fL (36.4-46.3); Red Blood Count 3.59 M/uL (4.20-5.40)
--- NOTE | 2023-09-23 09:02 | Podiatry Progress Note ---
Date of Service September 23, 2023 Assessment & Plan (1) Acute osteomyelitis of toe of left foot: (2) Diabetic infection of left foot: (3) Peripheral neuropathy: (4) Diabetic foot ulcer: Plan - Pt examined and evaluated. - Okay to discharge home from our standpoint as well. Dressing was changed today, with new Xeroform, 4 x 4 gauze, Kerlix, and an Mayank wrap. - Should follow-up outpatient in 1 week for another dressing change. - Plan for sutures to removed at 2 weeks - We did discuss that she should present sooner if she notices any new concerns, including new questions of infection or soiling of her dressing. Patient understands and will schedule follow-up accordingly Admission and Anticipated Discharge Date Admission Date: September 18, 2023 Subjective Patient seen at bedside, comfortably seated. No new concerns. Anxious to be discharged. Has discussed this with Dr. Iraheta and is planning discharge this morning.No pain is noted to the foot or surgical site specifically. Review of Systems Constitutional: + fever and + fatigue; no chills Eyes: no problem reported Ear, Nose, Mouth, Throat: no problem reported Respiratory: no problem reported Cardiovascular: + edema; no problem reported Gastrointestinal: no nausea, no vomiting and no problem reported Genitourinary: no problem reported Musculoskeletal: no problem reported Integumentary: + non-healing lesions, + skin ulcer, + w ounds and + erythema Neurologic: + loss of sensation, + numbness and + pa resthesia; no generalized weakness Psychiatric: no problem reported Physical Exam Physical Exam: Pulses dopplerable on clinical exam and faintly palpable, improved since admission. Fourth toe amputation site is clean with no evidence of local infection. Pain on palpation specifically of the surgical site is noted, consistent with level of surgical invention. Sutures remain intact with no early dehiscence. Constitutional: WD/WN, vitals as above + ill appearing and + obese Eyes: PERRL, conjunctivae normal, anicteric sclerae ENMT: external ear and nose normal, oropharynx normal Mouth: + edentulous and + poor dentition Neck: trachea midline, no thyromegaly normal visual inspection Respiratory: normal respiratory effort; no respiratory distress Cardiovascular: Rate/Rhythm: regular rate and regular rhythm Vessels: + posterior tibial pulses abnormal and + dorsalis pedis pulses abnormal Chest (Breasts): Chest: normal inspection of chest Gastrointestinal (Abdomen): Inspection/Auscultation: abdomen normal to inspection Percussion/Palpation: + abdomen tender and abdomen soft Musculoskeletal: no cyanosis or clubbing, extremities motor strength 5/5 Head/Neck/Chest: normocephalic and head atraumatic Extremities: extremities normal to inspection Skin: + ulcer, + skin tightening, + wound, + s kin atrophy, + dry skin and + nails dystrophic Neurologic: awake; + abnormal sensation to monofilament and no focal motor deficits Psychiatric: A+Ox3, euthymic affect Results & Data Results & Data Vital Signs (Past 12 Hours) Vital Signs Temp Pulse Pulse Resp BP Pulse Ox O2 Del Method 09/23/23 07:22 36.8 C 86 18 133/78 98 Room Air 09/23/23 07:00 75 09/23/23 03:35 36.7 C 74 19 125/81 Room Air 09/22/23 22:43 36.7 C 71 19 129/79 96 Room Air (3) Peripheral neuropathy Peripheral neuropathy type: polyneuropathy associated with underlying disease Qualified Code(s): G63 - Polyneuropathy in diseases classified elsewhere (4) Diabetic foot ulcer Diabetic foot ulcer location: toe Diabetes mellitus type: type 2 Laterality: unspecified laterality Non-pressure ulcer stage: with fat layer exposed Qualified Code(s): E11.621 - Type 2 diabetes mellitus with foot ulcer; L97.502 - Non-pressure chronic ulcer of other part of unspecified foot with fat layer exposed
[2023-09-23] MEDS: levoFLOXacin 750 MG TAB PO SCH (10:16)
[2023-09-23] MEDS ORDERED: VANCOMYCIN HCL 1,250 MG in SODIUM CHLORIDE 0.9% 250 ML IV SCH (12:00)
--- NOTE | 2023-09-23 12:18 | Discharge Summary ---
Discharge Summary Date of Service September 23, 2023 Notes For Next Care Provider Follow up for non invasive vascular imaging in [address] Hay Follow up in 1 week with podiatry Follow up in 2 weeks for suture removal Medication Changes From Visit continue Aspirin/Plavix for 1 year uninterrupted Levofloxacin 750mg q2 day 2/2 renal function for 5 doses Admission HPI Per Admitting Provider Ms. Gonzalez is a 43 year old female that presented to the ED as recommended by her roustabout pusher. She has been being followed as an outpatient for a 4th toe wound infection through the wound clinic as well. Her wound has been dressed with Aquacel Ag. She was started on Ciprofloxacin on 09/17. Her original injury to her toe occurred in July 2023 and has been worsening since. An MRI was scheduled for September/2023 to evaluate for osteomyelitis and she was referred to Dr. Boyd for surgical consultation which was to take place tomorrow 09/18. Additionally patient was to have arterial venous studies done on 10/03/2023. Additional past medical history includes DVT, ycr-hjflbjo-srpesbaqi diabetes, CKD, meth use, history of IVDA (last use 6 years ago), hepatitis C, h/o seizures (On Keppra). Her last seizure was a few years ago. She takes Keppra compliantly. Left foot c-ray: Findings concerning for osteomyelitis of the fourth digit distal phalanx with prominent bony erosion. Leukocytosis 12.76, AJIT creatinine 1.63, elevated CRP 1.89, lactate is pending. Patient was started on Zosyn plus Vanco and ED which we will switch to daptomycin given her AJIT. Foot x-ray left indicates findings concerning for osteomyelitis of the fourth distal phalanx with prominent bony erosion. Patient will be admitted for further evaluation of her left toe infection that meets SIRS criteria with IV fluids, WOCN, Podiatry consult, blood cultures, continued IV abx including Zosyn + Daptomycin, hold statin. Admission Exam Per Admitting Provider Neuro: AAOx4, PERRLA, no aphagia, memory changes, CNII-XII grossly intact HEENT: head normocephalic, moist mucus membranes CV: S1/S2, (+) M (-) G/R, (-) edema, cap refill < 3 seconds Resp: Lungs CTA in all christina. On RA GI: Abdomen S/NT/ND, Ax4 bowel sounds, (-) CVA tenderness Musculoskeletal: 5/5 B/L UE strength, 5/5 B/L LE strength. No gait disturbance Skin: (-) rashes , (-) erythema. L distal plantar arterial ulcer dime-sized. (+) neuropathy 2/3 up calf. (-) malodor. (+) green/yellow drainage. Numerous ar terial ulcers on both legs. Psych: euthymic mood Principal Dx & Hospital Course #1 = Principal Diagnosis (1) Diabetic infection of left foot: (2) Peripheral neuropathy: (3) AJIT (acute kidney injury): (4) Polysubstance abuse: (5) HTN (hypertension): (6) HLD (hyperlipidemia): (7) Coronary artery disease: (8) Diabetes mellitus, type 2: (9) History of DVT (deep vein thrombosis): (10) CKD (chronic kidney disease), stage III: (11) Diabetic foot ulcer: (12) History of seizure: Plan Ms. Gonzalez is a 43 year old female that presented to the ED as recommended by her roustabout pusher. She has been being followed as an outpatient for a 4th toe wound infection through the wound clinic as well. Her wound has been dressed with Aquacel Ag. She was started on Ciprofloxacin on 09/17. Her original injury to her toe occurred in July 2023 and has been worsening since. An MRI was scheduled for September/2023 to evaluate for osteomyelitis and she was referred to Dr. Boyd for surgical consultation which was to take place tomorrow 09/18. Additionally patient was to have arterial venous studies done on 10/03/2023. Additional past medical history includes DVT, kin-iazsino-qsyesnhue diabetes, CKD, meth use, history of IVDA (last use 6 years ago), hepatitis C, h/o seizures (On Keppra). Her last seizure was a few years ago. She takes Keppra compliantly. Left foot x-ray: Findings concerning for osteomyelitis of the fourth digit distal phalanx with prominent bony erosion. Patient started on meropenem for pseudomonas/klebsiella given susceptibility YENNI <16 for zosyn, <1 with miriam; however, ID highlighted CLSI breakpoints which indicate that Zosyn would remain the appropriate choice. Vanc/Zosyn started Podiatry and Vascular on consult: completed revascularization at 09/19 and amputation on 09/20 On day of discharge patient states she is feeling "great" and pain is moderately controlled--discussed short term medication for home for pain management. Verbalized understanding Patient ambulating without difficulty in CAM boot #Acute on chronic anemia, post op Hgb baseline 8-9, 7.3 this morning Given revascularization and severe vascular disease/CAD will transfuse to goal >8 1 UPRBC administered 09/21, hgb responded appropriately #Sepsis secondary to diabetic infection of left 4th toe: POA, resolved #osteomyelitis of 4th toe #Peripheral neuropathy: Foot x-ray left foot concerning of osteomyelitis fourth digit proximal bony erosion. IV Zosyn started in ED; continue for now and adjust based on wound culture and blood culture results Follows wound clinic outpatient continue while inpatient here Foot x-ray : Findings concerning for osteomyelitis of the fourth digit distal phalanx with prominent bony erosion. Takes gabapentin; continue Podiatry consult placed -amputation per 09/20 Lactate 1.1 blood cultures NGTD ID consult D/C meropenem,continue Zosyn and Vanc per ID---will discontinue after EKG and po antibiotic regimen cooridnated -Discussed final abx recommendations with Dr. Teresa Xie Infection Disease conduit cleaner "if podiatry thinks they have source control meaning there is no infection left then the patient does not need any further antibiotics" -Podiatry: "would benefit from 10 day course of po antibiotic" -Given sensitivity to fluoroquinolones, will do 10 days of levoquin, 750 levaquin EOD Discussion to be had regarding duration of therapy per ID based up on biospy results #PAD with left DISPLAY FABRICATOR/SFA/popliteal disease on US -Revascularization 09/19, dapt for 1 months 1. Left lower extremity --30-40% distal DISPLAY FABRICATOR, diffuse calcified SFA disease up to 90% distally, sequential 60% popliteal lesions. Three-vessel distal runoff with intact DPA/plantar arteries and pedal arch. 2. Right lower extremity --diffuse calcified DISPLAY FABRICATOR 50%, 70% ostial SFA, 50% ostial profunda. 3. Successful left SFA/popliteal intravascular lithotripsy (5.0 shockwave) and angioplasty with drug-eluting balloons (5.0 x 220, 5.0 x 60). Follow-up non-invasive vascular testing in 2 weeks. #CKD III Chronic serum creatinine 1.58; baseline 1.57-1.90 Renally dose levofloxacin #HTN: Chronic Takes lisinopril; continue #CAD: Chronic Status post two-vessel ROJAS placed 10/2016 Takes aspirin plus Plavix;continue #Dfc-umedizq-nsitmvlgd diabetic: Chronic Takes metformin; hold patient placed on SSI ACHS 6.0% 09/18 #COPD: Chronic Takes Breo-Ellipta;continue #History of DVT: Chronic Years ago not on any anticoagulation #History of IVDA: Chronic Reports last use 6 years ago Takes Suboxone; continue #Depression: Chronic Takes Lexapro; continue Discharge Exam Constitutional WD/WN, vitals as above Respiratory normal respiratory effort, lungs clear to auscultation Cardiovascular RRR, no murmur, no edema Musculoskeletal no cyanosis or clubbing, extremities motor strength 5/[address]; podiatry in and changes dressing this morning Updated Medication List Medication Instructions Recorded Confirmed Type albuterol sulfate 2.5 mg/3 mL 2.5 mg inhalation Q4 PRN 07/10/21 09/18/23 History (0.083 %) solution for nebulization WHEEZE/COUGH albuterol sulfate 90 mcg/actuation 2 puff inhalation Q4 PRN cough or 07/10/21 09/18/23 History aerosol inhaler wheezing atorvastatin 80 mg tablet 80 mg PO QAM 07/10/21 09/18/23 History buspirone 15 mg tablet 15 mg PO AMHS 07/10/21 09/18/23 History clopidogrel 75 mg tablet 75 mg PO DAILY 07/10/21 09/18/23 History cyclobenzaprine 10 mg tablet 10 mg PO BID 07/10/21 09/18/23 History levetiracetam 500 mg tablet 500 mg PO AMHS 07/10/21 09/18/23 History lisinopril 5 mg tablet 5 mg PO QAM 07/10/21 09/18/23 History metformin 1,000 mg tablet 1,000 mg PO BID 07/10/21 09/18/23 History metoprolol succinate 25 mg 25 mg PO DAILY 07/10/21 09/18/23 History tablet,extended release 24 hr polyethylene glycol 3350 17 gram 17 g PO DAILY PRN Constipation 07/10/21 09/18/23 History oral powder packet (Miralax) potassium chloride 20 mEq 20 meq PO QAM 07/10/21 09/18/23 History tablet,extended release(part/cryst) (Klor-Con M) torsemide 20 mg tablet 20 mg PO DAILY 07/10/21 09/18/23 History trazodone 50 mg tablet 100 mg PO HS 07/10/21 09/18/23 History aspirin 81 mg tablet,delayed 81 mg PO DAILY 03/03/22 09/18/23 History release famotidine 20 mg tablet 20 mg PO BID PRN Heartburn 03/03/22 09/18/23 History fluticasone furoate 200 1 inh inhalation QAM 03/03/22 09/18/23 History mcg-vilanterol 25 mcg/dose inhalation powder (Breo Ellipta) gabapentin 300 mg capsule 600 mg PO BID@0800,1400 03/03/22 09/18/23 History nitroglycerin 0.4 mg sublingual 0.4 mg sublingual DAILY PRN Chest 03/03/22 09/18/23 History tablet Pain ferrous sulfate 325 mg (65 mg 325 mg PO Q2D 04/22/23 09/18/23 History iron) tablet gabapentin 300 mg capsule 900 mg PO HS 04/22/23 09/18/23 History meclizine 25 mg tablet 25 mg PO TID PRN Dizziness 04/22/23 09/18/23 History buprenorphine 8 mg-naloxone 2 mg 1 tab sublingual DAILY 05/28/23 09/18/23 History sublingual tablet escitalopram oxalate 20 mg tablet 20 mg PO QAM 08/19/23 09/18/23 History collagenase clostridium histo. 250 1 applic topical DAILY #30 grams 09/09/23 09/18/23 Rx unit/gram topical ointment (Santyl) levofloxacin 750 mg tablet 750 mg PO Q2D@1100 #5 tabs 09/23/23 Rx Hospital Stay Data Consultations 09/18/23 13:56 ED Decision to Admit Stat 09/18/23 14:25 Consult Podiatry Routine 09/19/23 10:53 Consult Infectious Diseases Routine 09/19/23 10:55 Consult Vascular Surgery Routine Procedures Performed Operation Date: 09/21/23 08:55 Actual Procedures p Left 4th toe Amputation(Left) - Anali Holland DPM Diagnostic Imagining Performed 09/18/23 22:06 US arterial duplex LE LT Routine 09/20/23 06:56 CL Cath Imgs for PACS use only Routine Pending Results Patient Have Any Pending Studies at Discharge: No Discharge Instructions Given to Patient (Per Discharging Provider) You were admitted for bone infection and noted to also have poor circulation. You underwent procedure and stent placement to help blood flow in left leg. You will need to continue Aspirin/Plavix for 1 year uninterrupted (you already take this regimen for your heart) You should have follow up arranged for non-invasive vascular testing in [address] Hay's team You underwent toe amputation as well. Podiatry changed your dressing on 09/22 and will follow you Outpatient - Should follow-up outpatient in 1 week for another dressing change. - Plan for sutures to removed at 2 weeks Please start Levofloxacin, 1 tablet every two days--your next dose will be 09/24 in the morning Total Time Total Time Spent Total Time Spent (In Minutes): 45
--- NOTE | 2023-09-26 07:17 | Operative Report ---
Post Operative Report Pre & Post Diagnosis Operation Date: 09/21/23 08:55 Pre-Op Diagnosis: (1) Acute osteomyelitis of toe of left foot: (2) Diabetic infection of left foot: (3) Peripheral neuropathy: (4) Diabetic foot ulcer: Post-Op Diagnosis: (1) Acute osteomyelitis of toe of left foot: (2) Diabetic infection of left foot: (3) Peripheral neuropathy: (4) Diabetic foot ulcer: I identified the patient and participated in the time-out.: Yes Procedure Operation Date: 09/21/23 08:55 Actual Procedures p Left 4th toe Amputation(Left) - Anali Holland DPM Surgeon Anali Holland DPM Product Development Manager none Estimated Blood Loss 25 Findings See Below osteonecrosis of distal phalanx 4th toe consistent with osteomeylitis Specimens 1. left fourth toe distal phalanx soft tissue/bone for aerobic and anaerobic cultures with gram stain and 2. left fourth toe for pathology Anesthesia Type MAC Complications none Disposition Accompanied Patient To Recovery: Yes Indications Patient is a 43 year old female with left 4th diabetic toe ulcer. Patient presented to [facility] emergency department as advised per the [facility]. Previously she was referred by the wound care center as an outpatient referral to our office, but rescheduled multiple times due to transportation issues. Further, reviewing x-ray imaging does reveal acute osteomyelitis of the distal phalanx of the left fourth toe. She states that she has had difficulty in healing this ulcer and has had some systemic signs of infection as well. The patient underwent revascularization performed with Dr. Hay yesterday and wants to proceed with surgery consisting of a left fourth toe amputation to address her left fourth diabetic toe wound. Discussed the possible risks including but not limited to infection, swelling, transfer lesions, wound dehiscence, blood clots, deep venous thrombosis, pulmonary embolism, chronic pain, nerve injury, numbness, loss of limb, loss of life, failure of procedure and need for additional procedures. Discussed risks, benefits, and alternatives to surgery. Patient states she understands and wants to proceed. Description of Procedure The patient was brought back into the operating room and placed on the OR table in the supine position. A time was performed in order to correctly identify the patient, planned procedure, and correct side of limb. MAC was performed per the anesthesiologist. 10 cc of 0.25% marcaine plain was administered for a fourth digital block under aseptic technique. No tourniquet was utilized. The left lower extremity was prepped, scrubbed, draped in the usual aseptic manner. Attention was then directed to the left fourth toe at the MTPJ where two semi elliptical incisions were made with the 15 blade. The incision was deepened down to the level the MTPJ, where the left fourth toe was disarticulated at the MTPJ, and passed from the operative field to the back table. Copious amount of saline was utilized to irrigate the surgical wound. No proximal purulence was identified. The head of the fourth metatarsal head appeared healthy with intact cartilage. All bleeders were cauterized as necessary. Deep closure was performed with 4-0 monocryl. The skin was coapted with 4-0 nylon in interrupted horizontal fashion. The incision was dressed with xeroform, 4x4 gauze, kerlix, and Mayank bandage. The patient tolerated the procedure and anesthesia well with all vital signs stable and vascular status intact to the left foot. Attention was then directed to the sterile back table to obtain 2 specimens from the fourth toe as follows: 1. left fourth toe distal phalanx soft tissue/bone for aerobic and anaerobic cultures with gram stain and 2. left fourth toe for pathology. The patient was transferred to recovery for brief post operative monitoring and will be transferred back to the floor for continued medical management. Recommendations for the patient to be discharged on her current oral antibiotics and to follow up with our office in 1 week. The patient should keep the bandage dry, clean, and intact until first post op visit in office. The patient may ambulate as tolerated in post op shoe. The patient is cleared for discharged per podiatry and to be discharged when stable per medicine. I attest to the content of the Intraoperative Record and any orders documented therein. Any exceptions are noted below.
== END 2023-09-23 10:46 | disposition home or self-care (01) | DRG 854 ==
LOC: ED 12:15 → 2W 14:23 → SUATTDRO 14:23 → 2W 15:02 → 2S 09-20 10:54
PROC: CLB.AEU (2023-09-20 07:00)